=== PATIENT | male | born 1955 | race African-American/Black ===

== ENCOUNTER 2016-08-19 18:41 | Inpatient (IN) | payer OTHER ==
[2016-08-19] MEDS ORDERED: ACETAMINOPHEN 1000 MG/100 ML VIAL (NON FORMULARY) IVPB ONE (19:55)
[2016-08-19] MEDS ORDERED: ACETAMINOPHEN INJECTION 100 ML IVPB ONE (20:24)
[2016-08-19 20:51] LABS: MCH 19.3 pg (25.7-33.7); MCHC 29.7 g/dl (32.0-35.9); MEAN PLT VOLUME 6.8 fl (7.5-11.1); PLATELET COUNT 553 K/MM3 (134-434); RDW 24.7 % (11.9-15.9); WHITE BLOOD COUNT 26.1 K/mm3 (4.0-10.0)
[2016-08-19 21:02] LABS: INR 1.58 (0.82-1.09); PROTHROMBIN TIME (PATIENT) 17.5 SEC (9.98-11.88)
[2016-08-19 21:11] LABS: ALBUMIN 1.6 g/dl (3.4-5.0); ANION GAP 7 (8-16); BILIRUBIN,TOTAL 0.3 mg/dL (0.2-1.0); CALCIUM 8.2 mg/dL (8.5-10.1); CO2 19 mmol/L (21-32); COCKROFT - GAULT 39.38; CREATININE 2.7 mg/dL (0.7-1.3); GLUCOSE,RANDOM 254 mg/dL (74-106); SGOT/AST 11 U/L (15-37); SGPT/ALT 8 U/L (12-78); TOT PROT 6.9 g/dl (6.4-8.2)
[2016-08-19 21:13] LABS: ALK PHOS 145 U/L (45-117); TROPONIN I < 0.02 ng/ml (0.00-0.05)
[2016-08-19 21:16] LABS: ANISOCYTOSIS 2+; HYPOCHROMIA 3+; MICROCYTOSIS 2+; PLATELET ESTIMATE MOD INCREASED (NORMAL); SCHISTOCYTES 1+
[2016-08-19] MEDS ORDERED: INSULIN REGULAR HUMAN 100 UNITS/ML *VIAL IVPUSH ONE (21:19)
[2016-08-19] MEDS ORDERED: DEXTROSE 50%-WATER 50 ML VIAL IVPUSH ONE (21:19)
[2016-08-19] MEDS ORDERED: DEXTROSE 50%-WATER 50 ML DISP.SYRIN ONE (21:37)
[2016-08-19] MEDS ORDERED: HEMOQUE TEST 1 EACH EACH ONE (21:39)
--- NOTE | 2016-08-19 22:11 | PDOC ---
History of Present Illness <Didi Appiah - Last Filed: 08/19/16 22:48> - General History Source: Patient Exam Limitations: No Limitations - History of Present Illness Initial Comments: 08/19/16 22:11 Patient is a 60 year old male with h/o DM, osteomylitis, amputation Left TMA, and right great toe c/o syncope today. States was attempting to go to his bedroom to call for his pills, having pain in the left leg when she tried to walk. States the next thing he remembers was being on the gurney with EMS and having pain to right forehead and neck. Denies nausea, vomiting, dizziness, chest pain, abd pain. PMD:Dr. Bonilla PMHX: as above PSOCHX; lives in an adult home, (+) 5/cig/day, occ beer FamHx; noncontributory ALLERGY: NKDA GENERAL/CONSTITUTIONAL: [No fever or chills. No weakness. No weight change.] HEAD, EYES, EARS, NOSE AND THROAT: [No change in vision. No ear pain or discharge. No sore throat.] CARDIOVASCULAR: [No chest pain or shortness of breath.] RESPIRATORY: [No cough, wheezing, or hemoptysis.] GASTROINTESTINAL: [No nausea, vomiting, diarrhea or constipation. No rectal bleeding.] GENITOURINARY: [No dysuria, frequency, or change in urination.] MUSCULOSKELETAL: (+) joint or muscle swelling or pain. No neck or back pain.] SKIN AND BREASTS: (+) hyperpigmentation lower ext. No rash or easy bruising.] NEUROLOGIC: [No headache, vertigo, loss of consciousness, or loss of sensation.] PSYCHIATRIC: [No depression or anxiety.] ENDOCRINE: [No increased thirst. No abnormal weight change.] HEMATOLOGIC/LYMPHATIC: [No anemia, easy bleeding, or history of blood clots.] ALLERGIC/IMMUNOLOGIC: [No hives or skin allergy. No latex allergy.] GENERAL: [The patient is awake, alert, and fully oriented, in no acute distress. ] HEAD: [Normal with no signs of trauma.] EYES: [Pupils equal, round and reactive to light, extraocular movements intact, sclera anicteric, conjunctiva clear.] ENT: [Ears normal, nares patent, oropharynx clear without exudates. Moist mucous membranes.] NECK: [Normal range of motion, supple without lymphadenopathy, JVD, or masses. ( +) tenderness to right paraspinal.] LUNGS: [Breath sounds equal, clear to auscultation bilaterally. No wheezes, and no crackles.] HEART: [Regular rate and rhythm, normal S1 and S2 without murmur, rub.] ABDOMEN: [Soft, nontender, normoactive bowel sounds. No guarding, no rebound. No masses.] EXTREMITIES: (+) Decreased range of motion left lower extremity, (+) edema left lower extremity, hyperpigmentation left lower extremity, amputee left TMA, right great toe. No cords, erythema, (+) tenderness left lower ext NEUROLOGICAL: [Cranial nerves II through XII grossly intact. Normal speech, normal gait.] PSYCH: [Normal mood, normal affect.] SKIN: (+) Moderate swelling right forehead, ecchymosis nose, 2 cm laceration right eyebrow. Hyperpigmentation left foot, edema left lower extremity. <Mirtha De Paz - Last Filed: 08/20/16 01:52> - General Chief Complaint: Syncope/Near Syncope Stated Complaint: FALL Time Seen by Provider: 08/19/16 19:26 Past History <Didi Appiah - Last Filed: 08/19/16 22:48> - Past Medical History Anemia: No Asthma: No Cancer: No Cardiac Disorders: No CVA: No COPD: Yes CHF: No Dementia: No Diabetes: Yes (on insulin, with neuropathy , diabetic foot ulcer) GI Disorders: No Disorders: No HTN: Yes Hypercholesterolemia: No Liver Disease: No Suicide Attempt (Hx): No Seizures: No Thyroid Disease: No Lung CA: Yes (depression) - Surgical History Abdominal Surgery: Yes (HERNIA) Appendectomy: No Cardiac Surgery: No Cholecystectomy: No Lung Surgery: No Neurologic Surgery: No Orthopedic Surgery: Yes (transmetatarsal amputation left foot, rt gr toe amputation) - Psycho/Social/Smoking Cessation Hx Anxiety: Yes (PTSD since 01/07) Suicidal Ideation: No Smoking Status: No Smoking History: Never smoked Have you smoked in the past 12 months: No Number of Cigarettes Smoked Daily: 0 Cigars Per Day: 1 Information on smoking cessation initiated: No 'Breaking Loose' booklet given: 03/08/16 Hx Alcohol Use: No Drug/Substance Use Hx: No Substance Use Type: Alcohol, Marijuana Hx Substance Use Treatment: No <Mirtha De Paz - Last Filed: 08/20/16 01:52> - Past Medical History Allergies/Adverse Reactions: Allergies Allergy/AdvReac Type Severity Reaction Status Date / Time shellfish derived Allergy Severe "HIVES" Verified 08/19/16 18:52 No Known Drug Allergies Allergy Verified 08/19/16 18:52 Home Medications: Ambulatory Orders Amlodipine Besylate [Norvasc -] 10 mg PO DAILY 11/07/14 Ascorbate Calcium [Vitamin C] 500 mg PO DAILY 11/07/14 Duloxetine HCl 30 mg PO DAILY 11/07/14 Ferrous Sulfate [Feosol] 325 mg PO DAILY 11/07/14 Folic Acid - 1 mg PO DAILY 11/07/14 Insulin (Levemir) [Levemir Flexpen -] 30 units SQ BID 11/07/14 Insulin Aspart [Novolog Flexpen] 0 unit SQ UTDICT 11/07/14 Trazodone HCl 300 mg PO HS 11/07/14 Vitamin B Complex [Super B Complex] 1 each PO DAILY 11/07/14 Zinc Sulfate 220 mg PO DAILY 11/07/14 Doxazosin Mesylate [Cardura -] 4 mg PO DAILY #30 tablet 11/24/14 Cholecalciferol (Vitamin D3) [Vitamin D3] 50,000 unit PO WEEKLY 12/07/15 Aspirin [ASA -] 81 mg PO DAILY 03/08/16 Hydrochlorothiazide [Hctz -] 25 mg PO DAILY #30 tab MDD 1 08/01/16 Oxycodone HCl/Acetaminophen [Percocet 5-325 mg Tablet] 1 tab PO QID #120 tablet MDD 4 08/01/16 Albuterol Sulfate Inhaler - [Ventolin Hfa Inhaler -] 2 inh PO Q4H PRN 08/19/16 Insulin Glargine,Hum.rec.anlog [Lantus Solostar PEN (NF)] 15 units SQ BID Metformin HCl [Metformin HCl ER] 500 mg PO BID 08/19/16 Mirtazapine [Remeron -] 30 mg PO HS 08/19/16 Omeprazole 20 mg PO DAILY 08/19/16 Pregabalin [Lyrica -] 150 mg PO TID MDD 2 08/19/16 Valsartan [Diovan] 80 mg PO DAILY 08/19/16 *Physical Exam - Vital Signs Last Vital Signs Temp Pulse Resp BP Pulse Ox 98.9 F 75 20 117/70 99 08/19/16 22:01 08/19/16 22:01 08/19/16 22:01 08/19/16 22:01 08/19/16 22:01 <Didi Appiah - Last Filed: 08/19/16 22:48> - Vital Signs Last Vital Signs Temp Pulse Resp BP Pulse Ox 99.1 F 97 H 20 135/66 91 L 08/19/16 19:06 08/19/16 18:52 08/19/16 18:52 08/19/16 18:52 08/19/16 18:52 <Mirtha De Paz - Last Filed: 08/20/16 01:52> ED Treatment Course - LABORATORY CBC & Chemistry Diagram: 08/19/16 20:40 08/19/16 20:40 - ADDITIONAL ORDERS Additional order review: Laboratory Results 08/19/16 08/19/16 08/19/16 21:00 20:40 20:40 INR Sodium 130 L Potassium 6.8 H* D Chloride 104 Carbon Dioxide 19 L D Anion Gap 7 L BUN 41 H D Creatinine 2.7 H D Creat Clearance w eGFR 24.23 Random Glucose 254 H D Calcium 8.2 L Total Bilirubin 0.3 D AST 11 L D ALT 8 L D Alkaline Phosphatase 145 H D Creatine Kinase 141 Troponin I < 0.02 Total Protein 6.9 Albumin 1.6 L D Stool Occult Blood Negative Alcohol, Quantitative < 5.0 08/19/16 20:40 INR 1.58 H D Sodium Potassium Chloride Carbon Dioxide Anion Gap BUN Creatinine Creat Clearance w eGFR Random Glucose Calcium Total Bilirubin AST ALT Alkaline Phosphatase Creatine Kinase Troponin I Total Protein Albumin Stool Occult Blood Alcohol, Quantitative 08/19/16 20:40 RBC 1.92 L D MCV 65.0 L D MCHC 29.7 L RDW 24.7 H MPV 6.8 L D Neutrophils % 90.0 H D Lymphocytes % 8.0 D Monocytes % 2.0 L - Medications Given in the ED: ED Medications Discontinued Medications Generic Name Dose Route Start Last Admin Trade Name Freq PRN Reason Stop Dose Admin Acetaminophen 1,000 mg 08/19/16 19:55 08/19/16 20:25 Ofirmev Injection - IVPB 08/19/16 19:56 1,000 mg ONCE ONE Administration Dextrose 50 ml 08/19/16 21:19 08/19/16 21:56 D50w (Vial) - IVPUSH 08/19/16 21:20 50 ml NOW ONE Administration Insulin Human Regular 10 units 08/19/16 21:19 08/19/16 21:56 Novolin R Vial *For Ivpush Or Iv Drip Only* IVPUSH 08/19/16 21:20 10 units ONCE ONE Administration <TdDiid - Last Filed: 08/19/16 22:48> - LABORATORY CBC & Chemistry Diagram: 08/19/16 23:02 08/19/16 23:02 - ADDITIONAL ORDERS Additional order review: Laboratory Results 08/19/16 08/19/16 08/19/16 21:00 20:40 20:40 INR 1.58 H D Sodium 130 L Potassium 6.8 H* D Chloride 104 Carbon Dioxide 19 L D Anion Gap 7 L BUN 41 H D Creatinine 2.7 H D Creat Clearance w eGFR 24.23 Random Glucose 254 H D Calcium 8.2 L Total Bilirubin 0.3 D AST 11 L D ALT 8 L D Alkaline Phosphatase 145 H D Creatine Kinase 141 Troponin I < 0.02 Total Protein 6.9 Albumin 1.6 L D Stool Occult Blood Negative 08/19/16 20:40 RBC 1.92 L D MCV 65.0 L D MCHC 29.7 L RDW 24.7 H MPV 6.8 L D Neutrophils % 90.0 H D Lymphocytes % 8.0 D Monocytes % 2.0 L - RADIOLOGY Radiology Studies Ordered: Category Date Time Status CERVICAL SPINE CT W/O CONTR [CT] Stat CT Scan 08/19/16 19:[address] W/O CONTRAST [CT] Stat CT Scan 08/19/16 19:[address] WITHOUT CONTRAST [CT] Stat CT Scan 08/19/16 19:52 Taken CHEST X-RAY PORTABLE* [RAD] Stat Radiology 08/19/16 21:19 Ordered - Medications Given in the ED: ED Medications Discontinued Medications Generic Name Dose Route Start Last Admin Trade Name Freq PRN Reason Stop Dose Admin Acetaminophen 1,000 mg 08/19/16 19:55 08/19/16 20:25 Ofirmev Injection - IVPB 08/19/16 19:56 1,000 mg ONCE ONE Administration Dextrose 50 ml 08/19/16 21:19 08/19/16 21:56 D50w (Vial) - IVPUSH 08/19/16 21:20 50 ml NOW ONE Administration Insulin Human Regular 10 units 08/19/16 21:19 08/19/16 21:56 Novolin R Vial *For Ivpush Or Iv Drip Only* IVPUSH 08/19/16 21:20 10 units ONCE ONE Administration <Mirtha De Paz - Last Filed: 08/20/16 01:52> Medical Decision Making - Medical Decision Making 08/19/16 23:38 Patient is a 60 year old male with h/o DM, osteomylitis, HTN, amputation Left TMA, and right great toe c/o syncope today, no prodrome ext for pain to his leg. will get labs, ct head and neck tylenol for pain CT head neg for bleed CT neck no fracture noted to have hgb of 3, will get type and transfuse 2 units PRBC noted to have K+ 6 will treat with insulin, D50 1 amp EKG SR rate 74, NAD, PAC CXR neg wbc of 26 without source will get blood cultures x 2 and lactic D/W with ICU will admit d/w with hospitalist will admit. <Mirtha De Paz - Last Filed: 08/20/16 01:52> *DC/Admit/Observation/Transfer - Discharge Dispostion Admit: Yes <Didi Appiah - Last Filed: 08/19/16 22:48> <Mirtha De Paz - Last Filed: 08/20/16 01:52> Diagnosis at time of Disposition: Edema of both legs, S/P amputation, Hyperkalemia, Severe anemia - Referrals Addendum entered and electronically signed by Mirtha De Paz 08/20/16 04: 21: Progress Note - Progress Note Progress Note: Late entery procedure note 2.5 cm y shaped laceration to the right eyebrow was anesthetized locally, cleansed betadine, wound was explored for FB and irrigated, no FB found. Wound was sutured with 5-0 nylon x 9. Patient tolerated procedure well. Informed that the sutures need to be removed in 7 days.
[2016-08-19 23:11] LABS: MCHC 30.1 g/dl (32.0-35.9); MEAN CELL VOLUME 65.4 fl (80-96); MEAN PLT VOLUME 7.1 fl (7.5-11.1); PLATELET COUNT 561 K/MM3 (134-434); RDW 25.1 % (11.9-15.9); WHITE BLOOD COUNT 26.3 K/mm3 (4.0-10.0)
[2016-08-19 23:12] LABS: MCH 19.7 pg (25.7-33.7)
[2016-08-19 23:30] LABS: CALCIUM 8.7 mg/dL (8.5-10.1); COCKROFT - GAULT 37.97; CREATININE 2.8 mg/dL (0.7-1.3)
[2016-08-20] MEDS ORDERED: SODIUM POLYSTYRENE SULFONATE 15 GM/60 ML BOTTLE PO ONE ×2 (00:08→21:00)
[2016-08-20] MEDS ORDERED: ALBUTEROL SO4 6.7 GM HFA INHALER IH PRN (00:08)
--- NOTE | 2016-08-20 00:24 | HP ---
<Cinthia Aparicio - Last Filed: 08/20/16 01:05> CHIEF COMPLAINT: Syncope x1 episode PCP: HISTORY OF PRESENT ILLNESS: 60 yo M presents to ED after an episode of syncope that occurred at the assisted living facility. Patient reports remembering getting out of bed and the next thing he remembers is being transported to the hospital. He lost consciousness and did sustain head trauma. He reports recent Hx of fatigue, decreased appetite and progressively declining functional status. His mobility is limited due to left foot transmetatarsal amputation as well as Hx of LE ulcers. Initial work up in the ED revealed anemia with hgb levels of 3.7, STAT blood transfusion was ordered and pt was referred for further management to medical team. Recent Travel: Denies PAST MEDICAL HISTORY: - HTN - diabetes - diabetic neuropathy - diabetic nephropathy - left foot osteomyelitis PAST SURGICAL HISTORY: - Left foot transmetatarsal amputation - Right foot toe amputation. Social History: Smokin cigarettes a day since 1969 Alcohol: Denies Drugs: Denies Family History: Allergies shellfish derived Allergy (Severe, Verified 08/19/16 18:52) "HIVES" SWELLING No Known Drug Allergies Allergy (Verified 08/19/16 18:52) HOME MEDICATIONS: Home Medications Medication Instructions Recorded Amlodipine Besylate [Norvasc -] 10 mg PO DAILY 11/07/14 Ascorbate Calcium [Vitamin C] 500 mg PO DAILY 11/07/14 Duloxetine HCl 30 mg PO DAILY 11/07/14 Ferrous Sulfate [Feosol] 325 mg PO DAILY 11/07/14 Folic Acid - 1 mg PO DAILY 11/07/14 Insulin (Levemir) [Levemir Flexpen 30 units SQ BID 11/07/14 -] Insulin Aspart [Novolog Flexpen] 0 unit SQ UTDICT 11/07/14 Trazodone HCl 300 mg PO HS 11/07/14 Vitamin B Complex [Super B Complex] 1 each PO DAILY 11/07/14 Zinc Sulfate 220 mg PO DAILY 11/07/14 Doxazosin Mesylate [Cardura -] 4 mg PO DAILY #30 tablet 11/24/14 Cholecalciferol (Vitamin D3) 50,000 unit PO WEEKLY 12/07/15 [Vitamin D3] Aspirin [ASA -] 81 mg PO DAILY 03/08/16 Hydrochlorothiazide [Hctz -] 25 mg PO DAILY #30 tab MDD 1 08/01/16 Oxycodone HCl/Acetaminophen 1 tab PO QID #120 tablet MDD 4 08/01/16 [Percocet 5-325 mg Tablet] Albuterol Sulfate Inhaler - 2 inh PO Q4H PRN 08/19/16 [Ventolin Hfa Inhaler -] Insulin Glargine,Hum.rec.anlog 15 units SQ BID 08/19/16 [Lantus Solostar PEN (NF)] Metformin HCl [Metformin HCl ER] 500 mg PO BID 08/19/16 Mirtazapine [Remeron -] 30 mg PO HS 08/19/16 Omeprazole 20 mg PO DAILY 08/19/16 Pregabalin [Lyrica -] 150 mg PO TID MDD 2 08/19/16 Valsartan [Diovan] 80 mg PO DAILY 08/19/16 REVIEW OF SYSTEMS CONSTITUTIONAL: + fatigue, decreased appetite, poor functional status Absent: fever, chills, diaphoresis, malaise HEENT: Absent: rhinorrhea, nasal congestion, throat pain, throat swelling, difficulty swallowing, mouth swelling, ear pain, eye pain, visual changes CARDIOVASCULAR: Absent: chest pain, syncope, palpitations, irregular heart rate, lightheadedness , peripheral edema RESPIRATORY: Absent: cough, shortness of breath, dyspnea with exertion, orthopnea, wheezing, stridor, hemoptysis GASTROINTESTINAL: Absent: abdominal pain, abdominal distension, nausea, vomiting, diarrhea, constipation, melena, hematochezia GENITOURINARY: Absent: dysuria, frequency, urgency, hesitancy, hematuria, flank pain, genital pain MUSCULOSKELETAL: Absent: myalgia, arthralgia, joint swelling, back pain, neck pain SKIN: Absent: rash, itching, pallor HEMATOLOGIC/IMMUNOLOGIC: Absent: easy bleeding, easy bruising, lymphadenopathy, frequent infections ENDOCRINE: Absent: unexplained weight gain, unexplained weight loss, heat intolerance, cold intolerance NEUROLOGIC: Absent: headache, focal weakness or paresthesias, dizziness, unsteady gait, seizure, mental status changes, bladder or bowel incontinence PSYCHIATRIC: Absent: anxiety, depression, suicidal or homicidal ideation, hallucinations. PHYSICAL EXAMINATION GENERAL: Awake, alert, and fully oriented, in no acute distress. HEAD: R eyebrow laceration and periorbital swelling. Poor dentition. EYES: Pupils equal, round and reactive to light, extraocular movements intact, sclera anicteric, conjunctiva clear. No lid lag. EARS, NOSE, THROAT: Ears normal, nares patent, oropharynx clear without exudates. Moist mucous membranes. NECK: Normal range of motion, supple without lymphadenopathy, JVD, or masses. LUNGS: Breath sounds equal, clear to auscultation bilaterally. No wheezes, and no crackles. No accessory muscle use. HEART: Regular rate and rhythm, normal S1 and S2 without murmur, rub or gallop. ABDOMEN: Soft, nontender, not distended, normoactive bowel sounds, no guarding, no rebound, no masses. No hepatomegaly or splenomegaly. MUSCULOSKELETAL: Normal range of motion at all joints. No bony deformities or tenderness. No CVA tenderness. UPPER EXTREMITIES: 2+ pulses, warm, well-perfused. No cyanosis. No clubbing. No peripheral edema. LOWER EXTREMITIES: 2+ pulses, warm, well-perfused. No calf tenderness. L foot transmetatarsal amputation. Hyperkeratosis on the plantar aspect of L foot, 3 cm fluctuant mass on medial aspect of L foot, nontender, no drainage. Trace pedal edema in LE bilaterally. NEUROLOGICAL: Cranial nerves II-XII intact. Normal speech. Normal gait. PSYCHIATRIC: Cooperative. Good eye contact. Appropriate mood and affect. SKIN: Warm, dry, normal turgor, no rashes or lesions noted, normal capillary refill. Laboratory Results - last 24 hr 08/19/16 23:37 Crossmatch See Detail Head/Neck CT Preliminary CT neck result discussed with ED physician and is significant for possible C spine ligamental injury. Official report pending. No evidence of spinal cord involvement. ECG NSR, hyperacute T waves Problem list 1. Syncope 2. Anemia 3. Microcytosis 4. Leukocytosis 5. Thrombocytosis 6. Coagulopathy 7. Severe hypokalemia 8. Acute on chronic renal insufficiency 9. Hyponitremia 10. Facial trauma 11. Abnormal findings of the CT scan of the neck Assessment and Plan 1.) Syncope- likely secondary to underlying symptomatic anemia. -Treat underlying cause 2.) Severe microcytic anemia. Differential Dx would include severe iron deficiency, hemolytic anemia, however, in presence of leukocytosis and thrombocytosis MDS can not be excluded. -Obtain iron, TIBC, ferritin and LDH level -Manual differential -One unit of pack RBC is ordered and will be transfused -Follow up hgb levels after transfusion -Hematology evaluation 3.) Hypokalemia -STAT dose of insulin and D50 was given in ED -Repeat potassium level was still elevated -STAT kayexalate ordered -Will follow up potassium in AM 4.) Acute on chronic renal insufficiency- likely diabetic nephropathy exacerbated by dehydration. -IVF -Monitor BMP 5.) Head trauma- No acute fx on CT noted, right eyebrow laceration was repaired. -Monitor for signs of bleeding -Local care 6.) Abnormal findings of CT scan of neck suggestive of possible ligamental injury. No spinal cord involvement. No neurological deficit noted on exam. -Obtain MRI of neck -Follow up official CT scan report 7.) Diabetes -For now will manage with insulin sliding scale, monitor blood glucose and adjust basal insulin levels accordingly. -Continue levemir 8.) Leukocytosis- acute infectious process can not be excluded, source could potentially be UTI vs soft tissue infection (L foot). -Obtain urinalysis -No antibiotics at this time unless source is identified 9.) L foot subcutaneous fluid collection likely seroma but considering prior Hx of osteomyelitis and current leukocytosis abscess can not be excluded. -Podiatry evaluation DVT ppx -SCDs -No pharmacological anticoagulation at this time due to coagulopathy and risk of bleeding. Based on severity patients symptoms upon presentation, need for blood transfusion, imaging studies, and close monitoring in inpatient setting with anticipated length of hospitalization greater than 2 midnights. Will admit as inpatient. Documentation prepared by Cinthia Aparicio acting as medical biller coder for Eligio Griffin M.D. <Eligio Griffin - Last Filed: 08/22/16 06:42> Visit type - Emergency Visit Emergency Visit: Yes ED Registration Date: 08/19/16 Care time: The patient presented to the Emergency Department on the above date and was hospitalized for further evaluation of their emergent condition. - New Patient This patient is new to me today: Yes Date on this admission: 08/22/16 - Critical Care Critical Care patient: Yes Total Critical Care Time (in minutes): 50 Critical Care Statement: The care of this patient involved high complexity decision making to prevent further life threatening deterioration of the patient 's condition and/or to evalute & treat vital organ system(s) failure or risk of failure.
[2016-08-20 03:37] LABS: URINE APPEARANCE SLCLOUDY; URINE BILIRUBIN NEGATIVE (NEGATIVE); URINE BLOOD NEGATIVE (NEGATIVE); URINE COLOR YELLOW; URINE GLUCOSE (UA) NEGATIVE (NEGATIVE); URINE KETONE NEGATIVE (NEGATIVE); URINE NITRITE NEGATIVE (NEGATIVE); URINE UROBILINOGEN NEGATIVE E.U./dl (0.2-1.0)
[2016-08-20 03:46] LABS: URINE LEUK ESTERASE TRACE (NEGATIVE); URINE PROTEIN 2+ (NEGATIVE)
[2016-08-20 03:55] LABS: URINE BACTERIA RARE /hpf (NONE SEEN); URINE HYALINE CAST 11 /lpf; URINE MUCUS RARE; URINE RBC 11 /hpf (0-3); URINE WBC 10 /hpf (3-5)
[2016-08-20 03:57] LABS: URINE MARIJUANA THC NEGATIVE ng/ml (CUTOFF=50)
[2016-08-20] MEDS ORDERED: CEFTRIAXONE 1 GM in DEXTROSE 5%-WATER - 100 ML IVPB ONE (06:14)
[2016-08-20 06:22] LABS: BASOPHIL 0.2 % (0-2.0); EOSINOPHIL 0.1 % (0-4.5); MCH 22.2 pg (25.7-33.7); MCHC 31.9 g/dl (32.0-35.9); MEAN CELL VOLUME 69.6 fl (80-96); MEAN PLT VOLUME 6.8 fl (7.5-11.1); PLATELET COUNT 579 K/MM3 (134-434); RDW 27.2 % (11.9-15.9); WHITE BLOOD COUNT 23.1 K/mm3 (4.0-10.0)
[2016-08-20 06:49] LABS: INR 1.53 (0.82-1.09)
[2016-08-20 07:09] LABS: ALBUMIN 1.6 g/dl (3.4-5.0); CALCIUM 8.7 mg/dL (8.5-10.1); COCKROFT - GAULT 39.38; CREATININE 2.7 mg/dL (0.7-1.3); PHOSPHOROUS 6.8 mg/dL (2.5-4.9)
[2016-08-20 07:10] LABS: BILIRUBIN,TOTAL 0.5 mg/dL (0.2-1.0)
[2016-08-20] MEDS: SODIUM CHLORIDE 1,000 ML IV SCH (07:13)
[2016-08-20] MEDS ORDERED: cefTRIAXone 1 GM/50 ML BAG (PRE-DOCKED) IVPB ONE (07:15)
[2016-08-20] MEDS ORDERED: PREGABALIN 50 MG CAPSULE ONE ×2 (07:54→13:50)
[2016-08-20] MEDS ORDERED: CEFTRIAXONE 50 ML ONE (07:55)
[2016-08-20] MEDS ORDERED: PREGABALIN 100 MG CAPSULE ONE ×2 (07:55→13:50)
[2016-08-20] MEDS ORDERED: INSULIN DETEMIR 100 UNITS/ML MDV SQ ONE (08:03)
[2016-08-20] MEDS ORDERED: CALCIUM GLUCONATE 10% - 1,000 MG/10 ML VIAL IVPUSH ONE (08:03)
[2016-08-20] MEDS ORDERED: INSULIN (NOVOLOG) ASPART 100 UNITS/ML 10ML VIAL ONE ×2 (08:03→08:08)
[2016-08-20] MEDS ORDERED: SODIUM BICARBONATE 4.2% 5 MEQ/10 ML DISP.SYRIN IVPUSH ONE (08:06)
[2016-08-20] MEDS ORDERED: DEXTROSE 50%-WATER 50 ML VIAL IVPUSH ONE (08:16)
[2016-08-20] MEDS ORDERED: INSULIN REGULAR HUMAN 100 UNITS/ML *VIAL IVPUSH ONE (08:20)
[2016-08-20] MEDS: PREGABALIN 75 MG CAPSULE PO SCH ×3 (08:20→22:12)
[2016-08-20] MEDS: INSULIN DETEMIR 100 UNITS/ML MDV SQ SCH ×2 (08:21→21:00)
[2016-08-20] MEDS: INSULIN SLIDING SCALE (NOVOLOG) 1 VIAL SQ SCH ×4 (08:22→23:15)
[2016-08-20] MEDS ORDERED: DEXTROSE 50%-WATER 50 ML VIAL ONE (08:31)
[2016-08-20 09:26] LABS: LDH 183 U/L (87-241)
[2016-08-20 09:27] LABS: FERRITIN 398.205 ng/ml (16.4-293.9)
[2016-08-20 09:43] LABS: MCH 21.6 pg (25.7-33.7); MCHC 30.9 g/dl (32.0-35.9); MEAN CELL VOLUME 69.8 fl (80-96); MEAN PLT VOLUME 6.8 fl (7.5-11.1); PLATELET COUNT 552 K/MM3 (134-434); RDW 26.1 % (11.9-15.9); WHITE BLOOD COUNT 23.5 K/mm3 (4.0-10.0)
[2016-08-20] MEDS ORDERED: VALSARTAN 80 MG TABLET (UD) PO SCH (10:00)
[2016-08-20] MEDS: FOLIC ACID 1 MG TABLET (FP) PO SCH (10:12)
[2016-08-20] MEDS: DULoxetine HCL 30 MG CAPSULE.DR (FP) PO SCH (10:12)
[2016-08-20] MEDS: FERROUS SO4 325 MG TABLET (FP) PO SCH (10:12)
[2016-08-20] MEDS: DOXAZOSIN MESYLATE 4 MG TABLET PO SCH (10:12)
[2016-08-20] MEDS: VITAMIN B COMPLEX W/C COMBO TABLET (FP) PO SCH (10:13)
[2016-08-20] MEDS: amLODIPine BESYLATE 10 MG TABLET (FP) PO SCH (10:13)
[2016-08-20] MEDS: PANTOPRAZOLE 20 MG TABLET (FP) PO SCH (10:13)
[2016-08-20] MEDS: ZINC SULFATE 220 MG CAPSULE (FP) PO SCH (10:13)
[2016-08-20] MEDS: ASCORBIC ACID 500 MG TABLET (FP) PO SCH (10:13)
[2016-08-20] MEDS ORDERED: OXYCODONE/APAP 5/325MG COMBO TABLET ONE ×2 (10:27→13:50)
--- NOTE | 2016-08-20 10:29 | CONSULT ---
Consult - text type - Consultation Consultation Note: Podiatry Consultation: 60 year old IDDM M presents to ED for admission for syncopal episode, states he passed out at home. Currently he denies F/V/N/C/SOB/CP. Currently afebrile, VSS. Has history of multiple amputations including L TMA, R 1st ray amputations by Dr. Artie Galvan DPM. PMHx: IDDM, HTN, HLP Meds: noted in chart ALL: shellfish GUI: Pedal pulses 1/4, TG warm-warmer LLE, CFT brisk to remaining toes. There is a R 1st ray amputation and L TMA amputation healed well, no open wounds. There is fluctuance to the medial arch L foot with no open wounds. There is no ascending cellulitis, no soft tissue crepitus. There is no tenderness to palpation. There is tenderness to the posterior calf. WBC: 23.5 H/H: 5.5/17.9 Bilateral foot XR: report pending Imp: 60 year old IDDM M s/p amputations B/L feet ? of abscess L foot 1. IV abx 2. Recommend Venous duplex LLE 3. Will f/u report of foot XR 4. 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 Dr. Cole DPM. Not sure if he has privileges here. 5. If needed, please reconsult. Thanks. Anna Shirley DPM
[2016-08-20] MEDS: OXYCODONE/APAP 5/325MG COMBO TABLET PO SCH ×4 (10:32→22:30)
--- NOTE | 2016-08-20 11:07 | EKG ---
Test Reason : Blood Pressure : / mmHG Vent. Rate : 093 BPM Atrial Rate : 094 BPM P-R Int : 000 ms QRS Dur : 096 ms QT Int : 330 ms P-R-T Axes : 037 068 054 degrees QTc Int : 410 ms SINUS RHYTHM WITH PREMATURE ATRIAL COMPLEXES INCOMPLETE RIGHT BUNDLE BRANCH BLOCK BORDERLINE ECG WHEN COMPARED WITH ECG OF 07-NOV-2014 16:47, PREMATURE ATRIAL COMPLEXES ARE NOW PRESENT VENT. RATE HAS INCREASED BY 33 BPM QRS VOLTAGE HAS DECREASED CRITERIA FOR SEPTAL INFARCT ARE NO LONGER PRESENT T WAVE AMPLITUDE HAS DECREASED IN LATERAL LEADS Confirmed by ZAN LEGGETT MD ([id number]) on 08/20/2016 11:07:31 AM Referred By: Confirmed By:ZAN LEGGETT MD
[2016-08-20] MEDS ORDERED: INSULIN REGULAR HUMAN 100 UNITS/ML *VIAL ONE (11:43)
[2016-08-20 12:32] LABS: CALCIUM 8.4 mg/dL (8.5-10.1); COCKROFT - GAULT 42.53; CREATININE 2.5 mg/dL (0.7-1.3)
--- NOTE | 2016-08-20 13:41 | MSN ---
Progress Note (short form) - Note Progress Note: SUBJECTIVE: Pt seen and examined at bedside. Pt reports that he does not feel well. Admits to fatigue, decrease in appetite with 10lb weight loss in past 2 weeks, and decreased functional status. He reports a cough with clear productive sputum for the past couple weeks. States he has neck pain w/o radiation into the arms. His breathing has been labored the past few weeks as well. Denies CP or palpitations. Has noticed a decrease in the number of BM recently which he attributes to not eating. Says he has not been producing as much urine lately either. Admits to not drinking enough water recently. Denies fevers, chills, abdominal pain, nausea, vomiting, dysuria, or frequency. Active Medications Generic Name Dose Route Start Last Admin Trade Name Freq PRN Reason Stop Dose Admin Albuterol Sulfate 2 puff 08/20/16 00:08 Ventolin Hfa Inhaler - IH Q4H PRN WHEEZING Amlodipine Besylate 10 mg 08/20/16 10:00 08/20/16 10:13 Norvasc - PO 10 mg DAILY IGGY Administration Ascorbic Acid 500 mg 08/20/16 10:00 08/20/16 10:13 Vitamin C - PO 500 mg DAILY IGGY Administration Doxazosin Mesylate 4 mg 08/20/16 10:00 08/20/16 10:12 Cardura - PO 4 mg DAILY IGGY Administration Duloxetine HCl 30 mg 08/20/16 10:00 08/20/16 10:12 Cymbalta - PO 30 mg DAILY IGGY Administration Ferrous Sulfate 325 mg 08/20/16 10:00 08/20/16 10:12 Feosol - PO 325 mg DAILY IGGY Administration Folic Acid 1 mg 08/20/16 10:00 08/20/16 10:12 Folic Acid - PO 1 mg DAILY IGGY Administration Sodium Chloride 1,000 mls @ 75 mls/hr 08/20/16 00:45 08/20/16 07:13 Normal Saline - IV 75 mls/hr ASDIR IGGY Administration Insulin Aspart 1 vial 08/20/16 07:00 08/20/16 11:33 Novolog Vial Sliding Scale - SQ 4 units ACHS IGGY Administration Protocol Insulin Detemir 30 units 08/20/16 07:00 08/20/16 08:21 Levemir Vial SQ 30 units BIDI IGGY Administration Mirtazapine 30 mg 08/20/16 22:00 Remeron - PO HS IGGY Multivitamins 1 each 08/20/16 10:00 08/20/16 10:13 Total B With C - PO 1 each DAILY IGGY Administration Oxycodone/Acetaminophen 1 combo 08/20/16 10:00 08/20/16 10:32 Percocet 5/325 - PO 1 combo QID IGGY Administration Pantoprazole Sodium 20 mg 08/20/16 10:00 08/20/16 10:13 Protonix - PO 20 mg DAILY IGGY Administration Pregabalin 150 mg 08/20/16 06:00 08/20/16 08:20 Lyrica - PO 150 mg TID IGGY Administration Trazodone HCl 300 mg 08/20/16 22:00 Desyrel - PO HS IGGY Valsartan 80 mg 08/20/16 10:00 08/20/16 10:12 Diovan - PO 80 mg DAILY IGGY Administration Zinc Sulfate 220 mg 08/20/16 10:00 08/20/16 10:13 Orazinc - PO 220 mg DAILY IGGY Administration OBJECTIVE: Vital Signs Period Temp Pulse Resp BP Sys/Gutierrez Pulse Ox Last 24 Hr 97.6 F-99.8 F 68-97 10-20 109-138/58-88 91-100 GENERAL: AAOx3 in NAD HEAD: R forehead laceration approximated with sutures, swelling of R periorbital soft tissue, R scleral injection NECK: No JVD, supple, no LAD in cervical, clavicular, or LUNGS: Coarse breath sounds BL with no crackles, rhonchi, wheezing HEART: RRR with +S1/S2, no m/r/g ABDOMEN: Hard, distended, tympanic to percussion, NBS, no TTP : Serna in place, draining yellow urine EXT: L TMA healed with no erythema, warmth, drainage. R great toe amp healed, with no erythema, warmth, drainage. BL pitting edema (R up to mid tibia, L up to femur). L leg swollen 2x > R leg NEURO: Loss of sensation to light touch BL below knees, CBC WBC 23.5 K/mm3 (4.0-10.0) H 08/20/16 09:00 RBC 2.57 M/mm3 (4.00-5.60) L 08/20/16 09:00 Hgb 5.5 GM/dL (11.7-16.9) L* 08/20/16 09:00 Hct 17.9 % (35.4-49) L 08/20/16 09:00 MCV 69.8 fl (80-96) L 08/20/16 09:00 MCHC 30.9 g/dl (32.0-35.9) L 08/20/16 09:00 RDW 26.1 % (11.9-15.9) H 08/20/16 09:00 Plt Count 552 K/MM3 (134-434) H 08/20/16 09:00 MPV 6.8 fl (7.5-11.1) L 08/20/16 09:00 Neutrophils % 87.0 % (42.8-82.8) H 08/20/16 06:15 Lymphocytes % 4.5 % (8-40) L D 08/20/16 06:15 Monocytes % 8.2 % (3.8-10.2) D 08/20/16 06:15 Eosinophils % 0.1 % (0-4.5) D 08/20/16 06:15 Basophils % 0.2 % (0-2.0) 08/20/16 06:15 Differential Comment Manual diff done 08/19/16 20:40 Platelet Estimate Mod increased (NORMAL) 08/19/16 20:40 Hypochromic-Microcytic 3+ 08/19/16 20:40 Anisocytosis 2+ 08/19/16 20:40 Microcytosis 2+ 08/19/16 20:40 Schistocytes 1+ 08/19/16 20:40 Morphology Comment Slide scanned 08/19/16 20:40 Retic Count Cancelled 08/20/16 06:15 CMP Sodium 134 mmol/L (136-145) L 08/20/16 11:40 Potassium 5.8 mmol/L (3.5-5.1) H 08/20/16 11:40 Chloride 107 mmol/L (98-107) 08/20/16 11:40 Carbon Dioxide 19 mmol/L (21-32) L 08/20/16 11:40 Anion Gap 8 (8-16) 08/20/16 11:40 BUN 44 mg/dL (7-18) H 08/20/16 11:40 Creatinine 2.5 mg/dL (0.7-1.3) H 08/20/16 11:40 Creat Clearance w eGFR 24.23 (>60) 08/20/16 06:15 POC Glucometer [id number] UNITS (()) 08/20/16 11:30 Random Glucose 171 mg/dL (74-106) H 08/20/16 11:40 Lactic Acid 1.135 mmol/L (0.4-2.0) 08/19/16 22:20 Calcium 8.4 mg/dL (8.5-10.1) L 08/20/16 11:40 Phosphorus 6.8 mg/dL (2.5-4.9) H D 08/20/16 06:15 Ferritin 398.205 ng/ml (16.4-293.9) H 08/19/16 20:40 Total Bilirubin 0.5 mg/dL (0.2-1.0) D 08/20/16 06:15 AST 13 U/L (15-37) L 08/20/16 06:15 ALT 8 U/L (12-78) L 08/20/16 06:15 Alkaline Phosphatase 145 U/L (45-117) H 08/20/16 06:15 LD Total 183 U/L (87-241) 08/19/16 20:40 Creatine Kinase 141 IU/L (39-308) 08/19/16 20:40 Troponin I < 0.02 ng/ml (0.00-0.05) 08/19/16 20:40 Total Protein 7.0 g/dl (6.4-8.2) 08/20/16 06:15 Albumin 1.6 g/dl (3.4-5.0) L 08/20/16 06:15 Urine Test Results Urine Color Yellow 08/20/16 03:30 Urine Appearance Slcloudy 08/20/16 03:30 Urine pH 5.0 (5.0-8.0) 08/20/16 03:30 Ur Specific [place] 1.016 (1.001-1.035) 08/20/16 03:30 Urine Protein 2+ (NEGATIVE) H 08/20/16 03:30 Urine Glucose (UA) Negative (NEGATIVE) 08/20/16 03:30 Urine Ketones Negative (NEGATIVE) 08/20/16 03:30 Urine Blood Negative (NEGATIVE) 08/20/16 03:30 Urine Nitrite Negative (NEGATIVE) 08/20/16 03:30 Urine Bilirubin Negative (NEGATIVE) 08/20/16 03:30 Ur Leukocyte Esterase Trace (NEGATIVE) H 08/20/16 03:30 Urine RBC 11 /hpf (0-3) 08/20/16 03:30 Urine WBC 10 /hpf (3-5) 08/20/16 03:30 Ur Epithelial Cells Rare /hpf (FEW) 08/20/16 03:30 Urine Bacteria Rare /hpf (NONE SEEN) 08/20/16 03:30 Urine Mucus Rare 08/20/16 03:30 FOBT: negative Head, Facial Bones, Cervical Spine CT: no intracranial/extracranial bleeding, no edema, no mass, no evidence of ischemia, + R supraorbital soft tissue swelling with laceration, no facial or spinal Fx MRI C-spine: prevertebral, retropharyngeal fluid collection/edema, likely non- infectious in etiology CXR: no acute pathology A/P: Pt is a 60 yo M with PMHx of DM, HTN, diabetic neuropathy with BL foot amputations, and CKD who presents to the ED s/p syncopal episode from standing position with +LOC and +head trauma. Pt was found to have a Hgb of 3.7 and WBC of 26.1 upon presentation. 1. Syncope -Most likely 2/2 Sx anemia -Workup and treat the underlying anemia -Put pt on telemetry 2. Microcytic, hypochromic anemia -2/2 severe iron deficiency vs. hemolytic anemia vs. anemia of chronic disease ( CKD) vs. hematologic disorder (MDS/MM/leukemia) vs. GI loss -CBC ordered by PCP in 02/2016 showed Hgb of 9.1 -FOBT negative -Pt reports Hx of colonoscopy in December of 2015 with subsequent Bx of colonic polyps negative. Pt reports nml EGD done around the same time. Both performed by Dr. Etienne -S/P transfusion of 4U PRBCs. Repeat Hgb after 2U was 5.3. Order 1 more unit and repeat CBC 2 hours after transfusion -Increased ferritin of 400 and nml LDH. Other iron studies pending -Hem consult pending 3. Hyperkalemia -Resolving -Given Ca gluconate, Insulin/D50, and kaexylate in ED -Continue to trend 4. Acute on chronic renal failure -2/2 to DM vs. HTN vs. malignancy vs. nephrotic syndrome -CMP ordered by PCP in 02/2016 showed BUN/Cr of 17/1.9 -Renal consult pending -Continue IVF 5. Leukocytosis - 6. Retropharyngeal/prevertebral edema on MRI -Pt reports Hx of pharyngitis a few weeks ago -MRI does not correlate to active infection -Will order soft tissue cervical collar 7. L LE swelling -Duplex US pending to rule out DVT 8. L foot fluid collection -Seen by Dr. 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 abscess, rule out osteomyelitis -BL foot xrays performed showing changes suspicious for osteomyelitis in the L foot -US of the collection pending 9. Diabetes -Pt home meds include Levemir 30U BID with Novolog SSI -BGM -Continue home regimen 10. FEN -Continue IVF 11. DVT ppx 12. Dispo Edvin Ken, MS3
--- NOTE | 2016-08-20 14:50 | PN ---
Teaching Attending Note Name of Resident: Cyrus Cabrera ATTENDING PHYSICIAN STATEMENT I saw and evaluated the patient. I reviewed the resident's note and discussed the case with the resident. I agree with the resident's findings and plan as documented. SUBJECTIVE:60yo M c/o syncope yesterday while in the elevator. states his legs felt weak and then the next thing he recalls is being in the stretcher loaded into the ambulance. states he had no previous symptoms other than his legs feeling heavier the past few days. currently c/o R eye pain which he struck his head per report. states he has had decreased appetite over the past 2 weeks with 10 pound weight loss during this time. had colonoscopy 5 months ago done for routine which they found some polyps but does not know pathology report. also had EGD after which he reports as normal. was told his kidneys were not functioning 100% but was not told to see a neprhologist. never had blood transfusion in the past. denies CP, SOB,fever, chills, N/V/C/D, numbness/ tingling in his extremities, dysuria, hematuria, BRBPR, melena, no pathological fractures OBJECTIVE: Last Vital Signs Temp Pulse Resp BP Pulse Ox 98.3 F 78 18 119/77 97 08/20/16 13:56 08/20/16 13:56 08/20/16 13:56 08/20/16 13:56 08/20/16 13:56 General NAD HEENT PERRL, medial subcongenctiva bleed, EOMI, swollen R orbit. bandage applied superiorly no active bleeding CV S1 S2 RRR no murmur/rub/gallop Lungs CTA B/L anteriorly Abdomen soft NT/ND Extremities 3+ pitting edema LLE +calf tenderness +2 cm flucuant bullae on medial malleoulus transmetatarsal amputation. RLE 1+pitting edema multiple digit amputation. unable to palpate pulses. B/L LE warm good coloration ASSESSMENT AND PLAN: 60yo M with PMH HTH, DM, Peripheral neuropathy, OM of L foot s/p amputation presented to the ER and was admitted for further evaluation of their emergent condition 1. Symptomatic anemia- concern for MDS vs malignancy. with assoc neutrophilic leukocytosis and thrombophilia. s/p 2 unit PRBC will order additional 2 units of blood. trend H/H. no signs of active bleeding and had recent GI workup negative per pt (will call Dr Etienne office to obtain copies of reports). iron studies pending. retic count low. hematology consulted. will possible require bone marrow bx. will d/w with them about imaging 2. Hyperkalemia- likely in setting of FROYLAN. also elevated with blood transfusion. will call neprhology as if does not improve may need to consider for HD. s/p kayexylate given twice and treated iwth insulin and D50 3. Acute on CKD- call pMD for baseline Cr function. possible due to hypoperfusion. will d/w renal. 4. hyperphosphatemia- likely due to kidney failure. defer to nephro if phoslo should be started at this time 5. Syncope- likely due to symptomatic anemia. cardiac montoring to r/o arrythmia also in setting of hyperkalemia. s/p mechanical fall. spoke with radiology who sates no ligamentous tear noted but does have some swelling. will place soft collar at this time. official MRI report pending. check echo 6. B/L LE edema- doppler to r/o dvt 7. Fluctuant bullae on L medial malleolus- podiatry consulted 8. DVT ppx- high risk however in setting of low hgb and LE edema will not order prophylaxis at this time. will need PT eval prior to discharge
--- NOTE | 2016-08-20 16:45 | PN ---
Physical Exam: SUBJECTIVE: Patient seen and examined c/o of head and neck pain. Bilateral leg swelling. Denies chest pain, sob, blurry vision, weakness. OBJECTIVE: Vital Signs Period Temp Pulse Resp BP Sys/Gutierrez Pulse Ox Last 24 Hr 97.6 F-98.3 F 68-79 10-20 102-138/58-88 97-100 GENERAL: The patient is awake, alert, and fully oriented, in no acute distress. HEAD: Normal with no signs of trauma. laceration over right eyebrow EYES: PERRL, extraocular movements intact, sclera anicteric, conjunctiva clear. No ptosis. NECK: Trachea midline, full range of motion, supple. LUNGS: Breath sounds equal, clear to auscultation bilaterally, no wheezes, no crackles, no accessory muscle use. HEART: Regular rate and rhythm, S1, S2 without murmur, rub or gallop. ABDOMEN: Soft, nontender, nondistended, normoactive bowel sounds, no guarding, no rebound, no hepatosplenomegaly, no masses. EXTREMITIES: 2+ pulses, warm, well-perfused, b/l 2+ edema NEUROLOGICAL: Cranial nerves II through XII grossly intact. Normal speech, gait not observed. PSYCH: Normal mood, normal affect. SKIN: Warm, dry, normal turgor, no rashes or lesions noted Laboratory Results - last 24 hr 08/19/16 08/20/16 08/20/16 23:37 03:30 03:30 WBC RBC Hgb Hct MCV MCHC RDW Plt Count MPV Neutrophils % Lymphocytes % Monocytes % Eosinophils % Basophils % Retic Count INR Sodium Potassium Chloride Carbon Dioxide Anion Gap BUN Creatinine Creat Clearance w eGFR POC Glucometer Random Glucose Calcium Phosphorus Total Bilirubin AST ALT Alkaline Phosphatase Total Protein Albumin Urine Color Yellow Urine Appearance Slcloudy Urine pH 5.0 Ur Specific [place] 1.016 Urine Protein 2+ H Urine Glucose (UA) Negative Urine Ketones Negative Urine Blood Negative Urine Nitrite Negative Urine Bilirubin Negative Urine Urobilinogen Negative Ur Leukocyte Esterase Trace H Urine RBC 11 Urine WBC 10 Ur Epithelial Cells Rare Urine Bacteria Rare Hyaline Casts 11 Urine Mucus Rare Opiates Screen Positive Methadone Screen Negative Barbiturate Screen Negative Phencyclidine Screen Negative Ur Amphetamines Screen Negative MDMA (Ecstasy) Screen Negative Benzodiazepines Screen Negative Cocaine Screen Negative U Marijuana (THC) Screen Negative Blood Type B POSITIVE Antibody Screen Negative Crossmatch See Detail 08/20/16 08/20/16 08/20/16 06:15 06:15 06:15 WBC 23.1 H RBC 2.40 L D Hgb 5.3 L* D Hct 16.7 L D MCV 69.6 L MCHC 31.9 L RDW 27.2 H Plt Count 579 H MPV 6.8 L Neutrophils % 87.0 H Lymphocytes % 4.5 L D Monocytes % 8.2 D Eosinophils % 0.1 D Basophils % 0.2 Retic Count Cancelled INR 1.53 H Sodium 133 L Potassium 6.3 H* Chloride 105 Carbon Dioxide 20 L Anion Gap 8 BUN 43 H Creatinine 2.7 H Creat Clearance w eGFR 24.23 POC Glucometer Random Glucose 162 H D Calcium 8.7 Phosphorus 6.8 H D Total Bilirubin 0.5 D AST 13 L ALT 8 L Alkaline Phosphatase 145 H Total Protein 7.0 Albumin 1.6 L Urine Color Urine Appearance Urine pH Ur Specific [place] Urine Protein Urine Glucose (UA) Urine Ketones Urine Blood Urine Nitrite Urine Bilirubin Urine Urobilinogen Ur Leukocyte Esterase Urine RBC Urine WBC Ur Epithelial Cells Urine Bacteria Hyaline Casts Urine Mucus Opiates Screen Methadone Screen Barbiturate Screen Phencyclidine Screen Ur Amphetamines Screen MDMA (Ecstasy) Screen Benzodiazepines Screen Cocaine Screen U Marijuana (THC) Screen Blood Type Antibody Screen Crossmatch 08/20/16 08/20/16 08/20/16 09:00 11:30 11:40 WBC 23.5 H RBC 2.57 L Hgb 5.5 L* Hct 17.9 L MCV 69.8 L MCHC 30.9 L RDW 26.1 H Plt Count 552 H MPV 6.8 L Neutrophils % Lymphocytes % Monocytes % Eosinophils % Basophils % Retic Count INR Sodium 134 L Potassium 5.8 H Chloride 107 Carbon Dioxide 19 L Anion Gap 8 BUN 44 H Creatinine 2.5 H Creat Clearance w eGFR POC Glucometer [id number] Random Glucose 171 H Calcium 8.4 L Phosphorus Total Bilirubin AST ALT Alkaline Phosphatase Total Protein Albumin Urine Color Urine Appearance Urine pH Ur Specific [place] Urine Protein Urine Glucose (UA) Urine Ketones Urine Blood Urine Nitrite Urine Bilirubin Urine Urobilinogen Ur Leukocyte Esterase Urine RBC Urine WBC Ur Epithelial Cells Urine Bacteria Hyaline Casts Urine Mucus Opiates Screen Methadone Screen Barbiturate Screen Phencyclidine Screen Ur Amphetamines Screen MDMA (Ecstasy) Screen Benzodiazepines Screen Cocaine Screen U Marijuana (THC) Screen Blood Type Antibody Screen Crossmatch Active Medications Generic Name Dose Route Start Last Admin Trade Name Freq PRN Reason Stop Dose Admin Albuterol Sulfate 2 puff 08/20/16 00:08 Ventolin Hfa Inhaler - IH Q4H PRN WHEEZING Amlodipine Besylate 10 mg 08/20/16 10:00 08/20/16 10:13 Norvasc - PO 10 mg DAILY IGGY Administration Ascorbic Acid 500 mg 08/20/16 10:00 08/20/16 10:13 Vitamin C - PO 500 mg DAILY IGGY Administration Doxazosin Mesylate 4 mg 08/20/16 10:00 08/20/16 10:12 Cardura - PO 4 mg DAILY IGGY Administration Duloxetine HCl 30 mg 08/20/16 10:00 08/20/16 10:12 Cymbalta - PO 30 mg DAILY IGGY Administration Ferrous Sulfate 325 mg 08/20/16 10:00 08/20/16 10:12 Feosol - PO 325 mg DAILY IGGY Administration Folic Acid 1 mg 08/20/16 10:00 08/20/16 10:12 Folic Acid - PO 1 mg DAILY IGGY Administration Sodium Chloride 1,000 mls @ 75 mls/hr 08/20/16 00:45 08/20/16 07:13 Normal Saline - IV 75 mls/hr ASDIR IGGY Administration Insulin Aspart 1 vial 08/20/16 07:00 08/20/16 11:33 Novolog Vial Sliding Scale - SQ 4 units ACHS IGGY Administration Protocol Insulin Detemir 30 units 08/20/16 07:00 08/20/16 08:21 Levemir Vial SQ 30 units BIDI IGGY Administration Mirtazapine 30 mg 08/20/16 22:00 Remeron - PO HS IGGY Multivitamins 1 each 08/20/16 10:00 08/20/16 10:13 Total B With C - PO 1 each DAILY IGGY Administration Oxycodone/Acetaminophen 1 combo 08/20/16 10:00 08/20/16 13:54 Percocet 5/325 - PO 1 combo QID IGGY Administration Pantoprazole Sodium 20 mg 08/20/16 10:00 08/20/16 10:13 Protonix - PO 20 mg DAILY IGGY Administration Pregabalin 150 mg 08/20/16 06:00 08/20/16 13:55 Lyrica - PO 150 mg TID IGGY Administration Trazodone HCl 300 mg 08/20/16 22:00 Desyrel - PO HS IGGY Valsartan 80 mg 08/20/16 10:00 08/20/16 10:12 Diovan - PO 80 mg DAILY IGGY Administration Zinc Sulfate 220 mg 08/20/16 10:00 08/20/16 10:13 Orazinc - PO 220 mg DAILY IGGY Administration ASSESSMENT/PLAN: FOBT: negative Head, Facial Bones, Cervical Spine CT: no intracranial/extracranial bleeding, no edema, no mass, no evidence of ischemia, + R supraorbital soft tissue swelling with laceration, no facial or spinal Fx MRI C-spine: prevertebral, retropharyngeal fluid collection/edema, likely non- infectious in etiology CXR: no acute pathology A/P: Pt is a 60 yo M with PMHx of DM, HTN, diabetic neuropathy with BL foot amputations, and CKD who presents to the ED s/p syncopal episode from standing position with +LOC and +head trauma. Pt was found to have a Hgb of 3.7 and WBC of 26.1 upon presentation. #Syncope most likely related to anemia -severe iron deficiency vs. hemolytic anemia vs. anemia of chronic disease (CKD ) vs. hematologic disorder (MDS/MM/leukemia) vs. GI loss -s/p 4 U PRBC; with adequate rise in hemoglobin -FOBT negative -Pt reports Hx of colonoscopy in December of 2015 with subsequent Bx of colonic polyps negative. Pt reports nml EGD done around the same time. Both performed by Dr. Etienne -Increased ferritin of 400 and nml LDH. Other iron studies pending -Heme/ID/Gastro consulted 3. Hyperkalemia -Resolving -Given Ca gluconate, Insulin/D50, and kaexylate in ED -Continue to trend 4. Acute on chronic renal failure -DM vs. HTN vs. malignancy vs. nephrotic syndrome -CMP ordered by PCP in 02/2016 showed BUN/Cr of 17/1.9 -Renal consult 5. Leukocytosis -seconary to infection may be from possible osteomyelitis or underlying malignancy 6. Retropharyngeal/prevertebral edema on MRI -Pt reports Hx of pharyngitis a few weeks ago -MRI does not correlate to active infection -Will order soft tissue cervical collar -ENT consulted 7. L LE swelling -Duplex US negative for DVT 8. L foot fluid collection -Seen by Dr. 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 abscess, rule out osteomyelitis -BL foot xrays performed showing changes suspicious for osteomyelitis in the L foot -US of the collection pending 9. Diabetes -Pt home meds include Levemir 30U BID with Novolog SSI -BGM -Continue home regimen FEN: Fluids: NS 75mls/hr Electrolytes:trend Diet: diabetic DVT ppx: scds Disposition: continue work up and management Visit type - Emergency Visit Emergency Visit: Yes ED Registration Date: 08/19/16 Care time: The patient presented to the Emergency Department on the above date and was hospitalized for further evaluation of their emergent condition. - New Patient This patient is new to me today: Yes Date on this admission: 08/21/16 - Critical Care Critical Care patient: Yes Total Critical Care Time (in minutes): 35 Critical Care Statement: The care of this patient involved high complexity decision making to prevent further life threatening deterioration of the patient 's condition and/or to evalute & treat vital organ system(s) failure or risk of failure.
[2016-08-20 18:04] LABS: INR 1.4 (0.82-1.09); PROTHROMBIN TIME (PATIENT) 15.5 SEC (9.98-11.88)
[2016-08-20 18:07] LABS: ACTIVATED PTT 39.5 SECONDS (26.9-34.4)
--- NOTE | 2016-08-20 18:21 | CONSULT ---
Consult - text type - Consultation Consultation Note: Renal Consult for FROYLAN on CKD and Hyperkalemia This is a 60 year old Gentleman with PMhx of CKD (baseline unclear), Hypertension, IDDM, PVD who presented s/p syncopal episode and found to have acute Anemia with Hgb of 3.7 and BUN/Cr of 41/2.7 and K of 6.8. Pt reports not feeling well for 3-4 weeks with poor oral intake. Denies any NSAID use. NO contrast exposure. Denies any dark stools or blood in stool. Denies any bladder outflow problems. No flank pain or kidney stones. No N/V/D. No Rash. PMhx: as above Allergies: NKDA Family Hx: NC Social Hx: No T/A/D ROS: as per HPI Home Meds: Home Medications Medication Instructions Recorded Amlodipine Besylate [Norvasc -] 10 mg PO DAILY 11/07/14 Ascorbate Calcium [Vitamin C] 500 mg PO DAILY 11/07/14 Duloxetine HCl 30 mg PO DAILY 11/07/14 Ferrous Sulfate [Feosol] 325 mg PO DAILY 11/07/14 Folic Acid - 1 mg PO DAILY 11/07/14 Insulin (Levemir) [Levemir Flexpen 30 units SQ BID 11/07/14 -] Insulin Aspart [Novolog Flexpen] 0 unit SQ UTDICT 11/07/14 Trazodone HCl 300 mg PO HS 11/07/14 Vitamin B Complex [Super B Complex] 1 each PO DAILY 11/07/14 Zinc Sulfate 220 mg PO DAILY 11/07/14 Doxazosin Mesylate [Cardura -] 4 mg PO DAILY #30 tablet 11/24/14 Cholecalciferol (Vitamin D3) 50,000 unit PO WEEKLY 12/07/15 [Vitamin D3] Aspirin [ASA -] 81 mg PO DAILY 03/08/16 Hydrochlorothiazide [Hctz -] 25 mg PO DAILY #30 tab MDD 1 08/01/16 Oxycodone HCl/Acetaminophen 1 tab PO QID #120 tablet MDD 4 08/01/16 [Percocet 5-325 mg Tablet] Albuterol Sulfate Inhaler - 2 inh PO Q4H PRN 08/19/16 [Ventolin Hfa Inhaler -] Insulin Glargine,Hum.rec.anlog 15 units SQ BID 08/19/16 [Lantus Solostar PEN (NF)] Metformin HCl [Metformin HCl ER] 500 mg PO BID 08/19/16 Mirtazapine [Remeron -] 30 mg PO HS 08/19/16 Omeprazole 20 mg PO DAILY 08/19/16 Pregabalin [Lyrica -] 150 mg PO TID MDD 2 08/19/16 Valsartan [Diovan] 80 mg PO DAILY 08/19/16 Vital Signs Temperature 97.6 F 08/20/16 14:31 Pulse Rate 69 08/20/16 16:12 Respiratory Rate 18 08/20/16 16:12 Blood Pressure 113/79 08/20/16 16:12 O2 Sat by Pulse Oximetry (%) 97 08/20/16 16:12 Intake & Output 08/17/16 08/18/16 08/19/16 08/20/16 23:59 23:59 23:59 23:59 Intake Total 850 Output Total 500 Balance 350 Weight 211 lb Gen: NAD, awake and alert HEENT: NC/AT, MMM, No JVD CVS: RRR, No M/R Lungs: Dec BS at lung bases, no rales Abd: Tense, denies any tenderness. no overt bladder distension Ext: 1+ edema in LE, Left TMA Neuro: AAOX3, no focal defects CBC, BMP 08/20/16 09:00 08/20/16 11:40 Current Medications Albuterol Sulfate (Ventolin Hfa Inhaler -) 2 puff IH Q4H PRN PRN Reason: WHEEZING Amlodipine Besylate (Norvasc -) 10 mg PO DAILY [facility] Last Admin: 08/20/16 10:13 Dose: 10 mg Ascorbic Acid (Vitamin C -) 500 mg PO DAILY [facility] Last Admin: 08/20/16 10:13 Dose: 500 mg Doxazosin Mesylate (Cardura -) 4 mg PO DAILY [facility] Last Admin: 08/20/16 10:12 Dose: 4 mg Duloxetine HCl (Cymbalta -) 30 mg PO DAILY [facility] Last Admin: 08/20/16 10:12 Dose: 30 mg Ferrous Sulfate (Feosol -) 325 mg PO DAILY [facility] Last Admin: 08/20/16 10:12 Dose: 325 mg Folic Acid (Folic Acid -) 1 mg PO DAILY [facility] Last Admin: 08/20/16 10:12 Dose: 1 mg Sodium Chloride (Normal Saline -) 1,000 mls @ 75 mls/hr IV ASDIR [facility] Last Admin: 08/20/16 07:13 Dose: 75 mls/hr Insulin Aspart (Novolog Vial Sliding Scale -) 1 vial SQ ACHS [facility] PRN Reason: Protocol Last Admin: 08/20/16 11:33 Dose: 4 units Insulin Detemir (Levemir Vial) 30 units SQ BIDI [facility] Last Admin: 08/20/16 08:21 Dose: 30 units Mirtazapine (Remeron -) 30 mg PO HS [facility] Multivitamins (Total B With C -) 1 each PO DAILY [facility] Last Admin: 08/20/16 10:13 Dose: 1 each Oxycodone/Acetaminophen (Percocet 5/325 -) 1 combo PO QID [facility] Last Admin: 08/20/16 13:54 Dose: 1 combo Pantoprazole Sodium (Protonix -) 20 mg PO DAILY [facility] Last Admin: 08/20/16 10:13 Dose: 20 mg Pregabalin (Lyrica -) 150 mg PO TID [facility] Last Admin: 08/20/16 13:55 Dose: 150 mg Trazodone HCl (Desyrel -) 300 mg PO HS [facility] Zinc Sulfate (Orazinc -) 220 mg PO DAILY [facility] Last Admin: 08/20/16 10:13 Dose: 220 mg A/P 60 year old Gentleman with PMhx of CKD (baseline unclear), Hypertension, IDDM, PVD who presented s/p syncopal episode and found to have acute Anemia with Hgb of 3.7 and BUN/Cr of 41/2.7 and K of 6.8. #Hyperkalemia in setting of acute Anemia, renal hypoperfusion and ARB D/C Losartan s/p Kayexlalate, Insulin and dextrose Check K level now ? hemolysis during transfusion low K diet Trend K daily #FROYLAN vs. CKD ? baseline renal function Check UA, UPCR, Renal and bladder US Trend BUN/Cr no acute indication for HOT BLASTER #Acute Anemia GI/Heme consulted transfuse as per primary team #Hypertension holding antihypertensives at this time Trend BP #IDDM Check Hgb A1C insulin as per primary team Thank you Will follow Miguel Jansen DO
--- NOTE | 2016-08-20 18:34 | CONSULT ---
Consultation: REQUESTING PROVIDER: CONSULT REQUEST: We have been asked to medically evaluate this patient for (ICU) . HISTORY OF PRESENT ILLNESS: 60YM with PMH: HTN, DMII on insulin, PAD with multiple amputations, diabetic nephropathy presents to ED via EMS after an episode of syncope that occurred at the assisted living facility. Patient recalls while standing and his back on the wall of elevator falling, does not recall prefall, fall , post fall. Patient reports waking up on stretcher with EMS. + Loc, +Head and neck trauma. patient reports 3-4 week of leathargy, leg . Denies any NSAID use. No contrast exposure. Denies any dark stools or blood in stool. denies any urinary symptoms. The patient denies headache, thunderclap onset headache dizziness, lightheadedness or palpitations. The patient denies prodromal chest pain, chest pain, shortness of breath, fever, chills, cough, visual changes, tongue biting, bowel/bladder incontinence. On presentation Hgb of 3.7, WBC of 26.1, LDH wNL, K of 6.8, transfused 4 untits of blood, loss 32 lb/one year. patient denies history of syncope episode. transfused 2010 for HB ~5. Patient reports endoscopy and colonoscopy last December with [address] Etienne Recent Travel: Denies PAST MEDICAL HISTORY: - HTN, DMII on insulin with multiple amputations, diabetic nephropathy - left foot osteomyelitis PAST SURGICAL HISTORY: - Left foot transmetatarsal amputation, Right foot toe amputation. Social History: Smokin cigarettes a day since 1969 Alcohol: Denies Drugs: Denies Family History: No family history of cancer, blood or bone disorders. Allergies shellfish derived Allergy (Severe, Verified 08/19/16 18:52) "HIVES" SWELLING No Known Drug Allergies Allergy (Verified 08/19/16 18:52) REVIEW OF SYSTEMS: CONSTITUTIONAL: generalized weakness, malaise, loss of appetite, weight change Absent: fever, chills, diaphoresis, HEENT: Absent: rhinorrhea, nasal congestion, throat pain, throat swelling, difficulty swallowing, mouth swelling, ear pain, eye pain, visual changes CARDIOVASCULAR: syncope, Absent: chest pain, palpitations, irregular heart rate, lightheadedness, peripheral edema RESPIRATORY: Absent: cough, shortness of breath, dyspnea with exertion, orthopnea, wheezing, stridor, hemoptysis GASTROINTESTINAL: Absent: abdominal pain, abdominal distension, nausea, vomiting, diarrhea, constipation, melena, hematochezia GENITOURINARY: Absent: dysuria, frequency, urgency, hesitancy, hematuria, flank pain, genital pain MUSCULOSKELETAL: Absent: myalgia, arthralgia, joint swelling, back pain, neck pain SKIN: Absent: rash, itching, pallor HEMATOLOGIC/IMMUNOLOGIC: Absent: easy bleeding, easy bruising, lymphadenopathy, frequent infections ENDOCRINE:unexplained weight loss, Absent: unexplained weight gain, heat intolerance, cold intolerance NEUROLOGIC: Absent: headache, focal weakness or paresthesias, dizziness, unsteady gait, seizure, mental status changes, bladder or bowel incontinence PSYCHIATRIC: Absent: anxiety, depression, suicidal or homicidal ideation, hallucinations. PHYSICAL EXAMINATION Vital Signs - 24 hr 08/20/16 08/20/16 08/20/16 00:47 01:58 02:11 Temperature 97.9 F Pulse Rate [ 69 Apical] Pulse Rate [ 68 Right Radial] Respiratory 20 10 L 14 Rate Blood Pressure 109/68 110/71 [Left Arm] O2 Sat by Pulse 100 97 Oximetry (%) 08/20/16 08/20/16 08/20/16 03:41 04:10 06:41 Temperature 97.6 F 97.6 F 97.7 F Pulse Rate [ Apical] Pulse Rate [ 74 72 68 Right Radial] Respiratory 20 20 20 Rate Blood Pressure 119/58 123/74 134/75 [Left Arm] O2 Sat by Pulse 100 100 97 Oximetry (%) 08/20/16 08/20/16 08/20/16 08:32 10:02 11:54 Temperature 97.8 F 98.2 F Pulse Rate [ 75 77 73 Apical] Pulse Rate [ Right Radial] Respiratory 20 18 18 Rate Blood Pressure 138/88 128/79 123/77 [Left Arm] O2 Sat by Pulse 97 97 97 Oximetry (%) 08/20/16 08/20/16 08/20/16 13:56 14:31 16:12 Temperature 98.3 F 97.6 F Pulse Rate [ 78 79 69 Apical] Pulse Rate [ Right Radial] Respiratory 18 18 18 Rate Blood Pressure 119/77 102/66 113/79 [Left Arm] O2 Sat by Pulse 97 97 97 Oximetry (%) GENERAL: AAOx3 in NAD, sitting comfortably, tolerating dinner. HEAD: R forehead laceration, dressing clean and dry covering sutures, swelling of R periorbital soft tissue, R scleral injection EYES: Pupils equal, round and reactive to light, extraocular movements intact, sclera anicteric, conjunctiva clear. No lid lag. EARS, NOSE, THROAT: Ears normal, nares patent, oropharynx clear without exudates. Moist mucous membranes. NECK: tender cervical spine, limitted range of motion, supple without lymphadenopathy. + JVD. LUNGS: Coarse breath sounds BL. No wheezes, and no crackles. No accessory muscle use. HEART: Regular rate and rhythm, normal S1 and S2, + systolic murmur grade 2 ABDOMEN: Soft, nontender, not distended, normoactive bowel sounds, no guarding, no rebound, no masses. No hepatomegaly or splenomegaly. : Serna in place, draining yellow urine MUSCULOSKELETAL: Normal range of motion at all joints. No bony deformities or tenderness. No CVA tenderness. LOWER EXTREMITIES: LLE 2+ pitting edema +calf tenderness +2 cm flucuant bullae on medial malleoulus transmetatarsal amputation. RLE 1+pitting edema multiple digit amputation. unable to palpate pulses. NEUROLOGICAL: no facial asymmetry, Normal speech. loss of sensations below the knee. PSYCHIATRIC: Cooperative. Good eye contact. Appropriate mood and affect. Laboratory Results - last 24 hr 08/19/16 08/20/16 08/20/16 23:37 03:30 03:30 WBC RBC Hgb Hct MCV MCHC RDW Plt Count MPV Neutrophils % Lymphocytes % Monocytes % Eosinophils % Basophils % Retic Count INR Sodium Potassium Chloride Carbon Dioxide Anion Gap BUN Creatinine Creat Clearance w eGFR POC Glucometer Random Glucose Calcium Phosphorus Total Bilirubin AST ALT Alkaline Phosphatase Total Protein Albumin Urine Color Yellow Urine Appearance Slcloudy Urine pH 5.0 Ur Specific [place] 1.016 Urine Protein 2+ H Urine Glucose (UA) Negative Urine Ketones Negative Urine Blood Negative Urine Nitrite Negative Urine Bilirubin Negative Urine Urobilinogen Negative Ur Leukocyte Esterase Trace H Urine RBC 11 Urine WBC 10 Ur Epithelial Cells Rare Urine Bacteria Rare Hyaline Casts 11 Urine Mucus Rare Opiates Screen Positive Methadone Screen Negative Barbiturate Screen Negative Phencyclidine Screen Negative Ur Amphetamines Screen Negative MDMA (Ecstasy) Screen Negative Benzodiazepines Screen Negative Cocaine Screen Negative U Marijuana (THC) Screen Negative Blood Type B POSITIVE Antibody Screen Negative Crossmatch See Detail 08/20/16 08/20/16 08/20/16 06:15 06:15 06:15 WBC 23.1 H RBC 2.40 L D Hgb 5.3 L* D Hct 16.7 L D MCV 69.6 L MCHC 31.9 L RDW 27.2 H Plt Count 579 H MPV 6.8 L Neutrophils % 87.0 H Lymphocytes % 4.5 L D Monocytes % 8.2 D Eosinophils % 0.1 D Basophils % 0.2 Retic Count Cancelled INR 1.53 H Sodium 133 L Potassium 6.3 H* Chloride 105 Carbon Dioxide 20 L Anion Gap 8 BUN 43 H Creatinine 2.7 H Creat Clearance w eGFR 24.23 POC Glucometer Random Glucose 162 H D Calcium 8.7 Phosphorus 6.8 H D Total Bilirubin 0.5 D AST 13 L ALT 8 L Alkaline Phosphatase 145 H Total Protein 7.0 Albumin 1.6 L Urine Color Urine Appearance Urine pH Ur Specific [place] Urine Protein Urine Glucose (UA) Urine Ketones Urine Blood Urine Nitrite Urine Bilirubin Urine Urobilinogen Ur Leukocyte Esterase Urine RBC Urine WBC Ur Epithelial Cells Urine Bacteria Hyaline Casts Urine Mucus Opiates Screen Methadone Screen Barbiturate Screen Phencyclidine Screen Ur Amphetamines Screen MDMA (Ecstasy) Screen Benzodiazepines Screen Cocaine Screen U Marijuana (THC) Screen Blood Type Antibody Screen Crossmatch 08/20/16 08/20/16 08/20/16 09:00 11:30 11:40 WBC 23.5 H RBC 2.57 L Hgb 5.5 L* Hct 17.9 L MCV 69.8 L MCHC 30.9 L RDW 26.1 H Plt Count 552 H MPV 6.8 L Neutrophils % Lymphocytes % Monocytes % Eosinophils % Basophils % Retic Count INR Sodium 134 L Potassium 5.8 H Chloride 107 Carbon Dioxide 19 L Anion Gap 8 BUN 44 H Creatinine 2.5 H Creat Clearance w eGFR POC Glucometer [phone] Random Glucose 171 H Calcium 8.4 L Phosphorus Total Bilirubin AST ALT Alkaline Phosphatase Total Protein Albumin Urine Color Urine Appearance Urine pH Ur Specific [place] Urine Protein Urine Glucose (UA) Urine Ketones Urine Blood Urine Nitrite Urine Bilirubin Urine Urobilinogen Ur Leukocyte Esterase Urine RBC Urine WBC Ur Epithelial Cells Urine Bacteria Hyaline Casts Urine Mucus Opiates Screen Methadone Screen Barbiturate Screen Phencyclidine Screen Ur Amphetamines Screen MDMA (Ecstasy) Screen Benzodiazepines Screen Cocaine Screen U Marijuana (THC) Screen Blood Type Antibody Screen Crossmatch Active Medications Generic Name Dose Route Start Last Admin Trade Name Freq PRN Reason Stop Dose Admin Albuterol Sulfate 2 puff 08/20/16 00:08 Ventolin Hfa Inhaler - IH Q4H PRN WHEEZING Amlodipine Besylate 10 mg 08/20/16 10:00 08/20/16 10:13 Norvasc - PO 10 mg DAILY [facility] Administration Ascorbic Acid 500 mg 08/20/16 10:00 08/20/16 10:13 Vitamin C - PO 500 mg DAILY [facility]GGY Administration Doxazosin Mesylate 4 mg 08/20/16 10:00 08/20/16 10:12 Cardura - PO 4 mg DAILY [facility]GG[facility] Administration Duloxetine HCl 30 mg 08/20/16 10:00 08/20/16 10:12 Cymbalta - PO 30 mg DAILY [facility]GG[facility] Administration Ferrous Sulfate 325 mg 08/20/16 10:00 08/20/16 10:12 Feosol - PO 325 mg DAILY IGG[facility] Administration Folic Acid 1 mg 08/20/16 10:00 08/20/16 10:12 Folic Acid - PO 1 mg DAILY [facility] Administration Sodium Chloride 1,000 mls @ 75 mls/hr 08/20/16 00:45 08/20/16 07:13 Normal Saline - IV 75 mls/hr ASDIR [facility] Administration Insulin Aspart 1 vial 08/20/16 07:00 08/20/16 11:33 Novolog Vial Sliding Scale - SQ 4 units ACHS IGG[facility] Administration Protocol Insulin Detemir 30 units 08/20/16 07:00 08/20/16 08:21 Levemir Vial SQ 30 units BIDI [facility] Administration Mirtazapine 30 mg 08/20/16 22:00 Remeron - PO HS [facility] Multivitamins 1 each 08/20/16 10:00 08/20/16 10:13 Total B With C - PO 1 each DAILY [facility] Administration Oxycodone/Acetaminophen 1 combo 08/20/16 10:00 08/20/16 13:54 Percocet 5/325 - PO 1 combo QID [facility] Administration Pantoprazole Sodium 20 mg 08/20/16 10:00 08/20/16 10:13 Protonix - PO 20 mg DAILY [facility] Administration Pregabalin 150 mg 08/20/16 06:00 08/20/16 13:55 Lyrica - PO 150 mg TID [facility] Administration Trazodone HCl 300 mg 08/20/16 22:00 Desyrel - PO HS [facility] Valsartan 80 mg 08/20/16 10:00 08/20/16 10:12 Diovan - PO 80 mg DAILY [facility] Administration Zinc Sulfate 220 mg 08/20/16 10:00 08/20/16 10:13 Orazinc - PO 220 mg DAILY [facility] Administration FOBT: negative Head, Facial Bones, Cervical Spine CT: no intracranial/extracranial bleeding, no edema, no mass, no evidence of ischemia, + R supraorbital soft tissue swelling with laceration, no facial or spinal Fx MRI C-spine: prevertebral, retropharyngeal fluid collection/edema, likely non- infectious in etiology CXR: no acute pathology Prevertebral, retropharyngeal fluid collection, edema which follows the signal intensity of the CSF on T2, STIR images, likely of noninfectious etiology (no restrictive changes are seen on diffusion-weighted images). The spinal canal is normal in diameter and accommodates normal appearing spinal cord that shows intrinsically normal signal. Flow-void is observed in the vertebral, carotid arteries. Patent internal jugular veins. ASSESSMENT/PLAN: 60YM with PMH: HTN, DMII on insulin, PAD with multiple amputations, diabetic nephropathy presents to ED via EMS after an episode of syncope that occurred at the assisted living facility. +LOC, +head and neck Injury, On presentation Hgb of 3.7, WBC of 26.1, LDH wNL, K of 6.8, transfused 4 untits of blood, loss 32 lb /one year. Severe Anemia: Microcytic, hypochromic anemia:GI/Hem/Kidney source- anemia of chronic disease v Fe deficiency v hemolytic anemia vs. hematologic disorder ( MDS/MM/leukemia) vs. GI loss - endoscope and colonoscopy 2015 . GI consulted. lorraine loss and anaemia concerned for malignancy. OBT negative. -2 units of PRBC administered, two more ordered. - repeat cbc, BMp -repeat EKG Hypercalcemia: Corrected Ca++: 10.8 possible secondary to hypovolemia volume resuscitation Syncope -Most likely 2/2 Sx anemia -Workup and treat the underlying anemia Hyperkalemia: improving with Ca gluconate, Insulin/D50, and kaexylate. repeat bmp D/C Losartan low K diet Acute on chronic renal failure: unkown base line( BUN/Cr /1.9 -02/2016) most likely secondary long standing HTN, DM, and prerenal azotemia. -Renal consult pending -Continue IVF -Check UA, -UPCR, -Renal and bladder US -Trend BUN/Cr Hyperphosphatemia- likely due to kidney failure. defer to nephro if phoslo should be started at this time Prevertebral, retropharyngeal fluid collection, edema likely of noninfectious etiology. The spinal canal is normal in diameter and accommodates normal appearing spinal cord that shows intrinsically normal signal. -ENT consulted L LE swelling -Duplex US pending to rule out DVT L foot fluid collection; patient refused treatment from Dr. palacios. -2/2 to seroma vs. abscess, rule out osteomyelitis -BL foot xrays performed showing changes suspicious for osteomyelitis in the L foot -US of the collection pending -ID consulted IDDM -Levemir 30U BID with Novolog SSI -BGM -Check Hgb A1C Hypertension-holding antihypertensives at this time, will consider restarting once hypodermically stable. monitor BP FEN -Continue IVF - low K diet -replete electrolyte as needed DVT prophylaxis-- SCDS, no anticogulat at this time inl ight of hemostabilty. GI prophylaxis- protonix Dispo: admit into ICU Dispo: We will continue to follow the patient. Thank you for this consultative opportunity. Visit type - Emergency Visit Emergency Visit: Yes ED Registration Date: 08/19/16 Care time: The patient presented to the Emergency Department on the above date and was hospitalized for further evaluation of their emergent condition. - New Patient This patient is new to me today: Yes Date on this admission: 08/19/16 - Critical Care Critical Care patient: Yes Total Critical Care Time (in minutes): 42 Critical Care Statement: The care of this patient involved high complexity decision making to prevent further life threatening deterioration of the patient 's condition and/or to evalute & treat vital organ system(s) failure or risk of failure.
[2016-08-20 19:21] LABS: MCH 22.4 pg (25.7-33.7); MCHC 31.6 g/dl (32.0-35.9); MEAN CELL VOLUME 70.9 fl (80-96); MEAN PLT VOLUME 6.9 fl (7.5-11.1); PLATELET COUNT 648 K/MM3 (134-434); RDW 25.8 % (11.9-15.9); WHITE BLOOD COUNT 22.6 K/mm3 (4.0-10.0)
[2016-08-20 20:01] LABS: CALCIUM 8.9 mg/dL (8.5-10.1); COCKROFT - GAULT 42.53; CREATININE 2.5 mg/dL (0.7-1.3)
[2016-08-20 20:21] LABS: ANISOCYTOSIS 3+; HYPOCHROMIA 2+; PLATELET ESTIMATE INCREASED (NORMAL); POIKILOCYTOSIS 1+; POLYCHROMASIA 1+
[2016-08-20 20:22] LABS: MICROCYTOSIS 1+; TARGET CELLS 3+
--- NOTE | 2016-08-20 20:41 | CON.GI ---
Consult Consult Specialty:: GI Referred by:: Hospitalist Reason for Consultation:: Anemia - History of Present Illness Chief Complaint: Weakness, fatigue, syncope History of Present Illness: 60M with h/o poorly controlled DM in the past, PVD s/p L foot amputation, HTN, CKD, neuropathy, noted to have syncopal episode at assisted living facility and brought to ER where he was found to have a Hgb of 3.7. He states he has been feeling poorly for the past several weeks, with fatigue, weight loss. He is a patient of [facility] and was seen as an outpatient. He had EGD and colonoscopy in Dec, 2015. Will review reports in office. He was told to return this month and had an appt before this event occurred. - History Source History Provided By: Patient, Medical Record Limitations to Obtaining History: No Limitations - Past Medical History [employer] PSYCHOLOGIST: Yes: Peripheral Neuropathy Cardio/Vascular: Yes: HTN Gastrointestinal: Yes: GERD Psych: Yes: Depression Musculoskeletal: Yes: Other (chronic pain) Rheumatology: Yes: Other (history of osteomyletis) Endocrine: Yes: Diabetes Mellitus - Past Surgical History Past Surgical History: Yes: Amputation (transmetatarsal of Left foot) - Alcohol/Substance Use Hx Alcohol Use: No Number of Drinks Daily: 2 (weekends) - Smoking History Smoking history: Never smoked Have you smoked in the past 12 months: No Aproximately how many cigarettes per day: 0 - Social History Usual Living Arrangement: Senior Care ADL: Support Services History of Recent Travel: No Home Medications - Allergies Allergies/Adverse Reactions: Allergies Allergy/AdvReac Type Severity Reaction Status Date / Time shellfish derived Allergy Severe "HIVES" Verified 08/19/16 18:52 No Known Drug Allergies Allergy Verified 08/19/16 18:52 - Home Medications Home Medications: Ambulatory Orders Amlodipine Besylate [Norvasc -] 10 mg PO DAILY 11/07/14 Ascorbate Calcium [Vitamin C] 500 mg PO DAILY 11/07/14 Duloxetine HCl 30 mg PO DAILY 11/07/14 Ferrous Sulfate [Feosol] 325 mg PO DAILY 11/07/14 Folic Acid - 1 mg PO DAILY 11/07/14 Insulin (Levemir) [Levemir Flexpen -] 30 units SQ BID 11/07/14 Insulin Aspart [Novolog Flexpen] 0 unit SQ UTDICT 11/07/14 Trazodone HCl 300 mg PO HS 11/07/14 Vitamin B Complex [Super B Complex] 1 each PO DAILY 11/07/14 Zinc Sulfate 220 mg PO DAILY 11/07/14 Doxazosin Mesylate [Cardura -] 4 mg PO DAILY #30 tablet 11/24/14 Cholecalciferol (Vitamin D3) [Vitamin D3] 50,000 unit PO WEEKLY 12/07/15 Aspirin [ASA -] 81 mg PO DAILY 03/08/16 Hydrochlorothiazide [Hctz -] 25 mg PO DAILY #30 tab MDD 1 08/01/16 Oxycodone HCl/Acetaminophen [Percocet 5-325 mg Tablet] 1 tab PO QID #120 tablet MDD 4 08/01/16 Albuterol Sulfate Inhaler - [Ventolin Hfa Inhaler -] 2 inh PO Q4H PRN 08/19/16 Insulin Glargine,Hum.rec.anlog [Lantus Solostar PEN (NF)] 15 units SQ BID Metformin HCl [Metformin HCl ER] 500 mg PO BID 08/19/16 Mirtazapine [Remeron -] 30 mg PO HS 08/19/16 Omeprazole 20 mg PO DAILY 08/19/16 Pregabalin [Lyrica -] 150 mg PO TID MDD 2 08/19/16 Valsartan [Diovan] 80 mg PO DAILY 08/19/16 Family Disease History - Family Disease History Family Disease History: Diabetes: Mother Physical Exam-GI Vital Signs: Vital Signs Temperature 97.2 F L 08/20/16 17:00 Pulse Rate 80 08/20/16 18:00 Respiratory Rate 18 08/20/16 19:43 Blood Pressure 135/86 08/20/16 18:00 O2 Sat by Pulse Oximetry (%) 97 08/20/16 19:43 Constitutional: Yes: Mild Distress HENT: Yes: Normocephalic Neck: Yes: Supple Cardiovascular: Yes: Regular Rate and Rhythm Respiratory: Yes: CTA Bilaterally Gastrointestinal Inspection: Yes: Distention ...Auscultate: Yes: Normoactive Bowel Sounds ...Palpate: Yes: Firm/Rigid. No: Tenderness Labs: CBC, BMP 08/20/16 18:15 08/20/16 18:15 INR, PTT INR 1.40 (0.82-1.09) H 08/20/16 17:10 Fibrinogen 355.0 mg/dL (238-498) 08/20/16 17:10 Imaging - Results MRI: Report Reviewed (Retropharyngeal fluid collection which is not restrictive , bone marrow findings suggesting hematologic malignancy.) Assessment/Plan Called for anemia. No evidence of recent GI bleeding. Currently guaiac negative. CBC differential findings and MRI bone marrow finding suggest possible underlying malignancy Would check for TB and HIV. Recent procedures done-don't expect any new information to be gained by repeating them. Will review in office tomorrow Heme/onc consult called. Transfuse to maintain Hgb of 7-8
--- NOTE | 2016-08-20 21:09 | CONSULT ---
Consult Consult Specialty:: Pulm/CCM Reason for Consultation:: anemia, syncope - History of Present Illness Chief Complaint: weakness, LOC History of Present Illness: 60yo man HTN, CKD (last Scr 1.3-1.5 2014), IDDM (poorly controlled), h/o osteomyelitis, PVD s/p left foot amputation, neuropathy who had syncopal episode w/ LOC presented to ED found to have severe anemia (hgb 3.7). In the ED he stated he had been feeling poorly for the last several weeks with weight loss (30lb in last year). He was noted to have a 2.5 cm y shaped laceration to the right eyebrow. Head and neck CT done w/o evidence of acute pathology or fracture. He was transfused PRBC x4. Labs notable for FROYLAN (SCr/BUN: 2.8/41) and hyperkalemia (6.8) treated medically with improvement (5.7). WBC: 26. Patient transferred to ICU. He is hemodynamically stable BP 150/90. On exam he has a large draining abscess over the left malleolus. ABX started for coverage: zosyn/ vanco. Denies sick prodrome/PEREZ/CP/n/v/melena/hematuria - History Source History Provided By: Patient, Medical Record - Past Medical History TRAINMASTER: Yes: Peripheral Neuropathy Cardio/Vascular: Yes: HTN Gastrointestinal: Yes: GERD Psych: Yes: Depression Musculoskeletal: Yes: Other (chronic pain) Rheumatology: Yes: Other (history of osteomyletis) Endocrine: Yes: Diabetes Mellitus - Past Surgical History Past Surgical History: Yes: Amputation (transmetatarsal of Left foot) - Alcohol/Substance Use Hx Alcohol Use: No Number of Drinks Daily: 2 (weekends) - Smoking History Smoking history: Never smoked Have you smoked in the past 12 months: No Aproximately how many cigarettes per day: 0 - Social History Usual Living Arrangement: Jail ADL: Support Services History of Recent Travel: No Home Medications - Allergies Allergies/Adverse Reactions: Allergies Allergy/AdvReac Type Severity Reaction Status Date / Time shellfish derived Allergy Severe "HIVES" Verified 08/19/16 18:52 No Known Drug Allergies Allergy Verified 08/19/16 18:52 - Home Medications Home Medications: Ambulatory Orders Amlodipine Besylate [Norvasc -] 10 mg PO DAILY 11/07/14 Ascorbate Calcium [Vitamin C] 500 mg PO DAILY 11/07/14 Duloxetine HCl 30 mg PO DAILY 11/07/14 Ferrous Sulfate [Feosol] 325 mg PO DAILY 11/07/14 Folic Acid - 1 mg PO DAILY 11/07/14 Insulin (Levemir) [Levemir Flexpen -] 30 units SQ BID 11/07/14 Insulin Aspart [Novolog Flexpen] 0 unit SQ UTDICT 11/07/14 Trazodone HCl 300 mg PO HS 11/07/14 Vitamin B Complex [Super B Complex] 1 each PO DAILY 11/07/14 Zinc Sulfate 220 mg PO DAILY 11/07/14 Doxazosin Mesylate [Cardura -] 4 mg PO DAILY #30 tablet 11/24/14 Cholecalciferol (Vitamin D3) [Vitamin D3] 50,000 unit PO WEEKLY 12/07/15 Aspirin [ASA -] 81 mg PO DAILY 03/08/16 Hydrochlorothiazide [Hctz -] 25 mg PO DAILY #30 tab MDD 1 08/01/16 Oxycodone HCl/Acetaminophen [Percocet 5-325 mg Tablet] 1 tab PO QID #120 tablet MDD 4 08/01/16 Albuterol Sulfate Inhaler - [Ventolin Hfa Inhaler -] 2 inh PO Q4H PRN 08/19/16 Insulin Glargine,Hum.rec.anlog [Lantus Solostar PEN (NF)] 15 units SQ BID Metformin HCl [Metformin HCl ER] 500 mg PO BID 08/19/16 Mirtazapine [Remeron -] 30 mg PO HS 08/19/16 Omeprazole 20 mg PO DAILY 08/19/16 Pregabalin [Lyrica -] 150 mg PO TID MDD 2 08/19/16 Valsartan [Diovan] 80 mg PO DAILY 08/19/16 Family Disease History - Family Disease History Family History: Unremarkable Family Disease History: Diabetes: Mother Review of Systems - Review of Systems Constitutional: reports: Lethargy, Unintentional Wgt. Loss Cardiovascular: reports: Edema, Shortness of Breath Respiratory: reports: Exercise Intolerance, SOB Musculoskeletal: reports: Extremity Pain Integumentary: reports: Erythema Physical Exam Vital Signs: Vital Signs Temperature 97.2 F L 08/20/16 17:00 Pulse Rate 80 08/20/16 18:00 Respiratory Rate 18 08/20/16 19:43 Blood Pressure 135/86 08/20/16 18:00 O2 Sat by Pulse Oximetry (%) 97 08/20/16 19:43 Current Medications Albuterol Sulfate (Ventolin Hfa Inhaler -) 2 puff IH Q4H PRN PRN Reason: WHEEZING Amlodipine Besylate (Norvasc -) 10 mg PO DAILY [facility] Last Admin: 08/20/16 10:13 Dose: 10 mg Ascorbic Acid (Vitamin C -) 500 mg PO DAILY [facility] Last Admin: 08/20/16 10:13 Dose: 500 mg Doxazosin Mesylate (Cardura -) 4 mg PO DAILY [facility] Last Admin: 08/20/16 10:12 Dose: 4 mg Duloxetine HCl (Cymbalta -) 30 mg PO DAILY [facility] Last Admin: 08/20/16 10:12 Dose: 30 mg Ferrous Sulfate (Feosol -) 325 mg PO DAILY [facility] Last Admin: 08/20/16 10:12 Dose: 325 mg Folic Acid (Folic Acid -) 1 mg PO DAILY [facility] Last Admin: 08/20/16 10:12 Dose: 1 mg Sodium Chloride (Normal Saline -) 1,000 mls @ 75 mls/hr IV ASDIR [facility] Last Admin: 08/20/16 07:13 Dose: 75 mls/hr Vancomycin HCl 1,500 mg/ (Dextrose) 500 mls @ 250 mls/hr IVPB ONCE ONE PRN Reason: Protocol Stop: 08/20/16 23:50 Last Admin: 08/20/16 22:10 Dose: 250 mls/hr Insulin Aspart (Novolog Vial Sliding Scale -) 1 vial SQ ACHS [facility] PRN Reason: Protocol Last Admin: 08/20/16 19:26 Dose: Not Given Insulin Detemir (Levemir Vial) 30 units SQ BIDI [facility] Last Admin: 08/20/16 08:21 Dose: 30 units Mirtazapine (Remeron -) 30 mg PO HS [facility] Multivitamins (Total B With C -) 1 each PO DAILY [facility] Last Admin: 08/20/16 10:13 Dose: 1 each Oxycodone/Acetaminophen (Percocet 5/325 -) 1 combo PO QID [facility] Last Admin: 08/20/16 19:28 Dose: Not Given Pantoprazole Sodium (Protonix -) 20 mg PO DAILY [facility] Last Admin: 08/20/16 10:13 Dose: 20 mg Piperacillin Sod/Tazobactam Sod (Zosyn 3.375gm Ivpb (Pre-Docked)) 3.375 gm IVPB Q8H-IV [facility] PRN Reason: Protocol Pregabalin (Lyrica -) 150 mg PO TID [facility] Last Admin: 08/20/16 13:55 Dose: 150 mg Trazodone HCl (Desyrel -) 300 mg PO HS [facility] Zinc Sulfate (Orazinc -) 220 mg PO DAILY [facility] Last Admin: 08/20/16 10:13 Dose: 220 mg Eyes: Yes: EOM Intact Neck: Yes: Trachea Midline Cardiovascular: Yes: Regular Rate and Rhythm Respiratory: Yes: CTA Bilaterally Gastrointestinal: Yes: Normal Bowel Sounds, Soft Extremities: Yes: Other (L TMA healed with no erythema, warmth, drainage. R great toe amp healed, with no erythema, warmth, drainage. BL pitting edema (R up to mid tibia, L up to femur). L leg swollen 2x > R leg) Edema: LLE: 3+, RLE: 3+ Neurological: Yes: Alert, Oriented Labs: CBCD WBC 22.6 K/mm3 (4.0-10.0) H 08/20/16 18:15 RBC 3.30 M/mm3 (4.00-5.60) L D 08/20/16 18:15 Hgb 7.4 GM/dL (11.7-16.9) L D 08/20/16 18:15 Hct 23.4 % (35.4-49) L D 08/20/16 18:15 MCV 70.9 fl (80-96) L 08/20/16 18:15 MCHC 31.6 g/dl (32.0-35.9) L 08/20/16 18:15 RDW 25.8 % (11.9-15.9) H 08/20/16 18:15 Plt Count 648 K/MM3 (134-434) H 08/20/16 18:15 MPV 6.9 fl (7.5-11.1) L 08/20/16 18:15 CMP Sodium 136 mmol/L (136-145) 08/20/16 18:15 Potassium 5.7 mmol/L (3.5-5.1) H 08/20/16 18:15 Chloride 107 mmol/L (98-107) 08/20/16 18:15 Carbon Dioxide 20 mmol/L (21-32) L 08/20/16 18:15 Anion Gap 9 (8-16) 08/20/16 18:15 BUN 44 mg/dL (7-18) H 08/20/16 18:15 Creatinine 2.5 mg/dL (0.7-1.3) H 08/20/16 18:15 Creat Clearance w eGFR 24.23 (>60) 08/20/16 06:15 Random Glucose 50 mg/dL (74-106) L D 08/20/16 18:15 Calcium 8.9 mg/dL (8.5-10.1) 08/20/16 18:15 Total Bilirubin 0.5 mg/dL (0.2-1.0) D 08/20/16 06:15 AST 13 U/L (15-37) L 08/20/16 06:15 ALT 8 U/L (12-78) L 08/20/16 06:15 Alkaline Phosphatase 145 U/L (45-117) H 08/20/16 06:15 Total Protein 7.0 g/dl (6.4-8.2) 08/20/16 06:15 Albumin 1.6 g/dl (3.4-5.0) L 08/20/16 06:15 CARDIAC ENZYMES Creatine Kinase 141 IU/L (39-308) 08/19/16 20:40 Troponin I < 0.02 ng/ml (0.00-0.05) 08/19/16 20:40 Imaging - Results Chest X-ray: Report Reviewed, Image Reviewed Cat Scan: Report Reviewed, Image Reviewed Problem List - Problems (1) Hyperkalemia Code(s): E87.5 - HYPERKALEMIA (2) Severe anemia Code(s): D64.9 - ANEMIA, UNSPECIFIED (3) Edema of both legs Code(s): R60.0 - LOCALIZED EDEMA (4) Osteoarthritis Code(s): M19.90 - UNSPECIFIED OSTEOARTHRITIS, UNSPECIFIED SITE (5) 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 Code(s): E11.9 - TYPE 2 DIABETES MELLITUS WITHOUT COMPLICATIONS (6) Foot infection Code(s): L08.9 - LOCAL INFECTION OF THE SKIN AND SUBCUTANEOUS TISSUE, UNSP (7) FROYLAN (acute kidney injury) Code(s): N17.9 - ACUTE KIDNEY FAILURE, UNSPECIFIED Assessment/Plan 60yo man with HTN, CKD, IDM h/o osteomyelitis, PVD s/p left foot amputation presented with syncope w/ fall w/ LOC head laceration (NCHCT neg)found to have severe anemia of unclear etiology: ACD, renal failure, bleed, malignancy ( weight loss), less likely acute hemolysis given normal bilis. Leukocytosis c/f left foot abscess +/- osteomyelitis, FROYLAN likely prerenal but possible ATN r/t medication losartan -ABX now for broad GN and MRSA coverage -ID consult in AM -surgical consult for LE abscess -consider MRI LE to evaluate for osteomyelitis -renal dose all medications -hematology w/u for anemia -cont insulin for tight glucose control -DVT prophylaxis If hgb stable can leave ICU in AM Roxana JOHNOSN Pulm/CCM CCT:35m
[2016-08-20] MEDS ORDERED: MIRTAZAPINE 15 MG TABLET (FP) ONE ×2 (21:18)
[2016-08-20] MEDS ORDERED: VANCOMYCIN 1,500 MG in DEXTROSE 5%-WATER - 500 ML IVPB ONE (21:51)
[2016-08-20] MEDS ORDERED: SODIUM POLYSTYRENE SULFONATE 15 GM/60 ML BOTTLE ONE (21:56)
[2016-08-20] MEDS ORDERED: PIPERACILLIN/TAZOB 3.375 GM/50 ML PRE-DOCKED IVPB ONE (22:00)
--- NOTE | 2016-08-20 22:04 | CONSULT ---
Consult - text type - Consultation Consultation Note: Patient seen and exmained Patient is a 60 year old male with h/o DM, osteomylitis, amputation Left TMA, and right great toe came in with syncopal episode. States was attempting to go to his bedroom to call for his pills, having pain in the left leg when he tried to walk. States the next thing he remembers was being on the gurney with EMS and having pain to right forehead and neck. Denies nausea, vomiting, dizziness , chest pain, abd pain. Denies fever/chills. - Past Medical History COPD: Yes Diabetes: Yes (on insulin, with neuropathy ,h/o diabetic foot ulcer, osteomyelitis) HTN: Yes Lung CA: Yes (depression) - Surgical History Abdominal Surgery: Yes (HERNIA) Orthopedic Surgery: Yes (transmetatarsal amputation left foot, rt gr toe amputation) - Psycho/Social/Smoking Cessation Hx Anxiety: Yes (PTSD since 01/07) nonsmoker - Past Medical History Allergies/Adverse Reactions: Allergies Allergy/AdvReac Type Severity Reaction Status Date / Time shellfish derived Allergy Severe "HIVES" Verified 08/19/16 18:52 No Known Drug Allergies Allergy Verified 08/19/16 18:52 Home Medications: Ambulatory Orders Amlodipine Besylate [Norvasc -] 10 mg PO DAILY 11/07/14 Ascorbate Calcium [Vitamin C] 500 mg PO DAILY 11/07/14 Duloxetine HCl 30 mg PO DAILY 11/07/14 Ferrous Sulfate [Feosol] 325 mg PO DAILY 11/07/14 Folic Acid - 1 mg PO DAILY 11/07/14 Insulin (Levemir) [Levemir Flexpen -] 30 units SQ BID 11/07/14 Insulin Aspart [Novolog Flexpen] 0 unit SQ UTDICT 11/07/14 Trazodone HCl 300 mg PO HS 11/07/14 Vitamin B Complex [Super B Complex] 1 each PO DAILY 11/07/14 Zinc Sulfate 220 mg PO DAILY 11/07/14 Doxazosin Mesylate [Cardura -] 4 mg PO DAILY #30 tablet 11/24/14 Cholecalciferol (Vitamin D3) [Vitamin D3] 50,000 unit PO WEEKLY 12/07/15 Aspirin [ASA -] 81 mg PO DAILY 03/08/16 Hydrochlorothiazide [Hctz -] 25 mg PO DAILY #30 tab MDD 1 08/01/16 Oxycodone HCl/Acetaminophen [Percocet 5-325 mg Tablet] 1 tab PO QID #120 tablet MDD 4 08/01/16 Albuterol Sulfate Inhaler - [Ventolin Hfa Inhaler -] 2 inh PO Q4H PRN 08/19/16 Insulin Glargine,Hum.rec.anlog [Lantus Solostar PEN (NF)] 15 units SQ BID Metformin HCl [Metformin HCl ER] 500 mg PO BID 08/19/16 Mirtazapine [Remeron -] 30 mg PO HS 08/19/16 Omeprazole 20 mg PO DAILY 08/19/16 Pregabalin [Lyrica -] 150 mg PO TID MDD 2 08/19/16 Valsartan [Diovan] 80 mg PO DAILY 08/19/16 Current Medications Albuterol Sulfate (Ventolin Hfa Inhaler -) 2 puff IH Q4H PRN PRN Reason: WHEEZING Amlodipine Besylate (Norvasc -) 10 mg PO DAILY [facility] Last Admin: 08/22/16 09:52 Dose: 10 mg Ascorbic Acid (Vitamin C -) 500 mg PO DAILY [facility] Last Admin: 08/22/16 09:52 Dose: 500 mg Doxazosin Mesylate (Cardura -) 4 mg PO DAILY [facility] Last Admin: 08/22/16 09:57 Dose: 4 mg Duloxetine HCl (Cymbalta -) 30 mg PO DAILY [facility] Last Admin: 08/22/16 09:54 Dose: 30 mg Ferrous Sulfate (Feosol -) 325 mg PO DAILY [facility] Last Admin: 08/22/16 09:52 Dose: 325 mg Folic Acid (Folic Acid -) 1 mg PO DAILY [facility] Last Admin: 08/22/16 09:52 Dose: 1 mg Insulin Aspart (Novolog Vial Sliding Scale -) 1 vial SQ ACHS [facility] PRN Reason: Protocol Last Admin: 08/22/16 11:30 Dose: 4 units Insulin Detemir (Levemir Vial) 20 units SQ BID@0700,2200 [facility] Mirtazapine (Remeron -) 30 mg PO HS [facility] Last Admin: 08/21/16 22:05 Dose: 30 mg Oxycodone HCl (Roxicodone -) 5 mg PO Q6H PRN PRN Reason: PAIN Last Admin: 08/22/16 09:52 Dose: 5 mg Pantoprazole Sodium (Protonix -) 20 mg PO DAILY [facility] Last Admin: 08/22/16 09:54 Dose: 20 mg Piperacillin Sod/Tazobactam Sod (Zosyn 3.375gm Ivpb (Pre-Docked)) 3.375 gm IVPB Q8H-IV [facility] PRN Reason: Protocol Last Admin: 08/22/16 09:55 Dose: 3.375 gm Pregabalin (Lyrica -) 100 mg PO BID [facility] Last Admin: 08/22/16 09:54 Dose: 100 mg Sodium Bicarbonate (Sodium Bicarbonate -) 650 mg PO DAILY [facility] Last Admin: 08/22/16 13:53 Dose: 650 mg Trazodone HCl (Desyrel -) 300 mg PO HS [facility] Last Admin: 08/21/16 22:05 Dose: 300 mg Zinc Sulfate (Orazinc -) 220 mg PO DAILY [facility] Last Admin: 08/22/16 09:52 Dose: 220 mg - Vital Signs Last Vital Signs Temp Pulse Resp BP Pulse Ox 98.9 F 75 20 117/70 99 08/19/16 22:01 08/19/16 22:01 08/19/16 22:01 08/19/16 22:01 08/19/16 22:01 Lungs: Clear to P&A Abd: Soft, Normal bowel sounds, No organomegaly Ext:No significant edema Skin: No rashes, Integument intact A/P 60 y/o male, with DM, h/o osteomyelitis, fell at assisted liveing, hit his face and neck. syncopal episode from profound anemia Microcytic anemia : Hgb 3.7 transfusing 4th unit PRBCs Feels much better suspect chronic iron deficiency versus anemia of chronic disease EGD/colonoscopy few months ago were nl per patient, s/p polypectomies LDH--nl making hemolysis less likely Check B12/folate/TSH/fT4/protein studies Leukocytosis/thrombocytosis:? chronic r/o chronic infection--but no fever/chills. f/u blood cx r/o occult malignancy unlikely primary myeloproliferative disorder h/o fall Retropharyngeal collection--s/p fall and trauma to face/neck ENT consult also CT head neg. Reverse AG ratio : check protein studies. Need to r/o chronic inflammatory states vs plasma cell dyscraisa Will requts ID/GI consult. If unrevealing --will check CT c/a/p noncontrast
[2016-08-20] MEDS: traZODone HCL 100 MG TABLET (FP) PO SCH (22:12)
[2016-08-20] MEDS: MIRTAZAPINE 30 MG TABLET (FP) PO SCH (22:13)
[2016-08-20] MEDS ORDERED: oxyCODONE HCL 5 MG TABLET PO PRN (22:42)
[2016-08-20] MEDS ORDERED: HEMOQUE TEST 1 EACH EACH ONE (22:56)
[2016-08-21] MEDS: SODIUM CHLORIDE 1,000 ML IV SCH (00:45)
[2016-08-21 06:06] LABS: SERUM IRON 7 ug/dL (38-169); TOTAL IRON BINDING CAPACITY 130 ug/dL (250-450); UIBC 123 ug/dL (111-343)
[2016-08-21] MEDS: PREGABALIN 75 MG CAPSULE PO SCH ×2 (06:30→13:43)
[2016-08-21 06:52] LABS: BASOPHIL 0.1 % (0-2.0); EOSINOPHIL 0.4 % (0-4.5); MCH 22.6 pg (25.7-33.7); MCHC 31.7 g/dl (32.0-35.9); MEAN CELL VOLUME 71.1 fl (80-96); MEAN PLT VOLUME 6.5 fl (7.5-11.1); NEUTROPHILS 83.8 % (42.8-82.8); PLATELET COUNT 526 K/MM3 (134-434); RDW 25.8 % (11.9-15.9); WHITE BLOOD COUNT 19.9 K/mm3 (4.0-10.0)
[2016-08-21] MEDS: INSULIN DETEMIR 100 UNITS/ML MDV SQ SCH (07:28)
[2016-08-21] MEDS: INSULIN SLIDING SCALE (NOVOLOG) 1 VIAL SQ SCH ×4 (07:28→22:05)
[2016-08-21 07:36] LABS: ALBUMIN 1.4 g/dl (3.4-5.0); BILIRUBIN,TOTAL 0.2 mg/dL (0.2-1.0); CALCIUM 8.2 mg/dL (8.5-10.1); COCKROFT - GAULT 42.53; CREATININE 2.5 mg/dL (0.7-1.3); MAGNESIUM 1.8 mg/dL (1.8-2.4); PHOSPHOROUS 6.6 mg/dL (2.5-4.9); TOT PROT 6.5 g/dl (6.4-8.2)
[2016-08-21] MEDS ORDERED: DEXTROSE 50%-WATER 50 ML VIAL IVPUSH ONE (08:13)
[2016-08-21 08:34] VITALS: BMI 26.4
[2016-08-21] MEDS ORDERED: PT OWN MED DRAWER 7, Y5N ONE ×2 (08:40→21:21)
[2016-08-21] MEDS: ASCORBIC ACID 500 MG TABLET (FP) PO SCH (09:43)
[2016-08-21] MEDS: ZINC SULFATE 220 MG CAPSULE (FP) PO SCH (09:43)
[2016-08-21] MEDS: PANTOPRAZOLE 20 MG TABLET (FP) PO SCH (09:43)
[2016-08-21] MEDS: FERROUS SO4 325 MG TABLET (FP) PO SCH (09:43)
[2016-08-21] MEDS: DULoxetine HCL 30 MG CAPSULE.DR (FP) PO SCH (09:43)
[2016-08-21] MEDS: amLODIPine BESYLATE 10 MG TABLET (FP) PO SCH (09:44)
[2016-08-21] MEDS: FOLIC ACID 1 MG TABLET (FP) PO SCH (09:44)
[2016-08-21] MEDS: DOXAZOSIN MESYLATE 4 MG TABLET PO SCH (09:44)
[2016-08-21] MEDS: VITAMIN B COMPLEX W/C COMBO TABLET (FP) PO SCH (09:44)
--- NOTE | 2016-08-21 09:52 | CONSULT ---
Consultation: REQUESTING PROVIDER: CONSULT REQUEST: We have been asked to medically evaluate this patient for ( specify). HISTORY OF PRESENT ILLNESS: 60 year old male with a significant PMH of HTN, IDDM, PAD with multiple amputations, h/o of osteomyelitis in left foot, diabetic nephropathy presents to ED via EMS after an episode of syncope that occurred at the assisted living facility.The patient reports that he was in elevator when he had LOC. he states that he felt lightheaded before the syncopal episode. He woke up on a stretcher in the presence of EMS. He also reports 3-4 week of lethargy and cough. He also admits to weight loss 32 lbs/year. Currently he is copmplaining of problems with swallowing and left foot pain. Denies chest pain, SOB, palpitations. Denies N/V, diarrhea, dark stools or blood in stool. Denies any urinary symptoms. The patient denies headache, dizziness. The patient denies tongue biting, bowel/bladder incontinence. He has never had episode of syncope before and had colonoscopy in December2015. REVIEW OF SYSTEMS: CONSTITUTIONAL: generalized weakness Absent: fever, chills, diaphoresis,, malaise, loss of appetite, weight change HEENT: Absent: rhinorrhea, nasal congestion, throat pain, throat swelling, difficulty swallowing, mouth swelling, ear pain, eye pain, visual changes CARDIOVASCULAR: Absent: chest pain, syncope, palpitations, irregular heart rate, lightheadedness , peripheral edema RESPIRATORY: Absent: cough, shortness of breath, dyspnea with exertion, orthopnea, wheezing, stridor, hemoptysis GASTROINTESTINAL: Absent: abdominal pain, abdominal distension, nausea, vomiting, diarrhea, constipation, melena, hematochezia GENITOURINARY: Absent: dysuria, frequency, urgency, hesitancy, hematuria, flank pain, genital pain MUSCULOSKELETAL: left foot pain Absent: myalgia, joint swelling, back pain, neck pain SKIN: Absent: rash, itching, pallor ENDOCRINE: unexplained weight loss Absent: unexplained weight gain, heat intolerance, cold intolerance NEUROLOGIC: Absent: headache, focal weakness or paresthesias, dizziness, unsteady gait, seizure, mental status changes, bladder or bowel incontinence PSYCHIATRIC: Absent: anxiety, depression PHYSICAL EXAMINATION Vital Signs - 24 hr 08/20/16 08/20/16 08/20/16 10:02 11:54 13:56 Temperature 97.8 F 98.2 F 98.3 F Pulse Rate Pulse Rate [ 77 73 78 Apical] Respiratory 18 18 18 Rate Blood Pressure Blood Pressure 128/79 123/77 119/77 [Left Arm] O2 Sat by Pulse 97 97 97 Oximetry (%) 08/20/16 08/20/16 08/20/16 14:31 16:12 17:00 Temperature 97.6 F 97.2 F L Pulse Rate 74 Pulse Rate [ 79 69 Apical] Respiratory 18 18 18 Rate Blood Pressure 135/95 Blood Pressure 102/66 113/79 [Left Arm] O2 Sat by Pulse 97 97 Oximetry (%) 08/20/16 08/20/16 08/20/16 18:00 19:43 20:00 Temperature Pulse Rate 80 109 H Pulse Rate [ Apical] Respiratory 18 18 18 Rate Blood Pressure 135/86 181/94 Blood Pressure [Left Arm] O2 Sat by Pulse 97 95 Oximetry (%) 08/20/16 08/21/16 08/21/16 22:00 00:00 02:00 Temperature 97.3 F L 97.4 F L Pulse Rate 93 H 88 80 Pulse Rate [ Apical] Respiratory 18 18 18 Rate Blood Pressure 120/77 129/73 117/71 Blood Pressure [Left Arm] O2 Sat by Pulse 98 Oximetry (%) 08/21/16 08/21/16 04:00 09:10 Temperature 97.5 F L Pulse Rate 83 73 Pulse Rate [ Apical] Respiratory 18 12 Rate Blood Pressure 127/70 127/74 Blood Pressure [Left Arm] O2 Sat by Pulse 95 Oximetry (%) GENERAL: Awake, alert, and fully oriented, in no acute distress. HEAD: Normal with no signs of trauma. EYES: Pupils equal, round and reactive to light, extraocular movements intact, sclera anicteric, conjunctiva clear. No lid lag. EARS, NOSE, THROAT: Ears normal, nares patent, oropharynx clear without exudates. Moist mucous membranes. NECK: Normal range of motion, supple without lymphadenopathy, JVD, or masses. LUNGS: Breath sounds equal, clear to auscultation bilaterally. No wheezes, and no crackles. No accessory muscle use. HEART: Regular rate and rhythm, normal S1 and S2 without murmur, rub or gallop. ABDOMEN: Soft, nontender, distended, normoactive bowel sounds, no guarding, no rebound, no masses. MUSCULOSKELETAL: Normal range of motion at all joints. No bony deformities or tenderness. UPPER EXTREMITIES: 2+ pulses, warm. No cyanosis. No clubbing. No peripheral edema. LOWER EXTREMITIES: 2+ pulses, warm. No calf tenderness. 1+ peripheral edema in LE B/L, RLE: 1 toe amputated, deformities in second and fourth toe, no redness, swelling, LLE: amputated MTP, swollen, oozing wound and fluctuation on medial side of malleous, draining purulent whitish/yellow fluid, no crepitus, tenderness to palpation. NEUROLOGICAL: No facial asymmetry,decreased sensation in LE B/L. Normal speech. Gait not observed. PSYCHIATRIC: Cooperative. Good eye contact. Appropriate mood and affect. SKIN: Warm, dry, normal turgor, no rashes. Laboratory Results - last 24 hr 08/19/16 08/20/16 08/20/16 23:37 03:00 03:00 WBC RBC Hgb Hct MCV MCHC RDW Plt Count MPV Neutrophils % Lymphocytes % Monocytes % Eosinophils % Basophils % Band Neutrophils Platelet Estimate Platelet Comment Polychromasia Hypochromic-Microcytic Poikilocytosis Anisocytosis Microcytosis Target Cells INR PTT (Actin FS) Fibrinogen Sodium Potassium Chloride Carbon Dioxide Anion Gap BUN Creatinine Creat Clearance w eGFR POC Glucometer Random Glucose Calcium Phosphorus Magnesium Total Bilirubin AST ALT Alkaline Phosphatase Total Protein Albumin Vitamin B12 Serum Folate U Random Total Protein Ur Random Urea Nitrogn 483 Urine Creatinine 99.2 Random Vancomycin Rheumatoid Factor Blood Type B POSITIVE Antibody Screen Negative Direct Antiglob Test Crossmatch See Detail 08/20/16 08/20/16 08/20/16 03:00 09:00 11:30 WBC 23.5 H RBC 2.57 L Hgb 5.5 L* Hct 17.9 L MCV 69.8 L MCHC 30.9 L RDW 26.1 H Plt Count 552 H MPV 6.8 L Neutrophils % Lymphocytes % Monocytes % Eosinophils % Basophils % Band Neutrophils Platelet Estimate Platelet Comment Polychromasia Hypochromic-Microcytic Poikilocytosis Anisocytosis Microcytosis Target Cells INR PTT (Actin FS) Fibrinogen Sodium Potassium Chloride Carbon Dioxide Anion Gap BUN Creatinine Creat Clearance w eGFR POC Glucometer [phone] Random Glucose Calcium Phosphorus Magnesium Total Bilirubin AST ALT Alkaline Phosphatase Total Protein Albumin Vitamin B12 Serum Folate U Random Total Protein 91 H Ur Random Urea Nitrogn Urine Creatinine Random Vancomycin Rheumatoid Factor Blood Type Antibody Screen Direct Antiglob Test Crossmatch 08/20/16 08/20/16 08/20/16 11:40 17:10 17:10 WBC RBC Hgb Hct MCV MCHC RDW Plt Count MPV Neutrophils % Lymphocytes % Monocytes % Eosinophils % Basophils % Band Neutrophils Platelet Estimate Platelet Comment Polychromasia Hypochromic-Microcytic Poikilocytosis Anisocytosis Microcytosis Target Cells INR PTT (Actin FS) Fibrinogen Sodium 134 L Potassium 5.8 H Chloride 107 Carbon Dioxide 19 L Anion Gap 8 BUN 44 H Creatinine 2.5 H Creat Clearance w eGFR POC Glucometer Random Glucose 171 H Calcium 8.4 L Phosphorus Magnesium Total Bilirubin AST ALT Alkaline Phosphatase Total Protein Albumin Vitamin B12 982 H D Serum Folate 21 H U Random Total Protein Ur Random Urea Nitrogn Urine Creatinine Random Vancomycin Rheumatoid Factor Blood Type Antibody Screen Direct Antiglob Test Positive H Crossmatch See Detail 08/20/16 08/20/16 08/20/16 17:10 17:10 18:15 WBC 22.6 H RBC 3.30 L D Hgb 7.4 L D Hct 23.4 L D MCV 70.9 L MCHC 31.6 L RDW 25.8 H Plt Count 648 H MPV 6.9 L Neutrophils % 89.0 H Lymphocytes % 2.0 L D Monocytes % 5.0 Eosinophils % 1.0 D Basophils % Band Neutrophils 3.0 Platelet Estimate Increased Platelet Comment No clumping noted Polychromasia 1+ Hypochromic-Microcytic 2+ Poikilocytosis 1+ Anisocytosis 3+ Microcytosis 1+ Target Cells 3+ INR 1.40 H PTT (Actin FS) 39.5 H Fibrinogen 355.0 Sodium Potassium Chloride Carbon Dioxide Anion Gap BUN Creatinine Creat Clearance w eGFR POC Glucometer Random Glucose Calcium Phosphorus Magnesium Total Bilirubin AST ALT Alkaline Phosphatase Total Protein Albumin Vitamin B12 Serum Folate U Random Total Protein Ur Random Urea Nitrogn Urine Creatinine Random Vancomycin Rheumatoid Factor Blood Type Antibody Screen Direct Antiglob Test Crossmatch 08/20/16 08/20/16 08/21/16 18:15 23:20 03:54 WBC RBC Hgb Hct MCV MCHC RDW Plt Count MPV Neutrophils % Lymphocytes % Monocytes % Eosinophils % Basophils % Band Neutrophils Platelet Estimate Platelet Comment Polychromasia Hypochromic-Microcytic Poikilocytosis Anisocytosis Microcytosis Target Cells INR PTT (Actin FS) Fibrinogen Sodium 136 Potassium 5.7 H Chloride 107 Carbon Dioxide 20 L Anion Gap 9 BUN 44 H Creatinine 2.5 H Creat Clearance w eGFR POC Glucometer 132.98904 65.88104 Random Glucose 50 L D Calcium 8.9 Phosphorus Magnesium Total Bilirubin AST ALT Alkaline Phosphatase Total Protein Albumin Vitamin B12 Serum Folate U Random Total Protein Ur Random Urea Nitrogn Urine Creatinine Random Vancomycin Rheumatoid Factor Blood Type Antibody Screen Direct Antiglob Test Crossmatch 08/21/16 08/21/16 08/21/16 04:26 05:17 05:17 WBC 19.9 H RBC 2.80 L Hgb 6.3 L* D Hct 19.9 L MCV 71.1 L MCHC 31.7 L RDW 25.8 H Plt Count 526 H MPV 6.5 L Neutrophils % 83.8 H Lymphocytes % 5.9 L D Monocytes % 9.8 D Eosinophils % 0.4 Basophils % 0.1 Band Neutrophils Platelet Estimate Platelet Comment Polychromasia Hypochromic-Microcytic Poikilocytosis Anisocytosis Microcytosis Target Cells INR PTT (Actin FS) Fibrinogen Sodium 137 Potassium 5.4 H Chloride 109 H Carbon Dioxide 19 L Anion Gap 9 BUN 45 H Creatinine 2.5 H Creat Clearance w eGFR 26.48 POC Glucometer 75.68754 Random Glucose 36 L* D Calcium 8.2 L Phosphorus 6.6 H Magnesium 1.8 Total Bilirubin 0.2 D AST 13 L ALT 8 L Alkaline Phosphatase 124 H Total Protein 6.5 Albumin 1.4 L Vitamin B12 Serum Folate U Random Total Protein Ur Random Urea Nitrogn Urine Creatinine Random Vancomycin Rheumatoid Factor Blood Type Antibody Screen Direct Antiglob Test Crossmatch 08/21/16 08/21/16 08/21/16 05:17 05:17 05:37 WBC RBC Hgb Hct MCV MCHC RDW Plt Count MPV Neutrophils % Lymphocytes % Monocytes % Eosinophils % Basophils % Band Neutrophils Platelet Estimate Platelet Comment Polychromasia Hypochromic-Microcytic Poikilocytosis Anisocytosis Microcytosis Target Cells INR PTT (Actin FS) Fibrinogen Sodium Potassium Chloride Carbon Dioxide Anion Gap BUN Creatinine Creat Clearance w eGFR POC Glucometer 71.97635 Random Glucose Calcium Phosphorus Magnesium Total Bilirubin AST ALT Alkaline Phosphatase Total Protein Albumin Vitamin B12 Serum Folate U Random Total Protein Ur Random Urea Nitrogn Urine Creatinine Random Vancomycin 14.524 Rheumatoid Factor < 10.0 Blood Type Antibody Screen Direct Antiglob Test Crossmatch Active Medications Generic Name Dose Route Start Last Admin Trade Name Freq PRN Reason Stop Dose Admin Albuterol Sulfate 2 puff 08/20/16 00:08 Ventolin Hfa Inhaler - IH Q4H PRN WHEEZING Amlodipine Besylate 10 mg 08/20/16 10:00 08/20/16 10:13 Norvasc - PO 10 mg DAILY IGGY Administration Ascorbic Acid 500 mg 08/20/16 10:00 08/20/16 10:13 Vitamin C - PO 500 mg DAILY IGGY Administration Docusate Sodium 100 mg 08/21/16 10:00 Colace - PO BID IGGY Doxazosin Mesylate 4 mg 08/20/16 10:00 08/20/16 10:12 Cardura - PO 4 mg DAILY IGGY Administration Duloxetine HCl 30 mg 08/20/16 10:00 08/20/16 10:12 Cymbalta - PO 30 mg DAILY IGG[facility] Administration Ferrous Sulfate 325 mg 08/20/16 10:00 08/20/16 10:12 Feosol - PO 325 mg DAILY [facility] Administration Folic Acid 1 mg 08/20/16 10:00 08/20/16 10:12 Folic Acid - PO 1 mg DAILY [facility] Administration Sodium Chloride 1,000 mls @ 75 mls/hr 08/20/16 00:45 08/21/16 00:45 Normal Saline - IV 75 mls/hr ASDIR [facility] Administration Insulin Aspart 1 vial 08/20/16 07:00 08/21/16 07:28 Novolog Vial Sliding Scale - SQ Not Given ACHS [facility] Protocol Insulin Detemir 30 units 08/21/16 22:00 Levemir Vial SQ HS [facility] Mirtazapine 30 mg 08/20/16 22:00 08/20/16 22:13 Remeron - PO 30 mg HS [facility] Administration Multivitamins 1 each 08/20/16 10:00 08/20/16 10:13 Total B With C - PO 1 each DAILY [facility] Administration Oxycodone HCl 5 mg 08/20/16 22:42 Roxicodone - PO Q6H PRN PAIN Pantoprazole Sodium 20 mg 08/20/16 10:00 08/20/16 10:13 Protonix - PO 20 mg DAILY [facility] Administration Piperacillin Sod/Tazobactam Sod 3.375 gm 08/20/16 22:00 Zosyn 3.375gm Ivpb (Pre-Docked) IVPB Q8H-IV [facility] Protocol Polyethylene Glycol 17 gm 08/21/16 10:00 Miralax (For Daily Use) - PO DAILY [facility] Pregabalin 150 mg 08/20/16 06:00 08/21/16 06:30 Lyrica - PO 150 mg TID [facility] Administration Trazodone HCl 300 mg 08/20/16 22:00 08/20/16 22:12 Desyrel - PO 300 mg HS [facility] Administration Zinc Sulfate 220 mg 08/20/16 10:00 08/20/16 10:13 Orazinc - PO 220 mg DAILY [facility] Administration ASSESSMENT/PLAN: 60 year old male with a significant PMH of HTN, IDDM, PAD with multiple amputations, h/o of osteomyelitis in left foot, diabetic nephropathy presents to ED via EMS after an episode of syncope that occurred at the assisted living facility.The patient reports that he was in elevator when he had LOC. he states that he felt lightheaded before the syncopal episode. He was admitted to ICU. L foot fluid collection; -rule out osteomyelitis, continue Zosyn and Vancomycin - vancomycin level obtained -BL foot xrays performed showing changes suspicious for osteomyelitis in the L foot, will get MRI -wound culture sent, results pending, -the pt refused surgery tx but agreed to see them again Prevertebral, retropharyngeal fluid collection, -edema likely of noninfectious etiology, but will observe. -The spinal canal is normal in diameter and accommodates normal appearing spinal cord that shows intrinsically normal signal. -ENT will be called again to come today Severe Anemia: anemia of chronic disease v Fe deficiency v hemolytic anemia vs. hematologic disorder GI loss - -4 units of PRBC administered, more ordered -monitor cbc, BMp Hypercalcemia: Corrected Ca++: 10.8 possible secondary to hypovolemia volume resuscitation Syncope Workup and treat the underlying anemia Hyperkalemia: -improving with Ca gluconate, Insulin/D50, and kaexylate. -monitor Acute on chronic renal failure: unkown base line, most likely secondary long standing HTN, DM, and prerenal azotemia. Hyperphosphatemia- likely due to kidney failure. defer to nephro if phoslo should be started at this time IDDM -Levemir 30U BID with Novolog SSI -BGM -Check Hgb A1C Hypertension holding antihypertensives monitor BP FEN -Continue IVF - low K diet -replete electrolyte as needed Dispo: We will continue to follow the patient. Thank you for this consultative opportunity. Visit type - Emergency Visit Emergency Visit: Yes ED Registration Date: 08/19/16 Care time: The patient presented to the Emergency Department on the above date and was hospitalized for further evaluation of their emergent condition. - New Patient This patient is new to me today: Yes Date on this admission: 08/21/16 - Critical Care Critical Care patient: Yes Total Critical Care Time (in minutes): 50 Critical Care Statement: The care of this patient involved high complexity decision making to prevent further life threatening deterioration of the patient 's condition and/or to evalute & treat vital organ system(s) failure or risk of failure.
[2016-08-21] MEDS ORDERED: POLYETHYLENE GLYCOL 3350 119 GM BTL PO SCH (10:00)
[2016-08-21] MEDS ORDERED: DOCUSATE SODIUM 100 MG CAPSULE (FP) PO SCH (10:00)
--- NOTE | 2016-08-21 10:47 | PN ---
Progress Note (short form) - Note Progress Note: Renal Follow up for FROYLAN/CKD with Hyperkalemia Pt seen and examined at the bedside Vital Signs Temperature 97.5 F L 08/21/16 09:10 Pulse Rate 73 08/21/16 09:10 Respiratory Rate 12 08/21/16 09:10 Blood Pressure 127/74 08/21/16 09:10 O2 Sat by Pulse Oximetry (%) 96 08/21/16 09:10 Intake & Output 08/18/16 08/19/16 08/20/16 08/21/16 23:59 23:59 23:59 23:59 Intake Total 2390 1200 Output Total 900 500 Balance 1490 700 Weight 211 lb 222 lb 10.67 oz 223 lb 1.725 oz Gen: NAD, awake and alert, drowsy HEENT: No JVD CVS: RRR, No M/R Lungs: Dec BS at lung bases, no rales Abd: NT/ND Ext: 1+ edema in LE, Left TMA CBC, BMP 08/21/16 05:17 08/21/16 05:17 Laboratory Tests 08/19/16 08/20/16 08/20/16 21:00 03:00 03:00 MCV Neutrophils % Haptoglobin Calcium Phosphorus Magnesium Albumin Urine Protein Ur Leukocyte Esterase U Random Total Protein Ur Random Urea Nitrogn 483 Urine Creatinine 99.2 Stool Occult Blood Negative 08/20/16 08/20/16 08/20/16 03:00 03:30 17:10 MCV Neutrophils % Haptoglobin Pending Calcium Phosphorus Magnesium Albumin Urine Protein 2+ H Ur Leukocyte Esterase Trace H U Random Total Protein 91 H Ur Random Urea Nitrogn Urine Creatinine Stool Occult Blood 08/21/16 08/21/16 05:17 05:17 MCV 71.1 L Neutrophils % 83.8 H Haptoglobin Calcium 8.2 L Phosphorus 6.6 H Magnesium 1.8 Albumin 1.4 L Urine Protein Ur Leukocyte Esterase U Random Total Protein Ur Random Urea Nitrogn Urine Creatinine Stool Occult Blood Current Medications Albuterol Sulfate (Ventolin Hfa Inhaler -) 2 puff IH Q4H PRN PRN Reason: WHEEZING Amlodipine Besylate (Norvasc -) 10 mg PO DAILY [facility] Last Admin: 08/21/16 09:44 Dose: 10 mg Ascorbic Acid (Vitamin C -) 500 mg PO DAILY [facility] Last Admin: 08/21/16 09:43 Dose: 500 mg Doxazosin Mesylate (Cardura -) 4 mg PO DAILY [facility] Last Admin: 08/21/16 09:44 Dose: 4 mg Duloxetine HCl (Cymbalta -) 30 mg PO DAILY [facility] Last Admin: 08/21/16 09:43 Dose: 30 mg Ferrous Sulfate (Feosol -) 325 mg PO DAILY [facility] Last Admin: 08/21/16 09:43 Dose: 325 mg Folic Acid (Folic Acid -) 1 mg PO DAILY [facility] Last Admin: 08/21/16 09:44 Dose: 1 mg Sodium Chloride (Normal Saline -) 1,000 mls @ 75 mls/hr IV ASDIR [facility] Last Admin: 08/21/16 00:45 Dose: 75 mls/hr Insulin Aspart (Novolog Vial Sliding Scale -) 1 vial SQ ACHS [facility] PRN Reason: Protocol Last Admin: 08/21/16 07:28 Dose: Not Given Insulin Detemir (Levemir Vial) 30 units SQ HS [facility] Mirtazapine (Remeron -) 30 mg PO HS [facility] Last Admin: 08/20/16 22:13 Dose: 30 mg Multivitamins (Total B With C -) 1 each PO DAILY [facility] Last Admin: 08/21/16 09:44 Dose: 1 each Oxycodone HCl (Roxicodone -) 5 mg PO Q6H PRN PRN Reason: PAIN Pantoprazole Sodium (Protonix -) 20 mg PO DAILY [facility] Last Admin: 08/21/16 09:43 Dose: 20 mg Piperacillin Sod/Tazobactam Sod (Zosyn 3.375gm Ivpb (Pre-Docked)) 3.375 gm IVPB Q8H-IV [facility] PRN Reason: Protocol Pregabalin (Lyrica -) 150 mg PO TID [facility] Last Admin: 08/21/16 06:30 Dose: 150 mg Trazodone HCl (Desyrel -) 300 mg PO HS [facility] Last Admin: 08/20/16 22:12 Dose: 300 mg Zinc Sulfate (Orazinc -) 220 mg PO DAILY [facility] Last Admin: 08/21/16 09:43 Dose: 220 mg A/P 60 year old Gentleman with PMhx of CKD (baseline unclear), Hypertension, IDDM, PVD who presented s/p syncopal episode and found to have acute Anemia with Hgb of 3.7 and BUN/Cr of 41/2.7 and K of 6.8. #Hyperkalemia in setting of acute Anemia, renal hypoperfusion and ARB Potassium levels improved maintain off ARB and continue Low Potassium diet Trend K daily #FROYLAN vs. CKD Cr was 2.2 in 2014 Renal function stable so far this admission and pt is non-oliguric Renal US showed echogenic kidneys that are consistent with CKD no signs of obstruction continue IVF at the present time (pt with LE edema but likey due to 3rd spacing from low albumin levels) trend BUN/Cr no indication for CHEESE TESTER avoid NSAIDs and Nephrotoxins #Acute Anemia Transfuse as needed per primary team stool occult blood is negative ICU monitoring Heme following #Hypertension Holding ARB on Cardura and Amlodpine Thank you Will follow Miguel Jansen DO
--- NOTE | 2016-08-21 11:37 | PN ---
Teaching Attending Note Name of Resident: Shahnaz Almonte ATTENDING PHYSICIAN STATEMENT I saw and evaluated the patient. I reviewed the resident's note and discussed the case with the resident. I agree with the resident's findings and plan as documented. SUBJECTIVE: c/o sore throat OBJECTIVE: alert Vital Signs Period Temp Pulse Resp BP Sys/Gutierrez Pulse Ox Last 24 Hr 97.2 F-98.3 F 69-109 12-18 102-181/66-95 95-98 supple neck no trismus able to open mouth easily no pharyngitis, no exudates, no thrush cor-rrr lungs clear abd soft,nt left foot draining brown purulent fluid from below medial malleoli CBC, BMP 08/21/16 05:17 08/21/16 05:17 Microbiology 08/19/16 22:20 Blood - Peripheral Venous Blood Culture - Preliminary Pending Organism Pending Organism#2 08/20/16 07:40 Urine - Urine - Catheterized Urine Culture - Final NO GROWTH OBTAINED 08/19/16 22:20 Blood - Peripheral Venous Blood Culture - Preliminary Pending Organism ASSESSMENT AND PLAN: bacteremia-gram positive abscess left foot r/o osteomyelitis r/o retropharyngeal abscess vancomycin zosyn surgery to see for foot abscess ENT needs to see patient today to evaluate to r/o retropharyngeal abscess versus edema from fall MRI of foot esr/crp severe anemia r/o MM, r/o hiv transfusion, heme f/u FROYLAN/CKD diabetes d/w ICU service
--- NOTE | 2016-08-21 11:54 | MSN ---
Progress Note (short form) - Note Progress Note: SUBJECTIVE: Pt seen and examined at bedside. Abscess on pt L medial foot opened and drained purulent fluid yesterday. GS and Cx taken. Pt had BGL of 65 at ~ 0400 this morning. Was given OJ with repeat BGL of 75. Was given second OJ with repeat BGL of 71 at ~0530. No other acute events overnight. Pt states he feels better than he did yesterday. He still feels weak and has neck pain without great improvement since yesterday. Admits to having a BM yesterday but none since. He is tolerating PO diet w/o difficulty swallowing. Denies fevers, chills , sweats, CP, palpitations, SOB, abdominal pain, nausea, or vomiting. Has not had any change in vision or headaches. Active Medications Generic Name Dose Route Start Last Admin Trade Name Freq PRN Reason Stop Dose Admin Albuterol Sulfate 2 puff 08/20/16 00:08 Ventolin Hfa Inhaler - IH Q4H PRN WHEEZING Amlodipine Besylate 10 mg 08/20/16 10:00 08/21/16 09:44 Norvasc - PO 10 mg DAILY IGGY Administration Ascorbic Acid 500 mg 08/20/16 10:00 08/21/16 09:43 Vitamin C - PO 500 mg DAILY IGGY Administration Doxazosin Mesylate 4 mg 08/20/16 10:00 08/21/16 09:44 Cardura - PO 4 mg DAILY IGGY Administration Duloxetine HCl 30 mg 08/20/16 10:00 08/21/16 09:43 Cymbalta - PO 30 mg DAILY IGGY Administration Ferrous Sulfate 325 mg 08/20/16 10:00 08/21/16 09:43 Feosol - PO 325 mg DAILY IGGY Administration Folic Acid 1 mg 08/20/16 10:00 08/21/16 09:44 Folic Acid - PO 1 mg DAILY IGGY Administration Sodium Chloride 1,000 mls @ 75 mls/hr 08/20/16 00:45 08/21/16 00:45 Normal Saline - IV 75 mls/hr ASDIR IGGY Administration Insulin Aspart 1 vial 08/20/16 07:00 08/21/16 11:02 Novolog Vial Sliding Scale - SQ Not Given ACHS [facility] Protocol Insulin Detemir 30 units 08/21/16 22:00 Levemir Vial SQ HS IGGY Mirtazapine 30 mg 08/20/16 22:00 08/20/16 22:13 Remeron - PO 30 mg HS IGGY Administration Multivitamins 1 each 08/20/16 10:00 08/21/16 09:44 Total B With C - PO 1 each DAILY IGGY Administration Oxycodone HCl 5 mg 08/20/16 22:42 Roxicodone - PO Q6H PRN PAIN Pantoprazole Sodium 20 mg 08/20/16 10:00 08/21/16 09:43 Protonix - PO 20 mg DAILY IGGY Administration Piperacillin Sod/Tazobactam Sod 3.375 gm 08/21/16 12:00 Zosyn 3.375gm Ivpb (Pre-Docked) IVPB Q8H-IV IGGY Protocol Pregabalin 150 mg 08/20/16 06:00 08/21/16 06:30 Lyrica - PO 150 mg TID IGGY Administration Trazodone HCl 300 mg 08/20/16 22:00 08/20/16 22:12 Desyrel - PO 300 mg HS IGGY Administration Zinc Sulfate 220 mg 08/20/16 10:00 08/21/16 09:43 Orazinc - PO 220 mg DAILY IGGY Administration OBJECTIVE: Vital Signs Period Temp Pulse Resp BP Sys/Gutierrez Pulse Ox Last 24 Hr 97.2 F-98.3 F 69-109 12-18 102-181/66-95 95-98 Intake & Output 08/18/16 08/19/16 08/20/16 08/21/16 23:59 23:59 23:59 23:59 Intake Total 2390 1200 Output Total 900 2100 Balance 1490 -900 Weight 211 lb 222 lb 10.67 oz 223 lb 1.725 oz GENERAL: AAOx3, appears drowsy, no respiratory distress HEAD: R forehead laceration approximated with sutures covered with band aid, decreased swelling of R periorbital soft tissue, minimal R scleral injection, no pharyngeal erythema or exudates noted NECK: No JVD, supple, no LAD in submandibular, cervical, or clavicular area LUNGS: Coarse breath sounds BL (improved since yesterday), with no crackles/ wheezing/rhonchi HEART: Irregular rate with +S1/S2, no murmurs ABDOMEN: Soft, distended, no tenderness with deep palpation, tympanic to percussion in LUQ, normoactive BS : Serna in place draining yellow urine EXT: L LE more swollen than R lower extremity, no warmth BL, no erythema BL, L TMA and R great toe amputation, L abscess draining serous/purulent and foul smelling fluid, R great toe amp site healed, L TMA amp site with , pitting edema BL with L up to femur and R up to mid tibia, SCD intact on R LE, +2 DP on R LE, +2 radial BL NEURO: Normal speech, sensation intact distally to mid tibia on L LE and fully intact in R LE, motor grossly intact CBC WBC 19.9 K/mm3 (4.0-10.0) H 08/21/16 05:17 RBC 2.80 M/mm3 (4.00-5.60) L 08/21/16 05:17 Hgb 6.3 GM/dL (11.7-16.9) L* D 08/21/16 05:17 Hct 19.9 % (35.4-49) L 08/21/16 05:17 MCV 71.1 fl (80-96) L 08/21/16 05:17 MCHC 31.7 g/dl (32.0-35.9) L 08/21/16 05:17 RDW 25.8 % (11.9-15.9) H 08/21/16 05:17 Plt Count 526 K/MM3 (134-434) H 08/21/16 05:17 MPV 6.5 fl (7.5-11.1) L 08/21/16 05:17 Neutrophils % 83.8 % (42.8-82.8) H 08/21/16 05:17 Lymphocytes % 5.9 % (8-40) L D 08/21/16 05:17 Monocytes % 9.8 % (3.8-10.2) D 08/21/16 05:17 Eosinophils % 0.4 % (0-4.5) 08/21/16 05:17 Basophils % 0.1 % (0-2.0) 08/21/16 05:17 Band Neutrophils 3.0 % (0-10) 08/20/16 18:15 Differential Comment Manual diff done 08/19/16 20:40 Platelet Estimate Increased (NORMAL) 08/20/16 18:15 Platelet Comment No clumping noted 08/20/16 18:15 Polychromasia 1+ 08/20/16 18:15 Hypochromic-Microcytic 2+ 08/20/16 18:15 Poikilocytosis 1+ 08/20/16 18:15 Anisocytosis 3+ 08/20/16 18:15 Microcytosis 1+ 08/20/16 18:15 Target Cells 3+ 08/20/16 18:15 Schistocytes 1+ 08/19/16 20:40 Morphology Comment Slide scanned 08/19/16 20:40 Retic Count Cancelled 08/20/16 06:15 CMP Sodium 137 mmol/L (136-145) 08/21/16 05:17 Potassium 5.4 mmol/L (3.5-5.1) H 08/21/16 05:17 Chloride 109 mmol/L (98-107) H 08/21/16 05:17 Carbon Dioxide 19 mmol/L (21-32) L 08/21/16 05:17 Anion Gap 9 (8-16) 08/21/16 05:17 BUN 45 mg/dL (7-18) H 08/21/16 05:17 Creatinine 2.5 mg/dL (0.7-1.3) H 08/21/16 05:17 Creat Clearance w eGFR 26.48 (>60) 08/21/16 05:17 POC Glucometer 71.56867 UNITS (()) 08/21/16 05:37 Random Glucose 36 mg/dL (74-106) L* D 08/21/16 05:17 Lactic Acid 1.135 mmol/L (0.4-2.0) 08/19/16 22:20 Calcium 8.2 mg/dL (8.5-10.1) L 08/21/16 05:17 Phosphorus 6.6 mg/dL (2.5-4.9) H 08/21/16 05:17 Magnesium 1.8 mg/dL (1.8-2.4) 08/21/16 05:17 Iron 7 ug/dL (38-169) L 08/19/16 20:40 TIBC 130 ug/dL (250-450) L 08/19/16 20:40 Iron Saturation 5 % (15-55) L 08/19/16 20:40 Ferritin 398.205 ng/ml (16.4-293.9) H 08/19/16 20:40 Total Bilirubin 0.2 mg/dL (0.2-1.0) D 08/21/16 05:17 AST 13 U/L (15-37) L 08/21/16 05:17 ALT 8 U/L (12-78) L 08/21/16 05:17 Alkaline Phosphatase 124 U/L (45-117) H 08/21/16 05:17 LD Total 183 U/L (87-241) 08/19/16 20:40 Creatine Kinase 141 IU/L (39-308) 08/19/16 20:40 Troponin I < 0.02 ng/ml (0.00-0.05) 08/19/16 20:40 Total Protein 6.5 g/dl (6.4-8.2) 08/21/16 05:17 Albumin 1.4 g/dl (3.4-5.0) L 08/21/16 05:17 Vitamin B12 982 pg/ml (180-914) H D 08/20/16 17:10 Serum Folate 21 ng/ml (3.1-17.5) H 08/20/16 17:10 Urine Test Results Urine Color Yellow 08/20/16 03:30 Urine Appearance Slcloudy 08/20/16 03:30 Urine pH 5.0 (5.0-8.0) 08/20/16 03:30 Ur Specific Check 1.016 (1.001-1.035) 08/20/16 03:30 Urine Protein 2+ (NEGATIVE) H 08/20/16 03:30 Urine Glucose (UA) Negative (NEGATIVE) 08/20/16 03:30 Urine Ketones Negative (NEGATIVE) 08/20/16 03:30 Urine Blood Negative (NEGATIVE) 08/20/16 03:30 Urine Nitrite Negative (NEGATIVE) 08/20/16 03:30 Urine Bilirubin Negative (NEGATIVE) 08/20/16 03:30 Ur Leukocyte Esterase Trace (NEGATIVE) H 08/20/16 03:30 Urine RBC 11 /hpf (0-3) 08/20/16 03:30 Urine WBC 10 /hpf (3-5) 08/20/16 03:30 Ur Epithelial Cells Rare /hpf (FEW) 08/20/16 03:30 Urine Bacteria Rare /hpf (NONE SEEN) 08/20/16 03:30 Urine Mucus Rare 08/20/16 03:30 Urine total protein: 91 (H) Random urine nitrogen: 483 Urine Cr: 99 Microbiology 08/19/16 22:20 Blood Culture - Preliminary Blood - Peripheral Venous Pending Organism Pending Organism#2 08/20/16 07:40 Urine Culture - Final Urine - Urine - Catheterized NO GROWTH OBTAINED 08/19/16 22:20 Blood Culture - Preliminary Blood - Peripheral Venous Pending Organism Renal/Bladder US (08/20/16): BL echogenic kidneys consistent with CKD CXR (08/21/16): No acute pathology noted. No significant change since CXR on 08/20 A/P: Pt is a 60 yo M with PMHx of DM, HTN, diabetic neuropathy s/p BL foot amputations, and CKD, who presents to the ED s/p syncopal episode from standing position with +LOC and +head trauma. Pt was found to have a Hgb of 3.7 and WBC of 26.1 upon presentation. 1. Syncope -Most likely 2/2 Sx anemia -Workup and Tx of underlying anemia in progress -Pt is on telemetry to monitor for arrhythmic etiology of syncope -No abnormal events on telemetry thus far 2. Microcytic, hypochromic anemia -2/2 severe iron deficiency vs. hemolytic anemia vs. anemia of chronic disease/ inflammation vs. hematologic disorder (MDS/MM/leukemia) vs. GI loss vs. sepsis with subsequent depression of bone marrow response -CBC ordered by PCP in 02/2016 showed Hgb of 9.1. Hgb of 3.7 is unlikely to be acute since pt has been HD stable w/o hypotension or tachycardia -GI loss unlikely. FOBT negative. Pt had normal colonoscopy and EGD with Dr. Etienne in December 2015. Unlikely pt developed GI mass in the interim. Dr. Etienne to FU with scope results in office today. -Hemolytic anemia unlikely. LD and TBili are normal. LDH pending. -Iron studies consistent with mixed severe Fe deficiency and anemia of chronic disease/inflammation (low serum Fe, low TIBC, low iron sat, elevated ferritin). Continue with iron supplement and investigate for malignancy. -Sepsis 2/2 chronic osteomyelitis cannot be ruled out, however, pt has been afebrile with no Hx of fevers and is HD stable. L foot xray (08/20/16) shows degenerative changes consistent with osteomyelitis when compared to previous films. MRI of L foot pending. Sepsis can suppress bone marrow response to anemia accounting for the decreased retic count of <2. CHAKA to rule out endocarditis pending. -Hematology workup pending in order to rule out hematologic disorder as cause of anemia (MM, thallasemia, etc.). FU with study results. Hem-Onc on the case. -Will order and transfuse 2 more units of PRBCs today and then draw CBC 2 hours after transfusion. Goal is to keep Hgb >7. 3. Osteomyelitis -Xrays of BL feet (08/20/16) showing degenerative changes to the L foot consistent with osteomyelitis. MRI pending. -Pt agrees to let Dr. Shirley take care of him while in the hospital. Will reconsult Dr. Shirley. - + anaerobic blood Cx growing gram + cocci in chains and clusters. Osteomyelitis as the potential source. CONS for one bottle, ? skin contaminate. Wound GS is negative for organisms, FU Cx. -Pt on empiric coverage with Vanc/Zosyn. Will continue to follow with ID. 4. 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 Retropharyngeal/prevertebral edema on MRI -2/2 trauma rule out retropharyngeal abscess -ENT consult appreciated: not suggestive of abscess, no surgical intervention 6. Hypoglycemia with Hx of diabetes -Pt home meds include Levemir 30U BID with Novolog SSI per PCP (Dr. Bonilla) -Pt admits to following own regimen with 16-25U of Levemir HS without morning dose and Novolog as needed. -Episodes of hypoglycemia this morning most likely 2/2 Levemir HS dose. -Morning dose of Levemir 30U held today with no Novolog coverage needed so far. Pt received 6U total of Novolog yesterday with both morning and nighttime dose of Levemir 30U. -Will monitor BGL this afternoon. Will lower Levemir dosage to 25U BID. -Continue BGM -Will order HbA1c 7. Leukocytosis -Improving -2/2 to sepsis from infectious (osteomyelitis vs. endocarditis) vs. malignancy vs. hematologic disorder -Continue to trend 8. Hyperkalemia -Resolving -Given Ca gluconate, Insulin/D50, and kaexylate in ED -Low K diet -Hold ARB -Continue to trend 9. L LE swelling -Duplex US negative for DVT -Most likely from 3rd spacing 2/2 low albumin level 10. FEN -Continue IVF with NS @75cc/hr. No signs of fluid overload -Continue to monitor and correct electrolyte abnormalities -Diabetic and Low K diet 11. DVT ppx -Hold Heparin 2/2 low Hgb -SCDs 12. Dispo -Pt admitted to ICU for further management. Needs telemetry monitoring. Pt has Hx of MRSA. Put on contact precautions. LOS in question right now. Edvin Ken, MS3
[2016-08-21] MEDS: PIPERACILLIN/TAZOB 3.375 GM/50 ML PRE-DOCKED IVPB SCH ×2 (12:05→17:56)
--- NOTE | 2016-08-21 13:24 | CON.ENT ---
Consult Consult Specialty:: ENT Referred by:: Dr. Martin Reason for Consultation:: ?retropharyngeal cyst vs abscess - History of Present Illness Chief Complaint: left neck pain History of Present Illness: 60 yo M residential resident is s/p fall admitted to 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: Peripheral Neuropathy Cardio/Vascular: Yes: HTN Gastrointestinal: Yes: GERD Psych: Yes: Depression Musculoskeletal: Yes: Other (chronic pain) Rheumatology: Yes: Other (history of osteomyletis) Endocrine: Yes: Diabetes Mellitus - Past Surgical History Past Surgical History: Yes: Amputation (transmetatarsal of Left foot) - Alcohol/Substance Use Hx Alcohol Use: No Number of Drinks Daily: 2 (weekends) - Smoking History Smoking history: Never smoked Have you smoked in the past 12 months: No Aproximately how many cigarettes per day: 0 - Social History Usual Living Arrangement: Half-Way ADL: Support Services History of Recent Travel: No Home Medications - Allergies Allergies/Adverse Reactions: Allergies Allergy/AdvReac Type Severity Reaction Status Date / Time shellfish derived Allergy Severe "HIVES" Verified 08/19/16 18:52 No Known Drug Allergies Allergy Verified 08/19/16 18:52 - Home Medications Home Medications: Ambulatory Orders Amlodipine Besylate [Norvasc -] 10 mg PO DAILY 11/07/14 Ascorbate Calcium [Vitamin C] 500 mg PO DAILY 11/07/14 Duloxetine HCl 30 mg PO DAILY 11/07/14 Ferrous Sulfate [Feosol] 325 mg PO DAILY 11/07/14 Folic Acid - 1 mg PO DAILY 11/07/14 Insulin (Levemir) [Levemir Flexpen -] 30 units SQ BID 11/07/14 Insulin Aspart [Novolog Flexpen] 0 unit SQ UTDICT 11/07/14 Trazodone HCl 300 mg PO HS 11/07/14 Vitamin B Complex [Super B Complex] 1 each PO DAILY 11/07/14 Zinc Sulfate 220 mg PO DAILY 11/07/14 Doxazosin Mesylate [Cardura -] 4 mg PO DAILY #30 tablet 07/29/15 Cholecalciferol (Vitamin D3) [Vitamin D3] 50,000 unit PO WEEKLY 12/07/15 Aspirin [ASA -] 81 mg PO DAILY 03/08/16 Hydrochlorothiazide [Hctz -] 25 mg PO DAILY #30 tab MDD 1 08/01/16 Oxycodone HCl/Acetaminophen [Percocet 5-325 mg Tablet] 1 tab PO QID #120 tablet MDD 4 08/01/16 Albuterol Sulfate Inhaler - [Ventolin Hfa Inhaler -] 2 inh PO Q4H PRN 08/19/16 Insulin Glargine,Hum.rec.anlog [Lantus Solostar PEN (NF)] 15 units SQ BID Metformin HCl [Metformin HCl ER] 500 mg PO BID 08/19/16 Mirtazapine [Remeron -] 30 mg PO HS 08/19/16 Omeprazole 20 mg PO DAILY 08/19/16 Pregabalin [Lyrica -] 150 mg PO TID MDD 2 08/19/16 Valsartan [Diovan] 80 mg PO DAILY 08/19/16 Family Disease History - Family Disease History Family Disease History: Diabetes: Mother Physical Exam-ENT Vital Signs: Vital Signs Temperature 97.5 F L 08/21/16 09:10 Pulse Rate 73 08/21/16 09:10 Respiratory Rate 12 08/21/16 09:10 Blood Pressure 127/74 08/21/16 09:10 O2 Sat by Pulse Oximetry (%) 96 08/21/16 09:10 Constitutional: Yes: No Distress, Calm Head: Yes: Other (bandage over right brow, sl edema right upper lid) Face: Yes: Other (mild edema) Eyes: Yes: Conjunctiva Clear Nose: Yes: Edema, Septum Deviated Nasal Passage: Yes: WNL Oral/Pharynx: Yes: WNL Outer Ear: Yes: WNL Neck: Yes: WNL (no mass or node, no adenopathy tenderness or crepitus n) Respiratory: Yes: WNL Imaging - Results Chest X-ray: Report Reviewed, Image Reviewed Cat Scan: Report Reviewed, Image Reviewed (CT neck: mild uniform soft tissue thickness along entire cervical spine (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 voice is clear, handling secretions well CT scan shows uniform retropharyngeal soft tissue thickness along entire cervical spine, NO focal swelling suggesting abscess or cyst Recommend: diet as tolerated no indication for surgical intervention Thank you for consultation, Srini Anderson MD FACS Code(s): R07.0 - PAIN IN THROAT
--- NOTE | 2016-08-21 14:23 | PN ---
Teaching Attending Note Name of Resident: Addie Barriga ATTENDING PHYSICIAN STATEMENT I saw and evaluated the patient. I reviewed the resident's note and discussed the case with the resident. I agree with the resident's findings and plan as documented. SUBJECTIVE: Patient seen and examined in the ICU. Awake and alert. Receiving pRBCs transfusion. No CP or SOB. No difficulty with swallowing or pooling of secretions. Intake & Output 08/18/16 08/19/16 08/20/16 08/21/16 23:59 23:59 23:59 23:59 Intake Total 2390 1200 Output Total 900 2100 Balance 1490 -900 Weight 211 lb 222 lb 10.67 oz 223 lb 1.725 oz Last Vital Signs Temp Pulse Resp BP Pulse Ox 97.5 F L 81 11 L 126/75 96 08/21/16 13:47 08/21/16 13:47 08/21/16 13:47 08/21/16 13:47 08/21/16 09:10 Active Medications Albuterol Sulfate (Ventolin Hfa Inhaler -) 2 puff IH Q4H PRN PRN Reason: WHEEZING Amlodipine Besylate (Norvasc -) 10 mg PO DAILY [facility] Last Admin: 08/21/16 09:44 Dose: 10 mg Ascorbic Acid (Vitamin C -) 500 mg PO DAILY [facility] Last Admin: 08/21/16 09:43 Dose: 500 mg Doxazosin Mesylate (Cardura -) 4 mg PO DAILY [facility] Last Admin: 08/21/16 09:44 Dose: 4 mg Duloxetine HCl (Cymbalta -) 30 mg PO DAILY [facility] Last Admin: 08/21/16 09:43 Dose: 30 mg Ferrous Sulfate (Feosol -) 325 mg PO DAILY [facility] Last Admin: 08/21/16 09:43 Dose: 325 mg Folic Acid (Folic Acid -) 1 mg PO DAILY [facility] Last Admin: 08/21/16 09:44 Dose: 1 mg Sodium Chloride (Normal Saline -) 1,000 mls @ 75 mls/hr IV ASDIR [facility] Last Admin: 08/21/16 00:45 Dose: 75 mls/hr Vancomycin HCl (Vancomycin (Pre-Docked)) 250 mls @ 166.667 mls/hr IVPB ONCE ONE PRN Reason: Protocol Stop: 08/21/16 16:29 Last Admin: 08/21/16 14:16 Dose: 166.667 mls/hr Insulin Aspart (Novolog Vial Sliding Scale -) 1 vial SQ ACHS IGGY PRN Reason: Protocol Last Admin: 08/21/16 11:02 Dose: Not Given Insulin Detemir (Levemir Vial) 30 units SQ HS IGGY Mirtazapine (Remeron -) 30 mg PO HS [facility] Last Admin: 08/20/16 22:13 Dose: 30 mg Oxycodone HCl (Roxicodone -) 5 mg PO Q6H PRN PRN Reason: PAIN Pantoprazole Sodium (Protonix -) 20 mg PO DAILY [facility] Last Admin: 08/21/16 09:43 Dose: 20 mg Piperacillin Sod/Tazobactam Sod (Zosyn 3.375gm Ivpb (Pre-Docked)) 3.375 gm IVPB Q8H-IV IGGY PRN Reason: Protocol Last Admin: 08/21/16 12:05 Dose: 3.375 gm Pregabalin (Lyrica -) 100 mg PO BID [facility] Trazodone HCl (Desyrel -) 300 mg PO HS [facility] Last Admin: 08/20/16 22:12 Dose: 300 mg Zinc Sulfate (Orazinc -) 220 mg PO DAILY [facility] Last Admin: 08/21/16 09:43 Dose: 220 mg Eyes: Yes: (+) Pallor Neck: Yes: Trachea Midline Cardiovascular: Yes: Regular Rate and Rhythm Respiratory: Yes: few scattered rhonchi Gastrointestinal: Yes: Normal Bowel Sounds, Soft Extremities: Yes: Left TMA healed with no erythema, warmth, drainage. R great toe amp healed, with no erythema, warmth, drainage. BL pitting edema (R up to mid tibia, L up to femur). L leg swollen 2x > R leg) Edema: LLE: 3+, RLE: 3+ Neurological: Yes: Alert, Oriented Labs: Laboratory Results - last 24 hr 08/19/16 08/19/16 08/20/16 20:40 23:37 03:00 WBC RBC Hgb Hct MCV MCHC RDW Plt Count MPV Neutrophils % Lymphocytes % Monocytes % Eosinophils % Basophils % Band Neutrophils Platelet Estimate Platelet Comment Polychromasia Hypochromic-Microcytic Poikilocytosis Anisocytosis Microcytosis Target Cells INR PTT (Actin FS) Fibrinogen Sodium Potassium Chloride Carbon Dioxide Anion Gap BUN Creatinine Creat Clearance w eGFR POC Glucometer Random Glucose Calcium Phosphorus Magnesium Iron 7 L TIBC 130 L Iron Saturation 5 L Total Bilirubin AST ALT Alkaline Phosphatase Total Protein Albumin Vitamin B12 Serum Folate U Random Total Protein Ur Random Urea Nitrogn 483 Urine Creatinine Random Vancomycin Rheumatoid Factor Blood Type B POSITIVE Antibody Screen Negative Direct Antiglob Test Crossmatch See Detail 08/20/16 08/20/16 08/20/16 03:00 03:00 17:10 WBC RBC Hgb Hct MCV MCHC RDW Plt Count MPV Neutrophils % Lymphocytes % Monocytes % Eosinophils % Basophils % Band Neutrophils Platelet Estimate Platelet Comment Polychromasia Hypochromic-Microcytic Poikilocytosis Anisocytosis Microcytosis Target Cells INR PTT (Actin FS) Fibrinogen Sodium Potassium Chloride Carbon Dioxide Anion Gap BUN Creatinine Creat Clearance w eGFR POC Glucometer Random Glucose Calcium Phosphorus Magnesium Iron TIBC Iron Saturation Total Bilirubin AST ALT Alkaline Phosphatase Total Protein Albumin Vitamin B12 982 H D Serum Folate 21 H U Random Total Protein 91 H Ur Random Urea Nitrogn Urine Creatinine 99.2 Random Vancomycin Rheumatoid Factor Blood Type Antibody Screen Direct Antiglob Test Crossmatch 08/20/16 08/20/16 08/20/16 17:10 17:10 17:10 WBC RBC Hgb Hct MCV MCHC RDW Plt Count MPV Neutrophils % Lymphocytes % Monocytes % Eosinophils % Basophils % Band Neutrophils Platelet Estimate Platelet Comment Polychromasia Hypochromic-Microcytic Poikilocytosis Anisocytosis Microcytosis Target Cells INR 1.40 H PTT (Actin FS) 39.5 H Fibrinogen 355.0 Sodium Potassium Chloride Carbon Dioxide Anion Gap BUN Creatinine Creat Clearance w eGFR POC Glucometer Random Glucose Calcium Phosphorus Magnesium Iron TIBC Iron Saturation Total Bilirubin AST ALT Alkaline Phosphatase Total Protein Albumin Vitamin B12 Serum Folate U Random Total Protein Ur Random Urea Nitrogn Urine Creatinine Random Vancomycin Rheumatoid Factor Blood Type Antibody Screen Direct Antiglob Test Positive H Crossmatch See Detail 08/20/16 08/20/16 08/20/16 18:15 18:15 23:20 WBC 22.6 H RBC 3.30 L D Hgb 7.4 L D Hct 23.4 L D MCV 70.9 L MCHC 31.6 L RDW 25.8 H Plt Count 648 H MPV 6.9 L Neutrophils % 89.0 H Lymphocytes % 2.0 L D Monocytes % 5.0 Eosinophils % 1.0 D Basophils % Band Neutrophils 3.0 Platelet Estimate Increased Platelet Comment No clumping noted Polychromasia 1+ Hypochromic-Microcytic 2+ Poikilocytosis 1+ Anisocytosis 3+ Microcytosis 1+ Target Cells 3+ INR PTT (Actin FS) Fibrinogen Sodium 136 Potassium 5.7 H Chloride 107 Carbon Dioxide 20 L Anion Gap 9 BUN 44 H Creatinine 2.5 H Creat Clearance w eGFR POC Glucometer 132.62271 Random Glucose 50 L D Calcium 8.9 Phosphorus Magnesium Iron TIBC Iron Saturation Total Bilirubin AST ALT Alkaline Phosphatase Total Protein Albumin Vitamin B12 Serum Folate U Random Total Protein Ur Random Urea Nitrogn Urine Creatinine Random Vancomycin Rheumatoid Factor Blood Type Antibody Screen Direct Antiglob Test Crossmatch 08/21/16 08/21/16 08/21/16 03:54 04:26 05:17 WBC 19.9 H RBC 2.80 L Hgb 6.3 L* D Hct 19.9 L MCV 71.1 L MCHC 31.7 L RDW 25.8 H Plt Count 526 H MPV 6.5 L Neutrophils % 83.8 H Lymphocytes % 5.9 L D Monocytes % 9.8 D Eosinophils % 0.4 Basophils % 0.1 Band Neutrophils Platelet Estimate Platelet Comment Polychromasia Hypochromic-Microcytic Poikilocytosis Anisocytosis Microcytosis Target Cells INR PTT (Actin FS) Fibrinogen Sodium Potassium Chloride Carbon Dioxide Anion Gap BUN Creatinine Creat Clearance w eGFR POC Glucometer 65.01484 75.32525 Random Glucose Calcium Phosphorus Magnesium Iron TIBC Iron Saturation Total Bilirubin AST ALT Alkaline Phosphatase Total Protein Albumin Vitamin B12 Serum Folate U Random Total Protein Ur Random Urea Nitrogn Urine Creatinine Random Vancomycin Rheumatoid Factor Blood Type Antibody Screen Direct Antiglob Test Crossmatch 08/21/16 08/21/16 08/21/16 05:17 05:17 05:17 WBC RBC Hgb Hct MCV MCHC RDW Plt Count MPV Neutrophils % Lymphocytes % Monocytes % Eosinophils % Basophils % Band Neutrophils Platelet Estimate Platelet Comment Polychromasia Hypochromic-Microcytic Poikilocytosis Anisocytosis Microcytosis Target Cells INR PTT (Actin FS) Fibrinogen Sodium 137 Potassium 5.4 H Chloride 109 H Carbon Dioxide 19 L Anion Gap 9 BUN 45 H Creatinine 2.5 H Creat Clearance w eGFR 26.48 POC Glucometer Random Glucose 36 L* D Calcium 8.2 L Phosphorus 6.6 H Magnesium 1.8 Iron TIBC Iron Saturation Total Bilirubin 0.2 D AST 13 L ALT 8 L Alkaline Phosphatase 124 H Total Protein 6.5 Albumin 1.4 L Vitamin B12 Serum Folate U Random Total Protein Ur Random Urea Nitrogn Urine Creatinine Random Vancomycin 14.524 Rheumatoid Factor < 10.0 Blood Type Antibody Screen Direct Antiglob Test Crossmatch 08/21/16 05:37 WBC RBC Hgb Hct MCV MCHC RDW Plt Count MPV Neutrophils % Lymphocytes % Monocytes % Eosinophils % Basophils % Band Neutrophils Platelet Estimate Platelet Comment Polychromasia Hypochromic-Microcytic Poikilocytosis Anisocytosis Microcytosis Target Cells INR PTT (Actin FS) Fibrinogen Sodium Potassium Chloride Carbon Dioxide Anion Gap BUN Creatinine Creat Clearance w eGFR POC Glucometer 71.00019 Random Glucose Calcium Phosphorus Magnesium Iron TIBC Iron Saturation Total Bilirubin AST ALT Alkaline Phosphatase Total Protein Albumin Vitamin B12 Serum Folate U Random Total Protein Ur Random Urea Nitrogn Urine Creatinine Random Vancomycin Rheumatoid Factor Blood Type Antibody Screen Direct Antiglob Test Crossmatch Problem List - Problems (1) Hyperkalemia Code(s): E87.5 - HYPERKALEMIA (2) Severe anemia Code(s): D64.9 - ANEMIA, UNSPECIFIED (3) Edema of both legs Code(s): R60.0 - LOCALIZED EDEMA (4) Osteoarthritis Code(s): M19.90 - UNSPECIFIED OSTEOARTHRITIS, UNSPECIFIED SITE (5) 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 Code(s): E11.9 - TYPE 2 DIABETES MELLITUS WITHOUT COMPLICATIONS (6) Foot infection Code(s): L08.9 - LOCAL INFECTION OF THE SKIN AND SUBCUTANEOUS TISSUE, UNSP (7) FROYLAN (acute kidney injury) Code(s): N17.9 - ACUTE KIDNEY FAILURE, UNSPECIFIED Assessment/Plan HTN CKD IDDM Osteomyelitis PVD S/P left foot amputation S/P fall with LOC and head laceration (?) Malignancy Staph Bacteremia ABX coverage per ID O2 as needed Strict I&O Normal transfusion thresholds Anemia workup ongoing Glycemic control ENT consult noted -> no need for surgical intervention Caution with his nighttime meds which can cause significant sedation and potential hypoventilation 4W/4S monitoring Critical care time spent in reviewing chart, evaluating patient and formulating plan [address] Butt
[2016-08-21] MEDS ORDERED: VANCOMYCIN 1 GRAM (PRE-DOCKED) 250 ML IVPB ONE (15:00)
[2016-08-21 15:14] LABS: MCH 22.8 pg (25.7-33.7); MCHC 31.2 g/dl (32.0-35.9); MEAN CELL VOLUME 73.2 fl (80-96); MEAN PLT VOLUME 6.9 fl (7.5-11.1); PLATELET COUNT 537 K/MM3 (134-434); RDW 24.9 % (11.9-15.9); WHITE BLOOD COUNT 18.7 K/mm3 (4.0-10.0)
--- NOTE | 2016-08-21 16:09 | PN ---
Physical Exam: SUBJECTIVE: Patient seen and examined, feeling weak, malaise. Dneis chest pain , sob, fever, chills, darlk stool s, hematuria. One normal BM yesterday. Adequate urine output. OBJECTIVE: Vital Signs Period Temp Pulse Resp BP Sys/Gutierrez Pulse Ox Last 24 Hr 97.2 F-97.5 F 69-109 11-18 113-181/70-95 95-98 GENERAL: The patient is awake, alert, and fully oriented, in no acute distress. HEAD: Normal with no signs of trauma. NECK: Trachea midline, full range of motion, supple. LUNGS: decreased breath sounds at bases, clear to auscultation bilaterally, no wheezes, no crackles, no accessory muscle use. HEART: Regular rate and rhythm, S1, S2 without murmur, rub or gallop. ABDOMEN: Soft, nontender, nondistended, normoactive bowel sounds, no guarding, no rebound, no hepatosplenomegaly, no masses. EXTREMITIES: 2+ pulses, warm, well-perfused, no edema. Right foot stump with ulcer, oozing pus, yellow dc NEUROLOGICAL: Cranial nerves II through XII grossly intact. Normal speech, gait not observed. PSYCH: Normal mood, normal affect. SKIN: Warm, dry, normal turgor, no rashes or lesions noted CBC, BMP 08/21/16 14:30 08/21/16 05:17 Active Medications Generic Name Dose Route Start Last Admin Trade Name Freq PRN Reason Stop Dose Admin Albuterol Sulfate 2 puff 08/20/16 00:08 Ventolin Hfa Inhaler - IH Q4H PRN WHEEZING Amlodipine Besylate 10 mg 08/20/16 10:00 08/21/16 09:44 Norvasc - PO 10 mg DAILY IGGY Administration Ascorbic Acid 500 mg 08/20/16 10:00 08/21/16 09:43 Vitamin C - PO 500 mg DAILY IGGY Administration Doxazosin Mesylate 4 mg 08/20/16 10:00 08/21/16 09:44 Cardura - PO 4 mg DAILY IGGY Administration Duloxetine HCl 30 mg 08/20/16 10:00 08/21/16 09:43 Cymbalta - PO 30 mg DAILY [facility] Administration Ferrous Sulfate 325 mg 08/20/16 10:00 08/21/16 09:43 Feosol - PO 325 mg DAILY I[facility] Administration Folic Acid 1 mg 08/20/16 10:00 08/21/16 09:44 Folic Acid - PO 1 mg DAILY [facility] Administration Sodium Chloride 1,000 mls @ 75 mls/hr 08/20/16 00:45 08/21/16 00:45 Normal Saline - IV 75 mls/hr ASDIR IGGY Administration Vancomycin HCl 250 mls @ 166.667 mls/hr 08/21/16 15:00 08/21/16 14:16 Vancomycin (Pre-Docked) IVPB 08/21/16 16:29 166.667 mls/hr ONCE ONE Administration Protocol Insulin Aspart 1 vial 08/20/16 07:00 08/21/16 16:04 Novolog Vial Sliding Scale - SQ Not Given ACHS [facility] Protocol Insulin Detemir 30 units 08/21/16 22:00 Levemir Vial SQ HS IGGY Mirtazapine 30 mg 08/20/16 22:00 08/20/16 22:13 Remeron - PO 30 mg HS IGGY Administration Oxycodone HCl 5 mg 08/20/16 22:42 Roxicodone - PO Q6H PRN PAIN Pantoprazole Sodium 20 mg 08/20/16 10:00 08/21/16 09:43 Protonix - PO 20 mg DAILY [facility] Administration Piperacillin Sod/Tazobactam Sod 3.375 gm 08/21/16 12:00 08/21/16 12:05 Zosyn 3.375gm Ivpb (Pre-Docked) IVPB 3.375 gm Q8H-IV IGGY Administration Protocol Pregabalin 100 mg 08/21/16 22:00 Lyrica - PO BID I[facility] Trazodone HCl 300 mg 08/20/16 22:00 08/20/16 22:12 Desyrel - PO 300 mg HS IGGY Administration Zinc Sulfate 220 mg 08/20/16 10:00 08/21/16 09:43 Orazinc - PO 220 mg DAILY [facility] Administration Head, Facial Bones, Cervical Spine CT: no intracranial/extracranial bleeding, no edema, no mass, no evidence of ischemia, + R supraorbital soft tissue swelling with laceration, no facial or spinal Fx MRI C-spine: prevertebral, retropharyngeal fluid collection/edema, likely non- infectious in etiology CXR: no acute pathology Echo: mild LVH ; LV mildy dilated ; preserved LVSF; no regional wall motin abnormalities; Mild to mod MR; Mod TR: RVSP 30-40mmhg; mild pulmonary hypertention; left and right atria mod dilated; mild aortic root dilation; small pericardial effusion <1cm ASSESSMENT/PLAN: Pt is a 60 yo M with PMHx of DM, HTN, diabetic neuropathy with left foot amputation, and CKD who presents to the ED s/p syncopal episode from standing position with +LOC and +head trauma. Pt was found to have a Hgb of 3.7 and WBC of 26.1 upon presentation. #Syncope most likely related to anemia: -severe iron deficiency vs. hemolytic anemia vs. anemia of chronic disease (CKD ) vs. hematologic disorder (MDS/MM/leukemia) vs. GI loss -s/p 5 U PRBC; with adequate rise in hemoglobin -FOBT negative -Pt reports Hx of colonoscopy in December of 2015 with subsequent Bx of colonic polyps negative. Pt reports nml EGD done around the same time. Both performed by Dr. Etienne -low serum iron; low TIBC, low iron saturation, high ferritin -hematology workup #Hyperkalemia; stabilizing -Medically treated with Ca gluconate, Insulin/D50, and kaexylate on 08/20 -Continue to trend #Acute on chronic renal failure -Renal US showing bilateral echogenic kidneys : this relates to chronic kidney disease -Renal consult # Leukocytosis : source of infection unknown infected foot vs retropharnygeal abscess vs malignancy -Blood cultures growing coagulase negative staph -cont vanco /zosyn; #Retropharyngeal/prevertebral edema on MRI -MRI does not correlate to active infection -Will order soft tissue cervical collar -ENT consulted, does not feel this is an abscess; no intervention from him at this time # L LE swelling -Duplex US negative for DVT # L foot ulcer -Patient willing to see Dr. Shirley -2/2 to seroma vs. abscess, rule out osteomyelitis -BL foot xrays performed showing changes suspicious for osteomyelitis in the L foot -MRI pending # Diabetes -levemir 30U HS -BGM FEN: Fluids: NS 75mls/hr Electrolytes:trend Diet: diabetic DVT ppx: scds Disposition: continue work up and management Visit type - Emergency Visit Emergency Visit: Yes ED Registration Date: 08/19/16 Care time: The patient presented to the Emergency Department on the above date and was hospitalized for further evaluation of their emergent condition. - New Patient This patient is new to me today: No - Critical Care Critical Care patient: Yes Total Critical Care Time (in minutes): 35 Critical Care Statement: The care of this patient involved high complexity decision making to prevent further life threatening deterioration of the patient 's condition and/or to evalute & treat vital organ system(s) failure or risk of failure.
--- NOTE | 2016-08-21 16:58 | PN ---
Progress Note (short form) - Note Progress Note: Podiatry: Pt seen and evaluated at bedside, NAD. Pain to L foot. I initially had consultation with patient yesterday. I recommended operative management given patient had a fluctuant bulla on the medial rearfoot of the L foot. I suspected source of sepsis from L foot. However, patient refused treatment, stating he only wanted his [facility] Technician [facility] to evaluate him, Dr. Galvan. I had discussed with staff about consulting Dr. Galvan, however I wasn' t sure he is still on staff. I was reconsulted this afternoon for same problem. The patient is currently afebrile. GUI: L foot: TMA amputation stump is well healed, no open wounds, no signs of infection. There is a large erupted bulla on the medial aspect of the left rearfoot. There is significant purulent drainage from the open site. There is surrounding fluctuance. There is tenderness to palpation. There is no soft tissue crepitus. The calf is finisher card tender. WBC: 22.6 H/H: 7.4/23.4 L foot XR: suspicious for osteomyelitis L rearfoot Imp: 60 year old IDDM M with L foot abscess, DFI 1. IV abx per ID 2. Irrigation at bedside. Purulent material still expressed from evacuated bulla site. 3. Apparently getting MRI done tonight. 4. I discussed with the patient he clearly needs operative management for incision and drainage. The ICU staff contact Dr. Galvan's office who will see the patient tonight. Please reconsult me as necessary. 5. Thanks for the reconsult. Anna Shirley DPM
[2016-08-21 17:31] LABS: HIV 1 & 2 AB NEGATIVE; HIV 1 AGp24 NEGATIVE
--- NOTE | 2016-08-21 18:47 | PN ---
Teaching Attending Note Name of Resident: Sis Barrett ATTENDING PHYSICIAN STATEMENT I saw and evaluated the patient. I reviewed the resident's note and discussed the case with the resident. I agree with the resident's findings and plan as documented. SUBJECTIVE: Patient feels tired. OBJECTIVE: Vital Signs Period Temp Pulse Resp BP Sys/Gutierrez Pulse Ox Last 24 Hr 97.3 F-97.5 F 73-109 11-18 117-181/70-94 95-98 HEART: S1S2, tachycardic LUNGS: Clear ABDOMEN: Soft, non-tender, non-distended, normal BS EXTREMITIES: 2+ edmea LLE, 1+ edema RLE, s/p left TMA, s/p right 1st toe amputation ASSESSMENT AND PLAN: 60yo M with PMH HTH, DM, Peripheral neuropathy, OM of L foot s/p amputation presented to the ER and was admitted for further evaluation of their emergent condition 1. Symptomatic anemia- concern for MDS vs malignancy. with assoc neutrophilic leukocytosis and thrombophilia. s/p 2 unit PRBC will order additional 2 units of blood. trend H/H. no signs of active bleeding and had recent GI workup negative per pt (will call Dr Etienne office to obtain copies of reports). iron studies pending. retic count low. hematology consulted. will possible require bone marrow bx. will d/w with them about imaging 2. Hyperkalemia- likely in setting of FROYLAN. also elevated with blood transfusion. will call neprhology as if does not improve may need to consider for HD. s/p kayexylate given twice and treated iwth insulin and D50 3. Acute on CKD- call pMD for baseline Cr function. possible due to hypoperfusion. will d/w renal. 4. hyperphosphatemia- likely due to kidney failure. defer to nephro if phoslo should be started at this time 5. Syncope- likely due to symptomatic anemia. cardiac montoring to r/o arrythmia also in setting of hyperkalemia. s/p mechanical fall. spoke with radiology who sates no ligamentous tear noted but does have some swelling. will place soft collar at this time. official MRI report pending. check echo 6. B/L LE edema- doppler to r/o dvt 7. Fluctuant bullae on L medial malleolus- podiatry consulted 8. DVT ppx- high risk however in setting of low hgb and LE edema will not order prophylaxis at this time. will need PT eval prior to discharge
--- NOTE | 2016-08-21 19:48 | PN ---
Physical Exam: SUBJECTIVE: Patient seen and examined, feeling weak, malaise, NAD, s/p 5 units PRBC Denies chest pain , sob, fever, chills, darlk stool s, hematuria. + brown BM yesterday. Adequate urine output. hypoglycemic over night. decreased levamir to once a day. Abscess on pt L medial foot spontaneously opened and drained purulent fluid over nigth, GS and Cx taken. OBJECTIVE: Vital Signs Period Temp Pulse Resp BP Sys/Gutierrez Pulse Ox Last 24 Hr 97.3 F-97.5 F 73-109 11-18 117-181/70-94 95-98 GENERAL: AAOx3 in NAD, sitting comfortably, tolerating dinner. HEAD: R forehead laceration, dressing clean and dry covering sutures, swelling of R periorbital soft tissue, R scleral injection EYES: Pupils equal, round and reactive to light, extraocular movements intact, sclera anicteric, conjunctiva clear. No lid lag. EARS, NOSE, THROAT: Ears normal, nares patent, oropharynx clear without exudates. Moist mucous membranes. NECK: tender cervical spine, limitted range of motion, supple without lymphadenopathy. + JVD. LUNGS: Coarse breath sounds BL. No wheezes, and no crackles. No accessory muscle use. HEART: Regular rate and rhythm, normal S1 and S2, + systolic murmur grade 2 ABDOMEN: Soft, nontender, not distended, normoactive bowel sounds, no guarding, no rebound, no masses. No hepatomegaly or splenomegaly. : Serna in place, draining yellow urine MUSCULOSKELETAL: Normal range of motion at all joints. No bony deformities or tenderness. No CVA tenderness. LOWER EXTREMITIES: LLE 2+ pitting edema +calf tenderness +2 cm flucuant bullae on medial malleoulus transmetatarsal amputation. RLE 1+pitting edema multiple digit amputation. unable to palpate pulses.L abscess draining serous/purulent and foul smelling fluid, NEUROLOGICAL: no facial asymmetry, Normal speech. loss of sensations below the knee. PSYCHIATRIC: Cooperative. Good eye contact. Appropriate mood and affect Laboratory Results - last 24 hr 08/19/16 08/20/16 08/20/16 23:37 03:00 03:00 WBC RBC Hgb Hct MCV MCHC RDW Plt Count MPV Neutrophils % Lymphocytes % Monocytes % Eosinophils % Basophils % Band Neutrophils Platelet Estimate Platelet Comment Polychromasia Hypochromic-Microcytic Poikilocytosis Anisocytosis Microcytosis Target Cells Sodium Potassium Chloride Carbon Dioxide Anion Gap BUN Creatinine Creat Clearance w eGFR POC Glucometer Random Glucose Calcium Phosphorus Magnesium Total Bilirubin AST ALT Alkaline Phosphatase Total Protein Albumin U Random Total Protein Ur Random Urea Nitrogn 483 Urine Creatinine 99.2 Random Vancomycin Rheumatoid Factor HIV 1&2 Antibody Screen HIV P24 Antigen Blood Type B POSITIVE Antibody Screen Negative Direct Antiglob Test Crossmatch See Detail 08/20/16 08/20/16 08/20/16 03:00 17:10 18:15 WBC 22.6 H RBC 3.30 L D Hgb 7.4 L D Hct 23.4 L D MCV 70.9 L MCHC 31.6 L RDW 25.8 H Plt Count 648 H MPV 6.9 L Neutrophils % 89.0 H Lymphocytes % 2.0 L D Monocytes % 5.0 Eosinophils % 1.0 D Basophils % Band Neutrophils 3.0 Platelet Estimate Increased Platelet Comment No clumping noted Polychromasia 1+ Hypochromic-Microcytic 2+ Poikilocytosis 1+ Anisocytosis 3+ Microcytosis 1+ Target Cells 3+ Sodium Potassium Chloride Carbon Dioxide Anion Gap BUN Creatinine Creat Clearance w eGFR POC Glucometer Random Glucose Calcium Phosphorus Magnesium Total Bilirubin AST ALT Alkaline Phosphatase Total Protein Albumin U Random Total Protein 91 H Ur Random Urea Nitrogn Urine Creatinine Random Vancomycin Rheumatoid Factor HIV 1&2 Antibody Screen HIV P24 Antigen Blood Type Antibody Screen Direct Antiglob Test Positive H Crossmatch See Detail 08/20/16 08/20/16 08/21/16 18:15 23:20 03:54 WBC RBC Hgb Hct MCV MCHC RDW Plt Count MPV Neutrophils % Lymphocytes % Monocytes % Eosinophils % Basophils % Band Neutrophils Platelet Estimate Platelet Comment Polychromasia Hypochromic-Microcytic Poikilocytosis Anisocytosis Microcytosis Target Cells Sodium 136 Potassium 5.7 H Chloride 107 Carbon Dioxide 20 L Anion Gap 9 BUN 44 H Creatinine 2.5 H Creat Clearance w eGFR POC Glucometer 132.21990 65.80518 Random Glucose 50 L D Calcium 8.9 Phosphorus Magnesium Total Bilirubin AST ALT Alkaline Phosphatase Total Protein Albumin U Random Total Protein Ur Random Urea Nitrogn Urine Creatinine Random Vancomycin Rheumatoid Factor HIV 1&2 Antibody Screen HIV P24 Antigen Blood Type Antibody Screen Direct Antiglob Test Crossmatch 08/21/16 08/21/16 08/21/16 04:26 05:17 05:17 WBC 19.9 H RBC 2.80 L Hgb 6.3 L* D Hct 19.9 L MCV 71.1 L MCHC 31.7 L RDW 25.8 H Plt Count 526 H MPV 6.5 L Neutrophils % 83.8 H Lymphocytes % 5.9 L D Monocytes % 9.8 D Eosinophils % 0.4 Basophils % 0.1 Band Neutrophils Platelet Estimate Platelet Comment Polychromasia Hypochromic-Microcytic Poikilocytosis Anisocytosis Microcytosis Target Cells Sodium 137 Potassium 5.4 H Chloride 109 H Carbon Dioxide 19 L Anion Gap 9 BUN 45 H Creatinine 2.5 H Creat Clearance w eGFR 26.48 POC Glucometer 75.79320 Random Glucose 36 L* D Calcium 8.2 L Phosphorus 6.6 H Magnesium 1.8 Total Bilirubin 0.2 D AST 13 L ALT 8 L Alkaline Phosphatase 124 H Total Protein 6.5 Albumin 1.4 L U Random Total Protein Ur Random Urea Nitrogn Urine Creatinine Random Vancomycin Rheumatoid Factor HIV 1&2 Antibody Screen HIV P24 Antigen Blood Type Antibody Screen Direct Antiglob Test Crossmatch 08/21/16 08/21/16 08/21/16 05:17 05:17 05:37 WBC RBC Hgb Hct MCV MCHC RDW Plt Count MPV Neutrophils % Lymphocytes % Monocytes % Eosinophils % Basophils % Band Neutrophils Platelet Estimate Platelet Comment Polychromasia Hypochromic-Microcytic Poikilocytosis Anisocytosis Microcytosis Target Cells Sodium Potassium Chloride Carbon Dioxide Anion Gap BUN Creatinine Creat Clearance w eGFR POC Glucometer 71.95801 Random Glucose Calcium Phosphorus Magnesium Total Bilirubin AST ALT Alkaline Phosphatase Total Protein Albumin U Random Total Protein Ur Random Urea Nitrogn Urine Creatinine Random Vancomycin 14.524 Rheumatoid Factor < 10.0 HIV 1&2 Antibody Screen HIV P24 Antigen Blood Type Antibody Screen Direct Antiglob Test Crossmatch 08/21/16 08/21/16 14:30 14:30 WBC 18.7 H RBC 3.14 L Hgb 7.2 L D Hct 23.0 L D MCV 73.2 L MCHC 31.2 L RDW 24.9 H Plt Count 537 H MPV 6.9 L Neutrophils % Lymphocytes % Monocytes % Eosinophils % Basophils % Band Neutrophils Platelet Estimate Platelet Comment Polychromasia Hypochromic-Microcytic Poikilocytosis Anisocytosis Microcytosis Target Cells Sodium Potassium Chloride Carbon Dioxide Anion Gap BUN Creatinine Creat Clearance w eGFR POC Glucometer Random Glucose Calcium Phosphorus Magnesium Total Bilirubin AST ALT Alkaline Phosphatase Total Protein Albumin U Random Total Protein Ur Random Urea Nitrogn Urine Creatinine Random Vancomycin Rheumatoid Factor HIV 1&2 Antibody Screen Negative HIV P24 Antigen Negative Blood Type Antibody Screen Direct Antiglob Test Crossmatch Active Medications Generic Name Dose Route Start Last Admin Trade Name Freq PRN Reason Stop Dose Admin Albuterol Sulfate 2 puff 08/20/16 00:08 Ventolin Hfa Inhaler - IH Q4H PRN WHEEZING Amlodipine Besylate 10 mg 08/20/16 10:00 08/21/16 09:44 Norvasc - PO 10 mg DAILY IGGY Administration Ascorbic Acid 500 mg 08/20/16 10:00 08/21/16 09:43 Vitamin C - PO 500 mg DAILY IGGY Administration Doxazosin Mesylate 4 mg 08/20/16 10:00 08/21/16 09:44 Cardura - PO 4 mg DAILY IGGY Administration Duloxetine HCl 30 mg 08/20/16 10:00 08/21/16 09:43 Cymbalta - PO 30 mg DAILY IGGY Administration Ferrous Sulfate 325 mg 08/20/16 10:00 08/21/16 09:43 Feosol - PO 325 mg DAILY IGGY Administration Folic Acid 1 mg 08/20/16 10:00 08/21/16 09:44 Folic Acid - PO 1 mg DAILY IGGY Administration Sodium Chloride 1,000 mls @ 75 mls/hr 08/20/16 00:45 08/21/16 00:45 Normal Saline - IV 75 mls/hr ASDIR IGGY Administration Insulin Aspart 1 vial 08/20/16 07:00 08/21/16 16:04 Novolog Vial Sliding Scale - SQ Not Given ACHS [facility] Protocol Insulin Detemir 30 units 08/21/16 22:00 Levemir Vial SQ HS IGGY Mirtazapine 30 mg 08/20/16 22:00 08/20/16 22:13 Remeron - PO 30 mg HS IGGY Administration Oxycodone HCl 5 mg 08/20/16 22:42 Roxicodone - PO Q6H PRN PAIN Pantoprazole Sodium 20 mg 08/20/16 10:00 08/21/16 09:43 Protonix - PO 20 mg DAILY IGGY Administration Piperacillin Sod/Tazobactam Sod 3.375 gm 08/21/16 12:00 08/21/16 17:56 Zosyn 3.375gm Ivpb (Pre-Docked) IVPB 3.375 gm Q8H-IV IGGY Administration Protocol Pregabalin 100 mg 08/21/16 22:00 Lyrica - PO BID IGGY Trazodone HCl 300 mg 08/20/16 22:00 08/20/16 22:12 Desyrel - PO 300 mg HS IGGY Administration Zinc Sulfate 220 mg 08/20/16 10:00 08/21/16 09:43 Orazinc - PO 220 mg DAILY IGGY Administration ASSESSMENT/PLAN: 60YM with PMH: HTN, DMII on insulin, PAD with multiple amputations, diabetic nephropathy presents to ED via EMS after an episode of syncope that occurred at the assisted living facility. +LOC, +head and neck Injury, On presentation Hgb of 3.7, WBC of 26.1, LDH wNL, K of 6.8, transfused 4 untits of blood, loss 32 lb /one year. sencope 2/2 Severe Anemia: -s/p 5units of PRBC administered, with inadequate response;Microcytic, hypochromic anemia:GI/Hem/Kidney source- anemia of chronic disease v Fe deficiency v hemolytic anemia vs. hematologic disorder (MDS/MM/ leukemia) vs. GI loss - endoscope and colonoscopy 2015 . GI consulted. lorraine loss and anaemia concerned for malignancy. OBT negative. repeat cbc, BMp Hypercalcemia: Corrected Ca++: 10.8 possible secondary to hypovolemia volume resuscitation Syncope -Most likely 2/2 Sx anemia -Workup and treat the underlying anemia Hyperkalemia: improving with Ca gluconate, Insulin/D50, and kaexylate. repeat bmp D/C Losartan low K diet Acute on chronic renal failure: unkown base line( BUN/Cr /1.9 -02/2016) most likely secondary long standing HTN, DM, and prerenal azotemia. -Renal consult pending -Continue IVF -Check UA, -UPCR, -Renal and bladder US -Trend BUN/Cr Hyperphosphatemia- likely due to kidney failure. defer to nephro if phoslo should be started at this time Prevertebral, retropharyngeal fluid collection, edema likely of noninfectious etiology. The spinal canal is normal in diameter and accommodates normal appearing spinal cord that shows intrinsically normal signal. -Will order soft tissue cervical collar -ENT consulted, does not feel this is an abscess; no intervention from him at this time L LE swelling -Duplex US pending to rule out DVT L foot fluid collection; Irrigation at bedside. Purulent material still expressed from evacuated bulla site. patient refused treatment from Dr. palacios. -2/2 to seroma vs. abscess, rule out osteomyelitis -BL foot xrays performed showing changes suspicious for osteomyelitis in the L foot -ID consulted MRI done tonight. incision and drainage Apparently getting discussed with Dr. Galvan's over phone, who will see the patient tonight. IDDM -decreased Levemir 30U HS with Novolog SSI, in ligth of hypoglycemia over night. -BGM -Check Hgb A1C Hypertension-holding antihypertensives at this time, will consider restarting once hypodermically stable. monitor BP FEN -Continue IVF - low K diet diabetic -replete electrolyte as needed DVT prophylaxis-- SCDS, no anticogulat at this time inl ight of hemostabilty. GI prophylaxis- protonix Dispo: admit into ICU Dispo: We will continue to follow the patient. Thank you for this consultative opportunity. Visit type - Emergency Visit Emergency Visit: Yes ED Registration Date: 08/19/16 Care time: The patient presented to the Emergency Department on the above date and was hospitalized for further evaluation of their emergent condition. - New Patient This patient is new to me today: No - Critical Care Critical Care patient: Yes Total Critical Care Time (in minutes): 52 Critical Care Statement: The care of this patient involved high complexity decision making to prevent further life threatening deterioration of the patient 's condition and/or to evalute & treat vital organ system(s) failure or risk of failure.
--- NOTE | 2016-08-21 21:17 | PN ---
Progress Note (short form) - Note Progress Note: Thank you for this consult. Patient has been attended by myself for > 4 years here at [facility] both on an inpatient basis and as an outpatient at the [facility] and for wound care at [facility] in the [place]. He was last attended by myself at the latter institution approximately 2-3 weeks ago. Mr. Judge insisted for care of his foot complaint by this examiner at this institution and is compliant with hospital protocol given I am the foot surgeon of record and on staff at this institution. Consult dictated. Operative Report dictated.
[2016-08-21] MEDS ORDERED: MIRTAZAPINE 15 MG TABLET (FP) ONE (21:20)
--- NOTE | 2016-08-21 21:39 | PN ---
GI Progress Note Subjective: No bleeding over night or during the day. No abdominal pain. Taking po. - Objective Vital Signs: Vital Signs Temperature 97.5 F L 08/21/16 13:47 Pulse Rate 87 08/21/16 17:55 Respiratory Rate 17 08/21/16 17:55 Blood Pressure 134/77 08/21/16 17:55 O2 Sat by Pulse Oximetry (%) 96 08/21/16 09:10 Constitutional: Well Nourished HENT: Yes: Normocephalic Neck: Yes: Supple Cardiovascular: Yes: Regular Rate and Rhythm Respiratory: Yes: CTA Bilaterally Gastrointestinal Inspection: Yes: Distention ...Auscultate: Yes: Normoactive Bowel Sounds ...Palpate: No: Tenderness ...Percussion: Yes: Tympanitic Labs: CBC, BMP 08/21/16 14:30 08/21/16 05:17 INR, PTT INR 1.40 (0.82-1.09) H 08/20/16 17:10 Fibrinogen 355.0 mg/dL (238-498) 08/20/16 17:10 Assessment/Plan Called for anemia. No new evidence of GI bleeding. Currently guaiac negative. CBC differential findings and MRI bone marrow finding suggest possible underlying malignancy Would check for TB and HIV. Recent procedures done-don't expect any new information to be gained by repeating them. EGD done in Dec revealed an adenoma in the duodenum with no dysplasia. Colonosocopy with 2 large adenomas completely removed. Heme/onc consult on chart Transfuse to maintain Hgb of 7-8 No further GI w/u necessary at this time. Please recall if I can be of further assistance.
[2016-08-21] MEDS ORDERED: PREGABALIN 75 MG CAPSULE PO SCH (22:00)
[2016-08-21] MEDS ORDERED: INSULIN DETEMIR 100 UNITS/ML MDV SQ SCH (22:00)
[2016-08-21] MEDS: traZODone HCL 100 MG TABLET (FP) PO SCH (22:05)
[2016-08-21] MEDS: MIRTAZAPINE 30 MG TABLET (FP) PO SCH (22:05)
[2016-08-21] MEDS: PREGABALIN 50 MG CAPSULE PO SCH (22:05)
--- NOTE | 2016-08-21 23:56 | CONS ---
DATE OF CONSULTATION: DATE OF DICTATION: 08/21/2016 PRESENTING PROBLEM: Patient has a draining abscess on the medial aspect of the left foot. HISTORY OF PRESENT ILLNESS: This patient very well known to this examiner, who this examiner has attended for the past 3-4 years, has history of multiple diabetic foot ulcerations and osteomyelitic processes necessitating a transmetatarsal amputation of the left foot. Patient had chronic wounds on the left foot with a plantar flap failure that this examiner attended at [facility] wound care center and later patient was transferred on an outpatient basis for chronic wound care by this examiner at the [facility] wound care center in the [place], [place]. Patient was admitted through the emergency room after suffering a asthenia and a fall and woke up in the emergency department of this institution. Patient is leukocytotic and is experiencing significant malaise. SIGNIFICANT PAST AND PRESENT MEDICAL HISTORY: Significant for multiple foot ulcerations, hyperbaric wound treatment, multiple amputations first with the great toe of the right foot, and then finally a transmetatarsal amputation on the left foot. Patient suffers from chronic kidney disease, hyperkalemia, anemia of unknown etiology, peripheral edema with cellulitis, uncontrolled diabetes mellitus, degenerative joint disease. Patient also has significant diabetic neuropathy for which he has been treated with gabapentin, Lyrica, and Cymbalta. ALLERGIC HISTORY: Significant for SHELLFISH derived (presumably IODINE). No known drug allergies. ACTIVE MEDICATIONS: Include albuterol, amlodipine besylate, ascorbic acid, Cardura, Cymbalta, ferrous sulfate, folic acid, Levemir, mirtazapine, oxycodone, pantoprazole, sodium. Is currently on parenteral Zosyn, Lyrica, trazodone, and zinc sulfate. CLINICAL EXAMINATION: Patient just returned from magnetic resonance imaging of the left foot. Patient is suffering obvious malaise. DP pulses are palpable but weak, but this may be due to peripheral edema. Patient has a mild presenting cellulitis of the left foot. On the medial aspect of the left foot is an approximate 1-cm ulceration that is actively suppurating and clinical examination reveals tracking of the wound to the dorsum of the foot distally. ASSESSMENT: Cellulitis, subfascial abscess. PLAN: An incision and drainage was performed at bedside as patient is insensate. Patient will need extensive wound care. It is noted that patient had a positive MRI back in the late fall, early winter. At [facility], patient went for an outpatient bone biopsy which revealed osteomyelitis (the organisms are unknown at this time as access to those records are not readily available), but it was known that patient had a polymicrobial infection with sensitivity to ciprofloxacin. Patient was prescribed oral ciprofloxacin by this examiner and requested to get an infectious disease consult at [facility] for long-term anti-microbial chemotherapy. After numerous requests, patient never went for said infectious disease consult, as the plantar wound on the plantar flap was healed, and patient apparently did not feel the need for the consult to determine if the oral ciprofloxacin was sufficient enough to eradicate the infection. Hence, the problem presenting today. Will continue to follow this patient. Patient will probably need further wound debridement and negative wound pressure therapy ([facility] wound VAC). Will continue to follow this patient. DR. NIURKA ARMSTRONG RT/[id number] MTDD
[2016-08-22] MEDS: SODIUM CHLORIDE 1,000 ML IV SCH (00:45)
[2016-08-22] MEDS: PIPERACILLIN/TAZOB 3.375 GM/50 ML PRE-DOCKED IVPB SCH ×3 (01:12→17:20)
[2016-08-22] MEDS: INSULIN SLIDING SCALE (NOVOLOG) 1 VIAL SQ SCH ×4 (06:36→21:35)
--- NOTE | 2016-08-22 08:22 | EKG ---
Test Reason : Blood Pressure : / mmHG Vent. Rate : 076 BPM Atrial Rate : 076 BPM P-R Int : 206 ms QRS Dur : 106 ms QT Int : 354 ms P-R-T Axes : 063 066 066 degrees QTc Int : 398 ms NORMAL SINUS RHYTHM LOW VOLTAGE QRS INCOMPLETE RIGHT BUNDLE BRANCH BLOCK BORDERLINE ECG WHEN COMPARED WITH ECG OF 19-AUG-2016 18:57, PREMATURE ATRIAL COMPLEXES ARE NO LONGER PRESENT Confirmed by FRANTZ PARADA, PLACIDO ([id number]) on 08/22/2016 8:22:36 AM Referred By: XIAO Confirmed By:PLACIDO LANDRY MD
[2016-08-22 08:48] LABS: MCH 22.7 pg (25.7-33.7); MCHC 30.5 g/dl (32.0-35.9); MEAN CELL VOLUME 74.4 fl (80-96); MEAN PLT VOLUME 6.9 fl (7.5-11.1); PLATELET COUNT 610 K/MM3 (134-434); RDW 25.6 % (11.9-15.9); WHITE BLOOD COUNT 15.5 K/mm3 (4.0-10.0)
[2016-08-22 09:01] LABS: CALCIUM 8.1 mg/dL (8.5-10.1); MAGNESIUM 1.8 mg/dL (1.8-2.4)
[2016-08-22 09:02] LABS: COCKROFT - GAULT 51.38; CREATININE 2.2 mg/dL (0.7-1.3); PHOSPHOROUS 6.6 mg/dL (2.5-4.9)
--- NOTE | 2016-08-22 09:23 | PN ---
Teaching Attending Note Name of Resident: Shahnaz Almonte ATTENDING PHYSICIAN STATEMENT I saw and evaluated the patient. I reviewed the resident's note and discussed the case with the resident. I agree with the resident's findings and plan as documented. SUBJECTIVE: feels better bedside debridement of leg yesterday swallowing and throat discomfort improved OBJECTIVE: Vital Signs Period Temp Pulse Resp BP Sys/Gutierrez Pulse Ox Last 24 Hr 97.3 F-98.3 F 79-100 11-20 126-149/75-86 96-97 cor-rrr lungs decreased bs at bases abd-soft,nt ext dressing removed, wound is packed CBC, BMP 08/22/16 05:20 08/22/16 05:20 vanco trough 16 Microbiology 08/19/16 22:20 Blood - Peripheral Venous Blood Culture - Preliminary Staphylococcus Coagulase Neg Staphylococcus Coagulase Neg#2 08/19/16 22:20 Blood - Peripheral Venous Blood Culture - Preliminary Beta Hemolytic Strep Staphylococcus Coagulase Neg 08/21/16 03:00 Abscess Gram Stain - Final 08/20/16 07:40 Urine - Urine - Catheterized Urine Culture - Final NO GROWTH OBTAINED Laboratory Tests 08/21/16 14:30 HIV 1&2 Antibody Screen Negative HIV P24 Antigen Negative ASSESSMENT AND PLAN: sepsis bacteremia foot abscess osteo severe anemia feli/ckd diabetes continue vancomycin based on levels continue zosyn f/u cultures f/u MRI ENT consult reviewed- no abscess
--- NOTE | 2016-08-22 09:33 | PN ---
Progress Note (short form) - Note Progress Note: ENT continued neck and shoulder pain s/p fall pt eating solid foods without trouble had minor episode of coughing with liquids, he states "it went down the wrong way" s/p treatment of left foot wound PE afebrile NAD oral cavity/oropharynx clear voice clear and strong no stridor or respiratory distress neck no mass or node Data: blood cultures ++beta hemolytic Streptococcus WBC 15.5 (down from high of 22.6 08/20/16) Impression: retropharyngeal swelling on MRI, characteristics suggest NON-infectious etiology throat function normal with normal diet intake, less throat pain voice clear, no dyspnea neck and shoulder pain s/p fall Recommend: diet as tolerated pt had minor episode of choking on liquids. If this persists suggest Swallowing consultation with Dilma Leal. Srini Anderson MD FACS Problem List - Problems (1) Throat discomfort Code(s): R07.0 - PAIN IN THROAT
[2016-08-22] MEDS ORDERED: PT OWN MED DRAWER 7, Y5N ONE ×2 (09:35→17:41)
[2016-08-22 09:43] LABS: INR 1.26 (0.82-1.09); PROTHROMBIN TIME (PATIENT) 13.9 SEC (9.98-11.88)
[2016-08-22] MEDS: FOLIC ACID 1 MG TABLET (FP) PO SCH (09:52)
[2016-08-22] MEDS: amLODIPine BESYLATE 10 MG TABLET (FP) PO SCH (09:52)
[2016-08-22] MEDS: ASCORBIC ACID 500 MG TABLET (FP) PO SCH (09:52)
[2016-08-22] MEDS: ZINC SULFATE 220 MG CAPSULE (FP) PO SCH (09:52)
[2016-08-22] MEDS: FERROUS SO4 325 MG TABLET (FP) PO SCH (09:52)
[2016-08-22] MEDS: DULoxetine HCL 30 MG CAPSULE.DR (FP) PO SCH (09:54)
[2016-08-22] MEDS: PREGABALIN 50 MG CAPSULE PO SCH ×2 (09:54→21:30)
[2016-08-22] MEDS: PANTOPRAZOLE 20 MG TABLET (FP) PO SCH (09:54)
[2016-08-22] MEDS: DOXAZOSIN MESYLATE 4 MG TABLET PO SCH (09:57)
[2016-08-22] MEDS ORDERED: VANCOMYCIN 1 GRAM (PRE-DOCKED) 1,000 MG/250 ML BAG IVPB ONE (10:15)
--- NOTE | 2016-08-22 11:03 | MSN ---
Progress Note (short form) - Note Progress Note: SUBJECTIVE: Pt seen and examined at bedside. GHISLAINE overnight. Episodes of hypoglycemia have resolved. Pt is not complaining of odynophagia today. He notes an overall improvement, however, he still feels weak and c/o of persistent neck pain and L foot pain. Admits to having a BM yesterday that was normal consistency for him. He is tolerating PO diet w/o difficulty swallowing. + cough with clear mucus production. He says the mucus is not colored. Denies fevers, chills, sweats, CP, palpitations, SOB, abdominal pain, nausea, or vomiting. Has not had any change in vision or headaches. Active Medications Generic Name Dose Route Start Last Admin Trade Name Freq PRN Reason Stop Dose Admin Albuterol Sulfate 2 puff 08/20/16 00:08 Ventolin Hfa Inhaler - IH Q4H PRN WHEEZING Amlodipine Besylate 10 mg 08/20/16 10:00 08/22/16 09:52 Norvasc - PO 10 mg DAILY IGGY Administration Ascorbic Acid 500 mg 08/20/16 10:00 08/22/16 09:52 Vitamin C - PO 500 mg DAILY IGGY Administration Doxazosin Mesylate 4 mg 08/20/16 10:00 08/22/16 09:57 Cardura - PO 4 mg DAILY IGGY Administration Duloxetine HCl 30 mg 08/20/16 10:00 08/22/16 09:54 Cymbalta - PO 30 mg DAILY IGGY Administration Ferrous Sulfate 325 mg 08/20/16 10:00 08/22/16 09:52 Feosol - PO 325 mg DAILY IGGY Administration Folic Acid 1 mg 08/20/16 10:00 08/22/16 09:52 Folic Acid - PO 1 mg DAILY IGGY Administration Sodium Chloride 1,000 mls @ 75 mls/hr 08/20/16 00:45 08/22/16 00:45 Normal Saline - IV 75 mls/hr ASDIR IGGY Administration Insulin Aspart 1 vial 08/20/16 07:00 08/22/16 06:36 Novolog Vial Sliding Scale - SQ 4 units ACHS IGGY Administration Protocol Insulin Detemir 30 units 08/21/16 22:00 08/21/16 22:04 Levemir Vial SQ 30 units HS IGGY Administration Mirtazapine 30 mg 08/20/16 22:00 08/21/16 22:05 Remeron - PO 30 mg HS IGGY Administration Oxycodone HCl 5 mg 08/20/16 22:42 08/22/16 09:52 Roxicodone - PO 5 mg Q6H PRN Administration PAIN Pantoprazole Sodium 20 mg 08/20/16 10:00 08/22/16 09:54 Protonix - PO 20 mg DAILY IGGY Administration Piperacillin Sod/Tazobactam Sod 3.375 gm 08/21/16 12:00 08/22/16 09:55 Zosyn 3.375gm Ivpb (Pre-Docked) IVPB 3.375 gm Q8H-IV IGGY Administration Protocol Pregabalin 100 mg 08/21/16 22:00 08/22/16 09:54 Lyrica - PO 100 mg BID IGGY Administration Trazodone HCl 300 mg 08/20/16 22:00 08/21/16 22:05 Desyrel - PO 300 mg HS IGGY Administration Zinc Sulfate 220 mg 08/20/16 10:00 08/22/16 09:52 Orazinc - PO 220 mg DAILY IGGY Administration OBJECTIVE: Vital Signs Period Temp Pulse Resp BP Sys/Gutierrez Pulse Ox Last 24 Hr 97.3 F-98.3 F 79-104 11-20 126-149/75-86 96-99 Intake & Output 08/19/16 08/20/16 08/21/16 08/22/16 23:59 23:59 23:59 23:59 Intake Total 2390 2780 995 Output Total 900 3600 600 Balance 1490 -820 395 Weight 211 lb 222 lb 10.67 oz 223 lb 1.725 oz 224 lb 4.8 oz GENERAL: AAOx3, appears drowsy, no respiratory distress HEAD: R forehead laceration approximated with sutures covered with band aid, decreased swelling of R periorbital soft tissue, no R scleral injection, no pharyngeal erythema or exudates noted NECK: No JVD, supple, no LAD in submandibular, cervical, or clavicular area, no TTP in cervical or clavicular area LUNGS: CTAB, -rales/rhonchi/wheezing, +cough with clear mucus production HEART: RRR with +S1/S2, no murmurs ABDOMEN: Soft, distended, no tenderness with deep palpation, NBS : Tobias in place draining yellow urine EXT: L LE more swollen than R lower extremity, no warmth BL, no erythema BL, L TMA and R great toe amputation, L dressing saturated with SS fluid, L LE dressing removed revealing wound s/p I&D with blood saturated iodoform packing in place, extension of incision to dorsum of the foot, R great toe amp site healed, L TMA amp site healed, pitting edema BL with L up to knee and R up to mid tibia, SCD intact on R LE, +2 DP on R LE, +2 radial BL NEURO: Normal speech, sensation intact distally to mid tibia on L LE and fully intact in R LE, motor grossly intact CBC WBC 15.5 K/mm3 (4.0-10.0) H 08/22/16 05:20 RBC 3.07 M/mm3 (4.00-5.60) L 08/22/16 05:20 Hgb 7.0 GM/dL (11.7-16.9) L 08/22/16 05:20 Hct 22.9 % (35.4-49) L 08/22/16 05:20 MCV 74.4 fl (80-96) L 08/22/16 05:20 MCHC 30.5 g/dl (32.0-35.9) L 08/22/16 05:20 RDW 25.6 % (11.9-15.9) H 08/22/16 05:20 Plt Count 610 K/MM3 (134-434) H 08/22/16 05:20 MPV 6.9 fl (7.5-11.1) L 08/22/16 05:20 Neutrophils % 83.8 % (42.8-82.8) H 08/21/16 05:17 Lymphocytes % 5.9 % (8-40) L D 08/21/16 05:17 Monocytes % 9.8 % (3.8-10.2) D 08/21/16 05:17 Eosinophils % 0.4 % (0-4.5) 08/21/16 05:17 Basophils % 0.1 % (0-2.0) 08/21/16 05:17 Band Neutrophils 3.0 % (0-10) 08/20/16 18:15 Differential Comment Manual diff done 08/19/16 20:40 Platelet Estimate Increased (NORMAL) 08/20/16 18:15 Platelet Comment No clumping noted 08/20/16 18:15 Polychromasia 1+ 08/20/16 18:15 Hypochromic-Microcytic 2+ 08/20/16 18:15 Poikilocytosis 1+ 08/20/16 18:15 Anisocytosis 3+ 08/20/16 18:15 Microcytosis 1+ 08/20/16 18:15 Target Cells 3+ 08/20/16 18:15 Schistocytes 1+ 08/19/16 20:40 Morphology Comment Slide scanned 08/19/16 20:40 Retic Count Cancelled 08/20/16 06:15 CMP Sodium 139 mmol/L (136-145) 08/22/16 05:20 Potassium 5.3 mmol/L (3.5-5.1) H 08/22/16 05:20 Chloride 111 mmol/L (98-107) H 08/22/16 05:20 Carbon Dioxide 19 mmol/L (21-32) L 08/22/16 05:20 Anion Gap 9 (8-16) 08/22/16 05:20 BUN 46 mg/dL (7-18) H 08/22/16 05:20 Creatinine 2.2 mg/dL (0.7-1.3) H 08/22/16 05:20 Creat Clearance w eGFR 26.48 (>60) 08/21/16 05:17 POC Glucometer 174.66610 UNITS (()) 08/22/16 08:26 Random Glucose 190 mg/dL (74-106) H D 08/22/16 05:20 Lactic Acid 1.135 mmol/L (0.4-2.0) 08/19/16 22:20 Calcium 8.1 mg/dL (8.5-10.1) L 08/22/16 05:20 Phosphorus 6.6 mg/dL (2.5-4.9) H 08/22/16 05:20 Magnesium 1.8 mg/dL (1.8-2.4) 08/22/16 05:20 Iron 7 ug/dL (38-169) L 08/19/16 20:40 TIBC 130 ug/dL (250-450) L 08/19/16 20:40 Iron Saturation 5 % (15-55) L 08/19/16 20:40 Ferritin 398.205 ng/ml (16.4-293.9) H 08/19/16 20:40 Total Bilirubin 0.2 mg/dL (0.2-1.0) D 08/21/16 05:17 AST 13 U/L (15-37) L 08/21/16 05:17 ALT 8 U/L (12-78) L 08/21/16 05:17 Alkaline Phosphatase 124 U/L (45-117) H 08/21/16 05:17 LD Total 183 U/L (87-241) 08/19/16 20:40 Creatine Kinase 141 IU/L (39-308) 08/19/16 20:40 Troponin I < 0.02 ng/ml (0.00-0.05) 08/19/16 20:40 Total Protein 6.5 g/dl (6.4-8.2) 08/21/16 05:17 Albumin 1.4 g/dl (3.4-5.0) L 08/21/16 05:17 Vitamin B12 982 pg/ml (180-914) H D 08/20/16 17:10 Serum Folate 21 ng/ml (3.1-17.5) H 08/20/16 17:10 Microbiology 08/19/16 22:20 Blood Culture - Preliminary Blood - Peripheral Venous Beta Hem Streptococcus Group G Staphylococcus Coagulase Neg 08/19/16 22:20 Blood Culture - Preliminary Blood - Peripheral Venous Staphylococcus Coagulase Neg Staphylococcus Coagulase Neg#2 08/21/16 03:00 Gram Stain - Final Abscess 08/20/16 07:40 Urine Culture - Final Urine - Urine - Catheterized NO GROWTH OBTAINED MRI L Foot (08/21/16): Findings consistent with osteomyelitis of the remnant metatarsal, tarsal, calcaneus, and talus bones. Also, findings consistent with early osteomyelitis changes of the distal tibia, lateral malleolus and medial malleolus CXR (08/22/16): Progressive L lower lobe changes with increasing density consistent with infiltrate vs. atelectasis A/P: Pt is a 60 yo M with PMHx of DM, HTN, diabetic neuropathy s/p BL foot amputations, and CKD, who presents to the ED s/p syncopal episode from standing position with +LOC and +head trauma. Pt was found to have a Hgb of 3.7 and WBC of 26.1 upon presentation. 1. Syncope -Most likely 2/2 Sx anemia -Workup and Tx of underlying anemia in progress -Pt is on telemetry to monitor for arrhythmic etiology of syncope -No abnormal events on telemetry thus far 2. Microcytic, hypochromic anemia -2/2 severe iron deficiency vs. hemolytic anemia vs. anemia of chronic disease/ inflammation vs. hematologic disorder (MDS/MM/leukemia) vs. GI loss vs. sepsis with subsequent depression of bone marrow response -CBC ordered by PCP in 02/2016 showed Hgb of 9.1. Hgb of 3.7 is unlikely to be acute since pt has been HD stable w/o hypotension or tachycardia -GI loss unlikely. FOBT negative. 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 Duodenal adenoma was not dysplastic. Unlikely pt developed GI mass in the interim. No need to repeat studies. GI signed off. -Hemolytic anemia unlikely. LDH and TBili are normal. Haptoglobin elevated. -Iron studies consistent with mixed severe Fe deficiency and anemia of chronic disease/inflammation (low serum Fe, low TIBC, low iron sat, elevated ferritin). Continue with iron supplement and investigation for malignancy. -Sepsis 2/2 chronic osteomyelitis cannot be ruled out, however, pt has been afebrile with no Hx of fevers and is HD stable. Pt did meet SIRS criteria (WBC, HR) on presentation. L foot xray (08/20/16) shows degenerative changes consistent with osteomyelitis when compared to previous films. MRI of L foot () consistent with osteomyelitis. Sepsis can suppress bone marrow's response to anemia accounting for the decreased retic count of <2. CHAKA negative for vegetations. -Hematology workup pending in order to rule out hematologic disorder as cause of anemia (MM, thallasemia, etc.). FU with study results. Hem-Onc on the case. -Hgb has been stable at or above 7 for the past day s/p receiving 1U yesterday ( 5th unit total). Will repeat CBC in afternoon. 1U on hold in case need to be transfused today. 3. Osteomyelitis -Xrays of BL feet (08/20/16) showing degenerative changes to the L foot consistent with osteomyelitis. MRI results showing the same. -Dr. Galvan saw the pt last night. Performed I&D at bedside with tissue Bx sent to lab. Dr. Galvan will continue to follow pt and should be back tomorrow. Wrote pt will most likely need further debridement with wound vac. - + anaerobic blood Cx's growing gram + cocci in chains and clusters (beta hemolytic strep group g and CONS). Osteomyelitis as the potential source. CONS unlikely to be skin contaminate with 2 + bottles. Repeat blood Cx pending. Wound GS is negative for organisms, Cx is growing beta hemolytic strep group g consistent with blood Cx -Pt on empiric coverage with Vanc/Zosyn. Vanc level pending for AM. Will continue to follow with ID. -FU tissue Bx performed by Dr. Galvan 4. FROYLAN on CKD -Improving with decrease in Cr to 2.2 -Cr has been stable this admission -Renal US consistent with CKD -Etiology in question right now -Non-oliguric -Trend BUN/Cr -PHx of negative KATHY, negative RF -Held ARB, avoid nephrotoxins and NSAIDs -[employer]IT[employer] SERVICES COORDINATOR not necessary at this time -DC IVF, DC tobias 5. Hypoglycemia with Hx of diabetes -Resolved -BGL have been >200 today. Required 14U Novolog past 24hrs -Will change Levemir to 20U BID with Novolog SSI -Continue BGM 6. Leukocytosis -Improving since beginning ABX -2/2 to sepsis from infectious (osteomyelitis) vs. malignancy vs. hematologic disorder -Continue to trend 7. Hyperphosphatemia -Persistent -2/2 FROYLAN on CKD -Trend 8. Hyperkalemia -Resolved -Given Ca gluconate, Insulin/D50, and kaexylate in ED -Low K diet -Hold ARB -Continue to trend with repeat BMP in AM 9. Retropharyngeal/prevertebral edema on MRI -2/2 trauma rule out retropharyngeal abscess -ENT consult appreciated: not suggestive of abscess or infection, no surgical intervention -If pt develops difficulty swallowing, have Mel Angela eval 10. L LE swelling -Duplex US negative for DVT -Most likely from 3rd spacing 2/2 low albumin level -Norvasc can be contributing to problem as well 11. FEN -Continue IVF with NS @75cc/hr. No signs or Sx of fluid overload -Continue to monitor and correct electrolyte abnormalities -Diabetic and Low K diet 12. DVT ppx -Hold Heparin 2/2 low Hgb -SCDs 13. Dispo -Pt can be transferred out of ICU. Pt has Hx of MRSA. Put on contact precautions. LOS in question right now. Edvin Ken, MS3
--- NOTE | 2016-08-22 11:07 | PN ---
Physical Exam: SUBJECTIVE: Patient seen and examined. the pt is feeling good today. He denies difficulty with swallowing, sore throat, SOB. No overnight events reported, no fever. OBJECTIVE: Vital Signs Period Temp Pulse Resp BP Sys/Gutierrez Pulse Ox Last 24 Hr 97.3 F-98.3 F 79-104 11-20 126-149/75-86 96-99 GENERAL: The patient is awake, alert, and fully oriented, in no acute distress. HEAD: Normal with no signs of trauma. EYES: PERRL, extraocular movements intact, sclera anicteric, conjunctiva clear. No ptosis. ENT: Ears normal, nares patent, oropharynx clear without exudates, moist mucous membranes. NECK: Trachea midline, full range of motion, supple. LUNGS: Breath sounds equal, clear to auscultation bilaterally, no wheezes, no crackles, no accessory muscle use. HEART: Regular rate and rhythm, S1, S2 without murmur, rub or gallop. ABDOMEN: Soft, nontender, nondistended, normoactive bowel sounds, no guarding, no rebound, no hepatosplenomegaly, no masses. EXTREMITIES: 1+ pulses, warm, 1+ peripheral edema in LE B/L, RLE: 1 toe amputated, deformities in second and fourth toe, no redness, swelling, LLE: amputated MTP, swollen, oozing wound and fluctuation on medial side of malleous , draining purulent whitish/yellow fluid, no crepitus, tenderness to palpation. NEUROLOGICAL:No facial asymmetry. Normal speech, gait not observed. PSYCH: Normal mood, normal affect. SKIN: Warm, dry, normal turgor, no rashes or lesions noted Laboratory Results - last 24 hr 08/21/16 08/21/16 08/21/16 08:56 10:59 14:30 WBC RBC Hgb Hct MCV MCHC RDW Plt Count MPV INR Sodium Potassium Chloride Carbon Dioxide Anion Gap BUN Creatinine POC Glucometer 112.31817 72.36422 Random Glucose Calcium Phosphorus Magnesium Random Vancomycin HIV 1&2 Antibody Screen Negative HIV P24 Antigen Negative 08/21/16 08/21/16 08/21/16 14:30 16:01 21:46 WBC 18.7 H RBC 3.14 L Hgb 7.2 L D Hct 23.0 L D MCV 73.2 L MCHC 31.2 L RDW 24.9 H Plt Count 537 H MPV 6.9 L INR Sodium Potassium Chloride Carbon Dioxide Anion Gap BUN Creatinine POC Glucometer 130.23967 300.79156 Random Glucose Calcium Phosphorus Magnesium Random Vancomycin HIV 1&2 Antibody Screen HIV P24 Antigen 08/22/16 08/22/16 08/22/16 05:20 05:20 05:35 WBC 15.5 H RBC 3.07 L Hgb 7.0 L Hct 22.9 L MCV 74.4 L MCHC 30.5 L RDW 25.6 H Plt Count 610 H MPV 6.9 L INR Sodium 139 Potassium 5.3 H Chloride 111 H Carbon Dioxide 19 L Anion Gap 9 BUN 46 H Creatinine 2.2 H POC Glucometer Random Glucose 190 H D Calcium 8.1 L Phosphorus 6.6 H Magnesium 1.8 Random Vancomycin 16.536 HIV 1&2 Antibody Screen HIV P24 Antigen 08/22/16 08/22/16 08/22/16 05:40 08:26 08:40 WBC RBC Hgb Hct MCV MCHC RDW Plt Count MPV INR 1.26 H Sodium Potassium Chloride Carbon Dioxide Anion Gap BUN Creatinine POC Glucometer 241.09059 174.08018 Random Glucose Calcium Phosphorus Magnesium Random Vancomycin HIV 1&2 Antibody Screen HIV P24 Antigen Active Medications Generic Name Dose Route Start Last Admin Trade Name Freq PRN Reason Stop Dose Admin Albuterol Sulfate 2 puff 08/20/16 00:08 Ventolin Hfa Inhaler - IH Q4H PRN WHEEZING Amlodipine Besylate 10 mg 08/20/16 10:00 08/22/16 09:52 Norvasc - PO 10 mg DAILY IGGY Administration Ascorbic Acid 500 mg 08/20/16 10:00 08/22/16 09:52 Vitamin C - PO 500 mg DAILY IGGY Administration Doxazosin Mesylate 4 mg 08/20/16 10:00 08/22/16 09:57 Cardura - PO 4 mg DAILY IGGY Administration Duloxetine HCl 30 mg 08/20/16 10:00 08/22/16 09:54 Cymbalta - PO 30 mg DAILY IGGY Administration Ferrous Sulfate 325 mg 08/20/16 10:00 08/22/16 09:52 Feosol - PO 325 mg DAILY IGGY Administration Folic Acid 1 mg 08/20/16 10:00 08/22/16 09:52 Folic Acid - PO 1 mg DAILY IGGY Administration Sodium Chloride 1,000 mls @ 75 mls/hr 08/20/16 00:45 08/22/16 00:45 Normal Saline - IV 75 mls/hr ASDIR IGGY Administration Insulin Aspart 1 vial 08/20/16 07:00 08/22/16 06:36 Novolog Vial Sliding Scale - SQ 4 units ACHS IGGY Administration Protocol Insulin Detemir 30 units 08/21/16 22:00 08/21/16 22:04 Levemir Vial SQ 30 units HS IGGY Administration Mirtazapine 30 mg 08/20/16 22:00 08/21/16 22:05 Remeron - PO 30 mg HS IGGY Administration Oxycodone HCl 5 mg 08/20/16 22:42 08/22/16 09:52 Roxicodone - PO 5 mg Q6H PRN Administration PAIN Pantoprazole Sodium 20 mg 08/20/16 10:00 08/22/16 09:54 Protonix - PO 20 mg DAILY IGGY Administration Piperacillin Sod/Tazobactam Sod 3.375 gm 08/21/16 12:00 08/22/16 09:55 Zosyn 3.375gm Ivpb (Pre-Docked) IVPB 3.375 gm Q8H-IV IGGY Administration Protocol Pregabalin 100 mg 08/21/16 22:00 08/22/16 09:54 Lyrica - PO 100 mg BID IGGY Administration Trazodone HCl 300 mg 08/20/16 22:00 08/21/16 22:05 Desyrel - PO 300 mg HS IGGY Administration Zinc Sulfate 220 mg 08/20/16 10:00 08/22/16 09:52 Orazinc - PO 220 mg DAILY IGGY Administration ASSESSMENT/PLAN: 60 year old male with a significant PMH of HTN, IDDM, PAD with multiple amputations, h/o of osteomyelitis in left foot, diabetic nephropathy presents to ED via EMS after an episode of syncope that occurred at the assisted living facility.The patient reports that he was in elevator when he had LOC. he states that he felt lightheaded before the syncopal episode. He was admitted to ICU. L foot fluid collection; -rule out osteomyelitis, continue Zosyn and Vancomycin, added additional dose os Vancomycin -vancomycin level obtained, newest 16, ordered Vanco level for tomorrow AM - MRI pending, the pt had his LLE drained and cleaned by [employer] -wound culture sent, results pending, -blood culture pending Prevertebral, retropharyngeal fluid collection, -edema likely of noninfectious etiology, but will observe. -ENT saw the pt , no further treatment recommended Severe Anemia: anemia of chronic disease v Fe deficiency v hemolytic anemia vs. hematologic disorder GI loss - -5 units of PRBC administered, more ordered -monitor cbc, BMp Hypercalcemia: volume resuscitation Syncope Workup and treat the underlying anemia Hyperkalemia: -improving with Ca gluconate, Insulin/D50, and kaexylate. -monitor Acute on chronic renal failure: unkown base line, most likely secondary long standing HTN, DM, and prerenal azotemia. Hyperphosphatemia- likely due to kidney failure. defer to nephro if phoslo should be started at this time IDDM -Levemir 30U BID with Novolog SSI, decreased due to hypoglycemia -BGM -Check Hgb A1C Hypertension holding antihypertensives monitor BP FEN -Continue IVF - low K diet -replete electrolyte as needed Dispo: We will continue to follow the patient. Thank you for this consultative opportunity. Visit type - Emergency Visit Emergency Visit: Yes ED Registration Date: 08/19/16 Care time: The patient presented to the Emergency Department on the above date and was hospitalized for further evaluation of their emergent condition. - New Patient This patient is new to me today: No - Critical Care Critical Care patient: Yes Total Critical Care Time (in minutes): 30 Critical Care Statement: The care of this patient involved high complexity decision making to prevent further life threatening deterioration of the patient 's condition and/or to evalute & treat vital organ system(s) failure or risk of failure.
--- NOTE | 2016-08-22 11:25 | PN ---
Physical Exam: SUBJECTIVE: Patient seen and examined at bed side this am. Pt states he feels better than he did yesterday. he still has mild neck pain. Pt seen and examined at bedside in ICU. D and C Abscess L medial foot opened and drained purulent fluid yesterday. GS and Cx sent BS in 250's thsi AM. Denies fevers, chills, sweats, CP, palpitations, SOB, abdominal pain, nausea, or vomiting. Has not had any change in vision or headaches. OBJECTIVE: Vital Signs Period Temp Pulse Resp BP Sys/Gutierrez Pulse Ox Last 24 Hr 97.3 F-98.3 F 79-104 11-20 126-149/75-86 96-99 GENERAL: AAOx3 in NAD, sitting comfortably, tolerating dinner. HEAD: R forehead laceration, dressing clean and dry covering sutures, swelling of R periorbital soft tissue, R scleral injection EYES: Pupils equal, round and reactive to light, extraocular movements intact, sclera anicteric, conjunctiva clear. No lid lag. EARS, NOSE, THROAT: Ears normal, nares patent, oropharynx clear without exudates. Moist mucous membranes. NECK: tender cervical spine, limitted range of motion, supple without lymphadenopathy. + JVD. LUNGS: Coarse breath sounds BL. No wheezes, and no crackles. No accessory muscle use. HEART: Regular rate and rhythm, normal S1 and S2, + systolic murmur grade 2 ABDOMEN: Soft, nontender, not distended, normoactive bowel sounds, no guarding, no rebound, no masses. No hepatomegaly or splenomegaly. : Serna in place, draining yellow urine MUSCULOSKELETAL: Normal range of motion at all joints. No bony deformities or tenderness. No CVA tenderness. LOWER EXTREMITIES: LLE 2+ pitting edema +calf tenderness +2 cm flucuant bullae on medial malleoulus transmetatarsal amputation. RLE 1+pitting edema multiple digit amputation. unable to palpate pulses. L dressing saturated with SS fluid, L LE dressing removed revealing wound s/p I&D with blood saturated iodoform packing in place, extension of incision to dorsum of the foot, NEUROLOGICAL: no facial asymmetry, Normal speech. loss of sensations below the knee. PSYCHIATRIC: Cooperative. Good eye contact. Appropriate mood and affect Laboratory Results - last 24 hr 08/21/16 08/21/16 08/21/16 08:56 10:59 14:30 WBC RBC Hgb Hct MCV MCHC RDW Plt Count MPV INR Sodium Potassium Chloride Carbon Dioxide Anion Gap BUN Creatinine POC Glucometer 112.52876 72.10991 Random Glucose Calcium Phosphorus Magnesium Random Vancomycin HIV 1&2 Antibody Screen Negative HIV P24 Antigen Negative 08/21/16 08/21/16 08/21/16 14:30 16:01 21:46 WBC 18.7 H RBC 3.14 L Hgb 7.2 L D Hct 23.0 L D MCV 73.2 L MCHC 31.2 L RDW 24.9 H Plt Count 537 H MPV 6.9 L INR Sodium Potassium Chloride Carbon Dioxide Anion Gap BUN Creatinine POC Glucometer 130.39171 300.52179 Random Glucose Calcium Phosphorus Magnesium Random Vancomycin HIV 1&2 Antibody Screen HIV P24 Antigen 08/22/16 08/22/16 08/22/16 05:20 05:20 05:35 WBC 15.5 H RBC 3.07 L Hgb 7.0 L Hct 22.9 L MCV 74.4 L MCHC 30.5 L RDW 25.6 H Plt Count 610 H MPV 6.9 L INR Sodium 139 Potassium 5.3 H Chloride 111 H Carbon Dioxide 19 L Anion Gap 9 BUN 46 H Creatinine 2.2 H POC Glucometer Random Glucose 190 H D Calcium 8.1 L Phosphorus 6.6 H Magnesium 1.8 Random Vancomycin 16.536 HIV 1&2 Antibody Screen HIV P24 Antigen 08/22/16 08/22/16 08/22/16 05:40 08:26 08:40 WBC RBC Hgb Hct MCV MCHC RDW Plt Count MPV INR 1.26 H Sodium Potassium Chloride Carbon Dioxide Anion Gap BUN Creatinine POC Glucometer 241.92670 174.87413 Random Glucose Calcium Phosphorus Magnesium Random Vancomycin HIV 1&2 Antibody Screen HIV P24 Antigen Active Medications Generic Name Dose Route Start Last Admin Trade Name Freq PRN Reason Stop Dose Admin Albuterol Sulfate 2 puff 08/20/16 00:08 Ventolin Hfa Inhaler - IH Q4H PRN WHEEZING Amlodipine Besylate 10 mg 08/20/16 10:00 08/22/16 09:52 Norvasc - PO 10 mg DAILY IGGY Administration Ascorbic Acid 500 mg 08/20/16 10:00 08/22/16 09:52 Vitamin C - PO 500 mg DAILY IGGY Administration Doxazosin Mesylate 4 mg 08/20/16 10:00 08/22/16 09:57 Cardura - PO 4 mg DAILY IGGY Administration Duloxetine HCl 30 mg 08/20/16 10:00 08/22/16 09:54 Cymbalta - PO 30 mg DAILY IGGY Administration Ferrous Sulfate 325 mg 08/20/16 10:00 08/22/16 09:52 Feosol - PO 325 mg DAILY IGGY Administration Folic Acid 1 mg 08/20/16 10:00 08/22/16 09:52 Folic Acid - PO 1 mg DAILY IGGY Administration Sodium Chloride 1,000 mls @ 75 mls/hr 08/20/16 00:45 08/22/16 00:45 Normal Saline - IV 75 mls/hr ASDIR IGGY Administration Insulin Aspart 1 vial 08/20/16 07:00 08/22/16 06:36 Novolog Vial Sliding Scale - SQ 4 units ACHS IGGY Administration Protocol Insulin Detemir 30 units 08/21/16 22:00 08/21/16 22:04 Levemir Vial SQ 30 units HS IGGY Administration Mirtazapine 30 mg 08/20/16 22:00 08/21/16 22:05 Remeron - PO 30 mg HS IGGY Administration Oxycodone HCl 5 mg 08/20/16 22:42 08/22/16 09:52 Roxicodone - PO 5 mg Q6H PRN Administration PAIN Pantoprazole Sodium 20 mg 08/20/16 10:00 08/22/16 09:54 Protonix - PO 20 mg DAILY IGGY Administration Piperacillin Sod/Tazobactam Sod 3.375 gm 08/21/16 12:00 08/22/16 09:55 Zosyn 3.375gm Ivpb (Pre-Docked) IVPB 3.375 gm Q8H-IV IGGY Administration Protocol Pregabalin 100 mg 08/21/16 22:00 08/22/16 09:54 Lyrica - PO 100 mg BID IGGY Administration Trazodone HCl 300 mg 08/20/16 22:00 08/21/16 22:05 Desyrel - PO 300 mg HS IGGY Administration Zinc Sulfate 220 mg 08/20/16 10:00 08/22/16 09:52 Orazinc - PO 220 mg DAILY IGGY Administration ASSESSMENT/PLAN: 60YM with PMH: HTN, DMII on insulin, PAD with multiple amputations, diabetic nephropathy presents to ED via EMS after an episode of syncope that occurred at the assisted living facility. +LOC, +head and neck Injury, On presentation Hgb of 3.7, WBC of 26.1, LDH wNL, K of 6.8, transfused 4 untits of blood, loss 32 lb /one year. sencope 2/2 Severe Anemia: - stable s/p 5units of PRBC administered, with inadequate response;Microcytic, hypochromic anemia:GI/Hem/Kidney source- anemia of chronic disease v Fe deficiency v hemolytic anemia vs. hematologic disorder (MDS/MM/leukemia) vs. GI loss - endoscope and colonoscopy 2015 lorraine loss and anaemia concerned for malignancy. OBT negative. Hypercalcemia: Corrected Ca++: 10.8 possible secondary to hypovolemia volume resuscitation Syncope -resolved, Most likely 2/2 Sx anemia -Workup and treat the underlying anemia Hyperkalemia: improving with Ca gluconate, Insulin/D50, and kaexylate. repeat bmp D/C Losartan low K diet Acute on chronic renal failure: unkown base line( BUN/Cr 17/1.9 -02/2016) most likely secondary long standing HTN, DM, and prerenal azotemia. -Renal consult pending -Continue IVF -Check UA, -UPCR, -Renal and bladder US -Trend BUN/Cr Hyperphosphatemia- likely due to kidney failure. Defer to nephro if phoslo should be started at this time. Prevertebral, retropharyngeal fluid collection, edema likely of noninfectious etiology. The spinal canal is normal in diameter and accommodates normal appearing spinal cord that shows intrinsically normal signal. -Will order soft tissue cervical collar. -ENT consulted, does not feel this is an abscess; no intervention from him at this time. L LE swelling -Duplex US pending to rule out DVT. L abcess s/p I&C Irrigation at bedside. Purulent material still expressed from evacuated bulla site. Patient refused treatment from Dr. palacios. -BL foot xrays performed showing changes suspicious for osteomyelitis in the L foot. -ID on board f/u MRI IDDM -decreased Levemir 30U HS with Novolog SSI, in light of hypoglycemia over night. -BGM -Check Hgb A1C Hypertension-restart home HTN medication FEN -Continue IVF - low K diet diabetic -replete electrolyte as needed DVT prophylaxis-- SCDS, no anticoagulant at this time in light of hemostabilty. GI prophylaxis- protonix Dispo: transfer to floors Visit type - Emergency Visit Emergency Visit: Yes ED Registration Date: 08/19/16 Care time: The patient presented to the Emergency Department on the above date and was hospitalized for further evaluation of their emergent condition. - New Patient This patient is new to me today: No - Critical Care Critical Care patient: Yes Total Critical Care Time (in minutes): 45 Critical Care Statement: The care of this patient involved high complexity decision making to prevent further life threatening deterioration of the patient 's condition and/or to evalute & treat vital organ system(s) failure or risk of failure.
--- NOTE | 2016-08-22 12:43 | PN ---
Teaching Attending Note Name of Resident: Addie Barriga ATTENDING PHYSICIAN STATEMENT I saw and evaluated the patient. I reviewed the resident's note and discussed the case with the resident. I agree with the resident's findings and plan as documented. SUBJECTIVE: Pt seen and examined in the ICU. No events overnight. s/p debridement yesterday. No fevers or chills, no shortness of breath or chest pain. OBJECTIVE: Last Vital Signs Temp Pulse Resp BP Pulse Ox 98 F 104 H 18 151/83 99 08/22/16 10:00 08/22/16 10:30 08/22/16 10:00 08/22/16 10:00 08/22/16 10:30 Intake & Output 08/19/16 08/20/16 08/21/16 08/22/16 23:59 23:59 23:59 23:59 Intake Total 2390 2780 995 Output Total 900 3600 600 Balance 1490 -820 395 Weight 211 lb 222 lb 10.67 oz 223 lb 1.725 oz 224 lb 4.8 oz Gen: NAD at rest Heart: RRR Lung: decreased breath sounds at the bases Abd: soft, nontender Ext: + edema, dressing dry CBC, BMP 08/22/16 05:20 08/22/16 05:20 Active Medications Albuterol Sulfate (Ventolin Hfa Inhaler -) 2 puff IH Q4H PRN PRN Reason: WHEEZING Amlodipine Besylate (Norvasc -) 10 mg PO DAILY [facility] Last Admin: 08/22/16 09:52 Dose: 10 mg Ascorbic Acid (Vitamin C -) 500 mg PO DAILY [facility] Last Admin: 08/22/16 09:52 Dose: 500 mg Doxazosin Mesylate (Cardura -) 4 mg PO DAILY [facility] Last Admin: 08/22/16 09:57 Dose: 4 mg Duloxetine HCl (Cymbalta -) 30 mg PO DAILY [facility] Last Admin: 08/22/16 09:54 Dose: 30 mg Ferrous Sulfate (Feosol -) 325 mg PO DAILY [facility] Last Admin: 08/22/16 09:52 Dose: 325 mg Folic Acid (Folic Acid -) 1 mg PO DAILY [facility] Last Admin: 08/22/16 09:52 Dose: 1 mg Sodium Chloride (Normal Saline -) 1,000 mls @ 75 mls/hr IV ASDIR [facility] Last Admin: 08/22/16 00:45 Dose: 75 mls/hr Insulin Aspart (Novolog Vial Sliding Scale -) 1 vial SQ ACHS [facility] PRN Reason: Protocol Last Admin: 08/22/16 11:30 Dose: 4 units Insulin Detemir (Levemir Vial) 30 units SQ HS [facility] Last Admin: 08/21/16 22:04 Dose: 30 units Mirtazapine (Remeron -) 30 mg PO HS [facility] Last Admin: 08/21/16 22:05 Dose: 30 mg Oxycodone HCl (Roxicodone -) 5 mg PO Q6H PRN PRN Reason: PAIN Last Admin: 08/22/16 09:52 Dose: 5 mg Pantoprazole Sodium (Protonix -) 20 mg PO DAILY [facility] Last Admin: 08/22/16 09:54 Dose: 20 mg Piperacillin Sod/Tazobactam Sod (Zosyn 3.375gm Ivpb (Pre-Docked)) 3.375 gm IVPB Q8H-IV IGGY PRN Reason: Protocol Last Admin: 08/22/16 09:55 Dose: 3.375 gm Pregabalin (Lyrica -) 100 mg PO BID [facility] Last Admin: 08/22/16 09:54 Dose: 100 mg Trazodone HCl (Desyrel -) 300 mg PO HS [facility] Last Admin: 08/21/16 22:05 Dose: 300 mg Zinc Sulfate (Orazinc -) 220 mg PO DAILY [facility] Last Admin: 08/22/16 09:52 Dose: 220 mg ASSESSMENT AND PLAN: Syncope Anemia Left foot ulcer infection s/p debridement Gram Positive Bacteremia Sepsis Acute on Chronic Renal Failure Hyperkalemia DM - continue antibiotics - f/u pending cultures - IVF - monitor urine output, creatinine - glucose control - PO as tolerated - OOB to chair - DVT prophylaxis
[2016-08-22] MEDS ORDERED: SODIUM BICARBONATE 650 MG TABLET PO SCH (13:00)
--- NOTE | 2016-08-22 13:02 | PN ---
Progress Note (short form) - Note Progress Note: Renal Follow up for FROYLAN/CKD with Hyperkalemia Pt seen and examined in the ICU awake and alert reports some headache and photosensativity no sob or chest pain good urine output Vital Signs Temperature 98 F 08/22/16 10:00 Pulse Rate 101 H 08/22/16 12:00 Respiratory Rate 16 08/22/16 12:00 Blood Pressure 151/87 08/22/16 12:00 O2 Sat by Pulse Oximetry (%) 99 08/22/16 10:30 Intake & Output 08/19/16 08/20/16 08/21/16 08/22/16 23:59 23:59 23:59 23:59 Intake Total 2390 2780 995 Output Total 900 3600 600 Balance 1490 -820 395 Weight 211 lb 222 lb 10.67 oz 223 lb 1.725 oz 224 lb 4.8 oz Gen: NAD, awake and alert, drowsy HEENT: No JVD CVS: RRR, No M/R Lungs: Dec BS at lung bases, no rales Abd: NT/ND Ext: 1+ edema in LE, Left TMA CBC, BMP 08/22/16 05:20 08/22/16 05:20 Current Medications Albuterol Sulfate (Ventolin Hfa Inhaler -) 2 puff IH Q4H PRN PRN Reason: WHEEZING Amlodipine Besylate (Norvasc -) 10 mg PO DAILY [facility] Last Admin: 08/22/16 09:52 Dose: 10 mg Ascorbic Acid (Vitamin C -) 500 mg PO DAILY [facility] Last Admin: 08/22/16 09:52 Dose: 500 mg Doxazosin Mesylate (Cardura -) 4 mg PO DAILY [facility] Last Admin: 08/22/16 09:57 Dose: 4 mg Duloxetine HCl (Cymbalta -) 30 mg PO DAILY [facility] Last Admin: 08/22/16 09:54 Dose: 30 mg Ferrous Sulfate (Feosol -) 325 mg PO DAILY [facility] Last Admin: 08/22/16 09:52 Dose: 325 mg Folic Acid (Folic Acid -) 1 mg PO DAILY [facility] Last Admin: 08/22/16 09:52 Dose: 1 mg Sodium Chloride (Normal Saline -) 1,000 mls @ 75 mls/hr IV ASDIR [facility] Last Admin: 08/22/16 00:45 Dose: 75 mls/hr Insulin Aspart (Novolog Vial Sliding Scale -) 1 vial SQ ACHS [facility] PRN Reason: Protocol Last Admin: 08/22/16 11:30 Dose: 4 units Insulin Detemir (Levemir Vial) 30 units SQ HS [facility] Last Admin: 08/21/16 22:04 Dose: 30 units Mirtazapine (Remeron -) 30 mg PO HS [facility] Last Admin: 08/21/16 22:05 Dose: 30 mg Oxycodone HCl (Roxicodone -) 5 mg PO Q6H PRN PRN Reason: PAIN Last Admin: 08/22/16 09:52 Dose: 5 mg Pantoprazole Sodium (Protonix -) 20 mg PO DAILY [facility] Last Admin: 08/22/16 09:54 Dose: 20 mg Piperacillin Sod/Tazobactam Sod (Zosyn 3.375gm Ivpb (Pre-Docked)) 3.375 gm IVPB Q8H-IV IGGY PRN Reason: Protocol Last Admin: 08/22/16 09:55 Dose: 3.375 gm Pregabalin (Lyrica -) 100 mg PO BID [facility] Last Admin: 08/22/16 09:54 Dose: 100 mg Sodium Bicarbonate (Sodium Bicarbonate -) 650 mg PO DAILY [facility] Trazodone HCl (Desyrel -) 300 mg PO HS [facility] Last Admin: 08/21/16 22:05 Dose: 300 mg Zinc Sulfate (Orazinc -) 220 mg PO DAILY [facility] Last Admin: 08/22/16 09:52 Dose: 220 mg A/P 60 year old Gentleman with PMhx of CKD (baseline unclear), Hypertension, IDDM, PVD who presented s/p syncopal episode and found to have acute Anemia with Hgb of 3.7 and BUN/Cr of 41/2.7 and K of 6.8. #Hyperkalemia in setting of acute Anemia, renal hypoperfusion and ARB Improved maintain on low K diet given CKD #FROYLAN vs. CKD Renal function stable d/c Serna catheter can d/c IVF as pt with good oral intake and BP stable #Acute Anemia Transfuse as needed per primary team stool occult blood is negative ICU monitoring Heme following #Hypertension Holding ARB on Cardura and Amlodpine Miguel Jansen DO
[2016-08-22 14:17] LABS: HAPTOGLOBIN 389 mg/dL (34-200)
--- NOTE | 2016-08-22 15:43 | PN ---
Physical Exam: SUBJECTIVE: Patient seen and examined, no fevers overnight, adequate urine output, some neck pain. Denies chills, chest pain, sob, GI or complaints. OBJECTIVE: Vital Signs Period Temp Pulse Resp BP Sys/Gutierrez Pulse Ox Last 24 Hr 97.3 F-98.5 F 79-104 13-20 126-155/77-87 96-99 GENERAL: The patient is awake, alert, and fully oriented, in no acute distress. NECK: Trachea midline, full range of motion, supple. LUNGS: Breath sounds equal, clear to auscultation bilaterally, no wheezes, no crackles, no accessory muscle use. HEART: Regular rate and rhythm, S1, S2 without murmur, rub or gallop. ABDOMEN: Soft, nontender, nondistended, normoactive bowel sounds, no guarding, no rebound, no hepatosplenomegaly, no masses. EXTREMITIES: 2+ pulses, warm, well-perfused, no edema. NEUROLOGICAL: Cranial nerves II through XII grossly intact. Normal speech, gait not observed. PSYCH: Normal mood, normal affect. SKIN: Warm, dry, normal turgor, no rashes or lesions noted Laboratory Results - last 24 hr 08/20/16 08/21/16 08/21/16 17:10 08:56 10:59 WBC RBC Hgb Hct MCV MCHC RDW Plt Count MPV Haptoglobin 389 H INR Sodium Potassium Chloride Carbon Dioxide Anion Gap BUN Creatinine POC Glucometer 112.05668 72.93942 Random Glucose Calcium Phosphorus Magnesium Random Vancomycin HIV 1&2 Antibody Screen HIV P24 Antigen 08/21/16 08/21/16 08/21/16 14:30 16:01 21:46 WBC RBC Hgb Hct MCV MCHC RDW Plt Count MPV Haptoglobin INR Sodium Potassium Chloride Carbon Dioxide Anion Gap BUN Creatinine POC Glucometer 130.04863 300.62288 Random Glucose Calcium Phosphorus Magnesium Random Vancomycin HIV 1&2 Antibody Screen Negative HIV P24 Antigen Negative 08/22/16 08/22/16 08/22/16 05:20 05:20 05:35 WBC 15.5 H RBC 3.07 L Hgb 7.0 L Hct 22.9 L MCV 74.4 L MCHC 30.5 L RDW 25.6 H Plt Count 610 H MPV 6.9 L Haptoglobin INR Sodium 139 Potassium 5.3 H Chloride 111 H Carbon Dioxide 19 L Anion Gap 9 BUN 46 H Creatinine 2.2 H POC Glucometer Random Glucose 190 H D Calcium 8.1 L Phosphorus 6.6 H Magnesium 1.8 Random Vancomycin 16.536 HIV 1&2 Antibody Screen HIV P24 Antigen 08/22/16 08/22/16 08/22/16 05:40 08:26 08:40 WBC RBC Hgb Hct MCV MCHC RDW Plt Count MPV Haptoglobin INR 1.26 H Sodium Potassium Chloride Carbon Dioxide Anion Gap BUN Creatinine POC Glucometer 241.25950 174.52080 Random Glucose Calcium Phosphorus Magnesium Random Vancomycin HIV 1&2 Antibody Screen HIV P24 Antigen 08/22/16 11:05 WBC RBC Hgb Hct MCV MCHC RDW Plt Count MPV Haptoglobin INR Sodium Potassium Chloride Carbon Dioxide Anion Gap BUN Creatinine POC Glucometer 239.83398 Random Glucose Calcium Phosphorus Magnesium Random Vancomycin HIV 1&2 Antibody Screen HIV P24 Antigen Active Medications Generic Name Dose Route Start Last Admin Trade Name Freq PRN Reason Stop Dose Admin Albuterol Sulfate 2 puff 08/20/16 00:08 Ventolin Hfa Inhaler - IH Q4H PRN WHEEZING Amlodipine Besylate 10 mg 08/20/16 10:00 08/22/16 09:52 Norvasc - PO 10 mg DAILY IGGY Administration Ascorbic Acid 500 mg 08/20/16 10:00 08/22/16 09:52 Vitamin C - PO 500 mg DAILY IGGY Administration Doxazosin Mesylate 4 mg 08/20/16 10:00 08/22/16 09:57 Cardura - PO 4 mg DAILY IGGY Administration Duloxetine HCl 30 mg 08/20/16 10:00 08/22/16 09:54 Cymbalta - PO 30 mg DAILY IGGY Administration Ferrous Sulfate 325 mg 08/20/16 10:00 08/22/16 09:52 Feosol - PO 325 mg DAILY IGGY Administration Folic Acid 1 mg 08/20/16 10:00 08/22/16 09:52 Folic Acid - PO 1 mg DAILY IGGY Administration Insulin Aspart 1 vial 08/20/16 07:00 08/22/16 11:30 Novolog Vial Sliding Scale - SQ 4 units ACHS IGGY Administration Protocol Insulin Detemir 20 units 08/22/16 22:00 Levemir Vial SQ BID IGGY Mirtazapine 30 mg 08/20/16 22:00 08/21/16 22:05 Remeron - PO 30 mg HS IGGY Administration Oxycodone HCl 5 mg 08/20/16 22:42 08/22/16 09:52 Roxicodone - PO 5 mg Q6H PRN Administration PAIN Pantoprazole Sodium 20 mg 08/20/16 10:00 08/22/16 09:54 Protonix - PO 20 mg DAILY IGGY Administration Piperacillin Sod/Tazobactam Sod 3.375 gm 08/21/16 12:00 08/22/16 09:55 Zosyn 3.375gm Ivpb (Pre-Docked) IVPB 3.375 gm Q8H-IV IGGY Administration Protocol Pregabalin 100 mg 08/21/16 22:00 08/22/16 09:54 Lyrica - PO 100 mg BID IGGY Administration Sodium Bicarbonate 650 mg 08/22/16 13:00 08/22/16 13:53 Sodium Bicarbonate - PO 650 mg DAILY IGGY Administration Trazodone HCl 300 mg 08/20/16 22:00 08/21/16 22:05 Desyrel - PO 300 mg HS IGGY Administration Zinc Sulfate 220 mg 08/20/16 10:00 08/22/16 09:52 Orazinc - PO 220 mg DAILY IGGY Administration ASSESSMENT/PLAN: Head, Facial Bones, Cervical Spine CT: no intracranial/extracranial bleeding, no edema, no mass, no evidence of ischemia, + R supraorbital soft tissue swelling with laceration, no facial or spinal Fx MRI C-spine: prevertebral, retropharyngeal fluid collection/edema, likely non- infectious in etiology CXR: no acute pathology Echo: mild LVH ; LV mildy dilated ; preserved LVSF; no regional wall motin abnormalities; Mild to mod MR; Mod TR: RVSP 30-40mmhg; mild pulmonary hypertention; left and right atria mod dilated; mild aortic root dilation; small pericardial effusion <1cm MRI: left Foot + osteomyelitis of left foot, distal tibia, lateral and medial malleolus ASSESSMENT/PLAN: Pt is a 60 yo M with PMHx of DM, HTN, diabetic neuropathy with left foot amputation, and CKD who presents to the ED s/p syncopal episode from standing position with +LOC and +head trauma. Pt was found to have a Hgb of 3.7 and WBC of 26.1 upon presentation. #Syncope most likely related to anemia: -severe iron deficiency vs. hemolytic anemia vs. anemia of chronic disease (CKD ) vs. hematologic disorder (MDS/MM/leukemia) vs. GI loss -s/p 5 U PRBC; with adequate rise in hemoglobin -FOBT negative -Pt reports Hx of colonoscopy in December of 2015 with subsequent Bx of colonic polyps negative. Pt reports nml EGD done around the same time. Both performed by Dr. Etienne -low serum iron; low TIBC, low iron saturation, high ferritin -hematology workup #sepsis secondary to osteomyelitis: -wbc trending down -vitals stable -cont vanco, aosyn; as per ID -blood culture +beta hemolytic strep Group G -wound culture same -MRI +osteomyelitis; as above; Dr. Galvan consulted #Hyperkalemia; resolved -Medically treated with Ca gluconate, Insulin/D50, and kaexylate on 08/20 -Continue to trend -maintain low K diet #Acute on chronic renal failure: improved -Renal US showing bilateral echogenic kidneys : this relates to chronic kidney disease -can d/c fluids; -Renal consult #Retropharyngeal/prevertebral edema on MRI -MRI does not correlate to active infection -ENT consulted, does not feel this is an abscess; no intervention from him at this time # L LE swelling -Duplex US negative for DVT # Diabetes -levemir increased to 20 Ubid -BGM FEN: Fluids: po Electrolytes:trend Diet: diabetic; low K DVT ppx: scds Disposition: continue work up and management Visit type - Emergency Visit Emergency Visit: Yes ED Registration Date: 08/19/16 Care time: The patient presented to the Emergency Department on the above date and was hospitalized for further evaluation of their emergent condition. - New Patient This patient is new to me today: No - Critical Care Critical Care patient: Yes Total Critical Care Time (in minutes): 35 Critical Care Statement: The care of this patient involved high complexity decision making to prevent further life threatening deterioration of the patient 's condition and/or to evalute & treat vital organ system(s) failure or risk of failure.
[2016-08-22 15:50] LABS: MCH 22.6 pg (25.7-33.7); MCHC 30.7 g/dl (32.0-35.9); MEAN CELL VOLUME 73.7 fl (80-96); PLATELET COUNT 630 K/MM3 (134-434); RDW 26.5 % (11.9-15.9); WHITE BLOOD COUNT 15.1 K/mm3 (4.0-10.0)
--- NOTE | 2016-08-22 17:44 | OP ---
DATE OF OPERATION: DATE OF DICTATION: 08/22/2016 PROCEDURE: Incision and drainage of a diabetic foot abscess of the left foot, subfascial PREOPERATIVE DIAGNOSIS: Abscess. POSTOPERATIVE DIAGNOSIS: Abscess. ANESTHESIA: None given. (Patient insensate secondary to diabetic neuropathy.) CLINICAL INDICATION FOR THE PROCEDURE: Patient is well-known to this examiner, and this examiner performed transmetatarsal resection. Had a flap failure and was being treated for chronic diabetic foot ulceration that finally epithelized within the last 2-3 weeks. Patient was attended first while this examiner was on staff at the [facility], then consequently at the [facility]. Patient was known to have developed osteomyelitis of the metatarsals within the last few months, and out-patient bone biopsy indicated osteomyelitis. Patient was given oral antibiotics by this examiner, but failed on numerous requests for an infectious disease consult for long-term antimicrobial chemotherapy. Patient's plantar flap wound healed and felt no need for continued wound care or followup with the infectious disease service, and hence patient now has developed an abscess on the medial aspect of the left foot. Estimated blood loss was approximately 5 mL, and the narrative is as follows. PROCEDURE: After prepping the patient in the usual manner, this procedure was performed bed side. Exploration of the ulceration on the medial aspect of the foot revealed tracking on the dorsum of the foot, extending approximately 4-5 cm and distally approximately 2 cm. With the use of sharp dissection, incision was made through the ulceration to evacuate the purulent discharge. An incision was then made on the dorsum of the foot corresponding to the tracking and distally on the medial aspect of the foot, corresponding to the tracking. This did not proceed to the osseous level, but the tendon was visible. The tendon did not seem to be necrotic. The wound was then copiously flushed with sterile saline and then packed with gauze. NIURKA ARMSTRONG DPM RT/[id number]
--- NOTE | 2016-08-22 17:54 | PN ---
Teaching Attending Note Name of Resident: Sis Barrett ATTENDING PHYSICIAN STATEMENT I saw and evaluated the patient. I reviewed the resident's note and discussed the case with the resident. I agree with the resident's findings and plan as documented. SUBJECTIVE: OBJECTIVE: Vital Signs Period Temp Pulse Resp BP Sys/Gutierrez Pulse Ox Last 24 Hr 97.3 F-98.5 F 79-104 13-20 126-155/77-87 96-99 HEART: S1S2, RRR LUNGS: Clear ABDOMEN: Soft, non-tender, non-distended, normal BS EXTREMITIES: 2+ edmea LLE, 1+ edema RLE, s/p left TMA, s/p right 1st toe amputation ASSESSMENT AND PLAN: 60yo M with PMH HTH, DM, Peripheral neuropathy, OM of L foot s/p amputation presented to the ER and was admitted for further evaluation of their emergent condition 1. Symptomatic anemia- concern for MDS vs malignancy. with assoc neutrophilic leukocytosis and thrombophilia. s/p 2 unit PRBC will order additional 2 units of blood. trend H/H. no signs of active bleeding and had recent GI workup negative per pt (will call Dr Etienne office to obtain copies of reports). iron studies pending. retic count low. hematology consulted. will possible require bone marrow bx. will d/w with them about imaging 2. Hyperkalemia- likely in setting of FROYLAN. also elevated with blood transfusion. will call neprhology as if does not improve may need to consider for HD. s/p kayexylate given twice and treated iwth insulin and D50 3. Acute on CKD- call pMD for baseline Cr function. possible due to hypoperfusion. will d/w renal. 4. hyperphosphatemia- likely due to kidney failure. defer to nephro if phoslo should be started at this time 5. Syncope- likely due to symptomatic anemia. cardiac montoring to r/o arrythmia also in setting of hyperkalemia. s/p mechanical fall. spoke with radiology who sates no ligamentous tear noted but does have some swelling. will place soft collar at this time. official MRI report pending. check echo 6. B/L LE edema- doppler to r/o dvt 7. Fluctuant bullae on L medial malleolus- podiatry consulted 8. DVT ppx- high risk however in setting of low hgb and LE edema will not order prophylaxis at this time. will need PT eval prior to discharge
[2016-08-22] MEDS ORDERED: ALBUTEROL SO4 6.7 GM HFA INHALER IH PRN (19:12)
--- NOTE | 2016-08-22 21:22 | PN ---
Progress Note (short form) - Note Progress Note: Leukocytosis trending downward. Reviewed inmages and radiologists findings of the left foot magnetic resonance imaging which suggests extensive osteomyelitis of the residual amputated metatarsal bones that I resected as well the lesser and greater tarsal bones and probable extension to the distal leg bones. Partial thickness tear of the achilles is most likely a post operative sequela from the tendo calcaneal lengthening I performed post transmetatarsal resection several years ago.. Will assess the need for further debridement at dressing change with the goal of limb salvage given the apparent extensive osseous infectious process. In my opinion, more proximal resection of the foot (e.g. Chopart's type resection ) is doomed to failure and would result in a non functional foot. Fortunately patient is arterially competent which makes the prognosis for limb salvage a bit brighter.
[2016-08-22] MEDS: traZODone HCL 100 MG TABLET (FP) PO SCH (21:29)
[2016-08-22] MEDS: MIRTAZAPINE 15 MG TABLET (FP) PO SCH (21:30)
[2016-08-22] MEDS: INSULIN DETEMIR 100 UNITS/ML MDV SQ SCH (21:35)
--- NOTE | 2016-08-22 22:36 | PN ---
Progress Note (short form) - Note Progress Note: Patient seen and examined c/o rt. eye pain afvss Cor: RSR, No murmurs, No gallops Lungs: Clear to P&A Abd: Soft, Normal bowel sounds, No organomegaly Ext:No significant edema Abnormal Lab Results 08/19/16 08/20/16 08/22/16 23:37 17:10 05:20 WBC 15.5 H RBC 3.07 L Hgb 7.0 L Hct 22.9 L MCV 74.4 L MCHC 30.5 L RDW 25.6 H Plt Count 610 H MPV 6.9 L Haptoglobin 389 H INR Potassium Chloride Carbon Dioxide BUN Creatinine Random Glucose Calcium Phosphorus Crossmatch See Detail 08/22/16 08/22/16 08/22/16 05:20 08:40 15:40 WBC 15.1 H RBC 3.29 L Hgb 7.4 L Hct 24.2 L MCV 73.7 L MCHC 30.7 L RDW 26.5 H Plt Count 630 H MPV 7.0 L Haptoglobin INR 1.26 H Potassium 5.3 H Chloride 111 H Carbon Dioxide 19 L BUN 46 H Creatinine 2.2 H Random Glucose 190 H D Calcium 8.1 L Phosphorus 6.6 H Crossmatch Current Medications Generic Name Dose Route Start Last Admin Trade Name Freq PRN Reason Stop Dose Admin Albuterol Sulfate 2 puff 08/22/16 19:12 Ventolin Hfa Inhaler - IH Q4H PRN WHEEZING Amlodipine Besylate 10 mg 08/23/16 10:00 Norvasc - PO DAILY [facility] Ascorbic Acid 500 mg 08/23/16 10:00 Vitamin C - PO DAILY [facility] Doxazosin Mesylate 4 mg 08/23/16 10:00 Cardura - PO DAILY [facility] Duloxetine HCl 30 mg 08/23/16 10:00 Cymbalta - PO DAILY [facility] Ferrous Sulfate 325 mg 08/23/16 10:00 Feosol - PO DAILY [facility] Folic Acid 1 mg 08/23/16 10:00 Folic Acid - PO DAILY [facility] Insulin Aspart 1 vial 08/22/16 22:00 08/22/16 21:35 Novolog Vial Sliding Scale - SQ 10 units ACHS [facility] Administration Protocol Insulin Detemir 20 units 08/22/16 22:00 08/22/16 21:35 Levemir Vial SQ 20 units BID@0700,2200 [facility] Administration Mirtazapine 30 mg 08/22/16 22:00 08/22/16 21:30 Remeron - PO 30 mg HS [facility] Administration Oxycodone HCl 5 mg 08/22/16 19:12 Roxicodone - PO Q6H PRN PAIN Pantoprazole Sodium 20 mg 08/23/16 10:00 Protonix - PO DAILY [facility] Piperacillin Sod/Tazobactam Sod 3.375 gm 08/23/16 02:00 08/23/16 01:07 Zosyn 3.375gm Ivpb (Pre-Docked) IVPB 3.375 gm Q8H-IV [facility] Administration Protocol Pregabalin 100 mg 08/22/16 22:00 08/22/16 21:30 Lyrica - PO 100 mg BID [facility] Administration Sodium Bicarbonate 650 mg 08/23/16 10:00 Sodium Bicarbonate - PO DAILY [facility] Trazodone HCl 300 mg 08/22/16 22:00 08/22/16 21:29 Desyrel - PO 300 mg HS [facility] Administration Zinc Sulfate 220 mg 08/23/16 10:00 Orazinc - PO DAILY [facility] a/p 60 y/o male, with DM, h/o osteomyelitis, fell at assisted liveing, hit his face and neck. syncopal episode from profound anemia Microcytic anemia : Hgb 3.7 s/p PRBCs anemia of chronic disease from ongoing bacterremia EGD/colonoscopy few months ago were nl per patient, s/p polypectomies LDH--nl making hemolysis less likely Check B12/folate/TSH/fT4/protein studies Leukocytosis/thrombocytosis:? chronic reactive to bacteremia/ unlikely primary myeloproliferative disorder h/o fall Retropharyngeal collection--s/p fall and trauma to face/neck ENT consult also CT head neg. Reverse AG ratio : check protein studies. Need to r/o chronic inflammatory states vs plasma cell dyscraisa Rt. eye pain--ophtjhalmology consult. check CT rt. orbit w/o contrast
[2016-08-23] MEDS ORDERED: PIPERACILLIN/TAZOB 3.375 GM 50 ML IVPB ONE (00:52)
[2016-08-23] MEDS: PIPERACILLIN/TAZOB 3.375 GM/50 ML PRE-DOCKED IVPB SCH ×3 (01:07→17:30)
[2016-08-23] MEDS: INSULIN DETEMIR 100 UNITS/ML MDV SQ SCH ×2 (06:07→21:46)
[2016-08-23] MEDS: INSULIN SLIDING SCALE (NOVOLOG) 1 VIAL SQ SCH ×4 (06:07→21:46)
[2016-08-23 06:13] LABS: BASOPHIL 0.4 % (0-2.0); EOSINOPHIL 2.5 % (0-4.5); MCH 23.2 pg (25.7-33.7); MCHC 31.2 g/dl (32.0-35.9); MEAN CELL VOLUME 74.2 fl (80-96); NEUTROPHILS 80.7 % (42.8-82.8); PLATELET COUNT 619 K/MM3 (134-434); RDW 26.4 % (11.9-15.9); WHITE BLOOD COUNT 13.7 K/mm3 (4.0-10.0)
[2016-08-23 06:34] LABS: CALCIUM 8.3 mg/dL (8.5-10.1)
[2016-08-23 06:40] LABS: COCKROFT - GAULT 50.97; CREATININE 2.2 mg/dL (0.7-1.3); MAGNESIUM 1.8 mg/dL (1.8-2.4)
--- NOTE | 2016-08-23 07:23 | PN ---
Physical Exam: SUBJECTIVE: Patient seen and examined at bed side, still reports same neck pain. +BM yesterday H/H 6.6/21.1 patient eating two trays diabetic diet, Finger stick 355, received 10 units of humalog and 20 lantus at 10pm. blood sugar 41 5:30am patient reports taking lantus 18units at 6pm at home. Denies fevers, chills,N/V/D, PEREZ, CP, SOB, lightheadedness, diaphoresis, agitation, tremors OBJECTIVE: Vital Signs Period Temp Pulse Resp BP Sys/Gutierrez Pulse Ox Last 24 Hr 98 F-98.8 F 89-104 16-22 133-158/66-99 97-99 GENERAL: AAOx3 in NAD, sitting comfortably, tolerating dinner. HEAD: R forehead laceration, dry improving , decreased swelling of R periorbital soft tissue, bl scleral injection EYES: Pupils equal, round and reactive to light, extraocular movements intact, sclera anicteric, conjunctiva clear. No lid lag. EARS, NOSE, THROAT: Ears normal, nares patent, oropharynx clear without exudates. Moist mucous membranes. NECK: tender cervical spine, more range of motion, supple without lymphadenopathy. + JVD. LUNGS: CTABL No wheezes, and no crackles. No accessory muscle use. HEART: Regular rate and rhythm, normal S1 and S2, + systolic murmur grade 2 ABDOMEN: Soft, nontender, not distended, normoactive bowel sounds, no guarding, no rebound, no masses. No hepatomegaly or splenomegaly. : Serna in place, draining yellow urine MUSCULOSKELETAL: Normal range of motion at all joints. No bony deformities or tenderness. No CVA tenderness. LOWER EXTREMITIES: LLE 2+ pitting edema +calf tenderness +2 cm flucuant bullae on medial malleoulus transmetatarsal amputation. RLE 1+pitting edema multiple digit amputation. unable to palpate pulses. L dressing dry L LE dressing, with blood saturated iodoform packing in place, extension of incision to dorsum of the foot, NEUROLOGICAL: no facial asymmetry, Normal speech. loss of sensations below the knee. PSYCHIATRIC: Cooperative. Good eye contact. Appropriate mood and affect Laboratory Results - last 24 hr 08/19/16 08/20/16 08/21/16 23:37 17:10 08:56 WBC RBC Hgb Hct MCV MCHC RDW Plt Count MPV Neutrophils % Lymphocytes % Monocytes % Eosinophils % Basophils % Haptoglobin 389 H INR Sodium Potassium Chloride Carbon Dioxide Anion Gap BUN Creatinine POC Glucometer [phone] Random Glucose Calcium Phosphorus Magnesium Random Vancomycin Blood Type B POSITIVE Antibody Screen Negative Crossmatch See Detail 08/21/16 08/21/16 08/21/16 10:59 16:01 21:46 WBC RBC Hgb Hct MCV MCHC RDW Plt Count MPV Neutrophils % Lymphocytes % Monocytes % Eosinophils % Basophils % Haptoglobin INR Sodium Potassium Chloride Carbon Dioxide Anion Gap BUN Creatinine POC Glucometer 72.30185 130.84531 300.24140 Random Glucose Calcium Phosphorus Magnesium Random Vancomycin Blood Type Antibody Screen Crossmatch 08/22/16 08/22/16 08/22/16 05:20 05:20 05:40 WBC 15.5 H RBC 3.07 L Hgb 7.0 L Hct 22.9 L MCV 74.4 L MCHC 30.5 L RDW 25.6 H Plt Count 610 H MPV 6.9 L Neutrophils % Lymphocytes % Monocytes % Eosinophils % Basophils % Haptoglobin INR Sodium 139 Potassium 5.3 H Chloride 111 H Carbon Dioxide 19 L Anion Gap 9 BUN 46 H Creatinine 2.2 H POC Glucometer [phone] Random Glucose 190 H D Calcium 8.1 L Phosphorus 6.6 H Magnesium 1.8 Random Vancomycin Blood Type Antibody Screen Crossmatch 08/22/16 08/22/16 08/22/16 08:26 08:40 11:05 WBC RBC Hgb Hct MCV MCHC RDW Plt Count MPV Neutrophils % Lymphocytes % Monocytes % Eosinophils % Basophils % Haptoglobin INR 1.26 H Sodium Potassium Chloride Carbon Dioxide Anion Gap BUN Creatinine POC Glucometer 174.72497 239.67427 Random Glucose Calcium Phosphorus Magnesium Random Vancomycin Blood Type Antibody Screen Crossmatch 08/22/16 08/22/16 08/22/16 15:40 15:45 21:34 WBC 15.1 H RBC 3.29 L Hgb 7.4 L Hct 24.2 L MCV 73.7 L MCHC 30.7 L RDW 26.5 H Plt Count 630 H MPV 7.0 L Neutrophils % Lymphocytes % Monocytes % Eosinophils % Basophils % Haptoglobin INR Sodium Potassium Chloride Carbon Dioxide Anion Gap BUN Creatinine POC Glucometer 286.85274 355.69014 Random Glucose Calcium Phosphorus Magnesium Random Vancomycin Blood Type Antibody Screen Crossmatch 08/23/16 08/23/16 05:15 05:15 WBC 13.7 H RBC 2.84 L Hgb 6.6 L* D Hct 21.1 L MCV 74.2 L MCHC 31.2 L RDW 26.4 H Plt Count 619 H MPV 7.0 L Neutrophils % 80.7 Lymphocytes % 6.0 L Monocytes % 10.4 H Eosinophils % 2.5 D Basophils % 0.4 D Haptoglobin INR Sodium 141 Potassium 5.3 H Chloride 112 H Carbon Dioxide 20 L Anion Gap 9 BUN 45 H Creatinine 2.2 H POC Glucometer Random Glucose 41 L* D Calcium 8.3 L Phosphorus Magnesium 1.8 Random Vancomycin 17.885 Blood Type Antibody Screen Crossmatch Active Medications Generic Name Dose Route Start Last Admin Trade Name Freq PRN Reason Stop Dose Admin Albuterol Sulfate 2 puff 08/22/16 19:12 Ventolin Hfa Inhaler - IH Q4H PRN WHEEZING Amlodipine Besylate 10 mg 08/23/16 10:00 Norvasc - PO DAILY [facility] Ascorbic Acid 500 mg 08/23/16 10:00 Vitamin C - PO DAILY [facility] Doxazosin Mesylate 4 mg 08/23/16 10:00 Cardura - PO DAILY [facility] Duloxetine HCl 30 mg 08/23/16 10:00 Cymbalta - PO DAILY [facility] Ferrous Sulfate 325 mg 08/23/16 10:00 Feosol - PO DAILY [facility] Folic Acid 1 mg 08/23/16 10:00 Folic Acid - PO DAILY [facility] Insulin Aspart 1 vial 08/22/16 22:00 08/23/16 06:07 Novolog Vial Sliding Scale - SQ Not Given ACHS [facility] Protocol Insulin Detemir 20 units 08/22/16 22:00 08/23/16 06:07 Levemir Vial SQ Not Given BID@0700,2200 [facility] Mirtazapine 30 mg 08/22/16 22:00 08/22/16 21:30 Remeron - PO 30 mg HS [facility] Administration Oxycodone HCl 5 mg 08/22/16 19:12 Roxicodone - PO Q6H PRN PAIN Pantoprazole Sodium 20 mg 08/23/16 10:00 Protonix - PO DAILY [facility] Piperacillin Sod/Tazobactam Sod 3.375 gm 08/23/16 02:00 08/23/16 01:07 Zosyn 3.375gm Ivpb (Pre-Docked) IVPB 3.375 gm Q8H-IV [facility] Administration Protocol Pregabalin 100 mg 08/22/16 22:00 08/22/16 21:30 Lyrica - PO 100 mg BID [facility] Administration Sodium Bicarbonate 650 mg 08/23/16 10:00 Sodium Bicarbonate - PO DAILY [facility] Trazodone HCl 300 mg 08/22/16 22:00 08/22/16 21:29 Desyrel - PO 300 mg HS [facility] Administration Zinc Sulfate 220 mg 08/23/16 10:00 Orazinc - PO DAILY [facility] ASSESSMENT/PLAN: 60YM with PMH: HTN, DMII on insulin, PAD with multiple amputations, diabetic nephropathy presents to ED via EMS after an episode of syncope that occurred at the assisted living facility. +LOC, +head and neck Injury, On presentation Hgb of 3.7, WBC of 26.1, LDH wNL, K of 6.8, transfused 4 untits of blood, loss 32 lb /one year. sencope 2/2 Severe Anemia: - H/H decreased today, likely secondary to anemia of chronic disease 2/2 dm and Osteomylitis cross and match ordered one PRBC Osteomylitis of Left lower ext. continue Abx and management as per ID/Podiatry/Vascular Hypercalcemia: Corrected Ca++: 10.8 possible secondary to hypovolemia volume resuscitation Syncope -resolved, Most likely 2/2 Sx anemia -Workup and treat the underlying anemia Hyperkalemia: improving with Ca gluconate, Insulin/D50, and kaexylate. repeat bmp D/C Losartan low K diet Acute on chronic renal failure: improving, unkown base line( BUN/Cr 17/1.9 -2015) most likely secondary long standing HTN, DM, and prerenal azotemia. -good urine output -UPCR, -Renal and bladder US -Trend BUN/Cr Hyperphosphatemia- likely due to kidney failure. Defer to nephro if phoslo should be started at this time. Prevertebral, retropharyngeal fluid collection, edema likely of noninfectious etiology. The spinal canal is normal in diameter and accommodates normal appearing spinal cord that shows intrinsically normal signal. -Will order soft tissue cervical collar. -ENT consulted, does not feel this is an abscess; no intervention from him at this time. L LE swelling -Duplex US negative for DVT. L abcess s/p I&C s/p I and D MRI osteomylitis -ID on board IDDM: uncontrolled increased to 20 units BID in light of hypoglycemia over night. will defer to primary team BS management. -BGM Hypertension- Continue amlodipine and Cardura consider addition of BB (i.e. atenolol or labetalol if bp above goal ) eventually may require YASMIN/ARB but would be cautious at this time given hyperkalemia FEN -Continue IVF - low K diet diabetic -replete electrolyte as needed DVT prophylaxis-- SCDS, no anticoagulant at this time in light of hemostabilty. GI prophylaxis- protonix Dispo: transfer to floors, awaiting bed. Visit type - Emergency Visit Emergency Visit: Yes ED Registration Date: 08/19/16 Care time: The patient presented to the Emergency Department on the above date and was hospitalized for further evaluation of their emergent condition. - New Patient This patient is new to me today: No - Critical Care Critical Care patient: Yes Total Critical Care Time (in minutes): 43 Critical Care Statement: The care of this patient involved high complexity decision making to prevent further life threatening deterioration of the patient 's condition and/or to evalute & treat vital organ system(s) failure or risk of failure.
[2016-08-23] MEDS ORDERED: PT OWN MED DRAWER 7, Y5N ONE ×2 (08:00→08:49)
[2016-08-23] MEDS: FOLIC ACID 1 MG TABLET (FP) PO SCH (09:28)
[2016-08-23] MEDS: FERROUS SO4 325 MG TABLET (FP) PO SCH (09:28)
[2016-08-23] MEDS: DULoxetine HCL 30 MG CAPSULE.DR (FP) PO SCH (09:28)
[2016-08-23] MEDS: DOXAZOSIN MESYLATE 4 MG TABLET PO SCH (09:28)
[2016-08-23] MEDS: amLODIPine BESYLATE 10 MG TABLET (FP) PO SCH (09:29)
[2016-08-23] MEDS: ZINC SULFATE 220 MG CAPSULE (FP) PO SCH (09:29)
[2016-08-23] MEDS: PANTOPRAZOLE 20 MG TABLET (FP) PO SCH (09:29)
[2016-08-23] MEDS: PREGABALIN 50 MG CAPSULE PO SCH ×2 (09:29→21:46)
[2016-08-23] MEDS: ASCORBIC ACID 500 MG TABLET (FP) PO SCH (09:30)
[2016-08-23] MEDS: SODIUM BICARBONATE 650 MG TABLET PO SCH (09:30)
--- NOTE | 2016-08-23 10:13 | MSN ---
Progress Note (short form) - Note Progress Note: SUBJECTIVE: Pt seen and examined at bedside. GHISLAINE overnight. Episodes of hyperglycemia of 286 and 355 last night. Was given 10U Novolog and 20U Levemir at the same time (~5). Episodes of hypoglycemia of 74 and 69 at 0545 and 0700 respectively. Pt is not Sx with low BGL. Pt has been eating two dinner plates with snacks after dinner at night. Admits to neck pain, R eye pain and R eye photobia, - change in vision/blurriness/floaters. He is tolerating PO diet w /o difficulty swallowing. Denies fevers, chills, sweats, CP, palpitations, SOB, abdominal pain, nausea, or vomiting. Active Medications Generic Name Dose Route Start Last Admin Trade Name Freq PRN Reason Stop Dose Admin Albuterol Sulfate 2 puff 08/22/16 19:12 Ventolin Hfa Inhaler - IH Q4H PRN WHEEZING Amlodipine Besylate 10 mg 08/23/16 10:00 08/23/16 09:29 Norvasc - PO 10 mg DAILY IGGY Administration Ascorbic Acid 500 mg 08/23/16 10:00 08/23/16 09:30 Vitamin C - PO 500 mg DAILY IGGY Administration Doxazosin Mesylate 4 mg 08/23/16 10:00 08/23/16 09:28 Cardura - PO 4 mg DAILY IGGY Administration Duloxetine HCl 30 mg 08/23/16 10:00 08/23/16 09:28 Cymbalta - PO 30 mg DAILY IGGY Administration Ferrous Sulfate 325 mg 08/23/16 10:00 08/23/16 09:28 Feosol - PO 325 mg DAILY IGGY Administration Folic Acid 1 mg 08/23/16 10:00 08/23/16 09:28 Folic Acid - PO 1 mg DAILY IGGY Administration Insulin Aspart 1 vial 08/22/16 22:00 08/23/16 11:09 Novolog Vial Sliding Scale - SQ Not Given ACHS [facility] [place] Protocol Insulin Detemir 20 units 08/22/16 22:00 08/23/16 06:07 Levemir Vial SQ Not Given BID@0700,2200 IGGY Mirtazapine 30 mg 08/22/16 22:00 08/22/16 21:30 Remeron - PO 30 mg HS IGGY Administration Oxycodone HCl 5 mg 08/22/16 19:12 Roxicodone - PO Q6H PRN PAIN Pantoprazole Sodium 20 mg 08/23/16 10:00 08/23/16 09:29 Protonix - PO 20 mg DAILY IGGY Administration Piperacillin Sod/Tazobactam Sod 3.375 gm 08/23/16 02:00 08/23/16 09:30 Zosyn 3.375gm Ivpb (Pre-Docked) IVPB 3.375 gm Q8H-IV IGGY Administration Protocol Pregabalin 100 mg 08/22/16 22:00 08/23/16 09:29 Lyrica - PO 100 mg BID IGGY Administration Sodium Bicarbonate 650 mg 08/23/16 10:00 08/23/16 09:30 Sodium Bicarbonate - PO 650 mg DAILY IGGY Administration Trazodone HCl 300 mg 08/22/16 22:00 08/22/16 21:29 Desyrel - PO 300 mg HS IGGY Administration Zinc Sulfate 220 mg 08/23/16 10:00 08/23/16 09:29 Orazinc - PO 220 mg DAILY IGGY Administration OBJECTIVE: Vital Signs Period Temp Pulse Resp BP Sys/Gutierrez Pulse Ox Last 24 Hr 97.8 F-98.8 F 88-108 16-22 133-163/66-99 99-99 Intake & Output 08/20/16 08/21/16 08/22/16 08/23/16 23:59 23:59 23:59 23:59 Intake Total 2390 2780 2477 290 Output Total 900 3600 1800 800 Balance 1490 -820 677 -510 Weight 222 lb 10.67 oz 223 lb 1.725 oz 224 lb 4.8 oz 222 lb 8 oz GENERAL: AAOx3, appears drowsy, no respiratory distress HEAD: R forehead laceration approximated with sutures covered with band aid, decreased swelling of R periorbital soft tissue, BL scleral injection, no pharyngeal erythema or exudates noted NECK: No JVD, supple, no LAD in submandibular, cervical, or clavicular area, TTP in posterior L cervical paravertebral region LUNGS: Diminished breath sounds BL with very minimal BS over LLL, -crackles/ wheezing/rhonchi HEART: RRR with +S1/S2, no murmurs ABDOMEN: Soft, distended, no tenderness with deep palpation, NBS EXT: L LE more swollen than R lower extremity, no warmth BL, no erythema BL, L TMA and R great toe amputation, L dressing clean without saturation, R great toe amp site healed, L TMA amp site healed, pitting edema BL with L up to mid tibia and R up to ankle (less edema than yesterday), SCD intact on R LE, +2 DP on R LE, +2 radial BL NEURO: Normal speech, sensation intact distally to mid tibia on L LE and fully intact in R LE, motor grossly intact CBC WBC 13.7 K/mm3 (4.0-10.0) H 08/23/16 05:15 RBC 2.84 M/mm3 (4.00-5.60) L 08/23/16 05:15 Hgb 6.6 GM/dL (11.7-16.9) L* D 08/23/16 05:15 Hct 21.1 % (35.4-49) L 08/23/16 05:15 MCV 74.2 fl (80-96) L 08/23/16 05:15 MCHC 31.2 g/dl (32.0-35.9) L 08/23/16 05:15 RDW 26.4 % (11.9-15.9) H 08/23/16 05:15 Plt Count 619 K/MM3 (134-434) H 08/23/16 05:15 MPV 7.0 fl (7.5-11.1) L 08/23/16 05:15 Neutrophils % 80.7 % (42.8-82.8) 08/23/16 05:15 Lymphocytes % 6.0 % (8-40) L 08/23/16 05:15 Monocytes % 10.4 % (3.8-10.2) H 08/23/16 05:15 Eosinophils % 2.5 % (0-4.5) D 08/23/16 05:15 Basophils % 0.4 % (0-2.0) D 08/23/16 05:15 Band Neutrophils 3.0 % (0-10) 08/20/16 18:15 Differential Comment Manual diff done 08/19/16 20:40 Platelet Estimate Increased (NORMAL) 08/20/16 18:15 Platelet Comment No clumping noted 08/20/16 18:15 Polychromasia 1+ 08/20/16 18:15 Hypochromic-Microcytic 2+ 08/20/16 18:15 Poikilocytosis 1+ 08/20/16 18:15 Anisocytosis 3+ 08/20/16 18:15 Microcytosis 1+ 08/20/16 18:15 Target Cells 3+ 08/20/16 18:15 Schistocytes 1+ 08/19/16 20:40 Morphology Comment Slide scanned 08/19/16 20:40 Retic Count Cancelled 08/20/16 06:15 Haptoglobin 389 mg/dL (34-200) H 08/20/16 17:10 CMP Sodium 141 mmol/L (136-145) 08/23/16 05:15 Potassium 5.3 mmol/L (3.5-5.1) H 08/23/16 05:15 Chloride 112 mmol/L (98-107) H 08/23/16 05:15 Carbon Dioxide 20 mmol/L (21-32) L 08/23/16 05:15 Anion Gap 9 (8-16) 08/23/16 05:15 BUN 45 mg/dL (7-18) H 08/23/16 05:15 Creatinine 2.2 mg/dL (0.7-1.3) H 08/23/16 05:15 Creat Clearance w eGFR 26.48 (>60) 08/21/16 05:17 POC Glucometer 69.71739 UNITS (()) 08/23/16 06:58 Random Glucose 41 mg/dL (74-106) L* D 08/23/16 05:15 Lactic Acid 1.135 mmol/L (0.4-2.0) 08/19/16 22:20 Calcium 8.3 mg/dL (8.5-10.1) L 08/23/16 05:15 Phosphorus 5.7 mg/dL (2.5-4.9) H 08/23/16 05:15 Magnesium 1.8 mg/dL (1.8-2.4) 08/23/16 05:15 Iron 7 ug/dL (38-169) L 08/19/16 20:40 TIBC 130 ug/dL (250-450) L 08/19/16 20:40 Iron Saturation 5 % (15-55) L 08/19/16 20:40 Ferritin 398.205 ng/ml (16.4-293.9) H 08/19/16 20:40 Total Bilirubin 0.2 mg/dL (0.2-1.0) D 08/21/16 05:17 AST 13 U/L (15-37) L 08/21/16 05:17 ALT 8 U/L (12-78) L 08/21/16 05:17 Alkaline Phosphatase 124 U/L (45-117) H 08/21/16 05:17 LD Total 183 U/L (87-241) 08/19/16 20:40 Creatine Kinase 141 IU/L (39-308) 08/19/16 20:40 Troponin I < 0.02 ng/ml (0.00-0.05) 08/19/16 20:40 Total Protein 6.5 g/dl (6.4-8.2) 08/21/16 05:17 Albumin 1.4 g/dl (3.4-5.0) L 08/21/16 05:17 Vitamin B12 982 pg/ml (180-914) H D 08/20/16 17:10 Serum Folate 21 ng/ml (3.1-17.5) H 08/20/16 17:10 Microbiology 08/19/16 22:20 Blood Culture - Preliminary Blood - Peripheral Venous Staphylococcus Coagulase Neg Staphylococcus Coagulase Neg#2 Staphylococcus Coagulase Neg#3 08/22/16 05:35 Blood Culture - Preliminary Blood - Peripheral Venous NO GROWTH OBTAINED AFTER 24 HOURS, INCUBATION TO CONTINUE FOR 4 DAYS. 08/22/16 05:30 Blood Culture - Preliminary Blood - Peripheral Venous NO GROWTH OBTAINED AFTER 24 HOURS, INCUBATION TO CONTINUE FOR 4 DAYS. 08/21/16 03:00 Gram Stain - Final Abscess Wound Culture - Preliminary Beta Hem Streptococcus Group G 08/19/16 22:20 Blood Culture - Preliminary Blood - Peripheral Venous Beta Hem Streptococcus Group G Staphylococcus Coagulase Neg CXR (08/23/16): Progressive L lower lobe changes with increasing density consistent with infiltrate vs. effusion, possible RUL infiltrate developing CT Orbit (08/23/16): Normal orbits with nml globes, and retro-orbital soft tissues. No acute sinusitis A/P: Pt is a 60 yo M with PMHx of DM, HTN, diabetic neuropathy s/p BL foot amputations, and CKD, who presents to the ED s/p syncopal episode from standing position with +LOC and +head trauma. Pt was found to have a Hgb of 3.7 and WBC of 26.1 upon presentation. 1. Syncope -Most likely 2/2 Sx anemia -Workup and Tx of underlying anemia in progress -Pt is on telemetry to monitor for arrhythmic etiology of syncope -No abnormal events on telemetry thus far 2. Microcytic, hypochromic anemia -2/2 severe iron deficiency vs. hemolytic anemia vs. anemia of chronic disease/ inflammation vs. hematologic disorder (MDS/MM/leukemia) vs. GI loss vs. sepsis with subsequent depression of bone marrow response -CBC ordered by PCP in 02/2016 showed Hgb of 9.1. Hgb of 3.7 is unlikely to be acute since pt has been HD stable w/o hypotension or tachycardia -GI loss unlikely. FOBT negative. 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 Duodenal adenoma was not dysplastic. Unlikely pt developed GI mass in the interim. No need to repeat studies. GI signed off. -Hemolytic anemia unlikely. LDH and TBili are normal. Haptoglobin elevated. -Iron studies consistent with mixed severe Fe deficiency and anemia of chronic disease/inflammation (low serum Fe, low TIBC, low iron sat, elevated ferritin). Continue with iron supplement and investigation for malignancy. -Sepsis 2/2 chronic osteomyelitis cannot be ruled out, however, pt has been afebrile with no Hx of fevers and is HD stable. Pt did meet SIRS criteria (WBC, HR) on presentation. L foot xray (08/20/16) shows degenerative changes consistent with osteomyelitis when compared to previous films. MRI of L foot () consistent with osteomyelitis. Sepsis can suppress bone marrow's response to anemia accounting for the decreased retic count of <2. CHAKA negative for vegetations. -Hematology workup pending in order to rule out hematologic disorder as cause of anemia (MM, thalassemia, etc.). Hgb electrophoresis nml, making thalassemia unlikely. FU with study results. Hem-Onc on the case. -Repeat CBC shows Hgb of 6.6. Type and screen performed. PRBC ordered. 3. Osteomyelitis -Xrays of BL feet (08/20/16) showing degenerative changes to the L foot consistent with osteomyelitis. MRI results showing the same. -Dr. Galvan will continue to follow pt and should be back today. Wrote pt will most likely need further debridement with wound vac. - + blood Cx's - Group G beta hemolytic strep and CONS. Wound Cx is growing Group G beta hemolytic strep consistent with blood Cx. Osteomyelitis likely source for + blood Cx. Repeat blood Cx growing CONS. FU tissue GS and Cx from I& D. -Pt on empiric coverage with Vanc/Zosyn. Vanc level 18 today. ABX per ID. -FU tissue Bx performed by Dr. Galvan 4. Uncontrolled DM -BGL have not been controlled this admission with episodes of both hyper and hypoglycemia -Levemir was switched to 20U BID yesterday with Novolog SSI -Total Novolog coverage yesterday was 24U with night time dose of 20U Levemir -Pt had BGL of 355 at 2134 last night and was subsequently given 10U Novolog and 20U Levemir at the same time. Most likely responsible for hypoglycemia of 74 this morning. -Continue with Levemir 20U tonight -BGM 5. FROYLAN on CKD -Stable with decrease in Cr to 2.2 -Cr has been stable this admission -Renal US consistent with CKD -Etiology in question right now. Most likely 2/2 chronic DM -Non-oliguric -Trend BUN/Cr -PHx of negative KATHY, negative RF -Held ARB, avoid nephrotoxins and NSAIDs -DIESEL LOCOMOTIVE FIRER not necessary at this time -IVF stopped. Serna removed. Pt is not having trouble urinating. 6. Leukocytosis -Improving since beginning ABX -2/2 to sepsis from infectious (osteomyelitis) vs. malignancy vs. hematologic disorder -Continue to trend 7. Hyperphosphatemia -Persistent -2/2 FROYLAN on CKD -Trend 8. Hyperkalemia -Resolved -Given Ca gluconate, Insulin/D50, and kaexylate in ED -Low K diet -Hold ARB -Continue to trend with repeat BMPs 9. Retropharyngeal/prevertebral edema on MRI -2/2 trauma rule out retropharyngeal abscess -ENT consult appreciated: not suggestive of abscess or infection, no surgical intervention -If pt develops difficulty swallowing, have Mel Angela eval 10. L LE swelling -Duplex US negative for DVT -Most likely from 3rd spacing 2/2 low albumin level -Norvasc can be contributing to problem as well 11. FEN -IVF stopped. Pt tolerating PO with adequate fluid intake. No signs of dehydration. -Continue to monitor and correct electrolyte abnormalities -Diabetic and Low K diet 12. DVT ppx -Hold Heparin 2/2 low Hgb -SCDs 13. Dispo -Pt can be transferred out of ICU. Pt has Hx of MRSA. Put on contact precautions. LOS in question right now. Edvin Ken, MS3
[2016-08-23 10:16] LABS: Hgb A2 1.9 % (0.7-3.1)
[2016-08-23] MEDS ORDERED: FENTANYL PATCH WASTE TD PRN (12:20)
[2016-08-23] MEDS: fentaNYL 25mcg/hr PATCH.TD72 TD SCH (12:42)
--- NOTE | 2016-08-23 13:22 | PN ---
Progress Note (short form) - Note Progress Note: Renal Follow up for FROYLAN/CKD with Hyperkalemia Pt seen and examined in the ICU continues to have some pain in the face and foot denies sob, chest pain, abd pain, N/V/D good urine output Vital Signs Temperature 97.8 F 08/23/16 08:52 Pulse Rate 86 08/23/16 12:56 Respiratory Rate 18 08/23/16 12:56 Blood Pressure 156/84 08/23/16 12:56 O2 Sat by Pulse Oximetry (%) 96 08/23/16 10:23 Intake & Output 08/20/16 08/21/16 08/22/16 08/23/16 23:59 23:59 23:59 23:59 Intake Total 2390 2780 2477 290 Output Total 900 3600 1800 800 Balance 1490 -820 677 -510 Weight 222 lb 10.67 oz 223 lb 1.725 oz 224 lb 4.8 oz 222 lb 8 oz Gen: NAD, awake and alert, drowsy HEENT: No JVD CVS: RRR, No M/R Lungs: Dec BS at lung bases, no rales Abd: NT/ND Ext: 1+ edema in LE, Left TMA CBC, BMP 08/23/16 05:15 08/23/16 05:15 Laboratory Tests 08/23/16 08/23/16 05:15 05:15 Calcium 8.3 L Phosphorus 5.7 H Magnesium 1.8 Current Medications Albuterol Sulfate (Ventolin Hfa Inhaler -) 2 puff IH Q4H PRN PRN Reason: WHEEZING Amlodipine Besylate (Norvasc -) 10 mg PO DAILY [facility] Last Admin: 08/23/16 09:29 Dose: 10 mg Ascorbic Acid (Vitamin C -) 500 mg PO DAILY [facility] Last Admin: 08/23/16 09:30 Dose: 500 mg Doxazosin Mesylate (Cardura -) 4 mg PO DAILY [facility] Last Admin: 08/23/16 09:28 Dose: 4 mg Duloxetine HCl (Cymbalta -) 30 mg PO DAILY [facility] Last Admin: 08/23/16 09:28 Dose: 30 mg Fentanyl (Duragesic 25mcg Patch -) 1 patch TD Q72H [facility] Stop: 08/30/16 12:21 Last Admin: 08/23/16 12:42 Dose: 1 patch Ferrous Sulfate (Feosol -) 325 mg PO DAILY [facility] Last Admin: 08/23/16 09:28 Dose: 325 mg Folic Acid (Folic Acid -) 1 mg PO DAILY [facility] Last Admin: 08/23/16 09:28 Dose: 1 mg Insulin Aspart (Novolog Vial Sliding Scale -) 1 vial SQ ACHS [facility] PRN Reason: Protocol Last Admin: 08/23/16 11:09 Dose: Not Given Insulin Detemir (Levemir Vial) 20 units SQ BID@0700,2200 [facility] Last Admin: 08/23/16 06:07 Dose: Not Given Mirtazapine (Remeron -) 30 mg PO HS [facility] Last Admin: 08/22/16 21:30 Dose: 30 mg Miscellaneous (Duragesic Patch Waste) 1 each TD PRN PRN PRN Reason: PAIN Oxycodone HCl (Roxicodone -) 5 mg PO Q6H PRN PRN Reason: PAIN Pantoprazole Sodium (Protonix -) 20 mg PO DAILY [facility] Last Admin: 08/23/16 09:29 Dose: 20 mg Piperacillin Sod/Tazobactam Sod (Zosyn 3.375gm Ivpb (Pre-Docked)) 3.375 gm IVPB Q8H-IV IGGY PRN Reason: Protocol Last Admin: 08/23/16 09:30 Dose: 3.375 gm Pregabalin (Lyrica -) 100 mg PO BID [facility] Last Admin: 08/23/16 09:29 Dose: 100 mg Sodium Bicarbonate (Sodium Bicarbonate -) 650 mg PO DAILY [facility] Last Admin: 08/23/16 09:30 Dose: 650 mg Trazodone HCl (Desyrel -) 300 mg PO [facility] Last Admin: 08/22/16 21:29 Dose: 300 mg Zinc Sulfate (Orazinc -) 220 mg PO DAILY [facility] Last Admin: 08/23/16 09:29 Dose: 220 mg A/P 60 year old Gentleman with PMhx of CKD (baseline unclear), Hypertension, IDDM, PVD who presented s/p syncopal episode and found to have acute Anemia with Hgb of 3.7 and BUN/Cr of 41/2.7 and K of 6.8. #Hyperkalemia in setting of acute Anemia, renal hypoperfusion and ARB improved low k diet for the time being #FROYLAN vs. CKD Renal function stable good urine output no yasmin/arb at this time #Acute Anemia Transfuse as needed per primary team Heme following negative stool occult blood normal LDH #Hypertension Continue amlodipine and Cardura consider addition of BB (i.e. atenolol or labetalol if bp above goal ) eventually may require YASMIN/ARB but would be cautious at this time given hyperkalemia Miguel Jansen DO
--- NOTE | 2016-08-23 14:39 | PN ---
Teaching Attending Note Name of Resident: Addie Barriga ATTENDING PHYSICIAN STATEMENT I saw and evaluated the patient. I reviewed the resident's note and discussed the case with the resident. I agree with the resident's findings and plan as documented. SUBJECTIVE: Patient seen and examined in the ICU. No events overnight. Noted anemia on today's labs. No fevers or chills, no shortness of breath or chest pain. (+) Pain in the LLE CXR: No gross change OBJECTIVE: Intake & Output 08/20/16 08/21/16 08/22/16 08/23/16 23:59 23:59 23:59 23:59 Intake Total 2390 2780 2477 790 Output Total 900 3600 1800 1000 Balance 1490 -820 677 -210 Weight 222 lb 10.67 oz 223 lb 1.725 oz 224 lb 4.8 oz 222 lb 8 oz Last Vital Signs Temp Pulse Resp BP Pulse Ox 98 F 96 H 18 155/94 96 08/23/16 14:00 08/23/16 14:00 08/23/16 14:00 08/23/16 14:00 08/23/16 10:23 Active Medications Albuterol Sulfate (Ventolin Hfa Inhaler -) 2 puff IH Q4H PRN PRN Reason: WHEEZING Amlodipine Besylate (Norvasc -) 10 mg PO DAILY [facility] Last Admin: 08/23/16 09:29 Dose: 10 mg Ascorbic Acid (Vitamin C -) 500 mg PO DAILY [facility] Last Admin: 08/23/16 09:30 Dose: 500 mg Doxazosin Mesylate (Cardura -) 4 mg PO DAILY [facility] Last Admin: 08/23/16 09:28 Dose: 4 mg Duloxetine HCl (Cymbalta -) 30 mg PO DAILY [facility] Last Admin: 08/23/16 09:28 Dose: 30 mg Fentanyl (Duragesic 25mcg Patch -) 1 patch TD Q72H [facility] Stop: 08/30/16 12:21 Last Admin: 08/23/16 12:42 Dose: 1 patch Ferrous Sulfate (Feosol -) 325 mg PO DAILY [facility] Last Admin: 08/23/16 09:28 Dose: 325 mg Folic Acid (Folic Acid -) 1 mg PO DAILY [facility] Last Admin: 08/23/16 09:28 Dose: 1 mg Insulin Aspart (Novolog Vial Sliding Scale -) 1 vial SQ ACHS [facility] PRN Reason: Protocol Last Admin: 08/23/16 11:09 Dose: Not Given Insulin Detemir (Levemir Vial) 20 units SQ BID@0700,2200 [facility] Last Admin: 08/23/16 06:07 Dose: Not Given Mirtazapine (Remeron -) 30 mg PO HS [facility] Last Admin: 08/22/16 21:30 Dose: 30 mg Miscellaneous (Duragesic Patch Waste) 1 each TD PRN PRN PRN Reason: PAIN Oxycodone HCl (Roxicodone -) 5 mg PO Q6H PRN PRN Reason: PAIN Pantoprazole Sodium (Protonix -) 20 mg PO DAILY [facility] Last Admin: 08/23/16 09:29 Dose: 20 mg Piperacillin Sod/Tazobactam Sod (Zosyn 3.375gm Ivpb (Pre-Docked)) 3.375 gm IVPB Q8H-IV IGGY PRN Reason: Protocol Last Admin: 08/23/16 09:30 Dose: 3.375 gm Pregabalin (Lyrica -) 100 mg PO BID [facility] Last Admin: 08/23/16 09:29 Dose: 100 mg Sodium Bicarbonate (Sodium Bicarbonate -) 650 mg PO DAILY [facility] Last Admin: 08/23/16 09:30 Dose: 650 mg Trazodone HCl (Desyrel -) 300 mg PO HS [facility] Last Admin: 08/22/16 21:29 Dose: 300 mg Zinc Sulfate (Orazinc -) 220 mg PO DAILY [facility] Last Admin: 08/23/16 09:29 Dose: 220 mg Gen: NAD at rest Heart: RRR Lung: decreased breath sounds at the bases Abd: soft, nontender Ext: + edema, dressing mildly saturated Laboratory Results - last 24 hr 08/19/16 08/21/16 08/22/16 23:37 05:17 15:40 WBC 15.1 H RBC 3.29 L Hgb 7.4 L Hct 24.2 L MCV 73.7 L MCHC 30.7 L RDW 26.5 H Plt Count 630 H MPV 7.0 L Neutrophils % Lymphocytes % Monocytes % Eosinophils % Basophils % Hemoglobin A 98.1 H Hemoglobin A2 1.9 Hemoglobin C 0 Hemoglobin S 0 Variant Hemoglobin TNP Hemoglobin Interpret Maternal Rh 0 Hemoglobin Solubility Negative Sodium Potassium Chloride Carbon Dioxide Anion Gap BUN Creatinine POC Glucometer Random Glucose Calcium Phosphorus Magnesium Random Vancomycin Blood Type B POSITIVE Antibody Screen Negative Crossmatch See Detail 08/22/16 08/22/16 08/23/16 15:45 21:34 05:15 WBC RBC Hgb Hct MCV MCHC RDW Plt Count MPV Neutrophils % Lymphocytes % Monocytes % Eosinophils % Basophils % Hemoglobin A Hemoglobin A2 Hemoglobin C Hemoglobin S Variant Hemoglobin Hemoglobin Interpret Maternal Rh Hemoglobin Solubility Sodium Potassium Chloride Carbon Dioxide Anion Gap BUN Creatinine POC Glucometer 286.84835 355.55885 Random Glucose Calcium Phosphorus 5.7 H Magnesium Random Vancomycin Blood Type Antibody Screen Crossmatch 08/23/16 08/23/16 08/23/16 05:15 05:15 05:44 WBC 13.7 H RBC 2.84 L Hgb 6.6 L* D Hct 21.1 L MCV 74.2 L MCHC 31.2 L RDW 26.4 H Plt Count 619 H MPV 7.0 L Neutrophils % 80.7 Lymphocytes % 6.0 L Monocytes % 10.4 H Eosinophils % 2.5 D Basophils % 0.4 D Hemoglobin A Hemoglobin A2 Hemoglobin C Hemoglobin S Variant Hemoglobin Hemoglobin Interpret Maternal Rh Hemoglobin Solubility Sodium 141 Potassium 5.3 H Chloride 112 H Carbon Dioxide 20 L Anion Gap 9 BUN 45 H Creatinine 2.2 H POC Glucometer 74.95368 Random Glucose 41 L* D Calcium 8.3 L Phosphorus Magnesium 1.8 Random Vancomycin 17.885 Blood Type Antibody Screen Crossmatch 08/23/16 08/23/16 06:58 08:10 WBC RBC Hgb Hct MCV MCHC RDW Plt Count MPV Neutrophils % Lymphocytes % Monocytes % Eosinophils % Basophils % Hemoglobin A Hemoglobin A2 Hemoglobin C Hemoglobin S Variant Hemoglobin Hemoglobin Interpret Maternal Rh Hemoglobin Solubility Sodium Potassium Chloride Carbon Dioxide Anion Gap BUN Creatinine POC Glucometer 69.29531 Random Glucose Calcium Phosphorus Magnesium Random Vancomycin Blood Type B POSITIVE Antibody Screen Negative Crossmatch See Detail ASSESSMENT AND PLAN: Syncope Anemia Left foot ulcer infection s/p debridement Gram Positive Bacteremia Sepsis Acute on Chronic Renal Failure Hyperkalemia DM - Local wound care - ABX - Pain control - monitor urine output, creatinine - glucose monitoring - PO as tolerated - OOB to chair - Floor Critical care time spent in reviewing chart, evaluating patient and formulating plan [address] Butt
--- NOTE | 2016-08-23 15:28 | PATH ---
Surgical Pathology Report Patient Name: MARIAJOSE MALAVE [facility]. Rec. #: [id number] /Age/Gender: 1955 (Age: 60) / M Account: [id number] Location: ICU COPY CUTTER Taken: 08/21/2016 Received: 08/22/2016 Reported: 08/23/2016 Physicians: Aroldo Galvan M.D. Specimen(s) Received NECROTIC TISSUE LEFT FOOT Clinical History Positive MRI last year in fall for osteomyelitis, was on ciprofloxacin. Now has an abscess on left foot (medial aspect). Left foot abscess subfascial, cellulitis Final Diagnosis SKIN AND UNDERLYING SOFT TISSUE, LEFT FOOT, MEDIAL ASPECT, DEBRIDEMENT, INCISION AND DRAINAGE: FOCALLY ULCERATED SKIN AND UNDERLYING SOFT TISSUE WITH MARKED ACUTE AND CHRONIC INFLAMMATION, GRANULATION TISSUE FORMATION AND FIBROSIS CONSISTENT WITH ABSCESS. Electronically Signed Alex Sherwood M.D. Gross Description Received fresh, labeled with the patient's name and indicated on the requisition to be an abscess from the left medial foot, is a 3.5 x 1.0 cm rae-brown, elliptical, unoriented portion of skin excised to a depth of 0.8 cm. The epidermal surface is unremarkable. Also received in the same container is a 1.3 x 1.2 cm rae-brown, irregular, unoriented portion of skin excised to a depth of 0.8 cm. Additionally received within the container is a blood soaked portion of gauze. Hourly Sign Language Interpreter sections are submitted in one cassette. /08/22/2016 saudi/08/22/2016
--- NOTE | 2016-08-23 16:13 | PN ---
Physical Exam: SUBJECTIVE: Patient seen and examined. He is complaining of LLE pain and neck pain. He also has been having watery diarrhea since yesterday evening. OBJECTIVE: Vital Signs Period Temp Pulse Resp BP Sys/Gutierrez Pulse Ox Last 24 Hr 97.6 F-98.8 F 86-108 16-22 133-170/66-99 96-99 GENERAL: The patient is awake, alert, and fully oriented, in no acute distress. HEAD: Normal with no signs of trauma. EYES: PERRL, extraocular movements intact, sclera anicteric, conjunctiva clear. No ptosis. ENT: Ears normal, nares patent, oropharynx clear without exudates, moist mucous membranes. NECK: Trachea midline, full range of motion, supple. LUNGS: Breath sounds equal, clear to auscultation bilaterally, no wheezes, no crackles, no accessory muscle use. HEART: Regular rate and rhythm, S1, S2 without murmur, rub or gallop. ABDOMEN: Soft, nontender, nondistended, normoactive bowel sounds, no guarding, no rebound, no hepatosplenomegaly, no masses. EXTREMITIES: 1+ pulses, warm, 1+ peripheral edema in LE B/L, RLE: 1 toe amputated, deformities in second and fourth toe, no redness, swelling, LLE: amputated MTP, swollen, oozing wound and fluctuation on medial side of malleous , draining purulent pink/yellow fluid, no crepitus, tenderness to palpation. NEUROLOGICAL:No facial asymmetry. Normal speech, gait not observed. PSYCH: Normal mood, normal affect. SKIN: Warm, dry, normal turgor, no rashes or lesions noted Laboratory Results - last 24 hr 08/19/16 08/21/16 08/22/16 23:37 05:17 15:40 WBC 15.1 H RBC 3.29 L Hgb 7.4 L Hct 24.2 L MCV 73.7 L MCHC 30.7 L RDW 26.5 H Plt Count 630 H MPV 7.0 L Neutrophils % Lymphocytes % Monocytes % Eosinophils % Basophils % Hemoglobin A 98.1 H Hemoglobin A2 1.9 Hemoglobin C 0 Hemoglobin S 0 Variant Hemoglobin TNP Hemoglobin Interpret Maternal Rh 0 Hemoglobin Solubility Negative Sodium Potassium Chloride Carbon Dioxide Anion Gap BUN Creatinine POC Glucometer Random Glucose Calcium Phosphorus Magnesium Random Vancomycin Blood Type B POSITIVE Antibody Screen Negative Crossmatch See Detail 08/22/16 08/22/16 08/23/16 15:45 21:34 05:15 WBC RBC Hgb Hct MCV MCHC RDW Plt Count MPV Neutrophils % Lymphocytes % Monocytes % Eosinophils % Basophils % Hemoglobin A Hemoglobin A2 Hemoglobin C Hemoglobin S Variant Hemoglobin Hemoglobin Interpret Maternal Rh Hemoglobin Solubility Sodium Potassium Chloride Carbon Dioxide Anion Gap BUN Creatinine POC Glucometer [phone] Random Glucose Calcium Phosphorus 5.7 H Magnesium Random Vancomycin Blood Type Antibody Screen Crossmatch 08/23/16 08/23/16 08/23/16 05:15 05:15 05:44 WBC 13.7 H RBC 2.84 L Hgb 6.6 L* D Hct 21.1 L MCV 74.2 L MCHC 31.2 L RDW 26.4 H Plt Count 619 H MPV 7.0 L Neutrophils % 80.7 Lymphocytes % 6.0 L Monocytes % 10.4 H Eosinophils % 2.5 D Basophils % 0.4 D Hemoglobin A Hemoglobin A2 Hemoglobin C Hemoglobin S Variant Hemoglobin Hemoglobin Interpret Maternal Rh Hemoglobin Solubility Sodium 141 Potassium 5.3 H Chloride 112 H Carbon Dioxide 20 L Anion Gap 9 BUN 45 H Creatinine 2.2 H POC Glucometer [phone] Random Glucose 41 L* D Calcium 8.3 L Phosphorus Magnesium 1.8 Random Vancomycin 17.885 Blood Type Antibody Screen Crossmatch 08/23/16 08/23/16 06:58 08:10 WBC RBC Hgb Hct MCV MCHC RDW Plt Count MPV Neutrophils % Lymphocytes % Monocytes % Eosinophils % Basophils % Hemoglobin A Hemoglobin A2 Hemoglobin C Hemoglobin S Variant Hemoglobin Hemoglobin Interpret Maternal Rh Hemoglobin Solubility Sodium Potassium Chloride Carbon Dioxide Anion Gap BUN Creatinine POC Glucometer [phone] Random Glucose Calcium Phosphorus Magnesium Random Vancomycin Blood Type B POSITIVE Antibody Screen Negative Crossmatch See Detail Active Medications Generic Name Dose Route Start Last Admin Trade Name Freq PRN Reason Stop Dose Admin Albuterol Sulfate 2 puff 08/22/16 19:12 Ventolin Hfa Inhaler - IH Q4H PRN WHEEZING Amlodipine Besylate 10 mg 08/23/16 10:00 08/23/16 09:29 Norvasc - PO 10 mg DAILY IGGY Administration Ascorbic Acid 500 mg 08/23/16 10:00 08/23/16 09:30 Vitamin C - PO 500 mg DAILY IGGY Administration Doxazosin Mesylate 4 mg 08/23/16 10:00 08/23/16 09:28 Cardura - PO 4 mg DAILY IGGY Administration Duloxetine HCl 30 mg 08/23/16 10:00 08/23/16 09:28 Cymbalta - PO 30 mg DAILY IGGY Administration Fentanyl 1 patch 08/23/16 12:30 08/23/16 12:42 Duragesic 25mcg Patch - TD 08/30/16 12:21 1 patch Q72H IGGY Administration Ferrous Sulfate 325 mg 08/23/16 10:00 08/23/16 09:28 Feosol - PO 325 mg DAILY IGGY Administration Folic Acid 1 mg 08/23/16 10:00 08/23/16 09:28 Folic Acid - PO 1 mg DAILY IGGY Administration Insulin Aspart 1 vial 08/22/16 22:00 08/23/16 15:58 Novolog Vial Sliding Scale - SQ 4 units ACHS IGGY Administration Protocol Insulin Detemir 20 units 08/22/16 22:00 08/23/16 06:07 Levemir Vial SQ Not Given BID@0700,2200 IGGY Mirtazapine 30 mg 08/22/16 22:00 08/22/16 21:30 Remeron - PO 30 mg HS IGGY Administration Miscellaneous 1 each 08/23/16 12:20 Duragesic Patch Waste TD PRN PRN PAIN Oxycodone HCl 5 mg 08/22/16 19:12 Roxicodone - PO Q6H PRN PAIN Pantoprazole Sodium 20 mg 08/23/16 10:00 08/23/16 09:29 Protonix - PO 20 mg DAILY IGGY Administration Piperacillin Sod/Tazobactam Sod 3.375 gm 08/23/16 02:00 08/23/16 09:30 Zosyn 3.375gm Ivpb (Pre-Docked) IVPB 3.375 gm Q8H-IV IGGY Administration Protocol Pregabalin 100 mg 08/22/16 22:00 08/23/16 09:29 Lyrica - PO 100 mg BID IGGY Administration Sodium Bicarbonate 650 mg 08/23/16 10:00 08/23/16 09:30 Sodium Bicarbonate - PO 650 mg DAILY IGGY Administration Trazodone HCl 300 mg 08/22/16 22:00 08/22/16 21:29 Desyrel - PO 300 mg HS IGGY Administration Zinc Sulfate 220 mg 08/23/16 10:00 04/27/17 09:29 Orazinc - PO 220 mg DAILY IGGY Administration MRI C-spine: prevertebral, retropharyngeal fluid collection/edema, likely non- infectious in etiology MRI: left Foot + osteomyelitis of left foot, distal tibia, lateral and medial malleolus ASSESSMENT/PLAN: 60 year old male with a significant PMH of HTN, IDDM, PAD with multiple amputations, h/o of osteomyelitis in left foot, diabetic nephropathy presents to ED via EMS after an episode of syncope that occurred at the assisted living facility.The patient reports that he was in elevator when he had LOC. he states that he felt lightheaded before the syncopal episode. He was admitted to ICU. 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 ordered Prevertebral, retropharyngeal fluid collection, -edema likely of noninfectious etiology -ENT saw the pt , no further treatment recommended Severe Anemia Hypercalcemia Syncope Hyperkalemia Acute on chronic renal failure Hyperphosphatemia IDDM Hypertension Dispo: We will continue to follow the patient. Thank you for this consultative opportunity. Problem List - Problems (1) FROYLAN (acute kidney injury) Code(s): N17.9 - ACUTE KIDNEY FAILURE, UNSPECIFIED (2) Hyperkalemia Code(s): E87.5 - HYPERKALEMIA (3) Severe anemia Code(s): D64.9 - ANEMIA, UNSPECIFIED (4) Throat discomfort Code(s): R07.0 - PAIN IN THROAT (5) Edema of both legs Code(s): R60.0 - LOCALIZED EDEMA (6) S/P amputation Code(s): Z89.9 - ACQUIRED ABSENCE OF LIMB, UNSPECIFIED (7) Hyperglycemia Code(s): R73.9 - HYPERGLYCEMIA, UNSPECIFIED (8) Osteoarthritis Code(s): M19.90 - UNSPECIFIED OSTEOARTHRITIS, UNSPECIFIED SITE (9) Chronic pain Code(s): G89.29 - OTHER CHRONIC PAIN (10) 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 Code(s): E11.9 - TYPE 2 DIABETES MELLITUS WITHOUT COMPLICATIONS (11) Diabetic neuropathy Code(s): E11.40 - TYPE 2 DIABETES MELLITUS WITH DIABETIC NEUROPATHY, UNSP (12) Foot infection Code(s): L08.9 - LOCAL INFECTION OF THE SKIN AND SUBCUTANEOUS TISSUE, UNSP (13) GERD (gastroesophageal reflux disease) Code(s): K21.9 - GASTRO-ESOPHAGEAL REFLUX DISEASE WITHOUT ESOPHAGITIS (14) HTN (hypertension) Code(s): I10 - ESSENTIAL (PRIMARY) HYPERTENSION (15) Osteomyelitis Code(s): M86.9 - OSTEOMYELITIS, UNSPECIFIED Visit type - Emergency Visit Emergency Visit: Yes ED Registration Date: 08/19/16 Care time: The patient presented to the Emergency Department on the above date and was hospitalized for further evaluation of their emergent condition. - New Patient This patient is new to me today: No - Critical Care Critical Care patient: Yes Total Critical Care Time (in minutes): 40 Critical Care Statement: The care of this patient involved high complexity decision making to prevent further life threatening deterioration of the patient 's condition and/or to evalute & treat vital organ system(s) failure or risk of failure.
--- NOTE | 2016-08-23 16:21 | PN ---
Physical Exam: SUBJECTIVE: Patient seen and examined, complaint eye sensitivity to light. Blood glucose low this am. Patient has been eating 2-3 dinners; he was given 10units of novolog and 20 of levemir last night. Denies lightheadedness, chest pain, sob. OBJECTIVE: Vital Signs Period Temp Pulse Resp BP Sys/Gutierrez Pulse Ox Last 24 Hr 97.6 F-98.8 F 86-108 16-22 133-170/66-99 96-99 GENERAL: The patient is awake, alert, and fully oriented, in no acute distress. HEAD: Normal with no signs of trauma. EYES: PERRL, extraocular movements intact, sclera anicteric, conjunctiva clear. No ptosis. ENT: Ears normal, nares patent, oropharynx clear without exudates, moist mucous membranes. NECK: Trachea midline, full range of motion, supple. LUNGS: Breath sounds equal, clear to auscultation bilaterally, no wheezes, no crackles, no accessory muscle use. HEART: Regular rate and rhythm, S1, S2 without murmur, rub or gallop. ABDOMEN: Soft, nontender, nondistended, normoactive bowel sounds, no guarding, no rebound, no hepatosplenomegaly, no masses. EXTREMITIES: 2+ pulses, warm, well-perfused, no edema. NEUROLOGICAL: Cranial nerves II through XII grossly intact. Normal speech, gait not observed. PSYCH: Normal mood, normal affect. SKIN: Warm, dry, normal turgor, no rashes or lesions noted CBC, BMP 08/23/16 05:15 08/23/16 05:15 Active Medications Generic Name Dose Route Start Last Admin Trade Name Freq PRN Reason Stop Dose Admin Albuterol Sulfate 2 puff 08/22/16 19:12 Ventolin Hfa Inhaler - IH Q4H PRN WHEEZING Amlodipine Besylate 10 mg 08/23/16 10:00 08/23/16 09:29 Norvasc - PO 10 mg DAILY IGGY Administration Ascorbic Acid 500 mg 08/23/16 10:00 08/23/16 09:30 Vitamin C - PO 500 mg DAILY IGGY Administration Doxazosin Mesylate 4 mg 08/23/16 10:00 08/23/16 09:28 Cardura - PO 4 mg DAILY IGGY Administration Duloxetine HCl 30 mg 08/23/16 10:00 08/23/16 09:28 Cymbalta - PO 30 mg DAILY IGGY Administration Fentanyl 1 patch 08/23/16 12:30 08/23/16 12:42 Duragesic 25mcg Patch - TD 08/30/16 12:21 1 patch Q72H IGGY Administration Ferrous Sulfate 325 mg 08/23/16 10:00 08/23/16 09:28 Feosol - PO 325 mg DAILY IGGY Administration Folic Acid 1 mg 08/23/16 10:00 08/23/16 09:28 Folic Acid - PO 1 mg DAILY IGGY Administration Insulin Aspart 1 vial 08/22/16 22:00 08/23/16 15:58 Novolog Vial Sliding Scale - SQ 4 units ACHS IGGY Administration Protocol Insulin Detemir 20 units 08/22/16 22:00 08/23/16 06:07 Levemir Vial SQ Not Given BID@0700,2200 IGGY Mirtazapine 30 mg 08/22/16 22:00 08/22/16 21:30 Remeron - PO 30 mg HS IGGY Administration Miscellaneous 1 each 08/23/16 12:20 Duragesic Patch Waste TD PRN PRN PAIN Oxycodone HCl 5 mg 08/22/16 19:12 Roxicodone - PO Q6H PRN PAIN Pantoprazole Sodium 20 mg 08/23/16 10:00 08/23/16 09:29 Protonix - PO 20 mg DAILY IGGY Administration Piperacillin Sod/Tazobactam Sod 3.375 gm 08/23/16 02:00 08/23/16 09:30 Zosyn 3.375gm Ivpb (Pre-Docked) IVPB 3.375 gm Q8H-IV IGGY Administration Protocol Pregabalin 100 mg 08/22/16 22:00 08/23/16 09:29 Lyrica - PO 100 mg BID IGGY Administration Sodium Bicarbonate 650 mg 08/23/16 10:00 08/23/16 09:30 Sodium Bicarbonate - PO 650 mg DAILY IGGY Administration Trazodone HCl 300 mg 08/22/16 22:00 08/22/16 21:29 Desyrel - PO 300 mg HS IGGY Administration Zinc Sulfate 220 mg 08/23/16 10:00 08/23/16 09:29 Orazinc - PO 220 mg DAILY IGGY Administration Head, Facial Bones, Cervical Spine CT: no intracranial/extracranial bleeding, no edema, no mass, no evidence of ischemia, + R supraorbital soft tissue swelling with laceration, no facial or spinal Fx MRI C-spine: prevertebral, retropharyngeal fluid collection/edema, likely non- infectious in etiology CXR: no acute pathology Echo: mild LVH ; LV mildy dilated ; preserved LVSF; no regional wall motin abnormalities; Mild to mod MR; Mod TR: RVSP 30-40mmhg; mild pulmonary hypertention; left and right atria mod dilated; mild aortic root dilation; small pericardial effusion <1cm MRI: left Foot + osteomyelitis of left foot, distal tibia, lateral and medial malleolus ASSESSMENT/PLAN: Pt is a 60 yo M with PMHx of DM, HTN, diabetic neuropathy with left foot amputation, and CKD who presents to the ED s/p syncopal episode from standing position with +LOC and +head trauma. Pt was found to have a Hgb of 3.7 and WBC of 26.1 upon presentation. #Syncope most likely related to anemia: -most likey anemia of chronic disease (CKD) with anemia from acute infection from osteomyelitits -s/p 5 U PRBC; with adequate rise in hemoglobin ; needed another unit today due to drop in hemoglobin -FOBT negative -Pt reports Hx of colonoscopy in December of 2015 with subsequent Bx of colonic polyps negative. Pt reports nml EGD done around the same time. Both performed by Dr. Etienne -low serum iron; low TIBC, low iron saturation, high ferritin -hematology workup #sepsis secondary to osteomyelitis: -wbc trending down -vitals stable -cont vanco, aosyn; as per ID -blood culture +beta hemolytic strep Group G -wound culture same -MRI +osteomyelitis; as above; Dr. Galvan consulted #Hyperkalemia; resolved -Medically treated with Ca gluconate, Insulin/D50, and kaexylate on 08/20 -Continue to trend -maintain low K diet #Acute on chronic renal failure: improved -Renal US showing bilateral echogenic kidneys : this relates to chronic kidney disease -can d/c fluids; -Renal consult #Retropharyngeal/prevertebral edema on MRI -MRI does not correlate to active infection -ENT consulted, does not feel this is an abscess; no intervention from him at this time # L LE swelling -Duplex US negative for DVT # Diabetes -levemir increased to 20 Ubid -BGM FEN: Fluids: po Electrolytes:trend Diet: diabetic; low K DVT ppx: scds Disposition: continue work up and management Visit type - Emergency Visit Emergency Visit: Yes ED Registration Date: 08/19/16 Care time: The patient presented to the Emergency Department on the above date and was hospitalized for further evaluation of their emergent condition. - New Patient This patient is new to me today: No - Critical Care Critical Care patient: Yes Total Critical Care Time (in minutes): 35 Critical Care Statement: The care of this patient involved high complexity decision making to prevent further life threatening deterioration of the patient 's condition and/or to evalute & treat vital organ system(s) failure or risk of failure.
[2016-08-23] MEDS: oxyCODONE HCL 5 MG TABLET PO PRN (16:38)
--- NOTE | 2016-08-23 16:50 | PN ---
Teaching Attending Note Name of Resident: Shahnaz Almonte ATTENDING PHYSICIAN STATEMENT I saw and evaluated the patient. I reviewed the resident's note and discussed the case with the resident. I agree with the resident's findings and plan as documented. SUBJECTIVE: OBJECTIVE: ASSESSMENT AND PLAN: Polymicrobial bacteremia/ sepsis Foot abscess/ Osteomyelitis CKD Continue vancomycin/ zosyn
--- NOTE | 2016-08-23 16:51 | PN ---
Teaching Attending Note Name of Resident: Sis Barrett ATTENDING PHYSICIAN STATEMENT I saw and evaluated the patient. I reviewed the resident's note and discussed the case with the resident. I agree with the resident's findings and plan as documented. SUBJECTIVE: OBJECTIVE: Vital Signs Period Temp Pulse Resp BP Sys/Gutierrez Pulse Ox Last 24 Hr 97.6 F-98.8 F 86-108 16-22 133-170/66-99 96-99 ASSESSMENT AND PLAN:
[2016-08-23 19:27] LABS: MCH 23.5 pg (25.7-33.7); MCHC 31.5 g/dl (32.0-35.9); MEAN CELL VOLUME 74.5 fl (80-96); MEAN PLT VOLUME 6.9 fl (7.5-11.1); PLATELET COUNT 617 K/MM3 (134-434); RDW 26.1 % (11.9-15.9); WHITE BLOOD COUNT 13.5 K/mm3 (4.0-10.0)
--- NOTE | 2016-08-23 21:06 | PN ---
Progress Note, Physician Chief Complaint: F/U after incision and drainage of deep abscess of the medial aspect of the left foot and a magentic resonance imaging stufy highly suggestive of osteomyeltis of the residual metatarsals, greater and lesser tarsal bones and of the tibia and fibula. History of Present Illness: Patient with long history of osteomyelitis of the LLL is followed after incision and drainage of abscess and is to be evaluated for management of apparent osteomyelitis of all osseous structures of the foot and the distal leg - Current Medication List Current Medications: Active Medications Albuterol Sulfate (Ventolin Hfa Inhaler -) 2 puff IH Q4H PRN PRN Reason: WHEEZING Amlodipine Besylate (Norvasc -) 10 mg PO DAILY [facility] Last Admin: 08/23/16 09:29 Dose: 10 mg Ascorbic Acid (Vitamin C -) 500 mg PO DAILY [facility] Last Admin: 08/23/16 09:30 Dose: 500 mg Doxazosin Mesylate (Cardura -) 4 mg PO DAILY [facility] Last Admin: 08/23/16 09:28 Dose: 4 mg Duloxetine HCl (Cymbalta -) 30 mg PO DAILY [facility] Last Admin: 08/23/16 09:28 Dose: 30 mg Fentanyl (Duragesic 25mcg Patch -) 1 patch TD Q72H [facility] Stop: 08/30/16 12:21 Last Admin: 08/23/16 12:42 Dose: 1 patch Ferrous Sulfate (Feosol -) 325 mg PO DAILY [facility] Last Admin: 08/23/16 09:28 Dose: 325 mg Folic Acid (Folic Acid -) 1 mg PO DAILY [facility] Last Admin: 08/23/16 09:28 Dose: 1 mg Insulin Aspart (Novolog Vial Sliding Scale -) 1 vial SQ ACHS [facility] PRN Reason: Protocol Last Admin: 08/23/16 15:58 Dose: 4 units Insulin Detemir (Levemir Vial) 20 units SQ BID@0700,2200 [facility] Last Admin: 08/23/16 06:07 Dose: Not Given Mirtazapine (Remeron -) 30 mg PO HS [facility] Last Admin: 08/22/16 21:30 Dose: 30 mg Miscellaneous (Duragesic Patch Waste) 1 each TD PRN PRN PRN Reason: PAIN Oxycodone HCl (Roxicodone -) 5 mg PO Q6H PRN PRN Reason: PAIN Last Admin: 08/23/16 16:38 Dose: 5 mg Pantoprazole Sodium (Protonix -) 20 mg PO DAILY [facility] Last Admin: 08/23/16 09:29 Dose: 20 mg Piperacillin Sod/Tazobactam Sod (Zosyn 3.375gm Ivpb (Pre-Docked)) 3.375 gm IVPB Q8H-IV IGGY PRN Reason: Protocol Last Admin: 08/23/16 17:30 Dose: 3.375 gm Pregabalin (Lyrica -) 100 mg PO BID [facility] Last Admin: 08/23/16 09:29 Dose: 100 mg Sodium Bicarbonate (Sodium Bicarbonate -) 650 mg PO DAILY [facility] Last Admin: 08/23/16 09:30 Dose: 650 mg Trazodone HCl (Desyrel -) 300 mg PO HS [facility] Last Admin: 08/22/16 21:29 Dose: 300 mg Zinc Sulfate (Orazinc -) 220 mg PO DAILY [facility] Last Admin: 08/23/16 09:29 Dose: 220 mg - Objective Vital Signs: Vital Signs Temperature 36.6 C 08/23/16 17:28 Pulse Rate 86 08/23/16 17:28 Respiratory Rate 18 08/23/16 17:28 Blood Pressure 146/86 08/23/16 17:28 O2 Sat by Pulse Oximetry (%) 96 08/23/16 10:23 Eyes: Yes: WNL HENT: Yes: WNL Cardiovascular: Yes: Regular Rate and Rhythm Respiratory: Yes: Regular ...Rectal Exam: Yes: Deferred Extremities: Yes: Amputation, Other (left tranmetatarsal resection with leg edema) Edema: Yes (marked on the LLL) Edema: LLE: 3+, RLE: 1+ Peripheral Pulses: Left Doralis Pedis: 2+, Right Dorsalis Pedis: 2+ Integumentary: Yes: Incision (fibrous, clear of suppuration) Wound/Incision: Yes: Dressing Dry and Intact, Dressing Removed, Bleeding ( significant post op hemmorhage after I and D), Unapproximated Neurological: Yes: Loss of Sensation, Numbness, Paresthesia, Pre-Existing Deficit ...Motor Strength: WNL Psychiatric: Yes: Alert, Oriented Additional Findings/Remarks: Much of the malaise has resolved after the incision and drainage. Extensively reviewed the MRI report and the images thereof. Will need further debridement, preferably in the operating theatre, and bone biopsy of multiple sites to assess the offending organisms to initiate/continue the most appropriate chemotherapy. Of course there is the concern of the comorbidities (e.g. hyperkalemia and anemia) to make sure patient is medically styable and optimized for an OR procedure. Since patient is insensate, can theoretically be performed bedside.. On the basis of the radiographs taken on admission, it seems that the focus of the osseous infection is at the area of the previously incised abscess. Debridement to the osseous level withe antibiotic bead implantation is an option. Will wait to apply KCI wound VAC due to the need of osseous biopsy and debridement. Will possibly perform procedures Saturday depending on medical optimization. Total time spent on morgan, discussion with other providers, explanation to patient and management of the underlying illness (osteomyelitis) exceeded [address] Meyer believes there are no contrainications to the procedure on Saturday Labs: CBC, BMP 08/23/16 19:10 08/23/16 05:15 INR, PTT INR 1.26 (0.82-1.09) H 08/22/16 08:40 Fibrinogen 355.0 mg/dL (238-498) 08/20/16 17:10 - ....Imaging X-ray: Report Reviewed, Image Reviewed MRI: Report Reviewed, Image Reviewed
[2016-08-23] MEDS: MIRTAZAPINE 15 MG TABLET (FP) PO SCH (21:46)
[2016-08-23] MEDS: traZODone HCL 100 MG TABLET (FP) PO SCH (21:46)
[2016-08-24] MEDS: PIPERACILLIN/TAZOB 3.375 GM/50 ML PRE-DOCKED IVPB SCH ×2 (03:00→09:45)
[2016-08-24] MEDS: INSULIN DETEMIR 100 UNITS/ML MDV SQ SCH ×2 (05:59→21:12)
[2016-08-24] MEDS: INSULIN SLIDING SCALE (NOVOLOG) 1 VIAL SQ SCH ×4 (06:00→21:12)
[2016-08-24 06:32] LABS: BASOPHIL 0.5 % (0-2.0); EOSINOPHIL 3.3 % (0-4.5); MCH 23.9 pg (25.7-33.7); MCHC 31.8 g/dl (32.0-35.9); NEUTROPHILS 76.6 % (42.8-82.8); PLATELET COUNT 577 K/MM3 (134-434); RDW 25.8 % (11.9-15.9); WHITE BLOOD COUNT 12.5 K/mm3 (4.0-10.0)
[2016-08-24 06:48] LABS: ALBUMIN 1.5 g/dl (3.4-5.0); BILIRUBIN,TOTAL 0.2 mg/dL (0.2-1.0); CALCIUM 7.9 mg/dL (8.5-10.1); CREATININE 2.2 mg/dL (0.7-1.3); MAGNESIUM 1.6 mg/dL (1.8-2.4); PHOSPHOROUS 5.9 mg/dL (2.5-4.9); TOT PROT 6.6 g/dl (6.4-8.2)
[2016-08-24] MEDS ORDERED: PT OWN MED DRAWER 7, Y5N ONE ×3 (09:03→21:05)
[2016-08-24] MEDS: ASCORBIC ACID 500 MG TABLET (FP) PO SCH (09:35)
[2016-08-24] MEDS: SODIUM BICARBONATE 650 MG TABLET PO SCH (09:35)
[2016-08-24] MEDS: ZINC SULFATE 220 MG CAPSULE (FP) PO SCH (09:35)
[2016-08-24] MEDS: PREGABALIN 50 MG CAPSULE PO SCH ×2 (09:35→21:10)
[2016-08-24] MEDS: DULoxetine HCL 30 MG CAPSULE.DR (FP) PO SCH (09:35)
[2016-08-24] MEDS: FOLIC ACID 1 MG TABLET (FP) PO SCH (09:36)
[2016-08-24] MEDS: amLODIPine BESYLATE 10 MG TABLET (FP) PO SCH (09:36)
[2016-08-24] MEDS: FERROUS SO4 325 MG TABLET (FP) PO SCH (09:36)
[2016-08-24] MEDS: DOXAZOSIN MESYLATE 4 MG TABLET PO SCH (09:43)
[2016-08-24] MEDS: PANTOPRAZOLE 20 MG TABLET (FP) PO SCH (09:44)
[2016-08-24] MEDS: oxyCODONE HCL 5 MG TABLET PO PRN (09:58)
--- NOTE | 2016-08-24 10:09 | PN ---
Progress Note (short form) - Note Progress Note: awake and alert Vital Signs Period Temp Pulse Resp BP Sys/Gutierrez Pulse Ox Last 24 Hr 97.6 F-98 F 65-98 11-18 132-170/39-97 96-96 cor-rrr llungs clear abd soft, nt ext dressing bloody left foot CBC, BMP 08/24/16 05:15 08/24/16 05:15 Laboratory Tests 12/11/13 08/21/16 08/22/16 06:00 14:30 05:35 ESR 89 H Random Vancomycin 16.536 HIV 1&2 Antibody Screen Negative HIV P24 Antigen Negative 08/23/16 05:15 ESR Random Vancomycin 17.885 HIV 1&2 Antibody Screen HIV P24 Antigen Microbiology 08/22/16 05:35 Blood - Peripheral Venous Blood Culture - Preliminary NO GROWTH OBTAINED AFTER 48 HOURS, INCUBATION TO CONTINUE FOR 3 DAYS. 08/22/16 05:30 Blood - Peripheral Venous Blood Culture - Preliminary NO GROWTH OBTAINED AFTER 48 HOURS, INCUBATION TO CONTINUE FOR 3 DAYS. 08/21/16 21:20 Foot - Left Instep Gram Stain - Final 08/21/16 21:20 Foot - Left Instep Wound Culture - Preliminary Pending Organism 08/21/16 03:00 Abscess Gram Stain - Final 08/21/16 03:00 Abscess Wound Culture - Final Beta Hem Streptococcus Group G 08/19/16 22:20 Blood - Peripheral Venous Blood Culture - Preliminary Staphylococcus Coagulase Neg Staphylococcus Epidermidis Staphylococcus Coagulase Neg#3 08/19/16 22:20 Blood - Peripheral Venous Blood Culture - Preliminary Beta Hem Streptococcus Group G Staphylococcus Coagulase Neg 08/20/16 07:40 Urine - Urine - Catheterized Urine Culture - Final NO GROWTH OBTAINED Current Medications Albuterol Sulfate (Ventolin Hfa Inhaler -) 2 puff IH Q4H PRN PRN Reason: WHEEZING Amlodipine Besylate (Norvasc -) 10 mg PO DAILY [facility] Last Admin: 08/24/16 09:36 Dose: 10 mg Ascorbic Acid (Vitamin C -) 500 mg PO DAILY [facility] Last Admin: 08/24/16 09:35 Dose: 500 mg Doxazosin Mesylate (Cardura -) 4 mg PO DAILY [facility] Last Admin: 08/24/16 09:43 Dose: 4 mg Duloxetine HCl (Cymbalta -) 30 mg PO DAILY [facility] Last Admin: 08/24/16 09:35 Dose: 30 mg Fentanyl (Duragesic 25mcg Patch -) 1 patch TD Q72H [facility] Stop: 08/30/16 12:21 Last Admin: 08/23/16 12:42 Dose: 1 patch Ferrous Sulfate (Feosol -) 325 mg PO DAILY [facility] Last Admin: 08/24/16 09:36 Dose: 325 mg Folic Acid (Folic Acid -) 1 mg PO DAILY [facility] Last Admin: 08/24/16 09:36 Dose: 1 mg Insulin Aspart (Novolog Vial Sliding Scale -) 1 vial SQ ACHS [facility] PRN Reason: Protocol Last Admin: 08/24/16 06:00 Dose: Not Given Insulin Detemir (Levemir Vial) 20 units SQ BID@0700,2200 [facility] Last Admin: 08/24/16 05:59 Dose: 20 units Mirtazapine (Remeron -) 30 mg PO HS [facility] Last Admin: 08/23/16 21:46 Dose: 30 mg Miscellaneous (Duragesic Patch Waste) 1 each TD PRN PRN PRN Reason: PAIN Oxycodone HCl (Roxicodone -) 5 mg PO Q6H PRN PRN Reason: PAIN Last Admin: 08/24/16 09:58 Dose: 5 mg Pantoprazole Sodium (Protonix -) 20 mg PO DAILY [facility] Last Admin: 08/24/16 09:44 Dose: 20 mg Piperacillin Sod/Tazobactam Sod (Zosyn 3.375gm Ivpb (Pre-Docked)) 3.375 gm IVPB Q8H-IV [facility] PRN Reason: Protocol Last Admin: 08/24/16 09:45 Dose: 3.375 gm Pregabalin (Lyrica -) 100 mg PO BID [facility] Last Admin: 08/24/16 09:35 Dose: 100 mg Sodium Bicarbonate (Sodium Bicarbonate -) 650 mg PO DAILY [facility] Last Admin: 08/24/16 09:35 Dose: 650 mg Trazodone HCl (Desyrel -) 300 mg PO HS [facility] Last Admin: 08/23/16 21:46 Dose: 300 mg Zinc Sulfate (Orazinc -) 220 mg PO DAILY [facility] Last Admin: 08/24/16 09:35 Dose: 220 mg a/p foot abscess Osteomyelitis anemia feli/ckd diabetes for further debridement of foot per podiatry d/c zosyn unasyn vanco by levels for now pending final blood culture results
--- NOTE | 2016-08-24 11:38 | PN ---
Teaching Attending Note Name of Resident: Addie Barriga ATTENDING PHYSICIAN STATEMENT I saw and evaluated the patient. I reviewed the resident's note and discussed the case with the resident. I agree with the resident's findings and plan as documented. SUBJECTIVE: Patient seen and examined in the ICU. No events overnight. Noted anemia on today's labs. although no occult bleeding overnight. Reports today that he feels LUE & LLE weakness. Weakness only seems to be in the proximal LUE. (+) Pain in the LLE OBJECTIVE: Intake & Output 08/21/16 08/22/16 08/23/16 08/24/16 23:59 23:59 23:59 23:59 Intake Total 2780 2477 2590 50 Output Total 3600 1800 2800 1800 Balance -820 677 -210 -1750 Weight 223 lb 1.725 oz 224 lb 4.8 oz 222 lb 8 oz 222 lb 7.143 oz Last Vital Signs Temp Pulse Resp BP Pulse Ox 98 F 65 14 144/85 96 08/24/16 08:00 08/24/16 08:00 08/24/16 08:00 08/24/16 08:00 08/23/16 20:44 Active Medications Albuterol Sulfate (Ventolin Hfa Inhaler -) 2 puff IH Q4H PRN PRN Reason: WHEEZING Amlodipine Besylate (Norvasc -) 10 mg PO DAILY [facility] Last Admin: 08/24/16 09:36 Dose: 10 mg Ascorbic Acid (Vitamin C -) 500 mg PO DAILY [facility] Last Admin: 08/24/16 09:35 Dose: 500 mg Doxazosin Mesylate (Cardura -) 4 mg PO DAILY [facility] Last Admin: 08/24/16 09:43 Dose: 4 mg Duloxetine HCl (Cymbalta -) 30 mg PO DAILY [facility] Last Admin: 08/24/16 09:35 Dose: 30 mg Fentanyl (Duragesic 25mcg Patch -) 1 patch TD Q72H [facility] Stop: 08/30/16 12:21 Last Admin: 08/23/16 12:42 Dose: 1 patch Ferrous Sulfate (Feosol -) 325 mg PO DAILY [facility] Last Admin: 08/24/16 09:36 Dose: 325 mg Folic Acid (Folic Acid -) 1 mg PO DAILY [facility] Last Admin: 08/24/16 09:36 Dose: 1 mg Ampicillin Sodium/Sulbactam (Sodium 3 gm/ Sodium Chloride) 100 mls @ 200 mls/ hr IVPB Q8H-IV [facility] Insulin Aspart (Novolog Vial Sliding Scale -) 1 vial SQ ACHS [facility] PRN Reason: Protocol Last Admin: 08/24/16 11:29 Dose: 2 units Insulin Detemir (Levemir Vial) 20 units SQ BID@0700,2200 [facility] Last Admin: 08/24/16 05:59 Dose: 20 units Mirtazapine (Remeron -) 30 mg PO HS [facility] Last Admin: 08/23/16 21:46 Dose: 30 mg Miscellaneous (Duragesic Patch Waste) 1 each TD PRN PRN PRN Reason: PAIN Oxycodone HCl (Roxicodone -) 5 mg PO Q6H PRN PRN Reason: PAIN Last Admin: 08/24/16 09:58 Dose: 5 mg Pantoprazole Sodium (Protonix -) 20 mg PO DAILY [facility] Last Admin: 08/24/16 09:44 Dose: 20 mg Pregabalin (Lyrica -) 100 mg PO BID [facility] Last Admin: 08/24/16 09:35 Dose: 100 mg Sodium Bicarbonate (Sodium Bicarbonate -) 650 mg PO DAILY [facility] Last Admin: 08/24/16 09:35 Dose: 650 mg Trazodone HCl (Desyrel -) 300 mg PO HS [facility] Last Admin: 08/23/16 21:46 Dose: 300 mg Zinc Sulfate (Orazinc -) 220 mg PO DAILY [facility] Last Admin: 08/24/16 09:35 Dose: 220 mg Gen: NAD at rest Heart: RRR Lung: decreased breath sounds at the bases Abd: soft, nontender Ext: + edema, dressing mildly saturated Laboratory Results - last 24 hr 08/19/16 08/23/16 08/23/16 23:37 08:10 15:57 WBC RBC Hgb Hct MCV MCHC RDW Plt Count MPV Neutrophils % Lymphocytes % Monocytes % Eosinophils % Basophils % Sodium Potassium Chloride Carbon Dioxide Anion Gap BUN Creatinine Creat Clearance w eGFR POC Glucometer 232.53437 Random Glucose Calcium Phosphorus Magnesium Total Bilirubin AST ALT Alkaline Phosphatase Total Protein Albumin Blood Type B POSITIVE B POSITIVE Antibody Screen Negative Negative Crossmatch See Detail See Detail 08/23/16 08/23/16 08/24/16 19:10 21:25 05:15 WBC 13.5 H 12.5 H RBC 3.22 L 2.91 L Hgb 7.6 L D 6.9 L* Hct 24.0 L 21.8 L MCV 74.5 L 75.0 L MCHC 31.5 L 31.8 L RDW 26.1 H 25.8 H Plt Count 617 H 577 H MPV 6.9 L 7.0 L Neutrophils % 76.6 Lymphocytes % 9.9 D Monocytes % 9.7 Eosinophils % 3.3 Basophils % 0.5 Sodium Potassium Chloride Carbon Dioxide Anion Gap BUN Creatinine Creat Clearance w eGFR POC Glucometer [phone] Random Glucose Calcium Phosphorus Magnesium Total Bilirubin AST ALT Alkaline Phosphatase Total Protein Albumin Blood Type Antibody Screen Crossmatch 08/24/16 08/24/16 05:15 05:39 WBC RBC Hgb Hct MCV MCHC RDW Plt Count MPV Neutrophils % Lymphocytes % Monocytes % Eosinophils % Basophils % Sodium 142 Potassium 5.4 H Chloride 113 H Carbon Dioxide 22 Anion Gap 7 L BUN 43 H Creatinine 2.2 H Creat Clearance w eGFR 30.68 POC Glucometer [phone] Random Glucose 78 D Calcium 7.9 L Phosphorus 5.9 H Magnesium 1.6 L Total Bilirubin 0.2 AST 9 L D ALT 8 L Alkaline Phosphatase 119 H Total Protein 6.6 Albumin 1.5 L Blood Type Antibody Screen Crossmatch ASSESSMENT AND PLAN: Syncope Anemia Left foot ulcer infection s/p debridement Gram Positive Bacteremia Sepsis Acute on Chronic Renal Failure Hyperkalemia DM (?) Nerve impingement causing symptoms - Local wound care - ABX - Pain control - monitor urine output, creatinine - glucose monitoring - PO as tolerated - OOB to chair - Floor - PT/OT Critical care time spent in reviewing chart, evaluating patient and formulating plan [address] Butt
--- NOTE | 2016-08-24 13:04 | PN ---
Progress Note (short form) - Note Progress Note: Renal Follow up for FROYLAN/CKD with Hyperkalemia Pt seen and examined in the ICU reports feeling weak on the left upper extremity. Has had this feeling since admission. No slurred speech. No numbness. denies any pain or sob. No fever or chills. good urine output is very hungry Vital Signs Temperature 98 F 08/24/16 08:00 Pulse Rate 80 08/24/16 12:00 Respiratory Rate 18 08/24/16 12:00 Blood Pressure 141/80 08/24/16 12:00 O2 Sat by Pulse Oximetry (%) 98 08/24/16 12:00 Intake & Output 08/21/16 08/22/16 08/23/16 08/24/16 23:59 23:59 23:59 23:59 Intake Total 2780 2477 2590 50 Output Total 3600 1800 2800 1800 Balance -820 677 -210 -1750 Weight 223 lb 1.725 oz 224 lb 4.8 oz 222 lb 8 oz 222 lb 7.143 oz Gen: NAD, awake and alert, drowsy HEENT: No JVD CVS: RRR, No M/R Lungs: Dec BS at lung bases, no rales Abd: NT/ND Ext: 1+ edema in LE, Left TMA CBC, BMP 08/24/16 05:15 08/24/16 05:15 Laboratory Tests 08/24/16 05:15 Calcium 7.9 L Phosphorus 5.9 H Magnesium 1.6 L Albumin 1.5 L Current Medications Albuterol Sulfate (Ventolin Hfa Inhaler -) 2 puff IH Q4H PRN PRN Reason: WHEEZING Amlodipine Besylate (Norvasc -) 10 mg PO DAILY [facility] Last Admin: 08/24/16 09:36 Dose: 10 mg Ascorbic Acid (Vitamin C -) 500 mg PO DAILY [facility] Last Admin: 08/24/16 09:35 Dose: 500 mg Doxazosin Mesylate (Cardura -) 4 mg PO DAILY [facility] Last Admin: 08/24/16 09:43 Dose: 4 mg Duloxetine HCl (Cymbalta -) 30 mg PO DAILY [facility] Last Admin: 08/24/16 09:35 Dose: 30 mg Fentanyl (Duragesic 25mcg Patch -) 1 patch TD Q72H [facility] Stop: 08/30/16 12:21 Last Admin: 08/23/16 12:42 Dose: 1 patch Ferrous Sulfate (Feosol -) 325 mg PO DAILY [facility] Last Admin: 08/24/16 09:36 Dose: 325 mg Folic Acid (Folic Acid -) 1 mg PO DAILY [facility] Last Admin: 08/24/16 09:36 Dose: 1 mg Ampicillin Sodium/Sulbactam (Sodium 3 gm/ Sodium Chloride) 100 mls @ 200 mls/ hr IVPB Q8H-IV [facility] Insulin Aspart (Novolog Vial Sliding Scale -) 1 vial SQ ACHS [facility] PRN Reason: Protocol Last Admin: 08/24/16 11:29 Dose: 2 units Insulin Detemir (Levemir Vial) 20 units SQ BID@0700,2200 [facility] Last Admin: 08/24/16 05:59 Dose: 20 units Mirtazapine (Remeron -) 30 mg PO HS [facility] Last Admin: 08/23/16 21:46 Dose: 30 mg Miscellaneous (Duragesic Patch Waste) 1 each TD PRN PRN PRN Reason: PAIN Oxycodone HCl (Roxicodone -) 5 mg PO Q6H PRN PRN Reason: PAIN Last Admin: 08/24/16 09:58 Dose: 5 mg Pantoprazole Sodium (Protonix -) 20 mg PO DAILY [facility] Last Admin: 08/24/16 09:44 Dose: 20 mg Pregabalin (Lyrica -) 100 mg PO BID [facility] Last Admin: 08/24/16 09:35 Dose: 100 mg Sodium Bicarbonate (Sodium Bicarbonate -) 650 mg PO DAILY [facility] Last Admin: 08/24/16 09:35 Dose: 650 mg Trazodone HCl (Desyrel -) 300 mg PO HS [facility] Last Admin: 08/23/16 21:46 Dose: 300 mg Zinc Sulfate (Orazinc -) 220 mg PO DAILY [facility] Last Admin: 08/24/16 09:35 Dose: 220 mg A/P 60 year old Gentleman with PMhx of CKD (baseline unclear), Hypertension, IDDM, PVD who presented s/p syncopal episode and found to have acute Anemia with Hgb of 3.7 and BUN/Cr of 41/2.7 and K of 6.8. #Hyperkalemia in setting of acute Anemia, renal hypoperfusion and ARB K is high normal continue Low K diet given pt has CKD #FROYLAN vs. CKD Renal function stable good urine output no yasmin/arb at this time because of high K #Hyperphosphatemia start Renal diet may need binders if Phos remains > 5.5 #Acute Anemia Heme Following Transfuse as per primary team Will likely need ADRIAN given CKD iron saturation is very low ferritin is elevated but in setting of infection #Bactermia/Sepsis continue Abx as per ID Dose Vanco by levels #Hypertension Continue amlodipine and Cardura consider addition of BB (i.e. atenolol or labetalol if bp above goal ) eventually may require YASMIN/ARB but would be cautious at this time given hyperkalemia Miguel Jansen DO
--- NOTE | 2016-08-24 13:20 | PN ---
Physical Exam: SUBJECTIVE: Patient seen and examined. He is complaining of neck pain and left arm weakness. He denies dizziness, fever, chills. OBJECTIVE: Vital Signs Period Temp Pulse Resp BP Sys/Gutierrez Pulse Ox Last 24 Hr 97.6 F-98 F 65-96 11-18 132-158/39-97 96-98 GENERAL: The patient is awake, alert, and fully oriented, in no acute distress. HEAD: Normal with no signs of trauma. EYES: PERRL, extraocular movements intact, sclera anicteric, conjunctiva clear. No ptosis. ENT: Ears normal, nares patent, oropharynx clear without exudates, moist mucous membranes. NECK: Trachea midline, limited range of motion due to pain, supple. LUNGS: Breath sounds equal, clear to auscultation bilaterally, no wheezes, no crackles, no accessory muscle use. HEART: Regular rate and rhythm, S1, S2 without murmur, rub or gallop. ABDOMEN: Soft, nontender, nondistended, normoactive bowel sounds, no guarding, no rebound, no hepatosplenomegaly, no masses. EXTREMITIES: 1+ pulses, warm, 1+ peripheral edema in LE B/L, RLE: 1 toe amputated, deformities in second and fourth toe, no redness, swelling, edema, LLE: amputated MTP, swollen, oozing wound and fluctuation on medial side of malleous, draining purulent pink/yellow fluid, no crepitus, 2+ edema in LLE. NEUROLOGICAL:No facial asymmetry. Normal speech, gait not observed. PSYCH: Normal mood, normal affect. SKIN: Warm, dry, normal turgor, no rashes or lesions noted Laboratory Results - last 24 hr 08/19/16 08/23/16 08/23/16 23:37 08:10 15:57 WBC RBC Hgb Hct MCV MCHC RDW Plt Count MPV Neutrophils % Lymphocytes % Monocytes % Eosinophils % Basophils % Sodium Potassium Chloride Carbon Dioxide Anion Gap BUN Creatinine Creat Clearance w eGFR POC Glucometer 232.37261 Random Glucose Calcium Phosphorus Magnesium Total Bilirubin AST ALT Alkaline Phosphatase Total Protein Albumin Blood Type B POSITIVE B POSITIVE Antibody Screen Negative Negative Crossmatch See Detail See Detail 08/23/16 08/23/16 08/24/16 19:10 21:25 05:15 WBC 13.5 H 12.5 H RBC 3.22 L 2.91 L Hgb 7.6 L D 6.9 L* Hct 24.0 L 21.8 L MCV 74.5 L 75.0 L MCHC 31.5 L 31.8 L RDW 26.1 H 25.8 H Plt Count 617 H 577 H MPV 6.9 L 7.0 L Neutrophils % 76.6 Lymphocytes % 9.9 D Monocytes % 9.7 Eosinophils % 3.3 Basophils % 0.5 Sodium Potassium Chloride Carbon Dioxide Anion Gap BUN Creatinine Creat Clearance w eGFR POC Glucometer [phone] Random Glucose Calcium Phosphorus Magnesium Total Bilirubin AST ALT Alkaline Phosphatase Total Protein Albumin Blood Type Antibody Screen Crossmatch 08/24/16 08/24/16 08/24/16 05:15 05:39 11:27 WBC RBC Hgb Hct MCV MCHC RDW Plt Count MPV Neutrophils % Lymphocytes % Monocytes % Eosinophils % Basophils % Sodium 142 Potassium 5.4 H Chloride 113 H Carbon Dioxide 22 Anion Gap 7 L BUN 43 H Creatinine 2.2 H Creat Clearance w eGFR 30.68 POC Glucometer 127.17786 183.56342 Random Glucose 78 D Calcium 7.9 L Phosphorus 5.9 H Magnesium 1.6 L Total Bilirubin 0.2 AST 9 L D ALT 8 L Alkaline Phosphatase 119 H Total Protein 6.6 Albumin 1.5 L Blood Type Antibody Screen Crossmatch Active Medications Generic Name Dose Route Start Last Admin Trade Name Freq PRN Reason Stop Dose Admin Albuterol Sulfate 2 puff 08/22/16 19:12 Ventolin Hfa Inhaler - IH Q4H PRN WHEEZING Amlodipine Besylate 10 mg 08/23/16 10:00 08/24/16 09:36 Norvasc - PO 10 mg DAILY [facility] Administration Ascorbic Acid 500 mg 08/23/16 10:00 08/24/16 09:35 Vitamin C - PO 500 mg DAILY [facility] Administration Doxazosin Mesylate 4 mg 08/23/16 10:00 08/24/16 09:43 Cardura - PO 4 mg DAILY [facility] Administration Duloxetine HCl 30 mg 08/23/16 10:00 08/24/16 09:35 Cymbalta - PO 30 mg DAILY [facility] Administration Fentanyl 1 patch 08/23/16 12:30 08/23/16 12:42 Duragesic 25mcg Patch - TD 08/30/16 12:21 1 patch Q72H [facility] Administration Ferrous Sulfate 325 mg 08/23/16 10:00 08/24/16 09:36 Feosol - PO 325 mg DAILY [facility] Administration Folic Acid 1 mg 08/23/16 10:00 08/24/16 09:36 Folic Acid - PO 1 mg DAILY [facility] Administration Ampicillin Sodium/Sulbactam 100 mls @ 200 mls/hr 08/24/16 18:00 Sodium 3 gm/ Sodium Chloride IVPB Q8H-IV [facility] Insulin Aspart 1 vial 08/22/16 22:00 08/24/16 11:29 Novolog Vial Sliding Scale - SQ 2 units ACHS [facility] Administration Protocol Insulin Detemir 20 units 08/22/16 22:00 08/24/16 05:59 Levemir Vial SQ 20 units BID@0700,2200 [facility] Administration Mirtazapine 30 mg 08/22/16 22:00 08/23/16 21:46 Remeron - PO 30 mg HS [facility] Administration Miscellaneous 1 each 08/23/16 12:20 Duragesic Patch Waste TD PRN PRN PAIN Oxycodone HCl 5 mg 08/22/16 19:12 08/24/16 09:58 Roxicodone - PO 5 mg Q6H PRN Administration PAIN Pantoprazole Sodium 20 mg 08/23/16 10:00 08/24/16 09:44 Protonix - PO 20 mg DAILY [facility] Administration Pregabalin 100 mg 08/22/16 22:00 08/24/16 09:35 Lyrica - PO 100 mg BID [facility] Administration Sodium Bicarbonate 650 mg 08/23/16 10:00 08/24/16 09:35 Sodium Bicarbonate - PO 650 mg DAILY [facility] Administration Trazodone HCl 300 mg 08/22/16 22:00 08/23/16 21:46 Desyrel - PO 300 mg HS [facility] Administration Zinc Sulfate 220 mg 08/23/16 10:00 08/24/16 09:35 Orazinc - PO 220 mg DAILY [facility] Administration ASSESSMENT/PLAN: MRI C-spine: prevertebral, retropharyngeal fluid collection/edema, likely non- infectious in etiology MRI: left Foot + osteomyelitis of left foot, distal tibia, lateral and medial malleolus ASSESSMENT/PLAN: 60 year old male with a significant PMH of HTN, IDDM, PAD with multiple amputations, h/o of osteomyelitis in left foot, diabetic nephropathy presents to ED via EMS after an episode of syncope that occurred at the assisted living facility.The patient reports that he was in elevator when he had LOC. he states that he felt lightheaded before the syncopal episode. He was admitted to ICU. 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 not collected, diarrhea resolved Prevertebral, retropharyngeal fluid collection, -edema likely of noninfectious etiology -ENT saw the pt , no further treatment recommended Severe Anemia Hypercalcemia Syncope Hyperkalemia Acute on chronic renal failure Hyperphosphatemia IDDM Hypertension Dispo: We will continue to follow the patient. Thank you for this consultative opportunity. Problem List - Problems (1) FROYLAN (acute kidney injury) Code(s): N17.9 - ACUTE KIDNEY FAILURE, UNSPECIFIED (2) Hyperkalemia Code(s): E87.5 - HYPERKALEMIA (3) Severe anemia Code(s): D64.9 - ANEMIA, UNSPECIFIED (4) Throat discomfort Code(s): R07.0 - PAIN IN THROAT (5) Edema of both legs Code(s): R60.0 - LOCALIZED EDEMA (6) S/P amputation Code(s): Z89.9 - ACQUIRED ABSENCE OF LIMB, UNSPECIFIED (7) Hyperglycemia Code(s): R73.9 - HYPERGLYCEMIA, UNSPECIFIED (8) Osteoarthritis Code(s): M19.90 - UNSPECIFIED OSTEOARTHRITIS, UNSPECIFIED SITE (9) Chronic pain Code(s): G89.29 - OTHER CHRONIC PAIN (10) 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 Code(s): E11.9 - TYPE 2 DIABETES MELLITUS WITHOUT COMPLICATIONS (11) Diabetic neuropathy Code(s): E11.40 - TYPE 2 DIABETES MELLITUS WITH DIABETIC NEUROPATHY, UNSP (12) Foot infection Code(s): L08.9 - LOCAL INFECTION OF THE SKIN AND SUBCUTANEOUS TISSUE, UNSP (13) GERD (gastroesophageal reflux disease) Code(s): K21.9 - GASTRO-ESOPHAGEAL REFLUX DISEASE WITHOUT ESOPHAGITIS (14) HTN (hypertension) Code(s): I10 - ESSENTIAL (PRIMARY) HYPERTENSION (15) Osteomyelitis Code(s): M86.9 - OSTEOMYELITIS, UNSPECIFIED Visit type - Emergency Visit Emergency Visit: Yes ED Registration Date: 08/19/16 Care time: The patient presented to the Emergency Department on the above date and was hospitalized for further evaluation of their emergent condition. - New Patient This patient is new to me today: No - Critical Care Critical Care patient: Yes Total Critical Care Time (in minutes): 30 Critical Care Statement: The care of this patient involved high complexity decision making to prevent further life threatening deterioration of the patient 's condition and/or to evalute & treat vital organ system(s) failure or risk of failure.
--- NOTE | 2016-08-24 13:44 | MSN ---
Progress Note (short form) - Note Progress Note: SUBJECTIVE: Pt seen and examined at bedside. GHISLAINE overnight. No episodes of hyperglycemia this morning. Pt has improvement in R eye pain with a decrease in photosensitivity. Pt states his neck pain is about the same as yesterday with positional changes relieving the pain. Pt admits for the first time today that the L side of his body is weak. States this began Saturday after his fall. He is tolerating PO diet w/o difficulty swallowing. Denies fevers, chills, sweats, CP , palpitations, SOB, abdominal pain, nausea, or vomiting. Notes improvement in cough with less sputum production. Active Medications Generic Name Dose Route Start Last Admin Trade Name Freq PRN Reason Stop Dose Admin Albuterol Sulfate 2 puff 08/22/16 19:12 Ventolin Hfa Inhaler - IH Q4H PRN WHEEZING Amlodipine Besylate 10 mg 08/23/16 10:00 08/24/16 09:36 Norvasc - PO 10 mg DAILY IGGY Administration Ascorbic Acid 500 mg 08/23/16 10:00 08/24/16 09:35 Vitamin C - PO 500 mg DAILY IGGY Administration Doxazosin Mesylate 4 mg 08/23/16 10:00 08/24/16 09:43 Cardura - PO 4 mg DAILY IGGY Administration Duloxetine HCl 30 mg 08/23/16 10:00 08/24/16 09:35 Cymbalta - PO 30 mg DAILY IGGY Administration Fentanyl 1 patch 08/23/16 12:30 08/23/16 12:42 Duragesic 25mcg Patch - TD 08/30/16 12:21 1 patch Q72H IGGY Administration Ferrous Sulfate 325 mg 08/23/16 10:00 08/24/16 09:36 Feosol - PO 325 mg DAILY IGGY Administration Folic Acid 1 mg 08/23/16 10:00 08/24/16 09:36 Folic Acid - PO 1 mg DAILY IGGY Administration Ampicillin Sodium/Sulbactam 100 mls @ 200 mls/hr 08/24/16 18:00 Sodium 3 gm/ Sodium Chloride IVPB Q8H-IV IGGY Insulin Aspart 1 vial 08/22/16 22:00 08/24/16 11:29 Novolog Vial Sliding Scale - SQ 2 units ACHS IGGY Administration Protocol Insulin Detemir 20 units 08/22/16 22:00 08/24/16 05:59 Levemir Vial SQ 20 units BID@0700,2200 IGGY Administration Mirtazapine 30 mg 08/22/16 22:00 08/23/16 21:46 Remeron - PO 30 mg HS IGGY Administration Miscellaneous 1 each 08/23/16 12:20 Duragesic Patch Waste TD PRN PRN PAIN Oxycodone HCl 5 mg 08/22/16 19:12 08/24/16 09:58 Roxicodone - PO 5 mg Q6H PRN Administration PAIN Pantoprazole Sodium 20 mg 08/23/16 10:00 08/24/16 09:44 Protonix - PO 20 mg DAILY IGGY Administration Pregabalin 100 mg 08/22/16 22:00 08/24/16 09:35 Lyrica - PO 100 mg BID IGGY Administration Sodium Bicarbonate 650 mg 08/23/16 10:00 08/24/16 09:35 Sodium Bicarbonate - PO 650 mg DAILY IGGY Administration Trazodone HCl 300 mg 08/22/16 22:00 08/23/16 21:46 Desyrel - PO 300 mg HS IGGY Administration Zinc Sulfate 220 mg 08/23/16 10:00 08/24/16 09:35 Orazinc - PO 220 mg DAILY IGGY Administration OBJECTIVE: Vital Signs Period Temp Pulse Resp BP Sys/Gutierrez Pulse Ox Last 24 Hr 97.6 F-98 F 65-96 11-18 132-158/39-97 96-98 Intake & Output 08/21/16 08/22/16 08/23/16 08/24/16 23:59 23:59 23:59 23:59 Intake Total 2780 2477 2590 50 Output Total 3600 1800 2800 1800 Balance -820 677 -210 -1750 Weight 223 lb 1.725 oz 224 lb 4.8 oz 222 lb 8 oz 222 lb 7.143 oz GENERAL: AAOx3, appears drowsy, no respiratory distress HEAD: R forehead laceration approximated with sutures covered with band aid, decreased swelling of R periorbital soft tissue, BL scleral injection, no pharyngeal erythema or exudates noted, EOMI, pupils fixed and constricted at 2mm , pupils non reactive to light NECK: No JVD, supple, no LAD in submandibular, cervical, or clavicular area, TTP in posterior L cervical paravertebral region LUNGS: Diminished breath sounds BL with very minimal BS over LLL, -crackles/ wheezing/rhonchi HEART: RRR with +S1/S2, no murmurs ABDOMEN: Soft, distended, no tenderness with deep palpation, NBS EXT: L LE more swollen than R lower extremity, no warmth BL, no erythema BL, L TMA and R great toe amputation, L dressing saturated with SS fluid, wound packed with blood saturated iodoform, dressing changed, R great toe amp site healed, L TMA amp site healed, trace edema in R LE and pitting edema up to mid tibia in L LE, SCD intact on R LE, +2 DP on R LE, +2 radial BL NEURO: Normal speech, sensation intact distally to mid tibia on L LE and fully intact in R LE, strength 3/5 to L UE flexion, extension, abduction and 3/5 to L LE hip flexion, 5/5 strength in R UE and LE, CN2-12 intact with symmetric muscle strength in face, sensation decreased over L UE compared to R UE CBC WBC 12.5 K/mm3 (4.0-10.0) H 08/24/16 05:15 RBC 2.91 M/mm3 (4.00-5.60) L 08/24/16 05:15 Hgb 6.9 GM/dL (11.7-16.9) L* 08/24/16 05:15 Hct 21.8 % (35.4-49) L 08/24/16 05:15 MCV 75.0 fl (80-96) L 08/24/16 05:15 MCHC 31.8 g/dl (32.0-35.9) L 08/24/16 05:15 RDW 25.8 % (11.9-15.9) H 08/24/16 05:15 Plt Count 577 K/MM3 (134-434) H 08/24/16 05:15 MPV 7.0 fl (7.5-11.1) L 08/24/16 05:15 Neutrophils % 76.6 % (42.8-82.8) 08/24/16 05:15 Lymphocytes % 9.9 % (8-40) D 08/24/16 05:15 Monocytes % 9.7 % (3.8-10.2) 08/24/16 05:15 Eosinophils % 3.3 % (0-4.5) 08/24/16 05:15 Basophils % 0.5 % (0-2.0) 08/24/16 05:15 Band Neutrophils 3.0 % (0-10) 08/20/16 18:15 Differential Comment Manual diff done 08/19/16 20:40 Platelet Estimate Increased (NORMAL) 08/20/16 18:15 Platelet Comment No clumping noted 08/20/16 18:15 Polychromasia 1+ 08/20/16 18:15 Hypochromic-Microcytic 2+ 08/20/16 18:15 Poikilocytosis 1+ 08/20/16 18:15 Anisocytosis 3+ 08/20/16 18:15 Microcytosis 1+ 08/20/16 18:15 Target Cells 3+ 08/20/16 18:15 Schistocytes 1+ 08/19/16 20:40 Morphology Comment Slide scanned 08/19/16 20:40 Retic Count Cancelled 08/20/16 06:15 Hemoglobin A 98.1 % (94.0-98.0) H 08/21/16 05:17 Hemoglobin A2 1.9 % (0.7-3.1) 08/21/16 05:17 Hemoglobin C 0 % (0.0) 08/21/16 05:17 Hemoglobin S 0 % (0.0) 08/21/16 05:17 Variant Hemoglobin TNP 08/21/16 05:17 Hemoglobin Interpret (.) 08/21/16 05:17 Maternal Rh 0 % (0.0-2.0) 08/21/16 05:17 Hemoglobin Solubility Negative (Negative) 08/21/16 05:17 Haptoglobin 389 mg/dL (34-200) H 08/20/16 17:10 CMP Sodium 142 mmol/L (136-145) 08/24/16 05:15 Potassium 5.4 mmol/L (3.5-5.1) H 08/24/16 05:15 Chloride 113 mmol/L (98-107) H 08/24/16 05:15 Carbon Dioxide 22 mmol/L (21-32) 08/24/16 05:15 Anion Gap 7 (8-16) L 08/24/16 05:15 BUN 43 mg/dL (7-18) H 08/24/16 05:15 Creatinine 2.2 mg/dL (0.7-1.3) H 08/24/16 05:15 Creat Clearance w eGFR 30.68 (>60) 08/24/16 05:15 POC Glucometer 183.74917 UNITS (()) 08/24/16 11:27 Random Glucose 78 mg/dL (74-106) D 08/24/16 05:15 Lactic Acid 1.135 mmol/L (0.4-2.0) 08/19/16 22:20 Calcium 7.9 mg/dL (8.5-10.1) L 08/24/16 05:15 Phosphorus 5.9 mg/dL (2.5-4.9) H 08/24/16 05:15 Magnesium 1.6 mg/dL (1.8-2.4) L 08/24/16 05:15 Iron 7 ug/dL (38-169) L 08/19/16 20:40 TIBC 130 ug/dL (250-450) L 08/19/16 20:40 Iron Saturation 5 % (15-55) L 08/19/16 20:40 Ferritin 398.205 ng/ml (16.4-293.9) H 08/19/16 20:40 Total Bilirubin 0.2 mg/dL (0.2-1.0) 08/24/16 05:15 AST 9 U/L (15-37) L D 08/24/16 05:15 ALT 8 U/L (12-78) L 08/24/16 05:15 Alkaline Phosphatase 119 U/L (45-117) H 08/24/16 05:15 LD Total 183 U/L (87-241) 08/19/16 20:40 Creatine Kinase 141 IU/L (39-308) 08/19/16 20:40 Troponin I < 0.02 ng/ml (0.00-0.05) 08/19/16 20:40 Total Protein 6.6 g/dl (6.4-8.2) 08/24/16 05:15 Albumin 1.5 g/dl (3.4-5.0) L 08/24/16 05:15 Vitamin B12 982 pg/ml (180-914) H D 08/20/16 17:10 Serum Folate 21 ng/ml (3.1-17.5) H 08/20/16 17:10 Microbiology 08/19/16 22:20 Blood Culture - Final Blood - Peripheral Venous Beta Hem Streptococcus Group G Staphylococcus Epidermidis 08/19/16 22:20 Blood Culture - Preliminary Blood - Peripheral Venous Staphylococcus Epidermidis#2 Staphylococcus Epidermidis Staphylococcus Epidermidis#3 08/22/16 05:35 Blood Culture - Preliminary Blood - Peripheral Venous NO GROWTH OBTAINED AFTER 48 HOURS, INCUBATION TO CONTINUE FOR 3 DAYS. 08/22/16 05:30 Blood Culture - Preliminary Blood - Peripheral Venous NO GROWTH OBTAINED AFTER 48 HOURS, INCUBATION TO CONTINUE FOR 3 DAYS. 08/21/16 21:20 Gram Stain - Final Foot - Left Instep Wound Culture - Preliminary Pending Organism 08/21/16 03:00 Gram Stain - Final Abscess Wound Culture - Final Beta Hem Streptococcus Group G A/P: Pt is a 60 yo M with PMHx of DM, HTN, diabetic neuropathy s/p BL foot amputations, and CKD, who presents to the ED s/p syncopal episode from standing position with +LOC and +head trauma. Pt was found to have a Hgb of 3.7 and WBC of 26.1 upon presentation. 1. Syncope -Most likely 2/2 Sx anemia -Workup and Tx of underlying anemia in progress -Pt is on telemetry to monitor for arrhythmic etiology of syncope -No abnormal events on telemetry thus far 2. Microcytic, hypochromic anemia -2/2 severe iron deficiency vs. hemolytic anemia vs. anemia of chronic disease/ inflammation vs. hematologic disorder (MDS/MM/leukemia) vs. GI loss vs. sepsis with subsequent depression of bone marrow response -CBC ordered by PCP in 02/2016 showed Hgb of 9.1. Hgb of 3.7 is unlikely to be acute since pt has been HD stable w/o hypotension or tachycardia -GI loss unlikely. FOBT negative. 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 Duodenal adenoma was not dysplastic. Unlikely pt developed GI mass in the interim. No need to repeat studies. GI signed off. -Hemolytic anemia unlikely. LDH and TBili are normal. Haptoglobin elevated. -Iron studies consistent with mixed severe Fe deficiency and anemia of chronic disease/inflammation (low serum Fe, low TIBC, low iron sat, elevated ferritin). Continue with iron supplement and investigation for malignancy. -Sepsis 2/2 chronic osteomyelitis cannot be ruled out, however, pt has been afebrile with no Hx of fevers and is HD stable. Pt did meet SIRS criteria (WBC, HR) on presentation. L foot xray (08/20/16) shows degenerative changes consistent with osteomyelitis when compared to previous films. MRI of L foot () consistent with osteomyelitis. Sepsis can suppress bone marrow's response to anemia accounting for the decreased retic count of <2. CHAKA negative for vegetations. -Hematology workup pending in order to rule out hematologic disorder as cause of anemia (MM, thalassemia, etc.). Hgb electrophoresis nml, making thalassemia unlikely. FU with study results. Hem-Onc on the case. -Repeat CBC shows Hgb of 6.6. Type and screen performed. PRBC ordered. 3. Osteomyelitis -Xrays of BL feet (08/20/16) showing degenerative changes to the L foot consistent with osteomyelitis. MRI results showing the same with involvement of remaining L foot bones and distal tibia, and fibula -Dr. Galvan will continue to follow pt and should be back today. Wrote pt will most likely need further debridement with wound vac. Wants to take pt to OR on Saturday if the pt is medically stable - + blood Cx's - Group G beta hemolytic strep and CONS. Wound Cx is growing Group G beta hemolytic strep consistent with blood Cx. Osteomyelitis likely source for + blood Cx. Repeat blood Cx growing CONS. FU tissue GS and Cx from I& D. -Zosyn stopped. Per ID, will place on Unasyn and Vanco. -Order AM Vanc level -FU tissue Bx performed by Dr. Galvan 4. L sided weakness -Head CT s/p fall negative for infarct, mass, or bleed -Cannot rule out ischemic event with head CT since it was done before infarction would show -MRI 5. Uncontrolled DM -BGL have not been controlled this admission with episodes of both hyper and hypoglycemia -Levemir was switched to 20U BID yesterday with Novolog SSI -Total Novolog coverage yesterday was 24U with night time dose of 20U Levemir -Pt had BGL of 355 at 2134 last night and was subsequently given 10U Novolog and 20U Levemir at the same time. Most likely responsible for hypoglycemia of 74 this morning. -Continue with Levemir 20U tonight -BGM 6. Leukocytosis -Improving since beginning ABX -Most likely 2/2 to chronic osteomyelitis -Continue to trend 7. Hyperphosphatemia -Persistent -2/2 FROYLAN on CKD -Trend 8. FROYLAN on CKD -Stable with decrease in Cr to 2.2 -Cr has been stable this admission -Renal US consistent with CKD -Etiology in question right now. Most likely 2/2 chronic DM -Non-oliguric -Trend BUN/Cr -PHx of negative KATHY, negative RF -Held ARB, avoid nephrotoxins and NSAIDs -DEPUTY CORONER INVESTIGATOR not necessary at this time -IVF stopped. Serna removed. Pt is not having trouble urinating. 9. Hyperkalemia -Resolved -Given Ca gluconate, Insulin/D50, and kaexylate in ED -Low K diet -Hold ARB -Continue to trend with repeat BMPs 10. Retropharyngeal/prevertebral edema on MRI -2/2 trauma rule out retropharyngeal abscess -ENT consult appreciated: not suggestive of abscess or infection, no surgical intervention -If pt develops difficulty swallowing, have Mel Miller eval 11. L LE swelling -Improving -Duplex US negative for DVT -Most likely from 3rd spacing 2/2 low albumin level -Norvasc can be contributing to problem as well 12. FEN -IVF stopped. Pt tolerating PO with adequate fluid intake. No signs of dehydration. -Continue to monitor and correct electrolyte abnormalities -Diabetic and Low K diet 13. DVT ppx -Hold Heparin 2/2 low Hgb -SCDs 14. Dispo -Pt can be transferred out of ICU. Pt has Hx of MRSA. Put on contact precautions. LOS in question right now. Edvin Ken, MS3
--- NOTE | 2016-08-24 14:54 | PN ---
Physical Exam: SUBJECTIVE:Patient seen and examined at bed side, still reports same neck pain. Reports LUE weakness since the fall. H/H 7.6 --> 6.9- for transfuse one PRBC today Blood sugar still uncontrolled Denies fevers, chills,N/V/D, PEREZ, CP, SOB, lightheadedness, diaphoresis, agitation, tremors. podiatry recommends further debridement, preferably in the operating theatre, and bone biopsy of multiple sites to assess the offending organisms to initiate/ continue the most appropriate chemotherapy. awaiting hematology if in need of bone biopsy v iron supplements v epo OBJECTIVE: Vital Signs Period Temp Pulse Resp BP Sys/Gutierrez Pulse Ox Last 24 Hr 97.6 F-98 F 65-96 11-18 132-158/39-97 96-98 GENERAL: AAOx3 in NAD, sitting comfortably, tolerating dinner. HEAD: R forehead laceration, dry improving , decreased swelling of R periorbital soft tissue, bl scleral injection EYES: Pupils equal, round and reactive to light, extraocular movements intact, sclera anicteric, conjunctiva clear. No lid lag. EARS, NOSE, THROAT: Ears normal, nares patent, oropharynx clear without exudates. Moist mucous membranes. NECK: tender cervical spine, more range of motion, supple without lymphadenopathy. + JVD. LUNGS: CTABL No wheezes, and no crackles. No accessory muscle use. HEART: Regular rate and rhythm, normal S1 and S2, + systolic murmur grade 2 ABDOMEN: Soft, nontender, not distended, normoactive bowel sounds, no guarding, no rebound, no masses. No hepatomegaly or splenomegaly. : Serna in place, draining yellow urine MUSCULOSKELETAL: posterior cervical spine tenderness, Normal range of motion at all joints. No bony deformities or tenderness. No CVA tenderness. LOWER EXTREMITIES: LLE 2+ pitting edema +calf tenderness, on medial malleoulus transmetatarsal amputation. RLE 1+pitting edema multiple digit amputation. unable to palpate pulses. L dressing dry L LE dressing, with blood saturated iodoform packing in place, extension of incision to dorsum of the foot. NEUROLOGICAL: no facial asymmetry, Normal speech. loss of sensations below the knee. upper Left proximal weakness on abduction of arm over 30 degrees. bilateral hand strength and forearm intact. rgith shouler strength intact. PSYCHIATRIC: Cooperative. Good eye contact. Appropriate mood and affect Laboratory Results - last 24 hr 08/19/16 08/23/16 08/23/16 23:37 08:10 15:57 WBC RBC Hgb Hct MCV MCHC RDW Plt Count MPV Neutrophils % Lymphocytes % Monocytes % Eosinophils % Basophils % Sodium Potassium Chloride Carbon Dioxide Anion Gap BUN Creatinine Creat Clearance w eGFR POC Glucometer 232.96914 Random Glucose Calcium Phosphorus Magnesium Total Bilirubin AST ALT Alkaline Phosphatase Total Protein Albumin Blood Type B POSITIVE B POSITIVE Antibody Screen Negative Negative Crossmatch See Detail See Detail 08/23/16 08/23/16 08/24/16 19:10 21:25 05:15 WBC 13.5 H 12.5 H RBC 3.22 L 2.91 L Hgb 7.6 L D 6.9 L* Hct 24.0 L 21.8 L MCV 74.5 L 75.0 L MCHC 31.5 L 31.8 L RDW 26.1 H 25.8 H Plt Count 617 H 577 H MPV 6.9 L 7.0 L Neutrophils % 76.6 Lymphocytes % 9.9 D Monocytes % 9.7 Eosinophils % 3.3 Basophils % 0.5 Sodium Potassium Chloride Carbon Dioxide Anion Gap BUN Creatinine Creat Clearance w eGFR POC Glucometer 272.74446 Random Glucose Calcium Phosphorus Magnesium Total Bilirubin AST ALT Alkaline Phosphatase Total Protein Albumin Blood Type Antibody Screen Crossmatch 08/24/16 08/24/16 08/24/16 05:15 05:39 11:27 WBC RBC Hgb Hct MCV MCHC RDW Plt Count MPV Neutrophils % Lymphocytes % Monocytes % Eosinophils % Basophils % Sodium 142 Potassium 5.4 H Chloride 113 H Carbon Dioxide 22 Anion Gap 7 L BUN 43 H Creatinine 2.2 H Creat Clearance w eGFR 30.68 POC Glucometer 127.69980 183.89682 Random Glucose 78 D Calcium 7.9 L Phosphorus 5.9 H Magnesium 1.6 L Total Bilirubin 0.2 AST 9 L D ALT 8 L Alkaline Phosphatase 119 H Total Protein 6.6 Albumin 1.5 L Blood Type Antibody Screen Crossmatch Active Medications Generic Name Dose Route Start Last Admin Trade Name Freq PRN Reason Stop Dose Admin Albuterol Sulfate 2 puff 08/22/16 19:12 Ventolin Hfa Inhaler - IH Q4H PRN WHEEZING Amlodipine Besylate 10 mg 08/23/16 10:00 08/24/16 09:36 Norvasc - PO 10 mg DAILY IGGY Administration Ascorbic Acid 500 mg 08/23/16 10:00 08/24/16 09:35 Vitamin C - PO 500 mg DAILY IGGY Administration Doxazosin Mesylate 4 mg 08/23/16 10:00 08/24/16 09:43 Cardura - PO 4 mg DAILY IGGY Administration Duloxetine HCl 30 mg 08/23/16 10:00 08/24/16 09:35 Cymbalta - PO 30 mg DAILY IGGY Administration Fentanyl 1 patch 08/23/16 12:30 08/23/16 12:42 Duragesic 25mcg Patch - TD 08/30/16 12:21 1 patch Q72H IGGY Administration Ferrous Sulfate 325 mg 08/23/16 10:00 08/24/16 09:36 Feosol - PO 325 mg DAILY IGGY Administration Folic Acid 1 mg 08/23/16 10:00 08/24/16 09:36 Folic Acid - PO 1 mg DAILY IGGY Administration Ampicillin Sodium/Sulbactam 100 mls @ 200 mls/hr 08/24/16 18:00 Sodium 3 gm/ Sodium Chloride IVPB Q8H-IV IGGY Insulin Aspart 1 vial 08/22/16 22:00 08/24/16 11:29 Novolog Vial Sliding Scale - SQ 2 units ACHS IGGY Administration Protocol Insulin Detemir 20 units 08/22/16 22:00 08/24/16 05:59 Levemir Vial SQ 20 units BID@0700,2200 IGGY Administration Mirtazapine 30 mg 08/22/16 22:00 08/23/16 21:46 Remeron - PO 30 mg HS IGGY Administration Miscellaneous 1 each 08/23/16 12:20 Duragesic Patch Waste TD PRN PRN PAIN Oxycodone HCl 5 mg 08/22/16 19:12 08/24/16 09:58 Roxicodone - PO 5 mg Q6H PRN Administration PAIN Pantoprazole Sodium 20 mg 08/23/16 10:00 08/24/16 09:44 Protonix - PO 20 mg DAILY IGGY Administration Pregabalin 100 mg 08/22/16 22:00 08/24/16 09:35 Lyrica - PO 100 mg BID IGGY Administration Sodium Bicarbonate 650 mg 08/23/16 10:00 08/24/16 09:35 Sodium Bicarbonate - PO 650 mg DAILY IGGY Administration Trazodone HCl 300 mg 08/22/16 22:00 08/23/16 21:46 Desyrel - PO 300 mg HS IGGY Administration Zinc Sulfate 220 mg 08/23/16 10:00 08/24/16 09:35 Orazinc - PO 220 mg DAILY IGGY Administration ASSESSMENT/PLAN: 60YM with PMH: HTN, DMII on insulin, PAD with multiple amputations, diabetic nephropathy presents to ED via EMS after an episode of syncope that occurred at the assisted living facility. +LOC, +head and neck Injury, On presentation Hgb of 3.7, WBC of 26.1, LDH wNL, K of 6.8, transfused 4 untits of blood, loss 32 lb /one year. sencope 2/2 Severe Anemia: - H/H decreased today, likely secondary to anemia of chronic disease 2/2 dm and Osteomylitis radiolgy iron deposite in bone awaiting hemtatology if in need of bone biopsy v iron supplements v epo cross and match ordered one PRBC sever sepsis; Osteomylitis of Left lower ext. Gram Positive Bacteremia Podiatry for further debridement of foot d/c zosyn unasyn f/u blood cultures Right upper proximal: possibly to nerve impingement from fall. pain comntol r/o stoke MRi head Syncope -resolved, Most likely 2/2 Sx anemia -Workup and treat the underlying anemia Hyperkalemia: improving with Ca gluconate, Insulin/D50, and kaexylate. repeat bmp D/C Losartan low K diet Acute on chronic renal failure: improving, unkown base line( BUN/Cr 17/1.9 -2015) most likely secondary long standing HTN, DM, and prerenal azotemia. -good urine output -UPCR, -Renal and bladder US -Trend BUN/Cr -good urine output Hyperphosphatemia- likely due to kidney failure. started phos low, may need binders if Phos remains > 5.5 Hyperkalemia in light of acute Anemia, renal hypoperfusion and ARB K is high normal continue Low K diet given pt has CKD Prevertebral, retropharyngeal fluid collection, edema likely of noninfectious etiology. The spinal canal is normal in diameter and accommodates normal appearing spinal cord that shows intrinsically normal signal. -Will order soft tissue cervical collar. -ENT consulted, does not feel this is an abscess; no intervention from him at this time. L LE swelling -Duplex US negative for DVT. L abcess s/p I&C s/p I and D MRI osteomylitis -ID on board IDDM: uncontrolled increased to 20 units BID in light of hypoglycemia over night. will defer to primary team BS management. -BGM Hypertension- Continue amlodipine and Cardura consider addition of BB (i.e. atenolol or labetalol if bp above goal ) eventually may require YASMIN/ARB but would be cautious at this time given hyperkalemia FEN -Continue IVF - low K diet diabetic -replete electrolyte as needed DVT prophylaxis-- SCDS, no anticoagulant at this time in light of hemostabilty. GI prophylaxis- protonix Dispo: transfer to floors, awaiting bed. Visit type - Emergency Visit Emergency Visit: Yes ED Registration Date: 08/19/16 Care time: The patient presented to the Emergency Department on the above date and was hospitalized for further evaluation of their emergent condition. - New Patient This patient is new to me today: No - Critical Care Critical Care patient: Yes Total Critical Care Time (in minutes): 46 Critical Care Statement: The care of this patient involved high complexity decision making to prevent further life threatening deterioration of the patient 's condition and/or to evalute & treat vital organ system(s) failure or risk of failure.
--- NOTE | 2016-08-24 16:12 | PN ---
Teaching Attending Note Name of Resident: Sis Barrett ATTENDING PHYSICIAN STATEMENT I saw and evaluated the patient. I reviewed the resident's note and discussed the case with the resident. I agree with the resident's findings and plan as documented. SUBJECTIVE: OBJECTIVE: Vital Signs Period Temp Pulse Resp BP Sys/Gutierrez Pulse Ox Last 24 Hr 97.8 F-98 F 65-93 11-18 132-158/39-97 96-98 ASSESSMENT AND PLAN:
--- NOTE | 2016-08-24 16:24 | PN ---
Physical Exam: SUBJECTIVE: Patient seen and examined admits to left sided leg and arm weakness that started after his fall but was not mentioned until now. Photophobia improved. Afebrile, white count trending down. Antibiotic changed to Unasyn today. Hemoglobin dropped; 1U pRBC today OBJECTIVE: Vital Signs Period Temp Pulse Resp BP Sys/Gutierrez Pulse Ox Last 24 Hr 97.8 F-98 F 65-93 11-18 132-158/39-97 96-98 GENERAL: The patient is awake, alert, and fully oriented, in no acute distress. HEAD: Normal with no signs of trauma. EYES: pupil constricted sclera icteric, conjunctiva clear. No ptosis. ENT: Ears normal, nares patent, oropharynx clear without exudates, moist mucous membranes. NECK: Trachea midline, full range of motion, supple. LUNGS:scattered rhonchi HEART: Regular rate and rhythm, S1, S2 without murmur, rub or gallop. ABDOMEN: Soft, nontender, nondistended, normoactive bowel sounds, no guarding, no rebound, no hepatosplenomegaly, no masses. EXTREMITIES: 2+ pulses, warm, well-perfused, no edema. left foot ulcer; packed outside wrapping with draining serosanginous fluid; NEUROLOGICAL: Cranial nerves II through XII grossly intact. Normal speech, gait not observed. left sided upper and lower extremity weakness; 3/5; sensation decreased on the left anterior thigh when compared to the right PSYCH: Normal mood, normal affect. SKIN: Warm, dry, normal turgor, no rashes or lesions noted Laboratory Results - last 24 hr 08/19/16 08/23/16 08/23/16 23:37 08:10 15:57 WBC RBC Hgb Hct MCV MCHC RDW Plt Count MPV Neutrophils % Lymphocytes % Monocytes % Eosinophils % Basophils % Sodium Potassium Chloride Carbon Dioxide Anion Gap BUN Creatinine Creat Clearance w eGFR POC Glucometer [phone] Random Glucose Calcium Phosphorus Magnesium Total Bilirubin AST ALT Alkaline Phosphatase Total Protein Albumin Blood Type B POSITIVE B POSITIVE Antibody Screen Negative Negative Crossmatch See Detail See Detail 08/23/16 08/23/16 08/24/16 19:10 21:25 05:15 WBC 13.5 H 12.5 H RBC 3.22 L 2.91 L Hgb 7.6 L D 6.9 L* Hct 24.0 L 21.8 L MCV 74.5 L 75.0 L MCHC 31.5 L 31.8 L RDW 26.1 H 25.8 H Plt Count 617 H 577 H MPV 6.9 L 7.0 L Neutrophils % 76.6 Lymphocytes % 9.9 D Monocytes % 9.7 Eosinophils % 3.3 Basophils % 0.5 Sodium Potassium Chloride Carbon Dioxide Anion Gap BUN Creatinine Creat Clearance w eGFR POC Glucometer [phone] Random Glucose Calcium Phosphorus Magnesium Total Bilirubin AST ALT Alkaline Phosphatase Total Protein Albumin Blood Type Antibody Screen Crossmatch 08/24/16 08/24/16 08/24/16 05:15 05:39 11:27 WBC RBC Hgb Hct MCV MCHC RDW Plt Count MPV Neutrophils % Lymphocytes % Monocytes % Eosinophils % Basophils % Sodium 142 Potassium 5.4 H Chloride 113 H Carbon Dioxide 22 Anion Gap 7 L BUN 43 H Creatinine 2.2 H Creat Clearance w eGFR 30.68 POC Glucometer 127.94884 [phone] Random Glucose 78 D Calcium 7.9 L Phosphorus 5.9 H Magnesium 1.6 L Total Bilirubin 0.2 AST 9 L D ALT 8 L Alkaline Phosphatase 119 H Total Protein 6.6 Albumin 1.5 L Blood Type Antibody Screen Crossmatch Active Medications Generic Name Dose Route Start Last Admin Trade Name Freq PRN Reason Stop Dose Admin Albuterol Sulfate 2 puff 08/22/16 19:12 Ventolin Hfa Inhaler - IH Q4H PRN WHEEZING Amlodipine Besylate 10 mg 08/23/16 10:00 08/24/16 09:36 Norvasc - PO 10 mg DAILY IGGY Administration Ascorbic Acid 500 mg 08/23/16 10:00 08/24/16 09:35 Vitamin C - PO 500 mg DAILY IGGY Administration Calcium Acetate 1,334 mg 08/24/16 17:30 Phoslo - PO 08/26/16 17:29 TIDCM IGGY Doxazosin Mesylate 4 mg 08/23/16 10:00 08/24/16 09:43 Cardura - PO 4 mg DAILY IGGY Administration Duloxetine HCl 30 mg 08/23/16 10:00 08/24/16 09:35 Cymbalta - PO 30 mg DAILY IGGY Administration Fentanyl 1 patch 08/23/16 12:30 08/23/16 12:42 Duragesic 25mcg Patch - TD 08/30/16 12:21 1 patch Q72H IGGY Administration Ferrous Sulfate 325 mg 08/23/16 10:00 08/24/16 09:36 Feosol - PO 325 mg DAILY IGGY Administration Folic Acid 1 mg 08/23/16 10:00 08/24/16 09:36 Folic Acid - PO 1 mg DAILY IGGY Administration Ampicillin Sodium/Sulbactam 100 mls @ 200 mls/hr 08/24/16 18:00 Sodium 3 gm/ Sodium Chloride IVPB Q8H-IV IGGY Insulin Aspart 1 vial 08/22/16 22:00 08/24/16 11:29 Novolog Vial Sliding Scale - SQ 2 units ACHS IGGY Administration Protocol Insulin Detemir 20 units 08/22/16 22:00 08/24/16 05:59 Levemir Vial SQ 20 units BID@0700,2200 IGGY Administration Mirtazapine 30 mg 08/22/16 22:00 08/23/16 21:46 Remeron - PO 30 mg HS IGGY Administration Miscellaneous 1 each 08/23/16 12:20 Duragesic Patch Waste TD PRN PRN PAIN Oxycodone HCl 5 mg 08/22/16 19:12 08/24/16 09:58 Roxicodone - PO 5 mg Q6H PRN Administration PAIN Pantoprazole Sodium 20 mg 08/23/16 10:00 08/24/16 09:44 Protonix - PO 20 mg DAILY IGGY Administration Pregabalin 100 mg 08/22/16 22:00 08/24/16 09:35 Lyrica - PO 100 mg BID IGGY Administration Sodium Bicarbonate 650 mg 08/23/16 10:00 08/24/16 09:35 Sodium Bicarbonate - PO 650 mg DAILY IGGY Administration Trazodone HCl 300 mg 08/22/16 22:00 08/23/16 21:46 Desyrel - PO 300 mg HS IGGY Administration Zinc Sulfate 220 mg 08/23/16 10:00 08/24/16 09:35 Orazinc - PO 220 mg DAILY IGGY Administration ASSESSMENT/PLAN: Head, Facial Bones, Cervical Spine CT: no intracranial/extracranial bleeding, no edema, no mass, no evidence of ischemia, + R supraorbital soft tissue swelling with laceration, no facial or spinal Fx MRI C-spine: prevertebral, retropharyngeal fluid collection/edema, likely non- infectious in etiology CXR: no acute pathology Echo: mild LVH ; LV mildy dilated ; preserved LVSF; no regional wall motin abnormalities; Mild to mod MR; Mod TR: RVSP 30-40mmhg; mild pulmonary hypertention; left and right atria mod dilated; mild aortic root dilation; small pericardial effusion <1cm MRI: left Foot + osteomyelitis of left foot, distal tibia, lateral and medial malleolus ASSESSMENT/PLAN: Pt is a 60 yo M with PMHx of DM, HTN, diabetic neuropathy with left foot amputation, and CKD who presents to the ED s/p syncopal episode from standing position with +LOC and +head trauma. Pt was found to have a Hgb of 3.7 and WBC of 26.1 upon presentation. #Syncope most likely related to anemia: -most likely anemia of chronic disease (CKD) with anemia from acute infection from osteomyelitits -multiple transfusion PRBC; keep hemoglobin >7 -FOBT negative -Pt reports Hx of colonoscopy in December of 2015 with subsequent Bx of colonic polyps negative. Pt reports nml EGD done around the same time. Both performed by Dr. Etienne -low serum iron; low TIBC, low iron saturation, high ferritin in settting of acute infection -hematology workup #sepsis secondary to osteomyelitis: -wbc trending down -vitals stable -cont vanco, follow trough; started Unasyn today -blood culture +beta hemolytic strep Group G -wound culture same -MRI +osteomyelitis; - Dr. Galvan consulted #photophobia: improved -orbital CT negative -optho consult #Hyperkalemia; resolved -Medically treated with Ca gluconate, Insulin/D50, and kaexylate on 08/20 -Continue to trend -maintain low K diet #hyperphosphatemia: start binder if >5.5 #Acute on chronic renal failure: improved -Renal US showing bilateral echogenic kidneys : this relates to chronic kidney disease -can d/c fluids; -Renal consult #Retropharyngeal/prevertebral edema on MRI -MRI does not correlate to active infection -ENT consulted, does not feel this is an abscess; no intervention from him at this time # L LE swelling -Duplex US negative for DVT # Diabetes -levemir increased to 20 Ubid -BGM FEN: Fluids: po Electrolytes:trend Diet: diabetic; low K DVT ppx: scds Disposition: continue work up and management Visit type - Emergency Visit Emergency Visit: Yes ED Registration Date: 08/19/16 Care time: The patient presented to the Emergency Department on the above date and was hospitalized for further evaluation of their emergent condition. - New Patient This patient is new to me today: No - Critical Care Critical Care patient: Yes Total Critical Care Time (in minutes): 35 Critical Care Statement: The care of this patient involved high complexity decision making to prevent further life threatening deterioration of the patient 's condition and/or to evalute & treat vital organ system(s) failure or risk of failure.
[2016-08-24] MEDS: AMPICILLIN NA/SULBACTAM NA 3 GM in SODIUM CHLORIDE 100 ML IVPB SCH (17:02)
[2016-08-24] MEDS: CALCIUM ACETATE 667 MG CAPSULE (FP) PO SCH (17:03)
[2016-08-24 19:27] LABS: MCH 23.7 pg (25.7-33.7); MEAN CELL VOLUME 76.4 fl (80-96); MEAN PLT VOLUME 7.2 fl (7.5-11.1); PLATELET COUNT 611 K/MM3 (134-434); RDW 25.7 % (11.9-15.9); WHITE BLOOD COUNT 13.4 K/mm3 (4.0-10.0)
[2016-08-24 20:39] LABS: ANISOCYTOSIS 1+; HYPOCHROMIA 2+
[2016-08-24] MEDS: traZODone HCL 100 MG TABLET (FP) PO SCH (21:09)
[2016-08-24] MEDS: MIRTAZAPINE 15 MG TABLET (FP) PO SCH (21:10)
[2016-08-24] MEDS ORDERED: BENZOIN/ALOE VERA/STORAX/TOLU 58 ML BOTTLE ONE (22:16)
[2016-08-25] MEDS: AMPICILLIN NA/SULBACTAM NA 3 GM in SODIUM CHLORIDE 100 ML IVPB SCH ×3 (01:43→17:26)
[2016-08-25] MEDS: oxyCODONE HCL 5 MG TABLET PO PRN ×2 (03:08→23:12)
[2016-08-25] MEDS: INSULIN SLIDING SCALE (NOVOLOG) 1 VIAL SQ SCH ×4 (06:11→21:39)
[2016-08-25] MEDS: INSULIN DETEMIR 100 UNITS/ML MDV SQ SCH ×2 (06:12→21:40)
[2016-08-25 06:58] LABS: BASOPHIL 0.5 % (0-2.0); EOSINOPHIL 3.5 % (0-4.5); MCH 24.1 pg (25.7-33.7); MCHC 31.9 g/dl (32.0-35.9); MEAN CELL VOLUME 75.6 fl (80-96); NEUTROPHILS 80.2 % (42.8-82.8); PLATELET COUNT 603 K/MM3 (134-434); RDW 26.2 % (11.9-15.9); WHITE BLOOD COUNT 13.4 K/mm3 (4.0-10.0)
[2016-08-25 07:22] LABS: ALBUMIN 1.6 g/dl (3.4-5.0); BILIRUBIN,TOTAL 0.2 mg/dL (0.2-1.0); CALCIUM 8.5 mg/dL (8.5-10.1); COCKROFT - GAULT 49.25; CREATININE 2.2 mg/dL (0.7-1.3); MAGNESIUM 1.9 mg/dL (1.8-2.4); PHOSPHOROUS 5.9 mg/dL (2.5-4.9)
--- NOTE | 2016-08-25 09:16 | PN ---
Progress Note (short form) - Note Progress Note: Patient seen and examined in the ICU. No events overnight. H&H stable after transfusion. Weakness only seems to be in the proximal LUE. (+) Pain in the LLE OBJECTIVE: Intake & Output 08/22/16 08/23/16 08/24/16 08/25/16 23:59 23:59 23:59 23:59 Intake Total 2477 2590 1440 200 Output Total 1800 2800 2650 400 Balance 677 -210 -1210 -200 Weight 224 lb 4.8 oz 222 lb 8 oz 222 lb 7.143 oz 215 lb Last Vital Signs Temp Pulse Resp BP Pulse Ox 98.0 F 81 20 154/91 98 08/25/16 06:00 08/25/16 06:00 08/25/16 06:00 08/25/16 06:00 08/24/16 21:00 Active Medications Albuterol Sulfate (Ventolin Hfa Inhaler -) 2 puff IH Q4H PRN PRN Reason: WHEEZING Amlodipine Besylate (Norvasc -) 10 mg PO DAILY [facility] Last Admin: 08/24/16 09:36 Dose: 10 mg Ascorbic Acid (Vitamin C -) 500 mg PO DAILY [facility] Last Admin: 08/24/16 09:35 Dose: 500 mg Calcium Acetate (Phoslo -) 1,334 mg PO TIDCM [facility] Stop: 08/26/16 17:29 Last Admin: 08/24/16 17:03 Dose: 1,334 mg Doxazosin Mesylate (Cardura -) 4 mg PO DAILY [facility] Last Admin: 08/24/16 09:43 Dose: 4 mg Duloxetine HCl (Cymbalta -) 30 mg PO DAILY [facility] Last Admin: 08/24/16 09:35 Dose: 30 mg Fentanyl (Duragesic 25mcg Patch -) 1 patch TD Q72H [facility] Stop: 08/30/16 12:21 Last Admin: 08/23/16 12:42 Dose: 1 patch Ferrous Sulfate (Feosol -) 325 mg PO DAILY [facility] Last Admin: 08/24/16 09:36 Dose: 325 mg Folic Acid (Folic Acid -) 1 mg PO DAILY [facility] Last Admin: 08/24/16 09:36 Dose: 1 mg Ampicillin Sodium/Sulbactam (Sodium 3 gm/ Sodium Chloride) 100 mls @ 200 mls/ hr IVPB Q8H-IV [facility] Last Admin: 08/25/16 01:43 Dose: 200 mls/hr Insulin Aspart (Novolog Vial Sliding Scale -) 1 vial SQ ACHS IGGY PRN Reason: Protocol Last Admin: 08/25/16 06:11 Dose: Not Given Insulin Detemir (Levemir Vial) 20 units SQ BID@0700,2200 [facility] Last Admin: 08/25/16 06:12 Dose: 20 units Mirtazapine (Remeron -) 30 mg PO HS [facility] Last Admin: 08/24/16 21:10 Dose: 30 mg Miscellaneous (Duragesic Patch Waste) 1 each TD PRN PRN PRN Reason: PAIN Oxycodone HCl (Roxicodone -) 5 mg PO Q6H PRN PRN Reason: PAIN Last Admin: 08/25/16 03:08 Dose: 5 mg Pantoprazole Sodium (Protonix -) 20 mg PO DAILY [facility] Last Admin: 08/24/16 09:44 Dose: 20 mg Pregabalin (Lyrica -) 100 mg PO BID [facility] Last Admin: 08/24/16 21:10 Dose: 100 mg Sodium Bicarbonate (Sodium Bicarbonate -) 650 mg PO DAILY [facility] Last Admin: 08/24/16 09:35 Dose: 650 mg Trazodone HCl (Desyrel -) 300 mg PO HS [facility] Last Admin: 08/24/16 21:09 Dose: 300 mg Zinc Sulfate (Orazinc -) 220 mg PO DAILY [facility] Last Admin: 08/24/16 09:35 Dose: 220 mg Gen: NAD at rest Heart: RRR Lung: decreased breath sounds at the bases Abd: soft, nontender Ext: + edema, dressing mildly saturated Laboratory Results - last 24 hr 08/19/16 08/23/16 08/24/16 23:37 08:10 11:27 WBC RBC Hgb Hct MCV MCHC RDW Plt Count MPV Neutrophils % Lymphocytes % Monocytes % Eosinophils % Basophils % Hypochromic-Microcytic Anisocytosis Morphology Comment Sodium Potassium Chloride Carbon Dioxide Anion Gap BUN Creatinine Creat Clearance w eGFR POC Glucometer [phone] Random Glucose Calcium Phosphorus Magnesium Total Bilirubin AST ALT Alkaline Phosphatase Total Protein Albumin Random Vancomycin Blood Type B POSITIVE B POSITIVE Antibody Screen Negative Negative Crossmatch See Detail See Detail 08/24/16 08/24/16 08/24/16 16:50 18:45 21:01 WBC 13.4 H RBC 3.51 L D Hgb 8.3 L D Hct 26.8 L D MCV 76.4 L MCHC 31.0 L RDW 25.7 H Plt Count 611 H MPV 7.2 L Neutrophils % Lymphocytes % Monocytes % Eosinophils % Basophils % Hypochromic-Microcytic 2+ Anisocytosis 1+ Morphology Comment Slide scanned Sodium Potassium Chloride Carbon Dioxide Anion Gap BUN Creatinine Creat Clearance w eGFR POC Glucometer 262.41956 189.72819 Random Glucose Calcium Phosphorus Magnesium Total Bilirubin AST ALT Alkaline Phosphatase Total Protein Albumin Random Vancomycin Blood Type Antibody Screen Crossmatch 08/25/16 08/25/16 08/25/16 05:35 05:35 05:35 WBC 13.4 H RBC 3.34 L Hgb 8.0 L Hct 25.2 L MCV 75.6 L MCHC 31.9 L RDW 26.2 H Plt Count 603 H MPV 7.0 L Neutrophils % 80.2 Lymphocytes % 8.6 Monocytes % 7.2 Eosinophils % 3.5 Basophils % 0.5 Hypochromic-Microcytic Anisocytosis Morphology Comment Sodium 142 Potassium 5.4 H Chloride 112 H Carbon Dioxide 21 Anion Gap 9 BUN 45 H Creatinine 2.2 H Creat Clearance w eGFR 30.68 POC Glucometer Random Glucose 89 Calcium 8.5 Phosphorus 5.9 H Magnesium 1.9 Total Bilirubin 0.2 AST 10 L ALT 12 D Alkaline Phosphatase 131 H Total Protein 7.0 Albumin 1.6 L Random Vancomycin 9.231 Blood Type Antibody Screen Crossmatch 08/25/16 06:10 WBC RBC Hgb Hct MCV MCHC RDW Plt Count MPV Neutrophils % Lymphocytes % Monocytes % Eosinophils % Basophils % Hypochromic-Microcytic Anisocytosis Morphology Comment Sodium Potassium Chloride Carbon Dioxide Anion Gap BUN Creatinine Creat Clearance w eGFR POC Glucometer 130.53449 Random Glucose Calcium Phosphorus Magnesium Total Bilirubin AST ALT Alkaline Phosphatase Total Protein Albumin Random Vancomycin Blood Type Antibody Screen Crossmatch ASSESSMENT AND PLAN: Syncope Anemia Left foot ulcer infection s/p debridement Gram Positive Bacteremia Sepsis Acute on Chronic Renal Failure Hyperkalemia DM (?) Nerve impingement causing symptoms - Local wound care - ABX - Pain control - monitor urine output, creatinine - glucose monitoring - PO as tolerated - OOB to chair - Floor - PT/OT Dr Butt
--- NOTE | 2016-08-25 10:04 | PN ---
Progress Note, Physician History of Present Illness: Awake, alert No c/o foot pain Afebrile WBC remains slightly elevated BC (08/22) no growth - Current Medication List Current Medications: Active Medications Albuterol Sulfate (Ventolin Hfa Inhaler -) 2 puff IH Q4H PRN PRN Reason: WHEEZING Amlodipine Besylate (Norvasc -) 10 mg PO DAILY [facility] Last Admin: 08/24/16 09:36 Dose: 10 mg Ascorbic Acid (Vitamin C -) 500 mg PO DAILY [facility] Last Admin: 08/24/16 09:35 Dose: 500 mg Calcium Acetate (Phoslo -) 1,334 mg PO TIDCM [facility] Stop: 08/26/16 17:29 Last Admin: 08/24/16 17:03 Dose: 1,334 mg Doxazosin Mesylate (Cardura -) 4 mg PO DAILY [facility] Last Admin: 08/24/16 09:43 Dose: 4 mg Duloxetine HCl (Cymbalta -) 30 mg PO DAILY [facility] Last Admin: 08/24/16 09:35 Dose: 30 mg Fentanyl (Duragesic 25mcg Patch -) 1 patch TD Q72H [facility] Stop: 08/30/16 12:21 Last Admin: 08/23/16 12:42 Dose: 1 patch Ferrous Sulfate (Feosol -) 325 mg PO DAILY [facility] Last Admin: 08/24/16 09:36 Dose: 325 mg Folic Acid (Folic Acid -) 1 mg PO DAILY [facility] Last Admin: 08/24/16 09:36 Dose: 1 mg Ampicillin Sodium/Sulbactam (Sodium 3 gm/ Sodium Chloride) 100 mls @ 200 mls/ hr IVPB Q8H-IV [facility] Last Admin: 08/25/16 01:43 Dose: 200 mls/hr Insulin Aspart (Novolog Vial Sliding Scale -) 1 vial SQ ACHS [facility] PRN Reason: Protocol Last Admin: 08/25/16 06:11 Dose: Not Given Insulin Detemir (Levemir Vial) 20 units SQ BID@0700,2200 [facility] Last Admin: 08/25/16 06:12 Dose: 20 units Mirtazapine (Remeron -) 30 mg PO HS [facility] Last Admin: 08/24/16 21:10 Dose: 30 mg Miscellaneous (Duragesic Patch Waste) 1 each TD PRN PRN PRN Reason: PAIN Oxycodone HCl (Roxicodone -) 5 mg PO Q6H PRN PRN Reason: PAIN Last Admin: 08/25/16 03:08 Dose: 5 mg Pantoprazole Sodium (Protonix -) 20 mg PO DAILY [facility] Last Admin: 08/24/16 09:44 Dose: 20 mg Pregabalin (Lyrica -) 100 mg PO BID [facility] Last Admin: 08/24/16 21:10 Dose: 100 mg Sodium Bicarbonate (Sodium Bicarbonate -) 650 mg PO DAILY [facility] Last Admin: 08/24/16 09:35 Dose: 650 mg Trazodone HCl (Desyrel -) 300 mg PO HS [facility] Last Admin: 08/24/16 21:09 Dose: 300 mg Zinc Sulfate (Orazinc -) 220 mg PO DAILY [facility] Last Admin: 08/24/16 09:35 Dose: 220 mg - Objective Vital Signs: Vital Signs Temperature 98.0 F 08/25/16 06:00 Pulse Rate 81 08/25/16 06:00 Respiratory Rate 20 08/25/16 09:00 Blood Pressure 154/91 08/25/16 06:00 O2 Sat by Pulse Oximetry (%) 98 08/24/16 21:00 Constitutional: Yes: No Distress Eyes: Yes: Conjunctiva Clear Cardiovascular: Yes: Regular Rate and Rhythm, S1, S2 Respiratory: Yes: CTA Bilaterally Gastrointestinal: Yes: Normal Bowel Sounds, Soft. No: Tenderness Extremities: Yes: Other (L LE dressing in place) Labs: CBC, BMP 08/25/16 05:35 08/25/16 05:35 INR, PTT INR 1.26 (0.82-1.09) H 08/22/16 08:40 Fibrinogen 355.0 mg/dL (238-498) 08/20/16 17:10 Assessment/Plan Polymicrobial bacteremia Foot abscess/ osteomyelitis CKD Continue Unasyn Redose vancomycin, check trough am
--- NOTE | 2016-08-25 10:06 | PN ---
"Progress Note (short form) - Note Progress Note: PLEASE SEE A COPY AND PASTE OF A BONE BIOPSY HISTOLOGICAL AND BACTERIOLOGICAL ANALYSIS PERFORMED AT [facility] BY DR. ARMSTRONG ON 26 MARCH 2016 IN LIGHT OF THE + MRI PERFORMED HERE AT [facility]: Final - CULTURE Moderate PSEUDOMONAS AERUGINOSA See sensitivity result on # [id number] (03/26/16) BETA HEMOLYTIC STREP GROUP G CORYNEBACTERIUM SP. Final - CULTURE Few PSEUDOMONAS AERUGINOSA Amikacin CORA Sensitive <=2 Aztreonam K-B Sensitive Cefepime CORA Sensitive 4 Ciprofloxacin CORA Sensitive<=0.25 05/02 Gentamicin CORA Sensitive <=1 08/12 Meropenem CORA Sensitive 1 05/02 Piper/Tazobactam CORA Resistant >=128 Tobramycin CORA Sensitive <=1 08/12 BETA HEMOLYTIC STREP GROUP G CORYNEBACTERIUM SP. Specimen A labeled left 2nd metatarsal bone biopsy Received in formalin consists of a cylindrical fragment of rae tissue measuring 0.6 cm in length and 0.1 cm in diameter. All will be submitted. (1 bk) (Decal) Specimen B labeled left 3rd metatarsal bone biopsy Received in formalin consists of multiple cylindrical pieces of rae tissue measuring 1.2 cm in length and 0.1 cm in diameter. All will be submitted. (3 bk) (Decal) A BONE, LEFT 2ND METATARSAL, BIOPSY| -UNREMARKABLE BONE AND ARTICULAR CARTILAGE. -NEGATIVE FOR ACUTE OSTEOMYELITIS. B. BONE, LEFT 3RD METATARSAL, BIOPSY| -ARTICULAR CARTILAGE WITH OSTEODENEGATIVE CHANGES AND UNREMARKABLE BONE. -NEGATIVE FOR ACUTE OSTEOMYELITIS ON SATURDAY PATIENT IS SCHEDULED FOR A DEBRIDEMENT BUT IN LIGHT OF OF DIFFERENT ORGANISMS FROM THE PREVIOUS BIOPSY AND THE STREP FROM THE RECENT I AND D, MIGHT BE PRUDENT TO PERFORM MORE OSSEOUS BIOPSIES FOR HISTOLOGICAL AND BACTERIOLOGICAL ANALYSIS FOR Future MORE EXTENSIVE OSSEOUS DEBRIDEMENT WITH POSSIBLE ANTIBIOTIC IMPREGNATED CALCIUM SULPHATE MATRIX SUCH STIMULANS a pharmaceutical-grade calcium sulfate that is the perfect partner for your infection management strategy helping you to improve surgical outcomes and lower overall costs of care - See more at: [email or web address] Thank you for this consult. Patient has been attended by myself for > 4 years here at [facility] both on an inpatient basis and as an outpatient at the [facility] and for wound care at [facility] in the [place]. He was last attended by myself at the latter institution approximately 2-3 weeks ago. Mr. Judge insisted for care of his foot complaint by this examiner at this institution and is compliant with hospital protocol given I am the foot surgeon of record and on staff at this institution. Consult dictated. Operative Report dictated."
[2016-08-25] MEDS: FOLIC ACID 1 MG TABLET (FP) PO SCH (10:10)
[2016-08-25] MEDS: ASCORBIC ACID 500 MG TABLET (FP) PO SCH (10:11)
[2016-08-25] MEDS: SODIUM BICARBONATE 650 MG TABLET PO SCH (10:11)
[2016-08-25] MEDS: PANTOPRAZOLE 20 MG TABLET (FP) PO SCH (10:12)
[2016-08-25] MEDS: CALCIUM ACETATE 667 MG CAPSULE (FP) PO SCH ×3 (10:12→17:26)
[2016-08-25] MEDS: DULoxetine HCL 30 MG CAPSULE.DR (FP) PO SCH (10:12)
[2016-08-25] MEDS: amLODIPine BESYLATE 10 MG TABLET (FP) PO SCH (10:12)
[2016-08-25] MEDS: PREGABALIN 50 MG CAPSULE PO SCH ×2 (10:13→21:39)
[2016-08-25] MEDS: FERROUS SO4 325 MG TABLET (FP) PO SCH (10:14)
[2016-08-25] MEDS: DOXAZOSIN MESYLATE 4 MG TABLET PO SCH (10:15)
[2016-08-25] MEDS: ZINC SULFATE 220 MG CAPSULE (FP) PO SCH (10:15)
[2016-08-25] MEDS ORDERED: VANCOMYCIN 1 GRAM (PRE-DOCKED) 250 ML IVPB ONE ×2 (10:30→12:30)
[2016-08-25] MEDS ORDERED: PT OWN MED DRAWER 7, Y5N ONE ×2 (12:13→17:23)
--- NOTE | 2016-08-25 12:33 | PN ---
Progress Note (short form) - Note Progress Note: Renal Follow up for FROYLAN/CKD with Hyperkalemia Pt seen and examined in the ICU continues to have discomfort in the shoulder and arm no sob or chest pain good urine output Vital Signs Temperature 98.0 F 08/25/16 06:00 Pulse Rate 81 08/25/16 06:00 Respiratory Rate 20 08/25/16 09:00 Blood Pressure 154/91 08/25/16 06:00 O2 Sat by Pulse Oximetry (%) 98 08/24/16 21:00 Intake & Output 08/22/16 08/23/16 08/24/16 08/25/16 23:59 23:59 23:59 23:59 Intake Total 2477 2590 1440 600 Output Total 1800 2800 2650 1100 Balance 677 -210 -1210 -500 Weight 224 lb 4.8 oz 222 lb 8 oz 222 lb 7.143 oz 215 lb Gen: NAD, awake and alert, drowsy HEENT: No JVD CVS: RRR, No M/R Lungs: Dec BS at lung bases, no rales Abd: NT/ND Ext: 1+ edema in LE, Left TMA CBC, BMP 08/25/16 05:35 08/25/16 05:35 Laboratory Tests 08/25/16 05:35 Calcium 8.5 Phosphorus 5.9 H Magnesium 1.9 Albumin 1.6 L Current Medications Albuterol Sulfate (Ventolin Hfa Inhaler -) 2 puff IH Q4H PRN PRN Reason: WHEEZING Amlodipine Besylate (Norvasc -) 10 mg PO DAILY [facility] Last Admin: 08/25/16 10:12 Dose: 10 mg Ascorbic Acid (Vitamin C -) 500 mg PO DAILY [facility] Last Admin: 08/25/16 10:11 Dose: 500 mg Calcium Acetate (Phoslo -) 1,334 mg PO TIDCM [facility] Stop: 08/26/16 17:29 Last Admin: 08/25/16 12:01 Dose: 1,334 mg Doxazosin Mesylate (Cardura -) 4 mg PO DAILY [facility] Last Admin: 08/25/16 10:15 Dose: 4 mg Duloxetine HCl (Cymbalta -) 30 mg PO DAILY [facility] Last Admin: 08/25/16 10:12 Dose: 30 mg Fentanyl (Duragesic 25mcg Patch -) 1 patch TD Q72H [facility] Stop: 08/30/16 12:21 Last Admin: 08/23/16 12:42 Dose: 1 patch Ferrous Sulfate (Feosol -) 325 mg PO DAILY [facility] Last Admin: 08/25/16 10:14 Dose: 325 mg Folic Acid (Folic Acid -) 1 mg PO DAILY [facility] Last Admin: 08/25/16 10:10 Dose: 1 mg Ampicillin Sodium/Sulbactam (Sodium 3 gm/ Sodium Chloride) 100 mls @ 200 mls/ hr IVPB Q8H-IV [facility] Last Admin: 08/25/16 10:11 Dose: 200 mls/hr Vancomycin HCl (Vancomycin (Pre-Docked)) 250 mls @ 166.667 mls/hr IVPB ONCE ONE Stop: 08/25/16 13:59 Insulin Aspart (Novolog Vial Sliding Scale -) 1 vial SQ ACHS [facility] PRN Reason: Protocol Last Admin: 08/25/16 12:02 Dose: 2 units Insulin Detemir (Levemir Vial) 20 units SQ BID@0700,2200 [facility] Last Admin: 08/25/16 06:12 Dose: 20 units Methyl Salicylate (Sterling-Greer -) 1 applic TP BID [facility] Mirtazapine (Remeron -) 30 mg PO HS [facility] Last Admin: 08/24/16 21:10 Dose: 30 mg Miscellaneous (Duragesic Patch Waste) 1 each TD PRN PRN PRN Reason: PAIN Oxycodone HCl (Roxicodone -) 5 mg PO Q6H PRN PRN Reason: PAIN Last Admin: 08/25/16 03:08 Dose: 5 mg Pantoprazole Sodium (Protonix -) 20 mg PO DAILY [facility] Last Admin: 08/25/16 10:12 Dose: 20 mg Pregabalin (Lyrica -) 100 mg PO BID [facility] Last Admin: 08/25/16 10:13 Dose: 100 mg Sodium Bicarbonate (Sodium Bicarbonate -) 650 mg PO DAILY [facility] Last Admin: 08/25/16 10:11 Dose: 650 mg Trazodone HCl (Desyrel -) 300 mg PO HS [facility] Last Admin: 08/24/16 21:09 Dose: 300 mg Zinc Sulfate (Orazinc -) 220 mg PO DAILY [facility] Last Admin: 08/25/16 10:15 Dose: 220 mg A/P 60 year old Gentleman with PMhx of CKD (baseline unclear), Hypertension, IDDM, PVD who presented s/p syncopal episode and found to have acute Anemia with Hgb of 3.7 and BUN/Cr of 41/2.7 and K of 6.8. #Hyperkalemia in setting of acute Anemia, renal hypoperfusion and ARB Continue Low K diet #FROYLAN vs. CKD Renal function stable good urine output #Hyperphosphatemia start Renal diet may need binders if Phos remains > 5.5 #Hypercalcemia Corrected CA is 10.3 check PTH #Acute Anemia Heme Following Transfuse as per primary team Will likely need ADRIAN given CKD iron saturation is very low ferritin is elevated but in setting of infection #Bactermia/Sepsis continue Abx as per ID Dose Vanco by levels #Hypertension Continue amlodipine and Cardura consider addition of BB (i.e. atenolol or labetalol if bp above goal ) eventually may require YASMIN/ARB but would be cautious at this time given hyperkalemia Miguel Jansen DO
--- NOTE | 2016-08-25 13:12 | PN ---
Physical Exam: SUBJECTIVE: Patient seen and examined complains of weakness. Afebrile, white count trending down. Dr. Galvan note reviewed. Will get debridement Saturday. OBJECTIVE: Vital Signs Period Temp Pulse Resp BP Sys/Gutierrez Pulse Ox Last 24 Hr 97.8 F-98.3 F 80-95 16-24 116-161/42-96 98-98 GENERAL: The patient is awake, alert, and fully oriented, in no acute distress. HEAD: Normal with no signs of trauma. EYES: PERRL, extraocular movements intact, sclera anicteric, conjunctiva clear. No ptosis. ENT: Ears normal, nares patent, oropharynx clear without exudates, moist mucous membranes. NECK: Trachea midline, full range of motion, supple. LUNGS: Breath sounds equal, mild rhonchi of apex HEART: Regular rate and rhythm, S1, S2 without murmur, rub or gallop. ABDOMEN: Soft, nontender, nondistended, normoactive bowel sounds, no guarding, no rebound, no hepatosplenomegaly, no masses. EXTREMITIES: 2+ pulses, warm, well-perfused, no edema. Left LE with dressing, draining yellow/serosangiunous fluid NEUROLOGICAL: Cranial nerves II through XII grossly intact. Normal speech, gait not observed. left sided arm adnleg weakness; 3/5 motor ; decreased sensation left Upper and lower extremity PSYCH: Normal mood, normal affect. SKIN: Warm, dry, normal turgor, no rashes or lesions noted Laboratory Results - last 24 hr 08/24/16 08/24/16 08/24/16 16:50 18:45 21:01 WBC 13.4 H RBC 3.51 L D Hgb 8.3 L D Hct 26.8 L D MCV 76.4 L MCHC 31.0 L RDW 25.7 H Plt Count 611 H MPV 7.2 L Neutrophils % Lymphocytes % Monocytes % Eosinophils % Basophils % Hypochromic-Microcytic 2+ Anisocytosis 1+ Morphology Comment Slide scanned Sodium Potassium Chloride Carbon Dioxide Anion Gap BUN Creatinine Creat Clearance w eGFR POC Glucometer [phone] Random Glucose Calcium Phosphorus Magnesium Total Bilirubin AST ALT Alkaline Phosphatase Total Protein Albumin Random Vancomycin 08/25/16 08/25/16 08/25/16 05:35 05:35 05:35 WBC 13.4 H RBC 3.34 L Hgb 8.0 L Hct 25.2 L MCV 75.6 L MCHC 31.9 L RDW 26.2 H Plt Count 603 H MPV 7.0 L Neutrophils % 80.2 Lymphocytes % 8.6 Monocytes % 7.2 Eosinophils % 3.5 Basophils % 0.5 Hypochromic-Microcytic Anisocytosis Morphology Comment Sodium 142 Potassium 5.4 H Chloride 112 H Carbon Dioxide 21 Anion Gap 9 BUN 45 H Creatinine 2.2 H Creat Clearance w eGFR 30.68 POC Glucometer Random Glucose 89 Calcium 8.5 Phosphorus 5.9 H Magnesium 1.9 Total Bilirubin 0.2 AST 10 L ALT 12 D Alkaline Phosphatase 131 H Total Protein 7.0 Albumin 1.6 L Random Vancomycin 9.231 08/25/16 06:10 WBC RBC Hgb Hct MCV MCHC RDW Plt Count MPV Neutrophils % Lymphocytes % Monocytes % Eosinophils % Basophils % Hypochromic-Microcytic Anisocytosis Morphology Comment Sodium Potassium Chloride Carbon Dioxide Anion Gap BUN Creatinine Creat Clearance w eGFR POC Glucometer [phone] Random Glucose Calcium Phosphorus Magnesium Total Bilirubin AST ALT Alkaline Phosphatase Total Protein Albumin Random Vancomycin Active Medications Generic Name Dose Route Start Last Admin Trade Name Freq PRN Reason Stop Dose Admin Albuterol Sulfate 2 puff 08/22/16 19:12 Ventolin Hfa Inhaler - IH Q4H PRN WHEEZING Amlodipine Besylate 10 mg 08/23/16 10:00 08/25/16 10:12 Norvasc - PO 10 mg DAILY [facility] Administration Ascorbic Acid 500 mg 08/23/16 10:00 08/25/16 10:11 Vitamin C - PO 500 mg DAILY [facility] Administration Calcium Acetate 1,334 mg 08/24/16 17:30 08/25/16 12:01 Phoslo - PO 08/26/16 17:29 1,334 mg TIDCM [facility] Administration Doxazosin Mesylate 4 mg 08/23/16 10:00 08/25/16 10:15 Cardura - PO 4 mg DAILY [facility] Administration Duloxetine HCl 30 mg 08/23/16 10:00 08/25/16 10:12 Cymbalta - PO 30 mg DAILY [facility] Administration Fentanyl 1 patch 08/23/16 12:30 08/23/16 12:42 Duragesic 25mcg Patch - TD 08/30/16 12:21 1 patch Q72H [facility] Administration Ferrous Sulfate 325 mg 08/23/16 10:00 08/25/16 10:14 Feosol - PO 325 mg DAILY [facility] Administration Folic Acid 1 mg 08/23/16 10:00 08/25/16 10:10 Folic Acid - PO 1 mg DAILY [facility] Administration Ampicillin Sodium/Sulbactam 100 mls @ 200 mls/hr 08/24/16 18:00 08/25/16 10:11 Sodium 3 gm/ Sodium Chloride IVPB 200 mls/hr Q8H-IV [facility] Administration Vancomycin HCl 250 mls @ 166.667 mls/hr 08/25/16 12:30 Vancomycin (Pre-Docked) IVPB 08/25/16 13:59 ONCE ONE Insulin Aspart 1 vial 08/22/16 22:00 08/25/16 12:02 Novolog Vial Sliding Scale - SQ 2 units ACHS [facility] Administration Protocol Insulin Detemir 20 units 08/22/16 22:00 08/25/16 06:12 Levemir Vial SQ 20 units BID@0700,2200 [facility] Administration Methyl Salicylate 1 applic 08/25/16 22:00 Sterling-Greer - TP BID [facility] Mirtazapine 30 mg 08/22/16 22:00 08/24/16 21:10 Remeron - PO 30 mg HS [facility] Administration Miscellaneous 1 each 08/23/16 12:20 Duragesic Patch Waste TD PRN PRN PAIN Oxycodone HCl 5 mg 08/22/16 19:12 08/25/16 03:08 Roxicodone - PO 5 mg Q6H PRN Administration PAIN Pantoprazole Sodium 20 mg 08/23/16 10:00 08/25/16 10:12 Protonix - PO 20 mg DAILY [facility] Administration Pregabalin 100 mg 08/22/16 22:00 08/25/16 10:13 Lyrica - PO 100 mg BID [facility] Administration Sodium Bicarbonate 650 mg 08/23/16 10:00 08/25/16 10:11 Sodium Bicarbonate - PO 650 mg DAILY [facility] Administration Trazodone HCl 300 mg 08/22/16 22:00 08/24/16 21:09 Desyrel - PO 300 mg HS [facility] Administration Zinc Sulfate 220 mg 08/23/16 10:00 08/25/16 10:15 Orazinc - PO 220 mg DAILY [facility] Administration Head, Facial Bones, Cervical Spine CT: no intracranial/extracranial bleeding, no edema, no mass, no evidence of ischemia, + R supraorbital soft tissue swelling with laceration, no facial or spinal Fx MRI C-spine: prevertebral, retropharyngeal fluid collection/edema, likely non- infectious in etiology CXR: no acute pathology Echo: mild LVH ; LV mildy dilated ; preserved LVSF; no regional wall motin abnormalities; Mild to mod MR; Mod TR: RVSP 30-40mmhg; mild pulmonary hypertention; left and right atria mod dilated; mild aortic root dilation; small pericardial effusion <1cm MRI: left Foot + osteomyelitis of left foot, distal tibia, lateral and medial malleolus ASSESSMENT/PLAN: Pt is a 60 yo M with PMHx of DM, HTN, diabetic neuropathy with left foot amputation, and CKD who presents to the ED s/p syncopal episode from standing position with +LOC and +head trauma. Pt was found to have a Hgb of 3.7 and WBC of 26.1 upon presentation. #Syncope most likely related to anemia: -most likely anemia of chronic disease (CKD) with anemia from acute infection from osteomyelitits -heme >8 x 2 days -multiple transfusion PRBC; keep hemoglobin >7 -FOBT negative -Pt reports Hx of colonoscopy in December of 2015 with subsequent Bx of colonic polyps negative. Pt reports nml EGD done around the same time. Both performed by Dr. Etienne; no need for another colonoscopy at this time -low serum iron; low TIBC, low iron saturation, high ferritin in setting of acute infection -hematology workup #sepsis secondary to osteomyelitis: getting I&D -wbc trending down -vitals stable -cont vanco, follow trough; started Unasyn today -blood culture +beta hemolytic strep Group G -wound culture same -MRI +osteomyelitis; - Dr. Galvan consulted/old sensitivities noted from previous infection/i discussed with Dr. Barrera #photophobia: improved -orbital CT negative -optho consult #Hyperkalemia; 5.4; -Medically treated with Ca gluconate, Insulin/D50, and kaexylate on 08/20 -Continue to trend -maintain low K diet #hyperphosphatemia: start binder if >5.5 #Acute on chronic renal failure: improved -Renal US showing bilateral echogenic kidneys: this relates to chronic kidney disease -can d/c fluids; -Renal consult #Retropharyngeal/prevertebral edema on MRI -MRI does not correlate to active infection -ENT consulted, does not feel this is an abscess; no intervention from him at this time # L LE swelling -Duplex US negative for DVT # Diabetes -levemir increased to 22 U bid -insulin ss -BGM FEN: Fluids: po Electrolytes:trend Diet: diabetic; low K DVT ppx: scds Disposition: continue work up and management Visit type - Emergency Visit Emergency Visit: Yes ED Registration Date: 08/19/16 Care time: The patient presented to the Emergency Department on the above date and was hospitalized for further evaluation of their emergent condition. - New Patient This patient is new to me today: No - Critical Care Critical Care patient: Yes Total Critical Care Time (in minutes): 35 Critical Care Statement: The care of this patient involved high complexity decision making to prevent further life threatening deterioration of the patient 's condition and/or to evalute & treat vital organ system(s) failure or risk of failure.
--- NOTE | 2016-08-25 13:48 | PN ---
Teaching Attending Note Name of Resident: Sis Barrett ATTENDING PHYSICIAN STATEMENT I saw and evaluated the patient. I reviewed the resident's note and discussed the case with the resident. I agree with the resident's findings and plan as documented. SUBJECTIVE: OBJECTIVE: Vital Signs Period Temp Pulse Resp BP Sys/Gutierrez Pulse Ox Last 24 Hr 97.8 F-98.3 F 80-95 16-24 116-161/42-96 98-98 ASSESSMENT AND PLAN:
[2016-08-25] MEDS ORDERED: INSULIN (NOVOLOG) ASPART 100 UNITS/ML 10ML VIAL ONE (21:35)
[2016-08-25] MEDS ORDERED: traZODone HCL 50 MG TABLET (FP) ONE (21:35)
[2016-08-25] MEDS: MIRTAZAPINE 15 MG TABLET (FP) PO SCH (21:39)
[2016-08-25] MEDS: traZODone HCL 100 MG TABLET (FP) PO SCH (21:39)
[2016-08-25] MEDS: METHYL SALICYLATE/MENTHOL OINT 30 GM TUBE TP SCH (23:12)
[2016-08-26] MEDS ORDERED: PT OWN MED DRAWER 7, Y5N ONE ×6 (01:26→22:35)
[2016-08-26] MEDS: AMPICILLIN NA/SULBACTAM NA 3 GM in SODIUM CHLORIDE 100 ML IVPB SCH ×3 (01:34→17:59)
[2016-08-26] MEDS: oxyCODONE HCL 5 MG TABLET PO PRN ×3 (05:39→22:12)
[2016-08-26] MEDS: INSULIN DETEMIR 100 UNITS/ML MDV SQ SCH ×2 (06:12→22:12)
[2016-08-26] MEDS: INSULIN SLIDING SCALE (NOVOLOG) 1 VIAL SQ SCH ×3 (06:12→16:55)
[2016-08-26 08:26] LABS: BASOPHIL 0.6 % (0-2.0); EOSINOPHIL 3.3 % (0-4.5); MCH 23.9 pg (25.7-33.7); MCHC 31.7 g/dl (32.0-35.9); MEAN CELL VOLUME 75.6 fl (80-96); MEAN PLT VOLUME 7.1 fl (7.5-11.1); NEUTROPHILS 75.7 % (42.8-82.8); PLATELET COUNT 580 K/MM3 (134-434); RDW 26.5 % (11.9-15.9); WHITE BLOOD COUNT 13.1 K/mm3 (4.0-10.0)
[2016-08-26] MEDS: CALCIUM ACETATE 667 MG CAPSULE (FP) PO SCH ×2 (08:52→12:07)
[2016-08-26 09:00] LABS: ALBUMIN 1.8 g/dl (3.4-5.0); CALCIUM 8.1 mg/dL (8.5-10.1); MAGNESIUM 1.9 mg/dL (1.8-2.4)
[2016-08-26] MEDS: FERROUS SO4 325 MG TABLET (FP) PO SCH (09:02)
[2016-08-26] MEDS: SODIUM BICARBONATE 650 MG TABLET PO SCH (09:02)
[2016-08-26] MEDS: METHYL SALICYLATE/MENTHOL OINT 30 GM TUBE TP SCH ×2 (09:03→22:12)
[2016-08-26] MEDS: PREGABALIN 50 MG CAPSULE PO SCH ×2 (09:03→22:11)
[2016-08-26] MEDS: PANTOPRAZOLE 20 MG TABLET (FP) PO SCH (09:03)
[2016-08-26] MEDS: ASCORBIC ACID 500 MG TABLET (FP) PO SCH (09:03)
[2016-08-26] MEDS: FOLIC ACID 1 MG TABLET (FP) PO SCH (09:03)
[2016-08-26] MEDS: amLODIPine BESYLATE 10 MG TABLET (FP) PO SCH (09:03)
[2016-08-26] MEDS: DULoxetine HCL 30 MG CAPSULE.DR (FP) PO SCH (09:03)
[2016-08-26 09:14] LABS: BILIRUBIN,TOTAL 0.3 mg/dL (0.2-1.0); COCKROFT - GAULT 49.25; CREATININE 2.2 mg/dL (0.7-1.3); PHOSPHOROUS 5.9 mg/dL (2.5-4.9)
[2016-08-26] MEDS: ZINC SULFATE 220 MG CAPSULE (FP) PO SCH (09:45)
[2016-08-26] MEDS ORDERED: INSULIN (NOVOLOG) ASPART 100 UNITS/ML 10ML VIAL ONE (11:52)
[2016-08-26] MEDS: DOXAZOSIN MESYLATE 4 MG TABLET PO SCH (12:07)
--- NOTE | 2016-08-26 12:10 | PN ---
Physical Exam: SUBJECTIVE: Patient seen and examined. He complains of pain in his left foot. OBJECTIVE: Vital Signs Period Temp Pulse Resp BP Sys/Gutierrez Pulse Ox Last 24 Hr 97.6 F-99.2 F 80-84 20-20 137-148/71-89 90-90 GENERAL: The patient is awake, alert, and fully oriented, in no acute distress. LUNGS: Breath sounds equal, clear to auscultation bilaterally, no wheezes, no crackles, no accessory muscle use. HEART: Regular rate and rhythm, S1, S2 without murmur, rub or gallop. ABDOMEN: Soft, nontender, nondistended, normoactive bowel sounds, no guarding, no rebound, no hepatosplenomegaly, no masses. EXTREMITIES: 1+ edema LLE Laboratory Results - last 24 hr 08/20/16 08/25/16 08/25/16 17:10 16:30 21:15 WBC RBC Hgb Hct MCV MCHC RDW Plt Count MPV Neutrophils % Lymphocytes % Monocytes % Eosinophils % Basophils % Sodium Potassium Chloride Carbon Dioxide Anion Gap BUN Creatinine Creat Clearance w eGFR POC Glucometer [phone] Random Glucose Calcium Phosphorus Magnesium Total Bilirubin AST ALT Alkaline Phosphatase Total Protein Albumin Random Vancomycin Crossmatch See Detail 08/26/16 08/26/16 08/26/16 05:31 06:35 07:05 WBC RBC Hgb Hct MCV MCHC RDW Plt Count MPV Neutrophils % Lymphocytes % Monocytes % Eosinophils % Basophils % Sodium 142 Potassium 5.6 H Chloride 114 H Carbon Dioxide 21 Anion Gap 7 L BUN 50 H Creatinine 2.2 H Creat Clearance w eGFR 30.68 POC Glucometer 54 85 Random Glucose 50 L D Calcium 8.1 L Phosphorus 5.9 H Magnesium 1.9 Total Bilirubin 0.3 D AST 20 D ALT 16 D Alkaline Phosphatase 121 H Total Protein 8.0 Albumin 1.8 L Random Vancomycin 14.404 Crossmatch 08/26/16 07:05 WBC 13.1 H RBC 3.57 L Hgb 8.5 L Hct 27.0 L MCV 75.6 L MCHC 31.7 L RDW 26.5 H Plt Count 580 H MPV 7.1 L Neutrophils % 75.7 Lymphocytes % 12.9 D Monocytes % 7.5 Eosinophils % 3.3 Basophils % 0.6 Sodium Potassium Chloride Carbon Dioxide Anion Gap BUN Creatinine Creat Clearance w eGFR POC Glucometer Random Glucose Calcium Phosphorus Magnesium Total Bilirubin AST ALT Alkaline Phosphatase Total Protein Albumin Random Vancomycin Crossmatch Active Medications Generic Name Dose Route Start Last Admin Trade Name Tessa PRN Reason Stop Dose Admin Albuterol Sulfate 2 puff 08/22/16 19:12 Ventolin Hfa Inhaler - IH Q4H PRN WHEEZING Amlodipine Besylate 10 mg 08/23/16 10:00 08/26/16 09:03 Norvasc - PO 10 mg DAILY [facility] Administration Ascorbic Acid 500 mg 08/23/16 10:00 08/26/16 09:03 Vitamin C - PO 500 mg DAILY [facility] Administration Calcium Acetate 1,334 mg 08/24/16 17:30 08/26/16 12:07 Phoslo - PO 08/26/16 17:29 1,334 mg TIDCM [facility] Administration Doxazosin Mesylate 4 mg 08/23/16 10:00 08/26/16 12:07 Cardura - PO 4 mg DAILY [facility] Administration Duloxetine HCl 30 mg 08/23/16 10:00 08/26/16 09:03 Cymbalta - PO 30 mg DAILY [facility] Administration Fentanyl 1 patch 08/23/16 12:30 08/23/16 12:42 Duragesic 25mcg Patch - TD 08/30/16 12:21 1 patch Q72H [facility] Administration Ferrous Sulfate 325 mg 08/23/16 10:00 08/26/16 09:02 Feosol - PO 325 mg DAILY [facility] Administration Folic Acid 1 mg 08/23/16 10:00 08/26/16 09:03 Folic Acid - PO 1 mg DAILY [facility] Administration Ampicillin Sodium/Sulbactam 100 mls @ 200 mls/hr 08/24/16 18:00 08/26/16 09:04 Sodium 3 gm/ Sodium Chloride IVPB 200 mls/hr Q8H-IV [facility] Administration Insulin Aspart 1 vial 08/22/16 22:00 08/26/16 12:07 Novolog Vial Sliding Scale - SQ Not Given ACHS [facility] Protocol Insulin Detemir 22 units 08/25/16 13:11 08/26/16 06:12 Levemir Vial SQ Not Given BID@0700,2200 [facility] Methyl Salicylate 1 applic 08/25/16 22:00 08/26/16 09:03 Sterling-Greer - TP 1 applic BID [facility] Administration Mirtazapine 30 mg 08/22/16 22:00 08/25/16 21:39 Remeron - PO 30 mg HS [facility] Administration Miscellaneous 1 each 08/23/16 12:20 Duragesic Patch Waste TD PRN PRN PAIN Oxycodone HCl 5 mg 08/25/16 22:28 08/26/16 05:39 Roxicodone - PO 5 mg Q6H PRN Administration PAIN Pantoprazole Sodium 20 mg 08/23/16 10:00 08/26/16 09:03 Protonix - PO 20 mg DAILY [facility] Administration Pregabalin 100 mg 08/22/16 22:00 08/26/16 09:03 Lyrica - PO 100 mg BID [facility] Administration Sodium Bicarbonate 650 mg 08/23/16 10:00 08/26/16 09:02 Sodium Bicarbonate - PO 650 mg DAILY [facility] Administration Trazodone HCl 300 mg 08/22/16 22:00 08/25/16 21:39 Desyrel - PO 300 mg HS [facility] Administration Zinc Sulfate 220 mg 08/23/16 10:00 08/26/16 09:45 Orazinc - PO 220 mg DAILY [facility] Administration ASSESSMENT/PLAN: Hypoglycemia
[2016-08-26] MEDS: fentaNYL 25mcg/hr PATCH.TD72 TD SCH (12:48)
--- NOTE | 2016-08-26 13:11 | PN ---
Progress Note (short form) - Note Progress Note: Feels about the same. Chronic pain in the left LE. No CP or SOB. Intake & Output 08/23/16 08/24/16 08/25/16 08/26/16 23:59 23:59 23:59 23:59 Intake Total 2590 1440 1460 240 Output Total 2800 2650 2700 400 Balance -210 -1210 -1240 -160 Weight 222 lb 8 oz 222 lb 7.143 oz 215 lb Last Vital Signs Temp Pulse Resp BP Pulse Ox 99.2 F 84 20 148/89 90 L 08/26/16 06:00 08/26/16 06:00 08/26/16 06:00 08/26/16 06:00 08/25/16 22:00 Active Medications Albuterol Sulfate (Ventolin Hfa Inhaler -) 2 puff IH Q4H PRN PRN Reason: WHEEZING Amlodipine Besylate (Norvasc -) 10 mg PO DAILY [facility] Last Admin: 08/26/16 09:03 Dose: 10 mg Ascorbic Acid (Vitamin C -) 500 mg PO DAILY [facility] Last Admin: 08/26/16 09:03 Dose: 500 mg Calcium Acetate (Phoslo -) 1,334 mg PO TIDCM [facility] Stop: 08/26/16 17:29 Last Admin: 08/26/16 12:07 Dose: 1,334 mg Doxazosin Mesylate (Cardura -) 4 mg PO DAILY [facility] Last Admin: 08/26/16 12:07 Dose: 4 mg Duloxetine HCl (Cymbalta -) 30 mg PO DAILY [facility] Last Admin: 08/26/16 09:03 Dose: 30 mg Fentanyl (Duragesic 25mcg Patch -) 1 patch TD Q72H [facility] Stop: 08/30/16 12:21 Last Admin: 08/26/16 12:48 Dose: 1 patch Ferrous Sulfate (Feosol -) 325 mg PO DAILY [facility] Last Admin: 08/26/16 09:02 Dose: 325 mg Folic Acid (Folic Acid -) 1 mg PO DAILY [facility] Last Admin: 08/26/16 09:03 Dose: 1 mg Ampicillin Sodium/Sulbactam (Sodium 3 gm/ Sodium Chloride) 100 mls @ 200 mls/ hr IVPB Q8H-IV [facility] Last Admin: 08/26/16 09:04 Dose: 200 mls/hr Insulin Aspart (Novolog Vial Sliding Scale -) 1 vial SQ TIDAC [facility] PRN Reason: Protocol Insulin Detemir (Levemir Vial) 20 units SQ BID@0700,2200 [facility] Methyl Salicylate (Sterling-Greer -) 1 applic TP BID [facility] Last Admin: 08/26/16 09:03 Dose: 1 applic Mirtazapine (Remeron -) 30 mg PO HS [facility] Last Admin: 08/25/16 21:39 Dose: 30 mg Miscellaneous (Duragesic Patch Waste) 1 each TD PRN PRN PRN Reason: PAIN Last Admin: 08/26/16 12:56 Dose: 1 each Oxycodone HCl (Roxicodone -) 10 mg PO Q6H PRN PRN Reason: PAIN Last Admin: 08/26/16 12:48 Dose: 10 mg Pantoprazole Sodium (Protonix -) 20 mg PO DAILY [facility] Last Admin: 08/26/16 09:03 Dose: 20 mg Pregabalin (Lyrica -) 100 mg PO BID [facility] Last Admin: 08/26/16 09:03 Dose: 100 mg Sodium Bicarbonate (Sodium Bicarbonate -) 650 mg PO DAILY [facility] Last Admin: 08/26/16 09:02 Dose: 650 mg Trazodone HCl (Desyrel -) 300 mg PO HS [facility] Last Admin: 08/25/16 21:39 Dose: 300 mg Zinc Sulfate (Orazinc -) 220 mg PO DAILY [facility] Last Admin: 08/26/16 09:45 Dose: 220 mg OBJECTIVE: Gen: NAD at rest Heart: RRR Lung: decreased breath sounds at the bases Abd: soft, nontender Ext: + edema, dressing mildly saturated Laboratory Results - last 24 hr 08/20/16 08/25/16 08/25/16 17:10 16:30 21:15 WBC RBC Hgb Hct MCV MCHC RDW Plt Count MPV Neutrophils % Lymphocytes % Monocytes % Eosinophils % Basophils % Sodium Potassium Chloride Carbon Dioxide Anion Gap BUN Creatinine Creat Clearance w eGFR POC Glucometer 175.62199 242 Random Glucose Calcium Phosphorus Magnesium Total Bilirubin AST ALT Alkaline Phosphatase Total Protein Albumin Random Vancomycin Crossmatch See Detail 08/26/16 08/26/16 08/26/16 05:31 06:35 07:05 WBC RBC Hgb Hct MCV MCHC RDW Plt Count MPV Neutrophils % Lymphocytes % Monocytes % Eosinophils % Basophils % Sodium 142 Potassium 5.6 H Chloride 114 H Carbon Dioxide 21 Anion Gap 7 L BUN 50 H Creatinine 2.2 H Creat Clearance w eGFR 30.68 POC Glucometer 54 85 Random Glucose 50 L D Calcium 8.1 L Phosphorus 5.9 H Magnesium 1.9 Total Bilirubin 0.3 D AST 20 D ALT 16 D Alkaline Phosphatase 121 H Total Protein 8.0 Albumin 1.8 L Random Vancomycin 14.404 Crossmatch 08/26/16 08/26/16 07:05 12:05 WBC 13.1 H RBC 3.57 L Hgb 8.5 L Hct 27.0 L MCV 75.6 L MCHC 31.7 L RDW 26.5 H Plt Count 580 H MPV 7.1 L Neutrophils % 75.7 Lymphocytes % 12.9 D Monocytes % 7.5 Eosinophils % 3.3 Basophils % 0.6 Sodium Potassium Chloride Carbon Dioxide Anion Gap BUN Creatinine Creat Clearance w eGFR POC Glucometer 148 Random Glucose Calcium Phosphorus Magnesium Total Bilirubin AST ALT Alkaline Phosphatase Total Protein Albumin Random Vancomycin Crossmatch ASSESSMENT AND PLAN: Syncope Anemia Left foot ulcer infection s/p debridement Gram Positive Bacteremia Sepsis Acute on Chronic Renal Failure Hyperkalemia DM (?) Nerve impingement causing symptoms - Local wound care - ABX - Pain control - monitor urine output, creatinine - glucose monitoring - PO as tolerated - OOB to chair - PT/OT Dr Butt
[2016-08-26] MEDS ORDERED: VANCOMYCIN 1 GRAM (PRE-DOCKED) 250 ML IVPB ONE (14:41)
[2016-08-26] MEDS: traZODone HCL 100 MG TABLET (FP) PO SCH (22:11)
[2016-08-26] MEDS: MIRTAZAPINE 15 MG TABLET (FP) PO SCH (22:11)
[2016-08-27] MEDS ORDERED: PT OWN MED DRAWER 7, Y5N ONE ×3 (01:48→22:21)
[2016-08-27] MEDS: AMPICILLIN NA/SULBACTAM NA 3 GM in SODIUM CHLORIDE 100 ML IVPB SCH ×3 (02:03→18:44)
[2016-08-27] MEDS: INSULIN DETEMIR 100 UNITS/ML MDV SQ SCH ×2 (06:00→22:02)
[2016-08-27] MEDS: INSULIN SLIDING SCALE (NOVOLOG) 1 VIAL SQ SCH ×3 (06:49→16:29)
[2016-08-27 07:18] LABS: BASOPHIL 0.8 % (0-2.0); EOSINOPHIL 2.5 % (0-4.5); MCH 24.1 pg (25.7-33.7); MCHC 31.8 g/dl (32.0-35.9); MEAN CELL VOLUME 75.9 fl (80-96); MEAN PLT VOLUME 6.8 fl (7.5-11.1); NEUTROPHILS 77.8 % (42.8-82.8); PLATELET COUNT 466 K/MM3 (134-434); WHITE BLOOD COUNT 13.3 K/mm3 (4.0-10.0)
[2016-08-27 07:36] LABS: CALCIUM 8.1 mg/dL (8.5-10.1); COCKROFT - GAULT 47.11; CREATININE 2.3 mg/dL (0.7-1.3)
[2016-08-27 07:48] LABS: PHOSPHOROUS 6.3 mg/dL (2.5-4.9)
[2016-08-27] MEDS ORDERED: INSULIN REGULAR HUMAN 100 UNITS/ML *VIAL IVPUSH ONE (09:23)
[2016-08-27] MEDS ORDERED: CALCIUM GLUCONATE 10% - 1,000 MG/10 ML VIAL IVPB ONE (09:23)
[2016-08-27] MEDS ORDERED: DEXTROSE 50%-WATER 50 ML VIAL IVPUSH ONE ×2 (09:24→16:26)
[2016-08-27] MEDS ORDERED: SODIUM POLYSTYRENE SULFONATE 15 GM/60 ML BOTTLE PO ONE (09:26)
[2016-08-27] MEDS: DULoxetine HCL 30 MG CAPSULE.DR (FP) PO SCH (10:01)
[2016-08-27] MEDS: SODIUM BICARBONATE 650 MG TABLET PO SCH (10:01)
[2016-08-27] MEDS: PREGABALIN 50 MG CAPSULE PO SCH ×2 (10:01→21:57)
[2016-08-27] MEDS: FERROUS SO4 325 MG TABLET (FP) PO SCH (10:01)
[2016-08-27] MEDS: amLODIPine BESYLATE 10 MG TABLET (FP) PO SCH (10:01)
[2016-08-27] MEDS: ASCORBIC ACID 500 MG TABLET (FP) PO SCH (10:01)
[2016-08-27] MEDS: PANTOPRAZOLE 20 MG TABLET (FP) PO SCH (10:01)
[2016-08-27] MEDS: ZINC SULFATE 220 MG CAPSULE (FP) PO SCH (10:01)
[2016-08-27] MEDS: FOLIC ACID 1 MG TABLET (FP) PO SCH (10:01)
[2016-08-27] MEDS ORDERED: INSULIN (NOVOLOG) ASPART 100 UNITS/ML 10ML VIAL ONE (10:12)
[2016-08-27] MEDS: oxyCODONE HCL 5 MG TABLET PO PRN ×2 (10:18→20:31)
[2016-08-27] MEDS: METHYL SALICYLATE/MENTHOL OINT 30 GM TUBE TP SCH ×2 (10:25→22:00)
[2016-08-27] MEDS: DOXAZOSIN MESYLATE 4 MG TABLET PO SCH (11:21)
--- NOTE | 2016-08-27 11:22 | PN ---
Progress Note (short form) - Note Progress Note: Renal Follow up for FROYLAN/CKD with Hyperkalemia Pt seen and examined at the bedside continues to have tenderness in the neck no sob or chest pain Vital Signs Temperature 97.7 F 08/27/16 06:00 Pulse Rate 86 08/27/16 06:00 Respiratory Rate 20 08/27/16 06:00 Blood Pressure 149/94 08/26/16 22:00 O2 Sat by Pulse Oximetry (%) 91 L 08/26/16 22:00 Intake & Output 08/24/16 08/25/16 08/26/16 08/27/16 23:59 23:59 23:59 23:59 Intake Total 1440 1460 480 Output Total 2650 2700 1700 650 Balance -1210 -1240 -1220 -650 Weight 222 lb 7.143 oz 215 lb Gen: NAD, awake and alert, drowsy HEENT: No JVD CVS: RRR, No M/R Lungs: Dec BS at lung bases, no rales Abd: NT/ND Ext: 1+ edema in LE, Left TMA CBC, BMP 08/27/16 05:41 08/27/16 05:41 Current Medications Albuterol Sulfate (Ventolin Hfa Inhaler -) 2 puff IH Q4H PRN PRN Reason: WHEEZING Amlodipine Besylate (Norvasc -) 10 mg PO DAILY [facility] Last Admin: 08/27/16 10:01 Dose: 10 mg Ascorbic Acid (Vitamin C -) 500 mg PO DAILY [facility] Last Admin: 08/27/16 10:01 Dose: 500 mg Calcium Acetate (Phoslo -) 1,334 mg PO TIDCM [facility] Doxazosin Mesylate (Cardura -) 4 mg PO DAILY [facility] Last Admin: 08/26/16 12:07 Dose: 4 mg Duloxetine HCl (Cymbalta -) 30 mg PO DAILY [facility] Last Admin: 08/27/16 10:01 Dose: 30 mg Fentanyl (Duragesic 25mcg Patch -) 1 patch TD Q72H [facility] Stop: 08/30/16 12:21 Last Admin: 08/26/16 12:48 Dose: 1 patch Ferrous Sulfate (Feosol -) 325 mg PO DAILY [facility] Last Admin: 08/27/16 10:01 Dose: 325 mg Folic Acid (Folic Acid -) 1 mg PO DAILY [facility] Last Admin: 08/27/16 10:01 Dose: 1 mg Ampicillin Sodium/Sulbactam (Sodium 3 gm/ Sodium Chloride) 100 mls @ 200 mls/ hr IVPB Q8H-IV [facility] Last Admin: 08/27/16 10:01 Dose: 200 mls/hr Insulin Aspart (Novolog Vial Sliding Scale -) 1 vial SQ TIDAC [facility] PRN Reason: Protocol Last Admin: 08/27/16 06:49 Dose: 2 units Insulin Detemir (Levemir Vial) 20 units SQ BID@0700,2200 [facility] Last Admin: 08/27/16 06:00 Dose: Not Given Methyl Salicylate (Sterling-Greer -) 1 applic TP BID [facility] Last Admin: 08/27/16 10:25 Dose: 1 applic Mirtazapine (Remeron -) 30 mg PO HS [facility] Last Admin: 08/26/16 22:11 Dose: 30 mg Miscellaneous (Duragesic Patch Waste) 1 each TD PRN PRN PRN Reason: PAIN Last Admin: 08/26/16 12:56 Dose: 1 each Oxycodone HCl (Roxicodone -) 10 mg PO Q6H PRN PRN Reason: PAIN Last Admin: 08/27/16 10:18 Dose: 10 mg Pantoprazole Sodium (Protonix -) 20 mg PO DAILY [facility] Last Admin: 08/27/16 10:01 Dose: 20 mg Pregabalin (Lyrica -) 100 mg PO BID [facility] Last Admin: 08/27/16 10:01 Dose: 100 mg Sodium Bicarbonate (Sodium Bicarbonate -) 650 mg PO DAILY [facility] Last Admin: 08/27/16 10:01 Dose: 650 mg Trazodone HCl (Desyrel -) 300 mg PO HS [facility] Last Admin: 08/26/16 22:11 Dose: 300 mg Zinc Sulfate (Orazinc -) 220 mg PO DAILY [facility] Last Admin: 08/27/16 10:01 Dose: 220 mg A/P 60 year old Gentleman with PMhx of CKD (baseline unclear), Hypertension, IDDM, PVD who presented s/p syncopal episode and found to have acute Anemia with Hgb of 3.7 and BUN/Cr of 41/2.7 and K of 6.8. #FROYLAN -> CKD Renal function stable at this time continue renal diet no indication for PRESIDENT Start lasix 40mg Daily for volume management continue sodium bicarb PO Dose all meds for Cr Cl less then 30 #Hyperphosphatemia started on Phoslo TID with meals Corrected Ca is 9.8 PTH pending #Acute Anemia Heme Following Transfuse as per primary team Will likely need ADRIAN given CKD iron saturation is very low ferritin is elevated but in setting of infection #Bactermia/Sepsis continue Abx as per ID Dose Vanco by levels #Hypertension Continue amlodipine and Gerard Jansen DO
[2016-08-27] MEDS: CALCIUM ACETATE 667 MG CAPSULE (FP) PO SCH ×2 (13:51→16:32)
--- NOTE | 2016-08-27 14:47 | PN ---
Physical Exam: SUBJECTIVE: Patient seen and examined. He is still complaining of mild neck pain. He denies diarrhea, pain in LLE. No fever, no overnight events. OBJECTIVE: Vital Signs Period Temp Pulse Resp BP Sys/Gutierrez Pulse Ox Last 24 Hr 97.7 F-98.8 F 82-86 20-20 149-161/94-97 90-91 GENERAL: The patient is awake, alert, and fully oriented, in no acute distress. HEAD: Normal with no signs of trauma. EYES: PERRL, extraocular movements intact, sclera anicteric, conjunctiva clear. No ptosis. ENT: Ears normal, nares patent, oropharynx clear without exudates, moist mucous membranes. NECK: Trachea midline, limited range of motion due to pain, supple. LUNGS: Breath sounds equal, clear to auscultation bilaterally, no wheezes, no crackles, no accessory muscle use. HEART: Regular rate and rhythm, S1, S2 without murmur, rub or gallop. ABDOMEN: Soft, nontender, nondistended, normoactive bowel sounds, no guarding, no rebound, no hepatosplenomegaly, no masses. EXTREMITIES: 1+ pulses, warm, 1+ peripheral edema in LE B/L, RLE: 1 toe amputated, deformities in second and fourth toe, no redness, swelling, edema, LLE: amputated MTP, swollen, oozing wound and fluctuation on medial side of malleous, draining purulent pink/yellow fluid, no crepitus, 2+ edema in LLE. NEUROLOGICAL:No facial asymmetry. Normal speech, gait not observed. PSYCH: Normal mood, normal affect. SKIN: Warm, dry, normal turgor, no rashes or lesions noted Laboratory Results - last 24 hr 08/23/16 08/26/16 08/26/16 08:10 16:26 21:01 WBC RBC Hgb Hct MCV MCHC RDW Plt Count MPV Neutrophils % Lymphocytes % Monocytes % Eosinophils % Basophils % Sodium Potassium Chloride Carbon Dioxide Anion Gap BUN Creatinine POC Glucometer 173 275 Random Glucose Calcium Phosphorus Random Vancomycin Blood Type B POSITIVE Antibody Screen Negative Crossmatch See Detail 08/27/16 08/27/16 08/27/16 05:41 05:41 05:41 WBC 13.3 H RBC 3.15 L Hgb 7.6 L D Hct 23.9 L MCV 75.9 L MCHC 31.8 L RDW 27.0 H Plt Count 466 H MPV 6.8 L Neutrophils % 77.8 Lymphocytes % 12.0 Monocytes % 6.9 Eosinophils % 2.5 Basophils % 0.8 Sodium 142 Potassium 5.7 H Chloride 113 H Carbon Dioxide 22 Anion Gap 7 L BUN 55 H Creatinine 2.3 H POC Glucometer Random Glucose 140 H D Calcium 8.1 L Phosphorus 6.3 H Random Vancomycin 16.666 Blood Type Antibody Screen Crossmatch 08/27/16 08/27/16 05:45 11:53 WBC RBC Hgb Hct MCV MCHC RDW Plt Count MPV Neutrophils % Lymphocytes % Monocytes % Eosinophils % Basophils % Sodium Potassium Chloride Carbon Dioxide Anion Gap BUN Creatinine POC Glucometer 159 63 Random Glucose Calcium Phosphorus Random Vancomycin Blood Type Antibody Screen Crossmatch Active Medications Generic Name Dose Route Start Last Admin Trade Name Freq PRN Reason Stop Dose Admin Albuterol Sulfate 2 puff 08/22/16 19:12 Ventolin Hfa Inhaler - IH Q4H PRN WHEEZING Amlodipine Besylate 10 mg 08/23/16 10:00 08/27/16 10:01 Norvasc - PO 10 mg DAILY [facility] Administration Ascorbic Acid 500 mg 08/23/16 10:00 08/27/16 10:01 Vitamin C - PO 500 mg DAILY [facility] Administration Calcium Acetate 1,334 mg 08/27/16 12:00 08/27/16 13:51 Phoslo - PO Not Given TIDCM [facility] Doxazosin Mesylate 4 mg 08/23/16 10:00 08/27/16 11:21 Cardura - PO 4 mg DAILY [facility] Administration Duloxetine HCl 30 mg 08/23/16 10:00 08/27/16 10:01 Cymbalta - PO 30 mg DAILY [facility] Administration Fentanyl 1 patch 08/23/16 12:30 08/26/16 12:48 Duragesic 25mcg Patch - TD 08/30/16 12:21 1 patch Q72H [facility] Administration Ferrous Sulfate 325 mg 08/23/16 10:00 08/27/16 10:01 Feosol - PO 325 mg DAILY [facility] Administration Folic Acid 1 mg 08/23/16 10:00 08/27/16 10:01 Folic Acid - PO 1 mg DAILY [facility] Administration Furosemide 40 mg 08/28/16 10:00 Lasix - PO DAILY [facility] Ampicillin Sodium/Sulbactam 100 mls @ 200 mls/hr 08/24/16 18:00 08/27/16 10:01 Sodium 3 gm/ Sodium Chloride IVPB 200 mls/hr Q8H-IV [facility] Administration Insulin Aspart 1 vial 08/26/16 16:30 08/27/16 11:21 Novolog Vial Sliding Scale - SQ Not Given TIDAC [facility] Protocol Insulin Detemir 20 units 08/26/16 12:14 08/27/16 06:00 Levemir Vial SQ Not Given BID@0700,2200 [facility] Methyl Salicylate 1 applic 08/25/16 22:00 08/27/16 10:25 Sterling-Greer - TP 1 applic BID [facility] Administration Mirtazapine 30 mg 08/22/16 22:00 08/26/16 22:11 Remeron - PO 30 mg HS [facility] Administration Miscellaneous 1 each 08/23/16 12:20 08/26/16 12:56 Duragesic Patch Waste TD 1 each PRN PRN Administration PAIN Oxycodone HCl 10 mg 08/26/16 12:11 08/27/16 10:18 Roxicodone - PO 10 mg Q6H PRN Administration PAIN Pantoprazole Sodium 20 mg 08/23/16 10:00 08/27/16 10:01 Protonix - PO 20 mg DAILY [facility] Administration Pregabalin 100 mg 08/22/16 22:00 08/27/16 10:01 Lyrica - PO 100 mg BID [facility] Administration Sodium Bicarbonate 650 mg 08/23/16 10:00 08/27/16 10:01 Sodium Bicarbonate - PO 650 mg DAILY [facility] Administration Trazodone HCl 300 mg 08/22/16 22:00 08/26/16 22:11 Desyrel - PO 300 mg HS [facility] Administration Zinc Sulfate 220 mg 08/23/16 10:00 08/27/16 10:01 Orazinc - PO 220 mg DAILY [facility] Administration MRI C-spine: prevertebral, retropharyngeal fluid collection/edema, likely non- infectious in etiology MRI: left Foot + osteomyelitis of left foot, distal tibia, lateral and medial malleolus ASSESSMENT/PLAN: 60 year old male with a significant PMH of HTN, IDDM, PAD with multiple amputations, h/o of osteomyelitis in left foot, diabetic nephropathy presents to ED via EMS after an episode of syncope that occurred at the assisted living facility.The patient reports that he was in elevator when he had LOC. he states that he felt lightheaded before the syncopal episode. He was admitted to ICU. L foot fluid collection; -osteomyelitis: Unasyn, today it is 4, will check Vancomycin level tomorrow -scheduled for I&O today, f/u podiatry and surgery recommendation -MRI done, osteomyeltis of the residual metatarsals, greater and lesser tarsal bones and of the tibia and fibula -blood positive for Staph coag neg, Staph epidermidis, beta hemolytic Strep G, blood cx -abscess culture beta hemolytic Strep group G Watery diarrhea: -diarrhea resolved Prevertebral, retropharyngeal fluid collection, -edema likely of noninfectious etiology -ENT saw the pt , no further treatment recommended Severe Anemia Hypercalcemia Syncope Hyperkalemia Acute on chronic renal failure Hyperphosphatemia IDDM Hypertension Dispo: We will continue to follow the patient. Thank you for this consultative opportunity. Problem List - Problems (1) FROYLAN (acute kidney injury) Code(s): N17.9 - ACUTE KIDNEY FAILURE, UNSPECIFIED (2) Hyperkalemia Code(s): E87.5 - HYPERKALEMIA (3) Severe anemia Code(s): D64.9 - ANEMIA, UNSPECIFIED (4) Throat discomfort Code(s): R07.0 - PAIN IN THROAT (5) Edema of both legs Code(s): R60.0 - LOCALIZED EDEMA (6) S/P amputation Code(s): Z89.9 - ACQUIRED ABSENCE OF LIMB, UNSPECIFIED (7) Hyperglycemia Code(s): R73.9 - HYPERGLYCEMIA, UNSPECIFIED (8) Osteoarthritis Code(s): M19.90 - UNSPECIFIED OSTEOARTHRITIS, UNSPECIFIED SITE (9) Chronic pain Code(s): G89.29 - OTHER CHRONIC PAIN (10) 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 Code(s): E11.9 - TYPE 2 DIABETES MELLITUS WITHOUT COMPLICATIONS (11) Diabetic neuropathy Code(s): E11.40 - TYPE 2 DIABETES MELLITUS WITH DIABETIC NEUROPATHY, UNSP (12) Foot infection Code(s): L08.9 - LOCAL INFECTION OF THE SKIN AND SUBCUTANEOUS TISSUE, UNSP (13) GERD (gastroesophageal reflux disease) Code(s): K21.9 - GASTRO-ESOPHAGEAL REFLUX DISEASE WITHOUT ESOPHAGITIS (14) HTN (hypertension) Code(s): I10 - ESSENTIAL (PRIMARY) HYPERTENSION (15) Osteomyelitis Code(s): M86.9 - OSTEOMYELITIS, UNSPECIFIED Visit type - Emergency Visit Emergency Visit: Yes ED Registration Date: 08/19/16 Care time: The patient presented to the Emergency Department on the above date and was hospitalized for further evaluation of their emergent condition. - New Patient This patient is new to me today: No - Critical Care Critical Care patient: No
--- NOTE | 2016-08-27 15:11 | PN ---
Addendum entered and electronically signed by Sis Barrett RES 08/27/16 16 :04: started on metoprolol tartrate 25mg bid; BP running 150-160s systol; mildly elevated HR; Original Note: Physical Exam: SUBJECTIVE: Patient seen and examined, no events overnight, afebrile, blood pressured elevated this am. Denies headache, blurr vision, chest pain, sob. leg pain controlled. I&D tonight OBJECTIVE: Vital Signs Period Temp Pulse Resp BP Sys/Gutierrez Pulse Ox Last 24 Hr 97.7 F-98.2 F 82-86 20-20 149-161/94-94 90-91 GENERAL: The patient is awake, alert, and fully oriented, in no acute distress. HEAD: Normal with no signs of trauma. EYES: PERRL, extraocular movements intact, sclera anicteric, conjunctiva clear. No ptosis. LUNGS: Breath sounds equal, clear to auscultation bilaterally, no wheezes, mild right LL crackles, no accessory muscle use. HEART: Regular rate and rhythm, S1, S2 without murmur, rub or gallop. ABDOMEN: Soft, nontender, nondistended, normoactive bowel sounds, no guarding, no rebound, no hepatosplenomegaly, no masses. EXTREMITIES: 2+ pulses, warm, well-perfused, Left LE 1+ pitting edema;LLE dressing with clear yellow fluid NEUROLOGICAL: Cranial nerves II through XII grossly intact. Normal speech, gait not observed. PSYCH: Normal mood, normal affect. SKIN: Warm, dry, normal turgor, no rashes or lesions noted Laboratory Results - last 24 hr 08/23/16 08/26/16 08/26/16 08:10 16:26 21:01 WBC RBC Hgb Hct MCV MCHC RDW Plt Count MPV Neutrophils % Lymphocytes % Monocytes % Eosinophils % Basophils % Sodium Potassium Chloride Carbon Dioxide Anion Gap BUN Creatinine POC Glucometer 173 275 Random Glucose Calcium Phosphorus Random Vancomycin Blood Type B POSITIVE Antibody Screen Negative Crossmatch See Detail 08/27/16 08/27/16 08/27/16 05:41 05:41 05:41 WBC 13.3 H RBC 3.15 L Hgb 7.6 L D Hct 23.9 L MCV 75.9 L MCHC 31.8 L RDW 27.0 H Plt Count 466 H MPV 6.8 L Neutrophils % 77.8 Lymphocytes % 12.0 Monocytes % 6.9 Eosinophils % 2.5 Basophils % 0.8 Sodium 142 Potassium 5.7 H Chloride 113 H Carbon Dioxide 22 Anion Gap 7 L BUN 55 H Creatinine 2.3 H POC Glucometer Random Glucose 140 H D Calcium 8.1 L Phosphorus 6.3 H Random Vancomycin 16.666 Blood Type Antibody Screen Crossmatch 08/27/16 08/27/16 05:45 11:53 WBC RBC Hgb Hct MCV MCHC RDW Plt Count MPV Neutrophils % Lymphocytes % Monocytes % Eosinophils % Basophils % Sodium Potassium Chloride Carbon Dioxide Anion Gap BUN Creatinine POC Glucometer 159 63 Random Glucose Calcium Phosphorus Random Vancomycin Blood Type Antibody Screen Crossmatch Active Medications Generic Name Dose Route Start Last Admin Trade Name Freq PRN Reason Stop Dose Admin Albuterol Sulfate 2 puff 08/22/16 19:12 Ventolin Hfa Inhaler - IH Q4H PRN WHEEZING Amlodipine Besylate 10 mg 08/23/16 10:00 08/27/16 10:01 Norvasc - PO 10 mg DAILY [facility] Administration Ascorbic Acid 500 mg 08/23/16 10:00 08/27/16 10:01 Vitamin C - PO 500 mg DAILY [facility] Administration Calcium Acetate 1,334 mg 08/27/16 12:00 08/27/16 13:51 Phoslo - PO Not Given TIDCM [facility] Doxazosin Mesylate 4 mg 08/23/16 10:00 08/27/16 11:21 Cardura - PO 4 mg DAILY [facility] Administration Duloxetine HCl 30 mg 08/23/16 10:00 08/27/16 10:01 Cymbalta - PO 30 mg DAILY [facility] Administration Fentanyl 1 patch 08/23/16 12:30 08/26/16 12:48 Duragesic 25mcg Patch - TD 08/30/16 12:21 1 patch Q72H [facility] Administration Ferrous Sulfate 325 mg 08/23/16 10:00 08/27/16 10:01 Feosol - PO 325 mg DAILY [facility] Administration Folic Acid 1 mg 08/23/16 10:00 08/27/16 10:01 Folic Acid - PO 1 mg DAILY [facility] Administration Furosemide 40 mg 08/28/16 10:00 Lasix - PO DAILY [facility] Ampicillin Sodium/Sulbactam 100 mls @ 200 mls/hr 08/24/16 18:00 08/27/16 10:01 Sodium 3 gm/ Sodium Chloride IVPB 200 mls/hr Q8H-IV [facility] Administration Insulin Aspart 1 vial 08/26/16 16:30 08/27/16 11:21 Novolog Vial Sliding Scale - SQ Not Given TIDAC [facility] Protocol Insulin Detemir 20 units 08/26/16 12:14 08/27/16 06:00 Levemir Vial SQ Not Given BID@0700,2200 [facility] Methyl Salicylate 1 applic 08/25/16 22:00 08/27/16 10:25 Sterling-Greer - TP 1 applic BID [facility] Administration Mirtazapine 30 mg 08/22/16 22:00 08/26/16 22:11 Remeron - PO 30 mg HS [facility] Administration Miscellaneous 1 each 08/23/16 12:20 08/26/16 12:56 Duragesic Patch Waste TD 1 each PRN PRN Administration PAIN Oxycodone HCl 10 mg 08/26/16 12:11 08/27/16 10:18 Roxicodone - PO 10 mg Q6H PRN Administration PAIN Pantoprazole Sodium 20 mg 08/23/16 10:00 08/27/16 10:01 Protonix - PO 20 mg DAILY [facility] Administration Pregabalin 100 mg 08/22/16 22:00 08/27/16 10:01 Lyrica - PO 100 mg BID [facility] Administration Sodium Bicarbonate 650 mg 08/23/16 10:00 08/27/16 10:01 Sodium Bicarbonate - PO 650 mg DAILY [facility] Administration Trazodone HCl 300 mg 08/22/16 22:00 08/26/16 22:11 Desyrel - PO 300 mg HS [facility] Administration Zinc Sulfate 220 mg 08/23/16 10:00 08/27/16 10:01 Orazinc - PO 220 mg DAILY [facility] Administration Head, Facial Bones, Cervical Spine CT: no intracranial/extracranial bleeding, no edema, no mass, no evidence of ischemia, + R supraorbital soft tissue swelling with laceration, no facial or spinal Fx MRI C-spine: prevertebral, retropharyngeal fluid collection/edema, likely non- infectious in etiology CXR: no acute pathology Echo: mild LVH ; LV mildy dilated ; preserved LVSF; no regional wall motin abnormalities; Mild to mod MR; Mod TR: RVSP 30-40mmhg; mild pulmonary hypertention; left and right atria mod dilated; mild aortic root dilation; small pericardial effusion <1cm MRI: left Foot + osteomyelitis of left foot, distal tibia, lateral and medial malleolus ASSESSMENT/PLAN: Pt is a 60 yo M with PMHx of DM, HTN, diabetic neuropathy with left foot amputation, and CKD who presents to the ED s/p syncopal episode from standing position with +LOC and +head trauma. Pt was found to have a Hgb of 3.7 and WBC of 26.1 upon presentation. #Syncope most likely related to anemia: -most likely anemia of chronic disease (CKD) with anemia from acute infection from osteomyelitits -heme >8 x 2 days -multiple transfusion PRBC; keep hemoglobin >7 -FOBT negative -Pt reports Hx of colonoscopy in December of 2015 with subsequent Bx of colonic polyps negative. Pt reports nml EGD done around the same time. Both performed by Dr. Etienne; no need for another colonoscopy at this time -low serum iron; low TIBC, low iron saturation, high ferritin in setting of acute infection -hematology workup #sepsis secondary to osteomyelitis: getting I&D tonight -wbc 13.3 -vitals stable -cont vanco, follow trough; cont Unasyn; -blood culture +beta hemolytic strep Group G -wound culture same -MRI +osteomyelitis; - Dr. Galvan consulted/old sensitivities noted from previous infection #photophobia: improved -orbital CT negative -optho consult #Hyperkalemia; 5.4; -Medically treated with Ca gluconate, Insulin/D50, and kaexylate on 08/27 -Continue to trend -maintain low K diet #hyperphosphatemia: -phoslo with meals tid>5.5 #Acute on chronic renal failure: -cr 2.3 today from 2.2 yest -Renal US showing bilateral echogenic kidneys: this relates to chronic kidney disease -Renal consult #Retropharyngeal/prevertebral edema on MRI -MRI does not correlate to active infection -ENT consulted, does not feel this is an abscess; no intervention from him at this time # L LE swelling -Duplex US negative for DVT # Diabetes -levemir increased to 22 U bid -insulin ss -BGM FEN: Fluids: po Electrolytes:trend Diet: diabetic; low K DVT ppx: scds Disposition: I&D today Visit type - Emergency Visit Emergency Visit: Yes ED Registration Date: 08/19/16 Care time: The patient presented to the Emergency Department on the above date and was hospitalized for further evaluation of their emergent condition. - New Patient This patient is new to me today: No - Critical Care Critical Care patient: No
--- NOTE | 2016-08-27 16:23 | PN ---
Teaching Attending Note Name of Resident: Shahnaz Almonte ATTENDING PHYSICIAN STATEMENT I saw and evaluated the patient. I reviewed the resident's note and discussed the case with the resident. I agree with the resident's findings and plan as documented. SUBJECTIVE: OBJECTIVE: ASSESSMENT AND PLAN: For debridement of foot today Continue unasyn repeat vancomycin trough am
[2016-08-27] MEDS ORDERED: MIDAZOLAM HCL 2 MG/2 ML SINGLE DOSE VIAL ONE (17:19)
[2016-08-27] MEDS ORDERED: PROPOFOL 20 ML ONE (17:22)
[2016-08-27] MEDS ORDERED: LIDOCAINE HCL/PF 2% SDV 5ML VIAL ONE (17:22)
--- NOTE | 2016-08-27 18:29 | PN ---
Teaching Attending Note Name of Resident: Sis Barrett ATTENDING PHYSICIAN STATEMENT I saw and evaluated the patient. I reviewed the resident's note and discussed the case with the resident. I agree with the resident's findings and plan as documented. SUBJECTIVE: OBJECTIVE: Vital Signs Period Temp Pulse Resp BP Sys/Gutierrez Pulse Ox Last 24 Hr 97.7 F-98.3 F 82-92 20-20 144-161/84-94 90-91 ASSESSMENT AND PLAN:
[2016-08-27] MEDS ORDERED: FENTANYL PATCH WASTE TD PRN (18:31)
[2016-08-27] MEDS ORDERED: FENTANYL PATCH WASTE MC PRN (18:31)
[2016-08-27] MEDS ORDERED: ALBUTEROL SO4 6.7 GM HFA INHALER IH PRN (18:31)
[2016-08-27] MEDS ORDERED: AMPICILLIN NA/SULBACTAM NA 1.5 GM VIAL ONE (18:51)
--- NOTE | 2016-08-27 21:24 | OP ---
Operative Note - Note: Operative Date: 08/27/16 Pre-Operative Diagnosis: Osteomyelitis, DFU (diabetic foot ulcer) Operation: Bone biopsy of the left foot- 3 separate sites Findings: Marked necrotic bone at focus of previously incised abscess mid to rear foot medially. Post-Operative Diagnosis: Same as Pre-op Surgeon: Aroldo Galvan Anesthesia: General Specimens Removed: bone and necrotic tissue Estimated Blood Loss (mls): 20 Drains & Tubes with Location: none Operative Report Dictated: Yes
[2016-08-27] MEDS ORDERED: traZODone HCL 50 MG TABLET (FP) ONE (21:46)
[2016-08-27] MEDS: METOPROLOL TARTRATE 25 MG TABLET (FP) PO SCH (21:57)
[2016-08-27] MEDS: traZODone HCL 100 MG TABLET (FP) PO SCH (21:57)
[2016-08-27] MEDS: MIRTAZAPINE 15 MG TABLET (FP) PO SCH (21:57)
[2016-08-27] MEDS ORDERED: METOPROLOL TARTRATE 25 MG TABLET (FP) PO SCH (22:00)
[2016-08-28] MEDS: AMPICILLIN NA/SULBACTAM NA 3 GM in SODIUM CHLORIDE 100 ML IVPB SCH ×3 (02:02→17:12)
[2016-08-28] MEDS: oxyCODONE HCL 5 MG TABLET PO PRN ×2 (05:05→22:38)
[2016-08-28] MEDS ORDERED: INSULIN (NOVOLOG) ASPART 100 UNITS/ML 10ML VIAL ONE (06:19)
[2016-08-28] MEDS: INSULIN DETEMIR 100 UNITS/ML MDV SQ SCH ×2 (06:24→22:31)
[2016-08-28] MEDS: INSULIN SLIDING SCALE (NOVOLOG) 1 VIAL SQ SCH ×3 (06:24→17:12)
[2016-08-28 07:35] LABS: BASOPHIL 0.6 % (0-2.0); EOSINOPHIL 1.9 % (0-4.5); MCHC 31.2 g/dl (32.0-35.9); MEAN CELL VOLUME 77.1 fl (80-96); MEAN PLT VOLUME 7.1 fl (7.5-11.1); NEUTROPHILS 85.5 % (42.8-82.8); PLATELET COUNT 416 K/MM3 (134-434); RDW 27.4 % (11.9-15.9); WHITE BLOOD COUNT 14.1 K/mm3 (4.0-10.0)
[2016-08-28 08:01] LABS: COCKROFT - GAULT 47.11; CREATININE 2.3 mg/dL (0.7-1.3); PHOSPHOROUS 5.9 mg/dL (2.5-4.9)
--- NOTE | 2016-08-28 08:20 | PN ---
Progress Note (short form) - Note Progress Note: ANESTHESIA POST-OP CHECK 60M s/p left foot bone biopsies under general anesthesia, POD #1. No acute complaints, pain 8/10 and tolerable. Tolerating PO, denies N/V. Vital Signs Temperature 98.4 F 08/28/16 06:00 Pulse Rate 78 08/28/16 06:00 Respiratory Rate 20 08/28/16 06:00 Blood Pressure 154/88 08/28/16 06:00 O2 Sat by Pulse Oximetry (%) 96 08/27/16 21:00 Active Medications Albuterol Sulfate (Ventolin Hfa Inhaler -) 2 puff IH Q4H PRN PRN Reason: WHEEZING Amlodipine Besylate (Norvasc -) 10 mg PO DAILY [facility] Ascorbic Acid (Vitamin C -) 500 mg PO DAILY [facility] Calcium Acetate (Phoslo -) 1,334 mg PO TIDCM [facility] Doxazosin Mesylate (Cardura -) 4 mg PO DAILY [facility] Duloxetine HCl (Cymbalta -) 30 mg PO DAILY [facility] Fentanyl (Duragesic 25mcg Patch -) 1 patch TD Q72H [facility] Stop: 08/30/16 12:21 Ferrous Sulfate (Feosol -) 325 mg PO DAILY [facility] Folic Acid (Folic Acid -) 1 mg PO DAILY [facility] Furosemide (Lasix -) 40 mg PO DAILY [facility] Ampicillin Sodium/Sulbactam (Sodium 3 gm/ Sodium Chloride) 100 mls @ 200 mls/ hr IVPB Q8H-IV [facility] Last Admin: 08/28/16 02:02 Dose: 200 mls/hr Insulin Aspart (Novolog Vial Sliding Scale -) 1 vial SQ TIDAC [facility] PRN Reason: Protocol Last Admin: 08/28/16 06:24 Dose: 4 units Insulin Detemir (Levemir Vial) 20 units SQ BID@0700,2200 [facility] Last Admin: 08/28/16 06:24 Dose: 20 units Methyl Salicylate (Sterling-Greer -) 1 applic TP BID [facility] Last Admin: 08/27/16 22:00 Dose: 1 applic Metoprolol Tartrate (Lopressor -) 25 mg PO BID [facility] Last Admin: 08/27/16 21:57 Dose: 25 mg Mirtazapine (Remeron -) 30 mg PO HS [facility] Last Admin: 08/27/16 21:57 Dose: 30 mg Miscellaneous (Duragesic Patch Waste) 1 each TD PRN PRN PRN Reason: PAIN Miscellaneous (Duragesic Patch Waste) 1 each MC PRN PRN PRN Reason: PAIN Oxycodone HCl (Roxicodone -) 10 mg PO Q6H PRN PRN Reason: PAIN Last Admin: 08/28/16 05:05 Dose: 10 mg Pantoprazole Sodium (Protonix -) 20 mg PO DAILY [facility] Pregabalin (Lyrica -) 100 mg PO BID [facility] Last Admin: 08/27/16 21:57 Dose: 100 mg Sodium Bicarbonate (Sodium Bicarbonate -) 650 mg PO DAILY [facility] Trazodone HCl (Desyrel -) 300 mg PO HS [facility] Last Admin: 08/27/16 21:57 Dose: 300 mg Zinc Sulfate (Orazinc -) 220 mg PO DAILY [facility] Gen; Awake, alert No apparent anesthesia complications, pain controlled. Continue management as per primary team.
[2016-08-28] MEDS ORDERED: PT OWN MED DRAWER 7, Y5N ONE ×3 (08:38→22:27)
[2016-08-28] MEDS: CALCIUM ACETATE 667 MG CAPSULE (FP) PO SCH ×3 (08:52→17:12)
[2016-08-28] MEDS: PREGABALIN 50 MG CAPSULE PO SCH ×2 (08:59→22:31)
[2016-08-28] MEDS: DOXAZOSIN MESYLATE 4 MG TABLET PO SCH (08:59)
[2016-08-28] MEDS: PANTOPRAZOLE 20 MG TABLET (FP) PO SCH (08:59)
[2016-08-28] MEDS: amLODIPine BESYLATE 10 MG TABLET (FP) PO SCH (09:00)
[2016-08-28] MEDS: FOLIC ACID 1 MG TABLET (FP) PO SCH (09:00)
[2016-08-28] MEDS: SODIUM BICARBONATE 650 MG TABLET PO SCH (09:00)
[2016-08-28] MEDS: DULoxetine HCL 30 MG CAPSULE.DR (FP) PO SCH (09:00)
[2016-08-28] MEDS: METHYL SALICYLATE/MENTHOL OINT 30 GM TUBE TP SCH ×2 (09:00→22:41)
[2016-08-28] MEDS: ZINC SULFATE 220 MG CAPSULE (FP) PO SCH (09:00)
[2016-08-28] MEDS: ASCORBIC ACID 500 MG TABLET (FP) PO SCH (09:00)
[2016-08-28] MEDS: FERROUS SO4 325 MG TABLET (FP) PO SCH (09:00)
[2016-08-28] MEDS: FUROSEMIDE 40 MG TABLET (FP) PO SCH (09:00)
[2016-08-28] MEDS: METOPROLOL TARTRATE 25 MG TABLET (FP) PO SCH ×2 (09:01→22:32)
[2016-08-28] MEDS ORDERED: FUROSEMIDE 40 MG TABLET (FP) PO SCH (10:00)
--- NOTE | 2016-08-28 10:08 | OP ---
DATE OF OPERATION: DATE OF DICTATION: 08/27/2016 PROCEDURE: Biopsy of 3 separate sites of the left foot. PREOPERATIVE DIAGNOSIS: Presumed osteomyelitis. POSTOPERATIVE DIAGNOSIS: Presumed osteomyelitis. ANESTHESIA: General. SURGEON: Dr. Niurka Galvan CLINICAL INDICATIONS FOR THIS PROCEDURE: This patient, well known to this examiner, who has been treated for a flap failure and diabetic foot ulceration and had a previously diagnosed osteomyelitis in February of last year, was treated at the [facility]. Patient underwent a biopsy after a positive MRI at the [facility]. Patient was given oral antibiotics and was requested numerous times to obtain and infectious disease consult in order to ascertain if adequate antimicrobial chemotherapy was performed. Patient after numerous requests failed to do so and then presented at this institution with sepsis. Decided not to discontinue antimicrobial chemotherpy prior to this procedure due to sepsis- because of the apparent profound osteomyelitis it is believed that coloring of the results will not occur. NARRATIVE: After prepping the patient in the usual manner, a well-padded mid- calf tourniquet was inflated to 300 mmHg on the left limb. Attention was directed to the ulceration where patient had the incision and drainage. Dissection was carried out through the fibrotic tissue to the mid-to-rear foot. Because of significant osseous destruction secondary to the osteomyelitic process, the anatomy was poorly defined. A sample of bone was taken from the mid-to-rear foot, presumably the remnants of the navicular and/or talus. Samples were sent for microbiology and for pathology. Attention then was directed to the calcaneus where the MRI indicated that this was also infected. On the medial aspect of the calcaneus near to the incised abscess, but through intact skin, a stab incision was made. Using a Jamshidi needle, a sample of bone was taken to be given to Microbiology. Likewise, at the area of the remnants of the 1st metatarsal distally, a stab incision was made there, and a Jamshidi needle was introduced in order to get samples of bone. It is hoped that adequate cultures can be obtained to ascertain limb salvage by appropriate antimicrobial chemotherapy and by further debridements with application of antibiotic-infused calcium substrate. DR NIURKA GALVAN RT/[id number] [facility]
--- NOTE | 2016-08-28 12:07 | PN ---
Teaching Attending Note Name of Resident: Sis Barrett ATTENDING PHYSICIAN STATEMENT I saw and evaluated the patient. I reviewed the resident's note and discussed the case with the resident. I agree with the resident's findings and plan as documented. SUBJECTIVE:c/o overall weakness and lethargy. denies CP, SOB,fever, chills, hematuria, melena or BRBPR. states he had normal BM this morning. OBJECTIVE: Last Vital Signs Temp Pulse Resp BP Pulse Ox 98.8 F 83 20 130/89 88 L 08/28/16 10:08/28/16 10:08/28/16 10:00 08/28/16 10:08/28/16 09:00 General NAD CV S1 S2 RRR no murmur/rub/gallop Lungs CTA B/L anteriorly Abdomen soft NT/ND Extremities trace pitting edema B/L LE. L foot wrapped in gauze with some seeping of serosangeous fluid seen on gauze ASSESSMENT AND PLAN: 60yo M with PMH HTH, DM, Peripheral neuropathy, OM of L foot s/p amputation presented to the ER and was admitted for further evaluation of their emergent condition 1. Symptomatic anemia- anemia of chronic disease due to sepsis. s/p 7 units PRBC this admission. transfuse 1 unit PRBC today. no signs of active bleeding. GI workup done several months ago and negative per pt. obtain copies from GI. hematology on board. protein studies pending. will likely require EPO 2. Sepsis due to L foot OM- s/p bone bx by podiatry yesterday. will need halfway abx therapy. on Unasyn/Vanco per wound Cx results. f/u bone bx. pain control 3. Hyperkalemia- likely in setting of FROYLAN. persistent. no indication for HD at this time. nephrology on board 4. Acute on CKD- Cr stable. on bicarb. nephrology on board. 5. hyperphosphatemia- likely due to kidney failure. improved. on phoslo. 6. diabetes- A1c 7.6. controlled. cont levemir BID and iss. diabetic/renal diet 7. HTN- improved. started on metoprolol 8. DVT ppx- SCD
--- NOTE | 2016-08-28 12:19 | PN ---
Physical Exam: SUBJECTIVE: Patient seen and examined , no new complaints, drop in hemoglobin this am; transfuse 1U PRBC, s/p left TMA debridement yesterday. OBJECTIVE: Vital Signs Period Temp Pulse Resp BP Sys/Gutierrez Pulse Ox Last 24 Hr 97.4 F-98.8 F 74-92 14-20 130-157/78-97 88-97 GENERAL: The patient is awake, alert, and fully oriented, in no acute distress. HEAD: Normal with no signs of trauma. EYES: PERRL, extraocular movements intact, sclera anicteric, conjunctiva clear. No ptosis. LUNGS: rhonchi improved; mils crakle b/l bases HEART: Regular rate and rhythm, S1, S2 without murmur, rub or gallop. ABDOMEN: Soft, nontender, nondistended, normoactive bowel sounds, no guarding, no rebound, no hepatosplenomegaly, no masses. EXTREMITIES: 2+ pulses, warm, well-perfused, no edema. LLE; dressing in place , no drain, NEUROLOGICAL: Cranial nerves II through XII grossly intact. Normal speech, gait not observed. still with left sided UE and LE weakness PSYCH: Normal mood, normal affect. SKIN: Warm, dry, normal turgor, no rashes or lesions noted Laboratory Results - last 24 hr 08/23/16 08/27/16 08/27/16 08:10 11:53 16:22 WBC RBC Hgb Hct MCV MCHC RDW Plt Count MPV Neutrophils % Lymphocytes % Monocytes % Eosinophils % Basophils % Sodium Potassium Chloride Carbon Dioxide Anion Gap BUN Creatinine POC Glucometer 63 51 Random Glucose Calcium Phosphorus Magnesium Blood Type B POSITIVE Antibody Screen Negative Crossmatch See Detail 08/27/16 08/27/16 08/28/16 16:47 21:19 04:56 WBC RBC Hgb Hct MCV MCHC RDW Plt Count MPV Neutrophils % Lymphocytes % Monocytes % Eosinophils % Basophils % Sodium Potassium Chloride Carbon Dioxide Anion Gap BUN Creatinine POC Glucometer 121 140 243 Random Glucose Calcium Phosphorus Magnesium Blood Type Antibody Screen Crossmatch 08/28/16 08/28/16 08/28/16 05:35 05:35 09:15 WBC 14.1 H RBC 2.83 L Hgb 6.8 L* D Hct 21.8 L MCV 77.1 L MCHC 31.2 L RDW 27.4 H Plt Count 416 MPV 7.1 L Neutrophils % 85.5 H Lymphocytes % 8.2 D Monocytes % 3.8 Eosinophils % 1.9 Basophils % 0.6 Sodium 141 Potassium 5.5 H Chloride 111 H Carbon Dioxide 21 Anion Gap 9 BUN 54 H Creatinine 2.3 H POC Glucometer Random Glucose 177 H D Calcium 8.0 L Phosphorus 5.9 H Magnesium 2.0 Blood Type B POSITIVE Antibody Screen Negative Crossmatch See Detail 08/28/16 11:02 WBC RBC Hgb Hct MCV MCHC RDW Plt Count MPV Neutrophils % Lymphocytes % Monocytes % Eosinophils % Basophils % Sodium Potassium Chloride Carbon Dioxide Anion Gap BUN Creatinine POC Glucometer 174 Random Glucose Calcium Phosphorus Magnesium Blood Type Antibody Screen Crossmatch Active Medications Generic Name Dose Route Start Last Admin Trade Name Freq PRN Reason Stop Dose Admin Albuterol Sulfate 2 puff 08/27/16 18:31 Ventolin Hfa Inhaler - IH Q4H PRN WHEEZING Amlodipine Besylate 10 mg 08/28/16 10:00 08/28/16 09:00 Norvasc - PO 10 mg DAILY [facility] Administration Ascorbic Acid 500 mg 08/28/16 10:00 08/28/16 09:00 Vitamin C - PO 500 mg DAILY [facility] Administration Calcium Acetate 1,334 mg 08/28/16 08:00 08/28/16 08:52 Phoslo - PO 1,334 mg TIDCM [facility] Administration Doxazosin Mesylate 4 mg 08/28/16 10:00 08/28/16 08:59 Cardura - PO 4 mg DAILY [facility] Administration Duloxetine HCl 30 mg 08/28/16 10:00 08/28/16 09:00 Cymbalta - PO 30 mg DAILY [facility] Administration Fentanyl 1 patch 08/29/16 12:30 Duragesic 25mcg Patch - TD 08/30/16 12:21 Q72H [facility] Ferrous Sulfate 325 mg 08/28/16 10:00 08/28/16 09:00 Feosol - PO 325 mg DAILY [facility] Administration Folic Acid 1 mg 08/28/16 10:00 08/28/16 09:00 Folic Acid - PO 1 mg DAILY [facility] Administration Furosemide 40 mg 08/28/16 10:00 08/28/16 09:00 Lasix - PO 40 mg DAILY [facility] Administration Ampicillin Sodium/Sulbactam 100 mls @ 200 mls/hr 08/28/16 02:00 08/28/16 09:01 Sodium 3 gm/ Sodium Chloride IVPB 200 mls/hr Q8H-IV [facility] Administration Insulin Aspart 1 vial 08/28/16 07:00 08/28/16 06:24 Novolog Vial Sliding Scale - SQ 4 units TIDAC [facility] Administration Protocol Insulin Detemir 20 units 08/27/16 22:00 08/28/16 06:24 Levemir Vial SQ 20 units BID@0700,2200 [facility] Administration Methyl Salicylate 1 applic 08/27/16 22:00 08/28/16 09:00 Sterling-Greer - TP Not Given BID [facility] Metoprolol Tartrate 25 mg 08/27/16 22:00 08/28/16 09:01 Lopressor - PO 25 mg BID [facility] Administration Mirtazapine 30 mg 08/27/16 22:00 08/27/16 21:57 Remeron - PO 30 mg HS [facility] Administration Miscellaneous 1 each 08/27/16 18:31 Duragesic Patch Waste TD PRN PRN PAIN Miscellaneous 1 each 08/27/16 18:31 Duragesic Patch Waste MC PRN PRN PAIN Oxycodone HCl 10 mg 08/27/16 18:31 08/28/16 05:05 Roxicodone - PO 10 mg Q6H PRN Administration PAIN Pantoprazole Sodium 20 mg 08/28/16 10:00 08/28/16 08:59 Protonix - PO 20 mg DAILY [facility] Administration Pregabalin 100 mg 08/27/16 22:00 08/28/16 08:59 Lyrica - PO 100 mg BID [facility] Administration Sodium Bicarbonate 650 mg 08/28/16 10:00 08/28/16 09:00 Sodium Bicarbonate - PO 650 mg DAILY [facility] Administration Trazodone HCl 300 mg 08/27/16 22:00 08/27/16 21:57 Desyrel - PO 300 mg HS [facility] Administration Zinc Sulfate 220 mg 08/28/16 10:00 08/28/16 09:00 Orazinc - PO 220 mg DAILY [facility] Administration ASSESSMENT/PLAN: Head, Facial Bones, Cervical Spine CT: no intracranial/extracranial bleeding, no edema, no mass, no evidence of ischemia, + R supraorbital soft tissue swelling with laceration, no facial or spinal Fx MRI C-spine: prevertebral, retropharyngeal fluid collection/edema, likely non- infectious in etiology CXR: no acute pathology Echo: mild LVH ; LV mildy dilated ; preserved LVSF; no regional wall motin abnormalities; Mild to mod MR; Mod TR: RVSP 30-40mmhg; mild pulmonary hypertention; left and right atria mod dilated; mild aortic root dilation; small pericardial effusion <1cm MRI: left Foot + osteomyelitis of left foot, distal tibia, lateral and medial malleolus ASSESSMENT/PLAN: Pt is a 60 yo M with PMHx of DM, HTN, diabetic neuropathy with left foot amputation, and CKD who presents to the ED s/p syncopal episode from standing position with +LOC and +head trauma. Pt was found to have a Hgb of 3.7 and WBC of 26.1 upon presentation. #Syncopal episode sec to Acute on chronic anemia secondary to acute infection from osteomyelitits -total 7U PRBC transfused; another today due to heme 6.8 -keep hemoglobin >7 -Hx of colonoscopy in December of 2015 with subsequent Bx of colonic polyps negative. Pt reports nml EGD done around the same time. Both performed by Dr. Etienne; no need for another colonoscopy at this time -low serum iron; low TIBC, low iron saturation, high ferritin in setting of acute infection -hemo/onc consulted #sepsis secondary to osteomyelitis: s/p debridement 08/27 -wbc up trend 14 from 13; possible stress from sx/pain -cont vanco, follow trough; cont Unasyn; -blood culture +beta hemolytic strep Group G -wound culture same -MRI +osteomyelitis; - / old sensitivities noted from previous infection #hypertension: -metoprolol 25mg bid -norsvac 10mg -diovan held due to FROYLAN #photophobia: improved -orbital CT negative -optho consult #Hyperkalemia; improved; -Medically treated with Ca gluconate, Insulin/D50, and kaexylate on 08/27 -Continue to trend -maintain low K diet #hyperphosphatemia:improved -phoslo with meals tid #Acute on chronic renal failure:stble -cr 2.3 today from 2.2 yest -Renal US showing bilateral echogenic kidneys: this relates to chronic kidney disease -Renal consulted #Retropharyngeal/prevertebral edema on MRI -MRI does not correlate to active infection -ENT consulted, does not feel this is an abscess; no intervention from him at this time # L LE swelling -Duplex US negative for DVT # Diabetes -levemir increased to 22 U bid -insulin ss -BGM FEN: Fluids: po Electrolytes:trend Diet: diabetic; low K DVT ppx: scds Disposition: debridement yesterday; gram stain cultures pending; cont IV antibiotics Visit type - Emergency Visit Emergency Visit: Yes ED Registration Date: 08/19/16 Care time: The patient presented to the Emergency Department on the above date and was hospitalized for further evaluation of their emergent condition. - New Patient This patient is new to me today: No - Critical Care Critical Care patient: No
--- NOTE | 2016-08-28 13:42 | PN ---
Progress Note (short form) - Note Progress Note: Renal Follow up for FROYLAN/CKD with Hyperkalemia Pt seen and examined at the bedside no acute complaints s/p debridement of left TMA yesterday no sob or chest pain Vital Signs Temperature 98.8 F 08/28/16 10:00 Pulse Rate 83 08/28/16 10:00 Respiratory Rate 20 08/28/16 10:00 Blood Pressure 130/89 08/28/16 10:00 O2 Sat by Pulse Oximetry (%) 88 L 08/28/16 09:00 Intake & Output 08/25/16 08/26/16 08/27/16 08/28/16 23:59 23:59 23:59 23:59 Intake Total 1460 480 600 440 Output Total 2700 1700 2200 1100 Balance -1240 -1220 -1600 -660 Weight 215 lb Gen: NAD, awake and alert, drowsy HEENT: No JVD CVS: RRR, No M/R Lungs: Dec BS at lung bases, no rales Abd: NT/ND Ext: 1+ edema in LE, Left TMA CBC, BMP 08/28/16 05:35 08/28/16 05:35 Current Medications Albuterol Sulfate (Ventolin Hfa Inhaler -) 2 puff IH Q4H PRN PRN Reason: WHEEZING Amlodipine Besylate (Norvasc -) 10 mg PO DAILY [facility] Last Admin: 08/28/16 09:00 Dose: 10 mg Ascorbic Acid (Vitamin C -) 500 mg PO DAILY [facility] Last Admin: 08/28/16 09:00 Dose: 500 mg Calcium Acetate (Phoslo -) 1,334 mg PO TIDCM [facility] Last Admin: 08/28/16 12:46 Dose: 1,334 mg Doxazosin Mesylate (Cardura -) 4 mg PO DAILY [facility] Last Admin: 08/28/16 08:59 Dose: 4 mg Duloxetine HCl (Cymbalta -) 30 mg PO DAILY [facility] Last Admin: 08/28/16 09:00 Dose: 30 mg Fentanyl (Duragesic 25mcg Patch -) 1 patch TD Q72H [facility] Stop: 08/30/16 12:21 Ferrous Sulfate (Feosol -) 325 mg PO DAILY [facility] Last Admin: 08/28/16 09:00 Dose: 325 mg Folic Acid (Folic Acid -) 1 mg PO DAILY [facility] Last Admin: 08/28/16 09:00 Dose: 1 mg Furosemide (Lasix -) 40 mg PO DAILY [facility] Last Admin: 08/28/16 09:00 Dose: 40 mg Ampicillin Sodium/Sulbactam (Sodium 3 gm/ Sodium Chloride) 100 mls @ 200 mls/ hr IVPB Q8H-IV [facility] Last Admin: 08/28/16 09:01 Dose: 200 mls/hr Insulin Aspart (Novolog Vial Sliding Scale -) 1 vial SQ TIDAC [facility] PRN Reason: Protocol Last Admin: 08/28/16 12:47 Dose: 2 units Insulin Detemir (Levemir Vial) 20 units SQ BID@0700,2200 [facility] Last Admin: 08/28/16 06:24 Dose: 20 units Methyl Salicylate (Sterling-Greer -) 1 applic TP BID [facility] Last Admin: 08/28/16 09:00 Dose: Not Given Metoprolol Tartrate (Lopressor -) 25 mg PO BID [facility] Last Admin: 08/28/16 09:01 Dose: 25 mg Mirtazapine (Remeron -) 30 mg PO [facility] Last Admin: 08/27/16 21:57 Dose: 30 mg Miscellaneous (Duragesic Patch Waste) 1 each TD PRN PRN PRN Reason: PAIN Miscellaneous (Duragesic Patch Waste) 1 each MC PRN PRN PRN Reason: PAIN Oxycodone HCl (Roxicodone -) 10 mg PO Q6H PRN PRN Reason: PAIN Last Admin: 08/28/16 05:05 Dose: 10 mg Pantoprazole Sodium (Protonix -) 20 mg PO DAILY [facility] Last Admin: 08/28/16 08:59 Dose: 20 mg Pregabalin (Lyrica -) 100 mg PO BID [facility] Last Admin: 08/28/16 08:59 Dose: 100 mg Sodium Bicarbonate (Sodium Bicarbonate -) 650 mg PO DAILY [facility] Last Admin: 08/28/16 09:00 Dose: 650 mg Trazodone HCl (Desyrel -) 300 mg PO [facility] Last Admin: 08/27/16 21:57 Dose: 300 mg Zinc Sulfate (Orazinc -) 220 mg PO DAILY [facility] Last Admin: 08/28/16 09:00 Dose: 220 mg A/P 60 year old Gentleman with PMhx of CKD (baseline unclear), Hypertension, IDDM, PVD who presented s/p syncopal episode and found to have acute Anemia with Hgb of 3.7 and BUN/Cr of 41/2.7 and K of 6.8. #FROYLAN -> CKD Renal function stable at this time start lasix 40mg daily trend BUN/Cr no indication for ROUGE PRESSER continue sodium bicarb 650mg Daily #Hyperphosphatemia continue phoslo f/u PTH #Acute Anemia Heme Following getting transfusion today start epogen as per Heme may require iron supplementation #Bactermia/Sepsis continue Abx as per ID #Hypertension Continue amlodipine and Cardura Miguel Jansen DO
--- NOTE | 2016-08-28 14:23 | PN ---
Progress Note (short form) - Note Progress Note: awake and alert s/p bone biopsy yesterday Vital Signs Period Temp Pulse Resp BP Sys/Gutierrez Pulse Ox Last 24 Hr 97.4 F-98.8 F 74-86 14-20 130-157/78-97 88-97 cor-rrr lungs clear abd soft,nt ext foot bandaged CBC, BMP 08/28/16 05:35 08/28/16 05:35 Microbiology 08/22/16 05:35 Blood - Peripheral Venous Blood Culture - Final NO GROWTH AFTER 5 DAYS INCUBATION 08/22/16 05:30 Blood - Peripheral Venous Blood Culture - Final NO GROWTH AFTER 5 DAYS INCUBATION 08/19/16 22:20 Blood - Peripheral Venous Blood Culture - Final Staphylococcus Epidermidis#2 Staphylococcus Epidermidis Staphylococcus Epidermidis#3 08/21/16 21:20 Foot - Left Instep Gram Stain - Final 08/21/16 21:20 Foot - Left Instep Wound Culture - Final Beta Hem Streptococcus Group G 08/19/16 22:20 Blood - Peripheral Venous Blood Culture - Final Beta Hem Streptococcus Group G Staphylococcus Epidermidis 08/21/16 03:00 Abscess Gram Stain - Final 08/21/16 03:00 Abscess Wound Culture - Final Beta Hem Streptococcus Group G 08/20/16 07:40 Urine - Urine - Catheterized Urine Culture - Final NO GROWTH OBTAINED a/p foot abscess Osteomyelitis anemia feli/ckd diabetes unasyn and vanco by levels f/u cultures check esr/crp
--- NOTE | 2016-08-28 16:16 | PN ---
Physical Exam: SUBJECTIVE: Patient seen and examined. He is feeling good today. he denies neck pain, diarrhea, nausea, vomiting, fever, chills, leg pain, SOB, chest pain. OBJECTIVE: Vital Signs Period Temp Pulse Resp BP Sys/Gutierrez Pulse Ox Last 24 Hr 97.4 F-98.8 F 74-86 14-20 130-157/85-97 88-97 GENERAL: The patient is awake, alert, and fully oriented, in no acute distress. HEAD: Normal with no signs of trauma. EYES: PERRL, extraocular movements intact, sclera anicteric, conjunctiva clear. No ptosis. ENT: Ears normal, nares patent, oropharynx clear without exudates, moist mucous membranes. NECK: Trachea midline, limited range of motion due to pain, supple. LUNGS: Breath sounds equal, clear to auscultation bilaterally, no wheezes, no crackles, no accessory muscle use. HEART: Regular rate and rhythm, S1, S2 without murmur, rub or gallop. ABDOMEN: Soft, nontender, nondistended, normoactive bowel sounds, no guarding, no rebound, no hepatosplenomegaly, no masses. EXTREMITIES: 1+ pulses, warm, 1+ peripheral edema in LE B/L, RLE: 1 toe amputated, deformities in second and fourth toe, no redness, swelling, edema, LLE: bandage. NEUROLOGICAL:No facial asymmetry. Normal speech, gait not observed. PSYCH: Normal mood, normal affect. SKIN: Warm, dry, normal turgor, no rashes or lesions noted Laboratory Results - last 24 hr 08/26/16 08/27/16 08/27/16 07:05 16:22 16:47 WBC RBC Hgb Hct MCV MCHC RDW Plt Count MPV Neutrophils % Lymphocytes % Monocytes % Eosinophils % Basophils % Sodium Potassium Chloride Carbon Dioxide Anion Gap BUN Creatinine POC Glucometer 51 121 Random Glucose Calcium Phosphorus Magnesium PTH Intact 65 Blood Type Antibody Screen Crossmatch 08/27/16 08/28/16 08/28/16 21:19 04:56 05:35 WBC 14.1 H RBC 2.83 L Hgb 6.8 L* D Hct 21.8 L MCV 77.1 L MCHC 31.2 L RDW 27.4 H Plt Count 416 MPV 7.1 L Neutrophils % 85.5 H Lymphocytes % 8.2 D Monocytes % 3.8 Eosinophils % 1.9 Basophils % 0.6 Sodium Potassium Chloride Carbon Dioxide Anion Gap BUN Creatinine POC Glucometer 140 243 Random Glucose Calcium Phosphorus Magnesium PTH Intact Blood Type Antibody Screen Crossmatch 08/28/16 08/28/16 08/28/16 05:35 09:15 11:02 WBC RBC Hgb Hct MCV MCHC RDW Plt Count MPV Neutrophils % Lymphocytes % Monocytes % Eosinophils % Basophils % Sodium 141 Potassium 5.5 H Chloride 111 H Carbon Dioxide 21 Anion Gap 9 BUN 54 H Creatinine 2.3 H POC Glucometer 174 Random Glucose 177 H D Calcium 8.0 L Phosphorus 5.9 H Magnesium 2.0 PTH Intact Blood Type B POSITIVE Antibody Screen Negative Crossmatch See Detail Active Medications Generic Name Dose Route Start Last Admin Trade Name Freq PRN Reason Stop Dose Admin Albuterol Sulfate 2 puff 08/27/16 18:31 Ventolin Hfa Inhaler - IH Q4H PRN WHEEZING Amlodipine Besylate 10 mg 08/28/16 10:00 08/28/16 09:00 Norvasc - PO 10 mg DAILY IGGY Administration Ascorbic Acid 500 mg 08/28/16 10:00 08/28/16 09:00 Vitamin C - PO 500 mg DAILY IGGY Administration Calcium Acetate 1,334 mg 08/28/16 08:00 08/28/16 12:46 Phoslo - PO 1,334 mg TIDCM IGGY Administration Doxazosin Mesylate 4 mg 08/28/16 10:00 08/28/16 08:59 Cardura - PO 4 mg DAILY IGGY Administration Duloxetine HCl 30 mg 08/28/16 10:00 08/28/16 09:00 Cymbalta - PO 30 mg DAILY IGGY Administration Fentanyl 1 patch 08/29/16 12:30 Duragesic 25mcg Patch - TD 08/30/16 12:21 Q72H IGGY Ferrous Sulfate 325 mg 08/28/16 10:00 08/28/16 09:00 Feosol - PO 325 mg DAILY IGGY Administration Folic Acid 1 mg 08/28/16 10:00 08/28/16 09:00 Folic Acid - PO 1 mg DAILY IGGY Administration Furosemide 40 mg 08/28/16 10:00 08/28/16 09:00 Lasix - PO 40 mg DAILY IGGY Administration Ampicillin Sodium/Sulbactam 100 mls @ 200 mls/hr 08/28/16 02:00 08/28/16 09:01 Sodium 3 gm/ Sodium Chloride IVPB 200 mls/hr Q8H-IV IGGY Administration Insulin Aspart 1 vial 08/28/16 07:00 08/28/16 12:47 Novolog Vial Sliding Scale - SQ 2 units TIDAC IGGY Administration Protocol Insulin Detemir 20 units 08/27/16 22:00 08/28/16 06:24 Levemir Vial SQ 20 units BID@0700,2200 IGGY Administration Methyl Salicylate 1 applic 08/27/16 22:00 08/28/16 09:00 Sterling-Greer - TP Not Given BID IGGY Metoprolol Tartrate 25 mg 08/27/16 22:00 08/28/16 09:01 Lopressor - PO 25 mg BID IGGY Administration Mirtazapine 30 mg 08/27/16 22:00 08/27/16 21:57 Remeron - PO 30 mg HS IGGY Administration Miscellaneous 1 each 08/27/16 18:31 Duragesic Patch Waste TD PRN PRN PAIN Miscellaneous 1 each 08/27/16 18:31 Duragesic Patch Waste MC PRN PRN PAIN Oxycodone HCl 10 mg 08/27/16 18:31 08/28/16 05:05 Roxicodone - PO 10 mg Q6H PRN Administration PAIN Pantoprazole Sodium 20 mg 08/28/16 10:00 08/28/16 08:59 Protonix - PO 20 mg DAILY IGGY Administration Pregabalin 100 mg 08/27/16 22:00 08/28/16 08:59 Lyrica - PO 100 mg BID IGGY Administration Sodium Bicarbonate 650 mg 08/28/16 10:00 08/28/16 09:00 Sodium Bicarbonate - PO 650 mg DAILY IGGY Administration Trazodone HCl 300 mg 08/27/16 22:00 08/27/16 21:57 Desyrel - PO 300 mg HS IGGY Administration Zinc Sulfate 220 mg 08/28/16 10:00 08/28/16 09:00 Orazinc - PO 220 mg DAILY IGGY Administration MRI C-spine: prevertebral, retropharyngeal fluid collection/edema, likely non- infectious in etiology MRI: left Foot + osteomyelitis of left foot, distal tibia, lateral and medial malleolus ASSESSMENT/PLAN: 60 year old male with a significant PMH of HTN, IDDM, PAD with multiple amputations, h/o of osteomyelitis in left foot, diabetic nephropathy presents to ED via EMS after an episode of syncope that occurred at the assisted living facility.The patient reports that he was in elevator when he had LOC. he states that he felt lightheaded before the syncopal episode. He was admitted for syncope/anemia/oseomyelitis. L foot fluid collection; -osteomyelitis: cont Unasyn, day 5, -s/p surgical debridement yesterday with bone biopsy and cultures -MRI done, osteomyeltis of the residual metatarsals, greater and lesser tarsal bones and of the tibia and fibula -blood positive for Staph coag neg, Staph epidermidis, beta hemolytic Strep G, blood cx -abscess culture beta hemolytic Strep group G Watery diarrhea: -diarrhea resolved Prevertebral, retropharyngeal fluid collection, -edema likely of noninfectious etiology -ENT saw the pt , no further treatment recommended Severe Anemia Hypercalcemia Syncope Hyperkalemia Acute on chronic renal failure Hyperphosphatemia IDDM Hypertension Dispo: We will continue to follow the patient. Thank you for this consultative opportunity. Problem List - Problems (1) FROYLAN (acute kidney injury) Code(s): N17.9 - ACUTE KIDNEY FAILURE, UNSPECIFIED (2) Hyperkalemia Code(s): E87.5 - HYPERKALEMIA (3) Severe anemia Code(s): D64.9 - ANEMIA, UNSPECIFIED (4) Throat discomfort Code(s): R07.0 - PAIN IN THROAT (5) Edema of both legs Code(s): R60.0 - LOCALIZED EDEMA (6) S/P amputation Code(s): Z89.9 - ACQUIRED ABSENCE OF LIMB, UNSPECIFIED (7) Hyperglycemia Code(s): R73.9 - HYPERGLYCEMIA, UNSPECIFIED (8) Osteoarthritis Code(s): M19.90 - UNSPECIFIED OSTEOARTHRITIS, UNSPECIFIED SITE (9) Chronic pain Code(s): G89.29 - OTHER CHRONIC PAIN (10) 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 Code(s): E11.9 - TYPE 2 DIABETES MELLITUS WITHOUT COMPLICATIONS (11) Diabetic neuropathy Code(s): E11.40 - TYPE 2 DIABETES MELLITUS WITH DIABETIC NEUROPATHY, UNSP (12) Foot infection Code(s): L08.9 - LOCAL INFECTION OF THE SKIN AND SUBCUTANEOUS TISSUE, UNSP (13) GERD (gastroesophageal reflux disease) Code(s): K21.9 - GASTRO-ESOPHAGEAL REFLUX DISEASE WITHOUT ESOPHAGITIS (14) HTN (hypertension) Code(s): I10 - ESSENTIAL (PRIMARY) HYPERTENSION (15) Osteomyelitis Code(s): M86.9 - OSTEOMYELITIS, UNSPECIFIED Visit type - Emergency Visit Emergency Visit: Yes ED Registration Date: 08/19/16 Care time: The patient presented to the Emergency Department on the above date and was hospitalized for further evaluation of their emergent condition. - New Patient This patient is new to me today: No - Critical Care Critical Care patient: No
--- NOTE | 2016-08-28 22:00 | PN ---
"Progress Note, Physician Chief Complaint: F/U after incision and drainage of deep abscess 1 week ago and s/p 1 day following multiple bone biopsies of the medial and distal aspect of the left foot in light of a magnetic resonance imaging study highly suggestive of osteomyeltis of the residual metatarsals, greater and lesser tarsal bones and of the tibia and fibula. History of Present Illness: Patient with long history of osteomyelitis of the LLL is followed after incision and drainage of abscess then bone biopsies and is to be evaluated for management of osteomyelitis of all osseous structures of the foot and the distal leg - Current Medication List Current Medications: Active Medications Albuterol Sulfate (Ventolin Hfa Inhaler -) 2 puff IH Q4H PRN PRN Reason: WHEEZING Amlodipine Besylate (Norvasc -) 10 mg PO DAILY [facility] Last Admin: 08/28/16 09:00 Dose: 10 mg Ascorbic Acid (Vitamin C -) 500 mg PO DAILY [facility] Last Admin: 08/28/16 09:00 Dose: 500 mg Calcium Acetate (Phoslo -) 1,334 mg PO TIDCM [facility] Last Admin: 08/28/16 17:12 Dose: 1,334 mg Doxazosin Mesylate (Cardura -) 4 mg PO DAILY [facility] Last Admin: 08/28/16 08:59 Dose: 4 mg Duloxetine HCl (Cymbalta -) 30 mg PO DAILY [facility] Last Admin: 08/28/16 09:00 Dose: 30 mg Fentanyl (Duragesic 25mcg Patch -) 1 patch TD Q72H [facility] Stop: 08/30/16 12:21 Ferrous Sulfate (Feosol -) 325 mg PO DAILY [facility] Last Admin: 08/28/16 09:00 Dose: 325 mg Folic Acid (Folic Acid -) 1 mg PO DAILY [facility] Last Admin: 08/28/16 09:00 Dose: 1 mg Furosemide (Lasix -) 40 mg PO DAILY [facility] Last Admin: 08/28/16 09:00 Dose: 40 mg Ampicillin Sodium/Sulbactam (Sodium 3 gm/ Sodium Chloride) 100 mls @ 200 mls/ hr IVPB Q8H-IV [facility] Last Admin: 08/28/16 17:12 Dose: 200 mls/hr Insulin Aspart (Novolog Vial Sliding Scale -) 1 vial SQ TIDAC [facility] PRN Reason: Protocol Last Admin: 08/28/16 17:12 Dose: 2 units Insulin Detemir (Levemir Vial) 20 units SQ BID@0700,2200 [facility] Last Admin: 08/28/16 06:24 Dose: 20 units Methyl Salicylate (Sterling-Greer -) 1 applic TP BID [facility] Last Admin: 08/28/16 09:00 Dose: Not Given Metoprolol Tartrate (Lopressor -) 25 mg PO BID [facility] Last Admin: 08/28/16 09:01 Dose: 25 mg Mirtazapine (Remeron -) 30 mg PO [facility] Last Admin: 08/27/16 21:57 Dose: 30 mg Miscellaneous (Duragesic Patch Waste) 1 each TD PRN PRN PRN Reason: PAIN Miscellaneous (Duragesic Patch Waste) 1 each MC PRN PRN PRN Reason: PAIN Oxycodone HCl (Roxicodone -) 10 mg PO Q6H PRN PRN Reason: PAIN Last Admin: 08/28/16 05:05 Dose: 10 mg Pantoprazole Sodium (Protonix -) 20 mg PO DAILY [facility] Last Admin: 08/28/16 08:59 Dose: 20 mg Pregabalin (Lyrica -) 100 mg PO BID [facility] Last Admin: 08/28/16 08:59 Dose: 100 mg Sodium Bicarbonate (Sodium Bicarbonate -) 650 mg PO DAILY [facility] Last Admin: 08/28/16 09:00 Dose: 650 mg Trazodone HCl (Desyrel -) 300 mg PO [facility] Last Admin: 08/27/16 21:57 Dose: 300 mg Zinc Sulfate (Orazinc -) 220 mg PO DAILY [facility] Last Admin: 08/28/16 09:00 Dose: 220 mg - Objective Vital Signs: Vital Signs Temperature 37.4 C 08/28/16 18:00 Pulse Rate 82 08/28/16 18:00 Respiratory Rate 18 08/28/16 18:00 Blood Pressure 111/85 08/28/16 18:00 O2 Sat by Pulse Oximetry (%) 88 L 08/28/16 09:00 Constitutional: Yes: Well Nourished Cardiovascular: Yes: WNL Respiratory: Yes: WNL Extremities: Yes: Amputation Edema: LLE: Trace, RLE: Trace Peripheral Pulses WNL: Yes Peripheral Pulses: Left Doralis Pedis: 2+, Right Dorsalis Pedis: 2+ Integumentary: Yes: Incision, Laceration Wound/Incision: Yes: Dressing Dry and Intact, Dressing Removed Neurological: Yes: WNL ...Motor Strength: WNL Additional Findings/Remarks: Patient is s/p 1 day following bone biopsies of the left foot. Dressing removal reveals good post operative hemorrhage which was explained is a good sign for limb salvage to the patient. Cleaned and redressed wound after irrigation- some hemorrhagic oozing was occurring with surgicel applied to the ulcer bed. The purpose of this evaluation and management is to treat the underlying illness of osteomyelitis and to explain to the patient the procedure planned for this Saturday. Have been in communication with the rep of [employer], electronic controls repairer supervisor of Stimulans STIMULAN is a pharmaceutical-grade calcium sulfate that is the perfect partner for your infection management strategy helping you to improve surgical outcomes - See more at: [email or web address] STIMULAN has a unique crystal structure and properties.1,2 Controlled purity May be mixed with liquid, powder and heat-sensitive antibiotics Only STIMULAN undergoes a patented recrystallisation process that starts with pharmaceutical-grade reagents and results in its consistent and reliable performance.18 Predictable elution profile Truly absorbable at an optimal rate Low levels of drainage No third body damage After the cultures and sensitivities are obtained- will decide which antibiotics to use with the product. The hope is that with the use of this after debridement and application that the foot will regenerate healthy bone to remain functional without the need for a transtibial amputation. This is, of course, will be in conjunction with appropriate parenteral chemotherapy for the other infected osseous structures such as the lower leg and distal foot. These structures show less destruction upon imaging. The focus of the procedure will be the region of the incised abscess which shows the most destruction. He understands that this procedure may fail given the extent of the infection but is willing to undergo the attempt. He also undertsands that given the nature of this affliction that exacerbations and remissions may occur for the rest of his life. Detailed discussion (15-20 minutes) with Dr. Welch of the pathology service. Fibrous tissue may represent resorbed bone from osseous destruction no active plasma cells/neutrophils but rely on microbiological analysis which is pending. Requested that the microbiological service reincubate the osseous cultures as patient was an parenteral antibiotics at the time of the biopsy. Patient was septic and thought it prudent to not to discontinue the antibiotics given the gravity of the situation. After discussion will mix 1g vancomycin and 200mg gentamicin in light of the culures obtained at [facility] back in March,. This is usual mixture for Stimulans for polymicrobial diabetic osseous infections. In communication with [employer] and the foot senior resident care director [facility] who rotates at [facility]. CLINICAL INFORMATION: 60 year old male with chronic left foot ulcer. Rule out malignancy. DIAGNOSIS: SKIN, LEFT FOOT, ULCER BASE (BIOPSY): Partially necrotic skin with hyperkeratosis and fibrinopurulent exudate, consistent with ulcer base. Negative for malignancy in submitted specimen in multiple step sections Final - CULTURE Moderate PSEUDOMONAS AERUGINOSA See sensitivity result on # [id number] (03/26/16) [employer] G CORYNEBACTERIUM SP. Final - CULTURE Few PSEUDOMONAS AERUGINOSA Amikacin CORA Sensitive <=2 Aztreonam K-B Sensitive Cefepime CORA Sensitive 4 Ciprofloxacin CORA Sensitive<=0.25 05/02 Gentamicin CORA Sensitive <=1 08/12 Meropenem CORA Sensitive 1 05/02 Piper/Tazobactam CORA Resistant >=128 Tobramycin CORA Sensitive <=1 08/12 BETA HEM[employer] G CORYNEBACTERIUM SP. Specimen A labeled left 2nd metatarsal bone biopsy Received in formalin consists of a cylindrical fragment of rae tissue measuring 0.6 cm in length and 0.1 cm in diameter. All will be submitted. (1 bk) (Decal) Specimen B labeled left 3rd metatarsal bone biopsy Received in formalin consists of multiple cylindrical pieces of rae tissue measuring 1.2 cm in length and 0.1 cm in diameter. All will be submitted. (3 bk) (Decal) A BONE, LEFT 2ND METATARSAL, BIOPSY| -UNREMARKABLE BONE AND ARTICULAR CARTILAGE. -NEGATIVE FOR ACUTE OSTEOMYELITIS. B. BONE, LEFT 3RD METATARSAL, BIOPSY| -ARTICULAR CARTILAGE WITH OSTEODENEGATIVE CHANGES AND UNREMARKABLE BONE. Total time spent on this encounter, on morgan, discussion with patient, discussion with other physicians, surgical staff, and reps exceeded 60 minutes and is to treat the underlying illness. Labs: CBC, BMP 08/28/16 05:35 08/28/16 05:35 INR, PTT INR 1.26 (0.82-1.09) H 08/22/16 08:40 Fibrinogen 355.0 mg/dL (238-498) 08/20/16 17:10 - ....Imaging X-ray: Report Reviewed, Image Reviewed MRI: Report Reviewed, Image Reviewed"
[2016-08-28] MEDS: MIRTAZAPINE 15 MG TABLET (FP) PO SCH (22:32)
[2016-08-28] MEDS: traZODone HCL 100 MG TABLET (FP) PO SCH (22:32)
[2016-08-29] MEDS ORDERED: PT OWN MED DRAWER 7, Y5N ONE (01:06)
[2016-08-29] MEDS: AMPICILLIN NA/SULBACTAM NA 3 GM in SODIUM CHLORIDE 100 ML IVPB SCH ×3 (01:08→18:15)
[2016-08-29] MEDS: INSULIN SLIDING SCALE (NOVOLOG) 1 VIAL SQ SCH ×3 (06:00→17:05)
[2016-08-29 07:10] LABS: BASOPHIL 0.9 % (0-2.0); EOSINOPHIL 3.1 % (0-4.5); MCH 24.3 pg (25.7-33.7); MCHC 31.7 g/dl (32.0-35.9); MEAN CELL VOLUME 76.9 fl (80-96); MEAN PLT VOLUME 7.1 fl (7.5-11.1); NEUTROPHILS 74.5 % (42.8-82.8); PLATELET COUNT 347 K/MM3 (134-434); RDW 26.6 % (11.9-15.9); WHITE BLOOD COUNT 12.5 K/mm3 (4.0-10.0)
[2016-08-29 07:45] LABS: CALCIUM 7.7 mg/dL (8.5-10.1); COCKROFT - GAULT 45.14; CREATININE 2.4 mg/dL (0.7-1.3); MAGNESIUM 1.9 mg/dL (1.8-2.4); PHOSPHOROUS 5.4 mg/dL (2.5-4.9)
[2016-08-29 07:47] LABS: C-REACTIVE PROTEIN 7.9 MG/DL (0.00-0.3)
--- NOTE | 2016-08-29 08:36 | PN ---
Physical Exam: SUBJECTIVE: Patient seen and examined, no new complaints. Admits to increased strength on the left side of U and L extremity. Less foot pain. Denies fever, chills. OBJECTIVE: Vital Signs Period Temp Pulse Resp BP Sys/Gutierrez Pulse Ox Last 24 Hr 97.9 F-99.4 F 82-91 16-20 111-148/84-89 88-94 GENERAL: The patient is awake, alert, and fully oriented, in no acute distress. LUNGS: coarse breath sounds; decreased air movement; rhonchi throughout lungs [place] HEART: Regular rate and rhythm, S1, S2 without murmur, rub or gallop. ABDOMEN: Soft, nontender, nondistended, normoactive bowel sounds, no guarding, no rebound, no hepatosplenomegaly, no masses. EXTREMITIES: 2+ pulses, warm, well-perfused, trace LLE edema; LLE stump with dressing no drainage NEUROLOGICAL: Cranial nerves II through XII grossly intact. Normal speech, gait not observed. PSYCH: Normal mood, normal affect. SKIN: Warm, dry, normal turgor, no rashes or lesions noted Laboratory Results - last 24 hr 08/26/16 08/28/16 08/28/16 07:05 09:15 11:02 WBC RBC Hgb Hct MCV MCHC RDW Plt Count MPV Neutrophils % Lymphocytes % Monocytes % Eosinophils % Basophils % ESR Sodium Potassium Chloride Carbon Dioxide Anion Gap BUN Creatinine POC Glucometer 174 Random Glucose Calcium Phosphorus Magnesium C-Reactive Protein PTH Intact 65 Random Vancomycin Blood Type B POSITIVE Antibody Screen Negative Crossmatch See Detail 08/28/16 08/28/16 08/29/16 17:06 22:24 05:30 WBC RBC Hgb Hct MCV MCHC RDW Plt Count MPV Neutrophils % Lymphocytes % Monocytes % Eosinophils % Basophils % ESR Sodium Potassium Chloride Carbon Dioxide Anion Gap BUN Creatinine POC Glucometer 182 239 100 Random Glucose Calcium Phosphorus Magnesium C-Reactive Protein PTH Intact Random Vancomycin Blood Type Antibody Screen Crossmatch 08/29/16 08/29/16 08/29/16 05:35 05:35 05:35 WBC RBC Hgb Hct MCV MCHC RDW Plt Count MPV Neutrophils % Lymphocytes % Monocytes % Eosinophils % Basophils % ESR 118 H Sodium 144 Potassium 5.1 Chloride 114 H Carbon Dioxide 22 Anion Gap 8 BUN 57 H Creatinine 2.4 H POC Glucometer Random Glucose 78 D Calcium 7.7 L Phosphorus 5.4 H Magnesium 1.9 C-Reactive Protein 7.9 H PTH Intact Random Vancomycin 9.293 Blood Type Antibody Screen Crossmatch 08/29/16 05:35 WBC 12.5 H RBC 2.78 L Hgb 6.8 L* Hct 21.4 L MCV 76.9 L MCHC 31.7 L RDW 26.6 H Plt Count 347 MPV 7.1 L Neutrophils % 74.5 Lymphocytes % 14.6 D Monocytes % 6.9 D Eosinophils % 3.1 Basophils % 0.9 ESR Sodium Potassium Chloride Carbon Dioxide Anion Gap BUN Creatinine POC Glucometer Random Glucose Calcium Phosphorus Magnesium C-Reactive Protein PTH Intact Random Vancomycin Blood Type Antibody Screen Crossmatch Active Medications Generic Name Dose Route Start Last Admin Trade Name Freq PRN Reason Stop Dose Admin Albuterol Sulfate 2 puff 08/27/16 18:31 Ventolin Hfa Inhaler - IH Q4H PRN WHEEZING Amlodipine Besylate 10 mg 08/28/16 10:00 08/28/16 09:00 Norvasc - PO 10 mg DAILY IGGY Administration Ascorbic Acid 500 mg 08/28/16 10:00 08/28/16 09:00 Vitamin C - PO 500 mg DAILY IGGY Administration Calcium Acetate 1,334 mg 08/28/16 08:00 08/28/16 17:12 Phoslo - PO 1,334 mg TIDCM IGGY Administration Doxazosin Mesylate 4 mg 08/28/16 10:00 08/28/16 08:59 Cardura - PO 4 mg DAILY IGGY Administration Duloxetine HCl 30 mg 08/28/16 10:00 08/28/16 09:00 Cymbalta - PO 30 mg DAILY IGGY Administration Fentanyl 1 patch 08/29/16 12:30 Duragesic 25mcg Patch - TD 08/30/16 12:21 Q72H IGGY Ferrous Sulfate 325 mg 08/28/16 10:00 08/28/16 09:00 Feosol - PO 325 mg DAILY IGGY Administration Folic Acid 1 mg 08/28/16 10:00 08/28/16 09:00 Folic Acid - PO 1 mg DAILY IGGY Administration Furosemide 40 mg 08/28/16 10:00 08/28/16 09:00 Lasix - PO 40 mg DAILY IGGY Administration Ampicillin Sodium/Sulbactam 100 mls @ 200 mls/hr 08/28/16 02:00 08/29/16 01:08 Sodium 3 gm/ Sodium Chloride IVPB 200 mls/hr Q8H-IV IGGY Administration Insulin Aspart 1 vial 08/28/16 07:00 08/29/16 06:00 Novolog Vial Sliding Scale - SQ Not Given TIDAC [facility] Protocol Insulin Detemir 20 units 08/27/16 22:00 08/28/16 22:31 Levemir Vial SQ 20 units BID@0700,2200 IGGY Administration Methyl Salicylate 1 applic 08/27/16 22:00 08/28/16 22:41 Sterling-Greer - TP Not Given BID [facility] Metoprolol Tartrate 25 mg 08/27/16 22:00 08/28/16 22:32 Lopressor - PO 25 mg BID IGGY Administration Mirtazapine 30 mg 08/27/16 22:00 08/28/16 22:32 Remeron - PO 30 mg HS IGGY Administration Miscellaneous 1 each 08/27/16 18:31 Duragesic Patch Waste TD PRN PRN PAIN Miscellaneous 1 each 08/27/16 18:31 Duragesic Patch Waste MC PRN PRN PAIN Oxycodone HCl 10 mg 08/27/16 18:31 08/28/16 22:38 Roxicodone - PO 10 mg Q6H PRN Administration PAIN Pantoprazole Sodium 20 mg 08/28/16 10:00 08/28/16 08:59 Protonix - PO 20 mg DAILY IGGY Administration Pregabalin 100 mg 08/27/16 22:00 08/28/16 22:31 Lyrica - PO 100 mg BID IGGY Administration Sodium Bicarbonate 650 mg 08/28/16 10:00 08/28/16 09:00 Sodium Bicarbonate - PO 650 mg DAILY IGGY Administration Trazodone HCl 300 mg 08/27/16 22:00 08/28/16 22:32 Desyrel - PO 300 mg HS IGGY Administration Zinc Sulfate 220 mg 08/28/16 10:00 08/28/16 09:00 Orazinc - PO 220 mg DAILY IGGY Administration Head, Facial Bones, Cervical Spine CT: no intracranial/extracranial bleeding, no edema, no mass, no evidence of ischemia, + R supraorbital soft tissue swelling with laceration, no facial or spinal Fx MRI C-spine: prevertebral, retropharyngeal fluid collection/edema, likely non- infectious in etiology CXR: no acute pathology Echo: mild LVH ; LV mildy dilated ; preserved LVSF; no regional wall motin abnormalities; Mild to mod MR; Mod TR: RVSP 30-40mmhg; mild pulmonary hypertention; left and right atria mod dilated; mild aortic root dilation; small pericardial effusion <1cmMRI: left Foot + osteomyelitis of left foot, distal tibia, lateral and medial malleolus ASSESSMENT/PLAN: Pt is a 60 yo M with PMHx of DM, HTN, diabetic neuropathy with left foot amputation, and CKD who presents to the ED s/p syncopal episode from standing position with +LOC and +head trauma. Pt was found to have a Hgb of 3.7 and WBC of 26.1 upon presentation. #Syncopal episode sec to Acute on chronic anemia secondary to acute infection from osteomyelitits -total 9U PRBC transfused; another today due to heme 6.8; repeat cbc after unit -keep hemoglobin >7 -Hx of colonoscopy in December of 2015 with subsequent Bx of colonic polyps negative. Pt reports nml EGD done around the same time. Both performed by Dr. Etienne; no need for another colonoscopy at this time -low serum iron; low TIBC, low iron saturation, high ferritin in setting of acute infection -hemo/onc consulted #sepsis secondary to osteomyelitis: s/p debridement 08/27 -wbc up trend down -daily dose vancomycin; Unasyn day 4; -blood culture +beta hemolytic strep Group G -wound culture same -MRI +osteomyelitis; -old sensitivities noted from previous infection -Dr Galvan ; plan to I&D on Saturday; with bone glue therapy; if treatment fail, will proceed with transtibial amputation #hypertension: -metoprolol 25mg bid -norsvac 10mg -diovan held due to FROYLAN #photophobia: improved -orbital CT negative -optho consult #Hyperkalemia; improved; -Medically treated with Ca gluconate, Insulin/D50, and kaexylate on 08/27 -Continue to trend -maintain low K diet #hyperphosphatemia: improved -phoslo with meals tid #Acute on chronic renal failure: slight decline -cr 2.4 today from 2.3 yest -Renal US showing bilateral echogenic kidneys: this relates to chronic kidney disease -Renal consulted #Retropharyngeal/prevertebral edema on MRI -MRI does not correlate to active infection -ENT consulted, does not feel this is an abscess; no intervention from him at this time # L LE swelling; resolved -Duplex US negative for DVT # Diabetes: controlled -levemir increased to 22 U bid -insulin ss -BGM FEN: Fluids: po Electrolytes:trend Diet: diabetic; low K DVT ppx: scds Disposition: I and D saturday; cont IV antibiotics Visit type - Emergency Visit Emergency Visit: Yes ED Registration Date: 08/19/16 Care time: The patient presented to the Emergency Department on the above date and was hospitalized for further evaluation of their emergent condition. - New Patient This patient is new to me today: No - Critical Care Critical Care patient: No
[2016-08-29] MEDS ORDERED: EPOETIN ALFA 2,000 UNITS/1 ML VIAL SQ ONE ×2 (08:38→09:30)
[2016-08-29] MEDS: CALCIUM ACETATE 667 MG CAPSULE (FP) PO SCH ×3 (09:11→18:14)
[2016-08-29] MEDS: INSULIN DETEMIR 100 UNITS/ML MDV SQ SCH ×2 (09:11→22:55)
--- NOTE | 2016-08-29 09:38 | PN ---
Progress Note (short form) - Note Progress Note: awake and alert please see residents not for full details s/p bone biopsy Vital Signs Period Temp Pulse Resp BP Sys/Gutierrez Pulse Ox Last 24 Hr 97.5 F-99.4 F 75-91 16-19 111-148/82-89 94 cor-rrr lungs clear abd soft, nt ext foot bandaged CBC, BMP 08/29/16 05:35 08/29/16 05:35 Microbiology 08/22/16 05:35 Blood - Peripheral Venous Blood Culture - Final NO GROWTH AFTER 5 DAYS INCUBATION 08/22/16 05:30 Blood - Peripheral Venous Blood Culture - Final NO GROWTH AFTER 5 DAYS INCUBATION 08/19/16 22:20 Blood - Peripheral Venous Blood Culture - Final Staphylococcus Epidermidis#2 Staphylococcus Epidermidis Staphylococcus Epidermidis#3 08/21/16 21:20 Foot - Left Instep Gram Stain - Final 08/21/16 21:20 Foot - Left Instep Wound Culture - Final Beta Hem Streptococcus Group G 08/19/16 22:20 Blood - Peripheral Venous Blood Culture - Final Beta Hem Streptococcus Group G Staphylococcus Epidermidis 08/21/16 03:00 Abscess Gram Stain - Final 08/21/16 03:00 Abscess Wound Culture - Final Beta Hem Streptococcus Group G 08/20/16 07:40 Urine - Urine - Catheterized Urine Culture - Final NO GROWTH OBTAINED a/p bacteremia- group G strep/staph epi foot abscess s/p debridement Osteomyelitis s/p bone biopsy anemia feli/ckd diabetes unasyn and vanco by levels f/u cultures
--- NOTE | 2016-08-29 10:16 | PN ---
Physical Exam: SUBJECTIVE: Patient seen and examined. He is feeling good, no complaints, regular BMs, no dysuria, chest pain, SOB, fever, chills. OBJECTIVE: Vital Signs Period Temp Pulse Resp BP Sys/Gutierrez Pulse Ox Last 24 Hr 97.5 F-99.4 F 75-91 16-19 111-148/82-89 94 GENERAL: The patient is awake, alert, and fully oriented, in no acute distress. HEAD: Normal with no signs of trauma. EYES: PERRL, extraocular movements intact, sclera anicteric, conjunctiva clear. No ptosis. ENT: Ears normal, nares patent, oropharynx clear without exudates, moist mucous membranes. NECK: Trachea midline, limited range of motion due to pain, supple. LUNGS: Breath sounds equal, clear to auscultation bilaterally, no wheezes, no crackles, no accessory muscle use. HEART: Regular rate and rhythm, S1, S2 without murmur, rub or gallop. ABDOMEN: Soft, nontender, nondistended, normoactive bowel sounds, no guarding, no rebound, no hepatosplenomegaly, no masses. EXTREMITIES: 1+ pulses, warm, 1+ peripheral edema in LE B/L, RLE: 1 toe amputated, deformities in second and fourth toe, no redness, swelling, edema, LLE: bandage. NEUROLOGICAL:No facial asymmetry. Normal speech, gait not observed. PSYCH: Normal mood, normal affect. SKIN: Warm, dry, normal turgor, no rashes or lesions noted Laboratory Results - last 24 hr 08/29/16 08/29/16 08/29/16 05:35 05:35 05:35 WBC RBC Hgb Hct MCV MCHC RDW Plt Count MPV Neutrophils % Lymphocytes % Monocytes % Eosinophils % Basophils % ESR 118 H Sodium 144 Potassium 5.1 Chloride 114 H Carbon Dioxide 22 Anion Gap 8 BUN 57 H Creatinine 2.4 H POC Glucometer Random Glucose 78 D Calcium 7.7 L Phosphorus 5.4 H Magnesium 1.9 C-Reactive Protein 7.9 H PTH Intact Random Vancomycin 9.293 Blood Type Antibody Screen Crossmatch 08/29/16 05:35 WBC 12.5 H RBC 2.78 L Hgb 6.8 L* Hct 21.4 L MCV 76.9 L MCHC 31.7 L RDW 26.6 H Plt Count 347 MPV 7.1 L Neutrophils % 74.5 Lymphocytes % 14.6 D Monocytes % 6.9 D Eosinophils % 3.1 Basophils % 0.9 ESR Sodium Potassium Chloride Carbon Dioxide Anion Gap BUN Creatinine POC Glucometer Random Glucose Calcium Phosphorus Magnesium C-Reactive Protein PTH Intact Random Vancomycin Blood Type Antibody Screen Crossmatch Active Medications Generic Name Dose Route Start Last Admin Trade Name Kashifq PRN Reason Stop Dose Admin Albuterol Sulfate 2 puff 08/27/16 18:31 Ventolin Hfa Inhaler - IH Q4H PRN WHEEZING Albuterol/Ipratropium 1 amp 08/29/16 14:00 Duoneb - NEB TIDR IGGY Amlodipine Besylate 10 mg 08/28/16 10:00 08/28/16 09:00 Norvasc - PO 10 mg DAILY IGGY Administration Ascorbic Acid 500 mg 08/28/16 10:00 08/28/16 09:00 Vitamin C - PO 500 mg DAILY IGGY Administration Calcium Acetate 1,334 mg 08/28/16 08:00 08/29/16 09:11 Phoslo - PO 1,334 mg TIDCM IGGY Administration Doxazosin Mesylate 4 mg 08/28/16 10:00 08/28/16 08:59 Cardura - PO 4 mg DAILY IGGY Administration Duloxetine HCl 30 mg 08/28/16 10:00 08/28/16 09:00 Cymbalta - PO 30 mg DAILY IGGY Administration Fentanyl 1 patch 08/29/16 12:30 Duragesic 25mcg Patch - TD 08/30/16 12:21 Q72H IGGY Ferrous Sulfate 325 mg 08/28/16 10:00 08/28/16 09:00 Feosol - PO 325 mg DAILY IGGY Administration Folic Acid 1 mg 08/28/16 10:00 08/28/16 09:00 Folic Acid - PO 1 mg DAILY IGGY Administration Furosemide 40 mg 08/28/16 10:00 08/28/16 09:00 Lasix - PO 40 mg DAILY IGGY Administration Ampicillin Sodium/Sulbactam 100 mls @ 200 mls/hr 08/28/16 02:00 08/29/16 09:18 Sodium 3 gm/ Sodium Chloride IVPB 200 mls/hr Q8H-IV IGGY Administration Insulin Aspart 1 vial 08/28/16 07:00 08/29/16 06:00 Novolog Vial Sliding Scale - SQ Not Given TIDAC IGGY Protocol Insulin Detemir 20 units 08/27/16 22:00 08/29/16 09:11 Levemir Vial SQ 20 units BID@0700,2200 IGGY Administration Methyl Salicylate 1 applic 08/27/16 22:00 08/28/16 22:41 Sterling-Greer - TP Not Given BID [facility] Metoprolol Tartrate 25 mg 08/27/16 22:00 08/28/16 22:32 Lopressor - PO 25 mg BID IGGY Administration Mirtazapine 30 mg 08/27/16 22:00 08/28/16 22:32 Remeron - PO 30 mg HS IGGY Administration Miscellaneous 1 each 08/27/16 18:31 Duragesic Patch Waste TD PRN PRN PAIN Miscellaneous 1 each 08/27/16 18:31 Duragesic Patch Waste MC PRN PRN PAIN Oxycodone HCl 10 mg 08/27/16 18:31 08/28/16 22:38 Roxicodone - PO 10 mg Q6H PRN Administration PAIN Pantoprazole Sodium 20 mg 08/28/16 10:00 08/28/16 08:59 Protonix - PO 20 mg DAILY IGGY Administration Pregabalin 100 mg 08/27/16 22:00 08/28/16 22:31 Lyrica - PO 100 mg BID IGGY Administration Sodium Bicarbonate 650 mg 08/28/16 10:00 08/28/16 09:00 Sodium Bicarbonate - PO 650 mg DAILY IGGY Administration Trazodone HCl 300 mg 08/27/16 22:00 08/28/16 22:32 Desyrel - PO 300 mg HS [facility] Administration Zinc Sulfate 220 mg 08/28/16 10:00 08/28/16 09:00 Orazinc - PO 220 mg DAILY IGGY Administration Microbiology 08/22/16 05:35 Blood - Peripheral Venous Blood Culture - Final NO GROWTH AFTER 5 DAYS INCUBATION 08/22/16 05:30 Blood - Peripheral Venous Blood Culture - Final NO GROWTH AFTER 5 DAYS INCUBATION 08/19/16 22:20 Blood - Peripheral Venous Blood Culture - Final Staphylococcus Epidermidis#2 Staphylococcus Epidermidis Staphylococcus Epidermidis#3 08/21/16 21:20 Foot - Left Instep Gram Stain - Final 08/21/16 21:20 Foot - Left Instep Wound Culture - Final Beta Hem Streptococcus Group G 08/19/16 22:20 Blood - Peripheral Venous Blood Culture - Final Beta Hem Streptococcus Group G Staphylococcus Epidermidis 08/21/16 03:00 Abscess Gram Stain - Final 08/21/16 03:00 Abscess Wound Culture - Final Beta Hem Streptococcus Group G 08/20/16 07:40 Urine - Urine - Catheterized Urine Culture - Final NO GROWTH OBTAINED MRI C-spine: prevertebral, retropharyngeal fluid collection/edema, likely non- infectious in etiology MRI: left Foot + osteomyelitis of left foot, distal tibia, lateral and medial malleolus ASSESSMENT/PLAN: 60 year old male with a significant PMH of HTN, IDDM, PAD with multiple amputations, h/o of osteomyelitis in left foot, diabetic nephropathy presents to ED via EMS after an episode of syncope that occurred at the assisted living facility.The patient reports that he was in elevator when he had LOC. he states that he felt lightheaded before the syncopal episode. He was admitted for syncope/anemia/osteomyelitis. Bacteremia due to LLE abscess: -the pt had abscess that was drained in the operating room, -cont Unasyn, day 6, Vancomycin one dose given today, Vanco level 9.2 -s/p surgical debridement -blood cx positive for Staph coag neg, Staph epidermidis, beta hemolytic Strep G , -blood cultures were repeated: no growth -abscess culture beta hemolytic Strep group G osteomyelitis: -s/p bone biopsy, results are pending -MRI done, osteomyeltis of the residual metatarsals, greater and lesser tarsal bones and of the tibia and fibula Watery diarrhea: -diarrhea resolved Prevertebral, retropharyngeal fluid collection, -edema likely of noninfectious etiology -ENT saw the pt , no further treatment recommended Severe Anemia Hypercalcemia Syncope Hyperkalemia Acute on chronic renal failure Hyperphosphatemia IDDM Hypertension Dispo: We will continue to follow the patient. Thank you for this consultative opportunity. Problem List - Problems (1) FROYLAN (acute kidney injury) Code(s): N17.9 - ACUTE KIDNEY FAILURE, UNSPECIFIED (2) Hyperkalemia Code(s): E87.5 - HYPERKALEMIA (3) Severe anemia Code(s): D64.9 - ANEMIA, UNSPECIFIED (4) Throat discomfort Code(s): R07.0 - PAIN IN THROAT (5) Edema of both legs Code(s): R60.0 - LOCALIZED EDEMA (6) S/P amputation Code(s): Z89.9 - ACQUIRED ABSENCE OF LIMB, UNSPECIFIED (7) Hyperglycemia Code(s): R73.9 - HYPERGLYCEMIA, UNSPECIFIED (8) Osteoarthritis Code(s): M19.90 - UNSPECIFIED OSTEOARTHRITIS, UNSPECIFIED SITE (9) Chronic pain Code(s): G89.29 - OTHER CHRONIC PAIN (10) 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 Code(s): E11.9 - TYPE 2 DIABETES MELLITUS WITHOUT COMPLICATIONS (11) Diabetic neuropathy Code(s): E11.40 - TYPE 2 DIABETES MELLITUS WITH DIABETIC NEUROPATHY, UNSP (12) Foot infection Code(s): L08.9 - LOCAL INFECTION OF THE SKIN AND SUBCUTANEOUS TISSUE, UNSP (13) GERD (gastroesophageal reflux disease) Code(s): K21.9 - GASTRO-ESOPHAGEAL REFLUX DISEASE WITHOUT ESOPHAGITIS (14) HTN (hypertension) Code(s): I10 - ESSENTIAL (PRIMARY) HYPERTENSION (15) Osteomyelitis Code(s): M86.9 - OSTEOMYELITIS, UNSPECIFIED Visit type - Emergency Visit Emergency Visit: Yes ED Registration Date: 08/19/16 Care time: The patient presented to the Emergency Department on the above date and was hospitalized for further evaluation of their emergent condition. - New Patient This patient is new to me today: No - Critical Care Critical Care patient: No - Discharge Referral Referred to [facility] Med P.C.: No
[2016-08-29] MEDS: METHYL SALICYLATE/MENTHOL OINT 30 GM TUBE TP SCH ×2 (10:18→22:51)
[2016-08-29] MEDS: DULoxetine HCL 30 MG CAPSULE.DR (FP) PO SCH (10:19)
[2016-08-29] MEDS: SODIUM BICARBONATE 650 MG TABLET PO SCH (10:19)
[2016-08-29] MEDS: FERROUS SO4 325 MG TABLET (FP) PO SCH (10:19)
[2016-08-29] MEDS: FUROSEMIDE 40 MG TABLET (FP) PO SCH (10:19)
[2016-08-29] MEDS: DOXAZOSIN MESYLATE 4 MG TABLET PO SCH (10:19)
[2016-08-29] MEDS: METOPROLOL TARTRATE 25 MG TABLET (FP) PO SCH ×2 (10:20→22:54)
[2016-08-29] MEDS: ASCORBIC ACID 500 MG TABLET (FP) PO SCH (10:20)
[2016-08-29] MEDS: amLODIPine BESYLATE 10 MG TABLET (FP) PO SCH (10:20)
[2016-08-29] MEDS: PREGABALIN 50 MG CAPSULE PO SCH ×2 (10:20→22:54)
[2016-08-29] MEDS: PANTOPRAZOLE 20 MG TABLET (FP) PO SCH (10:20)
[2016-08-29] MEDS: FOLIC ACID 1 MG TABLET (FP) PO SCH (10:20)
[2016-08-29] MEDS: ZINC SULFATE 220 MG CAPSULE (FP) PO SCH (10:20)
[2016-08-29] MEDS ORDERED: VANCOMYCIN 1 GRAM (PRE-DOCKED) 1,000 MG/250 ML BAG IVPB ONE (10:27)
[2016-08-29] MEDS ORDERED: INSULIN (NOVOLOG) ASPART 100 UNITS/ML 10ML VIAL ONE (10:27)
[2016-08-29] MEDS: oxyCODONE HCL 5 MG TABLET PO PRN ×2 (10:29→18:21)
[2016-08-29] MEDS ORDERED: VANCOMYCIN 1 GRAM (PRE-DOCKED) 250 ML IVPB ONE (11:00)
[2016-08-29 11:43] LABS: ANISOCYTOSIS 2+; FRAGMENTED CELL FEW; HYPOCHROMIA 2+; MICROCYTOSIS 2+; TARGET CELLS 2+
[2016-08-29] MEDS ORDERED: fentaNYL 25mcg/hr PATCH.TD72 TD SCH (12:30)
--- NOTE | 2016-08-29 13:53 | PN ---
Teaching Attending Note Name of Resident: Sis Barrett ATTENDING PHYSICIAN STATEMENT I saw and evaluated the patient. I reviewed the resident's note and discussed the case with the resident. I agree with the resident's findings and plan as documented. SUBJECTIVE:states his weakness has improved. denies CP, SOB,fever, chills OBJECTIVE: Last Vital Signs Temp Pulse Resp BP Pulse Ox 97.7 F 73 18 144/84 94 L 08/29/16 13:37 08/29/16 13:37 08/29/16 13:37 08/29/16 13:37 08/28/16 21:00 General NAD CV S1 S2 RRR no murmur/rub/gallop Lungs CTA B/L anteriorly Abdomen soft NT/ND Extremities trace pitting edema B/L LE. L foot wrapped in gauze with some seeping of serosangeous fluid seen on gauze no edema RLE ASSESSMENT AND PLAN: 60yo M with PMH HTH, DM, Peripheral neuropathy, OM of L foot s/p amputation presented to the ER and was admitted for further evaluation of their emergent condition 1. Symptomatic anemia- anemia of chronic disease due to sepsis. s/p 8 units PRBC this admission. Hgb remains low will give additional 1 unit and epo. check post transfusion CBC.no signs of active bleeding. GI workup done several months ago and negative per pt. obtain copies from GI. hematology on board. protein studies pending. 2. Sepsis due to L foot OM- s/p bone bx. awaiting cx report. plan for new binding product "simulans" to be placed by podiatry. will need to discuss plan for further intervention on this admission or if there is waiting period to see if product was successful. missed 3 days of vanco. level low today. re-order Vanco 1 g (was therapeutic on 1g several days ago) check vanco level daily. cont unasyn. await bx report. pain control 3. Hyperkalemia- likely in setting of FROYLAN. persistent. no indication for HD at this time. nephrology on board 4. Acute on CKD- Cr stable. on bicarb. nephrology on board. 5. hyperphosphatemia- likely due to kidney failure. improved. on phoslo. 6. diabetes- A1c 7.6. controlled. cont levemir BID and iss. diabetic/renal diet 7. HTN- improved. started on metoprolol 8. DVT ppx- SCD
[2016-08-29] MEDS: ALBUTEROL SO4 2.5/IPRATROPIUM 0.5 INH SOL 3 ML VIAL.NEB. NEB SCH ×2 (14:00→22:48)
--- NOTE | 2016-08-29 14:47 | PATH ---
Surgical Pathology Report Patient Name: MARIAJOSE MALAVE [facility] [place]. Rec. #: [id number] /Age/Gender: 1955 (Age: 60) / M Account: [id number] Location: 4 PEDS/ADOL Taken: 08/27/2016 Received: 08/28/2016 Reported: 08/29/2016 Physicians: Alfonso Kimble M.D. Specimen(s) Received DEBRIDEMENT TISSUE LEFT FOOT Clinical History Osteomyelitis Final Diagnosis BONE AND SOFT TISSUE, LEFT FOOT, DEBRIDEMENT: SOFT TISSUE WITH GANGRENOUS NECROSIS AND ASSOCIATED ACUTE AND CHRONIC INFLAMMATION. PORTIONS OF BONE WITH INTERSTITIAL FIBROSIS AND MARKED REACTIVE CHANGES. NO OSTEOMYELITIS IDENTIFIED. Comment: Recommend correlation with clinical findings and follow up as clinically indicated. Electronically Signed Raymond Welch M.D. Gross Description Received in formalin labeled "biopsy of left great tissue/bone tarsal," is a 3.8 x 3.4 x 0.8 cm portion of rae soft tissue with minimal attached bone. Architectural Drafter sections are submitted in one cassette, following decalcification. /08/28/2016 saudi08/28/2016
--- NOTE | 2016-08-29 15:33 | PN ---
Progress Note (short form) - Note Progress Note: Renal Follow up for FROYLAN/CKD with Hyperkalemia Pt seen and examined at the bedside no complaints no sob or chest pain Vital Signs Temperature 97.7 F 08/29/16 13:37 Pulse Rate 73 08/29/16 13:37 Respiratory Rate 18 08/29/16 13:37 Blood Pressure 144/84 08/29/16 13:37 O2 Sat by Pulse Oximetry (%) 96 08/29/16 13:30 Intake & Output 08/26/16 08/27/16 08/28/16 08/29/16 23:59 23:59 23:59 23:59 Intake Total 480 600 940 100 Output Total 1700 2200 1950 500 Balance -1220 -1600 -1010 -400 Gen: NAD, awake and alert, drowsy HEENT: No JVD CVS: RRR, No M/R Lungs: Dec BS at lung bases, no rales Abd: NT/ND Ext: 1+ edema in LE, Left TMA CBC, BMP 08/29/16 05:35 08/29/16 05:35 Laboratory Tests 08/27/16 08/27/16 08/29/16 05:41 05:41 05:35 Calcium 8.1 L 7.7 L Phosphorus 6.3 H 5.4 H Magnesium 1.9 C-Reactive Protein 7.9 H Current Medications Albuterol Sulfate (Ventolin Hfa Inhaler -) 2 puff IH Q4H PRN PRN Reason: WHEEZING Albuterol/Ipratropium (Duoneb -) 1 amp NEB TIDR [facility] Last Admin: 08/29/16 14:00 Dose: 1 amp Amlodipine Besylate (Norvasc -) 10 mg PO DAILY [facility] Last Admin: 08/29/16 10:20 Dose: 10 mg Ascorbic Acid (Vitamin C -) 500 mg PO DAILY [facility] Last Admin: 08/29/16 10:20 Dose: 500 mg Calcium Acetate (Phoslo -) 1,334 mg PO TIDCM [facility] Last Admin: 08/29/16 12:07 Dose: 1,334 mg Doxazosin Mesylate (Cardura -) 4 mg PO DAILY [facility] Last Admin: 08/29/16 10:19 Dose: 4 mg Duloxetine HCl (Cymbalta -) 30 mg PO DAILY [facility] Last Admin: 08/29/16 10:19 Dose: 30 mg Fentanyl (Duragesic 25mcg Patch -) 1 patch TD Q72H [facility] Stop: 08/30/16 12:21 Last Admin: 08/29/16 12:56 Dose: 1 patch Ferrous Sulfate (Feosol -) 325 mg PO DAILY [facility] Last Admin: 08/29/16 10:19 Dose: 325 mg Folic Acid (Folic Acid -) 1 mg PO DAILY [facility] Last Admin: 08/29/16 10:20 Dose: 1 mg Furosemide (Lasix -) 40 mg PO DAILY [facility] Last Admin: 08/29/16 10:19 Dose: 40 mg Ampicillin Sodium/Sulbactam (Sodium 3 gm/ Sodium Chloride) 100 mls @ 200 mls/ hr IVPB Q8H-IV [facility] Last Admin: 08/29/16 09:18 Dose: 200 mls/hr Insulin Aspart (Novolog Vial Sliding Scale -) 1 vial SQ TIDAC [facility] PRN Reason: Protocol Last Admin: 08/29/16 12:06 Dose: Not Given Insulin Detemir (Levemir Vial) 20 units SQ BID@0700,2200 [facility] Last Admin: 08/29/16 09:11 Dose: 20 units Methyl Salicylate (Sterling-Greer -) 1 applic TP BID [facility] Last Admin: 08/29/16 10:18 Dose: 1 applic Metoprolol Tartrate (Lopressor -) 25 mg PO BID [facility] Last Admin: 08/29/16 10:20 Dose: 25 mg Mirtazapine (Remeron -) 30 mg PO HS [facility] Last Admin: 08/28/16 22:32 Dose: 30 mg Miscellaneous (Duragesic Patch Waste) 1 each TD PRN PRN PRN Reason: PAIN Last Admin: 08/29/16 12:58 Dose: 1 each Miscellaneous (Duragesic Patch Waste) 1 each MC PRN PRN PRN Reason: PAIN Oxycodone HCl (Roxicodone -) 10 mg PO Q6H PRN PRN Reason: PAIN Last Admin: 08/29/16 10:29 Dose: 10 mg Pantoprazole Sodium (Protonix -) 20 mg PO DAILY [facility] Last Admin: 08/29/16 10:20 Dose: 20 mg Pregabalin (Lyrica -) 100 mg PO BID [facility] Last Admin: 08/29/16 10:20 Dose: 100 mg Sodium Bicarbonate (Sodium Bicarbonate -) 650 mg PO DAILY [facility] Last Admin: 08/29/16 10:19 Dose: 650 mg Trazodone HCl (Desyrel -) 300 mg PO HS [facility] Last Admin: 08/28/16 22:32 Dose: 300 mg Zinc Sulfate (Orazinc -) 220 mg PO DAILY [facility] Last Admin: 08/29/16 10:20 Dose: 220 mg A/P 60 year old Gentleman with PMhx of CKD (baseline unclear), Hypertension, IDDM, PVD who presented s/p syncopal episode and found to have acute Anemia with Hgb of 3.7 and BUN/Cr of 41/2.7 and K of 6.8. #FROYLAN -> CKD Renal function stable at this time Continue Lasix daily #Hyperphosphatemia continue phoslo f/u PTH #Acute Anemia Heme Following getting transfusion today start epogen as per Heme may require iron supplementation #Bactermia/Sepsis/Osteomylitis continue Abx as per ID #Hypertension Continue amlodipine and Gerard Jansen DO
[2016-08-29 19:40] LABS: MCH 24.8 pg (25.7-33.7); MCHC 31.1 g/dl (32.0-35.9); MEAN CELL VOLUME 79.6 fl (80-96); MEAN PLT VOLUME 7.3 fl (7.5-11.1); PLATELET COUNT 374 K/MM3 (134-434); RDW 25.5 % (11.9-15.9); WHITE BLOOD COUNT 11.1 K/mm3 (4.0-10.0)
--- NOTE | 2016-08-29 21:10 | PN ---
Progress Note (short form) - Note Progress Note: ENT follow-up consult requested pt denies throat problems pain, voice change eating well, states no swallowing problems PE NAD oral cavity - no trismus, poor dentition, partial upper dentures oropharynx - normal, elongated uvula voice clear and strong no stridor or respiratory distress Neck: supple, no mass or node, thyroid and salivary glands WNL Impression: throat asymptomatic and normal oropharyngeal exam previously identified retropharyngeal swelling on CT scan no clinical evidence of acute pharyngeal process recommend: continue present management will see again as needed Srini Anderson MD Problem List - Problems (1) Throat discomfort Code(s): R07.0 - PAIN IN THROAT
[2016-08-29] MEDS ORDERED: traZODone HCL 50 MG TABLET (FP) ONE (22:50)
[2016-08-29] MEDS: traZODone HCL 100 MG TABLET (FP) PO SCH (22:52)
[2016-08-29] MEDS: MIRTAZAPINE 15 MG TABLET (FP) PO SCH (22:53)
[2016-08-30] MEDS: oxyCODONE HCL 5 MG TABLET PO PRN ×2 (00:45→22:22)
[2016-08-30] MEDS ORDERED: PT OWN MED DRAWER 7, Y5N ONE ×2 (01:48→09:49)
[2016-08-30] MEDS: AMPICILLIN NA/SULBACTAM NA 3 GM in SODIUM CHLORIDE 100 ML IVPB SCH ×2 (01:54→10:06)
[2016-08-30] MEDS: INSULIN SLIDING SCALE (NOVOLOG) 1 VIAL SQ SCH ×3 (06:33→16:38)
[2016-08-30] MEDS: INSULIN DETEMIR 100 UNITS/ML MDV SQ SCH ×2 (06:33→22:33)
[2016-08-30] MEDS: ALBUTEROL SO4 2.5/IPRATROPIUM 0.5 INH SOL 3 ML VIAL.NEB. NEB SCH ×3 (06:45→22:52)
[2016-08-30 07:34] LABS: BASOPHIL 0.8 % (0-2.0); EOSINOPHIL 3.4 % (0-4.5); MCH 25.1 pg (25.7-33.7); MCHC 31.9 g/dl (32.0-35.9); MEAN CELL VOLUME 78.7 fl (80-96); MEAN PLT VOLUME 7.3 fl (7.5-11.1); NEUTROPHILS 76.9 % (42.8-82.8); PLATELET COUNT 337 K/MM3 (134-434); RDW 25.7 % (11.9-15.9)
[2016-08-30 07:58] LABS: CALCIUM 8.3 mg/dL (8.5-10.1); COCKROFT - GAULT 45.14; CREATININE 2.4 mg/dL (0.7-1.3); MAGNESIUM 1.9 mg/dL (1.8-2.4); PHOSPHOROUS 5.2 mg/dL (2.5-4.9)
[2016-08-30] MEDS: ASCORBIC ACID 500 MG TABLET (FP) PO SCH (10:02)
[2016-08-30] MEDS: PREGABALIN 50 MG CAPSULE PO SCH ×2 (10:02→22:22)
[2016-08-30] MEDS: FOLIC ACID 1 MG TABLET (FP) PO SCH (10:02)
[2016-08-30] MEDS: DULoxetine HCL 30 MG CAPSULE.DR (FP) PO SCH (10:02)
[2016-08-30] MEDS: amLODIPine BESYLATE 10 MG TABLET (FP) PO SCH (10:02)
[2016-08-30] MEDS: FERROUS SO4 325 MG TABLET (FP) PO SCH (10:02)
[2016-08-30] MEDS: SODIUM BICARBONATE 650 MG TABLET PO SCH (10:03)
[2016-08-30] MEDS: FUROSEMIDE 40 MG TABLET (FP) PO SCH (10:03)
[2016-08-30] MEDS: ZINC SULFATE 220 MG CAPSULE (FP) PO SCH (10:03)
[2016-08-30] MEDS: CALCIUM ACETATE 667 MG CAPSULE (FP) PO SCH ×3 (10:03→18:33)
[2016-08-30] MEDS: PANTOPRAZOLE 20 MG TABLET (FP) PO SCH (10:03)
[2016-08-30] MEDS: METOPROLOL TARTRATE 25 MG TABLET (FP) PO SCH ×2 (10:03→22:22)
[2016-08-30] MEDS: DOXAZOSIN MESYLATE 4 MG TABLET PO SCH (10:03)
[2016-08-30] MEDS: METHYL SALICYLATE/MENTHOL OINT 30 GM TUBE TP SCH ×2 (10:08→22:33)
--- NOTE | 2016-08-30 11:30 | PN ---
Physical Exam: SUBJECTIVE: Patient seen and examined. He is complaining of sensitivity o light today. He denies leg pain, fever, chills. OBJECTIVE: Vital Signs Period Temp Pulse Resp BP Sys/Gutierrez Pulse Ox Last 24 Hr 97.3 F-97.7 F 73-94 18-20 133-144/71-84 94-96 GENERAL: The patient is awake, alert, and fully oriented, in no acute distress. HEAD: Normal with no signs of trauma. EYES: PERRL, extraocular movements intact, sclera anicteric, conjunctiva clear. No ptosis. ENT: Ears normal, nares patent, oropharynx clear without exudates, moist mucous membranes. NECK: Trachea midline, limited range of motion due to pain, supple. LUNGS: Breath sounds equal, clear to auscultation bilaterally, no wheezes, no crackles, no accessory muscle use. HEART: Regular rate and rhythm, S1, S2 without murmur, rub or gallop. ABDOMEN: Soft, nontender, nondistended, normoactive bowel sounds, no guarding, no rebound, no hepatosplenomegaly, no masses. EXTREMITIES: 1+ pulses, warm, 1+ peripheral edema in LE B/L, RLE: 1 toe amputated, deformities in second and fourth toe, no redness, swelling, edema, LLE: bandage. NEUROLOGICAL:No facial asymmetry. Normal speech, gait not observed. PSYCH: Normal mood, normal affect. SKIN: Warm, dry, normal turgor, no rashes or lesions noted Laboratory Results - last 24 hr 08/28/16 08/29/16 08/29/16 09:15 05:35 12:06 WBC RBC Hgb Hct MCV MCHC RDW Plt Count MPV Neutrophils % Lymphocytes % Monocytes % Eosinophils % Basophils % Hypochromic-Microcytic 2+ Anisocytosis 2+ Microcytosis 2+ Macrocytosis Few Target Cells 2+ Fragmented RBCs Few Sodium Potassium Chloride Carbon Dioxide Anion Gap BUN Creatinine POC Glucometer 112 Random Glucose Calcium Phosphorus Magnesium Blood Type B POSITIVE Antibody Screen Negative Crossmatch See Detail 08/29/16 08/29/16 08/29/16 17:04 17:30 21:22 WBC 11.1 H RBC 3.04 L Hgb 7.5 L D Hct 24.2 L MCV 79.6 L MCHC 31.1 L RDW 25.5 H Plt Count 374 MPV 7.3 L Neutrophils % Lymphocytes % Monocytes % Eosinophils % Basophils % Hypochromic-Microcytic Anisocytosis Microcytosis Macrocytosis Target Cells Fragmented RBCs Sodium Potassium Chloride Carbon Dioxide Anion Gap BUN Creatinine POC Glucometer 90 190 Random Glucose Calcium Phosphorus Magnesium Blood Type Antibody Screen Crossmatch 08/30/16 08/30/16 08/30/16 05:35 05:35 06:08 WBC 11.0 H RBC 3.01 L Hgb 7.6 L Hct 23.7 L MCV 78.7 L MCHC 31.9 L RDW 25.7 H Plt Count 337 MPV 7.3 L Neutrophils % 76.9 Lymphocytes % 12.6 Monocytes % 6.3 Eosinophils % 3.4 Basophils % 0.8 Hypochromic-Microcytic Anisocytosis Microcytosis Macrocytosis Target Cells Fragmented RBCs Sodium 144 Potassium 5.2 H Chloride 113 H Carbon Dioxide 23 Anion Gap 8 BUN 53 H Creatinine 2.4 H POC Glucometer 75 Random Glucose 51 L D Calcium 8.3 L Phosphorus 5.2 H Magnesium 1.9 Blood Type Antibody Screen Crossmatch Active Medications Generic Name Dose Route Start Last Admin Trade Name Freq PRN Reason Stop Dose Admin Albuterol Sulfate 2 puff 08/27/16 18:31 Ventolin Hfa Inhaler - IH Q4H PRN WHEEZING Albuterol/Ipratropium 1 amp 08/29/16 14:00 08/30/16 06:45 Duoneb - NEB Not Given TIDR [facility] Amlodipine Besylate 10 mg 08/28/16 10:00 08/30/16 10:02 Norvasc - PO 10 mg DAILY [facility] Administration Ascorbic Acid 500 mg 08/28/16 10:00 08/30/16 10:02 Vitamin C - PO 500 mg DAILY [facility] Administration Calcium Acetate 1,334 mg 08/28/16 08:00 08/30/16 10:03 Phoslo - PO 1,334 mg TIDCM [facility] Administration Doxazosin Mesylate 4 mg 08/28/16 10:00 08/30/16 10:03 Cardura - PO 4 mg DAILY [facility] Administration Duloxetine HCl 30 mg 08/28/16 10:00 08/30/16 10:02 Cymbalta - PO 30 mg DAILY [facility] Administration Fentanyl 1 patch 08/29/16 12:30 08/29/16 12:56 Duragesic 25mcg Patch - TD 08/30/16 12:21 1 patch Q72H [facility] Administration Ferrous Sulfate 325 mg 08/28/16 10:00 08/30/16 10:02 Feosol - PO 325 mg DAILY [facility] Administration Folic Acid 1 mg 08/28/16 10:00 08/30/16 10:02 Folic Acid - PO 1 mg DAILY [facility] Administration Furosemide 40 mg 08/28/16 10:00 08/30/16 10:03 Lasix - PO 40 mg DAILY [facility] Administration Ampicillin Sodium/Sulbactam 100 mls @ 200 mls/hr 08/28/16 02:00 08/30/16 10:06 Sodium 3 gm/ Sodium Chloride IVPB 200 mls/hr Q8H-IV [facility] Administration Insulin Aspart 1 vial 08/28/16 07:00 08/30/16 06:33 Novolog Vial Sliding Scale - SQ Not Given TIDAC [facility] Protocol Insulin Detemir 20 units 08/27/16 22:00 08/30/16 06:33 Levemir Vial SQ Not Given BID@0700,2200 [facility] Methyl Salicylate 1 applic 08/27/16 22:00 08/30/16 10:08 Sterling-Greer - TP Not Given BID [facility] Metoprolol Tartrate 25 mg 08/27/16 22:00 08/30/16 10:03 Lopressor - PO 25 mg BID [facility] Administration Mirtazapine 30 mg 08/27/16 22:00 08/29/16 22:53 Remeron - PO 30 mg HS [facility] Administration Miscellaneous 1 each 08/27/16 18:31 08/29/16 12:58 Duragesic Patch Waste TD 1 each PRN PRN Administration PAIN Miscellaneous 1 each 08/27/16 18:31 Duragesic Patch Waste [facility] PRN PRN PAIN Oxycodone HCl 10 mg 08/27/16 18:31 08/30/16 00:45 Roxicodone - PO 10 mg Q6H PRN Administration PAIN Pantoprazole Sodium 20 mg 08/28/16 10:00 08/30/16 10:03 Protonix - PO 20 mg DAILY [facility] Administration Pregabalin 100 mg 08/27/16 22:00 08/30/16 10:02 Lyrica - PO 100 mg BID [facility] Administration Sodium Bicarbonate 650 mg 08/28/16 10:00 08/30/16 10:03 Sodium Bicarbonate - PO 650 mg DAILY [facility] Administration Trazodone HCl 300 mg 08/27/16 22:00 08/29/16 22:52 Desyrel - PO 300 mg HS [facility] Administration Zinc Sulfate 220 mg 08/28/16 10:00 08/30/16 10:03 Orazinc - PO 220 mg DAILY [facility] Administration Microbiology 08/27/16 18:50 Foot - Left Dorsum Gram Stain - Final 08/27/16 18:50 Foot - Left Dorsum Wound Culture - Preliminary NO GROWTH OBTAINED AFTER 24 HOURS INCUBATION, REINCUBATED. 08/27/16 18:50 Foot - Left Heel Wound Culture - Preliminary NO GROWTH OBTAINED AFTER 24 HOURS INCUBATION, REINCUBATED. 08/27/16 18:50 Foot - Left Plantar Gram Stain - Final 08/22/16 05:35 Blood - Peripheral Venous Blood Culture - Final NO GROWTH AFTER 5 DAYS INCUBATION 08/22/16 05:30 Blood - Peripheral Venous Blood Culture - Final NO GROWTH AFTER 5 DAYS INCUBATION 08/19/16 22:20 Blood - Peripheral Venous Blood Culture - Final Staphylococcus Epidermidis#2 Staphylococcus Epidermidis Staphylococcus Epidermidis#3 08/21/16 21:20 Foot - Left Instep Gram Stain - Final 08/21/16 21:20 Foot - Left Instep Wound Culture - Final Beta Hem Streptococcus Group G 08/19/16 22:20 Blood - Peripheral Venous Blood Culture - Final Beta Hem Streptococcus Group G Staphylococcus Epidermidis 08/21/16 03:00 Abscess Gram Stain - Final 08/21/16 03:00 Abscess Wound Culture - Final Beta Hem Streptococcus Group G 08/20/16 07:40 Urine - Urine - Catheterized Urine Culture - Final NO GROWTH OBTAINED MRI C-spine: prevertebral, retropharyngeal fluid collection/edema, likely non- infectious in etiology MRI: left Foot + osteomyelitis of left foot, distal tibia, lateral and medial malleolus ASSESSMENT/PLAN: 60 year old male with a significant PMH of HTN, IDDM, PAD with multiple amputations, h/o of osteomyelitis in left foot, diabetic nephropathy presents to ED via EMS after an episode of syncope that occurred at the assisted living facility.The patient reports that he was in elevator when he had LOC. he states that he felt lightheaded before the syncopal episode. He was admitted for syncope/anemia/osteomyelitis. Bacteremia due to LLE abscess: -the pt had abscess that was drained in the operating room, -d/c Vancomycin and Unasyn, started Ceftriaxone 2 g and Flagyl 500 mg -s/p surgical debridement -blood cx positive for Staph coag neg, Staph epidermidis, beta hemolytic Strep G , -blood cultures were repeated: no growth -abscess culture beta hemolytic Strep group G, -wound culture from OR: no growth osteomyelitis: -s/p bone biopsy, culture -MRI done, osteomyeltis of the residual metatarsals, greater and lesser tarsal bones and of the tibia and fibula Watery diarrhea: -diarrhea resolved Prevertebral, retropharyngeal fluid collection, -edema likely of noninfectious etiology -ENT saw the pt , no further treatment recommended Severe Anemia Hypercalcemia Syncope Hyperkalemia Acute on chronic renal failure Hyperphosphatemia IDDM Hypertension Dispo: We will continue to follow the patient. Thank you for this consultative opportunity. Problem List - Problems (1) FROYLAN (acute kidney injury) Code(s): N17.9 - ACUTE KIDNEY FAILURE, UNSPECIFIED (2) Hyperkalemia Code(s): E87.5 - HYPERKALEMIA (3) Severe anemia Code(s): D64.9 - ANEMIA, UNSPECIFIED (4) Throat discomfort Code(s): R07.0 - PAIN IN THROAT (5) Edema of both legs Code(s): R60.0 - LOCALIZED EDEMA (6) S/P amputation Code(s): Z89.9 - ACQUIRED ABSENCE OF LIMB, UNSPECIFIED (7) Hyperglycemia Code(s): R73.9 - HYPERGLYCEMIA, UNSPECIFIED (8) Osteoarthritis Code(s): M19.90 - UNSPECIFIED OSTEOARTHRITIS, UNSPECIFIED SITE (9) Chronic pain Code(s): G89.29 - OTHER CHRONIC PAIN (10) 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 Code(s): E11.9 - TYPE 2 DIABETES MELLITUS WITHOUT COMPLICATIONS (11) Diabetic neuropathy Code(s): E11.40 - TYPE 2 DIABETES MELLITUS WITH DIABETIC NEUROPATHY, UNSP (12) Foot infection Code(s): L08.9 - LOCAL INFECTION OF THE SKIN AND SUBCUTANEOUS TISSUE, UNSP (13) GERD (gastroesophageal reflux disease) Code(s): K21.9 - GASTRO-ESOPHAGEAL REFLUX DISEASE WITHOUT ESOPHAGITIS (14) HTN (hypertension) Code(s): I10 - ESSENTIAL (PRIMARY) HYPERTENSION (15) Osteomyelitis Code(s): M86.9 - OSTEOMYELITIS, UNSPECIFIED Visit type - Emergency Visit Emergency Visit: Yes ED Registration Date: 08/19/16 Care time: The patient presented to the Emergency Department on the above date and was hospitalized for further evaluation of their emergent condition. - New Patient This patient is new to me today: No - Critical Care Critical Care patient: No
--- NOTE | 2016-08-30 12:39 | PN ---
Teaching Attending Note Name of Resident: Sis Barrett ATTENDING PHYSICIAN STATEMENT I saw and evaluated the patient. I reviewed the resident's note and discussed the case with the resident. I agree with the resident's findings and plan as documented. SUBJECTIVE:asymptomatic. denies CP, SOB,fever, chills, pain, N/V/C/D OBJECTIVE: Last Vital Signs Temp Pulse Resp BP Pulse Ox 97.9 F 78 18 153/90 90 L 08/30/16 10:00 08/30/16 10:00 08/30/16 10:00 08/30/16 10:08/30/16 09:00 General NAD CV S1 S2 RRR no murmur/rub/gallop Lungs CTA B/L anteriorly Abdomen soft NT/ND Extremities trace pitting edema B/L LE. L foot wrapped in gauze with some seeping of serosangeous fluid seen on gauze no edema RLE ASSESSMENT AND PLAN: 60yo M with PMH HTH, DM, Peripheral neuropathy, OM of L foot s/p amputation presented to the ER and was admitted for further evaluation of their emergent condition 1. Symptomatic anemia- anemia of chronic disease due to sepsis. s/p 9 units PRBC this admission. received epo yesterday. 2. Sepsis due to L foot OM- s/p bone bx. plan to go to OR tomorrow for debridement and simulans placement. will need to d/w podiatry if any other intervention on this admission. on Unasyn/vanco by level. awiting vanco level today for dosing. Bone bx no growth to date. pain control 3. Hyperkalemia- likely in setting of FROYLAN. persistent. no indication for HD at this time. nephrology on board. give kayexylate 4. Acute on CKD- Cr stable. on bicarb. nephrology on board. 5. hyperphosphatemia- likely due to kidney failure. improved. on phoslo. 6. diabetes- A1c 7.6. controlled. cont levemir BID and iss. diabetic/renal diet 7. HTN- improved. started on metoprolol 8. DVT ppx- SCD
[2016-08-30] MEDS ORDERED: SODIUM POLYSTYRENE SULFONATE 15 GM/60 ML BOTTLE PO ONE (13:00)
--- NOTE | 2016-08-30 13:04 | PN ---
Progress Note (short form) - Note Progress Note: Resting in NAD. Chronic pain in the left LE. No CP or SOB. Intake & Output 08/27/16 08/28/16 08/29/16 08/30/16 23:59 23:59 23:59 23:59 Intake Total 600 940 400 800 Output Total 2200 5556 922 1043 Balance -1600 -1010 -100 -1010 Last Vital Signs Temp Pulse Resp BP Pulse Ox 97.9 F 78 18 153/90 90 L 08/30/16 10:00 08/30/16 10:00 08/30/16 10:00 08/30/16 10:00 08/30/16 09:00 Active Medications Albuterol Sulfate (Ventolin Hfa Inhaler -) 2 puff IH Q4H PRN PRN Reason: WHEEZING Albuterol/Ipratropium (Duoneb -) 1 amp NEB TIDR [facility] Last Admin: 08/30/16 06:45 Dose: Not Given Amlodipine Besylate (Norvasc -) 10 mg PO DAILY [facility] Last Admin: 08/30/16 10:02 Dose: 10 mg Ascorbic Acid (Vitamin C -) 500 mg PO DAILY [facility] Last Admin: 08/30/16 10:02 Dose: 500 mg Calcium Acetate (Phoslo -) 1,334 mg PO TIDCM [facility] Last Admin: 08/30/16 12:34 Dose: 1,334 mg Doxazosin Mesylate (Cardura -) 4 mg PO DAILY [facility] Last Admin: 08/30/16 10:03 Dose: 4 mg Duloxetine HCl (Cymbalta -) 30 mg PO DAILY [facility] Last Admin: 08/30/16 10:02 Dose: 30 mg Ferrous Sulfate (Feosol -) 325 mg PO DAILY [facility] Last Admin: 08/30/16 10:02 Dose: 325 mg Folic Acid (Folic Acid -) 1 mg PO DAILY [facility] Last Admin: 08/30/16 10:02 Dose: 1 mg Furosemide (Lasix -) 40 mg PO DAILY [facility] Last Admin: 08/30/16 10:03 Dose: 40 mg Ampicillin Sodium/Sulbactam (Sodium 3 gm/ Sodium Chloride) 100 mls @ 200 mls/ hr IVPB Q8H-IV [facility] Last Admin: 08/30/16 10:06 Dose: 200 mls/hr Insulin Aspart (Novolog Vial Sliding Scale -) 1 vial SQ TIDAC [facility] PRN Reason: Protocol Last Admin: 08/30/16 11:54 Dose: Not Given Insulin Detemir (Levemir Vial) 20 units SQ BID@0700,2200 [facility] Last Admin: 08/30/16 06:33 Dose: Not Given Methyl Salicylate (Sterling-Greer -) 1 applic TP BID [facility] Last Admin: 08/30/16 10:08 Dose: Not Given Metoprolol Tartrate (Lopressor -) 25 mg PO BID [facility] Last Admin: 08/30/16 10:03 Dose: 25 mg Mirtazapine (Remeron -) 30 mg PO [facility] Last Admin: 08/29/16 22:53 Dose: 30 mg Miscellaneous (Duragesic Patch Waste) 1 each TD PRN PRN PRN Reason: PAIN Last Admin: 08/29/16 12:58 Dose: 1 each Miscellaneous (Duragesic Patch Waste) 1 each [facility] PRN PRN PRN Reason: PAIN Oxycodone HCl (Roxicodone -) 10 mg PO Q6H PRN PRN Reason: PAIN Last Admin: 08/30/16 00:45 Dose: 10 mg Pantoprazole Sodium (Protonix -) 20 mg PO DAILY [facility] Last Admin: 08/30/16 10:03 Dose: 20 mg Pregabalin (Lyrica -) 100 mg PO BID [facility] Last Admin: 08/30/16 10:02 Dose: 100 mg Sodium Bicarbonate (Sodium Bicarbonate -) 650 mg PO DAILY [facility] Last Admin: 08/30/16 10:03 Dose: 650 mg Trazodone HCl (Desyrel -) 300 mg PO [facility] Last Admin: 08/29/16 22:52 Dose: 300 mg Zinc Sulfate (Orazinc -) 220 mg PO DAILY [facility] Last Admin: 08/30/16 10:03 Dose: 220 mg OBJECTIVE: Gen: NAD at rest Heart: RRR Lung: decreased breath sounds at the bases Abd: soft, nontender Ext: + edema, dressing intact Laboratory Results - last 24 hr 08/28/16 08/29/16 08/29/16 09:15 17:04 17:30 WBC 11.1 H RBC 3.04 L Hgb 7.5 L D Hct 24.2 L MCV 79.6 L MCHC 31.1 L RDW 25.5 H Plt Count 374 MPV 7.3 L Neutrophils % Lymphocytes % Monocytes % Eosinophils % Basophils % Sodium Potassium Chloride Carbon Dioxide Anion Gap BUN Creatinine POC Glucometer 90 Random Glucose Calcium Phosphorus Magnesium Random Vancomycin Blood Type B POSITIVE Antibody Screen Negative Crossmatch See Detail 08/29/16 08/30/16 08/30/16 21:22 05:35 05:35 WBC 11.0 H RBC 3.01 L Hgb 7.6 L Hct 23.7 L MCV 78.7 L MCHC 31.9 L RDW 25.7 H Plt Count 337 MPV 7.3 L Neutrophils % 76.9 Lymphocytes % 12.6 Monocytes % 6.3 Eosinophils % 3.4 Basophils % 0.8 Sodium 144 Potassium 5.2 H Chloride 113 H Carbon Dioxide 23 Anion Gap 8 BUN 53 H Creatinine 2.4 H POC Glucometer 190 Random Glucose 51 L D Calcium 8.3 L Phosphorus 5.2 H Magnesium 1.9 Random Vancomycin Blood Type Antibody Screen Crossmatch 08/30/16 08/30/16 08/30/16 06:08 09:50 11:52 WBC RBC Hgb Hct MCV MCHC RDW Plt Count MPV Neutrophils % Lymphocytes % Monocytes % Eosinophils % Basophils % Sodium Potassium Chloride Carbon Dioxide Anion Gap BUN Creatinine POC Glucometer 75 109 Random Glucose Calcium Phosphorus Magnesium Random Vancomycin 12.53 Blood Type Antibody Screen Crossmatch ASSESSMENT AND PLAN: Syncope Anemia Left foot ulcer infection s/p debridement Gram Positive Bacteremia Sepsis Acute on Chronic Renal Failure Hyperkalemia DM (?) Nerve impingement causing symptoms - Local wound care - ABX - Pain control - glucose control - PO as tolerated - OOB to chair - PT/OT Dr Butt
--- NOTE | 2016-08-30 13:21 | PN ---
[id number] because of sepsis prior to biopsy - surprise no growth as of yet but would like reincubation to determine organism in this definitive clear case of osteomyelitis
--- NOTE | 2016-08-30 13:25 | PN ---
Physical Exam: SUBJECTIVE: Patient seen and examined no new complaints, s/p 1UPRBC yesterday with adequate rise in heme/hct. Breathing improved. Denies chest pain, sob, fever, chills. OBJECTIVE: Vital Signs Period Temp Pulse Resp BP Sys/Gutierrez Pulse Ox Last 24 Hr 97.3 F-97.9 F 73-94 18-20 133-153/71-90 90-96 GENERAL: The patient is awake, alert, and fully oriented, in no acute distress. HEAD: Normal with no signs of trauma. LUNGS: scattered rhonchi , improved from yesterda HEART: Regular rate and rhythm, S1, S2 without murmur, rub or gallop. ABDOMEN: Soft, nontender, nondistended, normoactive bowel sounds, no guarding, no rebound, no hepatosplenomegaly, no masses. EXTREMITIES: 2+ pulses, warm, well-perfused, no edema. LLE foot stump , some skin sloughing off, no drainage, no sensation at bottom o foot NEUROLOGICAL: Cranial nerves II through XII grossly intact. Normal speech, gait not observed. PSYCH: Normal mood, normal affect. SKIN: Warm, dry, normal turgor, no rashes or lesions noted Laboratory Results - last 24 hr 08/28/16 08/29/16 08/29/16 09:15 17:04 17:30 WBC 11.1 H RBC 3.04 L Hgb 7.5 L D Hct 24.2 L MCV 79.6 L MCHC 31.1 L RDW 25.5 H Plt Count 374 MPV 7.3 L Neutrophils % Lymphocytes % Monocytes % Eosinophils % Basophils % Sodium Potassium Chloride Carbon Dioxide Anion Gap BUN Creatinine POC Glucometer 90 Random Glucose Calcium Phosphorus Magnesium Random Vancomycin Blood Type B POSITIVE Antibody Screen Negative Crossmatch See Detail 08/29/16 08/30/16 08/30/16 21:22 05:35 05:35 WBC 11.0 H RBC 3.01 L Hgb 7.6 L Hct 23.7 L MCV 78.7 L MCHC 31.9 L RDW 25.7 H Plt Count 337 MPV 7.3 L Neutrophils % 76.9 Lymphocytes % 12.6 Monocytes % 6.3 Eosinophils % 3.4 Basophils % 0.8 Sodium 144 Potassium 5.2 H Chloride 113 H Carbon Dioxide 23 Anion Gap 8 BUN 53 H Creatinine 2.4 H POC Glucometer 190 Random Glucose 51 L D Calcium 8.3 L Phosphorus 5.2 H Magnesium 1.9 Random Vancomycin Blood Type Antibody Screen Crossmatch 08/30/16 08/30/16 08/30/16 06:08 09:50 11:52 WBC RBC Hgb Hct MCV MCHC RDW Plt Count MPV Neutrophils % Lymphocytes % Monocytes % Eosinophils % Basophils % Sodium Potassium Chloride Carbon Dioxide Anion Gap BUN Creatinine POC Glucometer 75 109 Random Glucose Calcium Phosphorus Magnesium Random Vancomycin 12.53 Blood Type Antibody Screen Crossmatch Active Medications Generic Name Dose Route Start Last Admin Trade Name Freq PRN Reason Stop Dose Admin Albuterol Sulfate 2 puff 08/27/16 18:31 Ventolin Hfa Inhaler - IH Q4H PRN WHEEZING Albuterol/Ipratropium 1 amp 08/29/16 14:00 08/30/16 06:45 Duoneb - NEB Not Given TIDR IGGY Amlodipine Besylate 10 mg 08/28/16 10:00 08/30/16 10:02 Norvasc - PO 10 mg DAILY IGGY Administration Ascorbic Acid 500 mg 08/28/16 10:00 08/30/16 10:02 Vitamin C - PO 500 mg DAILY IGGY Administration Calcium Acetate 1,334 mg 08/28/16 08:00 08/30/16 12:34 Phoslo - PO 1,334 mg TIDCM IGGY Administration Doxazosin Mesylate 4 mg 08/28/16 10:00 08/30/16 10:03 Cardura - PO 4 mg DAILY IGGY Administration Duloxetine HCl 30 mg 08/28/16 10:00 08/30/16 10:02 Cymbalta - PO 30 mg DAILY IGGY Administration Ferrous Sulfate 325 mg 08/28/16 10:00 08/30/16 10:02 Feosol - PO 325 mg DAILY IGGY Administration Folic Acid 1 mg 08/28/16 10:00 08/30/16 10:02 Folic Acid - PO 1 mg DAILY IGGY Administration Furosemide 40 mg 08/28/16 10:00 08/30/16 10:03 Lasix - PO 40 mg DAILY IGGY Administration Ampicillin Sodium/Sulbactam 100 mls @ 200 mls/hr 08/28/16 02:00 08/30/16 10:06 Sodium 3 gm/ Sodium Chloride IVPB 200 mls/hr Q8H-IV IGGY Administration Insulin Aspart 1 vial 08/28/16 07:00 08/30/16 11:54 Novolog Vial Sliding Scale - SQ Not Given [facility]IDAC [facility] Protocol Insulin Detemir 20 units 08/27/16 22:00 08/30/16 06:33 Levemir Vial SQ Not Given BID@0700,2200 [facility] Methyl Salicylate 1 applic 08/27/16 22:00 08/30/16 10:08 Sterling-Greer - TP Not Given BID [facility] Metoprolol Tartrate 25 mg 08/27/16 22:00 08/30/16 10:03 Lopressor - PO 25 mg BID IGGY Administration Mirtazapine 30 mg 08/27/16 22:00 08/29/16 22:53 Remeron - PO 30 mg HS IGGY Administration Miscellaneous 1 each 08/27/16 18:31 08/29/16 12:58 Duragesic Patch Waste TD 1 each PRN PRN Administration PAIN Miscellaneous 1 each 08/27/16 18:31 Duragesic Patch Waste MC PRN PRN PAIN Oxycodone HCl 10 mg 08/27/16 18:31 08/30/16 00:45 Roxicodone - PO 10 mg Q6H PRN Administration PAIN Pantoprazole Sodium 20 mg 08/28/16 10:00 08/30/16 10:03 Protonix - PO 20 mg DAILY IGGY Administration Pregabalin 100 mg 08/27/16 22:00 08/30/16 10:02 Lyrica - PO 100 mg BID IGGY Administration Sodium Bicarbonate 650 mg 08/28/16 10:00 08/30/16 10:03 Sodium Bicarbonate - PO 650 mg DAILY IGGY Administration Trazodone HCl 300 mg 08/27/16 22:00 08/29/16 22:52 Desyrel - PO 300 mg HS IGGY Administration Zinc Sulfate 220 mg 08/28/16 10:00 08/30/16 10:03 Orazinc - PO 220 mg DAILY IGGY Administration Head, Facial Bones, Cervical Spine CT: no intracranial/extracranial bleeding, no edema, no mass, no evidence of ischemia, + R supraorbital soft tissue swelling with laceration, no facial or spinal Fx MRI C-spine: prevertebral, retropharyngeal fluid collection/edema, likely non- infectious in etiology CXR: no acute pathology Echo: mild LVH ; LV mildy dilated ; preserved LVSF; no regional wall motin abnormalities; Mild to mod MR; Mod TR: RVSP 30-40mmhg; mild pulmonary hypertention; left and right atria mod dilated; mild aortic root dilation; small pericardial effusion <1cmMRI: left Foot + osteomyelitis of left foot, distal tibia, lateral and medial malleolus ASSESSMENT/PLAN: Pt is a 60 yo M with PMHx of DM, HTN, diabetic neuropathy with left foot amputation, and CKD who presents to the ED s/p syncopal episode from standing position with +LOC and +head trauma. Pt was found to have a Hgb of 3.7 and WBC of 26.1 upon presentation. #Syncopal episode sec to Acute on chronic anemia secondary to acute infection from osteomyelitits -total 10U PRBC transfused since admission; another yesterday due to heme 6.8; adequate rise in H/H, inc to 7.5 -keep hemoglobin >7 -Hx of colonoscopy in December of 2015 with subsequent Bx of colonic polyps negative. Pt reports nml EGD done around the same time. Both performed by Dr. Etienne; no need for another colonoscopy at this time -low serum iron; low TIBC, low iron saturation, high ferritin in setting of acute infection -hemo/onc consulted #sepsis secondary to osteomyelitis: s/p debridement 08/27 and going to OR tommorrow -afebrile, vitals stable, white count trending down -daily dose vancomycin; Unasyn day 5; -wound culutre 08/27 -left dorsum: +beta hemolytic strep Group G -left heel: negative -left plantar negative -MRI +osteomyelitis; -old sensitivities noted from previous infection -Dr Galvan ; plan to I&D on Saturday; with bone glue therapy; if treatment fail, will proceed with transtibial amputation #hypertension: -metoprolol 25mg bid -norsvac 10mg -diovan held due to FROYLAN #Acute on chronic renal failure: slight decline -cr 2.4 today from 2.3 yest -Renal US showing bilateral echogenic kidneys: this relates to chronic kidney disease -Renal consulted #photophobia: improved -orbital CT negative -optho consult #Hyperkalemia; 5.2 -Medically treated with Ca gluconate, Insulin/D50, and kaexylate on 08/27 -Continue to trend -maintain low K diet #hyperphosphatemia: 5.2 -phoslo with meals tid #Retropharyngeal/prevertebral edema on MRI -MRI does not correlate to active infection -ENT consulted, does not feel this is an abscess; no intervention from him at this time # L LE swelling; resolved -Duplex US negative for DVT # Diabetes: controlled -levemir increased to 22 U bid -insulin ss -BGM #Tobacco use: -6 cigs per day -scattered rhonci on exam yesterday; improved with duoneb treatment; -f/u pulmonary function testing as outpatient FEN: Fluids: po Electrolytes:trend Diet: diabetic diet, low K low phos DVT ppx: scds Disposition: I and D Saturday; cont IV antibiotics Visit type - Emergency Visit Emergency Visit: Yes ED Registration Date: 08/19/16 Care time: The patient presented to the Emergency Department on the above date and was hospitalized for further evaluation of their emergent condition. - New Patient This patient is new to me today: No - Critical Care Critical Care patient: No
--- NOTE | 2016-08-30 15:02 | PN ---
Progress Note (short form) - Note Progress Note: awake and alert please see residents not for full details s/p bone biopsy 08/27 Vital Signs Period Temp Pulse Resp BP Sys/Gutierrez Pulse Ox Last 24 Hr 97.3 F-97.9 F 76-94 18-20 133-153/71-90 90-94 cor-rrr lungs clear abd soft,nt ext foot bandaged CBC, BMP 08/30/16 05:35 08/30/16 05:35 Microbiology 08/27/16 18:50 Foot - Left Dorsum Gram Stain - Final 08/27/16 18:50 Foot - Left Dorsum Wound Culture - Preliminary Beta Hem Streptococcus Group G 08/27/16 18:50 Foot - Left Plantar Gram Stain - Final 08/27/16 18:50 Foot - Left Plantar Wound Culture - Preliminary 08/27/16 18:50 Foot - Left Heel Wound Culture - Final NO GROWTH OF AEROBIC ORGANISMS AFTER 48 HOURS INCUBATION 08/22/16 05:35 Blood - Peripheral Venous Blood Culture - Final NO GROWTH AFTER 5 DAYS INCUBATION 08/22/16 05:30 Blood - Peripheral Venous Blood Culture - Final NO GROWTH AFTER 5 DAYS INCUBATION 08/19/16 22:20 Blood - Peripheral Venous Blood Culture - Final Staphylococcus Epidermidis#2 Staphylococcus Epidermidis Staphylococcus Epidermidis#3 08/21/16 21:20 Foot - Left Instep Gram Stain - Final 08/21/16 21:20 Foot - Left Instep Wound Culture - Final Beta Hem Streptococcus Group G 08/19/16 22:20 Blood - Peripheral Venous Blood Culture - Final Beta Hem Streptococcus Group G Staphylococcus Epidermidis 08/21/16 03:00 Abscess Gram Stain - Final 08/21/16 03:00 Abscess Wound Culture - Final Beta Hem Streptococcus Group G 08/20/16 07:40 Urine - Urine - Catheterized Urine Culture - Final NO GROWTH OBTAINED Current Medications Albuterol Sulfate (Ventolin Hfa Inhaler -) 2 puff IH Q4H PRN PRN Reason: WHEEZING Albuterol/Ipratropium (Duoneb -) 1 amp NEB TIDR [facility] Last Admin: 08/30/16 14:15 Dose: 1 amp Amlodipine Besylate (Norvasc -) 10 mg PO DAILY [facility] Last Admin: 08/30/16 10:02 Dose: 10 mg Ascorbic Acid (Vitamin C -) 500 mg PO DAILY [facility] Last Admin: 08/30/16 10:02 Dose: 500 mg Calcium Acetate (Phoslo -) 1,334 mg PO TIDCM [facility] Last Admin: 08/30/16 12:34 Dose: 1,334 mg Doxazosin Mesylate (Cardura -) 4 mg PO DAILY [facility] Last Admin: 08/30/16 10:03 Dose: 4 mg Duloxetine HCl (Cymbalta -) 30 mg PO DAILY [facility] Last Admin: 08/30/16 10:02 Dose: 30 mg Ferrous Sulfate (Feosol -) 325 mg PO DAILY [facility] Last Admin: 08/30/16 10:02 Dose: 325 mg Folic Acid (Folic Acid -) 1 mg PO DAILY [facility] Last Admin: 08/30/16 10:02 Dose: 1 mg Furosemide (Lasix -) 40 mg PO DAILY [facility] Last Admin: 08/30/16 10:03 Dose: 40 mg Ampicillin Sodium/Sulbactam (Sodium 3 gm/ Sodium Chloride) 100 mls @ 200 mls/ hr IVPB Q8H-IV [facility] Last Admin: 08/30/16 10:06 Dose: 200 mls/hr Insulin Aspart (Novolog Vial Sliding Scale -) 1 vial SQ TIDAC [facility] PRN Reason: Protocol Last Admin: 08/30/16 11:54 Dose: Not Given Insulin Detemir (Levemir Vial) 20 units SQ BID@0700,2200 [facility] Last Admin: 08/30/16 06:33 Dose: Not Given Methyl Salicylate (Sterling-Greer -) 1 applic TP BID [facility] Last Admin: 08/30/16 10:08 Dose: Not Given Metoprolol Tartrate (Lopressor -) 25 mg PO BID [facility] Last Admin: 08/30/16 10:03 Dose: 25 mg Mirtazapine (Remeron -) 30 mg PO HS [facility] Last Admin: 08/29/16 22:53 Dose: 30 mg Miscellaneous (Duragesic Patch Waste) 1 each TD PRN PRN PRN Reason: PAIN Last Admin: 08/29/16 12:58 Dose: 1 each Miscellaneous (Duragesic Patch Waste) 1 each MC PRN PRN PRN Reason: PAIN Oxycodone HCl (Roxicodone -) 10 mg PO Q6H PRN PRN Reason: PAIN Last Admin: 08/30/16 00:45 Dose: 10 mg Pantoprazole Sodium (Protonix -) 20 mg PO DAILY [facility] Last Admin: 08/30/16 10:03 Dose: 20 mg Pregabalin (Lyrica -) 100 mg PO BID [facility] Last Admin: 08/30/16 10:02 Dose: 100 mg Sodium Bicarbonate (Sodium Bicarbonate -) 650 mg PO DAILY [facility] Last Admin: 08/30/16 10:03 Dose: 650 mg Trazodone HCl (Desyrel -) 300 mg PO HS [facility] Last Admin: 08/29/16 22:52 Dose: 300 mg Zinc Sulfate (Orazinc -) 220 mg PO DAILY [facility] Last Admin: 08/30/16 10:03 Dose: 220 mg TTE no vegetation a/p bacteremia- group G strep/staph epi foot abscess s/p debridement Osteomyelitis s/p bone biopsy- group G strep is the pathogen, anemia feli/ckd diabetes d/c vancomycin s/p 10 days for transient bacteremia for debridement, if cultures do not change plan ceftriaxone 2 grams daily and po flagyl 500 tid for total 6 weeks f/u cultures
[2016-08-30] MEDS ORDERED: SODIUM POLYSTYRENE SULFONATE 15 GM/60 ML BOTTLE ONE (15:43)
--- NOTE | 2016-08-30 16:22 | PN ---
Progress Note, Physician Chief Complaint: The patient lying in bed. No new complaints. Not ambulating. Still bloody drainage from the foot wound. For debridement tomorrow. No chest pain. No shortness of breath. Maintains good urine output. - Current Medication List Current Medications: Active Medications Albuterol Sulfate (Ventolin Hfa Inhaler -) 2 puff IH Q4H PRN PRN Reason: WHEEZING Albuterol/Ipratropium (Duoneb -) 1 amp NEB TIDR [facility] Last Admin: 08/30/16 14:15 Dose: 1 amp Amlodipine Besylate (Norvasc -) 10 mg PO DAILY [facility] Last Admin: 08/30/16 10:02 Dose: 10 mg Ascorbic Acid (Vitamin C -) 500 mg PO DAILY [facility] Last Admin: 08/30/16 10:02 Dose: 500 mg Calcium Acetate (Phoslo -) 1,334 mg PO TIDCM [facility] Last Admin: 08/30/16 12:34 Dose: 1,334 mg Ceftriaxone Sodium (Rocephin 2gm Ivpb (Pre-Docked)) 2 gm IVPB DAILY [facility] PRN Reason: Protocol Doxazosin Mesylate (Cardura -) 4 mg PO DAILY [facility] Last Admin: 08/30/16 10:03 Dose: 4 mg Duloxetine HCl (Cymbalta -) 30 mg PO DAILY [facility] Last Admin: 08/30/16 10:02 Dose: 30 mg Ferrous Sulfate (Feosol -) 325 mg PO DAILY [facility] Last Admin: 08/30/16 10:02 Dose: 325 mg Folic Acid (Folic Acid -) 1 mg PO DAILY [facility] Last Admin: 08/30/16 10:02 Dose: 1 mg Furosemide (Lasix -) 40 mg PO DAILY [facility] Last Admin: 08/30/16 10:03 Dose: 40 mg Metronidazole (Flagyl 500mg Premixed Ivpb -) 100 mls @ 100 mls/hr IVPB Q8H-IV [facility] Insulin Aspart (Novolog Vial Sliding Scale -) 1 vial SQ TIDAC [facility] PRN Reason: Protocol Last Admin: 08/30/16 11:54 Dose: Not Given Insulin Detemir (Levemir Vial) 20 units SQ BID@0700,2200 [facility] Last Admin: 08/30/16 06:33 Dose: Not Given Methyl Salicylate (Sterling-Greer -) 1 applic TP BID [facility] Last Admin: 08/30/16 10:08 Dose: Not Given Metoprolol Tartrate (Lopressor -) 25 mg PO BID [facility] Last Admin: 08/30/16 10:03 Dose: 25 mg Mirtazapine (Remeron -) 30 mg PO HS [facility] Last Admin: 08/29/16 22:53 Dose: 30 mg Miscellaneous (Duragesic Patch Waste) 1 each TD PRN PRN PRN Reason: PAIN Last Admin: 08/29/16 12:58 Dose: 1 each Miscellaneous (Duragesic Patch Waste) 1 each [facility] PRN PRN PRN Reason: PAIN Oxycodone HCl (Roxicodone -) 10 mg PO Q6H PRN PRN Reason: PAIN Last Admin: 08/30/16 00:45 Dose: 10 mg Pantoprazole Sodium (Protonix -) 20 mg PO DAILY [facility] Last Admin: 08/30/16 10:03 Dose: 20 mg Pregabalin (Lyrica -) 100 mg PO BID [facility] Last Admin: 08/30/16 10:02 Dose: 100 mg Sodium Bicarbonate (Sodium Bicarbonate -) 650 mg PO DAILY [facility] Last Admin: 08/30/16 10:03 Dose: 650 mg Trazodone HCl (Desyrel -) 300 mg PO [facility] Last Admin: 08/29/16 22:52 Dose: 300 mg Zinc Sulfate (Orazinc -) 220 mg PO DAILY [facility] Last Admin: 08/30/16 10:03 Dose: 220 mg - Objective Vital Signs: Vital Signs Temperature 97.8 F 08/30/16 15:55 Pulse Rate 74 08/30/16 15:55 Respiratory Rate 18 08/30/16 15:55 Blood Pressure 148/89 08/30/16 15:55 O2 Sat by Pulse Oximetry (%) 90 L 08/30/16 09:00 Constitutional: Yes: Well Nourished, Calm Eyes: Yes: WNL HENT: Yes: Atraumatic Neck: Yes: WNL, Supple Cardiovascular: Yes: Regular Rate and Rhythm, S1, S2 Respiratory: Yes: Regular, CTA Bilaterally, Diminished Gastrointestinal: Yes: Normal Bowel Sounds, Soft, Abdomen, Obese Extremities: Yes: Other (Right foot ulcer) Wound/Incision: Yes: Draining Neurological: Yes: Alert, Oriented Psychiatric: Yes: Alert, Oriented Labs: CBC, BMP 08/30/16 05:35 08/30/16 05:35 INR, PTT INR 1.26 (0.82-1.09) H 08/22/16 08:40 Fibrinogen 355.0 mg/dL (238-498) 08/20/16 17:10 Problem List - Problems (1) FROYLAN (acute kidney injury) Code(s): N17.9 - ACUTE KIDNEY FAILURE, UNSPECIFIED (2) Hyperkalemia Code(s): E87.5 - HYPERKALEMIA (3) Severe anemia Code(s): D64.9 - ANEMIA, UNSPECIFIED (4) S/P amputation Code(s): Z89.9 - ACQUIRED ABSENCE OF LIMB, UNSPECIFIED (5) Hyperglycemia Code(s): R73.9 - HYPERGLYCEMIA, UNSPECIFIED (6) Osteoarthritis Code(s): M19.90 - UNSPECIFIED OSTEOARTHRITIS, UNSPECIFIED SITE (7) 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 Code(s): E11.9 - TYPE 2 DIABETES MELLITUS WITHOUT COMPLICATIONS (8) Diabetic neuropathy Code(s): E11.40 - TYPE 2 DIABETES MELLITUS WITH DIABETIC NEUROPATHY, UNSP (9) Foot infection Code(s): L08.9 - LOCAL INFECTION OF THE SKIN AND SUBCUTANEOUS TISSUE, UNSP (10) HTN (hypertension) Code(s): I10 - ESSENTIAL (PRIMARY) HYPERTENSION Assessment/Plan Patient with 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, Peripheral Vascular disease, foot ulcers, with bloody drainage, profound intractable anemia. Hyperkalemia, mild. Received Kayexelate. Refractory anemia, in spite of several transfusions. The Renal functions are stable. Will monitor the Renal functions. Will follow with you. Aniyah Chaudhry MD
[2016-08-30] MEDS: cefTRIAXone 2 GM/100 ML BAG (PRE-DOCKED) IVPB SCH (16:38)
[2016-08-30] MEDS: METRONIDAZOLE 500 MG PREMIXED 100 ML IVPB SCH (18:33)
[2016-08-30] MEDS ORDERED: traZODone HCL 50 MG TABLET (FP) ONE (22:17)
[2016-08-30] MEDS: MIRTAZAPINE 15 MG TABLET (FP) PO SCH (22:21)
[2016-08-30] MEDS: traZODone HCL 100 MG TABLET (FP) PO SCH (22:22)
[2016-08-31] MEDS: METRONIDAZOLE 500 MG PREMIXED 100 ML IVPB SCH ×3 (01:21→17:46)
[2016-08-31] MEDS: ALBUTEROL SO4 2.5/IPRATROPIUM 0.5 INH SOL 3 ML VIAL.NEB. NEB SCH ×2 (06:30→22:20)
[2016-08-31] MEDS: INSULIN SLIDING SCALE (NOVOLOG) 1 VIAL SQ SCH ×3 (06:44→18:40)
[2016-08-31] MEDS: INSULIN DETEMIR 100 UNITS/ML MDV SQ SCH ×2 (06:44→23:11)
[2016-08-31] MEDS ORDERED: VANCOMYCIN 1,000 MG VIAL (RESTRICTED TO ID ONLY) ONE (07:15)
[2016-08-31 07:31] LABS: BASOPHIL 0.7 % (0-2.0); EOSINOPHIL 1.3 % (0-4.5); MCH 24.9 pg (25.7-33.7); MCHC 31.9 g/dl (32.0-35.9); MEAN PLT VOLUME 7.7 fl (7.5-11.1); NEUTROPHILS 85.8 % (42.8-82.8); PLATELET COUNT 365 K/MM3 (134-434); RDW 26.6 % (11.9-15.9); WHITE BLOOD COUNT 13.4 K/mm3 (4.0-10.0)
[2016-08-31 07:55] LABS: ALBUMIN 1.9 g/dl (3.4-5.0); BILIRUBIN,TOTAL 0.3 mg/dL (0.2-1.0); CALCIUM 8.2 mg/dL (8.5-10.1); COCKROFT - GAULT 45.14; CREATININE 2.4 mg/dL (0.7-1.3); PHOSPHOROUS 5.2 mg/dL (2.5-4.9); TOT PROT 7.8 g/dl (6.4-8.2)
[2016-08-31] MEDS ORDERED: MIDAZOLAM HCL 2 MG/2 ML SINGLE DOSE VIAL ONE (07:55)
[2016-08-31] MEDS ORDERED: LIDOCAINE 1%/EPI 1:100000 (50 ML MULTI DOSE VIAL) ONE (08:18)
[2016-08-31] MEDS: CALCIUM ACETATE 667 MG CAPSULE (FP) PO SCH ×3 (08:29→17:46)
[2016-08-31] MEDS ORDERED: ACETAMINOPHEN 1000 MG/100 ML VIAL (NON FORMULARY) IVPB ONE (08:30)
[2016-08-31] MEDS ORDERED: LIDOCAINE 1%/EPI 1:100000 (50 ML MULTI DOSE VIAL) INF ONE ×2 (08:36)
[2016-08-31] MEDS ORDERED: GENTAMICIN SO4 80 MG/2 ML VIAL ONE (08:47)
[2016-08-31] MEDS ORDERED: KETOROLAC TROMETHAMINE 30 MG/1 ML VIAL ONE (08:59)
[2016-08-31] MEDS ORDERED: morphine CARPU-JECT 2 MG/1 ML DISP.SYRIN IVPUSH PRN (09:49)
[2016-08-31] MEDS ORDERED: ONDANSETRON 4 MG/2 ML VIAL IVPUSH PRN (09:49)
--- NOTE | 2016-08-31 09:50 | OP ---
Operative Note - Note: Operative Date: 08/31/16 (Assisted by resident Dr. Solo Brewster) Pre-Operative Diagnosis: Profound DFU with ulceration Operation: Debridement/Diaphysectomy greater tarsus. Application of [facility] Wound VAC Findings: Profound osseous necrosis Post-Operative Diagnosis: Same as Pre-op Surgeon: Aroldo Galvan (asst Dr. Stout) Anesthesia: Local Specimens Removed: Necrotic tissue and bone Estimated Blood Loss (mls): 100 Instrument used (Debridements only): curette, rongeur Drains & Tubes with Location: [facility] Wound VAC Operative Report Dictated: Yes
[2016-08-31] MEDS ORDERED: FENTANYL PATCH WASTE TD PRN (10:24)
[2016-08-31] MEDS ORDERED: ALBUTEROL SO4 6.7 GM HFA INHALER IH PRN (10:24)
[2016-08-31] MEDS ORDERED: FENTANYL PATCH WASTE MC PRN (10:24)
[2016-08-31] MEDS ORDERED: INSULIN (NOVOLOG) ASPART 100 UNITS/ML 10ML VIAL ONE (11:21)
--- NOTE | 2016-08-31 11:41 | PN ---
Physical Exam: SUBJECTIVE: Patient seen and examined by me at bedside. No overnight events noted. Patient is to go for debridement of left lower extremity today by Dr. Galvan. Hemoglobin remains >7.0 with no PRBC's given today. Otherwise, patient denies fever, chills, nausea, vomiting, diarrhea. OBJECTIVE: Vital Signs Period Temp Pulse Resp BP Sys/Gutierrez Pulse Ox Last 24 Hr 97.7 F-98.3 F 74-83 16-20 114-172/82-98 92-93 GENERAL: The patient is awake, alert, and fully oriented, in no acute distress. LUNGS: Scattered Rhonchi thoughout lung bases bilaterally HEART: Regular rate and rhythm, S1, S2 without murmur, rub or gallop. ABDOMEN: Soft, nontender, nondistended, normoactive bowel sounds, no guarding, no rebound tenderness EXTREMITIES: Bilateral trace pitting edema in bilateral lower extremities. Left metatarsal amputation with gauze wrapped around foot with serosanguinous drainage. Laboratory Results - last 24 hr 08/28/16 08/30/16 08/30/16 09:15 09:50 11:52 WBC RBC Hgb Hct MCV MCHC RDW Plt Count MPV Neutrophils % Lymphocytes % Monocytes % Eosinophils % Basophils % Sodium Potassium Chloride Carbon Dioxide Anion Gap BUN Creatinine Creat Clearance w eGFR POC Glucometer 109 Random Glucose Calcium Phosphorus Total Bilirubin AST ALT Alkaline Phosphatase Total Protein Albumin Random Vancomycin 12.53 Blood Type B POSITIVE Antibody Screen Negative Crossmatch See Detail 08/30/16 08/30/16 08/31/16 16:32 20:54 05:40 WBC 13.4 H RBC 2.94 L Hgb 7.3 L Hct 22.9 L MCV 78.0 L MCHC 31.9 L RDW 26.6 H Plt Count 365 MPV 7.7 Neutrophils % 85.8 H Lymphocytes % 6.9 L D Monocytes % 5.3 Eosinophils % 1.3 Basophils % 0.7 Sodium Potassium Chloride Carbon Dioxide Anion Gap BUN Creatinine Creat Clearance w eGFR POC Glucometer 141 188 Random Glucose Calcium Phosphorus Total Bilirubin AST ALT Alkaline Phosphatase Total Protein Albumin Random Vancomycin Blood Type Antibody Screen Crossmatch 08/31/16 08/31/16 08/31/16 05:40 06:11 06:12 WBC RBC Hgb Hct MCV MCHC RDW Plt Count MPV Neutrophils % Lymphocytes % Monocytes % Eosinophils % Basophils % Sodium 141 Potassium 5.8 H Chloride 111 H Carbon Dioxide 23 Anion Gap 7 L BUN 59 H Creatinine 2.4 H Creat Clearance w eGFR 27.75 POC Glucometer 275 268 Random Glucose 242 H D Calcium 8.2 L Phosphorus 5.2 H Total Bilirubin 0.3 AST 22 ALT 31 D Alkaline Phosphatase 144 H Total Protein 7.8 Albumin 1.9 L Random Vancomycin Blood Type Antibody Screen Crossmatch 08/31/16 10:45 WBC RBC Hgb Hct MCV MCHC RDW Plt Count MPV Neutrophils % Lymphocytes % Monocytes % Eosinophils % Basophils % Sodium Potassium Chloride Carbon Dioxide Anion Gap BUN Creatinine Creat Clearance w eGFR POC Glucometer 243 Random Glucose Calcium Phosphorus Total Bilirubin AST ALT Alkaline Phosphatase Total Protein Albumin Random Vancomycin Blood Type Antibody Screen Crossmatch Active Medications Generic Name Dose Route Start Last Admin Trade Name Freq PRN Reason Stop Dose Admin Albuterol Sulfate 2 puff 08/31/16 10:24 Ventolin Hfa Inhaler - IH Q4H PRN WHEEZING Albuterol/Ipratropium 1 amp 08/31/16 14:00 Duoneb - NEB TIDR IGGY Amlodipine Besylate 10 mg 09/01/16 10:00 Norvasc - PO DAILY IGGY Ascorbic Acid 500 mg 09/01/16 10:00 Vitamin C - PO DAILY [facility] Calcium Acetate 1,334 mg 08/31/16 12:00 08/31/16 11:30 Phoslo - PO 1,334 mg TIDCM IGGY Administration Ceftriaxone Sodium 2 gm 09/01/16 10:00 Rocephin 2gm Ivpb (Pre-Docked) IVPB DAILY IGGY Protocol Doxazosin Mesylate 4 mg 09/01/16 10:00 Cardura - PO DAILY [facility] Duloxetine HCl 30 mg 09/01/16 10:00 Cymbalta - PO DAILY [facility] Ferrous Sulfate 325 mg 09/01/16 10:00 Feosol - PO DAILY [facility] Folic Acid 1 mg 09/01/16 10:00 Folic Acid - PO DAILY [facility] Furosemide 40 mg 09/01/16 10:00 Lasix - PO DAILY [facility] Metronidazole 100 mls @ 100 mls/hr 08/31/16 18:00 Flagyl 500mg Premixed Ivpb - IVPB Q8H-IV IGGY Insulin Aspart 1 vial 08/31/16 11:00 08/31/16 11:30 Novolog Vial Sliding Scale - SQ 4 unit TIDAC IGGY Administration Protocol Insulin Detemir 20 units 08/31/16 22:00 Levemir Vial SQ BID@0700,2200 [facility] Methyl Salicylate 1 applic 08/31/16 22:00 Sterling-Greer - TP BID [facility] Metoprolol Tartrate 25 mg 08/31/16 22:00 Lopressor - PO BID IGGY Mirtazapine 30 mg 08/31/16 22:00 Remeron - PO HS [facility] Miscellaneous 1 each 08/31/16 10:24 Duragesic Patch Waste TD PRN PRN PAIN Morphine Sulfate 2 mg 08/31/16 09:49 Morphine Injection - IVPUSH 09/03/16 09:50 [id number] PRN PAIN Ondansetron HCl 4 mg 08/31/16 09:49 Zofran Injection IVPUSH 08/31/16 15:50 Q6H PRN NAUSEA AND/OR VOMITING Oxycodone HCl 10 mg 08/31/16 10:24 Roxicodone - PO Q6H PRN PAIN Pantoprazole Sodium 20 mg 09/01/16 10:00 Protonix - PO DAILY [facility] Pregabalin 100 mg 08/31/16 22:00 Lyrica - PO BID [facility] Sodium Bicarbonate 650 mg 09/01/16 10:00 Sodium Bicarbonate - PO DAILY [facility] Trazodone HCl 300 mg 08/31/16 22:00 Desyrel - PO HS [facility] Zinc Sulfate 220 mg 09/01/16 10:00 Orazinc - PO DAILY [facility] ASSESSMENT/PLAN: Patient is a 60 year old male with a PMHx of DM with nephropathy and neuropathy s/p left metatarsal amputation, HTN, CKD who presented after a syncopal episode with loss of consciousness and head trauma. Patient was found to have a hemoglobin of 3.7 and WBC of 26.1. Patient admitted for further monitoring and management. Patient was transfused with a total of 10 PRBC since admission and had two debridements of the left foot. Patient is to have Wound VAC and PICC line placed. Syncope secondary to Acute on Chronic Anemia -Total of 10 PRBC's transfused since admission. -Hemoglobin and hematocrit today 7.3/22.9 -Transfuse PRBC if hemoglobin falls below 7.0 -Continue to monitor daily CBC -No colonoscopy or EGD as per GI -Heme/Onc consult appreciated. Sepsis Secondary to Osteomyelitis- improving -MRI revealed osteomyelitis of left lower extremity -Afebrile -S/P debridement 08/27/16 and today 08/31/16 -Continue Ceftriaxone 2gm daily day #3 and Flagyl 500mg Q8H day #3 -Wound cultures growing beta hemolytic strep group G -Continue to trend CBC ans ESR -Spoke to Dr. Galvan and patient will need wound VAC and PICC line Acute on chronic renal failure: -Creatinine 2.4 today -Renal US showing bilateral echogenic kidneys: this relates to chronic kidney disease -Renal consulted HTN -Continue Metoprolol 25mg BID -Norsvac 10mg dailyy -Diovan held due to FROYLAN Hyperkalemia -Today 5.8 -Kaexylate 15mg given -Continue to trend -maintain low K diet Hyperphosphatemia -5.2 today -Phoslo with meals TID DM II -Levemir 22 units BID -Insulin sliding scale -BGM F/E/N -On no fluids -Hyperkalemia and hyperphosphatemia -Diabetic/Sodium controlled diet Prophylaxis -SCD's for DVT Disposition -Will need a wound VAC and PICC line. Will continue IV ABX for osteomyelitis Visit type - Emergency Visit Emergency Visit: Yes ED Registration Date: 08/19/16 Care time: The patient presented to the Emergency Department on the above date and was hospitalized for further evaluation of their emergent condition. - New Patient This patient is new to me today: Yes Date on this admission: 08/31/16 - Critical Care Critical Care patient: No
[2016-08-31] MEDS ORDERED: SODIUM POLYSTYRENE SULFONATE 15 GM/60 ML BOTTLE PO ONE (11:42)
[2016-08-31] MEDS: ASCORBIC ACID 500 MG TABLET (FP) PO SCH ×2 (12:31→12:36)
[2016-08-31] MEDS: FERROUS SO4 325 MG TABLET (FP) PO SCH ×2 (12:31→12:35)
[2016-08-31] MEDS: SODIUM BICARBONATE 650 MG TABLET PO SCH ×2 (12:31→12:36)
[2016-08-31] MEDS: amLODIPine BESYLATE 10 MG TABLET (FP) PO SCH ×2 (12:31→12:35)
--- NOTE | 2016-08-31 12:31 | PN ---
Teaching Attending Note Name of Resident: Marlena Bello ATTENDING PHYSICIAN STATEMENT I saw and evaluated the patient. I reviewed the resident's note and discussed the case with the resident. I agree with the resident's findings and plan as documented. SUBJECTIVE: resting comfortable. denies CP, SOB,fever, chills, N/V/C/D OBJECTIVE: Last Vital Signs Temp Pulse Resp BP Pulse Ox 97.8 F 74 16 167/90 93 L 08/31/16 10:40 08/31/16 10:40 08/31/16 10:40 08/31/16 10:40 08/31/16 10:25 General NAD CV S1 S2 RRR no murmur/rub/gallop Lungs CTA B/L anteriorly Abdomen soft NT/ND Extremities trace pitting edema B/L LE. L foot wrapped in gauze with some seeping of serosangeous fluid seen on gauze no edema RLE ASSESSMENT AND PLAN: 60yo M with PMH HTH, DM, Peripheral neuropathy, OM of L foot s/p amputation presented to the ER and was admitted for further evaluation of their emergent condition 1. Symptomatic anemia- anemia of chronic disease due to sepsis. s/p 9 units PRBC this admission. received epo 08/30 2. Sepsis due to L foot OM- s/p bone bx. NPO for OR today for debridement and simulans placement. cx not re-sent. abx switched to Ceftriaxone and flagyl. will need PICC for 6 weeks abx thearpy. d/w podiatry next course of action. pain control 3. Hyperkalemia- likely in setting of FROYLAN. persistent. no indication for HD at this time. nephrology on board. give kayexylate. repeat bmp in evening 4. Acute on CKD- Cr stable. on bicarb. nephrology on board. 5. hyperphosphatemia- likely due to kidney failure. improved. on phoslo. 6. diabetes- A1c 7.6. controlled. cont levemir BID and iss. diabetic/renal diet 7. HTN- improved. started on metoprolol 8. DVT ppx- SCD 9. will need ERICK on discharge. will d/w podiatry if able to go today post debridement
[2016-08-31] MEDS: METOPROLOL TARTRATE 25 MG TABLET (FP) PO SCH ×3 (12:32→23:12)
[2016-08-31] MEDS: ZINC SULFATE 220 MG CAPSULE (FP) PO SCH ×2 (12:32→12:36)
[2016-08-31] MEDS: FUROSEMIDE 40 MG TABLET (FP) PO SCH ×2 (12:32→12:35)
[2016-08-31] MEDS: PANTOPRAZOLE 20 MG TABLET (FP) PO SCH ×2 (12:32→12:36)
[2016-08-31] MEDS: FOLIC ACID 1 MG TABLET (FP) PO SCH ×2 (12:32→12:35)
[2016-08-31] MEDS: DULoxetine HCL 30 MG CAPSULE.DR (FP) PO SCH ×2 (12:33→12:34)
[2016-08-31] MEDS: METHYL SALICYLATE/MENTHOL OINT 30 GM TUBE TP SCH ×2 (12:34→23:53)
[2016-08-31] MEDS: DOXAZOSIN MESYLATE 4 MG TABLET PO SCH ×2 (12:34→12:37)
[2016-08-31] MEDS: PREGABALIN 50 MG CAPSULE PO SCH ×2 (12:35→23:12)
[2016-08-31] MEDS: cefTRIAXone 2 GM/100 ML BAG (PRE-DOCKED) IVPB SCH ×2 (12:36→12:38)
--- NOTE | 2016-08-31 12:45 | PN ---
Teaching Attending Note Name of Resident: Sis Barrett ATTENDING PHYSICIAN STATEMENT I saw and evaluated the patient. I reviewed the resident's note and discussed the case with the resident. I agree with the resident's findings and plan as documented. SUBJECTIVE: OBJECTIVE: ASSESSMENT AND PLAN: s/p debridement today vac in place foot with operative dressing osteomyelitis plan to continue rocephin and flagyl f/u operative cultures
--- NOTE | 2016-08-31 13:31 | PN ---
Physical Exam: SUBJECTIVE: Patient seen and examined OBJECTIVE: Vital Signs Period Temp Pulse Resp BP Sys/Gutierrez Pulse Ox Last 24 Hr 97.7 F-98.3 F 74-83 16-20 114-172/82-98 92-93 GENERAL: The patient is awake, alert, and fully oriented, in no acute distress. HEAD: Normal with no signs of trauma. EYES: PERRL, extraocular movements intact, sclera anicteric, conjunctiva clear. No ptosis. ENT: Ears normal, nares patent, oropharynx clear without exudates, moist mucous membranes. NECK: Trachea midline, full range of motion, supple. LUNGS: Breath sounds equal, clear to auscultation bilaterally, no wheezes, no crackles, no accessory muscle use. HEART: Regular rate and rhythm, S1, S2 without murmur, rub or gallop. ABDOMEN: Soft, nontender, nondistended, normoactive bowel sounds, no guarding, no rebound, no hepatosplenomegaly, no masses. EXTREMITIES: 2+ pulses, warm, well-perfused, no edema. NEUROLOGICAL: Cranial nerves II through XII grossly intact. Normal speech, gait not observed. PSYCH: Normal mood, normal affect. SKIN: Warm, dry, normal turgor, no rashes or lesions noted Laboratory Results - last 24 hr 08/28/16 08/30/16 08/30/16 09:15 16:32 20:54 WBC RBC Hgb Hct MCV MCHC RDW Plt Count MPV Neutrophils % Lymphocytes % Monocytes % Eosinophils % Basophils % Sodium Potassium Chloride Carbon Dioxide Anion Gap BUN Creatinine Creat Clearance w eGFR POC Glucometer 141 188 Random Glucose Calcium Phosphorus Total Bilirubin AST ALT Alkaline Phosphatase Total Protein Albumin Blood Type B POSITIVE Antibody Screen Negative Crossmatch See Detail 08/31/16 08/31/16 08/31/16 05:40 05:40 06:11 WBC 13.4 H RBC 2.94 L Hgb 7.3 L Hct 22.9 L MCV 78.0 L MCHC 31.9 L RDW 26.6 H Plt Count 365 MPV 7.7 Neutrophils % 85.8 H Lymphocytes % 6.9 L D Monocytes % 5.3 Eosinophils % 1.3 Basophils % 0.7 Sodium 141 Potassium 5.8 H Chloride 111 H Carbon Dioxide 23 Anion Gap 7 L BUN 59 H Creatinine 2.4 H Creat Clearance w eGFR 27.75 POC Glucometer 275 Random Glucose 242 H D Calcium 8.2 L Phosphorus 5.2 H Total Bilirubin 0.3 AST 22 ALT 31 D Alkaline Phosphatase 144 H Total Protein 7.8 Albumin 1.9 L Blood Type Antibody Screen Crossmatch 08/31/16 08/31/16 08/31/16 06:12 10:45 12:05 WBC RBC Hgb Hct MCV MCHC RDW Plt Count MPV Neutrophils % Lymphocytes % Monocytes % Eosinophils % Basophils % Sodium Potassium 5.7 H Chloride Carbon Dioxide Anion Gap BUN Creatinine Creat Clearance w eGFR POC Glucometer 268 243 Random Glucose Calcium Phosphorus Total Bilirubin AST ALT Alkaline Phosphatase Total Protein Albumin Blood Type Antibody Screen Crossmatch Active Medications Generic Name Dose Route Start Last Admin Trade Name Freq PRN Reason Stop Dose Admin Albuterol Sulfate 2 puff 08/31/16 10:24 Ventolin Hfa Inhaler - IH Q4H PRN WHEEZING Albuterol/Ipratropium 1 amp 08/31/16 14:00 Duoneb - NEB TIDR IGGY Amlodipine Besylate 10 mg 09/01/16 10:00 08/31/16 12:31 Norvasc - PO 10 mg DAILY IGGY Administration Ascorbic Acid 500 mg 09/01/16 10:00 08/31/16 12:31 Vitamin C - PO 500 mg DAILY IGGY Administration Calcium Acetate 1,334 mg 08/31/16 12:00 08/31/16 11:30 Phoslo - PO 1,334 mg TIDCM IGGY Administration Ceftriaxone Sodium 2 gm 09/01/16 10:00 08/31/16 12:38 Rocephin 2gm Ivpb (Pre-Docked) IVPB 2 gm DAILY IGGY Administration Protocol Doxazosin Mesylate 4 mg 09/01/16 10:00 08/31/16 12:37 Cardura - PO 4 mg DAILY IGGY Administration Duloxetine HCl 30 mg 09/01/16 10:00 08/31/16 12:33 Cymbalta - PO 30 mg DAILY IGGY Administration Ferrous Sulfate 325 mg 09/01/16 10:00 08/31/16 12:31 Feosol - PO 325 mg DAILY IGGY Administration Folic Acid 1 mg 09/01/16 10:00 08/31/16 12:32 Folic Acid - PO 1 mg DAILY IGGY Administration Furosemide 40 mg 09/01/16 10:00 08/31/16 12:32 Lasix - PO 40 mg DAILY IGGY Administration Metronidazole 100 mls @ 100 mls/hr 08/31/16 18:00 Flagyl 500mg Premixed Ivpb - IVPB Q8H-IV IGGY Insulin Aspart 1 vial 08/31/16 11:00 08/31/16 11:30 Novolog Vial Sliding Scale - SQ 4 unit TIDAC IGGY Administration Protocol Insulin Detemir 20 units 08/31/16 22:00 Levemir Vial SQ BID@0700,2200 I[facility] Methyl Salicylate 1 applic 08/31/16 22:00 Sterling-Greer - TP BID IGGY Metoprolol Tartrate 25 mg 08/31/16 22:00 08/31/16 12:32 Lopressor - PO 25 mg BID IGGY Administration Mirtazapine 30 mg 08/31/16 22:00 Remeron - PO HS IGGY Miscellaneous 1 each 08/31/16 10:24 Duragesic Patch Waste TD PRN PRN PAIN Morphine Sulfate 2 mg 08/31/16 09:49 Morphine Injection - IVPUSH 09/03/16 09:50 [id number] PRN PAIN Ondansetron HCl 4 mg 08/31/16 09:49 Zofran Injection IVPUSH 08/31/16 15:50 Q6H PRN NAUSEA AND/OR VOMITING Oxycodone HCl 10 mg 08/31/16 10:24 Roxicodone - PO Q6H PRN PAIN Pantoprazole Sodium 20 mg 09/01/16 10:00 08/31/16 12:32 Protonix - PO 20 mg DAILY IGGY Administration Pregabalin 100 mg 08/31/16 22:00 Lyrica - PO BID IGGY Sodium Bicarbonate 650 mg 09/01/16 10:00 08/31/16 12:31 Sodium Bicarbonate - PO 650 mg DAILY IGGY Administration Trazodone HCl 300 mg 08/31/16 22:00 Desyrel - PO HS IGGY Zinc Sulfate 220 mg 09/01/16 10:00 08/31/16 12:32 Orazinc - PO 220 mg DAILY IGGY Administration ASSESSMENT/PLAN: Pt is a 60 yo M with PMHx of DM, HTN, diabetic neuropathy with left foot amputation, and CKD who presents to the ED s/p syncopal episode from standing position with +LOC and +head trauma. Pt was found to have a Hgb of 3.7 and WBC of 26.1 upon presentation. #sepsis secondary to osteomyelitis: s/p debridement 08/27 and 08/31 -OR today s/p debridment -slight rise in white count -wound culutre 08/27 -left dorsum: +beta hemolytic strep Group G -left heel: negative -left plantar negative -MRI +osteomyelitis; -old sensitivities noted from previous infection -Dr Galvan ; I&D; with bone glue therapy; if treatment fail, will proceed with transtibial amputation _d/c vanco /unasyn -continue IV ceftriaxone and po flagyl -6 6 weeks antibiotic therapy -will need picc line Problem List - Problems (1) Chronic renal insufficiency, stage III (moderate) Code(s): N18.3 - CHRONIC KIDNEY DISEASE, STAGE 3 (MODERATE) (2) 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 Code(s): E11.9 - TYPE 2 DIABETES MELLITUS WITHOUT COMPLICATIONS (3) Diabetic neuropathy Code(s): E11.40 - TYPE 2 DIABETES MELLITUS WITH DIABETIC NEUROPATHY, UNSP (4) Foot infection Code(s): L08.9 - LOCAL INFECTION OF THE SKIN AND SUBCUTANEOUS TISSUE, UNSP (5) GERD (gastroesophageal reflux disease) Code(s): K21.9 - GASTRO-ESOPHAGEAL REFLUX DISEASE WITHOUT ESOPHAGITIS (6) HTN (hypertension) Code(s): I10 - ESSENTIAL (PRIMARY) HYPERTENSION (7) Osteomyelitis Code(s): M86.9 - OSTEOMYELITIS, UNSPECIFIED Visit type - Emergency Visit Emergency Visit: Yes ED Registration Date: 08/19/16 Care time: The patient presented to the Emergency Department on the above date and was hospitalized for further evaluation of their emergent condition. - New Patient This patient is new to me today: No - Critical Care Critical Care patient: No
[2016-08-31] MEDS ORDERED: ALBUTEROL SO4 2.5/IPRATROPIUM 0.5 INH SOL 3 ML VIAL.NEB. NEB SCH (14:00)
--- NOTE | 2016-08-31 14:21 | PN ---
Progress Note (short form) - Note Progress Note: Patient seen and examined feels better Last Vital Signs Temp Pulse Resp BP Pulse Ox 98.7 F 80 16 178/119 93 L 08/31/16 16:02 08/31/16 16:02 08/31/16 16:02 08/31/16 16:02 08/31/16 10:25 no murmurs, No gallops Lungs: Clear to P&A Abd: Soft, Normal bowel sounds, No organomegaly Ext:No significant edema Abnormal Lab Results 08/28/16 08/31/16 08/31/16 09:15 05:40 05:40 WBC 13.4 H RBC 2.94 L Hgb 7.3 L Hct 22.9 L MCV 78.0 L MCHC 31.9 L RDW 26.6 H Neutrophils % 85.8 H Lymphocytes % 6.9 L D Potassium 5.8 H Chloride 111 H Anion Gap 7 L BUN 59 H Creatinine 2.4 H Random Glucose 242 H D Calcium 8.2 L Phosphorus 5.2 H Alkaline Phosphatase 144 H Albumin 1.9 L Crossmatch See Detail 08/31/16 12:05 WBC RBC Hgb Hct MCV MCHC RDW Neutrophils % Lymphocytes % Potassium 5.7 H Chloride Anion Gap BUN Creatinine Random Glucose Calcium Phosphorus Alkaline Phosphatase Albumin Crossmatch Active Medications Generic Name Dose Route Start Last Admin Trade Name Freq PRN Reason Stop Dose Admin Albuterol Sulfate 2 puff 08/31/16 10:24 Ventolin Hfa Inhaler - IH Q4H PRN WHEEZING Albuterol/Ipratropium 1 amp 08/31/16 14:00 08/31/16 14:50 Duoneb - NEB Not Given TIDR IGGY Albuterol/Ipratropium 1 amp 08/31/16 22:00 Duoneb - NEB BID IGGY Amlodipine Besylate 10 mg 09/01/16 10:00 08/31/16 12:31 Norvasc - PO 10 mg DAILY IGGY Administration Ascorbic Acid 500 mg 09/01/16 10:00 08/31/16 12:31 Vitamin C - PO 500 mg DAILY IGGY Administration Calcium Acetate 1,334 mg 08/31/16 12:00 08/31/16 17:46 Phoslo - PO 1,334 mg TIDCM IGGY Administration Ceftriaxone Sodium 2 gm 09/01/16 10:00 08/31/16 12:38 Rocephin 2gm Ivpb (Pre-Docked) IVPB 2 gm DAILY IGGY Administration Protocol Doxazosin Mesylate 4 mg 09/01/16 10:00 08/31/16 12:37 Cardura - PO 4 mg DAILY IGGY Administration Duloxetine HCl 30 mg 09/01/16 10:00 08/31/16 12:33 Cymbalta - PO 30 mg DAILY IGGY Administration Ferrous Sulfate 325 mg 09/01/16 10:00 08/31/16 12:31 Feosol - PO 325 mg DAILY IGGY Administration Folic Acid 1 mg 09/01/16 10:00 08/31/16 12:32 Folic Acid - PO 1 mg DAILY IGGY Administration Furosemide 40 mg 09/01/16 10:00 08/31/16 12:32 Lasix - PO 40 mg DAILY IGGY Administration Metronidazole 100 mls @ 100 mls/hr 08/31/16 18:00 08/31/16 17:46 Flagyl 500mg Premixed Ivpb - IVPB 100 mls/hr Q8H-IV IGGY Administration Insulin Aspart 1 vial 08/31/16 11:00 08/31/16 18:40 Novolog Vial Sliding Scale - SQ 2 unit TIDAC [facility] Administration Protocol Insulin Detemir 20 units 08/31/16 22:00 Levemir Vial SQ BID@0700,2200 [facility] Methyl Salicylate 1 applic 08/31/16 22:00 Sterling-Greer - TP BID IGGY Metoprolol Tartrate 25 mg 08/31/16 22:00 08/31/16 12:32 Lopressor - PO 25 mg BID IGGY Administration Mirtazapine 30 mg 08/31/16 22:00 Remeron - PO HS IGGY Miscellaneous 1 each 08/31/16 10:24 Duragesic Patch Waste TD PRN PRN PAIN Morphine Sulfate 2 mg 08/31/16 09:49 Morphine Injection - IVPUSH 09/03/16 09:50 [id number] PRN PAIN Oxycodone HCl 10 mg 08/31/16 10:24 Roxicodone - PO Q6H PRN PAIN Pantoprazole Sodium 20 mg 09/01/16 10:00 08/31/16 12:32 Protonix - PO 20 mg DAILY IGGY Administration Pregabalin 100 mg 08/31/16 22:00 Lyrica - PO BID IGGY Sodium Bicarbonate 650 mg 09/01/16 10:00 08/31/16 12:31 Sodium Bicarbonate - PO 650 mg DAILY IGGY Administration Trazodone HCl 300 mg 08/31/16 22:00 Desyrel - PO HS IGGY Zinc Sulfate 220 mg 09/01/16 10:00 08/31/16 12:32 Orazinc - PO 220 mg DAILY IGGY Administration a/p 60 y/o male, with DM, h/o osteomyelitis, fell at assisted living, hit his face and neck. syncopal episode from profound anemia Microcytic anemia : Hgb 3.7 s/p PRBCs anemia of chronic disease from ongoing active osteomyelitis. s/p debridement/ vac EGD/colonoscopy few months ago were nl per patient, s/p polypectomies LDH--nl making hemolysis less likely Leukocytosis/thrombocytosis:? chronic reactive to bacteremia/ unlikely primary myeloproliferative disorder Reverse AG ratio : check protein studies. Need to r/o chronic inflammatory states vs plasma cell dyscraisa discussed with lab ---protein studies stillpending as they had to resend sample wll f/u
[2016-08-31] MEDS ORDERED: PT OWN MED DRAWER 7, Y5N ONE ×2 (18:22→23:10)
--- NOTE | 2016-08-31 18:55 | HOSP ---
Addendum entered and electronically signed by Marlena Bello RES 08/31/16 19:09 : Chest X-RAY REVEALED CONGESTION. STAT LASIX 40MG IV ORDERED Original Note: Physical Examination Vital Signs: Vital Signs Temperature 98.7 F 08/31/16 16:02 Pulse Rate 80 08/31/16 16:02 Respiratory Rate 16 08/31/16 16:02 Blood Pressure 178/119 08/31/16 16:02 O2 Sat by Pulse Oximetry (%) 93 L 08/31/16 10:25 Labs: CBC, BMP 08/31/16 05:40 08/31/16 12:05 Hospitalist Encounter Assessment: Notified by RN that patient is experiencing Dyspnea, diaphoresis and chest pain. Upon evaluation patient was saturating in the 80's on Ventimask with a heart rate in the 80's Patient reported diffuse sharp chest pain. STAT EKG ordered STAT Troponin ordered STAT Chest X-ray ordered STAT DuoNeb ordered Patient was given DuoNeb treatment X1 and symptoms resolved and patient was saturating in the mid 90's. Will continue with second dose as well EKG showed Normal sinus rhythm with no ST-T changes Vitals: Heart rate 88 02 saturation: 94% on duoneb treatment Temperature: 98.7 F Troponin pending Chest X-ray pending Visit type - Emergency Visit Emergency Visit: Yes ED Registration Date: 08/19/16 Care time: The patient presented to the Emergency Department on the above date and was hospitalized for further evaluation of their emergent condition. - New Patient This patient is new to me today: Yes Date on this admission: 08/31/16 - Critical Care Critical Care patient: Yes Total Critical Care Time (in minutes): 35 Critical Care Statement: The care of this patient involved high complexity decision making to prevent further life threatening deterioration of the patient 's condition and/or to evalute & treat vital organ system(s) failure or risk of failure.
[2016-08-31] MEDS ORDERED: FUROSEMIDE 40 MG/4 ML INJECTABLE VIAL IVPUSH STA (19:07)
--- NOTE | 2016-08-31 21:31 | PN ---
Progress Note (short form) - Note Progress Note: seen at bedside feels ok- had sob earlier Active Medications Albuterol Sulfate (Ventolin Hfa Inhaler -) 2 puff IH Q4H PRN PRN Reason: WHEEZING Albuterol/Ipratropium (Duoneb -) 1 amp NEB BID [facility] Amlodipine Besylate (Norvasc -) 10 mg PO DAILY [facility] Last Admin: 08/31/16 12:31 Dose: 10 mg Ascorbic Acid (Vitamin C -) 500 mg PO DAILY [facility] Last Admin: 08/31/16 12:31 Dose: 500 mg Calcium Acetate (Phoslo -) 1,334 mg PO TIDCM [facility] Last Admin: 08/31/16 17:46 Dose: 1,334 mg Ceftriaxone Sodium (Rocephin 2gm Ivpb (Pre-Docked)) 2 gm IVPB DAILY [facility] PRN Reason: Protocol Last Admin: 08/31/16 12:38 Dose: 2 gm Doxazosin Mesylate (Cardura -) 4 mg PO DAILY [facility] Last Admin: 08/31/16 12:37 Dose: 4 mg Duloxetine HCl (Cymbalta -) 30 mg PO DAILY [facility] Last Admin: 08/31/16 12:33 Dose: 30 mg Ferrous Sulfate (Feosol -) 325 mg PO DAILY [facility] Last Admin: 08/31/16 12:31 Dose: 325 mg Folic Acid (Folic Acid -) 1 mg PO DAILY [facility] Last Admin: 08/31/16 12:32 Dose: 1 mg Furosemide (Lasix -) 40 mg PO DAILY [facility] Last Admin: 08/31/16 12:32 Dose: 40 mg Metronidazole (Flagyl 500mg Premixed Ivpb -) 100 mls @ 100 mls/hr IVPB Q8H-IV [facility] Last Admin: 08/31/16 17:46 Dose: 100 mls/hr Insulin Aspart (Novolog Vial Sliding Scale -) 1 vial SQ TIDAC [facility] PRN Reason: Protocol Last Admin: 08/31/16 18:40 Dose: 2 unit Insulin Detemir (Levemir Vial) 20 units SQ BID@0700,2200 [facility] Methyl Salicylate (Sterling-Greer -) 1 applic TP BID [facility] Metoprolol Tartrate (Lopressor -) 25 mg PO BID [facility] Last Admin: 08/31/16 12:32 Dose: 25 mg Mirtazapine (Remeron -) [address] [facility] Miscellaneous (Duragesic Patch Waste) 1 each TD PRN PRN PRN Reason: PAIN Morphine Sulfate (Morphine Injection -) 2 mg IVPUSH [id number] PRN PRN Reason: PAIN Stop: 09/03/16 09:50 Oxycodone HCl (Roxicodone -) 10 mg PO Q6H PRN PRN Reason: PAIN Pantoprazole Sodium (Protonix -) 20 mg PO DAILY [facility] Last Admin: 08/31/16 12:32 Dose: 20 mg Pregabalin (Lyrica -) 100 mg PO BID [facility] Sodium Bicarbonate (Sodium Bicarbonate -) 650 mg PO DAILY [facility] Last Admin: 08/31/16 12:31 Dose: 650 mg Trazodone HCl (Desyrel -) 300 mg PO HS [facility] Zinc Sulfate (Orazinc -) 220 mg PO DAILY [facility] Last Admin: 08/31/16 12:32 Dose: 220 mg Last Vital Signs Temp Pulse Resp BP Pulse Ox 98.6 F 86 18 158/94 93 L 08/31/16 18:00 08/31/16 18:00 08/31/16 18:00 08/31/16 18:00 08/31/16 10:25 CBC, BMP 08/31/16 08/31/16 08/31/16 05:40 05:40 12:05 WBC 13.4 H Hgb 7.3 L Hct 22.9 L Sodium 141 Potassium 5.7 H BUN 59 H Creatinine 2.4 H Phosphorus 5.2 H IMP- hyperkalemia ckd stable anemia
[2016-08-31] MEDS: traZODone HCL 100 MG TABLET (FP) PO SCH (23:12)
[2016-08-31] MEDS: MIRTAZAPINE 15 MG TABLET (FP) PO SCH (23:13)
[2016-08-31] MEDS: oxyCODONE HCL 5 MG TABLET PO PRN (23:17)
[2016-09-01] MEDS: METRONIDAZOLE 500 MG PREMIXED 100 ML IVPB SCH ×3 (01:58→17:44)
[2016-09-01] MEDS: INSULIN DETEMIR 100 UNITS/ML MDV SQ SCH ×2 (06:19→23:04)
[2016-09-01] MEDS: INSULIN SLIDING SCALE (NOVOLOG) 1 VIAL SQ SCH ×3 (06:21→18:01)
[2016-09-01 07:30] LABS: MCH 24.7 pg (25.7-33.7); MCHC 31.1 g/dl (32.0-35.9); MEAN CELL VOLUME 79.2 fl (80-96); PLATELET COUNT 340 K/MM3 (134-434); RDW 26.5 % (11.9-15.9); WHITE BLOOD COUNT 11.8 K/mm3 (4.0-10.0)
[2016-09-01 07:39] LABS: ALBUMIN 1.9 g/dl (3.4-5.0); CALCIUM 8.1 mg/dL (8.5-10.1)
[2016-09-01 07:42] LABS: BILIRUBIN,TOTAL 0.3 mg/dL (0.2-1.0); COCKROFT - GAULT 45.14; CREATININE 2.4 mg/dL (0.7-1.3); TOT PROT 7.7 g/dl (6.4-8.2)
[2016-09-01] MEDS ORDERED: INSULIN (NOVOLOG) ASPART 100 UNITS/ML 10ML VIAL ONE (08:10)
[2016-09-01] MEDS ORDERED: FUROSEMIDE 40 MG/4 ML INJECTABLE VIAL IVPUSH ONE (08:19)
--- NOTE | 2016-09-01 08:23 | PN ---
Progress Note (short form) - Note Progress Note: states he was having difficulty breathing last night but improved after IV medication (lasix) was given. at the moment does not have SOB. denies CP, cough , fever, chills, N/V/C/d Current Medications Generic Name Dose Route Start Last Admin Trade Name Freq PRN Reason Stop Dose Admin Albuterol Sulfate 2 puff 08/31/16 10:24 Ventolin Hfa Inhaler - IH Q4H PRN WHEEZING Albuterol/Ipratropium 1 amp 08/31/16 22:00 08/31/16 22:20 Duoneb - NEB 1 amp BID [facility] Administration Amlodipine Besylate 10 mg 09/01/16 10:00 08/31/16 12:31 Norvasc - PO 10 mg DAILY [facility] Administration Ascorbic Acid 500 mg 09/01/16 10:00 08/31/16 12:31 Vitamin C - PO 500 mg DAILY [facility] Administration Calcium Acetate 1,334 mg 08/31/16 12:00 08/31/16 17:46 Phoslo - PO 1,334 mg TIDCM [facility] Administration Ceftriaxone Sodium 2 gm 09/01/16 10:00 08/31/16 12:38 Rocephin 2gm Ivpb (Pre-Docked) IVPB 2 gm DAILY [facility] Administration Protocol Doxazosin Mesylate 4 mg 09/01/16 10:00 08/31/16 12:37 Cardura - PO 4 mg DAILY [facility] Administration Duloxetine HCl 30 mg 09/01/16 10:00 08/31/16 12:33 Cymbalta - PO 30 mg DAILY [facility] Administration Ferrous Sulfate 325 mg 09/01/16 10:00 08/31/16 12:31 Feosol - PO 325 mg DAILY [facility] Administration Folic Acid 1 mg 09/01/16 10:00 08/31/16 12:32 Folic Acid - PO 1 mg DAILY [facility] Administration Furosemide 40 mg 09/01/16 10:00 08/31/16 12:32 Lasix - PO 40 mg DAILY [facility] Administration Metronidazole 100 mls @ 100 mls/hr 08/31/16 18:00 09/01/16 01:58 Flagyl 500mg Premixed Ivpb - IVPB 100 mls/hr Q8H-IV [facility] Administration Insulin Aspart 1 vial 08/31/16 11:00 09/01/16 06:21 Novolog Vial Sliding Scale - SQ Not Given TIDAC [facility] Protocol Insulin Detemir 20 units 08/31/16 22:00 09/01/16 06:19 Levemir Vial SQ 20 units BID@0700,2200 [facility] Administration Methyl Salicylate 1 applic 08/31/16 22:00 08/31/16 23:53 Sterling-Greer - TP Not Given BID [facility] Metoprolol Tartrate 25 mg 08/31/16 22:00 08/31/16 23:12 Lopressor - PO 25 mg BID [facility] Administration Mirtazapine 30 mg 08/31/16 22:00 08/31/16 23:13 Remeron - PO 30 mg HS [facility] Administration Miscellaneous 1 each 08/31/16 10:24 Duragesic Patch Waste TD PRN PRN PAIN Morphine Sulfate 2 mg 08/31/16 09:49 Morphine Injection - IVPUSH 09/03/16 09:50 [id number] PRN PAIN Oxycodone HCl 10 mg 08/31/16 10:24 08/31/16 23:17 Roxicodone - PO 10 mg Q6H PRN Administration PAIN Pantoprazole Sodium 20 mg 09/01/16 10:00 08/31/16 12:32 Protonix - PO 20 mg DAILY [facility] Administration Pregabalin 100 mg 08/31/16 22:00 08/31/16 23:12 Lyrica - PO 100 mg BID [facility] Administration Sodium Bicarbonate 650 mg 09/01/16 10:00 08/31/16 12:31 Sodium Bicarbonate - PO 650 mg DAILY [facility] Administration Trazodone HCl 300 mg 08/31/16 22:00 08/31/16 23:12 Desyrel - PO 300 mg HS [facility] Administration Zinc Sulfate 220 mg 09/01/16 10:00 08/31/16 12:32 Orazinc - PO 220 mg DAILY [facility] Administration Last Vital Signs Temp Pulse Resp BP Pulse Ox 98.8 F 77 16 149/90 94 L 09/01/16 06:24 09/01/16 06:24 09/01/16 06:24 09/01/16 06:24 08/31/16 21:00 General NAD CV S1 S2 RRR no murmur/rub/gallop Lungs Crckles B/L bases R>L no wheezing Abdomen soft NT/ND Extremities trace pitting edema LLE. wound vac applied to LLE CBCD WBC 11.8 K/mm3 (4.0-10.0) H 09/01/16 06:15 RBC 2.79 M/mm3 (4.00-5.60) L 09/01/16 06:15 Hgb 6.9 GM/dL (11.7-16.9) L* 09/01/16 06:15 Hct 22.1 % (35.4-49) L 09/01/16 06:15 MCV 79.2 fl (80-96) L 09/01/16 06:15 MCHC 31.1 g/dl (32.0-35.9) L 09/01/16 06:15 RDW 26.5 % (11.9-15.9) H 09/01/16 06:15 Plt Count 340 K/MM3 (134-434) 09/01/16 06:15 MPV 8.0 fl (7.5-11.1) 09/01/16 06:15 CMP Sodium 143 mmol/L (136-145) 09/01/16 06:15 Potassium 5.6 mmol/L (3.5-5.1) H 09/01/16 06:15 Chloride 113 mmol/L (98-107) H 09/01/16 06:15 Carbon Dioxide 23 mmol/L (21-32) 09/01/16 06:15 Anion Gap 7 (8-16) L 09/01/16 06:15 BUN 62 mg/dL (7-18) H 09/01/16 06:15 Creatinine 2.4 mg/dL (0.7-1.3) H 09/01/16 06:15 Creat Clearance w eGFR 27.75 (>60) 09/01/16 06:15 Calcium 8.1 mg/dL (8.5-10.1) L 09/01/16 06:15 Total Bilirubin 0.3 mg/dL (0.2-1.0) 09/01/16 06:15 AST 16 U/L (15-37) D 09/01/16 06:15 ALT 23 U/L (12-78) D 09/01/16 06:15 Alkaline Phosphatase 122 U/L (45-117) H 09/01/16 06:15 Total Protein 7.7 g/dl (6.4-8.2) 09/01/16 06:15 Albumin 1.9 g/dl (3.4-5.0) L 09/01/16 06:15 CXR increased congestion ASSESSMENT AND PLAN: 60yo M with PMH HTH, DM, Peripheral neuropathy, OM of L foot s/p amputation presented to the ER and was admitted for further evaluation of their emergent condition 1. Symptomatic anemia- anemia of chronic disease due to sepsis. s/p 9 units PRBC this admission. received epo 08/30. will transfuse 1 unit PRBC due to downtrending hgb. possible after procedure yesterday. protein studies sent and pending. hematology on board. 2. Sepsis due to L foot OM- s/p bone bx. s/p debridement yesterday. wound vac now placed. on Ceftriaxone/flagyl. will need PICC line and 6 weeks of abx. podiatry on board. pain control 3. Hyperkalemia- likely in setting of FROYLAN. persistent. kayexylate given. no BM reported. 4. Acute on CKD- Cr stable. on bicarb. nephrology on board. 5. hyperphosphatemia- likely due to kidney failure. improved. on phoslo. 6. diabetes- A1c 7.6. controlled. cont levemir BID and iss. diabetic/renal diet 7. HTN- above goal. increase metoprolol to 50mg BID. monitor 8. DVT ppx- SCD 9.d/c planning for saturday (09/03) will need ERICK on discharge Visit type - Emergency Visit Emergency Visit: Yes ED Registration Date: 08/19/16 Care time: The patient presented to the Emergency Department on the above date and was hospitalized for further evaluation of their emergent condition. - New Patient This patient is new to me today: No - Critical Care Critical Care patient: No - Discharge Referral Referred to [facility] Med P.C.: No
[2016-09-01] MEDS ORDERED: SODIUM POLYSTYRENE SULFONATE 15 GM/60 ML BOTTLE PO ONE (08:45)
--- NOTE | 2016-09-01 09:32 | PN ---
Progress Note, Physician Chief Complaint: Pt in good spirits, no anesthesia complaints. - Current Medication List Current Medications: Active Medications Albuterol Sulfate (Ventolin Hfa Inhaler -) 2 puff IH Q4H PRN PRN Reason: WHEEZING Albuterol/Ipratropium (Duoneb -) 1 amp NEB BID [facility] Last Admin: 08/31/16 22:20 Dose: 1 amp Amlodipine Besylate (Norvasc -) 10 mg PO DAILY [facility] Last Admin: 08/31/16 12:31 Dose: 10 mg Ascorbic Acid (Vitamin C -) 500 mg PO DAILY [facility] Last Admin: 08/31/16 12:31 Dose: 500 mg Calcium Acetate (Phoslo -) 1,334 mg PO TIDCM [facility] Last Admin: 08/31/16 17:46 Dose: 1,334 mg Ceftriaxone Sodium (Rocephin 2gm Ivpb (Pre-Docked)) 2 gm IVPB DAILY [facility] PRN Reason: Protocol Last Admin: 08/31/16 12:38 Dose: 2 gm Doxazosin Mesylate (Cardura -) 4 mg PO DAILY [facility] Last Admin: 08/31/16 12:37 Dose: 4 mg Duloxetine HCl (Cymbalta -) 30 mg PO DAILY [facility] Last Admin: 08/31/16 12:33 Dose: 30 mg Ferrous Sulfate (Feosol -) 325 mg PO DAILY [facility] Last Admin: 08/31/16 12:31 Dose: 325 mg Folic Acid (Folic Acid -) 1 mg PO DAILY [facility] Last Admin: 08/31/16 12:32 Dose: 1 mg Furosemide (Lasix -) 40 mg PO DAILY [facility] Last Admin: 08/31/16 12:32 Dose: 40 mg Metronidazole (Flagyl 500mg Premixed Ivpb -) 100 mls @ 100 mls/hr IVPB Q8H-IV [facility] Last Admin: 09/01/16 01:58 Dose: 100 mls/hr Insulin Aspart (Novolog Vial Sliding Scale -) 1 vial SQ TIDAC [facility] PRN Reason: Protocol Last Admin: 09/01/16 06:21 Dose: Not Given Insulin Detemir (Levemir Vial) 20 units SQ BID@0700,2200 [facility] Last Admin: 09/01/16 06:19 Dose: 20 units Methyl Salicylate (Sterling-Greer -) 1 applic TP BID [facility] Last Admin: 08/31/16 23:53 Dose: Not Given Metoprolol Tartrate (Lopressor -) 50 mg PO BID [facility] Mirtazapine (Remeron -) 30 mg PO [facility] Last Admin: 08/31/16 23:13 Dose: 30 mg Miscellaneous (Duragesic Patch Waste) 1 each TD PRN PRN PRN Reason: PAIN Morphine Sulfate (Morphine Injection -) 2 mg IVPUSH [id number] PRN PRN Reason: PAIN Stop: 09/03/16 09:50 Oxycodone HCl (Roxicodone -) 10 mg PO Q6H PRN PRN Reason: PAIN Last Admin: 08/31/16 23:17 Dose: 10 mg Pantoprazole Sodium (Protonix -) 20 mg PO DAILY [facility] Last Admin: 08/31/16 12:32 Dose: 20 mg Pregabalin (Lyrica -) 100 mg PO BID [facility] Last Admin: 08/31/16 23:12 Dose: 100 mg Sodium Bicarbonate (Sodium Bicarbonate -) 650 mg PO DAILY [facility] Last Admin: 08/31/16 12:31 Dose: 650 mg Trazodone HCl (Desyrel -) 300 mg PO [facility] Last Admin: 08/31/16 23:12 Dose: 300 mg Zinc Sulfate (Orazinc -) 220 mg PO DAILY [facility] Last Admin: 08/31/16 12:32 Dose: 220 mg - Objective Vital Signs: Vital Signs Temperature 98.8 F 09/01/16 06:24 Pulse Rate 77 09/01/16 06:24 Respiratory Rate 16 09/01/16 06:24 Blood Pressure 149/90 09/01/16 06:24 O2 Sat by Pulse Oximetry (%) 94 L 08/31/16 21:00 Constitutional: Yes: Well Nourished, No Distress, Calm Musculoskeletal: Yes: WNL Neurological: Yes: WNL, Alert, Oriented ...Motor Strength: WNL Labs: CBC, BMP 09/01/16 06:15 09/01/16 06:15 INR, PTT INR 1.26 (0.82-1.09) H 08/22/16 08:40 Fibrinogen 355.0 mg/dL (238-498) 08/20/16 17:10 Assessment/Plan POD#1 s/p L foot debridement with bone biopsy and VAC application.
[2016-09-01] MEDS ORDERED: PT OWN MED DRAWER 7, Y5N ONE ×2 (10:30→22:34)
[2016-09-01] MEDS: CALCIUM ACETATE 667 MG CAPSULE (FP) PO SCH ×3 (10:45→17:43)
[2016-09-01] MEDS: DOXAZOSIN MESYLATE 4 MG TABLET PO SCH (10:46)
[2016-09-01] MEDS: FOLIC ACID 1 MG TABLET (FP) PO SCH (10:46)
[2016-09-01] MEDS: FERROUS SO4 325 MG TABLET (FP) PO SCH (10:46)
[2016-09-01] MEDS: DULoxetine HCL 30 MG CAPSULE.DR (FP) PO SCH (10:46)
[2016-09-01] MEDS: METOPROLOL TARTRATE 25 MG TABLET (FP) PO SCH ×2 (10:46→23:03)
[2016-09-01] MEDS: FUROSEMIDE 40 MG TABLET (FP) PO SCH (10:46)
[2016-09-01] MEDS: PREGABALIN 50 MG CAPSULE PO SCH ×2 (10:47→23:03)
[2016-09-01] MEDS: ZINC SULFATE 220 MG CAPSULE (FP) PO SCH (10:47)
[2016-09-01] MEDS: cefTRIAXone 2 GM/100 ML BAG (PRE-DOCKED) IVPB SCH (10:47)
[2016-09-01] MEDS: ASCORBIC ACID 500 MG TABLET (FP) PO SCH (10:47)
[2016-09-01] MEDS: PANTOPRAZOLE 20 MG TABLET (FP) PO SCH (10:47)
[2016-09-01] MEDS: amLODIPine BESYLATE 10 MG TABLET (FP) PO SCH (10:47)
[2016-09-01] MEDS: SODIUM BICARBONATE 650 MG TABLET PO SCH (10:47)
[2016-09-01] MEDS: ALBUTEROL SO4 2.5/IPRATROPIUM 0.5 INH SOL 3 ML VIAL.NEB. NEB SCH ×2 (10:56→22:10)
--- NOTE | 2016-09-01 12:34 | OP ---
DATE OF OPERATION:08/31/2016 ADDENDUM The post debridement measurements measured 11.1 cm x 4.[address] NIURKA ARMSTRONG RT/[id number] MTDD
--- NOTE | 2016-09-01 12:52 | OP ---
DATE OF OPERATION: PROCEDURE: Osseous debridement of more than 45 cm2 of the left foot. PREOPERATIVE DIAGNOSIS: Osteomyelitis. POSTOPERATIVE DIAGNOSIS: Osteomyelitis. ANESTHESIA: Monitored local. SURGEON: Dr. 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 Solo Brewster CLINICAL INDICATIONS: Patient who has chronic osteomyelitis has undergone multiple amputations has presented to the operating theatre for osseous debridement for a limb salvage. The patient had an incised and drained abscess approximately 10 days ago. The procedure today is to perform limb salvage by insertion of Stimulans infused calcium pyrophosphate beads with gentamicin and vancomycin to facilitate osseous healing and bone regeneration. DESCRIPTION OF PROCEDURE: After prepping the patient in the usual manner, a well-padded midcalf tourniquet was inflated to 300 mmHg on the left leg. Attention was directed to the preoperative incised and drained ulceration. It measured 10 X 4.1 cm All fibrous tissue and necrotic tissue were removed. The anatomy was malformed due to the significant osseous destruction. The posterior tibial tendon was visualized and debrided of nonvital tissue but preserved as it was not totally necrotic. Further osseous debridement occurred to the level of the presumed remnants of the navicular in posterior superior calcaneus and talus. Pockets were noted into the calcaneus into the navicular and into the talus. All necrotic osseous tissue was debrided with the use of a curette and rongeur. After assessing viable bone, the wound was copiously irrigated. Throughout the procedure, the electrocautery device was used to ligate vessels. The Stimulans bone substrate was then mixed with 500 mg of gentamicin and 1 g of vancomycin. The beads were formed using the appropriate scaffolding, and the beads were inserted into the primary areas of the previous abscess and defect of the osseous defect; most likely the of the subtalar articulation and the calcaneus. Further debridement of necrotic soft tissue was then performed. All loose osseous bodies were removed. Surgicel was then applied at oozing bleeders, presumably branches of the posterior tibial artery. The post debridement measurements measured 11.1 cm x 4.5 cm. White foam was then applied on top of the granules from Stimulans. Black foam on top of that and then the [employer] wound VAC was then applied at 125 mmHg continuous pressure. Presumed further debridements will most likely be indicated. DR. NIURKA GALVAN RT/[id number] MTDD
--- NOTE | 2016-09-01 13:13 | PN ---
Progress Note, Physician History of Present Illness: Awake, alert No c/o foot pain No fever/ chills - Current Medication List Current Medications: Active Medications Albuterol Sulfate (Ventolin Hfa Inhaler -) 2 puff IH Q4H PRN PRN Reason: WHEEZING Albuterol/Ipratropium (Duoneb -) 1 amp NEB BID [facility] Last Admin: 09/01/16 10:56 Dose: Not Given Amlodipine Besylate (Norvasc -) 10 mg PO DAILY [facility] Last Admin: 09/01/16 10:47 Dose: 10 mg Ascorbic Acid (Vitamin C -) 500 mg PO DAILY [facility] Last Admin: 09/01/16 10:47 Dose: 500 mg Calcium Acetate (Phoslo -) 1,334 mg PO TIDCM [facility] Last Admin: 09/01/16 10:45 Dose: 1,334 mg Ceftriaxone Sodium (Rocephin 2gm Ivpb (Pre-Docked)) 2 gm IVPB DAILY [facility] PRN Reason: Protocol Last Admin: 09/01/16 10:47 Dose: 2 gm Doxazosin Mesylate (Cardura -) 4 mg PO DAILY [facility] Last Admin: 09/01/16 10:46 Dose: 4 mg Duloxetine HCl (Cymbalta -) 30 mg PO DAILY [facility] Last Admin: 09/01/16 10:46 Dose: 30 mg Ferrous Sulfate (Feosol -) 325 mg PO DAILY [facility] Last Admin: 09/01/16 10:46 Dose: 325 mg Folic Acid (Folic Acid -) 1 mg PO DAILY [facility] Last Admin: 09/01/16 10:46 Dose: 1 mg Furosemide (Lasix -) 40 mg PO DAILY [facility] Last Admin: 09/01/16 10:46 Dose: 40 mg Metronidazole (Flagyl 500mg Premixed Ivpb -) 100 mls @ 100 mls/hr IVPB Q8H-IV [facility] Last Admin: 09/01/16 10:47 Dose: 100 mls/hr Insulin Aspart (Novolog Vial Sliding Scale -) 1 vial SQ TIDAC [facility] PRN Reason: Protocol Last Admin: 09/01/16 06:21 Dose: Not Given Insulin Detemir (Levemir Vial) 20 units SQ BID@0700,2200 [facility] Last Admin: 09/01/16 06:19 Dose: 20 units Methyl Salicylate (Sterling-Greer -) 1 applic TP BID [facility] Last Admin: 08/31/16 23:53 Dose: Not Given Metoprolol Tartrate (Lopressor -) 50 mg PO BID [facility] Last Admin: 09/01/16 10:46 Dose: 50 mg Mirtazapine (Remeron -) 30 mg PO HS [facility] Last Admin: 08/31/16 23:13 Dose: 30 mg Miscellaneous (Duragesic Patch Waste) 1 each TD PRN PRN PRN Reason: PAIN Morphine Sulfate (Morphine Injection -) 2 mg IVPUSH [id number] PRN PRN Reason: PAIN Stop: 09/03/16 09:50 Oxycodone HCl (Roxicodone -) 10 mg PO Q6H PRN PRN Reason: PAIN Last Admin: 08/31/16 23:17 Dose: 10 mg Pantoprazole Sodium (Protonix -) 20 mg PO DAILY [facility] Last Admin: 09/01/16 10:47 Dose: 20 mg Pregabalin (Lyrica -) 100 mg PO BID [facility] Last Admin: 09/01/16 10:47 Dose: 100 mg Sodium Bicarbonate (Sodium Bicarbonate -) 650 mg PO DAILY [facility] Last Admin: 09/01/16 10:47 Dose: 650 mg Trazodone HCl (Desyrel -) 300 mg PO HS [facility] Last Admin: 08/31/16 23:12 Dose: 300 mg Zinc Sulfate (Orazinc -) 220 mg PO DAILY [facility] Last Admin: 09/01/16 10:47 Dose: 220 mg - Objective Vital Signs: Vital Signs Temperature 98.8 F 09/01/16 06:24 Pulse Rate 77 09/01/16 06:24 Respiratory Rate 16 09/01/16 06:24 Blood Pressure 149/90 09/01/16 06:24 O2 Sat by Pulse Oximetry (%) 94 L 08/31/16 21:00 Constitutional: Yes: No Distress Eyes: Yes: Conjunctiva Clear Cardiovascular: Yes: Regular Rate and Rhythm, S1, S2 Respiratory: Yes: CTA Bilaterally Gastrointestinal: Yes: Normal Bowel Sounds, Soft Extremities: Yes: Other (post op dressing in place) Labs: CBC, BMP 09/01/16 06:15 09/01/16 06:15 INR, PTT INR 1.26 (0.82-1.09) H 08/22/16 08:40 Fibrinogen 355.0 mg/dL (238-498) 08/20/16 17:10 Assessment/Plan Foot abscess/ osteomyelitis CKD Continue ceftriaxone/ flagyl
--- NOTE | 2016-09-01 16:18 | PN ---
Progress Note (short form) - Note Progress Note: feels better today he had childhood asthma and was asymptomatic x >30 years on O2 Current Medications Albuterol Sulfate (Ventolin Hfa Inhaler -) 2 puff IH Q4H PRN PRN Reason: WHEEZING Albuterol/Ipratropium (Duoneb -) 1 amp NEB BID [facility] Last Admin: 09/01/16 10:56 Dose: Not Given Amlodipine Besylate (Norvasc -) 10 mg PO DAILY [facility] Last Admin: 09/01/16 10:47 Dose: 10 mg Ascorbic Acid (Vitamin C -) 500 mg PO DAILY [facility] Last Admin: 09/01/16 10:47 Dose: 500 mg Calcium Acetate (Phoslo -) 1,334 mg PO TIDCM [facility] Last Admin: 09/01/16 10:45 Dose: 1,334 mg Ceftriaxone Sodium (Rocephin 2gm Ivpb (Pre-Docked)) 2 gm IVPB DAILY [facility] PRN Reason: Protocol Last Admin: 09/01/16 10:47 Dose: 2 gm Doxazosin Mesylate (Cardura -) 4 mg PO DAILY [facility] Last Admin: 09/01/16 10:46 Dose: 4 mg Duloxetine HCl (Cymbalta -) 30 mg PO DAILY [facility] Last Admin: 09/01/16 10:46 Dose: 30 mg Ferrous Sulfate (Feosol -) 325 mg PO DAILY [facility] Last Admin: 09/01/16 10:46 Dose: 325 mg Folic Acid (Folic Acid -) 1 mg PO DAILY [facility] Last Admin: 09/01/16 10:46 Dose: 1 mg Furosemide (Lasix -) 40 mg PO DAILY [facility] Last Admin: 09/01/16 10:46 Dose: 40 mg Metronidazole (Flagyl 500mg Premixed Ivpb -) 100 mls @ 100 mls/hr IVPB Q8H-IV [facility] Last Admin: 09/01/16 10:47 Dose: 100 mls/hr Insulin Aspart (Novolog Vial Sliding Scale -) 1 vial SQ TIDAC [facility] PRN Reason: Protocol Last Admin: 09/01/16 06:21 Dose: Not Given Insulin Detemir (Levemir Vial) 20 units SQ BID@0700,2200 [facility] Last Admin: 09/01/16 06:19 Dose: 20 units Methyl Salicylate (Sterling-Greer -) 1 applic TP BID [facility] Last Admin: 08/31/16 23:53 Dose: Not Given Metoprolol Tartrate (Lopressor -) 50 mg PO BID [facility] Last Admin: 09/01/16 10:46 Dose: 50 mg Mirtazapine (Remeron -) 30 mg PO HS [facility] Last Admin: 08/31/16 23:13 Dose: 30 mg Miscellaneous (Duragesic Patch Waste) 1 each TD PRN PRN PRN Reason: PAIN Morphine Sulfate (Morphine Injection -) 2 mg IVPUSH [id number] PRN PRN Reason: PAIN Stop: 09/03/16 09:50 Oxycodone HCl (Roxicodone -) 10 mg PO Q6H PRN PRN Reason: PAIN Last Admin: 08/31/16 23:17 Dose: 10 mg Pantoprazole Sodium (Protonix -) 20 mg PO DAILY [facility] Last Admin: 09/01/16 10:47 Dose: 20 mg Pregabalin (Lyrica -) 100 mg PO BID [facility] Last Admin: 09/01/16 10:47 Dose: 100 mg Sodium Bicarbonate (Sodium Bicarbonate -) 650 mg PO DAILY [facility] Last Admin: 09/01/16 10:47 Dose: 650 mg Trazodone HCl (Desyrel -) 300 mg PO [facility] Last Admin: 08/31/16 23:12 Dose: 300 mg Zinc Sulfate (Orazinc -) 220 mg PO DAILY [facility] Last Admin: 09/01/16 10:47 Dose: 220 mg Last Vital Signs Temp Pulse Resp BP Pulse Ox 98.8 F 133 H 20 149/84 94 L 09/01/16 14:00 09/01/16 14:00 09/01/16 14:00 09/01/16 14:00 08/31/16 21:00 lungs clear heart rrr abd soft nontender ext no edema CBC, BMP 09/01/16 06:15 09/01/16 06:15 IMP- ckd stable hyperkalemia severe anemia Plan- kayexalate
[2016-09-01] MEDS: METHYL SALICYLATE/MENTHOL OINT 30 GM TUBE TP SCH ×2 (16:19→23:03)
--- NOTE | 2016-09-01 16:29 | EKG ---
Test Reason : Blood Pressure : / mmHG Vent. Rate : 090 BPM Atrial Rate : 090 BPM P-R Int : 200 ms QRS Dur : 088 ms QT Int : 360 ms P-R-T Axes : 098 081 066 degrees QTc Int : 440 ms NORMAL SINUS RHYTHM SEPTAL INFARCT , AGE UNDETERMINED ABNORMAL ECG WHEN COMPARED WITH ECG OF 19-AUG-2016 21:52, SEPTAL INFARCT IS NOW PRESENT Confirmed by NAVEED MORAN MD ([id number]) on 09/01/2016 4:29:05 PM Referred By: Confirmed By:NAVEED MORAN MD
[2016-09-01] MEDS ORDERED: DEXTROSE 50%-WATER 50 ML DISP.SYRIN ONE (17:55)
[2016-09-01] MEDS ORDERED: DEXTROSE 50%-WATER 50 ML DISP.SYRIN IVPUSH ONE (18:45)
[2016-09-01] MEDS ORDERED: FUROSEMIDE 100 MG/10 ML INJECTABLE VIAL ONE (19:55)
[2016-09-01 21:15] LABS: MCHC 31.7 g/dl (32.0-35.9); MEAN CELL VOLUME 78.8 fl (80-96); MEAN PLT VOLUME 7.8 fl (7.5-11.1); PLATELET COUNT 339 K/MM3 (134-434); RDW 25.5 % (11.9-15.9)
[2016-09-01 22:13] LABS: PLATELET ESTIMATE ADEQUATE (NORMAL)
[2016-09-01 22:14] LABS: ANISOCYTOSIS 2+; HYPOCHROMIA 1+; MICROCYTOSIS 1+; TARGET CELLS 1+
[2016-09-01] MEDS: traZODone HCL 100 MG TABLET (FP) PO SCH (23:02)
[2016-09-01] MEDS: MIRTAZAPINE 15 MG TABLET (FP) PO SCH (23:02)
[2016-09-01] MEDS: oxyCODONE HCL 5 MG TABLET PO PRN (23:04)
[2016-09-02] MEDS: METHYL SALICYLATE/MENTHOL OINT 30 GM TUBE TP SCH ×3 (00:12→22:14)
[2016-09-02] MEDS: METRONIDAZOLE 500 MG PREMIXED 100 ML IVPB SCH ×3 (01:28→17:44)
[2016-09-02] MEDS: INSULIN DETEMIR 100 UNITS/ML MDV SQ SCH ×2 (06:12→22:07)
[2016-09-02] MEDS: INSULIN SLIDING SCALE (NOVOLOG) 1 VIAL SQ SCH ×3 (06:13→17:51)
[2016-09-02 08:21] LABS: MCH 25.7 pg (25.7-33.7); MCHC 32.7 g/dl (32.0-35.9); MEAN CELL VOLUME 78.6 fl (80-96); PLATELET COUNT 324 K/MM3 (134-434); RDW 25.4 % (11.9-15.9); WHITE BLOOD COUNT 9.1 K/mm3 (4.0-10.0)
[2016-09-02 08:31] LABS: ALBUMIN 1.8 g/dl (3.4-5.0); BILIRUBIN,TOTAL 0.3 mg/dL (0.2-1.0); CALCIUM 7.7 mg/dL (8.5-10.1); COCKROFT - GAULT 43.34; CREATININE 2.5 mg/dL (0.7-1.3); PHOSPHOROUS 5.8 mg/dL (2.5-4.9); TOT PROT 7.3 g/dl (6.4-8.2)
[2016-09-02] MEDS: CALCIUM ACETATE 667 MG CAPSULE (FP) PO SCH ×3 (09:12→17:43)
[2016-09-02] MEDS: ZINC SULFATE 220 MG CAPSULE (FP) PO SCH (09:16)
[2016-09-02] MEDS: FOLIC ACID 1 MG TABLET (FP) PO SCH (09:16)
[2016-09-02] MEDS: PREGABALIN 50 MG CAPSULE PO SCH ×2 (09:16→22:07)
[2016-09-02] MEDS: PANTOPRAZOLE 20 MG TABLET (FP) PO SCH (09:17)
[2016-09-02] MEDS: FERROUS SO4 325 MG TABLET (FP) PO SCH (09:17)
[2016-09-02] MEDS: amLODIPine BESYLATE 10 MG TABLET (FP) PO SCH (09:17)
[2016-09-02] MEDS: DULoxetine HCL 30 MG CAPSULE.DR (FP) PO SCH (09:17)
[2016-09-02] MEDS: METOPROLOL TARTRATE 25 MG TABLET (FP) PO SCH ×2 (09:17→22:07)
[2016-09-02] MEDS: ASCORBIC ACID 500 MG TABLET (FP) PO SCH (09:17)
[2016-09-02] MEDS: SODIUM BICARBONATE 650 MG TABLET PO SCH (09:17)
[2016-09-02] MEDS: FUROSEMIDE 40 MG TABLET (FP) PO SCH (09:17)
[2016-09-02] MEDS: DOXAZOSIN MESYLATE 4 MG TABLET PO SCH (09:18)
[2016-09-02] MEDS: oxyCODONE HCL 5 MG TABLET PO PRN ×2 (09:31→20:13)
[2016-09-02] MEDS: cefTRIAXone 2 GM/100 ML BAG (PRE-DOCKED) IVPB SCH (09:32)
[2016-09-02] MEDS: ALBUTEROL SO4 2.5/IPRATROPIUM 0.5 INH SOL 3 ML VIAL.NEB. NEB SCH ×2 (10:27→22:26)
--- NOTE | 2016-09-02 13:05 | PN ---
Progress Note (short form) - Note Progress Note: +orthopnea when he laid down to go to bed last night. states he "feels like hes drowning". denies CP, cough, fever, chills, N/V/C/d Current Medications Generic Name Dose Route Start Last Admin Trade Name Freq PRN Reason Stop Dose Admin Albuterol Sulfate 2 puff 08/31/16 10:24 Ventolin Hfa Inhaler - IH Q4H PRN WHEEZING Albuterol/Ipratropium 1 amp 08/31/16 22:00 09/02/16 10:27 Duoneb - NEB 1 amp BID IGGY Administration Amlodipine Besylate 10 mg 09/01/16 10:00 09/02/16 09:17 Norvasc - PO 10 mg DAILY IGGY Administration Ascorbic Acid 500 mg 09/01/16 10:00 09/02/16 09:17 Vitamin C - PO 500 mg DAILY IGGY Administration Calcium Acetate 1,334 mg 08/31/16 12:00 09/02/16 12:22 Phoslo - PO 1,334 mg TIDCM IGGY Administration Ceftriaxone Sodium 2 gm 09/01/16 10:00 09/02/16 09:32 Rocephin 2gm Ivpb (Pre-Docked) IVPB 2 gm DAILY IGGY Administration Protocol Doxazosin Mesylate 4 mg 09/01/16 10:00 09/02/16 09:18 Cardura - PO 4 mg DAILY IGGY Administration Duloxetine HCl 30 mg 09/01/16 10:00 09/02/16 09:17 Cymbalta - PO 30 mg DAILY IGGY Administration Ferrous Sulfate 325 mg 09/01/16 10:00 09/02/16 09:17 Feosol - PO 325 mg DAILY IGGY Administration Folic Acid 1 mg 09/01/16 10:00 09/02/16 09:16 Folic Acid - PO 1 mg DAILY IGGY Administration Furosemide 40 mg 09/01/16 10:00 09/02/16 09:17 Lasix - PO 40 mg DAILY IGGY Administration Metronidazole 100 mls @ 100 mls/hr 08/31/16 18:00 09/02/16 09:12 Flagyl 500mg Premixed Ivpb - IVPB 100 mls/hr Q8H-IV IGGY Administration Insulin Aspart 1 vial 08/31/16 11:00 09/02/16 12:16 Novolog Vial Sliding Scale - SQ 6 unit TIDAC IGGY Administration Protocol Insulin Detemir 20 units 08/31/16 22:00 09/02/16 06:12 Levemir Vial SQ Not Given BID@0700,2200 IGGY Methyl Salicylate 1 applic 08/31/16 22:00 09/02/16 09:18 Sterling-Greer - TP 1 applic BID IGGY Administration Metoprolol Tartrate 50 mg 09/01/16 10:00 09/02/16 09:17 Lopressor - PO 50 mg BID IGGY Administration Mirtazapine 30 mg 08/31/16 22:00 09/01/16 23:02 Remeron - PO 30 mg HS IGGY Administration Miscellaneous 1 each 08/31/16 10:24 Duragesic Patch Waste TD PRN PRN PAIN Morphine Sulfate 2 mg 08/31/16 09:49 Morphine Injection - IVPUSH 09/03/16 09:50 [id number] PRN PAIN Oxycodone HCl 10 mg 08/31/16 10:24 09/02/16 09:31 Roxicodone - PO 10 mg Q6H PRN Administration PAIN Pantoprazole Sodium 20 mg 09/01/16 10:00 09/02/16 09:17 Protonix - PO 20 mg DAILY IGGY Administration Pregabalin 100 mg 08/31/16 22:00 09/02/16 09:16 Lyrica - PO 100 mg BID IGGY Administration Sodium Bicarbonate 650 mg 09/01/16 10:00 09/02/16 09:17 Sodium Bicarbonate - PO 650 mg DAILY IGGY Administration Trazodone HCl 300 mg 08/31/16 22:00 09/01/16 23:02 Desyrel - PO 300 mg HS IGGY Administration Zinc Sulfate 220 mg 09/01/16 10:00 09/02/16 09:16 Orazinc - PO 220 mg DAILY IGGY Administration Last Vital Signs Temp Pulse Resp BP Pulse Ox 97.6 F 76 19 168/99 95 09/02/16 09:36 09/02/16 09:36 09/02/16 09:36 09/02/16 09:36 09/02/16 09:00 General NAD CV S1 S2 RRR no murmur/rub/gallop Lungs Crckles B/L bases R>L no wheezing Abdomen soft NT/ND Extremities trace pitting edema LLE. wound vac applied to LLE ASSESSMENT AND PLAN: 60yo M with PMH HTH, DM, Peripheral neuropathy, OM of L foot s/p amputation presented to the ER and was admitted for further evaluation of their emergent condition 1. Symptomatic anemia- anemia of chronic disease due to sepsis. s/p 10 units PRBC this admission. received epo 5/. additional unit given yesterday for total of 10 will watch closely. protein studies sent and pending. hematology on board. 2. Sepsis due to L foot OM- s/p bone bx. s/p debridement yesterday. wound vac now placed. on Ceftriaxone/flagyl. will need PICC line and 6 weeks of abx. podiatry on board. pain control 3. Hyperkalemia- likely in setting of FROYLAN. persistent. give kayexylate 30g today / +BM yesterday 4. Acute hypoxoc respiratory failure- saturing 82% on RA requiring NC to maintain spO2 >90%. will give additonal lasix 40mg IVP. monitor kidney function. 5. Acute on CKD- Cr stable. on bicarb. nephrology on board. 6. hyperphosphatemia- likely due to kidney failure. improved. on phoslo. 7. diabetes- A1c 7.6. controlled. cont levemir BID and iss. diabetic/renal diet 8. HTN- above goal. increase metoprolol to 50mg BID. monitor 9. DVT ppx- SCD 10.d/c planning for saturday (09/03) will need ERICK on discharge Visit type - Emergency Visit Emergency Visit: Yes ED Registration Date: 08/19/16 Care time: The patient presented to the Emergency Department on the above date and was hospitalized for further evaluation of their emergent condition. - New Patient This patient is new to me today: No - Critical Care Critical Care patient: No - Discharge Referral Referred to [facility] No
[2016-09-02] MEDS ORDERED: SODIUM POLYSTYRENE SULFONATE 15 GM/60 ML BOTTLE PO ONE ×2 (13:06→14:15)
[2016-09-02] MEDS ORDERED: FUROSEMIDE 40 MG/4 ML INJECTABLE VIAL IVPUSH ONE (14:15)
--- NOTE | 2016-09-02 15:10 | PN ---
Progress Note (short form) - Note Progress Note: Current Medications Albuterol Sulfate (Ventolin Hfa Inhaler -) 2 puff IH Q4H PRN PRN Reason: WHEEZING Albuterol/Ipratropium (Duoneb -) 1 amp NEB BID [facility] Last Admin: 09/02/16 10:27 Dose: 1 amp Amlodipine Besylate (Norvasc -) 10 mg PO DAILY [facility] Last Admin: 09/02/16 09:17 Dose: 10 mg Ascorbic Acid (Vitamin C -) 500 mg PO DAILY [facility] Last Admin: 09/02/16 09:17 Dose: 500 mg Calcium Acetate (Phoslo -) 1,334 mg PO TIDCM [facility] Last Admin: 09/02/16 12:22 Dose: 1,334 mg Ceftriaxone Sodium (Rocephin 2gm Ivpb (Pre-Docked)) 2 gm IVPB DAILY [facility] PRN Reason: Protocol Last Admin: 09/02/16 09:32 Dose: 2 gm Doxazosin Mesylate (Cardura -) 4 mg PO DAILY [facility] Last Admin: 09/02/16 09:18 Dose: 4 mg Duloxetine HCl (Cymbalta -) 30 mg PO DAILY [facility] Last Admin: 09/02/16 09:17 Dose: 30 mg Ferrous Sulfate (Feosol -) 325 mg PO DAILY [facility] Last Admin: 09/02/16 09:17 Dose: 325 mg Folic Acid (Folic Acid -) 1 mg PO DAILY [facility] Last Admin: 09/02/16 09:16 Dose: 1 mg Furosemide (Lasix -) 40 mg PO DAILY [facility] Last Admin: 09/02/16 09:17 Dose: 40 mg Metronidazole (Flagyl 500mg Premixed Ivpb -) 100 mls @ 100 mls/hr IVPB Q8H-IV [facility] Last Admin: 09/02/16 09:12 Dose: 100 mls/hr Insulin Aspart (Novolog Vial Sliding Scale -) 1 vial SQ TIDAC [facility] PRN Reason: Protocol Last Admin: 09/02/16 12:16 Dose: 6 unit Insulin Detemir (Levemir Vial) 20 units SQ BID@0700,2200 [facility] Last Admin: 09/02/16 06:12 Dose: Not Given Methyl Salicylate (Sterling-Greer -) 1 applic TP BID [facility] Last Admin: 09/02/16 09:18 Dose: 1 applic Metoprolol Tartrate (Lopressor -) 50 mg PO BID [facility] Last Admin: 09/02/16 09:17 Dose: 50 mg Mirtazapine (Remeron -) 30 mg PO HS [facility] Last Admin: 09/01/16 23:02 Dose: 30 mg Miscellaneous (Duragesic Patch Waste) 1 each TD PRN PRN PRN Reason: PAIN Morphine Sulfate (Morphine Injection -) 2 mg IVPUSH [id number] PRN PRN Reason: PAIN Stop: 09/03/16 09:50 Oxycodone HCl (Roxicodone -) 10 mg PO Q6H PRN PRN Reason: PAIN Last Admin: 09/02/16 09:31 Dose: 10 mg Pantoprazole Sodium (Protonix -) 20 mg PO DAILY [facility] Last Admin: 09/02/16 09:17 Dose: 20 mg Pregabalin (Lyrica -) 100 mg PO BID [facility] Last Admin: 09/02/16 09:16 Dose: 100 mg Sodium Bicarbonate (Sodium Bicarbonate -) 650 mg PO DAILY [facility] Last Admin: 09/02/16 09:17 Dose: 650 mg Trazodone HCl (Desyrel -) 300 mg PO HS [facility] Last Admin: 09/01/16 23:02 Dose: 300 mg Zinc Sulfate (Orazinc -) 220 mg PO DAILY [facility] Last Admin: 09/02/16 09:16 Dose: 220 mg Last Vital Signs Temp Pulse Resp BP Pulse Ox 97.6 F 76 19 168/99 95 09/02/16 09:36 09/02/16 09:36 09/02/16 09:36 09/02/16 09:36 09/02/16 09:00 Laboratory Last Values WBC 9.1 K/mm3 (4.0-10.0) 09/02/16 06:00 RBC 2.79 M/mm3 (4.00-5.60) L 09/02/16 06:00 Hgb 7.2 GM/dL (11.7-16.9) L 09/02/16 06:00 Hct 21.9 % (35.4-49) L 09/02/16 06:00 MCV 78.6 fl (80-96) L 09/02/16 06:00 MCHC 32.7 g/dl (32.0-35.9) 09/02/16 06:00 RDW 25.4 % (11.9-15.9) H 09/02/16 06:00 Plt Count 324 K/MM3 (134-434) 09/02/16 06:00 MPV 8.0 fl (7.5-11.1) 09/02/16 06:00 Neutrophils % 85.8 % (42.8-82.8) H 08/31/16 05:40 Lymphocytes % 6.9 % (8-40) L D 08/31/16 05:40 Monocytes % 5.3 % (3.8-10.2) 08/31/16 05:40 Eosinophils % 1.3 % (0-4.5) 08/31/16 05:40 Basophils % 0.7 % (0-2.0) 08/31/16 05:40 Band Neutrophils 3.0 % (0-10) 08/20/16 18:15 Differential Comment Manual diff done 08/19/16 20:40 Platelet Estimate Adequate (NORMAL) 09/01/16 20:30 Platelet Comment No clumping noted 09/01/16 20:30 Polychromasia 1+ 08/20/16 18:15 Hypochromic-Microcytic 1+ 09/01/16 20:30 Poikilocytosis 1+ 08/20/16 18:15 Basophilic Stippling 1+ 09/01/16 20:30 Anisocytosis 2+ 09/01/16 20:30 Microcytosis 1+ 09/01/16 20:30 Macrocytosis Few 08/29/16 05:35 Target Cells 1+ 09/01/16 20:30 Fragmented RBCs Few 08/29/16 05:35 Schistocytes 1+ 08/19/16 20:40 Morphology Comment Slide scanned 08/24/16 18:45 ESR 118 mm/hr (0-20) H 08/29/16 05:35 Retic Count Cancelled 08/20/16 06:15 Hemoglobin A 98.1 % (94.0-98.0) H 08/21/16 05:17 Hemoglobin A2 1.9 % (0.7-3.1) 08/21/16 05:17 Hemoglobin C 0 % (0.0) 08/21/16 05: Hemoglobin S 0 % (0.0) 08/21/16 05:17 Variant Hemoglobin TNP 08/21/16 05:17 Hemoglobin Interpret (.) 08/21/16 05:17 Maternal Rh 0 % (0.0-2.0) 08/21/16 05:17 Hemoglobin Solubility Negative (Negative) 08/21/16 05:17 Haptoglobin 389 mg/dL (34-200) H 08/20/16 17:10 INR 1.26 (0.82-1.09) H 08/22/16 08:40 PTT (Actin FS) 39.5 SECONDS (26.9-34.4) H 08/20/16 17:10 Fibrinogen 355.0 mg/dL (238-498) 08/20/16 17:10 Sodium 143 mmol/L (136-145) 09/02/16 06:00 Potassium 5.7 mmol/L (3.5-5.1) H 09/02/16 06:00 Chloride 111 mmol/L (98-107) H 09/02/16 06:00 Carbon Dioxide 24 mmol/L (21-32) 09/02/16 06:00 Anion Gap 8 (8-16) 09/02/16 06:00 BUN 65 mg/dL (7-18) H 09/02/16 06:00 Creatinine 2.5 mg/dL (0.7-1.3) H 09/02/16 06:00 Creat Clearance w eGFR 26.48 (>60) 09/02/16 06:00 POC Glucometer 273 UNITS (()) 09/02/16 12:13 Random Glucose 97 mg/dL (74-106) 09/02/16 06:00 Lactic Acid 1.135 mmol/L (0.4-2.0) 08/19/16 22:20 Calcium 7.7 mg/dL (8.5-10.1) L 09/02/16 06:00 Phosphorus 5.8 mg/dL (2.5-4.9) H 09/02/16 06:00 Magnesium 1.9 mg/dL (1.8-2.4) 08/30/16 05:35 Iron 7 ug/dL (38-169) L 08/19/16 20:40 TIBC 130 ug/dL (250-450) L 08/19/16 20:40 Iron Saturation 5 % (15-55) L 08/19/16 20:40 Ferritin 398.205 ng/ml (16.4-293.9) H 08/19/16 20:40 Total Bilirubin 0.3 mg/dL (0.2-1.0) 09/02/16 06:00 AST 14 U/L (15-37) L 09/02/16 06:00 ALT 19 U/L (12-78) 09/02/16 06:00 Alkaline Phosphatase 124 U/L (45-117) H 09/02/16 06:00 LD Total 183 U/L (87-241) 08/19/16 20:40 Creatine Kinase 141 IU/L (39-308) 08/19/16 20:40 Troponin I < 0.02 ng/ml (0.00-0.05) 08/31/16 19:00 C-Reactive Protein 7.9 MG/DL (0.00-0.3) H 08/29/16 05:35 B-Natriuretic Peptide 57011.77 pg/ml (5-125) H 09/02/16 06:00 Prot Electrophoresis Cancelled 08/21/16 05:17 Serum Total Protein Cancelled 08/21/16 05:17 Total Protein 7.3 g/dl (6.4-8.2) 09/02/16 06:00 Albumin 1.8 g/dl (3.4-5.0) L 09/02/16 06:00 Globulin Cancelled 08/21/16 05:17 Albumin/Globulin Ratio Cancelled 08/21/16 05:17 [id number] Cancelled 08/21/16 05:17 [id number] Cancelled 08/21/16 05:17 Beta Globulins Cancelled 08/21/16 05:17 Gamma Globulins Cancelled 08/21/16 05:17 Vitamin B12 982 pg/ml (180-914) H D 08/20/16 17:10 Serum Folate 21 ng/ml (3.1-17.5) H 08/20/16 17:10 PTH Intact 65 pg/mL (15-65) 08/26/16 07:05 Urine Color Yellow 08/20/16 03:30 Urine Appearance Slcloudy 08/20/16 03:30 Urine pH 5.0 (5.0-8.0) 08/20/16 03:30 Ur Specific [place] 1.016 (1.001-1.035) 08/20/16 03:30 Urine Protein 2+ (NEGATIVE) H 08/20/16 03:30 Urine Glucose (UA) Negative (NEGATIVE) 08/20/16 03:30 Urine Ketones Negative (NEGATIVE) 08/20/16 03:30 Urine Blood Negative (NEGATIVE) 08/20/16 03:30 Urine Nitrite Negative (NEGATIVE) 08/20/16 03:30 Urine Bilirubin Negative (NEGATIVE) 08/20/16 03:30 Urine Urobilinogen Negative E.U./dl (0.2-1.0) 08/20/16 03:30 Ur Leukocyte Esterase Trace (NEGATIVE) H 08/20/16 03:30 Urine RBC 11 /hpf (0-3) 08/20/16 03:30 Urine WBC 10 /hpf (3-5) 08/20/16 03:30 Ur Epithelial Cells Rare /hpf (FEW) 08/20/16 03:30 Urine Bacteria Rare /hpf (NONE SEEN) 08/20/16 03:30 Hyaline Casts 11 /lpf 08/20/16 03:30 Urine Mucus Rare 08/20/16 03:30 U Random Total Protein 91 mg/dl (5-11.9) H 08/20/16 03:00 Ur Random Urea Nitrogn 483 mg/dL 08/20/16 03:00 Urine Creatinine 99.2 mg/dL 08/20/16 03:00 Stool Occult Blood Negative (NEGATIVE) 08/19/16 21:00 Random Vancomycin 12.53 ug/ml 08/30/16 09:50 Opiates Screen Positive ng/ml (BLMUHT=811) 08/20/16 03:30 Methadone Screen Negative ng/ml (NTQYES=162) 08/20/16 03:30 Barbiturate Screen Negative ng/ml (WDCEXO=656) 08/20/16 03:30 Phencyclidine Screen Negative ng/ml (CUTOFF=25) 08/20/16 03:30 Ur Amphetamines Screen Negative ng/ml (NGZXZY=349) 08/20/16 03:30 MDMA (Ecstasy) Screen Negative ng/ml (TQPFYC=421) 08/20/16 03:30 Benzodiazepines Screen Negative ng/ml (DORFUE=042) 08/20/16 03:30 Cocaine Screen Negative ng/ml (VLXGUN=206) 08/20/16 03:30 U Marijuana (THC) Screen Negative ng/ml (CUTOFF=50) 08/20/16 03:30 Alcohol, Quantitative < 5.0 mg/dl (0-5) 08/19/16 20:40 IgG Cancelled 08/21/16 05:17 IgA Cancelled 08/21/16 05:17 IgM Cancelled 08/21/16 05:17 JULIANNE M-Jose Cancelled 08/21/16 05:17 Rheumatoid Factor < 10.0 IU/mL (0-15) 08/21/16 05:17 Free [place] LC, Quant Cancelled 08/21/16 05:17 Free Lambda LC, Quant Cancelled 08/21/16 05:17 Free [place]/Lambda Ratio Cancelled 08/21/16 05:17 HIV 1&2 Antibody Screen Negative 08/21/16 14:30 HIV P24 Antigen Negative 08/21/16 14:30 Blood Type B POSITIVE 09/01/16 09:25 Antibody Screen Negative 09/01/16 09:25 Direct Antiglob Test Positive (NEGATIVE) H 08/20/16 17:10 Crossmatch See Detail 09/01/16 09:25 IMP Heart failure (symptomatic with orthopnea and PND) markedly elevated B-Natriuretic Peptide 45674.77 pg/ml (5-125) is not explained by ckd alone r/o cardiac ischemia, especially in light of severe anemia CKD- stable so far Cardiorenal syndrome Hyperkalemia Anemia may be multifactorial- (chronic disease, renal failure and recent blood losses) unclear if he needs iron supplementation- elevated ferritin is misleading in context of osteomyelitis, a transferrin saturation would be helpful Plan- treat k increase furosemide dose for degree of kidney dysfunction- 60mg ivp daily weights consider add ADRIAN (aranesp or Procrit) discussed with dr huynh
[2016-09-02] MEDS ORDERED: traZODone HCL 50 MG TABLET (FP) ONE (20:43)
[2016-09-02] MEDS: traZODone HCL 100 MG TABLET (FP) PO SCH (22:06)
[2016-09-02] MEDS: MIRTAZAPINE 15 MG TABLET (FP) PO SCH (22:07)
[2016-09-03] MEDS: METRONIDAZOLE 500 MG PREMIXED 100 ML IVPB SCH ×2 (01:09→09:21)
[2016-09-03 06:36] LABS: MCH 25.9 pg (25.7-33.7); MCHC 32.8 g/dl (32.0-35.9); MEAN CELL VOLUME 79.1 fl (80-96); MEAN PLT VOLUME 7.5 fl (7.5-11.1); PLATELET COUNT 316 K/MM3 (134-434); RDW 25.5 % (11.9-15.9); WHITE BLOOD COUNT 8.2 K/mm3 (4.0-10.0)
--- NOTE | 2016-09-03 06:52 | PN ---
Physical Exam: SUBJECTIVE: Patient seen and examined by me at bedside. Patient is laying flat on the bed and reports he was able to sleep throughout the night while laying flat. When asked how he is feeling he reports he feels " so and so." Patient states his breathing is much better and does not feel as congested as yesterday. Otherwise, patient denies chest pain, palpitations, shortness of breath, fever, chills, nausea, vomiting. OBJECTIVE: Vital Signs Period Temp Pulse Resp BP Sys/Gutierrez Pulse Ox Last 24 Hr 97.5 F-98.0 F 69-76 18-20 139-168/81-99 94-95 GENERAL: The patient is awake, alert, and fully oriented, in no acute distress. LUNGS: Crackles throughout lung bases bilaterally and anteriorly. HEART: Regular rate and rhythm, S1, S2 without murmur, rub or gallop. ABDOMEN: Soft, nontender, nondistended, no guarding, no rebound tenderness EXTREMITIES: 1+ pitting edema in LLE and trace pitting edema in RLE. Left metatarsal amputation with gauze wrapped around, Wound Vac placed Laboratory Results - last 24 hr 09/02/16 09/02/16 09/02/16 06:00 06:00 06:00 WBC 9.1 RBC 2.79 L Hgb 7.2 L Hct 21.9 L MCV 78.6 L MCHC 32.7 RDW 25.4 H Plt Count 324 MPV 8.0 Sodium 143 Potassium 5.7 H Chloride 111 H Carbon Dioxide 24 Anion Gap 8 BUN 65 H Creatinine 2.5 H Creat Clearance w eGFR 26.48 POC Glucometer Random Glucose 97 Calcium 7.7 L Phosphorus 5.8 H Total Bilirubin 0.3 AST 14 L ALT 19 Alkaline Phosphatase 124 H B-Natriuretic Peptide 35906.77 H Total Protein 7.3 Albumin 1.8 L 09/02/16 09/02/16 09/02/16 12:13 17:49 20:27 WBC RBC Hgb Hct MCV MCHC RDW Plt Count MPV Sodium Potassium Chloride Carbon Dioxide Anion Gap BUN Creatinine Creat Clearance w eGFR POC Glucometer 273 196 214 Random Glucose Calcium Phosphorus Total Bilirubin AST ALT Alkaline Phosphatase B-Natriuretic Peptide Total Protein Albumin 09/03/16 05:12 WBC RBC Hgb Hct MCV MCHC RDW Plt Count MPV Sodium Potassium Chloride Carbon Dioxide Anion Gap BUN Creatinine Creat Clearance w eGFR POC Glucometer 93 Random Glucose Calcium Phosphorus Total Bilirubin AST ALT Alkaline Phosphatase B-Natriuretic Peptide Total Protein Albumin Active Medications Generic Name Dose Route Start Last Admin Trade Name Tessa PRN Reason Stop Dose Admin Albuterol Sulfate 2 puff 08/31/16 10:24 Ventolin Hfa Inhaler - IH Q4H PRN WHEEZING Albuterol/Ipratropium 1 amp 08/31/16 22:00 09/02/16 22:26 Duoneb - NEB 1 amp BID IGGY Administration Amlodipine Besylate 10 mg 09/01/16 10:00 09/02/16 09:17 Norvasc - PO 10 mg DAILY IGGY Administration Ascorbic Acid 500 mg 09/01/16 10:00 09/02/16 09:17 Vitamin C - PO 500 mg DAILY IGGY Administration Calcium Acetate 1,334 mg 08/31/16 12:00 09/02/16 17:43 Phoslo - PO 1,334 mg TIDCM IGGY Administration Ceftriaxone Sodium 2 gm 09/01/16 10:00 09/02/16 09:32 Rocephin 2gm Ivpb (Pre-Docked) IVPB 2 gm DAILY IGGY Administration Protocol Doxazosin Mesylate 4 mg 09/01/16 10:00 09/02/16 09:18 Cardura - PO 4 mg DAILY IGGY Administration Duloxetine HCl 30 mg 09/01/16 10:00 09/02/16 09:17 Cymbalta - PO 30 mg DAILY IGGY Administration Ferrous Sulfate 325 mg 09/01/16 10:00 09/02/16 09:17 Feosol - PO 325 mg DAILY IGGY Administration Folic Acid 1 mg 09/01/16 10:00 09/02/16 09:16 Folic Acid - PO 1 mg DAILY IGGY Administration Furosemide 40 mg 09/01/16 10:00 09/02/16 09:17 Lasix - PO 40 mg DAILY IGGY Administration Metronidazole 100 mls @ 100 mls/hr 08/31/16 18:00 09/03/16 01:09 Flagyl 500mg Premixed Ivpb - IVPB 100 mls/hr Q8H-IV IGGY Administration Insulin Aspart 1 vial 08/31/16 11:00 09/02/16 17:51 Novolog Vial Sliding Scale - SQ 2 unit TIDAC IGGY Administration Protocol Insulin Detemir 20 units 08/31/16 22:00 09/02/16 22:07 Levemir Vial SQ 20 units BID@0700,2200 IGGY Administration Methyl Salicylate 1 applic 08/31/16 22:00 09/02/16 22:14 Sterling-Greer - TP 1 applic BID IGGY Administration Metoprolol Tartrate 50 mg 09/01/16 10:00 09/02/16 22:07 Lopressor - PO 50 mg BID IGGY Administration Mirtazapine 30 mg 08/31/16 22:00 09/02/16 22:07 Remeron - PO 30 mg HS IGGY Administration Miscellaneous 1 each 08/31/16 10:24 Duragesic Patch Waste TD PRN PRN PAIN Morphine Sulfate 2 mg 08/31/16 09:49 Morphine Injection - IVPUSH 09/03/16 09:50 [id number] PRN PAIN Oxycodone HCl 10 mg 08/31/16 10:24 09/02/16 20:13 Roxicodone - PO 10 mg Q6H PRN Administration PAIN Pantoprazole Sodium 20 mg 09/01/16 10:00 09/02/16 09:17 Protonix - PO 20 mg DAILY IGGY Administration Pregabalin 100 mg 08/31/16 22:00 09/02/16 22:07 Lyrica - PO 100 mg BID IGGY Administration Sodium Bicarbonate 650 mg 09/01/16 10:00 09/02/16 09:17 Sodium Bicarbonate - PO 650 mg DAILY IGGY Administration Trazodone HCl 300 mg 08/31/16 22:00 09/02/16 22:06 Desyrel - PO 300 mg HS IGGY Administration Zinc Sulfate 220 mg 09/01/16 10:00 09/02/16 09:16 Orazinc - PO 220 mg DAILY IGGY Administration ASSESSMENT/PLAN: Patient is a 60 year old male with a PMHx of DM with nephropathy and neuropathy s/p left metatarsal amputation, HTN, CKD who presented after a syncopal episode with loss of consciousness and head trauma. Patient was found to have a hemoglobin of 3.7 and WBC of 26.1. Patient admitted for further monitoring and management. Patient was transfused with a total of 10 PRBC since admission and had two debridements of the left foot. Patient then had Wound VAC placed. Patient then began having dyspnea with orthopnea and repeat chest x-ray revealed fluid overload. Patient currently being diuresed with Lasix. Syncope secondary to Acute on Chronic Anemia -Total of 10 PRBC's transfused since admission and EPO on 08/29 -Hemoglobin and hematocrit today 7.2/21.9 -Transfuse PRBC if hemoglobin falls below 7.0 -Continue to monitor daily CBC -No colonoscopy or EGD as per GI -Heme/Onc consult appreciated. Sepsis Secondary to Osteomyelitis- improving -MRI revealed osteomyelitis of left lower extremity -Afebrile -S/P debridement 08/27/16 and 08/31/16 -Continue Ceftriaxone 2gm daily day #6 and Flagyl 500mg Q8H day #6 -Wound cultures growing beta hemolytic strep group G -Wound VAC done over weekend -Spoke to IR on PICC line insertion and would rather have a tunneled catheter instead due to patient being diabetic with FROYLAN -Continue to trend CBC and ESR Acute Hypoxic Respiratory failure -Patient dyspneic over the weekend with crackles throughout lung bases -Chest X-ray today revealed worsening congestion with possible infiltrate -Patient receiving daily Lasix 40mg but will need to monitor creatinine. -ECHO on admission showed normal EF -Continue with 2L NC Acute on chronic renal failure: -Creatinine increased to 2.7 today likely due to Lasix -Renal US showing bilateral echogenic kidneys: this relates to chronic kidney disease -Renal consulted HTN -Continue Metoprolol 25mg BID -Norsvac 10mg dailyy -Diovan held due to FROYLAN Hyperkalemia -Today 4.8 -Continue to trend -maintain low K diet Hypophosphatemia -Phoslo with meals TID DM II -Levemir 22 units BID -Insulin sliding scale -BGM F/E/N -On no fluids -Electrolytes wnl -Diabetic/Sodium controlled diet Prophylaxis -SCD's for DVT Disposition -Patient dyspneic and found to have fluid overload on CXR this morning. Will continue to diurese. Visit type - Emergency Visit Emergency Visit: Yes ED Registration Date: 08/19/16 Care time: The patient presented to the Emergency Department on the above date and was hospitalized for further evaluation of their emergent condition. - New Patient This patient is new to me today: No - Critical Care Critical Care patient: No
[2016-09-03 07:18] LABS: ALBUMIN 1.8 g/dl (3.4-5.0); BILIRUBIN,TOTAL 0.3 mg/dL (0.2-1.0); CALCIUM 7.7 mg/dL (8.5-10.1); COCKROFT - GAULT 40.13; CREATININE 2.7 mg/dL (0.7-1.3); TOT PROT 7.3 g/dl (6.4-8.2)
[2016-09-03] MEDS: INSULIN DETEMIR 100 UNITS/ML MDV SQ SCH ×2 (09:19→22:57)
[2016-09-03] MEDS: CALCIUM ACETATE 667 MG CAPSULE (FP) PO SCH ×3 (09:19→19:00)
[2016-09-03] MEDS: INSULIN SLIDING SCALE (NOVOLOG) 1 VIAL SQ SCH ×3 (09:19→17:59)
[2016-09-03] MEDS: METHYL SALICYLATE/MENTHOL OINT 30 GM TUBE TP SCH ×2 (09:20→22:48)
[2016-09-03] MEDS: METOPROLOL TARTRATE 25 MG TABLET (FP) PO SCH ×2 (09:22→22:46)
[2016-09-03] MEDS: SODIUM BICARBONATE 650 MG TABLET PO SCH (09:22)
[2016-09-03] MEDS: FOLIC ACID 1 MG TABLET (FP) PO SCH (09:22)
[2016-09-03] MEDS: PREGABALIN 50 MG CAPSULE PO SCH ×2 (09:22→22:46)
[2016-09-03] MEDS: cefTRIAXone 2 GM/100 ML BAG (PRE-DOCKED) IVPB SCH (09:22)
[2016-09-03] MEDS: amLODIPine BESYLATE 10 MG TABLET (FP) PO SCH (09:22)
[2016-09-03] MEDS: DULoxetine HCL 30 MG CAPSULE.DR (FP) PO SCH (09:22)
[2016-09-03] MEDS: ASCORBIC ACID 500 MG TABLET (FP) PO SCH (09:23)
[2016-09-03] MEDS: FERROUS SO4 325 MG TABLET (FP) PO SCH (09:23)
[2016-09-03] MEDS: FUROSEMIDE 40 MG TABLET (FP) PO SCH (09:23)
[2016-09-03] MEDS: PANTOPRAZOLE 20 MG TABLET (FP) PO SCH (09:23)
[2016-09-03] MEDS: ZINC SULFATE 220 MG CAPSULE (FP) PO SCH (09:33)
[2016-09-03] MEDS: oxyCODONE HCL 5 MG TABLET PO PRN ×2 (09:33→22:47)
[2016-09-03] MEDS: DOXAZOSIN MESYLATE 4 MG TABLET PO SCH (09:33)
[2016-09-03] MEDS ORDERED: PICC LINE 8 ML FLUSH PROTOCOL IVPUSH PRN (09:35)
--- NOTE | 2016-09-03 09:46 | PN ---
Physical Exam: SUBJECTIVE: Patient seen and examined c/o shortness of breath that started last night, on @L NC , + cough with clear sputum production. Nose not improve with sitting up. Denies fever, chills, chest pain, palpitations, dizziness, leg swelling. Did not was to eat breakfast this am , due to sob. OBJECTIVE: Vital Signs Period Temp Pulse Resp BP Sys/Gutierrez Pulse Ox Last 24 Hr 97.5 F-98.0 F 69-74 18-20 139-163/81-98 94 GENERAL: The patient is laying flat, short of breath, HEAD: Normal with no signs of trauma. EYES: PERRL, extraocular movements intact, sclera anicteric, conjunctiva clear. No ptosis. ENT: Ears normal, nares patent, oropharynx clear without exudates, moist mucous membranes. NECK: Trachea midline, full range of motion, supple. LUNGS: Poor inspiration , very course breath sounds, scattered rhonchi HEART: Regular rate and rhythm, S1, S2 without murmur, rub or gallop. ABDOMEN: Soft, nontender, nondistended, normoactive bowel sounds, no guarding, no rebound, no hepatosplenomegaly, no masses. EXTREMITIES: 2+ pulses, warm, well-perfused, no edema. LLE wound clean dressing with drain/wound vac in place; NEUROLOGICAL: Cranial nerves II through XII grossly intact. Normal speech, gait not observed. PSYCH: Normal mood, normal affect. SKIN: Warm, dry, normal turgor, no rashes or lesions noted CBC, BMP 09/03/16 05:36 09/03/16 05:36 Active Medications Generic Name Dose Route Start Last Admin Trade Name Kashifq PRN Reason Stop Dose Admin Albuterol Sulfate 2 puff 08/31/16 10:24 Ventolin Hfa Inhaler - IH Q4H PRN WHEEZING Albuterol/Ipratropium 1 amp 08/31/16 22:00 09/02/16 22:26 Duoneb - NEB 1 amp BID IGGY Administration Amlodipine Besylate 10 mg 09/01/16 10:00 09/03/16 09:22 Norvasc - PO 10 mg DAILY IGGY Administration Ascorbic Acid 500 mg 09/01/16 10:00 09/03/16 09:23 Vitamin C - PO 500 mg DAILY IGGY Administration Calcium Acetate 1,334 mg 08/31/16 12:00 09/03/16 09:19 Phoslo - PO 1,334 mg TIDCM IGGY Administration Ceftriaxone Sodium 2 gm 09/01/16 10:00 09/03/16 09:22 Rocephin 2gm Ivpb (Pre-Docked) IVPB 2 gm DAILY IGGY Administration Protocol Doxazosin Mesylate 4 mg 09/01/16 10:00 09/03/16 09:33 Cardura - PO 4 mg DAILY IGGY Administration Duloxetine HCl 30 mg 09/01/16 10:00 09/03/16 09:22 Cymbalta - PO 30 mg DAILY IGGY Administration Ferrous Sulfate 325 mg 09/01/16 10:00 09/03/16 09:23 Feosol - PO 325 mg DAILY IGGY Administration Folic Acid 1 mg 09/01/16 10:00 09/03/16 09:22 Folic Acid - PO 1 mg DAILY IGGY Administration Furosemide 40 mg 09/01/16 10:00 09/03/16 09:23 Lasix - PO 40 mg DAILY IGGY Administration IV Flush 8 ml 09/03/16 09:35 Picc Line Flush IVPUSH PRN PRN Protocol Insulin Aspart 1 vial 08/31/16 11:00 09/03/16 09:19 Novolog Vial Sliding Scale - SQ Not Given TIDAC COUNTS INCLUDE 234 BEDS AT THE [facility] Protocol Insulin Detemir 20 units 08/31/16 22:00 09/03/16 09:19 Levemir Vial SQ Not Given BID@0700,2200 IGGY Methyl Salicylate 1 applic 08/31/16 22:00 09/03/16 09:20 Sterling-Greer - TP 1 applic BID IGGY Administration Metoprolol Tartrate 50 mg 09/01/16 10:00 09/03/16 09:22 Lopressor - PO 50 mg BID IGGY Administration Metronidazole 500 mg 09/03/16 10:00 Flagyl - PO TID IGGY Mirtazapine 30 mg 08/31/16 22:00 09/02/16 22:07 Remeron - PO 30 mg HS IGGY Administration Miscellaneous 1 each 08/31/16 10:24 Duragesic Patch Waste TD PRN PRN PAIN Morphine Sulfate 2 mg 08/31/16 09:49 Morphine Injection - IVPUSH 09/03/16 09:50 [id number] PRN PAIN Oxycodone HCl 10 mg 08/31/16 10:24 09/03/16 09:33 Roxicodone - PO 10 mg Q6H PRN Administration PAIN Pantoprazole Sodium 20 mg 09/01/16 10:00 09/03/16 09:23 Protonix - PO 20 mg DAILY IGGY Administration Pregabalin 100 mg 08/31/16 22:00 09/03/16 09:22 Lyrica - PO 100 mg BID IGGY Administration Sodium Bicarbonate 650 mg 09/01/16 10:00 09/03/16 09:22 Sodium Bicarbonate - PO 650 mg DAILY IGGY Administration Trazodone HCl 300 mg 08/31/16 22:00 09/02/16 22:06 Desyrel - PO 300 mg HS IGGY Administration Zinc Sulfate 220 mg 09/01/16 10:00 09/03/16 09:33 Orazinc - PO 220 mg DAILY IGGY Administration Microbiology 08/27/16 18:50 Foot - Left Plantar Gram Stain - Final 08/27/16 18:50 Foot - Left Plantar Wound Culture - Final 08/27/16 18:50 Foot - Left Dorsum Gram Stain - Final 08/27/16 18:50 Foot - Left Dorsum Wound Culture - Final Beta Hem Streptococcus Group G 08/27/16 18:50 Foot - Left Heel Wound Culture - Final NO GROWTH OF AEROBIC ORGANISMS AFTER 48 HOURS INCUBATION 08/22/16 05:35 Blood - Peripheral Venous Blood Culture - Final NO GROWTH AFTER 5 DAYS INCUBATION 08/22/16 05:30 Blood - Peripheral Venous Blood Culture - Final NO GROWTH AFTER 5 DAYS INCUBATION 08/19/16 22:20 Blood - Peripheral Venous Blood Culture - Final Staphylococcus Epidermidis#2 Staphylococcus Epidermidis Staphylococcus Epidermidis#3 08/21/16 21:20 Foot - Left Instep Gram Stain - Final 08/21/16 21:20 Foot - Left Instep Wound Culture - Final Beta Hem Streptococcus Group G 08/19/16 22:20 Blood - Peripheral Venous Blood Culture - Final Beta Hem Streptococcus Group G Staphylococcus Epidermidis 08/21/16 03:00 Abscess Gram Stain - Final 08/21/16 03:00 Abscess Wound Culture - Final Beta Hem Streptococcus Group G 08/20/16 07:40 Urine - Urine - Catheterized Urine Culture - Final NO GROWTH OBTAINED ASSESSMENT/PLAN: Pt is a 60 yo M with PMHx of DM, HTN, diabetic neuropathy with left foot amputation, and CKD who presents to the ED s/p syncopal episode from standing position with +LOC and +head trauma. Pt was found to have a Hgb of 3.7 and WBC of 26.1 upon presentation. S/P multiple PRBCs -Sepsis due to osteomylelitis L foot -Acute on chronic CD -Hyperkalemia -hyperphosphtemia -HTN #sepsis secondary to osteomyelitis: s/p debridement 08/27 and 08/31 -white count, trending down; afebrile -wound culutre 08/27 -left dorsum: +beta hemolytic strep Group G -left heel: negative -left plantar negative -MRI +osteomyelitis; -old sensitivities noted from previous infection -Dr Galvan ; I&D; with bone glue therapy; if treatment fail, will proceed with transtibial amputation -switch IF flagyl to PO (day 4); cont IV ceftriaxone (day 4) #shortness of breath: -very congested pulm exam -cont NC -repeat CXR -corrine gregory Problem List - Problems (1) Chronic renal insufficiency, stage III (moderate) Code(s): N18.3 - CHRONIC KIDNEY DISEASE, STAGE 3 (MODERATE) (2) 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 Code(s): E11.9 - TYPE 2 DIABETES MELLITUS WITHOUT COMPLICATIONS (3) Diabetic neuropathy Code(s): E11.40 - TYPE 2 DIABETES MELLITUS WITH DIABETIC NEUROPATHY, UNSP (4) Foot infection Code(s): L08.9 - LOCAL INFECTION OF THE SKIN AND SUBCUTANEOUS TISSUE, UNSP (5) GERD (gastroesophageal reflux disease) Code(s): K21.9 - GASTRO-ESOPHAGEAL REFLUX DISEASE WITHOUT ESOPHAGITIS (6) HTN (hypertension) Code(s): I10 - ESSENTIAL (PRIMARY) HYPERTENSION (7) Osteomyelitis Code(s): M86.9 - OSTEOMYELITIS, UNSPECIFIED Visit type - Emergency Visit Emergency Visit: Yes ED Registration Date: 08/19/16 Care time: The patient presented to the Emergency Department on the above date and was hospitalized for further evaluation of their emergent condition. - New Patient This patient is new to me today: No - Critical Care Critical Care patient: No
--- NOTE | 2016-09-03 10:01 | PN ---
Progress Note (short form) - Note Progress Note: awake and alert, c/o SOB, has had all weekend, strted on lasix please see residents not for full details s/p bone biopsy 08/27 s/p further debridement 08/31 Vital Signs Period Temp Pulse Resp BP Sys/Gutierrez Pulse Ox Last 24 Hr 97.5 F-98.0 F 69-74 18-20 139-163/81-98 94 cor-rrr lungs bilateral rhonchi, occasionl wheeze abd soft, nt ext dressing/vac left leg CBC, BMP 09/03/16 05:36 09/03/16 05:36 Microbiology 08/27/16 18:50 Foot - Left Plantar Gram Stain - Final 08/27/16 18:50 Foot - Left Plantar Wound Culture - Final 08/27/16 18:50 Foot - Left Dorsum Gram Stain - Final 08/27/16 18:50 Foot - Left Dorsum Wound Culture - Final Beta Hem Streptococcus Group G 08/27/16 18:50 Foot - Left Heel Wound Culture - Final NO GROWTH OF AEROBIC ORGANISMS AFTER 48 HOURS INCUBATION 08/22/16 05:35 Blood - Peripheral Venous Blood Culture - Final NO GROWTH AFTER 5 DAYS INCUBATION 08/22/16 05:30 Blood - Peripheral Venous Blood Culture - Final NO GROWTH AFTER 5 DAYS INCUBATION 08/19/16 22:20 Blood - Peripheral Venous Blood Culture - Final Staphylococcus Epidermidis#2 Staphylococcus Epidermidis Staphylococcus Epidermidis#3 08/21/16 21:20 Foot - Left Instep Gram Stain - Final 08/21/16 21:20 Foot - Left Instep Wound Culture - Final Beta Hem Streptococcus Group G 08/19/16 22:20 Blood - Peripheral Venous Blood Culture - Final Beta Hem Streptococcus Group G Staphylococcus Epidermidis 08/21/16 03:00 Abscess Gram Stain - Final 08/21/16 03:00 Abscess Wound Culture - Final Beta Hem Streptococcus Group G 08/20/16 07:40 Urine - Urine - Catheterized Urine Culture - Final NO GROWTH OBTAINED TTE no vegetation a/p bacteremia- group G strep/staph epi foot abscess s/p debridement Osteomyelitis s/p bone biopsy- group G strep is the pathogen, anemia feli/ckd diabetes plan ceftriaxone 2 grams daily and po flagyl 500 tid for total 6 weeks sov- repeat CXRAY, primary service contacted to f/u
[2016-09-03] MEDS: ALBUTEROL SO4 2.5/IPRATROPIUM 0.5 INH SOL 3 ML VIAL.NEB. NEB SCH ×2 (10:50→22:11)
--- NOTE | 2016-09-03 12:01 | PN ---
Teaching Attending Note Name of Resident: Marlena Bello ATTENDING PHYSICIAN STATEMENT I saw and evaluated the patient. I reviewed the resident's note and discussed the case with the resident. I agree with the resident's findings and plan as documented. SUBJECTIVE:states he had SOB in the evening but feeling better today. denies CP , SOB,fever, chills, cough, orthopnea, N/V/C/D OBJECTIVE: Last Vital Signs Temp Pulse Resp BP Pulse Ox 97.7 F 69 19 152/95 94 L 09/03/16 09:37 09/03/16 09:37 09/03/16 09:37 09/03/16 09:37 09/02/16 21:00 General NAD CV S1 S2 RRR no murmur/rub/gallop Lungs Crackles L base no wheezing Abdomen soft NT/ND Extremities trace pitting edema RLE. 1+ pitting edema LLE. wound vac applied to LLE ASSESSMENT AND PLAN: 60yo M with PMH HTH, DM, Peripheral neuropathy, OM of L foot s/p amputation presented to the ER and was admitted for further evaluation of their emergent condition 1. Symptomatic anemia- anemia of chronic disease due to sepsis. s/p 10 units PRBC this admission. received epo 5/. additional unit given yesterday for total of 10 will watch closely. protein studies sent and pending. hematology on board. 2. Sepsis due to L foot OM- s/p bone bx. s/p debridement yesterday. wound vac now placed. on Ceftriaxone/flagyl. will need PICC line and 6 weeks of abx. podiatry on board. pain control 3. Hyperkalemia- likely in setting of FROYLAN. resolved. s/p multiple doses of kayexylate. monitor 4. Acute hypoxoc respiratory failure- continues to have some volume overload. will give additional lasix 40mg IVP. diuresis with caution given rising kidney function. echo done on admission with normal EF. encourage pt to get OOB to chair to mobilize fluid since he has been mostly bedbound. CXR taken this AM. will f/u. 5. Acute on CKD- slight uptrend in Cr likely medicaition induced. will monitor on bicarb. nephrology on board. 6. hyperphosphatemia- likely due to kidney failure. improved. on phoslo. 7. diabetes- A1c 7.6. controlled. cont levemir BID and iss. diabetic/renal diet 8. HTN- above goal. increase metoprolol to 50mg BID. monitor 9. DVT ppx- SCD 10.was planned for d/c today but in light of acute hypoxia will hold for today and monitor. if improved possible tomorrow
--- NOTE | 2016-09-03 12:17 | PN ---
Progress Note, Physician History of Present Illness: Patient with long history of osteomyelitis of the LLL is followed after incision and drainage of abscess, then bone biopsies, and finally osseous debridement of the greater tarsus with antibiotic infused Stimulans insertion. and is to be evaluated for management of osteomyelitis of all osseous structures of the foot and the distal leg as well as wound care. - Current Medication List Current Medications: Active Medications Albuterol Sulfate (Ventolin Hfa Inhaler -) 2 puff IH Q4H PRN PRN Reason: WHEEZING Albuterol/Ipratropium (Duoneb -) 1 amp NEB BID [facility] Last Admin: 09/02/16 22:26 Dose: 1 amp Amlodipine Besylate (Norvasc -) 10 mg PO DAILY [facility] Last Admin: 09/03/16 09:22 Dose: 10 mg Ascorbic Acid (Vitamin C -) 500 mg PO DAILY [facility] Last Admin: 09/03/16 09:23 Dose: 500 mg Calcium Acetate (Phoslo -) 1,334 mg PO TIDCM [facility] Last Admin: 09/03/16 09:19 Dose: 1,334 mg Ceftriaxone Sodium (Rocephin 2gm Ivpb (Pre-Docked)) 2 gm IVPB DAILY IGGY PRN Reason: Protocol Last Admin: 09/03/16 09:22 Dose: 2 gm Doxazosin Mesylate (Cardura -) 4 mg PO DAILY [facility] Last Admin: 09/03/16 09:33 Dose: 4 mg Duloxetine HCl (Cymbalta -) 30 mg PO DAILY IGGY Last Admin: 09/03/16 09:22 Dose: 30 mg Ferrous Sulfate (Feosol -) 325 mg PO DAILY [facility] Last Admin: 09/03/16 09:23 Dose: 325 mg Folic Acid (Folic Acid -) 1 mg PO DAILY [facility] Last Admin: 09/03/16 09:22 Dose: 1 mg Furosemide (Lasix -) 40 mg PO DAILY [facility] Last Admin: 09/03/16 09:23 Dose: 40 mg IV Flush (Picc Line Flush) 8 ml IVPUSH PRN PRN PRN Reason: Protocol Insulin Aspart (Novolog Vial Sliding Scale -) 1 vial SQ TIDAC IGGY PRN Reason: Protocol Last Admin: 09/03/16 09:19 Dose: Not Given Insulin Detemir (Levemir Vial) 20 units SQ BID@0700,2200 [facility] Last Admin: 09/03/16 09:19 Dose: Not Given Methyl Salicylate (Sterling-Greer -) 1 applic TP BID [facility] Last Admin: 09/03/16 09:20 Dose: 1 applic Metoprolol Tartrate (Lopressor -) 50 mg PO BID [facility] Last Admin: 09/03/16 09:22 Dose: 50 mg Metronidazole (Flagyl -) 500 mg PO TID [facility] Mirtazapine (Remeron -) 30 mg PO HS [facility] Last Admin: 09/02/16 22:07 Dose: 30 mg Miscellaneous (Duragesic Patch Waste) 1 each TD PRN PRN PRN Reason: PAIN Oxycodone HCl (Roxicodone -) 10 mg PO Q6H PRN PRN Reason: PAIN Last Admin: 09/03/16 09:33 Dose: 10 mg Pantoprazole Sodium (Protonix -) 20 mg PO DAILY [facility] Last Admin: 09/03/16 09:23 Dose: 20 mg Pregabalin (Lyrica -) 100 mg PO BID [facility] Last Admin: 09/03/16 09:22 Dose: 100 mg Sodium Bicarbonate (Sodium Bicarbonate -) 650 mg PO DAILY [facility] Last Admin: 09/03/16 09:22 Dose: 650 mg Trazodone HCl (Desyrel -) 300 mg PO HS [facility] Last Admin: 09/02/16 22:06 Dose: 300 mg Zinc Sulfate (Orazinc -) 220 mg PO DAILY [facility] Last Admin: 09/03/16 09:33 Dose: 220 mg - Objective Vital Signs: Vital Signs Temperature 36.5 C 09/03/16 09:37 Pulse Rate 69 09/03/16 09:37 Respiratory Rate 19 09/03/16 09:37 Blood Pressure 152/95 09/03/16 09:37 O2 Sat by Pulse Oximetry (%) 94 L 09/02/16 21:00 Constitutional: Yes: Well Nourished, No Distress, Calm Respiratory: Yes: Wheezes Extremities: Yes: Amputation Edema: LUE: 1+, RUE: Trace Peripheral Pulses: Left Doralis Pedis: 2+, Right Dorsalis Pedis: 2+ Integumentary: Yes: Incision, Laceration Wound/Incision: Yes: Dressing Dry and Intact, Dressing Removed, Reddened ( minimal slough- antibiotic beads (Stimulans intact)) Psychiatric: Yes: Alert, Oriented Additional Findings/Remarks: Patient resting comfortably but is wheezing and has been told he has pulmonary congestion so MAY NOT be ready for SNF transfer today. Wound clean- after [employer] Wound VAC removed. Wound bed about 20% slough and will need further soft tissue debridement but now no osseous structures are exposed -the NWPT is therefore functioning well.. Antibiotic beads left, used Surgicel removed. Reapplied [employer] Wound VAC at 125 mm Hg continuous- no leaks. This is a f/u from the wound debridement (0 days) global) Total time with patient, discussion with Phoebe and Meenu. case assembler exceeded 25 minutes. Leukocytosis resolved! Spoke with Meenu. GasperKathy the case assembler about f/u wound care with myself at [facility] every Saturday at 13h00 (1 PM) for wound care and probable hyperbarric O [address] [facility] [address] [place] [address] Building 1st floor [phone] Labs: CBC, BMP 09/03/16 05:36 09/03/16 05:36 INR, PTT INR 1.26 (0.82-1.09) H 08/22/16 08:40 Fibrinogen 355.0 mg/dL (238-498) 08/20/16 17:10 - ....Imaging X-ray: Report Reviewed (Radio opaque Stimulans visible at osseous focus of infection at the calcaneous and the sub talar articulation.), Image Reviewed MRI: Report Reviewed
--- NOTE | 2016-09-03 12:52 | PATH ---
Surgical Pathology Report Patient Name: MARIAJOSE MALAVE [facility]. Rec. #: [id number] /Age/Gender: 1955 (Age: 60) / M Account: [id number] Location: 4 PEDS/ADOL Taken: 08/31/2016 Received: 08/31/2016 Reported: 09/03/2016 Physicians: Aroldo Galvan M.D. Specimen(s) Received DEBRIDED BONE & TISSUE LEFT LOWER EXTREMITY Clinical History Ulcer left lower extremity Final Diagnosis BONE AND SOFT TISSUE, LEFT LOWER EXTREMITY, EXCISIONAL DEBRIDEMENT: SOFT TISSUE WITH ACUTE NECROTIZING INFLAMMATION AND GANGRENOUS NECROSIS; INFLAMED GRANULATION TISSUE. FRAGMENTS OF UNDERLYING BONE WITH CHRONIC OSTEOMYELITIS. Electronically Signed Alex Sherwood M.D. Gross Description Received in formalin labeled "debrided bone and tissue left lower extremity" is a 3.8 x 3.3 x 0.6 cm aggregate of rae fragments of skin, soft tissue and bone. The specimen is entirely submitted in 4 cassettes, following decalcification. /08/31/2016 [facility]08/31/2016
[2016-09-03] MEDS: metroNIDAZOLE 250 MG TABLET PO SCH ×3 (14:13→22:47)
--- NOTE | 2016-09-03 17:21 | PN ---
Progress Note, Physician Chief Complaint: The patient lying in bed. Feels very weak. Had wound debridement on Saturday. Sat on the side of the bed for some time today. No chest pain. Still short of breath. Good urine out put. On PO Lasix. - Current Medication List Current Medications: Active Medications Albuterol Sulfate (Ventolin Hfa Inhaler -) 2 puff IH Q4H PRN PRN Reason: WHEEZING Albuterol/Ipratropium (Duoneb -) 1 amp NEB BID [facility] Last Admin: 09/03/16 10:50 Dose: 1 amp Amlodipine Besylate (Norvasc -) 10 mg PO DAILY [facility] Last Admin: 09/03/16 09:22 Dose: 10 mg Ascorbic Acid (Vitamin C -) 500 mg PO DAILY [facility] Last Admin: 09/03/16 09:23 Dose: 500 mg Calcium Acetate (Phoslo -) 1,334 mg PO TIDCM [facility] Last Admin: 09/03/16 12:16 Dose: 1,334 mg Ceftriaxone Sodium (Rocephin 2gm Ivpb (Pre-Docked)) 2 gm IVPB DAILY [facility] PRN Reason: Protocol Last Admin: 09/03/16 09:22 Dose: 2 gm Doxazosin Mesylate (Cardura -) 4 mg PO DAILY [facility] Last Admin: 09/03/16 09:33 Dose: 4 mg Duloxetine HCl (Cymbalta -) 30 mg PO DAILY [facility] Last Admin: 09/03/16 09:22 Dose: 30 mg Ferrous Sulfate (Feosol -) 325 mg PO DAILY [facility] Last Admin: 09/03/16 09:23 Dose: 325 mg Folic Acid (Folic Acid -) 1 mg PO DAILY [facility] Last Admin: 09/03/16 09:22 Dose: 1 mg Furosemide (Lasix -) 40 mg PO DAILY [facility] Last Admin: 09/03/16 09:23 Dose: 40 mg IV Flush (Picc Line Flush) 8 ml IVPUSH PRN PRN PRN Reason: Protocol Insulin Aspart (Novolog Vial Sliding Scale -) 1 vial SQ TIDAC [facility] PRN Reason: Protocol Last Admin: 09/03/16 11:13 Dose: Not Given Insulin Detemir (Levemir Vial) 20 units SQ BID@0700,2200 [facility] Last Admin: 09/03/16 09:19 Dose: Not Given Methyl Salicylate (Sterling-Greer -) 1 applic TP BID [facility] Last Admin: 09/03/16 09:20 Dose: 1 applic Metoprolol Tartrate (Lopressor -) 50 mg PO BID [facility] Last Admin: 09/03/16 09:22 Dose: 50 mg Metronidazole (Flagyl -) 500 mg PO TID [facility] Last Admin: 09/03/16 14:31 Dose: 500 mg Mirtazapine (Remeron -) 30 mg PO HS [facility] Last Admin: 09/02/16 22:07 Dose: 30 mg Miscellaneous (Duragesic Patch Waste) 1 each TD PRN PRN PRN Reason: PAIN Oxycodone HCl (Roxicodone -) 10 mg PO Q6H PRN PRN Reason: PAIN Last Admin: 09/03/16 09:33 Dose: 10 mg Pantoprazole Sodium (Protonix -) 20 mg PO DAILY [facility] Last Admin: 09/03/16 09:23 Dose: 20 mg Pregabalin (Lyrica -) 100 mg PO BID [facility] Last Admin: 09/03/16 09:22 Dose: 100 mg Sodium Bicarbonate (Sodium Bicarbonate -) 650 mg PO DAILY [facility] Last Admin: 09/03/16 09:22 Dose: 650 mg Trazodone HCl (Desyrel -) 300 mg PO HS [facility] Last Admin: 09/02/16 22:06 Dose: 300 mg Zinc Sulfate (Orazinc -) 220 mg PO DAILY [facility] Last Admin: 09/03/16 09:33 Dose: 220 mg - Objective Vital Signs: Vital Signs Temperature 97.6 F 09/03/16 14:00 Pulse Rate 68 09/03/16 14:00 Respiratory Rate 20 09/03/16 16:37 Blood Pressure 146/85 09/03/16 14:00 O2 Sat by Pulse Oximetry (%) 95 09/03/16 16:37 Constitutional: Yes: Calm Eyes: Yes: Conjunctiva Clear HENT: Yes: Atraumatic Neck: Yes: Supple Cardiovascular: Yes: Regular Rate and Rhythm, S2 Respiratory: Yes: Regular, Diminished Gastrointestinal: Yes: Normal Bowel Sounds, Soft Edema: Yes (Dressings in place) Wound/Incision: Yes: Dressing Dry and Intact Neurological: Yes: Alert, Oriented Labs: CBC, BMP 09/03/16 05:36 09/03/16 05:36 INR, PTT INR 1.26 (0.82-1.09) H 04/26/17 08:40 Fibrinogen 355.0 mg/dL (238-498) 08/20/16 17:10 Problem List - Problems (1) FROYLAN (acute kidney injury) Code(s): N17.9 - ACUTE KIDNEY FAILURE, UNSPECIFIED (2) Hyperkalemia Code(s): E87.5 - HYPERKALEMIA (3) Severe anemia Code(s): D64.9 - ANEMIA, UNSPECIFIED (4) S/P amputation Code(s): Z89.9 - ACQUIRED ABSENCE OF LIMB, UNSPECIFIED (5) Hyperglycemia Code(s): R73.9 - HYPERGLYCEMIA, UNSPECIFIED (6) Osteoarthritis Code(s): M19.90 - UNSPECIFIED OSTEOARTHRITIS, UNSPECIFIED SITE (7) 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 Code(s): E11.9 - TYPE 2 DIABETES MELLITUS WITHOUT COMPLICATIONS (8) Diabetic neuropathy Code(s): E11.40 - TYPE 2 DIABETES MELLITUS WITH DIABETIC NEUROPATHY, UNSP (9) Foot infection Code(s): L08.9 - LOCAL INFECTION OF THE SKIN AND SUBCUTANEOUS TISSUE, UNSP (10) HTN (hypertension) Code(s): I10 - ESSENTIAL (PRIMARY) HYPERTENSION Assessment/Plan Patient with 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, Peripheral Vascular disease, foot ulcers, with bloody drainage, Patient still quite anemic. The clinical weakness is possibly related to the profound anemia. ( Hgb 7.2) The Renal functions have deteriorated in the interim... possibly from hemodynamic factors and renal hypoperfusion. Should consider PRBC Transfusion to Hgb > 9 Gm/ dL Will monitor the Renal functions with you. Aniyah Chaudhry MD
[2016-09-03] MEDS ORDERED: FUROSEMIDE 40 MG/4 ML INJECTABLE VIAL IVPUSH ONE (21:23)
[2016-09-03] MEDS ORDERED: traZODone HCL 50 MG TABLET (FP) ONE (22:41)
[2016-09-03] MEDS: MIRTAZAPINE 15 MG TABLET (FP) PO SCH (22:46)
[2016-09-03] MEDS: traZODone HCL 100 MG TABLET (FP) PO SCH (22:48)
[2016-09-04] MEDS ORDERED: PT OWN MED DRAWER 7, Y5N ONE (05:55)
[2016-09-04] MEDS ORDERED: ALBUTEROL SO4 0.083% IH SOL 2.5 MG/3 ML VIAL.NEB. NEB ONE (06:03)
--- NOTE | 2016-09-04 06:44 | HOSP ---
Subjective - Review of Symptoms Events since last encounter: patient sob Subjective: Patient sob despite albuterol neb, on venti mask sat low 91% General: No: Night Sweats, Malaise HEENT: No: Head Aches, Visual Changes Pulmonary: Yes: Dyspnea. No: Cough Cardiovascular: No: Chest Pain, Palpitations Gastrointestinal: No: Nausea, Vomiting, Abdominal Pain, Diarrhea Musculoskeletal: No: No Symptoms Neurological: No: Weakness, Numbness Physical Examination Vital Signs: Vital Signs Temperature 97.7 F 09/04/16 06:06 Pulse Rate 74 09/04/16 06:06 Respiratory Rate 18 09/04/16 06:06 Blood Pressure 176/106 09/04/16 06:06 O2 Sat by Pulse Oximetry (%) 95 09/03/16 22:00 Constitutional: No: No Distress, Calm Eyes: Yes: Conjunctiva Clear, PERRL HENT: Yes: Atraumatic, Normocephalic Neck: Yes: Supple Cardiovascular: Yes: Regular Rate and Rhythm, JVD, S1, S2 Respiratory: Yes: Rales (bibasilar), SOB Gastrointestinal: Yes: Normal Bowel Sounds, Soft Labs: CBC, BMP 09/03/16 05:36 09/03/16 05:36 Hospitalist Encounter Assessment: SOB due to volume overload in setting of recent transfusions -cxr shows bibasilar congestion -give lasix 40 IV -AM CXR Visit type - Emergency Visit Emergency Visit: Yes ED Registration Date: 08/19/16 Care time: The patient presented to the Emergency Department on the above date and was hospitalized for further evaluation of their emergent condition. - New Patient This patient is new to me today: Yes Date on this admission: 09/04/16 - Critical Care Critical Care patient: No
[2016-09-04] MEDS: INSULIN DETEMIR 100 UNITS/ML MDV SQ SCH ×2 (06:45→21:52)
[2016-09-04] MEDS: INSULIN SLIDING SCALE (NOVOLOG) 1 VIAL SQ SCH ×3 (06:45→17:29)
[2016-09-04] MEDS: metroNIDAZOLE 250 MG TABLET PO SCH ×3 (06:50→21:47)
[2016-09-04 07:40] LABS: ALBUMIN 2.1 g/dl (3.4-5.0); BILIRUBIN,TOTAL 0.3 mg/dL (0.2-1.0); CALCIUM 7.9 mg/dL (8.5-10.1); COCKROFT - GAULT 41.15; CREATININE 2.6 mg/dL (0.7-1.3)
--- NOTE | 2016-09-04 07:47 | PN ---
Physical Exam: SUBJECTIVE: Patient seen and examined by me at bedside. Overnight events noted. Patient had shortness of breath despite albuterol treatment. Venti mask placed and patient was saturating in the 90's with a dose of Lasix 40mg IV given. Patient remains short of breath and a stat lasix 80mg IV ordered. Repeat chest x-ray this morning reveals worsening congestion. Will continue to administer Lasix. Otherwise, patient denies fever, chills, nausea, vomiting, chest pain, palpitations. OBJECTIVE: Vital Signs Period Temp Pulse Resp BP Sys/Gutierrez Pulse Ox Last 24 Hr 97.6 F-97.7 F 68-79 18-20 146-176/85-106 95-95 GENERAL: The patient is awake, alert, and fully oriented, in no acute distress. LUNGS: Crackles throughout lung bases bilaterally and anteriorly. HEART: Regular rate and rhythm, S1, S2 without murmur, rub or gallop. ABDOMEN: Soft, nontender, nondistended, no guarding, no rebound tenderness EXTREMITIES: 1+ pitting edema in LLE and trace pitting edema in RLE. Left metatarsal amputation with gauze wrapped around, Wound Vac placed Laboratory Results - last 24 hr 09/01/16 09/03/16 09/03/16 17:51 05:36 05:36 Sodium 144 Potassium 4.8 Chloride 111 H Carbon Dioxide 27 Anion Gap 6 L BUN 63 H Creatinine 2.7 H Creat Clearance w eGFR 24.23 POC Glucometer 47 Random Glucose 70 L D Calcium 7.7 L Transferrin 142 L Total Bilirubin 0.3 AST 16 ALT 21 Alkaline Phosphatase 119 H Total Protein 7.3 Albumin 1.8 L 09/03/16 09/03/16 09/03/16 10:07 16:58 22:53 Sodium Potassium Chloride Carbon Dioxide Anion Gap BUN Creatinine Creat Clearance w eGFR POC Glucometer 73 204 249 Random Glucose Calcium Transferrin Total Bilirubin AST ALT Alkaline Phosphatase Total Protein Albumin 09/04/16 05:43 Sodium Potassium Chloride Carbon Dioxide Anion Gap BUN Creatinine Creat Clearance w eGFR POC Glucometer 229 Random Glucose Calcium Transferrin Total Bilirubin AST ALT Alkaline Phosphatase Total Protein Albumin Active Medications Generic Name Dose Route Start Last Admin Trade Name Freq PRN Reason Stop Dose Admin Albuterol Sulfate 2 puff 08/31/16 10:24 Ventolin Hfa Inhaler - IH Q4H PRN WHEEZING Albuterol/Ipratropium 1 amp 08/31/16 22:00 09/03/16 22:11 Duoneb - NEB 1 amp BID IGGY Administration Amlodipine Besylate 10 mg 09/01/16 10:00 09/03/16 09:22 Norvasc - PO 10 mg DAILY IGGY Administration Ascorbic Acid 500 mg 09/01/16 10:00 09/03/16 09:23 Vitamin C - PO 500 mg DAILY IGGY Administration Calcium Acetate 1,334 mg 08/31/16 12:00 09/03/16 19:00 Phoslo - PO Not Given TIDCM IGGY Ceftriaxone Sodium 2 gm 09/01/16 10:00 09/03/16 09:22 Rocephin 2gm Ivpb (Pre-Docked) IVPB 2 gm DAILY IGGY Administration Protocol Doxazosin Mesylate 4 mg 09/01/16 10:00 09/03/16 09:33 Cardura - PO 4 mg DAILY IGGY Administration Duloxetine HCl 30 mg 09/01/16 10:00 09/03/16 09:22 Cymbalta - PO 30 mg DAILY IGGY Administration Ferrous Sulfate 325 mg 09/01/16 10:00 09/03/16 09:23 Feosol - PO 325 mg DAILY IGGY Administration Folic Acid 1 mg 09/01/16 10:00 09/03/16 09:22 Folic Acid - PO 1 mg DAILY IGGY Administration Furosemide 40 mg 09/01/16 10:00 09/03/16 09:23 Lasix - PO 40 mg DAILY IGGY Administration IV Flush 8 ml 09/03/16 09:35 Picc Line Flush IVPUSH PRN PRN Protocol Insulin Aspart 1 vial 08/31/16 11:00 09/04/16 06:45 Novolog Vial Sliding Scale - SQ Not Given TIDAC [facility] Protocol Insulin Detemir 20 units 08/31/16 22:00 09/04/16 06:45 Levemir Vial SQ Not Given BID@0700,2200 IGGY Methyl Salicylate 1 applic 08/31/16 22:00 09/03/16 22:48 Sterling-Greer - TP 1 applic BID IGGY Administration Metoprolol Tartrate 50 mg 09/01/16 10:00 09/03/16 22:46 Lopressor - PO 50 mg BID IGGY Administration Metronidazole 500 mg 09/03/16 10:00 09/04/16 06:50 Flagyl - PO 500 mg TID IGGY Administration Mirtazapine 30 mg 08/31/16 22:00 09/03/16 22:46 Remeron - PO 30 mg HS IGGY Administration Miscellaneous 1 each 08/31/16 10:24 Duragesic Patch Waste TD PRN PRN PAIN Oxycodone HCl 10 mg 08/31/16 10:24 09/03/16 22:47 Roxicodone - PO 10 mg Q6H PRN Administration PAIN Pantoprazole Sodium 20 mg 09/01/16 10:00 09/03/16 09:23 Protonix - PO 20 mg DAILY IGGY Administration Pregabalin 100 mg 08/31/16 22:00 09/03/16 22:46 Lyrica - PO 100 mg BID IGGY Administration Sodium Bicarbonate 650 mg 09/01/16 10:00 09/03/16 09:22 Sodium Bicarbonate - PO 650 mg DAILY IGGY Administration Trazodone HCl 300 mg 08/31/16 22:00 09/03/16 22:48 Desyrel - PO Not Given HS IGGY Zinc Sulfate 220 mg 09/01/16 10:00 09/03/16 09:33 Orazinc - PO 220 mg DAILY IGGY Administration ASSESSMENT/PLAN: Patient is a 60 year old male with a PMHx of DM with nephropathy and neuropathy s/p left metatarsal amputation, HTN, CKD who presented after a syncopal episode with loss of consciousness and head trauma. Patient was found to have a hemoglobin of 3.7 and WBC of 26.1. Patient admitted for further monitoring and management. Patient was transfused with a total of 10 PRBC since admission and had two debridements of the left foot. Patient then had Wound VAC placed. Patient then began having dyspnea with orthopnea and repeat chest x-ray revealed fluid overload. Patient currently being diuresed with Lasix. Syncope secondary to Acute on Chronic Anemia -Total of 10 PRBC's transfused since admission and EPO on 08/29 -Hemoglobin and hematocrit today 7.6 -Transfuse PRBC if hemoglobin falls below 7.0 -Continue to monitor daily CBC -No colonoscopy or EGD as per GI -Heme/Onc consult appreciated. Sepsis Secondary to Osteomyelitis- improving -MRI revealed osteomyelitis of left lower extremity -Afebrile -S/P debridement 08/27/16 and 08/31/16 -Continue Ceftriaxone 2gm daily day #7 and Flagyl 500mg Q8H day #7 -Wound cultures growing beta hemolytic strep group G -Wound VAC done over weekend -Tunneled cath to be done -Continue to trend CBC and ESR Acute Hypoxic Respiratory failure -Patient dyspneic last night with crackles throughout lung bases -Chest X-ray today revealed worsening congestion with possible infiltrate -Received 80mg IV lasix and another dose of 80mg IV lasix this evening, as per nephrology -ECHO on admission showed normal EF -Now on BIPAP -ID switch Ceftriaxone to Zosyn for HAP Acute on chronic renal failure: -Creatinine 2.6 today -Renal US showing bilateral echogenic kidneys: this relates to chronic kidney disease -Renal consulted HTN -Continue Metoprolol 25mg BID -Norsvac 10mg daily -Diovan held due to FROYLAN Hyperkalemia -Today 5.0 -Continue to trend -maintain low K diet Hypophosphatemia -Phoslo with meals TID DM II -Levemir 22 units BID -Insulin sliding scale -BGM F/E/N -On no fluids -Electrolytes wnl -Diabetic/Sodium controlled diet Prophylaxis -SCD's for DVT Disposition -Patient dyspneic and found to have fluid overload on CXR this morning. Will continue to diurese. Visit type - Emergency Visit Emergency Visit: Yes ED Registration Date: 08/19/16 Care time: The patient presented to the Emergency Department on the above date and was hospitalized for further evaluation of their emergent condition. - New Patient This patient is new to me today: No - Critical Care Critical Care patient: No
[2016-09-04] MEDS: CALCIUM ACETATE 667 MG CAPSULE (FP) PO SCH ×3 (08:11→17:30)
[2016-09-04 08:13] LABS: MCH 25.8 pg (25.7-33.7); MCHC 32.6 g/dl (32.0-35.9); MEAN CELL VOLUME 79.1 fl (80-96); MEAN PLT VOLUME 8.2 fl (7.5-11.1); PLATELET COUNT 360 K/MM3 (134-434); RDW 25.9 % (11.9-15.9); WHITE BLOOD COUNT 11.2 K/mm3 (4.0-10.0)
[2016-09-04] MEDS ORDERED: FUROSEMIDE 40 MG/4 ML INJECTABLE VIAL IVPUSH ONE (08:55)
[2016-09-04] MEDS: ALBUTEROL SO4 2.5/IPRATROPIUM 0.5 INH SOL 3 ML VIAL.NEB. NEB SCH ×2 (09:15→22:00)
--- NOTE | 2016-09-04 09:48 | PN ---
Physical Exam: SUBJECTIVE: Patient seen and examined with BIPAP this am due to acute respiratory distress last night, patient admits to weakness not not feeling well overall with sweets, sob. Denies fever, no chills, chest pain, still with cough with thick white sputum production. OBJECTIVE: Vital Signs Period Temp Pulse Resp BP Sys/Gutierrez Pulse Ox Last 24 Hr 97.6 F-97.7 F 68-79 18-20 146-176/85-106 95-95 GENERAL: The patient is awake, on BiPAP, lethargic LUNGS: decreased Breath sounds equal, mild crackles at bases HEART: Regular rate and rhythm, S1, S2 without murmur, rub or gallop. ABDOMEN: Soft, nontender, nondistended, normoactive bowel sounds, no guarding, no rebound, no hepatosplenomegaly, no masses. EXTREMITIES: 2+ pulses, warm, well-perfused, no edema. Left foot infection with wound vac, B/L LE 1+ edema NEUROLOGICAL: Cranial nerves II through XII grossly intact. Normal speech, gait not observed. PSYCH: Normal mood, normal affect. SKIN: Warm, dry, normal turgor, no rashes or lesions noted CBC, BMP 09/04/16 06:10 09/04/16 06:10 Active Medications Generic Name Dose Route Start Last Admin Trade Name Freq PRN Reason Stop Dose Admin Albuterol Sulfate 2 puff 08/31/16 10:24 Ventolin Hfa Inhaler - IH Q4H PRN WHEEZING Albuterol/Ipratropium 1 amp 08/31/16 22:00 09/03/16 22:11 Duoneb - NEB 1 amp BID IGGY Administration Amlodipine Besylate 10 mg 09/01/16 10:00 09/03/16 09:22 Norvasc - PO 10 mg DAILY IGGY Administration Ascorbic Acid 500 mg 09/01/16 10:00 09/03/16 09:23 Vitamin C - PO 500 mg DAILY IGGY Administration Calcium Acetate 1,334 mg 08/31/16 12:00 09/03/16 19:00 Phoslo - PO Not Given TIDCM IGGY Ceftriaxone Sodium 2 gm 09/01/16 10:00 09/03/16 09:22 Rocephin 2gm Ivpb (Pre-Docked) IVPB 2 gm DAILY IGGY Administration Protocol Doxazosin Mesylate 4 mg 09/01/16 10:00 09/03/16 09:33 Cardura - PO 4 mg DAILY IGGY Administration Duloxetine HCl 30 mg 09/01/16 10:00 09/03/16 09:22 Cymbalta - PO 30 mg DAILY IGGY Administration Ferrous Sulfate 325 mg 09/01/16 10:00 09/03/16 09:23 Feosol - PO 325 mg DAILY IGGY Administration Folic Acid 1 mg 09/01/16 10:00 09/03/16 09:22 Folic Acid - PO 1 mg DAILY IGGY Administration Furosemide 40 mg 09/01/16 10:00 09/03/16 09:23 Lasix - PO 40 mg DAILY IGGY Administration IV Flush 8 ml 09/03/16 09:35 Picc Line Flush IVPUSH PRN PRN Protocol Insulin Aspart 1 vial 08/31/16 11:00 09/04/16 06:45 Novolog Vial Sliding Scale - SQ Not Given TIDAC IGGY Protocol Insulin Detemir 20 units 08/31/16 22:00 09/04/16 06:45 Levemir Vial SQ Not Given BID@0700,2200 [facility] Methyl Salicylate 1 applic 08/31/16 22:00 09/03/16 22:48 Sterling-Greer - TP 1 applic BID IGGY Administration Metoprolol Tartrate 50 mg 09/01/16 10:00 09/03/16 22:46 Lopressor - PO 50 mg BID IGGY Administration Metronidazole 500 mg 09/03/16 10:00 09/04/16 06:50 Flagyl - PO 500 mg TID IGGY Administration Mirtazapine 30 mg 08/31/16 22:00 09/03/16 22:46 Remeron - PO 30 mg HS IGGY Administration Miscellaneous 1 each 08/31/16 10:24 Duragesic Patch Waste TD PRN PRN PAIN Oxycodone HCl 10 mg 08/31/16 10:24 09/03/16 22:47 Roxicodone - PO 10 mg Q6H PRN Administration PAIN Pantoprazole Sodium 20 mg 09/01/16 10:00 09/03/16 09:23 Protonix - PO 20 mg DAILY IGGY Administration Pregabalin 100 mg 08/31/16 22:00 09/03/16 22:46 Lyrica - PO 100 mg BID IGGY Administration Sodium Bicarbonate 650 mg 09/01/16 10:00 09/03/16 09:22 Sodium Bicarbonate - PO 650 mg DAILY IGGY Administration Trazodone HCl 300 mg 08/31/16 22:00 09/03/16 22:48 Desyrel - PO Not Given HS IGGY Zinc Sulfate 220 mg 09/01/16 10:00 09/03/16 09:33 Orazinc - PO 220 mg DAILY IGGY Administration Microbiology 08/27/16 18:50 Foot - Left Plantar Gram Stain - Final 08/27/16 18:50 Foot - Left Plantar Wound Culture - Final 08/27/16 18:50 Foot - Left Dorsum Gram Stain - Final 08/27/16 18:50 Foot - Left Dorsum Wound Culture - Final Beta Hem Streptococcus Group G 08/27/16 18:50 Foot - Left Heel Wound Culture - Final NO GROWTH OF AEROBIC ORGANISMS AFTER 48 HOURS INCUBATION 08/22/16 05:35 Blood - Peripheral Venous Blood Culture - Final NO GROWTH AFTER 5 DAYS INCUBATION 08/22/16 05:30 Blood - Peripheral Venous Blood Culture - Final NO GROWTH AFTER 5 DAYS INCUBATION 08/19/16 22:20 Blood - Peripheral Venous Blood Culture - Final Staphylococcus Epidermidis#2 Staphylococcus Epidermidis Staphylococcus Epidermidis#3 08/21/16 21:20 Foot - Left Instep Gram Stain - Final 08/21/16 21:20 Foot - Left Instep Wound Culture - Final Beta Hem Streptococcus Group G 08/19/16 22:20 Blood - Peripheral Venous Blood Culture - Final Beta Hem Streptococcus Group G Staphylococcus Epidermidis 08/21/16 03:00 Abscess Gram Stain - Final 08/21/16 03:00 Abscess Wound Culture - Final Beta Hem Streptococcus Group G 08/20/16 07:40 Urine - Urine - Catheterized Urine Culture - Final NO GROWTH OBTAINED ASSESSMENT/PLAN: Pt is a 60 yo M with PMHx of DM, HTN, diabetic neuropathy with left foot amputation, and CKD who presents to the ED s/p syncopal episode from standing position with +LOC and +head trauma. Pt was found to have a Hgb of 3.7 and WBC of 26.1 upon presentation. S/P multiple PRBCs -Sepsis due to osteomylelitis L foot -Acute on chronic CD -Hyperkalemia -hyperphosphtemia -HTN #sob; increase white count -will d/c flagyl and ceftriaxone for now; start zosyn for broad spectrum , r/o HAP #sepsis secondary to osteomyelitis: s/p debridement 08/27 and 08/31 -white count,trending up; afebrile -will DC flagyl and ceftriaxon for; -start zosyn for braod spectrum to cover for HAP -wound culutres above -MRI +osteomyelitis; -old sensitivities noted from previous infection -Dr Galvan ; I&D; with bone glue therapy; if treatment fail, will proceed with transtibial amputation -switch back to flagyl ceftriaxone as outpatient #shortness of breath; most lieky secondary to congeestion volume overlad; r/o HAP: -BIPAP -repeat CXR -cont lasix -duonebs Problem List - Problems (1) Chronic renal insufficiency, stage III (moderate) Code(s): N18.3 - CHRONIC KIDNEY DISEASE, STAGE 3 (MODERATE) (2) 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 Code(s): E11.9 - TYPE 2 DIABETES MELLITUS WITHOUT COMPLICATIONS (3) Diabetic neuropathy Code(s): E11.40 - TYPE 2 DIABETES MELLITUS WITH DIABETIC NEUROPATHY, UNSP (4) Foot infection Code(s): L08.9 - LOCAL INFECTION OF THE SKIN AND SUBCUTANEOUS TISSUE, UNSP (5) GERD (gastroesophageal reflux disease) Code(s): K21.9 - GASTRO-ESOPHAGEAL REFLUX DISEASE WITHOUT ESOPHAGITIS (6) HTN (hypertension) Code(s): I10 - ESSENTIAL (PRIMARY) HYPERTENSION (7) Osteomyelitis Code(s): M86.9 - OSTEOMYELITIS, UNSPECIFIED Visit type - Emergency Visit Emergency Visit: Yes ED Registration Date: 08/19/16 Care time: The patient presented to the Emergency Department on the above date and was hospitalized for further evaluation of their emergent condition. - New Patient This patient is new to me today: No - Critical Care Critical Care patient: No
--- NOTE | 2016-09-04 10:17 | PN ---
Teaching Attending Note Name of Resident: Marlena Bello ATTENDING PHYSICIAN STATEMENT I saw and evaluated the patient. I reviewed the resident's note and discussed the case with the resident. I agree with the resident's findings and plan as documented. SUBJECTIVE: Patient feels tired and SOB. OBJECTIVE: Vital Signs Period Temp Pulse Resp BP Sys/Gutierrez Pulse Ox Last 24 Hr 97.6 F-97.7 F 68-79 18-20 146-176/85-106 95-95 HEART: S1S2, RRR LUNGS: Crackles at left base, rhonchi on right ABDOMEN: Soft, non-tender, non-distended, normal BS EXTREMITIES: Trace edema ASSESSMENT AND PLAN: This is a 60-year-old man with a history of HTH, type 2 DM, peripheral neuropathy, OM of left foot, left foot TMA who presented to the ER after a syncopal episode. 1. Sepsis secondary to left foot osteomyelitis - s/p bone biopsy 08/27, debridement 08/31 - Continue Unique Flagheydi 2. Symptomatic anemia secondary to sepsis - Transfused 10 units PRBCs this admission 3. Anemia secondary to chronic illness 4. Hyperkalemia - Improved 5. Acute hypoxic respiratory failure secondary to acute diastolic heart failure from fluid overload - Continue Lasix IV - BiPAP started 6. Acute kidney injury - Creatinine stable 7. Stage 4 CKD 8. Hyperphosphatemia - Continue PhosLo 9. Type 2 DM with peripheral neuropathy - Continue Levemir, Novolog sliding scale, Lyrica 10. HTN - Continue Lopressor, Norvasc, Lasix, Cardura
[2016-09-04] MEDS: cefTRIAXone 2 GM/100 ML BAG (PRE-DOCKED) IVPB SCH (11:05)
[2016-09-04] MEDS: PREGABALIN 50 MG CAPSULE PO SCH ×2 (11:09→21:47)
[2016-09-04] MEDS: FOLIC ACID 1 MG TABLET (FP) PO SCH (11:09)
[2016-09-04] MEDS: METOPROLOL TARTRATE 25 MG TABLET (FP) PO SCH ×2 (11:09→21:47)
[2016-09-04] MEDS: FERROUS SO4 325 MG TABLET (FP) PO SCH (11:10)
[2016-09-04] MEDS: amLODIPine BESYLATE 10 MG TABLET (FP) PO SCH (11:10)
[2016-09-04] MEDS: ASCORBIC ACID 500 MG TABLET (FP) PO SCH (11:10)
[2016-09-04] MEDS: DULoxetine HCL 30 MG CAPSULE.DR (FP) PO SCH (11:10)
[2016-09-04] MEDS: FUROSEMIDE 40 MG TABLET (FP) PO SCH (11:10)
[2016-09-04] MEDS: METHYL SALICYLATE/MENTHOL OINT 30 GM TUBE TP SCH ×2 (11:11→21:51)
[2016-09-04] MEDS: SODIUM BICARBONATE 650 MG TABLET PO SCH (11:12)
[2016-09-04] MEDS: PANTOPRAZOLE 20 MG TABLET (FP) PO SCH (11:12)
[2016-09-04] MEDS: DOXAZOSIN MESYLATE 4 MG TABLET PO SCH (11:12)
[2016-09-04] MEDS: ZINC SULFATE 220 MG CAPSULE (FP) PO SCH (11:12)
--- NOTE | 2016-09-04 11:57 | PN ---
Progress Note, Physician History of Present Illness: pulmonary events noted developed acute respiratory distress placed on bipap given lasix with clinical improvement - Current Medication List Current Medications: Active Medications Albuterol Sulfate (Ventolin Hfa Inhaler -) 2 puff IH Q4H PRN PRN Reason: WHEEZING Albuterol/Ipratropium (Duoneb -) 1 amp NEB BID [facility] Last Admin: 09/04/16 09:15 Dose: 1 amp Amlodipine Besylate (Norvasc -) 10 mg PO DAILY [facility] Last Admin: 09/04/16 11:10 Dose: 10 mg Ascorbic Acid (Vitamin C -) 500 mg PO DAILY [facility] Last Admin: 09/04/16 11:10 Dose: 500 mg Calcium Acetate (Phoslo -) 1,334 mg PO TIDCM [facility] Last Admin: 09/04/16 08:11 Dose: Not Given Ceftriaxone Sodium (Rocephin 2gm Ivpb (Pre-Docked)) 2 gm IVPB DAILY [facility] PRN Reason: Protocol Last Admin: 09/04/16 11:05 Dose: 2 gm Doxazosin Mesylate (Cardura -) 4 mg PO DAILY [facility] Last Admin: 09/04/16 11:12 Dose: 4 mg Duloxetine HCl (Cymbalta -) 30 mg PO DAILY [facility] Last Admin: 09/04/16 11:10 Dose: 30 mg Ferrous Sulfate (Feosol -) 325 mg PO DAILY [facility] Last Admin: 09/04/16 11:10 Dose: 325 mg Folic Acid (Folic Acid -) 1 mg PO DAILY [facility] Last Admin: 09/04/16 11:09 Dose: 1 mg Furosemide (Lasix -) 40 mg PO DAILY [facility] Last Admin: 09/04/16 11:10 Dose: Not Given IV Flush (Picc Line Flush) 8 ml IVPUSH PRN PRN PRN Reason: Protocol Insulin Aspart (Novolog Vial Sliding Scale -) 1 vial SQ TIDAC [facility] PRN Reason: Protocol Last Admin: 09/04/16 06:45 Dose: Not Given Insulin Detemir (Levemir Vial) 20 units SQ BID@0700,2200 [facility] Last Admin: 09/04/16 06:45 Dose: Not Given Methyl Salicylate (Sterling-Greer -) 1 applic TP BID [facility] Last Admin: 09/04/16 11:11 Dose: 1 applic Metoprolol Tartrate (Lopressor -) 50 mg PO BID [facility] Last Admin: 09/04/16 11:09 Dose: 50 mg Metronidazole (Flagyl -) 500 mg PO TID [facility] Last Admin: 09/04/16 06:50 Dose: 500 mg Mirtazapine (Remeron -) 30 mg PO HS [facility] Last Admin: 09/03/16 22:46 Dose: 30 mg Miscellaneous (Duragesic Patch Waste) 1 each TD PRN PRN PRN Reason: PAIN Oxycodone HCl (Roxicodone -) 10 mg PO Q6H PRN PRN Reason: PAIN Last Admin: 09/03/16 22:47 Dose: 10 mg Pantoprazole Sodium (Protonix -) 20 mg PO DAILY [facility] Last Admin: 09/04/16 11:12 Dose: 20 mg Pregabalin (Lyrica -) 100 mg PO BID [facility] Last Admin: 09/04/16 11:09 Dose: 100 mg Sodium Bicarbonate (Sodium Bicarbonate -) 650 mg PO DAILY [facility] Last Admin: 09/04/16 11:12 Dose: 650 mg Trazodone HCl (Desyrel -) 300 mg PO [facility] Last Admin: 09/03/16 22:48 Dose: Not Given Zinc Sulfate (Orazinc -) 220 mg PO DAILY [facility] Last Admin: 09/04/16 11:12 Dose: 220 mg - Objective Vital Signs: Vital Signs Temperature 97.7 F 09/04/16 06:06 Pulse Rate 74 09/04/16 10:00 Respiratory Rate 18 09/04/16 06:06 Blood Pressure 176/106 09/04/16 06:06 O2 Sat by Pulse Oximetry (%) 93 L 09/04/16 10:00 Constitutional: Yes: Well Nourished, Calm Eyes: Yes: WNL HENT: Yes: WNL Neck: Yes: WNL Cardiovascular: Yes: Regular Rate and Rhythm, S1, S2 Respiratory: Yes: Rales (bilateral rales 1/3 up) Gastrointestinal: Yes: Normal Bowel Sounds, Soft Extremities: Yes: Other (LEFT FOOT WRAPPED) Edema: Yes Labs: CBC, BMP 09/04/16 06:10 09/04/16 06:10 INR, PTT INR 1.26 (0.82-1.09) H 08/22/16 08:40 Fibrinogen 355.0 mg/dL (238-498) 08/20/16 17:10 - ....Imaging Chest X-ray: Report Reviewed, Image Reviewed (bilateral congestion) Problem List - Problems (1) FROYLAN (acute kidney injury) Code(s): N17.9 - ACUTE KIDNEY FAILURE, UNSPECIFIED (2) Severe anemia Code(s): D64.9 - ANEMIA, UNSPECIFIED (3) Hyperglycemia Code(s): R73.9 - HYPERGLYCEMIA, UNSPECIFIED (4) Osteoarthritis Code(s): M19.90 - UNSPECIFIED OSTEOARTHRITIS, UNSPECIFIED SITE (5) COPD with emphysema Code(s): J43.9 - EMPHYSEMA, UNSPECIFIED (6) Chronic renal insufficiency, stage III (moderate) Code(s): N18.3 - CHRONIC KIDNEY DISEASE, STAGE 3 (MODERATE) (7) 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 Code(s): E11.9 - TYPE 2 DIABETES MELLITUS WITHOUT COMPLICATIONS (8) Diabetic neuropathy Code(s): E11.40 - TYPE 2 DIABETES MELLITUS WITH DIABETIC NEUROPATHY, UNSP (9) GERD (gastroesophageal reflux disease) Code(s): K21.9 - GASTRO-ESOPHAGEAL REFLUX DISEASE WITHOUT ESOPHAGITIS (10) HTN (hypertension) Code(s): I10 - ESSENTIAL (PRIMARY) HYPERTENSION (11) Osteomyelitis Code(s): M86.9 - OSTEOMYELITIS, UNSPECIFIED (12) Acute hypoxemic respiratory failure Code(s): J96.01 - ACUTE RESPIRATORY FAILURE WITH HYPOXIA Assessment/Plan ASSESSMENT AND PLAN: Acute hypoxemic respiratory failure Fluid overload Syncope Anemia Left foot ulcer infection s/p debridement Gram Positive Bacteremia Sepsis Acute on Chronic Renal Failure Hyperkalemia DM (?) Nerve impingement causing symptoms Bipap o2 lasix f/u chest xray - Local wound care - Pain control - glucose control - PT/OT DR BAUM
--- NOTE | 2016-09-04 13:04 | PN ---
Progress Note (short form) - Note Progress Note: Renal Follow up for FROYLAN/CKD with Hyperkalemia Pt seen and examined at the bedside on BIPAP has sob off the mask s/p IV lasix this morning no fever or chills no chest pain Vital Signs Temperature 97.7 F 09/04/16 06:06 Pulse Rate 74 09/04/16 10:00 Respiratory Rate 18 09/04/16 06:06 Blood Pressure 176/106 09/04/16 06:06 O2 Sat by Pulse Oximetry (%) 93 L 09/04/16 10:00 Intake & Output 09/01/16 09/02/16 09/03/16 09/04/16 23:59 23:59 23:59 23:59 Intake Total 1400 1130 840 Output Total 4700 2900 1150 400 Balance -3300 -1770 -310 -400 Gen: NAD on BIPAP HEENT: No JVD CVS: RRR, No M/R Lungs: Dec BS throughout the lung [place]ton Abd: NT/ND Ext: 1-2+ edema in LE CBC, BMP 09/04/16 06:10 09/04/16 06:10 Current Medications Albuterol Sulfate (Ventolin Hfa Inhaler -) 2 puff IH Q4H PRN PRN Reason: WHEEZING Albuterol/Ipratropium (Duoneb -) 1 amp NEB BID [facility] Last Admin: 09/04/16 09:15 Dose: 1 amp Amlodipine Besylate (Norvasc -) 10 mg PO DAILY [facility] Last Admin: 09/04/16 11:10 Dose: 10 mg Ascorbic Acid (Vitamin C -) 500 mg PO DAILY [facility] Last Admin: 09/04/16 11:10 Dose: 500 mg Calcium Acetate (Phoslo -) 1,334 mg PO TIDCM [facility] Last Admin: 09/04/16 12:08 Dose: 1,334 mg Ceftriaxone Sodium (Rocephin 2gm Ivpb (Pre-Docked)) 2 gm IVPB DAILY [facility] PRN Reason: Protocol Last Admin: 09/04/16 11:05 Dose: 2 gm Doxazosin Mesylate (Cardura -) 4 mg PO DAILY [facility] Last Admin: 09/04/16 11:12 Dose: 4 mg Duloxetine HCl (Cymbalta -) 30 mg PO DAILY [facility] Last Admin: 09/04/16 11:10 Dose: 30 mg Ferrous Sulfate (Feosol -) 325 mg PO DAILY [facility] Last Admin: 09/04/16 11:10 Dose: 325 mg Folic Acid (Folic Acid -) 1 mg PO DAILY [facility] Last Admin: 09/04/16 11:09 Dose: 1 mg Furosemide (Lasix -) 40 mg PO DAILY [facility] Last Admin: 09/04/16 11:10 Dose: Not Given IV Flush (Picc Line Flush) 8 ml IVPUSH PRN PRN PRN Reason: Protocol Insulin Aspart (Novolog Vial Sliding Scale -) 1 vial SQ TIDAC [facility] PRN Reason: Protocol Last Admin: 09/04/16 12:07 Dose: 6 unit Insulin Detemir (Levemir Vial) 20 units SQ BID@0700,2200 [facility] Last Admin: 09/04/16 06:45 Dose: Not Given Methyl Salicylate (Sterling-Greer -) 1 applic TP BID [facility] Last Admin: 09/04/16 11:11 Dose: 1 applic Metoprolol Tartrate (Lopressor -) 50 mg PO BID [facility] Last Admin: 09/04/16 11:09 Dose: 50 mg Metronidazole (Flagyl -) 500 mg PO TID [facility] Last Admin: 09/04/16 06:50 Dose: 500 mg Mirtazapine (Remeron -) 30 mg PO [facility] Last Admin: 09/03/16 22:46 Dose: 30 mg Miscellaneous (Duragesic Patch Waste) 1 each TD PRN PRN PRN Reason: PAIN Oxycodone HCl (Roxicodone -) 10 mg PO Q6H PRN PRN Reason: PAIN Last Admin: 09/03/16 22:47 Dose: 10 mg Pantoprazole Sodium (Protonix -) 20 mg PO DAILY [facility] Last Admin: 09/04/16 11:12 Dose: 20 mg Pregabalin (Lyrica -) 100 mg PO BID [facility] Last Admin: 09/04/16 11:09 Dose: 100 mg Sodium Bicarbonate (Sodium Bicarbonate -) 650 mg PO DAILY [facility] Last Admin: 09/04/16 11:12 Dose: 650 mg Trazodone HCl (Desyrel -) 300 mg PO [facility] Last Admin: 09/03/16 22:48 Dose: Not Given Zinc Sulfate (Orazinc -) 220 mg PO DAILY [facility] Last Admin: 09/04/16 11:12 Dose: 220 mg A/P 60 year old Gentleman with PMhx of CKD (baseline unclear), Hypertension, IDDM, PVD who presented s/p syncopal episode and found to have acute Anemia with Hgb of 3.7 and BUN/Cr of 41/2.7 and K of 6.8. #FROYLAN -> CKD BUN/Cr with slight up trend no gross overall change no indication for [employer] pt is non-oliguric continue IV lasix for management of fluid overload #CHF/Fluid overload continue IV lasix s/p 80mg IV this am, will give additional 80mg IV this evening trend daily weights ECHO showed dilated LA but with preserved LV function #Hyperphosphatemia continue Phoslo with meals Miguel Jansen DO
[2016-09-04] MEDS ORDERED: FUROSEMIDE 100 MG/10 ML INJECTABLE VIAL IVPB ONE (16:00)
--- NOTE | 2016-09-04 17:13 | PN ---
Teaching Attending Note Name of Resident: Sis Barrett ATTENDING PHYSICIAN STATEMENT I saw and evaluated the patient. I reviewed the resident's note and discussed the case with the resident. I agree with the resident's findings and plan as documented. SUBJECTIVE: OBJECTIVE: ASSESSMENT AND PLAN: now on bipap with worsening cxray per nursing in/out- he has negative fluid balance will switch from rocephin to zosyn to cover for HAP diuresis per primary team willl need [facility] iv antibiotics as planned rocephin/flagyl for osteo of the foot
[2016-09-04] MEDS: PIPERACILLIN/TAZOB 3.375 GM/50 ML PRE-DOCKED IVPB SCH ×2 (17:29)
[2016-09-04 18:15] LABS: BASOPHIL 1.2 % (0-2.0); EOSINOPHIL 2.7 % (0-4.5); MCH 25.2 pg (25.7-33.7); MCHC 31.9 g/dl (32.0-35.9); MEAN CELL VOLUME 78.9 fl (80-96); MEAN PLT VOLUME 7.7 fl (7.5-11.1); NEUTROPHILS 77.7 % (42.8-82.8); PLATELET COUNT 355 K/MM3 (134-434); RDW 26.4 % (11.9-15.9); WHITE BLOOD COUNT 8.6 K/mm3 (4.0-10.0)
[2016-09-04 19:26] LABS: ANISOCYTOSIS 3+; HYPOCHROMIA 2+; TARGET CELLS 2+
[2016-09-04] MEDS ORDERED: traZODone HCL 50 MG TABLET (FP) ONE (21:32)
[2016-09-04] MEDS: MIRTAZAPINE 15 MG TABLET (FP) PO SCH (21:46)
[2016-09-04] MEDS: traZODone HCL 100 MG TABLET (FP) PO SCH (21:46)
[2016-09-04] MEDS: oxyCODONE HCL 5 MG TABLET PO PRN (21:47)
[2016-09-05 00:06] LABS: A/G RATIO 0.5 (0.7-1.7); ALBUMIN 2.1 g/dL (2.9-4.4); ALPHA-1-GLOBULIN 0.5 g/dL (0.0-0.4); BETA GLOBULIN 0.9 g/dL (0.7-1.3); GAMMA GLOBULIN 2.8 g/dL (0.4-1.8); GLOBULIN, TOTAL 5.2 g/dL (2.2-3.9); M-SPIKE Not Observed g/dL (Not Observed); TOTAL PROTEIN 7.3 g/dL (6.0-8.5)
[2016-09-05] MEDS: PIPERACILLIN/TAZOB 3.375 GM/50 ML PRE-DOCKED IVPB SCH ×3 (02:59→17:17)
[2016-09-05] MEDS: INSULIN SLIDING SCALE (NOVOLOG) 1 VIAL SQ SCH ×3 (06:11→17:19)
[2016-09-05] MEDS: metroNIDAZOLE 250 MG TABLET PO SCH ×3 (06:15→23:44)
[2016-09-05] MEDS: INSULIN DETEMIR 100 UNITS/ML MDV SQ SCH ×2 (06:15→23:52)
[2016-09-05 07:01] LABS: BASOPHIL 0.2 % (0-2.0); EOSINOPHIL 1.9 % (0-4.5); MCH 25.5 pg (25.7-33.7); MCHC 32.3 g/dl (32.0-35.9); MEAN CELL VOLUME 79.2 fl (80-96); MEAN PLT VOLUME 8.3 fl (7.5-11.1); NEUTROPHILS 91.8 % (42.8-82.8); PLATELET COUNT 340 K/MM3 (134-434); WHITE BLOOD COUNT 9.9 K/mm3 (4.0-10.0)
--- NOTE | 2016-09-05 07:46 | PN ---
Physical Exam: SUBJECTIVE: Patient seen and examined by me at bedside. Patient reports his breathing is better than yesterday but needed BIPAP last night. He is currently on 4L NC and with mild dyspnea. Patient urinating throughout the night with an output of >5 Liters in the last 24 hours. Will administer another dose of Lasix IV lasix today. Otherwise, patient denies fever, chills, nausea, vomiting , chest pain, paplpitations, abdominal pain. OBJECTIVE: Vital Signs Period Temp Pulse Resp BP Sys/Gutierrez Pulse Ox Last 24 Hr 96.7 F-98.4 F 67-82 18-20 133-161/86-96 93-95 GENERAL: The patient is awake, alert, and fully oriented, in no acute distress. LUNGS: Crackles throughout left lung bases (improved) and Rhonchi throughout right lung bases HEART: Regular rate and rhythm, S1, S2 without murmur, rub or gallop. ABDOMEN: Soft, nontender, nondistended, no guarding, no rebound tenderness EXTREMITIES: trace pitting edema in B/L LE. Left metatarsal amputation with gauze wrapped around, Wound Vac placed Laboratory Results - last 24 hr 08/20/16 09/01/16 09/04/16 17:10 09:25 06:10 WBC RBC Hgb Hct MCV MCHC RDW Plt Count MPV Neutrophils % Lymphocytes % Monocytes % Eosinophils % Basophils % Hypochromic-Microcytic Anisocytosis Target Cells Sodium 143 Potassium 5.0 Chloride 110 H Carbon Dioxide 26 Anion Gap 7 L BUN 66 H Creatinine 2.6 H Creat Clearance w eGFR 25.22 POC Glucometer Random Glucose 224 H D Calcium 7.9 L Total Bilirubin 0.3 AST 15 ALT 20 Alkaline Phosphatase 142 H Serum Total Protein 7.3 Total Protein 8.0 Albumin 2.1 L 2.1 L Globulin 5.2 H Albumin/Globulin Ratio 0.5 L Twqfx-9-Nxjvndnrt 0.5 H Eziea-0-Jewedvodm 1.0 Beta Globulins 0.9 Gamma Globulins 2.8 H IgG 2712 H IgA 374 IgM 93 JULIANNE M-Jose Not observed JULIANNE Comments Serum JULIANNE Interpret Comment: Blood Type B POSITIVE Antibody Screen Negative Crossmatch See Detail 09/04/16 09/04/16 09/04/16 06:10 11:15 17:27 WBC 11.2 H D RBC 2.95 L Hgb 7.6 L Hct 23.3 L MCV 79.1 L MCHC 32.6 RDW 25.9 H Plt Count 360 MPV 8.2 Neutrophils % Lymphocytes % Monocytes % Eosinophils % Basophils % Hypochromic-Microcytic Anisocytosis Target Cells Sodium Potassium Chloride Carbon Dioxide Anion Gap BUN Creatinine Creat Clearance w eGFR POC Glucometer 253 175 Random Glucose Calcium Total Bilirubin AST ALT Alkaline Phosphatase Serum Total Protein Total Protein Albumin Globulin Albumin/Globulin Ratio Orlfw-7-Cceddjpqw Btedr-7-Wcssrdwxp Beta Globulins Gamma Globulins IgG IgA IgM JULIANNE M-Jose JULIANNE Comments Serum JULIANNE Interpret Blood Type Antibody Screen Crossmatch 09/04/16 09/04/16 09/05/16 17:30 21:22 05:31 WBC 8.6 RBC 3.00 L Hgb 7.6 L Hct 23.7 L MCV 78.9 L MCHC 31.9 L RDW 26.4 H Plt Count 355 MPV 7.7 Neutrophils % 77.7 Lymphocytes % 11.4 D Monocytes % 7.0 Eosinophils % 2.7 D Basophils % 1.2 Hypochromic-Microcytic 2+ Anisocytosis 3+ Target Cells 2+ Sodium Potassium Chloride Carbon Dioxide Anion Gap BUN Creatinine Creat Clearance w eGFR POC Glucometer 249 96 Random Glucose Calcium Total Bilirubin AST ALT Alkaline Phosphatase Serum Total Protein Total Protein Albumin Globulin Albumin/Globulin Ratio Uwdlo-5-Cjknkwiyj Eshik-8-Zxigrcimf Beta Globulins Gamma Globulins IgG IgA IgM JULIANNE M-Jose JULIANNE Comments Serum JULIANNE Interpret Blood Type Antibody Screen Crossmatch Active Medications Generic Name Dose Route Start Last Admin Trade Name Freq PRN Reason Stop Dose Admin Albuterol Sulfate 2 puff 08/31/16 10:24 Ventolin Hfa Inhaler - IH Q4H PRN WHEEZING Albuterol/Ipratropium 1 amp 08/31/16 22:00 09/04/16 22:00 Duoneb - NEB 1 amp BID [facility] Administration Amlodipine Besylate 10 mg 09/01/16 10:00 09/04/16 11:10 Norvasc - PO 10 mg DAILY [facility] Administration Ascorbic Acid 500 mg 09/01/16 10:00 09/04/16 11:10 Vitamin C - PO 500 mg DAILY [facility] Administration Calcium Acetate 1,334 mg 08/31/16 12:00 09/04/16 17:30 Phoslo - PO 1,334 mg TIDCM [facility] Administration Doxazosin Mesylate 4 mg 09/01/16 10:00 09/04/16 11:12 Cardura - PO 4 mg DAILY [facility] Administration Duloxetine HCl 30 mg 09/01/16 10:00 09/04/16 11:10 Cymbalta - PO 30 mg DAILY [facility] Administration Ferrous Sulfate 325 mg 09/01/16 10:00 09/04/16 11:10 Feosol - PO 325 mg DAILY [facility] Administration Folic Acid 1 mg 09/01/16 10:00 09/04/16 11:09 Folic Acid - PO 1 mg DAILY [facility] Administration Furosemide 40 mg 09/01/16 10:00 09/04/16 11:10 Lasix - PO Not Given DAILY [facility] IV Flush 8 ml 09/03/16 09:35 Picc Line Flush IVPUSH PRN PRN Protocol Insulin Aspart 1 vial 08/31/16 11:00 09/05/16 06:11 Novolog Vial Sliding Scale - SQ Not Given TIDAC [facility] Protocol Insulin Detemir 20 units 08/31/16 22:00 09/05/16 06:15 Levemir Vial SQ Not Given BID@0700,2200 [facility] Methyl Salicylate 1 applic 08/31/16 22:00 09/04/16 21:51 Sterling-Greer - TP Not Given BID [facility] Metoprolol Tartrate 50 mg 09/01/16 10:00 09/04/16 21:47 Lopressor - PO 50 mg BID [facility] Administration Metronidazole 500 mg 09/03/16 10:00 09/05/16 06:15 Flagyl - PO 500 mg TID [facility] Administration Mirtazapine 30 mg 08/31/16 22:00 09/04/16 21:46 Remeron - PO 30 mg HS [facility] Administration Miscellaneous 1 each 08/31/16 10:24 Duragesic Patch Waste TD PRN PRN PAIN Oxycodone HCl 10 mg 08/31/16 10:24 09/04/16 21:47 Roxicodone - PO 10 mg Q6H PRN Administration PAIN Pantoprazole Sodium 20 mg 09/01/16 10:00 09/04/16 11:12 Protonix - PO 20 mg DAILY [facility] Administration Piperacillin Sod/Tazobactam Sod 3.375 gm 09/04/16 15:45 09/05/16 02:59 Zosyn 3.375gm Ivpb (Pre-Docked) IVPB 3.375 gm Q8H-IV [facility] Administration Protocol Pregabalin 100 mg 08/31/16 22:00 09/04/16 21:47 Lyrica - PO 100 mg BID [facility] Administration Sodium Bicarbonate 650 mg 09/01/16 10:00 09/04/16 11:12 Sodium Bicarbonate - PO 650 mg DAILY [facility] Administration Trazodone HCl 300 mg 08/31/16 22:00 09/04/16 21:46 Desyrel - PO 300 mg HS [facility] Administration Zinc Sulfate 220 mg 09/01/16 10:00 09/04/16 11:12 Orazinc - PO 220 mg DAILY [facility] Administration ASSESSMENT/PLAN: Patient is a 60 year old male with a PMHx of DM with nephropathy and neuropathy s/p left metatarsal amputation, HTN, CKD who presented after a syncopal episode with loss of consciousness and head trauma. Patient was found to have a hemoglobin of 3.7 and WBC of 26.1. Patient admitted for further monitoring and management. Patient was transfused with a total of 10 PRBC since admission and had two debridements of the left foot. Patient then had Wound VAC placed. Patient then began having dyspnea with orthopnea and repeat chest x-ray revealed fluid overload. Patient currently being diuresed with Lasix. Syncope secondary to Acute on Chronic Anemia -Total of 10 PRBC's transfused since admission and EPO on 08/29 -Hemoglobin and HCT today 7.5/24.5 -Transfuse PRBC if hemoglobin falls below 7.0 -Continue to monitor daily CBC -No colonoscopy or EGD as per GI -Heme/Onc consult appreciated. Sepsis Secondary to Osteomyelitis- improving -MRI revealed osteomyelitis of left lower extremity -Afebrile -S/P debridement 08/27/16 and 08/31/16 -Ceftriaxone discontinued yesterday and switched to Zosyn for PNA. Continue Flagyl 500mg Q8H day #8 -Wound cultures growing beta hemolytic strep group G -Wound VAC done over weekend -Tunneled cath ordered for continuation of IV abx -Continue to trend CBC and ESR Acute Hypoxic Respiratory failure -Likely secondary to HAP found on chest x-ray and congestive changes -ECHO on admission showed normal EF -Ceftriaxone discontinued and switched to Zosyn 3.375 mg IV Q8H for HAP -Continues to have Crackles throughout lung bases -Remained on BIPAP throughout the night now on 02 Nasal Cannula. Switch to Ventimask if experiences increasing dyspnea. -Received total of 160mg of IV Lasix yesterday -Output >5 Liters in the last 24 hours -Strict I&O's -Will Administer another dose of 40mg IV Lasix -Pulmonology consult ordered Acute on chronic renal failure: -Creatinine 2.5mg daily -Renal US showing bilateral echogenic kidneys: this relates to chronic kidney disease -Renal consulted HTN -Continue Metoprolol 25mg BID -Norsvac 10mg daily -Diovan held due to FROYLAN Hyperkalemia- resolved -Today 4.6 -Continue to trend -maintain low K diet Hypophosphatemia -Phoslo with meals TID DM II -Levemir 22 units BID -Insulin sliding scale -BGM F/E/N -On no fluids -Electrolytes wnl -Diabetic/Sodium controlled diet Prophylaxis -SCD's for DVT Disposition -Patient dyspneic and found to have congestive changes and pneumonia on chest x- ray. Will continue to diurese. Visit type - Emergency Visit Emergency Visit: Yes ED Registration Date: 08/19/16 Care time: The patient presented to the Emergency Department on the above date and was hospitalized for further evaluation of their emergent condition. - New Patient This patient is new to me today: No - Critical Care Critical Care patient: No
[2016-09-05 08:18] LABS: ALBUMIN 1.9 g/dl (3.4-5.0); BILIRUBIN,TOTAL 0.5 mg/dL (0.2-1.0); CALCIUM 7.9 mg/dL (8.5-10.1); COCKROFT - GAULT 42.8; CREATININE 2.5 mg/dL (0.7-1.3); MAGNESIUM 1.8 mg/dL (1.8-2.4); PHOSPHOROUS 4.5 mg/dL (2.5-4.9); TOT PROT 7.4 g/dl (6.4-8.2)
[2016-09-05] MEDS ORDERED: FUROSEMIDE 40 MG/4 ML INJECTABLE VIAL IVPB ONE (09:00)
[2016-09-05] MEDS: PREGABALIN 50 MG CAPSULE PO SCH ×2 (10:29→23:45)
[2016-09-05] MEDS: METOPROLOL TARTRATE 25 MG TABLET (FP) PO SCH ×2 (10:29→23:45)
[2016-09-05] MEDS: DULoxetine HCL 30 MG CAPSULE.DR (FP) PO SCH (10:29)
[2016-09-05] MEDS: FERROUS SO4 325 MG TABLET (FP) PO SCH (10:29)
[2016-09-05] MEDS: CALCIUM ACETATE 667 MG CAPSULE (FP) PO SCH ×3 (10:29→16:56)
[2016-09-05] MEDS: ASCORBIC ACID 500 MG TABLET (FP) PO SCH (10:29)
[2016-09-05] MEDS: amLODIPine BESYLATE 10 MG TABLET (FP) PO SCH (10:30)
[2016-09-05] MEDS: FOLIC ACID 1 MG TABLET (FP) PO SCH (10:30)
[2016-09-05] MEDS: PANTOPRAZOLE 20 MG TABLET (FP) PO SCH (10:30)
[2016-09-05] MEDS: SODIUM BICARBONATE 650 MG TABLET PO SCH (10:30)
[2016-09-05] MEDS: FUROSEMIDE 40 MG TABLET (FP) PO SCH (10:31)
[2016-09-05] MEDS: ZINC SULFATE 220 MG CAPSULE (FP) PO SCH (10:31)
[2016-09-05] MEDS: DOXAZOSIN MESYLATE 4 MG TABLET PO SCH (10:32)
[2016-09-05] MEDS: oxyCODONE HCL 5 MG TABLET PO PRN ×2 (10:48→19:58)
[2016-09-05] MEDS: ALBUTEROL SO4 2.5/IPRATROPIUM 0.5 INH SOL 3 ML VIAL.NEB. NEB SCH ×2 (11:30→17:47)
[2016-09-05] MEDS: METHYL SALICYLATE/MENTHOL OINT 30 GM TUBE TP SCH ×2 (12:11→23:45)
--- NOTE | 2016-09-05 12:23 | PN ---
Progress Note, Physician History of Present Illness: PULMONARY ALERT,MUCH IMPROVED,LESS SOB,+ COUGH,ON NASAL O2 4L - Current Medication List Current Medications: Active Medications Albuterol Sulfate (Ventolin Hfa Inhaler -) 2 puff IH Q4H PRN PRN Reason: WHEEZING Albuterol/Ipratropium (Duoneb -) 1 amp NEB BID [facility] Last Admin: 09/05/16 11:30 Dose: 1 amp Amlodipine Besylate (Norvasc -) 10 mg PO DAILY [facility] Last Admin: 09/05/16 10:30 Dose: 10 mg Ascorbic Acid (Vitamin C -) 500 mg PO DAILY [facility] Last Admin: 09/05/16 10:29 Dose: 500 mg Calcium Acetate (Phoslo -) 1,334 mg PO TIDCM [facility] Last Admin: 09/05/16 10:29 Dose: 1,334 mg Doxazosin Mesylate (Cardura -) 4 mg PO DAILY [facility] Last Admin: 09/05/16 10:32 Dose: 4 mg Duloxetine HCl (Cymbalta -) 30 mg PO DAILY [facility] Last Admin: 09/05/16 10:29 Dose: 30 mg Ferrous Sulfate (Feosol -) 325 mg PO DAILY [facility] Last Admin: 09/05/16 10:29 Dose: 325 mg Folic Acid (Folic Acid -) 1 mg PO DAILY [facility] Last Admin: 09/05/16 10:30 Dose: 1 mg Furosemide (Lasix -) 40 mg PO DAILY [facility] Last Admin: 09/05/16 10:31 Dose: Not Given IV Flush (Picc Line Flush) 8 ml IVPUSH PRN PRN PRN Reason: Protocol Insulin Aspart (Novolog Vial Sliding Scale -) 1 vial SQ TIDAC [facility] PRN Reason: Protocol Last Admin: 09/05/16 12:11 Dose: Not Given Insulin Detemir (Levemir Vial) 20 units SQ BID@0700,2200 [facility] Last Admin: 09/05/16 06:15 Dose: Not Given Methyl Salicylate (Sterling-Greer -) 1 applic TP BID [facility] Last Admin: 09/05/16 12:11 Dose: 1 applic Metoprolol Tartrate (Lopressor -) 50 mg PO BID [facility] Last Admin: 09/05/16 10:29 Dose: 50 mg Metronidazole (Flagyl -) 500 mg PO TID [facility] Last Admin: 09/05/16 06:15 Dose: 500 mg Mirtazapine (Remeron -) 30 mg PO HS [facility] Last Admin: 09/04/16 21:46 Dose: 30 mg Miscellaneous (Duragesic Patch Waste) 1 each TD PRN PRN PRN Reason: PAIN Oxycodone HCl (Roxicodone -) 10 mg PO Q6H PRN PRN Reason: PAIN Last Admin: 09/05/16 10:48 Dose: 10 mg Pantoprazole Sodium (Protonix -) 20 mg PO DAILY [facility] Last Admin: 09/05/16 10:30 Dose: 20 mg Piperacillin Sod/Tazobactam Sod (Zosyn 3.375gm Ivpb (Pre-Docked)) 3.375 gm IVPB Q8H-IV [facility] PRN Reason: Protocol Last Admin: 09/05/16 10:28 Dose: 3.375 gm Pregabalin (Lyrica -) 100 mg PO BID [facility] Last Admin: 09/05/16 10:29 Dose: 100 mg Sodium Bicarbonate (Sodium Bicarbonate -) 650 mg PO DAILY [facility] Last Admin: 09/05/16 10:30 Dose: 650 mg Trazodone HCl (Desyrel -) 300 mg PO HS [facility] Last Admin: 09/04/16 21:46 Dose: 300 mg Zinc Sulfate (Orazinc -) 220 mg PO DAILY [facility] Last Admin: 09/05/16 10:31 Dose: 220 mg - Objective Vital Signs: Vital Signs Temperature 97.4 F L 09/05/16 06:00 Pulse Rate 63 09/05/16 11:30 Respiratory Rate 20 09/05/16 06:00 Blood Pressure 136/86 09/05/16 06:00 O2 Sat by Pulse Oximetry (%) 94 L 09/05/16 11:30 Constitutional: Yes: Well Nourished, Calm Eyes: Yes: WNL HENT: Yes: WNL Neck: Yes: WNL Cardiovascular: Yes: Regular Rate and Rhythm, S1, S2 Respiratory: Yes: Wheezes (TANVI WHEEZES) Gastrointestinal: Yes: Normal Bowel Sounds, Soft Extremities: Yes: Amputation (left metatarsal) Edema: Yes Labs: CBC, BMP 09/05/16 05:47 09/05/16 05:47 INR, PTT INR 1.26 (0.82-1.09) H 08/22/16 08:40 Fibrinogen 355.0 mg/dL (238-498) 08/20/16 17:10 Problem List - Problems (1) FROYLAN (acute kidney injury) Code(s): N17.9 - ACUTE KIDNEY FAILURE, UNSPECIFIED (2) Severe anemia Code(s): D64.9 - ANEMIA, UNSPECIFIED (3) Hyperglycemia Code(s): R73.9 - HYPERGLYCEMIA, UNSPECIFIED (4) Osteoarthritis Code(s): M19.90 - UNSPECIFIED OSTEOARTHRITIS, UNSPECIFIED SITE (5) COPD with emphysema Code(s): J43.9 - EMPHYSEMA, UNSPECIFIED (6) Chronic renal insufficiency, stage III (moderate) Code(s): N18.3 - CHRONIC KIDNEY DISEASE, STAGE 3 (MODERATE) (7) 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 Code(s): E11.9 - TYPE 2 DIABETES MELLITUS WITHOUT COMPLICATIONS (8) Diabetic neuropathy Code(s): E11.40 - TYPE 2 DIABETES MELLITUS WITH DIABETIC NEUROPATHY, UNSP (9) GERD (gastroesophageal reflux disease) Code(s): K21.9 - GASTRO-ESOPHAGEAL REFLUX DISEASE WITHOUT ESOPHAGITIS (10) HTN (hypertension) Code(s): I10 - ESSENTIAL (PRIMARY) HYPERTENSION (11) Osteomyelitis Code(s): M86.9 - OSTEOMYELITIS, UNSPECIFIED (12) Acute hypoxemic respiratory failure Code(s): J96.01 - ACUTE RESPIRATORY FAILURE WITH HYPOXIA Assessment/Plan ASSESSMENT AND PLAN: Acute hypoxemic respiratory failure improving Fluid overload Syncope Anemia Left foot ulcer infection s/p debridement Gram Positive Bacteremia Sepsis Acute on Chronic Renal Failure Hyperkalemia DM (?) Nerve impingement causing symptoms NIPPV prn o2 continue lasix f/u chest x-ray - Local wound care - Pain control - glucose control - PT/OT - chest x-ray today - strict I+Os - inhaled bronchodilators DR BAUM
--- NOTE | 2016-09-05 13:22 | PN ---
Teaching Attending Note Name of Resident: Marlena Bello ATTENDING PHYSICIAN STATEMENT I saw and evaluated the patient. I reviewed the resident's note and discussed the case with the resident. I agree with the resident's findings and plan as documented. SUBJECTIVE: Doing better today. OBJECTIVE: Vital Signs Period Temp Pulse Resp BP Sys/Gutierrez Pulse Ox Last 24 Hr 96.7 F-98.4 F 63-82 18-20 133-161/86-96 93-94 HEART: S1S2, RRR LUNGS: Scattered wheezes ABDOMEN: Soft, non-tender, non-distended, normal BS EXTREMITIES: Trace edema ASSESSMENT AND PLAN: This is a 60-year-old man with a history of HTH, type 2 DM, peripheral neuropathy, OM of left foot, left foot TMA who presented to the ER after a syncopal episode. 1. Sepsis secondary to left foot osteomyelitis - s/p bone biopsy 08/27, debridement 08/31 - Continue Rocephin, Flagyl 2. Symptomatic anemia secondary to sepsis - Transfused 10 units PRBCs this admission 3. Anemia secondary to chronic illness - Hemoglobin stable 4. Hyperkalemia - Improved 5. Acute hypoxic respiratory failure secondary to acute diastolic heart failure from fluid overload - Continue Lasix IV - Improving - off BiPAP and on 4 LPM via NC - CXR shows congestion with bilateral effusions 6. Acute kidney injury - Creatinine stable 7. Stage 4 CKD 8. Hyperphosphatemia - Continue PhosLo 9. Type 2 DM with peripheral neuropathy - Continue Levemir, Novolog sliding scale, Lyrica 10. HTN - Continue Lopressor, Norvasc, Lasix, Cardura
--- NOTE | 2016-09-05 13:40 | PN ---
Physical Exam: SUBJECTIVE: Patient seen and examined breathing improved, BiPAP overnight, NC today, tolerating well. Still with cough white sputum production. Admits to increased urination, on lasix. Afebrile, wbc wnl OBJECTIVE: Vital Signs Period Temp Pulse Resp BP Sys/Gutierrez Pulse Ox Last 24 Hr 96.7 F-98.4 F 63-82 18-20 131-161/80-96 93-94 GENERAL: The patient is awake, alert, and fully oriented, in no acute distress. HEAD: Normal with no signs of trauma. LUNGS: decreased breath sounds equal, mild crackles LLL; improved, no accessory muscle use. HEART: Regular rate and rhythm, S1, S2 without murmur, rub or gallop. ABDOMEN: Soft, nontender, nondistended, normoactive bowel sounds, no guarding, no rebound, no hepatosplenomegaly, no masses. EXTREMITIES: 2+ pulses, warm, well-perfused, no edema. Left foot wrapped with wound vac; no drainage NEUROLOGICAL: Cranial nerves II through XII grossly intact. Normal speech, gait not observed. PSYCH: Normal mood, normal affect. SKIN: Warm, dry, normal turgor, no rashes or lesions noted CBC, BMP 09/05/16 05:47 09/05/16 05:47 Active Medications Generic Name Dose Route Start Last Admin Trade Name Freq PRN Reason Stop Dose Admin Albuterol Sulfate 2 puff 08/31/16 10:24 Ventolin Hfa Inhaler - IH Q4H PRN WHEEZING Albuterol/Ipratropium 1 amp 09/05/16 18:00 Duoneb - NEB QIDR IGGY Amlodipine Besylate 10 mg 09/01/16 10:00 09/05/16 10:30 Norvasc - PO 10 mg DAILY IGGY Administration Ascorbic Acid 500 mg 09/01/16 10:00 09/05/16 10:29 Vitamin C - PO 500 mg DAILY IGGY Administration Calcium Acetate 1,334 mg 08/31/16 12:00 09/05/16 12:48 Phoslo - PO 1,334 mg TIDCM IGGY Administration Doxazosin Mesylate 4 mg 09/01/16 10:00 09/05/16 10:32 Cardura - PO 4 mg DAILY IGGY Administration Duloxetine HCl 30 mg 09/01/16 10:00 09/05/16 10:29 Cymbalta - PO 30 mg DAILY IGGY Administration Ferrous Sulfate 325 mg 09/01/16 10:00 09/05/16 10:29 Feosol - PO 325 mg DAILY IGGY Administration Folic Acid 1 mg 09/01/16 10:00 09/05/16 10:30 Folic Acid - PO 1 mg DAILY IGGY Administration Furosemide 40 mg 09/01/16 10:00 09/05/16 10:31 Lasix - PO Not Given DAILY IGGY IV Flush 8 ml 09/03/16 09:35 Picc Line Flush IVPUSH PRN PRN Protocol Insulin Aspart 1 vial 08/31/16 11:00 09/05/16 12:11 Novolog Vial Sliding Scale - SQ Not Given TIDAC IGGY Protocol Insulin Detemir 20 units 08/31/16 22:00 09/05/16 06:15 Levemir Vial SQ Not Given BID@0700,2200 IGGY Methyl Salicylate 1 applic 08/31/16 22:00 09/05/16 12:11 Sterling-Greer - TP 1 applic BID IGGY Administration Metoprolol Tartrate 50 mg 09/01/16 10:00 09/05/16 10:29 Lopressor - PO 50 mg BID IGGY Administration Metronidazole 500 mg 09/03/16 10:00 09/05/16 06:15 Flagyl - PO 500 mg TID IGGY Administration Mirtazapine 30 mg 08/31/16 22:00 09/04/16 21:46 Remeron - PO 30 mg HS IGGY Administration Miscellaneous 1 each 08/31/16 10:24 Duragesic Patch Waste TD PRN PRN PAIN Oxycodone HCl 10 mg 08/31/16 10:24 09/05/16 10:48 Roxicodone - PO 10 mg Q6H PRN Administration PAIN Pantoprazole Sodium 20 mg 09/01/16 10:00 09/05/16 10:30 Protonix - PO 20 mg DAILY IGGY Administration Piperacillin Sod/Tazobactam Sod 3.375 gm 09/04/16 15:45 09/05/16 10:28 Zosyn 3.375gm Ivpb (Pre-Docked) IVPB 3.375 gm Q8H-IV IGGY Administration Protocol Pregabalin 100 mg 08/31/16 22:00 09/05/16 10:29 Lyrica - PO 100 mg BID IGGY Administration Sodium Bicarbonate 650 mg 09/01/16 10:00 09/05/16 10:30 Sodium Bicarbonate - PO 650 mg DAILY IGGY Administration Trazodone HCl 300 mg 08/31/16 22:00 09/04/16 21:46 Desyrel - PO 300 mg HS IGGY Administration Zinc Sulfate 220 mg 09/01/16 10:00 09/05/16 10:31 Orazinc - PO 220 mg DAILY IGGY Administration Microbiology 08/27/16 18:50 Foot - Left Heel Gram Stain - Final 08/27/16 18:50 Foot - Left Heel Wound Culture - Final NO GROWTH OF AEROBIC ORGANISMS AFTER 48 HOURS INCUBATION 08/27/16 18:50 Foot - Left Plantar Gram Stain - Final 08/27/16 18:50 Foot - Left Plantar Wound Culture - Final 08/27/16 18:50 Foot - Left Dorsum Gram Stain - Final 08/27/16 18:50 Foot - Left Dorsum Wound Culture - Final Beta Hem Streptococcus Group G 08/22/16 05:35 Blood - Peripheral Venous Blood Culture - Final NO GROWTH AFTER 5 DAYS INCUBATION 08/22/16 05:30 Blood - Peripheral Venous Blood Culture - Final NO GROWTH AFTER 5 DAYS INCUBATION 08/19/16 22:20 Blood - Peripheral Venous Blood Culture - Final Staphylococcus Epidermidis#2 Staphylococcus Epidermidis Staphylococcus Epidermidis#3 08/21/16 21:20 Foot - Left Instep Gram Stain - Final 08/21/16 21:20 Foot - Left Instep Wound Culture - Final Beta Hem Streptococcus Group G 08/19/16 22:20 Blood - Peripheral Venous Blood Culture - Final Beta Hem Streptococcus Group G Staphylococcus Epidermidis 08/21/16 03:00 Abscess Gram Stain - Final 08/21/16 03:00 Abscess Wound Culture - Final Beta Hem Streptococcus Group G 08/20/16 07:40 Urine - Urine - Catheterized Urine Culture - Final NO GROWTH OBTAINED ASSESSMENT/PLAN: Pt is a 60 yo M with PMHx of DM, HTN, diabetic neuropathy with left foot amputation, and CKD who presents to the ED s/p syncopal episode from standing position with +LOC and +head trauma. Pt was found to have a Hgb of 3.7 and WBC of 26.1 upon presentation. S/P multiple PRBCs -Sepsis due to osteomylelitis L foot -Acute on chronic CD -Hyperkalemia -hyperphosphtemia -HTN #sob improved, most likely secondary to fluid overload - #sepsis secondary to osteomyelitis: s/p debridement 08/27 and 08/31 -white count,trending up; afebrile -will DC flagyl and ceftriaxone for; -start zosyn for braod spectrum to cover for HAP Day 2 -wound cultures above -MRI +osteomyelitis; -old sensitivities noted from previous infection -Dr Galvan ; I&D; with bone glue therapy; if treatment fail, will proceed with transtibial amputation -switch back to flagyl, ceftriaxone as outpatient #shortness of breath; most lieky secondary to congestion volume overlad; r/o HAP : -BIPAP -repeat CXR -cont lasix -duonebs -zosyn (day 2)for broad spectrum , r/o HAP; will reassess on Saturday for antibiotics Problem List - Problems (1) Chronic renal insufficiency, stage III (moderate) Code(s): N18.3 - CHRONIC KIDNEY DISEASE, STAGE 3 (MODERATE) (2) 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 Code(s): E11.9 - TYPE 2 DIABETES MELLITUS WITHOUT COMPLICATIONS (3) Diabetic neuropathy Code(s): E11.40 - TYPE 2 DIABETES MELLITUS WITH DIABETIC NEUROPATHY, UNSP (4) Foot infection Code(s): L08.9 - LOCAL INFECTION OF THE SKIN AND SUBCUTANEOUS TISSUE, UNSP (5) GERD (gastroesophageal reflux disease) Code(s): K21.9 - GASTRO-ESOPHAGEAL REFLUX DISEASE WITHOUT ESOPHAGITIS (6) HTN (hypertension) Code(s): I10 - ESSENTIAL (PRIMARY) HYPERTENSION (7) Osteomyelitis Code(s): M86.9 - OSTEOMYELITIS, UNSPECIFIED Visit type - Emergency Visit Emergency Visit: Yes ED Registration Date: 08/19/16 Care time: The patient presented to the Emergency Department on the above date and was hospitalized for further evaluation of their emergent condition. - New Patient This patient is new to me today: No - Critical Care Critical Care patient: No
--- NOTE | 2016-09-05 13:47 | PN ---
Progress Note (short form) - Note Progress Note: Renal Follow up for FROYLAN/CKD with Hyperkalemia Pt seen and examined at the bedside off BIPAP on NC O2 reports that sob is improved no chest pain + cough good urine output Vital Signs Temperature 97.6 F 09/05/16 10:00 Pulse Rate 63 09/05/16 11:30 Respiratory Rate 20 09/05/16 10:00 Blood Pressure 131/80 09/05/16 10:00 O2 Sat by Pulse Oximetry (%) 94 L 09/05/16 11:30 Intake & Output 09/02/16 09/03/16 09/04/16 09/05/16 23:59 23:59 23:59 23:59 Intake Total 1130 840 320 110 Output Total 2900 1150 3900 1400 Balance -9920 -310 -2750 -1290 Gen: NAD on NC HEENT: No JVD CVS: RRR, No M/R Lungs: Dec BS throughout the lung [place] Abd: NT/ND Ext: trace to 1+ edema in LLE CBC, BMP 09/05/16 05:47 09/05/16 05:47 Laboratory Tests 09/04/16 09/05/16 06:10 05:47 Creat Clearance w eGFR 25.22 Calcium 7.9 L 7.9 L Phosphorus 4.5 D Magnesium 1.8 Albumin 2.1 L 1.9 L Current Medications Albuterol Sulfate (Ventolin Hfa Inhaler -) 2 puff IH Q4H PRN PRN Reason: WHEEZING Albuterol/Ipratropium (Duoneb -) 1 amp NEB QIDR [facility] Amlodipine Besylate (Norvasc -) 10 mg PO DAILY [facility] Last Admin: 09/05/16 10:30 Dose: 10 mg Ascorbic Acid (Vitamin C -) 500 mg PO DAILY [facility] Last Admin: 09/05/16 10:29 Dose: 500 mg Calcium Acetate (Phoslo -) 1,334 mg PO TIDCM [facility] Last Admin: 09/05/16 12:48 Dose: 1,334 mg Doxazosin Mesylate (Cardura -) 4 mg PO DAILY [facility] Last Admin: 09/05/16 10:32 Dose: 4 mg Duloxetine HCl (Cymbalta -) 30 mg PO DAILY [facility] Last Admin: 09/05/16 10:29 Dose: 30 mg Ferrous Sulfate (Feosol -) 325 mg PO DAILY [facility] Last Admin: 09/05/16 10:29 Dose: 325 mg Folic Acid (Folic Acid -) 1 mg PO DAILY [facility] Last Admin: 09/05/16 10:30 Dose: 1 mg Furosemide (Lasix -) 40 mg PO DAILY [facility] Last Admin: 09/05/16 10:31 Dose: Not Given IV Flush (Picc Line Flush) 8 ml IVPUSH PRN PRN PRN Reason: Protocol Insulin Aspart (Novolog Vial Sliding Scale -) 1 vial SQ TIDAC IGGY PRN Reason: Protocol Last Admin: 09/05/16 12:11 Dose: Not Given Insulin Detemir (Levemir Vial) 20 units SQ BID@0700,2200 [facility] Last Admin: 09/05/16 06:15 Dose: Not Given Methyl Salicylate (Sterling-Greer -) 1 applic TP BID [facility] Last Admin: 09/05/16 12:11 Dose: 1 applic Metoprolol Tartrate (Lopressor -) 50 mg PO BID [facility] Last Admin: 09/05/16 10:29 Dose: 50 mg Metronidazole (Flagyl -) 500 mg PO TID [facility] Last Admin: 09/05/16 06:15 Dose: 500 mg Mirtazapine (Remeron -) 30 mg PO HS [facility] Last Admin: 09/04/16 21:46 Dose: 30 mg Miscellaneous (Duragesic Patch Waste) 1 each TD PRN PRN PRN Reason: PAIN Oxycodone HCl (Roxicodone -) 10 mg PO Q6H PRN PRN Reason: PAIN Last Admin: 09/05/16 10:48 Dose: 10 mg Pantoprazole Sodium (Protonix -) 20 mg PO DAILY [facility] Last Admin: 09/05/16 10:30 Dose: 20 mg Piperacillin Sod/Tazobactam Sod (Zosyn 3.375gm Ivpb (Pre-Docked)) 3.375 gm IVPB Q8H-IV IGGY PRN Reason: Protocol Last Admin: 09/05/16 10:28 Dose: 3.375 gm Pregabalin (Lyrica -) 100 mg PO BID [facility] Last Admin: 09/05/16 10:29 Dose: 100 mg Sodium Bicarbonate (Sodium Bicarbonate -) 650 mg PO DAILY [facility] Last Admin: 09/05/16 10:30 Dose: 650 mg Trazodone HCl (Desyrel -) 300 mg PO HS [facility] Last Admin: 09/04/16 21:46 Dose: 300 mg Zinc Sulfate (Orazinc -) 220 mg PO DAILY [facility] Last Admin: 09/05/16 10:31 Dose: 220 mg A/P 60 year old Gentleman with PMhx of CKD (baseline unclear), Hypertension, IDDM, PVD who presented s/p syncopal episode and found to have acute Anemia with Hgb of 3.7 and BUN/Cr of 41/2.7 and K of 6.8. #FROYLAN -> CKD stage 4 with subnephrotoic proteinuria Renal function with mild improvement continue to trend while on IV lasix #CHF/Fluid overload with good response to IV lasix s/p Lasix 80mg IV this am give additional 40mg this evening trend weights and urine output #Hyperphosphatemia continue Phoslo with meals Miguel Jansen DO
[2016-09-05] MEDS ORDERED: FUROSEMIDE 40 MG/4 ML INJECTABLE VIAL IVPUSH ONE (16:00)
--- NOTE | 2016-09-05 17:11 | PN ---
Teaching Attending Note Name of Resident: Sis Barrett ATTENDING PHYSICIAN STATEMENT I saw and evaluated the patient. I reviewed the resident's note and discussed the case with the resident. I agree with the resident's findings and plan as documented. SUBJECTIVE: OBJECTIVE: ASSESSMENT AND PLAN: SOB improving with diuresis switched to zosyn yesterday for possible RLL infiltrate he feels better plan is for 6 weeks of antibiotics for osteo of the right foot
[2016-09-05] MEDS ORDERED: traZODone HCL 50 MG TABLET (FP) ONE (22:47)
[2016-09-05] MEDS: MIRTAZAPINE 15 MG TABLET (FP) PO SCH (23:44)
[2016-09-05] MEDS: traZODone HCL 100 MG TABLET (FP) PO SCH (23:45)
[2016-09-06] MEDS: ALBUTEROL SO4 2.5/IPRATROPIUM 0.5 INH SOL 3 ML VIAL.NEB. NEB SCH ×5 (00:45→23:55)
[2016-09-06] MEDS: PIPERACILLIN/TAZOB 3.375 GM/50 ML PRE-DOCKED IVPB SCH ×3 (01:52→17:54)
[2016-09-06] MEDS: metroNIDAZOLE 250 MG TABLET PO SCH ×3 (06:38→22:16)
[2016-09-06] MEDS: INSULIN SLIDING SCALE (NOVOLOG) 1 VIAL SQ SCH ×3 (06:46→17:53)
[2016-09-06] MEDS: INSULIN DETEMIR 100 UNITS/ML MDV SQ SCH ×2 (06:46→22:19)
[2016-09-06 07:02] LABS: CALCIUM 7.6 mg/dL (8.5-10.1); COCKROFT - GAULT 39.63; CREATININE 2.7 mg/dL (0.7-1.3); MAGNESIUM 1.8 mg/dL (1.8-2.4); PHOSPHOROUS 4.2 mg/dL (2.5-4.9)
[2016-09-06 07:35] LABS: MCH 25.5 pg (25.7-33.7); MCHC 32.3 g/dl (32.0-35.9); MEAN CELL VOLUME 78.9 fl (80-96); MEAN PLT VOLUME 8.3 fl (7.5-11.1); PLATELET COUNT 295 K/MM3 (134-434); RDW 26.1 % (11.9-15.9); WHITE BLOOD COUNT 6.6 K/mm3 (4.0-10.0)
--- NOTE | 2016-09-06 08:59 | PN ---
Physical Exam: SUBJECTIVE: Patient seen and examined by me at bedside. Patient overnight did not require BIPAP overnight and saturated well on nasal cannula. Patient this morning reports feeling fatigued with some shortness of breath. This mornings hemoglobin was 6.6 and 1 unit of PRBC ordered as well as Lasix IV to avoid worsening volume overload. Patient this morning had hypoglycemia reaching as low as the 40's. He was given omani toast and will repeat his glucose levels. Otherwise, patient denies fever, chills, nausea, vomiting, chest pain, palpitations, abdominal pain. OBJECTIVE: Vital Signs Period Temp Pulse Resp BP Sys/Gutierrez Pulse Ox Last 24 Hr 97.1 F-99.3 F 63-133 20-20 124-142/75-91 94-95 GENERAL: The patient is awake, alert, and fully oriented, in no acute distress. LUNGS: Worsening crackles throughout lung bases bilaterally HEART: Regular rate and rhythm, S1, S2 without murmur, rub or gallop. ABDOMEN: Soft, nontender, nondistended, no guarding, no rebound tenderness EXTREMITIES: trace pitting edema in B/L LE. Left metatarsal amputation with gauze wrapped around, Wound Vac placed Laboratory Results - last 24 hr 09/05/16 09/05/16 09/05/16 11:44 16:59 23:50 WBC RBC Hgb Hct MCV MCHC RDW Plt Count MPV Sodium Potassium Chloride Carbon Dioxide Anion Gap BUN Creatinine POC Glucometer 105 145 242 Random Glucose Calcium Phosphorus Magnesium 09/06/16 09/06/16 09/06/16 05:35 05:40 06:36 WBC 6.6 D RBC 2.57 L Hgb 6.6 L* D Hct 20.3 L D MCV 78.9 L MCHC 32.3 RDW 26.1 H Plt Count 295 MPV 8.3 Sodium 143 Potassium 4.6 Chloride 106 Carbon Dioxide 26 Anion Gap 11 BUN 61 H Creatinine 2.7 H POC Glucometer 55 Random Glucose 69 L D Calcium 7.6 L Phosphorus 4.2 Magnesium 1.8 09/06/16 07:45 WBC RBC Hgb Hct MCV MCHC RDW Plt Count MPV Sodium Potassium Chloride Carbon Dioxide Anion Gap BUN Creatinine POC Glucometer 52 Random Glucose Calcium Phosphorus Magnesium Active Medications Generic Name Dose Route Start Last Admin Trade Name Freq PRN Reason Stop Dose Admin Albuterol Sulfate 2 puff 08/31/16 10:24 Ventolin Hfa Inhaler - IH Q4H PRN WHEEZING Albuterol/Ipratropium 1 amp 09/05/16 18:00 09/06/16 05:50 Duoneb - NEB 1 amp QIDR IGGY Administration Amlodipine Besylate 10 mg 09/01/16 10:00 09/05/16 10:30 Norvasc - PO 10 mg DAILY IGGY Administration Ascorbic Acid 500 mg 09/01/16 10:00 09/05/16 10:29 Vitamin C - PO 500 mg DAILY IGGY Administration Calcium Acetate 1,334 mg 08/31/16 12:00 09/05/16 16:56 Phoslo - PO 1,334 mg TIDCM IGGY Administration Doxazosin Mesylate 4 mg 09/01/16 10:00 09/05/16 10:32 Cardura - PO 4 mg DAILY IGGY Administration Duloxetine HCl 30 mg 09/01/16 10:00 09/05/16 10:29 Cymbalta - PO 30 mg DAILY IGGY Administration Ferrous Sulfate 325 mg 09/01/16 10:00 09/05/16 10:29 Feosol - PO 325 mg DAILY IGGY Administration Folic Acid 1 mg 09/01/16 10:00 09/05/16 10:30 Folic Acid - PO 1 mg DAILY IGGY Administration Furosemide 80 mg 09/06/16 08:45 Lasix Injection - IVPB 09/06/16 08:46 ONCE ONE Furosemide 40 mg 09/06/16 09:30 Lasix Injection - IVPB 09/06/16 09:31 ONCE ONE IV Flush 8 ml 09/03/16 09:35 Picc Line Flush IVPUSH PRN PRN Protocol Insulin Aspart 1 vial 08/31/16 11:00 09/06/16 06:46 Novolog Vial Sliding Scale - SQ Not Given TIDAC [facility] Protocol Insulin Detemir 20 units 08/31/16 22:00 09/06/16 06:46 Levemir Vial SQ Not Given BID@0700,2200 IGGY Methyl Salicylate 1 applic 08/31/16 22:00 09/05/16 23:45 Sterling-Greer - TP 1 applic BID IGGY Administration Metoprolol Tartrate 50 mg 09/01/16 10:00 09/05/16 23:45 Lopressor - PO 50 mg BID IGGY Administration Metronidazole 500 mg 09/03/16 10:00 09/06/16 06:38 Flagyl - PO 500 mg TID IGGY Administration Mirtazapine 30 mg 08/31/16 22:00 09/05/16 23:44 Remeron - PO 30 mg HS IGGY Administration Miscellaneous 1 each 08/31/16 10:24 Duragesic Patch Waste TD PRN PRN PAIN Oxycodone HCl 10 mg 09/05/16 19:40 09/05/16 19:58 Roxicodone - PO 10 mg Q6H PRN Administration PAIN Pantoprazole Sodium 20 mg 09/01/16 10:00 09/05/16 10:30 Protonix - PO 20 mg DAILY IGGY Administration Piperacillin Sod/Tazobactam Sod 3.375 gm 09/04/16 15:45 09/06/16 01:52 Zosyn 3.375gm Ivpb (Pre-Docked) IVPB 3.375 gm Q8H-IV IGGY Administration Protocol Pregabalin 100 mg 08/31/16 22:00 09/05/16 23:45 Lyrica - PO 100 mg BID IGGY Administration Sodium Bicarbonate 650 mg 09/01/16 10:00 09/05/16 10:30 Sodium Bicarbonate - PO 650 mg DAILY IGGY Administration Trazodone HCl 300 mg 08/31/16 22:00 09/05/16 23:45 Desyrel - PO 300 mg HS IGGY Administration Zinc Sulfate 220 mg 09/01/16 10:00 09/05/16 10:31 Orazinc - PO 220 mg DAILY IGGY Administration ASSESSMENT/PLAN: Patient is a 60 year old male with a PMHx of DM with nephropathy and neuropathy s/p left metatarsal amputation, HTN, CKD who presented after a syncopal episode with loss of consciousness and head trauma. Patient was found to have a hemoglobin of 3.7 and WBC of 26.1. Patient admitted for further monitoring and management. Patient was transfused with a total of 10 PRBC since admission and had two debridements of the left foot. Patient then had Wound VAC placed. Patient then began having dyspnea with orthopnea and repeat chest x-ray revealed fluid overload. Patient currently being diuresed with Lasix. Syncope secondary to Acute on Chronic Anemia -Today's hgb/hct 6.6 and 20.3 -1 unit of PRBC's ordered today with total of 11 PRBC's since admission -Continue to monitor daily CBC -No colonoscopy or EGD as per GI -Will call heme/onco today Sepsis Secondary to Osteomyelitis- improving -MRI revealed osteomyelitis of left lower extremity -Afebrile -S/P debridement 08/27/16 and 08/31/16 -Zosyn day #2 Continue Flagyl 500mg Q8H day #9 -Wound cultures growing beta hemolytic strep group G -Continue Wound VAC -Tunneled cath ordered for discharge -Continue to trend CBC and ESR Acute Hypoxic Respiratory failure -Likely secondary to HAP found on chest x-ray and congestive changes -ECHO on admission showed normal EF -Zosyn 3.375 mg IV Q8H for HAP day #2 -Continues to have Crackles throughout lung bases -Did not require BIPAP overnight and saturating well on 3L NC -Lasix 80mg IV stat ordered today with an additional 40mg IV before PRBC transfusion -Output of 2.6L in the last 24 hours -Strict I&O's -Pulmonology consult ordered -Cardiology consult placed Acute on chronic renal failure: -Creatinine 2.7mg daily -Renal US showing bilateral echogenic kidneys: this relates to chronic kidney disease -Nephrology on case HTN -Continue Metoprolol 25mg BID -Norsvac 10mg daily -Diovan held due to FROYLAN Hyperkalemia- resolved -Today 4.6 -Continue to trend -maintain low K diet Hypophosphatemia -Phoslo with meals TID DM II -Levemir 22 units BID -Insulin sliding scale -BGM F/E/N -On no fluids -Electrolytes wnl -Diabetic/Sodium controlled diet Prophylaxis -SCD's for DVT Disposition -Patient dyspneic and found to have congestive changes and pneumonia on chest x- ray. Will continue to diurese. Visit type - Emergency Visit Emergency Visit: Yes ED Registration Date: 08/19/16 Care time: The patient presented to the Emergency Department on the above date and was hospitalized for further evaluation of their emergent condition. - New Patient This patient is new to me today: No - Critical Care Critical Care patient: No
[2016-09-06] MEDS ORDERED: FUROSEMIDE 40 MG/4 ML INJECTABLE VIAL IVPB ONE (09:15)
[2016-09-06] MEDS ORDERED: PT OWN MED DRAWER 7, Y5N ONE (09:30)
[2016-09-06] MEDS: CALCIUM ACETATE 667 MG CAPSULE (FP) PO SCH ×3 (09:35→17:54)
[2016-09-06] MEDS: METOPROLOL TARTRATE 25 MG TABLET (FP) PO SCH ×2 (09:35→22:16)
[2016-09-06] MEDS: DULoxetine HCL 30 MG CAPSULE.DR (FP) PO SCH (09:36)
[2016-09-06] MEDS: ZINC SULFATE 220 MG CAPSULE (FP) PO SCH (09:36)
[2016-09-06] MEDS: PANTOPRAZOLE 20 MG TABLET (FP) PO SCH (09:37)
[2016-09-06] MEDS: FERROUS SO4 325 MG TABLET (FP) PO SCH (09:37)
[2016-09-06] MEDS: amLODIPine BESYLATE 10 MG TABLET (FP) PO SCH (09:37)
[2016-09-06] MEDS: DOXAZOSIN MESYLATE 4 MG TABLET PO SCH (09:37)
[2016-09-06] MEDS: FOLIC ACID 1 MG TABLET (FP) PO SCH (09:37)
[2016-09-06] MEDS: ASCORBIC ACID 500 MG TABLET (FP) PO SCH (09:37)
[2016-09-06] MEDS: PREGABALIN 50 MG CAPSULE PO SCH ×2 (09:43→22:18)
[2016-09-06] MEDS: SODIUM BICARBONATE 650 MG TABLET PO SCH (09:44)
[2016-09-06] MEDS: FUROSEMIDE 40 MG/4 ML INJECTABLE VIAL IVPB ONE ×2 (11:15→17:51)
[2016-09-06] MEDS: METHYL SALICYLATE/MENTHOL OINT 30 GM TUBE TP SCH ×2 (12:31→22:18)
--- NOTE | 2016-09-06 13:50 | PN ---
Progress Note (short form) - Note Progress Note: PULMONARY Still some shortness of breath, cough productive of white sputum. No fevers or chills. Last Vital Signs Temp Pulse Resp BP Pulse Ox 98.4 F 133 H 20 124/75 95 09/06/16 06:42 09/06/16 06:42 09/06/16 06:42 09/06/16 06:42 09/05/16 22:00 Gen: NAD at rest Heart: tachycardic, regular Lung: bilateral rhonchi, wheezes Abd: soft, nontender Ext: + edema CBC, BMP 09/06/16 05:40 09/06/16 05:35 Active Medications Albuterol Sulfate (Ventolin Hfa Inhaler -) 2 puff IH Q4H PRN PRN Reason: WHEEZING Albuterol/Ipratropium (Duoneb -) [address] [facility] Last Admin: 09/06/16 11:47 Dose: 1 amp Amlodipine Besylate (Norvasc -) [address] [facility] Last Admin: 09/06/16 09:37 Dose: 10 mg Ascorbic Acid (Vitamin C -) [address] [facility] Last Admin: 09/06/16 09:37 Dose: 500 mg Calcium Acetate (Phoslo -) 1,[address] [facility] Last Admin: 09/06/16 13:30 Dose: 1,334 mg Doxazosin Mesylate (Cardura -) [address] [facility] Last Admin: 09/06/16 09:37 Dose: 4 mg Duloxetine HCl (Cymbalta -) [address] [facility] Last Admin: 09/06/16 09:36 Dose: 30 mg Ferrous Sulfate (Feosol -) [address] [facility] Last Admin: 09/06/16 09:37 Dose: 325 mg Folic Acid (Folic Acid -) [address] [facility] Last Admin: 09/06/16 09:37 Dose: 1 mg IV Flush (Picc Line Flush) 8 ml IVPUSH PRN PRN PRN Reason: Protocol Insulin Aspart (Novolog Vial Sliding Scale -) [address] [facility] PRN Reason: Protocol Last Admin: 09/06/16 12:29 Dose: Not Given Insulin Detemir (Levemir Vial) 20 units SQ BID@0700,2200 [facility] Last Admin: 09/06/16 06:46 Dose: Not Given Methyl Salicylate (Sterling-Greer -) [address] [facility] Last Admin: 09/06/16 12:31 Dose: Not Given Metoprolol Tartrate (Lopressor -) [address] [facility] Last Admin: 09/06/16 09:35 Dose: 50 mg Metronidazole (Flagyl -) [address] [facility] Last Admin: 09/06/16 06:38 Dose: 500 mg Mirtazapine (Remeron -) [address] [facility] Last Admin: 09/05/16 23:44 Dose: 30 mg Miscellaneous (Duragesic Patch Waste) 1 each TD PRN PRN PRN Reason: PAIN Oxycodone HCl (Roxicodone -) 10 mg PO Q6H PRN PRN Reason: PAIN Last Admin: 09/05/16 19:58 Dose: 10 mg Pantoprazole Sodium (Protonix -) [address] [facility] Last Admin: 09/06/16 09:37 Dose: 20 mg Piperacillin Sod/Tazobactam Sod (Zosyn 3.375gm Ivpb (Pre-Docked)) 3.375 gm IVPB Q8H-IV [facility] PRN Reason: Protocol Last Admin: 09/06/16 09:45 Dose: 3.375 gm Pregabalin (Lyrica -) [address] [facility] Last Admin: 09/06/16 09:43 Dose: 100 mg Sodium Bicarbonate (Sodium Bicarbonate -) [address] [facility] Last Admin: 09/06/16 09:44 Dose: 650 mg Trazodone HCl (Desyrel -) 300 mg PO [facility] Last Admin: 09/05/16 23:45 Dose: 300 mg Zinc Sulfate (Orazinc -) [address] [facility] Last Admin: 09/06/16 09:36 Dose: 220 mg A/P Volume Overload Anemia Syncope Left Foot Ulcer Infection s/p debridement Gram Positive Bacteremia Acute on Chronic Renal Failure DM - lasix as needed - continue antibiotics - inhaled bronchodilators - transfuse PRBC - monitor H/H - O2 to keep SpO2 >90% - BIPAP as needed to assist in work of breathing - DVT prophylaxis
--- NOTE | 2016-09-06 14:06 | CON.CARD ---
Consult Consult Specialty:: Cardiology Referred by:: Hospitalist Medicine Reason for Consultation:: Dyspnea - History of Present Illness Chief Complaint: CHF History of Present Illness: 60yo man HTN, CKD (last Scr 1.3-1.5 2014), IDDM (poorly controlled), h/o osteomyelitis, PVD s/p left foot amputation, neuropathy hospitalized with syncopal episode found to have severe anemia (hgb 3.7) with FROYLAN, hyperkalemia, transfused multiple units pRBC, developed volume overload, received diuresis. Also noted to have sepsis referable to left foot osteomyelitis post debridement on abx course. - History Source History Provided By: Medical Record Limitations to Obtaining History: Poor Historian - Past Medical History COURT INTERPRETER: Yes: Peripheral Neuropathy Cardio/Vascular: Yes: HTN Gastrointestinal: Yes: GERD Psych: Yes: Depression Musculoskeletal: Yes: Other (chronic pain) Rheumatology: Yes: Other (history of osteomyletis) Endocrine: Yes: Diabetes Mellitus - Past Surgical History Past Surgical History: Yes: Amputation (transmetatarsal of Left foot) - Alcohol/Substance Use Hx Alcohol Use: No Number of Drinks Daily: 2 (weekends) - Smoking History Smoking history: Never smoked Have you smoked in the past 12 months: No Aproximately how many cigarettes per day: 0 - Social History Usual Living Arrangement: [facility] ADL: Support Services History of Recent Travel: No Home Medications - Allergies Allergies/Adverse Reactions: Allergies Allergy/AdvReac Type Severity Reaction Status Date / Time shellfish derived Allergy Severe "HIVES" Verified 08/19/16 18:52 No Known Drug Allergies Allergy Verified 08/19/16 18:52 - Home Medications Home Medications: Ambulatory Orders Amlodipine Besylate [Norvasc -] 10 mg PO DAILY 11/07/14 Ascorbate Calcium [Vitamin C] 500 mg PO DAILY 11/07/14 Duloxetine HCl 30 mg PO DAILY 11/07/14 Ferrous Sulfate [Feosol] 325 mg PO DAILY 11/07/14 Folic Acid - 1 mg PO DAILY 11/07/14 Insulin (Levemir) [Levemir Flexpen -] 30 units SQ BID 11/07/14 Insulin Aspart [Novolog Flexpen] 0 unit SQ UTDICT 11/07/14 Trazodone HCl 300 mg PO HS 11/07/14 Zinc Sulfate 220 mg PO DAILY 11/07/14 Doxazosin Mesylate [Cardura -] 4 mg PO DAILY #30 tablet 11/24/14 Aspirin [ASA -] 81 mg PO DAILY 03/08/16 Hydrochlorothiazide [Hctz -] 25 mg PO DAILY #30 tab MDD 1 08/01/16 Oxycodone HCl/Acetaminophen [Percocet 5-325 mg Tablet] 1 tab PO QID #120 tablet MDD 4 08/01/16 Albuterol Sulfate Inhaler - [Ventolin Hfa Inhaler -] 2 inh PO Q4H PRN 08/19/16 Mirtazapine [Remeron -] 30 mg PO HS 08/19/16 Pregabalin [Lyrica -] 100 mg PO BID MDD 2 08/19/16 Valsartan [Diovan] 80 mg PO DAILY 08/19/16 Family Disease History - Family Disease History Family Disease History: Diabetes: Mother Review of Systems - Review of Systems Respiratory: reports: Orthopnea, SOB Vital Signs: Vital Signs Temperature 98.4 F 09/06/16 06:42 Pulse Rate 133 H 09/06/16 06:42 Respiratory Rate 20 09/06/16 06:42 Blood Pressure 124/75 09/06/16 06:42 O2 Sat by Pulse Oximetry (%) 95 09/05/16 22:00 Constitutional: Yes: No Distress, Calm Neck: Yes: Supple Respiratory: Yes: Regular, Diminished, On Nasal O2 Gastrointestinal: Yes: Normal Bowel Sounds, Soft Cardiovascular: Yes: Regular Rate and Rhythm JVD: No Carotid Bruit: No Heart Sounds: Yes: S1, S2 Murmur: Yes: Systolic Murmur, Grade 2 Edema: Yes Edema: LLE: 1+, RLE: 1+ - Other Data Labs, Other Data: CBC, BMP 09/06/16 05:40 09/06/16 05:35 INR, PTT INR 1.26 (0.82-1.09) H 08/22/16 08:40 Fibrinogen 355.0 mg/dL (238-498) 08/20/16 17:10 Ejection Fraction %: LVEF > or = 40 % Imaging - Results Chest X-ray: Report Reviewed (Congestion, bilateral effusion) Problem List - Problems (1) Acute hypoxemic respiratory failure Code(s): J96.01 - ACUTE RESPIRATORY FAILURE WITH HYPOXIA (2) Hyperkalemia Code(s): E87.5 - HYPERKALEMIA (3) Severe anemia Code(s): D64.9 - ANEMIA, UNSPECIFIED (4) S/P amputation Code(s): Z89.9 - ACQUIRED ABSENCE OF LIMB, UNSPECIFIED (5) 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 Code(s): E11.9 - TYPE 2 DIABETES MELLITUS WITHOUT COMPLICATIONS Qualifiers: 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 type: type 2 (6) Diabetic neuropathy Code(s): E11.40 - TYPE 2 DIABETES MELLITUS WITH DIABETIC NEUROPATHY, UNSP Qualifiers: 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 type: type 2 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 complication detail: diabetic polyneuropathy Qualified Code(s): E11.42 - Type 2 diabetes mellitus with diabetic polyneuropathy (7) Foot infection Code(s): L08.9 - LOCAL INFECTION OF THE SKIN AND SUBCUTANEOUS TISSUE, UNSP (8) HTN (hypertension) Code(s): I10 - ESSENTIAL (PRIMARY) HYPERTENSION Qualifiers: Hypertension type: essential hypertension Qualified Code(s): I10 - Essential (primary) hypertension (9) Osteomyelitis Code(s): M86.9 - OSTEOMYELITIS, UNSPECIFIED (10) Acute on chronic diastolic heart failure Code(s): I50.33 - ACUTE ON CHRONIC DIASTOLIC (CONGESTIVE) HEART FAILURE Assessment/Plan 08/21/2016 Mild cLVH and mildly dilated LV and normal LV fxn, mild-mod MR, mod TR , mod AMELIA, mild ao dilatation 1. Acute hypoxic respiratory failure referavle to acute on chronic diastolic failure 2. Group g strep bacteremia secondary to left foot osteomyelitis s/p bone biopsy 08/27, debridement 08/31 3. Symptomatic anemia, Transfused 10 units PRBCs this admission 4. Stage 4 CKD with with subnephrotoic proteinuria and hyperkalemia 5. Type 2 DM c/b neuropathy 6. HTN/HCVD P:1. IV diuresis with monitor diuretic response, renal fxn and electroytes 2. Bipap as needed, wean FIO2 as saO2 tolerated 3. Continue Norvasc 10 qd, Lopressor 50 bid, resume Diovan once renal fxn stabilizes and hyperkalemia resolved 4. Complete abx course 5. DVT and GI prophylaxis 6. Thank you for consultative opportunity
--- NOTE | 2016-09-06 14:29 | PN ---
Progress Note (short form) - Note Progress Note: Renal Follow up for FROYLAN/CKD with Hyperkalemia Pt seen and examined at the bedside on NC O2 getting prbc transfusion denies any chest pain no fever or chills no N/V/D continues to have MEYER Gen: NAD on NC HEENT: No JVD CVS: RRR, No M/R Lungs: Dec BS throughout the lung [place] Abd: NT/ND Ext: trace to 1+ edema in LLE CBC, BMP 09/06/16 05:40 09/06/16 05:35 Current Medications Albuterol Sulfate (Ventolin Hfa Inhaler -) 2 puff IH Q4H PRN PRN Reason: WHEEZING Albuterol/Ipratropium (Duoneb -) 1 amp NEB QIDR [facility] Last Admin: 09/06/16 11:47 Dose: 1 amp Amlodipine Besylate (Norvasc -) 10 mg PO DAILY [facility] Last Admin: 09/06/16 09:37 Dose: 10 mg Ascorbic Acid (Vitamin C -) 500 mg PO DAILY [facility] Last Admin: 09/06/16 09:37 Dose: 500 mg Calcium Acetate (Phoslo -) 1,334 mg PO TIDCM [facility] Last Admin: 09/06/16 13:30 Dose: 1,334 mg Doxazosin Mesylate (Cardura -) 4 mg PO DAILY [facility] Last Admin: 09/06/16 09:37 Dose: 4 mg Duloxetine HCl (Cymbalta -) 30 mg PO DAILY [facility] Last Admin: 09/06/16 09:36 Dose: 30 mg Ferrous Sulfate (Feosol -) 325 mg PO DAILY [facility] Last Admin: 09/06/16 09:37 Dose: 325 mg Folic Acid (Folic Acid -) 1 mg PO DAILY [facility] Last Admin: 09/06/16 09:37 Dose: 1 mg IV Flush (Picc Line Flush) 8 ml IVPUSH PRN PRN PRN Reason: Protocol Insulin Aspart (Novolog Vial Sliding Scale -) 1 vial SQ TIDAC [facility] PRN Reason: Protocol Last Admin: 09/06/16 12:29 Dose: Not Given Insulin Detemir (Levemir Vial) 20 units SQ BID@0700,2200 [facility] Last Admin: 09/06/16 06:46 Dose: Not Given Methyl Salicylate (Sterling-Greer -) 1 applic TP BID [facility] Last Admin: 09/06/16 12:31 Dose: Not Given Metoprolol Tartrate (Lopressor -) 50 mg PO BID [facility] Last Admin: 09/06/16 09:35 Dose: 50 mg Metronidazole (Flagyl -) 500 mg PO TID [facility] Last Admin: 09/06/16 14:08 Dose: 500 mg Mirtazapine (Remeron -) 30 mg PO HS [facility] Last Admin: 09/05/16 23:44 Dose: 30 mg Miscellaneous (Duragesic Patch Waste) 1 each TD PRN PRN PRN Reason: PAIN Oxycodone HCl (Roxicodone -) 10 mg PO Q6H PRN PRN Reason: PAIN Last Admin: 09/05/16 19:58 Dose: 10 mg Pantoprazole Sodium (Protonix -) 20 mg PO DAILY [facility] Last Admin: 09/06/16 09:37 Dose: 20 mg Piperacillin Sod/Tazobactam Sod (Zosyn 3.375gm Ivpb (Pre-Docked)) 3.375 gm IVPB Q8H-IV IGGY PRN Reason: Protocol Last Admin: 09/06/16 09:45 Dose: 3.375 gm Pregabalin (Lyrica -) 100 mg PO BID [facility] Last Admin: 09/06/16 09:43 Dose: 100 mg Sodium Bicarbonate (Sodium Bicarbonate -) 650 mg PO DAILY [facility] Last Admin: 09/06/16 09:44 Dose: 650 mg Trazodone HCl (Desyrel -) 300 mg PO HS [facility] Last Admin: 09/05/16 23:45 Dose: 300 mg Zinc Sulfate (Orazinc -) 220 mg PO DAILY [facility] Last Admin: 09/06/16 09:36 Dose: 220 mg A/P 60 year old Gentleman with PMhx of CKD (baseline unclear), Hypertension, IDDM, PVD who presented s/p syncopal episode and found to have acute Anemia with Hgb of 3.7 and BUN/Cr of 41/2.7 and K of 6.8. #FROYLAN -> CKD stage 4 with subnephrotoic proteinuria Renal function stable at this time continue to trend BUN/Cr while on IV diuretics #CHF/Fluid overload continue diuretics as per cardiology #Acute on Chronic anemia getting prbc transfusion heme following #Hyperphosphatemia continue Phoslo with meals Miguel Jansen DO
--- NOTE | 2016-09-06 15:33 | PN ---
Physical Exam: SUBJECTIVE: Patient seen and examined, states he is better today; afebrile, cough improved, still really weak. OBJECTIVE: Vital Signs Period Temp Pulse Resp BP Sys/Gutierrez Pulse Ox Last 24 Hr 97.1 F-99.3 F 69-133 20-20 124-142/73-91 95-95 GENERAL: The patient is awake, alert, and fully oriented,lethargic, getting blood transfusion HEAD: Normal with no signs of trauma. NECK: Trachea midline, full range of motion, supple. LUNGS: Breath sounds equal, clear to auscultation bilaterally, no wheezes, no crackles, no accessory muscle use. HEART: Regular rate and rhythm, S1, S2 without murmur, rub or gallop. ABDOMEN: Soft, nontender, nondistended, normoactive bowel sounds, no guarding, no rebound, no hepatosplenomegaly, no masses. EXTREMITIES: 2+ pulses, warm, well-perfused, LLE edema2+; wound wrapped with wound vac; draining NEUROLOGICAL: Cranial nerves II through XII grossly intact. Normal speech, gait not observed. PSYCH: Normal mood, normal affect. SKIN: Warm, dry, normal turgor, no rashes or lesions noted CBC, BMP 09/06/16 05:40 09/06/16 05:35 Active Medications Generic Name Dose Route Start Last Admin Trade Name Freq PRN Reason Stop Dose Admin Albuterol Sulfate 2 puff 08/31/16 10:24 Ventolin Hfa Inhaler - IH Q4H PRN WHEEZING Albuterol/Ipratropium 1 amp 09/05/16 18:00 09/06/16 11:47 Duoneb - NEB 1 amp QIDR IGGY Administration Amlodipine Besylate 10 mg 09/01/16 10:00 09/06/16 09:37 Norvasc - PO 10 mg DAILY IGGY Administration Ascorbic Acid 500 mg 09/01/16 10:00 09/06/16 09:37 Vitamin C - PO 500 mg DAILY IGGY Administration Calcium Acetate 1,334 mg 08/31/16 12:00 09/06/16 13:30 Phoslo - PO 1,334 mg TIDCM IGGY Administration Doxazosin Mesylate 4 mg 09/01/16 10:00 09/06/16 09:37 Cardura - PO 4 mg DAILY IGGY Administration Duloxetine HCl 30 mg 09/01/16 10:00 09/06/16 09:36 Cymbalta - PO 30 mg DAILY IGGY Administration Ferrous Sulfate 325 mg 09/01/16 10:00 09/06/16 09:37 Feosol - PO 325 mg DAILY IGGY Administration Folic Acid 1 mg 09/01/16 10:00 09/06/16 09:37 Folic Acid - PO 1 mg DAILY IGGY Administration IV Flush 8 ml 09/03/16 09:35 Picc Line Flush IVPUSH PRN PRN Protocol Insulin Aspart 1 vial 08/31/16 11:00 09/06/16 12:29 Novolog Vial Sliding Scale - SQ Not Given TIDAC [facility] Protocol Insulin Detemir 20 units 08/31/16 22:00 09/06/16 06:46 Levemir Vial SQ Not Given BID@0700,2200 [facility] Methyl Salicylate 1 applic 08/31/16 22:00 09/06/16 12:31 Sterling-Greer - TP Not Given BID [facility] Metoprolol Tartrate 50 mg 09/01/16 10:00 09/06/16 09:35 Lopressor - PO 50 mg BID IGGY Administration Metronidazole 500 mg 09/03/16 10:00 09/06/16 14:08 Flagyl - PO 500 mg TID IGGY Administration Mirtazapine 30 mg 08/31/16 22:00 09/05/16 23:44 Remeron - PO 30 mg HS IGGY Administration Miscellaneous 1 each 08/31/16 10:24 Duragesic Patch Waste TD PRN PRN PAIN Oxycodone HCl 10 mg 09/05/16 19:40 09/05/16 19:58 Roxicodone - PO 10 mg Q6H PRN Administration PAIN Pantoprazole Sodium 20 mg 09/01/16 10:00 09/06/16 09:37 Protonix - PO 20 mg DAILY IGGY Administration Piperacillin Sod/Tazobactam Sod 3.375 gm 09/04/16 15:45 09/06/16 09:45 Zosyn 3.375gm Ivpb (Pre-Docked) IVPB 3.375 gm Q8H-IV IGGY Administration Protocol Pregabalin 100 mg 08/31/16 22:00 09/06/16 09:43 Lyrica - PO 100 mg BID IGGY Administration Sodium Bicarbonate 650 mg 09/01/16 10:00 09/06/16 09:44 Sodium Bicarbonate - PO 650 mg DAILY IGGY Administration Trazodone HCl 300 mg 08/31/16 22:00 09/05/16 23:45 Desyrel - PO 300 mg HS IGGY Administration Zinc Sulfate 220 mg 09/01/16 10:00 09/06/16 09:36 Orazinc - PO 220 mg DAILY IGGY Administration Microbiology 08/27/16 18:50 Foot - Left Heel Gram Stain - Final 08/27/16 18:50 Foot - Left Heel Wound Culture - Final NO GROWTH OF AEROBIC ORGANISMS AFTER 48 HOURS INCUBATION 08/27/16 18:50 Foot - Left Plantar Gram Stain - Final 08/27/16 18:50 Foot - Left Plantar Wound Culture - Final 08/27/16 18:50 Foot - Left Dorsum Gram Stain - Final 08/27/16 18:50 Foot - Left Dorsum Wound Culture - Final Beta Hem Streptococcus Group G 08/22/16 05:35 Blood - Peripheral Venous Blood Culture - Final NO GROWTH AFTER 5 DAYS INCUBATION 08/22/16 05:30 Blood - Peripheral Venous Blood Culture - Final NO GROWTH AFTER 5 DAYS INCUBATION 08/19/16 22:20 Blood - Peripheral Venous Blood Culture - Final Staphylococcus Epidermidis#2 Staphylococcus Epidermidis Staphylococcus Epidermidis#3 08/21/16 21:20 Foot - Left Instep Gram Stain - Final 08/21/16 21:20 Foot - Left Instep Wound Culture - Final Beta Hem Streptococcus Group G 08/19/16 22:20 Blood - Peripheral Venous Blood Culture - Final Beta Hem Streptococcus Group G Staphylococcus Epidermidis 08/21/16 03:00 Abscess Gram Stain - Final 08/21/16 03:00 Abscess Wound Culture - Final Beta Hem Streptococcus Group G 08/20/16 07:40 Urine - Urine - Catheterized Urine Culture - Final NO GROWTH OBTAINED ASSESSMENT/PLAN: Pt is a 60 yo M with PMHx of DM, HTN, diabetic neuropathy with left foot amputation, and CKD who presents to the ED s/p syncopal episode from standing position with +LOC and +head trauma. Pt was found to have a Hgb of 3.7 and WBC of 26.1 upon presentation. S/P multiple PRBCs -Sepsis due to osteomylelitis L foot -Acute on chronic CD -Hyperkalemia -hyperphosphtemia -HTN #sob improved, most likely secondary to fluid overload #sepsis secondary to osteomyelitis: s/p debridement 08/27 and 08/31 -white count,wnl ; afebrile -will DC flagyl and ceftriaxone for now; -IV zosyn for broad spectrum to cover for HAP Day 3 -wound cultures above -MRI +osteomyelitis; -old sensitivities noted from previous infection -Dr Galvan ; I&D; with bone glue therapy; if treatment fail, will proceed with transtibial amputation -switch back to flagyl, ceftriaxone as outpatient #shortness of breath; most likely secondary to congestion volume overload; r/o HAP: -zosyn (day 3)for broad spectrum , r/o HAP; will reassess on Saturday for antibiotics ID will continue to follow, thank you Problem List - Problems (1) Chronic renal insufficiency, stage III (moderate) Code(s): N18.3 - CHRONIC KIDNEY DISEASE, STAGE 3 (MODERATE) (2) 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 Code(s): E11.9 - TYPE 2 DIABETES MELLITUS WITHOUT COMPLICATIONS (3) Diabetic neuropathy Code(s): E11.40 - TYPE 2 DIABETES MELLITUS WITH DIABETIC NEUROPATHY, UNSP (4) Foot infection Code(s): L08.9 - LOCAL INFECTION OF THE SKIN AND SUBCUTANEOUS TISSUE, UNSP (5) GERD (gastroesophageal reflux disease) Code(s): K21.9 - GASTRO-ESOPHAGEAL REFLUX DISEASE WITHOUT ESOPHAGITIS (6) HTN (hypertension) Code(s): I10 - ESSENTIAL (PRIMARY) HYPERTENSION (7) Osteomyelitis Code(s): M86.9 - OSTEOMYELITIS, UNSPECIFIED Visit type - Emergency Visit Emergency Visit: Yes ED Registration Date: 08/19/16 Care time: The patient presented to the Emergency Department on the above date and was hospitalized for further evaluation of their emergent condition. - New Patient This patient is new to me today: No - Critical Care Critical Care patient: No
--- NOTE | 2016-09-06 16:16 | PN ---
Teaching Attending Note Name of Resident: Marlena Bello ATTENDING PHYSICIAN STATEMENT I saw and evaluated the patient. I reviewed the resident's note and discussed the case with the resident. I agree with the resident's findings and plan as documented. SUBJECTIVE: Patient feels weak, less SOB. OBJECTIVE: Vital Signs Period Temp Pulse Resp BP Sys/Gutierrez Pulse Ox Last 24 Hr 97.1 F-99.3 F 69-133 20-20 124-142/73-91 95-95 HEART: S1S2, RRR LUNGS: Scattered crackles ABDOMEN: Soft, non-tender, non-distended, normal BS EXTREMITIES: Trace edema ASSESSMENT AND PLAN: This is a 60-year-old man with a history of HTH, type 2 DM, peripheral neuropathy, OM of left foot, left foot TMA who presented to the ER after a syncopal episode. 1. Sepsis secondary to left foot osteomyelitis - s/p bone biopsy 08/27, debridement 08/31 - Continue Rocephin, Flagyl 2. Symptomatic anemia secondary to sepsis - Transfused 10 units PRBCs this admission - Hemoglobin 6.6 today - transfuse 1 unit PRBCs 3. Anemia secondary to chronic illness 4. Hyperkalemia - Improved 5. Acute hypoxic respiratory failure secondary to acute diastolic heart failure from fluid overload - Continue Lasix IV - Improving - remains on oxygen via NC 6. Acute kidney injury - Creatinine stable 7. Stage 4 CKD 8. Hyperphosphatemia - Continue PhosLo 9. Type 2 DM with peripheral neuropathy - Continue Levemir, Novolog sliding scale, Lyrica 10. HTN - Continue Lopressor, Norvasc, Lasix, Cardura
--- NOTE | 2016-09-06 17:37 | PN ---
Teaching Attending Note Name of Resident: Sis Barrett ATTENDING PHYSICIAN STATEMENT I saw and evaluated the patient. I reviewed the resident's note and discussed the case with the resident. I agree with the resident's findings and plan as documented. SUBJECTIVE: OBJECTIVE: ASSESSMENT AND PLAN: s/p transfusion for anemia today being diuresed continue antibiotics ?HAP group g strep bacteremia repeat cxray in am on zosyn/flagyl plan for rocephin/flagyl for foot osteo for 6 weeks when ready for discharge
[2016-09-06] MEDS ORDERED: FUROSEMIDE 40 MG/4 ML INJECTABLE VIAL ONE (17:41)
[2016-09-06 18:35] LABS: MCH 25.5 pg (25.7-33.7); MCHC 32.2 g/dl (32.0-35.9); MEAN CELL VOLUME 79.3 fl (80-96); PLATELET COUNT 334 K/MM3 (134-434); RDW 25.6 % (11.9-15.9); WHITE BLOOD COUNT 9.6 K/mm3 (4.0-10.0)
[2016-09-06] MEDS ORDERED: traZODone HCL 50 MG TABLET (FP) ONE (21:50)
[2016-09-06] MEDS: MIRTAZAPINE 15 MG TABLET (FP) PO SCH (22:17)
[2016-09-06] MEDS: oxyCODONE HCL 5 MG TABLET PO PRN (22:17)
[2016-09-06] MEDS: traZODone HCL 100 MG TABLET (FP) PO SCH (22:18)
--- NOTE | 2016-09-06 22:52 | PN ---
Progress Note (short form) - Note Progress Note: Patient seen and examined c/o SOB Last Vital Signs Temp Pulse Resp BP Pulse Ox 98.6 F 71 20 135/81 92 L 09/07/16 01:19 09/07/16 02:52 09/06/16 22:31 09/07/16 02:52 09/06/16 22:30 no murmurs, No gallops Lungs: Clear to P&A Abd: Soft, Normal bowel sounds, No organomegaly Ext:Lt. foot amputation Abnormal Lab Results 09/06/16 09/06/16 09/06/16 05:35 05:40 09:05 RBC 2.57 L Hgb 6.6 L* D Hct 20.3 L D MCV 78.9 L RDW 26.1 H BUN 61 H Creatinine 2.7 H Random Glucose 69 L D Calcium 7.6 L Crossmatch See Detail 09/06/16 18:25 RBC 3.11 L D Hgb 7.9 L D Hct 24.6 L D MCV 79.3 L RDW 25.6 H BUN Creatinine Random Glucose Calcium Crossmatch Home Medication List Medication Instructions Recorded Confirmed Type Amlodipine Besylate [Norvasc -] 10 mg PO DAILY 11/07/14 08/19/16 History Ascorbate Calcium [Vitamin C] 500 mg PO DAILY 11/07/14 08/19/16 History Duloxetine HCl 30 mg PO DAILY 11/07/14 08/19/16 History Ferrous Sulfate [Feosol] 325 mg PO DAILY 11/07/14 08/19/16 History Folic Acid - 1 mg PO DAILY 11/07/14 08/19/16 History Insulin (Levemir) [Levemir Flexpen 30 units SQ BID 11/07/14 08/19/16 History -] Insulin Aspart [Novolog Flexpen] 0 unit SQ UTDICT 11/07/14 08/19/16 History Trazodone HCl 300 mg PO HS 11/07/14 08/19/16 History Zinc Sulfate 220 mg PO DAILY 11/07/14 08/19/16 History Aspirin [ASA -] 81 mg PO DAILY 03/08/16 08/19/16 History Albuterol Sulfate Inhaler - 2 inh PO Q4H PRN 08/19/16 08/19/16 History [Ventolin Hfa Inhaler -] Mirtazapine [Remeron -] 30 mg PO HS 08/19/16 08/19/16 History Pregabalin [Lyrica -] 100 mg PO BID MDD 2 08/19/16 08/21/16 History Valsartan [Diovan] 80 mg PO DAILY 08/19/16 08/19/16 History Active Medications Generic Name Dose Route Start Last Admin Trade Name Kashifq PRN Reason Stop Dose Admin Albuterol Sulfate 2 puff 08/31/16 10:24 Ventolin Hfa Inhaler - IH Q4H PRN WHEEZING Albuterol/Ipratropium 1 amp 09/05/16 18:00 09/06/16 23:55 Duoneb - NEB 1 amp QIDR IGGY Administration Amlodipine Besylate 10 mg 09/01/16 10:00 09/06/16 09:37 Norvasc - PO 10 mg DAILY IGGY Administration Ascorbic Acid 500 mg 09/01/16 10:00 09/06/16 09:37 Vitamin C - PO 500 mg DAILY IGGY Administration Calcium Acetate 1,334 mg 08/31/16 12:00 09/06/16 17:54 Phoslo - PO 1,334 mg TIDCM IGGY Administration Doxazosin Mesylate 4 mg 09/01/16 10:00 09/06/16 09:37 Cardura - PO 4 mg DAILY IGGY Administration Duloxetine HCl 30 mg 09/01/16 10:00 09/06/16 09:36 Cymbalta - PO 30 mg DAILY IGGY Administration Ferrous Sulfate 325 mg 09/01/16 10:00 09/06/16 09:37 Feosol - PO 325 mg DAILY IGGY Administration Folic Acid 1 mg 09/01/16 10:00 09/06/16 09:37 Folic Acid - PO 1 mg DAILY IGGY Administration IV Flush 8 ml 09/03/16 09:35 Picc Line Flush IVPUSH PRN PRN Protocol Insulin Aspart 1 vial 08/31/16 11:00 09/06/16 17:53 Novolog Vial Sliding Scale - SQ 4 unit TIDAC IGGY Administration Protocol Insulin Detemir 20 units 08/31/16 22:00 09/06/16 22:19 Levemir Vial SQ Not Given BID@0700,2200 IGG[facility] Methyl Salicylate 1 applic 08/31/16 22:00 09/06/16 22:18 Sterling-Greer - TP 1 applic BID IGGY Administration Metoprolol Tartrate 50 mg 09/01/16 10:00 09/06/16 22:16 Lopressor - PO 50 mg BID IGGY Administration Metronidazole 500 mg 09/03/16 10:00 09/06/16 22:16 Flagyl - PO 500 mg TID IGGY Administration Mirtazapine 30 mg 08/31/16 22:00 09/06/16 22:17 Remeron - PO 30 mg HS IGGY Administration Miscellaneous 1 each 08/31/16 10:24 Duragesic Patch Waste TD PRN PRN PAIN Oxycodone HCl 10 mg 09/05/16 19:40 09/06/16 22:17 Roxicodone - PO 10 mg Q6H PRN Administration PAIN Pantoprazole Sodium 20 mg 09/01/16 10:00 09/06/16 09:37 Protonix - PO 20 mg DAILY IGGY Administration Piperacillin Sod/Tazobactam Sod 3.375 gm 09/04/16 15:45 09/07/16 02:44 Zosyn 3.375gm Ivpb (Pre-Docked) IVPB 3.375 gm Q8H-IV IGGY Administration Protocol Pregabalin 100 mg 08/31/16 22:00 09/06/16 22:18 Lyrica - PO 100 mg BID IGGY Administration Sodium Bicarbonate 650 mg 09/01/16 10:00 09/06/16 09:44 Sodium Bicarbonate - PO 650 mg DAILY IGGY Administration Trazodone HCl 300 mg 08/31/16 22:00 09/06/16 22:18 Desyrel - PO 300 mg HS IGGY Administration Zinc Sulfate 220 mg 09/01/16 10:00 09/06/16 09:36 Orazinc - PO 220 mg DAILY IGGY Administration a/p 60 y/o male, with DM, h/o osteomyelitis, fell at assisted living, hit his face and neck. syncopal episode from profound anemia PVD, debridement of Lt. foot streptococcal bacteremia ? hospital acquired pneumonia CKD Fluid overload Microcytic anemia : Hgb 6.6 s/p PRBCs SEVERE anemia of chronic disease from ongoing infections and advanced CKD plus iron deficiency --iron saturation of 5% EGD/colonoscopy few months ago were nl per patient, s/p polypectomies LDH--nl making hemolysis less likely Repeat ESR/CRP/iron studies/TSH/fT4 B12/folate/LDH/protein studies were not s/o any disorder Would consider iv iron and once iron replaced could consider Procrit per renal protocol Leukocytosis/thrombocytosis:? 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 No e/o moniclonal protein
[2016-09-07] MEDS: PIPERACILLIN/TAZOB 3.375 GM/50 ML PRE-DOCKED IVPB SCH ×3 (02:44→18:45)
[2016-09-07] MEDS: metroNIDAZOLE 250 MG TABLET PO SCH (06:48)
[2016-09-07] MEDS: INSULIN DETEMIR 100 UNITS/ML MDV SQ SCH ×2 (06:49→23:25)
[2016-09-07] MEDS: INSULIN SLIDING SCALE (NOVOLOG) 1 VIAL SQ SCH ×3 (06:50→18:23)
[2016-09-07] MEDS: ALBUTEROL SO4 2.5/IPRATROPIUM 0.5 INH SOL 3 ML VIAL.NEB. NEB SCH ×4 (06:58→23:34)
[2016-09-07 08:49] LABS: BASOPHIL 0.6 % (0-2.0); EOSINOPHIL 8.6 % (0-4.5); MCH 25.7 pg (25.7-33.7); MCHC 32.2 g/dl (32.0-35.9); MEAN CELL VOLUME 79.8 fl (80-96); MEAN PLT VOLUME 8.3 fl (7.5-11.1); PLATELET COUNT 304 K/MM3 (134-434); RDW 26.2 % (11.9-15.9)
[2016-09-07 09:32] LABS: ALBUMIN 1.9 g/dl (3.4-5.0); BILIRUBIN,TOTAL 0.3 mg/dL (0.2-1.0); CALCIUM 8.1 mg/dL (8.5-10.1); COCKROFT - GAULT 35.66; MAGNESIUM 1.9 mg/dL (1.8-2.4); PHOSPHOROUS 4.4 mg/dL (2.5-4.9); TOT PROT 7.3 g/dl (6.4-8.2)
[2016-09-07 09:34] LABS: ANISOCYTOSIS 2+; HYPOCHROMIA 1+; MICROCYTOSIS 1+; PLATELET ESTIMATE ADEQUATE (NORMAL); POLYCHROMASIA 1+
[2016-09-07] MEDS: CALCIUM ACETATE 667 MG CAPSULE (FP) PO SCH ×3 (09:58→18:23)
[2016-09-07] MEDS: FOLIC ACID 1 MG TABLET (FP) PO SCH (09:58)
[2016-09-07] MEDS: SODIUM BICARBONATE 650 MG TABLET PO SCH (09:58)
[2016-09-07] MEDS: METOPROLOL TARTRATE 25 MG TABLET (FP) PO SCH ×2 (09:58→23:22)
[2016-09-07] MEDS: PANTOPRAZOLE 20 MG TABLET (FP) PO SCH (09:58)
[2016-09-07] MEDS: FERROUS SO4 325 MG TABLET (FP) PO SCH (09:58)
[2016-09-07] MEDS: ASCORBIC ACID 500 MG TABLET (FP) PO SCH (09:58)
[2016-09-07] MEDS: amLODIPine BESYLATE 10 MG TABLET (FP) PO SCH (09:58)
[2016-09-07] MEDS: PREGABALIN 50 MG CAPSULE PO SCH ×2 (09:58→23:22)
[2016-09-07] MEDS: ZINC SULFATE 220 MG CAPSULE (FP) PO SCH (09:59)
[2016-09-07] MEDS: DULoxetine HCL 30 MG CAPSULE.DR (FP) PO SCH (09:59)
--- NOTE | 2016-09-07 11:12 | PN ---
Teaching Attending Note Name of Resident: Marlena Bello ATTENDING PHYSICIAN STATEMENT I saw and evaluated the patient. I reviewed the resident's note and discussed the case with the resident. I agree with the resident's findings and plan as documented. SUBJECTIVE: No complaints. OBJECTIVE: Vital Signs Period Temp Pulse Resp BP Sys/Gutierrez Pulse Ox Last 24 Hr 97.5 F-98.8 F 62-81 18-20 135-157/72-88 92-92 HEART: S1S2, RRR LUNGS: Clear ABDOMEN: Soft, non-tender, non-distended, normal BS EXTREMITIES: Trace edema ASSESSMENT AND PLAN: This is a 60-year-old man with a history of HTH, type 2 DM, peripheral neuropathy, OM of left foot, left foot TMA who presented to the ER after a syncopal episode. 1. Sepsis secondary to left foot osteomyelitis - s/p bone biopsy 08/27, debridement 08/31 - Continue Rocephin, Flagyl 2. Symptomatic anemia secondary to sepsis - Transfused 11 units PRBCs this admission 3. Anemia secondary to chronic illness 4. Hyperkalemia - Improved 5. Acute hypoxic respiratory failure secondary to acute diastolic heart failure from fluid overload - Improved - Continue Lasix as needed 6. Acute kidney injury - Creatinine increasing - possibly secondary to IV Lasix 7. Stage 4 CKD 8. Hyperphosphatemia - Continue PhosLo 9. Type 2 DM with peripheral neuropathy - Continue Levemir, Novolog sliding scale, Lyrica 10. HTN - Continue Lopressor, Norvasc, Lasix, Cardura
--- NOTE | 2016-09-07 11:54 | PN ---
Progress Note (short form) - Note Progress Note: awake and alert, feels better s/p bone biopsy 5/1 s/p further debridement 5/5 s/p transfusion Vital Signs Period Temp Pulse Resp BP Sys/Gutierrez Pulse Ox Last 24 Hr 97.5 F-98.8 F 62-81 18-20 135-157/72-88 92-93 cor-rrr lungs bilateral rhonchi, wheeze abd soft,nt ext +vac CBC, BMP 09/07/16 07:30 09/07/16 07:30 Microbiology 08/27/16 18:50 Foot - Left Heel Gram Stain - Final 08/27/16 18:50 Foot - Left Heel Wound Culture - Final NO GROWTH OF AEROBIC ORGANISMS AFTER 48 HOURS INCUBATION 08/27/16 18:50 Foot - Left Plantar Gram Stain - Final 08/27/16 18:50 Foot - Left Plantar Wound Culture - Final 08/27/16 18:50 Foot - Left Dorsum Gram Stain - Final 08/27/16 18:50 Foot - Left Dorsum Wound Culture - Final Beta Hem Streptococcus Group G 08/22/16 05:35 Blood - Peripheral Venous Blood Culture - Final NO GROWTH AFTER 5 DAYS INCUBATION 08/22/16 05:30 Blood - Peripheral Venous Blood Culture - Final NO GROWTH AFTER 5 DAYS INCUBATION 08/19/16 22:20 Blood - Peripheral Venous Blood Culture - Final Staphylococcus Epidermidis#2 Staphylococcus Epidermidis Staphylococcus Epidermidis#3 08/21/16 21:20 Foot - Left Instep Gram Stain - Final 08/21/16 21:20 Foot - Left Instep Wound Culture - Final Beta Hem Streptococcus Group G 08/19/16 22:20 Blood - Peripheral Venous Blood Culture - Final Beta Hem Streptococcus Group G Staphylococcus Epidermidis 08/21/16 03:00 Abscess Gram Stain - Final 08/21/16 03:00 Abscess Wound Culture - Final Beta Hem Streptococcus Group G 08/20/16 07:40 Urine - Urine - Catheterized Urine Culture - Final NO GROWTH OBTAINED TTE no vegetation a/p bacteremia- group G strep/staph epi foot abscess s/p debridement chf- possible pneumonia RLL Osteomyelitis s/p bone biopsy- group G strep is the pathogen, anemia-refractory feli/ckd diabetes s/p vanco 2 weeks for staph epi bacteremia currently on zosyn for possible HAP day #3 plan ceftriaxone 2 grams daily for 6 weeks total for osteomyelitis no need for snf flagyl- spoke to micro- no anaerobes isolated on any of the wound cultures
[2016-09-07] MEDS: METHYL SALICYLATE/MENTHOL OINT 30 GM TUBE TP SCH ×2 (12:25→23:29)
[2016-09-07] MEDS: oxyCODONE HCL 5 MG TABLET PO PRN ×2 (12:29→18:41)
--- NOTE | 2016-09-07 13:14 | PN ---
Progress Note, Physician Chief Complaint: F/U after incision and drainage of deep abscess 1 week ago and s/p 1 day following multiple bone biopsies of the medial and distal aspect of the left foot in light of a magnetic resonance imaging study highly suggestive of osteomyelitis of the residual metatarsals, greater and lesser tarsal bones and of the tibia and fibula. He is also s/p extensive osseous debridement (1 week ago ) of the focus of the infection at the region of the subtalar articulation and posterior superior calcaneous with insertion of vancomycin and gentamicin infused bio-absorbable antibiotic beads. ( Stimulans) History of Present Illness: Patient with long history of osteomyelitis of the LLL is followed after incision and drainage of abscess, then bone biopsies, and finally osseous debridement of the greater tarsus with antibiotic infused Stimulans insertion. and is to be evaluated for management of osteomyelitis of all osseous structures of the foot and the distal leg as well as wound care. - Current Medication List Current Medications: Active Medications Albuterol Sulfate (Ventolin Hfa Inhaler -) 2 puff IH Q4H PRN PRN Reason: WHEEZING Albuterol/Ipratropium (Duoneb -) 1 amp NEB QIDR [facility]CLUD[facility] Last Admin: 09/07/16 11:55 Dose: 1 amp Amlodipine Besylate (Norvasc -) 10 mg PO DAILY [facility] Last Admin: 09/07/16 09:58 Dose: 10 mg Ascorbic Acid (Vitamin C -) 500 mg PO DAILY [facility] Last Admin: 09/07/16 09:58 Dose: 500 mg Calcium Acetate (Phoslo -) 1,334 mg PO TIDCM [facility] Last Admin: 09/07/16 12:26 Dose: 1,334 mg Doxazosin Mesylate (Cardura -) 4 mg PO DAILY [facility] Last Admin: 09/06/16 09:37 Dose: 4 mg Duloxetine HCl (Cymbalta -) 30 mg PO DAILY [facility] Last Admin: 09/07/16 09:59 Dose: 30 mg Ferrous Sulfate (Feosol -) 325 mg PO DAILY [facility] Last Admin: 09/07/16 09:58 Dose: 325 mg Folic Acid (Folic Acid -) 1 mg PO DAILY [facility] Last Admin: 09/07/16 09:58 Dose: 1 mg IV Flush (Picc Line Flush) 8 ml IVPUSH PRN PRN PRN Reason: Protocol Insulin Aspart (Novolog Vial Sliding Scale -) 1 vial SQ TIDAC IGGY PRN Reason: Protocol Last Admin: 09/07/16 12:25 Dose: Not Given Insulin Detemir (Levemir Vial) 20 units SQ BID@0700,2200 [facility] Last Admin: 09/07/16 06:49 Dose: 20 units Lactobacillus Acidophilus (Bacid -) 1 tab PO DAILY [facility] Methyl Salicylate (Sterling-Greer -) 1 applic TP BID COUNT [facility]CLUDES [facility] Last Admin: 09/07/16 12:25 Dose: Not Given Metoprolol Tartrate (Lopressor -) 50 mg PO BID COUNT [facility]CLUD[facility] Last Admin: 09/07/16 09:58 Dose: 50 mg Mirtazapine (Remeron -) 30 mg PO HS [facility] Last Admin: 09/06/16 22:17 Dose: 30 mg Miscellaneous (Duragesic Patch Waste) 1 each TD PRN PRN PRN Reason: PAIN Oxycodone HCl (Roxicodone -) 10 mg PO Q6H PRN PRN Reason: PAIN Last Admin: 09/07/16 12:29 Dose: 10 mg Pantoprazole Sodium (Protonix -) 20 mg PO DAILY [facility] Last Admin: 09/07/16 09:58 Dose: 20 mg Piperacillin Sod/Tazobactam Sod (Zosyn 3.375gm Ivpb (Pre-Docked)) 3.375 gm IVPB Q8H-IV IGGY PRN Reason: Protocol Last Admin: 09/07/16 09:58 Dose: 3.375 gm Pregabalin (Lyrica -) 100 mg PO BID COUNT [facility] Last Admin: 09/07/16 09:58 Dose: 100 mg Sodium Bicarbonate (Sodium Bicarbonate -) 650 mg PO DAILY [facility] Last Admin: 09/07/16 09:58 Dose: 650 mg Trazodone HCl (Desyrel -) 300 mg PO HS [facility] Last Admin: 09/06/16 22:18 Dose: 300 mg Zinc Sulfate (Orazinc -) 220 mg PO DAILY [facility] Last Admin: 09/07/16 09:59 Dose: 220 mg - Objective Vital Signs: Vital Signs Temperature 36.4 C L 09/07/16 10:00 Pulse Rate 66 09/07/16 10:00 Respiratory Rate 20 09/07/16 10:00 Blood Pressure 138/80 09/07/16 10:00 O2 Sat by Pulse Oximetry (%) 98 09/07/16 11:54 Constitutional: Yes: Well Nourished, No Distress, Calm Eyes: Yes: WNL Respiratory: Yes: On Nasal O2 ...Rectal Exam: Yes: Deferred Musculoskeletal: Yes: Other (multiple amputations both feet including a transmetatarsal resection of the left foot.) Extremities: Yes: Amputation Edema: LLE: 1+, RLE: Trace Peripheral Pulses WNL: Yes Peripheral Pulses: Left Doralis Pedis: 2+, Right Dorsalis Pedis: 2+ Integumentary: Yes: Incision Wound/Incision: Yes: Clean/Dry, Dressing Dry and Intact, Dressing Removed, Other ([employer]CI wound VAC working well with excellent granulation formation and maybe 30 % slough (further debridement will be needed in the near future)) Neurological: Yes: Numbness, Paresthesia, Pre-Existing Deficit, Tingling ...Motor Strength: WNL Psychiatric: Yes: WNL, Alert, Oriented Additional Findings/Remarks: Removed [employer]CI Wound VAC and observed the wound with the infectious disease cardiology clinical consultant Dr. Gutierrez. All impressed with the degree of granulation and minimal slough albeit further debridements will be needed. Re inserted antibiotic infused (gentamicin and Vancomycin) Stimulans bio-absorbable antibiotic beads WHICH WILL NEED TO BE KEPT IN AND RE-INSERTED AT EVERY DRESSING CHANGE.PLEASE. [employer]CI wound VAC applied at 125 mm Hg continuous at this encounter Acknowledge delay in SNF transfer for parenteral antibiotic chemotherapy due to pulmonary issues. Patient to follow with me every Saturday starting this Saturday (assuming discharged to SNF) at [facility] [address] [place] [address] Building [address] Floor [phone] already has an appointment this Saturday at 13h00 (1 PM) Sterile saline wet to dry dressing WITH REINSERTION OF BEADS acceptable upon transfer to SNF but DEFINITELY NEEDS NWPT (VAC) AT SNF Time spent at this encounter with discussion with patient nurse and other physicians exceeded 40 minutes Labs: CBC, BMP 09/07/16 07:30 09/07/16 07:30 INR, PTT INR 1.26 (0.82-1.09) H 08/22/16 08:40 Fibrinogen 355.0 mg/dL (238-498) 08/20/16 17:10
--- NOTE | 2016-09-07 13:32 | PN ---
Progress Note (short form) - Note Progress Note: Renal Follow up for FROYLAN/CKD with Hyperkalemia Pt seen and examined at the bedside getting Neb Tx reports continued sob no chest pain, fever, chills no N/V/D Vital Signs Temperature 97.5 F L 09/07/16 10:00 Pulse Rate 66 09/07/16 10:00 Respiratory Rate 20 09/07/16 10:00 Blood Pressure 138/80 09/07/16 10:00 O2 Sat by Pulse Oximetry (%) 98 09/07/16 11:54 Gen: NAD on NC HEENT: No JVD CVS: RRR, No M/R Lungs: Dec BS throughout the lung [place] , + wheeze Abd: NT/ND Ext: trace to 1+ edema in LLE CBC, BMP 09/07/16 07:30 09/07/16 07:30 Laboratory Tests 09/07/16 07:30 Calcium 8.1 L Phosphorus 4.4 Magnesium 1.9 Albumin 1.9 L Current Medications Albuterol Sulfate (Ventolin Hfa Inhaler -) 2 puff IH Q4H PRN PRN Reason: WHEEZING Albuterol/Ipratropium (Duoneb -) 1 amp NEB QIDR [facility] Last Admin: 09/07/16 11:55 Dose: 1 amp Amlodipine Besylate (Norvasc -) 10 mg PO DAILY [facility] Last Admin: 09/07/16 09:58 Dose: 10 mg Ascorbic Acid (Vitamin C -) 500 mg PO DAILY [facility] Last Admin: 09/07/16 09:58 Dose: 500 mg Calcium Acetate (Phoslo -) 1,334 mg PO TIDCM [facility] Last Admin: 09/07/16 12:26 Dose: 1,334 mg Doxazosin Mesylate (Cardura -) 4 mg PO DAILY [facility] Last Admin: 09/06/16 09:37 Dose: 4 mg Duloxetine HCl (Cymbalta -) 30 mg PO DAILY [facility] Last Admin: 09/07/16 09:59 Dose: 30 mg Ferrous Sulfate (Feosol -) 325 mg PO DAILY [facility] Last Admin: 09/07/16 09:58 Dose: 325 mg Folic Acid (Folic Acid -) 1 mg PO DAILY [facility] Last Admin: 09/07/16 09:58 Dose: 1 mg IV Flush (Picc Line Flush) 8 ml IVPUSH PRN PRN PRN Reason: Protocol Insulin Aspart (Novolog Vial Sliding Scale -) 1 vial SQ TIDAC [facility] PRN Reason: Protocol Last Admin: 09/07/16 12:25 Dose: Not Given Insulin Detemir (Levemir Vial) 20 units SQ BID@0700,2200 [facility] Last Admin: 09/07/16 06:49 Dose: 20 units Lactobacillus Acidophilus (Bacid -) 1 tab PO DAILY [facility] Methyl Salicylate (Sterling-Greer -) 1 applic TP BID [facility] Last Admin: 09/07/16 12:25 Dose: Not Given Metoprolol Tartrate (Lopressor -) 50 mg PO BID [facility] Last Admin: 09/07/16 09:58 Dose: 50 mg Mirtazapine (Remeron -) 30 mg PO HS [facility] Last Admin: 09/06/16 22:17 Dose: 30 mg Miscellaneous (Duragesic Patch Waste) 1 each TD PRN PRN PRN Reason: PAIN Oxycodone HCl (Roxicodone -) 10 mg PO Q6H PRN PRN Reason: PAIN Last Admin: 09/07/16 12:29 Dose: 10 mg Pantoprazole Sodium (Protonix -) 20 mg PO DAILY [facility] Last Admin: 09/07/16 09:58 Dose: 20 mg Piperacillin Sod/Tazobactam Sod (Zosyn 3.375gm Ivpb (Pre-Docked)) 3.375 gm IVPB Q8H-IV IGGY PRN Reason: Protocol Last Admin: 09/07/16 09:58 Dose: 3.375 gm Pregabalin (Lyrica -) 100 mg PO BID [facility] Last Admin: 09/07/16 09:58 Dose: 100 mg Sodium Bicarbonate (Sodium Bicarbonate -) 650 mg PO DAILY [facility] Last Admin: 09/07/16 09:58 Dose: 650 mg Trazodone HCl (Desyrel -) 300 mg PO HS [facility] Last Admin: 09/06/16 22:18 Dose: 300 mg Zinc Sulfate (Orazinc -) 220 mg PO DAILY [facility] Last Admin: 09/07/16 09:59 Dose: 220 mg A/P 60 year old Gentleman with PMhx of CKD (baseline unclear), Hypertension, IDDM, PVD who presented s/p syncopal episode and found to have acute Anemia with Hgb of 3.7 and BUN/Cr of 41/2.7 and K of 6.8. #FROYLAN -> CKD stage 4 with subnephrotoic proteinuria BUN/Cr uptrending with Lasix diuresis CXR shows continued congestion but ? if there is underlying infectious process continue Lasix PRN for suspected volume overload #CHF/Fluid overload diuretics PRN continue Abx as per ID trend clinical status #Acute on Chronic anemia Transfuse PRBC as needed will start SC Epogen 3x weekly Heme following #Hyperphosphatemia continue Phoslo with meals Miguel Jansen DO
--- NOTE | 2016-09-07 14:41 | PN ---
Progress Note, Physician History of Present Illness: pulmonary alert,feeling better,-resp distress - Current Medication List Current Medications: Active Medications Albuterol Sulfate (Ventolin Hfa Inhaler -) 2 puff IH Q4H PRN PRN Reason: WHEEZING Albuterol/Ipratropium (Duoneb -) 1 amp NEB QIDR [facility] Last Admin: 09/07/16 11:55 Dose: 1 amp Amlodipine Besylate (Norvasc -) 10 mg PO DAILY [facility] Last Admin: 09/07/16 09:58 Dose: 10 mg Ascorbic Acid (Vitamin C -) 500 mg PO DAILY [facility] Last Admin: 09/07/16 09:58 Dose: 500 mg Calcium Acetate (Phoslo -) 1,334 mg PO TIDCM [facility] Last Admin: 09/07/16 12:26 Dose: 1,334 mg Doxazosin Mesylate (Cardura -) 4 mg PO DAILY [facility] Last Admin: 09/06/16 09:37 Dose: 4 mg Duloxetine HCl (Cymbalta -) 30 mg PO DAILY [facility] Last Admin: 09/07/16 09:59 Dose: 30 mg Ferrous Sulfate (Feosol -) 325 mg PO DAILY [facility] Last Admin: 09/07/16 09:58 Dose: 325 mg Folic Acid (Folic Acid -) 1 mg PO DAILY [facility] Last Admin: 09/07/16 09:58 Dose: 1 mg IV Flush (Picc Line Flush) 8 ml IVPUSH PRN PRN PRN Reason: Protocol Insulin Aspart (Novolog Vial Sliding Scale -) 1 vial SQ TIDAC [facility] PRN Reason: Protocol Last Admin: 09/07/16 12:25 Dose: Not Given Insulin Detemir (Levemir Vial) 20 units SQ BID@0700,2200 [facility] Last Admin: 09/07/16 06:49 Dose: 20 units Lactobacillus Acidophilus (Bacid -) 1 tab PO DAILY [facility] Methyl Salicylate (Sterling-Greer -) 1 applic TP BID [facility] Last Admin: 09/07/16 12:25 Dose: Not Given Metoprolol Tartrate (Lopressor -) 50 mg PO BID [facility] Last Admin: 09/07/16 09:58 Dose: 50 mg Mirtazapine (Remeron -) 30 mg PO HS [facility] Last Admin: 09/06/16 22:17 Dose: 30 mg Miscellaneous (Duragesic Patch Waste) 1 each TD PRN PRN PRN Reason: PAIN Oxycodone HCl (Roxicodone -) 10 mg PO Q6H PRN PRN Reason: PAIN Last Admin: 09/07/16 12:29 Dose: 10 mg Pantoprazole Sodium (Protonix -) 20 mg PO DAILY [facility] Last Admin: 09/07/16 09:58 Dose: 20 mg Piperacillin Sod/Tazobactam Sod (Zosyn 3.375gm Ivpb (Pre-Docked)) 3.375 gm IVPB Q8H-IV IGGY PRN Reason: Protocol Last Admin: 09/07/16 09:58 Dose: 3.375 gm Pregabalin (Lyrica -) 100 mg PO BID [facility] Last Admin: 09/07/16 09:58 Dose: 100 mg Sodium Bicarbonate (Sodium Bicarbonate -) 650 mg PO DAILY [facility] Last Admin: 09/07/16 09:58 Dose: 650 mg Trazodone HCl (Desyrel -) 300 mg PO HS [facility] Last Admin: 09/06/16 22:18 Dose: 300 mg Zinc Sulfate (Orazinc -) 220 mg PO DAILY [facility] Last Admin: 09/07/16 09:59 Dose: 220 mg - Objective Vital Signs: Vital Signs Temperature 97.5 F L 09/07/16 10:00 Pulse Rate 66 09/07/16 10:00 Respiratory Rate 20 09/07/16 10:00 Blood Pressure 138/80 09/07/16 10:00 O2 Sat by Pulse Oximetry (%) 98 09/07/16 11:54 Constitutional: Yes: Well Nourished, Calm Eyes: Yes: WNL HENT: Yes: WNL Neck: Yes: Supple Cardiovascular: Yes: Regular Rate and Rhythm, S1, S2 Respiratory: Yes: Rhonchi (stephanie wheezes and rhonchi), Wheezes Gastrointestinal: Yes: Normal Bowel Sounds, Soft Extremities: Yes: Amputation (r transmetatarsal amputation,wound vac in place draining) Edema: Yes Labs: CBC, BMP 09/07/16 07:30 09/07/16 07:30 INR, PTT INR 1.26 (0.82-1.09) H 08/22/16 08:40 Fibrinogen 355.0 mg/dL (238-498) 08/20/16 17:10 - ....Imaging Chest X-ray: Report Reviewed, Image Reviewed (bilateral congestion) Problem List - Problems (1) FROYLAN (acute kidney injury) Code(s): N17.9 - ACUTE KIDNEY FAILURE, UNSPECIFIED (2) Severe anemia Code(s): D64.9 - ANEMIA, UNSPECIFIED (3) Hyperglycemia Code(s): R73.9 - HYPERGLYCEMIA, UNSPECIFIED (4) Osteoarthritis Code(s): M19.90 - UNSPECIFIED OSTEOARTHRITIS, UNSPECIFIED SITE (5) COPD with emphysema Code(s): J43.9 - EMPHYSEMA, UNSPECIFIED (6) Chronic renal insufficiency, stage III (moderate) Code(s): N18.3 - CHRONIC KIDNEY DISEASE, STAGE 3 (MODERATE) (7) 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 Code(s): E11.9 - TYPE 2 DIABETES MELLITUS WITHOUT COMPLICATIONS Qualifiers: 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 type: type 2 (8) Diabetic neuropathy Code(s): E11.40 - TYPE 2 DIABETES MELLITUS WITH DIABETIC NEUROPATHY, UNSP Qualifiers: 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 type: type 2 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 complication detail: diabetic polyneuropathy Qualified Code(s): E11.42 - Type 2 diabetes mellitus with diabetic polyneuropathy (9) GERD (gastroesophageal reflux disease) Code(s): K21.9 - GASTRO-ESOPHAGEAL REFLUX DISEASE WITHOUT ESOPHAGITIS (10) HTN (hypertension) Code(s): I10 - ESSENTIAL (PRIMARY) HYPERTENSION Qualifiers: Hypertension type: essential hypertension Qualified Code(s): I10 - Essential (primary) hypertension (11) Osteomyelitis Code(s): M86.9 - OSTEOMYELITIS, UNSPECIFIED (12) Acute hypoxemic respiratory failure Code(s): J96.01 - ACUTE RESPIRATORY FAILURE WITH HYPOXIA Assessment/Plan ASSESSMENT AND PLAN: Acute hypoxemic respiratory failure improving Fluid overload Syncope Anemia Left foot ulcer infection s/p debridement Gram Positive Bacteremia Sepsis Acute on Chronic Renal Failure Hyperkalemia DM (?) Nerve impingement causing symptoms NIPPV prn o2 lasix - Local wound care - Pain control - glucose control - PT/OT - monitor chest x-ray - strict I+Os - inhaled bronchodilators DR BAUM
--- NOTE | 2016-09-07 16:05 | PN ---
Progress Note, Physician History of Present Illness: Dyspnea improved with diuresis. - Current Medication List Current Medications: Active Medications Albuterol Sulfate (Ventolin Hfa Inhaler -) 2 puff IH Q4H PRN PRN Reason: WHEEZING Albuterol/Ipratropium (Duoneb -) 1 amp NEB QIDR [facility] Last Admin: 09/07/16 11:55 Dose: 1 amp Amlodipine Besylate (Norvasc -) 10 mg PO DAILY [facility] Last Admin: 09/07/16 09:58 Dose: 10 mg Ascorbic Acid (Vitamin C -) 500 mg PO DAILY [facility] Last Admin: 09/07/16 09:58 Dose: 500 mg Calcium Acetate (Phoslo -) 1,334 mg PO TIDCM [facility] Last Admin: 09/07/16 12:26 Dose: 1,334 mg Doxazosin Mesylate (Cardura -) 4 mg PO DAILY [facility] Last Admin: 09/06/16 09:37 Dose: 4 mg Duloxetine HCl (Cymbalta -) 30 mg PO DAILY [facility] Last Admin: 09/07/16 09:59 Dose: 30 mg Ferrous Sulfate (Feosol -) 325 mg PO DAILY [facility] Last Admin: 09/07/16 09:58 Dose: 325 mg Folic Acid (Folic Acid -) 1 mg PO DAILY [facility] Last Admin: 09/07/16 09:58 Dose: 1 mg IV Flush (Picc Line Flush) 8 ml IVPUSH PRN PRN PRN Reason: Protocol Insulin Aspart (Novolog Vial Sliding Scale -) 1 vial SQ TIDAC [facility] PRN Reason: Protocol Last Admin: 09/07/16 12:25 Dose: Not Given Insulin Detemir (Levemir Vial) 20 units SQ BID@0700,2200 [facility] Last Admin: 09/07/16 06:49 Dose: 20 units Lactobacillus Acidophilus (Bacid -) 1 tab PO DAILY [facility] Methyl Salicylate (Sterling-Greer -) 1 applic TP BID [facility] Last Admin: 09/07/16 12:25 Dose: Not Given Metoprolol Tartrate (Lopressor -) 50 mg PO BID [facility] Last Admin: 09/07/16 09:58 Dose: 50 mg Mirtazapine (Remeron -) 30 mg PO HS [facility] Last Admin: 09/06/16 22:17 Dose: 30 mg Miscellaneous (Duragesic Patch Waste) 1 each TD PRN PRN PRN Reason: PAIN Oxycodone HCl (Roxicodone -) 10 mg PO Q6H PRN PRN Reason: PAIN Last Admin: 09/07/16 12:29 Dose: 10 mg Pantoprazole Sodium (Protonix -) 20 mg PO DAILY [facility] Last Admin: 09/07/16 09:58 Dose: 20 mg Piperacillin Sod/Tazobactam Sod (Zosyn 3.375gm Ivpb (Pre-Docked)) 3.375 gm IVPB Q8H-IV [facility] PRN Reason: Protocol Last Admin: 09/07/16 09:58 Dose: 3.375 gm Pregabalin (Lyrica -) 100 mg PO BID [facility] Last Admin: 09/07/16 09:58 Dose: 100 mg Sodium Bicarbonate (Sodium Bicarbonate -) 650 mg PO DAILY [facility] Last Admin: 09/07/16 09:58 Dose: 650 mg Trazodone HCl (Desyrel -) 300 mg PO HS [facility] Last Admin: 09/06/16 22:18 Dose: 300 mg Zinc Sulfate (Orazinc -) 220 mg PO DAILY [facility] Last Admin: 09/07/16 09:59 Dose: 220 mg - Objective Vital Signs: Vital Signs Temperature 97.4 F L 09/07/16 14:00 Pulse Rate 62 09/07/16 14:00 Respiratory Rate 20 09/07/16 14:00 Blood Pressure 144/89 09/07/16 14:00 O2 Sat by Pulse Oximetry (%) 98 09/07/16 11:54 Constitutional: Yes: No Distress, Calm Neck: Yes: Supple Cardiovascular: Yes: Regular Rate and Rhythm Respiratory: Yes: Regular, Diminished Gastrointestinal: Yes: Normal Bowel Sounds, Soft Edema: Yes Edema: LLE: 1+ Labs: CBC, BMP 09/07/16 07:30 09/07/16 07:30 INR, PTT INR 1.26 (0.82-1.09) H 08/22/16 08:40 Fibrinogen 355.0 mg/dL (238-498) 08/20/16 17:10 Problem List - Problems (1) Acute hypoxemic respiratory failure Code(s): J96.01 - ACUTE RESPIRATORY FAILURE WITH HYPOXIA (2) Hyperkalemia Code(s): E87.5 - HYPERKALEMIA (3) Severe anemia Code(s): D64.9 - ANEMIA, UNSPECIFIED (4) S/P amputation Code(s): Z89.9 - ACQUIRED ABSENCE OF LIMB, UNSPECIFIED (5) 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 Code(s): E11.9 - TYPE 2 DIABETES MELLITUS WITHOUT COMPLICATIONS Qualifiers: 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 type: type 2 (6) Diabetic neuropathy Code(s): E11.40 - TYPE 2 DIABETES MELLITUS WITH DIABETIC NEUROPATHY, UNSP Qualifiers: 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 type: type 2 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 complication detail: diabetic polyneuropathy Qualified Code(s): E11.42 - Type 2 diabetes mellitus with diabetic polyneuropathy (7) Foot infection Code(s): L08.9 - LOCAL INFECTION OF THE SKIN AND SUBCUTANEOUS TISSUE, UNSP (8) HTN (hypertension) Code(s): I10 - ESSENTIAL (PRIMARY) HYPERTENSION Qualifiers: Hypertension type: essential hypertension Qualified Code(s): I10 - Essential (primary) hypertension (9) Osteomyelitis Code(s): M86.9 - OSTEOMYELITIS, UNSPECIFIED (10) Acute on chronic diastolic heart failure Code(s): I50.33 - ACUTE ON CHRONIC DIASTOLIC (CONGESTIVE) HEART FAILURE Assessment/Plan 08/21/2016 Mild cLVH and mildly dilated LV and normal LV fxn, mild-mod MR, mod TR , mod AMELIA, mild ao dilatation 1. Acute hypoxic respiratory failure referable to acute on chronic diastolic failure, improving 2. Group g strep bacteremia secondary to left foot osteomyelitis s/p bone biopsy 08/27, debridement 08/31 3. Symptomatic anemia, Transfused 10 units PRBCs this admission 4. Acute on CKD 4 with with subnephrotoic proteinuria and hyperkalemia 5. Type 2 DM c/b neuropathy 6. HTN/HCVD P:1. Diuresis as needed with monitor diuretic response, renal fxn and electroytes 2. Bipap as needed, wean FIO2 as saO2 tolerated 3. Continue Norvasc 10 qd, Lopressor 50 bid, Cardura 4 qd, resume Diovan once renal fxn stabilizes and hyperkalemia resolved 4. Complete abx course, wound care 5. DVT and GI prophylaxis
[2016-09-07 16:11] LABS: URINE APPEARANCE CLEAR; URINE BILIRUBIN NEGATIVE (NEGATIVE); URINE COLOR LTYELLOW; URINE GLUCOSE (UA) NEGATIVE (NEGATIVE); URINE KETONE NEGATIVE (NEGATIVE); URINE NITRITE NEGATIVE (NEGATIVE); URINE UROBILINOGEN NEGATIVE E.U./dl (0.2-1.0)
[2016-09-07] MEDS: DOXAZOSIN MESYLATE 4 MG TABLET PO SCH (16:12)
[2016-09-07 16:52] LABS: URINE BLOOD 1+ (NEGATIVE); URINE LEUK ESTERASE TRACE (NEGATIVE); URINE PROTEIN 2+ (NEGATIVE)
[2016-09-07 17:28] LABS: URINE HYALINE CAST 1 /lpf; URINE MUCUS RARE; URINE RBC 10 /hpf (0-3); URINE WBC 2 /hpf (3-5)
--- NOTE | 2016-09-07 17:56 | PN ---
Physical Exam: SUBJECTIVE: Patient seen and examined by me at bedside. No overnight events noted. Patient reports he continues to have shortness of breath but has improved significantly. He states he was able to move around with his cane today without difficulty. Patient denies any fever, chills, nausea, vomiting, chest pain, palpitations, abdominal pain, dysuria. OBJECTIVE: Vital Signs Period Temp Pulse Resp BP Sys/Gutierrez Pulse Ox Last 24 Hr 97.4 F-98.6 F 62-81 18-20 135-157/72-89 92-98 GENERAL: The patient is awake, alert, and fully oriented, in no acute distress. LUNGS: Rhonchi's on right lung base. No wheezes or crackles HEART: Regular rate and rhythm, nromal S1 and S2 without murmur, rub or gallop. ABDOMEN: Soft, nontender, nondistended, no guarding, no rebound tenderness EXTREMITIES: trace pitting edema in B/L LE. Left metatarsal amputation with gauze wrapped around. Laboratory Results - last 24 hr 09/06/16 09/06/16 09/06/16 17:20 18:25 22:13 WBC 9.6 D RBC 3.11 L D Hgb 7.9 L D Hct 24.6 L D MCV 79.3 L MCHC 32.2 RDW 25.6 H Plt Count 334 MPV 8.0 Neutrophils % Lymphocytes % Monocytes % Eosinophils % Basophils % Platelet Estimate Platelet Comment Polychromasia Hypochromic-Microcytic Basophilic Stippling Anisocytosis Microcytosis ESR Sodium Potassium Chloride Carbon Dioxide Anion Gap BUN Creatinine Creat Clearance w eGFR POC Glucometer 203 147 Random Glucose Calcium Phosphorus Magnesium Total Bilirubin AST ALT Alkaline Phosphatase LD Total C-Reactive Protein Total Protein Albumin Urine Color Urine Appearance Urine pH Urine Protein Urine Glucose (UA) Urine Ketones Urine Blood Urine Nitrite Urine Bilirubin Urine Urobilinogen Ur Leukocyte Esterase U Random Total Protein Ur Random Urea Nitrogn Urine Creatinine 09/07/16 09/07/16 09/07/16 06:19 07:30 07:30 WBC 8.0 RBC 3.05 L Hgb 7.8 L Hct 24.3 L MCV 79.8 L MCHC 32.2 RDW 26.2 H Plt Count 304 MPV 8.3 Neutrophils % 73.0 D Lymphocytes % 8.9 D Monocytes % 8.9 D Eosinophils % 8.6 H D Basophils % 0.6 Platelet Estimate Adequate Platelet Comment No clumping noted Polychromasia 1+ Hypochromic-Microcytic 1+ Basophilic Stippling 1+ Anisocytosis 2+ Microcytosis 1+ ESR Sodium 138 Potassium 4.9 Chloride 105 Carbon Dioxide 27 Anion Gap 6 L BUN 62 H Creatinine 3.0 H Creat Clearance w eGFR 21.38 POC Glucometer 271 Random Glucose 226 H D Calcium 8.1 L Phosphorus 4.4 Magnesium 1.9 Total Bilirubin 0.3 D AST 14 L ALT 17 Alkaline Phosphatase 174 H D LD Total 165 C-Reactive Protein Total Protein 7.3 Albumin 1.9 L Urine Color Urine Appearance Urine pH Urine Protein Urine Glucose (UA) Urine Ketones Urine Blood Urine Nitrite Urine Bilirubin Urine Urobilinogen Ur Leukocyte Esterase U Random Total Protein Ur Random Urea Nitrogn Urine Creatinine 09/07/16 09/07/16 09/07/16 07:30 07:30 12:24 WBC RBC Hgb Hct MCV MCHC RDW Plt Count MPV Neutrophils % Lymphocytes % Monocytes % Eosinophils % Basophils % Platelet Estimate Platelet Comment Polychromasia Hypochromic-Microcytic Basophilic Stippling Anisocytosis Microcytosis ESR 110 H Sodium Potassium Chloride Carbon Dioxide Anion Gap BUN Creatinine Creat Clearance w eGFR POC Glucometer 141 Random Glucose Calcium Phosphorus Magnesium Total Bilirubin AST ALT Alkaline Phosphatase LD Total C-Reactive Protein 6.4 H D Total Protein Albumin Urine Color Urine Appearance Urine pH Urine Protein Urine Glucose (UA) Urine Ketones Urine Blood Urine Nitrite Urine Bilirubin Urine Urobilinogen Ur Leukocyte Esterase U Random Total Protein Ur Random Urea Nitrogn Urine Creatinine 09/07/16 09/07/16 09/07/16 15:42 15:42 15:42 WBC RBC Hgb Hct MCV MCHC RDW Plt Count MPV Neutrophils % Lymphocytes % Monocytes % Eosinophils % Basophils % Platelet Estimate Platelet Comment Polychromasia Hypochromic-Microcytic Basophilic Stippling Anisocytosis Microcytosis ESR Sodium Potassium Chloride Carbon Dioxide Anion Gap BUN Creatinine Creat Clearance w eGFR POC Glucometer Random Glucose Calcium Phosphorus Magnesium Total Bilirubin AST ALT Alkaline Phosphatase LD Total C-Reactive Protein Total Protein Albumin Urine Color Ltyellow Urine Appearance Clear Urine pH 5.0 Urine Protein 2+ H Urine Glucose (UA) Negative Urine Ketones Negative Urine Blood 1+ H Urine Nitrite Negative Urine Bilirubin Negative Urine Urobilinogen Negative Ur Leukocyte Esterase Trace H U Random Total Protein Ur Random Urea Nitrogn 565 Urine Creatinine 54.6 09/07/16 09/07/16 15:42 16:45 WBC RBC Hgb Hct MCV MCHC RDW Plt Count MPV Neutrophils % Lymphocytes % Monocytes % Eosinophils % Basophils % Platelet Estimate Platelet Comment Polychromasia Hypochromic-Microcytic Basophilic Stippling Anisocytosis Microcytosis ESR Sodium Potassium Chloride Carbon Dioxide Anion Gap BUN Creatinine Creat Clearance w eGFR POC Glucometer 194 Random Glucose Calcium Phosphorus Magnesium Total Bilirubin AST ALT Alkaline Phosphatase LD Total C-Reactive Protein Total Protein Albumin Urine Color Urine Appearance Urine pH Urine Protein Urine Glucose (UA) Urine Ketones Urine Blood Urine Nitrite Urine Bilirubin Urine Urobilinogen Ur Leukocyte Esterase U Random Total Protein 146 H Ur Random Urea Nitrogn Urine Creatinine Active Medications Generic Name Dose Route Start Last Admin Trade Name Freq PRN Reason Stop Dose Admin Albuterol Sulfate 2 puff 08/31/16 10:24 Ventolin Hfa Inhaler - IH Q4H PRN WHEEZING Albuterol/Ipratropium 1 amp 09/05/16 18:00 09/07/16 11:55 Duoneb - NEB 1 amp QIDR [facility] Administration Amlodipine Besylate 10 mg 09/01/16 10:00 09/07/16 09:58 Norvasc - PO 10 mg DAILY [facility] Administration Ascorbic Acid 500 mg 09/01/16 10:00 09/07/16 09:58 Vitamin C - PO 500 mg DAILY [facility] Administration Calcium Acetate 1,334 mg 08/31/16 12:00 09/07/16 12:26 Phoslo - PO 1,334 mg TIDCM [facility] Administration Doxazosin Mesylate 4 mg 09/01/16 10:00 09/07/16 16:12 Cardura - PO 4 mg DAILY [facility] Administration Duloxetine HCl 30 mg 09/01/16 10:00 09/07/16 09:59 Cymbalta - PO 30 mg DAILY [facility] Administration Ferrous Sulfate 325 mg 09/01/16 10:00 09/07/16 09:58 Feosol - PO 325 mg DAILY [facility] Administration Folic Acid 1 mg 09/01/16 10:00 09/07/16 09:58 Folic Acid - PO 1 mg DAILY [facility] Administration IV Flush 8 ml 09/03/16 09:35 Picc Line Flush IVPUSH PRN PRN Protocol Insulin Aspart 1 vial 08/31/16 11:00 09/07/16 12:25 Novolog Vial Sliding Scale - SQ Not Given TIDAC [facility] Protocol Insulin Detemir 20 units 08/31/16 22:00 09/07/16 06:49 Levemir Vial SQ 20 units BID@0700,2200 [facility] Administration Lactobacillus Acidophilus 1 tab 09/08/16 10:00 Bacid - PO DAILY [facility] Methyl Salicylate 1 applic 08/31/16 22:00 09/07/16 12:25 Sterling-Greer - TP Not Given BID [facility] Metoprolol Tartrate 50 mg 09/01/16 10:00 09/07/16 09:58 Lopressor - PO 50 mg BID [facility] Administration Mirtazapine 30 mg 08/31/16 22:00 09/06/16 22:17 Remeron - PO 30 mg HS [facility] Administration Miscellaneous 1 each 08/31/16 10:24 Duragesic Patch Waste TD PRN PRN PAIN Oxycodone HCl 10 mg 09/05/16 19:40 09/07/16 12:29 Roxicodone - PO 10 mg Q6H PRN Administration PAIN Pantoprazole Sodium 20 mg 09/01/16 10:00 09/07/16 09:58 Protonix - PO 20 mg DAILY [facility] Administration Piperacillin Sod/Tazobactam Sod 3.375 gm 09/04/16 15:45 09/07/16 09:58 Zosyn 3.375gm Ivpb (Pre-Docked) IVPB 3.375 gm Q8H-IV [facility] Administration Protocol Pregabalin 100 mg 08/31/16 22:00 09/07/16 09:58 Lyrica - PO 100 mg BID [facility] Administration Sodium Bicarbonate 650 mg 09/01/16 10:00 09/07/16 09:58 Sodium Bicarbonate - PO 650 mg DAILY [facility] Administration Trazodone HCl 300 mg 08/31/16 22:00 09/06/16 22:18 Desyrel - PO 300 mg HS [facility] Administration Zinc Sulfate 220 mg 09/01/16 10:00 09/07/16 09:59 Orazinc - PO 220 mg DAILY [facility] Administration ASSESSMENT/PLAN: Patient is a 60 year old male with a PMHx of DM with nephropathy and neuropathy s/p left metatarsal amputation, HTN, CKD who presented after a syncopal episode with loss of consciousness and head trauma. Patient was found to have a hemoglobin of 3.7 and WBC of 26.1. Patient admitted for further monitoring and management. Patient was transfused with a total of 11 PRBC since admission and had two debridements of the left foot. Patient then had Wound VAC placed. Patient then began having dyspnea with orthopnea and repeat chest x-ray revealed fluid overload. Patient has been getting diuresed with Lasix PRN Syncope secondary to Acute on Chronic Anemia-Improving -Today's hgb/hct 7.8 and 24.3 -11 PRBC's since admission -Will begin EPO 3 times daily, as per nephrology -Continue to monitor daily CBC -No colonoscopy or EGD as per GI -Heme/Onco consult appreciated Sepsis Secondary to Osteomyelitis- improved -Remains Afebrile -S/P debridement 08/27/16 and 08/31/16 -Discontinued Flagyl -Will discharge with IV ceftriaxone for 8 days but is currently on Zosyn day #3 for HAP -Tunneled cath ordered for discharge -Continue to trend CBC and ESR Acute Hypoxic Respiratory failure- Improving -Likely secondary to HAP found on chest x-ray and congestive changes -Zosyn 3.375 mg IV Q8H for HAP day #3 -Did not require BIPAP overnight and saturating well on 2L NC -Lasix PRN -Output of 2.6 L in the last 24 hours -Strict I&O's -Pulmonology consult appreciated -Cardiology consult appreciated Acute on chronic renal failure -Creatinine uptrended due to Lasix with today 3.0 -Nephrology on case HTN-Controlled -Continue Metoprolol 25mg BID -Norsvac 10mg daily -Diovan held due to FROYLAN Hyperkalemia- resolved -Today 4.9 -Continue to trend -maintain low K diet Hypophosphatemia -Phoslo with meals TID DM II -Levemir 22 units BID -Insulin sliding scale -BGM F/E/N -On no fluids -Electrolytes wnl -Diabetic/Sodium controlled diet Prophylaxis -SCD's for DVT Disposition -Awaiting for SNF. Likely to be discharged tomorrow Visit type - Emergency Visit Emergency Visit: Yes ED Registration Date: 08/19/16 Care time: The patient presented to the Emergency Department on the above date and was hospitalized for further evaluation of their emergent condition. - New Patient This patient is new to me today: No - Critical Care Critical Care patient: No
[2016-09-07] MEDS ORDERED: traZODone HCL 50 MG TABLET (FP) ONE (23:06)
[2016-09-07] MEDS: MIRTAZAPINE 15 MG TABLET (FP) PO SCH (23:22)
[2016-09-07] MEDS: traZODone HCL 100 MG TABLET (FP) PO SCH (23:23)
[2016-09-08] MEDS: PIPERACILLIN/TAZOB 3.375 GM/50 ML PRE-DOCKED IVPB SCH ×3 (02:55→17:41)
[2016-09-08] MEDS: INSULIN DETEMIR 100 UNITS/ML MDV SQ SCH ×2 (06:49→12:07)
[2016-09-08] MEDS: INSULIN SLIDING SCALE (NOVOLOG) 1 VIAL SQ SCH ×3 (06:49→17:39)
[2016-09-08] MEDS: ALBUTEROL SO4 2.5/IPRATROPIUM 0.5 INH SOL 3 ML VIAL.NEB. NEB SCH ×4 (06:51→23:28)
--- NOTE | 2016-09-08 07:25 | PN ---
Physical Exam: SUBJECTIVE: Patient seen and examined by me at bedside. No overnight events noted. Patient states he is still having some shortness of breath that happened this morning but is relieved after his DuoNeb. Otherwise, patient denies fever, chills, nausea, vomiting, chest pain, palpitations, abdominal pain , headaches. OBJECTIVE: Vital Signs Period Temp Pulse Resp BP Sys/Gutierrez Pulse Ox Last 24 Hr 97.4 F-98.2 F 59-74 20-20 131-145/75-92 93-98 GENERAL: The patient is awake, alert, and fully oriented, in no acute distress. LUNGS: Rhonchi's on right lung base. No wheezes or crackles HEART: Regular rate and rhythm, normal S1 and S2 without murmur, rub or gallop. ABDOMEN: Soft, nontender, nondistended, no guarding, no rebound tenderness EXTREMITIES: trace pitting edema in B/L LE. Left metatarsal amputation with gauze wrapped around. Wound Vac in place Laboratory Results - last 24 hr 09/07/16 09/07/16 09/07/16 07:30 07:30 07:30 WBC 8.0 RBC 3.05 L Hgb 7.8 L Hct 24.3 L MCV 79.8 L MCHC 32.2 RDW 26.2 H Plt Count 304 MPV 8.3 Neutrophils % 73.0 D Lymphocytes % 8.9 D Monocytes % 8.9 D Eosinophils % 8.6 H D Basophils % 0.6 Platelet Estimate Adequate Platelet Comment No clumping noted Polychromasia 1+ Hypochromic-Microcytic 1+ Basophilic Stippling 1+ Anisocytosis 2+ Microcytosis 1+ ESR Sodium 138 Potassium 4.9 Chloride 105 Carbon Dioxide 27 Anion Gap 6 L BUN 62 H Creatinine 3.0 H Creat Clearance w eGFR 21.38 POC Glucometer Random Glucose 226 H D Calcium 8.1 L Phosphorus 4.4 Magnesium 1.9 Total Bilirubin 0.3 D AST 14 L ALT 17 Alkaline Phosphatase 174 H D LD Total 165 C-Reactive Protein 6.4 H D Total Protein 7.3 Albumin 1.9 L Urine Color Urine Appearance Urine pH Ur Specific Wayne Urine Protein Urine Glucose (UA) Urine Ketones Urine Blood Urine Nitrite Urine Bilirubin Urine Urobilinogen Ur Leukocyte Esterase Urine RBC Urine WBC Hyaline Casts Urine Mucus U Random Total Protein Ur Random Urea Nitrogn Urine Creatinine 09/07/16 09/07/16 09/07/16 07:30 12:24 15:42 WBC RBC Hgb Hct MCV MCHC RDW Plt Count MPV Neutrophils % Lymphocytes % Monocytes % Eosinophils % Basophils % Platelet Estimate Platelet Comment Polychromasia Hypochromic-Microcytic Basophilic Stippling Anisocytosis Microcytosis ESR 110 H Sodium Potassium Chloride Carbon Dioxide Anion Gap BUN Creatinine Creat Clearance w eGFR POC Glucometer 141 Random Glucose Calcium Phosphorus Magnesium Total Bilirubin AST ALT Alkaline Phosphatase LD Total C-Reactive Protein Total Protein Albumin Urine Color Urine Appearance Urine pH Ur Specific Wayne Urine Protein Urine Glucose (UA) Urine Ketones Urine Blood Urine Nitrite Urine Bilirubin Urine Urobilinogen Ur Leukocyte Esterase Urine RBC Urine WBC Hyaline Casts Urine Mucus U Random Total Protein Ur Random Urea Nitrogn 565 Urine Creatinine 09/07/16 09/07/16 09/07/16 15:42 15:42 15:42 WBC RBC Hgb Hct MCV MCHC RDW Plt Count MPV Neutrophils % Lymphocytes % Monocytes % Eosinophils % Basophils % Platelet Estimate Platelet Comment Polychromasia Hypochromic-Microcytic Basophilic Stippling Anisocytosis Microcytosis ESR Sodium Potassium Chloride Carbon Dioxide Anion Gap BUN Creatinine Creat Clearance w eGFR POC Glucometer Random Glucose Calcium Phosphorus Magnesium Total Bilirubin AST ALT Alkaline Phosphatase LD Total C-Reactive Protein Total Protein Albumin Urine Color Ltyellow Urine Appearance Clear Urine pH 5.0 Ur Specific Wayne 1.010 Urine Protein 2+ H Urine Glucose (UA) Negative Urine Ketones Negative Urine Blood 1+ H Urine Nitrite Negative Urine Bilirubin Negative Urine Urobilinogen Negative Ur Leukocyte Esterase Trace H Urine RBC 10 Urine WBC 2 Hyaline Casts 1 Urine Mucus Rare U Random Total Protein 146 H Ur Random Urea Nitrogn Urine Creatinine 54.6 09/07/16 09/07/16 16:45 23:14 WBC RBC Hgb Hct MCV MCHC RDW Plt Count MPV Neutrophils % Lymphocytes % Monocytes % Eosinophils % Basophils % Platelet Estimate Platelet Comment Polychromasia Hypochromic-Microcytic Basophilic Stippling Anisocytosis Microcytosis ESR Sodium Potassium Chloride Carbon Dioxide Anion Gap BUN Creatinine Creat Clearance w eGFR POC Glucometer 194 174 Random Glucose Calcium Phosphorus Magnesium Total Bilirubin AST ALT Alkaline Phosphatase LD Total C-Reactive Protein Total Protein Albumin Urine Color Urine Appearance Urine pH Ur Specific Wayne Urine Protein Urine Glucose (UA) Urine Ketones Urine Blood Urine Nitrite Urine Bilirubin Urine Urobilinogen Ur Leukocyte Esterase Urine RBC Urine WBC Hyaline Casts Urine Mucus U Random Total Protein Ur Random Urea Nitrogn Urine Creatinine Active Medications Generic Name Dose Route Start Last Admin Trade Name Freq PRN Reason Stop Dose Admin Albuterol Sulfate 2 puff 08/31/16 10:24 Ventolin Hfa Inhaler - IH Q4H PRN WHEEZING Albuterol/Ipratropium 1 amp 09/05/16 18:00 09/08/16 06:51 Duoneb - NEB Not Given QIDR [facility] Amlodipine Besylate 10 mg 09/01/16 10:00 09/07/16 09:58 Norvasc - PO 10 mg DAILY [facility] Administration Ascorbic Acid 500 mg 09/01/16 10:00 09/07/16 09:58 Vitamin C - PO 500 mg DAILY [facility] Administration Calcium Acetate 1,334 mg 08/31/16 12:00 09/07/16 18:23 Phoslo - PO 1,334 mg TIDCM [facility] Administration Doxazosin Mesylate 4 mg 09/01/16 10:00 09/07/16 16:12 Cardura - PO 4 mg DAILY [facility] Administration Duloxetine HCl 30 mg 09/01/16 10:00 09/07/16 09:59 Cymbalta - PO 30 mg DAILY [facility] Administration Ferrous Sulfate 325 mg 09/01/16 10:00 09/07/16 09:58 Feosol - PO 325 mg DAILY [facility] Administration Folic Acid 1 mg 09/01/16 10:00 09/07/16 09:58 Folic Acid - PO 1 mg DAILY [facility] Administration IV Flush 8 ml 09/03/16 09:35 Picc Line Flush IVPUSH PRN PRN Protocol Insulin Aspart 1 vial 08/31/16 11:00 09/08/16 06:49 Novolog Vial Sliding Scale - SQ Not Given TIDAC [facility] Protocol Insulin Detemir 20 units 08/31/16 22:00 09/08/16 06:49 Levemir Vial SQ Not Given BID@0700,2200 [facility] Lactobacillus Acidophilus 1 tab 09/08/16 10:00 Bacid - PO DAILY [facility] Methyl Salicylate 1 applic 08/31/16 22:00 09/07/16 23:29 Sterling-Greer - TP Not Given BID [facility] Metoprolol Tartrate 50 mg 09/01/16 10:00 09/07/16 23:22 Lopressor - PO 50 mg BID [facility] Administration Mirtazapine 30 mg 08/31/16 22:00 09/07/16 23:22 Remeron - PO 30 mg HS [facility] Administration Miscellaneous 1 each 08/31/16 10:24 Duragesic Patch Waste TD PRN PRN PAIN Oxycodone HCl 10 mg 09/05/16 19:40 09/07/16 18:41 Roxicodone - PO 10 mg Q6H PRN Administration PAIN Pantoprazole Sodium 20 mg 09/01/16 10:00 09/07/16 09:58 Protonix - PO 20 mg DAILY [facility] Administration Piperacillin Sod/Tazobactam Sod 3.375 gm 09/04/16 15:45 09/08/16 02:55 Zosyn 3.375gm Ivpb (Pre-Docked) IVPB 3.375 gm Q8H-IV [facility] Administration Protocol Pregabalin 100 mg 08/31/16 22:00 09/07/16 23:22 Lyrica - PO 100 mg BID [facility] Administration Sodium Bicarbonate 650 mg 09/01/16 10:00 09/07/16 09:58 Sodium Bicarbonate - PO 650 mg DAILY [facility] Administration Trazodone HCl 300 mg 08/31/16 22:00 09/07/16 23:23 Desyrel - PO 300 mg HS [facility] Administration Zinc Sulfate 220 mg 09/01/16 10:00 09/07/16 09:59 Orazinc - PO 220 mg DAILY [facility] Administration Chest X-ray (09/07/2016): Cardiomegaly. Vascular congestive changes, bilateral pleural effusions, airspace opacities in bilateral lower lung zones, right greater than the left. No pneumothorax seen. ASSESSMENT/PLAN: Patient is a 60 year old male with a PMHx of DM with nephropathy and neuropathy s/p left metatarsal amputation, HTN, CKD who presented after a syncopal episode with loss of consciousness and head trauma. Patient was found to have a hemoglobin of 3.7 and WBC of 26.1. Patient admitted for further monitoring and management. Patient was transfused with a total of 11 PRBC since admission and had two debridements of the left foot. Patient then had Wound VAC placed. Patient then began having dyspnea with orthopnea and repeat chest x-ray revealed fluid overload. Patient has been getting diuresed with Lasix PRN. Syncope secondary to Acute on Chronic Anemia-Improving -Today's hgb/hct 7.2 and 22.6 -11 PRBC's since admission -Will begin EPO 3 times weekly, as per nephrology -Ferrous 325mg daily -Folic 1mg -Continue to monitor daily CBC -Heme/Onco consult appreciated Sepsis Secondary to Osteomyelitis- Improved -Remains Afebrile -S/P bone biopsy debridement 08/27/16 and 08/31/16 -Tunneled cath to be placed on Saturday (09/10/16) -Zosyn day #4 for HAP -Will discharge with IV ceftriaxone for a total of 6 weeks of IV antibiotics -Tunneled cath ordered for discharge -Continue to trend CBC and ESR Acute Hypoxic Respiratory failure- Improving -Likely secondary to HAP found on chest x-ray and congestive changes -Zosyn 3.375 mg IV Q8H for HAP day #4 -Did not require BIPAP overnight and saturating well on 3L NC -Lasix PRN -Output of 820mls in the last 24 hours -Strict I&O's -Pulmonology consult appreciated -Cardiology consult appreciated Acute on chronic renal failure -Creatinine uptrending today 3.2 despite Lasix IV last given on -Eosinophilia is worsening on CBC with possible AIN due to current medications, Protonix and Zosyn. -Protonix discontinued and Pepcid started -Will consider changing Zosyn to non-penicillin antibiotics -Continue with daily BMP's and monitoring -Nephrology on case HTN-Controlled -Continue Metoprolol 25mg BID -Norsvac 10mg daily -Diovan held due to FROYLAN Hyperkalemia- resolved -Today 5.0 -Continue to trend -maintain low K diet Hypophosphatemia -Phoslo with meals TID DM II -Morning hypoglycemia the last two days -Will adjust Levemir to 20 units in the morning and 15 at bedtime -Insulin sliding scale -BGM F/E/N -On no fluids -Electrolytes wnl -Diabetic/Sodium controlled diet Prophylaxis -SCD's for DVT Disposition -Awaiting for tunnelled catheter to discharge with IV abx Visit type - Emergency Visit Emergency Visit: Yes ED Registration Date: 08/19/16 Care time: The patient presented to the Emergency Department on the above date and was hospitalized for further evaluation of their emergent condition. - New Patient This patient is new to me today: No - Critical Care Critical Care patient: No
[2016-09-08 08:18] LABS: BASOPHIL 0.7 % (0-2.0); EOSINOPHIL 9.7 % (0-4.5); MCH 25.5 pg (25.7-33.7); MCHC 31.8 g/dl (32.0-35.9); MEAN CELL VOLUME 80.3 fl (80-96); MEAN PLT VOLUME 8.3 fl (7.5-11.1); NEUTROPHILS 67.4 % (42.8-82.8); PLATELET COUNT 284 K/MM3 (134-434); RDW 25.4 % (11.9-15.9); WHITE BLOOD COUNT 6.6 K/mm3 (4.0-10.0)
[2016-09-08] MEDS: CALCIUM ACETATE 667 MG CAPSULE (FP) PO SCH ×3 (08:34→17:41)
[2016-09-08 08:57] LABS: ALBUMIN 1.8 g/dl (3.4-5.0); BILIRUBIN,TOTAL 0.2 mg/dL (0.2-1.0); CALCIUM 8.1 mg/dL (8.5-10.1); COCKROFT - GAULT 33.43; CREATININE 3.2 mg/dL (0.7-1.3); FERRITIN 477.06 ng/ml (16.4-293.9); FREE T4 0.94 ng/dl (0.76-1.16); PHOSPHOROUS 5.2 mg/dL (2.5-4.9); THYROID STIMULATING HORMONE 3.99 uIU/ml (0.358-3.74); TOT PROT 7.1 g/dl (6.4-8.2)
[2016-09-08] MEDS: amLODIPine BESYLATE 10 MG TABLET (FP) PO SCH (10:31)
[2016-09-08] MEDS: DULoxetine HCL 30 MG CAPSULE.DR (FP) PO SCH (10:31)
[2016-09-08] MEDS: LACTOBACILLUS ACIDOPHILUS 1 EACH TAB (FP) PO SCH (10:31)
[2016-09-08] MEDS: METOPROLOL TARTRATE 25 MG TABLET (FP) PO SCH ×2 (10:31→22:05)
[2016-09-08] MEDS: PANTOPRAZOLE 20 MG TABLET (FP) PO SCH (10:31)
[2016-09-08] MEDS: PREGABALIN 50 MG CAPSULE PO SCH ×2 (10:32→22:05)
[2016-09-08] MEDS: FERROUS SO4 325 MG TABLET (FP) PO SCH (10:32)
[2016-09-08] MEDS: SODIUM BICARBONATE 650 MG TABLET PO SCH (10:32)
[2016-09-08] MEDS: ASCORBIC ACID 500 MG TABLET (FP) PO SCH (10:32)
[2016-09-08] MEDS: FOLIC ACID 1 MG TABLET (FP) PO SCH (10:32)
[2016-09-08] MEDS: ZINC SULFATE 220 MG CAPSULE (FP) PO SCH (10:32)
[2016-09-08] MEDS: DOXAZOSIN MESYLATE 4 MG TABLET PO SCH (10:33)
[2016-09-08] MEDS: METHYL SALICYLATE/MENTHOL OINT 30 GM TUBE TP SCH ×2 (10:34→22:03)
--- NOTE | 2016-09-08 12:54 | PN ---
Progress Note (short form) - Note Progress Note: PULMONARY Still some shortness of breath but overall improving. + cough productive of white sputum. No fevers or chills. Last Vital Signs Temp Pulse Resp BP Pulse Ox 98.2 F 59 L 20 131/75 98 09/08/16 06:00 09/08/16 06:00 09/08/16 06:00 09/08/16 06:00 09/07/16 21:00 Gen: NAD at rest Heart: RRR Lung: scattered rhonchi, wheezes Abd: soft, nontender Ext: + edema CBC, BMP 09/08/16 07:00 09/08/16 07:00 Active Medications Albuterol Sulfate (Ventolin Hfa Inhaler -) 2 puff IH Q4H PRN PRN Reason: WHEEZING Albuterol/Ipratropium (Duoneb -) 1 amp NEB QIDR [facility] Last Admin: 09/08/16 06:51 Dose: Not Given Amlodipine Besylate (Norvasc -) 10 mg PO DAILY [facility] Last Admin: 09/08/16 10:31 Dose: 10 mg Ascorbic Acid (Vitamin C -) 500 mg PO DAILY [facility] Last Admin: 09/08/16 10:32 Dose: 500 mg Calcium Acetate (Phoslo -) 1,334 mg PO TIDCM [facility] Last Admin: 09/08/16 12:09 Dose: 1,334 mg Doxazosin Mesylate (Cardura -) 4 mg PO DAILY [facility] Last Admin: 09/08/16 10:33 Dose: 4 mg Duloxetine HCl (Cymbalta -) 30 mg PO DAILY [facility] Last Admin: 09/08/16 10:31 Dose: 30 mg Ferrous Sulfate (Feosol -) 325 mg PO DAILY [facility] Last Admin: 09/08/16 10:32 Dose: 325 mg Folic Acid (Folic Acid -) 1 mg PO DAILY [facility] Last Admin: 09/08/16 10:32 Dose: 1 mg IV Flush (Picc Line Flush) 8 ml IVPUSH PRN PRN PRN Reason: Protocol Famotidine/Sodium Chloride (Pepcid 20 Mg Premixed Ivpb -) 50 mls @ 100 mls/hr IVPB BID [facility] Insulin Aspart (Novolog Vial Sliding Scale -) 1 vial SQ TIDAC [facility] PRN Reason: Protocol Last Admin: 09/08/16 12:08 Dose: Not Given Insulin Detemir (Levemir Vial) 20 units SQ DAILY [facility] Insulin Detemir (Levemir Vial) 15 units SQ HS [facility] Lactobacillus Acidophilus (Bacid -) 1 tab PO DAILY [facility] Last Admin: 09/08/16 10:31 Dose: 1 tab Methyl Salicylate (Sterling-Greer -) 1 applic TP BID [facility] Last Admin: 09/08/16 10:34 Dose: Not Given Metoprolol Tartrate (Lopressor -) 50 mg PO BID [facility] Last Admin: 09/08/16 10:31 Dose: 50 mg Mirtazapine (Remeron -) 30 mg PO [facility] Last Admin: 09/07/16 23:22 Dose: 30 mg Miscellaneous (Duragesic Patch Waste) 1 each TD PRN PRN PRN Reason: PAIN Oxycodone HCl (Roxicodone -) 10 mg PO Q6H PRN PRN Reason: PAIN Last Admin: 09/07/16 18:41 Dose: 10 mg Piperacillin Sod/Tazobactam Sod (Zosyn 3.375gm Ivpb (Pre-Docked)) 3.375 gm IVPB Q8H-IV [facility] PRN Reason: Protocol Last Admin: 09/08/16 10:32 Dose: 3.375 gm Pregabalin (Lyrica -) 100 mg PO BID [facility] Last Admin: 09/08/16 10:32 Dose: 100 mg Sodium Bicarbonate (Sodium Bicarbonate -) 650 mg PO DAILY [facility] Last Admin: 09/08/16 10:32 Dose: 650 mg Trazodone HCl (Desyrel -) 300 mg PO [facility] Last Admin: 09/07/16 23:23 Dose: 300 mg Zinc Sulfate (Orazinc -) 220 mg PO DAILY [facility] Last Admin: 09/08/16 10:32 Dose: 220 mg A/P Volume Overload Anemia Syncope Left Foot Ulcer Infection s/p debridement Gram Positive Bacteremia Acute on Chronic Renal Failure DM - lasix as needed - continue antibiotics - inhaled bronchodilators - transfuse PRBC - monitor H/H - O2 to keep SpO2 >90% - BIPAP as needed to assist in work of breathing - DVT prophylaxis
--- NOTE | 2016-09-08 13:09 | PN ---
Progress Note (short form) - Note Progress Note: Renal Follow up for FROYLAN/CKD with Hyperkalemia Pt seen and examined at the bedside continues to have some SOB no fever or chills no abd pain, chest pain, N/V/D Vital Signs Temperature 98.2 F 09/08/16 06:00 Pulse Rate 59 L 09/08/16 06:00 Respiratory Rate 20 09/08/16 06:00 Blood Pressure 131/75 09/08/16 06:00 O2 Sat by Pulse Oximetry (%) 98 09/07/16 21:00 Intake & Output 09/05/16 09/06/16 09/07/16 09/08/16 23:59 23:59 23:59 23:59 Intake Total 245 2030 1440 50 Output Total 2200 2100 820 575 Balance -1954 620 -525 Gen: NAD on NC HEENT: No JVD CVS: RRR, No M/R Lungs: Dec BS throughout the lung [place] , + wheeze Abd: NT/ND Ext: trace to 1+ edema in LLE CBC, BMP 09/08/16 07:00 09/08/16 07:00 Current Medications Albuterol Sulfate (Ventolin Hfa Inhaler -) 2 puff IH Q4H PRN PRN Reason: WHEEZING Albuterol/Ipratropium (Duoneb -) 1 amp NEB QIDR [facility] Last Admin: 09/08/16 06:51 Dose: Not Given Amlodipine Besylate (Norvasc -) 10 mg PO DAILY [facility] Last Admin: 09/08/16 10:31 Dose: 10 mg Ascorbic Acid (Vitamin C -) 500 mg PO DAILY [facility] Last Admin: 09/08/16 10:32 Dose: 500 mg Calcium Acetate (Phoslo -) 1,334 mg PO TIDCM [facility] Last Admin: 09/08/16 12:09 Dose: 1,334 mg Doxazosin Mesylate (Cardura -) 4 mg PO DAILY [facility] Last Admin: 09/08/16 10:33 Dose: 4 mg Duloxetine HCl (Cymbalta -) 30 mg PO DAILY [facility] Last Admin: 09/08/16 10:31 Dose: 30 mg Ferrous Sulfate (Feosol -) 325 mg PO DAILY [facility] Last Admin: 09/08/16 10:32 Dose: 325 mg Folic Acid (Folic Acid -) 1 mg PO DAILY [facility] Last Admin: 09/08/16 10:32 Dose: 1 mg IV Flush (Picc Line Flush) 8 ml IVPUSH PRN PRN PRN Reason: Protocol Famotidine/Sodium Chloride (Pepcid 20 Mg Premixed Ivpb -) 50 mls @ 100 mls/hr IVPB BID [facility] Insulin Aspart (Novolog Vial Sliding Scale -) 1 vial SQ TIDAC [facility] PRN Reason: Protocol Last Admin: 09/08/16 12:08 Dose: Not Given Insulin Detemir (Levemir Vial) 20 units SQ DAILY [facility] Insulin Detemir (Levemir Vial) 15 units SQ HS [facility] Lactobacillus Acidophilus (Bacid -) 1 tab PO DAILY [facility] Last Admin: 09/08/16 10:31 Dose: 1 tab Methyl Salicylate (Sterling-Greer -) 1 applic TP BID [facility] Last Admin: 09/08/16 10:34 Dose: Not Given Metoprolol Tartrate (Lopressor -) 50 mg PO BID [facility] Last Admin: 09/08/16 10:31 Dose: 50 mg Mirtazapine (Remeron -) [address] [facility] Last Admin: 09/07/16 23:22 Dose: 30 mg Miscellaneous (Duragesic Patch Waste) 1 each TD PRN PRN PRN Reason: PAIN Oxycodone HCl (Roxicodone -) 10 mg PO Q6H PRN PRN Reason: PAIN Last Admin: 09/07/16 18:41 Dose: 10 mg Piperacillin Sod/Tazobactam Sod (Zosyn 3.375gm Ivpb (Pre-Docked)) 3.375 gm IVPB Q8H-IV [facility] PRN Reason: Protocol Last Admin: 09/08/16 10:32 Dose: 3.375 gm Pregabalin (Lyrica -) 100 mg PO BID [facility] Last Admin: 09/08/16 10:32 Dose: 100 mg Sodium Bicarbonate (Sodium Bicarbonate -) 650 mg PO DAILY [facility] Last Admin: 09/08/16 10:32 Dose: 650 mg Trazodone HCl (Desyrel -) 300 mg PO HS [facility] Last Admin: 09/07/16 23:23 Dose: 300 mg Zinc Sulfate (Orazinc -) 220 mg PO DAILY [facility] Last Admin: 09/08/16 10:32 Dose: 220 mg A/P 60 year old Gentleman with PMhx of CKD (baseline unclear), Hypertension, IDDM, PVD who presented s/p syncopal episode and found to have acute Anemia with Hgb of 3.7 and BUN/Cr of 41/2.7 and K of 6.8. #FROYLAN on CKD stage 4 with subnephrotoic proteinuria BUN/Cr still up trending despite last dose of lasix being given on on CBC there is worsening eosinophilia -? AIN (on zosyn and PPI) will d/c PPI, consider changing Zosyn to non-PCN abx Lasix PRN for SOB Trend BUN/Cr no YASMIN/ARB at this time Dose all meds for Cr Cl less then 20 #CHF/Fluid overload diuretics PRN on Abx #Acute on Chronic anemia Transfuse PRBC as needed Epogen 18870 units SC 3x weekly intial iron studies showed low sat but has been transfused several prbc since then repeat studies sent #Hyperphosphatemia continue Phoslo with meals Miguel Jansen DO
[2016-09-08] MEDS: EPOETIN ALFA 10,000 UNIT/1 ML VIAL SQ SCH (15:00)
--- NOTE | 2016-09-08 15:47 | PN ---
Teaching Attending Note Name of Resident: Marlena Bello ATTENDING PHYSICIAN STATEMENT I saw and evaluated the patient. I reviewed the resident's note and discussed the case with the resident. I agree with the resident's findings and plan as documented. SUBJECTIVE: OBJECTIVE: Vital Signs Period Temp Pulse Resp BP Sys/Gutierrez Pulse Ox Last 24 Hr 97.5 F-98.2 F 59-74 18-20 127-145/75-92 98-99 HEART: S1S2, RRR LUNGS: Clear ABDOMEN: Soft, non-tender, non-distended, normal BS EXTREMITIES: 1+ edema LLE ASSESSMENT AND PLAN: This is a 60-year-old man with a history of HTH, type 2 DM, peripheral neuropathy, OM of left foot, left foot TMA who presented to the ER after a syncopal episode. 1. Sepsis secondary to left foot osteomyelitis, Strep/Staph bacteremia, healthcare associated pneumonia - s/p bone biopsy 08/27, debridement 08/31 - Continue Zosyn 2. Symptomatic anemia secondary to sepsis - Transfused 11 units PRBCs this admission 3. Anemia secondary to chronic illness - Continue Epogen 4. Hyperkalemia - Improved 5. Acute hypoxic respiratory failure secondary to pneumonia and acute diastolic heart failure from fluid overload - Improved - Continue Lasix as needed 6. Acute kidney injury - Creatinine increasing - possibly secondary to IV Lasix (last given 09/06), acute interstitial nephritis secondary to Zosyn, Protonix - Protonix discontinued 7. Stage 4 CKD 8. Hyperphosphatemia - Continue PhosLo 9. Type 2 DM with peripheral neuropathy - Continue Levemir, Novolog sliding scale, Lyrica 10. HTN - Continue Lopressor, Norvasc, Cardura
[2016-09-08] MEDS ORDERED: INSULIN DETEMIR 100 UNITS/ML MDV SQ ONE (18:20)
[2016-09-08] MEDS ORDERED: traZODone HCL 50 MG TABLET (FP) ONE (21:57)
[2016-09-08] MEDS ORDERED: INSULIN DETEMIR 100 UNITS/ML MDV SQ SCH (22:00)
[2016-09-08] MEDS: traZODone HCL 100 MG TABLET (FP) PO SCH (22:04)
[2016-09-08] MEDS: MIRTAZAPINE 15 MG TABLET (FP) PO SCH (22:05)
[2016-09-08] MEDS: FAMOTIDINE 20 MG/50 ML IVPB 50 ML IVPB SCH (22:08)
[2016-09-09] MEDS: PIPERACILLIN/TAZOB 3.375 GM/50 ML PRE-DOCKED IVPB SCH ×3 (02:10→17:38)
[2016-09-09] MEDS: INSULIN SLIDING SCALE (NOVOLOG) 1 VIAL SQ SCH ×3 (06:45→17:37)
[2016-09-09] MEDS: ALBUTEROL SO4 2.5/IPRATROPIUM 0.5 INH SOL 3 ML VIAL.NEB. NEB SCH ×3 (06:57→18:52)
[2016-09-09 07:11] LABS: COCKROFT - GAULT 34.51; CREATININE 3.1 mg/dL (0.7-1.3); MAGNESIUM 2.1 mg/dL (1.8-2.4); PHOSPHOROUS 4.8 mg/dL (2.5-4.9)
[2016-09-09 08:06] LABS: SERUM IRON 32 ug/dL (38-169); TOTAL IRON BINDING CAPACITY 149 ug/dL (250-450); UIBC 117 ug/dL (111-343)
[2016-09-09 08:58] LABS: EOSINOPHIL 8.5 % (0-4.5); MCH 26.1 pg (25.7-33.7); MCHC 32.3 g/dl (32.0-35.9); MEAN CELL VOLUME 80.7 fl (80-96); MEAN PLT VOLUME 8.2 fl (7.5-11.1); NEUTROPHILS 66.3 % (42.8-82.8); PLATELET COUNT 282 K/MM3 (134-434); RDW 25.4 % (11.9-15.9); WHITE BLOOD COUNT 6.1 K/mm3 (4.0-10.0)
[2016-09-09] MEDS: LACTOBACILLUS ACIDOPHILUS 1 EACH TAB (FP) PO SCH (09:29)
[2016-09-09] MEDS: CALCIUM ACETATE 667 MG CAPSULE (FP) PO SCH ×3 (09:29→17:37)
[2016-09-09] MEDS: FERROUS SO4 325 MG TABLET (FP) PO SCH (09:29)
[2016-09-09] MEDS: DULoxetine HCL 30 MG CAPSULE.DR (FP) PO SCH (09:29)
[2016-09-09] MEDS: PREGABALIN 50 MG CAPSULE PO SCH ×2 (09:30→22:32)
[2016-09-09] MEDS: SODIUM BICARBONATE 650 MG TABLET PO SCH (09:30)
[2016-09-09] MEDS: ZINC SULFATE 220 MG CAPSULE (FP) PO SCH (09:30)
[2016-09-09] MEDS: FOLIC ACID 1 MG TABLET (FP) PO SCH (09:30)
[2016-09-09] MEDS: amLODIPine BESYLATE 10 MG TABLET (FP) PO SCH (09:30)
[2016-09-09] MEDS: METOPROLOL TARTRATE 25 MG TABLET (FP) PO SCH ×2 (09:30→22:27)
[2016-09-09] MEDS: ASCORBIC ACID 500 MG TABLET (FP) PO SCH (09:30)
[2016-09-09] MEDS: FAMOTIDINE 20 MG/50 ML IVPB 50 ML IVPB SCH ×2 (09:30→22:27)
[2016-09-09] MEDS: METHYL SALICYLATE/MENTHOL OINT 30 GM TUBE TP SCH ×2 (09:31→22:27)
[2016-09-09] MEDS: DOXAZOSIN MESYLATE 4 MG TABLET PO SCH (09:32)
[2016-09-09] MEDS: INSULIN DETEMIR 100 UNITS/ML MDV SQ SCH (12:22)
[2016-09-09] MEDS ORDERED: ALBUTEROL SO4 0.083% IH SOL 2.5 MG/3 ML VIAL.NEB. NEB PRN (12:27)
--- NOTE | 2016-09-09 12:27 | PN ---
Progress Note (short form) - Note Progress Note: PULMONARY Episode of shortness of breath and chest tightness overnight but did not want to call for treatment. + cough productive of white sputum. No fevers or chills. Last Vital Signs Temp Pulse Resp BP Pulse Ox 98.0 F 63 20 129/76 99 09/09/16 06:00 09/09/16 06:00 09/09/16 06:00 09/09/16 06:00 09/08/16 21:00 Gen: NAD at rest Heart: RRR Lung: scattered rhonchi, wheezes Abd: soft, nontender Ext: + edema CBC, BMP 09/09/16 07:15 09/09/16 07:15 Active Medications Albuterol Sulfate (Ventolin Hfa Inhaler -) 2 puff IH Q4H PRN PRN Reason: WHEEZING Albuterol/Ipratropium (Duoneb -) 1 amp NEB QIDR [facility] Last Admin: 09/09/16 06:57 Dose: Not Given Amlodipine Besylate (Norvasc -) 10 mg PO DAILY [facility] Last Admin: 09/09/16 09:30 Dose: 10 mg Ascorbic Acid (Vitamin C -) 500 mg PO DAILY [facility] Last Admin: 09/09/16 09:30 Dose: 500 mg Calcium Acetate (Phoslo -) 1,334 mg PO TIDCM [facility] Last Admin: 09/09/16 12:22 Dose: 1,334 mg Doxazosin Mesylate (Cardura -) 4 mg PO DAILY [facility] Last Admin: 09/09/16 09:32 Dose: 4 mg Duloxetine HCl (Cymbalta -) 30 mg PO DAILY [facility] Last Admin: 09/09/16 09:29 Dose: 30 mg Epoetin Joe (Procrit -) 10,000 unit SQ TUTHSA [facility] Last Admin: 09/08/16 15:00 Dose: 10,000 unit Ferrous Sulfate (Feosol -) 325 mg PO DAILY [facility] Last Admin: 09/09/16 09:29 Dose: 325 mg Folic Acid (Folic Acid -) 1 mg PO DAILY [facility] Last Admin: 09/09/16 09:30 Dose: 1 mg IV Flush (Picc Line Flush) 8 ml IVPUSH PRN PRN PRN Reason: Protocol Famotidine/Sodium Chloride (Pepcid 20 Mg Premixed Ivpb -) 50 mls @ 100 mls/hr IVPB BID [facility] Last Admin: 09/09/16 09:30 Dose: 100 mls/hr Insulin Aspart (Novolog Vial Sliding Scale -) 1 vial SQ TIDAC [facility] PRN Reason: Protocol Last Admin: 09/09/16 12:22 Dose: 2 unit Insulin Detemir (Levemir Vial) 20 units SQ DAILY [facility] Last Admin: 09/09/16 12:22 Dose: Not Given Insulin Detemir (Levemir Vial) 15 units SQ [facility] Last Admin: 09/08/16 22:04 Dose: 15 units Lactobacillus Acidophilus (Bacid -) 1 tab PO DAILY [facility] Last Admin: 09/09/16 09:29 Dose: 1 tab Methyl Salicylate (Sterling-Greer -) 1 applic TP BID [facility] Last Admin: 09/09/16 09:31 Dose: Not Given Metoprolol Tartrate (Lopressor -) 50 mg PO BID [facility] Last Admin: 09/09/16 09:30 Dose: 50 mg Mirtazapine (Remeron -) 30 mg PO [facility] Last Admin: 09/08/16 22:05 Dose: 30 mg Miscellaneous (Duragesic Patch Waste) 1 each TD PRN PRN PRN Reason: PAIN Oxycodone HCl (Roxicodone -) 10 mg PO Q6H PRN PRN Reason: PAIN Piperacillin Sod/Tazobactam Sod (Zosyn 3.375gm Ivpb (Pre-Docked)) 3.375 gm IVPB Q8H-IV [facility] PRN Reason: Protocol Last Admin: 09/09/16 09:30 Dose: 3.375 gm Pregabalin (Lyrica -) 100 mg PO BID [facility] Last Admin: 09/09/16 09:30 Dose: 100 mg Sodium Bicarbonate (Sodium Bicarbonate -) 650 mg PO DAILY [facility] Last Admin: 09/09/16 09:30 Dose: 650 mg Trazodone HCl (Desyrel -) 300 mg PO [facility] Last Admin: 09/08/16 22:04 Dose: 300 mg Zinc Sulfate (Orazinc -) 220 mg PO DAILY [facility] Last Admin: 09/09/16 09:30 Dose: 220 mg A/P Volume Overload COPD Anemia Syncope Left Foot Ulcer Infection s/p debridement Gram Positive Bacteremia Acute on Chronic Renal Failure DM - encouraged PRN albuterol if needed - lasix as needed - continue antibiotics - inhaled bronchodilators - transfuse PRBC - monitor H/H - O2 to keep SpO2 >90% - BIPAP as needed to assist in work of breathing - DVT prophylaxis
--- NOTE | 2016-09-09 13:53 | PN ---
Physical Exam: SUBJECTIVE: Patient seen and examined. He has no complaints. He was hypoglycemic again this morning with glucose 32. He was given orange juice. OBJECTIVE: Vital Signs Period Temp Pulse Resp BP Sys/Gutierrez Pulse Ox Last 24 Hr 97.5 F-98.0 F 61-68 18-20 127-143/75-89 99-99 GENERAL: The patient is awake, alert, and fully oriented, in no acute distress. LUNGS: Breath sounds equal, clear to auscultation bilaterally, no wheezes, no crackles, no accessory muscle use. HEART: Regular rate and rhythm, S1, S2 without murmur, rub or gallop. ABDOMEN: Soft, nontender, nondistended, normoactive bowel sounds, no guarding, no rebound, no hepatosplenomegaly, no masses. EXTREMITIES: 2+ pulses, warm, well-perfused, trace edema of LLE. Laboratory Results - last 24 hr 08/20/16 09/06/16 09/08/16 17:10 09:05 07:00 WBC RBC Hgb Hct MCV MCHC RDW Plt Count MPV Neutrophils % Lymphocytes % Monocytes % Eosinophils % Basophils % Sodium Potassium Chloride Carbon Dioxide Anion Gap BUN Creatinine POC Glucometer Random Glucose Calcium Phosphorus Magnesium Iron Y 32 L TIBC 149 L Iron Saturation 21 Blood Type B POSITIVE Antibody Screen Negative Crossmatch See Detail 09/08/16 09/08/16 09/09/16 17:07 20:57 05:50 WBC RBC Hgb Hct MCV MCHC RDW Plt Count MPV Neutrophils % Lymphocytes % Monocytes % Eosinophils % Basophils % Sodium 143 Potassium 5.0 Chloride 106 Carbon Dioxide 29 Anion Gap 8 BUN 72 H Creatinine 3.1 H POC Glucometer 152 178 Random Glucose 32 L* D Calcium 8.0 L Phosphorus 4.8 Magnesium 2.1 Iron TIBC Iron Saturation Blood Type Antibody Screen Crossmatch 09/09/16 09/09/16 09/09/16 06:19 07:15 07:15 WBC 6.1 RBC 2.79 L Hgb 7.3 L Hct 22.5 L MCV 80.7 MCHC 32.3 RDW 25.4 H Plt Count 282 MPV 8.2 Neutrophils % 66.3 Lymphocytes % 17.2 D Monocytes % 7.0 Eosinophils % 8.5 H Basophils % 1.0 Sodium Potassium Chloride Carbon Dioxide Anion Gap BUN Creatinine POC Glucometer 81 Random Glucose 42 L* D Calcium Phosphorus Magnesium Iron TIBC Iron Saturation Blood Type Antibody Screen Crossmatch 09/09/16 09/09/16 10:28 12:04 WBC RBC Hgb Hct MCV MCHC RDW Plt Count MPV Neutrophils % Lymphocytes % Monocytes % Eosinophils % Basophils % Sodium Potassium Chloride Carbon Dioxide Anion Gap BUN Creatinine POC Glucometer 134 197 Random Glucose Calcium Phosphorus Magnesium Iron TIBC Iron Saturation Blood Type Antibody Screen Crossmatch Active Medications Generic Name Dose Route Start Last Admin Trade Name Freq PRN Reason Stop Dose Admin Albuterol Sulfate 1 amp 09/09/16 12:27 Ventolin 0.083% Nebulizer Soln - NEB Q4H PRN SHORT OF BREATH/WHEEZING Albuterol/Ipratropium 1 amp 09/05/16 18:00 09/09/16 11:45 Duoneb - NEB 1 amp QIDR IGGY Administration Amlodipine Besylate 10 mg 09/01/16 10:00 09/09/16 09:30 Norvasc - PO 10 mg DAILY IGGY Administration Ascorbic Acid 500 mg 09/01/16 10:00 09/09/16 09:30 Vitamin C - PO 500 mg DAILY IGGY Administration Calcium Acetate 1,334 mg 08/31/16 12:00 09/09/16 12:22 Phoslo - PO 1,334 mg TIDCM IGGY Administration Doxazosin Mesylate 4 mg 09/01/16 10:00 09/09/16 09:32 Cardura - PO 4 mg DAILY IGGY Administration Duloxetine HCl 30 mg 09/01/16 10:00 09/09/16 09:29 Cymbalta - PO 30 mg DAILY IGGY Administration Epoetin Joe 10,000 unit 09/08/16 13:15 09/08/16 15:00 Procrit - SQ 10,000 unit TUTHSA IGGY Administration Ferrous Sulfate 325 mg 09/01/16 10:00 09/09/16 09:29 Feosol - PO 325 mg DAILY IGGY Administration Folic Acid 1 mg 09/01/16 10:00 09/09/16 09:30 Folic Acid - PO 1 mg DAILY IGGY Administration IV Flush 8 ml 09/03/16 09:35 Picc Line Flush IVPUSH PRN PRN Protocol Famotidine/Sodium Chloride 50 mls @ 100 mls/hr 09/08/16 22:00 09/09/16 09:30 Pepcid 20 Mg Premixed Ivpb - IVPB 100 mls/hr BID IGGY Administration Insulin Aspart 1 vial 08/31/16 11:00 09/09/16 12:22 Novolog Vial Sliding Scale - SQ 2 unit TIDAC IGGY Administration Protocol Insulin Detemir 20 units 09/09/16 10:00 09/09/16 12:22 Levemir Vial SQ Not Given DAILY IGGY Insulin Detemir 15 units 09/08/16 22:00 09/08/16 22:04 Levemir Vial SQ 15 units HS IGGY Administration Lactobacillus Acidophilus 1 tab 09/08/16 10:00 09/09/16 09:29 Bacid - PO 1 tab DAILY IGGY Administration Methyl Salicylate 1 applic 08/31/16 22:00 09/09/16 09:31 Sterling-Greer - TP Not Given BID IGGY Metoprolol Tartrate 50 mg 09/01/16 10:00 09/09/16 09:30 Lopressor - PO 50 mg BID IGGY Administration Mirtazapine 30 mg 08/31/16 22:00 09/08/16 22:05 Remeron - PO 30 mg HS IGGY Administration Miscellaneous 1 each 08/31/16 10:24 Duragesic Patch Waste TD PRN PRN PAIN Oxycodone HCl 10 mg 09/09/16 10:36 Roxicodone - PO Q6H PRN PAIN Piperacillin Sod/Tazobactam Sod 3.375 gm 09/04/16 15:45 09/09/16 09:30 Zosyn 3.375gm Ivpb (Pre-Docked) IVPB 3.375 gm Q8H-IV IGGY Administration Protocol Pregabalin 100 mg 08/31/16 22:00 09/09/16 09:30 Lyrica - PO 100 mg BID IGGY Administration Sodium Bicarbonate 650 mg 09/01/16 10:00 09/09/16 09:30 Sodium Bicarbonate - PO 650 mg DAILY IGGY Administration Trazodone HCl 300 mg 08/31/16 22:00 09/08/16 22:04 Desyrel - PO 300 mg HS IGGY Administration Zinc Sulfate 220 mg 09/01/16 10:00 09/09/16 09:30 Orazinc - PO 220 mg DAILY IGGY Administration ASSESSMENT/PLAN: This is a 60-year-old man with a history of HTH, type 2 DM, peripheral neuropathy, OM of left foot, left foot TMA who presented to the ER after a syncopal episode. 1. Sepsis secondary to left foot osteomyelitis, Strep/Staph bacteremia, healthcare associated pneumonia - s/p bone biopsy 08/27, debridement 08/31 - Continue Zosyn 2. Symptomatic anemia secondary to sepsis - Transfused 11 units PRBCs this admission 3. Anemia secondary to chronic illness - Continue Epogen 4. Hyperkalemia - Improved 5. Acute hypoxic respiratory failure secondary to pneumonia and acute diastolic heart failure from fluid overload - Improved - Continue Lasix as needed 6. Acute kidney injury - Possibly secondary to IV Lasix (last given 09/06), acute interstitial nephritis secondary to Zosyn, Protonix - Protonix discontinued - Creatinine stable 7. Stage 4 CKD 8. Hyperphosphatemia - Continue PhosLo 9. Type 2 DM with peripheral neuropathy - Adjust Levemir for persistent AM hypoglycemia - Continue Novolog sliding scale - Continue Lyrica 10. HTN - Continue Lopressor, Norvasc, Cardura 11. Depression - Continue Cymbalta, Trazodone, Remeron Visit type - Emergency Visit Emergency Visit: Yes ED Registration Date: 08/19/16 Care time: The patient presented to the Emergency Department on the above date and was hospitalized for further evaluation of their emergent condition. - New Patient This patient is new to me today: No - Critical Care Critical Care patient: No - Discharge Referral Referred to [facility] No
--- NOTE | 2016-09-09 14:00 | PN ---
Progress Note, Physician History of Present Illness: Chest tightness and dyspnea overnight, none now. - Current Medication List Current Medications: Active Medications Albuterol Sulfate (Ventolin 0.083% Nebulizer Soln -) 1 amp NEB Q4H PRN PRN Reason: SHORT OF BREATH/WHEEZING Albuterol/Ipratropium (Duoneb -) 1 amp NEB QIDR [facility] Last Admin: 09/09/16 11:45 Dose: 1 amp Amlodipine Besylate (Norvasc -) 10 mg PO DAILY [facility] Last Admin: 09/09/16 09:30 Dose: 10 mg Ascorbic Acid (Vitamin C -) 500 mg PO DAILY [facility] Last Admin: 09/09/16 09:30 Dose: 500 mg Calcium Acetate (Phoslo -) 1,334 mg PO TIDCM [facility] Last Admin: 09/09/16 12:22 Dose: 1,334 mg Doxazosin Mesylate (Cardura -) 4 mg PO DAILY [facility] Last Admin: 09/09/16 09:32 Dose: 4 mg Duloxetine HCl (Cymbalta -) 30 mg PO DAILY [facility] Last Admin: 09/09/16 09:29 Dose: 30 mg Epoetin Joe (Procrit -) 10,000 unit SQ TUTHSA [facility] Last Admin: 09/08/16 15:00 Dose: 10,000 unit Ferrous Sulfate (Feosol -) 325 mg PO DAILY [facility] Last Admin: 09/09/16 09:29 Dose: 325 mg Folic Acid (Folic Acid -) 1 mg PO DAILY [facility] Last Admin: 09/09/16 09:30 Dose: 1 mg IV Flush (Picc Line Flush) 8 ml IVPUSH PRN PRN PRN Reason: Protocol Famotidine/Sodium Chloride (Pepcid 20 Mg Premixed Ivpb -) 50 mls @ 100 mls/hr IVPB BID [facility] Last Admin: 09/09/16 09:30 Dose: 100 mls/hr Insulin Aspart (Novolog Vial Sliding Scale -) 1 vial SQ TIDAC [facility] PRN Reason: Protocol Last Admin: 09/09/16 12:22 Dose: 2 unit Insulin Detemir (Levemir Vial) 20 units SQ DAILY [facility] Last Admin: 09/09/16 12:22 Dose: Not Given Lactobacillus Acidophilus (Bacid -) 1 tab PO DAILY [facility] Last Admin: 05/14/17 09:29 Dose: 1 tab Methyl Salicylate (Sterling-Greer -) 1 applic TP BID [facility] Last Admin: 09/09/16 09:31 Dose: Not Given Metoprolol Tartrate (Lopressor -) 50 mg PO BID [facility] Last Admin: 09/09/16 09:30 Dose: 50 mg Mirtazapine (Remeron -) 30 mg PO HS [facility] Last Admin: 09/08/16 22:05 Dose: 30 mg Miscellaneous (Duragesic Patch Waste) 1 each TD PRN PRN PRN Reason: PAIN Oxycodone HCl (Roxicodone -) 10 mg PO Q6H PRN PRN Reason: PAIN Piperacillin Sod/Tazobactam Sod (Zosyn 3.375gm Ivpb (Pre-Docked)) 3.375 gm IVPB Q8H-IV IGGY PRN Reason: Protocol Last Admin: 09/09/16 09:30 Dose: 3.375 gm Pregabalin (Lyrica -) 100 mg PO BID [facility] Last Admin: 09/09/16 09:30 Dose: 100 mg Sodium Bicarbonate (Sodium Bicarbonate -) 650 mg PO DAILY [facility] Last Admin: 09/09/16 09:30 Dose: 650 mg Trazodone HCl (Desyrel -) 300 mg PO HS [facility] Last Admin: 09/08/16 22:04 Dose: 300 mg Zinc Sulfate (Orazinc -) 220 mg PO DAILY [facility] Last Admin: 09/09/16 09:30 Dose: 220 mg - Objective Vital Signs: Vital Signs Temperature 98.2 F 09/09/16 13:54 Pulse Rate 62 09/09/16 13:54 Respiratory Rate 19 09/09/16 13:54 Blood Pressure 129/77 09/09/16 13:54 O2 Sat by Pulse Oximetry (%) 99 09/08/16 21:00 Constitutional: Yes: No Distress, Calm Neck: Yes: Supple Cardiovascular: Yes: Regular Rate and Rhythm Respiratory: Yes: Regular, Diminished Gastrointestinal: Yes: Normal Bowel Sounds, Soft Edema: Yes Edema: LLE: Trace, RLE: Trace Labs: CBC, BMP 09/09/16 07:15 09/09/16 07:15 INR, PTT INR 1.26 (0.82-1.09) H 08/22/16 08:40 Fibrinogen 355.0 mg/dL (238-498) 08/20/16 17:10 Problem List - Problems (1) Acute hypoxemic respiratory failure Code(s): J96.01 - ACUTE RESPIRATORY FAILURE WITH HYPOXIA (2) Hyperkalemia Code(s): E87.5 - HYPERKALEMIA (3) Severe anemia Code(s): D64.9 - ANEMIA, UNSPECIFIED (4) S/P amputation Code(s): Z89.9 - ACQUIRED ABSENCE OF LIMB, UNSPECIFIED (5) 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 Code(s): E11.9 - TYPE 2 DIABETES MELLITUS WITHOUT COMPLICATIONS Qualifiers: 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 type: type 2 (6) Diabetic neuropathy Code(s): E11.40 - TYPE 2 DIABETES MELLITUS WITH DIABETIC NEUROPATHY, UNSP Qualifiers: 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 type: type 2 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 complication detail: diabetic polyneuropathy Qualified Code(s): E11.42 - Type 2 diabetes mellitus with diabetic polyneuropathy (7) Foot infection Code(s): L08.9 - LOCAL INFECTION OF THE SKIN AND SUBCUTANEOUS TISSUE, UNSP (8) HTN (hypertension) Code(s): I10 - ESSENTIAL (PRIMARY) HYPERTENSION Qualifiers: Hypertension type: essential hypertension Qualified Code(s): I10 - Essential (primary) hypertension (9) Osteomyelitis Code(s): M86.9 - OSTEOMYELITIS, UNSPECIFIED (10) Acute on chronic diastolic heart failure Code(s): I50.33 - ACUTE ON CHRONIC DIASTOLIC (CONGESTIVE) HEART FAILURE Assessment/Plan 08/21/2016 Mild cLVH and mildly dilated LV and normal LV fxn, mild-mod MR, mod TR , mod AMELIA, mild ao dilatation 1. Acute hypoxic respiratory failure referable to acute on chronic diastolic failure, improving 2. Group g strep bacteremia secondary to left foot osteomyelitis s/p bone biopsy 08/27, debridement 08/31 3. Symptomatic anemia, Transfused 10 units PRBCs this admission 4. Acute on CKD 4 with with subnephrotoic proteinuria and hyperkalemia 5. Type 2 DM c/b neuropathy 6. HTN/HCVD P:1. Diuresis as needed with monitor diuretic response, renal fxn and electroytes 2. Bipap as needed, wean FIO2 as saO2 tolerated 3. Continue Norvasc 10 qd, Lopressor 50 bid, Cardura 4 qd, resume Diovan once renal fxn stabilizes and hyperkalemia resolved 4. Complete abx course, wound care 5. DVT and GI prophylaxis
[2016-09-09] MEDS ORDERED: INSULIN (NOVOLOG) ASPART 100 UNITS/ML 10ML VIAL ONE (19:44)
[2016-09-09] MEDS ORDERED: PT OWN MED DRAWER 7, Y5N ONE (19:45)
[2016-09-09] MEDS: MIRTAZAPINE 15 MG TABLET (FP) PO SCH (22:27)
[2016-09-09] MEDS ORDERED: traZODone HCL 50 MG TABLET (FP) ONE (22:31)
[2016-09-09] MEDS: traZODone HCL 100 MG TABLET (FP) PO SCH (22:32)
[2016-09-09] MEDS: oxyCODONE HCL 5 MG TABLET PO PRN (22:33)
[2016-09-10] MEDS: ALBUTEROL SO4 2.5/IPRATROPIUM 0.5 INH SOL 3 ML VIAL.NEB. NEB SCH ×5 (01:17→23:16)
[2016-09-10] MEDS: PIPERACILLIN/TAZOB 3.375 GM/50 ML PRE-DOCKED IVPB SCH ×2 (01:53→09:34)
[2016-09-10] MEDS: INSULIN SLIDING SCALE (NOVOLOG) 1 VIAL SQ SCH ×3 (06:31→18:15)
[2016-09-10 07:09] LABS: EOSINOPHIL 7.8 % (0-4.5); MCH 25.8 pg (25.7-33.7); MEAN CELL VOLUME 80.7 fl (80-96); MEAN PLT VOLUME 7.6 fl (7.5-11.1); NEUTROPHILS 64.9 % (42.8-82.8); PLATELET COUNT 284 K/MM3 (134-434); RDW 25.7 % (11.9-15.9); WHITE BLOOD COUNT 6.6 K/mm3 (4.0-10.0)
[2016-09-10 07:44] LABS: CALCIUM 7.7 mg/dL (8.5-10.1); COCKROFT - GAULT 34.83; CREATININE 3.2 mg/dL (0.7-1.3); MAGNESIUM 2.4 mg/dL (1.8-2.4); PHOSPHOROUS 4.2 mg/dL (2.5-4.9)
[2016-09-10] MEDS: CALCIUM ACETATE 667 MG CAPSULE (FP) PO SCH ×3 (08:47→18:11)
[2016-09-10] MEDS ORDERED: ALBUTEROL SO4 0.083% IH SOL 2.5 MG/3 ML VIAL.NEB. NEB ONE (09:07)
[2016-09-10] MEDS ORDERED: PT OWN MED DRAWER 7, Y5N ONE ×2 (09:25→21:10)
[2016-09-10] MEDS: FAMOTIDINE 20 MG/50 ML IVPB 50 ML IVPB SCH ×2 (09:27→21:33)
[2016-09-10] MEDS ORDERED: SODIUM POLYSTYRENE SULFONATE 15 GM/60 ML BOTTLE PO ONE ×2 (09:30→12:45)
[2016-09-10] MEDS: oxyCODONE HCL 5 MG TABLET PO PRN ×2 (09:31→21:37)
[2016-09-10] MEDS: DULoxetine HCL 30 MG CAPSULE.DR (FP) PO SCH (09:31)
[2016-09-10] MEDS: SODIUM BICARBONATE 650 MG TABLET PO SCH (09:31)
[2016-09-10] MEDS: FOLIC ACID 1 MG TABLET (FP) PO SCH (09:31)
[2016-09-10] MEDS: ASCORBIC ACID 500 MG TABLET (FP) PO SCH (09:31)
[2016-09-10] MEDS: amLODIPine BESYLATE 10 MG TABLET (FP) PO SCH (09:31)
[2016-09-10] MEDS: METOPROLOL TARTRATE 25 MG TABLET (FP) PO SCH ×2 (09:31→21:32)
[2016-09-10] MEDS: DOXAZOSIN MESYLATE 4 MG TABLET PO SCH (09:32)
[2016-09-10] MEDS: LACTOBACILLUS ACIDOPHILUS 1 EACH TAB (FP) PO SCH (09:32)
[2016-09-10] MEDS: FERROUS SO4 325 MG TABLET (FP) PO SCH (09:32)
[2016-09-10] MEDS: PREGABALIN 50 MG CAPSULE PO SCH ×2 (09:32→21:32)
[2016-09-10] MEDS: METHYL SALICYLATE/MENTHOL OINT 30 GM TUBE TP SCH ×2 (09:32→21:30)
[2016-09-10] MEDS: INSULIN DETEMIR 100 UNITS/ML MDV SQ SCH (09:33)
[2016-09-10] MEDS: ZINC SULFATE 220 MG CAPSULE (FP) PO SCH (09:33)
--- NOTE | 2016-09-10 11:35 | PN ---
Physical Exam: SUBJECTIVE: Patient seen and examined by me at bedside. Patient is resting comfortably supine watching TV. Reports having shortness of breath last night but is better in the morning. Patient also reports mild itching of left flank area with "bumps". When inspecting there are no vesicular lesions and likely not Herpes. Spoke to the patient on the possibility that he might be allergic to one of the medications he is taking. Otherwise, denies any fever, chills, nausea, vomiting, chest pain, palpitations. OBJECTIVE: Vital Signs Period Temp Pulse Resp BP Sys/Gutierrez Pulse Ox Last 24 Hr 97.9 F-98.8 F 62-72 19-20 129-151/77-95 96 GENERAL: The patient is awake, alert, and fully oriented, in no acute distress. LUNGS: Rhonchi's on right lung base and crackles throughout lung bases bilaterally. HEART: Regular rate and rhythm, normal S1 and S2 without murmur, rub or gallop. ABDOMEN: Soft, nontender, nondistended, no guarding, no rebound tenderness EXTREMITIES: trace pitting edema in B/L LE. Left metatarsal amputation with gauze wrapped around. Wound Vac in place SKIN: maculopapular rash in the left flank and abdomen area Laboratory Results - last 24 hr 08/20/16 09/06/16 09/09/16 17:10 09:05 05:29 WBC RBC Hgb Hct MCV MCHC RDW Plt Count MPV Neutrophils % Lymphocytes % Monocytes % Eosinophils % Basophils % Sodium Potassium Chloride Carbon Dioxide Anion Gap BUN Creatinine POC Glucometer 45 Random Glucose Calcium Phosphorus Magnesium Iron Y Blood Type B POSITIVE Antibody Screen Negative Crossmatch See Detail 09/09/16 09/09/16 09/09/16 05:56 12:04 17:35 WBC RBC Hgb Hct MCV MCHC RDW Plt Count MPV Neutrophils % Lymphocytes % Monocytes % Eosinophils % Basophils % Sodium Potassium Chloride Carbon Dioxide Anion Gap BUN Creatinine POC Glucometer 48 197 238 Random Glucose Calcium Phosphorus Magnesium Iron Blood Type Antibody Screen Crossmatch 09/09/16 09/10/16 09/10/16 21:15 05:45 06:15 WBC 6.6 RBC 2.85 L Hgb 7.4 L Hct 23.0 L MCV 80.7 MCHC 32.0 RDW 25.7 H Plt Count 284 MPV 7.6 Neutrophils % 64.9 Lymphocytes % 18.2 Monocytes % 8.1 Eosinophils % 7.8 H Basophils % 1.0 Sodium Potassium Chloride Carbon Dioxide Anion Gap BUN Creatinine POC Glucometer 261 270 Random Glucose Calcium Phosphorus Magnesium Iron Blood Type Antibody Screen Crossmatch 09/10/16 06:15 WBC RBC Hgb Hct MCV MCHC RDW Plt Count MPV Neutrophils % Lymphocytes % Monocytes % Eosinophils % Basophils % Sodium 140 Potassium 5.6 H Chloride 104 Carbon Dioxide 26 Anion Gap 10 BUN 69 H Creatinine 3.2 H POC Glucometer Random Glucose 234 H D Calcium 7.7 L Phosphorus 4.2 Magnesium 2.4 Iron Blood Type Antibody Screen Crossmatch Active Medications Generic Name Dose Route Start Last Admin Trade Name Freq PRN Reason Stop Dose Admin Albuterol Sulfate 1 amp 09/09/16 12:27 Ventolin 0.083% Nebulizer Soln - NEB Q4H PRN SHORT OF BREATH/WHEEZING Albuterol/Ipratropium 1 amp 09/05/16 18:00 09/10/16 06:53 Duoneb - NEB 1 amp QIDR IGGY Administration Amlodipine Besylate 10 mg 09/01/16 10:00 09/10/16 09:31 Norvasc - PO 10 mg DAILY IGGY Administration Ascorbic Acid 500 mg 09/01/16 10:00 09/10/16 09:31 Vitamin C - PO 500 mg DAILY IGGY Administration Calcium Acetate 1,334 mg 08/31/16 12:00 09/10/16 08:47 Phoslo - PO 1,334 mg TIDCM IGGY Administration Doxazosin Mesylate 4 mg 09/01/16 10:00 09/10/16 09:32 Cardura - PO 4 mg DAILY IGGY Administration Duloxetine HCl 30 mg 09/01/16 10:00 09/10/16 09:31 Cymbalta - PO 30 mg DAILY IGGY Administration Epoetin Joe 10,000 unit 09/08/16 13:15 09/08/16 15:00 Procrit - SQ 10,000 unit TUTHSA IGGY Administration Ferrous Sulfate 325 mg 09/01/16 10:00 09/10/16 09:32 Feosol - PO 325 mg DAILY IGGY Administration Folic Acid 1 mg 09/01/16 10:00 09/10/16 09:31 Folic Acid - PO 1 mg DAILY IGGY Administration IV Flush 8 ml 09/03/16 09:35 Picc Line Flush IVPUSH PRN PRN Protocol Famotidine/Sodium Chloride 50 mls @ 100 mls/hr 09/08/16 22:00 09/10/16 09:27 Pepcid 20 Mg Premixed Ivpb - IVPB 100 mls/hr BID IGGY Administration Insulin Aspart 1 vial 08/31/16 11:00 09/10/16 06:31 Novolog Vial Sliding Scale - SQ 6 unit TIDAC IGGY Administration Protocol Insulin Detemir 20 units 09/09/16 10:00 09/10/16 09:33 Levemir Vial SQ 20 units DAILY IGGY Administration Lactobacillus Acidophilus 1 tab 09/08/16 10:00 09/10/16 09:32 Bacid - PO 1 tab DAILY IGGY Administration Methyl Salicylate 1 applic 08/31/16 22:00 09/10/16 09:32 Sterling-Greer - TP Not Given BID IGGY Metoprolol Tartrate 50 mg 09/01/16 10:00 09/10/16 09:31 Lopressor - PO 50 mg BID IGGY Administration Mirtazapine 30 mg 08/31/16 22:00 09/09/16 22:27 Remeron - PO 30 mg HS IGGY Administration Miscellaneous 1 each 08/31/16 10:24 Duragesic Patch Waste TD PRN PRN PAIN Oxycodone HCl 10 mg 09/09/16 10:36 09/10/16 09:31 Roxicodone - PO 10 mg Q6H PRN Administration PAIN Piperacillin Sod/Tazobactam Sod 3.375 gm 09/04/16 15:45 09/10/16 09:34 Zosyn 3.375gm Ivpb (Pre-Docked) IVPB 3.375 gm Q8H-IV IGGY Administration Protocol Pregabalin 100 mg 08/31/16 22:00 09/10/16 09:32 Lyrica - PO 100 mg BID IGGY Administration Sodium Bicarbonate 650 mg 09/01/16 10:00 09/10/16 09:31 Sodium Bicarbonate - PO 650 mg DAILY IGGY Administration Trazodone HCl 300 mg 08/31/16 22:00 09/09/16 22:32 Desyrel - PO 300 mg HS IGGY Administration Zinc Sulfate 220 mg 09/01/16 10:00 09/10/16 09:33 Orazinc - PO 220 mg DAILY IGGY Administration Chest X-ray (09/07/2016): Cardiomegaly. Vascular congestive changes, bilateral pleural effusions, airspace opacities in bilateral lower lung zones, right greater than the left. No pneumothorax seen. ASSESSMENT/PLAN: Patient is a 60 year old male with a PMHx of DM with nephropathy and neuropathy s/p left metatarsal amputation, HTN, CKD who presented after a syncopal episode with loss of consciousness and head trauma. Patient was found to have a hemoglobin of 3.7 and WBC of 26.1. Patient admitted for further monitoring and management. Patient was transfused with a total of 11 PRBC since admission and had two debridements of the left foot. Patient then had Wound VAC placed. Patient then began having dyspnea with orthopnea and repeat chest x-ray revealed fluid overload. Patient has been getting diuresed with Lasix PRN. Syncope secondary to Acute on Chronic Anemia-Improving and stable -Today's hgb/hct 7.4 and 23.0 -11 PRBC's since admission -Will begin EPO 3 times weekly, as per nephrology -Ferrous 325mg daily -Folic 1mg -Continue to monitor daily CBC -Heme/Onco consult appreciated Sepsis Secondary to Osteomyelitis- Improved -Remains Afebrile -S/P bone biopsy debridement 08/27/16 and 08/31/16 -Tunneled cath to be placed on Saturday (09/10/16) -Zosyn day #6 for HAP -Will discharge with IV ceftriaxone for a total of 6 weeks of IV antibiotics -Tunneled cath placed today -Continue to trend CBC and ESR Acute Hypoxic Respiratory failure- Improving -Likely secondary to HAP found on chest x-ray and congestive changes -Zosyn 3.375 mg IV Q8H for HAP day #6 -Lasix PRN -Strict I&O's -Pulmonology consult appreciated -Cardiology consult appreciated Acute on chronic renal failure -Creatinine uptrending today 3.2 despite Lasix IV last given on -suspecting possible AIN from Zosyn due to eosinophils increased -U/A sent to see if there is WBC with no leukocyte esterase to help assess if there really is AIN happening -Will consider changing Zosyn to non-penicillin antibiotics. Will contact ID -Continue with daily BMP's and monitoring -Nephrology on case HTN-Controlled -Continue Metoprolol 25mg BID -Norsvac 10mg daily -Diovan held due to FROYLAN Hyperkalemia- acute -Today 5.6 -Kayexelate 45mg and Albuterol x3 given today -Continue to trend -maintain low K diet Hypophosphatemia -Phoslo with meals TID DM II -Morning hypoglycemia yesterday -Levemir now only 20 units in the morning -Insulin sliding scale -BGM F/E/N -On no fluids -Electrolytes wnl -Diabetic/Sodium controlled diet Prophylaxis -SCD's for DVT Disposition -Awaiting for tunnelled catheter to discharge with IV abx Visit type - Emergency Visit Emergency Visit: Yes ED Registration Date: 08/19/16 Care time: The patient presented to the Emergency Department on the above date and was hospitalized for further evaluation of their emergent condition. - New Patient This patient is new to me today: No - Critical Care Critical Care patient: No
--- NOTE | 2016-09-10 11:56 | PN ---
Progress Note, Physician History of Present Illness: No further chest tightness and dyspnea. - Current Medication List Current Medications: Active Medications Albuterol Sulfate (Ventolin 0.083% Nebulizer Soln -) 1 amp NEB Q4H PRN PRN Reason: SHORT OF BREATH/WHEEZING Albuterol/Ipratropium (Duoneb -) 1 amp NEB QIDR [facility] Last Admin: 09/10/16 06:53 Dose: 1 amp Amlodipine Besylate (Norvasc -) 10 mg PO DAILY [facility] Last Admin: 09/10/16 09:31 Dose: 10 mg Ascorbic Acid (Vitamin C -) 500 mg PO DAILY [facility] Last Admin: 09/10/16 09:31 Dose: 500 mg Calcium Acetate (Phoslo -) 1,334 mg PO TIDCM [facility] Last Admin: 09/10/16 08:47 Dose: 1,334 mg Doxazosin Mesylate (Cardura -) 4 mg PO DAILY [facility] Last Admin: 09/10/16 09:32 Dose: 4 mg Duloxetine HCl (Cymbalta -) 30 mg PO DAILY [facility] Last Admin: 09/10/16 09:31 Dose: 30 mg Epoetin Joe (Procrit -) 10,000 unit SQ TUTHSA [facility] Last Admin: 09/08/16 15:00 Dose: 10,000 unit Ferrous Sulfate (Feosol -) 325 mg PO DAILY [facility] Last Admin: 09/10/16 09:32 Dose: 325 mg Folic Acid (Folic Acid -) 1 mg PO DAILY [facility] Last Admin: 09/10/16 09:31 Dose: 1 mg IV Flush (Picc Line Flush) 8 ml IVPUSH PRN PRN PRN Reason: Protocol Famotidine/Sodium Chloride (Pepcid 20 Mg Premixed Ivpb -) 50 mls @ 100 mls/hr IVPB BID [facility] Last Admin: 09/10/16 09:27 Dose: 100 mls/hr Insulin Aspart (Novolog Vial Sliding Scale -) 1 vial SQ TIDAC [facility] PRN Reason: Protocol Last Admin: 09/10/16 06:31 Dose: 6 unit Insulin Detemir (Levemir Vial) 20 units SQ DAILY [facility] Last Admin: 09/10/16 09:33 Dose: 20 units Lactobacillus Acidophilus (Bacid -) 1 tab PO DAILY [facility] Last Admin: 09/10/16 09:32 Dose: 1 tab Methyl Salicylate (Sterling-Greer -) 1 applic TP BID [facility] Last Admin: 09/10/16 09:32 Dose: Not Given Metoprolol Tartrate (Lopressor -) 50 mg PO BID [facility] Last Admin: 09/10/16 09:31 Dose: 50 mg Mirtazapine (Remeron -) 30 mg PO HS [facility] Last Admin: 09/09/16 22:27 Dose: 30 mg Miscellaneous (Duragesic Patch Waste) 1 each TD PRN PRN PRN Reason: PAIN Oxycodone HCl (Roxicodone -) 10 mg PO Q6H PRN PRN Reason: PAIN Last Admin: 09/10/16 09:31 Dose: 10 mg Piperacillin Sod/Tazobactam Sod (Zosyn 3.375gm Ivpb (Pre-Docked)) 3.375 gm IVPB Q8H-IV [facility] PRN Reason: Protocol Last Admin: 09/10/16 09:34 Dose: 3.375 gm Pregabalin (Lyrica -) 100 mg PO BID [facility] Last Admin: 09/10/16 09:32 Dose: 100 mg Sodium Bicarbonate (Sodium Bicarbonate -) 650 mg PO DAILY [facility] Last Admin: 09/10/16 09:31 Dose: 650 mg Trazodone HCl (Desyrel -) 300 mg PO HS [facility] Last Admin: 09/09/16 22:32 Dose: 300 mg Zinc Sulfate (Orazinc -) 220 mg PO DAILY [facility] Last Admin: 09/10/16 09:33 Dose: 220 mg - Objective Vital Signs: Vital Signs Temperature 98.8 F 09/10/16 10:00 Pulse Rate 72 09/10/16 10:00 Respiratory Rate 20 09/10/16 10:00 Blood Pressure 151/87 09/10/16 10:00 O2 Sat by Pulse Oximetry (%) 96 09/09/16 18:51 Constitutional: Yes: No Distress, Calm Neck: Yes: Supple Cardiovascular: Yes: Regular Rate and Rhythm Respiratory: Yes: Regular, Diminished, On Nasal O2 Gastrointestinal: Yes: Normal Bowel Sounds, Soft Extremities: Yes: Amputation Edema: Yes Edema: LLE: 1+ (Wound vac in) Labs: CBC, BMP 09/10/16 06:15 09/10/16 06:15 INR, PTT INR 1.26 (0.82-1.09) H 08/22/16 08:40 Fibrinogen 355.0 mg/dL (238-498) 08/20/16 17:10 Problem List - Problems (1) Acute hypoxemic respiratory failure Code(s): J96.01 - ACUTE RESPIRATORY FAILURE WITH HYPOXIA (2) Hyperkalemia Code(s): E87.5 - HYPERKALEMIA (3) Severe anemia Code(s): D64.9 - ANEMIA, UNSPECIFIED (4) S/P amputation Code(s): Z89.9 - ACQUIRED ABSENCE OF LIMB, UNSPECIFIED (5) 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 Code(s): E11.9 - TYPE 2 DIABETES MELLITUS WITHOUT COMPLICATIONS Qualifiers: 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 type: type 2 (6) Diabetic neuropathy Code(s): E11.40 - TYPE 2 DIABETES MELLITUS WITH DIABETIC NEUROPATHY, UNSP Qualifiers: 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 type: type 2 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 complication detail: diabetic polyneuropathy Qualified Code(s): E11.42 - Type 2 diabetes mellitus with diabetic polyneuropathy (7) Foot infection Code(s): L08.9 - LOCAL INFECTION OF THE SKIN AND SUBCUTANEOUS TISSUE, UNSP (8) HTN (hypertension) Code(s): I10 - ESSENTIAL (PRIMARY) HYPERTENSION Qualifiers: Hypertension type: essential hypertension Qualified Code(s): I10 - Essential (primary) hypertension (9) Osteomyelitis Code(s): M86.9 - OSTEOMYELITIS, UNSPECIFIED (10) Acute on chronic diastolic heart failure Code(s): I50.33 - ACUTE ON CHRONIC DIASTOLIC (CONGESTIVE) HEART FAILURE Assessment/Plan 08/21/2016 Mild cLVH and mildly dilated LV and normal LV fxn, mild-mod MR, mod TR , mod AMELIA, mild ao dilatation 1. Acute hypoxic respiratory failure referable to acute on chronic diastolic failure, improving 2. Group g strep bacteremia secondary to left foot osteomyelitis s/p bone biopsy 08/27, debridement 08/31 3. Symptomatic anemia, Transfused 10 units PRBCs this admission 4. Acute on CKD 4 with with subnephrotoic proteinuria and hyperkalemia 5. Type 2 DM c/b neuropathy 6. HTN/HCVD P:1. Diuresis as needed with monitor diuretic response, renal fxn and electroytes 2. Bipap as needed, wean FIO2 as saO2 tolerated 3. Continue Norvasc 10 qd, Lopressor 50 bid, Cardura 4 qd, resume Diovan once renal fxn stabilizes and hyperkalemia resolved 4. Complete abx course, wound care 5. DVT and GI prophylaxis
--- NOTE | 2016-09-10 12:06 | PN ---
Progress Note (short form) - Note Progress Note: Renal Follow up for FROYLAN/CKD with Hyperkalemia Pt seen and examined at the bedside Vital Signs Temperature 98.8 F 09/10/16 10:00 Pulse Rate 72 09/10/16 10:00 Respiratory Rate 20 09/10/16 10:00 Blood Pressure 151/87 09/10/16 10:00 O2 Sat by Pulse Oximetry (%) 96 09/09/16 18:51 Intake & Output 09/07/16 09/08/16 09/09/16 09/10/16 23:59 23:59 23:59 23:59 Intake Total 1440 1050 660 50 Output Total 820 2100 1200 300 Balance 620 -1050 -540 -250 Weight 224 lb Gen: NAD on NC HEENT: No JVD CVS: RRR, No M/R Lungs: Dec BS throughout the lung [place] , + wheeze Abd: NT/ND Ext: trace to 1+ edema in LLE CBC, BMP 09/10/16 06:15 09/10/16 06:15 Current Medications Albuterol Sulfate (Ventolin 0.083% Nebulizer Soln -) 1 amp NEB Q4H PRN PRN Reason: SHORT OF BREATH/WHEEZING Albuterol/Ipratropium (Duoneb -) 1 amp NEB QIDR [facility] Last Admin: 09/10/16 06:53 Dose: 1 amp Amlodipine Besylate (Norvasc -) 10 mg PO DAILY [facility] Last Admin: 09/10/16 09:31 Dose: 10 mg Ascorbic Acid (Vitamin C -) 500 mg PO DAILY [facility] Last Admin: 09/10/16 09:31 Dose: 500 mg Calcium Acetate (Phoslo -) 1,334 mg PO TIDCM [facility] Last Admin: 09/10/16 08:47 Dose: 1,334 mg Doxazosin Mesylate (Cardura -) 4 mg PO DAILY [facility] Last Admin: 09/10/16 09:32 Dose: 4 mg Duloxetine HCl (Cymbalta -) 30 mg PO DAILY [facility] Last Admin: 09/10/16 09:31 Dose: 30 mg Epoetin Joe (Procrit -) 10,000 unit SQ TUTHSA [facility] Last Admin: 09/08/16 15:00 Dose: 10,000 unit Ferrous Sulfate (Feosol -) 325 mg PO DAILY [facility] Last Admin: 09/10/16 09:32 Dose: 325 mg Folic Acid (Folic Acid -) 1 mg PO DAILY [facility] Last Admin: 09/10/16 09:31 Dose: 1 mg IV Flush (Picc Line Flush) 8 ml IVPUSH PRN PRN PRN Reason: Protocol Famotidine/Sodium Chloride (Pepcid 20 Mg Premixed Ivpb -) 50 mls @ 100 mls/hr IVPB BID [facility] Last Admin: 09/10/16 09:27 Dose: 100 mls/hr Insulin Aspart (Novolog Vial Sliding Scale -) 1 vial SQ TIDAC [facility] PRN Reason: Protocol Last Admin: 09/10/16 06:31 Dose: 6 unit Insulin Detemir (Levemir Vial) 20 units SQ DAILY [facility] Last Admin: 09/10/16 09:33 Dose: 20 units Lactobacillus Acidophilus (Bacid -) 1 tab PO DAILY [facility] Last Admin: 09/10/16 09:32 Dose: 1 tab Methyl Salicylate (Sterling-Greer -) 1 applic TP BID [facility] Last Admin: 09/10/16 09:32 Dose: Not Given Metoprolol Tartrate (Lopressor -) 50 mg PO BID [facility] Last Admin: 09/10/16 09:31 Dose: 50 mg Mirtazapine (Remeron -) 30 mg PO HS [facility] Last Admin: 09/09/16 22:27 Dose: 30 mg Miscellaneous (Duragesic Patch Waste) 1 each TD PRN PRN PRN Reason: PAIN Oxycodone HCl (Roxicodone -) 10 mg PO Q6H PRN PRN Reason: PAIN Last Admin: 09/10/16 09:31 Dose: 10 mg Piperacillin Sod/Tazobactam Sod (Zosyn 3.375gm Ivpb (Pre-Docked)) 3.375 gm IVPB Q8H-IV [facility] PRN Reason: Protocol Last Admin: 09/10/16 09:34 Dose: 3.375 gm Pregabalin (Lyrica -) 100 mg PO BID [facility] Last Admin: 09/10/16 09:32 Dose: 100 mg Sodium Bicarbonate (Sodium Bicarbonate -) 650 mg PO DAILY [facility] Last Admin: 09/10/16 09:31 Dose: 650 mg Trazodone HCl (Desyrel -) 300 mg PO HS [facility] Last Admin: 09/09/16 22:32 Dose: 300 mg Zinc Sulfate (Orazinc -) 220 mg PO DAILY [facility] Last Admin: 09/10/16 09:33 Dose: 220 mg A/P 60 year old Gentleman with PMhx of CKD (baseline unclear), Hypertension, IDDM, PVD who presented s/p syncopal episode and found to have acute Anemia with Hgb of 3.7 and BUN/Cr of 41/2.7 and K of 6.8. #FROYLAN on CKD stage 4 with subnephrotoic proteinuria BUN/Cr remains elevated above baseline despite discontinuation of diuretics Eosinophils remain elevated Urine Eios pending Off PPI, on Zosyn (will hold for now) Repeat UA for check for WBC Ask ID to follow up regarding Abx choice in setting of suspected AIN #CHF/Fluid overload diuretics PRN, off standing Lasix on Abx #Acute on Chronic anemia Transfuse PRBC as needed Epogen 69907 units SC 3x weekly intial iron studies showed low sat but has been transfused several prbc since then repeat studies sent #Hyperphosphatemia continue Phoslo with meals Miguel Jansen DO
--- NOTE | 2016-09-10 12:18 | PN ---
Progress Note (short form) - Note Progress Note: Resting in NAD on NC O2. Chronic pain in the left LE. No CP or SOB. Intake & Output 09/07/16 09/08/16 09/09/16 09/10/16 23:59 23:59 23:59 23:59 Intake Total 1440 1050 660 50 Output Total 820 2100 1200 300 Balance 620 -1050 -540 -250 Weight 224 lb Last Vital Signs Temp Pulse Resp BP Pulse Ox 98.8 F 72 20 151/87 96 09/10/16 10:00 09/10/16 10:00 09/10/16 10:00 09/10/16 10:00 09/09/16 18:51 Active Medications Albuterol Sulfate (Ventolin 0.083% Nebulizer Soln -) 1 amp NEB Q4H PRN PRN Reason: SHORT OF BREATH/WHEEZING Albuterol/Ipratropium (Duoneb -) 1 amp NEB QIDR [facility] Last Admin: 09/10/16 06:53 Dose: 1 amp Amlodipine Besylate (Norvasc -) 10 mg PO DAILY [facility] Last Admin: 09/10/16 09:31 Dose: 10 mg Ascorbic Acid (Vitamin C -) 500 mg PO DAILY [facility] Last Admin: 09/10/16 09:31 Dose: 500 mg Calcium Acetate (Phoslo -) 1,334 mg PO TIDCM [facility] Last Admin: 09/10/16 08:47 Dose: 1,334 mg Doxazosin Mesylate (Cardura -) 4 mg PO DAILY [facility] Last Admin: 09/10/16 09:32 Dose: 4 mg Duloxetine HCl (Cymbalta -) 30 mg PO DAILY [facility] Last Admin: 09/10/16 09:31 Dose: 30 mg Epoetin Joe (Procrit -) 10,000 unit SQ TUTHSA [facility] Last Admin: 09/08/16 15:00 Dose: 10,000 unit Ferrous Sulfate (Feosol -) 325 mg PO DAILY [facility] Last Admin: 09/10/16 09:32 Dose: 325 mg Folic Acid (Folic Acid -) 1 mg PO DAILY [facility] Last Admin: 09/10/16 09:31 Dose: 1 mg IV Flush (Picc Line Flush) 8 ml IVPUSH PRN PRN PRN Reason: Protocol Famotidine/Sodium Chloride (Pepcid 20 Mg Premixed Ivpb -) 50 mls @ 100 mls/hr IVPB BID [facility] Last Admin: 09/10/16 09:27 Dose: 100 mls/hr Insulin Aspart (Novolog Vial Sliding Scale -) 1 vial SQ TIDAC [facility] PRN Reason: Protocol Last Admin: 09/10/16 06:31 Dose: 6 unit Insulin Detemir (Levemir Vial) 20 units SQ DAILY [facility] Last Admin: 09/10/16 09:33 Dose: 20 units Lactobacillus Acidophilus (Bacid -) 1 tab PO DAILY [facility] Last Admin: 09/10/16 09:32 Dose: 1 tab Methyl Salicylate (Sterling-Greer -) 1 applic TP BID [facility] Last Admin: 09/10/16 09:32 Dose: Not Given Metoprolol Tartrate (Lopressor -) 50 mg PO BID [facility] Last Admin: 09/10/16 09:31 Dose: 50 mg Mirtazapine (Remeron -) 30 mg PO HS [facility] Last Admin: 09/09/16 22:27 Dose: 30 mg Miscellaneous (Duragesic Patch Waste) 1 each TD PRN PRN PRN Reason: PAIN Oxycodone HCl (Roxicodone -) 10 mg PO Q6H PRN PRN Reason: PAIN Last Admin: 09/10/16 09:31 Dose: 10 mg Piperacillin Sod/Tazobactam Sod (Zosyn 3.375gm Ivpb (Pre-Docked)) 3.375 gm IVPB Q8H-IV [facility] PRN Reason: Protocol Last Admin: 09/10/16 09:34 Dose: 3.375 gm Pregabalin (Lyrica -) 100 mg PO BID [facility] Last Admin: 09/10/16 09:32 Dose: 100 mg Sodium Bicarbonate (Sodium Bicarbonate -) 650 mg PO DAILY [facility] Last Admin: 09/10/16 09:31 Dose: 650 mg Trazodone HCl (Desyrel -) 300 mg PO HS [facility] Last Admin: 09/09/16 22:32 Dose: 300 mg Zinc Sulfate (Orazinc -) 220 mg PO DAILY [facility] Last Admin: 09/10/16 09:33 Dose: 220 mg OBJECTIVE: Gen: NAD at rest Heart: RRR Lung: decreased breath sounds at the bases Abd: soft, nontender Ext: + edema, dressing intact Laboratory Results - last 24 hr 08/20/16 09/09/1609/09/17 17:10 05:29 05:56 WBC RBC Hgb Hct MCV MCHC RDW Plt Count MPV Neutrophils % Lymphocytes % Monocytes % Eosinophils % Basophils % Sodium Potassium Chloride Carbon Dioxide Anion Gap BUN Creatinine POC Glucometer 45 48 Random Glucose Calcium Phosphorus Magnesium Iron Y 09/09/16 09/09/16 09/09/16 12:04 17:35 21:15 WBC RBC Hgb Hct MCV MCHC RDW Plt Count MPV Neutrophils % Lymphocytes % Monocytes % Eosinophils % Basophils % Sodium Potassium Chloride Carbon Dioxide Anion Gap BUN Creatinine POC Glucometer 197 238 261 Random Glucose Calcium Phosphorus Magnesium Iron 09/10/16 09/10/16 09/10/16 05:45 06:15 06:15 WBC 6.6 RBC 2.85 L Hgb 7.4 L Hct 23.0 L MCV 80.7 MCHC 32.0 RDW 25.7 H Plt Count 284 MPV 7.6 Neutrophils % 64.9 Lymphocytes % 18.2 Monocytes % 8.1 Eosinophils % 7.8 H Basophils % 1.0 Sodium 140 Potassium 5.6 H Chloride 104 Carbon Dioxide 26 Anion Gap 10 BUN 69 H Creatinine 3.2 H POC Glucometer 270 Random Glucose 234 H D Calcium 7.7 L Phosphorus 4.2 Magnesium 2.4 Iron ASSESSMENT AND PLAN: Syncope Anemia Left foot ulcer infection s/p debridement Gram Positive Bacteremia Sepsis Acute on Chronic Renal Failure Hyperkalemia DM (?) Nerve impingement causing symptoms - Local wound care - ABX - Pain control - glucose control - PO as tolerated - OOB to chair - PT/OT Dr Butt
--- NOTE | 2016-09-10 12:31 | PN ---
[id number] multiple bone biopsies of the medial and distal aspect of the left foot in light of a magnetic resonance imaging study highly suggestive of osteomyelitis of the residual metatarsals, greater and lesser tarsal bones and of the tibia and fibula. He is also s/p extensive osseous debridement (10 days ago ) of the focus of the infection at the region of the subtalar articulation and posterior superior calcaneous with insertion of vancomycin and gentamicin infused bio-absorbable antibiotic beads. ( Stimulans) History of Present Illness: Patient with long history of osteomyelitis of the LLL is followed after incision and drainage of abscess, then bone biopsies, and finally osseous debridement of the greater tarsus with antibiotic infused Stimulans insertion. and is to be evaluated for management of osteomyelitis of all osseous structures of the foot and the distal leg as well as wound care. - Current Medication List Current Medications: Active Medications Albuterol Sulfate (Ventolin 0.083% Nebulizer Soln -) 1 amp NEB Q4H PRN PRN Reason: SHORT OF BREATH/WHEEZING Albuterol/Ipratropium (Duoneb -) 1 amp NEB QIDR [facility] Last Admin: 09/10/16 06:53 Dose: 1 amp Amlodipine Besylate (Norvasc -) 10 mg PO DAILY [facility] Last Admin: 09/10/16 09:31 Dose: 10 mg Ascorbic Acid (Vitamin C -) 500 mg PO DAILY [facility] Last Admin: 09/10/16 09:31 Dose: 500 mg Calcium Acetate (Phoslo -) 1,334 mg PO TIDCM [facility] Last Admin: 09/10/16 12:19 Dose: 1,334 mg Doxazosin Mesylate (Cardura -) 4 mg PO DAILY [facility] Last Admin: 09/10/16 09:32 Dose: 4 mg Duloxetine HCl (Cymbalta -) 30 mg PO DAILY [facility] Last Admin: 09/10/16 09:31 Dose: 30 mg Epoetin Joe (Procrit -) 10,000 unit SQ TUTHSA [facility] Last Admin: 09/08/16 15:00 Dose: 10,000 unit Ferrous Sulfate (Feosol -) 325 mg PO DAILY [facility] Last Admin: 09/10/16 09:32 Dose: 325 mg Folic Acid (Folic Acid -) 1 mg PO DAILY [facility] Last Admin: 09/10/16 09:31 Dose: 1 mg IV Flush (Picc Line Flush) 8 ml IVPUSH PRN PRN PRN Reason: Protocol Famotidine/Sodium Chloride (Pepcid 20 Mg Premixed Ivpb -) 50 mls @ 100 mls/hr IVPB BID [facility] Last Admin: 09/10/16 09:27 Dose: 100 mls/hr Insulin Aspart (Novolog Vial Sliding Scale -) 1 vial SQ TIDAC [facility] PRN Reason: Protocol Last Admin: 09/10/16 12:23 Dose: 6 unit Insulin Detemir (Levemir Vial) 20 units SQ DAILY [facility] Last Admin: 09/10/16 09:33 Dose: 20 units Lactobacillus Acidophilus (Bacid -) 1 tab PO DAILY [facility] Last Admin: 09/10/16 09:32 Dose: 1 tab Methyl Salicylate (Sterling-Greer -) 1 applic TP BID [facility] Last Admin: 09/10/16 09:32 Dose: Not Given Metoprolol Tartrate (Lopressor -) 50 mg PO BID [facility] Last Admin: 09/10/16 09:31 Dose: 50 mg Mirtazapine (Remeron -) 30 mg PO HS [facility] Last Admin: 09/09/16 22:27 Dose: 30 mg Miscellaneous (Duragesic Patch Waste) 1 each TD PRN PRN PRN Reason: PAIN Oxycodone HCl (Roxicodone -) 10 mg PO Q6H PRN PRN Reason: PAIN Last Admin: 09/10/16 09:31 Dose: 10 mg Piperacillin Sod/Tazobactam Sod (Zosyn 3.375gm Ivpb (Pre-Docked)) 3.375 gm IVPB Q8H-IV [facility] PRN Reason: Protocol Last Admin: 09/10/16 09:34 Dose: 3.375 gm Pregabalin (Lyrica -) 100 mg PO BID [facility] Last Admin: 09/10/16 09:32 Dose: 100 mg Sodium Bicarbonate (Sodium Bicarbonate -) 650 mg PO DAILY [facility] Last Admin: 09/10/16 09:31 Dose: 650 mg Trazodone HCl (Desyrel -) 300 mg PO HS [facility] Last Admin: 09/09/16 22:32 Dose: 300 mg Zinc Sulfate (Orazinc -) 220 mg PO DAILY [facility] Last Admin: 09/10/16 09:33 Dose: 220 mg - Objective Vital Signs: Vital Signs Temperature 37.1 C 09/10/16 10:00 Pulse Rate 72 05/15/17 10:00 Respiratory Rate 20 09/10/16 10:00 Blood Pressure 151/87 09/10/16 10:00 O2 Sat by Pulse Oximetry (%) 96 09/09/16 18:51 Constitutional: Yes: Well Nourished, No Distress Neck: Yes: WNL Cardiovascular: Yes: WNL Respiratory: Yes: WNL Extremities: Yes: Amputation, Deformity, Erythema Edema: LLE: 1+, RLE: Trace Peripheral Pulses WNL: Yes Peripheral Pulses: Left Doralis Pedis: 2+, Right Dorsalis Pedis: 2+ Integumentary: Yes: Incision, Skin Tear Wound/Incision: Yes: Dressing Removed, Unapproximated (30 % slough) Neurological: Yes: Loss of Sensation, Numbness, Paresthesia, Pre-Existing Deficit, Tingling ...Motor Strength: WNL Psychiatric: Yes: WNL Additional Findings/Remarks: Wound developing more slough and will need another debridement. Bedside debridement of this wound not appropriate at this time given depth- will wait when I attend patient at [facility] next Saturday No exposed bone in the DFU at this time. Discussed discharge planning as far ast the wound is concerned with the house staff who will be preparing the discharge orders: 1. Needs NWPT (preferably [facility] Wound VAC) at facility 2. Stimulans antibiotic beads are biodegradable and are to be reinserted back in wound during dressing/VAC changes 3. Discharge expected today to [facility] so did not replace VAC. If staying overnight- please re apply at 125mm Hg continuous Total time on morgan, discussion with patient, RN and house staff exceeded 40 minutes. Labs: CBC, BMP 09/10/16 06:15 09/10/16 06:15 INR, PTT INR 1.26 (0.82-1.09) H 08/22/16 08:40 Fibrinogen 355.0 mg/dL (238-498) 08/20/16 17:10
--- NOTE | 2016-09-10 13:45 | PN ---
Progress Note (short form) - Note Progress Note: ID Zosyn Discussed with house staff regarding worsening renal function Selected Entries 09/10/16 10:00 Temperature 98.8 F Pulse Rate 72 Respiratory 20 Rate Blood Pressure 151/87 Laboratory Tests 11/08/14 11/08/14 07:45 07:45 WBC 6.0 Hgb 10.4 L D Plt Count 304 BUN 13 Creatinine 1.1 Microbiology 08/27/16 18:50 Foot - Left Dorsum Gram Stain - Final 08/27/16 18:50 Foot - Left Dorsum Wound Culture - Final Beta Hem Streptococcus Group G 08/21/16 21:20 Foot - Left Instep Gram Stain - Final 08/21/16 21:20 Foot - Left Instep Wound Culture - Final Beta Hem Streptococcus Group G 08/21/16 03:00 Abscess Gram Stain - Final 08/21/16 03:00 Abscess Wound Culture - Final Beta Hem Streptococcus Group G 08/19/16 22:20 Blood - Peripheral Venous Blood Culture - Final Staphylococcus Epidermidis#2 Staphylococcus Epidermidis Staphylococcus Epidermidis#3 08/19/16 22:20 Blood - Peripheral Venous Blood Culture - Final Beta Hem Streptococcus Group G Staphylococcus Epidermidis Laboratory Tests 09/08/16 09/10/16 09/10/16 19:15 06:15 06:15 WBC 6.6 Hgb 7.4 L Hct 23.0 L Plt Count 284 Neutrophils % 64.9 Lymphocytes % 18.2 Monocytes % 8.1 Eosinophils % 7.8 H BUN 69 H Creatinine 3.2 H Urine Eosinophils Pending Assessment Osteomyelitis post debridement ALl Group G strep with bacteremia Question of interstitial nephritis raised possible Zosyn related Eosinophilia noted Plan Stop Zosyn Ceftriaxone 2 gram IVPB Urine for eosinophils Evita PARADA
[2016-09-10 14:06] LABS: URINE APPEARANCE CLEAR; URINE BILIRUBIN NEGATIVE (NEGATIVE); URINE COLOR LTYELLOW; URINE GLUCOSE (UA) NEGATIVE (NEGATIVE); URINE KETONE NEGATIVE (NEGATIVE); URINE LEUK ESTERASE NEGATIVE (NEGATIVE); URINE NITRITE NEGATIVE (NEGATIVE); URINE UROBILINOGEN NEGATIVE E.U./dl (0.2-1.0)
[2016-09-10 14:34] LABS: URINE BLOOD 1+ (NEGATIVE); URINE PROTEIN 2+ (NEGATIVE)
--- NOTE | 2016-09-10 14:46 | PN ---
Teaching Attending Note Name of Resident: Marlena Bello ATTENDING PHYSICIAN STATEMENT I saw and evaluated the patient. I reviewed the resident's note and discussed the case with the resident. I agree with the resident's findings and plan as documented. SUBJECTIVE: No complaints. OBJECTIVE: Vital Signs Period Temp Pulse Resp BP Sys/Gutierrez Pulse Ox Last 24 Hr 97.9 F-98.8 F 63-72 20-20 133-151/83-95 92-96 GENERAL: The patient is awake, alert, and fully oriented, in no acute distress. LUNGS: Breath sounds equal, clear to auscultation bilaterally, no wheezes, no crackles, no accessory muscle use. HEART: Regular rate and rhythm, S1, S2 without murmur, rub or gallop. ABDOMEN: Soft, nontender, nondistended, normoactive bowel sounds, no guarding, no rebound, no hepatosplenomegaly, no masses. EXTREMITIES: 2+ pulses, warm, well-perfused, trace edema of LLE. ASSESSMENT AND PLAN: This is a 60-year-old man with a history of HTH, type 2 DM, peripheral neuropathy, OM of left foot, left foot TMA who presented to the ER after a syncopal episode. 1. Sepsis secondary to left foot osteomyelitis, Strep/Staph bacteremia, healthcare associated pneumonia - s/p bone biopsy 08/27, debridement 08/31 - Zosyn discontinued secondary to possible AIN/eosinophilia - Rocephin started 2. Symptomatic anemia secondary to sepsis - Transfused 11 units PRBCs this admission - Hemoglobin stable - Continue Epogen - IV iron ordered 3. Anemia secondary to chronic illness - Continue Epogen - IV iron ordered 4. Hyperkalemia - Kayexalate and Albuterol given 5. Acute hypoxic respiratory failure secondary to pneumonia and acute diastolic heart failure from fluid overload - Improved - Continue Lasix as needed 6. Acute kidney injury - Possibly secondary to IV Lasix (last given 09/06), acute interstitial nephritis secondary to Zosyn, Protonix - Protonix, Zosyn discontinued - Creatinine stable 7. Stage 4 CKD 8. Hyperphosphatemia - Continue PhosLo 9. Type 2 DM with peripheral neuropathy - No further hypoglycemia - Continue Levemir once a day in AM and adjust dose as needed to achieve better control - Continue Novolog sliding scale - Continue Lyrica 10. HTN - Continue Lopressor, Norvasc, Cardura 11. Depression - Continue Cymbalta, Trazodone, Remeron
[2016-09-10 14:55] LABS: URINE RBC 4 /hpf (0-3); URINE WBC 2 /hpf (3-5)
[2016-09-10] MEDS: CEFTRIAXONE 100 ML IVPB SCH (14:57)
[2016-09-10] MEDS ORDERED: IRON SUCROSE INJECTION 100 MG in SODIUM CHLORIDE 95 ML IVPB ONE (18:00)
[2016-09-10] MEDS ORDERED: traZODone HCL 50 MG TABLET (FP) ONE (21:09)
[2016-09-10] MEDS: traZODone HCL 100 MG TABLET (FP) PO SCH (21:31)
[2016-09-10] MEDS: MIRTAZAPINE 15 MG TABLET (FP) PO SCH (21:33)
[2016-09-11] MEDS: INSULIN SLIDING SCALE (NOVOLOG) 1 VIAL SQ SCH ×3 (06:26→17:30)
[2016-09-11] MEDS: ALBUTEROL SO4 2.5/IPRATROPIUM 0.5 INH SOL 3 ML VIAL.NEB. NEB SCH ×5 (07:05→23:47)
[2016-09-11 08:24] LABS: MCH 25.7 pg (25.7-33.7); MCHC 31.9 g/dl (32.0-35.9); MEAN CELL VOLUME 80.4 fl (80-96); MEAN PLT VOLUME 7.5 fl (7.5-11.1); PLATELET COUNT 306 K/MM3 (134-434); RDW 26.6 % (11.9-15.9); WHITE BLOOD COUNT 8.6 K/mm3 (4.0-10.0)
[2016-09-11 08:53] LABS: ALBUMIN 2.1 g/dl (3.4-5.0); CALCIUM 8.3 mg/dL (8.5-10.1)
[2016-09-11 08:55] LABS: BILIRUBIN,TOTAL 0.3 mg/dL (0.2-1.0); COCKROFT - GAULT 37.16; TOT PROT 7.8 g/dl (6.4-8.2)
[2016-09-11] MEDS: METOPROLOL TARTRATE 25 MG TABLET (FP) PO SCH ×2 (10:14→21:54)
[2016-09-11] MEDS: PREGABALIN 50 MG CAPSULE PO SCH ×2 (10:14→21:55)
[2016-09-11] MEDS: ZINC SULFATE 220 MG CAPSULE (FP) PO SCH (10:14)
[2016-09-11] MEDS: ASCORBIC ACID 500 MG TABLET (FP) PO SCH (10:15)
[2016-09-11] MEDS: FOLIC ACID 1 MG TABLET (FP) PO SCH (10:15)
[2016-09-11] MEDS: SODIUM BICARBONATE 650 MG TABLET PO SCH (10:15)
[2016-09-11] MEDS: FERROUS SO4 325 MG TABLET (FP) PO SCH (10:15)
[2016-09-11] MEDS: DULoxetine HCL 30 MG CAPSULE.DR (FP) PO SCH (10:15)
[2016-09-11] MEDS: amLODIPine BESYLATE 10 MG TABLET (FP) PO SCH (10:15)
[2016-09-11] MEDS: INSULIN DETEMIR 100 UNITS/ML MDV SQ SCH (10:16)
[2016-09-11] MEDS: METHYL SALICYLATE/MENTHOL OINT 30 GM TUBE TP SCH ×2 (10:16→21:58)
[2016-09-11] MEDS: LACTOBACILLUS ACIDOPHILUS 1 EACH TAB (FP) PO SCH (10:16)
[2016-09-11] MEDS: CALCIUM ACETATE 667 MG CAPSULE (FP) PO SCH ×3 (10:16→17:41)
[2016-09-11] MEDS: DOXAZOSIN MESYLATE 4 MG TABLET PO SCH (10:16)
[2016-09-11] MEDS: FAMOTIDINE 20 MG/50 ML IVPB 50 ML IVPB SCH ×2 (10:17→21:55)
[2016-09-11] MEDS: CEFTRIAXONE 100 ML IVPB SCH (10:17)
[2016-09-11] MEDS: oxyCODONE HCL 5 MG TABLET PO PRN ×2 (10:41→21:57)
[2016-09-11 12:21] LABS: BASOPHIL 1.1 % (0-2.0); EOSINOPHIL 6.3 % (0-4.5); MCH 26.1 pg (25.7-33.7); MCHC 32.2 g/dl (32.0-35.9); MEAN PLT VOLUME 8.1 fl (7.5-11.1); NEUTROPHILS 71.6 % (42.8-82.8); PLATELET COUNT 299 K/MM3 (134-434); RDW 26.2 % (11.9-15.9); WHITE BLOOD COUNT 8.6 K/mm3 (4.0-10.0)
--- NOTE | 2016-09-11 12:35 | PN ---
Progress Note (short form) - Note Progress Note: Renal Follow up for FROYLAN/CKD with Hyperkalemia Pt seen and examined at the bedside reports increased SOB today but laying flat and appears comfortable also reports that puritis has worsened reports good urine output no flank pain, chest pain, N/V/D Vital Signs Temperature 97.4 F L 09/10/16 22:00 Pulse Rate 75 09/11/16 10:00 Respiratory Rate 20 09/11/16 10:00 Blood Pressure 158/68 09/11/16 10:00 O2 Sat by Pulse Oximetry (%) 91 L 09/11/16 10:00 Intake & Output 09/08/16 09/09/16 09/10/16 09/11/16 23:59 23:59 23:59 23:59 Intake Total 6172 911 0460 600 Output Total 2100 1200 3050 900 Balance -1050 -540 -1700 -300 Weight 224 lb Gen: NAD on NC HEENT: No JVD CVS: RRR, No M/R Lungs: Dec BS throughout the lung [place] , + wheeze Abd: NT/ND Ext: trace to 1+ edema in LLE CBC, BMP 09/10/16 06:15 09/10/16 06:15 Laboratory Tests 09/11/16 08:00 Calcium 8.3 L Albumin 2.1 L Current Medications Albuterol Sulfate (Ventolin 0.083% Nebulizer Soln -) 1 amp NEB Q4H PRN PRN Reason: SHORT OF BREATH/WHEEZING Albuterol/Ipratropium (Duoneb -) 1 amp NEB QIDR [facility] Last Admin: 09/10/16 06:53 Dose: 1 amp Amlodipine Besylate (Norvasc -) 10 mg PO DAILY [facility] Last Admin: 09/10/16 09:31 Dose: 10 mg Ascorbic Acid (Vitamin C -) 500 mg PO DAILY [facility] Last Admin: 09/10/16 09:31 Dose: 500 mg Calcium Acetate (Phoslo -) 1,334 mg PO TIDCM [facility] Last Admin: 09/10/16 08:47 Dose: 1,334 mg Doxazosin Mesylate (Cardura -) 4 mg PO DAILY [facility] Last Admin: 09/10/16 09:32 Dose: 4 mg Duloxetine HCl (Cymbalta -) 30 mg PO DAILY [facility] Last Admin: 09/10/16 09:31 Dose: 30 mg Epoetin Joe (Procrit -) 10,000 unit SQ TUTHSA [facility] Last Admin: 09/08/16 15:00 Dose: 10,000 unit Ferrous Sulfate (Feosol -) 325 mg PO DAILY [facility] Last Admin: 09/10/16 09:32 Dose: 325 mg Folic Acid (Folic Acid -) 1 mg PO DAILY [facility] Last Admin: 09/10/16 09:31 Dose: 1 mg IV Flush (Picc Line Flush) 8 ml IVPUSH PRN PRN PRN Reason: Protocol Famotidine/Sodium Chloride (Pepcid 20 Mg Premixed Ivpb -) 50 mls @ 100 mls/hr IVPB BID [facility] Last Admin: 09/10/16 09:27 Dose: 100 mls/hr Insulin Aspart (Novolog Vial Sliding Scale -) 1 vial SQ TIDAC [facility] PRN Reason: Protocol Last Admin: 09/10/16 06:31 Dose: 6 unit Insulin Detemir (Levemir Vial) 20 units SQ DAILY [facility] Last Admin: 09/10/16 09:33 Dose: 20 units Lactobacillus Acidophilus (Bacid -) 1 tab PO DAILY [facility] Last Admin: 09/10/16 09:32 Dose: 1 tab Methyl Salicylate (Sterling-Greer -) 1 applic TP BID [facility] Last Admin: 09/10/16 09:32 Dose: Not Given Metoprolol Tartrate (Lopressor -) 50 mg PO BID [facility] Last Admin: 09/10/16 09:31 Dose: 50 mg Mirtazapine (Remeron -) 30 mg PO HS [facility] Last Admin: 09/09/16 22:27 Dose: 30 mg Miscellaneous (Duragesic Patch Waste) 1 each TD PRN PRN PRN Reason: PAIN Oxycodone HCl (Roxicodone -) 10 mg PO Q6H PRN PRN Reason: PAIN Last Admin: 09/10/16 09:31 Dose: 10 mg Piperacillin Sod/Tazobactam Sod (Zosyn 3.375gm Ivpb (Pre-Docked)) 3.375 gm IVPB Q8H-IV [facility] PRN Reason: Protocol Last Admin: 09/10/16 09:34 Dose: 3.375 gm Pregabalin (Lyrica -) 100 mg PO BID [facility] Last Admin: 09/10/16 09:32 Dose: 100 mg Sodium Bicarbonate (Sodium Bicarbonate -) 650 mg PO DAILY [facility] Last Admin: 09/10/16 09:31 Dose: 650 mg Trazodone HCl (Desyrel -) 300 mg PO HS [facility] Last Admin: 09/09/16 22:32 Dose: 300 mg Zinc Sulfate (Orazinc -) 220 mg PO DAILY [facility] Last Admin: 09/10/16 09:33 Dose: 220 mg A/P 60 year old Gentleman with PMhx of CKD (baseline unclear), Hypertension, IDDM, PVD who presented s/p syncopal episode and found to have acute Anemia with Hgb of 3.7 and BUN/Cr of 41/2.7 and K of 6.8. #FROYLAN on CKD stage 4 with subnephrotoic proteinuria Volume depletion vs AIN no clinical signs of volume depletion Serum Eios elevated up to yesterday, added on diff to am labs BUN/Cr unchanged today off Zosyn at this time, started on Ceftrixaone has not received diuretics since last week urine output is good abd rash is still present but does not appear as a classic drug rash UA showed only 2 WBCs (would expect to see a big number with AIN) Urine Eios pending #CHF/Fluid overload Pt complaints of sob but no overt fluid on lung exam Consider checking portable CXR #Acute on Chronic anemia Transfuse PRBC as needed Epogen 22988 units SC 3x weekly #Hyperphosphatemia continue Phoslo with meals if renal function remains stable and serum eios and downtrending can consider discharge with close outpatient monitoring of renal function Miguel Jansen DO
[2016-09-11] MEDS ORDERED: INSULIN DETEMIR 100 UNITS/ML MDV SQ ONE (12:46)
--- NOTE | 2016-09-11 12:56 | PN ---
Progress Note (short form) - Note Progress Note: awake and alert, feels better s/p bone biopsy 5/ s/p further debridement 5/5 s/p transfusion Vital Signs Period Temp Pulse Resp BP Sys/Gutierrez Pulse Ox Last 24 Hr 97.4 F-98.4 F 51-75 18-36 141-158/68-93 91-96 cor-rrr lungs bilateral wheeze abd soft,nt ext VAC intact flank rash and rash on upper thigh- pigmented and papular- patinet reports chronic- he head at time of admission CBC, BMP 09/11/16 08:00 09/11/16 08:00 a/p bacteremia- group G strep/staph epi foot abscess s/p debridement chf- possible pneumonia RLL Osteomyelitis s/p bone biopsy- group G strep is the pathogen, anemia-refractory feli/ckd- ?interstitial nephritis- f/u urine eosinophils diabetes s/p vanco 2 weeks for staph epi bacteremia plan ceftriaxone 2 grams daily for 6 weeks total for osteomyelitis- currently day #22 f/u esr/crp as outpt
[2016-09-11] MEDS: EPOETIN ALFA 10,000 UNIT/1 ML VIAL SQ SCH (13:52)
[2016-09-11] MEDS ORDERED: IRON SUCROSE INJECTION 100 MG in SODIUM CHLORIDE 95 ML IVPB ONE (15:07)
--- NOTE | 2016-09-11 16:59 | PN ---
Progress Note (short form) - Note Progress Note: Resting in NAD on NC O2. No CP or SOB. OBJECTIVE: Intake & Output 09/08/16 09/09/16 09/10/16 09/11/16 23:59 23:59 23:59 23:59 Intake Total 2617 932 9468 1100 Output Total 2100 1200 3050 1300 Balance -1050 -540 -1700 -200 Weight 224 lb Last Vital Signs Temp Pulse Resp BP Pulse Ox 97.8 F 65 20 156/98 91 L 09/11/16 16:27 09/11/16 16:27 09/11/16 16:27 09/11/16 16:27 09/11/16 10:00 Active Medications Albuterol Sulfate (Ventolin 0.083% Nebulizer Soln -) 1 amp NEB Q4H PRN PRN Reason: SHORT OF BREATH/WHEEZING Albuterol/Ipratropium (Duoneb -) 1 amp NEB QIDR [facility] Last Admin: 09/11/16 11:10 Dose: Not Given Amlodipine Besylate (Norvasc -) 10 mg PO DAILY [facility] Last Admin: 09/11/16 10:15 Dose: 10 mg Ascorbic Acid (Vitamin C -) 500 mg PO DAILY [facility] Last Admin: 09/11/16 10:15 Dose: 500 mg Calcium Acetate (Phoslo -) 1,334 mg PO TIDCM [facility] Last Admin: 09/11/16 11:36 Dose: 1,334 mg Doxazosin Mesylate (Cardura -) 4 mg PO DAILY [facility] Last Admin: 09/11/16 10:16 Dose: 4 mg Duloxetine HCl (Cymbalta -) 30 mg PO DAILY [facility] Last Admin: 09/11/16 10:15 Dose: 30 mg Epoetin Joe (Procrit -) 10,000 unit SQ TUTHSA [facility] Last Admin: 09/11/16 13:52 Dose: 10,000 unit Ferrous Sulfate (Feosol -) 325 mg PO DAILY [facility] Last Admin: 09/11/16 10:15 Dose: 325 mg Folic Acid (Folic Acid -) 1 mg PO DAILY [facility] Last Admin: 09/11/16 10:15 Dose: 1 mg IV Flush (Picc Line Flush) 8 ml IVPUSH PRN PRN PRN Reason: Protocol Famotidine/Sodium Chloride (Pepcid 20 Mg Premixed Ivpb -) 50 mls @ 100 mls/hr IVPB BID [facility] Last Admin: 09/11/16 10:17 Dose: 100 mls/hr Ceftriaxone Sodium (Rocephin 2gm Ivpb (Pre-Docked)) 100 mls @ 200 mls/hr IVPB DAILY [facility] Last Admin: 09/11/16 10:17 Dose: 200 mls/hr Insulin Aspart (Novolog Vial Sliding Scale -) 1 vial SQ TIDAC [facility] PRN Reason: Protocol Last Admin: 09/11/16 11:38 Dose: 4 unit Insulin Detemir (Levemir Vial) 20 units SQ DAILY [facility] Last Admin: 09/11/16 10:16 Dose: 20 units Lactobacillus Acidophilus (Bacid -) 1 tab PO DAILY [facility] Last Admin: 09/11/16 10:16 Dose: 1 tab Methyl Salicylate (Sterling-Greer -) 1 applic TP BID [facility] Last Admin: 09/11/16 10:16 Dose: Not Given Metoprolol Tartrate (Lopressor -) 50 mg PO BID [facility] Last Admin: 09/11/16 10:14 Dose: 50 mg Mirtazapine (Remeron -) 30 mg PO HS [facility] Last Admin: 09/10/16 21:33 Dose: 30 mg Miscellaneous (Duragesic Patch Waste) 1 each TD PRN PRN PRN Reason: PAIN Oxycodone HCl (Roxicodone -) 10 mg PO Q6H PRN PRN Reason: PAIN Last Admin: 09/11/16 10:41 Dose: 10 mg Pregabalin (Lyrica -) 100 mg PO BID [facility] Last Admin: 09/11/16 10:14 Dose: 100 mg Sodium Bicarbonate (Sodium Bicarbonate -) 650 mg PO DAILY [facility] Last Admin: 09/11/16 10:15 Dose: 650 mg Trazodone HCl (Desyrel -) 300 mg PO [facility] Last Admin: 09/10/16 21:31 Dose: 300 mg Zinc Sulfate (Orazinc -) 220 mg PO DAILY [facility] Last Admin: 09/11/16 10:14 Dose: 220 mg Gen: NAD at rest Heart: RRR Lung: decreased breath sounds at the bases Abd: soft, nontender Ext: + edema, dressing intact Laboratory Results - last 24 hr 09/10/16 09/10/16 09/10/16 12:10 18:12 22:33 WBC RBC Hgb Hct MCV MCHC RDW Plt Count MPV Neutrophils % Lymphocytes % Monocytes % Eosinophils % Basophils % Sodium Potassium Chloride Carbon Dioxide Anion Gap BUN Creatinine Creat Clearance w eGFR POC Glucometer 69 175 Random Glucose Calcium Total Bilirubin AST ALT Alkaline Phosphatase Total Protein Albumin Ur Specific [place] 1.010 09/11/16 09/11/16 09/11/16 06:25 08:00 08:00 WBC 8.6 D RBC 2.91 L Hgb 7.5 L Hct 23.4 L MCV 80.4 MCHC 31.9 L RDW 26.6 H Plt Count 306 MPV 7.5 Neutrophils % Lymphocytes % Monocytes % Eosinophils % Basophils % Sodium 141 Potassium 5.0 Chloride 107 Carbon Dioxide 27 Anion Gap 7 L BUN 64 H Creatinine 3.0 H Creat Clearance w eGFR 21.38 POC Glucometer 127 Random Glucose 126 H D Calcium 8.3 L Total Bilirubin 0.3 D AST 24 D ALT 24 D Alkaline Phosphatase 184 H Total Protein 7.8 Albumin 2.1 L Ur Specific [place] 09/11/16 09/11/16 08:00 11:38 WBC 8.6 RBC 2.88 L Hgb 7.5 L Hct 23.3 L MCV 81.0 MCHC 32.2 RDW 26.2 H Plt Count 299 MPV 8.1 Neutrophils % 71.6 Lymphocytes % 12.0 D Monocytes % 9.0 Eosinophils % 6.3 H Basophils % 1.1 Sodium Potassium Chloride Carbon Dioxide Anion Gap BUN Creatinine Creat Clearance w eGFR POC Glucometer 205 Random Glucose Calcium Total Bilirubin AST ALT Alkaline Phosphatase Total Protein Albumin Ur Specific [place] ASSESSMENT AND PLAN: Syncope Anemia Left foot ulcer infection s/p debridement Gram Positive Bacteremia Sepsis Acute on Chronic Renal Failure Hyperkalemia DM (?) Nerve impingement causing symptoms - Local wound care - ABX - Pain control - glucose control - PO as tolerated - OOB to chair - PT/OT Dr Butt
--- NOTE | 2016-09-11 17:07 | PN ---
Physical Exam: SUBJECTIVE: Patient seen and examined by me at bedside. Patient was on BIPAP overnight. However, he denies any difficulty breathing. Patient also denies any fever, chills, nausea, vomiting, chest pain, palpitations, shortness of breath. OBJECTIVE: Vital Signs Period Temp Pulse Resp BP Sys/Gutierrez Pulse Ox Last 24 Hr 97.4 F-98.2 F 64-75 18-36 141-158/68-98 91-96 GENERAL: The patient is awake, alert, and fully oriented, in no acute distress. LUNGS: Rhonchi's throughout lung bases bilaterally HEART: Regular rate and rhythm, normal S1 and S2 without murmur, rub or gallop. ABDOMEN: Soft, nontender, nondistended, no guarding, no rebound tenderness EXTREMITIES: trace pitting edema in B/L LE. Left metatarsal amputation with gauze wrapped around. Wound Vac in place SKIN: Chronic maculopapular rash in the left flank and abdomen area Laboratory Results - last 24 hr 09/10/16 09/10/16 09/10/16 12:10 18:12 22:33 WBC RBC Hgb Hct MCV MCHC RDW Plt Count MPV Neutrophils % Lymphocytes % Monocytes % Eosinophils % Basophils % Sodium Potassium Chloride Carbon Dioxide Anion Gap BUN Creatinine Creat Clearance w eGFR POC Glucometer 69 175 Random Glucose Calcium Total Bilirubin AST ALT Alkaline Phosphatase Total Protein Albumin Ur Specific [place] 1.010 09/11/16 09/11/16 09/11/16 06:25 08:00 08:00 WBC 8.6 D RBC 2.91 L Hgb 7.5 L Hct 23.4 L MCV 80.4 MCHC 31.9 L RDW 26.6 H Plt Count 306 MPV 7.5 Neutrophils % Lymphocytes % Monocytes % Eosinophils % Basophils % Sodium 141 Potassium 5.0 Chloride 107 Carbon Dioxide 27 Anion Gap 7 L BUN 64 H Creatinine 3.0 H Creat Clearance w eGFR 21.38 POC Glucometer 127 Random Glucose 126 H D Calcium 8.3 L Total Bilirubin 0.3 D AST 24 D ALT 24 D Alkaline Phosphatase 184 H Total Protein 7.8 Albumin 2.1 L Ur Specific [place] 09/11/16 09/11/16 08:00 11:38 WBC 8.6 RBC 2.88 L Hgb 7.5 L Hct 23.3 L MCV 81.0 MCHC 32.2 RDW 26.2 H Plt Count 299 MPV 8.1 Neutrophils % 71.6 Lymphocytes % 12.0 D Monocytes % 9.0 Eosinophils % 6.3 H Basophils % 1.1 Sodium Potassium Chloride Carbon Dioxide Anion Gap BUN Creatinine Creat Clearance w eGFR POC Glucometer 205 Random Glucose Calcium Total Bilirubin AST ALT Alkaline Phosphatase Total Protein Albumin Ur Specific [place] Active Medications Generic Name Dose Route Start Last Admin Trade Name Freq PRN Reason Stop Dose Admin Albuterol Sulfate 1 amp 09/09/16 12:27 Ventolin 0.083% Nebulizer Soln - NEB Q4H PRN SHORT OF BREATH/WHEEZING Albuterol/Ipratropium 1 amp 09/05/16 18:00 09/11/16 11:10 Duoneb - NEB Not Given QIDR [facility] Amlodipine Besylate 10 mg 09/01/16 10:00 09/11/16 10:15 Norvasc - PO 10 mg DAILY [facility] Administration Ascorbic Acid 500 mg 09/01/16 10:00 09/11/16 10:15 Vitamin C - PO 500 mg DAILY [facility] Administration Calcium Acetate 1,334 mg 08/31/16 12:00 09/11/16 11:36 Phoslo - PO 1,334 mg TIDCM [facility] Administration Doxazosin Mesylate 4 mg 09/01/16 10:00 09/11/16 10:16 Cardura - PO 4 mg DAILY [facility] Administration Duloxetine HCl 30 mg 09/01/16 10:00 09/11/16 10:15 Cymbalta - PO 30 mg DAILY [facility] Administration Epoetin Joe 10,000 unit 09/08/16 13:15 09/11/16 13:52 Procrit - SQ 10,000 unit TUTHSA [facility] Administration Ferrous Sulfate 325 mg 09/01/16 10:00 09/11/16 10:15 Feosol - PO 325 mg DAILY [facility] Administration Folic Acid 1 mg 09/01/16 10:00 09/11/16 10:15 Folic Acid - PO 1 mg DAILY [facility] Administration IV Flush 8 ml 09/03/16 09:35 Picc Line Flush IVPUSH PRN PRN Protocol Famotidine/Sodium Chloride 50 mls @ 100 mls/hr 09/08/16 22:00 09/11/16 10:17 Pepcid 20 Mg Premixed Ivpb - IVPB 100 mls/hr BID [facility] Administration Ceftriaxone Sodium 100 mls @ 200 mls/hr 09/10/16 14:15 09/11/16 10:17 Rocephin 2gm Ivpb (Pre-Docked) IVPB 200 mls/hr DAILY [facility] Administration Insulin Aspart 1 vial 08/31/16 11:00 09/11/16 11:38 Novolog Vial Sliding Scale - SQ 4 unit TIDAC [facility] Administration Protocol Insulin Detemir 20 units 09/09/16 10:00 09/11/16 10:16 Levemir Vial SQ 20 units DAILY [facility] Administration Lactobacillus Acidophilus 1 tab 09/08/16 10:00 09/11/16 10:16 Bacid - PO 1 tab DAILY [facility] Administration Methyl Salicylate 1 applic 08/31/16 22:00 09/11/16 10:16 Sterling-Greer - TP Not Given BID [facility] Metoprolol Tartrate 50 mg 09/01/16 10:00 09/11/16 10:14 Lopressor - PO 50 mg BID [facility] Administration Mirtazapine 30 mg 08/31/16 22:00 09/10/16 21:33 Remeron - PO 30 mg HS [facility] Administration Miscellaneous 1 each 08/31/16 10:24 Duragesic Patch Waste TD PRN PRN PAIN Oxycodone HCl 10 mg 09/09/16 10:36 09/11/16 10:41 Roxicodone - PO 10 mg Q6H PRN Administration PAIN Pregabalin 100 mg 08/31/16 22:00 09/11/16 10:14 Lyrica - PO 100 mg BID [facility] Administration Sodium Bicarbonate 650 mg 09/01/16 10:00 09/11/16 10:15 Sodium Bicarbonate - PO 650 mg DAILY [facility] Administration Trazodone HCl 300 mg 08/31/16 22:00 09/10/16 21:31 Desyrel - PO 300 mg HS [facility] Administration Zinc Sulfate 220 mg 09/01/16 10:00 09/11/16 10:14 Orazinc - PO 220 mg DAILY [facility] Administration Images: Chest X-ray (09/07/2016): Cardiomegaly. Vascular congestive changes, bilateral pleural effusions, airspace opacities in bilateral lower lung zones, right greater than the left. No pneumothorax seen. ASSESSMENT/PLAN: Patient is a 60 year old male with a PMHx of DM with nephropathy and neuropathy s/p left metatarsal amputation, HTN, CKD who presented after a syncopal episode with loss of consciousness and head trauma. Patient was found to have a hemoglobin of 3.7 and WBC of 26.1. Patient admitted for further monitoring and management. Patient was transfused with a total of 11 PRBC since admission and had two debridements of the left foot. Patient then had Wound VAC placed. Patient then began having dyspnea with orthopnea and repeat chest x-ray revealed fluid overload. Patient was diuresed and has improved. Will continue to treat for osteomyelitis with IV Abx Syncope secondary to Acute on Chronic Anemia-Improving and stable -Today's hgb/hct 7.5 and 23.3 -11 PRBC's since admission -Will begin EPO 3 times weekly, as per nephrology -Ferrous 325mg daily -Folic 1mg -IV Iron 100mg once a day for 5 days -Continue to monitor daily CBC -Heme/Onco consult appreciated Sepsis Secondary to Osteomyelitis- Improved -Remains Afebrile -S/P bone biopsy debridement 08/27/16 and 08/31/16 -Tunneled cath to be placed (09/10/16) -Ceftriaxone 2gm IVPB day #2 -Will discharge with IV ceftriaxone for a total of 6 weeks of IV antibiotics. On day #22 -Continue to trend CBC and ESR Acute Hypoxic Respiratory failure- Improving -Likely secondary to HAP found on chest x-ray and congestive changes -Ceftriaxone 2gm IV daily -Lasix PRN -Strict I&O's -Pulmonology consult appreciated -Cardiology consult appreciated Acute on chronic renal failure- Stable -Creatinine stabe at 3.0 despite Lasix IV last given on -suspecting possible AIN from Zosyn due to eosinophils increased. Switched to Ceftriaxone -U/A revealed no leukocyte esterase and 2 WBC in urine, making it unlikely to have AIN -Continue with daily BMP's and monitoring -Nephrology on case HTN-Controlled -Continue Metoprolol 25mg BID -Norsvac 10mg daily -Diovan held due to FROYLAN Hyperkalemia- acute -Today 5.0 -Continue to trend -maintain low K diet Hypophosphatemia -Phoslo with meals TID IDDM II -Stable with no hypoglycemia -Levemir now only 20 units in the morning -Insulin sliding scale -BGM F/E/N -On no fluids -Electrolytes wnl -Diabetic/Sodium controlled diet Prophylaxis -SCD's for DVT Disposition -Creatinine stable. Anticipating discharge tomorrow morning. Visit type - Emergency Visit Emergency Visit: Yes ED Registration Date: 08/19/16 Care time: The patient presented to the Emergency Department on the above date and was hospitalized for further evaluation of their emergent condition. - New Patient This patient is new to me today: No - Critical Care Critical Care patient: No
--- NOTE | 2016-09-11 19:02 | PN ---
Teaching Attending Note Name of Resident: Marlena Bello ATTENDING PHYSICIAN STATEMENT I saw and evaluated the patient. I reviewed the resident's note and discussed the case with the resident. I agree with the resident's findings and plan as documented. SUBJECTIVE:currently asymptomatic. denies CP, SOB,fever, chills, cough OBJECTIVE: Last Vital Signs Temp Pulse Resp BP Pulse Ox 97.8 F 65 20 156/98 94 L 09/11/16 16:27 09/11/16 16:27 09/11/16 16:27 09/11/16 16:27 09/11/16 17:29 General NAD CV S1 S2 RRR no murmur/rub/gallop lungs mild wheezing no crackles or rales Extremiteis L foot hooked to wound vac ASSESSMENT AND PLAN: 60-year-old man with a history of HTH, type 2 DM, peripheral neuropathy, OM of left foot, left foot TMA who presented to the ER and was admitted for further evaluation of their emergent condition 1. Sepsis secondary to L foot OM, bacteremia and HCAP.- s/p bone biopsy and debridement (08/27 and 08/31) with wound vac now in place. on Ceftriaxone day 22 of abx. zosyn stopped due to AIN/eosinophilia. now improved. have R sided tunneled catheter placed. will need 6 weeks abx treatment total. ID and podiatry on board 2. Symptomatic anemia secondary to sepsis-s/p 11 units PRBCs this admission. on Venofer day 2. epogen 3x/week. hgb currently stable. no indication for transfusion 3. Hyperkalemia- s/p kayexylate. resolved. 4. Acute hypoxic respiratory failure secondary to pneumonia and acute diastolic heart failure from fluid overload- currently saturing 94% on RA. nebs prn wheezing. holding diuretics. 5. FROYLAN- medication induced vs AIN from zosyn. now improved. eosinophilia improved. will cont to trend. on sodium bicarb. nephrology on board. 6. Hyperphosphatemia- Continue PhosLo 7. DM- improved. on levemir, iss 8. d/c planning in am if kidney function remains stable
[2016-09-11] MEDS ORDERED: traZODone HCL 50 MG TABLET (FP) ONE (20:32)
[2016-09-11] MEDS ORDERED: PT OWN MED DRAWER 7, Y5N ONE (20:33)
[2016-09-11] MEDS: traZODone HCL 100 MG TABLET (FP) PO SCH (21:51)
[2016-09-11] MEDS: MIRTAZAPINE 15 MG TABLET (FP) PO SCH (21:55)
[2016-09-12] MEDS: oxyCODONE HCL 5 MG TABLET PO PRN ×2 (02:57→09:33)
[2016-09-12] MEDS: INSULIN SLIDING SCALE (NOVOLOG) 1 VIAL SQ SCH ×2 (06:53→12:08)
[2016-09-12] MEDS: ALBUTEROL SO4 2.5/IPRATROPIUM 0.5 INH SOL 3 ML VIAL.NEB. NEB SCH ×2 (07:21→12:08)
[2016-09-12 07:26] VITALS: TEMP 98.8
[2016-09-12 08:35] LABS: BASOPHIL 1.1 % (0-2.0); EOSINOPHIL 7.8 % (0-4.5); MCH 25.3 pg (25.7-33.7); MCHC 31.5 g/dl (32.0-35.9); MEAN CELL VOLUME 80.4 fl (80-96); MEAN PLT VOLUME 7.5 fl (7.5-11.1); NEUTROPHILS 62.2 % (42.8-82.8); PLATELET COUNT 312 K/MM3 (134-434); RDW 27.1 % (11.9-15.9); WHITE BLOOD COUNT 7.4 K/mm3 (4.0-10.0)
[2016-09-12 09:05] LABS: CALCIUM 8.2 mg/dL (8.5-10.1); COCKROFT - GAULT 40.82; CREATININE 2.7 mg/dL (0.7-1.3); MAGNESIUM 2.2 mg/dL (1.8-2.4); PHOSPHOROUS 4.1 mg/dL (2.5-4.9)
[2016-09-12 09:06] LABS: BILIRUBIN,TOTAL 0.4 mg/dL (0.2-1.0); TOT PROT 7.7 g/dl (6.4-8.2)
[2016-09-12] MEDS ORDERED: PT OWN MED DRAWER 7, Y5N ONE (09:13)
[2016-09-12] MEDS: CALCIUM ACETATE 667 MG CAPSULE (FP) PO SCH ×2 (09:19→12:09)
[2016-09-12] MEDS: PREGABALIN 50 MG CAPSULE PO SCH (09:20)
[2016-09-12] MEDS: INSULIN DETEMIR 100 UNITS/ML MDV SQ SCH (09:20)
[2016-09-12] MEDS: FERROUS SO4 325 MG TABLET (FP) PO SCH (09:37)
[2016-09-12] MEDS: LACTOBACILLUS ACIDOPHILUS 1 EACH TAB (FP) PO SCH (09:38)
[2016-09-12] MEDS: SODIUM BICARBONATE 650 MG TABLET PO SCH (09:38)
[2016-09-12] MEDS: METOPROLOL TARTRATE 25 MG TABLET (FP) PO SCH (09:38)
[2016-09-12] MEDS: ASCORBIC ACID 500 MG TABLET (FP) PO SCH (09:38)
[2016-09-12] MEDS: DULoxetine HCL 30 MG CAPSULE.DR (FP) PO SCH (09:39)
[2016-09-12] MEDS: ZINC SULFATE 220 MG CAPSULE (FP) PO SCH (09:39)
[2016-09-12] MEDS: FOLIC ACID 1 MG TABLET (FP) PO SCH (09:39)
[2016-09-12] MEDS: DOXAZOSIN MESYLATE 4 MG TABLET PO SCH (09:40)
[2016-09-12] MEDS: CEFTRIAXONE 100 ML IVPB SCH (09:40)
[2016-09-12] MEDS: amLODIPine BESYLATE 10 MG TABLET (FP) PO SCH (09:43)
[2016-09-12] MEDS ORDERED: IRON SUCROSE INJECTION 100 MG in SODIUM CHLORIDE 95 ML IVPB ONE (10:01)
--- NOTE | 2016-09-12 10:57 | PN ---
Progress Note (short form) - Note Progress Note: awake and alert, feels better more energy today Vital Signs Period Temp Pulse Resp BP Sys/Gutierrez Pulse Ox Last 24 Hr 97.6 F-98.8 F 65-74 20-20 144-156/74-98 94-94 cor-rrr lungs scattered rhonchi abd soft,nt ext +vac CBC, BMP 09/12/16 08:05 09/12/16 08:05 a/p Osteomyelitis s/p bone biopsy- group G strep anemia-refractory feli/ckd- ?interstitial nephritis- f/u urine eosinophils- creatinine improving diabetes s/p vanco 2 weeks for staph epi bacteremia plan ceftriaxone 2 grams daily for 6 weeks total for osteomyelitis- currently day #223 f/u esr/crp as outpt should f/u in our office with Dr Jama/Bruce in 2 weeks to help determine total duration iv antibiotics and if there is need for f/u po antibiotics please call back if needed
--- NOTE | 2016-09-12 11:03 | PN ---
Progress Note (short form) - Note Progress Note: Renal Follow up for FROYLAN/CKD with Hyperkalemia Pt seen and examined at the bedside feels better today denies any sob, chest pain good urine output Vital Signs Temperature 98.8 F 09/12/16 06:00 Pulse Rate 74 09/12/16 06:00 Respiratory Rate 20 09/12/16 06:00 Blood Pressure 144/74 09/12/16 06:00 O2 Sat by Pulse Oximetry (%) 94 L 09/11/16 21:00 Intake & Output 09/09/16 09/10/16 09/11/16 09/12/16 23:59 23:59 23:59 23:59 Intake Total 660 1350 1790 120 Output Total 1200 3050 1500 1200 Balance -540 -1700 290 -1080 Weight 224 lb 221 lb 8 oz Gen: NAD on NC HEENT: No JVD CVS: RRR, No M/R Lungs: Dec BS throughout the lung [place] , + wheeze Abd: NT/ND Ext: trace to 1+ edema in LLE CBC, BMP 09/12/16 08:05 09/12/16 08:05 Laboratory Tests 09/12/16 08:05 Calcium 8.2 L Phosphorus 4.1 Magnesium 2.2 Albumin 2.0 L Current Medications Albuterol Sulfate (Ventolin 0.083% Nebulizer Soln -) 1 amp NEB Q4H PRN PRN Reason: SHORT OF BREATH/WHEEZING Albuterol/Ipratropium (Duoneb -) 1 amp NEB QIDR [facility] Last Admin: 09/12/16 07:21 Dose: 1 amp Amlodipine Besylate (Norvasc -) 10 mg PO DAILY [facility] Last Admin: 09/12/16 09:43 Dose: 10 mg Ascorbic Acid (Vitamin C -) 500 mg PO DAILY [facility] Last Admin: 09/12/16 09:38 Dose: 500 mg Calcium Acetate (Phoslo -) 1,334 mg PO TIDCM [facility] Last Admin: 09/12/16 09:19 Dose: 1,334 mg Doxazosin Mesylate (Cardura -) 4 mg PO DAILY [facility] Last Admin: 09/12/16 09:40 Dose: 4 mg Duloxetine HCl (Cymbalta -) 30 mg PO DAILY [facility] Last Admin: 09/12/16 09:39 Dose: 30 mg Epoetin Joe (Procrit -) 10,000 unit SQ TUTHSA [facility] Last Admin: 09/11/16 13:52 Dose: 10,000 unit Ferrous Sulfate (Feosol -) 325 mg PO DAILY [facility] Last Admin: 09/12/16 09:37 Dose: 325 mg Folic Acid (Folic Acid -) 1 mg PO DAILY [facility] Last Admin: 09/12/16 09:39 Dose: 1 mg IV Flush (Picc Line Flush) 8 ml IVPUSH PRN PRN PRN Reason: Protocol Ceftriaxone Sodium (Rocephin 2gm Ivpb (Pre-Docked)) 100 mls @ 200 mls/hr IVPB DAILY [facility] Last Admin: 09/12/16 09:40 Dose: 200 mls/hr Insulin Aspart (Novolog Vial Sliding Scale -) 1 vial SQ TIDAC IGGY PRN Reason: Protocol Last Admin: 09/12/16 06:53 Dose: Not Given Insulin Detemir (Levemir Vial) 20 units SQ DAILY [facility] Last Admin: 09/12/16 09:20 Dose: 20 units Lactobacillus Acidophilus (Bacid -) 1 tab PO DAILY [facility] Last Admin: 09/12/16 09:38 Dose: 1 tab Methyl Salicylate (Sterling-Greer -) 1 applic TP BID [facility] Last Admin: 09/11/16 21:58 Dose: Not Given Metoprolol Tartrate (Lopressor -) 50 mg PO BID [facility] Last Admin: 09/12/16 09:38 Dose: 50 mg Mirtazapine (Remeron -) 30 mg PO HS [facility] Last Admin: 09/11/16 21:55 Dose: 30 mg Miscellaneous (Duragesic Patch Waste) 1 each TD PRN PRN PRN Reason: PAIN Pregabalin (Lyrica -) 100 mg PO BID [facility] Last Admin: 09/12/16 09:20 Dose: 100 mg Sodium Bicarbonate (Sodium Bicarbonate -) 650 mg PO DAILY [facility] Last Admin: 09/12/16 09:38 Dose: 650 mg Trazodone HCl (Desyrel -) 300 mg PO HS [facility] Last Admin: 09/11/16 21:51 Dose: 300 mg Zinc Sulfate (Orazinc -) 220 mg PO DAILY [facility] Last Admin: 09/12/16 09:39 Dose: 220 mg A/P 60 year old Gentleman with PMhx of CKD (baseline unclear), Hypertension, IDDM, PVD who presented s/p syncopal episode and found to have acute Anemia with Hgb of 3.7 and BUN/Cr of 41/2.7 and K of 6.8. #FROYLAN on CKD stage 4 with subnephrotoic proteinuria Renal function with improvement pt is off Zosyn can resume oral lasix for fluid management no YASMIN/ARB for now given low eGFR to follow up in the office in 2-3 weeks #CHF/Fluid overload clinically stable to be discharged on oral lasix #Acute on Chronic anemia Epogen 87444 units SC 3x weekly getting Carly #Hyperphosphatemia continue Phoslo with meals Miguel Jansen DO
--- NOTE | 2016-09-12 11:08 | PN ---
Teaching Attending Note Name of Resident: Marlena Bello ATTENDING PHYSICIAN STATEMENT I saw and evaluated the patient. I reviewed the resident's note and discussed the case with the resident. I agree with the resident's findings and plan as documented. SUBJECTIVE:asymptomatic. denies CP, SOB, fever, chills, cough, N/V/C/D OBJECTIVE: Last Vital Signs Temp Pulse Resp BP Pulse Ox 98.8 F 74 20 144/74 94 L 09/12/16 06:00 09/12/16 06:00 09/12/16 06:00 09/12/16 06:00 09/11/16 21:00 General NAD CV S1 S2 RRR no murmur/rub/gallop lungs CTA B/L no crackles/wheezing/ rales Extremiteis L foot hooked to wound vac ASSESSMENT AND PLAN: 60-year-old man with a history of HTH, type 2 DM, peripheral neuropathy, OM of left foot, left foot TMA who presented to the ER and was admitted for further evaluation of their emergent condition 1. Sepsis secondary to L foot OM, bacteremia and HCAP.- s/p bone biopsy and debridement (08/27 and 08/31) with wound vac now in place. on Ceftriaxone day 23 of abx. zosyn stopped due to AIN/eosinophilia. now improved. have R sided tunneled catheter placed. will need 6 weeks abx treatment total. ID and podiatry on board. check ESR/CRP weekly and follow up with ID in 2 weeks 2. Symptomatic anemia secondary to sepsis-s/p 11 units PRBCs this admission. on Venofer day 3. epogen 3x/week. hgb currently stable. no indication for transfusion. cont iron supplementation on discharge 3. Hyperkalemia- s/p kayexylate. resolved. 4. Acute hypoxic respiratory failure secondary to pneumonia and acute diastolic heart failure from fluid overload- currently saturing 94% on RA. nebs prn wheezing. will re-start lasix on discharge 5. FROYLAN- medication induced vs AIN from zosyn. now improved. on sodium bicarb and phoslo. cont to improve. will re-start lasix on discharge. hold acei at this time and can be re-started once kidney function returns to normal. reduce sodium bicarb to 325mg daily on discharge. will need to f/u with renal in 2 weeks 6. Hyperphosphatemia- Continue PhosLo 7. DM- improved. on levemir, iss 8. d/c to [facility] today
[2016-09-12] MEDS: METHYL SALICYLATE/MENTHOL OINT 30 GM TUBE TP SCH (12:09)
[2016-09-12] MEDS: FAMOTIDINE 20 MG/50 ML IVPB 50 ML IVPB SCH (12:51)
[2016-09-12 16:14] VITALS: BP 128/86; PULSE 68
[2016-09-12 16:48] LABS: PLATELET ESTIMATE ADEQUATE (NORMAL)
[2016-09-12 16:49] LABS: ANISOCYTOSIS 2+; HYPOCHROMIA 1+; MICROCYTOSIS 1+; POLYCHROMASIA 1+
--- NOTE | 2016-09-12 17:36 | DS ---
Physical Exam: SUBJECTIVE: Patient seen and examined by me at bedside. No overnight events noted. Patient reports feeling better and offers no complaints. Patient denies fever, chills, nausea, vomiting, abdominal pain, chest pain, palpitations, shortness of breath. OBJECTIVE: Vital Signs Period Temp Pulse Resp BP Sys/Gutierrez Pulse Ox Last 24 Hr 97.6 F-98.8 F 68-80 20-20 128-156/74-100 94-94 PHYSICAL EXAM GENERAL: The patient is awake, alert, and fully oriented, in no acute distress. LUNGS: Rhonchi's throughout lung bases bilaterally HEART: Regular rate and rhythm, normal S1 and S2 without murmur, rub or gallop. ABDOMEN: Soft, nontender, nondistended, no guarding, no rebound tenderness EXTREMITIES: trace pitting edema in B/L LE. Left metatarsal amputation with gauze wrapped around. Wound Vac in place LABS Laboratory Results - last 24 hr 09/11/16 09/11/16 09/12/16 17:28 22:00 06:53 WBC RBC Hgb Hct MCV MCHC RDW Plt Count MPV Neutrophils % Lymphocytes % Monocytes % Eosinophils % Basophils % Platelet Estimate Platelet Comment Polychromasia Hypochromic-Microcytic Anisocytosis Microcytosis Sodium Potassium Chloride Carbon Dioxide Anion Gap BUN Creatinine Creat Clearance w eGFR POC Glucometer 106 127 122 Random Glucose Calcium Phosphorus Magnesium Total Bilirubin AST ALT Alkaline Phosphatase Total Protein Albumin 09/12/16 09/12/16 09/12/16 08:05 08:05 11:48 WBC 7.4 RBC 2.95 L Hgb 7.5 L Hct 23.7 L MCV 80.4 MCHC 31.5 L RDW 27.1 H Plt Count 312 MPV 7.5 Neutrophils % 62.2 Lymphocytes % 19.3 D Monocytes % 9.6 Eosinophils % 7.8 H Basophils % 1.1 Platelet Estimate Adequate Platelet Comment No clumping noted Polychromasia 1+ Hypochromic-Microcytic 1+ Anisocytosis 2+ Microcytosis 1+ Sodium 143 Potassium 4.9 Chloride 108 H Carbon Dioxide 28 Anion Gap 7 L BUN 59 H Creatinine 2.7 H Creat Clearance w eGFR 24.14 POC Glucometer 255 Random Glucose 113 H Calcium 8.2 L Phosphorus 4.1 Magnesium 2.2 Total Bilirubin 0.4 D AST 16 D ALT 23 Alkaline Phosphatase 171 H Total Protein 7.7 Albumin 2.0 L HOSPITAL COURSE: Patient is a 61 year old male with a significant PMHx of DM II with nephropathy and neuropathy s/p left metatarsal amputation, PVD, HTN and CKD, COPD, Anxiety/ Depression who presented s/p syncopal episode with head trauma at the half-way home. Patient was found to have severe asymptomatic anemia with a hemoglobin level of 3.7. Patient was also found to have leukocytosis with WBC 26.1 and findings of a new ulcer on his left lower extremity. Foot x-ray revealed osteomyelitis of the left lower extremity. Throughout the hospital course patient was transfused 11 PRBC's and two debridements were done with wound vac placement and IV antibiotics were started. During the hospitalization patient acquired acute hypoxic respiratory failure secondary to pulmonary edema from blood transfusions and post obstructive pneumonia. Patient was being diuresed with Lasix IV and was switched from IV ceftriaxone to IV Zosyn to cover osteomyelitis and hospital acquired pneumonia. Patients acute hypoxic respiratory failure resolved with Lasix IV and was then stopped. Patients creatinine continued to rise despite discontinuing Lasix IV and Acute Interstitial nephritis was suspected due to increasing eosinophils possibly secondary to Zosyn use. Patient was then switched back to IV ceftriaxone and kidney function was stable. Patient clinically improved and tunneled catheter was placed for continuation of IV antibiotics. Patient was discharged with IV Ceftriaxone for another 19 days for a total of 6 weeks for the treatment of osteomyelitis. Patient was also advised to continue taking Iron supplementation as he has chronic anemia, as per hematology and to follow up with Podiatry for management of osteomyelitis of the lower extremity. Date of Discharge: 09/12/16 Minutes to complete discharge: 60 Discharge Summary Reason For Visit: FALL Condition: Stable - Instructions Diet, Activity, Other Instructions: -You may resume your regular diet -Your medications will be adjusted and given to you at [facility] -You have Anemia and will need to continue taking your iron pills. If not, you have the risk of passing out again. 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 -You are being sent out with a catheter on your right chest and will need to continue taking Antibiotics through there for another three weeks -If you continue to have shortness breath, continue your breathing treatments -Make sure your foot dressing is clean, dry, and changed three times a week. -You must follow up with your kidney doctor next week to check your creatinine and possibly resuming your other blood pressure medications -You must follow up with your foot doctor this week -You must follow up with your primary care doctor this week -You will need to follow up with your Infectious Disease Doctor to follow up on your Antibiotics and repeat lab work for your ESR/CRP every week. -If you begin to have severe shortness of breath with no help from your breathing treatments, return to the emergency department Referrals: Dr Aroldo Galvan [Other] - 09/17/16 1:00 pm [facility] [Outside] Sarah Gutierrez MD [Staff Physician] - Nicki Juarez MD [Staff Physician] - Miguel Jansen MD [Staff Physician] - Aroldo Galvan MD [Staff Physician] - Tawnya Denise MD [Primary Care Provider] - Disposition: [facility] - Home Medications Comprehensive Discharge Medication List: Ambulatory Orders Amlodipine Besylate [Norvasc -] 10 mg PO DAILY 11/07/14 Ascorbate Calcium [Vitamin C] 500 mg PO DAILY 11/07/14 Duloxetine HCl 30 mg PO DAILY 11/07/14 Ferrous Sulfate [Feosol] 325 mg PO DAILY 11/07/14 Folic Acid - 1 mg PO DAILY 11/07/14 Trazodone HCl 300 mg PO HS 11/07/14 Zinc Sulfate 220 mg PO DAILY 11/07/14 Doxazosin Mesylate [Cardura -] 4 mg PO DAILY #30 tablet 11/24/14 Aspirin [ASA -] 81 mg PO DAILY 03/08/16 Oxycodone HCl/Acetaminophen [Percocet 5-325 mg Tablet] 1 tab PO QID #120 tablet MDD 4 08/01/16 Albuterol Sulfate Inhaler - [Ventolin HFA Inhaler -] 2 inh PO Q4H PRN 08/19/16 Mirtazapine [Remeron -] 30 mg PO HS 08/19/16 Pregabalin [Lyrica -] 100 mg PO BID MDD 2 08/19/16 Albuterol 0.083% Nebulizer Coretta [Ventolin 0.083% Nebulizer Soln -] 1 amp NEB Q4H PRN #0 amp 09/12/16 Albuterol 2.5/Ipratropium 0.5 [Duoneb -] 1 amp NEB QIDR amp 09/12/16 Calcium Acetate [Phoslo -] 1,334 mg PO TIDCM #180 capsule 09/12/16 Ceftriaxone [Rocephin 2Gm Ivpb (Pre-Docked)] 100 ml IVPB DAILY #19 bag 09/12/16 Epoetin Joe [Procrit -] 10,000 unit SQ TUTHSA #12 ml 09/12/16 Furosemide [Lasix -] 20 mg PO DAILY #30 tablet 09/12/16 Insulin (Levemir) [Levemir Flexpen -] 20 units SQ DAILY #1 vial 09/12/16 Insulin Sliding Scale [Novolog Vial Sliding Scale -] 1 vial SQ TIDAC units Metoprolol Tartrate [Lopressor -] 50 mg PO BID tablet 09/12/16 Picc Line Flush [Picc Line Flush -] 8 ml IVPUSH PRN PRN #0 ml 09/12/16 Sodium Bicarbonate - 325 mg PO DAILY tablet 09/12/16 This patient is new to me today: No Emergency Visit: Yes ED Registration Date: 08/19/16 Care time: The patient presented to the Emergency Department on the above date and was hospitalized for further evaluation of their emergent condition. Critical Care patient: No - Discharge Referral Referred to [facility] Med P.C.: No
== END 2016-09-12 15:35 | DRG 622 ==
LOC: JER 18:41 → JERBED 23:36 → JICU 08-20 16:38 → J4S 08-25 19:21 → J5S 09-07 01:18
PROVIDERS: ADMIT Internal Medicine; ATTEND Internal Medicine
PROC: 30233N1 Transfusion of Nonautologous Red Blood Cells into Peripheral Vein, Percutaneous Approach (ICD-10-PCS; 2016-08-20)
PROC: 0QBP0ZX Excision of Left Metatarsal, Open Approach, Diagnostic (ICD-10-PCS; 2016-08-27)
PROC: 0QBP0ZZ Excision of Left Metatarsal, Open Approach (ICD-10-PCS; 2016-08-27)
PROC: 0JBR0ZZ Excision of Left Foot Subcutaneous Tissue and Fascia, Open Approach (ICD-10-PCS; principal; 2016-08-31 08:00)
PROC: 05HM33Z Insertion of Infusion Device into Right Internal Jugular Vein, Percutaneous Approach (ICD-10-PCS; 2016-09-10)
PROC: B513YZA Fluoroscopy of Right Jugular Veins using Other Contrast, Guidance (ICD-10-PCS; 2016-09-10)
DX: E11.69 Type 2 diabetes mellitus with other specified complication (principal); J96.01 Acute respiratory failure with hypoxia; A41.9 Sepsis, unspecified organism; J18.9 Pneumonia, unspecified organism; I50.33 Acute on chronic diastolic (congestive) heart failure; D68.9 Coagulation defect, unspecified; L02.612 Cutaneous abscess of left foot; E87.1 Hypo-osmolality and hyponatremia; M86.172 Other acute osteomyelitis, left ankle and foot; I13.0 Hypertensive heart and chronic kidney disease with heart failure and stage 1 through stage 4 chronic kidney disease, or unspecified chronic kidney disease; E11.621 Type 2 diabetes mellitus with foot ulcer; D64.9 Anemia, unspecified; N17.9 Acute kidney failure, unspecified; R55 Syncope and collapse; E87.6 Hypokalemia; E83.39 Other disorders of phosphorus metabolism; E87.5 Hyperkalemia; E11.40 Type 2 diabetes mellitus with diabetic neuropathy, unspecified; E11.21 Type 2 diabetes mellitus with diabetic nephropathy; Z79.4 Long term (current) use of insulin; N10 Acute pyelonephritis; D63.8 Anemia in other chronic diseases classified elsewhere; E87.70 Fluid overload, unspecified; E11.22 Type 2 diabetes mellitus with diabetic chronic kidney disease; N18.4 Chronic kidney disease, stage 4 (severe); F32.9 Major depressive disorder, single episode, unspecified; D72.829 Elevated white blood cell count, unspecified; K21.9 Gastro-esophageal reflux disease without esophagitis; R19.7 Diarrhea, unspecified; H53.149 Visual discomfort, unspecified; E83.52 Hypercalcemia; E86.0 Dehydration
CPT/HCPCS: 36415; 36430; 36558; 70450-TC; 70480-TC; 70486-TC; 71010-TC; 72125-TC; 72141-TC; 73630-TC-LT; 73630-TC-RT; 73718-TC; 76775-TC; 76856-TC; 77001-TC; 80048; 80053; 80307; 81003; 81015; 82272; 82550; 82570; 82607; 82728; 82746; 82784; 82947; 83010; 83021; 83540; 83550; 83605; 83615; 83735; 83880; 83883; 83970; 84100; 84132; 84155; 84156; 84165; 84439; 84443; 84466; 84484; 84540; 85025; 85027; 85044; 85384; 85610; 85651; 85660; 85730; 86140; 86334; 86431; 86850; 86880; 86900; 86901; 86922; 87040; 87070; 87077; 87086; 87186; 87205; 87389; 88304-TC; 88311-TC; 93005; 93010; 93306-TC; 93970-TC; 94010; 94640; 94660; 94760; 97161-GP; 99285-25; C1751; G0480; J0885; J1756; P9038; P9058

== ENCOUNTER 2016-09-26 19:47 | Inpatient (IN) | payer OTHER ==
[2016-09-26] MEDS ORDERED: DEXTROSE 50%-WATER - 25 GM/50 ML VIAL IVPUSH ONE ×3 (19:53→23:03)
[2016-09-26] MEDS ORDERED: DEXTROSE 50%-WATER 50 ML DISP.SYRIN ONE ×2 (19:53→22:24)
--- NOTE | 2016-09-26 20:11 | PDOC ---
History of Present Illness - General History Source: Patient Exam Limitations: No Limitations - History of Present Illness Initial Comments: 09/26/16 20:26 Patient is a 61 year old male with a significant past medical history of DM Type II, Hypertension, anemia, Peripheral Disease, Osteomyelitis (08/2014), Depression, GERD who presents to the ED with AMS. As per NH patient was last seen at baseline approximately at 5 PM, 3 hours before presenting to the ED. Patient was found hypoxic and lethargic, with BG of 70 and Hbg of 7.1. Patient presents to the ED nonverbal, and initially found to have a BG of 46 while in the ED. After 2 doses of 50 mL dextrose patient is alert and talking. Patient states that he was given insulin this morning but he did not eat anything yesterday. Surgical history: Left Transmetatarsal amputation 5 digits (2013), right great toe amputation. PMD: Dr. Bonilla SH: [facility] <Marilin Gilliland - Last Filed: 09/27/16 00:03> <Mara Rodas - Last Filed: 09/27/16 01:07> - General Chief Complaint: Altered Mental Status Stated Complaint: Altered Mental Status Time Seen by Provider: 09/26/16 19:53 Past History <Marilin Gilliland - Last Filed: 09/27/16 00:03> - Past Medical History Anemia: No Asthma: No Cancer: No Cardiac Disorders: No CVA: No COPD: Yes CHF: No Dementia: No Diabetes: Yes (on insulin, with neuropathy , diabetic foot ulcer) GI Disorders: No Disorders: No HTN: Yes Hypercholesterolemia: No Liver Disease: No Suicide Attempt (Hx): No Seizures: No Thyroid Disease: No Lung CA: Yes (depression) - Surgical History Abdominal Surgery: Yes (HERNIA) Appendectomy: No Cardiac Surgery: No Cholecystectomy: No Lung Surgery: No Neurologic Surgery: No Orthopedic Surgery: Yes (transmetatarsal amputation left foot, rt gr toe amputation) - Psycho/Social/Smoking Cessation Hx Anxiety: Yes (PTSD since 01/07) Suicidal Ideation: No Smoking Status: No Smoking History: Never smoked Have you smoked in the past 12 months: No Number of Cigarettes Smoked Daily: 0 Cigars Per Day: 1 'Breaking Loose' booklet given: 03/08/16 Hx Alcohol Use: No Drug/Substance Use Hx: No Substance Use Type: Alcohol, Marijuana Hx Substance Use Treatment: No <Mara Rodas - Last Filed: 09/27/16 01:07> - Past Medical History Allergies/Adverse Reactions: Allergies Allergy/AdvReac Type Severity Reaction Status Date / Time shellfish derived Allergy Severe "HIVES" Verified 09/26/16 20:16 No Known Drug Allergies Allergy Verified 09/26/16 20:16 Home Medications: Ambulatory Orders Amlodipine Besylate [Norvasc -] 10 mg PO DAILY 11/07/14 Ascorbate Calcium [Vitamin C] 500 mg PO DAILY 11/07/14 Duloxetine HCl 30 mg PO DAILY 11/07/14 Ferrous Sulfate [Feosol] 325 mg PO DAILY 11/07/14 Folic Acid - 1 mg PO DAILY 11/07/14 Trazodone HCl 300 mg PO HS 11/07/14 Zinc Sulfate 220 mg PO DAILY 11/07/14 Doxazosin Mesylate [Cardura -] 4 mg PO DAILY #30 tablet 11/24/14 Aspirin [ASA -] 81 mg PO DAILY 03/08/16 Oxycodone HCl/Acetaminophen [Percocet 5-325 mg Tablet] 1 tab PO QID #120 tablet MDD 4 08/01/16 Albuterol Sulfate Inhaler - [Ventolin HFA Inhaler -] 2 inh PO Q4H PRN 08/19/16 Mirtazapine [Remeron -] 30 mg PO HS 08/19/16 Pregabalin [Lyrica -] 100 mg PO BID MDD 2 08/19/16 Albuterol 0.083% Nebulizer Coretta [Ventolin 0.083% Nebulizer Soln -] 1 amp NEB Q4H PRN #0 amp 09/12/16 Albuterol 2.5/Ipratropium 0.5 [Duoneb -] 1 amp NEB QIDR amp 09/12/16 Calcium Acetate [Phoslo -] 1,334 mg PO TIDCM #180 capsule 09/12/16 Ceftriaxone [Rocephin 2Gm Ivpb (Pre-Docked)] 100 ml IVPB DAILY #19 bag 09/12/16 Epoetin Joe [Procrit -] 10,000 unit SQ TUTHSA #12 ml 09/12/16 Furosemide [Lasix -] 20 mg PO DAILY #30 tablet 09/12/16 Insulin (Levemir) [Levemir Flexpen -] 20 units SQ DAILY #1 vial 09/12/16 Insulin Sliding Scale [Novolog Vial Sliding Scale -] 1 vial SQ TIDAC units Metoprolol Tartrate [Lopressor -] 50 mg PO BID tablet 09/12/16 Picc Line Flush [Picc Line Flush -] 8 ml IVPUSH PRN PRN #0 ml 09/12/16 Sodium Bicarbonate - 325 mg PO DAILY tablet 09/12/16 Review of Systems - Review of Systems Able to Perform ROS?: No Comments:: 09/26/16 20:27 Unable to obtain due to mental status. <Marilin Gilliland - Last Filed: 09/27/16 00:03> *Physical Exam - Vital Signs Last Vital Signs Temp Pulse Resp BP Pulse Ox 95.0 F L 59 L 10 L 171/89 91 L 09/26/16 19:50 09/26/16 19:50 09/26/16 19:50 09/26/16 19:50 09/26/16 19:50 - Physical Exam Comments: 09/26/16 20:28 GENERAL: (+)Initially upon arrival found to be lethargic diaphoretic. HEAD: No signs of trauma EYES: PERRLA, EOMI, sclera anicteric, conjunctiva clear ENT: Auricles normal inspection, nares patent, Moist mucosa NECK: Normal ROM, supple, no lymphadenopathy, JVD, or masses LUNGS: (+)Rhonchirus with crackles bilateral. Breath sounds equal. No wheezes. HEART: Regular rate and rhythm, normal S1 and S2, no murmurs, rubs or gallops ABDOMEN: Soft, nontender, normoactive bowel sounds. No guarding, no rebound. No masses EXTREMITIES: (+)Limp, cold. Normal range of motion, no edema. No clubbing or cyanosis. No cords, erythema, or tenderness NEUROLOGICAL: (+)Moaning speech unintelligible SKIN: (+)Skin wound vac in place over chronic wound. Warm, Dry, normal turgor. <Marilin Gilliland - Last Filed: 09/27/16 00:03> ED Treatment Course - LABORATORY CBC & Chemistry Diagram: 09/26/16 20:00 09/26/16 21:10 - ADDITIONAL ORDERS Additional order review: Laboratory Results 09/26/16 19:52 POC Glucometer < 50 09/26/16 09/26/16 20:00 19:52 RBC 3.48 L MCV 82.1 MCHC 31.2 L RDW 28.5 H MPV 8.3 D Neutrophils % 74.8 D Lymphocytes % 14.1 D Monocytes % 6.5 Eosinophils % 3.8 Basophils % 0.8 POC Glucometer < 50 - Medications Given in the ED: ED Medications Discontinued Medications Generic Name Dose Route Start Last Admin Trade Name Freq PRN Reason Stop Dose Admin Dextrose 50 ml 09/26/16 19:53 09/26/16 19:59 D50w (Vial) - IVPUSH 09/26/16 19:54 50 ml NOW ONE Administration Dextrose 50 ml 09/26/16 20:16 09/26/16 20:23 D50w (Vial) - IVPUSH 09/26/16 20:17 50 ml NOW ONE Administration <Marilin Gilliland - Last Filed: 09/27/16 00:03> - LABORATORY CBC & Chemistry Diagram: 09/26/16 20:00 09/27/16 00:03 - RADIOLOGY Radiology Studies Ordered: Category Date Time Status CHEST X-RAY PORTABLE* [RAD] Stat Radiology 09/26/16 19:55 Ordered - Medications Given in the ED: ED Medications Discontinued Medications Generic Name Dose Route Start Last Admin Trade Name Freq PRN Reason Stop Dose Admin Dextrose 50 ml 09/26/16 19:53 09/26/16 19:59 D50w (Vial) - IVPUSH 09/26/16 19:54 50 ml NOW ONE Administration <Mara Rodas - Last Filed: 09/27/16 01:07> Medical Decision Making - Medical Decision Making 09/27/16 00:03 A call was placed to Dr. Bhakta at his service. Awaiting a call back. <Marilin Gilliland - Last Filed: 09/27/16 00:03> - Medical Decision Making 09/26/16 20:09 61 y o M h/o HTN, DM, osteomyletitis, anemia recently admitted from 08/19-09/12 with osteomyletitis, here from group home for lethargy, AMS/. last normal per EMS was at 3 hours ago, last sugar was checked at 5pm. on arrival to ED, pt nonverbal moaning and diaphoretic, not moving upper ext. glucose was found to be 42, given dextrose, then patient awoke, moving all extremities, alert and oriented x 2. 09/26/16 20:18 on physical exam, hypoxic 90%pt with moveing all four extremities, speech clear , breath sounds bilateral rhonchorous with crackles, heart RRR no m/r/g/. abd soft NT ND. wound vac in place left leg differential: sepsis , pneumonia, hypoglycemic siezure and aspiration, chf, renal failure. overmedication, pt did not eat. mi, plan ekg labs cxr, oxygen, will monitor blood sugars. roryley admit. 09/26/16 21:03 review pt last discharge summary, pt has h/o severe anemia hgb 3 on last admission, recieved 11 PRBC leading to pulmonary edema, requiring lasix, and subsequent increasing renal failure. differential including worsening renal failure, anemia, pulm edema. will eval cxr. pt on bipap at night 50 % fio2 <Mara Rodas - Last Filed: 09/27/16 01:07> *DC/Admit/Observation/Transfer - Attestations Scribe Attestion: 09/26/16 20:33 Documentation prepared by CASEY Redding, acting as medical planner for Mara Rodas MD. <Marilin Gilliland - Last Filed: 09/27/16 00:03> - Discharge Dispostion Admit: Yes <Mara Rodas - Last Filed: 09/27/16 01:07> Diagnosis at time of Disposition: Pneumonia, Acute hyperkalemia, Insomnia, Hypoglycemia - Discharge Dispostion Condition at time of disposition: Critical - Referrals Referrals: Brian Rojo MD [Primary Care Provider] -
[2016-09-26 20:16] LABS: BASOPHIL 0.8 % (0-2.0); EOSINOPHIL 3.8 % (0-4.5); MCH 25.6 pg (25.7-33.7); MCHC 31.2 g/dl (32.0-35.9); MEAN CELL VOLUME 82.1 fl (80-96); MEAN PLT VOLUME 8.3 fl (7.5-11.1); NEUTROPHILS 74.8 % (42.8-82.8); PLATELET COUNT 338 K/MM3 (134-434); RDW 28.5 % (11.9-15.9); WHITE BLOOD COUNT 5.6 K/mm3 (4.0-10.0)
[2016-09-26 20:36] LABS: ALBUMIN 2.7 g/dl (3.4-5.0); BILIRUBIN,TOTAL 0.3 mg/dL (0.2-1.0); CALCIUM 8.5 mg/dL (8.5-10.1); COCKROFT - GAULT 35.86; CREATININE 2.9 mg/dL (0.7-1.3)
[2016-09-26] MEDS ORDERED: ALBUTEROL SO4 2.5/IPRATROPIUM 0.5 INH SOL 3 ML VIAL.NEB. NEB ONE (20:42)
[2016-09-26] MEDS ORDERED: ALBUTEROL SO4 0.083% IH SOL 2.5 MG/3 ML VIAL.NEB. NEB ONE (20:43)
[2016-09-26] MEDS ORDERED: CALCIUM GLUCONATE 10% - 1,000 MG/10 ML VIAL IVPUSH ONE (21:06)
[2016-09-26] MEDS ORDERED: SODIUM BICARBONATE 8.4% 50 MEQ/50 ML DISP.SYRIN IVPUSH ONE (21:07)
[2016-09-26 21:08] LABS: TROPONIN I < 0.02 ng/ml (0.00-0.05)
[2016-09-26] MEDS ORDERED: VANCOMYCIN 1 GRAM (PRE-DOCKED) 1,000 MG/250 ML BAG IVPB ONE (21:14)
[2016-09-26] MEDS ORDERED: PIPERACILLIN/TAZOB 3.375 GM/50 ML PRE-DOCKED IV ONE (21:15)
[2016-09-26] MEDS ORDERED: SODIUM BICARBONATE 8.4% - 50 ML ONE (21:26)
[2016-09-26] MEDS ORDERED: PIPERACILLIN/TAZOB 3.375 GM 50 ML IVPB ONE (21:26)
[2016-09-26] MEDS ORDERED: CALCIUM GLUCONATE 10% - 1,000 MG/10 ML VIAL ONE (21:26)
[2016-09-26] MEDS ORDERED: VANCOMYCIN 1 GRAM (PRE-DOCKED) 250 ML IVPB ONE (21:26)
[2016-09-26 21:57] LABS: CALCIUM 8.3 mg/dL (8.5-10.1); COCKROFT - GAULT 35.86; CREATININE 2.9 mg/dL (0.7-1.3)
[2016-09-26 21:59] LABS: ANISOCYTOSIS 3+; PLATELET ESTIMATE ADEQUATE (NORMAL); POLYCHROMASIA 1+
[2016-09-26] MEDS ORDERED: INSULIN REGULAR HUMAN 100 UNITS/ML *VIAL ONE (22:25)
[2016-09-26] MEDS ORDERED: INSULIN REGULAR HUMAN 100 UNITS/ML *VIAL IVPUSH ONE (23:02)
[2016-09-27] MEDS ORDERED: SODIUM POLYSTYRENE SULFONATE 15 GM/60 ML BOTTLE PO ONE ×2 (00:09→18:53)
[2016-09-27] MEDS ORDERED: SODIUM POLYSTYRENE SULFONATE 15 GM/60 ML BOTTLE ONE ×2 (00:18→20:59)
[2016-09-27 00:57] LABS: CALCIUM 7.8 mg/dL (8.5-10.1); COCKROFT - GAULT 38.52; CREATININE 2.7 mg/dL (0.7-1.3)
[2016-09-27] MEDS ORDERED: FUROSEMIDE 40 MG/4 ML INJECTABLE VIAL IVPUSH ONE (02:13)
[2016-09-27] MEDS ORDERED: FUROSEMIDE 40 MG/4 ML INJECTABLE VIAL ONE (02:21)
[2016-09-27] MEDS ORDERED: OXYCODONE/APAP 5/325MG COMBO TABLET ONE (04:45)
[2016-09-27] MEDS ORDERED: ALBUTEROL SO4 2.5/IPRATROPIUM 0.5 INH SOL 3 ML VIAL.NEB. NEB ONE ×2 (04:46→05:00)
[2016-09-27] MEDS ORDERED: OXYCODONE/APAP 5/325MG COMBO TABLET PO ONE (05:00)
[2016-09-27] MEDS ORDERED: METOPROLOL TARTRATE 5 MG/5 ML VIAL IVPUSH ONE (05:02)
[2016-09-27] MEDS ORDERED: METOPROLOL TARTRATE 5 MG/5 ML VIAL ONE (05:07)
[2016-09-27] MEDS ORDERED: ALBUTEROL SO4 2.5/IPRATROPIUM 0.5 INH SOL 3 ML VIAL.NEB. NEB PRN (05:36)
[2016-09-27] MEDS ORDERED: ACETAMINOPHEN 325 MG TABLET (FP) PO PRN (05:41)
[2016-09-27] MEDS ORDERED: ACETAMINOPHEN 325 MG TABLET (FP) ONE (06:55)
[2016-09-27] MEDS ORDERED: HEMOQUE TEST 1 EACH EACH ONE (06:57)
[2016-09-27] MEDS: INSULIN SLIDING SCALE (NOVOLOG) 1 VIAL SQ SCH ×4 (07:09→21:02)
[2016-09-27 07:55] LABS: CALCIUM 8.3 mg/dL (8.5-10.1); COCKROFT - GAULT 38.52; CREATININE 2.7 mg/dL (0.7-1.3)
[2016-09-27] MEDS ORDERED: DEXTROSE 50%-WATER - 25 GM/50 ML VIAL IVPUSH ONE (09:22)
[2016-09-27] MEDS ORDERED: DEXTROSE 50%-WATER 50 ML DISP.SYRIN ONE (09:24)
[2016-09-27] MEDS ORDERED: PREGABALIN 100 MG CAPSULE PO SCH (10:00)
[2016-09-27] MEDS ORDERED: FUROSEMIDE 40 MG/4 ML INJECTABLE VIAL IVPB ONE ×2 (10:03→18:52)
--- NOTE | 2016-09-27 10:21 | CONSULT ---
Consult - text type - Consultation Consultation Note: Renal Consult for Hyperkalemia in setting of CKD This is a 61 year old gentleman with PMhx of CKD Stage 4 with subnephrotic proteinuriea, IDDM, PVD, Chronic Anemia who presented with severe hypoglycemia and AMS and found to have persistent hyperkalemia. Pt s/p recent admission for Acute Resp failure/Anemia/FROYLAN. Pt has a blood glucose of 18 on presentation and was unresponsive. S/p IV dextrose with improvement in MS and glucose levels. K was 7.6 on presentation and only improved to 6.6 s/p Insulin/D50/Bicarb/ kayealate. Pt with good urine output. No sob, chest pain, N/V/D. + PEREZ, unsure if he had fallen at the [place]. No flank pain, fever, chills. PMhx: as above Allergies: Shellfish Family Hx: NC ROS: as per HPI, all other pertinent ros negative Home Meds: Home Medications Medication Instructions Recorded Amlodipine Besylate [Norvasc -] 10 mg PO DAILY 11/07/14 Ascorbate Calcium [Vitamin C] 500 mg PO DAILY 11/07/14 Duloxetine HCl 30 mg PO DAILY 11/07/14 Ferrous Sulfate [Feosol] 325 mg PO DAILY 11/07/14 Folic Acid - 1 mg PO DAILY 11/07/14 Trazodone HCl 300 mg PO HS 11/07/14 Zinc Sulfate 220 mg PO DAILY 11/07/14 Doxazosin Mesylate [Cardura -] 4 mg PO DAILY #30 tablet 11/24/14 Aspirin [ASA -] 81 mg PO DAILY 03/08/16 Oxycodone HCl/Acetaminophen 1 tab PO QID #120 tablet MDD 4 08/01/16 [Percocet 5-325 mg Tablet] Mirtazapine [Remeron -] 30 mg PO HS 08/19/16 Pregabalin [Lyrica -] 100 mg PO BID MDD 2 08/19/16 Albuterol 0.083% Nebulizer Coretta 1 amp NEB Q4H PRN #0 amp 09/12/16 [Ventolin 0.083% Nebulizer Soln -] Albuterol 2.5/Ipratropium 0.5 1 amp NEB QIDR amp 09/12/16 [Duoneb -] Calcium Acetate [Phoslo -] 1,334 mg PO TIDCM #180 capsule 09/12/16 Ceftriaxone [Rocephin 2Gm Ivpb 100 ml IVPB DAILY #19 bag 09/12/16 (Pre-Docked)] Epoetin Joe [Procrit -] 10,000 unit SQ TUTHSA #12 ml 09/12/16 Furosemide [Lasix -] 20 mg PO DAILY #30 tablet 09/12/16 Insulin (Levemir) [Levemir Flexpen 20 units SQ DAILY #1 vial 09/12/16 -] Insulin Sliding Scale [Novolog 1 vial SQ TIDAC units 09/12/16 Vial Sliding Scale -] Metoprolol Tartrate [Lopressor -] 50 mg PO BID tablet 09/12/16 Picc Line Flush [Picc Line Flush -] 8 ml IVPUSH PRN PRN #0 ml 09/12/16 Sodium Bicarbonate - 325 mg PO DAILY tablet 09/12/16 Vital Signs Temperature 95.0 F L 09/26/16 19:50 Pulse Rate 80 09/27/16 07:34 Respiratory Rate 20 09/27/16 07:34 Blood Pressure 158/101 09/27/16 07:34 O2 Sat by Pulse Oximetry (%) 98 09/27/16 07:34 Intake & Output 09/24/16 09/25/16 09/26/16 09/27/16 23:59 23:59 23:59 23:59 Weight 209 lb Gen: NAD, awake and alert HEENT: NC/AT, MMM, No JVD, Neck supple CVS: RRR, No M/R Lungs: CTA, no rales or wheeze Abd: soft NT/ND Ext: Left foot TMA in dressing, 1+ edema LLE, trace edema RLE Neuro: awake and alert : No bladder distension CBC, BMP 09/26/16 20:00 09/27/16 07:22 Laboratory Tests 09/27/16 07:22 Calcium 8.3 L Current Medications Acetaminophen (Tylenol -) 650 mg PO Q6H PRN PRN Reason: FEVER OR PAIN Last Admin: 09/27/16 07:08 Dose: 650 mg Albuterol/Ipratropium (Duoneb -) 1 amp NEB Q6H PRN PRN Reason: SHORTNESS OF BREATH Amlodipine Besylate (Norvasc -) 10 mg PO DAILY IGGY Aspirin (Ecotrin -) 81 mg PO DAILY IGGY Calcium Acetate (Phoslo -) 667 mg PO TIDCM IGGY Doxazosin Mesylate (Cardura -) 4 mg PO DAILY IGGY Duloxetine HCl (Cymbalta -) 30 mg PO DAILY IGGY Ferrous Sulfate (Feosol -) 325 mg PO DAILY IGGY Folic Acid (Folic Acid -) 1 mg PO DAILY IGGY Dextrose (D10w -) 1,000 mls @ 42 mls/hr IV ASDIR IGGY Insulin Aspart (Novolog Vial Sliding Scale -) 1 vial SQ ACHS IGGY PRN Reason: Protocol Last Admin: 09/27/16 07:09 Dose: Not Given Insulin Detemir (Levemir Vial) 20 units SQ HS IGGY Metoprolol Tartrate (Lopressor -) 50 mg PO BID IGGY Mirtazapine (Remeron -) 30 mg PO HS IGGY Oxycodone HCl (Roxicodone -) 5 mg PO Q6H PRN PRN Reason: PAIN Pregabalin (Lyrica -) 100 mg PO BID IGGY Sodium Bicarbonate (Sodium Bicarbonate -) 650 mg PO DAILY IGGY Trazodone HCl (Desyrel -) 300 mg PO HS IGGY A/P 61 year old gentleman with PMhx of CKD Stage 4 with subnephrotic proteinuriea, IDDM, PVD, Chronic Anemia who presented with severe hypoglycemia and AMS and found to have persistent hyperkalemia. Pt s/p recent admission for Acute Resp failure/Anemia/FROYLAN. #Persistent Hyperkalemia No acute indication for AUTOMOTIVE SERVICE ADVISOR given no EKG changes and preserved kidney function etiology ingestion of high K foods in setting of CKD Will give IV lasix 80mg IVPB today Start D10 at 42cc per hour (stimulate endogenous insulin release) and can given further IV insulin once hypoglycemia resolved Repeat K at 12pm and Q4-6 hours following s/p kayexalate at 2am, had one soft BM, may need to repeat if no loose BM in the next 4 hours low K diet #CKD stage 4 Baseline Cr around 2.4, now Cr 2.7 Trend BUN/Cr dose all meds for Cr Cl less then 20 no YASMIN/ARB #Hypoglycemia etiology unclear, sepsis/osteomylitis? start D10 Trend Blood glucose Q1h for now consider endocrine evaluation #Osteomylitis/Suepcted PNA on CXR s/p Vanco and Zosyn in the ED f/u cultures Redose Jose by levels #Anemia/CKD related anemia continue Epogen TIW Thank you Will follow Miguel Jansen DO
[2016-09-27] MEDS: CALCIUM ACETATE 667 MG CAPSULE (FP) PO SCH ×3 (10:50→18:35)
[2016-09-27] MEDS: DULoxetine HCL 30 MG CAPSULE.DR (FP) PO SCH (10:52)
[2016-09-27] MEDS: ASPIRIN COATED 81 MG TABLET.EC PO SCH (10:52)
[2016-09-27] MEDS: METOPROLOL TARTRATE 50 MG TABLET (FP) PO SCH ×2 (10:52→21:01)
[2016-09-27] MEDS: FOLIC ACID 1 MG TABLET (FP) PO SCH (10:54)
[2016-09-27] MEDS: amLODIPine BESYLATE 10 MG TABLET (FP) PO SCH (10:55)
[2016-09-27] MEDS: SODIUM BICARBONATE 650 MG TABLET PO SCH (10:56)
[2016-09-27] MEDS: DEXTROSE 10%-WATER - 1,000 ML IV SCH (10:56)
[2016-09-27] MEDS: DOXAZOSIN MESYLATE 4 MG TABLET PO SCH (11:04)
[2016-09-27] MEDS: FERROUS SO4 325 MG TABLET (FP) PO SCH (11:04)
[2016-09-27 12:04] LABS: CALCIUM 7.9 mg/dL (8.5-10.1); CREATININE 2.6 mg/dL (0.7-1.3)
--- NOTE | 2016-09-27 12:49 | PN ---
Teaching Attending Note Name of Resident: Shahnaz Almonte ATTENDING PHYSICIAN STATEMENT I saw and evaluated the patient. I reviewed the resident's note and discussed the case with the resident. I agree with the resident's findings and plan as documented. SUBJECTIVE: Pt seen and examined in the ICU. Known from prior admissions, briefly a 61yo male with h/o DM, PAD, anemia who was sent from the longterm for altered mental status and hypoglycemia. Found to be hypoglycemic and hyperkalemic, given medical therapy. No EKG changes. Pt does report dizziness, lightheadedness but denies shortness of breath, chest pain or palpitations. He does not remember the events that led to his hospitalization aside from the hypoglycemia and drinking orange juice at the longterm. OBJECTIVE: Last Vital Signs Temp Pulse Resp BP Pulse Ox 95.0 F L 80 20 158/101 98 09/26/16 19:50 09/27/16 07:34 09/27/16 07:34 09/27/16 07:34 09/27/16 07:34 Intake & Output 09/24/16 09/25/16 09/26/16 09/27/16 23:59 23:59 23:59 23:59 Weight 209 lb Gen: NAD at rest Heart: RRR Lung: decreased breath sounds at the bases Abd: soft, nontender Ext: no edema, dressings dry CBC, BMP 09/26/16 20:00 09/27/16 11:28 Active Medications Acetaminophen (Tylenol -) 650 mg PO Q6H PRN PRN Reason: FEVER OR PAIN Last Admin: 09/27/16 07:08 Dose: 650 mg Albuterol/Ipratropium (Duoneb -) 1 amp NEB Q6H PRN PRN Reason: SHORTNESS OF BREATH Amlodipine Besylate (Norvasc -) 10 mg PO DAILY [facility] Last Admin: 09/27/16 10:55 Dose: 10 mg Aspirin (Ecotrin -) 81 mg PO DAILY [facility] Last Admin: 09/27/16 10:52 Dose: 81 mg Calcium Acetate (Phoslo -) 667 mg PO TIDCM [facility] Last Admin: 09/27/16 10:50 Dose: Not Given Doxazosin Mesylate (Cardura -) 4 mg PO DAILY [facility] Last Admin: 09/27/16 11:04 Dose: 4 mg Duloxetine HCl (Cymbalta -) 30 mg PO DAILY [facility] Last Admin: 09/27/16 10:52 Dose: 30 mg Ferrous Sulfate (Feosol -) 325 mg PO DAILY [facility] Last Admin: 09/27/16 11:04 Dose: 325 mg Folic Acid (Folic Acid -) 1 mg PO DAILY [facility] Last Admin: 09/27/16 10:54 Dose: 1 mg Dextrose (D10w -) 1,000 mls @ 42 mls/hr IV ASDIR [facility] Last Admin: 09/27/16 10:56 Dose: 42 mls/hr Insulin Aspart (Novolog Vial Sliding Scale -) 1 vial SQ ACHS [facility] PRN Reason: Protocol Last Admin: 09/27/16 07:09 Dose: Not Given Insulin Detemir (Levemir Vial) 20 units SQ HS [facility] Metoprolol Tartrate (Lopressor -) 50 mg PO BID [facility] Last Admin: 09/27/16 10:52 Dose: 50 mg Mirtazapine (Remeron -) 30 mg PO HS [facility] Oxycodone HCl (Roxicodone -) 5 mg PO Q6H PRN PRN Reason: PAIN Pregabalin (Lyrica -) 100 mg PO BID [facility] Sodium Bicarbonate (Sodium Bicarbonate -) 650 mg PO DAILY [facility] Last Admin: 09/27/16 10:56 Dose: 650 mg Trazodone HCl (Desyrel -) 300 mg PO HS [facility] ASSESSMENT AND PLAN: Altered Mental Status improving Hypoglycemia Hyperkalemia CKD DM Anemia Osteomyelitis - continue medical therapy for hyperkalemia - kayexalate - placed on D10 by renal - monitor BGM, BMP closely - IV lasix - monitor urine output, creatinine - bicarb - ICU monitoring overnight
[2016-09-27 13:13] VITALS: BMI 26.8
--- NOTE | 2016-09-27 13:18 | HP ---
Admitting History and Physical - Primary Care Physician PCP: Antonio Bhakta - Admission Chief Complaint: ACUTE ON CHRONIC RENAL FAILURE/ACUTE ON CHRONIC CHF/ALTERED MENTAL STATUS History of Present Illness: Patient is a 61 year old male with a significant past medical history of DM Type II, Hypertension, anemia, Peripheral Disease, Osteomyelitis (08/2014), Depression, GERD who presents to the ED with AMS. As per NH patient was last seen at baseline approximately at 5 PM, 3 hours before presenting to the ED. Patient was found hypoxic and lethargic, with BG of 70 and Hbg of 7.1. Patient presents to the ED nonverbal, and initially found to have a BG of 46 while in the ED. After 2 doses of 50 mL dextrose patient is alert and talking. Patient states that he was given insulin this morning but he did not eat anything yesterday. Surgical history: Left Transmetatarsal amputation 5 digits (2013), right great toe amputation. History Source: Medical Record Limitations to Obtaining History: Clinical Condition - Past Medical History BUSINESS CONTINUITY CONSULTANT: Yes: Peripheral Neuropathy Cardiovascular: Yes: HTN Gastrointestinal: Yes: GERD Psych: Yes: Depression Musculoskeletal: Yes: Other (chronic pain) Rheumatology: Yes: Other (history of osteomyletis) Endocrine: Yes: Diabetes Mellitus - Past Surgical History Past Surgical History: Yes: Amputation (transmetatarsal of Left foot) - Smoking History Smoking history: Never smoked Have you smoked in the past 12 months: No Aproximately how many cigarettes per day: 0 - Alcohol/Substance Use Hx Alcohol Use: No Number of Drinks Daily: 2 (weekends) - Social History ADL: Support Services History of Recent Travel: No Home Medications - Allergies Allergies/Adverse Reactions: Allergies Allergy/AdvReac Type Severity Reaction Status Date / Time shellfish derived Allergy Severe "HIVES" Verified 09/26/16 20:16 No Known Drug Allergies Allergy Verified 09/26/16 20:16 - Home Medications Home Medications: Ambulatory Orders Amlodipine Besylate [Norvasc -] 10 mg PO DAILY 11/07/14 Ascorbate Calcium [Vitamin C] 500 mg PO DAILY 11/07/14 Duloxetine HCl 30 mg PO DAILY 11/07/14 Ferrous Sulfate [Feosol] 325 mg PO DAILY 11/07/14 Folic Acid - 1 mg PO DAILY 11/07/14 Trazodone HCl 300 mg PO HS 11/07/14 Zinc Sulfate 220 mg PO DAILY 11/07/14 Doxazosin Mesylate [Cardura -] 4 mg PO DAILY #30 tablet 11/24/14 Aspirin [ASA -] 81 mg PO DAILY 03/08/16 Oxycodone HCl/Acetaminophen [Percocet 5-325 mg Tablet] 1 tab PO QID #120 tablet MDD 4 08/01/16 Mirtazapine [Remeron -] 30 mg PO HS 08/19/16 Pregabalin [Lyrica -] 100 mg PO BID MDD 2 08/19/16 Albuterol 0.083% Nebulizer Coretta [Ventolin 0.083% Nebulizer Soln -] 1 amp NEB Q4H PRN #0 amp 09/12/16 Albuterol 2.5/Ipratropium 0.5 [Duoneb -] 1 amp NEB QIDR amp 09/12/16 Calcium Acetate [Phoslo -] 1,334 mg PO TIDCM #180 capsule 09/12/16 Ceftriaxone [Rocephin 2Gm Ivpb (Pre-Docked)] 100 ml IVPB DAILY #19 bag 09/12/16 Epoetin Joe [Procrit -] 10,000 unit SQ TUTHSA #12 ml 09/12/16 Furosemide [Lasix -] 20 mg PO DAILY #30 tablet 09/12/16 Insulin (Levemir) [Levemir Flexpen -] 20 units SQ DAILY #1 vial 09/12/16 Insulin Sliding Scale [Novolog Vial Sliding Scale -] 1 vial SQ TIDAC units Metoprolol Tartrate [Lopressor -] 50 mg PO BID tablet 09/12/16 Picc Line Flush [Picc Line Flush -] 8 ml IVPUSH PRN PRN #0 ml 09/12/16 Sodium Bicarbonate - 325 mg PO DAILY tablet 09/12/16 Family Disease History - Family Disease History Family Disease History: Diabetes: Mother Review of Systems - Review of Systems Constitutional: reports: Lethargy, Malaise Eyes: reports: No Symptoms HENT: reports: No Symptoms Neck: reports: No Symptoms Cardiovascular: reports: Shortness of Breath Respiratory: reports: SOB Gastrointestinal: reports: No Symptoms Genitourinary: reports: Other Musculoskeletal: reports: Joint Pain, Muscle Pain Integumentary: reports: No Symptoms Neurological: reports: Confusion Endocrine: reports: Other Physical Examination Vital Signs: Vital Signs Temperature 98.3 F 09/27/16 13:02 Pulse Rate 81 09/27/16 13:02 Respiratory Rate 24 09/27/16 13:02 Blood Pressure 155/96 09/27/16 13:02 O2 Sat by Pulse Oximetry (%) 98 09/27/16 09:00 Findings/Remarks: IN ICU, MORE ALERT NOW, EATING LUNCH Constitutional: Yes: Mild Distress Eyes: Yes: WNL HENT: Yes: WNL Neck: Yes: WNL Cardiovascular: Yes: WNL Respiratory: Yes: On Nasal O2 Gastrointestinal: Yes: WNL Renal/: Yes: Other Musculoskeletal: Yes: Muscle Weakness Extremities: Yes: WNL Edema: Yes Edema: LLE: 1+, RLE: 1+ Peripheral Pulses WNL: Yes Integumentary: Yes: Other Wound/Incision: Yes: Dressing Dry and Intact Neurological: Yes: Pre-Existing Deficit, Weakness ...Motor Strength: LLE, RLE Psychiatric: Yes: Agitated Labs: CBC, BMP 09/27/16 11:28 Assessment/Plan ACUTE ON CHRONIC RENAL FAILURE WITH HYPERKALEMIA RENAL CONSULT LASIX/D50/INSULIN/KAYEXALATE GIVEN CHECK LABS THIS AFTERNOON CHF ON LASIX CHECK ECHO 2D FOR EF5 CARDIOLOGY EVAL ICU MONITORING FOR NOW
--- NOTE | 2016-09-27 13:34 | CONSULT ---
Consultation: REQUESTING PROVIDER: CONSULT REQUEST: We have been asked to medically evaluate this patient for ( specify). HISTORY OF PRESENT ILLNESS: The patient is a 61 year old male with a significant past medical history of DM Type II, Hypertension, CKD stage 4, chronic anemia, osteomyelitis, depression , GERD who presents to the ED BIB from [place] with AMS and hypoglycemia. As per patient he had his normal insulin in the morning, ate "big" lunch and in the afternoon the nurse found his BGM to be low. He was given orange juice to drink and then doesn't recall what happened next. He woke up in the hospital. In ED the patient was found hypoxic lethargic, with BGM around 40s and Hbg of 7.1 and persistent hyperkalemia 7.6 initially. He was given 2 doses of 50 mL dextrose and his mental status improved. Today he is feeling good. The only complaint that he reports is generalized muscle pain. He denies chest pain, dizziness, SOB , N/V, diarrhea, fever, chills. REVIEW OF SYSTEMS: CONSTITUTIONAL: Absent: fever, chills, diaphoresis, generalized weakness, malaise, loss of appetite, weight change HEENT: Absent: rhinorrhea, nasal congestion, throat pain, throat swelling, difficulty swallowing, mouth swelling, ear pain, eye pain, visual changes CARDIOVASCULAR: Absent: chest pain, syncope, palpitations, irregular heart rate, lightheadedness , peripheral edema RESPIRATORY: Absent: cough, shortness of breath, dyspnea with exertion, orthopnea, wheezing, stridor, hemoptysis GASTROINTESTINAL: Absent: abdominal pain, abdominal distension, nausea, vomiting, diarrhea, constipation, melena, hematochezia GENITOURINARY: Absent: dysuria, frequency, urgency, hesitancy, hematuria, flank pain, genital pain MUSCULOSKELETAL: myalgia Absent: arthralgia, joint swelling, back pain, neck pain SKIN: Absent: rash, itching, pallor HEMATOLOGIC/IMMUNOLOGIC: Absent: easy bleeding, easy bruising, lymphadenopathy, frequent infections ENDOCRINE: Absent: unexplained weight gain, unexplained weight loss, heat intolerance, cold intolerance NEUROLOGIC: Absent: headache, focal weakness or paresthesias, dizziness, unsteady gait, seizure, incontinence PSYCHIATRIC: Absent: anxiety, depression, suicidal or homicidal ideation, hallucinations. PHYSICAL EXAMINATION Vital Signs - 24 hr 09/27/16 09/27/16 09/27/16 02:27 05:16 06:19 Pulse Rate 71 Pulse Rate [ 71 84 Left Radial] Respiratory 18 18 Rate Blood Pressure 161/110 Blood Pressure 160/110 151/101 [Right Arm] O2 Sat by Pulse 97 95 Oximetry (%) 09/27/16 09/27/16 07:34 09:00 Pulse Rate Pulse Rate [ 80 Left Radial] Respiratory 20 20 Rate Blood Pressure Blood Pressure 158/101 [Right Arm] O2 Sat by Pulse 98 98 Oximetry (%) GENERAL: Awake, alert, and fully oriented, in no acute distress. HEAD: Normal with no signs of trauma. EYES: extraocular movements intact, sclera anicteric, conjunctiva clear. EARS, NOSE, THROAT: Moist mucous membranes. NECK: Normal range of motion, supple without lymphadenopathy. LUNGS: Breath sounds equal, clear to auscultation bilaterally. No wheezes, and no crackles. No accessory muscle use. HEART: Regular rate and rhythm, normal S1 and S2 without murmur, rub or gallop. ABDOMEN: Soft, nontender, not distended, normoactive bowel sounds, no guarding, no rebound, no masses. MUSCULOSKELETAL: Normal range of motion at all joints. No bony deformities or tenderness. No CVA tenderness. UPPER EXTREMITIES: 2+ pulses, warm, well-perfused. No cyanosis. No clubbing. Cap refill <2 seconds. No peripheral edema. LOWER EXTREMITIES: 2+ pulses, warm, well-perfused. No calf tenderness. 1+ peripheral edema, amputation of left MTP, dressing applied, multiple toes amputations in right foot. NEUROLOGICAL: No facial asymmetry. Normal speech. Gait not observed. PSYCHIATRIC: Cooperative. Good eye contact. Appropriate mood and affect. SKIN: Warm, dry, normal turgor, no rashes. Laboratory Results - last 24 hr 09/27/16 09/27/16 09/27/16 07:03 07:22 11:28 Sodium 138 139 Potassium 6.6 H* 6.2 H* Chloride 108 H 108 H Carbon Dioxide 20 L 23 Anion Gap 10 8 BUN 42 H 42 H Creatinine 2.7 H 2.6 H POC Glucometer 108.04599 Random Glucose 75 D 122 H D Calcium 8.3 L 7.9 L B-Natriuretic Peptide 09/27/16 09/27/16 09/27/16 11:28 11:35 12:46 Sodium Potassium Chloride Carbon Dioxide Anion Gap BUN Creatinine POC Glucometer 149.86358 163.73441 Random Glucose Calcium B-Natriuretic Peptide 23723.78 H Active Medications Generic Name Dose Route Start Last Admin Trade Name Freq PRN Reason Stop Dose Admin Acetaminophen 650 mg 09/27/16 05:41 09/27/16 07:08 Tylenol - PO 650 mg Q6H PRN Administration FEVER OR PAIN Albuterol/Ipratropium 1 amp 09/27/16 05:36 Duoneb - NEB Q6H PRN SHORTNESS OF BREATH Amlodipine Besylate 10 mg 09/27/16 10:00 09/27/16 10:55 Norvasc - PO 10 mg DAILY IGGY Administration Aspirin 81 mg 09/27/16 10:00 09/27/16 10:52 Ecotrin - PO 81 mg DAILY IGGY Administration Calcium Acetate 667 mg 09/27/16 08:00 09/27/16 10:50 Phoslo - PO Not Given TIDCM IGGY Doxazosin Mesylate 4 mg 09/27/16 10:00 09/27/16 11:04 Cardura - PO 4 mg DAILY IGGY Administration Duloxetine HCl 30 mg 09/27/16 10:00 09/27/16 10:52 Cymbalta - PO 30 mg DAILY IGGY Administration Ferrous Sulfate 325 mg 09/27/16 10:00 09/27/16 11:04 Feosol - PO 325 mg DAILY IGGY Administration Folic Acid 1 mg 09/27/16 10:00 09/27/16 10:54 Folic Acid - PO 1 mg DAILY IGGY Administration Dextrose 1,000 mls @ 42 mls/hr 09/27/16 10:15 09/27/16 10:56 D10w - IV 42 mls/hr ASDIR IGGY Administration Insulin Aspart 1 vial 09/27/16 07:00 09/27/16 07:09 Novolog Vial Sliding Scale - SQ Not Given ACHS [facility] Protocol Insulin Detemir 20 units 09/27/16 22:00 Levemir Vial SQ HS [facility] Metoprolol Tartrate 50 mg 09/27/16 10:00 09/27/16 10:52 Lopressor - PO 50 mg BID IGGY Administration Mirtazapine 30 mg 09/27/16 22:00 Remeron - PO HS IGG[facility] Oxycodone HCl 5 mg 09/27/16 05:41 Roxicodone - PO Q6H PRN PAIN Pregabalin 100 mg 09/27/16 10:48 Lyrica - PO BID IGGY Sodium Bicarbonate 650 mg 09/27/16 10:00 09/27/16 10:56 Sodium Bicarbonate - PO 650 mg DAILY [facility] Administration Trazodone HCl 300 mg 09/27/16 22:00 Desyrel - PO HS [facility] ASSESSMENT/PLAN: The patient is a 61 year old male with a significant past medical history of DM Type II, Hypertension, CKD stage 4, chronic anemia, osteomyelitis, depression , GERD who presents to the ED BIBA from [place] with AMS and hypoglycemia. He is admitted to ICU for persistent hyperkalemia. Persistent Hyperkalemia no EKG changes and preserved kidney function cont. IV lasix 80mg IVPB today Start D10 at 42cc per hour f/u K low K diet CHF: -cardiology consulted -f/u BNP that was elevated -continue lasix -f/u signs of fluid overload CKD stage 4 Baseline Cr around 2.4, now Cr 2.7 monitor BUN/Cr avoid nephrotoxic substances Hypoglycemia etiology unclear cont start D10 Trend Blood glucose Q1h IDDM: -cont monitoring BGM -ISS -Levemir 20 u HS h/o Osteomylitis s/p Vanco and Zosyn in the ED f/u wound cultures podiatry consultation Anemia continue Epogen TIW Hgb stable now DVT PPX: -SCDs GI PPX: -no indicated F/E/N: d10/hyperkalemia/Diabetic, low k Dispo: monitor in ICU. We will continue to follow the patient. Thank you for this consultative opportunity. Problem List - Problems (1) Acute hyperkalemia Code(s): E87.5 - HYPERKALEMIA (2) Hypoglycemia Code(s): E16.2 - HYPOGLYCEMIA, UNSPECIFIED (3) FROYLAN (acute kidney injury) Code(s): N17.9 - ACUTE KIDNEY FAILURE, UNSPECIFIED (4) Acute on chronic diastolic heart failure Code(s): I50.33 - ACUTE ON CHRONIC DIASTOLIC (CONGESTIVE) HEART FAILURE (5) Hyperkalemia Code(s): E87.5 - HYPERKALEMIA (6) Osteoarthritis Code(s): M19.90 - UNSPECIFIED OSTEOARTHRITIS, UNSPECIFIED SITE (7) S/P amputation Code(s): Z89.9 - ACQUIRED ABSENCE OF LIMB, UNSPECIFIED (8) Vitamin D deficiency Code(s): E55.9 - VITAMIN D DEFICIENCY, UNSPECIFIED Visit type - Emergency Visit Emergency Visit: Yes ED Registration Date: 09/27/16 Care time: The patient presented to the Emergency Department on the above date and was hospitalized for further evaluation of their emergent condition. - New Patient This patient is new to me today: No - Critical Care Critical Care patient: Yes Total Critical Care Time (in minutes): 45 Critical Care Statement: The care of this patient involved high complexity decision making to prevent further life threatening deterioration of the patient 's condition and/or to evalute & treat vital organ system(s) failure or risk of failure.
--- NOTE | 2016-09-27 15:19 | PN ---
Progress Note (short form) - Note Progress Note: Thank you for the consult. Will attend patient with 24 hours
--- NOTE | 2016-09-27 15:29 | CON.CARD ---
Consult Consult Specialty:: Cardiology Reason for Consultation:: Elevated BNP - History of Present Illness History of Present Illness: 61 year old male with past medical history of DM Type II, Hypertension, anemia , Peripheral Disease, Osteomyelitis (08/2014), Depression, GERD who presents to the ED with AMS. He was found hypoxic and lethargic, with BG of 70 and Hbg of 7.1. At initial presentation foud to have profound hypoglycemia and non-verbal. Mental status normal after glucose. He was recently admitted with severe anemia requiring multiple transfusions, heart failure with echocardiogram documenting normal LV function and valvular function. 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: Peripheral Neuropathy Cardio/Vascular: Yes: HTN Gastrointestinal: Yes: GERD Psych: Yes: Depression Musculoskeletal: Yes: Other (chronic pain) Rheumatology: Yes: Other (history of osteomyletis) Endocrine: Yes: Diabetes Mellitus - Past Surgical History Past Surgical History: Yes: Amputation (transmetatarsal of Left foot) - Alcohol/Substance Use Hx Alcohol Use: No Number of Drinks Daily: 2 (weekends) - Smoking History Smoking history: Never smoked Have you smoked in the past 12 months: No Aproximately how many cigarettes per day: 0 - Social History Usual Living Arrangement: Snf ADL: Support Services History of Recent Travel: No Home Medications - Allergies Allergies/Adverse Reactions: Allergies Allergy/AdvReac Type Severity Reaction Status Date / Time shellfish derived Allergy Severe "HIVES" Verified 09/26/16 20:16 No Known Drug Allergies Allergy Verified 09/26/16 20:16 - Home Medications Home Medications: Ambulatory Orders Amlodipine Besylate [Norvasc -] 10 mg PO DAILY 11/07/14 Ascorbate Calcium [Vitamin C] 500 mg PO DAILY 11/07/14 Duloxetine HCl 30 mg PO DAILY 11/07/14 Ferrous Sulfate [Feosol] 325 mg PO DAILY 11/07/14 Folic Acid - 1 mg PO DAILY 11/07/14 Trazodone HCl 300 mg PO HS 11/07/14 Zinc Sulfate 220 mg PO DAILY 11/07/14 Doxazosin Mesylate [Cardura -] 4 mg PO DAILY #30 tablet 11/24/14 Aspirin [ASA -] 81 mg PO DAILY 03/08/16 Oxycodone HCl/Acetaminophen [Percocet 5-325 mg Tablet] 1 tab PO QID #120 tablet MDD 4 08/01/16 Mirtazapine [Remeron -] 30 mg PO HS 08/19/16 Pregabalin [Lyrica -] 100 mg PO BID MDD 2 08/19/16 Albuterol 0.083% Nebulizer Coretta [Ventolin 0.083% Nebulizer Soln -] 1 amp NEB Q4H PRN #0 amp 09/12/16 Albuterol 2.5/Ipratropium 0.5 [Duoneb -] 1 amp NEB QIDR amp 09/12/16 Calcium Acetate [Phoslo -] 1,334 mg PO TIDCM #180 capsule 09/12/16 Ceftriaxone [Rocephin 2Gm Ivpb (Pre-Docked)] 100 ml IVPB DAILY #19 bag 09/12/16 Epoetin Joe [Procrit -] 10,000 unit SQ TUTHSA #12 ml 09/12/16 Furosemide [Lasix -] 20 mg PO DAILY #30 tablet 09/12/16 Insulin (Levemir) [Levemir Flexpen -] 20 units SQ DAILY #1 vial 09/12/16 Insulin Sliding Scale [Novolog Vial Sliding Scale -] 1 vial SQ TIDAC units Metoprolol Tartrate [Lopressor -] 50 mg PO BID tablet 09/12/16 Picc Line Flush [Picc Line Flush -] 8 ml IVPUSH PRN PRN #0 ml 09/12/16 Sodium Bicarbonate - 325 mg PO DAILY tablet 09/12/16 Family Disease History - Family Disease History Family Disease History: Diabetes: Mother Review of Systems - Review of Systems Constitutional: reports: No Symptoms Eyes: reports: No Symptoms HENT: reports: No Symptoms Neck: reports: No Symptoms Cardiovascular: reports: Edema Respiratory: reports: Cough Gastrointestinal: reports: No Symptoms Vital Signs: Vital Signs Temperature 98.3 F 09/27/16 13:02 Pulse Rate 81 09/27/16 13:02 Respiratory Rate 24 09/27/16 13:36 Blood Pressure 155/96 09/27/16 13:02 O2 Sat by Pulse Oximetry (%) 98 09/27/16 13:36 Constitutional: Yes: Well Nourished, No Distress, Calm Eyes: Yes: WNL HENT: Yes: WNL Respiratory: Yes: WNL, Regular, CTA Bilaterally Gastrointestinal: Yes: Normal Bowel Sounds Cardiovascular: Yes: Regular Rate and Rhythm JVD: No Carotid Bruit: No PMI: Non-Displaced Heart Sounds: Yes: S1, S2 Edema: Yes Edema: LLE: Trace, RLE: Trace - Other Data Labs, Other Data: CBC, BMP 09/27/16 11:28 Troponin, BNP 09/27/16 11:28 B-Natriuretic Peptide 89486.78 H Troponin, BNP 09/27/16 11:28 B-Natriuretic Peptide 86014.78 H NSR LVH no STT changes Echo: Report Reviewed Imaging - Results Chest X-ray: Report Reviewed Problem List - Problems (1) Acute on chronic diastolic heart failure Code(s): I50.33 - ACUTE ON CHRONIC DIASTOLIC (CONGESTIVE) HEART FAILURE (2) Hyperkalemia Code(s): E87.5 - HYPERKALEMIA (3) Chronic renal insufficiency, stage III (moderate) Code(s): N18.3 - CHRONIC KIDNEY DISEASE, STAGE 3 (MODERATE) Assessment/Plan Echocardiogram with normal LV function and no valvular pathology. Currently not hypoxic or dyspnec and CXR shows small effusions. BNP chronically elevated and not significantly above baseline elevations. Likely has chronic heart failure with preserved EF due to DM and chronic HTN with CKD. BP control and prudent diuretic use if developes dyspnea or hypoxemia. BNP may improve after BP is lower. If BP remians elevated consider switching Amlodipine to Nifedipine 30mg BID
--- NOTE | 2016-09-27 15:38 | EKG ---
Test Reason : Blood Pressure : / mmHG Vent. Rate : 080 BPM Atrial Rate : 080 BPM P-R Int : 228 ms QRS Dur : 088 ms QT Int : 390 ms P-R-T Axes : 117 070 090 degrees QTc Int : 449 ms SINUS RHYTHM WITH 1ST DEGREE A-V BLOCK WITH PREMATURE ATRIAL COMPLEXES OTHERWISE NORMAL ECG WHEN COMPARED WITH ECG OF 26-SEP-2016 20:53, PREMATURE ATRIAL COMPLEXES ARE NOW PRESENT VENT. RATE HAS INCREASED BY 33 BPM INCOMPLETE LEFT BUNDLE BRANCH BLOCK IS NO LONGER PRESENT Confirmed by DALE FRANCO MD ([id number]) on 09/27/2016 3:37:53 PM Referred By: Confirmed By:DALE FRANCO MD
[2016-09-27] MEDS: oxyCODONE HCL 5 MG TABLET PO PRN (16:09)
[2016-09-27 18:09] LABS: CALCIUM 7.6 mg/dL (8.5-10.1); COCKROFT - GAULT 37.77; CREATININE 2.9 mg/dL (0.7-1.3)
[2016-09-27 18:10] LABS: BILIRUBIN,TOTAL 0.4 mg/dL (0.2-1.0); TOT PROT 6.8 g/dl (6.4-8.2)
[2016-09-27] MEDS ORDERED: FUROSEMIDE 100 MG/10 ML INJECTABLE VIAL ONE (20:58)
[2016-09-27] MEDS: PREGABALIN 50 MG CAPSULE PO SCH (21:02)
--- NOTE | 2016-09-27 21:37 | PN ---
Progress Note (short form) - Note Progress Note: Attended patient this evening. Wound fairly clean will require debridement but is not urgent. Initiate [facility] Wound VAC and will continue to follow. No immediate intervention indicated.
[2016-09-27] MEDS ORDERED: traZODone HCL 150 MG TABLET PO SCH (22:00)
[2016-09-27] MEDS ORDERED: INSULIN DETEMIR 100 UNITS/ML MDV SQ SCH (22:00)
[2016-09-27] MEDS ORDERED: MIRTAZAPINE 30 MG TABLET (FP) PO SCH (22:00)
[2016-09-28 01:25] LABS: CALCIUM 7.6 mg/dL (8.5-10.1); COCKROFT - GAULT 37.77; CREATININE 2.9 mg/dL (0.7-1.3)
[2016-09-28] MEDS: oxyCODONE HCL 5 MG TABLET PO PRN ×2 (05:40→21:22)
[2016-09-28 06:21] LABS: MEAN CELL VOLUME 81.1 fl (80-96); MEAN PLT VOLUME 7.2 fl (7.5-11.1); PLATELET COUNT 285 K/MM3 (134-434); RDW 27.6 % (11.9-15.9); WHITE BLOOD COUNT 15.1 K/mm3 (4.0-10.0)
[2016-09-28 07:06] LABS: BILIRUBIN,TOTAL 0.5 mg/dL (0.2-1.0); CALCIUM 7.9 mg/dL (8.5-10.1); COCKROFT - GAULT 39.12; CREATININE 2.8 mg/dL (0.7-1.3); TOT PROT 6.8 g/dl (6.4-8.2)
--- NOTE | 2016-09-28 07:31 | CONS ---
DATE OF CONSULTATION: 09/27/2016 PRESENTING PROBLEM: This is a followup on an incision and drainage, osseous debridement, and implantation of antibiotic-infused biodegradable beads of the left foot. HISTORY OF PRESENT ILLNESS: Patient is well known to this examiner. Patient was admitted through the emergency department with severe hypoglycemia and hyperkalemia. Patient was hypoxic, was lethargic, severely anemic with a hemoglobin of 7.1, and a plasma glucose of 70 mg/dL, presented nonverbal. Patient was attended by this examiner during the previous hospitalization for an undertreated osteomyelitis due to patient noncompliance in obtaining infectious disease consultation for a positive bone biopsy. Patient had been followed by this examiner at the [facility] for flap failure from the transmetatarsal amputation. Flap of the wound epithelialized, and patient then presented with an abscess. Patient was brought to the operating theater twice for biopsy and osseous debridement with the insertion of antibiotic-infused (vancomycin and gentamicin) biodegradable beads and was being followed at [facility] for continued wound care. SIGNIFICANT PAST AND PRESENT MEDICAL HISTORY: Significant for multiple foot ulcerations, transmetatarsal amputation, great toe amputation performed at this institution. Patient suffers from chronic kidney disease, hyperkalemia, chronic anemia, peripheral edema with cellulitis, poorly controlled diabetes mellitus, degenerative joint disease. Patient also has anesthetic and occasionally painful peripheral neuropathy for which he has been treated with gabapentin, Lyrica, and Cymbalta. ALLERGIC HISTORY: Significant for SHELLFISH derived allergies. No known drug allergies. 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 CLINICAL EXAMINATION: General: Patient was lying comfortably in the intensive care unit. Extremities: Examination of the left lower limb reveals moderate peripheral edema. Patient had a dry sterile dressing applied. Removal of the dressing reveals that the large ulceration proceeding to the muscular level and with some remnants of the antibiotic-infused beads within the wound. The wound is approximately 60% granulated with 40% slough. No suppuration, no setting cellulitis. ASSESSMENT: Chronic osteomyelitis, diabetic foot ulceration. PLAN: I examined the wound, performed a mechanical debridement, replaced the antibiotic beads and applied the [facility] wound VAC @ 125 mmHg. This examiner does not see the necessity of bringing patient to the operating theater for a debridement at this time. Depending on the length of this current hospitalization, could wait another several days before debriding patient possibly doing at bedside. Will continue to follow the patient. Total time with patient, reviewing record , discussing with staff [address] NIURKA ARMSTRONG RT/[id number] MTDD
[2016-09-28] MEDS: INSULIN SLIDING SCALE (NOVOLOG) 1 VIAL SQ SCH ×4 (08:01→21:17)
[2016-09-28] MEDS: CALCIUM ACETATE 667 MG CAPSULE (FP) PO SCH ×3 (08:48→17:44)
[2016-09-28] MEDS ORDERED: PT OWN MED DRAWER 7, Y5N ONE (08:48)
[2016-09-28] MEDS: PREGABALIN 50 MG CAPSULE PO SCH ×2 (10:00→21:12)
[2016-09-28] MEDS: SODIUM BICARBONATE 650 MG TABLET PO SCH (10:00)
[2016-09-28] MEDS: FOLIC ACID 1 MG TABLET (FP) PO SCH (10:00)
[2016-09-28] MEDS: FERROUS SO4 325 MG TABLET (FP) PO SCH (10:01)
[2016-09-28] MEDS: amLODIPine BESYLATE 10 MG TABLET (FP) PO SCH (10:01)
[2016-09-28] MEDS: DULoxetine HCL 30 MG CAPSULE.DR (FP) PO SCH (10:01)
[2016-09-28] MEDS: ASPIRIN COATED 81 MG TABLET.EC PO SCH (10:01)
[2016-09-28] MEDS: METOPROLOL TARTRATE 50 MG TABLET (FP) PO SCH ×2 (10:03→21:12)
--- NOTE | 2016-09-28 10:38 | PN ---
Progress Note (short form) - Note Progress Note: Renal Follow up for CKD/Hyperkalemia Pt seen and examined in the ICU awake and alert no sob, chest pain, N/V/D Blood glucose improved this am Vital Signs Temperature 98 F 09/28/16 07:27 Pulse Rate 83 09/28/16 07:27 Respiratory Rate 22 09/28/16 09:00 Blood Pressure 159/88 09/28/16 07:27 O2 Sat by Pulse Oximetry (%) 94 L 09/28/16 09:00 Intake & Output 09/25/16 09/26/16 09/27/16 09/28/16 23:59 23:59 23:59 23:59 Intake Total 1612 Output Total 700 800 Balance 912 -800 Weight 209 lb 220 lb 2 oz Gen: NAD, awake and alert CVS: RRR, No M/R Lungs: CTA, no rales or wheeze Abd: soft NT/ND Ext: Left foot TMA, Drain in place CBC, BMP 09/28/16 05:10 09/28/16 05:10 Laboratory Tests 09/28/16 05:10 Calcium 7.9 L Albumin 2.0 L Current Medications Acetaminophen (Tylenol -) 650 mg PO Q6H PRN PRN Reason: FEVER OR PAIN Last Admin: 09/27/16 07:08 Dose: 650 mg Albuterol/Ipratropium (Duoneb -) 1 amp NEB Q6H PRN PRN Reason: SHORTNESS OF BREATH Last Admin: 09/27/16 17:01 Dose: 1 amp Amlodipine Besylate (Norvasc -) 10 mg PO DAILY [facility] Last Admin: 09/28/16 10:01 Dose: 10 mg Aspirin (Ecotrin -) 81 mg PO DAILY [facility] Last Admin: 09/28/16 10:01 Dose: 81 mg Calcium Acetate (Phoslo -) 667 mg PO TIDCM [facility] Last Admin: 09/28/16 08:48 Dose: 667 mg Doxazosin Mesylate (Cardura -) 4 mg PO DAILY [facility] Last Admin: 09/27/16 11:04 Dose: 4 mg Duloxetine HCl (Cymbalta -) 30 mg PO DAILY [facility] Last Admin: 09/28/16 10:01 Dose: 30 mg Ferrous Sulfate (Feosol -) 325 mg PO DAILY [facility] Last Admin: 06/02/17 10:01 Dose: 325 mg Folic Acid (Folic Acid -) 1 mg PO DAILY [facility] Last Admin: 09/28/16 10:00 Dose: 1 mg Dextrose (D10w -) 1,000 mls @ 42 mls/hr IV ASDIR [facility] Last Admin: 09/27/16 10:56 Dose: 42 mls/hr Insulin Aspart (Novolog Vial Sliding Scale -) 1 vial SQ ACHS IGGY PRN Reason: Protocol Last Admin: 09/28/16 08:01 Dose: 2 units Insulin Detemir (Levemir Vial) 20 units SQ HS [facility] Last Admin: 09/27/16 21:01 Dose: Not Given Metoprolol Tartrate (Lopressor -) 50 mg PO BID [facility] Last Admin: 09/28/16 10:03 Dose: 50 mg Mirtazapine (Remeron -) 30 mg PO HS [facility] Last Admin: 09/27/16 21:02 Dose: 30 mg Oxycodone HCl (Roxicodone -) 5 mg PO Q6H PRN PRN Reason: PAIN Last Admin: 09/28/16 05:40 Dose: 5 mg Pregabalin (Lyrica -) 100 mg PO BID [facility] Last Admin: 09/28/16 10:00 Dose: 100 mg Sodium Bicarbonate (Sodium Bicarbonate -) 650 mg PO DAILY [facility] Last Admin: 09/28/16 10:00 Dose: 650 mg Trazodone HCl (Desyrel -) 300 mg PO [facility] A/P 61 year old gentleman with PMhx of CKD Stage 4 with subnephrotic proteinuriea, IDDM, PVD, Chronic Anemia who presented with severe hypoglycemia and AMS and found to have persistent hyperkalemia. Pt s/p recent admission for Acute Resp failure/Anemia/FROYLAN. #Hyperkalemia Now improved s/p Kayexlate and IV Lasix Continue Low K diet Ternd K daily Pt may benefit from standing diuretics #CKD stage 4 BUN/Cr stable no acute indication for [employer] at this time #Hypoglycemia improved s/p D10 gtt consider endocrine evaluation #Osteomylitis/Suepcted PNA on CXR s/p Vanco and Zosyn in the ED was on Ceftriaxone IV as outpatient for Osteo can resume Ceftriaxone #Anemia/CKD related anemia continue Epogen TIW Thank you Will follow Miguel Jansen DO
[2016-09-28] MEDS ORDERED: CEFTRIAXONE 100 ML IVPB SCH (10:45)
[2016-09-28] MEDS ORDERED: EPOETIN ALFA 10,000 UNIT/1 ML VIAL SQ SCH ×2 (11:00→12:21)
[2016-09-28] MEDS: DOXAZOSIN MESYLATE 4 MG TABLET PO SCH (11:17)
[2016-09-28] MEDS ORDERED: HEMOQUE TEST 1 EACH EACH ONE (11:27)
--- NOTE | 2016-09-28 12:11 | PN ---
Progress Note, Physician Chief Complaint: AWAKE ALERT LESS AGITATED TODAY TOLERATING PO DIET - Current Medication List Current Medications: Active Medications Acetaminophen (Tylenol -) 650 mg PO Q6H PRN PRN Reason: FEVER OR PAIN Last Admin: 09/27/16 07:08 Dose: 650 mg Albuterol/Ipratropium (Duoneb -) 1 amp NEB Q6H PRN PRN Reason: SHORTNESS OF BREATH Last Admin: 09/27/16 17:01 Dose: 1 amp Amlodipine Besylate (Norvasc -) 10 mg PO DAILY [facility] Last Admin: 09/28/16 10:01 Dose: 10 mg Aspirin (Ecotrin -) 81 mg PO DAILY [facility] Last Admin: 09/28/16 10:01 Dose: 81 mg Calcium Acetate (Phoslo -) 667 mg PO TIDCM [facility] Last Admin: 09/28/16 11:29 Dose: 667 mg Doxazosin Mesylate (Cardura -) 4 mg PO DAILY [facility] Last Admin: 09/28/16 11:17 Dose: 4 mg Duloxetine HCl (Cymbalta -) 30 mg PO DAILY [facility] Last Admin: 09/28/16 10:01 Dose: 30 mg Epoetin Joe (Procrit -) 8,000 unit SQ MOWEFR [facility] Ferrous Sulfate (Feosol -) 325 mg PO DAILY [facility] Last Admin: 09/28/16 10:01 Dose: 325 mg Folic Acid (Folic Acid -) 1 mg PO DAILY [facility] Last Admin: 09/28/16 10:00 Dose: 1 mg Ceftriaxone Sodium (Rocephin 2gm Ivpb (Pre-Docked)) 100 mls @ 200 mls/hr IVPB DAILY [facility] Last Admin: 09/28/16 11:29 Dose: 200 mls/hr Insulin Aspart (Novolog Vial Sliding Scale -) 1 vial SQ ACHS [facility] PRN Reason: Protocol Last Admin: 09/28/16 11:36 Dose: Not Given Insulin Detemir (Levemir Vial) 20 units SQ [facility] Last Admin: 09/27/16 21:01 Dose: Not Given Metoprolol Tartrate (Lopressor -) 50 mg PO BID [facility] Last Admin: 09/28/16 10:03 Dose: 50 mg Mirtazapine (Remeron -) 30 mg PO HS [facility] Last Admin: 09/27/16 21:02 Dose: 30 mg Oxycodone HCl (Roxicodone -) 5 mg PO Q6H PRN PRN Reason: PAIN Last Admin: 09/28/16 05:40 Dose: 5 mg Pregabalin (Lyrica -) 100 mg PO BID [facility] Last Admin: 09/28/16 10:00 Dose: 100 mg Sodium Bicarbonate (Sodium Bicarbonate -) 650 mg PO DAILY [facility] Last Admin: 09/28/16 10:00 Dose: 650 mg Trazodone HCl (Desyrel -) 300 mg PO [facility] - Objective Vital Signs: Vital Signs Temperature 98 F 09/28/16 07:27 Pulse Rate 83 09/28/16 07:27 Respiratory Rate 22 09/28/16 09:00 Blood Pressure 159/88 09/28/16 07:27 O2 Sat by Pulse Oximetry (%) 94 L 09/28/16 09:00 Constitutional: Yes: Mild Distress Eyes: Yes: WNL HENT: Yes: WNL Neck: Yes: WNL Cardiovascular: Yes: WNL Respiratory: Yes: WNL Gastrointestinal: Yes: WNL Genitourinary: Yes: WNL Musculoskeletal: Yes: Muscle Weakness Extremities: Yes: Other Edema: No Peripheral Pulses WNL: Yes Integumentary: Yes: WNL Wound/Incision: Yes: Clean/Dry Neurological: Yes: WNL ...Motor Strength: WNL Psychiatric: Yes: WNL Labs: CBC, BMP 09/28/16 05:10 09/28/16 05:10 Assessment/Plan ACUTE ON CHRONIC RENAL FAILURE WITH HYPERKALEMIA RENAL CONSULT, POTASSIUM 5.4 TODAY LASIX/D50/INSULIN/KAYEXALATE GIVEN CHECK LABS THIS AFTERNOON CHF ON LASIX CHECK ECHO 2D FOR EF5 CARDIOLOGY EVAL ICU MONITORING FOR NOW
[2016-09-28] MEDS ORDERED: ALBUTEROL SO4 2.5/IPRATROPIUM 0.5 INH SOL 3 ML VIAL.NEB. NEB PRN (12:21)
--- NOTE | 2016-09-28 12:49 | PN ---
Physical Exam: SUBJECTIVE: Patient seen and examined. He is feeling good today, no complaints, no overnight events. OBJECTIVE: Vital Signs Period Temp Pulse Resp BP Sys/Gutierrez Pulse Ox Last 24 Hr 98 F-98.3 F 73-83 22-24 137-159/72-96 92-99 GENERAL: The patient is awake, alert, and fully oriented, in no acute distress. HEAD: Normal with no signs of trauma. EYES: extraocular movements intact, sclera anicteric, conjunctiva clear. ENT: oropharynx clear without exudates, moist mucous membranes. NECK: Trachea midline, full range of motion, supple. LUNGS: Breath sounds equal, clear to auscultation bilaterally, no wheezes, no crackles, no accessory muscle use. HEART: Regular rate and rhythm, S1, S2 without murmur, rub or gallop. ABDOMEN: Soft, nontender, nondistended, normoactive bowel sounds, no guarding, no rebound, no hepatosplenomegaly, no masses. EXTREMITIES: 2+ pulses, warm, well-perfused, no edema, left MTP amputated, wound vac draining, right foot, multiple deformities and toe amputations. NEUROLOGICAL: No facial asymmetry, normal speech, gait not observed. PSYCH: Normal mood, normal affect. SKIN: Warm, dry, normal turgor, no rashes. Laboratory Results - last 24 hr 09/27/16 09/27/16 09/27/16 12:46 16:35 17:16 WBC RBC Hgb Hct MCV MCHC RDW Plt Count MPV Sodium 139 Potassium 6.3 H* Chloride 107 Carbon Dioxide 23 Anion Gap 9 BUN 44 H Creatinine 2.9 H Creat Clearance w eGFR 22.23 POC Glucometer 163.57244 259.47440 Random Glucose 208 H D Calcium 7.6 L Total Bilirubin 0.4 D AST 18 D ALT 18 D Alkaline Phosphatase 126 H D Total Protein 6.8 D Albumin 2.0 L D 09/27/16 09/27/16 09/28/16 18:18 20:09 00:01 WBC RBC Hgb Hct MCV MCHC RDW Plt Count MPV Sodium 138 Potassium 5.9 H Chloride 106 Carbon Dioxide 22 Anion Gap 10 BUN 47 H Creatinine 2.9 H Creat Clearance w eGFR POC Glucometer 252.83822 254.66458 Random Glucose 217 H Calcium 7.6 L Total Bilirubin AST ALT Alkaline Phosphatase Total Protein Albumin 09/28/16 09/28/16 09/28/16 00:09 05:10 05:10 WBC 15.1 H D RBC 3.24 L Hgb 8.4 L Hct 26.2 L MCV 81.1 MCHC 32.0 RDW 27.6 H Plt Count 285 MPV 7.2 L D Sodium 138 Potassium 5.4 H Chloride 106 Carbon Dioxide 22 Anion Gap 10 BUN 44 H Creatinine 2.8 H Creat Clearance w eGFR 23.15 POC Glucometer 270.78158 Random Glucose 177 H Calcium 7.9 L Total Bilirubin 0.5 D AST 16 ALT 16 Alkaline Phosphatase 118 H Total Protein 6.8 Albumin 2.0 L Active Medications Generic Name Dose Route Start Last Admin Trade Name Freq PRN Reason Stop Dose Admin Acetaminophen 650 mg 09/28/16 12:21 Tylenol - PO Q6H PRN FEVER OR PAIN Albuterol/Ipratropium 1 amp 09/28/16 12:21 Duoneb - NEB Q6H PRN SHORTNESS OF BREATH Amlodipine Besylate 10 mg 09/29/16 10:00 Norvasc - PO DAILY [facility] Aspirin 81 mg 09/29/16 10:00 Ecotrin - PO DAILY [facility] Calcium Acetate 667 mg 09/28/16 17:30 Phoslo - PO TIDCM [facility] Doxazosin Mesylate 4 mg 09/29/16 10:00 Cardura - PO DAILY [facility] Duloxetine HCl 30 mg 09/29/16 10:00 Cymbalta - PO DAILY [facility] Ferrous Sulfate 325 mg 09/29/16 10:00 Feosol - PO DAILY [facility] Folic Acid 1 mg 09/29/16 10:00 Folic Acid - PO DAILY [facility] Ceftriaxone Sodium 100 mls @ 200 mls/hr 09/29/16 10:00 Rocephin 2gm Ivpb (Pre-Docked) IVPB DAILY [facility] Insulin Aspart 1 vial 09/28/16 16:30 Novolog Vial Sliding Scale - SQ ACHS [facility] Protocol Insulin Detemir 20 units 09/28/16 22:00 Levemir Vial SQ HS [facility] Metoprolol Tartrate 50 mg 09/28/16 22:00 Lopressor - PO BID [facility] Mirtazapine 30 mg 09/28/16 22:00 Remeron - PO HS [facility] Oxycodone HCl 5 mg 09/28/16 12:21 Roxicodone - PO Q6H PRN PAIN Pregabalin 100 mg 09/28/16 22:00 Lyrica - PO BID [facility] Sodium Bicarbonate 650 mg 09/29/16 10:00 Sodium Bicarbonate - PO DAILY [facility] Trazodone HCl 300 mg 09/28/16 22:00 Desyrel - PO HS [facility] ASSESSMENT/PLAN: The patient is a 61 year old male with a significant past medical history of DM Type II, Hypertension, CKD stage 4, chronic anemia, osteomyelitis, depression , GERD who presents to the ED BIB[place] from [place] with AMS and hypoglycemia. He is admitted to ICU for persistent hyperkalemia. Persistent Hyperkalemia no EKG changes and preserved kidney function cont. IV lasix 80mg IVPB today D10 at 42cc per hour f/u K, today 5.4 low K diet CHF: -cardiology consulted -f/u BNP that was elevated -continue lasix -f/u signs of fluid overload CKD stage 4 Baseline Cr around 2.4, now Cr 2.8 monitor BUN/Cr avoid nephrotoxic substances Hypoglycemia etiology unclear cont start D10 Trend Blood glucose Q1h IDDM: -cont monitoring BGM -ISS -Levemir 20 u HS h/o Osteomylitis s/p Vanco and Zosyn in the ED f/u wound cultures podiatry consultation Anemia continue Epogen TIW Hgb stable now DVT PPX: -SCDs GI PPX: -no indicated F/E/N: d10/hyperkalemia/Diabetic, low k Dispo: the pt will be transferred to med surg Problem List - Problems (1) Acute hyperkalemia Code(s): E87.5 - HYPERKALEMIA (2) Hypoglycemia Code(s): E16.2 - HYPOGLYCEMIA, UNSPECIFIED (3) FROYLAN (acute kidney injury) Code(s): N17.9 - ACUTE KIDNEY FAILURE, UNSPECIFIED (4) Acute on chronic diastolic heart failure Code(s): I50.33 - ACUTE ON CHRONIC DIASTOLIC (CONGESTIVE) HEART FAILURE (5) Hyperkalemia Code(s): E87.5 - HYPERKALEMIA (6) Osteoarthritis Code(s): M19.90 - UNSPECIFIED OSTEOARTHRITIS, UNSPECIFIED SITE (7) S/P amputation Code(s): Z89.9 - ACQUIRED ABSENCE OF LIMB, UNSPECIFIED (8) Vitamin D deficiency Code(s): E55.9 - VITAMIN D DEFICIENCY, UNSPECIFIED Visit type - Emergency Visit Emergency Visit: Yes ED Registration Date: 09/27/16 Care time: The patient presented to the Emergency Department on the above date and was hospitalized for further evaluation of their emergent condition. - New Patient This patient is new to me today: No - Critical Care Critical Care patient: Yes Total Critical Care Time (in minutes): 35 Critical Care Statement: The care of this patient involved high complexity decision making to prevent further life threatening deterioration of the patient 's condition and/or to evalute & treat vital organ system(s) failure or risk of failure.
[2016-09-28 14:02] LABS: ALBUMIN 1.8 g/dl (3.4-5.0); BILIRUBIN,TOTAL 0.3 mg/dL (0.2-1.0); CALCIUM 7.4 mg/dL (8.5-10.1); COCKROFT - GAULT 39.12; CREATININE 2.8 mg/dL (0.7-1.3); TOT PROT 6.1 g/dl (6.4-8.2)
--- NOTE | 2016-09-28 15:23 | PN ---
Teaching Attending Note Name of Resident: Shahnaz Almonte ATTENDING PHYSICIAN STATEMENT I saw and evaluated the patient. I reviewed the resident's note and discussed the case with the resident. I agree with the resident's findings and plan as documented. SUBJECTIVE: Patient seen and examined in the ICU. Awake and alert. Some discomfort in leg/ foot. No CP or SOB. Intake & Output 09/25/16 09/26/16 09/27/16 09/28/16 23:59 23:59 23:59 23:59 Intake Total 1612 Output Total 700 800 Balance 912 -800 Weight 209 lb 220 lb 2 oz Last Vital Signs Temp Pulse Resp BP Pulse Ox 98 F 83 22 159/88 94 L 09/28/16 07:27 09/28/16 07:27 09/28/16 09:00 09/28/16 07:27 09/28/16 09:00 Active Medications Acetaminophen (Tylenol -) 650 mg PO Q6H PRN PRN Reason: FEVER OR PAIN Albuterol/Ipratropium (Duoneb -) 1 amp NEB Q6H PRN PRN Reason: SHORTNESS OF BREATH Amlodipine Besylate (Norvasc -) 10 mg PO DAILY [facility] Aspirin (Ecotrin -) 81 mg PO DAILY [facility] Calcium Acetate (Phoslo -) 667 mg PO TIDCM [facility] Doxazosin Mesylate (Cardura -) 4 mg PO DAILY [facility] Duloxetine HCl (Cymbalta -) 30 mg PO DAILY [facility] Ferrous Sulfate (Feosol -) 325 mg PO DAILY [facility] Folic Acid (Folic Acid -) 1 mg PO DAILY [facility] Ceftriaxone Sodium (Rocephin 2gm Ivpb (Pre-Docked)) 100 mls @ 200 mls/hr IVPB DAILY [facility] Insulin Aspart (Novolog Vial Sliding Scale -) 1 vial SQ ACHS [facility] PRN Reason: Protocol Insulin Detemir (Levemir Vial) 20 units SQ HS [facility] Metoprolol Tartrate (Lopressor -) 50 mg PO BID [facility] Mirtazapine (Remeron -) 30 mg PO HS [facility] Oxycodone HCl (Roxicodone -) 5 mg PO Q6H PRN PRN Reason: PAIN Pregabalin (Lyrica -) 100 mg PO BID [facility] Sodium Bicarbonate (Sodium Bicarbonate -) 650 mg PO DAILY [facility] Trazodone HCl (Desyrel -) 300 mg PO HS [facility] Gen: Awake and alert Heart: RRR Lung: decreased breath sounds at the bases Abd: soft, nontender Ext: no edema, (+) VAC Laboratory Results - last 24 hr 09/27/16 09/27/16 09/27/16 16:35 17:16 18:18 WBC RBC Hgb Hct MCV MCHC RDW Plt Count MPV Sodium 139 Potassium 6.3 H* Chloride 107 Carbon Dioxide 23 Anion Gap 9 BUN 44 H Creatinine 2.9 H Creat Clearance w eGFR 22.23 POC Glucometer [phone] Random Glucose 208 H D Calcium 7.6 L Total Bilirubin 0.4 D AST 18 D ALT 18 D Alkaline Phosphatase 126 H D Total Protein 6.8 D Albumin 2.0 L D 09/27/16 09/28/16 09/28/16 20:09 00:01 00:09 WBC RBC Hgb Hct MCV MCHC RDW Plt Count MPV Sodium 138 Potassium 5.9 H Chloride 106 Carbon Dioxide 22 Anion Gap 10 BUN 47 H Creatinine 2.9 H Creat Clearance w eGFR POC Glucometer [phone] Random Glucose 217 H Calcium 7.6 L Total Bilirubin AST ALT Alkaline Phosphatase Total Protein Albumin 09/28/16 09/28/16 09/28/16 05:10 05:10 13:26 WBC 15.1 H D RBC 3.24 L Hgb 8.4 L Hct 26.2 L MCV 81.1 MCHC 32.0 RDW 27.6 H Plt Count 285 MPV 7.2 L D Sodium 138 138 Potassium 5.4 H 5.0 Chloride 106 106 Carbon Dioxide 22 24 Anion Gap 10 8 BUN 44 H 45 H Creatinine 2.8 H 2.8 H Creat Clearance w eGFR 23.15 23.15 POC Glucometer Random Glucose 177 H 207 H Calcium 7.9 L 7.4 L Total Bilirubin 0.5 D 0.3 D AST 16 10 L D ALT 16 14 Alkaline Phosphatase 118 H 105 Total Protein 6.8 6.1 L Albumin 2.0 L 1.8 L ASSESSMENT AND PLAN: Altered Mental Status improving Hypoglycemia Hyperkalemia CKD DM Anemia Osteomyelitis - continue medical therapy for hyperkalemia - kayexalate - monitor BGM, BMP closely - IV lasix - monitor urine output, creatinine - VAC care per surgery Critical care time spent in reviewing chart, evaluating patient and formulating plan [address] Butt
--- NOTE | 2016-09-28 16:58 | PN ---
Progress Note, Physician Chief Complaint: Cough Transferred from ICU History of Present Illness: 61 year old male with past medical history of DM Type II, Hypertension, anemia , Peripheral Disease, Osteomyelitis (08/2014), Depression, GERD who presents to the ED with AMS. He was found hypoxic and lethargic, with BG of 70 and Hbg of 7.1. At initial presentation foud to have profound hypoglycemia and non-verbal. Mental status normal after glucose. He was recently admitted with severe anemia requiring multiple transfusions, heart failure with echocardiogram documenting normal LV function and valvular function. He is non-ambulatory, describes no dyspnea presently and has no chest pain - Current Medication List Current Medications: Active Medications Acetaminophen (Tylenol -) 650 mg PO Q6H PRN PRN Reason: FEVER OR PAIN Albuterol/Ipratropium (Duoneb -) 1 amp NEB Q6H PRN PRN Reason: SHORTNESS OF BREATH Amlodipine Besylate (Norvasc -) 10 mg PO DAILY [facility] Aspirin (Ecotrin -) 81 mg PO DAILY [facility] Calcium Acetate (Phoslo -) 667 mg PO TIDCM [facility] Doxazosin Mesylate (Cardura -) 4 mg PO DAILY [facility] Duloxetine HCl (Cymbalta -) 30 mg PO DAILY [facility] Ferrous Sulfate (Feosol -) 325 mg PO DAILY [facility] Folic Acid (Folic Acid -) 1 mg PO DAILY [facility] Ceftriaxone Sodium (Rocephin 2gm Ivpb (Pre-Docked)) 100 mls @ 200 mls/hr IVPB DAILY [facility] Insulin Aspart (Novolog Vial Sliding Scale -) 1 vial SQ ACHS [facility] PRN Reason: Protocol Last Admin: 09/28/16 16:45 Dose: 4 units Insulin Detemir (Levemir Vial) 20 units SQ HS [facility] Metoprolol Tartrate (Lopressor -) 50 mg PO BID [facility] Mirtazapine (Remeron -) 30 mg PO HS [facility] Oxycodone HCl (Roxicodone -) 5 mg PO Q6H PRN PRN Reason: PAIN Pregabalin (Lyrica -) 100 mg PO BID [facility] Sodium Bicarbonate (Sodium Bicarbonate -) 650 mg PO DAILY [facility] Trazodone HCl (Desyrel -) 300 mg PO HS [facility] - Objective Vital Signs: Vital Signs Temperature 98 F 09/28/16 07:27 Pulse Rate 83 09/28/16 07:27 Respiratory Rate 22 09/28/16 09:00 Blood Pressure 159/88 09/28/16 07:27 O2 Sat by Pulse Oximetry (%) 94 L 09/28/16 09:00 Constitutional: Yes: Well Nourished, No Distress Eyes: Yes: WNL HENT: Yes: WNL Cardiovascular: Yes: Regular Rate and Rhythm Respiratory: Yes: Regular, CTA Bilaterally Gastrointestinal: Yes: Normal Bowel Sounds Edema: No Labs: CBC, BMP 09/28/16 05:10 Problem List - Problems (1) Acute on chronic diastolic heart failure Code(s): I50.33 - ACUTE ON CHRONIC DIASTOLIC (CONGESTIVE) HEART FAILURE (2) Hyperkalemia Code(s): E87.5 - HYPERKALEMIA (3) Chronic renal insufficiency, stage III (moderate) Code(s): N18.3 - CHRONIC KIDNEY DISEASE, STAGE 3 (MODERATE) Assessment/Plan Echocardiogram with normal LV function and no valvular pathology. Currently not hypoxic or dyspnec and CXR shows small effusions. BNP chronically elevated and not significantly above baseline elevations. Likely has chronic heart failure with preserved EF due to DM and chronic HTN with CKD. Add Lasix 40mg PO daily. Hypertension control Will see as needed.
--- NOTE | 2016-09-28 17:10 | PN ---
Progress Note, Physician Chief Complaint: f/u of chronic multifocal osteomyelitis of the left foot with a mal perforans ulcer medial aspect Left foot. Steeped down from intensive care today in isolation History of Present Illness: S/P incision and drainage of the left medial foot, osseous biopsies, and then osseousdebridement and implantation of biodegradable anitbiotic bead (Simulans) of the left foot during the immediate prior hospitalization. 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 Managed as outpatient at [place], [place] - Current Medication List Current Medications: Active Medications Acetaminophen (Tylenol -) 650 mg PO Q6H PRN PRN Reason: FEVER OR PAIN Albuterol/Ipratropium (Duoneb -) 1 amp NEB Q6H PRN PRN Reason: SHORTNESS OF BREATH Amlodipine Besylate (Norvasc -) 10 mg PO DAILY [facility] Aspirin (Ecotrin -) 81 mg PO DAILY [facility] Calcium Acetate (Phoslo -) 667 mg PO TIDCM [facility] Doxazosin Mesylate (Cardura -) 4 mg PO DAILY [facility] Duloxetine HCl (Cymbalta -) 30 mg PO DAILY [facility] Ferrous Sulfate (Feosol -) 325 mg PO DAILY [facility] Folic Acid (Folic Acid -) 1 mg PO DAILY [facility] Ceftriaxone Sodium (Rocephin 2gm Ivpb (Pre-Docked)) 100 mls @ 200 mls/hr IVPB DAILY [facility] Insulin Aspart (Novolog Vial Sliding Scale -) 1 vial SQ ACHS [facility] PRN Reason: Protocol Last Admin: 09/28/16 16:45 Dose: 4 units Insulin Detemir (Levemir Vial) 20 units SQ HS [facility] Metoprolol Tartrate (Lopressor -) 50 mg PO BID [facility] Mirtazapine (Remeron -) 30 mg PO HS [facility] Oxycodone HCl (Roxicodone -) 5 mg PO Q6H PRN PRN Reason: PAIN Pregabalin (Lyrica -) 100 mg PO BID [facility] Sodium Bicarbonate (Sodium Bicarbonate -) 650 mg PO DAILY [facility] Trazodone HCl (Desyrel -) 300 mg PO HS [facility] - Objective Vital Signs: Vital Signs Temperature 36.6 C 09/28/16 07:27 Pulse Rate 83 09/28/16 07:27 Respiratory Rate 22 09/28/16 09:00 Blood Pressure 159/88 09/28/16 07:27 O2 Sat by Pulse Oximetry (%) 94 L 09/28/16 09:00 Constitutional: Yes: Well Nourished, No Distress Cardiovascular: Yes: WNL Respiratory: Yes: Regular Extremities: Yes: Amputation, Deformity Edema: Yes Edema: LLE: 2+, RLE: 1+ Peripheral Pulses WNL: Yes Peripheral Pulses: Left Doralis Pedis: 1+, Right Dorsalis Pedis: 1+ Integumentary: Yes: Incision, Skin Tear Wound/Incision: Yes: Clean/Dry, Dressing Dry and Intact ([facility] Wound VAC functioning properly) Neurological: Yes: Loss of Sensation, Numbness, Paresthesia, Tingling ...Motor Strength: WNL Psychiatric: Yes: WNL, Oriented Additional Findings/Remarks: As stated before., patient will need a debridement but is not urgent. Would prefer ambulatory or bedside as the wound is very well granulated. If discharged , will attend at the [facility] at [facility] or may do bedside Saturday if still an inpatient. Will order radiographs to assess osteomyelitis Labs: CBC, BMP 09/28/16 05:10
[2016-09-28 17:15] LABS: ALBUMIN 1.7 g/dl (3.4-5.0); BILIRUBIN,TOTAL 0.3 mg/dL (0.2-1.0); CALCIUM 7.5 mg/dL (8.5-10.1); COCKROFT - GAULT 37.77; CREATININE 2.9 mg/dL (0.7-1.3)
[2016-09-28] MEDS ORDERED: traZODone HCL 50 MG TABLET (FP) ONE (20:53)
[2016-09-28] MEDS: MIRTAZAPINE 15 MG TABLET (FP) PO SCH (21:12)
[2016-09-28] MEDS: traZODone HCL 100 MG TABLET (FP) PO SCH (21:13)
[2016-09-28] MEDS ORDERED: traZODone HCL 100 MG TABLET (FP) PO SCH (22:00)
[2016-09-28] MEDS ORDERED: INSULIN DETEMIR 100 UNITS/ML MDV SQ SCH (22:00)
[2016-09-29] MEDS ORDERED: DEXTROSE 50%-WATER 50 ML DISP.SYRIN ONE (05:50)
[2016-09-29] MEDS: INSULIN SLIDING SCALE (NOVOLOG) 1 VIAL SQ SCH ×4 (06:01→21:48)
[2016-09-29] MEDS ORDERED: DEXTROSE 50%-WATER - 25 GM/50 ML VIAL IVPUSH ONE (06:15)
--- NOTE | 2016-09-29 07:34 | PN ---
Progress Note (short form) - Note Progress Note: Renal Follow up for CKD/Hyperkalemia Pt seen and examined in the ICU awake and alert feels fatigued today no sob, chest pain, abd pain N/V/D Vital Signs Temperature 98.3 F 09/28/16 17:16 Pulse Rate 79 09/29/16 06:00 Respiratory Rate 20 09/29/16 06:00 Blood Pressure 155/78 09/29/16 06:00 O2 Sat by Pulse Oximetry (%) 95 09/28/16 21:00 Intake & Output 09/26/16 09/27/16 09/28/16 09/29/16 23:59 23:59 23:59 23:59 Intake Total 1612 400 Output Total 700 1500 550 Balance 912 -1100 -550 Weight 209 lb 220 lb 2 oz Gen: NAD, awake and alert CVS: RRR, No M/R Lungs: CTA, no rales or wheeze Abd: soft NT/ND Ext: Left foot TMA, Drain in place CBC, BMP 09/28/16 05:10 09/28/16 15:30 Current Medications Acetaminophen (Tylenol -) 650 mg PO Q6H PRN PRN Reason: FEVER OR PAIN Albuterol/Ipratropium (Duoneb -) 1 amp NEB Q6H PRN PRN Reason: SHORTNESS OF BREATH Amlodipine Besylate (Norvasc -) 10 mg PO DAILY [facility] Aspirin (Ecotrin -) 81 mg PO DAILY [facility] Calcium Acetate (Phoslo -) 667 mg PO TIDCM [facility] Last Admin: 09/28/16 17:44 Dose: 667 mg Doxazosin Mesylate (Cardura -) 4 mg PO DAILY [facility] Duloxetine HCl (Cymbalta -) 30 mg PO DAILY [facility] Ferrous Sulfate (Feosol -) 325 mg PO DAILY [facility] Folic Acid (Folic Acid -) 1 mg PO DAILY [facility] Ceftriaxone Sodium (Rocephin 2gm Ivpb (Pre-Docked)) 100 mls @ 200 mls/hr IVPB DAILY [facility] Insulin Aspart (Novolog Vial Sliding Scale -) 1 vial SQ ACHS [facility] PRN Reason: Protocol Last Admin: 09/29/16 06:01 Dose: Not Given Insulin Detemir (Levemir Vial) 20 units SQ HS [facility] Last Admin: 09/28/16 21:17 Dose: 20 units Metoprolol Tartrate (Lopressor -) 50 mg PO BID [facility] Last Admin: 09/28/16 21:12 Dose: 50 mg Mirtazapine (Remeron -) 30 mg PO HS [facility] Last Admin: 09/28/16 21:12 Dose: 30 mg Oxycodone HCl (Roxicodone -) 5 mg PO Q6H PRN PRN Reason: PAIN Last Admin: 09/28/16 21:22 Dose: 5 mg Pregabalin (Lyrica -) 100 mg PO BID [facility] Last Admin: 09/28/16 21:12 Dose: 100 mg Sodium Bicarbonate (Sodium Bicarbonate -) 650 mg PO DAILY [facility] Trazodone HCl (Desyrel -) 300 mg PO HS [facility] Last Admin: 09/28/16 21:13 Dose: 300 mg A/P 61 year old gentleman with PMhx of CKD Stage 4 with subnephrotic proteinuriea, IDDM, PVD, Chronic Anemia who presented with severe hypoglycemia and AMS and found to have persistent hyperkalemia. Pt s/p recent admission for Acute Resp failure/Anemia/FROYLAN. #Hyperkalemia improved, todays labs pending continue low k diet #CKD stage 4 BUN/Cr stable no acute indication for [employer] at this time lasix as needed #Hypoglycemia now resolved #Osteomylitis/Suepcted PNA on CXR s/p Vanco and Zosyn in the ED continue Ceftriaxone as we presribed from last discharge #Anemia/CKD related anemia continue Epogen TIW Thank you Will follow Miguel Jansen DO
[2016-09-29 08:01] LABS: BASOPHIL 0.5 % (0-2.0); MCHC 32.1 g/dl (32.0-35.9); MEAN CELL VOLUME 80.9 fl (80-96); MEAN PLT VOLUME 8.3 fl (7.5-11.1); NEUTROPHILS 77.7 % (42.8-82.8); PLATELET COUNT 317 K/MM3 (134-434); RDW 27.4 % (11.9-15.9); WHITE BLOOD COUNT 8.9 K/mm3 (4.0-10.0)
[2016-09-29] MEDS: DEXTROSE 10%-WATER - 1,000 ML IV SCH (08:19)
[2016-09-29] MEDS: CALCIUM ACETATE 667 MG CAPSULE (FP) PO SCH ×3 (08:50→17:36)
[2016-09-29 08:58] LABS: ALBUMIN 2.1 g/dl (3.4-5.0); BILIRUBIN,TOTAL 0.3 mg/dL (0.2-1.0); CALCIUM 7.9 mg/dL (8.5-10.1); COCKROFT - GAULT 36.51; MAGNESIUM 1.6 mg/dL (1.8-2.4); PHOSPHOROUS 4.7 mg/dL (2.5-4.9); TOT PROT 7.2 g/dl (6.4-8.2)
--- NOTE | 2016-09-29 09:07 | PN ---
Progress Note, Physician History of Present Illness: NO COMPLAINTS - Current Medication List Current Medications: Active Medications Acetaminophen (Tylenol -) 650 mg PO Q6H PRN PRN Reason: FEVER OR PAIN Albuterol/Ipratropium (Duoneb -) 1 amp NEB Q6H PRN PRN Reason: SHORTNESS OF BREATH Amlodipine Besylate (Norvasc -) 10 mg PO DAILY [facility] Aspirin (Ecotrin -) 81 mg PO DAILY [facility] Calcium Acetate (Phoslo -) 667 mg PO TIDCM [facility] Last Admin: 09/28/16 17:44 Dose: 667 mg Doxazosin Mesylate (Cardura -) 4 mg PO DAILY [facility] Duloxetine HCl (Cymbalta -) 30 mg PO DAILY [facility] Ferrous Sulfate (Feosol -) 325 mg PO DAILY [facility] Folic Acid (Folic Acid -) 1 mg PO DAILY [facility] Ceftriaxone Sodium (Rocephin 2gm Ivpb (Pre-Docked)) 100 mls @ 200 mls/hr IVPB DAILY [facility] Insulin Aspart (Novolog Vial Sliding Scale -) 1 vial SQ ACHS [facility] PRN Reason: Protocol Last Admin: 09/29/16 06:01 Dose: Not Given Insulin Detemir (Levemir Vial) 20 units SQ HS [facility] Last Admin: 09/28/16 21:17 Dose: 20 units Metoprolol Tartrate (Lopressor -) 50 mg PO BID [facility] Last Admin: 09/28/16 21:12 Dose: 50 mg Mirtazapine (Remeron -) 30 mg PO HS [facility] Last Admin: 09/28/16 21:12 Dose: 30 mg Oxycodone HCl (Roxicodone -) 5 mg PO Q6H PRN PRN Reason: PAIN Last Admin: 09/28/16 21:22 Dose: 5 mg Pregabalin (Lyrica -) 100 mg PO BID [facility] Last Admin: 09/28/16 21:12 Dose: 100 mg Sodium Bicarbonate (Sodium Bicarbonate -) 650 mg PO DAILY [facility] Trazodone HCl (Desyrel -) 300 mg PO HS [facility] Last Admin: 09/28/16 21:13 Dose: 300 mg - Objective Vital Signs: Vital Signs Temperature 98.3 F 09/28/16 17:16 Pulse Rate 79 09/29/16 06:00 Respiratory Rate 20 09/29/16 06:00 Blood Pressure 155/78 09/29/16 06:00 O2 Sat by Pulse Oximetry (%) 95 09/28/16 21:00 Cardiovascular: Yes: Regular Rate and Rhythm Respiratory: Yes: Regular, CTA Bilaterally Gastrointestinal: Yes: Normal Bowel Sounds, Soft Labs: CBC, BMP 09/29/16 06:30 09/29/16 06:30 Problem List - Problems (1) Hypoglycemia Assessment/Plan: MONITOR INTAKE MONITOR BGM ENDO CONSULT Code(s): E16.2 - HYPOGLYCEMIA, UNSPECIFIED (2) Pneumonia Assessment/Plan: IV ABX Code(s): J18.9 - PNEUMONIA, UNSPECIFIED ORGANISM (3) 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 Assessment/Plan: ABOVE Code(s): E11.9 - TYPE 2 DIABETES MELLITUS WITHOUT COMPLICATIONS Qualifiers: 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 type: type 2 (4) Osteomyelitis Assessment/Plan: IV ABX Code(s): M86.9 - OSTEOMYELITIS, UNSPECIFIED
[2016-09-29] MEDS: PREGABALIN 50 MG CAPSULE PO SCH ×2 (09:49→21:49)
[2016-09-29] MEDS: CEFTRIAXONE 100 ML IVPB SCH (09:49)
[2016-09-29] MEDS: METOPROLOL TARTRATE 50 MG TABLET (FP) PO SCH ×2 (09:50→21:49)
[2016-09-29] MEDS: SODIUM BICARBONATE 650 MG TABLET PO SCH (09:50)
[2016-09-29] MEDS: FERROUS SO4 325 MG TABLET (FP) PO SCH (09:50)
[2016-09-29] MEDS: ASPIRIN COATED 81 MG TABLET.EC PO SCH (09:50)
[2016-09-29] MEDS: FOLIC ACID 1 MG TABLET (FP) PO SCH (09:50)
[2016-09-29] MEDS: amLODIPine BESYLATE 10 MG TABLET (FP) PO SCH (09:50)
[2016-09-29] MEDS: DULoxetine HCL 30 MG CAPSULE.DR (FP) PO SCH (09:51)
[2016-09-29] MEDS: DOXAZOSIN MESYLATE 4 MG TABLET PO SCH (09:51)
[2016-09-29] MEDS ORDERED: PT OWN MED DRAWER 7, Y5N ONE (11:58)
[2016-09-29] MEDS ORDERED: INSULIN (NOVOLOG) ASPART 100 UNITS/ML 10ML VIAL ONE (17:21)
--- NOTE | 2016-09-29 19:05 | PN ---
Progress Note, Physician Chief Complaint: f/u of chronic multifocal osteomyelitis of the left foot with a mal perforans ulcer medial aspect Left foot. Steeped down from intensive care today in isolation History of Present Illness: S/P incision and drainage of the left medial foot, osseous biopsies, and then osseousdebridement and implantation of biodegradable anitbiotic bead (Simulans) of the left foot during the immediate prior hospitalization. 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 Managed as outpatient at [place], [place] - Current Medication List Current Medications: Active Medications Acetaminophen (Tylenol -) 650 mg PO Q6H PRN PRN Reason: FEVER OR PAIN Albuterol/Ipratropium (Duoneb -) 1 amp NEB Q6H PRN PRN Reason: SHORTNESS OF BREATH Amlodipine Besylate (Norvasc -) 10 mg PO DAILY [facility] Last Admin: 09/29/16 09:50 Dose: 10 mg Aspirin (Ecotrin -) 81 mg PO DAILY [facility] Last Admin: 09/29/16 09:50 Dose: 81 mg Calcium Acetate (Phoslo -) 667 mg PO TIDCM [facility] Last Admin: 09/29/16 17:36 Dose: 667 mg Doxazosin Mesylate (Cardura -) 4 mg PO DAILY [facility] Last Admin: 09/29/16 09:51 Dose: 4 mg Duloxetine HCl (Cymbalta -) 30 mg PO DAILY [facility] Last Admin: 09/29/16 09:51 Dose: 30 mg Ferrous Sulfate (Feosol -) 325 mg PO DAILY [facility] Last Admin: 09/29/16 09:50 Dose: 325 mg Folic Acid (Folic Acid -) 1 mg PO DAILY [facility] Last Admin: 09/29/16 09:50 Dose: 1 mg Ceftriaxone Sodium (Rocephin 2gm Ivpb (Pre-Docked)) 100 mls @ 200 mls/hr IVPB DAILY [facility] Last Admin: 09/29/16 09:49 Dose: 200 mls/hr Insulin Aspart (Novolog Vial Sliding Scale -) 1 vial SQ ACHS [facility] PRN Reason: Protocol Last Admin: 09/29/16 17:36 Dose: 6 units Insulin Detemir (Levemir Vial) 18 units SQ AM [facility] Metoprolol Tartrate (Lopressor -) 50 mg PO BID [facility] Last Admin: 09/29/16 09:50 Dose: 50 mg Mirtazapine (Remeron -) 30 mg PO HS [facility] Last Admin: 09/28/16 21:12 Dose: 30 mg Oxycodone HCl (Roxicodone -) 5 mg PO Q6H PRN PRN Reason: PAIN Last Admin: 09/28/16 21:22 Dose: 5 mg Pregabalin (Lyrica -) 100 mg PO BID [facility] Last Admin: 09/29/16 09:49 Dose: 100 mg Sodium Bicarbonate (Sodium Bicarbonate -) 650 mg PO DAILY [facility] Last Admin: 09/29/16 09:50 Dose: 650 mg Trazodone HCl (Desyrel -) 300 mg PO HS [facility] Last Admin: 09/28/16 21:13 Dose: 300 mg - Objective Vital Signs: Vital Signs Temperature 36.6 C 09/29/16 16:30 Pulse Rate 76 09/29/16 16:30 Respiratory Rate 20 09/29/16 16:30 Blood Pressure 136/67 09/29/16 16:30 O2 Sat by Pulse Oximetry (%) 95 09/29/16 09:00 Constitutional: Yes: Well Nourished, No Distress, Calm Cardiovascular: Yes: WNL ...Rectal Exam: Yes: Deferred Genitourinary: Yes: WNL Breast(s): Yes: WNL Extremities: Yes: Amputation Edema: Yes Edema: LLE: 1+ Peripheral Pulses WNL: Yes Peripheral Pulses: Left Doralis Pedis: 2+, Right Dorsalis Pedis: 2+ Integumentary: Yes: Bruising, Incision, Skin Tear Wound/Incision: Yes: Dressing Dry and Intact, Excoriated, Unapproximated Neurological: Yes: Loss of Sensation, Numbness, Tingling ...Motor Strength: WNL Psychiatric: Yes: WNL, Alert, Oriented Additional Findings/Remarks: Informed patient that the radiographs do not show any significant advance of the previous diagnosed osteomyelitis. If patient is still an inpatient early next week, MIGHT consider an inpatient debridement otherwise may wait until an outpatient as wound is fairly well granulated although will need debridement. 25 minutes on morgan attending patient discussing with Phoebe Labs: CBC, BMP 09/29/16 06:30 09/29/16 06:30 - ....Imaging X-ray: Report Reviewed, Image Reviewed (Stable osseous structures with no appreciable increase in osteolysis or periosteal proliferation)
[2016-09-29] MEDS ORDERED: traZODone HCL 50 MG TABLET (FP) ONE (20:58)
[2016-09-29] MEDS: MIRTAZAPINE 15 MG TABLET (FP) PO SCH (21:50)
[2016-09-29] MEDS: traZODone HCL 100 MG TABLET (FP) PO SCH (21:50)
[2016-09-29] MEDS: oxyCODONE HCL 5 MG TABLET PO PRN (22:18)
[2016-09-30] MEDS: INSULIN SLIDING SCALE (NOVOLOG) 1 VIAL SQ SCH ×4 (06:40→22:01)
[2016-09-30] MEDS ORDERED: INSULIN (NOVOLOG) ASPART 100 UNITS/ML 10ML VIAL ONE (06:50)
[2016-09-30] MEDS ORDERED: PT OWN MED DRAWER 7, Y5N ONE (06:51)
[2016-09-30] MEDS ORDERED: INSULIN DETEMIR 100 UNITS/ML MDV SQ SCH ×2 (07:00→20:04)
--- NOTE | 2016-09-30 07:51 | PN ---
Progress Note (short form) - Note Progress Note: Renal Follow up for CKD/Hyperkalemia Pt seen and examined in the ICU no acute complaints Vital Signs Temperature 98.7 F 09/30/16 06:23 Pulse Rate 65 09/30/16 06:23 Respiratory Rate 20 09/30/16 06:23 Blood Pressure 135/77 09/30/16 06:23 O2 Sat by Pulse Oximetry (%) 96 09/29/16 21:00 Intake & Output 09/27/16 09/28/16 09/29/16 09/30/16 23:59 23:59 23:59 23:59 Intake Total 2002 488 1030 360 Output Total 700 1500 1750 650 Balance 912 -1100 -160 -290 Weight 220 lb 2 oz Gen: NAD, awake and alert CVS: RRR, No M/R Lungs: CTA, no rales or wheeze Abd: soft NT/ND Ext: Left foot TMA, Drain in place todays labs pending Current Medications Acetaminophen (Tylenol -) 650 mg PO Q6H PRN PRN Reason: FEVER OR PAIN Albuterol/Ipratropium (Duoneb -) 1 amp NEB Q6H PRN PRN Reason: SHORTNESS OF BREATH Amlodipine Besylate (Norvasc -) 10 mg PO DAILY [facility] Last Admin: 09/29/16 09:50 Dose: 10 mg Aspirin (Ecotrin -) 81 mg PO DAILY [facility] Last Admin: 09/29/16 09:50 Dose: 81 mg Calcium Acetate (Phoslo -) 667 mg PO TIDCM [facility] Last Admin: 09/29/16 17:36 Dose: 667 mg Doxazosin Mesylate (Cardura -) 4 mg PO DAILY [facility] Last Admin: 09/29/16 09:51 Dose: 4 mg Duloxetine HCl (Cymbalta -) 30 mg PO DAILY [facility] Last Admin: 09/29/16 09:51 Dose: 30 mg Ferrous Sulfate (Feosol -) 325 mg PO DAILY [facility] Last Admin: 09/29/16 09:50 Dose: 325 mg Folic Acid (Folic Acid -) 1 mg PO DAILY [facility] Last Admin: 09/29/16 09:50 Dose: 1 mg Ceftriaxone Sodium (Rocephin 2gm Ivpb (Pre-Docked)) 100 mls @ 200 mls/hr IVPB DAILY [facility] Last Admin: 09/29/16 09:49 Dose: 200 mls/hr Insulin Aspart (Novolog Vial Sliding Scale -) 1 vial SQ ACHS [facility] PRN Reason: Protocol Last Admin: 09/30/16 06:40 Dose: Not Given Insulin Detemir (Levemir Vial) 18 units SQ AM [facility] Last Admin: 09/30/16 06:41 Dose: 18 units Metoprolol Tartrate (Lopressor -) 50 mg PO BID [facility] Last Admin: 09/29/16 21:49 Dose: 50 mg Mirtazapine (Remeron -) 30 mg PO HS [facility] Last Admin: 09/29/16 21:50 Dose: 30 mg Oxycodone HCl (Roxicodone -) 5 mg PO Q6H PRN PRN Reason: PAIN Last Admin: 09/29/16 22:18 Dose: 5 mg Pregabalin (Lyrica -) 100 mg PO BID [facility] Last Admin: 09/29/16 21:49 Dose: 100 mg Sodium Bicarbonate (Sodium Bicarbonate -) 650 mg PO DAILY [facility] Last Admin: 09/29/16 09:50 Dose: 650 mg Trazodone HCl (Desyrel -) 300 mg PO HS [facility] Last Admin: 09/29/16 21:50 Dose: 300 mg A/P 61 year old gentleman with PMhx of CKD Stage 4 with subnephrotic proteinuriea, IDDM, PVD, Chronic Anemia who presented with severe hypoglycemia and AMS and found to have persistent hyperkalemia. Pt s/p recent admission for Acute Resp failure/Anemia/FROYLAN. #Hyperkalemia improved todays labs pending #CKD stage 4 BUN/Cr higher then last discharge but stable pt appears evolemic continue current meds #Hypoglycemia now resolved #Osteomylitis/Suepcted PNA on CXR s/p Vanco and Zosyn in the ED continue Ceftriaxone as we presribed from last discharge surgical follow up wound care #Anemia/CKD related anemia continue Epogen TIW Thank you Will follow Miguel Jansen DO
[2016-09-30 08:43] LABS: BASOPHIL 0.6 % (0-2.0); EOSINOPHIL 5.1 % (0-4.5); MCH 26.5 pg (25.7-33.7); MCHC 32.5 g/dl (32.0-35.9); MEAN CELL VOLUME 81.6 fl (80-96); MEAN PLT VOLUME 8.5 fl (7.5-11.1); NEUTROPHILS 71.8 % (42.8-82.8); PLATELET COUNT 271 K/MM3 (134-434); RDW 26.3 % (11.9-15.9); WHITE BLOOD COUNT 10.4 K/mm3 (4.0-10.0)
[2016-09-30 08:58] LABS: CALCIUM 7.6 mg/dL (8.5-10.1); COCKROFT - GAULT 37.77; CREATININE 2.9 mg/dL (0.7-1.3); MAGNESIUM 1.8 mg/dL (1.8-2.4); PHOSPHOROUS 5.3 mg/dL (2.5-4.9)
--- NOTE | 2016-09-30 09:03 | PN ---
Progress Note, Physician History of Present Illness: NO COMPLAINTS - Current Medication List Current Medications: Active Medications Acetaminophen (Tylenol -) 650 mg PO Q6H PRN PRN Reason: FEVER OR PAIN Albuterol/Ipratropium (Duoneb -) 1 amp NEB Q6H PRN PRN Reason: SHORTNESS OF BREATH Amlodipine Besylate (Norvasc -) 10 mg PO DAILY [facility] Last Admin: 09/29/16 09:50 Dose: 10 mg Aspirin (Ecotrin -) 81 mg PO DAILY [facility] Last Admin: 09/29/16 09:50 Dose: 81 mg Calcium Acetate (Phoslo -) 667 mg PO TIDCM [facility] Last Admin: 09/29/16 17:36 Dose: 667 mg Doxazosin Mesylate (Cardura -) 4 mg PO DAILY [facility] Last Admin: 09/29/16 09:51 Dose: 4 mg Duloxetine HCl (Cymbalta -) 30 mg PO DAILY [facility] Last Admin: 09/29/16 09:51 Dose: 30 mg Ferrous Sulfate (Feosol -) 325 mg PO DAILY [facility] Last Admin: 09/29/16 09:50 Dose: 325 mg Folic Acid (Folic Acid -) 1 mg PO DAILY [facility] Last Admin: 09/29/16 09:50 Dose: 1 mg Ceftriaxone Sodium (Rocephin 2gm Ivpb (Pre-Docked)) 100 mls @ 200 mls/hr IVPB DAILY [facility] Last Admin: 09/29/16 09:49 Dose: 200 mls/hr Insulin Aspart (Novolog Vial Sliding Scale -) 1 vial SQ ACHS [facility] PRN Reason: Protocol Last Admin: 09/30/16 06:40 Dose: Not Given Insulin Detemir (Levemir Vial) 18 units SQ AM [facility] Last Admin: 09/30/16 06:41 Dose: 18 units Metoprolol Tartrate (Lopressor -) 50 mg PO BID [facility] Last Admin: 09/29/16 21:49 Dose: 50 mg Mirtazapine (Remeron -) 30 mg PO HS [facility] Last Admin: 09/29/16 21:50 Dose: 30 mg Oxycodone HCl (Roxicodone -) 5 mg PO Q6H PRN PRN Reason: PAIN Last Admin: 09/29/16 22:18 Dose: 5 mg Pregabalin (Lyrica -) 100 mg PO BID [facility] Last Admin: 09/29/16 21:49 Dose: 100 mg Sodium Bicarbonate (Sodium Bicarbonate -) 650 mg PO DAILY [facility] Last Admin: 09/29/16 09:50 Dose: 650 mg Trazodone HCl (Desyrel -) 300 mg PO HS [facility] Last Admin: 09/29/16 21:50 Dose: 300 mg - Objective Vital Signs: Vital Signs Temperature 98.7 F 09/30/16 06:23 Pulse Rate 65 09/30/16 06:23 Respiratory Rate 20 09/30/16 06:23 Blood Pressure 135/77 09/30/16 06:23 O2 Sat by Pulse Oximetry (%) 96 09/29/16 21:00 Cardiovascular: Yes: S1, S2 Respiratory: Yes: Regular, CTA Bilaterally Gastrointestinal: Yes: Normal Bowel Sounds, Soft Labs: CBC, BMP 09/30/16 06:30 09/30/16 06:30 Problem List - Problems (1) Hypoglycemia Assessment/Plan: MONITOR INTAKE MONITOR BGM ENDO CONSULT Code(s): E16.2 - HYPOGLYCEMIA, UNSPECIFIED (2) Pneumonia Assessment/Plan: IV ABX Code(s): J18.9 - PNEUMONIA, UNSPECIFIED ORGANISM (3) 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 Assessment/Plan: ABOVE Code(s): E11.9 - TYPE 2 DIABETES MELLITUS WITHOUT COMPLICATIONS Qualifiers: 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 type: type 2 (4) Osteomyelitis Assessment/Plan: IV ABX Code(s): M86.9 - OSTEOMYELITIS, UNSPECIFIED
[2016-09-30] MEDS: PREGABALIN 50 MG CAPSULE PO SCH ×2 (09:05→22:04)
[2016-09-30] MEDS: CEFTRIAXONE 100 ML IVPB SCH (09:05)
[2016-09-30] MEDS: METOPROLOL TARTRATE 50 MG TABLET (FP) PO SCH ×2 (09:05→22:04)
[2016-09-30] MEDS: CALCIUM ACETATE 667 MG CAPSULE (FP) PO SCH ×3 (09:05→17:53)
[2016-09-30] MEDS: FERROUS SO4 325 MG TABLET (FP) PO SCH (09:05)
[2016-09-30] MEDS: SODIUM BICARBONATE 650 MG TABLET PO SCH (09:05)
[2016-09-30] MEDS: amLODIPine BESYLATE 10 MG TABLET (FP) PO SCH (09:06)
[2016-09-30] MEDS: ASPIRIN COATED 81 MG TABLET.EC PO SCH (09:06)
[2016-09-30] MEDS: FOLIC ACID 1 MG TABLET (FP) PO SCH (09:06)
[2016-09-30] MEDS: DULoxetine HCL 30 MG CAPSULE.DR (FP) PO SCH (09:06)
[2016-09-30] MEDS: DOXAZOSIN MESYLATE 4 MG TABLET PO SCH (09:06)
[2016-09-30] MEDS: MIRTAZAPINE 15 MG TABLET (FP) PO SCH (22:03)
[2016-09-30] MEDS: traZODone HCL 100 MG TABLET (FP) PO SCH (22:03)
[2016-09-30] MEDS ORDERED: traZODone HCL 50 MG TABLET (FP) ONE (22:29)
[2016-09-30] MEDS: oxyCODONE HCL 5 MG TABLET PO PRN (23:13)
--- NOTE | 2016-10-01 01:32 | CONSULT ---
Consult Consult Specialty:: endocrine Referred by:: dr.[email or web address] lee Reason for Consultation:: diabetes mellitus - History of Present Illness Chief Complaint: fluctuating blood sugars History of Present Illness: 61 year old male with a significant past medical history of DM Type II, Hypertension, anemia, Peripheral Disease, Osteomyelitis (08/2014), Depression, GERD who presents to the ED with AMS. As per NH patient was last seen at baseline approximately at 5 PM, 3 hours before presenting to the ED. Patient was found hypoxic and lethargic, with BG of 70 and Hbg of 7.1. Patient presents to the ED nonverbal, and initially found to have a BG of 46 while in the ED. After 2 doses of 50 mL dextrose patient is alert and talking. Patient states that he was given insulin this morning but he did not eat anything yesterday. Surgical history: Left Transmetatarsal amputation 5 digits (2013,he admits he sometimes goes off diet yet knows he need to be aware of low sugars especially 3 am when he oftens goes low,he denies chest pain cough nausea or vomiting. - History Source History Provided By: Patient - Past Medical History FLUMER: Yes: Peripheral Neuropathy Cardio/Vascular: Yes: HTN Gastrointestinal: Yes: GERD Psych: Yes: Depression Musculoskeletal: Yes: Other (chronic pain) Rheumatology: Yes: Other (history of osteomyletis) Endocrine: Yes: Diabetes Mellitus - Past Surgical History Past Surgical History: Yes: Amputation (transmetatarsal of Left foot) - Alcohol/Substance Use Hx Alcohol Use: No Number of Drinks Daily: 2 (weekends) - Smoking History Smoking history: Never smoked Have you smoked in the past 12 months: No Aproximately how many cigarettes per day: 0 - Social History Usual Living Arrangement: [facility] ADL: Support Services History of Recent Travel: No Home Medications - Allergies Allergies/Adverse Reactions: Allergies Allergy/AdvReac Type Severity Reaction Status Date / Time shellfish derived Allergy Severe "HIVES" Verified 09/26/16 20:16 No Known Drug Allergies Allergy Verified 09/26/16 20:16 - Home Medications Home Medications: Ambulatory Orders Amlodipine Besylate [Norvasc -] 10 mg PO DAILY 11/07/14 Ascorbate Calcium [Vitamin C] 500 mg PO DAILY 11/07/14 Duloxetine HCl 30 mg PO DAILY 11/07/14 Ferrous Sulfate [Feosol] 325 mg PO DAILY 11/07/14 Folic Acid - 1 mg PO DAILY 11/07/14 Trazodone HCl 300 mg PO HS 11/07/14 Zinc Sulfate 220 mg PO DAILY 11/07/14 Doxazosin Mesylate [Cardura -] 4 mg PO DAILY #30 tablet 11/24/14 Aspirin [ASA -] 81 mg PO DAILY 03/08/16 Oxycodone HCl/Acetaminophen [Percocet 5-325 mg Tablet] 1 tab PO QID #120 tablet MDD 4 08/01/16 Mirtazapine [Remeron -] 30 mg PO HS 08/19/16 Pregabalin [Lyrica -] 100 mg PO BID [facility] 2 08/19/16 Albuterol 0.083% Nebulizer Coretta [Ventolin 0.083% Nebulizer Soln -] 1 amp NEB Q4H PRN #0 amp 09/12/16 Albuterol 2.5/Ipratropium 0.5 [Duoneb -] 1 amp NEB QIDR amp 09/12/16 Calcium Acetate [Phoslo -] 1,334 mg PO TIDCM #180 capsule 09/12/16 Ceftriaxone [Rocephin 2Gm Ivpb (Pre-Docked)] 100 ml IVPB DAILY #19 bag 09/12/16 Epoetin Joe [Procrit -] 10,000 unit SQ TUTHSA #12 ml 09/12/16 Furosemide [Lasix -] 20 mg PO DAILY #30 tablet 09/12/16 Insulin (Levemir) [Levemir Flexpen -] 20 units SQ DAILY #1 vial 09/12/16 Insulin Sliding Scale [Novolog Vial Sliding Scale -] 1 vial SQ TIDAC units Metoprolol Tartrate [Lopressor -] 50 mg PO BID tablet 09/12/16 Picc Line Flush [Picc Line Flush -] 8 ml IVPUSH PRN PRN #0 ml 09/12/16 Sodium Bicarbonate - 325 mg PO DAILY tablet 09/12/16 Family Disease History - Family Disease History Family Disease History: Diabetes: Mother Review of Systems - Review of Systems Constitutional: reports: Weakness Eyes: reports: No Symptoms HENT: reports: No Symptoms Neck: reports: No Symptoms Cardiovascular: reports: No Symptoms Respiratory: reports: Exercise Intolerance, SOB on Exertion Gastrointestinal: reports: Bloating Genitourinary: reports: No Symptoms Breasts: reports: No Symptoms Reported Musculoskeletal: reports: Muscle Pain, Muscle Cramps, Muscle Weakness Integumentary: reports: Wound Neurological: reports: Numbness, Unsteady Gait, Weakness Endocrine: reports: Unexplained Weight Loss Hematology/Lymphatic: reports: No Symptoms Physical Exam Vital Signs: Vital Signs Temperature 96.8 F L 09/30/16 22:00 Pulse Rate 85 09/30/16 22:00 Respiratory Rate 18 09/30/16 22:00 Blood Pressure 149/95 09/30/16 22:00 O2 Sat by Pulse Oximetry (%) 95 09/30/16 21:00 Constitutional: Yes: Calm Eyes: Yes: EOM Intact HENT: Yes: Normocephalic Neck: Yes: Trachea Midline Cardiovascular: Yes: Regular Rate and Rhythm Respiratory: Yes: CTA Bilaterally Gastrointestinal: Yes: Normal Bowel Sounds ...Rectal Exam: Yes: Deferred Renal/: Yes: WNL Breast(s): Yes: WNL Musculoskeletal: Yes: Muscle Weakness Extremities: Yes: Delayed Capillary Refill Edema: Yes Edema: LUE: 1+ Integumentary: Yes: Onychomycosis Wound/Incision: Yes: Draining Neurological: Yes: Alert, Oriented Labs: CBC, BMP 09/30/16 06:30 09/30/16 06:30 Problem List - Problems (1) Hypoglycemia Code(s): E16.2 - HYPOGLYCEMIA, UNSPECIFIED (2) FROYLAN (acute kidney injury) Code(s): N17.9 - ACUTE KIDNEY FAILURE, UNSPECIFIED (3) Acute hypoxemic respiratory failure Code(s): J96.01 - ACUTE RESPIRATORY FAILURE WITH HYPOXIA (4) Hyperglycemia Code(s): R73.9 - HYPERGLYCEMIA, UNSPECIFIED Assessment/Plan Current Active Problems Acute hyperkalemia (Acute) Hypoglycemia (Acute) Pneumonia (Acute) Insomnia (Chronic) diabetes mellitus ckd nephropathyr neuropathy osteomyelitis wound infection Abnormal Lab Results 09/30/16 09/30/16 06:30 06:30 WBC 10.4 H RBC 2.98 L Hgb 7.9 L D Hct 24.3 L D RDW 26.3 H Eosinophils % 5.1 H BUN 51 H Creatinine 2.9 H Random Glucose 178 H D Calcium 7.6 L Phosphorus 5.3 H Laboratory Results - last 24 hr 09/30/16 09/30/16 09/30/16 06:30 06:30 06:30 WBC 10.4 H RBC 2.98 L Hgb 7.9 L D Hct 24.3 L D MCV 81.6 MCHC 32.5 RDW 26.3 H Plt Count 271 MPV 8.5 Neutrophils % 71.8 Lymphocytes % 13.2 D Monocytes % 9.3 Eosinophils % 5.1 H Basophils % 0.6 Sodium 140 Potassium 4.9 Chloride 107 Carbon Dioxide 22 Anion Gap 11 BUN 51 H Creatinine 2.9 H POC Glucometer Random Glucose 178 H D Hemoglobin A1c % 5.9 D Calcium 7.6 L Phosphorus 5.3 H Magnesium 1.8 09/30/16 09/30/16 09/30/16 06:38 12:24 17:33 WBC RBC Hgb Hct MCV MCHC RDW Plt Count MPV Neutrophils % Lymphocytes % Monocytes % Eosinophils % Basophils % Sodium Potassium Chloride Carbon Dioxide Anion Gap BUN Creatinine POC Glucometer 207 183 170 Random Glucose Hemoglobin A1c % Calcium Phosphorus Magnesium 09/30/16 23:00 WBC RBC Hgb Hct MCV MCHC RDW Plt Count MPV Neutrophils % Lymphocytes % Monocytes % Eosinophils % Basophils % Sodium Potassium Chloride Carbon Dioxide Anion Gap BUN Creatinine POC Glucometer 244 Random Glucose Hemoglobin A1c % Calcium Phosphorus Magnesium plan: bgm qid novolg scale achs levemir 18 units am ck hb a1c
[2016-10-01] MEDS: INSULIN DETEMIR 100 UNITS/ML MDV SQ SCH (06:43)
[2016-10-01] MEDS: ACETAMINOPHEN 325 MG TABLET (FP) PO PRN ×3 (06:43→18:47)
[2016-10-01] MEDS: oxyCODONE HCL 5 MG TABLET PO PRN ×3 (06:44→18:48)
[2016-10-01] MEDS: INSULIN SLIDING SCALE (NOVOLOG) 1 VIAL SQ SCH ×5 (06:50→22:16)
[2016-10-01 08:02] LABS: BASOPHIL 0.7 % (0-2.0); EOSINOPHIL 8.1 % (0-4.5); MCH 26.1 pg (25.7-33.7); MCHC 32.4 g/dl (32.0-35.9); MEAN CELL VOLUME 80.7 fl (80-96); MEAN PLT VOLUME 7.4 fl (7.5-11.1); NEUTROPHILS 64.6 % (42.8-82.8); PLATELET COUNT 308 K/MM3 (134-434); RDW 25.9 % (11.9-15.9); WHITE BLOOD COUNT 8.6 K/mm3 (4.0-10.0)
[2016-10-01 08:16] LABS: CALCIUM 7.8 mg/dL (8.5-10.1); MAGNESIUM 1.8 mg/dL (1.8-2.4)
[2016-10-01 08:19] LABS: BILIRUBIN,TOTAL 0.5 mg/dL (0.2-1.0); COCKROFT - GAULT 39.12; CREATININE 2.8 mg/dL (0.7-1.3); PHOSPHOROUS 4.8 mg/dL (2.5-4.9); TOT PROT 6.6 g/dl (6.4-8.2)
[2016-10-01] MEDS: PREGABALIN 50 MG CAPSULE PO SCH ×2 (09:31→21:23)
[2016-10-01] MEDS: SODIUM BICARBONATE 650 MG TABLET PO SCH (09:31)
[2016-10-01] MEDS: ASPIRIN COATED 81 MG TABLET.EC PO SCH (09:31)
[2016-10-01] MEDS: METOPROLOL TARTRATE 50 MG TABLET (FP) PO SCH ×2 (09:31→21:23)
[2016-10-01] MEDS: CALCIUM ACETATE 667 MG CAPSULE (FP) PO SCH ×3 (09:31→17:34)
[2016-10-01] MEDS: FERROUS SO4 325 MG TABLET (FP) PO SCH (09:32)
[2016-10-01] MEDS: amLODIPine BESYLATE 10 MG TABLET (FP) PO SCH (09:32)
[2016-10-01] MEDS: FOLIC ACID 1 MG TABLET (FP) PO SCH (09:32)
[2016-10-01] MEDS: DULoxetine HCL 30 MG CAPSULE.DR (FP) PO SCH (09:32)
[2016-10-01] MEDS: CEFTRIAXONE 100 ML IVPB SCH (09:33)
[2016-10-01] MEDS ORDERED: PT OWN MED DRAWER 7, Y5N ONE (10:37)
[2016-10-01] MEDS ORDERED: EPOETIN ALFA 10,000 UNIT/1 ML VIAL SQ SCH (11:00)
[2016-10-01] MEDS: DOXAZOSIN MESYLATE 4 MG TABLET PO SCH (11:08)
--- NOTE | 2016-10-01 11:14 | PN ---
Progress Note (short form) - Note Progress Note: Renal Follow up for CKD/Hyperkalemia Pt seen and examined in the ICU has pain in TMA site wound vac in place Vital Signs Temperature 97.5 F L 10/01/16 06:30 Pulse Rate 66 10/01/16 06:30 Respiratory Rate 20 10/01/16 06:30 Blood Pressure 155/98 10/01/16 06:30 O2 Sat by Pulse Oximetry (%) 95 09/30/16 21:00 Intake & Output 09/28/16 09/29/16 09/30/16 10/01/16 23:59 23:59 23:59 23:59 Intake Total 400 1590 1200 200 Output Total 1500 1750 1750 Balance -1100 -160 -550 200 Gen: NAD, awake and alert CVS: RRR, No M/R Lungs: CTA, no rales or wheeze Abd: soft NT/ND Ext: Left foot TMA, Drain in place CBC, BMP 10/01/16 06:30 10/01/16 06:30 Laboratory Tests 10/01/16 10/01/16 06:30 10:21 Calcium 7.8 L Phosphorus 4.8 Magnesium 1.8 Iron Pending TIBC Pending Iron Saturation Pending Albumin 2.0 L Current Medications Acetaminophen (Tylenol -) 650 mg PO Q6H PRN PRN Reason: FEVER OR PAIN Last Admin: 10/01/16 06:43 Dose: 650 mg Albuterol/Ipratropium (Duoneb -) 1 amp NEB Q6H PRN PRN Reason: SHORTNESS OF BREATH Amlodipine Besylate (Norvasc -) 10 mg PO DAILY [facility] Last Admin: 10/01/16 09:32 Dose: 10 mg Aspirin (Ecotrin -) 81 mg PO DAILY [facility] Last Admin: 10/01/16 09:31 Dose: 81 mg Calcium Acetate (Phoslo -) 667 mg PO TIDCM [facility] Last Admin: 10/01/16 09:31 Dose: 667 mg Doxazosin Mesylate (Cardura -) 4 mg PO DAILY [facility] Last Admin: 09/30/16 09:06 Dose: 4 mg Duloxetine HCl (Cymbalta -) 30 mg PO DAILY [facility] Last Admin: 10/01/16 09:32 Dose: 30 mg Epoetin Joe (Procrit -) 8,000 unit SQ MOWEFR [facility] Ferrous Sulfate (Feosol -) 325 mg PO DAILY [facility] Last Admin: 10/01/16 09:32 Dose: 325 mg Folic Acid (Folic Acid -) 1 mg PO DAILY [facility] Last Admin: 10/01/16 09:32 Dose: 1 mg Ceftriaxone Sodium (Rocephin 2gm Ivpb (Pre-Docked)) 100 mls @ 200 mls/hr IVPB DAILY [facility] Last Admin: 10/01/16 09:33 Dose: 200 mls/hr Insulin Aspart (Novolog Vial Sliding Scale -) 1 vial SQ ACHS [facility] PRN Reason: Protocol Last Admin: 10/01/16 06:50 Dose: Not Given Insulin Detemir (Levemir Vial) 18 units SQ AM [facility] Last Admin: 10/01/16 06:43 Dose: 18 units Metoprolol Tartrate (Lopressor -) 50 mg PO BID [facility] Last Admin: 10/01/16 09:31 Dose: 50 mg Mirtazapine (Remeron -) 30 mg PO HS [facility] Last Admin: 09/30/16 22:03 Dose: 30 mg Oxycodone HCl (Roxicodone -) 5 mg PO Q6H PRN PRN Reason: PAIN Last Admin: 10/01/16 06:44 Dose: 5 mg Pregabalin (Lyrica -) 100 mg PO BID [facility] Last Admin: 10/01/16 09:31 Dose: 100 mg Sodium Bicarbonate (Sodium Bicarbonate -) 650 mg PO DAILY [facility] Last Admin: 10/01/16 09:31 Dose: 650 mg Trazodone HCl (Desyrel -) 300 mg PO [facility] Last Admin: 09/30/16 22:03 Dose: 300 mg A/P 61 year old gentleman with PMhx of CKD Stage 4 with subnephrotic proteinuriea, IDDM, PVD, Chronic Anemia who presented with severe hypoglycemia and AMS and found to have persistent hyperkalemia. Pt s/p recent admission for Acute Resp failure/Anemia/FROYLAN. 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
--- NOTE | 2016-10-01 12:25 | PN ---
Progress Note, Physician Chief Complaint: f/u of chronic multifocal osteomyelitis of the left foot with a mal perforans ulcer medial aspect Left foot. Steeped down from intensive care today in isolation History of Present Illness: Here today to assess wound and change KCI wound VAC S/P incision and drainage of the left medial foot, osseous biopsies, and then osseousdebridement and implantation of biodegradable anitbiotic bead (Simulans) of the left foot during the immediate prior hospitalization. 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 Managed as outpatient at [place], [place] - Current Medication List Current Medications: Active Medications Acetaminophen (Tylenol -) 650 mg PO Q6H PRN PRN Reason: FEVER OR PAIN Last Admin: 10/01/16 06:43 Dose: 650 mg Albuterol/Ipratropium (Duoneb -) 1 amp NEB Q6H PRN PRN Reason: SHORTNESS OF BREATH Amlodipine Besylate (Norvasc -) 10 mg PO DAILY [facility] Last Admin: 10/01/16 09:32 Dose: 10 mg Aspirin (Ecotrin -) 81 mg PO DAILY [facility] Last Admin: 10/01/16 09:31 Dose: 81 mg Calcium Acetate (Phoslo -) 667 mg PO TIDCM [facility] Last Admin: 10/01/16 09:31 Dose: 667 mg Doxazosin Mesylate (Cardura -) 4 mg PO DAILY [facility] Last Admin: 10/01/16 11:08 Dose: 4 mg Duloxetine HCl (Cymbalta -) 30 mg PO DAILY [facility] Last Admin: 10/01/16 09:32 Dose: 30 mg Epoetin Joe (Procrit -) 8,000 unit SQ MOWEFR [facility] Last Admin: 10/01/16 11:15 Dose: 8,000 unit Ferrous Sulfate (Feosol -) 325 mg PO DAILY [facility] Last Admin: 10/01/16 09:32 Dose: 325 mg Folic Acid (Folic Acid -) 1 mg PO DAILY [facility] Last Admin: 10/01/16 09:32 Dose: 1 mg Furosemide (Lasix -) 40 mg PO DAILY [facility] Ceftriaxone Sodium (Rocephin 2gm Ivpb (Pre-Docked)) 100 mls @ 200 mls/hr IVPB DAILY [facility] Last Admin: 10/01/16 09:33 Dose: 200 mls/hr Insulin Aspart (Novolog Vial Sliding Scale -) 1 vial SQ [facility] PRN Reason: Protocol Last Admin: 10/01/16 11:10 Dose: Not Given Insulin Detemir (Levemir Vial) 18 units SQ AM [facility] Last Admin: 10/01/16 06:43 Dose: 18 units Metoprolol Tartrate (Lopressor -) 50 mg PO BID [facility] Last Admin: 10/01/16 09:31 Dose: 50 mg Mirtazapine (Remeron -) [address] [facility] Last Admin: 09/30/16 22:03 Dose: 30 mg Pregabalin (Lyrica -) 100 mg PO BID [facility] Last Admin: 10/01/16 09:31 Dose: 100 mg Sodium Bicarbonate (Sodium Bicarbonate -) 650 mg PO DAILY [facility] Last Admin: 10/01/16 09:31 Dose: 650 mg Trazodone HCl (Desyrel -) [address] [facility] Last Admin: 09/30/16 22:03 Dose: 300 mg - Objective Vital Signs: Vital Signs Temperature 36.4 C L 10/01/16 06:30 Pulse Rate 66 10/01/16 06:30 Respiratory Rate 20 10/01/16 06:30 Blood Pressure 155/98 10/01/16 06:30 O2 Sat by Pulse Oximetry (%) 95 09/30/16 21:00 Constitutional: Yes: Well Nourished, No Distress Eyes: Yes: WNL HENT: Yes: WNL Cardiovascular: Yes: WNL Respiratory: Yes: WNL Extremities: Yes: Amputation Edema: LLE: 1+, RLE: Trace Peripheral Pulses WNL: Yes Peripheral Pulses: Left Doralis Pedis: 2+, Right Dorsalis Pedis: 2+ Integumentary: Yes: Erythema, Incision, Laceration, Skin Tear Wound/Incision: Yes: Dressing Dry and Intact, Dressing Removed, Reddened, Bleeding, Unapproximated Neurological: Yes: Numbness, Paresthesia, Pre-Existing Deficit, Tingling ...Motor Strength: WNL Psychiatric: Yes: WNL Additional Findings/Remarks: Patient is set for release shortly as the metabolic concerns and be pulmonary issues are now stabilized. Patient resting comfortably in bed. Appreciable decrease in the left lower limb eDema. KCI VAC was removed and the wound was inspected. Surprisingly there was only about 20% slough to the muscular level. Performed a mechanical Debridement as a selective or surgical debridement was deemed to be better performed at the [facility] wound care center when he is released. Replaced the KCI wound dressing at 125 millimeters of mercury continuous. Discussed case with nurse and discharge branch rental manager to make sure that patient is followed with me upon release to the alf facility. It was noted that most of the gentamicin and vancomycin infused antibiotic beads have been absorbed. Total time on Weinstein, discussion with staff, exceeded 30 minutes. Labs: CBC, BMP 10/01/16 06:30 10/01/16 06:30 - ....Imaging X-ray: Report Reviewed, Image Reviewed (no advance on conventional radiographs of osteomyelitis)
[2016-10-01 17:18] LABS: FERRITIN 520.57 ng/ml (16.4-293.9)
[2016-10-01] MEDS ORDERED: traZODone HCL 50 MG TABLET (FP) ONE (21:10)
[2016-10-01] MEDS: MIRTAZAPINE 15 MG TABLET (FP) PO SCH (21:23)
[2016-10-01] MEDS: traZODone HCL 100 MG TABLET (FP) PO SCH (21:28)
--- NOTE | 2016-10-01 21:42 | PN ---
Progress Note, Physician Chief Complaint: AWAKE ALERT NAD EVENTS AND NOTES REVIEWED - Current Medication List Current Medications: Active Medications Acetaminophen (Tylenol -) 650 mg PO Q6H PRN PRN Reason: FEVER OR PAIN Last Admin: 10/01/16 18:47 Dose: 650 mg Albuterol/Ipratropium (Duoneb -) 1 amp NEB Q6H PRN PRN Reason: SHORTNESS OF BREATH Amlodipine Besylate (Norvasc -) 10 mg PO DAILY [facility] Last Admin: 10/01/16 09:32 Dose: 10 mg Aspirin (Ecotrin -) 81 mg PO DAILY [facility] Last Admin: 10/01/16 09:31 Dose: 81 mg Calcium Acetate (Phoslo -) 667 mg PO TIDCM [facility] Last Admin: 10/01/16 17:34 Dose: 667 mg Doxazosin Mesylate (Cardura -) 4 mg PO DAILY [facility] Last Admin: 10/01/16 11:08 Dose: 4 mg Duloxetine HCl (Cymbalta -) 30 mg PO DAILY [facility] Last Admin: 10/01/16 09:32 Dose: 30 mg Epoetin Joe (Procrit -) 8,000 unit SQ MOWEFR [facility] Last Admin: 10/01/16 11:15 Dose: 8,000 unit Ferrous Sulfate (Feosol -) 325 mg PO DAILY [facility] Last Admin: 10/01/16 09:32 Dose: 325 mg Folic Acid (Folic Acid -) 1 mg PO DAILY [facility] Last Admin: 10/01/16 09:32 Dose: 1 mg Furosemide (Lasix -) 40 mg PO DAILY [facility] Ceftriaxone Sodium (Rocephin 2gm Ivpb (Pre-Docked)) 100 mls @ 200 mls/hr IVPB DAILY [facility] Last Admin: 10/01/16 09:33 Dose: 200 mls/hr Insulin Aspart (Novolog Vial Sliding Scale -) 1 vial SQ ACHS [facility] PRN Reason: Protocol Last Admin: 10/01/16 21:21 Dose: 2 units Insulin Detemir (Levemir Vial) 18 units SQ AM [facility] Last Admin: 10/01/16 06:43 Dose: 18 units Metoprolol Tartrate (Lopressor -) 50 mg PO BID [facility] Last Admin: 10/01/16 21:23 Dose: 50 mg Mirtazapine (Remeron -) 30 mg PO HS [facility] Last Admin: 10/01/16 21:23 Dose: 30 mg Oxycodone HCl (Roxicodone -) 5 mg PO Q6H PRN Last Admin: 10/01/16 18:48 Dose: 5 mg Pregabalin (Lyrica -) 100 mg PO BID [facility] Last Admin: 10/01/16 21:23 Dose: 100 mg Sodium Bicarbonate (Sodium Bicarbonate -) 650 mg PO DAILY [facility] Last Admin: 10/01/16 09:31 Dose: 650 mg Trazodone HCl (Desyrel -) 300 mg PO HS [facility] Last Admin: 10/01/16 21:28 Dose: 300 mg - Objective Vital Signs: Vital Signs Temperature 97.2 F L 10/01/16 16:30 Pulse Rate 67 10/01/16 16:30 Respiratory Rate 20 10/01/16 16:30 Blood Pressure 137/78 10/01/16 16:30 O2 Sat by Pulse Oximetry (%) 98 10/01/16 09:00 Constitutional: Yes: No Distress Eyes: Yes: WNL HENT: Yes: WNL Neck: Yes: WNL Cardiovascular: Yes: WNL Respiratory: Yes: WNL Gastrointestinal: Yes: WNL Genitourinary: Yes: Other Musculoskeletal: Yes: Muscle Weakness Extremities: Yes: Other Edema: No Peripheral Pulses WNL: Yes Integumentary: Yes: WNL Wound/Incision: Yes: Well Approximated, Dressing Dry and Intact, Unapproximated Neurological: Yes: Pre-Existing Deficit Psychiatric: Yes: Other Labs: CBC, BMP 10/01/16 06:30 10/01/16 06:30 Problem List - Problems (1) Acute hyperkalemia Code(s): E87.5 - HYPERKALEMIA (2) Hypoglycemia Code(s): E16.2 - HYPOGLYCEMIA, UNSPECIFIED (3) Pneumonia Code(s): J18.9 - PNEUMONIA, UNSPECIFIED ORGANISM (4) Insomnia Code(s): G47.00 - INSOMNIA, UNSPECIFIED (5) FROYLAN (acute kidney injury) Code(s): N17.9 - ACUTE KIDNEY FAILURE, UNSPECIFIED (6) Acute hypoxemic respiratory failure Code(s): J96.01 - ACUTE RESPIRATORY FAILURE WITH HYPOXIA (7) Acute on chronic diastolic heart failure Code(s): I50.33 - ACUTE ON CHRONIC DIASTOLIC (CONGESTIVE) HEART FAILURE (8) Hyperglycemia Code(s): R73.9 - HYPERGLYCEMIA, UNSPECIFIED (9) Osteomyelitis Code(s): M86.9 - OSTEOMYELITIS, UNSPECIFIED (10) S/P amputation Code(s): Z89.9 - ACQUIRED ABSENCE OF LIMB, UNSPECIFIED Assessment/Plan IV ABX RENAL F/U TRANSFER TO SNF FOR CRISIS NURSE ABX FOR OSTEOMYELITIS ID F/U DISCHARGE PLANNING
[2016-10-02] MEDS: ACETAMINOPHEN 325 MG TABLET (FP) PO PRN ×2 (01:14→08:14)
[2016-10-02] MEDS: oxyCODONE HCL 5 MG TABLET PO PRN ×2 (01:14→08:13)
[2016-10-02] MEDS: INSULIN DETEMIR 100 UNITS/ML MDV SQ SCH (06:04)
[2016-10-02] MEDS: INSULIN SLIDING SCALE (NOVOLOG) 1 VIAL SQ SCH ×2 (06:04→12:16)
[2016-10-02 06:10] LABS: SERUM IRON 29 ug/dL (38-169); TOTAL IRON BINDING CAPACITY 164 ug/dL (250-450); UIBC 135 ug/dL (111-343)
[2016-10-02] MEDS: CALCIUM ACETATE 667 MG CAPSULE (FP) PO SCH ×2 (08:13→12:58)
[2016-10-02] MEDS ORDERED: FUROSEMIDE 40 MG TABLET (FP) PO SCH (10:00)
[2016-10-02] MEDS ORDERED: PT OWN MED DRAWER 7, Y5N ONE (10:01)
[2016-10-02] MEDS: CEFTRIAXONE 100 ML IVPB SCH (10:08)
[2016-10-02] MEDS: DOXAZOSIN MESYLATE 4 MG TABLET PO SCH (10:09)
[2016-10-02] MEDS: ASPIRIN COATED 81 MG TABLET.EC PO SCH (10:09)
[2016-10-02] MEDS: PREGABALIN 50 MG CAPSULE PO SCH (10:09)
[2016-10-02] MEDS: SODIUM BICARBONATE 650 MG TABLET PO SCH (10:10)
[2016-10-02] MEDS: amLODIPine BESYLATE 10 MG TABLET (FP) PO SCH (10:10)
[2016-10-02] MEDS: METOPROLOL TARTRATE 50 MG TABLET (FP) PO SCH (10:10)
[2016-10-02] MEDS: DULoxetine HCL 30 MG CAPSULE.DR (FP) PO SCH (10:10)
[2016-10-02] MEDS: FOLIC ACID 1 MG TABLET (FP) PO SCH (10:10)
[2016-10-02] MEDS: FERROUS SO4 325 MG TABLET (FP) PO SCH (10:11)
--- NOTE | 2016-10-02 12:16 | PN ---
Progress Note (short form) - Note Progress Note: Renal Follow up for CKD/Hyperkalemia Pt seen and examined at he bedside awake and alert no acute complaints no sob, chest pain good urine output Vital Signs Temperature 98.6 F 10/02/16 06:02 Pulse Rate 112 H 10/02/16 06:02 Respiratory Rate 20 10/02/16 06:02 Blood Pressure 132/94 10/02/16 06:02 O2 Sat by Pulse Oximetry (%) 97 10/01/16 21:00 Intake & Output 09/29/16 09/30/16 10/01/16 10/02/16 23:59 23:59 23:59 23:59 Intake Total 1590 1200 700 400 Output Total 1750 1750 1100 1300 Balance -160 -550 -400 -900 Gen: NAD, awake and alert CVS: RRR, No M/R Lungs: CTA, no rales or wheeze Abd: soft NT/ND Ext: Left foot TMA, Drain in place CBC, BMP 10/01/16 06:30 10/01/16 06:30 Current Medications Acetaminophen (Tylenol -) 650 mg PO Q6H PRN PRN Reason: FEVER OR PAIN Last Admin: 10/02/16 08:14 Dose: 650 mg Albuterol/Ipratropium (Duoneb -) 1 amp NEB Q6H PRN PRN Reason: SHORTNESS OF BREATH Amlodipine Besylate (Norvasc -) 10 mg PO DAILY [facility] Last Admin: 10/02/16 10:10 Dose: 10 mg Aspirin (Ecotrin -) 81 mg PO DAILY [facility] Last Admin: 10/02/16 10:09 Dose: 81 mg Calcium Acetate (Phoslo -) 667 mg PO TIDCM [facility] Last Admin: 10/02/16 08:13 Dose: 667 mg Doxazosin Mesylate (Cardura -) 4 mg PO DAILY [facility] Last Admin: 10/02/16 10:09 Dose: 4 mg Duloxetine HCl (Cymbalta -) 30 mg PO DAILY [facility] Last Admin: 10/02/16 10:10 Dose: 30 mg Epoetin Joe (Procrit -) 8,000 unit SQ MOWEFR [facility] Last Admin: 10/01/16 11:15 Dose: 8,000 unit Ferrous Sulfate (Feosol -) 325 mg PO DAILY [facility] Last Admin: 10/02/16 10:11 Dose: 325 mg Folic Acid (Folic Acid -) 1 mg PO DAILY [facility] Last Admin: 10/02/16 10:10 Dose: 1 mg Furosemide (Lasix -) 40 mg PO DAILY [facility] Last Admin: 10/02/16 10:09 Dose: 40 mg Ceftriaxone Sodium (Rocephin 2gm Ivpb (Pre-Docked)) 100 mls @ 200 mls/hr IVPB DAILY [facility] Last Admin: 10/02/16 10:08 Dose: 200 mls/hr Insulin Aspart (Novolog Vial Sliding Scale -) 1 vial SQ ACHS [facility] PRN Reason: Protocol Last Admin: 10/02/16 06:04 Dose: Not Given Insulin Detemir (Levemir Vial) 18 units SQ AM [facility] Last Admin: 10/02/16 06:04 Dose: 18 units Metoprolol Tartrate (Lopressor -) 50 mg PO BID [facility] Last Admin: 10/02/16 10:10 Dose: 50 mg Mirtazapine (Remeron -) 30 mg PO HS [facility] Last Admin: 10/01/16 21:23 Dose: 30 mg Oxycodone HCl (Roxicodone -) 5 mg PO Q6H PRN Last Admin: 10/02/16 08:13 Dose: 5 mg Pregabalin (Lyrica -) 100 mg PO BID [facility] Last Admin: 10/02/16 10:09 Dose: 100 mg Sodium Bicarbonate (Sodium Bicarbonate -) 650 mg PO DAILY [facility] Last Admin: 10/02/16 10:10 Dose: 650 mg Trazodone HCl (Desyrel -) 300 mg PO HS [facility] Last Admin: 10/01/16 21:28 Dose: 300 mg A/P 61 year old gentleman with PMhx of CKD Stage 4 with subnephrotic proteinuriea, IDDM, PVD, Chronic Anemia who presented with severe hypoglycemia and AMS and found to have persistent hyperkalemia. Pt s/p recent admission for Acute Resp failure/Anemia/FROYLAN. 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
[2016-10-02] MEDS ORDERED: FERROUS SO4 325 MG TABLET (FP) PO SCH (14:00)
[2016-10-02 16:45] VITALS: BP 158/87; PULSE 90; TEMP 98.1
== END 2016-10-02 13:24 | DRG 682 ==
LOC: JER 19:47 → JERBED 09-27 01:08 → UNDOADMIN 09-27 01:22 → JERBED 09-27 01:22 → JICU 09-27 10:24 → J8W 09-28 13:59
PROVIDERS: ADMIT Family Medicine; ATTEND Family Medicine
DX: N17.9 Acute kidney failure, unspecified (principal); I50.33 Acute on chronic diastolic (congestive) heart failure; J18.9 Pneumonia, unspecified organism; I13.0 Hypertensive heart and chronic kidney disease with heart failure and stage 1 through stage 4 chronic kidney disease, or unspecified chronic kidney disease; M86.9 Osteomyelitis, unspecified; E11.22 Type 2 diabetes mellitus with diabetic chronic kidney disease; E87.5 Hyperkalemia; N18.4 Chronic kidney disease, stage 4 (severe); E11.649 Type 2 diabetes mellitus with hypoglycemia without coma; Z79.4 Long term (current) use of insulin; E11.69 Type 2 diabetes mellitus with other specified complication; K21.9 Gastro-esophageal reflux disease without esophagitis; F32.9 Major depressive disorder, single episode, unspecified; D63.1 Anemia in chronic kidney disease; Z89.411 Acquired absence of right great toe; Z89.432 Acquired absence of left foot; E11.42 Type 2 diabetes mellitus with diabetic polyneuropathy; E11.51 Type 2 diabetes mellitus with diabetic peripheral angiopathy without gangrene; E55.9 Vitamin D deficiency, unspecified; E11.621 Type 2 diabetes mellitus with foot ulcer; L97.529 Non-pressure chronic ulcer of other part of left foot with unspecified severity; B35.1 Tinea unguium; F51.04 Psychophysiologic insomnia
CPT/HCPCS: 36415; 70450-TC; 71010-TC; 73630-TC-LT; 80048; 80053; 82550; 82553; 82728; 83036; 83540; 83550; 83605; 83735; 83880; 84100; 84484; 85025; 85027; 87040; 87081; 93005; 93010; 93306-TC; 94640; 99284-25; J0885

== ENCOUNTER 2016-10-17 18:24 | Inpatient (IN) | payer OTHER ==
[2016-10-17 19:16] VITALS: BMI 26.7
--- NOTE | 2016-10-17 19:38 | PDOC ---
History of Present Illness - General History Source: Patient Exam Limitations: No Limitations - History of Present Illness Initial Comments: 10/17/16 20:07 The patient is a 61 year old male with significant past medical history of hypertension, diabetes type 2, peripheral disease, CKD Stage 4 with subnephrotic proteinuria, osteomyelitis (08/2014), anemia, depression, GERD who presents to the ED BIBA from [place] for abnormal labs. Patient had blood work done yesterday and was told that his potassium was elevated. As per [facility] records, patient is also anemic. Patient states he is not aware of having a history of anemia, but does have a history of elevated potassium. He denies any bleeding from any site, such as hematemesis, hematochezia, melena, or hematuria. Patient denies any lightheadedness or diaphoresis. The patient denies fever, chills, cough, SOB, chest pain, and palpitations. The patient denies abdominal pain, nausea, vomiting, and diarrhea. Allergies: NKDA Social History: [facility]. No alcohol, tobacco, or drug use reported. Past Surgical History: Left Transmetatarsal amputation 5 digits (2013), right great toe amputation PCP: Dr. Brian Rojo <Ana Rangel - Last Filed: 10/17/16 21:51> - General History Source: Patient <Jesus Renee - Last Filed: 10/18/16 19:12> - General Chief Complaint: Revisit, Lab Variance Stated Complaint: ABDNORMAL LAB WORK Time Seen by Provider: 10/17/16 19:34 Past History <Ana Rangel - Last Filed: 10/17/16 21:51> - Past Medical History Anemia: No Asthma: No Cancer: No Cardiac Disorders: No CVA: No COPD: Yes CHF: No Dementia: No Diabetes: Yes (on insulin, with neuropathy , diabetic foot ulcer) GI Disorders: No Disorders: No HTN: Yes Hypercholesterolemia: No Liver Disease: No Suicide Attempt (Hx): No Seizures: No Thyroid Disease: No Lung CA: Yes (depression) - Surgical History Abdominal Surgery: Yes (HERNIA) Appendectomy: No Cardiac Surgery: No Cholecystectomy: No Lung Surgery: No Neurologic Surgery: No Orthopedic Surgery: Yes (transmetatarsal amputation left foot, rt gr toe amputation) - Immunization History Immunization Up to Date: Yes - Psycho/Social/Smoking Cessation Hx Anxiety: Yes (PTSD since 01/07) Suicidal Ideation: No Smoking Status: No Smoking History: Never smoked Have you smoked in the past 12 months: No Number of Cigarettes Smoked Daily: 0 Cigars Per Day: 1 'Breaking Loose' booklet given: 03/08/16 Hx Alcohol Use: No Drug/Substance Use Hx: No Substance Use Type: Alcohol, Marijuana Hx Substance Use Treatment: No <Jesus Renee - Last Filed: 10/18/16 19:12> - Past Medical History Allergies/Adverse Reactions: Allergies Allergy/AdvReac Type Severity Reaction Status Date / Time shellfish derived Allergy Severe "HIVES" Verified 10/17/16 19:13 No Known Drug Allergies Allergy Verified 10/17/16 19:13 Home Medications: Ambulatory Orders Amlodipine Besylate [Norvasc -] 10 mg PO DAILY 11/07/14 Ascorbate Calcium [Vitamin C] 500 mg PO DAILY 11/07/14 Duloxetine HCl 30 mg PO DAILY 11/07/14 Ferrous Sulfate [Feosol] 325 mg PO DAILY 11/07/14 Folic Acid - 1 mg PO DAILY 11/07/14 Trazodone HCl 300 mg PO HS 11/07/14 Zinc Sulfate 220 mg PO DAILY 11/07/14 Doxazosin Mesylate [Cardura -] 4 mg PO DAILY #30 tablet 11/24/14 Aspirin [ASA -] 81 mg PO DAILY 03/08/16 Oxycodone HCl/Acetaminophen [Percocet 5-325 mg Tablet] 1 tab PO QID #120 tablet MDD 4 08/01/16 Mirtazapine [Remeron -] 30 mg PO HS 08/19/16 Pregabalin [Lyrica -] 100 mg PO BID MDD 2 08/19/16 Albuterol 0.083% Nebulizer Coretta [Ventolin 0.083% Nebulizer Soln -] 1 amp NEB Q4H PRN #0 amp 09/12/16 Albuterol 2.5/Ipratropium 0.5 [Duoneb -] 1 amp NEB QIDR amp 09/12/16 Calcium Acetate [Phoslo -] 1,334 mg PO TIDCM #180 capsule 09/12/16 Ceftriaxone [Rocephin 2Gm Ivpb (Pre-Docked)] 100 ml IVPB DAILY #19 bag 09/12/16 Epoetin Joe [Procrit -] 10,000 unit SQ TUTHSA #12 ml 09/12/16 Furosemide [Lasix -] 20 mg PO DAILY #30 tablet 09/12/16 Insulin (Levemir) [Levemir Flexpen -] 20 units SQ DAILY #1 vial 09/12/16 Insulin Sliding Scale [Novolog Vial Sliding Scale -] 1 vial SQ TIDAC units Metoprolol Tartrate [Lopressor -] 50 mg PO BID tablet 09/12/16 Sodium Bicarbonate - 325 mg PO DAILY tablet 09/12/16 Review of Systems - Review of Systems Able to Perform ROS?: Yes Comments:: 10/17/16 20:08 CONSTITUTIONAL: Absent: fever, chills, diaphoresis, generalized weakness, malaise, loss of appetite HEENT: Absent: rhinorrhea, nasal congestion, throat pain, throat swelling, difficulty swallowing, mouth swelling, ear pain, eye pain, visual Changes CARDIOVASCULAR: Absent: chest pain, syncope, palpitations, irregular heart rate, lightheadedness , peripheral edema RESPIRATORY: Absent: cough, shortness of breath, dyspnea with exertion, orthopnea, wheezing, stridor, hemoptysis GASTROINTESTINAL: Absent: abdominal pain, abdominal distension, nausea, vomiting, diarrhea, constipation, melena, hematochezia GENITOURINARY: Absent: dysuria, frequency, urgency, hesitancy, hematuria, flank pain, genital pain MUSCULOSKELETAL: Absent: myalgia, arthralgia, joint swelling SKIN: Absent: rash, itching, pallor NEUROLOGIC: Absent: headache, focal weakness or paresthesias, dizziness, unsteady gait, seizure, mental status changes, bladder or bowel incontinence <Ana Rangel - Last Filed: 10/17/16 21:51> *Physical Exam - Vital Signs Last Vital Signs Temp Pulse Resp BP Pulse Ox 98.6 F 76 17 145/85 95 10/17/16 18:45 10/17/16 18:45 10/17/16 18:45 10/17/16 18:45 10/17/16 18:45 - Physical Exam Comments: 10/17/16 20:08 GENERAL: Well developed, well nourished. Awake and alert. No acute distress. HEENT: Normocephalic, atraumatic. PERRLA, EOMI. No conjunctival pallor. Sclera are non- icteric. Moist mucous membranes. Oropharynx is clear. NECK: Supple. Full ROM. No JVD. Carotid pulses 2+ and symmetric, without bruits. No thyromegaly. No lymphadenopathy. CARDIOVASCULAR: Regular rate and rhythm. No murmurs, rubs, or gallops. Distal pulses are 2+ and symmetric. PULMONARY: No evidence of respiratory distress. Lungs clear to auscultation bilaterally. No wheezing, rales or rhonchi. ABDOMINAL: Soft. Non-tender. Non-distended. No rebound or guarding. No organomegaly. Normoactive bowel sounds. MUSCULOSKELETAL Normal range of motion at all joints. No bony deformities or tenderness. No CVA tenderness. EXTREMITIES: No cyanosis. No clubbing. No edema. No calf tenderness. SKIN: Warm and dry. Normal capillary refill. No rashes. No jaundice. NEUROLOGICAL: Alert, awake, appropriate. Cranial nerves 2-12 intact. Moving all extremities. No gross neurological deficits. <Ana Rangel - Last Filed: 10/17/16 21:51> - Vital Signs Last Vital Signs Temp Pulse Resp BP Pulse Ox 98.6 F 76 17 145/85 95 10/17/16 18:45 10/17/16 18:45 10/17/16 18:45 10/17/16 18:45 10/17/16 18:45 <Jesus Renee - Last Filed: 10/18/16 19:12> Heart Score/ECG Review - ECG Impressions Comment:: 10/17/16 20:25 Sinus rhythm with marked sinus arrhythmia @81bpm Incomplete RBBB Borderline ECG <Ana Rangel - Last Filed: 10/17/16 21:51> ED Treatment Course - LABORATORY CBC & Chemistry Diagram: 10/17/16 20:05 10/17/16 20:05 <Ana Rangel - Last Filed: 10/17/16 21:51> - LABORATORY CBC & Chemistry Diagram: 10/18/16 00:09 10/18/16 00:09 <Jesus Renee - Last Filed: 10/18/16 19:12> Medical Decision Making - Medical Decision Making 10/17/16 21:[address] Antonio Bhakta (via answering service) Awaiting call back 10/17/16 21:40 Patient's case discussed with Dr. Bhakta <Ana Rangel - Last Filed: 10/17/16 21:51> - Medical Decision Making 10/18/16 19:12 Dr. Renee: The scribe's documentation has been prepared under my direction and personally reviewed by me in its entirery. I confirm that the note above accurately reflects all work, treatment, procedures, and medical decision making performed by me. <Jesus Renee - Last Filed: 10/18/16 19:12> *DC/Admit/Observation/Transfer - Attestations Scribe Attestion: 10/17/16 20:08 Documentation prepared by Ana Rangel, acting as medical records specialist for Jesus Renee MD/DO. <Ana Rangel - Last Filed: 10/17/16 21:51> - Discharge Dispostion Admit: Yes <Jesus Renee - Last Filed: 10/18/16 19:12> Diagnosis at time of Disposition: Hyperkalemia - Referrals
[2016-10-17 20:25] LABS: BASOPHIL 0.6 % (0-2.0); EOSINOPHIL 6.4 % (0-4.5); MCH 24.8 pg (25.7-33.7); MCHC 31.7 g/dl (32.0-35.9); MEAN CELL VOLUME 78.3 fl (80-96); MEAN PLT VOLUME 7.3 fl (7.5-11.1); NEUTROPHILS 69.5 % (42.8-82.8); PLATELET COUNT 383 K/MM3 (134-434); RDW 26.1 % (11.9-15.9); WHITE BLOOD COUNT 7.8 K/mm3 (4.0-10.0)
[2016-10-17 20:38] LABS: INR 1.21 (0.82-1.09); PROTHROMBIN TIME (PATIENT) 13.4 SEC (9.98-11.88)
[2016-10-17 20:50] LABS: ALBUMIN 2.7 g/dl (3.4-5.0); ANION GAP 9 (8-16); BILIRUBIN,TOTAL 0.3 mg/dL (0.2-1.0); CO2 20 mmol/L (21-32); CREATININE 3.4 mg/dL (0.7-1.3); GLUCOSE,RANDOM 116 mg/dL (74-106); SGPT/ALT 28 U/L (12-78); TOT PROT 7.5 g/dl (6.4-8.2)
[2016-10-17 20:53] LABS: ALK PHOS 166 U/L (45-117); TROPONIN I < 0.02 ng/ml (0.00-0.05)
[2016-10-17 20:55] LABS: MAGNESIUM 1.9 mg/dL (1.8-2.4); SGOT/AST 28 U/L (15-37)
[2016-10-17 20:57] LABS: ANISOCYTOSIS 3+; PLATELET ESTIMATE ADEQUATE (NORMAL)
[2016-10-17 20:58] LABS: HYPOCHROMIA OCC; POLYCHROMASIA OCC
[2016-10-17] MEDS ORDERED: DEXTROSE 50%-WATER - 25 GM/50 ML VIAL IVPUSH ONE (21:00)
[2016-10-17] MEDS ORDERED: SODIUM BICARBONATE 8.4% 50 MEQ/50 ML DISP.SYRIN IVPUSH ONE (21:00)
[2016-10-17] MEDS ORDERED: SODIUM POLYSTYRENE SULFONATE 15 GM/60 ML BOTTLE PO ONE (21:00)
[2016-10-17] MEDS ORDERED: CALCIUM GLUCONATE 10% - 1,000 MG/10 ML VIAL IVPUSH ONE (21:00)
[2016-10-17] MEDS ORDERED: INSULIN REGULAR HUMAN 100 UNITS/ML *VIAL IVPUSH ONE (21:00)
[2016-10-17] MEDS ORDERED: CALCIUM CHLORIDE 1 GM/10 ML *DISP.SYRIN ONE (21:11)
[2016-10-17] MEDS ORDERED: DEXTROSE 50%-WATER 50 ML DISP.SYRIN ONE (21:12)
[2016-10-17] MEDS ORDERED: SODIUM BICARBONATE 8.4% - 50 ML ONE (21:12)
[2016-10-17] MEDS ORDERED: SODIUM POLYSTYRENE SULFONATE 15 GM/60 ML BOTTLE ONE (21:12)
[2016-10-17] MEDS ORDERED: CALCIUM GLUCONATE 10% - 1,000 MG/10 ML VIAL ONE (21:13)
[2016-10-17] MEDS ORDERED: INSULIN REGULAR HUMAN 100 UNITS/ML *VIAL ONE (21:14)
[2016-10-17 21:43] LABS: URINE APPEARANCE CLEAR; URINE BILIRUBIN NEGATIVE (NEGATIVE); URINE COLOR STRAW; URINE GLUCOSE (UA) NEGATIVE (NEGATIVE); URINE KETONE NEGATIVE (NEGATIVE); URINE LEUK ESTERASE NEGATIVE (NEGATIVE); URINE NITRITE NEGATIVE (NEGATIVE); URINE UROBILINOGEN NEGATIVE E.U./dl (0.2-1.0)
[2016-10-17 21:44] LABS: URINE BLOOD 1+ (NEGATIVE); URINE PROTEIN 2+ (NEGATIVE)
[2016-10-17 21:45] LABS: URINE RBC 5 /hpf (0-3); URINE WBC 1 /hpf (3-5)
[2016-10-17] MEDS ORDERED: ALBUTEROL SO4 2.5/IPRATROPIUM 0.5 INH SOL 3 ML VIAL.NEB. NEB PRN (22:15)
[2016-10-17] MEDS ORDERED: FUROSEMIDE 40 MG TABLET (FP) PO ONE (22:15)
[2016-10-17] MEDS ORDERED: PREGABALIN 100 MG CAPSULE ONE (23:34)
[2016-10-17] MEDS ORDERED: FUROSEMIDE 40 MG TABLET (FP) ONE (23:34)
[2016-10-17] MEDS: PREGABALIN 100 MG CAPSULE PO SCH (23:37)
[2016-10-18 00:20] LABS: BASOPHIL 1.1 % (0-2.0); EOSINOPHIL 6.9 % (0-4.5); MCH 24.7 pg (25.7-33.7); MCHC 31.4 g/dl (32.0-35.9); MEAN CELL VOLUME 78.7 fl (80-96); MEAN PLT VOLUME 7.1 fl (7.5-11.1); NEUTROPHILS 63.3 % (42.8-82.8); PLATELET COUNT 362 K/MM3 (134-434); RDW 25.1 % (11.9-15.9); WHITE BLOOD COUNT 7.3 K/mm3 (4.0-10.0)
[2016-10-18 00:46] LABS: ALBUMIN 2.5 g/dl (3.4-5.0); ANION GAP 8 (8-16); CALCIUM 7.9 mg/dL (8.5-10.1); CO2 23 mmol/L (21-32); GLUCOSE,RANDOM 80 mg/dL (74-106)
[2016-10-18 00:50] LABS: ALK PHOS 145 U/L (45-117); BILIRUBIN,TOTAL 0.3 mg/dL (0.2-1.0); CREATININE 3.3 mg/dL (0.7-1.3); SGOT/AST 18 U/L (15-37); SGPT/ALT 23 U/L (12-78); TOT PROT 6.8 g/dl (6.4-8.2)
[2016-10-18] MEDS ORDERED: oxyCODONE HCL 5 MG TABLET PO PRN (02:37)
[2016-10-18] MEDS ORDERED: oxyCODONE HCL 5 MG TABLET ONE ×2 (02:41→13:22)
[2016-10-18 07:02] LABS: ANISOCYTOSIS 2+; MICROCYTOSIS 2+
[2016-10-18] MEDS: INSULIN SLIDING SCALE (NOVOLOG) 1 VIAL SQ SCH ×4 (08:30→21:53)
--- NOTE | 2016-10-18 12:15 | PN ---
Progress Note (short form) - Note Progress Note: Patient telephoned me from ED and is requesting Dr. Meyer and the hospitalist service as well as me to attend the foot. Thank you
--- NOTE | 2016-10-18 12:26 | EKG ---
Test Reason : Blood Pressure : / mmHG Vent. Rate : 081 BPM Atrial Rate : 081 BPM P-R Int : 166 ms QRS Dur : 100 ms QT Int : 394 ms P-R-T Axes : 008 068 105 degrees QTc Int : 457 ms SINUS RHYTHM WITH MARKED SINUS ARRHYTHMIA INCOMPLETE RIGHT BUNDLE BRANCH BLOCK BORDERLINE ECG WHEN COMPARED WITH ECG OF 27-SEP-2016 09:58, PREMATURE ATRIAL COMPLEXES ARE NO LONGER PRESENT ME INTERVAL HAS DECREASED NONSPECIFIC T WAVE ABNORMALITY, IMPROVED IN LATERAL LEADS Confirmed by DALE FRANCO MD ([id number]) on 10/18/2016 12:26:14 PM Referred By: Confirmed By:DALE FRANCO MD
[2016-10-18] MEDS: SODIUM BICARBONATE 650 MG TABLET PO SCH ×2 (13:00→21:49)
[2016-10-18] MEDS: amLODIPine BESYLATE 10 MG TABLET (FP) PO SCH (13:00)
[2016-10-18] MEDS: METOPROLOL TARTRATE 25 MG TABLET (FP) PO SCH ×2 (13:00→21:50)
[2016-10-18] MEDS: DULoxetine HCL 60 MG CAPSULE.DR PO SCH (13:00)
[2016-10-18] MEDS: FERROUS SO4 325 MG TABLET (FP) PO SCH (13:00)
[2016-10-18] MEDS: MIRTAZAPINE 15 MG TABLET (FP) PO SCH (13:00)
[2016-10-18] MEDS: DOXAZOSIN MESYLATE 4 MG TABLET PO SCH (13:00)
[2016-10-18] MEDS: PREGABALIN 100 MG CAPSULE PO SCH (13:00)
[2016-10-18] MEDS: DOCUSATE SODIUM 100 MG CAPSULE (FP) PO SCH (15:20)
--- NOTE | 2016-10-18 17:19 | HP ---
Admitting History and Physical - Primary Care Physician PCP: Antonio Bhakta - Admission Chief Complaint: WOUND INFECTION/ESRD History of Present Illness: The patient is a 61 year old male with significant past medical history of hypertension, diabetes type 2, peripheral disease, CKD Stage 4 with subnephrotic proteinuria, osteomyelitis (08/2014), anemia, depression, GERD who presents to the ED BIBA from [place] for abnormal labs. Patient had blood work done yesterday and was told that his potassium was elevated. As per [facility], patient is also anemic. Patient states he is not aware of having a history of anemia, but does have a history of elevated potassium. He denies any bleeding from any site, such as hematemesis, hematochezia, melena, or hematuria. Patient denies any lightheadedness or diaphoresis. The patient denies fever, chills, cough, SOB, chest pain, and palpitations. The patient denies abdominal pain, nausea, vomiting, and diarrhea. 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: Peripheral Neuropathy Cardiovascular: Yes: HTN Gastrointestinal: Yes: GERD Psych: Yes: Depression Musculoskeletal: Yes: Other (chronic pain) Rheumatology: Yes: Other (history of osteomyletis) Endocrine: Yes: Diabetes Mellitus - Past Surgical History Past Surgical History: Yes: Amputation (transmetatarsal of Left foot) - Smoking History Smoking history: Current some day smoker Have you smoked in the past 12 months: No Aproximately how many cigarettes per day: 0 - Alcohol/Substance Use Hx Alcohol Use: No Number of Drinks Daily: 2 (weekends) - Social History ADL: Support Services History of Recent Travel: No Home Medications - Allergies Allergies/Adverse Reactions: Allergies Allergy/AdvReac Type Severity Reaction Status Date / Time shellfish derived Allergy Severe "HIVES" Verified 10/17/16 19:13 No Known Drug Allergies Allergy Verified 10/17/16 19:13 - Home Medications Home Medications: Ambulatory Orders Amlodipine Besylate [Norvasc -] 10 mg PO DAILY 11/07/14 Ascorbate Calcium [Vitamin C] 500 mg PO DAILY 11/07/14 Duloxetine HCl 30 mg PO DAILY 11/07/14 Ferrous Sulfate [Feosol] 325 mg PO DAILY 11/07/14 Folic Acid - 1 mg PO DAILY 07/12/15 Trazodone HCl 300 mg PO HS 11/07/14 Zinc Sulfate 220 mg PO DAILY 11/07/14 Doxazosin Mesylate [Cardura -] 4 mg PO DAILY #30 tablet 11/24/14 Aspirin [ASA -] 81 mg PO DAILY 03/08/16 Oxycodone HCl/Acetaminophen [Percocet 5-325 mg Tablet] 1 tab PO QID #120 tablet MDD 4 08/01/16 Mirtazapine [Remeron -] 30 mg PO HS 08/19/16 Pregabalin [Lyrica -] 100 mg PO BID MDD 2 08/19/16 Albuterol 0.083% Nebulizer Coretta [Ventolin 0.083% Nebulizer Soln -] 1 amp NEB Q4H PRN #0 amp 09/12/16 Albuterol 2.5/Ipratropium 0.5 [Duoneb -] 1 amp NEB QIDR amp 09/12/16 Calcium Acetate [Phoslo -] 1,334 mg PO TIDCM #180 capsule 09/12/16 Ceftriaxone [Rocephin 2Gm Ivpb (Pre-Docked)] 100 ml IVPB DAILY #19 bag 09/12/16 Epoetin Joe [Procrit -] 10,000 unit SQ TUTHSA #12 ml 09/12/16 Furosemide [Lasix -] 20 mg PO DAILY #30 tablet 09/12/16 Insulin (Levemir) [Levemir Flexpen -] 20 units SQ DAILY #1 vial 09/12/16 Insulin Sliding Scale [Novolog Vial Sliding Scale -] 1 vial SQ TIDAC units Metoprolol Tartrate [Lopressor -] 50 mg PO BID tablet 09/12/16 Sodium Bicarbonate - 325 mg PO DAILY tablet 09/12/16 Family Disease History - Family Disease History Family Disease History: Diabetes: Mother Review of Systems - Review of Systems Constitutional: reports: Loss of Appetite, Weakness Eyes: reports: No Symptoms HENT: reports: No Symptoms Neck: reports: No Symptoms Cardiovascular: reports: No Symptoms Respiratory: reports: No Symptoms Gastrointestinal: reports: No Symptoms Genitourinary: reports: Other Musculoskeletal: reports: Back Pain, Decreased ROM, Extremity Pain, Joint Pain, Muscle Pain, Muscle Weakness Integumentary: reports: Wound Neurological: reports: Pre-Existing Deficit Endocrine: reports: No Symptoms Hematology/Lymphatic: reports: No Symptoms Psychiatric: reports: Other Physical Examination Vital Signs: Vital Signs Temperature 97.7 F 10/18/16 15:00 Pulse Rate 64 10/18/16 15:00 Respiratory Rate 16 10/18/16 16:15 Blood Pressure 147/90 10/18/16 15:00 O2 Sat by Pulse Oximetry (%) 95 10/18/16 16:15 Constitutional: Yes: Moderate Distress Eyes: Yes: WNL HENT: Yes: WNL Neck: Yes: WNL Cardiovascular: Yes: WNL Respiratory: Yes: WNL Gastrointestinal: Yes: WNL Renal/: Yes: WNL Musculoskeletal: Yes: Joint Swelling, Muscle Weakness Extremities: Yes: Deformity Edema: No Peripheral Pulses WNL: Yes Integumentary: Yes: Erythema, Pressure Ulcer Wound/Incision: Yes: Dressing Removed, Excoriated, Unapproximated Neurological: Yes: Paresthesia, Pre-Existing Deficit ...Motor Strength: LLE, RLE Psychiatric: Yes: Other Labs: CBC, BMP 10/18/16 00:09 10/18/16 00:09 Problem List - Problems (1) Hyperkalemia Code(s): E87.5 - HYPERKALEMIA (2) Acute hyperkalemia Code(s): E87.5 - HYPERKALEMIA (3) Osteoarthritis Code(s): M19.90 - UNSPECIFIED OSTEOARTHRITIS, UNSPECIFIED SITE Qualifiers: Laterality: bilateral (4) COPD with emphysema Code(s): J43.9 - EMPHYSEMA, UNSPECIFIED (5) Diabetic neuropathy Code(s): E11.40 - TYPE 2 DIABETES MELLITUS WITH DIABETIC NEUROPATHY, UNSP Qualifiers: 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 type: type 2 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 complication detail: diabetic polyneuropathy Qualified Code(s): E11.42 - Type 2 diabetes mellitus with diabetic polyneuropathy (6) Foot infection Code(s): L08.9 - LOCAL INFECTION OF THE SKIN AND SUBCUTANEOUS TISSUE, UNSP (7) Neuropathy Code(s): G62.9 - POLYNEUROPATHY, UNSPECIFIED (8) Osteomyelitis Code(s): M86.9 - OSTEOMYELITIS, UNSPECIFIED Qualifiers: Osteomyelitis type: other chronic Osteomyelitis location: foot (9) Weakness of both legs Code(s): R29.898 - OTH SYMPTOMS AND SIGNS INVOLVING THE MUSCULOSKELETAL SYSTEM Assessment/Plan ID CONSULT PODIATRY EVAL ESRD RENAL F/U PAIN CONTROL TRANSFERRING TO HOSPITALIST PER 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
--- NOTE | 2016-10-18 17:33 | HOSP ---
Physical Examination Vital Signs: Vital Signs Temperature 97.7 F 10/18/16 15:00 Pulse Rate 64 10/18/16 15:00 Respiratory Rate 16 10/18/16 16:15 Blood Pressure 147/90 10/18/16 15:00 O2 Sat by Pulse Oximetry (%) 95 10/18/16 16:15 Labs: CBC, BMP 10/18/16 00:09 10/18/16 00:09 Hospitalist Encounter Assessment: I was notified that patient will now be under hospitalist services and will take responsibility on patient care for this admission. Patient is a 61 year old male with a significant PMHx of DM II with nephropathy and neuropathy, Osteomyelitis s/p left metatarsal amputation, PVD, HTN and CKD, COPD, Anxiety/Depression who presented from [place] for abnormal labs. Patient had blood work done yesterday and was told that his potassium was elevated. In the ED patient was found to have a potassium level of 6.7. Patient denies any symptoms and states he feels fine. Albuterol , Insulin, D5W , and Calcium gluconate was given to patient in the ED. Repeat labs showed a potassium of 5.4. Patient otherwise denies fever, chills, nausea, vomiting, abdominal pain, chest pain, shortness of breath. PHYSICAL EXAM: GENERAL: The patient is awake, alert, and fully oriented, in no acute distress. LUNGS: Rhonchi's throughout lung bases bilaterally HEART: Regular rate and rhythm, normal S1 and S2 without murmur, rub or gallop. ABDOMEN: Soft, nontender, nondistended, no guarding, no rebound tenderness EXTREMITIES: trace pitting edema in B/L LE. Left metatarsal amputation with wound dressing wrapped around with serosanguineous drainage IMAGES: Chest X-ray (10/17/16): Interval significantly better aeration of the lower lung with residual mild atelectatic changes versus infiltrates in the right lung base A&P Patient is a 61 year old male with a significant PMHx of DM II with nephropathy and neuropathy, Osteomyelitis s/p left metatarsal amputation, PVD, HTN and CKD, COPD, Anxiety/Depression who presented from [place] for abnormal labs from the custodial. Patient was found to have a potassium level of 6.7. Patient admitted for further management. Acute Hyperkalemia -Initially 6.7 -Given Calcium Gluconate, D50W, Insulin, and albuterol -Repeat potassium 5.4 -BMP ordered stat -Magnesium ordered -Albuterol nebulizer x3 ordered -Maintain low potassium diet -Will continue to monitor Acute on chronic renal failure- Stable -Creatinine 3.4 initially. Lasix 80mg IV given -Repeat creatinine 3.3 -U/A negative -Continue with daily BMP's and monitoring -Nephrology consult placed Anemia of Chronic Disease- Chronic -Continue Ferrous Sulfate 325mg PO daily -Continue to trend CBC HTN-Controlled -Continue Metoprolol 25mg BID -Norsvac 10mg daily -Continue to monitor BP daily IDDM II with Peripheral Neuropathy -Controlled with insulin -Levemir 20 units HS -Insulin sliding scale -BGM -Continue Lyrica 100mg PO BID COPD -In no acute exacerbation -Continue Duoneb Q6H PRN Depression -Continue Remeron 15mg daily -Continue Cymbalta 60mg PO daily -Continue Cardura 4mg daily F/E/N -On no fluids -Hyperkalemia- repleted -Renal diet Prophylaxis -SCD's for DVT Visit type - Emergency Visit Emergency Visit: Yes ED Registration Date: 10/17/16 Care time: The patient presented to the Emergency Department on the above date and was hospitalized for further evaluation of their emergent condition. - New Patient This patient is new to me today: Yes Date on this admission: 10/18/16 - Critical Care Critical Care patient: No
[2016-10-18] MEDS ORDERED: ALBUTEROL SO4 0.083% IH SOL 2.5 MG/3 ML VIAL.NEB. NEB ONE ×2 (18:20→21:12)
--- NOTE | 2016-10-18 18:37 | PN ---
Progress Note (short form) - Note Progress Note: VAsc[facility] Surgery Pt is under the care of Dr. Galvan . He will follow the pt. Will be on standby for any assistance, if needed. Al Daly DO
[2016-10-18 20:25] LABS: MCH 24.8 pg (25.7-33.7); MCHC 31.4 g/dl (32.0-35.9); MEAN CELL VOLUME 79.1 fl (80-96); MEAN PLT VOLUME 7.4 fl (7.5-11.1); PLATELET COUNT 388 K/MM3 (134-434); RDW 24.9 % (11.9-15.9); WHITE BLOOD COUNT 5.4 K/mm3 (4.0-10.0)
[2016-10-18 20:55] LABS: ANION GAP 7 (8-16); CALCIUM 7.8 mg/dL (8.5-10.1); CO2 22 mmol/L (21-32); CREATININE 3.2 mg/dL (0.7-1.3); GLUCOSE,RANDOM 173 mg/dL (74-106); MAGNESIUM 1.8 mg/dL (1.8-2.4); PHOSPHOROUS 5.4 mg/dL (2.5-4.9)
[2016-10-18] MEDS ORDERED: INSULIN (NOVOLOG) ASPART 100 UNITS/ML 10ML VIAL ONE (21:05)
[2016-10-18] MEDS ORDERED: SODIUM POLYSTYRENE SULFONATE 15 GM/60 ML BOTTLE PO ONE (21:11)
[2016-10-18] MEDS ORDERED: CALCIUM GLUCONATE 10% - 1,000 MG/10 ML VIAL IVPB ONE (21:11)
--- NOTE | 2016-10-18 21:39 | PN ---
Progress Note (short form) - Note Progress Note: Consult dictated. Recent debridement at [facility] outpatient in the [place]. No need for immediate surgeical debridement. Applied KCI wound VAC at 125 mm Hg. Will continue to follow patient
[2016-10-18] MEDS: PREGABALIN 50 MG CAPSULE PO SCH (21:49)
[2016-10-18] MEDS: INSULIN DETEMIR 100 UNITS/ML MDV SQ SCH (21:53)
[2016-10-18] MEDS: ACETAMINOPHEN 325 MG TABLET (FP) PO PRN (21:55)
[2016-10-18] MEDS: oxyCODONE HCL 5 MG TABLET PO PRN (21:56)
--- NOTE | 2016-10-18 23:14 | CONS ---
DATE OF CONSULTATION: 10/18/2016 PRESENTING PROBLEM: Patient is well known to this examiner, has chronic osteomyelitis of all the residual bones of the left lower limb including the residual metatarsals, greater and lesser tarsal bones, and the distal tibia and fibula. Patient has been admitted for metabolic abnormalities including hypokalemia, and a consult for continued care of this ulceration is requested. HISTORY OF PRESENT ILLNESS: Patient is well known to this examiner. Patient was admitted for significant hypokalemia and hyperglycemia. Patient has been lethargic. Patient has anemia, and patient has been followed by this examiner both here through the 2 previous admissions at [facility] and as well as outpatient wound care at [facility] in the [place]. Patient developed this wound from incision and drainage that this examiner had performed due to recurrence of the osteomyelitis from patient noncompliance with seeking infectious disease consultation for a previously diagnosed osteomyelitis several months before. The patient has had a recent debridement of this large ulceration on the left foot. He has an osseus debridement approximately 6 weeks ago with infusion of biodegradable antibiotic, vancomycin and gentamicin infused beads. PAST MEDICAL HISTORY: Significant past and present medical history, the patient has history significant for multiple foot amputations, transmetatarsal amputation of the left, great toe amputation performed at this institution. He suffers from chronic kidney disease, hypokalemia, chronic anemia, peripheral edema secondary to the osteomyelitis on the left. Patient is anesthetic with occasional hyperesthesia of painful peripheral neuropathy. He has been treated with gabapentin, Lyrica, and duloxetine. In fact, the medications include duloxetine, ferrous sulfate, folic acid, trazodone, zinc sulfate, doxazosin, mesylate, aspirin, Percocet 5/325, albuterol, amlodipine besylate, albuterol inhaler, mirtazapine, pregabalin ( Lyrica), allopurinol, calcium acetate, and patient just finished a course of long-term antibiotic therapy. Allergic history is significant for SHELLFISH derived allergies, no known drug allergies. SOCIAL HISTORY: Patient does not smoke and occasionally drinks. PHYSICAL EXAMINATION: General: Patient is lying comfortably. Remarkable for his constitutional makeup that patient has lost significant amount of weight since the last hospitalization. Extremities: Examination of the left lower limb reveals a generic wound pressure therapy device applied at the long-term facility which is of questionable efficacy. Removal of the dressing reveals that patient still has a large ulceration to the muscular level. Patient has some exposed necrotic tendon, and the antibiotic beads have been completely absorbed. Wound is approximately 75% granulated with 25% slough. There is no suppuration. No ascending lymphangitis. Patient has moderate peripheral edema consistent with chronic inflammation and chronic infection. ASSESSMENT: Chronic osteomyelitis with diabetic foot ulceration to the muscular level PLAN: Wound examination was performed, mechanical debridement was performed. The [employer] wound VAC was applied at 125 mmHg. Patient had a recent outpatient debridement at [facility] earlier this week. At the present time this examiner does not see the need for any surgical immediate debridement, as the wound is granulating well, but may need a future debridement shortly. MRI indicated to assess extensive previously diagnosed and treated osteomyelitis. Will continue to follow the patient and determine the necessity to bring the patient to the operating theater. Discussed the case with the emergency room physician. Total time with patient reviewing the medical record, discussing with the staff and discussing with the nurse exceeded [address] NIURKA ARMSTRONG RT/[id number] MTDD
[2016-10-19] MEDS: INSULIN SLIDING SCALE (NOVOLOG) 1 VIAL SQ SCH ×4 (06:15→22:04)
[2016-10-19 08:12] LABS: MCH 25.1 pg (25.7-33.7); MCHC 32.1 g/dl (32.0-35.9); MEAN CELL VOLUME 78.2 fl (80-96); MEAN PLT VOLUME 7.5 fl (7.5-11.1); PLATELET COUNT 372 K/MM3 (134-434); RDW 25.3 % (11.9-15.9); WHITE BLOOD COUNT 5.7 K/mm3 (4.0-10.0)
[2016-10-19 09:00] LABS: ANION GAP 9 (8-16); CO2 22 mmol/L (21-32); CREATININE 2.9 mg/dL (0.7-1.3); GLUCOSE,RANDOM 105 mg/dL (74-106)
[2016-10-19] MEDS ORDERED: DEXTROSE 50%-WATER - 25 GM/50 ML VIAL IVPUSH ONE (09:00)
[2016-10-19] MEDS ORDERED: DULoxetine HCL 30 MG CAPSULE.DR (FP) PO ONE (09:09)
[2016-10-19] MEDS ORDERED: PT OWN MED DRAWER 7, Y5N ONE (09:11)
[2016-10-19] MEDS: PREGABALIN 50 MG CAPSULE PO SCH ×2 (09:13→22:04)
[2016-10-19] MEDS: MIRTAZAPINE 15 MG TABLET (FP) PO SCH (09:14)
[2016-10-19] MEDS: amLODIPine BESYLATE 10 MG TABLET (FP) PO SCH (09:14)
[2016-10-19] MEDS: DOCUSATE SODIUM 100 MG CAPSULE (FP) PO SCH (09:14)
[2016-10-19] MEDS: METOPROLOL TARTRATE 25 MG TABLET (FP) PO SCH ×2 (09:14→22:04)
[2016-10-19] MEDS: FERROUS SO4 325 MG TABLET (FP) PO SCH (09:14)
[2016-10-19] MEDS: DOXAZOSIN MESYLATE 4 MG TABLET PO SCH (09:14)
[2016-10-19] MEDS: SODIUM BICARBONATE 650 MG TABLET PO SCH ×2 (09:14→22:05)
[2016-10-19] MEDS: DULoxetine HCL 60 MG CAPSULE.DR PO SCH (09:15)
[2016-10-19] MEDS: oxyCODONE HCL 5 MG TABLET PO PRN ×3 (09:16→22:53)
[2016-10-19] MEDS: ACETAMINOPHEN 325 MG TABLET (FP) PO PRN ×3 (09:17→22:53)
[2016-10-19] MEDS ORDERED: INSULIN REGULAR HUMAN 100 UNITS/ML *VIAL IVPUSH ONE (09:30)
--- NOTE | 2016-10-19 09:31 | PN ---
Physical Exam: SUBJECTIVE: Patient seen and examined by me at bedside. Patient continues to have hyperkalemia and yesterday evening received kayexalate, calcium gluconate, Insulin and D50W. Patient however offers no complaints. Otherwise, patient denies fever, chills, nausea, vomiting, abdominal pain, cheat pain, palpitations , shortness of breath OBJECTIVE: Vital Signs Period Temp Pulse Resp BP Sys/Gutierrez Pulse Ox Last 24 Hr 97.7 F-98.0 F 64-115 16-20 140-154/90-105 95-98 GENERAL: The patient is awake, alert, and fully oriented, in no acute distress. LUNGS: Rhonchi's throughout lung bases bilaterally HEART: Tachycardic with regular rhythm, normal S1 and S2 without murmur, rub or gallop. ABDOMEN: Soft, nontender, nondistended, no guarding, no rebound tenderness EXTREMITIES: Trace pitting edema in B/L LE. Left metatarsal amputation with wound dressing wrapped around with serosanguineous drainage NEURO: Normal speech, no facial droop Laboratory Results - last 24 hr 10/18/16 10/18/16 10/18/16 14:03 16:13 20:02 WBC 5.4 RBC 3.34 L Hgb 8.3 L D Hct 26.4 L MCV 79.1 L MCHC 31.4 L RDW 24.9 H Plt Count 388 MPV 7.4 L Sodium Potassium Chloride Carbon Dioxide Anion Gap BUN Creatinine POC Glucometer [phone] Random Glucose Calcium Phosphorus Magnesium 10/18/16 10/18/16 10/19/16 20:02 21:03 05:31 WBC RBC Hgb Hct MCV MCHC RDW Plt Count MPV Sodium 137 Potassium 6.3 H* Chloride 108 H Carbon Dioxide 22 Anion Gap 7 L BUN 59 H Creatinine 3.2 H POC Glucometer 166 121 Random Glucose 173 H D Calcium 7.8 L Phosphorus 5.4 H Magnesium 1.8 10/19/16 10/19/16 06:00 06:00 WBC 5.7 RBC 3.33 L Hgb 8.4 L Hct 26.0 L MCV 78.2 L MCHC 32.1 RDW 25.3 H Plt Count 372 MPV 7.5 Sodium 140 Potassium 5.6 H Chloride 109 H Carbon Dioxide 22 Anion Gap 9 BUN 56 H Creatinine 2.9 H POC Glucometer Random Glucose 105 D Calcium 8.0 L Phosphorus Magnesium Active Medications Generic Name Dose Route Start Last Admin Trade Name Freq PRN Reason Stop Dose Admin Acetaminophen 650 mg 10/17/16 22:15 10/19/16 09:17 Tylenol - PO 650 mg Q6H PRN Administration FEVER OR PAIN Albuterol/Ipratropium 1 amp 10/17/16 22:15 Duoneb - NEB Q6H PRN SHORTNESS OF BREATH Amlodipine Besylate 10 mg 10/18/16 10:00 10/19/16 09:14 Norvasc - PO 10 mg DAILY IGGY Administration Docusate Sodium 100 mg 10/18/16 10:00 10/19/16 09:14 Colace - PO 100 mg DAILY IGGY Administration Doxazosin Mesylate 4 mg 10/18/16 10:00 10/19/16 09:14 Cardura - PO 4 mg DAILY IGGY Administration Duloxetine HCl 60 mg 10/18/16 10:00 10/19/16 09:15 Cymbalta - PO 60 mg DAILY [facility] Administration Ferrous Sulfate 325 mg 10/18/16 10:00 10/19/16 09:14 Feosol - PO 325 mg DAILY [facility] Administration Insulin Aspart 1 vial 10/18/16 07:00 10/19/16 06:15 Novolog Vial Sliding Scale - SQ Not Given ACHS [facility] Protocol Insulin Detemir 20 units 10/18/16 22:00 10/18/16 21:53 Levemir Vial SQ Not Given [facility] Insulin Human Regular 10 units 10/19/16 09:30 Novolin R Vial *For Ivpush Or Iv Drip Only* IVPUSH 10/19/16 09:31 ONCE ONE Metoprolol Tartrate 25 mg 10/18/16 10:00 10/19/16 09:14 Lopressor - PO 25 mg BID IGGY Administration Mirtazapine 15 mg 10/18/16 10:00 10/19/16 09:14 Remeron - PO 15 mg DAILY IGGY Administration Oxycodone HCl 5 mg 10/18/16 13:09 10/19/16 09:16 Roxicodone - PO 5 mg Q6H PRN Administration PAIN Pregabalin 100 mg 10/18/16 22:00 10/19/16 09:13 Lyrica - PO 100 mg BID [facility] Administration Sodium Bicarbonate 650 mg 10/18/16 10:00 10/19/16 09:14 Sodium Bicarbonate - PO 650 mg BID IGGY Administration IMAGES: Chest X-ray (10/17/16): Interval significantly better aeration of the lower lung with residual mild atelectatic changes versus infiltrates in the right lung base ASSESSMENT/PLAN: Patient is a 61 year old male with a significant PMHx of DM II with nephropathy and neuropathy, Osteomyelitis s/p left metatarsal amputation, PVD, HTN and CKD, COPD, Anxiety/Depression who presented from [place] for abnormal labs [facility] the [facility]. Patient was found to have a potassium level of 6.7. Patient admitted for further management. Acute Hyperkalemia -Today 5.6 -Given Calcium Gluconate, D50W, Insulin, and albuterol overnight -Ordered another Insulin 10 units, D50W and albuterol x3 today -Will repeat labs -Will repeat EKG -Maintain low potassium diet -Will continue to monitor Acute on chronic renal failure- Stable -Today 2.9 -Half a bolus of IV NS ordered -U/A negative -Continue with daily BMP's and monitoring -Nephrology consult placed Anemia of Chronic Disease- Chronic -Continue Ferrous Sulfate 325mg PO daily -Continue to trend CBC HTN-Controlled -Continue Metoprolol 25mg BID -Norsvac 10mg daily -Continue to monitor BP daily IDDM II with Peripheral Neuropathy -Controlled with insulin -Levemir 20 units HS -Insulin sliding scale -BGM -Continue Lyrica 100mg PO BID COPD -In no acute exacerbation -Continue Duoneb Q6H PRN Depression -Continue Remeron 15mg daily -Continue Cymbalta 60mg PO daily -Continue Cardura 4mg daily F/E/N -On no fluids -Hyperkalemia- repleted -Renal diet Prophylaxis -SCD's for DVT Disposition -Continues to have Hyperkalemia. Nephrology consult. Visit type - Emergency Visit Emergency Visit: Yes ED Registration Date: 10/17/16 Care time: The patient presented to the Emergency Department on the above date and was hospitalized for further evaluation of their emergent condition. - New Patient This patient is new to me today: No - Critical Care Critical Care patient: No
[2016-10-19] MEDS ORDERED: SODIUM CHLORIDE 500 ML IV STA ×2 (10:14→18:21)
--- NOTE | 2016-10-19 13:31 | CONSULT ---
Consult - text type - Consultation Consultation Note: Renal Consult for FROYLAN on CKD and Hyperkalemia This is a 61 year old gentleman with PMhx of CKD Stage 4 with subnephrotic proteinuriea, IDDM, PVD, Chronic Anemia presented from [place] with hyperkalemia and worsening kidney function. Pt states that he felt fine. He was observing a low K diet. No YASMIN/ARB given. Was not on diuretics. No CP, Palpitations, N/V/D. No flank pain. Good urine output. No PEREZ, chest pain, fever, chills. + LE edema. PMhx: as above Allergies: Shellfish Family Hx: NC ROS: as per HPI, all other pertinent ros negative Home Meds: Home Medications Medication Instructions Recorded Amlodipine Besylate [Norvasc -] 10 mg PO DAILY 11/07/14 Ascorbate Calcium [Vitamin C] 500 mg PO DAILY 11/07/14 Duloxetine HCl 30 mg PO DAILY 11/07/14 Ferrous Sulfate [Feosol] 325 mg PO DAILY 11/07/14 Folic Acid - 1 mg PO DAILY 11/07/14 Trazodone HCl 300 mg PO HS 11/07/14 Zinc Sulfate 220 mg PO DAILY 11/07/14 Doxazosin Mesylate [Cardura -] 4 mg PO DAILY #30 tablet 11/24/14 Aspirin [ASA -] 81 mg PO DAILY 03/08/16 Oxycodone HCl/Acetaminophen 1 tab PO QID #120 tablet MDD 4 08/01/16 [Percocet 5-325 mg Tablet] Mirtazapine [Remeron -] 30 mg PO HS 08/19/16 Pregabalin [Lyrica -] 100 mg PO BID MDD 2 08/19/16 Albuterol 0.083% Nebulizer Coretta 1 amp NEB Q4H PRN #0 amp 09/12/16 [Ventolin 0.083% Nebulizer Soln -] Albuterol 2.5/Ipratropium 0.5 1 amp NEB QIDR amp 09/12/16 [Duoneb -] Calcium Acetate [Phoslo -] 1,334 mg PO TIDCM #180 capsule 09/12/16 Ceftriaxone [Rocephin 2Gm Ivpb 100 ml IVPB DAILY #19 bag 09/12/16 (Pre-Docked)] Epoetin Joe [Procrit -] 10,000 unit SQ TUTHSA #12 ml 09/12/16 Furosemide [Lasix -] 20 mg PO DAILY #30 tablet 09/12/16 Insulin (Levemir) [Levemir Flexpen 20 units SQ DAILY #1 vial 09/12/16 -] Insulin Sliding Scale [Novolog 1 vial SQ TIDAC units 09/12/16 Vial Sliding Scale -] Metoprolol Tartrate [Lopressor -] 50 mg PO BID tablet 09/12/16 Sodium Bicarbonate - 325 mg PO DAILY tablet 09/12/16 Vital Signs Temperature 97.8 F 10/19/16 09:11 Pulse Rate 115 H 10/19/16 09:11 Respiratory Rate 20 10/19/16 09:11 Blood Pressure 154/100 10/19/16 09:11 O2 Sat by Pulse Oximetry (%) 95 10/19/16 09:00 Intake & Output 10/16/16 10/17/16 10/18/16 10/19/16 23:59 23:59 23:59 23:59 Intake Total 450 100 Balance 450 100 Weight 220 lb 220 lb Gen: NAD, awake and alert HEENT: NC/AT, MMM, No JVD CVS: RRR, No M/R Lungs: CTA (anteior exam) Abd: soft NT/ND Ext: Trace to 1+ edema in LE, Left TMA in dressing Neuro: AAOX3, no focal defects CBC, BMP 10/19/16 06:00 10/19/16 06:00 Laboratory Tests 10/19/16 06:00 Calcium 8.0 L Current Medications Acetaminophen (Tylenol -) 650 mg PO Q6H PRN PRN Reason: FEVER OR PAIN Last Admin: 10/19/16 09:17 Dose: 650 mg Albuterol/Ipratropium (Duoneb -) 1 amp NEB Q6H PRN PRN Reason: SHORTNESS OF BREATH Amlodipine Besylate (Norvasc -) 10 mg PO DAILY [facility] Last Admin: 10/19/16 09:14 Dose: 10 mg Docusate Sodium (Colace -) 100 mg PO DAILY [facility] Last Admin: 10/19/16 09:14 Dose: 100 mg Doxazosin Mesylate (Cardura -) 4 mg PO DAILY [facility] Last Admin: 10/19/16 09:14 Dose: 4 mg Duloxetine HCl (Cymbalta -) 60 mg PO DAILY [facility] Last Admin: 10/19/16 09:15 Dose: 60 mg Ferrous Sulfate (Feosol -) 325 mg PO DAILY [facility] Last Admin: 10/19/16 09:14 Dose: 325 mg Insulin Aspart (Novolog Vial Sliding Scale -) 1 vial SQ ACHS [facility] PRN Reason: Protocol Last Admin: 10/19/16 11:44 Dose: 4 units Insulin Detemir (Levemir Vial) 20 units SQ HS [facility] Last Admin: 10/18/16 21:53 Dose: Not Given Metoprolol Tartrate (Lopressor -) 25 mg PO BID [facility] Last Admin: 10/19/16 09:14 Dose: 25 mg Mirtazapine (Remeron -) 15 mg PO DAILY [facility] Last Admin: 10/19/16 09:14 Dose: 15 mg Oxycodone HCl (Roxicodone -) 5 mg PO Q6H PRN PRN Reason: PAIN Last Admin: 10/19/16 09:16 Dose: 5 mg Pregabalin (Lyrica -) 100 mg PO BID [facility] Last Admin: 10/19/16 09:13 Dose: 100 mg Sodium Bicarbonate (Sodium Bicarbonate -) 650 mg PO BID [facility] Last Admin: 10/19/16 09:14 Dose: 650 mg A/P 61 year old gentleman with PMhx of CKD Stage 4 with subnephrotic proteinuriea, IDDM, PVD, Chronic Anemia presented [place] with hyperkalemia and worsening kidney function. #Hyperkalmeia secondary to decreased excretion in setting of FROYLAN/CKD improve s/p medical management continue Low K diet No YASMIN/ARB at this time Trend K daily If BUN/Cr stable, can start Lasix for mangemetn of edema and to promote K excretion #FROYLAN on CKD renal function imporved Trend BUN/Cr maintain off fluids #PVD s/p TMA on wound Vac Abx as per primary #IDDM continue insulin #Chronic Anemia continue ADRIAN TIW Check iron studies Miguel Jansen DO
[2016-10-19 14:51] LABS: ANION GAP 7 (8-16); CALCIUM 7.6 mg/dL (8.5-10.1); CO2 24 mmol/L (21-32); CREATININE 2.9 mg/dL (0.7-1.3); GLUCOSE,RANDOM 93 mg/dL (74-106)
--- NOTE | 2016-10-19 18:29 | PN ---
Teaching Attending Note Name of Resident: Marlena Bello ATTENDING PHYSICIAN STATEMENT I saw and evaluated the patient. I reviewed the resident's note and discussed the case with the resident. I agree with the resident's findings and plan as documented. SUBJECTIVE: Patient has no complaints. OBJECTIVE: Vital Signs Period Temp Pulse Resp BP Sys/Gutierrez Pulse Ox Last 24 Hr 97.8 F-98.0 F 66-115 20-20 131-154/74-100 95-95 HEART: S1S2, tachycardic LUNGS: Clear ABDOMEN: Soft, non-tender, non-distended, normal BS EXTREMITIES: Trace edema. Left foot VAC in place ASSESSMENT AND PLAN: This is a 61 year old man with a history of type 2 DM with nephropathy and neuropathy, osteomyelitis of left foot, PVD, HTN, stage 4 CKD, COPD, anxiety, depression who presented to the ER from [place] for abnormal labs. 1. Acute kidney injury with hyperkalemia - Potassium improved - Creatinine back to baseline 2. Stage 4 CKD 3. Anemia secondary to CKD and chronic illness - Hemoglobin is stable - Continue ferrous sulfate 4. HTN - Continue Norvasc, Lopressor 5. Type 2 DM with diabetic peripheral neuropathy and nephropathy - Continue Levemir, Novolog sliding scale - Continue Lyrica for neuropathy 6. COPD - Stable - Continue DuoNeb as needed 7. Depression/anxiety -Continue Remeron, Cymbalta 8. PAD with chronic osteomyelitis of left foot - Continue wound VAC
[2016-10-19] MEDS: INSULIN DETEMIR 100 UNITS/ML MDV SQ SCH (22:04)
[2016-10-20] MEDS: oxyCODONE HCL 5 MG TABLET PO PRN ×3 (04:54→17:41)
[2016-10-20] MEDS: ACETAMINOPHEN 325 MG TABLET (FP) PO PRN ×2 (04:55→21:55)
[2016-10-20] MEDS: INSULIN SLIDING SCALE (NOVOLOG) 1 VIAL SQ SCH ×3 (06:31→17:40)
[2016-10-20 07:37] LABS: MCHC 31.7 g/dl (32.0-35.9); MEAN CELL VOLUME 78.9 fl (80-96); MEAN PLT VOLUME 7.1 fl (7.5-11.1); PLATELET COUNT 374 K/MM3 (134-434); RDW 25.4 % (11.9-15.9); WHITE BLOOD COUNT 4.8 K/mm3 (4.0-10.0)
[2016-10-20 08:07] LABS: ANION GAP 6 (8-16); CALCIUM 7.8 mg/dL (8.5-10.1); CO2 24 mmol/L (21-32); CREATININE 2.8 mg/dL (0.7-1.3); MAGNESIUM 1.7 mg/dL (1.8-2.4)
[2016-10-20 09:14] LABS: GLUCOSE,RANDOM 41 mg/dL (74-106)
--- NOTE | 2016-10-20 09:19 | PN ---
Progress Note (short form) - Note Progress Note: Renal follow up for CKD and hyperkalemia Pt seen and examined at the bedside no acute complaints making urine no sob, chest pain, N/V/D Vital Signs Temperature 97.8 F 10/20/16 08:07 Pulse Rate 123 H 10/20/16 08:07 Respiratory Rate 20 10/20/16 08:07 Blood Pressure 131/87 10/20/16 08:07 O2 Sat by Pulse Oximetry (%) 95 10/20/16 08:13 Intake & Output 10/17/16 10/18/16 10/19/16 10/20/16 23:59 23:59 23:59 23:59 Intake Total 450 770 200 Output Total 450 Balance 450 320 200 Weight 220 lb 220 lb Gen: NAD, awake and alert CVS: RRR, No M/R Lungs: CTA (anteior exam) Abd: soft NT/ND Ext: Trace to 1+ edema in LE, Left TMA in dressing CBC, BMP 10/20/16 07:19 10/20/16 07:19 Laboratory Tests 10/20/16 07:19 Calcium 7.8 L Magnesium 1.7 L Current Medications Acetaminophen (Tylenol -) 650 mg PO Q6H PRN PRN Reason: FEVER OR PAIN Last Admin: 10/20/16 04:55 Dose: 650 mg Albuterol/Ipratropium (Duoneb -) 1 amp NEB Q6H PRN PRN Reason: SHORTNESS OF BREATH Amlodipine Besylate (Norvasc -) 10 mg PO DAILY [facility] Last Admin: 10/19/16 09:14 Dose: 10 mg Docusate Sodium (Colace -) 100 mg PO DAILY [facility] Last Admin: 10/19/16 09:14 Dose: 100 mg Doxazosin Mesylate (Cardura -) 4 mg PO DAILY [facility] Last Admin: 10/19/16 09:14 Dose: 4 mg Duloxetine HCl (Cymbalta -) 60 mg PO DAILY [facility] Last Admin: 10/19/16 09:15 Dose: 60 mg Ferrous Sulfate (Feosol -) 325 mg PO DAILY [facility] Last Admin: 10/19/16 09:14 Dose: 325 mg Furosemide (Lasix -) 40 mg PO DAILY [facility] Insulin Aspart (Novolog Vial Sliding Scale -) 1 vial SQ ACHS [facility] PRN Reason: Protocol Last Admin: 10/20/16 06:31 Dose: Not Given Insulin Detemir (Levemir Vial) 20 units SQ HS [facility] Last Admin: 10/19/16 22:04 Dose: 20 units Metoprolol Tartrate (Lopressor -) 25 mg PO BID [facility] Last Admin: 10/19/16 22:04 Dose: 25 mg Mirtazapine (Remeron -) 15 mg PO DAILY [facility] Last Admin: 10/19/16 09:14 Dose: 15 mg Oxycodone HCl (Roxicodone -) 5 mg PO Q6H PRN PRN Reason: PAIN Last Admin: 10/20/16 04:54 Dose: 5 mg Pregabalin (Lyrica -) 100 mg PO BID [facility] Last Admin: 10/19/16 22:04 Dose: 100 mg Sodium Bicarbonate (Sodium Bicarbonate -) 650 mg PO BID [facility] Last Admin: 10/19/16 22:05 Dose: 650 mg A/P 61 year old gentleman with PMhx of CKD Stage 4 with subnephrotic proteinuriea, IDDM, PVD, Chronic Anemia presented from [place] with hyperkalemia and worsening kidney function. #Hyperkalmeia secondary to decreased excretion in setting of FROYLAN/CKD improved s/p medical mangement continue Low K diet start Lasix 40mg Daily #FROYLAN on CKD Renal function at baseline trend BUN/Cr dose all meds for Cr Cl less then 25 #PVD s/p TMA on wound Vac Abx as per primary #IDDM continue insulin #Chronic Anemia continue ADRIAN TIW Check iron studies Miguel Jansen DO
[2016-10-20] MEDS ORDERED: DULoxetine HCL 30 MG CAPSULE.DR (FP) PO ONE (10:01)
[2016-10-20] MEDS: FUROSEMIDE 40 MG TABLET (FP) PO SCH (10:06)
[2016-10-20] MEDS: PREGABALIN 50 MG CAPSULE PO SCH ×2 (10:06→21:54)
[2016-10-20] MEDS: SODIUM BICARBONATE 650 MG TABLET PO SCH ×2 (10:06→21:54)
[2016-10-20] MEDS: DULoxetine HCL 60 MG CAPSULE.DR PO SCH (10:08)
[2016-10-20] MEDS: FERROUS SO4 325 MG TABLET (FP) PO SCH (10:08)
[2016-10-20] MEDS: METOPROLOL TARTRATE 25 MG TABLET (FP) PO SCH ×2 (10:09→21:55)
[2016-10-20] MEDS: DOCUSATE SODIUM 100 MG CAPSULE (FP) PO SCH (10:09)
[2016-10-20] MEDS: amLODIPine BESYLATE 10 MG TABLET (FP) PO SCH (10:09)
[2016-10-20] MEDS: MIRTAZAPINE 15 MG TABLET (FP) PO SCH ×2 (10:10→21:54)
[2016-10-20] MEDS ORDERED: PT OWN MED DRAWER 7, Y5N ONE (11:35)
[2016-10-20] MEDS ORDERED: INSULIN (NOVOLOG) ASPART 100 UNITS/ML 10ML VIAL ONE (11:36)
[2016-10-20] MEDS ORDERED: oxyCODONE HCL 5 MG TABLET PO ONE (11:38)
[2016-10-20] MEDS: DOXAZOSIN MESYLATE 4 MG TABLET PO SCH (11:48)
--- NOTE | 2016-10-20 13:09 | PN ---
Physical Exam: SUBJECTIVE: Patient seen and examined. He complains of pain in his left foot. Glucose was 41 this morning. OBJECTIVE: Vital Signs Period Temp Pulse Resp BP Sys/Gutierrez Pulse Ox Last 24 Hr 97.6 F-98.0 F 66-123 20-20 131-142/74-101 94-95 GENERAL: The patient is awake, alert, and fully oriented, in no acute distress. NECK: Trachea midline, full range of motion, supple. LUNGS: Breath sounds equal, clear to auscultation bilaterally, no wheezes, no crackles, no accessory muscle use. HEART: Regular rate and rhythm, S1, S2 without murmur, rub or gallop. ABDOMEN: Soft, nontender, nondistended, normoactive bowel sounds, no guarding, no rebound, no hepatosplenomegaly, no masses. EXTREMITIES: Trace edema of LLE. Left foot wrapped with VAC in place. Laboratory Results - last 24 hr 10/19/16 10/19/16 10/19/16 13:40 16:26 21:53 WBC RBC Hgb Hct MCV MCHC RDW Plt Count MPV Sodium 142 Potassium 5.3 H Chloride 111 H Carbon Dioxide 24 Anion Gap 7 L BUN 53 H Creatinine 2.9 H POC Glucometer 144 255 Random Glucose 93 Calcium 7.6 L Magnesium 10/20/16 10/20/16 10/20/16 05:29 07:19 07:19 WBC 4.8 RBC 3.28 L Hgb 8.2 L Hct 25.9 L MCV 78.9 L MCHC 31.7 L RDW 25.4 H Plt Count 374 MPV 7.1 L Sodium 140 Potassium 5.3 H Chloride 110 H Carbon Dioxide 24 Anion Gap 6 L BUN 51 H Creatinine 2.8 H POC Glucometer 65 Random Glucose 41 L* D Calcium 7.8 L Magnesium 1.7 L 10/20/16 10/20/16 09:24 11:30 WBC RBC Hgb Hct MCV MCHC RDW Plt Count MPV Sodium Potassium Chloride Carbon Dioxide Anion Gap BUN Creatinine POC Glucometer 190 209 Random Glucose Calcium Magnesium Active Medications Generic Name Dose Route Start Last Admin Trade Name Freq PRN Reason Stop Dose Admin Acetaminophen 650 mg 10/17/16 22:15 10/20/16 04:55 Tylenol - PO 650 mg Q6H PRN Administration FEVER OR PAIN Albuterol/Ipratropium 1 amp 10/17/16 22:15 Duoneb - NEB Q6H PRN SHORTNESS OF BREATH Amlodipine Besylate 10 mg 10/18/16 10:00 10/20/16 10:09 Norvasc - PO 10 mg DAILY IGGY Administration Docusate Sodium 100 mg 10/18/16 10:00 10/20/16 10:09 Colace - PO 100 mg DAILY [facility]GG[facility] Administration Doxazosin Mesylate 4 mg 10/18/16 10:00 10/20/16 11:48 Cardura - PO 4 mg DAILY [facility]GG[facility] Administration Duloxetine HCl 60 mg 10/18/16 10:00 10/20/16 10:08 Cymbalta - PO 60 mg DAILY [facility]GG[facility] Administration Ferrous Sulfate 325 mg 10/18/16 10:00 10/20/16 10:08 Feosol - PO 325 mg DAILY IGG[facility] Administration Furosemide 40 mg 10/20/16 10:00 10/20/16 10:06 Lasix - PO 40 mg DAILY [facility] Administration Insulin Aspart 1 vial 10/18/16 07:00 10/20/16 11:49 Novolog Vial Sliding Scale - SQ 2 units ACHS IGG[facility] Administration Protocol Insulin Detemir 20 units 10/18/16 22:00 10/19/16 22:04 Levemir Vial SQ 20 units HS IGG[facility] Administration Metoprolol Tartrate 25 mg 10/18/16 10:00 10/20/16 10:09 Lopressor - PO 25 mg BID IGGY Administration Mirtazapine 15 mg 10/18/16 10:00 10/20/16 10:10 Remeron - PO Not Given DAILY [facility] Oxycodone HCl 10 mg 10/20/16 10:49 Roxicodone - PO Q6H PRN PAIN Pregabalin 100 mg 10/18/16 22:00 10/20/16 10:06 Lyrica - PO 100 mg BID IGGY Administration Sodium Bicarbonate 650 mg 10/18/16 10:00 10/20/16 10:06 Sodium Bicarbonate - PO 650 mg BID IGGY Administration ASSESSMENT/PLAN: This is a 61 year old man with a history of type 2 DM with nephropathy and neuropathy, osteomyelitis of left foot, PVD, HTN, stage 4 CKD, COPD, anxiety, depression who presented to the ER from [place] for abnormal labs. 1. Acute kidney injury with hyperkalemia - Potassium improved - Creatinine is at baseline - Lasix started 2. Stage 4 CKD 3. Anemia secondary to CKD and chronic illness - Hemoglobin is stable - Continue ferrous sulfate, Epogen 4. HTN - Continue Norvasc, Lopressor 5. Type 2 DM with diabetic peripheral neuropathy and nephropathy - Discontinue Novolog sliding scale at bedtime secondary to hypoglycemia - Continue Levemir, Novolog sliding scale with meals - Continue Lyrica for neuropathy 6. COPD - Stable - Continue DuoNeb as needed 7. Depression/anxiety -Continue Remeron, Cymbalta 8. PAD with chronic osteomyelitis of left foot - Continue wound VAC - Increase oxycodone for better pain control Visit type - Emergency Visit Emergency Visit: Yes ED Registration Date: 10/17/16 Care time: The patient presented to the Emergency Department on the above date and was hospitalized for further evaluation of their emergent condition. - New Patient This patient is new to me today: No - Critical Care Critical Care patient: No - Discharge Referral Referred to [facility] Med P.C.: No
--- NOTE | 2016-10-20 16:26 | CON.CARD ---
Consult Consult Specialty:: Cardiology Referred by:: Hospitalist Reason for Consultation:: Cardiac evaluation - History of Present Illness Chief Complaint: Hyperkalemia History of Present Illness: Patient is a 61 year old male with underlying history of hypertension, type 2 diabetes mellitus, PVD, CKD (stage 4), osteomyelitis post left TMA, depression and GERD who was BIBA from [facility] with abnormal lab. Patient had elevated potassium level of 6.7. Patient was treated and level dropped to 5.4. He denies chest pain, SOB or palpitations. He denies paroxysmal nocturnal dyspnea or orthopnea. He denies fever or chills. He denies headache or lightheadedness. 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: Peripheral Neuropathy Cardio/Vascular: Yes: HTN Gastrointestinal: Yes: GERD Psych: Yes: Depression Rheumatology: Yes: Other (history of osteomyelitis) Endocrine: Yes: Diabetes Mellitus - Past Surgical History Past Surgical History: Yes: Amputation (transmetatarsal of Left foot) - Alcohol/Substance Use Hx Alcohol Use: No Number of Drinks Daily: 2 (weekends) - Smoking History Smoking history: Never smoked Have you smoked in the past 12 months: No Aproximately how many cigarettes per day: 0 - Social History Usual Living Arrangement: [facility] ADL: Support Services History of Recent Travel: No Home Medications - Allergies Allergies/Adverse Reactions: Allergies Allergy/AdvReac Type Severity Reaction Status Date / Time shellfish derived Allergy Severe "HIVES" Verified 10/17/16 19:13 No Known Drug Allergies Allergy Verified 10/17/16 19:13 - Home Medications Home Medications: Ambulatory Orders Amlodipine Besylate [Norvasc -] 10 mg PO DAILY 11/07/14 Ascorbate Calcium [Vitamin C] 500 mg PO DAILY 11/07/14 Duloxetine HCl 30 mg PO DAILY 11/07/14 Ferrous Sulfate [Feosol] 325 mg PO DAILY 11/07/14 Folic Acid - 1 mg PO DAILY 11/07/14 Trazodone HCl 300 mg PO HS 11/07/14 Zinc Sulfate 220 mg PO DAILY 11/07/14 Doxazosin Mesylate [Cardura -] 4 mg PO DAILY #30 tablet 11/24/14 Aspirin [ASA -] 81 mg PO DAILY 03/08/16 Oxycodone HCl/Acetaminophen [Percocet 5-325 mg Tablet] 1 tab PO QID #120 tablet MDD 4 08/01/16 Mirtazapine [Remeron -] 30 mg PO HS 08/19/16 Pregabalin [Lyrica -] 100 mg PO BID MDD 2 08/19/16 Albuterol 0.083% Nebulizer Coretta [Ventolin 0.083% Nebulizer Soln -] 1 amp NEB Q4H PRN #0 amp 09/12/16 Albuterol 2.5/Ipratropium 0.5 [Duoneb -] 1 amp NEB QIDR amp 09/12/16 Calcium Acetate [Phoslo -] 1,334 mg PO TIDCM #180 capsule 09/12/16 Ceftriaxone [Rocephin 2Gm Ivpb (Pre-Docked)] 100 ml IVPB DAILY #19 bag 09/12/16 Epoetin Joe [Procrit -] 10,000 unit SQ TUTHSA #12 ml 09/12/16 Furosemide [Lasix -] 20 mg PO DAILY #30 tablet 09/12/16 Insulin (Levemir) [Levemir Flexpen -] 20 units SQ DAILY #1 vial 09/12/16 Insulin Sliding Scale [Novolog Vial Sliding Scale -] 1 vial SQ TIDAC units Metoprolol Tartrate [Lopressor -] 50 mg PO BID tablet 09/12/16 Sodium Bicarbonate - 325 mg PO DAILY tablet 09/12/16 Family Disease History - Family Disease History Family Disease History: Diabetes: Mother Review of Systems - Review of Systems Constitutional: denies: Chills, Fever Cardiovascular: denies: Chest Pain, Palpitations, Shortness of Breath Respiratory: denies: Cough, Hemoptysis, Orthopnea, PND, SOB, SOB on Exertion Gastrointestinal: denies: Abdominal Pain, Constipation, Diarrhea, Melena, Nausea , Rectal Bleeding, Vomiting Neurological: denies: Dizziness, Headache, Seizure, Syncope Vital Signs: Vital Signs Temperature 97.6 F 10/20/16 14:41 Pulse Rate 115 H 10/20/16 14:41 Respiratory Rate 20 10/20/16 14:41 Blood Pressure 142/84 10/20/16 14:41 O2 Sat by Pulse Oximetry (%) 95 10/20/16 08:13 Neck: Yes: Supple Respiratory: Yes: CTA Bilaterally Gastrointestinal: Yes: Normal Bowel Sounds, Soft. No: Tenderness Cardiovascular: Yes: Regular Rate and Rhythm JVD: No Carotid Bruit: No PMI: Non-Displaced Heart Sounds: Yes: S1, S2 Extremities: Yes: Amputation (left TMA) Edema: No - Other Data Labs, Other Data: CBC, BMP 10/20/16 07:19 10/20/16 07:19 INR, PTT INR 1.21 (0.82-1.09) H 10/17/16 20:05 Sinus rhythm with sinus arrhythmia Problem List - Problems (1) Type 2 diabetes mellitus with foot ulcer Code(s): E11.621 - TYPE 2 DIABETES MELLITUS WITH FOOT ULCER L97.509 - NON-PRESSURE CHRONIC ULCER OTH PRT UNSP FOOT W UNSP SEVERITY (2) FROYLAN (acute kidney injury) Code(s): N17.9 - ACUTE KIDNEY FAILURE, UNSPECIFIED (3) Acute on chronic diastolic heart failure Code(s): I50.33 - ACUTE ON CHRONIC DIASTOLIC (CONGESTIVE) HEART FAILURE (4) Hyperkalemia Code(s): E87.5 - HYPERKALEMIA (5) Hypoglycemia Code(s): E16.2 - HYPOGLYCEMIA, UNSPECIFIED (6) 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 Code(s): E11.9 - TYPE 2 DIABETES MELLITUS WITHOUT COMPLICATIONS Qualifiers: 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 type: type 2 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 complication status: without complication 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 exterminator termite insulin use: without fpc use Qualified Code(s): E11.9 - Type 2 diabetes mellitus without complications (7) Diabetic neuropathy Code(s): E11.40 - TYPE 2 DIABETES MELLITUS WITH DIABETIC NEUROPATHY, UNSP Qualifiers: 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 type: type 2 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 complication detail: diabetic polyneuropathy Qualified Code(s): E11.42 - Type 2 diabetes mellitus with diabetic polyneuropathy (8) HTN (hypertension) Code(s): I10 - ESSENTIAL (PRIMARY) HYPERTENSION Qualifiers: Hypertension type: essential hypertension Qualified Code(s): I10 - Essential (primary) hypertension (9) Osteomyelitis Code(s): M86.9 - OSTEOMYELITIS, UNSPECIFIED Qualifiers: Osteomyelitis type: other chronic Osteomyelitis location: foot (10) S/P amputation Code(s): Z89.9 - ACQUIRED ABSENCE OF LIMB, UNSPECIFIED Assessment/Plan 1. Hyperkalemia with underlying renal dysfunction 2. Hypertension 3. Type 2 diabetes mellitus 4. PVD 5. History of osteomyelitis and left TMA (amputation) PLAN: 1. Monitor electrolytes and renal function. Correct K 2. Continue Metoprolol and Amlodipine 3. ASA 4. Currently on diuretics 5. Transthoracic echocardiography to assess LV and valvular function if not done recently 6. Wound care Further plans are to follow Bay Diallo MD
[2016-10-20] MEDS: INSULIN DETEMIR 100 UNITS/ML MDV SQ SCH (21:55)
[2016-10-21] MEDS: INSULIN SLIDING SCALE (NOVOLOG) 1 VIAL SQ SCH ×3 (06:18→17:27)
[2016-10-21] MEDS: oxyCODONE HCL 5 MG TABLET PO PRN ×3 (06:58→17:12)
[2016-10-21 07:34] LABS: BASOPHIL 0.6 % (0-2.0); EOSINOPHIL 10.4 % (0-4.5); MCH 25.2 pg (25.7-33.7); MCHC 31.8 g/dl (32.0-35.9); MEAN CELL VOLUME 79.3 fl (80-96); MEAN PLT VOLUME 7.2 fl (7.5-11.1); NEUTROPHILS 56.1 % (42.8-82.8); PLATELET COUNT 357 K/MM3 (134-434); RDW 24.7 % (11.9-15.9); WHITE BLOOD COUNT 5.3 K/mm3 (4.0-10.0)
[2016-10-21 08:17] LABS: ANION GAP 9 (8-16); CO2 23 mmol/L (21-32); CREATININE 2.7 mg/dL (0.7-1.3); GLUCOSE,RANDOM 119 mg/dL (74-106)
[2016-10-21 08:18] LABS: CALCIUM 7.9 mg/dL (8.5-10.1); MAGNESIUM 1.7 mg/dL (1.8-2.4)
[2016-10-21] MEDS ORDERED: DULoxetine HCL 30 MG CAPSULE.DR (FP) PO ONE (09:11)
[2016-10-21] MEDS ORDERED: PT OWN MED DRAWER 7, Y5N ONE (09:12)
[2016-10-21] MEDS: DOXAZOSIN MESYLATE 4 MG TABLET PO SCH (09:13)
[2016-10-21] MEDS: DOCUSATE SODIUM 100 MG CAPSULE (FP) PO SCH (09:13)
[2016-10-21] MEDS: FUROSEMIDE 40 MG TABLET (FP) PO SCH (09:14)
[2016-10-21] MEDS: amLODIPine BESYLATE 10 MG TABLET (FP) PO SCH (09:14)
[2016-10-21] MEDS: DULoxetine HCL 60 MG CAPSULE.DR PO SCH (09:14)
[2016-10-21] MEDS: FERROUS SO4 325 MG TABLET (FP) PO SCH (09:15)
[2016-10-21] MEDS: PREGABALIN 50 MG CAPSULE PO SCH ×2 (09:16→21:13)
[2016-10-21] MEDS: METOPROLOL TARTRATE 25 MG TABLET (FP) PO SCH ×2 (09:16→21:13)
[2016-10-21] MEDS: SODIUM BICARBONATE 650 MG TABLET PO SCH ×2 (09:17→21:14)
[2016-10-21 09:43] LABS: HYPOCHROMIA 1+; PLATELET ESTIMATE INCREASED (NORMAL)
[2016-10-21 09:44] LABS: ANISOCYTOSIS 2+; MICROCYTOSIS 1+
--- NOTE | 2016-10-21 09:52 | PN ---
Progress Note, Physician Chief Complaint: Not in distress History of Present Illness: Patient was seen and examined. Awake and alert. Chart was reviewed Denies chest pain, SOB or palpitations Complains of foot pain intermittently - Current Medication List Current Medications: Active Medications Acetaminophen (Tylenol -) 650 mg PO Q6H PRN PRN Reason: FEVER OR PAIN Last Admin: 10/20/16 04:55 Dose: 650 mg Albuterol/Ipratropium (Duoneb -) 1 amp NEB Q6H PRN PRN Reason: SHORTNESS OF BREATH Amlodipine Besylate (Norvasc -) 10 mg PO DAILY [facility] Last Admin: 10/21/16 09:14 Dose: 10 mg Docusate Sodium (Colace -) 100 mg PO DAILY [facility] Last Admin: 10/21/16 09:13 Dose: 100 mg Doxazosin Mesylate (Cardura -) 4 mg PO DAILY [facility] Last Admin: 10/21/16 09:13 Dose: 4 mg Duloxetine HCl (Cymbalta -) 60 mg PO DAILY [facility] Last Admin: 10/21/16 09:14 Dose: 60 mg Ferrous Sulfate (Feosol -) 325 mg PO DAILY [facility] Last Admin: 10/21/16 09:15 Dose: 325 mg Furosemide (Lasix -) 40 mg PO DAILY [facility] Last Admin: 10/21/16 09:14 Dose: 40 mg Insulin Aspart (Novolog Vial Sliding Scale -) 1 vial SQ TIDAC [facility] PRN Reason: Protocol Last Admin: 10/21/16 06:18 Dose: Not Given Insulin Detemir (Levemir Vial) 20 units SQ [facility] Last Admin: 10/20/16 21:55 Dose: Not Given Metoprolol Tartrate (Lopressor -) 25 mg PO BID [facility] Last Admin: 10/21/16 09:16 Dose: 25 mg Mirtazapine (Remeron -) 15 mg PO HS [facility] Last Admin: 10/20/16 21:54 Dose: 15 mg Oxycodone HCl (Roxicodone -) 10 mg PO Q6H PRN PRN Reason: PAIN Last Admin: 10/21/16 06:58 Dose: 10 mg Pregabalin (Lyrica -) 100 mg PO BID [facility] Last Admin: 10/21/16 09:16 Dose: 100 mg Sodium Bicarbonate (Sodium Bicarbonate -) 650 mg PO BID [facility] Last Admin: 10/21/16 09:17 Dose: 650 mg - Objective Vital Signs: Vital Signs Temperature 97.2 F L 10/21/16 06:00 Pulse Rate 78 10/21/16 08:02 Respiratory Rate 20 10/21/16 06:00 Blood Pressure 140/100 10/21/16 08:02 O2 Sat by Pulse Oximetry (%) 95 10/20/16 08:13 Neck: Yes: Supple Cardiovascular: Yes: Regular Rate and Rhythm, S1, S2 Respiratory: Yes: CTA Bilaterally Gastrointestinal: Yes: Normal Bowel Sounds, Soft. No: Tenderness Extremities: Yes: Amputation Edema: No Wound/Incision: Yes: Dressing Dry and Intact Additional Findings/Remarks: - Review of Systems Constitutional: denies: Chills, Fever Cardiovascular: denies: Palpitations. denies: Chest Pain, Shortness of Breath Respiratory: denies: Cough. denies: Hemoptysis, Orthopnea, PND, SOB, SOB on Exertion, Wheezing Gastrointestinal: denies: Abdominal Pain, Constipation, denies: Diarrhea, Melena , Nausea, Rectal Bleeding, Vomiting Musculoskeletal: denies: Joint Pain Neurological: denies: Dizziness, Headache, Seizure, Syncope, Unsteady Gait, Weakness Labs: CBC, BMP 10/21/16 05:35 10/21/16 05:35 Problem List - Problems (1) Type 2 diabetes mellitus with foot ulcer Code(s): E11.621 - TYPE 2 DIABETES MELLITUS WITH FOOT ULCER L97.509 - NON-PRESSURE CHRONIC ULCER OTH PRT UNSP FOOT W UNSP SEVERITY (2) FROYLAN (acute kidney injury) Code(s): N17.9 - ACUTE KIDNEY FAILURE, UNSPECIFIED (3) Acute on chronic diastolic heart failure Code(s): I50.33 - ACUTE ON CHRONIC DIASTOLIC (CONGESTIVE) HEART FAILURE (4) Hyperkalemia Code(s): E87.5 - HYPERKALEMIA (5) Hypoglycemia Code(s): E16.2 - HYPOGLYCEMIA, UNSPECIFIED (6) 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 Code(s): E11.9 - TYPE 2 DIABETES MELLITUS WITHOUT COMPLICATIONS Qualifiers: 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 type: type 2 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 complication status: without complication 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 long-term insulin use: without school counsellor use Qualified Code(s): E11.9 - Type 2 diabetes mellitus without complications (7) Diabetic neuropathy Code(s): E11.40 - TYPE 2 DIABETES MELLITUS WITH DIABETIC NEUROPATHY, UNSP Qualifiers: 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 type: type 2 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 complication detail: diabetic polyneuropathy Qualified Code(s): E11.42 - Type 2 diabetes mellitus with diabetic polyneuropathy (8) HTN (hypertension) Code(s): I10 - ESSENTIAL (PRIMARY) HYPERTENSION Qualifiers: Hypertension type: essential hypertension Qualified Code(s): I10 - Essential (primary) hypertension (9) Osteomyelitis Code(s): M86.9 - OSTEOMYELITIS, UNSPECIFIED Qualifiers: Osteomyelitis type: other chronic Osteomyelitis location: foot (10) S/P amputation Code(s): Z89.9 - ACQUIRED ABSENCE OF LIMB, UNSPECIFIED Assessment/Plan 1. Hyperkalemia with underlying renal dysfunction 2. Hypertension 3. Type 2 diabetes mellitus 4. PVD 5. History of osteomyelitis and left TMA (amputation) PLAN: 1. Monitor electrolytes and renal function. Correct K 2. Continue Metoprolol and Amlodipine 3. ASA 4. Currently on diuretics 5. Transthoracic echocardiography to assess LV and valvular function if not done recently 6. Continue wound care Further plans are to follow Bay Diallo MD
[2016-10-21] MEDS ORDERED: FUROSEMIDE 40 MG TABLET (FP) PO ONE (10:08)
--- NOTE | 2016-10-21 10:32 | PN ---
Progress Note (short form) - Note Progress Note: Renal follow up for CKD and hyperkalemia Pt seen and examined at the bedside has mild cough with sputum production has pain in foot no fever, chills no sob Vital Signs Temperature 97.2 F L 10/21/16 06:00 Pulse Rate 78 10/21/16 08:02 Respiratory Rate 20 10/21/16 06:00 Blood Pressure 140/100 10/21/16 08:02 O2 Sat by Pulse Oximetry (%) 95 10/20/16 08:13 Intake & Output 10/18/16 10/19/16 10/20/16 10/21/16 23:59 23:59 23:59 23:59 Intake Total 174 339 3182 100 Output Total 450 500 Balance 359 565 6114 100 Weight 220 lb Gen: NAD, awake and alert CVS: RRR, No M/R Lungs: CTA Abd: soft NT/ND Ext: Trace to 1+ edema in LE, Left TMA in dressing CBC, BMP 10/21/16 05:35 10/21/16 05:35 Laboratory Tests 10/21/16 05:35 Calcium 7.9 L Phosphorus 5.0 H Magnesium 1.7 L Current Medications Acetaminophen (Tylenol -) 650 mg PO Q6H PRN PRN Reason: FEVER OR PAIN Last Admin: 10/20/16 04:55 Dose: 650 mg Albuterol/Ipratropium (Duoneb -) 1 amp NEB Q6H PRN PRN Reason: SHORTNESS OF BREATH Amlodipine Besylate (Norvasc -) 10 mg PO DAILY [facility] Last Admin: 10/21/16 09:14 Dose: 10 mg Calcium Acetate (Phoslo -) 667 mg PO TIDCM [facility] Docusate Sodium (Colace -) 100 mg PO DAILY [facility] Last Admin: 10/21/16 09:13 Dose: 100 mg Doxazosin Mesylate (Cardura -) 4 mg PO DAILY [facility] Last Admin: 10/21/16 09:13 Dose: 4 mg Duloxetine HCl (Cymbalta -) 60 mg PO DAILY [facility] Last Admin: 10/21/16 09:14 Dose: 60 mg Ferrous Sulfate (Feosol -) 325 mg PO DAILY [facility] Last Admin: 10/21/16 09:15 Dose: 325 mg Furosemide (Lasix -) 80 mg PO DAILY [facility] Insulin Aspart (Novolog Vial Sliding Scale -) 1 vial SQ TIDAC [facility] PRN Reason: Protocol Last Admin: 10/21/16 06:18 Dose: Not Given Insulin Detemir (Levemir Vial) 20 units SQ [facility] Last Admin: 10/20/16 21:55 Dose: Not Given Metoprolol Tartrate (Lopressor -) 25 mg PO BID [facility] Last Admin: 10/21/16 09:16 Dose: 25 mg Mirtazapine (Remeron -) 15 mg PO HS [facility] Last Admin: 10/20/16 21:54 Dose: 15 mg Oxycodone HCl (Roxicodone -) 10 mg PO Q6H PRN PRN Reason: PAIN Last Admin: 10/21/16 06:58 Dose: 10 mg Pregabalin (Lyrica -) 100 mg PO BID [facility] Last Admin: 10/21/16 09:16 Dose: 100 mg Sodium Bicarbonate (Sodium Bicarbonate -) 650 mg PO BID [facility] Last Admin: 10/21/16 09:17 Dose: 650 mg A/P 61 year old gentleman with PMhx of CKD Stage 4 with subnephrotic proteinuriea, IDDM, PVD, Chronic Anemia presented from [place] with hyperkalemia and worsening kidney function. #Hyperkalmeia secondary to decreased excretion in setting of FROYLAN/CKD K is improved but still high normal increase Lasix to 80mg Daily Low K diet #FROYLAN on CKD Renal function at baseline Trend BUN/Cr with increased lasix dose #Hyperphosphatemia Start Calcium acetate TID with meals low Phos diet #PVD s/p TMA on wound Vac Abx as per primary #IDDM continue insulin #Chronic Anemia continue ADRIAN TIW Check iron studies Miguel Jansen DO
[2016-10-21] MEDS ORDERED: INSULIN (NOVOLOG) ASPART 100 UNITS/ML 10ML VIAL ONE ×2 (11:18→17:24)
[2016-10-21] MEDS: CALCIUM ACETATE 667 MG CAPSULE (FP) PO SCH ×2 (11:20→17:13)
--- NOTE | 2016-10-21 12:02 | PN ---
Physical Exam: SUBJECTIVE: Patient seen and examined OBJECTIVE: Vital Signs Period Temp Pulse Resp BP Sys/Gutierrez Pulse Ox Last 24 Hr 96.7 F-97.6 F 78-115 20-20 128-143/84-100 Neck: Yes: Supple Cardiovascular: Yes: Regular Rate and Rhythm, S1, S2 Respiratory: Yes: CTA Bilaterally Gastrointestinal: Yes: Normal Bowel Sounds, Soft. No: Tenderness Extremities: Yes: Amputation Edema: No Wound/Incision: Yes: Dressing Dry and Intact Additional Findings/Remarks: Laboratory Results - last 24 hr 10/20/16 10/20/16 10/21/16 16:01 21:54 05:35 WBC 5.3 RBC 3.30 L Hgb 8.3 L Hct 26.2 L MCV 79.3 L MCHC 31.8 L RDW 24.7 H Plt Count 357 MPV 7.2 L Neutrophils % 56.1 Lymphocytes % 22.2 D Monocytes % 10.7 H Eosinophils % 10.4 H Basophils % 0.6 Platelet Estimate Increased Platelet Comment No clumping noted Hypochromic-Microcytic 1+ Anisocytosis 2+ Microcytosis 1+ Sodium Potassium Chloride Carbon Dioxide Anion Gap BUN Creatinine POC Glucometer 175 169 Random Glucose Calcium Phosphorus Magnesium 10/21/16 10/21/16 10/21/16 05:35 05:47 11:13 WBC RBC Hgb Hct MCV MCHC RDW Plt Count MPV Neutrophils % Lymphocytes % Monocytes % Eosinophils % Basophils % Platelet Estimate Platelet Comment Hypochromic-Microcytic Anisocytosis Microcytosis Sodium 141 Potassium 5.4 H Chloride 109 H Carbon Dioxide 23 Anion Gap 9 BUN 49 H Creatinine 2.7 H POC Glucometer 125 359 Random Glucose 119 H D Calcium 7.9 L Phosphorus 5.0 H Magnesium 1.7 L Active Medications Generic Name Dose Route Start Last Admin Trade Name Freq PRN Reason Stop Dose Admin Acetaminophen 650 mg 10/17/16 22:15 10/20/16 04:55 Tylenol - PO 650 mg Q6H PRN Administration FEVER OR PAIN Albuterol/Ipratropium 1 amp 10/17/16 22:15 Duoneb - NEB Q6H PRN SHORTNESS OF BREATH Amlodipine Besylate 10 mg 10/18/16 10:00 10/21/16 09:14 Norvasc - PO 10 mg DAILY I[facility] Administration Calcium Acetate 667 mg 10/21/16 12:00 10/21/16 11:20 Phoslo - PO 667 mg TIDCM IGGY Administration Docusate Sodium 100 mg 10/18/16 10:00 10/21/16 09:13 Colace - PO 100 mg DAILY IGGY Administration Doxazosin Mesylate 4 mg 10/18/16 10:00 10/21/16 09:13 Cardura - PO 4 mg DAILY IGG[facility] Administration Duloxetine HCl 60 mg 10/18/16 10:00 10/21/16 09:14 Cymbalta - PO 60 mg DAILY IGG[facility] Administration Ferrous Sulfate 325 mg 10/18/16 10:00 10/21/16 09:15 Feosol - PO 325 mg DAILY I[facility] Administration Furosemide 80 mg 10/22/16 10:00 Lasix - PO DAILY [facility] Insulin Aspart 1 vial 10/20/16 16:30 10/21/16 11:20 Novolog Vial Sliding Scale - SQ 10 units TIDAC [facility] Administration Protocol Insulin Detemir 20 units 10/18/16 22:00 10/20/16 21:55 Levemir Vial SQ Not Given HS [facility] Metoprolol Tartrate 25 mg 10/18/16 10:00 10/21/16 09:16 Lopressor - PO 25 mg BID IGG[facility] Administration Mirtazapine 15 mg 10/20/16 22:00 10/20/16 21:54 Remeron - PO 15 mg HS IGG[facility] Administration Oxycodone HCl 10 mg 10/20/16 10:49 10/21/16 11:44 Roxicodone - PO 10 mg Q6H PRN Administration PAIN Pregabalin 100 mg 10/18/16 22:00 10/21/16 09:16 Lyrica - PO 100 mg BID IGGY Administration Sodium Bicarbonate 650 mg 10/18/16 10:00 10/21/16 09:17 Sodium Bicarbonate - PO 650 mg BID IGGY Administration ASSESSMENT/PLAN: This is a 61 year old man with a history of type 2 DM with nephropathy and neuropathy, osteomyelitis of left foot, PVD, HTN, stage 4 CKD, COPD, anxiety, depression who presented to the ER from [place] for abnormal labs. 1. Acute kidney injury with hyperkalemia - Creatinine is at baseline - on lasix 2. Stage 4 CKD 3. Anemia secondary to CKD and chronic illness - Hemoglobin is stable - Continue ferrous sulfate, Epogen 4. HTN - Continue Norvasc, Lopressor 5. Type 2 DM with diabetic peripheral neuropathy and nephropathy - Discontinue Novolog sliding scale at bedtime secondary to hypoglycemia - Continue Levemir, Novolog sliding scale with meals - Continue Lyrica for neuropathy 6. COPD - Stable - Continue DuoNeb as needed 7. Depression/anxiety -Continue Remeron, Cymbalta 8. PAD with chronic osteomyelitis of left foot - Continue wound VAC - oxycodone forpain control - needs PT OT eval / off loading boot for ambulation
[2016-10-21] MEDS ORDERED: SODIUM POLYSTYRENE SULFONATE 15 GM/60 ML BOTTLE PO ONE (12:30)
[2016-10-21] MEDS: MIRTAZAPINE 15 MG TABLET (FP) PO SCH (21:13)
[2016-10-21] MEDS: INSULIN DETEMIR 100 UNITS/ML MDV SQ SCH (21:18)
--- NOTE | 2016-10-21 21:55 | EKG ---
Test Reason : Blood Pressure : / mmHG Vent. Rate : 063 BPM Atrial Rate : 063 BPM P-R Int : 228 ms QRS Dur : 088 ms QT Int : 438 ms P-R-T Axes : 098 078 098 degrees QTc Int : 448 ms SINUS RHYTHM WITH 1ST DEGREE A-V BLOCK SEPTAL INFARCT , AGE UNDETERMINED NONSPECIFIC T WAVE ABNORMALITY ABNORMAL ECG WHEN COMPARED WITH ECG OF 17-OCT-2016 20:12, ME INTERVAL HAS INCREASED NONSPECIFIC T WAVE ABNORMALITY, WORSE IN LATERAL LEADS Confirmed by JESUS BORJAS MD ([id number]) on 10/21/2016 9:55:03 PM Referred By: FRANCIS DOMINGUEZ Confirmed By:JESUS BORJAS MD
[2016-10-22] MEDS: oxyCODONE HCL 5 MG TABLET PO PRN ×4 (00:54→21:28)
[2016-10-22] MEDS: ACETAMINOPHEN 325 MG TABLET (FP) PO PRN ×2 (00:55→08:11)
[2016-10-22] MEDS: INSULIN SLIDING SCALE (NOVOLOG) 1 VIAL SQ SCH ×3 (06:06→17:42)
[2016-10-22 07:47] LABS: BASOPHIL 0.5 % (0-2.0); EOSINOPHIL 10.5 % (0-4.5); MCH 25.3 pg (25.7-33.7); MCHC 32.3 g/dl (32.0-35.9); MEAN CELL VOLUME 78.2 fl (80-96); MEAN PLT VOLUME 7.4 fl (7.5-11.1); NEUTROPHILS 54.5 % (42.8-82.8); PLATELET COUNT 375 K/MM3 (134-434); WHITE BLOOD COUNT 5.8 K/mm3 (4.0-10.0)
[2016-10-22] MEDS: CALCIUM ACETATE 667 MG CAPSULE (FP) PO SCH ×3 (08:11→17:39)
[2016-10-22 08:35] LABS: ANION GAP 8 (8-16); CO2 25 mmol/L (21-32); CREATININE 2.7 mg/dL (0.7-1.3); GLUCOSE,RANDOM 132 mg/dL (74-106); MAGNESIUM 1.8 mg/dL (1.8-2.4); PHOSPHOROUS 5.7 mg/dL (2.5-4.9)
--- NOTE | 2016-10-22 09:09 | PN ---
Progress Note, Physician History of Present Illness: No complaints. - Current Medication List Current Medications: Active Medications Acetaminophen (Tylenol -) 650 mg PO Q6H PRN PRN Reason: FEVER OR PAIN Last Admin: 10/22/16 08:11 Dose: 650 mg Albuterol/Ipratropium (Duoneb -) 1 amp NEB Q6H PRN PRN Reason: SHORTNESS OF BREATH Amlodipine Besylate (Norvasc -) 10 mg PO DAILY [facility] Last Admin: 10/21/16 09:14 Dose: 10 mg Calcium Acetate (Phoslo -) 667 mg PO TIDCM [facility] Last Admin: 10/22/16 08:11 Dose: 667 mg Docusate Sodium (Colace -) 100 mg PO DAILY [facility] Last Admin: 10/21/16 09:13 Dose: 100 mg Doxazosin Mesylate (Cardura -) 4 mg PO DAILY [facility] Last Admin: 10/21/16 09:13 Dose: 4 mg Duloxetine HCl (Cymbalta -) 60 mg PO DAILY [facility] Ferrous Sulfate (Feosol -) 325 mg PO DAILY [facility] Last Admin: 10/21/16 09:15 Dose: 325 mg Furosemide (Lasix -) 80 mg PO DAILY [facility] Insulin Aspart (Novolog Vial Sliding Scale -) 1 vial SQ TIDAC [facility] PRN Reason: Protocol Last Admin: 10/22/16 06:06 Dose: 2 units Insulin Detemir (Levemir Vial) 20 units SQ [facility] Last Admin: 10/21/16 21:18 Dose: Not Given Metoprolol Tartrate (Lopressor -) 25 mg PO BID [facility] Last Admin: 10/21/16 21:13 Dose: 25 mg Mirtazapine (Remeron -) 15 mg PO [facility] Last Admin: 10/21/16 21:13 Dose: 15 mg Oxycodone HCl (Roxicodone -) 10 mg PO Q6H PRN PRN Reason: PAIN Last Admin: 10/22/16 08:10 Dose: 10 mg Pregabalin (Lyrica -) 100 mg PO BID [facility] Last Admin: 10/21/16 21:13 Dose: 100 mg Sodium Bicarbonate (Sodium Bicarbonate -) 650 mg PO BID [facility] Last Admin: 10/21/16 21:14 Dose: 650 mg - Objective Vital Signs: Vital Signs Temperature 98.4 F 10/22/16 06:00 Pulse Rate 104 H 06/26/17 06:00 Respiratory Rate 20 10/22/16 06:00 Blood Pressure 156/90 10/22/16 06:00 O2 Sat by Pulse Oximetry (%) 96 10/21/16 21:00 Constitutional: Yes: No Distress, Calm, Thin Neck: Yes: Supple Cardiovascular: Yes: Tachycardia Respiratory: Yes: Regular, CTA Bilaterally Gastrointestinal: Yes: Normal Bowel Sounds, Soft Edema: No Labs: CBC, BMP 10/22/16 05:57 10/22/16 05:57 INR, PTT INR 1.21 (0.82-1.09) H 10/17/16 20:05 Assessment/Plan 1. Acut on CKD with hyperkalemia with underlying renal dysfunction 2. Hypertension 3. Type 2 diabetes mellitus 4. PVD with history of osteomyelitis and left TMA (amputation) 5. Anemia of chronic kidney disease PLAN: 1. Monitor electrolytes and renal function. Correct K 2. Increase Metoprolol 50 bid and Amlodipine 10 qd, Cardura 4 qd 3. Resume ASA 81 qd 4. Currently on Lasix 80 qd 5. Transthoracic echocardiography to assess LV and valvular function if not done recently 6. Continue wound care
--- NOTE | 2016-10-22 10:07 | PN ---
Physical Exam: SUBJECTIVE: Patient seen and examined at bedside this AM. AAO and at mental status baseline. Afebrile overnight with no acute events. States he is breathing fine & denies any chest pain. Wound care visit later today. OBJECTIVE: Vital Signs Period Temp Pulse Resp BP Sys/Gutierrez Pulse Ox Last 24 Hr 97.4 F-98.6 F 100-104 20-20 123-156/76-100 96 GENERAL: The patient is awake, alert, and fully oriented, in no acute distress. LUNGS: Breath sounds equal, clear to auscultation bilaterally, no wheezes, no crackles, no accessory muscle use. HEART: Regular rate and rhythm, S1, S2 without murmur, rub or gallop. ABDOMEN: Soft, nontender, nondistended, normoactive bowel sounds EXTREMITIES: Left metatarsal amputation with wound dressing wrapped: clean & intact; +1 pitting edema in left lower extremity (baseline) NEUROLOGICAL: Cranial nerves II through XII grossly intact. Normal speech, gait not observed. PSYCH: Normal mood, normal affect. SKIN: as above Laboratory Results - last 24 hr 10/21/16 10/21/16 10/21/16 11:13 17:17 21:17 WBC RBC Hgb Hct MCV MCHC RDW Plt Count MPV Neutrophils % Lymphocytes % Monocytes % Eosinophils % Basophils % Sodium Potassium Chloride Carbon Dioxide Anion Gap BUN Creatinine POC Glucometer 359 218 144 Random Glucose Calcium Phosphorus Magnesium 10/22/16 10/22/16 10/22/16 05:05 05:57 05:57 WBC 5.8 RBC 3.39 L Hgb 8.6 L Hct 26.6 L MCV 78.2 L MCHC 32.3 RDW 24.0 H Plt Count 375 MPV 7.4 L Neutrophils % 54.5 Lymphocytes % 25.4 Monocytes % 9.1 Eosinophils % 10.5 H Basophils % 0.5 Sodium 141 Potassium 5.5 H Chloride 108 H Carbon Dioxide 25 Anion Gap 8 BUN 47 H Creatinine 2.7 H POC Glucometer 169 Random Glucose 132 H Calcium 8.0 L Phosphorus 5.7 H Magnesium 1.8 Active Medications Generic Name Dose Route Start Last Admin Trade Name Freq PRN Reason Stop Dose Admin Acetaminophen 650 mg 10/17/16 22:15 10/22/16 08:11 Tylenol - PO 650 mg Q6H PRN Administration FEVER OR PAIN Albuterol/Ipratropium 1 amp 06/21/17 22:15 Duoneb - NEB Q6H PRN SHORTNESS OF BREATH Amlodipine Besylate 10 mg 10/18/16 10:00 10/21/16 09:14 Norvasc - PO 10 mg DAILY [facility] Administration Aspirin 81 mg 10/22/16 10:15 Ecotrin - PO DAILY [facility] Calcium Acetate 667 mg 10/21/16 12:00 10/22/16 08:11 Phoslo - PO 667 mg TIDCM IGGY Administration Docusate Sodium 100 mg 10/18/16 10:00 10/21/16 09:13 Colace - PO 100 mg DAILY [facility] Administration Doxazosin Mesylate 4 mg 10/18/16 10:00 10/21/16 09:13 Cardura - PO 4 mg DAILY [facility] Administration Duloxetine HCl 60 mg 10/21/16 22:25 Cymbalta - PO DAILY [facility] Ferrous Sulfate 325 mg 10/18/16 10:00 10/21/16 09:15 Feosol - PO 325 mg DAILY [facility] Administration Furosemide 80 mg 10/22/16 10:00 Lasix - PO DAILY [facility] Insulin Aspart 1 vial 10/20/16 16:30 10/22/16 06:06 Novolog Vial Sliding Scale - SQ 2 units TIDAC [facility] Administration Protocol Insulin Detemir 20 units 10/18/16 22:00 10/21/16 21:18 Levemir Vial SQ Not Given HS [facility] Metoprolol Tartrate 50 mg 10/22/16 10:02 Lopressor - PO BID [facility] Mirtazapine 15 mg 10/20/16 22:00 10/21/16 21:13 Remeron - PO 15 mg HS [facility] Administration Oxycodone HCl 10 mg 10/20/16 10:49 10/22/16 08:10 Roxicodone - PO 10 mg Q6H PRN Administration PAIN Pregabalin 100 mg 10/18/16 22:00 10/21/16 21:13 Lyrica - PO 100 mg BID [facility] Administration Sodium Bicarbonate 650 mg 10/18/16 10:00 10/21/16 21:14 Sodium Bicarbonate - PO 650 mg BID I[facility] Administration ASSESSMENT/PLAN: Patient is a 61 year old male with a significant PMHx of DM II with nephropathy and neuropathy, Osteomyelitis s/p left metatarsal amputation, PVD, HTN and CKD, COPD, Anxiety/Depression who presented from [place] for abnormal labs from the [facility]. Patient was found to have a potassium level of 6.7. Patient admitted for further management. #Acute on Chronic Renal Failure w/ acute hyperkalemia -Potassium today 5.5, repeat Kayexelate ordered -on Lasix 80mg PO daily -continue Sodium Bicarbonate 650mg PO BID -continuous cardiac monitoring on telemetry -low potassium diet -avoid nephrotoxic meds -nephrology consulted & following #PAD with chronic left foot osteomyelitis -being followed by wound care -wound vac placed -oxycodone pain management -PT/OT eval for boot placement #Hypertension -increased Metoprolol to 50mg PO BID -started aspirin 81mg PO daily -continue [id number] PO daily #DM -Levemir 20u HS -Insulin sliding scale for coverage -Lyrica 100mg PO BID -continue BGM #Anemia of chronic disease -continue Feosol & trend CBC #Depression -continue home meds: Remeron 15mg, Cymbalta 60mg, Cardura 4mg Prophylaxis/FEN -SCD's -no PPI indicated -No IVF neeed -monitor electrolytes -low potassium diet, Phoslo, Colace Dispo: awaiting PT/OT eval & social insurance specialist to help with obtaining a bot for patient; can be discharged to rehab after boot assessment & potassium improves Visit type - Emergency Visit Emergency Visit: Yes ED Registration Date: 10/17/16 Care time: The patient presented to the Emergency Department on the above date and was hospitalized for further evaluation of their emergent condition. - New Patient This patient is new to me today: Yes Date on this admission: 10/22/16 - Critical Care Critical Care patient: No
[2016-10-22] MEDS ORDERED: PT OWN MED DRAWER 7, Y5N ONE ×3 (10:13→20:08)
[2016-10-22] MEDS: DOXAZOSIN MESYLATE 4 MG TABLET PO SCH (10:15)
[2016-10-22] MEDS: DOCUSATE SODIUM 100 MG CAPSULE (FP) PO SCH (10:15)
[2016-10-22] MEDS: DULoxetine HCL 30 MG CAPSULE.DR (FP) PO SCH (10:15)
[2016-10-22] MEDS: PREGABALIN 50 MG CAPSULE PO SCH ×2 (10:16→21:26)
[2016-10-22] MEDS: FUROSEMIDE 40 MG TABLET (FP) PO SCH (10:16)
[2016-10-22] MEDS: FERROUS SO4 325 MG TABLET (FP) PO SCH (10:16)
[2016-10-22] MEDS: ASPIRIN COATED 81 MG TABLET.EC PO SCH (10:16)
[2016-10-22] MEDS: amLODIPine BESYLATE 10 MG TABLET (FP) PO SCH (10:16)
[2016-10-22] MEDS: SODIUM BICARBONATE 650 MG TABLET PO SCH ×2 (10:16→21:28)
--- NOTE | 2016-10-22 11:16 | PN ---
Teaching Attending Note Name of Resident: Porter Guajardo ATTENDING PHYSICIAN STATEMENT I saw and evaluated the patient. I reviewed the resident's note and discussed the case with the resident. I agree with the resident's findings and plan as documented. SUBJECTIVE:reports mild headache. No acute events overnight OBJECTIVE: Vital Signs Temperature 98.4 F 10/22/16 06:00 Pulse Rate 66 10/22/16 10:35 Respiratory Rate 20 10/22/16 06:00 Blood Pressure 156/90 10/22/16 06:00 O2 Sat by Pulse Oximetry (%) 98 10/22/16 10:35 Neck: Yes: Supple Cardiovascular: Yes: Regular Rate and Rhythm, S1, S2 Respiratory: Yes: CTA Bilaterally Gastrointestinal: Yes: Normal Bowel Sounds, Soft. No: Tenderness Extremities: Yes: Amputation Edema: No Wound/Incision: Yes: Dressing Dry and Intact Additional Findings/Remarks: CBC, BMP 10/22/16 05:57 10/22/16 05:57 ASSESSMENT AND PLAN: ASSESSMENT/PLAN: This is a 61 year old man with a history of type 2 DM with nephropathy and neuropathy, osteomyelitis of left foot, PVD, HTN, stage 4 CKD, COPD, anxiety, depression who presented to the ER from [place] for abnormal labs. 1. Persistent hyperkalemia -Reapeat Kayaxalate - increase Lasix 2. Stage 4 CKD -diabetic nephropathy 3. Anemia secondary to CKD and chronic illness - Hemoglobin is stable - Continue ferrous sulfate, Epogen 4. HTN- uncontrolled - will increase metoprolol to 50 BID 5. Type 2 DM with diabetic peripheral neuropathy and nephropathy - Continue Levemir, Novolog sliding scale with meals - Continue Lyrica for neuropathy 6. COPD - Stable - Continue DuoNeb as needed 7. Depression/anxiety -Continue Remeron, Cymbalta 8. PAD with chronic osteomyelitis of left foot - Continue wound VAC - oxycodone forpain control - needs PT OT eval / off loading boot for ambulation Discharge after K is corrected
[2016-10-22] MEDS ORDERED: SODIUM POLYSTYRENE SULFONATE 15 GM/60 ML BOTTLE PO ONE (11:20)
[2016-10-22] MEDS: METOPROLOL TARTRATE 25 MG TABLET (FP) PO SCH (12:25)
[2016-10-22] MEDS ORDERED: ALBUTEROL SO4 0.083% IH SOL 2.5 MG/3 ML VIAL.NEB. NEB ONE (14:05)
[2016-10-22] MEDS ORDERED: ALBUTEROL SO4 2.5/IPRATROPIUM 0.5 INH SOL 3 ML VIAL.NEB. NEB PRN (14:05)
[2016-10-22] MEDS ORDERED: ACETAMINOPHEN 325 MG TABLET (FP) PO PRN (14:05)
[2016-10-22] MEDS ORDERED: INSULIN (NOVOLOG) ASPART 100 UNITS/ML 10ML VIAL ONE ×2 (17:34→20:10)
[2016-10-22] MEDS: METOPROLOL TARTRATE 50 MG TABLET (FP) PO SCH (21:26)
[2016-10-22] MEDS: MIRTAZAPINE 15 MG TABLET (FP) PO SCH (21:27)
--- NOTE | 2016-10-22 21:58 | PN ---
Progress Note, Physician History of Present Illness: DFU secondary to osteomyelitis with profound abscess. S/P osseous debridement with antibiotic infused (vancomycin and gentamicin) bidegradable beads inserted in July. Osteomyelitis of the entire foot and distal leg bones. - Current Medication List Current Medications: Active Medications Acetaminophen (Tylenol -) 650 mg PO Q6H PRN PRN Reason: FEVER OR PAIN Albuterol/Ipratropium (Duoneb -) 1 amp NEB Q6H PRN PRN Reason: SHORTNESS OF BREATH Amlodipine Besylate (Norvasc -) 10 mg PO DAILY [facility] Aspirin (Ecotrin -) 81 mg PO DAILY [facility] Last Admin: 10/22/16 10:16 Dose: 81 mg Calcium Acetate (Phoslo -) 667 mg PO TIDCM [facility] Last Admin: 10/22/16 17:39 Dose: 667 mg Docusate Sodium (Colace -) 100 mg PO DAILY [facility] Doxazosin Mesylate (Cardura -) 4 mg PO DAILY [facility] Duloxetine HCl (Cymbalta -) 60 mg PO DAILY [facility] Last Admin: 10/22/16 10:15 Dose: 60 mg Ferrous Sulfate (Feosol -) 325 mg PO DAILY [facility] Furosemide (Lasix -) 80 mg PO DAILY [facility] Last Admin: 10/22/16 10:16 Dose: 80 mg Insulin Aspart (Novolog Vial Sliding Scale -) 1 vial SQ TIDAC [facility] PRN Reason: Protocol Last Admin: 10/22/16 17:42 Dose: 6 units Insulin Detemir (Levemir Vial) [address] [facility] Last Admin: 10/22/16 21:24 Dose: Not Given Metoprolol Tartrate (Lopressor -) 50 mg PO BID [facility] Last Admin: 10/22/16 21:26 Dose: 50 mg Mirtazapine (Remeron -) 15 mg PO HS [facility] Last Admin: 10/22/16 21:27 Dose: 15 mg Oxycodone HCl (Roxicodone -) 10 mg PO Q6H PRN PRN Reason: PAIN Last Admin: 10/22/16 21:28 Dose: 10 mg Pregabalin (Lyrica -) 100 mg PO BID [facility] Last Admin: 10/22/16 21:26 Dose: 100 mg Sodium Bicarbonate (Sodium Bicarbonate -) 650 mg PO BID [facility] Last Admin: 10/22/16 21:28 Dose: 650 mg - Objective Vital Signs: Vital Signs Temperature 37.0 C 10/22/16 20:37 Pulse Rate 67 10/22/16 20:37 Respiratory Rate 18 10/22/16 20:40 Blood Pressure 151/88 10/22/16 20:37 O2 Sat by Pulse Oximetry (%) 93 L 10/22/16 20:40 Cardiovascular: Yes: WNL Respiratory: Yes: WNL Extremities: Yes: Amputation, Deformity Edema: LLE: 3+ (marked), RLE: 2+ Wound/Incision: Yes: Dressing Dry and Intact, Dressing Removed, Reddened, Bleeding, Unapproximated (well granulated) Neurological: Yes: Loss of Sensation, Numbness ...Motor Strength: WNL Psychiatric: Yes: WNL, Alert, Oriented Additional Findings/Remarks: This is a follow up visit for a severe diabetic foot ulcer secondary to incision and drainage of the left qfoot for a recurrence of osteomyelitis of the residual metatarsals lesser tarsus and greater tarsal bones of the left foot. Patient had an MRI over the weekend that I ordered which seems to suggest either a persistence of the osteomyelitis process or a Charcot 's arthropathy or a combination of both. Extensively, Discussed the case with Dr. Mitchell the radiologist read the MRI. When questioned if he thinks there is a improvement in the hyperemia indicative of the possible infectious process , He believes , however, this may be due to improved technique by the technologists of this MRI vs the previous MRI rather than a definitive improvement of the pathology.. And of special note is the derangement of the articulation of the talus upon the tibial articulating surface. This is noted on the sagittal projection in so far that the talus is inferiorly deranged upon the surface of the tibia. This seems to be consistent with Charcot 's arthropathy so in addition to the infectious process diabetic osteoarthropathy is occurring. Patient does not, subjectively, that the "foot and ankle is slipping" Patients offloading boot (the gravity boot ) has busted. Spoke with Waqas Ramirez of [facility] and will write a prescription for recasting for the gravity kearney to offload the left lower limb. Patient must be off weight bearing until an effective offloading device not only for the diabetic foot ulcer or but also for this Charcot 's arthropathy. Patient told him no uncertain terms that he cannot bear weight. The patient understands that the survival of the left lower limb is in jeopardy. The ulceration however, appears very well granulated with most minimal slough. This examiner attributes that to the KCI wound VAC as opposed to the generic negative wound pressure therapy Device provided by the half-way facility where he is now residing at the present time. Social work should assess the possibility of getting the KCI device to be brought to the half-way facility as it is providing better negative wound pressure therapy. Again, it does not seem that an immediate debridement is necessary. May need further osseous biopsies to assess/rule out The infectious process versus diabetic osteoarthropathy. Reapply the KCI wound VAC at 125 mmHg. Total time spent on this case including time on the morgan, discussion with the nursing service, discussion with the radiologist, and the patient himself for the long-term prospects exceeded 45 minutes for this encounter. Labs: CBC, BMP 10/22/16 05:57 10/22/16 05:57 INR, PTT INR 1.21 (0.82-1.09) H 10/17/16 20:05 - ....Imaging MRI: Report Reviewed, Image Reviewed
[2016-10-22] MEDS ORDERED: INSULIN DETEMIR 100 UNITS/ML MDV SQ SCH (22:00)
--- NOTE | 2016-10-22 22:47 | PN ---
Progress Note, Physician Chief Complaint: Patient seen in his room. Offers no new complaints. Denies eating any food from outside the hospital. Serum K elevated. Received Kayexelate. Maintains good urine output. - Current Medication List Current Medications: Active Medications Acetaminophen (Tylenol -) 650 mg PO Q6H PRN PRN Reason: FEVER OR PAIN Albuterol/Ipratropium (Duoneb -) 1 amp NEB Q6H PRN PRN Reason: SHORTNESS OF BREATH Amlodipine Besylate (Norvasc -) 10 mg PO DAILY [facility] Aspirin (Ecotrin -) 81 mg PO DAILY [facility] Last Admin: 10/22/16 10:16 Dose: 81 mg Calcium Acetate (Phoslo -) 667 mg PO TIDCM [facility] Last Admin: 10/22/16 17:39 Dose: 667 mg Docusate Sodium (Colace -) 100 mg PO DAILY [facility] Doxazosin Mesylate (Cardura -) 4 mg PO DAILY [facility] Duloxetine HCl (Cymbalta -) 60 mg PO DAILY [facility] Last Admin: 10/22/16 10:15 Dose: 60 mg Ferrous Sulfate (Feosol -) 325 mg PO DAILY [facility] Furosemide (Lasix -) 80 mg PO DAILY [facility] Last Admin: 10/22/16 10:16 Dose: 80 mg Insulin Aspart (Novolog Vial Sliding Scale -) 1 vial SQ TIDAC [facility] PRN Reason: Protocol Last Admin: 10/22/16 17:42 Dose: 6 units Insulin Detemir (Levemir Vial) 20 units SQ HS [facility] Last Admin: 10/22/16 21:24 Dose: Not Given Metoprolol Tartrate (Lopressor -) 50 mg PO BID [facility] Last Admin: 10/22/16 21:26 Dose: 50 mg Mirtazapine (Remeron -) 15 mg PO HS [facility] Last Admin: 10/22/16 21:27 Dose: 15 mg Oxycodone HCl (Roxicodone -) 10 mg PO Q6H PRN PRN Reason: PAIN Last Admin: 10/22/16 21:28 Dose: 10 mg Pregabalin (Lyrica -) 100 mg PO BID [facility] Last Admin: 10/22/16 21:26 Dose: 100 mg Sodium Bicarbonate (Sodium Bicarbonate -) 650 mg PO BID [facility] Last Admin: 10/22/16 21:28 Dose: 650 mg - Objective Vital Signs: Vital Signs Temperature 98.6 F 10/22/16 20:37 Pulse Rate 67 10/22/16 20:37 Respiratory Rate 18 10/22/16 20:40 Blood Pressure 151/88 10/22/16 20:37 O2 Sat by Pulse Oximetry (%) 93 L 10/22/16 20:40 Constitutional: Yes: Well Nourished, No Distress Eyes: Yes: Conjunctiva Clear HENT: Yes: Normocephalic Neck: Yes: Trachea Midline Cardiovascular: Yes: S1, S2. No: Murmur Respiratory: Yes: CTA Bilaterally, Diminished Gastrointestinal: Yes: Normal Bowel Sounds, Soft Genitourinary: No: CVA Tenderness - Left, CVA Tenderness - Right, Hematuria, Incontinence Extremities: Yes: Amputation Neurological: Yes: Alert, Oriented Labs: CBC, BMP 10/22/16 05:57 10/22/16 05:57 INR, PTT INR 1.21 (0.82-1.09) H 10/17/16 20:05 Problem List - Problems (1) Type 2 diabetes mellitus with foot ulcer Code(s): E11.621 - TYPE 2 DIABETES MELLITUS WITH FOOT ULCER L97.509 - NON-PRESSURE CHRONIC ULCER OTH PRT UNSP FOOT W UNSP SEVERITY (2) FROYLAN (acute kidney injury) Code(s): N17.9 - ACUTE KIDNEY FAILURE, UNSPECIFIED (3) Acute hyperkalemia Code(s): E87.5 - HYPERKALEMIA (4) Hyperglycemia Code(s): R73.9 - HYPERGLYCEMIA, UNSPECIFIED (5) Hyperkalemia Code(s): E87.5 - HYPERKALEMIA (6) 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 Code(s): E11.9 - TYPE 2 DIABETES MELLITUS WITHOUT COMPLICATIONS Qualifiers: 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 type: type 2 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 complication status: without complication 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 penitentiary insulin use: without penitentiary use Qualified Code(s): E11.9 - Type 2 diabetes mellitus without complications (7) Diabetic neuropathy Code(s): E11.40 - TYPE 2 DIABETES MELLITUS WITH DIABETIC NEUROPATHY, UNSP Qualifiers: 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 type: type 2 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 complication detail: diabetic polyneuropathy Qualified Code(s): E11.42 - Type 2 diabetes mellitus with diabetic polyneuropathy (8) HTN (hypertension) Code(s): I10 - ESSENTIAL (PRIMARY) HYPERTENSION Qualifiers: Hypertension type: essential hypertension Qualified Code(s): I10 - Essential (primary) hypertension (9) S/P amputation Code(s): Z89.9 - ACQUIRED ABSENCE OF LIMB, UNSPECIFIED (10) Severe anemia Code(s): D64.9 - ANEMIA, UNSPECIFIED Assessment/Plan 61 y/o male with advanced Chronic Kidney disease. Has underlying Diabetic Microvascular Renal disease. Hyperkalemia, due to defective tubular potassium excretion and secretion, due to the Renal Tubular Acidosis ( Type IV) Suggest: 2 Gm K diet. Kayexelate PRN. Does not require RN HOME HEALTH at this point. But, will follow him as outpatient to monitor the Renal function. Anemia quite profound. Possibly entirely related to the Renal disease. May benefit from Procrit Thanks again.. Will follow. Aniyah Chaudhry MD
[2016-10-23] MEDS: INSULIN SLIDING SCALE (NOVOLOG) 1 VIAL SQ SCH ×3 (06:17→18:21)
[2016-10-23 07:33] LABS: MCHC 31.9 g/dl (32.0-35.9); MEAN CELL VOLUME 78.2 fl (80-96); MEAN PLT VOLUME 8.2 fl (7.5-11.1); PLATELET COUNT 324 K/MM3 (134-434); RDW 25.2 % (11.9-15.9); WHITE BLOOD COUNT 5.9 K/mm3 (4.0-10.0)
[2016-10-23 07:45] LABS: ALBUMIN 2.5 g/dl (3.4-5.0); ANION GAP 6 (8-16); BILIRUBIN,TOTAL 0.8 mg/dL (0.2-1.0); CALCIUM 8.1 mg/dL (8.5-10.1); CO2 28 mmol/L (21-32); CREATININE 2.7 mg/dL (0.7-1.3); SGOT/AST 14 U/L (15-37); SGPT/ALT 24 U/L (12-78); TOT PROT 6.7 g/dl (6.4-8.2)
[2016-10-23 07:47] LABS: ALK PHOS 135 U/L (45-117)
[2016-10-23] MEDS: CALCIUM ACETATE 667 MG CAPSULE (FP) PO SCH ×3 (08:00→18:21)
[2016-10-23 08:42] LABS: GLUCOSE,RANDOM 46 mg/dL (74-106)
[2016-10-23] MEDS: METOPROLOL TARTRATE 50 MG TABLET (FP) PO SCH ×2 (10:59→22:40)
[2016-10-23] MEDS: PREGABALIN 50 MG CAPSULE PO SCH ×2 (10:59→22:40)
[2016-10-23] MEDS: SODIUM BICARBONATE 650 MG TABLET PO SCH ×2 (11:00→22:41)
[2016-10-23] MEDS: ASPIRIN COATED 81 MG TABLET.EC PO SCH (11:00)
[2016-10-23] MEDS: FERROUS SO4 325 MG TABLET (FP) PO SCH (11:00)
[2016-10-23] MEDS: amLODIPine BESYLATE 10 MG TABLET (FP) PO SCH (11:00)
[2016-10-23] MEDS: FUROSEMIDE 40 MG TABLET (FP) PO SCH (11:00)
[2016-10-23] MEDS: DOCUSATE SODIUM 100 MG CAPSULE (FP) PO SCH (11:00)
[2016-10-23] MEDS: DULoxetine HCL 30 MG CAPSULE.DR (FP) PO SCH (11:00)
[2016-10-23] MEDS: DOXAZOSIN MESYLATE 4 MG TABLET PO SCH (11:01)
[2016-10-23] MEDS: oxyCODONE HCL 5 MG TABLET PO PRN ×2 (11:27→20:18)
--- NOTE | 2016-10-23 11:50 | PN ---
Progress Note, Physician Chief Complaint: Not in distress History of Present Illness: Patient was seen and examined. Awake and alert. Chart was reviewed Denies chest pain, SOB or palpitations - Current Medication List Current Medications: Active Medications Acetaminophen (Tylenol -) 650 mg PO Q6H PRN PRN Reason: FEVER OR PAIN Albuterol/Ipratropium (Duoneb -) 1 amp NEB Q6H PRN PRN Reason: SHORTNESS OF BREATH Amlodipine Besylate (Norvasc -) 10 mg PO DAILY [facility] Last Admin: 10/23/16 11:00 Dose: 10 mg Aspirin (Ecotrin -) 81 mg PO DAILY [facility] Last Admin: 10/23/16 11:00 Dose: 81 mg Calcium Acetate (Phoslo -) 667 mg PO TIDCM [facility] Last Admin: 10/23/16 11:01 Dose: 667 mg Docusate Sodium (Colace -) 100 mg PO DAILY [facility] Last Admin: 10/23/16 11:00 Dose: 100 mg Doxazosin Mesylate (Cardura -) 4 mg PO DAILY [facility] Last Admin: 10/23/16 11:01 Dose: 4 mg Duloxetine HCl (Cymbalta -) 60 mg PO DAILY [facility] Last Admin: 10/23/16 11:00 Dose: 60 mg Ferrous Sulfate (Feosol -) 325 mg PO DAILY [facility] Last Admin: 10/23/16 11:00 Dose: 325 mg Furosemide (Lasix -) 80 mg PO DAILY [facility] Last Admin: 10/23/16 11:00 Dose: 80 mg Insulin Aspart (Novolog Vial Sliding Scale -) 1 vial SQ TIDAC [facility] PRN Reason: Protocol Last Admin: 10/23/16 06:17 Dose: Not Given Insulin Detemir (Levemir Vial) 20 units SQ [facility] Last Admin: 10/22/16 21:24 Dose: Not Given Metoprolol Tartrate (Lopressor -) 50 mg PO BID [facility] Last Admin: 10/23/16 10:59 Dose: 50 mg Mirtazapine (Remeron -) 15 mg PO HS [facility] Last Admin: 10/22/16 21:27 Dose: 15 mg Oxycodone HCl (Roxicodone -) 10 mg PO Q6H PRN PRN Reason: PAIN Last Admin: 10/23/16 11:27 Dose: 10 mg Pregabalin (Lyrica -) 100 mg PO BID [facility] Last Admin: 10/23/16 10:59 Dose: 100 mg Sodium Bicarbonate (Sodium Bicarbonate -) 650 mg PO BID [facility] Last Admin: 10/23/16 11:00 Dose: 650 mg - Objective Vital Signs: Vital Signs Temperature 98.6 F 10/23/16 05:04 Pulse Rate 66 10/23/16 05:04 Respiratory Rate 18 10/23/16 05:04 Blood Pressure 147/93 10/23/16 05:04 O2 Sat by Pulse Oximetry (%) 93 L 10/22/16 20:40 Neck: Yes: Supple Cardiovascular: Yes: Regular Rate and Rhythm, S1, S2 Respiratory: Yes: CTA Bilaterally Gastrointestinal: Yes: Normal Bowel Sounds, Soft. No: Tenderness Extremities: Yes: Amputation Edema: No Wound/Incision: Yes: Dressing Dry and Intact Labs: CBC, BMP 10/23/16 06:00 10/23/16 06:00 Problem List - Problems (1) Type 2 diabetes mellitus with foot ulcer Code(s): E11.621 - TYPE 2 DIABETES MELLITUS WITH FOOT ULCER L97.509 - NON-PRESSURE CHRONIC ULCER OTH PRT UNSP FOOT W UNSP SEVERITY (2) FROYLAN (acute kidney injury) Code(s): N17.9 - ACUTE KIDNEY FAILURE, UNSPECIFIED (3) Hyperkalemia Code(s): E87.5 - HYPERKALEMIA (4) Hypoglycemia Code(s): E16.2 - HYPOGLYCEMIA, UNSPECIFIED (5) 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 Code(s): E11.9 - TYPE 2 DIABETES MELLITUS WITHOUT COMPLICATIONS Qualifiers: 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 type: type 2 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 complication status: without complication 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 penitentiary insulin use: without terminal operator use Qualified Code(s): E11.9 - Type 2 diabetes mellitus without complications (6) Diabetic neuropathy Code(s): E11.40 - TYPE 2 DIABETES MELLITUS WITH DIABETIC NEUROPATHY, UNSP Qualifiers: 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 type: type 2 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 complication detail: diabetic polyneuropathy Qualified Code(s): E11.42 - Type 2 diabetes mellitus with diabetic polyneuropathy (7) HTN (hypertension) Code(s): I10 - ESSENTIAL (PRIMARY) HYPERTENSION Qualifiers: Hypertension type: essential hypertension Qualified Code(s): I10 - Essential (primary) hypertension (8) Osteomyelitis Code(s): M86.9 - OSTEOMYELITIS, UNSPECIFIED Qualifiers: Osteomyelitis type: other chronic Osteomyelitis location: foot (9) S/P amputation Code(s): Z89.9 - ACQUIRED ABSENCE OF LIMB, UNSPECIFIED Assessment/Plan 1. Hyperkalemia now normal with underlying renal dysfunction 2. Hypertension 3. Type 2 diabetes mellitus 4. PVD 5. History of osteomyelitis and left TMA (amputation) PLAN: 1. Monitor electrolytes and renal function. 2. Continue Metoprolol and Amlodipine 3. ASA 4. Currently on diuretics 5. Wound care Further plans are to follow [place] [facility] MD
--- NOTE | 2016-10-23 13:40 | PN ---
Progress Note, Physician Chief Complaint: Patient seen in his room. Offers no new complaints. Feeling better. Maintains good urine output. - Current Medication List Current Medications: Active Medications Acetaminophen (Tylenol -) 650 mg PO Q6H PRN PRN Reason: FEVER OR PAIN Albuterol/Ipratropium (Duoneb -) 1 amp NEB Q6H PRN PRN Reason: SHORTNESS OF BREATH Amlodipine Besylate (Norvasc -) 10 mg PO DAILY [facility] Last Admin: 10/23/16 11:00 Dose: 10 mg Aspirin (Ecotrin -) 81 mg PO DAILY [facility] Last Admin: 10/23/16 11:00 Dose: 81 mg Calcium Acetate (Phoslo -) 667 mg PO TIDCM [facility] Last Admin: 10/23/16 11:01 Dose: 667 mg Docusate Sodium (Colace -) 100 mg PO DAILY [facility] Last Admin: 10/23/16 11:00 Dose: 100 mg Doxazosin Mesylate (Cardura -) 4 mg PO DAILY [facility] Last Admin: 10/23/16 11:01 Dose: 4 mg Duloxetine HCl (Cymbalta -) 60 mg PO DAILY [facility] Last Admin: 10/23/16 11:00 Dose: 60 mg Ferrous Sulfate (Feosol -) 325 mg PO DAILY [facility] Last Admin: 10/23/16 11:00 Dose: 325 mg Furosemide (Lasix -) 80 mg PO DAILY [facility] Last Admin: 10/23/16 11:00 Dose: 80 mg Insulin Aspart (Novolog Vial Sliding Scale -) 1 vial SQ TIDAC [facility] PRN Reason: Protocol Last Admin: 10/23/16 06:17 Dose: Not Given Insulin Detemir (Levemir Vial) 20 units SQ [facility] Last Admin: 10/22/16 21:24 Dose: Not Given Metoprolol Tartrate (Lopressor -) 50 mg PO BID [facility] Last Admin: 10/23/16 10:59 Dose: 50 mg Mirtazapine (Remeron -) 15 mg PO [facility] Last Admin: 10/22/16 21:27 Dose: 15 mg Oxycodone HCl (Roxicodone -) 10 mg PO Q6H PRN PRN Reason: PAIN Last Admin: 10/23/16 11:27 Dose: 10 mg Pregabalin (Lyrica -) 100 mg PO BID [facility] Last Admin: 10/23/16 10:59 Dose: 100 mg Sodium Bicarbonate (Sodium Bicarbonate -) 650 mg PO BID [facility] Last Admin: 10/23/16 11:00 Dose: 650 mg - Objective Vital Signs: Vital Signs Temperature 98.6 F 10/23/16 05:04 Pulse Rate 66 10/23/16 05:04 Respiratory Rate 18 10/23/16 05:04 Blood Pressure 147/93 10/23/16 05:04 O2 Sat by Pulse Oximetry (%) 93 L 10/22/16 20:40 Constitutional: Yes: Calm, Anxious Eyes: Yes: Conjunctiva Clear Neck: Yes: Trachea Midline Cardiovascular: Yes: S1, S2 Respiratory: Yes: CTA Bilaterally, Diminished Gastrointestinal: Yes: Normal Bowel Sounds, Soft Musculoskeletal: No: Joint Stiffness, Muscle Pain Labs: CBC, BMP 10/23/16 06:00 10/23/16 06:00 INR, PTT INR 1.21 (0.82-1.09) H 10/17/16 20:05 Problem List - Problems (1) Type 2 diabetes mellitus with foot ulcer Code(s): E11.621 - TYPE 2 DIABETES MELLITUS WITH FOOT ULCER L97.509 - NON-PRESSURE CHRONIC ULCER OTH PRT UNSP FOOT W UNSP SEVERITY (2) FROYLAN (acute kidney injury) Code(s): N17.9 - ACUTE KIDNEY FAILURE, UNSPECIFIED (3) Acute hyperkalemia Code(s): E87.5 - HYPERKALEMIA (4) Hyperglycemia Code(s): R73.9 - HYPERGLYCEMIA, UNSPECIFIED (5) Hyperkalemia Code(s): E87.5 - HYPERKALEMIA (6) 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 Code(s): E11.9 - TYPE 2 DIABETES MELLITUS WITHOUT COMPLICATIONS Qualifiers: 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 type: type 2 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 complication status: without complication 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 nursing home insulin use: without nursing home use Qualified Code(s): E11.9 - Type 2 diabetes mellitus without complications (7) Diabetic neuropathy Code(s): E11.40 - TYPE 2 DIABETES MELLITUS WITH DIABETIC NEUROPATHY, UNSP Qualifiers: 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 type: type 2 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 complication detail: diabetic polyneuropathy Qualified Code(s): E11.42 - Type 2 diabetes mellitus with diabetic polyneuropathy (8) HTN (hypertension) Code(s): I10 - ESSENTIAL (PRIMARY) HYPERTENSION Qualifiers: Hypertension type: essential hypertension Qualified Code(s): I10 - Essential (primary) hypertension (9) S/P amputation Code(s): Z89.9 - ACQUIRED ABSENCE OF LIMB, UNSPECIFIED (10) Severe anemia Code(s): D64.9 - ANEMIA, UNSPECIFIED Assessment/Plan 61 y/o male with advanced Chronic Kidney disease. Has underlying Diabetic Microvascular Renal disease. Hyperkalemia, Resolved. Serum K in acceptable range. Suggest: 2 Gm K diet. Anemia quite profound. Possibly entirely related to the Renal disease. May benefit from Procrit The patient will require out patient f/u when discharged. Thanks again.. Will follow. Aniyah Chaudhry MD
[2016-10-23] MEDS ORDERED: IRON SUCROSE INJECTION 100 MG in SODIUM CHLORIDE 95 ML IVPB ONE ×2 (16:44→19:30)
--- NOTE | 2016-10-23 17:06 | PN ---
Teaching Attending Note Name of Resident: Marlena Bello ATTENDING PHYSICIAN STATEMENT I saw and evaluated the patient. I reviewed the resident's note and discussed the case with the resident. I agree with the resident's findings and plan as documented. SUBJECTIVE:asymptomatic. denies CP, SOB,fever, chills, N/V/C/D OBJECTIVE: Last Vital Signs Temp Pulse Resp BP Pulse Ox 97.8 F 123 H 20 135/72 93 L 10/23/16 14:21 10/23/16 14:21 10/23/16 14:21 10/23/16 14:21 10/22/16 20:40 General NAD CV S1 S2 RRR no murmur/rub/gallop Lungs CTA B/L no wheezing/rales/rhonchi ASSESSMENT AND PLAN: 61yo M with PMH OM, DM, PVD, HTN, CKD stage IV, COPD sent to the ER for hyperkalemia 1. Persistent hyperkalemia- today has normalized. cont kayexylate prn K >5. lasix increased to 80mg to promote potassium excretion. will need to monitor potassium closely 2. HTN-improved. metoprolol increased yesterday. cont at this time 3. Hypogylcemia- Random sugar 46 this AM. was asymptomatic. pt states he carb counts at home and doses his insulin based on his night reading. A1c 5.9. encouraged pt to continue this as he has managed well at home. educated pt to go on the lower scale to prevent hypoglycemia at home since he is asymptomatic. states he gets readings at night 89-156. and doses insulin 10-18 units at bedtime. told him to make 10 units the max he injects at home to prevent hypogylcemia. educated on risks assoc with hypoglycemia. 4. Acute on CKD- baseline Cr 2.9. now better than baseline. cont management per nephrology. 5. L foot OM- s/p wound vac in place. spoke with podiatry. obtained MRI while in house. possible bone bx tonight by podiatry. in agreement that podiatry will follow up results as outpatient 6. d/c planning to [facility].
[2016-10-23] MEDS ORDERED: LIDO 2%/EPI 1:200000 PRESRVFRE (20 ML SDVIAL) PNB ONE (18:15)
[2016-10-23] MEDS ORDERED: INSULIN DETEMIR 100 UNITS/ML MDV SQ SCH (19:26)
--- NOTE | 2016-10-23 19:50 | PN ---
Physical Exam: SUBJECTIVE: Patient seen and examined by me at bedside. No overnight events noted. Patient offers no complaints. Otherwise, denies fever, chills, nausea, vomiting, abdominal pain, chest pain, palpitations, shortness of breath, headaches. OBJECTIVE: Vital Signs Period Temp Pulse Resp BP Sys/Gutierrez Pulse Ox Last 24 Hr 97.8 F-98.7 F 62-123 16-20 135-154/72-93 93 GENERAL: The patient is awake, alert, and fully oriented, in no acute distress. LUNGS: Breath sounds equal, clear to auscultation bilaterally, no wheezes, no crackles, no accessory muscle use. HEART: Regular rate and rhythm, S1, S2 without murmur, rub or gallop. ABDOMEN: Soft, nontender, nondistended, normoactive bowel sounds EXTREMITIES: Left metatarsal amputation with wound dressing wrapped c/d/i. +1 pitting edema in left lower extremity Laboratory Results - last 24 hr 10/22/16 10/23/16 10/23/16 21:22 06:00 06:00 WBC 5.9 RBC 3.21 L Hgb 8.0 L Hct 25.1 L MCV 78.2 L MCHC 31.9 L RDW 25.2 H Plt Count 324 MPV 8.2 D Sodium 143 Potassium 4.9 Chloride 109 H Carbon Dioxide 28 Anion Gap 6 L BUN 48 H Creatinine 2.7 H Creat Clearance w eGFR 24.14 POC Glucometer 131 Random Glucose 46 L* D Calcium 8.1 L Total Bilirubin 0.8 D AST 14 L D ALT 24 Alkaline Phosphatase 135 H Total Protein 6.7 Albumin 2.5 L 10/23/16 10/23/16 10/23/16 06:14 06:58 11:15 WBC RBC Hgb Hct MCV MCHC RDW Plt Count MPV Sodium Potassium Chloride Carbon Dioxide Anion Gap BUN Creatinine Creat Clearance w eGFR POC Glucometer 56 106 201 Random Glucose Calcium Total Bilirubin AST ALT Alkaline Phosphatase Total Protein Albumin 10/23/16 17:53 WBC RBC Hgb Hct MCV MCHC RDW Plt Count MPV Sodium Potassium Chloride Carbon Dioxide Anion Gap BUN Creatinine Creat Clearance w eGFR POC Glucometer 210 Random Glucose Calcium Total Bilirubin AST ALT Alkaline Phosphatase Total Protein Albumin Active Medications Generic Name Dose Route Start Last Admin Trade Name Freq PRN Reason Stop Dose Admin Acetaminophen 650 mg 10/22/16 14:05 Tylenol - PO Q6H PRN FEVER OR PAIN Albuterol/Ipratropium 1 amp 10/22/16 14:05 Duoneb - NEB Q6H PRN SHORTNESS OF BREATH Amlodipine Besylate 10 mg 10/23/16 10:00 10/23/16 11:00 Norvasc - PO 10 mg DAILY [facility] Administration Aspirin 81 mg 10/22/16 10:15 10/23/16 11:00 Ecotrin - PO 81 mg DAILY [facility] Administration Calcium Acetate 667 mg 10/21/16 12:00 10/23/16 18:21 Phoslo - PO 667 mg TIDCM [facility] Administration Docusate Sodium 100 mg 10/23/16 10:00 10/23/16 11:00 Colace - PO 100 mg DAILY [facility] Administration Doxazosin Mesylate 4 mg 10/23/16 10:00 10/23/16 11:01 Cardura - PO 4 mg DAILY [facility] Administration Duloxetine HCl 60 mg 10/21/16 22:25 10/23/16 11:00 Cymbalta - PO 60 mg DAILY [facility] Administration Ferrous Sulfate 325 mg 10/23/16 10:00 10/23/16 11:00 Feosol - PO 325 mg DAILY [facility] Administration Furosemide 80 mg 10/22/16 10:00 10/23/16 11:00 Lasix - PO 80 mg DAILY [facility] Administration Iron Sucrose 100 mg/ Sodium 100 mls @ 200 mls/hr 10/23/16 19:30 Chloride IVPB 10/23/16 19:59 ONCE ONE Insulin Aspart 1 vial 10/20/16 16:30 10/23/16 18:21 Novolog Vial Sliding Scale - SQ Not Given TIDAC [facility] Protocol Insulin Detemir 10 units 10/23/16 19:26 Levemir Vial SQ HS [facility] Metoprolol Tartrate 50 mg 10/22/16 10:02 10/23/16 10:59 Lopressor - PO 50 mg BID [facility] Administration Mirtazapine 15 mg 10/20/16 22:00 10/22/16 21:27 Remeron - PO 15 mg HS [facility] Administration Oxycodone HCl 10 mg 10/20/16 10:49 10/23/16 11:27 Roxicodone - PO 10 mg Q6H PRN Administration PAIN Pregabalin 100 mg 10/22/16 22:00 10/23/16 10:59 Lyrica - PO 100 mg BID [facility] Administration Sodium Bicarbonate 650 mg 10/22/16 22:00 10/23/16 11:00 Sodium Bicarbonate - PO 650 mg BID [facility] Administration ASSESSMENT/PLAN: Patient is a 61 year old male with a significant PMHx of DM II with nephropathy and neuropathy, Osteomyelitis s/p left metatarsal amputation, PVD, HTN and CKD, COPD, Anxiety/Depression who presented from [place] for abnormal labs from the [facility]. Patient was found to have a potassium level of 6.7. Patient admitted for further management. Chronic Renal Failure w/ Acute Hyperkalemia-Improving -likely due to decreased excretion in the setting of CKD -Continue Lasix 80mg po -Low potassium diet -Continue to monitor BMP PAD with Chronic Left Foot Osteomyelitis -Followed and monitored by Wound care -wound vac placed and followed by Podiatry -oxycodone pain management -PT/OT eval for boot placement Anemia of Chronic Disease- Chronic -Continue Ferrous Sulfate 325mg PO daily -Continue to trend CBC HTN-Controlled -Continue Metoprolol 50mg BID -Norsvac 10mg daily -Continue to monitor BP daily IDDM II with Peripheral Neuropathy -hypoglycemic today -Will lower Levemir to 10 units HS -Insulin sliding scale -BGM -Continue Lyrica 100mg PO BID COPD -In no acute exacerbation -Continue Duoneb Q6H PRN Depression -Continue Remeron 15mg daily -Continue Cymbalta 60mg PO daily -Continue Cardura 4mg daily F/E/N -On no fluids -Electrolytes wnl -Renal diet Prophylaxis -SCD's for DVT Disposition -Hyperkalemia improved. D/C in the morning Visit type - Emergency Visit Emergency Visit: Yes ED Registration Date: 10/17/16 Care time: The patient presented to the Emergency Department on the above date and was hospitalized for further evaluation of their emergent condition. - New Patient This patient is new to me today: No - Critical Care Critical Care patient: No
[2016-10-23] MEDS ORDERED: PT OWN MED DRAWER 7, Y5N ONE (20:13)
--- NOTE | 2016-10-23 22:04 | PN ---
Progress Note, Physician History of Present Illness: DFU secondary to osteomyelitis with profound abscess. S/P osseous debridement with antibiotic infused (vancomycin and gentamicin) bidegradable beads inserted in July. Osteomyelitis of the entire foot and distal leg bones. - Current Medication List Current Medications: Active Medications Acetaminophen (Tylenol -) 650 mg PO Q6H PRN PRN Reason: FEVER OR PAIN Albuterol/Ipratropium (Duoneb -) 1 amp NEB Q6H PRN PRN Reason: SHORTNESS OF BREATH Amlodipine Besylate (Norvasc -) 10 mg PO DAILY [facility] Last Admin: 10/23/16 11:00 Dose: 10 mg Aspirin (Ecotrin -) 81 mg PO DAILY [facility] Last Admin: 10/23/16 11:00 Dose: 81 mg Calcium Acetate (Phoslo -) 667 mg PO TIDCM [facility] Last Admin: 10/23/16 18:21 Dose: 667 mg Docusate Sodium (Colace -) 100 mg PO DAILY [facility] Last Admin: 10/23/16 11:00 Dose: 100 mg Doxazosin Mesylate (Cardura -) 4 mg PO DAILY [facility] Last Admin: 10/23/16 11:01 Dose: 4 mg Duloxetine HCl (Cymbalta -) 60 mg PO DAILY [facility] Last Admin: 10/23/16 11:00 Dose: 60 mg Ferrous Sulfate (Feosol -) 325 mg PO DAILY [facility] Last Admin: 10/23/16 11:00 Dose: 325 mg Furosemide (Lasix -) 80 mg PO DAILY [facility] Last Admin: 10/23/16 11:00 Dose: 80 mg Insulin Aspart (Novolog Vial Sliding Scale -) [facility] Reason: Protocol Last Admin: 10/23/16 18:21 Dose: Not Given Insulin Detemir (Levemir Vial) 10 units SQ [facility] Metoprolol Tartrate (Lopressor -) 50 mg PO BID [facility] Last Admin: 10/23/16 10:59 Dose: 50 mg Mirtazapine (Remeron -) 15 mg PO HS [facility] Last Admin: 10/22/16 21:27 Dose: 15 mg Oxycodone HCl (Roxicodone -) 10 mg PO Q6H PRN PRN Reason: PAIN Last Admin: 10/23/16 20:18 Dose: 10 mg Pregabalin (Lyrica -) 100 mg PO BID [facility] Last Admin: 10/23/16 10:59 Dose: 100 mg Sodium Bicarbonate (Sodium Bicarbonate -) 650 mg PO BID [facility] Last Admin: 10/23/16 11:00 Dose: 650 mg - Objective Vital Signs: Vital Signs Temperature 36.9 C 10/23/16 20:45 Pulse Rate 106 H 10/23/16 20:45 Respiratory Rate 20 10/23/16 20:45 Blood Pressure 153/95 10/23/16 20:45 O2 Sat by Pulse Oximetry (%) 93 L 10/22/16 20:40 Edema: LLE: 2+ Peripheral Pulses WNL: Yes Peripheral Pulses: Left Doralis Pedis: 1+ Integumentary: Yes: Incision Wound/Incision: Yes: Reddened, Unapproximated (Marked improvement of wound granulation with reslotion of cavernous, tunnel wound base most likely due to better NWPT with the [facility] wound VAC as opposed to generic SNF NWPT device) Additional Findings/Remarks: Bedside osseous biopsy performed at the medial aspect of the left foot. Please check possibility of patient being discharged with [facility] wound VAC as it is providing better NWPT than that of the SNF Labs: CBC, BMP 10/23/16 06:00 10/23/16 06:00 INR, PTT INR 1.21 (0.82-1.09) H 10/17/16 20:05
[2016-10-23] MEDS: MIRTAZAPINE 15 MG TABLET (FP) PO SCH (22:40)
[2016-10-24] MEDS: INSULIN SLIDING SCALE (NOVOLOG) 1 VIAL SQ SCH ×2 (06:08→17:59)
[2016-10-24 08:07] LABS: ALBUMIN 2.3 g/dl (3.4-5.0); ALK PHOS 174 U/L (45-117); ANION GAP 7 (8-16); BILIRUBIN,TOTAL 0.4 mg/dL (0.2-1.0); CALCIUM 7.8 mg/dL (8.5-10.1); CO2 25 mmol/L (21-32); CREATININE 2.8 mg/dL (0.7-1.3); GLUCOSE,RANDOM 183 mg/dL (74-106); SGOT/AST 17 U/L (15-37); SGPT/ALT 25 U/L (12-78); TOT PROT 6.5 g/dl (6.4-8.2)
--- NOTE | 2016-10-24 08:10 | OP ---
DATE OF OPERATION: 10/23/2016 PROCEDURE: A bone biopsy of 2 bones of the left foot. PREOPERATIVE DIAGNOSIS: Possible osteomyelitis. POSTOPERATIVE DIAGNOSIS: Possible osteomyelitis and pending. ANESTHESIA: Local infiltration with 5 mL of lidocaine 2%, 1:100,000. CLINICAL INDICATIONS OF THIS PROCEDURE: This patient, with a long history of diabetic foot ulcerations, amputations, abscesses, had a recent MRI which was suggestive of persistent osteomyelitis, but Charcot arthropathy could not be ruled out. This procedure is to determine if there is, indeed, a persistence of the osseous infection that was previously treated back in July of this year and if further antimicrobial chemotherapy needs to be performed. NARRATIVE: This procedure was performed bedside. After obtaining consent and prepping the patient in usual manner, attention was directed to the medial aspect of the left foot at the base of the remnants of the metatarsals from the transmetatarsal amputation. The medial aspect of the foot was the focus of the profound infection back in July. Using a number-15 blade, an incision was made at the base of the approximate 1st metatarsal. Dissection was carried down to bone, and with the use of a Jamshidi-type needle, samples of bone were sent to Microbiology. Likewise, closer to the focus of the previously incised and drained abscess, at the area of the superior calcaneus, a second incision was made, and dissection was carried down straight to bone. Likewise, using a Jamshidi needle, sample of bone from the rear foot was taken and sent to Pathology. The wounds were then flushed, and the skin was closed in usual manner at both incision sites. DR. NIURKA ARMSTRONG RT/[id number] MTDD
--- NOTE | 2016-10-24 10:55 | PN ---
Progress Note, Physician History of Present Illness: No complaints, afebrile. - Current Medication List Current Medications: Active Medications Acetaminophen (Tylenol -) 650 mg PO Q6H PRN PRN Reason: FEVER OR PAIN Albuterol/Ipratropium (Duoneb -) 1 amp NEB Q6H PRN PRN Reason: SHORTNESS OF BREATH Amlodipine Besylate (Norvasc -) 10 mg PO DAILY [facility] Last Admin: 10/23/16 11:00 Dose: 10 mg Aspirin (Ecotrin -) 81 mg PO DAILY [facility] Last Admin: 10/23/16 11:00 Dose: 81 mg Calcium Acetate (Phoslo -) 667 mg PO TIDCM [facility] Last Admin: 10/23/16 18:21 Dose: 667 mg Docusate Sodium (Colace -) 100 mg PO DAILY [facility] Last Admin: 10/23/16 11:00 Dose: 100 mg Doxazosin Mesylate (Cardura -) 4 mg PO DAILY [facility] Last Admin: 10/23/16 11:01 Dose: 4 mg Duloxetine HCl (Cymbalta -) 60 mg PO DAILY [facility] Last Admin: 10/23/16 11:00 Dose: 60 mg Ferrous Sulfate (Feosol -) 325 mg PO DAILY [facility] Last Admin: 10/23/16 11:00 Dose: 325 mg Furosemide (Lasix -) 80 mg PO DAILY [facility] Last Admin: 10/23/16 11:00 Dose: 80 mg Insulin Aspart (Novolog Vial Sliding Scale -) 1 vial SQ TIDAC [facility] PRN Reason: Protocol Last Admin: 10/24/16 06:08 Dose: 4 units Insulin Detemir (Levemir Vial) 10 units SQ [facility] Last Admin: 10/23/16 22:39 Dose: 10 units Metoprolol Tartrate (Lopressor -) 50 mg PO BID [facility] Last Admin: 10/23/16 22:40 Dose: 50 mg Mirtazapine (Remeron -) 15 mg PO HS [facility] Last Admin: 10/23/16 22:40 Dose: 15 mg Oxycodone HCl (Roxicodone -) 10 mg PO Q6H PRN PRN Reason: PAIN Last Admin: 10/23/16 20:18 Dose: 10 mg Pregabalin (Lyrica -) 100 mg PO BID [facility] Last Admin: 10/23/16 22:40 Dose: 100 mg Sodium Bicarbonate (Sodium Bicarbonate -) 650 mg PO BID [facility] Last Admin: 10/23/16 22:41 Dose: 650 mg - Objective Vital Signs: Vital Signs Temperature 98.7 F 10/24/16 05:16 Pulse Rate 70 10/24/16 05:16 Respiratory Rate 20 10/24/16 05:16 Blood Pressure 153/81 10/24/16 05:16 O2 Sat by Pulse Oximetry (%) 96 10/23/16 21:00 Constitutional: Yes: No Distress, Calm Neck: Yes: Supple Cardiovascular: Yes: Regular Rate and Rhythm Respiratory: Yes: Regular, CTA Bilaterally Gastrointestinal: Yes: Normal Bowel Sounds, Soft Edema: No Wound/Incision: Yes: Other (Wound vac in place left foot) Labs: CBC, BMP 10/23/16 06:00 10/24/16 06:00 INR, PTT INR 1.21 (0.82-1.09) H 10/17/16 20:05 Problem List - Problems (1) Type 2 diabetes mellitus with foot ulcer Code(s): E11.621 - TYPE 2 DIABETES MELLITUS WITH FOOT ULCER L97.509 - NON-PRESSURE CHRONIC ULCER OTH PRT UNSP FOOT W UNSP SEVERITY (2) Hyperkalemia Code(s): E87.5 - HYPERKALEMIA (3) Chronic renal insufficiency, stage III (moderate) Code(s): N18.3 - CHRONIC KIDNEY DISEASE, STAGE 3 (MODERATE) (4) Foot infection Code(s): L08.9 - LOCAL INFECTION OF THE SKIN AND SUBCUTANEOUS TISSUE, UNSP (5) HTN (hypertension) Code(s): I10 - ESSENTIAL (PRIMARY) HYPERTENSION Qualifiers: Hypertension type: essential hypertension Qualified Code(s): I10 - Essential (primary) hypertension (6) Neuropathy Code(s): G62.9 - POLYNEUROPATHY, UNSPECIFIED (7) Osteomyelitis Code(s): M86.9 - OSTEOMYELITIS, UNSPECIFIED Qualifiers: Osteomyelitis type: other chronic Osteomyelitis location: foot (8) S/P amputation Code(s): Z89.9 - ACQUIRED ABSENCE OF LIMB, UNSPECIFIED (9) Anemia Code(s): D64.9 - ANEMIA, UNSPECIFIED Qualifiers: Anemia type: due to chronic kidney disease Assessment/Plan 1. Resolved hyperkalemia with underlying acute on CKD 2. Hypertension 3. Type 2 diabetes mellitus 4. PVD with history of osteomyelitis s/p left TMA and wound vac placement 5. Anemia of chronic kidney disease PLAN: 1. Monitor electrolytes and renal function. 2. Continue Metoprolol 50 bid and Amlodipine 10 qd, Cardura 4 qd, ASA 81 qd and Lasix 80 qd 3. Transthoracic echocardiography to assess LV and valvular function if not done recently 4. Continue wound care
[2016-10-24] MEDS: DOCUSATE SODIUM 100 MG CAPSULE (FP) PO SCH (10:56)
[2016-10-24] MEDS: ASPIRIN COATED 81 MG TABLET.EC PO SCH (10:56)
[2016-10-24] MEDS: amLODIPine BESYLATE 10 MG TABLET (FP) PO SCH (10:57)
[2016-10-24] MEDS: FUROSEMIDE 40 MG TABLET (FP) PO SCH (10:57)
[2016-10-24] MEDS: CALCIUM ACETATE 667 MG CAPSULE (FP) PO SCH ×3 (10:57→18:01)
[2016-10-24] MEDS: FERROUS SO4 325 MG TABLET (FP) PO SCH (10:57)
[2016-10-24] MEDS: METOPROLOL TARTRATE 50 MG TABLET (FP) PO SCH (10:57)
[2016-10-24] MEDS: DULoxetine HCL 30 MG CAPSULE.DR (FP) PO SCH (10:57)
[2016-10-24] MEDS: SODIUM BICARBONATE 650 MG TABLET PO SCH (10:58)
[2016-10-24] MEDS: PREGABALIN 50 MG CAPSULE PO SCH (10:58)
[2016-10-24] MEDS: DOXAZOSIN MESYLATE 4 MG TABLET PO SCH (10:58)
--- NOTE | 2016-10-24 10:59 | PN ---
Teaching Attending Note Name of Resident: Marlena Bello ATTENDING PHYSICIAN STATEMENT I saw and evaluated the patient. I reviewed the resident's note and discussed the case with the resident. I agree with the resident's findings and plan as documented. SUBJECTIVE:currently asymptomatic. states while eating breakfast felt lightheaded. sugar was checked and was 53. given cranberry juice with resolution of symptoms. repeat fs 115. now asymptomatic. tolerated bone bx last night. denies Cp, SOB,fever, chills, N/V/C/D OBJECTIVE: Last Vital Signs Temp Pulse Resp BP Pulse Ox 98.7 F 70 20 153/81 96 10/24/16 05:16 10/24/16 05:16 10/24/16 05:16 10/24/16 05:16 10/23/16 21:00 General NAD CV S1 S2 RRR no murmur/rub/gallop Lungs CTA B/L no wheezing/rales/rhonchi ASSESSMENT AND PLAN: 61yo M with PMH OM, DM, PVD, HTN, CKD stage IV, COPD sent to the ER for hyperkalemia 1. Persistent hyperkalemia- remains stable. likely in setting of acute on CKD. as had this last time. will need to monitor kidney and potassium levels. kayexylate prn 2. HTN-improved. cont current regimen 3. Hypogylcemia-overall improved. did have fs 50's this AM but also received coverage. at home he does not take coverage. he has very detailed regimen he uses at home with carb counting. counseled him on continuing this regimen. with erring on lower range with coverage. 4. Acute on CKD- baseline Cr 2.9. now better than baseline. cont management per nephrology. 5. L foot OM- s/p wound vac in place. s/p bone bx last night. pt to follow up results with podiatry. wound vac in place. cont management per podiatry 6. d/c today to [facility] with wound vac in place.
[2016-10-24] MEDS: oxyCODONE HCL 5 MG TABLET PO PRN ×2 (11:11→17:58)
[2016-10-24 13:37] LABS: BASOPHIL 0.5 % (0-2.0); EOSINOPHIL 9.8 % (0-4.5); MCHC 31.9 g/dl (32.0-35.9); MEAN CELL VOLUME 78.3 fl (80-96); MEAN PLT VOLUME 7.1 fl (7.5-11.1); NEUTROPHILS 63.1 % (42.8-82.8); PLATELET COUNT 309 K/MM3 (134-434); RDW 24.4 % (11.9-15.9); WHITE BLOOD COUNT 6.4 K/mm3 (4.0-10.0)
--- NOTE | 2016-10-24 14:16 | DS ---
Physical Exam: SUBJECTIVE: Patient seen and examined by me at bedside. No overnight events noted. Patient denies shortness of breath, fever, chills, nausea, vomiting, abdominal pain, chest pain, palpitations, shortness of breath, headaches, dizziness. OBJECTIVE: Vital Signs Period Temp Pulse Resp BP Sys/Gutierrez Pulse Ox Last 24 Hr 97.8 F-98.7 F 62-123 20-20 135-153/72-95 96 PHYSICAL EXAM GENERAL: The patient is awake, alert, and fully oriented, in no acute distress. LUNGS: Breath sounds equal, clear to auscultation bilaterally, no wheezes, no crackles, no accessory muscle use. HEART: Regular rate and rhythm, S1, S2 without murmur, rub or gallop. ABDOMEN: Soft, nontender, nondistended, normoactive bowel sounds EXTREMITIES: Left metatarsal amputation with wound dressing wrapped c/d/i. +1 pitting edema in left lower extremity LABS Laboratory Results - last 24 hr 10/23/16 10/24/16 10/24/16 17:53 05:47 06:00 WBC RBC Hgb Hct MCV MCHC RDW Plt Count MPV Neutrophils % Lymphocytes % Monocytes % Eosinophils % Basophils % Sodium 141 Potassium 4.6 Chloride 109 H Carbon Dioxide 25 Anion Gap 7 L BUN 46 H Creatinine 2.8 H Creat Clearance w eGFR 23.15 POC Glucometer 210 237 Random Glucose 183 H D Calcium 7.8 L Total Bilirubin 0.4 D AST 17 D ALT 25 Alkaline Phosphatase 174 H D Total Protein 6.5 Albumin 2.3 L 10/24/16 10/24/16 10/24/16 08:11 08:21 11:43 WBC RBC Hgb Hct MCV MCHC RDW Plt Count MPV Neutrophils % Lymphocytes % Monocytes % Eosinophils % Basophils % Sodium Potassium Chloride Carbon Dioxide Anion Gap BUN Creatinine Creat Clearance w eGFR POC Glucometer 53 112 186 Random Glucose Calcium Total Bilirubin AST ALT Alkaline Phosphatase Total Protein Albumin 10/24/16 13:28 WBC 6.4 RBC 3.54 L Hgb 8.9 L D Hct 27.8 L MCV 78.3 L MCHC 31.9 L RDW 24.4 H Plt Count 309 MPV 7.1 L D Neutrophils % 63.1 Lymphocytes % 15.8 D Monocytes % 10.8 H Eosinophils % 9.8 H Basophils % 0.5 Sodium Potassium Chloride Carbon Dioxide Anion Gap BUN Creatinine Creat Clearance w eGFR POC Glucometer Random Glucose Calcium Total Bilirubin AST ALT Alkaline Phosphatase Total Protein Albumin HOSPITAL COURSE: Patient is a 61 year old male with a PMHx of DMII with nephropathy and neuropathy, Osteomyelitis s/p left metatarsal amputation, PVD, HTN and CKD, COPD , Anxiety/Depression who presented from [place] for abnormal labs from the halfway. Patient was found to have a potassium level of 6.7. Patient was admitted for acute hyperkalemia likely secondary to worsening CKD. Patient was treated with Kayaxelate, insulin, D50, Albuterol, Calcium Gluconate. Patient was then started on Lasix po daily to help with potassium clearance. Patient responded well and Hyperkalemia resolved. Patient sent out with Kayaxelate PRN if potassium reaches >5 However, patient will still need to continue having his Potassium checked at the halfway. Patient also has a PAD with S/P osteomyelitis and amputation of left foot with wound vac placed. Patient was seen by podiatry and a repeat Foot x-ray was done as well as bone biopsy with cultures pending. Patient was told he could follow up with his bone biopsy with podiatry at the halfway. Patient was also found to have hypoglycemia during this hospitalization. Patient has an order for Levemir 20 units but reports he does carb counting and bases his units on that. Patient's A1C came back 5.9 and patient reports knowing how to dose his insulin. Patient advised to take 10 units of his insulin at bedtime and can continue what he was doing at home. Patient will be transferred back to [facility] for treatment and monitoring. Date of Admission:10/17/16 Date of Discharge: 10/24/16 Minutes to complete discharge: 35 Discharge Summary Reason For Visit: HYPERKALEMIA Current Active Problems FROYLAN (acute kidney injury) (Acute) Acute hyperkalemia (Acute) Anemia (Acute) Hypoglycemia (Acute) Type 2 diabetes mellitus with foot ulcer (Acute) Condition: Stable - Instructions Diet, Activity, Other Instructions: -You were admitted for abnormal labs and was found to have high potassium, which can be dangerous. Your potassium went back to normal but needs to be followed up on this week. We will be sending you with something called Kayexalate and should be given to you if you have potassium above 5. -Your Insulin requirement for Levemir will be lowered to 10 units. You may continue with Carb counting as well -You will need to follow up with the Nephrology to continue monitoring your kidney function. Contact information will be given to you in the discharge packet for Dr. Jansen -You will continue with the wound vac with podiatry and wound care follow up for your blood culture results -Your Instructional Technology Director recommended you use KCI Portavac simplace dressing with black foam. You facility would need to order that. -If you experience any worsening symptoms. Return to the emergency department. Referrals: Brian Rojo MD [Primary Care Provider] - Natan Jones MD [Staff Physician] - Aroldo Galvan MD [Staff Physician] - Disposition: [facility] - Home Medications Comprehensive Discharge Medication List: Ambulatory Orders Amlodipine Besylate [Norvasc -] 10 mg PO DAILY 11/07/14 Ascorbate Calcium [Vitamin C] 500 mg PO DAILY 11/07/14 Duloxetine HCl 30 mg PO DAILY 11/07/14 Ferrous Sulfate [Feosol] 325 mg PO DAILY 11/07/14 Folic Acid - 1 mg PO DAILY 11/07/14 Trazodone HCl 300 mg PO HS 11/07/14 Zinc Sulfate 220 mg PO DAILY 11/07/14 Doxazosin Mesylate [Cardura -] 4 mg PO DAILY #30 tablet 11/24/14 Aspirin [ASA -] 81 mg PO DAILY 03/08/16 Oxycodone HCl/Acetaminophen [Percocet 5-325 mg Tablet] 1 tab PO QID #120 tablet MDD 4 08/01/16 Mirtazapine [Remeron -] 30 mg PO HS 08/19/16 Pregabalin [Lyrica -] 100 mg PO BID MDD 2 08/19/16 Albuterol 0.083% Nebulizer Coretta [Ventolin 0.083% Nebulizer Soln -] 1 amp NEB Q4H PRN #0 amp 09/12/16 Albuterol 2.5/Ipratropium 0.5 [Duoneb -] 1 amp NEB QIDR amp 09/12/16 Calcium Acetate [Phoslo -] 1,334 mg PO TIDCM #180 capsule 09/12/16 Epoetin Joe [Procrit -] 10,000 unit SQ TUTHSA #12 ml 09/12/16 Insulin Sliding Scale [Novolog Vial Sliding Scale -] 1 vial SQ TIDAC units Metoprolol Tartrate [Lopressor -] 50 mg PO BID tablet 09/12/16 Furosemide [Lasix -] 80 mg PO DAILY #30 tablet 10/24/16 Insulin (Levemir) [Levemir Flexpen -] 10 units SQ DAILY #1 vial 10/24/16 Sodium Bicarbonate - 650 mg PO BID #0 tablet 10/24/16 Sodium Polystyrene Sulfonate [Kayexalate] 15 gm COL PRN #1 bottle 10/24/16 This patient is new to me today: No Emergency Visit: Yes ED Registration Date: 10/17/16 Care time: The patient presented to the Emergency Department on the above date and was hospitalized for further evaluation of their emergent condition. Critical Care patient: No - Discharge Referral Referred to [facility] No
[2016-10-24 14:17] LABS: ANISOCYTOSIS 2+; PLATELET ESTIMATE ADEQUATE (NORMAL)
[2016-10-24 14:18] LABS: HYPOCHROMIA 1+
--- NOTE | 2016-10-24 16:20 | PN ---
Progress Note (short form) - Note Progress Note: The patient is feeling better. Good urine output. The Renal functions are stable. The serum K in acceptable range. Laboratory Last Values WBC 6.4 K/mm3 (4.0-10.0) 10/24/16 13:28 RBC 3.54 M/mm3 (4.00-5.60) L 10/24/16 13:28 Hgb 8.9 GM/dL (11.7-16.9) L D 10/24/16 13:28 Hct 27.8 % (35.4-49) L 10/24/16 13:28 MCV 78.3 fl (80-96) L 10/24/16 13:28 MCHC 31.9 g/dl (32.0-35.9) L 10/24/16 13:28 RDW 24.4 % (11.9-15.9) H 10/24/16 13:28 Plt Count 309 K/MM3 (134-434) 10/24/16 13:28 MPV 7.1 fl (7.5-11.1) L D 10/24/16 13:28 Neutrophils % 63.1 % (42.8-82.8) 10/24/16 13:28 Lymphocytes % 15.8 % (8-40) D 10/24/16 13:28 Monocytes % 10.8 % (3.8-10.2) H 10/24/16 13:28 Eosinophils % 9.8 % (0-4.5) H 10/24/16 13:28 Basophils % 0.5 % (0-2.0) 10/24/16 13:28 Differential Comment Slide scanned 10/17/16 20:05 Platelet Estimate Adequate (NORMAL) 10/24/16 13:28 Platelet Comment No clumping noted 10/24/16 13:28 Polychromasia Occ 10/17/16 20:05 Hypochromic-Microcytic 1+ 10/24/16 13:28 Anisocytosis 2+ 10/24/16 13:28 Microcytosis 1+ 10/21/16 05:35 Macrocytosis Occ 10/17/16 20:05 INR 1.21 (0.82-1.09) H 10/17/16 20:05 Sodium 141 mmol/L (136-145) 10/24/16 06:00 Potassium 4.6 mmol/L (3.5-5.1) 10/24/16 06:00 Chloride 109 mmol/L (98-107) H 10/24/16 06:00 Carbon Dioxide 25 mmol/L (21-32) 10/24/16 06:00 Anion Gap 7 (8-16) L 10/24/16 06:00 BUN 46 mg/dL (7-18) H 10/24/16 06:00 Creatinine 2.8 mg/dL (0.7-1.3) H 10/24/16 06:00 Creat Clearance w eGFR 23.15 (>60) 10/24/16 06:00 POC Glucometer 186 UNITS (()) 10/24/16 11:43 Random Glucose 183 mg/dL (74-106) H D 10/24/16 06:00 Lactic Acid 0.7 mmol/L (0.4-2.0) 10/17/16 20:05 Calcium 7.8 mg/dL (8.5-10.1) L 10/24/16 06:00 Phosphorus 5.7 mg/dL (2.5-4.9) H 10/22/16 05:57 Magnesium 1.8 mg/dL (1.8-2.4) 10/22/16 05:57 Total Bilirubin 0.4 mg/dL (0.2-1.0) D 10/24/16 06:00 AST 17 U/L (15-37) D 10/24/16 06:00 ALT 25 U/L (12-78) 10/24/16 06:00 Alkaline Phosphatase 174 U/L (45-117) H D 10/24/16 06:00 Creatine Kinase 400 IU/L (39-308) H 10/17/16 20:05 CK-MB (CK-2) 3.757 ng/ml (0.5-3.6) H 10/17/16 20:05 CK-MB (CK-2) Rel Index Cancelled 10/17/16 20:05 Troponin I < 0.02 ng/ml (0.00-0.05) 10/17/16 20:05 Total Protein 6.5 g/dl (6.4-8.2) 10/24/16 06:00 Albumin 2.3 g/dl (3.4-5.0) L 10/24/16 06:00 Lipase 41 U/L (73-393) L 10/17/16 20:05 Urine Color Straw 10/17/16 21:15 Urine Appearance Clear 10/17/16 21:15 Urine pH 6.0 (5.0-8.0) 10/17/16 21:15 Ur Specific [place] 1.020 (1.005-1.025) 10/17/16 21:15 Urine Protein 2+ (NEGATIVE) H 10/17/16 21:15 Urine Glucose (UA) Negative (NEGATIVE) 10/17/16 21:15 Urine Ketones Negative (NEGATIVE) 10/17/16 21:15 Urine Blood 1+ (NEGATIVE) H 10/17/16 21:15 Urine Nitrite Negative (NEGATIVE) 10/17/16 21:15 Urine Bilirubin Negative (NEGATIVE) 10/17/16 21:15 Urine Urobilinogen Negative E.U./dl (0.2-1.0) 10/17/16 21:15 Ur Leukocyte Esterase Negative (NEGATIVE) 10/17/16 21:15 Urine RBC 5 /hpf (0-3) 10/17/16 21:15 Urine WBC 1 /hpf (3-5) 10/17/16 21:15 Ur Epithelial Cells Rare /hpf (FEW) 10/17/16 21:15 Blood Type B POSITIVE 10/17/16 20:05 Antibody Screen Negative 10/17/16 20:05 Vital Signs Temperature 98.9 F 10/24/16 14:52 Pulse Rate 98 H 10/24/16 14:52 Respiratory Rate 20 10/24/16 14:52 Blood Pressure 150/82 10/24/16 14:52 O2 Sat by Pulse Oximetry (%) 96 10/23/16 21:00 Current Active Problems FROYLAN (acute kidney injury) (Acute) Acute hyperkalemia (Acute) Anemia (Acute) Hypoglycemia (Acute) Type 2 diabetes mellitus with foot ulcer (Acute) Plan: The Patient will f/u in the office for his CKD. Thank you for your trust in this referral. Problem List - Problems (1) Type 2 diabetes mellitus with foot ulcer Code(s): E11.621 - TYPE 2 DIABETES MELLITUS WITH FOOT ULCER L97.509 - NON-PRESSURE CHRONIC ULCER OTH PRT UNSP FOOT W UNSP SEVERITY (2) FROYLAN (acute kidney injury) Code(s): N17.9 - ACUTE KIDNEY FAILURE, UNSPECIFIED (3) Acute hyperkalemia Code(s): E87.5 - HYPERKALEMIA (4) Hyperglycemia Code(s): R73.9 - HYPERGLYCEMIA, UNSPECIFIED (5) Hyperkalemia Code(s): E87.5 - HYPERKALEMIA (6) 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 Code(s): E11.9 - TYPE 2 DIABETES MELLITUS WITHOUT COMPLICATIONS Qualifiers: 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 type: type 2 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 complication status: without complication 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 fci insulin use: without fci use Qualified Code(s): E11.9 - Type 2 diabetes mellitus without complications (7) Diabetic neuropathy Code(s): E11.40 - TYPE 2 DIABETES MELLITUS WITH DIABETIC NEUROPATHY, UNSP Qualifiers: 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 type: type 2 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 complication detail: diabetic polyneuropathy Qualified Code(s): E11.42 - Type 2 diabetes mellitus with diabetic polyneuropathy (8) HTN (hypertension) Code(s): I10 - ESSENTIAL (PRIMARY) HYPERTENSION Qualifiers: Hypertension type: essential hypertension Qualified Code(s): I10 - Essential (primary) hypertension (9) S/P amputation Code(s): Z89.9 - ACQUIRED ABSENCE OF LIMB, UNSPECIFIED (10) Severe anemia Code(s): D64.9 - ANEMIA, UNSPECIFIED
[2016-10-24 17:12] VITALS: BP 149/87; PULSE 93; TEMP 98.3
--- NOTE | 2016-10-25 11:18 | EKG ---
Test Reason : Blood Pressure : / mmHG Vent. Rate : 100 BPM Atrial Rate : 100 BPM P-R Int : 000 ms QRS Dur : 092 ms QT Int : 328 ms P-R-T Axes : 016 077 127 degrees QTc Int : 423 ms POOR DATA QUALITY, INTERPRETATION MAY BE ADVERSELY AFFECTED SINUS RHYTHM WITH 1ST DEGREE A-V BLOCK NONSPECIFIC T WAVE ABNORMALITY ABNORMAL ECG WHEN COMPARED WITH ECG OF 19-OCT-2016 13:13, VENT. RATE HAS INCREASED BY 37 BPM Confirmed by DALE FRANCO MD ([id number]) on 10/25/2016 11:18:24 AM Referred By: Confirmed By:DALE FRANCO MD
== END 2016-10-24 18:49 | DRG 674 ==
LOC: JER 18:24 → JERBED 21:39 → UNDOADMIN 21:43 → JERBED 21:43 → J6S 10-18 15:10 → J4W 10-19 17:09 → J7W 10-22 13:00
PROVIDERS: ADMIT Family Medicine; ATTEND Internal Medicine
PROC: 0QBP0ZX Excision of Left Metatarsal, Open Approach, Diagnostic (ICD-10-PCS; principal; 2016-10-23)
PROC: 0QBM0ZX Excision of Left Tarsal, Open Approach, Diagnostic (ICD-10-PCS; 2016-10-23)
DX: N17.9 Acute kidney failure, unspecified (principal); M86.672 Other chronic osteomyelitis, left ankle and foot; E87.5 Hyperkalemia; E11.51 Type 2 diabetes mellitus with diabetic peripheral angiopathy without gangrene; Z79.4 Long term (current) use of insulin; E11.22 Type 2 diabetes mellitus with diabetic chronic kidney disease; I12.9 Hypertensive chronic kidney disease with stage 1 through stage 4 chronic kidney disease, or unspecified chronic kidney disease; N18.4 Chronic kidney disease, stage 4 (severe); E11.69 Type 2 diabetes mellitus with other specified complication; Z89.432 Acquired absence of left foot; Z89.411 Acquired absence of right great toe; E11.42 Type 2 diabetes mellitus with diabetic polyneuropathy; E11.621 Type 2 diabetes mellitus with foot ulcer; E11.610 Type 2 diabetes mellitus with diabetic neuropathic arthropathy; E11.649 Type 2 diabetes mellitus with hypoglycemia without coma; F32.9 Major depressive disorder, single episode, unspecified; J43.9 Emphysema, unspecified; D63.1 Anemia in chronic kidney disease; L97.509 Non-pressure chronic ulcer of other part of unspecified foot with unspecified severity; E83.39 Other disorders of phosphorus metabolism; F41.9 Anxiety disorder, unspecified; N17.0 Acute kidney failure with tubular necrosis
CPT/HCPCS: 36415; 36589; 71020-TC; 73721-LT; 80048; 80053; 81003; 81015; 82550; 82553; 83605; 83690; 83735; 84100; 84484; 85025; 85027; 85610; 86850; 86900; 86901; 87040; 87070; 87075; 87086; 87186; 87205; 93005; 93010; 93971-TC; 94640; 97161-GP; 99284-25; J1756

== ENCOUNTER → 2016-10-17 | Day surgery (SDC) | payer OTHER | END | disposition home or self-care (01) | LOC: JRADIR 09:30 | PROVIDERS: ATTEND Nurse Practitioner | PROC: 02PY03Z Removal of Infusion Device from Great Vessel, Open Approach (ICD-10-PCS; principal; 2016-10-17) | DX: Z45.2 Encounter for adjustment and management of vascular access device (principal) | CPT/HCPCS: 36589 ==

== ENCOUNTER 2017-03-18 13:26 | Inpatient (IN) | payer OTHER ==
[2017-03-18 14:03] VITALS: BMI 21.9
[2017-03-18] MEDS ORDERED: KETOROLAC TROMETHAMINE 30 MG/1 ML VIAL IVPUSH ONE (14:03)
--- NOTE | 2017-03-18 14:06 | PDOC ---
History of Present Illness - General Chief Complaint: Injury Stated Complaint: FALL Time Seen by Provider: 03/18/17 13:48 History Source: Patient - History of Present Illness Timing/Duration: 1-3 hours Severity: severe Associated Symptoms: reports: headaches, syncope. denies: chest pain, cough, fever/chills, nausea/vomiting, shortness of breath Past History - Past Medical History Allergies/Adverse Reactions: Allergies Allergy/AdvReac Type Severity Reaction Status Date / Time shellfish derived Allergy Severe "HIVES" Verified 03/18/17 14:03 No Known Drug Allergies Allergy Verified 03/18/17 14:03 Home Medications: Ambulatory Orders Amlodipine Besylate [Norvasc -] 10 mg PO DAILY 11/07/14 Ascorbate Calcium [Vitamin C] 500 mg PO DAILY 11/07/14 Ferrous Sulfate [Feosol] 325 mg PO DAILY 11/07/14 Folic Acid - 1 mg PO DAILY 11/07/14 Trazodone HCl 300 mg PO HS 11/07/14 Zinc Sulfate 220 mg PO DAILY 11/07/14 Doxazosin Mesylate [Cardura -] 4 mg PO DAILY #30 tablet 11/24/14 Aspirin [ASA -] 81 mg PO DAILY 03/08/16 Mirtazapine [Remeron -] 30 mg PO HS 08/19/16 Albuterol 0.083% Nebulizer Coretta [Ventolin 0.083% Nebulizer Soln -] 1 amp NEB Q4H PRN #0 amp 09/12/16 Albuterol 2.5/Ipratropium 0.5 [Duoneb -] 1 amp NEB QIDR amp 09/12/16 Calcium Acetate [Phoslo -] 1,334 mg PO TIDCM #180 capsule 09/12/16 Epoetin Joe [Procrit -] 10,000 unit SQ TUTHSA #12 ml 09/12/16 Insulin Sliding Scale [Novolog Vial Sliding Scale -] 1 vial SQ TIDAC units Metoprolol Tartrate [Lopressor -] 50 mg PO BID tablet 09/12/16 Furosemide [Lasix -] 80 mg PO DAILY #30 tablet 10/24/16 Insulin (Levemir) [Levemir Flexpen -] 10 units SQ DAILY #1 vial 10/24/16 Sodium Bicarbonate 325 mg PO BID 07/26/17 Pregabalin [Lyrica -] 100 mg PO BID #60 tablet MDD 2 12/21/16 Oxycodone HCl [Roxicodone -] 5 mg PO QID #120 tablet MDD 4 03/07/17 Anemia: No Asthma: No Cancer: No Cardiac Disorders: No CVA: No COPD: Yes CHF: No Dementia: No Diabetes: Yes (on insulin, with neuropathy , diabetic foot ulcer) GI Disorders: No Disorders: No HTN: Yes Hypercholesterolemia: No Liver Disease: No Seizures: No Thyroid Disease: No Lung CA: Yes (depression) Other medical history: left foot ulcer not healing for many years. - Surgical History Abdominal Surgery: Yes (HERNIA) Appendectomy: No Cardiac Surgery: No Cholecystectomy: No Lung Surgery: No Neurologic Surgery: No Orthopedic Surgery: Yes (transmetatarsal amputation left foot, rt gr toe amputation) - Immunization History Immunization Up to Date: Yes - Suicide/Smoking/Psychosocial Hx Smoking Status: No Smoking History: Current every day smoker Have you smoked in the past 12 months: No Number of Cigarettes Smoked Daily: 1 Cigars Per Day: 1 Information on smoking cessation initiated: No 'Breaking Loose' booklet given: 03/08/16 Hx Alcohol Use: No Drug/Substance Use Hx: No Substance Use Type: Alcohol, Cocaine, Marijuana Hx Substance Use Treatment: No Review of Systems - Review of Systems Constitutional: No: Chills, Fever Respiratory: No: Shortness of Breath Cardiac (ROS): No: Chest Pain, Palpitations Neurological: Yes: Headache. No: Numbness, Tingling *Physical Exam - Vital Signs Last Vital Signs Temp Pulse Resp BP Pulse Ox 97.0 F L 86 16 94/65 100 03/18/17 13:30 03/18/17 13:30 03/18/17 13:30 03/18/17 13:30 03/18/17 13:30 - Physical Exam General Appearance: Yes: Appropriately Dressed. No: Apparent Distress HEENT: positive: Normal Voice Neck: positive: Tender (to midline cspine), Supple Respiratory/Chest: positive: Chest Tender (to L sided of lower chest), Lungs Clear, Normal Breath Sounds. negative: Respiratory Distress Cardiovascular: positive: Regular Rate, S1, S2 Gastrointestinal/Abdominal: positive: Soft. negative: Tender Musculoskeletal: negative: CVA Tenderness Extremity: positive: Other (s/p L TMA, dressing in place) Integumentary: positive: Dry, Warm Neurologic: positive: Fully Oriented, Alert, Normal Mood/Affect ED Treatment Course - LABORATORY CBC & Chemistry Diagram: 03/18/17 14:45 03/18/17 14:45 - RADIOLOGY Radiology Studies Ordered: Category Date Time Status CERVICAL SPINE CT W/O CONTR [CT] Stat CT Scan 03/18/17 14:[address] WITHOUT CONTRAST [CT] Stat CT Scan 03/18/17 14:02 Ordered RIBS BILATERAL [RAD] Stat Radiology 03/18/17 14:02 Ordered Medical Decision Making - Medical Decision Making 03/18/17 14:06 61-year-old male history of hypertension, insulin-dependent diabetic, s/p R great toe amp, s/p L TMA, anemia s/p transfusion 08/13, here w/ syncope. Pt states while enroute to his podistrist at [facility] this afternoon, his whole body started "tingling" and that he became weak and was "unable to hold myself up". Next thing he remembers is waking up on the ground on his left side. States bystanders called 911. Pt c/o pain to back of head, neck and pain "to my left ribs" as per pt. No back or hip pain and has not tried to bear weight since fall. Patient states at baseline he uses a cane but for the past week, has felt more off balance and has been using his walker. Was not using his walker today as per patient. Denies any dizziness or chest pain prior to fall. No visual changes, slurred speech, focal weakness, n/v. Not on blood thinners. No h/o seizures See exam Syncope w/ multiple injuries today S/p similar syncopal episode 08/19/16 and was admitted to ICU for HGB of 3 and sepsis 2/2 L foot OM No CP or dizziness prior to episode Not on blood thinners Alert but hypotensive to 90s/60s w/ clear chest/lungs and non-focal Unable to clear cspine given midline ttp -ekg/cxr/labs -CTH and cspine -rib series and hip films -local wound care for L religious abrasion (tetanus UTD) -anticipate admission 03/18/17 15:09 03/18/17 15:12 Multiple lab abnormalities including Wbc 21, source possible L foot (xr r/o osteo, ua and CXR pending), vanc/zosyn ordered. HGB 7.8 (based on chart review , baseline HGB 7-8). Will hold off on transfusion. Cr 7.7 w/ K of 7.4 and NA of 117! EKG unremarkable. IVF and hyperK cocktail in progress. Will get renal consult and arrange admission to the unit 03/18/17 15:47 03/18/17 16:[address] Boyce, who requests consult to Dr Brown of ID to be placed. Patient still pending renal and vice president & general manager [employer] [place] prior to admission 03/18/17 16:33 Pt accepted to the unit. Dr Inderjit Rivera of renal aware, requesting tobias be placed 03/18/17 17:14 Dr. 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 As per M.D. will come see patient tonight 03/18/17 17:16 03/18/17 17:22 CT cspine neg for fx, c-collar removed. CTH read as neg. Lactate neg 03/18/17 17:23 03/18/17 18:09 *DC/Admit/Observation/Transfer Diagnosis at time of Disposition: Hyperkalemia ARF (acute renal failure) Qualifiers: Acute renal failure type: unspecified Qualified Code(s): N17.9 - Acute kidney failure, unspecified Syncope Qualifiers: Syncope type: unspecified Qualified Code(s): R55 - Syncope and collapse - Discharge Dispostion Condition at time of disposition: Guarded Admit: Yes - Referrals - Patient Instructions - Post Discharge Activity
[2017-03-18] MEDS ORDERED: KETOROLAC TROMETHAMINE 30 MG/1 ML VIAL ONE (14:28)
[2017-03-18] MEDS ORDERED: SODIUM CHLORIDE 1,000 ML IV STA ×2 (14:42→15:54)
[2017-03-18 14:55] LABS: MCH 25.3 pg (25.7-33.7); MCHC 31.3 g/dl (32.0-35.9); MEAN CELL VOLUME 81.1 fl (80-96); MEAN PLT VOLUME 8.5 fl (7.5-11.1); PLATELET COUNT 422 K/MM3 (134-434); RDW 18.9 % (11.9-15.9); WHITE BLOOD COUNT 21.4 K/mm3 (4.0-10.0)
[2017-03-18] MEDS ORDERED: VANCOMYCIN 1,000 MG in DEXTROSE 5%-WATER - 250 ML IVPB ONE (15:09)
[2017-03-18] MEDS ORDERED: PIPERACIL/TAZOB 3.375 GM 3.375 GM/50 ML PREMIX IVPB ONE (15:09)
[2017-03-18 15:17] LABS: ALBUMIN 1.7 g/dl (3.4-5.0); ANION GAP 11 (8-16); CALCIUM 7.1 mg/dL (8.5-10.1); CO2 17 mmol/L (21-32); SGPT/ALT 14 U/L (12-78); TOT PROT 6.2 g/dl (6.4-8.2)
[2017-03-18 15:21] LABS: ALK PHOS 167 U/L (45-117); TROPONIN I < 0.02 ng/ml (0.00-0.05)
[2017-03-18 15:26] LABS: BILIRUBIN,TOTAL 0.4 mg/dL (0.2-1.0); CPK 118 IU/L (39-308); SGOT/AST 12 U/L (15-37)
[2017-03-18 15:28] LABS: CREATININE 7.7 mg/dL (0.7-1.3); GLUCOSE,RANDOM 323 mg/dL (74-106)
[2017-03-18] MEDS ORDERED: SODIUM POLYSTYRENE SULFONATE 15 GM/60 ML BOTTLE PO ONE (15:29)
[2017-03-18] MEDS ORDERED: PIPERACILLIN/TAZOB 3.375 GM 3.375 GM/50 ML BAG IVPB ONE ×2 (15:30→17:07)
[2017-03-18] MEDS ORDERED: CALCIUM GLUCONATE 10% - 1,000 MG/10 ML VIAL IVPUSH ONE (15:31)
[2017-03-18] MEDS ORDERED: DEXTROSE 50%-WATER - 25 GM/50 ML VIAL IVPUSH ONE (15:32)
[2017-03-18] MEDS ORDERED: INSULIN REGULAR HUMAN 100 UNITS/ML *VIAL IVPUSH ONE (15:32)
[2017-03-18] MEDS ORDERED: DEXTROSE 50%-WATER - 25 GM/50 ML VIAL ONE (15:44)
[2017-03-18] MEDS ORDERED: INSULIN REGULAR HUMAN 100 UNITS/ML *VIAL ONE (15:44)
[2017-03-18] MEDS ORDERED: SODIUM POLYSTYRENE SULFONATE 15 GM/60 ML BOTTLE ONE (16:37)
[2017-03-18] MEDS ORDERED: CALCIUM GLUCONATE 10% - 1,000 MG/10 ML VIAL ONE (16:37)
[2017-03-18] MEDS ORDERED: VANCOMYCIN 1 GRAM (PRE-DOCKED) 1,000 MG/250 ML BAG IVPB ONE (17:07)
--- NOTE | 2017-03-18 17:48 | CON.NEP ---
Consult Consult Specialty:: Nephrology Referred by:: LINUS Hazel Reason for Consultation:: Acute Renal Failure with Hyperkalemia and Hyponatremia - History of Present Illness Chief Complaint: Syncope History of Present Illness: This is a 61 year old gentleman with PMhx of CKD stage 4 (baseline Cr 2.8), Hypertension, DM, PVD, Depression who presented with syncope and found to have acute on chronic renal failure with hyperkalemia and hyponatremia. Pt reports that he was going to see her wound care/suergon for his foot when he passed out. No palpitations, chest pain. Reports the feeling that his muscle were giving out on him. Pt reports not seeing a doctor since his last hospital d/c. Lives in assisted living. Pt is on Lasix. No YASMIN/ARB. Denies any N/V/D. No Abd pain. Pt listed as being on Bactrium on med list. Reports making urine. 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 Cardio/Vascular: Yes: HTN Gastrointestinal: Yes: GERD Renal/: Yes: Renal Inusuff Psych: Yes: Depression Musculoskeletal: Yes: Other (chronic pain) Rheumatology: Yes: Other (history of osteomyelitis) Endocrine: Yes: Diabetes Mellitus - Past Surgical History Past Surgical History: Yes: Amputation (transmetatarsal of Left foot) - Alcohol/Substance Use Hx Alcohol Use: No Number of Drinks Daily: 2 (weekends) - Smoking History Smoking history: Current every day smoker Have you smoked in the past 12 months: No Aproximately how many cigarettes per day: 1 - Social History Usual Living Arrangement: Senior Living ADL: Support Services History of Recent Travel: No Home Medications - Allergies Allergies/Adverse Reactions: Allergies Allergy/AdvReac Type Severity Reaction Status Date / Time shellfish derived Allergy Severe "HIVES" Verified 03/18/17 14:03 No Known Drug Allergies Allergy Verified 03/18/17 14:03 - Home Medications Home Medications: Ambulatory Orders Amlodipine Besylate [Norvasc -] 10 mg PO DAILY 11/07/14 Ascorbate Calcium [Vitamin C] 500 mg PO DAILY 11/07/14 Ferrous Sulfate [Feosol] 325 mg PO DAILY 11/07/14 Folic Acid - 1 mg PO DAILY 11/07/14 Trazodone HCl 300 mg PO HS 11/07/14 Zinc Sulfate 220 mg PO DAILY 11/07/14 Doxazosin Mesylate [Cardura -] 4 mg PO DAILY #30 tablet 11/24/14 Aspirin [ASA -] 81 mg PO DAILY 03/08/16 Mirtazapine [Remeron -] 30 mg PO HS 08/19/16 Albuterol 0.083% Nebulizer Coretta [Ventolin 0.083% Nebulizer Soln -] 1 amp NEB Q4H PRN #0 amp 09/12/16 Albuterol 2.5/Ipratropium 0.5 [Duoneb -] 1 amp NEB QIDR amp 09/12/16 Calcium Acetate [Phoslo -] 1,334 mg PO TIDCM #180 capsule 09/12/16 Epoetin Joe [Procrit -] 10,000 unit SQ TUTHSA #12 ml 09/12/16 Insulin Sliding Scale [Novolog Vial Sliding Scale -] 1 vial SQ TIDAC units Metoprolol Tartrate [Lopressor -] 50 mg PO BID tablet 09/12/16 Furosemide [Lasix -] 80 mg PO DAILY #30 tablet 10/24/16 Insulin (Levemir) [Levemir Flexpen -] 10 units SQ DAILY #1 vial 10/24/16 Sodium Bicarbonate 325 mg PO BID 11/21/16 Pregabalin [Lyrica -] 100 mg PO BID #60 tablet MDD 2 12/21/16 Oxycodone HCl [Roxicodone -] 5 mg PO QID #120 tablet MDD 4 03/07/17 Family Disease History - Family Disease History Family Disease History: Diabetes: Mother Review of Systems - Review of Systems Constitutional: reports: Lethargy. denies: Chills, Fever Eyes: reports: No Symptoms HENT: reports: No Symptoms Neck: reports: No Symptoms Cardiovascular: reports: Edema. denies: Chest Pain, Palpitations, Shortness of Breath Respiratory: denies: Cough, SOB Gastrointestinal: denies: Abdominal Pain, Diarrhea, Nausea, Vomiting Genitourinary: denies: Dysuria, Flank Pain, Frequency Neurological: reports: No Symptoms Nephrology Consult - Height Height: 6 ft 4 in - Weight Weight: 81.647 kg - BMI Body Mass Index (BMI): 21.9 - Lab Results CBC,BMP: CBC, BMP 03/18/17 14:45 03/18/17 14:45 Anion Gap: Anion Gap Anion Gap 11 (8-16) 03/18/17 14:45 - Physical Examination Vital Signs: Vital Signs Temperature 97.0 F L 03/18/17 13:30 Pulse Rate 86 03/18/17 13:30 Respiratory Rate 16 03/18/17 13:30 Blood Pressure 94/65 03/18/17 13:30 O2 Sat by Pulse Oximetry (%) 100 03/18/17 13:30 Constitutional: Yes: No Distress, Calm, Poor Hygeine HENT: Yes: Atraumatic, Normocephalic Neck: Yes: Supple Cardiovascular: Yes: Regular Rate and Rhythm, S1, S2. No: JVD, Murmur, Rub Respiratory: Yes: Regular, CTA Bilaterally. No: Rales, Rhonchi Gastrointestinal: Yes: Normal Bowel Sounds, Soft, Tenderness Renal/: No: Anuria, Bladder Distention, CVA Tenderness - Left, CVA Tenderness - Right, Tobias Present Edema: Yes Edema: LLE: 1+, RLE: Trace Wound/Incision: Yes: Bleeding, Other (foul smelling) Neurological: Yes: Alert, Oriented. No: Asterixis Problem List - Problems (1) Hyponatremia Code(s): E87.1 - HYPO-OSMOLALITY AND HYPONATREMIA (2) ARF (acute renal failure) Code(s): N17.9 - ACUTE KIDNEY FAILURE, UNSPECIFIED Qualifiers: Acute renal failure type: unspecified Qualified Code(s): N17.9 - Acute kidney failure, unspecified (3) Hyperkalemia Code(s): E87.5 - HYPERKALEMIA (4) Syncope Code(s): R55 - SYNCOPE AND COLLAPSE Qualifiers: Syncope type: unspecified Qualified Code(s): R55 - Syncope and collapse (5) FROYLAN (acute kidney injury) Code(s): N17.9 - ACUTE KIDNEY FAILURE, UNSPECIFIED Assessment/Plan 61 year old gentleman with PMhx of CKD stage 4 (baseline Cr 2.8), Hypertension , DM, PVD, Depression who presented with syncope and found to have acute on chronic renal failure with hyperkalemia and hyponatremia. #Acute Renal Failure in setting of known CKD with Hyperkalemia Etiology of renal failure unclear but differential includes volume depletion in setting fo sepsis/lasix vs. obstruction vs. ATN vs AIN (bactrium) Check stat US of kidneys, tobias placement Check Urine studies Pt was on bactrium which can cause hyperkalemia and pseudo FROYLAN (decreases Cr excretion), do will discontinue any further bactrium pt is awake and alert, no overt uremic symptoms noted will treat hyperkalemia medically for now (EKG did have 1st degree AV block) repeat BMP now and Q4hr repeat Insulin/Calcium/Kayexalate as needed aggressive IVF hydration, given 2L in bolus and then NS at 150cc per hour start sodium Bicarb 1300mg BID ICU monitoring if renal function or hyperkalemia w/o improvement will warrant dialysis #Hyponatremia, likely hypovolemic Corrected Na is 122 Trend Na with isotonic fluids no acute indication for 3% saline unlikley that this is SIADH given substantial renal failure Trend Na Q4hr with BMP #Leukocytosis/Sepsis Keep MAP > 65 s/p Vanco and Zosyn in the ED f/u cultures Vascular Sx eval for foot #Acute on Chronic anemia likey related to renal failure/sepsis check stool occult blood transfuse as per ICU protocol Thank you Will follow Miguel Jansen DO
[2017-03-18 18:08] LABS: INR 1.14 (0.82-1.09); PROTHROMBIN TIME (PATIENT) 12.9 SEC (9.98-11.88)
[2017-03-18 18:29] LABS: ANION GAP 14 (8-16); CALCIUM 7.5 mg/dL (8.5-10.1); CO2 16 mmol/L (21-32); GLUCOSE,RANDOM 244 mg/dL (74-106)
[2017-03-18 18:30] LABS: URINE APPEARANCE SLCLOUDY; URINE BILIRUBIN NEGATIVE (NEGATIVE); URINE BLOOD NEGATIVE (NEGATIVE); URINE COLOR YELLOW; URINE GLUCOSE (UA) 1+ (NEGATIVE); URINE KETONE NEGATIVE (NEGATIVE); URINE NITRITE NEGATIVE (NEGATIVE); URINE UROBILINOGEN NEGATIVE mg/dL (0.2-1.0)
[2017-03-18 18:33] LABS: CREATININE 7.8 mg/dL (0.7-1.3)
[2017-03-18 18:34] LABS: URINE PROTEIN 2+ (NEGATIVE)
[2017-03-18 18:35] LABS: URINE MUCUS RARE; URINE RBC 5 /hpf (0-3); URINE WBC 13 /hpf (3-5)
--- NOTE | 2017-03-18 20:11 | HP ---
Admitting History and Physical - Primary Care Physician PCP: Kalie Boyce - Admission History of Present Illness: 61-year-old male history of esrd on hd, hypertension, insulin-dependent diabetic , s/p R great toe amp, s/p L TMA, anemia s/p transfusion 08/13, here w/ syncope. Pt states while enroute to his podistrist at [facility] this afternoon, his whole body started "tingling" and that he became weak and was "unable to hold myself up". Next thing he remembers is waking up on the ground on his left side. States bystanders called 911. Pt c/o pain to back of head, neck and pain "to my left ribs" as per pt. No back or hip pain and has not tried to bear weight since fall. Patient states at baseline he uses a cane but for the past week, has felt more off balance and has been using his walker. Was not using his walker today as per patient. Denies any dizziness or chest pain prior to fall. 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 Cardiovascular: Yes: HTN Gastrointestinal: Yes: GERD Renal/: Yes: Renal Inusuff Psych: Yes: Depression Musculoskeletal: Yes: Other (chronic pain) Rheumatology: Yes: Other (history of osteomyelitis) Endocrine: Yes: Diabetes Mellitus - Past Surgical History Past Surgical History: Yes: Amputation (transmetatarsal of Left foot) - Smoking History Smoking history: Current every day smoker Have you smoked in the past 12 months: No Aproximately how many cigarettes per day: 1 - Alcohol/Substance Use Hx Alcohol Use: No Number of Drinks Daily: 2 (weekends) - Social History ADL: Support Services History of Recent Travel: No Home Medications - Allergies Allergies/Adverse Reactions: Allergies Allergy/AdvReac Type Severity Reaction Status Date / Time shellfish derived Allergy Severe "HIVES" Verified 03/18/17 14:03 No Known Drug Allergies Allergy Verified 03/18/17 14:03 - Home Medications Home Medications: Ambulatory Orders Amlodipine Besylate [Norvasc -] 10 mg PO DAILY 11/07/14 Ascorbate Calcium [Vitamin C] 500 mg PO DAILY 11/07/14 Ferrous Sulfate [Feosol] 325 mg PO DAILY 11/07/14 Folic Acid - 1 mg PO DAILY 11/07/14 Trazodone HCl 300 mg PO HS 11/07/14 Mirtazapine [Remeron -] 30 mg PO HS 08/19/16 Albuterol 0.083% Nebulizer Coretta [Ventolin 0.083% Nebulizer Soln -] 1 amp NEB Q4H PRN #0 amp 09/12/16 Metoprolol Tartrate [Lopressor -] 50 mg PO BID tablet 09/12/16 Furosemide [Lasix -] 80 mg PO DAILY #30 tablet 10/24/16 Sodium Bicarbonate 325 mg PO BID 11/21/16 Oxycodone HCl [Roxicodone -] 5 mg PO QID #120 tablet MDD 4 03/07/17 Doxazosin Mesylate [Cardura] 4 mg PO DAILY 03/18/17 Duloxetine HCl 30 mg PO DAILY 03/18/17 Ergocalciferol (Vitamin D2) [Vitamin D2] 50,000 unit PO WEEKLY 03/18/17 Insulin (Levemir) [Levemir Flexpen -] 15 units SQ HS 03/18/17 Insulin Aspart [Novolog] 0 unit SQ ASDIR 03/18/17 Family Disease History - Family Disease History Family Disease History: Diabetes: Mother Physical Examination Vital Signs: Vital Signs Temperature 97.0 F L 03/18/17 13:30 Pulse Rate 70 03/18/17 18:58 Respiratory Rate 18 03/18/17 18:36 Blood Pressure 95/52 03/18/17 18:58 O2 Sat by Pulse Oximetry (%) 100 03/18/17 18:58 Constitutional: Yes: No Distress HENT: Yes: Atraumatic Neck: Yes: Supple Cardiovascular: Yes: Regular Rate and Rhythm Respiratory: Yes: CTA Bilaterally Gastrointestinal: Yes: Normal Bowel Sounds Extremities: Yes: Amputation (LEFT FOOT TOE), Other (LEFT) Edema: No Neurological: Yes: Alert, Oriented Labs: CBC, BMP 03/18/17 14:45 03/18/17 17:50 Problem List - Problems (1) ARF (acute renal failure) Assessment/Plan: on hd dr mendoza Code(s): N17.9 - ACUTE KIDNEY FAILURE, UNSPECIFIED Qualifiers: Acute renal failure type: unspecified Qualified Code(s): N17.9 - Acute kidney failure, unspecified (2) Hyperkalemia Assessment/Plan: on hd..will improve Code(s): E87.5 - HYPERKALEMIA (3) Hyponatremia Assessment/Plan: monitor ..on hd Code(s): E87.1 - HYPO-OSMOLALITY AND HYPONATREMIA (4) Syncope Assessment/Plan: resolved Code(s): R55 - SYNCOPE AND COLLAPSE Qualifiers: Syncope type: unspecified Qualified Code(s): R55 - Syncope and collapse (5) 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 Assessment/Plan: bgms insulin Code(s): E11.9 - TYPE 2 DIABETES MELLITUS WITHOUT COMPLICATIONS Qualifiers: 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 type: type 2 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 complication status: without complication 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: without penitentiary use Qualified Code(s): E11.9 - Type 2 diabetes mellitus without complications (6) GERD (gastroesophageal reflux disease) Code(s): K21.9 - GASTRO-ESOPHAGEAL REFLUX DISEASE WITHOUT ESOPHAGITIS (7) HTN (hypertension) Assessment/Plan: on meds stable Code(s): I10 - ESSENTIAL (PRIMARY) HYPERTENSION Qualifiers: Hypertension type: essential hypertension Qualified Code(s): I10 - Essential (primary) hypertension (8) Type 2 diabetes mellitus with foot ulcer Assessment/Plan: dr [place] on case Code(s): E11.621 - TYPE 2 DIABETES MELLITUS WITH FOOT ULCER; L97.509 - NON- PRESSURE CHRONIC ULCER OTH PRT UNSP FOOT W UNSP SEVERITY Assessment/Plan Laboratory Tests 03/18/17 03/18/17 03/18/17 14:45 14:45 17:00 WBC 21.4 H D RBC 3.07 L D Hgb 7.8 L D Hct 24.9 L D MCV 81.1 MCH 25.3 L MCHC 31.3 L RDW 18.9 H D Plt Count 422 D MPV 8.5 Neutrophils % No Result Required. Lymphocytes % No Result Required. PT with INR INR Sodium 117 L* D Potassium 7.4 H* D Chloride 89 L D Carbon Dioxide 17 L Anion Gap 11 BUN 124 H* D Creatinine 7.7 H* D Creat Clearance w eGFR 7.20 Random Glucose 323 H* D Lactic Acid 1.5 Calcium 7.1 L Total Bilirubin 0.4 AST 12 L D ALT 14 D Alkaline Phosphatase 167 H Creatine Kinase 118 Troponin I < 0.02 Total Protein 6.2 L Albumin 1.7 L D Urine Color Urine Appearance Urine pH Ur Specific [place] Urine Protein Urine Glucose (UA) Urine Ketones Urine Blood Urine Nitrite Urine Bilirubin Urine Urobilinogen Ur Epithelial Cells Urine Mucus Blood Type Antibody Screen 03/18/17 03/18/17 03/18/17 17:50 17:50 17:50 WBC RBC Hgb Hct MCV MCH MCHC RDW Plt Count MPV Neutrophils % Lymphocytes % PT with INR 12.90 H INR 1.14 Sodium 122 L* Potassium 5.2 H D Chloride 92 L Carbon Dioxide 16 L Anion Gap 14 BUN 123 H* Creatinine 7.8 H* Creat Clearance w eGFR Random Glucose 244 H D Lactic Acid Calcium 7.5 L Total Bilirubin AST ALT Alkaline Phosphatase Creatine Kinase Troponin I Total Protein Albumin Urine Color Urine Appearance Urine pH Ur Specific [place] Urine Protein Urine Glucose (UA) Urine Ketones Urine Blood Urine Nitrite Urine Bilirubin Urine Urobilinogen Ur Epithelial Cells Urine Mucus Blood Type B POSITIVE Antibody Screen Negative 03/18/17 17:53 WBC RBC Hgb Hct MCV MCH MCHC RDW Plt Count MPV Neutrophils % Lymphocytes % PT with INR INR Sodium Potassium Chloride Carbon Dioxide Anion Gap BUN Creatinine Creat Clearance w eGFR Random Glucose Lactic Acid Calcium Total Bilirubin AST ALT Alkaline Phosphatase Creatine Kinase Troponin I Total Protein Albumin Urine Color Yellow Urine Appearance Slcloudy Urine pH 5.0 Ur Specific [place] 1.014 Urine Protein 2+ H Urine Glucose (UA) 1+ H Urine Ketones Negative Urine Blood Negative Urine Nitrite Negative Urine Bilirubin Negative Urine Urobilinogen Negative Ur Epithelial Cells Rare Urine Mucus Rare Blood Type Antibody Screen Active Medications Generic Name Dose Route Start Last Admin Trade Name Kashifq PRN Reason Stop Dose Admin Sodium Chloride 1,000 mls @ 150 mls/hr 03/18/17 18:00 Normal Saline - IV ASDIR IGGY Sodium Bicarbonate 1,300 mg 03/18/17 18:00 Sodium Bicarbonate - PO BID IGGY Active Medications Generic Name Dose Route Start Last Admin Trade Name Freq PRN Reason Stop Dose Admin Albuterol Sulfate 1 amp 03/18/17 20:12 Ventolin 0.083% Nebulizer Soln - NEB Q4H PRN SHORT OF BREATH/WHEEZING Amlodipine Besylate 10 mg 03/19/17 10:00 Norvasc - PO DAILY IGGY Doxazosin Mesylate 4 mg 03/19/17 10:00 Cardura - PO DAILY IGGY Duloxetine HCl 30 mg 03/19/17 10:00 Cymbalta - PO DAILY IGGY Folic Acid 1 mg 03/19/17 10:00 Folic Acid - PO DAILY IGGY Sodium Chloride 1,000 mls @ 150 mls/hr 03/18/17 18:00 Normal Saline - IV ASDIR IGGY Metoprolol Tartrate 50 mg 03/18/17 22:00 Lopressor - PO BID IGGY Mirtazapine 30 mg 03/18/17 22:00 Remeron - PO HS IGGY Non-Formulary Medication 300 mg 03/18/17 22:00 Trazodone Hcl [Trazodone Hcl] PO HS IGGY Sodium Bicarbonate 1,300 mg 03/18/17 18:00 Sodium Bicarbonate - PO BID IGGY cc 60 min
[2017-03-18] MEDS ORDERED: ALBUTEROL SO4 0.083% IH SOL 2.5 MG/3 ML VIAL.NEB. NEB PRN (20:12)
--- NOTE | 2017-03-18 21:02 | PN ---
Progress Note (short form) - Note Progress Note: Consult dictated. Patient well known to this examiner presented to the ED with multiple foci of abscesses of the left foot. Bedside incision and drainage performed but tracking proceeds at least 10 cm proximally up the leg. Patient will need at the very least a left transtibial resection (BKA) Spoke with Dr. Al Daly and referred patient to him for such procedure. In the meantime patient has broken down on the right foot and will need f/u on that.
[2017-03-18 21:07] LABS: TOTAL CELLS COUNTED 100
[2017-03-18 21:10] LABS: HYPOCHROMIA 1+; POLYCHROMASIA 1+
[2017-03-18 21:11] LABS: PLATELET ESTIMATE ADEQUATE
--- NOTE | 2017-03-18 21:50 | CONSULT ---
Consult Consult Specialty:: Pulm/ Critical Care Referred by:: Jomar Boyce Reason for Consultation:: hyperkalemia, hyponatremia, sepsis - History of Present Illness Chief Complaint: s/p fall History of Present Illness: 61 y/o man with history of CKD 4 (baseline creat 2.8), HTN, IDDM, depression and PVD s/p great toe amputation and L TMA who presented post syncopal event. 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 He recalls coming to on the ground on his left side. Bystanders called 911 and he was transported to [facility] ED. At baseline pt uses a cane however has felt more off balance this week and has been using a walker which he was not suing today. He endorsed recent increase in drainage from L foot ulcer as well as odor but denied fevers or pain. He denied any dizziness, chest pain, visual changes, n/v or slurred speech preceding the event. After the fall he complained of pain to the back of his head, neck and left ribs. Pt denied being on blood thinners or h/o seizures. Of note, pt had similar syncopal episode earlier this year requiring ICU admission in the setting of hgb 3 and sepsis 2/ 2 foot osteomyelitis. In the ED, pt was alert but relatively hypotensive 90s/60s. He underwent CT head and spine which were negative for fracture or acute pathology as well as rib series and hips films and received local wound care of his L tenriism abrasion (tetanus up to date). Labs were notable for hyperkalemia (7.4) and hyponatremia (117), as well as elevated BUN/Creat (124/7.7) and leukocytosis (21 ). EKG showed 1st degree AV block. He was seen by nephrology who recommended rehydration with NS, and treatment of hyperkalemia medically with HD if needed. His wound was drained and he was given zosyn and vanco and transferred to the ICU for further monitoring. Current Medications Active Medications Active Medications Albuterol Sulfate (Ventolin 0.083% Nebulizer Soln -) 1 amp NEB Q4H PRN PRN Reason: SHORT OF BREATH/WHEEZING Amlodipine Besylate (Norvasc -) 10 mg PO DAILY [facility] Doxazosin Mesylate (Cardura -) 4 mg PO DAILY [facility] Duloxetine HCl (Cymbalta -) 30 mg PO DAILY [facility] Folic Acid (Folic Acid -) 1 mg PO DAILY [facility] Heparin Sodium (Porcine) (Heparin -) 5,000 unit SQ BID [facility] Last Admin: 03/18/17 23:59 Dose: 5,000 unit Sodium Chloride (Normal Saline -) 1,000 mls @ 150 mls/hr IV ASDIR [facility] Last Admin: 03/18/17 22:30 Dose: 150 mls/hr Insulin Human Regular 100 (units/ Sodium Chloride) 100 mls @ 8.17 mls/hr IVPB TITR IGGY; 0.1 UNITS/KG/HR PRN Reason: Protocol Insulin Aspart (Novolog Vial Sliding Scale -) 1 vial SQ ACHS [facility] PRN Reason: Protocol Last Admin: 03/18/17 23:53 Dose: 12 units Metoprolol Tartrate (Lopressor -) 50 mg PO BID [facility] Last Admin: 03/18/17 23:58 Dose: 50 mg Mirtazapine (Remeron -) 30 mg PO HS [facility] Last Admin: 03/18/17 23:59 Dose: 30 mg Piperacillin/Tazobactam/Dextrose (Zosyn 2.25gm Ivpb (Premix)) 2.25 gm IVPB Q8H- IV [facility] Sodium Bicarbonate (Sodium Bicarbonate -) 1,300 mg PO BID [facility] Last Admin: 03/19/17 01:36 Dose: Not Given Trazodone HCl (Desyrel -) 300 mg PO [facility] Last Admin: 03/19/17 00:00 Dose: 300 mg - History Source History Provided By: Patient, Medical Record - Past Medical History 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: Peripheral Neuropathy Cardio/Vascular: Yes: HTN Gastrointestinal: Yes: GERD Renal/: Yes: Renal Inusuff Heme/Onc: Yes: Anemia Infectious Disease: Yes: Other (osteomyelitis) Psych: Yes: Depression Musculoskeletal: Yes: Other (chronic pain) Endocrine: Yes: Diabetes Mellitus - Past Surgical History Past Surgical History: Yes: Amputation (transmetatarsal of Left foot) - Alcohol/Substance Use Hx Alcohol Use: No Number of Drinks Daily: 2 (weekends) - Smoking History Smoking history: Current every day smoker Have you smoked in the past 12 months: No Aproximately how many cigarettes per day: 1 - Social History Usual Living Arrangement: Correction ADL: Support Services History of Recent Travel: No Home Medications - Allergies Allergies/Adverse Reactions: Allergies Allergy/AdvReac Type Severity Reaction Status Date / Time shellfish derived Allergy Severe "HIVES" Verified 03/18/17 14:03 No Known Drug Allergies Allergy Verified 03/18/17 14:03 - Home Medications Home Medications: Ambulatory Orders Amlodipine Besylate [Norvasc -] 10 mg PO DAILY 11/07/14 Ascorbate Calcium [Vitamin C] 500 mg PO DAILY 11/07/14 Ferrous Sulfate [Feosol] 325 mg PO DAILY 11/07/14 Folic Acid - 1 mg PO DAILY 11/07/14 Trazodone HCl 300 mg PO HS 11/07/14 Mirtazapine [Remeron -] 30 mg PO HS 08/19/16 Albuterol 0.083% Nebulizer Coretta [Ventolin 0.083% Nebulizer Soln -] 1 amp NEB Q4H PRN #0 amp 09/12/16 Metoprolol Tartrate [Lopressor -] 50 mg PO BID tablet 09/12/16 Furosemide [Lasix -] 80 mg PO DAILY #30 tablet 10/24/16 Sodium Bicarbonate 325 mg PO BID 11/21/16 Oxycodone HCl [Roxicodone -] 5 mg PO QID #120 tablet MDD 4 03/07/17 Doxazosin Mesylate [Cardura] 4 mg PO DAILY 03/18/17 Duloxetine HCl 30 mg PO DAILY 03/18/17 Ergocalciferol (Vitamin D2) [Vitamin D2] 50,000 unit PO WEEKLY 03/18/17 Insulin (Levemir) [Levemir Flexpen -] 15 units SQ HS 03/18/17 Insulin Aspart [Novolog] 0 unit SQ ASDIR 03/18/17 Family Disease History - Family Disease History Family Disease History: Diabetes: Mother Review of Systems - Review of Systems Constitutional: denies: Fever Cardiovascular: denies: Chest Pain, Shortness of Breath Respiratory: denies: Cough, SOB Musculoskeletal: reports: Muscle Weakness. denies: Extremity Pain Integumentary: reports: Wound (with drainage) Neurological: reports: Syncope Psychiatric: reports: Depression Physical Exam Vital Signs: Vital Signs Temperature 97.0 F L 03/18/17 13:30 Pulse Rate 70 03/18/17 18:58 Respiratory Rate 18 03/18/17 18:36 Blood Pressure 95/52 03/18/17 18:58 O2 Sat by Pulse Oximetry (%) 100 03/18/17 18:58 Eyes: Yes: PERRL HENT: Yes: Other (L temporal abrasion) Cardiovascular: Yes: Regular Rate and Rhythm Respiratory: Yes: CTA Bilaterally Gastrointestinal: Yes: Normal Bowel Sounds, Soft. No: Distention, Tenderness Extremities: Yes: WNL (UE's 2+ pulses), Amputation (R great toe, L TMA), Cool ( LE's), Other (L foot dressing with drainage, malodorous) Edema: No Peripheral Pulses WNL: Yes (2+ UE pulses, 1+ LE pulses) Wound/Incision: Yes: Draining (L foot ulcer dressed with malodorous drainage) Neurological: Yes: Alert, Oriented, Cran Nerves II-XII Intact, Numbness (c/o some numbness to left face post fall) Labs: CBC, BMP 03/18/17 14:45 03/18/17 17:50 Imaging - Results Chest X-ray: Report Reviewed, Image Reviewed Cat Scan: Report Reviewed Ultrasound: Report Reviewed EKG: Image Reviewed Problem List - Problems (1) ARF (acute renal failure) Code(s): N17.9 - ACUTE KIDNEY FAILURE, UNSPECIFIED Qualifiers: Acute renal failure type: unspecified Qualified Code(s): N17.9 - Acute kidney failure, unspecified (2) Hyperkalemia Code(s): E87.5 - HYPERKALEMIA (3) Hyponatremia Code(s): E87.1 - HYPO-OSMOLALITY AND HYPONATREMIA (4) Syncope Code(s): R55 - SYNCOPE AND COLLAPSE Qualifiers: Syncope type: unspecified Qualified Code(s): R55 - Syncope and collapse (5) Anemia Code(s): D64.9 - ANEMIA, UNSPECIFIED Qualifiers: Anemia type: due to chronic kidney disease (6) Depression Code(s): F32.9 - MAJOR DEPRESSIVE DISORDER, SINGLE EPISODE, UNSPECIFIED (7) 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, insulin dependent (IDDM), controlled Code(s): E11.9 - TYPE 2 DIABETES MELLITUS WITHOUT COMPLICATIONS; 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.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 (8) Diabetic neuropathy Code(s): E11.40 - TYPE 2 DIABETES MELLITUS WITH DIABETIC NEUROPATHY, UNSP Qualifiers: 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 type: type 2 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 complication detail: diabetic polyneuropathy Qualified Code(s): E11.42 - Type 2 diabetes mellitus with diabetic polyneuropathy (9) Foot infection Code(s): L08.9 - LOCAL INFECTION OF THE SKIN AND SUBCUTANEOUS TISSUE, UNSP Assessment/Plan 61 y/o man with h/o CKD 4, HTN, IDDM, depression and PVD s/p great toe amputation and L TMA who presented post syncopal event, found to be in FROYLAN on CKD with hyperkalemia and hyponatremia as well as concern for possible recurrent sepsis from L foot source. Renal: CKD 4 now presenting with superimposed FROYLAN with hyperkalemia and hyponatremia ? in setting of dehydration (lasix + sepsis) vs bactrim -plan per renal consult -r/o obstruction with renal US -f/u urine lytes -medically manage pts hyperkalemia - insulin, dextrose, calcium, kayexalate -trend EKG and BMP as needed -HD if unable to medically manage electrolytes -IVF for possible hypovolemic hyponatremia -PO sodium bicarb -trend Na - slow NS infusion if Na correcting too rapidly given unknown duration of hyponatremia ID: h/o osteomyelitis now presents with L foot concerning for gangrene and leukocytosis, relative hypotension consistent with sepsis -continue lana riccin -ID consult in am -f/u wound cultures and [place] cxl -consider vascular/ surgical consult CV: HTN at baseline, presented with relative hypotension in setting of presumed sepsis now hemodyanmically stable -hemodynamic monitoring -continue home antihypertensives - hold as needed if appears septic -fluid resuscitation Endo: IDDM with uptrending BG and AG -fingersticks -initiate insulin gtt - transition to home regimen when able Neuro: s/p syncopal event with negative CT head/ spine; at risk for altered mental status in setting of electrolyte disarray (uremia and hyponatremia) -monitor mental status in setting of electrolyte disarray and in setting of Na correction -pain control as needed Heme: anemia - likely related to renal failure -trend CBC -transfuse as indicated Pulm: no active issues -monitor respiratory status GI: no active issues -regular diabetic diet -H2B PPX: -SQ heparin -PPI - indication FROYLAN on CKD CODE: FULL Peggy Wright ACNP CCT: 35 mins
[2017-03-18] MEDS ORDERED: PATIENT'S OWN MEDICATION (NON-FORMULARY) (Trazodone Hcl [Trazodone Hcl] 300 MG) PO SCH (22:00)
[2017-03-18 22:02] LABS: BASOPHIL 0.2 % (0-2.0); EOSINOPHIL 0.2 % (0-4.5); MCH 25.5 pg (25.7-33.7); MCHC 31.6 g/dl (32.0-35.9); MEAN CELL VOLUME 80.5 fl (80-96); MEAN PLT VOLUME 8.5 fl (7.5-11.1); NEUTROPHILS 91.8 % (42.8-82.8); PLATELET COUNT 438 K/MM3 (134-434); RDW 18.3 % (11.9-15.9); WHITE BLOOD COUNT 17.8 K/mm3 (4.0-10.0)
--- NOTE | 2017-03-18 22:09 | CONS ---
DATE OF CONSULTATION: 03/18/2017 PRESENTING PROBLEM: Patient with a long history of chronic osteomyelitis and multiple diabetic foot wounds presented to the emergency department after suffering from syncope on his way to be attended at the [facility] for a chronic osteomyelitis of the left foot and diabetic foot wounds. HISTORY OF PRESENT ILLNESS: A 4+-year history of diabetic foot wounds, chronic osteomyelitis. Patient has had a transmetatarsal resection on the left foot performed by this examiner. Patient had a recent magnetic resonance imaging at this institution which showed improving hyperemia of all the osseous structures of the left foot and lower leg. Patient has been on multiple courses of long-term antimicrobial chemotherapy and was being evaluated for further chemotherapy for the chronic streptococcus group B osseous infection recently diagnosed via outpatient bone biopsy at [facility]. Presented last week Saturday at [facility] with a glucose of 500 + mg/dl and had HBO (hyperbarics)cancelled. Referred to the [facility] ED- patient refused stating he would present to this institution's ED but never did despite numerous telephone calls from me urging him to do so. SIGNIFICANT PAST AND PRESENT MEDICAL HISTORY: Significant for major depressive disorder, diabetic peripheral neuropathy, gastroesophageal reflux disease, essential hypertension, diabetes mellitus, hyperglycemia, chronic obstructive pulmonary disease with emphysema, hyperkalemia, severe anemia, hyponatremia. SURGICAL HISTORY: Multiple foot surgeries including a left transmetatarsal amputation, incision and drainages, osseous biopsy, wound debridements, right partial foot amputation. ACTIVE MEDICATIONS: Include albuterol sulfate, amlodipine besylate, doxazosin mesylate, duloxetine, folic acid, heparin, insulin, metoprolol tartrate, mirtazapine, trazodone, sodium bicarbonate, ferrous sulfate. ALLERGIC HISTORY: No known drug allergies. Allergy to SHELLFISH-DERIVED IODINE. SOCIAL HISTORY: Patient does not use alcohol. Patient does admit to occasional cocaine use and has pharmaceutically provided marijuana. PERTINENT LABORATORY FINDINGS: Significant leukocytosis of 21.4. Significant anemia with RBCs of 3.07, hemoglobin of 7.8, hematocrit of 24.9. Patient is hyperkalemic, hyponatremic, and with an elevated BUN and creatinine and significantly hyperglycemic of 323 mg/dL. PHYSICAL EXAMINATION: Patient presented to the ED. Examination reveals that the left foot is bandaged, significant peripheral edema. Removal of the bandage revealed several foci of purulence including the anterior foot/ankle with the tibialis anterior tendon clearly visible. On the medial aspect of the right foot, there is significant desquamation with blebs of pus exuding through the foot. On the plantar surface of the left foot where patient had a longstanding ulceration, there is marked fibrous deposition with another focus of pus. Pedal pulses are nonpalpable, but patient has good peripheral arterial flow. On the contralateral foot, patient is presenting with a neurotrophic ulceration submetatarsal head 5. This is a new finding as patient said this occurred immediately after an outpatient osseous biopsy of the left foot, and patient did not report that to this examiner. IMPRESSION: 1. Diabetic foot ulceration. 2. Chronic osteomyelitis. 3. Multiple foci of abscess. PLAN: A bedside incision and drainage of multiple areas of the left foot was performed. During the procedure, it was noted that purulence tracks at least 10 cm proximally up the left leg. this examiner then referred patient to Dr. Al Daly of the surgical service as it is clear that patient needs at least a transtibial (below-knee amputation) resection, if not an above-knee amputation. We will follow patient for the contralateral or right foot as patient now has an ulceration on the right foot. NIURKA ARMSTRONG DPM RT/[id number] MTDD
[2017-03-18 22:18] LABS: URINE LEUK ESTERASE TRACE (NEGATIVE)
[2017-03-18] MEDS: SODIUM CHLORIDE 1,000 ML IV SCH (22:30)
[2017-03-18 22:38] LABS: ANION GAP 13 (8-16); CALCIUM 7.1 mg/dL (8.5-10.1); CO2 19 mmol/L (21-32)
[2017-03-18 22:42] LABS: CREATININE 7.4 mg/dL (0.7-1.3)
[2017-03-18 22:47] LABS: GLUCOSE,RANDOM 382 mg/dL (74-106)
[2017-03-18] MEDS ORDERED: PIPERACILLIN/TAZOB 2.25 GM 2.25 GM in DEXTROSE 5%-WATER - 50 ML IVPB ONE (23:15)
[2017-03-18] MEDS: INSULIN SLIDING SCALE (NOVOLOG) 1 VIAL SQ SCH (23:53)
[2017-03-18] MEDS ORDERED: MIRTAZAPINE 15 MG TABLET (FP) ONE (23:57)
[2017-03-18] MEDS: METOPROLOL TARTRATE 25 MG TABLET (FP) PO SCH (23:58)
[2017-03-18] MEDS: SODIUM BICARBONATE 650 MG TABLET PO SCH (23:59)
[2017-03-18] MEDS: HEPARIN NA (PORCINE) 5,000 UNITS/ML 1ML VIAL SQ SCH (23:59)
[2017-03-18] MEDS: MIRTAZAPINE 30 MG TABLET (FP) PO SCH (23:59)
[2017-03-19] MEDS: SODIUM BICARBONATE 650 MG TABLET PO SCH ×3 (01:36→21:18)
[2017-03-19] MEDS ORDERED: PIPERACILLIN/TAZOB 2.25 GM/50 ML PREMIX BAG IVPB SCH (02:00)
[2017-03-19 03:34] LABS: ANION GAP 11 (8-16); CO2 20 mmol/L (21-32); CREATININE 7.4 mg/dL (0.7-1.3)
[2017-03-19 03:36] LABS: GLUCOSE,RANDOM 438 mg/dL (74-106)
[2017-03-19] MEDS ORDERED: PANTOPRAZOLE 40 MG TABLET (FP) PO ONE (05:57)
[2017-03-19] MEDS ORDERED: INSULIN REGULAR 100 UNITS in SODIUM CHLORIDE 99 ML IVPB SCH (06:00)
[2017-03-19] MEDS ORDERED: INSULIN (NOVOLOG) ASPART 100 UNITS/ML 10ML VIAL ONE ×2 (06:38→21:01)
[2017-03-19] MEDS: SODIUM CHLORIDE 1,000 ML IV SCH ×3 (06:47→19:00)
[2017-03-19] MEDS: INSULIN SLIDING SCALE (NOVOLOG) 1 VIAL SQ SCH ×4 (06:47→21:19)
[2017-03-19 06:54] LABS: BASOPHIL 0.5 % (0-2.0); EOSINOPHIL 0.2 % (0-4.5); MCH 25.8 pg (25.7-33.7); MCHC 31.9 g/dl (32.0-35.9); MEAN CELL VOLUME 80.8 fl (80-96); MEAN PLT VOLUME 8.8 fl (7.5-11.1); NEUTROPHILS 92.6 % (42.8-82.8); PLATELET COUNT 455 K/MM3 (134-434); RDW 18.6 % (11.9-15.9); WHITE BLOOD COUNT 14.5 K/mm3 (4.0-10.0)
[2017-03-19 07:10] LABS: ALBUMIN 1.5 g/dl (3.4-5.0); ANION GAP 13 (8-16); BILIRUBIN,TOTAL 0.5 mg/dL (0.2-1.0); CO2 17 mmol/L (21-32); PHOSPHOROUS 5.9 mg/dL (2.5-4.9); SGOT/AST 5 U/L (15-37); SGPT/ALT 12 U/L (12-78); TOT PROT 5.1 g/dl (6.4-8.2)
[2017-03-19 07:16] LABS: ALK PHOS 152 U/L (45-117); CREATININE 7.4 mg/dL (0.7-1.3)
--- NOTE | 2017-03-19 07:17 | OP ---
DATE OF OPERATION: February, DATE OF DICTATION: 03/18/2017 PROCEDURE PERFORMED: Incision and drainage of multiple foci of suppuration of the left foot. PREOPERATIVE DIAGNOSIS: Multiple deep subfascial abscesses of the left foot. POSTOPERATIVE DIAGNOSIS: Multiple deep subfascial abscesses of the left foot. SURGEON: Dr. Niurka Galvan ANESTHESIA: None given (the patient is insensate). CLINICAL INDICATIONS FOR THE PROCEDURE: Patient with a long history (>4 years) of multiple abscesses, diabetic foot ulcerations and chronic osteomyelitis, X 2 was being attended by this examiner initially at the [facility] and then then [facility]. The patient presented to the [facility] Care [facility] approximately 1 week ago and was unable to undergo hyperbaric oxygen treatment as his blood glucose exceeded 500 mg/dL. The patient was requested to present to the [facility] Emergency Department, but the patient refused, stating that he would go to the emergency department at this institution. The patient, however, failed to present to the emergency department at this institution, despite numerous telephone calls by this examiner urging him to do so. Discussed the case with his pain management physician, who also requested that the patient be attended at the emergency department. I was paged and was told that the patient was in this emergency department with an infected left foot. DESCRIPTION OF PROCEDURE: This procedure was performed bedside. After prepping the patient in the usual manner, attention was directed to the anterior surface of the left foot, where it was noted that there was a deep large ulceration. The tibialis anterior tendon was visible. An incision was made through the tendon, which revealed a deep abscess. It was noted that the tracking of the abscess proceeded approximate 10 cm proximally up the leg. Likewise, on the medial aspect of the foot, there was fluctuance. An incision was made to bone and more pus was evacuated. On the plantar surface of the foot, there was further fluctuance and another incision was made to bone and more pus was drained. It was estimated that approximately 20 mL of pus was drained, with probable further proximal collection of pus up the leg. Because of the severe nature of this and possible proximal residual abscess, at least a below-knee amputation is indicated. Dr. Al Daly was informed and consulted - see order. DR. NIURKA GALVAN RT/[id number] MTDD
[2017-03-19 07:42] LABS: GLUCOSE,RANDOM 393 mg/dL (74-106)
[2017-03-19 07:51] LABS: FERRITIN 1246.533 ng/ml (16.4-293.9)
--- NOTE | 2017-03-19 08:10 | SPA.PREOP ---
- PRE-OP NOTE Dx: Left TMA gangrene Planned Procedure: Guillotine amp vs. LLE BKA Surgeon: Al Daly Consent: To be obtained by surgeon after risks, benefits and alternatives explained. Last Vital Signs Temp Pulse Resp BP Pulse Ox 99 F 78 20 100/60 100 03/19/17 06:00 03/19/17 06:00 03/19/17 06:00 03/19/17 06:00 03/18/17 22:16 Lab Results WBC 14.5 K/mm3 (4.0-10.0) H 03/19/17 05:10 RBC 2.82 M/mm3 (4.00-5.60) L 03/19/17 05:10 Hgb 7.3 GM/dL (11.7-16.9) L 03/19/17 05:10 Hct 22.8 % (35.4-49) L 03/19/17 05:10 MCV 80.8 fl (80-96) 03/19/17 05:10 MCHC 31.9 g/dl (32.0-35.9) L 03/19/17 05:10 RDW 18.6 % (11.9-15.9) H 03/19/17 05:10 Plt Count 455 K/MM3 (134-434) H 03/19/17 05:10 Sodium 124 mmol/L (136-145) L* 03/19/17 05:10 Potassium 5.2 mmol/L (3.5-5.1) H 03/19/17 05:10 Chloride 94 mmol/L (98-107) L 03/19/17 05:10 Carbon Dioxide 17 mmol/L (21-32) L 03/19/17 05:10 Anion Gap 13 (8-16) 03/19/17 05:10 BUN 116 mg/dL (7-18) H* 03/19/17 05:10 Creatinine 7.4 mg/dL (0.7-1.3) H 03/19/17 05:10 Random Glucose 393 mg/dL (74-106) H* 03/19/17 05:10 Calcium 7.0 mg/dL (8.5-10.1) L 03/19/17 05:10 Blood Type B POSITIVE 03/18/17 17:50 Antibody Screen Negative 03/18/17 17:50 INR 1.14 (0.82-1.09) 03/18/17 17:50 - ASSESSMENT/PLAN Problem List - Problems (1) Gangrene of left foot Assessment/Plan: 1. Make NPO after midnight except po meds 2. GI/DVT PPX 3. Medical optimization / clearance 4. 2 PRB on hold for OR Code(s): I96 - GANGRENE, NOT ELSEWHERE CLASSIFIED Visit type - Case Type Case Type: ED Admission - Emergency Emergency Visit: Yes ED Registration Date: 03/18/17 Care time: The patient presented to the Emergency Department on the above date and was hospitalized for further evaluation of their emergent condition. - New patient This patient is new to me today: Yes Date on this admission: 03/19/17
[2017-03-19] MEDS ORDERED: PT OWN MED DRAWER 7, Y5N ONE ×3 (08:43→21:04)
[2017-03-19] MEDS: DOXAZOSIN MESYLATE 4 MG TABLET PO SCH (09:03)
[2017-03-19] MEDS: amLODIPine BESYLATE 10 MG TABLET (FP) PO SCH (09:04)
[2017-03-19] MEDS: METOPROLOL TARTRATE 25 MG TABLET (FP) PO SCH ×2 (09:04→21:18)
[2017-03-19] MEDS: HEPARIN NA (PORCINE) 5,000 UNITS/ML 1ML VIAL SQ SCH ×3 (09:07→21:29)
[2017-03-19] MEDS: FOLIC ACID 1 MG TABLET (FP) PO SCH (09:13)
[2017-03-19] MEDS: DULoxetine HCL 30 MG CAPSULE.DR (FP) PO SCH (09:13)
[2017-03-19] MEDS ORDERED: SODIUM CHLORIDE 500 ML IV STA (09:30)
--- NOTE | 2017-03-19 09:49 | PN ---
Progress Note (short form) - Note Progress Note: Renal Follow up for FROYLAN on CKD Pt seen and examined in the ICU awake and alert s/p PRBC transfusion pt is oliguric tobias in place pt reports muscle weakness no N/V appetite is preserved Vital Signs Temperature 100.9 F H 03/19/17 08:00 Pulse Rate 74 03/19/17 09:00 Respiratory Rate 19 03/19/17 09:00 Blood Pressure 81/53 03/19/17 09:00 O2 Sat by Pulse Oximetry (%) 100 03/18/17 22:16 Intake & Output 03/16/17 03/17/17 03/18/17 03/19/17 23:59 23:59 23:59 23:59 Intake Total 600 1561 Output Total 200 200 Balance 400 1361 Weight 81.703 kg NAD awake and alert RRR Dec Bs at lung bases, no rales soft NT/ND Trace to 1+ Le edema left foot in dressing, bloody CBC, BMP 03/19/17 05:10 03/19/17 05:10 Current Medications Albuterol Sulfate (Ventolin 0.083% Nebulizer Soln -) 1 amp NEB Q4H PRN PRN Reason: SHORT OF BREATH/WHEEZING Amlodipine Besylate (Norvasc -) 10 mg PO DAILY [facility] Last Admin: 03/19/17 09:04 Dose: Not Given Doxazosin Mesylate (Cardura -) 4 mg PO DAILY [facility] Last Admin: 03/19/17 09:03 Dose: Not Given Duloxetine HCl (Cymbalta -) 30 mg PO DAILY [facility] Last Admin: 03/19/17 09:13 Dose: 30 mg Folic Acid (Folic Acid -) 1 mg PO DAILY [facility] Last Admin: 03/19/17 09:13 Dose: 1 mg Heparin Sodium (Porcine) (Heparin -) 5,000 unit SQ BID [facility] Last Admin: 03/19/17 09:07 Dose: 5,000 unit Sodium Chloride (Normal Saline -) 1,000 mls @ 150 mls/hr IV ASDIR [facility] Last Admin: 03/19/17 06:47 Dose: 150 mls/hr Insulin Human Regular 100 (units/ Sodium Chloride) 100 mls @ 8.17 mls/hr IVPB TITR IGGY; 0.1 UNITS/KG/HR PRN Reason: Protocol Last Admin: 03/19/17 06:26 Dose: 0.1 units/kg/hr, 8.17 mls/hr Sodium Chloride (Normal Saline -) 500 mls @ 500 mls/hr IV ASDIR STA Stop: 03/19/17 10:29 Metoprolol Tartrate (Lopressor -) 50 mg PO BID [facility] Last Admin: 03/19/17 09:04 Dose: Not Given Mirtazapine (Remeron -) 30 mg PO HS [facility] Last Admin: 03/18/17 23:59 Dose: 30 mg Piperacillin/Tazobactam/Dextrose (Zosyn 2.25gm Ivpb (Premix)) 2.25 gm IVPB Q8H- IV [facility] Sodium Bicarbonate (Sodium Bicarbonate -) 1,300 mg PO BID [facility] Last Admin: 03/19/17 09:07 Dose: 1,300 mg Trazodone HCl (Desyrel -) 300 mg PO HS [facility] Last Admin: 03/19/17 00:00 Dose: 300 mg 61 year old gentleman with PMhx of CKD stage 4 (baseline Cr 2.8), Hypertension , DM, PVD, Depression who presented with syncope and found to have acute on chronic renal failure with hyperkalemia and hyponatremia. #Acute Renal Failure in setting of known CKD with Hyperkalemia Etiology of renal failure unclear but differential includes volume depletion in setting fo sepsis/lasix vs. obstruction vs. ATN vs AIN (bactrium) Renal US w/o obstruction but with increased echogenicity consistent with CKD Pt remains oliguric at the present time BP still low, IVF to keep MAP > 65 given lack of recovery and signs of uremia (muscle weakness, lethargy) will plan to start dialysis also will be important to optimize pt prior to planned surgical procedure tomorrow will need temporary dialysis catheter placement Dose all meds for CrCl less then 10 give DDVAP prior to catheter placement #Hyponatremia, likely hypovolemic Serum Na improved continue isotonic saline #Leukocytosis/Sepsis Keep MAP > 65 s/p Vanco and Zosyn in the ED f/u cultures Vascular Sx eval for foot #Acute on Chronic anemia Transfuse PRBC to keep Hgb > 8 will give additional unit with Hd today Thank you Will follow Miguel Jansen DO Problem List - Problems (1) Hyponatremia Code(s): E87.1 - HYPO-OSMOLALITY AND HYPONATREMIA (2) ARF (acute renal failure) Code(s): N17.9 - ACUTE KIDNEY FAILURE, UNSPECIFIED Qualifiers: Acute renal failure type: unspecified Qualified Code(s): N17.9 - Acute kidney failure, unspecified (3) Hyperkalemia Code(s): E87.5 - HYPERKALEMIA (4) Syncope Code(s): R55 - SYNCOPE AND COLLAPSE Qualifiers: Syncope type: unspecified Qualified Code(s): R55 - Syncope and collapse (5) FROYLAN (acute kidney injury) Code(s): N17.9 - ACUTE KIDNEY FAILURE, UNSPECIFIED
[2017-03-19 10:09] LABS: ARTERIAL BLD GAS O2 SATURATION 91.3 % (90-98.9); ARTERIAL BLOOD GAS BASE EXCESS -9.2 meq/l (-2-2); ARTERIAL BLOOD GAS HCO3 15.8 meq/L (22-26); ARTERIAL BLOOD GAS PO2 70.1 mmHg (80-100); ARTERIAL BLOOD GAS pH 7.31 (7.35-7.45)
[2017-03-19 10:17] LABS: ALLENS TEST POSITIVE; ART PUNCT SITE LEFT RADIAL
[2017-03-19 10:19] LABS: PT'S TEMP 100; PT. ON O2? NO
[2017-03-19] MEDS ORDERED: INSULIN SLIDING SCALE (NOVOLOG) 1 VIAL SQ SCH (11:45)
[2017-03-19] MEDS ORDERED: DESMOPRESSIN ACETATE 4 MCG/ML AMP IVPB ONE (11:45)
--- NOTE | 2017-03-19 12:04 | PN ---
Teaching Attending Note Name of Resident: Natan Garcia ATTENDING PHYSICIAN STATEMENT I saw and evaluated the patient. I reviewed the resident's note and discussed the case with the resident. I agree with the resident's findings and plan as documented. SUBJECTIVE: Pt seen and examined in the ICU. Somnolent but arousable, oriented. Blood pressures low but more normothermic. On insulin gtt. OBJECTIVE: Last Vital Signs Temp Pulse Resp BP Pulse Ox 99.2 F 71 16 83/54 99 03/19/17 09:55 03/19/17 11:00 03/19/17 11:00 03/19/17 11:00 03/19/17 09:00 Intake & Output 03/16/17 03/17/17 03/18/17 03/19/17 23:59 23:59 23:59 23:59 Intake Total 600 1561 Output Total 200 200 Balance 400 1361 Weight 180 lb 2 oz Gen: somnolent but arousable Heart: RRR Lung: decreased breath sounds at the bases Abd: soft, nontender Ext: no edema CBC, BMP 03/19/17 05:10 03/19/17 05:10 Active Medications Albuterol Sulfate (Ventolin 0.083% Nebulizer Soln -) 1 amp NEB Q4H PRN PRN Reason: SHORT OF BREATH/WHEEZING Amlodipine Besylate (Norvasc -) 10 mg PO DAILY [facility] Last Admin: 03/19/17 09:04 Dose: Not Given Doxazosin Mesylate (Cardura -) 4 mg PO DAILY [facility] Last Admin: 03/19/17 09:03 Dose: Not Given Duloxetine HCl (Cymbalta -) 30 mg PO DAILY [facility] Last Admin: 03/19/17 09:13 Dose: 30 mg Epoetin Joe (Procrit -) 20,000 unit IVPUSH ONCE ONE Stop: 03/19/17 09:55 Folic Acid (Folic Acid -) 1 mg PO DAILY [facility] Last Admin: 03/19/17 09:13 Dose: 1 mg Heparin Sodium (Porcine) (Heparin -) 5,000 unit SQ BID [facility] Last Admin: 03/19/17 09:07 Dose: 5,000 unit Sodium Chloride (Normal Saline -) 1,000 mls @ 150 mls/hr IV ASDIR [facility] Last Admin: 03/19/17 11:40 Dose: 150 mls/hr Insulin Aspart (Novolog Vial Sliding Scale -) 1 vial SQ ACHS [facility] PRN Reason: Protocol Metoprolol Tartrate (Lopressor -) 50 mg PO BID [facility] Last Admin: 03/19/17 09:04 Dose: Not Given Mirtazapine (Remeron -) 30 mg PO HS [facility] Last Admin: 03/18/17 23:59 Dose: 30 mg Piperacillin/Tazobactam/Dextrose (Zosyn 2.25gm Ivpb (Premix)) 2.25 gm IVPB Q8H- IV [facility] Sodium Bicarbonate (Sodium Bicarbonate -) 1,300 mg PO BID [facility] Last Admin: 03/19/17 09:07 Dose: 1,300 mg Trazodone HCl (Desyrel -) 300 mg PO [facility] Last Admin: 03/19/17 00:00 Dose: 300 mg ASSESSMENT AND PLAN: Left Foot Gangrene Septic Shock Acute on Chronic Renal Failure Hyperkalemia Hyponatremia Anemia DM - IV antibiotics per ID - f/u cultures - monitor H/H - will place dialysis catheter - transfuse with HD - dDAVP - monitor lytes - start long acting insulin - d/c insulin gtt - IVF resuscitation - start levophed if MAP <65 - monitor urine output, creatinine - for R BKA - DVT prophylaxis - continue ICU monitoring critical care time spent in reviewing chart, evaluating patient and formulating plan 35 min
[2017-03-19] MEDS ORDERED: MIDAZOLAM HCL 5 MG/1 ML Single Dose Vial ONE (12:52)
[2017-03-19] MEDS ORDERED: MIDAZOLAM HCL 2 MG/2 ML SINGLE DOSE VIAL IVPUSH ONE (13:05)
--- NOTE | 2017-03-19 13:51 | PROC ---
<Natan Garcia - Last Filed: 03/19/17 13:50> Central Line Insertion Indication: Other (Dialysis access) Risks and Benefits Explained: Yes Consent on Chart: Yes Central Line: Dialysis Cath, Tri Lumen Anesthesia: 1% Lidocaine Sterile Technique: Yes Ultrasound Guided Assistance: Yes Position: Right Femoral Post Insertion: Yes: Other (Good venous blood return) Sterile Dressing Applied: Yes <Raymond Hernandez MD - Last Filed: 03/19/17 13:54> Procedure Note Procedure: I supervised and was present during the entire procedure. Raymond Hernandez MD
--- NOTE | 2017-03-19 14:12 | PN ---
Physical Exam: SUBJECTIVE: The patient is a 61M with a PMH of CKD stage 4, HTN, DM, and PVD s/ p TMA who presented to the ED with headaches and a syncopal episode. The patient was found to be in septic shock and sent to the ICU. The patient had no acute events prior to my examination. The patient's complaints were that he was weakness. Denies fever, chills, nausea, vomiting, CP , SOB. OBJECTIVE: Vital Signs Period Temp Pulse Resp BP Sys/Gutierrez Pulse Ox Last 24 Hr 93.1 F-100.1 F 61-110 15-20 81-119/52-75 99-100 GENERAL: The patient is awake, alert, and fully oriented, in no acute distress. HEAD: Normal with no signs of trauma. NECK: Trachea midline, full range of motion, supple. LUNGS: Breath sounds equal, clear to auscultation bilaterally, no wheezes, no crackles, no accessory muscle use. HEART: Regular rate and rhythm, S1, S2 without murmur, rub or gallop. ABDOMEN: Soft, nontender, nondistended, normoactive bowel sounds, no guarding, no rebound, no hepatosplenomegaly, no masses. EXTREMITIES: LLE amputation over L foot, cleaned and wrapped. NEUROLOGICAL: Cranial nerves II through XII grossly intact. Normal speech, gait not observed. PSYCH: Normal mood, normal affect. SKIN: Warm, dry, normal turgor, no rashes or lesions noted Laboratory Results - last 24 hr 03/18/17 03/18/17 03/18/17 14:45 14:45 17:00 WBC 21.4 H D RBC 3.07 L D Hgb 7.8 L D Hct 24.9 L D MCV 81.1 MCH 25.3 L MCHC 31.3 L RDW 18.9 H D Plt Count 422 D MPV 8.5 Total Counted 100 Neutrophils % No Result Required. Neutrophils % (Manual) 85.0 H Band Neutrophils % 4.0 Lymphocytes % No Result Required. Lymphocytes % (Manual) 4.0 L Monocytes % Monocytes % (Manual) 6 Eosinophils % Eosinophils % (Manual) 1.0 Basophils % Hypochromia 1+ Platelet Estimate Adequate Polychromasia 1+ PT with INR INR Puncture Site Patient Temperature ABG pH ABG pCO2 at Pt Temp ABG pO2 at Pt Temp ABG HCO3 ABG O2 Sat (Measured) ABG O2 Content ABG Base Excess Beau Test Oxygen Flow Rate Sodium 117 L* D Potassium 7.4 H* D Chloride 89 L D Carbon Dioxide 17 L Anion Gap 11 BUN 124 H* D Creatinine 7.7 H* D Creat Clearance w eGFR 7.20 POC Glucometer Random Glucose 323 H* D Serum Osmolality Lactic Acid 1.5 Calcium 7.1 L Phosphorus Magnesium Ferritin Total Bilirubin 0.4 AST 12 L D ALT 14 D Alkaline Phosphatase 167 H Creatine Kinase 118 Troponin I < 0.02 Total Protein 6.2 L Albumin 1.7 L D Urine Color Urine Appearance Urine pH Ur Specific [place] Urine Protein Urine Glucose (UA) Urine Ketones Urine Blood Urine Nitrite Urine Bilirubin Urine Urobilinogen Ur Leukocyte Esterase Urine RBC Ur Epithelial Cells Urine Mucus Urine Osmolality U Random Total Protein Ur Random Sodium Ur Random Urea Nitrogn Urine Creatinine Blood Type Antibody Screen Crossmatch 03/18/17 03/18/17 03/18/17 17:23 17:50 17:50 WBC RBC Hgb Hct MCV MCH MCHC RDW Plt Count MPV Total Counted Neutrophils % Neutrophils % (Manual) Band Neutrophils % Lymphocytes % Lymphocytes % (Manual) Monocytes % Monocytes % (Manual) Eosinophils % Eosinophils % (Manual) Basophils % Hypochromia Platelet Estimate Polychromasia PT with INR 12.90 H INR 1.14 Puncture Site Patient Temperature ABG pH ABG pCO2 at Pt Temp ABG pO2 at Pt Temp ABG HCO3 ABG O2 Sat (Measured) ABG O2 Content ABG Base Excess Beau Test Oxygen Flow Rate Sodium Potassium Chloride Carbon Dioxide Anion Gap BUN Creatinine Creat Clearance w eGFR POC Glucometer Random Glucose Serum Osmolality 311 H Lactic Acid Calcium Phosphorus Magnesium Ferritin Total Bilirubin AST ALT Alkaline Phosphatase Creatine Kinase Troponin I Total Protein Albumin Urine Color Urine Appearance Urine pH Ur Specific [place] Urine Protein Urine Glucose (UA) Urine Ketones Urine Blood Urine Nitrite Urine Bilirubin Urine Urobilinogen Ur Leukocyte Esterase Urine RBC Ur Epithelial Cells Urine Mucus Urine Osmolality U Random Total Protein Ur Random Sodium Ur Random Urea Nitrogn Urine Creatinine Blood Type B POSITIVE Antibody Screen Negative Crossmatch See Detail 03/18/17 03/18/17 03/18/17 17:50 17:53 21:45 WBC RBC Hgb Hct MCV MCH MCHC RDW Plt Count MPV Total Counted Neutrophils % Neutrophils % (Manual) Band Neutrophils % Lymphocytes % Lymphocytes % (Manual) Monocytes % Monocytes % (Manual) Eosinophils % Eosinophils % (Manual) Basophils % Hypochromia Platelet Estimate Polychromasia PT with INR INR Puncture Site Patient Temperature ABG pH ABG pCO2 at Pt Temp ABG pO2 at Pt Temp ABG HCO3 ABG O2 Sat (Measured) ABG O2 Content ABG Base Excess Beau Test Oxygen Flow Rate Sodium 122 L* 123 L* Potassium 5.2 H D 4.6 Chloride 92 L 91 L Carbon Dioxide 16 L 19 L Anion Gap 14 13 BUN 123 H* 123 H* Creatinine 7.8 H* 7.4 H Creat Clearance w eGFR POC Glucometer Random Glucose 244 H D 382 H* D Serum Osmolality Lactic Acid Calcium 7.5 L 7.1 L Phosphorus Magnesium Ferritin Total Bilirubin AST ALT Alkaline Phosphatase Creatine Kinase Troponin I Total Protein Albumin Urine Color Yellow Urine Appearance Slcloudy Urine pH 5.0 Ur Specific [place] 1.014 Urine Protein 2+ H Urine Glucose (UA) 1+ H Urine Ketones Negative Urine Blood Negative Urine Nitrite Negative Urine Bilirubin Negative Urine Urobilinogen Negative Ur Leukocyte Esterase Trace H Urine RBC No Result Required. Ur Epithelial Cells Rare Urine Mucus Rare Urine Osmolality 317 U Random Total Protein Ur Random Sodium Ur Random Urea Nitrogn Urine Creatinine Blood Type Antibody Screen Crossmatch 03/18/17 03/18/17 03/18/17 21:45 23:10 23:10 WBC 17.8 H RBC 2.64 L Hgb 6.7 L* D Hct 21.2 L MCV 80.5 MCH 25.5 L MCHC 31.6 L RDW 18.3 H Plt Count 438 H MPV 8.5 Total Counted Neutrophils % 91.8 H D Neutrophils % (Manual) Band Neutrophils % Lymphocytes % 3.5 L D Lymphocytes % (Manual) Monocytes % 4.3 Monocytes % (Manual) Eosinophils % 0.2 D Eosinophils % (Manual) Basophils % 0.2 Hypochromia Platelet Estimate Polychromasia PT with INR INR Puncture Site Patient Temperature ABG pH ABG pCO2 at Pt Temp ABG pO2 at Pt Temp ABG HCO3 ABG O2 Sat (Measured) ABG O2 Content ABG Base Excess Beau Test Oxygen Flow Rate Sodium Potassium Chloride Carbon Dioxide Anion Gap BUN Creatinine Creat Clearance w eGFR POC Glucometer Random Glucose Serum Osmolality Lactic Acid Calcium Phosphorus Magnesium Ferritin Total Bilirubin AST ALT Alkaline Phosphatase Creatine Kinase Troponin I Total Protein Albumin Urine Color Urine Appearance Urine pH Ur Specific [place] Urine Protein Urine Glucose (UA) Urine Ketones Urine Blood Urine Nitrite Urine Bilirubin Urine Urobilinogen Ur Leukocyte Esterase Urine RBC Ur Epithelial Cells Urine Mucus Urine Osmolality U Random Total Protein Ur Random Sodium 27 Ur Random Urea Nitrogn 401 Urine Creatinine Blood Type Antibody Screen Crossmatch 03/18/17 03/18/17 03/19/17 23:10 23:10 02:45 WBC RBC Hgb Hct MCV MCH MCHC RDW Plt Count MPV Total Counted Neutrophils % Neutrophils % (Manual) Band Neutrophils % Lymphocytes % Lymphocytes % (Manual) Monocytes % Monocytes % (Manual) Eosinophils % Eosinophils % (Manual) Basophils % Hypochromia Platelet Estimate Polychromasia PT with INR INR Puncture Site Patient Temperature ABG pH ABG pCO2 at Pt Temp ABG pO2 at Pt Temp ABG HCO3 ABG O2 Sat (Measured) ABG O2 Content ABG Base Excess Beau Test Oxygen Flow Rate Sodium 123 L* Potassium 4.7 Chloride 92 L Carbon Dioxide 20 L Anion Gap 11 BUN 120 H* Creatinine 7.4 H Creat Clearance w eGFR POC Glucometer Random Glucose 438 H* Serum Osmolality Lactic Acid Calcium 7.0 L Phosphorus Magnesium Ferritin Total Bilirubin AST ALT Alkaline Phosphatase Creatine Kinase Troponin I Total Protein Albumin Urine Color Urine Appearance Urine pH Ur Specific [place] Urine Protein Urine Glucose (UA) Urine Ketones Urine Blood Urine Nitrite Urine Bilirubin Urine Urobilinogen Ur Leukocyte Esterase Urine RBC Ur Epithelial Cells Urine Mucus Urine Osmolality U Random Total Protein 121 H Ur Random Sodium Ur Random Urea Nitrogn Urine Creatinine 101.0 Blood Type Antibody Screen Crossmatch 03/19/17 03/19/17 03/19/17 05:10 05:10 06:39 WBC 14.5 H RBC 2.82 L Hgb 7.3 L Hct 22.8 L MCV 80.8 MCH 25.8 MCHC 31.9 L RDW 18.6 H Plt Count 455 H MPV 8.8 Total Counted Neutrophils % 92.6 H Neutrophils % (Manual) Band Neutrophils % Lymphocytes % 2.6 L D Lymphocytes % (Manual) Monocytes % 4.1 Monocytes % (Manual) Eosinophils % 0.2 Eosinophils % (Manual) Basophils % 0.5 Hypochromia Platelet Estimate Polychromasia PT with INR INR Puncture Site Patient Temperature ABG pH ABG pCO2 at Pt Temp ABG pO2 at Pt Temp ABG HCO3 ABG O2 Sat (Measured) ABG O2 Content ABG Base Excess Beau Test Oxygen Flow Rate Sodium 124 L* Potassium 5.2 H Chloride 94 L Carbon Dioxide 17 L Anion Gap 13 BUN 116 H* Creatinine 7.4 H Creat Clearance w eGFR 7.54 POC Glucometer > 400 Random Glucose 393 H* Serum Osmolality Lactic Acid Calcium 7.0 L Phosphorus 5.9 H Magnesium 2.0 Ferritin 1246.533 H Total Bilirubin 0.5 D AST 5 L D ALT 12 Alkaline Phosphatase 152 H Creatine Kinase Troponin I Total Protein 5.1 L Albumin 1.5 L Urine Color Urine Appearance Urine pH Ur Specific [place] Urine Protein Urine Glucose (UA) Urine Ketones Urine Blood Urine Nitrite Urine Bilirubin Urine Urobilinogen Ur Leukocyte Esterase Urine RBC Ur Epithelial Cells Urine Mucus Urine Osmolality U Random Total Protein Ur Random Sodium Ur Random Urea Nitrogn Urine Creatinine Blood Type Antibody Screen Crossmatch 03/19/17 03/19/17 03/19/17 08:08 09:29 09:56 WBC RBC Hgb Hct MCV MCH MCHC RDW Plt Count MPV Total Counted Neutrophils % Neutrophils % (Manual) Band Neutrophils % Lymphocytes % Lymphocytes % (Manual) Monocytes % Monocytes % (Manual) Eosinophils % Eosinophils % (Manual) Basophils % Hypochromia Platelet Estimate Polychromasia PT with INR INR Puncture Site Left radial Patient Temperature 100 ABG pH 7.31 L ABG pCO2 at Pt Temp 32.3 L ABG pO2 at Pt Temp 70.1 L ABG HCO3 15.8 L ABG O2 Sat (Measured) 91.3 ABG O2 Content 9.2 L* ABG Base Excess -9.2 L Beau Test Positive Oxygen Flow Rate No Sodium Potassium Chloride Carbon Dioxide Anion Gap BUN Creatinine Creat Clearance w eGFR POC Glucometer > [phone] Random Glucose Serum Osmolality Lactic Acid Calcium Phosphorus Magnesium Ferritin Total Bilirubin AST ALT Alkaline Phosphatase Creatine Kinase Troponin I Total Protein Albumin Urine Color Urine Appearance Urine pH Ur Specific [place] Urine Protein Urine Glucose (UA) Urine Ketones Urine Blood Urine Nitrite Urine Bilirubin Urine Urobilinogen Ur Leukocyte Esterase Urine RBC Ur Epithelial Cells Urine Mucus Urine Osmolality U Random Total Protein Ur Random Sodium Ur Random Urea Nitrogn Urine Creatinine Blood Type Antibody Screen Crossmatch 03/19/17 03/19/17 10:39 11:27 WBC RBC Hgb Hct MCV MCH MCHC RDW Plt Count MPV Total Counted Neutrophils % Neutrophils % (Manual) Band Neutrophils % Lymphocytes % Lymphocytes % (Manual) Monocytes % Monocytes % (Manual) Eosinophils % Eosinophils % (Manual) Basophils % Hypochromia Platelet Estimate Polychromasia PT with INR INR Puncture Site Patient Temperature ABG pH ABG pCO2 at Pt Temp ABG pO2 at Pt Temp ABG HCO3 ABG O2 Sat (Measured) ABG O2 Content ABG Base Excess Beau Test Oxygen Flow Rate Sodium Potassium Chloride Carbon Dioxide Anion Gap BUN Creatinine Creat Clearance w eGFR POC Glucometer [phone] Random Glucose Serum Osmolality Lactic Acid Calcium Phosphorus Magnesium Ferritin Total Bilirubin AST ALT Alkaline Phosphatase Creatine Kinase Troponin I Total Protein Albumin Urine Color Urine Appearance Urine pH Ur Specific [place] Urine Protein Urine Glucose (UA) Urine Ketones Urine Blood Urine Nitrite Urine Bilirubin Urine Urobilinogen Ur Leukocyte Esterase Urine RBC Ur Epithelial Cells Urine Mucus Urine Osmolality U Random Total Protein Ur Random Sodium Ur Random Urea Nitrogn Urine Creatinine Blood Type Antibody Screen Crossmatch Active Medications Generic Name Dose Route Start Last Admin Trade Name Freq PRN Reason Stop Dose Admin Albuterol Sulfate 1 amp 03/18/17 20:12 Ventolin 0.083% Nebulizer Soln - NEB Q4H PRN SHORT OF BREATH/WHEEZING Amlodipine Besylate 10 mg 03/19/17 10:00 03/19/17 09:04 Norvasc - PO Not Given DAILY [facility] Doxazosin Mesylate 4 mg 03/19/17 10:00 03/19/17 09:03 Cardura - PO Not Given DAILY [facility] Duloxetine HCl 30 mg 03/19/17 10:00 03/19/17 09:13 Cymbalta - PO 30 mg DAILY [facility] Administration Epoetin Joe 20,000 unit 03/19/17 09:54 Procrit - IVPUSH 03/19/17 09:55 ONCE ONE Folic Acid 1 mg 03/19/17 10:00 03/19/17 09:13 Folic Acid - PO 1 mg DAILY [facility] Administration Heparin Sodium (Porcine) 5,000 unit 03/18/17 22:00 03/19/17 09:07 Heparin - SQ 5,000 unit BID [facility] Administration Sodium Chloride 1,000 mls @ 150 mls/hr 03/18/17 18:00 03/19/17 11:40 Normal Saline - IV 150 mls/hr ASDIR [facility] Administration Insulin Aspart 1 vial 03/19/17 11:45 03/19/17 12:00 Novolog Vial Sliding Scale - SQ Not Given ACHS [facility] Protocol Metoprolol Tartrate 50 mg 03/18/17 22:00 03/19/17 09:04 Lopressor - PO Not Given BID [facility] Mirtazapine 30 mg 03/18/17 22:00 03/18/17 23:59 Remeron - PO 30 mg HS [facility] Administration Piperacillin/Tazobactam/Dextrose 2.25 gm 03/19/17 02:00 Zosyn 2.25gm Ivpb (Premix) IVPB Q8H-IV [facility] Sodium Bicarbonate 1,300 mg 03/18/17 18:00 03/19/17 09:07 Sodium Bicarbonate - PO 1,300 mg BID [facility] Administration Trazodone HCl 300 mg 03/18/17 23:45 03/19/17 00:00 Desyrel - PO 300 mg HS [facility] Administration ASSESSMENT/PLAN: Neuro: - A&Ox3 - Slightly lethargic but improved with food CV: - Initial EKG reported to have first degree block - Repeat EKG, pending Pulm: - None Renal: - Stage 4 CKD, baseline Cr 2.7, now 7.4 - U/S shows medical renal disease with no evidence of hydronephrosis - Dr. Jansen, nephrology, recommends fluid resuscitation and dialysis today and before surgery tomorrow : - Serna in place; making appropriate urine GI: - None ID: - Osteo of L foot; plan for amputation tomorrow - Continue vanc with renal dosing - Continue Zosyn Hem/Onc: - Per nephro recs, will get 1 unit of PRBC's prior to procedure Endocrine: - Insulin dependent diabetic MSK - L foot osteo requiring BKA by Dr. Daly - Will be NPO tonight. Procedure will be done 03/20/17 PPX: - Heparin ggt FEN (Fluids, electrolytes, nutrition): - 150mL/hour NS - Renal diet Dispo: - OR, continue abx - Appreciate nephro's continued recs Visit type - Emergency Visit Emergency Visit: Yes ED Registration Date: 03/18/17 Care time: The patient presented to the Emergency Department on the above date and was hospitalized for further evaluation of their emergent condition. - New Patient This patient is new to me today: Yes Date on this admission: 03/26/17 - Critical Care Critical Care patient: Yes Total Critical Care Time (in minutes): 40 Critical Care Statement: The care of this patient involved high complexity decision making to prevent further life threatening deterioration of the patient 's condition and/or to evaluate & treat vital organ system(s) failure or risk of failure.
--- NOTE | 2017-03-19 15:16 | CON.ID ---
Consult Consult Specialty:: infectious diseases Reason for Consultation:: sepsis,wound infection - History of Present Illness History of Present Illness: 61-year-old male history of esrd on hd, hypertension, insulin-dependent diabetic , s/p R great toe amp, s/p L TMA, anemia s/p transfusion 08/13, here w/ syncope. Pt states while enroute to his podistrist at [facility] this afternoon, his whole body started "tingling" and that he became weak and was "unable to hold myself up". Next thing he remembers is waking up on the ground on his left side. States bystanders called 911. Pt c/o pain to back of head, neck and pain "to my left ribs" as per pt. No back or hip pain and has not tried to bear weight since fall. Patient states at baseline he uses a cane but for the past week, has felt more off balance and has been using his walker. Was not using his walker today as per patient. Denies any dizziness or chest pain prior to fall. 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: Peripheral Neuropathy Cardio/Vascular: Yes: HTN Gastrointestinal: Yes: GERD Renal/: Yes: Renal Inusuff Infectious Disease: Yes: Other (osteomyelitis) Psych: Yes: Depression Musculoskeletal: Yes: Other (chronic pain) Rheumatology: Yes: Other (history of osteomyelitis) Endocrine: Yes: Diabetes Mellitus - Past Surgical History Past Surgical History: Yes: Amputation (transmetatarsal of Left foot) - Alcohol/Substance Use Hx Alcohol Use: No Number of Drinks Daily: 2 (weekends) - Smoking History Smoking history: Current every day smoker Have you smoked in the past 12 months: No Aproximately how many cigarettes per day: 1 - Social History Usual Living Arrangement: Longterm ADL: Support Services History of Recent Travel: No Home Medications - Allergies Allergies/Adverse Reactions: Allergies Allergy/AdvReac Type Severity Reaction Status Date / Time shellfish derived Allergy Severe "HIVES" Verified 03/18/17 14:03 No Known Drug Allergies Allergy Verified 03/18/17 14:03 - Home Medications Home Medications: Ambulatory Orders Amlodipine Besylate [Norvasc -] 10 mg PO DAILY 11/07/14 Ascorbate Calcium [Vitamin C] 500 mg PO DAILY 11/07/14 Ferrous Sulfate [Feosol] 325 mg PO DAILY 11/07/14 Folic Acid - 1 mg PO DAILY 11/07/14 Trazodone HCl 300 mg PO HS 11/07/14 Mirtazapine [Remeron -] 30 mg PO HS 08/19/16 Albuterol 0.083% Nebulizer Coretta [Ventolin 0.083% Nebulizer Soln -] 1 amp NEB Q4H PRN #0 amp 09/12/16 Metoprolol Tartrate [Lopressor -] 50 mg PO BID tablet 09/12/16 Furosemide [Lasix -] 80 mg PO DAILY #30 tablet 10/24/16 Sodium Bicarbonate 325 mg PO BID 11/21/16 Oxycodone HCl [Roxicodone -] 5 mg PO QID #120 tablet MDD 4 03/07/17 Doxazosin Mesylate [Cardura] 4 mg PO DAILY 03/18/17 Duloxetine HCl 30 mg PO DAILY 03/18/17 Ergocalciferol (Vitamin D2) [Vitamin D2] 50,000 unit PO WEEKLY 03/18/17 Insulin (Levemir) [Levemir Flexpen -] 15 units SQ HS 03/18/17 Insulin Aspart [Novolog] 0 unit SQ ASDIR 03/18/17 Family Disease History - Family Disease History Family Disease History: Diabetes: Mother Review of Systems Unable to obtain ROS, reason: unable to obtain Physical Exam Vital Signs: Vital Signs Temperature 99.2 F 03/19/17 09:55 Pulse Rate 72 03/19/17 13:00 Respiratory Rate 15 03/19/17 13:00 Blood Pressure 85/54 03/19/17 13:00 O2 Sat by Pulse Oximetry (%) 99 03/19/17 09:00 Constitutional: Yes: Calm, Other (lethargic) Eyes: Yes: Conjunctiva Clear HENT: Yes: Atraumatic, Normocephalic Cardiovascular: Yes: Regular Rate and Rhythm Respiratory: Yes: Regular, CTA Bilaterally Gastrointestinal: Yes: Normal Bowel Sounds, Soft Musculoskeletal: Yes: Other Extremities: Yes: Other Edema: LLE: 1+, RLE: 1+ Integumentary: Yes: Erythema, Other Wound/Incision: Yes: Draining, Other (drainaing) Neurological: Yes: Lethargy, Other Psychiatric: Yes: Other Labs: CBC, BMP 03/19/17 05:10 03/19/17 05:10 Imaging - Results Chest X-ray: Report Reviewed, Image Reviewed X-ray: Report Reviewed, Image Reviewed Cat Scan: Report Reviewed, Image Reviewed Assessment/Plan Problem List - Problems (1) ARF (acute renal failure) Code(s): N17.9 - ACUTE KIDNEY FAILURE, UNSPECIFIED Qualifiers: Acute renal failure type: unspecified Qualified Code(s): N17.9 - Acute kidney failure, unspecified (2) Hyperkalemia Code(s): E87.5 - HYPERKALEMIA (3) Hyponatremia Code(s): E87.1 - HYPO-OSMOLALITY AND HYPONATREMIA (4) Syncope Code(s): R55 - SYNCOPE AND COLLAPSE Qualifiers: Syncope type: unspecified Qualified Code(s): R55 - Syncope and collapse (5) 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 Code(s): E11.9 - TYPE 2 DIABETES MELLITUS WITHOUT COMPLICATIONS Qualifiers: 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 type: type 2 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 complication status: without complication 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 usp insulin use: without ad terminal makeup operator use Qualified Code(s): E11.9 - Type 2 diabetes mellitus without complications (6) GERD (gastroesophageal reflux disease) Code(s): K21.9 - GASTRO-ESOPHAGEAL REFLUX DISEASE WITHOUT ESOPHAGITIS (7) HTN (hypertension) Code(s): I10 - ESSENTIAL (PRIMARY) HYPERTENSION Qualifiers: Hypertension type: essential hypertension Qualified Code(s): I10 - Essential (primary) hypertension (8) Type 2 diabetes mellitus with foot ulcer Code(s): E11.621 - TYPE 2 DIABETES MELLITUS WITH FOOT ULCER; L97.509 - NON- PRESSURE CHRONIC ULCER OTH PRT UNSP FOOT W UNSP SEVERITY patient with multiple medical problems septic with positive blood cx with the source of his infection is his foot whish is planned to be amputated once patient stabilizespatient currently lethargic plan conitnue abx await for identification of the bacteria patient needs surgery earlier rather than later hydration monitor vital and support accordingly rest as per the icu team cc time 45 min
[2017-03-19] MEDS ORDERED: PIPERACILLIN/TAZOB 2.25 GM 2.25 GM/50 ML BAG IVPB SCH (15:30)
[2017-03-19] MEDS ORDERED: VANCOMYCIN 1,000 MG in DEXTROSE 5%-WATER - 250 ML IVPB ONE (16:15)
--- NOTE | 2017-03-19 16:22 | EKG ---
Test Reason : Blood Pressure : / mmHG Vent. Rate : 071 BPM Atrial Rate : 071 BPM P-R Int : 230 ms QRS Dur : 102 ms QT Int : 426 ms P-R-T Axes : 108 056 066 degrees QTc Int : 462 ms SINUS RHYTHM WITH 1ST DEGREE A-V BLOCK OTHERWISE NORMAL ECG CLINICAL CORRELATION IS RECOMMENDED Confirmed by RAGHU MATA MD ([id number]) on 03/19/2017 4:22:13 PM Referred By: Mariama MALONE Confirmed By:RAGHU MATA MD
[2017-03-19] MEDS ORDERED: EPOETIN ALFA 20,000 UNIT/1 ML VIAL IVPUSH ONE (16:30)
[2017-03-19] MEDS ORDERED: HEMOQUE TEST 1 EACH EACH ONE ×2 (16:37→20:45)
--- NOTE | 2017-03-19 17:37 | HOSP ---
Subjective - Review of Symptoms Events since last encounter: patient states he takes levemir 40 bid at home. will start 15 bid with sliding scale and titrate up if needed Physical Examination Vital Signs: Vital Signs Temperature 97.0 F L 03/19/17 16:00 Pulse Rate 79 03/19/17 17:15 Respiratory Rate 18 03/19/17 17:15 Blood Pressure 114/61 03/19/17 17:15 O2 Sat by Pulse Oximetry (%) 99 03/19/17 09:00 Labs: CBC, BMP 03/19/17 05:10 03/19/17 05:10
--- NOTE | 2017-03-19 18:18 | EKG ---
Test Reason : Blood Pressure : / mmHG Vent. Rate : 072 BPM Atrial Rate : 072 BPM P-R Int : 254 ms QRS Dur : 114 ms QT Int : 396 ms P-R-T Axes : 100 056 058 degrees QTc Int : 433 ms SINUS RHYTHM WITH SINUS PAUSES, FIRST DEGREE AV BLOCK ATRIAL ABNORMALITY WHEN COMPARED WITH ECG OF 21-OCT-2016 18:03, QRS DURATION HAS INCREASED NONSPECIFIC T WAVE ABNORMALITY NO LONGER EVIDENT IN INFERIOR LEADS NONSPECIFIC T WAVE ABNORMALITY NO LONGER EVIDENT IN LATERAL LEADS REPEAT EKG IF CLINICALLY INDICATED Confirmed by RAGHU MATA MD ([id number]) on 03/19/2017 6:17:32 PM Referred By: Confirmed By:RAGHU MATA MD
[2017-03-19] MEDS: PIPERACILLIN/TAZOB 2.25 GM 2.25 GM in DEXTROSE 5%-WATER - 50 ML IVPB SCH (18:30)
[2017-03-19] MEDS ORDERED: INSULIN DETEMIR 100 UNITS/ML MDV SQ ONE (19:50)
[2017-03-19] MEDS ORDERED: morphine SULFATE 4 MG/ML VIAL IVPUSH PRN (20:00)
--- NOTE | 2017-03-19 20:02 | PN ---
Progress Note (short form) - Note Progress Note: Vascular Surgery Pt seen and examined. Left foot dressing changed. Pus draining from foot. the calf is very tender, which is a ominous sign that the infection is traveling up the calf. Will do guiotene amputation chris at 9am Al Daly DO
[2017-03-19] MEDS ORDERED: morphine SULFATE 4 MG/ML VIAL ONE (20:05)
[2017-03-19] MEDS ORDERED: MIRTAZAPINE 15 MG TABLET (FP) ONE (21:02)
[2017-03-19] MEDS: traZODone HCL 100 MG TABLET (FP) PO SCH ×2 (21:17)
[2017-03-19] MEDS: MIRTAZAPINE 30 MG TABLET (FP) PO SCH (21:18)
[2017-03-19 21:23] LABS: MCH 26.3 pg (25.7-33.7); MCHC 32.9 g/dl (32.0-35.9); MEAN CELL VOLUME 79.9 fl (80-96); MEAN PLT VOLUME 8.4 fl (7.5-11.1); PLATELET COUNT 431 K/MM3 (134-434); WHITE BLOOD COUNT 17.5 K/mm3 (4.0-10.0)
--- NOTE | 2017-03-19 21:44 | PN ---
Progress Note, Physician History of Present Illness: NO COMPLAINTS - Current Medication List Current Medications: Active Medications Albuterol Sulfate (Ventolin 0.083% Nebulizer Soln -) 1 amp NEB Q4H PRN PRN Reason: SHORT OF BREATH/WHEEZING Amlodipine Besylate (Norvasc -) 10 mg PO DAILY [facility] Last Admin: 03/19/17 09:04 Dose: Not Given Doxazosin Mesylate (Cardura -) 4 mg PO DAILY [facility] Last Admin: 03/19/17 09:03 Dose: Not Given Duloxetine HCl (Cymbalta -) 30 mg PO DAILY [facility] Last Admin: 03/19/17 09:13 Dose: 30 mg Folic Acid (Folic Acid -) 1 mg PO DAILY [facility] Last Admin: 03/19/17 09:13 Dose: 1 mg Heparin Sodium (Porcine) (Heparin -) 5,000 unit SQ BID [facility] Last Admin: 03/19/17 21:29 Dose: Not Given Sodium Chloride (Normal Saline -) 1,000 mls @ 150 mls/hr IV ASDIR [facility] Last Admin: 03/19/17 19:00 Dose: 150 mls/hr Piperacillin Sod/Tazobactam (Sod 2.25 gm/ Dextrose) 50 mls @ 100 mls/hr IVPB Q8H-IV [facility] Last Admin: 03/19/17 18:30 Dose: 100 mls/hr Insulin Aspart (Novolog Vial Sliding Scale -) 1 vial SQ ACHS IGGY PRN Reason: Protocol Last Admin: 03/19/17 21:19 Dose: 10 units Insulin Detemir (Levemir Vial) 15 units SQ BID@0700,1630 [facility] Metoprolol Tartrate (Lopressor -) 50 mg PO BID [facility] Last Admin: 03/19/17 21:18 Dose: 50 mg Mirtazapine (Remeron -) 30 mg PO HS [facility] Last Admin: 03/19/17 21:18 Dose: 30 mg Morphine Sulfate (Morphine Sulfate) 4 mg IVPUSH Q6H PRN PRN Reason: PAIN Last Admin: 03/19/17 20:00 Dose: 4 mg Sodium Bicarbonate (Sodium Bicarbonate -) 1,300 mg PO BID [facility] Last Admin: 03/19/17 21:18 Dose: 1,300 mg Trazodone HCl (Desyrel -) 300 mg PO HS [facility] Last Admin: 03/19/17 21:17 Dose: 300 mg - Objective Vital Signs: Vital Signs Temperature 98.0 F 03/19/17 18:00 Pulse Rate 90 03/19/17 18:00 Respiratory Rate 15 03/19/17 18:00 Blood Pressure 121/63 03/19/17 18:00 O2 Sat by Pulse Oximetry (%) 99 03/19/17 09:00 Constitutional: Yes: No Distress HENT: Yes: Atraumatic Neck: Yes: Supple Cardiovascular: Yes: Regular Rate and Rhythm Respiratory: Yes: CTA Bilaterally Gastrointestinal: Yes: Normal Bowel Sounds Extremities: Yes: Amputation (LEFT FOOT TOES) Neurological: Yes: Alert, Oriented Labs: CBC, BMP 03/19/17 21:00 03/19/17 05:10 INR, PTT INR 1.14 (0.82-1.09) 03/18/17 17:50 Problem List - Problems (1) ARF (acute renal failure) Assessment/Plan: on hd dr mendoza Code(s): N17.9 - ACUTE KIDNEY FAILURE, UNSPECIFIED Qualifiers: Acute renal failure type: unspecified Qualified Code(s): N17.9 - Acute kidney failure, unspecified (2) Hyperkalemia Assessment/Plan: on hd..will improve Code(s): E87.5 - HYPERKALEMIA (3) Hyponatremia Assessment/Plan: monitor ..on hd Code(s): E87.1 - HYPO-OSMOLALITY AND HYPONATREMIA (4) Syncope Assessment/Plan: resolved Code(s): R55 - SYNCOPE AND COLLAPSE Qualifiers: Syncope type: unspecified Qualified Code(s): R55 - Syncope and collapse (5) 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 Assessment/Plan: [facility] [place] insulin Code(s): E11.9 - TYPE 2 DIABETES MELLITUS WITHOUT COMPLICATIONS Qualifiers: 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 type: type 2 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 complication status: without complication 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 long-term insulin use: without terminal manager use Qualified Code(s): E11.9 - Type 2 diabetes mellitus without complications (6) GERD (gastroesophageal reflux disease) Code(s): K21.9 - GASTRO-ESOPHAGEAL REFLUX DISEASE WITHOUT ESOPHAGITIS (7) HTN (hypertension) Code(s): I10 - ESSENTIAL (PRIMARY) HYPERTENSION Qualifiers: Hypertension type: essential hypertension Qualified Code(s): I10 - Essential (primary) hypertension (8) Type 2 diabetes mellitus with foot ulcer Code(s): E11.621 - TYPE 2 DIABETES MELLITUS WITH FOOT ULCER; L97.509 - NON- PRESSURE CHRONIC ULCER OTH PRT UNSP FOOT W UNSP SEVERITY Assessment/Plan for OR IN AM CC TIME 35 MIN
[2017-03-19] MEDS ORDERED: INSULIN DETEMIR 100 UNITS/ML MDV SQ SCH (22:00)
[2017-03-20] MEDS: PIPERACILLIN/TAZOB 2.25 GM 2.25 GM in DEXTROSE 5%-WATER - 50 ML IVPB SCH ×3 (01:11→17:26)
[2017-03-20] MEDS: SODIUM CHLORIDE 1,000 ML IV SCH ×4 (01:13→23:25)
[2017-03-20 06:06] LABS: SERUM IRON 54 ug/dL (38-169); TOTAL IRON BINDING CAPACITY 108 ug/dL (250-450); UIBC 54 ug/dL (111-343)
[2017-03-20] MEDS: INSULIN SLIDING SCALE (NOVOLOG) 1 VIAL SQ SCH ×4 (06:09→21:48)
[2017-03-20] MEDS ORDERED: INSULIN (NOVOLOG MIX 70/30) 100 UNITS/ML MDV SQ ONE (06:30)
[2017-03-20 06:39] LABS: MCH 26.6 pg (25.7-33.7); MCHC 32.9 g/dl (32.0-35.9); MEAN CELL VOLUME 80.7 fl (80-96); MEAN PLT VOLUME 8.4 fl (7.5-11.1); PLATELET COUNT 420 K/MM3 (134-434); RDW 18.2 % (11.9-15.9); WHITE BLOOD COUNT 14.7 K/mm3 (4.0-10.0)
[2017-03-20] MEDS ORDERED: INSULIN DETEMIR 100 UNITS/ML MDV SQ SCH (07:00)
[2017-03-20 07:07] LABS: ALBUMIN 1.4 g/dl (3.4-5.0); ANION GAP 10 (8-16); CO2 22 mmol/L (21-32); MAGNESIUM 1.8 mg/dL (1.8-2.4); PHOSPHOROUS 5.6 mg/dL (2.5-4.9)
[2017-03-20 07:10] LABS: ALK PHOS 162 U/L (45-117); BILIRUBIN,TOTAL 0.4 mg/dL (0.2-1.0); CREATININE 6.1 mg/dL (0.7-1.3); SGPT/ALT 10 U/L (12-78); TOT PROT 4.8 g/dl (6.4-8.2)
[2017-03-20 07:14] LABS: SGOT/AST 4 U/L (15-37)
[2017-03-20 07:16] LABS: CALCIUM 6.7 mg/dL (8.5-10.1); GLUCOSE,RANDOM 319 mg/dL (74-106)
[2017-03-20 08:43] LABS: TOTAL CELLS COUNTED 100
[2017-03-20 08:44] LABS: METAMYELOCYTE 1 % (0-2); MYELOCYTE 2 % (0-2); NUCLEATED RED BLOOD CELL 1 % (0-0); PLATELET ESTIMATE ADEQUATE
[2017-03-20] MEDS: DOXAZOSIN MESYLATE 4 MG TABLET PO SCH (09:05)
[2017-03-20] MEDS: amLODIPine BESYLATE 10 MG TABLET (FP) PO SCH (09:05)
[2017-03-20] MEDS: SODIUM BICARBONATE 650 MG TABLET PO SCH ×2 (09:06→21:40)
[2017-03-20] MEDS: METOPROLOL TARTRATE 25 MG TABLET (FP) PO SCH ×2 (09:06→21:40)
--- NOTE | 2017-03-20 11:12 | OP ---
Operative Note - Note: Operative Date: 03/20/17 Pre-Operative Diagnosis: Left foot gangrene with pus Operation: left guillotine amputation Post-Operative Diagnosis: Same as Pre-op Surgeon: Al Daly Anesthesia: Fractional Specimens Removed: left leg Estimated Blood Loss (mls): 150 Operative Report Dictated: Yes
--- NOTE | 2017-03-20 11:33 | PN ---
Progress Note (short form) - Note Progress Note: Renal Follow up for FROYLAN on CKD Pt seen and examined in the ICU s/p 2nd dialysis this am s/p left foot amputation awake and alert no acute complaints no sob, chest pain on IVF making urine Vital Signs Temperature 98.4 F 03/20/17 09:45 Pulse Rate 76 03/20/17 10:00 Respiratory Rate 14 03/20/17 10:00 Blood Pressure 98/58 03/20/17 10:00 O2 Sat by Pulse Oximetry (%) 96 03/20/17 09:00 Intake & Output 03/17/17 03/18/17 03/19/17 03/20/17 23:59 23:59 23:59 23:59 Intake Total 600 4397.4 2500 Output Total 200 1200 200 Balance 400 3197.4 2300 Weight 81.703 kg 81.703 kg 87.572 kg NAD awake and alert RRR Dec Bs at lung bases, no rales soft NT/ND Trace to 1+ Le edema left foot in dressing, bloody CBC, BMP 03/20/17 05:10 03/20/17 05:10 Current Medications Albuterol Sulfate (Ventolin 0.083% Nebulizer Soln -) 1 amp NEB Q4H PRN PRN Reason: SHORT OF BREATH/WHEEZING Amlodipine Besylate (Norvasc -) 10 mg PO DAILY [facility] Last Admin: 03/20/17 09:05 Dose: Not Given Chlorhexidine Gluconate (Hibiclens For Decolonization -) 1 applic TP HS [facility] Doxazosin Mesylate (Cardura -) 4 mg PO DAILY [facility] Last Admin: 03/20/17 09:05 Dose: Not Given Duloxetine HCl (Cymbalta -) 30 mg PO DAILY [facility] Last Admin: 03/19/17 09:13 Dose: 30 mg Folic Acid (Folic Acid -) 1 mg PO DAILY [facility] Last Admin: 03/19/17 09:13 Dose: 1 mg Heparin Sodium (Porcine) (Heparin -) 5,000 unit SQ BID [facility] Last Admin: 03/19/17 21:29 Dose: Not Given Sodium Chloride (Normal Saline -) 1,000 mls @ 150 mls/hr IV ASDIR [facility] Last Admin: 03/20/17 08:00 Dose: 150 mls/hr Piperacillin Sod/Tazobactam (Sod 2.25 gm/ Dextrose) 50 mls @ 100 mls/hr IVPB Q8H-IV [facility] Last Admin: 03/20/17 01:11 Dose: 100 mls/hr Insulin Aspart (Novolog Vial Sliding Scale -) 1 vial SQ ACHS [facility] PRN Reason: Protocol Last Admin: 03/20/17 06:09 Dose: 10 units Insulin Detemir (Levemir Vial) 15 units SQ BID@0700,1630 [facility] Last Admin: 03/20/17 06:08 Dose: Not Given Metoprolol Tartrate (Lopressor -) 50 mg PO BID [facility] Last Admin: 03/20/17 09:06 Dose: Not Given Mirtazapine (Remeron -) 30 mg PO HS [facility] Last Admin: 03/19/17 21:18 Dose: 30 mg Morphine Sulfate (Morphine Sulfate) 4 mg IVPUSH Q6H PRN PRN Reason: PAIN Last Admin: 03/19/17 20:00 Dose: 4 mg Mupirocin (Bactroban Ointment (For Decolonization) -) 1 applic NS BID [facility] Stop: 03/25/17 21:59 Sodium Bicarbonate (Sodium Bicarbonate -) 1,300 mg PO BID [facility] Last Admin: 03/20/17 09:06 Dose: Not Given Trazodone HCl (Desyrel -) 300 mg PO HS [facility] Last Admin: 03/19/17 21:17 Dose: 300 mg 61 year old gentleman with PMhx of CKD stage 4 (baseline Cr 2.8), Hypertension , DM, PVD, Depression who presented with syncope and found to have acute on chronic renal failure with hyperkalemia and hyponatremia. #Acute Renal Failure in setting of known CKD with Hyperkalemia FROYLAN likely secondary to volume depletion in setting fo sepsis/lasix Renal US w/o obstruction but with increased echogenicity consistent with CKD Urine output now improved s/p 2nd HD this am with improvement in K, CO2, BUN trend BUN/cr for now monitor for improvement in renal function continue isotonic saline keep MAP > 65 #Hyponatremia, likely hypovolemic Serum Na improved continue isotonic saline #Leukocytosis/Sepsis continue Abx as per ID s/p left foot amputation #Acute on Chronic anemia transfuse prbc as per ICU protocol Miguel Jansen DO Problem List - Problems (1) Hyponatremia Code(s): E87.1 - HYPO-OSMOLALITY AND HYPONATREMIA (2) ARF (acute renal failure) Code(s): N17.9 - ACUTE KIDNEY FAILURE, UNSPECIFIED Qualifiers: Acute renal failure type: unspecified Qualified Code(s): N17.9 - Acute kidney failure, unspecified (3) Hyperkalemia Code(s): E87.5 - HYPERKALEMIA (4) Syncope Code(s): R55 - SYNCOPE AND COLLAPSE Qualifiers: Syncope type: unspecified Qualified Code(s): R55 - Syncope and collapse (5) FROYLAN (acute kidney injury) Code(s): N17.9 - ACUTE KIDNEY FAILURE, UNSPECIFIED
[2017-03-20] MEDS: HEPARIN NA (PORCINE) 5,000 UNITS/ML 1ML VIAL SQ SCH ×2 (11:48→21:40)
[2017-03-20] MEDS ORDERED: HEMOQUE TEST 1 EACH EACH ONE (11:50)
[2017-03-20] MEDS: DULoxetine HCL 30 MG CAPSULE.DR (FP) PO SCH (12:01)
[2017-03-20] MEDS: FOLIC ACID 1 MG TABLET (FP) PO SCH (12:01)
--- NOTE | 2017-03-20 12:17 | OP ---
DATE OF OPERATION: 03/20/2017 PREOPERATIVE DIAGNOSIS: Left foot abscess/gangrene with pus. POSTOPERATIVE DIAGNOSIS: Left foot abscess/gangrene with pus. PROCEDURE: Left guillotine amputation above the ankle. ANESTHESIA: General. SURGEON: Al Castillo MD BLOOD LOSS: 150 mL. INDICATIONS: The patient is a 61-year-old male who came in with a prior history of left TMA, and now that is pusing out with abscess going up the leg. Patient had gangrene and lost his toes in that foot. Patient was seen by his [employer], Aroldo Galvan, who performed an incision and drainage in the emergency room, but the pus was continuing to extend and called Vascular Surgery for a consult. The patient had a white count of 20,000 on admission and went into acute on chronic renal failure and was started on dialysis and now needs a guillotine amputation in order to stabilize his leg to drain out his leg, so that all the pus can be drained out and then can be converted to a formal left BKA. Patient was consented for the procedure understanding all risks, benefits, and alternatives and was then taken to the operating room. Patient had dialysis this morning and was given 1 unit of blood. Patient also had dialysis yesterday and was given another unit of blood. PROCEDURE IN DETAIL: Once the patient was brought to the operating room, he was laid down on the operating table in a supine manner and was administered general anesthesia. We then went ahead and did a circumferential incision above the ankle with a skin marker. We then went ahead and prepped and draped the left leg and foot in sterile surgical manner. We then took a No. 15 blade and cut along our incision. Bovie electrocautery was used to control hemostasis. We were able to get down to the tibia and the fibula. We were able to take down all the muscular attachments around the tibia and the fibula. All blood vessels were Bovie cauterized and clamped. We got around, took down the Achilles tendon using Bovie electrocautery. We then took our bone saw and cut directly across the tibia and the fibula, and the foot was removed and sent to Pathology. Bovie electrocautery was then used to control all hemostasis. We irrigated the wound copiously. The wound was to be left open due to the pus in the wound. We then went ahead and placed Xeroform, wet 4x4s, dry 4x4s, Kerlix, and Shashank bandages. Patient tolerated the procedure. There were no complications. Total blood loss was 150 mL. Patient transferred to PACU in stable condition. AL CASTILLO DO [id number]
--- NOTE | 2017-03-20 12:22 | PN ---
Teaching Attending Note Name of Resident: Natan Garcia ATTENDING PHYSICIAN STATEMENT I saw and evaluated the patient. I reviewed the resident's note and discussed the case with the resident. I agree with the resident's findings and plan as documented. SUBJECTIVE: Pt seen and examined in the ICU. s/p left foot amputation. No fevers recorded. Tolerating HD, received PRBC transfusions. OBJECTIVE: Last Vital Signs Temp Pulse Resp BP Pulse Ox 98.4 F 76 14 98/58 96 03/20/17 09:45 03/20/17 10:00 03/20/17 10:00 03/20/17 10:00 03/20/17 09:00 Intake & Output 03/17/17 03/18/17 03/19/17 03/20/17 23:59 23:59 23:59 23:59 Intake Total 600 4397.4 2500 Output Total 200 1200 200 Balance 400 3197.4 2300 Weight 180 lb 2 oz 180 lb 2 oz 193 lb 1 oz Gen: NAD at rest Heart: RRR Lung: decreased breath sounds at the bases Abd: soft, nontender Ext: no edema, dressings intact CBC, BMP 03/20/17 05:10 03/20/17 05:10 Active Medications Albuterol Sulfate (Ventolin 0.083% Nebulizer Soln -) 1 amp NEB Q4H PRN PRN Reason: SHORT OF BREATH/WHEEZING Amlodipine Besylate (Norvasc -) 10 mg PO DAILY [facility] Last Admin: 03/20/17 09:05 Dose: Not Given Chlorhexidine Gluconate (Hibiclens For Decolonization -) 1 applic TP HS [facility] Doxazosin Mesylate (Cardura -) 4 mg PO DAILY [facility] Last Admin: 03/20/17 09:05 Dose: Not Given Duloxetine HCl (Cymbalta -) 30 mg PO DAILY [facility] Last Admin: 03/20/17 12:01 Dose: 30 mg Folic Acid (Folic Acid -) 1 mg PO DAILY [facility] Last Admin: 03/20/17 12:01 Dose: 1 mg Heparin Sodium (Porcine) (Heparin -) 5,000 unit SQ BID [facility] Last Admin: 03/20/17 11:48 Dose: Not Given Sodium Chloride (Normal Saline -) 1,000 mls @ 150 mls/hr IV ASDIR [facility] Last Admin: 03/20/17 08:00 Dose: 150 mls/hr Piperacillin Sod/Tazobactam (Sod 2.25 gm/ Dextrose) 50 mls @ 100 mls/hr IVPB Q8H-IV [facility] Last Admin: 03/20/17 11:25 Dose: 100 mls/hr Insulin Aspart (Novolog Vial Sliding Scale -) 1 vial SQ ACHS IGGY PRN Reason: Protocol Last Admin: 03/20/17 11:59 Dose: 2 units Insulin Detemir (Levemir Vial) 15 units SQ BID@0700,1630 [facility] Last Admin: 03/20/17 06:08 Dose: Not Given Metoprolol Tartrate (Lopressor -) 50 mg PO BID [facility] Last Admin: 03/20/17 09:06 Dose: Not Given Mirtazapine (Remeron -) 30 mg PO HS [facility] Last Admin: 03/19/17 21:18 Dose: 30 mg Morphine Sulfate (Morphine Sulfate) 4 mg IVPUSH Q6H PRN PRN Reason: PAIN Last Admin: 03/19/17 20:00 Dose: 4 mg Mupirocin (Bactroban Ointment (For Decolonization) -) 1 applic NS BID [facility] Stop: 03/25/17 21:59 Sodium Bicarbonate (Sodium Bicarbonate -) 1,300 mg PO BID [facility] Last Admin: 03/20/17 09:06 Dose: Not Given Trazodone HCl (Desyrel -) 300 mg PO HS [facility] Last Admin: 03/19/17 21:17 Dose: 300 mg ASSESSMENT AND PLAN: Left Foot Gangrene Strep Bacteremia Septic Shock Acute on Chronic Renal Failure Hyperkalemia improving Hyponatremia improving Anemia DM - IV antibiotics per ID - f/u cultures - monitor H/H - HD per renal - transfuse PRBC - monitor lytes - continue insulin - monitor urine output, creatinine - for R BKA - DVT prophylaxis - continue ICU monitoring critical care time spent in reviewing chart, evaluating patient and formulating plan 35 min
--- NOTE | 2017-03-20 12:28 | PN ---
Physical Exam: SUBJECTIVE: The patient is a 61M with a PMH of CKD stage 4, HTN, DM, and PVD s/ p TMA who presented to the ED with headaches and a syncopal episode. The patient was found to be in septic shock and sent to the ICU. The patient is complaining of L lower extremity pain below his knee. His foot is actively draining pus. Otherwise he denies CP, SOB, fever, chills, nausea, vomiting. No acute events overnight OBJECTIVE: Vital Signs Period Temp Pulse Resp BP Sys/Gutierrez Pulse Ox Last 24 Hr 96.8 F-98.7 F 71-90 14-20 85-125/53-83 96-96 GENERAL: The patient is awake, alert, and fully oriented, in no acute distress. HEAD: Normal with no signs of trauma. EYES: PERRL, extraocular movements intact, sclera anicteric, conjunctiva clear. No ptosis. NECK: Trachea midline, full range of motion, supple. LUNGS: Breath sounds equal, clear to auscultation bilaterally, no wheezes, no crackles, no accessory muscle use. HEART: Regular rate and rhythm, S1, S2 without murmur, rub or gallop. ABDOMEN: Soft, nontender, nondistended, normoactive bowel sounds, no guarding, no rebound, no hepatosplenomegaly, no masses. EXTREMITIES: Tenderness to palpation over L lower extremity up to his distal knee. NEUROLOGICAL: Cranial nerves II through XII grossly intact. Normal speech, gait not observed. PSYCH: Normal mood, normal affect. SKIN: Warm, dry, normal turgor, no rashes or lesions noted Laboratory Results - last 24 hr 03/18/17 03/19/17 03/19/17 17:50 05:10 16:38 WBC RBC Hgb Hct MCV MCH MCHC RDW Plt Count MPV Total Counted Neutrophils % Neutrophils % (Manual) Lymphocytes % Lymphocytes % (Manual) Monocytes % (Manual) Myelocytes % (Man) Nucleated RBC % Metamyelocytes Platelet Estimate Sodium Potassium Chloride Carbon Dioxide Anion Gap BUN Creatinine Creat Clearance w eGFR POC Glucometer [phone] Random Glucose Calcium Phosphorus Magnesium Iron 54 TIBC 108 L Iron Saturation 50 Total Bilirubin AST ALT Alkaline Phosphatase Total Protein Albumin Random Vancomycin Blood Type B POSITIVE Antibody Screen Negative Crossmatch See Detail 03/19/17 03/19/17 03/20/17 20:53 21:00 05:10 WBC 17.5 H RBC 2.93 L Hgb 7.7 L Hct 23.4 L MCV 79.9 L MCH 26.3 MCHC 32.9 RDW 18.0 H Plt Count 431 MPV 8.4 Total Counted Neutrophils % Neutrophils % (Manual) Lymphocytes % Lymphocytes % (Manual) Monocytes % (Manual) Myelocytes % (Man) Nucleated RBC % Metamyelocytes Platelet Estimate Sodium Potassium Chloride Carbon Dioxide Anion Gap BUN Creatinine Creat Clearance w eGFR POC Glucometer [phone] Random Glucose Calcium Phosphorus Magnesium Iron TIBC Iron Saturation Total Bilirubin AST ALT Alkaline Phosphatase Total Protein Albumin Random Vancomycin 11.178 Blood Type Antibody Screen Crossmatch 03/20/17 03/20/17 03/20/17 05:10 05:10 05:52 WBC 14.7 H RBC 2.75 L Hgb 7.3 L Hct 22.2 L MCV 80.7 MCH 26.6 MCHC 32.9 RDW 18.2 H Plt Count 420 MPV 8.4 Total Counted 100 Neutrophils % No Result Required. Neutrophils % (Manual) 84.0 H Lymphocytes % No Result Required. Lymphocytes % (Manual) 11.0 D Monocytes % (Manual) 3 L Myelocytes % (Man) 2 Nucleated RBC % 1 H Metamyelocytes 1 Platelet Estimate Adequate Sodium 134 L Potassium 4.3 Chloride 102 Carbon Dioxide 22 D Anion Gap 10 BUN 93 H Creatinine 6.1 H Creat Clearance w eGFR 9.43 POC Glucometer [phone] Random Glucose 319 H* Calcium 6.7 L* Phosphorus 5.6 H Magnesium 1.8 Iron TIBC Iron Saturation Total Bilirubin 0.4 AST 4 L ALT 10 L Alkaline Phosphatase 162 H Total Protein 4.8 L Albumin 1.4 L Random Vancomycin Blood Type Antibody Screen Crossmatch Active Medications Generic Name Dose Route Start Last Admin Trade Name Freq PRN Reason Stop Dose Admin Albuterol Sulfate 1 amp 03/18/17 20:12 Ventolin 0.083% Nebulizer Soln - NEB Q4H PRN SHORT OF BREATH/WHEEZING Amlodipine Besylate 10 mg 03/19/17 10:00 03/20/17 09:05 Norvasc - PO Not Given DAILY IGGY Chlorhexidine Gluconate 1 applic 03/20/17 22:00 Hibiclens For Decolonization - TP HS IGGY Doxazosin Mesylate 4 mg 03/19/17 10:00 03/20/17 09:05 Cardura - PO Not Given DAILY IGGY Duloxetine HCl 30 mg 03/19/17 10:00 03/20/17 12:01 Cymbalta - PO 30 mg DAILY IGGY Administration Folic Acid 1 mg 03/19/17 10:00 03/20/17 12:01 Folic Acid - PO 1 mg DAILY IGGY Administration Heparin Sodium (Porcine) 5,000 unit 03/18/17 22:00 03/20/17 11:48 Heparin - SQ Not Given BID IGGY Sodium Chloride 1,000 mls @ 150 mls/hr 03/18/17 18:00 03/20/17 08:00 Normal Saline - IV 150 mls/hr ASDIR IGGY Administration Piperacillin Sod/Tazobactam 50 mls @ 100 mls/hr 03/19/17 18:00 03/20/17 11:25 Sod 2.25 gm/ Dextrose IVPB 100 mls/hr Q8H-IV IGGY Administration Insulin Aspart 1 vial 03/19/17 11:45 03/20/17 11:59 Novolog Vial Sliding Scale - SQ 2 units ACHS IGGY Administration Protocol Insulin Detemir 15 units 03/20/17 07:00 03/20/17 06:08 Levemir Vial SQ Not Given BID@0700,1630 [facility] Metoprolol Tartrate 50 mg 03/18/17 22:00 03/20/17 09:06 Lopressor - PO Not Given BID [facility] Mirtazapine 30 mg 03/18/17 22:00 03/19/17 21:18 Remeron - PO 30 mg HS IGGY Administration Morphine Sulfate 4 mg 03/19/17 20:00 03/19/17 20:00 Morphine Sulfate IVPUSH 4 mg Q6H PRN Administration PAIN Mupirocin 1 applic 03/20/17 22:00 Bactroban Ointment (For Decolonization) - NS 03/25/17 21:59 BID [facility] Sodium Bicarbonate 1,300 mg 03/18/17 18:00 03/20/17 09:06 Sodium Bicarbonate - PO Not Given BID IGGY Trazodone HCl 300 mg 03/18/17 23:45 03/19/17 21:17 Desyrel - PO 300 mg HS IGGY Administration ASSESSMENT/PLAN: Neuro: - A&Ox3 - No longer lethargic CV: - EKG showing 1st degree heart block, unchanged from September 2016 EKG Pulm: - None Renal: - Stage 4 CKD, baseline Cr 2.7, now 6.1 from 7.4 yesterday - U/S shows medical renal disease with no evidence of hydronephrosis - Dr. Jansen, nephrology, recommends fluid resuscitation and dialysis - Was dialyzed once yesterday and today before surgery : - Serna in place; making appropriate urine GI: - None ID: - Osteo of L foot; guillotine amputation done today by Dr. Daly. Will let drain until Saturday. - Continue vanc with renal dosing - Continue Zosyn Hem/Onc: - Had 1 unit PRBC prior to surgery and will receive 2 post-op Endocrine: - Insulin dependent diabetic - Continue insulin MSK - L foot osteo requiring BKA by Dr. 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 See ID PPX: - Hold morning dose of heparin - Will defer to operating team for heparin orders FEN (Fluids, electrolytes, nutrition): - 150mL/hour NS - Renal diet Dispo: - OR, continue abx - Appreciate nephro's continued recs Visit type - Emergency Visit Emergency Visit: Yes ED Registration Date: 03/18/17 Care time: The patient presented to the Emergency Department on the above date and was hospitalized for further evaluation of their emergent condition. - New Patient This patient is new to me today: No - Critical Care Critical Care patient: Yes Total Critical Care Time (in minutes): 50 Critical Care Statement: The care of this patient involved high complexity decision making to prevent further life threatening deterioration of the patient 's condition and/or to evaluate & treat vital organ system(s) failure or risk of failure.
[2017-03-20] MEDS ORDERED: ALBUTEROL SO4 0.083% IH SOL 2.5 MG/3 ML VIAL.NEB. NEB PRN (13:22)
[2017-03-20] MEDS: morphine SULFATE 4 MG/ML VIAL IVPUSH PRN ×2 (16:40→21:47)
[2017-03-20] MEDS: INSULIN DETEMIR 100 UNITS/ML MDV SQ SCH (17:38)
--- NOTE | 2017-03-20 18:07 | PN ---
Progress Note, Physician History of Present Illness: s/p surgery - Current Medication List Current Medications: Active Medications Albuterol Sulfate (Ventolin 0.083% Nebulizer Soln -) 1 amp NEB Q4H PRN PRN Reason: SHORT OF BREATH/WHEEZING Amlodipine Besylate (Norvasc -) 10 mg PO DAILY [facility] Chlorhexidine Gluconate (Hibiclens For Decolonization -) 1 applic TP HS [facility] Doxazosin Mesylate (Cardura -) 4 mg PO DAILY [facility] Duloxetine HCl (Cymbalta -) 30 mg PO DAILY [facility] Folic Acid (Folic Acid -) 1 mg PO DAILY [facility] Heparin Sodium (Porcine) (Heparin -) 5,000 unit SQ BID [facility] Piperacillin Sod/Tazobactam (Sod 2.25 gm/ Dextrose) 50 mls @ 100 mls/hr IVPB Q8H-IV IGGY Last Admin: 03/20/17 17:26 Dose: 100 mls/hr Sodium Chloride (Normal Saline -) 1,000 mls @ 150 mls/hr IV ASDIR [facility] Insulin Aspart (Novolog Vial Sliding Scale -) 1 vial SQ ACHS IGGY PRN Reason: Protocol Last Admin: 03/20/17 17:25 Dose: 6 units Insulin Detemir (Levemir Vial) 15 units SQ BID@0700,1630 [facility] Last Admin: 03/20/17 17:38 Dose: 15 units Metoprolol Tartrate (Lopressor -) 50 mg PO BID [facility] Mirtazapine (Remeron -) 30 mg PO HS [facility] Morphine Sulfate (Morphine Sulfate) 4 mg IVPUSH Q6H PRN PRN Reason: PAIN Last Admin: 03/20/17 16:40 Dose: 4 mg Mupirocin (Bactroban Ointment (For Decolonization) -) 1 applic NS BID [facility] Stop: 03/25/17 21:59 Sodium Bicarbonate (Sodium Bicarbonate -) 1,300 mg PO BID [facility] Trazodone HCl (Desyrel -) 300 mg PO [facility] - Objective Vital Signs: Vital Signs Temperature 97.6 F 03/20/17 16:00 Pulse Rate 75 03/20/17 16:00 Respiratory Rate 15 03/20/17 16:00 Blood Pressure 107/64 03/20/17 16:00 O2 Sat by Pulse Oximetry (%) 96 03/20/17 12:45 Constitutional: Yes: No Distress HENT: Yes: Atraumatic Neck: Yes: Supple Cardiovascular: Yes: Regular Rate and Rhythm Respiratory: Yes: CTA Bilaterally Gastrointestinal: Yes: Normal Bowel Sounds Extremities: Yes: WNL Neurological: Yes: Alert, Babinski negative Labs: CBC, BMP 03/20/17 05:10 03/20/17 05:10 INR, PTT INR 1.14 (0.82-1.09) 03/18/17 17:50 Problem List - Problems (1) ARF (acute renal failure) Assessment/Plan: on hd dr mendoza Code(s): N17.9 - ACUTE KIDNEY FAILURE, UNSPECIFIED Qualifiers: Acute renal failure type: unspecified Qualified Code(s): N17.9 - Acute kidney failure, unspecified (2) Hyperkalemia Assessment/Plan: on hd..will improve Code(s): E87.5 - HYPERKALEMIA (3) Hyponatremia Assessment/Plan: monitor ..on hd Code(s): E87.1 - HYPO-OSMOLALITY AND HYPONATREMIA (4) Syncope Assessment/Plan: resolved Code(s): R55 - SYNCOPE AND COLLAPSE Qualifiers: Syncope type: unspecified Qualified Code(s): R55 - Syncope and collapse (5) 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 Code(s): E11.9 - TYPE 2 DIABETES MELLITUS WITHOUT COMPLICATIONS Qualifiers: 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 type: type 2 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 complication status: without complication 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 terminal manager insulin use: without terminal manager use Qualified Code(s): E11.9 - Type 2 diabetes mellitus without complications (6) GERD (gastroesophageal reflux disease) Code(s): K21.9 - GASTRO-ESOPHAGEAL REFLUX DISEASE WITHOUT ESOPHAGITIS (7) HTN (hypertension) Code(s): I10 - ESSENTIAL (PRIMARY) HYPERTENSION Qualifiers: Hypertension type: essential hypertension Qualified Code(s): I10 - Essential (primary) hypertension (8) Type 2 diabetes mellitus with foot ulcer Code(s): E11.621 - TYPE 2 DIABETES MELLITUS WITH FOOT ULCER; L97.509 - NON- PRESSURE CHRONIC ULCER OTH PRT UNSP FOOT W UNSP SEVERITY
--- NOTE | 2017-03-20 18:42 | PN ---
Progress Note, Physician History of Present Illness: patient looks much better post op comfortable no complaints amputation done upto ankle - Current Medication List Current Medications: Active Medications Albuterol Sulfate (Ventolin 0.083% Nebulizer Soln -) 1 amp NEB Q4H PRN PRN Reason: SHORT OF BREATH/WHEEZING Amlodipine Besylate (Norvasc -) 10 mg PO DAILY [facility] Chlorhexidine Gluconate (Hibiclens For Decolonization -) 1 applic TP HS [facility] Doxazosin Mesylate (Cardura -) 4 mg PO DAILY [facility] Duloxetine HCl (Cymbalta -) 30 mg PO DAILY [facility] Folic Acid (Folic Acid -) 1 mg PO DAILY [facility] Heparin Sodium (Porcine) (Heparin -) 5,000 unit SQ BID [facility] Piperacillin Sod/Tazobactam (Sod 2.25 gm/ Dextrose) 50 mls @ 100 mls/hr IVPB Q8H-IV IGGY Last Admin: 03/20/17 17:26 Dose: 100 mls/hr Sodium Chloride (Normal Saline -) 1,000 mls @ 150 mls/hr IV ASDIR [facility] Insulin Aspart (Novolog Vial Sliding Scale -) 1 vial SQ ACHS IGGY PRN Reason: Protocol Last Admin: 03/20/17 17:25 Dose: 6 units Insulin Detemir (Levemir Vial) 15 units SQ BID@0700,1630 [facility] Last Admin: 03/20/17 17:38 Dose: 15 units Metoprolol Tartrate (Lopressor -) 50 mg PO BID [facility] Mirtazapine (Remeron -) 30 mg PO HS [facility] Morphine Sulfate (Morphine Sulfate) 4 mg IVPUSH Q6H PRN PRN Reason: PAIN Last Admin: 03/20/17 16:40 Dose: 4 mg Mupirocin (Bactroban Ointment (For Decolonization) -) 1 applic NS BID [facility] Stop: 03/25/17 21:59 Sodium Bicarbonate (Sodium Bicarbonate -) 1,300 mg PO BID [facility] Trazodone HCl (Desyrel -) 300 mg PO HS [facility] - Objective Vital Signs: Vital Signs Temperature 97.6 F 03/20/17 18:00 Pulse Rate 84 03/20/17 18:00 Respiratory Rate 16 03/20/17 18:00 Blood Pressure 124/60 03/20/17 18:00 O2 Sat by Pulse Oximetry (%) 96 03/20/17 12:45 Constitutional: Yes: No Distress, Calm Cardiovascular: Yes: Regular Rate and Rhythm Respiratory: Yes: Regular, CTA Bilaterally Gastrointestinal: Yes: Normal Bowel Sounds, Soft Musculoskeletal: Yes: Other Extremities: Yes: Other Wound/Incision: Yes: Dressing Dry and Intact Neurological: Yes: Alert, Oriented Psychiatric: Yes: Alert, Oriented Labs: CBC, BMP 03/20/17 05:10 03/20/17 05:10 INR, PTT INR 1.14 (0.82-1.09) 03/18/17 17:50 Assessment/Plan Problem List - Problems (1) ARF (acute renal failure) Code(s): N17.9 - ACUTE KIDNEY FAILURE, UNSPECIFIED Qualifiers: Acute renal failure type: unspecified Qualified Code(s): N17.9 - Acute kidney failure, unspecified (2) Hyperkalemia Code(s): E87.5 - HYPERKALEMIA (3) Hyponatremia Code(s): E87.1 - HYPO-OSMOLALITY AND HYPONATREMIA (4) Syncope Code(s): R55 - SYNCOPE AND COLLAPSE Qualifiers: Syncope type: unspecified Qualified Code(s): R55 - Syncope and collapse (5) 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 Code(s): E11.9 - TYPE 2 DIABETES MELLITUS WITHOUT COMPLICATIONS Qualifiers: 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 type: type 2 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 complication status: without complication 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 middle or intermediate school principal insulin use: without middle or intermediate school principal use Qualified Code(s): E11.9 - Type 2 diabetes mellitus without complications (6) GERD (gastroesophageal reflux disease) Code(s): K21.9 - GASTRO-ESOPHAGEAL REFLUX DISEASE WITHOUT ESOPHAGITIS (7) HTN (hypertension) Code(s): I10 - ESSENTIAL (PRIMARY) HYPERTENSION Qualifiers: Hypertension type: essential hypertension Qualified Code(s): I10 - Essential (primary) hypertension (8) Type 2 diabetes mellitus with foot ulcer Code(s): E11.621 - TYPE 2 DIABETES MELLITUS WITH FOOT ULCER; L97.509 - NON- PRESSURE CHRONIC ULCER OTH PRT UNSP FOOT W UNSP SEVERITY patient with multiple medical problems septic with positive blood cx with the source of his infection is his foot whish is planned to be amputated once patient stabilizespatient currently lethargic plan conitnue abx cx result noted stop vanco continue zosyn rest as per icu cc time 40 min
[2017-03-20 20:04] LABS: MCH 28.3 pg (25.7-33.7); MCHC 34.7 g/dl (32.0-35.9); MEAN CELL VOLUME 81.7 fl (80-96); MEAN PLT VOLUME 8.2 fl (7.5-11.1); PLATELET COUNT 374 K/MM3 (134-434); RDW 16.9 % (11.9-15.9); WHITE BLOOD COUNT 15.4 K/mm3 (4.0-10.0)
[2017-03-20] MEDS ORDERED: PT OWN MED DRAWER 7, Y5N ONE (21:39)
[2017-03-20] MEDS: traZODone HCL 100 MG TABLET (FP) PO SCH (21:40)
[2017-03-20] MEDS: MIRTAZAPINE 30 MG TABLET (FP) PO SCH (21:41)
--- NOTE | 2017-03-20 21:44 | PN ---
Progress Note (short form) - Note Progress Note: Patient s/p resection of distal leg to resolve severe infection of the LLE. Patient doing well emotionally. Right foot stable but will need attention. Xray ordered to r/o osteomyelitis and will intervene with wound debridement once the emergent condtion of the left limb is resolved
[2017-03-20] MEDS: MUPIROCIN 2% TOPICAL OINTMENT FOR DECOLONIZATION NS SCH (21:54)
[2017-03-20] MEDS: CHLORHEXIDINE GLUCONATE 4% CLEANSER FOR DECOLONIZATION TP SCH (21:55)
[2017-03-21] MEDS: PIPERACILLIN/TAZOB 2.25 GM 2.25 GM in DEXTROSE 5%-WATER - 50 ML IVPB SCH ×2 (01:06→10:09)
[2017-03-21] MEDS: INSULIN DETEMIR 100 UNITS/ML MDV SQ SCH ×2 (06:01→16:31)
[2017-03-21] MEDS: INSULIN SLIDING SCALE (NOVOLOG) 1 VIAL SQ SCH ×4 (06:01→22:29)
[2017-03-21 07:08] LABS: MCH 27.7 pg (25.7-33.7); MCHC 34.3 g/dl (32.0-35.9); MEAN CELL VOLUME 80.7 fl (80-96); MEAN PLT VOLUME 8.2 fl (7.5-11.1); PLATELET COUNT 354 K/MM3 (134-434); WHITE BLOOD COUNT 16.7 K/mm3 (4.0-10.0)
[2017-03-21 07:12] LABS: ALBUMIN 1.3 g/dl (3.4-5.0); ANION GAP 8 (8-16); CO2 26 mmol/L (21-32); GLUCOSE,RANDOM 82 mg/dL (74-106); MAGNESIUM 1.6 mg/dL (1.8-2.4); PHOSPHOROUS 5.7 mg/dL (2.5-4.9); SGOT/AST 5 U/L (15-37)
[2017-03-21 07:15] LABS: ALK PHOS 109 U/L (45-117); BILIRUBIN,TOTAL 0.3 mg/dL (0.2-1.0); CREATININE 4.8 mg/dL (0.7-1.3); SGPT/ALT 9 U/L (12-78); TOT PROT 4.8 g/dl (6.4-8.2)
[2017-03-21 07:18] LABS: CALCIUM 6.6 mg/dL (8.5-10.1)
[2017-03-21 09:21] LABS: METAMYELOCYTE 2 % (0-2); MYELOCYTE 2 % (0-2); TOTAL CELLS COUNTED 100
[2017-03-21 09:22] LABS: PLATELET ESTIMATE SLT INCREASE
[2017-03-21] MEDS ORDERED: MAGNESIUM SULF 50% (8.12 MEQ/2 ML-1 GM VIAL) IVPB ONE (09:35)
[2017-03-21] MEDS ORDERED: PT OWN MED DRAWER 7, Y5N ONE ×4 (10:04→22:13)
[2017-03-21] MEDS: METOPROLOL TARTRATE 25 MG TABLET (FP) PO SCH ×2 (10:07→22:14)
[2017-03-21] MEDS: HEPARIN NA (PORCINE) 5,000 UNITS/ML 1ML VIAL SQ SCH ×2 (10:07→22:14)
[2017-03-21] MEDS: SODIUM BICARBONATE 650 MG TABLET PO SCH ×2 (10:08→22:15)
[2017-03-21] MEDS: DULoxetine HCL 30 MG CAPSULE.DR (FP) PO SCH (10:08)
[2017-03-21] MEDS: amLODIPine BESYLATE 10 MG TABLET (FP) PO SCH (10:08)
[2017-03-21] MEDS: FOLIC ACID 1 MG TABLET (FP) PO SCH (10:08)
[2017-03-21] MEDS: DOXAZOSIN MESYLATE 4 MG TABLET PO SCH (10:09)
[2017-03-21] MEDS: MUPIROCIN 2% TOPICAL OINTMENT FOR DECOLONIZATION NS SCH ×2 (10:11→22:11)
[2017-03-21] MEDS: morphine SULFATE 4 MG/ML VIAL IVPUSH PRN ×3 (10:13→22:15)
--- NOTE | 2017-03-21 10:35 | PN ---
Progress Note (short form) - Note Progress Note: Renal Follow up for FROYLAN on CKD Pt seen and examined in the ICU awake and alert s/p OR and HD yesterday no acute complaints making urine via tobias Vital Signs Temperature 97.8 F 03/21/17 06:00 Pulse Rate 74 03/21/17 08:00 Respiratory Rate 18 03/21/17 08:00 Blood Pressure 117/70 03/21/17 08:00 O2 Sat by Pulse Oximetry (%) 94 L 03/20/17 19:33 Intake & Output 03/18/17 03/19/17 03/20/17 03/21/17 23:59 23:59 23:59 23:59 Intake Total 600 4397.4 5690 1900 Output Total 200 1200 420 300 Balance 400 3197.4 5270 1600 Weight 81.703 kg 81.703 kg 87.572 kg 86.891 kg NAD awake and alert RRR Dec Bs at lung bases, no rales soft NT/ND Trace to 1+ Le edema left foot in dressing, bloody CBC, BMP 03/21/17 05:35 03/21/17 05:35 Laboratory Tests 03/21/17 05:35 Phosphorus 5.7 H Magnesium 1.6 L Albumin 1.3 L Current Medications Albuterol Sulfate (Ventolin 0.083% Nebulizer Soln -) 1 amp NEB Q4H PRN PRN Reason: SHORT OF BREATH/WHEEZING Amlodipine Besylate (Norvasc -) 10 mg PO DAILY [facility] Last Admin: 03/21/17 10:08 Dose: 10 mg Chlorhexidine Gluconate (Hibiclens For Decolonization -) 1 applic TP HS [facility] Last Admin: 03/20/17 21:55 Dose: 1 applic Doxazosin Mesylate (Cardura -) 4 mg PO DAILY [facility] Last Admin: 03/21/17 10:09 Dose: 4 mg Duloxetine HCl (Cymbalta -) 30 mg PO DAILY [facility] Last Admin: 03/21/17 10:08 Dose: 30 mg Folic Acid (Folic Acid -) 1 mg PO DAILY [facility] Last Admin: 03/21/17 10:08 Dose: 1 mg Heparin Sodium (Porcine) (Heparin -) 5,000 unit SQ BID [facility] Last Admin: 03/21/17 10:07 Dose: 5,000 unit Piperacillin Sod/Tazobactam (Sod 2.25 gm/ Dextrose) 50 mls @ 100 mls/hr IVPB Q8H-IV IGGY Last Admin: 03/21/17 10:09 Dose: 100 mls/hr Sodium Chloride (Normal Saline -) 1,000 mls @ 83 mls/hr IV ASDIR IGG[facility] Insulin Aspart (Novolog Vial Sliding Scale -) 1 vial SQ ACHS IGGY PRN Reason: Protocol Last Admin: 03/21/17 06:01 Dose: Not Given Insulin Detemir (Levemir Vial) 15 units SQ BID@0700,1630 [facility] Last Admin: 03/21/17 06:01 Dose: 15 units Metoprolol Tartrate (Lopressor -) 50 mg PO BID [facility] Last Admin: 03/21/17 10:07 Dose: 50 mg Mirtazapine (Remeron -) 30 mg PO HS [facility] Last Admin: 03/20/17 21:41 Dose: 30 mg Morphine Sulfate (Morphine Sulfate) 4 mg IVPUSH Q6H PRN PRN Reason: PAIN Last Admin: 03/21/17 10:13 Dose: 4 mg Mupirocin (Bactroban Ointment (For Decolonization) -) 1 applic NS BID [facility] Stop: 03/25/17 21:59 Last Admin: 03/21/17 10:11 Dose: 1 applic Sodium Bicarbonate (Sodium Bicarbonate -) 1,300 mg PO BID [facility] Last Admin: 03/21/17 10:08 Dose: 1,300 mg Trazodone HCl (Desyrel -) 300 mg PO HS [facility] Last Admin: 03/20/17 21:40 Dose: 300 mg 61 year old gentleman with PMhx of CKD stage 4 (baseline Cr 2.8), Hypertension , DM, PVD, Depression who presented with syncope and found to have acute on chronic renal failure with hyperkalemia and hyponatremia. 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 at the present time will trend BUN/Cr #Leukocytosis/Sepsis continue Abx as per ID s/p left foot amputation #Acute on Chronic anemia transfuse prbc as per ICU protocol Miguel Jansen DO Problem List - Problems (1) Hyponatremia Code(s): E87.1 - HYPO-OSMOLALITY AND HYPONATREMIA (2) ARF (acute renal failure) Code(s): N17.9 - ACUTE KIDNEY FAILURE, UNSPECIFIED Qualifiers: Acute renal failure type: unspecified Qualified Code(s): N17.9 - Acute kidney failure, unspecified (3) Hyperkalemia Code(s): E87.5 - HYPERKALEMIA (4) Syncope Code(s): R55 - SYNCOPE AND COLLAPSE Qualifiers: Syncope type: unspecified Qualified Code(s): R55 - Syncope and collapse (5) FROYLAN (acute kidney injury) Code(s): N17.9 - ACUTE KIDNEY FAILURE, UNSPECIFIED
[2017-03-21] MEDS: SODIUM CHLORIDE 1,000 ML IV SCH (10:49)
--- NOTE | 2017-03-21 11:43 | PN ---
Physical Exam: SUBJECTIVE: Patient seen and examined at bedside. No overnight events. No new complaints. Is having some pain in left lower ext. He had a bowel movement this morning. Denies CP,PEREZ, SOB, Abdominal pain, N/V. OBJECTIVE: Vital Signs Period Temp Pulse Resp BP Sys/Gutierrez Pulse Ox Last 24 Hr 97.6 F-98.4 F 65-84 11-20 95-124/58-71 94-96 GENERAL: AAOx3, NAD HEAD: NC/AT EYES:PERRLA,EOMI ENT:moist mucous membranes. NECK: supple. no jvd LUNGS: CTAB, no wheezes, no crackles, no accessory muscle use. HEART:RRR, no m/g/r ABDOMEN: Soft, nt/nd, normoactive bowel sounds, EXTREMITIES: s/p amputation of left foot. wound bandaged and appears clean and dry. NEUROLOGICAL: CN II-XII grossly intact. PSYCH: Normal mood, normal affect. SKIN: Warm, dry, normal turgor, no rashes or lesions noted Laboratory Results - last 24 hr 03/18/17 03/18/17 03/19/17 17:50 23:10 15:45 WBC RBC Hgb Hct MCV MCH MCHC RDW Plt Count MPV Total Counted Neutrophils % Neutrophils % (Manual) Lymphocytes % Lymphocytes % (Manual) Monocytes % (Manual) Myelocytes % (Man) Metamyelocytes Platelet Estimate Sodium Potassium Chloride Carbon Dioxide Anion Gap BUN Creatinine Creat Clearance w eGFR POC Glucometer Random Glucose Calcium Phosphorus Magnesium Total Bilirubin AST ALT Alkaline Phosphatase Total Protein Albumin Urine Eosinophils None seen Hepatitis A Ab Total Positive abnormal Hep Bs Antigen Negative Hep Bs Antibody Reactive Hep B Core Total Ab Positive abnormal Blood Type B POSITIVE Antibody Screen Negative Crossmatch See Detail 03/20/17 03/20/17 03/20/17 11:58 16:45 19:25 WBC 15.4 H RBC 3.02 L Hgb 8.6 L D Hct 24.7 L MCV 81.7 MCH 28.3 MCHC 34.7 RDW 16.9 H Plt Count 374 MPV 8.2 Total Counted Neutrophils % Neutrophils % (Manual) Lymphocytes % Lymphocytes % (Manual) Monocytes % (Manual) Myelocytes % (Man) Metamyelocytes Platelet Estimate Sodium Potassium Chloride Carbon Dioxide Anion Gap BUN Creatinine Creat Clearance w eGFR POC Glucometer [phone] Random Glucose Calcium Phosphorus Magnesium Total Bilirubin AST ALT Alkaline Phosphatase Total Protein Albumin Urine Eosinophils Hepatitis A Ab Total Hep Bs Antigen Hep Bs Antibody Hep B Core Total Ab Blood Type Antibody Screen Crossmatch 03/20/17 03/21/17 03/21/17 21:21 05:35 05:35 WBC 16.7 H RBC 2.98 L Hgb 8.2 L Hct 24.0 L MCV 80.7 MCH 27.7 MCHC 34.3 RDW 17.0 H Plt Count 354 MPV 8.2 Total Counted 100 Neutrophils % No Result Required. Neutrophils % (Manual) 74.0 Lymphocytes % No Result Required. Lymphocytes % (Manual) 14.0 D Monocytes % (Manual) 8 D Myelocytes % (Man) 2 Metamyelocytes 2 D Platelet Estimate Slt increase Sodium 141 Potassium 4.0 Chloride 107 Carbon Dioxide 26 Anion Gap 8 BUN 67 H D Creatinine 4.8 H D Creat Clearance w eGFR 12.43 POC Glucometer [phone] Random Glucose 82 D Calcium 6.6 L* Phosphorus 5.7 H Magnesium 1.6 L Total Bilirubin 0.3 D AST 5 L D ALT 9 L Alkaline Phosphatase 109 D Total Protein 4.8 L Albumin 1.3 L Urine Eosinophils Hepatitis A Ab Total Hep Bs Antigen Hep Bs Antibody Hep B Core Total Ab Blood Type Antibody Screen Crossmatch 03/21/17 03/21/17 05:53 10:43 WBC RBC Hgb Hct MCV MCH MCHC RDW Plt Count MPV Total Counted Neutrophils % Neutrophils % (Manual) Lymphocytes % Lymphocytes % (Manual) Monocytes % (Manual) Myelocytes % (Man) Metamyelocytes Platelet Estimate Sodium Potassium Chloride Carbon Dioxide Anion Gap BUN Creatinine Creat Clearance w eGFR POC Glucometer [phone] Random Glucose Calcium Phosphorus Magnesium Total Bilirubin AST ALT Alkaline Phosphatase Total Protein Albumin Urine Eosinophils Hepatitis A Ab Total Hep Bs Antigen Hep Bs Antibody Hep B Core Total Ab Blood Type Antibody Screen Crossmatch Active Medications Generic Name Dose Route Start Last Admin Trade Name Freq PRN Reason Stop Dose Admin Albuterol Sulfate 1 amp 03/20/17 13:22 Ventolin 0.083% Nebulizer Soln - NEB Q4H PRN SHORT OF BREATH/WHEEZING Amlodipine Besylate 10 mg 03/21/17 10:00 03/21/17 10:08 Norvasc - PO 10 mg DAILY IGGY Administration Chlorhexidine Gluconate 1 applic 03/20/17 22:00 03/20/17 21:55 Hibiclens For Decolonization - TP 1 applic HS IGGY Administration Doxazosin Mesylate 4 mg 03/21/17 10:00 03/21/17 10:09 Cardura - PO 4 mg DAILY IGGY Administration Duloxetine HCl 30 mg 03/21/17 10:00 03/21/17 10:08 Cymbalta - PO 30 mg DAILY IGGY Administration Folic Acid 1 mg 03/21/17 10:00 03/21/17 10:08 Folic Acid - PO 1 mg DAILY IGGY Administration Heparin Sodium (Porcine) 5,000 unit 03/20/17 22:00 03/21/17 10:07 Heparin - SQ 5,000 unit BID IGGY Administration Piperacillin Sod/Tazobactam 50 mls @ 100 mls/hr 03/20/17 18:00 03/21/17 10:09 Sod 2.25 gm/ Dextrose IVPB 100 mls/hr Q8H-IV IGGY Administration Sodium Chloride 1,000 mls @ 83 mls/hr 03/21/17 10:32 03/21/17 10:49 Normal Saline - IV 83 mls/hr ASDIR IGGY Administration Insulin Aspart 1 vial 03/20/17 16:30 03/21/17 10:49 Novolog Vial Sliding Scale - SQ 2 units ACHS IGGY Administration Protocol Insulin Detemir 15 units 03/20/17 16:30 03/21/17 06:01 Levemir Vial SQ 15 units BID@0700,1630 IGGY Administration Metoprolol Tartrate 50 mg 03/20/17 22:00 03/21/17 10:07 Lopressor - PO 50 mg BID IGGY Administration Mirtazapine 30 mg 03/20/17 22:00 03/20/17 21:41 Remeron - PO 30 mg HS IGGY Administration Morphine Sulfate 4 mg 03/20/17 13:22 03/21/17 10:13 Morphine Sulfate IVPUSH 4 mg Q6H PRN Administration PAIN Mupirocin 1 applic 03/20/17 22:00 03/21/17 10:11 Bactroban Ointment (For Decolonization) - NS 03/25/17 21:59 1 applic BID IGGY Administration Oxycodone/Acetaminophen 2 combo 03/21/17 11:08 Percocet 5/325 - PO Q4H PRN PAIN LEVEL 6-10 Sodium Bicarbonate 1,300 mg 03/20/17 22:00 03/21/17 10:08 Sodium Bicarbonate - PO 1,300 mg BID IGGY Administration Trazodone HCl 300 mg 03/20/17 22:00 03/20/17 21:40 Desyrel - PO 300 mg HS IGGY Administration ASSESSMENT/PLAN: 61 year old gentleman with PMhx of CKD stage 4 (baseline Cr 2.8), Hypertension, DM, PVD, Depression who presented with syncope found to be severely septic with FROYLAN s/p left foot amputation. Neuro: - A&Ox3 - At baseline CV: - EKG showing 1st degree heart block, unchanged from September 2016 EKG Pulm: - None Renal: - Stage 4 CKD, Cr .and bun continue to improve. : - Serna in place; making appropriate urine GI: - None ID: - Osteo of L foot; guillotine amputation done 03/20/[address] Daly. Will let drain until Saturday. - Continue vanc with renal dosing - Continue Zosyn Hem/Onc: - Had 2 units PRBC post op with appropriate response. Endocrine: - Insulin dependent diabetic - Continue ISS and Levamir MSK - L foot osteo requiring BKA by Dr. 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 See ID PPX: - heparin SQ FEN (Fluids, electrolytes, nutrition): - 83mL/hour NS - Renal diet Dispo: -Continue to monitor in ICU. Visit type - Emergency Visit Emergency Visit: Yes ED Registration Date: 03/18/17 Care time: The patient presented to the Emergency Department on the above date and was hospitalized for further evaluation of their emergent condition. - New Patient This patient is new to me today: Yes Date on this admission: 03/22/17 - Critical Care Critical Care patient: No
--- NOTE | 2017-03-21 12:18 | PN ---
Physical Exam: SUBJECTIVE: Patient seen and examined at bedside. He was having significant work of breathing. He stated that he felt that he was not getting enough oxygen. Denies CP,PEREZ, abdominal pain, N/V. OBJECTIVE: Vital Signs Period Temp Pulse Resp BP Sys/Gutierrez Pulse Ox Last 24 Hr 97.6 F-98.4 F 63-84 11-20 99-125/60-77 94-96 GENERAL: AAOx3, moderate distress HEAD: NC/AT. EYES: PERRL, EOMI, sclera anicteric, conjunctiva clear. No ptosis. ENT: moist mucous membranes. NECK: supple, no jvd LUNGS:Coarse breath sounds, scattered wheezes, crackles, (+)accessory muscle use. HEART:Tachycardic, S1, S2 without murmur, rub or gallop. ABDOMEN: Soft, NT/ND, normoactive bowel sounds, no guarding, no rebound, no hepatosplenomegaly, no masses. EXTREMITIES: 2+ pulses, warm, well-perfused, no edema. NEUROLOGICAL: Cranial nerves II through XII grossly intact. difficultly speaking in complete sentences. PSYCH: anxious SKIN: Warm, dry, normal turgor, no rashes or lesions noted Laboratory Results - last 24 hr 03/18/17 03/18/17 03/19/17 17:50 23:10 15:45 WBC RBC Hgb Hct MCV MCH MCHC RDW Plt Count MPV Total Counted Neutrophils % Neutrophils % (Manual) Lymphocytes % Lymphocytes % (Manual) Monocytes % (Manual) Myelocytes % (Man) Metamyelocytes Platelet Estimate Sodium Potassium Chloride Carbon Dioxide Anion Gap BUN Creatinine Creat Clearance w eGFR POC Glucometer Random Glucose Calcium Phosphorus Magnesium Total Bilirubin AST ALT Alkaline Phosphatase Total Protein Albumin Urine Eosinophils None seen Hepatitis A Ab Total Positive abnormal Hep Bs Antigen Negative Hep Bs Antibody Reactive Hep B Core Total Ab Positive abnormal Blood Type B POSITIVE Antibody Screen Negative Crossmatch See Detail 03/20/17 03/20/17 03/20/17 11:58 16:45 19:25 WBC 15.4 H RBC 3.02 L Hgb 8.6 L D Hct 24.7 L MCV 81.7 MCH 28.3 MCHC 34.7 RDW 16.9 H Plt Count 374 MPV 8.2 Total Counted Neutrophils % Neutrophils % (Manual) Lymphocytes % Lymphocytes % (Manual) Monocytes % (Manual) Myelocytes % (Man) Metamyelocytes Platelet Estimate Sodium Potassium Chloride Carbon Dioxide Anion Gap BUN Creatinine Creat Clearance w eGFR POC Glucometer [phone] Random Glucose Calcium Phosphorus Magnesium Total Bilirubin AST ALT Alkaline Phosphatase Total Protein Albumin Urine Eosinophils Hepatitis A Ab Total Hep Bs Antigen Hep Bs Antibody Hep B Core Total Ab Blood Type Antibody Screen Crossmatch 03/20/17 03/21/17 03/21/17 21:21 05:35 05:35 WBC 16.7 H RBC 2.98 L Hgb 8.2 L Hct 24.0 L MCV 80.7 MCH 27.7 MCHC 34.3 RDW 17.0 H Plt Count 354 MPV 8.2 Total Counted 100 Neutrophils % No Result Required. Neutrophils % (Manual) 74.0 Lymphocytes % No Result Required. Lymphocytes % (Manual) 14.0 D Monocytes % (Manual) 8 D Myelocytes % (Man) 2 Metamyelocytes 2 D Platelet Estimate Slt increase Sodium 141 Potassium 4.0 Chloride 107 Carbon Dioxide 26 Anion Gap 8 BUN 67 H D Creatinine 4.8 H D Creat Clearance w eGFR 12.43 POC Glucometer [phone] Random Glucose 82 D Calcium 6.6 L* Phosphorus 5.7 H Magnesium 1.6 L Total Bilirubin 0.3 D AST 5 L D ALT 9 L Alkaline Phosphatase 109 D Total Protein 4.8 L Albumin 1.3 L Urine Eosinophils Hepatitis A Ab Total Hep Bs Antigen Hep Bs Antibody Hep B Core Total Ab Blood Type Antibody Screen Crossmatch 03/21/17 03/21/17 05:53 10:43 WBC RBC Hgb Hct MCV MCH MCHC RDW Plt Count MPV Total Counted Neutrophils % Neutrophils % (Manual) Lymphocytes % Lymphocytes % (Manual) Monocytes % (Manual) Myelocytes % (Man) Metamyelocytes Platelet Estimate Sodium Potassium Chloride Carbon Dioxide Anion Gap BUN Creatinine Creat Clearance w eGFR POC Glucometer 109.31173 [phone] Random Glucose Calcium Phosphorus Magnesium Total Bilirubin AST ALT Alkaline Phosphatase Total Protein Albumin Urine Eosinophils Hepatitis A Ab Total Hep Bs Antigen Hep Bs Antibody Hep B Core Total Ab Blood Type Antibody Screen Crossmatch Active Medications Generic Name Dose Route Start Last Admin Trade Name Freq PRN Reason Stop Dose Admin Acetaminophen 650 mg 03/21/17 11:16 Tylenol - PO 03/24/17 11:15 Q4H PRN PAIN 6-10 Albuterol Sulfate 1 amp 03/20/17 13:22 Ventolin 0.083% Nebulizer Soln - NEB Q4H PRN SHORT OF BREATH/WHEEZING Amlodipine Besylate 10 mg 03/21/17 10:00 03/21/17 10:08 Norvasc - PO 10 mg DAILY IGGY Administration Chlorhexidine Gluconate 1 applic 03/20/17 22:00 03/20/17 21:55 Hibiclens For Decolonization - TP 1 applic HS IGGY Administration Doxazosin Mesylate 4 mg 03/21/17 10:00 03/21/17 10:09 Cardura - PO 4 mg DAILY IGGY Administration Duloxetine HCl 30 mg 03/21/17 10:00 03/21/17 10:08 Cymbalta - PO 30 mg DAILY IGGY Administration Folic Acid 1 mg 03/21/17 10:00 03/21/17 10:08 Folic Acid - PO 1 mg DAILY IGGY Administration Heparin Sodium (Porcine) 5,000 unit 03/20/17 22:00 03/21/17 10:07 Heparin - SQ 5,000 unit BID IGGY Administration Piperacillin Sod/Tazobactam 50 mls @ 100 mls/hr 03/20/17 18:00 03/21/17 10:09 Sod 2.25 gm/ Dextrose IVPB 100 mls/hr Q8H-IV IGGY Administration Sodium Chloride 1,000 mls @ 83 mls/hr 03/21/17 10:32 03/21/17 10:49 Normal Saline - IV 83 mls/hr ASDIR IGGY Administration Insulin Aspart 1 vial 03/20/17 16:30 03/21/17 10:49 Novolog Vial Sliding Scale - SQ 2 units ACHS IGGY Administration Protocol Insulin Detemir 15 units 03/20/17 16:30 03/21/17 06:01 Levemir Vial SQ 15 units BID@0700,1630 IGGY Administration Metoprolol Tartrate 50 mg 03/20/17 22:00 03/21/17 10:07 Lopressor - PO 50 mg BID IGGY Administration Mirtazapine 30 mg 03/20/17 22:00 03/20/17 21:41 Remeron - PO 30 mg HS IGGY Administration Morphine Sulfate 4 mg 03/20/17 13:22 03/21/17 10:13 Morphine Sulfate IVPUSH 4 mg Q6H PRN Administration PAIN Mupirocin 1 applic 03/20/17 22:00 03/21/17 10:11 Bactroban Ointment (For Decolonization) - NS 03/25/17 21:59 1 applic BID IGGY Administration Oxycodone HCl 10 mg 03/21/17 11:16 Roxicodone - PO Q4H PRN PAIN 6-10 Sodium Bicarbonate 1,300 mg 03/20/17 22:00 03/21/17 10:08 Sodium Bicarbonate - PO 1,300 mg BID IGGY Administration Trazodone HCl 300 mg 03/20/17 22:00 03/20/17 21:40 Desyrel - PO 300 mg HS IGGY Administration ASSESSMENT/PLAN: 61 yo M with significant smoking history admitted to ICU for ARDS secondary to CAP now intubated and sedated. . Neuro: * Sedated s/p intubation. * versed and propofol CV: * BP in acceptedable range. * Will continue to monitor closely for signs of shock. * No IVF at this time. Pulmonary: * ARDS * Intubated and sedated. * AC PEEP of 10, TV 490--> will repeat ABG and reassess. maintain plataue pressure <30 * Solumedrol IV 40 Q12H * Standing Neb treatments * Propofol drip continued. ID: * Sputum culture and blood cultures pending * Continue Abx with Aztreonam and Azithromycin. * ID consult appreciated. * repeat labs in AM FEN: * No IVF at this time- not in shock and because of ARDS we would like to keep him dry. * Electrolytes wnl -->repeat labs in AM * NPO for now. Dispo: * Will continue to monitor in ICU Visit type - Emergency Visit Emergency Visit: Yes ED Registration Date: 03/18/17 Care time: The patient presented to the Emergency Department on the above date and was hospitalized for further evaluation of their emergent condition. - New Patient This patient is new to me today: Yes Date on this admission: 03/21/17 - Critical Care Critical Care patient: Yes Total Critical Care Time (in minutes): 72 Critical Care Statement: The care of this patient involved high complexity decision making to prevent further life threatening deterioration of the patient 's condition and/or to evaluate & treat vital organ system(s) failure or risk of failure.
--- NOTE | 2017-03-21 12:22 | PN ---
Progress Note, Physician History of Present Illness: patient stable no new issues no complaints comfortable - Current Medication List Current Medications: Active Medications Acetaminophen (Tylenol -) 650 mg PO Q4H PRN PRN Reason: PAIN 6-10 Stop: 03/24/17 11:15 Albuterol Sulfate (Ventolin 0.083% Nebulizer Soln -) 1 amp NEB Q4H PRN PRN Reason: SHORT OF BREATH/WHEEZING Amlodipine Besylate (Norvasc -) 10 mg PO DAILY [facility] Last Admin: 03/21/17 10:08 Dose: 10 mg Chlorhexidine Gluconate (Hibiclens For Decolonization -) 1 applic TP HS [facility] Last Admin: 03/20/17 21:55 Dose: 1 applic Doxazosin Mesylate (Cardura -) 4 mg PO DAILY [facility] Last Admin: 03/21/17 10:09 Dose: 4 mg Duloxetine HCl (Cymbalta -) 30 mg PO DAILY [facility] Last Admin: 03/21/17 10:08 Dose: 30 mg Folic Acid (Folic Acid -) 1 mg PO DAILY [facility] Last Admin: 03/21/17 10:08 Dose: 1 mg Heparin Sodium (Porcine) (Heparin -) 5,000 unit SQ BID [facility] Last Admin: 03/21/17 10:07 Dose: 5,000 unit Sodium Chloride (Normal Saline -) 1,000 mls @ 83 mls/hr IV ASDIR [facility] Last Admin: 03/21/17 10:49 Dose: 83 mls/hr Insulin Aspart (Novolog Vial Sliding Scale -) 1 vial SQ ACHS [facility] PRN Reason: Protocol Last Admin: 03/21/17 10:49 Dose: 2 units Insulin Detemir (Levemir Vial) 15 units SQ BID@0700,1630 [facility] Last Admin: 03/21/17 06:01 Dose: 15 units Meropenem (Merrem (Restricted To Id) -) 500 mg IVPB Q8H-IV IGGY Metoprolol Tartrate (Lopressor -) 50 mg PO BID [facility] Last Admin: 03/21/17 10:07 Dose: 50 mg Mirtazapine (Remeron -) 30 mg PO HS [facility] Last Admin: 03/20/17 21:41 Dose: 30 mg Morphine Sulfate (Morphine Sulfate) 4 mg IVPUSH Q6H PRN PRN Reason: PAIN Last Admin: 03/21/17 10:13 Dose: 4 mg Mupirocin (Bactroban Ointment (For Decolonization) -) 1 applic NS BID [facility] Stop: 03/25/17 21:59 Last Admin: 03/21/17 10:11 Dose: 1 applic Oxycodone HCl (Roxicodone -) 10 mg PO Q4H PRN PRN Reason: PAIN 6-10 Sodium Bicarbonate (Sodium Bicarbonate -) 1,300 mg PO BID [facility] Last Admin: 03/21/17 10:08 Dose: 1,300 mg Trazodone HCl (Desyrel -) 300 mg PO HS [facility] Last Admin: 03/20/17 21:40 Dose: 300 mg - Objective Vital Signs: Vital Signs Temperature 97.6 F 03/21/17 10:00 Pulse Rate 69 03/21/17 12:00 Respiratory Rate 20 03/21/17 12:00 Blood Pressure 111/70 03/21/17 12:00 O2 Sat by Pulse Oximetry (%) 96 03/21/17 09:00 Constitutional: Yes: No Distress, Calm Cardiovascular: Yes: Regular Rate and Rhythm Respiratory: Yes: Regular, CTA Bilaterally Gastrointestinal: Yes: Normal Bowel Sounds, Soft Musculoskeletal: Yes: Other Extremities: Yes: Other Wound/Incision: Yes: Dressing Dry and Intact, Other Neurological: Yes: Alert, Oriented Psychiatric: Yes: Alert, Oriented Labs: CBC, BMP 03/21/17 05:35 03/21/17 05:35 INR, PTT INR 1.14 (0.82-1.09) 03/18/17 17:50 Assessment/Plan Problem List - Problems (1) ARF (acute renal failure) Code(s): N17.9 - ACUTE KIDNEY FAILURE, UNSPECIFIED Qualifiers: Acute renal failure type: unspecified Qualified Code(s): N17.9 - Acute kidney failure, unspecified (2) Hyperkalemia Code(s): E87.5 - HYPERKALEMIA (3) Hyponatremia Code(s): E87.1 - HYPO-OSMOLALITY AND HYPONATREMIA (4) Syncope Code(s): R55 - SYNCOPE AND COLLAPSE Qualifiers: Syncope type: unspecified Qualified Code(s): R55 - Syncope and collapse (5) 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 Code(s): E11.9 - TYPE 2 DIABETES MELLITUS WITHOUT COMPLICATIONS Qualifiers: 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 type: type 2 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 complication status: without complication 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 longterm insulin use: without intermodal customer service use Qualified Code(s): E11.9 - Type 2 diabetes mellitus without complications (6) GERD (gastroesophageal reflux disease) Code(s): K21.9 - GASTRO-ESOPHAGEAL REFLUX DISEASE WITHOUT ESOPHAGITIS (7) HTN (hypertension) Code(s): I10 - ESSENTIAL (PRIMARY) HYPERTENSION Qualifiers: Hypertension type: essential hypertension Qualified Code(s): I10 - Essential (primary) hypertension (8) Type 2 diabetes mellitus with foot ulcer Code(s): E11.621 - TYPE 2 DIABETES MELLITUS WITH FOOT ULCER; L97.509 - NON- PRESSURE CHRONIC ULCER OTH PRT UNSP FOOT W UNSP SEVERITY patient with multiple medical problems septic with positive blood cx with the source of his infection is his foot whish is planned to be amputated once patient stabilizespatient currently lethargic plan conitnue abx cx result noted sensitivites noted will stop zosyn will switch to meropenam cc time 40 min
--- NOTE | 2017-03-21 12:25 | PN ---
Teaching Attending Note Name of Resident: Miguel Raya ATTENDING PHYSICIAN STATEMENT I saw and evaluated the patient. I reviewed the resident's note and discussed the case with the resident. I agree with the resident's findings and plan as documented. SUBJECTIVE: Patient seen and examined in the ICU. Awake and alert. POD#1 Left guillotine amputation Reports pain at the surgical site. No CP or SOB. OBJECTIVE: Intake & Output 03/18/17 03/19/17 03/20/17 03/21/17 23:59 23:59 23:59 23:59 Intake Total 600 4397.4 5690 1900 Output Total 200 1200 420 300 Balance 400 3197.4 5270 1600 Weight 180 lb 2 oz 180 lb 2 oz 193 lb 1 oz 191 lb 9 oz Last Vital Signs Temp Pulse Resp BP Pulse Ox 97.6 F 69 20 111/70 96 03/21/17 10:00 03/21/17 12:00 03/21/17 12:00 03/21/17 12:00 03/21/17 09:00 Active Medications Acetaminophen (Tylenol -) 650 mg PO Q4H PRN PRN Reason: PAIN 6-10 Stop: 03/24/17 11:15 Albuterol Sulfate (Ventolin 0.083% Nebulizer Soln -) 1 amp NEB Q4H PRN PRN Reason: SHORT OF BREATH/WHEEZING Amlodipine Besylate (Norvasc -) 10 mg PO DAILY [facility] Last Admin: 03/21/17 10:08 Dose: 10 mg Chlorhexidine Gluconate (Hibiclens For Decolonization -) 1 applic TP HS [facility] Last Admin: 03/20/17 21:55 Dose: 1 applic Doxazosin Mesylate (Cardura -) 4 mg PO DAILY [facility] Last Admin: 03/21/17 10:09 Dose: 4 mg Duloxetine HCl (Cymbalta -) 30 mg PO DAILY [facility] Last Admin: 03/21/17 10:08 Dose: 30 mg Folic Acid (Folic Acid -) 1 mg PO DAILY [facility] Last Admin: 03/21/17 10:08 Dose: 1 mg Heparin Sodium (Porcine) (Heparin -) 5,000 unit SQ BID [facility] Last Admin: 03/21/17 10:07 Dose: 5,000 unit Sodium Chloride (Normal Saline -) 1,000 mls @ 83 mls/hr IV ASDIR [facility] Last Admin: 03/21/17 10:49 Dose: 83 mls/hr Insulin Aspart (Novolog Vial Sliding Scale -) 1 vial SQ ACHS [facility] PRN Reason: Protocol Last Admin: 03/21/17 10:49 Dose: 2 units Insulin Detemir (Levemir Vial) 15 units SQ BID@0700,1630 [facility] Last Admin: 03/21/17 06:01 Dose: 15 units Metoprolol Tartrate (Lopressor -) 50 mg PO BID [facility] Last Admin: 03/21/17 10:07 Dose: 50 mg Mirtazapine (Remeron -) 30 mg PO HS [facility] Last Admin: 03/20/17 21:41 Dose: 30 mg Morphine Sulfate (Morphine Sulfate) 4 mg IVPUSH Q6H PRN PRN Reason: PAIN Last Admin: 03/21/17 10:13 Dose: 4 mg Mupirocin (Bactroban Ointment (For Decolonization) -) 1 applic NS BID [facility] Stop: 03/25/17 21:59 Last Admin: 03/21/17 10:11 Dose: 1 applic Oxycodone HCl (Roxicodone -) 10 mg PO Q4H PRN PRN Reason: PAIN 6-10 Sodium Bicarbonate (Sodium Bicarbonate -) 1,300 mg PO BID [facility] Last Admin: 03/21/17 10:08 Dose: 1,300 mg Trazodone HCl (Desyrel -) 300 mg PO [facility] Last Admin: 03/20/17 21:40 Dose: 300 mg Gen: NAD at rest Heart: RRR Lung: decreased breath sounds at the bases Abd: soft, nontender Ext: no edema, dressings intact Laboratory Results - last 24 hr 03/18/17 03/18/17 03/19/17 17:50 23:10 15:45 WBC RBC Hgb Hct MCV MCH MCHC RDW Plt Count MPV Total Counted Neutrophils % Neutrophils % (Manual) Lymphocytes % Lymphocytes % (Manual) Monocytes % (Manual) Myelocytes % (Man) Metamyelocytes Platelet Estimate Sodium Potassium Chloride Carbon Dioxide Anion Gap BUN Creatinine Creat Clearance w eGFR POC Glucometer Random Glucose Calcium Phosphorus Magnesium Total Bilirubin AST ALT Alkaline Phosphatase Total Protein Albumin Urine Eosinophils None seen Hepatitis A Ab Total Positive abnormal Hep Bs Antigen Negative Hep Bs Antibody Reactive Hep B Core Total Ab Positive abnormal Blood Type B POSITIVE Antibody Screen Negative Crossmatch See Detail 1103/20/17 03/20/17 11:58 16:45 19:25 WBC 15.4 H RBC 3.02 L Hgb 8.6 L D Hct 24.7 L MCV 81.7 MCH 28.3 MCHC 34.7 RDW 16.9 H Plt Count 374 MPV 8.2 Total Counted Neutrophils % Neutrophils % (Manual) Lymphocytes % Lymphocytes % (Manual) Monocytes % (Manual) Myelocytes % (Man) Metamyelocytes Platelet Estimate Sodium Potassium Chloride Carbon Dioxide Anion Gap BUN Creatinine Creat Clearance w eGFR POC Glucometer 182.68777 [phone] Random Glucose Calcium Phosphorus Magnesium Total Bilirubin AST ALT Alkaline Phosphatase Total Protein Albumin Urine Eosinophils Hepatitis A Ab Total Hep Bs Antigen Hep Bs Antibody Hep B Core Total Ab Blood Type Antibody Screen Crossmatch 03/20/17 03/21/17 03/21/17 21:21 05:35 05:35 WBC 16.7 H RBC 2.98 L Hgb 8.2 L Hct 24.0 L MCV 80.7 MCH 27.7 MCHC 34.3 RDW 17.0 H Plt Count 354 MPV 8.2 Total Counted 100 Neutrophils % No Result Required. Neutrophils % (Manual) 74.0 Lymphocytes % No Result Required. Lymphocytes % (Manual) 14.0 D Monocytes % (Manual) 8 D Myelocytes % (Man) 2 Metamyelocytes 2 D Platelet Estimate Slt increase Sodium 141 Potassium 4.0 Chloride 107 Carbon Dioxide 26 Anion Gap 8 BUN 67 H D Creatinine 4.8 H D Creat Clearance w eGFR 12.43 POC Glucometer 290.84146 Random Glucose 82 D Calcium 6.6 L* Phosphorus 5.7 H Magnesium 1.6 L Total Bilirubin 0.3 D AST 5 L D ALT 9 L Alkaline Phosphatase 109 D Total Protein 4.8 L Albumin 1.3 L Urine Eosinophils Hepatitis A Ab Total Hep Bs Antigen Hep Bs Antibody Hep B Core Total Ab Blood Type Antibody Screen Crossmatch 03/21/17 03/21/17 05:53 10:43 WBC RBC Hgb Hct MCV MCH MCHC RDW Plt Count MPV Total Counted Neutrophils % Neutrophils % (Manual) Lymphocytes % Lymphocytes % (Manual) Monocytes % (Manual) Myelocytes % (Man) Metamyelocytes Platelet Estimate Sodium Potassium Chloride Carbon Dioxide Anion Gap BUN Creatinine Creat Clearance w eGFR POC Glucometer 109.66101 [phone] Random Glucose Calcium Phosphorus Magnesium Total Bilirubin AST ALT Alkaline Phosphatase Total Protein Albumin Urine Eosinophils Hepatitis A Ab Total Hep Bs Antigen Hep Bs Antibody Hep B Core Total Ab Blood Type Antibody Screen Crossmatch ASSESSMENT AND PLAN: POD #1 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
[2017-03-21] MEDS ORDERED: MEROPENEM 500 MG VIAL (RESTRICTED TO ID) IVPB SCH (12:30)
[2017-03-21] MEDS ORDERED: MIDAZOLAM 100 MG in SODIUM CHLORIDE 100 ML IVPB SCH (12:30)
[2017-03-21] MEDS: oxyCODONE HCL 5 MG TABLET PO PRN (17:39)
[2017-03-21] MEDS: ACETAMINOPHEN 325 MG TABLET (FP) PO PRN (17:41)
[2017-03-21] MEDS: MEROPENEM 500 MG PUSH 500 MG/10 ML DISP.SYRIN IVPUSH SCH ×2 (18:34)
--- NOTE | 2017-03-21 18:39 | PN ---
Progress Note, Physician History of Present Illness: s/p surgery - Current Medication List Current Medications: Active Medications Acetaminophen (Tylenol -) 650 mg PO Q4H PRN PRN Reason: PAIN 6-10 Stop: 03/24/17 11:15 Last Admin: 03/21/17 17:41 Dose: 650 mg Albuterol Sulfate (Ventolin 0.083% Nebulizer Soln -) 1 amp NEB Q4H PRN PRN Reason: SHORT OF BREATH/WHEEZING Amlodipine Besylate (Norvasc -) 10 mg PO DAILY [facility] Last Admin: 03/21/17 10:08 Dose: 10 mg Chlorhexidine Gluconate (Hibiclens For Decolonization -) 1 applic TP HS [facility] Last Admin: 03/20/17 21:55 Dose: 1 applic Doxazosin Mesylate (Cardura -) 4 mg PO DAILY [facility] Last Admin: 03/21/17 10:09 Dose: 4 mg Duloxetine HCl (Cymbalta -) 30 mg PO DAILY [facility] Last Admin: 03/21/17 10:08 Dose: 30 mg Folic Acid (Folic Acid -) 1 mg PO DAILY [facility] Last Admin: 03/21/17 10:08 Dose: 1 mg Heparin Sodium (Porcine) (Heparin -) 5,000 unit SQ BID [facility] Last Admin: 03/21/17 10:07 Dose: 5,000 unit Sodium Chloride (Normal Saline -) 1,000 mls @ 83 mls/hr IV ASDIR [facility] Last Admin: 03/21/17 10:49 Dose: 83 mls/hr Meropenem (Merrem (Restricted To Id) -) 500 mg in 10 mls @ 120 mls/hr IVPUSH Q8H-IV [facility] Last Admin: 03/21/17 18:34 Dose: 120 mls/hr Insulin Aspart (Novolog Vial Sliding Scale -) 1 vial SQ ACHS [facility] PRN Reason: Protocol Last Admin: 03/21/17 16:32 Dose: 2 units Insulin Detemir (Levemir Vial) 15 units SQ BID@0700,1630 [facility] Last Admin: 03/21/17 16:31 Dose: 15 units Metoprolol Tartrate (Lopressor -) 50 mg PO BID [facility] Last Admin: 03/21/17 10:07 Dose: 50 mg Mirtazapine (Remeron -) 30 mg PO HS [facility] Last Admin: 03/20/17 21:41 Dose: 30 mg Morphine Sulfate (Morphine Sulfate) 4 mg IVPUSH Q6H PRN PRN Reason: PAIN Last Admin: 03/21/17 15:54 Dose: 4 mg Mupirocin (Bactroban Ointment (For Decolonization) -) 1 applic NS BID [facility] Stop: 03/25/17 21:59 Last Admin: 03/21/17 10:11 Dose: 1 applic Oxycodone HCl (Roxicodone -) 10 mg PO Q4H PRN PRN Reason: PAIN 6-10 Last Admin: 03/21/17 17:39 Dose: 10 mg Sodium Bicarbonate (Sodium Bicarbonate -) 1,300 mg PO BID [facility] Last Admin: 03/21/17 10:08 Dose: 1,300 mg Trazodone HCl (Desyrel -) 300 mg PO HS [facility] Last Admin: 03/20/17 21:40 Dose: 300 mg - Objective Vital Signs: Vital Signs Temperature 97.7 F 03/21/17 16:00 Pulse Rate 69 03/21/17 18:00 Respiratory Rate 18 03/21/17 18:00 Blood Pressure 112/69 03/21/17 18:00 O2 Sat by Pulse Oximetry (%) 96 03/21/17 09:00 Constitutional: Yes: No Distress HENT: Yes: Atraumatic Neck: Yes: Supple Cardiovascular: Yes: Regular Rate and Rhythm Respiratory: Yes: CTA Bilaterally Extremities: Yes: WNL Edema: Yes Neurological: Yes: Alert, Oriented Labs: CBC, BMP 03/21/17 05:35 03/21/17 05:35 INR, PTT INR 1.14 (0.82-1.09) 03/18/17 17:50 Problem List - Problems (1) ARF (acute renal failure) Assessment/Plan: on hd dr mendoza Code(s): N17.9 - ACUTE KIDNEY FAILURE, UNSPECIFIED Qualifiers: Acute renal failure type: unspecified Qualified Code(s): N17.9 - Acute kidney failure, unspecified (2) Hyperkalemia Assessment/Plan: on hd..will improve Code(s): E87.5 - HYPERKALEMIA (3) Hyponatremia Assessment/Plan: monitor ..on hd Code(s): E87.1 - HYPO-OSMOLALITY AND HYPONATREMIA (4) Syncope Assessment/Plan: resolved Code(s): R55 - SYNCOPE AND COLLAPSE Qualifiers: Syncope type: unspecified Qualified Code(s): R55 - Syncope and collapse (5) 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 Assessment/Plan: bgms insulin Code(s): E11.9 - TYPE 2 DIABETES MELLITUS WITHOUT COMPLICATIONS Qualifiers: 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 type: type 2 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 complication status: without complication 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 termination clerk insulin use: without termination clerk use Qualified Code(s): E11.9 - Type 2 diabetes mellitus without complications (6) GERD (gastroesophageal reflux disease) Code(s): K21.9 - GASTRO-ESOPHAGEAL REFLUX DISEASE WITHOUT ESOPHAGITIS (7) HTN (hypertension) Code(s): I10 - ESSENTIAL (PRIMARY) HYPERTENSION Qualifiers: Hypertension type: essential hypertension Qualified Code(s): I10 - Essential (primary) hypertension (8) Type 2 diabetes mellitus with foot ulcer Assessment/Plan: dr [place] on case S/P AMPUTATION LEFT FOOT Code(s): E11.621 - TYPE 2 DIABETES MELLITUS WITH FOOT ULCER; L97.509 - NON- PRESSURE CHRONIC ULCER OTH PRT UNSP FOOT W UNSP SEVERITY Assessment/Plan CC TIME 35 MIN
[2017-03-21] MEDS ORDERED: MIRTAZAPINE 15 MG TABLET (FP) ONE (22:10)
[2017-03-21] MEDS: CHLORHEXIDINE GLUCONATE 4% CLEANSER FOR DECOLONIZATION TP SCH (22:14)
[2017-03-21] MEDS: traZODone HCL 100 MG TABLET (FP) PO SCH (22:14)
[2017-03-21] MEDS: MIRTAZAPINE 30 MG TABLET (FP) PO SCH (22:15)
[2017-03-22] MEDS: oxyCODONE HCL 5 MG TABLET PO PRN ×3 (03:21→21:19)
[2017-03-22] MEDS: ACETAMINOPHEN 325 MG TABLET (FP) PO PRN ×2 (03:22→21:22)
[2017-03-22] MEDS ORDERED: PT OWN MED DRAWER 7, Y5N ONE ×7 (03:59→17:09)
[2017-03-22] MEDS: MEROPENEM 500 MG PUSH 500 MG/10 ML DISP.SYRIN IVPUSH SCH ×3 (04:02→18:30)
[2017-03-22] MEDS: morphine SULFATE 4 MG/ML VIAL IVPUSH PRN ×3 (06:21→21:53)
[2017-03-22 06:53] LABS: MCH 27.3 pg (25.7-33.7); MCHC 32.9 g/dl (32.0-35.9); MEAN CELL VOLUME 83.1 fl (80-96); MEAN PLT VOLUME 8.1 fl (7.5-11.1); PLATELET COUNT 418 K/MM3 (134-434); RDW 17.5 % (11.9-15.9); WHITE BLOOD COUNT 18.8 K/mm3 (4.0-10.0)
--- NOTE | 2017-03-22 07:08 | PN ---
Progress Note, Physician Chief Complaint: S/P BKA UNDER GENERAL ANESTHESIA History of Present Illness: POST OP DAY ONE - Current Medication List Current Medications: Active Medications Acetaminophen (Tylenol -) 650 mg PO Q4H PRN PRN Reason: PAIN 6-10 Stop: 03/24/17 11:15 Last Admin: 03/22/17 03:22 Dose: 650 mg Albuterol Sulfate (Ventolin 0.083% Nebulizer Soln -) 1 amp NEB Q4H PRN PRN Reason: SHORT OF BREATH/WHEEZING Amlodipine Besylate (Norvasc -) 10 mg PO DAILY [facility] Last Admin: 03/21/17 10:08 Dose: 10 mg Chlorhexidine Gluconate (Hibiclens For Decolonization -) 1 applic TP [facility] Last Admin: 03/21/17 22:14 Dose: 1 applic Doxazosin Mesylate (Cardura -) 4 mg PO DAILY [facility] Last Admin: 03/21/17 10:09 Dose: 4 mg Duloxetine HCl (Cymbalta -) 30 mg PO DAILY [facility] Last Admin: 03/21/17 10:08 Dose: 30 mg Folic Acid (Folic Acid -) 1 mg PO DAILY [facility] Last Admin: 03/21/17 10:08 Dose: 1 mg Heparin Sodium (Porcine) (Heparin -) 5,000 unit SQ BID [facility] Last Admin: 03/21/17 22:14 Dose: 5,000 unit Sodium Chloride (Normal Saline -) 1,000 mls @ 83 mls/hr IV ASDIR [facility] Last Admin: 03/21/17 10:49 Dose: 83 mls/hr Meropenem (Merrem (Restricted To Id) -) 500 mg in 10 mls @ 120 mls/hr IVPUSH Q8H-IV [facility] Last Admin: 03/22/17 04:02 Dose: 120 mls/hr Insulin Aspart (Novolog Vial Sliding Scale -) 1 vial SQ ACHS [facility] PRN Reason: Protocol Last Admin: 03/21/17 22:29 Dose: Not Given Insulin Detemir (Levemir Vial) 15 units SQ BID@0700,1630 [facility] Last Admin: 03/21/17 16:31 Dose: 15 units Metoprolol Tartrate (Lopressor -) 50 mg PO BID [facility] Last Admin: 03/21/17 22:14 Dose: 50 mg Mirtazapine (Remeron -) 30 mg PO HS [facility] Last Admin: 03/21/17 22:15 Dose: 30 mg Morphine Sulfate (Morphine Sulfate) 4 mg IVPUSH Q6H PRN PRN Reason: PAIN Last Admin: 03/22/17 06:21 Dose: 4 mg Mupirocin (Bactroban Ointment (For Decolonization) -) 1 applic NS BID [facility] Stop: 03/25/17 21:59 Last Admin: 03/21/17 22:11 Dose: 1 applic Oxycodone HCl (Roxicodone -) 10 mg PO Q4H PRN PRN Reason: PAIN 6-10 Last Admin: 03/22/17 03:21 Dose: 10 mg Sodium Bicarbonate (Sodium Bicarbonate -) 1,300 mg PO BID [facility] Last Admin: 03/21/17 22:15 Dose: 1,300 mg Trazodone HCl (Desyrel -) 300 mg PO [facility] Last Admin: 03/21/17 22:14 Dose: Not Given - Objective Vital Signs: Vital Signs Temperature 97.7 F 03/21/17 16:00 Pulse Rate 72 03/21/17 20:00 Respiratory Rate 18 03/21/17 20:00 Blood Pressure 123/54 03/21/17 20:00 O2 Sat by Pulse Oximetry (%) 97 03/21/17 20:39 Constitutional: Yes: Well Nourished Cardiovascular: Yes: WNL Respiratory: Yes: WNL Gastrointestinal: Yes: WNL Neurological: Yes: WNL Labs: CBC, BMP 03/22/17 05:10 INR, PTT INR 1.14 (0.82-1.09) 03/18/17 17:50 Assessment/Plan NO ADVERSE EFFECT OF ANESTHETIC, PAIN CONTROLLED, DEPT OF ANESTHESIA WILL SIGN OFF CARE AT THIS TIME
[2017-03-22 07:32] LABS: ALBUMIN 1.4 g/dl (3.4-5.0); ALK PHOS 104 U/L (45-117); ANION GAP 11 (8-16); BILIRUBIN,TOTAL 0.3 mg/dL (0.2-1.0); CO2 23 mmol/L (21-32); CREATININE 5.2 mg/dL (0.7-1.3); GLUCOSE,RANDOM 56 mg/dL (74-106); MAGNESIUM 1.9 mg/dL (1.8-2.4); PHOSPHOROUS 6.4 mg/dL (2.5-4.9); SGOT/AST 7 U/L (15-37); SGPT/ALT 10 U/L (12-78); TOT PROT 5.1 g/dl (6.4-8.2)
[2017-03-22] MEDS: INSULIN SLIDING SCALE (NOVOLOG) 1 VIAL SQ SCH ×4 (08:41→22:09)
[2017-03-22] MEDS: INSULIN DETEMIR 100 UNITS/ML MDV SQ SCH ×2 (09:00→17:19)
[2017-03-22 09:28] LABS: CALCIUM 6.5 mg/dL (8.5-10.1)
[2017-03-22] MEDS: MUPIROCIN 2% TOPICAL OINTMENT FOR DECOLONIZATION NS SCH (10:16)
[2017-03-22] MEDS: FOLIC ACID 1 MG TABLET (FP) PO SCH (10:17)
[2017-03-22] MEDS: HEPARIN NA (PORCINE) 5,000 UNITS/ML 1ML VIAL SQ SCH ×2 (10:17→21:24)
[2017-03-22] MEDS: DOXAZOSIN MESYLATE 4 MG TABLET PO SCH (10:17)
[2017-03-22] MEDS: METOPROLOL TARTRATE 25 MG TABLET (FP) PO SCH ×2 (10:18→21:23)
[2017-03-22] MEDS: amLODIPine BESYLATE 10 MG TABLET (FP) PO SCH (10:19)
[2017-03-22] MEDS: SODIUM BICARBONATE 650 MG TABLET PO SCH ×2 (10:20→21:24)
[2017-03-22] MEDS: SODIUM CHLORIDE 1,000 ML IV SCH ×2 (10:21→17:18)
--- NOTE | 2017-03-22 10:44 | PN ---
Progress Note, Physician History of Present Illness: patient stable no new issues no complaints comfortable dressing changed wound looks good - Current Medication List Current Medications: Active Medications Acetaminophen (Tylenol -) 650 mg PO Q4H PRN PRN Reason: PAIN 6-10 Stop: 03/24/17 11:15 Last Admin: 03/22/17 03:22 Dose: 650 mg Albuterol Sulfate (Ventolin 0.083% Nebulizer Soln -) 1 amp NEB Q4H PRN PRN Reason: SHORT OF BREATH/WHEEZING Amlodipine Besylate (Norvasc -) 10 mg PO DAILY [facility] Last Admin: 03/22/17 10:19 Dose: 10 mg Chlorhexidine Gluconate (Hibiclens For Decolonization -) 1 applic TP HS [facility] Last Admin: 03/21/17 22:14 Dose: 1 applic Doxazosin Mesylate (Cardura -) 4 mg PO DAILY [facility] Last Admin: 03/22/17 10:17 Dose: 4 mg Duloxetine HCl (Cymbalta -) 30 mg PO DAILY [facility] Last Admin: 03/21/17 10:08 Dose: 30 mg Folic Acid (Folic Acid -) 1 mg PO DAILY [facility] Last Admin: 03/22/17 10:17 Dose: 1 mg Heparin Sodium (Porcine) (Heparin -) 5,000 unit SQ BID [facility] Last Admin: 03/22/17 10:17 Dose: 5,000 unit Sodium Chloride (Normal Saline -) 1,000 mls @ 83 mls/hr IV ASDIR [facility] Last Admin: 03/22/17 10:21 Dose: 83 mls/hr Meropenem (Merrem (Restricted To Id) -) 500 mg in 10 mls @ 120 mls/hr IVPUSH Q8H-IV [facility] Last Admin: 03/22/17 04:02 Dose: 120 mls/hr Insulin Aspart (Novolog Vial Sliding Scale -) 1 vial SQ ACHS [facility] PRN Reason: Protocol Last Admin: 03/22/17 08:41 Dose: Not Given Insulin Detemir (Levemir Vial) 15 units SQ BID@0700,1630 [facility] Last Admin: 03/21/17 16:31 Dose: 15 units Metoprolol Tartrate (Lopressor -) 50 mg PO BID [facility] Last Admin: 03/22/17 10:18 Dose: 50 mg Mirtazapine (Remeron -) 30 mg PO HS [facility] Last Admin: 03/21/17 22:15 Dose: 30 mg Morphine Sulfate (Morphine Sulfate) 4 mg IVPUSH Q6H PRN PRN Reason: PAIN Last Admin: 03/22/17 06:21 Dose: 4 mg Mupirocin (Bactroban Ointment (For Decolonization) -) 1 applic NS BID [facility] Stop: 03/25/17 21:59 Last Admin: 03/22/17 10:16 Dose: 1 applic Oxycodone HCl (Roxicodone -) 10 mg PO Q4H PRN PRN Reason: PAIN 6-10 Last Admin: 03/22/17 03:21 Dose: 10 mg Sodium Bicarbonate (Sodium Bicarbonate -) 1,300 mg PO BID [facility] Last Admin: 03/22/17 10:20 Dose: 1,300 mg Trazodone HCl (Desyrel -) 300 mg PO [facility] Last Admin: 03/21/17 22:14 Dose: Not Given - Objective Vital Signs: Vital Signs Temperature 97.7 F 03/21/17 16:00 Pulse Rate 72 03/21/17 20:00 Respiratory Rate 18 03/21/17 20:00 Blood Pressure 123/54 03/21/17 20:00 O2 Sat by Pulse Oximetry (%) 97 03/21/17 20:39 Constitutional: Yes: No Distress, Calm Eyes: Yes: Conjunctiva Clear HENT: Yes: Atraumatic, Normocephalic Neck: Yes: Supple, Trachea Midline Cardiovascular: Yes: Regular Rate and Rhythm Respiratory: Yes: Regular, CTA Bilaterally Gastrointestinal: Yes: Normal Bowel Sounds, Soft Breast(s): Yes: Other Musculoskeletal: Yes: Other Wound/Incision: Yes: Dressing Dry and Intact Neurological: Yes: Alert, Oriented Labs: CBC, BMP 03/22/17 05:10 03/22/17 05:10 INR, PTT INR 1.14 (0.82-1.09) 03/18/17 17:50 Assessment/Plan Problem List - Problems (1) ARF (acute renal failure) Code(s): N17.9 - ACUTE KIDNEY FAILURE, UNSPECIFIED Qualifiers: Acute renal failure type: unspecified Qualified Code(s): N17.9 - Acute kidney failure, unspecified (2) Hyperkalemia Code(s): E87.5 - HYPERKALEMIA (3) Hyponatremia Code(s): E87.1 - HYPO-OSMOLALITY AND HYPONATREMIA (4) Syncope Code(s): R55 - SYNCOPE AND COLLAPSE Qualifiers: Syncope type: unspecified Qualified Code(s): R55 - Syncope and collapse (5) 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 Code(s): E11.9 - TYPE 2 DIABETES MELLITUS WITHOUT COMPLICATIONS Qualifiers: 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 type: type 2 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 complication status: without complication 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 prison insulin use: without long term care social worker use Qualified Code(s): E11.9 - Type 2 diabetes mellitus without complications (6) GERD (gastroesophageal reflux disease) Code(s): K21.9 - GASTRO-ESOPHAGEAL REFLUX DISEASE WITHOUT ESOPHAGITIS (7) HTN (hypertension) Code(s): I10 - ESSENTIAL (PRIMARY) HYPERTENSION Qualifiers: Hypertension type: essential hypertension Qualified Code(s): I10 - Essential (primary) hypertension (8) Type 2 diabetes mellitus with foot ulcer Code(s): E11.621 - TYPE 2 DIABETES MELLITUS WITH FOOT ULCER; L97.509 - NON- PRESSURE CHRONIC ULCER OTH PRT UNSP FOOT W UNSP SEVERITY patient with multiple medical problems septic with positive blood cx with the source of his infection is his foot whish is planned to be amputated once patient stabilizespatient currently lethargic plan conitnue abx continue wound care will order blood cx for tomorrow i suggest to get an u/s of heart cc time 40 min
--- NOTE | 2017-03-22 11:07 | PN ---
Progress Note (short form) - Note Progress Note: Renal Follow up for FROYLAN on CKD Pt seen and examined in the ICU awake and alert no acute complaints no sob, chest pain getting IVF Vital Signs Temperature 98 F 03/22/17 10:00 Pulse Rate 78 03/22/17 10:00 Respiratory Rate 16 03/22/17 10:00 Blood Pressure 122/70 03/22/17 10:00 O2 Sat by Pulse Oximetry (%) 98 03/22/17 10:25 Intake & Output 03/19/17 03/20/17 03/21/17 03/22/17 23:59 23:59 23:59 23:59 Intake Total 4397.4 5690 3763 581 Output Total 1200 420 550 Balance 3197.4 5270 3213 581 Weight 81.703 kg 87.572 kg 86.891 kg NAD awake and alert RRR Dec Bs at lung bases, no rales soft NT/ND Trace to 1+ Le edema CBC, BMP 03/22/17 05:10 03/22/17 05:10 Current Medications Acetaminophen (Tylenol -) 650 mg PO Q4H PRN PRN Reason: PAIN 6-10 Stop: 03/24/17 11:15 Last Admin: 03/22/17 03:22 Dose: 650 mg Albuterol Sulfate (Ventolin 0.083% Nebulizer Soln -) 1 amp NEB Q4H PRN PRN Reason: SHORT OF BREATH/WHEEZING Amlodipine Besylate (Norvasc -) 10 mg PO DAILY [facility] Last Admin: 03/22/17 10:19 Dose: 10 mg Chlorhexidine Gluconate (Hibiclens For Decolonization -) 1 applic TP HS [facility] Last Admin: 03/21/17 22:14 Dose: 1 applic Doxazosin Mesylate (Cardura -) 4 mg PO DAILY [facility] Last Admin: 03/22/17 10:17 Dose: 4 mg Duloxetine HCl (Cymbalta -) 30 mg PO DAILY [facility] Last Admin: 03/21/17 10:08 Dose: 30 mg Folic Acid (Folic Acid -) 1 mg PO DAILY [facility] Last Admin: 03/22/17 10:17 Dose: 1 mg Heparin Sodium (Porcine) (Heparin -) 5,000 unit SQ BID [facility] Last Admin: 03/22/17 10:17 Dose: 5,000 unit Sodium Chloride (Normal Saline -) 1,000 mls @ 83 mls/hr IV ASDIR [facility] Last Admin: 03/22/17 10:21 Dose: 83 mls/hr Meropenem (Merrem (Restricted To Id) -) 500 mg in 10 mls @ 120 mls/hr IVPUSH Q8H-IV [facility] Last Admin: 03/22/17 04:02 Dose: 120 mls/hr Insulin Aspart (Novolog Vial Sliding Scale -) 1 vial SQ ACHS [facility] PRN Reason: Protocol Last Admin: 03/22/17 08:41 Dose: Not Given Insulin Detemir (Levemir Vial) 15 units SQ BID@0700,1630 [facility] Last Admin: 03/21/17 16:31 Dose: 15 units Metoprolol Tartrate (Lopressor -) 50 mg PO BID [facility] Last Admin: 03/22/17 10:18 Dose: 50 mg Mirtazapine (Remeron -) 30 mg PO HS [facility] Last Admin: 03/21/17 22:15 Dose: 30 mg Morphine Sulfate (Morphine Sulfate) 4 mg IVPUSH Q6H PRN PRN Reason: PAIN Last Admin: 03/22/17 06:21 Dose: 4 mg Mupirocin (Bactroban Ointment (For Decolonization) -) 1 applic NS BID [facility] Stop: 03/25/17 21:59 Last Admin: 03/22/17 10:16 Dose: 1 applic Oxycodone HCl (Roxicodone -) 10 mg PO Q4H PRN PRN Reason: PAIN 6-10 Last Admin: 03/22/17 03:21 Dose: 10 mg Sevelamer Carbonate (Renvela -) 800 mg PO TIDCM [facility] Sodium Bicarbonate (Sodium Bicarbonate -) 1,300 mg PO BID [facility] Last Admin: 03/22/17 10:20 Dose: 1,300 mg Trazodone HCl (Desyrel -) 300 mg PO HS [facility] Last Admin: 03/21/17 22:14 Dose: Not Given 61 year old gentleman with PMhx of CKD stage 4 (baseline Cr 2.8), Hypertension , DM, PVD, Depression who presented with syncope and found to have acute on chronic renal failure with hyperkalemia and hyponatremia. #Acute Renal Failure in setting of known CKD with Hyperkalemia BUN/Cr uptrending off dialysis indicating lack of recovery/improvement in renal function no acute indication for dialysis today will trend labs for additional 24 hours but seems as though pt will need HD tomorrow dose all meds for CrCl less then 10 #Leukocytosis/Sepsis continue Abx as per ID s/p left foot amputation #Acute on Chronic anemia transfuse prbc as per ICU protocol will give ADRIAN with HD Check iron profile Miguel Jansen DO Problem List - Problems (1) Hyponatremia Code(s): E87.1 - HYPO-OSMOLALITY AND HYPONATREMIA (2) ARF (acute renal failure) Code(s): N17.9 - ACUTE KIDNEY FAILURE, UNSPECIFIED Qualifiers: Acute renal failure type: unspecified Qualified Code(s): N17.9 - Acute kidney failure, unspecified (3) Hyperkalemia Code(s): E87.5 - HYPERKALEMIA (4) Syncope Code(s): R55 - SYNCOPE AND COLLAPSE Qualifiers: Syncope type: unspecified Qualified Code(s): R55 - Syncope and collapse (5) FROYLAN (acute kidney injury) Code(s): N17.9 - ACUTE KIDNEY FAILURE, UNSPECIFIED
[2017-03-22] MEDS ORDERED: SEVELAMER CARBONATE 800 MG TAB (FP) PO SCH (11:15)
[2017-03-22] MEDS: DULoxetine HCL 30 MG CAPSULE.DR (FP) PO SCH (11:55)
--- NOTE | 2017-03-22 12:37 | PN ---
Teaching Attending Note Name of Resident: Natan Garcia ATTENDING PHYSICIAN STATEMENT I saw and evaluated the patient. I reviewed the resident's note and discussed the case with the resident. I agree with the resident's findings and plan as documented. SUBJECTIVE: Pt seen and examined in the ICU. No specific complaints. Denies shortness of breath or chest pain. No fevers or chills. OBJECTIVE: Last Vital Signs Temp Pulse Resp BP Pulse Ox 98 F 78 18 128/76 98 03/22/17 10:00 03/22/17 12:00 03/22/17 12:00 03/22/17 12:00 03/22/17 10:25 Intake & Output 03/19/17 03/20/17 03/21/17 03/22/17 23:59 23:59 23:59 23:59 Intake Total 4397.4 5690 3763 581 Output Total 1200 420 550 Balance 3197.4 5270 3213 581 Weight 180 lb 2 oz 193 lb 1 oz 191 lb 9 oz Gen: NAD at rest Heart: RRR Lung: decreased breath sounds at the bases Abd: soft, nontender Ext: dressings dry, no edema CBC, BMP 03/22/17 05:10 03/22/17 05:10 Active Medications Acetaminophen (Tylenol -) 650 mg PO Q4H PRN PRN Reason: PAIN 6-10 Stop: 03/24/17 11:15 Last Admin: 03/22/17 03:22 Dose: 650 mg Albuterol Sulfate (Ventolin 0.083% Nebulizer Soln -) 1 amp NEB Q4H PRN PRN Reason: SHORT OF BREATH/WHEEZING Amlodipine Besylate (Norvasc -) 10 mg PO DAILY [facility] Last Admin: 03/22/17 10:19 Dose: 10 mg Chlorhexidine Gluconate (Hibiclens For Decolonization -) 1 applic TP HS [facility] Last Admin: 03/21/17 22:14 Dose: 1 applic Doxazosin Mesylate (Cardura -) 4 mg PO DAILY [facility] Last Admin: 03/22/17 10:17 Dose: 4 mg Duloxetine HCl (Cymbalta -) 30 mg PO DAILY [facility] Last Admin: 03/22/17 11:55 Dose: 30 mg Epoetin Joe (Procrit -) 10,000 unit IVPUSH ONCE ONE Stop: 03/23/17 06:01 Folic Acid (Folic Acid -) 1 mg PO DAILY [facility] Last Admin: 03/22/17 10:17 Dose: 1 mg Heparin Sodium (Porcine) (Heparin -) 5,000 unit SQ BID [facility] Last Admin: 03/22/17 10:17 Dose: 5,000 unit Sodium Chloride (Normal Saline -) 1,000 mls @ 83 mls/hr IV ASDIR [facility] Last Admin: 03/22/17 10:21 Dose: 83 mls/hr Meropenem (Merrem (Restricted To Id) -) 500 mg in 10 mls @ 120 mls/hr IVPUSH Q8H-IV IGGY Last Admin: 03/22/17 11:53 Dose: 120 mls/hr Insulin Aspart (Novolog Vial Sliding Scale -) 1 vial SQ ACHS [facility] PRN Reason: Protocol Last Admin: 03/22/17 11:56 Dose: 6 units Insulin Detemir (Levemir Vial) 15 units SQ BID@0700,1630 [facility] Last Admin: 03/22/17 09:00 Dose: 15 units Metoprolol Tartrate (Lopressor -) 50 mg PO BID [facility] Last Admin: 03/22/17 10:18 Dose: 50 mg Mirtazapine (Remeron -) 30 mg PO HS [facility] Last Admin: 03/21/17 22:15 Dose: 30 mg Morphine Sulfate (Morphine Sulfate) 4 mg IVPUSH Q6H PRN PRN Reason: PAIN Last Admin: 03/22/17 06:21 Dose: 4 mg Mupirocin (Bactroban Ointment (For Decolonization) -) 1 applic NS BID [facility] Stop: 03/25/17 21:59 Last Admin: 03/22/17 10:16 Dose: 1 applic Oxycodone HCl (Roxicodone -) 10 mg PO Q4H PRN PRN Reason: PAIN 6-10 Last Admin: 03/22/17 03:21 Dose: 10 mg Sevelamer Carbonate (Renvela -) 800 mg PO TIDCM [facility] Last Admin: 03/22/17 12:02 Dose: 800 mg Sodium Bicarbonate (Sodium Bicarbonate -) 1,300 mg PO BID [facility] Last Admin: 03/22/17 10:20 Dose: 1,300 mg Trazodone HCl (Desyrel -) 300 mg PO HS [facility] Last Admin: 03/21/17 22:14 Dose: Not Given ASSESSMENT AND PLAN: Left Foot Gangrene Strep Bacteremia Septic Shock Acute on Chronic Renal Failure Hyperkalemia improving Hyponatremia improving Anemia DM - IV antibiotics per ID - monitor H/H - HD per renal - monitor lytes - continue insulin - monitor urine output, creatinine - will likely need permacath - for R BKA - DVT prophylaxis - can monitor on floor
--- NOTE | 2017-03-22 14:17 | PN ---
Physical Exam: SUBJECTIVE: The patient is a 61M with a PMH of CKD stage 4, HTN, DM, and PVD s/ p TMA who presented to the ED with headaches and a syncopal episode. The patient was found to be in septic shock and sent to the ICU. The patient states that his leg pain has become more mild. He is on a scheduled pain med course. Otherwise he denies CP, SOB, fever, chills, nausea, vomiting. No acute events overnight. OBJECTIVE: Vital Signs Period Temp Pulse Resp BP Sys/Gutierrez Pulse Ox Last 24 Hr 97.7 F-98 F 69-78 16-18 112-128/54-76 97-98 GENERAL: The patient is awake, alert, and fully oriented, in no acute distress. HEAD: Normal with no signs of trauma. EYES: PERRL, extraocular movements intact, sclera anicteric, conjunctiva clear. No ptosis. NECK: Trachea midline, full range of motion, supple. LUNGS: Breath sounds equal, clear to auscultation bilaterally, no wheezes, no crackles, no accessory muscle use. HEART: Regular rate and rhythm, S1, S2 without murmur, rub or gallop. ABDOMEN: Soft, nontender, nondistended, normoactive bowel sounds, no guarding, no rebound, no hepatosplenomegaly, no masses. EXTREMITIES: LLE wrapped. 2+ pulses, warm, well-perfused, no edema. NEUROLOGICAL: Cranial nerves II through XII grossly intact. Normal speech, gait not observed. PSYCH: Normal mood, normal affect. SKIN: Warm, dry, normal turgor, no rashes or lesions noted Laboratory Results - last 24 hr 03/18/17 03/21/17 03/21/17 17:50 16:13 22:27 WBC RBC Hgb Hct MCV MCH MCHC RDW Plt Count MPV Neutrophils % Lymphocytes % Sodium Potassium Chloride Carbon Dioxide Anion Gap BUN Creatinine Creat Clearance w eGFR POC Glucometer 193.61326 130.96463 Random Glucose Calcium Phosphorus Magnesium Total Bilirubin AST ALT Alkaline Phosphatase Total Protein Albumin Blood Type B POSITIVE Antibody Screen Negative Crossmatch See Detail 03/22/17 03/22/17 03/22/17 05:10 05:10 06:16 WBC 18.8 H RBC 3.33 L Hgb 9.1 L D Hct 27.6 L MCV 83.1 MCH 27.3 MCHC 32.9 RDW 17.5 H Plt Count 418 MPV 8.1 Neutrophils % No Result Required. Lymphocytes % No Result Required. Sodium 141 Potassium 4.3 Chloride 107 Carbon Dioxide 23 Anion Gap 11 BUN 71 H Creatinine 5.2 H Creat Clearance w eGFR 11.33 POC Glucometer 81.23911 Random Glucose 56 L D Calcium 6.5 L* Phosphorus 6.4 H Magnesium 1.9 Total Bilirubin 0.3 AST 7 L D ALT 10 L Alkaline Phosphatase 104 Total Protein 5.1 L Albumin 1.4 L Blood Type Antibody Screen Crossmatch 03/22/17 03/22/17 08:46 11:41 WBC RBC Hgb Hct MCV MCH MCHC RDW Plt Count MPV Neutrophils % Lymphocytes % Sodium Potassium Chloride Carbon Dioxide Anion Gap BUN Creatinine Creat Clearance w eGFR POC Glucometer 184.82356 251.28132 Random Glucose Calcium Phosphorus Magnesium Total Bilirubin AST ALT Alkaline Phosphatase Total Protein Albumin Blood Type Antibody Screen Crossmatch Active Medications Generic Name Dose Route Start Last Admin Trade Name Freq PRN Reason Stop Dose Admin Acetaminophen 650 mg 03/21/17 11:16 03/22/17 03:22 Tylenol - PO 03/24/17 11:15 650 mg Q4H PRN Administration PAIN 6-10 Albuterol Sulfate 1 amp 03/20/17 13:22 Ventolin 0.083% Nebulizer Soln - NEB Q4H PRN SHORT OF BREATH/WHEEZING Amlodipine Besylate 10 mg 03/21/17 10:00 03/22/17 10:19 Norvasc - PO 10 mg DAILY IGGY Administration Chlorhexidine Gluconate 1 applic 03/20/17 22:00 03/21/17 22:14 Hibiclens For Decolonization - TP 1 applic HS IGGY Administration Doxazosin Mesylate 4 mg 03/21/17 10:00 03/22/17 10:17 Cardura - PO 4 mg DAILY IGGY Administration Duloxetine HCl 30 mg 03/21/17 10:00 03/22/17 11:55 Cymbalta - PO 30 mg DAILY IGGY Administration Epoetin Joe 10,000 unit 03/23/17 06:00 Procrit - IVPUSH 03/23/17 06:01 ONCE ONE Folic Acid 1 mg 03/21/17 10:00 03/22/17 10:17 Folic Acid - PO 1 mg DAILY IGGY Administration Heparin Sodium (Porcine) 5,000 unit 03/20/17 22:00 03/22/17 10:17 Heparin - SQ 5,000 unit BID IGGY Administration Sodium Chloride 1,000 mls @ 83 mls/hr 03/21/17 10:32 03/22/17 10:21 Normal Saline - IV 83 mls/hr ASDIR IGGY Administration Meropenem 500 mg in 10 mls @ 120 mls/hr 03/21/17 15:45 03/22/17 11:53 Merrem (Restricted To Id) - IVPUSH 120 mls/hr Q8H-IV IGGY Administration Insulin Aspart 1 vial 03/20/17 16:30 03/22/17 11:56 Novolog Vial Sliding Scale - SQ 6 units ACHS IGGY Administration Protocol Insulin Detemir 15 units 03/20/17 16:30 03/22/17 09:00 Levemir Vial SQ 15 units BID@0700,1630 I[facility] Administration Metoprolol Tartrate 50 mg 03/20/17 22:00 03/22/17 10:18 Lopressor - PO 50 mg BID IGGY Administration Mirtazapine 30 mg 03/20/17 22:00 03/21/17 22:15 Remeron - PO 30 mg HS IGGY Administration Morphine Sulfate 4 mg 03/20/17 13:22 03/22/17 06:21 Morphine Sulfate IVPUSH 4 mg Q6H PRN Administration PAIN Mupirocin 1 applic 03/20/17 22:00 03/22/17 10:16 Bactroban Ointment (For Decolonization) - NS 03/25/17 21:59 1 applic BID IGGY Administration Oxycodone HCl 10 mg 03/21/17 11:16 03/22/17 03:21 Roxicodone - PO 10 mg Q4H PRN Administration PAIN 6-10 Sevelamer Carbonate 800 mg 03/22/17 11:15 03/22/17 12:02 Renvela - PO 800 mg TIDCM IGGY Administration Sodium Bicarbonate 1,300 mg 03/20/17 22:00 03/22/17 10:20 Sodium Bicarbonate - PO 1,300 mg BID IGGY Administration Trazodone HCl 300 mg 03/20/17 22:00 03/21/17 22:14 Desyrel - PO Not Given HS IGGY ASSESSMENT/PLAN: 61 year old gentleman with PMhx of CKD stage 4 (baseline Cr 2.8), Hypertension, DM, PVD, Depression who presented with syncope found to be severely septic with FROYLAN s/p left foot amputation. Neuro: - A&Ox3 - At baseline CV: - EKG showing 1st degree heart block, unchanged from September 2016 EKG Pulm: - None Renal: - Stage 4 CKD - BUN/Cr not improving; 71/5.2 from 67/4.8. Continue to trend. : - Serna in place; making appropriate urine GI: - None ID: - Osteo of L foot; guillotine amputation done 03/20/[address] Daly. Will let drain until Saturday. - Continue vanc with renal dosing - Continue Zosyn Hem/Onc: - Had 2 units PRBC post op with appropriate response - Hgb improving 9.1 from 8.2. Endocrine: - Insulin dependent diabetic - Continue ISS and Levamir MSK - L foot osteo requiring BKA by Dr. 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 See ID PPX: - heparin SQ FEN (Fluids, electrolytes, nutrition): - 83mL/hour NS - Renal diet Dispo: - Transfer to med/surg for further monitoring Visit type - Emergency Visit Emergency Visit: Yes ED Registration Date: 03/18/17 Care time: The patient presented to the Emergency Department on the above date and was hospitalized for further evaluation of their emergent condition. - New Patient This patient is new to me today: Yes Date on this admission: 04/02/17 - Critical Care Critical Care patient: Yes Total Critical Care Time (in minutes): 40 Critical Care Statement: The care of this patient involved high complexity decision making to prevent further life threatening deterioration of the patient 's condition and/or to evaluate & treat vital organ system(s) failure or risk of failure.
[2017-03-22 15:00] LABS: MYELOCYTE 2 % (0-2); PLATELET ESTIMATE ADEQUATE; TOTAL CELLS COUNTED 100
[2017-03-22] MEDS ORDERED: ALBUTEROL SO4 0.083% IH SOL 2.5 MG/3 ML VIAL.NEB. NEB PRN (15:40)
--- NOTE | 2017-03-22 16:47 | PN ---
Progress Note, Physician - Current Medication List Current Medications: Active Medications Acetaminophen (Tylenol -) 650 mg PO Q4H PRN PRN Reason: PAIN 6-10 Stop: 03/24/17 11:15 Albuterol Sulfate (Ventolin 0.083% Nebulizer Soln -) 1 amp NEB Q4H PRN PRN Reason: SHORT OF BREATH/WHEEZING Amlodipine Besylate (Norvasc -) 10 mg PO DAILY [facility] Doxazosin Mesylate (Cardura -) 4 mg PO DAILY [facility] Duloxetine HCl (Cymbalta -) 30 mg PO DAILY [facility] Epoetin Joe (Procrit -) 10,000 unit IVPUSH ONCE ONE Stop: 03/23/17 06:01 Folic Acid (Folic Acid -) 1 mg PO DAILY [facility] Heparin Sodium (Porcine) (Heparin -) 5,000 unit SQ BID IGG[facility] Meropenem (Merrem (Restricted To Id) -) 500 mg in 10 mls @ 120 mls/hr IVPUSH Q8H-IV IGGY Sodium Chloride (Normal Saline -) 1,000 mls @ 83 mls/hr IV ASDIR [facility] Insulin Aspart (Novolog Vial Sliding Scale -) 1 vial SQ ACHS IGG[facility] PRN Reason: Protocol Insulin Detemir (Levemir Vial) 15 units SQ BID@0700,1630 [facility] Metoprolol Tartrate (Lopressor -) 50 mg PO BID [facility]GG[facility] Mirtazapine (Remeron -) 30 mg PO HS IGGY Morphine Sulfate (Morphine Sulfate) 4 mg IVPUSH Q6H PRN PRN Reason: PAIN Oxycodone HCl (Roxicodone -) 10 mg PO Q4H PRN PRN Reason: PAIN 6-10 Sevelamer Carbonate (Renvela -) 800 mg PO TIDCM IGGY Sodium Bicarbonate (Sodium Bicarbonate -) 1,300 mg PO BID IGG[facility] Trazodone HCl (Desyrel -) 300 mg PO HS IGGY - Objective Vital Signs: Vital Signs Temperature 98 F 03/22/17 10:00 Pulse Rate 78 03/22/17 12:00 Respiratory Rate 18 03/22/17 12:00 Blood Pressure 128/76 03/22/17 12:00 O2 Sat by Pulse Oximetry (%) 98 03/22/17 10:25 Constitutional: Yes: No Distress HENT: Yes: Atraumatic Neck: Yes: Supple Cardiovascular: Yes: Regular Rate and Rhythm Respiratory: Yes: CTA Bilaterally Extremities: Yes: WNL Neurological: Yes: Alert, Oriented Labs: CBC, BMP 03/22/17 05:10 03/22/17 05:10 INR, PTT INR 1.14 (0.82-1.09) 03/18/17 17:50 Problem List - Problems (1) ARF (acute renal failure) Assessment/Plan: on hd dr mendoza Code(s): N17.9 - ACUTE KIDNEY FAILURE, UNSPECIFIED Qualifiers: Acute renal failure type: unspecified Qualified Code(s): N17.9 - Acute kidney failure, unspecified (2) Hyperkalemia Assessment/Plan: on hd..will improve Code(s): E87.5 - HYPERKALEMIA (3) Hyponatremia Assessment/Plan: monitor ..on hd Code(s): E87.1 - HYPO-OSMOLALITY AND HYPONATREMIA (4) Syncope Assessment/Plan: resolved Code(s): R55 - SYNCOPE AND COLLAPSE Qualifiers: Syncope type: unspecified Qualified Code(s): R55 - Syncope and collapse (5) 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 Assessment/Plan: bgms insulin Code(s): E11.9 - TYPE 2 DIABETES MELLITUS WITHOUT COMPLICATIONS Qualifiers: 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 type: type 2 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 complication status: without complication 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 senior care insulin use: without terminal computer operator use Qualified Code(s): E11.9 - Type 2 diabetes mellitus without complications (6) GERD (gastroesophageal reflux disease) Code(s): K21.9 - GASTRO-ESOPHAGEAL REFLUX DISEASE WITHOUT ESOPHAGITIS (7) HTN (hypertension) Assessment/Plan: on meds stable Code(s): I10 - ESSENTIAL (PRIMARY) HYPERTENSION Qualifiers: Hypertension type: essential hypertension Qualified Code(s): I10 - Essential (primary) hypertension (8) Type 2 diabetes mellitus with foot ulcer Assessment/Plan: dr ve[place] on case S/P AMPUTATION LEFT FOOT Code(s): E11.621 - TYPE 2 DIABETES MELLITUS WITH FOOT ULCER; L97.509 - NON- PRESSURE CHRONIC ULCER OTH PRT UNSP FOOT W UNSP SEVERITY
[2017-03-22] MEDS: SEVELAMER CARBONATE 800 MG TAB (FP) PO SCH (17:17)
[2017-03-22] MEDS ORDERED: traZODone HCL 50 MG TABLET (FP) ONE (21:13)
[2017-03-22] MEDS: MIRTAZAPINE 30 MG TABLET (FP) PO SCH (21:23)
[2017-03-22] MEDS: traZODone HCL 100 MG TABLET (FP) PO SCH (21:24)
[2017-03-22] MEDS ORDERED: MUPIROCIN 2% TOPICAL OINTMENT FOR DECOLONIZATION NS SCH (22:00)
[2017-03-22] MEDS ORDERED: CHLORHEXIDINE GLUCONATE 4% CLEANSER FOR DECOLONIZATION TP SCH (22:00)
[2017-03-22] MEDS ORDERED: INSULIN (NOVOLOG) ASPART 100 UNITS/ML 10ML VIAL ONE (22:22)
[2017-03-23] MEDS: MEROPENEM 500 MG PUSH 500 MG/10 ML DISP.SYRIN IVPUSH SCH ×3 (01:47→17:06)
[2017-03-23] MEDS: SODIUM CHLORIDE 1,000 ML IV SCH ×2 (05:24→17:02)
[2017-03-23] MEDS ORDERED: EPOETIN ALFA 10,000 UNIT/1 ML VIAL IVPUSH ONE ×2 (06:00→07:00)
[2017-03-23] MEDS: INSULIN SLIDING SCALE (NOVOLOG) 1 VIAL SQ SCH ×4 (06:22→21:39)
[2017-03-23] MEDS: INSULIN DETEMIR 100 UNITS/ML MDV SQ SCH ×2 (06:25→17:02)
--- NOTE | 2017-03-23 06:56 | PN ---
Progress Note (short form) - Note Progress Note: Radiograph report on right foot noted Will attend patient and possibly biopsy to r/o osteomyelitis
[2017-03-23] MEDS ORDERED: PT OWN MED DRAWER 7, Y5N ONE ×3 (07:05→21:32)
[2017-03-23] MEDS: morphine SULFATE 4 MG/ML VIAL IVPUSH PRN ×3 (08:12→20:39)
[2017-03-23 09:12] LABS: MCH 27.1 pg (25.7-33.7); MCHC 32.6 g/dl (32.0-35.9); MEAN CELL VOLUME 83.1 fl (80-96); MEAN PLT VOLUME 8.3 fl (7.5-11.1); PLATELET COUNT 444 K/MM3 (134-434); RDW 17.1 % (11.9-15.9); WHITE BLOOD COUNT 18.9 K/mm3 (4.0-10.0)
[2017-03-23] MEDS: SEVELAMER CARBONATE 800 MG TAB (FP) PO SCH ×3 (09:22→17:04)
[2017-03-23 09:34] LABS: ALBUMIN 1.4 g/dl (3.4-5.0); ALK PHOS 116 U/L (45-117); ANION GAP 8 (8-16); BILIRUBIN,TOTAL 0.3 mg/dL (0.2-1.0); CO2 24 mmol/L (21-32); CREATININE 5.6 mg/dL (0.7-1.3); GLUCOSE,RANDOM 98 mg/dL (74-106); PHOSPHOROUS 6.8 mg/dL (2.5-4.9); SGOT/AST 9 U/L (15-37); SGPT/ALT 12 U/L (12-78); TOT PROT 5.5 g/dl (6.4-8.2)
[2017-03-23 10:20] LABS: CALCIUM 6.7 mg/dL (8.5-10.1)
--- NOTE | 2017-03-23 11:32 | PN ---
Progress Note (short form) - Note Progress Note: No acute events overnight. Breathing is non-labored. Some discomfort at the surgical site. Intake & Output 03/20/17 03/21/17 03/22/17 03/23/17 23:59 23:59 23:59 23:59 Intake Total 5690 3763 881 1200 Output Total 420 550 400 500 Balance 5270 3213 481 700 Weight 193 lb 1 oz 191 lb 9 oz 216 lb Last Vital Signs Temp Pulse Resp BP Pulse Ox 98.0 F 70 18 122/70 99 03/23/17 08:10 03/23/17 10:45 03/23/17 10:45 03/23/17 10:45 03/22/17 21:00 Active Medications Acetaminophen (Tylenol -) 650 mg PO Q4H PRN PRN Reason: PAIN 6-10 Stop: 03/24/17 11:15 Albuterol Sulfate (Ventolin 0.083% Nebulizer Soln -) 1 amp NEB Q4H PRN PRN Reason: SHORT OF BREATH/WHEEZING Amlodipine Besylate (Norvasc -) 10 mg PO DAILY [facility] Doxazosin Mesylate (Cardura -) 4 mg PO DAILY [facility] Duloxetine HCl (Cymbalta -) 30 mg PO DAILY [facility] Folic Acid (Folic Acid -) 1 mg PO DAILY [facility] Heparin Sodium (Porcine) (Heparin -) 5,000 unit SQ BID [facility] Last Admin: 03/22/17 21:24 Dose: 5,000 unit Meropenem (Merrem (Restricted To Id) -) 500 mg in 10 mls @ 120 mls/hr IVPUSH Q8H-IV [facility] Last Admin: 03/23/17 01:47 Dose: 120 mls/hr Sodium Chloride (Normal Saline -) 1,000 mls @ 83 mls/hr IV ASDIR [facility] Last Admin: 03/23/17 05:24 Dose: 83 mls/hr Insulin Aspart (Novolog Vial Sliding Scale -) 1 vial SQ ACHS [facility] PRN Reason: Protocol Last Admin: 03/23/17 11:21 Dose: Not Given Insulin Detemir (Levemir Vial) 15 units SQ BID@0700,1630 [facility] Last Admin: 03/23/17 06:25 Dose: 15 units Metoprolol Tartrate (Lopressor -) 50 mg PO BID [facility] Last Admin: 03/22/17 21:23 Dose: 50 mg Mirtazapine (Remeron -) 30 mg PO HS [facility] Last Admin: 03/22/17 21:23 Dose: 30 mg Morphine Sulfate (Morphine Sulfate) 4 mg IVPUSH Q6H PRN PRN Reason: PAIN Last Admin: 03/23/17 08:12 Dose: 4 mg Oxycodone HCl (Roxicodone -) 10 mg PO Q4H PRN PRN Reason: PAIN 6-10 Last Admin: 03/22/17 17:17 Dose: 10 mg Sevelamer Carbonate (Renvela -) 800 mg PO TIDCM [facility] Last Admin: 03/23/17 09:22 Dose: Not Given Sodium Bicarbonate (Sodium Bicarbonate -) 1,300 mg PO BID [facility] Last Admin: 03/22/17 21:24 Dose: 1,300 mg Trazodone HCl (Desyrel -) 300 mg PO HS [facility] Last Admin: 03/22/17 21:24 Dose: 300 mg Gen: NAD at rest Heart: RRR Lung: decreased breath sounds at the bases Abd: soft, nontender Ext: no edema, dressings intact Laboratory Results - last 24 hr 03/18/17 03/19/17 03/19/17 17:50 15:45 15:45 WBC RBC Hgb Hct MCV MCH MCHC RDW Plt Count MPV Total Counted Neutrophils % (Manual) Lymphocytes % (Manual) Monocytes % (Manual) Myelocytes % (Man) Platelet Estimate Sodium Potassium Chloride Carbon Dioxide Anion Gap BUN Creatinine Creat Clearance w eGFR POC Glucometer Random Glucose Calcium Phosphorus Total Bilirubin AST ALT Alkaline Phosphatase Total Protein Albumin Hep A IgM Ab Confirm Negative Hepatitis A Ab Total Positive H Hep Bs Antigen Negative Hep Bs Antibody Reactive Hep B Core Total Ab Positive H Hepatitis C Antibody <0.1 Blood Type B POSITIVE Antibody Screen Negative Crossmatch See Detail 03/22/17 03/22/17 03/22/17 05:10 11:41 17:05 WBC RBC Hgb Hct MCV MCH MCHC RDW Plt Count MPV Total Counted 100 Neutrophils % (Manual) 83.0 H Lymphocytes % (Manual) 8.0 D Monocytes % (Manual) 6 Myelocytes % (Man) 2 Platelet Estimate Adequate Sodium Potassium Chloride Carbon Dioxide Anion Gap BUN Creatinine Creat Clearance w eGFR POC Glucometer 251.35249 159 Random Glucose Calcium Phosphorus Total Bilirubin AST ALT Alkaline Phosphatase Total Protein Albumin Hep A IgM Ab Confirm Hepatitis A Ab Total Hep Bs Antigen Hep Bs Antibody Hep B Core Total Ab Hepatitis C Antibody Blood Type Antibody Screen Crossmatch 03/22/17 03/23/17 03/23/17 21:39 05:57 08:30 WBC RBC Hgb Hct MCV MCH MCHC RDW Plt Count MPV Total Counted Neutrophils % (Manual) Lymphocytes % (Manual) Monocytes % (Manual) Myelocytes % (Man) Platelet Estimate Sodium 140 Potassium 4.6 Chloride 108 H Carbon Dioxide 24 Anion Gap 8 BUN 72 H Creatinine 5.6 H Creat Clearance w eGFR 10.40 POC Glucometer 190 123 Random Glucose 98 D Calcium 6.7 L* Phosphorus 6.8 H Total Bilirubin 0.3 AST 9 L D ALT 12 Alkaline Phosphatase 116 Total Protein 5.5 L Albumin 1.4 L Hep A IgM Ab Confirm Hepatitis A Ab Total Hep Bs Antigen Hep Bs Antibody Hep B Core Total Ab Hepatitis C Antibody Blood Type Antibody Screen Crossmatch 03/23/17 08:30 WBC 18.9 H RBC 3.12 L Hgb 8.4 L Hct 25.9 L MCV 83.1 MCH 27.1 MCHC 32.6 RDW 17.1 H Plt Count 444 H MPV 8.3 Total Counted Neutrophils % (Manual) Lymphocytes % (Manual) Monocytes % (Manual) Myelocytes % (Man) Platelet Estimate Sodium Potassium Chloride Carbon Dioxide Anion Gap BUN Creatinine Creat Clearance w eGFR POC Glucometer Random Glucose Calcium Phosphorus Total Bilirubin AST ALT Alkaline Phosphatase Total Protein Albumin Hep A IgM Ab Confirm Hepatitis A Ab Total Hep Bs Antigen Hep Bs Antibody Hep B Core Total Ab Hepatitis C Antibody Blood Type Antibody Screen Crossmatch ASSESSMENT AND PLAN: POD #1 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
[2017-03-23] MEDS: HEPARIN NA (PORCINE) 5,000 UNITS/ML 1ML VIAL SQ SCH ×2 (11:50→21:37)
[2017-03-23] MEDS: SODIUM BICARBONATE 650 MG TABLET PO SCH ×2 (11:58→21:38)
[2017-03-23] MEDS: METOPROLOL TARTRATE 25 MG TABLET (FP) PO SCH ×2 (11:59→21:38)
[2017-03-23] MEDS: DULoxetine HCL 30 MG CAPSULE.DR (FP) PO SCH (11:59)
[2017-03-23] MEDS: FOLIC ACID 1 MG TABLET (FP) PO SCH (11:59)
[2017-03-23] MEDS: DOXAZOSIN MESYLATE 4 MG TABLET PO SCH (11:59)
[2017-03-23] MEDS: amLODIPine BESYLATE 10 MG TABLET (FP) PO SCH (11:59)
[2017-03-23] MEDS: ACETAMINOPHEN 325 MG TABLET (FP) PO PRN ×2 (12:00→17:25)
[2017-03-23] MEDS: oxyCODONE HCL 5 MG TABLET PO PRN ×2 (12:00→17:25)
--- NOTE | 2017-03-23 12:16 | PN ---
Progress Note, Physician Chief Complaint: The patient seen in his room. Had hemodialysis earlier. The femoral catheter was periodically malfunctioning during dialysis. History of Present Illness: This is a 61 year old gentleman with PMhx of CKD stage 4 (baseline Cr 2.8), Hypertension, DM, PVD, Depression who presented with syncope and found to have acute on chronic renal failure with hyperkalemia and hyponatremia. The patient's renal functions failed to improve, and hence the dialysis started using a Femoral catheter. - Current Medication List Current Medications: Active Medications Acetaminophen (Tylenol -) 650 mg PO Q4H PRN PRN Reason: PAIN 6-10 Stop: 03/24/17 11:15 Last Admin: 03/23/17 12:00 Dose: 650 mg Albuterol Sulfate (Ventolin 0.083% Nebulizer Soln -) 1 amp NEB Q4H PRN PRN Reason: SHORT OF BREATH/WHEEZING Amlodipine Besylate (Norvasc -) 10 mg PO DAILY [facility] Last Admin: 03/23/17 11:59 Dose: 10 mg Doxazosin Mesylate (Cardura -) 4 mg PO DAILY [facility] Last Admin: 03/23/17 11:59 Dose: 4 mg Duloxetine HCl (Cymbalta -) 30 mg PO DAILY [facility] Last Admin: 03/23/17 11:59 Dose: 30 mg Folic Acid (Folic Acid -) 1 mg PO DAILY [facility] Last Admin: 03/23/17 11:59 Dose: 1 mg Heparin Sodium (Porcine) (Heparin -) 5,000 unit SQ BID [facility] Last Admin: 03/23/17 11:50 Dose: Not Given Meropenem (Merrem (Restricted To Id) -) 500 mg in 10 mls @ 120 mls/hr IVPUSH Q8H-IV [facility] Last Admin: 03/23/17 12:00 Dose: 120 mls/hr Sodium Chloride (Normal Saline -) 1,000 mls @ 83 mls/hr IV ASDIR [facility] Last Admin: 03/23/17 05:24 Dose: 83 mls/hr Insulin Aspart (Novolog Vial Sliding Scale -) 1 vial SQ ACHS [facility] PRN Reason: Protocol Last Admin: 03/23/17 11:21 Dose: Not Given Insulin Detemir (Levemir Vial) 15 units SQ BID@0700,1630 [facility] Last Admin: 03/23/17 06:25 Dose: 15 units Metoprolol Tartrate (Lopressor -) 50 mg PO BID [facility] Last Admin: 03/23/17 11:59 Dose: 50 mg Mirtazapine (Remeron -) 30 mg PO [facility] Last Admin: 03/22/17 21:23 Dose: 30 mg Morphine Sulfate (Morphine Sulfate) 4 mg IVPUSH Q6H PRN PRN Reason: PAIN Last Admin: 03/23/17 08:12 Dose: 4 mg Oxycodone HCl (Roxicodone -) 10 mg PO Q4H PRN PRN Reason: PAIN 6-10 Last Admin: 03/23/17 12:00 Dose: 10 mg Sevelamer Carbonate (Renvela -) 800 mg PO TIDCM [facility] Last Admin: 03/23/17 12:00 Dose: 800 mg Sodium Bicarbonate (Sodium Bicarbonate -) 1,300 mg PO BID [facility] Last Admin: 03/23/17 11:58 Dose: 1,300 mg Trazodone HCl (Desyrel -) 300 mg PO [facility] Last Admin: 03/22/17 21:24 Dose: 300 mg - Objective Vital Signs: Vital Signs Temperature 98.0 F 03/23/17 08:10 Pulse Rate 74 03/23/17 11:30 Respiratory Rate 18 03/23/17 11:30 Blood Pressure 135/74 03/23/17 11:30 O2 Sat by Pulse Oximetry (%) 99 03/22/17 21:00 Constitutional: Yes: Calm Eyes: Yes: Conjunctiva Clear Cardiovascular: Yes: S1, S2 Respiratory: Yes: CTA Bilaterally, Diminished Gastrointestinal: Yes: Normal Bowel Sounds, Abdomen, Obese Genitourinary: No: CVA Tenderness - Left, CVA Tenderness - Right Extremities: Yes: Amputation Neurological: Yes: Oriented Labs: CBC, BMP 03/23/17 08:30 03/23/17 08:30 INR, PTT INR 1.14 (0.82-1.09) 03/18/17 17:50 Problem List - Problems (1) ARF (acute renal failure) Code(s): N17.9 - ACUTE KIDNEY FAILURE, UNSPECIFIED Qualifiers: Acute renal failure type: unspecified Qualified Code(s): N17.9 - Acute kidney failure, unspecified (2) Gangrene of left foot Code(s): I96 - GANGRENE, NOT ELSEWHERE CLASSIFIED (3) Anemia Code(s): D64.9 - ANEMIA, UNSPECIFIED Qualifiers: Anemia type: due to chronic kidney disease (4) Chronic renal insufficiency, stage IV (severe) Code(s): N18.4 - CHRONIC KIDNEY DISEASE, STAGE 4 (SEVERE) (5) 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 Code(s): E11.9 - TYPE 2 DIABETES MELLITUS WITHOUT COMPLICATIONS Qualifiers: 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 type: type 2 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 complication status: without complication 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 long term care administrator insulin use: without longterm use Qualified Code(s): E11.9 - Type 2 diabetes mellitus without complications (6) GERD (gastroesophageal reflux disease) Code(s): K21.9 - GASTRO-ESOPHAGEAL REFLUX DISEASE WITHOUT ESOPHAGITIS (7) HTN (hypertension) Code(s): I10 - ESSENTIAL (PRIMARY) HYPERTENSION Qualifiers: Hypertension type: essential hypertension Qualified Code(s): I10 - Essential (primary) hypertension (8) Type 2 diabetes mellitus with foot ulcer Code(s): E11.621 - TYPE 2 DIABETES MELLITUS WITH FOOT ULCER; L97.509 - NON- PRESSURE CHRONIC ULCER OTH PRT UNSP FOOT W UNSP SEVERITY Assessment/Plan 61 year old gentleman with PMhx of CKD stage 4 (baseline Cr 2.8), Hypertension, DM, PVD, Depression who presented with syncope and found to have acute on chronic renal failure with hyperkalemia and hyponatremia. The patient is now dialysis dependent. The femoral catheter is malfunctioning. Will have it removed today. Will have Dr. Daly place Permacath before the next dialysis. Aniyah Chaudhry MD
--- NOTE | 2017-03-23 15:44 | PN ---
Progress Note, Physician Chief Complaint: ID f/u note: History of Present Illness: Pt seen and examined, events noted. Labs and imaging results reviewed. He is a 61 y.o. male with IDDM, FROYLAN on CKD now on HD, HTN, s/p R great toe amp, Lt foot s/p L TMA, anemia, who presented with FROYLAN on CKD (now on HD), syncope and noted to have infected Lt foot collection s/p I+D, extending up. He is s/p Lt guillotine amputation. Blood cultures on admission grew B hemolytic streptococcus, with polymicrobial infection of wound. Currently patient is alert but weak, wbc count remains elevated. HD catheter malfunctioning, for permacath placement. He states he feels "ok". - Current Medication List Current Medications: Active Medications Acetaminophen (Tylenol -) 650 mg PO Q4H PRN PRN Reason: PAIN 6-10 Stop: 03/24/17 11:15 Last Admin: 03/23/17 12:00 Dose: 650 mg Albuterol Sulfate (Ventolin 0.083% Nebulizer Soln -) 1 amp NEB Q4H PRN PRN Reason: SHORT OF BREATH/WHEEZING Amlodipine Besylate (Norvasc -) 10 mg PO DAILY [facility] Last Admin: 03/23/17 11:59 Dose: 10 mg Doxazosin Mesylate (Cardura -) 4 mg PO DAILY [facility] Last Admin: 03/23/17 11:59 Dose: 4 mg Duloxetine HCl (Cymbalta -) 30 mg PO DAILY [facility] Last Admin: 03/23/17 11:59 Dose: 30 mg Folic Acid (Folic Acid -) 1 mg PO DAILY [facility] Last Admin: 03/23/17 11:59 Dose: 1 mg Heparin Sodium (Porcine) (Heparin -) 5,000 unit SQ BID [facility] Last Admin: 03/23/17 11:50 Dose: Not Given Meropenem (Merrem (Restricted To Id) -) 500 mg in 10 mls @ 120 mls/hr IVPUSH Q8H-IV [facility] Last Admin: 03/23/17 12:00 Dose: 120 mls/hr Sodium Chloride (Normal Saline -) 1,000 mls @ 83 mls/hr IV ASDIR [facility] Last Admin: 03/23/17 05:24 Dose: 83 mls/hr Insulin Aspart (Novolog Vial Sliding Scale -) 1 vial SQ ACHS [facility] PRN Reason: Protocol Last Admin: 03/23/17 11:21 Dose: Not Given Insulin Detemir (Levemir Vial) 15 units SQ BID@0700,1630 [facility] Last Admin: 03/23/17 06:25 Dose: 15 units Metoprolol Tartrate (Lopressor -) 50 mg PO BID [facility] Last Admin: 03/23/17 11:59 Dose: 50 mg Mirtazapine (Remeron -) 30 mg PO [facility] Last Admin: 03/22/17 21:23 Dose: 30 mg Morphine Sulfate (Morphine Sulfate) 4 mg IVPUSH Q6H PRN PRN Reason: PAIN Last Admin: 03/23/17 14:21 Dose: 4 mg Oxycodone HCl (Roxicodone -) 10 mg PO Q4H PRN PRN Reason: PAIN 6-10 Last Admin: 03/23/17 12:00 Dose: 10 mg Sevelamer Carbonate (Renvela -) 800 mg PO TIDCM [facility] Last Admin: 03/23/17 12:00 Dose: 800 mg Sodium Bicarbonate (Sodium Bicarbonate -) 1,300 mg PO BID [facility] Last Admin: 03/23/17 11:58 Dose: 1,300 mg Trazodone HCl (Desyrel -) 300 mg PO [facility] Last Admin: 03/22/17 21:24 Dose: 300 mg - Objective Vital Signs: Vital Signs Temperature 98.2 F 03/23/17 14:19 Pulse Rate 81 03/23/17 14:19 Respiratory Rate 20 03/23/17 14:19 Blood Pressure 125/62 03/23/17 14:19 O2 Sat by Pulse Oximetry (%) 99 03/22/17 21:00 Constitutional: Yes: No Distress, Calm HENT: Yes: WNL Neck: Yes: Supple Cardiovascular: Yes: Regular Rate and Rhythm Respiratory: Yes: Regular Gastrointestinal: Yes: Normal Bowel Sounds, Soft Extremities: Yes: Amputation (Lt guillotine), Other (Rt foot 5th MT dry ulcer/ eschar) Wound/Incision: Yes: Clean/Dry, Dressing Dry and Intact Neurological: Yes: Alert, Weakness Labs: CBC, BMP 03/23/17 08:30 03/23/17 08:30 INR, PTT INR 1.14 (0.82-1.09) 03/18/17 17:50 Microbiology 03/18/17 Unknown Blood - Peripheral Venous Blood Culture - Preliminary NO GROWTH OBTAINED AFTER 96 HOURS, INCUBATION TO CONTINUE FOR 1 DAYS. 03/18/17 Unknown Blood - Peripheral Venous Blood Culture - Final Beta Hem Streptococcus Group G 03/18/17 19:30 Foot - Left Gram Stain - Final 03/18/17 19:30 Foot - Left Wound Culture - Final Beta Hem Streptococcus Group G Diphtheroid/Corynebacterium Morganella Morganii 03/18/17 17:53 Urine - Urine Clean Catch Urine Culture - Final NO GROWTH OBTAINED - ....Imaging X-ray: Report Reviewed Problem List - Problems (1) ARF (acute renal failure) Code(s): N17.9 - ACUTE KIDNEY FAILURE, UNSPECIFIED Qualifiers: Acute renal failure type: unspecified Qualified Code(s): N17.9 - Acute kidney failure, unspecified (2) Gangrene of left foot Code(s): I96 - GANGRENE, NOT ELSEWHERE CLASSIFIED (3) Syncope Code(s): R55 - SYNCOPE AND COLLAPSE Qualifiers: Syncope type: unspecified Qualified Code(s): R55 - Syncope and collapse (4) COPD with emphysema Code(s): J43.9 - EMPHYSEMA, UNSPECIFIED (5) Chronic renal insufficiency, stage IV (severe) Code(s): N18.4 - CHRONIC KIDNEY DISEASE, STAGE 4 (SEVERE) (6) Diabetic neuropathy Code(s): E11.40 - TYPE 2 DIABETES MELLITUS WITH DIABETIC NEUROPATHY, UNSP Qualifiers: 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 type: type 2 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 complication detail: diabetic polyneuropathy Qualified Code(s): E11.42 - Type 2 diabetes mellitus with diabetic polyneuropathy (7) Foot infection Code(s): L08.9 - LOCAL INFECTION OF THE SKIN AND SUBCUTANEOUS TISSUE, UNSP (8) Neuropathy Code(s): G62.9 - POLYNEUROPATHY, UNSPECIFIED (9) S/P amputation Code(s): Z89.9 - ACQUIRED ABSENCE OF LIMB, UNSPECIFIED (10) Type 2 diabetes mellitus with foot ulcer Code(s): E11.621 - TYPE 2 DIABETES MELLITUS WITH FOOT ULCER; L97.509 - NON- PRESSURE CHRONIC ULCER OTH PRT UNSP FOOT W UNSP SEVERITY Assessment/Plan Pt is s/p Lt guillotine amputation now on HD Rt foot ulcer with xray suggestive of possible OM Leukocytosis - recommend repeat blood cultures, obtain echocardiogram - consider MRI of Rt foot - monitor wbc trend, remains elevated -continue current antibiotic, will adjust if necessary
[2017-03-23] MEDS ORDERED: INSULIN DETEMIR 100 UNITS/ML MDV SQ ONE (17:08)
--- NOTE | 2017-03-23 18:46 | PN ---
Progress Note, Physician - Current Medication List Current Medications: Active Medications Acetaminophen (Tylenol -) 650 mg PO Q4H PRN PRN Reason: PAIN 6-10 Stop: 03/24/17 11:15 Last Admin: 03/23/17 17:25 Dose: 650 mg Albuterol Sulfate (Ventolin 0.083% Nebulizer Soln -) 1 amp NEB Q4H PRN PRN Reason: SHORT OF BREATH/WHEEZING Amlodipine Besylate (Norvasc -) 10 mg PO DAILY [facility] Last Admin: 03/23/17 11:59 Dose: 10 mg Doxazosin Mesylate (Cardura -) 4 mg PO DAILY [facility] Last Admin: 03/23/17 11:59 Dose: 4 mg Duloxetine HCl (Cymbalta -) 30 mg PO DAILY [facility] Last Admin: 03/23/17 11:59 Dose: 30 mg Folic Acid (Folic Acid -) 1 mg PO DAILY [facility] Last Admin: 03/23/17 11:59 Dose: 1 mg Heparin Sodium (Porcine) (Heparin -) 5,000 unit SQ BID [facility] Last Admin: 03/23/17 11:50 Dose: Not Given Meropenem (Merrem (Restricted To Id) -) 500 mg in 10 mls @ 120 mls/hr IVPUSH Q8H-IV [facility] Last Admin: 03/23/17 17:06 Dose: 120 mls/hr Sodium Chloride (Normal Saline -) 1,000 mls @ 83 mls/hr IV ASDIR [facility] Last Admin: 03/23/17 17:02 Dose: Not Given Insulin Aspart (Novolog Vial Sliding Scale -) 1 vial SQ ACHS [facility] PRN Reason: Protocol Last Admin: 03/23/17 17:03 Dose: 4 unit Insulin Detemir (Levemir Vial) 15 units SQ BID@0700,1630 [facility] Last Admin: 03/23/17 17:02 Dose: 15 units Metoprolol Tartrate (Lopressor -) 50 mg PO BID [facility] Last Admin: 03/23/17 11:59 Dose: 50 mg Mirtazapine (Remeron -) 30 mg PO HS [facility] Last Admin: 03/22/17 21:23 Dose: 30 mg Morphine Sulfate (Morphine Sulfate) 4 mg IVPUSH Q6H PRN PRN Reason: PAIN Last Admin: 03/23/17 14:21 Dose: 4 mg Oxycodone HCl (Roxicodone -) 10 mg PO Q4H PRN PRN Reason: PAIN 6-10 Last Admin: 03/23/17 17:25 Dose: 10 mg Sevelamer Carbonate (Renvela -) 800 mg PO TIDCM [facility] Last Admin: 03/23/17 17:04 Dose: 800 mg Sodium Bicarbonate (Sodium Bicarbonate -) 1,300 mg PO BID [facility] Last Admin: 03/23/17 11:58 Dose: 1,300 mg Trazodone HCl (Desyrel -) 300 mg PO HS [facility] Last Admin: 03/22/17 21:24 Dose: 300 mg - Objective Vital Signs: Vital Signs Temperature 98.2 F 03/23/17 14:19 Pulse Rate 81 03/23/17 14:19 Respiratory Rate 20 03/23/17 14:19 Blood Pressure 125/62 03/23/17 14:19 O2 Sat by Pulse Oximetry (%) 99 03/22/17 21:00 Constitutional: Yes: No Distress HENT: Yes: Atraumatic Neck: Yes: Supple Cardiovascular: Yes: Regular Rate and Rhythm Respiratory: Yes: CTA Bilaterally Gastrointestinal: Yes: Normal Bowel Sounds Extremities: Yes: Other (left foot amputation) Neurological: Yes: Alert, Oriented Labs: CBC, BMP 03/23/17 08:30 03/23/17 08:30 INR, PTT INR 1.14 (0.82-1.09) 03/18/17 17:50 Problem List - Problems (1) ARF (acute renal failure) Assessment/Plan: on hd dr mendoza Code(s): N17.9 - ACUTE KIDNEY FAILURE, UNSPECIFIED Qualifiers: Acute renal failure type: unspecified Qualified Code(s): N17.9 - Acute kidney failure, unspecified (2) Hyperkalemia Assessment/Plan: on hd..will improve Code(s): E87.5 - HYPERKALEMIA (3) Hyponatremia Assessment/Plan: monitor ..on hd Code(s): E87.1 - HYPO-OSMOLALITY AND HYPONATREMIA (4) Syncope Assessment/Plan: resolved Code(s): R55 - SYNCOPE AND COLLAPSE Qualifiers: Syncope type: unspecified Qualified Code(s): R55 - Syncope and collapse (5) 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 Assessment/Plan: bgms insulin Code(s): E11.9 - TYPE 2 DIABETES MELLITUS WITHOUT COMPLICATIONS Qualifiers: 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 type: type 2 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 complication status: without complication 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 snf insulin use: without snf use Qualified Code(s): E11.9 - Type 2 diabetes mellitus without complications (6) GERD (gastroesophageal reflux disease) Code(s): K21.9 - GASTRO-ESOPHAGEAL REFLUX DISEASE WITHOUT ESOPHAGITIS (7) HTN (hypertension) Assessment/Plan: on meds stable Code(s): I10 - ESSENTIAL (PRIMARY) HYPERTENSION Qualifiers: Hypertension type: essential hypertension Qualified Code(s): I10 - Essential (primary) hypertension (8) Type 2 diabetes mellitus with foot ulcer Code(s): E11.621 - TYPE 2 DIABETES MELLITUS WITH FOOT ULCER; L97.509 - NON- PRESSURE CHRONIC ULCER OTH PRT UNSP FOOT W UNSP SEVERITY
[2017-03-23] MEDS ORDERED: traZODone HCL 50 MG TABLET (FP) ONE (21:31)
[2017-03-23] MEDS: traZODone HCL 100 MG TABLET (FP) PO SCH (21:38)
[2017-03-23] MEDS: MIRTAZAPINE 30 MG TABLET (FP) PO SCH (21:38)
[2017-03-24] MEDS: MEROPENEM 500 MG PUSH 500 MG/10 ML DISP.SYRIN IVPUSH SCH ×3 (01:57→17:07)
[2017-03-24] MEDS: oxyCODONE HCL 5 MG TABLET PO PRN ×2 (02:00→17:06)
[2017-03-24] MEDS: ACETAMINOPHEN 325 MG TABLET (FP) PO PRN (02:01)
[2017-03-24] MEDS: SODIUM CHLORIDE 1,000 ML IV SCH ×4 (04:56→21:31)
[2017-03-24] MEDS: INSULIN SLIDING SCALE (NOVOLOG) 1 VIAL SQ SCH ×4 (06:06→21:33)
[2017-03-24] MEDS ORDERED: INSULIN DETEMIR 100 UNITS/ML MDV SQ ONE (06:08)
[2017-03-24] MEDS: INSULIN DETEMIR 100 UNITS/ML MDV SQ SCH ×2 (06:11→17:05)
[2017-03-24] MEDS: morphine SULFATE 4 MG/ML VIAL IVPUSH PRN ×3 (08:36→21:25)
[2017-03-24] MEDS: SEVELAMER CARBONATE 800 MG TAB (FP) PO SCH ×3 (08:36→17:06)
[2017-03-24] MEDS: SODIUM BICARBONATE 650 MG TABLET PO SCH ×2 (09:33→21:25)
[2017-03-24] MEDS: amLODIPine BESYLATE 10 MG TABLET (FP) PO SCH (09:33)
[2017-03-24] MEDS: DOXAZOSIN MESYLATE 4 MG TABLET PO SCH (09:33)
[2017-03-24] MEDS: DULoxetine HCL 30 MG CAPSULE.DR (FP) PO SCH (09:33)
[2017-03-24] MEDS: METOPROLOL TARTRATE 25 MG TABLET (FP) PO SCH ×2 (09:33→21:25)
[2017-03-24] MEDS: FOLIC ACID 1 MG TABLET (FP) PO SCH (09:33)
[2017-03-24] MEDS: HEPARIN NA (PORCINE) 5,000 UNITS/ML 1ML VIAL SQ SCH ×2 (09:33→21:25)
--- NOTE | 2017-03-24 11:33 | PN ---
Progress Note (short form) - Note Progress Note: No acute events overnight. Breathing is non-labored. Some discomfort at the surgical site. Intake & Output 03/21/17 03/22/17 03/23/17 03/24/17 23:59 23:59 23:59 23:59 Intake Total 3763 881 2481 833 Output Total 550 400 900 500 Balance 3213 481 1581 333 Weight 191 lb 9 oz 216 lb 117 lb 1 oz Last Vital Signs Temp Pulse Resp BP Pulse Ox 97.7 F 75 20 128/70 97 03/24/17 10:00 03/24/17 10:00 03/24/17 10:00 03/24/17 10:00 03/23/17 21:00 Active Medications Albuterol Sulfate (Ventolin 0.083% Nebulizer Soln -) 1 amp NEB Q4H PRN PRN Reason: SHORT OF BREATH/WHEEZING Amlodipine Besylate (Norvasc -) 10 mg PO DAILY [facility] Last Admin: 03/24/17 09:33 Dose: 10 mg Doxazosin Mesylate (Cardura -) 4 mg PO DAILY [facility] Last Admin: 03/24/17 09:33 Dose: 4 mg Duloxetine HCl (Cymbalta -) 30 mg PO DAILY [facility] Last Admin: 03/24/17 09:33 Dose: 30 mg Folic Acid (Folic Acid -) 1 mg PO DAILY [facility] Last Admin: 03/24/17 09:33 Dose: 1 mg Heparin Sodium (Porcine) (Heparin -) 5,000 unit SQ BID [facility] Last Admin: 03/24/17 09:33 Dose: 5,000 unit Meropenem (Merrem (Restricted To Id) -) 500 mg in 10 mls @ 120 mls/hr IVPUSH Q8H-IV [facility] Last Admin: 03/24/17 09:34 Dose: 120 mls/hr Sodium Chloride (Normal Saline -) 1,000 mls @ 83 mls/hr IV ASDIR [facility] Last Admin: 03/24/17 04:56 Dose: 83 mls/hr Insulin Aspart (Novolog Vial Sliding Scale -) 1 vial SQ ACHS [facility] PRN Reason: Protocol Last Admin: 03/24/17 11:30 Dose: Not Given Insulin Detemir (Levemir Vial) 15 units SQ BID@0700,1630 [facility] Last Admin: 03/24/17 06:11 Dose: 15 units Metoprolol Tartrate (Lopressor -) 50 mg PO BID [facility] Last Admin: 03/24/17 09:33 Dose: 50 mg Mirtazapine (Remeron -) 30 mg PO [facility] Last Admin: 03/23/17 21:38 Dose: 30 mg Morphine Sulfate (Morphine Sulfate) 4 mg IVPUSH Q6H PRN PRN Reason: PAIN Last Admin: 03/24/17 08:36 Dose: 4 mg Oxycodone HCl (Roxicodone -) 10 mg PO Q4H PRN PRN Reason: PAIN 6-10 Last Admin: 03/24/17 02:00 Dose: 10 mg Sevelamer Carbonate (Renvela -) 800 mg PO TIDCM [facility] Last Admin: 03/24/17 08:36 Dose: 800 mg Sodium Bicarbonate (Sodium Bicarbonate -) 1,300 mg PO BID [facility] Last Admin: 03/24/17 09:33 Dose: 1,300 mg Trazodone HCl (Desyrel -) 300 mg PO [facility] Last Admin: 03/23/17 21:38 Dose: 300 mg Gen: NAD at rest Heart: RRR Lung: decreased breath sounds at the bases Abd: soft, nontender Ext: no edema, dressings intact Laboratory Results - last 24 hr 03/18/17 03/23/17 03/23/17 17:50 08:30 16:58 Manual Slide Review No Result Required. 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
--- NOTE | 2017-03-24 15:55 | PN ---
Progress Note, Physician Chief Complaint: The patient seen in his room. Comfortable. No new problems. History of Present Illness: This is a 61 year old gentleman with PMhx of CKD stage 4 (baseline Cr 2.8), Hypertension, DM, PVD, Depression who presented with syncope and found to have acute on chronic renal failure with hyperkalemia and hyponatremia. The patient's renal functions failed to improve, and hence the dialysis started using a Femoral catheter. - Current Medication List Current Medications: Active Medications Albuterol Sulfate (Ventolin 0.083% Nebulizer Soln -) 1 amp NEB Q4H PRN PRN Reason: SHORT OF BREATH/WHEEZING Amlodipine Besylate (Norvasc -) 10 mg PO DAILY [facility] Last Admin: 03/24/17 09:33 Dose: 10 mg Doxazosin Mesylate (Cardura -) 4 mg PO DAILY [facility] Last Admin: 03/24/17 09:33 Dose: 4 mg Duloxetine HCl (Cymbalta -) 30 mg PO DAILY [facility] Last Admin: 03/24/17 09:33 Dose: 30 mg Folic Acid (Folic Acid -) 1 mg PO DAILY [facility] Last Admin: 03/24/17 09:33 Dose: 1 mg Heparin Sodium (Porcine) (Heparin -) 5,000 unit SQ BID [facility] Last Admin: 03/24/17 09:33 Dose: 5,000 unit Meropenem (Merrem (Restricted To Id) -) 500 mg in 10 mls @ 120 mls/hr IVPUSH Q8H-IV [facility] Last Admin: 03/24/17 09:34 Dose: 120 mls/hr Sodium Chloride (Normal Saline -) 1,000 mls @ 83 mls/hr IV ASDIR [facility] Last Admin: 03/24/17 11:52 Dose: 83 mls/hr Insulin Aspart (Novolog Vial Sliding Scale -) 1 vial SQ ACHS [facility] PRN Reason: Protocol Last Admin: 03/24/17 11:30 Dose: Not Given Insulin Detemir (Levemir Vial) 15 units SQ BID@0700,1630 [facility] Last Admin: 03/24/17 06:11 Dose: 15 units Metoprolol Tartrate (Lopressor -) 50 mg PO BID [facility] Last Admin: 03/24/17 09:33 Dose: 50 mg Mirtazapine (Remeron -) 30 mg PO HS [facility] Last Admin: 03/23/17 21:38 Dose: 30 mg Morphine Sulfate (Morphine Sulfate) 4 mg IVPUSH Q6H PRN PRN Reason: PAIN Last Admin: 03/24/17 14:51 Dose: 4 mg Oxycodone HCl (Roxicodone -) 10 mg PO Q4H PRN PRN Reason: PAIN 6-10 Last Admin: 03/24/17 02:00 Dose: 10 mg Sevelamer Carbonate (Renvela -) 800 mg PO TIDCM [facility] Last Admin: 03/24/17 11:48 Dose: 800 mg Sodium Bicarbonate (Sodium Bicarbonate -) 1,300 mg PO BID [facility] Last Admin: 03/24/17 09:33 Dose: 1,300 mg Trazodone HCl (Desyrel -) 300 mg PO [facility] Last Admin: 03/23/17 21:38 Dose: 300 mg - Objective Vital Signs: Vital Signs Temperature 97.9 F 03/24/17 14:36 Pulse Rate 78 03/24/17 14:36 Respiratory Rate 20 03/24/17 14:36 Blood Pressure 147/78 03/24/17 14:36 O2 Sat by Pulse Oximetry (%) 97 03/23/17 21:00 Constitutional: Yes: No Distress Eyes: Yes: Conjunctiva Clear HENT: Yes: Normocephalic Neck: Yes: Supple Cardiovascular: Yes: S1, S2 Respiratory: Yes: CTA Bilaterally, Diminished Gastrointestinal: Yes: Normal Bowel Sounds, Abdomen, Obese Extremities: Yes: Amputation Edema: Yes Labs: CBC, BMP 03/23/17 08:30 03/23/17 08:30 INR, PTT INR 1.14 (0.82-1.09) 03/18/17 17:50 Problem List - Problems (1) ARF (acute renal failure) Code(s): N17.9 - ACUTE KIDNEY FAILURE, UNSPECIFIED Qualifiers: Acute renal failure type: unspecified Qualified Code(s): N17.9 - Acute kidney failure, unspecified (2) Gangrene of left foot Code(s): I96 - GANGRENE, NOT ELSEWHERE CLASSIFIED (3) Anemia Code(s): D64.9 - ANEMIA, UNSPECIFIED Qualifiers: Anemia type: due to chronic kidney disease (4) Chronic renal insufficiency, stage IV (severe) Code(s): N18.4 - CHRONIC KIDNEY DISEASE, STAGE 4 (SEVERE) (5) 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 Code(s): E11.9 - TYPE 2 DIABETES MELLITUS WITHOUT COMPLICATIONS Qualifiers: 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 type: type 2 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 complication status: without complication 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 ad terminal makeup operator insulin use: without ad terminal makeup operator use Qualified Code(s): E11.9 - Type 2 diabetes mellitus without complications (6) GERD (gastroesophageal reflux disease) Code(s): K21.9 - GASTRO-ESOPHAGEAL REFLUX DISEASE WITHOUT ESOPHAGITIS (7) HTN (hypertension) Code(s): I10 - ESSENTIAL (PRIMARY) HYPERTENSION Qualifiers: Hypertension type: essential hypertension Qualified Code(s): I10 - Essential (primary) hypertension (8) Type 2 diabetes mellitus with foot ulcer Code(s): E11.621 - TYPE 2 DIABETES MELLITUS WITH FOOT ULCER; L97.509 - NON- PRESSURE CHRONIC ULCER OTH PRT UNSP FOOT W UNSP SEVERITY Assessment/Plan 61 year old gentleman with PMhx of CKD stage 4 (baseline Cr 2.8), Hypertension, DM, PVD, Depression who presented with syncope and found to have acute on chronic renal failure with hyperkalemia and hyponatremia. The patient is now dialysis dependent. The femoral catheter is malfunctioning. Will have it removed today. Will have Dr. Daly place Permacath before the next dialysis on Saturday. Aniyah Chaudhry MD
[2017-03-24] MEDS ORDERED: PT OWN MED DRAWER 7, Y5N ONE (17:03)
--- NOTE | 2017-03-24 17:10 | PN ---
Progress Note, Physician History of Present Illness: Pt is alert. Denies fever/chills. Has no specific complaints. wbc remains elevated but stable. Awaiting permacath placement. - Current Medication List Current Medications: Active Medications Albuterol Sulfate (Ventolin 0.083% Nebulizer Soln -) 1 amp NEB Q4H PRN PRN Reason: SHORT OF BREATH/WHEEZING Amlodipine Besylate (Norvasc -) 10 mg PO DAILY [facility] Last Admin: 03/24/17 09:33 Dose: 10 mg Doxazosin Mesylate (Cardura -) 4 mg PO DAILY [facility] Last Admin: 03/24/17 09:33 Dose: 4 mg Duloxetine HCl (Cymbalta -) 30 mg PO DAILY [facility] Last Admin: 03/24/17 09:33 Dose: 30 mg Folic Acid (Folic Acid -) 1 mg PO DAILY [facility] Last Admin: 03/24/17 09:33 Dose: 1 mg Heparin Sodium (Porcine) (Heparin -) 5,000 unit SQ BID [facility] Last Admin: 03/24/17 09:33 Dose: 5,000 unit Meropenem (Merrem (Restricted To Id) -) 500 mg in 10 mls @ 120 mls/hr IVPUSH Q8H-IV [facility] Last Admin: 03/24/17 09:34 Dose: 120 mls/hr Sodium Chloride (Normal Saline -) 1,000 mls @ 83 mls/hr IV ASDIR [facility] Last Admin: 03/24/17 16:59 Dose: Not Given Insulin Aspart (Novolog Vial Sliding Scale -) 1 vial SQ ACHS [facility] PRN Reason: Protocol Last Admin: 03/24/17 16:59 Dose: Not Given Insulin Detemir (Levemir Vial) 15 units SQ BID@0700,1630 [facility] Last Admin: 03/24/17 06:11 Dose: 15 units Metoprolol Tartrate (Lopressor -) 50 mg PO BID [facility] Last Admin: 03/24/17 09:33 Dose: 50 mg Mirtazapine (Remeron -) 30 mg PO HS [facility] Last Admin: 03/23/17 21:38 Dose: 30 mg Morphine Sulfate (Morphine Sulfate) 4 mg IVPUSH Q6H PRN PRN Reason: PAIN Last Admin: 03/24/17 14:51 Dose: 4 mg Oxycodone HCl (Roxicodone -) 10 mg PO Q4H PRN PRN Reason: PAIN 6-10 Last Admin: 03/24/17 02:00 Dose: 10 mg Sevelamer Carbonate (Renvela -) 800 mg PO TIDCM [facility] Last Admin: 03/24/17 11:48 Dose: 800 mg Sodium Bicarbonate (Sodium Bicarbonate -) 1,300 mg PO BID [facility] Last Admin: 03/24/17 09:33 Dose: 1,300 mg Trazodone HCl (Desyrel -) 300 mg PO HS [facility] Last Admin: 03/23/17 21:38 Dose: 300 mg - Objective Vital Signs: Vital Signs Temperature 97.9 F 03/24/17 14:36 Pulse Rate 78 03/24/17 14:36 Respiratory Rate 20 03/24/17 14:36 Blood Pressure 147/78 03/24/17 14:36 O2 Sat by Pulse Oximetry (%) 97 03/23/17 21:00 Constitutional: Yes: No Distress, Calm Neck: Yes: Supple Cardiovascular: Yes: Regular Rate and Rhythm Respiratory: Yes: Regular Gastrointestinal: Yes: Normal Bowel Sounds, Soft Extremities: Yes: Amputation (Lt foot guillotine amputation), Other (Rt foot ulcers dry) Wound/Incision: Yes: Dressing Dry and Intact Neurological: Yes: Alert, Oriented Labs: CBC, BMP 03/23/17 08:30 03/23/17 08:30 INR, PTT INR 1.14 (0.82-1.09) 03/18/17 17:50 Problem List - Problems (1) ARF (acute renal failure) Code(s): N17.9 - ACUTE KIDNEY FAILURE, UNSPECIFIED Qualifiers: Acute renal failure type: unspecified Qualified Code(s): N17.9 - Acute kidney failure, unspecified (2) Gangrene of left foot Code(s): I96 - GANGRENE, NOT ELSEWHERE CLASSIFIED (3) Syncope Code(s): R55 - SYNCOPE AND COLLAPSE Qualifiers: Syncope type: unspecified Qualified Code(s): R55 - Syncope and collapse (4) COPD with emphysema Code(s): J43.9 - EMPHYSEMA, UNSPECIFIED (5) Chronic renal insufficiency, stage IV (severe) Code(s): N18.4 - CHRONIC KIDNEY DISEASE, STAGE 4 (SEVERE) (6) Diabetic neuropathy Code(s): E11.40 - TYPE 2 DIABETES MELLITUS WITH DIABETIC NEUROPATHY, UNSP Qualifiers: 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 type: type 2 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 complication detail: diabetic polyneuropathy Qualified Code(s): E11.42 - Type 2 diabetes mellitus with diabetic polyneuropathy (7) Foot infection Code(s): L08.9 - LOCAL INFECTION OF THE SKIN AND SUBCUTANEOUS TISSUE, UNSP (8) Neuropathy Code(s): G62.9 - POLYNEUROPATHY, UNSPECIFIED (9) S/P amputation Code(s): Z89.9 - ACQUIRED ABSENCE OF LIMB, UNSPECIFIED (10) Type 2 diabetes mellitus with foot ulcer Code(s): E11.621 - TYPE 2 DIABETES MELLITUS WITH FOOT ULCER; L97.509 - NON- PRESSURE CHRONIC ULCER OTH PRT UNSP FOOT W UNSP SEVERITY Assessment/Plan s/p Lt foot guillotine amputation leukocytosis persists but wbc stable vitals stable - repeat cbc in a.m. -repeat blood cultures ordered - suggest further imaging of Rt foot continue dressing changes
[2017-03-24] MEDS ORDERED: GENTAMICIN SO4 0.1% TOP CREAM 15 GM/TUBE TP ONE (18:28)
--- NOTE | 2017-03-24 18:37 | PN ---
Progress Note, Physician Chief Complaint: s/p Incision and drainage left foot and above ankle resection pending formal transtibial resection as well as a 5th metatarsal ulceration contralaterally ( right foot) - Current Medication List Current Medications: Active Medications Albuterol Sulfate (Ventolin 0.083% Nebulizer Soln -) 1 amp NEB Q4H PRN PRN Reason: SHORT OF BREATH/WHEEZING Amlodipine Besylate (Norvasc -) 10 mg PO DAILY [facility] Last Admin: 03/24/17 09:33 Dose: 10 mg Doxazosin Mesylate (Cardura -) 4 mg PO DAILY [facility] Last Admin: 03/24/17 09:33 Dose: 4 mg Duloxetine HCl (Cymbalta -) 30 mg PO DAILY [facility] Last Admin: 03/24/17 09:33 Dose: 30 mg Folic Acid (Folic Acid -) 1 mg PO DAILY [facility] Last Admin: 03/24/17 09:33 Dose: 1 mg Gentamicin Sulfate (Garamycin 0.1% Cream -) 1 applic TP ONCE ONE Stop: 03/24/17 18:29 Heparin Sodium (Porcine) (Heparin -) 5,000 unit SQ BID [facility] Last Admin: 03/24/17 09:33 Dose: 5,000 unit Meropenem (Merrem (Restricted To Id) -) 500 mg in 10 mls @ 120 mls/hr IVPUSH Q8H-IV [facility] Last Admin: 03/24/17 17:07 Dose: 120 mls/hr Sodium Chloride (Normal Saline -) 1,000 mls @ 83 mls/hr IV ASDIR [facility] Last Admin: 03/24/17 16:59 Dose: Not Given Insulin Aspart (Novolog Vial Sliding Scale -) 1 vial SQ ACHS [facility] PRN Reason: Protocol Last Admin: 03/24/17 16:59 Dose: Not Given Insulin Detemir (Levemir Vial) 15 units SQ BID@0700,1630 [facility] Last Admin: 03/24/17 17:05 Dose: 15 units Metoprolol Tartrate (Lopressor -) 50 mg PO BID [facility] Last Admin: 03/24/17 09:33 Dose: 50 mg Mirtazapine (Remeron -) 30 mg PO HS [facility] Last Admin: 03/23/17 21:38 Dose: 30 mg Morphine Sulfate (Morphine Sulfate) 4 mg IVPUSH Q6H PRN PRN Reason: PAIN Last Admin: 03/24/17 14:51 Dose: 4 mg Oxycodone HCl (Roxicodone -) 10 mg PO Q4H PRN PRN Reason: PAIN 6-10 Last Admin: 03/24/17 17:06 Dose: 10 mg Sevelamer Carbonate (Renvela -) 800 mg PO TIDCM [facility] Last Admin: 03/24/17 17:06 Dose: 800 mg Sodium Bicarbonate (Sodium Bicarbonate -) 1,300 mg PO BID [facility] Last Admin: 03/24/17 09:33 Dose: 1,300 mg Trazodone HCl (Desyrel -) 300 mg PO HS [facility] Last Admin: 03/23/17 21:38 Dose: 300 mg - Objective Vital Signs: Vital Signs Temperature 36.6 C 03/24/17 14:36 Pulse Rate 78 03/24/17 14:36 Respiratory Rate 20 03/24/17 14:36 Blood Pressure 147/78 03/24/17 14:36 O2 Sat by Pulse Oximetry (%) 97 03/23/17 21:00 Constitutional: Yes: No Distress, Calm Cardiovascular: Yes: WNL Respiratory: Yes: WNL ...Rectal Exam: Yes: Deferred Musculoskeletal: Yes: Other (above ankle open resection of left foot) Extremities: Yes: Amputation, Deformity Edema: LLE: 1+, RLE: 1+ Peripheral Pulses: Right Dorsalis Pedis: 1+ Integumentary: Yes: Incision, Laceration (above ankle open resection of left foot submet head right 5th metatarsal full thickness ulceration) Wound/Incision: Yes: Clean/Dry, Dressing Dry and Intact, Dressing Removed Neurological: Yes: Loss of Sensation, Numbness, Paresthesia, Pre-Existing Deficit, Tingling ...Motor Strength: WNL Psychiatric: Yes: Other Additional Findings/Remarks: This patient is status post in incision and drainage of multiple areas of the left foot secondary to chronic osteomyelitis. During the course of the incision and drainage, noted proximal tracking to the lower leg with purulence oozing from the region. Consulted general surgery (Dr. Daly) who performed an above ankle resection of the left foot in anticipation for a formal transtibial resection. (Below the knee amputation). Concern for the contralateral or right foot as patient has a relatively recent onset of a full thickness sub metatarsal head five ulceration. Clinical examination today reveals a guillotine resection of the left lower limb with no evidence of purulence after the dressing was removed. The tibia and fibula were visible. Examination of the right or contralateral foot reveals that there was no dressing in place. And order for dressing of the right foot was placed on the evening of admission but searching the medical record reveals that that dressing order placed by this examiner vanished. Alerted the nurse and applied a dry sterile dressing. Radiographs were prefer performed on the right foot which shows some periosteal proliferation and osteolysis at the ulcerated site. Concern for osteomyelitis. Magnetic resonance imaging ordered. May need osseous biopsy depending on the latter result. Ulceration is stable and there seems to be no soft tissue infection and will wait for resolution of the left lower limb before any surgical debridement which will be necessary. The evaluation and management is independent of the previous incision and drainage and to address the contralateral foot. Total time with patient on the morgan and discussion with professional staff exceeding 40 minutes. Labs: CBC, BMP 03/23/17 08:30 03/23/17 08:30 INR, PTT INR 1.14 (0.82-1.09) 03/18/17 17:50 - ....Imaging X-ray: Report Reviewed, Image Reviewed (concern for right 5th met osteomyelitis - + periosteal proliferation + osteolysis) MRI: Pending
[2017-03-24] MEDS ORDERED: traZODone HCL 50 MG TABLET (FP) ONE (21:21)
[2017-03-24] MEDS: GENTAMICIN SO4 0.1% TOP CREAM 15 GM/TUBE TP SCH (21:24)
[2017-03-24] MEDS: traZODone HCL 100 MG TABLET (FP) PO SCH (21:25)
[2017-03-24] MEDS: MIRTAZAPINE 30 MG TABLET (FP) PO SCH (21:25)
[2017-03-24] MEDS ORDERED: INSULIN (NOVOLOG) ASPART 100 UNITS/ML 10ML VIAL ONE (21:33)
--- NOTE | 2017-03-24 23:05 | PN ---
Progress Note, Physician History of Present Illness: No new changes - Current Medication List Current Medications: Active Medications Albuterol Sulfate (Ventolin 0.083% Nebulizer Soln -) 1 amp NEB Q4H PRN PRN Reason: SHORT OF BREATH/WHEEZING Amlodipine Besylate (Norvasc -) 10 mg PO DAILY [facility] Last Admin: 03/24/17 09:33 Dose: 10 mg Doxazosin Mesylate (Cardura -) 4 mg PO DAILY [facility] Last Admin: 03/24/17 09:33 Dose: 4 mg Duloxetine HCl (Cymbalta -) 30 mg PO DAILY [facility] Last Admin: 03/24/17 09:33 Dose: 30 mg Folic Acid (Folic Acid -) 1 mg PO DAILY [facility] Last Admin: 03/24/17 09:33 Dose: 1 mg Gentamicin Sulfate (Garamycin 0.1% Cream -) 1 applic TP BID [facility] Last Admin: 03/24/17 21:24 Dose: Not Given Heparin Sodium (Porcine) (Heparin -) 5,000 unit SQ BID [facility] Last Admin: 03/24/17 21:25 Dose: 5,000 unit Meropenem (Merrem (Restricted To Id) -) 500 mg in 10 mls @ 120 mls/hr IVPUSH Q8H-IV [facility] Last Admin: 03/24/17 17:07 Dose: 120 mls/hr Sodium Chloride (Normal Saline -) 1,000 mls @ 83 mls/hr IV ASDIR [facility] Last Admin: 03/24/17 21:31 Dose: 83 mls/hr Insulin Aspart (Novolog Vial Sliding Scale -) 1 vial SQ ACHS [facility] PRN Reason: Protocol Last Admin: 03/24/17 21:33 Dose: 2 unit Insulin Detemir (Levemir Vial) 15 units SQ BID@0700,1630 [facility] Last Admin: 03/24/17 17:05 Dose: 15 units Metoprolol Tartrate (Lopressor -) 50 mg PO BID [facility] Last Admin: 03/24/17 21:25 Dose: 50 mg Mirtazapine (Remeron -) 30 mg PO HS [facility] Last Admin: 03/24/17 21:25 Dose: 30 mg Morphine Sulfate (Morphine Sulfate) 4 mg IVPUSH Q6H PRN PRN Reason: PAIN Last Admin: 03/24/17 21:25 Dose: 4 mg Oxycodone HCl (Roxicodone -) 10 mg PO Q4H PRN PRN Reason: PAIN 6-10 Last Admin: 03/24/17 17:06 Dose: 10 mg Sevelamer Carbonate (Renvela -) 800 mg PO TIDCM [facility] Last Admin: 03/24/17 17:06 Dose: 800 mg Sodium Bicarbonate (Sodium Bicarbonate -) 1,300 mg PO BID [facility] Last Admin: 03/24/17 21:25 Dose: 1,300 mg Trazodone HCl (Desyrel -) 300 mg PO [facility] Last Admin: 03/24/17 21:25 Dose: 300 mg - Objective Vital Signs: Vital Signs Temperature 98.0 F 03/24/17 22:00 Pulse Rate 72 03/24/17 22:00 Respiratory Rate 18 03/24/17 22:00 Blood Pressure 144/78 03/24/17 22:00 O2 Sat by Pulse Oximetry (%) 97 03/24/17 21:00 Constitutional: Yes: No Distress HENT: Yes: WNL Neck: Yes: WNL, Supple Cardiovascular: Yes: WNL, Regular Rate and Rhythm Respiratory: Yes: WNL, Regular Gastrointestinal: Yes: WNL, Normal Bowel Sounds, Soft Extremities: Yes: Other (lt amputation Rt foot ulcer) Labs: CBC, BMP 03/23/17 08:30 03/23/17 08:30 INR, PTT INR 1.14 (0.82-1.09) 03/18/17 17:50 Problem List - Problems (1) ARF (acute renal failure) Assessment/Plan: As per renal Monitor labs Code(s): N17.9 - ACUTE KIDNEY FAILURE, UNSPECIFIED Qualifiers: Acute renal failure type: unspecified Qualified Code(s): N17.9 - Acute kidney failure, unspecified (2) Gangrene of left foot Code(s): I96 - GANGRENE, NOT ELSEWHERE CLASSIFIED (3) Anemia Code(s): D64.9 - ANEMIA, UNSPECIFIED Qualifiers: Anemia type: due to chronic kidney disease (4) Depression Code(s): F32.9 - MAJOR DEPRESSIVE DISORDER, SINGLE EPISODE, UNSPECIFIED (5) 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 Code(s): E11.9 - TYPE 2 DIABETES MELLITUS WITHOUT COMPLICATIONS Qualifiers: 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 type: type 2 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 complication status: without complication 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 group home insulin use: without group home use Qualified Code(s): E11.9 - Type 2 diabetes mellitus without complications (6) HTN (hypertension) Code(s): I10 - ESSENTIAL (PRIMARY) HYPERTENSION Qualifiers: Hypertension type: essential hypertension Qualified Code(s): I10 - Essential (primary) hypertension
[2017-03-25] MEDS: MEROPENEM 500 MG PUSH 500 MG/10 ML DISP.SYRIN IVPUSH SCH ×3 (02:50→17:36)
[2017-03-25] MEDS ORDERED: DEXTROSE 50%-WATER - 25 GM/50 ML VIAL IVPUSH ONE ×2 (03:05→06:45)
[2017-03-25] MEDS ORDERED: DEXTROSE 50%-WATER - 25 GM/50 ML VIAL ONE ×2 (03:09→06:36)
[2017-03-25] MEDS: morphine SULFATE 4 MG/ML VIAL IVPUSH PRN ×2 (03:19→17:33)
[2017-03-25] MEDS: INSULIN DETEMIR 100 UNITS/ML MDV SQ SCH ×2 (06:16→21:24)
[2017-03-25] MEDS: INSULIN SLIDING SCALE (NOVOLOG) 1 VIAL SQ SCH ×4 (06:16→21:25)
[2017-03-25] MEDS ORDERED: DEXTROSE 5%-0.45% SALINE 1,000 ML IV SCH ×2 (06:45→13:06)
[2017-03-25] MEDS: SEVELAMER CARBONATE 800 MG TAB (FP) PO SCH ×3 (08:20→17:36)
[2017-03-25 08:21] LABS: ALBUMIN 1.5 g/dl (3.4-5.0); ALK PHOS 107 U/L (45-117); ANION GAP 8 (8-16); BILIRUBIN,TOTAL 0.4 mg/dL (0.2-1.0); CALCIUM 7.7 mg/dL (8.5-10.1); CO2 27 mmol/L (21-32); CREATININE 4.7 mg/dL (0.7-1.3); GLUCOSE,RANDOM 95 mg/dL (74-106); SGOT/AST 24 U/L (15-37); SGPT/ALT 17 U/L (12-78); TOT PROT 5.1 g/dl (6.4-8.2)
[2017-03-25] MEDS ORDERED: LIDOCAINE HCL 1%, 10 MG/ML (20ML VIAL) ONE (09:50)
[2017-03-25] MEDS ORDERED: HEPARIN NA (PORCINE) 5,000 UNITS/ML 1ML VIAL ONE (09:50)
[2017-03-25] MEDS: HEPARIN NA (PORCINE) 5,000 UNITS/ML 1ML VIAL SQ SCH ×2 (10:02→21:24)
[2017-03-25] MEDS ORDERED: PT OWN MED DRAWER 7, Y5N ONE (10:10)
[2017-03-25] MEDS: METOPROLOL TARTRATE 25 MG TABLET (FP) PO SCH (10:13)
[2017-03-25] MEDS: amLODIPine BESYLATE 10 MG TABLET (FP) PO SCH (10:13)
[2017-03-25] MEDS: SODIUM BICARBONATE 650 MG TABLET PO SCH ×2 (10:13→21:24)
[2017-03-25] MEDS: DULoxetine HCL 30 MG CAPSULE.DR (FP) PO SCH (10:19)
[2017-03-25] MEDS: FOLIC ACID 1 MG TABLET (FP) PO SCH (10:19)
[2017-03-25] MEDS: oxyCODONE HCL 5 MG TABLET PO PRN ×2 (10:20→21:28)
--- NOTE | 2017-03-25 10:49 | PATH ---
Surgical Pathology Report Patient Name: MARIAJOSE MALAVE [facility]. Rec. #: [id number] /Age/Gender: 1955 (Age: 61) / M Account: [id number] Location: [address] [place] [address]/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 SKIN AND SOFT TISSUE OF MALONEY SHOWS AREA OF GANGRENOUS NECROSIS. BONE MARROW FROM MARGIN FREE OF OSTEOMYELITIS. SKIN AND SOFT TISSUE FROM MARGIN SHOWS ISCHEMIC CHANGES OF SKELETAL MUSCLE, BUT NO NECROSIS IS IDENTIFIED. SECTIONS FROM VASCULAR BUNDLES SHOWS FOCAL CALCIFIC ATHEROSCLEROSIS OF ARTERIES, WITH PHLEBITIS OF ACCOMPANYING VEINS AND ACUTE INFLAMMATION WITHIN SURROUNDING SOFT TISSUE. Comment: Also see prior specimens [id number], [id number], and [id number]. Electronically Signed Raymond Welch M.D. Gross Description Received in formalin labeled "left foot," is a 16 cm in length portion of a below the knee amputation specimen. The distal foot has been previously amputated. The remainder of the proximal foot measures 13.5 cm in length. There is a 13.5 x 9.5 cm ulcerated, necrotic lesion comprising the volar surface of the foot as well as the previous amputation site. There is an additional 6.5 x 5.3 cm ulcerated, necrotic lesion on the distal maloney. This maloney lesion is 5 cm from the skin and soft tissue margin. Sectioning of the vasculature reveals focal atherosclerosis. Document Management Consultant sections are submitted in 6 cassettes as follows: 1-lesion from previous amputation site with underlying bone, following decalcification; 2-maloney lesion; 3-bone marrow from margin, following decalcification; 4-skin and soft tissue margin; 5-anterior tibial artery; 6-posterior tibial artery. /03/20/201703/20/2017
[2017-03-25] MEDS ORDERED: ONDANSETRON 4 MG/2 ML VIAL IVPUSH PRN ×2 (12:03→13:06)
[2017-03-25] MEDS ORDERED: MIDAZOLAM HCL 2 MG/2 ML SINGLE DOSE VIAL ONE (12:14)
[2017-03-25] MEDS ORDERED: SODIUM CHLORIDE 1,000 ML IV SCH ×2 (12:15→13:06)
[2017-03-25] MEDS ORDERED: LIDOCAINE HCL 1%, 10 MG/ML (20ML VIAL) INF ONE (12:38)
--- NOTE | 2017-03-25 12:57 | PN ---
Progress Note (short form) - Note Progress Note: [facility] S/P permacath today . NIRMAL chris. Will do formal bka on sat for closure. Al [place] DO
--- NOTE | 2017-03-25 12:59 | OP ---
Operative Note - Note: Operative Date: 03/25/17 Pre-Operative Diagnosis: ESRD Operation: Insertion of permacath Post-Operative Diagnosis: Same as Pre-op Surgeon: Al Daly Anesthesia: Fractional Estimated Blood Loss (mls): 10 Operative Report Dictated: Yes
[2017-03-25] MEDS ORDERED: ALBUTEROL SO4 0.083% IH SOL 2.5 MG/3 ML VIAL.NEB. NEB PRN (13:06)
[2017-03-25] MEDS: DOXAZOSIN MESYLATE 4 MG TABLET PO SCH (15:01)
[2017-03-25] MEDS: GENTAMICIN SO4 0.1% TOP CREAM 15 GM/TUBE TP SCH (15:02)
[2017-03-25 17:03] LABS: MCH 27.4 pg (25.7-33.7); MEAN CELL VOLUME 85.4 fl (80-96); PLATELET COUNT 452 K/MM3 (134-434); RDW 17.4 % (11.9-15.9); WHITE BLOOD COUNT 19.9 K/mm3 (4.0-10.0)
--- NOTE | 2017-03-25 17:14 | PN ---
Progress Note, Physician Chief Complaint: Infectious Disease f/u: History of Present Illness: Pt had permacath placed, for HD tomorrow. Remains afebrile, without distress. Pain in LEs. Denies abd pain/n/v/d or loose stools. - Current Medication List Current Medications: Active Medications Albuterol Sulfate (Ventolin 0.083% Nebulizer Soln -) 1 amp NEB Q4H PRN PRN Reason: SHORT OF BREATH/WHEEZING Amlodipine Besylate (Norvasc -) 10 mg PO DAILY [facility] Doxazosin Mesylate (Cardura -) 4 mg PO DAILY [facility] Duloxetine HCl (Cymbalta -) 30 mg PO DAILY [facility] Fentanyl (Sublimaze Injection -) 50 mcg IVPUSH [id number] PRN PRN Reason: PAIN Folic Acid (Folic Acid -) 1 mg PO DAILY [facility] Gentamicin Sulfate (Garamycin 0.1% Cream -) 1 applic TP BID [facility] Heparin Sodium (Porcine) (Heparin -) 5,000 unit SQ BID [facility] Meropenem (Merrem (Restricted To Id) -) 500 mg in 10 mls @ 120 mls/hr IVPUSH Q8H-IV [facility] Insulin Aspart (Novolog Vial Sliding Scale -) 1 vial SQ ACHS [facility] PRN Reason: Protocol Insulin Detemir (Levemir Vial) 15 units SQ BID@0700,2200 [facility] Metoprolol Tartrate (Lopressor -) 50 mg PO BID [facility] Mirtazapine (Remeron -) 30 mg PO HS [facility] Morphine Sulfate (Morphine Sulfate) 4 mg IVPUSH Q6H PRN PRN Reason: PAIN Ondansetron HCl (Zofran Injection) 4 mg IVPUSH Q6H PRN PRN Reason: NAUSEA AND/OR VOMITING Stop: 03/26/17 13:05 Oxycodone HCl (Roxicodone -) 10 mg PO Q4H PRN PRN Reason: PAIN 6-10 Sevelamer Carbonate (Renvela -) 800 mg PO TIDCM [facility] Sodium Bicarbonate (Sodium Bicarbonate -) 1,300 mg PO BID [facility] Trazodone HCl (Desyrel -) 300 mg PO HS [facility] - Objective Vital Signs: Vital Signs Temperature 97.4 F L 03/25/17 16:04 Pulse Rate 64 03/25/17 16:04 Respiratory Rate 18 03/25/17 16:04 Blood Pressure 125/70 03/25/17 16:04 O2 Sat by Pulse Oximetry (%) 97 03/25/17 16:04 Constitutional: Yes: No Distress, Calm Neck: Yes: Supple Cardiovascular: Yes: Regular Rate and Rhythm Respiratory: Yes: Regular Gastrointestinal: Yes: Normal Bowel Sounds, Soft Genitourinary: Yes: Serna Present (clear yellow urine) Extremities: Yes: Amputation (LLE guillotine amp) Wound/Incision: Yes: Clean/Dry Neurological: Yes: Alert, Oriented Labs: CBC, BMP 03/25/17 15:30 03/25/17 06:45 INR, PTT INR 1.14 (0.82-1.09) 03/18/17 17:50 Microbiology 03/18/17 Unknown Blood - Peripheral Venous Blood Culture - Final NO GROWTH AFTER 5 DAYS INCUBATION 03/18/17 Unknown Blood - Peripheral Venous Blood Culture - Final Beta Hem Streptococcus Group G 03/18/17 19:30 Foot - Left Gram Stain - Final 03/18/17 19:30 Foot - Left Wound Culture - Final Beta Hem Streptococcus Group G Diphtheroid/Corynebacterium Morganella Morganii 03/18/17 17:53 Urine - Urine Clean Catch Urine Culture - Final NO GROWTH OBTAINED Problem List - Problems (1) ARF (acute renal failure) Code(s): N17.9 - ACUTE KIDNEY FAILURE, UNSPECIFIED Qualifiers: Acute renal failure type: unspecified Qualified Code(s): N17.9 - Acute kidney failure, unspecified (2) Gangrene of left foot Code(s): I96 - GANGRENE, NOT ELSEWHERE CLASSIFIED (3) Syncope Code(s): R55 - SYNCOPE AND COLLAPSE Qualifiers: Syncope type: unspecified Qualified Code(s): R55 - Syncope and collapse (4) COPD with emphysema Code(s): J43.9 - EMPHYSEMA, UNSPECIFIED (5) Chronic renal insufficiency, stage IV (severe) Code(s): N18.4 - CHRONIC KIDNEY DISEASE, STAGE 4 (SEVERE) (6) Diabetic neuropathy Code(s): E11.40 - TYPE 2 DIABETES MELLITUS WITH DIABETIC NEUROPATHY, UNSP Qualifiers: 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 type: type 2 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 complication detail: diabetic polyneuropathy Qualified Code(s): E11.42 - Type 2 diabetes mellitus with diabetic polyneuropathy (7) Foot infection Code(s): L08.9 - LOCAL INFECTION OF THE SKIN AND SUBCUTANEOUS TISSUE, UNSP (8) Neuropathy Code(s): G62.9 - POLYNEUROPATHY, UNSPECIFIED (9) S/P amputation Code(s): Z89.9 - ACQUIRED ABSENCE OF LIMB, UNSPECIFIED (10) Type 2 diabetes mellitus with foot ulcer Code(s): E11.621 - TYPE 2 DIABETES MELLITUS WITH FOOT ULCER; L97.509 - NON- PRESSURE CHRONIC ULCER OTH PRT UNSP FOOT W UNSP SEVERITY Assessment/Plan Lt foot collection s/p I+D now s/p Lt foot guillotine amputation Rt 5th toe ulcer permacath placed leukocytosis f/u cbc and blood cultures sent cont Meropenem IV for now surgery following continue monitor vitals
[2017-03-25] MEDS ORDERED: INSULIN (NOVOLOG) ASPART 100 UNITS/ML 10ML VIAL ONE (17:21)
--- NOTE | 2017-03-25 17:23 | PN ---
Progress Note, Physician - Current Medication List Current Medications: Active Medications Albuterol Sulfate (Ventolin 0.083% Nebulizer Soln -) 1 amp NEB Q4H PRN PRN Reason: SHORT OF BREATH/WHEEZING Amlodipine Besylate (Norvasc -) 10 mg PO DAILY [facility] Doxazosin Mesylate (Cardura -) 4 mg PO DAILY [facility] Duloxetine HCl (Cymbalta -) 30 mg PO DAILY [facility] Fentanyl (Sublimaze Injection -) 50 mcg IVPUSH [id number] PRN PRN Reason: PAIN Folic Acid (Folic Acid -) 1 mg PO DAILY [facility] Gentamicin Sulfate (Garamycin 0.1% Cream -) 1 applic TP BID [facility] Heparin Sodium (Porcine) (Heparin -) 5,000 unit SQ BID [facility] Meropenem (Merrem (Restricted To Id) -) 500 mg in 10 mls @ 120 mls/hr IVPUSH Q8H-IV [facility] Insulin Aspart (Novolog Vial Sliding Scale -) 1 vial SQ ACHS [facility] PRN Reason: Protocol Insulin Detemir (Levemir Vial) 15 units SQ BID@0700,2200 [facility] Metoprolol Tartrate (Lopressor -) 50 mg PO BID [facility] Mirtazapine (Remeron -) 30 mg PO HS [facility] Morphine Sulfate (Morphine Sulfate) 4 mg IVPUSH Q6H PRN PRN Reason: PAIN Ondansetron HCl (Zofran Injection) 4 mg IVPUSH Q6H PRN PRN Reason: NAUSEA AND/OR VOMITING Stop: 03/26/17 13:05 Oxycodone HCl (Roxicodone -) 10 mg PO Q4H PRN PRN Reason: PAIN 6-10 Sevelamer Carbonate (Renvela -) 800 mg PO TIDCM [facility] Sodium Bicarbonate (Sodium Bicarbonate -) 1,300 mg PO BID [facility] Trazodone HCl (Desyrel -) 300 mg PO HS [facility] - Objective Vital Signs: Vital Signs Temperature 97.4 F L 03/25/17 16:04 Pulse Rate 64 03/25/17 16:04 Respiratory Rate 18 03/25/17 16:04 Blood Pressure 125/70 03/25/17 16:04 O2 Sat by Pulse Oximetry (%) 97 03/25/17 16:04 Constitutional: Yes: No Distress HENT: Yes: Atraumatic Neck: Yes: Supple Cardiovascular: Yes: Regular Rate and Rhythm Respiratory: Yes: CTA Bilaterally Gastrointestinal: Yes: Normal Bowel Sounds Extremities: Yes: Other (LLEX IN DRESSING) Labs: CBC, BMP 03/25/17 15:30 03/25/17 06:45 INR, PTT INR 1.14 (0.82-1.09) 03/18/17 17:50 Problem List - Problems (1) ARF (acute renal failure) Assessment/Plan: on hd dr mendoza Code(s): N17.9 - ACUTE KIDNEY FAILURE, UNSPECIFIED Qualifiers: Acute renal failure type: unspecified Qualified Code(s): N17.9 - Acute kidney failure, unspecified (2) Hyperkalemia Assessment/Plan: on hd..will improve Code(s): E87.5 - HYPERKALEMIA (3) Hyponatremia Assessment/Plan: monitor ..on hd Code(s): E87.1 - HYPO-OSMOLALITY AND HYPONATREMIA (4) Syncope Assessment/Plan: resolved Code(s): R55 - SYNCOPE AND COLLAPSE Qualifiers: Syncope type: unspecified Qualified Code(s): R55 - Syncope and collapse (5) 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 Assessment/Plan: bgms insulin Code(s): E11.9 - TYPE 2 DIABETES MELLITUS WITHOUT COMPLICATIONS Qualifiers: 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 type: type 2 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 complication status: without complication 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 exterminator insulin use: without group home use Qualified Code(s): E11.9 - Type 2 diabetes mellitus without complications (6) GERD (gastroesophageal reflux disease) Code(s): K21.9 - GASTRO-ESOPHAGEAL REFLUX DISEASE WITHOUT ESOPHAGITIS (7) HTN (hypertension) Assessment/Plan: on meds stable Code(s): I10 - ESSENTIAL (PRIMARY) HYPERTENSION Qualifiers: Hypertension type: essential hypertension Qualified Code(s): I10 - Essential (primary) hypertension (8) Type 2 diabetes mellitus with foot ulcer Code(s): E11.621 - TYPE 2 DIABETES MELLITUS WITH FOOT ULCER; L97.509 - NON- PRESSURE CHRONIC ULCER OTH PRT UNSP FOOT W UNSP SEVERITY
--- NOTE | 2017-03-25 18:16 | PN ---
Progress Note (short form) - Note Progress Note: Renal Follow up for FROYLAN on CKD Pt seen and examined at the bedside awake and alert c/o of swollen testicles no sob, chest pain, abd pain s/p permacath placement today Vital Signs Temperature 97.4 F L 03/25/17 16:04 Pulse Rate 64 03/25/17 16:04 Respiratory Rate 18 03/25/17 16:04 Blood Pressure 125/70 03/25/17 16:04 O2 Sat by Pulse Oximetry (%) 97 03/25/17 16:04 Intake & Output 03/22/17 03/23/17 03/24/17 03/25/17 23:59 23:59 23:59 23:59 Intake Total 881 2481 2959 1300 Output Total 350 556 9329 200 Balance 481 1581 1759 1100 Weight 97.976 kg 53.099 kg 100.045 kg NAD awake and alert RRR Dec Bs at lung bases, no rales soft NT/ND Trace to 1+ Le edema CBC, BMP 03/25/17 15:30 03/25/17 06:45 Current Medications Albuterol Sulfate (Ventolin 0.083% Nebulizer Soln -) 1 amp NEB Q4H PRN PRN Reason: SHORT OF BREATH/WHEEZING Amlodipine Besylate (Norvasc -) 10 mg PO DAILY [facility] Doxazosin Mesylate (Cardura -) 4 mg PO DAILY [facility] Duloxetine HCl (Cymbalta -) 30 mg PO DAILY [facility] Fentanyl (Sublimaze Injection -) 50 mcg IVPUSH [id number] PRN PRN Reason: PAIN Folic Acid (Folic Acid -) 1 mg PO DAILY [facility] Gentamicin Sulfate (Garamycin 0.1% Cream -) 1 applic TP BID [facility] Heparin Sodium (Porcine) (Heparin -) 5,000 unit SQ BID [facility] Meropenem (Merrem (Restricted To Id) -) 500 mg in 10 mls @ 120 mls/hr IVPUSH Q8H-IV [facility] Last Admin: 03/25/17 17:36 Dose: 120 mls/hr Insulin Aspart (Novolog Vial Sliding Scale -) 1 vial SQ ACHS [facility] PRN Reason: Protocol Last Admin: 03/25/17 17:29 Dose: 4 units Insulin Detemir (Levemir Vial) 15 units SQ BID@0700,2200 [facility] Metoprolol Tartrate (Lopressor -) 50 mg PO BID [facility] Mirtazapine (Remeron -) 30 mg PO HS [facility] Morphine Sulfate (Morphine Sulfate) 4 mg IVPUSH Q6H PRN PRN Reason: PAIN Last Admin: 03/25/17 17:33 Dose: 4 mg Ondansetron HCl (Zofran Injection) 4 mg IVPUSH Q6H PRN PRN Reason: NAUSEA AND/OR VOMITING Stop: 03/26/17 13:05 Oxycodone HCl (Roxicodone -) 10 mg PO Q4H PRN PRN Reason: PAIN 6-10 Sevelamer Carbonate (Renvela -) 800 mg PO TIDCM [facility] Last Admin: 03/25/17 17:36 Dose: 800 mg Sodium Bicarbonate (Sodium Bicarbonate -) 1,300 mg PO BID [facility] Trazodone HCl (Desyrel -) 300 mg PO HS [facility] 61 year old gentleman with PMhx of CKD stage 4 (baseline Cr 2.8), Hypertension , DM, PVD, Depression who presented with syncope and found to have acute on chronic renal failure with hyperkalemia and hyponatremia. #Acute Renal Failure now with ESRD on HD Pt s/p permacath placement today, for dialysis tomorrow will need AVF placement and outpatient HD unit placement dose all meds for intermittent HD Renal diet Fluid restriction fo 1.2L daily start Torsemide 40mg Daily #Leukocytosis/Sepsis/infected LE wound continue Abx as per ID s/p left foot amputation pain control #Acute on Chronic anemia s/p PRBC transfusions will give ADRIAN with HD Miguel Jansen DO Problem List - Problems (1) Hyponatremia Code(s): E87.1 - HYPO-OSMOLALITY AND HYPONATREMIA (2) ARF (acute renal failure) Code(s): N17.9 - ACUTE KIDNEY FAILURE, UNSPECIFIED Qualifiers: Acute renal failure type: unspecified Qualified Code(s): N17.9 - Acute kidney failure, unspecified (3) Hyperkalemia Code(s): E87.5 - HYPERKALEMIA (4) Syncope Code(s): R55 - SYNCOPE AND COLLAPSE Qualifiers: Syncope type: unspecified Qualified Code(s): R55 - Syncope and collapse (5) FROYLAN (acute kidney injury) Code(s): N17.9 - ACUTE KIDNEY FAILURE, UNSPECIFIED
--- NOTE | 2017-03-25 20:04 | PN ---
Progress Note (short form) - Note Progress Note: Vascular Surgery Vein mapping ordered for look at veins for avf placement. Al evgas DO
[2017-03-25] MEDS ORDERED: traZODone HCL 50 MG TABLET (FP) ONE (21:17)
--- NOTE | 2017-03-25 21:23 | PN ---
Progress Note, Physician Chief Complaint: s/p Incision and drainage left foot and above ankle resection pending formal transtibial resection as well as a 5th metatarsal ulceration contralaterally ( right foot) - Current Medication List Current Medications: Active Medications Albuterol Sulfate (Ventolin 0.083% Nebulizer Soln -) 1 amp NEB Q4H PRN PRN Reason: SHORT OF BREATH/WHEEZING Amlodipine Besylate (Norvasc -) 10 mg PO DAILY [facility] Collagenase (Santyl -) 1 applic TP DAILY [facility] Doxazosin Mesylate (Cardura -) 4 mg PO DAILY [facility] Duloxetine HCl (Cymbalta -) 30 mg PO DAILY [facility] Epoetin Joe (Procrit -) 10,000 unit SQ ONCE ONE Stop: 03/26/17 06:01 Fentanyl (Sublimaze Injection -) 50 mcg IVPUSH [id number] PRN PRN Reason: PAIN Folic Acid (Folic Acid -) 1 mg PO DAILY [facility] Heparin Sodium (Porcine) (Heparin -) 5,000 unit SQ BID [facility] Meropenem (Merrem (Restricted To Id) -) 500 mg in 10 mls @ 120 mls/hr IVPUSH Q8H-IV [facility] Last Admin: 03/25/17 17:36 Dose: 120 mls/hr Insulin Aspart (Novolog Vial Sliding Scale -) 1 vial SQ ACHS [facility] PRN Reason: Protocol Last Admin: 03/25/17 17:29 Dose: 4 units Insulin Detemir (Levemir Vial) 15 units SQ BID@0700,2200 [facility] Metoprolol Tartrate (Lopressor -) 50 mg PO BID [facility] Mirtazapine (Remeron -) 30 mg PO HS [facility] Morphine Sulfate (Morphine Sulfate) 4 mg IVPUSH Q6H PRN PRN Reason: PAIN Last Admin: 03/25/17 17:33 Dose: 4 mg Ondansetron HCl (Zofran Injection) 4 mg IVPUSH Q6H PRN PRN Reason: NAUSEA AND/OR VOMITING Stop: 03/26/17 13:05 Oxycodone HCl (Roxicodone -) 10 mg PO Q4H PRN PRN Reason: PAIN 6-10 Sevelamer Carbonate (Renvela -) 800 mg PO TIDCM [facility] Last Admin: 03/25/17 17:36 Dose: 800 mg Sodium Bicarbonate (Sodium Bicarbonate -) 1,300 mg PO BID [facility] Torsemide (Demadex -) 40 mg PO DAILY [facility] Trazodone HCl (Desyrel -) 300 mg PO HS [facility] - Objective Vital Signs: Vital Signs Temperature 36.9 C 03/25/17 18:00 Pulse Rate 64 03/25/17 18:00 Respiratory Rate 18 03/25/17 18:00 Blood Pressure 149/81 03/25/17 18:00 O2 Sat by Pulse Oximetry (%) 96 03/25/17 20:38 Constitutional: Yes: Moderate Distress Extremities: Yes: Amputation Edema: LLE: 1+, RLE: 1+ Peripheral Pulses: Right Dorsalis Pedis: 1+ Wound/Incision: Yes: Dressing Removed, Excoriated, Other (necrotic ulcer submet head 5 right----- significant intrinsic muscular and soft tissue atrophy) Psychiatric: Yes: Other (SULLEN/DEPRESSED) Additional Findings/Remarks: Patient is status post incision and drainage of the left foot, a guillotine amputation just proximal to the left ankle, a perma catheter insertion. This examiner returns to bedside to attend to the right foot sub metatarsal head five ulceration. In contrast to yesterday evening, when patient was upbeat , patient's mood has deteriorated significantly. The patient does not seem to be aware that he is in end-stage renal disease and that the hemodialysis will need to be permanent. Try to encourage patient to lift up his mood. Suggest a psychiatric consult in light of patient's current health situation. Explained the necessity of the magnetic resonance imaging of the right foot but encourage patient by stating that plain radiograph changes in contrast to radiographs taken a couple of months ago are slight. Despite this the radiographs do you show ostial lysis and possible periosteal proliferation and therefore osteomyelitis needs to be ruled out. Performed a surgical debridement on the right foot. Ulceration needs to be augmented with enzymatic debridement and will place order. Discussed long-term plan with Dr. Daly who plans to perform the below knee resection on the left in two days. Dr. Daly will also perform the arteriovenous fistula for hemodialysis. Pressed for the MRI to be performed which should be tomorrow. Will plan possible osseous biopsy on the right foot contingent on the results there of. Please note that this evaluation and management is to deal with the right foot in this independent of the surgical procedure of this examiner performed on the left foot. Labs: CBC, BMP 03/25/17 15:30 03/25/17 06:45 INR, PTT INR 1.14 (0.82-1.09) 03/18/17 17:50
[2017-03-25] MEDS: METOPROLOL TARTRATE 50 MG TABLET (FP) PO SCH (21:24)
[2017-03-25] MEDS: traZODone HCL 100 MG TABLET (FP) PO SCH (21:24)
[2017-03-25] MEDS: MIRTAZAPINE 30 MG TABLET (FP) PO SCH (21:24)
[2017-03-25 21:31] LABS: METAMYELOCYTE 1 % (0-2); MYELOCYTE 1 % (0-2); REACTIVE LYMPHOCYTES 2 % (0-80); TOTAL CELLS COUNTED 100
[2017-03-25 21:32] LABS: PLATELET ESTIMATE SLT INCREASE
--- NOTE | 2017-03-25 21:35 | OP ---
DATE OF OPERATION: 03/25/2017 PREOPERATIVE DIAGNOSIS: End-stage renal disease. POSTOPERATIVE DIAGNOSIS: End-stage renal disease. PROCEDURE: Insertion of PermCath. SURGEON: Al Castillo DO ANESTHESIA: Fractional. BLOOD LOSS: 10 mL INDICATION FOR PROCEDURE: The patient is a 61-year-old male who recently had a guillotine amputation for a left lower extremity wet gangrene, now in acute renal failure and needs temporary dialysis catheter placement. Patient was consented for the procedure, understanding all risks, benefits, and alternatives, then taken to the operating room. DESCRIPTION OF PROCEDURE: Once in the operating room, laid on the operating table in supine manner, and the area of the right neck and chest were prepped and draped in a sterile surgical manner. Under ultrasound guidance, we were able to visualize the right internal jugular vein, and 10 mL of % were injected there. We then took our micropuncture needle and punctured the right internal jugular vein under ultrasound guidance. A micropuncture wire was inserted, and micropuncture sheath was inserted. A 0.035 floppy guidewire was then inserted under fluoroscopy. We then injected 10 mL of above and below the clavicle. We then took a number-11 blade, and we made a 1-cm incision at the puncture site. We then took a 15 blade and made a 1-cm incision below the clavicle. We then tunneled the PermCath up to the puncture site. We then went ahead and placed our breakaway sheath over the guidewire into the vein under fluoroscopy, and the cannula and guidewire were removed. Catheter was placed inside the sheath. Sheath was broken away as the catheter was placed inside the vein. Neck of the catheter was nice and smooth. Tip of the catheter was located outside the right atrium. We then alma rosa back on each port of the catheter, and there was good flow. Heparinized saline was injected, and 2000 units of IV heparin were injected into each port. Next, 4-0 Biosyn was used, and 2 simple stitches were placed at the puncture site, 3-0 nylon used, and the catheter was attached to the skin. Biopatch, Steri-Strips, 4 x 4, and Tegaderm were placed. The patient tolerated the procedure with no complications. The patient transferred to PACU in stable condition, where chest x-ray will be obtained. AL CASTILLO DO [id number]
[2017-03-25] MEDS ORDERED: GENTAMICIN SO4 0.1% TOP CREAM 15 GM/TUBE TP SCH (22:00)
[2017-03-26] MEDS: MEROPENEM 500 MG PUSH 500 MG/10 ML DISP.SYRIN IVPUSH SCH ×2 (01:16→19:00)
[2017-03-26] MEDS: morphine SULFATE 4 MG/ML VIAL IVPUSH PRN ×2 (01:21→18:51)
[2017-03-26] MEDS: INSULIN DETEMIR 100 UNITS/ML MDV SQ SCH ×2 (06:34→22:05)
[2017-03-26] MEDS: INSULIN SLIDING SCALE (NOVOLOG) 1 VIAL SQ SCH ×4 (06:35→22:07)
[2017-03-26] MEDS ORDERED: INSULIN (NOVOLOG) ASPART 100 UNITS/ML 10ML VIAL ONE (06:35)
[2017-03-26] MEDS: oxyCODONE HCL 5 MG TABLET PO PRN (06:40)
[2017-03-26] MEDS: SEVELAMER CARBONATE 800 MG TAB (FP) PO SCH ×3 (08:23→18:36)
[2017-03-26] MEDS ORDERED: TORSEMIDE 20 MG TABLET (FP) PO SCH (10:00)
[2017-03-26] MEDS: HEPARIN NA (PORCINE) 5,000 UNITS/ML 1ML VIAL SQ SCH ×2 (10:00→22:03)
[2017-03-26] MEDS: SODIUM BICARBONATE 650 MG TABLET PO SCH ×2 (10:00→22:03)
[2017-03-26] MEDS ORDERED: DULoxetine HCL 30 MG CAPSULE.DR (FP) PO SCH (10:00)
[2017-03-26] MEDS ORDERED: FOLIC ACID 1 MG TABLET (FP) PO SCH (10:00)
--- NOTE | 2017-03-26 10:16 | SPA.PREOP ---
- PRE-OP NOTE Dx: s/p LLNy pugh amp now ready for formal transtibal amp Planned Procedure: LLE BKA Surgeon: Al Daly Consent: To be obtained by surgeon after risks, benefits and alternatives explained to patient. Last Vital Signs Temp Pulse Resp BP Pulse Ox 98.2 F 73 20 142/78 96 03/26/17 05:58 03/26/17 05:58 03/26/17 05:58 03/26/17 05:58 03/25/17 20:38 CBC, BMP 03/25/17 15:30 03/25/17 06:45 INR, PTT INR 1.14 (0.82-1.09) 03/18/17 17:50 - ASSESSMENT/PLAN Problem List - Problems (1) Gangrene of left foot Assessment/Plan: 1. NPO after midnight except po meds 2. GI/DVT PPX 3. Medical optimization / clearance 4. Type and Screen 5. 2 PRBC on hold for OR Code(s): I96 - GANGRENE, NOT ELSEWHERE CLASSIFIED Visit type - Case Type Case Type: ED Admission
--- NOTE | 2017-03-26 11:05 | OP ---
DATE OF OPERATION: DATE OF DICTATION: 03/25/2017 SURGEON: Dr. Niurka Galvan SURGERY: Excisional debridement to the subcutaneous tissue on the right foot, sub metatarsal head 5. PREOPERATIVE DIAGNOSIS: Necrotic diabetic foot ulceration. POSTOPERATIVE DIAGNOSIS: Necrotic diabetic foot ulceration. ANESTHESIA: None needed (patient insensate). CLINICAL INDICATIONS TO THE PROCEDURE: Patient who has undergone an incision and drainage and guillotine resection of the left foot has an ulceration on the contralateral or right foot. The ulceration needs surgical debridement in order to ensure healing. SURGICAL NARRATIVE: After prepping the patient in the usual manner, it was noted that the right foot was bandaged. The bandage was removed, and with the use of a No. 10 scalpel blade, debridement to the subcutaneous tissue including removing vital tissue was performed. There was undermining from approximately 10 o'clock to 12 o'clock on the sub metatarsal head 5 region of the left foot. Patient did bleed well. However, there was significant amount of necrosis still visible within the ulceration that could not be removed by sharp debridement. Post-debridement measurements were approximately 4.1 x 2.3 cm with negligible depth. Also noted was a significant amount of intrinsic muscular atrophy and soft tissue atrophy. The wound was then cleansed, and a dry sterile dressing was applied. Enzymatic debridement will be necessary to augment this procedure. NIURKA GALVAN DPM [id number] MTDD
--- NOTE | 2017-03-26 13:54 | PN ---
Progress Note (short form) - Note Progress Note: Anesthesia POD#1 S/P permacath insertion under MAC VSS, no complaints,getting dialysis. Fely Garcia MD.
--- NOTE | 2017-03-26 14:03 | PN ---
Progress Note (short form) - Note Progress Note: Renal Follow up for FROYLAN on CKD Pt seen and examined during dialysis BP stable pt without acute complaints HD via tunneled catheter goal UF is 1.5-2 L no sob, chest pain, N/V/D Vital Signs Temperature 98.2 F 03/26/17 05:58 Pulse Rate 73 03/26/17 05:58 Respiratory Rate 20 03/26/17 05:58 Blood Pressure 142/78 03/26/17 05:58 O2 Sat by Pulse Oximetry (%) 96 03/25/17 20:38 Intake & Output 03/23/17 03/24/17 03/25/17 03/26/17 23:59 23:59 23:59 23:59 Intake Total 2481 2959 1550 400 Output Total 900 1200 500 250 Balance 1581 1759 1050 150 Weight 97.976 kg 98.43 kg 100.045 kg 100.839 kg NAD awake and alert RRR Dec Bs at lung bases, no rales soft NT/ND Trace to 1+ Le edema CBC, BMP 03/25/17 15:30 03/25/17 06:45 Current Medications Albuterol Sulfate (Ventolin 0.083% Nebulizer Soln -) 1 amp NEB Q4H PRN PRN Reason: SHORT OF BREATH/WHEEZING Amlodipine Besylate (Norvasc -) 10 mg PO DAILY [facility] Collagenase (Santyl -) 1 applic TP DAILY [facility] Doxazosin Mesylate (Cardura -) 4 mg PO DAILY [facility] Duloxetine HCl (Cymbalta -) 30 mg PO DAILY [facility] Epoetin Joe (Procrit -) 10,000 unit SQ ONCE ONE Stop: 03/26/17 06:01 Fentanyl (Sublimaze Injection -) 50 mcg IVPUSH [id number] PRN PRN Reason: PAIN Folic Acid (Folic Acid -) 1 mg PO DAILY [facility] Heparin Sodium (Porcine) (Heparin -) 5,000 unit SQ BID [facility] Last Admin: 03/25/17 21:24 Dose: 5,000 unit Meropenem (Merrem (Restricted To Id) -) 500 mg in 10 mls @ 120 mls/hr IVPUSH Q8H-IV [facility] Last Admin: 03/26/17 01:16 Dose: 120 mls/hr Insulin Aspart (Novolog Vial Sliding Scale -) 1 vial SQ ACHS [facility] PRN Reason: Protocol Last Admin: 03/26/17 06:35 Dose: 4 units Insulin Detemir (Levemir Vial) 15 units SQ BID@0700,2200 [facility] Last Admin: 03/26/17 06:34 Dose: 15 units Metoprolol Tartrate (Lopressor -) 50 mg PO BID [facility] Last Admin: 03/25/17 21:24 Dose: 50 mg Mirtazapine (Remeron -) 30 mg PO HS [facility] Last Admin: 03/25/17 21:24 Dose: 30 mg Morphine Sulfate (Morphine Sulfate) 4 mg IVPUSH Q6H PRN PRN Reason: PAIN Last Admin: 03/26/17 01:21 Dose: 4 mg Oxycodone HCl (Roxicodone -) 10 mg PO Q4H PRN PRN Reason: PAIN 6-10 Last Admin: 03/26/17 06:40 Dose: 10 mg Sevelamer Carbonate (Renvela -) 800 mg PO TIDCM [facility] Last Admin: 03/26/17 08:23 Dose: 800 mg Sodium Bicarbonate (Sodium Bicarbonate -) 1,300 mg PO BID [facility] Last Admin: 03/25/17 21:24 Dose: 1,300 mg Torsemide (Demadex -) 40 mg PO DAILY [facility] Trazodone HCl (Desyrel -) 300 mg PO HS [facility] Last Admin: 03/25/17 21:24 Dose: 300 mg 61 year old gentleman with PMhx of CKD stage 4 (baseline Cr 2.8), Hypertension , DM, PVD, Depression who presented with syncope and found to have acute on chronic renal failure with hyperkalemia and hyponatremia. #Acute Renal Failure now with ESRD on HD HD today with goal UF of 2L outpatient HD unit placement pending will need AVF placement Dosea all meds for intermittent HD Renal Diet #Leukocytosis/Sepsis/infected LE wound continue Abx as per ID s/p left foot amputation pain control #Acute on Chronic anemia s/p PRBC transfusions will give ADRIAN with HD Miguel Jansen DO Problem List - Problems (1) Hyponatremia Code(s): E87.1 - HYPO-OSMOLALITY AND HYPONATREMIA (2) ARF (acute renal failure) Code(s): N17.9 - ACUTE KIDNEY FAILURE, UNSPECIFIED Qualifiers: Acute renal failure type: unspecified Qualified Code(s): N17.9 - Acute kidney failure, unspecified (3) Hyperkalemia Code(s): E87.5 - HYPERKALEMIA (4) Syncope Code(s): R55 - SYNCOPE AND COLLAPSE Qualifiers: Syncope type: unspecified Qualified Code(s): R55 - Syncope and collapse (5) FROYLAN (acute kidney injury) Code(s): N17.9 - ACUTE KIDNEY FAILURE, UNSPECIFIED
[2017-03-26] MEDS ORDERED: EPOETIN ALFA 10,000 UNIT/1 ML VIAL SQ ONE (14:30)
[2017-03-26 14:32] LABS: MCH 27.1 pg (25.7-33.7); MEAN CELL VOLUME 84.7 fl (80-96); MEAN PLT VOLUME 8.1 fl (7.5-11.1); PLATELET COUNT 450 K/MM3 (134-434); RDW 17.5 % (11.9-15.9); WHITE BLOOD COUNT 21.3 K/mm3 (4.0-10.0)
[2017-03-26 14:56] LABS: ANION GAP 8 (8-16); CALCIUM 7.7 mg/dL (8.5-10.1); CO2 28 mmol/L (21-32); CREATININE 4.8 mg/dL (0.7-1.3); GLUCOSE,RANDOM 119 mg/dL (74-106); PHOSPHOROUS 6.1 mg/dL (2.5-4.9)
[2017-03-26] MEDS: METOPROLOL TARTRATE 50 MG TABLET (FP) PO SCH ×2 (18:34→22:03)
[2017-03-26] MEDS: amLODIPine BESYLATE 10 MG TABLET (FP) PO SCH (18:35)
[2017-03-26] MEDS ORDERED: PT OWN MED DRAWER 7, Y5N ONE ×2 (18:38→21:52)
[2017-03-26] MEDS: DOXAZOSIN MESYLATE 4 MG TABLET PO SCH (18:40)
[2017-03-26] MEDS: CEFEPIME 1 GM in DEXTROSE 5%-WATER - 100 ML IVPB SCH (18:51)
--- NOTE | 2017-03-26 18:58 | PN ---
Progress Note, Physician History of Present Illness: s/p surgery - Current Medication List Current Medications: Active Medications Albuterol Sulfate (Ventolin 0.083% Nebulizer Soln -) 1 amp NEB Q4H PRN PRN Reason: SHORT OF BREATH/WHEEZING Amlodipine Besylate (Norvasc -) 10 mg PO DAILY [facility] Last Admin: 03/26/17 18:35 Dose: 10 mg Collagenase (Santyl -) 1 applic TP DAILY [facility] Doxazosin Mesylate (Cardura -) 4 mg PO DAILY [facility] Last Admin: 03/26/17 18:40 Dose: 4 mg Duloxetine HCl (Cymbalta -) 30 mg PO DAILY [facility] Last Admin: 03/26/17 18:35 Dose: 30 mg Fentanyl (Sublimaze Injection -) 50 mcg IVPUSH [id number] PRN PRN Reason: PAIN Folic Acid (Folic Acid -) 1 mg PO DAILY [facility] Last Admin: 03/26/17 18:35 Dose: 1 mg Heparin Sodium (Porcine) (Heparin -) 5,000 unit SQ BID [facility] Last Admin: 03/26/17 10:00 Dose: Not Given Cefepime HCl 1 gm/ Dextrose 100 mls @ 200 mls/hr IVPB DAILY [facility] Last Admin: 03/26/17 18:51 Dose: 200 mls/hr Daptomycin 600 mg/ Sodium (Chloride) 100 mls @ 200 mls/hr IVPB DAILY@2200 [facility] Insulin Aspart (Novolog Vial Sliding Scale -) 1 vial SQ ACHS [facility] PRN Reason: Protocol Last Admin: 03/26/17 16:35 Dose: Not Given Insulin Detemir (Levemir Vial) 15 units SQ BID@0700,2200 [facility] Last Admin: 03/26/17 06:34 Dose: 15 units Metoprolol Tartrate (Lopressor -) 50 mg PO BID [facility] Last Admin: 03/26/17 18:34 Dose: 50 mg Mirtazapine (Remeron -) 30 mg PO HS [facility] Last Admin: 03/25/17 21:24 Dose: 30 mg Morphine Sulfate (Morphine Sulfate) 4 mg IVPUSH Q6H PRN PRN Reason: PAIN Last Admin: 03/26/17 18:51 Dose: 4 mg Oxycodone HCl (Roxicodone -) 10 mg PO Q4H PRN PRN Reason: PAIN 6-10 Last Admin: 03/26/17 06:40 Dose: 10 mg Sevelamer Carbonate (Renvela -) 800 mg PO TIDCM [facility] Last Admin: 03/26/17 18:36 Dose: 800 mg Sodium Bicarbonate (Sodium Bicarbonate -) 1,300 mg PO BID [facility] Last Admin: 03/26/17 10:00 Dose: Not Given Torsemide (Demadex -) 40 mg PO DAILY [facility] Trazodone HCl (Desyrel -) 300 mg PO HS [facility] Last Admin: 03/25/17 21:24 Dose: 300 mg - Objective Vital Signs: Vital Signs Temperature 97.9 F 03/26/17 14:21 Pulse Rate 81 03/26/17 18:32 Respiratory Rate 18 03/26/17 18:00 Blood Pressure 161/91 03/26/17 18:32 O2 Sat by Pulse Oximetry (%) 95 03/26/17 09:00 Constitutional: Yes: No Distress HENT: Yes: Atraumatic Neck: Yes: Supple Cardiovascular: Yes: Regular Rate and Rhythm Respiratory: Yes: CTA Bilaterally Gastrointestinal: Yes: Normal Bowel Sounds Extremities: Yes: Other (LLEX IN DRESSING) Neurological: Yes: Alert, Oriented Labs: CBC, BMP 03/26/17 13:00 INR, PTT INR 1.14 (0.82-1.09) 03/18/17 17:50 Problem List - Problems (1) ARF (acute renal failure) Assessment/Plan: on hd dr mendoza Code(s): N17.9 - ACUTE KIDNEY FAILURE, UNSPECIFIED Qualifiers: Acute renal failure type: unspecified Qualified Code(s): N17.9 - Acute kidney failure, unspecified (2) Hyperkalemia Assessment/Plan: on hd..will improve Code(s): E87.5 - HYPERKALEMIA (3) Hyponatremia Assessment/Plan: monitor ..on hd Code(s): E87.1 - HYPO-OSMOLALITY AND HYPONATREMIA (4) Syncope Assessment/Plan: resolved Code(s): R55 - SYNCOPE AND COLLAPSE Qualifiers: Syncope type: unspecified Qualified Code(s): R55 - Syncope and collapse (5) 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 Assessment/Plan: bgms insulin Code(s): E11.9 - TYPE 2 DIABETES MELLITUS WITHOUT COMPLICATIONS Qualifiers: 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 type: type 2 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 complication status: without complication 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 exterminator insulin use: without chcf use Qualified Code(s): E11.9 - Type 2 diabetes mellitus without complications (6) GERD (gastroesophageal reflux disease) Code(s): K21.9 - GASTRO-ESOPHAGEAL REFLUX DISEASE WITHOUT ESOPHAGITIS (7) HTN (hypertension) Assessment/Plan: on meds stable Code(s): I10 - ESSENTIAL (PRIMARY) HYPERTENSION Qualifiers: Hypertension type: essential hypertension Qualified Code(s): I10 - Essential (primary) hypertension (8) Type 2 diabetes mellitus with foot ulcer Assessment/Plan: dr [place] on case S/P AMPUTATION LEFT FOOT FURTHER PLAN PER SURGERY Code(s): E11.621 - TYPE 2 DIABETES MELLITUS WITH FOOT ULCER; L97.509 - NON- PRESSURE CHRONIC ULCER OTH PRT UNSP FOOT W UNSP SEVERITY
[2017-03-26 19:24] LABS: CREATININE 2.2 mg/dL (0.7-1.3)
[2017-03-26] MEDS ORDERED: traZODone HCL 50 MG TABLET (FP) ONE (21:50)
[2017-03-26] MEDS ORDERED: DAPTOMYCIN 600 MG in SODIUM CHLORIDE 100 ML IVPB SCH (22:00)
[2017-03-26] MEDS: MIRTAZAPINE 30 MG TABLET (FP) PO SCH (22:03)
[2017-03-26] MEDS: traZODone HCL 100 MG TABLET (FP) PO SCH (22:04)
[2017-03-26] MEDS: COLLAGENASE CLOSTRIDIUM HIST. 30 GRAMS TUBE TP SCH (22:15)
[2017-03-27] MEDS ORDERED: DEXTROSE 5%-0.45% SALINE 1,000 ML IV SCH ×2 (06:45→21:04)
[2017-03-27] MEDS ORDERED: DEXTROSE 50%-WATER - 25 GM/50 ML VIAL ONE (06:50)
[2017-03-27] MEDS: INSULIN DETEMIR 100 UNITS/ML MDV SQ SCH ×2 (06:54→22:06)
[2017-03-27] MEDS: INSULIN SLIDING SCALE (NOVOLOG) 1 VIAL SQ SCH ×4 (06:54→22:22)
[2017-03-27] MEDS ORDERED: DEXTROSE 50%-WATER 25 GM/50 ML DISP.SYRIN IVPUSH ONE (07:00)
[2017-03-27] MEDS: SEVELAMER CARBONATE 800 MG TAB (FP) PO SCH ×2 (07:47→12:00)
[2017-03-27 08:27] LABS: BASOPHIL 0.3 % (0-2.0); EOSINOPHIL 2.2 % (0-4.5); MCH 26.9 pg (25.7-33.7); MCHC 31.9 g/dl (32.0-35.9); MEAN CELL VOLUME 84.5 fl (80-96); MEAN PLT VOLUME 7.7 fl (7.5-11.1); NEUTROPHILS 86.7 % (42.8-82.8); PLATELET COUNT 418 K/MM3 (134-434); RDW 17.4 % (11.9-15.9); WHITE BLOOD COUNT 15.4 K/mm3 (4.0-10.0)
[2017-03-27] MEDS ORDERED: PT OWN MED DRAWER 7, Y5N ONE (08:38)
[2017-03-27] MEDS: COLLAGENASE CLOSTRIDIUM HIST. 30 GRAMS TUBE TP SCH ×2 (08:41→10:00)
[2017-03-27] MEDS: DOXAZOSIN MESYLATE 4 MG TABLET PO SCH (09:24)
[2017-03-27] MEDS: HEPARIN NA (PORCINE) 5,000 UNITS/ML 1ML VIAL SQ SCH ×2 (09:24→22:06)
[2017-03-27] MEDS: METOPROLOL TARTRATE 50 MG TABLET (FP) PO SCH ×2 (09:24→22:07)
[2017-03-27] MEDS: amLODIPine BESYLATE 10 MG TABLET (FP) PO SCH (09:24)
[2017-03-27] MEDS: morphine SULFATE 4 MG/ML VIAL IVPUSH PRN (09:42)
[2017-03-27] MEDS: CEFEPIME 1 GM in DEXTROSE 5%-WATER - 100 ML IVPB SCH (09:47)
[2017-03-27] MEDS ORDERED: INSULIN (NOVOLOG) ASPART 100 UNITS/ML 10ML VIAL ONE ×2 (11:37→22:21)
[2017-03-27] MEDS ORDERED: ROPIVACAINE HCL 0.5% 30ML VIAL ONE (15:34)
[2017-03-27] MEDS ORDERED: DEXAMETHASONE SOD PHOSPHATE/PF 10 MG/ML SDV ONE (15:34)
[2017-03-27] MEDS ORDERED: BUPIVACAINE HCL/PF 0.5% (5MG/ML) 10 ML VIAL ONE (15:34)
[2017-03-27] MEDS ORDERED: PROPOFOL 20 ML ONE ×3 (15:50)
[2017-03-27] MEDS ORDERED: LIDOCAINE HCL/PF 2% SDV 5ML VIAL ONE (16:15)
[2017-03-27] MEDS ORDERED: MIDAZOLAM HCL 2 MG/2 ML SINGLE DOSE VIAL ONE (17:11)
--- NOTE | 2017-03-27 17:25 | PN ---
Progress Note, Physician History of Present Illness: for OR - Current Medication List Current Medications: Active Medications Albuterol Sulfate (Ventolin 0.083% Nebulizer Soln -) 1 amp NEB Q4H PRN PRN Reason: SHORT OF BREATH/WHEEZING Amlodipine Besylate (Norvasc -) 10 mg PO DAILY [facility] Last Admin: 03/27/17 09:24 Dose: 10 mg Collagenase (Santyl -) 1 applic TP DAILY [facility] Last Admin: 03/27/17 10:00 Dose: Not Given Doxazosin Mesylate (Cardura -) 4 mg PO DAILY [facility] Last Admin: 03/27/17 09:24 Dose: 4 mg Duloxetine HCl (Cymbalta -) 30 mg PO DAILY [facility] Last Admin: 03/26/17 18:35 Dose: 30 mg Fentanyl (Sublimaze Injection -) 50 mcg IVPUSH [id number] PRN PRN Reason: PAIN Folic Acid (Folic Acid -) 1 mg PO DAILY [facility] Last Admin: 03/26/17 18:35 Dose: 1 mg Heparin Sodium (Porcine) (Heparin -) 5,000 unit SQ BID [facility] Last Admin: 03/27/17 09:24 Dose: Not Given Cefepime HCl 1 gm/ Dextrose 100 mls @ 200 mls/hr IVPB DAILY [facility] Last Admin: 03/27/17 09:47 Dose: 200 mls/hr Daptomycin 600 mg/ Sodium (Chloride) 100 mls @ 200 mls/hr IVPB DAILY@2200 [facility] Last Admin: 03/26/17 22:03 Dose: 200 mls/hr Dextrose/Sodium Chloride (D5-1/2ns -) 1,000 mls @ 75 mls/hr IV ASDIR [facility] Last Admin: 03/27/17 06:56 Dose: 75 mls/hr Insulin Aspart (Novolog Vial Sliding Scale -) 1 vial SQ ACHS [facility] PRN Reason: Protocol Last Admin: 03/27/17 16:10 Dose: Not Given Insulin Detemir (Levemir Vial) 15 units SQ BID@0700,2200 [facility] Last Admin: 03/27/17 06:54 Dose: Not Given Metoprolol Tartrate (Lopressor -) 50 mg PO BID [facility] Last Admin: 03/27/17 09:24 Dose: 50 mg Mirtazapine (Remeron -) 30 mg PO HS [facility] Last Admin: 03/26/17 22:03 Dose: 30 mg Morphine Sulfate (Morphine Sulfate) 4 mg IVPUSH Q6H PRN PRN Reason: PAIN Last Admin: 03/27/17 09:42 Dose: 4 mg Oxycodone HCl (Roxicodone -) 10 mg PO Q4H PRN PRN Reason: PAIN 6-10 Last Admin: 03/26/17 06:40 Dose: 10 mg Sevelamer Carbonate (Renvela -) 800 mg PO TIDCM [facility] Last Admin: 03/27/17 12:00 Dose: Not Given Sodium Bicarbonate (Sodium Bicarbonate -) 1,300 mg PO BID [facility] Last Admin: 03/26/17 22:03 Dose: 1,300 mg Torsemide (Demadex -) 40 mg PO DAILY [facility] Last Admin: 03/26/17 19:27 Dose: Not Given Trazodone HCl (Desyrel -) 300 mg PO HS [facility] Last Admin: 03/26/17 22:04 Dose: 300 mg - Objective Vital Signs: Vital Signs Temperature 98.1 F 03/27/17 14:30 Pulse Rate 69 03/27/17 14:30 Respiratory Rate 18 03/27/17 14:30 Blood Pressure 137/73 03/27/17 14:30 O2 Sat by Pulse Oximetry (%) 95 03/27/17 09:00 Constitutional: Yes: No Distress HENT: Yes: Atraumatic Neck: Yes: Supple Cardiovascular: Yes: Regular Rate and Rhythm Respiratory: Yes: CTA Bilaterally Gastrointestinal: Yes: Normal Bowel Sounds Extremities: Yes: Other (llex in dressing r foot in dressing) Neurological: Yes: Alert, Oriented Labs: CBC, BMP 03/27/17 07:30 03/26/17 18:00 INR, PTT INR 1.14 (0.82-1.09) 03/18/17 17:50 Problem List - Problems (1) ARF (acute renal failure) Assessment/Plan: on hd dr mendoza Code(s): N17.9 - ACUTE KIDNEY FAILURE, UNSPECIFIED Qualifiers: Acute renal failure type: unspecified Qualified Code(s): N17.9 - Acute kidney failure, unspecified (2) Hyperkalemia Assessment/Plan: on hd..will improve Code(s): E87.5 - HYPERKALEMIA (3) Hyponatremia Assessment/Plan: monitor ..on hd Code(s): E87.1 - HYPO-OSMOLALITY AND HYPONATREMIA (4) Syncope Assessment/Plan: resolved Code(s): R55 - SYNCOPE AND COLLAPSE Qualifiers: Syncope type: unspecified Qualified Code(s): R55 - Syncope and collapse (5) 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 Assessment/Plan: bgms insulin Code(s): E11.9 - TYPE 2 DIABETES MELLITUS WITHOUT COMPLICATIONS Qualifiers: 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 type: type 2 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 complication status: without complication 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 fdc insulin use: without fdc use Qualified Code(s): E11.9 - Type 2 diabetes mellitus without complications (6) GERD (gastroesophageal reflux disease) Code(s): K21.9 - GASTRO-ESOPHAGEAL REFLUX DISEASE WITHOUT ESOPHAGITIS (7) HTN (hypertension) Code(s): I10 - ESSENTIAL (PRIMARY) HYPERTENSION Qualifiers: Hypertension type: essential hypertension Qualified Code(s): I10 - Essential (primary) hypertension (8) Type 2 diabetes mellitus with foot ulcer Code(s): E11.621 - TYPE 2 DIABETES MELLITUS WITH FOOT ULCER; L97.509 - NON- PRESSURE CHRONIC ULCER OTH PRT UNSP FOOT W UNSP SEVERITY
--- NOTE | 2017-03-27 17:30 | PN ---
Progress Note (short form) - Note Progress Note: ID f/u: Pt unavailable for examination. s/p Lt foot amputation MRI results noted, Rt foot I+D Switched antibiotics to Cefepime and Daptomycin yesterday - wbc decreased to 15K today, afebrile will f/u tomorrow Problem List - Problems (1) ARF (acute renal failure) Code(s): N17.9 - ACUTE KIDNEY FAILURE, UNSPECIFIED Qualifiers: Acute renal failure type: unspecified Qualified Code(s): N17.9 - Acute kidney failure, unspecified (2) Gangrene of left foot Code(s): I96 - GANGRENE, NOT ELSEWHERE CLASSIFIED (3) Syncope Code(s): R55 - SYNCOPE AND COLLAPSE Qualifiers: Syncope type: unspecified Qualified Code(s): R55 - Syncope and collapse (4) COPD with emphysema Code(s): J43.9 - EMPHYSEMA, UNSPECIFIED (5) Chronic renal insufficiency, stage IV (severe) Code(s): N18.4 - CHRONIC KIDNEY DISEASE, STAGE 4 (SEVERE) (6) Diabetic neuropathy Code(s): E11.40 - TYPE 2 DIABETES MELLITUS WITH DIABETIC NEUROPATHY, UNSP Qualifiers: 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 type: type 2 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 complication detail: diabetic polyneuropathy Qualified Code(s): E11.42 - Type 2 diabetes mellitus with diabetic polyneuropathy (7) Foot infection Code(s): L08.9 - LOCAL INFECTION OF THE SKIN AND SUBCUTANEOUS TISSUE, UNSP (8) Neuropathy Code(s): G62.9 - POLYNEUROPATHY, UNSPECIFIED (9) S/P amputation Code(s): Z89.9 - ACQUIRED ABSENCE OF LIMB, UNSPECIFIED (10) Type 2 diabetes mellitus with foot ulcer Code(s): E11.621 - TYPE 2 DIABETES MELLITUS WITH FOOT ULCER; L97.509 - NON- PRESSURE CHRONIC ULCER OTH PRT UNSP FOOT W UNSP SEVERITY
[2017-03-27] MEDS ORDERED: ceFAZolin SODIUM 1 GM VIAL IVPB ONE ×2 (18:07)
--- NOTE | 2017-03-27 20:45 | OP ---
Operative Note - Note: Operative Date: 03/27/17 Pre-Operative Diagnosis: left foot gangrene Operation: left below knee amputation Post-Operative Diagnosis: Same as Pre-op Surgeon: Al Daly Anesthesia: Fractional Estimated Blood Loss (mls): 150 Operative Report Dictated: Yes
[2017-03-27] MEDS ORDERED: ALBUTEROL SO4 0.083% IH SOL 2.5 MG/3 ML VIAL.NEB. NEB PRN (21:04)
[2017-03-27] MEDS ORDERED: morphine SULFATE 4 MG/ML VIAL IVPUSH PRN (21:04)
[2017-03-27] MEDS ORDERED: traZODone HCL 50 MG TABLET (FP) ONE (21:59)
[2017-03-27] MEDS: MIRTAZAPINE 30 MG TABLET (FP) PO SCH (22:07)
[2017-03-27] MEDS: traZODone HCL 100 MG TABLET (FP) PO SCH (22:07)
[2017-03-27] MEDS: SODIUM BICARBONATE 650 MG TABLET PO SCH (22:07)
[2017-03-28] MEDS: oxyCODONE HCL 5 MG TABLET PO PRN ×3 (02:09→11:55)
[2017-03-28] MEDS ORDERED: INSULIN (NOVOLOG) ASPART 100 UNITS/ML 10ML VIAL ONE (05:56)
[2017-03-28] MEDS: INSULIN DETEMIR 100 UNITS/ML MDV SQ SCH ×2 (06:05→22:22)
[2017-03-28] MEDS: INSULIN SLIDING SCALE (NOVOLOG) 1 VIAL SQ SCH ×4 (06:06→22:23)
--- NOTE | 2017-03-28 08:29 | PN ---
Progress Note (short form) - Note Progress Note: POD #1 - s/p left below knee amputation under general anesthesia with adductor canal and popliteal blocks. VSS. Pt c/o pain - po oxycodone and iv morphine already ordered. No apparent anesthetic complications noted. Continue current care.
[2017-03-28] MEDS: SEVELAMER CARBONATE 800 MG TAB (FP) PO SCH ×3 (08:31→17:12)
[2017-03-28] MEDS ORDERED: PT OWN MED DRAWER 7, Y5N ONE ×2 (10:09→22:27)
[2017-03-28] MEDS: CEFEPIME 1 GM in DEXTROSE 5%-WATER - 100 ML IVPB SCH (10:11)
[2017-03-28] MEDS: HEPARIN NA (PORCINE) 5,000 UNITS/ML 1ML VIAL SQ SCH ×2 (10:13→22:21)
[2017-03-28] MEDS: SODIUM BICARBONATE 650 MG TABLET PO SCH ×2 (10:13→22:21)
[2017-03-28] MEDS: METOPROLOL TARTRATE 50 MG TABLET (FP) PO SCH ×2 (10:14→22:21)
[2017-03-28] MEDS: TORSEMIDE 20 MG TABLET (FP) PO SCH (10:14)
[2017-03-28] MEDS: FOLIC ACID 1 MG TABLET (FP) PO SCH (10:14)
[2017-03-28] MEDS: DULoxetine HCL 30 MG CAPSULE.DR (FP) PO SCH (10:17)
[2017-03-28] MEDS: amLODIPine BESYLATE 10 MG TABLET (FP) PO SCH (10:18)
[2017-03-28] MEDS: DOXAZOSIN MESYLATE 4 MG TABLET PO SCH (10:18)
[2017-03-28] MEDS ORDERED: EPOETIN ALFA 10,000 UNIT/1 ML VIAL IVPUSH ONE (10:19)
[2017-03-28] MEDS: COLLAGENASE CLOSTRIDIUM HIST. 30 GRAMS TUBE TP SCH (10:23)
--- NOTE | 2017-03-28 10:54 | PN ---
Progress Note (short form) - Note Progress Note: POD#1 Pt with complaints of pain. Vital Signs Period Temp Pulse Resp BP Sys/Gutierrez Pulse Ox Last 24 Hr 97.9 F-98.3 F 68-85 10-20 102-137/59-76 93-100 GEN: resting comfortably Left leg: with knee immobilizer in place. dressing c/d/i with coban. Applied additional gauze over knee. A/P: 61 yo male s/p Left BKA for gangrene Cont pain management, changed to iv dilaudid and discontinued morphine IV. May also take oral oxycodone. Continue knee immobilier. Will change dressing in 1 to 2 days.
[2017-03-28] MEDS ORDERED: HYDROmorphone HCL CARPU-JECT 1 MG/1 ML DISP.SYRIN IVPB PRN (11:00)
[2017-03-28 11:31] LABS: MCH 27.5 pg (25.7-33.7); MEAN CELL VOLUME 85.9 fl (80-96); MEAN PLT VOLUME 7.7 fl (7.5-11.1); PLATELET COUNT 410 K/MM3 (134-434); RDW 17.8 % (11.9-15.9); WHITE BLOOD COUNT 16.2 K/mm3 (4.0-10.0)
--- NOTE | 2017-03-28 11:32 | OP ---
DATE OF OPERATION: 03/27/2017 PREOPERATIVE DIAGNOSIS: Left foot gangrene. POSTOPERATIVE DIAGNOSIS: Left foot gangrene. PROCEDURE: Left below-knee amputation. SURGEON: Al Castillo DO ANESTHESIA: General with nerve block. BLOOD LOSS: 150 mL. HISTORY: The patient is a 61-year-old male who came in last week with gangrene and abscess going up his left leg. He had a guillotine amputation performed last Saturday, and he then received antibiotics and antibiotic course over the last 5 days. Now he needs a formal BKA for closure. The patient was consented for the procedure understanding all risks, benefits, and alternatives and taken to the operating room. Prior to going to the operating room, Anesthesia did a femoral nerve block on the patient. DESCRIPTION OF PROCEDURE: The patient was then brought into the operating room, laid on the operating room table in supine manner. The patient was then administered general anesthesia as well. The area of the left lower extremity was then prepped and draped in a sterile surgical manner. We then went 4 fingerbreadths below the left tibial tuberosity and alma rosa a step off incision with a skin marker. We then went ahead and used a No. 15 blade. We went ahead and cut along our incision. Bovie electrocautery was used to control hemostasis. We were able to take down all of the muscular attachments at the lateral compartment using Bovie electrocautery and get down to the posterior tibial artery. The posterior tibial artery and vein were dissected, and they were clamped and suture ligated using 0 silk. We then went medially and took down the muscular attachments using Bovie electrocautery and got down to the anterior tibial artery. The anterior tibial artery and vein were dissected and then clamped and suture ligated using 0 silk. We then dissected out our tibia using Bovie electrocautery and then we were able to then take all of the muscular attachments off of the fibula as well. We then went ahead and were able to go posteriorly and take down the posterior attachments including the attachments of the gastrocnemius muscle. Once the leg was freed up, we then went ahead and went between the tibia and the fibula, and we were able to dissect out the peritoneal artery and vein, and the peritoneal artery and vein were dissected and clamped and suture ligated using 0 silk. We then went ahead and used a bone saw and transected the tibia first and then went 2 cm above that on the fibula and transected the fibula. Once that was completed, the leg was then sent down to Pathology. Bovie electrocautery was used to control all hemostasis. The rest of the leg was then well irrigated. The flap was well approximating for closure. We then used 2-0 Vicryl, and we were able to approximate the fascia in an interrupted manner, and the skin was closed with skin saravanan. The area was wet and dried. Xeroform, 4 x 4s, ABD pads, Kerlix, and Coban were placed. The patient's left leg was placed in a knee immobilizer. The patient tolerated the procedure with no complications. The patient was transferred to PACU in stable condition. AL CASTILLO DO [id number]
[2017-03-28 11:56] LABS: ALBUMIN 1.4 g/dl (3.4-5.0); ANION GAP 5 (8-16); CALCIUM 7.1 mg/dL (8.5-10.1); CO2 30 mmol/L (21-32); MAGNESIUM 1.9 mg/dL (1.8-2.4); PHOSPHOROUS 5.3 mg/dL (2.5-4.9); SGOT/AST 13 U/L (15-37); SGPT/ALT 17 U/L (12-78)
[2017-03-28 11:59] LABS: ALK PHOS 114 U/L (45-117); BILIRUBIN,TOTAL 0.3 mg/dL (0.2-1.0)
[2017-03-28 12:10] LABS: GLUCOSE,RANDOM 307 mg/dL (74-106)
--- NOTE | 2017-03-28 14:11 | PN ---
Progress Note, Physician Chief Complaint: Infectious Disease note: History of Present Illness: Events noted. Pt s/p Lt BKA. Currently alert and afebrile. No new complaints. Did not wish to have HD today - Current Medication List Current Medications: Active Medications Albuterol Sulfate (Ventolin 0.083% Nebulizer Soln -) 1 amp NEB Q4H PRN PRN Reason: SHORT OF BREATH/WHEEZING Amlodipine Besylate (Norvasc -) 10 mg PO DAILY [facility] Last Admin: 03/28/17 10:18 Dose: 10 mg Collagenase (Santyl -) 1 applic TP DAILY [facility] Last Admin: 03/28/17 10:23 Dose: 1 applic Doxazosin Mesylate (Cardura -) 4 mg PO DAILY [facility] Last Admin: 03/28/17 10:18 Dose: 4 mg Duloxetine HCl (Cymbalta -) 30 mg PO DAILY [facility] Last Admin: 03/28/17 10:17 Dose: 30 mg Epoetin Joe (Procrit -) 10,000 unit IVPUSH ONCE ONE Stop: 03/28/17 10:20 Folic Acid (Folic Acid -) 1 mg PO DAILY [facility] Last Admin: 03/28/17 10:14 Dose: 1 mg Heparin Sodium (Porcine) (Heparin -) 5,000 unit SQ BID [facility] Last Admin: 03/28/17 10:13 Dose: 5,000 unit Hydromorphone HCl (Dilaudid Injection -) 1 mg IVPB Q4H PRN PRN Reason: PAIN Cefepime HCl 1 gm/ Dextrose 100 mls @ 200 mls/hr IVPB DAILY [facility] Last Admin: 03/28/17 10:11 Dose: 200 mls/hr Daptomycin 600 mg/ Sodium (Chloride) 100 mls @ 200 mls/hr IVPB Q48H [facility] Insulin Aspart (Novolog Vial Sliding Scale -) 1 vial SQ ACHS [facility] PRN Reason: Protocol Last Admin: 03/28/17 12:01 Dose: 2 units Insulin Detemir (Levemir Vial) 15 units SQ BID@0700,2200 [facility] Last Admin: 03/28/17 06:05 Dose: 15 units Metoprolol Tartrate (Lopressor -) 50 mg PO BID [facility] Last Admin: 03/28/17 10:14 Dose: 50 mg Mirtazapine (Remeron -) 30 mg PO HS [facility] Last Admin: 03/27/17 22:07 Dose: 30 mg Oxycodone HCl (Roxicodone -) 10 mg PO Q4H PRN PRN Reason: PAIN 6-10 Last Admin: 03/28/17 11:55 Dose: 10 mg Sevelamer Carbonate (Renvela -) 800 mg PO TIDCM [facility] Last Admin: 03/28/17 11:55 Dose: 800 mg Sodium Bicarbonate (Sodium Bicarbonate -) 1,300 mg PO BID [facility] Last Admin: 03/28/17 10:13 Dose: 1,300 mg Torsemide (Demadex -) 40 mg PO DAILY [facility] Last Admin: 03/28/17 10:14 Dose: 40 mg Trazodone HCl (Desyrel -) 300 mg PO [facility] Last Admin: 03/27/17 22:07 Dose: 300 mg - Objective Vital Signs: Vital Signs Temperature 98.1 F 03/28/17 13:56 Pulse Rate 72 03/28/17 13:56 Respiratory Rate 18 03/28/17 13:56 Blood Pressure 133/69 03/28/17 13:56 O2 Sat by Pulse Oximetry (%) 95 03/28/17 09:00 Constitutional: Yes: No Distress Cardiovascular: Yes: Regular Rate and Rhythm Respiratory: Yes: CTA Bilaterally Gastrointestinal: Yes: Normal Bowel Sounds, Soft Extremities: Yes: Amputation (Lt BKA , Rt foot plantar ulcer with mild purulence. amputated Rt 1st toe), Other Wound/Incision: Yes: Dressing Dry and Intact (Lt BKA) Neurological: Yes: Alert Psychiatric: Yes: Alert Labs: CBC, BMP 03/28/17 11:20 03/28/17 11:20 INR, PTT INR 1.14 (0.82-1.09) 03/18/17 17:50 - ....Imaging MRI: Report Reviewed (Rt LE : Rt foot soft tissue edema, open wound. Bone marrow edema of 5th MT likely due to OM, possible OM of 3rd/4th toe) Problem List - Problems (1) ARF (acute renal failure) Code(s): N17.9 - ACUTE KIDNEY FAILURE, UNSPECIFIED Qualifiers: Acute renal failure type: unspecified Qualified Code(s): N17.9 - Acute kidney failure, unspecified (2) Gangrene of left foot Code(s): I96 - GANGRENE, NOT ELSEWHERE CLASSIFIED (3) Syncope Code(s): R55 - SYNCOPE AND COLLAPSE Qualifiers: Syncope type: unspecified Qualified Code(s): R55 - Syncope and collapse (4) COPD with emphysema Code(s): J43.9 - EMPHYSEMA, UNSPECIFIED (5) Chronic renal insufficiency, stage IV (severe) Code(s): N18.4 - CHRONIC KIDNEY DISEASE, STAGE 4 (SEVERE) (6) Diabetic neuropathy Code(s): E11.40 - TYPE 2 DIABETES MELLITUS WITH DIABETIC NEUROPATHY, UNSP Qualifiers: 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 type: type 2 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 complication detail: diabetic polyneuropathy Qualified Code(s): E11.42 - Type 2 diabetes mellitus with diabetic polyneuropathy (7) Foot infection Code(s): L08.9 - LOCAL INFECTION OF THE SKIN AND SUBCUTANEOUS TISSUE, UNSP (8) Neuropathy Code(s): G62.9 - POLYNEUROPATHY, UNSPECIFIED (9) S/P amputation Code(s): Z89.9 - ACQUIRED ABSENCE OF LIMB, UNSPECIFIED (10) Type 2 diabetes mellitus with foot ulcer Code(s): E11.621 - TYPE 2 DIABETES MELLITUS WITH FOOT ULCER; L97.509 - NON- PRESSURE CHRONIC ULCER OTH PRT UNSP FOOT W UNSP SEVERITY Assessment/Plan s/p Lt BKA for gangrene s/p Rt foot surgical debridement Likely Rt foot 5th MT (and possible 3/4th toe OM) Persistent Leukocytosis ESRD on HD - cont current antibiotics for now, wound care - consider Rt foot bone bx/ culture - f/u by Dr Galvan - cont monitor wbc vitals remain stable
[2017-03-28] MEDS: HYDROmorphone HCL CARPU-JECT 2 MG/1 ML DISP.SYRIN IVPB PRN ×2 (14:41→22:32)
--- NOTE | 2017-03-28 15:24 | PN ---
Progress Note (short form) - Note Progress Note: Renal Follow up for FROYLAN on CKD Pt seen and examined at the bedside no acute complaints pts feels very fatigued did not sleep well b/c of pain no sob, chest pain does not wish to have dialysis today Vital Signs Temperature 98.1 F 03/28/17 13:56 Pulse Rate 72 03/28/17 13:56 Respiratory Rate 18 03/28/17 13:56 Blood Pressure 133/69 03/28/17 13:56 O2 Sat by Pulse Oximetry (%) 95 03/28/17 09:00 Intake & Output 03/25/17 03/26/17 03/27/17 03/28/17 23:59 23:59 23:59 23:59 Intake Total 8261 823 3135 675 Output Total 500 550 750 400 Balance 6219 820 9620 275 Weight 100.045 kg 100.839 kg 98.43 kg 98.685 kg NAD awake and alert RRR Dec Bs at lung bases, no rales soft NT/ND Trace to 1+ Le edema CBC, BMP 03/28/17 11:20 03/28/17 11:20 Laboratory Tests 03/28/17 11:20 Calcium 7.1 L Phosphorus 5.3 H Magnesium 1.9 Albumin 1.4 L Current Medications Albuterol Sulfate (Ventolin 0.083% Nebulizer Soln -) 1 amp NEB Q4H PRN PRN Reason: SHORT OF BREATH/WHEEZING Amlodipine Besylate (Norvasc -) 10 mg PO DAILY [facility] Last Admin: 03/28/17 10:18 Dose: 10 mg Collagenase (Santyl -) 1 applic TP DAILY [facility] Last Admin: 03/28/17 10:23 Dose: 1 applic Doxazosin Mesylate (Cardura -) 4 mg PO DAILY [facility] Last Admin: 03/28/17 10:18 Dose: 4 mg Duloxetine HCl (Cymbalta -) 30 mg PO DAILY [facility] Last Admin: 03/28/17 10:17 Dose: 30 mg Epoetin Joe (Procrit -) 10,000 unit IVPUSH ONCE ONE Stop: 03/28/17 10:20 Folic Acid (Folic Acid -) 1 mg PO DAILY [facility] Last Admin: 03/28/17 10:14 Dose: 1 mg Heparin Sodium (Porcine) (Heparin -) 5,000 unit SQ BID [facility] Last Admin: 03/28/17 10:13 Dose: 5,000 unit Hydromorphone HCl (Dilaudid Injection -) 1 mg IVPB Q4H PRN PRN Reason: PAIN Last Admin: 03/28/17 14:41 Dose: 1 mg Cefepime HCl 1 gm/ Dextrose 100 mls @ 200 mls/hr IVPB DAILY [facility] Last Admin: 03/28/17 10:11 Dose: 200 mls/hr Daptomycin 600 mg/ Sodium (Chloride) 100 mls @ 200 mls/hr IVPB Q48H [facility] Insulin Aspart (Novolog Vial Sliding Scale -) 1 vial SQ ACHS [facility] PRN Reason: Protocol Last Admin: 03/28/17 12:01 Dose: 2 units Insulin Detemir (Levemir Vial) 15 units SQ BID@0700,2200 [facility] Last Admin: 03/28/17 06:05 Dose: 15 units Metoprolol Tartrate (Lopressor -) 50 mg PO BID [facility] Last Admin: 03/28/17 10:14 Dose: 50 mg Mirtazapine (Remeron -) 30 mg PO HS [facility] Last Admin: 03/27/17 22:07 Dose: 30 mg Oxycodone HCl (Roxicodone -) 10 mg PO Q4H PRN PRN Reason: PAIN 6-10 Last Admin: 03/28/17 11:55 Dose: 10 mg Sevelamer Carbonate (Renvela -) 800 mg PO TIDCM [facility] Last Admin: 03/28/17 11:55 Dose: 800 mg Sodium Bicarbonate (Sodium Bicarbonate -) 1,300 mg PO BID [facility] Last Admin: 03/28/17 10:13 Dose: 1,300 mg Torsemide (Demadex -) 40 mg PO DAILY [facility] Last Admin: 03/28/17 10:14 Dose: 40 mg Trazodone HCl (Desyrel -) 300 mg PO HS [facility] Last Admin: 03/27/17 22:07 Dose: 300 mg 61 year old gentleman with PMhx of CKD stage 4 (baseline Cr 2.8), Hypertension , DM, PVD, Depression who presented with syncope and found to have acute on chronic renal failure with hyperkalemia and hyponatremia. 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 [employer]TER today (no acidosis, hyperkalemia, volume overload) #Leukocytosis/Sepsis/infected LE wound continue Abx as per ID s/p left foot amputation pain control #Acute on Chronic anemia s/p PRBC transfusions will give ADRIAN with HD Miguel Jansen DO Problem List - Problems (1) Hyponatremia Code(s): E87.1 - HYPO-OSMOLALITY AND HYPONATREMIA (2) ARF (acute renal failure) Code(s): N17.9 - ACUTE KIDNEY FAILURE, UNSPECIFIED Qualifiers: Acute renal failure type: unspecified Qualified Code(s): N17.9 - Acute kidney failure, unspecified (3) Hyperkalemia Code(s): E87.5 - HYPERKALEMIA (4) Syncope Code(s): R55 - SYNCOPE AND COLLAPSE Qualifiers: Syncope type: unspecified Qualified Code(s): R55 - Syncope and collapse (5) FROYLAN (acute kidney injury) Code(s): N17.9 - ACUTE KIDNEY FAILURE, UNSPECIFIED
--- NOTE | 2017-03-28 16:17 | PN ---
Progress Note, Physician - Current Medication List Current Medications: Active Medications Albuterol Sulfate (Ventolin 0.083% Nebulizer Soln -) 1 amp NEB Q4H PRN PRN Reason: SHORT OF BREATH/WHEEZING Amlodipine Besylate (Norvasc -) 10 mg PO DAILY [facility] Last Admin: 03/28/17 10:18 Dose: 10 mg Collagenase (Santyl -) 1 applic TP DAILY [facility] Last Admin: 03/28/17 10:23 Dose: 1 applic Doxazosin Mesylate (Cardura -) 4 mg PO DAILY [facility] Last Admin: 03/28/17 10:18 Dose: 4 mg Duloxetine HCl (Cymbalta -) 30 mg PO DAILY [facility] Last Admin: 03/28/17 10:17 Dose: 30 mg Epoetin Joe (Procrit -) 10,000 unit IVPUSH ONCE ONE Stop: 03/29/17 06:01 Folic Acid (Folic Acid -) 1 mg PO DAILY [facility] Last Admin: 03/28/17 10:14 Dose: 1 mg Heparin Sodium (Porcine) (Heparin -) 5,000 unit SQ BID [facility] Last Admin: 03/28/17 10:13 Dose: 5,000 unit Hydromorphone HCl (Dilaudid Injection -) 1 mg IVPB Q4H PRN PRN Reason: PAIN Last Admin: 03/28/17 14:41 Dose: 1 mg Cefepime HCl 1 gm/ Dextrose 100 mls @ 200 mls/hr IVPB DAILY [facility] Last Admin: 03/28/17 10:11 Dose: 200 mls/hr Daptomycin 600 mg/ Sodium (Chloride) 100 mls @ 200 mls/hr IVPB Q48H [facility] Insulin Aspart (Novolog Vial Sliding Scale -) 1 vial SQ ACHS [facility] PRN Reason: Protocol Last Admin: 03/28/17 12:01 Dose: 2 units Insulin Detemir (Levemir Vial) 15 units SQ BID@0700,2200 [facility] Last Admin: 03/28/17 06:05 Dose: 15 units Metoprolol Tartrate (Lopressor -) 50 mg PO BID [facility] Last Admin: 03/28/17 10:14 Dose: 50 mg Mirtazapine (Remeron -) 30 mg PO HS [facility] Last Admin: 03/27/17 22:07 Dose: 30 mg Oxycodone HCl (Roxicodone -) 10 mg PO Q4H PRN PRN Reason: PAIN 6-10 Last Admin: 03/28/17 11:55 Dose: 10 mg Sevelamer Carbonate (Renvela -) 800 mg PO TIDCM [facility] Last Admin: 03/28/17 11:55 Dose: 800 mg Sodium Bicarbonate (Sodium Bicarbonate -) 1,300 mg PO BID [facility] Last Admin: 03/28/17 10:13 Dose: 1,300 mg Torsemide (Demadex -) 40 mg PO DAILY [facility] Last Admin: 03/28/17 10:14 Dose: 40 mg Trazodone HCl (Desyrel -) 300 mg PO HS [facility] Last Admin: 03/27/17 22:07 Dose: 300 mg - Objective Vital Signs: Vital Signs Temperature 98.1 F 03/28/17 13:56 Pulse Rate 72 03/28/17 13:56 Respiratory Rate 18 03/28/17 13:56 Blood Pressure 133/69 03/28/17 13:56 O2 Sat by Pulse Oximetry (%) 95 03/28/17 09:00 Constitutional: Yes: No Distress HENT: Yes: Atraumatic Neck: Yes: Supple Cardiovascular: Yes: Regular Rate and Rhythm Respiratory: Yes: CTA Bilaterally Gastrointestinal: Yes: Normal Bowel Sounds Extremities: Yes: Other (left llex BKa) Neurological: Yes: Alert, Oriented Labs: CBC, BMP 03/28/17 11:20 03/28/17 11:20 INR, PTT INR 1.14 (0.82-1.09) 03/18/17 17:50 Problem List - Problems (1) ARF (acute renal failure) Assessment/Plan: on hd dr mendoza Code(s): N17.9 - ACUTE KIDNEY FAILURE, UNSPECIFIED Qualifiers: Acute renal failure type: unspecified Qualified Code(s): N17.9 - Acute kidney failure, unspecified (2) Hyperkalemia Assessment/Plan: on hd..will improve Code(s): E87.5 - HYPERKALEMIA (3) Hyponatremia Assessment/Plan: monitor ..on hd Code(s): E87.1 - HYPO-OSMOLALITY AND HYPONATREMIA (4) Syncope Assessment/Plan: resolved Code(s): R55 - SYNCOPE AND COLLAPSE Qualifiers: Syncope type: unspecified Qualified Code(s): R55 - Syncope and collapse (5) 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 Code(s): E11.9 - TYPE 2 DIABETES MELLITUS WITHOUT COMPLICATIONS Qualifiers: 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 type: type 2 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 complication status: without complication 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
--- NOTE | 2017-03-28 16:41 | PN ---
Progress Note (short form) - Note Progress Note: Concern for the possible positive MRI findings of osteomyelitis of the fifth ray of the right foot. considering the multiple procedures the patient has undergone (incision and drainage by this examiner, more proximal excision and drainage by Dr. Daly, trans tibial resection by Dr. Daly, and now permanent hemodialysis) wanted to give patient a little bit of a "break". Spoke to Dr Boyce who declares that patient will be in house over the weekend and probably will not be discharged until early to mid next week. Will therefore perform the bone biopsy Saturday on the right foot.
[2017-03-28] MEDS ORDERED: DAPTOMYCIN 600 MG in SODIUM CHLORIDE 100 ML IVPB SCH (22:00)
[2017-03-28] MEDS ORDERED: traZODone HCL 50 MG TABLET (FP) ONE (22:16)
[2017-03-28] MEDS: traZODone HCL 100 MG TABLET (FP) PO SCH (22:21)
[2017-03-28] MEDS: MIRTAZAPINE 30 MG TABLET (FP) PO SCH (22:21)
[2017-03-29] MEDS: INSULIN DETEMIR 100 UNITS/ML MDV SQ SCH ×2 (06:11→22:39)
[2017-03-29] MEDS: INSULIN SLIDING SCALE (NOVOLOG) 1 VIAL SQ SCH ×4 (06:11→22:39)
[2017-03-29] MEDS: SEVELAMER CARBONATE 800 MG TAB (FP) PO SCH ×3 (08:00→17:03)
[2017-03-29 08:22] LABS: BASOPHIL 0.6 % (0-2.0); EOSINOPHIL 2.9 % (0-4.5); MCH 27.7 pg (25.7-33.7); MCHC 32.3 g/dl (32.0-35.9); MEAN CELL VOLUME 85.8 fl (80-96); MEAN PLT VOLUME 7.8 fl (7.5-11.1); NEUTROPHILS 80.1 % (42.8-82.8); PLATELET COUNT 442 K/MM3 (134-434); RDW 17.6 % (11.9-15.9); WHITE BLOOD COUNT 15.3 K/mm3 (4.0-10.0)
[2017-03-29 08:33] LABS: MAGNESIUM 1.9 mg/dL (1.8-2.4); PHOSPHOROUS 5.4 mg/dL (2.5-4.9)
[2017-03-29] MEDS ORDERED: EPOETIN ALFA 10,000 UNIT/1 ML VIAL IVPUSH ONE (09:00)
[2017-03-29] MEDS: TORSEMIDE 20 MG TABLET (FP) PO SCH (10:00)
[2017-03-29] MEDS ORDERED: PT OWN MED DRAWER 7, Y5N ONE ×2 (10:02→12:43)
--- NOTE | 2017-03-29 12:29 | PN ---
Progress Note, Physician Chief Complaint: The patient seen on dialysis. Comfortable. Offers no new complaints. But tired, and more sleepy. Has profound anemia, and is receiving PRBC transfusion on dialysis. History of Present Illness: This is a 61 year old gentleman with PMhx of CKD stage 4 (baseline Cr 2.8), Hypertension, DM, PVD, Depression who presented with syncope and found to have acute on chronic renal failure with hyperkalemia and hyponatremia. The patient has ESRD now. - Current Medication List Current Medications: Active Medications Albuterol Sulfate (Ventolin 0.083% Nebulizer Soln -) 1 amp NEB Q4H PRN PRN Reason: SHORT OF BREATH/WHEEZING Amlodipine Besylate (Norvasc -) 10 mg PO DAILY [facility] Last Admin: 03/28/17 10:18 Dose: 10 mg Collagenase (Santyl -) 1 applic TP DAILY [facility] Last Admin: 03/28/17 10:23 Dose: 1 applic Doxazosin Mesylate (Cardura -) 4 mg PO DAILY [facility] Last Admin: 03/28/17 10:18 Dose: 4 mg Duloxetine HCl (Cymbalta -) 30 mg PO DAILY [facility] Last Admin: 03/28/17 10:17 Dose: 30 mg Folic Acid (Folic Acid -) 1 mg PO DAILY [facility] Last Admin: 03/28/17 10:14 Dose: 1 mg Heparin Sodium (Porcine) (Heparin -) 5,000 unit SQ BID [facility] Last Admin: 03/28/17 22:21 Dose: 5,000 unit Hydromorphone HCl (Dilaudid Injection -) 1 mg IVPB Q4H PRN PRN Reason: PAIN Last Admin: 03/28/17 22:32 Dose: 1 mg Cefepime HCl 1 gm/ Dextrose 100 mls @ 200 mls/hr IVPB DAILY [facility] Last Admin: 03/28/17 10:11 Dose: 200 mls/hr Daptomycin 600 mg/ Sodium (Chloride) 100 mls @ 200 mls/hr IVPB Q48H [facility] Last Admin: 03/28/17 23:13 Dose: 200 mls/hr Insulin Aspart (Novolog Vial Sliding Scale -) 1 vial SQ ACHS [facility] PRN Reason: Protocol Last Admin: 03/29/17 06:11 Dose: 2 units Insulin Detemir (Levemir Vial) 15 units SQ BID@0700,2200 [facility] Last Admin: 03/29/17 06:11 Dose: 15 units Metoprolol Tartrate (Lopressor -) 50 mg PO BID [facility] Last Admin: 03/28/17 22:21 Dose: 50 mg Mirtazapine (Remeron -) 30 mg PO HS [facility] Last Admin: 03/28/17 22:21 Dose: 30 mg Oxycodone HCl (Roxicodone -) 10 mg PO Q4H PRN PRN Reason: PAIN 6-10 Last Admin: 03/28/17 11:55 Dose: 10 mg Sevelamer Carbonate (Renvela -) 800 mg PO TIDCM [facility] Last Admin: 03/28/17 17:12 Dose: 800 mg Sodium Bicarbonate (Sodium Bicarbonate -) 1,300 mg PO BID [facility] Last Admin: 03/28/17 22:21 Dose: 1,300 mg Torsemide (Demadex -) 40 mg PO DAILY [facility] Last Admin: 03/28/17 10:14 Dose: 40 mg Trazodone HCl (Desyrel -) 300 mg PO [facility] Last Admin: 03/28/17 22:21 Dose: 300 mg - Objective Vital Signs: Vital Signs Temperature 98.1 F 03/29/17 08:20 Pulse Rate 68 03/29/17 12:00 Respiratory Rate 18 03/29/17 12:00 Blood Pressure 147/73 03/29/17 12:00 O2 Sat by Pulse Oximetry (%) 97 03/29/17 09:00 Constitutional: Yes: No Distress, Anxious Eyes: Yes: Conjunctiva Clear HENT: Yes: Normocephalic Neck: Yes: Trachea Midline Cardiovascular: Yes: Regular Rate and Rhythm, S1, S2 Respiratory: Yes: CTA Bilaterally, Diminished Gastrointestinal: Yes: Normal Bowel Sounds Extremities: Yes: Amputation Neurological: Yes: Alert, Oriented Labs: CBC, BMP 03/29/17 06:00 03/28/17 11:20 INR, PTT INR 1.14 (0.82-1.09) 03/18/17 17:50 Problem List - Problems (1) ARF (acute renal failure) Code(s): N17.9 - ACUTE KIDNEY FAILURE, UNSPECIFIED Qualifiers: Acute renal failure type: unspecified Qualified Code(s): N17.9 - Acute kidney failure, unspecified (2) Gangrene of left foot Code(s): I96 - GANGRENE, NOT ELSEWHERE CLASSIFIED (3) Anemia Code(s): D64.9 - ANEMIA, UNSPECIFIED Qualifiers: Anemia type: due to chronic kidney disease (4) Chronic renal insufficiency, stage IV (severe) Code(s): N18.4 - CHRONIC KIDNEY DISEASE, STAGE 4 (SEVERE) (5) 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 Code(s): E11.9 - TYPE 2 DIABETES MELLITUS WITHOUT COMPLICATIONS Qualifiers: 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 type: type 2 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 complication status: without complication 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 insulin use: without penitentiary use Qualified Code(s): E11.9 - Type 2 diabetes mellitus without complications (6) GERD (gastroesophageal reflux disease) Code(s): K21.9 - GASTRO-ESOPHAGEAL REFLUX DISEASE WITHOUT ESOPHAGITIS (7) HTN (hypertension) Code(s): I10 - ESSENTIAL (PRIMARY) HYPERTENSION Qualifiers: Hypertension type: essential hypertension Qualified Code(s): I10 - Essential (primary) hypertension (8) Type 2 diabetes mellitus with foot ulcer Code(s): E11.621 - TYPE 2 DIABETES MELLITUS WITH FOOT ULCER; L97.509 - NON- PRESSURE CHRONIC ULCER OTH PRT UNSP FOOT W UNSP SEVERITY Assessment/Plan 61 year old gentleman with PMhx of CKD stage 4 (baseline Cr 2.8), Hypertension, DM, PVD, Depression who presented with syncope and found to have acute on chronic renal failure with hyperkalemia and hyponatremia. The patient has now ESRD, and dialysis-dependent. PRBC transfusion in progress for profound anemia. IV Abs as ordered. Will continue Inpatient HD as needed, and when discharged, will require placement in an outpatient HD facility. Orders for HD reviewed with the RN. Aniyah Chaudhry MD
[2017-03-29] MEDS: SODIUM BICARBONATE 650 MG TABLET PO SCH ×2 (12:55→22:39)
[2017-03-29] MEDS: FOLIC ACID 1 MG TABLET (FP) PO SCH (12:56)
[2017-03-29] MEDS: METOPROLOL TARTRATE 50 MG TABLET (FP) PO SCH ×2 (12:56→22:40)
[2017-03-29] MEDS: DULoxetine HCL 30 MG CAPSULE.DR (FP) PO SCH (12:57)
[2017-03-29] MEDS: amLODIPine BESYLATE 10 MG TABLET (FP) PO SCH (12:57)
[2017-03-29] MEDS: DOXAZOSIN MESYLATE 4 MG TABLET PO SCH (12:58)
[2017-03-29] MEDS: CEFEPIME 1 GM in DEXTROSE 5%-WATER - 100 ML IVPB SCH (12:58)
[2017-03-29] MEDS: HEPARIN NA (PORCINE) 5,000 UNITS/ML 1ML VIAL SQ SCH ×2 (12:59→22:39)
[2017-03-29] MEDS: HYDROmorphone HCL CARPU-JECT 2 MG/1 ML DISP.SYRIN IVPB PRN (13:15)
--- NOTE | 2017-03-29 13:46 | PN ---
Progress Note (short form) - Note Progress Note: POD#2 Pt receiving IV dilaudid for pain currently. Vital Signs Period Temp Pulse Resp BP Sys/Gutierrez Pulse Ox Last 24 Hr 98.1 F-98.5 F 64-79 18-20 125-156/65-80 95-97 GEN: A&0x3 Left leg: dressing changed today. Inc c/d/i with saravanan, no drainage or erythema. No swelling. Small superficial wound inferior to patella. 1x1 cm. reapplied xerform to skin abrasion/staple line with gauze,kerlix and leona wrap. Knee immoblizer secured. CBC, BMP 12//17 06:00 A/p: POD#2 s/p Left BKA, healing well 1 unit PRBC transfused today in HD cont local wound care/knee immobilizer IV dilaudid/oral pain meds for pain
--- NOTE | 2017-03-29 15:00 | PN ---
Progress Note, Physician History of Present Illness: No new events noted. Pt denies pain at this time. Remains afebrile. No specific complaints. - Current Medication List Current Medications: Active Medications Albuterol Sulfate (Ventolin 0.083% Nebulizer Soln -) 1 amp NEB Q4H PRN PRN Reason: SHORT OF BREATH/WHEEZING Amlodipine Besylate (Norvasc -) 10 mg PO DAILY [facility] Last Admin: 03/29/17 12:57 Dose: 10 mg Collagenase (Santyl -) 1 applic TP DAILY [facility] Last Admin: 03/28/17 10:23 Dose: 1 applic Doxazosin Mesylate (Cardura -) 4 mg PO DAILY [facility] Last Admin: 03/29/17 12:58 Dose: 4 mg Duloxetine HCl (Cymbalta -) 30 mg PO DAILY [facility] Last Admin: 03/29/17 12:57 Dose: 30 mg Folic Acid (Folic Acid -) 1 mg PO DAILY [facility] Last Admin: 03/29/17 12:56 Dose: 1 mg Heparin Sodium (Porcine) (Heparin -) 5,000 unit SQ BID [facility] Last Admin: 03/29/17 12:59 Dose: 5,000 unit Hydromorphone HCl (Dilaudid Injection -) 1 mg IVPB Q4H PRN PRN Reason: PAIN Last Admin: 03/29/17 13:15 Dose: 1 mg Cefepime HCl 1 gm/ Dextrose 100 mls @ 200 mls/hr IVPB DAILY [facility] Last Admin: 03/29/17 12:58 Dose: 200 mls/hr Daptomycin 600 mg/ Sodium (Chloride) 100 mls @ 200 mls/hr IVPB Q48H [facility] Last Admin: 03/28/17 23:13 Dose: 200 mls/hr Insulin Aspart (Novolog Vial Sliding Scale -) 1 vial SQ ACHS [facility] PRN Reason: Protocol Last Admin: 03/29/17 12:54 Dose: Not Given Insulin Detemir (Levemir Vial) 15 units SQ BID@0700,2200 [facility] Last Admin: 03/29/17 06:11 Dose: 15 units Metoprolol Tartrate (Lopressor -) 50 mg PO BID [facility] Last Admin: 03/29/17 12:56 Dose: 50 mg Mirtazapine (Remeron -) 30 mg PO HS [facility] Last Admin: 03/28/17 22:21 Dose: 30 mg Oxycodone HCl (Roxicodone -) 10 mg PO Q4H PRN PRN Reason: PAIN 6-10 Last Admin: 03/28/17 11:55 Dose: 10 mg Sevelamer Carbonate (Renvela -) 800 mg PO TIDCM [facility] Last Admin: 03/29/17 12:56 Dose: 800 mg Sodium Bicarbonate (Sodium Bicarbonate -) 1,300 mg PO BID [facility] Last Admin: 03/29/17 12:55 Dose: 1,300 mg Torsemide (Demadex -) 40 mg PO DAILY [facility] Last Admin: 03/29/17 10:00 Dose: Not Given Trazodone HCl (Desyrel -) 300 mg PO HS [facility] Last Admin: 03/28/17 22:21 Dose: 300 mg - Objective Vital Signs: Vital Signs Temperature 98.6 F 03/29/17 13:52 Pulse Rate 70 03/29/17 13:52 Respiratory Rate 18 03/29/17 13:52 Blood Pressure 143/80 03/29/17 13:52 O2 Sat by Pulse Oximetry (%) 97 03/29/17 09:00 Constitutional: Yes: No Distress, Calm Cardiovascular: Yes: Regular Rate and Rhythm Respiratory: Yes: CTA Bilaterally Gastrointestinal: Yes: Normal Bowel Sounds, Soft Extremities: Yes: Amputation (LT BKA Rt plantar ulcer with mild drainage) Wound/Incision: Yes: Well Approximated Neurological: Yes: Alert, Oriented Labs: CBC, BMP 03/29/17 06:00 03/28/17 11:20 INR, PTT INR 1.14 (0.82-1.09) 03/18/17 17:50 - ....Imaging MRI: Report Reviewed Problem List - Problems (1) ARF (acute renal failure) Code(s): N17.9 - ACUTE KIDNEY FAILURE, UNSPECIFIED Qualifiers: Acute renal failure type: unspecified Qualified Code(s): N17.9 - Acute kidney failure, unspecified (2) Gangrene of left foot Code(s): I96 - GANGRENE, NOT ELSEWHERE CLASSIFIED (3) Syncope Code(s): R55 - SYNCOPE AND COLLAPSE Qualifiers: Syncope type: unspecified Qualified Code(s): R55 - Syncope and collapse (4) COPD with emphysema Code(s): J43.9 - EMPHYSEMA, UNSPECIFIED (5) Chronic renal insufficiency, stage IV (severe) Code(s): N18.4 - CHRONIC KIDNEY DISEASE, STAGE 4 (SEVERE) (6) Diabetic neuropathy Code(s): E11.40 - TYPE 2 DIABETES MELLITUS WITH DIABETIC NEUROPATHY, UNSP Qualifiers: 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 type: type 2 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 complication detail: diabetic polyneuropathy Qualified Code(s): E11.42 - Type 2 diabetes mellitus with diabetic polyneuropathy (7) Foot infection Code(s): L08.9 - LOCAL INFECTION OF THE SKIN AND SUBCUTANEOUS TISSUE, UNSP (8) Neuropathy Code(s): G62.9 - POLYNEUROPATHY, UNSPECIFIED (9) S/P amputation Code(s): Z89.9 - ACQUIRED ABSENCE OF LIMB, UNSPECIFIED (10) Type 2 diabetes mellitus with foot ulcer Code(s): E11.621 - TYPE 2 DIABETES MELLITUS WITH FOOT ULCER; L97.509 - NON- PRESSURE CHRONIC ULCER OTH PRT UNSP FOOT W UNSP SEVERITY (11) Osteomyelitis of right foot Code(s): M86.9 - OSTEOMYELITIS, UNSPECIFIED Assessment/Plan Leukocytosis - improved but remains elevated Lt BKA POD #2 ESRD now on HD - for bone biopsy next wk, needs bone culture - continue current antibiotics - monitor wbc vitals appear stable
[2017-03-29] MEDS: COLLAGENASE CLOSTRIDIUM HIST. 30 GRAMS TUBE TP SCH (18:24)
--- NOTE | 2017-03-29 20:07 | PN ---
Progress Note, Physician History of Present Illness: no complaints - Current Medication List Current Medications: Active Medications Albuterol Sulfate (Ventolin 0.083% Nebulizer Soln -) 1 amp NEB Q4H PRN PRN Reason: SHORT OF BREATH/WHEEZING Amlodipine Besylate (Norvasc -) 10 mg PO DAILY [facility] Last Admin: 03/29/17 12:57 Dose: 10 mg Collagenase (Santyl -) 1 applic TP DAILY [facility] Last Admin: 03/29/17 18:24 Dose: 1 applic Doxazosin Mesylate (Cardura -) 4 mg PO DAILY [facility] Last Admin: 03/29/17 12:58 Dose: 4 mg Duloxetine HCl (Cymbalta -) 30 mg PO DAILY [facility] Last Admin: 03/29/17 12:57 Dose: 30 mg Folic Acid (Folic Acid -) 1 mg PO DAILY [facility] Last Admin: 03/29/17 12:56 Dose: 1 mg Heparin Sodium (Porcine) (Heparin -) 5,000 unit SQ BID [facility] Last Admin: 03/29/17 12:59 Dose: 5,000 unit Hydromorphone HCl (Dilaudid Injection -) 1 mg IVPB Q4H PRN PRN Reason: PAIN Last Admin: 03/29/17 13:15 Dose: 1 mg Cefepime HCl 1 gm/ Dextrose 100 mls @ 200 mls/hr IVPB DAILY [facility] Last Admin: 03/29/17 12:58 Dose: 200 mls/hr Daptomycin 600 mg/ Sodium (Chloride) 100 mls @ 200 mls/hr IVPB Q48H [facility] Last Admin: 03/28/17 23:13 Dose: 200 mls/hr Insulin Aspart (Novolog Vial Sliding Scale -) 1 vial SQ ACHS [facility] PRN Reason: Protocol Last Admin: 03/29/17 17:06 Dose: Not Given Insulin Detemir (Levemir Vial) 15 units SQ BID@0700,2200 [facility] Last Admin: 03/29/17 06:11 Dose: 15 units Metoprolol Tartrate (Lopressor -) 50 mg PO BID [facility] Last Admin: 03/29/17 12:56 Dose: 50 mg Mirtazapine (Remeron -) 30 mg PO HS [facility] Last Admin: 03/28/17 22:21 Dose: 30 mg Oxycodone HCl (Roxicodone -) 10 mg PO Q4H PRN PRN Reason: PAIN 6-10 Last Admin: 03/28/17 11:55 Dose: 10 mg Sevelamer Carbonate (Renvela -) 800 mg PO TIDCM [facility] Last Admin: 03/29/17 17:03 Dose: 800 mg Sodium Bicarbonate (Sodium Bicarbonate -) 1,300 mg PO BID [facility] Last Admin: 03/29/17 12:55 Dose: 1,300 mg Torsemide (Demadex -) 40 mg PO DAILY [facility] Last Admin: 03/29/17 10:00 Dose: Not Given Trazodone HCl (Desyrel -) 300 mg PO HS [facility] Last Admin: 03/28/17 22:21 Dose: 300 mg - Objective Vital Signs: Vital Signs Temperature 98.4 F 03/29/17 18:00 Pulse Rate 68 03/29/17 18:00 Respiratory Rate 18 03/29/17 18:00 Blood Pressure 142/82 03/29/17 18:00 O2 Sat by Pulse Oximetry (%) 97 03/29/17 09:00 Constitutional: Yes: No Distress HENT: Yes: Atraumatic Neck: Yes: Supple Cardiovascular: Yes: Regular Rate and Rhythm Respiratory: Yes: CTA Bilaterally Gastrointestinal: Yes: Normal Bowel Sounds Extremities: Yes: Other (llex in dressing R foot in dressing) Neurological: Yes: Alert, Oriented Labs: CBC, BMP 03/29/17 06:00 03/28/17 11:20 INR, PTT INR 1.14 (0.82-1.09) 03/18/17 17:50 Problem List - Problems (1) ARF (acute renal failure) Assessment/Plan: on hd dr mendoza Code(s): N17.9 - ACUTE KIDNEY FAILURE, UNSPECIFIED Qualifiers: Acute renal failure type: unspecified Qualified Code(s): N17.9 - Acute kidney failure, unspecified (2) Hyperkalemia Assessment/Plan: on hd..will improve Code(s): E87.5 - HYPERKALEMIA (3) Hyponatremia Assessment/Plan: monitor ..on hd Code(s): E87.1 - HYPO-OSMOLALITY AND HYPONATREMIA (4) Syncope Assessment/Plan: resolved Code(s): R55 - SYNCOPE AND COLLAPSE Qualifiers: Syncope type: unspecified Qualified Code(s): R55 - Syncope and collapse (5) 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 Assessment/Plan: [facility] insulin Code(s): E11.9 - TYPE 2 DIABETES MELLITUS WITHOUT COMPLICATIONS Qualifiers: 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 type: type 2 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 complication status: without complication 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 halfway insulin use: without terminal operator use Qualified Code(s): E11.9 - Type 2 diabetes mellitus without complications (6) GERD (gastroesophageal reflux disease) Code(s): K21.9 - GASTRO-ESOPHAGEAL REFLUX DISEASE WITHOUT ESOPHAGITIS (7) HTN (hypertension) Assessment/Plan: on meds stable Code(s): I10 - ESSENTIAL (PRIMARY) HYPERTENSION Qualifiers: Hypertension type: essential hypertension Qualified Code(s): I10 - Essential (primary) hypertension (8) Type 2 diabetes mellitus with foot ulcer Assessment/Plan: s/p bka on saturday dr marin wants to bring hin to OR to clean R foot Code(s): E11.621 - TYPE 2 DIABETES MELLITUS WITH FOOT ULCER; L97.509 - NON- PRESSURE CHRONIC ULCER OTH PRT UNSP FOOT W UNSP SEVERITY
[2017-03-29] MEDS ORDERED: traZODone HCL 50 MG TABLET (FP) ONE (21:53)
[2017-03-29] MEDS ORDERED: INSULIN (NOVOLOG) ASPART 100 UNITS/ML 10ML VIAL ONE (21:54)
[2017-03-29] MEDS: MIRTAZAPINE 30 MG TABLET (FP) PO SCH (22:40)
[2017-03-29] MEDS: traZODone HCL 100 MG TABLET (FP) PO SCH (22:40)
[2017-03-29] MEDS: oxyCODONE HCL 5 MG TABLET PO PRN (22:41)
[2017-03-30] MEDS ORDERED: DEXTROSE 50%-WATER - 25 GM/50 ML VIAL IVPUSH ONE (07:00)
[2017-03-30] MEDS ORDERED: DEXTROSE 50%-WATER 25 GM/50 ML DISP.SYRIN ONE (07:11)
[2017-03-30] MEDS: INSULIN SLIDING SCALE (NOVOLOG) 1 VIAL SQ SCH ×4 (07:15→21:42)
[2017-03-30] MEDS: INSULIN DETEMIR 100 UNITS/ML MDV SQ SCH ×2 (07:15→21:41)
[2017-03-30] MEDS: SEVELAMER CARBONATE 800 MG TAB (FP) PO SCH ×3 (08:03→17:50)
--- NOTE | 2017-03-30 09:50 | PN ---
Progress Note (short form) - Note Progress Note: Renal Follow up for FROYLAN on CKD Pt seen and examined at the bedside continues to have pain at surgical site that is somewhat helped with meds no sob, chest pain, abd pain s/p dialysis yesterday Vital Signs Temperature 97.3 F L 03/30/17 06:00 Pulse Rate 85 03/30/17 06:00 Respiratory Rate 20 03/30/17 06:00 Blood Pressure 153/85 03/30/17 06:00 O2 Sat by Pulse Oximetry (%) 96 03/29/17 21:00 Intake & Output 03/27/17 03/28/17 03/29/17 03/30/17 23:59 23:59 23:59 23:59 Intake Total 1800 1475 850 500 Output Total 811 231 7888 300 Balance 1050 725 -550 200 Weight 98.43 kg 98.685 kg 99.847 kg 99.155 kg NAD awake and alert RRR Dec Bs at lung bases, no rales soft NT/ND Trace to 1+ Le edema CBC, BMP 03/29/17 06:00 03/28/17 11:20 Current Medications Albuterol Sulfate (Ventolin 0.083% Nebulizer Soln -) 1 amp NEB Q4H PRN PRN Reason: SHORT OF BREATH/WHEEZING Amlodipine Besylate (Norvasc -) 10 mg PO DAILY [facility] Last Admin: 03/29/17 12:57 Dose: 10 mg Collagenase (Santyl -) 1 applic TP DAILY [facility] Last Admin: 03/29/17 18:24 Dose: 1 applic Doxazosin Mesylate (Cardura -) 4 mg PO DAILY [facility] Last Admin: 03/29/17 12:58 Dose: 4 mg Duloxetine HCl (Cymbalta -) 30 mg PO DAILY [facility] Last Admin: 03/29/17 12:57 Dose: 30 mg Folic Acid (Folic Acid -) 1 mg PO DAILY [facility] Last Admin: 03/29/17 12:56 Dose: 1 mg Heparin Sodium (Porcine) (Heparin -) 5,000 unit SQ BID [facility] Last Admin: 03/29/17 22:39 Dose: 5,000 unit Hydromorphone HCl (Dilaudid Injection -) 1 mg IVPB Q4H PRN PRN Reason: PAIN Last Admin: 03/29/17 13:15 Dose: 1 mg Cefepime HCl 1 gm/ Dextrose 100 mls @ 200 mls/hr IVPB DAILY [facility] Last Admin: 03/29/17 12:58 Dose: 200 mls/hr Daptomycin 600 mg/ Sodium (Chloride) 100 mls @ 200 mls/hr IVPB Q48H [facility] Last Admin: 03/28/17 23:13 Dose: 200 mls/hr Insulin Aspart (Novolog Vial Sliding Scale -) 1 vial SQ ACHS [facility] PRN Reason: Protocol Last Admin: 03/30/17 07:15 Dose: Not Given Insulin Detemir (Levemir Vial) 15 units SQ BID@0700,2200 [facility] Last Admin: 03/30/17 07:15 Dose: Not Given Metoprolol Tartrate (Lopressor -) 50 mg PO BID [facility] Last Admin: 03/29/17 22:40 Dose: 50 mg Mirtazapine (Remeron -) 30 mg PO HS [facility] Last Admin: 03/29/17 22:40 Dose: 30 mg Oxycodone HCl (Roxicodone -) 10 mg PO Q4H PRN PRN Reason: PAIN 6-10 Last Admin: 03/29/17 22:41 Dose: 10 mg Sevelamer Carbonate (Renvela -) 800 mg PO TIDCM [facility] Last Admin: 03/29/17 17:03 Dose: 800 mg Sodium Bicarbonate (Sodium Bicarbonate -) 1,300 mg PO BID [facility] Last Admin: 03/29/17 22:39 Dose: 1,300 mg Torsemide (Demadex -) 40 mg PO DAILY [facility] Last Admin: 03/29/17 10:00 Dose: Not Given Trazodone HCl (Desyrel -) 300 mg PO HS [facility] Last Admin: 03/29/17 22:40 Dose: 300 mg 61 year old gentleman with PMhx of CKD stage 4 (baseline Cr 2.8), Hypertension , DM, PVD, Depression who presented with syncope and found to have acute on chronic renal failure with hyperkalemia and hyponatremia. #Acute Renal Failure now with ESRD on HD s/p HD yesterday, no acute indication for SHIRT PRESSER next anticipated Tx is Saturday #Leukocytosis/Sepsis/infected LE wound continue Abx as per ID s/p left foot amputation pain control to get dapto today and next dose to be given saturday #Acute on Chronic anemia s/p PRBC transfusions will give ADRIAN with HD Miguel Inderjit DO Problem List - Problems (1) Hyponatremia Code(s): E87.1 - HYPO-OSMOLALITY AND HYPONATREMIA (2) ARF (acute renal failure) Code(s): N17.9 - ACUTE KIDNEY FAILURE, UNSPECIFIED Qualifiers: Acute renal failure type: unspecified Qualified Code(s): N17.9 - Acute kidney failure, unspecified (3) Hyperkalemia Code(s): E87.5 - HYPERKALEMIA (4) Syncope Code(s): R55 - SYNCOPE AND COLLAPSE Qualifiers: Syncope type: unspecified Qualified Code(s): R55 - Syncope and collapse (5) FROYLAN (acute kidney injury) Code(s): N17.9 - ACUTE KIDNEY FAILURE, UNSPECIFIED
[2017-03-30] MEDS ORDERED: PT OWN MED DRAWER 7, Y5N ONE ×2 (10:56→11:08)
[2017-03-30] MEDS: CEFEPIME 1 GM in DEXTROSE 5%-WATER - 100 ML IVPB SCH (10:59)
[2017-03-30] MEDS: HEPARIN NA (PORCINE) 5,000 UNITS/ML 1ML VIAL SQ SCH ×2 (11:02→21:41)
[2017-03-30] MEDS: SODIUM BICARBONATE 650 MG TABLET PO SCH ×2 (11:03→21:41)
[2017-03-30] MEDS: FOLIC ACID 1 MG TABLET (FP) PO SCH (11:03)
[2017-03-30] MEDS: TORSEMIDE 20 MG TABLET (FP) PO SCH (11:04)
[2017-03-30] MEDS: METOPROLOL TARTRATE 50 MG TABLET (FP) PO SCH ×2 (11:04→21:41)
[2017-03-30] MEDS: DULoxetine HCL 30 MG CAPSULE.DR (FP) PO SCH (11:04)
[2017-03-30] MEDS: COLLAGENASE CLOSTRIDIUM HIST. 30 GRAMS TUBE TP SCH (11:04)
[2017-03-30] MEDS: amLODIPine BESYLATE 10 MG TABLET (FP) PO SCH (11:04)
[2017-03-30] MEDS: DOXAZOSIN MESYLATE 4 MG TABLET PO SCH (11:12)
--- NOTE | 2017-03-30 15:48 | PN ---
Progress Note, Physician History of Present Illness: Pt c/o loose BMs since last night. No abd discomfort. Remains afebrile. No other specific complaints. - Current Medication List Current Medications: Active Medications Albuterol Sulfate (Ventolin 0.083% Nebulizer Soln -) 1 amp NEB Q4H PRN PRN Reason: SHORT OF BREATH/WHEEZING Amlodipine Besylate (Norvasc -) 10 mg PO DAILY [facility] Last Admin: 03/30/17 11:04 Dose: 10 mg Collagenase (Santyl -) 1 applic TP DAILY [facility] Last Admin: 03/30/17 11:04 Dose: 1 applic Doxazosin Mesylate (Cardura -) 4 mg PO DAILY [facility] Last Admin: 03/30/17 11:12 Dose: 4 mg Duloxetine HCl (Cymbalta -) 30 mg PO DAILY [facility] Last Admin: 03/30/17 11:04 Dose: 30 mg Folic Acid (Folic Acid -) 1 mg PO DAILY [facility] Last Admin: 03/30/17 11:03 Dose: 1 mg Heparin Sodium (Porcine) (Heparin -) 5,000 unit SQ BID [facility] Last Admin: 03/30/17 11:02 Dose: 5,000 unit Hydromorphone HCl (Dilaudid Injection -) 1 mg IVPB Q4H PRN PRN Reason: PAIN Last Admin: 03/29/17 13:15 Dose: 1 mg Insulin Aspart (Novolog Vial Sliding Scale -) 1 vial SQ ACHS [facility] PRN Reason: Protocol Last Admin: 03/30/17 12:33 Dose: Not Given Insulin Detemir (Levemir Vial) 15 units SQ BID@0700,2200 [facility] Last Admin: 03/30/17 07:15 Dose: Not Given Metoprolol Tartrate (Lopressor -) 50 mg PO BID [facility] Last Admin: 03/30/17 11:04 Dose: 50 mg Mirtazapine (Remeron -) 30 mg PO HS [facility] Last Admin: 03/29/17 22:40 Dose: 30 mg Oxycodone HCl (Roxicodone -) 10 mg PO Q4H PRN PRN Reason: PAIN 6-10 Last Admin: 03/29/17 22:41 Dose: 10 mg Sevelamer Carbonate (Renvela -) 800 mg PO TIDCM [facility] Last Admin: 03/30/17 12:33 Dose: Not Given Sodium Bicarbonate (Sodium Bicarbonate -) 1,300 mg PO BID [facility] Last Admin: 03/30/17 11:03 Dose: 1,300 mg Torsemide (Demadex -) 40 mg PO DAILY [facility] Last Admin: 03/30/17 11:04 Dose: 40 mg Trazodone HCl (Desyrel -) 300 mg PO HS [facility] Last Admin: 03/29/17 22:40 Dose: 300 mg - Objective Vital Signs: Vital Signs Temperature 97.3 F L 03/30/17 06:00 Pulse Rate 85 03/30/17 06:00 Respiratory Rate 20 03/30/17 06:00 Blood Pressure 153/85 03/30/17 06:00 O2 Sat by Pulse Oximetry (%) 96 03/29/17 21:00 Constitutional: Yes: No Distress, Calm Neck: Yes: Supple Cardiovascular: Yes: Regular Rate and Rhythm Respiratory: Yes: Regular Gastrointestinal: Yes: Normal Bowel Sounds, Soft Extremities: Yes: Amputation (Lt BKA , Rt foot dressed) Wound/Incision: Yes: Dressing Dry and Intact Labs: CBC, BMP 03/29/17 06:00 03/28/17 11:20 INR, PTT INR 1.14 (0.82-1.09) 03/18/17 17:50 Problem List - Problems (1) ARF (acute renal failure) Code(s): N17.9 - ACUTE KIDNEY FAILURE, UNSPECIFIED Qualifiers: Acute renal failure type: unspecified Qualified Code(s): N17.9 - Acute kidney failure, unspecified (2) Gangrene of left foot Code(s): I96 - GANGRENE, NOT ELSEWHERE CLASSIFIED (3) Syncope Code(s): R55 - SYNCOPE AND COLLAPSE Qualifiers: Syncope type: unspecified Qualified Code(s): R55 - Syncope and collapse (4) COPD with emphysema Code(s): J43.9 - EMPHYSEMA, UNSPECIFIED (5) Chronic renal insufficiency, stage IV (severe) Code(s): N18.4 - CHRONIC KIDNEY DISEASE, STAGE 4 (SEVERE) (6) Diabetic neuropathy Code(s): E11.40 - TYPE 2 DIABETES MELLITUS WITH DIABETIC NEUROPATHY, UNSP Qualifiers: 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 type: type 2 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 complication detail: diabetic polyneuropathy Qualified Code(s): E11.42 - Type 2 diabetes mellitus with diabetic polyneuropathy (7) Foot infection Code(s): L08.9 - LOCAL INFECTION OF THE SKIN AND SUBCUTANEOUS TISSUE, UNSP (8) Neuropathy Code(s): G62.9 - POLYNEUROPATHY, UNSPECIFIED (9) S/P amputation Code(s): Z89.9 - ACQUIRED ABSENCE OF LIMB, UNSPECIFIED (10) Type 2 diabetes mellitus with foot ulcer Code(s): E11.621 - TYPE 2 DIABETES MELLITUS WITH FOOT ULCER; L97.509 - NON- PRESSURE CHRONIC ULCER OTH PRT UNSP FOOT W UNSP SEVERITY (11) Osteomyelitis of right foot Code(s): M86.9 - OSTEOMYELITIS, UNSPECIFIED Assessment/Plan Lt LE gangrene/infection Streptococcal Bacteremia resolved FROYLAN/CKD now ESRD on HD Leukocytosis Diarrhea - CDT (-) - will hold antibiotics for now - awaiting bone biopsy - cont wound care
[2017-03-30] MEDS: oxyCODONE HCL 5 MG TABLET PO PRN (17:47)
--- NOTE | 2017-03-30 18:14 | PN ---
Progress Note, Physician History of Present Illness: no complaints - Current Medication List Current Medications: Active Medications Albuterol Sulfate (Ventolin 0.083% Nebulizer Soln -) 1 amp NEB Q4H PRN PRN Reason: SHORT OF BREATH/WHEEZING Amlodipine Besylate (Norvasc -) 10 mg PO DAILY [facility] Last Admin: 03/30/17 11:04 Dose: 10 mg Collagenase (Santyl -) 1 applic TP DAILY [facility] Last Admin: 03/30/17 11:04 Dose: 1 applic Doxazosin Mesylate (Cardura -) 4 mg PO DAILY [facility] Last Admin: 03/30/17 11:12 Dose: 4 mg Duloxetine HCl (Cymbalta -) 30 mg PO DAILY [facility] Last Admin: 03/30/17 11:04 Dose: 30 mg Folic Acid (Folic Acid -) 1 mg PO DAILY [facility] Last Admin: 03/30/17 11:03 Dose: 1 mg Heparin Sodium (Porcine) (Heparin -) 5,000 unit SQ BID [facility] Last Admin: 03/30/17 11:02 Dose: 5,000 unit Hydromorphone HCl (Dilaudid Injection -) 1 mg IVPB Q4H PRN PRN Reason: PAIN Last Admin: 03/29/17 13:15 Dose: 1 mg Insulin Aspart (Novolog Vial Sliding Scale -) 1 vial SQ ACHS [facility] PRN Reason: Protocol Last Admin: 03/30/17 17:49 Dose: Not Given Insulin Detemir (Levemir Vial) 15 units SQ BID@0700,2200 [facility] Last Admin: 03/30/17 07:15 Dose: Not Given Metoprolol Tartrate (Lopressor -) 50 mg PO BID [facility] Last Admin: 03/30/17 11:04 Dose: 50 mg Mirtazapine (Remeron -) 30 mg PO HS [facility] Last Admin: 03/29/17 22:40 Dose: 30 mg Oxycodone HCl (Roxicodone -) 10 mg PO Q4H PRN PRN Reason: PAIN 6-10 Last Admin: 03/30/17 17:47 Dose: 10 mg Sevelamer Carbonate (Renvela -) 800 mg PO TIDCM [facility] Last Admin: 03/30/17 17:50 Dose: Not Given Sodium Bicarbonate (Sodium Bicarbonate -) 1,300 mg PO BID [facility] Last Admin: 03/30/17 11:03 Dose: 1,300 mg Torsemide (Demadex -) 40 mg PO DAILY [facility] Last Admin: 03/30/17 11:04 Dose: 40 mg Trazodone HCl (Desyrel -) 300 mg PO HS [facility] Last Admin: 03/29/17 22:40 Dose: 300 mg - Objective Vital Signs: Vital Signs Temperature 98.8 F 03/30/17 15:45 Pulse Rate 91 H 03/30/17 15:45 Respiratory Rate 20 03/30/17 15:45 Blood Pressure 150/87 03/30/17 15:45 O2 Sat by Pulse Oximetry (%) 96 03/29/17 21:00 Constitutional: Yes: No Distress HENT: Yes: Atraumatic Neck: Yes: Supple Cardiovascular: Yes: Regular Rate and Rhythm Respiratory: Yes: CTA Bilaterally Gastrointestinal: Yes: Normal Bowel Sounds Extremities: Yes: Other (llex/r foot in dressing) Neurological: Yes: Alert, Oriented Labs: CBC, BMP 03/29/17 06:00 03/28/17 11:20 INR, PTT INR 1.14 (0.82-1.09) 03/18/17 17:50 Problem List - Problems (1) ARF (acute renal failure) Assessment/Plan: on hd dr mendoza Code(s): N17.9 - ACUTE KIDNEY FAILURE, UNSPECIFIED Qualifiers: Acute renal failure type: unspecified Qualified Code(s): N17.9 - Acute kidney failure, unspecified (2) Hyperkalemia Assessment/Plan: on hd..will improve Code(s): E87.5 - HYPERKALEMIA (3) Hyponatremia Assessment/Plan: monitor ..on hd Code(s): E87.1 - HYPO-OSMOLALITY AND HYPONATREMIA (4) Syncope Assessment/Plan: resolved Code(s): R55 - SYNCOPE AND COLLAPSE Qualifiers: Syncope type: unspecified Qualified Code(s): R55 - Syncope and collapse (5) 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 Assessment/Plan: [facility] insulin Code(s): E11.9 - TYPE 2 DIABETES MELLITUS WITHOUT COMPLICATIONS Qualifiers: 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 type: type 2 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 complication status: without complication 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 director long term care insulin use: without director long term care use Qualified Code(s): E11.9 - Type 2 diabetes mellitus without complications (6) GERD (gastroesophageal reflux disease) Code(s): K21.9 - GASTRO-ESOPHAGEAL REFLUX DISEASE WITHOUT ESOPHAGITIS (7) HTN (hypertension) Code(s): I10 - ESSENTIAL (PRIMARY) HYPERTENSION Qualifiers: Hypertension type: essential hypertension Qualified Code(s): I10 - Essential (primary) hypertension (8) Type 2 diabetes mellitus with foot ulcer Code(s): E11.621 - TYPE 2 DIABETES MELLITUS WITH FOOT ULCER; L97.509 - NON- PRESSURE CHRONIC ULCER OTH PRT UNSP FOOT W UNSP SEVERITY
[2017-03-30] MEDS ORDERED: traZODone HCL 50 MG TABLET (FP) ONE (21:38)
[2017-03-30] MEDS ORDERED: INSULIN (NOVOLOG) ASPART 100 UNITS/ML 10ML VIAL ONE (21:38)
[2017-03-30] MEDS: MIRTAZAPINE 30 MG TABLET (FP) PO SCH (21:41)
[2017-03-30] MEDS: traZODone HCL 100 MG TABLET (FP) PO SCH (21:42)
[2017-03-30] MEDS: HYDROmorphone HCL CARPU-JECT 2 MG/1 ML DISP.SYRIN IVPB PRN (21:51)
[2017-03-31] MEDS: INSULIN DETEMIR 100 UNITS/ML MDV SQ SCH ×2 (06:25→22:08)
[2017-03-31] MEDS ORDERED: INSULIN (NOVOLOG) ASPART 100 UNITS/ML 10ML VIAL ONE (06:26)
[2017-03-31] MEDS: INSULIN SLIDING SCALE (NOVOLOG) 1 VIAL SQ SCH ×4 (06:28→22:09)
[2017-03-31 07:28] LABS: MCH 27.5 pg (25.7-33.7); MCHC 31.8 g/dl (32.0-35.9); MEAN CELL VOLUME 86.3 fl (80-96); MEAN PLT VOLUME 7.7 fl (7.5-11.1); PLATELET COUNT 461 K/MM3 (134-434); RDW 16.6 % (11.9-15.9); WHITE BLOOD COUNT 20.5 K/mm3 (4.0-10.0)
[2017-03-31 07:46] LABS: ANION GAP 5 (8-16); CALCIUM 7.1 mg/dL (8.5-10.1); CO2 32 mmol/L (21-32); CREATININE 3.4 mg/dL (0.7-1.3); GLUCOSE,RANDOM 251 mg/dL (74-106)
[2017-03-31] MEDS ORDERED: PT OWN MED DRAWER 7, Y5N ONE (10:23)
[2017-03-31] MEDS: HEPARIN NA (PORCINE) 5,000 UNITS/ML 1ML VIAL SQ SCH ×2 (10:36→22:07)
[2017-03-31] MEDS: FOLIC ACID 1 MG TABLET (FP) PO SCH (10:37)
[2017-03-31] MEDS: METOPROLOL TARTRATE 50 MG TABLET (FP) PO SCH ×2 (10:37→22:09)
[2017-03-31] MEDS: COLLAGENASE CLOSTRIDIUM HIST. 30 GRAMS TUBE TP SCH (10:37)
[2017-03-31] MEDS: DULoxetine HCL 30 MG CAPSULE.DR (FP) PO SCH (10:37)
[2017-03-31] MEDS: TORSEMIDE 20 MG TABLET (FP) PO SCH (10:37)
[2017-03-31] MEDS: SEVELAMER CARBONATE 800 MG TAB (FP) PO SCH ×3 (10:37→17:39)
[2017-03-31] MEDS: amLODIPine BESYLATE 10 MG TABLET (FP) PO SCH (10:37)
[2017-03-31] MEDS: SODIUM BICARBONATE 650 MG TABLET PO SCH ×2 (10:37→22:08)
[2017-03-31] MEDS: PANTOPRAZOLE 40 MG TABLET (FP) PO SCH (10:37)
[2017-03-31] MEDS: DOXAZOSIN MESYLATE 4 MG TABLET PO SCH (10:37)
[2017-03-31 10:48] LABS: TOTAL CELLS COUNTED 100
[2017-03-31 10:49] LABS: PLATELET ESTIMATE ADEQUATE
[2017-03-31] MEDS ORDERED: HYDROmorphone HCL CARPU-JECT 2 MG/1 ML DISP.SYRIN ONE (12:29)
[2017-03-31] MEDS: HYDROmorphone HCL CARPU-JECT 2 MG/1 ML DISP.SYRIN IVPB PRN (12:37)
[2017-03-31] MEDS ORDERED: oxyCODONE HCL 5 MG TABLET ONE (15:33)
--- NOTE | 2017-03-31 16:14 | PN ---
Progress Note, Physician History of Present Illness: Pt afebrile, no new complaints. No diarrhea today. - Current Medication List Current Medications: Active Medications Albuterol Sulfate (Ventolin 0.083% Nebulizer Soln -) 1 amp NEB Q4H PRN PRN Reason: SHORT OF BREATH/WHEEZING Amlodipine Besylate (Norvasc -) 10 mg PO DAILY [facility] Last Admin: 03/31/17 10:37 Dose: 10 mg Collagenase (Santyl -) 1 applic TP DAILY [facility] Last Admin: 03/31/17 10:37 Dose: 1 applic Doxazosin Mesylate (Cardura -) 4 mg PO DAILY [facility] Last Admin: 03/31/17 10:37 Dose: 4 mg Duloxetine HCl (Cymbalta -) 30 mg PO DAILY [facility] Last Admin: 03/31/17 10:37 Dose: 30 mg Folic Acid (Folic Acid -) 1 mg PO DAILY [facility] Last Admin: 03/31/17 10:37 Dose: 1 mg Heparin Sodium (Porcine) (Heparin -) 5,000 unit SQ BID [facility] Last Admin: 03/31/17 10:36 Dose: 5,000 unit Insulin Aspart (Novolog Vial Sliding Scale -) 1 vial SQ ACHS [facility] PRN Reason: Protocol Last Admin: 03/31/17 12:17 Dose: Not Given Insulin Detemir (Levemir Vial) 15 units SQ BID@0700,2200 [facility] Last Admin: 03/31/17 06:25 Dose: 15 units Metoprolol Tartrate (Lopressor -) 50 mg PO BID [facility] Last Admin: 03/31/17 10:37 Dose: 50 mg Mirtazapine (Remeron -) 30 mg PO HS [facility] Last Admin: 03/30/17 21:41 Dose: 30 mg Pantoprazole Sodium (Protonix -) 40 mg PO DAILY [facility] Last Admin: 03/31/17 10:37 Dose: 40 mg Sevelamer Carbonate (Renvela -) 800 mg PO TIDCM [facility] Last Admin: 03/31/17 12:25 Dose: 800 mg Sodium Bicarbonate (Sodium Bicarbonate -) 1,300 mg PO BID [facility] Last Admin: 03/31/17 10:37 Dose: 1,300 mg Torsemide (Demadex -) 40 mg PO DAILY [facility] Last Admin: 03/31/17 10:37 Dose: 40 mg Trazodone HCl (Desyrel -) 300 mg PO HS [facility] Last Admin: 03/30/17 21:42 Dose: 300 mg - Objective Vital Signs: Vital Signs Temperature 97.7 F 03/31/17 14:45 Pulse Rate 78 03/31/17 14:45 Respiratory Rate 18 03/31/17 14:45 Blood Pressure 141/91 03/31/17 14:45 O2 Sat by Pulse Oximetry (%) 98 03/31/17 09:00 Constitutional: Yes: No Distress, Calm Neck: Yes: Supple Cardiovascular: Yes: Regular Rate and Rhythm Respiratory: Yes: Regular Gastrointestinal: Yes: Normal Bowel Sounds, Soft Extremities: Yes: Amputation (Lt BKA Rt foot dressed) Wound/Incision: Yes: Dressing Dry and Intact Labs: CBC, BMP 03/31/17 06:50 03/31/17 06:50 INR, PTT INR 1.14 (0.82-1.09) 03/18/17 17:50 Microbiology 03/30/17 12:03 Stool Clostridium difficile Antigen ([facility]) - Final 03/30/17 12:03 Stool Clostridium difficile Toxin Assay - Final Problem List - Problems (1) ARF (acute renal failure) Code(s): N17.9 - ACUTE KIDNEY FAILURE, UNSPECIFIED Qualifiers: Acute renal failure type: unspecified Qualified Code(s): N17.9 - Acute kidney failure, unspecified (2) Gangrene of left foot Code(s): I96 - GANGRENE, NOT ELSEWHERE CLASSIFIED (3) Syncope Code(s): R55 - SYNCOPE AND COLLAPSE Qualifiers: Syncope type: unspecified Qualified Code(s): R55 - Syncope and collapse (4) COPD with emphysema Code(s): J43.9 - EMPHYSEMA, UNSPECIFIED (5) Chronic renal insufficiency, stage IV (severe) Code(s): N18.4 - CHRONIC KIDNEY DISEASE, STAGE 4 (SEVERE) (6) Diabetic neuropathy Code(s): E11.40 - TYPE 2 DIABETES MELLITUS WITH DIABETIC NEUROPATHY, UNSP Qualifiers: 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 type: type 2 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 complication detail: diabetic polyneuropathy Qualified Code(s): E11.42 - Type 2 diabetes mellitus with diabetic polyneuropathy (7) Foot infection Code(s): L08.9 - LOCAL INFECTION OF THE SKIN AND SUBCUTANEOUS TISSUE, UNSP (8) Neuropathy Code(s): G62.9 - POLYNEUROPATHY, UNSPECIFIED (9) S/P amputation Code(s): Z89.9 - ACQUIRED ABSENCE OF LIMB, UNSPECIFIED (10) Type 2 diabetes mellitus with foot ulcer Code(s): E11.621 - TYPE 2 DIABETES MELLITUS WITH FOOT ULCER; L97.509 - NON- PRESSURE CHRONIC ULCER OTH PRT UNSP FOOT W UNSP SEVERITY (11) Osteomyelitis of right foot Code(s): M86.9 - OSTEOMYELITIS, UNSPECIFIED Assessment/Plan Lt LE gangrene/infection s/p BKA s/p Streptococcal Bacteremia FROYLAN/CKD now ESRD on HD Persistent Leukocytosis - increased since yesterday (fluctuating) Rt foot OM Diarrhea - CDT (-) - continue monitor off antibiotics for now, pts vitals stable - awaiting bone biopsy/culture - will need antibiotics if infected Rt foot areas not amputated - repeat cbc in a.m. - cont wound care
--- NOTE | 2017-03-31 17:30 | PN ---
Progress Note, Physician History of Present Illness: no complaints - Current Medication List Current Medications: Active Medications Albuterol Sulfate (Ventolin 0.083% Nebulizer Soln -) 1 amp NEB Q4H PRN PRN Reason: SHORT OF BREATH/WHEEZING Amlodipine Besylate (Norvasc -) 10 mg PO DAILY [facility] Last Admin: 03/31/17 10:37 Dose: 10 mg Collagenase (Santyl -) 1 applic TP DAILY [facility] Last Admin: 03/31/17 10:37 Dose: 1 applic Doxazosin Mesylate (Cardura -) 4 mg PO DAILY [facility] Last Admin: 03/31/17 10:37 Dose: 4 mg Duloxetine HCl (Cymbalta -) 30 mg PO DAILY [facility] Last Admin: 03/31/17 10:37 Dose: 30 mg Folic Acid (Folic Acid -) 1 mg PO DAILY [facility] Last Admin: 03/31/17 10:37 Dose: 1 mg Heparin Sodium (Porcine) (Heparin -) 5,000 unit SQ BID [facility] Last Admin: 03/31/17 10:36 Dose: 5,000 unit Insulin Aspart (Novolog Vial Sliding Scale -) 1 vial SQ ACHS [facility] PRN Reason: Protocol Last Admin: 03/31/17 17:20 Dose: Not Given Insulin Detemir (Levemir Vial) 15 units SQ BID@0700,2200 [facility] Last Admin: 03/31/17 06:25 Dose: 15 units Metoprolol Tartrate (Lopressor -) 50 mg PO BID [facility] Last Admin: 03/31/17 10:37 Dose: 50 mg Mirtazapine (Remeron -) 30 mg PO HS [facility] Last Admin: 03/30/17 21:41 Dose: 30 mg Pantoprazole Sodium (Protonix -) 40 mg PO DAILY [facility] Last Admin: 03/31/17 10:37 Dose: 40 mg Sevelamer Carbonate (Renvela -) 800 mg PO TIDCM [facility] Last Admin: 03/31/17 12:25 Dose: 800 mg Sodium Bicarbonate (Sodium Bicarbonate -) 1,300 mg PO BID [facility] Last Admin: 03/31/17 10:37 Dose: 1,300 mg Torsemide (Demadex -) 40 mg PO DAILY [facility] Last Admin: 03/31/17 10:37 Dose: 40 mg Trazodone HCl (Desyrel -) 300 mg PO HS [facility] Last Admin: 03/30/17 21:42 Dose: 300 mg - Objective Vital Signs: Vital Signs Temperature 97.7 F 03/31/17 14:45 Pulse Rate 78 03/31/17 14:45 Respiratory Rate 18 03/31/17 14:45 Blood Pressure 141/91 03/31/17 14:45 O2 Sat by Pulse Oximetry (%) 98 03/31/17 09:00 Constitutional: Yes: No Distress HENT: Yes: Atraumatic Neck: Yes: Supple Cardiovascular: Yes: Regular Rate and Rhythm Respiratory: Yes: CTA Bilaterally Gastrointestinal: Yes: Normal Bowel Sounds Extremities: Yes: Other (llex and r foot in dressing) Neurological: Yes: Alert, Oriented Labs: CBC, BMP 03/31/17 06:50 03/31/17 06:50 INR, PTT INR 1.14 (0.82-1.09) 03/18/17 17:50 Problem List - Problems (1) ARF (acute renal failure) Assessment/Plan: on hd dr mendoza Code(s): N17.9 - ACUTE KIDNEY FAILURE, UNSPECIFIED Qualifiers: Acute renal failure type: unspecified Qualified Code(s): N17.9 - Acute kidney failure, unspecified (2) Hyperkalemia Assessment/Plan: on hd..will improve Code(s): E87.5 - HYPERKALEMIA (3) Hyponatremia Assessment/Plan: monitor ..on hd Code(s): E87.1 - HYPO-OSMOLALITY AND HYPONATREMIA (4) Syncope Assessment/Plan: resolved Code(s): R55 - SYNCOPE AND COLLAPSE Qualifiers: Syncope type: unspecified Qualified Code(s): R55 - Syncope and collapse (5) 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 Assessment/Plan: bgms insulin Code(s): E11.9 - TYPE 2 DIABETES MELLITUS WITHOUT COMPLICATIONS Qualifiers: 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 type: type 2 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 complication status: without complication 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 watermaster insulin use: without assisted use Qualified Code(s): E11.9 - Type 2 diabetes mellitus without complications (6) GERD (gastroesophageal reflux disease) Code(s): K21.9 - GASTRO-ESOPHAGEAL REFLUX DISEASE WITHOUT ESOPHAGITIS (7) HTN (hypertension) Assessment/Plan: on meds stable Code(s): I10 - ESSENTIAL (PRIMARY) HYPERTENSION Qualifiers: Hypertension type: essential hypertension Qualified Code(s): I10 - Essential (primary) hypertension (8) Type 2 diabetes mellitus with foot ulcer Assessment/Plan: s/p bka on saturday dr marin wants to bring hin to OR to clean R foot Code(s): E11.621 - TYPE 2 DIABETES MELLITUS WITH FOOT ULCER; L97.509 - NON- PRESSURE CHRONIC ULCER OTH PRT UNSP FOOT W UNSP SEVERITY
[2017-03-31] MEDS ORDERED: HYDROmorphone HCL CARPU-JECT 1 MG/1 ML DISP.SYRIN IVPB PRN (18:00)
[2017-03-31] MEDS: GABAPENTIN 100 MG CAPSULE (FP) PO SCH ×2 (18:26→22:08)
--- NOTE | 2017-03-31 19:42 | PN ---
Progress Note, Physician Chief Complaint: s/p Incision and drainage left foot and above ankle resection pending formal transtibial resection as well as a 5th metatarsal ulceration contralaterally ( right foot) Positive MRI strongly suugeestive of osteomyelitis of the 5th right MTPJ - Current Medication List Current Medications: Active Medications Albuterol Sulfate (Ventolin 0.083% Nebulizer Soln -) 1 amp NEB Q4H PRN PRN Reason: SHORT OF BREATH/WHEEZING Amlodipine Besylate (Norvasc -) 10 mg PO DAILY [facility] Last Admin: 03/31/17 10:37 Dose: 10 mg Collagenase (Santyl -) 1 applic TP DAILY [facility] Last Admin: 03/31/17 10:37 Dose: 1 applic Doxazosin Mesylate (Cardura -) 4 mg PO DAILY [facility] Last Admin: 03/31/17 10:37 Dose: 4 mg Duloxetine HCl (Cymbalta -) 30 mg PO DAILY [facility] Last Admin: 03/31/17 10:37 Dose: 30 mg Folic Acid (Folic Acid -) 1 mg PO DAILY [facility] Last Admin: 03/31/17 10:37 Dose: 1 mg Gabapentin (Neurontin -) 100 mg PO TID [facility] Last Admin: 03/31/17 18:26 Dose: 100 mg Heparin Sodium (Porcine) (Heparin -) 5,000 unit SQ BID [facility] Last Admin: 03/31/17 10:36 Dose: 5,000 unit Hydromorphone HCl (Dilaudid Injection -) 1 mg IVPB Q3H PRN PRN Reason: PAIN Insulin Aspart (Novolog Vial Sliding Scale -) 1 vial SQ ACHS [facility] PRN Reason: Protocol Last Admin: 03/31/17 17:20 Dose: Not Given Insulin Detemir (Levemir Vial) 15 units SQ BID@0700,2200 [facility] Last Admin: 03/31/17 06:25 Dose: 15 units Metoprolol Tartrate (Lopressor -) 50 mg PO BID [facility] Last Admin: 03/31/17 10:37 Dose: 50 mg Mirtazapine (Remeron -) 30 mg PO HS [facility] Last Admin: 03/30/17 21:41 Dose: 30 mg Oxycodone HCl (Roxicodone -) 10 mg PO Q6H PRN PRN Reason: PAIN Pantoprazole Sodium (Protonix -) 40 mg PO DAILY [facility] Last Admin: 03/31/17 10:37 Dose: 40 mg Sevelamer Carbonate (Renvela -) 800 mg PO TIDCM [facility] Last Admin: 03/31/17 17:39 Dose: Not Given Sodium Bicarbonate (Sodium Bicarbonate -) 1,300 mg PO BID [facility] Last Admin: 03/31/17 10:37 Dose: 1,300 mg Torsemide (Demadex -) 40 mg PO DAILY [facility] Last Admin: 03/31/17 10:37 Dose: 40 mg Trazodone HCl (Desyrel -) 300 mg PO HS [facility] Last Admin: 03/30/17 21:42 Dose: 300 mg - Objective Vital Signs: Vital Signs Temperature 36.5 C 03/31/17 14:45 Pulse Rate 78 03/31/17 14:45 Respiratory Rate 18 03/31/17 14:45 Blood Pressure 141/91 03/31/17 14:45 O2 Sat by Pulse Oximetry (%) 98 03/31/17 09:00 Constitutional: Yes: Mild Distress (sullen) Edema: LLE: 3+ Peripheral Pulses: Left Doralis Pedis: 1+ Integumentary: Yes: Incision, Laceration Wound/Incision: Yes: Reddened, Unapproximated Neurological: Yes: Loss of Sensation, Numbness, Paresthesia, Pre-Existing Deficit, Tingling Psychiatric: Yes: Other (depressed) Additional Findings/Remarks: Ulceration is fairly well granulated just some islands of necrosis bet there are also some islands of epithelialization presumably since patient has been nonweightbearing. Extensively reviewed the M R I report and the images there of and there is a question of possible osteomyelitis of the fifth metatarsal Phalangeal joint as well as the third and fourth metatarsals of the same foot. Because of this patient's majority and the loss of the left, limb salvage is essential and will perform The osseous biopsy tomorrow to determine if indeed there is osteomyelitis and if so which organisms are responsible. This is essential as left but where the constant theme was infection with streptococcus group B, it is unclear which organisms may be causing The osseous infection on the right foot. What is troubling today is that there is a significant increase of peripheral edema on the right limb which was a common theme on the left before the fulminant abscess formation and subsequent need for a trans tibial resection. Unclear if this is due to patient's end-stage renal disease or is a local phenomenon due to infection. No other overt signs of infection are visible. Performed a mechanical debridement today with sterile saline soaked gauze. The patient was given the risks , Benefits, and alternatives to the procedure. The risks include but are not limited to infection, false negative, wound healing delay. Will proceed to the operating theater tomorrow.Signed informed consent obtained Total time spent on case exceeded 35 minutes Labs: CBC, BMP 03/31/17 06:50 03/31/17 06:50 INR, PTT INR 1.14 (0.82-1.09) 03/18/17 17:50 - ....Imaging MRI: Report Reviewed, Image Reviewed (extensive review)
[2017-03-31] MEDS ORDERED: traZODone HCL 50 MG TABLET (FP) ONE (21:47)
[2017-03-31] MEDS: MIRTAZAPINE 30 MG TABLET (FP) PO SCH (22:08)
[2017-03-31] MEDS: oxyCODONE HCL 5 MG TABLET PO PRN (22:08)
[2017-03-31] MEDS: traZODone HCL 100 MG TABLET (FP) PO SCH (22:09)
[2017-04-01] MEDS: INSULIN SLIDING SCALE (NOVOLOG) 1 VIAL SQ SCH ×4 (06:17→21:30)
[2017-04-01] MEDS: GABAPENTIN 100 MG CAPSULE (FP) PO SCH ×3 (06:17→21:23)
[2017-04-01] MEDS: oxyCODONE HCL 5 MG TABLET PO PRN ×2 (06:17→21:23)
[2017-04-01] MEDS: INSULIN DETEMIR 100 UNITS/ML MDV SQ SCH ×2 (06:17→21:22)
[2017-04-01 07:47] LABS: BASOPHIL 0.5 % (0-2.0); EOSINOPHIL 4.9 % (0-4.5); MCH 28.2 pg (25.7-33.7); MCHC 32.7 g/dl (32.0-35.9); MEAN CELL VOLUME 86.2 fl (80-96); MEAN PLT VOLUME 7.6 fl (7.5-11.1); PLATELET COUNT 483 K/MM3 (134-434); RDW 17.1 % (11.9-15.9)
[2017-04-01] MEDS: SEVELAMER CARBONATE 800 MG TAB (FP) PO SCH ×3 (08:42→18:25)
--- NOTE | 2017-04-01 08:51 | PN ---
Progress Note (short form) - Note Progress Note: POD #5 Alert. Resting comfortably w/o complaint. Wearing his knee immobilizer as directed. Afeb. AVSS Gen: nad LLE: BKA stump with viable flaps. Mary Beth intact. No erythema/drainage. Superficial skin ulcer (secondary to knee immobilizer) just distal to patella. Problem List - Problems (1) Gangrene of left foot Assessment/Plan: Dressing changed on rounds. Xeroform to skin ulcer covered with 4x4 padding. Telfa over stalple line and kerlix. Knee immobilizer reapplied. Patient going to OR today with REGGIE Galvan for right foot bone biopsy. Cont care per medicine Dressing changes as ordered. Code(s): I96 - GANGRENE, NOT ELSEWHERE CLASSIFIED
[2017-04-01] MEDS ORDERED: PT OWN MED DRAWER 7, Y5N ONE (09:18)
[2017-04-01] MEDS: amLODIPine BESYLATE 10 MG TABLET (FP) PO SCH (09:23)
[2017-04-01] MEDS: DULoxetine HCL 30 MG CAPSULE.DR (FP) PO SCH (09:23)
[2017-04-01] MEDS: METOPROLOL TARTRATE 50 MG TABLET (FP) PO SCH ×2 (09:23→21:23)
[2017-04-01] MEDS: HEPARIN NA (PORCINE) 5,000 UNITS/ML 1ML VIAL SQ SCH ×2 (09:23→21:23)
[2017-04-01] MEDS: TORSEMIDE 20 MG TABLET (FP) PO SCH (09:23)
[2017-04-01] MEDS: FOLIC ACID 1 MG TABLET (FP) PO SCH (09:23)
[2017-04-01] MEDS: PANTOPRAZOLE 40 MG TABLET (FP) PO SCH (09:23)
[2017-04-01] MEDS: SODIUM BICARBONATE 650 MG TABLET PO SCH ×2 (09:23→21:23)
[2017-04-01] MEDS: DOXAZOSIN MESYLATE 4 MG TABLET PO SCH (09:24)
[2017-04-01 09:50] LABS: ANION GAP 7 (8-16); CALCIUM 7.2 mg/dL (8.5-10.1); CO2 30 mmol/L (21-32); CREATININE 3.5 mg/dL (0.7-1.3); GLUCOSE,RANDOM 97 mg/dL (74-106); MAGNESIUM 1.8 mg/dL (1.8-2.4)
[2017-04-01] MEDS ORDERED: morphine SULFATE 4 MG/ML VIAL IVPUSH PRN ×2 (09:57→10:03)
[2017-04-01] MEDS: COLLAGENASE CLOSTRIDIUM HIST. 30 GRAMS TUBE TP SCH (10:10)
[2017-04-01] MEDS ORDERED: EPOETIN ALFA 20,000 UNIT/1 ML VIAL IVPUSH ONE (10:30)
--- NOTE | 2017-04-01 12:28 | PN ---
Progress Note (short form) - Note Progress Note: No acute events overnight. Breathing is non-labored. Intake & Output 03/29/17 03/30/17 03/31/17 04/01/17 23:59 23:59 23:59 23:59 Intake Total 850 2200 1350 Output Total 1400 2250 1200 200 Balance -550 -50 150 -200 Weight 220 lb 2 oz 218 lb 9.6 oz 217 lb 6 oz 214 lb 5 oz Last Vital Signs Temp Pulse Resp BP Pulse Ox 98.1 F 78 20 147/85 96 04/01/17 09:27 04/01/17 09:27 04/01/17 09:27 04/01/17 09:27 03/31/17 21:00 Active Medications Albuterol Sulfate (Ventolin 0.083% Nebulizer Soln -) 1 amp NEB Q4H PRN PRN Reason: SHORT OF BREATH/WHEEZING Amlodipine Besylate (Norvasc -) 10 mg PO DAILY [facility] Last Admin: 04/01/17 09:23 Dose: 10 mg Collagenase (Santyl -) 1 applic TP DAILY [facility] Last Admin: 03/31/17 10:37 Dose: 1 applic Doxazosin Mesylate (Cardura -) 4 mg PO DAILY [facility] Last Admin: 04/01/17 09:24 Dose: 4 mg Duloxetine HCl (Cymbalta -) 30 mg PO DAILY [facility] Last Admin: 04/01/17 09:23 Dose: 30 mg Folic Acid (Folic Acid -) 1 mg PO DAILY [facility] Last Admin: 04/01/17 09:23 Dose: 1 mg Gabapentin (Neurontin -) 100 mg PO TID [facility] Last Admin: 04/01/17 06:17 Dose: 100 mg Heparin Sodium (Porcine) (Heparin -) 5,000 unit SQ BID [facility] Last Admin: 04/01/17 09:23 Dose: 5,000 unit Hydromorphone HCl (Dilaudid Injection -) 1 mg IVPB Q3H PRN PRN Reason: PAIN Insulin Aspart (Novolog Vial Sliding Scale -) 1 vial SQ ACHS [facility] PRN Reason: Protocol Last Admin: 04/01/17 12:11 Dose: Not Given Insulin Detemir (Levemir Vial) 15 units SQ BID@0700,2200 [facility] Last Admin: 04/01/17 06:17 Dose: Not Given Metoprolol Tartrate (Lopressor -) 50 mg PO BID [facility] Last Admin: 04/01/17 09:23 Dose: 50 mg Mirtazapine (Remeron -) 30 mg PO HS [facility] Last Admin: 03/31/17 22:08 Dose: 30 mg Morphine Sulfate (Morphine Sulfate) 2 mg IVPUSH Q4H PRN Last Admin: 04/01/17 10:09 Dose: 2 mg Oxycodone HCl (Roxicodone -) 10 mg PO Q6H PRN PRN Reason: PAIN Last Admin: 04/01/17 06:17 Dose: 10 mg Pantoprazole Sodium (Protonix -) 40 mg PO DAILY [facility] Last Admin: 04/01/17 09:23 Dose: 40 mg Sevelamer Carbonate (Renvela -) 800 mg PO TIDCM [facility] Last Admin: 04/01/17 12:12 Dose: Not Given Sodium Bicarbonate (Sodium Bicarbonate -) 1,300 mg PO BID [facility] Last Admin: 04/01/17 09:23 Dose: 1,300 mg Torsemide (Demadex -) 40 mg PO DAILY [facility] Last Admin: 04/01/17 09:23 Dose: 40 mg Trazodone HCl (Desyrel -) 300 mg PO HS [facility] Last Admin: 03/31/17 22:09 Dose: 300 mg Gen: NAD at rest Heart: RRR Lung: decreased breath sounds at the bases Abd: soft, nontender Ext: no edema, dressings intact Laboratory Results - last 24 hr 03/26/17 03/30/17 03/31/17 11:05 16:36 12:14 WBC RBC Hgb Hct MCV MCH MCHC RDW Plt Count MPV Neutrophils % Lymphocytes % Monocytes % Eosinophils % Basophils % Sodium Potassium Chloride Carbon Dioxide Anion Gap BUN Creatinine POC Glucometer 365 85 Random Glucose Calcium Magnesium Blood Type B POSITIVE Antibody Screen Negative Crossmatch See Detail Crossmatch IS Only See Detail 03/31/17 03/31/17 04/01/17 17:15 21:44 06:10 WBC RBC Hgb Hct MCV MCH MCHC RDW Plt Count MPV Neutrophils % Lymphocytes % Monocytes % Eosinophils % Basophils % Sodium Potassium Chloride Carbon Dioxide Anion Gap BUN Creatinine POC Glucometer 89 94 56 Random Glucose Calcium Magnesium Blood Type Antibody Screen Crossmatch Crossmatch IS Only 04/01/17 04/01/17 04/01/17 07:15 07:15 09:54 WBC 17.0 H RBC 2.68 L Hgb 7.5 L Hct 23.1 L MCV 86.2 MCH 28.2 MCHC 32.7 RDW 17.1 H Plt Count 483 H MPV 7.6 Neutrophils % 84.0 H Lymphocytes % 6.4 L D Monocytes % 4.2 Eosinophils % 4.9 H Basophils % 0.5 Sodium 142 Potassium 4.0 Chloride 105 Carbon Dioxide 30 Anion Gap 7 L BUN 44 H Creatinine 3.5 H POC Glucometer Random Glucose 97 D Calcium 7.2 L Magnesium 1.8 Blood Type B POSITIVE Antibody Screen Negative Crossmatch See Detail Crossmatch IS Only ASSESSMENT AND PLAN: POD #1 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
--- NOTE | 2017-04-01 15:16 | PATH ---
Surgical Pathology Report Patient Name: MARIAJOSE MALAVE [facility]. Rec. #: [id number] /Age/Gender: 1955 (Age: 61) / M Account: [id number] Location: [address] [place] [address]/[facility] Taken: 03/27/2017 Received: 03/28/2017 Reported: 04/01/2017 Physicians: Al Boyce M.D. Specimen(s) Received EXTREMITY AMPUTATION Clinical History Left leg gangrene Final Diagnosis LEFT LEG, BELOW KNEE AMPUTATION: BELOW KNEE AMPUTATION SPECIMEN STATUS POST PRIOR FOOT AMPUTATION ([id number]), WITH GANGRENOUS NECROSIS AND ACUTE OSTEOMYELITIS AT PRIOR AMPUTATION SITE. SKIN AND SOFT TISSUE MARGIN APPEARS VIABLE. BONE MARROW MARGIN FREE OF OSTEOMYELITIS. BLOOD VESSELS SHOW CALCIFIC ATHEROSCLEROSIS. Electronically Signed Raymond Welch M.D. Gross Description Received fresh labeled "left leg below the knee," is a 20 cm in length below the knee stump amputation. The specimen displays exposed bone and necrotic soft tissue at the previous amputation site. The remaining epidermal surface is unremarkable. Sectioning of the vasculature reveals focal, segmental, mild atherosclerosis. Supervisor Stitching Department sections are submitted in 6 cassettes as follows: 1-sections from exposed soft tissue at previous amputation site; 2-bone marrow from previous amputation site, following decalcification; 3-skin and soft tissue margin of resection; 4-bone marrow from margin of resection, following decalcification; 5-anterior tibial artery; 6-posterior tibial artery. 03/28/201703/28/2017
--- NOTE | 2017-04-01 15:29 | PN ---
Progress Note, Physician History of Present Illness: Pt states he feels ok. Denies fever/chills. Scheduled for Rt foot bone biopsy today. Diarrhea has resolved. Has no abd cramping. - Current Medication List Current Medications: Active Medications Albuterol Sulfate (Ventolin 0.083% Nebulizer Soln -) 1 amp NEB Q4H PRN PRN Reason: SHORT OF BREATH/WHEEZING Amlodipine Besylate (Norvasc -) 10 mg PO DAILY [facility] Last Admin: 04/01/17 09:23 Dose: 10 mg Collagenase (Santyl -) 1 applic TP DAILY [facility] Last Admin: 03/31/17 10:37 Dose: 1 applic Doxazosin Mesylate (Cardura -) 4 mg PO DAILY [facility] Last Admin: 04/01/17 09:24 Dose: 4 mg Duloxetine HCl (Cymbalta -) 30 mg PO DAILY [facility] Last Admin: 04/01/17 09:23 Dose: 30 mg Folic Acid (Folic Acid -) 1 mg PO DAILY [facility] Last Admin: 04/01/17 09:23 Dose: 1 mg Gabapentin (Neurontin -) 100 mg PO TID [facility] Last Admin: 04/01/17 14:18 Dose: Not Given Heparin Sodium (Porcine) (Heparin -) 5,000 unit SQ BID [facility] Last Admin: 04/01/17 09:23 Dose: 5,000 unit Hydromorphone HCl (Dilaudid Injection -) 1 mg IVPB Q3H PRN PRN Reason: PAIN Insulin Aspart (Novolog Vial Sliding Scale -) 1 vial SQ ACHS [facility] PRN Reason: Protocol Last Admin: 04/01/17 12:11 Dose: Not Given Insulin Detemir (Levemir Vial) 15 units SQ BID@0700,2200 [facility] Last Admin: 04/01/17 06:17 Dose: Not Given Metoprolol Tartrate (Lopressor -) 50 mg PO BID [facility] Last Admin: 04/01/17 09:23 Dose: 50 mg Mirtazapine (Remeron -) 30 mg PO HS [facility] Last Admin: 03/31/17 22:08 Dose: 30 mg Morphine Sulfate (Morphine Sulfate) 2 mg IVPUSH Q4H PRN Last Admin: 04/01/17 10:09 Dose: 2 mg Oxycodone HCl (Roxicodone -) 10 mg PO Q6H PRN PRN Reason: PAIN Last Admin: 04/01/17 06:17 Dose: 10 mg Pantoprazole Sodium (Protonix -) 40 mg PO DAILY [facility] Last Admin: 04/01/17 09:23 Dose: 40 mg Sevelamer Carbonate (Renvela -) 800 mg PO TIDCM [facility] Last Admin: 04/01/17 12:12 Dose: Not Given Sodium Bicarbonate (Sodium Bicarbonate -) 1,300 mg PO BID [facility] Last Admin: 04/01/17 09:23 Dose: 1,300 mg Torsemide (Demadex -) 40 mg PO DAILY [facility] Last Admin: 04/01/17 09:23 Dose: 40 mg Trazodone HCl (Desyrel -) 300 mg PO HS [facility] Last Admin: 03/31/17 22:09 Dose: 300 mg - Objective Vital Signs: Vital Signs Temperature 98.2 F 04/01/17 15:05 Pulse Rate 74 04/01/17 15:05 Respiratory Rate 20 04/01/17 15:05 Blood Pressure 149/86 04/01/17 15:05 O2 Sat by Pulse Oximetry (%) 96 03/31/17 21:00 Constitutional: Yes: No Distress, Calm Neck: Yes: Supple Cardiovascular: Yes: Regular Rate and Rhythm Respiratory: Yes: Regular Gastrointestinal: Yes: Normal Bowel Sounds, Soft Extremities: Yes: Amputation (Lt BKA, Rt foot edema no tenderness/dressing intact) Psychiatric: Yes: Alert Labs: CBC, BMP 04/01/17 07:15 04/01/17 07:15 INR, PTT INR 1.14 (0.82-1.09) 03/18/17 17:50 Problem List - Problems (1) ARF (acute renal failure) Code(s): N17.9 - ACUTE KIDNEY FAILURE, UNSPECIFIED Qualifiers: Acute renal failure type: unspecified Qualified Code(s): N17.9 - Acute kidney failure, unspecified (2) Gangrene of left foot Code(s): I96 - GANGRENE, NOT ELSEWHERE CLASSIFIED (3) Syncope Code(s): R55 - SYNCOPE AND COLLAPSE Qualifiers: Syncope type: unspecified Qualified Code(s): R55 - Syncope and collapse (4) COPD with emphysema Code(s): J43.9 - EMPHYSEMA, UNSPECIFIED (5) Chronic renal insufficiency, stage IV (severe) Code(s): N18.4 - CHRONIC KIDNEY DISEASE, STAGE 4 (SEVERE) (6) Diabetic neuropathy Code(s): E11.40 - TYPE 2 DIABETES MELLITUS WITH DIABETIC NEUROPATHY, UNSP Qualifiers: 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 type: type 2 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 complication detail: diabetic polyneuropathy Qualified Code(s): E11.42 - Type 2 diabetes mellitus with diabetic polyneuropathy (7) Foot infection Code(s): L08.9 - LOCAL INFECTION OF THE SKIN AND SUBCUTANEOUS TISSUE, UNSP (8) Neuropathy Code(s): G62.9 - POLYNEUROPATHY, UNSPECIFIED (9) S/P amputation Code(s): Z89.9 - ACQUIRED ABSENCE OF LIMB, UNSPECIFIED (10) Type 2 diabetes mellitus with foot ulcer Code(s): E11.621 - TYPE 2 DIABETES MELLITUS WITH FOOT ULCER; L97.509 - NON- PRESSURE CHRONIC ULCER OTH PRT UNSP FOOT W UNSP SEVERITY (11) Osteomyelitis of right foot Code(s): M86.9 - OSTEOMYELITIS, UNSPECIFIED Assessment/Plan Lt LE gangrene/infection s/p BKA s/p Streptococcal Bacteremia FROYLAN/CKD now ESRD on HD Persistent Leukocytosis - decreased from yesterday but still elevated Rt foot OM Diarrhea - CDT (-) - resolved - continue monitor off antibiotics - awaiting bone biopsy/ please obtain sample for culture - continue monitor cbc - cont wound care pt clinically stable
--- NOTE | 2017-04-01 16:26 | PN ---
Progress Note (short form) - Note Progress Note: Renal Follow up for FROYLAN on CKD Pt seen and examined at the bedside earlier this morning pt reports not being able to sleep well last night b/c of pain no sob, chest pain, abd pain, N/V/D pt does not want to go to dialysis today, says he feels to tired Vital Signs Temperature 98.2 F 04/01/17 15:05 Pulse Rate 74 04/01/17 15:05 Respiratory Rate 20 04/01/17 15:05 Blood Pressure 149/86 04/01/17 15:05 O2 Sat by Pulse Oximetry (%) 96 04/01/17 09:00 Intake & Output 03/29/17 03/30/17 03/31/17 04/01/17 23:59 23:59 23:59 23:59 Intake Total 850 2200 1350 Output Total 1400 2250 1200 1100 Balance -550 -50 150 -1100 Weight 99.847 kg 99.155 kg 98.6 kg 97.211 kg NAD awake and alert RRR Dec Bs at lung bases, no rales soft NT/ND CBC, BMP 04/01/17 07:15 04/01/17 07:15 Current Medications Albuterol Sulfate (Ventolin 0.083% Nebulizer Soln -) 1 amp NEB Q4H PRN PRN Reason: SHORT OF BREATH/WHEEZING Amlodipine Besylate (Norvasc -) 10 mg PO DAILY [facility] Last Admin: 04/01/17 09:23 Dose: 10 mg Collagenase (Santyl -) 1 applic TP DAILY [facility] Last Admin: 03/31/17 10:37 Dose: 1 applic Doxazosin Mesylate (Cardura -) 4 mg PO DAILY [facility] Last Admin: 04/01/17 09:24 Dose: 4 mg Duloxetine HCl (Cymbalta -) 30 mg PO DAILY [facility] Last Admin: 04/01/17 09:23 Dose: 30 mg Folic Acid (Folic Acid -) 1 mg PO DAILY [facility] Last Admin: 04/01/17 09:23 Dose: 1 mg Gabapentin (Neurontin -) 100 mg PO TID [facility] Last Admin: 04/01/17 14:18 Dose: Not Given Heparin Sodium (Porcine) (Heparin -) 5,000 unit SQ BID [facility] Last Admin: 04/01/17 09:23 Dose: 5,000 unit Hydromorphone HCl (Dilaudid Injection -) 1 mg IVPB Q3H PRN PRN Reason: PAIN Insulin Aspart (Novolog Vial Sliding Scale -) 1 vial SQ ACHS [facility] PRN Reason: Protocol Last Admin: 04/01/17 12:11 Dose: Not Given Insulin Detemir (Levemir Vial) 15 units SQ BID@0700,2200 [facility] Last Admin: 04/01/17 06:17 Dose: Not Given Metoprolol Tartrate (Lopressor -) 50 mg PO BID [facility] Last Admin: 04/01/17 09:23 Dose: 50 mg Mirtazapine (Remeron -) 30 mg PO HS [facility] Last Admin: 03/31/17 22:08 Dose: 30 mg Morphine Sulfate (Morphine Sulfate) 2 mg IVPUSH Q4H PRN Last Admin: 04/01/17 10:09 Dose: 2 mg Oxycodone HCl (Roxicodone -) 10 mg PO Q6H PRN PRN Reason: PAIN Last Admin: 04/01/17 06:17 Dose: 10 mg Pantoprazole Sodium (Protonix -) 40 mg PO DAILY [facility] Last Admin: 04/01/17 09:23 Dose: 40 mg Sevelamer Carbonate (Renvela -) 800 mg PO TIDCM [facility] Last Admin: 04/01/17 12:12 Dose: Not Given Sodium Bicarbonate (Sodium Bicarbonate -) 1,300 mg PO BID [facility] Last Admin: 04/01/17 09:23 Dose: 1,300 mg Torsemide (Demadex -) 40 mg PO DAILY [facility] Last Admin: 04/01/17 09:23 Dose: 40 mg Trazodone HCl (Desyrel -) 300 mg PO HS [facility] Last Admin: 03/31/17 22:09 Dose: 300 mg 61 year old gentleman with PMhx of CKD stage 4 (baseline Cr 2.8), Hypertension , DM, PVD, Depression who presented with syncope and found to have acute on chronic renal failure with hyperkalemia and hyponatremia. #Acute Renal Failure now with ESRD on HD will defer dialysis to tomorrow as pt refusing treatment no hyperkalemia, acidosis or volume overload to warrant emergent dialysis today Dose all meds for intermittent HD #Leukocytosis/Sepsis/infected LE wound holding antibiotics pending bone biopsy ID following #Acute on Chronic anemia will transfuse PRBC with HD if Hgb less then 8 Miguel Inderjit DO Problem List - Problems (1) Hyponatremia Code(s): E87.1 - HYPO-OSMOLALITY AND HYPONATREMIA (2) ARF (acute renal failure) Code(s): N17.9 - ACUTE KIDNEY FAILURE, UNSPECIFIED Qualifiers: Acute renal failure type: unspecified Qualified Code(s): N17.9 - Acute kidney failure, unspecified (3) Hyperkalemia Code(s): E87.5 - HYPERKALEMIA (4) Syncope Code(s): R55 - SYNCOPE AND COLLAPSE Qualifiers: Syncope type: unspecified Qualified Code(s): R55 - Syncope and collapse (5) FROYLAN (acute kidney injury) Code(s): N17.9 - ACUTE KIDNEY FAILURE, UNSPECIFIED
[2017-04-01] MEDS ORDERED: LIDOCAINE 1%/EPI 1:100000 (20 ML MULTI DOSE VIAL) ONE (17:51)
--- NOTE | 2017-04-01 18:23 | OP ---
Operative Note - Note: Operative Date: 04/01/17 Pre-Operative Diagnosis: Possible osteomyelitis of the right foot Operation: Open osseous biopsy of 3 separate bones Post-Operative Diagnosis: Other (Pending) Anesthesia: MAC Specimens Removed: 3 bone samples- 5th metatarsal, 5th proximal phalanx and 4th metatarsal Estimated Blood Loss (mls): 5 Operative Report Dictated: Yes
[2017-04-01] MEDS ORDERED: HYDROmorphone HCL CARPU-JECT 1 MG/1 ML DISP.SYRIN IVPB PRN (18:31)
[2017-04-01] MEDS ORDERED: ONDANSETRON 4 MG/2 ML VIAL IVPUSH PRN (18:32)
--- NOTE | 2017-04-01 20:19 | PN ---
Progress Note, Physician History of Present Illness: doing well - Current Medication List Current Medications: Active Medications Albuterol Sulfate (Ventolin 0.083% Nebulizer Soln -) 1 amp NEB Q4H PRN PRN Reason: SHORT OF BREATH/WHEEZING Amlodipine Besylate (Norvasc -) 10 mg PO DAILY [facility] Collagenase (Santyl -) 1 applic TP DAILY [facility] Doxazosin Mesylate (Cardura -) 4 mg PO DAILY [facility] Duloxetine HCl (Cymbalta -) 30 mg PO DAILY [facility] Fentanyl (Sublimaze Injection -) 25 mcg IVPUSH [id number] PRN PRN Reason: PAIN Folic Acid (Folic Acid -) 1 mg PO DAILY [facility] Gabapentin (Neurontin -) 100 mg PO TID [facility] Heparin Sodium (Porcine) (Heparin -) 5,000 unit SQ BID [facility] Hydromorphone HCl (Dilaudid Injection -) 1 mg IVPB Q3H PRN PRN Reason: PAIN Insulin Aspart (Novolog Vial Sliding Scale -) 1 vial SQ ACHS [facility] PRN Reason: Protocol Insulin Detemir (Levemir Vial) 15 units SQ BID@0700,2200 [facility] Metoprolol Tartrate (Lopressor -) 50 mg PO BID [facility] Mirtazapine (Remeron -) 30 mg PO HS [facility] Morphine Sulfate (Morphine Sulfate) 2 mg IVPUSH Q4H PRN Ondansetron HCl (Zofran Injection) 4 mg IVPUSH Q6H PRN PRN Reason: NAUSEA AND/OR VOMITING Oxycodone HCl (Roxicodone -) 10 mg PO Q6H PRN PRN Reason: PAIN Pantoprazole Sodium (Protonix -) 40 mg PO DAILY [facility] Sevelamer Carbonate (Renvela -) 800 mg PO TIDCM [facility] Sodium Bicarbonate (Sodium Bicarbonate -) 1,300 mg PO BID [facility] Torsemide (Demadex -) 40 mg PO DAILY [facility] Trazodone HCl (Desyrel -) 300 mg PO HS [facility] - Objective Vital Signs: Vital Signs Temperature 98.1 F 04/01/17 19:27 Pulse Rate 72 04/01/17 19:27 Respiratory Rate 20 04/01/17 19:27 Blood Pressure 141/72 04/01/17 19:27 O2 Sat by Pulse Oximetry (%) 95 04/01/17 18:45 Constitutional: Yes: No Distress HENT: Yes: Atraumatic Neck: Yes: Supple Cardiovascular: Yes: Regular Rate and Rhythm Respiratory: Yes: CTA Bilaterally Gastrointestinal: Yes: Normal Bowel Sounds Extremities: Yes: WNL Neurological: Yes: Alert, Oriented Labs: CBC, BMP 04/01/17 07:15 04/01/17 07:15 INR, PTT INR 1.14 (0.82-1.09) 03/18/17 17:50 Problem List - Problems (1) ARF (acute renal failure) Assessment/Plan: on hd dr mendoza Code(s): N17.9 - ACUTE KIDNEY FAILURE, UNSPECIFIED Qualifiers: Acute renal failure type: unspecified Qualified Code(s): N17.9 - Acute kidney failure, unspecified (2) Hyperkalemia Assessment/Plan: on hd..will improve Code(s): E87.5 - HYPERKALEMIA (3) Hyponatremia Assessment/Plan: monitor ..on hd Code(s): E87.1 - HYPO-OSMOLALITY AND HYPONATREMIA (4) Syncope Assessment/Plan: resolved Code(s): R55 - SYNCOPE AND COLLAPSE Qualifiers: Syncope type: unspecified Qualified Code(s): R55 - Syncope and collapse (5) 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 Assessment/Plan: [facility] [place] insulin Code(s): E11.9 - TYPE 2 DIABETES MELLITUS WITHOUT COMPLICATIONS Qualifiers: 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 type: type 2 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 complication status: without complication 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 snf insulin use: without snf use Qualified Code(s): E11.9 - Type 2 diabetes mellitus without complications (6) GERD (gastroesophageal reflux disease) Code(s): K21.9 - GASTRO-ESOPHAGEAL REFLUX DISEASE WITHOUT ESOPHAGITIS (7) HTN (hypertension) Assessment/Plan: on meds stable Code(s): I10 - ESSENTIAL (PRIMARY) HYPERTENSION Qualifiers: Hypertension type: essential hypertension Qualified Code(s): I10 - Essential (primary) hypertension (8) Type 2 diabetes mellitus with foot ulcer Assessment/Plan: s/p bka today dr marin s/p debridement r foot Code(s): E11.621 - TYPE 2 DIABETES MELLITUS WITH FOOT ULCER; L97.509 - NON- PRESSURE CHRONIC ULCER OTH PRT UNSP FOOT W UNSP SEVERITY
[2017-04-01] MEDS ORDERED: traZODone HCL 50 MG TABLET (FP) ONE (21:18)
[2017-04-01] MEDS: traZODone HCL 100 MG TABLET (FP) PO SCH (21:24)
[2017-04-01] MEDS: MIRTAZAPINE 30 MG TABLET (FP) PO SCH (21:24)
[2017-04-01] MEDS ORDERED: INSULIN (NOVOLOG) ASPART 100 UNITS/ML 10ML VIAL ONE (21:29)
[2017-04-01] MEDS ORDERED: INSULIN DETEMIR 100 UNITS/ML MDV SQ ONE (22:31)
[2017-04-01] MEDS: morphine SULFATE 4 MG/ML VIAL IVPUSH PRN (22:36)
[2017-04-02] MEDS: INSULIN DETEMIR 100 UNITS/ML MDV SQ SCH ×2 (06:18→21:24)
[2017-04-02] MEDS ORDERED: INSULIN (NOVOLOG) ASPART 100 UNITS/ML 10ML VIAL ONE (06:19)
[2017-04-02] MEDS: INSULIN SLIDING SCALE (NOVOLOG) 1 VIAL SQ SCH ×4 (06:19→21:23)
[2017-04-02] MEDS: morphine SULFATE 4 MG/ML VIAL IVPUSH PRN ×2 (06:20→12:25)
[2017-04-02] MEDS: GABAPENTIN 100 MG CAPSULE (FP) PO SCH ×3 (06:20→21:22)
--- NOTE | 2017-04-02 07:17 | OP ---
DATE OF OPERATION: 04/01/2017 PROCEDURE: Open bone biopsy of 3 separate osseous structures of the left foot. PREOPERATIVE DIAGNOSIS: Possible osteomyelitis. POSTOPERATIVE DIAGNOSIS: Possible osteomyelitis and pending. ANESTHESIA: Sedated with local infiltration with monitored anesthetic care. SURGEON: Dr. Aroldo Galvan CLINICAL INDICATIONS OF PROCEDURE: This patient, who has had a long history of diabetic foot ulcerations, osteomyelitis, and abscesses, had a positive magnetic resonance imaging of the 5th metatarsophalangeal joint (5th metatarsal head and proximal phalanx) corresponding to a plantar neurotrophic ulcer. In addition, patient had hyperemic of both the 4th and the 3rd metatarsophalangeal joints where osteomyelitis cannot be excluded. The procedure is to determine if there is indeed osteomyelitis, and if so, what are the causes of organisms. NARRATIVE: After prepping the patient in the usual manner, an incision was made adjacent to the ulceration, but through skin, to the area of the 5th metatarsal head. Dissection was carried out straight to bone, and with the use of a Jamshidi type needle, the sample of the 5th metatarsal head corresponding to the plantar neurotrophic ulceration was taken. Likewise, and incision was made near the proximal phalanx through intact skin, and the same procedure was performed. Finally, on the dorsal surface of the 4th metatarsal head, samples were taken from the 4th metatarsal. Samples from the 5th metatarsal and 5th proximal phalanx was placed in one culture tube and sent to Pathology. In a separate specimen, the 4th metatarsal bone sample was sent to Pathology and Microbiology. The wounds were then flushed, and the skin was closed in the usual manner. Dr. Aroldo Galvan RT/[id number] [facility]
[2017-04-02] MEDS: SEVELAMER CARBONATE 800 MG TAB (FP) PO SCH ×3 (08:40→17:25)
[2017-04-02] MEDS ORDERED: EPOETIN ALFA 20,000 UNIT/1 ML VIAL IVPUSH ONE (08:45)
[2017-04-02 08:52] LABS: MCH 27.6 pg (25.7-33.7); MCHC 31.6 g/dl (32.0-35.9); MEAN CELL VOLUME 87.3 fl (80-96); MEAN PLT VOLUME 7.6 fl (7.5-11.1); PLATELET COUNT 516 K/MM3 (134-434); WHITE BLOOD COUNT 13.6 K/mm3 (4.0-10.0)
[2017-04-02 09:17] LABS: ANION GAP 10 (8-16); CALCIUM 7.5 mg/dL (8.5-10.1); CO2 30 mmol/L (21-32); CREATININE 3.8 mg/dL (0.7-1.3); GLUCOSE,RANDOM 201 mg/dL (74-106)
[2017-04-02] MEDS ORDERED: PT OWN MED DRAWER 7, Y5N ONE (12:19)
[2017-04-02] MEDS: DOXAZOSIN MESYLATE 4 MG TABLET PO SCH (12:23)
[2017-04-02] MEDS: TORSEMIDE 20 MG TABLET (FP) PO SCH (12:23)
[2017-04-02] MEDS: PANTOPRAZOLE 40 MG TABLET (FP) PO SCH (12:23)
[2017-04-02] MEDS: FOLIC ACID 1 MG TABLET (FP) PO SCH (12:24)
[2017-04-02] MEDS: SODIUM BICARBONATE 650 MG TABLET PO SCH ×2 (12:24→21:23)
[2017-04-02] MEDS: amLODIPine BESYLATE 10 MG TABLET (FP) PO SCH (12:24)
[2017-04-02] MEDS: DULoxetine HCL 30 MG CAPSULE.DR (FP) PO SCH (12:24)
[2017-04-02] MEDS: METOPROLOL TARTRATE 50 MG TABLET (FP) PO SCH ×2 (12:24→21:19)
[2017-04-02] MEDS: HEPARIN NA (PORCINE) 5,000 UNITS/ML 1ML VIAL SQ SCH ×2 (12:25→22:00)
[2017-04-02] MEDS: COLLAGENASE CLOSTRIDIUM HIST. 30 GRAMS TUBE TP SCH (14:24)
--- NOTE | 2017-04-02 14:55 | PN ---
Progress Note (short form) - Note Progress Note: Renal Follow up for FROYLAN on CKD Pt seen and examined during dialysis BP stable, goal UF is 2L catheter with good flow, pressures WNL pt has some pain over his left knee no fever, chills s/p bone biopsy yesterday Vital Signs Temperature 98.7 F 04/02/17 14:00 Pulse Rate 80 04/02/17 14:00 Respiratory Rate 21 04/02/17 14:00 Blood Pressure 144/76 04/02/17 14:00 O2 Sat by Pulse Oximetry (%) 95 04/01/17 20:51 Intake & Output 03/30/17 03/31/17 04/01/17 04/02/17 23:59 23:59 23:59 23:59 Intake Total 2200 1350 600 650 Output Total 2250 1200 2000 400 Balance -50 150 -1400 250 Weight 99.155 kg 98.6 kg 97.211 kg 98.089 kg NAD awake and alert RRR Dec Bs at lung bases, no rales soft NT/ND CBC, BMP 04/02/17 08:00 04/02/17 08:00 Current Medications Albuterol Sulfate (Ventolin 0.083% Nebulizer Soln -) 1 amp NEB Q4H PRN PRN Reason: SHORT OF BREATH/WHEEZING Amlodipine Besylate (Norvasc -) 10 mg PO DAILY [facility] Last Admin: 04/02/17 12:24 Dose: 10 mg Collagenase (Santyl -) 1 applic TP DAILY [facility] Last Admin: 04/02/17 14:24 Dose: 1 applic Doxazosin Mesylate (Cardura -) 4 mg PO DAILY [facility] Last Admin: 04/02/17 12:23 Dose: 4 mg Duloxetine HCl (Cymbalta -) 30 mg PO DAILY [facility] Last Admin: 04/02/17 12:24 Dose: 30 mg Fentanyl (Sublimaze Injection -) 25 mcg IVPUSH [id number] PRN PRN Reason: PAIN Folic Acid (Folic Acid -) 1 mg PO DAILY [facility] Last Admin: 04/02/17 12:24 Dose: 1 mg Gabapentin (Neurontin -) 100 mg PO TID [facility] Last Admin: 04/02/17 14:24 Dose: 100 mg Heparin Sodium (Porcine) (Heparin -) 5,000 unit SQ BID [facility] Last Admin: 04/02/17 12:25 Dose: 5,000 unit Hydromorphone HCl (Dilaudid Injection -) 1 mg IVPB Q3H PRN PRN Reason: PAIN Insulin Aspart (Novolog Vial Sliding Scale -) 1 vial SQ ACHS [facility] PRN Reason: Protocol Last Admin: 04/02/17 12:24 Dose: Not Given Insulin Detemir (Levemir Vial) 15 units SQ BID@0700,2200 [facility] Last Admin: 04/02/17 06:18 Dose: 15 units Metoprolol Tartrate (Lopressor -) 50 mg PO BID [facility] Last Admin: 04/02/17 12:24 Dose: 50 mg Mirtazapine (Remeron -) 30 mg PO HS [facility] Last Admin: 04/01/17 21:24 Dose: 30 mg Morphine Sulfate (Morphine Sulfate) 2 mg IVPUSH Q4H PRN Last Admin: 04/02/17 12:25 Dose: 2 mg Ondansetron HCl (Zofran Injection) 4 mg IVPUSH Q6H PRN PRN Reason: NAUSEA AND/OR VOMITING Oxycodone HCl (Roxicodone -) 10 mg PO Q6H PRN PRN Reason: PAIN Last Admin: 04/01/17 21:23 Dose: 10 mg Pantoprazole Sodium (Protonix -) 40 mg PO DAILY [facility] Last Admin: 04/02/17 12:23 Dose: 40 mg Sevelamer Carbonate (Renvela -) 800 mg PO TIDCM [facility] Last Admin: 04/02/17 12:25 Dose: 800 mg Sodium Bicarbonate (Sodium Bicarbonate -) 1,300 mg PO BID [facility] Last Admin: 04/02/17 12:24 Dose: 1,300 mg Torsemide (Demadex -) 40 mg PO DAILY [facility] Last Admin: 04/02/17 12:23 Dose: 40 mg Trazodone HCl (Desyrel -) 300 mg PO HS [facility] Last Admin: 04/01/17 21:24 Dose: 300 mg 61 year old gentleman with PMhx of CKD stage 4 (baseline Cr 2.8), Hypertension , DM, PVD, Depression who presented with syncope and found to have acute on chronic renal failure with hyperkalemia and hyponatremia. #Acute Renal Failure now with ESRD on HD tolerating dialysis well today UF of 2L as tolerated continue 3x weekly dialysis #Leukocytosis/Sepsis/infected LE wound holding antibiotics pending bone biopsy result ID following #Acute on Chronic anemia s/p 1 unit prbc transfusion with dialysis today Miguel Jansen Problem List - Problems (1) Hyponatremia Code(s): E87.1 - HYPO-OSMOLALITY AND HYPONATREMIA (2) ARF (acute renal failure) Code(s): N17.9 - ACUTE KIDNEY FAILURE, UNSPECIFIED Qualifiers: Acute renal failure type: unspecified Qualified Code(s): N17.9 - Acute kidney failure, unspecified (3) Hyperkalemia Code(s): E87.5 - HYPERKALEMIA (4) Syncope Code(s): R55 - SYNCOPE AND COLLAPSE Qualifiers: Syncope type: unspecified Qualified Code(s): R55 - Syncope and collapse (5) FROYLAN (acute kidney injury) Code(s): N17.9 - ACUTE KIDNEY FAILURE, UNSPECIFIED
--- NOTE | 2017-04-02 15:30 | PN ---
Progress Note (short form) - Note Progress Note: No acute events overnight. Breathing is non-labored. Some knee discomfort. Intake & Output 03/30/17 03/31/17 04/01/17 04/02/17 23:59 23:59 23:59 23:59 Intake Total 2200 1350 600 650 Output Total 2250 1200 2000 400 Balance -50 150 -1400 250 Weight 218 lb 9.6 oz 217 lb 6 oz 214 lb 5 oz 216 lb 4 oz Last Vital Signs Temp Pulse Resp BP Pulse Ox 98.7 F 80 21 144/76 95 04/02/17 14:00 04/02/17 14:00 04/02/17 14:00 04/02/17 14:00 04/01/17 20:51 Active Medications Albuterol Sulfate (Ventolin 0.083% Nebulizer Soln -) 1 amp NEB Q4H PRN PRN Reason: SHORT OF BREATH/WHEEZING Amlodipine Besylate (Norvasc -) 10 mg PO DAILY [facility] Last Admin: 04/02/17 12:24 Dose: 10 mg Collagenase (Santyl -) 1 applic TP DAILY [facility] Last Admin: 04/02/17 14:24 Dose: 1 applic Doxazosin Mesylate (Cardura -) 4 mg PO DAILY [facility] Last Admin: 04/02/17 12:23 Dose: 4 mg Duloxetine HCl (Cymbalta -) 30 mg PO DAILY [facility] Last Admin: 04/02/17 12:24 Dose: 30 mg Fentanyl (Sublimaze Injection -) 25 mcg IVPUSH [id number] PRN PRN Reason: PAIN Folic Acid (Folic Acid -) 1 mg PO DAILY [facility] Last Admin: 04/02/17 12:24 Dose: 1 mg Gabapentin (Neurontin -) 100 mg PO TID [facility] Last Admin: 04/02/17 14:24 Dose: 100 mg Heparin Sodium (Porcine) (Heparin -) 5,000 unit SQ BID [facility] Last Admin: 04/02/17 12:25 Dose: 5,000 unit Hydromorphone HCl (Dilaudid Injection -) 1 mg IVPB Q3H PRN PRN Reason: PAIN Insulin Aspart (Novolog Vial Sliding Scale -) 1 vial SQ ACHS [facility] PRN Reason: Protocol Last Admin: 04/02/17 12:24 Dose: Not Given Insulin Detemir (Levemir Vial) 15 units SQ BID@0700,2200 [facility] Last Admin: 04/02/17 06:18 Dose: 15 units Metoprolol Tartrate (Lopressor -) 50 mg PO BID [facility] Last Admin: 04/02/17 12:24 Dose: 50 mg Mirtazapine (Remeron -) 30 mg PO HS [facility] Last Admin: 04/01/17 21:24 Dose: 30 mg Morphine Sulfate (Morphine Sulfate) 2 mg IVPUSH Q4H PRN Last Admin: 04/02/17 12:25 Dose: 2 mg Ondansetron HCl (Zofran Injection) 4 mg IVPUSH Q6H PRN PRN Reason: NAUSEA AND/OR VOMITING Oxycodone HCl (Roxicodone -) 10 mg PO Q6H PRN PRN Reason: PAIN Last Admin: 04/01/17 21:23 Dose: 10 mg Pantoprazole Sodium (Protonix -) 40 mg PO DAILY [facility] Last Admin: 04/02/17 12:23 Dose: 40 mg Sevelamer Carbonate (Renvela -) 800 mg PO TIDCM [facility] Last Admin: 04/02/17 12:25 Dose: 800 mg Sodium Bicarbonate (Sodium Bicarbonate -) 1,300 mg PO BID [facility] Last Admin: 04/02/17 12:24 Dose: 1,300 mg Torsemide (Demadex -) 40 mg PO DAILY [facility] Last Admin: 04/02/17 12:23 Dose: 40 mg Trazodone HCl (Desyrel -) 300 mg PO HS [facility] Last Admin: 04/01/17 21:24 Dose: 300 mg Gen: NAD at rest Heart: RRR Lung: decreased breath sounds at the bases Abd: soft, nontender Ext: no edema, dressings intact Laboratory Results - last 24 hr 04/01/17 04/01/17 04/02/17 09:54 21:22 05:56 WBC RBC Hgb Hct MCV MCH MCHC RDW Plt Count MPV Sodium Potassium Chloride Carbon Dioxide Anion Gap BUN Creatinine POC Glucometer 324 369 Random Glucose Calcium Blood Type B POSITIVE Antibody Screen Negative Crossmatch See Detail 04/02/17 04/02/17 04/02/17 08:00 08:00 12:13 WBC 13.6 H RBC 2.60 L Hgb 7.2 L Hct 22.7 L MCV 87.3 MCH 27.6 MCHC 31.6 L RDW 18.0 H Plt Count 516 H MPV 7.6 Sodium 142 Potassium 4.6 Chloride 102 Carbon Dioxide 30 Anion Gap 10 BUN 51 H Creatinine 3.8 H POC Glucometer 83 Random Glucose 201 H D Calcium 7.5 L Blood Type Antibody Screen Crossmatch ASSESSMENT AND PLAN: 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
[2017-04-02] MEDS: oxyCODONE HCL 5 MG TABLET PO PRN ×2 (15:42→21:19)
--- NOTE | 2017-04-02 15:42 | PN ---
Progress Note, Physician History of Present Illness: Pt is s/p Rt foot bone biopsy. States he feels well, no specific complaints. Afebrile. - Current Medication List Current Medications: Active Medications Albuterol Sulfate (Ventolin 0.083% Nebulizer Soln -) 1 amp NEB Q4H PRN PRN Reason: SHORT OF BREATH/WHEEZING Amlodipine Besylate (Norvasc -) 10 mg PO DAILY [facility] Last Admin: 04/02/17 12:24 Dose: 10 mg Collagenase (Santyl -) 1 applic TP DAILY [facility] Last Admin: 04/02/17 14:24 Dose: 1 applic Doxazosin Mesylate (Cardura -) 4 mg PO DAILY [facility] Last Admin: 04/02/17 12:23 Dose: 4 mg Duloxetine HCl (Cymbalta -) 30 mg PO DAILY [facility] Last Admin: 04/02/17 12:24 Dose: 30 mg Fentanyl (Sublimaze Injection -) 25 mcg IVPUSH [id number] PRN PRN Reason: PAIN Folic Acid (Folic Acid -) 1 mg PO DAILY [facility] Last Admin: 04/02/17 12:24 Dose: 1 mg Gabapentin (Neurontin -) 100 mg PO TID [facility] Last Admin: 04/02/17 14:24 Dose: 100 mg Heparin Sodium (Porcine) (Heparin -) 5,000 unit SQ BID [facility] Last Admin: 04/02/17 12:25 Dose: 5,000 unit Hydromorphone HCl (Dilaudid Injection -) 1 mg IVPB Q3H PRN PRN Reason: PAIN Insulin Aspart (Novolog Vial Sliding Scale -) 1 vial SQ ACHS [facility] PRN Reason: Protocol Last Admin: 04/02/17 12:24 Dose: Not Given Insulin Detemir (Levemir Vial) 15 units SQ BID@0700,2200 [facility] Last Admin: 04/02/17 06:18 Dose: 15 units Metoprolol Tartrate (Lopressor -) 50 mg PO BID [facility] Last Admin: 04/02/17 12:24 Dose: 50 mg Mirtazapine (Remeron -) 30 mg PO HS [facility] Last Admin: 04/01/17 21:24 Dose: 30 mg Morphine Sulfate (Morphine Sulfate) 2 mg IVPUSH Q4H PRN Last Admin: 04/02/17 12:25 Dose: 2 mg Ondansetron HCl (Zofran Injection) 4 mg IVPUSH Q6H PRN PRN Reason: NAUSEA AND/OR VOMITING Oxycodone HCl (Roxicodone -) 10 mg PO Q6H PRN PRN Reason: PAIN Last Admin: 04/01/17 21:23 Dose: 10 mg Pantoprazole Sodium (Protonix -) 40 mg PO DAILY [facility] Last Admin: 04/02/17 12:23 Dose: 40 mg Sevelamer Carbonate (Renvela -) 800 mg PO TIDCM [facility] Last Admin: 04/02/17 12:25 Dose: 800 mg Sodium Bicarbonate (Sodium Bicarbonate -) 1,300 mg PO BID [facility] Last Admin: 04/02/17 12:24 Dose: 1,300 mg Torsemide (Demadex -) 40 mg PO DAILY [facility] Last Admin: 04/02/17 12:23 Dose: 40 mg Trazodone HCl (Desyrel -) 300 mg PO HS [facility] Last Admin: 04/01/17 21:24 Dose: 300 mg - Objective Vital Signs: Vital Signs Temperature 98.7 F 04/02/17 14:00 Pulse Rate 80 04/02/17 14:00 Respiratory Rate 21 04/02/17 14:00 Blood Pressure 144/76 04/02/17 14:00 O2 Sat by Pulse Oximetry (%) 95 04/01/17 20:51 Constitutional: Yes: No Distress, Calm Neck: Yes: Supple Cardiovascular: Yes: Regular Rate and Rhythm Respiratory: Yes: CTA Bilaterally Gastrointestinal: Yes: Normal Bowel Sounds, Soft Extremities: Yes: Amputation (LLE), Other (Rt foot ulcers, dressed) Wound/Incision: Yes: Dressing Dry and Intact Neurological: Yes: Alert, Oriented Labs: CBC, BMP 04/02/17 08:00 04/02/17 08:00 INR, PTT INR 1.14 (0.82-1.09) 03/18/17 17:50 Microbiology 03/30/17 12:03 Stool Clostridium difficile Antigen (CORA) - Final 03/30/17 12:03 Stool Clostridium difficile Toxin Assay - Final 03/24/17 19:40 Blood - Peripheral Venous Blood Culture - Final NO GROWTH AFTER 5 DAYS INCUBATION 03/24/17 19:40 Blood - Peripheral Venous Blood Culture - Final NO GROWTH AFTER 5 DAYS INCUBATION 03/18/17 Unknown Blood - Peripheral Venous Blood Culture - Final NO GROWTH AFTER 5 DAYS INCUBATION 03/18/17 Unknown Blood - Peripheral Venous Blood Culture - Final Beta Hem Streptococcus Group G 03/18/17 19:30 Foot - Left Gram Stain - Final 03/18/17 19:30 Foot - Left Wound Culture - Final Beta Hem Streptococcus Group G Diphtheroid/Corynebacterium Morganella Morganii 03/18/17 17:53 Urine - Urine Clean Catch Urine Culture - Final NO GROWTH OBTAINED Problem List - Problems (1) ARF (acute renal failure) Code(s): N17.9 - ACUTE KIDNEY FAILURE, UNSPECIFIED Qualifiers: Acute renal failure type: unspecified Qualified Code(s): N17.9 - Acute kidney failure, unspecified (2) Gangrene of left foot Code(s): I96 - GANGRENE, NOT ELSEWHERE CLASSIFIED (3) Syncope Code(s): R55 - SYNCOPE AND COLLAPSE Qualifiers: Syncope type: unspecified Qualified Code(s): R55 - Syncope and collapse (4) COPD with emphysema Code(s): J43.9 - EMPHYSEMA, UNSPECIFIED (5) Chronic renal insufficiency, stage IV (severe) Code(s): N18.4 - CHRONIC KIDNEY DISEASE, STAGE 4 (SEVERE) (6) Diabetic neuropathy Code(s): E11.40 - TYPE 2 DIABETES MELLITUS WITH DIABETIC NEUROPATHY, UNSP Qualifiers: 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 type: type 2 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 complication detail: diabetic polyneuropathy Qualified Code(s): E11.42 - Type 2 diabetes mellitus with diabetic polyneuropathy (7) Foot infection Code(s): L08.9 - LOCAL INFECTION OF THE SKIN AND SUBCUTANEOUS TISSUE, UNSP (8) Neuropathy Code(s): G62.9 - POLYNEUROPATHY, UNSPECIFIED (9) S/P amputation Code(s): Z89.9 - ACQUIRED ABSENCE OF LIMB, UNSPECIFIED (10) Type 2 diabetes mellitus with foot ulcer Code(s): E11.621 - TYPE 2 DIABETES MELLITUS WITH FOOT ULCER; L97.509 - NON- PRESSURE CHRONIC ULCER OTH PRT UNSP FOOT W UNSP SEVERITY (11) Osteomyelitis of right foot Code(s): M86.9 - OSTEOMYELITIS, UNSPECIFIED Assessment/Plan Lt LE gangrene/infection s/p BKA s/p Streptococcal Bacteremia/ sepsis FROYLAN/CKD now ESRD on HD Leukocytosis Rt foot OM s/p bone biopsy, cultures pending Diarrhea - CDT (-) - resolved - continue monitor off antibiotics - awaiting bone culture results - continue monitor cbc, improved since yesterday - cont wound care pt clinically stable
--- NOTE | 2017-04-02 21:04 | PN ---
Progress Note, Physician History of Present Illness: doing well - Current Medication List Current Medications: Active Medications Albuterol Sulfate (Ventolin 0.083% Nebulizer Soln -) 1 amp NEB Q4H PRN PRN Reason: SHORT OF BREATH/WHEEZING Amlodipine Besylate (Norvasc -) 10 mg PO DAILY [facility] Last Admin: 04/02/17 12:24 Dose: 10 mg Collagenase (Santyl -) 1 applic TP DAILY [facility] Last Admin: 04/02/17 14:24 Dose: 1 applic Doxazosin Mesylate (Cardura -) 4 mg PO DAILY [facility] Last Admin: 04/02/17 12:23 Dose: 4 mg Duloxetine HCl (Cymbalta -) 30 mg PO DAILY [facility] Last Admin: 04/02/17 12:24 Dose: 30 mg Fentanyl (Sublimaze Injection -) 25 mcg IVPUSH [id number] PRN PRN Reason: PAIN Folic Acid (Folic Acid -) 1 mg PO DAILY [facility] Last Admin: 04/02/17 12:24 Dose: 1 mg Gabapentin (Neurontin -) 100 mg PO TID [facility] Last Admin: 04/02/17 14:24 Dose: 100 mg Heparin Sodium (Porcine) (Heparin -) 5,000 unit SQ BID [facility] Last Admin: 04/02/17 12:25 Dose: 5,000 unit Hydromorphone HCl (Dilaudid Injection -) 1 mg IVPB Q3H PRN PRN Reason: PAIN Insulin Aspart (Novolog Vial Sliding Scale -) 1 vial SQ ACHS [facility] PRN Reason: Protocol Last Admin: 04/02/17 17:15 Dose: 2 units Insulin Detemir (Levemir Vial) 15 units SQ BID@0700,2200 [facility] Last Admin: 04/02/17 06:18 Dose: 15 units Metoprolol Tartrate (Lopressor -) 50 mg PO BID [facility] Last Admin: 04/02/17 12:24 Dose: 50 mg Mirtazapine (Remeron -) 30 mg PO HS [facility] Last Admin: 04/01/17 21:24 Dose: 30 mg Morphine Sulfate (Morphine Sulfate) 2 mg IVPUSH Q4H PRN Last Admin: 04/02/17 12:25 Dose: 2 mg Ondansetron HCl (Zofran Injection) 4 mg IVPUSH Q6H PRN PRN Reason: NAUSEA AND/OR VOMITING Oxycodone HCl (Roxicodone -) 10 mg PO Q6H PRN PRN Reason: PAIN Last Admin: 04/02/17 15:42 Dose: 10 mg Pantoprazole Sodium (Protonix -) 40 mg PO DAILY [facility] Last Admin: 04/02/17 12:23 Dose: 40 mg Sevelamer Carbonate (Renvela -) 800 mg PO TIDCM [facility] Last Admin: 04/02/17 17:25 Dose: 800 mg Sodium Bicarbonate (Sodium Bicarbonate -) 1,300 mg PO BID [facility] Last Admin: 04/02/17 12:24 Dose: 1,300 mg Torsemide (Demadex -) 40 mg PO DAILY [facility] Last Admin: 04/02/17 12:23 Dose: 40 mg Trazodone HCl (Desyrel -) 300 mg PO HS [facility] Last Admin: 04/01/17 21:24 Dose: 300 mg - Objective Vital Signs: Vital Signs Temperature 98.7 F 04/02/17 18:00 Pulse Rate 20 L 04/02/17 18:00 Respiratory Rate 20 04/02/17 18:00 Blood Pressure 155/87 04/02/17 18:00 O2 Sat by Pulse Oximetry (%) 95 04/02/17 09:00 Constitutional: Yes: No Distress HENT: Yes: Atraumatic Neck: Yes: Supple Cardiovascular: Yes: Regular Rate and Rhythm Respiratory: Yes: CTA Bilaterally Gastrointestinal: Yes: Normal Bowel Sounds Extremities: Yes: WNL Neurological: Yes: Alert, Oriented Labs: CBC, BMP 04/02/17 08:00 04/02/17 08:00 INR, PTT INR 1.14 (0.82-1.09) 03/18/17 17:50 Problem List - Problems (1) ARF (acute renal failure) Assessment/Plan: on hd dr mendoza Code(s): N17.9 - ACUTE KIDNEY FAILURE, UNSPECIFIED Qualifiers: Acute renal failure type: unspecified Qualified Code(s): N17.9 - Acute kidney failure, unspecified (2) Hyperkalemia Assessment/Plan: on hd. Code(s): E87.5 - HYPERKALEMIA (3) Hyponatremia Assessment/Plan: resolved Code(s): E87.1 - HYPO-OSMOLALITY AND HYPONATREMIA (4) Syncope Assessment/Plan: resolved Code(s): R55 - SYNCOPE AND COLLAPSE Qualifiers: Syncope type: unspecified Qualified Code(s): R55 - Syncope and collapse (5) 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 Assessment/Plan: [facility] [place] Code(s): E11.9 - TYPE 2 DIABETES MELLITUS WITHOUT COMPLICATIONS Qualifiers: 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 type: type 2 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 complication status: without complication 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 termite control representative insulin use: without termite control representative use Qualified Code(s): E11.9 - Type 2 diabetes mellitus without complications (6) GERD (gastroesophageal reflux disease) Code(s): K21.9 - GASTRO-ESOPHAGEAL REFLUX DISEASE WITHOUT ESOPHAGITIS (7) HTN (hypertension) Assessment/Plan: on meds stable Code(s): I10 - ESSENTIAL (PRIMARY) HYPERTENSION Qualifiers: Hypertension type: essential hypertension Qualified Code(s): I10 - Essential (primary) hypertension (8) Type 2 diabetes mellitus with foot ulcer Assessment/Plan: s/p bka today dr marin s/p biopdy R foot off of abx Code(s): E11.621 - TYPE 2 DIABETES MELLITUS WITH FOOT ULCER; L97.509 - NON- PRESSURE CHRONIC ULCER OTH PRT UNSP FOOT W UNSP SEVERITY
[2017-04-02] MEDS ORDERED: traZODone HCL 50 MG TABLET (FP) ONE (21:12)
[2017-04-02] MEDS ORDERED: MIRTAZAPINE 15 MG TABLET (FP) ONE (21:12)
[2017-04-02] MEDS: traZODone HCL 100 MG TABLET (FP) PO SCH (21:21)
[2017-04-02] MEDS: MIRTAZAPINE 30 MG TABLET (FP) PO SCH (21:22)
[2017-04-03] MEDS: INSULIN DETEMIR 100 UNITS/ML MDV SQ SCH ×2 (06:36→21:11)
[2017-04-03] MEDS: GABAPENTIN 100 MG CAPSULE (FP) PO SCH ×3 (06:39→21:11)
[2017-04-03] MEDS ORDERED: INSULIN (NOVOLOG) ASPART 100 UNITS/ML 10ML VIAL ONE ×2 (06:43→21:10)
--- NOTE | 2017-04-03 07:16 | PN ---
Progress Note, Physician Chief Complaint: s/p bone biopsy of right foot under MAC History of Present Illness: post op day one - Current Medication List Current Medications: Active Medications Albuterol Sulfate (Ventolin 0.083% Nebulizer Soln -) 1 amp NEB Q4H PRN PRN Reason: SHORT OF BREATH/WHEEZING Amlodipine Besylate (Norvasc -) 10 mg PO DAILY [facility] Last Admin: 04/02/17 12:24 Dose: 10 mg Collagenase (Santyl -) 1 applic TP DAILY [facility] Last Admin: 04/02/17 14:24 Dose: 1 applic Doxazosin Mesylate (Cardura -) 4 mg PO DAILY [facility] Last Admin: 04/02/17 12:23 Dose: 4 mg Duloxetine HCl (Cymbalta -) 30 mg PO DAILY [facility] Last Admin: 04/02/17 12:24 Dose: 30 mg Fentanyl (Sublimaze Injection -) 25 mcg IVPUSH [id number] PRN PRN Reason: PAIN Folic Acid (Folic Acid -) 1 mg PO DAILY [facility] Last Admin: 04/02/17 12:24 Dose: 1 mg Gabapentin (Neurontin -) 100 mg PO TID [facility] Last Admin: 04/03/17 06:39 Dose: 100 mg Heparin Sodium (Porcine) (Heparin -) 5,000 unit SQ BID [facility] Last Admin: 04/02/17 22:00 Dose: 5,000 unit Hydromorphone HCl (Dilaudid Injection -) 1 mg IVPB Q3H PRN PRN Reason: PAIN Insulin Aspart (Novolog Vial Sliding Scale -) 1 vial SQ ACHS [facility] PRN Reason: Protocol Last Admin: 04/02/17 21:23 Dose: 2 units Insulin Detemir (Levemir Vial) 15 units SQ BID@0700,2200 [facility] Last Admin: 04/03/17 06:36 Dose: 15 units Metoprolol Tartrate (Lopressor -) 50 mg PO BID [facility] Last Admin: 04/02/17 21:19 Dose: 50 mg Mirtazapine (Remeron -) 30 mg PO HS [facility] Last Admin: 04/02/17 21:22 Dose: 30 mg Morphine Sulfate (Morphine Sulfate) 2 mg IVPUSH Q4H PRN Last Admin: 04/02/17 12:25 Dose: 2 mg Ondansetron HCl (Zofran Injection) 4 mg IVPUSH Q6H PRN PRN Reason: NAUSEA AND/OR VOMITING Oxycodone HCl (Roxicodone -) 10 mg PO Q6H PRN PRN Reason: PAIN Last Admin: 04/02/17 21:19 Dose: 10 mg Pantoprazole Sodium (Protonix -) 40 mg PO DAILY [facility] Last Admin: 04/02/17 12:23 Dose: 40 mg Sevelamer Carbonate (Renvela -) 800 mg PO TIDCM [facility] Last Admin: 04/02/17 17:25 Dose: 800 mg Sodium Bicarbonate (Sodium Bicarbonate -) 1,300 mg PO BID [facility] Last Admin: 04/02/17 21:23 Dose: 1,300 mg Torsemide (Demadex -) 40 mg PO DAILY [facility] Last Admin: 04/02/17 12:23 Dose: 40 mg Trazodone HCl (Desyrel -) 300 mg PO HS [facility] Last Admin: 04/02/17 21:21 Dose: 300 mg - Objective Vital Signs: Vital Signs Temperature 97.8 F 04/03/17 02:03 Pulse Rate 73 04/03/17 02:03 Respiratory Rate 18 04/03/17 02:03 Blood Pressure 124/75 04/03/17 02:03 O2 Sat by Pulse Oximetry (%) 95 04/02/17 09:00 Constitutional: Yes: Well Nourished Cardiovascular: Yes: WNL Respiratory: Yes: WNL Gastrointestinal: Yes: WNL Labs: CBC, BMP 04/02/17 08:00 04/02/17 08:00 INR, PTT INR 1.14 (0.82-1.09) 03/18/17 17:50 Assessment/Plan Patient reported no adverse effect from anesthetic, no pain from procedure, still in pain from perviour amputation of other leg, advised to inform primary team that pain is not well controlled. Feel free to consult the dept of anesthesia with questions about pain management otherwise the dept of anesthesia will sign off the care of this patient at this time.
[2017-04-03] MEDS: SEVELAMER CARBONATE 800 MG TAB (FP) PO SCH ×3 (08:00→16:58)
[2017-04-03] MEDS ORDERED: PT OWN MED DRAWER 7, Y5N ONE (09:56)
[2017-04-03] MEDS: PANTOPRAZOLE 40 MG TABLET (FP) PO SCH (09:59)
[2017-04-03] MEDS: SODIUM BICARBONATE 650 MG TABLET PO SCH ×2 (09:59→21:11)
[2017-04-03] MEDS: METOPROLOL TARTRATE 50 MG TABLET (FP) PO SCH ×2 (09:59→21:11)
[2017-04-03] MEDS: DULoxetine HCL 30 MG CAPSULE.DR (FP) PO SCH (09:59)
[2017-04-03] MEDS: amLODIPine BESYLATE 10 MG TABLET (FP) PO SCH (09:59)
[2017-04-03] MEDS: TORSEMIDE 20 MG TABLET (FP) PO SCH (09:59)
[2017-04-03] MEDS: FOLIC ACID 1 MG TABLET (FP) PO SCH (09:59)
[2017-04-03] MEDS: DOXAZOSIN MESYLATE 4 MG TABLET PO SCH (09:59)
[2017-04-03] MEDS: HEPARIN NA (PORCINE) 5,000 UNITS/ML 1ML VIAL SQ SCH ×2 (09:59→21:11)
[2017-04-03] MEDS: COLLAGENASE CLOSTRIDIUM HIST. 30 GRAMS TUBE TP SCH (10:05)
[2017-04-03] MEDS: morphine SULFATE 4 MG/ML VIAL IVPUSH PRN ×2 (10:41→21:01)
[2017-04-03] MEDS: INSULIN SLIDING SCALE (NOVOLOG) 1 VIAL SQ SCH ×3 (11:48→21:10)
--- NOTE | 2017-04-03 12:41 | PN ---
Progress Note, Physician History of Present Illness: Pt feels well. No fever/chills. No recent diarrhea, no abd pain. - Current Medication List Current Medications: Active Medications Albuterol Sulfate (Ventolin 0.083% Nebulizer Soln -) 1 amp NEB Q4H PRN PRN Reason: SHORT OF BREATH/WHEEZING Amlodipine Besylate (Norvasc -) 10 mg PO DAILY [facility] Last Admin: 04/03/17 09:59 Dose: 10 mg Collagenase (Santyl -) 1 applic TP DAILY [facility] Last Admin: 04/03/17 10:05 Dose: 1 applic Doxazosin Mesylate (Cardura -) 4 mg PO DAILY [facility] Last Admin: 04/03/17 09:59 Dose: 4 mg Duloxetine HCl (Cymbalta -) 30 mg PO DAILY [facility] Last Admin: 04/03/17 09:59 Dose: 30 mg Fentanyl (Sublimaze Injection -) 25 mcg IVPUSH [id number] PRN PRN Reason: PAIN Folic Acid (Folic Acid -) 1 mg PO DAILY [facility] Last Admin: 04/03/17 09:59 Dose: 1 mg Gabapentin (Neurontin -) 100 mg PO TID [facility] Last Admin: 04/03/17 06:39 Dose: 100 mg Heparin Sodium (Porcine) (Heparin -) 5,000 unit SQ BID [facility] Last Admin: 04/03/17 09:59 Dose: 5,000 unit Hydromorphone HCl (Dilaudid Injection -) 1 mg IVPB Q3H PRN PRN Reason: PAIN Insulin Aspart (Novolog Vial Sliding Scale -) 1 vial SQ ACHS [facility] PRN Reason: Protocol Last Admin: 04/03/17 11:48 Dose: 2 units Insulin Detemir (Levemir Vial) 15 units SQ BID@0700,2200 [facility] Last Admin: 04/03/17 06:36 Dose: 15 units Metoprolol Tartrate (Lopressor -) 50 mg PO BID [facility] Last Admin: 04/03/17 09:59 Dose: 50 mg Mirtazapine (Remeron -) 30 mg PO HS [facility] Last Admin: 04/02/17 21:22 Dose: 30 mg Morphine Sulfate (Morphine Sulfate) 2 mg IVPUSH Q4H PRN Last Admin: 04/03/17 10:41 Dose: 2 mg Ondansetron HCl (Zofran Injection) 4 mg IVPUSH Q6H PRN PRN Reason: NAUSEA AND/OR VOMITING Oxycodone HCl (Roxicodone -) 10 mg PO Q6H PRN PRN Reason: PAIN Last Admin: 04/02/17 21:19 Dose: 10 mg Pantoprazole Sodium (Protonix -) 40 mg PO DAILY [facility] Last Admin: 04/03/17 09:59 Dose: 40 mg Sevelamer Carbonate (Renvela -) 800 mg PO TIDCM [facility] Last Admin: 04/03/17 11:45 Dose: 800 mg Sodium Bicarbonate (Sodium Bicarbonate -) 1,300 mg PO BID [facility] Last Admin: 04/03/17 09:59 Dose: 1,300 mg Torsemide (Demadex -) 40 mg PO DAILY [facility] Last Admin: 04/03/17 09:59 Dose: 40 mg Trazodone HCl (Desyrel -) 300 mg PO HS [facility] Last Admin: 04/02/17 21:21 Dose: 300 mg - Objective Vital Signs: Vital Signs Temperature 97.7 F 04/03/17 08:07 Pulse Rate 70 04/03/17 08:07 Respiratory Rate 18 04/03/17 08:07 Blood Pressure 140/80 04/03/17 08:07 O2 Sat by Pulse Oximetry (%) 95 04/02/17 09:00 Constitutional: Yes: No Distress, Calm Neck: Yes: Supple Cardiovascular: Yes: Regular Rate and Rhythm Respiratory: Yes: Regular Gastrointestinal: Yes: Normal Bowel Sounds, Soft Extremities: Yes: Amputation (LLE amputation, Rt foot dressed) Labs: CBC, BMP 04/02/17 08:00 04/02/17 08:00 INR, PTT INR 1.14 (0.82-1.09) 03/18/17 17:50 Problem List - Problems (1) ARF (acute renal failure) Code(s): N17.9 - ACUTE KIDNEY FAILURE, UNSPECIFIED Qualifiers: Acute renal failure type: unspecified Qualified Code(s): N17.9 - Acute kidney failure, unspecified (2) Gangrene of left foot Code(s): I96 - GANGRENE, NOT ELSEWHERE CLASSIFIED (3) Syncope Code(s): R55 - SYNCOPE AND COLLAPSE Qualifiers: Syncope type: unspecified Qualified Code(s): R55 - Syncope and collapse (4) COPD with emphysema Code(s): J43.9 - EMPHYSEMA, UNSPECIFIED (5) Chronic renal insufficiency, stage IV (severe) Code(s): N18.4 - CHRONIC KIDNEY DISEASE, STAGE 4 (SEVERE) (6) Diabetic neuropathy Code(s): E11.40 - TYPE 2 DIABETES MELLITUS WITH DIABETIC NEUROPATHY, UNSP Qualifiers: 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 type: type 2 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 complication detail: diabetic polyneuropathy Qualified Code(s): E11.42 - Type 2 diabetes mellitus with diabetic polyneuropathy (7) Foot infection Code(s): L08.9 - LOCAL INFECTION OF THE SKIN AND SUBCUTANEOUS TISSUE, UNSP (8) Neuropathy Code(s): G62.9 - POLYNEUROPATHY, UNSPECIFIED (9) S/P amputation Code(s): Z89.9 - ACQUIRED ABSENCE OF LIMB, UNSPECIFIED (10) Type 2 diabetes mellitus with foot ulcer Code(s): E11.621 - TYPE 2 DIABETES MELLITUS WITH FOOT ULCER; L97.509 - NON- PRESSURE CHRONIC ULCER OTH PRT UNSP FOOT W UNSP SEVERITY (11) Osteomyelitis of right foot Code(s): M86.9 - OSTEOMYELITIS, UNSPECIFIED Assessment/Plan Lt LE gangrene/infection s/p BKA s/p Streptococcal Bacteremia/ sepsis FROYLAN/CKD now ESRD on HD Leukocytosis Rt foot OM s/p bone biopsy, cultures pending Diarrhea - CDT (-) - resolved - continue monitor off antibiotics - awaiting bone culture results - continue monitor cbc, improved since yesterday - cont wound care pt clinically stable
--- NOTE | 2017-04-03 13:06 | PN ---
Progress Note (short form) - Note Progress Note: Renal Follow up for FROYLAN on CKD Pt seen and examined at the bedside no acute complaints s/p dialysis yesterday Vital Signs Temperature 97.7 F 04/03/17 08:07 Pulse Rate 70 04/03/17 08:07 Respiratory Rate 18 04/03/17 08:07 Blood Pressure 140/80 04/03/17 08:07 O2 Sat by Pulse Oximetry (%) 96 04/03/17 09:00 Intake & Output 03/31/17 04/01/17 04/02/17 04/03/17 23:59 23:59 23:59 23:59 Intake Total 0682 658 2025 200 Output Total 1200 2000 800 400 Balance 150 -1400 850 -200 Weight 98.6 kg 97.211 kg 98.089 kg 98.997 kg NAD awake and alert RRR Dec Bs at lung bases, no rales soft NT/ND CBC, BMP 04/02/17 08:00 04/02/17 08:00 Current Medications Albuterol Sulfate (Ventolin 0.083% Nebulizer Soln -) 1 amp NEB Q4H PRN PRN Reason: SHORT OF BREATH/WHEEZING Amlodipine Besylate (Norvasc -) 10 mg PO DAILY [facility] Last Admin: 04/03/17 09:59 Dose: 10 mg Collagenase (Santyl -) 1 applic TP DAILY [facility] Last Admin: 04/03/17 10:05 Dose: 1 applic Doxazosin Mesylate (Cardura -) 4 mg PO DAILY [facility] Last Admin: 04/03/17 09:59 Dose: 4 mg Duloxetine HCl (Cymbalta -) 30 mg PO DAILY [facility] Last Admin: 04/03/17 09:59 Dose: 30 mg Fentanyl (Sublimaze Injection -) 25 mcg IVPUSH [id number] PRN PRN Reason: PAIN Folic Acid (Folic Acid -) 1 mg PO DAILY [facility] Last Admin: 04/03/17 09:59 Dose: 1 mg Gabapentin (Neurontin -) 100 mg PO TID [facility] Last Admin: 04/03/17 06:39 Dose: 100 mg Heparin Sodium (Porcine) (Heparin -) 5,000 unit SQ BID [facility] Last Admin: 04/03/17 09:59 Dose: 5,000 unit Hydromorphone HCl (Dilaudid Injection -) 1 mg IVPB Q3H PRN PRN Reason: PAIN Insulin Aspart (Novolog Vial Sliding Scale -) 1 vial SQ ACHS [facility] PRN Reason: Protocol Last Admin: 04/03/17 11:48 Dose: 2 units Insulin Detemir (Levemir Vial) 15 units SQ BID@0700,2200 [facility] Last Admin: 04/03/17 06:36 Dose: 15 units Metoprolol Tartrate (Lopressor -) 50 mg PO BID [facility] Last Admin: 04/03/17 09:59 Dose: 50 mg Mirtazapine (Remeron -) 30 mg PO HS [facility] Last Admin: 04/02/17 21:22 Dose: 30 mg Morphine Sulfate (Morphine Sulfate) 2 mg IVPUSH Q4H PRN Last Admin: 04/03/17 10:41 Dose: 2 mg Ondansetron HCl (Zofran Injection) 4 mg IVPUSH Q6H PRN PRN Reason: NAUSEA AND/OR VOMITING Oxycodone HCl (Roxicodone -) 10 mg PO Q6H PRN PRN Reason: PAIN Last Admin: 04/02/17 21:19 Dose: 10 mg Pantoprazole Sodium (Protonix -) 40 mg PO DAILY [facility] Last Admin: 04/03/17 09:59 Dose: 40 mg Sevelamer Carbonate (Renvela -) 800 mg PO TIDCM [facility] Last Admin: 04/03/17 11:45 Dose: 800 mg Sodium Bicarbonate (Sodium Bicarbonate -) 1,300 mg PO BID [facility] Last Admin: 04/03/17 09:59 Dose: 1,300 mg Torsemide (Demadex -) 40 mg PO DAILY [facility] Last Admin: 04/03/17 09:59 Dose: 40 mg Trazodone HCl (Desyrel -) 300 mg PO HS [facility] Last Admin: 04/02/17 21:21 Dose: 300 mg 61 year old gentleman with PMhx of CKD stage 4 (baseline Cr 2.8), Hypertension , DM, PVD, Depression who presented with syncope and found to have acute on chronic renal failure with hyperkalemia and hyponatremia. #Acute Renal Failure now with ESRD on HD s/p dialysis yesterday next treatment planned for tomorrow #Leukocytosis/Sepsis/infected LE wound holding antibiotics pending bone biopsy result ID following #Acute on Chronic anemia continue ADRIAN with HD goal hgb ~10 transfuse for Hgb less then 8 Miguel Jansen DO Problem List - Problems (1) Hyponatremia Code(s): E87.1 - HYPO-OSMOLALITY AND HYPONATREMIA (2) ARF (acute renal failure) Code(s): N17.9 - ACUTE KIDNEY FAILURE, UNSPECIFIED Qualifiers: Acute renal failure type: unspecified Qualified Code(s): N17.9 - Acute kidney failure, unspecified (3) Hyperkalemia Code(s): E87.5 - HYPERKALEMIA (4) Syncope Code(s): R55 - SYNCOPE AND COLLAPSE Qualifiers: Syncope type: unspecified Qualified Code(s): R55 - Syncope and collapse (5) FROYLAN (acute kidney injury) Code(s): N17.9 - ACUTE KIDNEY FAILURE, UNSPECIFIED
--- NOTE | 2017-04-03 19:00 | PN ---
Progress Note, Physician History of Present Illness: doing well - Current Medication List Current Medications: Active Medications Albuterol Sulfate (Ventolin 0.083% Nebulizer Soln -) 1 amp NEB Q4H PRN PRN Reason: SHORT OF BREATH/WHEEZING Amlodipine Besylate (Norvasc -) 10 mg PO DAILY [facility] Last Admin: 04/03/17 09:59 Dose: 10 mg Collagenase (Santyl -) 1 applic TP DAILY [facility] Last Admin: 04/03/17 10:05 Dose: 1 applic Doxazosin Mesylate (Cardura -) 4 mg PO DAILY [facility] Last Admin: 04/03/17 09:59 Dose: 4 mg Duloxetine HCl (Cymbalta -) 30 mg PO DAILY [facility] Last Admin: 04/03/17 09:59 Dose: 30 mg Fentanyl (Sublimaze Injection -) 25 mcg IVPUSH [id number] PRN PRN Reason: PAIN Folic Acid (Folic Acid -) 1 mg PO DAILY [facility] Last Admin: 04/03/17 09:59 Dose: 1 mg Gabapentin (Neurontin -) 100 mg PO TID [facility] Last Admin: 04/03/17 13:15 Dose: 100 mg Heparin Sodium (Porcine) (Heparin -) 5,000 unit SQ BID [facility] Last Admin: 04/03/17 09:59 Dose: 5,000 unit Hydromorphone HCl (Dilaudid Injection -) 1 mg IVPB Q3H PRN PRN Reason: PAIN Insulin Aspart (Novolog Vial Sliding Scale -) 1 vial SQ ACHS [facility] PRN Reason: Protocol Last Admin: 04/03/17 17:00 Dose: 2 units Insulin Detemir (Levemir Vial) 15 units SQ BID@0700,2200 [facility] Last Admin: 04/03/17 06:36 Dose: 15 units Metoprolol Tartrate (Lopressor -) 50 mg PO BID [facility] Last Admin: 04/03/17 09:59 Dose: 50 mg Mirtazapine (Remeron -) 30 mg PO HS [facility] Last Admin: 04/02/17 21:22 Dose: 30 mg Morphine Sulfate (Morphine Sulfate) 2 mg IVPUSH Q4H PRN Last Admin: 04/03/17 10:41 Dose: 2 mg Ondansetron HCl (Zofran Injection) 4 mg IVPUSH Q6H PRN PRN Reason: NAUSEA AND/OR VOMITING Oxycodone HCl (Roxicodone -) 10 mg PO Q6H PRN PRN Reason: PAIN Last Admin: 04/02/17 21:19 Dose: 10 mg Pantoprazole Sodium (Protonix -) 40 mg PO DAILY [facility] Last Admin: 04/03/17 09:59 Dose: 40 mg Sevelamer Carbonate (Renvela -) 800 mg PO TIDCM [facility] Last Admin: 04/03/17 16:58 Dose: 800 mg Sodium Bicarbonate (Sodium Bicarbonate -) 1,300 mg PO BID [facility] Last Admin: 04/03/17 09:59 Dose: 1,300 mg Torsemide (Demadex -) 40 mg PO DAILY [facility] Last Admin: 04/03/17 09:59 Dose: 40 mg Trazodone HCl (Desyrel -) 300 mg PO HS [facility] Last Admin: 04/02/17 21:21 Dose: 300 mg - Objective Vital Signs: Vital Signs Temperature 99.0 F 04/03/17 14:00 Pulse Rate 75 04/03/17 14:00 Respiratory Rate 20 04/03/17 14:00 Blood Pressure 145/82 04/03/17 14:00 O2 Sat by Pulse Oximetry (%) 96 04/03/17 09:00 Constitutional: Yes: No Distress HENT: Yes: Atraumatic Neck: Yes: Supple Cardiovascular: Yes: Regular Rate and Rhythm Respiratory: Yes: CTA Bilaterally Gastrointestinal: Yes: Normal Bowel Sounds Extremities: Yes: WNL Neurological: Yes: Alert, Oriented Labs: CBC, BMP 04/02/17 08:00 04/02/17 08:00 INR, PTT INR 1.14 (0.82-1.09) 03/18/17 17:50 Problem List - Problems (1) ARF (acute renal failure) Assessment/Plan: on hd dr mendoza Code(s): N17.9 - ACUTE KIDNEY FAILURE, UNSPECIFIED Qualifiers: Acute renal failure type: unspecified Qualified Code(s): N17.9 - Acute kidney failure, unspecified (2) Hyperkalemia Assessment/Plan: on hd. Code(s): E87.5 - HYPERKALEMIA (3) Hyponatremia Assessment/Plan: resolved Code(s): E87.1 - HYPO-OSMOLALITY AND HYPONATREMIA (4) Syncope Assessment/Plan: resolved Code(s): R55 - SYNCOPE AND COLLAPSE Qualifiers: Syncope type: unspecified Qualified Code(s): R55 - Syncope and collapse (5) 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 Code(s): E11.9 - TYPE 2 DIABETES MELLITUS WITHOUT COMPLICATIONS Qualifiers: 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 type: type 2 Diabetes mellitus complication status: without complication Diabetes mellitus fpc insulin use: without fpc use Qualified Code(s): E11.9 - Type 2 diabetes mellitus without complications (6) GERD (gastroesophageal reflux disease) Code(s): K21.9 - GASTRO-ESOPHAGEAL REFLUX DISEASE WITHOUT ESOPHAGITIS (7) HTN (hypertension) Assessment/Plan: on meds stable Code(s): I10 - ESSENTIAL (PRIMARY) HYPERTENSION Qualifiers: Hypertension type: essential hypertension Qualified Code(s): I10 - Essential (primary) hypertension (8) Type 2 diabetes mellitus with foot ulcer Assessment/Plan: s/p bka today dr marin s/p biopdy R foot off of abx Code(s): E11.621 - TYPE 2 DIABETES MELLITUS WITH FOOT ULCER; L97.509 - NON- PRESSURE CHRONIC ULCER OTH PRT UNSP FOOT W UNSP SEVERITY
[2017-04-03] MEDS ORDERED: traZODone HCL 50 MG TABLET (FP) ONE (20:50)
[2017-04-03] MEDS: traZODone HCL 100 MG TABLET (FP) PO SCH (21:11)
[2017-04-03] MEDS: MIRTAZAPINE 30 MG TABLET (FP) PO SCH (21:11)
[2017-04-04] MEDS ORDERED: INSULIN (NOVOLOG) ASPART 100 UNITS/ML 10ML VIAL ONE ×2 (06:09→22:17)
[2017-04-04] MEDS: INSULIN DETEMIR 100 UNITS/ML MDV SQ SCH ×2 (06:17→22:02)
[2017-04-04] MEDS: morphine SULFATE 4 MG/ML VIAL IVPUSH PRN ×3 (06:17→20:41)
[2017-04-04] MEDS: GABAPENTIN 100 MG CAPSULE (FP) PO SCH ×3 (06:17→22:01)
[2017-04-04] MEDS: INSULIN SLIDING SCALE (NOVOLOG) 1 VIAL SQ SCH ×4 (06:21→22:16)
[2017-04-04] MEDS: SEVELAMER CARBONATE 800 MG TAB (FP) PO SCH ×3 (08:00→16:41)
[2017-04-04 08:42] LABS: MCHC 32.1 g/dl (32.0-35.9); MEAN CELL VOLUME 87.1 fl (80-96); MEAN PLT VOLUME 7.4 fl (7.5-11.1); PLATELET COUNT 470 K/MM3 (134-434); RDW 16.9 % (11.9-15.9); WHITE BLOOD COUNT 14.1 K/mm3 (4.0-10.0)
[2017-04-04] MEDS ORDERED: EPOETIN ALFA 20,000 UNIT/1 ML VIAL IVPUSH ONE (09:00)
[2017-04-04 09:01] LABS: ALBUMIN 1.6 g/dl (3.4-5.0); ANION GAP 5 (8-16); CALCIUM 7.1 mg/dL (8.5-10.1); CO2 32 mmol/L (21-32); CREATININE 3.4 mg/dL (0.7-1.3); GLUCOSE,RANDOM 191 mg/dL (74-106); PHOSPHOROUS 3.4 mg/dL (2.5-4.9); SGOT/AST 13 U/L (15-37); SGPT/ALT 16 U/L (12-78)
[2017-04-04 09:03] LABS: ALK PHOS 160 U/L (45-117); BILIRUBIN,TOTAL 0.4 mg/dL (0.2-1.0); TOT PROT 5.6 g/dl (6.4-8.2)
[2017-04-04] MEDS: HEPARIN NA (PORCINE) 5,000 UNITS/ML 1ML VIAL SQ SCH ×2 (10:19→22:02)
[2017-04-04] MEDS ORDERED: PT OWN MED DRAWER 7, Y5N ONE (12:06)
--- NOTE | 2017-04-04 12:13 | PN ---
Progress Note (short form) - Note Progress Note: Renal Follow up for FROYLAN on CKD Pt seen and examined during dialysis pt has PEREZ BP 166/89 UF with Hd was 2.8L got 1 prbc with Hd catheter with good flow and pressures Vital Signs Temperature 98.2 F 04/04/17 12:07 Pulse Rate 89 04/04/17 12:07 Respiratory Rate 18 04/04/17 12:07 Blood Pressure 130/80 04/04/17 12:07 O2 Sat by Pulse Oximetry (%) 97 04/03/17 21:00 Intake & Output 04/01/17 04/02/17 04/03/17 04/04/17 23:59 23:59 23:59 23:59 Intake Total 600 1650 1400 350 Output Total 2000 800 2100 800 Balance -1400 850 -700 -450 Weight 97.211 kg 98.089 kg 98.997 kg 98.997 kg NAD awake and alert RRR Dec Bs at lung bases, no rales soft NT/ND CBC, BMP 04/04/17 08:00 04/04/17 08:00 Current Medications Albuterol Sulfate (Ventolin 0.083% Nebulizer Soln -) 1 amp NEB Q4H PRN PRN Reason: SHORT OF BREATH/WHEEZING Amlodipine Besylate (Norvasc -) 10 mg PO DAILY [facility] Last Admin: 04/03/17 09:59 Dose: 10 mg Collagenase (Santyl -) 1 applic TP DAILY [facility] Last Admin: 04/03/17 10:05 Dose: 1 applic Doxazosin Mesylate (Cardura -) 4 mg PO DAILY [facility] Last Admin: 04/03/17 09:59 Dose: 4 mg Duloxetine HCl (Cymbalta -) 30 mg PO DAILY [facility] Last Admin: 04/03/17 09:59 Dose: 30 mg Fentanyl (Sublimaze Injection -) 25 mcg IVPUSH [id number] PRN PRN Reason: PAIN Folic Acid (Folic Acid -) 1 mg PO DAILY [facility] Last Admin: 04/03/17 09:59 Dose: 1 mg Gabapentin (Neurontin -) 100 mg PO TID [facility] Last Admin: 04/04/17 06:17 Dose: 100 mg Heparin Sodium (Porcine) (Heparin -) 5,000 unit SQ BID [facility] Last Admin: 04/03/17 21:11 Dose: 5,000 unit Hydromorphone HCl (Dilaudid Injection -) 1 mg IVPB Q3H PRN PRN Reason: PAIN Insulin Aspart (Novolog Vial Sliding Scale -) 1 vial SQ ACHS [facility] PRN Reason: Protocol Last Admin: 04/04/17 06:21 Dose: 2 units Insulin Detemir (Levemir Vial) 15 units SQ BID@0700,2200 [facility] Last Admin: 04/04/17 06:17 Dose: 15 units Metoprolol Tartrate (Lopressor -) 50 mg PO BID [facility] Last Admin: 04/03/17 21:11 Dose: 50 mg Mirtazapine (Remeron -) 30 mg PO HS [facility] Last Admin: 04/03/17 21:11 Dose: 30 mg Morphine Sulfate (Morphine Sulfate) 2 mg IVPUSH Q4H PRN Last Admin: 04/04/17 06:17 Dose: 2 mg Ondansetron HCl (Zofran Injection) 4 mg IVPUSH Q6H PRN PRN Reason: NAUSEA AND/OR VOMITING Oxycodone HCl (Roxicodone -) 10 mg PO Q6H PRN PRN Reason: PAIN Last Admin: 04/02/17 21:19 Dose: 10 mg Pantoprazole Sodium (Protonix -) 40 mg PO DAILY [facility] Last Admin: 04/03/17 09:59 Dose: 40 mg Sevelamer Carbonate (Renvela -) 800 mg PO TIDCM [facility] Last Admin: 04/03/17 16:58 Dose: 800 mg Sodium Bicarbonate (Sodium Bicarbonate -) 1,300 mg PO BID [facility] Last Admin: 04/03/17 21:11 Dose: 1,300 mg Torsemide (Demadex -) 40 mg PO DAILY [facility] Last Admin: 04/03/17 09:59 Dose: 40 mg Trazodone HCl (Desyrel -) 300 mg PO HS [facility] Last Admin: 04/03/17 21:11 Dose: 300 mg 61 year old gentleman with PMhx of CKD stage 4 (baseline Cr 2.8), Hypertension , DM, PVD, Depression who presented with syncope and found to have acute on chronic renal failure with hyperkalemia and hyponatremia. #Acute Renal Failure now with ESRD on HD tolerating dialysis well continue 3x weekly Hd as inpatient check URR next treatment dose all meds for intermittent HD outpatient Hd unit placement pending #Leukocytosis/Sepsis/infected LE wound holding antibiotics pending bone biopsy result ID following #Acute on Chronic anemia continue ADRIAN with HD goal hgb ~10 s/p 1 unit prbc transfusion today Miguel Jansen DO Problem List - Problems (1) Hyponatremia Code(s): E87.1 - HYPO-OSMOLALITY AND HYPONATREMIA (2) ARF (acute renal failure) Code(s): N17.9 - ACUTE KIDNEY FAILURE, UNSPECIFIED Qualifiers: Acute renal failure type: unspecified Qualified Code(s): N17.9 - Acute kidney failure, unspecified (3) Hyperkalemia Code(s): E87.5 - HYPERKALEMIA (4) Syncope Code(s): R55 - SYNCOPE AND COLLAPSE Qualifiers: Syncope type: unspecified Qualified Code(s): R55 - Syncope and collapse (5) FROYLAN (acute kidney injury) Code(s): N17.9 - ACUTE KIDNEY FAILURE, UNSPECIFIED
[2017-04-04] MEDS: DULoxetine HCL 30 MG CAPSULE.DR (FP) PO SCH (12:15)
[2017-04-04] MEDS: DOXAZOSIN MESYLATE 4 MG TABLET PO SCH (12:15)
[2017-04-04] MEDS: amLODIPine BESYLATE 10 MG TABLET (FP) PO SCH (12:16)
[2017-04-04] MEDS: METOPROLOL TARTRATE 50 MG TABLET (FP) PO SCH ×2 (12:16→22:02)
[2017-04-04] MEDS: TORSEMIDE 20 MG TABLET (FP) PO SCH (12:16)
[2017-04-04] MEDS: PANTOPRAZOLE 40 MG TABLET (FP) PO SCH (12:16)
[2017-04-04] MEDS: FOLIC ACID 1 MG TABLET (FP) PO SCH (12:16)
[2017-04-04] MEDS: SODIUM BICARBONATE 650 MG TABLET PO SCH ×2 (12:17→22:01)
--- NOTE | 2017-04-04 14:26 | PATH ---
Surgical Pathology Report Patient Name: MARIAJOSE MALAVE [facility]. Rec. #: [id number] /Age/Gender: 1955 (Age: 61) / M Account: [id number] Location: [address] [place] [address]/[facility] Taken: 04/01/2017 Received: 04/02/2017 Reported: 04/04/2017 Physicians: Aroldo Galvan M.D. Specimen(s) Received A: 5TH METATARSAL & PROXIMAL PHALANGES B: 4TH METATARSAL Clinical History None given Final Diagnosis A. BONE, FIFTH METATARSAL AND PROXIMAL PHALANGES, BIOPSY: BONE WITH DEGENERATIVE CHANGES. NO EVIDENCE OF ACUTE OSTEOMYELITIS. B. BONE, FOURTH METATARSAL, RIGHT FOOT, BIOPSY: BONE WITH FOCAL ACUTE OSTEOMYELITIS. Electronically Signed Cinthia Reeder M.D. Gross Description A. Received in formalin labeled "fifth metatarsal and proximal phalanges," is a 0.5 cm in length x 0.1 cm in diameter rae, cylindrical portion of bone. The specimen is submitted in toto in one cassette, following decalcification. B. Received in formalin labeled "fourth metatarsal right foot," are 2 rae, cylindrical portions of bone averaging 0.3 cm in length and 0.1 cm in diameter. The specimens are submitted in toto in one cassette, following decalcification. 04/02/201704/02/2017
--- NOTE | 2017-04-04 14:35 | PN ---
Progress Note, Physician History of Present Illness: Pt remains afebrile, alert, no new complaints. - Current Medication List Current Medications: Active Medications Albuterol Sulfate (Ventolin 0.083% Nebulizer Soln -) 1 amp NEB Q4H PRN PRN Reason: SHORT OF BREATH/WHEEZING Amlodipine Besylate (Norvasc -) 10 mg PO DAILY [facility] Last Admin: 04/04/17 12:16 Dose: 10 mg Collagenase (Santyl -) 1 applic TP DAILY [facility] Last Admin: 04/03/17 10:05 Dose: 1 applic Doxazosin Mesylate (Cardura -) 4 mg PO DAILY [facility] Last Admin: 04/04/17 12:15 Dose: 4 mg Duloxetine HCl (Cymbalta -) 30 mg PO DAILY [facility] Last Admin: 04/04/17 12:15 Dose: 30 mg Fentanyl (Sublimaze Injection -) 25 mcg IVPUSH [id number] PRN PRN Reason: PAIN Folic Acid (Folic Acid -) 1 mg PO DAILY [facility] Last Admin: 04/04/17 12:16 Dose: 1 mg Gabapentin (Neurontin -) 100 mg PO TID [facility] Last Admin: 04/04/17 06:17 Dose: 100 mg Heparin Sodium (Porcine) (Heparin -) 5,000 unit SQ BID [facility] Last Admin: 04/04/17 10:19 Dose: Not Given Hydromorphone HCl (Dilaudid Injection -) 1 mg IVPB Q3H PRN PRN Reason: PAIN Insulin Aspart (Novolog Vial Sliding Scale -) 1 vial SQ ACHS [facility] PRN Reason: Protocol Last Admin: 04/04/17 12:11 Dose: 2 units Insulin Detemir (Levemir Vial) 15 units SQ BID@0700,2200 [facility] Last Admin: 04/04/17 06:17 Dose: 15 units Metoprolol Tartrate (Lopressor -) 50 mg PO BID [facility] Last Admin: 04/04/17 12:16 Dose: 50 mg Mirtazapine (Remeron -) 30 mg PO HS [facility] Last Admin: 04/03/17 21:11 Dose: 30 mg Morphine Sulfate (Morphine Sulfate) 2 mg IVPUSH Q4H PRN Last Admin: 04/04/17 12:14 Dose: 2 mg Ondansetron HCl (Zofran Injection) 4 mg IVPUSH Q6H PRN PRN Reason: NAUSEA AND/OR VOMITING Oxycodone HCl (Roxicodone -) 10 mg PO Q6H PRN PRN Reason: PAIN Last Admin: 04/02/17 21:19 Dose: 10 mg Pantoprazole Sodium (Protonix -) 40 mg PO DAILY [facility] Last Admin: 04/04/17 12:16 Dose: 40 mg Sevelamer Carbonate (Renvela -) 800 mg PO TIDCM [facility] Last Admin: 04/04/17 12:17 Dose: 800 mg Sodium Bicarbonate (Sodium Bicarbonate -) 1,300 mg PO BID [facility] Last Admin: 04/04/17 12:17 Dose: 1,300 mg Torsemide (Demadex -) 40 mg PO DAILY [facility] Last Admin: 04/04/17 12:16 Dose: 40 mg Trazodone HCl (Desyrel -) 300 mg PO HS [facility] Last Admin: 04/03/17 21:11 Dose: 300 mg - Objective Vital Signs: Vital Signs Temperature 98.2 F 04/04/17 12:07 Pulse Rate 89 04/04/17 12:07 Respiratory Rate 18 04/04/17 12:07 Blood Pressure 130/80 04/04/17 12:07 O2 Sat by Pulse Oximetry (%) 97 04/03/17 21:00 Constitutional: Yes: No Distress Cardiovascular: Yes: Regular Rate and Rhythm Respiratory: Yes: CTA Bilaterally Gastrointestinal: Yes: Normal Bowel Sounds, Soft Extremities: Yes: Amputation (Lt leg amputation site clean/saravanan present, no d /c or necrosis noted Rt lateral foot ulcer with mild purulent/green drainage) Labs: CBC, BMP 04/04/17 08:00 04/04/17 11:20 INR, PTT INR 1.14 (0.82-1.09) 03/18/17 17:50 Microbiology 04/01/17 19:00 Bone Gram Stain - Final 04/01/17 19:00 Bone Tissue Culture - Final NO GROWTH OF AEROBIC ORGANISMS AFTER 48 HOURS INCUBATION 04/01/17 19:00 Bone Anaerobic Culture - Final NO ANAEROBES WERE ISOLATED 04/01/17 19:00 Bone Gram Stain - Final 04/01/17 19:00 Bone Tissue Culture - Final NO GROWTH OF AEROBIC ORGANISMS AFTER 48 HOURS INCUBATION 04/01/17 19:00 Bone Anaerobic Culture - Final NO ANAEROBES WERE ISOLATED 03/30/17 12:03 Stool Clostridium difficile Antigen (CORA) - Final 03/30/17 12:03 Stool Clostridium difficile Toxin Assay - Final 03/24/17 19:40 Blood - Peripheral Venous Blood Culture - Final NO GROWTH AFTER 5 DAYS INCUBATION 03/24/17 19:40 Blood - Peripheral Venous Blood Culture - Final NO GROWTH AFTER 5 DAYS INCUBATION 03/18/17 Unknown Blood - Peripheral Venous Blood Culture - Final NO GROWTH AFTER 5 DAYS INCUBATION 03/18/17 Unknown Blood - Peripheral Venous Blood Culture - Final Beta Hem Streptococcus Group G 03/18/17 19:30 Foot - Left Gram Stain - Final 03/18/17 19:30 Foot - Left Wound Culture - Final Beta Hem Streptococcus Group G Diphtheroid/Corynebacterium Morganella Morganii 03/18/17 17:53 Urine - Urine Clean Catch Urine Culture - Final NO GROWTH OBTAINED Problem List - Problems (1) ARF (acute renal failure) Code(s): N17.9 - ACUTE KIDNEY FAILURE, UNSPECIFIED Qualifiers: Acute renal failure type: unspecified Qualified Code(s): N17.9 - Acute kidney failure, unspecified (2) Gangrene of left foot Code(s): I96 - GANGRENE, NOT ELSEWHERE CLASSIFIED (3) Syncope Code(s): R55 - SYNCOPE AND COLLAPSE Qualifiers: Syncope type: unspecified Qualified Code(s): R55 - Syncope and collapse (4) COPD with emphysema Code(s): J43.9 - EMPHYSEMA, UNSPECIFIED (5) Chronic renal insufficiency, stage IV (severe) Code(s): N18.4 - CHRONIC KIDNEY DISEASE, STAGE 4 (SEVERE) (6) Diabetic neuropathy Code(s): E11.40 - TYPE 2 DIABETES MELLITUS WITH DIABETIC NEUROPATHY, UNSP Qualifiers: Diabetes mellitus type: type 2 Diabetes mellitus complication detail: diabetic polyneuropathy Qualified Code(s): E11.42 - Type 2 diabetes mellitus with diabetic polyneuropathy (7) Foot infection Code(s): L08.9 - LOCAL INFECTION OF THE SKIN AND SUBCUTANEOUS TISSUE, UNSP (8) Neuropathy Code(s): G62.9 - POLYNEUROPATHY, UNSPECIFIED (9) S/P amputation Code(s): Z89.9 - ACQUIRED ABSENCE OF LIMB, UNSPECIFIED (10) Type 2 diabetes mellitus with foot ulcer Code(s): E11.621 - TYPE 2 DIABETES MELLITUS WITH FOOT ULCER; L97.509 - NON- PRESSURE CHRONIC ULCER OTH PRT UNSP FOOT W UNSP SEVERITY (11) Osteomyelitis of right foot Code(s): M86.9 - OSTEOMYELITIS, UNSPECIFIED Assessment/Plan Lt LE gangrene/infection s/p BKA s/p Streptococcal Bacteremia/ sepsis FROYLAN/CKD now ESRD on HD Leukocytosis Rt foot OM s/p bone biopsy/culture Diarrhea - resolved - continue monitor off antibiotics - Rt foot bone culture with no growth - wbc remains elevated - obtain wound culture from Rt lateral foot ulcer - cont wound care pt clinically stable at this time
[2017-04-04] MEDS: COLLAGENASE CLOSTRIDIUM HIST. 30 GRAMS TUBE TP SCH (16:41)
--- NOTE | 2017-04-04 20:31 | PN ---
Progress Note, Physician History of Present Illness: doing well - Current Medication List Current Medications: Active Medications Albuterol Sulfate (Ventolin 0.083% Nebulizer Soln -) 1 amp NEB Q4H PRN PRN Reason: SHORT OF BREATH/WHEEZING Amlodipine Besylate (Norvasc -) 10 mg PO DAILY [facility] Last Admin: 04/04/17 12:16 Dose: 10 mg Collagenase (Santyl -) 1 applic TP DAILY [facility] Last Admin: 04/04/17 16:41 Dose: 1 applic Doxazosin Mesylate (Cardura -) 4 mg PO DAILY [facility] Last Admin: 04/04/17 12:15 Dose: 4 mg Duloxetine HCl (Cymbalta -) 30 mg PO DAILY [facility] Last Admin: 04/04/17 12:15 Dose: 30 mg Fentanyl (Sublimaze Injection -) 25 mcg IVPUSH [id number] PRN PRN Reason: PAIN Folic Acid (Folic Acid -) 1 mg PO DAILY [facility] Last Admin: 04/04/17 12:16 Dose: 1 mg Gabapentin (Neurontin -) 100 mg PO TID [facility] Last Admin: 04/04/17 16:41 Dose: 100 mg Heparin Sodium (Porcine) (Heparin -) 5,000 unit SQ BID [facility] Last Admin: 04/04/17 10:19 Dose: Not Given Insulin Aspart (Novolog Vial Sliding Scale -) 1 vial SQ ACHS [facility] PRN Reason: Protocol Last Admin: 04/04/17 16:39 Dose: 2 units Insulin Detemir (Levemir Vial) 15 units SQ BID@0700,2200 [facility] Last Admin: 04/04/17 06:17 Dose: 15 units Metoprolol Tartrate (Lopressor -) 50 mg PO BID [facility] Last Admin: 04/04/17 12:16 Dose: 50 mg Mirtazapine (Remeron -) 30 mg PO HS [facility] Last Admin: 04/03/17 21:11 Dose: 30 mg Morphine Sulfate (Morphine Sulfate) 2 mg IVPUSH Q4H PRN Ondansetron HCl (Zofran Injection) 4 mg IVPUSH Q6H PRN PRN Reason: NAUSEA AND/OR VOMITING Pantoprazole Sodium (Protonix -) 40 mg PO DAILY [facility] Last Admin: 04/04/17 12:16 Dose: 40 mg Sevelamer Carbonate (Renvela -) 800 mg PO TIDCM [facility] Last Admin: 04/04/17 16:41 Dose: 800 mg Sodium Bicarbonate (Sodium Bicarbonate -) 1,300 mg PO BID [facility] Last Admin: 04/04/17 12:17 Dose: 1,300 mg Torsemide (Demadex -) 40 mg PO DAILY [facility] Last Admin: 04/04/17 12:16 Dose: 40 mg Trazodone HCl (Desyrel -) 300 mg PO HS [facility] Last Admin: 04/03/17 21:11 Dose: 300 mg - Objective Vital Signs: Vital Signs Temperature 98.7 F 04/04/17 18:00 Pulse Rate 81 04/04/17 18:00 Respiratory Rate 20 04/04/17 18:00 Blood Pressure 150/81 04/04/17 18:00 O2 Sat by Pulse Oximetry (%) 98 04/04/17 13:00 Constitutional: Yes: No Distress HENT: Yes: Atraumatic Neck: Yes: Supple Cardiovascular: Yes: Regular Rate and Rhythm Respiratory: Yes: CTA Bilaterally Gastrointestinal: Yes: Normal Bowel Sounds Extremities: Yes: Other (both lower ext in dressing) Neurological: Yes: Alert, Oriented Labs: CBC, BMP 04/04/17 08:00 04/04/17 11:20 INR, PTT INR 1.14 (0.82-1.09) 03/18/17 17:50 Problem List - Problems (1) ARF (acute renal failure) Assessment/Plan: on hd dr mendoza Code(s): N17.9 - ACUTE KIDNEY FAILURE, UNSPECIFIED Qualifiers: Acute renal failure type: unspecified Qualified Code(s): N17.9 - Acute kidney failure, unspecified (2) Hyperkalemia Assessment/Plan: on hd. Code(s): E87.5 - HYPERKALEMIA (3) Hyponatremia Assessment/Plan: resolved Code(s): E87.1 - HYPO-OSMOLALITY AND HYPONATREMIA (4) Syncope Assessment/Plan: resolved Code(s): R55 - SYNCOPE AND COLLAPSE Qualifiers: Syncope type: unspecified Qualified Code(s): R55 - Syncope and collapse (5) Diabetes mellitus Assessment/Plan: bgms insulin Code(s): E11.9 - TYPE 2 DIABETES MELLITUS WITHOUT COMPLICATIONS Qualifiers: Diabetes mellitus type: type 2 Diabetes mellitus complication status: without complication Diabetes mellitus penitentiary insulin use: without penitentiary use Qualified Code(s): E11.9 - Type 2 diabetes mellitus without complications (6) GERD (gastroesophageal reflux disease) Code(s): K21.9 - GASTRO-ESOPHAGEAL REFLUX DISEASE WITHOUT ESOPHAGITIS (7) HTN (hypertension) Assessment/Plan: on meds stable Code(s): I10 - ESSENTIAL (PRIMARY) HYPERTENSION Qualifiers: Hypertension type: essential hypertension Qualified Code(s): I10 - Essential (primary) hypertension (8) Type 2 diabetes mellitus with foot ulcer Assessment/Plan: s/p bka today dr armstrong s/p biopdy R foot off of abx Code(s): E11.621 - TYPE 2 DIABETES MELLITUS WITH FOOT ULCER; L97.509 - NON- PRESSURE CHRONIC ULCER OTH PRT UNSP FOOT W UNSP SEVERITY Assessment/Plan PT CAN BE DC TO SNF DR CASTILLO AND DR ARMSTRONG CAN FOLLOW UP PT IN WOUND CARE
[2017-04-04] MEDS ORDERED: traZODone HCL 50 MG TABLET (FP) ONE (21:46)
[2017-04-04] MEDS: MIRTAZAPINE 30 MG TABLET (FP) PO SCH (22:02)
[2017-04-04] MEDS: traZODone HCL 100 MG TABLET (FP) PO SCH (22:02)
[2017-04-05] MEDS: INSULIN DETEMIR 100 UNITS/ML MDV SQ SCH ×2 (06:33→22:05)
[2017-04-05] MEDS: GABAPENTIN 100 MG CAPSULE (FP) PO SCH ×3 (06:34→22:05)
[2017-04-05] MEDS ORDERED: INSULIN (NOVOLOG) ASPART 100 UNITS/ML 10ML VIAL ONE ×2 (06:35→21:55)
[2017-04-05] MEDS: INSULIN SLIDING SCALE (NOVOLOG) 1 VIAL SQ SCH ×4 (06:35→22:03)
[2017-04-05] MEDS: morphine SULFATE 4 MG/ML VIAL IVPUSH PRN ×3 (06:43→22:04)
[2017-04-05] MEDS: SEVELAMER CARBONATE 800 MG TAB (FP) PO SCH ×3 (08:15→17:09)
[2017-04-05 09:18] LABS: BASOPHIL 0.7 % (0-2.0); EOSINOPHIL 17.4 % (0-4.5); MCH 28.1 pg (25.7-33.7); MCHC 32.8 g/dl (32.0-35.9); MEAN CELL VOLUME 85.8 fl (80-96); MEAN PLT VOLUME 7.4 fl (7.5-11.1); NEUTROPHILS 62.7 % (42.8-82.8); PLATELET COUNT 405 K/MM3 (134-434); RDW 17.9 % (11.9-15.9); WHITE BLOOD COUNT 11.8 K/mm3 (4.0-10.0)
--- NOTE | 2017-04-05 10:00 | PN ---
Progress Note, Physician History of Present Illness: Pt is alert, afebrile, well . Has no new complaints. - Current Medication List Current Medications: Active Medications Albuterol Sulfate (Ventolin 0.083% Nebulizer Soln -) 1 amp NEB Q4H PRN PRN Reason: SHORT OF BREATH/WHEEZING Amlodipine Besylate (Norvasc -) 10 mg PO DAILY [facility] Last Admin: 04/04/17 12:16 Dose: 10 mg Collagenase (Santyl -) 1 applic TP DAILY [facility] Last Admin: 04/04/17 16:41 Dose: 1 applic Doxazosin Mesylate (Cardura -) 4 mg PO DAILY [facility] Last Admin: 04/04/17 12:15 Dose: 4 mg Duloxetine HCl (Cymbalta -) 30 mg PO DAILY [facility] Last Admin: 04/04/17 12:15 Dose: 30 mg Folic Acid (Folic Acid -) 1 mg PO DAILY [facility] Last Admin: 04/04/17 12:16 Dose: 1 mg Gabapentin (Neurontin -) 100 mg PO TID [facility] Last Admin: 04/05/17 06:34 Dose: 100 mg Heparin Sodium (Porcine) (Heparin -) 5,000 unit SQ BID [facility] Last Admin: 04/04/17 22:02 Dose: 5,000 unit Insulin Aspart (Novolog Vial Sliding Scale -) 1 vial SQ ACHS [facility] PRN Reason: Protocol Last Admin: 04/05/17 06:35 Dose: 2 units Insulin Detemir (Levemir Vial) 15 units SQ BID@0700,2200 [facility] Last Admin: 04/05/17 06:33 Dose: 15 units Metoprolol Tartrate (Lopressor -) 50 mg PO BID [facility] Last Admin: 04/04/17 22:02 Dose: 50 mg Mirtazapine (Remeron -) 30 mg PO HS [facility] Last Admin: 04/04/17 22:02 Dose: 30 mg Morphine Sulfate (Morphine Sulfate) 2 mg IVPUSH Q4H PRN Last Admin: 04/05/17 06:43 Dose: 2 mg Ondansetron HCl (Zofran Injection) 4 mg IVPUSH Q6H PRN PRN Reason: NAUSEA AND/OR VOMITING Pantoprazole Sodium (Protonix -) 40 mg PO DAILY [facility] Last Admin: 04/04/17 12:16 Dose: 40 mg Sevelamer Carbonate (Renvela -) 800 mg PO TIDCM [facility] Last Admin: 04/04/17 16:41 Dose: 800 mg Sodium Bicarbonate (Sodium Bicarbonate -) 1,300 mg PO BID [facility] Last Admin: 04/04/17 22:01 Dose: 1,300 mg Torsemide (Demadex -) 40 mg PO DAILY [facility] Last Admin: 04/04/17 12:16 Dose: 40 mg Trazodone HCl (Desyrel -) 300 mg PO HS [facility] Last Admin: 04/04/17 22:02 Dose: 300 mg - Objective Vital Signs: Vital Signs Temperature 98.1 F 04/05/17 06:00 Pulse Rate 82 04/05/17 06:00 Respiratory Rate 20 04/05/17 06:00 Blood Pressure 148/78 04/05/17 06:00 O2 Sat by Pulse Oximetry (%) 99 04/04/17 21:00 Constitutional: Yes: No Distress, Calm Neck: Yes: Supple Cardiovascular: Yes: Regular Rate and Rhythm Respiratory: Yes: CTA Bilaterally Gastrointestinal: Yes: Normal Bowel Sounds, Soft Musculoskeletal: Yes: WNL Extremities: Yes: Amputation (LLE amp site with saravanan, no erythema/drainage, Rt foot dry) Wound/Incision: Yes: Dressing Dry and Intact Neurological: Yes: Alert Labs: CBC, BMP 04/05/17 08:00 04/04/17 11:20 INR, PTT INR 1.14 (0.82-1.09) 03/18/17 17:50 Problem List - Problems (1) ARF (acute renal failure) Code(s): N17.9 - ACUTE KIDNEY FAILURE, UNSPECIFIED Qualifiers: Acute renal failure type: unspecified Qualified Code(s): N17.9 - Acute kidney failure, unspecified (2) Gangrene of left foot Code(s): I96 - GANGRENE, NOT ELSEWHERE CLASSIFIED (3) Syncope Code(s): R55 - SYNCOPE AND COLLAPSE Qualifiers: Syncope type: unspecified Qualified Code(s): R55 - Syncope and collapse (4) COPD with emphysema Code(s): J43.9 - EMPHYSEMA, UNSPECIFIED (5) Chronic renal insufficiency, stage IV (severe) Code(s): N18.4 - CHRONIC KIDNEY DISEASE, STAGE 4 (SEVERE) (6) Diabetic neuropathy Code(s): E11.40 - TYPE 2 DIABETES MELLITUS WITH DIABETIC NEUROPATHY, UNSP Qualifiers: Diabetes mellitus type: type 2 Diabetes mellitus complication detail: diabetic polyneuropathy Qualified Code(s): E11.42 - Type 2 diabetes mellitus with diabetic polyneuropathy (7) Foot infection Code(s): L08.9 - LOCAL INFECTION OF THE SKIN AND SUBCUTANEOUS TISSUE, UNSP (8) Neuropathy Code(s): G62.9 - POLYNEUROPATHY, UNSPECIFIED (9) S/P amputation Code(s): Z89.9 - ACQUIRED ABSENCE OF LIMB, UNSPECIFIED (10) Type 2 diabetes mellitus with foot ulcer Code(s): E11.621 - TYPE 2 DIABETES MELLITUS WITH FOOT ULCER; L97.509 - NON- PRESSURE CHRONIC ULCER OTH PRT UNSP FOOT W UNSP SEVERITY (11) Osteomyelitis of right foot Code(s): M86.9 - OSTEOMYELITIS, UNSPECIFIED Assessment/Plan Lt LE gangrene/infection s/p BKA s/p Streptococcal Bacteremia/ sepsis FROYLAN/CKD now ESRD on HD Rt foot s/p bone biopsy/culture - no growth - stable off antibiotics - wbc almost normal, remains afebrile - cont wound care - f/u with Dr Galvan pt clinically stable
[2017-04-05] MEDS: TORSEMIDE 20 MG TABLET (FP) PO SCH (10:56)
[2017-04-05] MEDS: PANTOPRAZOLE 40 MG TABLET (FP) PO SCH (10:56)
[2017-04-05] MEDS: METOPROLOL TARTRATE 50 MG TABLET (FP) PO SCH ×2 (10:56→22:05)
[2017-04-05] MEDS: amLODIPine BESYLATE 10 MG TABLET (FP) PO SCH (10:56)
[2017-04-05] MEDS: DULoxetine HCL 30 MG CAPSULE.DR (FP) PO SCH (10:56)
[2017-04-05] MEDS: SODIUM BICARBONATE 650 MG TABLET PO SCH ×2 (10:57→22:05)
[2017-04-05] MEDS: DOXAZOSIN MESYLATE 4 MG TABLET PO SCH (10:57)
[2017-04-05] MEDS: FOLIC ACID 1 MG TABLET (FP) PO SCH (10:57)
[2017-04-05] MEDS: HEPARIN NA (PORCINE) 5,000 UNITS/ML 1ML VIAL SQ SCH ×2 (10:58→22:05)
--- NOTE | 2017-04-05 11:50 | PN ---
Progress Note (short form) - Note Progress Note: Concern for the possible positive MRI findings of osteomyelitis of the fifth ray of the right foot. Bone culture negative but + pathology for osteomyelitis. Asked Microbiology to reincubate (EMR will note previous findings of final with no juliano but will be updated in 5 days should there be any growth).
--- NOTE | 2017-04-05 13:54 | PN ---
Progress Note (short form) - Note Progress Note: Renal Follow up for FROYLAN on CKD Pt seen and examined at the bedside has a mild PEREZ and pain at the amputation site no sob, chest pain Vital Signs Temperature 98.1 F 04/05/17 06:00 Pulse Rate 88 04/05/17 10:00 Respiratory Rate 20 04/05/17 10:00 Blood Pressure 138/80 04/05/17 10:00 O2 Sat by Pulse Oximetry (%) 99 04/04/17 21:00 Intake & Output 04/02/17 04/03/17 04/04/17 04/05/17 23:59 23:59 23:59 23:59 Intake Total 1650 1400 1750 Output Total 800 2100 2200 Balance 850 -700 -450 Weight 98.089 kg 98.997 kg 98.997 kg 98.43 kg NAD awake and alert RRR Dec Bs at lung bases, no rales soft NT/ND CBC, BMP 04/05/17 08:00 04/04/17 11:20 Current Medications Albuterol Sulfate (Ventolin 0.083% Nebulizer Soln -) 1 amp NEB Q4H PRN PRN Reason: SHORT OF BREATH/WHEEZING Amlodipine Besylate (Norvasc -) 10 mg PO DAILY [facility] Last Admin: 04/05/17 10:56 Dose: 10 mg Collagenase (Santyl -) 1 applic TP DAILY [facility] Last Admin: 04/04/17 16:41 Dose: 1 applic Doxazosin Mesylate (Cardura -) 4 mg PO DAILY [facility] Last Admin: 04/05/17 10:57 Dose: 4 mg Duloxetine HCl (Cymbalta -) 30 mg PO DAILY [facility] Last Admin: 04/05/17 10:56 Dose: 30 mg Folic Acid (Folic Acid -) 1 mg PO DAILY [facility] Last Admin: 04/05/17 10:57 Dose: 1 mg Gabapentin (Neurontin -) 100 mg PO TID [facility] Last Admin: 04/05/17 06:34 Dose: 100 mg Heparin Sodium (Porcine) (Heparin -) 5,000 unit SQ BID [facility] Last Admin: 04/05/17 10:58 Dose: 5,000 unit Insulin Aspart (Novolog Vial Sliding Scale -) 1 vial SQ ACHS [facility] PRN Reason: Protocol Last Admin: 04/05/17 12:12 Dose: Not Given Insulin Detemir (Levemir Vial) 15 units SQ BID@0700,2200 [facility] Last Admin: 04/05/17 06:33 Dose: 15 units Metoprolol Tartrate (Lopressor -) 50 mg PO BID [facility] Last Admin: 04/05/17 10:56 Dose: 50 mg Mirtazapine (Remeron -) 30 mg PO HS [facility] Last Admin: 04/04/17 22:02 Dose: 30 mg Morphine Sulfate (Morphine Sulfate) 2 mg IVPUSH Q4H PRN Last Admin: 04/05/17 11:08 Dose: 2 mg Ondansetron HCl (Zofran Injection) 4 mg IVPUSH Q6H PRN PRN Reason: NAUSEA AND/OR VOMITING Pantoprazole Sodium (Protonix -) 40 mg PO DAILY [facility] Last Admin: 04/05/17 10:56 Dose: 40 mg Sevelamer Carbonate (Renvela -) 800 mg PO TIDCM [facility] Last Admin: 04/05/17 08:15 Dose: 800 mg Sodium Bicarbonate (Sodium Bicarbonate -) 1,300 mg PO BID [facility] Last Admin: 04/05/17 10:57 Dose: 1,300 mg Torsemide (Demadex -) 40 mg PO DAILY [facility] Last Admin: 04/05/17 10:56 Dose: 40 mg Trazodone HCl (Desyrel -) 300 mg PO [facility] Last Admin: 04/04/17 22:02 Dose: 300 mg 61 year old gentleman with PMhx of CKD stage 4 (baseline Cr 2.8), Hypertension , DM, PVD, Depression who presented with syncope and found to have acute on chronic renal failure with hyperkalemia and hyponatremia. #Acute Renal Failure now with ESRD on HD no acute indication for dialysis today next treatment planned for tomorrow outpatient HD unit placement pending #Leukocytosis/Sepsis/infected LE wound holding antibiotics pending bone biopsy result ID following #Acute on Chronic anemia continue high dose ADRIAN with HD Miguel Jansen DO Problem List - Problems (1) Hyponatremia Code(s): E87.1 - HYPO-OSMOLALITY AND HYPONATREMIA (2) ARF (acute renal failure) Code(s): N17.9 - ACUTE KIDNEY FAILURE, UNSPECIFIED Qualifiers: Acute renal failure type: unspecified Qualified Code(s): N17.9 - Acute kidney failure, unspecified (3) Hyperkalemia Code(s): E87.5 - HYPERKALEMIA (4) Syncope Code(s): R55 - SYNCOPE AND COLLAPSE Qualifiers: Syncope type: unspecified Qualified Code(s): R55 - Syncope and collapse (5) FROYLAN (acute kidney injury) Code(s): N17.9 - ACUTE KIDNEY FAILURE, UNSPECIFIED
[2017-04-05] MEDS: COLLAGENASE CLOSTRIDIUM HIST. 30 GRAMS TUBE TP SCH (15:40)
--- NOTE | 2017-04-05 20:30 | PN ---
Progress Note, Physician History of Present Illness: doing well - Current Medication List Current Medications: Active Medications Albuterol Sulfate (Ventolin 0.083% Nebulizer Soln -) 1 amp NEB Q4H PRN PRN Reason: SHORT OF BREATH/WHEEZING Amlodipine Besylate (Norvasc -) 10 mg PO DAILY [facility] Last Admin: 04/05/17 10:56 Dose: 10 mg Collagenase (Santyl -) 1 applic TP DAILY [facility] Last Admin: 04/05/17 15:40 Dose: 1 applic Doxazosin Mesylate (Cardura -) 4 mg PO DAILY [facility] Last Admin: 04/05/17 10:57 Dose: 4 mg Duloxetine HCl (Cymbalta -) 30 mg PO DAILY [facility] Last Admin: 04/05/17 10:56 Dose: 30 mg Epoetin Joe (Epogen -) 20,000 units IVPUSH ONCE ONE Stop: 04/06/17 06:01 Folic Acid (Folic Acid -) 1 mg PO DAILY [facility] Last Admin: 04/05/17 10:57 Dose: 1 mg Gabapentin (Neurontin -) 100 mg PO TID [facility] Last Admin: 04/05/17 14:39 Dose: 100 mg Heparin Sodium (Porcine) (Heparin -) 5,000 unit SQ BID [facility] Last Admin: 04/05/17 10:58 Dose: 5,000 unit Insulin Aspart (Novolog Vial Sliding Scale -) 1 vial SQ ACHS [facility] PRN Reason: Protocol Last Admin: 04/05/17 17:09 Dose: 4 units Insulin Detemir (Levemir Vial) 15 units SQ BID@0700,2200 [facility] Last Admin: 04/05/17 06:33 Dose: 15 units Metoprolol Tartrate (Lopressor -) 50 mg PO BID [facility] Last Admin: 04/05/17 10:56 Dose: 50 mg Mirtazapine (Remeron -) 30 mg PO HS [facility] Last Admin: 04/04/17 22:02 Dose: 30 mg Morphine Sulfate (Morphine Sulfate) 2 mg IVPUSH Q4H PRN Last Admin: 04/05/17 11:08 Dose: 2 mg Ondansetron HCl (Zofran Injection) 4 mg IVPUSH Q6H PRN PRN Reason: NAUSEA AND/OR VOMITING Pantoprazole Sodium (Protonix -) 40 mg PO DAILY [facility] Last Admin: 12/08/17 10:56 Dose: 40 mg Sevelamer Carbonate (Renvela -) 800 mg PO TIDCM [facility] Last Admin: 04/05/17 17:09 Dose: 800 mg Sodium Bicarbonate (Sodium Bicarbonate -) 1,300 mg PO BID [facility] Last Admin: 04/05/17 10:57 Dose: 1,300 mg Torsemide (Demadex -) 40 mg PO DAILY [facility] Last Admin: 04/05/17 10:56 Dose: 40 mg Trazodone HCl (Desyrel -) 300 mg PO HS [facility] Last Admin: 04/04/17 22:02 Dose: 300 mg - Objective Vital Signs: Vital Signs Temperature 97.8 F 04/05/17 14:00 Pulse Rate 82 04/05/17 14:00 Respiratory Rate 20 04/05/17 14:00 Blood Pressure 141/86 04/05/17 14:00 O2 Sat by Pulse Oximetry (%) 99 04/04/17 21:00 Constitutional: Yes: No Distress HENT: Yes: Atraumatic Neck: Yes: Supple Cardiovascular: Yes: Regular Rate and Rhythm Respiratory: Yes: Regular, CTA Bilaterally Gastrointestinal: Yes: Normal Bowel Sounds Extremities: Yes: Other (left bka) Neurological: Yes: Alert, Oriented Labs: CBC, BMP 04/05/17 08:00 04/04/17 11:20 INR, PTT INR 1.14 (0.82-1.09) 03/18/17 17:50 Problem List - Problems (1) ARF (acute renal failure) Assessment/Plan: on hd dr mendoza Code(s): N17.9 - ACUTE KIDNEY FAILURE, UNSPECIFIED Qualifiers: Acute renal failure type: unspecified Qualified Code(s): N17.9 - Acute kidney failure, unspecified (2) Hyperkalemia Assessment/Plan: on hd. Code(s): E87.5 - HYPERKALEMIA (3) Hyponatremia Assessment/Plan: resolved Code(s): E87.1 - HYPO-OSMOLALITY AND HYPONATREMIA (4) Syncope Assessment/Plan: resolved Code(s): R55 - SYNCOPE AND COLLAPSE Qualifiers: Syncope type: unspecified Qualified Code(s): R55 - Syncope and collapse (5) Diabetes mellitus Assessment/Plan: [facility] [place] insulin Code(s): E11.9 - TYPE 2 DIABETES MELLITUS WITHOUT COMPLICATIONS Qualifiers: Diabetes mellitus type: type 2 Diabetes mellitus complication status: without complication Diabetes mellitus piano accompanist insulin use: without shelter use Qualified Code(s): E11.9 - Type 2 diabetes mellitus without complications (6) GERD (gastroesophageal reflux disease) Code(s): K21.9 - GASTRO-ESOPHAGEAL REFLUX DISEASE WITHOUT ESOPHAGITIS (7) HTN (hypertension) Assessment/Plan: on meds stable Code(s): I10 - ESSENTIAL (PRIMARY) HYPERTENSION Qualifiers: Hypertension type: essential hypertension Qualified Code(s): I10 - Essential (primary) hypertension (8) Type 2 diabetes mellitus with foot ulcer Assessment/Plan: s/p bka L Code(s): E11.621 - TYPE 2 DIABETES MELLITUS WITH FOOT ULCER; L97.509 - NON- PRESSURE CHRONIC ULCER OTH PRT UNSP FOOT W UNSP SEVERITY
[2017-04-05] MEDS: ALBUTEROL SO4 0.083% IH SOL 2.5 MG/3 ML VIAL.NEB. NEB PRN (21:00)
[2017-04-05] MEDS ORDERED: traZODone HCL 50 MG TABLET (FP) ONE (21:54)
[2017-04-05] MEDS: MIRTAZAPINE 30 MG TABLET (FP) PO SCH (22:05)
[2017-04-05] MEDS: traZODone HCL 100 MG TABLET (FP) PO SCH (22:06)
[2017-04-06] MEDS: INSULIN SLIDING SCALE (NOVOLOG) 1 VIAL SQ SCH ×4 (06:09→22:36)
[2017-04-06] MEDS: GABAPENTIN 100 MG CAPSULE (FP) PO SCH ×3 (06:09→22:37)
[2017-04-06] MEDS: INSULIN DETEMIR 100 UNITS/ML MDV SQ SCH ×2 (06:09→22:37)
[2017-04-06] MEDS ORDERED: INSULIN (NOVOLOG) ASPART 100 UNITS/ML 10ML VIAL ONE (06:22)
[2017-04-06] MEDS: SEVELAMER CARBONATE 800 MG TAB (FP) PO SCH ×3 (08:50→18:18)
[2017-04-06] MEDS ORDERED: EPOETIN ALFA 20,000 UNIT/1 ML VIAL IVPUSH ONE (09:00)
[2017-04-06 09:14] LABS: MCH 28.3 pg (25.7-33.7); MCHC 32.5 g/dl (32.0-35.9); MEAN CELL VOLUME 87.1 fl (80-96); MEAN PLT VOLUME 7.5 fl (7.5-11.1); PLATELET COUNT 399 K/MM3 (134-434); RDW 17.9 % (11.9-15.9); WHITE BLOOD COUNT 11.4 K/mm3 (4.0-10.0)
[2017-04-06 09:54] LABS: ANION GAP 8 (8-16); CALCIUM 7.3 mg/dL (8.5-10.1); CO2 30 mmol/L (21-32); CREATININE 3.4 mg/dL (0.7-1.3); GLUCOSE,RANDOM 174 mg/dL (74-106); PHOSPHOROUS 3.4 mg/dL (2.5-4.9)
[2017-04-06 10:47] LABS: ANISOCYTOSIS 1+; HYPOCHROMIA 2+; MICROCYTOSIS 1+; PLATELET ESTIMATE INCREASED; POLYCHROMASIA 1+; TOTAL CELLS COUNTED 100
[2017-04-06 10:48] LABS: PLATELET COMMENTS NO CLUMPING NOTED
--- NOTE | 2017-04-06 11:04 | PN ---
Progress Note (short form) - Note Progress Note: Renal Follow up for FROYLAN on CKD Pt seen and examined at the bedside has mild PEREZ no chest pain or sob for dialysis today Vital Signs Temperature 99.6 F 04/06/17 06:17 Pulse Rate 85 04/06/17 06:17 Respiratory Rate 18 04/06/17 06:17 Blood Pressure 149/86 04/06/17 06:17 O2 Sat by Pulse Oximetry (%) 96 04/05/17 21:00 Intake & Output 04/03/17 04/04/17 04/05/17 04/06/17 23:59 23:59 23:59 23:59 Intake Total 1400 1750 1700 Output Total 2100 2200 2200 1000 Balance -700 -450 -500 -1000 Weight 98.997 kg 98.997 kg 98.43 kg 98.486 kg NAD awake and alert RRR Dec Bs at lung bases, no rales soft NT/ND CBC, BMP 04/06/17 08:50 04/06/17 08:50 Current Medications Albuterol Sulfate (Ventolin 0.083% Nebulizer Soln -) 1 amp NEB Q4H PRN PRN Reason: SHORT OF BREATH/WHEEZING Last Admin: 04/05/17 21:00 Dose: 1 amp Amlodipine Besylate (Norvasc -) 10 mg PO DAILY [facility] Last Admin: 04/05/17 10:56 Dose: 10 mg Collagenase (Santyl -) 1 applic TP DAILY [facility] Last Admin: 04/05/17 15:40 Dose: 1 applic Doxazosin Mesylate (Cardura -) 4 mg PO DAILY [facility] Last Admin: 04/05/17 10:57 Dose: 4 mg Duloxetine HCl (Cymbalta -) 30 mg PO DAILY [facility] Last Admin: 04/05/17 10:56 Dose: 30 mg Folic Acid (Folic Acid -) 1 mg PO DAILY [facility] Last Admin: 04/05/17 10:57 Dose: 1 mg Gabapentin (Neurontin -) 100 mg PO TID [facility] Last Admin: 04/06/17 06:09 Dose: 100 mg Heparin Sodium (Porcine) (Heparin -) 5,000 unit SQ BID [facility] Last Admin: 04/05/17 22:05 Dose: 5,000 unit Insulin Aspart (Novolog Vial Sliding Scale -) 1 vial SQ ACHS [facility] PRN Reason: Protocol Last Admin: 04/06/17 06:09 Dose: Not Given Insulin Detemir (Levemir Vial) 15 units SQ BID@0700,2200 [facility] Last Admin: 04/06/17 06:09 Dose: 15 units Metoprolol Tartrate (Lopressor -) 50 mg PO BID [facility] Last Admin: 04/05/17 22:05 Dose: 50 mg Mirtazapine (Remeron -) 30 mg PO [facility] Last Admin: 04/05/17 22:05 Dose: 30 mg Morphine Sulfate (Morphine Sulfate) 2 mg IVPUSH Q4H PRN Last Admin: 04/05/17 22:04 Dose: 2 mg Ondansetron HCl (Zofran Injection) 4 mg IVPUSH Q6H PRN PRN Reason: NAUSEA AND/OR VOMITING Pantoprazole Sodium (Protonix -) 40 mg PO DAILY [facility] Last Admin: 04/05/17 10:56 Dose: 40 mg Sevelamer Carbonate (Renvela -) 800 mg PO TIDCM [facility] Last Admin: 04/06/17 08:50 Dose: Not Given Sodium Bicarbonate (Sodium Bicarbonate -) 1,300 mg PO BID [facility] Last Admin: 04/05/17 22:05 Dose: 1,300 mg Torsemide (Demadex -) 40 mg PO DAILY [facility] Last Admin: 04/05/17 10:56 Dose: 40 mg Trazodone HCl (Desyrel -) 300 mg PO [facility] Last Admin: 04/05/17 22:06 Dose: 300 mg 61 year old gentleman with PMhx of CKD stage 4 (baseline Cr 2.8), Hypertension , DM, PVD, Depression who presented with syncope and found to have acute on chronic renal failure with hyperkalemia and hyponatremia. #Acute Renal Failure now with ESRD on HD dialysis today as inpatient UF as tolerated outpatient placement pending #Leukocytosis/Sepsis/infected LE wound Bone biopsy final result pending will await final result to determine need for Abx ID and podiatry following #Acute on Chronic anemia continue high dose ADRIAN with HD Miguel Jansen DO Problem List - Problems (1) Hyponatremia Code(s): E87.1 - HYPO-OSMOLALITY AND HYPONATREMIA (2) ARF (acute renal failure) Code(s): N17.9 - ACUTE KIDNEY FAILURE, UNSPECIFIED Qualifiers: Acute renal failure type: unspecified Qualified Code(s): N17.9 - Acute kidney failure, unspecified (3) Hyperkalemia Code(s): E87.5 - HYPERKALEMIA (4) Syncope Code(s): R55 - SYNCOPE AND COLLAPSE Qualifiers: Syncope type: unspecified Qualified Code(s): R55 - Syncope and collapse (5) FROYLAN (acute kidney injury) Code(s): N17.9 - ACUTE KIDNEY FAILURE, UNSPECIFIED
[2017-04-06] MEDS: COLLAGENASE CLOSTRIDIUM HIST. 30 GRAMS TUBE TP SCH (11:30)
--- NOTE | 2017-04-06 13:14 | DS ---
Physical Examination Vital Signs: Vital Signs Temperature 98.4 F 04/06/17 08:45 Pulse Rate 82 04/06/17 12:21 Respiratory Rate 18 04/06/17 12:21 Blood Pressure 154/70 04/06/17 12:21 O2 Sat by Pulse Oximetry (%) 96 04/05/17 21:00 Constitutional: Yes: No Distress HENT: Yes: Atraumatic Neck: Yes: Supple Cardiovascular: Yes: Regular Rate and Rhythm Respiratory: Yes: CTA Bilaterally Gastrointestinal: Yes: Normal Bowel Sounds Extremities: Yes: WNL, Other (r foot and left llex in dressing) Neurological: Yes: Alert, Oriented Labs: CBC, BMP 04/06/17 08:50 04/06/17 08:50 Discharge Summary Reason For Visit: ACUTE KIDNEY INJURY, SYNCOPE, HYPERKALEMIA Current Active Problems ARF (acute renal failure) (Acute) Gangrene of left foot (Acute) Hyperkalemia (Acute) Hyponatremia (Acute) Osteomyelitis of right foot (Acute) Syncope (Acute) Condition: Guarded - Instructions Diet, Activity, Other Instructions: wound care, dressing change daily Referrals: Dr. Aroldo Galvan [Other] [facility] [Other] Al Vegas MD [Staff Physician] - - Home Medications Comprehensive Discharge Medication List: Ambulatory Orders Amlodipine Besylate [Norvasc -] 10 mg PO DAILY 11/07/14 Ascorbate Calcium [Vitamin C] 500 mg PO DAILY 11/07/14 Ferrous Sulfate [Feosol] 325 mg PO DAILY 11/07/14 Folic Acid - 1 mg PO DAILY 11/07/14 Trazodone HCl 300 mg PO HS 11/07/14 Mirtazapine [Remeron -] 30 mg PO HS 08/19/16 Albuterol 0.083% Nebulizer Coretta [Ventolin 0.083% Nebulizer Soln -] 1 amp NEB Q4H PRN #0 amp 09/12/16 Metoprolol Tartrate [Lopressor -] 50 mg PO BID tablet 09/12/16 Furosemide [Lasix -] 80 mg PO DAILY #30 tablet 10/24/16 Sodium Bicarbonate 325 mg PO BID 11/21/16 Oxycodone HCl [Roxicodone -] 5 mg PO QID #120 tablet MDD 4 03/07/17 Doxazosin Mesylate [Cardura] 4 mg PO DAILY 03/18/17 Duloxetine HCl 30 mg PO DAILY 03/18/17 Ergocalciferol (Vitamin D2) [Vitamin D2] 50,000 unit PO WEEKLY 03/18/17 Insulin (Levemir) [Levemir Flexpen -] 15 units SQ HS 03/18/17 Insulin Aspart [Novolog Flexpen] 0 unit SQ ASDIR 03/18/17 [facility] [address] vegas had spoken to patient pt does not want to go to [facility] seems like he will leave on saturday to [facility] of his choice
[2017-04-06] MEDS ORDERED: PT OWN MED DRAWER 7, Y5N ONE (13:54)
[2017-04-06] MEDS: SODIUM BICARBONATE 650 MG TABLET PO SCH ×2 (14:04→22:37)
[2017-04-06] MEDS: DOXAZOSIN MESYLATE 4 MG TABLET PO SCH (14:05)
[2017-04-06] MEDS: PANTOPRAZOLE 40 MG TABLET (FP) PO SCH (14:05)
[2017-04-06] MEDS: TORSEMIDE 20 MG TABLET (FP) PO SCH (14:06)
[2017-04-06] MEDS: HEPARIN NA (PORCINE) 5,000 UNITS/ML 1ML VIAL SQ SCH ×2 (14:06→22:37)
[2017-04-06] MEDS: FOLIC ACID 1 MG TABLET (FP) PO SCH (14:06)
[2017-04-06] MEDS: amLODIPine BESYLATE 10 MG TABLET (FP) PO SCH (14:07)
[2017-04-06] MEDS: METOPROLOL TARTRATE 50 MG TABLET (FP) PO SCH ×2 (14:07→22:37)
[2017-04-06] MEDS: DULoxetine HCL 30 MG CAPSULE.DR (FP) PO SCH (14:09)
[2017-04-06] MEDS: morphine SULFATE 4 MG/ML VIAL IVPUSH PRN ×2 (14:30→18:16)
[2017-04-06] MEDS: ALBUTEROL SO4 0.083% IH SOL 2.5 MG/3 ML VIAL.NEB. NEB PRN (17:20)
[2017-04-06] MEDS ORDERED: traZODone HCL 50 MG TABLET (FP) ONE (21:37)
[2017-04-06] MEDS: MIRTAZAPINE 30 MG TABLET (FP) PO SCH (22:36)
[2017-04-06] MEDS: traZODone HCL 100 MG TABLET (FP) PO SCH (22:38)
[2017-04-07] MEDS: INSULIN DETEMIR 100 UNITS/ML MDV SQ SCH ×2 (07:00→21:56)
[2017-04-07] MEDS: GABAPENTIN 100 MG CAPSULE (FP) PO SCH ×3 (07:00→21:56)
[2017-04-07] MEDS: INSULIN SLIDING SCALE (NOVOLOG) 1 VIAL SQ SCH ×4 (07:00→21:56)
[2017-04-07] MEDS: SEVELAMER CARBONATE 800 MG TAB (FP) PO SCH ×3 (08:50→17:09)
[2017-04-07] MEDS ORDERED: PT OWN MED DRAWER 7, Y5N ONE (11:06)
[2017-04-07] MEDS: DULoxetine HCL 30 MG CAPSULE.DR (FP) PO SCH (11:11)
[2017-04-07] MEDS: METOPROLOL TARTRATE 50 MG TABLET (FP) PO SCH ×2 (11:12→21:55)
[2017-04-07] MEDS: TORSEMIDE 20 MG TABLET (FP) PO SCH (11:12)
[2017-04-07] MEDS: SODIUM BICARBONATE 650 MG TABLET PO SCH ×2 (11:12→21:55)
[2017-04-07] MEDS: amLODIPine BESYLATE 10 MG TABLET (FP) PO SCH (11:12)
[2017-04-07] MEDS: PANTOPRAZOLE 40 MG TABLET (FP) PO SCH (11:12)
[2017-04-07] MEDS: HEPARIN NA (PORCINE) 5,000 UNITS/ML 1ML VIAL SQ SCH ×2 (11:13→21:56)
[2017-04-07] MEDS: FOLIC ACID 1 MG TABLET (FP) PO SCH (11:13)
[2017-04-07] MEDS: DOXAZOSIN MESYLATE 4 MG TABLET PO SCH (11:14)
[2017-04-07] MEDS: morphine SULFATE 4 MG/ML VIAL IVPUSH PRN (11:43)
[2017-04-07] MEDS: COLLAGENASE CLOSTRIDIUM HIST. 30 GRAMS TUBE TP SCH (11:46)
--- NOTE | 2017-04-07 13:17 | PN ---
Progress Note, Physician Chief Complaint: s/p right foot bone biopsy, Incision and drainage left foot and above ankle resection pending formal transtibial resection as well as a 5th metatarsal ulceration contralaterally (right foot) Positive MRI strongly suugeestive of osteomyelitis of the 5th right MTPJ History of Present Illness: s/p right foot bone biopsy, Incision and drainage left foot and above ankle resection pending formal transtibial resection as well as a 5th metatarsal ulceration contralaterally (right foot) Positive MRI strongly suugeestive of osteomyelitis of the 5th right MTPJ - Current Medication List Current Medications: Active Medications Amlodipine Besylate (Norvasc -) 10 mg PO DAILY [facility] Last Admin: 04/07/17 11:12 Dose: 10 mg Collagenase (Santyl -) 1 applic TP DAILY [facility] Last Admin: 04/07/17 11:46 Dose: Not Given Doxazosin Mesylate (Cardura -) 4 mg PO DAILY [facility] Last Admin: 04/07/17 11:14 Dose: 4 mg Duloxetine HCl (Cymbalta -) 30 mg PO DAILY [facility] Last Admin: 04/07/17 11:11 Dose: 30 mg Folic Acid (Folic Acid -) 1 mg PO DAILY [facility] Last Admin: 04/07/17 11:13 Dose: 1 mg Gabapentin (Neurontin -) 100 mg PO TID [facility] Last Admin: 04/07/17 07:00 Dose: 100 mg Heparin Sodium (Porcine) (Heparin -) 5,000 unit SQ BID [facility] Last Admin: 04/07/17 11:13 Dose: 5,000 unit Insulin Aspart (Novolog Vial Sliding Scale -) 1 vial SQ ACHS [facility] PRN Reason: Protocol Last Admin: 04/07/17 11:51 Dose: Not Given Insulin Detemir (Levemir Vial) 15 units SQ BID@0700,2200 [facility] Last Admin: 04/07/17 07:00 Dose: Not Given Metoprolol Tartrate (Lopressor -) 50 mg PO BID [facility] Last Admin: 04/07/17 11:12 Dose: 50 mg Mirtazapine (Remeron -) 30 mg PO HS [facility] Last Admin: 04/06/17 22:36 Dose: 30 mg Morphine Sulfate (Morphine Sulfate) 2 mg IVPUSH Q4H PRN Last Admin: 04/07/17 11:43 Dose: 2 mg Ondansetron HCl (Zofran Injection) 4 mg IVPUSH Q6H PRN PRN Reason: NAUSEA AND/OR VOMITING Pantoprazole Sodium (Protonix -) 40 mg PO DAILY [facility] Last Admin: 04/07/17 11:12 Dose: 40 mg Sevelamer Carbonate (Renvela -) 800 mg PO TIDCM [facility] Last Admin: 04/07/17 11:57 Dose: 800 mg Sodium Bicarbonate (Sodium Bicarbonate -) 1,300 mg PO BID [facility] Last Admin: 04/07/17 11:12 Dose: 1,300 mg Torsemide (Demadex -) 40 mg PO DAILY [facility] Last Admin: 04/07/17 11:12 Dose: 40 mg Trazodone HCl (Desyrel -) 300 mg PO HS [facility] Last Admin: 04/06/17 22:38 Dose: 300 mg - Objective Vital Signs: Vital Signs Temperature 36.6 C 04/07/17 09:09 Pulse Rate 90 04/07/17 09:09 Respiratory Rate 19 04/07/17 09:09 Blood Pressure 140/81 04/07/17 09:09 O2 Sat by Pulse Oximetry (%) 98 04/07/17 09:09 Constitutional: Yes: Mild Distress Extremities: Yes: Other (LLE AMPUTATION ulcer right foot) Edema: Yes Edema: LLE: 1+, RLE: 2+ Peripheral Pulses: Right Dorsalis Pedis: 1+ Integumentary: Yes: Incision, Laceration (post debridement 2.6 X 1.9 cm) Wound/Incision: Yes: Dressing Dry and Intact, Dressing Removed, Reddened, Bleeding, Unapproximated Neurological: Yes: Paresthesia, Tingling, Weakness ...Motor Strength: WNL Additional Findings/Remarks: The patient is ready for discharge. He prefers to be at the [facility] facility known [facility] rather than the [facility] facility on the [facility] in [place]. Patient understands that the former box does not have capability for hemodialysis since he is now end stage renal disease. Performed a bedside debridement of the sub metatarsal head five ulceration on the right foot. This was performed to the subcutaneous tissue including removing vital tissue . The wound is much better granulated but there is still some necrosis and would continue enzymatic debridement with the Santyl at this time. This evaluation and management is due to the underlying illness on the right foot of probable osteomyelitis. Have been in communication with the microbiology service who at this examiner's request has re- incubated the culture for an additional 72 hours. The findings of the pathologist is that there was osteomyelitis but the 48 hour growth revealed no growth of either aerobes or anaerobics. This is quite an unusual phenomenon as it usually is the other way around if both are not positive for osteomyelitis when indeed osteomyelitis exists. Explained the results fully to the patient and will plan on bringing patient into hyperbarics at [facility] once he is discharged and settled in the [facility] facility whatever that maybe. Total time spent on this situation with the possible osteomyelitis on the morgan exclamation to the patient discussion with the nursing staff and discussion with social service exceeded 45 minutes Labs: CBC, BMP 04/06/17 08:50 04/06/17 08:50 INR, PTT INR 1.14 (0.82-1.09) 03/18/17 17:50 - ....Imaging X-ray: Report Reviewed, Image Reviewed MRI: Report Reviewed, Image Reviewed Other: Pending (Oseous culture re-incubated -extensive discussion with microbiology)
--- NOTE | 2017-04-07 15:47 | PN ---
Progress Note, Physician History of Present Illness: no complaints - Current Medication List Current Medications: Active Medications Amlodipine Besylate (Norvasc -) 10 mg PO DAILY [facility] Last Admin: 04/07/17 11:12 Dose: 10 mg Collagenase (Santyl -) 1 applic TP DAILY [facility] Last Admin: 04/07/17 11:46 Dose: Not Given Doxazosin Mesylate (Cardura -) 4 mg PO DAILY [facility] Last Admin: 04/07/17 11:14 Dose: 4 mg Duloxetine HCl (Cymbalta -) 30 mg PO DAILY [facility] Last Admin: 04/07/17 11:11 Dose: 30 mg Folic Acid (Folic Acid -) 1 mg PO DAILY [facility] Last Admin: 04/07/17 11:13 Dose: 1 mg Gabapentin (Neurontin -) 100 mg PO TID [facility] Last Admin: 04/07/17 14:36 Dose: 100 mg Heparin Sodium (Porcine) (Heparin -) 5,000 unit SQ BID [facility] Last Admin: 04/07/17 11:13 Dose: 5,000 unit Insulin Aspart (Novolog Vial Sliding Scale -) 1 vial SQ ACHS [facility] PRN Reason: Protocol Last Admin: 04/07/17 11:51 Dose: Not Given Insulin Detemir (Levemir Vial) 15 units SQ BID@0700,2200 [facility] Last Admin: 04/07/17 07:00 Dose: Not Given Metoprolol Tartrate (Lopressor -) 50 mg PO BID [facility] Last Admin: 04/07/17 11:12 Dose: 50 mg Mirtazapine (Remeron -) 30 mg PO HS [facility] Last Admin: 04/06/17 22:36 Dose: 30 mg Morphine Sulfate (Morphine Sulfate) 2 mg IVPUSH Q4H PRN Last Admin: 04/07/17 11:43 Dose: 2 mg Ondansetron HCl (Zofran Injection) 4 mg IVPUSH Q6H PRN PRN Reason: NAUSEA AND/OR VOMITING Pantoprazole Sodium (Protonix -) 40 mg PO DAILY [facility] Last Admin: 04/07/17 11:12 Dose: 40 mg Sevelamer Carbonate (Renvela -) 800 mg PO TIDCM [facility] Last Admin: 04/07/17 11:57 Dose: 800 mg Sodium Bicarbonate (Sodium Bicarbonate -) 1,300 mg PO BID [facility] Last Admin: 04/07/17 11:12 Dose: 1,300 mg Torsemide (Demadex -) 40 mg PO DAILY [facility] Last Admin: 04/07/17 11:12 Dose: 40 mg Trazodone HCl (Desyrel -) 300 mg PO HS [facility] Last Admin: 04/06/17 22:38 Dose: 300 mg - Objective Vital Signs: Vital Signs Temperature 98.3 F 04/07/17 14:44 Pulse Rate 84 04/07/17 14:44 Respiratory Rate 20 04/07/17 14:44 Blood Pressure 146/81 04/07/17 14:44 O2 Sat by Pulse Oximetry (%) 98 04/07/17 09:09 Constitutional: Yes: No Distress HENT: Yes: Atraumatic Neck: Yes: Supple Cardiovascular: Yes: Regular Rate and Rhythm Respiratory: Yes: CTA Bilaterally Gastrointestinal: Yes: Normal Bowel Sounds Extremities: Yes: Other (dresing intact on left leg and r foot) Neurological: Yes: Alert, Oriented Labs: CBC, BMP 04/06/17 08:50 04/06/17 08:50 INR, PTT INR 1.14 (0.82-1.09) 03/18/17 17:50 Problem List - Problems (1) ARF (acute renal failure) Assessment/Plan: on hd dr mendoza Code(s): N17.9 - ACUTE KIDNEY FAILURE, UNSPECIFIED Qualifiers: Acute renal failure type: unspecified Qualified Code(s): N17.9 - Acute kidney failure, unspecified (2) Hyperkalemia Assessment/Plan: on hd. Code(s): E87.5 - HYPERKALEMIA (3) Hyponatremia Assessment/Plan: resolved Code(s): E87.1 - HYPO-OSMOLALITY AND HYPONATREMIA (4) Syncope Assessment/Plan: resolved Code(s): R55 - SYNCOPE AND COLLAPSE Qualifiers: Syncope type: unspecified Qualified Code(s): R55 - Syncope and collapse (5) Diabetes mellitus Assessment/Plan: [facility] insulin Code(s): E11.9 - TYPE 2 DIABETES MELLITUS WITHOUT COMPLICATIONS Qualifiers: Diabetes mellitus type: type 2 Diabetes mellitus complication status: without complication Diabetes mellitus prison insulin use: without terminal computer operator use Qualified Code(s): E11.9 - Type 2 diabetes mellitus without complications (6) GERD (gastroesophageal reflux disease) Code(s): K21.9 - GASTRO-ESOPHAGEAL REFLUX DISEASE WITHOUT ESOPHAGITIS (7) HTN (hypertension) Assessment/Plan: on meds stable Code(s): I10 - ESSENTIAL (PRIMARY) HYPERTENSION Qualifiers: Hypertension type: essential hypertension Qualified Code(s): I10 - Essential (primary) hypertension (8) Type 2 diabetes mellitus with foot ulcer Assessment/Plan: s/p bka L wound care dressing change daily Code(s): E11.621 - TYPE 2 DIABETES MELLITUS WITH FOOT ULCER; L97.509 - NON- PRESSURE CHRONIC ULCER OTH PRT UNSP FOOT W UNSP SEVERITY
[2017-04-07] MEDS ORDERED: ALBUTEROL SO4 0.083% IH SOL 2.5 MG/3 ML VIAL.NEB. NEB PRN (21:07)
[2017-04-07] MEDS ORDERED: traZODone HCL 50 MG TABLET (FP) ONE (21:17)
[2017-04-07] MEDS: MIRTAZAPINE 30 MG TABLET (FP) PO SCH (21:56)
[2017-04-07] MEDS: traZODone HCL 100 MG TABLET (FP) PO SCH (21:57)
--- NOTE | 2017-04-07 22:41 | OP ---
DATE OF OPERATION: DATE OF DICTATION: 04/07/2017 SURGERY: Debridement of a diabetic foot ulceration to the subcutaneous tissue on the right foot. PREOPERATIVE DIAGNOSIS: Diabetic foot ulceration. POSTOPERATIVE DIAGNOSIS: Diabetic foot ulceration. ANESTHESIA: None (patient insensate). SURGEON: Dr. Niurka Galvan DESCRIPTION OF PROCEDURE: After prepping the patient in the usual manner, this procedure was performed at bedside. There was undermining from approximately 9 o'clock to 10 o'clock on this wound. Excisional debridement of all necrotic tissue was removed from the submetatarsal head five region of the right foot. Post debridement measurements were 2.6 x 1.9 cm. This was an excisional debridement of necrotic tissue including vital tissue such as hypergranulation and epithelium. NIURKA GALVAN DPM [id number]
[2017-04-08] MEDS: morphine SULFATE 4 MG/ML VIAL IVPUSH PRN ×2 (06:09→11:10)
[2017-04-08] MEDS: GABAPENTIN 100 MG CAPSULE (FP) PO SCH ×2 (06:10→14:42)
[2017-04-08] MEDS: INSULIN DETEMIR 100 UNITS/ML MDV SQ SCH (06:10)
[2017-04-08] MEDS: INSULIN SLIDING SCALE (NOVOLOG) 1 VIAL SQ SCH ×3 (06:10→17:27)
[2017-04-08] MEDS: SEVELAMER CARBONATE 800 MG TAB (FP) PO SCH ×3 (08:30→17:29)
[2017-04-08] MEDS: HEPARIN NA (PORCINE) 5,000 UNITS/ML 1ML VIAL SQ SCH (11:01)
[2017-04-08] MEDS: amLODIPine BESYLATE 10 MG TABLET (FP) PO SCH (11:01)
[2017-04-08] MEDS: METOPROLOL TARTRATE 50 MG TABLET (FP) PO SCH (11:01)
[2017-04-08] MEDS: DULoxetine HCL 30 MG CAPSULE.DR (FP) PO SCH (11:01)
[2017-04-08] MEDS: FOLIC ACID 1 MG TABLET (FP) PO SCH (11:01)
[2017-04-08] MEDS: SODIUM BICARBONATE 650 MG TABLET PO SCH (11:02)
[2017-04-08] MEDS: TORSEMIDE 20 MG TABLET (FP) PO SCH (11:02)
[2017-04-08] MEDS: PANTOPRAZOLE 40 MG TABLET (FP) PO SCH (11:02)
[2017-04-08] MEDS: DOXAZOSIN MESYLATE 4 MG TABLET PO SCH (11:03)
--- NOTE | 2017-04-08 11:38 | PN ---
Progress Note (short form) - Note Progress Note: Vascular Surgery Patient seen and examined at bedside endorses some occasional pain states he no longer has the occasional "phantom limb pain" Vital Signs Period Temp Pulse Resp BP Sys/Gutierrez Pulse Ox Last 24 Hr 98.3 F-98.9 F 83-87 20-20 146-156/81-85 98 PE: Left lower extremity stump staple line C/D/I no drainage or erythema. Well healed RLE: foot dressing C/D/I sutures removed A/P 61M with multipl medical problem s/p L BKA Will remove saravanan continue rest of management per primary team patient to be discharged to [facility] in next 1-3 days Podiatry recs noted to follow up microbiology for osteomyelitis of RLE continue current meds continue dialysis per nephrology DVT PPx BP control ISS and levemir follow up [facility] vascular as outpatient Case discussed with attending Dr. Daly
[2017-04-08] MEDS: COLLAGENASE CLOSTRIDIUM HIST. 30 GRAMS TUBE TP SCH (12:26)
[2017-04-08] MEDS ORDERED: oxyCODONE HCL 5 MG TABLET PO ONE (16:45)
--- NOTE | 2017-04-08 16:48 | PN ---
Progress Note, Physician History of Present Illness: Pt remains stable, afebrile. Dr Galvan's note reviewed. Pt for d/c today. Has no new complaints. - Current Medication List Current Medications: Active Medications Albuterol Sulfate (Ventolin 0.083% Nebulizer Soln -) 1 amp NEB Q4H PRN PRN Reason: SHORT OF BREATH/WHEEZING Amlodipine Besylate (Norvasc -) 10 mg PO DAILY [facility] Last Admin: 04/08/17 11:01 Dose: 10 mg Collagenase (Santyl -) 1 applic TP DAILY [facility] Last Admin: 04/08/17 12:26 Dose: 1 applic Doxazosin Mesylate (Cardura -) 4 mg PO DAILY [facility] Last Admin: 04/08/17 11:03 Dose: 4 mg Duloxetine HCl (Cymbalta -) 30 mg PO DAILY [facility] Last Admin: 04/08/17 11:01 Dose: 30 mg Folic Acid (Folic Acid -) 1 mg PO DAILY [facility] Last Admin: 04/08/17 11:01 Dose: 1 mg Gabapentin (Neurontin -) 100 mg PO TID [facility] Last Admin: 04/08/17 14:42 Dose: 100 mg Heparin Sodium (Porcine) (Heparin -) 5,000 unit SQ BID [facility] Last Admin: 04/08/17 11:01 Dose: 5,000 unit Insulin Aspart (Novolog Vial Sliding Scale -) 1 vial SQ ACHS [facility] PRN Reason: Protocol Last Admin: 04/08/17 12:26 Dose: 2 units Insulin Detemir (Levemir Vial) 15 units SQ BID@0700,2200 [facility] Last Admin: 04/08/17 06:10 Dose: Not Given Metoprolol Tartrate (Lopressor -) 50 mg PO BID [facility] Last Admin: 04/08/17 11:01 Dose: 50 mg Mirtazapine (Remeron -) 30 mg PO HS [facility] Last Admin: 04/07/17 21:56 Dose: 30 mg Morphine Sulfate (Morphine Sulfate) 2 mg IVPUSH Q4H PRN PRN Reason: PAIN Last Admin: 04/08/17 11:10 Dose: 2 mg Ondansetron HCl (Zofran Injection) 4 mg IVPUSH Q6H PRN PRN Reason: NAUSEA AND/OR VOMITING Oxycodone HCl (Roxicodone -) 10 mg PO ONCE ONE Stop: 04/08/17 16:46 Last Admin: 04/08/17 16:44 Dose: 10 mg Pantoprazole Sodium (Protonix -) 40 mg PO DAILY [facility] Last Admin: 04/08/17 11:02 Dose: 40 mg Sevelamer Carbonate (Renvela -) 800 mg PO TIDCM [facility] Last Admin: 04/08/17 12:26 Dose: 800 mg Sodium Bicarbonate (Sodium Bicarbonate -) 1,300 mg PO BID [facility] Last Admin: 04/08/17 11:02 Dose: 1,300 mg Torsemide (Demadex -) 40 mg PO DAILY [facility] Last Admin: 04/08/17 11:02 Dose: 40 mg Trazodone HCl (Desyrel -) 300 mg PO HS [facility] Last Admin: 04/07/17 21:57 Dose: 300 mg - Objective Vital Signs: Vital Signs Temperature 98.2 F 04/08/17 14:59 Pulse Rate 89 04/08/17 14:59 Respiratory Rate 20 04/08/17 14:59 Blood Pressure 146/87 04/08/17 14:59 O2 Sat by Pulse Oximetry (%) 98 04/07/17 21:00 Constitutional: Yes: No Distress Neck: Yes: Supple Cardiovascular: Yes: Regular Rate and Rhythm Respiratory: Yes: CTA Bilaterally Gastrointestinal: Yes: Normal Bowel Sounds, Soft Extremities: Yes: Amputation Wound/Incision: Yes: Dressing Dry and Intact (Lt BKA, Rt foot) Labs: CBC, BMP 04/06/17 08:50 04/06/17 08:50 INR, PTT INR 1.14 (0.82-1.09) 03/18/17 17:50 Problem List - Problems (1) ARF (acute renal failure) Code(s): N17.9 - ACUTE KIDNEY FAILURE, UNSPECIFIED Qualifiers: Acute renal failure type: unspecified Qualified Code(s): N17.9 - Acute kidney failure, unspecified (2) Gangrene of left foot Code(s): I96 - GANGRENE, NOT ELSEWHERE CLASSIFIED (3) Syncope Code(s): R55 - SYNCOPE AND COLLAPSE Qualifiers: Syncope type: unspecified Qualified Code(s): R55 - Syncope and collapse (4) COPD with emphysema Code(s): J43.9 - EMPHYSEMA, UNSPECIFIED (5) Chronic renal insufficiency, stage IV (severe) Code(s): N18.4 - CHRONIC KIDNEY DISEASE, STAGE 4 (SEVERE) (6) Diabetic neuropathy Code(s): E11.40 - TYPE 2 DIABETES MELLITUS WITH DIABETIC NEUROPATHY, UNSP Qualifiers: Diabetes mellitus type: type 2 Diabetes mellitus complication detail: diabetic polyneuropathy Qualified Code(s): E11.42 - Type 2 diabetes mellitus with diabetic polyneuropathy (7) Foot infection Code(s): L08.9 - LOCAL INFECTION OF THE SKIN AND SUBCUTANEOUS TISSUE, UNSP (8) Neuropathy Code(s): G62.9 - POLYNEUROPATHY, UNSPECIFIED (9) S/P amputation Code(s): Z89.9 - ACQUIRED ABSENCE OF LIMB, UNSPECIFIED (10) Type 2 diabetes mellitus with foot ulcer Code(s): E11.621 - TYPE 2 DIABETES MELLITUS WITH FOOT ULCER; L97.509 - NON- PRESSURE CHRONIC ULCER OTH PRT UNSP FOOT W UNSP SEVERITY (11) Osteomyelitis of right foot Code(s): M86.9 - OSTEOMYELITIS, UNSPECIFIED Assessment/Plan Lt LE gangrene/infection s/p BKA s/p Streptococcal Bacteremia/ sepsis FROYLAN/CKD now ESRD on HD Rt foot likely OM - no growth thus far in Bone cultures - Dr Galvan's note appreciated, to continue follow final culture results - pt clinically stable off antibiotics at this time - cont wound care for transfer today
[2017-04-08 17:17] VITALS: TEMP 97.5
[2017-04-08 17:23] LABS: MCH 28.3 pg (25.7-33.7); MCHC 32.5 g/dl (32.0-35.9); MEAN CELL VOLUME 87.1 fl (80-96); MEAN PLT VOLUME 7.9 fl (7.5-11.1); PLATELET COUNT 445 K/MM3 (134-434); RDW 17.7 % (11.9-15.9); WHITE BLOOD COUNT 9.6 K/mm3 (4.0-10.0)
--- NOTE | 2017-04-08 17:55 | PN ---
Progress Note (short form) - Note Progress Note: Renal Follow up for FROYLAN on CKD Pt seen and examined at the bedside no complaints Vital Signs Temperature 97.5 F L 04/08/17 17:00 Pulse Rate 80 04/08/17 17:05 Respiratory Rate 18 04/08/17 17:05 Blood Pressure 146/92 04/08/17 17:05 O2 Sat by Pulse Oximetry (%) 98 04/07/17 21:00 Intake & Output 04/05/17 04/06/17 04/07/17 04/08/17 23:59 23:59 23:59 23:59 Intake Total 1700 1000 1220 750 Output Total 2200 1800 1950 600 Balance -500 -800 -730 150 Weight 98.43 kg 98.486 kg 98.089 kg 99.535 kg NAD awake and alert RRR Dec Bs at lung bases, no rales soft NT/ND CBC, BMP 04/08/17 17:00 04/06/17 08:50 Current Medications Albuterol Sulfate (Ventolin 0.083% Nebulizer Soln -) 1 amp NEB Q4H PRN PRN Reason: SHORT OF BREATH/WHEEZING Amlodipine Besylate (Norvasc -) 10 mg PO DAILY [facility] Last Admin: 04/08/17 11:01 Dose: 10 mg Collagenase (Santyl -) 1 applic TP DAILY [facility] Last Admin: 04/08/17 12:26 Dose: 1 applic Doxazosin Mesylate (Cardura -) 4 mg PO DAILY [facility] Last Admin: 04/08/17 11:03 Dose: 4 mg Duloxetine HCl (Cymbalta -) 30 mg PO DAILY [facility] Last Admin: 04/08/17 11:01 Dose: 30 mg Folic Acid (Folic Acid -) 1 mg PO DAILY [facility] Last Admin: 04/08/17 11:01 Dose: 1 mg Gabapentin (Neurontin -) 100 mg PO TID [facility] Last Admin: 04/08/17 14:42 Dose: 100 mg Heparin Sodium (Porcine) (Heparin -) 5,000 unit SQ BID [facility] Last Admin: 04/08/17 11:01 Dose: 5,000 unit Insulin Aspart (Novolog Vial Sliding Scale -) 1 vial SQ ACHS [facility] PRN Reason: Protocol Last Admin: 04/08/17 17:27 Dose: Not Given Insulin Detemir (Levemir Vial) 15 units SQ BID@0700,2200 [facility] Last Admin: 04/08/17 06:10 Dose: Not Given Metoprolol Tartrate (Lopressor -) 50 mg PO BID [facility] Last Admin: 04/08/17 11:01 Dose: 50 mg Mirtazapine (Remeron -) 30 mg PO HS [facility] Last Admin: 04/07/17 21:56 Dose: 30 mg Morphine Sulfate (Morphine Sulfate) 2 mg IVPUSH Q4H PRN PRN Reason: PAIN Last Admin: 04/08/17 11:10 Dose: 2 mg Ondansetron HCl (Zofran Injection) 4 mg IVPUSH Q6H PRN PRN Reason: NAUSEA AND/OR VOMITING Pantoprazole Sodium (Protonix -) 40 mg PO DAILY [facility] Last Admin: 04/08/17 11:02 Dose: 40 mg Sevelamer Carbonate (Renvela -) 800 mg PO TIDCM [facility] Last Admin: 04/08/17 17:29 Dose: 800 mg Sodium Bicarbonate (Sodium Bicarbonate -) 1,300 mg PO BID [facility] Last Admin: 04/08/17 11:02 Dose: 1,300 mg Torsemide (Demadex -) 40 mg PO DAILY [facility] Last Admin: 04/08/17 11:02 Dose: 40 mg Trazodone HCl (Desyrel -) 300 mg PO [facility] Last Admin: 04/07/17 21:57 Dose: 300 mg 61 year old gentleman with PMhx of CKD stage 4 (baseline Cr 2.8), Hypertension , DM, PVD, Depression who presented with syncope and found to have acute on chronic renal failure with hyperkalemia and hyponatremia. #Acute Renal Failure now with ESRD on HD Hd today with 2 prbc transfusion to be discharge to rehab and HD at [facility] #Leukocytosis/Sepsis/infected LE wound final bone biopsy result pending off Abx for now ID following #Acute on Chronic anemia continue high dose ADRIAN with HD Miguel Jansen DO Problem List - Problems (1) Hyponatremia Code(s): E87.1 - HYPO-OSMOLALITY AND HYPONATREMIA (2) ARF (acute renal failure) Code(s): N17.9 - ACUTE KIDNEY FAILURE, UNSPECIFIED Qualifiers: Acute renal failure type: unspecified Qualified Code(s): N17.9 - Acute kidney failure, unspecified (3) Hyperkalemia Code(s): E87.5 - HYPERKALEMIA (4) Syncope Code(s): R55 - SYNCOPE AND COLLAPSE Qualifiers: Syncope type: unspecified Qualified Code(s): R55 - Syncope and collapse (5) FROYLAN (acute kidney injury) Code(s): N17.9 - ACUTE KIDNEY FAILURE, UNSPECIFIED
--- NOTE | 2017-04-08 18:13 | PN ---
Progress Note, Physician Chief Complaint: s/p right foot bone biopsy, Incision and drainage left foot and above ankle resection pending formal transtibial resection as well as a 5th metatarsal ulceration contralaterally (right foot) Positive MRI strongly suugeestive of osteomyelitis of the 5th right MTPJ History of Present Illness: s/p right foot bone biopsy, Incision and drainage left foot and above ankle resection pending formal transtibial resection as well as a 5th metatarsal ulceration contralaterally (right foot) Positive MRI strongly suugeestive of osteomyelitis of the 5th right MTPJ - Current Medication List Current Medications: Active Medications Albuterol Sulfate (Ventolin 0.083% Nebulizer Soln -) 1 amp NEB Q4H PRN PRN Reason: SHORT OF BREATH/WHEEZING Amlodipine Besylate (Norvasc -) 10 mg PO DAILY [facility] Last Admin: 04/08/17 11:01 Dose: 10 mg Collagenase (Santyl -) 1 applic TP DAILY [facility] Last Admin: 04/08/17 12:26 Dose: 1 applic Doxazosin Mesylate (Cardura -) 4 mg PO DAILY [facility] Last Admin: 04/08/17 11:03 Dose: 4 mg Duloxetine HCl (Cymbalta -) 30 mg PO DAILY [facility] Last Admin: 04/08/17 11:01 Dose: 30 mg Folic Acid (Folic Acid -) 1 mg PO DAILY [facility] Last Admin: 04/08/17 11:01 Dose: 1 mg Gabapentin (Neurontin -) 100 mg PO TID [facility] Last Admin: 04/08/17 14:42 Dose: 100 mg Heparin Sodium (Porcine) (Heparin -) 5,000 unit SQ BID [facility] Last Admin: 04/08/17 11:01 Dose: 5,000 unit Insulin Aspart (Novolog Vial Sliding Scale -) 1 vial SQ ACHS [facility] PRN Reason: Protocol Last Admin: 04/08/17 17:27 Dose: Not Given Insulin Detemir (Levemir Vial) 15 units SQ BID@0700,2200 [facility] Last Admin: 04/08/17 06:10 Dose: Not Given Metoprolol Tartrate (Lopressor -) 50 mg PO BID [facility] Last Admin: 04/08/17 11:01 Dose: 50 mg Mirtazapine (Remeron -) 30 mg PO HS [facility] Last Admin: 04/07/17 21:56 Dose: 30 mg Morphine Sulfate (Morphine Sulfate) 2 mg IVPUSH Q4H PRN PRN Reason: PAIN Last Admin: 04/08/17 11:10 Dose: 2 mg Ondansetron HCl (Zofran Injection) 4 mg IVPUSH Q6H PRN PRN Reason: NAUSEA AND/OR VOMITING Pantoprazole Sodium (Protonix -) 40 mg PO DAILY [facility] Last Admin: 04/08/17 11:02 Dose: 40 mg Sevelamer Carbonate (Renvela -) 800 mg PO TIDCM [facility] Last Admin: 04/08/17 17:29 Dose: 800 mg Sodium Bicarbonate (Sodium Bicarbonate -) 1,300 mg PO BID [facility] Last Admin: 04/08/17 11:02 Dose: 1,300 mg Torsemide (Demadex -) 40 mg PO DAILY [facility] Last Admin: 04/08/17 11:02 Dose: 40 mg Trazodone HCl (Desyrel -) 300 mg PO HS [facility] Last Admin: 04/07/17 21:57 Dose: 300 mg - Objective Vital Signs: Vital Signs Temperature 36.4 C L 04/08/17 17:00 Pulse Rate 82 04/08/17 18:05 Respiratory Rate 18 04/08/17 18:05 Blood Pressure 147/93 04/08/17 18:05 O2 Sat by Pulse Oximetry (%) 98 04/07/17 21:00 Constitutional: Yes: Well Nourished, No Distress Extremities: Yes: Amputation Edema: RUE: 2+ Wound/Incision: Yes: Unapproximated Neurological: Yes: Loss of Sensation, Numbness, Paresthesia Additional Findings/Remarks: Patient being discharged to [facility] this evening. Still awaiting finals on re-incubation of osseous samples and will telephone [facility] tomorrow.Telephoned this evening but gone for the day. Will next attend patient at [facility] Saturday Labs: CBC, BMP 04/08/17 17:00 04/06/17 08:50 INR, PTT INR 1.14 (0.82-1.09) 03/18/17 17:50 - ....Imaging X-ray: Report Reviewed, Image Reviewed MRI: Report Reviewed, Image Reviewed
--- NOTE | 2017-04-08 18:15 | PN ---
Problem List - Problems (1) Osteomyelitis of right foot Code(s): M86.9 - OSTEOMYELITIS, UNSPECIFIED Qualifiers: Osteomyelitis type: other chronic Qualified Code(s): M86.671 - Other chronic osteomyelitis, right ankle and foot
[2017-04-08 20:37] VITALS: BP 166/96; PULSE 77
--- NOTE | 2017-04-08 21:24 | PN ---
Progress Note, Physician - Objective Vital Signs: Vital Signs Temperature 97.5 F L 04/08/17 17:00 Pulse Rate 77 04/08/17 20:37 Respiratory Rate 18 04/08/17 20:37 Blood Pressure 166/96 04/08/17 20:37 O2 Sat by Pulse Oximetry (%) 98 04/07/17 21:00 Labs: CBC, BMP 04/08/17 17:00 04/06/17 08:50 INR, PTT INR 1.14 (0.82-1.09) 03/18/17 17:50 Problem List - Problems (1) ARF (acute renal failure) Code(s): N17.9 - ACUTE KIDNEY FAILURE, UNSPECIFIED Qualifiers: Acute renal failure type: unspecified Qualified Code(s): N17.9 - Acute kidney failure, unspecified (2) Hyperkalemia Code(s): E87.5 - HYPERKALEMIA (3) Hyponatremia Code(s): E87.1 - HYPO-OSMOLALITY AND HYPONATREMIA (4) Syncope Code(s): R55 - SYNCOPE AND COLLAPSE Qualifiers: Syncope type: unspecified Qualified Code(s): R55 - Syncope and collapse (5) Diabetes mellitus Code(s): E11.9 - TYPE 2 DIABETES MELLITUS WITHOUT COMPLICATIONS Qualifiers: Diabetes mellitus type: type 2 Diabetes mellitus complication status: without complication Diabetes mellitus alf insulin use: without termite helper use Qualified Code(s): E11.9 - Type 2 diabetes mellitus without complications (6) GERD (gastroesophageal reflux disease) Code(s): K21.9 - GASTRO-ESOPHAGEAL REFLUX DISEASE WITHOUT ESOPHAGITIS (7) HTN (hypertension) Code(s): I10 - ESSENTIAL (PRIMARY) HYPERTENSION Qualifiers: Hypertension type: essential hypertension Qualified Code(s): I10 - Essential (primary) hypertension (8) Type 2 diabetes mellitus with foot ulcer Code(s): E11.621 - TYPE 2 DIABETES MELLITUS WITH FOOT ULCER; L97.509 - NON- PRESSURE CHRONIC ULCER OTH PRT UNSP FOOT W UNSP SEVERITY
--- NOTE | 2017-04-08 23:06 | DS ---
Physical Examination Vital Signs: Vital Signs Temperature 97.5 F L 04/08/17 17:00 Pulse Rate 77 04/08/17 20:37 Respiratory Rate 18 04/08/17 20:37 Blood Pressure 166/96 04/08/17 20:37 O2 Sat by Pulse Oximetry (%) 98 04/07/17 21:00 Constitutional: Yes: No Distress HENT: Yes: Atraumatic Neck: Yes: Supple Cardiovascular: Yes: Regular Rate and Rhythm Respiratory: Yes: CTA Bilaterally Gastrointestinal: Yes: Normal Bowel Sounds Extremities: Yes: Other (llex in dressing r foot in dressing) Neurological: Yes: Alert, Oriented Labs: CBC, BMP 04/08/17 17:00 04/06/17 08:50 Discharge Summary Reason For Visit: ACUTE KIDNEY INJURY, SYNCOPE, HYPERKALEMIA Condition: Guarded - Instructions Diet, Activity, Other Instructions: wound care, dressing change daily Return to see Dr Angie Daly Thursday 04/12 on [facility] for wound care. Make an appointment at [facility], call [phone] for appointment Referrals: Dr. Aroldo Galvan [Other] [facility] [Other] Al Daly MD [Staff Physician] - Disposition: [facility] - Home Medications Comprehensive Discharge Medication List: Ambulatory Orders Amlodipine Besylate [Norvasc -] 10 mg PO DAILY 11/07/14 Ascorbate Calcium [Vitamin C] 500 mg PO DAILY 11/07/14 Ferrous Sulfate [Feosol] 325 mg PO DAILY 11/07/14 Folic Acid - 1 mg PO DAILY 11/07/14 Trazodone HCl 300 mg PO HS 11/07/14 Mirtazapine [Remeron -] 30 mg PO HS 08/19/16 Albuterol 0.083% Nebulizer Coretta [Ventolin 0.083% Nebulizer Soln -] 1 amp NEB Q4H PRN #0 amp 09/12/16 Metoprolol Tartrate [Lopressor -] 50 mg PO BID tablet 09/12/16 Furosemide [Lasix -] 80 mg PO DAILY #30 tablet 10/24/16 Sodium Bicarbonate 325 mg PO BID 11/21/16 Oxycodone HCl [Roxicodone -] 5 mg PO QID #120 tablet MDD 4 03/07/17 Doxazosin Mesylate [Cardura] 4 mg PO DAILY 03/18/17 Duloxetine HCl 30 mg PO DAILY 03/18/17 Ergocalciferol (Vitamin D2) [Vitamin D2] 50,000 unit PO WEEKLY 03/18/17 Insulin (Levemir) [Levemir Flexpen -] 15 units SQ HS 03/18/17 Insulin Aspart [Novolog Flexpen] 0 unit SQ ASDIR 03/18/17 dc to snf
== END 2017-04-08 21:23 | DRG 853 ==
LOC: JER 13:26 → JERBED 16:23 → JICU 21:15 → J6S 03-22 14:35
PROVIDERS: ADMIT Internal Medicine; ATTEND Internal Medicine
PROC: 0J9R0ZZ Drainage of Left Foot Subcutaneous Tissue and Fascia, Open Approach (ICD-10-PCS; 2017-03-18)
PROC: 0JBQ0ZZ Excision of Right Foot Subcutaneous Tissue and Fascia, Open Approach (ICD-10-PCS; 2017-03-18)
PROC: 30233N1 Transfusion of Nonautologous Red Blood Cells into Peripheral Vein, Percutaneous Approach (ICD-10-PCS; 2017-03-18)
PROC: 06HM33Z Insertion of Infusion Device into Right Femoral Vein, Percutaneous Approach (ICD-10-PCS; principal; 2017-03-19)
PROC: 5A1D70Z Performance of Urinary Filtration, Intermittent, Less than 6 Hours Per Day (ICD-10-PCS; 2017-03-19)
PROC: 0Y6N0Z0 Detachment at Left Foot, Complete, Open Approach (ICD-10-PCS; 2017-03-20)
PROC: 0JBQ0ZZ Excision of Right Foot Subcutaneous Tissue and Fascia, Open Approach (ICD-10-PCS; 2017-03-25)
PROC: 05HM33Z Insertion of Infusion Device into Right Internal Jugular Vein, Percutaneous Approach (ICD-10-PCS; 2017-03-25)
PROC: B513ZZA Fluoroscopy of Right Jugular Veins, Guidance (ICD-10-PCS; 2017-03-25)
PROC: 0Y6J0Z2 Detachment at Left Lower Leg, Mid, Open Approach (ICD-10-PCS; 2017-03-27)
PROC: 0QBP0ZX Excision of Left Metatarsal, Open Approach, Diagnostic (ICD-10-PCS; 2017-04-01)
DX: A40.8 Other streptococcal sepsis (principal); R65.21 Severe sepsis with septic shock; N18.6 End stage renal disease; E87.1 Hypo-osmolality and hyponatremia; E11.52 Type 2 diabetes mellitus with diabetic peripheral angiopathy with gangrene; I96 Gangrene, not elsewhere classified; N17.9 Acute kidney failure, unspecified; I12.0 Hypertensive chronic kidney disease with stage 5 chronic kidney disease or end stage renal disease; L97.518 Non-pressure chronic ulcer of other part of right foot with other specified severity; M86.671 Other chronic osteomyelitis, right ankle and foot; E11.69 Type 2 diabetes mellitus with other specified complication; E87.5 Hyperkalemia; E11.621 Type 2 diabetes mellitus with foot ulcer; E11.42 Type 2 diabetes mellitus with diabetic polyneuropathy; G89.29 Other chronic pain; J43.9 Emphysema, unspecified; K21.9 Gastro-esophageal reflux disease without esophagitis; R55 Syncope and collapse; F32.89 Other specified depressive episodes; D72.828 Other elevated white blood cell count; E11.22 Type 2 diabetes mellitus with diabetic chronic kidney disease; F17.210 Nicotine dependence, cigarettes, uncomplicated; D63.8 Anemia in other chronic diseases classified elsewhere; A08.8 Other specified intestinal infections; I44.0 Atrioventricular block, first degree; L08.9 Local infection of the skin and subcutaneous tissue, unspecified; E86.1 Hypovolemia; Z79.4 Long term (current) use of insulin; Z89.432 Acquired absence of left foot
CPT/HCPCS: 36415; 36430; 36511; 36600; 70450-TC; 71010-TC; 71111-TC; 72125-TC; 73630-TC-LT; 73630-TC-RT; 73721-RT-TC; 76000-TC; 76775-TC; 80048; 80053; 81003; 81015; 82550; 82565; 82570; 82728; 82803; 83540; 83550; 83605; 83735; 83930; 83935; 84100; 84156; 84300; 84484; 84520; 84540; 85025; 85027; 85610; 86704; 86706; 86708; 86803; 86850; 86900; 86901; 86922; 87040; 87070; 87075; 87077; 87086; 87186; 87205; 87324; 87340; 87449; 88304-TC; 88307-TC; 88311-TC; 93005; 93010; 93931; 93971; 94640; 94760; 97161-GP; 99284-25; G0480; J0878; J0885; J1644; J2597; P9038; P9058

== ENCOUNTER 2017-08-22 08:35 | Day surgery (SDC) | payer OTHER ==
[2017-08-15 10:05] VITALS: BMI 20.7
[2017-08-22 09:14] VITALS: BP 133/79; PULSE 72; TEMP 97.5
== END 2017-08-22 10:15 | disposition short-term general hospital (02) ==
LOC: JASU-SURG 08:35
PROVIDERS: ATTEND Surgery Vascular Surgery
PROC: 031 Upper Arteries, Bypass (ICD-10-PCS; principal; 2017-08-22)
DX: Z53.8 Procedure and treatment not carried out for other reasons (principal)
CPT/HCPCS: 36415; 82947; 82962; 84132

== ENCOUNTER 2017-08-22 09:57 | Observation (INO) | payer OTHER ==
--- NOTE | 2017-08-22 10:12 | PDOC ---
History of Present Illness - General History Source: Patient Exam Limitations: No Limitations - History of Present Illness Initial Comments: 08/22/17 11:15 The patient is a 61 year old male, with a significant past medical history of diabetes, hypertension, irregular heartbeat, ESRD (, , Saturday dialysis), and osteoarthritis, who presents to the emergency department sent with elevated glucose (500s today). He states his blood glucose is usually in the mid 100s in the morning. The patient was sent down from [facility] during fistula evaluation today. He denies any symptoms. Pt states his A1C was 5-7 last month, however, states that on , his A1C was 12. He states he does not have reliable follow-up. He reports use of insulin via vials opposed to his usual pens at his living facility. He denies chest pain, shortness of breath, headache and dizziness. He denies fever, chills, nausea, vomit, diarrhea and constipation. He denies dysuria, frequency, urgency and hematuria. He denies change in PO intake. Allergies: NKDA PCP: none currently <Lisa Ramos - Last Filed: 08/22/17 12:13> <Vimal Edgar - Last Filed: 08/22/17 17:23> - General Chief Complaint: Blood Sugar Problem Stated Complaint: HIGH BLOOD SUGAR Past History <Lisa Ramos - Last Filed: 08/22/17 12:13> - Past Medical History Anemia: Yes Asthma: No Cancer: No Cardiac Disorders: No CVA: No COPD: Yes CHF: No Dementia: No Diabetes: Yes (on insulin, with neuropathy ) GI Disorders: No Disorders: No HTN: Yes Hypercholesterolemia: No Liver Disease: No Seizures: No Thyroid Disease: No Lung CA: Yes (depression) - Surgical History Abdominal Surgery: Yes (HERNIA) Appendectomy: No Cardiac Surgery: No Cholecystectomy: No Lung Surgery: No Neurologic Surgery: No Orthopedic Surgery: Yes (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, rt gr toe amputation) - Immunization History Immunization Up to Date: Yes - Suicide/Smoking/Psychosocial Hx Smoking Status: No Smoking History: Current every day smoker Have you smoked in the past 12 months: Yes Number of Cigarettes Smoked Daily: 1 If you are a former smoker, when did you quit?: 2 Cigars Per Day: 1 'Breaking Loose' booklet given: 03/18/17 Hx Alcohol Use: No Drug/Substance Use Hx: Yes (no cocaine for 30 years) Substance Use Type: Alcohol, Cocaine, Marijuana Hx Substance Use Treatment: No <Vimal Edgar - Last Filed: 08/22/17 17:23> - Past Medical History Allergies/Adverse Reactions: Allergies Allergy/AdvReac Type Severity Reaction Status Date / Time shellfish derived Allergy Severe "HIVES" Verified 03/18/17 14:03 No Known Drug Allergies Allergy Verified 03/18/17 14:03 Home Medications: Ambulatory Orders Amlodipine Besylate [Norvasc -] 10 mg PO DAILY 11/07/14 Ascorbate Calcium [Vitamin C] 500 mg PO DAILY 11/07/14 Ferrous Sulfate [Feosol] 325 mg PO DAILY 11/07/14 Folic Acid - 1 mg PO DAILY 11/07/14 Albuterol 0.083% Nebulizer Coretta [Ventolin 0.083% Nebulizer Soln -] 1 amp NEB Q4H PRN #0 amp 09/12/16 Metoprolol Tartrate [Lopressor -] 50 mg PO BID tablet 09/12/16 Sodium Bicarbonate 325 mg PO BID 11/21/16 Doxazosin Mesylate [Cardura] 4 mg PO DAILY 03/18/17 Duloxetine HCl 30 mg PO DAILY 03/18/17 Ergocalciferol (Vitamin D2) [Vitamin D2] 50,000 unit PO WEEKLY 03/18/17 Insulin (Levemir) [Levemir Flexpen -] 15 units SQ HS 03/18/17 Insulin Aspart [Novolog Flexpen] 0 unit SQ ASDIR 03/18/17 Aspirin [ASA -] 81 mg PO DAILY 06/26/17 Oxycodone HCl/Acetaminophen [Percocet 10-325 mg Tablet] 1 each PO TID PRN #90 tablet MDD 3 06/26/17 Review of Systems - Review of Systems Able to Perform ROS?: Yes Comments:: 08/22/17 11:15 Constitutional: No recent illness; no fever ENT: No sore throat Cardiovascular: No palpitations; no chest pain Pulmonary: No cough; no trouble breathing Gastrointestinal: No nausea; no vomiting; no diarrhea Genitourinary: No urinary problems; no hematuria Skin: No rash Lymph system: No swollen glands Musculoskeletal: No joint swelling Neurological: No weakness; oo numbness; No Headache; no vertigo; no lightheadedness Psychiatric:No anxiety; no depression ROS: A complete review of 10 out of 10 review of systems is taken and is negative apart from what is previously mentioned below and in the HPI. <Lisa Ramos - Last Filed: 08/22/17 12:13> *Physical Exam - Vital Signs Last Vital Signs Temp Pulse Resp BP Pulse Ox 97.5 F L 67 15 159/92 98 08/22/17 10:15 08/22/17 10:15 08/22/17 10:15 08/22/17 10:15 08/22/17 10:15 - Physical Exam Comments: 08/22/17 11:16 Vitals: Triage vital signs reviewed General Appearance: No acute distress, well nourished, well developed Head: Atraumatic Eyes: Pupils equal reactive round, extraocular movement intact Neck: Supple; No nuchal rigidity Chest Wall: (+) dialysis port clean, dry, and intact without signs of cellulitis. Nontender Cardiac: Regular rate and rhythm, no murmurs, no rubs, no gallops Lungs: Clear to auscultation bilateral, good air movement bilaterally Abdomen: Soft, nondistended, normal bowel sounds, nontender to palpation Genitourinary: Rectal: Exam deferred Extremities: Left BKA uncomplicated. Full range of motion to all extremities, no cyanosis, clubbing, or edema Skin: Warm and dry, no rashes or lesions, no rash, no petechiae Neuro: AOX3; Cranial Nerves 2-12 grossly intact, Strength intact to all extremities, Sensation intact to all extremities, gait normal Psych: Normal mood, normal affect <Lisa Ramos - Last Filed: 08/22/17 12:13> ED Treatment Course - LABORATORY CBC & Chemistry Diagram: 08/22/17 09:40 08/22/17 09:40 - ADDITIONAL ORDERS Additional order review: 08/22/17 09:40 RBC 4.34 D MCV 88.5 MCHC 32.4 RDW 18.3 H MPV 8.1 Neutrophils % 73.8 Lymphocytes % 16.2 D Monocytes % 6.2 Eosinophils % 3.2 D Basophils % 0.6 - Medications Given in the ED: ED Medications Discontinued Medications Generic Name Dose Route Start Last Admin Trade Name Freq PRN Reason Stop Dose Admin Sodium Chloride 1,000 ml 08/22/17 10:45 08/22/17 11:04 Normal Saline - IV 08/22/17 10:46 1,000 ml ONCE ONE Administration <Lisa Ramos - Last Filed: 08/22/17 12:13> - LABORATORY CBC & Chemistry Diagram: 08/22/17 09:40 08/22/17 13:30 <Vimal Edgar - Last Filed: 08/22/17 17:23> Medical Decision Making - Medical Decision Making 08/22/17 12:00 Pt reassessed. States he is hungry, I will provide him with a diabetic food tray when lunch arrives. Pt is stable. Denies any complaints. <Lisa Ramos - Last Filed: 08/22/17 12:13> - Medical Decision Making Well-appearing no apparent distress fingerstick not improving with NovoLog. We' ve arranged for the patient follow-up in the clinic tomorrow It appears that the reason for his uncontrolled diabetes has been that the [facility] has been using insulin Patient otherwise well-appearing no apparent distress Reevaluation 523 pm Patient with difficult to control hyperglycemia. Trace acetonefor DKA no anion gap Despite 24 units of regular insulin glucometer still reading critical high At this time will continue hydration send a blood glucose to the lab. Patient will be placed on short stay observation to follow-up repeat glucose and additional management if necessary. <Vimal Edgar - Last Filed: 08/22/17 17:23> *DC/Admit/Observation/Transfer - Attestations Scribe Attestion: 08/22/17 11:16 Documentation prepared by Lisa Ramos, acting as medical practice administrator for Vimal Edgar MD, <Lisa Ramos - Last Filed: 08/22/17 12:13> - Discharge Dispostion Admit: Yes <Vimal Edgar - Last Filed: 08/22/17 17:23> Diagnosis at time of Disposition: Hyperglycemia - Discharge Dispostion Disposition: HOME - Referrals Referrals: Tawnya Denise MD [Primary Care Provider] - - Patient Instructions Printed Discharge Instructions: DI for Hyperglycemia -- Adult Additional Instructions: Take your insulin as prescribed. Follow-up tomorrow at the [facility]. The address is [address] [place] [address] first-floor. We have made an appointment with you 4:10 AM Return to the emergency department for any severe worsening symptoms or for any concerns.
[2017-08-22 10:21] VITALS: BMI 21.2
[2017-08-22] MEDS ORDERED: SODIUM CHLORIDE 0.9% 1000 ML INFUS.BAG IV ONE (10:45)
[2017-08-22 11:11] LABS: BASO % 0.6 % (0-2.0); EOS % 3.2 % (0-4.5); HEMATOCRIT 38.5 % (35.4-49); HEMOGLOBIN 12.5 GM/dL (11.7-16.9); LYMPH % 16.2 % (8-40); MCH 28.7 pg (25.7-33.7); MCHC 32.4 g/dl (32.0-35.9); MEAN CELL VOLUME 88.5 fl (80-96); MEAN PLT VOLUME 8.1 fl (7.5-11.1); MONO % 6.2 % (3.8-10.2); NEUT % 73.8 % (42.8-82.8); PLATELET COUNT 347 K/MM3 (134-434); RBC 4.34 M/mm3 (4.00-5.60); RDW 18.3 % (11.9-15.9); WHITE BLOOD COUNT 7.1 K/mm3 (4.0-10.0)
[2017-08-22] MEDS ORDERED: INSULIN DETEMIR 100 UNITS/ML MDV SQ ONE ×3 (12:16→23:30)
[2017-08-22 14:22] LABS: ALBUMIN 3.1 g/dl (3.4-5.0); ALK PHOS 223 U/L (45-117); ANION GAP 9 (8-16); BILIRUBIN,TOTAL 0.3 mg/dL (0.2-1.0); BLOOD UREA NITROGEN 52 mg/dL (7-18); CALCIUM 8.2 mg/dL (8.5-10.1); CHLORIDE 103 mmol/L (98-107); CO2 22 mmol/L (21-32); CREATININE 4.2 mg/dL (0.7-1.3); POTASSIUM 4.7 mmol/L (3.5-5.1); SGOT/AST 14 U/L (15-37); SGPT/ALT 26 U/L (12-78); SODIUM 134 mmol/L (136-145); TOT PROT 6.4 g/dl (6.4-8.2)
[2017-08-22 14:25] LABS: GLUCOSE,RANDOM 523 mg/dL (74-106)
[2017-08-22] MEDS ORDERED: INSULIN REGULAR HUMAN 100 UNITS/ML *VIAL SQ ONE ×2 (14:53→16:20)
[2017-08-22 14:59] LABS: ACETONE SERUM TRACE (NEGATIVE)
[2017-08-22] MEDS ORDERED: traMADol HCL 50 MG TABLET PO ONE (15:09)
[2017-08-22] MEDS ORDERED: oxyCODONE HCL 5 MG TABLET PO ONE (15:13)
[2017-08-22] MEDS ORDERED: INSULIN REGULAR HUMAN 100 UNITS/ML *VIAL ONE ×2 (15:19→16:26)
[2017-08-22] MEDS ORDERED: oxyCODONE HCL 5 MG TABLET ONE (15:21)
--- NOTE | 2017-08-22 17:28 | HP ---
CHIEF COMPLAINT: hyperglycemia PCP: unknown HISTORY OF PRESENT ILLNESS: This is a 61 year old male with PMHx of IDDM, HTN, ESRD (HD T,Th,Sa), osteoarthritis, who presented to the ED with hyperglycemia. The patient reports he was in [facility] for fistula evaluation and was found to be hyperglycemic and sent to the ED. The patient reports over the past few months he believes he was injecting himself with insulin that in 2016. The patient denies any dizziness, nausea, vomiting, diarrhea, headache, lower extremity swelling, urinary symptoms. He states he missed his HD today. ER course was notable for: (1) Temp 97.5, pulse 67, BP 159/92, resp 15, O2 98% on RA (2) Glucose 523 (3) Chest X-ray with no acute pathology Recent Travel: denies PAST MEDICAL HISTORY: as above PAST SURGICAL HISTORY: denies Social History: Smoking: denies Alcohol: denies Drugs: denies Family History: Allergies shellfish derived Allergy (Severe, Verified 03/18/17 14:03) "HIVES" SWELLING No Known Drug Allergies Allergy (Verified 03/18/17 14:03) HOME MEDICATIONS: Home Medications Medication Instructions Recorded Amlodipine Besylate [Norvasc -] 10 mg PO DAILY 11/07/14 Ascorbate Calcium [Vitamin C] 500 mg PO DAILY 11/07/14 Ferrous Sulfate [Feosol] 325 mg PO DAILY 11/07/14 Folic Acid - 1 mg PO DAILY 11/07/14 Albuterol 0.083% Nebulizer Coretta 1 amp NEB Q4H PRN #0 amp 09/12/16 [Ventolin 0.083% Nebulizer Soln -] Metoprolol Tartrate [Lopressor -] 50 mg PO BID tablet 09/12/16 Sodium Bicarbonate 325 mg PO BID 11/21/16 Doxazosin Mesylate [Cardura] 4 mg PO DAILY 03/18/17 Duloxetine HCl 30 mg PO DAILY 03/18/17 Ergocalciferol (Vitamin D2) 50,000 unit PO WEEKLY 03/18/17 [Vitamin D2] Insulin (Levemir) [Levemir Flexpen 15 units SQ HS 03/18/17 -] Insulin Aspart [Novolog Flexpen] 0 unit SQ ASDIR 03/18/17 Aspirin [ASA -] 81 mg PO DAILY 02/28/18 Oxycodone HCl/Acetaminophen 1 each PO TID PRN #90 tablet MDD 3 06/26/17 [Percocet 10-325 mg Tablet] REVIEW OF SYSTEMS CONSTITUTIONAL: Absent: fever, chills, diaphoresis, generalized weakness, malaise, loss of appetite, weight change HEENT: Absent: rhinorrhea, nasal congestion, throat pain, throat swelling, difficulty swallowing, mouth swelling, ear pain, eye pain, visual changes CARDIOVASCULAR: Absent: chest pain, syncope, palpitations, irregular heart rate, lightheadedness , peripheral edema RESPIRATORY: Absent: cough, shortness of breath, dyspnea with exertion, orthopnea, wheezing, stridor, hemoptysis GASTROINTESTINAL: Absent: abdominal pain, abdominal distension, nausea, vomiting, diarrhea, constipation, melena, hematochezia GENITOURINARY: Absent: dysuria, frequency, urgency, hesitancy, hematuria, flank pain, genital pain MUSCULOSKELETAL: Absent: myalgia, arthralgia, joint swelling, back pain, neck pain SKIN: Absent: rash, itching, pallor HEMATOLOGIC/IMMUNOLOGIC: Absent: easy bleeding, easy bruising, lymphadenopathy, frequent infections ENDOCRINE: Hyperglycemia Absent: unexplained weight gain, unexplained weight loss, heat intolerance, cold intolerance NEUROLOGIC: Absent: headache, focal weakness or paresthesias, dizziness, unsteady gait, seizure, mental status changes, bladder or bowel incontinence PSYCHIATRIC: Absent: anxiety, depression, suicidal or homicidal ideation, hallucinations. PHYSICAL EXAMINATION Vital Signs - 24 hr 08/22/17 10:15 Temperature 97.5 F L Pulse Rate 67 Respiratory 15 Rate Blood Pressure 159/92 O2 Sat by Pulse 98 Oximetry (%) GENERAL: Awake, alert, and fully oriented, in no acute distress. HEAD: Normal with no signs of trauma. EYES: Pupils equal, round and reactive to light, extraocular movements intact, sclera anicteric, conjunctiva clear. No lid lag. EARS, NOSE, THROAT: Ears normal, nares patent, oropharynx clear without exudates. Moist mucous membranes. NECK: Normal range of motion, supple without lymphadenopathy, JVD, or masses. LUNGS: Breath sounds equal, clear to auscultation bilaterally. No wheezes, and no crackles. No accessory muscle use. HEART: Regular rate and rhythm, normal S1 and S2 without murmur, rub or gallop. ABDOMEN: Soft, nontender, not distended, normoactive bowel sounds, no guarding, no rebound, no masses. No hepatomegaly or splenomegaly. MUSCULOSKELETAL: Normal range of motion at all joints. No bony deformities or tenderness. No CVA tenderness. UPPER EXTREMITIES: 2+ pulses, warm, well-perfused. No cyanosis. No clubbing. No peripheral edema. LOWER EXTREMITIES: Left BKA with prosthesis. NEUROLOGICAL: Cranial nerves II-XII intact. Normal speech. Normal gait. PSYCHIATRIC: Cooperative. Good eye contact. Appropriate mood and affect. SKIN: Right chest wall dialysis port, c/d/i. Warm, dry, normal turgor, no rashes or lesions noted, normal capillary refill. Laboratory Results - last 24 hr 08/22/17 08/22/17 08/22/17 09:40 09:40 10:33 WBC 7.1 RBC 4.34 D Hgb 12.5 D Hct 38.5 D MCV 88.5 MCH 28.7 MCHC 32.4 RDW 18.3 H Plt Count 347 D MPV 8.1 Neutrophils % 73.8 Lymphocytes % 16.2 D Monocytes % 6.2 Eosinophils % 3.2 D Basophils % 0.6 Sodium Cancelled Potassium Cancelled Chloride Cancelled Carbon Dioxide Cancelled Anion Gap Cancelled BUN Cancelled Creatinine Cancelled Creat Clearance w eGFR Cancelled POC Glucometer > 400 Random Glucose Cancelled Calcium Cancelled Total Bilirubin Cancelled AST Cancelled ALT Cancelled Alkaline Phosphatase Cancelled Total Protein Cancelled Albumin Cancelled Acetone, Qual Cancelled 08/22/17 08/22/17 13:30 16:17 WBC RBC Hgb Hct MCV MCH MCHC RDW Plt Count MPV Neutrophils % Lymphocytes % Monocytes % Eosinophils % Basophils % Sodium 134 L Potassium 4.7 Chloride 103 Carbon Dioxide 22 D Anion Gap 9 BUN 52 H Creatinine 4.2 H D Creat Clearance w eGFR 14.50 POC Glucometer > 400 Random Glucose 523 H* Calcium 8.2 L Total Bilirubin 0.3 D AST 14 L ALT 26 D Alkaline Phosphatase 223 H D Total Protein 6.4 Albumin 3.1 L D Acetone, Qual Trace Assessment: This is a 61 year old male with PMHx of IDDM, HTN, ESRD (HD T,,) , osteoarthritis, who presented to the ED with hyperglycemia. The patient reports he was in [facility] for fistula evaluation and was found to be hyperglycemic and sent to the ED. Plan: 1) Hyperglycemia, IDDM - BGM ACHS - Will give 7u Levemir qhs - F/u endocrine consult 2) ESRD - Discussed with Dr. Jansen, for HD tomorrow morning 3) HTN - Continue Lopressor - Continue Cardura - Continue Norvasc 4) F/E/N: - Monitor electrolytes - Diabetic, sodium controlled diet 5) Prophylaxis: - OOB ambulating 6) Dispo: - Likely after HD tomorrow CODE STATUS: FULL CODE Visit type - Emergency Visit Emergency Visit: Yes ED Registration Date: 08/22/17 Care time: The patient presented to the Emergency Department on the above date and was hospitalized for further evaluation of their emergent condition. - New Patient This patient is new to me today: Yes Date on this admission: 08/23/17 - Critical Care Critical Care patient: No Hospitalist Screening - Colonoscopy Questionnaire Colonoscopy Questionnaire: Colonoscopy Questionnaire - Patient: 50 - 75 years old and never had a screening colonoscopy: Unknown History of colon or rectal polyps, or CA: Unknown History of IBD, Crohn's disease or UC: Unknown History of abdominal radiation therapy as a child: Unknown - Relative: 1 with colon or rectal CA, or polyps at age 60 or younger: Unknown Colon or rectal CA diagnosed at age 45 or younger: Unknown Multiple relatives with colon or rectal CA: Unknown - Outcome: Screening Result: Negative Screen
[2017-08-22] MEDS ORDERED: ALBUTEROL SO4 0.083% IH SOL 2.5 MG/3 ML VIAL.NEB. NEB PRN (18:00)
[2017-08-22 18:50] LABS: ANION GAP 9 (8-16); BILIRUBIN,TOTAL 0.3 mg/dL (0.2-1.0); BLOOD UREA NITROGEN 49 mg/dL (7-18); CALCIUM 7.9 mg/dL (8.5-10.1); CHLORIDE 109 mmol/L (98-107); CO2 20 mmol/L (21-32); CREATININE 4.1 mg/dL (0.7-1.3); POTASSIUM 4.4 mmol/L (3.5-5.1); SGOT/AST 13 U/L (15-37); SGPT/ALT 24 U/L (12-78); SODIUM 138 mmol/L (136-145)
[2017-08-22 18:51] LABS: ALK PHOS 223 U/L (45-117); TOT PROT 6.4 g/dl (6.4-8.2)
[2017-08-22 19:16] LABS: GLUCOSE,RANDOM 339 mg/dL (74-106)
[2017-08-22] MEDS ORDERED: INSULIN DETEMIR 100 UNITS/ML MDV SQ SCH (22:00)
[2017-08-22] MEDS: INSULIN SLIDING SCALE (NOVOLOG) 1 VIAL SQ SCH (23:28)
[2017-08-22] MEDS ORDERED: METOPROLOL TARTRATE 50 MG TABLET (FP) ONE (23:29)
[2017-08-22] MEDS: METOPROLOL TARTRATE 50 MG TABLET (FP) PO SCH (23:48)
[2017-08-23] MEDS ORDERED: oxyCODONE HCL 5 MG TABLET PO ONE (02:27)
[2017-08-23 06:21] LABS: HEMATOCRIT 33.7 % (35.4-49); HEMOGLOBIN 11.2 GM/dL (11.7-16.9); MCH 29.4 pg (25.7-33.7); MCHC 33.2 g/dl (32.0-35.9); MEAN CELL VOLUME 88.5 fl (80-96); MEAN PLT VOLUME 7.7 fl (7.5-11.1); PLATELET COUNT 316 K/MM3 (134-434); RBC 3.81 M/mm3 (4.00-5.60); RDW 18.5 % (11.9-15.9); WHITE BLOOD COUNT 6.9 K/mm3 (4.0-10.0)
[2017-08-23 06:47] LABS: ALBUMIN 2.8 g/dl (3.4-5.0); ANION GAP 8 (8-16); BLOOD UREA NITROGEN 60 mg/dL (7-18); CALCIUM 7.9 mg/dL (8.5-10.1); CHLORIDE 111 mmol/L (98-107); CO2 22 mmol/L (21-32); GLUCOSE,RANDOM 100 mg/dL (74-106); POTASSIUM 4.5 mmol/L (3.5-5.1); SGOT/AST 14 U/L (15-37); SGPT/ALT 21 U/L (12-78); SODIUM 141 mmol/L (136-145)
[2017-08-23 06:49] LABS: ALK PHOS 160 U/L (45-117); BILIRUBIN,TOTAL 0.3 mg/dL (0.2-1.0); TOT PROT 5.7 g/dl (6.4-8.2)
[2017-08-23] MEDS: INSULIN SLIDING SCALE (NOVOLOG) 1 VIAL SQ SCH ×3 (06:54→16:54)
--- NOTE | 2017-08-23 09:24 | DS ---
Physical Examination Vital Signs: Vital Signs Temperature 98.0 F 08/23/17 07:29 Pulse Rate 57 L 08/23/17 07:29 Respiratory Rate 12 08/23/17 07:29 Blood Pressure 120/67 08/23/17 07:29 O2 Sat by Pulse Oximetry (%) 98 08/23/17 07:29 Labs: CBC, BMP 08/23/17 05:52 08/23/17 05:52 Discharge Summary Reason For Visit: HYPERGLYCEMIA Current Active Problems Hyperglycemia (Acute) Condition: Improved - Instructions Diet, Activity, Other Instructions: Please return to the ED with new, persistent, or worsening symptoms. Please follow-up with providers as indicated. Levemir: 7u sq at night Novolog sliding scale Blood sugar Units of Novolog to be given Less than 150 0 units 151-200 2 units 201-250 4 units 251-300 6 units 301-350 8 units 351-400 10 units Greater than 401 Call your provider Referrals: Ru Barron MD [Staff Physician] - (Please follow-up with Dr. Barron in the [facility] within 1 week for further management of your hyperglycemia.) [facility]position: [facility] - Home Medications Comprehensive Discharge Medication List: Ambulatory Orders Amlodipine Besylate [Norvasc -] 10 mg PO DAILY 11/07/14 Ascorbate Calcium [Vitamin C] 500 mg PO DAILY 11/07/14 Ferrous Sulfate [Feosol] 325 mg PO DAILY 11/07/14 Folic Acid - 1 mg PO DAILY 11/07/14 Albuterol 0.083% Nebulizer Coretta [Ventolin 0.083% Nebulizer Soln -] 1 amp NEB Q4H PRN #0 amp 09/12/16 Sodium Bicarbonate 325 mg PO BID 11/21/16 Doxazosin Mesylate [Cardura] 4 mg PO DAILY 03/18/17 Duloxetine HCl 30 mg PO DAILY 03/18/17 Ergocalciferol (Vitamin D2) [Vitamin D2] 50,000 unit PO WEEKLY 03/18/17 Aspirin [ASA -] 81 mg PO DAILY 06/26/17 Oxycodone HCl/Acetaminophen [Percocet 10-325 mg Tablet] 1 each PO TID PRN #90 tablet MDD 3 06/26/17 Insulin (Levemir) [Levemir Vial] 7 unit SQ HS #1 vial 04/27/18 Insulin Aspart [Novolog Flexpen] See Protocol SQ ACHS #1 insuln.pen 08/23/17 Metoprolol Tartrate [Lopressor -] 50 mg PO BID #0 tablet 08/23/17
[2017-08-23] MEDS ORDERED: SODIUM CHLORIDE 250 ML IV PRN (10:53)
--- NOTE | 2017-08-23 12:13 | CONSULT ---
Consult - text type - Consultation Consultation Note: Renal Consult for ESRD on HD This is a 61 year old gentleman with PMhx of ESRD on HD (recently stated), Hypertension, PVD, DM, Depression who presented for ambulatory AVF placement and found to have hyperglycemia and admitted for difficult to control blood sugars. Pt last had dialysis on Saturday. Denies any sob, chest pain, abd pain, N /V. Still makes urine. No Cough. No LE swelling. NO problems with his dialysis catheter. PMHx: as above Allergies: NKDA Family Hx: NC Social Hx: No T/A/D ROS: as per HPI Vital Signs Temperature 98.0 F 08/23/17 07:29 Pulse Rate 57 L 08/23/17 07:29 Respiratory Rate 12 08/23/17 11:57 Blood Pressure 120/67 08/23/17 07:29 O2 Sat by Pulse Oximetry (%) 98 08/23/17 11:57 Intake & Output 08/20/17 08/21/17 08/22/17 08/23/17 23:59 23:59 23:59 23:59 Weight 79.379 kg NAD awake and alert RRR, NO M/R CTA soft NT/ND NO LE edema, cyanosis Right IJ tunneled HD catheter CBC, BMP 08/23/17 05:52 08/23/17 05:52 Current Medications Albuterol Sulfate (Ventolin 0.083% Nebulizer Soln -) 1 amp NEB Q4H PRN PRN Reason: SHORT OF BREATH/WHEEZING Amlodipine Besylate (Norvasc -) 10 mg PO DAILY IGGY Ascorbic Acid (Vitamin C -) 500 mg PO DAILY IGGY Aspirin (Asa -) 81 mg PO DAILY IGGY Doxazosin Mesylate (Cardura -) 4 mg PO DAILY IGGY Duloxetine HCl (Cymbalta -) 30 mg PO DAILY IGGY Ferrous Sulfate (Feosol -) 325 mg PO DAILY IGGY Folic Acid (Folic Acid -) 1 mg PO DAILY IGGY Sodium Chloride (Normal Saline -) 250 mls @ 3,000 mls/hr IV PRN PRN PRN Reason: Hypotension during Dialysis Stop: 08/24/17 10:53 Insulin Aspart (Novolog Vial Sliding Scale -) 1 vial SQ ACHS IGGY PRN Reason: Protocol Last Admin: 08/23/17 06:54 Dose: Not Given Insulin Detemir (Levemir Vial) 7 units SQ HS [facility] Last Admin: 08/22/17 23:48 Dose: 7 unit Metoprolol Tartrate (Lopressor -) 50 mg PO BID [facility] Last Admin: 08/22/17 23:48 Dose: 50 mg 61 year old gentleman with PMhx of ESRD on HD (recently stated), Hypertension, PVD, DM, Depression who presented for ambulatory AVF placement and found to have hyperglycemia and admitted for difficult to control blood sugars. #Hyperglycemia #ESRD on HD #Hypertensin #PVD For dialysis today as a inpatient with [facility] as tolerated Renal Diet Management of hyperglycemia as per primary AVF placement to be rescheduled continue Cadalan Amlodpine Stable for discharge home after dialysis Miguel Jansen DO
[2017-08-23] MEDS: DULoxetine HCL 30 MG CAPSULE.DR (FP) PO SCH ×2 (12:14→16:36)
[2017-08-23] MEDS: DOXAZOSIN MESYLATE 4 MG TABLET PO SCH ×2 (12:14→16:36)
[2017-08-23] MEDS: ASPIRIN 81 MG CHEWABLE TABLETS PO SCH ×2 (12:14→16:36)
[2017-08-23] MEDS: FERROUS SO4 325 MG TABLET (FP) PO SCH ×2 (12:15→16:36)
[2017-08-23] MEDS: METOPROLOL TARTRATE 50 MG TABLET (FP) PO SCH ×2 (12:15→16:34)
[2017-08-23] MEDS: FOLIC ACID 1 MG TABLET (FP) PO SCH ×2 (12:15→16:35)
[2017-08-23] MEDS: ASCORBIC ACID 500 MG TABLET (FP) PO SCH ×2 (12:16→16:35)
[2017-08-23] MEDS: amLODIPine BESYLATE 10 MG TABLET (FP) PO SCH ×2 (12:16→16:35)
[2017-08-23 16:33] VITALS: TEMP 98
[2017-08-23 18:04] VITALS: BP 155/98; PULSE 72
--- NOTE | 2017-08-23 18:15 | CONSULT ---
Consult Consult Specialty:: Endocrinology Referred by:: Neelima Carpenter Reason for Consultation:: HYperglycemia - History of Present Illness Chief Complaint: Hyperglycemia History of Present Illness: This is a 61 year old male with h/o DM since 2002, on Insulin since then s/p left BKA, HTN, ESRD (HD T,,), osteoarthritis, who presented to the ED with hyperglycemia. The patient reports he was in [facility] for fistula evaluation and was found to be hyperglycemic and sent to the ED. Pt says his A1c was 5 until last month and it jumped to 12 this month after he was switched to Levemir vial instead of the flexpen he had been using in the past. Reports that his blood sugar has otherwise always been "good". Pt found to have blood sugar >500 in the ED and treated with Insulin. 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: Peripheral Neuropathy Cardio/Vascular: Yes: HTN Gastrointestinal: Yes: GERD Renal/: Yes: Renal Inusuff Infectious Disease: Yes: Other (osteomyelitis) Psych: Yes: Depression Musculoskeletal: Yes: Other (chronic pain) Rheumatology: Yes: Other (history of osteomyelitis) Endocrine: Yes: Diabetes Mellitus - Past Surgical History Past Surgical History: Yes: Amputation (transmetatarsal of Left foot) - Alcohol/Substance Use Hx Alcohol Use: No Number of Drinks Daily: 2 (weekends) - Smoking History Smoking history: Current every day smoker Have you smoked in the past 12 months: Yes Aproximately how many cigarettes per day: 1 If you are a former smoker, when did you quit?: 2 - Social History Usual Living Arrangement: Snf ADL: Support Services History of Recent Travel: No Home Medications - Allergies Allergies/Adverse Reactions: Allergies Allergy/AdvReac Type Severity Reaction Status Date / Time shellfish derived Allergy Severe "HIVES" Verified 03/18/17 14:03 No Known Drug Allergies Allergy Verified 03/18/17 14:03 - Home Medications Home Medications: Ambulatory Orders Ergocalciferol (Vitamin D2) [Vitamin D2] 50,000 unit PO WEEKLY 03/18/17 Aspirin [ASA -] 81 mg PO DAILY 06/26/17 Oxycodone HCl/Acetaminophen [Percocet 10-325 mg Tablet] 1 each PO TID PRN #90 tablet MDD 3 06/26/17 Albuterol 0.083% Nebulizer Coretta [Ventolin 0.083% Nebulizer Soln -] 1 amp NEB Q4H PRN #120 amp 08/23/17 Alcohol Antiseptic Pads [Alcohol Prep Pads] 1 each TP ACHS #1 med..pad 08/23/17 Amlodipine Besylate [Norvasc -] 10 mg PO DAILY #30 tablet 08/23/17 Ascorbate Calcium [Vitamin C] 500 mg PO DAILY #30 tablet 08/23/17 Doxazosin Mesylate [Cardura] 4 mg PO DAILY #30 tablet 08/23/17 Duloxetine HCl 30 mg PO DAILY #30 capsule.dr 08/23/17 Ferrous Sulfate [Feosol] 325 mg PO DAILY #30 tablet 08/23/17 Fluticasone Prop 0.05% Nasal [Flonase -] 1 - 2 spray NS DAILY #1 spray.pump Folic Acid - 1 mg PO DAILY #30 tablet 08/23/17 Furosemide [Lasix] 80 mg PO DAILY #30 tablet 08/23/17 Gabapentin 100 mg PO TUTHSA@1800 #60 capsule 08/23/17 Insulin Aspart [Novolog Flexpen] See Protocol SQ ACHS #1 insuln.pen 08/23/17 Insulin Detemir [Levemir Flextouch] 7 unit SQ HS #1 insuln.pen 08/23/17 Metoprolol Tartrate [Lopressor -] 50 mg PO BID #60 tablet 08/23/17 Mirtazapine [Remeron -] 30 mg PO HS #30 tablet 08/23/17 Sodium Bicarbonate 325 mg PO BID #60 tablet 08/23/17 Family Disease History - Family Disease History Family Disease History: Diabetes: Mother (), Other: Father (little contact), Mother Review of Systems - Review of Systems Constitutional: reports: No Symptoms Eyes: reports: No Symptoms HENT: reports: No Symptoms Neck: reports: No Symptoms Cardiovascular: reports: No Symptoms Respiratory: reports: No Symptoms Gastrointestinal: reports: No Symptoms Genitourinary: reports: No Symptoms Musculoskeletal: reports: Joint Pain Integumentary: reports: No Symptoms Neurological: reports: No Symptoms Endocrine: reports: No Symptoms Physical Exam Vital Signs: Vital Signs Temperature 98 F 08/23/17 17:56 Pulse Rate 72 08/23/17 17:56 Respiratory Rate 20 08/23/17 17:56 Blood Pressure 155/98 08/23/17 17:56 O2 Sat by Pulse Oximetry (%) 98 08/23/17 11:57 Constitutional: Yes: No Distress, Calm Eyes: Yes: Conjunctiva Clear, EOM Intact HENT: Yes: Atraumatic, Normocephalic Neck: Yes: Supple, Trachea Midline Cardiovascular: Yes: Regular Rate and Rhythm Respiratory: Yes: Regular, CTA Bilaterally Gastrointestinal: Yes: Normal Bowel Sounds, Soft Musculoskeletal: Yes: WNL Extremities: Yes: Amputation (left BKA) Edema: No Neurological: Yes: Alert, Oriented Labs: CBC, BMP 08/23/17 05:52 08/23/17 05:52 Assessment/Plan AP: DM uncontrolled ESRD on HD s/P left BKA BGM QACHS Levemir 7 tonight Got 15 units Levemir yesterday Adjust Levemir dose as necessary Novolog SS coverage.
[2017-08-23] MEDS ORDERED: INSULIN SLIDING SCALE (NOVOLOG) 1 VIAL SQ SCH ×2 (22:00)
[2017-08-24] MEDS ORDERED: INSULIN SLIDING SCALE (NOVOLOG) 1 VIAL SQ SCH (07:00)
[2017-08-25 06:38] LABS: HBSAG SCREEN Negative (Negative); HEP A AB, IGM Negative (Negative); HEP B CORE AB, TOT Positive (Negative)
== END 2017-08-23 19:30 ==
LOC: JER 09:57 → JERBED 17:21
PROVIDERS: ADMIT Hospitalist; ATTEND Registered Nurse
PROC: 3E013VG Introduction of Insulin into Subcutaneous Tissue, Percutaneous Approach (ICD-10-PCS; principal; 2017-08-22)
PROC: 3E0337Z Introduction of Electrolytic and Water Balance Substance into Peripheral Vein, Percutaneous Approach (ICD-10-PCS; 2017-08-22)
DX: E11.22 Type 2 diabetes mellitus with diabetic chronic kidney disease (principal); E11.65 Type 2 diabetes mellitus with hyperglycemia; E11.40 Type 2 diabetes mellitus with diabetic neuropathy, unspecified; I12.0 Hypertensive chronic kidney disease with stage 5 chronic kidney disease or end stage renal disease; N18.6 End stage renal disease; F17.210 Nicotine dependence, cigarettes, uncomplicated; Z99.2 Dependence on renal dialysis; Z79.4 Long term (current) use of insulin; I49.9 Cardiac arrhythmia, unspecified; M19.90 Unspecified osteoarthritis, unspecified site; D64.9 Anemia, unspecified; J44.9 Chronic obstructive pulmonary disease, unspecified; F32.9 Major depressive disorder, single episode, unspecified; Z91.013 Allergy to seafood; Z79.82 Long term (current) use of aspirin; Z89.432 Acquired absence of left foot; K21.9 Gastro-esophageal reflux disease without esophagitis
CPT/HCPCS: 36415; 71045-TC-FY; 80053; 82009; 82962; 85025; 85027; 86704; 86706; 86708; 87340; 96372; 99283-25; G0378; J7030

== ENCOUNTER 2017-09-24 09:33 | Inpatient (IN) | payer OTHER ==
--- NOTE | 2017-09-24 11:08 | PDOC ---
History of Present Illness - General Chief Complaint: Wound Stated Complaint: ABNORMAL LABS Time Seen by Provider: 09/24/17 09:47 History Source: Patient Exam Limitations: No Limitations - History of Present Illness Initial Comments: 09/24/17 10:58 The patient is a 62M with a PMH of diabetes, hypertension, irregular heartbeat, ESRD (, , Saturday dialysis), and osteoarthritis, who presents to the ER after being found to have + blood cultures from his last dialysis session 1 week ago from his permacath site. He denies any symptoms of fever, chills, nausea, vomiting but admits to pain on the R side of his head and neck which is "inside" his head, not worse with palpation. He denies any pain from his permacath site. His last dialysis was 5 days ago. Past History - Past Medical History Allergies/Adverse Reactions: Allergies Allergy/AdvReac Type Severity Reaction Status Date / Time shellfish derived Allergy Severe "HIVES" Verified 03/18/17 14:03 No Known Drug Allergies Allergy Verified 03/18/17 14:03 Home Medications: Ambulatory Orders Ergocalciferol (Vitamin D2) [Vitamin D2] 50,000 unit PO WEEKLY 03/18/17 Albuterol 0.083% Nebulizer Coretta [Ventolin 0.083% Nebulizer Soln -] 1 amp NEB Q4H PRN #120 amp 08/23/17 Amlodipine Besylate [Norvasc -] 10 mg PO DAILY #30 tablet 08/23/17 Ascorbate Calcium [Vitamin C] 500 mg PO DAILY #30 tablet 08/23/17 Doxazosin Mesylate [Cardura] 4 mg PO DAILY #30 tablet 08/23/17 Duloxetine HCl 30 mg PO DAILY #30 capsule.dr 08/23/17 Fluticasone Prop 0.05% Nasal [Flonase -] 1 - 2 spray NS DAILY #1 spray.pump Folic Acid - 1 mg PO DAILY #30 tablet 08/23/17 Furosemide [Lasix] 80 mg PO DAILY #30 tablet 08/23/17 Insulin Aspart [Novolog Flexpen] See Protocol SQ ACHS #1 insuln.pen 08/23/17 Metoprolol Tartrate [Lopressor -] 50 mg PO BID #60 tablet 08/23/17 Mirtazapine [Remeron -] 30 mg PO HS #30 tablet 08/23/17 Gabapentin 100 mg PO BID 09/24/17 Insulin Detemir [Levemir Flextouch] 15 unit SQ HS 09/24/17 Oxycodone HCl/Acetaminophen [Percocet 10-325 mg Tablet] 1 each PO Q6H PRN MDD 3 09/24/17 Sevelamer Carbonate 2 tab PO TID 09/24/17 Sodium Bicarbonate 325 gr PO BID 09/24/17 traZODone HCL [Desyrel -] 300 mg PO HS 09/24/17 Anemia: Yes Asthma: No Cancer: No Cardiac Disorders: No CVA: No COPD: Yes CHF: No Dementia: No Diabetes: Yes (on insulin, with neuropathy ) Dialysis: Yes GI Disorders: No Disorders: No HTN: Yes Hypercholesterolemia: No Liver Disease: No Seizures: No Thyroid Disease: No Lung CA: Yes (depression) - Surgical History Abdominal Surgery: Yes (HERNIA) Appendectomy: No Cardiac Surgery: No Cholecystectomy: No Lung Surgery: No Neurologic Surgery: No Orthopedic Surgery: Yes (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, rt gr toe amputation) - Immunization History Immunization Up to Date: Yes - Suicide/Smoking/Psychosocial Hx Smoking Status: No Smoking History: Current every day smoker Have you smoked in the past 12 months: Yes Number of Cigarettes Smoked Daily: 1 If you are a former smoker, when did you quit?: 2 Cigars Per Day: 1 Information on smoking cessation initiated: No 'Breaking Loose' booklet given: 03/18/17 Hx Alcohol Use: No Drug/Substance Use Hx: No Substance Use Type: None Hx Substance Use Treatment: No Review of Systems - Review of Systems Able to Perform ROS?: Yes Comments:: 09/24/17 11:08 GENERAL/CONSTITUTIONAL: No fever or chills. No weakness. HEAD, EYES, EARS, NOSE AND THROAT: No change in vision. No ear pain or discharge. No sore throat. CARDIOVASCULAR: No chest pain, palpitations, or lightheadedness. RESPIRATORY: No cough, wheezing, shortness of breath, or hemoptysis. GASTROINTESTINAL: No nausea, vomiting, diarrhea, constipation, or abdominal pain. GENITOURINARY: No dysuria, frequency, hematuria, or change in urination. MUSCULOSKELETAL: Positive for pain on R side of head and neck. No joint or muscle swelling or pain. SKIN: No rash or lesions. NEUROLOGIC: No headache, numbness, tingling, weakness, loss of consciousness, or change in strength/sensation. ENDOCRINE: No increased thirst. No abnormal weight change. HEMATOLOGIC/LYMPHATIC: No anemia, easy bleeding, or history of blood clots. ALLERGIC/IMMUNOLOGIC: No hives or skin allergy. Is the patient limited Icelandic proficient: No *Physical Exam - Vital Signs Last Vital Signs Temp Pulse Resp BP Pulse Ox 98.4 F 84 20 140/79 98 09/24/17 09:43 09/24/17 09:43 09/24/17 09:43 09/24/17 09:43 09/24/17 09:43 - Physical Exam Comments: 09/24/17 11:16 GENERAL: Well developed, well nourished. Awake and alert. No acute distress. HEENT: Normocephalic, atraumatic. Hearing grossly normal. Moist mucous membranes. PERRLA, EOMI. No conjunctival pallor. Sclera are non-icteric. NECK: Supple. Full ROM. CARDIOVASCULAR: Regular rate and rhythm. No murmurs, rubs, or gallops. PULMONARY: No evidence of respiratory distress. Crackles in b/l lower lobes, mild expiratory wheezing. ABDOMINAL: Soft. Non-tender. Non-distended. No rebound or guarding. GENITOURINARY: No CVA tenderness bilaterally. MUSCULOSKELETAL: L BKA. Normal range of motion at all joints. No bony deformities or tenderness. EXTREMITIES: No cyanosis. No clubbing. No edema. No calf tenderness or swelling. SKIN: Warm and dry. Normal capillary refill. No rashes. No jaundice. NEUROLOGICAL: Alert, awake, appropriate. Cranial nerves 2-12 intact. Normal speech. Gait is normal without ataxia. PSYCHIATRIC: Cooperative. Good eye contact. Appropriate mood and affect. Heart Score/ECG Review #1 ECG reviewed & interpreted by me at: 10:56 General ECG Interpretation: Sinus Rhythm, Normal Rate, Normal Intervals, No acute ischemic changes Compared to previous ECG there are: No significant change 09/24/17 12:03 Sinus tach w/ 1st degree AV block Vent rate 108 Numerous APC's noted HI 212 QRS 96 QTc 450 No MARK or STD No signs of acute ischemic changes. ED Treatment Course - LABORATORY CBC & Chemistry Diagram: 09/24/17 11:24 09/24/17 11:24 - RADIOLOGY Radiology Studies Ordered: Category Date Time Status CHEST X-RAY PORTABLE* [RAD] Stat Radiology 09/24/17 10:44 Ordered Medical Decision Making - Medical Decision Making 09/24/17 12:04 The patient is a 62M with an extensive PMH who missed dialysis and was found to have + blood cx with Staph 1 week ago. Repeating blood Cx w/ basic labs and giving vanco. Will discuss with Dr. 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 09/24/17 15:11 Dr. Jansen agrees that the patient needs dialysis. Dave give calcium gluconate, lasix 100, and kayexelate as well as [address] Daly will change the cath after negative blood cx and dialysis. Pt endorsed to [facility] for admission under Dr. Daly. *DC/Admit/Observation/Transfer Diagnosis at time of Disposition: Hyperglycemia, FROYLAN (acute kidney injury), Diabetes mellitus, insulin dependent (IDDM), controlled, Acute hyperkalemia, ESRD (end stage renal disease) - Discharge Dispostion Condition at time of disposition: Guarded Decision to Admit order: Yes - Referrals Referrals: Tawnya Denise MD [Primary Care Provider] - - Patient Instructions - Post Discharge Activity
--- NOTE | 2017-09-24 11:27 | PDOC ---
Attending Attestation - Resident Resident Name: Natan Garcia - ED Attending Attestation I have performed the following: I have examined & evaluated the patient, The case was reviewed & discussed with the resident, I agree w/resident's findings & plan - HPI HPI: 09/24/17 11:19 62y/o M ESRD on HD for about 6 months via R chest permacath on 04/02/17, on HD / last dialyzed presents from [facility] after he developed pain to his R neck about 8d ago, had blood culture drawn from catheter on Saturday, states was given abx on , and is now referred to ED for evaluation 2/2 infected cath site and missed HD on Saturday. Pt c/o swelling to neck, no bleeding/pus from site. - Physicial Exam PE: 09/24/17 11:27 subtle sts over R supraclavicular region R chest catheter in place, no redness/pus lungs w/ bibasilar crackles L AKA - Medical Decision Making 09/24/17 11:29 62y/o M ESRD via dialysis catheter sent for evaluation of + blood culture from HD catheter site. Plans were to place fistula last month but deferred 2/2 hyperglycemia per pt. labs, blood cultures CXR iv abx will likely need HD today - check BUN/lytes, no gross volume overload but likely early pulm edema will discuss with Dr. vegas for placement of new access, evaluation for fistula Heart Score/ECG Review #1 ECG reviewed & interpreted by me at: 10:24 General ECG Interpretation: Sinus Rhythm (sinus with frequent APCs), Normal Rate (108), Normal Intervals (qtc 450), No acute ischemic changes (? tall T wave V3)
[2017-09-24 11:56] LABS: BASO % 0.5 % (0-2.0); EOS % 0.7 % (0-4.5); HEMATOCRIT 34.6 % (35.4-49); HEMOGLOBIN 11.2 GM/dL (11.7-16.9); LYMPH % 3.7 % (8-40); MCH 28.5 pg (25.7-33.7); MCHC 32.3 g/dl (32.0-35.9); MEAN CELL VOLUME 88.5 fl (80-96); MEAN PLT VOLUME 9.3 fl (7.5-11.1); MONO % 10.9 % (3.8-10.2); NEUT % 84.2 % (42.8-82.8); PLATELET COUNT 333 K/MM3 (134-434); RBC 3.92 M/mm3 (4.00-5.60); RDW 16.4 % (11.9-15.9); WHITE BLOOD COUNT 12.2 K/mm3 (4.0-10.0)
[2017-09-24] MEDS ORDERED: VANCOMYCIN 1,250 MG in DEXTROSE 5%-WATER - 250 ML IVPB ONE (12:04)
[2017-09-24 13:02] LABS: ALBUMIN 2.5 g/dl (3.4-5.0); ALK PHOS 118 U/L (45-117); ANION GAP 17 (8-16); BILIRUBIN,TOTAL 0.6 mg/dL (0.2-1.0); CALCIUM 8.4 mg/dL (8.5-10.1); CHLORIDE 86 mmol/L (98-107); CO2 17 mmol/L (21-32); MAGNESIUM 2.4 mg/dL (1.8-2.4); SGOT/AST 8 U/L (15-37); SGPT/ALT 13 U/L (12-78); TOT PROT 6.7 g/dl (6.4-8.2)
[2017-09-24 13:18] LABS: GLUCOSE,RANDOM 533 mg/dL (74-106)
[2017-09-24 13:19] LABS: BLOOD UREA NITROGEN 112 mg/dL (7-18); CREATININE 11.8 mg/dL (0.7-1.3); POTASSIUM 6.3 mmol/L (3.5-5.1); SODIUM 120 mmol/L (136-145)
[2017-09-24] MEDS ORDERED: diazePAM CARPU-JECT 10 MG/2 ML DISP.SYRIN IVPUSH ONE (13:24)
[2017-09-24] MEDS ORDERED: INSULIN REGULAR HUMAN 100 UNITS/ML *VIAL IVPUSH ONE ×2 (13:25→16:44)
[2017-09-24] MEDS ORDERED: FUROSEMIDE 100 MG/10 ML INJECTABLE VIAL IVPB ONE (13:33)
[2017-09-24] MEDS ORDERED: SODIUM POLYSTYRENE SULFONATE 15 GM/60 ML BOTTLE PO ONE (13:34)
[2017-09-24] MEDS ORDERED: CALCIUM GLUCONATE 10% - 1,000 MG/10 ML VIAL IVPB ONE (13:34)
[2017-09-24] MEDS ORDERED: SODIUM POLYSTYRENE SULFONATE 15 GM/60 ML BOTTLE ONE (13:45)
[2017-09-24] MEDS ORDERED: INSULIN REGULAR HUMAN 100 UNITS/ML *VIAL ONE ×2 (13:46→16:45)
[2017-09-24] MEDS ORDERED: FUROSEMIDE 40 MG/4 ML INJECTABLE VIAL ONE (13:46)
[2017-09-24] MEDS ORDERED: diazePAM 5 MG TABLET PO ONE (13:48)
[2017-09-24] MEDS ORDERED: diazePAM 5 MG TABLET ONE (13:58)
[2017-09-24] MEDS ORDERED: SODIUM CHLORIDE 250 ML IV PRN (14:09)
--- NOTE | 2017-09-24 14:09 | CONSULT ---
Consult - text type - Consultation Consultation Note: Renal Consult for ESRD and Hyperkalemia This is a 62 year old AA gentleman with PMhx of ESRD on HD (TTS) secondary to suspected diabetic nephropathy, DM, Hypertension, PVD who presented outpatient blood cultures that were positive for gram positive Cocci. Pt reports that he has been feeling ill for the last 4-5 days. Missed his last dialysis on Saturday. Has mild sob. No fever. No N/V/D. + PEREZ, neck stiffness. No discharge from catheter site. PMhx: as above Allergies: NKDA Family Hx: NC Social hx: No T/A/D ROS: as per HPI Vital Signs Temperature 98.4 F 09/24/17 09:43 Pulse Rate 84 09/24/17 09:43 Respiratory Rate 20 09/24/17 09:43 Blood Pressure 140/79 09/24/17 09:43 O2 Sat by Pulse Oximetry (%) 98 09/24/17 11:42 Intake & Output 09/21/17 09/22/17 09/23/17 09/24/17 23:59 23:59 23:59 23:59 Weight 80 kg NAD awake and alert RRR, No M/R CTA soft NT/ND No LE edema, Left BKA catheter eixt site is clean, no discharge, + mild tenderness CBC, BMP 09/24/17 11:24 09/24/17 11:24 62 year old AA gentleman with PMhx of ESRD on HD (TTS) secondary to suspected diabetic nephropathy, DM, Hypertension, PVD who presented outpatient blood cultures that were positive for gram positive Cocci. #ESRD on HD #Hyperkalemia #Hyponatremia #Gram + bacteremia in setting fo indwelling dialysis catheter #Anemia s/p medical management of hyperkalemia in the ED (insulin, calcium gluconate, Lasix, kayexalte) for dialysis today as inpatient on 2k bath Corrected Na is 130 so will use regular Na bath on dialysis blood cultures collected in ED, s/p IV Vanco, will reload with Vanco post dialysis as well Vascular consult as pt will likely need dialysis catheter removed ID consult hgb at goal trend H/H Thank you Will follow Miguel Jansen DO
[2017-09-24] MEDS ORDERED: VANCOMYCIN 500 MG in DEXTROSE 5%-WATER - 100 ML IVPB ONE (14:10)
[2017-09-24] MEDS ORDERED: VANCOMYCIN 500 MG VIAL (RESTRICTED TO ID ONLY) ONE (15:09)
[2017-09-24 16:21] LABS: URINE APPEARANCE TURBID; URINE BILIRUBIN NEGATIVE (<2.0 mg/dL); URINE COLOR YELLOW; URINE GLUCOSE (UA) NEGATIVE (NEGATIVE); URINE KETONE NEGATIVE (NEGATIVE); URINE NITRITE NEGATIVE (NEGATIVE); URINE UROBILINOGEN NEGATIVE mg/dL (0.2-1.0)
[2017-09-24 16:22] LABS: URINE LEUK ESTERASE 2+ (NEGATIVE); URINE PROTEIN 2+ (NEGATIVE)
[2017-09-24 16:24] LABS: URINE BACTERIA MANY /hpf (NONE SEEN)
[2017-09-24 16:25] LABS: AMORP URATES MODERATE /hpf (NONE SEEN)
--- NOTE | 2017-09-24 16:37 | PN ---
Progress Note (short form) - Note Progress Note: VASCULAR SURGERY - Dr. Daly Patient very well know to our service. + blood cultures (G+ cocci) from permacath (1 week ago from HD center). Received insulin, calcium gluconate, lasix, kayexalate in ED to manage hyperkalemia. Last Vital Signs Temp Pulse Resp BP Pulse Ox 98.4 F 84 20 140/79 98 09/24/17 09:43 09/24/17 09:43 09/24/17 09:43 09/24/17 09:43 09/24/17 11:42 CBC, BMP 09/24/17 11:24 09/24/17 11:24 Problem List - Problems (1) ESRD (end stage renal disease) Assessment/Plan: - Patient scheduled to go for HD tonight via permacath - because it will most likely be late tonight, Surgery Team will remove PC in AM - LUE limb precaution (no bp, iv, phlebotomy) - Vein mapping performed 03/26/17. - IV abx - Once he has negative blood cultures we can proceed with AV fistula. - Should he need HD before then, a shiley will be placed then removed after treatment. - Above discussed with Dr. Daly and agrees. Code(s): N18.6 - END STAGE RENAL DISEASE
--- NOTE | 2017-09-24 19:04 | HP ---
CHIEF COMPLAINT: generalized weakness x 10 days and found to have +blood cultures on outpatient facility PCP: HISTORY OF PRESENT ILLNESS: Patient is a 61 year old male with a significant past medical history of diabetes mellitus, hypertension, ESRD (Tues, Thurs, Sat), osteoarthritis and left below the knee amputation. He presents to the ER after being found to have + blood cultures from his last dialysis session 1 week ago from his right permacath site. Patient states that for the last 10 days he felt generally weaker, but denies fevers, chills, nausea or vomiting. He reports pain on the right side of his head and neck. No visual defects, no vomiting or nausea. He denies any pain from his right permacath site nor surrounding tissue. His last dialysis was 5 days ago. Labs in the ER he was noted to have electrolyte imbalance which included hyperkalemia of 6.3 and was given insulin, d50 and calcium gluconate. ER course was notable for: (1) WBC 12.2 (2) Sodium 120, Potassium 6.3, MNK177/Creat 11.8, Glucose 533 (3) Recent Travel: PAST MEDICAL HISTORY: as noted above PAST SURGICAL HISTORY: Social History: Smoking: n/a Alcohol: n/a Drugs: n/a Family History: Allergies shellfish derived Allergy (Severe, Verified 03/18/17 14:03) "HIVES" SWELLING No Known Drug Allergies Allergy (Verified 03/18/17 14:03) HOME MEDICATIONS: Home Medications Medication Instructions Recorded Ergocalciferol (Vitamin D2) 50,000 unit PO WEEKLY 03/18/17 [Vitamin D2] Albuterol 0.083% Nebulizer Coretta 1 amp NEB Q4H PRN #120 amp 08/23/17 [Ventolin 0.083% Nebulizer Soln -] Amlodipine Besylate [Norvasc -] 10 mg PO DAILY #30 tablet 08/23/17 Ascorbate Calcium [Vitamin C] 500 mg PO DAILY #30 tablet 08/23/17 Doxazosin Mesylate [Cardura] 4 mg PO DAILY #30 tablet 08/23/17 Duloxetine HCl 30 mg PO DAILY #30 capsule. 08/23/17 Fluticasone Prop 0.05% Nasal 1 - 2 spray NS DAILY #1 spray.pump 08/23/17 [Flonase -] Folic Acid - 1 mg PO DAILY #30 tablet 08/23/17 Furosemide [Lasix] 80 mg PO DAILY #30 tablet 08/23/17 Insulin Aspart [Novolog Flexpen] See Protocol SQ ACHS #1 insuln.pen 08/23/17 Metoprolol Tartrate [Lopressor -] 50 mg PO BID #60 tablet 08/23/17 Mirtazapine [Remeron -] 30 mg PO HS #30 tablet 08/23/17 Gabapentin 100 mg PO BID 09/24/17 Insulin Detemir [Levemir Flextouch] 15 unit SQ HS 09/24/17 Oxycodone HCl/Acetaminophen 1 each PO Q6H PRN MDD 3 09/24/17 [Percocet 10-325 mg Tablet] Sevelamer Carbonate 2 tab PO TID 09/24/17 Sodium Bicarbonate 325 gr PO BID 09/24/17 traZODone HCL [Desyrel -] 300 mg PO HS 09/24/17 PHYSICAL EXAMINATION Vital Signs - 24 hr 09/24/17 09/24/17 09/24/17 09:43 11:42 17:01 Temperature 98.4 F Pulse Rate 84 Pulse Rate [ 95 H Apical] Respiratory 20 18 Rate Blood Pressure 140/79 Blood Pressure 139/86 [Right Arm] O2 Sat by Pulse 98 98 98 Oximetry (%) GENERAL: Awake, alert, and fully oriented, in no acute distress. HEAD: Normal with no signs of trauma. EYES: Pupils equal, round and reactive to light, extraocular movements intact, sclera anicteric, conjunctiva clear. No lid lag. EARS, NOSE, THROAT: Ears normal, nares patent, oropharynx clear without exudates. Moist mucous membranes. NECK: Normal range of motion, supple without lymphadenopathy, JVD, or masses. LUNGS: Breath sounds equal, clear to auscultation bilaterally. No wheezes, and no crackles. No accessory muscle use. HEART: Regular rate and rhythm, normal S1 and S2 without murmur, rub or gallop. ABDOMEN: Soft, nontender, not distended, normoactive bowel sounds, no guarding, no rebound, no masses. No hepatomegaly or splenomegaly. MUSCULOSKELETAL: Normal range of motion at all joints. No bony deformities or tenderness. No CVA tenderness. UPPER EXTREMITIES: No peripheral edema. LOWER EXTREMITIES: left BKA with prosthesis NEUROLOGICAL: Normal speech PSYCHIATRIC: Cooperative. Good eye contact. Appropriate mood and affect. SKIN: Warm, dry, normal turgor, no rashes or lesions noted, normal capillary refill. Laboratory Results - last 24 hr 09/24/17 09/24/17 09/24/17 11:24 11:24 16:00 WBC 12.2 H D RBC 3.92 L Hgb 11.2 L Hct 34.6 L MCV 88.5 MCH 28.5 MCHC 32.3 RDW 16.4 H Plt Count 333 MPV 9.3 D Neutrophils % 84.2 H Lymphocytes % 3.7 L D Monocytes % 10.9 H Eosinophils % 0.7 Basophils % 0.5 Nucleated RBC % 0 Sodium 120 L* D Potassium 6.3 H* D Chloride 86 L D Carbon Dioxide 17 L D Anion Gap 17 H BUN 112 H* D Creatinine 11.8 H* D Creat Clearance w eGFR 4.39 Random Glucose 533 H* D Calcium 8.4 L Magnesium 2.4 D Total Bilirubin 0.6 D AST 8 L D ALT 13 D Alkaline Phosphatase 118 H D Total Protein 6.7 Albumin 2.5 L Urine Color Yellow Urine Appearance Turbid Urine pH 5.0 Ur Specific [place] 1.015 Urine Protein 2+ H Urine Glucose (UA) Negative Urine Ketones Negative Urine Blood 1+ H Urine Nitrite Negative Urine Bilirubin Negative Urine Urobilinogen Negative Ur Leukocyte Esterase 2+ H Urine WBC (Auto) 807 Urine RBC (Auto) 6 Amorphous Urates Moderate Urine Bacteria Many ASSESSMENT/PLAN: Patient is a 61 year old male with a significant past medical history of diabetes mellitus, hypertension, ESRD (Tues, Thurs, Sat), osteoarthritis and left below the knee amputation. He presents to the ER after being found to have + blood cultures from his last dialysis session 1 week ago from his right permacath site. Patient states that for the last 10 days he felt generally weaker, but denies fevers, chills, nausea or vomiting. He reports pain on the right side of his head and neck. No visual defects, no vomiting or nausea. He denies any pain from his right permacath site nor surrounding tissue. His last dialysis was 5 days ago. Labs in the ER he was noted to have electrolyte imbalance which included hyperkalemia of 6.3 and was given insulin, d50 and calcium gluconate. ID: + blood cultures from right permacath No bleeding or pus noted from site Repeat blood cultures pending given Vanco in the ED Monitor labs, vitals No signs of infection noted on right permacath site or surrounding dtissue ID consulted Renal: ESRD Dialysis today Vascular consult for possible AV fistula placement once blood cultures negative Missed HD on Saturday Dialysis today Endocrine Diabetes On SS and Levemir CV: Hypertension, chronic continue home medications Infected Permacath/generalized weakness Echo ordered F.E.N. Fluids: none needed Electrolyes: monitor Nutrition: renal diet Prophy: DVT: Heparin GI: deferred Hospitalist Screening - Colonoscopy Questionnaire Colonoscopy Questionnaire: Colonoscopy Questionnaire
[2017-09-24] MEDS ORDERED: traZODone HCL 50 MG TABLET (FP) ONE (22:49)
[2017-09-24] MEDS: SEVELAMER CARBONATE 800 MG TAB (FP) PO SCH (22:56)
[2017-09-24] MEDS: HEPARIN NA (PORCINE) 5,000 UNITS/ML 1ML VIAL SQ SCH (22:57)
[2017-09-24] MEDS: traZODone HCL 100 MG TABLET (FP) PO SCH (22:57)
[2017-09-24] MEDS: METOPROLOL TARTRATE 50 MG TABLET (FP) PO SCH (22:57)
[2017-09-24] MEDS: GABAPENTIN 100 MG CAPSULE (FP) PO SCH (22:57)
[2017-09-24] MEDS: SODIUM BICARBONATE 325 MG TABLET PO SCH (22:58)
[2017-09-24] MEDS: INSULIN SLIDING SCALE (NOVOLOG) 1 VIAL SQ SCH (23:00)
[2017-09-24] MEDS ORDERED: PT OWN MED DRAWER 7, Y5N ONE (23:17)
[2017-09-25] MEDS: INSULIN SLIDING SCALE (NOVOLOG) 1 VIAL SQ SCH ×4 (06:36→23:21)
[2017-09-25 07:27] LABS: BASO % 0.5 % (0-2.0); EOS % 0.9 % (0-4.5); HEMATOCRIT 33.8 % (35.4-49); HEMOGLOBIN 10.9 GM/dL (11.7-16.9); LYMPH % 5.7 % (8-40); MCH 28.8 pg (25.7-33.7); MCHC 32.3 g/dl (32.0-35.9); MEAN CELL VOLUME 89.3 fl (80-96); MEAN PLT VOLUME 9.2 fl (7.5-11.1); MONO % 12.5 % (3.8-10.2); NEUT % 80.4 % (42.8-82.8); PLATELET COUNT 366 K/MM3 (134-434); RBC 3.78 M/mm3 (4.00-5.60); RDW 16.6 % (11.9-15.9); WHITE BLOOD COUNT 12.5 K/mm3 (4.0-10.0)
[2017-09-25 07:48] LABS: CHLORIDE 90 mmol/L (98-107); POTASSIUM 5.1 mmol/L (3.5-5.1); SODIUM 128 mmol/L (136-145)
[2017-09-25 08:11] LABS: ALBUMIN 2.7 g/dl (3.4-5.0); ALK PHOS 118 U/L (45-117); ANION GAP 18 (8-16); BILIRUBIN,TOTAL 0.9 mg/dL (0.2-1.0); BLOOD UREA NITROGEN 99 mg/dL (7-18); CALCIUM 8.6 mg/dL (8.5-10.1); CO2 20 mmol/L (21-32); GLUCOSE,RANDOM 296 mg/dL (74-106); MAGNESIUM 2.2 mg/dL (1.8-2.4); SGOT/AST 14 U/L (15-37); SGPT/ALT 14 U/L (12-78)
[2017-09-25] MEDS ORDERED: PT OWN MED DRAWER 7, Y5N ONE ×2 (08:52→23:00)
[2017-09-25 08:53] LABS: CREATININE 10.8 mg/dL (0.7-1.3)
--- NOTE | 2017-09-25 09:39 | EKG ---
Test Reason : Blood Pressure : / mmHG Vent. Rate : 108 BPM Atrial Rate : 133 BPM P-R Int : 212 ms QRS Dur : 096 ms QT Int : 336 ms P-R-T Axes : 078 082 069 degrees QTc Int : 450 ms SINUS TACHYCARDIA WITH 1ST DEGREE A-V BLOCK WITH PREMATURE SUPRAVENTRICULAR COMPLEXES SEPTAL INFARCT , AGE UNDETERMINED ABNORMAL ECG WHEN COMPARED WITH ECG OF 19-MAR-2017 14:37, PREMATURE SUPRAVENTRICULAR COMPLEXES ARE NOW PRESENT VENT. RATE HAS INCREASED BY 37 BPM Confirmed by CYRUS PARADA, JORDAN ([id number]) on 09/25/2017 9:39:26 AM Referred By: Confirmed By:JORDAN BRIDGES MD
[2017-09-25] MEDS: amLODIPine BESYLATE 10 MG TABLET (FP) PO SCH (09:50)
[2017-09-25] MEDS: SEVELAMER CARBONATE 800 MG TAB (FP) PO SCH ×3 (09:52→17:58)
[2017-09-25] MEDS: GABAPENTIN 100 MG CAPSULE (FP) PO SCH ×2 (09:52→23:20)
[2017-09-25] MEDS: FUROSEMIDE 40 MG TABLET (FP) PO SCH (09:53)
[2017-09-25] MEDS: DOXAZOSIN MESYLATE 4 MG TABLET PO SCH (09:53)
[2017-09-25] MEDS: SODIUM BICARBONATE 325 MG TABLET PO SCH ×2 (09:54→23:21)
[2017-09-25] MEDS: HEPARIN NA (PORCINE) 5,000 UNITS/ML 1ML VIAL SQ SCH ×2 (09:54→23:20)
--- NOTE | 2017-09-25 09:55 | PN ---
Physical Exam: SUBJECTIVE: Patient seen and examined at the bedside. Feels weak, report feeling congested. OBJECTIVE: wet cough noted, congestion on bilateral lung [place] and now with fever of 101.9 Repeat chest xray ordered Sinus tachy 114 on monitor technician Vital Signs Period Temp Pulse Resp BP Sys/Gutierrez Pulse Ox Last 24 Hr 98.5 F-99.4 F 77-108 18-18 111-157/68-94 95-98 GENERAL: The patient is awake, alert, and fully oriented, in no acute distress. HEAD: Normal with no signs of trauma. EYES: PERRL, extraocular movements intact, sclera anicteric, conjunctiva clear. No ptosis. ENT: Ears normal, nares patent, oropharynx clear without exudates, moist mucous membranes. NECK: Trachea midline, full range of motion, supple. LUNGS: diminished breath sounds bilaterally, congestion noted on bilateral upper and lower lobes, tolerating room air HEART: Regular rate and rhythm, S1, S2 without murmur, rub or gallop. ABDOMEN: Soft, nontender, nondistended, normoactive bowel sounds, no guarding, no rebound, no hepatosplenomegaly, no masses. EXTREMITIES: no edema. NEUROLOGICAL: Normal speech, gait not observed. PSYCH: Normal mood, normal affect. SKIN: LUE preserved for possible AV fistula Laboratory Results - last 24 hr 09/24/17 09/24/17 09/24/17 11:24 11:24 16:00 WBC 12.2 H D RBC 3.92 L Hgb 11.2 L Hct 34.6 L MCV 88.5 MCH 28.5 MCHC 32.3 RDW 16.4 H Plt Count 333 MPV 9.3 D Neutrophils % 84.2 H Lymphocytes % 3.7 L D Monocytes % 10.9 H Eosinophils % 0.7 Basophils % 0.5 Nucleated RBC % 0 Sodium 120 L* D Potassium 6.3 H* D Chloride 86 L D Carbon Dioxide 17 L D Anion Gap 17 H BUN 112 H* D Creatinine 11.8 H* D Creat Clearance w eGFR 4.39 POC Glucometer Random Glucose 533 H* D Calcium 8.4 L Magnesium 2.4 D Total Bilirubin 0.6 D AST 8 L D ALT 13 D Alkaline Phosphatase 118 H D Total Protein 6.7 Albumin 2.5 L Urine Color Yellow Urine Appearance Turbid Urine pH 5.0 Ur Specific Diana 1.015 Urine Protein 2+ H Urine Glucose (UA) Negative Urine Ketones Negative Urine Blood 1+ H Urine Nitrite Negative Urine Bilirubin Negative Urine Urobilinogen Negative Ur Leukocyte Esterase 2+ H Urine WBC (Auto) 807 Urine RBC (Auto) 6 Amorphous Urates Moderate Urine Bacteria Many 09/24/17 09/24/17 09/25/17 16:43 23:00 06:29 WBC RBC Hgb Hct MCV MCH MCHC RDW Plt Count MPV Neutrophils % Lymphocytes % Monocytes % Eosinophils % Basophils % Nucleated RBC % Sodium Potassium Chloride Carbon Dioxide Anion Gap BUN Creatinine Creat Clearance w eGFR POC Glucometer > 400 356 471 Random Glucose Calcium Magnesium Total Bilirubin AST ALT Alkaline Phosphatase Total Protein Albumin Urine Color Urine Appearance Urine pH Ur Specific Diana Urine Protein Urine Glucose (UA) Urine Ketones Urine Blood Urine Nitrite Urine Bilirubin Urine Urobilinogen Ur Leukocyte Esterase Urine WBC (Auto) Urine RBC (Auto) Amorphous Urates Urine Bacteria 09/25/17 09/25/17 09/25/17 06:30 06:30 06:31 WBC 12.5 H RBC 3.78 L Hgb 10.9 L Hct 33.8 L MCV 89.3 MCH 28.8 MCHC 32.3 RDW 16.6 H Plt Count 366 MPV 9.2 Neutrophils % 80.4 Lymphocytes % 5.7 L D Monocytes % 12.5 H Eosinophils % 0.9 Basophils % 0.5 Nucleated RBC % 0 Sodium 128 L Potassium 5.1 Chloride 90 L Carbon Dioxide 20 L Anion Gap 18 H BUN 99 H Creatinine 10.8 H* Creat Clearance w eGFR 4.86 POC Glucometer 425 Random Glucose 296 H D Calcium 8.6 Magnesium 2.2 Total Bilirubin 0.9 D AST 14 L D ALT 14 Alkaline Phosphatase 118 H Total Protein 7.0 Albumin 2.7 L Urine Color Urine Appearance Urine pH Ur Specific Diana Urine Protein Urine Glucose (UA) Urine Ketones Urine Blood Urine Nitrite Urine Bilirubin Urine Urobilinogen Ur Leukocyte Esterase Urine WBC (Auto) Urine RBC (Auto) Amorphous Urates Urine Bacteria Active Medications Generic Name Dose Route Start Last Admin Trade Name Freq PRN Reason Stop Dose Admin Acetaminophen 650 mg 09/25/17 09:20 Tylenol - PO Q6H PRN PAIN LEVEL 7 - 10 Amlodipine Besylate 10 mg 09/25/17 10:00 Norvasc - PO DAILY IGGY Doxazosin Mesylate 4 mg 09/25/17 10:00 Cardura - PO DAILY IGGY Furosemide 80 mg 09/25/17 10:00 Lasix - PO DAILY IGGY Gabapentin 100 mg 09/24/17 22:00 09/24/17 22:57 Neurontin - PO 100 mg BID IGGY Administration Heparin Sodium (Porcine) 5,000 unit 09/24/17 22:00 09/24/17 22:57 Heparin - SQ 5,000 unit BID IGGY Administration Sodium Chloride 250 mls @ 3,000 mls/hr 09/24/17 14:09 Normal Saline - IV 09/25/17 14:09 PRN PRN Hypotension during Dialysis Insulin Aspart 1 vial 09/25/17 09:16 Novolog Vial Sliding Scale - SQ ACHS [facility] Protocol Insulin Detemir 10 units 09/25/17 10:00 Levemir Vial SQ BID@0700,1000 IGGY Metoprolol Tartrate 50 mg 09/24/17 22:00 09/24/17 22:57 Lopressor - PO 50 mg BID IGGY Administration Sevelamer Carbonate 1,600 mg 09/24/17 19:45 09/24/17 22:56 Renvela - PO 1,600 mg TIDCM IGGY Administration Sodium Bicarbonate 325 mg 09/24/17 22:00 09/24/17 22:58 Sodium Bicarbonate - PO 325 mg BID IGGY Administration Trazodone HCl 300 mg 09/24/17 22:00 09/24/17 22:57 Desyrel - PO 300 mg HS IGGY Administration ASSESSMENT/PLAN: Patient is a 61 year old male with a significant past medical history of diabetes mellitus, hypertension, ESRD (Tues, Thurs, Sat), osteoarthritis and left below the knee amputation. He presents to the ER after being found to have + blood cultures from his last dialysis session 1 week ago from his right permacath site. Patient states that for the last 10 days he felt generally weaker, but denies fevers, chills, nausea or vomiting. He reports pain on the right side of his head and neck. No visual defects, no vomiting or nausea. He denies any pain from his right permacath site nor surrounding tissue. His last dialysis was 5 days ago. Labs in the ER he was noted to have electrolyte imbalance which included hyperkalemia of 6.3 and was given insulin, d50 and calcium gluconate. ID: Sepsis Bacteremia + blood cultures from right permacath Permacath removed Repeat blood cultures pending organism given Vanco in the ED, vanco given per ID and renal Monitor labs, vitals No signs of infection noted on right permacath site or surrounding tissue For Ct of neck to rule out abscess ID consulted Renal: ESRD Dialysis yesterday, next session tomorrow Vascular consult for possible AV fistula placement once blood cultures negative Endocrine Diabetes On SS and Levemir CV: Hypertension, chronic continue home medications Infected Permacath/generalized weakness Echo ordered F.E.N. Fluids: none needed Electrolyes: monitor Nutrition: renal diet Prophy: DVT: Heparin GI: deferred Visit type - Emergency Visit Emergency Visit: Yes ED Registration Date: 09/24/17 Care time: The patient presented to the Emergency Department on the above date and was hospitalized for further evaluation of their emergent condition. - New Patient This patient is new to me today: No - Critical Care Critical Care patient: No - Discharge Referral Referred to [facility] No
[2017-09-25] MEDS ORDERED: INSULIN (LEVEMIR) 100 UNITS/ML UNITS SQ SCH (10:00)
[2017-09-25] MEDS: METOPROLOL TARTRATE 50 MG TABLET (FP) PO SCH ×2 (10:03→23:20)
[2017-09-25] MEDS: oxyCODONE HCL 5 MG TABLET PO PRN ×2 (10:20→23:32)
[2017-09-25] MEDS: INSULIN (LEVEMIR) 100 UNITS/ML UNITS SQ SCH ×2 (10:24→16:12)
--- NOTE | 2017-09-25 10:52 | PROC ---
Procedure Note Procedure: History: 62yo M with history of bactermia and concern for infected tunneled dialysis catheter, presents for catheter removal. Preop Diagnosis: Bacteremia Postop Diagnosis: same as above Procedure: Consent was obtained and all risks and benefits of procedure were explained. Pt agreed to procedure and signed consent. Pt was placed supine on the bed and the catheter was prepped and draped in a sterile fashion. Catheter was removed with blunt dissection. Pt tolerated the procedure well. Clean dressing was placed over catheter site. Please contact Vascular team for placement of temporary dialysis catheter as needed.
[2017-09-25 11:11] LABS: INR 1.14 (0.82-1.09); PROTHROMBIN TIME (PATIENT) 12.9 SEC (9.7-13.0)
--- NOTE | 2017-09-25 12:40 | PN ---
Progress Note (short form) - Note Progress Note: PULMONARY CONSULTATION DICTATED 09/25/17 IMP GRAM+ BACTEREMIA/SEPSIS DYSPNEA R/O PNEUMONIA ESRD ON HD PVD S/P LEFT BKA IDDM HTN PLAN IV ABX O2 INHALED BRONCHODILATORS F/U CHEST X-RAY ECHO HD PER RENAL DR BAUM Problem List - Problems (1) Sepsis Code(s): A41.9 - SEPSIS, UNSPECIFIED ORGANISM (2) ESRD (end stage renal disease) Code(s): N18.6 - END STAGE RENAL DISEASE (3) Diabetes mellitus, insulin dependent (IDDM), controlled Code(s): E11.9 - TYPE 2 DIABETES MELLITUS WITHOUT COMPLICATIONS; Z79.4 - [facility] (CURRENT) USE OF INSULIN (4) Amputation, below knee, unilateral, traumatic Code(s): S88.119A - COMPLETE TRAUM AMP AT LEV BETW KN & ANKL, UNSP LOW LEG, INIT (5) Bacteremia due to Gram-positive bacteria Code(s): R78.81 - BACTEREMIA (6) Dyspnea Code(s): R06.00 - DYSPNEA, UNSPECIFIED (7) Acute dyspnea Code(s): R06.00 - DYSPNEA, UNSPECIFIED (8) Chest congestion Code(s): R09.89 - OTH SYMPTOMS AND SIGNS INVOLVING THE CIRC AND RESP SYSTEMS (9) Peripheral vascular disease due to secondary diabetes Code(s): E13.51 - OTH DIABETES W DIABETIC PERIPHERAL ANGIOPATHY W/O GANGRENE (10) HTN (hypertension) Code(s): I10 - ESSENTIAL (PRIMARY) HYPERTENSION Qualifiers: Hypertension type: essential hypertension Qualified Code(s): I10 - Essential (primary) hypertension
[2017-09-25] MEDS ORDERED: SODIUM CHLORIDE 250 ML IV PRN ×2 (12:59→17:41)
--- NOTE | 2017-09-25 13:05 | CONS ---
DATE OF CONSULTATION: 09/25/2017 REFERRING PHYSICIAN: Chelly Tabor NP HISTORY OF PRESENT ILLNESS: The patient is a 62-year-old black male with a past medical history of endstage renal disease, on hemodialysis 3 times weekly, diabetes mellitus, diabetic nephropathy, peripheral vascular disease, status post left BKA, history of tobacco use, a few cigarettes a day, currently still smoking 1cigarette a day, admitted to [facility] status post outpatient blood cultures that are positive. The patient apparently was ill for the 4 to 5 days prior to admission. Apparently he went and had blood cultures drawn which returned positive with gram-positive cocci and was advised to go to the emergency room. On admission he was begun on antibiotic therapy. Of note is early today he developed increasing shortness of breath and chest congestion. Chest x-ray performed did not reveal any acute infiltrates. Patient denies any history of COPD or asthma in the past. He does have a history of exposure to the fumes of the [place] on January 07. He denies any recent travel. There is no history of DVT or PE in the past. PAST MEDICAL HISTORY: Again includes endstage renal disease, on hemodialysis, peripheral vascular disease, status post left BKA, diabetes, diabetic nephropathy, diabetic neuropathy , irregular heartbeat, osteoarthritis, hypertension and depression. REVIEW OF SYSTEMS: Positive chest congestion. Positive shortness of breath. Positive fever. No chest pain. No palpitations. Positive mild cough. No hemoptysis. No abdominal pain. CURRENT MEDICATIONS: Include sodium bicarbonate, Cardura, Tylenol, heparin, Neurontin, Desyrel, Lopressor, Norvasc, normal saline, Levemir, Lasix, Roxicodone, Renvela and he was administered vancomycin in the emergency room. PHYSICAL EXAMINATION: General: The patient is a thin black male, well developed, well nourished, awake, mildly dyspneic, in no acute distress. Vital Signs: His temperature is 101.9, respiratory rate is 18, O2 saturation 94% on room air, heart rate is 110. HEENT: Normocephalic, atraumatic. Neck: Supple. Heart: Tachycardic, S1, S2. Chest: Bilateral rhonchi throughout. Abdomen: Soft. Bowel sounds are positive. Extremities: Status post left BKA. LABORATORIES: WBC 12.5, hemoglobin 10.9, hematocrit 33.8 with a platelet count of 366,000. BUN is 99, creatinine 10.8. Chest x-ray revealed no acute infiltrates or effusions. There is mild elevation of the right hemidiaphragm and mild atelectatic change in the left and the right base. IMPRESSION: 1. Gram--positive bacteremia sepsis, etiology to be determined. 2. Chest congestion, rule out possible pneumonia. 3. Endstage renal disease, on hemodialysis. 4. Peripheral vascular disease, status post left below-knee amputation. 5. Diabetes mellitus. 6. Hypertension. PLAN: Broad-spectrum antibiotics. Supplemental O2. Obtain followup chest x-rays. Culture. Inhaled bronchodilators. Hemodialysis as per Renal. Monitor electrolytes. Thank you. GERMÁN BAUM M.D. [id number]
[2017-09-25] MEDS ORDERED: VANCOMYCIN 1,000 MG in DEXTROSE 5%-WATER - 250 ML IVPB ONE (14:10)
--- NOTE | 2017-09-25 14:15 | CON.ID ---
Consult Consult Specialty:: infectious diseases Reason for Consultation:: ams fever,positive blood cx - History of Present Illness Chief Complaint: fever History of Present Illness: 62 year old AA gentleman with PMhx of ESRD on HD due to suspected diabetic nephropathy, DM, Hypertension, PVD was sned top the hospital because of positive blood cx that were positive for gram positive Cocci. Pt reports that he has been feeling ill for the last 4-5 days. Missed his last dialysis on Saturday. Has mild sob. No fever. No N/V/D. patient was admitted and blood cx resend which is showing gm positve cocci. patients dialysis catheter was removed. currently patient is spiking high grade fevers and also going in and out of confusion able to answer some questions but he is not remembering a lot at tis moment also according to the nursing staff patient was refusing to take tylenolol for his fevers' - History Source History Provided By: Medical Record Limitations to Obtaining History: Clinical Condition - Past Medical History [employer]: Yes: Peripheral Neuropathy Cardio/Vascular: Yes: HTN Gastrointestinal: Yes: GERD Renal/: Yes: Renal Inusuff Infectious Disease: Yes: Other (osteomyelitis) Psych: Yes: Depression Musculoskeletal: Yes: Other (chronic pain) Rheumatology: Yes: Other (history of osteomyelitis) Endocrine: Yes: Diabetes Mellitus - Past Surgical History Past Surgical History: Yes: Amputation (transmetatarsal of Left foot) - Alcohol/Substance Use Hx Alcohol Use: No Number of Drinks Daily: 2 (weekends) - Smoking History Smoking history: Current every day smoker Have you smoked in the past 12 months: Yes Aproximately how many cigarettes per day: 1 If you are a former smoker, when did you quit?: 2 - Social History Usual Living Arrangement: Correction ADL: Support Services History of Recent Travel: No Home Medications - Allergies Allergies/Adverse Reactions: Allergies Allergy/AdvReac Type Severity Reaction Status Date / Time shellfish derived Allergy Severe "HIVES" Verified 03/18/17 14:03 No Known Drug Allergies Allergy Verified 03/18/17 14:03 - Home Medications Home Medications: Ambulatory Orders Ergocalciferol (Vitamin D2) [Vitamin D2] 50,000 unit PO WEEKLY 03/18/17 Albuterol 0.083% Nebulizer Coretta [Ventolin 0.083% Nebulizer Soln -] 1 amp NEB Q4H PRN #120 amp 08/23/17 Amlodipine Besylate [Norvasc -] 10 mg PO DAILY #30 tablet 08/23/17 Ascorbate Calcium [Vitamin C] 500 mg PO DAILY #30 tablet 08/23/17 Doxazosin Mesylate [Cardura] 4 mg PO DAILY #30 tablet 08/23/17 Duloxetine HCl 30 mg PO DAILY #30 capsule. 08/23/17 Fluticasone Prop 0.05% Nasal [Flonase -] 1 - 2 spray NS DAILY #1 spray.pump Folic Acid - 1 mg PO DAILY #30 tablet 08/23/17 Furosemide [Lasix] 80 mg PO DAILY #30 tablet 08/23/17 Insulin Aspart [Novolog Flexpen] See Protocol SQ ACHS #1 insuln.pen 08/23/17 Metoprolol Tartrate [Lopressor -] 50 mg PO BID #60 tablet 08/23/17 Mirtazapine [Remeron -] 30 mg PO HS #30 tablet 08/23/17 Gabapentin 100 mg PO BID 09/24/17 Insulin Detemir [Levemir Flextouch] 15 unit SQ HS 09/24/17 Oxycodone HCl/Acetaminophen [Percocet 10-325 mg Tablet] 1 each PO Q6H PRN MDD 3 09/24/17 Sevelamer Carbonate 2 tab PO TID 09/24/17 Sodium Bicarbonate 325 gr PO BID 09/24/17 traZODone HCL [Desyrel -] 300 mg PO HS 09/24/17 Family Disease History - Family Disease History Family Disease History: Diabetes: Mother (), Other: Father (little contact), Mother Review of Systems Unable to obtain ROS, reason: unable Physical Exam Vital Signs: Vital Signs Temperature 102.7 F H 09/25/17 14:09 Pulse Rate 94 H 09/25/17 14:09 Respiratory Rate 20 09/25/17 14:09 Blood Pressure 110/58 09/25/17 14:09 O2 Sat by Pulse Oximetry (%) 96 09/24/17 21:00 Constitutional: Yes: Mild Distress, Other Eyes: Yes: Conjunctiva Clear HENT: Yes: Atraumatic Neck: Yes: Supple, Trachea Midline Cardiovascular: Yes: Regular Rate and Rhythm Respiratory: Yes: Regular, CTA Bilaterally Gastrointestinal: Yes: Normal Bowel Sounds, Soft Musculoskeletal: Yes: WNL Extremities: Yes: WNL Wound/Incision: Yes: Clean/Dry Neurological: Yes: Alert, Confusion Psychiatric: Yes: Alert, Other Labs: CBC, BMP 09/25/17 06:30 09/25/17 06:30 Imaging - Results Chest X-ray: Report Reviewed, Image Reviewed Assessment/Plan this patient in sepsis because of bacteremia gm positive bacteremia esrd fever hyperkalemia hyponatremia it seems patient was having neck pain,ct ordered of the neck and vertebra to see any infection plan will give a dose of vanco await for cx report very close watch on the patient if the patient becomes worse shift to icu also echo rest as per the teams
[2017-09-25] MEDS: ACETAMINOPHEN 325 MG TABLET (FP) PO PRN (14:17)
[2017-09-25] MEDS: ALBUTEROL SO4 2.5/IPRATROPIUM 0.5 INH SOL 3 ML VIAL.NEB. NEB SCH ×2 (16:00→21:22)
--- NOTE | 2017-09-25 17:40 | PN ---
Progress Note (short form) - Note Progress Note: Renal Follow up for ESRD on HD Pt seen and examined at the bedside awake and alert no acute complaints Vital Signs Temperature 102.7 F H 09/25/17 14:09 Pulse Rate 94 H 09/25/17 14:09 Respiratory Rate 20 09/25/17 14:09 Blood Pressure 110/58 09/25/17 14:09 O2 Sat by Pulse Oximetry (%) 94 L 09/25/17 09:00 Intake & Output 09/22/17 09/23/17 09/24/17 09/25/17 23:59 23:59 23:59 23:59 Intake Total 150 570 Output Total 100 Balance 150 470 Weight 80 kg 80.739 kg NAD awake and alert RRR CTA soft NT/ND no LE edema CBC, BMP 09/25/17 06:30 09/25/17 06:30 Current Medications Acetaminophen (Tylenol -) 650 mg PO Q6H PRN PRN Reason: PAIN LEVEL 7 - 10 Last Admin: 09/25/17 14:17 Dose: 650 mg Albuterol/Ipratropium (Duoneb -) 1 amp NEB RQID [facility] Last Admin: 09/25/17 16:00 Dose: 1 amp Amlodipine Besylate (Norvasc -) 10 mg PO DAILY [facility] Last Admin: 09/25/17 09:50 Dose: Not Given Doxazosin Mesylate (Cardura -) 4 mg PO DAILY [facility] Last Admin: 09/25/17 09:53 Dose: 4 mg Furosemide (Lasix -) 80 mg PO DAILY [facility] Last Admin: 09/25/17 09:53 Dose: 80 mg Gabapentin (Neurontin -) 100 mg PO BID [facility] Last Admin: 09/25/17 09:52 Dose: 100 mg Heparin Sodium (Porcine) (Heparin -) 5,000 unit SQ BID [facility] Last Admin: 09/25/17 09:54 Dose: 5,000 unit Sodium Chloride (Normal Saline -) 250 mls @ 3,000 mls/hr IV PRN PRN PRN Reason: Hypotension during Dialysis Stop: 09/26/17 12:59 Insulin Aspart (Novolog Vial Sliding Scale -) 1 vial SQ ACHS [facility]; Protocol Last Admin: 09/25/17 12:00 Dose: Not Given Insulin Detemir (Levemir Vial) 10 units SQ BID@1000,1700 [facility] Last Admin: 09/25/17 16:12 Dose: Not Given Metoprolol Tartrate (Lopressor -) 50 mg PO BID [facility] Last Admin: 09/25/17 10:03 Dose: 50 mg Oxycodone HCl (Roxicodone -) 5 mg PO Q6H PRN PRN Reason: PAIN LEVEL 7 - 10 Last Admin: 09/25/17 10:20 Dose: 5 mg Sevelamer Carbonate (Renvela -) 1,600 mg PO TIDCM [facility] Last Admin: 09/25/17 13:30 Dose: 1,600 mg Sodium Bicarbonate (Sodium Bicarbonate -) 325 mg PO BID [facility] Last Admin: 09/25/17 09:54 Dose: 325 mg Trazodone HCl (Desyrel -) 300 mg PO HS [facility] Last Admin: 09/24/17 22:57 Dose: 300 mg 62 year old AA gentleman with PMhx of ESRD on HD (TTS) secondary to suspected diabetic nephropathy, DM, Hypertension, PVD who presented outpatient blood cultures that were positive for gram positive Cocci. #ESRD on HD #Hyperkalemia #Hyponatremia #Gram + bacteremia in setting fo indwelling dialysis catheter #Anemia blood cultures positive s/p dialysis and vanco yesterday permacath removed today for dialysis tomorrow via temporary catheter tomorrow Renal Diet, 1.2L Fluid restriction Miguel Jansen DO
[2017-09-25] MEDS ORDERED: traZODone HCL 50 MG TABLET (FP) ONE (23:00)
[2017-09-25] MEDS: traZODone HCL 100 MG TABLET (FP) PO SCH (23:20)
[2017-09-26] MEDS: ACETAMINOPHEN 325 MG TABLET (FP) PO PRN (01:00)
[2017-09-26] MEDS ORDERED: VANCOMYCIN 1,000 MG in DEXTROSE 5%-WATER - 250 ML IVPB ONE (06:00)
[2017-09-26] MEDS: INSULIN SLIDING SCALE (NOVOLOG) 1 VIAL SQ SCH ×3 (06:08→17:00)
[2017-09-26] MEDS: ALBUTEROL SO4 2.5/IPRATROPIUM 0.5 INH SOL 3 ML VIAL.NEB. NEB SCH ×4 (07:20→21:13)
[2017-09-26 07:40] LABS: BASO % 0.3 % (0-2.0); EOS % 0.8 % (0-4.5); HEMATOCRIT 30.4 % (35.4-49); LYMPH % 6.3 % (8-40); MCH 29.1 pg (25.7-33.7); MEAN CELL VOLUME 88.4 fl (80-96); MONO % 14.5 % (3.8-10.2); NEUT % 78.1 % (42.8-82.8); PLATELET COUNT 327 K/MM3 (134-434); RBC 3.44 M/mm3 (4.00-5.60); RDW 16.4 % (11.9-15.9); WHITE BLOOD COUNT 12.3 K/mm3 (4.0-10.0)
[2017-09-26 07:55] LABS: ALBUMIN 2.2 g/dl (3.4-5.0); ANION GAP 16 (8-16); CALCIUM 8.2 mg/dL (8.5-10.1); CHLORIDE 94 mmol/L (98-107); CO2 21 mmol/L (21-32); GLUCOSE,RANDOM 86 mg/dL (74-106); POTASSIUM 4.6 mmol/L (3.5-5.1); SODIUM 131 mmol/L (136-145)
[2017-09-26 07:59] LABS: ALK PHOS 90 U/L (45-117); BILIRUBIN,TOTAL 0.6 mg/dL (0.2-1.0); CHOLESTEROL 92 mg/dL (50-200); HDL CHOLESTEROL 28 mg/dL (40-60); SGOT/AST 19 U/L (15-37); SGPT/ALT 12 U/L (12-78); TOT PROT 5.9 g/dl (6.4-8.2); TRIGLYCERIDES 158 mg/dL (35-160)
[2017-09-26] MEDS ORDERED: PT OWN MED DRAWER 7, Y5N ONE ×2 (08:36→10:04)
[2017-09-26] MEDS: SEVELAMER CARBONATE 800 MG TAB (FP) PO SCH ×3 (09:00→17:50)
[2017-09-26 09:09] LABS: BLOOD UREA NITROGEN 115 mg/dL (7-18); CREATININE 11.9 mg/dL (0.7-1.3)
--- NOTE | 2017-09-26 09:12 | PN ---
Physical Exam: SUBJECTIVE: Patient seen and examined at the bedside. OBJECTIVE: Fevers overnight, patient reports confusion with fevers but feels improved today Also having lots of coughing with yellow sputum, will order sputum culture, + scattered rhonchi bun/creat 115/11.9 right permacath removed on 09/25 Vital Signs Period Temp Pulse Resp BP Sys/Gutierrez Pulse Ox Last 24 Hr 99.8 F-102.7 F 93-110 18-20 109-133/58-68 95 GENERAL: The patient is awake, alert, and fully oriented, in no acute distress. HEAD: Normal with no signs of trauma. EYES: PERRL, extraocular movements intact, sclera anicteric, conjunctiva clear. No ptosis. ENT: Ears normal, nares patent, oropharynx clear without exudates, moist mucous membranes. NECK: Trachea midline, full range of motion, supple. LUNGS: scattered rhonchi bilaterally HEART: Regular rate and rhythm, S1, S2 without murmur, rub or gallop. ABDOMEN: Soft, nontender, nondistended, normoactive bowel sounds, no guarding, no rebound, no hepatosplenomegaly, no masses. EXTREMITIES: Left BKA, skin intact, NEUROLOGICAL: Normal speech, gait not observed. PSYCH: Normal mood, normal affect. SKIN: Warm, dry, normal turgor, no rashes or lesions noted Laboratory Results - last 24 hr 09/25/17 09/25/17 09/25/17 06:30 06:30 10:38 WBC RBC Hgb Hct MCV MCH MCHC RDW Plt Count MPV Neutrophils % Lymphocytes % Monocytes % Eosinophils % Basophils % Nucleated RBC % PT with INR 12.90 INR 1.14 Sodium Potassium Chloride Carbon Dioxide Anion Gap BUN Creatinine Creat Clearance w eGFR POC Glucometer Random Glucose Hemoglobin A1c % 11.6 H D Calcium Total Bilirubin AST ALT Alkaline Phosphatase Total Protein Albumin Triglycerides Cholesterol Total LDL Cholesterol HDL Cholesterol Random Vancomycin Acetone, Qual Trace 09/25/17 09/25/17 09/25/17 11:40 16:05 23:19 WBC RBC Hgb Hct MCV MCH MCHC RDW Plt Count MPV Neutrophils % Lymphocytes % Monocytes % Eosinophils % Basophils % Nucleated RBC % PT with INR INR Sodium Potassium Chloride Carbon Dioxide Anion Gap BUN Creatinine Creat Clearance w eGFR POC Glucometer 218 189 212 Random Glucose Hemoglobin A1c % Calcium Total Bilirubin AST ALT Alkaline Phosphatase Total Protein Albumin Triglycerides Cholesterol Total LDL Cholesterol HDL Cholesterol Random Vancomycin Acetone, Qual 09/26/17 09/26/17 09/26/17 05:39 07:07 07:07 WBC 12.3 H RBC 3.44 L Hgb 10.0 L Hct 30.4 L MCV 88.4 MCH 29.1 MCHC 33.0 RDW 16.4 H Plt Count 327 MPV 9.0 Neutrophils % 78.1 Lymphocytes % 6.3 L Monocytes % 14.5 H Eosinophils % 0.8 Basophils % 0.3 Nucleated RBC % 0 PT with INR INR Sodium Potassium Chloride Carbon Dioxide Anion Gap BUN Creatinine Creat Clearance w eGFR POC Glucometer 82 Random Glucose Hemoglobin A1c % Calcium Total Bilirubin AST ALT Alkaline Phosphatase Total Protein Albumin Triglycerides Cholesterol Total LDL Cholesterol HDL Cholesterol Random Vancomycin 27.975 Acetone, Qual 09/26/17 07:07 WBC RBC Hgb Hct MCV MCH MCHC RDW Plt Count MPV Neutrophils % Lymphocytes % Monocytes % Eosinophils % Basophils % Nucleated RBC % PT with INR INR Sodium 131 L Potassium 4.6 Chloride 94 L Carbon Dioxide 21 Anion Gap 16 BUN 115 H* Creatinine 11.9 H* Creat Clearance w eGFR 4.35 POC Glucometer Random Glucose 86 D Hemoglobin A1c % Calcium 8.2 L Total Bilirubin 0.6 D AST 19 D ALT 12 Alkaline Phosphatase 90 D Total Protein 5.9 L Albumin 2.2 L Triglycerides 158 Cholesterol 92 Total LDL Cholesterol 51 HDL Cholesterol 28 L Random Vancomycin Acetone, Qual Active Medications Generic Name Dose Route Start Last Admin Trade Name Freq PRN Reason Stop Dose Admin Acetaminophen 650 mg 09/25/17 09:20 09/26/17 01:00 Tylenol - PO 650 mg Q6H PRN Administration PAIN LEVEL 7 - 10 Albuterol/Ipratropium 1 amp 09/25/17 16:00 09/26/17 07:20 Duoneb - NEB 1 amp RQID IGGY Administration Amlodipine Besylate 10 mg 09/25/17 10:00 09/25/17 09:50 Norvasc - PO Not Given DAILY IGGY Doxazosin Mesylate 4 mg 09/25/17 10:00 09/25/17 09:53 Cardura - PO 4 mg DAILY IGGY Administration Furosemide 80 mg 09/25/17 10:00 09/25/17 09:53 Lasix - PO 80 mg DAILY IGGY Administration Gabapentin 100 mg 09/24/17 22:00 09/25/17 23:20 Neurontin - PO 100 mg BID IGGY Administration Heparin Sodium (Porcine) 5,000 unit 09/24/17 22:00 09/25/17 23:20 Heparin - SQ 5,000 unit BID IGGY Administration Sodium Chloride 250 mls @ 3,000 mls/hr 09/25/17 12:59 Normal Saline - IV 09/26/17 12:59 PRN PRN Hypotension during Dialysis Vancomycin HCl 1,000 mg/ 250 mls @ 166.667 mls/hr 09/26/17 06:00 Dextrose IVPB 09/26/17 07:29 ONCE ONE Protocol Insulin Aspart 1 vial 09/25/17 09:16 09/26/17 06:08 Novolog Vial Sliding Scale - SQ Not Given ACHS IGGY Protocol Insulin Detemir 10 units 09/25/17 10:00 09/25/17 16:12 Levemir Vial SQ Not Given BID@1000,1700 IGGY Metoprolol Tartrate 50 mg 09/24/17 22:00 09/25/17 23:20 Lopressor - PO 50 mg BID IGGY Administration Oxycodone HCl 5 mg 09/25/17 10:01 09/25/17 23:32 Roxicodone - PO 5 mg Q6H PRN Administration PAIN LEVEL 7 - 10 Sevelamer Carbonate 1,600 mg 09/24/17 19:45 09/26/17 09:00 Renvela - PO 1,600 mg TIDCM IGGY Administration Sodium Bicarbonate 325 mg 09/24/17 22:00 09/25/17 23:21 Sodium Bicarbonate - PO 325 mg BID IGGY Administration Trazodone HCl 300 mg 09/24/17 22:00 09/25/17 23:20 Desyrel - PO 300 mg HS IGGY Administration ASSESSMENT/PLAN: Patient is a 61 year old male with a significant past medical history of diabetes mellitus, hypertension, ESRD (Tues, Thurs, Sat), osteoarthritis and left below the knee amputation. He presents to the ER after being found to have + blood cultures from his last dialysis session 1 week ago from his right permacath site. Patient reports that for the last 10 days he felt generally weaker, but denies fevers, chills, nausea or vomiting. He reports pain on the right side of his head and neck. No visual defects, no vomiting or nausea. He denies any pain from his right permacath site nor surrounding tissue. Labs in the ER he was noted to have electrolyte imbalance which included hyperkalemia of 6.3 and was given insulin, d50 and calcium gluconate. ID: Sepsis Bacteremia + blood cultures from right permacath with presumptive MRSA UC also growing staph On Vanco renally dosed, started on Zosyn Monitor fevers, labs, vitals Repeat blood cultures today Renal: ESRD dialysis per renal right permacath removed, new femoral shiley placed by vascular Endocrine Diabetes On SS and Levemir CV: Hypertension, controlled continue home medications Infected Permacath/generalized weakness Moderate pericardial effusion, bacteremia Possible CHAKA as per Cardio Echo reviewed F.E.N. Fluids: none needed Electrolyes: monitor Nutrition: renal diet Prophy: DVT: Heparin GI: deferred Visit type - Emergency Visit Emergency Visit: Yes ED Registration Date: 09/24/17 Care time: The patient presented to the Emergency Department on the above date and was hospitalized for further evaluation of their emergent condition. - New Patient This patient is new to me today: No - Critical Care Critical Care patient: No - Discharge Referral Referred to [facility] Med P.C.: No
[2017-09-26] MEDS: FUROSEMIDE 40 MG TABLET (FP) PO SCH (09:19)
[2017-09-26] MEDS: GABAPENTIN 100 MG CAPSULE (FP) PO SCH (09:20)
[2017-09-26] MEDS: SODIUM BICARBONATE 325 MG TABLET PO SCH (09:21)
[2017-09-26] MEDS: HEPARIN NA (PORCINE) 5,000 UNITS/ML 1ML VIAL SQ SCH (09:22)
[2017-09-26] MEDS: INSULIN (LEVEMIR) 100 UNITS/ML UNITS SQ SCH ×2 (10:06→17:30)
[2017-09-26] MEDS: DOXAZOSIN MESYLATE 4 MG TABLET PO SCH (10:07)
[2017-09-26] MEDS: METOPROLOL TARTRATE 50 MG TABLET (FP) PO SCH (10:07)
[2017-09-26] MEDS: amLODIPine BESYLATE 10 MG TABLET (FP) PO SCH (10:08)
[2017-09-26 10:52] LABS: PLATELET ESTIMATE NORMAL
--- NOTE | 2017-09-26 11:26 | CON.CARD ---
Consult Consult Specialty:: Cardiology Referred by:: Hospitalist Medicine Reason for Consultation:: MSSA bacteremia - History of Present Illness Chief Complaint: Fever, malaise History of Present Illness: This is a 62 year old AA gentleman with PMhx of ESRD on HD (TTS) secondary to suspected diabetic nephropathy, DM, Hypertension, PVD who presented outpatient blood cultures that were positive for MRSA. Pt reports that he has been feeling ill for the last 4-5 days. Missed his last dialysis on Saturday. Has mild sob. Fevers with altered sensorium. No N/V/D. + PEREZ, neck stiffness. No discharge from catheter site since removed. - History Source History Provided By: Patient Limitations to Obtaining History: No Limitations - Past Medical History [employer]: Yes: Peripheral Neuropathy Cardio/Vascular: Yes: HTN Gastrointestinal: Yes: GERD Renal/: Yes: Renal Inusuff Infectious Disease: Yes: Other (osteomyelitis) Psych: Yes: Depression Musculoskeletal: Yes: Other (chronic pain) Rheumatology: Yes: Other (history of osteomyelitis) Endocrine: Yes: Diabetes Mellitus - Past Surgical History Past Surgical History: Yes: Amputation (transmetatarsal of Left foot) - Alcohol/Substance Use Hx Alcohol Use: No Number of Drinks Daily: 2 (weekends) - Smoking History Smoking history: Current every day smoker Have you smoked in the past 12 months: Yes Aproximately how many cigarettes per day: 1 If you are a former smoker, when did you quit?: 2 - Social History Usual Living Arrangement: Assisted ADL: Support Services History of Recent Travel: No Home Medications - Allergies Allergies/Adverse Reactions: Allergies Allergy/AdvReac Type Severity Reaction Status Date / Time shellfish derived Allergy Severe "HIVES" Verified 03/18/17 14:03 No Known Drug Allergies Allergy Verified 03/18/17 14:03 - Home Medications Home Medications: Ambulatory Orders Ergocalciferol (Vitamin D2) [Vitamin D2] 50,000 unit PO WEEKLY 03/18/17 Albuterol 0.083% Nebulizer Coretta [Ventolin 0.083% Nebulizer Soln -] 1 amp NEB Q4H PRN #120 amp 08/23/17 Amlodipine Besylate [Norvasc -] 10 mg PO DAILY #30 tablet 08/23/17 Ascorbate Calcium [Vitamin C] 500 mg PO DAILY #30 tablet 08/23/17 Doxazosin Mesylate [Cardura] 4 mg PO DAILY #30 tablet 08/23/17 Duloxetine HCl 30 mg PO DAILY #30 capsule. 08/23/17 Fluticasone Prop 0.05% Nasal [Flonase -] 1 - 2 spray NS DAILY #1 spray.pump Folic Acid - 1 mg PO DAILY #30 tablet 08/23/17 Furosemide [Lasix] 80 mg PO DAILY #30 tablet 08/23/17 Insulin Aspart [Novolog Flexpen] See Protocol SQ ACHS #1 insuln.pen 08/23/17 Metoprolol Tartrate [Lopressor -] 50 mg PO BID #60 tablet 08/23/17 Mirtazapine [Remeron -] 30 mg PO HS #30 tablet 08/23/17 Gabapentin 100 mg PO BID 09/24/17 Insulin Detemir [Levemir Flextouch] 15 unit SQ HS 09/24/17 Oxycodone HCl/Acetaminophen [Percocet 10-325 mg Tablet] 1 each PO Q6H PRN MDD 3 09/24/17 Sevelamer Carbonate 2 tab PO TID 09/24/17 Sodium Bicarbonate 325 gr PO BID 09/24/17 traZODone HCL [Desyrel -] 300 mg PO HS 09/24/17 Family Disease History - Family Disease History Family Disease History: Diabetes: Mother (), Other: Father (little contact), Mother Review of Systems - Review of Systems Constitutional: reports: Fever, Lethargy, Malaise Vital Signs: Vital Signs Temperature 100.1 F H 09/26/17 06:00 Pulse Rate 93 H 09/26/17 06:00 Respiratory Rate 18 09/26/17 06:00 Blood Pressure 109/58 09/26/17 06:00 O2 Sat by Pulse Oximetry (%) 95 09/25/17 21:00 Constitutional: Yes: No Distress, Calm Neck: Yes: Supple Respiratory: Yes: Regular, CTA Bilaterally Gastrointestinal: Yes: Normal Bowel Sounds, Soft Cardiovascular: Yes: Regular Rate and Rhythm JVD: No Carotid Bruit: No Heart Sounds: Yes: S1, S2 Extremities: Yes: Amputation (Left BKA) Edema: No - Other Data Labs, Other Data: CBC, BMP 09/26/17 07:07 09/26/17 07:07 INR, PTT INR 1.14 (0.82-1.09) 09/25/17 10:38 ST @ 108 PAC Ejection Fraction %: LVEF > or = 40 % Imaging - Results Chest X-ray: Report Reviewed (09/24/2017 Min ATX right lung base, right PC SVC, no PTX or effusion) Assessment/Plan 09/25/2017 Echo: Normal LV size and fxn, mild aortic dilatation, moderate pericardial effusion, trace -mid MR 1. MSSA bacteremia suspect line sepsis from indwelling dialysis catheter since removed 2. ESRD on HD TTS referable to suspected diabetic nephropathy with hyperkalemia and hyponatremia 3. 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 Type 2 DM 5. HTN/HCVD 6. PAD 7. Anemia of chronic kidney disease 8. Bacteruria 9. PAD s/p left BKA P:1. Abx course per ID, observe for clearance post catheter removal. If bacteremia persists, will consider CHAKA to exclude endocarditis, f/u neck CT 2. HD per renal to address pericardial effusion and uremic pericaditis, not in tamponade 3. Continue Norvasc 10 qd, Cardura 4 qd, Lasix 80 qd, Lopressor 50 bid 4. Thank you for consultative opportunity
--- NOTE | 2017-09-26 11:51 | PN ---
Progress Note (short form) - Note Progress Note: Resting in NAD. SOB slightly better. No CP. Intake & Output 09/23/17 09/24/17 09/25/17 09/26/17 23:59 23:59 23:59 23:59 Intake Total 150 880 240 Output Total 100 Balance 150 780 240 Weight 176 lb 5.917 oz 178 lb Last Vital Signs Temp Pulse Resp BP Pulse Ox 100.1 F H 93 H 18 109/58 95 09/26/17 06:00 09/26/17 06:00 09/26/17 06:00 09/26/17 06:00 09/25/17 21:00 Active Medications Acetaminophen (Tylenol -) 650 mg PO Q6H PRN PRN Reason: PAIN LEVEL 7 - 10 Last Admin: 09/26/17 01:00 Dose: 650 mg Albuterol/Ipratropium (Duoneb -) 1 amp NEB RQID [facility] Last Admin: 09/26/17 11:29 Dose: 1 amp Amlodipine Besylate (Norvasc -) 10 mg PO DAILY [facility] Last Admin: 09/26/17 10:08 Dose: 10 mg Doxazosin Mesylate (Cardura -) 4 mg PO DAILY [facility] Last Admin: 09/26/17 10:07 Dose: 4 mg Furosemide (Lasix -) 80 mg PO DAILY [facility] Last Admin: 09/26/17 09:19 Dose: 80 mg Gabapentin (Neurontin -) 100 mg PO BID [facility] Last Admin: 09/26/17 09:20 Dose: 100 mg Heparin Sodium (Porcine) (Heparin -) 5,000 unit SQ BID [facility] Last Admin: 09/26/17 09:22 Dose: 5,000 unit Sodium Chloride (Normal Saline -) 250 mls @ 3,000 mls/hr IV PRN PRN PRN Reason: Hypotension during Dialysis Stop: 09/26/17 12:59 Vancomycin HCl 1,000 mg/ (Dextrose) 250 mls @ 166.667 mls/hr IVPB ONCE ONE; Protocol Stop: 09/26/17 07:29 Insulin Aspart (Novolog Vial Sliding Scale -) 1 vial SQ ACHS [facility]; Protocol Last Admin: 09/26/17 06:08 Dose: Not Given Insulin Detemir (Levemir Vial) 10 units SQ BID@1000,1700 [facility] Last Admin: 05/31/18 10:06 Dose: 10 unit Metoprolol Tartrate (Lopressor -) 50 mg PO BID [facility] Last Admin: 09/26/17 10:07 Dose: 50 mg Oxycodone HCl (Roxicodone -) 5 mg PO Q6H PRN PRN Reason: PAIN LEVEL 7 - 10 Last Admin: 09/25/17 23:32 Dose: 5 mg Sevelamer Carbonate (Renvela -) 1,600 mg PO TIDCM [facility] Last Admin: 09/26/17 09:00 Dose: 1,600 mg Sodium Bicarbonate (Sodium Bicarbonate -) 325 mg PO BID [facility] Last Admin: 09/26/17 09:21 Dose: 325 mg Trazodone HCl (Desyrel -) 300 mg PO HS [facility] Last Admin: 09/25/17 23:20 Dose: 300 mg Constitutional: Yes: No Distress Neck: Yes: Supple Respiratory: Yes: diminished at the bases Gastrointestinal: Yes: Normal Bowel Sounds, Soft Cardiovascular: Yes: Regular Rate and Rhythm JVD: No Carotid Bruit: No Heart Sounds: Yes: S1, S2 Edema: No Laboratory Results - last 24 hr 09/25/17 09/25/17 09/25/17 06:30 06:30 11:40 WBC RBC Hgb Hct MCV MCH MCHC RDW Plt Count MPV Total Counted Neutrophils % Neutrophils % (Manual) Band Neutrophils % Lymphocytes % Lymphocytes % (Manual) Monocytes % Monocytes % (Manual) Eosinophils % Eosinophils % (Manual) Basophils % Basophils % (Manual) Myelocytes % (Man) Promyelocytes % (Man) Blast Cells % (Manual) Nucleated RBC % Metamyelocytes Hypochromia Platelet Estimate Sodium Potassium Chloride Carbon Dioxide Anion Gap BUN Creatinine Creat Clearance w eGFR POC Glucometer 218 Random Glucose Hemoglobin A1c % 11.6 H D Calcium Total Bilirubin AST ALT Alkaline Phosphatase Total Protein Albumin Triglycerides Cholesterol Total LDL Cholesterol HDL Cholesterol Random Vancomycin Acetone, Qual Trace 09/25/17 09/25/17 09/26/17 16:05 23:19 05:39 WBC RBC Hgb Hct MCV MCH MCHC RDW Plt Count MPV Total Counted Neutrophils % Neutrophils % (Manual) Band Neutrophils % Lymphocytes % Lymphocytes % (Manual) Monocytes % Monocytes % (Manual) Eosinophils % Eosinophils % (Manual) Basophils % Basophils % (Manual) Myelocytes % (Man) Promyelocytes % (Man) Blast Cells % (Manual) Nucleated RBC % Metamyelocytes Hypochromia Platelet Estimate Sodium Potassium Chloride Carbon Dioxide Anion Gap BUN Creatinine Creat Clearance w eGFR POC Glucometer 189 212 82 Random Glucose Hemoglobin A1c % Calcium Total Bilirubin AST ALT Alkaline Phosphatase Total Protein Albumin Triglycerides Cholesterol Total LDL Cholesterol HDL Cholesterol Random Vancomycin Acetone, Qual 09/26/17 09/26/17 09/26/17 07:07 07:07 07:07 WBC 12.3 H RBC 3.44 L Hgb 10.0 L Hct 30.4 L MCV 88.4 MCH 29.1 MCHC 33.0 RDW 16.4 H Plt Count 327 MPV 9.0 Total Counted 100 Neutrophils % 78.1 Neutrophils % (Manual) 83.0 H Band Neutrophils % 2.0 Lymphocytes % 6.3 L Lymphocytes % (Manual) 2.0 L D Monocytes % 14.5 H Monocytes % (Manual) 10 Eosinophils % 0.8 Eosinophils % (Manual) 0.0 D Basophils % 0.3 Basophils % (Manual) 0.0 Myelocytes % (Man) 0 D Promyelocytes % (Man) 0 Blast Cells % (Manual) 0 Nucleated RBC % 0 Metamyelocytes 0 D Hypochromia 1+ Platelet Estimate Normal Sodium 131 L Potassium 4.6 Chloride 94 L Carbon Dioxide 21 Anion Gap 16 BUN 115 H* Creatinine 11.9 H* Creat Clearance w eGFR 4.35 POC Glucometer Random Glucose 86 D Hemoglobin A1c % Calcium 8.2 L Total Bilirubin 0.6 D AST 19 D ALT 12 Alkaline Phosphatase 90 D Total Protein 5.9 L Albumin 2.2 L Triglycerides 158 Cholesterol 92 Total LDL Cholesterol 51 HDL Cholesterol 28 L Random Vancomycin 27.975 Acetone, Qual Problem List - Problems (1) Sepsis Code(s): A41.9 - SEPSIS, UNSPECIFIED ORGANISM (2) ESRD (end stage renal disease) Code(s): N18.6 - END STAGE RENAL DISEASE (3) Diabetes mellitus, insulin dependent (IDDM), controlled Code(s): E11.9 - TYPE 2 DIABETES MELLITUS WITHOUT COMPLICATIONS; Z79.4 - MCC (CURRENT) USE OF INSULIN (4) Amputation, below knee, unilateral, traumatic Code(s): S88.119A - COMPLETE TRAUM AMP AT LEV BETW KN & ANKL, UNSP LOW LEG, INIT (5) Bacteremia due to Gram-positive bacteria Code(s): R78.81 - BACTEREMIA (6) Dyspnea Code(s): R06.00 - DYSPNEA, UNSPECIFIED (7) Acute dyspnea Code(s): R06.00 - DYSPNEA, UNSPECIFIED (8) Chest congestion Code(s): R09.89 - OTH SYMPTOMS AND SIGNS INVOLVING THE CIRC AND RESP SYSTEMS (9) Peripheral vascular disease due to secondary diabetes Code(s): E13.51 - OTH DIABETES W DIABETIC PERIPHERAL ANGIOPATHY W/O GANGRENE (10) HTN (hypertension) Code(s): I10 - ESSENTIAL (PRIMARY) HYPERTENSION Qualifiers: Hypertension type: essential hypertension Qualified Code(s): I10 - Essential (primary) hypertension IMP GRAM+ BACTEREMIA/SEPSIS DYSPNEA LOW SUSPICION OF PNA / BASILAR ATELECTASIS ON CXR ESRD ON HD PVD S/P LEFT BKA IDDM HTN PLAN IV ABX PER ID O2 INHALED BRONCHODILATORS HD PER RENAL VTE PROPHYLAXIS BD TX DR CARROLL
--- NOTE | 2017-09-26 14:48 | PN ---
Progress Note (short form) - Note Progress Note: Renal Follow up for ESRD on HD Pt seen and examined at the bedside awake and alert feels fatigued had fever this am no sob, chest pain, abd pain neck still has discomfort Vital Signs Temperature 98.9 F 09/26/17 14:30 Pulse Rate 85 09/26/17 14:30 Respiratory Rate 18 09/26/17 14:30 Blood Pressure 87/51 09/26/17 14:30 O2 Sat by Pulse Oximetry (%) 92 L 09/26/17 09:00 Intake & Output 09/23/17 09/24/17 09/25/17 09/26/17 23:59 23:59 23:59 23:59 Intake Total 150 880 440 Output Total 100 100 Balance 150 780 340 Weight 80 kg 80.739 kg NAD awake and alert RRR CTA soft NT/ND no LE edema CBC, BMP 09/26/17 07:07 09/26/17 07:07 Current Medications Acetaminophen (Tylenol -) 650 mg PO Q6H PRN PRN Reason: PAIN LEVEL 7 - 10 Last Admin: 09/26/17 01:00 Dose: 650 mg Albuterol/Ipratropium (Duoneb -) 1 amp NEB RQID [facility] Last Admin: 09/26/17 11:29 Dose: 1 amp Amlodipine Besylate (Norvasc -) 10 mg PO DAILY [facility] Last Admin: 09/26/17 10:08 Dose: 10 mg Doxazosin Mesylate (Cardura -) 4 mg PO DAILY [facility] Last Admin: 09/26/17 10:07 Dose: 4 mg Furosemide (Lasix -) 80 mg PO DAILY [facility] Last Admin: 09/26/17 09:19 Dose: 80 mg Gabapentin (Neurontin -) 100 mg PO BID [facility] Last Admin: 09/26/17 09:20 Dose: 100 mg Heparin Sodium (Porcine) (Heparin -) 5,000 unit SQ BID [facility] Last Admin: 09/26/17 09:22 Dose: 5,000 unit Sodium Chloride (Normal Saline -) 250 mls @ 3,000 mls/hr IV PRN PRN PRN Reason: Hypotension during Dialysis Stop: 09/26/17 12:59 Vancomycin HCl 1,000 mg/ (Dextrose) 250 mls @ 166.667 mls/hr IVPB ONCE ONE; Protocol Stop: 09/26/17 07:29 Insulin Aspart (Novolog Vial Sliding Scale -) 1 vial SQ [facility]; Protocol Last Admin: 09/26/17 13:50 Dose: Not Given Insulin Detemir (Levemir Vial) 10 units SQ BID@1000,1700 [facility] Last Admin: 09/26/17 10:06 Dose: 10 unit Metoprolol Tartrate (Lopressor -) 50 mg PO BID [facility] Last Admin: 09/26/17 10:07 Dose: 50 mg Oxycodone HCl (Roxicodone -) 5 mg PO Q6H PRN PRN Reason: PAIN LEVEL 7 - 10 Last Admin: 09/25/17 23:32 Dose: 5 mg Sevelamer Carbonate (Renvela -) 1,600 mg PO TIDCM [facility] Last Admin: 09/26/17 12:30 Dose: Not Given Sodium Bicarbonate (Sodium Bicarbonate -) 325 mg PO BID [facility] Last Admin: 09/26/17 09:21 Dose: 325 mg Trazodone HCl (Desyrel -) 300 mg PO HS [facility] Last Admin: 09/25/17 23:20 Dose: 300 mg 62 year old AA gentleman with PMhx of ESRD on HD (TTS) secondary to suspected diabetic nephropathy, DM, Hypertension, PVD who presented outpatient blood cultures that were positive for gram positive Cocci. #ESRD on HD #Hyperkalemia #Hyponatremia #Gram + bacteremia in setting fo indwelling dialysis catheter #Anemia #Pericardial effusion for dialysis today via temporary dialysis catheter will plan for HD tomorrow as well repeat blood cutlures to be drawn today with dialysis Vanco level is 27 this AM, will hold dose today and recheck level in AM trend CBC, will give ADRIAN with HD Renal diet and 1.2L fluid restriction Miguel Jansen DO
[2017-09-26] MEDS ORDERED: SODIUM CHLORIDE 250 ML IV PRN ×2 (14:51→14:52)
[2017-09-26] MEDS: oxyCODONE HCL 5 MG TABLET PO PRN (16:22)
--- NOTE | 2017-09-26 16:45 | PN ---
Progress Note, Physician History of Present Illness: still spikes fever new cx noted patient slightly better - Current Medication List Current Medications: Active Medications Acetaminophen (Tylenol -) 650 mg PO Q6H PRN PRN Reason: PAIN LEVEL 7 - 10 Last Admin: 09/26/17 01:00 Dose: 650 mg Albuterol/Ipratropium (Duoneb -) [address] [facility] Last Admin: 09/26/17 11:29 Dose: 1 amp Amlodipine Besylate (Norvasc -) [address] [facility] Last Admin: 09/26/17 10:08 Dose: 10 mg Doxazosin Mesylate (Cardura -) [address] [facility] Last Admin: 09/26/17 10:07 Dose: 4 mg Epoetin Joe (Epogen -) 10,000 unit IVPUSH ONCE ONE Stop: 09/27/17 06:01 Furosemide (Lasix -) [address] [facility] Last Admin: 09/26/17 09:19 Dose: 80 mg Gabapentin (Neurontin -) [address] [facility] Last Admin: 09/26/17 09:20 Dose: 100 mg Heparin Sodium (Porcine) (Heparin -) 5,[address] [facility] Last Admin: 09/26/17 09:22 Dose: 5,000 unit Vancomycin HCl 1,000 mg/ (Dextrose) 250 mls @ 166.667 mls/hr IVPB ONCE ONE; Protocol Stop: 09/26/17 07:29 Insulin Aspart (Novolog Vial Sliding Scale -) [address] [facility]; Protocol Last Admin: 09/26/17 13:50 Dose: Not Given Insulin Detemir (Levemir Vial) 10 units SQ BID@1000,1700 [facility] Last Admin: 09/26/17 10:06 Dose: 10 unit Metoprolol Tartrate (Lopressor -) [address] [facility] Last Admin: 09/26/17 10:07 Dose: 50 mg Oxycodone HCl (Roxicodone -) 5 mg PO Q6H PRN PRN Reason: PAIN LEVEL 7 - 10 Last Admin: 09/26/17 16:22 Dose: 5 mg Sevelamer Carbonate (Renvela -) 1,[address] [facility] Last Admin: 09/26/17 12:30 Dose: Not Given Sodium Bicarbonate (Sodium Bicarbonate -) [address] [facility] Last Admin: 09/26/17 09:21 Dose: 325 mg Trazodone HCl (Desyrel -) 300 mg PO HS [facility] Last Admin: 09/25/17 23:20 Dose: 300 mg - Objective Vital Signs: Vital Signs Temperature 98.9 F 09/26/17 14:30 Pulse Rate 85 09/26/17 14:30 Respiratory Rate 18 09/26/17 14:30 Blood Pressure 87/51 09/26/17 14:30 O2 Sat by Pulse Oximetry (%) 92 L 09/26/17 09:00 Constitutional: Yes: No Distress, Calm Cardiovascular: Yes: Regular Rate and Rhythm Respiratory: Yes: Regular, CTA Bilaterally Gastrointestinal: Yes: Normal Bowel Sounds, Soft Musculoskeletal: Yes: WNL Extremities: Yes: WNL Neurological: Yes: Alert, Oriented Psychiatric: Yes: Alert, Oriented Labs: CBC, BMP 09/26/17 07:07 09/26/17 07:07 INR, PTT INR 1.14 (0.82-1.09) 09/25/17 10:38 Assessment/Plan patients urine now positive gm positive bacteremia esrd fever hyperkalemia hyponatremia plan will check vanco level also daniels tart patient on zosyn reepat blood cx ordered for tomorrow rest continue current mgmt wound cx result noted
[2017-09-26] MEDS ORDERED: PIPERACILLIN/TAZOBACTAM 2.25 GM VIAL IVPB ONE (17:33)
[2017-09-26] MEDS ORDERED: DEXTROSE 5%-WATER - 50 ML IVPB ONE (17:33)
[2017-09-26] MEDS: PIPERACILLIN/TAZOB 2.25 GM 2.25 GM in DEXTROSE 5%-WATER - 50 ML IVPB SCH (17:44)
--- NOTE | 2017-09-26 20:30 | PN ---
Progress Note (short form) - Note Progress Note: [facility] Shiley cath placed left femoral vein Guide wire removed. All ports flushed. Can use for HD Al Daly DO
[2017-09-27] MEDS ORDERED: DEXTROSE 5%-WATER - 50 ML IVPB ONE ×3 (01:25→21:00)
[2017-09-27] MEDS ORDERED: PIPERACILLIN/TAZOBACTAM 2.25 GM VIAL IVPB ONE ×3 (01:25→20:59)
[2017-09-27] MEDS: INSULIN SLIDING SCALE (NOVOLOG) 1 VIAL SQ SCH ×5 (01:33→22:14)
[2017-09-27] MEDS ORDERED: traZODone HCL 50 MG TABLET (FP) ONE ×2 (02:18→20:59)
[2017-09-27] MEDS: oxyCODONE HCL 5 MG TABLET PO PRN (02:23)
[2017-09-27] MEDS: METOPROLOL TARTRATE 50 MG TABLET (FP) PO SCH ×3 (02:24→21:27)
[2017-09-27] MEDS: ACETAMINOPHEN 325 MG TABLET (FP) PO PRN ×3 (02:24→23:03)
[2017-09-27] MEDS: HEPARIN NA (PORCINE) 5,000 UNITS/ML 1ML VIAL SQ SCH ×3 (02:25→21:27)
[2017-09-27] MEDS: GABAPENTIN 100 MG CAPSULE (FP) PO SCH ×3 (02:25→21:27)
[2017-09-27] MEDS: traZODone HCL 100 MG TABLET (FP) PO SCH ×2 (02:25→21:27)
[2017-09-27] MEDS: PIPERACILLIN/TAZOB 2.25 GM 2.25 GM in DEXTROSE 5%-WATER - 50 ML IVPB SCH ×4 (02:26→21:08)
[2017-09-27] MEDS: SODIUM BICARBONATE 325 MG TABLET PO SCH ×2 (02:26→09:17)
[2017-09-27] MEDS ORDERED: ACETAMINOPHEN 325 MG TABLET (FP) PO ONE (05:47)
[2017-09-27] MEDS: ALBUTEROL SO4 2.5/IPRATROPIUM 0.5 INH SOL 3 ML VIAL.NEB. NEB SCH ×4 (08:30→20:57)
[2017-09-27 08:36] LABS: BASO % 0.7 % (0-2.0); HEMATOCRIT 26.9 % (35.4-49); HEMOGLOBIN 8.6 GM/dL (11.7-16.9); LYMPH % 7.1 % (8-40); MCH 28.4 pg (25.7-33.7); MCHC 32.1 g/dl (32.0-35.9); MEAN CELL VOLUME 88.6 fl (80-96); MONO % 13.4 % (3.8-10.2); NEUT % 77.8 % (42.8-82.8); PLATELET COUNT 314 K/MM3 (134-434); RBC 3.04 M/mm3 (4.00-5.60); RDW 16.4 % (11.9-15.9); WHITE BLOOD COUNT 11.4 K/mm3 (4.0-10.0)
[2017-09-27] MEDS ORDERED: PT OWN MED DRAWER 7, Y5N ONE (08:56)
[2017-09-27] MEDS: FUROSEMIDE 40 MG TABLET (FP) PO SCH (09:16)
[2017-09-27] MEDS: SEVELAMER CARBONATE 800 MG TAB (FP) PO SCH ×3 (09:16→17:32)
[2017-09-27] MEDS: amLODIPine BESYLATE 10 MG TABLET (FP) PO SCH (09:16)
[2017-09-27] MEDS: DOXAZOSIN MESYLATE 4 MG TABLET PO SCH (09:16)
[2017-09-27] MEDS: INSULIN (LEVEMIR) 100 UNITS/ML UNITS SQ SCH ×2 (09:18→16:47)
[2017-09-27 09:22] LABS: ALBUMIN 2.1 g/dl (3.4-5.0); ANION GAP 11 (8-16); BLOOD UREA NITROGEN 52 mg/dL (7-18); CALCIUM 7.9 mg/dL (8.5-10.1); CHLORIDE 97 mmol/L (98-107); CO2 28 mmol/L (21-32); GLUCOSE,RANDOM 129 mg/dL (74-106); MAGNESIUM 2.1 mg/dL (1.8-2.4); POTASSIUM 3.9 mmol/L (3.5-5.1); SODIUM 136 mmol/L (136-145)
[2017-09-27 09:25] LABS: ALK PHOS 87 U/L (45-117); BILIRUBIN,TOTAL 0.4 mg/dL (0.2-1.0); CREATININE 7.2 mg/dL (0.7-1.3); SGOT/AST 34 U/L (15-37); SGPT/ALT 15 U/L (12-78); TOT PROT 5.7 g/dl (6.4-8.2)
[2017-09-27] MEDS ORDERED: INSULIN (NOVOLOG) ASPART 100 UNITS/ML 10ML VIAL ONE (11:46)
--- NOTE | 2017-09-27 12:26 | PN ---
Progress Note, Physician History of Present Illness: pulmonary alert,less congested,c/o neck pain - Current Medication List Current Medications: Active Medications Acetaminophen (Tylenol -) 650 mg PO Q6H PRN PRN Reason: PAIN LEVEL 7 - 10 Last Admin: 09/27/17 02:24 Dose: 650 mg Albuterol/Ipratropium (Duoneb -) 1 amp NEB RQID [facility] Last Admin: 09/27/17 08:30 Dose: Not Given Amlodipine Besylate (Norvasc -) 10 mg PO DAILY [facility] Last Admin: 09/27/17 09:16 Dose: Not Given Doxazosin Mesylate (Cardura -) 4 mg PO DAILY [facility] Last Admin: 09/27/17 09:16 Dose: 4 mg Epoetin Joe (Epogen -) 10,000 unit IVPUSH ONCE ONE Stop: 09/27/17 06:01 Furosemide (Lasix -) 80 mg PO DAILY [facility] Last Admin: 09/27/17 09:16 Dose: 80 mg Gabapentin (Neurontin -) 100 mg PO BID [facility] Last Admin: 09/27/17 09:16 Dose: 100 mg Heparin Sodium (Porcine) (Heparin -) 5,000 unit SQ BID [facility] Last Admin: 09/27/17 09:18 Dose: 5,000 unit Vancomycin HCl 1,000 mg/ (Dextrose) 250 mls @ 166.667 mls/hr IVPB ONCE ONE; Protocol Stop: 09/26/17 07:29 Piperacillin Sod/Tazobactam (Sod 2.25 gm/ Dextrose) 50 mls @ 100 mls/hr IVPB Q8H-IV [facility]; Protocol Last Admin: 09/27/17 09:16 Dose: 100 mls/hr Insulin Aspart (Novolog Vial Sliding Scale -) 1 vial SQ ACHS [facility]; Protocol Last Admin: 09/27/17 06:11 Dose: 6 units Insulin Detemir (Levemir Vial) 10 units SQ BID@1000,1700 [facility] Last Admin: 09/27/17 09:18 Dose: 10 unit Metoprolol Tartrate (Lopressor -) 50 mg PO BID [facility] Last Admin: 09/27/17 09:17 Dose: Not Given Oxycodone HCl (Roxicodone -) 5 mg PO Q6H PRN PRN Reason: PAIN LEVEL 7 - 10 Last Admin: 09/27/17 02:23 Dose: 5 mg Sevelamer Carbonate (Renvela -) 1,600 mg PO TIDCM [facility] Last Admin: 09/27/17 09:16 Dose: 1,600 mg Sodium Bicarbonate (Sodium Bicarbonate -) 325 mg PO BID [facility] Last Admin: 09/27/17 09:17 Dose: 325 mg Trazodone HCl (Desyrel -) 300 mg PO HS [facility] Last Admin: 09/27/17 02:25 Dose: 300 mg - Objective Vital Signs: Vital Signs Temperature 99.4 F 09/27/17 08:00 Pulse Rate 88 09/27/17 08:00 Respiratory Rate 20 09/27/17 08:00 Blood Pressure 99/48 09/27/17 08:00 O2 Sat by Pulse Oximetry (%) 94 L 09/27/17 09:00 Constitutional: Yes: Well Nourished, Calm Eyes: Yes: WNL HENT: Yes: WNL Neck: Yes: WNL Cardiovascular: Yes: Regular Rate and Rhythm, S1, S2 Respiratory: Yes: Diminished Gastrointestinal: Yes: Normal Bowel Sounds, Soft Extremities: Yes: WNL Edema: No Labs: CBC, BMP 09/27/17 08:12 09/27/17 08:16 INR, PTT INR 1.14 (0.82-1.09) 09/25/17 10:38 Problem List - Problems (1) Sepsis Code(s): A41.9 - SEPSIS, UNSPECIFIED ORGANISM (2) ESRD (end stage renal disease) Code(s): N18.6 - END STAGE RENAL DISEASE (3) Diabetes mellitus, insulin dependent (IDDM), controlled Code(s): E11.9 - TYPE 2 DIABETES MELLITUS WITHOUT COMPLICATIONS; Z79.4 - CERTIFIED SURGICAL TECHNOLOGIST (CURRENT) USE OF INSULIN (4) Amputation, below knee, unilateral, traumatic Code(s): S88.119A - COMPLETE TRAUM AMP AT LEV BETW KN & ANKL, UNSP LOW LEG, INIT (5) Bacteremia due to Gram-positive bacteria Code(s): R78.81 - BACTEREMIA (6) Dyspnea Code(s): R06.00 - DYSPNEA, UNSPECIFIED (7) Acute dyspnea Code(s): R06.00 - DYSPNEA, UNSPECIFIED (8) Chest congestion Code(s): R09.89 - OTH SYMPTOMS AND SIGNS INVOLVING THE CIRC AND RESP SYSTEMS (9) Peripheral vascular disease due to secondary diabetes Code(s): E13.51 - OTH DIABETES W DIABETIC PERIPHERAL ANGIOPATHY W/O GANGRENE (10) HTN (hypertension) Code(s): I10 - ESSENTIAL (PRIMARY) HYPERTENSION Qualifiers: Hypertension type: essential hypertension Qualified Code(s): I10 - Essential (primary) hypertension Assessment/Plan IMP GRAM+ BACTEREMIA/SEPSIS DYSPNEA IMPROVING R/O PNEUMONIA ESRD ON HD PVD S/P LEFT BKA IDDM HTN PLAN IV ABX PER ID O2 INHALED BRONCHODILATORS F/U CHEST X-RAYS HD PER RENAL DR BAUM Problem List - Problems (1) Sepsis Code(s): A41.9 - SEPSIS, UNSPECIFIED ORGANISM (2) ESRD (end stage renal disease) Code(s): N18.6 - END STAGE RENAL DISEASE (3) Diabetes mellitus, insulin dependent (IDDM), controlled Code(s): E11.9 - TYPE 2 DIABETES MELLITUS WITHOUT COMPLICATIONS; Z79.4 - PRISON (CURRENT) USE OF INSULIN (4) Amputation, below knee, unilateral, traumatic Code(s): S88.119A - COMPLETE TRAUM AMP AT LEV BETW KN & ANKL, UNSP LOW LEG, INIT (5) Bacteremia due to Gram-positive bacteria Code(s): R78.81 - BACTEREMIA (6) Dyspnea Code(s): R06.00 - DYSPNEA, UNSPECIFIED (7) Acute dyspnea Code(s): R06.00 - DYSPNEA, UNSPECIFIED (8) Chest congestion Code(s): R09.89 - OTH SYMPTOMS AND SIGNS INVOLVING THE CIRC AND RESP SYSTEMS (9) Peripheral vascular disease due to secondary diabetes Code(s): E13.51 - OTH DIABETES W DIABETIC PERIPHERAL ANGIOPATHY W/O GANGRENE (10) HTN (hypertension) Code(s): I10 - ESSENTIAL (PRIMARY) HYPERTENSION Qualifiers: Hypertension type: essential hypertension Qualified Code(s): I10 - Essential (primary) hypertension
--- NOTE | 2017-09-27 12:56 | PN ---
Physical Exam: SUBJECTIVE: Patient seen and examined at the bedside. Still having neck pain. Fevers persist. OBJECTIVE: Soft tissue CT with possible septic vs aseptic thrombosis of right internal juguar vein to the right sigmoid sinus Findings discussed with vascular Vital Signs Period Temp Pulse Resp BP Sys/Gutierrez Pulse Ox Last 24 Hr 97.7 F-102.7 F 59-126 18-20 87-135/47-77 93-94 GENERAL: The patient is awake, alert, and fully oriented, in no acute distress. HEAD: Normal with no signs of trauma. EYES: PERRL, extraocular movements intact, sclera anicteric, conjunctiva clear. No ptosis. ENT: Ears normal, nares patent, oropharynx clear without exudates, moist mucous membranes. NECK: Trachea midline, full range of motion, supple. LUNGS: scattered rhonchi bilaterally HEART: Regular rate and rhythm, S1, S2 without murmur, rub or gallop. ABDOMEN: Soft, nontender, nondistended, normoactive bowel sounds, no guarding, no rebound, no hepatosplenomegaly, no masses. EXTREMITIES: Left BKA, skin intact, NEUROLOGICAL: Normal speech, gait not observed. PSYCH: Normal mood, normal affect. SKIN: Warm, dry, normal turgor, no rashes or lesions noted Laboratory Results - last 24 hr 09/26/17 09/26/17 09/27/17 16:53 23:09 06:09 WBC RBC Hgb Hct MCV MCH MCHC RDW Plt Count MPV Neutrophils % Lymphocytes % Monocytes % Eosinophils % Basophils % Nucleated RBC % Sodium Potassium Chloride Carbon Dioxide Anion Gap BUN Creatinine Creat Clearance w eGFR POC Glucometer 265 181 212 Random Glucose Calcium Magnesium Total Bilirubin AST ALT Alkaline Phosphatase Total Protein Albumin Vancomycin Pre-Dose 09/27/17 09/27/17 09/27/17 07:38 08:12 08:16 WBC 11.4 H RBC 3.04 L Hgb 8.6 L D Hct 26.9 L MCV 88.6 MCH 28.4 MCHC 32.1 RDW 16.4 H Plt Count 314 MPV 9.0 Neutrophils % 77.8 Lymphocytes % 7.1 L Monocytes % 13.4 H Eosinophils % 1.0 Basophils % 0.7 Nucleated RBC % 0 Sodium 136 Potassium 3.9 Chloride 97 L Carbon Dioxide 28 D Anion Gap 11 BUN 52 H D Creatinine 7.2 H D Creat Clearance w eGFR 7.76 POC Glucometer Random Glucose 129 H D Calcium 7.9 L Magnesium 2.1 Total Bilirubin 0.4 D AST 34 D ALT 15 D Alkaline Phosphatase 87 Total Protein 5.7 L Albumin 2.1 L Vancomycin Pre-Dose 20.127 H* 09/27/17 11:06 WBC RBC Hgb Hct MCV MCH MCHC RDW Plt Count MPV Neutrophils % Lymphocytes % Monocytes % Eosinophils % Basophils % Nucleated RBC % Sodium Potassium Chloride Carbon Dioxide Anion Gap BUN Creatinine Creat Clearance w eGFR POC Glucometer 156 Random Glucose Calcium Magnesium Total Bilirubin AST ALT Alkaline Phosphatase Total Protein Albumin Vancomycin Pre-Dose Active Medications Generic Name Dose Route Start Last Admin Trade Name Freq PRN Reason Stop Dose Admin Acetaminophen 650 mg 09/25/17 09:20 09/27/17 02:24 Tylenol - PO 650 mg Q6H PRN Administration PAIN LEVEL 7 - 10 Albuterol/Ipratropium 1 amp 09/25/17 16:00 09/27/17 08:30 Duoneb - NEB Not Given RQID [facility] Amlodipine Besylate 10 mg 09/25/17 10:00 09/27/17 09:16 Norvasc - PO Not Given DAILY [facility] Doxazosin Mesylate 4 mg 09/25/17 10:00 09/27/17 09:16 Cardura - PO 4 mg DAILY [facility] Administration Epoetin Joe 10,000 unit 09/27/17 06:00 Epogen - IVPUSH 09/27/17 06:01 ONCE ONE Furosemide 80 mg 09/25/17 10:00 09/27/17 09:16 Lasix - PO 80 mg DAILY [facility] Administration Gabapentin 100 mg 09/24/17 22:00 09/27/17 09:16 Neurontin - PO 100 mg BID [facility] Administration Heparin Sodium (Porcine) 5,000 unit 09/24/17 22:00 09/27/17 09:18 Heparin - SQ 5,000 unit BID [facility] Administration Vancomycin HCl 1,000 mg/ 250 mls @ 166.667 mls/hr 09/26/17 06:00 Dextrose IVPB 09/26/17 07:29 ONCE ONE Protocol Piperacillin Sod/Tazobactam 50 mls @ 100 mls/hr 09/26/17 18:00 09/27/17 09:16 Sod 2.25 gm/ Dextrose IVPB 100 mls/hr Q8H-IV [facility] Administration Protocol Insulin Aspart 1 vial 09/25/17 09:16 09/27/17 06:11 Novolog Vial Sliding Scale - SQ 6 units ACHS [facility] Administration Protocol Insulin Detemir 10 units 09/25/17 10:00 09/27/17 09:18 Levemir Vial SQ 10 unit BID@1000,1700 [facility] Administration Metoprolol Tartrate 50 mg 09/24/17 22:00 09/27/17 09:17 Lopressor - PO Not Given BID [facility] Oxycodone HCl 5 mg 09/25/17 10:01 09/27/17 02:23 Roxicodone - PO 5 mg Q6H PRN Administration PAIN LEVEL 7 - 10 Sevelamer Carbonate 1,600 mg 09/24/17 19:45 09/27/17 09:16 Renvela - PO 1,600 mg TIDCM [facility] Administration Sodium Bicarbonate 325 mg 09/24/17 22:00 09/27/17 09:17 Sodium Bicarbonate - PO 325 mg BID [facility] Administration Trazodone HCl 300 mg 09/24/17 22:00 09/27/17 02:25 Desyrel - PO 300 mg HS [facility] Administration ASSESSMENT/PLAN: Patient is a 61 year old male with a significant past medical history of diabetes mellitus, hypertension, ESRD (Tues, Thurs, Sat), osteoarthritis and left below the knee amputation. He presents to the ER after being found to have + blood cultures from his last dialysis session 1 week ago from his right permacath site. Patient reports that for the last 10 days he felt generally weaker, but denies fevers, chills, nausea or vomiting. He reports pain on the right side of his head and neck. No visual defects, no vomiting or nausea. He denies any pain from his right permacath site nor surrounding tissue. Labs in the ER he was noted to have electrolyte imbalance which included hyperkalemia of 6.3 and was given insulin, d50 and calcium gluconate. Imaging: CT/Soft Tissue Neck CT with contrast 09/27/2017: 1. septic vs aseptic thrombus for right IJ to sigmoid sinus, no abscess in neck seen. Findings discussed via telephone with Dr. Saba, radiology ID: Sepsis Bacteremia Urosepsis + blood cultures from right permacath with presumptive MRSA UC also growing staph Still having fevers On Vanco renally dosed, started on Zosyn Repeat blood cultures pending organism Vascular Septic vs aseptic thrombus seen in right IJ discussed with vascular No abscess seen No anticoagulation per vascular Brain MRI and Neck MRA ordered Renal: ESRD dialysis per yesterday and today right permacath removed, new femoral shiley placed by vascular Endocrine Diabetes On SS and Levemir CV: Hypertension, controlled continue home medications Infected Permacath/generalized weakness Moderate pericardial effusion, bacteremia Possible CHAKA as per Cardio Echo reviewed F.E.N. Fluids: none needed Electrolyes: monitor Nutrition: renal diet Prophy: DVT: Heparin TID GI: deferred Visit type - Emergency Visit Emergency Visit: Yes ED Registration Date: 09/24/17 Care time: The patient presented to the Emergency Department on the above date and was hospitalized for further evaluation of their emergent condition. - New Patient This patient is new to me today: No - Critical Care Critical Care patient: No - Discharge Referral Referred to [facility] No
--- NOTE | 2017-09-27 13:02 | PN ---
Progress Note, Physician History of Present Illness: Fever spike earlier in AM, surveillance blood cultures sent and pending. - Current Medication List Current Medications: Active Medications Acetaminophen (Tylenol -) 650 mg PO Q6H PRN PRN Reason: PAIN LEVEL 7 - 10 Last Admin: 09/27/17 02:24 Dose: 650 mg Albuterol/Ipratropium (Duoneb -) 1 amp NEB RQID [facility] Last Admin: 09/27/17 08:30 Dose: Not Given Amlodipine Besylate (Norvasc -) 10 mg PO DAILY [facility] Last Admin: 09/27/17 09:16 Dose: Not Given Doxazosin Mesylate (Cardura -) 4 mg PO DAILY [facility] Last Admin: 09/27/17 09:16 Dose: 4 mg Epoetin Joe (Epogen -) 10,000 unit IVPUSH ONCE ONE Stop: 09/27/17 06:01 Furosemide (Lasix -) 80 mg PO DAILY [facility] Last Admin: 09/27/17 09:16 Dose: 80 mg Gabapentin (Neurontin -) 100 mg PO BID [facility] Last Admin: 09/27/17 09:16 Dose: 100 mg Heparin Sodium (Porcine) (Heparin -) 5,000 unit SQ BID [facility] Last Admin: 09/27/17 09:18 Dose: 5,000 unit Vancomycin HCl 1,000 mg/ (Dextrose) 250 mls @ 166.667 mls/hr IVPB ONCE ONE; Protocol Stop: 09/26/17 07:29 Piperacillin Sod/Tazobactam (Sod 2.25 gm/ Dextrose) 50 mls @ 100 mls/hr IVPB Q8H-IV [facility]; Protocol Last Admin: 09/27/17 09:16 Dose: 100 mls/hr Insulin Aspart (Novolog Vial Sliding Scale -) 1 vial SQ ACHS [facility]; Protocol Last Admin: 09/27/17 06:11 Dose: 6 units Insulin Detemir (Levemir Vial) 10 units SQ BID@1000,1700 [facility] Last Admin: 09/27/17 09:18 Dose: 10 unit Metoprolol Tartrate (Lopressor -) 50 mg PO BID [facility] Last Admin: 09/27/17 09:17 Dose: Not Given Oxycodone HCl (Roxicodone -) 5 mg PO Q6H PRN PRN Reason: PAIN LEVEL 7 - 10 Last Admin: 09/27/17 02:23 Dose: 5 mg Sevelamer Carbonate (Renvela -) 1,600 mg PO TIDCM [facility] Last Admin: 09/27/17 09:16 Dose: 1,600 mg Sodium Bicarbonate (Sodium Bicarbonate -) 325 mg PO BID [facility] Last Admin: 09/27/17 09:17 Dose: 325 mg Trazodone HCl (Desyrel -) 300 mg PO HS [facility] Last Admin: 09/27/17 02:25 Dose: 300 mg - Objective Vital Signs: Vital Signs Temperature 99.4 F 09/27/17 08:00 Pulse Rate 88 09/27/17 08:00 Respiratory Rate 20 09/27/17 08:00 Blood Pressure 99/48 09/27/17 08:00 O2 Sat by Pulse Oximetry (%) 94 L 09/27/17 09:00 Constitutional: Yes: No Distress, Calm Neck: Yes: Supple Cardiovascular: Yes: Regular Rate and Rhythm Respiratory: Yes: Regular, Diminished Gastrointestinal: Yes: Normal Bowel Sounds, Soft Edema: No Labs: CBC, BMP 09/27/17 08:12 09/27/17 08:16 INR, PTT INR 1.14 (0.82-1.09) 09/25/17 10:38 Assessment/Plan 09/25/2017 Echo: Normal LV size and fxn, mild aortic dilatation, moderate pericardial effusion, trace -mid MR 1. MSSA bacteremia suspect line sepsis from indwelling dialysis catheter since removed 2. ESRD on HD TTS referable to suspected diabetic nephropathy with hyperkalemia and hyponatremia 3. 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 Type 2 DM 5. HTN/HCVD 6. PAD 7. Anemia of chronic kidney disease 8. Bacteruria 9. PAD s/p left BKA P:1. Abx course per ID, observe for clearance post catheter removal. If bacteremia persists, will consider CHAKA to exclude endocarditis, f/u neck CT 2. HD via left femoral groin line to address pericardial effusion and uremic pericaditis, not in tamponade 3. Continue Norvasc 10 qd, Cardura 4 qd, Lasix 80 qd, Lopressor 50 bid
--- NOTE | 2017-09-27 14:59 | PN ---
Progress Note (short form) - Note Progress Note: [facility] CT report reviewed. Pt with right IJ thrombus. The thrombus is secondary to the permacath being in the vein. Probably been there for some time. Would not anticoagulate for IJ thrombus. We can do a US in one week to make sure there is no extension of the clot. Al vegas DO
--- NOTE | 2017-09-27 15:54 | PN ---
Progress Note, Physician History of Present Illness: still spiking fevers neck pain/tenderness rt side having chills - Current Medication List Current Medications: Active Medications Acetaminophen (Tylenol -) 650 mg PO Q6H PRN PRN Reason: PAIN LEVEL 7 - 10 Last Admin: 09/27/17 02:24 Dose: 650 mg Albuterol/Ipratropium (Duoneb -) 1 amp NEB RQID [facility] Last Admin: 09/27/17 11:15 Dose: 1 amp Amlodipine Besylate (Norvasc -) 10 mg PO DAILY [facility] Last Admin: 09/27/17 09:16 Dose: Not Given Doxazosin Mesylate (Cardura -) 4 mg PO DAILY [facility] Last Admin: 09/27/17 09:16 Dose: 4 mg Epoetin Joe (Epogen -) 10,000 unit IVPUSH ONCE ONE Stop: 09/27/17 06:01 Furosemide (Lasix -) 80 mg PO DAILY [facility] Last Admin: 09/27/17 09:16 Dose: 80 mg Gabapentin (Neurontin -) 100 mg PO BID [facility] Last Admin: 09/27/17 09:16 Dose: 100 mg Heparin Sodium (Porcine) (Heparin -) 5,000 unit SQ TID [facility] Vancomycin HCl 1,000 mg/ (Dextrose) 250 mls @ 166.667 mls/hr IVPB ONCE ONE; Protocol Stop: 09/26/17 07:29 Piperacillin Sod/Tazobactam (Sod 2.25 gm/ Dextrose) 50 mls @ 100 mls/hr IVPB Q8H-IV [facility]; Protocol Last Admin: 09/27/17 09:16 Dose: 100 mls/hr Insulin Aspart (Novolog Vial Sliding Scale -) 1 vial SQ ACHS [facility]; Protocol Last Admin: 09/27/17 13:00 Dose: Not Given Insulin Detemir (Levemir Vial) 10 units SQ BID@1000,1700 [facility] Last Admin: 09/27/17 09:18 Dose: 10 unit Metoprolol Tartrate (Lopressor -) 50 mg PO BID [facility] Last Admin: 09/27/17 09:17 Dose: Not Given Oxycodone HCl (Roxicodone -) 5 mg PO Q6H PRN PRN Reason: PAIN LEVEL 7 - 10 Last Admin: 09/27/17 02:23 Dose: 5 mg Sevelamer Carbonate (Renvela -) 1,600 mg PO TIDCM [facility] Last Admin: 09/27/17 13:00 Dose: Not Given Sodium Bicarbonate (Sodium Bicarbonate -) 325 mg PO BID [facility] Last Admin: 09/27/17 09:17 Dose: 325 mg Trazodone HCl (Desyrel -) 300 mg PO HS [facility] Last Admin: 09/27/17 02:25 Dose: 300 mg - Objective Vital Signs: Vital Signs Temperature 100.9 F H 09/27/17 14:20 Pulse Rate 102 H 09/27/17 14:20 Respiratory Rate 22 09/27/17 14:20 Blood Pressure 112/56 09/27/17 14:20 O2 Sat by Pulse Oximetry (%) 94 L 09/27/17 09:00 Constitutional: Yes: Calm, Mild Distress Neck: Yes: Tenderness (rt side), Other Cardiovascular: Yes: Regular Rate and Rhythm Respiratory: Yes: Regular, CTA Bilaterally Gastrointestinal: Yes: Normal Bowel Sounds, Soft Musculoskeletal: Yes: WNL Extremities: Yes: WNL, Other Neurological: Yes: Alert, Oriented Psychiatric: Yes: Alert, Oriented Labs: CBC, BMP 09/27/17 08:12 09/27/17 08:16 INR, PTT INR 1.14 (0.82-1.09) 09/25/17 10:38 Assessment/Plan multiple medical issues echo negative gm positive bacteremia esrd fever hyperkalemia hyponatremia pericardial effusion plan will check vanco level continue abx repeat cx noted stil positive no AC according to vascular await for brain imaging studies monitor fevers
--- NOTE | 2017-09-27 16:23 | PN ---
Progress Note (short form) - Note Progress Note: Renal Follow up for ESRD on HD Pt seen and examined at the bedside during dialysis having chills has tenderness on right neck no sob, chest pain BP stable, goal UF is 2L Vital Signs Temperature 100.9 F H 09/27/17 14:20 Pulse Rate 102 H 09/27/17 14:20 Respiratory Rate 22 09/27/17 14:20 Blood Pressure 112/56 09/27/17 14:20 O2 Sat by Pulse Oximetry (%) 94 L 09/27/17 09:00 NAD awake and alert RRR CTA soft NT/ND no LE edema CBC, BMP 09/27/17 08:12 09/27/17 08:16 Current Medications Acetaminophen (Tylenol -) 650 mg PO Q6H PRN PRN Reason: PAIN LEVEL 7 - 10 Last Admin: 09/27/17 16:15 Dose: 650 mg Albuterol/Ipratropium (Duoneb -) 1 amp NEB RQID [facility] Last Admin: 09/27/17 11:15 Dose: 1 amp Amlodipine Besylate (Norvasc -) 10 mg PO DAILY [facility] Last Admin: 09/27/17 09:16 Dose: Not Given Doxazosin Mesylate (Cardura -) 4 mg PO DAILY [facility] Last Admin: 09/27/17 09:16 Dose: 4 mg Epoetin Joe (Epogen -) 10,000 unit IVPUSH ONCE ONE Stop: 09/27/17 06:01 Furosemide (Lasix -) 80 mg PO DAILY [facility] Last Admin: 09/27/17 09:16 Dose: 80 mg Gabapentin (Neurontin -) 100 mg PO BID [facility] Last Admin: 09/27/17 09:16 Dose: 100 mg Heparin Sodium (Porcine) (Heparin -) 5,000 unit SQ TID [facility] Vancomycin HCl 1,000 mg/ (Dextrose) 250 mls @ 166.667 mls/hr IVPB ONCE ONE; Protocol Stop: 09/26/17 07:29 Piperacillin Sod/Tazobactam (Sod 2.25 gm/ Dextrose) 50 mls @ 100 mls/hr IVPB Q8H-IV [facility]; Protocol Last Admin: 09/27/17 09:16 Dose: 100 mls/hr Insulin Aspart (Novolog Vial Sliding Scale -) 1 vial SQ ACHS [facility]; Protocol Last Admin: 09/27/17 13:00 Dose: Not Given Insulin Detemir (Levemir Vial) 10 units SQ BID@1000,1700 [facility] Last Admin: 09/27/17 09:18 Dose: 10 unit Metoprolol Tartrate (Lopressor -) 50 mg PO BID [facility] Last Admin: 09/27/17 09:17 Dose: Not Given Oxycodone HCl (Roxicodone -) 5 mg PO Q6H PRN PRN Reason: PAIN LEVEL 7 - 10 Last Admin: 09/27/17 02:23 Dose: 5 mg Sevelamer Carbonate (Renvela -) 1,600 mg PO TIDCM [facility] Last Admin: 09/27/17 13:00 Dose: Not Given Sodium Bicarbonate (Sodium Bicarbonate -) 325 mg PO BID [facility] Last Admin: 09/27/17 09:17 Dose: 325 mg Trazodone HCl (Desyrel -) 300 mg PO HS [facility] Last Admin: 09/27/17 02:25 Dose: 300 mg 62 year old AA gentleman with PMhx of ESRD on HD (TTS) secondary to suspected diabetic nephropathy, DM, Hypertension, PVD who presented outpatient blood cultures that were positive for gram positive Cocci. #ESRD on HD #Hyperkalemia #Hyponatremia #Gram + bacteremia in setting fo indwelling dialysis catheter #Anemia #Pericardial effusion tolerating dialysis via femoral catheter today (also had dialysis yesterday) cultures from yesterday grew in 1/2 bottles Vanco level is [address] findings noted, seen by vascular no need for A/C at this time ECHO showed no vegetation Miguel Jansen DO
[2017-09-27] MEDS ORDERED: EPOETIN ALFA 10,000 UNIT/1 ML VIAL IVPUSH ONE (16:45)
[2017-09-27] MEDS ORDERED: IBUPROFEN 400 MG TABLET (FP) PO ONE (21:06)
[2017-09-27] MEDS ORDERED: VANCOMYCIN 500 MG in DEXTROSE 5%-WATER - 100 ML IVPB ONE (22:00)
[2017-09-28] MEDS ORDERED: DEXTROSE 5%-WATER - 50 ML IVPB ONE ×3 (01:26→17:36)
[2017-09-28] MEDS ORDERED: PIPERACILLIN/TAZOBACTAM 2.25 GM VIAL IVPB ONE ×4 (01:26→17:36)
[2017-09-28] MEDS: PIPERACILLIN/TAZOB 2.25 GM 2.25 GM in DEXTROSE 5%-WATER - 50 ML IVPB SCH ×3 (02:03→17:40)
[2017-09-28] MEDS: HEPARIN NA (PORCINE) 5,000 UNITS/ML 1ML VIAL SQ SCH ×3 (05:58→21:21)
[2017-09-28] MEDS ORDERED: DEXTROSE 50%-WATER 25 GM/50 ML DISP.SYRIN ONE (06:04)
[2017-09-28] MEDS ORDERED: DEXTROSE 50%-WATER - 25 GM/50 ML VIAL IVPUSH PRN ×2 (06:12→20:31)
[2017-09-28] MEDS ORDERED: DEXTROSE 50%-WATER 25 GM/50 ML DISP.SYRIN IVPUSH ONE (06:12)
[2017-09-28] MEDS: INSULIN SLIDING SCALE (NOVOLOG) 1 VIAL SQ SCH ×4 (06:32→21:47)
[2017-09-28] MEDS: ALBUTEROL SO4 2.5/IPRATROPIUM 0.5 INH SOL 3 ML VIAL.NEB. NEB SCH ×3 (07:42→21:00)
[2017-09-28 08:10] LABS: BASO % 0.3 % (0-2.0); EOS % 0.4 % (0-4.5); HEMATOCRIT 27.8 % (35.4-49); HEMOGLOBIN 8.9 GM/dL (11.7-16.9); LYMPH % 5.6 % (8-40); MCH 28.7 pg (25.7-33.7); MCHC 31.9 g/dl (32.0-35.9); MEAN PLT VOLUME 9.6 fl (7.5-11.1); MONO % 12.4 % (3.8-10.2); NEUT % 81.3 % (42.8-82.8); PLATELET COUNT 272 K/MM3 (134-434); RBC 3.09 M/mm3 (4.00-5.60); RDW 16.4 % (11.9-15.9); WHITE BLOOD COUNT 13.3 K/mm3 (4.0-10.0)
--- NOTE | 2017-09-28 08:43 | PN ---
Progress Note, Physician History of Present Illness: pulmonary alert,feeling better,-sob,-congestion,less neck pain. ct neck + septic vs aseptic thrombosis RIJ. tmax 103.5 - Current Medication List Current Medications: Active Medications Acetaminophen (Tylenol -) 650 mg PO Q6H PRN PRN Reason: PAIN LEVEL 7 - 10 Last Admin: 09/27/17 23:03 Dose: 650 mg Albuterol/Ipratropium (Duoneb -) 1 amp NEB RQID [facility] Last Admin: 09/27/17 20:57 Dose: 1 amp Amlodipine Besylate (Norvasc -) 10 mg PO DAILY [facility] Last Admin: 09/27/17 09:16 Dose: Not Given Dextrose (D50w (Vial) -) 25 gm IVPUSH PRN PRN PRN Reason: HYPOGLYCEMIA Doxazosin Mesylate (Cardura -) 4 mg PO DAILY [facility] Last Admin: 09/27/17 09:16 Dose: 4 mg Furosemide (Lasix -) 80 mg PO DAILY [facility] Last Admin: 09/27/17 09:16 Dose: 80 mg Gabapentin (Neurontin -) 100 mg PO BID [facility] Last Admin: 09/27/17 21:27 Dose: 100 mg Heparin Sodium (Porcine) (Heparin -) 5,000 unit SQ TID [facility] Last Admin: 09/28/17 05:58 Dose: 5,000 unit Vancomycin HCl 1,000 mg/ (Dextrose) 250 mls @ 166.667 mls/hr IVPB ONCE ONE; Protocol Stop: 09/26/17 07:29 Piperacillin Sod/Tazobactam (Sod 2.25 gm/ Dextrose) 50 mls @ 100 mls/hr IVPB Q8H-IV [facility]; Protocol Last Admin: 09/28/17 02:03 Dose: 100 mls/hr Insulin Aspart (Novolog Vial Sliding Scale -) 1 vial SQ ACHS [facility]; Protocol Last Admin: 09/28/17 06:32 Dose: Not Given Insulin Detemir (Levemir Vial) 10 units SQ BID@1000,1700 [facility] Last Admin: 09/27/17 16:47 Dose: 10 unit Metoprolol Tartrate (Lopressor -) 50 mg PO BID [facility] Last Admin: 09/27/17 21:27 Dose: 50 mg Oxycodone HCl (Roxicodone -) 5 mg PO Q6H PRN PRN Reason: PAIN LEVEL 7 - 10 Last Admin: 09/27/17 02:23 Dose: 5 mg Sevelamer Carbonate (Renvela -) 1,600 mg PO TIDCM [facility] Last Admin: 09/27/17 17:32 Dose: 1,600 mg Trazodone HCl (Desyrel -) 300 mg PO HS [facility] Last Admin: 09/27/17 21:27 Dose: 300 mg - Objective Vital Signs: Vital Signs Temperature 96.5 F L 09/28/17 06:33 Pulse Rate 88 09/28/17 06:33 Respiratory Rate 20 09/28/17 06:33 Blood Pressure 108/55 09/28/17 06:33 O2 Sat by Pulse Oximetry (%) 94 L 09/27/17 21:00 Constitutional: Yes: Well Nourished, Calm Eyes: Yes: WNL HENT: Yes: WNL Neck: Yes: WNL Cardiovascular: Yes: Regular Rate and Rhythm, S1, S2 Respiratory: Yes: Diminished Gastrointestinal: Yes: Normal Bowel Sounds, Soft Extremities: Yes: Amputation (left bka) Edema: No Labs: CBC, BMP 09/28/17 07:30 INR, PTT INR 1.14 (0.82-1.09) 09/25/17 10:38 Problem List - Problems (1) Sepsis Code(s): A41.9 - SEPSIS, UNSPECIFIED ORGANISM (2) ESRD (end stage renal disease) Code(s): N18.6 - END STAGE RENAL DISEASE (3) Diabetes mellitus, insulin dependent (IDDM), controlled Code(s): E11.9 - TYPE 2 DIABETES MELLITUS WITHOUT COMPLICATIONS; Z79.4 - PRISON (CURRENT) USE OF INSULIN (4) Amputation, below knee, unilateral, traumatic Code(s): S88.119A - COMPLETE TRAUM AMP AT LEV BETW KN & ANKL, UNSP LOW LEG, INIT (5) Bacteremia due to Gram-positive bacteria Code(s): R78.81 - BACTEREMIA (6) Dyspnea Code(s): R06.00 - DYSPNEA, UNSPECIFIED (7) Acute dyspnea Code(s): R06.00 - DYSPNEA, UNSPECIFIED (8) Chest congestion Code(s): R09.89 - OTH SYMPTOMS AND SIGNS INVOLVING THE CIRC AND RESP SYSTEMS (9) Peripheral vascular disease due to secondary diabetes Code(s): E13.51 - OTH DIABETES W DIABETIC PERIPHERAL ANGIOPATHY W/O GANGRENE (10) HTN (hypertension) Code(s): I10 - ESSENTIAL (PRIMARY) HYPERTENSION Qualifiers: Hypertension type: essential hypertension Qualified Code(s): I10 - Essential (primary) hypertension Assessment/Plan IMP GRAM+ BACTEREMIA/SEPSIS DYSPNEA IMPROVING R/O PNEUMONIA ESRD ON HD PVD S/P LEFT BKA IDDM HTN PLAN IV ABX PER ID RIJ THROMBOSIS O2 INHALED BRONCHODILATORS F/U CHEST X-RAYS HD PER RENAL DR BAUM Problem List - Problems (1) Sepsis Code(s): A41.9 - SEPSIS, UNSPECIFIED ORGANISM (2) ESRD (end stage renal disease) Code(s): N18.6 - END STAGE RENAL DISEASE (3) Diabetes mellitus, insulin dependent (IDDM), controlled Code(s): E11.9 - TYPE 2 DIABETES MELLITUS WITHOUT COMPLICATIONS; Z79.4 - PRISON (CURRENT) USE OF INSULIN (4) Amputation, below knee, unilateral, traumatic Code(s): S88.119A - [facility], UNSP LOW LEG, INIT (5) Bacteremia due to Gram-positive bacteria Code(s): R78.81 - BACTEREMIA (6) Dyspnea Code(s): R06.00 - DYSPNEA, UNSPECIFIED (7) Acute dyspnea Code(s): R06.00 - DYSPNEA, UNSPECIFIED (8) Chest congestion Code(s): R09.89 - OTH SYMPTOMS AND SIGNS INVOLVING THE CIRC AND RESP SYSTEMS (9) Peripheral vascular disease due to secondary diabetes Code(s): E13.51 - OTH DIABETES W DIABETIC PERIPHERAL ANGIOPATHY W/O GANGRENE (10) HTN (hypertension) Code(s): I10 - ESSENTIAL (PRIMARY) HYPERTENSION Qualifiers: Hypertension type: essential hypertension Qualified Code(s): I10 - Essential (primary) hypertension
[2017-09-28] MEDS: amLODIPine BESYLATE 10 MG TABLET (FP) PO SCH (09:15)
[2017-09-28] MEDS: DOXAZOSIN MESYLATE 4 MG TABLET PO SCH (09:15)
[2017-09-28] MEDS: GABAPENTIN 100 MG CAPSULE (FP) PO SCH ×2 (09:17→21:21)
[2017-09-28] MEDS: SEVELAMER CARBONATE 800 MG TAB (FP) PO SCH ×3 (09:17→17:39)
[2017-09-28] MEDS: FUROSEMIDE 40 MG TABLET (FP) PO SCH (09:17)
[2017-09-28] MEDS: METOPROLOL TARTRATE 50 MG TABLET (FP) PO SCH ×2 (09:17→21:17)
[2017-09-28] MEDS: INSULIN (LEVEMIR) 100 UNITS/ML UNITS SQ SCH ×2 (09:18→17:00)
--- NOTE | 2017-09-28 10:07 | HOSP ---
Subjective - Review of Symptoms Events since last encounter: called by RN as patient BP is low . on arrival , pt is awake, denies any SOB , light headedness, CP or cough. has no PEREZ , or blurry vision. he has pain in R sided neck. VS: SBP 89. HR 70s. T 93 NAD, CV: RRR Lungs: CTAB Ext: L BKA, no edema on RLE. Abd: soft, Nt, ND , NL BS a/p : Unfortunate 62 y/o man with h/o ESRD , other medical problems who is being treated for MRSA bacteremia and sepsis 1- severe sepsis 2- hypotension in a patient who is hypertensive on BP meds 3- hypothermia 4- Mrsa bacteremia 5- hypoglycemia this am plan: - bolus of 250 CC - can repeat if needed - might need pressors - mendel lopez - repeat Sugar - blood cx repeated this am - cont Abx - Tx to ICU. spoke to Lance. pt accepted. CCT 35 min Physical Examination Vital Signs: Vital Signs Temperature 96.5 F L 09/28/17 06:33 Pulse Rate 88 09/28/17 06:33 Respiratory Rate 20 09/28/17 06:33 Blood Pressure 108/55 09/28/17 06:33 O2 Sat by Pulse Oximetry (%) 94 L 09/27/17 21:00 Labs: CBC, BMP 09/28/17 07:30 Critical Care Total Critical Care Time (in minutes): 35 Critical Care Statement: The care of this patient involved high complexity decision making to prevent further life threatening deterioration of the patient 's condition and/or to evaluate & treat vital organ system(s) failure or risk of failure.
[2017-09-28 10:18] LABS: ANION GAP 12 (8-16); BLOOD UREA NITROGEN 29 mg/dL (7-18); CALCIUM 7.9 mg/dL (8.5-10.1); CHLORIDE 99 mmol/L (98-107); CO2 30 mmol/L (21-32); CREATININE 4.5 mg/dL (0.7-1.3); POTASSIUM 3.4 mmol/L (3.5-5.1); SODIUM 141 mmol/L (136-145)
[2017-09-28 10:38] LABS: PHOSPHOROUS 3.8 mg/dL (2.5-4.9)
[2017-09-28 10:45] LABS: GLUCOSE,RANDOM 36 mg/dL (74-106)
[2017-09-28] MEDS ORDERED: SODIUM CHLORIDE 250 ML IV STA (11:21)
--- NOTE | 2017-09-28 11:36 | PN ---
Progress Note, Physician Chief Complaint: Events noted Not in distress History of Present Illness: Patient was seen and examined. Awake and alert. Chart was reviewed Denies chest pain, SOB or palpitations. Noted hypotension, hypethermia and hypoglycemia due to sepsis - Current Medication List Current Medications: Active Medications Acetaminophen (Tylenol -) 650 mg PO Q6H PRN PRN Reason: PAIN LEVEL 7 - 10 Last Admin: 09/27/17 23:03 Dose: 650 mg Albuterol/Ipratropium (Duoneb -) 1 amp NEB RQID [facility] Last Admin: 09/28/17 07:42 Dose: 1 amp Amlodipine Besylate (Norvasc -) 10 mg PO DAILY [facility] Last Admin: 09/28/17 09:15 Dose: Not Given Chlorhexidine Gluconate (Hibiclens For Decolonization -) 1 applic TP HS [facility] Dextrose (D50w (Vial) -) 25 gm IVPUSH PRN PRN PRN Reason: HYPOGLYCEMIA Doxazosin Mesylate (Cardura -) 4 mg PO DAILY [facility] Last Admin: 09/28/17 09:15 Dose: Not Given Furosemide (Lasix -) 80 mg PO DAILY [facility] Last Admin: 09/28/17 09:17 Dose: 80 mg Gabapentin (Neurontin -) 100 mg PO BID [facility] Last Admin: 09/28/17 09:17 Dose: 100 mg Heparin Sodium (Porcine) (Heparin -) 5,000 unit SQ TID [facility] Last Admin: 09/28/17 05:58 Dose: 5,000 unit Vancomycin HCl 1,000 mg/ (Dextrose) 250 mls @ 166.667 mls/hr IVPB ONCE ONE; Protocol Stop: 09/26/17 07:29 Piperacillin Sod/Tazobactam (Sod 2.25 gm/ Dextrose) 50 mls @ 100 mls/hr IVPB Q8H-IV [facility]; Protocol Last Admin: 09/28/17 09:54 Dose: 100 mls/hr Sodium Chloride (Normal Saline -) 250 mls @ 250 mls/hr IV [facility]IR [facility] Stop: 09/28/17 12:20 Insulin Aspart (Novolog Vial Sliding Scale -) 1 vial SQ ACHS [facility]; Protocol Last Admin: 09/28/17 06:32 Dose: Not Given Insulin Detemir (Levemir Vial) 10 units SQ BID@1000,1700 [facility] Last Admin: 09/28/17 09:18 Dose: Not Given Metoprolol Tartrate (Lopressor -) 50 mg PO BID [facility] Last Admin: 09/28/17 09:17 Dose: Not Given Mupirocin (Bactroban Ointment (For Decolonization) -) 1 applic NS BID [facility] Stop: 10/03/17 21:59 Sevelamer Carbonate (Renvela -) 1,600 mg PO TIDCM [facility] Last Admin: 09/28/17 09:17 Dose: 1,600 mg Trazodone HCl (Desyrel -) 300 mg PO HS [facility] Last Admin: 09/27/17 21:27 Dose: 300 mg - Objective Vital Signs: Vital Signs Temperature 93.7 F L 09/28/17 09:00 Pulse Rate 85 09/28/17 09:45 Respiratory Rate 18 09/28/17 09:45 Blood Pressure 89/59 09/28/17 09:45 O2 Sat by Pulse Oximetry (%) 98 09/28/17 09:00 HENT: Yes: Atraumatic Neck: Yes: Supple Cardiovascular: Yes: Regular Rate and Rhythm, S1, S2. No: Murmur Respiratory: Yes: CTA Bilaterally Gastrointestinal: Yes: Normal Bowel Sounds, Soft. No: Tenderness Extremities: Yes: Amputation Edema: No Additional Findings/Remarks: - Review of Systems Constitutional: denies: Chills, Fever Cardiovascular: denies: Shortness of Breath. denies: Chest Pain, Palpitations Respiratory: denies: SOB, SOB on Exertion. denies: Cough, Hemoptysis, Orthopnea , PND Gastrointestinal: denies: Abdominal Pain, Constipation, Diarrhea, Melena, Nausea , Rectal Bleeding, Vomiting Musculoskeletal: denies: Back Pain, Joint Pain Neurological: reports: Weakness. denies: Dizziness, Headache, Seizure, Syncope Labs: CBC, BMP 09/28/17 07:30 09/28/17 07:30 INR, PTT INR 1.14 (0.82-1.09) 09/25/17 10:38 Problem List - Problems (1) FROYLAN (acute kidney injury) Code(s): N17.9 - ACUTE KIDNEY FAILURE, UNSPECIFIED (2) Bacteremia due to Gram-positive bacteria Code(s): R78.81 - BACTEREMIA (3) ESRD (end stage renal disease) Code(s): N18.6 - END STAGE RENAL DISEASE (4) Peripheral vascular disease due to secondary diabetes Code(s): E13.51 - OTH DIABETES W DIABETIC PERIPHERAL ANGIOPATHY W/O GANGRENE (5) Sepsis Code(s): A41.9 - SEPSIS, UNSPECIFIED ORGANISM Qualifiers: Sepsis type: methicillin susceptible Staphylococcus aureus Qualified Code(s ): A41.01 - Sepsis due to Methicillin susceptible Staphylococcus aureus (6) Diabetes mellitus, insulin dependent (IDDM), controlled Code(s): E11.9 - TYPE 2 DIABETES MELLITUS WITHOUT COMPLICATIONS; Z79.4 - HALFWAY (CURRENT) USE OF INSULIN (7) Acute on chronic diastolic heart failure Code(s): I50.33 - ACUTE ON CHRONIC DIASTOLIC (CONGESTIVE) HEART FAILURE (8) Acute renal failure on dialysis Code(s): N17.9 - ACUTE KIDNEY FAILURE, UNSPECIFIED; Z99.2 - DEPENDENCE ON RENAL DIALYSIS (9) Amputation, below knee, unilateral, traumatic Code(s): S88.119A - COMPLETE TRAUM AMP AT LEV BETW KN & ANKL, UNSP LOW LEG, INIT (10) Hypoglycemia Code(s): E16.2 - HYPOGLYCEMIA, UNSPECIFIED (11) Anemia Code(s): D64.9 - ANEMIA, UNSPECIFIED Qualifiers: Anemia type: due to chronic kidney disease (12) Diabetes mellitus Code(s): E11.9 - TYPE 2 DIABETES MELLITUS WITHOUT COMPLICATIONS Qualifiers: Diabetes mellitus type: type 2 Diabetes mellitus plate grainer insulin use: without halfway use Diabetes mellitus complication status: without complication Qualified Code(s): E11.9 - Type 2 diabetes mellitus without complications (13) HTN (hypertension) Code(s): I10 - ESSENTIAL (PRIMARY) HYPERTENSION Qualifiers: Hypertension type: essential hypertension Qualified Code(s): I10 - Essential (primary) hypertension Assessment/Plan 1. MSSA bacteremia suspect line sepsis from indwelling dialysis catheter - catheter removed 2. Hypotension - suspect septic shock 3. ESRD on HD, suspected diabetic nephropathy with hyperkalemia and hyponatremia 4. Moderate pericardial effusion referable to uremic pericarditis 5. Type 2 DM 6. HTN/HCVD 7. PAD 8. Anemia of chronic kidney disease 9. Bacteruria 10. PAD s/p left BKA PLAN: 1. Antibiotic course per ID, observe for clearance post catheter removal. If bacteremia persists, will consider CHAKA to exclude endocarditis. Currently being transferred to ICU for further close monitoring 2. HD via left femoral groin line and to address pericardial effusion and uremic pericaditis although does not appear to be in tamponade 3. Cardiac medication if BP permits [place] Diallo MD
--- NOTE | 2017-09-28 12:45 | PN ---
Physical Exam: SUBJECTIVE: Patient seen and examined at the bedside. Having chills. Transfer to icu for hyperthermia, hypotension: may need pressors OBJECTIVE: Vital Signs Period Temp Pulse Resp BP Sys/Gutierrez Pulse Ox Last 24 Hr 93.7 F-103.5 F 72-134 18-22 88-160/48-71 94-98 GENERAL: The patient is awake, alert, and fully oriented, in no acute distress. HEAD: Normal with no signs of trauma. EYES: PERRL, extraocular movements intact, sclera anicteric, conjunctiva clear. No ptosis. ENT: Ears normal, nares patent, oropharynx clear without exudates, moist mucous membranes. NECK: Trachea midline, full range of motion, supple, right neck pain LUNGS: scattered rhonchi bilaterally HEART: Regular rate and rhythm, S1, S2 without murmur, rub or gallop. ABDOMEN: Soft, nontender, nondistended, normoactive bowel sounds, no guarding, no rebound, no hepatosplenomegaly, no masses. EXTREMITIES: Left BKA, skin intact, NEUROLOGICAL: Normal speech, gait not observed. PSYCH: Normal mood, normal affect. SKIN: Warm, dry, normal turgor, no rashes or lesions noted Laboratory Results - last 24 hr 09/26/17 09/27/17 09/27/17 22:30 16:39 22:12 WBC RBC Hgb Hct MCV MCH MCHC RDW Plt Count MPV Neutrophils % Lymphocytes % Monocytes % Eosinophils % Basophils % Nucleated RBC % Sodium Potassium Chloride Carbon Dioxide Anion Gap BUN Creatinine POC Glucometer 248 209 Random Glucose Calcium Phosphorus Random Vancomycin Hep C Ab Diagnostic 0.2 Liver Fibrosis Interp 09/28/17 09/28/17 09/28/17 05:59 07:05 07:30 WBC RBC Hgb Hct MCV MCH MCHC RDW Plt Count MPV Neutrophils % Lymphocytes % Monocytes % Eosinophils % Basophils % Nucleated RBC % Sodium Potassium Chloride Carbon Dioxide Anion Gap BUN Creatinine POC Glucometer 48 164 Random Glucose Calcium Phosphorus Random Vancomycin 18.378 Hep C Ab Diagnostic Liver Fibrosis Interp 09/28/17 09/28/17 09/28/17 07:30 07:30 07:30 WBC 13.3 H RBC 3.09 L Hgb 8.9 L Hct 27.8 L MCV 90.0 MCH 28.7 MCHC 31.9 L RDW 16.4 H Plt Count 272 MPV 9.6 Neutrophils % 81.3 Lymphocytes % 5.6 L D Monocytes % 12.4 H Eosinophils % 0.4 Basophils % 0.3 Nucleated RBC % 0 Sodium 141 Potassium 3.4 L Chloride 99 Carbon Dioxide 30 Anion Gap 12 BUN 29 H D Creatinine 4.5 H D POC Glucometer Random Glucose 36 L* D Cancelled Calcium 7.9 L Phosphorus 3.8 Random Vancomycin Hep C Ab Diagnostic Liver Fibrosis Interp 09/28/17 09/28/17 09/28/17 07:30 09:48 11:41 WBC RBC Hgb Hct MCV MCH MCHC RDW Plt Count MPV Neutrophils % Lymphocytes % Monocytes % Eosinophils % Basophils % Nucleated RBC % Sodium Potassium Chloride Carbon Dioxide Anion Gap BUN Creatinine POC Glucometer 239 300 Random Glucose Calcium Phosphorus Cancelled Random Vancomycin Hep C Ab Diagnostic Liver Fibrosis Interp Active Medications Generic Name Dose Route Start Last Admin Trade Name Freq PRN Reason Stop Dose Admin Acetaminophen 650 mg 09/25/17 09:20 09/27/17 23:03 Tylenol - PO 650 mg Q6H PRN Administration PAIN LEVEL 7 - 10 Albuterol/Ipratropium 1 amp 09/25/17 16:00 09/28/17 07:42 Duoneb - NEB 1 amp RQID [facility] Administration Chlorhexidine Gluconate 1 applic 09/28/17 22:00 Hibiclens For Decolonization - TP HS [facility] Dextrose 25 gm 09/28/17 06:12 D50w (Vial) - IVPUSH PRN PRN HYPOGLYCEMIA Doxazosin Mesylate 4 mg 09/25/17 10:00 09/28/17 09:15 Cardura - PO Not Given DAILY [facility] Gabapentin 100 mg 09/24/17 22:00 09/28/17 09:17 Neurontin - PO 100 mg BID [facility] Administration Heparin Sodium (Porcine) 5,000 unit 09/27/17 22:00 09/28/17 05:58 Heparin - SQ 5,000 unit TID [facility] Administration Vancomycin HCl 1,000 mg/ 250 mls @ 166.667 mls/hr 09/26/17 06:00 Dextrose IVPB 09/26/17 07:29 ONCE ONE Protocol Piperacillin Sod/Tazobactam 50 mls @ 100 mls/hr 09/26/17 18:00 09/28/17 09:54 Sod 2.25 gm/ Dextrose IVPB 100 mls/hr Q8H-IV [facility] Administration Protocol Vancomycin HCl 1,000 mg/ 250 mls @ 166.667 mls/hr 09/28/17 12:43 Dextrose IVPB 09/28/17 14:12 ONCE ONE Protocol Insulin Aspart 1 vial 09/25/17 09:16 09/28/17 12:11 Novolog Vial Sliding Scale - SQ Not Given ACHS [facility] Protocol Insulin Detemir 10 units 09/25/17 10:00 09/28/17 09:18 Levemir Vial SQ Not Given BID@1000,1700 [facility] Metoprolol Tartrate 50 mg 09/24/17 22:00 09/28/17 09:17 Lopressor - PO Not Given BID [facility] Mupirocin 1 applic 09/28/17 22:00 Bactroban Ointment (For Decolonization) - NS 10/03/17 21:59 BID [facility] Sevelamer Carbonate 1,600 mg 09/24/17 19:45 09/28/17 12:10 Renvela - PO Not Given TIDCM [facility] Trazodone HCl 300 mg 09/24/17 22:00 09/27/17 21:27 Desyrel - PO 300 mg HS [facility] Administration ASSESSMENT/PLAN: Patient is a 61 year old male with a significant past medical history of diabetes mellitus, hypertension, ESRD (Tues, Thurs, Sat), osteoarthritis and left below the knee amputation. He presents to the ER after being found to have + blood cultures from his last dialysis session 1 week ago from his right permacath site. His permacath has been removed and repeat blood cultures here show presumptive MRSA and his urine now with klebsiella. He has been started on broad on Vanco and Zosyn. His CT of nect shows a possible septic vs aspectic thrombus. He as been transferred to the ICU on 09/28/17 when he became hypoglycemic, hypothermic and hypotensive. Imaging: CT/Soft Tissue Neck CT with contrast 09/27/2017: 1. septic vs aseptic thrombus for right IJ to sigmoid sinus, no abscess in neck seen. Findings discussed via telephone with Dr. Saba, radiology ID: Sepsis Bacteremia Urosepsis + blood cultures from right permacath with presumptive MRSA UC also shows kleb in urine Fevers since admission and now having hypothermia, hypotension and hypoglycemia On Vanco renally dosed, on Zosyn, ID to add Daptomycin today Repeat blood cultures pending Vascular Septic vs aseptic thrombus seen in right IJ discussed with vascular No abscess seen No anticoagulation per vascular Brain MRI and Neck MRA ordered Renal: ESRD dialysis per renal Endocrine Diabetes On SS and Levemir CV: Hypertension, controlled continue home medications Infected Permacath/generalized weakness Moderate pericardial effusion, bacteremia Possible CHAKA as per Cardio Echo reviewed F.E.N. Fluids: none needed, fluid restriction 1.2 L Electrolyes: monitor Nutrition: renal diet Prophy: DVT: Heparin TID GI: deferred Visit type - Emergency Visit Emergency Visit: Yes ED Registration Date: 09/24/17 Care time: The patient presented to the Emergency Department on the above date and was hospitalized for further evaluation of their emergent condition. - New Patient This patient is new to me today: No - Critical Care Critical Care patient: Yes Total Critical Care Time (in minutes): 60 Critical Care Statement: The care of this patient involved high complexity decision making to prevent further life threatening deterioration of the patient 's condition and/or to evaluate & treat vital organ system(s) failure or risk of failure.
[2017-09-28] MEDS ORDERED: VANCOMYCIN 1 GM PREMIX - 1 GM/200 ML BAG IVPB SCH (13:00)
[2017-09-28] MEDS ORDERED: SODIUM CHLORIDE IVPB ONE (13:34)
[2017-09-28] MEDS ORDERED: DAPTOMYCIN IVPB ONE (13:34)
--- NOTE | 2017-09-28 13:44 | PN ---
Progress Note, Physician History of Present Illness: Pt remains unstable. Hypotensive to 93F earlier, now 103F with rigors/ tachycardia. For transfer to ICU. - Current Medication List Current Medications: Active Medications Acetaminophen (Tylenol -) 650 mg PO Q6H PRN PRN Reason: PAIN LEVEL 7 - 10 Last Admin: 09/27/17 23:03 Dose: 650 mg Albuterol/Ipratropium (Duoneb -) 1 amp NEB RQID [facility] Last Admin: 09/28/17 07:42 Dose: 1 amp Chlorhexidine Gluconate (Hibiclens For Decolonization -) 1 applic TP HS [facility] Dextrose (D50w (Vial) -) 25 gm IVPUSH PRN PRN PRN Reason: HYPOGLYCEMIA Doxazosin Mesylate (Cardura -) 4 mg PO DAILY [facility] Last Admin: 09/28/17 09:15 Dose: Not Given Gabapentin (Neurontin -) 100 mg PO BID [facility] Last Admin: 09/28/17 09:17 Dose: 100 mg Heparin Sodium (Porcine) (Heparin -) 5,000 unit SQ TID [facility] Last Admin: 09/28/17 05:58 Dose: 5,000 unit Vancomycin HCl 1,000 mg/ (Dextrose) 250 mls @ 166.667 mls/hr IVPB ONCE ONE; Protocol Stop: 09/26/17 07:29 Piperacillin Sod/Tazobactam (Sod 2.25 gm/ Dextrose) 50 mls @ 100 mls/hr IVPB Q8H-IV [facility]; Protocol Last Admin: 09/28/17 09:54 Dose: 100 mls/hr Vancomycin HCl (Vancomycin 1 Gm Premix -) 1 gm in 200 mls @ 133.333 mls/hr IVPB ONCE [facility]; Protocol Stop: 09/29/17 12:59 Last Admin: 09/28/17 13:21 Dose: 133.333 mls/hr Daptomycin 475 mg/ Sodium (Chloride) 50 mls @ 50 mls/hr IVPB ONCE ONE; Protocol Stop: 09/28/17 14:33 Insulin Aspart (Novolog Vial Sliding Scale -) 1 vial SQ ACHS [facility]; Protocol Last Admin: 09/28/17 12:11 Dose: Not Given Insulin Detemir (Levemir Vial) 10 units SQ BID@1000,1700 [facility] Last Admin: 09/28/17 09:18 Dose: Not Given Metoprolol Tartrate (Lopressor -) 50 mg PO BID [facility] Last Admin: 09/28/17 09:17 Dose: Not Given Mupirocin (Bactroban Ointment (For Decolonization) -) 1 applic NS BID [facility] Stop: 10/03/17 21:59 Sevelamer Carbonate (Renvela -) 1,600 mg PO TIDCM [facility] Last Admin: 09/28/17 12:10 Dose: Not Given Trazodone HCl (Desyrel -) 300 mg PO [facility] Last Admin: 09/27/17 21:27 Dose: 300 mg - Objective Vital Signs: Vital Signs Temperature 98.4 F 09/28/17 11:45 Pulse Rate 113 H 09/28/17 11:45 Respiratory Rate 18 09/28/17 11:45 Blood Pressure 118/70 09/28/17 11:45 O2 Sat by Pulse Oximetry (%) 98 09/28/17 09:00 Constitutional: Yes: Moderate Distress Neck: Yes: Supple Cardiovascular: Yes: Tachycardia Respiratory: Yes: Regular Gastrointestinal: Yes: Normal Bowel Sounds, Soft Extremities: Yes: Amputation (LT BKA) Neurological: Yes: Alert Labs: CBC, BMP 09/28/17 07:30 09/28/17 07:30 INR, PTT INR 1.14 (0.82-1.09) 09/25/17 10:38 Microbiology 09/26/17 17:35 Blood - Peripheral Venous Blood Culture - Final Presumptive Mrsa (Pbp2a Pos) 09/26/17 17:35 Blood - Peripheral Venous Blood Culture - Final Presumptive Mrsa (Pbp2a Pos) 09/25/17 10:50 Wound Gram Stain - Final 09/25/17 10:50 Wound Wound Culture - Preliminary Mr S Aureus 09/24/17 11:24 Blood - Peripheral Venous Blood Culture - Final Staphylococcus Latex Coag Pos 09/24/17 11:24 Blood - Peripheral Venous Blood Culture - Final Mr S Aureus 09/24/17 16:10 Urine - Urine Clean Catch Urine Culture - Final Klebsiella Pneumoniae Klebsiella Pneumoniae#2 09/26/17 12:10 Sputum - Expectorated Gram Stain - Final 09/26/17 12:10 Sputum - Expectorated Sputum Culture - Preliminary NORMAL RESPIRATORY SHERIE 09/28/17 Blood cultures - results pending Problem List - Problems (1) Bacteremia due to Gram-positive bacteria Code(s): R78.81 - BACTEREMIA (2) Peripheral vascular disease due to secondary diabetes Code(s): E13.51 - OTH DIABETES W DIABETIC PERIPHERAL ANGIOPATHY W/O GANGRENE (3) Diabetes mellitus, insulin dependent (IDDM), controlled Code(s): E11.9 - TYPE 2 DIABETES MELLITUS WITHOUT COMPLICATIONS; Z79.4 - MIXING PAN TENDER (CURRENT) USE OF INSULIN (4) HTN (hypertension) Code(s): I10 - ESSENTIAL (PRIMARY) HYPERTENSION Qualifiers: Hypertension type: essential hypertension Qualified Code(s): I10 - Essential (primary) hypertension Assessment/Plan Persistent MRSA Bacteremia s/p permcath removal Severe Sepsis Rt IJ thrombus ESRD on HD Klebsiella UTI PVD s/p Lt BKA DM - pt fluctuating between hypothermia and fever - leukocytosis/tachycardic - Vancomycin IV running, will give dose of Daptomycin - continue Zosyn - f/u repeat blood cultures - repeat cbc, send cpk in am - Renal following - transfer to ICU requested 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
[2017-09-28] MEDS: ACETAMINOPHEN 325 MG TABLET (FP) PO PRN (13:45)
--- NOTE | 2017-09-28 14:11 | PN ---
Progress Note (short form) - Note Progress Note: Renal Follow up for ESRD on HD Pt seen and examined at the bedside pt is hypothermic this AM has chills BP is low and getting IVF asking for more fluids to drink denies any sob, chest pain Vital Signs Temperature 98.4 F 09/28/17 11:45 Pulse Rate 113 H 09/28/17 11:45 Respiratory Rate 18 09/28/17 11:45 Blood Pressure 118/70 09/28/17 11:45 O2 Sat by Pulse Oximetry (%) 98 09/28/17 09:00 NAD awake and alert RRR CTA soft NT/ND no LE edema CBC, BMP 09/28/17 07:30 09/28/17 07:30 Current Medications Acetaminophen (Tylenol -) 650 mg PO Q6H PRN PRN Reason: PAIN LEVEL 7 - 10 Last Admin: 09/28/17 13:45 Dose: 650 mg Albuterol/Ipratropium (Duoneb -) 1 amp NEB RQID [facility] Last Admin: 09/28/17 11:20 Dose: 1 amp Chlorhexidine Gluconate (Hibiclens For Decolonization -) 1 applic TP HS [facility] Dextrose (D50w (Vial) -) 25 gm IVPUSH PRN PRN PRN Reason: HYPOGLYCEMIA Doxazosin Mesylate (Cardura -) 4 mg PO DAILY [facility] Last Admin: 09/28/17 09:15 Dose: Not Given Gabapentin (Neurontin -) 100 mg PO BID [facility] Last Admin: 09/28/17 09:17 Dose: 100 mg Heparin Sodium (Porcine) (Heparin -) 5,000 unit SQ TID [facility] Last Admin: 09/28/17 13:46 Dose: 5,000 unit Vancomycin HCl 1,000 mg/ (Dextrose) 250 mls @ 166.667 mls/hr IVPB ONCE ONE; Protocol Stop: 09/26/17 07:29 Piperacillin Sod/Tazobactam (Sod 2.25 gm/ Dextrose) 50 mls @ 100 mls/hr IVPB Q8H-IV [facility]; Protocol Last Admin: 09/28/17 09:54 Dose: 100 mls/hr Vancomycin HCl (Vancomycin 1 Gm Premix -) 1 gm in 200 mls @ 133.333 mls/hr IVPB ONCE [facility]; Protocol Stop: 09/29/17 12:59 Last Admin: 09/28/17 13:21 Dose: 133.333 mls/hr Daptomycin 475 mg/ Sodium (Chloride) 50 mls @ 50 mls/hr IVPB ONCE ONE; Protocol Stop: 09/28/17 14:33 Insulin Aspart (Novolog Vial Sliding Scale -) 1 vial SQ ACHS [facility]; Protocol Last Admin: 09/28/17 12:11 Dose: Not Given Insulin Detemir (Levemir Vial) 10 units SQ BID@1000,1700 [facility] Last Admin: 09/28/17 09:18 Dose: Not Given Metoprolol Tartrate (Lopressor -) 50 mg PO BID [facility] Last Admin: 09/28/17 09:17 Dose: Not Given Mupirocin (Bactroban Ointment (For Decolonization) -) 1 applic NS BID [facility] Stop: 10/03/17 21:59 Sevelamer Carbonate (Renvela -) 1,600 mg PO TIDCM [facility] Last Admin: 09/28/17 12:10 Dose: Not Given Trazodone HCl (Desyrel -) 300 mg PO HS [facility] Last Admin: 09/27/17 21:27 Dose: 300 mg 62 year old AA gentleman with PMhx of ESRD on HD (TTS) secondary to suspected diabetic nephropathy, DM, Hypertension, PVD who presented outpatient blood cultures that were positive for gram positive Cocci. #ESRD on HD #Hyperkalemia #Hyponatremia #Gram + bacteremia/Sepsis #Anemia #Pericardial effusion repeat blood cultures grew MRSA IV Abx changed to Dapto per ID I removed the femoral dialysis catheter today IVF Bolous PRN for hypotension ICU transfer in process Trend renal function and volume status to determine next dialysis Renal diet continue oral diuretics Miguel Jansen DO
[2017-09-28] MEDS ORDERED: VANCOMYCIN 1 GM PREMIX - 1 GM/200 ML BAG IVPB ONE (14:28)
[2017-09-28] MEDS ORDERED: VANCOMYCIN 1,000 MG in DEXTROSE 5%-WATER - 250 ML IVPB ONE (19:28)
[2017-09-28] MEDS ORDERED: PT OWN MED DRAWER 7, Y5N ONE (21:20)
[2017-09-28] MEDS: MUPIROCIN 2% TOPICAL OINTMENT FOR DECOLONIZATION NS SCH (21:22)
[2017-09-28] MEDS ORDERED: oxyCODONE HCL 5 MG TABLET PO PRN (21:28)
[2017-09-28] MEDS: CHLORHEXIDINE GLUCONATE 4% CLEANSER FOR DECOLONIZATION TP SCH (21:33)
[2017-09-28] MEDS: traZODone HCL 100 MG TABLET (FP) PO SCH (21:33)
[2017-09-28] MEDS ORDERED: oxyCODONE HCL 5 MG TABLET ONE (21:36)
[2017-09-28] MEDS: oxyCODONE HCL 5 MG TABLET PO PRN (21:39)
[2017-09-29] MEDS ORDERED: PIPERACILLIN/TAZOBACTAM 2.25 GM VIAL IVPB ONE ×3 (02:10→17:10)
[2017-09-29] MEDS ORDERED: DEXTROSE 5%-WATER - 50 ML IVPB ONE ×3 (02:10→17:11)
[2017-09-29] MEDS: PIPERACILLIN/TAZOB 2.25 GM 2.25 GM in DEXTROSE 5%-WATER - 50 ML IVPB SCH ×3 (02:12→17:12)
[2017-09-29] MEDS: ACETAMINOPHEN 325 MG TABLET (FP) PO PRN ×3 (06:27→21:27)
[2017-09-29] MEDS: INSULIN SLIDING SCALE (NOVOLOG) 1 VIAL SQ SCH ×4 (06:29→21:30)
[2017-09-29] MEDS: HEPARIN NA (PORCINE) 5,000 UNITS/ML 1ML VIAL SQ SCH ×3 (06:29→21:27)
[2017-09-29 06:51] LABS: HBSAG SCREEN Negative (Negative); HEP A AB, IGM Negative (Negative); HEP B CORE AB, TOT Positive (Negative)
[2017-09-29 06:53] LABS: BASO % 0.5 % (0-2.0); EOS % 1.3 % (0-4.5); HEMATOCRIT 26.6 % (35.4-49); HEMOGLOBIN 8.6 GM/dL (11.7-16.9); LYMPH % 4.4 % (8-40); MCH 28.8 pg (25.7-33.7); MCHC 32.3 g/dl (32.0-35.9); MEAN CELL VOLUME 89.1 fl (80-96); MEAN PLT VOLUME 10.1 fl (7.5-11.1); MONO % 9.9 % (3.8-10.2); NEUT % 83.9 % (42.8-82.8); PLATELET COUNT 318 K/MM3 (134-434); RBC 2.99 M/mm3 (4.00-5.60); RDW 15.9 % (11.9-15.9); WHITE BLOOD COUNT 16.6 K/mm3 (4.0-10.0)
[2017-09-29 08:13] LABS: CHLORIDE 92 mmol/L (98-107); POTASSIUM 4.1 mmol/L (3.5-5.1); SODIUM 132 mmol/L (136-145)
--- NOTE | 2017-09-29 08:16 | PN ---
Progress Note (short form) - Note Progress Note: PULM/CCM Seen and examined in ICU CC: fever 24Hr Events -came down for hypotension, however normotensive, non toxic on arrival Tmxax 102 -stable overnight -still positive bcxl -awaiting need for WATCH AND CLOCK REPAIR CLERK to replace HD cath Active Medications Acetaminophen (Tylenol -) 650 mg PO Q6H PRN PRN Reason: PAIN LEVEL 7 - 10 Last Admin: 09/29/17 06:27 Dose: 650 mg Albuterol/Ipratropium (Duoneb -) 1 amp NEB RQID [facility] Last Admin: 09/28/17 21:00 Dose: 1 amp Chlorhexidine Gluconate (Hibiclens For Decolonization -) 1 applic TP HS [facility] Last Admin: 09/28/17 21:33 Dose: 1 applic Dextrose (D50w (Vial) -) 25 gm IVPUSH DAILY PRN PRN Reason: HYPOGLYCEMIA Doxazosin Mesylate (Cardura -) 4 mg PO DAILY [facility] Gabapentin (Neurontin -) 100 mg PO BID [facility] Last Admin: 09/28/17 21:21 Dose: 100 mg Heparin Sodium (Porcine) (Heparin -) 5,000 unit SQ TID [facility] Last Admin: 09/29/17 06:29 Dose: 5,000 unit Vancomycin HCl 1,000 mg/ (Dextrose) 250 mls @ 166.667 mls/hr IVPB ONCE ONE; Protocol Stop: 09/28/17 20:57 Piperacillin Sod/Tazobactam (Sod 2.25 gm/ Dextrose) 50 mls @ 100 mls/hr IVPB Q8H-IV [facility]; Protocol Last Admin: 09/29/17 02:12 Dose: 100 mls/hr Insulin Aspart (Novolog Vial Sliding Scale -) 1 vial SQ ACHS [facility]; Protocol Last Admin: 09/29/17 06:29 Dose: Not Given Insulin Detemir (Levemir Vial) 10 units SQ BID@1000,1700 [facility] Metoprolol Tartrate (Lopressor -) 50 mg PO BID [facility] Last Admin: 09/28/17 21:17 Dose: Not Given Mupirocin (Bactroban Ointment (For Decolonization) -) 1 applic NS BID [facility] Stop: 10/03/17 21:59 Last Admin: 09/28/17 21:22 Dose: 1 applic Oxycodone HCl (Roxicodone -) 5 mg PO Q4H PRN PRN Reason: PAIN LEVEL 4 - 6 Oxycodone HCl (Roxicodone -) 10 mg PO Q4H PRN PRN Reason: PAIN LEVEL 7 - 10 Last Admin: 09/28/17 21:39 Dose: 10 mg Sevelamer Carbonate (Renvela -) 1,600 mg PO TIDCM [facility] Trazodone HCl (Desyrel -) 300 mg PO HS [facility] Last Admin: 09/28/17 21:33 Dose: 300 mg BMP pending form today CBCD WBC 16.6 K/mm3 (4.0-10.0) H 09/29/17 05:00 RBC 2.99 M/mm3 (4.00-5.60) L 09/29/17 05:00 Hgb 8.6 GM/dL (11.7-16.9) L 09/29/17 05:00 Hct 26.6 % (35.4-49) L 09/29/17 05:00 MCV 89.1 fl (80-96) 09/29/17 05:00 MCHC 32.3 g/dl (32.0-35.9) 09/29/17 05:00 RDW 15.9 % (11.9-15.9) 09/29/17 05:00 Plt Count 318 K/MM3 (134-434) 09/29/17 05:00 MPV 10.1 fl (7.5-11.1) 09/29/17 05:00 CMP Sodium 141 mmol/L (136-145) 09/28/17 07:30 Potassium 3.4 mmol/L (3.5-5.1) L 09/28/17 07:30 Chloride 99 mmol/L (98-107) 09/28/17 07:30 Carbon Dioxide 30 mmol/L (21-32) 09/28/17 07:30 Anion Gap 12 (8-16) 09/28/17 07:30 BUN 29 mg/dL (7-18) H D 09/28/17 07:30 Creatinine 4.5 mg/dL (0.7-1.3) H D 09/28/17 07:30 Creat Clearance w eGFR 7.76 (>60) 09/27/17 08:16 Calcium 7.9 mg/dL (8.5-10.1) L 09/28/17 07:30 Total Bilirubin 0.4 mg/dL (0.2-1.0) D 09/27/17 08:16 AST 34 U/L (15-37) D 09/27/17 08:16 ALT 15 U/L (12-78) D 09/27/17 08:16 Alkaline Phosphatase 87 U/L (45-117) 09/27/17 08:16 Total Protein 5.7 g/dl (6.4-8.2) L 09/27/17 08:16 Albumin 2.1 g/dl (3.4-5.0) L 09/27/17 08:16 Vital Signs Temp 102.4 F H 09/29/17 06:00 Pulse 110 H 09/29/17 06:00 Resp 22 09/29/17 06:00 BP 132/81 09/29/17 06:00 Pulse Ox 98 09/28/17 20:40 Intake & Output 09/28/17 09/28/17 09/29/17 11:59 23:59 11:59 Intake Total 50 290 50 Balance 50 290 50 Weight 79.435 kg 78.9 kg Intake: IVPB 50 50 50 Oral 240 Other: Voiding Method Bedside Commode Bedside Commode # Unmeasured Voids Void 1 1 1 Bowel Movement Yes Yes Yes # Bowel Movements 1 1 1 Microbiology 09/28/17 06:15 Blood - Peripheral Venous Blood Culture - Preliminary NO GROWTH OBTAINED AFTER 24 HOURS, INCUBATION TO CONTINUE FOR 4 DAYS. 09/28/17 06:00 Blood - Peripheral Venous Blood Culture - Preliminary Pending Organism 09/26/17 12:10 Sputum - Expectorated Gram Stain - Final 09/26/17 12:10 Sputum - Expectorated Sputum Culture - Final NORMAL RESPIRATORY SHERIE 09/26/17 17:35 Blood - Peripheral Venous Blood Culture - Final Presumptive Mrsa (Pbp2a Pos) 09/26/17 17:35 Blood - Peripheral Venous Blood Culture - Final Presumptive Mrsa (Pbp2a Pos) 09/25/17 10:50 Wound Gram Stain - Final 09/25/17 10:50 Wound Wound Culture - Preliminary S Aureus 09/24/17 11:24 Blood - Peripheral Venous Blood Culture - Final Staphylococcus Latex Coag Pos 09/24/17 11:24 Blood - Peripheral Venous Blood Culture - Final Mr S Aureus 05/29/18 16:10 Urine - Urine Clean Catch Urine Culture - Final Klebsiella Pneumoniae Klebsiella Pneumoniae#2 PE: HEENT: PERRL, NCAT, R posterior neck with swelling and pain (known venous thrombus, likely infected) PULM: clear anterior, no distresss CV: RRR, no mr.r gl appreciated ABD: +BS, soft ExT: LBKA, well healed, no signs of infection Neuro: Awake alert A/ 62 y/o with staph bacteremia 2/2 infected TDC vs infected thrombus. 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
[2017-09-29] MEDS: SEVELAMER CARBONATE 800 MG TAB (FP) PO SCH ×3 (08:19→17:12)
[2017-09-29 08:24] LABS: ALK PHOS 105 U/L (45-117); ANION GAP 11 (8-16); BILIRUBIN,TOTAL 0.4 mg/dL (0.2-1.0); BLOOD UREA NITROGEN 43 mg/dL (7-18); CALCIUM 7.4 mg/dL (8.5-10.1); CO2 29 mmol/L (21-32); CREATININE 6.3 mg/dL (0.7-1.3); MAGNESIUM 1.7 mg/dL (1.8-2.4); PHOSPHOROUS 4.3 mg/dL (2.5-4.9); SGOT/AST 55 U/L (15-37); SGPT/ALT 27 U/L (12-78); TOT PROT 5.8 g/dl (6.4-8.2)
[2017-09-29] MEDS: ALBUTEROL SO4 2.5/IPRATROPIUM 0.5 INH SOL 3 ML VIAL.NEB. NEB SCH ×4 (08:30→21:11)
[2017-09-29 08:34] LABS: GLUCOSE,RANDOM 47 mg/dL (74-106)
--- NOTE | 2017-09-29 09:23 | PN ---
Progress Note, Physician Chief Complaint: Events noted Not in distress History of Present Illness: Patient was seen and examined. Awake and alert. Chart was reviewed Denies chest pain, SOB or palpitations. Still febrile with positive blood culture - Current Medication List Current Medications: Active Medications Acetaminophen (Tylenol -) 650 mg PO Q6H PRN PRN Reason: PAIN LEVEL 7 - 10 Last Admin: 09/29/17 06:27 Dose: 650 mg Albuterol/Ipratropium (Duoneb -) 1 amp NEB RQID [facility] Last Admin: 09/28/17 21:00 Dose: 1 amp Chlorhexidine Gluconate (Hibiclens For Decolonization -) 1 applic TP HS [facility] Last Admin: 09/28/17 21:33 Dose: 1 applic Dextrose (D50w (Vial) -) 25 gm IVPUSH DAILY PRN PRN Reason: HYPOGLYCEMIA Doxazosin Mesylate (Cardura -) 4 mg PO DAILY [facility] Gabapentin (Neurontin -) 100 mg PO BID [facility] Last Admin: 09/28/17 21:21 Dose: 100 mg Heparin Sodium (Porcine) (Heparin -) 5,000 unit SQ TID [facility] Last Admin: 09/29/17 06:29 Dose: 5,000 unit Vancomycin HCl 1,000 mg/ (Dextrose) 250 mls @ 166.667 mls/hr IVPB ONCE ONE; Protocol Stop: 09/28/17 20:57 Piperacillin Sod/Tazobactam (Sod 2.25 gm/ Dextrose) 50 mls @ 100 mls/hr IVPB Q8H-IV [facility]; Protocol Last Admin: 09/29/17 02:12 Dose: 100 mls/hr Insulin Aspart (Novolog Vial Sliding Scale -) 1 vial SQ ACHS [facility]; Protocol Last Admin: 09/29/17 06:29 Dose: Not Given Insulin Detemir (Levemir Vial) 10 units SQ BID@1000,1700 [facility] Metoprolol Tartrate (Lopressor -) 50 mg PO BID [facility] Last Admin: 09/28/17 21:17 Dose: Not Given Mupirocin (Bactroban Ointment (For Decolonization) -) 1 applic NS BID [facility] Stop: 10/03/17 21:59 Last Admin: 09/28/17 21:22 Dose: 1 applic Oxycodone HCl (Roxicodone -) 5 mg PO Q4H PRN PRN Reason: PAIN LEVEL 4 - 6 Oxycodone HCl (Roxicodone -) 10 mg PO Q4H PRN PRN Reason: PAIN LEVEL 7 - 10 Last Admin: 09/28/17 21:39 Dose: 10 mg Sevelamer Carbonate (Renvela -) 1,600 mg PO TIDCM [facility] Last Admin: 09/29/17 08:19 Dose: 1,600 mg Trazodone HCl (Desyrel -) 300 mg PO HS [facility] Last Admin: 09/28/17 21:33 Dose: 300 mg - Objective Vital Signs: Vital Signs Temperature 101.4 F H 09/29/17 08:00 Pulse Rate 104 H 09/29/17 08:00 Respiratory Rate 20 09/29/17 08:00 Blood Pressure 132/81 09/29/17 06:00 O2 Sat by Pulse Oximetry (%) 98 09/28/17 20:40 Neck: Yes: Supple Cardiovascular: Yes: Regular Rate and Rhythm, Tachycardia, S1, S2 Respiratory: Yes: CTA Bilaterally Gastrointestinal: Yes: Normal Bowel Sounds, Soft. No: Tenderness Edema: No Additional Findings/Remarks: - Review of Systems Constitutional: denies: Chills, (+) Fever Cardiovascular: denies: Shortness of Breath. denies: Chest Pain, Palpitations Respiratory: denies: SOB, SOB on Exertion. denies: Cough, Hemoptysis, Orthopnea , PND Gastrointestinal: denies: Abdominal Pain, Constipation, Diarrhea, Melena, Nausea , Rectal Bleeding, Vomiting Musculoskeletal: denies: Back Pain, Joint Pain Neurological: reports: Weakness. denies: Dizziness, Headache, Seizure, Syncope Labs: CBC, BMP 09/29/17 05:00 09/29/17 06:00 INR, PTT INR 1.14 (0.82-1.09) 09/25/17 10:38 Problem List - Problems (1) FROYLAN (acute kidney injury) Code(s): N17.9 - ACUTE KIDNEY FAILURE, UNSPECIFIED (2) Bacteremia due to Gram-positive bacteria Code(s): R78.81 - BACTEREMIA (3) ESRD (end stage renal disease) Code(s): N18.6 - END STAGE RENAL DISEASE (4) Peripheral vascular disease due to secondary diabetes Code(s): E13.51 - OTH DIABETES W DIABETIC PERIPHERAL ANGIOPATHY W/O GANGRENE (5) Sepsis Code(s): A41.9 - SEPSIS, UNSPECIFIED ORGANISM Qualifiers: Sepsis type: methicillin susceptible Staphylococcus aureus Qualified Code(s ): A41.01 - Sepsis due to Methicillin susceptible Staphylococcus aureus (6) Diabetes mellitus, insulin dependent (IDDM), controlled Code(s): E11.9 - TYPE 2 DIABETES MELLITUS WITHOUT COMPLICATIONS; Z79.4 - MCFP (CURRENT) USE OF INSULIN (7) Acute on chronic diastolic heart failure Code(s): I50.33 - ACUTE ON CHRONIC DIASTOLIC (CONGESTIVE) HEART FAILURE (8) Acute renal failure on dialysis Code(s): N17.9 - ACUTE KIDNEY FAILURE, UNSPECIFIED; Z99.2 - DEPENDENCE ON RENAL DIALYSIS (9) Amputation, below knee, unilateral, traumatic Code(s): S88.119A - COMPLETE TRAUM AMP AT LEV BETW KN & ANKL, UNSP LOW LEG, INIT (10) Hypoglycemia Code(s): E16.2 - HYPOGLYCEMIA, UNSPECIFIED (11) Anemia Code(s): D64.9 - ANEMIA, UNSPECIFIED Qualifiers: Anemia type: due to chronic kidney disease (12) Diabetes mellitus Code(s): E11.9 - TYPE 2 DIABETES MELLITUS WITHOUT COMPLICATIONS Qualifiers: Diabetes mellitus type: type 2 Diabetes mellitus usp insulin use: without usp use Diabetes mellitus complication status: without complication Qualified Code(s): E11.9 - Type 2 diabetes mellitus without complications (13) HTN (hypertension) Code(s): I10 - ESSENTIAL (PRIMARY) HYPERTENSION Qualifiers: Hypertension type: essential hypertension Qualified Code(s): I10 - Essential (primary) hypertension Assessment/Plan 1. MSSA bacteremia suspect line sepsis from indwelling dialysis catheter - catheter removed - remains febrile due to sepsis 2. ESRD on HD, suspected diabetic nephropathy with hyperkalemia and hyponatremia 3. 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 Type 2 DM 5. HTN/HCVD 6. PAD 7. Anemia of chronic kidney disease 8. Bacteruria 9. Right IJ thrombus probably catheter related 10. PAD s/p left BKA PLAN: 1. Antibiotic course per ID, observe for clearance post catheter removal. Consider CHAKA tomorrow in view of persistent bacteremia and fever 2. HD via left femoral groin line 3. Right IJ thrombus needs to be addressed. Vascular surgery follow up to see whether he would need to be initiated on anticoagulation 4. Cardiac medication if BP permits. Continue Lopressor as tolerated Guarded. Patient seen, examined, chart reviewed for 35 min Bay Diallo MD
[2017-09-29] MEDS ORDERED: PT OWN MED DRAWER 7, Y5N ONE (09:37)
--- NOTE | 2017-09-29 09:38 | PN ---
Progress Note (short form) - Note Progress Note: Renal Follow up for ESRD on HD Pt seen and examined in the ICU awake and alert complains of right sided neck discomfort going up to back of the head has some upper back pain as well Vital Signs Temperature 101.4 F H 09/29/17 08:00 Pulse Rate 104 H 09/29/17 08:00 Respiratory Rate 20 09/29/17 08:00 Blood Pressure 132/81 09/29/17 06:00 O2 Sat by Pulse Oximetry (%) 98 09/28/17 20:40 Intake & Output 09/26/17 09/27/17 09/28/17 09/29/17 23:59 23:59 23:59 23:59 Intake Total 540 305 340 50 Output Total 100 Balance 440 305 340 50 Weight 80.739 kg 79.435 kg 78.9 kg NAD awake and alert RRR CTA soft NT/ND no LE edema CBC, BMP 09/29/17 05:00 09/29/17 06:00 Current Medications Acetaminophen (Tylenol -) 650 mg PO Q6H PRN PRN Reason: PAIN LEVEL 7 - 10 Last Admin: 09/29/17 06:27 Dose: 650 mg Albuterol/Ipratropium (Duoneb -) 1 amp NEB RQID [facility] Last Admin: 09/28/17 21:00 Dose: 1 amp Chlorhexidine Gluconate (Hibiclens For Decolonization -) 1 applic TP HS [facility] Last Admin: 09/28/17 21:33 Dose: 1 applic Dextrose (D50w (Vial) -) 25 gm IVPUSH DAILY PRN PRN Reason: HYPOGLYCEMIA Doxazosin Mesylate (Cardura -) 4 mg PO DAILY [facility] Gabapentin (Neurontin -) 100 mg PO BID [facility] Last Admin: 09/28/17 21:21 Dose: 100 mg Heparin Sodium (Porcine) (Heparin -) 5,000 unit SQ TID [facility] Last Admin: 09/29/17 06:29 Dose: 5,000 unit Vancomycin HCl 1,000 mg/ (Dextrose) 250 mls @ 166.667 mls/hr IVPB ONCE ONE; Protocol Stop: 09/28/17 20:57 Piperacillin Sod/Tazobactam (Sod 2.25 gm/ Dextrose) 50 mls @ 100 mls/hr IVPB Q8H-IV [facility]; Protocol Last Admin: 09/29/17 02:12 Dose: 100 mls/hr Insulin Aspart (Novolog Vial Sliding Scale -) 1 vial SQ ACHS [facility]; Protocol Last Admin: 09/29/17 06:29 Dose: Not Given Insulin Detemir (Levemir Vial) 10 units SQ BID@1000,1700 [facility] Metoprolol Tartrate (Lopressor -) 50 mg PO BID [facility] Last Admin: 09/28/17 21:17 Dose: Not Given Mupirocin (Bactroban Ointment (For Decolonization) -) 1 applic NS BID [facility] Stop: 10/03/17 21:59 Last Admin: 09/28/17 21:22 Dose: 1 applic Oxycodone HCl (Roxicodone -) 5 mg PO Q4H PRN PRN Reason: PAIN LEVEL 4 - 6 Oxycodone HCl (Roxicodone -) 10 mg PO Q4H PRN PRN Reason: PAIN LEVEL 7 - 10 Last Admin: 09/28/17 21:39 Dose: 10 mg Sevelamer Carbonate (Renvela -) 1,600 mg PO TIDCM [facility] Last Admin: 09/29/17 08:19 Dose: 1,600 mg Trazodone HCl (Desyrel -) 300 mg PO HS [facility] Last Admin: 09/28/17 21:33 Dose: 300 mg 62 year old AA gentleman with PMhx of ESRD on HD (TTS) secondary to suspected diabetic nephropathy, DM, Hypertension, PVD who presented outpatient blood cultures that were positive for gram positive Cocci. #ESRD on HD #Hyperkalemia #Hyponatremia #Gram + bacteremia/Sepsis #Anemia #Pericardial effusion no acute indication for dialysis today will check labs in AM and determine need for dialysis continue Vanco/Dapto as per ID pt may need more imaging of brain/neck if discomfort continues vascular follow up Miguel Jansen DO
[2017-09-29] MEDS: DOXAZOSIN MESYLATE 4 MG TABLET PO SCH (09:41)
[2017-09-29] MEDS: GABAPENTIN 100 MG CAPSULE (FP) PO SCH ×2 (09:41→21:28)
[2017-09-29] MEDS: METOPROLOL TARTRATE 50 MG TABLET (FP) PO SCH ×2 (09:41→21:28)
[2017-09-29] MEDS: INSULIN (LEVEMIR) 100 UNITS/ML UNITS SQ SCH ×2 (09:43→17:52)
[2017-09-29] MEDS: MUPIROCIN 2% TOPICAL OINTMENT FOR DECOLONIZATION NS SCH ×2 (11:00→21:29)
--- NOTE | 2017-09-29 11:27 | PN ---
Progress Note, Physician History of Present Illness: Pt in the ICU. Much more alert, comfortable, no rigors noted. Still with Rt neck pain, febrile. No other specific complaints. - Current Medication List Current Medications: Active Medications Acetaminophen (Tylenol -) 650 mg PO Q6H PRN PRN Reason: PAIN LEVEL 7 - 10 Last Admin: 09/29/17 06:27 Dose: 650 mg Albuterol/Ipratropium (Duoneb -) 1 amp NEB RQID [facility] Last Admin: 09/29/17 08:30 Dose: Not Given Chlorhexidine Gluconate (Hibiclens For Decolonization -) 1 applic TP HS [facility] Last Admin: 09/28/17 21:33 Dose: 1 applic Dextrose (D50w (Vial) -) 25 gm IVPUSH DAILY PRN PRN Reason: HYPOGLYCEMIA Doxazosin Mesylate (Cardura -) 4 mg PO DAILY [facility] Last Admin: 09/29/17 09:41 Dose: 4 mg Gabapentin (Neurontin -) 100 mg PO BID [facility] Last Admin: 09/29/17 09:41 Dose: 100 mg Heparin Sodium (Porcine) (Heparin -) 5,000 unit SQ TID [facility] Last Admin: 09/29/17 06:29 Dose: 5,000 unit Vancomycin HCl 1,000 mg/ (Dextrose) 250 mls @ 166.667 mls/hr IVPB ONCE ONE; Protocol Stop: 09/28/17 20:57 Piperacillin Sod/Tazobactam (Sod 2.25 gm/ Dextrose) 50 mls @ 100 mls/hr IVPB Q8H-IV [facility]; Protocol Last Admin: 09/29/17 09:41 Dose: 100 mls/hr Insulin Aspart (Novolog Vial Sliding Scale -) 1 vial SQ ACHS [facility]; Protocol Last Admin: 09/29/17 06:29 Dose: Not Given Insulin Detemir (Levemir Vial) 10 units SQ BID@1000,1700 [facility] Last Admin: 09/29/17 09:43 Dose: 10 units Metoprolol Tartrate (Lopressor -) 50 mg PO BID [facility] Last Admin: 09/29/17 09:41 Dose: 50 mg Mupirocin (Bactroban Ointment (For Decolonization) -) 1 applic NS BID [facility] Stop: 10/03/17 21:59 Last Admin: 09/28/17 21:22 Dose: 1 applic Oxycodone HCl (Roxicodone -) 5 mg PO Q4H PRN PRN Reason: PAIN LEVEL 4 - 6 Oxycodone HCl (Roxicodone -) 10 mg PO Q4H PRN PRN Reason: PAIN LEVEL 7 - 10 Last Admin: 09/28/17 21:39 Dose: 10 mg Sevelamer Carbonate (Renvela -) 1,600 mg PO TIDCM [facility] Last Admin: 09/29/17 08:19 Dose: 1,600 mg Trazodone HCl (Desyrel -) 300 mg PO HS [facility] Last Admin: 09/28/17 21:33 Dose: 300 mg - Objective Vital Signs: Vital Signs Temperature 101.4 F H 09/29/17 08:00 Pulse Rate 104 H 09/29/17 08:00 Respiratory Rate 20 09/29/17 08:00 Blood Pressure 132/81 09/29/17 06:00 O2 Sat by Pulse Oximetry (%) 98 09/28/17 20:40 Constitutional: Yes: No Distress HENT: Yes: Other (Rt neck mild swelling, tenderness) Cardiovascular: Yes: Tachycardia Respiratory: Yes: Regular Gastrointestinal: Yes: Normal Bowel Sounds, Soft Extremities: Yes: WNL Integumentary: Yes: WNL Neurological: Yes: Alert, Oriented Labs: CBC, BMP 09/29/17 05:00 09/29/17 06:00 INR, PTT INR 1.14 (0.82-1.09) 09/25/17 10:38 Microbiology 09/28/17 06:15 Blood - Peripheral Venous Blood Culture - Preliminary Pending Organism 09/28/17 06:00 Blood - Peripheral Venous Blood Culture - Preliminary Pending Organism 09/26/17 12:10 Sputum - Expectorated Gram Stain - Final 09/26/17 12:10 Sputum - Expectorated Sputum Culture - Final NORMAL RESPIRATORY SHERIE 09/26/17 17:35 Blood - Peripheral Venous Blood Culture - Final Presumptive Mrsa (Pbp2a Pos) 09/26/17 17:35 Blood - Peripheral Venous Blood Culture - Final Presumptive Mrsa (Pbp2a Pos) 09/25/17 10:50 Wound Gram Stain - Final 09/25/17 10:50 Wound Wound Culture - Preliminary Mr S Aureus 09/24/17 11:24 Blood - Peripheral Venous Blood Culture - Final Staphylococcus Latex Coag Pos 09/24/17 11:24 Blood - Peripheral Venous Blood Culture - Final S Aureus 09/24/17 16:10 Urine - Urine Clean Catch Urine Culture - Final Klebsiella Pneumoniae Klebsiella Pneumoniae#2 CPK: 976 Problem List - Problems (1) Bacteremia due to Gram-positive bacteria Code(s): R78.81 - BACTEREMIA (2) Peripheral vascular disease due to secondary diabetes Code(s): E13.51 - OTH DIABETES W DIABETIC PERIPHERAL ANGIOPATHY W/O GANGRENE (3) Diabetes mellitus, insulin dependent (IDDM), controlled Code(s): E11.9 - TYPE 2 DIABETES MELLITUS WITHOUT COMPLICATIONS; Z79.4 - CHAMBER WALKER (CURRENT) USE OF INSULIN (4) HTN (hypertension) Code(s): I10 - ESSENTIAL (PRIMARY) HYPERTENSION Qualifiers: Hypertension type: essential hypertension Qualified Code(s): I10 - Essential (primary) hypertension Assessment/Plan Pt with hypotension, high fevers/rigors yesterday and transferred to ICU Persistent MRSA Bacteremia s/p permcath removal Sepsis Rt IJ thrombus ESRD on HD Klebsiella UTI PVD s/p Lt BKA DM -- normotensive, remains febrile with increasing wbc, cpk elevated -- latest blood cultures still + growth -- given dose of Daptomycin IV yesterday, continue Zosyn -- continue daily blood cultures, repeat cbc, Vancomycin trough tomorrow -- recommend CHAKA -- Vascular f/u for thrombus -- Nephrology following monitor closely d/w critical care cc time: 40 min
--- NOTE | 2017-09-29 11:42 | PN ---
Physical Exam: SUBJECTIVE: Patient seen and examined OBJECTIVE: Awake and alert, neck pain still persists In ICU since 09/28 when vitals became unstable and became hypothermic Blood sugars are fluctuating No anticoagulation needed per vascular surgery,discussed with cardiology. Patient will likely need CHAKA. Vital Signs Period Temp Pulse Resp BP Sys/Gutirerez Pulse Ox Last 24 Hr 98.4 F-103.9 F 88-134 16-22 91-132/53-92 98 GENERAL: The patient is awake, alert, and fully oriented, in no acute distress. HEAD: Normal with no signs of trauma. EYES: PERRL, extraocular movements intact, sclera anicteric, conjunctiva clear. No ptosis. ENT: Ears normal, nares patent, oropharynx clear without exudates, moist mucous membranes. NECK: Trachea midline, full range of motion, supple, right neck pain LUNGS: scattered rhonchi bilaterally HEART: Regular rate and rhythm, S1, S2 without murmur, rub or gallop. ABDOMEN: Soft, nontender, nondistended, normoactive bowel sounds, no guarding, no rebound, no hepatosplenomegaly, no masses. EXTREMITIES: Left BKA, skin intact, NEUROLOGICAL: Normal speech, gait not observed. PSYCH: Normal mood, normal affect. SKIN: Warm, dry, normal turgor, no rashes or lesions noted Laboratory Results - last 24 hr 09/26/17 09/28/17 09/28/17 22:30 11:41 16:41 WBC RBC Hgb Hct MCV MCH MCHC RDW Plt Count MPV Neutrophils % Lymphocytes % Monocytes % Eosinophils % Basophils % Nucleated RBC % Sodium Potassium Chloride Carbon Dioxide Anion Gap BUN Creatinine Creat Clearance w eGFR POC Glucometer 300 492 Random Glucose Calcium Phosphorus Magnesium Total Bilirubin AST ALT Alkaline Phosphatase Creatine Kinase Total Protein Albumin Hep A IgM Ab Confirm Negative Hepatitis A Ab Total Positive H Hep Bs Antigen Negative Hep Bs Antibody Reactive Hep B Core Total Ab Positive H 09/28/17 09/29/17 09/29/17 21:50 05:00 06:00 WBC 16.6 H RBC 2.99 L Hgb 8.6 L Hct 26.6 L MCV 89.1 MCH 28.8 MCHC 32.3 RDW 15.9 Plt Count 318 MPV 10.1 Neutrophils % 83.9 H Lymphocytes % 4.4 L D Monocytes % 9.9 Eosinophils % 1.3 D Basophils % 0.5 Nucleated RBC % 0 Sodium 132 L Potassium 4.1 D Chloride 92 L Carbon Dioxide 29 Anion Gap 11 BUN 43 H D Creatinine 6.3 H D Creat Clearance w eGFR 9.05 POC Glucometer Random Glucose 408 H* D 47 L* D Calcium 7.4 L Phosphorus 4.3 Magnesium 1.7 L Total Bilirubin 0.4 AST 55 H D ALT 27 D Alkaline Phosphatase 105 D Creatine Kinase 976 H Total Protein 5.8 L Albumin 2.0 L Hep A IgM Ab Confirm Hepatitis A Ab Total Hep Bs Antigen Hep Bs Antibody Hep B Core Total Ab Active Medications Generic Name Dose Route Start Last Admin Trade Name Freq PRN Reason Stop Dose Admin Acetaminophen 650 mg 09/28/17 19:28 09/29/17 06:27 Tylenol - PO 650 mg Q6H PRN Administration PAIN LEVEL 7 - 10 Albuterol/Ipratropium 1 amp 09/28/17 20:00 09/29/17 08:30 Duoneb - NEB Not Given RQID [facility] Chlorhexidine Gluconate 1 applic 09/28/17 22:00 09/28/17 21:33 Hibiclens For Decolonization - TP 1 applic HS [facility] Administration Dextrose 25 gm 09/28/17 20:31 D50w (Vial) - IVPUSH DAILY PRN HYPOGLYCEMIA Doxazosin Mesylate 4 mg 09/29/17 10:00 09/29/17 09:41 Cardura - PO 4 mg DAILY [facility] Administration Gabapentin 100 mg 09/28/17 22:00 09/29/17 09:41 Neurontin - PO 100 mg BID [facility] Administration Heparin Sodium (Porcine) 5,000 unit 09/28/17 22:00 09/29/17 06:29 Heparin - SQ 5,000 unit TID [facility] Administration Vancomycin HCl 1,000 mg/ 250 mls @ 166.667 mls/hr 09/28/17 19:28 Dextrose IVPB 09/28/17 20:57 ONCE ONE Protocol Piperacillin Sod/Tazobactam 50 mls @ 100 mls/hr 09/29/17 02:00 09/29/17 09:41 Sod 2.25 gm/ Dextrose IVPB 100 mls/hr Q8H-IV [facility] Administration Protocol Insulin Aspart 1 vial 09/28/17 22:00 09/29/17 06:29 Novolog Vial Sliding Scale - SQ Not Given ACHS [facility] Protocol Insulin Detemir 10 units 09/29/17 10:00 09/29/17 09:43 Levemir Vial SQ 10 units BID@1000,1700 [facility] Administration Metoprolol Tartrate 50 mg 09/28/17 22:00 09/29/17 09:41 Lopressor - PO 50 mg BID [facility] Administration Mupirocin 1 applic 09/28/17 22:00 09/28/17 21:22 Bactroban Ointment (For Decolonization) - NS 10/03/17 21:59 1 applic BID [facility] Administration Oxycodone HCl 5 mg 09/28/17 21:28 Roxicodone - PO Q4H PRN PAIN LEVEL 4 - 6 Oxycodone HCl 10 mg 09/28/17 21:28 09/28/17 21:39 Roxicodone - PO 10 mg Q4H PRN Administration PAIN LEVEL 7 - 10 Sevelamer Carbonate 1,600 mg 09/29/17 08:00 09/29/17 08:19 Renvela - PO 1,600 mg TIDCM [facility] Administration Trazodone HCl 300 mg 09/28/17 22:00 09/28/17 21:33 Desyrel - PO 300 mg HS [facility] Administration ASSESSMENT/PLAN: Patient is a 61 year old male with a significant past medical history of diabetes mellitus, hypertension, ESRD (Tues, Thurs, Sat), osteoarthritis and left below the knee amputation. He presents to the ER after being found to have + blood cultures from his last dialysis session 1 week ago from his right permacath site. His permacath has been removed and repeat blood cultures here show presumptive MRSA and his urine now with klebsiella. He has been started on broad on Vanco and Zosyn. His CT of nect shows a possible septic vs aspectic thrombus. He as been transferred to the ICU on 09/28/17 when he became hypoglycemic, hypothermic and hypotensive. Imaging: CT/Soft Tissue Neck CT with contrast 09/27/2017: 1. septic vs aseptic thrombus for right IJ to sigmoid sinus, no abscess in neck seen. Findings discussed via telephone with Dr. Saba, radiology ID: Sepsis Bacteremia/Urosepsis. Patient unstable yesterday and sent to ICU, still with fevers but holding his blood pressure currently. Repeat blood cultures pending organism. UC + kleb in urine. On Vanco (09/24> ) Zosyn (09/27 >) and Daptomycin (one dose given on 09/28) + blood cultures from right permacath with presumptive MRSA. UC also shows kleb in urine. Febrile since admission, rigors worse yesterday with unstable vitals. transferred to ICU but now holding his BP, other vitals stable, but still febrile. No rigors today. Will need CHAKA as per cardiology. Vascular: Right thrombus s/p removal of right IJ may be septic vs. aspectic. Vascular on board, no anticoagulation needed at this time per vascular. Vascular following. Apolinar MRI and Neck MRA ordered but patient became too unstable yesterday to tolerate imaging. Renal: ESRD. Dialysis tomorrow Endocrine Diabetes. On SS and Levemir. Liable blood sugars noted. CV: Hypertension, controlled. continue home medications. Monitor in the setting of sepsis. Rule out endocarditis, CHAKA per cardiology. All repeat blood cultures positive. F.E.N. Fluids: none needed, fluid restriction 1.2 L Electrolyes: monitor Nutrition: renal diet Prophy: DVT: Heparin TID GI: deferred Visit type - Emergency Visit Emergency Visit: Yes ED Registration Date: 09/24/17 Care time: The patient presented to the Emergency Department on the above date and was hospitalized for further evaluation of their emergent condition. - New Patient This patient is new to me today: No - Critical Care Critical Care patient: Yes Total Critical Care Time (in minutes): 60 Critical Care Statement: The care of this patient involved high complexity decision making to prevent further life threatening deterioration of the patient 's condition and/or to evaluate & treat vital organ system(s) failure or risk of failure.
[2017-09-29] MEDS: oxyCODONE HCL 5 MG TABLET PO PRN ×2 (13:41→21:28)
[2017-09-29] MEDS: CHLORHEXIDINE GLUCONATE 4% CLEANSER FOR DECOLONIZATION TP SCH (21:28)
[2017-09-29] MEDS: traZODone HCL 100 MG TABLET (FP) PO SCH (21:29)
[2017-09-30] MEDS ORDERED: PIPERACILLIN/TAZOBACTAM 2.25 GM VIAL IVPB ONE ×4 (01:17→23:29)
[2017-09-30] MEDS ORDERED: DEXTROSE 5%-WATER - 50 ML IVPB ONE ×4 (01:17→23:30)
[2017-09-30] MEDS: PIPERACILLIN/TAZOB 2.25 GM 2.25 GM in DEXTROSE 5%-WATER - 50 ML IVPB SCH ×3 (01:20→17:10)
[2017-09-30] MEDS ORDERED: ACETAMINOPHEN 325 MG TABLET (FP) PO ONE (01:27)
[2017-09-30] MEDS: HEPARIN NA (PORCINE) 5,000 UNITS/ML 1ML VIAL SQ SCH ×3 (06:19→21:29)
[2017-09-30] MEDS: INSULIN SLIDING SCALE (NOVOLOG) 1 VIAL SQ SCH ×4 (06:38→21:33)
[2017-09-30 07:04] LABS: ALBUMIN 1.8 g/dl (3.4-5.0); ANION GAP 10 (8-16); BLOOD UREA NITROGEN 64 mg/dL (7-18); CALCIUM 7.4 mg/dL (8.5-10.1); CHLORIDE 94 mmol/L (98-107); CO2 28 mmol/L (21-32); MAGNESIUM 2.1 mg/dL (1.8-2.4); POTASSIUM 3.8 mmol/L (3.5-5.1); SODIUM 132 mmol/L (136-145)
[2017-09-30 07:10] LABS: ALK PHOS 114 U/L (45-117); BILIRUBIN,TOTAL 0.5 mg/dL (0.2-1.0); PHOSPHOROUS 4.1 mg/dL (2.5-4.9); SGOT/AST 51 U/L (15-37); SGPT/ALT 29 U/L (12-78); TOT PROT 5.2 g/dl (6.4-8.2)
[2017-09-30 07:27] LABS: BASO % 0.5 % (0-2.0); EOS % 1.7 % (0-4.5); HEMATOCRIT 23.8 % (35.4-49); HEMOGLOBIN 7.7 GM/dL (11.7-16.9); LYMPH % 7.6 % (8-40); MCHC 32.3 g/dl (32.0-35.9); MEAN PLT VOLUME 9.8 fl (7.5-11.1); MONO % 9.4 % (3.8-10.2); NEUT % 80.8 % (42.8-82.8); PLATELET COUNT 275 K/MM3 (134-434); RBC 2.65 M/mm3 (4.00-5.60); WHITE BLOOD COUNT 17.2 K/mm3 (4.0-10.0)
[2017-09-30 07:32] LABS: GLUCOSE,RANDOM 45 mg/dL (74-106)
[2017-09-30] MEDS ORDERED: DEXTROSE 50%-WATER 25 GM/50 ML DISP.SYRIN ONE (08:26)
[2017-09-30] MEDS: ALBUTEROL SO4 2.5/IPRATROPIUM 0.5 INH SOL 3 ML VIAL.NEB. NEB SCH ×4 (08:59→21:47)
[2017-09-30] MEDS: SEVELAMER CARBONATE 800 MG TAB (FP) PO SCH ×3 (10:43→17:10)
--- NOTE | 2017-09-30 10:46 | PN ---
Progress Note (short form) - Note Progress Note: Renal Follow up for ESRD on HD Pt seen and examined in the ICU awake and alert complains of diffuse body pain remains febrile last dialysis was Saturday denies any sob, chest pain, abd pain, N/V/D NPO for possible CHAKA Vital Signs Temperature 99.2 F 09/30/17 10:00 Pulse Rate 94 H 09/30/17 10:00 Respiratory Rate 16 09/30/17 10:00 Blood Pressure 126/50 09/30/17 10:00 O2 Sat by Pulse Oximetry (%) 98 09/29/17 20:38 Intake & Output 09/27/17 09/28/17 09/29/17 09/30/17 23:59 23:59 23:59 23:59 Intake Total 305 340 50 50 Balance 305 340 50 50 Weight 79.435 kg 78.9 kg 80.3 kg NAD awake and alert RRR CTA soft NT/ND no LE edema CBC, BMP 09/30/17 05:20 09/30/17 05:20 Current Medications Acetaminophen (Tylenol -) 650 mg PO Q6H PRN PRN Reason: PAIN LEVEL 7 - 10 Last Admin: 09/29/17 21:27 Dose: 650 mg Albuterol/Ipratropium (Duoneb -) 1 amp NEB RQID [facility] Last Admin: 09/30/17 08:59 Dose: 1 amp Chlorhexidine Gluconate (Hibiclens For Decolonization -) 1 applic TP HS [facility] Last Admin: 09/29/17 21:28 Dose: 1 applic Doxazosin Mesylate (Cardura -) 4 mg PO DAILY [facility] Last Admin: 09/29/17 09:41 Dose: 4 mg Gabapentin (Neurontin -) 100 mg PO BID [facility] Last Admin: 09/29/17 21:28 Dose: 100 mg Heparin Sodium (Porcine) (Heparin -) 5,000 unit SQ TID [facility] Last Admin: 09/30/17 06:19 Dose: 5,000 unit Vancomycin HCl 1,000 mg/ (Dextrose) 250 mls @ 166.667 mls/hr IVPB ONCE ONE; Protocol Stop: 09/28/17 20:57 Piperacillin Sod/Tazobactam (Sod 2.25 gm/ Dextrose) 50 mls @ 100 mls/hr IVPB Q8H-IV [facility]; Protocol Last Admin: 09/30/17 01:20 Dose: 100 mls/hr Insulin Aspart (Novolog Vial Sliding Scale -) 1 vial SQ ACHS [facility]; Protocol Last Admin: 09/30/17 06:38 Dose: Not Given Insulin Detemir (Levemir Vial) 10 units SQ BID@1000,1700 [facility] Last Admin: 09/29/17 17:52 Dose: 10 units Metoprolol Tartrate (Lopressor -) 50 mg PO BID [facility] Last Admin: 09/29/17 21:28 Dose: 50 mg Mupirocin (Bactroban Ointment (For Decolonization) -) 1 applic NS BID [facility] Stop: 10/03/17 21:59 Last Admin: 09/29/17 21:29 Dose: 1 applic Oxycodone HCl (Roxicodone -) 5 mg PO Q4H PRN PRN Reason: PAIN LEVEL 4 - 6 Oxycodone HCl (Roxicodone -) 10 mg PO Q4H PRN PRN Reason: PAIN LEVEL 7 - 10 Last Admin: 09/29/17 21:28 Dose: 10 mg Sevelamer Carbonate (Renvela -) 1,600 mg PO TIDCM [facility] Last Admin: 09/29/17 17:12 Dose: 1,600 mg Trazodone HCl (Desyrel -) 300 mg PO HS [facility] Last Admin: 09/29/17 21:29 Dose: 300 mg 62 year old AA gentleman with PMhx of ESRD on HD (TTS) secondary to suspected diabetic nephropathy, DM, Hypertension, PVD who presented outpatient blood cultures that were positive for gram positive Cocci. 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 Tx options for CHAKA today trend H/H, will give ADRIAN with HD no acute indication for transfusion Miguel Jansen DO
--- NOTE | 2017-09-30 10:49 | PN ---
Progress Note, Physician Chief Complaint: Events noted Not in distress History of Present Illness: Patient was seen and examined. Awake and alert. Chart was reviewed Denies chest pain, SOB or palpitations. Awaiting timing for CHAKA - Current Medication List Current Medications: Active Medications Acetaminophen (Tylenol -) 650 mg PO Q6H PRN PRN Reason: PAIN LEVEL 7 - 10 Last Admin: 09/29/17 21:27 Dose: 650 mg Albuterol/Ipratropium (Duoneb -) 1 amp NEB RQID [facility] Last Admin: 09/30/17 08:59 Dose: 1 amp Chlorhexidine Gluconate (Hibiclens For Decolonization -) 1 applic TP HS [facility] Last Admin: 09/29/17 21:28 Dose: 1 applic Doxazosin Mesylate (Cardura -) 4 mg PO DAILY [facility] Last Admin: 09/29/17 09:41 Dose: 4 mg Gabapentin (Neurontin -) 100 mg PO BID [facility] Last Admin: 09/29/17 21:28 Dose: 100 mg Heparin Sodium (Porcine) (Heparin -) 5,000 unit SQ TID [facility] Last Admin: 09/30/17 06:19 Dose: 5,000 unit Vancomycin HCl 1,000 mg/ (Dextrose) 250 mls @ 166.667 mls/hr IVPB ONCE ONE; Protocol Stop: 09/28/17 20:57 Piperacillin Sod/Tazobactam (Sod 2.25 gm/ Dextrose) 50 mls @ 100 mls/hr IVPB Q8H-IV [facility]; Protocol Last Admin: 09/30/17 01:20 Dose: 100 mls/hr Insulin Aspart (Novolog Vial Sliding Scale -) 1 vial SQ ACHS [facility]; Protocol Last Admin: 09/30/17 06:38 Dose: Not Given Insulin Detemir (Levemir Vial) 10 units SQ BID@1000,1700 [facility] Last Admin: 09/29/17 17:52 Dose: 10 units Metoprolol Tartrate (Lopressor -) 50 mg PO BID [facility] Last Admin: 09/29/17 21:28 Dose: 50 mg Mupirocin (Bactroban Ointment (For Decolonization) -) 1 applic NS BID [facility] Stop: 10/03/17 21:59 Last Admin: 09/29/17 21:29 Dose: 1 applic Oxycodone HCl (Roxicodone -) 5 mg PO Q4H PRN PRN Reason: PAIN LEVEL 4 - 6 Oxycodone HCl (Roxicodone -) 10 mg PO Q4H PRN PRN Reason: PAIN LEVEL 7 - 10 Last Admin: 09/29/17 21:28 Dose: 10 mg Sevelamer Carbonate (Renvela -) 1,600 mg PO TIDCM [facility] Last Admin: 09/29/17 17:12 Dose: 1,600 mg Trazodone HCl (Desyrel -) 300 mg PO HS [facility] Last Admin: 09/29/17 21:29 Dose: 300 mg - Objective Vital Signs: Vital Signs Temperature 99.2 F 09/30/17 10:00 Pulse Rate 94 H 09/30/17 10:00 Respiratory Rate 16 09/30/17 10:00 Blood Pressure 126/50 09/30/17 10:00 O2 Sat by Pulse Oximetry (%) 98 09/29/17 20:38 HENT: Yes: Atraumatic Neck: Yes: Supple Cardiovascular: Yes: Regular Rate and Rhythm, S1, S2 Respiratory: Yes: Diminished Gastrointestinal: Yes: Normal Bowel Sounds, Soft. No: Tenderness Extremities: Yes: Amputation Edema: No Additional Findings/Remarks: - Review of Systems Constitutional: denies: Chills, (+) Fever Cardiovascular: denies: Shortness of Breath. denies: Chest Pain, Palpitations Respiratory: denies: SOB, SOB on Exertion. denies: Cough, Hemoptysis, Orthopnea , PND Gastrointestinal: denies: Abdominal Pain, Constipation, Diarrhea, Melena, Nausea , Rectal Bleeding, Vomiting Musculoskeletal: denies: Back Pain, Joint Pain Neurological: reports: Weakness. denies: Dizziness, Headache, Seizure, Syncope Labs: CBC, BMP 09/30/17 05:20 09/30/17 05:20 Problem List - Problems (1) FROYLAN (acute kidney injury) Code(s): N17.9 - ACUTE KIDNEY FAILURE, UNSPECIFIED (2) Bacteremia due to Gram-positive bacteria Code(s): R78.81 - BACTEREMIA (3) ESRD (end stage renal disease) Code(s): N18.6 - END STAGE RENAL DISEASE (4) Peripheral vascular disease due to secondary diabetes Code(s): E13.51 - OTH DIABETES W DIABETIC PERIPHERAL ANGIOPATHY W/O GANGRENE (5) Sepsis Code(s): A41.9 - SEPSIS, UNSPECIFIED ORGANISM Qualifiers: Qualified Code(s): A41.01 - Sepsis due to Methicillin susceptible Staphylococcus aureus (6) Diabetes mellitus, insulin dependent (IDDM), controlled Code(s): E11.9 - TYPE 2 DIABETES MELLITUS WITHOUT COMPLICATIONS; Z79.4 - ASSISTED (CURRENT) USE OF INSULIN (7) Acute on chronic diastolic heart failure Code(s): I50.33 - ACUTE ON CHRONIC DIASTOLIC (CONGESTIVE) HEART FAILURE (8) Acute renal failure on dialysis Code(s): N17.9 - ACUTE KIDNEY FAILURE, UNSPECIFIED; Z99.2 - DEPENDENCE ON RENAL DIALYSIS (9) Amputation, below knee, unilateral, traumatic Code(s): S88.119A - COMPLETE TRAUM AMP AT LEV BETW KN & ANKL, UNSP LOW LEG, INIT (10) Hypoglycemia Code(s): E16.2 - HYPOGLYCEMIA, UNSPECIFIED (11) Anemia Code(s): D64.9 - ANEMIA, UNSPECIFIED (12) Diabetes mellitus Code(s): E11.9 - TYPE 2 DIABETES MELLITUS WITHOUT COMPLICATIONS Qualifiers: Qualified Code(s): E11.9 - Type 2 diabetes mellitus without complications (13) HTN (hypertension) Code(s): I10 - ESSENTIAL (PRIMARY) HYPERTENSION Qualifiers: Qualified Code(s): I10 - Essential (primary) hypertension Assessment/Plan 1. MSSA/MRSA bacteremia suspect line sepsis from indwelling dialysis catheter - catheter removed - intermittently febrile due to sepsis 2. ESRD on HD, suspected diabetic nephropathy with hyperkalemia and hyponatremia 3. 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 Type 2 DM 5. HTN/HCVD 6. PAD 7. Anemia of chronic kidney disease 8. Bacteruria 9. Right IJ thrombus probably catheter related 10. PAD s/p left BKA PLAN: 1. Antibiotic course per ID, observe for clearance post catheter removal. Consider CHAKA today in view of persistent bacteremia and fever. Endo notified for scheduling 2. HD via left femoral groin line 3. Right IJ thrombus needs to be addressed. Spoke with Dr. Daly who feels that anticoagulation is not needed at this time. Further Vascular input to follow 4. Continue Lopressor as tolerated Guarded. Patient seen, examined, chart reviewed for 35 min Bay Diallo MD
[2017-09-30] MEDS: METOPROLOL TARTRATE 50 MG TABLET (FP) PO SCH ×2 (10:50→21:28)
[2017-09-30] MEDS: oxyCODONE HCL 5 MG TABLET PO PRN ×2 (10:50→21:46)
[2017-09-30] MEDS: GABAPENTIN 100 MG CAPSULE (FP) PO SCH ×2 (10:50→21:28)
[2017-09-30] MEDS ORDERED: PT OWN MED DRAWER 7, Y5N ONE (10:56)
[2017-09-30] MEDS: INSULIN (LEVEMIR) 100 UNITS/ML UNITS SQ SCH (11:12)
[2017-09-30 11:19] LABS: PLATELET ESTIMATE NORMAL; TEAR DROP CELLS 1+
--- NOTE | 2017-09-30 12:44 | PN ---
Teaching Attending Note Name of Resident: Chente Bello ATTENDING PHYSICIAN STATEMENT I saw and evaluated the patient. I reviewed the resident's note and discussed the case with the resident. I agree with the resident's findings and plan as documented. SUBJECTIVE: Patient seen and examined in the ICU. Awake and alert. Denies chest pain or SOB. For [facility] Intake & Output 09/27/17 09/28/17 09/29/17 09/30/17 23:59 23:59 23:59 23:59 Intake Total 305 340 50 50 Balance 305 340 50 50 Weight 175 lb 2 oz 173 lb 15.115 oz 177 lb 0.499 oz Last Vital Signs Temp Pulse Resp BP Pulse Ox 99.2 F 94 H 16 126/50 98 09/30/17 10:00 09/30/17 10:00 09/30/17 10:00 09/30/17 10:00 09/30/17 09:00 Active Medications Acetaminophen (Tylenol -) 650 mg PO Q6H PRN PRN Reason: PAIN LEVEL 7 - 10 Last Admin: 09/29/17 21:27 Dose: 650 mg Albuterol/Ipratropium (Duoneb -) 1 amp NEB RQID [facility] Last Admin: 09/30/17 12:22 Dose: 1 amp Chlorhexidine Gluconate (Hibiclens For Decolonization -) 1 applic TP HS [facility] Last Admin: 09/29/17 21:28 Dose: 1 applic Doxazosin Mesylate (Cardura -) 4 mg PO DAILY [facility] Last Admin: 09/29/17 09:41 Dose: 4 mg Gabapentin (Neurontin -) 100 mg PO BID [facility] Last Admin: 09/30/17 10:50 Dose: 100 mg Heparin Sodium (Porcine) (Heparin -) 5,000 unit SQ TID [facility] Last Admin: 09/30/17 06:19 Dose: 5,000 unit Vancomycin HCl 1,000 mg/ (Dextrose) 250 mls @ 166.667 mls/hr IVPB ONCE ONE; Protocol Stop: 09/28/17 20:57 Piperacillin Sod/Tazobactam (Sod 2.25 gm/ Dextrose) 50 mls @ 100 mls/hr IVPB Q8H-IV [facility]; Protocol Last Admin: 09/30/17 10:50 Dose: 100 mls/hr Insulin Aspart (Novolog Vial Sliding Scale -) 1 vial SQ ACHS [facility]; Protocol Last Admin: 09/30/17 06:38 Dose: Not Given Insulin Detemir (Levemir Vial) 10 units SQ DAILY [facility] Metoprolol Tartrate (Lopressor -) 50 mg PO BID [facility] Last Admin: 09/30/17 10:50 Dose: 50 mg Mupirocin (Bactroban Ointment (For Decolonization) -) 1 applic NS BID [facility] Stop: 10/03/17 21:59 Last Admin: 09/29/17 21:29 Dose: 1 applic Oxycodone HCl (Roxicodone -) 5 mg PO Q4H PRN PRN Reason: PAIN LEVEL 4 - 6 Oxycodone HCl (Roxicodone -) 10 mg PO Q4H PRN PRN Reason: PAIN LEVEL 7 - 10 Last Admin: 09/30/17 10:50 Dose: 10 mg Sevelamer Carbonate (Renvela -) 1,600 mg PO TIDCM [facility] Last Admin: 09/30/17 10:43 Dose: Not Given Trazodone HCl (Desyrel -) 300 mg PO HS [facility] Last Admin: 09/29/17 21:29 Dose: 300 mg HENT: Yes: Atraumatic, (-) Pallor Neck: Yes: Supple Cardiovascular: Yes: Regular Rate and Rhythm, S1, S2 Respiratory: Yes: Diminished Gastrointestinal: Yes: Normal Bowel Sounds, Soft. No: Tenderness Extremities: Yes: Amputation Edema: No Laboratory Results - last 24 hr 09/28/17 09/29/17 09/29/17 21:27 06:00 16:51 WBC RBC Hgb Hct MCV MCH MCHC RDW Plt Count MPV Neutrophils % Neutrophils % (Manual) Band Neutrophils % Lymphocytes % Lymphocytes % (Manual) Monocytes % Monocytes % (Manual) Eosinophils % Eosinophils % (Manual) Basophils % Basophils % (Manual) Myelocytes % (Man) Promyelocytes % (Man) Blast Cells % (Manual) Nucleated RBC % Metamyelocytes Hypochromia Platelet Estimate Basophilic Stippling Tear Drop Cells Sodium Potassium Chloride Carbon Dioxide Anion Gap BUN Creatinine Creat Clearance w eGFR POC Glucometer > [phone] Random Glucose Calcium Phosphorus Magnesium Total Bilirubin AST ALT Alkaline Phosphatase Creatine Kinase Index 0.1 CK-MB (CK-2) 1.218 Total Protein Albumin 06/04/18 06/04/18 06/04/18 05:20 05:20 06:19 WBC 17.2 H RBC 2.65 L Hgb 7.7 L D Hct 23.8 L MCV 90.0 MCH 29.0 MCHC 32.3 RDW 16.0 H Plt Count 275 MPV 9.8 Neutrophils % 80.8 Neutrophils % (Manual) 76.0 Band Neutrophils % 2.0 Lymphocytes % 7.6 L D Lymphocytes % (Manual) 12.0 D Monocytes % 9.4 Monocytes % (Manual) 6 Eosinophils % 1.7 Eosinophils % (Manual) 4.0 D Basophils % 0.5 Basophils % (Manual) 0.0 Myelocytes % (Man) 0 Promyelocytes % (Man) 0 Blast Cells % (Manual) 0 Nucleated RBC % 0 Metamyelocytes 0 Hypochromia 2+ Platelet Estimate Normal Basophilic Stippling 1+ Tear Drop Cells 1+ Sodium 132 L Potassium 3.8 Chloride 94 L Carbon Dioxide 28 Anion Gap 10 BUN 64 H D Creatinine 8.0 H* D Creat Clearance w eGFR 6.87 POC Glucometer 82.68592 Random Glucose 45 L* Calcium 7.4 L Phosphorus 4.1 Magnesium 2.1 D Total Bilirubin 0.5 D AST 51 H ALT 29 Alkaline Phosphatase 114 Creatine Kinase Index CK-MB (CK-2) Total Protein 5.2 L Albumin 1.8 L 09/30/17 11:09 WBC RBC Hgb Hct MCV MCH MCHC RDW Plt Count MPV Neutrophils % Neutrophils % (Manual) Band Neutrophils % Lymphocytes % Lymphocytes % (Manual) Monocytes % Monocytes % (Manual) Eosinophils % Eosinophils % (Manual) Basophils % Basophils % (Manual) Myelocytes % (Man) Promyelocytes % (Man) Blast Cells % (Manual) Nucleated RBC % Metamyelocytes Hypochromia Platelet Estimate Basophilic Stippling Tear Drop Cells Sodium Potassium Chloride Carbon Dioxide Anion Gap BUN Creatinine Creat Clearance w eGFR POC Glucometer [phone] Random Glucose Calcium Phosphorus Magnesium Total Bilirubin AST ALT Alkaline Phosphatase Creatine Kinase Index CK-MB (CK-2) Total Protein Albumin Problem List - Problems (1) FROYLAN (acute kidney injury) Code(s): N17.9 - ACUTE KIDNEY FAILURE, UNSPECIFIED (2) Bacteremia due to Gram-positive bacteria Code(s): R78.81 - BACTEREMIA (3) ESRD (end stage renal disease) Code(s): N18.6 - END STAGE RENAL DISEASE (4) Peripheral vascular disease due to secondary diabetes Code(s): E13.51 - OTH DIABETES W DIABETIC PERIPHERAL ANGIOPATHY W/O GANGRENE (5) Sepsis Code(s): A41.9 - SEPSIS, UNSPECIFIED ORGANISM Qualifiers: Qualified Code(s): A41.01 - Sepsis due to Methicillin susceptible Staphylococcus aureus (6) Diabetes mellitus, insulin dependent (IDDM), controlled Code(s): E11.9 - TYPE 2 DIABETES MELLITUS WITHOUT COMPLICATIONS; Z79.4 - ASSISTED (CURRENT) USE OF INSULIN (7) Acute on chronic diastolic heart failure Code(s): I50.33 - ACUTE ON CHRONIC DIASTOLIC (CONGESTIVE) HEART FAILURE (8) Acute renal failure on dialysis Code(s): N17.9 - ACUTE KIDNEY FAILURE, UNSPECIFIED; Z99.2 - DEPENDENCE ON RENAL DIALYSIS (9) Amputation, below knee, unilateral, traumatic Code(s): S88.119A - COMPLETE TRAUM AMP AT LEV BETW KN & ANKL, UNSP LOW LEG, INIT (10) Hypoglycemia Code(s): E16.2 - HYPOGLYCEMIA, UNSPECIFIED (11) Anemia Code(s): D64.9 - ANEMIA, UNSPECIFIED (12) Diabetes mellitus Code(s): E11.9 - TYPE 2 DIABETES MELLITUS WITHOUT COMPLICATIONS Qualifiers: Qualified Code(s): E11.9 - Type 2 diabetes mellitus without complications (13) HTN (hypertension) Code(s): I10 - ESSENTIAL (PRIMARY) HYPERTENSION Qualifiers: Qualified Code(s): I10 - Essential (primary) hypertension Assessment/Plan MSSA/MRSA bacteremia suspect line sepsis from indwelling dialysis catheter Moderate pericardial effusion Right IJ thrombus likely catheter related ABX coverage per ID O2 as needed For [facility] HD via temporary access per Renal VTE prophylaxis For now was recommended no AC for right IJ thrombus per vascular Dr Butt Critical care time spent in reviewing chart, evaluating patient and formulating plan - 36 minutes.
[2017-09-30] MEDS ORDERED: ETOMIDATE 20 MG/10 ML AMPUL IVPUSH ONE (13:15)
[2017-09-30] MEDS ORDERED: PROPOFOL 20 ML ONE (13:15)
[2017-09-30] MEDS ORDERED: LIDOCAINE HCL/PF 2% SDV 5ML VIAL ONE (13:15)
--- NOTE | 2017-09-30 13:16 | PN ---
Physical Exam: SUBJECTIVE: Patient seen and examined. Offers no new complaints. Denies CP, SOB. Overnight: Tmax 101.9. Nasal Cannula OBJECTIVE: Vital Signs Period Temp Pulse Resp BP Sys/Gutierrez Pulse Ox Last 24 Hr 97.3 F-101.9 F 75-101 12-22 88-143/50-82 98-98 GENERAL: In NAD, a/o x 3, appears comfortable EYES: PERRL, extraocular movements intact, sclera anicteric, conjunctiva clear. No ptosis. ENT: oropharynx clear without exudates, DMM NECK: supple. LUNGS: CTA HEART: Regular rate and rhythm, S1, S2 ABDOMEN: Soft, nontender, nondistended, normoactive bowel sounds EXTREMITIES: L BKA, no edema Laboratory Results - last 24 hr 09/28/17 09/29/17 09/30/17 21:27 16:51 05:20 WBC 17.2 H RBC 2.65 L Hgb 7.7 L D Hct 23.8 L MCV 90.0 MCH 29.0 MCHC 32.3 RDW 16.0 H Plt Count 275 MPV 9.8 Neutrophils % 80.8 Neutrophils % (Manual) 76.0 Band Neutrophils % 2.0 Lymphocytes % 7.6 L D Lymphocytes % (Manual) 12.0 D Monocytes % 9.4 Monocytes % (Manual) 6 Eosinophils % 1.7 Eosinophils % (Manual) 4.0 D Basophils % 0.5 Basophils % (Manual) 0.0 Myelocytes % (Man) 0 Promyelocytes % (Man) 0 Blast Cells % (Manual) 0 Nucleated RBC % 0 Metamyelocytes 0 Hypochromia 2+ Platelet Estimate Normal Basophilic Stippling 1+ Tear Drop Cells 1+ Sodium Potassium Chloride Carbon Dioxide Anion Gap BUN Creatinine Creat Clearance w eGFR POC Glucometer > [phone] Random Glucose Calcium Phosphorus Magnesium Total Bilirubin AST ALT Alkaline Phosphatase Total Protein Albumin 09/30/17 09/30/17 09/30/17 05:20 06:19 11:09 WBC RBC Hgb Hct MCV MCH MCHC RDW Plt Count MPV Neutrophils % Neutrophils % (Manual) Band Neutrophils % Lymphocytes % Lymphocytes % (Manual) Monocytes % Monocytes % (Manual) Eosinophils % Eosinophils % (Manual) Basophils % Basophils % (Manual) Myelocytes % (Man) Promyelocytes % (Man) Blast Cells % (Manual) Nucleated RBC % Metamyelocytes Hypochromia Platelet Estimate Basophilic Stippling Tear Drop Cells Sodium 132 L Potassium 3.8 Chloride 94 L Carbon Dioxide 28 Anion Gap 10 BUN 64 H D Creatinine 8.0 H* D Creat Clearance w eGFR 6.87 POC Glucometer 82.29386 303.79774 Random Glucose 45 L* Calcium 7.4 L Phosphorus 4.1 Magnesium 2.1 D Total Bilirubin 0.5 D AST 51 H ALT 29 Alkaline Phosphatase 114 Total Protein 5.2 L Albumin 1.8 L Active Medications Generic Name Dose Route Start Last Admin Trade Name Freq PRN Reason Stop Dose Admin Acetaminophen 650 mg 09/28/17 19:28 09/29/17 21:27 Tylenol - PO 650 mg Q6H PRN Administration PAIN LEVEL 7 - 10 Albuterol/Ipratropium 1 amp 09/28/17 20:00 09/30/17 12:22 Duoneb - NEB 1 amp RQID [facility] Administration Chlorhexidine Gluconate 1 applic 09/28/17 22:00 09/29/17 21:28 Hibiclens For Decolonization - TP 1 applic HS [facility] Administration Doxazosin Mesylate 4 mg 09/29/17 10:00 09/29/17 09:41 Cardura - PO 4 mg DAILY [facility] Administration Gabapentin 100 mg 09/28/17 22:00 09/30/17 10:50 Neurontin - PO 100 mg BID [facility] Administration Heparin Sodium (Porcine) 5,000 unit 09/28/17 22:00 09/30/17 06:19 Heparin - SQ 5,000 unit TID [facility] Administration Vancomycin HCl 1,000 mg/ 250 mls @ 166.667 mls/hr 09/28/17 19:28 Dextrose IVPB 09/28/17 20:57 ONCE ONE Protocol Piperacillin Sod/Tazobactam 50 mls @ 100 mls/hr 09/29/17 02:00 09/30/17 10:50 Sod 2.25 gm/ Dextrose IVPB 100 mls/hr Q8H-IV [facility] Administration Protocol Insulin Aspart 1 vial 09/28/17 22:00 09/30/17 06:38 Novolog Vial Sliding Scale - SQ Not Given ACHS [facility] Protocol Insulin Detemir 10 units 10/01/17 10:00 Levemir Vial SQ DAILY [facility] Metoprolol Tartrate 50 mg 09/28/17 22:00 09/30/17 10:50 Lopressor - PO 50 mg BID [facility] Administration Mupirocin 1 applic 09/28/17 22:00 09/29/17 21:29 Bactroban Ointment (For Decolonization) - NS 10/03/17 21:59 1 applic BID [facility] Administration Oxycodone HCl 5 mg 09/28/17 21:28 Roxicodone - PO Q4H PRN PAIN LEVEL 4 - 6 Oxycodone HCl 10 mg 09/28/17 21:28 09/30/17 10:50 Roxicodone - PO 10 mg Q4H PRN Administration PAIN LEVEL 7 - 10 Sevelamer Carbonate 1,600 mg 09/29/17 08:00 09/30/17 10:43 Renvela - PO Not Given TIDCM [facility] Trazodone HCl 300 mg 09/28/17 22:00 09/29/17 21:29 Desyrel - PO 300 mg HS [facility] Administration ASSESSMENT/PLAN: #ID -MSSA/MRSA bacteremia suspect line sepsis from indwelling dialysis catheter - catheter removed -Tmax 101.9 overnight, WBC up to 17.2 -Urine cx Klebsiella -FU repeat cultures -Cont. IV abx: Zosyn, Daptomycin -CHAKA to r/o endocarditis -ID on board #Vascular -Right IJ thrombus likely catheter related -No A/C at this time per Vascular -VTE prophylaxis #CV -HTN -Lopressor 50 BID -monitor BP # -ESRD -Dialysis T,T,S. Last dialysis Saturday -will likely warrant dialysis via temporary catheter #GI -Hgb 7.7 -Keep hgb >7 -no indication for transfusion at this time #ENDO -held PM Levemir due to hypoglycemia -ISS -BGM #PULM -O2 as needed. -Duonebs PRN #FEN -No Iv fluids -monitor lytes -NPO for TTE PPx: -Hep SQ Will transfer to same day surgery center following [facility] Visit type - Emergency Visit Emergency Visit: Yes ED Registration Date: 09/24/17 Care time: The patient presented to the Emergency Department on the above date and was hospitalized for further evaluation of their emergent condition. - New Patient This patient is new to me today: Yes Date on this admission: 09/30/17 - Critical Care Critical Care patient: Yes Total Critical Care Time (in minutes): 40 Critical Care Statement: The care of this patient involved high complexity decision making to prevent further life threatening deterioration of the patient 's condition and/or to evaluate & treat vital organ system(s) failure or risk of failure.
[2017-09-30] MEDS ORDERED: MIDAZOLAM HCL 2 MG/2 ML SINGLE DOSE VIAL ONE (13:19)
--- NOTE | 2017-09-30 14:07 | PN ---
Progress Note, Physician History of Present Illness: patient still c/o of neck pain in icu now still continues to have positive blood cx still spiking fevers frances done - Current Medication List Current Medications: Active Medications Acetaminophen (Tylenol -) 650 mg PO Q6H PRN PRN Reason: PAIN LEVEL 7 - 10 Last Admin: 09/29/17 21:27 Dose: 650 mg Albuterol/Ipratropium (Duoneb -) 1 amp NEB RQID [facility] Last Admin: 09/30/17 12:22 Dose: 1 amp Chlorhexidine Gluconate (Hibiclens For Decolonization -) 1 applic TP HS [facility] Last Admin: 09/29/17 21:28 Dose: 1 applic Doxazosin Mesylate (Cardura -) 4 mg PO DAILY [facility] Last Admin: 09/29/17 09:41 Dose: 4 mg Gabapentin (Neurontin -) 100 mg PO BID [facility] Last Admin: 09/30/17 10:50 Dose: 100 mg Heparin Sodium (Porcine) (Heparin -) 5,000 unit SQ TID [facility] Last Admin: 09/30/17 06:19 Dose: 5,000 unit Vancomycin HCl 1,000 mg/ (Dextrose) 250 mls @ 166.667 mls/hr IVPB ONCE ONE; Protocol Stop: 09/28/17 20:57 Piperacillin Sod/Tazobactam (Sod 2.25 gm/ Dextrose) 50 mls @ 100 mls/hr IVPB Q8H-IV [facility]; Protocol Last Admin: 09/30/17 10:50 Dose: 100 mls/hr Insulin Aspart (Novolog Vial Sliding Scale -) 1 vial SQ ACHS [facility]; Protocol Last Admin: 09/30/17 13:25 Dose: Not Given Insulin Detemir (Levemir Vial) 10 units SQ DAILY [facility] Metoprolol Tartrate (Lopressor -) 50 mg PO BID [facility] Last Admin: 09/30/17 10:50 Dose: 50 mg Mupirocin (Bactroban Ointment (For Decolonization) -) 1 applic NS BID [facility] Stop: 10/03/17 21:59 Last Admin: 09/29/17 21:29 Dose: 1 applic Oxycodone HCl (Roxicodone -) 5 mg PO Q4H PRN PRN Reason: PAIN LEVEL 4 - 6 Oxycodone HCl (Roxicodone -) 10 mg PO Q4H PRN PRN Reason: PAIN LEVEL 7 - 10 Last Admin: 09/30/17 10:50 Dose: 10 mg Sevelamer Carbonate (Renvela -) 1,600 mg PO TIDCM [facility] Last Admin: 09/30/17 13:25 Dose: Not Given Trazodone HCl (Desyrel -) 300 mg PO HS [facility] Last Admin: 09/29/17 21:29 Dose: 300 mg - Objective Vital Signs: Vital Signs Temperature 99.2 F 09/30/17 10:00 Pulse Rate 94 H 09/30/17 10:00 Respiratory Rate 16 09/30/17 10:00 Blood Pressure 126/50 09/30/17 10:00 O2 Sat by Pulse Oximetry (%) 98 09/30/17 09:00 Constitutional: Yes: Calm, Mild Distress Cardiovascular: Yes: Regular Rate and Rhythm Respiratory: Yes: Regular, CTA Bilaterally Gastrointestinal: Yes: Normal Bowel Sounds, Soft Musculoskeletal: Yes: WNL Extremities: Yes: Other Neurological: Yes: Alert, Oriented Psychiatric: Yes: Alert, Oriented Labs: CBC, BMP 09/30/17 05:20 09/30/17 05:20 INR, PTT INR 1.14 (0.82-1.09) 09/25/17 10:38 Assessment/Plan patient just coming back form [facility] also received a dose of dapto gm positive bacteremia esrd fever hyperkalemia hyponatremia pericardial effusion plan will check vanco level continue abx await repeat cx reports of repeat cx report positive then will switch to dapto no AC according to vascular monitor fevers cc time 40 min
[2017-09-30] MEDS ORDERED: HEMOQUE TEST 1 EACH EACH ONE (14:18)
[2017-09-30] MEDS: MUPIROCIN 2% TOPICAL OINTMENT FOR DECOLONIZATION NS SCH ×2 (14:23→21:53)
--- NOTE | 2017-09-30 16:36 | PN ---
Physical Exam: SUBJECTIVE: Patient seen and examined in ICU. Pt has pain from back of his head , through r side of his neck to r chest OBJECTIVE: Vital Signs Period Temp Pulse Resp BP Sys/Gutierrez Pulse Ox Last 24 Hr 97.3 F-101.9 F 75-101 12-22 81-143/50-68 90-98 PE Neuro: alert, awake, cn 2-12intact HEENT: R sided neck swelling Pulm: clear anteriorly CV: s1 s2 rrr no mrg Abd: s nt nd + bs Ext: warm, LLE bka, rle no edema Laboratory Results - last 24 hr 09/28/17 09/29/17 09/30/17 21:27 16:51 05:20 WBC 17.2 H RBC 2.65 L Hgb 7.7 L D Hct 23.8 L MCV 90.0 MCH 29.0 MCHC 32.3 RDW 16.0 H Plt Count 275 MPV 9.8 Neutrophils % 80.8 Neutrophils % (Manual) 76.0 Band Neutrophils % 2.0 Lymphocytes % 7.6 L D Lymphocytes % (Manual) 12.0 D Monocytes % 9.4 Monocytes % (Manual) 6 Eosinophils % 1.7 Eosinophils % (Manual) 4.0 D Basophils % 0.5 Basophils % (Manual) 0.0 Myelocytes % (Man) 0 Promyelocytes % (Man) 0 Blast Cells % (Manual) 0 Nucleated RBC % 0 Metamyelocytes 0 Hypochromia 2+ Platelet Estimate Normal Basophilic Stippling 1+ Tear Drop Cells 1+ Sodium Potassium Chloride Carbon Dioxide Anion Gap BUN Creatinine Creat Clearance w eGFR POC Glucometer > [phone] Random Glucose Calcium Phosphorus Magnesium Total Bilirubin AST ALT Alkaline Phosphatase Total Protein Albumin 09/30/17 09/30/17 09/30/17 05:20 06:19 11:09 WBC RBC Hgb Hct MCV MCH MCHC RDW Plt Count MPV Neutrophils % Neutrophils % (Manual) Band Neutrophils % Lymphocytes % Lymphocytes % (Manual) Monocytes % Monocytes % (Manual) Eosinophils % Eosinophils % (Manual) Basophils % Basophils % (Manual) Myelocytes % (Man) Promyelocytes % (Man) Blast Cells % (Manual) Nucleated RBC % Metamyelocytes Hypochromia Platelet Estimate Basophilic Stippling Tear Drop Cells Sodium 132 L Potassium 3.8 Chloride 94 L Carbon Dioxide 28 Anion Gap 10 BUN 64 H D Creatinine 8.0 H* D Creat Clearance w eGFR 6.87 POC Glucometer 82.27332 303.39943 Random Glucose 45 L* Calcium 7.4 L Phosphorus 4.1 Magnesium 2.1 D Total Bilirubin 0.5 D AST 51 H ALT 29 Alkaline Phosphatase 114 Total Protein 5.2 L Albumin 1.8 L Active Medications Generic Name Dose Route Start Last Admin Trade Name Freq PRN Reason Stop Dose Admin Acetaminophen 650 mg 09/28/17 19:28 09/29/17 21:27 Tylenol - PO 650 mg Q6H PRN Administration PAIN LEVEL 7 - 10 Albuterol/Ipratropium 1 amp 09/28/17 20:00 09/30/17 12:22 Duoneb - NEB 1 amp RQID [facility] Administration Chlorhexidine Gluconate 1 applic 09/28/17 22:00 09/29/17 21:28 Hibiclens For Decolonization - TP 1 applic HS [facility] Administration Doxazosin Mesylate 4 mg 09/29/17 10:00 09/29/17 09:41 Cardura - PO 4 mg DAILY [facility] Administration Gabapentin 100 mg 09/28/17 22:00 09/30/17 10:50 Neurontin - PO 100 mg BID [facility] Administration Heparin Sodium (Porcine) 5,000 unit 09/28/17 22:00 09/30/17 14:49 Heparin - SQ 5,000 unit TID [facility] Administration Vancomycin HCl 1,000 mg/ 250 mls @ 166.667 mls/hr 09/28/17 19:28 Dextrose IVPB 09/28/17 20:57 ONCE ONE Protocol Piperacillin Sod/Tazobactam 50 mls @ 100 mls/hr 09/29/17 02:00 09/30/17 10:50 Sod 2.25 gm/ Dextrose IVPB 100 mls/hr Q8H-IV [facility] Administration Protocol Insulin Aspart 1 vial 09/28/17 22:00 09/30/17 13:25 Novolog Vial Sliding Scale - SQ Not Given ACHS [facility] Protocol Insulin Detemir 10 units 10/01/17 10:00 Levemir Vial SQ DAILY [facility] Metoprolol Tartrate 50 mg 09/28/17 22:00 09/30/17 10:50 Lopressor - PO 50 mg BID [facility] Administration Mupirocin 1 applic 09/28/17 22:00 09/30/17 14:23 Bactroban Ointment (For Decolonization) - NS 10/03/17 21:59 1 applic BID [facility] Administration Oxycodone HCl 5 mg 09/28/17 21:28 Roxicodone - PO Q4H PRN PAIN LEVEL 4 - 6 Oxycodone HCl 10 mg 09/28/17 21:28 09/30/17 10:50 Roxicodone - PO 10 mg Q4H PRN Administration PAIN LEVEL 7 - 10 Sevelamer Carbonate 1,600 mg 09/29/17 08:00 09/30/17 13:25 Renvela - PO Not Given TIDCM [facility] Trazodone HCl 300 mg 09/28/17 22:00 09/29/17 21:29 Desyrel - PO 300 mg HS [facility] Administration Microbiology 09/29/17 15:20 Blood - Peripheral Venous Blood Culture - Preliminary NO GROWTH OBTAINED AFTER 24 HOURS, INCUBATION TO CONTINUE FOR 4 DAYS. 09/29/17 14:49 Blood - Peripheral Venous Blood Culture - Preliminary NO GROWTH OBTAINED AFTER 24 HOURS, INCUBATION TO CONTINUE FOR 4 DAYS. 09/28/17 06:15 Blood - Peripheral Venous Blood Culture - Preliminary Staphylococcus Latex Coag Pos 09/28/17 06:00 Blood - Peripheral Venous Blood Culture - Preliminary Staphylococcus Latex Coag Pos 09/25/17 10:50 Wound Gram Stain - Final 09/25/17 10:50 Wound Wound Culture - Final S Aureus 09/26/17 12:10 Sputum - Expectorated Gram Stain - Final 09/26/17 12:10 Sputum - Expectorated Sputum Culture - Final NORMAL RESPIRATORY SHERIE 09/26/17 17:35 Blood - Peripheral Venous Blood Culture - Final Presumptive Mrsa (Pbp2a Pos) 09/26/17 17:35 Blood - Peripheral Venous Blood Culture - Final Presumptive Mrsa (Pbp2a Pos) 09/24/17 11:24 Blood - Peripheral Venous Blood Culture - Final Staphylococcus Latex Coag Pos 09/24/17 11:24 Blood - Peripheral Venous Blood Culture - Final S Aureus 09/24/17 16:10 Urine - Urine Clean Catch Urine Culture - Final Klebsiella Pneumoniae Klebsiella Pneumoniae#2 Assessment: 61 year old male with pmhx of DM II, HTN, ESRD (Tues, Thurs, Sat), osteoarthritis and left below the knee amputation presented to the ED with + BC from [facility] site following HD. Plan: 1. MSSA/MRSA bactereia - Likely d/t indwelling HD catheter, since removed - Most recent ND - [facility] today - Continue zosyn, dapto - ID seeing 2. Klebsiella UTI - Abx above 3. R IJ thrombus - Per vascular no AC at this time 4. ESRD - No access at this time - Will need access for HD tomorrow - Renal following - Refrain from additional fluids - Cont Renvela 5. HTN - Controlled - Lopressor 50mg BID 6. Acute on chronic anemia - No indication for transfusion at this time 7. DM II - ISS, BGM ACHS - Levemir 10units daily 8. DVT - heparin sq Visit type - Emergency Visit Emergency Visit: Yes ED Registration Date: 09/24/17 Care time: The patient presented to the Emergency Department on the above date and was hospitalized for further evaluation of their emergent condition. - New Patient This patient is new to me today: Yes Date on this admission: 09/30/17 - Critical Care Critical Care patient: No
[2017-09-30] MEDS: DOXAZOSIN MESYLATE 4 MG TABLET PO SCH (17:10)
[2017-09-30] MEDS ORDERED: traZODone HCL 50 MG TABLET (FP) ONE (20:39)
[2017-09-30] MEDS: traZODone HCL 100 MG TABLET (FP) PO SCH (21:29)
[2017-09-30] MEDS: CHLORHEXIDINE GLUCONATE 4% CLEANSER FOR DECOLONIZATION TP SCH (21:53)
[2017-10-01] MEDS: PIPERACILLIN/TAZOB 2.25 GM 2.25 GM in DEXTROSE 5%-WATER - 50 ML IVPB SCH ×3 (01:25→18:09)
[2017-10-01] MEDS: HEPARIN NA (PORCINE) 5,000 UNITS/ML 1ML VIAL SQ SCH ×4 (05:19→21:29)
[2017-10-01] MEDS ORDERED: oxyCODONE HCL 5 MG TABLET PO PRN (05:28)
[2017-10-01] MEDS ORDERED: VANCOMYCIN 1,000 MG in DEXTROSE 5%-WATER - 250 ML IVPB ONE (05:28)
[2017-10-01] MEDS: oxyCODONE HCL 5 MG TABLET PO PRN ×3 (05:48→21:49)
[2017-10-01] MEDS: ACETAMINOPHEN 325 MG TABLET (FP) PO PRN (05:49)
[2017-10-01] MEDS: INSULIN (LEVEMIR) 100 UNITS/ML UNITS SQ SCH (06:05)
[2017-10-01] MEDS: INSULIN SLIDING SCALE (NOVOLOG) 1 VIAL SQ SCH ×4 (06:06→21:26)
[2017-10-01 07:34] LABS: HEMATOCRIT 22.7 % (35.4-49); HEMOGLOBIN 7.2 GM/dL (11.7-16.9); MCH 28.9 pg (25.7-33.7); MCHC 31.9 g/dl (32.0-35.9); MEAN CELL VOLUME 90.7 fl (80-96); MEAN PLT VOLUME 9.8 fl (7.5-11.1); PLATELET COUNT 327 K/MM3 (134-434); RDW 16.3 % (11.9-15.9); WHITE BLOOD COUNT 17.7 K/mm3 (4.0-10.0)
[2017-10-01] MEDS: ALBUTEROL SO4 2.5/IPRATROPIUM 0.5 INH SOL 3 ML VIAL.NEB. NEB SCH ×4 (07:35→21:09)
[2017-10-01 08:04] LABS: ALBUMIN 1.7 g/dl (3.4-5.0); ANION GAP 14 (8-16); BLOOD UREA NITROGEN 82 mg/dL (7-18); CHLORIDE 92 mmol/L (98-107); CO2 24 mmol/L (21-32); GLUCOSE,RANDOM 212 mg/dL (74-106); MAGNESIUM 2.1 mg/dL (1.8-2.4); POTASSIUM 4.1 mmol/L (3.5-5.1); SODIUM 130 mmol/L (136-145)
[2017-10-01 08:09] LABS: ALK PHOS 120 U/L (45-117); BILIRUBIN,TOTAL 0.4 mg/dL (0.2-1.0); PHOSPHOROUS 5.2 mg/dL (2.5-4.9); SGOT/AST 32 U/L (15-37); SGPT/ALT 29 U/L (12-78); TOT PROT 5.3 g/dl (6.4-8.2)
[2017-10-01 08:13] LABS: CREATININE 9.4 mg/dL (0.7-1.3)
[2017-10-01] MEDS: SEVELAMER CARBONATE 800 MG TAB (FP) PO SCH ×3 (08:45→18:10)
[2017-10-01] MEDS ORDERED: PT OWN MED DRAWER 7, Y5N ONE (09:19)
[2017-10-01] MEDS ORDERED: PIPERACILLIN/TAZOBACTAM 2.25 GM VIAL IVPB ONE ×3 (09:19→23:33)
[2017-10-01] MEDS ORDERED: DEXTROSE 5%-WATER - 50 ML IVPB ONE ×3 (09:19→23:33)
[2017-10-01] MEDS: METOPROLOL TARTRATE 50 MG TABLET (FP) PO SCH ×2 (09:34→21:25)
[2017-10-01] MEDS: GABAPENTIN 100 MG CAPSULE (FP) PO SCH ×2 (09:34→21:28)
[2017-10-01] MEDS: DOXAZOSIN MESYLATE 4 MG TABLET PO SCH (09:35)
--- NOTE | 2017-10-01 09:57 | PN ---
Progress Note (short form) - Note Progress Note: PULMONARY Fever curve trending down. CHAKA yesterday without evidence of vegetations. Last Vital Signs Temp Pulse Resp BP Pulse Ox 99 F 86 20 116/54 98 10/01/17 06:46 10/01/17 06:46 10/01/17 06:46 10/01/17 06:46 09/30/17 20:47 Gen: NAD at rest Heart: RRR Lung: decreased breath sounds at the bases Abd: soft, nontender Ext: L BKA CBC, BMP 10/01/17 06:20 10/01/17 07:07 Active Medications Acetaminophen (Tylenol -) 650 mg PO Q6H PRN PRN Reason: PAIN LEVEL 7 - 10 Last Admin: 10/01/17 05:49 Dose: 650 mg Albuterol/Ipratropium (Duoneb -) 1 amp NEB RQID [facility] Last Admin: 10/01/17 07:35 Dose: Not Given Doxazosin Mesylate (Cardura -) 4 mg PO DAILY [facility] Last Admin: 10/01/17 09:35 Dose: 4 mg Gabapentin (Neurontin -) 100 mg PO BID [facility] Last Admin: 10/01/17 09:34 Dose: 100 mg Heparin Sodium (Porcine) (Heparin -) 5,000 unit SQ TID [facility] Last Admin: 10/01/17 05:44 Dose: 5,000 unit Vancomycin HCl 1,000 mg/ (Dextrose) 250 mls @ 166.667 mls/hr IVPB ONCE ONE; Protocol Stop: 10/01/17 06:57 Piperacillin Sod/Tazobactam (Sod 2.25 gm/ Dextrose) 50 mls @ 100 mls/hr IVPB Q8H-IV [facility]; Protocol Last Admin: 10/01/17 09:35 Dose: 100 mls/hr Insulin Aspart (Novolog Vial Sliding Scale -) 1 vial SQ ACHS [facility]; Protocol Last Admin: 10/01/17 06:06 Dose: 6 units Insulin Detemir (Levemir Vial) 10 units SQ DAILY@0700 [facility] Last Admin: 10/01/17 06:05 Dose: 10 units Metoprolol Tartrate (Lopressor -) 50 mg PO BID [facility] Last Admin: 10/01/17 09:34 Dose: 50 mg Oxycodone HCl (Roxicodone -) 5 mg PO Q4H PRN PRN Reason: PAIN LEVEL 4 - 6 Oxycodone HCl (Roxicodone -) 10 mg PO Q4H PRN PRN Reason: PAIN LEVEL 7 - 10 Last Admin: 10/01/17 09:34 Dose: 10 mg Sevelamer Carbonate (Renvela -) 1,600 mg PO TIDCM [facility] Last Admin: 10/01/17 08:45 Dose: 1,600 mg Trazodone HCl (Desyrel -) 300 mg PO HS [facility] A/P MRSA Bacteremia Sepsis Pericardial Effusion ESRD on HD HTN DM PAD s/p L BKA - continue antibiotics - surveillance cultures until cleared - HD per renal - monitor H/H - O2 as needed - inhaled bronchodilators - DVT prophylaxis
[2017-10-01] MEDS ORDERED: INSULIN (LEVEMIR) 100 UNITS/ML UNITS SQ SCH (10:00)
[2017-10-01] MEDS ORDERED: MUPIROCIN 2% TOPICAL OINTMENT FOR DECOLONIZATION NS SCH (10:00)
--- NOTE | 2017-10-01 10:12 | PN ---
Progress Note, Physician Chief Complaint: Events noted Not in distress History of Present Illness: Patient was seen and examined. Awake and alert. Chart was reviewed Denies chest pain, SOB or palpitations. No vegetations - Current Medication List Current Medications: Active Medications Acetaminophen (Tylenol -) 650 mg PO Q6H PRN PRN Reason: PAIN LEVEL 7 - 10 Last Admin: 10/01/17 05:49 Dose: 650 mg Albuterol/Ipratropium (Duoneb -) 1 amp NEB RQID [facility] Last Admin: 10/01/17 07:35 Dose: Not Given Doxazosin Mesylate (Cardura -) 4 mg PO DAILY [facility] Last Admin: 10/01/17 09:35 Dose: 4 mg Gabapentin (Neurontin -) 100 mg PO BID [facility] Last Admin: 10/01/17 09:34 Dose: 100 mg Heparin Sodium (Porcine) (Heparin -) 5,000 unit SQ TID [facility] Last Admin: 10/01/17 05:44 Dose: 5,000 unit Vancomycin HCl 1,000 mg/ (Dextrose) 250 mls @ 166.667 mls/hr IVPB ONCE ONE; Protocol Stop: 10/01/17 06:57 Piperacillin Sod/Tazobactam (Sod 2.25 gm/ Dextrose) 50 mls @ 100 mls/hr IVPB Q8H-IV [facility]; Protocol Last Admin: 10/01/17 09:35 Dose: 100 mls/hr Insulin Aspart (Novolog Vial Sliding Scale -) 1 vial SQ ACHS [facility]; Protocol Last Admin: 10/01/17 06:06 Dose: 6 units Insulin Detemir (Levemir Vial) 10 units SQ DAILY@0700 [facility] Last Admin: 10/01/17 06:05 Dose: 10 units Metoprolol Tartrate (Lopressor -) 50 mg PO BID [facility] Last Admin: 10/01/17 09:34 Dose: 50 mg Oxycodone HCl (Roxicodone -) 5 mg PO Q4H PRN PRN Reason: PAIN LEVEL 4 - 6 Oxycodone HCl (Roxicodone -) 10 mg PO Q4H PRN PRN Reason: PAIN LEVEL 7 - 10 Last Admin: 10/01/17 09:34 Dose: 10 mg Sevelamer Carbonate (Renvela -) 1,600 mg PO TIDCM [facility] Last Admin: 10/01/17 08:45 Dose: 1,600 mg Trazodone HCl (Desyrel -) 300 mg PO HS [facility] - Objective Vital Signs: Vital Signs Temperature 99 F 10/01/17 06:46 Pulse Rate 86 10/01/17 06:46 Respiratory Rate 20 10/01/17 06:46 Blood Pressure 116/54 10/01/17 06:46 O2 Sat by Pulse Oximetry (%) 98 09/30/17 20:47 HENT: Yes: Atraumatic Neck: Yes: Supple Cardiovascular: Yes: Regular Rate and Rhythm, S1, S2 Respiratory: Yes: CTA Bilaterally Gastrointestinal: Yes: Normal Bowel Sounds, Soft. No: Tenderness Edema: No Labs: CBC, BMP 10/01/17 06:20 10/01/17 07:07 Problem List - Problems (1) FROYLAN (acute kidney injury) Code(s): N17.9 - ACUTE KIDNEY FAILURE, UNSPECIFIED (2) Bacteremia due to Gram-positive bacteria Code(s): R78.81 - BACTEREMIA (3) ESRD (end stage renal disease) Code(s): N18.6 - END STAGE RENAL DISEASE (4) Peripheral vascular disease due to secondary diabetes Code(s): E13.51 - OTH DIABETES W DIABETIC PERIPHERAL ANGIOPATHY W/O GANGRENE (5) Sepsis Code(s): A41.9 - SEPSIS, UNSPECIFIED ORGANISM Qualifiers: Sepsis type: methicillin susceptible Staphylococcus aureus Qualified Code(s ): A41.01 - Sepsis due to Methicillin susceptible Staphylococcus aureus (6) Diabetes mellitus, insulin dependent (IDDM), controlled Code(s): E11.9 - TYPE 2 DIABETES MELLITUS WITHOUT COMPLICATIONS; Z79.4 - SKILLED NURSING (CURRENT) USE OF INSULIN (7) Acute on chronic diastolic heart failure Code(s): I50.33 - ACUTE ON CHRONIC DIASTOLIC (CONGESTIVE) HEART FAILURE (8) Acute renal failure on dialysis Code(s): N17.9 - ACUTE KIDNEY FAILURE, UNSPECIFIED; Z99.2 - DEPENDENCE ON RENAL DIALYSIS (9) Amputation, below knee, unilateral, traumatic Code(s): S88.119A - COMPLETE TRAUM AMP AT LEV BETW KN & ANKL, UNSP LOW LEG, INIT (10) Hypoglycemia Code(s): E16.2 - HYPOGLYCEMIA, UNSPECIFIED (11) Anemia Code(s): D64.9 - ANEMIA, UNSPECIFIED Qualifiers: Anemia type: due to chronic kidney disease (12) Diabetes mellitus Code(s): E11.9 - TYPE 2 DIABETES MELLITUS WITHOUT COMPLICATIONS Qualifiers: Diabetes mellitus type: type 2 Diabetes mellitus prison insulin use: without adjunct faculty for medical terminology use Diabetes mellitus complication status: without complication Qualified Code(s): E11.9 - Type 2 diabetes mellitus without complications (13) HTN (hypertension) Code(s): I10 - ESSENTIAL (PRIMARY) HYPERTENSION Qualifiers: Hypertension type: essential hypertension Qualified Code(s): I10 - Essential (primary) hypertension Assessment/Plan 1. MSSA/MRSA bacteremia suspect line sepsis from indwelling dialysis catheter - catheter removed - intermittently febrile due to sepsis 2. ESRD on HD, suspected diabetic nephropathy with hyperkalemia and hyponatremia 3. 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 Type 2 DM 5. HTN/HCVD 6. PAD 7. Anemia of chronic kidney disease 8. Bacteruria 9. Right IJ thrombus probably catheter related 10. PAD s/p left BKA PLAN: 1. Antibiotic course per ID, observe for clearance post catheter removal. CHAKA done yesterday and shows no evidence of vegetations 2. HD via left femoral groin line 3. Not on anticoagulation at this time with Right IJ thromus as per Vascular surgery 4. Continue Lopressor as tolerated Bay Diallo MD
--- NOTE | 2017-10-01 11:59 | PN ---
Progress Note, Physician History of Present Illness: patient still with blood cx positive pain in the neck having fevers - Current Medication List Current Medications: Active Medications Acetaminophen (Tylenol -) 650 mg PO Q6H PRN PRN Reason: PAIN LEVEL 7 - 10 Last Admin: 10/01/17 05:49 Dose: 650 mg Albuterol/Ipratropium (Duoneb -) 1 amp NEB RQID [facility] Last Admin: 10/01/17 07:35 Dose: Not Given Doxazosin Mesylate (Cardura -) 4 mg PO DAILY [facility] Last Admin: 10/01/17 09:35 Dose: 4 mg Gabapentin (Neurontin -) 100 mg PO BID [facility] Last Admin: 10/01/17 09:34 Dose: 100 mg Heparin Sodium (Porcine) (Heparin -) 5,000 unit SQ TID [facility] Last Admin: 10/01/17 05:44 Dose: 5,000 unit Piperacillin Sod/Tazobactam (Sod 2.25 gm/ Dextrose) 50 mls @ 100 mls/hr IVPB Q8H-IV [facility]; Protocol Last Admin: 10/01/17 09:35 Dose: 100 mls/hr Insulin Aspart (Novolog Vial Sliding Scale -) 1 vial SQ ACHS [facility]; Protocol Last Admin: 10/01/17 06:06 Dose: 6 units Insulin Detemir (Levemir Vial) 10 units SQ DAILY@0700 [facility] Last Admin: 10/01/17 06:05 Dose: 10 units Lidocaine (Lidoderm Patch -) 1 patch TP DAILY [facility] Metoprolol Tartrate (Lopressor -) 50 mg PO BID [facility] Last Admin: 10/01/17 09:34 Dose: 50 mg Miscellaneous (Lidoderm Patch Removal) 1 each MC DAILY@2200 [facility] Oxycodone HCl (Roxicodone -) 5 mg PO Q4H PRN PRN Reason: PAIN LEVEL 4 - 6 Oxycodone HCl (Roxicodone -) 10 mg PO Q4H PRN PRN Reason: PAIN LEVEL 7 - 10 Last Admin: 10/01/17 09:34 Dose: 10 mg Sevelamer Carbonate (Renvela -) 1,600 mg PO TIDCM [facility] Last Admin: 10/01/17 08:45 Dose: 1,600 mg Trazodone HCl (Desyrel -) 300 mg PO [facility] - Objective Vital Signs: Vital Signs Temperature 99 F 10/01/17 06:46 Pulse Rate 86 10/01/17 06:46 Respiratory Rate 20 10/01/17 06:46 Blood Pressure 116/54 10/01/17 06:46 O2 Sat by Pulse Oximetry (%) 98 09/30/17 20:47 Constitutional: Yes: No Distress, Calm HENT: Yes: Other (rt side of the neck still painful but movement has improved) Cardiovascular: Yes: Regular Rate and Rhythm Respiratory: Yes: Regular, CTA Bilaterally Gastrointestinal: Yes: Normal Bowel Sounds, Soft Musculoskeletal: Yes: WNL Extremities: Yes: WNL Neurological: Yes: Alert, Oriented Psychiatric: Yes: Alert, Oriented Labs: CBC, BMP 10/01/17 06:20 10/01/17 07:07 INR, PTT INR 1.14 (0.82-1.09) 09/25/17 10:38 Assessment/Plan patient just coming back form CHAKA also received a dose of dapto gm positive bacteremia esrd fever hyperkalemia hyponatremia pericardial effusion plan will change abx to dapto continue monitoring blood cx repeat blood cx for tomorrow dialysis
[2017-10-01] MEDS ORDERED: DAPTOMYCIN 500 MG in SODIUM CHLORIDE 100 ML IVPB ONE (12:00)
[2017-10-01] MEDS: LIDOCAINE 5% TOPICAL PATCH TP SCH (12:45)
--- NOTE | 2017-10-01 15:14 | PN ---
Physical Exam: SUBJECTIVE: Patient seen and examined. He continues to have neck pain. OBJECTIVE: Vital Signs Period Temp Pulse Resp BP Sys/Gutierrez Pulse Ox Last 24 Hr 97.9 F-99.5 F 74-89 12-20 100-119/52-95 98 PE Neuro: alert, awake, cn 2-12intact HEENT: R sided neck swelling + tenderness Pulm: clear anteriorly CV: s1 s2 rrr no mrg Abd: s nt nd + bs Ext: warm, LLE bka, rle no edema Laboratory Results - last 24 hr 10/01/17 10/01/17 10/01/17 06:20 07:07 12:46 WBC 17.7 H RBC 2.50 L Hgb 7.2 L Hct 22.7 L MCV 90.7 MCH 28.9 MCHC 31.9 L RDW 16.3 H Plt Count 327 MPV 9.8 Sodium 130 L Potassium 4.1 Chloride 92 L Carbon Dioxide 24 Anion Gap 14 BUN 82 H D Creatinine 9.4 H* Creat Clearance w eGFR 5.70 POC Glucometer 254 Random Glucose 212 H D Calcium 7.0 L Phosphorus 5.2 H D Magnesium 2.1 Total Bilirubin 0.4 AST 32 D ALT 29 Alkaline Phosphatase 120 H Total Protein 5.3 L Albumin 1.7 L Active Medications Generic Name Dose Route Start Last Admin Trade Name Kashifq PRN Reason Stop Dose Admin Acetaminophen 650 mg 10/01/17 05:28 10/01/17 05:49 Tylenol - PO 650 mg Q6H PRN Administration PAIN LEVEL 7 - 10 Albuterol/Ipratropium 1 amp 10/01/17 08:00 10/01/17 07:35 Duoneb - NEB Not Given RQID [facility] Doxazosin Mesylate 4 mg 10/01/17 10:00 10/01/17 09:35 Cardura - PO 4 mg DAILY [facility] Administration Gabapentin 100 mg 10/01/17 10:00 10/01/17 09:34 Neurontin - PO 100 mg BID [facility] Administration Heparin Sodium (Porcine) 5,000 unit 10/01/17 06:00 10/01/17 05:44 Heparin - SQ 5,000 unit TID [facility] Administration Piperacillin Sod/Tazobactam 50 mls @ 100 mls/hr 10/01/17 10:00 10/01/17 09:35 Sod 2.25 gm/ Dextrose IVPB 100 mls/hr Q8H-IV [facility] Administration Protocol Insulin Aspart 1 vial 10/01/17 07:00 10/01/17 12:46 Novolog Vial Sliding Scale - SQ 8 units ACHS [facility] Administration Protocol Insulin Detemir 10 units 10/01/17 07:00 10/01/17 06:05 Levemir Vial SQ 10 units DAILY@0700 [facility] Administration Lidocaine 1 patch 10/01/17 11:45 10/01/17 12:45 Lidoderm Patch - TP 1 patch DAILY [facility] Administration Metoprolol Tartrate 50 mg 10/01/17 10:00 10/01/17 09:34 Lopressor - PO 50 mg BID [facility] Administration Miscellaneous 1 each 10/01/17 22:00 Lidoderm Patch Removal MC DAILY@2200 [facility] Oxycodone HCl 5 mg 10/01/17 05:28 Roxicodone - PO Q4H PRN PAIN LEVEL 4 - 6 Oxycodone HCl 10 mg 10/01/17 05:28 10/01/17 09:34 Roxicodone - PO 10 mg Q4H PRN Administration PAIN LEVEL 7 - 10 Sevelamer Carbonate 1,600 mg 10/01/17 08:00 10/01/17 12:44 Renvela - PO 1,600 mg TIDCM [facility] Administration Trazodone HCl 300 mg 10/01/17 22:00 Desyrel - PO HS [facility] Microbiology 09/29/17 14:49 Blood Culture - Preliminary Blood - Peripheral Venous Pending Organism 09/28/17 06:15 Blood Culture - Final Blood - Peripheral Venous Mr S Aureus 09/28/17 06:00 Blood Culture - Final Blood - Peripheral Venous Mr S Aureus 09/29/17 15:20 Blood Culture - Preliminary Blood - Peripheral Venous Staphylococcus Latex Coag Pos Assessment: 61 year old male with pmhx of DM II, HTN, ESRD (Tues, Th, Sat), osteoarthritis and left below the knee amputation presented to the ED with + BC from permacath site following HD. Plan: 1. MSSA/MRSA bactereia - Likely d/t indwelling HD catheter, since removed - CHAKA negative for vegetation - Recent blood cultures +, will need to re draw - Continue zosyn, dapto - ID seeing 2. Klebsiella UTI - Abx above 3. R IJ thrombus - Per vascular no AC at this time 4. ESRD - No access at this time - Will need access for HD tomorrow, today breathing stable - Refrain from additional fluids - Cont Renvela - D/w Renal 5. HTN - Controlled - Lopressor 50mg BID 6. Acute on chronic anemia - No indication for transfusion at this time 7. DM II - ISS, BGM ACHS - Levemir 10units daily 8. DVT - heparin sq Visit type - Emergency Visit Emergency Visit: Yes ED Registration Date: 09/24/17 Care time: The patient presented to the Emergency Department on the above date and was hospitalized for further evaluation of their emergent condition. - New Patient This patient is new to me today: No - Critical Care Critical Care patient: No
--- NOTE | 2017-10-01 17:27 | PN ---
Progress Note (short form) - Note Progress Note: Renal Follow up for ESRD on HD Pt seen and examined in the ICU no acute complaints denies any chills no sob, chest pain abd pain neck discomfort helped with pain patch making urine Vital Signs Temperature 98.3 F 10/01/17 16:57 Pulse Rate 78 10/01/17 16:57 Respiratory Rate 20 10/01/17 16:57 Blood Pressure 128/66 10/01/17 16:57 O2 Sat by Pulse Oximetry (%) 98 10/01/17 09:00 Intake & Output 09/28/17 09/29/17 09/30/17 10/01/17 23:59 23:59 23:59 23:59 Intake Total 340 50 730 700 Output Total 50 0 Balance 340 50 680 700 Weight 79.435 kg 78.9 kg 80.3 kg 82.639 kg NAD awake and alert RRR CTA soft NT/ND no LE edema CBC, BMP 10/01/17 06:20 10/01/17 07:07 Current Medications Acetaminophen (Tylenol -) 650 mg PO Q6H PRN PRN Reason: PAIN LEVEL 7 - 10 Last Admin: 10/01/17 05:49 Dose: 650 mg Albuterol/Ipratropium (Duoneb -) 1 amp NEB RQID [facility] Last Admin: 10/01/17 15:13 Dose: 1 amp Doxazosin Mesylate (Cardura -) 4 mg PO DAILY [facility] Last Admin: 10/01/17 09:35 Dose: 4 mg Gabapentin (Neurontin -) 100 mg PO BID [facility] Last Admin: 10/01/17 09:34 Dose: 100 mg Heparin Sodium (Porcine) (Heparin -) 5,000 unit SQ TID [facility] Last Admin: 10/01/17 15:15 Dose: 5,000 unit Piperacillin Sod/Tazobactam (Sod 2.25 gm/ Dextrose) 50 mls @ 100 mls/hr IVPB Q8H-IV [facility]; Protocol Last Admin: 10/01/17 09:35 Dose: 100 mls/hr Insulin Aspart (Novolog Vial Sliding Scale -) 1 vial SQ ACHS [facility]; Protocol Last Admin: 10/01/17 12:46 Dose: 8 units Insulin Detemir (Levemir Vial) 10 units SQ DAILY@0700 [facility] Last Admin: 10/01/17 06:05 Dose: 10 units Lidocaine (Lidoderm Patch -) 1 patch TP DAILY [facility] Last Admin: 10/01/17 12:45 Dose: 1 patch Metoprolol Tartrate (Lopressor -) 50 mg PO BID [facility] Last Admin: 10/01/17 09:34 Dose: 50 mg Miscellaneous (Lidoderm Patch Removal) 1 each MC DAILY@2200 [facility] Oxycodone HCl (Roxicodone -) 5 mg PO Q4H PRN PRN Reason: PAIN LEVEL 4 - 6 Oxycodone HCl (Roxicodone -) 10 mg PO Q4H PRN PRN Reason: PAIN LEVEL 7 - 10 Last Admin: 10/01/17 09:34 Dose: 10 mg Sevelamer Carbonate (Renvela -) 1,600 mg PO TIDCM [facility] Last Admin: 10/01/17 12:44 Dose: 1,600 mg Trazodone HCl (Desyrel -) 300 mg PO [facility] 62 year old AA gentleman with PMhx of ESRD on HD ([facility]) secondary to suspected diabetic nephropathy, DM, Hypertension, PVD who presented outpatient blood cultures that were positive for gram positive Cocci. #ESRD on HD #Hyperkalemia #Hyponatremia #Gram + bacteremia/Sepsis #Anemia #Pericardial effusion no acute indication for [employer] today will plan for dialysis tomorrow, will require HD catheter placement continue abx as per ID f/u cultures Vascular follow up Miguel Jansen DO
[2017-10-01] MEDS ORDERED: traZODone HCL 50 MG TABLET (FP) ONE (20:30)
[2017-10-01] MEDS: LIDOCAINE PATCH REMOVAL MC SCH (21:24)
[2017-10-01] MEDS: traZODone HCL 100 MG TABLET (FP) PO SCH (21:24)
[2017-10-01] MEDS ORDERED: CHLORHEXIDINE GLUCONATE 4% CLEANSER FOR DECOLONIZATION TP SCH (22:00)
[2017-10-02] MEDS: PIPERACILLIN/TAZOB 2.25 GM 2.25 GM in DEXTROSE 5%-WATER - 50 ML IVPB SCH ×3 (02:35→17:31)
[2017-10-02] MEDS: HEPARIN NA (PORCINE) 5,000 UNITS/ML 1ML VIAL SQ SCH ×3 (05:53→21:56)
[2017-10-02] MEDS: INSULIN SLIDING SCALE (NOVOLOG) 1 VIAL SQ SCH ×4 (06:11→22:17)
[2017-10-02] MEDS: INSULIN (LEVEMIR) 100 UNITS/ML UNITS SQ SCH (06:13)
[2017-10-02] MEDS: oxyCODONE HCL 5 MG TABLET PO PRN ×4 (06:41→21:55)
[2017-10-02 07:01] LABS: CHLORIDE 91 mmol/L (98-107); SODIUM 129 mmol/L (136-145)
[2017-10-02 07:29] LABS: BASO % 0.2 % (0-2.0); EOS % 1.1 % (0-4.5); HEMATOCRIT 22.2 % (35.4-49); HEMOGLOBIN 7.2 GM/dL (11.7-16.9); LYMPH % 6.8 % (8-40); MCH 29.4 pg (25.7-33.7); MCHC 32.6 g/dl (32.0-35.9); MEAN CELL VOLUME 90.4 fl (80-96); MEAN PLT VOLUME 9.4 fl (7.5-11.1); MONO % 5.2 % (3.8-10.2); NEUT % 86.7 % (42.8-82.8); PLATELET COUNT 364 K/MM3 (134-434); RBC 2.46 M/mm3 (4.00-5.60); RDW 16.5 % (11.9-15.9); WHITE BLOOD COUNT 16.5 K/mm3 (4.0-10.0)
[2017-10-02] MEDS ORDERED: LIDOCAINE HCL 1%, 10 MG/ML (50 mL VIAL) SQ ONE (07:34)
[2017-10-02 07:47] LABS: ANION GAP 19 (8-16); BLOOD UREA NITROGEN 95 mg/dL (7-18); CALCIUM 7.3 mg/dL (8.5-10.1); CO2 19 mmol/L (21-32); GLUCOSE,RANDOM 185 mg/dL (74-106)
[2017-10-02 07:48] LABS: CREATININE 9.7 mg/dL (0.7-1.3)
[2017-10-02] MEDS ORDERED: LIDOCAINE HCL 1%, 10 MG/ML (20ML VIAL) ONE (08:04)
[2017-10-02] MEDS ORDERED: LIDOCAINE HCL 1%, 10 MG/ML (20ML VIAL) NR ONE (08:15)
[2017-10-02] MEDS: SEVELAMER CARBONATE 800 MG TAB (FP) PO SCH ×3 (08:50→17:38)
--- NOTE | 2017-10-02 08:53 | PROC ---
Central Line Insertion - Procedure Note TIME OUT performed prior to this procedure with verbal confirmation of correct patient identity, correct side, agreement of the procedure, correct patient position, availability of necessary equipment. The consent form is complete and accurate. Risk of possible infection, bleeding have been discussed with the patient. Safety precautions based on patient history or medication use has been addressed. Indication: Other (dialysis access) Consent on Chart: Yes Central Line: Dialysis Cath, Dual Lumen Position: Supine Area prepped with Chlorhexidine solution then draped using sterile barrier protection. Anesthesia: Lidocaine 1% Technique used: Seldinger Ultrasound Guided Assistance: Yes Site: Right Femoral Dark venous non-pulsatile flow noted from hub of needle. The catheter was introduced. Guide wire removed intact. Each port aspirated then flushed with heparin flush and capped. Line secured to skin with silk suture. Biopatch placed around base of line. Sterile occlusive dressing applied. No complications. Patient tolerated the procedure well. Shameka Sahu and Michael Do (senior PAs) we both present and assisted throughout entire procedure.
[2017-10-02] MEDS: ALBUTEROL SO4 2.5/IPRATROPIUM 0.5 INH SOL 3 ML VIAL.NEB. NEB SCH ×4 (09:00→20:36)
[2017-10-02] MEDS ORDERED: PIPERACILLIN/TAZOBACTAM 2.25 GM VIAL IVPB ONE ×2 (09:41→17:21)
[2017-10-02] MEDS ORDERED: DEXTROSE 5%-WATER - 50 ML IVPB ONE ×2 (09:41→17:22)
[2017-10-02] MEDS: METOPROLOL TARTRATE 50 MG TABLET (FP) PO SCH ×2 (09:50→21:56)
[2017-10-02] MEDS: GABAPENTIN 100 MG CAPSULE (FP) PO SCH ×2 (09:50→21:56)
[2017-10-02] MEDS: LIDOCAINE 5% TOPICAL PATCH TP SCH (09:50)
[2017-10-02] MEDS: DOXAZOSIN MESYLATE 4 MG TABLET PO SCH (09:52)
[2017-10-02] MEDS ORDERED: SODIUM CHLORIDE 250 ML IV PRN ×3 (10:34→17:40)
[2017-10-02] MEDS ORDERED: EPOETIN ALFA 20,000 UNIT/1 ML VIAL IVPUSH ONE (10:34)
[2017-10-02] MEDS ORDERED: DAPTOMYCIN 250 MG in SODIUM CHLORIDE 50 ML IVPB ONE (10:45)
[2017-10-02] MEDS: ACETAMINOPHEN 325 MG TABLET (FP) PO PRN ×2 (10:50→17:31)
[2017-10-02] MEDS ORDERED: INSULIN (NOVOLOG) ASPART 100 UNITS/ML 10ML VIAL ONE (11:55)
--- NOTE | 2017-10-02 12:58 | PN ---
Progress Note, Physician History of Present Illness: no new issues has been afebrile no specific events frances result noted no thrombus - Current Medication List Current Medications: Active Medications Acetaminophen (Tylenol -) 650 mg PO Q6H PRN PRN Reason: PAIN LEVEL 7 - 10 Last Admin: 10/02/17 10:50 Dose: 650 mg Albuterol/Ipratropium (Duoneb -) 1 amp NEB RQID [facility] Last Admin: 10/02/17 11:54 Dose: Not Given Doxazosin Mesylate (Cardura -) 4 mg PO DAILY [facility] Last Admin: 10/02/17 09:52 Dose: 4 mg Gabapentin (Neurontin -) 100 mg PO BID [facility] Last Admin: 10/02/17 09:50 Dose: 100 mg Heparin Sodium (Porcine) (Heparin -) 5,000 unit SQ TID [facility] Last Admin: 10/02/17 05:53 Dose: 5,000 unit Piperacillin Sod/Tazobactam (Sod 2.25 gm/ Dextrose) 50 mls @ 100 mls/hr IVPB Q8H-IV [facility]; Protocol Last Admin: 10/02/17 09:51 Dose: 100 mls/hr Sodium Chloride (Normal Saline -) 250 mls @ 3,000 mls/hr IV PRN PRN PRN Reason: Hypotension during Dialysis Stop: 10/03/17 10:35 Daptomycin 250 mg/ Sodium (Chloride) 50 mls @ 50 mls/hr IVPB DAILY [facility]; Protocol Stop: 10/04/17 09:59 Insulin Aspart (Novolog Vial Sliding Scale -) 1 vial SQ ACHS [facility]; Protocol Last Admin: 10/02/17 06:11 Dose: 6 units Insulin Detemir (Levemir Vial) 10 units SQ DAILY@0700 [facility] Last Admin: 10/02/17 06:13 Dose: 10 units Lidocaine (Lidoderm Patch -) 1 patch TP DAILY [facility] Last Admin: 10/02/17 09:50 Dose: 1 patch Metoprolol Tartrate (Lopressor -) 50 mg PO BID [facility] Last Admin: 10/02/17 09:50 Dose: 50 mg Miscellaneous (Lidoderm Patch Removal) 1 each MC DAILY@2200 [facility] Last Admin: 10/01/17 21:24 Dose: 1 each Oxycodone HCl (Roxicodone -) 5 mg PO Q4H PRN PRN Reason: PAIN LEVEL 4 - 6 Oxycodone HCl (Roxicodone -) 10 mg PO Q4H PRN PRN Reason: PAIN LEVEL 7 - 10 Last Admin: 10/02/17 10:51 Dose: 10 mg Sevelamer Carbonate (Renvela -) 1,600 mg PO TIDCM [facility] Last Admin: 10/02/17 08:50 Dose: 1,600 mg Trazodone HCl (Desyrel -) 300 mg PO HS [facility] Last Admin: 10/01/17 21:24 Dose: 300 mg - Objective Vital Signs: Vital Signs Temperature 98.8 F 10/02/17 07:16 Pulse Rate 73 10/02/17 12:35 Respiratory Rate 18 10/02/17 12:35 Blood Pressure 97/58 10/02/17 12:35 O2 Sat by Pulse Oximetry (%) 98 10/01/17 21:00 Constitutional: Yes: No Distress, Calm Cardiovascular: Yes: Regular Rate and Rhythm Respiratory: Yes: Regular, CTA Bilaterally Gastrointestinal: Yes: Normal Bowel Sounds, Soft Musculoskeletal: Yes: WNL Extremities: Yes: WNL Neurological: Yes: Alert, Oriented Psychiatric: Yes: Alert, Oriented Labs: CBC, BMP 10/02/17 06:00 10/02/17 06:00 INR, PTT INR 1.14 (0.82-1.09) 09/25/17 10:38 Assessment/Plan patient just coming back form [facility] also received a dose of dapto gm positive bacteremia esrd fever hyperkalemia hyponatremia pericardial effusion plan continue dapto will repeat blood cx if remains positive then will discuss with vascular surgery rest continue current mgmt
--- NOTE | 2017-10-02 13:53 | PN ---
Physical Exam: SUBJECTIVE: Patient seen and examined in HD. He feels a bit hypoglycemic, sandwich and crackers given. Lidocaine patch helped OBJECTIVE: Vital Signs Period Temp Pulse Resp BP Sys/Gutierrez Pulse Ox Last 24 Hr 97.9 F-98.8 F 73-81 18-20 83-128/52-66 98 PE Neuro: alert, awake, cn 2-12intact HEENT: R sided neck tenderness Pulm: clear anteriorly CV: s1 s2 rrr no mrg Abd: s nt nd + bs Ext: warm, LLE bka, rle no edema Skin: R groin shiley Laboratory Results - last 24 hr 10/01/17 10/01/17 10/02/17 18:11 21:26 06:00 WBC 16.5 H RBC 2.46 L Hgb 7.2 L Hct 22.2 L MCV 90.4 MCH 29.4 MCHC 32.6 RDW 16.5 H Plt Count 364 MPV 9.4 Absolute Neuts (auto) 14.3 Neutrophils % 86.7 H Lymphocytes % 6.8 L Monocytes % 5.2 Eosinophils % 1.1 Basophils % 0.2 Nucleated RBC % 0 Sodium Potassium Chloride Carbon Dioxide Anion Gap BUN Creatinine POC Glucometer 275 278 Random Glucose Calcium Vancomycin Pre-Dose Blood Type Antibody Screen Crossmatch 10/02/17 10/02/17 10/02/17 06:00 06:00 11:10 WBC RBC Hgb Hct MCV MCH MCHC RDW Plt Count MPV Absolute Neuts (auto) Neutrophils % Lymphocytes % Monocytes % Eosinophils % Basophils % Nucleated RBC % Sodium 129 L Potassium 4.0 Chloride 91 L Carbon Dioxide 19 L D Anion Gap 19 H BUN 95 H Creatinine 9.7 H* POC Glucometer 222 Random Glucose 185 H Calcium 7.3 L Vancomycin Pre-Dose 19.47 H* D Blood Type Antibody Screen Crossmatch 10/02/17 11:10 WBC RBC Hgb Hct MCV MCH MCHC RDW Plt Count MPV Absolute Neuts (auto) Neutrophils % Lymphocytes % Monocytes % Eosinophils % Basophils % Nucleated RBC % Sodium Potassium Chloride Carbon Dioxide Anion Gap BUN Creatinine POC Glucometer Random Glucose Calcium Vancomycin Pre-Dose Blood Type B POSITIVE Antibody Screen Negative Crossmatch See Detail Active Medications Generic Name Dose Route Start Last Admin Trade Name Freq PRN Reason Stop Dose Admin Acetaminophen 650 mg 10/01/17 05:28 10/02/17 10:50 Tylenol - PO 650 mg Q6H PRN Administration PAIN LEVEL 7 - 10 Albuterol/Ipratropium 1 amp 10/01/17 08:00 10/02/17 11:54 Duoneb - NEB Not Given RQID I[facility] Doxazosin Mesylate 4 mg 10/01/17 10:00 10/02/17 09:52 Cardura - PO 4 mg DAILY I[facility] Administration Gabapentin 100 mg 10/01/17 10:00 10/02/17 09:50 Neurontin - PO 100 mg BID IGGY Administration Heparin Sodium (Porcine) 5,000 unit 10/01/17 06:00 10/02/17 05:53 Heparin - SQ 5,000 unit TID I[facility] Administration Piperacillin Sod/Tazobactam 50 mls @ 100 mls/hr 10/01/17 10:00 10/02/17 09:51 Sod 2.25 gm/ Dextrose IVPB 100 mls/hr Q8H-IV [facility] Administration Protocol Sodium Chloride 250 mls @ 3,000 mls/hr 10/02/17 10:35 Normal Saline - IV 10/03/17 10:35 PRN PRN Hypotension during Dialysis Daptomycin 500 mg/ Sodium 100 mls @ 200 mls/hr 10/04/17 10:00 Chloride IVPB MoWeFr@1000 [facility] Protocol Insulin Aspart 1 vial 10/01/17 07:00 10/02/17 06:11 Novolog Vial Sliding Scale - SQ 6 units ACHS [facility] Administration Protocol Insulin Detemir 10 units 10/01/17 07:00 10/02/17 06:13 Levemir Vial SQ 10 units DAILY@0700 [facility] Administration Lidocaine 1 patch 10/01/17 11:45 10/02/17 09:50 Lidoderm Patch - TP 1 patch DAILY [facility] Administration Metoprolol Tartrate 50 mg 10/01/17 10:00 10/02/17 09:50 Lopressor - PO 50 mg BID [facility] Administration Miscellaneous 1 each 10/01/17 22:00 10/01/17 21:24 Lidoderm Patch Removal MC 1 each DAILY@2200 [facility] Administration Oxycodone HCl 5 mg 10/01/17 05:28 Roxicodone - PO Q4H PRN PAIN LEVEL 4 - 6 Oxycodone HCl 10 mg 10/01/17 05:28 10/02/17 10:51 Roxicodone - PO 10 mg Q4H PRN Administration PAIN LEVEL 7 - 10 Sevelamer Carbonate 1,600 mg 10/01/17 08:00 10/02/17 08:50 Renvela - PO 1,600 mg TIDCM [facility] Administration Trazodone HCl 300 mg 10/01/17 22:00 10/01/17 21:24 Desyrel - PO 300 mg HS [facility] Administration Microbiology 09/29/17 14:49 Blood Culture - Final Blood - Peripheral Venous Mr S Aureus 09/29/17 15:20 Blood Culture - Final Blood - Peripheral Venous Mr S Aureus 09/28/17 06:15 Blood Culture - Final Blood - Peripheral Venous Mr S Aureus 09/28/17 06:00 Blood Culture - Final Blood - Peripheral Venous S Aureus Assessment: 61 year old male with pmhx of DM II, HTN, ESRD (Tues, Th, Sat), osteoarthritis and left below the knee amputation presented to the ED with + BC from permacat site following HD. Plan: 1. MSSA/MRSA bacteremia - Likely d/t indwelling HD catheter, since removed - CHAKA negative for vegetation - Re send blood cx - Continue zosyn, dapto - ID seeing 2. Klebsiella UTI - Abx above 3. R IJ thrombus - Per vascular no AC at this time 4. ESRD - HD today - Cont Renvela 5. HTN - Controlled - Lopressor 50mg BID 6. Acute on chronic anemia - No indication for transfusion at this time 7. DM II - ISS, BGM ACHS - Levemir 10units daily 8. DVT - heparin sq Visit type - Emergency Visit Emergency Visit: Yes ED Registration Date: 09/24/17 Care time: The patient presented to the Emergency Department on the above date and was hospitalized for further evaluation of their emergent condition. - New Patient This patient is new to me today: No - Critical Care Critical Care patient: No
--- NOTE | 2017-10-02 14:57 | PN ---
Progress Note, Physician History of Present Illness: pulmonary awake,on hd,c/o sob. CHAKA -vegetations - Current Medication List Current Medications: Active Medications Acetaminophen (Tylenol -) 650 mg PO Q6H PRN PRN Reason: PAIN LEVEL 7 - 10 Last Admin: 10/02/17 10:50 Dose: 650 mg Albuterol/Ipratropium (Duoneb -) 1 amp NEB RQID [facility] Last Admin: 10/02/17 11:54 Dose: Not Given Doxazosin Mesylate (Cardura -) 4 mg PO DAILY [facility] Last Admin: 10/02/17 09:52 Dose: 4 mg Gabapentin (Neurontin -) 100 mg PO BID [facility] Last Admin: 10/02/17 09:50 Dose: 100 mg Heparin Sodium (Porcine) (Heparin -) 5,000 unit SQ TID [facility] Last Admin: 10/02/17 14:21 Dose: Not Given Piperacillin Sod/Tazobactam (Sod 2.25 gm/ Dextrose) 50 mls @ 100 mls/hr IVPB Q8H-IV [facility]; Protocol Last Admin: 10/02/17 09:51 Dose: 100 mls/hr Sodium Chloride (Normal Saline -) 250 mls @ 3,000 mls/hr IV PRN PRN PRN Reason: Hypotension during Dialysis Stop: 10/03/17 10:35 Daptomycin 500 mg/ Sodium (Chloride) 100 mls @ 200 mls/hr IVPB MoWeFr@1000 [facility] ; Protocol Insulin Aspart (Novolog Vial Sliding Scale -) 1 vial SQ ACHS [facility]; Protocol Last Admin: 10/02/17 11:21 Dose: Not Given Insulin Detemir (Levemir Vial) 10 units SQ DAILY@0700 [facility] Last Admin: 10/02/17 06:13 Dose: 10 units Lidocaine (Lidoderm Patch -) 1 patch TP DAILY [facility] Last Admin: 10/02/17 09:50 Dose: 1 patch Metoprolol Tartrate (Lopressor -) 50 mg PO BID [facility] Last Admin: 10/02/17 09:50 Dose: 50 mg Miscellaneous (Lidoderm Patch Removal) 1 each MC DAILY@2200 [facility] Last Admin: 10/01/17 21:24 Dose: 1 each Oxycodone HCl (Roxicodone -) 5 mg PO Q4H PRN PRN Reason: PAIN LEVEL 4 - 6 Oxycodone HCl (Roxicodone -) 10 mg PO Q4H PRN PRN Reason: PAIN LEVEL 7 - 10 Last Admin: 10/02/17 10:51 Dose: 10 mg Sevelamer Carbonate (Renvela -) 1,600 mg PO TIDCM [facility] Last Admin: 10/02/17 12:20 Dose: Not Given Trazodone HCl (Desyrel -) 300 mg PO HS [facility] Last Admin: 10/01/17 21:24 Dose: 300 mg - Objective Vital Signs: Vital Signs Temperature 98.8 F 10/02/17 07:16 Pulse Rate 75 10/02/17 13:30 Respiratory Rate 18 10/02/17 13:30 Blood Pressure 91/64 10/02/17 13:30 O2 Sat by Pulse Oximetry (%) 98 10/01/17 21:00 Constitutional: Yes: Well Nourished, Calm Eyes: Yes: WNL HENT: Yes: WNL Neck: Yes: WNL Cardiovascular: Yes: Regular Rate and Rhythm, S1, S2 Respiratory: Yes: Diminished Gastrointestinal: Yes: Normal Bowel Sounds, Soft Extremities: Yes: Amputation (left bka) Edema: No Labs: CBC, BMP 10/02/17 06:00 10/02/17 06:00 INR, PTT INR 1.14 (0.82-1.09) 09/25/17 10:38 Problem List - Problems (1) Sepsis Code(s): A41.9 - SEPSIS, UNSPECIFIED ORGANISM Qualifiers: Sepsis type: methicillin susceptible Staphylococcus aureus Qualified Code(s ): A41.01 - Sepsis due to Methicillin susceptible Staphylococcus aureus (2) ESRD (end stage renal disease) Code(s): N18.6 - END STAGE RENAL DISEASE (3) Diabetes mellitus, insulin dependent (IDDM), controlled Code(s): E11.9 - TYPE 2 DIABETES MELLITUS WITHOUT COMPLICATIONS; Z79.4 - USP (CURRENT) USE OF INSULIN (4) Amputation, below knee, unilateral, traumatic Code(s): S88.119A - COMPLETE TRAUM AMP AT LEV BETW KN & ANKL, UNSP LOW LEG, INIT (5) Bacteremia due to Gram-positive bacteria Code(s): R78.81 - BACTEREMIA (6) Dyspnea Code(s): R06.00 - DYSPNEA, UNSPECIFIED (7) Acute dyspnea Code(s): R06.00 - DYSPNEA, UNSPECIFIED (8) Chest congestion Code(s): R09.89 - OTH SYMPTOMS AND SIGNS INVOLVING THE CIRC AND RESP SYSTEMS (9) Peripheral vascular disease due to secondary diabetes Code(s): E13.51 - OTH DIABETES W DIABETIC PERIPHERAL ANGIOPATHY W/O GANGRENE (10) HTN (hypertension) Code(s): I10 - ESSENTIAL (PRIMARY) HYPERTENSION Qualifiers: Hypertension type: essential hypertension Qualified Code(s): I10 - Essential (primary) hypertension Assessment/Plan IMP MRSA BACTEREMIA/SEPSIS DYSPNEA ESRD ON HD PVD S/P LEFT BKA IDDM HTN PLAN IV ABX PER ID RIJ THROMBOSIS O2 INHALED BRONCHODILATORS F/U CHEST X-RAYS HD PER RENAL DR BAUM Problem List - Problems (1) Sepsis Code(s): A41.9 - SEPSIS, UNSPECIFIED ORGANISM (2) ESRD (end stage renal disease) Code(s): N18.6 - END STAGE RENAL DISEASE (3) Diabetes mellitus, insulin dependent (IDDM), controlled Code(s): E11.9 - TYPE 2 DIABETES MELLITUS WITHOUT COMPLICATIONS; Z79.4 - USP (CURRENT) USE OF INSULIN (4) Amputation, below knee, unilateral, traumatic Code(s): S88.119A - COMPLETE TRAUM AMP AT LEV BETW KN & ANKL, UNSP LOW LEG, INIT (5) Bacteremia due to Gram-positive bacteria Code(s): R78.81 - BACTEREMIA (6) Dyspnea Code(s): R06.00 - DYSPNEA, UNSPECIFIED (7) Acute dyspnea Code(s): R06.00 - DYSPNEA, UNSPECIFIED (8) Chest congestion Code(s): R09.89 - OTH SYMPTOMS AND SIGNS INVOLVING THE CIRC AND RESP SYSTEMS (9) Peripheral vascular disease due to secondary diabetes Code(s): E13.51 - OTH DIABETES W DIABETIC PERIPHERAL ANGIOPATHY W/O GANGRENE (10) HTN (hypertension) Code(s): I10 - ESSENTIAL (PRIMARY) HYPERTENSION Qualifiers: Hypertension type: essential hypertension Qualified Code(s): I10 - Essential (primary) hypertension
--- NOTE | 2017-10-02 14:57 | PN ---
Progress Note, Physician History of Present Illness: Afebrile, tolerating HD, last blood cultures sent showed MRSA. - Current Medication List Current Medications: Active Medications Acetaminophen (Tylenol -) 650 mg PO Q6H PRN PRN Reason: PAIN LEVEL 7 - 10 Last Admin: 10/02/17 10:50 Dose: 650 mg Albuterol/Ipratropium (Duoneb -) 1 amp NEB RQID [facility] Last Admin: 10/02/17 11:54 Dose: Not Given Doxazosin Mesylate (Cardura -) 4 mg PO DAILY [facility] Last Admin: 10/02/17 09:52 Dose: 4 mg Gabapentin (Neurontin -) 100 mg PO BID [facility] Last Admin: 10/02/17 09:50 Dose: 100 mg Heparin Sodium (Porcine) (Heparin -) 5,000 unit SQ TID [facility] Last Admin: 10/02/17 14:21 Dose: Not Given Piperacillin Sod/Tazobactam (Sod 2.25 gm/ Dextrose) 50 mls @ 100 mls/hr IVPB Q8H-IV [facility]; Protocol Last Admin: 10/02/17 09:51 Dose: 100 mls/hr Sodium Chloride (Normal Saline -) 250 mls @ 3,000 mls/hr IV PRN PRN PRN Reason: Hypotension during Dialysis Stop: 10/03/17 10:35 Daptomycin 500 mg/ Sodium (Chloride) 100 mls @ 200 mls/hr IVPB MoWeFr@1000 [facility] ; Protocol Insulin Aspart (Novolog Vial Sliding Scale -) 1 vial SQ ACHS [facility]; Protocol Last Admin: 10/02/17 11:21 Dose: Not Given Insulin Detemir (Levemir Vial) 10 units SQ DAILY@0700 [facility] Last Admin: 10/02/17 06:13 Dose: 10 units Lidocaine (Lidoderm Patch -) 1 patch TP DAILY [facility] Last Admin: 10/02/17 09:50 Dose: 1 patch Metoprolol Tartrate (Lopressor -) 50 mg PO BID [facility] Last Admin: 10/02/17 09:50 Dose: 50 mg Miscellaneous (Lidoderm Patch Removal) 1 each MC DAILY@2200 [facility] Last Admin: 10/01/17 21:24 Dose: 1 each Oxycodone HCl (Roxicodone -) 5 mg PO Q4H PRN PRN Reason: PAIN LEVEL 4 - 6 Oxycodone HCl (Roxicodone -) 10 mg PO Q4H PRN PRN Reason: PAIN LEVEL 7 - 10 Last Admin: 10/02/17 10:51 Dose: 10 mg Sevelamer Carbonate (Renvela -) 1,600 mg PO TIDCM [facility] Last Admin: 10/02/17 12:20 Dose: Not Given Trazodone HCl (Desyrel -) 300 mg PO HS [facility] Last Admin: 10/01/17 21:24 Dose: 300 mg - Objective Vital Signs: Vital Signs Temperature 98.8 F 10/02/17 07:16 Pulse Rate 75 10/02/17 13:30 Respiratory Rate 18 10/02/17 13:30 Blood Pressure 91/64 10/02/17 13:30 O2 Sat by Pulse Oximetry (%) 98 10/01/17 21:00 Constitutional: Yes: No Distress, Calm Neck: Yes: Supple Cardiovascular: Yes: Regular Rate and Rhythm Respiratory: Yes: Regular, Diminished Gastrointestinal: Yes: Normal Bowel Sounds, Soft Edema: No Labs: CBC, BMP 10/02/17 06:00 10/02/17 06:00 INR, PTT INR 1.14 (0.82-1.09) 09/25/17 10:38 Problem List - Problems (1) Bacteremia due to Gram-positive bacteria Code(s): R78.81 - BACTEREMIA (2) ESRD (end stage renal disease) Code(s): N18.6 - END STAGE RENAL DISEASE (3) Sepsis Code(s): A41.9 - SEPSIS, UNSPECIFIED ORGANISM Qualifiers: Sepsis type: methicillin susceptible Staphylococcus aureus Qualified Code(s ): A41.01 - Sepsis due to Methicillin susceptible Staphylococcus aureus (4) Diabetes mellitus, insulin dependent (IDDM), controlled Code(s): E11.9 - TYPE 2 DIABETES MELLITUS WITHOUT COMPLICATIONS; Z79.4 - NURSING HOME (CURRENT) USE OF INSULIN (5) Hyponatremia Code(s): E87.1 - HYPO-OSMOLALITY AND HYPONATREMIA (6) Anemia Code(s): D64.9 - ANEMIA, UNSPECIFIED Qualifiers: Anemia type: due to chronic kidney disease (7) Dialysis patient Code(s): Z99.2 - DEPENDENCE ON RENAL DIALYSIS (8) S/P amputation Code(s): Z89.9 - ACQUIRED ABSENCE OF LIMB, UNSPECIFIED (9) Type 2 diabetes mellitus with foot ulcer Code(s): E11.621 - TYPE 2 DIABETES MELLITUS WITH FOOT ULCER; L97.509 - NON- PRESSURE CHRONIC ULCER OTH PRT UNSP FOOT W UNSP SEVERITY (10) Internal jugular vein thrombosis Code(s): I82.C19 - ACUTE EMBOLISM AND THROMBOSIS OF UNSP INTERNAL JUGULAR VEIN Qualifiers: Laterality: right Qualified Code(s): I82.C11 - Acute embolism and thrombosis of right internal jugular vein Assessment/Plan 09/30/2017 CHAKA: Normal biventricular size and fxn, muld [place], [place], [place], no SIS thrombus or vegetations 1. MRSA bacteremia suspect line sepsis from indwelling dialysis catheter - catheter removed - intermittently febrile due to sepsis 2. ESRD on HD, suspected diabetic nephropathy with hyponatremia 3. 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 Type 2 DM 5. HTN/HCVD 6. PAD 7. Anemia of chronic kidney disease 8. Bacteruria 9. Right IJ thrombus probably catheter related, possible septic 10. PAD s/p left BKA PLAN: 1. Antibiotic course per ID, observe for clearance post catheter removal, repeat surveillance cx. CHAKA shows no evidence of vegetations 2. HD via left femoral groin line 3. Not on anticoagulation at this time with Right IJ thromus as per Vascular surgery 4. Continue Lopressor 50 bid, Cardura 4 qd
--- NOTE | 2017-10-02 17:40 | PN ---
Progress Note (short form) - Note Progress Note: Renal Follow up for ESRD on HD Pt seen and examined during dialysis BP low, goal UF is 3L no fevers has right sided neck pain and PEREZ no confusion, focal weakness Vital Signs Temperature 98.1 F 10/02/17 17:13 Pulse Rate 82 10/02/17 17:13 Respiratory Rate 20 10/02/17 17:13 Blood Pressure 134/58 10/02/17 17:13 O2 Sat by Pulse Oximetry (%) 98 10/01/17 21:00 Intake & Output 09/29/17 09/30/17 10/01/17 10/02/17 23:59 23:59 23:59 23:59 Intake Total 50 730 1500 1250 Output Total 50 0 Balance 50 680 1500 1250 Weight 78.9 kg 80.3 kg 82.639 kg 82.185 kg NAD awake and alert RRR CTA soft NT/ND no LE edema CBC, BMP 10/02/17 06:00 10/02/17 06:00 Current Medications Acetaminophen (Tylenol -) 650 mg PO Q6H PRN PRN Reason: PAIN LEVEL 7 - 10 Last Admin: 10/02/17 10:50 Dose: 650 mg Albuterol/Ipratropium (Duoneb -) [address] [facility] Last Admin: 10/02/17 16:20 Dose: 1 amp Doxazosin Mesylate (Cardura -) [address] [facility] Last Admin: 10/02/17 09:52 Dose: 4 mg Gabapentin (Neurontin -) [address] [facility] Last Admin: 10/02/17 09:50 Dose: 100 mg Heparin Sodium (Porcine) (Heparin -) 5,[address] [facility] Last Admin: 10/02/17 14:21 Dose: Not Given Piperacillin Sod/Tazobactam (Sod 2.25 gm/ Dextrose) 50 mls @ 100 mls/hr IVPB Q8H-IV [facility]; Protocol Last Admin: 10/02/17 09:51 Dose: 100 mls/hr Sodium Chloride (Normal Saline -) 250 mls @ 3,000 mls/hr IV PRN PRN PRN Reason: Hypotension during Dialysis Stop: 10/03/17 10:35 Daptomycin 500 mg/ Sodium (Chloride) 100 mls @ 200 mls/hr IVPB MoWeFr@1000 [facility] ; Protocol Insulin Aspart (Novolog Vial Sliding Scale -) [address] [facility]; Protocol Last Admin: 10/02/17 11:21 Dose: Not Given Insulin Detemir (Levemir Vial) 10 units SQ DAILY@0700 [facility] Last Admin: 10/02/17 06:13 Dose: 10 units Lidocaine (Lidoderm Patch -) [address] [facility] Last Admin: 10/02/17 09:50 Dose: 1 patch Metoprolol Tartrate (Lopressor -) [address] [facility] Last Admin: 10/02/17 09:50 Dose: 50 mg Miscellaneous (Lidoderm Patch Removal) 1 each MC DAILY@2200 [facility] Last Admin: 10/01/17 21:24 Dose: 1 each Oxycodone HCl (Roxicodone -) 5 mg PO Q4H PRN PRN Reason: PAIN LEVEL 4 - 6 Oxycodone HCl (Roxicodone -) 10 mg PO Q4H PRN PRN Reason: PAIN LEVEL 7 - 10 Last Admin: 10/02/17 10:51 Dose: 10 mg Sevelamer Carbonate (Renvela -) 1,[address] [facility] Last Admin: 10/02/17 12:20 Dose: Not Given Trazodone HCl (Desyrel -) [address] [facility] Last Admin: 10/01/17 21:24 Dose: 300 mg 62 year old AA gentleman with PMhx of ESRD on HD (TTS) secondary to suspected diabetic nephropathy, DM, Hypertension, PVD who presented outpatient blood cultures that were positive for gram positive Cocci. #ESRD on HD #Hyperkalemia #Hyponatremia #Gram + bacteremia/Sepsis #Anemia #Pericardial effusion tolerating dialysis well today will re-dose Dapto post Hd repeat cultures today not a canidace for vascular sx intervention will discuss wit IR if any thrombectomy can be done ID follow up getting PRBC transfusion with dialysis today Miguel Jansen DO
[2017-10-02] MEDS ORDERED: traZODone HCL 50 MG TABLET (FP) ONE (21:36)
[2017-10-02] MEDS: traZODone HCL 100 MG TABLET (FP) PO SCH (22:00)
[2017-10-02] MEDS: LIDOCAINE PATCH REMOVAL MC SCH (22:07)
[2017-10-03] MEDS ORDERED: PIPERACILLIN/TAZOBACTAM 2.25 GM VIAL IVPB ONE ×3 (02:15→17:48)
[2017-10-03] MEDS ORDERED: DEXTROSE 5%-WATER - 50 ML IVPB ONE ×3 (02:16→17:48)
[2017-10-03] MEDS: PIPERACILLIN/TAZOB 2.25 GM 2.25 GM in DEXTROSE 5%-WATER - 50 ML IVPB SCH ×3 (02:24→17:57)
[2017-10-03] MEDS ORDERED: DAPTOMYCIN 500 MG in SODIUM CHLORIDE 50 ML IVPB ONE (06:00)
[2017-10-03] MEDS ORDERED: DAPTOMYCIN 250 MG in SODIUM CHLORIDE 50 ML IVPB ONE (06:00)
[2017-10-03] MEDS ORDERED: INSULIN (NOVOLOG) ASPART 100 UNITS/ML 10ML VIAL ONE ×3 (06:12→11:48)
[2017-10-03] MEDS: oxyCODONE HCL 5 MG TABLET PO PRN ×2 (06:21→18:31)
[2017-10-03] MEDS: HEPARIN NA (PORCINE) 5,000 UNITS/ML 1ML VIAL SQ SCH ×2 (06:24→14:57)
[2017-10-03] MEDS: INSULIN SLIDING SCALE (NOVOLOG) 1 VIAL SQ SCH ×4 (06:33→21:47)
[2017-10-03] MEDS: INSULIN (LEVEMIR) 100 UNITS/ML UNITS SQ SCH (06:33)
[2017-10-03] MEDS: ALBUTEROL SO4 2.5/IPRATROPIUM 0.5 INH SOL 3 ML VIAL.NEB. NEB SCH ×4 (07:30→20:14)
--- NOTE | 2017-10-03 07:52 | PN ---
Progress Note (short form) - Note Progress Note: Patient s/p right femoral shiley 10/02/17 followed by HD w/ removal of 1.5L. Patient was hypotensive during session. Patient cont to c/o PEREZ. Head/Neck CT identified right IJ thrombus (recently had rt ij permacath removed). Problem List - Problems (1) ESRD (end stage renal disease) Assessment/Plan: Dr. Daly spoke with Dr. Jansen regarding clot in right IJ --> see if IR can perform suction thrmobectomy Cont HD via shiley PRN Awaiting negative blood cultures LUE limb preservation COnt medical management Vascular surgery to cont following Code(s): N18.6 - END STAGE RENAL DISEASE
[2017-10-03] MEDS ORDERED: INSULIN (LEVEMIR) 100 UNITS/ML UNITS SQ ONE (08:17)
[2017-10-03] MEDS: SEVELAMER CARBONATE 800 MG TAB (FP) PO SCH ×3 (08:26→18:01)
[2017-10-03] MEDS ORDERED: PT OWN MED DRAWER 7, Y5N ONE (09:50)
[2017-10-03] MEDS: METOPROLOL TARTRATE 50 MG TABLET (FP) PO SCH ×2 (09:55→21:43)
[2017-10-03] MEDS: DOXAZOSIN MESYLATE 4 MG TABLET PO SCH (09:55)
[2017-10-03] MEDS: LIDOCAINE 5% TOPICAL PATCH TP SCH ×2 (09:55→10:06)
[2017-10-03] MEDS: GABAPENTIN 100 MG CAPSULE (FP) PO SCH ×2 (09:55→21:43)
[2017-10-03] MEDS: ACETAMINOPHEN 325 MG TABLET (FP) PO PRN (10:02)
--- NOTE | 2017-10-03 10:32 | PN ---
Progress Note (short form) - Note Progress Note: PULMONARY No fevers recorded. c/o headache, requesting that his oxycodone be increased. Last Vital Signs Temp Pulse Resp BP Pulse Ox 98.2 F 75 20 127/58 96 10/03/17 06:48 10/03/17 06:48 10/03/17 06:48 10/03/17 06:48 10/02/17 21:00 Gen: NAD at rest Heart: RRR Lung: decreased breath sounds at the bases Abd: soft, nontender Ext: L BKA CBC, BMP 10/02/17 06:00 10/02/17 06:00 Active Medications Acetaminophen (Tylenol -) 650 mg PO Q6H PRN PRN Reason: PAIN LEVEL 7 - 10 Last Admin: 10/03/17 10:02 Dose: 650 mg Albuterol/Ipratropium (Duoneb -) 1 amp NEB RQID [facility] Last Admin: 10/03/17 07:30 Dose: Not Given Doxazosin Mesylate (Cardura -) 4 mg PO DAILY [facility] Last Admin: 10/03/17 09:55 Dose: 4 mg Gabapentin (Neurontin -) 100 mg PO BID [facility] Last Admin: 10/03/17 09:55 Dose: 100 mg Heparin Sodium (Porcine) (Heparin -) 5,000 unit SQ TID [facility] Last Admin: 10/03/17 06:24 Dose: 5,000 unit Piperacillin Sod/Tazobactam (Sod 2.25 gm/ Dextrose) 50 mls @ 100 mls/hr IVPB Q8H-IV [facility]; Protocol Last Admin: 10/03/17 09:55 Dose: 100 mls/hr Sodium Chloride (Normal Saline -) 250 mls @ 3,000 mls/hr IV PRN PRN PRN Reason: Hypotension during Dialysis Stop: 10/03/17 10:35 Daptomycin 500 mg/ Sodium (Chloride) 100 mls @ 200 mls/hr IVPB MoWeFr@1000 [facility] ; Protocol Sodium Chloride (Normal Saline -) 250 mls @ 3,000 mls/hr IV PRN PRN PRN Reason: Hypotension during Dialysis Stop: 10/03/17 17:40 Daptomycin 250 mg/ Sodium (Chloride) 50 mls @ 50 mls/hr IVPB ONCE ONE; Protocol Stop: 10/03/17 06:59 Insulin Aspart (Novolog Vial Sliding Scale -) 1 vial SQ [facility]; Protocol Last Admin: 10/03/17 06:33 Dose: 4 units Insulin Detemir (Levemir Vial) 10 units SQ DAILY@0700 [facility] Last Admin: 10/03/17 06:33 Dose: 10 units Lidocaine (Lidoderm Patch -) 1 patch TP DAILY [facility] Last Admin: 10/03/17 10:06 Dose: Not Given Metoprolol Tartrate (Lopressor -) 50 mg PO BID [facility] Last Admin: 10/03/17 09:55 Dose: 50 mg Miscellaneous (Lidoderm Patch Removal) 1 each MC DAILY@2200 [facility] Last Admin: 10/02/17 22:07 Dose: 1 each Oxycodone HCl (Roxicodone -) 5 mg PO Q4H PRN PRN Reason: PAIN LEVEL 4 - 6 Oxycodone HCl (Roxicodone -) 10 mg PO Q4H PRN PRN Reason: PAIN LEVEL 7 - 10 Last Admin: 10/03/17 06:21 Dose: 10 mg Sevelamer Carbonate (Renvela -) 1,600 mg PO TIDCM [facility] Last Admin: 10/03/17 08:26 Dose: 1,600 mg Trazodone HCl (Desyrel -) 300 mg PO HS [facility] Last Admin: 10/02/17 22:00 Dose: 300 mg A/P MRSA Bacteremia Sepsis Pericardial Effusion ESRD on HD HTN DM PAD s/p L BKA - continue antibiotics - surveillance cultures until cleared - HD per renal - monitor H/H - O2 as needed - inhaled bronchodilators - DVT prophylaxis
--- NOTE | 2017-10-03 11:42 | PN ---
Progress Note, Physician History of Present Illness: Afebrile, last blood cultures sent showed MRSA. - Current Medication List Current Medications: Active Medications Acetaminophen (Tylenol -) 650 mg PO Q6H PRN PRN Reason: PAIN LEVEL 7 - 10 Last Admin: 10/03/17 10:02 Dose: 650 mg Albuterol/Ipratropium (Duoneb -) 1 amp NEB RQID [facility] Last Admin: 10/03/17 07:30 Dose: Not Given Doxazosin Mesylate (Cardura -) 4 mg PO DAILY [facility] Last Admin: 10/03/17 09:55 Dose: 4 mg Gabapentin (Neurontin -) 100 mg PO BID [facility] Last Admin: 10/03/17 09:55 Dose: 100 mg Heparin Sodium (Porcine) (Heparin -) 5,000 unit SQ TID [facility] Last Admin: 10/03/17 06:24 Dose: 5,000 unit Piperacillin Sod/Tazobactam (Sod 2.25 gm/ Dextrose) 50 mls @ 100 mls/hr IVPB Q8H-IV [facility]; Protocol Last Admin: 10/03/17 09:55 Dose: 100 mls/hr Daptomycin 500 mg/ Sodium (Chloride) 100 mls @ 200 mls/hr IVPB MoWeFr@1000 [facility] ; Protocol Sodium Chloride (Normal Saline -) 250 mls @ 3,000 mls/hr IV PRN PRN PRN Reason: Hypotension during Dialysis Stop: 10/03/17 17:40 Daptomycin 250 mg/ Sodium (Chloride) 50 mls @ 50 mls/hr IVPB ONCE ONE; Protocol Stop: 10/03/17 06:59 Insulin Aspart (Novolog Vial Sliding Scale -) 1 vial SQ ACHS [facility]; Protocol Last Admin: 10/03/17 06:33 Dose: 4 units Insulin Detemir (Levemir Vial) 10 units SQ DAILY@0700 [facility] Last Admin: 10/03/17 06:33 Dose: 10 units Lidocaine (Lidoderm Patch -) 1 patch TP DAILY [facility] Last Admin: 10/03/17 10:06 Dose: Not Given Metoprolol Tartrate (Lopressor -) 50 mg PO BID [facility] Last Admin: 10/03/17 09:55 Dose: 50 mg Miscellaneous (Lidoderm Patch Removal) 1 each MC DAILY@2200 [facility] Last Admin: 10/02/17 22:07 Dose: 1 each Oxycodone HCl (Roxicodone -) 5 mg PO Q4H PRN PRN Reason: PAIN LEVEL 4 - 6 Oxycodone HCl (Roxicodone -) 10 mg PO Q4H PRN PRN Reason: PAIN LEVEL 7 - 10 Last Admin: 10/03/17 06:21 Dose: 10 mg Sevelamer Carbonate (Renvela -) 1,600 mg PO TIDCM [facility] Last Admin: 10/03/17 08:26 Dose: 1,600 mg Trazodone HCl (Desyrel -) 300 mg PO HS [facility] Last Admin: 10/02/17 22:00 Dose: 300 mg - Objective Vital Signs: Vital Signs Temperature 98.2 F 10/03/17 06:48 Pulse Rate 75 10/03/17 06:48 Respiratory Rate 20 10/03/17 06:48 Blood Pressure 127/58 10/03/17 06:48 O2 Sat by Pulse Oximetry (%) 96 10/02/17 21:00 Constitutional: Yes: No Distress, Calm, Thin Neck: Yes: Supple Cardiovascular: Yes: Regular Rate and Rhythm Respiratory: Yes: Regular, CTA Bilaterally Gastrointestinal: Yes: Normal Bowel Sounds, Soft Extremities: Yes: Amputation (Left BKA) Edema: No Labs: CBC, BMP 10/02/17 06:00 10/02/17 06:00 INR, PTT INR 1.14 (0.82-1.09) 09/25/17 10:38 Problem List - Problems (1) Bacteremia due to Gram-positive bacteria Code(s): R78.81 - BACTEREMIA (2) ESRD (end stage renal disease) Code(s): N18.6 - END STAGE RENAL DISEASE (3) Sepsis Code(s): A41.9 - SEPSIS, UNSPECIFIED ORGANISM Qualifiers: Sepsis type: methicillin susceptible Staphylococcus aureus Qualified Code(s ): A41.01 - Sepsis due to Methicillin susceptible Staphylococcus aureus (4) Diabetes mellitus, insulin dependent (IDDM), controlled Code(s): E11.9 - TYPE 2 DIABETES MELLITUS WITHOUT COMPLICATIONS; Z79.4 - SNF (CURRENT) USE OF INSULIN (5) Hyponatremia Code(s): E87.1 - HYPO-OSMOLALITY AND HYPONATREMIA (6) Anemia Code(s): D64.9 - ANEMIA, UNSPECIFIED Qualifiers: Anemia type: due to chronic kidney disease (7) Dialysis patient Code(s): Z99.2 - DEPENDENCE ON RENAL DIALYSIS (8) S/P amputation Code(s): Z89.9 - ACQUIRED ABSENCE OF LIMB, UNSPECIFIED (9) Type 2 diabetes mellitus with foot ulcer Code(s): E11.621 - TYPE 2 DIABETES MELLITUS WITH FOOT ULCER; L97.509 - NON- PRESSURE CHRONIC ULCER OTH PRT UNSP FOOT W UNSP SEVERITY (10) Internal jugular vein thrombosis Code(s): I82.C19 - ACUTE EMBOLISM AND THROMBOSIS OF UNSP INTERNAL JUGULAR VEIN Qualifiers: Laterality: right Qualified Code(s): I82.C11 - Acute embolism and thrombosis of right internal jugular vein Assessment/Plan 09/30/2017 [facility]: Normal biventricular size and fxn, mild AR, IL, MR, no SIS thrombus or vegetations 1. MRSA bacteremia suspect line sepsis from indwelling dialysis catheter - catheter removed - intermittently febrile due to sepsis 2. ESRD on HD, suspected diabetic nephropathy with hyponatremia 3. 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 Type 2 DM 5. HTN/HCVD 6. PAD 7. Anemia of chronic kidney disease 8. Bacteruria 9. Right IJ thrombus probably catheter related, possible septic 10. PAD s/p left BKA PLAN: 1. Antibiotic course per ID, observe for clearance post catheter removal, repeat surveillance cx. CHAKA shows no evidence of vegetations 2. HD via right femoral Shiley 3. Consideration for Right IJ thrombectomy by IR 4. Continue Lopressor 50 bid, Cardura 4 qd
--- NOTE | 2017-10-03 14:39 | PN ---
Progress Note, Physician History of Present Illness: no new issues continues to be afebrile improving - Current Medication List Current Medications: Active Medications Acetaminophen (Tylenol -) 650 mg PO Q6H PRN PRN Reason: PAIN LEVEL 7 - 10 Last Admin: 10/03/17 10:02 Dose: 650 mg Albuterol/Ipratropium (Duoneb -) 1 amp NEB RQID [facility] Last Admin: 10/03/17 07:30 Dose: Not Given Doxazosin Mesylate (Cardura -) 4 mg PO DAILY [facility] Last Admin: 10/03/17 09:55 Dose: 4 mg Gabapentin (Neurontin -) 100 mg PO BID [facility] Last Admin: 10/03/17 09:55 Dose: 100 mg Heparin Sodium (Porcine) (Heparin -) 5,000 unit SQ TID [facility] Last Admin: 10/03/17 06:24 Dose: 5,000 unit Piperacillin Sod/Tazobactam (Sod 2.25 gm/ Dextrose) 50 mls @ 100 mls/hr IVPB Q8H-IV [facility]; Protocol Last Admin: 10/03/17 09:55 Dose: 100 mls/hr Daptomycin 500 mg/ Sodium (Chloride) 100 mls @ 200 mls/hr IVPB MoWeFr@1000 [facility] ; Protocol Sodium Chloride (Normal Saline -) 250 mls @ 3,000 mls/hr IV PRN PRN PRN Reason: Hypotension during Dialysis Stop: 10/03/17 17:40 Insulin Aspart (Novolog Vial Sliding Scale -) 1 vial SQ ACHS [facility]; Protocol Last Admin: 10/03/17 11:56 Dose: Not Given Insulin Detemir (Levemir Vial) 10 units SQ DAILY@0700 [facility] Last Admin: 10/03/17 06:33 Dose: 10 units Lidocaine (Lidoderm Patch -) 1 patch TP DAILY [facility] Last Admin: 10/03/17 10:06 Dose: Not Given Metoprolol Tartrate (Lopressor -) 50 mg PO BID [facility] Last Admin: 10/03/17 09:55 Dose: 50 mg Miscellaneous (Lidoderm Patch Removal) 1 each MC DAILY@2200 [facility] Last Admin: 10/02/17 22:07 Dose: 1 each Oxycodone HCl (Roxicodone -) 5 mg PO Q4H PRN PRN Reason: PAIN LEVEL 4 - 6 Oxycodone HCl (Roxicodone -) 10 mg PO Q4H PRN PRN Reason: PAIN LEVEL 7 - 10 Last Admin: 10/03/17 06:21 Dose: 10 mg Sevelamer Carbonate (Renvela -) 1,600 mg PO TIDCM [facility] Last Admin: 10/03/17 11:54 Dose: 1,600 mg Trazodone HCl (Desyrel -) 300 mg PO HS [facility] Last Admin: 10/02/17 22:00 Dose: 300 mg - Objective Vital Signs: Vital Signs Temperature 99.1 F 10/03/17 10:00 Pulse Rate 75 10/03/17 10:00 Respiratory Rate 20 10/03/17 10:00 Blood Pressure 125/71 10/03/17 10:00 O2 Sat by Pulse Oximetry (%) 96 10/03/17 09:00 Constitutional: Yes: No Distress, Calm HENT: Yes: Other (tenderness on rt side of the neck) Cardiovascular: Yes: Regular Rate and Rhythm Respiratory: Yes: Regular, CTA Bilaterally Gastrointestinal: Yes: Normal Bowel Sounds, Soft Musculoskeletal: Yes: WNL Extremities: Yes: WNL Integumentary: Yes: WNL Neurological: Yes: Alert, Oriented Psychiatric: Yes: Alert, Oriented Labs: CBC, BMP 10/02/17 06:00 10/02/17 06:00 INR, PTT INR 1.14 (0.82-1.09) 09/25/17 10:38 Assessment/Plan patient just coming back form [facility] also received a dose of dapto gm positive bacteremia esrd fever hyperkalemia hyponatremia pericardial effusion plan continue dapto will repeat blood cx patients pain is better continue dialysis
--- NOTE | 2017-10-03 15:24 | PN ---
Physical Exam: SUBJECTIVE: Patient seen and examined. He continues to have head pain and neck pain. He wants pain medication before HD and something to help him sleep. OBJECTIVE: Vital Signs Period Temp Pulse Resp BP Sys/Gutierrez Pulse Ox Last 24 Hr 98.0 F-99.1 F 72-82 18-20 114-134/58-71 96-96 PE Neuro: alert, awake, cn 2-12intact +PEREZ HEENT: R sided neck tenderness Pulm: clear anteriorly CV: s1 s2 rrr no mrg Abd: s nt nd + bs Ext: warm, LLE bka Skin: R groin shiley Laboratory Results - last 24 hr 10/02/17 10/02/17 10/03/17 17:48 22:00 06:17 POC Glucometer 282 298 155 10/03/17 11:56 POC Glucometer 118 Active Medications Generic Name Dose Route Start Last Admin Trade Name Freq PRN Reason Stop Dose Admin Acetaminophen 650 mg 10/01/17 05:28 10/03/17 10:02 Tylenol - PO 650 mg Q6H PRN Administration PAIN LEVEL 7 - 10 Albuterol/Ipratropium 1 amp 10/01/17 08:00 10/03/17 07:30 Duoneb - NEB Not Given RQID [facility] Doxazosin Mesylate 4 mg 10/01/17 10:00 10/03/17 09:55 Cardura - PO 4 mg DAILY [facility] Administration Gabapentin 100 mg 10/01/17 10:00 10/03/17 09:55 Neurontin - PO 100 mg BID [facility] Administration Heparin Sodium (Porcine) 1,000 unit 10/03/17 15:04 Heparin - IVPUSH PRN PRN Heparin Heparin Sodium (Porcine) 5,000 unit 10/03/17 15:04 Heparin - IVPUSH PRN PRN Heparin Piperacillin Sod/Tazobactam 50 mls @ 100 mls/hr 10/01/17 10:00 10/03/17 09:55 Sod 2.25 gm/ Dextrose IVPB 100 mls/hr Q8H-IV [facility] Administration Protocol Daptomycin 500 mg/ Sodium 100 mls @ 200 mls/hr 10/04/17 10:00 Chloride IVPB MoWeFr@1000 [facility] Protocol Sodium Chloride 250 mls @ 3,000 mls/hr 10/02/17 17:40 Normal Saline - IV 10/03/17 17:40 PRN PRN Hypotension during Dialysis Heparin Sodium/Dextrose 25,000 units in 500 mls @ 20 mls/hr 10/03/17 15:15 Heparin Infusion - IVPB TITR [facility] Protocol 1,000 UNITS/HR Insulin Aspart 1 vial 10/01/17 07:00 10/03/17 11:56 Novolog Vial Sliding Scale - SQ Not Given ACHS [facility] Protocol Insulin Detemir 10 units 10/01/17 07:00 10/03/17 06:33 Levemir Vial SQ 10 units DAILY@0700 [facility] Administration Lidocaine 1 patch 10/01/17 11:45 10/03/17 10:06 Lidoderm Patch - TP Not Given DAILY [facility] Metoprolol Tartrate 50 mg 10/01/17 10:00 10/03/17 09:55 Lopressor - PO 50 mg BID [facility] Administration Miscellaneous 1 each 10/01/17 22:00 10/02/17 22:07 Lidoderm Patch Removal MC 1 each DAILY@2200 [facility] Administration Oxycodone HCl 10 mg 10/01/17 05:28 10/03/17 06:21 Roxicodone - PO 10 mg Q4H PRN Administration PAIN LEVEL 7 - 10 Sevelamer Carbonate 1,600 mg 10/01/17 08:00 10/03/17 11:54 Renvela - PO 1,600 mg TIDCM [facility] Administration Trazodone HCl 300 mg 10/01/17 22:00 10/02/17 22:00 Desyrel - PO 300 mg HS [facility] Administration Microbiology 09/29/17 14:49 Blood - Peripheral Venous Blood Culture - Final Mr S Aureus 09/29/17 15:20 Blood - Peripheral Venous Blood Culture - Final Mr S Aureus 09/28/17 06:15 Blood - Peripheral Venous Blood Culture - Final Mr S Aureus 09/28/17 06:00 Blood - Peripheral Venous Blood Culture - Final Mr S Aureus 09/25/17 10:50 Wound Gram Stain - Final 09/25/17 10:50 Wound Wound Culture - Final Mr S Aureus 09/26/17 12:10 Sputum - Expectorated Gram Stain - Final 09/26/17 12:10 Sputum - Expectorated Sputum Culture - Final NORMAL RESPIRATORY SHERIE 09/26/17 17:35 Blood - Peripheral Venous Blood Culture - Final Presumptive Mrsa (Pbp2a Pos) 09/26/17 17:35 Blood - Peripheral Venous Blood Culture - Final Presumptive Mrsa (Pbp2a Pos) 09/24/17 11:24 Blood - Peripheral Venous Blood Culture - Final Staphylococcus Latex Coag Pos 09/24/17 11:24 Blood - Peripheral Venous Blood Culture - Final S Aureus 09/24/17 16:10 Urine - Urine Clean Catch Urine Culture - Final Klebsiella Pneumoniae Klebsiella Pneumoniae#2 Assessment: 61 year old male with pmhx of DM II, HTN, ESRD (Tues, Thurs, Sat), osteoarthritis and left below the knee amputation presented to the ED with + BC from [facility] site following HD. Plan: 1. MSSA/MRSA bacteremia - Likely d/t indwelling HD catheter, since removed - CHAKA negative for vegetation - Repeat cx today - Continue zosyn, dapto - Start heparin gtt 2. Klebsiella UTI - Abx above 3. R IJ thrombus - Start heparin gtt today - IR to decide for thrombectomy 4. ESRD - HD today, HD tomorrow - Cont Renvela - d/w renal 5. HTN - Controlled - Lopressor 50mg BID 6. Acute on chronic anemia - No indication for transfusion at this time 7. DM II - ISS, BGM ACHS - Levemir 10units daily 8. DVT - Heparin gtt Visit type - Emergency Visit Emergency Visit: Yes ED Registration Date: 09/24/17 Care time: The patient presented to the Emergency Department on the above date and was hospitalized for further evaluation of their emergent condition. - New Patient This patient is new to me today: No - Critical Care Critical Care patient: No
[2017-10-03] MEDS: HEPARIN INFUSION - 25,000 UNITS/500 ML INFUS.BAG IVPB SCH (16:22)
--- NOTE | 2017-10-03 16:46 | PN ---
Progress Note (short form) - Note Progress Note: Renal Follow up for ESRD on HD Pt seen and examined at the bedside awake and alert has right sided neck swelling and discomfort no CP, SOB, Abd pain no fevers since 09/30 Vital Signs Temperature 98.2 F 10/03/17 13:45 Pulse Rate 72 10/03/17 13:45 Respiratory Rate 20 10/03/17 13:45 Blood Pressure 114/58 10/03/17 13:45 O2 Sat by Pulse Oximetry (%) 96 10/03/17 09:00 Intake & Output 09/30/17 10/01/17 10/02/17 10/03/17 23:59 23:59 23:59 23:59 Intake Total 730 1500 1710 100 Output Total 50 0 Balance 680 1500 1710 100 Weight 80.3 kg 82.639 kg 82.185 kg 84.538 kg NAD awake and alert RRR CTA soft NT/ND no LE edema CBC, BMP 10/02/17 06:00 10/02/17 06:00 Current Medications Acetaminophen (Tylenol -) 650 mg PO Q6H PRN PRN Reason: PAIN LEVEL 7 - 10 Last Admin: 10/03/17 10:02 Dose: 650 mg Albuterol/Ipratropium (Duoneb -) 1 amp NEB RQID [facility] Last Admin: 10/03/17 15:35 Dose: Not Given Doxazosin Mesylate (Cardura -) 4 mg PO DAILY [facility] Last Admin: 10/03/17 09:55 Dose: 4 mg Gabapentin (Neurontin -) 100 mg PO BID [facility] Last Admin: 10/03/17 09:55 Dose: 100 mg Heparin Sodium (Porcine) (Heparin -) 1,000 unit IVPUSH PRN PRN PRN Reason: Heparin Heparin Sodium (Porcine) (Heparin -) 5,000 unit IVPUSH PRN PRN PRN Reason: Heparin Piperacillin Sod/Tazobactam (Sod 2.25 gm/ Dextrose) 50 mls @ 100 mls/hr IVPB Q8H-IV [facility]; Protocol Last Admin: 10/03/17 09:55 Dose: 100 mls/hr Daptomycin 500 mg/ Sodium (Chloride) 100 mls @ 200 mls/hr IVPB MoWeFr@1000 [facility] ; Protocol Sodium Chloride (Normal Saline -) 250 mls @ 3,000 mls/hr IV PRN PRN PRN Reason: Hypotension during Dialysis Stop: 10/03/17 17:40 Heparin Sodium/Dextrose (Heparin Infusion -) 25,000 units in 500 mls @ 20 mls/ hr IVPB TITR [facility]; Protocol Last Admin: 10/03/17 16:22 Dose: 1,000 units/hr, 20 mls/hr Insulin Aspart (Novolog Vial Sliding Scale -) 1 vial SQ ACHS [facility]; Protocol Last Admin: 10/03/17 11:56 Dose: Not Given Insulin Detemir (Levemir Vial) 10 units SQ DAILY@0700 [facility] Last Admin: 10/03/17 06:33 Dose: 10 units Lidocaine (Lidoderm Patch -) 1 patch TP DAILY [facility] Last Admin: 10/03/17 10:06 Dose: Not Given Metoprolol Tartrate (Lopressor -) 50 mg PO BID [facility] Last Admin: 10/03/17 09:55 Dose: 50 mg Miscellaneous (Lidoderm Patch Removal) 1 each MC DAILY@2200 [facility] Last Admin: 10/02/17 22:07 Dose: 1 each Oxycodone HCl (Roxicodone -) 10 mg PO Q4H PRN PRN Reason: PAIN LEVEL 7 - 10 Last Admin: 10/03/17 06:21 Dose: 10 mg Sevelamer Carbonate (Renvela -) 1,600 mg PO TIDCM [facility] Last Admin: 10/03/17 11:54 Dose: 1,600 mg Trazodone HCl (Desyrel -) 300 mg PO HS [facility] Last Admin: 10/02/17 22:00 Dose: 300 mg 62 year old AA gentleman with PMhx of ESRD on HD (TTS) secondary to suspected diabetic nephropathy, DM, Hypertension, PVD who presented outpatient blood cultures that were positive for gram positive Cocci. #ESRD on HD #Hyperkalemia #Hyponatremia #Gram + bacteremia/Sepsis #Anemia #Pericardial effusion dialysis deferred to tomorrow discussed case with vascular sx and interventional radiology but agree that thrombectomy at this time is not warranted and may lead to embolization of the thrombus will however given extent of thrombus and pt symptoms start a/c with heparin gtt continue Dapto, to be given after dialysis tomorrow s/p PRBC transfusion yesterday with HD, will continue ADRIAN check stool occult blood Miguel Jansen DO
[2017-10-03] MEDS: traZODone HCL 100 MG TABLET (FP) PO SCH (21:43)
[2017-10-03] MEDS: LIDOCAINE PATCH REMOVAL MC SCH (21:47)
[2017-10-04] MEDS: HEPARIN NA (PORCINE) 5,000 UNITS/ML 1ML VIAL IVPUSH PRN ×3 (00:17→17:46)
[2017-10-04] MEDS: oxyCODONE HCL 5 MG TABLET PO PRN ×4 (00:19→21:36)
[2017-10-04] MEDS: ACETAMINOPHEN 325 MG TABLET (FP) PO PRN ×4 (00:29→21:37)
[2017-10-04] MEDS ORDERED: PIPERACILLIN/TAZOBACTAM 2.25 GM VIAL IVPB ONE ×2 (00:32→12:33)
[2017-10-04] MEDS ORDERED: DEXTROSE 5%-WATER - 50 ML IVPB ONE ×2 (00:32→12:34)
[2017-10-04] MEDS: PIPERACILLIN/TAZOB 2.25 GM 2.25 GM in DEXTROSE 5%-WATER - 50 ML IVPB SCH ×4 (01:28→17:31)
[2017-10-04] MEDS: INSULIN SLIDING SCALE (NOVOLOG) 1 VIAL SQ SCH ×4 (06:35→21:41)
[2017-10-04] MEDS: INSULIN (LEVEMIR) 100 UNITS/ML UNITS SQ SCH (06:36)
[2017-10-04] MEDS: ALBUTEROL SO4 2.5/IPRATROPIUM 0.5 INH SOL 3 ML VIAL.NEB. NEB SCH ×4 (07:30→21:00)
--- NOTE | 2017-10-04 08:16 | PN ---
Progress Note (short form) - Note Progress Note: c/o PEREZ that started after HD was initiated. states he typically gets PEREZ during HD. denies CP, SOB, fever, chills, visual changes, worsening PEREZ than baseline, N /V/C/D, Current Medications Generic Name Dose Route Start Last Admin Trade Name Freq PRN Reason Stop Dose Admin Acetaminophen 650 mg 10/01/17 05:28 10/04/17 08:14 Tylenol - PO 650 mg Q6H PRN Administration PAIN LEVEL 7 - 10 Albuterol/Ipratropium 1 amp 10/01/17 08:00 10/03/17 20:14 Duoneb - NEB 1 amp RQID [facility] Administration Doxazosin Mesylate 4 mg 10/01/17 10:00 10/03/17 09:55 Cardura - PO 4 mg DAILY [facility] Administration Gabapentin 100 mg 10/01/17 10:00 10/03/17 21:43 Neurontin - PO 100 mg BID [facility] Administration Heparin Sodium (Porcine) 1,000 unit 10/03/17 15:04 10/04/17 00:17 Heparin - IVPUSH 1,000 unit PRN PRN Administration Heparin Heparin Sodium (Porcine) 5,000 unit 10/03/17 15:04 Heparin - IVPUSH PRN PRN Heparin Piperacillin Sod/Tazobactam 50 mls @ 100 mls/hr 10/01/17 10:00 10/04/17 01:28 Sod 2.25 gm/ Dextrose IVPB 100 mls/hr Q8H-IV [facility] Administration Protocol Daptomycin 500 mg/ Sodium 100 mls @ 200 mls/hr 10/04/17 10:00 Chloride IVPB MoWeFr@1000 [facility] Protocol Sodium Chloride 250 mls @ 3,000 mls/hr 10/02/17 17:40 Normal Saline - IV 10/03/17 17:40 PRN PRN Hypotension during Dialysis Heparin Sodium/Dextrose 25,000 units in 500 mls @ 20 mls/hr 10/03/17 15:15 23:40 Heparin Infusion - IVPB 1,100 units/hr TITR [facility] 22 mls/hr Titration Protocol 1,000 UNITS/HR Insulin Aspart 1 vial 10/01/17 07:00 10/04/17 06:35 Novolog Vial Sliding Scale - SQ 8 units ACHS [facility] Administration Protocol Insulin Detemir 10 units 10/01/17 07:00 10/04/17 06:36 Levemir Vial SQ 10 units DAILY@0700 [facility] Administration Lidocaine 1 patch 10/01/17 11:45 10/03/17 10:06 Lidoderm Patch - TP Not Given DAILY [facility] Metoprolol Tartrate 50 mg 10/01/17 10:00 10/03/17 21:43 Lopressor - PO 50 mg BID [facility] Administration Miscellaneous 1 each 10/01/17 22:00 10/03/17 21:47 Lidoderm Patch Removal MC 1 each DAILY@2200 [facility] Administration Oxycodone HCl 10 mg 10/01/17 05:28 10/04/17 08:13 Roxicodone - PO 10 mg Q4H PRN Administration PAIN LEVEL 7 - 10 Sevelamer Carbonate 1,600 mg 10/01/17 08:00 10/03/17 18:01 Renvela - PO 1,600 mg TIDCM [facility] Administration Trazodone HCl 300 mg 10/01/17 22:00 10/03/17 21:43 Desyrel - PO 300 mg HS [facility] Administration Last Vital Signs Temp Pulse Resp BP Pulse Ox 97.6 F 68 20 116/66 96 10/04/17 06:00 10/04/17 06:00 10/04/17 06:00 10/04/17 06:00 10/03/17 21:00 General NAD CV S1 S2 + lungs CTA anteriorly Abdomen soft NT/ND Extremities L BKA Microbiology 09/29/17 14:49 Blood - Peripheral Venous Blood Culture - Final Mr S Aureus 09/29/17 15:20 Blood - Peripheral Venous Blood Culture - Final Mr S Aureus 09/28/17 06:15 Blood - Peripheral Venous Blood Culture - Final Mr S Aureus 09/28/17 06:00 Blood - Peripheral Venous Blood Culture - Final Mr S Aureus 09/25/17 10:50 Wound Gram Stain - Final 09/25/17 10:50 Wound Wound Culture - Final Mr S Aureus 09/26/17 12:10 Sputum - Expectorated Gram Stain - Final 09/26/17 12:10 Sputum - Expectorated Sputum Culture - Final NORMAL RESPIRATORY SHERIE 09/26/17 17:35 Blood - Peripheral Venous Blood Culture - Final Presumptive Mrsa (Pbp2a Pos) 09/26/17 17:35 Blood - Peripheral Venous Blood Culture - Final Presumptive Mrsa (Pbp2a Pos) 09/24/17 11:24 Blood - Peripheral Venous Blood Culture - Final Staphylococcus Latex Coag Pos 09/24/17 11:24 Blood - Peripheral Venous Blood Culture - Final S Aureus 09/24/17 16:10 Urine - Urine Clean Catch Urine Culture - Final Klebsiella Pneumoniae Klebsiella Pneumoniae#2 Assessment and PLan 61 year old male with pmhx of DM II, HTN, ESRD (Tues, Th, Sat), osteoarthritis and left below the knee amputation presented to the ED with + BCx from [facility] site following HD. 1. Persistent MRSA bacteremia - possible due to indwelling HD catheter. now removed. CHAKA negative for vegetations. afebrile. repeat BCx sent yesterday. on Dapto. contact precautions. ID on board. 2. Klebsiella UTI- on zosyn day 4. ID on board. 3. R IJ thrombus- not safe for thrombectomy per IR due to possible of embolization. on heparin ggt. 4. Chronic anemia- s/p 2 unit PRBC during this hospital stay. receiving ADRIAN with HD. will repeat cbc. check iron studies. transfuision for hgb <8 5. ESRD on HD- currently receiving HD. tolerating well. further management per nephro 6. DM- controlled. cont levemir, ISS< bgm 7. HTN-controlled 8. DVT ppx- hep ggt 9. awaiting labs from today. Visit type - Emergency Visit Emergency Visit: Yes ED Registration Date: 09/24/17 Care time: The patient presented to the Emergency Department on the above date and was hospitalized for further evaluation of their emergent condition. - New Patient This patient is new to me today: Yes Date on this admission: 10/04/17 - Critical Care Critical Care patient: No - Discharge Referral Referred to [facility] No
[2017-10-04] MEDS: SEVELAMER CARBONATE 800 MG TAB (FP) PO SCH ×3 (08:39→17:35)
[2017-10-04 09:53] LABS: HEMATOCRIT 28.3 % (35.4-49); MCH 28.6 pg (25.7-33.7); MCHC 31.9 g/dl (32.0-35.9); MEAN CELL VOLUME 89.8 fl (80-96); MEAN PLT VOLUME 8.9 fl (7.5-11.1); PLATELET COUNT 470 K/MM3 (134-434); RBC 3.16 M/mm3 (4.00-5.60); RDW 17.5 % (11.9-15.9); WHITE BLOOD COUNT 14.2 K/mm3 (4.0-10.0)
[2017-10-04 10:31] LABS: ANION GAP 11 (8-16); BLOOD UREA NITROGEN 54 mg/dL (7-18); CALCIUM 7.9 mg/dL (8.5-10.1); CHLORIDE 92 mmol/L (98-107); CO2 28 mmol/L (21-32); CREATININE 6.9 mg/dL (0.7-1.3); GLUCOSE,RANDOM 255 mg/dL (74-106); POTASSIUM 3.5 mmol/L (3.5-5.1); SODIUM 131 mmol/L (136-145)
--- NOTE | 2017-10-04 12:29 | PN ---
Progress Note (short form) - Note Progress Note: Renal Follow up for ESRD on HD Pt seen and examined during dialysis continues to have right sided PEREZ, neck discomfort that is unchanged on heparin gtt BP stable, UG goal is 3L no CP, SOB, N/V/D Vital Signs Temperature 97.6 F 10/04/17 06:00 Pulse Rate 65 10/04/17 11:35 Respiratory Rate 20 10/04/17 11:35 Blood Pressure 125/71 10/04/17 11:35 O2 Sat by Pulse Oximetry (%) 96 10/03/17 21:00 Intake & Output 10/01/17 10/02/17 10/03/17 10/04/17 23:59 23:59 23:59 23:59 Intake Total 1500 1710 860 234 Output Total 0 Balance 1500 1710 860 234 Weight 82.639 kg 82.185 kg 84.538 kg 86.137 kg NAD awake and alert RRR CTA soft NT/ND no LE edema CBC, BMP 10/04/17 08:30 10/04/17 08:30 Current Medications Acetaminophen (Tylenol -) 650 mg PO Q6H PRN PRN Reason: PAIN LEVEL 7 - 10 Last Admin: 10/04/17 08:14 Dose: 650 mg Albuterol/Ipratropium (Duoneb -) 1 amp NEB RQID [facility] Last Admin: 10/04/17 12:10 Dose: Not Given Doxazosin Mesylate (Cardura -) 4 mg PO DAILY [facility] Last Admin: 10/03/17 09:55 Dose: 4 mg Gabapentin (Neurontin -) 100 mg PO BID [facility] Last Admin: 10/03/17 21:43 Dose: 100 mg Heparin Sodium (Porcine) (Heparin -) 1,000 unit IVPUSH PRN PRN PRN Reason: Heparin Last Admin: 10/04/17 00:17 Dose: 1,000 unit Heparin Sodium (Porcine) (Heparin -) 5,000 unit IVPUSH PRN PRN PRN Reason: Heparin Last Admin: 10/04/17 08:19 Dose: 5,000 unit Piperacillin Sod/Tazobactam (Sod 2.25 gm/ Dextrose) 50 mls @ 100 mls/hr IVPB Q8H-IV [facility]; Protocol Last Admin: 10/04/17 01:28 Dose: 100 mls/hr Daptomycin 500 mg/ Sodium (Chloride) 100 mls @ 200 mls/hr IVPB MoWeFr@1000 [facility] ; Protocol Sodium Chloride (Normal Saline -) 250 mls @ 3,000 mls/hr IV PRN PRN PRN Reason: Hypotension during Dialysis Stop: 10/03/17 17:40 Heparin Sodium/Dextrose (Heparin Infusion -) 25,000 units in 500 mls @ 20 mls/ hr IVPB TITR [facility]; Protocol Last Titration: 10/04/17 08:39 Dose: 1,250 units/hr, 25 mls/hr Insulin Aspart (Novolog Vial Sliding Scale -) 1 vial SQ ACHS [facility]; Protocol Last Admin: 10/04/17 06:35 Dose: 8 units Insulin Detemir (Levemir Vial) 10 units SQ DAILY@0700 [facility] Last Admin: 10/04/17 06:36 Dose: 10 units Lidocaine (Lidoderm Patch -) 1 patch TP DAILY [facility] Last Admin: 10/03/17 10:06 Dose: Not Given Metoprolol Tartrate (Lopressor -) 50 mg PO BID [facility] Last Admin: 10/03/17 21:43 Dose: 50 mg Miscellaneous (Lidoderm Patch Removal) 1 each MC DAILY@2200 [facility] Last Admin: 10/03/17 21:47 Dose: 1 each Oxycodone HCl (Roxicodone -) 10 mg PO Q4H PRN PRN Reason: PAIN LEVEL 7 - 10 Last Admin: 10/04/17 08:13 Dose: 10 mg Sevelamer Carbonate (Renvela -) 1,600 mg PO TIDCM [facility] Last Admin: 10/04/17 08:39 Dose: Not Given Trazodone HCl (Desyrel -) 300 mg PO HS [facility] Last Admin: 10/03/17 21:43 Dose: 300 mg 62 year old AA gentleman with PMhx of ESRD on HD (TTS) secondary to suspected diabetic nephropathy, DM, Hypertension, PVD who presented outpatient blood cultures that were positive for gram positive Cocci. #ESRD on HD #Hyperkalemia #Hyponatremia #Gram + bacteremia/Sepsis #Anemia #Pericardial effusion tolerating dialysis today On 3K bath given K is 3.5 will continue Dapto following dialysis will need dialysis catheter to be removed after treatment will continue ADRIAN with HD transfuse for Hgb < 8 ID follow up Miguel Jansen DO
[2017-10-04] MEDS ORDERED: PT OWN MED DRAWER 7, Y5N ONE ×3 (12:33→20:38)
[2017-10-04] MEDS: DOXAZOSIN MESYLATE 4 MG TABLET PO SCH (12:50)
[2017-10-04] MEDS: LIDOCAINE 5% TOPICAL PATCH TP SCH ×2 (12:51→12:54)
[2017-10-04] MEDS: GABAPENTIN 100 MG CAPSULE (FP) PO SCH ×2 (12:51→21:25)
[2017-10-04] MEDS: METOPROLOL TARTRATE 50 MG TABLET (FP) PO SCH ×2 (12:51→21:25)
--- NOTE | 2017-10-04 14:42 | PN ---
Progress Note, Physician History of Present Illness: no new issues blood cx report pending being dialysed remaining afebrile - Current Medication List Current Medications: Active Medications Acetaminophen (Tylenol -) 650 mg PO Q6H PRN PRN Reason: PAIN LEVEL 7 - 10 Last Admin: 10/04/17 13:09 Dose: 650 mg Albuterol/Ipratropium (Duoneb -) 1 amp NEB RQID [facility] Last Admin: 10/04/17 12:10 Dose: Not Given Cyclobenzaprine HCl (Flexeril -) 5 mg PO ONCE ONE Stop: 10/04/17 14:02 Doxazosin Mesylate (Cardura -) 4 mg PO DAILY [facility] Last Admin: 10/04/17 12:50 Dose: 4 mg Gabapentin (Neurontin -) 100 mg PO BID [facility] Last Admin: 10/04/17 12:51 Dose: 100 mg Heparin Sodium (Porcine) (Heparin -) 1,000 unit IVPUSH PRN PRN PRN Reason: Heparin Last Admin: 10/04/17 00:17 Dose: 1,000 unit Heparin Sodium (Porcine) (Heparin -) 5,000 unit IVPUSH PRN PRN PRN Reason: Heparin Last Admin: 10/04/17 08:19 Dose: 5,000 unit Piperacillin Sod/Tazobactam (Sod 2.25 gm/ Dextrose) 50 mls @ 100 mls/hr IVPB Q8H-IV [facility]; Protocol Last Admin: 10/04/17 14:34 Dose: Not Given Daptomycin 500 mg/ Sodium (Chloride) 100 mls @ 200 mls/hr IVPB MoWeFr@1000 [facility] ; Protocol Sodium Chloride (Normal Saline -) 250 mls @ 3,000 mls/hr IV PRN PRN PRN Reason: Hypotension during Dialysis Stop: 10/03/17 17:40 Heparin Sodium/Dextrose (Heparin Infusion -) 25,000 units in 500 mls @ 20 mls/ hr IVPB TITR [facility]; Protocol Last Titration: 10/04/17 08:39 Dose: 1,250 units/hr, 25 mls/hr Insulin Aspart (Novolog Vial Sliding Scale -) 1 vial SQ ACHS [facility]; Protocol Last Admin: 10/04/17 12:52 Dose: 6 units Insulin Detemir (Levemir Vial) 10 units SQ DAILY@0700 [facility] Last Admin: 10/04/17 06:36 Dose: 10 units Lidocaine (Lidoderm Patch -) 1 patch TP DAILY [facility] Last Admin: 10/04/17 12:54 Dose: Not Given Metoprolol Tartrate (Lopressor -) 50 mg PO BID [facility] Last Admin: 10/04/17 12:51 Dose: 50 mg Miscellaneous (Lidoderm Patch Removal) 1 each MC DAILY@2200 [facility] Last Admin: 10/03/17 21:47 Dose: 1 each Oxycodone HCl (Roxicodone -) 10 mg PO Q4H PRN PRN Reason: PAIN LEVEL 7 - 10 Last Admin: 10/04/17 13:09 Dose: 10 mg Sevelamer Carbonate (Renvela -) 1,600 mg PO TIDCM [facility] Last Admin: 10/04/17 12:52 Dose: 1,600 mg Trazodone HCl (Desyrel -) 300 mg PO HS [facility] Last Admin: 10/03/17 21:43 Dose: 300 mg - Objective Vital Signs: Vital Signs Temperature 97.6 F 10/04/17 06:00 Pulse Rate 61 10/04/17 12:42 Respiratory Rate 20 10/04/17 12:42 Blood Pressure 126/68 10/04/17 12:42 O2 Sat by Pulse Oximetry (%) 96 10/03/17 21:00 Constitutional: Yes: Calm, Mild Distress HENT: Yes: Other (mild tenderness) Cardiovascular: Yes: Regular Rate and Rhythm Respiratory: Yes: Regular, CTA Bilaterally Gastrointestinal: Yes: Normal Bowel Sounds, Soft Musculoskeletal: Yes: WNL Extremities: Yes: WNL Neurological: Yes: Alert, Oriented Psychiatric: Yes: Alert, Oriented Labs: CBC, BMP 10/04/17 08:30 10/04/17 08:30 INR, PTT INR 1.14 (0.82-1.09) 09/25/17 10:38 Assessment/Plan patient just coming back form [facility] also received a dose of dapto gm positive bacteremia esrd fever hyperkalemia hyponatremia pericardial effusion plan continue dapto await for repeat blood cx report patients pain is better continue dialysis the thrombus needs to come out d/w vascular surgery patient needs to be transferred to tertiary care facility
[2017-10-04] MEDS ORDERED: CYCLOBENZAPRINE HCL 10 MG TABLET (FP) PO ONE (15:00)
[2017-10-04] MEDS: HEPARIN INFUSION - 25,000 UNITS/500 ML INFUS.BAG IVPB SCH (15:18)
[2017-10-04] MEDS: DAPTOMYCIN 500 MG in SODIUM CHLORIDE 100 ML IVPB SCH (17:07)
--- NOTE | 2017-10-04 17:41 | HOSP ---
Subjective - Review of Symptoms Subjective: pt c/o worsening neck pain. RUE swollen. U/s RUE obtained and now showing R cephalic vein thrombus unable to obtain 2nd access for tis patient and only Heparin IV is able to infuse. currently holding abx due to lack of access Call placed out to Dr Daly for central line placement Called [facility] transfer center and spoke with Dr Recinos. Will not accept pt over the weekend as pt is currently hemodynamically stable and IR not available there on the weekends. will accept on Saturday if pt still requiring transfer and to call back at that time Call placed out to [facility] transfer center. awaiting call back Physical Examination Vital Signs: Vital Signs Temperature 97.8 F 10/04/17 16:15 Pulse Rate 65 10/04/17 16:15 Respiratory Rate 18 10/04/17 16:15 Blood Pressure 125/74 10/04/17 16:15 O2 Sat by Pulse Oximetry (%) 96 10/03/17 21:00 Labs: CBC, BMP 10/04/17 08:30 10/04/17 08:30
--- NOTE | 2017-10-04 18:02 | CON.PSY ---
Psychiatry Consult Chief Complaint: I have PTSD from 911, I have been on Trazadone since then. Symptoms: reports: Depressed Mood - Previous Psychiatric Treatment Outpatient: Less than 6 mos ago Inpatient: None - Previous Substance Abuse Treatment Outpatient: None Inpatient: None - Reason for Previous Treatment Reason for Previous Treatment: Past Traumatic Stress - Current Medications Current Medications: Active Medications Acetaminophen (Tylenol -) 650 mg PO Q6H PRN PRN Reason: PAIN LEVEL 7 - 10 Last Admin: 10/04/17 13:09 Dose: 650 mg Albuterol/Ipratropium (Duoneb -) 1 amp NEB RQID [facility] Last Admin: 10/04/17 15:36 Dose: Not Given Doxazosin Mesylate (Cardura -) 4 mg PO DAILY [facility] Last Admin: 10/04/17 12:50 Dose: 4 mg Gabapentin (Neurontin -) 100 mg PO BID [facility] Last Admin: 10/04/17 12:51 Dose: 100 mg Heparin Sodium (Porcine) (Heparin -) 1,000 unit IVPUSH PRN PRN PRN Reason: Heparin Last Admin: 10/04/17 17:46 Dose: 1,000 unit Heparin Sodium (Porcine) (Heparin -) 5,000 unit IVPUSH PRN PRN PRN Reason: Heparin Last Admin: 10/04/17 08:19 Dose: 5,000 unit Piperacillin Sod/Tazobactam (Sod 2.25 gm/ Dextrose) 50 mls @ 100 mls/hr IVPB Q8H-IV [facility]; Protocol Last Admin: 10/04/17 17:31 Dose: Not Given Daptomycin 500 mg/ Sodium (Chloride) 100 mls @ 200 mls/hr IVPB MoWeFr@1000 [facility] ; Protocol Last Admin: 10/04/17 17:07 Dose: Not Given Sodium Chloride (Normal Saline -) 250 mls @ 3,000 mls/hr IV PRN PRN PRN Reason: Hypotension during Dialysis Stop: 10/03/17 17:40 Heparin Sodium/Dextrose (Heparin Infusion -) 25,000 units in 500 mls @ 20 mls/ hr IVPB TITR [facility]; Protocol Last Titration: 10/04/17 17:46 Dose: 1,400 units/hr, 28 mls/hr Insulin Aspart (Novolog Vial Sliding Scale -) 1 vial SQ ACHS [facility]; Protocol Last Admin: 10/04/17 16:50 Dose: 6 units Insulin Detemir (Levemir Vial) 10 units SQ DAILY@0700 [facility] Last Admin: 10/04/17 06:36 Dose: 10 units Lidocaine (Lidoderm Patch -) 1 patch TP DAILY [facility] Last Admin: 10/04/17 12:54 Dose: Not Given Metoprolol Tartrate (Lopressor -) 50 mg PO BID [facility] Last Admin: 10/04/17 12:51 Dose: 50 mg Miscellaneous (Lidoderm Patch Removal) 1 each MC DAILY@2200 [facility] Last Admin: 10/03/17 21:47 Dose: 1 each Oxycodone HCl (Roxicodone -) 10 mg PO Q4H PRN PRN Reason: PAIN LEVEL 7 - 10 Last Admin: 10/04/17 13:09 Dose: 10 mg Sevelamer Carbonate (Renvela -) 1,600 mg PO TIDCM [facility] Last Admin: 10/04/17 17:35 Dose: 1,600 mg Trazodone HCl (Desyrel -) 300 mg PO [facility] Last Admin: 10/03/17 21:43 Dose: 300 mg - Allergies Allergies: Allergies Allergy/AdvReac Type Severity Reaction Status Date / Time shellfish derived Allergy Severe "HIVES" Verified 03/18/17 14:03 No Known Drug Allergies Allergy Verified 03/18/17 14:03 - Current Living Status Usual Living Arrangement: Alone - Current Mental Status Evaluation Appearance: Well Groomed Attitude: Cooperative - Affect Affect: Constrictive Appropriateness: Appropriate to Content - Mood Mood: Euthymic - Speech/Language Expressive: Coherent - Psychomotor Activity Psychomotor Activity: Slowed - Thought Process Thought Process: Intact - Thought Content Hallucinations: Absent Delusions: Absent - Self Perception Self Perception: No Impairment - Cognition Attention: Alert Orientation: Time Memory, Immediate Recall: Intact Memory, Short Term: 3/3 Memory, Remote with Promptin/3 - Concentration Serial Sevens Intact: Yes Simple Calculations Intact: Yes - Abstraction Proverb Interpretation: Intact Judgement: Intact - Insight Insight: Intact - Impulse Control Impulse Control: Good Control - Suicidal Ideation Suicidal Ideation: No - Homicidal Ideation Homicidal Ideation: No Assessment/Plan 1) Continue with Trazadone 300mg po hs.
[2017-10-04] MEDS ORDERED: INSULIN (NOVOLOG) ASPART 100 UNITS/ML 10ML VIAL ONE (20:36)
[2017-10-04] MEDS: LIDOCAINE PATCH REMOVAL MC SCH (21:25)
[2017-10-04] MEDS: traZODone HCL 100 MG TABLET (FP) PO SCH (21:25)
[2017-10-05] MEDS: HEPARIN NA (PORCINE) 5,000 UNITS/ML 1ML VIAL IVPUSH PRN (00:09)
[2017-10-05] MEDS: PIPERACILLIN/TAZOB 2.25 GM 2.25 GM in DEXTROSE 5%-WATER - 50 ML IVPB SCH ×3 (02:15→17:41)
[2017-10-05] MEDS ORDERED: INSULIN (LEVEMIR) 100 UNITS/ML UNITS SQ ONE (05:28)
[2017-10-05] MEDS: INSULIN SLIDING SCALE (NOVOLOG) 1 VIAL SQ SCH ×4 (06:24→22:28)
[2017-10-05] MEDS: INSULIN (LEVEMIR) 100 UNITS/ML UNITS SQ SCH (06:25)
[2017-10-05 07:03] LABS: HEMATOCRIT 27.2 % (35.4-49); HEMOGLOBIN 8.9 GM/dL (11.7-16.9); MCH 29.3 pg (25.7-33.7); MCHC 32.6 g/dl (32.0-35.9); MEAN CELL VOLUME 89.9 fl (80-96); MEAN PLT VOLUME 7.8 fl (7.5-11.1); PLATELET COUNT 510 K/MM3 (134-434); RBC 3.02 M/mm3 (4.00-5.60); WHITE BLOOD COUNT 15.1 K/mm3 (4.0-10.0)
[2017-10-05] MEDS: ALBUTEROL SO4 2.5/IPRATROPIUM 0.5 INH SOL 3 ML VIAL.NEB. NEB SCH ×4 (07:41→20:35)
[2017-10-05] MEDS: SEVELAMER CARBONATE 800 MG TAB (FP) PO SCH ×3 (08:03→17:41)
[2017-10-05 08:07] LABS: SERUM IRON SATURATION 26 % (15-55); TOTAL IRON BINDING CAPACITY 130 ug/dL (250-450); UIBC 96 ug/dL (111-343)
[2017-10-05] MEDS: LIDOCAINE 5% TOPICAL PATCH TP SCH (08:59)
[2017-10-05] MEDS ORDERED: PT OWN MED DRAWER 7, Y5N ONE (09:27)
[2017-10-05] MEDS ORDERED: PIPERACILLIN/TAZOBACTAM 2.25 GM VIAL IVPB ONE ×3 (09:27→20:04)
[2017-10-05] MEDS ORDERED: DEXTROSE 5%-WATER - 50 ML IVPB ONE ×3 (09:27→20:05)
[2017-10-05] MEDS: METOPROLOL TARTRATE 50 MG TABLET (FP) PO SCH ×2 (09:38→22:25)
[2017-10-05] MEDS: DOXAZOSIN MESYLATE 4 MG TABLET PO SCH (09:38)
[2017-10-05] MEDS: GABAPENTIN 100 MG CAPSULE (FP) PO SCH ×2 (09:38→22:25)
[2017-10-05] MEDS: oxyCODONE HCL 5 MG TABLET PO PRN ×3 (09:53→22:45)
--- NOTE | 2017-10-05 10:06 | PN ---
Progress Note (short form) - Note Progress Note: Resting in NAD. No SOB or CP. Intake & Output 10/02/17 10/03/17 10/04/17 10/05/17 23:59 23:59 23:59 23:59 Intake Total 1710 860 859 340 Balance 1710 860 859 340 Weight 181 lb 3 oz 186 lb 6 oz 189 lb 14.4 oz 185 lb 2 oz Last Vital Signs Temp Pulse Resp BP Pulse Ox 97.7 F 64 20 126/68 96 10/05/17 06:18 10/05/17 06:18 10/05/17 06:18 10/05/17 06:18 10/03/17 21:00 Active Medications Acetaminophen (Tylenol -) 650 mg PO Q6H PRN PRN Reason: PAIN LEVEL 7 - 10 Last Admin: 10/04/17 21:37 Dose: 650 mg Albuterol/Ipratropium (Duoneb -) 1 amp NEB RQID [facility] Last Admin: 10/05/17 07:41 Dose: Not Given Doxazosin Mesylate (Cardura -) 4 mg PO DAILY [facility] Last Admin: 10/05/17 09:38 Dose: 4 mg Gabapentin (Neurontin -) 100 mg PO BID [facility] Last Admin: 10/05/17 09:38 Dose: 100 mg Heparin Sodium (Porcine) (Heparin -) 1,000 unit IVPUSH PRN PRN PRN Reason: Heparin Last Admin: 10/04/17 17:46 Dose: 1,000 unit Heparin Sodium (Porcine) (Heparin -) 5,000 unit IVPUSH PRN PRN PRN Reason: Heparin Last Admin: 10/05/17 00:09 Dose: 5,000 unit Piperacillin Sod/Tazobactam (Sod 2.25 gm/ Dextrose) 50 mls @ 100 mls/hr IVPB Q8H-IV [facility]; Protocol Last Admin: 10/05/17 09:38 Dose: 100 mls/hr Daptomycin 500 mg/ Sodium (Chloride) 100 mls @ 200 mls/hr IVPB MoWeFr@1000 [facility] ; Protocol Last Admin: 10/04/17 17:07 Dose: Not Given Sodium Chloride (Normal Saline -) 250 mls @ 3,000 mls/hr IV PRN PRN PRN Reason: Hypotension during Dialysis Stop: 10/03/17 17:40 Heparin Sodium/Dextrose (Heparin Infusion -) 25,000 units in 500 mls @ 20 mls/ hr IVPB TITR [facility]; Protocol Last Titration: 10/05/17 09:00 Dose: 1,500 units/hr, 30 mls/hr Insulin Aspart (Novolog Vial Sliding Scale -) 1 vial SQ ACHS [facility]; Protocol Last Admin: 10/05/17 06:24 Dose: 4 units Insulin Detemir (Levemir Vial) 10 units SQ DAILY@0700 [facility] Last Admin: 10/05/17 06:25 Dose: 10 units Lidocaine (Lidoderm Patch -) 1 patch TP DAILY [facility] Last Admin: 10/05/17 08:59 Dose: Not Given Metoprolol Tartrate (Lopressor -) 50 mg PO BID [facility] Last Admin: 10/05/17 09:38 Dose: 50 mg Miscellaneous (Lidoderm Patch Removal) 1 each MC DAILY@2200 [facility] Last Admin: 10/04/17 21:25 Dose: 1 each Oxycodone HCl (Roxicodone -) 10 mg PO Q4H PRN PRN Reason: PAIN LEVEL 7 - 10 Last Admin: 10/05/17 09:53 Dose: 10 mg Sevelamer Carbonate (Renvela -) 1,600 mg PO TIDCM [facility] Last Admin: 10/05/17 08:03 Dose: 1,600 mg Trazodone HCl (Desyrel -) 300 mg PO HS [facility] Last Admin: 10/04/17 21:25 Dose: 300 mg Constitutional: Yes: No Distress Neck: Yes: Supple Respiratory: Yes: diminished at the bases Gastrointestinal: Yes: Normal Bowel Sounds, Soft Cardiovascular: Yes: Regular Rate and Rhythm JVD: No Carotid Bruit: No Heart Sounds: Yes: S1, S2 Edema: No Laboratory Results - last 24 hr 10/04/17 10/04/17 10/04/17 08:30 08:42 12:48 WBC RBC Hgb Hct MCV MCH MCHC RDW Plt Count MPV PTT (Actin FS) Sodium 131 L Potassium 3.5 Chloride 92 L Carbon Dioxide 28 D Anion Gap 11 BUN 54 H D Creatinine 6.9 H D POC Glucometer 205 Random Glucose 255 H D Calcium 7.9 L Iron 34 L TIBC 130 L Iron Saturation 26 Ferritin 2525.8 H 10/04/17 10/04/17 10/04/17 16:00 16:48 21:33 WBC RBC Hgb Hct MCV MCH MCHC RDW Plt Count MPV PTT (Actin FS) 40.5 H 39.9 H Sodium Potassium Chloride Carbon Dioxide Anion Gap BUN Creatinine POC Glucometer 220 Random Glucose Calcium Iron TIBC Iron Saturation Ferritin 10/04/17 10/05/17 10/05/17 21:39 05:36 06:55 WBC 15.1 H RBC 3.02 L Hgb 8.9 L Hct 27.2 L MCV 89.9 MCH 29.3 MCHC 32.6 RDW 17.0 H Plt Count 510 H MPV 7.8 D PTT (Actin FS) Sodium Potassium Chloride Carbon Dioxide Anion Gap BUN Creatinine POC Glucometer 188 157 Random Glucose Calcium Iron TIBC Iron Saturation Ferritin 10/05/17 06:55 WBC RBC Hgb Hct MCV MCH MCHC RDW Plt Count MPV PTT (Actin FS) 63.2 H D Sodium Potassium Chloride Carbon Dioxide Anion Gap BUN Creatinine POC Glucometer Random Glucose Calcium Iron TIBC Iron Saturation Ferritin Problem List - Problems (1) Sepsis Code(s): A41.9 - SEPSIS, UNSPECIFIED ORGANISM (2) ESRD (end stage renal disease) Code(s): N18.6 - END STAGE RENAL DISEASE (3) Diabetes mellitus, insulin dependent (IDDM), controlled Code(s): E11.9 - TYPE 2 DIABETES MELLITUS WITHOUT COMPLICATIONS; Z79.4 - ALARM ADJUSTER (CURRENT) USE OF INSULIN (4) Amputation, below knee, unilateral, traumatic Code(s): S88.119A - COMPLETE TRAUM AMP AT LEV BETW KN & ANKL, UNSP LOW LEG, INIT (5) Bacteremia due to Gram-positive bacteria Code(s): R78.81 - BACTEREMIA (6) Dyspnea Code(s): R06.00 - DYSPNEA, UNSPECIFIED (7) Acute dyspnea Code(s): R06.00 - DYSPNEA, UNSPECIFIED (8) Chest congestion Code(s): R09.89 - OTH SYMPTOMS AND SIGNS INVOLVING THE CIRC AND RESP SYSTEMS (9) Peripheral vascular disease due to secondary diabetes Code(s): E13.51 - OTH DIABETES W DIABETIC PERIPHERAL ANGIOPATHY W/O GANGRENE (10) HTN (hypertension) Code(s): I10 - ESSENTIAL (PRIMARY) HYPERTENSION Qualifiers: Hypertension type: essential hypertension Qualified Code(s): I10 - Essential (primary) hypertension IMP GRAM+ BACTEREMIA/SEPSIS DYSPNEA LOW SUSPICION OF PNA / BASILAR ATELECTASIS ON CXR ESRD ON HD PVD S/P LEFT BKA IDDM HTN PLAN ABX PER ID O2 INHALED BRONCHODILATORS HD PER RENAL VTE PROPHYLAXIS BD TX PRN DR CARROLL
--- NOTE | 2017-10-05 11:57 | PN ---
Progress Note, Physician History of Present Illness: Pt seen and examined. Without new complaints. Remains afebrile, culture results noted. - Current Medication List Current Medications: Active Medications Acetaminophen (Tylenol -) 650 mg PO Q6H PRN PRN Reason: PAIN LEVEL 7 - 10 Last Admin: 10/04/17 21:37 Dose: 650 mg Albuterol/Ipratropium (Duoneb -) 1 amp NEB RQID [facility] Last Admin: 10/05/17 07:41 Dose: Not Given Doxazosin Mesylate (Cardura -) 4 mg PO DAILY [facility] Last Admin: 10/05/17 09:38 Dose: 4 mg Gabapentin (Neurontin -) 100 mg PO BID [facility] Last Admin: 10/05/17 09:38 Dose: 100 mg Heparin Sodium (Porcine) (Heparin -) 1,000 unit IVPUSH PRN PRN PRN Reason: Heparin Last Admin: 10/04/17 17:46 Dose: 1,000 unit Heparin Sodium (Porcine) (Heparin -) 5,000 unit IVPUSH PRN PRN PRN Reason: Heparin Last Admin: 10/05/17 00:09 Dose: 5,000 unit Piperacillin Sod/Tazobactam (Sod 2.25 gm/ Dextrose) 50 mls @ 100 mls/hr IVPB Q8H-IV [facility]; Protocol Last Admin: 10/05/17 09:38 Dose: 100 mls/hr Daptomycin 500 mg/ Sodium (Chloride) 100 mls @ 200 mls/hr IVPB MoWeFr@1000 [facility] ; Protocol Last Admin: 10/04/17 17:07 Dose: Not Given Sodium Chloride (Normal Saline -) 250 mls @ 3,000 mls/hr IV PRN PRN PRN Reason: Hypotension during Dialysis Stop: 10/03/17 17:40 Heparin Sodium/Dextrose (Heparin Infusion -) 25,000 units in 500 mls @ 20 mls/ hr IVPB TITR [facility]; Protocol Last Titration: 10/05/17 09:00 Dose: 1,500 units/hr, 30 mls/hr Insulin Aspart (Novolog Vial Sliding Scale -) 1 vial SQ ACHS [facility]; Protocol Last Admin: 10/05/17 06:24 Dose: 4 units Insulin Detemir (Levemir Vial) 10 units SQ DAILY@0700 [facility] Last Admin: 10/05/17 06:25 Dose: 10 units Lidocaine (Lidoderm Patch -) 1 patch TP DAILY [facility] Last Admin: 10/05/17 08:59 Dose: Not Given Metoprolol Tartrate (Lopressor -) 50 mg PO BID [facility] Last Admin: 10/05/17 09:38 Dose: 50 mg Miscellaneous (Lidoderm Patch Removal) 1 each MC DAILY@2200 [facility] Last Admin: 10/04/17 21:25 Dose: 1 each Oxycodone HCl (Roxicodone -) 10 mg PO Q4H PRN PRN Reason: PAIN LEVEL 7 - 10 Last Admin: 10/05/17 09:53 Dose: 10 mg Sevelamer Carbonate (Renvela -) 1,600 mg PO TIDCM [facility] Last Admin: 10/05/17 08:03 Dose: 1,600 mg Trazodone HCl (Desyrel -) 300 mg PO HS [facility] Last Admin: 10/04/17 21:25 Dose: 300 mg - Objective Vital Signs: Vital Signs Temperature 98.0 F 10/05/17 10:00 Pulse Rate 75 10/05/17 10:00 Respiratory Rate 20 10/05/17 10:00 Blood Pressure 178/76 10/05/17 10:00 O2 Sat by Pulse Oximetry (%) 96 10/03/17 21:00 Constitutional: Yes: No Distress, Calm Cardiovascular: Yes: Regular Rate and Rhythm Respiratory: Yes: Regular Gastrointestinal: Yes: Normal Bowel Sounds, Soft Extremities: Yes: Amputation (Lt BKA) Neurological: Yes: Alert Labs: CBC, BMP 10/05/17 06:55 10/04/17 08:30 INR, PTT INR 1.14 (0.82-1.09) 09/25/17 10:38 Microbiology 10/04/17 08:30 Blood - Pre-Dialysis Blood Culture - Preliminary NO GROWTH OBTAINED AFTER 24 HOURS, INCUBATION TO CONTINUE FOR 4 DAYS. 10/04/17 08:30 Blood - Pre-Dialysis Blood Culture - Preliminary NO GROWTH OBTAINED AFTER 24 HOURS, INCUBATION TO CONTINUE FOR 4 DAYS. 10/03/17 15:00 Blood - Peripheral Venous Blood Culture - Preliminary NO GROWTH OBTAINED AFTER 24 HOURS, INCUBATION TO CONTINUE FOR 4 DAYS. 10/03/17 14:35 Blood - Peripheral Venous Blood Culture - Preliminary NO GROWTH OBTAINED AFTER 24 HOURS, INCUBATION TO CONTINUE FOR 4 DAYS. Problem List - Problems (1) Bacteremia due to Gram-positive bacteria Code(s): R78.81 - BACTEREMIA (2) Peripheral vascular disease due to secondary diabetes Code(s): E13.51 - OTH DIABETES W DIABETIC PERIPHERAL ANGIOPATHY W/O GANGRENE (3) Diabetes mellitus, insulin dependent (IDDM), controlled Code(s): E11.9 - TYPE 2 DIABETES MELLITUS WITHOUT COMPLICATIONS; Z79.4 - DETENTION (CURRENT) USE OF INSULIN (4) HTN (hypertension) Code(s): I10 - ESSENTIAL (PRIMARY) HYPERTENSION Qualifiers: Hypertension type: essential hypertension Qualified Code(s): I10 - Essential (primary) hypertension Assessment/Plan MRSA bacteremia IJ/cephalic thrombosis ESRD on HD Fever- resolved Leukocytosis hyperkalemia hyponatremia pericardial effusion - continue antibiotics - afebrile, latest blood cultures no growth - for further management of thrombosis - continue monitor
[2017-10-05] MEDS: HEPARIN INFUSION - 25,000 UNITS/500 ML INFUS.BAG IVPB SCH ×2 (12:03→16:14)
--- NOTE | 2017-10-05 12:53 | PN ---
Progress Note, Physician Chief Complaint: The patient seen in his room. repotrts feeling better today. No fever. The neck pain also better. The Permacath is out. Last HD yesterday. - Current Medication List Current Medications: Active Medications Acetaminophen (Tylenol -) 650 mg PO Q6H PRN PRN Reason: PAIN LEVEL 7 - 10 Last Admin: 10/04/17 21:37 Dose: 650 mg Albuterol/Ipratropium (Duoneb -) 1 amp NEB RQID [facility] Last Admin: 10/05/17 12:07 Dose: Not Given Doxazosin Mesylate (Cardura -) 4 mg PO DAILY [facility] Last Admin: 10/05/17 09:38 Dose: 4 mg Gabapentin (Neurontin -) 100 mg PO BID [facility] Last Admin: 10/05/17 09:38 Dose: 100 mg Heparin Sodium (Porcine) (Heparin -) 1,000 unit IVPUSH PRN PRN PRN Reason: Heparin Last Admin: 10/04/17 17:46 Dose: 1,000 unit Heparin Sodium (Porcine) (Heparin -) 5,000 unit IVPUSH PRN PRN PRN Reason: Heparin Last Admin: 10/05/17 00:09 Dose: 5,000 unit Piperacillin Sod/Tazobactam (Sod 2.25 gm/ Dextrose) 50 mls @ 100 mls/hr IVPB Q8H-IV [facility]; Protocol Last Admin: 10/05/17 09:38 Dose: 100 mls/hr Daptomycin 500 mg/ Sodium (Chloride) 100 mls @ 200 mls/hr IVPB MoWeFr@1000 [facility] ; Protocol Last Admin: 10/04/17 17:07 Dose: Not Given Sodium Chloride (Normal Saline -) 250 mls @ 3,000 mls/hr IV PRN PRN PRN Reason: Hypotension during Dialysis Stop: 10/03/17 17:40 Heparin Sodium/Dextrose (Heparin Infusion -) 25,000 units in 500 mls @ 20 mls/ hr IVPB TITR [facility]; Protocol Last Admin: 10/05/17 12:03 Dose: 1,500 units/hr, 30 mls/hr Insulin Aspart (Novolog Vial Sliding Scale -) 1 vial SQ ACHS [facility]; Protocol Last Admin: 10/05/17 12:07 Dose: Not Given Insulin Detemir (Levemir Vial) 10 units SQ DAILY@0700 [facility] Last Admin: 10/05/17 06:25 Dose: 10 units Lidocaine (Lidoderm Patch -) 1 patch TP DAILY [facility] Last Admin: 10/05/17 08:59 Dose: Not Given Metoprolol Tartrate (Lopressor -) 50 mg PO BID [facility] Last Admin: 10/05/17 09:38 Dose: 50 mg Miscellaneous (Lidoderm Patch Removal) 1 each MC DAILY@2200 [facility] Last Admin: 10/04/17 21:25 Dose: 1 each Oxycodone HCl (Roxicodone -) 10 mg PO Q4H PRN PRN Reason: PAIN LEVEL 7 - 10 Last Admin: 10/05/17 09:53 Dose: 10 mg Sevelamer Carbonate (Renvela -) 1,600 mg PO TIDCM [facility] Last Admin: 10/05/17 12:03 Dose: 1,600 mg Trazodone HCl (Desyrel -) 300 mg PO HS [facility] Last Admin: 10/04/17 21:25 Dose: 300 mg - Objective Vital Signs: Vital Signs Temperature 98.0 F 10/05/17 10:00 Pulse Rate 75 10/05/17 10:00 Respiratory Rate 20 10/05/17 10:00 Blood Pressure 178/76 10/05/17 10:00 O2 Sat by Pulse Oximetry (%) 96 10/03/17 21:00 Constitutional: Yes: Well Nourished, Anxious Eyes: Yes: Conjunctiva Clear Neck: Yes: Trachea Midline Cardiovascular: Yes: Regular Rate and Rhythm, S1, S2 Respiratory: Yes: Diminished Gastrointestinal: Yes: Normal Bowel Sounds Musculoskeletal: Yes: Back Pain, Joint Stiffness Extremities: Yes: Amputation Labs: CBC, BMP 10/05/17 06:55 10/04/17 08:30 INR, PTT INR 1.14 (0.82-1.09) 09/25/17 10:38 Problem List - Problems (1) Bacteremia due to Gram-positive bacteria Code(s): R78.81 - BACTEREMIA (2) Dyspnea Code(s): R06.00 - DYSPNEA, UNSPECIFIED (3) ESRD (end stage renal disease) Code(s): N18.6 - END STAGE RENAL DISEASE (4) Hyperglycemia Code(s): R73.9 - HYPERGLYCEMIA, UNSPECIFIED (5) Internal jugular vein thrombosis Code(s): I82.C19 - ACUTE EMBOLISM AND THROMBOSIS OF UNSP INTERNAL JUGULAR VEIN Qualifiers: Laterality: right Qualified Code(s): I82.C11 - Acute embolism and thrombosis of right internal jugular vein (6) Sepsis Code(s): A41.9 - SEPSIS, UNSPECIFIED ORGANISM Qualifiers: Sepsis type: methicillin susceptible Staphylococcus aureus Qualified Code(s ): A41.01 - Sepsis due to Methicillin susceptible Staphylococcus aureus (7) Diabetes mellitus, insulin dependent (IDDM), controlled Code(s): E11.9 - TYPE 2 DIABETES MELLITUS WITHOUT COMPLICATIONS; Z79.4 - LONGTERM (CURRENT) USE OF INSULIN (8) Amputation, below knee, unilateral, traumatic Code(s): S88.119A - COMPLETE TRAUM AMP AT LEV BETW KN & ANKL, UNSP LOW LEG, INIT (9) Diabetes mellitus Code(s): E11.9 - TYPE 2 DIABETES MELLITUS WITHOUT COMPLICATIONS Qualifiers: Diabetes mellitus type: type 2 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: without correction use Diabetes mellitus complication status: without complication Qualified Code(s): E11.9 - Type 2 diabetes mellitus without complications (10) Diabetic neuropathy Code(s): E11.40 - TYPE 2 DIABETES MELLITUS WITH DIABETIC NEUROPATHY, UNSP Qualifiers: Diabetes mellitus type: type 2 Diabetes mellitus complication detail: diabetic polyneuropathy Qualified Code(s): E11.42 - Type 2 diabetes mellitus with diabetic polyneuropathy (11) Dialysis patient Code(s): Z99.2 - DEPENDENCE ON RENAL DIALYSIS (12) HTN (hypertension) Code(s): I10 - ESSENTIAL (PRIMARY) HYPERTENSION Qualifiers: Hypertension type: essential hypertension Qualified Code(s): I10 - Essential (primary) hypertension (13) Severe anemia Code(s): D64.9 - ANEMIA, UNSPECIFIED Assessment/Plan 62 year old AA gentleman with PMhx of ESRD on HD (TTS) secondary to suspected diabetic nephropathy, DM, Hypertension, PVD who presented outpatient blood cultures that were positive for gram positive Cocci. ESRD on HD Hyperkalemia Hyponatremia Gram + bacteremia/Sepsis Anemia Pericardial effusion The patient has IJ thrombosis. NO HD access. IV antibiotics well tolerated. Will continue the same. Waiting transfer to a tertiary center. Aniyah Chaudhry MD
--- NOTE | 2017-10-05 18:58 | PN ---
Progress Note, Physician History of Present Illness: Afebrile, right neck discomfort, last blood cultures sent shows clearance of MRSA bacteremia. - Current Medication List Current Medications: Active Medications Acetaminophen (Tylenol -) 650 mg PO Q6H PRN PRN Reason: PAIN LEVEL 7 - 10 Last Admin: 10/04/17 21:37 Dose: 650 mg Albuterol/Ipratropium (Duoneb -) 1 amp NEB RQID [facility] Last Admin: 10/05/17 16:25 Dose: 1 amp Doxazosin Mesylate (Cardura -) 4 mg PO DAILY [facility] Last Admin: 10/05/17 09:38 Dose: 4 mg Gabapentin (Neurontin -) 100 mg PO BID [facility] Last Admin: 10/05/17 09:38 Dose: 100 mg Heparin Sodium (Porcine) (Heparin -) 1,000 unit IVPUSH PRN PRN PRN Reason: Heparin Last Admin: 10/04/17 17:46 Dose: 1,000 unit Heparin Sodium (Porcine) (Heparin -) 5,000 unit IVPUSH PRN PRN PRN Reason: Heparin Last Admin: 10/05/17 00:09 Dose: 5,000 unit Piperacillin Sod/Tazobactam (Sod 2.25 gm/ Dextrose) 50 mls @ 100 mls/hr IVPB Q8H-IV [facility]; Protocol Last Admin: 10/05/17 17:41 Dose: 100 mls/hr Daptomycin 500 mg/ Sodium (Chloride) 100 mls @ 200 mls/hr IVPB MoWeFr@1000 [facility] ; Protocol Last Admin: 10/04/17 17:07 Dose: Not Given Sodium Chloride (Normal Saline -) 250 mls @ 3,000 mls/hr IV PRN PRN PRN Reason: Hypotension during Dialysis Stop: 10/03/17 17:40 Heparin Sodium/Dextrose (Heparin Infusion -) 25,000 units in 500 mls @ 20 mls/ hr IVPB TITR [facility]; Protocol Last Admin: 10/05/17 16:14 Dose: Not Given Insulin Aspart (Novolog Vial Sliding Scale -) 1 vial SQ ACHS [facility]; Protocol Last Admin: 10/05/17 17:45 Dose: 6 units Insulin Detemir (Levemir Vial) 10 units SQ DAILY@0700 [facility] Last Admin: 10/05/17 06:25 Dose: 10 units Lidocaine (Lidoderm Patch -) 1 patch TP DAILY [facility] Last Admin: 10/05/17 08:59 Dose: Not Given Metoprolol Tartrate (Lopressor -) 50 mg PO BID [facility] Last Admin: 10/05/17 09:38 Dose: 50 mg Miscellaneous (Lidoderm Patch Removal) 1 each MC DAILY@2200 [facility] Last Admin: 10/04/17 21:25 Dose: 1 each Oxycodone HCl (Roxicodone -) 10 mg PO Q4H PRN PRN Reason: PAIN LEVEL 7 - 10 Last Admin: 10/05/17 15:46 Dose: 10 mg Sevelamer Carbonate (Renvela -) 1,600 mg PO TIDCM [facility] Last Admin: 10/05/17 17:41 Dose: 1,600 mg Trazodone HCl (Desyrel -) 300 mg PO HS [facility] Last Admin: 10/04/17 21:25 Dose: 300 mg - Objective Vital Signs: Vital Signs Temperature 98.4 F 10/05/17 15:09 Pulse Rate 65 10/05/17 15:09 Respiratory Rate 20 10/05/17 15:09 Blood Pressure 145/69 10/05/17 15:09 O2 Sat by Pulse Oximetry (%) 96 10/03/17 21:00 Constitutional: Yes: No Distress, Calm Neck: Yes: Supple Cardiovascular: Yes: Regular Rate and Rhythm Respiratory: Yes: Regular, Diminished Gastrointestinal: Yes: Normal Bowel Sounds, Soft Extremities: Yes: Amputation (Left BKA) Edema: No Labs: CBC, BMP 10/05/17 06:55 10/04/17 08:30 INR, PTT INR 1.14 (0.82-1.09) 09/25/17 10:38 Problem List - Problems (1) Bacteremia due to Gram-positive bacteria Code(s): R78.81 - BACTEREMIA (2) ESRD (end stage renal disease) Code(s): N18.6 - END STAGE RENAL DISEASE (3) Sepsis Code(s): A41.9 - SEPSIS, UNSPECIFIED ORGANISM Qualifiers: Sepsis type: methicillin susceptible Staphylococcus aureus Qualified Code(s ): A41.01 - Sepsis due to Methicillin susceptible Staphylococcus aureus (4) Diabetes mellitus, insulin dependent (IDDM), controlled Code(s): E11.9 - TYPE 2 DIABETES MELLITUS WITHOUT COMPLICATIONS; Z79.4 - SENIOR CARE (CURRENT) USE OF INSULIN (5) Hyponatremia Code(s): E87.1 - HYPO-OSMOLALITY AND HYPONATREMIA (6) Anemia Code(s): D64.9 - ANEMIA, UNSPECIFIED Qualifiers: Anemia type: due to chronic kidney disease (7) Dialysis patient Code(s): Z99.2 - DEPENDENCE ON RENAL DIALYSIS (8) S/P amputation Code(s): Z89.9 - ACQUIRED ABSENCE OF LIMB, UNSPECIFIED (9) Type 2 diabetes mellitus with foot ulcer Code(s): E11.621 - TYPE 2 DIABETES MELLITUS WITH FOOT ULCER; L97.509 - NON- PRESSURE CHRONIC ULCER OTH PRT UNSP FOOT W UNSP SEVERITY (10) Internal jugular vein thrombosis Code(s): I82.C19 - ACUTE EMBOLISM AND THROMBOSIS OF UNSP INTERNAL JUGULAR VEIN Qualifiers: Laterality: right Qualified Code(s): I82.C11 - Acute embolism and thrombosis of right internal jugular vein Assessment/Plan 09/30/2017 CHAKA: Normal biventricular size and fxn, mild AR, FL, MR, no SIS thrombus or vegetations 1. MRSA bacteremia suspect line sepsis from indwelling dialysis catheter - catheter removed - intermittently febrile due to sepsis 2. ESRD on HD, suspected diabetic nephropathy with hyponatremia 3. 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 Type 2 DM 5. HTN/HCVD 6. PAD 7. Anemia of chronic kidney disease 8. Bacteruria 9. Right IJ thrombus probably catheter related, possible septic 10. PAD s/p left BKA PLAN: 1. Antibiotic course per ID, repeat surveillance cx demonstrated clearance post catheter removal . CHAKA shows no evidence of vegetations 2. HD via right femoral Shiley 3. Consideration for Right IJ thrombectomy by IR, currently on heparin gtt 4. Continue Lopressor 50 bid, Cardura 4 qd
--- NOTE | 2017-10-05 19:51 | PN ---
Physical Exam: SUBJECTIVE: Patient seen and examined at bedside. Complaining of left-sided headache and neck pain. Denies vision changes. OBJECTIVE: Vital Signs Period Temp Pulse Resp BP Sys/Gutierrez Pulse Ox Last 24 Hr 97.7 F-98.4 F 64-75 18-20 125-178/68-76 GENERAL: The patient is awake, alert, and fully oriented, in no acute distress. NECK: Trachea midline, full range of motion, supple. LUNGS: CTA HEART: Regular rate and rhythm, S1, S2 ABDOMEN: Soft, nontender, nondistended EXTREMITIES: Left BKA, well-healed NEUROLOGICAL: Cranial nerves II through XII grossly intact. Normal speech, gait not observed. Laboratory Results - last 24 hr 10/02/17 10/04/17 10/04/17 11:10 08:42 21:33 WBC RBC Hgb Hct MCV MCH MCHC RDW Plt Count MPV PTT (Actin FS) 39.9 H POC Glucometer Iron 34 L TIBC 130 L Iron Saturation 26 Blood Type B POSITIVE Antibody Screen Negative Crossmatch See Detail 10/04/17 10/05/17 10/05/17 21:39 05:36 06:55 WBC 15.1 H RBC 3.02 L Hgb 8.9 L Hct 27.2 L MCV 89.9 MCH 29.3 MCHC 32.6 RDW 17.0 H Plt Count 510 H MPV 7.8 D PTT (Actin FS) POC Glucometer 188 157 Iron TIBC Iron Saturation Blood Type Antibody Screen Crossmatch 10/05/17 10/05/17 10/05/17 06:55 12:06 17:43 WBC RBC Hgb Hct MCV MCH MCHC RDW Plt Count MPV PTT (Actin FS) 63.2 H D POC Glucometer 145 209 Iron TIBC Iron Saturation Blood Type Antibody Screen Crossmatch Active Medications Generic Name Dose Route Start Last Admin Trade Name Freq PRN Reason Stop Dose Admin Acetaminophen 650 mg 10/01/17 05:28 10/04/17 21:37 Tylenol - PO 650 mg Q6H PRN Administration PAIN LEVEL 7 - 10 Albuterol/Ipratropium 1 amp 10/01/17 08:00 10/05/17 16:25 Duoneb - NEB 1 amp RQID [facility] Administration Doxazosin Mesylate 4 mg 10/01/17 10:00 10/05/17 09:38 Cardura - PO 4 mg DAILY [facility] Administration Gabapentin 100 mg 10/01/17 10:00 10/05/17 09:38 Neurontin - PO 100 mg BID [facility] Administration Heparin Sodium (Porcine) 1,000 unit 10/03/17 15:04 10/04/17 17:46 Heparin - IVPUSH 1,000 unit PRN PRN Administration Heparin Heparin Sodium (Porcine) 5,000 unit 10/03/17 15:04 10/05/17 00:09 Heparin - IVPUSH 5,000 unit PRN PRN Administration Heparin Piperacillin Sod/Tazobactam 50 mls @ 100 mls/hr 10/01/17 10:00 10/05/17 17:41 Sod 2.25 gm/ Dextrose IVPB 100 mls/hr Q8H-IV [facility] Administration Protocol Daptomycin 500 mg/ Sodium 100 mls @ 200 mls/hr 10/04/17 10:00 10/04/17 17:07 Chloride IVPB Not Given MoWeFr@1000 [facility] Protocol Sodium Chloride 250 mls @ 3,000 mls/hr 10/02/17 17:40 Normal Saline - IV 10/03/17 17:40 PRN PRN Hypotension during Dialysis Heparin Sodium/Dextrose 25,000 units in 500 mls @ 20 mls/hr 10/03/17 15:15 16:14 Heparin Infusion - IVPB Not Given TITR [facility] Protocol 1,000 UNITS/HR Insulin Aspart 1 vial 10/01/17 07:00 10/05/17 17:45 Novolog Vial Sliding Scale - SQ 6 units ACHS [facility] Administration Protocol Insulin Detemir 10 units 10/01/17 07:00 10/05/17 06:25 Levemir Vial SQ 10 units DAILY@0700 [facility] Administration Lidocaine 1 patch 10/01/17 11:45 10/05/17 08:59 Lidoderm Patch - TP Not Given DAILY [facility] Metoprolol Tartrate 50 mg 10/01/17 10:00 10/05/17 09:38 Lopressor - PO 50 mg BID [facility] Administration Miscellaneous 1 each 10/01/17 22:00 10/04/17 21:25 Lidoderm Patch Removal MC 1 each DAILY@2200 [facility] Administration Oxycodone HCl 10 mg 10/01/17 05:28 10/05/17 15:46 Roxicodone - PO 10 mg Q4H PRN Administration PAIN LEVEL 7 - 10 Sevelamer Carbonate 1,600 mg 10/01/17 08:00 10/05/17 17:41 Renvela - PO 1,600 mg TIDCM [facility] Administration Trazodone HCl 300 mg 10/01/17 22:00 10/04/17 21:25 Desyrel - PO 300 mg HS [facility] Administration ASSESSMENT/PLAN 61 year-old male with a PMH significant for HTN, IDDM, ESRD on HD (T,Th,Sat), and left BKA. Admitted for MRSA bacteremia. Thrombi --occlusive thrombus inferior right IJ; presumably from earlier permacath; this is suspected nidus of infection --occlusive thrombus lower right cephalic vein (superficial) --on heparin drip after discussion among Dr. Richards, AJ Brower, Dr. Chuadhry, Dr. Daly due to size of clot --will get heme consult to assess long-term anti-coagulation needs --we will continue to medically manage MRSA bacteremia --continue Dapto on HD days; discussed with Dr. Brown today; will need 6 weeks of dapto Klebsiella UTI --Zosyn completed course (09/26-10/06) Chronic anemia --transfused 2U PRBC on 10/02 --h/h stable ESRD on HD --femoral shiley's are being placed PRN --will need permacath and AV fistula --continue sevelamar IDDM --Levemir 10U --Novolog sliding scale coverage Hypertension --BP stable --continue FEN Fluids: PO intake adequate Electrolytes: replete as indicated Nutrition: renal diet DVT prophylaxis: on heparin drip; PTT goal 60-80. Visit type - Emergency Visit Emergency Visit: Yes ED Registration Date: 09/24/17 Care time: The patient presented to the Emergency Department on the above date and was hospitalized for further evaluation of their emergent condition. - New Patient This patient is new to me today: Yes Date on this admission: 10/07/17 - Critical Care Critical Care patient: No - Discharge Referral Referred to [facility] No
[2017-10-05] MEDS ORDERED: traZODone HCL 50 MG TABLET (FP) ONE (20:04)
[2017-10-05] MEDS: traZODone HCL 100 MG TABLET (FP) PO SCH (22:25)
[2017-10-05] MEDS: LIDOCAINE PATCH REMOVAL MC SCH (22:26)
[2017-10-06] MEDS: PIPERACILLIN/TAZOB 2.25 GM 2.25 GM in DEXTROSE 5%-WATER - 50 ML IVPB SCH ×2 (02:22→09:42)
[2017-10-06] MEDS: HEPARIN SOD,PORK IN 0.45% NACL 25,000 UNITS/500 ML INFUS.BAG IVPB SCH (05:00)
[2017-10-06] MEDS: INSULIN SLIDING SCALE (NOVOLOG) 1 VIAL SQ SCH ×4 (06:40→22:00)
[2017-10-06 06:41] LABS: HEMATOCRIT 26.6 % (35.4-49); HEMOGLOBIN 8.7 GM/dL (11.7-16.9); MCH 29.2 pg (25.7-33.7); MCHC 32.5 g/dl (32.0-35.9); MEAN CELL VOLUME 89.9 fl (80-96); MEAN PLT VOLUME 7.9 fl (7.5-11.1); PLATELET COUNT 536 K/MM3 (134-434); RBC 2.96 M/mm3 (4.00-5.60); RDW 17.2 % (11.9-15.9); WHITE BLOOD COUNT 13.5 K/mm3 (4.0-10.0)
[2017-10-06] MEDS: INSULIN (LEVEMIR) 100 UNITS/ML UNITS SQ SCH (06:41)
[2017-10-06 07:21] LABS: ALBUMIN 1.8 g/dl (3.4-5.0); ANION GAP 11 (8-16); BLOOD UREA NITROGEN 45 mg/dL (7-18); CHLORIDE 93 mmol/L (98-107); CO2 26 mmol/L (21-32); GLUCOSE,RANDOM 225 mg/dL (74-106); SODIUM 130 mmol/L (136-145)
[2017-10-06 07:23] LABS: ALK PHOS 100 U/L (45-117); BILIRUBIN,TOTAL 0.3 mg/dL (0.2-1.0); CREATININE 6.7 mg/dL (0.7-1.3); SGPT/ALT 25 U/L (12-78); TOT PROT 5.8 g/dl (6.4-8.2)
[2017-10-06 07:26] LABS: MAGNESIUM 1.9 mg/dL (1.8-2.4); POTASSIUM 4.4 mmol/L (3.5-5.1); SGOT/AST 19 U/L (15-37)
[2017-10-06] MEDS ORDERED: PIPERACILLIN/TAZOBACTAM 2.25 GM VIAL IVPB ONE (09:30)
[2017-10-06] MEDS ORDERED: DEXTROSE 5%-WATER - 50 ML IVPB ONE (09:31)
[2017-10-06] MEDS: SEVELAMER CARBONATE 800 MG TAB (FP) PO SCH ×3 (09:40→17:47)
[2017-10-06] MEDS: DOXAZOSIN MESYLATE 4 MG TABLET PO SCH (09:41)
[2017-10-06] MEDS: LIDOCAINE 5% TOPICAL PATCH TP SCH ×2 (09:42→09:53)
[2017-10-06] MEDS: GABAPENTIN 100 MG CAPSULE (FP) PO SCH ×2 (09:42→21:54)
[2017-10-06] MEDS: METOPROLOL TARTRATE 50 MG TABLET (FP) PO SCH ×2 (09:42→21:54)
[2017-10-06] MEDS: oxyCODONE HCL 5 MG TABLET PO PRN ×2 (09:47→20:26)
[2017-10-06] MEDS ORDERED: PT OWN MED DRAWER 7, Y5N ONE (10:00)
--- NOTE | 2017-10-06 10:41 | PN ---
Physical Exam: SUBJECTIVE: Patient seen and examined at bedside. Feels better. Headache almost completely resolved. OBJECTIVE: Vital Signs Period Temp Pulse Resp BP Sys/Gutierrez Pulse Ox Last 24 Hr 97.2 F-98.4 F 65-77 20-20 145-156/69-92 GENERAL: The patient is awake, alert, and fully oriented, in no acute distress. NECK: Trachea midline, full range of motion, supple. LUNGS: CTA HEART: Regular rate and rhythm, S1, S2 ABDOMEN: Soft, nontender, nondistended EXTREMITIES: Left BKA, well-healed NEUROLOGICAL: Cranial nerves II through XII grossly intact. Normal speech, gait not observed. Laboratory Results - last 24 hr 10/02/17 10/05/17 10/05/17 11:10 12:06 17:43 WBC RBC Hgb Hct MCV MCH MCHC RDW Plt Count MPV PTT (Actin FS) Sodium Potassium Chloride Carbon Dioxide Anion Gap BUN Creatinine Creat Clearance w eGFR POC Glucometer 145 209 Random Glucose Calcium Magnesium Total Bilirubin AST ALT Alkaline Phosphatase Total Protein Albumin Blood Type B POSITIVE Antibody Screen Negative Crossmatch See Detail 10/05/17 10/06/17 10/06/17 22:27 06:00 06:00 WBC 13.5 H RBC 2.96 L Hgb 8.7 L Hct 26.6 L MCV 89.9 MCH 29.2 MCHC 32.5 RDW 17.2 H Plt Count 536 H MPV 7.9 PTT (Actin FS) 42.9 H D Sodium Potassium Chloride Carbon Dioxide Anion Gap BUN Creatinine Creat Clearance w eGFR POC Glucometer 187 Random Glucose Calcium Magnesium Total Bilirubin AST ALT Alkaline Phosphatase Total Protein Albumin Blood Type Antibody Screen Crossmatch 10/06/17 10/06/17 06:00 06:35 WBC RBC Hgb Hct MCV MCH MCHC RDW Plt Count MPV PTT (Actin FS) Sodium 130 L Potassium 4.4 D Chloride 93 L Carbon Dioxide 26 Anion Gap 11 BUN 45 H Creatinine 6.7 H Creat Clearance w eGFR 8.43 POC Glucometer 239 Random Glucose 225 H Calcium 8.0 L Magnesium 1.9 Total Bilirubin 0.3 D AST 19 D ALT 25 Alkaline Phosphatase 100 Total Protein 5.8 L Albumin 1.8 L Blood Type Antibody Screen Crossmatch Active Medications Generic Name Dose Route Start Last Admin Trade Name Freq PRN Reason Stop Dose Admin Acetaminophen 650 mg 10/01/17 05:28 10/04/17 21:37 Tylenol - PO 650 mg Q6H PRN Administration PAIN LEVEL 7 - 10 Doxazosin Mesylate 4 mg 10/01/17 10:00 10/06/17 09:41 Cardura - PO 4 mg DAILY [facility] Administration Gabapentin 100 mg 10/01/17 10:00 10/06/17 09:42 Neurontin - PO 100 mg BID [facility] Administration Heparin Sodium (Porcine) 1,000 unit 10/03/17 15:04 10/04/17 17:46 Heparin - IVPUSH 1,000 unit PRN PRN Administration Heparin Heparin Sodium (Porcine) 5,000 unit 10/03/17 15:04 10/05/17 00:09 Heparin - IVPUSH 5,000 unit PRN PRN Administration Heparin Piperacillin Sod/Tazobactam 50 mls @ 100 mls/hr 10/01/17 10:00 10/06/17 09:42 Sod 2.25 gm/ Dextrose IVPB 100 mls/hr Q8H-IV [facility] Administration Protocol Daptomycin 500 mg/ Sodium 100 mls @ 200 mls/hr 10/04/17 10:00 10/04/17 17:07 Chloride IVPB Not Given MoWeFr@1000 [facility] Protocol Sodium Chloride 250 mls @ 3,000 mls/hr 10/02/17 17:40 Normal Saline - IV 10/03/17 17:40 PRN PRN Hypotension during Dialysis HEPARIN SOD,PORK IN 0.45% NACL 25,000 units in 500 mls @ 20 mls/hr 10/06/17 05 :00 10/06/17 05:00 Heparin-1/2ns 25,000 Units/500 IVPB 1,000 units/hr TITR [facility] 20 mls/hr Administration Protocol 1,000 UNITS/HR Insulin Aspart 1 vial 10/01/17 07:00 10/06/17 06:40 Novolog Vial Sliding Scale - SQ 6 units ACHS [facility] Administration Protocol Insulin Detemir 10 units 10/01/17 07:00 10/06/17 06:41 Levemir Vial SQ 10 units DAILY@0700 [facility] Administration Lidocaine 1 patch 10/01/17 11:45 10/06/17 09:53 Lidoderm Patch - TP Not Given DAILY [facility] Metoprolol Tartrate 50 mg 10/01/17 10:00 10/06/17 09:42 Lopressor - PO 50 mg BID [facility] Administration Miscellaneous 1 each 10/01/17 22:00 10/05/17 22:26 Lidoderm Patch Removal MC 1 each DAILY@2200 [facility] Administration Oxycodone HCl 10 mg 10/01/17 05:28 10/06/17 09:47 Roxicodone - PO 10 mg Q4H PRN Administration PAIN LEVEL 7 - 10 Sevelamer Carbonate 1,600 mg 10/01/17 08:00 10/06/17 09:40 Renvela - PO 1,600 mg TIDCM [facility] Administration Trazodone HCl 300 mg 10/01/17 22:00 10/05/17 22:25 Desyrel - PO 300 mg HS [facility] Administration ASSESSMENT/PLAN: 61 year-old male with a PMH significant for HTN, IDDM, ESRD on HD (T,Th,Sat), and left BKA. Admitted for MRSA bacteremia. Thrombi --occlusive thrombus inferior right IJ; presumably from earlier permacath; this is suspected nidus of infection --occlusive thrombus lower right cephalic vein (superficial) --on heparin drip after discussion among Dr. Richards, [employer] Leonarda, Dr. Chaudhry, Dr. Daly due to size of clot --will get heme consult to assess long-term anti-coagulation needs --we will continue to medically manage MRSA bacteremia --continue Dapto on HD days; discussed with Dr. Brown today; will need 6 weeks of dapto Klebsiella UTI --Zosyn completed course (09/26-10/06) Chronic anemia --transfused 2U PRBC on 10/02 --h/h stable ESRD on HD --femoral shiley's are being placed PRN --will need permacath and AV fistula --continue sevelamar IDDM --Levemir 10U --Novolog sliding scale coverage Hypertension --BP stable --continue FEN Fluids: PO intake adequate Electrolytes: replete as indicated Nutrition: renal diet DVT prophylaxis: on heparin drip; PTT goal 60-80. Visit type - Emergency Visit Emergency Visit: Yes ED Registration Date: 09/24/17 Care time: The patient presented to the Emergency Department on the above date and was hospitalized for further evaluation of their emergent condition. - New Patient This patient is new to me today: No - Critical Care Critical Care patient: No
--- NOTE | 2017-10-06 11:08 | DS ---
Physical Exam: SUBJECTIVE: Patient seen and examined OBJECTIVE: Vital Signs Period Temp Pulse Resp BP Sys/Gutierrez Pulse Ox Last 24 Hr 97.2 F-98.4 F 65-77 20-20 145-156/69-92 PHYSICAL EXAM GENERAL: The patient is awake, alert, and fully oriented, in no acute distress. HEAD: Normal with no signs of trauma. EYES: PERRL, extraocular movements intact, sclera anicteric, conjunctiva clear. ENT: Ears normal, nares patent, oropharynx clear without exudates, moist mucous membranes. NECK: Trachea midline, full range of motion, supple. LUNGS: Breath sounds equal, clear to auscultation bilaterally, no wheezes, no crackles, no accessory muscle use. HEART: Regular rate and rhythm, S1, S2 without murmur, rub or gallop. ABDOMEN: Soft, nontender, nondistended, normoactive bowel sounds, no guarding, no rebound, no hepatosplenomegaly, no masses. EXTREMITIES: 2+ pulses, warm, well-perfused, no edema. NEUROLOGICAL: Cranial nerves II through XII grossly intact. Normal speech, gait not observed. PSYCH: Normal mood, normal affect. SKIN: Warm, dry, normal turgor, no rashes or lesions noted. LABS Laboratory Results - last 24 hr 10/02/17 10/05/17 10/05/17 11:10 12:06 17:43 WBC RBC Hgb Hct MCV MCH MCHC RDW Plt Count MPV PTT (Actin FS) Sodium Potassium Chloride Carbon Dioxide Anion Gap BUN Creatinine Creat Clearance w eGFR POC Glucometer 145 209 Random Glucose Calcium Magnesium Total Bilirubin AST ALT Alkaline Phosphatase Total Protein Albumin Blood Type B POSITIVE Antibody Screen Negative Crossmatch See Detail 10/05/17 10/06/17 10/06/17 22:27 06:00 06:00 WBC 13.5 H RBC 2.96 L Hgb 8.7 L Hct 26.6 L MCV 89.9 MCH 29.2 MCHC 32.5 RDW 17.2 H Plt Count 536 H MPV 7.9 PTT (Actin FS) 42.9 H D Sodium Potassium Chloride Carbon Dioxide Anion Gap BUN Creatinine Creat Clearance w eGFR POC Glucometer 187 Random Glucose Calcium Magnesium Total Bilirubin AST ALT Alkaline Phosphatase Total Protein Albumin Blood Type Antibody Screen Crossmatch 10/06/17 10/06/17 06:00 06:35 WBC RBC Hgb Hct MCV MCH MCHC RDW Plt Count MPV PTT (Actin FS) Sodium 130 L Potassium 4.4 D Chloride 93 L Carbon Dioxide 26 Anion Gap 11 BUN 45 H Creatinine 6.7 H Creat Clearance w eGFR 8.43 POC Glucometer 239 Random Glucose 225 H Calcium 8.0 L Magnesium 1.9 Total Bilirubin 0.3 D AST 19 D ALT 25 Alkaline Phosphatase 100 Total Protein 5.8 L Albumin 1.8 L Blood Type Antibody Screen Crossmatch HOSPITAL COURSE: Date of Admission:09/24/17 Date of Discharge: 10/06/17 Minutes to complete discharge: 35 Discharge Summary Reason For Visit: ACUTE KIDNEY INJURY Current Active Problems FROYLAN (acute kidney injury) (Acute) Acute dyspnea (Acute) Acute hyperkalemia (Acute) Bacteremia due to Gram-positive bacteria (Acute) Chest congestion (Acute) Dyspnea (Acute) ESRD (end stage renal disease) (Acute) Hyperglycemia (Acute) Internal jugular vein thrombosis (Acute) Peripheral vascular disease due to secondary diabetes (Acute) Sepsis (Acute) Diabetes mellitus, insulin dependent (IDDM), controlled (Chronic) Condition: Stable - Instructions Referrals: Tawnya Denise MD [Primary Care Provider] - Disposition: TRANSFER ACUTE CARE/OTHER HOSP - Home Medications Comprehensive Discharge Medication List: Ambulatory Orders Ergocalciferol (Vitamin D2) [Vitamin D2] 50,000 unit PO WEEKLY 03/18/17 Albuterol 0.083% Nebulizer Coretta [Ventolin 0.083% Nebulizer Soln -] 1 amp NEB Q4H PRN #120 amp 08/23/17 Amlodipine Besylate [Norvasc -] 10 mg PO DAILY #30 tablet 08/23/17 Ascorbate Calcium [Vitamin C] 500 mg PO DAILY #30 tablet 08/23/17 Duloxetine HCl 30 mg PO DAILY #30 capsule.dr 08/23/17 Fluticasone Prop 0.05% Nasal [Flonase -] 1 - 2 spray NS DAILY #1 spray.pump Folic Acid - 1 mg PO DAILY #30 tablet 08/23/17 Furosemide [Lasix] 80 mg PO DAILY #30 tablet 08/23/17 Mirtazapine [Remeron -] 30 mg PO HS #30 tablet 08/23/17 Sodium Bicarbonate 325 gr PO BID 09/24/17 Acetaminophen [Tylenol .Regular Strength -] 650 mg PO Q6H PRN tablet 10/06/17 Albuterol 2.5/Ipratropium 0.5 [Duoneb -] 1 amp NEB RQID amp 10/06/17 Daptomycin [Cubicin (Restricted To Id) -] 500 mg IVPB MoWeFr@1000 vial Doxazosin Mesylate [Cardura -] 4 mg PO DAILY tablet 10/06/17 Gabapentin [Neurontin -] 100 mg PO BID capsule 10/06/17 Heparin - 1,000 unit IVPUSH PRN PRN vial 10/06/17 Heparin - 5,000 unit IVPUSH PRN PRN vial 10/06/17 Insulin (Levemir) [Levemir Vial] 10 units SQ DAILY@0700 units 10/06/17 Insulin Sliding Scale [Novolog Vial Sliding Scale -] 1 vial SQ ACHS units 10/06 Lidocaine 5% Patch [Lidoderm -] 1 patch TP DAILY patch 10/06/17 Lidocaine Patch Removal [Lidoderm Patch Removal] 1 each MC DAILY@2200 each 02/13 Metoprolol Tartrate [Lopressor -] 50 mg PO BID tablet 10/06/17 Piperacillin/Tazob 2.25 gm [Zosyn -] 2.25 gm IVPB Q8H-IV vial 10/06/17 Sevelamer Carbonate [Renvela -] 1,600 mg PO TIDCM tab 10/06/17 oxyCODONE HCL [Roxicodone -] 10 mg PO Q4H PRN #10 tablet MDD 6 10/06/17 traZODone HCL [Desyrel -] 300 mg PO HS tablet 10/06/17 - Discharge Referral Referred to [facility] No
--- NOTE | 2017-10-06 11:10 | PN ---
Progress Note (short form) - Note Progress Note: Resting in NAD. No SOB or CP. Intake & Output 10/03/17 10/04/17 10/05/17 10/06/17 23:59 23:59 23:59 23:59 Intake Total 175 036 0554 460 Balance 733 574 0706 460 Weight 186 lb 6 oz 189 lb 14.4 oz 185 lb 2 oz 185 lb 3 oz Last Vital Signs Temp Pulse Resp BP Pulse Ox 97.2 F L 65 20 156/69 96 10/06/17 06:30 10/06/17 06:30 10/06/17 06:30 10/06/17 06:30 10/03/17 21:00 Active Medications Acetaminophen (Tylenol -) 650 mg PO Q6H PRN PRN Reason: PAIN LEVEL 7 - 10 Last Admin: 10/04/17 21:37 Dose: 650 mg Doxazosin Mesylate (Cardura -) 4 mg PO DAILY [facility] Last Admin: 10/06/17 09:41 Dose: 4 mg Gabapentin (Neurontin -) 100 mg PO BID [facility] Last Admin: 10/06/17 09:42 Dose: 100 mg Heparin Sodium (Porcine) (Heparin -) 1,000 unit IVPUSH PRN PRN PRN Reason: Heparin Last Admin: 10/04/17 17:46 Dose: 1,000 unit Heparin Sodium (Porcine) (Heparin -) 5,000 unit IVPUSH PRN PRN PRN Reason: Heparin Last Admin: 10/05/17 00:09 Dose: 5,000 unit Piperacillin Sod/Tazobactam (Sod 2.25 gm/ Dextrose) 50 mls @ 100 mls/hr IVPB Q8H-IV [facility]; Protocol Last Admin: 10/06/17 09:42 Dose: 100 mls/hr Daptomycin 500 mg/ Sodium (Chloride) 100 mls @ 200 mls/hr IVPB MoWeFr@1000 [facility] ; Protocol Last Admin: 10/04/17 17:07 Dose: Not Given Sodium Chloride (Normal Saline -) 250 mls @ 3,000 mls/hr IV PRN PRN PRN Reason: Hypotension during Dialysis Stop: 10/03/17 17:40 HEPARIN SOD,PORK IN 0.45% NACL (Heparin-1/2ns 25,000 Units/500) 25,000 units in 500 mls @ 20 mls/hr IVPB TITR [facility]; Protocol Last Admin: 10/06/17 05:00 Dose: 1,000 units/hr, 20 mls/hr Insulin Aspart (Novolog Vial Sliding Scale -) 1 vial SQ ACHS [facility]; Protocol Last Admin: 10/06/17 06:40 Dose: 6 units Insulin Detemir (Levemir Vial) 10 units SQ DAILY@0700 [facility] Last Admin: 10/06/17 06:41 Dose: 10 units Lidocaine (Lidoderm Patch -) 1 patch TP DAILY [facility] Last Admin: 10/06/17 09:53 Dose: Not Given Metoprolol Tartrate (Lopressor -) 50 mg PO BID [facility] Last Admin: 10/06/17 09:42 Dose: 50 mg Miscellaneous (Lidoderm Patch Removal) 1 each MC DAILY@2200 [facility] Last Admin: 10/05/17 22:26 Dose: 1 each Oxycodone HCl (Roxicodone -) 10 mg PO Q4H PRN PRN Reason: PAIN LEVEL 7 - 10 Last Admin: 10/06/17 09:47 Dose: 10 mg Sevelamer Carbonate (Renvela -) 1,600 mg PO TIDCM [facility] Last Admin: 10/06/17 09:40 Dose: 1,600 mg Trazodone HCl (Desyrel -) 300 mg PO HS [facility] Last Admin: 10/05/17 22:25 Dose: 300 mg Constitutional: Yes: No Distress Neck: Yes: Supple Respiratory: Yes: diminished at the bases Gastrointestinal: Yes: Normal Bowel Sounds, Soft Cardiovascular: Yes: Regular Rate and Rhythm JVD: No Carotid Bruit: No Heart Sounds: Yes: S1, S2 Edema: No Laboratory Results - last 24 hr 10/02/17 10/05/17 10/05/17 11:10 12:06 17:43 WBC RBC Hgb Hct MCV MCH MCHC RDW Plt Count MPV PTT (Actin FS) Sodium Potassium Chloride Carbon Dioxide Anion Gap BUN Creatinine Creat Clearance w eGFR POC Glucometer 145 209 Random Glucose Calcium Magnesium Total Bilirubin AST ALT Alkaline Phosphatase Total Protein Albumin Blood Type B POSITIVE Antibody Screen Negative Crossmatch See Detail 10/05/17 10/06/17 10/06/17 22:27 06:00 06:00 WBC 13.5 H RBC 2.96 L Hgb 8.7 L Hct 26.6 L MCV 89.9 MCH 29.2 MCHC 32.5 RDW 17.2 H Plt Count 536 H MPV 7.9 PTT (Actin FS) 42.9 H D Sodium Potassium Chloride Carbon Dioxide Anion Gap BUN Creatinine Creat Clearance w eGFR POC Glucometer 187 Random Glucose Calcium Magnesium Total Bilirubin AST ALT Alkaline Phosphatase Total Protein Albumin Blood Type Antibody Screen Crossmatch 10/06/17 10/06/17 06:00 06:35 WBC RBC Hgb Hct MCV MCH MCHC RDW Plt Count MPV PTT (Actin FS) Sodium 130 L Potassium 4.4 D Chloride 93 L Carbon Dioxide 26 Anion Gap 11 BUN 45 H Creatinine 6.7 H Creat Clearance w eGFR 8.43 POC Glucometer 239 Random Glucose 225 H Calcium 8.0 L Magnesium 1.9 Total Bilirubin 0.3 D AST 19 D ALT 25 Alkaline Phosphatase 100 Total Protein 5.8 L Albumin 1.8 L Blood Type Antibody Screen Crossmatch Problem List - Problems (1) Sepsis Code(s): A41.9 - SEPSIS, UNSPECIFIED ORGANISM (2) ESRD (end stage renal disease) Code(s): N18.6 - END STAGE RENAL DISEASE (3) Diabetes mellitus, insulin dependent (IDDM), controlled Code(s): E11.9 - TYPE 2 DIABETES MELLITUS WITHOUT COMPLICATIONS; Z79.4 - FDC (CURRENT) USE OF INSULIN (4) Amputation, below knee, unilateral, traumatic Code(s): S88.119A - COMPLETE TRAUM AMP AT LEV BETW KN & ANKL, UNSP LOW LEG, INIT (5) Bacteremia due to Gram-positive bacteria Code(s): R78.81 - BACTEREMIA (6) Dyspnea Code(s): R06.00 - DYSPNEA, UNSPECIFIED (7) Acute dyspnea Code(s): R06.00 - DYSPNEA, UNSPECIFIED (8) Chest congestion Code(s): R09.89 - OTH SYMPTOMS AND SIGNS INVOLVING THE CIRC AND RESP SYSTEMS (9) Peripheral vascular disease due to secondary diabetes Code(s): E13.51 - OTH DIABETES W DIABETIC PERIPHERAL ANGIOPATHY W/O GANGRENE (10) HTN (hypertension) Code(s): I10 - ESSENTIAL (PRIMARY) HYPERTENSION Qualifiers: Hypertension type: essential hypertension Qualified Code(s): I10 - Essential (primary) hypertension IMP GRAM+ BACTEREMIA/SEPSIS DYSPNEA LOW SUSPICION OF PNA / BASILAR ATELECTASIS ON CXR ESRD ON HD PVD S/P LEFT BKA IDDM HTN PLAN ABX PER ID O2 INHALED BRONCHODILATORS HD PER RENAL VTE PROPHYLAXIS BD TX PRN D/C PLANNING DR CARROLL
--- NOTE | 2017-10-06 11:55 | PN ---
Progress Note, Physician Chief Complaint: The patient seen in his room. Reports no new problems. No fever. . The Permacath is out. - Current Medication List Current Medications: Active Medications Acetaminophen (Tylenol -) 650 mg PO Q6H PRN PRN Reason: PAIN LEVEL 7 - 10 Last Admin: 10/04/17 21:37 Dose: 650 mg Doxazosin Mesylate (Cardura -) 4 mg PO DAILY [facility] Last Admin: 10/06/17 09:41 Dose: 4 mg Gabapentin (Neurontin -) 100 mg PO BID [facility] Last Admin: 10/06/17 09:42 Dose: 100 mg Heparin Sodium (Porcine) (Heparin -) 1,000 unit IVPUSH PRN PRN PRN Reason: Heparin Last Admin: 10/04/17 17:46 Dose: 1,000 unit Heparin Sodium (Porcine) (Heparin -) 5,000 unit IVPUSH PRN PRN PRN Reason: Heparin Last Admin: 10/05/17 00:09 Dose: 5,000 unit Piperacillin Sod/Tazobactam (Sod 2.25 gm/ Dextrose) 50 mls @ 100 mls/hr IVPB Q8H-IV [facility]; Protocol Last Admin: 10/06/17 09:42 Dose: 100 mls/hr Daptomycin 500 mg/ Sodium (Chloride) 100 mls @ 200 mls/hr IVPB MoWeFr@1000 [facility] ; Protocol Last Admin: 10/04/17 17:07 Dose: Not Given Sodium Chloride (Normal Saline -) 250 mls @ 3,000 mls/hr IV PRN PRN PRN Reason: Hypotension during Dialysis Stop: 10/03/17 17:40 HEPARIN SOD,PORK IN 0.45% NACL (Heparin-1/2ns 25,000 Units/500) 25,000 units in 500 mls @ 20 mls/hr IVPB TITR [facility]; Protocol Last Admin: 10/06/17 05:00 Dose: 1,000 units/hr, 20 mls/hr Insulin Aspart (Novolog Vial Sliding Scale -) 1 vial SQ ACHS [facility]; Protocol Last Admin: 10/06/17 06:40 Dose: 6 units Insulin Detemir (Levemir Vial) 10 units SQ DAILY@0700 [facility] Last Admin: 10/06/17 06:41 Dose: 10 units Lidocaine (Lidoderm Patch -) 1 patch TP DAILY [facility] Last Admin: 10/06/17 09:53 Dose: Not Given Metoprolol Tartrate (Lopressor -) 50 mg PO BID [facility] Last Admin: 10/06/17 09:42 Dose: 50 mg Miscellaneous (Lidoderm Patch Removal) 1 each MC DAILY@2200 [facility] Last Admin: 10/05/17 22:26 Dose: 1 each Oxycodone HCl (Roxicodone -) 10 mg PO Q4H PRN PRN Reason: PAIN LEVEL 7 - 10 Last Admin: 10/06/17 09:47 Dose: 10 mg Sevelamer Carbonate (Renvela -) 1,600 mg PO TIDCM [facility] Last Admin: 10/06/17 09:40 Dose: 1,600 mg Trazodone HCl (Desyrel -) 300 mg PO HS [facility] Last Admin: 10/05/17 22:25 Dose: 300 mg - Objective Vital Signs: Vital Signs Temperature 97.2 F L 10/06/17 06:30 Pulse Rate 65 10/06/17 06:30 Respiratory Rate 20 10/06/17 06:30 Blood Pressure 156/69 10/06/17 06:30 O2 Sat by Pulse Oximetry (%) 96 10/06/17 09:00 Constitutional: Yes: Well Nourished, Calm Eyes: Yes: Conjunctiva Clear HENT: Yes: Atraumatic Neck: Yes: Trachea Midline Cardiovascular: Yes: S1, S2 Respiratory: Yes: CTA Bilaterally, Diminished Gastrointestinal: Yes: Normal Bowel Sounds, Soft Genitourinary: No: CVA Tenderness - Left, CVA Tenderness - Right Musculoskeletal: Yes: Back Pain Neurological: Yes: Alert, Oriented Labs: CBC, BMP 10/06/17 06:00 10/06/17 06:00 INR, PTT INR 1.14 (0.82-1.09) 09/25/17 10:38 Problem List - Problems (1) Bacteremia due to Gram-positive bacteria Code(s): R78.81 - BACTEREMIA (2) Dyspnea Code(s): R06.00 - DYSPNEA, UNSPECIFIED (3) ESRD (end stage renal disease) Code(s): N18.6 - END STAGE RENAL DISEASE (4) Hyperglycemia Code(s): R73.9 - HYPERGLYCEMIA, UNSPECIFIED (5) Internal jugular vein thrombosis Code(s): I82.C19 - ACUTE EMBOLISM AND THROMBOSIS OF UNSP INTERNAL JUGULAR VEIN Qualifiers: Laterality: right Qualified Code(s): I82.C11 - Acute embolism and thrombosis of right internal jugular vein (6) Sepsis Code(s): A41.9 - SEPSIS, UNSPECIFIED ORGANISM Qualifiers: Sepsis type: methicillin susceptible Staphylococcus aureus Qualified Code(s ): A41.01 - Sepsis due to Methicillin susceptible Staphylococcus aureus (7) Diabetes mellitus, insulin dependent (IDDM), controlled Code(s): E11.9 - TYPE 2 DIABETES MELLITUS WITHOUT COMPLICATIONS; Z79.4 - [employer]STRUCTION [employer] (CURRENT) USE OF INSULIN (8) Amputation, below knee, unilateral, traumatic Code(s): S88.119A - COMPLETE TRAUM AMP AT LEV BETW KN & ANKL, UNSP LOW LEG, INIT (9) Diabetes mellitus Code(s): E11.9 - TYPE 2 DIABETES MELLITUS WITHOUT COMPLICATIONS Qualifiers: Diabetes mellitus type: type 2 Diabetes mellitus fpc insulin use: without fpc use Diabetes mellitus complication status: without complication Qualified Code(s): E11.9 - Type 2 diabetes mellitus without complications (10) Diabetic neuropathy Code(s): E11.40 - TYPE 2 DIABETES MELLITUS WITH DIABETIC NEUROPATHY, UNSP Qualifiers: Diabetes mellitus type: type 2 Diabetes mellitus complication detail: diabetic polyneuropathy Qualified Code(s): E11.42 - Type 2 diabetes mellitus with diabetic polyneuropathy (11) Dialysis patient Code(s): Z99.2 - DEPENDENCE ON RENAL DIALYSIS (12) HTN (hypertension) Code(s): I10 - ESSENTIAL (PRIMARY) HYPERTENSION Qualifiers: Hypertension type: essential hypertension Qualified Code(s): I10 - Essential (primary) hypertension (13) Severe anemia Code(s): D64.9 - ANEMIA, UNSPECIFIED Assessment/Plan 62 year old AA gentleman with PMhx of ESRD on HD (TTS) secondary to suspected diabetic nephropathy, DM, Hypertension, PVD who presented outpatient blood cultures that were positive for gram positive Cocci. ESRD on HD Hyperkalemia Hyponatremia Gram + bacteremia/Sepsis Anemia Pericardial effusion The patient has IJ thrombosis. NO HD access. IV antibiotics well tolerated. Will continue the same. Waiting transfer to a tertiary center. If the patient is still here, will have Femoral catheter for dialysis. Aniyah Chaudhry MD
[2017-10-06] MEDS ORDERED: INSULIN (NOVOLOG) ASPART 100 UNITS/ML 10ML VIAL ONE ×2 (12:22→21:56)
--- NOTE | 2017-10-06 13:05 | PN ---
Progress Note, Physician History of Present Illness: Afebrile, right neck discomfort improved, last blood cultures sent shows clearance of MRSA bacteremia. - Current Medication List Current Medications: Active Medications Acetaminophen (Tylenol -) 650 mg PO Q6H PRN PRN Reason: PAIN LEVEL 7 - 10 Last Admin: 10/04/17 21:37 Dose: 650 mg Doxazosin Mesylate (Cardura -) 4 mg PO DAILY [facility] Last Admin: 10/06/17 09:41 Dose: 4 mg Gabapentin (Neurontin -) 100 mg PO BID [facility] Last Admin: 10/06/17 09:42 Dose: 100 mg Heparin Sodium (Porcine) (Heparin -) 1,000 unit IVPUSH PRN PRN PRN Reason: Heparin Last Admin: 10/04/17 17:46 Dose: 1,000 unit Heparin Sodium (Porcine) (Heparin -) 5,000 unit IVPUSH PRN PRN PRN Reason: Heparin Last Admin: 10/05/17 00:09 Dose: 5,000 unit Piperacillin Sod/Tazobactam (Sod 2.25 gm/ Dextrose) 50 mls @ 100 mls/hr IVPB Q8H-IV [facility]; Protocol Last Admin: 10/06/17 09:42 Dose: 100 mls/hr Daptomycin 500 mg/ Sodium (Chloride) 100 mls @ 200 mls/hr IVPB MoWeFr@1000 [facility] ; Protocol Last Admin: 10/04/17 17:07 Dose: Not Given Sodium Chloride (Normal Saline -) 250 mls @ 3,000 mls/hr IV PRN PRN PRN Reason: Hypotension during Dialysis Stop: 10/03/17 17:40 HEPARIN SOD,PORK IN 0.45% NACL (Heparin-1/2ns 25,000 Units/500) 25,000 units in 500 mls @ 20 mls/hr IVPB TITR [facility]; Protocol Last Admin: 10/06/17 05:00 Dose: 1,000 units/hr, 20 mls/hr Insulin Aspart (Novolog Vial Sliding Scale -) 1 vial SQ ACHS [facility]; Protocol Last Admin: 10/06/17 12:33 Dose: 8 units Insulin Detemir (Levemir Vial) 10 units SQ DAILY@0700 [facility] Last Admin: 10/06/17 06:41 Dose: 10 units Lidocaine (Lidoderm Patch -) 1 patch TP DAILY [facility] Last Admin: 10/06/17 09:53 Dose: Not Given Metoprolol Tartrate (Lopressor -) 50 mg PO BID [facility] Last Admin: 10/06/17 09:42 Dose: 50 mg Miscellaneous (Lidoderm Patch Removal) 1 each MC DAILY@2200 [facility] Last Admin: 10/05/17 22:26 Dose: 1 each Oxycodone HCl (Roxicodone -) 10 mg PO Q4H PRN PRN Reason: PAIN LEVEL 7 - 10 Last Admin: 10/06/17 09:47 Dose: 10 mg Sevelamer Carbonate (Renvela -) 1,600 mg PO TIDCM [facility] Last Admin: 10/06/17 12:13 Dose: Not Given Trazodone HCl (Desyrel -) 300 mg PO HS [facility] Last Admin: 10/05/17 22:25 Dose: 300 mg - Objective Vital Signs: Vital Signs Temperature 97.8 F 10/06/17 10:00 Pulse Rate 68 10/06/17 10:00 Respiratory Rate 18 10/06/17 10:00 Blood Pressure 154/70 10/06/17 10:00 O2 Sat by Pulse Oximetry (%) 96 10/06/17 09:00 Constitutional: Yes: No Distress, Calm Neck: Yes: Supple Cardiovascular: Yes: Regular Rate and Rhythm Respiratory: Yes: Regular, Diminished Gastrointestinal: Yes: Normal Bowel Sounds, Soft Extremities: Yes: Amputation (Left BKA) Edema: No Labs: CBC, BMP 10/06/17 06:00 10/06/17 06:00 INR, PTT INR 1.14 (0.82-1.09) 09/25/17 10:38 Problem List - Problems (1) Bacteremia due to Gram-positive bacteria Code(s): R78.81 - BACTEREMIA (2) ESRD (end stage renal disease) Code(s): N18.6 - END STAGE RENAL DISEASE (3) Sepsis Code(s): A41.9 - SEPSIS, UNSPECIFIED ORGANISM Qualifiers: Sepsis type: methicillin susceptible Staphylococcus aureus Qualified Code(s ): A41.01 - Sepsis due to Methicillin susceptible Staphylococcus aureus (4) Diabetes mellitus, insulin dependent (IDDM), controlled Code(s): E11.9 - TYPE 2 DIABETES MELLITUS WITHOUT COMPLICATIONS; Z79.4 - [employer]ELP [employer] (CURRENT) USE OF INSULIN (5) Hyponatremia Code(s): E87.1 - HYPO-OSMOLALITY AND HYPONATREMIA (6) Anemia Code(s): D64.9 - ANEMIA, UNSPECIFIED Qualifiers: Anemia type: due to chronic kidney disease (7) Dialysis patient Code(s): Z99.2 - DEPENDENCE ON RENAL DIALYSIS (8) S/P amputation Code(s): Z89.9 - ACQUIRED ABSENCE OF LIMB, UNSPECIFIED (9) Type 2 diabetes mellitus with foot ulcer Code(s): E11.621 - TYPE 2 DIABETES MELLITUS WITH FOOT ULCER; L97.509 - NON- PRESSURE CHRONIC ULCER OTH PRT UNSP FOOT W UNSP SEVERITY (10) Internal jugular vein thrombosis Code(s): I82.C19 - ACUTE EMBOLISM AND THROMBOSIS OF UNSP INTERNAL JUGULAR VEIN Qualifiers: Laterality: right Qualified Code(s): I82.C11 - Acute embolism and thrombosis of right internal jugular vein Assessment/Plan 09/30/2017 CHAKA: Normal biventricular size and fxn, mild AR, [place], MR, no SIS thrombus or vegetations 1. MRSA bacteremia suspect line sepsis from indwelling dialysis catheter - catheter removed - intermittently febrile due to sepsis 2. ESRD on HD, suspected diabetic nephropathy with hyponatremia 3. 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 Type 2 DM 5. HTN/HCVD 6. PAD 7. Anemia of chronic kidney disease 8. Bacteruria 9. Right IJ thrombus probably catheter related, possible septic 10. PAD s/p left BKA PLAN: 1. Antibiotic course per ID, repeat surveillance cx demonstrated clearance post catheter removal . CHAKA shows no evidence of vegetations 2. Will need access for HD 3. Consideration for Right IJ thrombectomy by IR, currently on heparin gtt 4. Continue Lopressor 50 bid, Cardura 4 qd
[2017-10-06 13:46] LABS: EOS % 0.5 % (0-4.5); HEMOGLOBIN 8.6 GM/dL (11.7-16.9); LYMPH % 11.2 % (8-40); MCH 29.2 pg (25.7-33.7); MCHC 31.9 g/dl (32.0-35.9); MEAN CELL VOLUME 91.4 fl (80-96); MEAN PLT VOLUME 8.5 fl (7.5-11.1); MONO % 4.4 % (3.8-10.2); NEUT % 82.9 % (42.8-82.8); PLATELET COUNT 538 K/MM3 (134-434); RBC 2.95 M/mm3 (4.00-5.60); RDW 17.7 % (11.9-15.9); WHITE BLOOD COUNT 13.8 K/mm3 (4.0-10.0)
[2017-10-06] MEDS: HEPARIN NA (PORCINE) 5,000 UNITS/ML 1ML VIAL IVPUSH PRN (15:04)
[2017-10-06 15:34] LABS: PLATELET ESTIMATE INCREASED
--- NOTE | 2017-10-06 15:34 | PN ---
Progress Note, Physician History of Present Illness: Pt states he feels much better. Has been afebrile, without distress. Rt neck less painful. - Current Medication List Current Medications: Active Medications Acetaminophen (Tylenol -) 650 mg PO Q6H PRN PRN Reason: PAIN LEVEL 7 - 10 Last Admin: 10/04/17 21:37 Dose: 650 mg Doxazosin Mesylate (Cardura -) 4 mg PO DAILY [facility] Last Admin: 10/06/17 09:41 Dose: 4 mg Gabapentin (Neurontin -) 100 mg PO BID [facility] Last Admin: 10/06/17 09:42 Dose: 100 mg Heparin Sodium (Porcine) (Heparin -) 1,000 unit IVPUSH PRN PRN PRN Reason: Heparin Last Admin: 10/06/17 15:04 Dose: 1,000 unit Heparin Sodium (Porcine) (Heparin -) 5,000 unit IVPUSH PRN PRN PRN Reason: Heparin Last Admin: 10/05/17 00:09 Dose: 5,000 unit Piperacillin Sod/Tazobactam (Sod 2.25 gm/ Dextrose) 50 mls @ 100 mls/hr IVPB Q8H-IV [facility]; Protocol Last Admin: 10/06/17 09:42 Dose: 100 mls/hr Daptomycin 500 mg/ Sodium (Chloride) 100 mls @ 200 mls/hr IVPB MoWeFr@1000 [facility] ; Protocol Last Admin: 10/04/17 17:07 Dose: Not Given Sodium Chloride (Normal Saline -) 250 mls @ 3,000 mls/hr IV PRN PRN PRN Reason: Hypotension during Dialysis Stop: 10/03/17 17:40 HEPARIN SOD,PORK IN 0.45% NACL (Heparin-1/2ns 25,000 Units/500) 25,000 units in 500 mls @ 20 mls/hr IVPB TITR [facility]; Protocol Last Titration: 10/06/17 15:04 Dose: 1,600 units/hr, 32 mls/hr Insulin Aspart (Novolog Vial Sliding Scale -) 1 vial SQ ACHS [facility]; Protocol Last Admin: 10/06/17 12:33 Dose: 8 units Insulin Detemir (Levemir Vial) 10 units SQ DAILY@0700 [facility] Last Admin: 10/06/17 06:41 Dose: 10 units Lidocaine (Lidoderm Patch -) 1 patch TP DAILY [facility] Last Admin: 10/06/17 09:53 Dose: Not Given Metoprolol Tartrate (Lopressor -) 50 mg PO BID [facility] Last Admin: 10/06/17 09:42 Dose: 50 mg Miscellaneous (Lidoderm Patch Removal) 1 each MC DAILY@2200 [facility] Last Admin: 10/05/17 22:26 Dose: 1 each Sevelamer Carbonate (Renvela -) 1,600 mg PO TIDCM [facility] Last Admin: 10/06/17 12:13 Dose: Not Given Trazodone HCl (Desyrel -) 300 mg PO HS [facility] Last Admin: 10/05/17 22:25 Dose: 300 mg - Objective Vital Signs: Vital Signs Temperature 97.8 F 10/06/17 10:00 Pulse Rate 68 10/06/17 10:00 Respiratory Rate 18 10/06/17 10:00 Blood Pressure 154/70 10/06/17 10:00 O2 Sat by Pulse Oximetry (%) 96 10/06/17 09:00 Constitutional: Yes: No Distress, Calm Cardiovascular: Yes: Regular Rate and Rhythm Respiratory: Yes: Regular Gastrointestinal: Yes: Normal Bowel Sounds, Soft Extremities: Yes: Amputation (Lt BKA) Edema: RUE: 3+ Neurological: Yes: Alert Labs: CBC, BMP 10/06/17 12:55 10/06/17 06:00 INR, PTT INR 1.14 (0.82-1.09) 09/25/17 10:38 Microbiology 10/03/17 14:35 Blood - Peripheral Venous Blood Culture - Preliminary NO GROWTH OBTAINED AFTER 72 HOURS, INCUBATION TO CONTINUE FOR 2 DAYS. 10/04/17 08:30 Blood - Pre-Dialysis Blood Culture - Preliminary NO GROWTH OBTAINED AFTER 48 HOURS, INCUBATION TO CONTINUE FOR 3 DAYS. 10/04/17 08:30 Blood - Pre-Dialysis Blood Culture - Preliminary NO GROWTH OBTAINED AFTER 48 HOURS, INCUBATION TO CONTINUE FOR 3 DAYS. 10/03/17 15:00 Blood - Peripheral Venous Blood Culture - Preliminary NO GROWTH OBTAINED AFTER 48 HOURS, INCUBATION TO CONTINUE FOR 3 DAYS. 09/29/17 14:49 Blood - Peripheral Venous Blood Culture - Final Mr S Aureus 09/29/17 15:20 Blood - Peripheral Venous Blood Culture - Final Mr S Aureus 09/28/17 06:15 Blood - Peripheral Venous Blood Culture - Final Mr S Aureus 09/28/17 06:00 Blood - Peripheral Venous Blood Culture - Final S Aureus 09/25/17 10:50 Wound Gram Stain - Final 09/25/17 10:50 Wound Wound Culture - Final S Aureus 09/26/17 12:10 Sputum - Expectorated Gram Stain - Final 09/26/17 12:10 Sputum - Expectorated Sputum Culture - Final NORMAL RESPIRATORY SHERIE 09/26/17 17:35 Blood - Peripheral Venous Blood Culture - Final Presumptive Mrsa (Pbp2a Pos) 09/26/17 17:35 Blood - Peripheral Venous Blood Culture - Final Presumptive Mrsa (Pbp2a Pos) 09/24/17 11:24 Blood - Peripheral Venous Blood Culture - Final Staphylococcus Latex Coag Pos 09/24/17 11:24 Blood - Peripheral Venous Blood Culture - Final S Aureus 09/24/17 16:10 Urine - Urine Clean Catch Urine Culture - Final Klebsiella Pneumoniae Klebsiella Pneumoniae#2 Problem List - Problems (1) Bacteremia due to Gram-positive bacteria Code(s): R78.81 - BACTEREMIA (2) Peripheral vascular disease due to secondary diabetes Code(s): E13.51 - OTH DIABETES W DIABETIC PERIPHERAL ANGIOPATHY W/O GANGRENE (3) Diabetes mellitus, insulin dependent (IDDM), controlled Code(s): E11.9 - TYPE 2 DIABETES MELLITUS WITHOUT COMPLICATIONS; Z79.4 - PACU RN (CURRENT) USE OF INSULIN (4) HTN (hypertension) Code(s): I10 - ESSENTIAL (PRIMARY) HYPERTENSION Qualifiers: Hypertension type: essential hypertension Qualified Code(s): I10 - Essential (primary) hypertension Assessment/Plan MRSA bacteremia IJ/cephalic thrombosis ESRD on HD Fever- resolved Leukocytosis hyperkalemia hyponatremia pericardial effusion - continue Daptomycin, d/c Zosyn - check cpk - blood cultures now without growth - for possible transfer for thrombectomy - continue monitor clinically stable at this time
[2017-10-06] MEDS ORDERED: traZODone HCL 50 MG TABLET (FP) ONE (19:42)
[2017-10-06] MEDS: traZODone HCL 100 MG TABLET (FP) PO SCH (21:53)
[2017-10-06] MEDS ORDERED: INSULIN (LEVEMIR) 100 UNITS/ML UNITS SQ ONE (21:57)
[2017-10-06] MEDS: LIDOCAINE PATCH REMOVAL MC SCH (22:00)
[2017-10-07] MEDS: HEPARIN SOD,PORK IN 0.45% NACL 25,000 UNITS/500 ML INFUS.BAG IVPB SCH ×2 (01:31→08:30)
[2017-10-07] MEDS: oxyCODONE HCL 5 MG TABLET PO PRN ×2 (04:43→18:33)
[2017-10-07] MEDS: INSULIN (LEVEMIR) 100 UNITS/ML UNITS SQ SCH (06:40)
[2017-10-07] MEDS: INSULIN SLIDING SCALE (NOVOLOG) 1 VIAL SQ SCH ×4 (06:41→21:46)
[2017-10-07] MEDS: SEVELAMER CARBONATE 800 MG TAB (FP) PO SCH ×3 (08:30→17:06)
--- NOTE | 2017-10-07 08:34 | PN ---
Progress Note, Physician History of Present Illness: Afebrile, right neck discomfort improved, last blood cultures sent shows clearance of MRSA bacteremia. - Current Medication List Current Medications: Active Medications Acetaminophen (Tylenol -) 650 mg PO Q6H PRN PRN Reason: PAIN LEVEL 4 - 6 Last Admin: 10/04/17 21:37 Dose: 650 mg Doxazosin Mesylate (Cardura -) 4 mg PO DAILY [facility] Last Admin: 10/06/17 09:41 Dose: 4 mg Gabapentin (Neurontin -) 100 mg PO BID [facility] Last Admin: 10/06/17 21:54 Dose: 100 mg Daptomycin 500 mg/ Sodium (Chloride) 100 mls @ 200 mls/hr IVPB MoWeFr@1000 [facility] ; Protocol Last Admin: 10/04/17 17:07 Dose: Not Given Sodium Chloride (Normal Saline -) 250 mls @ 3,000 mls/hr IV PRN PRN PRN Reason: Hypotension during Dialysis Stop: 10/03/17 17:40 Insulin Aspart (Novolog Vial Sliding Scale -) 1 vial SQ [facility]; Protocol Last Admin: 10/07/17 06:41 Dose: 6 units Insulin Detemir (Levemir Vial) 10 units SQ DAILY@0700 [facility] Last Admin: 10/07/17 06:40 Dose: 10 units Lidocaine (Lidoderm Patch -) 1 patch TP DAILY [facility] Last Admin: 10/06/17 09:53 Dose: Not Given Metoprolol Tartrate (Lopressor -) 50 mg PO BID [facility] Last Admin: 10/06/17 21:54 Dose: 50 mg Miscellaneous (Lidoderm Patch Removal) 1 each MC DAILY@2200 [facility] Last Admin: 10/06/17 22:00 Dose: Not Given Oxycodone HCl (Roxicodone -) 10 mg PO Q4H PRN PRN Reason: PAIN LEVEL 7 - 10 Last Admin: 10/07/17 04:43 Dose: 10 mg Sevelamer Carbonate (Renvela -) 1,600 mg PO TIDCM [facility] Last Admin: 10/07/17 08:30 Dose: 1,600 mg Trazodone HCl (Desyrel -) 300 mg PO HS [facility] Last Admin: 10/06/17 21:53 Dose: 300 mg - Objective Vital Signs: Vital Signs Temperature 98.7 F 10/07/17 06:00 Pulse Rate 69 10/07/17 06:00 Respiratory Rate 20 10/07/17 06:00 Blood Pressure 140/69 10/07/17 06:00 O2 Sat by Pulse Oximetry (%) 96 10/06/17 21:00 Constitutional: Yes: No Distress, Calm Neck: Yes: Supple Cardiovascular: Yes: Regular Rate and Rhythm Respiratory: Yes: Regular, CTA Bilaterally Gastrointestinal: Yes: Normal Bowel Sounds, Soft Extremities: Yes: Amputation (Left BKA) Edema: No Labs: INR, PTT INR 1.14 (0.82-1.09) 09/25/17 10:38 Problem List - Problems (1) Bacteremia due to Gram-positive bacteria Code(s): R78.81 - BACTEREMIA (2) ESRD (end stage renal disease) Code(s): N18.6 - END STAGE RENAL DISEASE (3) Sepsis Code(s): A41.9 - SEPSIS, UNSPECIFIED ORGANISM Qualifiers: Sepsis type: methicillin susceptible Staphylococcus aureus Qualified Code(s ): A41.01 - Sepsis due to Methicillin susceptible Staphylococcus aureus (4) Diabetes mellitus, insulin dependent (IDDM), controlled Code(s): E11.9 - TYPE 2 DIABETES MELLITUS WITHOUT COMPLICATIONS; Z79.4 - NURSING HOME (CURRENT) USE OF INSULIN (5) Hyponatremia Code(s): E87.1 - HYPO-OSMOLALITY AND HYPONATREMIA (6) Anemia Code(s): D64.9 - ANEMIA, UNSPECIFIED Qualifiers: Anemia type: due to chronic kidney disease (7) Dialysis patient Code(s): Z99.2 - DEPENDENCE ON RENAL DIALYSIS (8) S/P amputation Code(s): Z89.9 - ACQUIRED ABSENCE OF LIMB, UNSPECIFIED (9) Type 2 diabetes mellitus with foot ulcer Code(s): E11.621 - TYPE 2 DIABETES MELLITUS WITH FOOT ULCER; L97.509 - NON- PRESSURE CHRONIC ULCER OTH PRT UNSP FOOT W UNSP SEVERITY (10) Internal jugular vein thrombosis Code(s): I82.C19 - ACUTE EMBOLISM AND THROMBOSIS OF UNSP INTERNAL JUGULAR VEIN Qualifiers: Laterality: right Qualified Code(s): I82.C11 - Acute embolism and thrombosis of right internal jugular vein Assessment/Plan 09/30/2017 [facility]: Normal biventricular size and fxn, mild AR, [place], MR, no SIS thrombus or vegetations 1. MRSA bacteremia suspect line sepsis from indwelling dialysis catheter - catheter removed - intermittently febrile due to sepsis 2. ESRD on HD, suspected diabetic nephropathy with hyponatremia 3. 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 Type 2 DM 5. HTN/HCVD 6. PAD 7. Anemia of chronic kidney disease 8. Bacteruria 9. Right IJ thrombus probably catheter related, possible septic 10. PAD s/p left BKA PLAN: 1. Antibiotic course per ID, repeat surveillance cx demonstrated clearance post catheter removal . [facility] shows no evidence of vegetations 2. Will need access for HD 3. Consideration for Right IJ thrombectomy by IR, currently on heparin gtt 4. Continue Lopressor 50 bid, Cardura 4 qd
[2017-10-07 08:49] LABS: BASO % 0.3 % (0-2.0); EOS % 0.8 % (0-4.5); HEMATOCRIT 26.8 % (35.4-49); HEMOGLOBIN 8.7 GM/dL (11.7-16.9); MCH 29.2 pg (25.7-33.7); MCHC 32.3 g/dl (32.0-35.9); MEAN CELL VOLUME 90.6 fl (80-96); MEAN PLT VOLUME 7.6 fl (7.5-11.1); MONO % 4.9 % (3.8-10.2); PLATELET COUNT 641 K/MM3 (134-434); RBC 2.96 M/mm3 (4.00-5.60); WHITE BLOOD COUNT 10.3 K/mm3 (4.0-10.0)
[2017-10-07 09:11] LABS: CHLORIDE 93 mmol/L (98-107); POTASSIUM 4.3 mmol/L (3.5-5.1); SODIUM 131 mmol/L (136-145)
[2017-10-07 09:20] LABS: ALBUMIN 1.8 g/dl (3.4-5.0); ALK PHOS 111 U/L (45-117); ANION GAP 12 (8-16); BILIRUBIN,TOTAL 0.3 mg/dL (0.2-1.0); BLOOD UREA NITROGEN 54 mg/dL (7-18); CALCIUM 7.8 mg/dL (8.5-10.1); CO2 26 mmol/L (21-32); GLUCOSE,RANDOM 189 mg/dL (74-106); MAGNESIUM 2.1 mg/dL (1.8-2.4); SGOT/AST 11 U/L (15-37); SGPT/ALT 22 U/L (12-78); TOT PROT 5.7 g/dl (6.4-8.2)
[2017-10-07] MEDS ORDERED: PT OWN MED DRAWER 7, Y5N ONE ×2 (09:42→15:51)
[2017-10-07] MEDS: METOPROLOL TARTRATE 50 MG TABLET (FP) PO SCH ×2 (09:48→21:44)
[2017-10-07] MEDS: LIDOCAINE 5% TOPICAL PATCH TP SCH (09:48)
[2017-10-07] MEDS: DOXAZOSIN MESYLATE 4 MG TABLET PO SCH (09:48)
[2017-10-07] MEDS: GABAPENTIN 100 MG CAPSULE (FP) PO SCH ×2 (09:49→21:44)
--- NOTE | 2017-10-07 10:48 | PN ---
Progress Note (short form) - Note Progress Note: Resting in NAD. No SOB or CP. Repeat blood cultures negative. Intake & Output 10/04/17 10/05/17 10/06/17 10/07/17 23:59 23:59 23:59 23:59 Intake Total 859 1820 1210 408 Output Total 450 200 Balance 859 1820 760 208 Weight 189 lb 14.4 oz 185 lb 2 oz 185 lb 3 oz 190 lb 3.2 oz Last Vital Signs Temp Pulse Resp BP Pulse Ox 97.0 F L 68 20 146/76 96 10/07/17 09:37 10/07/17 09:37 10/07/17 09:37 10/07/17 09:37 10/06/17 21:00 Active Medications Acetaminophen (Tylenol -) 650 mg PO Q6H PRN PRN Reason: PAIN LEVEL 4 - 6 Last Admin: 10/04/17 21:37 Dose: 650 mg Doxazosin Mesylate (Cardura -) 4 mg PO DAILY [facility] Last Admin: 10/07/17 09:48 Dose: 4 mg Gabapentin (Neurontin -) 100 mg PO BID [facility] Last Admin: 10/07/17 09:49 Dose: 100 mg Daptomycin 500 mg/ Sodium (Chloride) 100 mls @ 200 mls/hr IVPB MoWeFr@1000 [facility] ; Protocol Last Admin: 10/04/17 17:07 Dose: Not Given Sodium Chloride (Normal Saline -) 250 mls @ 3,000 mls/hr IV PRN PRN PRN Reason: Hypotension during Dialysis Stop: 10/03/17 17:40 Insulin Aspart (Novolog Vial Sliding Scale -) 1 vial SQ [facility]; Protocol Last Admin: 10/07/17 06:41 Dose: 6 units Insulin Detemir (Levemir Vial) 10 units SQ DAILY@0700 [facility] Last Admin: 10/07/17 06:40 Dose: 10 units Lidocaine (Lidoderm Patch -) 1 patch TP DAILY [facility] Last Admin: 10/07/17 09:48 Dose: Not Given Metoprolol Tartrate (Lopressor -) 50 mg PO BID [facility] Last Admin: 10/07/17 09:48 Dose: 50 mg Miscellaneous (Lidoderm Patch Removal) 1 each MC DAILY@2200 [facility] Last Admin: 10/06/17 22:00 Dose: Not Given Oxycodone HCl (Roxicodone -) 10 mg PO Q4H PRN PRN Reason: PAIN LEVEL 7 - 10 Last Admin: 10/07/17 04:43 Dose: 10 mg Sevelamer Carbonate (Renvela -) 1,600 mg PO TIDCM [facility] Last Admin: 10/07/17 08:30 Dose: 1,600 mg Trazodone HCl (Desyrel -) 300 mg PO HS [facility] Last Admin: 10/06/17 21:53 Dose: 300 mg Constitutional: Yes: No Distress Neck: Yes: Supple Respiratory: Yes: diminished at the bases Gastrointestinal: Yes: Normal Bowel Sounds, Soft Cardiovascular: Yes: Regular Rate and Rhythm JVD: No Carotid Bruit: No Heart Sounds: Yes: S1, S2 Edema: No Laboratory Results - last 24 hr 10/06/17 10/06/17 10/06/17 12:21 12:55 17:46 WBC 13.8 H RBC 2.95 L Hgb 8.6 L Hct 27.0 L MCV 91.4 MCH 29.2 MCHC 31.9 L RDW 17.7 H Plt Count 538 H MPV 8.5 Absolute Neuts (auto) 11.5 Total Counted 100 Neutrophils % 82.9 H Neutrophils % (Manual) 81.0 Band Neutrophils % 2.0 Lymphocytes % 11.2 D Lymphocytes % (Manual) 9.0 Monocytes % 4.4 Monocytes % (Manual) 4 Eosinophils % 0.5 Basophils % 1.0 D Myelocytes % (Man) 1 Nucleated RBC % 0 Platelet Estimate Increased Platelet Comment Rare giant plts PTT (Actin FS) Sodium Potassium Chloride Carbon Dioxide Anion Gap BUN Creatinine Creat Clearance w eGFR POC Glucometer 254 77 Random Glucose Calcium Magnesium Total Bilirubin AST ALT Alkaline Phosphatase Creatine Kinase Total Protein Albumin 10/06/17 10/06/17 10/07/17 20:30 21:48 06:39 WBC RBC Hgb Hct MCV MCH MCHC RDW Plt Count MPV Absolute Neuts (auto) Total Counted Neutrophils % Neutrophils % (Manual) Band Neutrophils % Lymphocytes % Lymphocytes % (Manual) Monocytes % Monocytes % (Manual) Eosinophils % Basophils % Myelocytes % (Man) Nucleated RBC % Platelet Estimate Platelet Comment PTT (Actin FS) 42.2 H Sodium Potassium Chloride Carbon Dioxide Anion Gap BUN Creatinine Creat Clearance w eGFR POC Glucometer 213 239 Random Glucose Calcium Magnesium Total Bilirubin AST ALT Alkaline Phosphatase Creatine Kinase Total Protein Albumin 10/07/17 10/07/17 10/07/17 07:45 07:45 07:45 WBC 10.3 H RBC 2.96 L Hgb 8.7 L Hct 26.8 L MCV 90.6 MCH 29.2 MCHC 32.3 RDW 17.0 H Plt Count 641 H MPV 7.6 D Absolute Neuts (auto) 8.5 Total Counted Neutrophils % 83.0 H Neutrophils % (Manual) Band Neutrophils % Lymphocytes % 11.0 Lymphocytes % (Manual) Monocytes % 4.9 Monocytes % (Manual) Eosinophils % 0.8 Basophils % 0.3 Myelocytes % (Man) Nucleated RBC % 0 Platelet Estimate Platelet Comment PTT (Actin FS) 63.8 H D Sodium 131 L Potassium 4.3 Chloride 93 L Carbon Dioxide 26 Anion Gap 12 BUN 54 H Creatinine 7.6 H* Creat Clearance w eGFR 7.29 POC Glucometer Random Glucose 189 H Calcium 7.8 L Magnesium 2.1 Total Bilirubin 0.3 AST 11 L D ALT 22 Alkaline Phosphatase 111 Creatine Kinase 53 Total Protein 5.7 L Albumin 1.8 L Problem List - Problems (1) Sepsis Code(s): A41.9 - SEPSIS, UNSPECIFIED ORGANISM (2) ESRD (end stage renal disease) Code(s): N18.6 - END STAGE RENAL DISEASE (3) Diabetes mellitus, insulin dependent (IDDM), controlled Code(s): E11.9 - TYPE 2 DIABETES MELLITUS WITHOUT COMPLICATIONS; Z79.4 - ALF (CURRENT) USE OF INSULIN (4) Amputation, below knee, unilateral, traumatic Code(s): S88.119A - COMPLETE TRAUM AMP AT LEV BETW KN & ANKL, UNSP LOW LEG, INIT (5) Bacteremia due to Gram-positive bacteria Code(s): R78.81 - BACTEREMIA (6) Dyspnea Code(s): R06.00 - DYSPNEA, UNSPECIFIED (7) Acute dyspnea Code(s): R06.00 - DYSPNEA, UNSPECIFIED (8) Chest congestion Code(s): R09.89 - OTH SYMPTOMS AND SIGNS INVOLVING THE CIRC AND RESP SYSTEMS (9) Peripheral vascular disease due to secondary diabetes Code(s): E13.51 - OTH DIABETES W DIABETIC PERIPHERAL ANGIOPATHY W/O GANGRENE (10) HTN (hypertension) Code(s): I10 - ESSENTIAL (PRIMARY) HYPERTENSION Qualifiers: Hypertension type: essential hypertension Qualified Code(s): I10 - Essential (primary) hypertension IMP GRAM+ BACTEREMIA/SEPSIS DYSPNEA LOW SUSPICION OF PNA / BASILAR ATELECTASIS ON CXR ESRD ON HD PVD S/P LEFT BKA IDDM HTN PLAN ABX PER ID O2 INHALED BRONCHODILATORS HD PER RENAL VTE PROPHYLAXIS BD TX PRN D/C PLANNING DR CARROLL
--- NOTE | 2017-10-07 10:49 | PN ---
Progress Note, Physician History of Present Illness: patient stable doing well no new issues afebrile - Current Medication List Current Medications: Active Medications Acetaminophen (Tylenol -) 650 mg PO Q6H PRN PRN Reason: PAIN LEVEL 4 - 6 Last Admin: 10/04/17 21:37 Dose: 650 mg Doxazosin Mesylate (Cardura -) 4 mg PO DAILY [facility] Last Admin: 10/07/17 09:48 Dose: 4 mg Gabapentin (Neurontin -) 100 mg PO BID [facility] Last Admin: 10/07/17 09:49 Dose: 100 mg Daptomycin 500 mg/ Sodium (Chloride) 100 mls @ 200 mls/hr IVPB MoWeFr@1000 [facility] ; Protocol Last Admin: 10/04/17 17:07 Dose: Not Given Sodium Chloride (Normal Saline -) 250 mls @ 3,000 mls/hr IV PRN PRN PRN Reason: Hypotension during Dialysis Stop: 10/03/17 17:40 Insulin Aspart (Novolog Vial Sliding Scale -) 1 vial SQ [facility]; Protocol Last Admin: 10/07/17 06:41 Dose: 6 units Insulin Detemir (Levemir Vial) 10 units SQ DAILY@0700 [facility] Last Admin: 10/07/17 06:40 Dose: 10 units Lidocaine (Lidoderm Patch -) 1 patch TP DAILY [facility] Last Admin: 10/07/17 09:48 Dose: Not Given Metoprolol Tartrate (Lopressor -) 50 mg PO BID [facility] Last Admin: 10/07/17 09:48 Dose: 50 mg Miscellaneous (Lidoderm Patch Removal) 1 each MC DAILY@2200 [facility] Last Admin: 10/06/17 22:00 Dose: Not Given Oxycodone HCl (Roxicodone -) 10 mg PO Q4H PRN PRN Reason: PAIN LEVEL 7 - 10 Last Admin: 10/07/17 04:43 Dose: 10 mg Sevelamer Carbonate (Renvela -) 1,600 mg PO TIDCM [facility] Last Admin: 10/07/17 08:30 Dose: 1,600 mg Trazodone HCl (Desyrel -) 300 mg PO HS [facility] Last Admin: 10/06/17 21:53 Dose: 300 mg - Objective Vital Signs: Vital Signs Temperature 97.0 F L 10/07/17 09:37 Pulse Rate 68 06/11/18 09:37 Respiratory Rate 20 10/07/17 09:37 Blood Pressure 146/76 10/07/17 09:37 O2 Sat by Pulse Oximetry (%) 96 10/06/17 21:00 Constitutional: Yes: No Distress, Calm Respiratory: Yes: Regular, CTA Bilaterally Gastrointestinal: Yes: Normal Bowel Sounds, Soft Musculoskeletal: Yes: WNL Extremities: Yes: Other Neurological: Yes: Alert, Oriented Psychiatric: Yes: Alert Labs: CBC, BMP 10/07/17 07:45 10/07/17 07:45 INR, PTT INR 1.14 (0.82-1.09) 09/25/17 10:38 Assessment/Plan patient just coming back form [facility] also received a dose of dapto gm positive bacteremia esrd fever hyperkalemia hyponatremia pericardial effusion plan continue dapto repeat cx negative patients pain is better continue dialysis
--- NOTE | 2017-10-07 11:45 | PN ---
Progress Note, Physician Chief Complaint: The patient seen in his room. Reports no new problems. No fever. . Waiting for placement of Femoral catheter. - Current Medication List Current Medications: Active Medications Acetaminophen (Tylenol -) 650 mg PO Q6H PRN PRN Reason: PAIN LEVEL 4 - 6 Last Admin: 10/04/17 21:37 Dose: 650 mg Doxazosin Mesylate (Cardura -) 4 mg PO DAILY [facility] Last Admin: 10/07/17 09:48 Dose: 4 mg Gabapentin (Neurontin -) 100 mg PO BID [facility] Last Admin: 10/07/17 09:49 Dose: 100 mg Daptomycin 500 mg/ Sodium (Chloride) 100 mls @ 200 mls/hr IVPB MoWeFr@1000 [facility] ; Protocol Last Admin: 10/04/17 17:07 Dose: Not Given Sodium Chloride (Normal Saline -) 250 mls @ 3,000 mls/hr IV PRN PRN PRN Reason: Hypotension during Dialysis Stop: 10/03/17 17:40 Insulin Aspart (Novolog Vial Sliding Scale -) 1 vial SQ [facility]; Protocol Last Admin: 10/07/17 06:41 Dose: 6 units Insulin Detemir (Levemir Vial) 10 units SQ DAILY@0700 [facility] Last Admin: 10/07/17 06:40 Dose: 10 units Lidocaine (Lidoderm Patch -) 1 patch TP DAILY [facility] Last Admin: 10/07/17 09:48 Dose: Not Given Metoprolol Tartrate (Lopressor -) 50 mg PO BID [facility] Last Admin: 10/07/17 09:48 Dose: 50 mg Miscellaneous (Lidoderm Patch Removal) 1 each MC DAILY@2200 [facility] Last Admin: 10/06/17 22:00 Dose: Not Given Oxycodone HCl (Roxicodone -) 10 mg PO Q4H PRN PRN Reason: PAIN LEVEL 7 - 10 Last Admin: 10/07/17 04:43 Dose: 10 mg Sevelamer Carbonate (Renvela -) 1,600 mg PO TIDCM [facility] Last Admin: 10/07/17 08:30 Dose: 1,600 mg Trazodone HCl (Desyrel -) 300 mg PO HS [facility] Last Admin: 10/06/17 21:53 Dose: 300 mg - Objective Vital Signs: Vital Signs Temperature 97.0 F L 10/07/17 09:37 Pulse Rate 68 10/07/17 09:37 Respiratory Rate 20 10/07/17 09:37 Blood Pressure 146/76 10/07/17 09:37 O2 Sat by Pulse Oximetry (%) 96 10/06/17 21:00 Constitutional: Yes: No Distress, Anxious HENT: Yes: Atraumatic Neck: Yes: Trachea Midline Cardiovascular: Yes: S1, S2 Respiratory: Yes: CTA Bilaterally, Diminished Gastrointestinal: Yes: Normal Bowel Sounds, Soft Musculoskeletal: Yes: Back Pain Labs: CBC, BMP 10/07/17 07:45 10/07/17 07:45 INR, PTT INR 1.14 (0.82-1.09) 09/25/17 10:38 Problem List - Problems (1) Bacteremia due to Gram-positive bacteria Code(s): R78.81 - BACTEREMIA (2) Dyspnea Code(s): R06.00 - DYSPNEA, UNSPECIFIED (3) ESRD (end stage renal disease) Code(s): N18.6 - END STAGE RENAL DISEASE (4) Hyperglycemia Code(s): R73.9 - HYPERGLYCEMIA, UNSPECIFIED (5) Internal jugular vein thrombosis Code(s): I82.C19 - ACUTE EMBOLISM AND THROMBOSIS OF UNSP INTERNAL JUGULAR VEIN Qualifiers: Laterality: right Qualified Code(s): I82.C11 - Acute embolism and thrombosis of right internal jugular vein (6) Sepsis Code(s): A41.9 - SEPSIS, UNSPECIFIED ORGANISM Qualifiers: Sepsis type: methicillin susceptible Staphylococcus aureus Qualified Code(s ): A41.01 - Sepsis due to Methicillin susceptible Staphylococcus aureus (7) Diabetes mellitus, insulin dependent (IDDM), controlled Code(s): E11.9 - TYPE 2 DIABETES MELLITUS WITHOUT COMPLICATIONS; Z79.4 - [employer] (CURRENT) USE OF INSULIN (8) Amputation, below knee, unilateral, traumatic Code(s): S88.119A - COMPLETE TRAUM AMP AT LEV BETW KN & ANKL, UNSP LOW LEG, INIT (9) Diabetes mellitus Code(s): E11.9 - TYPE 2 DIABETES MELLITUS WITHOUT COMPLICATIONS Qualifiers: Diabetes mellitus type: type 2 Diabetes mellitus mounter sousaphones insulin use: without fpc use Diabetes mellitus complication status: without complication Qualified Code(s): E11.9 - Type 2 diabetes mellitus without complications (10) Diabetic neuropathy Code(s): E11.40 - TYPE 2 DIABETES MELLITUS WITH DIABETIC NEUROPATHY, UNSP Qualifiers: Diabetes mellitus type: type 2 Diabetes mellitus complication detail: diabetic polyneuropathy Qualified Code(s): E11.42 - Type 2 diabetes mellitus with diabetic polyneuropathy (11) Dialysis patient Code(s): Z99.2 - DEPENDENCE ON RENAL DIALYSIS (12) HTN (hypertension) Code(s): I10 - ESSENTIAL (PRIMARY) HYPERTENSION Qualifiers: Hypertension type: essential hypertension Qualified Code(s): I10 - Essential (primary) hypertension (13) Severe anemia Code(s): D64.9 - ANEMIA, UNSPECIFIED Assessment/Plan 62 year old AA gentleman with PMhx of ESRD on HD (TTS) secondary to suspected diabetic nephropathy, DM, Hypertension, PVD who presented outpatient blood cultures that were positive for gram positive Cocci. ESRD on HD Hyperkalemia Hyponatremia Gram + bacteremia/Sepsis Anemia Pericardial effusion IJ thrombosis. The patient has IJ thrombosis. NO HD access. IV antibiotics well tolerated. Will continue the same. Waiting transfer to a tertiary center. Awaitng placement of Acute HD catheter. Dialysis not possible today, I am told, due to lack of HD nursing staff. Dialysis scheduled for tomorrow. Aniyah Chaudhry MD
[2017-10-07 12:09] LABS: CREATININE 7.6 mg/dL (0.7-1.3)
--- NOTE | 2017-10-07 14:04 | PROC ---
Central Line Insertion - Procedure Note TIME OUT performed prior to this procedure with verbal confirmation of correct patient identity, correct side, agreement of the procedure, correct patient position, availability of necessary equipment. The consent form is complete and accurate. Risk of possible infection, bleeding have been discussed with the patient. Safety precautions based on patient history or medication use has been addressed. Indication: Other (HD access) Central Line: Dialysis Cath, Tri Lumen Position: Supine Area prepped with Chlorhexidine solution then draped using sterile barrier protection. Anesthesia: Lidocaine 1% Technique used: Seldinger Ultrasound Guided Assistance: Yes Site: Left Femoral Dark venous non-pulsatile flow noted from hub of needle. The catheter was introduced. Guide wire removed intact. Each port aspirated then flushed with sterile normal saline then heparin flush and capped. Line secured to skin with silk suture. Biopatch placed around base of line. Sterile occlusive dressing applied. No complications. Patient tolerated the procedure well.
[2017-10-07] MEDS: HEPARIN - 25,000 UNIT in SODIUM CHLORIDE 495 ML IV SCH ×2 (14:30→22:35)
[2017-10-07] MEDS ORDERED: HEPARIN NA (PORCINE) 5,000 UNITS/ML 1ML VIAL IVPUSH PRN (15:21)
--- NOTE | 2017-10-07 16:19 | PN ---
Progress Note (short form) - Note Progress Note: s/p left femoral shiley with US guidance. Spoke with Emelia Wallace who is taking care of the patient and will resume IV heparin as per the medical team management. The IV heparin drip was resumed at the rate it was stopped at this am, the PTT value was 63 at this time. Ordered a repeat PTT value for 9pm. Care discussed with the medical team. Will plan for PC and left US fistula on Saturday. Vein mapping ordered.
[2017-10-07] MEDS: DAPTOMYCIN 500 MG in SODIUM CHLORIDE 100 ML IVPB SCH (17:58)
--- NOTE | 2017-10-07 18:12 | PN ---
Physical Exam: SUBJECTIVE: Patient seen and examined at bedside. Feels better. Discussed plan of care. OBJECTIVE: Vital Signs Period Temp Pulse Resp BP Sys/Gutierrez Pulse Ox Last 24 Hr 97.0 F-98.7 F 68-76 20-20 140-154/69-77 92-96 GENERAL: The patient is awake, alert, and fully oriented, in no acute distress. NECK: Trachea midline, full range of motion, supple. LUNGS: CTA HEART: Regular rate and rhythm, S1, S2 ABDOMEN: Soft, nontender, nondistended EXTREMITIES: Left BKA, well-healed NEUROLOGICAL: Cranial nerves II through XII grossly intact. Normal speech, gait not observed. Laboratory Results - last 24 hr 10/06/17 10/06/17 10/07/17 20:30 21:48 06:39 WBC RBC Hgb Hct MCV MCH MCHC RDW Plt Count MPV Absolute Neuts (auto) Neutrophils % Lymphocytes % Monocytes % Eosinophils % Basophils % Nucleated RBC % PTT (Actin FS) 42.2 H Sodium Potassium Chloride Carbon Dioxide Anion Gap BUN Creatinine Creat Clearance w eGFR POC Glucometer 213 239 Random Glucose Calcium Magnesium Total Bilirubin AST ALT Alkaline Phosphatase Creatine Kinase Total Protein Albumin 10/07/17 10/07/17 10/07/17 07:45 07:45 07:45 WBC 10.3 H RBC 2.96 L Hgb 8.7 L Hct 26.8 L MCV 90.6 MCH 29.2 MCHC 32.3 RDW 17.0 H Plt Count 641 H MPV 7.6 D Absolute Neuts (auto) 8.5 Neutrophils % 83.0 H Lymphocytes % 11.0 Monocytes % 4.9 Eosinophils % 0.8 Basophils % 0.3 Nucleated RBC % 0 PTT (Actin FS) 63.8 H D Sodium 131 L Potassium 4.3 Chloride 93 L Carbon Dioxide 26 Anion Gap 12 BUN 54 H Creatinine 7.6 H* Creat Clearance w eGFR 7.29 POC Glucometer Random Glucose 189 H Calcium 7.8 L Magnesium 2.1 Total Bilirubin 0.3 AST 11 L D ALT 22 Alkaline Phosphatase 111 Creatine Kinase 53 Total Protein 5.7 L Albumin 1.8 L 10/07/17 10/07/17 11:44 17:05 WBC RBC Hgb Hct MCV MCH MCHC RDW Plt Count MPV Absolute Neuts (auto) Neutrophils % Lymphocytes % Monocytes % Eosinophils % Basophils % Nucleated RBC % PTT (Actin FS) Sodium Potassium Chloride Carbon Dioxide Anion Gap BUN Creatinine Creat Clearance w eGFR POC Glucometer 167 119 Random Glucose Calcium Magnesium Total Bilirubin AST ALT Alkaline Phosphatase Creatine Kinase Total Protein Albumin Active Medications Generic Name Dose Route Start Last Admin Trade Name Kashifq PRN Reason Stop Dose Admin Acetaminophen 650 mg 10/01/17 05:28 10/04/17 21:37 Tylenol - PO 650 mg Q6H PRN Administration PAIN LEVEL 4 - 6 Doxazosin Mesylate 4 mg 10/01/17 10:00 10/07/17 09:48 Cardura - PO 4 mg DAILY [facility] Administration Epoetin Joe 10,000 unit 10/08/17 11:49 Procrit - SQ 10/08/17 11:50 ONCE ONE Gabapentin 100 mg 10/01/17 10:00 10/07/17 09:49 Neurontin - PO 100 mg BID IGGY Administration Heparin Sodium (Porcine) 1,000 unit 10/07/17 15:21 Heparin - IVPUSH PRN PRN Heparin Heparin Sodium (Porcine) 5,000 unit 10/07/17 14:22 Heparin - IVPUSH PRN PRN Heparin Daptomycin 500 mg/ Sodium 100 mls @ 200 mls/hr 10/04/17 10:00 10/07/17 17:58 Chloride IVPB Not Given [id number] [facility] Protocol Sodium Chloride 250 mls @ 3,000 mls/hr 10/02/17 17:40 Normal Saline - IV 10/03/17 17:40 PRN PRN Hypotension during Dialysis Heparin Sodium (Porcine) 25, 500 mls @ 34 mls/hr 10/07/17 14:30 10/07/17 14: 30 000 unit/ Sodium Chloride IV 1,700 unit/hr TITR IGGY 34 mls/hr Administration Protocol 1,700 UNIT/HR Insulin Aspart 1 vial 10/01/17 07:00 10/07/17 17:06 Novolog Vial Sliding Scale - SQ Not Given ACHS [facility] Protocol Insulin Detemir 10 units 10/01/17 07:00 10/07/17 06:40 Levemir Vial SQ 10 units DAILY@0700 [facility] Administration Lidocaine 1 patch 10/01/17 11:45 10/07/17 09:48 Lidoderm Patch - TP Not Given DAILY [facility] Metoprolol Tartrate 50 mg 10/01/17 10:00 10/07/17 09:48 Lopressor - PO 50 mg BID IGGY Administration Miscellaneous 1 each 10/01/17 22:00 10/06/17 22:00 Lidoderm Patch Removal MC Not Given DAILY@2200 [facility] Oxycodone HCl 10 mg 10/06/17 20:09 10/07/17 04:43 Roxicodone - PO 10 mg Q4H PRN Administration PAIN LEVEL 7 - 10 Sevelamer Carbonate 1,600 mg 10/01/17 08:00 10/07/17 17:06 Renvela - PO 1,600 mg TIDCM IGGY Administration Trazodone HCl 300 mg 10/01/17 22:00 10/06/17 21:53 Desyrel - PO 300 mg HS IGGY Administration ASSESSMENT/PLAN 61 year-old male with a PMH significant for HTN, IDDM, ESRD on HD (T,Th,Sat), and left BKA. Admitted for MRSA bacteremia. Thrombi --occlusive thrombus inferior right IJ; presumably from earlier permacath; this is suspected nidus of infection --occlusive thrombus lower right cephalic vein (superficial) --on heparin drip after discussion among Dr. Richards, PUBLIC AID ELIGIBILITY ASSISTANT Leonarda, Dr. Chaudhry, Dr. Daly due to size of clot --will get heme consult to assess long-term anti-coagulation needs --we will continue to medically manage MRSA bacteremia --continue Dapto on HD days; discussed with Dr. Brown today; will need 6 weeks of dapto Klebsiella UTI --Zosyn completed course (09/26-10/06) Chronic anemia --transfused 2U PRBC on 10/02 --h/h stable ESRD on HD --trialysis catheter placed today --discussed with Dr. Daly, will get permacath and AV fistula later in week --continue sevelamar IDDM --Levemir 10U --Novolog sliding scale coverage Hypertension --BP stable --continue FEN Fluids: PO intake adequate Electrolytes: replete as indicated Nutrition: renal diet DVT prophylaxis: on heparin drip; PTT goal 60-80. Visit type - Emergency Visit Emergency Visit: Yes ED Registration Date: 09/24/17 Care time: The patient presented to the Emergency Department on the above date and was hospitalized for further evaluation of their emergent condition. - New Patient This patient is new to me today: No - Critical Care Critical Care patient: No
[2017-10-07] MEDS ORDERED: traZODone HCL 50 MG TABLET (FP) ONE (21:03)
[2017-10-07] MEDS ORDERED: INSULIN (NOVOLOG) ASPART 100 UNITS/ML 10ML VIAL ONE (21:36)
[2017-10-07] MEDS: traZODone HCL 100 MG TABLET (FP) PO SCH (21:45)
[2017-10-07] MEDS: LIDOCAINE PATCH REMOVAL MC SCH (21:47)
[2017-10-07] MEDS: HEPARIN NA (PORCINE) 5,000 UNITS/ML 1ML VIAL IVPUSH PRN (22:33)
--- NOTE | 2017-10-07 23:23 | CONSULT ---
Consult - text type - Consultation Consultation Note: Patient seen and examined This is a 62 year old AA gentleman with PMhx of ESRD on HD secondary to suspected diabetic nephropathy, Hypertension, PVD who presented with outpatient blood cultures that were positive for gram positive Cocci. Pt reports that he has been feeling ill for the last 4-5 days. Missed his last dialysis on Saturday. Has mild sob. No fever. No N/V/D. + PEREZ, neck stiffness. No discharge from catheter site. PMhx: as above Allergies: NKDA Family Hx: NC Social hx: No T/A/D AFVSS NAD awake and alert Rt. neck swelling RRR, No M/R CTA soft NT/ND No LE edema, Left BKA RUE swelling Abnormal Lab Results 10/07/17 10/08/17 10/08/17 21:30 03:45 07:30 RBC 2.91 L Hgb 8.6 L Hct 26.4 L RDW 17.2 H Plt Count 676 H Myelocytes % (Man) 3 H D PTT (Actin FS) 39.2 H D 60.9 H D Sodium Chloride BUN Creatinine Random Glucose Calcium AST Total Protein Albumin 10/08/17 10/08/17 07:30 08:45 RBC Hgb Hct RDW Plt Count Myelocytes % (Man) PTT (Actin FS) 53.4 H Sodium 132 L Chloride 93 L BUN 62 H Creatinine 8.2 H* Random Glucose 130 H D Calcium 7.8 L AST 14 L D Total Protein 6.0 L Albumin 2.1 L A/P 62 y/o male with DM,HTN,ESRD on HD, anemia, PVD, G+ bacteremia now with Rt. IJ septic thrombophlebitis. On heparin drip currently Lt. shiley catheter For AV fistula placement on 10/09 No catheter in association with Rt. IJ CT soft tissues of neck 09/27 showed rt. IJ thrombus extending into sigmoid sinus- -dural venous sinus thrombosis. MRI brain to r/o infarcts and MRI neck to r/o adenopathy was suggested. Will request neurology consult will discuss with renal team and PMD about coordinating MRI Would consider bridging to coumadin once procedures completed for a period of 3 months and reevaluate risks/benefits will follow and make necessary recommendations
[2017-10-08] MEDS ORDERED: INSULIN (NOVOLOG) ASPART 100 UNITS/ML 10ML VIAL ONE (06:31)
[2017-10-08] MEDS: oxyCODONE HCL 5 MG TABLET PO PRN ×2 (07:09→18:33)
[2017-10-08] MEDS: INSULIN SLIDING SCALE (NOVOLOG) 1 VIAL SQ SCH ×4 (07:13→21:39)
[2017-10-08] MEDS: INSULIN (LEVEMIR) 100 UNITS/ML UNITS SQ SCH (07:33)
[2017-10-08] MEDS ORDERED: PT OWN MED DRAWER 7, Y5N ONE ×3 (07:34→15:05)
[2017-10-08] MEDS ORDERED: INSULIN (LEVEMIR) 100 UNITS/ML UNITS SQ ONE (07:36)
[2017-10-08 08:07] LABS: HEMATOCRIT 26.4 % (35.4-49); HEMOGLOBIN 8.6 GM/dL (11.7-16.9); MCH 29.4 pg (25.7-33.7); MCHC 32.5 g/dl (32.0-35.9); MEAN CELL VOLUME 90.6 fl (80-96); MEAN PLT VOLUME 7.8 fl (7.5-11.1); PLATELET COUNT 676 K/MM3 (134-434); RBC 2.91 M/mm3 (4.00-5.60); RDW 17.2 % (11.9-15.9); WHITE BLOOD COUNT 9.8 K/mm3 (4.0-10.0)
[2017-10-08 08:25] LABS: CHLORIDE 93 mmol/L (98-107); POTASSIUM 4.4 mmol/L (3.5-5.1); SODIUM 132 mmol/L (136-145)
[2017-10-08] MEDS: SEVELAMER CARBONATE 800 MG TAB (FP) PO SCH ×3 (08:28→17:05)
--- NOTE | 2017-10-08 08:30 | PN ---
Progress Note, Physician History of Present Illness: Reports urticaria, last blood cultures sent shows clearance of MRSA bacteremia. Left femoral shiley placed for HD access. - Current Medication List Current Medications: Active Medications Acetaminophen (Tylenol -) 650 mg PO Q6H PRN PRN Reason: PAIN LEVEL 4 - 6 Last Admin: 10/04/17 21:37 Dose: 650 mg Doxazosin Mesylate (Cardura -) 4 mg PO DAILY [facility] Last Admin: 10/07/17 09:48 Dose: 4 mg Epoetin Joe (Procrit -) 10,000 unit SQ ONCE ONE Stop: 10/08/17 11:50 Gabapentin (Neurontin -) 100 mg PO BID [facility] Last Admin: 10/07/17 21:44 Dose: 100 mg Heparin Sodium (Porcine) (Heparin -) 1,000 unit IVPUSH PRN PRN PRN Reason: Heparin Heparin Sodium (Porcine) (Heparin -) 5,000 unit IVPUSH PRN PRN PRN Reason: Heparin Last Admin: 10/07/17 22:33 Dose: 5,000 unit Daptomycin 500 mg/ Sodium (Chloride) 100 mls @ 200 mls/hr IVPB [id number]@[id number] [facility] ; Protocol Last Admin: 10/07/17 17:58 Dose: Not Given Sodium Chloride (Normal Saline -) 250 mls @ 3,000 mls/hr IV PRN PRN PRN Reason: Hypotension during Dialysis Stop: 10/03/17 17:40 Heparin Sodium (Porcine) 25, (000 unit/ Sodium Chloride) 500 mls @ 34 mls/hr IV TITR [facility]; Protocol Last Admin: 10/07/17 22:35 Dose: 1,850 unit/hr, 37 mls/hr Insulin Aspart (Novolog Vial Sliding Scale -) 1 vial SQ ACHS [facility]; Protocol Last Admin: 10/08/17 07:13 Dose: Not Given Insulin Detemir (Levemir Vial) 10 units SQ DAILY@0700 [facility] Last Admin: 10/08/17 07:33 Dose: 10 units Lidocaine (Lidoderm Patch -) 1 patch TP DAILY [facility] Last Admin: 10/07/17 09:48 Dose: Not Given Metoprolol Tartrate (Lopressor -) 50 mg PO BID [facility] Last Admin: 10/07/17 21:44 Dose: 50 mg Miscellaneous (Lidoderm Patch Removal) 1 each MC DAILY@2200 [facility] Last Admin: 10/07/17 21:47 Dose: Not Given Oxycodone HCl (Roxicodone -) 10 mg PO Q4H PRN PRN Reason: PAIN LEVEL 7 - 10 Last Admin: 10/08/17 07:09 Dose: 10 mg Sevelamer Carbonate (Renvela -) 1,600 mg PO TIDCM [facility] Last Admin: 10/08/17 08:28 Dose: 1,600 mg Trazodone HCl (Desyrel -) 300 mg PO HS [facility] Last Admin: 10/07/17 21:45 Dose: 300 mg - Objective Vital Signs: Vital Signs Temperature 97.8 F 10/08/17 06:00 Pulse Rate 70 10/08/17 06:00 Respiratory Rate 20 10/08/17 06:00 Blood Pressure 137/73 10/08/17 06:00 O2 Sat by Pulse Oximetry (%) 92 L 10/07/17 21:00 Constitutional: Yes: No Distress, Calm Neck: Yes: Supple Cardiovascular: Yes: Regular Rate and Rhythm Respiratory: Yes: Regular, CTA Bilaterally Gastrointestinal: Yes: Normal Bowel Sounds, Soft Extremities: Yes: Amputation (Left BKA) Edema: No Labs: CBC, BMP 10/08/17 07:30 10/08/17 07:30 INR, PTT INR 1.14 (0.82-1.09) 09/25/17 10:38 Problem List - Problems (1) Bacteremia due to Gram-positive bacteria Code(s): R78.81 - BACTEREMIA (2) ESRD (end stage renal disease) Code(s): N18.6 - END STAGE RENAL DISEASE (3) Sepsis Code(s): A41.9 - SEPSIS, UNSPECIFIED ORGANISM Qualifiers: Sepsis type: methicillin susceptible Staphylococcus aureus Qualified Code(s ): A41.01 - Sepsis due to Methicillin susceptible Staphylococcus aureus (4) Diabetes mellitus, insulin dependent (IDDM), controlled Code(s): E11.9 - TYPE 2 DIABETES MELLITUS WITHOUT COMPLICATIONS; Z79.4 - CONTRACT ADMINISTRATOR (CURRENT) USE OF INSULIN (5) Hyponatremia Code(s): E87.1 - HYPO-OSMOLALITY AND HYPONATREMIA (6) Anemia Code(s): D64.9 - ANEMIA, UNSPECIFIED Qualifiers: Anemia type: due to chronic kidney disease (7) Dialysis patient Code(s): Z99.2 - DEPENDENCE ON RENAL DIALYSIS (8) S/P amputation Code(s): Z89.9 - ACQUIRED ABSENCE OF LIMB, UNSPECIFIED (9) Type 2 diabetes mellitus with foot ulcer Code(s): E11.621 - TYPE 2 DIABETES MELLITUS WITH FOOT ULCER; L97.509 - NON- PRESSURE CHRONIC ULCER OTH PRT UNSP FOOT W UNSP SEVERITY (10) Internal jugular vein thrombosis Code(s): I82.C19 - ACUTE EMBOLISM AND THROMBOSIS OF UNSP INTERNAL JUGULAR VEIN Qualifiers: Laterality: right Qualified Code(s): I82.C11 - Acute embolism and thrombosis of right internal jugular vein Assessment/Plan 09/30/2017 CHAKA: Normal biventricular size and fxn, mild AR, [place], MR, no SIS thrombus or vegetations 1. MRSA bacteremia suspect line sepsis from indwelling dialysis catheter - catheter removed - intermittently febrile due to sepsis 2. ESRD on HD, suspected diabetic nephropathy with hyponatremia 3. 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 Type 2 DM 5. HTN/HCVD 6. PAD 7. Anemia of chronic kidney disease 8. Bacteruria 9. Right IJ thrombus probably catheter related, possible septic 10. PAD s/p left BKA PLAN: 1. Antibiotic course per ID, possible drug reaction, repeat surveillance cx demonstrated clearance post catheter removal . CHAKA shows no evidence of vegetations 2. Will need long-term access for HD 3. Consideration for Right IJ thrombectomy by IR, currently on heparin gtt, transition to coumadin per INR if thrombectomy not planned 4. Continue Lopressor 50 bid, Cardura 4 qd
--- NOTE | 2017-10-08 08:42 | PN ---
Physical Exam: SUBJECTIVE: Patient seen and examined while in HD. Feeling better, tolerating HD. RUE feels "tense". Denies headache today. OBJECTIVE: Vital Signs Period Temp Pulse Resp BP Sys/Gutierrez Pulse Ox Last 24 Hr 97.0 F-98.4 F 68-78 18-20 137-154/73-81 92-92 GENERAL: The patient is awake, alert, and fully oriented, in no acute distress. LUNGS: CTA HEART: Regular rate and rhythm, S1, S2 ABDOMEN: Soft, nontender, nondistended EXTREMITIES: RUE and RU chest is more swollen than yesterday, skin is tense NEUROLOGICAL: Cranial nerves II through XII grossly intact. Normal speech, gait not observed. Laboratory Results - last 24 hr 10/06/17 10/07/17 10/07/17 21:48 07:45 07:45 WBC RBC Hgb Hct MCV MCH MCHC RDW Plt Count MPV Absolute Neuts (auto) Neutrophils % Lymphocytes % Monocytes % Eosinophils % Basophils % Nucleated RBC % PTT (Actin FS) 63.8 H D Sodium 131 L Potassium 4.3 Chloride 93 L Carbon Dioxide 26 Anion Gap 12 BUN 54 H Creatinine 7.6 H* Creat Clearance w eGFR 7.29 POC Glucometer 213 Random Glucose 189 H Calcium 7.8 L Magnesium 2.1 Total Bilirubin 0.3 AST 11 L D ALT 22 Alkaline Phosphatase 111 Creatine Kinase 53 Total Protein 5.7 L Albumin 1.8 L 10/07/17 10/07/17 10/07/17 07:45 11:44 17:05 WBC 10.3 H RBC 2.96 L Hgb 8.7 L Hct 26.8 L MCV 90.6 MCH 29.2 MCHC 32.3 RDW 17.0 H Plt Count 641 H MPV 7.6 D Absolute Neuts (auto) 8.5 Neutrophils % 83.0 H Lymphocytes % 11.0 Monocytes % 4.9 Eosinophils % 0.8 Basophils % 0.3 Nucleated RBC % 0 PTT (Actin FS) Sodium Potassium Chloride Carbon Dioxide Anion Gap BUN Creatinine Creat Clearance w eGFR POC Glucometer 167 119 Random Glucose Calcium Magnesium Total Bilirubin AST ALT Alkaline Phosphatase Creatine Kinase Total Protein Albumin 10/07/17 10/07/17 10/08/17 20:56 21:30 03:45 WBC RBC Hgb Hct MCV MCH MCHC RDW Plt Count MPV Absolute Neuts (auto) Neutrophils % Lymphocytes % Monocytes % Eosinophils % Basophils % Nucleated RBC % PTT (Actin FS) 39.2 H D 60.9 H D Sodium Potassium Chloride Carbon Dioxide Anion Gap BUN Creatinine Creat Clearance w eGFR POC Glucometer 225 Random Glucose Calcium Magnesium Total Bilirubin AST ALT Alkaline Phosphatase Creatine Kinase Total Protein Albumin 10/08/17 10/08/17 10/08/17 06:03 07:30 07:30 WBC 9.8 RBC 2.91 L Hgb 8.6 L Hct 26.4 L MCV 90.6 MCH 29.4 MCHC 32.5 RDW 17.2 H Plt Count 676 H MPV 7.8 Absolute Neuts (auto) Neutrophils % Lymphocytes % Monocytes % Eosinophils % Basophils % Nucleated RBC % PTT (Actin FS) Sodium 132 L Potassium 4.4 Chloride 93 L Carbon Dioxide Anion Gap BUN Creatinine Creat Clearance w eGFR POC Glucometer 133 Random Glucose Calcium Magnesium Total Bilirubin AST ALT Alkaline Phosphatase Creatine Kinase Total Protein Albumin Active Medications Generic Name Dose Route Start Last Admin Trade Name Freq PRN Reason Stop Dose Admin Acetaminophen 650 mg 10/01/17 05:28 10/04/17 21:37 Tylenol - PO 650 mg Q6H PRN Administration PAIN LEVEL 4 - 6 Doxazosin Mesylate 4 mg 10/01/17 10:00 10/07/17 09:48 Cardura - PO 4 mg DAILY [facility] Administration Epoetin Joe 10,000 unit 10/08/17 11:49 Procrit - SQ 10/08/17 11:50 ONCE ONE Gabapentin 100 mg 10/01/17 10:00 10/07/17 21:44 Neurontin - PO 100 mg BID IGGY Administration Heparin Sodium (Porcine) 1,000 unit 10/07/17 15:21 Heparin - IVPUSH PRN PRN Heparin Heparin Sodium (Porcine) 5,000 unit 10/07/17 14:22 10/07/17 22:33 Heparin - IVPUSH 5,000 unit PRN PRN Administration Heparin Daptomycin 500 mg/ Sodium 100 mls @ 200 mls/hr 10/04/17 10:00 10/07/17 17:58 Chloride IVPB Not Given [id number] [facility] Protocol Sodium Chloride 250 mls @ 3,000 mls/hr 10/02/17 17:40 Normal Saline - IV 10/03/17 17:40 PRN PRN Hypotension during Dialysis Heparin Sodium (Porcine) 25, 500 mls @ 34 mls/hr 10/07/17 14:30 10/07/17 22: 35 000 unit/ Sodium Chloride IV 1,850 unit/hr TITR IGGY 37 mls/hr Administration Protocol 1,700 UNIT/HR Insulin Aspart 1 vial 10/01/17 07:00 10/08/17 07:13 Novolog Vial Sliding Scale - SQ Not Given ACHS [facility] Protocol Insulin Detemir 10 units 10/01/17 07:00 10/08/17 07:33 Levemir Vial SQ 10 units DAILY@0700 IGGY Administration Lidocaine 1 patch 10/01/17 11:45 10/07/17 09:48 Lidoderm Patch - TP Not Given DAILY IGGY Metoprolol Tartrate 50 mg 10/01/17 10:00 10/07/17 21:44 Lopressor - PO 50 mg BID IGGY Administration Miscellaneous 1 each 10/01/17 22:00 10/07/17 21:47 Lidoderm Patch Removal MC Not Given DAILY@2200 IGGY Oxycodone HCl 10 mg 10/06/17 20:09 10/08/17 07:09 Roxicodone - PO 10 mg Q4H PRN Administration PAIN LEVEL 7 - 10 Sevelamer Carbonate 1,600 mg 10/01/17 08:00 10/08/17 08:28 Renvela - PO 1,600 mg TIDCM IGGY Administration Trazodone HCl 300 mg 10/01/17 22:00 10/07/17 21:45 Desyrel - PO 300 mg HS IGGY Administration ASSESSMENT/PLAN 61 year-old male with a PMH significant for HTN, IDDM, ESRD on HD (T,Th,Sat), and left BKA. Admitted for MRSA bacteremia. Hospital course complicated by large left IJ thrombus. Today with worsening RUE edema. Left IJ thrombus --occlusive thrombus inferior right IJ; presumably from earlier permacath; this is suspected nidus of infection --concern for increasing RUE edema --discussed with Dr. Mitchell, will get CT head and neck with and without IV contrast tomorro morning, contrast can go through trialysis catheter --discussed with Dr. Chaudhry, patient will get HD immediately after the CT --discussed with Dr. Daly, after CT and HD, tomorrow afternoon, he will place permacath, remove the trialysis cath, and get anesthesia to place peripheral access --continue heparin drip, turn off at surgery's direction --will need anticoagulation going forward per Dr. Caceres, period of time yet to be determined Cephalic vein thrombus --superficial MRSA bacteremia --continue Dapto on HD days; discussed with Dr. Brown today; will need 6 weeks of dapto Klebsiella UTI --Zosyn completed course (09/26-10/06) Chronic anemia --transfused 2U PRBC on 10/02 --h/h stable ESRD on HD --see above --continue sevelamar IDDM --Levemir 10U --Novolog sliding scale coverage Hypertension --BP stable --continue FEN Fluids: PO intake adequate Electrolytes: replete as indicated Nutrition: renal diet DVT prophylaxis: on heparin drip; PTT goal 60-80 Physical therapy Dispo: continues to require inpatient care. Full code. Visit type - Emergency Visit Emergency Visit: Yes ED Registration Date: 09/24/17 Care time: The patient presented to the Emergency Department on the above date and was hospitalized for further evaluation of their emergent condition. - New Patient This patient is new to me today: No - Critical Care Critical Care patient: No - Discharge Referral Referred to [facility] Med [facility] No
[2017-10-08 09:26] LABS: ALBUMIN 2.1 g/dl (3.4-5.0); ALK PHOS 105 U/L (45-117); ANION GAP 15 (8-16); BILIRUBIN,TOTAL 0.6 mg/dL (0.2-1.0); BLOOD UREA NITROGEN 62 mg/dL (7-18); CALCIUM 7.8 mg/dL (8.5-10.1); CO2 24 mmol/L (21-32); GLUCOSE,RANDOM 130 mg/dL (74-106); SGOT/AST 14 U/L (15-37); SGPT/ALT 19 U/L (12-78)
[2017-10-08 09:33] LABS: CREATININE 8.2 mg/dL (0.7-1.3)
[2017-10-08] MEDS: LIDOCAINE 5% TOPICAL PATCH TP SCH (09:42)
--- NOTE | 2017-10-08 11:19 | PN ---
Progress Note (short form) - Note Progress Note: Resting in NAD. No SOB or CP. Intake & Output 10/05/17 10/06/17 10/07/17 10/08/17 23:59 23:59 23:59 23:59 Intake Total 1820 1210 749 259 Output Total 450 800 Balance 1820 760 -51 259 Weight 185 lb 2 oz 185 lb 3 oz 190 lb 3.2 oz 191 lb 12.8 oz Last Vital Signs Temp Pulse Resp BP Pulse Ox 97.2 F L 68 20 158/71 92 L 10/08/17 09:47 10/08/17 09:47 10/08/17 09:47 10/08/17 09:47 10/07/17 21:00 Active Medications Acetaminophen (Tylenol -) 650 mg PO Q6H PRN PRN Reason: PAIN LEVEL 4 - 6 Last Admin: 10/04/17 21:37 Dose: 650 mg Doxazosin Mesylate (Cardura -) 4 mg PO DAILY [facility] Last Admin: 10/07/17 09:48 Dose: 4 mg Epoetin Joe (Procrit -) 10,000 unit SQ ONCE ONE Stop: 10/08/17 11:50 Gabapentin (Neurontin -) 100 mg PO BID [facility] Last Admin: 10/07/17 21:44 Dose: 100 mg Heparin Sodium (Porcine) (Heparin -) 1,000 unit IVPUSH PRN PRN PRN Reason: Heparin Heparin Sodium (Porcine) (Heparin -) 5,000 unit IVPUSH PRN PRN PRN Reason: Heparin Last Admin: 10/07/17 22:33 Dose: 5,000 unit Daptomycin 500 mg/ Sodium (Chloride) 100 mls @ 200 mls/hr IVPB MoWeFr@1000 [facility] ; Protocol Last Admin: 10/07/17 17:58 Dose: Not Given Sodium Chloride (Normal Saline -) 250 mls @ 3,000 mls/hr IV PRN PRN PRN Reason: Hypotension during Dialysis Stop: 10/03/17 17:40 Heparin Sodium (Porcine) 25, (000 unit/ Sodium Chloride) 500 mls @ 34 mls/hr IV TITR [facility]; Protocol Last Admin: 10/07/17 22:35 Dose: 1,850 unit/hr, 37 mls/hr Insulin Aspart (Novolog Vial Sliding Scale -) 1 vial SQ ACHS [facility]; Protocol Last Admin: 10/08/17 07:13 Dose: Not Given Insulin Detemir (Levemir Vial) 10 units SQ DAILY@0700 [facility] Last Admin: 10/08/17 07:33 Dose: 10 units Lidocaine (Lidoderm Patch -) 1 patch TP DAILY [facility] Last Admin: 10/08/17 09:42 Dose: Not Given Metoprolol Tartrate (Lopressor -) 50 mg PO BID [facility] Last Admin: 10/07/17 21:44 Dose: 50 mg Miscellaneous (Lidoderm Patch Removal) 1 each MC DAILY@2200 [facility] Last Admin: 10/07/17 21:47 Dose: Not Given Oxycodone HCl (Roxicodone -) 10 mg PO Q4H PRN PRN Reason: PAIN LEVEL 7 - 10 Last Admin: 10/08/17 07:09 Dose: 10 mg Sevelamer Carbonate (Renvela -) 1,600 mg PO TIDCM [facility] Last Admin: 10/08/17 08:28 Dose: 1,600 mg Trazodone HCl (Desyrel -) 300 mg PO HS [facility] Last Admin: 10/07/17 21:45 Dose: 300 mg Constitutional: Yes: No Distress Neck: Yes: Supple Respiratory: Yes: diminished at the bases Gastrointestinal: Yes: Normal Bowel Sounds, Soft Cardiovascular: Yes: Regular Rate and Rhythm JVD: No Carotid Bruit: No Heart Sounds: Yes: S1, S2 Edema: No Laboratory Results - last 24 hr 10/07/17 10/07/17 10/07/17 07:45 11:44 17:05 WBC RBC Hgb Hct MCV MCH MCHC RDW Plt Count MPV PTT (Actin FS) Sodium Potassium Chloride Carbon Dioxide Anion Gap BUN Creatinine 7.6 H* Creat Clearance w eGFR POC Glucometer 167 119 Random Glucose Calcium Total Bilirubin AST ALT Alkaline Phosphatase Total Protein Albumin 10/07/17 10/07/17 10/08/17 20:56 21:30 03:45 WBC RBC Hgb Hct MCV MCH MCHC RDW Plt Count MPV PTT (Actin FS) 39.2 H D 60.9 H D Sodium Potassium Chloride Carbon Dioxide Anion Gap BUN Creatinine Creat Clearance w eGFR POC Glucometer 225 Random Glucose Calcium Total Bilirubin AST ALT Alkaline Phosphatase Total Protein Albumin 10/08/17 10/08/17 10/08/17 06:03 07:30 07:30 WBC 9.8 RBC 2.91 L Hgb 8.6 L Hct 26.4 L MCV 90.6 MCH 29.4 MCHC 32.5 RDW 17.2 H Plt Count 676 H MPV 7.8 PTT (Actin FS) Sodium 132 L Potassium 4.4 Chloride 93 L Carbon Dioxide 24 Anion Gap 15 BUN 62 H Creatinine 8.2 H* Creat Clearance w eGFR 6.68 POC Glucometer 133 Random Glucose 130 H D Calcium 7.8 L Total Bilirubin 0.6 D AST 14 L D ALT 19 Alkaline Phosphatase 105 Total Protein 6.0 L Albumin 2.1 L 10/08/17 08:45 WBC RBC Hgb Hct MCV MCH MCHC RDW Plt Count MPV PTT (Actin FS) 53.4 H Sodium Potassium Chloride Carbon Dioxide Anion Gap BUN Creatinine Creat Clearance w eGFR POC Glucometer Random Glucose Calcium Total Bilirubin AST ALT Alkaline Phosphatase Total Protein Albumin Problem List - Problems (1) Sepsis Code(s): A41.9 - SEPSIS, UNSPECIFIED ORGANISM (2) ESRD (end stage renal disease) Code(s): N18.6 - END STAGE RENAL DISEASE (3) Diabetes mellitus, insulin dependent (IDDM), controlled Code(s): E11.9 - TYPE 2 DIABETES MELLITUS WITHOUT COMPLICATIONS; Z79.4 - FCI (CURRENT) USE OF INSULIN (4) Amputation, below knee, unilateral, traumatic Code(s): S88.119A - COMPLETE TRAUM AMP AT LEV BETW KN & ANKL, UNSP LOW LEG, INIT (5) Bacteremia due to Gram-positive bacteria Code(s): R78.81 - BACTEREMIA (6) Dyspnea Code(s): R06.00 - DYSPNEA, UNSPECIFIED (7) Acute dyspnea Code(s): R06.00 - DYSPNEA, UNSPECIFIED (8) Chest congestion Code(s): R09.89 - OTH SYMPTOMS AND SIGNS INVOLVING THE CIRC AND RESP SYSTEMS (9) Peripheral vascular disease due to secondary diabetes Code(s): E13.51 - OTH DIABETES W DIABETIC PERIPHERAL ANGIOPATHY W/O GANGRENE (10) HTN (hypertension) Code(s): I10 - ESSENTIAL (PRIMARY) HYPERTENSION Qualifiers: Hypertension type: essential hypertension Qualified Code(s): I10 - Essential (primary) hypertension IMP GRAM+ BACTEREMIA/SEPSIS DYSPNEA LOW SUSPICION OF PNA / BASILAR ATELECTASIS ON CXR ESRD ON HD PVD S/P LEFT BKA IDDM HTN PLAN ABX PER ID AC O2 NEEDED INHALED BRONCHODILATORS HD PER RENAL VTE PROPHYLAXIS BD TX PRN D/C PLANNING DR CARROLL
[2017-10-08 12:03] LABS: ANISOCYTOSIS 1+; MACROCYTOSIS 1+; PLATELET ESTIMATE INCREASED
[2017-10-08] MEDS ORDERED: EPOETIN ALFA 10,000 UNIT/1 ML VIAL SQ ONE (13:00)
--- NOTE | 2017-10-08 13:31 | PN ---
Progress Note, Physician History of Present Illness: stable doing well c/o of neck pain - Current Medication List Current Medications: Active Medications Acetaminophen (Tylenol -) 650 mg PO Q6H PRN PRN Reason: PAIN LEVEL 4 - 6 Last Admin: 10/04/17 21:37 Dose: 650 mg Doxazosin Mesylate (Cardura -) 4 mg PO DAILY [facility] Last Admin: 10/07/17 09:48 Dose: 4 mg Gabapentin (Neurontin -) 100 mg PO BID [facility] Last Admin: 10/07/17 21:44 Dose: 100 mg Heparin Sodium (Porcine) (Heparin -) 1,000 unit IVPUSH PRN PRN PRN Reason: Heparin Heparin Sodium (Porcine) (Heparin -) 5,000 unit IVPUSH PRN PRN PRN Reason: Heparin Last Admin: 10/07/17 22:33 Dose: 5,000 unit Daptomycin 500 mg/ Sodium (Chloride) 100 mls @ 200 mls/hr IVPB MoWeFr@1000 [facility] ; Protocol Last Admin: 10/07/17 17:58 Dose: Not Given Heparin Sodium (Porcine) 25, (000 unit/ Sodium Chloride) 500 mls @ 34 mls/hr IV TITR [facility]; Protocol Last Admin: 10/07/17 22:35 Dose: 1,850 unit/hr, 37 mls/hr Insulin Aspart (Novolog Vial Sliding Scale -) 1 vial SQ ACHS [facility]; Protocol Last Admin: 10/08/17 12:40 Dose: Not Given Insulin Detemir (Levemir Vial) 10 units SQ DAILY@0700 [facility] Last Admin: 10/08/17 07:33 Dose: 10 units Lidocaine (Lidoderm Patch -) 1 patch TP DAILY [facility] Last Admin: 10/08/17 09:42 Dose: Not Given Metoprolol Tartrate (Lopressor -) 50 mg PO BID [facility] Last Admin: 10/07/17 21:44 Dose: 50 mg Miscellaneous (Lidoderm Patch Removal) 1 each MC DAILY@2200 [facility] Last Admin: 10/07/17 21:47 Dose: Not Given Oxycodone HCl (Roxicodone -) 10 mg PO Q4H PRN PRN Reason: PAIN LEVEL 7 - 10 Last Admin: 10/08/17 07:09 Dose: 10 mg Sevelamer Carbonate (Renvela -) 1,600 mg PO TIDCM [facility] Last Admin: 10/08/17 12:40 Dose: Not Given Trazodone HCl (Desyrel -) 300 mg PO HS [facility] Last Admin: 10/07/17 21:45 Dose: 300 mg - Objective Vital Signs: Vital Signs Temperature 97.2 F L 10/08/17 09:47 Pulse Rate 79 10/08/17 12:10 Respiratory Rate 18 10/08/17 12:10 Blood Pressure 112/74 10/08/17 12:10 O2 Sat by Pulse Oximetry (%) 92 L 10/08/17 09:00 Constitutional: Yes: No Distress, Calm Cardiovascular: Yes: Regular Rate and Rhythm Respiratory: Yes: Regular, CTA Bilaterally Gastrointestinal: Yes: Normal Bowel Sounds, Soft Musculoskeletal: Yes: WNL Extremities: Yes: WNL Neurological: Yes: Alert, Oriented Labs: CBC, BMP 10/08/17 07:30 10/08/17 07:30 INR, PTT INR 1.14 (0.82-1.09) 09/25/17 10:38 Assessment/Plan patient just coming back form [facility] also received a dose of dapto gm positive bacteremia esrd fever hyperkalemia hyponatremia pericardial effusion plan continue dapto repeat cx negative patients pain is better continue dialysis
[2017-10-08] MEDS: DAPTOMYCIN 500 MG in SODIUM CHLORIDE 100 ML IVPB SCH ×2 (14:32→16:26)
--- NOTE | 2017-10-08 14:36 | PN ---
Progress Note, Physician Chief Complaint: the patient seen in dialysis. A left femoral catheter is being used. Reports no new problems. No fever. - Current Medication List Current Medications: Active Medications Acetaminophen (Tylenol -) 650 mg PO Q6H PRN PRN Reason: PAIN LEVEL 4 - 6 Last Admin: 10/04/17 21:37 Dose: 650 mg Doxazosin Mesylate (Cardura -) 4 mg PO DAILY [facility] Last Admin: 10/07/17 09:48 Dose: 4 mg Gabapentin (Neurontin -) 100 mg PO BID [facility] Last Admin: 10/07/17 21:44 Dose: 100 mg Heparin Sodium (Porcine) (Heparin -) 1,000 unit IVPUSH PRN PRN PRN Reason: Heparin Heparin Sodium (Porcine) (Heparin -) 5,000 unit IVPUSH PRN PRN PRN Reason: Heparin Last Admin: 10/07/17 22:33 Dose: 5,000 unit Daptomycin 500 mg/ Sodium (Chloride) 100 mls @ 200 mls/hr IVPB MoWeFr@1000 [facility] ; Protocol Last Admin: 10/07/17 17:58 Dose: Not Given Heparin Sodium (Porcine) 25, (000 unit/ Sodium Chloride) 500 mls @ 34 mls/hr IV TITR [facility]; Protocol Last Admin: 10/07/17 22:35 Dose: 1,850 unit/hr, 37 mls/hr Insulin Aspart (Novolog Vial Sliding Scale -) 1 vial SQ ACHS [facility]; Protocol Last Admin: 10/08/17 12:40 Dose: Not Given Insulin Detemir (Levemir Vial) 10 units SQ DAILY@0700 [facility] Last Admin: 10/08/17 07:33 Dose: 10 units Lidocaine (Lidoderm Patch -) 1 patch TP DAILY [facility] Last Admin: 10/08/17 09:42 Dose: Not Given Metoprolol Tartrate (Lopressor -) 50 mg PO BID [facility] Last Admin: 10/07/17 21:44 Dose: 50 mg Miscellaneous (Lidoderm Patch Removal) 1 each MC DAILY@2200 [facility] Last Admin: 10/07/17 21:47 Dose: Not Given Oxycodone HCl (Roxicodone -) 10 mg PO Q4H PRN PRN Reason: PAIN LEVEL 7 - 10 Last Admin: 10/08/17 07:09 Dose: 10 mg Sevelamer Carbonate (Renvela -) 1,600 mg PO TIDCM [facility] Last Admin: 10/08/17 12:40 Dose: Not Given Trazodone HCl (Desyrel -) 300 mg PO HS [facility] Last Admin: 10/07/17 21:45 Dose: 300 mg - Objective Vital Signs: Vital Signs Temperature 97.2 F L 10/08/17 09:47 Pulse Rate 79 10/08/17 12:10 Respiratory Rate 18 10/08/17 12:10 Blood Pressure 112/74 10/08/17 12:10 O2 Sat by Pulse Oximetry (%) 92 L 10/08/17 09:00 Constitutional: Yes: Well Nourished, Calm HENT: Yes: Normocephalic Neck: Yes: Decreased ROM, Tenderness Cardiovascular: Yes: Regular Rate and Rhythm, S1, S2 Respiratory: Yes: Regular, Diminished Gastrointestinal: Yes: Normal Bowel Sounds, Soft Genitourinary: No: CVA Tenderness - Left, CVA Tenderness - Right Musculoskeletal: Yes: Back Pain, Joint Stiffness, Muscle Pain Neurological: Yes: Alert, Oriented Labs: CBC, BMP 10/08/17 07:30 10/08/17 07:30 INR, PTT INR 1.14 (0.82-1.09) 09/25/17 10:38 Problem List - Problems (1) Bacteremia due to Gram-positive bacteria Code(s): R78.81 - BACTEREMIA (2) Dyspnea Code(s): R06.00 - DYSPNEA, UNSPECIFIED (3) ESRD (end stage renal disease) Code(s): N18.6 - END STAGE RENAL DISEASE (4) Hyperglycemia Code(s): R73.9 - HYPERGLYCEMIA, UNSPECIFIED (5) Internal jugular vein thrombosis Code(s): I82.C19 - ACUTE EMBOLISM AND THROMBOSIS OF UNSP INTERNAL JUGULAR VEIN Qualifiers: Laterality: right Qualified Code(s): I82.C11 - Acute embolism and thrombosis of right internal jugular vein (6) Sepsis Code(s): A41.9 - SEPSIS, UNSPECIFIED ORGANISM Qualifiers: Sepsis type: methicillin susceptible Staphylococcus aureus Qualified Code(s ): A41.01 - Sepsis due to Methicillin susceptible Staphylococcus aureus (7) Diabetes mellitus, insulin dependent (IDDM), controlled Code(s): E11.9 - TYPE 2 DIABETES MELLITUS WITHOUT COMPLICATIONS; Z79.4 - [employer] (CURRENT) USE OF INSULIN (8) Amputation, below knee, unilateral, traumatic Code(s): S88.119A - COMPLETE TRAUM AMP AT LEV BETW KN & ANKL, UNSP LOW LEG, INIT (9) Diabetes mellitus Code(s): E11.9 - TYPE 2 DIABETES MELLITUS WITHOUT COMPLICATIONS Qualifiers: Diabetes mellitus type: type 2 Diabetes mellitus terminologist insulin use: without intermediate use Diabetes mellitus complication status: without complication Qualified Code(s): E11.9 - Type 2 diabetes mellitus without complications (10) Diabetic neuropathy Code(s): E11.40 - TYPE 2 DIABETES MELLITUS WITH DIABETIC NEUROPATHY, UNSP Qualifiers: Diabetes mellitus type: type 2 Diabetes mellitus complication detail: diabetic polyneuropathy Qualified Code(s): E11.42 - Type 2 diabetes mellitus with diabetic polyneuropathy (11) Dialysis patient Code(s): Z99.2 - DEPENDENCE ON RENAL DIALYSIS (12) HTN (hypertension) Code(s): I10 - ESSENTIAL (PRIMARY) HYPERTENSION Qualifiers: Hypertension type: essential hypertension Qualified Code(s): I10 - Essential (primary) hypertension (13) Severe anemia Code(s): D64.9 - ANEMIA, UNSPECIFIED Assessment/Plan 62 year old AA gentleman with PMhx of ESRD on HD (TTS) secondary to suspected diabetic nephropathy, DM, Hypertension, PVD who presented outpatient blood cultures that were positive for gram positive Cocci. ESRD on HD Hyperkalemia Hyponatremia Gram + bacteremia/Sepsis Anemia Pericardial effusion IJ thrombosis. The patient has I J thrombosis. NO H D access. IV antibiotics well tolerated. Will continue the same. H D orders reviewed with the RN. Will continue the current regimen. ? T/F on hold Aniyah Chaudhry MD
[2017-10-08 15:01] VITALS: BMI 23.3
[2017-10-08] MEDS: METOPROLOL TARTRATE 50 MG TABLET (FP) PO SCH ×2 (15:08→21:36)
[2017-10-08] MEDS: DOXAZOSIN MESYLATE 4 MG TABLET PO SCH (15:08)
[2017-10-08] MEDS: GABAPENTIN 100 MG CAPSULE (FP) PO SCH ×2 (15:09→21:36)
[2017-10-08] MEDS: HEPARIN - 25,000 UNIT in SODIUM CHLORIDE 495 ML IV SCH ×2 (15:09→17:57)
--- NOTE | 2017-10-08 16:08 | PN ---
Progress Note, Physician History of Present Illness: patient stable still c/o of pain in the rt side of the neck but better - Current Medication List Current Medications: Active Medications Acetaminophen (Tylenol -) 650 mg PO Q6H PRN PRN Reason: PAIN LEVEL 4 - 6 Last Admin: 10/04/17 21:37 Dose: 650 mg Doxazosin Mesylate (Cardura -) 4 mg PO DAILY [facility] Last Admin: 10/08/17 15:08 Dose: 4 mg Gabapentin (Neurontin -) 100 mg PO BID [facility] Last Admin: 10/08/17 15:09 Dose: 100 mg Heparin Sodium (Porcine) (Heparin -) 1,000 unit IVPUSH PRN PRN PRN Reason: Heparin Heparin Sodium (Porcine) (Heparin -) 5,000 unit IVPUSH PRN PRN PRN Reason: Heparin Last Admin: 10/07/17 22:33 Dose: 5,000 unit Daptomycin 500 mg/ Sodium (Chloride) 100 mls @ 200 mls/hr IVPB MoWeFr@1000 [facility] ; Protocol Last Admin: 10/08/17 14:32 Dose: 200 mls/hr Heparin Sodium (Porcine) 25, (000 unit/ Sodium Chloride) 500 mls @ 34 mls/hr IV TITR [facility]; Protocol Last Admin: 10/08/17 15:09 Dose: 1,850 unit/hr, 37 mls/hr Insulin Aspart (Novolog Vial Sliding Scale -) 1 vial SQ ACHS [facility]; Protocol Last Admin: 10/08/17 12:40 Dose: Not Given Insulin Detemir (Levemir Vial) 10 units SQ DAILY@0700 [facility] Last Admin: 10/08/17 07:33 Dose: 10 units Lidocaine (Lidoderm Patch -) 1 patch TP DAILY [facility] Last Admin: 10/08/17 09:42 Dose: Not Given Metoprolol Tartrate (Lopressor -) 50 mg PO BID [facility] Last Admin: 10/08/17 15:08 Dose: 50 mg Miscellaneous (Lidoderm Patch Removal) 1 each MC DAILY@2200 [facility] Last Admin: 10/07/17 21:47 Dose: Not Given Oxycodone HCl (Roxicodone -) 10 mg PO Q4H PRN PRN Reason: PAIN LEVEL 7 - 10 Last Admin: 10/08/17 07:09 Dose: 10 mg Sevelamer Carbonate (Renvela -) 1,600 mg PO TIDCM [facility] Last Admin: 10/08/17 12:40 Dose: Not Given Trazodone HCl (Desyrel -) 300 mg PO HS [facility] Last Admin: 10/07/17 21:45 Dose: 300 mg - Objective Vital Signs: Vital Signs Temperature 98.2 F 10/08/17 15:12 Pulse Rate 72 10/08/17 15:12 Respiratory Rate 16 10/08/17 15:12 Blood Pressure 135/85 10/08/17 15:12 O2 Sat by Pulse Oximetry (%) 92 L 10/08/17 09:00 Constitutional: Yes: No Distress, Calm Cardiovascular: Yes: Regular Rate and Rhythm Respiratory: Yes: Regular, CTA Bilaterally Gastrointestinal: Yes: Normal Bowel Sounds, Soft Musculoskeletal: Yes: WNL Extremities: Yes: Other Neurological: Yes: Alert, Oriented Psychiatric: Yes: Alert, Oriented Labs: CBC, BMP 10/08/17 07:30 10/08/17 07:30 INR, PTT INR 1.14 (0.82-1.09) 09/25/17 10:38 Assessment/Plan patient just coming back form [facility] also received a dose of dapto gm positive bacteremia esrd fever hyperkalemia hyponatremia pericardial effusion plan continue dapto repeat cx negative patients pain is better continue dialysis if patient continues to have pain repeat u/s of the neck check cbc with diff rest as per primary team
--- NOTE | 2017-10-08 17:20 | PN ---
Progress Note (short form) - Note Progress Note: Vascular Surgery Pt seen and examined. CT of head, and neck soft tissue is ordered. Spoke to ID , its ok to place permacath. NPO past midnight. Pt to go for HD in am. [place] DO
[2017-10-08] MEDS ORDERED: traZODone HCL 50 MG TABLET (FP) ONE (21:19)
[2017-10-08] MEDS: LIDOCAINE PATCH REMOVAL MC SCH (21:37)
[2017-10-08] MEDS: traZODone HCL 100 MG TABLET (FP) PO SCH (21:37)
[2017-10-09] MEDS: INSULIN SLIDING SCALE (NOVOLOG) 1 VIAL SQ SCH ×4 (06:59→21:42)
[2017-10-09] MEDS: INSULIN (LEVEMIR) 100 UNITS/ML UNITS SQ SCH (06:59)
[2017-10-09 08:39] LABS: HEMATOCRIT 24.7 % (35.4-49); MCH 29.4 pg (25.7-33.7); MCHC 32.4 g/dl (32.0-35.9); MEAN CELL VOLUME 90.7 fl (80-96); MEAN PLT VOLUME 7.1 fl (7.5-11.1); PLATELET COUNT 674 K/MM3 (134-434); RBC 2.72 M/mm3 (4.00-5.60); RDW 17.3 % (11.9-15.9)
[2017-10-09 09:23] LABS: ALBUMIN 1.9 g/dl (3.4-5.0); ANION GAP 10 (8-16); BILIRUBIN,TOTAL 0.3 mg/dL (0.2-1.0); BLOOD UREA NITROGEN 33 mg/dL (7-18); CALCIUM 7.4 mg/dL (8.5-10.1); CHLORIDE 100 mmol/L (98-107); CO2 28 mmol/L (21-32); CREATININE 5.4 mg/dL (0.7-1.3); GLUCOSE,RANDOM 197 mg/dL (74-106); MAGNESIUM 2.1 mg/dL (1.8-2.4); POTASSIUM 4.4 mmol/L (3.5-5.1); SGOT/AST 14 U/L (15-37); SGPT/ALT 20 U/L (12-78); SODIUM 138 mmol/L (136-145); TOT PROT 5.7 g/dl (6.4-8.2)
[2017-10-09 09:26] LABS: ALK PHOS 111 U/L (45-117)
[2017-10-09] MEDS: LIDOCAINE 5% TOPICAL PATCH TP SCH (10:27)
[2017-10-09] MEDS: DOXAZOSIN MESYLATE 4 MG TABLET PO SCH (10:27)
[2017-10-09] MEDS: SEVELAMER CARBONATE 800 MG TAB (FP) PO SCH ×3 (10:27→17:33)
[2017-10-09] MEDS: METOPROLOL TARTRATE 50 MG TABLET (FP) PO SCH ×2 (10:27→21:31)
[2017-10-09] MEDS: GABAPENTIN 100 MG CAPSULE (FP) PO SCH ×2 (10:28→21:32)
[2017-10-09] MEDS: oxyCODONE HCL 5 MG TABLET PO PRN (11:06)
[2017-10-09] MEDS: HEPARIN NA (PORCINE) 5,000 UNITS/ML 1ML VIAL IVPUSH PRN (12:37)
[2017-10-09] MEDS: HEPARIN - 25,000 UNIT in SODIUM CHLORIDE 495 ML IV SCH ×2 (12:41→18:00)
--- NOTE | 2017-10-09 12:58 | PN ---
Progress Note, Physician Chief Complaint: The patient seen in dialysis after the CT scan with IV contrast. The Femoral catheter is being used. The IJ thrombosis is getting worse. - Current Medication List Current Medications: Active Medications Acetaminophen (Tylenol -) 650 mg PO Q6H PRN PRN Reason: PAIN LEVEL 4 - 6 Last Admin: 10/04/17 21:37 Dose: 650 mg Doxazosin Mesylate (Cardura -) 4 mg PO DAILY [facility] Last Admin: 10/09/17 10:27 Dose: Not Given Gabapentin (Neurontin -) 100 mg PO BID [facility] Last Admin: 10/09/17 10:28 Dose: Not Given Heparin Sodium (Porcine) (Heparin -) 1,000 unit IVPUSH PRN PRN PRN Reason: Heparin Heparin Sodium (Porcine) (Heparin -) 5,000 unit IVPUSH PRN PRN PRN Reason: Heparin Last Admin: 10/09/17 12:37 Dose: 5,000 unit Daptomycin 500 mg/ Sodium (Chloride) 100 mls @ 200 mls/hr IVPB TuThSa@1000 [facility] ; Protocol Last Admin: 10/08/17 16:26 Dose: Not Given Heparin Sodium (Porcine) 25, (000 unit/ Sodium Chloride) 500 mls @ 34 mls/hr IV TITR [facility]; Protocol Stop: 10/09/17 13:00 Last Admin: 10/09/17 12:41 Dose: 2,000 unit/hr, 40 mls/hr Insulin Aspart (Novolog Vial Sliding Scale -) 1 vial SQ ACHS [facility]; Protocol Last Admin: 10/09/17 11:10 Dose: Not Given Insulin Detemir (Levemir Vial) 10 units SQ DAILY@0700 [facility] Last Admin: 10/09/17 06:59 Dose: Not Given Lidocaine (Lidoderm Patch -) 1 patch TP DAILY [facility] Last Admin: 10/09/17 10:27 Dose: Not Given Metoprolol Tartrate (Lopressor -) 50 mg PO BID [facility] Last Admin: 10/09/17 10:27 Dose: Not Given Miscellaneous (Lidoderm Patch Removal) 1 each MC DAILY@2200 [facility] Last Admin: 10/08/17 21:37 Dose: Not Given Oxycodone HCl (Roxicodone -) 10 mg PO Q4H PRN PRN Reason: PAIN LEVEL 7 - 10 Last Admin: 10/09/17 11:06 Dose: 10 mg Sevelamer Carbonate (Renvela -) 1,600 mg PO TIDCM [facility] Last Admin: 10/09/17 12:40 Dose: Not Given Trazodone HCl (Desyrel -) 300 mg PO HS [facility] Last Admin: 10/08/17 21:37 Dose: 300 mg Zinc Acetate/Diphenhydramine (Benadryl 2% Cream) 1 applic TP DAILY [facility] Last Admin: 10/09/17 11:10 Dose: 1 applic - Objective Vital Signs: Vital Signs Temperature 98.3 F 10/09/17 06:00 Pulse Rate 67 10/09/17 12:00 Respiratory Rate 10/09/17 12:00 Blood Pressure 139/73 10/09/17 12:00 O2 Sat by Pulse Oximetry (%) 92 L 10/08/17 21:00 Constitutional: Yes: Calm Eyes: Yes: Conjunctiva Clear HENT: Yes: Normocephalic Neck: Yes: Trachea Midline Cardiovascular: Yes: S1, S2 Respiratory: Yes: CTA Bilaterally, Diminished Gastrointestinal: Yes: Normal Bowel Sounds, Soft Genitourinary: Yes: Bladder Distention. No: CVA Tenderness - Left, CVA Tenderness - Right Edema: Yes Labs: CBC, BMP 10/09/17 07:09 10/09/17 07:09 INR, PTT INR 1.14 (0.82-1.09) 09/25/17 10:38 Problem List - Problems (1) Bacteremia due to Gram-positive bacteria Code(s): R78.81 - BACTEREMIA (2) Dyspnea Code(s): R06.00 - DYSPNEA, UNSPECIFIED (3) ESRD (end stage renal disease) Code(s): N18.6 - END STAGE RENAL DISEASE (4) Hyperglycemia Code(s): R73.9 - HYPERGLYCEMIA, UNSPECIFIED (5) Internal jugular vein thrombosis Code(s): I82.C19 - ACUTE EMBOLISM AND THROMBOSIS OF UNSP INTERNAL JUGULAR VEIN Qualifiers: Laterality: right Qualified Code(s): I82.C11 - Acute embolism and thrombosis of right internal jugular vein (6) Sepsis Code(s): A41.9 - SEPSIS, UNSPECIFIED ORGANISM Qualifiers: Sepsis type: methicillin susceptible Staphylococcus aureus Qualified Code(s ): A41.01 - Sepsis due to Methicillin susceptible Staphylococcus aureus (7) Diabetes mellitus, insulin dependent (IDDM), controlled Code(s): E11.9 - TYPE 2 DIABETES MELLITUS WITHOUT COMPLICATIONS; Z79.4 - [employer] (CURRENT) USE OF INSULIN (8) Amputation, below knee, unilateral, traumatic Code(s): S88.119A - COMPLETE TRAUM AMP AT LEV BETW KN & ANKL, UNSP LOW LEG, INIT (9) Diabetes mellitus Code(s): E11.9 - TYPE 2 DIABETES MELLITUS WITHOUT COMPLICATIONS Qualifiers: Diabetes mellitus type: type 2 Diabetes mellitus fci insulin use: without fci use Diabetes mellitus complication status: without complication Qualified Code(s): E11.9 - Type 2 diabetes mellitus without complications (10) Diabetic neuropathy Code(s): E11.40 - TYPE 2 DIABETES MELLITUS WITH DIABETIC NEUROPATHY, UNSP Qualifiers: Diabetes mellitus type: type 2 Diabetes mellitus complication detail: diabetic polyneuropathy Qualified Code(s): E11.42 - Type 2 diabetes mellitus with diabetic polyneuropathy (11) Dialysis patient Code(s): Z99.2 - DEPENDENCE ON RENAL DIALYSIS (12) HTN (hypertension) Code(s): I10 - ESSENTIAL (PRIMARY) HYPERTENSION Qualifiers: Hypertension type: essential hypertension Qualified Code(s): I10 - Essential (primary) hypertension (13) Severe anemia Code(s): D64.9 - ANEMIA, UNSPECIFIED Assessment/Plan 62 year old AA gentleman with PMhx of ESRD on HD (TTS) secondary to suspected diabetic nephropathy, DM, Hypertension, PVD who presented outpatient blood cultures that were positive for gram positive Cocci. ESRD on HD Hyperkalemia Hyponatremia Gram + bacteremia/Sepsis Anemia Pericardial effusion IJ thrombosis...worsening. vascular w/u in progress. The patient has I J thrombosis. Getting HD via femoral catheter. IV antibiotics well tolerated. Will continue the same. H D orders reviewed with the RN. Will continue the current regimen. Vascular w/u in progress. Orders for HD reviewed with the RN. Aniyah Chaudhry MD
--- NOTE | 2017-10-09 13:33 | PN ---
Progress Note, Physician History of Present Illness: patient stable dialysis plan for permacath tomorrow - Current Medication List Current Medications: Active Medications Acetaminophen (Tylenol -) 650 mg PO Q6H PRN PRN Reason: PAIN LEVEL 4 - 6 Last Admin: 10/04/17 21:37 Dose: 650 mg Doxazosin Mesylate (Cardura -) 4 mg PO DAILY [facility] Last Admin: 10/09/17 10:27 Dose: Not Given Gabapentin (Neurontin -) 100 mg PO BID [facility] Last Admin: 10/09/17 10:28 Dose: Not Given Heparin Sodium (Porcine) (Heparin -) 1,000 unit IVPUSH PRN PRN PRN Reason: Heparin Heparin Sodium (Porcine) (Heparin -) 5,000 unit IVPUSH PRN PRN PRN Reason: Heparin Last Admin: 10/09/17 12:37 Dose: 5,000 unit Daptomycin 500 mg/ Sodium (Chloride) 100 mls @ 200 mls/hr IVPB TuThSa@1000 [facility] ; Protocol Last Admin: 10/08/17 16:26 Dose: Not Given Insulin Aspart (Novolog Vial Sliding Scale -) 1 vial SQ [facility]; Protocol Last Admin: 10/09/17 11:10 Dose: Not Given Insulin Detemir (Levemir Vial) 10 units SQ DAILY@0700 [facility] Last Admin: 10/09/17 06:59 Dose: Not Given Lidocaine (Lidoderm Patch -) 1 patch TP DAILY [facility] Last Admin: 10/09/17 10:27 Dose: Not Given Metoprolol Tartrate (Lopressor -) 50 mg PO BID [facility] Last Admin: 10/09/17 10:27 Dose: Not Given Miscellaneous (Lidoderm Patch Removal) 1 each MC DAILY@2200 [facility] Last Admin: 10/08/17 21:37 Dose: Not Given Oxycodone HCl (Roxicodone -) 10 mg PO Q4H PRN PRN Reason: PAIN LEVEL 7 - 10 Last Admin: 10/09/17 11:06 Dose: 10 mg Sevelamer Carbonate (Renvela -) 1,600 mg PO TIDCM [facility] Last Admin: 10/09/17 12:40 Dose: Not Given Trazodone HCl (Desyrel -) 300 mg PO [facility] Last Admin: 10/08/17 21:37 Dose: 300 mg Zinc Acetate/Diphenhydramine (Benadryl 2% Cream) 1 applic TP DAILY [facility] Last Admin: 10/09/17 11:10 Dose: 1 applic - Objective Vital Signs: Vital Signs Temperature 98.3 F 10/09/17 06:00 Pulse Rate 71 10/09/17 13:00 Respiratory Rate 10/09/17 13:00 Blood Pressure 143/76 10/09/17 13:00 O2 Sat by Pulse Oximetry (%) 92 L 10/08/17 21:00 Constitutional: Yes: Calm, Mild Distress Cardiovascular: Yes: Regular Rate and Rhythm Respiratory: Yes: Regular, CTA Bilaterally Gastrointestinal: Yes: Normal Bowel Sounds, Soft Musculoskeletal: Yes: WNL Extremities: Yes: Other Labs: CBC, BMP 10/09/17 07:09 10/09/17 07:09 INR, PTT INR 1.14 (0.82-1.09) 09/25/17 10:38 Assessment/Plan gm positive bacteremia esrd fever hyperkalemia hyponatremia pericardial effusion plan continue dapto repeat cx negative patients pain is better continue dialysis
--- NOTE | 2017-10-09 13:45 | PN ---
Progress Note, Physician History of Present Illness: Seen at HD, last blood cultures sent shows clearance of MRSA bacteremia. Left femoral shiley placed for HD access. - Current Medication List Current Medications: Active Medications Acetaminophen (Tylenol -) 650 mg PO Q6H PRN PRN Reason: PAIN LEVEL 4 - 6 Last Admin: 10/04/17 21:37 Dose: 650 mg Doxazosin Mesylate (Cardura -) 4 mg PO DAILY [facility] Last Admin: 10/09/17 10:27 Dose: Not Given Gabapentin (Neurontin -) 100 mg PO BID [facility] Last Admin: 10/09/17 10:28 Dose: Not Given Heparin Sodium (Porcine) (Heparin -) 1,000 unit IVPUSH PRN PRN PRN Reason: Heparin Heparin Sodium (Porcine) (Heparin -) 5,000 unit IVPUSH PRN PRN PRN Reason: Heparin Last Admin: 10/09/17 12:37 Dose: 5,000 unit Daptomycin 500 mg/ Sodium (Chloride) 100 mls @ 200 mls/hr IVPB TuThSa@1000 [facility] ; Protocol Last Admin: 10/08/17 16:26 Dose: Not Given Insulin Aspart (Novolog Vial Sliding Scale -) [facility]; Protocol Last Admin: 10/09/17 11:10 Dose: Not Given Insulin Detemir (Levemir Vial) 10 units SQ DAILY@0700 [facility] Last Admin: 10/09/17 06:59 Dose: Not Given Lidocaine (Lidoderm Patch -) 1 patch TP DAILY [facility] Last Admin: 10/09/17 10:27 Dose: Not Given Metoprolol Tartrate (Lopressor -) 50 mg PO BID [facility] Last Admin: 10/09/17 10:27 Dose: Not Given Miscellaneous (Lidoderm Patch Removal) 1 each MC DAILY@2200 [facility] Last Admin: 10/08/17 21:37 Dose: Not Given Oxycodone HCl (Roxicodone -) 10 mg PO Q4H PRN PRN Reason: PAIN LEVEL 7 - 10 Last Admin: 10/09/17 11:06 Dose: 10 mg Sevelamer Carbonate (Renvela -) 1,600 mg PO TIDCM [facility] Last Admin: 10/09/17 12:40 Dose: Not Given Trazodone HCl (Desyrel -) 300 mg PO HS [facility] Last Admin: 10/08/17 21:37 Dose: 300 mg Zinc Acetate/Diphenhydramine (Benadryl 2% Cream) 1 applic TP DAILY [facility] Last Admin: 10/09/17 11:10 Dose: 1 applic - Objective Vital Signs: Vital Signs Temperature 98.3 F 10/09/17 06:00 Pulse Rate 71 10/09/17 13:00 Respiratory Rate 18 10/09/17 13:00 Blood Pressure 143/76 10/09/17 13:00 O2 Sat by Pulse Oximetry (%) 92 L 10/08/17 21:00 Constitutional: Yes: No Distress, Calm Neck: Yes: Supple Cardiovascular: Yes: Regular Rate and Rhythm Respiratory: Yes: Regular, CTA Bilaterally Gastrointestinal: Yes: Normal Bowel Sounds, Soft Extremities: Yes: Amputation (Left BKA) Edema: No Labs: CBC, BMP 10/09/17 07:09 10/09/17 07:09 INR, PTT INR 1.14 (0.82-1.09) 09/25/17 10:38 Problem List - Problems (1) Bacteremia due to Gram-positive bacteria Code(s): R78.81 - BACTEREMIA (2) ESRD (end stage renal disease) Code(s): N18.6 - END STAGE RENAL DISEASE (3) Sepsis Code(s): A41.9 - SEPSIS, UNSPECIFIED ORGANISM Qualifiers: Sepsis type: methicillin susceptible Staphylococcus aureus Qualified Code(s ): A41.01 - Sepsis due to Methicillin susceptible Staphylococcus aureus (4) Diabetes mellitus, insulin dependent (IDDM), controlled Code(s): E11.9 - TYPE 2 DIABETES MELLITUS WITHOUT COMPLICATIONS; 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C11 - Acute embolism and thrombosis of right internal jugular vein Assessment/Plan 09/30/2017 CHAKA: Normal biventricular size and fxn, mild AR, MO, MR, no SIS thrombus or vegetations 1. MRSA bacteremia suspect line sepsis from indwelling dialysis catheter - catheter removed - intermittently febrile due to sepsis 2. ESRD on HD, suspected diabetic nephropathy 3. 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 Type 2 DM 5. HTN/HCVD 6. PAD 7. Anemia of chronic kidney disease 8. Bacteruria 9. Right IJ thrombus probably catheter related, possible septic 10. PAD s/p left BKA PLAN: 1. Antibiotic course per ID, repeat surveillance cx demonstrated clearance post catheter removal . CHAKA shows no evidence of vegetations 2. Consideration for Right IJ thrombectomy by IR, currently on heparin gtt, transition to coumadin per INR if thrombectomy not planned 3. Continue Lopressor 50 bid, Cardura 4 qd 4. F/u head and neck CT results, planned for PC
[2017-10-09] MEDS ORDERED: LIDOCAINE HCL 1%, 10 MG/ML (20ML VIAL) ONE (14:56)
--- NOTE | 2017-10-09 16:58 | PN ---
Progress Note (short form) - Note Progress Note: pt seen and examined chart reviewed in detail vascular f/u noted. neuro yet to see the pt. O/E AFVSS NAD awake and alert Rt. neck swelling RRR, No M/R CTA soft NT/ND No LE edema, Left BKA RUE swelling Last Vital Signs Temp Pulse Resp BP Pulse Ox 98.6 F 88 18 130/70 92 L 10/09/17 15:48 10/09/17 15:48 10/09/17 15:48 10/09/17 15:48 10/08/17 21:00 CBC, BMP 10/09/17 07:09 10/09/17 07:09 Current Medications Generic Name Dose Route Start Last Admin Trade Name Freq PRN Reason Stop Dose Admin Acetaminophen 650 mg 10/01/17 05:28 10/04/17 21:37 Tylenol - PO 650 mg Q6H PRN Administration PAIN LEVEL 4 - 6 Doxazosin Mesylate 4 mg 10/01/17 10:00 10/09/17 10:27 Cardura - PO Not Given DAILY [facility] Gabapentin 100 mg 10/01/17 10:00 10/09/17 10:28 Neurontin - PO Not Given BID [facility] Heparin Sodium (Porcine) 1,000 unit 10/07/17 15:21 Heparin - IVPUSH PRN PRN Heparin Heparin Sodium (Porcine) 5,000 unit 10/07/17 14:22 10/09/17 12:37 Heparin - IVPUSH 5,000 unit PRN PRN Administration Heparin Daptomycin 500 mg/ Sodium 100 mls @ 200 mls/hr 10/08/17 14:30 10/08/17 16:26 Chloride IVPB Not Given TuThSa@1000 [facility] Protocol Insulin Aspart 1 vial 10/01/17 07:00 10/09/17 11:10 Novolog Vial Sliding Scale - SQ Not Given ACHS [facility] Protocol Insulin Detemir 10 units 10/01/17 07:00 10/09/17 06:59 Levemir Vial SQ Not Given DAILY@0700 [facility] Lidocaine 1 patch 10/01/17 11:45 10/09/17 10:27 Lidoderm Patch - TP Not Given DAILY [facility] Metoprolol Tartrate 50 mg 10/01/17 10:00 10/09/17 10:27 Lopressor - PO Not Given BID [facility] Miscellaneous 1 each 10/01/17 22:00 10/08/17 21:37 Lidoderm Patch Removal MC Not Given DAILY@2200 [facility] Oxycodone HCl 10 mg 10/06/17 20:09 10/09/17 11:06 Roxicodone - PO 10 mg Q4H PRN Administration PAIN LEVEL 7 - 10 Sevelamer Carbonate 1,600 mg 10/01/17 08:00 10/09/17 12:40 Renvela - PO Not Given TIDCM [facility] Trazodone HCl 300 mg 10/01/17 22:00 10/08/17 21:37 Desyrel - PO 300 mg HS [facility] Administration Zinc Acetate/Diphenhydramine 1 applic 10/08/17 17:30 10/09/17 11:10 Benadryl 2% Cream TP 1 applic DAILY [facility] Administration 62 y/o male with DM,HTN,ESRD on HD, anemia, PVD, G+ bacteremia now with Rt. IJ septic thrombophlebitis. On heparin drip currently Lt. shiley catheter CT soft tissues of neck 09/27 showed rt. IJ thrombus extending into sigmoid sinus- -dural venous sinus thrombosis. MRI brain to r/o infarcts and MRI neck to r/o adenopathy was suggested. Neuro c/s awaited Would consider bridging to coumadin once procedures completed for a period of 3 -6 months and reevaluate risks/benefits Now, ??progression of clot aim for high therapeutic PTT-- at around 70-80. ??alternate choice of Ac extremely difficult to be considered in this patient
--- NOTE | 2017-10-09 17:17 | PN ---
Progress Note (short form) - Note Progress Note: Vascular Surgery Ct neck done today shows clot in svc and in right subclavian. Spoke to IR. IR felt that new permacath might be nidus for further clot. Will hold off today. IV heparin restarted. Al Daly DO
[2017-10-09] MEDS ORDERED: INSULIN (NOVOLOG) ASPART 100 UNITS/ML 10ML VIAL ONE (20:42)
[2017-10-09] MEDS ORDERED: HEPARIN NA (PORCINE) 5,000 UNITS/ML 1ML VIAL IVPUSH ONE (21:11)
[2017-10-09] MEDS ORDERED: HEPARIN NA (PORCINE) 5,000 UNITS/ML 1ML VIAL IVPUSH PRN (21:11)
[2017-10-09] MEDS: traZODone HCL 100 MG TABLET (FP) PO SCH (21:32)
[2017-10-09] MEDS: LIDOCAINE PATCH REMOVAL MC SCH (22:23)
[2017-10-10] MEDS: HEPARIN NA (PORCINE) 5,000 UNITS/ML 1ML VIAL IVPUSH PRN ×2 (00:10→12:10)
[2017-10-10 08:57] LABS: ALK PHOS 88 U/L (45-117); ANION GAP 9 (8-16); BILIRUBIN,TOTAL 0.3 mg/dL (0.2-1.0); BLOOD UREA NITROGEN 23 mg/dL (7-18); CALCIUM 7.9 mg/dL (8.5-10.1); CHLORIDE 99 mmol/L (98-107); CO2 29 mmol/L (21-32); CREATININE 4.1 mg/dL (0.7-1.3); GLUCOSE,RANDOM 152 mg/dL (74-106); MAGNESIUM 1.9 mg/dL (1.8-2.4); POTASSIUM 4.2 mmol/L (3.5-5.1); SGOT/AST 13 U/L (15-37); SGPT/ALT 18 U/L (12-78); SODIUM 137 mmol/L (136-145); TOT PROT 5.8 g/dl (6.4-8.2)
[2017-10-10 09:05] LABS: INR 1.04 (0.82-1.09); PROTHROMBIN TIME (PATIENT) 11.8 SEC (9.7-13.0)
[2017-10-10] MEDS: INSULIN SLIDING SCALE (NOVOLOG) 1 VIAL SQ SCH ×4 (09:20→21:24)
[2017-10-10] MEDS: INSULIN (LEVEMIR) 100 UNITS/ML UNITS SQ SCH (09:20)
[2017-10-10] MEDS: SEVELAMER CARBONATE 800 MG TAB (FP) PO SCH ×3 (09:21→17:08)
[2017-10-10] MEDS ORDERED: PT OWN MED DRAWER 7, Y5N ONE ×5 (09:29→20:36)
[2017-10-10] MEDS: GABAPENTIN 100 MG CAPSULE (FP) PO SCH ×2 (09:39→21:24)
[2017-10-10] MEDS: METOPROLOL TARTRATE 50 MG TABLET (FP) PO SCH ×2 (09:39→21:24)
[2017-10-10] MEDS: DOXAZOSIN MESYLATE 4 MG TABLET PO SCH (09:39)
[2017-10-10] MEDS: LIDOCAINE 5% TOPICAL PATCH TP SCH (09:41)
--- NOTE | 2017-10-10 09:42 | PN ---
Progress Note (short form) - Note Progress Note: Resting in NAD. No SOB or CP. On IV Heparin for Right IJ/SCV thrombus. Intake & Output 10/07/17 10/08/17 10/09/17 10/10/17 23:59 23:59 23:59 23:59 Intake Total 749 703 259 Output Total 800 400 Balance -51 703 -141 Weight 190 lb 3.2 oz 191 lb 12.8 oz 187 lb 9.6 oz Last Vital Signs Temp Pulse Resp BP Pulse Ox 97.8 F 70 20 161/69 92 L 10/10/17 09:19 10/10/17 09:19 10/10/17 09:19 10/10/17 09:19 10/08/17 21:00 Active Medications Acetaminophen (Tylenol -) 650 mg PO Q6H PRN PRN Reason: PAIN LEVEL 4 - 6 Last Admin: 10/04/17 21:37 Dose: 650 mg Doxazosin Mesylate (Cardura -) 4 mg PO DAILY [facility] Last Admin: 10/09/17 10:27 Dose: Not Given Gabapentin (Neurontin -) 100 mg PO BID [facility] Last Admin: 10/09/17 21:32 Dose: 100 mg Heparin Sodium (Porcine) (Heparin -) 5,000 unit IVPUSH PRN PRN PRN Reason: APTT Heparin Sodium (Porcine) (Heparin -) 1,000 unit IVPUSH PRN PRN PRN Reason: APTT Last Admin: 10/10/17 00:10 Dose: 1,000 unit Daptomycin 500 mg/ Sodium (Chloride) 100 mls @ 200 mls/hr IVPB TuThSa@1000 [facility] ; Protocol Last Admin: 10/08/17 16:26 Dose: Not Given Heparin Sodium (Porcine) 25, (000 unit/ Sodium Chloride) 500 mls @ 20 mls/hr IV TITR [facility]; Protocol Last Titration: 10/10/17 00:10 Dose: 1,100 unit/hr, 22 mls/hr Insulin Aspart (Novolog Vial Sliding Scale -) 1 vial SQ ACHS [facility]; Protocol Last Admin: 10/10/17 09:20 Dose: Not Given Insulin Detemir (Levemir Vial) 10 units SQ DAILY@0700 [facility] Last Admin: 10/10/17 09:20 Dose: Not Given Lidocaine (Lidoderm Patch -) 1 patch TP DAILY [facility] Last Admin: 10/09/17 10:27 Dose: Not Given Metoprolol Tartrate (Lopressor -) 50 mg PO BID [facility] Last Admin: 10/09/17 21:31 Dose: 50 mg Miscellaneous (Lidoderm Patch Removal) 1 each MC DAILY@2200 [facility] Last Admin: 10/09/17 22:23 Dose: Not Given Sevelamer Carbonate (Renvela -) 1,600 mg PO TIDCM [facility] Last Admin: 10/10/17 09:21 Dose: Not Given Trazodone HCl (Desyrel -) 300 mg PO HS [facility] Last Admin: 10/09/17 21:32 Dose: 300 mg Zinc Acetate/Diphenhydramine (Benadryl 2% Cream) 1 applic TP DAILY [facility] Last Admin: 10/09/17 11:10 Dose: 1 applic Constitutional: Yes: No Distress Neck: Yes: Supple Respiratory: Yes: diminished at the bases Gastrointestinal: Yes: Normal Bowel Sounds, Soft Cardiovascular: Yes: Regular Rate and Rhythm Edema: (+) RUE Laboratory Results - last 24 hr 10/09/17 10/09/17 10/09/17 17:00 17:39 21:40 PTT (Actin FS) 38.7 H POC Glucometer 174 217 10/09/17 10/10/17 23:30 05:54 PTT (Actin FS) 46.5 H POC Glucometer 154 Problem List - Problems (1) Sepsis Code(s): A41.9 - SEPSIS, UNSPECIFIED ORGANISM (2) ESRD (end stage renal disease) Code(s): N18.6 - END STAGE RENAL DISEASE (3) Diabetes mellitus, insulin dependent (IDDM), controlled Code(s): E11.9 - TYPE 2 DIABETES MELLITUS WITHOUT COMPLICATIONS; Z79.4 - STRIP POLISHER (CURRENT) USE OF INSULIN (4) Amputation, below knee, unilateral, traumatic Code(s): S88.119A - COMPLETE TRAUM AMP AT LEV BETW KN & ANKL, UNSP LOW LEG, INIT (5) Bacteremia due to Gram-positive bacteria Code(s): R78.81 - BACTEREMIA (6) Dyspnea Code(s): R06.00 - DYSPNEA, UNSPECIFIED (7) Acute dyspnea Code(s): R06.00 - DYSPNEA, UNSPECIFIED (8) Chest congestion Code(s): R09.89 - OTH SYMPTOMS AND SIGNS INVOLVING THE CIRC AND RESP SYSTEMS (9) Peripheral vascular disease due to secondary diabetes Code(s): E13.51 - OTH DIABETES W DIABETIC PERIPHERAL ANGIOPATHY W/O GANGRENE (10) HTN (hypertension) Code(s): I10 - ESSENTIAL (PRIMARY) HYPERTENSION Qualifiers: Hypertension type: essential hypertension Qualified Code(s): I10 - Essential (primary) hypertension IMP GRAM+ BACTEREMIA/SEPSIS DYSPNEA LOW SUSPICION OF PNA / BASILAR ATELECTASIS ON CXR ESRD ON HD PVD S/P LEFT BKA IDDM HTN PLAN AC WITH IV HEPARIN/COUMADIN O2 NEEDED INHALED BRONCHODILATORS PRN HD PER RENAL DR CARROLL
--- NOTE | 2017-10-10 10:13 | PN ---
Progress Note, Physician History of Present Illness: still c/o of itching says slightly better blood cx remain negative swelling of the arm stable - Current Medication List Current Medications: Active Medications Acetaminophen (Tylenol -) 650 mg PO Q6H PRN PRN Reason: PAIN LEVEL 4 - 6 Last Admin: 10/04/17 21:37 Dose: 650 mg Diphenhydramine HCl (Benadryl -) 25 mg PO ONCE ONE Stop: 10/10/17 10:31 Doxazosin Mesylate (Cardura -) 4 mg PO DAILY [facility] Last Admin: 10/10/17 09:39 Dose: 4 mg Gabapentin (Neurontin -) 100 mg PO BID [facility] Last Admin: 10/10/17 09:39 Dose: 100 mg Heparin Sodium (Porcine) (Heparin -) 5,000 unit IVPUSH PRN PRN PRN Reason: APTT Heparin Sodium (Porcine) (Heparin -) 1,000 unit IVPUSH PRN PRN PRN Reason: APTT Last Admin: 10/10/17 00:10 Dose: 1,000 unit Daptomycin 500 mg/ Sodium (Chloride) 100 mls @ 200 mls/hr IVPB TuThSa@1000 [facility] ; Protocol Last Admin: 10/08/17 16:26 Dose: Not Given Heparin Sodium (Porcine) 25, (000 unit/ Sodium Chloride) 500 mls @ 20 mls/hr IV TITR [facility]; Protocol Last Titration: 10/10/17 00:10 Dose: 1,100 unit/hr, 22 mls/hr Insulin Aspart (Novolog Vial Sliding Scale -) 1 vial SQ ACHS [facility]; Protocol Last Admin: 10/10/17 09:20 Dose: Not Given Insulin Detemir (Levemir Vial) 10 units SQ DAILY@0700 [facility] Last Admin: 10/10/17 09:20 Dose: Not Given Lidocaine (Lidoderm Patch -) 1 patch TP DAILY [facility] Last Admin: 10/10/17 09:41 Dose: Not Given Metoprolol Tartrate (Lopressor -) 50 mg PO BID [facility] Last Admin: 10/10/17 09:39 Dose: 50 mg Miscellaneous (Lidoderm Patch Removal) 1 each MC DAILY@2200 [facility] Last Admin: 10/09/17 22:23 Dose: Not Given Oxycodone HCl (Roxicodone -) 10 mg PO Q4H PRN PRN Reason: PAIN LEVEL 7 - 10 Sevelamer Carbonate (Renvela -) 1,600 mg PO TIDCM [facility] Last Admin: 10/10/17 09:21 Dose: Not Given Trazodone HCl (Desyrel -) 300 mg PO HS [facility] Last Admin: 10/09/17 21:32 Dose: 300 mg Zinc Acetate/Diphenhydramine (Benadryl 2% Cream) 1 applic TP DAILY [facility] - Objective Vital Signs: Vital Signs Temperature 97.8 F 10/10/17 09:19 Pulse Rate 70 10/10/17 09:19 Respiratory Rate 20 10/10/17 09:19 Blood Pressure 161/69 10/10/17 09:19 O2 Sat by Pulse Oximetry (%) 92 L 10/08/17 21:00 Constitutional: Yes: Calm, Mild Distress Cardiovascular: Yes: Regular Rate and Rhythm Respiratory: Yes: Regular, CTA Bilaterally Gastrointestinal: Yes: Normal Bowel Sounds, Soft Extremities: Yes: Other Neurological: Yes: Alert, Oriented Psychiatric: Yes: Alert, Oriented Labs: CBC, BMP 10/09/17 07:09 10/09/17 07:09 INR, PTT INR 1.04 (0.82-1.09) 10/10/17 06:30 Assessment/Plan gm positive bacteremia esrd fever hyperkalemia hyponatremia pericardial effusion plan continue dapto repeat cx negative patients pain is better continue dialysis patient will vivian a total of 4 weeks
[2017-10-10] MEDS ORDERED: diphenhydrAMINE HCL 25 MG CAPSULE (FP) PO ONE (10:30)
[2017-10-10] MEDS: DAPTOMYCIN 500 MG in SODIUM CHLORIDE 100 ML IVPB SCH (11:27)
[2017-10-10] MEDS ORDERED: INSULIN (NOVOLOG) ASPART 100 UNITS/ML 10ML VIAL ONE (11:31)
--- NOTE | 2017-10-10 11:34 | PN ---
Progress Note, Physician History of Present Illness: RUE swelling stable, last blood cultures sent shows clearance of MRSA bacteremia. Undergoing HD via left femoral shiley. - Current Medication List Current Medications: Active Medications Acetaminophen (Tylenol -) 650 mg PO Q6H PRN PRN Reason: PAIN LEVEL 4 - 6 Last Admin: 10/04/17 21:37 Dose: 650 mg Doxazosin Mesylate (Cardura -) 4 mg PO DAILY [facility] Last Admin: 10/10/17 09:39 Dose: 4 mg Gabapentin (Neurontin -) 100 mg PO BID [facility] Last Admin: 10/10/17 09:39 Dose: 100 mg Heparin Sodium (Porcine) (Heparin -) 5,000 unit IVPUSH PRN PRN PRN Reason: APTT Heparin Sodium (Porcine) (Heparin -) 1,000 unit IVPUSH PRN PRN PRN Reason: APTT Last Admin: 10/10/17 00:10 Dose: 1,000 unit Daptomycin 500 mg/ Sodium (Chloride) 100 mls @ 200 mls/hr IVPB TuThSa@1000 [facility] ; Protocol Last Admin: 10/10/17 11:27 Dose: Not Given Heparin Sodium (Porcine) 25, (000 unit/ Sodium Chloride) 500 mls @ 20 mls/hr IV TITR [facility]; Protocol Last Titration: 10/10/17 00:10 Dose: 1,100 unit/hr, 22 mls/hr Insulin Aspart (Novolog Vial Sliding Scale -) 1 vial SQ ACHS [facility]; Protocol Last Admin: 10/10/17 09:20 Dose: Not Given Insulin Detemir (Levemir Vial) 10 units SQ DAILY@0700 [facility] Last Admin: 10/10/17 09:20 Dose: Not Given Lidocaine (Lidoderm Patch -) 1 patch TP DAILY [facility] Last Admin: 10/10/17 09:41 Dose: Not Given Metoprolol Tartrate (Lopressor -) 50 mg PO BID [facility] Last Admin: 10/10/17 09:39 Dose: 50 mg Miscellaneous (Lidoderm Patch Removal) 1 each MC DAILY@2200 [facility] Last Admin: 10/09/17 22:23 Dose: Not Given Oxycodone HCl (Roxicodone -) 10 mg PO Q4H PRN PRN Reason: PAIN LEVEL 7 - 10 Sevelamer Carbonate (Renvela -) 1,600 mg PO TIDCM [facility] Last Admin: 10/10/17 09:21 Dose: Not Given Trazodone HCl (Desyrel -) 300 mg PO HS [facility] Last Admin: 10/09/17 21:32 Dose: 300 mg Zinc Acetate/Diphenhydramine (Benadryl 2% Cream) 1 applic TP DAILY [facility] - Objective Vital Signs: Vital Signs Temperature 97.8 F 10/10/17 09:19 Pulse Rate 70 10/10/17 09:19 Respiratory Rate 20 10/10/17 09:19 Blood Pressure 161/69 10/10/17 09:19 O2 Sat by Pulse Oximetry (%) 92 L 10/08/17 21:00 Constitutional: Yes: No Distress, Calm Neck: Yes: Supple Cardiovascular: Yes: Regular Rate and Rhythm Respiratory: Yes: Regular, Diminished Gastrointestinal: Yes: Normal Bowel Sounds, Soft Extremities: Yes: Amputation (Left BKA) Edema: No Labs: CBC, BMP 10/09/17 07:09 10/10/17 06:00 INR, PTT INR 1.04 (0.82-1.09) 10/10/17 06:30 Problem List - Problems (1) Bacteremia due to Gram-positive bacteria Code(s): R78.81 - BACTEREMIA (2) ESRD (end stage renal disease) Code(s): N18.6 - END STAGE RENAL DISEASE (3) Sepsis Code(s): A41.9 - SEPSIS, UNSPECIFIED ORGANISM Qualifiers: Sepsis type: methicillin susceptible Staphylococcus aureus Qualified Code(s ): A41.01 - Sepsis due to Methicillin susceptible Staphylococcus aureus (4) Diabetes mellitus, insulin dependent (IDDM), controlled Code(s): E11.9 - TYPE 2 DIABETES MELLITUS WITHOUT COMPLICATIONS; Z79.4 - 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 (CURRENT) USE OF INSULIN (5) Anemia Code(s): D64.9 - ANEMIA, UNSPECIFIED Qualifiers: Anemia type: due to chronic kidney disease (6) Dialysis patient Code(s): Z99.2 - DEPENDENCE ON RENAL DIALYSIS (7) S/P amputation Code(s): Z89.9 - ACQUIRED ABSENCE OF LIMB, UNSPECIFIED (8) Type 2 diabetes mellitus with foot ulcer Code(s): E11.621 - TYPE 2 DIABETES MELLITUS WITH FOOT ULCER; L97.509 - NON- PRESSURE CHRONIC ULCER OTH PRT UNSP FOOT W UNSP SEVERITY (9) Internal jugular vein thrombosis Code(s): I82.C19 - ACUTE EMBOLISM AND THROMBOSIS OF UNSP INTERNAL JUGULAR VEIN Qualifiers: Laterality: right Qualified Code(s): I82.C11 - Acute embolism and thrombosis of right internal jugular vein Assessment/Plan 09/30/2017 CHAKA: Normal biventricular size and fxn, mild AR, DC, MR, no SIS thrombus or vegetations 1. MRSA bacteremia suspect line sepsis from indwelling dialysis catheter - catheter removed - intermittently febrile due to sepsis 2. ESRD on HD, suspected diabetic nephropathy 3. 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 Type 2 DM 5. HTN/HCVD 6. PAD 7. Anemia of chronic kidney disease 8. Bacteruria 9. Right IJ/SCV thrombus probably catheter related 10. PAD s/p left BKA PLAN: 1. Antibiotic course per ID, repeat surveillance cx demonstrated clearance post catheter removal . CHAKA shows no evidence of vegetations 2. Currently on heparin gtt, transition to coumadin per INR as thrombectomy not planned 3. Continue Lopressor 50 bid, Cardura 4 qd 4. F/u head and neck CT report, PC deferred for now
--- NOTE | 2017-10-10 11:36 | PN ---
Progress Note, Physician Chief Complaint: The patient is comfortable. Has some generalized itching. Skin is dry. - Current Medication List Current Medications: Active Medications Acetaminophen (Tylenol -) 650 mg PO Q6H PRN PRN Reason: PAIN LEVEL 4 - 6 Last Admin: 10/04/17 21:37 Dose: 650 mg Doxazosin Mesylate (Cardura -) 4 mg PO DAILY [facility] Last Admin: 10/10/17 09:39 Dose: 4 mg Gabapentin (Neurontin -) 100 mg PO BID [facility] Last Admin: 10/10/17 09:39 Dose: 100 mg Heparin Sodium (Porcine) (Heparin -) 5,000 unit IVPUSH PRN PRN PRN Reason: APTT Heparin Sodium (Porcine) (Heparin -) 1,000 unit IVPUSH PRN PRN PRN Reason: APTT Last Admin: 10/10/17 00:10 Dose: 1,000 unit Daptomycin 500 mg/ Sodium (Chloride) 100 mls @ 200 mls/hr IVPB TuThSa@1000 [facility] ; Protocol Last Admin: 10/10/17 11:27 Dose: Not Given Heparin Sodium (Porcine) 25, (000 unit/ Sodium Chloride) 500 mls @ 20 mls/hr IV TITR [facility]; Protocol Last Titration: 10/10/17 00:10 Dose: 1,100 unit/hr, 22 mls/hr Insulin Aspart (Novolog Vial Sliding Scale -) 1 vial SQ ACHS [facility]; Protocol Last Admin: 10/10/17 09:20 Dose: Not Given Insulin Detemir (Levemir Vial) 10 units SQ DAILY@0700 [facility] Last Admin: 10/10/17 09:20 Dose: Not Given Lidocaine (Lidoderm Patch -) 1 patch TP DAILY [facility] Last Admin: 10/10/17 09:41 Dose: Not Given Metoprolol Tartrate (Lopressor -) 50 mg PO BID [facility] Last Admin: 10/10/17 09:39 Dose: 50 mg Miscellaneous (Lidoderm Patch Removal) 1 each MC DAILY@2200 [facility] Last Admin: 10/09/17 22:23 Dose: Not Given Oxycodone HCl (Roxicodone -) 10 mg PO Q4H PRN PRN Reason: PAIN LEVEL 7 - 10 Sevelamer Carbonate (Renvela -) 1,600 mg PO TIDCM [facility] Last Admin: 06/14/18 09:21 Dose: Not Given Trazodone HCl (Desyrel -) 300 mg PO HS [facility] Last Admin: 10/09/17 21:32 Dose: 300 mg Zinc Acetate/Diphenhydramine (Benadryl 2% Cream) 1 applic TP DAILY [facility] - Objective Vital Signs: Vital Signs Temperature 97.8 F 10/10/17 09:19 Pulse Rate 70 10/10/17 09:19 Respiratory Rate 20 10/10/17 09:19 Blood Pressure 161/69 10/10/17 09:19 O2 Sat by Pulse Oximetry (%) 92 L 10/08/17 21:00 Constitutional: Yes: Well Nourished, Mild Distress Eyes: Yes: Conjunctiva Clear HENT: Yes: Normocephalic Neck: Yes: Trachea Midline Cardiovascular: Yes: S1, S2 Respiratory: Yes: CTA Bilaterally Gastrointestinal: Yes: Normal Bowel Sounds, Soft Genitourinary: No: CVA Tenderness - Left, CVA Tenderness - Right Edema: Yes Edema: LUE: 1+, LLE: Trace, RLE: Trace Neurological: Yes: Alert, Oriented Labs: CBC, BMP 10/09/17 07:09 10/10/17 06:00 INR, PTT INR 1.04 (0.82-1.09) 10/10/17 06:30 Problem List - Problems (1) Bacteremia due to Gram-positive bacteria Code(s): R78.81 - BACTEREMIA (2) Dyspnea Code(s): R06.00 - DYSPNEA, UNSPECIFIED (3) ESRD (end stage renal disease) Code(s): N18.6 - END STAGE RENAL DISEASE (4) Hyperglycemia Code(s): R73.9 - HYPERGLYCEMIA, UNSPECIFIED (5) Internal jugular vein thrombosis Code(s): I82.C19 - ACUTE EMBOLISM AND THROMBOSIS OF UNSP INTERNAL JUGULAR VEIN Qualifiers: Qualified Code(s): I82.C11 - Acute embolism and thrombosis of right internal jugular vein (6) Sepsis Code(s): A41.9 - SEPSIS, UNSPECIFIED ORGANISM Qualifiers: Qualified Code(s): A41.01 - Sepsis due to Methicillin susceptible Staphylococcus aureus (7) Diabetes mellitus, insulin dependent (IDDM), controlled Code(s): E11.9 - TYPE 2 DIABETES MELLITUS WITHOUT COMPLICATIONS; Z79.4 - LONG-TERM (CURRENT) USE OF INSULIN (8) Amputation, below knee, unilateral, traumatic Code(s): S88.119A - COMPLETE TRAUM AMP AT LEV BETW KN & ANKL, UNSP LOW LEG, INIT (9) Diabetes mellitus Code(s): E11.9 - TYPE 2 DIABETES MELLITUS WITHOUT COMPLICATIONS Qualifiers: Qualified Code(s): E11.9 - Type 2 diabetes mellitus without complications (10) Diabetic neuropathy Code(s): E11.40 - TYPE 2 DIABETES MELLITUS WITH DIABETIC NEUROPATHY, UNSP Qualifiers: Qualified Code(s): E11.42 - Type 2 diabetes mellitus with diabetic polyneuropathy (11) Dialysis patient Code(s): Z99.2 - DEPENDENCE ON RENAL DIALYSIS (12) HTN (hypertension) Code(s): I10 - ESSENTIAL (PRIMARY) HYPERTENSION Qualifiers: Qualified Code(s): I10 - Essential (primary) hypertension (13) Severe anemia Code(s): D64.9 - ANEMIA, UNSPECIFIED Assessment/Plan 62 year old AA gentleman with PMhx of ESRD on HD (TTS) secondary to suspected diabetic nephropathy, DM, Hypertension, PVD who presented outpatient blood cultures that were positive for gram positive Cocci. Has IJ and SVC thrombosis. On A/c ESRD on HD Hyperkalemia Hyponatremia Gram + bacteremia/Sepsis Anemia Pericardial effusion IJ and SVC thrombosis...worsening. vascular w/u in progress. No permanent access for Hemodialysis. IV antibiotics well tolerated. Will continue the same. H D tomorrow. Vascular and Hematology management to continue. Next Hd tomorrow. . Aniyah Chaudhry MD
[2017-10-10 12:34] LABS: HEMOGLOBIN 8.2 GM/dL (11.7-16.9); MCHC 31.4 g/dl (32.0-35.9); MEAN CELL VOLUME 92.4 fl (80-96); MEAN PLT VOLUME 7.3 fl (7.5-11.1); PLATELET COUNT 637 K/MM3 (134-434); RBC 2.81 M/mm3 (4.00-5.60); RDW 17.4 % (11.9-15.9)
[2017-10-10] MEDS: HEPARIN - 25,000 UNIT in SODIUM CHLORIDE 495 ML IV SCH ×2 (13:58→21:23)
--- NOTE | 2017-10-10 14:22 | PN ---
Physical Exam: SUBJECTIVE: Patient seen and examined, in no distress. Denies pain. OBJECTIVE: Vital Signs Period Temp Pulse Resp BP Sys/Gutierrez Pulse Ox Last 24 Hr 97.8 F-98.6 F 70-88 18-20 130-162/69-77 98 GENERAL: The patient is awake, alert, and fully oriented, in no acute distress. HEAD: Normal with no signs of trauma. EYES: PERRL, extraocular movements intact, sclera anicteric, conjunctiva clear. No ptosis. ENT: Ears normal, nares patent, oropharynx clear without exudates, moist mucous membranes. NECK: Trachea midline, full range of motion, supple, right neck pain LUNGs: diminished bilaterally HEART: Regular rate and rhythm, S1, S2 without murmur, rub or gallop. ABDOMEN: Soft, nontender, nondistended, normoactive bowel sounds, no guarding, no rebound, no hepatosplenomegaly, no masses. EXTREMITIES: Left BKA, skin intact, NEUROLOGICAL: Normal speech, gait not observed. PSYCH: Normal mood, normal affect. SKIN: Warm, dry, normal turgor, no rashes or lesions noted Laboratory Results - last 24 hr 10/09/17 10/09/17 10/09/17 17:00 17:39 21:40 WBC RBC Hgb Hct MCV MCH MCHC RDW Plt Count MPV PT with INR INR PTT (Actin FS) 38.7 H Sodium Potassium Chloride Carbon Dioxide Anion Gap BUN Creatinine Creat Clearance w eGFR POC Glucometer 174 217 Random Glucose Calcium Magnesium Total Bilirubin AST ALT Alkaline Phosphatase Total Protein Albumin 10/09/17 10/10/17 10/10/17 23:30 05:54 06:00 WBC RBC Hgb Hct MCV MCH MCHC RDW Plt Count MPV PT with INR INR PTT (Actin FS) 46.5 H 41.8 H Sodium Potassium Chloride Carbon Dioxide Anion Gap BUN Creatinine Creat Clearance w eGFR POC Glucometer 154 Random Glucose Calcium Magnesium Total Bilirubin AST ALT Alkaline Phosphatase Total Protein Albumin 10/10/17 10/10/17 10/10/17 06:00 06:30 06:30 WBC 8.0 RBC 2.81 L Hgb 8.2 L Hct 26.0 L MCV 92.4 MCH 29.0 MCHC 31.4 L RDW 17.4 H Plt Count 637 H MPV 7.3 L PT with INR 11.80 INR 1.04 PTT (Actin FS) Sodium 137 Potassium 4.2 Chloride 99 Carbon Dioxide 29 Anion Gap 9 BUN 23 H D Creatinine 4.1 H D Creat Clearance w eGFR 14.86 POC Glucometer Random Glucose 152 H D Calcium 7.9 L Magnesium 1.9 Total Bilirubin 0.3 AST 13 L ALT 18 Alkaline Phosphatase 88 D Total Protein 5.8 L Albumin 2.0 L 10/10/17 11:38 WBC RBC Hgb Hct MCV MCH MCHC RDW Plt Count MPV PT with INR INR PTT (Actin FS) Sodium Potassium Chloride Carbon Dioxide Anion Gap BUN Creatinine Creat Clearance w eGFR POC Glucometer 105 Random Glucose Calcium Magnesium Total Bilirubin AST ALT Alkaline Phosphatase Total Protein Albumin Active Medications Generic Name Dose Route Start Last Admin Trade Name Freq PRN Reason Stop Dose Admin Acetaminophen 650 mg 10/01/17 05:28 10/04/17 21:37 Tylenol - PO 650 mg Q6H PRN Administration PAIN LEVEL 4 - 6 Doxazosin Mesylate 4 mg 10/01/17 10:00 10/10/17 09:39 Cardura - PO 4 mg DAILY [facility] Administration Epoetin Joe 10,000 unit 10/11/17 11:38 Procrit - SQ 10/11/17 11:39 ONCE ONE Gabapentin 100 mg 10/01/17 10:00 10/10/17 09:39 Neurontin - PO 100 mg BID [facility] Administration Heparin Sodium (Porcine) 5,000 unit 10/09/17 21:11 Heparin - IVPUSH PRN PRN APTT Heparin Sodium (Porcine) 1,000 unit 10/09/17 21:11 10/10/17 12:10 Heparin - IVPUSH 1,000 unit PRN PRN Administration APTT Daptomycin 500 mg/ Sodium 100 mls @ 200 mls/hr 10/08/17 14:30 10/10/17 11:27 Chloride IVPB Not Given TuThSa@1000 [facility] Protocol Heparin Sodium (Porcine) 25, 500 mls @ 20 mls/hr 10/09/17 21:15 10/10/17 13: 58 000 unit/ Sodium Chloride IV 1,200 unit/hr TITR [facility] 24 mls/hr Administration Protocol 1,000 UNIT/HR Insulin Aspart 1 vial 10/01/17 07:00 10/10/17 11:42 Novolog Vial Sliding Scale - SQ Not Given ACHS [facility] Protocol Insulin Detemir 10 units 10/01/17 07:00 10/10/17 09:20 Levemir Vial SQ Not Given DAILY@0700 [facility] Lidocaine 1 patch 10/01/17 11:45 10/10/17 09:41 Lidoderm Patch - TP Not Given DAILY [facility] Metoprolol Tartrate 50 mg 10/01/17 10:00 10/10/17 09:39 Lopressor - PO 50 mg BID [facility] Administration Miscellaneous 1 each 10/01/17 22:00 10/09/17 22:23 Lidoderm Patch Removal MC Not Given DAILY@2200 [facility] Oxycodone HCl 10 mg 10/10/17 09:25 Roxicodone - PO Q4H PRN PAIN LEVEL 7 - 10 Sevelamer Carbonate 1,600 mg 10/01/17 08:00 10/10/17 11:41 Renvela - PO 1,600 mg TIDCM [facility] Administration Trazodone HCl 300 mg 10/01/17 22:00 10/09/17 21:32 Desyrel - PO 300 mg HS [facility] Administration Zinc Acetate/Diphenhydramine 1 applic 10/10/17 10:00 10/10/17 11:41 Benadryl 2% Cream TP 1 applic DAILY [facility] Administration ASSESSMENT/PLAN: Patient is a 61 year old male with a significant past medical history of diabetes mellitus, hypertension, ESRD (Tues, Thurs, Sat), osteoarthritis and left below the knee amputation. He presents to the ER after being found to have + blood cultures from his last dialysis session 1 week ago from his right permacath site. His CT of nect shows a possible septic vs asceptic thrombus. He as been transferred to the ICU on 09/28/17 when he became hypoglycemic, hypothermic and hypotensive. Hospital course complicated by large left IJ thrombus with worsening RUE edema. Imaging: CT/Soft Tissue Neck CT with contrast 09/27/2017: 1. septic vs aseptic thrombus for right IJ to sigmoid sinus, no abscess in neck seen. Soft tissue and Neck CT pending CT/Soft Tissue Neck CT 10/09/2017: pending read ID: Sepsis Bacteremia/UTI On Daptomycin with dialysis, will need 6 weeks of Daptomycin as per ID Completed Zosyn for UTI Vascular: Right thrombus s/p removal of right IJ may be septic vs. aspectic. Likely secondary to permacath, suspicious for primary site of infection. RUE edema noted, vascular study shows superficial cephalic vein thrombosis CT head and neck with and without IV pending read On Heparin drip, with aptt goal 60-80 Followed by hematology Heme: chronic anemia s/p 2 unit of prbc on 10/02 Monitor h/h Renal: ESRD. Dialysis per renal Endocrine Diabetes. On SS and Levemir. Liable blood sugars noted. CV: Hypertension, controlled. continue home medications. Monitor in the setting of sepsis. F.E.N. Fluids: none needed, fluid restriction 1.2 L Electrolyes: monitor Nutrition: renal diet Prophy: DVT: Heparin gtt GI: deferred
--- NOTE | 2017-10-10 16:30 | PN ---
Progress Note (short form) - Note Progress Note: pt seen and examined chart reviewed in detail vascular f/u noted. neuro yet to see the pt. pt c/o headache/pressure in the eye. O/E AFVSS NAD awake and alert Rt. neck swelling RRR, No M/R CTA soft NT/ND No LE edema, Left BKA RUE swellingLast Vital Signs Temp Pulse Resp BP Pulse Ox 98.4 F 69 18 153/74 98 10/10/17 14:36 10/10/17 14:36 10/10/17 14:36 10/10/17 14:36 10/10/17 09:00 CBC, BMP 10/10/17 06:30 10/10/17 06:00 Current Medications Generic Name Dose Route Start Last Admin Trade Name Freq PRN Reason Stop Dose Admin Acetaminophen 650 mg 10/01/17 05:28 10/04/17 21:37 Tylenol - PO 650 mg Q6H PRN Administration PAIN LEVEL 4 - 6 Diphenhydramine HCl 25 mg 10/10/17 14:55 Benadryl - PO Q6H PRN FOR ITCHING Doxazosin Mesylate 4 mg 10/01/17 10:00 10/10/17 09:39 Cardura - PO 4 mg DAILY [facility] Administration Epoetin Joe 10,000 unit 10/11/17 11:38 Procrit - SQ 10/11/17 11:39 ONCE ONE Gabapentin 100 mg 10/01/17 10:00 10/10/17 09:39 Neurontin - PO 100 mg BID [facility] Administration Heparin Sodium (Porcine) 5,000 unit 10/09/17 21:11 Heparin - IVPUSH PRN PRN APTT Heparin Sodium (Porcine) 1,000 unit 10/09/17 21:11 10/10/17 12:10 Heparin - IVPUSH 1,000 unit PRN PRN Administration APTT Heparin Sodium (Porcine) 25, 500 mls @ 20 mls/hr 10/09/17 21:15 10/10/17 13: 58 000 unit/ Sodium Chloride IV 1,200 unit/hr TITR [facility] 24 mls/hr Administration Protocol 1,000 UNIT/HR Daptomycin 500 mg/ Sodium 100 mls @ 200 mls/hr 10/11/17 10:00 Chloride IVPB MoWeFr@1000 [facility] Protocol Insulin Aspart 1 vial 10/01/17 07:00 10/10/17 11:42 Novolog Vial Sliding Scale - SQ Not Given ACHS [facility] Protocol Insulin Detemir 10 units 10/01/17 07:00 10/10/17 09:20 Levemir Vial SQ Not Given DAILY@0700 [facility] Lidocaine 1 patch 10/01/17 11:45 10/10/17 09:41 Lidoderm Patch - TP Not Given DAILY [facility] Metoprolol Tartrate 50 mg 10/01/17 10:00 10/10/17 09:39 Lopressor - PO 50 mg BID [facility] Administration Miscellaneous 1 each 10/01/17 22:00 10/09/17 22:23 Lidoderm Patch Removal MC Not Given DAILY@2200 [facility] Oxycodone HCl 10 mg 10/10/17 09:25 Roxicodone - PO Q4H PRN PAIN LEVEL 7 - 10 Sevelamer Carbonate 1,600 mg 10/01/17 08:00 10/10/17 11:41 Renvela - PO 1,600 mg TIDCM [facility] Administration Trazodone HCl 300 mg 10/01/17 22:00 10/09/17 21:32 Desyrel - PO 300 mg HS [facility] Administration Zinc Acetate/Diphenhydramine 1 applic 10/10/17 10:00 10/10/17 11:41 Benadryl 2% Cream TP 1 applic DAILY [facility] Administration 62 y/o male with DM,HTN,ESRD on HD, anemia, PVD, G+ bacteremia now with Rt. IJ septic thrombophlebitis. On heparin drip currently Lt. shiley catheter CT soft tissues of neck 09/27 showed rt. IJ thrombus extending into sigmoid sinus- -dural venous sinus thrombosis. MRI brain to r/o infarcts and MRI neck to r/o adenopathy was suggested. Neuro c/s Would consider bridging to coumadin once procedures completed for a period of 3 -6 months and reevaluate risks/benefits aim for high therapeutic PTT ??alternate choice of Ac extremely difficult to be considered in this patient to consider transfer to tertiary care. d/wIR/VAsc/Primary ?difficult for thrombectomy
--- NOTE | 2017-10-10 17:33 | CON.NEURO ---
Consult Consult Specialty:: NEUROLOGY-[facility] Reason for Consultation:: Headache - History of Present Illness Chief Complaint: Headache History of Present Illness: Chart/hx./hospital course noted.The patient is a 62M with a PMH of diabetes, hypertension, irregular heartbeat, ESRD (, , Saturday dialysis), and osteoarthritis, who presents to the ER after being found to have + blood cultures from his last dialysis session 1 week ago from his permacath site. He denies any symptoms of fever, chills, nausea, vomiting but admits to pain on the R side of his head and neck which is "inside" his head, not worse with palpation. He denies any pain from his perma cath site. -Headache- reports began when he had the right JV thrombosis a week ago, constant, daily, 8/10 intensity, "pressure" type. Denies photophobia and all other neurolpogic symptoms. - Past Medical History PROGRAM DIR: Yes: Peripheral Neuropathy Cardio/Vascular: Yes: HTN Gastrointestinal: Yes: GERD Renal/: Yes: Renal Inusuff Infectious Disease: Yes: Other (osteomyelitis) Psych: Yes: Depression Musculoskeletal: Yes: Other (chronic pain) Rheumatology: Yes: Other (history of osteomyelitis) Endocrine: Yes: Diabetes Mellitus - Past Surgical History Past Surgical History: Yes: Amputation (transmetatarsal of Left foot) - Alcohol/Substance Use Hx Alcohol Use: No Number of Drinks Daily: 2 (weekends) - Smoking History Smoking history: Current every day smoker Have you smoked in the past 12 months: Yes Aproximately how many cigarettes per day: 1 If you are a former smoker, when did you quit?: 2 - Social History Usual Living Arrangement: Alone ADL: Support Services History of Recent Travel: No Home Medications - Allergies Allergies/Adverse Reactions: Allergies Allergy/AdvReac Type Severity Reaction Status Date / Time shellfish derived Allergy Severe "HIVES" Verified 03/18/17 14:03 No Known Drug Allergies Allergy Verified 03/18/17 14:03 - Home Medications Home Medications: Ambulatory Orders Ergocalciferol (Vitamin D2) [Vitamin D2] 50,000 unit PO WEEKLY 03/18/17 Albuterol 0.083% Nebulizer Coretta [Ventolin 0.083% Nebulizer Soln -] 1 amp NEB Q4H PRN #120 amp 08/23/17 Amlodipine Besylate [Norvasc -] 10 mg PO DAILY #30 tablet 08/23/17 Ascorbate Calcium [Vitamin C] 500 mg PO DAILY #30 tablet 08/23/17 Duloxetine HCl 30 mg PO DAILY #30 capsule. 08/23/17 Fluticasone Prop 0.05% Nasal [Flonase -] 1 - 2 spray NS DAILY #1 spray.pump Folic Acid - 1 mg PO DAILY #30 tablet 08/23/17 Furosemide [Lasix] 80 mg PO DAILY #30 tablet 08/23/17 Mirtazapine [Remeron -] 30 mg PO HS #30 tablet 08/23/17 Sodium Bicarbonate 325 gr PO BID 09/24/17 Acetaminophen [Tylenol .Regular Strength -] 650 mg PO Q6H PRN tablet 10/06/17 Albuterol 2.5/Ipratropium 0.5 [Duoneb -] 1 amp NEB RQID amp 10/06/17 Daptomycin [Cubicin (Restricted To Id) -] 500 mg IVPB MoWeFr@1000 vial Doxazosin Mesylate [Cardura -] 4 mg PO DAILY tablet 10/06/17 Gabapentin [Neurontin -] 100 mg PO BID capsule 10/06/17 Heparin - 1,000 unit IVPUSH PRN PRN vial 10/06/17 Heparin - 5,000 unit IVPUSH PRN PRN vial 10/06/17 Insulin (Levemir) [Levemir Vial] 10 units SQ DAILY@0700 units 10/06/17 Insulin Sliding Scale [Novolog Vial Sliding Scale -] 1 vial SQ ACHS units 10/06 Lidocaine 5% Patch [Lidoderm -] 1 patch TP DAILY patch 10/06/17 Lidocaine Patch Removal [Lidoderm Patch Removal] 1 each MC DAILY@2200 each 02/13 Metoprolol Tartrate [Lopressor -] 50 mg PO BID tablet 10/06/17 Piperacillin/Tazob 2.25 gm [Zosyn -] 2.25 gm IVPB Q8H-IV vial 10/06/17 Sevelamer Carbonate [Renvela -] 1,600 mg PO TIDCM tab 10/06/17 oxyCODONE HCL [Roxicodone -] 10 mg PO Q4H PRN #10 tablet MDD 6 10/06/17 traZODone HCL [Desyrel -] 300 mg PO HS tablet 10/06/17 Family Disease History - Family Disease History Family Disease History: Diabetes: Mother (), Other: Father (little contact), Mother Physical Exam-Neuro Vital Signs: Vital Signs Temperature 98.4 F 10/10/17 14:36 Pulse Rate 69 10/10/17 14:36 Respiratory Rate 18 10/10/17 14:36 Blood Pressure 153/74 10/10/17 14:36 O2 Sat by Pulse Oximetry (%) 98 10/10/17 09:00 Labs: CBC, BMP 10/10/17 06:30 10/10/17 06:00 INR, PTT INR 1.04 (0.82-1.09) 10/10/17 06:30 - Neuro Exam Eyes: Yes: PERRL (No cranial bruits noted.) Mini Mental Exam: Normal Cranial Nerves II-XII Intact: Yes (No proptosis, no diplopia) DTR's: 0 Right Achilles, 1+ Left Bicep, 1+ Right Bicep, 1+ Left Tricep, 1+ Right Tricep, 1+ Left Brachioradialis, 1+ Right Brachioradialis Response to light touch: Abnormal (diminished both feet) Motor Strength: 5/5: Left Arm, Right Arm, Left Leg, Right Leg Imaging - Results Cat Scan: Report Reviewed (CT head done, not reported as yet) Assessment/Plan Headcahe likely secondary to jv thrombosis, less likely cerebral venous sinus thrombosis. Await k CT head/ neck report. His PEREZ is better today, if persists can use Depacon 500mg ivss q8hrs for pain. Will follow, Thank you, Shahrzad Cordova MD
[2017-10-10] MEDS: diphenhydrAMINE HCL 25 MG CAPSULE (FP) PO PRN (18:41)
[2017-10-10] MEDS: oxyCODONE HCL 5 MG TABLET PO PRN (18:41)
[2017-10-10] MEDS: traZODone HCL 100 MG TABLET (FP) PO SCH (21:23)
[2017-10-10] MEDS: LIDOCAINE PATCH REMOVAL MC SCH (21:28)
[2017-10-11] MEDS: INSULIN SLIDING SCALE (NOVOLOG) 1 VIAL SQ SCH ×3 (06:13→17:32)
[2017-10-11] MEDS: INSULIN (LEVEMIR) 100 UNITS/ML UNITS SQ SCH (06:14)
[2017-10-11 07:37] LABS: HEMATOCRIT 24.9 % (35.4-49); HEMOGLOBIN 8.2 GM/dL (11.7-16.9); MCH 29.9 pg (25.7-33.7); MCHC 32.7 g/dl (32.0-35.9); MEAN CELL VOLUME 91.4 fl (80-96); MEAN PLT VOLUME 7.2 fl (7.5-11.1); PLATELET COUNT 614 K/MM3 (134-434); RBC 2.73 M/mm3 (4.00-5.60); RDW 17.6 % (11.9-15.9); WHITE BLOOD COUNT 8.1 K/mm3 (4.0-10.0)
[2017-10-11 07:44] VITALS: TEMP 98
[2017-10-11] MEDS: SEVELAMER CARBONATE 800 MG TAB (FP) PO SCH ×3 (08:55→17:31)
[2017-10-11] MEDS: METOPROLOL TARTRATE 50 MG TABLET (FP) PO SCH (10:16)
[2017-10-11] MEDS: GABAPENTIN 100 MG CAPSULE (FP) PO SCH (10:16)
[2017-10-11] MEDS: DOXAZOSIN MESYLATE 4 MG TABLET PO SCH (10:17)
[2017-10-11] MEDS: DAPTOMYCIN 500 MG in SODIUM CHLORIDE 100 ML IVPB SCH ×2 (10:19→14:14)
[2017-10-11] MEDS: LIDOCAINE 5% TOPICAL PATCH TP SCH (10:19)
[2017-10-11] MEDS: oxyCODONE HCL 5 MG TABLET PO PRN (10:24)
[2017-10-11] MEDS: ACETAMINOPHEN 325 MG TABLET (FP) PO PRN (10:24)
[2017-10-11] MEDS ORDERED: EPOETIN ALFA 10,000 UNIT/1 ML VIAL SQ ONE (11:30)
--- NOTE | 2017-10-11 13:02 | PN ---
Progress Note, Physician History of Present Illness: Right-sided headache referable to RIJ thrombus, last blood cultures sent shows clearance of MRSA bacteremia. Undergoing HD via left femoral shiley. - Current Medication List Current Medications: Active Medications Acetaminophen (Tylenol -) 650 mg PO Q6H PRN PRN Reason: PAIN LEVEL 4 - 6 Last Admin: 10/11/17 10:24 Dose: 650 mg Diphenhydramine HCl (Benadryl -) 25 mg PO Q6H PRN PRN Reason: FOR ITCHING Last Admin: 10/10/17 18:41 Dose: 25 mg Doxazosin Mesylate (Cardura -) 4 mg PO DAILY [facility] Last Admin: 10/11/17 10:17 Dose: 4 mg Gabapentin (Neurontin -) 100 mg PO BID [facility] Last Admin: 10/11/17 10:16 Dose: 100 mg Heparin Sodium (Porcine) (Heparin -) 5,000 unit IVPUSH PRN PRN PRN Reason: APTT Last Admin: 10/10/17 19:22 Dose: 5,000 unit Heparin Sodium (Porcine) (Heparin -) 1,000 unit IVPUSH PRN PRN PRN Reason: APTT Last Admin: 10/10/17 12:10 Dose: 1,000 unit Heparin Sodium (Porcine) 25, (000 unit/ Sodium Chloride) 500 mls @ 20 mls/hr IV TITR [facility]; Protocol Last Admin: 10/10/17 21:23 Dose: Not Given Daptomycin 500 mg/ Sodium (Chloride) 100 mls @ 200 mls/hr IVPB MoWeFr@1000 [facility] ; Protocol Last Admin: 10/11/17 10:19 Dose: Not Given Insulin Aspart (Novolog Vial Sliding Scale -) 1 vial SQ ACHS [facility]; Protocol Last Admin: 10/11/17 12:20 Dose: Not Given Insulin Detemir (Levemir Vial) 10 units SQ DAILY@0700 [facility] Last Admin: 10/11/17 06:14 Dose: 10 units Lidocaine (Lidoderm Patch -) 1 patch TP DAILY [facility] Last Admin: 10/11/17 10:19 Dose: 1 patch Metoprolol Tartrate (Lopressor -) 50 mg PO BID [facility] Last Admin: 10/11/17 10:16 Dose: 50 mg Miscellaneous (Lidoderm Patch Removal) 1 each MC DAILY@2200 [facility] Last Admin: 10/10/17 21:28 Dose: Not Given Oxycodone HCl (Roxicodone -) 10 mg PO Q4H PRN PRN Reason: PAIN LEVEL 7 - 10 Last Admin: 10/11/17 10:24 Dose: 10 mg Sevelamer Carbonate (Renvela -) 1,600 mg PO TIDCM [facility] Last Admin: 10/11/17 12:16 Dose: Not Given Trazodone HCl (Desyrel -) 300 mg PO HS [facility] Last Admin: 10/10/17 21:23 Dose: 300 mg Zinc Acetate/Diphenhydramine (Benadryl 2% Cream) 1 applic TP DAILY [facility] Last Admin: 10/11/17 10:19 Dose: 1 applic - Objective Vital Signs: Vital Signs Temperature 98.0 F 10/11/17 10:55 Pulse Rate 68 10/11/17 13:00 Respiratory Rate 18 10/11/17 13:00 Blood Pressure 177/86 10/11/17 13:00 O2 Sat by Pulse Oximetry (%) 98 10/11/17 09:00 Constitutional: Yes: No Distress, Calm Neck: Yes: Supple Cardiovascular: Yes: Regular Rate and Rhythm Respiratory: Yes: Regular, CTA Bilaterally Gastrointestinal: Yes: Normal Bowel Sounds, Soft Extremities: Yes: Amputation (Left BKA) Edema: No Labs: CBC, BMP 10/11/17 06:10 10/10/17 06:00 INR, PTT INR 1.04 (0.82-1.09) 10/10/17 06:30 Problem List - Problems (1) Bacteremia due to Gram-positive bacteria Code(s): R78.81 - BACTEREMIA (2) ESRD (end stage renal disease) Code(s): N18.6 - END STAGE RENAL DISEASE (3) Sepsis Code(s): A41.9 - SEPSIS, UNSPECIFIED ORGANISM Qualifiers: Sepsis type: methicillin susceptible Staphylococcus aureus Qualified Code(s ): A41.01 - Sepsis due to Methicillin susceptible Staphylococcus aureus (4) Diabetes mellitus, insulin dependent (IDDM), controlled Code(s): E11.9 - TYPE 2 DIABETES MELLITUS WITHOUT COMPLICATIONS; Z79.4 - MAINTENANCE MAN (CURRENT) USE OF INSULIN (5) Anemia Code(s): D64.9 - ANEMIA, UNSPECIFIED Qualifiers: Anemia type: due to chronic kidney disease (6) Dialysis patient Code(s): Z99.2 - DEPENDENCE ON RENAL DIALYSIS (7) S/P amputation Code(s): Z89.9 - ACQUIRED ABSENCE OF LIMB, UNSPECIFIED (8) Type 2 diabetes mellitus with foot ulcer Code(s): E11.621 - TYPE 2 DIABETES MELLITUS WITH FOOT ULCER; L97.509 - NON- PRESSURE CHRONIC ULCER OTH PRT UNSP FOOT W UNSP SEVERITY (9) Internal jugular vein thrombosis Code(s): I82.C19 - ACUTE EMBOLISM AND THROMBOSIS OF UNSP INTERNAL JUGULAR VEIN Qualifiers: Laterality: right Qualified Code(s): I82.C11 - Acute embolism and thrombosis of right internal jugular vein Assessment/Plan 09/30/2017 CHAKA: Normal biventricular size and fxn, mild AR, FL, MR, no SIS thrombus or vegetations 1. MRSA bacteremia suspect line sepsis from indwelling dialysis catheter - catheter removed - intermittently febrile due to sepsis 2. ESRD on HD, suspected diabetic nephropathy 3. 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 Type 2 DM 5. HTN/HCVD 6. PAD 7. Anemia of chronic kidney disease 8. Bacteruria 9. Right IJ/SCV thrombus probably catheter related 10. PAD s/p left BKA PLAN: 1. Antibiotic course per ID, repeat surveillance cx demonstrated clearance post catheter removal . CHAKA shows no evidence of vegetations 2. Currently on heparin gtt, transition to coumadin per INR, thrombectomy being entertained 3. Continue Lopressor 50 bid, Cardura 4 qd 4. F/u head and neck CT report, PC deferred for now
--- NOTE | 2017-10-11 13:46 | PN ---
Progress Note, Physician Chief Complaint: The patient is comfortable. Seen on dialysis. C/o headache and eye pressure. his central venous thrombosis is extending, upward and inward. - Current Medication List Current Medications: Active Medications Acetaminophen (Tylenol -) 650 mg PO Q6H PRN PRN Reason: PAIN LEVEL 4 - 6 Last Admin: 10/11/17 10:24 Dose: 650 mg Diphenhydramine HCl (Benadryl -) 25 mg PO Q6H PRN PRN Reason: FOR ITCHING Last Admin: 10/10/17 18:41 Dose: 25 mg Doxazosin Mesylate (Cardura -) 4 mg PO DAILY [facility] Last Admin: 10/11/17 10:17 Dose: 4 mg Gabapentin (Neurontin -) 100 mg PO BID [facility] Last Admin: 10/11/17 10:16 Dose: 100 mg Heparin Sodium (Porcine) (Heparin -) 5,000 unit IVPUSH PRN PRN PRN Reason: APTT Last Admin: 10/10/17 19:22 Dose: 5,000 unit Heparin Sodium (Porcine) (Heparin -) 1,000 unit IVPUSH PRN PRN PRN Reason: APTT Last Admin: 10/10/17 12:10 Dose: 1,000 unit Heparin Sodium (Porcine) 25, (000 unit/ Sodium Chloride) 500 mls @ 20 mls/hr IV TITR [facility]; Protocol Last Admin: 10/10/17 21:23 Dose: Not Given Daptomycin 500 mg/ Sodium (Chloride) 100 mls @ 200 mls/hr IVPB MoWeFr@1000 [facility] ; Protocol Last Admin: 10/11/17 10:19 Dose: Not Given Insulin Aspart (Novolog Vial Sliding Scale -) 1 vial SQ ACHS [facility]; Protocol Last Admin: 10/11/17 12:20 Dose: Not Given Insulin Detemir (Levemir Vial) 10 units SQ DAILY@0700 [facility] Last Admin: 10/11/17 06:14 Dose: 10 units Lidocaine (Lidoderm Patch -) 1 patch TP DAILY [facility] Last Admin: 10/11/17 10:19 Dose: 1 patch Metoprolol Tartrate (Lopressor -) 50 mg PO BID [facility] Last Admin: 10/11/17 10:16 Dose: 50 mg Miscellaneous (Lidoderm Patch Removal) 1 each MC DAILY@2200 [facility] Last Admin: 06/14/18 21:28 Dose: Not Given Oxycodone HCl (Roxicodone -) 10 mg PO Q4H PRN PRN Reason: PAIN LEVEL 7 - 10 Last Admin: 10/11/17 10:24 Dose: 10 mg Sevelamer Carbonate (Renvela -) 1,600 mg PO TIDCM [facility] Last Admin: 10/11/17 12:16 Dose: Not Given Trazodone HCl (Desyrel -) 300 mg PO HS [facility] Last Admin: 10/10/17 21:23 Dose: 300 mg Zinc Acetate/Diphenhydramine (Benadryl 2% Cream) 1 applic TP DAILY [facility] Last Admin: 10/11/17 10:19 Dose: 1 applic - Objective Vital Signs: Vital Signs Temperature 98.0 F 10/11/17 10:55 Pulse Rate 68 10/11/17 13:00 Respiratory Rate 18 10/11/17 13:00 Blood Pressure 177/86 10/11/17 13:00 O2 Sat by Pulse Oximetry (%) 98 10/11/17 09:00 Constitutional: Yes: Well Nourished, Anxious HENT: Yes: Normocephalic Cardiovascular: Yes: S1, S2 Respiratory: Yes: CTA Bilaterally, Diminished, Poor Air Entry Gastrointestinal: Yes: Normal Bowel Sounds, Soft Genitourinary: No: Bladder Distention, CVA Tenderness - Left, CVA Tenderness - Right Musculoskeletal: Yes: Joint Stiffness Labs: CBC, BMP 10/11/17 06:10 10/10/17 06:00 INR, PTT INR 1.04 (0.82-1.09) 10/10/17 06:30 Problem List - Problems (1) Bacteremia due to Gram-positive bacteria Code(s): R78.81 - BACTEREMIA (2) Dyspnea Code(s): R06.00 - DYSPNEA, UNSPECIFIED (3) ESRD (end stage renal disease) Code(s): N18.6 - END STAGE RENAL DISEASE (4) Hyperglycemia Code(s): R73.9 - HYPERGLYCEMIA, UNSPECIFIED (5) Internal jugular vein thrombosis Code(s): I82.C19 - ACUTE EMBOLISM AND THROMBOSIS OF UNSP INTERNAL JUGULAR VEIN Qualifiers: Laterality: right Qualified Code(s): I82.C11 - Acute embolism and thrombosis of right internal jugular vein (6) Sepsis Code(s): A41.9 - SEPSIS, UNSPECIFIED ORGANISM Qualifiers: Sepsis type: methicillin susceptible Staphylococcus aureus Qualified Code(s ): A41.01 - Sepsis due to Methicillin susceptible Staphylococcus aureus (7) Diabetes mellitus, insulin dependent (IDDM), controlled Code(s): E11.9 - TYPE 2 DIABETES MELLITUS WITHOUT COMPLICATIONS; Z79.4 - LONGTERM (CURRENT) USE OF INSULIN (8) Amputation, below knee, unilateral, traumatic Code(s): S88.119A - COMPLETE TRAUM AMP AT LEV BETW KN & ANKL, UNSP LOW LEG, INIT (9) Diabetes mellitus Code(s): E11.9 - TYPE 2 DIABETES MELLITUS WITHOUT COMPLICATIONS Qualifiers: Diabetes mellitus type: type 2 Diabetes mellitus groover and turner insulin use: without penitentiary use Diabetes mellitus complication status: without complication Qualified Code(s): E11.9 - Type 2 diabetes mellitus without complications (10) Diabetic neuropathy Code(s): E11.40 - TYPE 2 DIABETES MELLITUS WITH DIABETIC NEUROPATHY, UNSP Qualifiers: Diabetes mellitus type: type 2 Diabetes mellitus complication detail: diabetic polyneuropathy Qualified Code(s): E11.42 - Type 2 diabetes mellitus with diabetic polyneuropathy (11) Dialysis patient Code(s): Z99.2 - DEPENDENCE ON RENAL DIALYSIS (12) HTN (hypertension) Code(s): I10 - ESSENTIAL (PRIMARY) HYPERTENSION Qualifiers: Hypertension type: essential hypertension Qualified Code(s): I10 - Essential (primary) hypertension (13) Severe anemia Code(s): D64.9 - ANEMIA, UNSPECIFIED Assessment/Plan 62 year old AA gentleman with PMhx of ESRD on HD (TTS) secondary to suspected diabetic nephropathy, DM, Hypertension, PVD who presented outpatient blood cultures that were positive for gram positive Cocci. Has IJ and SVC thrombosis. The thrombus is extending and in need on immediate intevention. On A/c. Waiting for t/f to a tertiary center. Hyperkalemia Hyponatremia Gram + bacteremia/Sepsis Anemia Pericardial effusion IJ and SVC thrombosis...worsening. vascular w/u in progress. No permanent access for Hemodialysis. IV antibiotics well tolerated. Will continue the same. Stable on dialysis. Should consider t/f to a tertiary center [place]. Aniyah Chaudhry MD
[2017-10-11 15:11] VITALS: BP 179/91; PULSE 66
--- NOTE | 2017-10-11 15:52 | PN ---
Physical Exam: SUBJECTIVE: Patient seen and examined in dialysis. Aware and agreement for transfer to [facility]. Patient informed that he needs to be evaluated by neuro radiology for multiple clots and those services are not offered here. OBJECTIVE: Spoke to [facility] transfer center @ various times today [phone] , gave report to Dr. Ruiz (medicine) and Dr. Robles (vascular) - coordinated by Xin Hager (visual coordinator), asking for transfer and accepting physician. I am awaiting call back with an accepting physician. Paper work sent to facility Discussed with Dr. Cordova, neurology Vital Signs Period Temp Pulse Resp BP Sys/Gutierrez Pulse Ox Last 24 Hr 98.0 F-98.4 F 61-78 16-18 124-181/54-96 98-98 GENERAL: The patient is awake, alert, and fully oriented, in no acute distress. HEAD: Normal with no signs of trauma, c/o of headache and right neck pain EYES: PERRL, extraocular movements intact, sclera anicteric, conjunctiva clear. No ptosis. ENT: Ears normal, nares patent, oropharynx clear without exudates, moist mucous membranes. NECK: Trachea midline, full range of motion, supple. LUNGS: Breath sounds equal, clear to auscultation bilaterally HEART: Regular rate and rhythm ABDOMEN: Soft, nontender, nondistended, normoactive bowel sounds, no guarding, EXTREMITIES: RUE edema, superficial cephalic vein clot, SVC clot, right IJ clot extending to dural sinus NEUROLOGICAL: Normal speech, gait not observed. PSYCH: Normal mood, normal affect. SKIN: Warm, dry, normal turgor, no rashes or lesions noted Laboratory Results - last 24 hr 10/10/17 10/10/17 10/10/17 17:00 17:04 21:13 WBC RBC Hgb Hct MCV MCH MCHC RDW Plt Count MPV PTT (Actin FS) 31.2 POC Glucometer 152 84 10/11/17 10/11/17 10/11/17 01:15 05:44 06:10 WBC 8.1 RBC 2.73 L Hgb 8.2 L Hct 24.9 L MCV 91.4 MCH 29.9 MCHC 32.7 RDW 17.6 H Plt Count 614 H MPV 7.2 L PTT (Actin FS) 52.5 H D POC Glucometer 182 10/11/17 10/11/17 06:10 14:09 WBC RBC Hgb Hct MCV MCH MCHC RDW Plt Count MPV PTT (Actin FS) 52.2 H POC Glucometer 115 Active Medications Generic Name Dose Route Start Last Admin Trade Name Freq PRN Reason Stop Dose Admin Acetaminophen 650 mg 10/01/17 05:28 10/11/17 10:24 Tylenol - PO 650 mg Q6H PRN Administration PAIN LEVEL 4 - 6 Diphenhydramine HCl 25 mg 10/10/17 14:55 10/10/17 18:41 Benadryl - PO 25 mg Q6H PRN Administration FOR ITCHING Doxazosin Mesylate 4 mg 10/01/17 10:00 10/11/17 10:17 Cardura - PO 4 mg DAILY [facility] Administration Gabapentin 100 mg 10/01/17 10:00 10/11/17 10:16 Neurontin - PO 100 mg BID [facility] Administration Heparin Sodium (Porcine) 5,000 unit 10/09/17 21:11 10/10/17 19:22 Heparin - IVPUSH 5,000 unit PRN PRN Administration APTT Heparin Sodium (Porcine) 1,000 unit 10/09/17 21:11 10/10/17 12:10 Heparin - IVPUSH 1,000 unit PRN PRN Administration APTT Heparin Sodium (Porcine) 25, 500 mls @ 20 mls/hr 10/09/17 21:15 10/10/17 21: 23 000 unit/ Sodium Chloride IV Not Given TITR IGG[facility] Protocol 1,000 UNIT/HR Daptomycin 500 mg/ Sodium 100 mls @ 200 mls/hr 10/11/17 10:00 10/11/17 14:14 Chloride IVPB 200 mls/hr MoWeFr@1000 [facility] Administration Protocol Insulin Aspart 1 vial 10/01/17 07:00 10/11/17 12:20 Novolog Vial Sliding Scale - SQ Not Given ACHS [facility] Protocol Insulin Detemir 10 units 10/01/17 07:00 10/11/17 06:14 Levemir Vial SQ 10 units DAILY@0700 [facility] Administration Lidocaine 1 patch 10/01/17 11:45 10/11/17 10:19 Lidoderm Patch - TP 1 patch DAILY [facility] Administration Metoprolol Tartrate 50 mg 10/01/17 10:00 10/11/17 10:16 Lopressor - PO 50 mg BID [facility] Administration Miscellaneous 1 each 10/01/17 22:00 10/10/17 21:28 Lidoderm Patch Removal MC Not Given DAILY@2200 [facility] Oxycodone HCl 10 mg 10/10/17 09:25 10/11/17 10:24 Roxicodone - PO 10 mg Q4H PRN Administration PAIN LEVEL 7 - 10 Sevelamer Carbonate 1,600 mg 10/01/17 08:00 10/11/17 12:16 Renvela - PO Not Given TIDCM [facility] Trazodone HCl 300 mg 10/01/17 22:00 10/10/17 21:23 Desyrel - PO 300 mg HS [facility] Administration Zinc Acetate/Diphenhydramine 1 applic 10/10/17 10:00 10/11/17 10:19 Benadryl 2% Cream TP 1 applic DAILY [facility] Administration ASSESSMENT/PLAN: Patient is a 61 year old male with a significant past medical history of diabetes mellitus, hypertension, ESRD (Tues, Thurs, Sat), osteoarthritis and left below the knee amputation. He presents to the ER after being found to have + blood cultures from his last dialysis session 1 week ago from his right permacath site. His CT of nect shows a possible septic vs aseptic thrombus. He as been transferred to the ICU on 09/28/17 when he became hypoglycemic, hypothermic and hypotensive. Hospital course complicated by large left IJ thrombus with worsening RUE edema. Imaging: CT/Soft Tissue Neck CT with contrast 09/27/2017: 1. septic vs aseptic thrombus for right IJ to sigmoid sinus, no abscess in neck seen. Soft tissue and Neck CT pending CT/Soft Tissue Neck CT 10/09/2017: pending read ID: Sepsis Bacteremia/UTI On Daptomycin with dialysis, will need 6 weeks of Daptomycin as per ID Completed Zosyn for UTI Vascular/Neuro: Right thrombus s/p removal of right IJ may be septic vs. aspectic. Likely secondary to permacath, suspicious for primary site of infection. RUE edema noted, vascular study shows superficial cephalic vein thrombosis CT head and neck with and without IV pending read, but as per vascular, patient also has SVC clot and in right subclavian. Will need to be transferred to a teritiary center at [facility] as he will need thrombectomy via neuro radiology. On Heparin drip. Followed by hematology. Discussed with Dr. Cordova. Patient continues to c/o of worsening headache and right neck discomfort. Heme: chronic anemia s/p 2 unit of prbc on 10/02 Monitor hmg/hct with goal of hmg of 8.0 Renal: ESRD. Dialysis per renal, had dialysis via left grown catheter access. Endocrine Diabetes. On SS and Levemir. CV: Hypertension, controlled. continue home medications. Monitor in the setting of sepsis. F.E.N. Fluids: none needed, fluid restriction 1.2 L Electrolyes: monitor Nutrition: renal diet Prophy: DVT: Heparin gtt GI: deferred Full code Disposition: Patient is for transfer to [facility]. Accepting physician is Herson Burgess MD. Visit type - Emergency Visit Emergency Visit: Yes ED Registration Date: 09/24/17 Care time: The patient presented to the Emergency Department on the above date and was hospitalized for further evaluation of their emergent condition. - New Patient This patient is new to me today: No - Critical Care Critical Care patient: No - Discharge Referral Referred to [facility] Med P.C.: No
--- NOTE | 2017-10-11 15:55 | PN ---
Progress Note (short form) - Note Progress Note: Patient is a 61 year old male with a significant past medical history of diabetes mellitus, hypertension, ESRD (Tues, Thurs, Sat), osteoarthritis and left below the knee amputation. He presented to the ER after being found to have + blood cultures from his last dialysis session 1 week ago from his right permacath site. His CT of nect shows a possible septic vs asceptic thrombus. He as been transferred to the ICU on 09/28/17 when he became hypoglycemic, hypothermic and hypotensive. Hospital course complicated by large left IJ thrombus with worsening RUE edema. Imaging: CT/Soft Tissue Neck CT with contrast 09/27/2017: 1. septic vs aseptic thrombus for right IJ to sigmoid sinus, no abscess in neck seen. Soft tissue and Neck CT pending CT/Soft Tissue Neck CT 10/09/2017: pending read ID: Sepsis Bacteremia/UTI On Daptomycin with dialysis, will need 6 weeks of Daptomycin as per ID Completed Zosyn for UTI Vascular: Right thrombus s/p removal of right IJ may be septic vs. aspectic. Likely secondary to permacath, suspicious for primary site of infection. RUE edema noted, vascular study shows superficial cephalic vein thrombosis CT head and neck with and without IV pending read On Heparin drip, with aptt goal 60-80 Followed by hematology Pt. reports PEREZ was worse last night, better today. d/w W[employer] (has- pt. with right Ij/cephalic vein thrombus and extension in to sigmoid sinus His exam is unchanged. D/W Ms emilie NP-given extension of patients venous thrombosis will tx. pt. to [facility] for further possible neurointerventional care.
[2017-10-11] MEDS: diphenhydrAMINE HCL 25 MG CAPSULE (FP) PO PRN (17:34)
--- NOTE | 2017-10-11 19:18 | DS ---
Physical Exam: SUBJECTIVE: Patient seen and examined OBJECTIVE: Vital Signs Period Temp Pulse Resp BP Sys/Gutierrez Pulse Ox Last 24 Hr 98.0 F-98.4 F 61-78 16-18 124-181/54-96 98-98 PHYSICAL EXAM GENERAL: The patient is awake, alert, and fully oriented, in no acute distress. HEAD: Normal with no signs of trauma. EYES: PERRL, extraocular movements intact, sclera anicteric, conjunctiva clear. ENT: Ears normal, nares patent, oropharynx clear without exudates, moist mucous membranes. NECK: Trachea midline, full range of motion, supple. LUNGS: Breath sounds equal, clear to auscultation bilaterally, no wheezes, no crackles, no accessory muscle use. HEART: Regular rate and rhythm, S1, S2 without murmur, rub or gallop. ABDOMEN: Soft, nontender, nondistended, normoactive bowel sounds, no guarding, no rebound, no hepatosplenomegaly, no masses. EXTREMITIES: 2+ pulses, warm, well-perfused, no edema. NEUROLOGICAL: Cranial nerves II through XII grossly intact. Normal speech, gait not observed. PSYCH: Normal mood, normal affect. SKIN: Warm, dry, normal turgor, no rashes or lesions noted. LABS Laboratory Results - last 24 hr 10/10/17 10/11/17 10/11/17 21:13 01:15 05:44 WBC RBC Hgb Hct MCV MCH MCHC RDW Plt Count MPV PTT (Actin FS) 52.5 H D POC Glucometer 84 182 10/11/17 10/11/17 10/11/17 06:10 06:10 14:09 WBC 8.1 RBC 2.73 L Hgb 8.2 L Hct 24.9 L MCV 91.4 MCH 29.9 MCHC 32.7 RDW 17.6 H Plt Count 614 H MPV 7.2 L PTT (Actin FS) 52.2 H POC Glucometer 115 10/11/17 17:29 WBC RBC Hgb Hct MCV MCH MCHC RDW Plt Count MPV PTT (Actin FS) POC Glucometer 141 HOSPITAL COURSE: Date of Admission:09/24/17 Date of Discharge: 10/11/17 Discharge Summary Reason For Visit: ACUTE KIDNEY INJURY Current Active Problems FROYLAN (acute kidney injury) (Acute) Acute dyspnea (Acute) Acute hyperkalemia (Acute) Bacteremia due to Gram-positive bacteria (Acute) Chest congestion (Acute) Dyspnea (Acute) ESRD (end stage renal disease) (Acute) Hyperglycemia (Acute) Internal jugular vein thrombosis (Acute) Peripheral vascular disease due to secondary diabetes (Acute) Sepsis (Acute) Diabetes mellitus, insulin dependent (IDDM), controlled (Chronic) Condition: Stable - Instructions Referrals: Tawnya Denise MD [Primary Care Provider] - Disposition: TRANSFER ACUTE CARE/OTHER HOSP - Home Medications Comprehensive Discharge Medication List: Ambulatory Orders Ergocalciferol (Vitamin D2) [Vitamin D2] 50,000 unit PO WEEKLY 03/18/17 Albuterol 0.083% Nebulizer Coretta [Ventolin 0.083% Nebulizer Soln -] 1 amp NEB Q4H PRN #120 amp 08/23/17 Amlodipine Besylate [Norvasc -] 10 mg PO DAILY #30 tablet 08/23/17 Ascorbate Calcium [Vitamin C] 500 mg PO DAILY #30 tablet 08/23/17 Duloxetine HCl 30 mg PO DAILY #30 capsule.dr 08/23/17 Fluticasone Prop 0.05% Nasal [Flonase -] 1 - 2 spray NS DAILY #1 spray.pump Folic Acid - 1 mg PO DAILY #30 tablet 08/23/17 Furosemide [Lasix] 80 mg PO DAILY #30 tablet 08/23/17 Mirtazapine [Remeron -] 30 mg PO HS #30 tablet 08/23/17 Sodium Bicarbonate 325 gr PO BID 09/24/17 Acetaminophen [Tylenol .Regular Strength -] 650 mg PO Q6H PRN tablet 10/06/17 Albuterol 2.5/Ipratropium 0.5 [Duoneb -] 1 amp NEB RQID amp 10/06/17 Daptomycin [Cubicin (Restricted To Id) -] 500 mg IVPB MoWeFr@1000 vial Doxazosin Mesylate [Cardura -] 4 mg PO DAILY tablet 10/06/17 Gabapentin [Neurontin -] 100 mg PO BID capsule 10/06/17 Heparin - 1,000 unit IVPUSH PRN PRN vial 10/06/17 Heparin - 5,000 unit IVPUSH PRN PRN vial 10/06/17 Insulin (Levemir) [Levemir Vial] 10 units SQ DAILY@0700 units 10/06/17 Insulin Sliding Scale [Novolog Vial Sliding Scale -] 1 vial SQ ACHS units 10/06 Lidocaine 5% Patch [Lidoderm -] 1 patch TP DAILY patch 10/06/17 Lidocaine Patch Removal [Lidoderm Patch Removal] 1 each MC DAILY@2200 each 02/13 Metoprolol Tartrate [Lopressor -] 50 mg PO BID tablet 10/06/17 Piperacillin/Tazob 2.25 gm [Zosyn -] 2.25 gm IVPB Q8H-IV vial 10/06/17 Sevelamer Carbonate [Renvela -] 1,600 mg PO TIDCM tab 10/06/17 oxyCODONE HCL [Roxicodone -] 10 mg PO Q4H PRN #10 tablet MDD 6 10/06/17 traZODone HCL [Desyrel -] 300 mg PO HS tablet 10/06/17 - Discharge Referral Referred to [facility] No
--- NOTE | 2017-10-12 08:07 | PN ---
Progress Note, Physician History of Present Illness: patient continues to complain of headache neurology following the patient further imaging studies being dialysed - Objective Vital Signs: Vital Signs Temperature 98.0 F 10/11/17 10:55 Pulse Rate 66 10/11/17 15:10 Respiratory Rate 18 10/11/17 15:10 Blood Pressure 179/91 10/11/17 15:10 O2 Sat by Pulse Oximetry (%) 98 10/11/17 09:00 Constitutional: Yes: Calm, Mild Distress Neck: Yes: Supple, Other Cardiovascular: Yes: Regular Rate and Rhythm Respiratory: Yes: Regular, CTA Bilaterally Gastrointestinal: Yes: Normal Bowel Sounds, Soft Musculoskeletal: Yes: WNL Extremities: Yes: Other Neurological: Yes: Alert, Oriented Psychiatric: Yes: Alert, Oriented Labs: CBC, BMP 10/11/17 06:10 10/10/17 06:00 INR, PTT INR 1.04 (0.82-1.09) 10/10/17 06:30 Assessment/Plan gm positive bacteremia esrd fever hyperkalemia hyponatremia pericardial effusion plan continue dapto repeat cx negative patients pain is better continue dialysis patient will vivian a total of 4 weeks patients will be seen by neurology final plan will be made
== END 2017-10-11 19:41 | disposition short-term general hospital (02) | DRG 314 ==
LOC: JER 09:33 → JERBED 15:33 → J4S 17:43 → JICU 09-28 17:30 → J8W 09-30 20:15
PROVIDERS: ADMIT Internal Medicine; ATTEND Nurse Practitioner Family
PROC: 05PYX3Z Removal of Infusion Device from Upper Vein, External Approach (ICD-10-PCS; principal; 2017-09-25)
PROC: 06HY33Z Insertion of Infusion Device into Lower Vein, Percutaneous Approach (ICD-10-PCS; 2017-10-02)
PROC: 30233N1 Transfusion of Nonautologous Red Blood Cells into Peripheral Vein, Percutaneous Approach (ICD-10-PCS; 2017-10-02)
PROC: 5A1D70Z Performance of Urinary Filtration, Intermittent, Less than 6 Hours Per Day (ICD-10-PCS; 2017-10-04)
PROC: 06HY33Z Insertion of Infusion Device into Lower Vein, Percutaneous Approach (ICD-10-PCS; 2017-10-07)
DX: T80.211A Bloodstream infection due to central venous catheter, initial encounter (principal); A41.9 Sepsis, unspecified organism; N18.6 End stage renal disease; I50.33 Acute on chronic diastolic (congestive) heart failure; A41.02 Sepsis due to Methicillin resistant Staphylococcus aureus; R65.20 Severe sepsis without septic shock; N17.9 Acute kidney failure, unspecified; E87.1 Hypo-osmolality and hyponatremia; I12.0 Hypertensive chronic kidney disease with stage 5 chronic kidney disease or end stage renal disease; I31.3 Pericardial effusion (noninflammatory); I82.C11 Acute embolism and thrombosis of right internal jugular vein; J98.11 Atelectasis; N39.0 Urinary tract infection, site not specified; F17.210 Nicotine dependence, cigarettes, uncomplicated; Z89.411 Acquired absence of right great toe; D64.9 Anemia, unspecified; Z85.118 Personal history of other malignant neoplasm of bronchus and lung; Z89.512 Acquired absence of left leg below knee; E11.40 Type 2 diabetes mellitus with diabetic neuropathy, unspecified; I44.0 Atrioventricular block, first degree; Z79.4 Long term (current) use of insulin; E11.65 Type 2 diabetes mellitus with hyperglycemia; E87.5 Hyperkalemia; E11.21 Type 2 diabetes mellitus with diabetic nephropathy; I73.9 Peripheral vascular disease, unspecified; E87.8 Other disorders of electrolyte and fluid balance, not elsewhere classified; E11.22 Type 2 diabetes mellitus with diabetic chronic kidney disease; D63.1 Anemia in chronic kidney disease; R68.0 Hypothermia, not associated with low environmental temperature; E11.649 Type 2 diabetes mellitus with hypoglycemia without coma; Z99.2 Dependence on renal dialysis; R51 Headache; B96.1 Klebsiella pneumoniae [K. pneumoniae] as the cause of diseases classified elsewhere; G62.9 Polyneuropathy, unspecified
CPT/HCPCS: 36415; 36430; 70470-TC; 70491-TC; 70492-TC; 71045-TC-FY; 80048; 80053; 80061; 81003; 81015; 82009; 82550; 82553; 82728; 82947; 82962; 83036; 83540; 83550; 83721; 83735; 84100; 85025; 85027; 85610; 85730; 86704; 86706; 86708; 86850; 86900; 86901; 86922; 87040; 87070; 87086; 87186; 87205; 87340; 93005; 93010; 93306-TC; 93312; 93325; 93971; 94640; 97161-GP; 99283-25; G0480; J0878; J0885; J1644; J7620; P9038; P9058

== ENCOUNTER 2019-04-06 16:11 | Inpatient (IN) | payer OTHER ==
--- NOTE | 2019-04-06 17:18 | PDOC ---
History of Present Illness - General Chief Complaint: Wound Stated Complaint: LEG PAIN Time Seen by Provider: 04/06/19 16:56 - History of Present Illness Initial Comments: Patient is a 61 y/o male with PMH including DM, HTN, ESRD (//Sat), left BKA, neuropathy, presenting today with non-healing right foot wound. Reports that around 6 weeks ago he injured his right foot while exiting the elevator. Reports that the wound turned foul smelling 6 days ago which prompted him to come in. Reports bloody and purulent discharge from the right foot. Reports swelling of the right foot. Denies subjective fever. Denies chills. Reports that he has chronic generalized pain over his right leg and foot. Denies chest pain/shortness of breath. Denies abdominal pain. Denies urinary symptoms or changes in stool. Past History - Past Medical History Allergies/Adverse Reactions: Allergies Allergy/AdvReac Type Severity Reaction Status Date / Time shellfish derived Allergy Severe "HIVES" Verified 03/18/17 14:03 No Known Drug Allergies Allergy Verified 03/18/17 14:03 Home Medications: Ambulatory Orders Ergocalciferol (Vitamin D2) [Vitamin D2] 50,000 unit PO WEEKLY 03/18/17 Albuterol 0.083% Nebulizer Coretta [Ventolin 0.083% Nebulizer Soln -] 1 amp NEB Q4H PRN #120 amp 08/23/17 Amlodipine Besylate [Norvasc -] 10 mg PO DAILY #30 tablet 08/23/17 Ascorbate Calcium [Vitamin C] 500 mg PO DAILY #30 tablet 08/23/17 Duloxetine HCl 30 mg PO DAILY #30 capsule.dr 08/23/17 Fluticasone Prop 0.05% Nasal [Flonase -] 1 - 2 spray NS DAILY #1 spray.pump Folic Acid - 1 mg PO DAILY #30 tablet 08/23/17 Furosemide [Lasix] 80 mg PO DAILY #30 tablet 08/23/17 Mirtazapine [Remeron -] 30 mg PO HS #30 tablet 08/23/17 Sodium Bicarbonate 325 gr PO BID 09/24/17 Acetaminophen [Tylenol .Regular Strength -] 650 mg PO Q6H PRN tablet 10/06/17 Albuterol 2.5/Ipratropium 0.5 [Duoneb -] 1 amp NEB RQID amp 10/06/17 Daptomycin [Cubicin (Restricted To Id) -] 500 mg IVPB MoWeFr@1000 vial Doxazosin Mesylate [Cardura -] 4 mg PO DAILY tablet 10/06/17 Gabapentin [Neurontin -] 100 mg PO BID capsule 10/06/17 Heparin - 1,000 unit IVPUSH PRN PRN vial 10/06/17 Heparin - 5,000 unit IVPUSH PRN PRN vial 10/06/17 Insulin (Levemir) [Levemir Vial] 10 units SQ DAILY@0700 units 10/06/17 Insulin Sliding Scale [Novolog Vial Sliding Scale -] 1 vial SQ ACHS units 10/06 Lidocaine 5% Patch [Lidoderm -] 1 patch TP DAILY patch 10/06/17 Lidocaine Patch Removal [Lidoderm Patch Removal] 1 each MC DAILY@2200 each 02/13 Metoprolol Tartrate [Lopressor -] 50 mg PO BID tablet 10/06/17 Sevelamer Carbonate [Renvela -] 1,600 mg PO TIDCM tab 10/06/17 oxyCODONE HCL [Roxicodone -] 10 mg PO Q4H PRN #10 tablet MDD 6 10/06/17 traZODone HCL [Desyrel -] 300 mg PO HS tablet 10/06/17 Anemia: Yes COPD: Yes CHF: No Diabetes: Yes Dialysis: Yes HTN: Yes Thyroid Disease: No Lung CA: Yes (depression) - Surgical History Abdominal Surgery: Yes (HERNIA) Orthopedic Surgery: Yes (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, rt gr toe amputation) - Immunization History Immunization Up to Date: Yes - Psycho Social/Smoking Cessation Hx Smoking Status: No Smoking History: Former smoker Have you smoked in the past 12 months: Yes Number of Cigarettes Smoked Daily: 1 If you are a former smoker, when did you quit?: FEB 2019 Cigars Per Day: 1 Information on smoking cessation initiated: Yes 'Breaking Loose' booklet given: 09/24/17 Hx Alcohol Use: No Drug/Substance Use Hx: No Substance Use Type: None Hx Substance Use Treatment: No Review of Systems - Review of Systems Comments:: GENERAL/CONSTITUTIONAL: Denies subjective fever or chills. No weakness._ HEAD, EYES, EARS, NOSE AND THROAT: No change in vision. No change in hearing. No sore throat._ CARDIOVASCULAR: No chest pain or shortness of breath_ RESPIRATORY: Denies cough, hemoptysis_ GASTROINTESTINAL: No nausea, vomiting, diarrhea or constipation._ GENITOURINARY: No dysuria, frequency, or change in urination._ MUSCULOSKELETAL: Reports purulent and blood discharge from non-healing wound on right foot. No neck or back pain._ SKIN: No rash_ NEUROLOGIC: No headache, vertigo, loss of consciousness, or change in strength/ sensation._ ENDOCRINE: No increased thirst. No abnormal weight change_ HEMATOLOGIC/LYMPHATIC: No anemia, easy bleeding, or history of blood clots._ ALLERGIC/IMMUNOLOGIC: No hives or skin allergy._ *Physical Exam - Vital Signs Last Vital Signs Temp Pulse Resp BP Pulse Ox 100.4 F H 91 H 18 116/60 98 04/06/19 16:25 04/06/19 16:25 04/06/19 16:25 04/06/19 16:25 04/06/19 16:25 - Physical Exam GENERAL: Awake, alert, and oriented to person/place/time, in no acute distress_ HEAD: No signs of trauma, normocephalic, atraumatic _ EYES: PERRLA, EOMI, sclera anicteric, conjunctiva clear_ ENT: Hearing grossly normal, nares patent, oropharynx clear without exudates. No uvular deviation. Moist mucosa_ NECK: Normal ROM, supple, no lymphadenopathy, JVD, or masses_ LUNGS: No distress, speaks in full sentences, clear to auscultation bilaterally _ HEART: Regular rate and rhythm, normal S1 and S2, no murmurs appreciated, peripheral pulses normal and equal bilaterally._ ABDOMEN: Soft, nontender, normoactive bowel sounds. No guarding, no rebound. No masses_ EXTREMITIES: LLE BKA. RLE 3+ pitting edema. No erythema or ecchymosis. Diffusely tender throughout lower leg. Non-healing wound 2cm over right great and second toes with partial amputation of right toes. Bloody and purulent discharge from wound. Foul- smelling wound. 1+ DP/PT. NEUROLOGICAL: Cranial nerves II through XII grossly intact. Normal speech, no focal sensorimotor deficits _ SKIN: Warm, Dry, normal turgor, no rashes or lesions noted_ ED Treatment Course - LABORATORY CBC & Chemistry Diagram: 04/06/19 17:46 04/06/19 17:45 Medical Decision Making - Medical Decision Making 04/06/19 17:18 63M hx including DM and neuropathy presenting today with foul-smelling non- healing wound on right foot with bloody and purulent discharge. 100.4 fever in the ED. Will start sepsis work up and XR of the right foot and ankle. Will give abx vanc and zosyn. 04/06/19 18:[address] Aniyah Chaudhry. 04/06/19 19:04 D/w the hospitalist who accepts the patient for admission. 04/06/19 19:05 Patient signed out to Dr. May. Discharge - Discharge Information Problems reviewed: Yes Clinical Impression/Diagnosis: Foot infection Condition: Guarded - Admission Yes - Follow up/Referral - Patient Discharge Instructions - Post Discharge Activity
[2019-04-06] MEDS ORDERED: SODIUM CHLORIDE IV ONE (17:38)
--- NOTE | 2019-04-06 17:44 | PDOC ---
Documentation entered by Rosemary Sanchez SCRIBE, acting as scribe for Emily Pennington MD. Emily Pennington MD: This documentation has been prepared by the Laura shelton Nirvannie, SCRIBE, under my direction and personally reviewed by me in its entirety. I confirm that the documentation accurately reflects all work, treatment, procedures, and medical decision making performed by me. Attending Attestation - Resident Resident Name: Hunter Robins - ED Attending Attestation I have performed the following: I have examined & evaluated the patient, The case was reviewed & discussed with the resident, I agree w/resident's findings & plan - HPI HPI: 04/06/19 17:39 63-year-old male presents with a foul-smelling purulent open wound on his right foot. HPI about 3 weeks ago he says he hit it and then about 6 days ago he became aware that it was infected 04/06/19 17:42 - Physicial Exam PE: 04/06/19 Tall thin 63-year-old conversant male presents with foul-smelling foot wound on the right foot Head normocephalic atraumatic Neck supple Lungs no wheezing or crackles CVS regular rate rhythm S1-S2 Abdomen flat, nontender No flank pain Extremities there is a AV fistula on the left arm that has a bruit and thrill He has a left BKA and prosthesis in place Skin warm and dry Neuro alert and oriented x3 - Medical Decision Making 04/06/19 17:53 IMP infected foot wound Patient needs to be admitted for IV antibiotics MedSurg admission and surgery consultation 04/06/19 18:22 Patient's temperature 100.4 CBC shows a leukocytosis of 20,000 WBCs and an anemia with hemoglobin 7.5, he has a longstanding history of anemia associated with his end-stage renal disease 04/06/19 18:53 Potassium is 4.9, glucose is greater than 500
[2019-04-06 18:09] LABS: BASO % 0.3 % (0-2.0); HEMATOCRIT 24.7 % (35.4-49); HEMOGLOBIN 7.6 GM/dL (11.7-16.9); LYMPH % 3.1 % (8-40); MCH 26.8 pg (25.7-33.7); MCHC 30.7 g/dl (32.0-35.9); MEAN CELL VOLUME 87.5 fl (80-96); MEAN PLT VOLUME 8.8 fl (7.5-11.1); NEUT % 90.6 % (42.8-82.8); PLATELET COUNT 371 K/MM3 (134-434); RBC 2.83 M/mm3 (4.00-5.60); RDW 17.8 % (11.9-15.9); WHITE BLOOD COUNT 20.1 K/mm3 (4.0-10.0)
[2019-04-06] MEDS ORDERED: ACETAMINOPHEN 1000 MG/100 ML VIAL (NON FORMULARY) IVPB ONE (18:25)
[2019-04-06] MEDS ORDERED: PIPERACILLIN/TAZOB 3.375 GM 3.375 GM in DEXTROSE 5%-WATER - 50 ML IVPB ONE (18:25)
[2019-04-06] MEDS ORDERED: VANCOMYCIN 1,000 MG in DEXTROSE 5%-WATER - 250 ML IVPB ONE (18:25)
[2019-04-06 18:32] LABS: BILIRUBIN,TOTAL 0.6 mg/dL (0.2-1); BLOOD UREA NITROGEN 61.7 mg/dL (7-18); CREATININE 6.9 mg/dL (0.55-1.3); POTASSIUM 4.9 mmol/L (3.5-5.1)
[2019-04-06] MEDS ORDERED: ACETAMINOPHEN INJECTION 100 ML IVPB ONE (18:45)
[2019-04-06] MEDS ORDERED: PIPERACILLIN/TAZOB 3.375 GM 3.375 GM/50 ML BAG IVPB ONE (18:46)
[2019-04-06] MEDS ORDERED: VANCOMYCIN 1 GRAM (PRE-DOCKED) 1,000 MG/250 ML BAG IVPB ONE (19:04)
--- NOTE | 2019-04-06 19:09 | PDOC ---
*Physical Exam - Vital Signs Last Vital Signs Temp Pulse Resp BP Pulse Ox 100.4 F H 91 H 18 116/60 98 04/06/19 16:25 04/06/19 16:25 04/06/19 16:25 04/06/19 16:25 04/06/19 16:25 ED Treatment Course - LABORATORY CBC & Chemistry Diagram: 04/06/19 17:46 04/06/19 17:45 - ADDITIONAL ORDERS Additional order review: Laboratory Results 04/06/19 17:45 Sodium 127 L Potassium 4.9 Chloride 95 L Carbon Dioxide 19 L Anion Gap 13 BUN 61.7 H Creatinine 6.9 H Est GFR (CKD-EPI)AfAm 8.95 Est GFR (CKD-EPI)NonAf 7.72 Random Glucose 546 H* Calcium 8.0 L Total Bilirubin 0.6 AST 11 L ALT 10 L Alkaline Phosphatase 130 H Total Protein 6.0 L Albumin 2.0 L 04/06/19 17:46 RBC 2.83 L MCV 87.5 MCHC 30.7 L RDW 17.8 H MPV 8.8 D Neutrophils % 90.6 H Lymphocytes % 3.1 L D Monocytes % 6.0 Eosinophils % 0.0 D Basophils % 0.3 - Medications Given in the ED: ED Medications Discontinued Medications Generic Name Dose Route Start Last Admin Trade Name Freq PRN Reason Stop Dose Admin Acetaminophen 1,000 mg 04/06/19 18:25 04/06/19 18:55 Ofirmev Injection - IVPB 04/06/19 18:26 1,000 mg ONCE ONE Administration Sodium Chloride 2,370 mls @ 1,185 mls/hr 04/06/19 17:38 04/06/19 18:55 Normal Saline - 30 ml/kg infuse over 2 hr (2370 ml) 04/06/19 19:37 Not Given IV ONCE ONE Piperacillin Sod/Tazobactam 50 mls @ 100 mls/hr 04/06/19 18:25 04/06/19 18:56 Sod 3.375 gm/ Dextrose IVPB 04/06/19 18:54 100 mls/hr ONCE ONE Administration Protocol Medical Decision Making - Medical Decision Making 04/06/19 19:09 Received signout from day team Anemic Hgb 7.6 Hyponatremia Na 127 - withholding fluids d/t ESRD Hyperglycemia BG 546 - pt hasnt taken insulin in long time, currently not nauseous/vomiting EKG shows NSR, HR 85, QTc 445, no ST changes --- 63M hx ESRD (dialysis T, , ), DM, HTN, Left BKA, neuropathy non compliant on meds presenting with foul-smelling non-healing wound on right foot with bloody and purulent discharge. 100.4 fever in the ED. Given tylenol for fever, vanc, zosyn. Withheld sepsis fluids d/t CKD on dialysis. Pending R ankle/foot XR - rule out osteomyelitis or nec fasc Admitted pt to m/s Dr Onofre for R foot cellulitis, hyperglycemia, hyponatremia, anemia Discharge - Discharge Information Problems reviewed: Yes Clinical Impression/Diagnosis: Cellulitis of right foot, Hyperglycemia, ESRD (end stage renal disease) on dialysis Anemia Qualifiers: Anemia type: unspecified type Qualified Code(s): D64.9 - Anemia, unspecified Condition: Stable - Follow up/Referral - Patient Discharge Instructions - Post Discharge Activity
[2019-04-06 20:30] LABS: ANISOCYTOSIS 1+
--- NOTE | 2019-04-06 20:45 | HP ---
Admitting History and Physical - Primary Care Physician PCP: Juve Riggs ([facility]) - Admission Chief Complaint: Right Foot Wound, Swelling and Pain History of Present Illness: This is a 61 y/o man with a PMHx of DM, HTN, ESRD (//Sat), left BKA, Neuropathy. Who presents to the ED with a non-healing right foot wound. Patient reports that around 6 weeks ago he injured his right foot while exiting the elevator. He reports that the wound became foul smelling with discharge 6 days ago which prompted him to come in to the ED for evaluation. Patient reports bloody and purulent discharge from the right foot. Patient reports swelling of the right foot. Patient reports that he has chronic generalized pain over his right leg and foot. Patient denies fever, chills, shortness of breath, chest pain, palpitations, AP, N/V/ constipation. History Source: Patient Limitations to Obtaining History: No Limitations - Past Medical History [employer] ENG[employer]: Yes: Peripheral Neuropathy Cardiovascular: Yes: HTN Gastrointestinal: Yes: GERD Renal/: Yes: Renal Failure, Renal Inusuff, Hemodialysis Heme/Onc: Yes: Anemia Infectious Disease: Yes: Other (osteomyelitis) Psych: Yes: Depression Musculoskeletal: Yes: Other (chronic pain) Rheumatology: Yes: Other (history of osteomyelitis) Endocrine: Yes: Diabetes Mellitus - Past Surgical History Past Surgical History: Yes: Amputation (transmetatarsal of Left foot) - Smoking History Smoking history: Former smoker Have you smoked in the past 12 months: Yes Aproximately how many cigarettes per day: 1 If you are a former smoker, when did you quit?: FEB 2019 - Alcohol/Substance Use Hx Alcohol Use: No Number of Drinks Daily: 2 (weekends) History of Substance Use: reports: None - Social History Usual Living Arrangement: Yes: Assisted Living ADL: Support Services History of Recent Travel: No Home Medications - Allergies Allergies/Adverse Reactions: Allergies Allergy/AdvReac Type Severity Reaction Status Date / Time shellfish derived Allergy Severe "HIVES" Verified 03/18/17 14:03 No Known Drug Allergies Allergy Verified 03/18/17 14:03 - Home Medications Home Medications: Ambulatory Orders Albuterol 0.083% Nebulizer Coretta [Ventolin 0.083% Nebulizer Soln -] 1 amp NEB Q4H PRN #120 amp 08/23/17 Fluticasone Prop 0.05% Nasal [Flonase -] 1 - 2 spray NS DAILY #1 spray.pump Doxazosin Mesylate [Cardura -] 4 mg PO DAILY tablet 10/06/17 Gabapentin [Neurontin -] 100 mg PO BID capsule 10/06/17 Insulin Sliding Scale [Novolog Vial Sliding Scale -] 1 vial SQ ACHS units 10/06 Lidocaine 5% Patch [Lidoderm -] 1 patch TP DAILY patch 10/06/17 Lidocaine Patch Removal [Lidoderm Patch Removal] 1 each MC DAILY@2200 each 02/13 Insulin (Levemir) [Levemir Vial] 12 unit SQ DAILY@0700 04/07/19 Nifedipine ER [Procardia XL -] 90 mg PO DAILY 04/07/19 traZODone HCL [Desyrel -] 450 mg PO HS 04/07/19 Home Medications (free text): from [email or web address] List: Levemir 12 units SQ AM. Novolog Flex Pen SQ TIDCM. Sliding Scale protocol. Ventolin HFA 2 puffs INH Q4h prn. Doxazosin 4mg po QD. Procardia XL 90mg po QD. Neurontin 100mg po BID. Trazadone 150mg po HS. Methadone 2.5mg po TID. Artifical Tears 1gtt OU Q6h prn. Flovent HFA 220mcg 2 puffs INH Q12H. Flonase 50mcg 1 spray each nare QD. ammonium Lact, Cream 12% top affected area daily Family Medical History Family History: Unable to Obtain Review of Systems - Review of Systems Constitutional: reports: No Symptoms Eyes: reports: No Symptoms HENT: reports: No Symptoms Neck: reports: No Symptoms Cardiovascular: reports: No Symptoms Respiratory: reports: No Symptoms Gastrointestinal: reports: Diarrhea Genitourinary: reports: No Symptoms Breasts: reports: No Symptoms Reported Musculoskeletal: reports: Extremity Pain, Joint Swelling Integumentary: reports: Wound Neurological: reports: No Symptoms Endocrine: reports: No Symptoms Hematology/Lymphatic: reports: No Symptoms Psychiatric: reports: No Symptoms Pain Intensity: 5 Physical Examination Vital Signs: Vital Signs Temperature 100.4 F H 04/06/19 16:25 Pulse Rate 91 H 04/06/19 16:25 Respiratory Rate 18 04/06/19 16:25 Blood Pressure 116/60 04/06/19 16:25 O2 Sat by Pulse Oximetry (%) 98 04/06/19 16:25 Constitutional: Yes: No Distress, Calm, Thin Eyes: Yes: WNL, Conjunctiva Clear, EOM Intact, PERRL HENT: Yes: WNL, Atraumatic, Normocephalic Neck: Yes: WNL, Supple, Trachea Midline Cardiovascular: Yes: WNL, Regular Rate and Rhythm, S1, S2 Respiratory: Yes: Cough, Diminished, Rhonchi. No: SOB, SOB on Exertion Gastrointestinal: Yes: Normal Bowel Sounds, Soft ...Rectal Exam: Yes: Deferred Renal/: Yes: WNL Breast(s): Yes: WNL Extremities: Yes: Amputation (L-BKA), Other ( No erythema or ecchymosis. Diffusely tender throughout lower leg. Non-healing wound 2cm over right great and second toes with partial amputation of right toes. Bloody and purulent discharge from wound. Foul-smelling wound. 1+ DP/PT LUE- AV Fistula +thrill/ bruit) Edema: Yes Edema: RLE: 2+ Peripheral Pulses WNL: Yes Wound/Incision: Yes: Dressing Dry and Intact Neurological: Yes: Alert, Oriented, Cran Nerves II-XII Intact ...Motor Strength: WNL Psychiatric: Yes: WNL, Alert, Oriented Labs: CBC, BMP 04/06/19 17:46 04/06/19 17:45 Laboratory Results - last 24 hr 04/06/19 04/06/19 04/06/19 17:45 17:46 22:24 WBC 20.1 H RBC 2.83 L Hgb 7.6 L Hct 24.7 L D MCV 87.5 MCH 26.8 D MCHC 30.7 L RDW 17.8 H Plt Count 371 D MPV 8.8 D Absolute Neuts (auto) 18.2 H Neutrophils % 90.6 H Neutrophils % (Manual) 75.0 Band Neutrophils % 10.0 Lymphocytes % 3.1 L D Lymphocytes % (Manual) 6.0 L D Monocytes % 6.0 Monocytes % (Manual) 5 Eosinophils % 0.0 D Eosinophils % (Manual) 0.0 Basophils % 0.3 Basophils % (Manual) 0.0 Nucleated RBC % 0 Hypochromia 1+ Anisocytosis 1+ VBG pH 7.38 POC VBG pCO2 30.6 L POC VBG pO2 59.4 H VBG HCO3 17.8 L VBG O2 Sat (Javon) 88.1 H VBG Base Excess -6.0 L Sodium 127 L Potassium 4.9 Chloride 95 L Carbon Dioxide 19 L Anion Gap 13 BUN 61.7 H Creatinine 6.9 H Est GFR (CKD-EPI)AfAm 8.95 Est GFR (CKD-EPI)NonAf 7.72 POC Glucometer Random Glucose 546 H* Lactic Acid Calcium 8.0 L Total Bilirubin 0.6 AST 11 L ALT 10 L Alkaline Phosphatase 130 H Creatine Kinase Troponin I Total Protein 6.0 L Albumin 2.0 L 04/06/19 04/06/19 04/06/19 22:49 23:00 23:00 WBC RBC Hgb Hct MCV MCH MCHC RDW Plt Count MPV Absolute Neuts (auto) Neutrophils % Neutrophils % (Manual) Band Neutrophils % Lymphocytes % Lymphocytes % (Manual) Monocytes % Monocytes % (Manual) Eosinophils % Eosinophils % (Manual) Basophils % Basophils % (Manual) Nucleated RBC % Hypochromia Anisocytosis VBG pH POC VBG pCO2 POC VBG pO2 VBG HCO3 VBG O2 Sat (Javon) VBG Base Excess Sodium Potassium Chloride Carbon Dioxide Anion Gap BUN Creatinine Est GFR (CKD-EPI)AfAm Est GFR (CKD-EPI)NonAf POC Glucometer 565 Random Glucose Lactic Acid 0.9 Calcium Total Bilirubin AST ALT Alkaline Phosphatase Creatine Kinase 26 Troponin I < 0.02 Total Protein Albumin Intake & Output 04/04/19 04/05/19 04/06/19 04/07/19 23:59 23:59 23:59 23:59 Weight 79 kg Current Medications Generic Name Dose Route Start Last Admin Trade Name Freq PRN Reason Stop Dose Admin Albuterol Sulfate 1 amp 04/06/19 22:12 Ventolin 0.083% Nebulizer Soln - NEB Q4H PRN SHORT OF BREATH/WHEEZING Doxazosin Mesylate 4 mg 04/07/19 10:00 Cardura - PO DAILY IGGY Fluticasone Propionate 1 spray 04/07/19 10:00 Flonase - NS DAILY IGGY Gabapentin 100 mg 04/06/19 22:15 04/06/19 23:00 Neurontin - PO 100 mg BID IGGY Administration Insulin Aspart 1 vial 04/07/19 07:00 Novolog Vial Sliding Scale - SQ ACHS [facility] Protocol Insulin Detemir 12 units 04/07/19 07:00 Levemir Vial SQ DAILY@0700 [facility] Methadone HCl 2.5 mg 04/06/19 22:30 04/06/19 23:00 Dolophine - PO 2.5 mg TID IGGY Administration Nifedipine 90 mg 04/07/19 10:00 Procardia Xl - PO DAILY IGGY Trazodone HCl 400 mg/ 450 mg 04/07/19 22:00 Trazodone HCl 50 mg PO HS IGGY Imaging - Results Chest X-ray: Image Reviewed X-ray: Image Reviewed Problem List - Problems (1) Cellulitis of right foot Assessment/Plan: Wound Culture-pending Blood Cultures-pending WBC 20.1 with L- shift Lactic Acid 0.9 T max 100.4 Started on Zosyn, will continue renal dosing- defer to ID/Nephro Appreciate Vascular consult Appreciate ID consult Monitor CBC Monitor vitals Wound care Elevate extremity Code(s): L03.115 - CELLULITIS OF RIGHT LOWER LIMB (2) Type 2 diabetes mellitus with foot ulcer Assessment/Plan: see above Code(s): E11.621 - TYPE 2 DIABETES MELLITUS WITH FOOT ULCER; L97.509 - NON- PRESSURE CHRONIC ULCER OTH PRT UNSP FOOT W UNSP SEVERITY (3) ESRD (end stage renal disease) on dialysis Assessment/Plan: HD- T,Th,Sat Appreciate Nephrology consult for HD management Avoid Nephrotoxic drugs Monitor BMP Code(s): N18.6 - END STAGE RENAL DISEASE; Z99.2 - DEPENDENCE ON RENAL DIALYSIS (4) Acute on chronic diastolic heart failure Assessment/Plan: stable Continue home meds Chest Xray- reviewed Code(s): I50.33 - ACUTE ON CHRONIC DIASTOLIC (CONGESTIVE) HEART FAILURE (5) Uncontrolled diabetes mellitus Assessment/Plan: Appreciate Endocrinology consult BGMs ISS HgbA1c in am Monitor BMP Code(s): E11.65 - TYPE 2 DIABETES MELLITUS WITH HYPERGLYCEMIA (6) Peripheral vascular disease due to secondary diabetes Assessment/Plan: Chronic Continue home meds Neurovascular checks Code(s): E13.51 - OTH DIABETES W DIABETIC PERIPHERAL ANGIOPATHY W/O GANGRENE (7) COPD with emphysema Assessment/Plan: Stable No acute flare Continue home meds Albuterol neb Chest Xray- reviewed Code(s): J43.9 - EMPHYSEMA, UNSPECIFIED (8) GERD (gastroesophageal reflux disease) Assessment/Plan: stable Continue PPI Code(s): K21.9 - GASTRO-ESOPHAGEAL REFLUX DISEASE WITHOUT ESOPHAGITIS (9) HTN (hypertension) Assessment/Plan: stable Monitor BP Continue Procardia, Doxazosin Monitor renal function Code(s): I10 - ESSENTIAL (PRIMARY) HYPERTENSION Qualifiers: Hypertension type: essential hypertension Qualified Code(s): I10 - Essential (primary) hypertension (10) Osteoarthritis Assessment/Plan: stable Continue home med Code(s): M19.90 - UNSPECIFIED OSTEOARTHRITIS, UNSPECIFIED SITE Qualifiers: Laterality: bilateral (11) PTSD (post-traumatic stress disorder) Assessment/Plan: Continue home med Code(s): F43.10 - POST-TRAUMATIC STRESS DISORDER, UNSPECIFIED (12) S/P amputation Assessment/Plan: uses prosthesis Code(s): Z89.9 - ACQUIRED ABSENCE OF LIMB, UNSPECIFIED Assessment/Plan This is a 61 y/o man with a PMHx of DM, HTN, ESRD (//Sat), left BKA, Neuropathy. Admitted for Non Healing Diabetic Wound, Uncontrolled DM, ESRD for further evaluation of their emergent condition. Plan: See Problem List FEN Fluid Restriction 1L Replete lytes prn Renal, Diabetic Diet DVT ppx OOB SCD to R- leg only Heparin SQ Dispo: Requires Inpatient Care Visit type - Emergency Visit Emergency Visit: Yes ED Registration Date: 04/06/19 Care time: The patient presented to the Emergency Department on the above date and was hospitalized for further evaluation of their emergent condition. - New Patient This patient is new to me today: Yes Date on this admission: 04/06/19 - Critical Care Critical Care patient: No
[2019-04-06] MEDS ORDERED: ALBUTEROL SO4 0.083% IH SOL 2.5 MG/3 ML VIAL.NEB. NEB PRN (22:12)
[2019-04-06] MEDS: GABAPENTIN 100 MG CAPSULE (FP) PO SCH (23:00)
[2019-04-06] MEDS: METHADONE HCL 5 MG TABLET PO SCH (23:00)
[2019-04-06] MEDS ORDERED: GABAPENTIN 100 MG CAPSULE (FP) ONE (23:07)
[2019-04-06] MEDS ORDERED: METHADONE HCL 5 MG TABLET ONE (23:07)
[2019-04-06 23:31] LABS: VENOUS PC02 30.6 mmHg (38-52); VENOUS PH 7.38 (7.31-7.41); VENOUS PO2 59.4 mmHg (28-48)
[2019-04-06] MEDS ORDERED: INSULIN (NOVOLOG) ASPART 100 UNITS/ML 10ML VIAL SQ ONE (23:32)
[2019-04-07] MEDS ORDERED: LIDOCAINE HCL 1%, 10 MG/ML (20ML VIAL) INF ONE
[2019-04-07 06:24] LABS: BASO % 0.4 % (0-2.0); EOS % 0.5 % (0-4.5); HEMATOCRIT 27.3 % (35.4-49); HEMOGLOBIN 8.6 GM/dL (11.7-16.9); LYMPH % 3.7 % (8-40); MCH 27.4 pg (25.7-33.7); MCHC 31.6 g/dl (32.0-35.9); MEAN CELL VOLUME 86.5 fl (80-96); MEAN PLT VOLUME 8.1 fl (7.5-11.1); MONO % 5.3 % (3.8-10.2); NEUT % 90.1 % (42.8-82.8); PLATELET COUNT 385 K/MM3 (134-434); RBC 3.15 M/mm3 (4.00-5.60); RDW 17.6 % (11.9-15.9); WHITE BLOOD COUNT 17.8 K/mm3 (4.0-10.0)
[2019-04-07 06:47] LABS: BLOOD UREA NITROGEN 63.4 mg/dL (7-18); CALCIUM 8.3 mg/dL (8.5-10.1); CREATININE 7.3 mg/dL (0.55-1.3); POTASSIUM 4.8 mmol/L (3.5-5.1)
[2019-04-07] MEDS ORDERED: INSULIN (LEVEMIR) 100 UNITS/ML UNITS SQ SCH (07:00)
[2019-04-07] MEDS ORDERED: INSULIN (LEVEMIR) 100 UNITS/ML UNITS SQ ONE (07:40)
[2019-04-07] MEDS ORDERED: METHADONE HCL 5 MG TABLET ONE (07:40)
[2019-04-07] MEDS: METHADONE HCL 5 MG TABLET PO SCH ×2 (08:03→22:58)
[2019-04-07] MEDS: INSULIN SLIDING SCALE (NOVOLOG) 1 VIAL SQ SCH ×3 (08:03→23:28)
--- NOTE | 2019-04-07 09:07 | EKG ---
Test Reason : Blood Pressure : / mmHG Vent. 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
[2019-04-07] MEDS ORDERED: PIPERACILLIN/TAZOB 2.25 GM 2.25 GM in DEXTROSE 5%-WATER - 50 ML IVPB ONE ×2 (09:29→21:30)
[2019-04-07] MEDS ORDERED: SODIUM CHLORIDE 250 ML IV PRN ×2 (09:58→18:49)
[2019-04-07] MEDS ORDERED: EPOETIN ALFA 20,000 UNIT/1 ML VIAL IVPUSH ONE (10:00)
[2019-04-07] MEDS ORDERED: VANCOMYCIN 1 GRAM (PRE-DOCKED) 1,000 MG/250 ML BAG IVPB ONE ×3 (10:00→22:00)
[2019-04-07] MEDS ORDERED: NIFEdipine E.R. 90 MG TABLET (FP) PO SCH (10:00)
[2019-04-07] MEDS ORDERED: FLUTICASONE PROP 0.05% 16 GM NASAL SPRAY NS SCH (10:00)
[2019-04-07] MEDS ORDERED: DOXAZOSIN MESYLATE 4 MG TABLET PO SCH (10:00)
--- NOTE | 2019-04-07 10:38 | CONSULT ---
- Consultation REQUESTING PROVIDER: CONSULT REQUEST: We have been asked to surgically evaluate this patient for Right foot infection. PCP:Vannessa Fontana MD HISTORY OF PRESENT ILLNESS: 61 y/o M w/ PMHx IDDM, HTN, ESRD (//Sat), left BKA (diabetic foot infection), Neuropathy now presenting to ED with right foot infection. Pt reports he bumped his foot while exiting an elevator approximately 6 weeks ago. Reports noting an ulcer over this 4th toe a week after the initial injury. Pt was seen by his PCP who urged him to go to the ER, but did not come for evaluation. States he has been caring for the ulcer at home with NS irrigation and applying Bacitracin ointment. Ulcer has significantly worsened over the past week. Endorses chills and subjective fevers. Denies n/v/d, cp/sob. Reports blood purulent drainage from his foot wound. At baseline pt ambulates with use of prosthesis on LLE without issue. Denies any ulcerations to L BKA stump or issues with prosthesis. 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: Peripheral Neuropathy Cardiovascular: Yes: HTN Gastrointestinal: Yes: GERD Renal/: Yes: Renal Failure, Renal Inusuff, Hemodialysis Heme/Onc: Yes: Anemia Infectious Disease: Yes: Other (osteomyelitis) Psych: Yes: Depression Musculoskeletal: Yes: Other (chronic pain) Rheumatology: Yes: Other (history of osteomyelitis) Endocrine: Yes: Diabetes Mellitus - Past Surgical History Past Surgical History: Yes: Amputation L BKA October 2016 Home Medications Medication Instructions Recorded Ergocalciferol (Vitamin D2) 50,000 unit PO WEEKLY 03/18/17 [Vitamin D2] Albuterol 0.083% Nebulizer Coretta 1 amp NEB Q4H PRN #120 amp 08/23/17 [Ventolin 0.083% Nebulizer Soln -] Amlodipine Besylate [Norvasc -] 10 mg PO DAILY #30 tablet 08/23/17 Ascorbate Calcium [Vitamin C] 500 mg PO DAILY #30 tablet 08/23/17 Duloxetine HCl 30 mg PO DAILY #30 capsule. 08/23/17 Fluticasone Prop 0.05% Nasal 1 - 2 spray NS DAILY #1 spray.pump 08/23/17 [Flonase -] Folic Acid - 1 mg PO DAILY #30 tablet 08/23/17 Furosemide [Lasix] 80 mg PO DAILY #30 tablet 08/23/17 Mirtazapine [Remeron -] 30 mg PO HS #30 tablet 08/23/17 Sodium Bicarbonate 325 gr PO BID 09/24/17 Acetaminophen [Tylenol .Regular 650 mg PO Q6H PRN tablet 10/06/17 Strength -] Albuterol 2.5/Ipratropium 0.5 1 amp NEB RQID amp 10/06/17 [Duoneb -] Daptomycin [Cubicin (Restricted 500 mg IVPB MoWeFr@1000 vial 10/06/17 To Id) -] Doxazosin Mesylate [Cardura -] 4 mg PO DAILY tablet 10/06/17 Gabapentin [Neurontin -] 100 mg PO BID capsule 10/06/17 Heparin - 1,000 unit IVPUSH PRN PRN vial 10/06/17 Heparin - 5,000 unit IVPUSH PRN PRN vial 10/06/17 Insulin (Levemir) [Levemir Vial] 10 units SQ DAILY@0700 units 10/06/17 Insulin Sliding Scale [Novolog 1 vial SQ ACHS units 10/06/17 Vial Sliding Scale -] Lidocaine 5% Patch [Lidoderm -] 1 patch TP DAILY patch 10/06/17 Lidocaine Patch Removal [Lidoderm 1 each MC DAILY@2200 each 10/06/17 Patch Removal] Metoprolol Tartrate [Lopressor -] 50 mg PO BID tablet 10/06/17 Sevelamer Carbonate [Renvela -] 1,600 mg PO TIDCM tab 10/06/17 oxyCODONE HCL [Roxicodone -] 10 mg PO Q4H PRN #10 tablet MDD 6 10/06/17 traZODone HCL [Desyrel -] 300 mg PO HS tablet 10/06/17 Allergies Allergy/AdvReac Type Severity Reaction Status Date / Time shellfish derived Allergy Severe "HIVES" Verified 03/18/17 14:03 No Known Drug Allergies Allergy Verified 03/18/17 14:03 REVIEW OF SYSTEMS: CONSTITUTIONAL: + subjective fevers, chills CARDIOVASCULAR: Absent: chest pain RESPIRATORY: Absent: cough, shortness of breath GASTROINTESTINAL: Absent: abdominal pain PHYSICAL EXAM: GENERAL: Awake, alert, and fully oriented, in no acute distress. HEAD: Normal with no signs of trauma. LOWER EXTREMITIES: LLE with prosthesis in place (pt declined exam reports no ulcerations to stump). RLE with well healed 1st and 2nd toe amp sites, 4th toe edematous with large open ulcer extending from proximal to PIP to plantar aspect of foot. Boggy with moderate fibrinous exudate and purulent drainage. + avulsion of toe nail. 3rd and 5th toe closely involved with +edema and ulcer spreading onto 3rd toe. + 2+ edema upto ankle. No ttp on plantar surface of foot , + callus at lateral aspect of foot overlying 5th metatarsal. Vasc: 2+ fem b/l, 2+ pop b/l, unable to appreciate pedal pulses due to edema, no doppler available Vital Signs Temperature 100.4 F H 04/06/19 16:25 Pulse Rate 91 H 04/06/19 16:25 Respiratory Rate 18 04/06/19 16:25 Blood Pressure 116/60 04/06/19 16:25 O2 Sat by Pulse Oximetry (%) 98 04/06/19 16:25 Lab Results WBC 17.8 K/mm3 (4.0-10.0) H 04/07/19 05:30 RBC 3.15 M/mm3 (4.00-5.60) L 04/07/19 05:30 Hgb 8.6 GM/dL (11.7-16.9) L 04/07/19 05:30 Hct 27.3 % (35.4-49) L 04/07/19 05:30 MCV 86.5 fl (80-96) 04/07/19 05:30 MCHC 31.6 g/dl (32.0-35.9) L 04/07/19 05:30 RDW 17.6 % (11.9-15.9) H 04/07/19 05:30 Plt Count 385 K/MM3 (134-434) 04/07/19 05:30 Sodium 129 mmol/L (136-145) L 04/07/19 05:30 Potassium 4.8 mmol/L (3.5-5.1) 04/07/19 05:30 Chloride 95 mmol/L (98-107) L 04/07/19 05:30 Carbon Dioxide 20 mmol/L (21-32) L 04/07/19 05:30 Anion Gap 14 MMOL/L (8-16) 04/07/19 05:30 BUN 63.4 mg/dL (7-18) H 04/07/19 05:30 Creatinine 7.3 mg/dL (0.55-1.3) H 04/07/19 05:30 Random Glucose 459 mg/dL (74-106) H* 04/07/19 05:30 Calcium 8.3 mg/dL (8.5-10.1) L 04/07/19 05:30 A/P: 61 y/o M w/ PMHx IDDM, HTN, ESRD (//Sat), left BKA (diabetic foot infection), Neuropathy now presenting to ED with right foot infection. Pt with sepsis from R foot infection. D/w pt need for likely open TMA at this time to allow infection to drain, pt amendable. Pt on HD, last session was Saturday, creatinine >7, will need HD today. Last PO intake was small breakfast at 7AM per pt. -D/w Dr Daly, Dr Shirley to evaluate for OR -Coags and t&s pending -Blood cultures -renal consult for HD -Monitor cbc pt w/ hgb 7.4 upon admission to ED now >8 likely dilutional -Plan pending d/w Podiatry
[2019-04-07] MEDS ORDERED: ACETAMINOPHEN 325 MG TABLET (FP) PO ONE ×3 (10:57→23:15)
[2019-04-07] MEDS ORDERED: ACETAMINOPHEN 325 MG TABLET (FP) ONE (11:00)
--- NOTE | 2019-04-07 11:47 | CONSULT ---
Consult Consult Specialty:: Endocrinology Referred by:: Emily Neumann Reason for Consultation:: Hyperglycemia - History of Present Illness Chief Complaint: Rt foot wound History of Present Illness: This is a 61 y/o man with a PMHx of T2DM since 2001, on Insulin from about the same time, HTN, ESRD (//Sat), left BKA, Neuropathy who presented to the ED with a non-healing right foot wound. Patient reports that around 6 weeks ago he injured his right foot while exiting the elevator. He reports that the wound became foul smelling with discharge 6 days ago which prompted him to come in to the ED for evaluation. Patient reports bloody and purulent discharge from the right foot. Patient reports swelling of the right foot. Patient reports that he has chronic generalized pain over his right leg and foot. Patient denies fever, chills, shortness of breath, chest pain, palpitations, AP, N/V/ constipation. Pt is a poor historian. Unclear how much Insulin he was taking at Home. Says he takes Lantus 7 units daily in the morning and Humalog 20 units with food sometimes. First meal of the day is around 6 PM. 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: Peripheral Neuropathy Cardio/Vascular: Yes: HTN Gastrointestinal: Yes: GERD Renal/: Yes: Renal Failure, Renal Inusuff, Hemodialysis Infectious Disease: Yes: Other (osteomyelitis) Psych: Yes: Depression Musculoskeletal: Yes: Other (chronic pain) Rheumatology: Yes: Other (history of osteomyelitis) Endocrine: Yes: Diabetes Mellitus - Past Surgical History Past Surgical History: Yes: Amputation (transmetatarsal of Left foot) - Alcohol/Substance Use Hx Alcohol Use: No Number of Drinks Daily: 2 (weekends) History of Substance Use: reports: None - Smoking History Smoking history: Former smoker Have you smoked in the past 12 months: Yes Aproximately how many cigarettes per day: 1 If you are a former smoker, when did you quit?: FEB 2019 - Social History Usual Living Arrangement: Alone ADL: Support Services History of Recent Travel: No Home Medications - Allergies Allergies/Adverse Reactions: Allergies Allergy/AdvReac Type Severity Reaction Status Date / Time shellfish derived Allergy Severe "HIVES" Verified 03/18/17 14:03 No Known Drug Allergies Allergy Verified 03/18/17 14:03 - Home Medications Home Medications: Ambulatory Orders Ergocalciferol (Vitamin D2) [Vitamin D2] 50,000 unit PO WEEKLY 03/18/17 Albuterol 0.083% Nebulizer Coretta [Ventolin 0.083% Nebulizer Soln -] 1 amp NEB Q4H PRN #120 amp 08/23/17 Amlodipine Besylate [Norvasc -] 10 mg PO DAILY #30 tablet 08/23/17 Ascorbate Calcium [Vitamin C] 500 mg PO DAILY #30 tablet 08/23/17 Duloxetine HCl 30 mg PO DAILY #30 capsule.dr 08/23/17 Fluticasone Prop 0.05% Nasal [Flonase -] 1 - 2 spray NS DAILY #1 spray.pump Folic Acid - 1 mg PO DAILY #30 tablet 08/23/17 Furosemide [Lasix] 80 mg PO DAILY #30 tablet 08/23/17 Mirtazapine [Remeron -] 30 mg PO HS #30 tablet 08/23/17 Sodium Bicarbonate 325 gr PO BID 09/24/17 Acetaminophen [Tylenol .Regular Strength -] 650 mg PO Q6H PRN tablet 10/06/17 Albuterol 2.5/Ipratropium 0.5 [Duoneb -] 1 amp NEB RQID amp 10/06/17 Daptomycin [Cubicin (Restricted To Id) -] 500 mg IVPB MoWeFr@1000 vial Doxazosin Mesylate [Cardura -] 4 mg PO DAILY tablet 10/06/17 Gabapentin [Neurontin -] 100 mg PO BID capsule 10/06/17 Heparin - 1,000 unit IVPUSH PRN PRN vial 10/06/17 Heparin - 5,000 unit IVPUSH PRN PRN vial 10/06/17 Insulin (Levemir) [Levemir Vial] 10 units SQ DAILY@0700 units 10/06/17 Insulin Sliding Scale [Novolog Vial Sliding Scale -] 1 vial SQ ACHS units 10/06 Lidocaine 5% Patch [Lidoderm -] 1 patch TP DAILY patch 10/06/17 Lidocaine Patch Removal [Lidoderm Patch Removal] 1 each MC DAILY@2200 each 02/13 Metoprolol Tartrate [Lopressor -] 50 mg PO BID tablet 10/06/17 Sevelamer Carbonate [Renvela -] 1,600 mg PO TIDCM tab 10/06/17 oxyCODONE HCL [Roxicodone -] 10 mg PO Q4H PRN #10 tablet MDD 6 10/06/17 traZODone HCL [Desyrel -] 300 mg PO HS tablet 10/06/17 Family Medical History Family Hx Diabetes: Mother Review of Systems - Review of Systems Constitutional: reports: No Symptoms Eyes: reports: No Symptoms HENT: reports: No Symptoms Neck: reports: No Symptoms Cardiovascular: reports: No Symptoms Respiratory: reports: No Symptoms Gastrointestinal: reports: No Symptoms Genitourinary: reports: No Symptoms Neurological: reports: No Symptoms Endocrine: reports: No Symptoms Hematology/Lymphatic: reports: No Symptoms Psychiatric: reports: No Symptoms Physical Exam Vital Signs: Vital Signs Temperature 100.3 F H 04/07/19 11:10 Pulse Rate 80 04/07/19 11:15 Respiratory Rate 18 04/07/19 11:15 Blood Pressure 119/66 04/07/19 11:15 O2 Sat by Pulse Oximetry (%) 90 L 04/07/19 10:55 Constitutional: Yes: No Distress, Calm Eyes: Yes: Conjunctiva Clear, EOM Intact HENT: Yes: Atraumatic, Normocephalic Neck: Yes: Supple, Trachea Midline Cardiovascular: Yes: Regular Rate and Rhythm Respiratory: Yes: Regular, CTA Bilaterally Gastrointestinal: Yes: Normal Bowel Sounds, Soft Musculoskeletal: Yes: WNL Extremities: Yes: Amputation (Left BKA, Rt foot dressing) Labs: CBC, BMP 04/07/19 05:30 04/07/19 05:30 Assessment/Plan Right foot Infection/Metatarsal osteomyelitis Sepsis ESRD on HD DM Uncontrolled: A1c 10.3 HTN PVD S/P Left BKA H/O MRSA bacteremia 09/2017 suspected from HD catheter H.O Right IJ thrombus in 09/2017 (suspected catheter related) BGM QACHS and 3 PM Monitor blood sugar closely as pts with CKD tend to be very sensitive to Insulin and develop hypoglycemia frequently Levemir 12 units daily Change Novolog SS coverage Vascular surgery consult noted Will F/u
--- NOTE | 2019-04-07 12:50 | PN ---
Teaching Attending Note Name of Resident: Srini Adame ATTENDING PHYSICIAN STATEMENT I saw and evaluated the patient. I reviewed the resident's note and discussed the case with the resident. I agree with the resident's findings and plan as documented with exceptions below. SUBJECTIVE: patient seen and examined, ongoing right foot swelling/foul smelling discharge, pos chills, intermittently. Denies any pain. OBJECTIVE: Vital Signs Period Temp Pulse Resp BP Sys/Gutierrez Pulse Ox Last 24 Hr 100.3 F-100.4 F 77-91 17-18 98-127/57-75 90-98 Intake & Output 04/04/19 04/05/19 04/06/19 04/07/19 23:59 23:59 23:59 23:59 Intake Total 200 Balance 200 Weight 174 lb 2.643 oz General: sitting in stretcher, no acute distress neck: soft, supple Chest: CTAB, no rales or wheezing Abdomen;Soft, NT, ND Extremities: left BKA, RLE with well healed 1st and 2nd toe amp sites, 4th toe edematous with large open ulcer extending from proximal to PIP to plantar aspect of foot. Boggy with moderate fibrinous exudate and purulent drainage. + avulsion of toe nail. 3rd and 5th toe closely involved with +edema and ulcer spreading onto 3rd toe. + 2+ edema upto ankle. No ttp on plantar surface of foot , + callus at lateral aspect of foot overlying 5th metatarsal. Home Medications Medication Instructions Recorded Ergocalciferol (Vitamin D2) 50,000 unit PO WEEKLY 03/18/17 [Vitamin D2] Albuterol 0.083% Nebulizer Coretta 1 amp NEB Q4H PRN #120 amp 08/23/17 [Ventolin 0.083% Nebulizer Soln -] Amlodipine Besylate [Norvasc -] 10 mg PO DAILY #30 tablet 08/23/17 Ascorbate Calcium [Vitamin C] 500 mg PO DAILY #30 tablet 08/23/17 Duloxetine HCl 30 mg PO DAILY #30 capsule. 08/23/17 Fluticasone Prop 0.05% Nasal 1 - 2 spray NS DAILY #1 spray.pump 08/23/17 [Flonase -] Folic Acid - 1 mg PO DAILY #30 tablet 08/23/17 Furosemide [Lasix] 80 mg PO DAILY #30 tablet 08/23/17 Mirtazapine [Remeron -] 30 mg PO HS #30 tablet 08/23/17 Sodium Bicarbonate 325 gr PO BID 09/24/17 Acetaminophen [Tylenol .Regular 650 mg PO Q6H PRN tablet 10/06/17 Strength -] Albuterol 2.5/Ipratropium 0.5 1 amp NEB RQID amp 10/06/17 [Duoneb -] Daptomycin [Cubicin (Restricted 500 mg IVPB MoWeFr@1000 vial 10/06/17 To Id) -] Doxazosin Mesylate [Cardura -] 4 mg PO DAILY tablet 10/06/17 Gabapentin [Neurontin -] 100 mg PO BID capsule 10/06/17 Heparin - 1,000 unit IVPUSH PRN PRN vial 10/06/17 Heparin - 5,000 unit IVPUSH PRN PRN vial 10/06/17 Insulin (Levemir) [Levemir Vial] 10 units SQ DAILY@0700 units 10/06/17 Insulin Sliding Scale [Novolog 1 vial SQ ACHS units 10/06/17 Vial Sliding Scale -] Lidocaine 5% Patch [Lidoderm -] 1 patch TP DAILY patch 10/06/17 Lidocaine Patch Removal [Lidoderm 1 each MC DAILY@2200 each 10/06/17 Patch Removal] Metoprolol Tartrate [Lopressor -] 50 mg PO BID tablet 10/06/17 Sevelamer Carbonate [Renvela -] 1,600 mg PO TIDCM tab 10/06/17 oxyCODONE HCL [Roxicodone -] 10 mg PO Q4H PRN #10 tablet MDD 6 10/06/17 traZODone HCL [Desyrel -] 300 mg PO HS tablet 10/06/17 Active Medications Albuterol Sulfate (Ventolin 0.083% Nebulizer Soln -) 1 amp NEB Q4H PRN PRN Reason: SHORT OF BREATH/WHEEZING Doxazosin Mesylate (Cardura -) 4 mg PO DAILY IGGY Fluticasone Propionate (Flonase -) 1 spray NS DAILY IGGY Gabapentin (Neurontin -) 100 mg PO BID IGGY Last Admin: 04/06/19 23:00 Dose: 100 mg Sodium Chloride (Normal Saline -) 250 mls @ 3,000 mls/hr IV PRN PRN PRN Reason: Hypotension during Dialysis Stop: 04/08/19 09:57 Insulin Aspart (Novolog Vial Sliding Scale -) 1 vial SQ ACHS [facility]; Protocol Last Admin: 04/07/19 08:03 Dose: 10 unit Insulin Detemir (Levemir Vial) 12 units SQ DAILY@0700 [facility] Last Admin: 04/07/19 08:03 Dose: 12 unit Methadone HCl (Dolophine -) 2.5 mg PO TID [facility] Last Admin: 04/07/19 08:03 Dose: 2.5 mg Nifedipine (Procardia Xl -) 90 mg PO DAILY [facility] Trazodone HCl 400 mg/ (Trazodone HCl 50 mg) 450 mg PO HS [facility] Laboratory Results - last 24 hr 04/06/19 04/06/19 04/06/19 17:45 17:46 22:24 WBC 20.1 H RBC 2.83 L Hgb 7.6 L Hct 24.7 L D MCV 87.5 MCH 26.8 D MCHC 30.7 L RDW 17.8 H Plt Count 371 D MPV 8.8 D Absolute Neuts (auto) 18.2 H Neutrophils % 90.6 H Neutrophils % (Manual) 75.0 Band Neutrophils % 10.0 Lymphocytes % 3.1 L D Lymphocytes % (Manual) 6.0 L D Monocytes % 6.0 Monocytes % (Manual) 5 Eosinophils % 0.0 D Eosinophils % (Manual) 0.0 Basophils % 0.3 Basophils % (Manual) 0.0 Nucleated RBC % 0 Hypochromia 1+ Anisocytosis 1+ VBG pH 7.38 POC VBG pCO2 30.6 L POC VBG pO2 59.4 H VBG HCO3 17.8 L VBG O2 Sat (Javon) 88.1 H VBG Base Excess -6.0 L Sodium 127 L Potassium 4.9 Chloride 95 L Carbon Dioxide 19 L Anion Gap 13 BUN 61.7 H Creatinine 6.9 H Est GFR (CKD-EPI)AfAm 8.95 Est GFR (CKD-EPI)NonAf 7.72 POC Glucometer Random Glucose 546 H* Hemoglobin A1c % Lactic Acid Calcium 8.0 L Total Bilirubin 0.6 AST 11 L ALT 10 L Alkaline Phosphatase 130 H Creatine Kinase Troponin I C-Reactive Protein Total Protein 6.0 L Albumin 2.0 L 04/06/19 04/06/19 04/06/19 22:49 23:00 23:00 WBC RBC Hgb Hct MCV MCH MCHC RDW Plt Count MPV Absolute Neuts (auto) Neutrophils % Neutrophils % (Manual) Band Neutrophils % Lymphocytes % Lymphocytes % (Manual) Monocytes % Monocytes % (Manual) Eosinophils % Eosinophils % (Manual) Basophils % Basophils % (Manual) Nucleated RBC % Hypochromia Anisocytosis VBG pH POC VBG pCO2 POC VBG pO2 VBG HCO3 VBG O2 Sat (Javon) VBG Base Excess Sodium Potassium Chloride Carbon Dioxide Anion Gap BUN Creatinine Est GFR (CKD-EPI)AfAm Est GFR (CKD-EPI)NonAf POC Glucometer 565 Random Glucose Hemoglobin A1c % Lactic Acid 0.9 Calcium Total Bilirubin AST ALT Alkaline Phosphatase Creatine Kinase 26 Troponin I < 0.02 C-Reactive Protein Total Protein Albumin 04/07/19 04/07/19 04/07/19 05:30 05:30 07:53 WBC 17.8 H RBC 3.15 L Hgb 8.6 L Hct 27.3 L MCV 86.5 MCH 27.4 MCHC 31.6 L RDW 17.6 H Plt Count 385 MPV 8.1 Absolute Neuts (auto) 16.0 H Neutrophils % 90.1 H Neutrophils % (Manual) Band Neutrophils % Lymphocytes % 3.7 L Lymphocytes % (Manual) Monocytes % 5.3 Monocytes % (Manual) Eosinophils % 0.5 D Eosinophils % (Manual) Basophils % 0.4 Basophils % (Manual) Nucleated RBC % 0 Hypochromia Anisocytosis VBG pH POC VBG pCO2 POC VBG pO2 VBG HCO3 VBG O2 Sat (Javon) VBG Base Excess Sodium 129 L Potassium 4.8 Chloride 95 L Carbon Dioxide 20 L Anion Gap 14 BUN 63.4 H Creatinine 7.3 H Est GFR (CKD-EPI)AfAm 8.36 Est GFR (CKD-EPI)NonAf 7.21 POC Glucometer 441 Random Glucose 459 H* Hemoglobin A1c % Lactic Acid Calcium 8.3 L Total Bilirubin AST ALT Alkaline Phosphatase Creatine Kinase Troponin I C-Reactive Protein Total Protein Albumin 04/07/19 04/07/19 11:15 11:15 WBC RBC Hgb Hct MCV MCH MCHC RDW Plt Count MPV Absolute Neuts (auto) Neutrophils % Neutrophils % (Manual) Band Neutrophils % Lymphocytes % Lymphocytes % (Manual) Monocytes % Monocytes % (Manual) Eosinophils % Eosinophils % (Manual) Basophils % Basophils % (Manual) Nucleated RBC % Hypochromia Anisocytosis VBG pH POC VBG pCO2 POC VBG pO2 VBG HCO3 VBG O2 Sat (Javon) VBG Base Excess Sodium Potassium Chloride Carbon Dioxide Anion Gap BUN Creatinine Est GFR (CKD-EPI)AfAm Est GFR (CKD-EPI)NonAf POC Glucometer Random Glucose Hemoglobin A1c % 10.8 H Lactic Acid Calcium Total Bilirubin AST ALT Alkaline Phosphatase Creatine Kinase Troponin I C-Reactive Protein 22.3 H Total Protein Albumin Right foot xray: soft tissue swelling with soft tissue emphysematous, deformities consistent with osteomyelitis noted ASSESSMENT AND PLAN: 63 yom with PMhx of ESRD on HD (TThS), IDDM, HTN, PVD, Left BKA, Diabetic neuropathy, prior h/o MRSA bacteremia 09/2017 suspected from HD catheter, Right IJ thrombus in 09/2017 (suspected catheter related) admitted with progressive right foot swelling, redness, foul smelling discharge, chills, after injury to right foot 6 weeks ago. -Right foot abscess/cellulitis/Metatarsal osteomyelitis -GPC bacteremia from above, high risk for MRSA -Sepsis -ESRD on HD () -IDDM with severe hyperglycemia, suspect from infection +/- non compliance -pseudohyponatremia -HTN -PVD -Left BKA -Prior h/o MRSA bacteremia 09/2017 suspected from HD catheter -Right IJ thrombus in 09/2017 (suspected catheter related) Plan: Vascular surgery input noted Plan for OR with podiatry, anticipate TMA to allow for wound drainage. blood cultures noted. ESR/CRP noted. Foot xray already with osteomyelitis Will hold off on MRI LE given operative plans. NPO, HD per renal (to be co-ordinated with OR plans) S/p vanco in ED, redose with HD, continue zosyn. Intra-op wound cultures ID input Levemir 12 units daily, will need up-titration based on blood sugars. A1c noted. ISS. Endocrine consulted on admission. Continue nifedipine/Doxazocin. Confirm home meds including methadone. DVTPPX heparin to be started based on surgical plans. Dispo pending above Plan discussed with patient in detail, care co-ordinated with vascular surgery.
--- NOTE | 2019-04-07 13:37 | CONSULT ---
Consult - text type - Consultation Consultation Note: Podiatry Consultation: 63 year old diabetic male presents with diabetic infection in the right foot. Patient endorses a history of trauma to the right foot about 6 weeks ago. He saw his PCP shortly after who advised admission to the hospital and the patient refused, wanting to performing local wound care on his own. He currently presents with fever, as high as 100F. Denies C/SOB/CP/N. Seen and evaluated in dialysis. PMHx: IDDM, HTN, ESRD (T//Sat), left BKA (diabetic foot infection), Neuropathy Meds: noted ALL: shellfish GUI: R foot: pedal pulses 1/4, TG warm-warm. There is wet gangrenous changes of the forefoot, exposed proximal phalanx on the third digit, necrotic changes to the forefoot, (+) purulent drainage, (+) fluctuance, no soft tissue crepitus, no streaking cellulitis. R foot XR: lytic changes 3rd/4th MTPJ Imp: 63 year old diabetic male with wet gangrene, osteomyelitis right forefoot 1. Intravenous abx per infectious disease 2. Discussed treatment options at length with patient in HD. Will plan for transmetatarsal amputation right foot this afternoon after HD. 3. Patient is currently NPO. 4. Will closely follow. Anna Shirley DPM
--- NOTE | 2019-04-07 14:12 | CON.ID ---
Consult Consult Specialty:: infectious diseases Referred by:: Thien Reason for Consultation:: rt foot wound - History of Present Illness Chief Complaint: non healing rt foot wound History of Present Illness: 61 y/o man with a PMHx of DM, HTN, ESRD (//Sat), left BKA, Neuropathy. Who presents to the ED with a non-healing right foot wound. Patient reports that around 6 weeks ago he injured his right foot while exiting the elevator. He reports that the wound became foul smelling with discharge 6 days ago which prompted him to come in to the ED for evaluation. Patient reports bloody and purulent discharge from the right foot. Patient reports swelling of the right foot. Patient reports that he has chronic generalized pain over his right leg and foot. Patient denies fever, chills, shortness of breath, chest pain, palpitations, AP, N/V/ constipation. - History Source History Provided By: Patient Limitations to Obtaining History: No Limitations - Past Medical History DIRECTOR OF RECRUITING: Yes: Peripheral Neuropathy Cardio/Vascular: Yes: HTN Gastrointestinal: Yes: GERD Renal/: Yes: Renal Failure, Renal Inusuff, Hemodialysis Infectious Disease: Yes: Other (osteomyelitis) Psych: Yes: Depression Musculoskeletal: Yes: Other (chronic pain) Rheumatology: Yes: Other (history of osteomyelitis) Endocrine: Yes: Diabetes Mellitus - Past Surgical History Past Surgical History: Yes: Amputation (transmetatarsal of Left foot) - Alcohol/Substance Use Hx Alcohol Use: No Number of Drinks Daily: 2 (weekends) History of Substance Use: reports: None - Smoking History Smoking history: Former smoker Have you smoked in the past 12 months: Yes Aproximately how many cigarettes per day: 1 If you are a former smoker, when did you quit?: FEB 2019 - Social History Usual Living Arrangement: Alone ADL: Support Services History of Recent Travel: No Home Medications - Allergies Allergies/Adverse Reactions: Allergies Allergy/AdvReac Type Severity Reaction Status Date / Time shellfish derived Allergy Severe "HIVES" Verified 03/18/17 14:03 No Known Drug Allergies Allergy Verified 03/18/17 14:03 - Home Medications Home Medications: Ambulatory Orders Albuterol 0.083% Nebulizer Coretta [Ventolin 0.083% Nebulizer Soln -] 1 amp NEB Q4H PRN #120 amp 08/23/17 Fluticasone Prop 0.05% Nasal [Flonase -] 1 - 2 spray NS DAILY #1 spray.pump Doxazosin Mesylate [Cardura -] 4 mg PO DAILY tablet 10/06/17 Gabapentin [Neurontin -] 100 mg PO BID capsule 10/06/17 Insulin Sliding Scale [Novolog Vial Sliding Scale -] 1 vial SQ ACHS units 10/06 Lidocaine 5% Patch [Lidoderm -] 1 patch TP DAILY patch 10/06/17 Lidocaine Patch Removal [Lidoderm Patch Removal] 1 each MC DAILY@2200 each 02/13 Insulin (Levemir) [Levemir Vial] 12 unit SQ DAILY@0700 04/07/19 Nifedipine ER [Procardia XL -] 90 mg PO DAILY 04/07/19 traZODone HCL [Desyrel -] 450 mg PO HS 04/07/19 Review of Systems - Review of Systems Constitutional: reports: No Symptoms Eyes: reports: No Symptoms HENT: reports: No Symptoms Cardiovascular: reports: No Symptoms Respiratory: reports: No Symptoms Gastrointestinal: reports: No Symptoms Genitourinary: reports: No Symptoms Musculoskeletal: reports: No Symptoms Integumentary: reports: Other Neurological: reports: No Symptoms Endocrine: reports: No Symptoms Hematology/Lymphatic: reports: No Symptoms Psychiatric: reports: No Symptoms Physical Exam Vital Signs: Vital Signs Temperature 100.3 F H 04/07/19 11:10 Pulse Rate 78 04/07/19 13:30 Respiratory Rate 18 04/07/19 13:30 Blood Pressure 111/65 04/07/19 13:30 O2 Sat by Pulse Oximetry (%) 90 L 04/07/19 10:55 Constitutional: Yes: Well Nourished, Calm, Mild Distress Eyes: Yes: Conjunctiva Clear HENT: Yes: Atraumatic, Normocephalic Neck: Yes: Supple, Trachea Midline Cardiovascular: Yes: Regular Rate and Rhythm Respiratory: Yes: Regular, CTA Bilaterally Gastrointestinal: Yes: Normal Bowel Sounds, Soft Musculoskeletal: Yes: Other Extremities: Yes: Erythema, Other Wound/Incision: Yes: Dressing Dry and Intact, Dressing Removed, Draining Neurological: Yes: Alert, Oriented Psychiatric: Yes: Alert, Oriented Labs: CBC, BMP 04/07/19 05:30 04/07/19 05:30 Imaging - Results Chest X-ray: Report Reviewed, Image Reviewed X-ray: Report Reviewed, Image Reviewed Assessment/Plan 61 year old male with a past medical history of DM, HTN, ESRD on dialysis (TThS) , left BKA, diabetic neuropathy, hx of MRSA bacteremia, presenting for a sepsis from likely osteomyelitis of R foot. sepsis osteo r foot esrd htn dm gas gangrene plan await for all results and blood and wound cx podiatry on case patient might end up needing amputation wound care rest as per the team
[2019-04-07] MEDS ORDERED: VANCOMYCIN 1 GM in D5W (PRE-DOCKED) 1,000 MG/250 ML IVPB ONE ×2 (14:44→18:49)
[2019-04-07 15:00] LABS: INR 1.34 (0.83-1.09); PROTHROMBIN TIME (PATIENT) 15.9 SEC (9.7-13.0)
[2019-04-07] MEDS ORDERED: LIDOCAINE HCL 1%, 10 MG/ML (20ML VIAL) ONE (15:39)
[2019-04-07] MEDS ORDERED: BUPIVACAINE HCL/PF 0.5% (5 MG/ML) 30 ML VIAL IJ ONE ×2 (15:39)
--- NOTE | 2019-04-07 16:11 | CONSULT ---
Consult - text type - Consultation Consultation Note: Renal consult for ESRD on HD This is a 63 year old gentleman with history of ESRD on HD (TTS ), DM, PVD s/p BKA who presented from home with non-healing foot wound. His last dialysis was Saturday. He injured his foot seveal weeks ago but did not seek medical attention until this week. He has drainage from his wound. He denies any pain, fever or chills. No N/V/D, SOB or chest pain. Currently on dialysis. PMhx: as above Allergies: NKDA Family hx: NC Social Hx: No T/A/D ROS: as per HPI, all other pertinent ros negative Home Medications Medication Instructions Recorded Ergocalciferol (Vitamin D2) 50,000 unit PO WEEKLY 03/18/17 [Vitamin D2] Albuterol 0.083% Nebulizer Coretta 1 amp NEB Q4H PRN #120 amp 08/23/17 [Ventolin 0.083% Nebulizer Soln -] Amlodipine Besylate [Norvasc -] 10 mg PO DAILY #30 tablet 08/23/17 Ascorbate Calcium [Vitamin C] 500 mg PO DAILY #30 tablet 08/23/17 Duloxetine HCl 30 mg PO DAILY #30 capsule.dr 08/23/17 Fluticasone Prop 0.05% Nasal 1 - 2 spray NS DAILY #1 spray.pump 08/23/17 [Flonase -] Folic Acid - 1 mg PO DAILY #30 tablet 08/23/17 Furosemide [Lasix] 80 mg PO DAILY #30 tablet 08/23/17 Mirtazapine [Remeron -] 30 mg PO HS #30 tablet 08/23/17 Sodium Bicarbonate 325 gr PO BID 09/24/17 Acetaminophen [Tylenol .Regular 650 mg PO Q6H PRN tablet 10/06/17 Strength -] Albuterol 2.5/Ipratropium 0.5 1 amp NEB RQID amp 10/06/17 [Duoneb -] Daptomycin [Cubicin (Restricted 500 mg IVPB MoWeFr@1000 vial 10/06/17 To Id) -] Doxazosin Mesylate [Cardura -] 4 mg PO DAILY tablet 10/06/17 Gabapentin [Neurontin -] 100 mg PO BID capsule 10/06/17 Insulin Sliding Scale [Novolog 1 vial SQ ACHS units 10/06/17 Vial Sliding Scale -] Lidocaine 5% Patch [Lidoderm -] 1 patch TP DAILY patch 10/06/17 Lidocaine Patch Removal [Lidoderm 1 each MC DAILY@2200 each 10/06/17 Patch Removal] Metoprolol Tartrate [Lopressor -] 50 mg PO BID tablet 10/06/17 Sevelamer Carbonate [Renvela -] 1,600 mg PO TIDCM tab 10/06/17 oxyCODONE HCL [Roxicodone -] 10 mg PO Q4H PRN #10 tablet MDD 6 10/06/17 Insulin (Levemir) [Levemir Vial] 12 unit SQ DAILY@0700 04/07/19 Nifedipine ER [Procardia XL -] 90 mg PO DAILY 04/07/19 traZODone HCL [Desyrel -] 450 mg PO HS 04/07/19 Vital Signs Temperature 98.4 F 04/07/19 15:55 Pulse Rate 92 H 04/07/19 15:55 Respiratory Rate 20 04/07/19 15:55 Blood Pressure 108/71 04/07/19 15:55 O2 Sat by Pulse Oximetry (%) 90 L 04/07/19 10:55 Intake & Output 04/04/19 04/05/19 04/06/19 04/07/19 23:59 23:59 23:59 23:59 Intake Total 500 Output Total 2000 Balance -1500 Weight 79 kg NAD awake and alert neck supple, no JVD RRR CTA soft NT/ND no LE edema, R BKA, left foot in dressing CBC, BMP 04/07/19 05:30 04/07/19 05:30 Current Medications Albuterol Sulfate (Ventolin 0.083% Nebulizer Soln -) 1 amp NEB Q4H PRN PRN Reason: SHORT OF BREATH/WHEEZING Doxazosin Mesylate (Cardura -) 4 mg PO DAILY IGGY Fluticasone Propionate (Flonase -) 1 spray NS DAILY IGGY Gabapentin (Neurontin -) 100 mg PO BID IGGY Last Admin: 04/06/19 23:00 Dose: 100 mg Sodium Chloride (Normal Saline -) 250 mls @ 3,000 mls/hr IV PRN PRN PRN Reason: Hypotension during Dialysis Stop: 04/08/19 09:57 Vancomycin HCl (Vancomycin 1 Gm Premix -) 1 gm in 200 mls @ 133.333 mls/hr IVPB ONCE ONE Stop: 04/07/19 17:31 Insulin Aspart (Novolog Vial Sliding Scale -) 1 vial SQ HS [facility]; Protocol Insulin Aspart (Novolog Vial Sliding Scale -) 1 vial SQ TIDAC IGGY; Protocol Insulin Detemir (Levemir Vial) 12 units SQ DAILY@0700 [facility] Last Admin: 04/07/19 08:03 Dose: 12 unit Methadone HCl (Dolophine -) 2.5 mg PO TID [facility] Last Admin: 04/07/19 08:03 Dose: 2.5 mg Nifedipine (Procardia Xl -) 90 mg PO DAILY [facility] Trazodone HCl 400 mg/ (Trazodone HCl 50 mg) 450 mg PO [facility] 63 year old gentleman with history of ESRD on HD (TTS), DM, PVD s/p BKA who presented from home with non-healing foot wound. 1. ESRD on HD 2. Infected foot wound 3. Anemia of CKD 4. Pseudohyponatremia 5. Metabolic acidosis 6. Leukocytosis 7. PVD 8 DM type 2 on insulin Tolerating dialysis well today will redose Vanco 1g psot HD, trend levels going forward Vascular and podiatry follow up Wound care follow up cultures will maintain on TTS HD schedule while inpatient. Thank you Miguel Jansen DO
[2019-04-07] MEDS ORDERED: SODIUM CHLORIDE 1,000 ML IV SCH ×2 (16:30→18:49)
[2019-04-07] MEDS ORDERED: INSULIN SLIDING SCALE (NOVOLOG) 1 VIAL SQ SCH ×2 (16:30→22:00)
[2019-04-07] MEDS ORDERED: PROPOFOL 20 ML ONE (16:44)
[2019-04-07] MEDS ORDERED: SUCCINYLCHOLINE CHLORIDE 200 MG/10 ML SYRINGE ONE (16:44)
[2019-04-07] MEDS ORDERED: MIDAZOLAM HCL 2 MG/2 ML SINGLE DOSE VIAL ONE (16:45)
[2019-04-07] MEDS ORDERED: BENZOIN TINCTURE SWABSTICK TP ONE (16:47)
--- NOTE | 2019-04-07 17:28 | PN ---
Physical Exam: SUBJECTIVE: Patient seen and examined at the bedside. Stated that he noted that his foot was infected but did not have any acute pain in the foot at the time. Endorsed numbness in the foot. Denied cp, sob, abd pain, n/v/c/d, fever, chills , headaches, dizziness, lightheadedness. OBJECTIVE: Vital Signs Period Temp Pulse Resp BP Sys/Gutierrez Pulse Ox Last 24 Hr 98.4 F-100.3 F 75-92 17-20 98-127/57-75 90 GENERAL: The patient is awake, alert, and fully oriented, in mild acute distress. HEAD: Normal with no signs of trauma. EYES: PERRL, extraocular movements intact, sclera anicteric, conjunctiva clear. ENT: oropharynx clear without exudates, moist mucous membranes. NECK: Trachea midline, full range of motion, supple. LUNGS: Breath sounds equal, clear to auscultation bilaterally, no wheezes, no crackles, no accessory muscle use. HEART: Regular rate and rhythm, S1, S2 without murmur, rubs. ABDOMEN: Soft, nontender, nondistended, normoactive bowel sounds, no guarding, no rebound, no masses. EXTREMITIES: Amputation (L-BKA). Non-healing wound 2cm over right great and second toes with partial amputation of right toes. Bloody and purulent discharge from wound. Foul-smelling wound. Edematous and fluctuant R foot. No crepitus noted. Non-palpapable pulses on the R side. Good popliteal pulse. NEUROLOGICAL: Cranial nerves II through XII grossly intact. 5/5 muscle strength upper and lower extremities, bilaterally. LBKA. PSYCH: Upset mood over current medical conditon. Laboratory Results - last 24 hr 04/06/19 04/06/19 04/06/19 17:45 17:46 22:24 WBC 20.1 H RBC 2.83 L Hgb 7.6 L Hct 24.7 L D MCV 87.5 MCH 26.8 D MCHC 30.7 L RDW 17.8 H Plt Count 371 D MPV 8.8 D Absolute Neuts (auto) 18.2 H Neutrophils % 90.6 H Neutrophils % (Manual) 75.0 Band Neutrophils % 10.0 Lymphocytes % 3.1 L D Lymphocytes % (Manual) 6.0 L D Monocytes % 6.0 Monocytes % (Manual) 5 Eosinophils % 0.0 D Eosinophils % (Manual) 0.0 Basophils % 0.3 Basophils % (Manual) 0.0 Nucleated RBC % 0 Hypochromia 1+ Anisocytosis 1+ ESR PT with INR INR PTT (Actin FS) VBG pH 7.38 POC VBG pCO2 30.6 L POC VBG pO2 59.4 H VBG HCO3 17.8 L VBG O2 Sat (Javon) 88.1 H VBG Base Excess -6.0 L Sodium 127 L Potassium 4.9 Chloride 95 L Carbon Dioxide 19 L Anion Gap 13 BUN 61.7 H Creatinine 6.9 H Est GFR (CKD-EPI)AfAm 8.95 Est GFR (CKD-EPI)NonAf 7.72 POC Glucometer Random Glucose 546 H* Hemoglobin A1c % Lactic Acid Calcium 8.0 L Total Bilirubin 0.6 AST 11 L ALT 10 L Alkaline Phosphatase 130 H Creatine Kinase Troponin I C-Reactive Protein Total Protein 6.0 L Albumin 2.0 L Random Vancomycin 04/06/19 04/06/19 04/06/19 22:49 23:00 23:00 WBC RBC Hgb Hct MCV MCH MCHC RDW Plt Count MPV Absolute Neuts (auto) Neutrophils % Neutrophils % (Manual) Band Neutrophils % Lymphocytes % Lymphocytes % (Manual) Monocytes % Monocytes % (Manual) Eosinophils % Eosinophils % (Manual) Basophils % Basophils % (Manual) Nucleated RBC % Hypochromia Anisocytosis ESR PT with INR INR PTT (Actin FS) VBG pH POC VBG pCO2 POC VBG pO2 VBG HCO3 VBG O2 Sat (Javon) VBG Base Excess Sodium Potassium Chloride Carbon Dioxide Anion Gap BUN Creatinine Est GFR (CKD-EPI)AfAm Est GFR (CKD-EPI)NonAf POC Glucometer 565 Random Glucose Hemoglobin A1c % Lactic Acid 0.9 Calcium Total Bilirubin AST ALT Alkaline Phosphatase Creatine Kinase 26 Troponin I < 0.02 C-Reactive Protein Total Protein Albumin Random Vancomycin 04/07/19 04/07/19 04/07/19 05:30 05:30 07:53 WBC 17.8 H RBC 3.15 L Hgb 8.6 L Hct 27.3 L MCV 86.5 MCH 27.4 MCHC 31.6 L RDW 17.6 H Plt Count 385 MPV 8.1 Absolute Neuts (auto) 16.0 H Neutrophils % 90.1 H Neutrophils % (Manual) Band Neutrophils % Lymphocytes % 3.7 L Lymphocytes % (Manual) Monocytes % 5.3 Monocytes % (Manual) Eosinophils % 0.5 D Eosinophils % (Manual) Basophils % 0.4 Basophils % (Manual) Nucleated RBC % 0 Hypochromia Anisocytosis ESR PT with INR INR PTT (Actin FS) VBG pH POC VBG pCO2 POC VBG pO2 VBG HCO3 VBG O2 Sat (Javon) VBG Base Excess Sodium 129 L Potassium 4.8 Chloride 95 L Carbon Dioxide 20 L Anion Gap 14 BUN 63.4 H Creatinine 7.3 H Est GFR (CKD-EPI)AfAm 8.36 Est GFR (CKD-EPI)NonAf 7.21 POC Glucometer 441 Random Glucose 459 H* Hemoglobin A1c % Lactic Acid Calcium 8.3 L Total Bilirubin AST ALT Alkaline Phosphatase Creatine Kinase Troponin I C-Reactive Protein Total Protein Albumin Random Vancomycin 04/07/19 04/07/19 04/07/19 11:15 11:15 11:15 WBC RBC Hgb Hct MCV MCH MCHC RDW Plt Count MPV Absolute Neuts (auto) Neutrophils % Neutrophils % (Manual) Band Neutrophils % Lymphocytes % Lymphocytes % (Manual) Monocytes % Monocytes % (Manual) Eosinophils % Eosinophils % (Manual) Basophils % Basophils % (Manual) Nucleated RBC % Hypochromia Anisocytosis ESR 102 H PT with INR INR PTT (Actin FS) VBG pH POC VBG pCO2 POC VBG pO2 VBG HCO3 VBG O2 Sat (Javon) VBG Base Excess Sodium Potassium Chloride Carbon Dioxide Anion Gap BUN Creatinine Est GFR (CKD-EPI)AfAm Est GFR (CKD-EPI)NonAf POC Glucometer Random Glucose Hemoglobin A1c % Lactic Acid Calcium Total Bilirubin AST ALT Alkaline Phosphatase Creatine Kinase Troponin I C-Reactive Protein 22.3 H Total Protein Albumin Random Vancomycin 10.8 L 04/07/19 04/07/19 11:15 14:15 WBC RBC Hgb Hct MCV MCH MCHC RDW Plt Count MPV Absolute Neuts (auto) Neutrophils % Neutrophils % (Manual) Band Neutrophils % Lymphocytes % Lymphocytes % (Manual) Monocytes % Monocytes % (Manual) Eosinophils % Eosinophils % (Manual) Basophils % Basophils % (Manual) Nucleated RBC % Hypochromia Anisocytosis ESR PT with INR 15.90 H INR 1.34 H PTT (Actin FS) 33.0 VBG pH POC VBG pCO2 POC VBG pO2 VBG HCO3 VBG O2 Sat (Javon) VBG Base Excess Sodium Potassium Chloride Carbon Dioxide Anion Gap BUN Creatinine Est GFR (CKD-EPI)AfAm Est GFR (CKD-EPI)NonAf POC Glucometer Random Glucose Hemoglobin A1c % 10.8 H Lactic Acid Calcium Total Bilirubin AST ALT Alkaline Phosphatase Creatine Kinase Troponin I C-Reactive Protein Total Protein Albumin Random Vancomycin Active Medications Generic Name Dose Route Start Last Admin Trade Name Freq PRN Reason Stop Dose Admin Albuterol Sulfate 1 amp 04/06/19 22:12 Ventolin 0.083% Nebulizer Soln - NEB Q4H PRN SHORT OF BREATH/WHEEZING Doxazosin Mesylate 4 mg 04/07/19 10:00 Cardura - PO DAILY IGGY Fentanyl 50 mcg 04/07/19 16:27 Sublimaze Injection - IVPUSH [id number] PRN PAIN-PACU ORDER X 4 DOSES ONLY Fluticasone Propionate 1 spray 04/07/19 10:00 Flonase - NS DAILY IGGY Gabapentin 100 mg 04/06/19 22:15 04/06/19 23:00 Neurontin - PO 100 mg BID IGGY Administration Sodium Chloride 250 mls @ 3,000 mls/hr 04/07/19 09:58 Normal Saline - IV 04/08/19 09:57 PRN PRN Hypotension during Dialysis Vancomycin HCl 1,000 mg in 250 mls @ 166.667 mls/hr 04/07/19 16:15 Vancomycin (Pre-Docked) IVPB 04/07/19 17:44 ONCE ONE Sodium Chloride 1,000 mls @ 42 mls/hr 04/07/19 16:30 Normal Saline - IV ASDIR [facility] Insulin Aspart 1 vial 04/07/19 22:00 Novolog Vial Sliding Scale - SQ HS [facility] Protocol Insulin Aspart 1 vial 04/07/19 16:30 Novolog Vial Sliding Scale - SQ TIDAC [facility] Protocol Insulin Detemir units 04/08/19 07:00 Levemir Vial SQ DAILY@0700 [facility] Lidocaine 1 patch 04/08/19 10:00 Lidoderm Patch - TP DAILY [facility] Methadone HCl 2.5 mg 04/06/19 22:30 04/07/19 08:03 Dolophine - PO 2.5 mg TID IGGY Administration Miscellaneous 1 each 04/07/19 22:00 Lidoderm Patch Removal MC DAILY@2200 [facility] Nifedipine 90 mg 04/08/19 10:00 Procardia Xl - PO DAILY IGGY Trazodone HCl 450 mg 04/07/19 22:00 Desyrel - PO HS IGGY ASSESSMENT/PLAN: Luciano Judge is a 61 year old male with a past medical history of DM, HTN, ESRD on dialysis (TThS), left BKA, diabetic neuropathy, hx of MRSA bacteremia presenting for a sepsis from likely osteomyelitis of R foot. Sepsis from Osteomyelitis - elevated WBC and febrile 100.4 - foot x-ray with emphysematous changes, deformity, lucency, destructive changes of the distal head of third metatarsal, metatarsal head, base of R third proximal phalynx consistent with osteomyelitis - continue Vanco, Zosyn renally dosed - random vanco level in the morning to redose - bacteremia with blood culture growing gram + cocci in clusters - hx of MRSA - seen by podiatry and to undergo TMA of the R foot - ID consulted, awaiting final recs - vascular surgery consulted - ESR/CRP elevated ESRD - received dialysis today prior to surgery - avoid fluid overload - nephrology consulted, recs appreciated - continued dialysis on normal schedule HTN - continue home meds DM - continue Levemir 12 units qAM - ISS - BGM - A1c 10.8 - will require tight insulin dosing in the setting of osteomyelitis - endocrinology consulted, recs appreciated ?Shoulder pain/chronic pain - patient placed on methadone on admission, d/cd now - unable to verify medication through pharmacy - was previously seen in [facility] for shoulder surgery and placed on medication then, will need to call and confirm Hx of PTSD - trazodone 450mg qhs Prophylaxis - heparin 5000 units subq tid as per surgery when cleared due to renal function FEN - caution with fluids as patient in ESRD - continue to monitor electrolytes and replete as necessary, hyponatremic, NS running - renal diet post surgery Dispo - continue to monitor on Med-surg Visit type - Emergency Visit Emergency Visit: Yes ED Registration Date: 04/06/19 Care time: The patient presented to the Emergency Department on the above date and was hospitalized for further evaluation of their emergent condition. - New Patient This patient is new to me today: Yes Date on this admission: 04/07/19 - Critical Care Critical Care patient: No
--- NOTE | 2019-04-07 17:51 | OP ---
Operative Note - Note: Operative Date: 04/07/19 Pre-Operative Diagnosis: wet gangrene with osteomyelitis right foot Operation: right foot guillotine transmetatarsal amputation Findings: see operative note Post-Operative Diagnosis: Same as Pre-op Surgeon: Pedro Shirley Anesthesia: Local, MAC Specimens Removed: forefoot bone and soft tissue right foot Estimated Blood Loss (mls): 25 Operative Report Dictated: Yes
[2019-04-07] MEDS ORDERED: oxyCODONE HCL 5 MG TABLET PO PRN (17:53)
[2019-04-07] MEDS ORDERED: DEXTROSE 50%-WATER - 25 GM/50 ML VIAL IVPUSH ONE ×2 (18:05→18:25)
[2019-04-07] MEDS ORDERED: DEXTROSE 50%-WATER 25 GM/50 ML DISP.SYRIN ONE (18:23)
[2019-04-07] MEDS ORDERED: ALBUTEROL SO4 0.083% IH SOL 2.5 MG/3 ML VIAL.NEB. NEB PRN (18:49)
--- NOTE | 2019-04-07 19:56 | OP ---
DATE OF OPERATION: 04/07/2019 PREOPERATIVE DIAGNOSIS: Right foot with gangrene with osteomyelitis. POSTOPERATIVE DIAGNOSIS: Right foot with gangrene with osteomyelitis. PROCEDURE: Right open transmetatarsal amputation. SURGEON: Pedro Shirley DPM DEVELOPMENT OFFICER: None. ANESTHESIA: IV sedation with local. HEMOSTASIS: Surgical dissection. ESTIMATED BLOOD LOSS: 25 mL. PATHOLOGY: Forefoot bone and soft tissue right foot. COMPLICATIONS: DESCRIPTION OF PROCEDURE: Patient was brought to the operating room and placed on the operating table in the supine position. I applied a pneumatic ankle tourniquet to the patient's right ankle; however, I did not use it during the course of the procedure. Following induction of IV sedation, local anesthesia was achieved using 20 cc of 1% lidocaine plain. The right foot was scrubbed, prepped, and draped in the usual sterile fashion. Attention was directed to the right foot where forefoot gangrene with exposed bone of the 2nd and 3rd toe as well as purulent drainage plantarly was visualized and appreciated. I began performing a circumferential incision at the forefoot at the level of the metatarsophalangeal joint. The incision was deepened using sharp and blunt dissection, taking care to retract vital neural and vascular structures. All bleeders were cauterized and ligated as appropriate. Of note, in the 3rd interspace, there is a deep tracking diabetic infection with purulent drainage. There was also purulence expressed from the bones of the 3rd and 4th metatarsal head. The remaining toes were disarticulated at the level of the metatarsophalangeal joint. They were removed in total and sent to pathology for analysis. Next, the heads and distal shafts of the metatarsals were resected using a sagittal saw. The distal aspects of the metatarsals were removed and sent to pathology for analysis. I inspected the deep tissues at the operative site. There was a flexor tracking infection with purulence all the way down the arch, which was bluntly probed with my finger. All loculations were broken, and all purulence was expressed from the surgical site. Once this was done, the surgical site was copiously irrigated with sterile saline. The surgical site was packed with 1/2-inch iodoform packing. The site was covered with Xeroform, and a sterile compressive dressing was applied to the right foot consisting of sterile gauze, abdominal pad, Kerlix and Shashank wrap. Patient tolerated procedure and anesthesia well without complication. He was transferred from the operating room to the recovery unit with vital signs stable and neural vasculature intact to the right foot. REGGIE BUTCHER/[id number] cc: [facility]
[2019-04-07] MEDS ORDERED: traZODone HCL 100 MG TABLET (FP) PO SCH (22:00)
[2019-04-07] MEDS ORDERED: LIDOCAINE PATCH REMOVAL MC SCH (22:00)
[2019-04-07] MEDS ORDERED: TRAZODONE HCL PO SCH ×2 (22:00)
[2019-04-07] MEDS ORDERED: traZODone HCL 150 MG TABLET PO SCH (22:00)
[2019-04-07] MEDS: LACTATED RINGERS SOLUTION 1,000 ML IV SCH (22:56)
[2019-04-07] MEDS: GABAPENTIN 100 MG CAPSULE (FP) PO SCH ×2 (22:57→23:10)
[2019-04-07] MEDS ORDERED: traZODone HCL 100 MG TABLET (FP) ONE (23:00)
[2019-04-07] MEDS ORDERED: traZODone HCL 50 MG TABLET (FP) ONE (23:01)
[2019-04-07] MEDS ORDERED: PIPERACILLIN/TAZOBACTAM 2.25 GM VIAL IVPB ONE (23:01)
[2019-04-07] MEDS ORDERED: DEXTROSE 5%-WATER - 50 ML IVPB ONE (23:02)
[2019-04-07] MEDS: TRAZODONE HCL PO SCH (23:10)
[2019-04-08] MEDS: INSULIN SLIDING SCALE (NOVOLOG) 1 VIAL SQ SCH ×4 (06:27→23:12)
[2019-04-08] MEDS ORDERED: INSULIN (LEVEMIR) 100 UNITS/ML UNITS SQ SCH ×2 (07:00)
[2019-04-08] MEDS ORDERED: PT OWN MED DRAWER 7, Y5N ONE ×2 (09:40→14:21)
[2019-04-08] MEDS ORDERED: LIDOCAINE 5% TOPICAL PATCH TP SCH (10:00)
[2019-04-08] MEDS ORDERED: NIFEdipine E.R. 90 MG TABLET (FP) PO SCH (10:00)
[2019-04-08] MEDS: LIDOCAINE 5% TOPICAL PATCH TP SCH (10:02)
[2019-04-08] MEDS: DOXAZOSIN MESYLATE 4 MG TABLET PO SCH (10:03)
[2019-04-08] MEDS: GABAPENTIN 100 MG CAPSULE (FP) PO SCH ×2 (10:04→23:11)
[2019-04-08] MEDS: NIFEdipine E.R. 90 MG TABLET (FP) PO SCH (10:05)
--- NOTE | 2019-04-08 10:48 | PN ---
Progress Note (short form) - Note Progress Note: Events noted Hypoglycemia yesterday, Was NPO for surgery Vital Signs Period Temp Pulse Resp BP Sys/Gutierrez Pulse Ox Last 24 Hr 98.4 F-101.5 F 75-104 16-20 98-147/53-80 90-95 PE: AOx3 Neck: Supple, NO JVD HEENT: EOM Lungs: CTA CVS; S1s2 Abd: Benign Ext: Left BKA, Rt foot dressing Neuro: No focal deficit CMP Sodium 129 mmol/L (136-145) L 04/07/19 05:30 Potassium 4.8 mmol/L (3.5-5.1) 04/07/19 05:30 Chloride 95 mmol/L (98-107) L 04/07/19 05:30 Carbon Dioxide 20 mmol/L (21-32) L 04/07/19 05:30 Anion Gap 14 MMOL/L (8-16) 04/07/19 05:30 BUN 63.4 mg/dL (7-18) H 04/07/19 05:30 Creatinine 7.3 mg/dL (0.55-1.3) H 04/07/19 05:30 Est GFR (CKD-EPI)AfAm 8.36 04/07/19 05:30 Est GFR (CKD-EPI)NonAf 7.21 04/07/19 05:30 POC Glucometer 78 UNITS (80-120) 04/08/19 08:53 Random Glucose 136 mg/dL (74-106) H 04/07/19 21:00 Hemoglobin A1c % 10.8 % (4.2-6.3) H 04/07/19 11:15 Lactic Acid 0.9 mmol/L (0.4-2.0) 04/06/19 23:00 Calcium 8.3 mg/dL (8.5-10.1) L 04/07/19 05:30 Total Bilirubin 0.6 mg/dL (0.2-1) 04/06/19 17:45 AST 11 U/L (15-37) L 04/06/19 17:45 ALT 10 U/L (13-61) L 04/06/19 17:45 Alkaline Phosphatase 130 U/L (45-117) H 04/06/19 17:45 Creatine Kinase 26 U/L (26-308) 04/06/19 23:00 Troponin I < 0.02 ng/ml (0.00-0.05) 04/06/19 23:00 C-Reactive Protein 22.3 MG/DL (0.00-0.3) H 04/07/19 11:15 Total Protein 6.0 g/dl (6.4-8.2) L 04/06/19 17:45 Albumin 2.0 g/dl (3.4-5.0) L 04/06/19 17:45 Current Medications Generic Name Dose Route Start Last Admin Trade Name Freq PRN Reason Stop Dose Admin Albuterol Sulfate 1 amp 04/07/19 18:49 Ventolin 0.083% Nebulizer Soln - NEB Q4H PRN SHORT OF BREATH/WHEEZING Doxazosin Mesylate 4 mg 04/08/19 10:00 04/08/19 10:03 Cardura - PO 4 mg DAILY IGGY Administration Fentanyl 50 mcg 04/07/19 18:25 Sublimaze Injection - IVPUSH [id number] PRN PAIN-PACU ORDER X 4 DOSES ONLY Fentanyl 50 mcg 04/07/19 18:49 Sublimaze Injection - IVPUSH [id number] PRN PAIN-PACU ORDER X 4 DOSES ONLY Fluticasone Propionate 1 spray 04/08/19 10:00 Flonase - NS DAILY IGGY Gabapentin 100 mg 04/07/19 22:00 04/08/19 10:04 Neurontin - PO 100 mg BID IGGY Administration Lactated Ringer's 1,000 mls @ 125 mls/hr 04/07/19 18:30 04/07/19 22:56 Lactated Ringers Solution IV Not Given ASDIR IGGY Sodium Chloride 250 mls @ 3,000 mls/hr 04/07/19 18:49 Normal Saline - IV 04/08/19 09:57 PRN PRN Hypotension during Dialysis Sodium Chloride 1,000 mls @ 42 mls/hr 04/07/19 18:49 04/07/19 23:14 Normal Saline - IV 42 mls/hr ASDIR IGGY Administration Insulin Aspart 1 vial 04/07/19 22:00 04/07/19 22:56 Novolog Vial Sliding Scale - SQ Not Given HS [facility] Protocol Insulin Aspart 1 vial 04/08/19 07:00 04/08/19 06:27 Novolog Vial Sliding Scale - SQ Not Given TIDAC [facility] Protocol Insulin Detemir 12 units 04/08/19 07:00 04/08/19 06:27 Levemir Vial SQ Not Given DAILY@0700 [facility] Lidocaine 1 patch 04/08/19 10:00 04/08/19 10:02 Lidoderm Patch - TP 1 patch DAILY IGGY Administration Miscellaneous 1 each 04/08/19 22:00 Lidoderm Patch Removal MC DAILY@2200 [facility] Nifedipine 90 mg 04/08/19 10:00 04/08/19 10:05 Procardia Xl - PO 90 mg DAILY IGGY Administration Oxycodone HCl 5 mg 04/07/19 17:53 04/08/19 10:04 Roxicodone - PO 5 mg Q4H PRN Administration PAIN LEVEL 1-5 Trazodone HCl 400 mg/ 450 mg 04/07/19 22:00 04/07/19 23:10 Trazodone HCl 50 mg PO 450 mg HS IGGY Administration AP: Right foot Infection/Metatarsal osteomyelitis S/P Transmetatarsal amputation: Sepsis ESRD on HD DM Uncontrolled: A1c 10.3/Episode of hypoglycemia asymptomatic HTN PVD S/P Left BKA H/O MRSA bacteremia 09/2017 suspected from HD catheter H.O Right IJ thrombus in 09/2017 (suspected catheter related) BGM QACHS and 3 PM Monitor blood sugar closely as pts with CKD tend to be very sensitive to Insulin and develop hypoglycemia frequently Hold Levemir for now, developted hypoglycemia on it yesterday Novolog SS coverage Vascular surgery consult noted Will F/u
[2019-04-08 11:09] LABS: BASO % 0.3 % (0-2.0); EOS % 0.2 % (0-4.5); HEMATOCRIT 22.2 % (35.4-49); HEMOGLOBIN 7.1 GM/dL (11.7-16.9); MCH 27.3 pg (25.7-33.7); MCHC 31.9 g/dl (32.0-35.9); MEAN CELL VOLUME 85.6 fl (80-96); MONO % 5.4 % (3.8-10.2); NEUT % 91.1 % (42.8-82.8); PLATELET COUNT 285 K/MM3 (134-434); RBC 2.59 M/mm3 (4.00-5.60); RDW 17.1 % (11.9-15.9); WHITE BLOOD COUNT 21.6 K/mm3 (4.0-10.0)
--- NOTE | 2019-04-08 11:18 | PN ---
Progress Note (short form) - Note Progress Note: Podiatry F/U: Seen/evaluated at bedside NAD. Spiking temps still. Labs pending from today. Noted to have MRSA bacteremia. S/p open transmetatarsal amputation POD#1. GUI: R foot: transmetatarsal amputation postoperative site with fibrogranular base, exposed metatarsal stump, liquefactive tissue present along the plantar arch, scant purulent drainage, malodor present, no soft tissue crepitus, no streaking cellulitis. Mild tenderness elicited on palpation. OR cx: pending WBC: pending Blood Cx: MRSA Imp: 63 year old diabetic male s/p open R TMA for wet gangrene osteomyelitis R foot 1. Intravenous abx per infectious disease 2. Will need second debridement/lavage, likely tomorrow 3. Saline flush at bedside with xeroform and DSD R foot 4. I discussed hyperbaric oxygen therapy as a strong modality to hyperoxygenate tissues to salvage remaining healthy tissue and hopefully accelerate healing. HBOT consult ordered. 5. Vascular on the case. Would order MI/PVRs 6. Will closely follow Anna Shirley DPM
--- NOTE | 2019-04-08 11:26 | PN ---
Progress Note, Physician Chief Complaint: s/p transmetatarsal amputation under MAC anesthesia History of Present Illness: post op day one - Current Medication List Current Medications: Active Medications Albuterol Sulfate (Ventolin 0.083% Nebulizer Soln -) 1 amp NEB Q4H PRN PRN Reason: SHORT OF BREATH/WHEEZING Doxazosin Mesylate (Cardura -) 4 mg PO DAILY [facility] Last Admin: 04/08/19 10:03 Dose: 4 mg Fentanyl (Sublimaze Injection -) 50 mcg IVPUSH [id number] PRN PRN Reason: PAIN-PACU ORDER X 4 DOSES ONLY Fentanyl (Sublimaze Injection -) 50 mcg IVPUSH [id number] PRN PRN Reason: PAIN-PACU ORDER X 4 DOSES ONLY Fluticasone Propionate (Flonase -) 1 spray NS DAILY [facility] Gabapentin (Neurontin -) 100 mg PO BID [facility] Last Admin: 04/08/19 10:04 Dose: 100 mg Lactated Ringer's (Lactated Ringers Solution) 1,000 mls @ 125 mls/hr IV ASDIR [facility] Last Admin: 04/07/19 22:56 Dose: Not Given Sodium Chloride (Normal Saline -) 250 mls @ 3,000 mls/hr IV PRN PRN PRN Reason: Hypotension during Dialysis Stop: 04/08/19 09:57 Sodium Chloride (Normal Saline -) 1,000 mls @ 42 mls/hr IV ASDIR [facility] Last Admin: 04/07/19 23:14 Dose: 42 mls/hr Insulin Aspart (Novolog Vial Sliding Scale -) 1 vial SQ HS [facility]; Protocol Last Admin: 04/07/19 22:56 Dose: Not Given Insulin Aspart (Novolog Vial Sliding Scale -) 1 vial SQ TIDAC [facility]; Protocol Last Admin: 04/08/19 06:27 Dose: Not Given Lidocaine (Lidoderm Patch -) 1 patch TP DAILY [facility] Last Admin: 04/08/19 10:02 Dose: 1 patch Miscellaneous (Lidoderm Patch Removal) 1 each MC DAILY@2200 [facility] Nifedipine (Procardia Xl -) 90 mg PO DAILY [facility] Last Admin: 04/08/19 10:05 Dose: 90 mg Oxycodone HCl (Roxicodone -) 5 mg PO Q4H PRN PRN Reason: PAIN LEVEL 1-5 Last Admin: 04/08/19 10:04 Dose: 5 mg Trazodone HCl 400 mg/ (Trazodone HCl 50 mg) 450 mg PO HS IGGY Last Admin: 04/07/19 23:10 Dose: 450 mg - Objective Vital Signs: Vital Signs Temperature 98.6 F 04/08/19 06:00 Pulse Rate 82 04/08/19 06:00 Respiratory Rate 20 04/08/19 06:00 Blood Pressure 105/53 L 04/08/19 06:00 O2 Sat by Pulse Oximetry (%) 92 L 04/07/19 23:00 Constitutional: Yes: Well Nourished Cardiovascular: Yes: WNL Respiratory: Yes: WNL Gastrointestinal: Yes: WNL Labs: CBC, BMP 04/08/19 10:00 INR, PTT INR 1.34 (0.83-1.09) H 04/07/19 14:15 Assessment/Plan No adverse anesthetic events, dept of anesthesiology will sign off care at this time
[2019-04-08 11:39] LABS: BLOOD UREA NITROGEN 35.4 mg/dL (7-18); CALCIUM 7.6 mg/dL (8.5-10.1); CREATININE 4.9 mg/dL (0.55-1.3); POTASSIUM 3.8 mmol/L (3.5-5.1)
[2019-04-08 12:48] LABS: ANISOCYTOSIS 2+; MACROCYTOSIS 0; PLATELET ESTIMATE NORMAL; TARGET CELLS 1+
--- NOTE | 2019-04-08 13:10 | PN ---
Progress Note, Physician History of Present Illness: stable no complaints post op awaiting for bone cx reports - Current Medication List Current Medications: Active Medications Albuterol Sulfate (Ventolin 0.083% Nebulizer Soln -) 1 amp NEB Q4H PRN PRN Reason: SHORT OF BREATH/WHEEZING Doxazosin Mesylate (Cardura -) 4 mg PO DAILY [facility] Last Admin: 04/08/19 10:03 Dose: 4 mg Fentanyl (Sublimaze Injection -) 50 mcg IVPUSH [id number] PRN PRN Reason: PAIN-PACU ORDER X 4 DOSES ONLY Fentanyl (Sublimaze Injection -) 50 mcg IVPUSH [id number] PRN PRN Reason: PAIN-PACU ORDER X 4 DOSES ONLY Fluticasone Propionate (Flonase -) 1 spray NS DAILY [facility] Gabapentin (Neurontin -) 100 mg PO BID [facility] Last Admin: 04/08/19 10:04 Dose: 100 mg Lactated Ringer's (Lactated Ringers Solution) 1,000 mls @ 125 mls/hr IV ASDIR [facility] Last Admin: 04/07/19 22:56 Dose: Not Given Sodium Chloride (Normal Saline -) 250 mls @ 3,000 mls/hr IV PRN PRN PRN Reason: Hypotension during Dialysis Stop: 04/08/19 09:57 Sodium Chloride (Normal Saline -) 1,000 mls @ 42 mls/hr IV ASDIR [facility] Last Admin: 04/07/19 23:14 Dose: 42 mls/hr Piperacillin Sod/Tazobactam (Sod 2.25 gm/ Dextrose) 50 mls @ 100 mls/hr IVPB Q8H-IV IGGY; Protocol Insulin Aspart (Novolog Vial Sliding Scale -) 1 vial SQ HS [facility]; Protocol Last Admin: 04/07/19 22:56 Dose: Not Given Insulin Aspart (Novolog Vial Sliding Scale -) 1 vial SQ TIDAC [facility]; Protocol Last Admin: 04/08/19 12:36 Dose: 2 units Lidocaine (Lidoderm Patch -) 1 patch TP DAILY [facility] Last Admin: 04/08/19 10:02 Dose: 1 patch Miscellaneous (Lidoderm Patch Removal) 1 each MC DAILY@2200 [facility] Nifedipine (Procardia Xl -) 90 mg PO DAILY [facility] Last Admin: 04/08/19 10:05 Dose: 90 mg Oxycodone HCl (Roxicodone -) 5 mg PO Q4H PRN PRN Reason: PAIN LEVEL 1-5 Last Admin: 04/08/19 10:04 Dose: 5 mg Trazodone HCl 400 mg/ (Trazodone HCl 50 mg) 450 mg PO HS [facility] Last Admin: 04/07/19 23:10 Dose: 450 mg - Objective Vital Signs: Vital Signs Temperature 98.6 F 04/08/19 06:00 Pulse Rate 82 04/08/19 06:00 Respiratory Rate 20 04/08/19 06:00 Blood Pressure 105/53 L 04/08/19 06:00 O2 Sat by Pulse Oximetry (%) 92 L 04/07/19 23:00 Constitutional: Yes: No Distress, Calm Cardiovascular: Yes: S1, S2 Respiratory: Yes: Regular, CTA Bilaterally Gastrointestinal: Yes: Normal Bowel Sounds, Soft Musculoskeletal: Yes: WNL Extremities: Yes: Other (fistula left arm) Neurological: Yes: Alert, Oriented Psychiatric: Yes: Alert, Oriented Labs: CBC, BMP 04/08/19 10:00 04/08/19 10:00 INR, PTT INR 1.34 (0.83-1.09) H 04/07/19 14:15 Assessment/Plan 61 year old male with a past medical history of DM, HTN, ESRD on dialysis (TThS) , left BKA, diabetic neuropathy, hx of MRSA bacteremia presenting for a sepsis from likely osteomyelitis of R foot. sepsis osteo r foot ,rsa bacteremia esrd htn dm plan check vanco levels tomorrow await for bone biopsy await for wound cx results repeat blood cx tomorrow rest as per the team
[2019-04-08] MEDS: FLUTICASONE PROP 0.05% 16 GM NASAL SPRAY NS SCH (13:41)
--- NOTE | 2019-04-08 14:32 | PN ---
Physical Exam: SUBJECTIVE: Patient seen and examined at the bedside. Patient stated that he has some pain in his R foot s/p surgery yesterday. States he has some appetite but not his usual. Endorses weakness. Denies cp, sob, abd pain, n/v/c/d, fever, chills, lightheadedness, dizziness, headaches. OBJECTIVE: Vital Signs Period Temp Pulse Resp BP Sys/Gutierrez Pulse Ox Last 24 Hr 98.4 F-101.5 F 75-104 16-20 105-147/53-80 92-95 GENERAL: The patient is awake, alert, and fully oriented, in no acute distress. Tired appearing HEAD: Normal with no signs of trauma. EYES: PERRL, extraocular movements intact, sclera anicteric, conjunctiva clear. ENT: oropharynx clear without exudates, moist mucous membranes. NECK: Trachea midline, full range of motion, supple. LUNGS: Breath sounds equal, clear to auscultation bilaterally, no wheezes, no crackles, no accessory muscle use. HEART: Regular rate and rhythm, S1, S2 without murmur, rubs. ABDOMEN: Soft, nontender, nondistended, normoactive bowel sounds, no guarding, no rebound, no masses. EXTREMITIES: Amputation (L-BKA). S/p R TMA, guillotine, draining serosanginous fluid. No crepitus noted. Non-palpapable pulses on the R side. Good popliteal pulse. NEUROLOGICAL: Cranial nerves II through XII grossly intact. 5/5 muscle strength upper and lower extremities, bilaterally. LBKA. PSYCH: Upset mood over current medical conditon. Laboratory Results - last 24 hr 04/07/19 04/07/19 04/07/19 11:15 14:15 18:20 WBC RBC Hgb Hct MCV MCH MCHC RDW Plt Count MPV Absolute Neuts (auto) Neutrophils % Neutrophils % (Manual) Band Neutrophils % Lymphocytes % Lymphocytes % (Manual) Monocytes % Monocytes % (Manual) Eosinophils % Eosinophils % (Manual) Basophils % Basophils % (Manual) Myelocytes % (Man) Promyelocytes % (Man) Blast Cells % (Manual) Nucleated RBC % Metamyelocytes Hypochromia Platelet Estimate Polychromasia Poikilocytosis Anisocytosis Microcytosis Macrocytosis Target Cells PT with INR 15.90 H INR 1.34 H PTT (Actin FS) 33.0 Sodium Potassium Chloride Carbon Dioxide Anion Gap BUN Creatinine Est GFR (CKD-EPI)AfAm Est GFR (CKD-EPI)NonAf POC Glucometer 35 Random Glucose Calcium Random Vancomycin Hep Bs Antigen Negative Hep C Ab Diagnostic <0.1 Blood Type Antibody Screen 04/07/19 04/07/19 04/07/19 18:34 19:12 19:14 WBC RBC Hgb Hct MCV MCH MCHC RDW Plt Count MPV Absolute Neuts (auto) Neutrophils % Neutrophils % (Manual) Band Neutrophils % Lymphocytes % Lymphocytes % (Manual) Monocytes % Monocytes % (Manual) Eosinophils % Eosinophils % (Manual) Basophils % Basophils % (Manual) Myelocytes % (Man) Promyelocytes % (Man) Blast Cells % (Manual) Nucleated RBC % Metamyelocytes Hypochromia Platelet Estimate Polychromasia Poikilocytosis Anisocytosis Microcytosis Macrocytosis Target Cells PT with INR INR PTT (Actin FS) Sodium Potassium Chloride Carbon Dioxide Anion Gap BUN Creatinine Est GFR (CKD-EPI)AfAm Est GFR (CKD-EPI)NonAf POC Glucometer 67 50 59 Random Glucose Calcium Random Vancomycin Hep Bs Antigen Hep C Ab Diagnostic Blood Type Antibody Screen 04/07/19 04/07/19 04/07/19 21:00 21:00 22:02 WBC RBC Hgb Hct MCV MCH MCHC RDW Plt Count MPV Absolute Neuts (auto) Neutrophils % Neutrophils % (Manual) Band Neutrophils % Lymphocytes % Lymphocytes % (Manual) Monocytes % Monocytes % (Manual) Eosinophils % Eosinophils % (Manual) Basophils % Basophils % (Manual) Myelocytes % (Man) Promyelocytes % (Man) Blast Cells % (Manual) Nucleated RBC % Metamyelocytes Hypochromia Platelet Estimate Polychromasia Poikilocytosis Anisocytosis Microcytosis Macrocytosis Target Cells PT with INR INR PTT (Actin FS) Sodium Potassium Chloride Carbon Dioxide Anion Gap BUN Creatinine Est GFR (CKD-EPI)AfAm Est GFR (CKD-EPI)NonAf POC Glucometer 133 Random Glucose 136 H Calcium Random Vancomycin Hep Bs Antigen Hep C Ab Diagnostic Blood Type B POSITIVE Antibody Screen Negative 04/08/19 04/08/19 04/08/19 06:01 08:53 10:00 WBC RBC Hgb Hct MCV MCH MCHC RDW Plt Count MPV Absolute Neuts (auto) Neutrophils % Neutrophils % (Manual) Band Neutrophils % Lymphocytes % Lymphocytes % (Manual) Monocytes % Monocytes % (Manual) Eosinophils % Eosinophils % (Manual) Basophils % Basophils % (Manual) Myelocytes % (Man) Promyelocytes % (Man) Blast Cells % (Manual) Nucleated RBC % Metamyelocytes Hypochromia Platelet Estimate Polychromasia Poikilocytosis Anisocytosis Microcytosis Macrocytosis Target Cells PT with INR INR PTT (Actin FS) Sodium 138 Potassium 3.8 Chloride 101 Carbon Dioxide 28 Anion Gap 8 BUN 35.4 H Creatinine 4.9 H Est GFR (CKD-EPI)AfAm 13.53 Est GFR (CKD-EPI)NonAf 11.67 POC Glucometer 64 78 Random Glucose 133 H Calcium 7.6 L Random Vancomycin Hep Bs Antigen Hep C Ab Diagnostic Blood Type Antibody Screen 04/08/19 04/08/19 04/08/19 10:00 12:13 12:27 WBC 21.6 H RBC 2.59 L Hgb 7.1 L Hct 22.2 L D MCV 85.6 MCH 27.3 MCHC 31.9 L RDW 17.1 H Plt Count 285 D MPV 8.0 Absolute Neuts (auto) 19.6 H Neutrophils % 91.1 H Neutrophils % (Manual) 76.0 Band Neutrophils % 18.3 Lymphocytes % 3.0 L Lymphocytes % (Manual) 1.9 L D Monocytes % 5.4 Monocytes % (Manual) 3 L Eosinophils % 0.2 Eosinophils % (Manual) 0.0 Basophils % 0.3 Basophils % (Manual) 0.0 Myelocytes % (Man) 0 D Promyelocytes % (Man) 0 Blast Cells % (Manual) 0 Nucleated RBC % 0 Metamyelocytes 1 D Hypochromia 2+ Platelet Estimate Normal Polychromasia 2+ Poikilocytosis 1+ Anisocytosis 2+ Microcytosis 2+ Macrocytosis 0 Target Cells 1+ PT with INR INR PTT (Actin FS) Sodium Potassium Chloride Carbon Dioxide Anion Gap BUN Creatinine Est GFR (CKD-EPI)AfAm Est GFR (CKD-EPI)NonAf POC Glucometer 162 Random Glucose Calcium Random Vancomycin 18.0 Hep Bs Antigen Hep C Ab Diagnostic Blood Type Antibody Screen Active Medications Generic Name Dose Route Start Last Admin Trade Name Freq PRN Reason Stop Dose Admin Albuterol Sulfate 1 amp 04/07/19 18:49 Ventolin 0.083% Nebulizer Soln - NEB Q4H PRN SHORT OF BREATH/WHEEZING Doxazosin Mesylate 4 mg 04/08/19 10:00 04/08/19 10:03 Cardura - PO 4 mg DAILY IGGY Administration Fentanyl 50 mcg 04/07/19 18:25 Sublimaze Injection - IVPUSH [id number] PRN PAIN-PACU ORDER X 4 DOSES ONLY Fentanyl 50 mcg 04/07/19 18:49 Sublimaze Injection - IVPUSH [id number] PRN PAIN-PACU ORDER X 4 DOSES ONLY Fluticasone Propionate 1 spray 04/08/19 10:00 04/08/19 13:41 Flonase - NS 1 spray DAILY [facility]GG[facility] Administration Gabapentin 100 mg 04/07/19 22:00 04/08/19 10:04 Neurontin - PO 100 mg BID IGGY Administration Lactated Ringer's 1,000 mls @ 125 mls/hr 04/07/19 18:30 04/07/19 22:56 Lactated Ringers Solution IV Not Given ASDIR I[facility] Sodium Chloride 250 mls @ 3,000 mls/hr 04/07/19 18:49 Normal Saline - IV 04/08/19 09:57 PRN PRN Hypotension during Dialysis Sodium Chloride 1,000 mls @ 42 mls/hr 04/07/19 18:49 04/07/19 23:14 Normal Saline - IV 42 mls/hr ASDIR IGG[facility] Administration Piperacillin Sod/Tazobactam 50 mls @ 100 mls/hr 04/08/19 18:00 Sod 2.25 gm/ Dextrose IVPB Q8H-IV [facility] Protocol Insulin Aspart 1 vial 04/07/19 22:00 04/07/19 22:56 Novolog Vial Sliding Scale - SQ Not Given HS [facility] Protocol Insulin Aspart 1 vial 04/08/19 07:00 04/08/19 12:36 Novolog Vial Sliding Scale - SQ 2 units TIDAC [facility] Administration Protocol Lidocaine 1 patch 04/08/19 10:00 04/08/19 10:02 Lidoderm Patch - TP 1 patch DAILY [facility] Administration Miscellaneous 1 each 04/08/19 22:00 Lidoderm Patch Removal MC DAILY@2200 [facility] Nifedipine 90 mg 04/08/19 10:00 04/08/19 10:05 Procardia Xl - PO 90 mg DAILY [facility] Administration Oxycodone HCl 5 mg 04/07/19 17:53 04/08/19 10:04 Roxicodone - PO 5 mg Q4H PRN Administration PAIN LEVEL 1-5 Trazodone HCl 400 mg/ 450 mg 04/07/19 22:00 04/07/19 23:10 Trazodone HCl 50 mg PO 450 mg HS IGG[facility] Administration ASSESSMENT/PLAN: Luciano Judge is a 61 year old male with a past medical history of DM, HTN, ESRD on dialysis (TThS), left BKA, diabetic neuropathy, hx of MRSA bacteremia presenting for a sepsis from likely osteomyelitis of R foot. Sepsis from Osteomyelitis - elevated WBC and febrile 100.4 - foot x-ray with emphysematous changes, deformity, lucency, destructive changes of the distal head of third metatarsal, metatarsal head, base of R third proximal phalynx consistent with osteomyelitis - continue Vanco, Zosyn - random vanco level in the morning to redose - bacteremia with blood culture growing gram + cocci in clusters, presumptive MRSA - await pathology results - await intraoperative culture results - seen by podiatry and has undergone TMA, will require washout of foot likely tomorrow - ID consulted, continue vancomycin, random vanco levels to guide treatment, today 18.0 - vascular surgery consulted, will continue to follow - ESR/CRP elevated - echo ordered to evaluate for ?endocarditis, showing normal LV function, size, function, normal EF, ?poor LV compliance, borderline aortic root dilation, trace mitral regurg, mild pericardial effusion - hyperbaric consult as per podiatry ESRD - dialysis tomorrow - avoid fluid overload - nephrology consulted, recs appreciated - continued dialysis on normal schedule HTN - continue home meds - cardio consulted, recs appreciated DM - hold Levemir 12 units qAM, due to hypoglycemic episode, may resume if glucose levels stabilize or rise - ISS - BGM - A1c 10.8 - will require tight insulin dosing in the setting of osteomyelitis - endocrinology consulted, recs appreciated ?Shoulder pain/chronic pain - methadone 2.5mg tid, confirmed with [facility] and confirmed with patient's pharmacy [facility], last ordered and dispensed on 03/13 for a 30 day course, will resume while in the hospital - pain management consulted Hx of PTSD - trazodone 450mg qhs Prophylaxis - heparin 5000 units subq bid held for the morning pending OR FEN - caution with fluids as patient in ESRD - continue to monitor electrolytes and replete as necessary, hyponatremic, NS running - renal diet post surgery, NPO after midnight Dispo - continue to monitor on Med-surg Visit type - Emergency Visit Emergency Visit: Yes ED Registration Date: 04/06/19 Care time: The patient presented to the Emergency Department on the above date and was hospitalized for further evaluation of their emergent condition. - New Patient This patient is new to me today: No - Critical Care Critical Care patient: No
--- NOTE | 2019-04-08 15:30 | PN ---
Progress Note (short form) - Note Progress Note: Renal follow up for ESRD on HD Seen and examined at the bedside s/p TMA yesterday s/p dialysis yesterday denies any sob, cp, fever or chills has pain at operative site Vital Signs Temperature 98.6 F 04/08/19 06:00 Pulse Rate 82 04/08/19 06:00 Respiratory Rate 20 04/08/19 06:00 Blood Pressure 105/53 L 04/08/19 06:00 O2 Sat by Pulse Oximetry (%) 92 L 04/07/19 23:00 Intake & Output 04/05/19 04/06/19 04/07/19 04/08/19 23:59 23:59 23:59 23:59 Intake Total 950 752 Output Total 2050 Balance -1100 752 Weight 79 kg 80.966 kg NAD awake and alert neck supple, no JVD RRR CTA soft NT/ND no LE edema CBC, BMP 04/08/19 10:00 04/08/19 10:00 Current Medications Albuterol Sulfate (Ventolin 0.083% Nebulizer Soln -) 1 amp NEB Q4H PRN PRN Reason: SHORT OF BREATH/WHEEZING Doxazosin Mesylate (Cardura -) 4 mg PO DAILY [facility] Last Admin: 04/08/19 10:03 Dose: 4 mg Fentanyl (Sublimaze Injection -) 50 mcg IVPUSH [id number] PRN PRN Reason: PAIN-PACU ORDER X 4 DOSES ONLY Fentanyl (Sublimaze Injection -) 50 mcg IVPUSH [id number] PRN PRN Reason: PAIN-PACU ORDER X 4 DOSES ONLY Fluticasone Propionate (Flonase -) 1 spray NS DAILY [facility] Last Admin: 04/08/19 13:41 Dose: 1 spray Gabapentin (Neurontin -) 100 mg PO BID [facility] Last Admin: 04/08/19 10:04 Dose: 100 mg Lactated Ringer's (Lactated Ringers Solution) 1,000 mls @ 125 mls/hr IV ASDIR [facility] Last Admin: 04/07/19 22:56 Dose: Not Given Sodium Chloride (Normal Saline -) 250 mls @ 3,000 mls/hr IV PRN PRN PRN Reason: Hypotension during Dialysis Stop: 04/08/19 09:57 Sodium Chloride (Normal Saline -) 1,000 mls @ 42 mls/hr IV ASDIR IGGY Last Admin: 04/07/19 23:14 Dose: 42 mls/hr Piperacillin Sod/Tazobactam (Sod 2.25 gm/ Dextrose) 50 mls @ 100 mls/hr IVPB Q8H-IV IGGY; Protocol Insulin Aspart (Novolog Vial Sliding Scale -) 1 vial SQ HS [facility]; Protocol Last Admin: 04/07/19 22:56 Dose: Not Given Insulin Aspart (Novolog Vial Sliding Scale -) 1 vial SQ TIDAC IGGY; Protocol Last Admin: 04/08/19 12:36 Dose: 2 units Lidocaine (Lidoderm Patch -) 1 patch TP DAILY [facility] Last Admin: 04/08/19 10:02 Dose: 1 patch Miscellaneous (Lidoderm Patch Removal) 1 each MC DAILY@2200 IGGY Nifedipine (Procardia Xl -) 90 mg PO DAILY [facility] Last Admin: 04/08/19 10:05 Dose: 90 mg Oxycodone HCl (Roxicodone -) 5 mg PO Q4H PRN PRN Reason: PAIN LEVEL 1-5 Last Admin: 04/08/19 10:04 Dose: 5 mg Trazodone HCl 400 mg/ (Trazodone HCl 50 mg) 450 mg PO HS [facility] Last Admin: 04/07/19 23:10 Dose: 450 mg 63 year old gentleman with history of ESRD on HD ([facility]), DM, PVD s/p BKA who presented from home with non-healing foot wound. 1. ESRD on HD 2. Infected foot wound 3. Anemia of CKD 4. Pseudohyponatremia 5. Metabolic acidosis 6. Leukocytosis 7. PVD 8 DM type 2 on insulin no acute need for dialysis today, next treatment planned for tomorrow follow up Vancomycin levels Vascular and podiatry follow up, may need further debridement tomorrow Wound care follow up cultures will maintain on TTS HD schedule while inpatient. Thank you Miguel Jansen DO
--- NOTE | 2019-04-08 15:36 | PN ---
Teaching Attending Note Name of Resident: Srini Adame ATTENDING PHYSICIAN STATEMENT I saw and evaluated the patient. I reviewed the resident's note and discussed the case with the resident. I agree with the resident's findings and plan as documented. SUBJECTIVE: Complains of R foot post surgical pain POD 1 s/p transmetatarsal amputation. No fever/chills. OBJECTIVE: Afebrile, Hemodynamically Stable Last Vital Signs Temp Pulse Resp BP Pulse Ox 98.6 F 82 20 105/53 L 92 L 04/08/19 06:00 04/08/19 06:00 04/08/19 06:00 04/08/19 06:00 04/07/19 23:00 General - lying in bed, complains of pain Heart - S1, S2, RRR Chest - clear to auscultation Abdomen - Soft, non-tender. Bowel Sounds normal Extremities - LLE BKA, R foot surgica site dressed. Edema+, venous stasis skin changes. Laboratory Results - last 24 hr 04/07/19 04/07/19 04/07/19 11:15 18:20 18:34 WBC RBC Hgb Hct MCV MCH MCHC RDW Plt Count MPV Absolute Neuts (auto) Neutrophils % Neutrophils % (Manual) Band Neutrophils % Lymphocytes % Lymphocytes % (Manual) Monocytes % Monocytes % (Manual) Eosinophils % Eosinophils % (Manual) Basophils % Basophils % (Manual) Myelocytes % (Man) Promyelocytes % (Man) Blast Cells % (Manual) Nucleated RBC % Metamyelocytes Hypochromia Platelet Estimate Polychromasia Poikilocytosis Anisocytosis Microcytosis Macrocytosis Target Cells Sodium Potassium Chloride Carbon Dioxide Anion Gap BUN Creatinine Est GFR (CKD-EPI)AfAm Est GFR (CKD-EPI)NonAf POC Glucometer 35 67 Random Glucose Calcium Random Vancomycin Hep Bs Antigen Negative Hep C Ab Diagnostic <0.1 Blood Type Antibody Screen 04/07/19 04/07/19 04/07/19 19:12 19:14 21:00 WBC RBC Hgb Hct MCV MCH MCHC RDW Plt Count MPV Absolute Neuts (auto) Neutrophils % Neutrophils % (Manual) Band Neutrophils % Lymphocytes % Lymphocytes % (Manual) Monocytes % Monocytes % (Manual) Eosinophils % Eosinophils % (Manual) Basophils % Basophils % (Manual) Myelocytes % (Man) Promyelocytes % (Man) Blast Cells % (Manual) Nucleated RBC % Metamyelocytes Hypochromia Platelet Estimate Polychromasia Poikilocytosis Anisocytosis Microcytosis Macrocytosis Target Cells Sodium Potassium Chloride Carbon Dioxide Anion Gap BUN Creatinine Est GFR (CKD-EPI)AfAm Est GFR (CKD-EPI)NonAf POC Glucometer 50 59 Random Glucose Calcium Random Vancomycin Hep Bs Antigen Hep C Ab Diagnostic Blood Type B POSITIVE Antibody Screen Negative 04/07/19 04/07/19 04/08/19 21:00 22:02 06:01 WBC RBC Hgb Hct MCV MCH MCHC RDW Plt Count MPV Absolute Neuts (auto) Neutrophils % Neutrophils % (Manual) Band Neutrophils % Lymphocytes % Lymphocytes % (Manual) Monocytes % Monocytes % (Manual) Eosinophils % Eosinophils % (Manual) Basophils % Basophils % (Manual) Myelocytes % (Man) Promyelocytes % (Man) Blast Cells % (Manual) Nucleated RBC % Metamyelocytes Hypochromia Platelet Estimate Polychromasia Poikilocytosis Anisocytosis Microcytosis Macrocytosis Target Cells Sodium Potassium Chloride Carbon Dioxide Anion Gap BUN Creatinine Est GFR (CKD-EPI)AfAm Est GFR (CKD-EPI)NonAf POC Glucometer 133 64 Random Glucose 136 H Calcium Random Vancomycin Hep Bs Antigen Hep C Ab Diagnostic Blood Type Antibody Screen 04/08/19 04/08/19 04/08/19 08:53 10:00 10:00 WBC 21.6 H RBC 2.59 L Hgb 7.1 L Hct 22.2 L D MCV 85.6 MCH 27.3 MCHC 31.9 L RDW 17.1 H Plt Count 285 D MPV 8.0 Absolute Neuts (auto) 19.6 H Neutrophils % 91.1 H Neutrophils % (Manual) 76.0 Band Neutrophils % 18.3 Lymphocytes % 3.0 L Lymphocytes % (Manual) 1.9 L D Monocytes % 5.4 Monocytes % (Manual) 3 L Eosinophils % 0.2 Eosinophils % (Manual) 0.0 Basophils % 0.3 Basophils % (Manual) 0.0 Myelocytes % (Man) 0 D Promyelocytes % (Man) 0 Blast Cells % (Manual) 0 Nucleated RBC % 0 Metamyelocytes 1 D Hypochromia 2+ Platelet Estimate Normal Polychromasia 2+ Poikilocytosis 1+ Anisocytosis 2+ Microcytosis 2+ Macrocytosis 0 Target Cells 1+ Sodium 138 Potassium 3.8 Chloride 101 Carbon Dioxide 28 Anion Gap 8 BUN 35.4 H Creatinine 4.9 H Est GFR (CKD-EPI)AfAm 13.53 Est GFR (CKD-EPI)NonAf 11.67 POC Glucometer 78 Random Glucose 133 H Calcium 7.6 L Random Vancomycin Hep Bs Antigen Hep C Ab Diagnostic Blood Type Antibody Screen 04/08/19 04/08/19 12:13 12:27 WBC RBC Hgb Hct MCV MCH MCHC RDW Plt Count MPV Absolute Neuts (auto) Neutrophils % Neutrophils % (Manual) Band Neutrophils % Lymphocytes % Lymphocytes % (Manual) Monocytes % Monocytes % (Manual) Eosinophils % Eosinophils % (Manual) Basophils % Basophils % (Manual) Myelocytes % (Man) Promyelocytes % (Man) Blast Cells % (Manual) Nucleated RBC % Metamyelocytes Hypochromia Platelet Estimate Polychromasia Poikilocytosis Anisocytosis Microcytosis Macrocytosis Target Cells Sodium Potassium Chloride Carbon Dioxide Anion Gap BUN Creatinine Est GFR (CKD-EPI)AfAm Est GFR (CKD-EPI)NonAf POC Glucometer 162 Random Glucose Calcium Random Vancomycin 18.0 Hep Bs Antigen Hep C Ab Diagnostic Blood Type Antibody Screen Current Medications Generic Name Dose Route Start Last Admin Trade Name Freq PRN Reason Stop Dose Admin Albuterol Sulfate 1 amp 04/07/19 18:49 Ventolin 0.083% Nebulizer Soln - NEB Q4H PRN SHORT OF BREATH/WHEEZING Doxazosin Mesylate 4 mg 04/08/19 10:00 04/08/19 10:03 Cardura - PO 4 mg DAILY IGGY Administration Fentanyl 50 mcg 04/07/19 18:25 Sublimaze Injection - IVPUSH [id number] PRN PAIN-PACU ORDER X 4 DOSES ONLY Fentanyl 50 mcg 04/07/19 18:49 Sublimaze Injection - IVPUSH [id number] PRN PAIN-PACU ORDER X 4 DOSES ONLY Fluticasone Propionate 1 spray 04/08/19 10:00 04/08/19 13:41 Flonase - NS 1 spray DAILY IGGY Administration Gabapentin 100 mg 04/07/19 22:00 04/08/19 10:04 Neurontin - PO 100 mg BID IGGY Administration Lactated Ringer's 1,000 mls @ 125 mls/hr 04/07/19 18:30 04/07/19 22:56 Lactated Ringers Solution IV Not Given ASDIR IGGY Sodium Chloride 250 mls @ 3,000 mls/hr 04/07/19 18:49 Normal Saline - IV 04/08/19 09:57 PRN PRN Hypotension during Dialysis Sodium Chloride 1,000 mls @ 42 mls/hr 04/07/19 18:49 04/07/19 23:14 Normal Saline - IV 42 mls/hr ASDIR IGGY Administration Piperacillin Sod/Tazobactam 50 mls @ 100 mls/hr 04/08/19 18:00 Sod 2.25 gm/ Dextrose IVPB Q8H-IV IGGY Protocol Insulin Aspart 1 vial 04/07/19 22:00 04/07/19 22:56 Novolog Vial Sliding Scale - SQ Not Given HS IGG[facility] Protocol Insulin Aspart 1 vial 04/08/19 07:00 04/08/19 12:36 Novolog Vial Sliding Scale - SQ 2 units TIDAC IGGY Administration Protocol Lidocaine 1 patch 04/08/19 10:00 04/08/19 10:02 Lidoderm Patch - TP 1 patch DAILY IGGY Administration Miscellaneous 1 each 04/08/19 22:00 Lidoderm Patch Removal MC DAILY@2200 IGGY Nifedipine 90 mg 04/08/19 10:00 04/08/19 10:05 Procardia Xl - PO 90 mg DAILY IGGY Administration Oxycodone HCl 5 mg 04/07/19 17:53 04/08/19 10:04 Roxicodone - PO 5 mg Q4H PRN Administration PAIN LEVEL 1-5 Trazodone HCl 400 mg/ 450 mg 04/07/19 22:00 04/07/19 23:10 Trazodone HCl 50 mg PO 450 mg HS IGGY Administration Home Medications Medication Instructions Recorded Albuterol 0.083% Nebulizer Coretta 1 amp NEB Q4H PRN #120 amp 08/23/17 [Ventolin 0.083% Nebulizer Soln -] Fluticasone Prop 0.05% Nasal 1 - 2 spray NS DAILY #1 spray.pump 08/23/17 [Flonase -] Doxazosin Mesylate [Cardura -] 4 mg PO DAILY tablet 10/06/17 Gabapentin [Neurontin -] 100 mg PO BID capsule 10/06/17 Insulin Sliding Scale [Novolog 1 vial SQ ACHS units 10/06/17 Vial Sliding Scale -] Lidocaine 5% Patch [Lidoderm -] 1 patch TP DAILY patch 10/06/17 Lidocaine Patch Removal [Lidoderm 1 each MC DAILY@2200 each 10/06/17 Patch Removal] Insulin (Levemir) [Levemir Vial] 12 unit SQ DAILY@0700 04/07/19 Nifedipine ER [Procardia XL -] 90 mg PO DAILY 04/07/19 traZODone HCL [Desyrel -] 450 mg PO HS 04/07/19 ASSESSMENT/PLAN: 63 year old male with PMhx of ESRD on HD (TTS), IDDM, HTN, PVD s/p L BKA, Diabetic neuropathy, prior h/o MRSA bacteremia 09/2017 suspected from HD catheter , Right IJ thrombus in 09/2017 (suspected catheter related) admitted with progressive right foot swelling, redness, foul smelling discharge, chills. Right foot xray: soft tissue swelling with soft tissue emphysematous, deformities consistent with osteomyelitis noted 1. Sepsis secondary to R Foot Osteomyelitis/Cellulitis with Bacteremia POD 1 s/p transmetatarsal amputation Likely MRSA Bacteremia - source ?foot versus AVF Still febrile, Tmax overnight 101.5 Receiving IV Zosyn/Vancomycin Echo ordered and Cardiology consulted for TTE to exclude endocarditis. Podiatry to return to OR tomorrow for surgical wound washout. NPO MN. 2. ESRD on HD TTS via UE AVF No signs of infection at fistula site On IV Vancomycin Repeat Blood Cx 3. DM 2 - uncontrolled, A1C 10.8. Hyperglycemia sec to infection/poor compliance Maintain on Novolog sliding scale. Levemir held as patient will be NPO from midnight 4. HTN - Continue Nifedipine, Doxazosin 5. ESRD on HD TTS - Nephrology following. 6. Normocytic Anemia likely sec to ESRD - Procrit as per Nephrology. Will send Anemia work-up 7. Chronic Pain Syndrome - apparently on methadone - dose needs verification DVT Px - Heparin SQ
--- NOTE | 2019-04-08 15:45 | ECHO ---
Name: FRIEDA, MARIAJOSE Exam:Adult Echocardiogram Study Date: 04/08/2019 02:47 PM Age: 63 yrs Height: 76 in Weight: 179 lb BSA: 2.1 m2 MMode/2D Measurements & Calculations IVSd: 1.2 cm Ao root diam: 3.9 cm LVIDd: 4.8 cm LA dimension: 2.6 cm LVIDs: 3.4 cm LVPWd: 1.1 cm LVPWs: 1.7 cm EDV(Teich): 106.3 ml ESV(Teich): 48.7 ml LVOT diam: 2.1 cm LAV (MOD-bp): 89.4 ml RV S Johan: 19.1 cm/sec Doppler Measurements & Calculations MV E max johan: 89.7 cm/sec Ao V2 max: 162.3 cm/sec MV A max johan: 111.1 cm/sec Ao max P.5 mmHg MV E/A: 0.81 CLAUDIA(V,D): 3.0 cm2 MV dec time: 0.13 sec LV V1 max P.6 mmHg PA V2 max: 127.6 cm/sec LV V1 max: 137.8 cm/sec PA max P.5 mmHg Med Peak E' Johan: 7.6 cm/sec Med E/e': 11.8 Lat Peak E' Johan: 9.8 cm/sec Lat E/e': 9.2 Procedure A two-dimensional transthoracic echocardiogram with color flow and Doppler was performed. Left Ventricle The left ventricular size, thickness and function are normal. The left ventricular ejection fraction is normal. E/A reversal consistent with but not diagnostic of poor LV compliance. The left ventricular w all motion is normal. Right Ventricle The right ventricle is normal in size and function. Atria Normal left and right atrial size and function. Mitral Valve The mitral valve is not well visualized. There is mild mitral valve thickening. There is no mitral va lve stenosis. There is trace mitral regurgitation. Tricuspid Valve The tricuspid valve is not well visualized. There is mild tricuspid valve thickening. There is no tri cuspid stenosis. There was insufficient TR detected to calculate RV systolic pressure. Aortic Valve The aortic valve is not well visualized. No hemodynamically significant valvular aortic stenosis. No aortic regurgitation is present. Pulmonic Valve The pulmonic valve is not well visualized. Great Vessels Borderline aortic root dilatation. Pericardium/Pleura There is a mild pericardial effusion. Interpretation Summary Clinical correlation is recommended. The left ventricular size, thickness and function are normal There is a mild pericardial effusion. The left ventricular ejection fraction is normal. The left ventricular wall motion is normal. E/A reversal consistent with but not diagnostic of poor LV compliance There is trace mitral regurgitation. There was insufficient TR detected to calculate RV systolic pressure. Borderline aortic root dilatation. Clinical correlation is recommended. MD Dennis Bauer 04/08/2019 03:45 PM
--- NOTE | 2019-04-08 16:36 | CON.CARD ---
Consult Consult Specialty:: Cardiology Referred by:: Hospitalist Medicine Reason for Consultation:: MRSA bacteremia - History of Present Illness History of Present Illness: This is a 63 year old AA gentleman with PMhx of ESRD on HD (TTS) secondary to suspected diabetic nephropathy, DM, Hypertension, PVD s/p left BKA who presented with right foot infection after toe injury 6 weeks ago. Reports noting an ulcer over this 4th toe a week after the initial injury. Pt was seen by his PCP who urged him to go to the ER, but did not come for evaluation. States he has been caring for the ulcer at home with NS irrigation and applying Bacitracin ointment. Ulcer has significantly worsened over the past week. Endorses chills and subjective fevers. Denies n/v/d, cp/sob. Reports blood purulent drainage from his foot wound s/p right TMA. At baseline pt ambulates with use of prosthesis on LLE without issue. Denies any ulcerations to L BKA stump or issues with prosthesis. - History Source History Provided By: Patient Limitations to Obtaining History: No Limitations - Past Medical History [employer]: Yes: Peripheral Neuropathy Cardio/Vascular: Yes: HTN Gastrointestinal: Yes: GERD Renal/: Yes: Renal Failure, Renal Inusuff, Hemodialysis Infectious Disease: Yes: Other (osteomyelitis) Psych: Yes: Depression Musculoskeletal: Yes: Other (chronic pain) Rheumatology: Yes: Other (history of osteomyelitis) Endocrine: Yes: Diabetes Mellitus - Past Surgical History Past Surgical History: Yes: Amputation (transmetatarsal of Left foot) - Alcohol/Substance Use Hx Alcohol Use: No Number of Drinks Daily: 2 (weekends) History of Substance Use: reports: None - Smoking History Smoking history: Former smoker Have you smoked in the past 12 months: Yes Aproximately how many cigarettes per day: 1 If you are a former smoker, when did you quit?: FEB 2019 - Social History Usual Living Arrangement: Alone ADL: Support Services History of Recent Travel: No Home Medications - Allergies Allergies/Adverse Reactions: Allergies Allergy/AdvReac Type Severity Reaction Status Date / Time shellfish derived Allergy Severe "HIVES" Verified 03/18/17 14:03 No Known Drug Allergies Allergy Verified 03/18/17 14:03 - Home Medications Home Medications: Ambulatory Orders Albuterol 0.083% Nebulizer Coretta [Ventolin 0.083% Nebulizer Soln -] 1 amp NEB Q4H PRN #120 amp 08/23/17 Fluticasone Prop 0.05% Nasal [Flonase -] 1 - 2 spray NS DAILY #1 spray.pump Doxazosin Mesylate [Cardura -] 4 mg PO DAILY tablet 10/06/17 Gabapentin [Neurontin -] 100 mg PO BID capsule 10/06/17 Insulin Sliding Scale [Novolog Vial Sliding Scale -] 1 vial SQ ACHS units 10/06 Lidocaine 5% Patch [Lidoderm -] 1 patch TP DAILY patch 10/06/17 Lidocaine Patch Removal [Lidoderm Patch Removal] 1 each MC DAILY@2200 each 02/13 Insulin (Levemir) [Levemir Vial] 12 unit SQ DAILY@0700 04/07/19 Nifedipine ER [Procardia XL -] 90 mg PO DAILY 04/07/19 traZODone HCL [Desyrel -] 450 mg PO HS 04/07/19 Review of Systems - Review of Systems Musculoskeletal: reports: Extremity Pain Vital Signs: Vital Signs Temperature 99.6 F 04/08/19 14:00 Pulse Rate 94 H 04/08/19 14:00 Respiratory Rate 18 04/08/19 14:00 Blood Pressure 120/49 L 04/08/19 14:00 O2 Sat by Pulse Oximetry (%) 92 L 04/07/19 23:00 Constitutional: Yes: No Distress, Calm Neck: Yes: Supple Respiratory: Yes: Regular, CTA Bilaterally Gastrointestinal: Yes: Normal Bowel Sounds, Soft Cardiovascular: Yes: Regular Rate and Rhythm JVD: No Carotid Bruit: No Heart Sounds: Yes: S1, S2 Murmur: Yes: Systolic Murmur, Grade 1 Extremities: Yes: Amputation (Left BKA, right TMA) Edema: No - Other Data Labs, Other Data: CBC, BMP 04/08/19 10:00 04/08/19 10:00 INR, PTT INR 1.34 (0.83-1.09) H 04/07/19 14:15 NSR @ 85 PRWP Echo: Report Reviewed Ejection Fraction %: LVEF > or = 40 % Imaging - Results Chest X-ray: Report Reviewed (NAD) X-ray: Report Reviewed (Right foot osteomyelitis) Problem List - Problems (1) Cellulitis of right foot Code(s): L03.115 - CELLULITIS OF RIGHT LOWER LIMB (2) ESRD (end stage renal disease) on dialysis Code(s): N18.6 - END STAGE RENAL DISEASE; Z99.2 - DEPENDENCE ON RENAL DIALYSIS (3) Uncontrolled diabetes mellitus Code(s): E11.65 - TYPE 2 DIABETES MELLITUS WITH HYPERGLYCEMIA Qualifiers: Diabetes mellitus type: type 2 Glycemic state: with hyperglycemia Qualified Code(s): E11.65 - Type 2 diabetes mellitus with hyperglycemia (4) Anemia Code(s): D64.9 - ANEMIA, UNSPECIFIED Qualifiers: Anemia type: due to chronic kidney disease Chronic kidney disease stage: on chronic dialysis Qualified Code(s): N18.6 - End stage renal disease; D63.1 - Anemia in chronic kidney disease; Z99.2 - Dependence on renal dialysis (5) Foot infection Code(s): L08.9 - LOCAL INFECTION OF THE SKIN AND SUBCUTANEOUS TISSUE, UNSP (6) Amputation, below knee, unilateral, traumatic Code(s): S88.119A - COMPLETE TRAUM AMP AT [facility] KN & ANKL, UNSP LOW LEG, INIT Qualifiers: Encounter type: subsequent encounter Laterality: left Qualified Code(s): S88.112D - Complete traumatic amputation at level between knee and ankle, left lower leg, subsequent encounter (7) Bacteremia due to Gram-positive bacteria Code(s): R78.81 - BACTEREMIA (8) ESRD (end stage renal disease) Code(s): N18.6 - END STAGE RENAL DISEASE (9) Peripheral vascular disease due to secondary diabetes Code(s): E13.51 - OTH DIABETES W DIABETIC PERIPHERAL ANGIOPATHY W/O GANGRENE (10) Diabetic neuropathy Code(s): E11.40 - TYPE 2 DIABETES MELLITUS WITH DIABETIC NEUROPATHY, UNSP Qualifiers: Diabetes mellitus type: type 2 Diabetes mellitus complication detail: diabetic polyneuropathy Qualified Code(s): E11.42 - Type 2 diabetes mellitus with diabetic polyneuropathy (11) Osteomyelitis Code(s): M86.9 - OSTEOMYELITIS, UNSPECIFIED Qualifiers: Osteomyelitis type: other chronic Osteomyelitis location: foot (12) Type 2 diabetes mellitus with foot ulcer Code(s): E11.621 - TYPE 2 DIABETES MELLITUS WITH FOOT ULCER; L97.509 - NON- PRESSURE CHRONIC ULCER OTH PRT UNSP FOOT W UNSP SEVERITY Qualifiers: Diabetes mellitus terminal gauger supervisor insulin use: with terminal gauger supervisor use Qualified Code( s): E11.621 - Type 2 diabetes mellitus with foot ulcer; L97.509 - Non-pressure chronic ulcer of other part of unspecified foot with unspecified severity; Z79.4 - terminal carman (current) use of insulin Assessment/Plan 10/15/2018 Echo: Mod cLVH with normal LV and RV size and fxn, tr-mild MR 09/30/2017 HCAKA: Normal biventricular size and fxn, mild AR, RI, MR, no SIS thrombus or vegetations 1. MRSA bacteremia from likely osteomyelitis of R foot s/p open transmetatarsal amputation POD#1 2. ESRD on HD, suspected diabetic nephropathy 3. Moderate pericardial effusion referable to uremic pericarditis since resolved 4. Insulin-dependent Type 2 DM 5. HTN/HCVD 6. PAD 7. Anemia of chronic kidney disease 8. H/o Right IJ/SCV thrombus probably catheter related 9. PAD s/p left BKA PLAN: 1. Vanco course per ID, wound care, HBO2, repeat surveillance cx demonstrating clearance. Await bone biopsy 2. Continue Lopressor 50 bid, Cardura 4 qd, Procardia XL 90 qd 3. Thank you for consultative opportunity
[2019-04-08] MEDS ORDERED: DEXTROSE 5%-WATER - 50 ML IVPB ONE (17:02)
[2019-04-08] MEDS ORDERED: PIPERACILLIN/TAZOBACTAM 2.25 GM VIAL IVPB ONE (17:02)
[2019-04-08] MEDS: METHADONE HCL 5 MG TABLET PO SCH ×2 (17:40→23:09)
[2019-04-08] MEDS: PIPERACILLIN/TAZOB 2.25 GM 2.25 GM in DEXTROSE 5%-WATER - 50 ML IVPB SCH (17:41)
[2019-04-08] MEDS ORDERED: HEPARIN NA (PORCINE) 5,000 UNITS/ML 1ML VIAL SQ SCH (22:00)
[2019-04-08] MEDS ORDERED: LIDOCAINE PATCH REMOVAL MC SCH ×2 (22:00)
[2019-04-08] MEDS ORDERED: traZODone HCL 50 MG TABLET (FP) ONE (22:51)
[2019-04-08] MEDS ORDERED: traZODone HCL 100 MG TABLET (FP) ONE (22:51)
[2019-04-08] MEDS: TRAZODONE HCL PO SCH (22:58)
[2019-04-08] MEDS: LACTATED RINGERS SOLUTION 1,000 ML IV SCH (23:12)
[2019-04-09] MEDS ORDERED: PIPERACILLIN/TAZOBACTAM 2.25 GM VIAL IVPB ONE ×2 (02:30→08:57)
[2019-04-09] MEDS ORDERED: DEXTROSE 5%-WATER - 50 ML IVPB ONE ×2 (02:30→08:57)
[2019-04-09] MEDS: PIPERACILLIN/TAZOB 2.25 GM 2.25 GM in DEXTROSE 5%-WATER - 50 ML IVPB SCH ×2 (02:37→09:41)
[2019-04-09] MEDS: INSULIN SLIDING SCALE (NOVOLOG) 1 VIAL SQ SCH ×2 (06:45→12:00)
[2019-04-09] MEDS: METHADONE HCL 5 MG TABLET PO SCH ×3 (06:45→22:17)
[2019-04-09] MEDS ORDERED: PETROLATUM, WHITE 30 GM TUBE TP PRN ×2 (09:26→20:07)
[2019-04-09] MEDS: GABAPENTIN 100 MG CAPSULE (FP) PO SCH ×2 (09:46→22:19)
--- NOTE | 2019-04-09 09:47 | PN ---
Progress Note, Physician History of Present Illness: stable no new issues patient going for surgery this morning - Current Medication List Current Medications: Active Medications Albuterol Sulfate (Ventolin 0.083% Nebulizer Soln -) 1 amp NEB Q4H PRN PRN Reason: SHORT OF BREATH/WHEEZING Doxazosin Mesylate (Cardura -) 4 mg PO DAILY [facility] Last Admin: 04/08/19 10:03 Dose: 4 mg Fluticasone Propionate (Flonase -) 1 spray NS DAILY [facility] Last Admin: 04/08/19 13:41 Dose: 1 spray Gabapentin (Neurontin -) 100 mg PO BID [facility] Last Admin: 04/08/19 23:11 Dose: Not Given Heparin Sodium (Porcine) (Heparin -) 5,000 unit SQ BID [facility] Last Admin: 04/08/19 23:11 Dose: Not Given Lactated Ringer's (Lactated Ringers Solution) 1,000 mls @ 125 mls/hr IV ASDIR [facility] Last Admin: 04/08/19 23:12 Dose: 125 mls/hr Piperacillin Sod/Tazobactam (Sod 2.25 gm/ Dextrose) 50 mls @ 100 mls/hr IVPB Q8H-IV IGGY; Protocol Last Admin: 04/09/19 09:41 Dose: 100 mls/hr Sodium Chloride (Normal Saline -) 250 mls @ 3,000 mls/hr IV PRN PRN PRN Reason: Hypotension during Dialysis Stop: 04/09/19 15:30 Insulin Aspart (Novolog Vial Sliding Scale -) 1 vial SQ HS [facility]; Protocol Last Admin: 04/08/19 23:12 Dose: Not Given Insulin Aspart (Novolog Vial Sliding Scale -) 1 vial SQ TIDAC [facility]; Protocol Last Admin: 04/09/19 06:45 Dose: Not Given Lidocaine (Lidoderm Patch -) 1 patch TP DAILY [facility] Last Admin: 04/08/19 10:02 Dose: 1 patch Methadone HCl (Dolophine -) 2.5 mg PO TID [facility] Last Admin: 04/09/19 06:45 Dose: Not Given Miscellaneous (Lidoderm Patch Removal) 1 each MC DAILY@2200 [facility] Last Admin: 04/08/19 23:20 Dose: 1 each Nifedipine (Procardia Xl -) 90 mg PO DAILY [facility] Last Admin: 04/08/19 10:05 Dose: 90 mg Petrolatum (Vaseline) 1 applic TP DAILY PRN PRN Reason: DRY SKIN Last Admin: 04/09/19 09:42 Dose: 1 applic Trazodone HCl 400 mg/ (Trazodone HCl 50 mg) 450 mg PO HS IGGY Last Admin: 04/08/19 22:58 Dose: 450 mg Vancomycin HCl (Vancomycin (Pre-Docked)) 1,000 mg IVPB ONCE ONE; Protocol Stop: 04/09/19 09:01 - Objective Vital Signs: Vital Signs Temperature 98 F 04/09/19 06:00 Pulse Rate 96 H 04/09/19 06:00 Respiratory Rate 18 04/09/19 06:00 Blood Pressure 122/55 L 04/09/19 06:00 O2 Sat by Pulse Oximetry (%) 92 L 04/08/19 21:00 Constitutional: Yes: No Distress, Calm Cardiovascular: Yes: S1, S2 Respiratory: Yes: Regular, CTA Bilaterally Gastrointestinal: Yes: Normal Bowel Sounds, Soft Musculoskeletal: Yes: WNL Extremities: Yes: Other Wound/Incision: Yes: Dressing Dry and Intact Neurological: Yes: Alert, Oriented Psychiatric: Yes: Alert, Oriented Labs: CBC, BMP 04/08/19 10:00 04/08/19 10:00 INR, PTT INR 1.34 (0.83-1.09) H 04/07/19 14:15 Assessment/Plan 61 year old male with a past medical history of DM, HTN, ESRD on dialysis (TThS) , left BKA, diabetic neuropathy, hx of MRSA bacteremia, presenting for a sepsis from likely osteomyelitis of R foot. sepsis osteo r foot ,rsa bacteremia esrd htn dm plan will send stat blood cx wound care for or today rest as per the team
[2019-04-09 10:07] LABS: BASO % 0.6 % (0-2.0); EOS % 0.1 % (0-4.5); HEMATOCRIT 23.3 % (35.4-49); HEMOGLOBIN 7.2 GM/dL (11.7-16.9); LYMPH % 2.9 % (8-40); MCHC 30.9 g/dl (32.0-35.9); MEAN CELL VOLUME 87.3 fl (80-96); MONO % 3.7 % (3.8-10.2); NEUT % 92.7 % (42.8-82.8); PLATELET COUNT 325 K/MM3 (134-434); RBC 2.67 M/mm3 (4.00-5.60); RDW 17.5 % (11.9-15.9); WHITE BLOOD COUNT 27.4 K/mm3 (4.0-10.0)
[2019-04-09] MEDS ORDERED: SODIUM CHLORIDE 1,000 ML IV SCH ×3 (10:15→17:25)
[2019-04-09 10:37] LABS: ANISOCYTOSIS 2+; INR 1.39 (0.83-1.09); PLATELET ESTIMATE NORMAL; PROTHROMBIN TIME (PATIENT) 16.4 SEC (9.7-13.0)
--- NOTE | 2019-04-09 10:37 | PN ---
Progress Note, Physician History of Present Illness: Plan for second debridement/lavage today. - Current Medication List Current Medications: Active Medications Albuterol Sulfate (Ventolin 0.083% Nebulizer Soln -) 1 amp NEB Q4H PRN PRN Reason: SHORT OF BREATH/WHEEZING Doxazosin Mesylate (Cardura -) 4 mg PO DAILY [facility] Last Admin: 04/08/19 10:03 Dose: 4 mg Fluticasone Propionate (Flonase -) 1 spray NS DAILY [facility] Last Admin: 04/08/19 13:41 Dose: 1 spray Gabapentin (Neurontin -) 100 mg PO BID [facility] Last Admin: 04/09/19 09:46 Dose: Not Given Heparin Sodium (Porcine) (Heparin -) 5,000 unit SQ BID [facility] Last Admin: 04/08/19 23:11 Dose: Not Given Piperacillin Sod/Tazobactam (Sod 2.25 gm/ Dextrose) 50 mls @ 100 mls/hr IVPB Q8H-IV IGGY; Protocol Last Admin: 04/09/19 09:41 Dose: 100 mls/hr Sodium Chloride (Normal Saline -) 250 mls @ 3,000 mls/hr IV PRN PRN PRN Reason: Hypotension during Dialysis Stop: 04/09/19 15:30 Sodium Chloride (Normal Saline -) 1,000 mls @ 75 mls/hr IV ASDIR IGGY Insulin Aspart (Novolog Vial Sliding Scale -) 1 vial SQ HS [facility]; Protocol Last Admin: 04/08/19 23:12 Dose: Not Given Insulin Aspart (Novolog Vial Sliding Scale -) 1 vial SQ TIDAC [facility]; Protocol Last Admin: 04/09/19 06:45 Dose: Not Given Lidocaine (Lidoderm Patch -) 1 patch TP DAILY [facility] Last Admin: 04/08/19 10:02 Dose: 1 patch Methadone HCl (Dolophine -) 2.5 mg PO TID [facility] Last Admin: 04/09/19 06:45 Dose: Not Given Miscellaneous (Lidoderm Patch Removal) 1 each MC DAILY@2200 [facility] Last Admin: 04/08/19 23:20 Dose: 1 each Nifedipine (Procardia Xl -) 90 mg PO DAILY [facility] Last Admin: 04/08/19 10:05 Dose: 90 mg Petrolatum (Vaseline) 1 applic TP DAILY PRN PRN Reason: DRY SKIN Last Admin: 04/09/19 09:42 Dose: 1 applic Trazodone HCl 400 mg/ (Trazodone HCl 50 mg) 450 mg PO HS IGGY Last Admin: 04/08/19 22:58 Dose: 450 mg Vancomycin HCl (Vancomycin (Pre-Docked)) 1,000 mg IVPB ONCE ONE; Protocol Stop: 04/09/19 09:01 - Objective Vital Signs: Vital Signs Temperature 98 F 04/09/19 06:00 Pulse Rate 96 H 04/09/19 06:00 Respiratory Rate 18 04/09/19 06:00 Blood Pressure 122/55 L 04/09/19 06:00 O2 Sat by Pulse Oximetry (%) 92 L 04/08/19 21:00 Constitutional: Yes: No Distress, Calm Neck: Yes: Supple Cardiovascular: Yes: Regular Rate and Rhythm Respiratory: Yes: Regular, CTA Bilaterally Gastrointestinal: Yes: Normal Bowel Sounds, Soft Extremities: Yes: Amputation (Left BKA, right TMA) Edema: No Wound/Incision: Yes: Dressing Dry and Intact Labs: CBC, BMP 04/09/19 09:30 INR, PTT INR 1.34 (0.83-1.09) H 04/07/19 14:15 Problem List - Problems (1) Cellulitis of right foot Code(s): L03.115 - CELLULITIS OF RIGHT LOWER LIMB (2) ESRD (end stage renal disease) on dialysis Code(s): N18.6 - END STAGE RENAL DISEASE; Z99.2 - DEPENDENCE ON RENAL DIALYSIS (3) Uncontrolled diabetes mellitus Code(s): E11.65 - TYPE 2 DIABETES MELLITUS WITH HYPERGLYCEMIA Qualifiers: Diabetes mellitus type: type 2 Glycemic state: with hyperglycemia Qualified Code(s): E11.65 - Type 2 diabetes mellitus with hyperglycemia (4) Anemia Code(s): D64.9 - ANEMIA, UNSPECIFIED Qualifiers: Anemia type: due to chronic kidney disease Chronic kidney disease stage: on chronic dialysis Qualified Code(s): N18.6 - End stage renal disease; D63.1 - Anemia in chronic kidney disease; Z99.2 - Dependence on renal dialysis (5) Foot infection Code(s): L08.9 - LOCAL INFECTION OF THE SKIN AND SUBCUTANEOUS TISSUE, UNSP (6) Amputation, below knee, unilateral, traumatic Code(s): S88.119A - COMPLETE TRAUM AMP AT LEV BETW KN & ANKL, UNSP LOW LEG, INIT Qualifiers: Encounter type: subsequent encounter Laterality: left Qualified Code(s): S88.112D - Complete traumatic amputation at level between knee and ankle, left lower leg, subsequent encounter (7) Bacteremia due to Gram-positive bacteria Code(s): R78.81 - BACTEREMIA (8) ESRD (end stage renal disease) Code(s): N18.6 - END STAGE RENAL DISEASE (9) Peripheral vascular disease due to secondary diabetes Code(s): E13.51 - OTH DIABETES W DIABETIC PERIPHERAL ANGIOPATHY W/O GANGRENE (10) Diabetic neuropathy Code(s): E11.40 - TYPE 2 DIABETES MELLITUS WITH DIABETIC NEUROPATHY, UNSP Qualifiers: Diabetes mellitus type: type 2 Diabetes mellitus complication detail: diabetic polyneuropathy Qualified Code(s): E11.42 - Type 2 diabetes mellitus with diabetic polyneuropathy (11) Osteomyelitis Code(s): M86.9 - OSTEOMYELITIS, UNSPECIFIED Qualifiers: Osteomyelitis type: other chronic Osteomyelitis location: foot (12) Type 2 diabetes mellitus with foot ulcer Code(s): E11.621 - TYPE 2 DIABETES MELLITUS WITH FOOT ULCER; L97.509 - NON- PRESSURE CHRONIC ULCER OTH PRT UNSP FOOT W UNSP SEVERITY Qualifiers: Diabetes mellitus termite helper insulin use: with fci use Qualified Code( s): E11.621 - Type 2 diabetes mellitus with foot ulcer; L97.509 - Non-pressure chronic ulcer of other part of unspecified foot with unspecified severity; Z79.4 - jail (current) use of insulin Assessment/Plan 10/15/2018 Echo: Mod cLVH with normal LV and RV size and fxn, tr-mild MR 09/30/2017 CHAKA: Normal biventricular size and fxn, mild [place], [place], MR, no SIS thrombus or vegetations 1. MRSA bacteremia from osteomyelitis of R foot s/p open transmetatarsal amputation POD#2 2. ESRD on HD TThS, suspected diabetic nephropathy 3. Moderate pericardial effusion referable to uremic pericarditis since resolved 4. Insulin-dependent Type 2 DM c/b neuropathy 5. HTN/HCVD 6. PAD 7. Anemia of chronic kidney disease 8. H/o Right IJ/SCV thrombus probably catheter related 9. PAD s/p left BKA PLAN: 1. Vanco/Zosyn course per ID, plan for OR today, wound care, HBO2, repeat surveillance cx demonstrating clearance. Await bone biopsy 2. Continue Lopressor 50 bid, Cardura 4 qd, Procardia XL 90 qd
[2019-04-09 10:40] LABS: ACTIVATED PTT 35.9 SECONDS (25.2-36.5)
[2019-04-09 10:53] LABS: BLOOD UREA NITROGEN 48.4 mg/dL (7-18); CALCIUM 7.9 mg/dL (8.5-10.1); POTASSIUM 5.1 mmol/L (3.5-5.1)
[2019-04-09 11:11] LABS: IRON SERUM 21 ug/dL (50-175); TOTAL IRON BINDING CAPACITY 70 ug/dL (250-450)
[2019-04-09] MEDS ORDERED: LIDOCAINE HCL 2% (20ML MULTI-DOSE VIAL) ONE (11:32)
[2019-04-09] MEDS ORDERED: PROPOFOL 20 ML ONE (11:43)
[2019-04-09] MEDS ORDERED: MIDAZOLAM HCL 2 MG/2 ML SINGLE DOSE VIAL ONE (11:43)
[2019-04-09] MEDS ORDERED: LIDOCAINE HCL 2% (50ML VIAL) NR ONE (12:06)
--- NOTE | 2019-04-09 12:34 | PN ---
Progress Note (short form) - Note Progress Note: Vascular Surgery Pt seen and examined in OR with podiatry. Pt had surgery today to decompress foot. More pus on opening plantar foot. Also pt dx with C diff. Pt will need appropriate antibiotics. Will watch foot. If does not get better, will need BKA. Please optimize Al Daly dO
--- NOTE | 2019-04-09 12:42 | OP ---
Operative Note - Note: Operative Date: 04/09/19 Pre-Operative Diagnosis: Right foot nec. Fasciitis Operation: Right foot incision and drainage with revision of TMA. Findings: see dictation Post-Operative Diagnosis: Same as Pre-op Surgeon: Michael Matson Anesthesia: Local, MAC Estimated Blood Loss (mls): 20 Operative Report Dictated: Yes
--- NOTE | 2019-04-09 12:50 | PN ---
Progress Note (short form) - Note Progress Note: Seen and evaluated in the OR with Dr. Daly at bedside Discussed with patietn prior as well WBC up Does have c.diff upon debridment though has nec fasc tissue throughout the entire plantar foot high liklihood will need BKA willfollow WBC and viability
[2019-04-09] MEDS ORDERED: ONDANSETRON 4 MG/2 ML VIAL IVPUSH PRN (12:54)
--- NOTE | 2019-04-09 13:23 | PN ---
Physical Exam: SUBJECTIVE: Patient seen and examined at the bedside. Scheduled for washout today of the R foot. Patient endorsed having R foot pain. Had diarrhea overnight. Endorsed global weakness. Denied cp, sob, abd pain, n/v, headaches, fever, chills. OBJECTIVE: Vital Signs Period Temp Pulse Resp BP Sys/Gutierrez Pulse Ox Last 24 Hr 98 F-100.4 F 90-106 16-18 95-136/49-68 90-97 GENERAL: The patient is awake, alert, and fully oriented, in no acute distress. HEAD: Normal with no signs of trauma. EYES: PERRL, extraocular movements intact, sclera anicteric, conjunctiva clear. ENT: oropharynx clear without exudates, moist mucous membranes. NECK: Trachea midline, full range of motion, supple. LUNGS: Breath sounds equal, clear to auscultation bilaterally, no wheezes, no crackles, no accessory muscle use. HEART: Regular rate and rhythm, S1, S2 without murmur, rubs. ABDOMEN: Soft, nontender, nondistended, normoactive bowel sounds, no guarding, no rebound, no masses. EXTREMITIES: Amputation (L-BKA). S/p R TMA, guillotine, draining serosanginous fluid. Non-palpapable pulses on the R side. Good popliteal pulse. NEUROLOGICAL: Cranial nerves II through XII grossly intact. 5/5 muscle strength upper and lower extremities, bilaterally. LBKA. PSYCH: Agreeable, good insight. Laboratory Results - last 24 hr 04/08/19 04/08/19 04/09/19 16:44 22:55 06:43 WBC RBC Hgb Hct MCV MCH MCHC RDW Plt Count MPV Absolute Neuts (auto) Neutrophils % Neutrophils % (Manual) Band Neutrophils % Lymphocytes % Lymphocytes % (Manual) Monocytes % Monocytes % (Manual) Eosinophils % Eosinophils % (Manual) Basophils % Basophils % (Manual) Myelocytes % (Man) Promyelocytes % (Man) Blast Cells % (Manual) Nucleated RBC % Metamyelocytes Hypochromia Platelet Estimate Polychromasia Anisocytosis Schistocytes PT with INR INR PTT (Actin FS) Sodium Potassium Chloride Carbon Dioxide Anion Gap BUN Creatinine Est GFR (CKD-EPI)AfAm Est GFR (CKD-EPI)NonAf POC Glucometer 164 146 176 Random Glucose Calcium Magnesium Iron TIBC Iron Saturation Unsaturated IBC Ferritin Vitamin B12 Serum Folate Random Vancomycin 04/09/19 04/09/19 04/09/19 09:30 09:30 09:30 WBC 27.4 H RBC 2.67 L Hgb 7.2 L Hct 23.3 L MCV 87.3 MCH 27.0 MCHC 30.9 L RDW 17.5 H Plt Count 325 MPV 9.0 D Absolute Neuts (auto) 25.4 H Neutrophils % 92.7 H Neutrophils % (Manual) 91.0 H Band Neutrophils % 1.0 Lymphocytes % 2.9 L Lymphocytes % (Manual) 1.0 L D Monocytes % 3.7 L Monocytes % (Manual) 3 L Eosinophils % 0.1 Eosinophils % (Manual) 1.0 D Basophils % 0.6 Basophils % (Manual) 0.0 Myelocytes % (Man) 0 Promyelocytes % (Man) 0 Blast Cells % (Manual) 0 Nucleated RBC % 0 Metamyelocytes 0 D Hypochromia 1+ Platelet Estimate Normal Polychromasia 1+ Anisocytosis 2+ Schistocytes 1+ PT with INR INR PTT (Actin FS) Sodium 137 Potassium 5.1 Chloride 102 Carbon Dioxide 25 Anion Gap 10 BUN 48.4 H Creatinine 6.0 H Est GFR (CKD-EPI)AfAm 10.59 Est GFR (CKD-EPI)NonAf 9.14 POC Glucometer Random Glucose 171 H Calcium 7.9 L Magnesium 2.0 Iron Cancelled TIBC Iron Saturation Unsaturated IBC Ferritin 1970.5 H Vitamin B12 Serum Folate 13 Random Vancomycin 15.8 L 04/09/19 04/09/19 04/09/19 09:30 09:30 12:52 WBC RBC Hgb Hct MCV MCH MCHC RDW Plt Count MPV Absolute Neuts (auto) Neutrophils % Neutrophils % (Manual) Band Neutrophils % Lymphocytes % Lymphocytes % (Manual) Monocytes % Monocytes % (Manual) Eosinophils % Eosinophils % (Manual) Basophils % Basophils % (Manual) Myelocytes % (Man) Promyelocytes % (Man) Blast Cells % (Manual) Nucleated RBC % Metamyelocytes Hypochromia Platelet Estimate Polychromasia Anisocytosis Schistocytes PT with INR 16.40 H INR 1.39 H PTT (Actin FS) 35.9 Sodium Potassium Chloride Carbon Dioxide Anion Gap BUN Creatinine Est GFR (CKD-EPI)AfAm Est GFR (CKD-EPI)NonAf POC Glucometer 190 Random Glucose Calcium Magnesium Iron 21 L TIBC 70 L Iron Saturation 30 Unsaturated IBC 49 L Ferritin Vitamin B12 1212 H Serum Folate Random Vancomycin Active Medications Generic Name Dose Route Start Last Admin Trade Name Freq PRN Reason Stop Dose Admin Albuterol Sulfate 1 amp 04/07/19 18:49 Ventolin 0.083% Nebulizer Soln - NEB Q4H PRN SHORT OF BREATH/WHEEZING Doxazosin Mesylate 4 mg 04/08/19 10:00 04/08/19 10:03 Cardura - PO 4 mg DAILY IGGY Administration Fentanyl 25 mcg 04/09/19 12:54 Sublimaze Injection - IVPUSH 04/10/19 12:53 [id number] PRN PAIN-PACU ORDER X 4 DOSES ONLY Fluticasone Propionate 1 spray 04/08/19 10:00 04/08/19 13:41 Flonase - NS 1 spray DAILY IGGY Administration Gabapentin 100 mg 04/07/19 22:00 04/09/19 09:46 Neurontin - PO Not Given BID IGGY Heparin Sodium (Porcine) 5,000 unit 04/08/19 22:00 04/08/19 23:11 Heparin - SQ Not Given BID IGGY Piperacillin Sod/Tazobactam 50 mls @ 100 mls/hr 04/08/19 18:00 04/09/19 09:41 Sod 2.25 gm/ Dextrose IVPB 100 mls/hr Q8H-IV IGGY Administration Protocol Sodium Chloride 250 mls @ 3,000 mls/hr 04/08/19 15:30 Normal Saline - IV 04/09/19 15:30 PRN PRN Hypotension during Dialysis Sodium Chloride 1,000 mls @ 75 mls/hr 04/09/19 13:00 Normal Saline - IV ASDIR IGG[facility] Insulin Aspart 1 vial 04/07/19 22:00 04/08/19 23:12 Novolog Vial Sliding Scale - SQ Not Given HS IGGY Protocol Insulin Aspart 1 vial 04/08/19 07:00 04/09/19 06:45 Novolog Vial Sliding Scale - SQ Not Given TIDAC [facility] Protocol Lidocaine 1 patch 04/08/19 10:00 04/08/19 10:02 Lidoderm Patch - TP 1 patch DAILY [facility] Administration Methadone HCl 2.5 mg 04/08/19 16:00 04/09/19 06:45 Dolophine - PO Not Given TID IGGY Miscellaneous 1 each 04/08/19 22:00 12/11/19 23:20 Lidoderm Patch Removal MC 1 each DAILY@2200 [facility] Administration Nifedipine 90 mg 04/08/19 10:00 04/08/19 10:05 Procardia Xl - PO 90 mg DAILY [facility]GG[facility] Administration Ondansetron HCl 4 mg 04/09/19 12:54 Zofran Injection IVPUSH 04/10/19 12:53 Q6H PRN NAUSEA AND/OR VOMITING Petrolatum 1 applic 04/09/19 09:26 04/09/19 09:42 Vaseline TP 1 applic DAILY PRN Administration DRY SKIN Trazodone HCl 400 mg/ 450 mg 04/07/19 22:00 04/08/19 22:58 Trazodone HCl 50 mg PO 450 mg HS IGGY Administration Vancomycin HCl 1,000 mg 04/09/19 09:00 Vancomycin (Pre-Docked) IVPB 04/09/19 09:01 ONCE ONE Protocol ASSESSMENT/PLAN: Luciano Judge is a 61 year old male with a past medical history of DM, HTN, ESRD on dialysis (TThS), left BKA, diabetic neuropathy, hx of MRSA bacteremia presenting for a sepsis from likely osteomyelitis of R foot. Sepsis from Osteomyelitis - elevated WBC and febrile 100.4 - foot x-ray with emphysematous changes, deformity, lucency, destructive changes of the distal head of third metatarsal, metatarsal head, base of R third proximal phalynx consistent with osteomyelitis - continue Vanco, Zosyn - random vanco level in the morning to redose, 15.8, will be redosed after dialysis - bacteremia with blood culture growing MRSA, repeat blood cultures - wound culture with MRSA and Proteus vulgaris - await pathology results - await final intraoperative culture results - seen by podiatry and has undergone TMA, has had washout, noted nec fasc throughout foot and will likely require BKA - ID consulted, continue vancomycin, random vanco levels to guide treatment - vascular surgery consulted, will continue to follow - ESR/CRP elevated - echo ordered to evaluate for ?endocarditis, showing normal LV function, size, function, normal EF, ?poor LV compliance, borderline aortic root dilation, trace mitral regurg, mild pericardial effusion - hyperbaric consult as per podiatry ESRD - dialysis today, next round on Saturday - avoid fluid overload - nephrology consulted, recs appreciated - continued dialysis on normal schedule HTN - continue home meds - cardio consulted, recs appreciated DM - hold Levemir 12 units qAM, due to hypoglycemic episode, may resume if glucose levels stabilize or rise - ISS - BGM - A1c 10.8 - will require tight insulin dosing in the setting of osteomyelitis - endocrinology consulted, recs appreciated Anemia - likely in setting of chronic renal disease - iron studies showing anemia of chronic disease - given Epogen during dialysis - continue to monitor H/H Shoulder pain/chronic pain - methadone 2.5mg tid, confirmed with [facility] and confirmed with patient's pharmacy [facility], last ordered and dispensed on 03/13 for a 30 day course, will resume while in the hospital - pain management consulted Hx of PTSD - trazodone 450mg qhs Prophylaxis - heparin 5000 units subq bid FEN - continue NS at 75cc/hr in setting of sepsis, monitor for fluid overload - continue to monitor electrolytes and replete as necessary - renal diet post surgery Dispo - continue to monitor on Med-surg Visit type - Emergency Visit Emergency Visit: Yes ED Registration Date: 04/06/19 Care time: The patient presented to the Emergency Department on the above date and was hospitalized for further evaluation of their emergent condition. - New Patient This patient is new to me today: No - Critical Care Critical Care patient: No
[2019-04-09] MEDS: DOXAZOSIN MESYLATE 4 MG TABLET PO SCH (14:00)
[2019-04-09] MEDS: FLUTICASONE PROP 0.05% 16 GM NASAL SPRAY NS SCH (14:00)
[2019-04-09] MEDS: LIDOCAINE 5% TOPICAL PATCH TP SCH (14:00)
--- NOTE | 2019-04-09 14:58 | PN ---
Progress Note (short form) - Note Progress Note: Seen during dialysis C/o Poor apetite Vital Signs Period Temp Pulse Resp BP Sys/Gutierrez Pulse Ox Last 24 Hr 98 F-100.4 F 86-106 16-18 95-136/52-68 90-97 PE: AOx3 Neck: Supple, NO JVD HEENT: EOM Lungs: CTA CVS; S1s2 Abd: Benign Ext: Left BKA, Rt foot dressing Neuro: No focal deficit CMP Sodium 137 mmol/L (136-145) 04/09/19 09:30 Potassium 5.1 mmol/L (3.5-5.1) 04/09/19 09:30 Chloride 102 mmol/L (98-107) 04/09/19 09:30 Carbon Dioxide 25 mmol/L (21-32) 04/09/19 09:30 Anion Gap 10 MMOL/L (8-16) 04/09/19 09:30 BUN 48.4 mg/dL (7-18) H 04/09/19 09:30 Creatinine 6.0 mg/dL (0.55-1.3) H 04/09/19 09:30 Est GFR (CKD-EPI)AfAm 10.59 04/09/19 09:30 Est GFR (CKD-EPI)NonAf 9.14 04/09/19 09:30 POC Glucometer 190 UNITS (80-120) 04/09/19 12:52 Random Glucose 171 mg/dL (74-106) H 04/09/19 09:30 Hemoglobin A1c % 10.8 % (4.2-6.3) H 04/07/19 11:15 Lactic Acid 0.9 mmol/L (0.4-2.0) 04/06/19 23:00 Calcium 7.9 mg/dL (8.5-10.1) L 04/09/19 09:30 Magnesium 2.0 mg/dL (1.8-2.4) 04/09/19 09:30 Iron 21 ug/dL (50-175) L 04/09/19 09:30 TIBC 70 ug/dL (250-450) L 04/09/19 09:30 Iron Saturation 30 % (17.5-39) 04/09/19 09:30 Unsaturated IBC 49 ug/dL (200-275) L 04/09/19 09:30 Ferritin 1970.5 ng/ml (8-388) H 04/09/19 09:30 Total Bilirubin 0.6 mg/dL (0.2-1) 04/06/19 17:45 AST 11 U/L (15-37) L 04/06/19 17:45 ALT 10 U/L (13-61) L 04/06/19 17:45 Alkaline Phosphatase 130 U/L (45-117) H 04/06/19 17:45 Creatine Kinase 26 U/L (26-308) 04/06/19 23:00 Troponin I < 0.02 ng/ml (0.00-0.05) 04/06/19 23:00 C-Reactive Protein 22.3 MG/DL (0.00-0.3) H 04/07/19 11:15 Total Protein 6.0 g/dl (6.4-8.2) L 04/06/19 17:45 Albumin 2.0 g/dl (3.4-5.0) L 04/06/19 17:45 Vitamin B12 1212 pg/ml (193-986) H 04/09/19 09:30 Serum Folate 13 ng/mL (3.1-17.5) 04/09/19 09:30 Current Medications Generic Name Dose Route Start Last Admin Trade Name Freq PRN Reason Stop Dose Admin Albuterol Sulfate 1 amp 04/07/19 18:49 Ventolin 0.083% Nebulizer Soln - NEB Q4H PRN SHORT OF BREATH/WHEEZING Doxazosin Mesylate 4 mg 04/08/19 10:00 04/08/19 10:03 Cardura - PO 4 mg DAILY IGGY Administration Fluticasone Propionate 1 spray 04/08/19 10:00 04/08/19 13:41 Flonase - NS 1 spray DAILY IGGY Administration Gabapentin 100 mg 04/07/19 22:00 04/09/19 09:46 Neurontin - PO Not Given BID IGGY Heparin Sodium (Porcine) 5,000 unit 04/08/19 22:00 04/08/19 23:11 Heparin - SQ Not Given BID IGGY Piperacillin Sod/Tazobactam 50 mls @ 100 mls/hr 04/08/19 18:00 04/09/19 09:41 Sod 2.25 gm/ Dextrose IVPB 100 mls/hr Q8H-IV IGGY Administration Protocol Sodium Chloride 250 mls @ 3,000 mls/hr 04/08/19 15:30 Normal Saline - IV 04/09/19 15:30 PRN PRN Hypotension during Dialysis Sodium Chloride 1,000 mls @ 75 mls/hr 04/09/19 13:00 Normal Saline - IV ASDIR IGG[facility] Insulin Aspart 1 vial 04/07/19 22:00 04/08/19 23:12 Novolog Vial Sliding Scale - SQ Not Given HS IGG[facility] Protocol Insulin Aspart 1 vial 04/08/19 07:00 04/09/19 06:45 Novolog Vial Sliding Scale - SQ Not Given TIDAC [facility] Protocol Lidocaine 1 patch 04/08/19 10:00 04/08/19 10:02 Lidoderm Patch - TP 1 patch DAILY IGG[facility] Administration Methadone HCl 2.5 mg 04/08/19 16:00 04/09/19 06:45 Dolophine - PO Not Given TID IGGY Miscellaneous 1 each 04/08/19 22:00 04/08/19 23:20 Lidoderm Patch Removal MC 1 each DAILY@2200 IGG[facility] Administration Nifedipine 90 mg 04/08/19 10:00 04/08/19 10:05 Procardia Xl - PO 90 mg DAILY IGGY Administration Petrolatum 1 applic 04/09/19 09:26 04/09/19 09:42 Vaseline TP 1 applic DAILY PRN Administration DRY SKIN Trazodone HCl 400 mg/ 450 mg 04/07/19 22:00 04/08/19 22:58 Trazodone HCl 50 mg PO 450 mg HS IGGY Administration Vancomycin HCl 1,000 mg 04/09/19 09:00 Vancomycin (Pre-Docked) IVPB 04/09/19 09:01 ONCE ONE Protocol Vancomycin HCl 125 mg 04/09/19 18:00 Vancomycin Oral Solution PO Q6HPO IGGY Right foot Infection/Metatarsal osteomyelitis S/P Transmetatarsal amputation: Sepsis ESRD on HD DM Uncontrolled: A1c 10.3/Episode of hypoglycemia asymptomatic HTN PVD S/P Left BKA H/O MRSA bacteremia 09/2017 suspected from HD catheter H.O Right IJ thrombus in 09/2017 (suspected catheter related) BGM QACHS and 3 PM Monitor blood sugar closely as pts with CKD tend to be very sensitive to Insulin and develop hypoglycemia frequently Continue to hold Levemir for now, developted hypoglycemia during this admission Novolog SS coverage Will F/u
[2019-04-09] MEDS ORDERED: SODIUM CHLORIDE 250 ML IV PRN (16:21)
[2019-04-09] MEDS ORDERED: EPOETIN ALFA 20,000 UNIT/1 ML VIAL IVPUSH ONE (16:30)
[2019-04-09] MEDS ORDERED: VANCOMYCIN 1 GM in D5W (PRE-DOCKED) 1,000 MG/250 ML IVPB ONE (16:30)
[2019-04-09] MEDS: NIFEdipine E.R. 90 MG TABLET (FP) PO SCH (17:19)
--- NOTE | 2019-04-09 17:30 | PATH ---
Surgical Pathology Report Patient Name: MARIAJOSE MALAVE [facility]. Rec. #: [id number] /Age/Gender: 1955 (Age: 63) / M Account: [id number] Location: [address] [place] [address]/[facility] Taken: 04/07/2019 Received: 04/08/2019 Reported: 04/09/2019 Physicians: Nafisa Onofre MD Specimen(s) Received RIGHT FOOT TRANSMETATARSAL RESECTION Clinical History Right foot wet gangrene Final Diagnosis FOOT, RIGHT, TRANSMETATARSAL RESECTION: PORTION OF FOOT WITH MARKED ACUTE AND CHRONIC GANGRENOUS NECROSIS AND ULCERATION. UNDERLYING BONE WITH ACUTE OSTEOMYELITIS AND NECROSIS. ADDITIONAL PORTIONS OF METATARSAL BONES (PRESUMED SURGICAL MARGIN) FOCALLY INVOLVED WITH ACUTE OSTEOMYELITIS. SOFT TISSUE MARGIN IS VIABLE. Electronically Signed Cinthia Reeder M.D. Gross Description Received in formalin labeled "right foot transmetatarsal amputation," is a 7.5 x 6.0 x 4.5 cm transmetatarsal amputation. The digits appear to have been previously amputated. There is a 6.5 x 6.0 cm cotter-green, gangrenous, ulcerated lesion at the stump and focally extending to the skin and soft tissue margin on the volar surface. The lesion involves the underlying bone. There are 4 additional portions of presumed metatarsal bones separately received within the same container. The bones range from 2.4 x 1.2 x 1.0 cm to 3.5 x 1.7 x 1.4 cm. All 4 bones display a shaved end, consistent with a true margin of resection. Sanitation Inspector sections are submitted in 6 cassettes as follows: 1-lesion with underlying bone, following decalcification; 2-skin and soft tissue margin; 3-6-shaved end of true bone margins, following decalcification (sequentially submitted from smallest to largest). 04/08/201904/08/2019
[2019-04-09] MEDS ORDERED: VANCOMYCIN 250 MG/5 ML ORAL SOLUTION PO SCH (18:00)
--- NOTE | 2019-04-09 18:08 | PN ---
Teaching Attending Note Name of Resident: Srini Adame ATTENDING PHYSICIAN STATEMENT I saw and evaluated the patient. I reviewed the resident's note and discussed the case with the resident. I agree with the resident's findings and plan as documented. SUBJECTIVE: Some ongoing discomfort foot post surgical pain POD 2 s/p transmetatarsal amputation. No fever/chills. OBJECTIVE: Afebrile, Hemodynamically Stable Last Vital Signs Temp Pulse Resp BP Pulse Ox 98.4 F 98 H 18 124/66 95 04/09/19 14:25 04/09/19 17:00 04/09/19 17:00 04/09/19 17:00 04/09/19 14:03 General - lying in bed, complains of pain Heart - S1, S2, RRR Chest - clear to auscultation Abdomen - Soft, non-tender. Bowel Sounds normal Extremities - LLE BKA, R foot surgical site dressed. Edema+, venous stasis skin changes. Laboratory Results - last 24 hr 04/08/19 04/09/19 04/09/19 22:55 06:43 09:30 WBC RBC Hgb Hct MCV MCH MCHC RDW Plt Count MPV Absolute Neuts (auto) Neutrophils % Neutrophils % (Manual) Band Neutrophils % Lymphocytes % Lymphocytes % (Manual) Monocytes % Monocytes % (Manual) Eosinophils % Eosinophils % (Manual) Basophils % Basophils % (Manual) Myelocytes % (Man) Promyelocytes % (Man) Blast Cells % (Manual) Nucleated RBC % Metamyelocytes Hypochromia Platelet Estimate Polychromasia Anisocytosis Schistocytes PT with INR INR PTT (Actin FS) Sodium Potassium Chloride Carbon Dioxide Anion Gap BUN Creatinine Est GFR (CKD-EPI)AfAm Est GFR (CKD-EPI)NonAf POC Glucometer 146 176 Random Glucose Calcium Magnesium Iron TIBC Iron Saturation Unsaturated IBC Ferritin Vitamin B12 Serum Folate Random Vancomycin 15.8 L 04/09/19 04/09/19 04/09/19 09:30 09:30 09:30 WBC 27.4 H RBC 2.67 L Hgb 7.2 L Hct 23.3 L MCV 87.3 MCH 27.0 MCHC 30.9 L RDW 17.5 H Plt Count 325 MPV 9.0 D Absolute Neuts (auto) 25.4 H Neutrophils % 92.7 H Neutrophils % (Manual) 91.0 H Band Neutrophils % 1.0 Lymphocytes % 2.9 L Lymphocytes % (Manual) 1.0 L D Monocytes % 3.7 L Monocytes % (Manual) 3 L Eosinophils % 0.1 Eosinophils % (Manual) 1.0 D Basophils % 0.6 Basophils % (Manual) 0.0 Myelocytes % (Man) 0 Promyelocytes % (Man) 0 Blast Cells % (Manual) 0 Nucleated RBC % 0 Metamyelocytes 0 D Hypochromia 1+ Platelet Estimate Normal Polychromasia 1+ Anisocytosis 2+ Schistocytes 1+ PT with INR 16.40 H INR 1.39 H PTT (Actin FS) 35.9 Sodium 137 Potassium 5.1 Chloride 102 Carbon Dioxide 25 Anion Gap 10 BUN 48.4 H Creatinine 6.0 H Est GFR (CKD-EPI)AfAm 10.59 Est GFR (CKD-EPI)NonAf 9.14 POC Glucometer Random Glucose 171 H Calcium 7.9 L Magnesium 2.0 Iron Cancelled TIBC Iron Saturation Unsaturated IBC Ferritin 1970.5 H Vitamin B12 Serum Folate 13 Random Vancomycin 04/09/19 04/09/19 09:30 12:52 WBC RBC Hgb Hct MCV MCH MCHC RDW Plt Count MPV Absolute Neuts (auto) Neutrophils % Neutrophils % (Manual) Band Neutrophils % Lymphocytes % Lymphocytes % (Manual) Monocytes % Monocytes % (Manual) Eosinophils % Eosinophils % (Manual) Basophils % Basophils % (Manual) Myelocytes % (Man) Promyelocytes % (Man) Blast Cells % (Manual) Nucleated RBC % Metamyelocytes Hypochromia Platelet Estimate Polychromasia Anisocytosis Schistocytes PT with INR INR PTT (Actin FS) Sodium Potassium Chloride Carbon Dioxide Anion Gap BUN Creatinine Est GFR (CKD-EPI)AfAm Est GFR (CKD-EPI)NonAf POC Glucometer 190 Random Glucose Calcium Magnesium Iron 21 L TIBC 70 L Iron Saturation 30 Unsaturated IBC 49 L Ferritin Vitamin B12 1212 H Serum Folate Random Vancomycin Current Medications Generic Name Dose Route Start Last Admin Trade Name Freq PRN Reason Stop Dose Admin Albuterol Sulfate 1 amp 04/07/19 18:49 Ventolin 0.083% Nebulizer Soln - NEB Q4H PRN SHORT OF BREATH/WHEEZING Doxazosin Mesylate 4 mg 04/08/19 10:00 04/09/19 14:00 Cardura - PO Not Given DAILY [facility] Fluticasone Propionate 1 spray 04/08/19 10:00 04/09/19 14:00 Flonase - NS Not Given DAILY [facility] Gabapentin 100 mg 04/07/19 22:00 04/09/19 09:46 Neurontin - PO Not Given BID [facility] Heparin Sodium (Porcine) 5,000 unit 04/08/19 22:00 04/08/19 23:11 Heparin - SQ Not Given BID [facility] Piperacillin Sod/Tazobactam 50 mls @ 100 mls/hr 04/08/19 18:00 04/09/19 09:41 Sod 2.25 gm/ Dextrose IVPB 100 mls/hr Q8H-IV IGG[facility] Administration Protocol Sodium Chloride 1,000 mls @ 42 mls/hr 04/09/19 17:25 Normal Saline - IV ASDIR IGG[facility] Insulin Aspart 1 vial 04/07/19 22:00 04/08/19 23:12 Novolog Vial Sliding Scale - SQ Not Given HS [facility] Protocol Insulin Aspart 1 vial 04/08/19 07:00 04/09/19 12:00 Novolog Vial Sliding Scale - SQ Not Given TIDAC [facility] Protocol Lidocaine 1 patch 04/08/19 10:00 04/09/19 14:00 Lidoderm Patch - TP Not Given DAILY [facility] Methadone HCl 2.5 mg 04/08/19 16:00 04/09/19 14:00 Dolophine - PO Not Given TID [facility] Miscellaneous 1 each 04/08/19 22:00 04/08/19 23:20 Lidoderm Patch Removal MC 1 each DAILY@2200 [facility] Administration Nifedipine 90 mg 04/08/19 10:00 04/09/19 17:19 Procardia Xl - PO Not Given DAILY [facility] Petrolatum 1 applic 04/09/19 09:26 04/09/19 09:42 Vaseline TP 1 applic DAILY PRN Administration DRY SKIN Trazodone HCl 400 mg/ 450 mg 04/07/19 22:00 04/08/19 22:58 Trazodone HCl 50 mg PO 450 mg HS IGGY Administration Home Medications Medication Instructions Recorded Albuterol 0.083% Nebulizer Coretta 1 amp NEB Q4H PRN #120 amp 08/23/17 [Ventolin 0.083% Nebulizer Soln -] Fluticasone Prop 0.05% Nasal 1 - 2 spray NS DAILY #1 spray.pump 08/23/17 [Flonase -] Doxazosin Mesylate [Cardura -] 4 mg PO DAILY tablet 10/06/17 Gabapentin [Neurontin -] 100 mg PO BID capsule 10/06/17 Insulin Sliding Scale [Novolog 1 vial SQ ACHS units 10/06/17 Vial Sliding Scale -] Lidocaine 5% Patch [Lidoderm -] 1 patch TP DAILY patch 10/06/17 Lidocaine Patch Removal [Lidoderm 1 each MC DAILY@2200 each 10/06/17 Patch Removal] Insulin (Levemir) [Levemir Vial] 12 unit SQ DAILY@0700 04/07/19 Nifedipine ER [Procardia XL -] 90 mg PO DAILY 04/07/19 traZODone HCL [Desyrel -] 450 mg PO HS 04/07/19 ASSESSMENT/PLAN: 63 year old male with PMhx of ESRD on HD (TTS), IDDM, HTN, PVD s/p L BKA, Diabetic neuropathy, prior h/o MRSA bacteremia 09/2017 suspected from HD catheter , Right IJ thrombus in 09/2017 (suspected catheter related) admitted with progressive right foot swelling, redness, foul smelling discharge, chills. Right foot xray: soft tissue swelling with soft tissue emphysematous, deformities consistent with osteomyelitis noted 1. Sepsis secondary to R Foot Osteomyelitis/Cellulitis with Bacteremia POD 2 s/p transmetatarsal amputation. Likely MRSA Bacteremia - source ?foot versus AVF Wound/Surgical Cx - polymicrobial Blood Cx - Strep mitis/MRSA Still febrile, Tmax overnight 100.4 Receiving IV Zosyn/Vancomycin TTE no evidence of vegetations - Cardiology to please comment on utility of CHAKA to exclude endocarditis. Podiatry to return to OR today for surgical wound debridement/washout. 2. ESRD on HD TTS via UE AVF No signs of infection at fistula site On IV Zosyn/Vancomycin Repeat Blood Cx pending 3. DM 2 - uncontrolled, A1C 10.8. Hyperglycemia sec to infection/poor compliance Maintain on Novolog sliding scale. Levemir held as he is NPO for surgery. 4. HTN - Continue Nifedipine, Doxazosin 5. ESRD on HD TTS - Nephrology following. 6. Normocytic Anemia likely sec to ESRD - Procrit as per Nephrology. 7. Chronic Pain Syndrome - Methadone dose confirmed and started. DVT Px - Heparin SQ
[2019-04-09] MEDS ORDERED: ALBUTEROL SO4 0.083% IH SOL 2.5 MG/3 ML VIAL.NEB. NEB PRN (20:07)
[2019-04-09] MEDS ORDERED: ACETAMINOPHEN 1000 MG/100 ML VIAL (NON FORMULARY) IVPB ONE (20:15)
[2019-04-09] MEDS ORDERED: TRAZODONE HCL PO SCH (22:00)
[2019-04-09] MEDS ORDERED: LIDOCAINE PATCH REMOVAL MC SCH ×2 (22:00)
[2019-04-09] MEDS ORDERED: INSULIN SLIDING SCALE (NOVOLOG) 1 VIAL SQ SCH (22:00)
[2019-04-09] MEDS ORDERED: traZODone HCL 100 MG TABLET (FP) ONE (22:13)
[2019-04-09] MEDS ORDERED: traZODone HCL 50 MG TABLET (FP) ONE (22:13)
[2019-04-09] MEDS: HEPARIN NA (PORCINE) 5,000 UNITS/ML 1ML VIAL SQ SCH (22:19)
[2019-04-10] MEDS ORDERED: PIPERACILLIN/TAZOBACTAM 2.25 GM VIAL IVPB ONE ×3 (01:54→16:53)
[2019-04-10] MEDS ORDERED: DEXTROSE 5%-WATER - 50 ML IVPB ONE ×3 (01:55→16:54)
[2019-04-10] MEDS: PIPERACILLIN/TAZOB 2.25 GM 2.25 GM in DEXTROSE 5%-WATER - 50 ML IVPB SCH ×3 (02:27→17:12)
[2019-04-10] MEDS: VANCOMYCIN 250 MG/5 ML ORAL SOLUTION PO SCH ×4 (03:03→17:52)
[2019-04-10] MEDS: INSULIN SLIDING SCALE (NOVOLOG) 1 VIAL SQ SCH ×4 (06:30→22:38)
[2019-04-10] MEDS: METHADONE HCL 5 MG TABLET PO SCH ×3 (06:32→21:44)
--- NOTE | 2019-04-10 08:03 | PN ---
Progress Note (short form) - Note Progress Note: Podiatry F/U: Seen/evaluated at bedside NAD. During debridment yesterday noted no healthy viable tissue and draining dishwater fluid GUI: R foot:s/p revisional tma and entire plantar washout, draining dishwater liquid , some sanguine leakage noted which is stopped with compression, gross edema, severe POP noted along the medial aspect of the tibai and medial ankle joint going into plantar foot. Xray: emphysematous changes noted along the medial aspect of the ankle and posterior/superior calcaneus (area of pain) Imp: 63 year old diabetic male s/p open R TMA for wet gangrene osteomyelitis R foot Evaluated and reviewed Seen with PA from vascular. Given gross destruction seen in the OR last night and the new soft tissue emphysema around the ankle will require BKA NPO for keaton FLORES this morning w/ vascular Will follow as needed.
--- NOTE | 2019-04-10 08:05 | PN ---
Progress Note (short form) - Note Progress Note: VASCULAR SURGERY 63 yo male POD #1 s/p right foot I&D w/ revision of TMA secondary to necrotizing fasciitis (Michael Matson, DPAdryan) Foot Xray: emphysematous changes along medial aspect of the ankle and posterior/ superior calcaneus (area of pain) Patient seen and evaluated with Dr. Matson this morning. Dressing/packing removed by Dr. Matson...continues to drain pus. Last Vital Signs Temp Pulse Resp BP Pulse Ox 99.2 F 96 H 20 131/66 95 04/10/19 05:35 04/10/19 05:35 04/10/19 05:35 04/10/19 05:35 04/09/19 14:03 CBC, BMP 04/09/19 09:30 04/09/19 09:30 Problem List - Problems (1) Gas gangrene of foot Assessment/Plan: 63 year old diabetic male POD #1 s/p open R TMA for wet gangrene osteomyelitis Per conversation with Dr. Matson regarding intraop findings of gross destruction and non-viable tissue, continues to drain pus and xray findings consistent with gas tracking proximally, patient will need guillotine amputation today. 1. NPO now except PO meds 2. OR booked for 11AM 3. plan for formal RLE BKA next week 4. Medical optimization 5. Discussed with patient the need for surgery. He understands and agrees with the plan. 6. Surgeon to obtain consent Discussed above plan with Dr. Daly and agrees. Code(s): A48.0 - GAS GANGRENE (2) ESRD (end stage renal disease) on dialysis Code(s): N18.6 - END STAGE RENAL DISEASE; Z99.2 - DEPENDENCE ON RENAL DIALYSIS (3) Uncontrolled diabetes mellitus Code(s): E11.65 - TYPE 2 DIABETES MELLITUS WITH HYPERGLYCEMIA Qualifiers: Diabetes mellitus type: type 2 Glycemic state: with hyperglycemia Qualified Code(s): E11.65 - Type 2 diabetes mellitus with hyperglycemia (4) Foot infection Code(s): L08.9 - LOCAL INFECTION OF THE SKIN AND SUBCUTANEOUS TISSUE, UNSP
--- NOTE | 2019-04-10 08:45 | PN ---
Progress Note (short form) - Note Progress Note: Post op day#1.S/P I&D of right foot under MAC uneventful.Patient stable.No any anesthesia related problem.Patient Dc fromthe anesthesia care.
--- NOTE | 2019-04-10 08:50 | PN ---
Progress Note, Physician History of Present Illness: patient planning to go for bka today vanco level noted - Current Medication List Current Medications: Active Medications Albuterol Sulfate (Ventolin 0.083% Nebulizer Soln -) 1 amp NEB Q4H PRN PRN Reason: SHORT OF BREATH/WHEEZING Doxazosin Mesylate (Cardura -) 4 mg PO DAILY [facility] Fluticasone Propionate (Flonase -) 1 spray NS DAILY [facility] Gabapentin (Neurontin -) 100 mg PO BID [facility] Last Admin: 04/09/19 22:19 Dose: 100 mg Heparin Sodium (Porcine) (Heparin -) 5,000 unit SQ BID [facility] Last Admin: 04/09/19 22:19 Dose: 5,000 unit Sodium Chloride (Normal Saline -) 1,000 mls @ 42 mls/hr IV ASDIR [facility] Piperacillin Sod/Tazobactam (Sod 2.25 gm/ Dextrose) 50 mls @ 100 mls/hr IVPB Q8H-IV IGG[facility]; Protocol Last Admin: 04/10/19 02:27 Dose: 100 mls/hr Insulin Aspart (Novolog Vial Sliding Scale -) 1 vial SQ HS [facility]; Protocol Last Admin: 04/09/19 22:20 Dose: Not Given Insulin Aspart (Novolog Vial Sliding Scale -) 1 vial SQ TIDAC [facility]; Protocol Last Admin: 04/10/19 06:30 Dose: 3 units Lidocaine (Lidoderm Patch -) 1 patch TP DAILY [facility] Methadone HCl (Dolophine -) 2.5 mg PO TID [facility] Last Admin: 04/10/19 06:32 Dose: 2.5 mg Miscellaneous (Lidoderm Patch Removal) 1 each MC DAILY@2200 [facility] Last Admin: 04/09/19 22:21 Dose: 1 each Nifedipine (Procardia Xl -) 90 mg PO DAILY [facility] Petrolatum (Vaseline) 1 applic TP DAILY PRN PRN Reason: DRY SKIN Trazodone HCl 400 mg/ (Trazodone HCl 50 mg) 450 mg PO HS [facility] Last Admin: 04/09/19 22:16 Dose: 450 mg Vancomycin HCl (Vancomycin Oral Solution) 125 mg PO Q6HPO [facility] Last Admin: 04/10/19 06:32 Dose: 125 mg - Objective Vital Signs: Vital Signs Temperature 99.2 F 04/10/19 05:35 Pulse Rate 96 H 04/10/19 05:35 Respiratory Rate 20 04/10/19 05:35 Blood Pressure 131/66 04/10/19 05:35 O2 Sat by Pulse Oximetry (%) 95 04/09/19 14:03 Constitutional: Yes: No Distress, Calm Cardiovascular: Yes: S1, S2 Respiratory: Yes: Regular, CTA Bilaterally Musculoskeletal: Yes: WNL Extremities: Yes: Other Wound/Incision: Yes: Draining Neurological: Yes: Alert, Oriented Psychiatric: Yes: Alert, Oriented Labs: CBC, BMP 04/09/19 09:30 04/09/19 09:30 INR, PTT INR 1.39 (0.83-1.09) H 04/09/19 09:30 Assessment/Plan 61 year old male with a past medical history of DM, HTN, ESRD on dialysis (TThS) , left BKA, diabetic neuropathy, hx of MRSA bacteremia, presenting for a sepsis from likely osteomyelitis of R foot. sepsis osteo r foot ,rsa bacteremia esrd htn dm gas gangrene plan await for blood cx will give one dose of vanco rest as per the team continue abx for or today
[2019-04-10] MEDS ORDERED: VANCOMYCIN 500 MG in DEXTROSE 5%-WATER - 100 ML IVPB ONE (09:00)
[2019-04-10 09:02] LABS: BASO % 0.4 % (0-2.0); EOS % 0.2 % (0-4.5); HEMATOCRIT 22.1 % (35.4-49); LYMPH % 3.3 % (8-40); MCH 27.6 pg (25.7-33.7); MCHC 31.4 g/dl (32.0-35.9); MEAN CELL VOLUME 87.7 fl (80-96); MEAN PLT VOLUME 8.6 fl (7.5-11.1); MONO % 3.3 % (3.8-10.2); NEUT % 92.8 % (42.8-82.8); PLATELET COUNT 294 K/MM3 (134-434); RBC 2.52 M/mm3 (4.00-5.60); RDW 17.1 % (11.9-15.9); WHITE BLOOD COUNT 28.1 K/mm3 (4.0-10.0)
[2019-04-10 09:23] LABS: BLOOD UREA NITROGEN 32.8 mg/dL (7-18); CALCIUM 7.7 mg/dL (8.5-10.1); CREATININE 3.9 mg/dL (0.55-1.3); POTASSIUM 4.2 mmol/L (3.5-5.1)
[2019-04-10] MEDS ORDERED: LIDOCAINE 5% TOPICAL PATCH TP SCH (10:00)
[2019-04-10] MEDS ORDERED: NIFEdipine E.R. 90 MG TABLET (FP) PO SCH (10:00)
[2019-04-10] MEDS ORDERED: FLUTICASONE PROP 0.05% 16 GM NASAL SPRAY NS SCH (10:00)
[2019-04-10] MEDS ORDERED: DOXAZOSIN MESYLATE 4 MG TABLET PO SCH (10:00)
--- NOTE | 2019-04-10 10:27 | OP ---
DATE OF OPERATION: 04/09/2019 PREOPERATIVE DIAGNOSIS: Right foot necrotizing fasciitis. POSTOPERATIVE DIAGNOSIS: Right foot necrotizing fasciitis. PROCEDURE PERFORMED: Right foot plantar incision and drainage with revisional transmetatarsal amputation. SURGEON: Michael Matson DPM ANESTHESIA: IV sedation with local injections. INDICATIONS: This patient is a 63-year-old male with the above-mentioned diagnosis. Patient exhausted all forms of conservative treatment at this time and requires further surgical interventions for the condition as listed above. After careful explanation of risks, benefits and complications for the proposed procedure patient signed the consent form. All questions and concerns were addressed at this time. Specifically addressed with the patient the clinical concern for the need for a below-knee amputation in a future surgery. OPERATIVE PROCEDURE: Patient brought to the operating room and placed on the operating table in a supine position. No pneumatic ankle tourniquet was utilized for this procedure. Following the induction of IV sedation a local injection of 15 mL of 2% lidocaine plain was injected in an ankle block-type fashion without complications. The right foot was then prepped and draped in the normal sterile manner and the procedure began. Right foot incision and drainage: At this time attention was directed to the patient's right foot where there was already noted to be a guillotine transmetatarsal amputation. The entire distal aspect where the amputation occurred was all liquefactive necrosis. At this time utilizing a No. 15 blade a plantar curvilinear incision was made extending from the distal aspect of the TMA site plantarly proximally down to roughly the plantar midfoot. At this time utilizing manual decompression and sharp decompression the plantar aspect incision site was then opened up. This was carried deep with manual decompression. At this time it was noted that the plantar fascia had been completely eroded by necrotizing fasciitis. There was dishwater-type fluid flowing out from the foot and there was purulence noted to be coming from the medial compartment of the foot. At this time the entire plantar fascia was resected and passed from the operative field. A wound culture had been taken. With utilizing manual decompression I tracked along the medial aspect of the foot up to the medial aspect of the ankle joint where there was noted to be a continuous large amount of purulence coming from the medial aspect of the ankle as well. On manual compression from the leg down distally there was noted to be a large amount of purulent and dishwater-type fluid flowing from this medial compartment. All the structures plantarly were noted to be cotter and nonviable at this time. The wound was then flushed with copious amounts of normal sterile saline. The bleeders were ligated as necessary and a small leaking bleeder was controlled with Surgicel intraoperatively. No further bleeding was noted at this time. The wound was then packed with 1/2-inch Iodoform packing without complication. Attention was then directed distally at the TMA site where there was noted to be 1 elongated metatarsal bone. With the use of a sagittal saw the metatarsal was brought down and brought back into length with the parabola. At this time the wound was then dressed with wet-to-dry dressing and ABDs, 4 x 4's, Kerlix and Coban at this time to allow for compression to be maintained on the infected site. POSTOPERATIVE CONDITION: Patient tolerated anesthesia and procedure well and was transferred to the recovery room with vital signs stable. Unfortunately the prognosis for this patient's leg is quite poor. I discussed this with the vascular surgeons after the case as well so they are on board for the case. The patient will be followed on the floor as previously discussed with the patient. REGGIE LEMUS/[id number]
[2019-04-10] MEDS: GABAPENTIN 100 MG CAPSULE (FP) PO SCH ×2 (10:38→21:45)
[2019-04-10] MEDS: HEPARIN NA (PORCINE) 5,000 UNITS/ML 1ML VIAL SQ SCH (10:38)
--- NOTE | 2019-04-10 10:47 | PN ---
Progress Note (short form) - Note Progress Note: Going for Rt leg BKA Vital Signs Period Temp Pulse Resp BP Sys/Gutierrez Pulse Ox Last 24 Hr 98.3 F-99.6 F 60-120 16-21 95-134/52-72 95-97 PE: AOx3 Neck: Supple, NO JVD HEENT: EOM Lungs: CTA CVS; S1s2 Abd: Benign Ext: Left BKA, Rt foot dressing Neuro: No focal deficit CMP Sodium 144 mmol/L (136-145) 04/10/19 07:20 Potassium 4.2 mmol/L (3.5-5.1) 04/10/19 07:20 Chloride 105 mmol/L (98-107) 04/10/19 07:20 Carbon Dioxide 29 mmol/L (21-32) 04/10/19 07:20 Anion Gap 10 MMOL/L (8-16) 04/10/19 07:20 BUN 32.8 mg/dL (7-18) H 04/10/19 07:20 Creatinine 3.9 mg/dL (0.55-1.3) H 04/10/19 07:20 Est GFR (CKD-EPI)AfAm 17.83 04/10/19 07:20 Est GFR (CKD-EPI)NonAf 15.39 04/10/19 07:20 POC Glucometer 223 UNITS (80-120) 04/10/19 06:26 Random Glucose 204 mg/dL (74-106) H 04/10/19 07:20 Hemoglobin A1c % 10.8 % (4.2-6.3) H 04/07/19 11:15 Lactic Acid 0.9 mmol/L (0.4-2.0) 04/06/19 23:00 Calcium 7.7 mg/dL (8.5-10.1) L 04/10/19 07:20 Magnesium 2.0 mg/dL (1.8-2.4) 04/10/19 07:20 Iron 21 ug/dL (50-175) L 04/09/19 09:30 TIBC 70 ug/dL (250-450) L 04/09/19 09:30 Iron Saturation 30 % (17.5-39) 04/09/19 09:30 Unsaturated IBC 49 ug/dL (200-275) L 04/09/19 09:30 Ferritin 1970.5 ng/ml (8-388) H 04/09/19 09:30 Total Bilirubin 0.6 mg/dL (0.2-1) 04/06/19 17:45 AST 11 U/L (15-37) L 04/06/19 17:45 ALT 10 U/L (13-61) L 04/06/19 17:45 Alkaline Phosphatase 130 U/L (45-117) H 04/06/19 17:45 Creatine Kinase 26 U/L (26-308) 04/06/19 23:00 Troponin I < 0.02 ng/ml (0.00-0.05) 04/06/19 23:00 C-Reactive Protein 22.3 MG/DL (0.00-0.3) H 04/07/19 11:15 Total Protein 6.0 g/dl (6.4-8.2) L 04/06/19 17:45 Albumin 2.0 g/dl (3.4-5.0) L 04/06/19 17:45 Vitamin B12 1212 pg/ml (193-986) H 04/09/19 09:30 Serum Folate 13 ng/mL (3.1-17.5) 04/09/19 09:30 Current Medications Generic Name Dose Route Start Last Admin Trade Name Freq PRN Reason Stop Dose Admin Albuterol Sulfate 1 amp 04/09/19 20:07 Ventolin 0.083% Nebulizer Soln - NEB Q4H PRN SHORT OF BREATH/WHEEZING Doxazosin Mesylate 4 mg 04/10/19 10:00 Cardura - PO DAILY [facility] Fluticasone Propionate 1 spray 04/10/19 10:00 Flonase - NS DAILY [facility] Gabapentin 100 mg 04/09/19 22:00 04/09/19 22:19 Neurontin - PO 100 mg BID [facility] Administration Heparin Sodium (Porcine) 5,000 unit 04/09/19 22:00 04/09/19 22:19 Heparin - SQ 5,000 unit BID IGG[facility] Administration Sodium Chloride 1,000 mls @ 42 mls/hr 04/09/19 17:25 Normal Saline - IV ASDIR [facility] Piperacillin Sod/Tazobactam 50 mls @ 100 mls/hr 04/10/19 02:00 04/10/19 02:27 Sod 2.25 gm/ Dextrose IVPB 100 mls/hr Q8H-IV [facility] Administration Protocol Insulin Aspart 1 vial 04/09/19 22:00 04/09/19 22:20 Novolog Vial Sliding Scale - SQ Not Given HS [facility] Protocol Insulin Aspart 1 vial 04/10/19 07:00 04/10/19 06:30 Novolog Vial Sliding Scale - SQ 3 units TIDAC [facility] Administration Protocol Lidocaine 1 patch 04/10/19 10:00 Lidoderm Patch - TP DAILY [facility] Methadone HCl 2.5 mg 04/09/19 22:00 04/10/19 06:32 Dolophine - PO 2.5 mg TID [facility] Administration Miscellaneous 1 each 04/09/19 22:00 04/09/19 22:21 Lidoderm Patch Removal MC 1 each DAILY@2200 [facility] Administration Nifedipine 90 mg 04/10/19 10:00 Procardia Xl - PO DAILY [facility] Petrolatum 1 applic 04/09/19 20:07 Vaseline TP DAILY PRN DRY SKIN Trazodone HCl 400 mg/ 450 mg 04/09/19 22:00 04/09/19 22:16 Trazodone HCl 50 mg PO 450 mg HS [facility] Administration Vancomycin HCl 125 mg 04/10/19 00:00 04/10/19 06:32 Vancomycin Oral Solution PO 125 mg Q6HPO [facility] Administration Right foot Infection/Metatarsal osteomyelitis: scheduled for BKA S/P Transmetatarsal amputation: Sepsis ESRD on HD DM Uncontrolled: A1c 10.3/Episode of hypoglycemia asymptomatic HTN PVD S/P Left BKA H/O MRSA bacteremia 09/2017 suspected from HD catheter H.O Right IJ thrombus in 09/2017 (suspected catheter related) BGM QACHS and 3 PM Monitor blood sugar closely as pts with CKD tend to be very sensitive to Insulin and develop hypoglycemia frequently Continue to hold Levemir for now, Pt is NPO for BKA. Novolog SS coverage Will F/u
[2019-04-10] MEDS ORDERED: PROPOFOL 20 ML ONE (11:00)
[2019-04-10] MEDS ORDERED: MIDAZOLAM HCL 2 MG/2 ML SINGLE DOSE VIAL ONE ×3 (11:01→11:28)
--- NOTE | 2019-04-10 11:17 | PN ---
Physical Exam: SUBJECTIVE: Patient seen and examined at the bedside. Patient stated that he continues to have pain in his R foot and has had bloody drainage from the area. Stated that his appetite is poor. Denied cp, sob, abd pain, n/v/c/d/, fever, chills, numbness, tingling, headaches. Admitted to ICU for closer monitoring s/p BKA. OBJECTIVE: Vital Signs Period Temp Pulse Resp BP Sys/Gutierrez Pulse Ox Last 24 Hr 98.3 F-99.6 F 60-120 16-21 95-134/52-72 95-97 GENERAL: The patient is awake, alert, and fully oriented, in no acute distress. HEAD: Normal with no signs of trauma. EYES: PERRL, extraocular movements intact, sclera anicteric, conjunctiva clear. ENT: oropharynx clear without exudates, moist mucous membranes. NECK: Trachea midline, full range of motion, supple. LUNGS: Breath sounds equal, clear to auscultation bilaterally, no wheezes, no crackles, no accessory muscle use. HEART: Regular rate and rhythm, S1, S2 without murmur, rubs. ABDOMEN: Soft, nontender, nondistended, normoactive bowel sounds, no guarding, no rebound, no masses. EXTREMITIES: Amputation (L-BKA). S/p R TMA, guillotine, draining copious amounts serosanginous fluid. Non-palpapable pulses on the R side. Good popliteal pulse. NEUROLOGICAL: Cranial nerves II through XII grossly intact. 5/5 muscle strength upper and lower extremities, bilaterally. LBKA. PSYCH: Depressed. Laboratory Results - last 24 hr 04/09/19 04/09/19 04/10/19 12:52 22:06 06:26 WBC RBC Hgb Hct MCV MCH MCHC RDW Plt Count MPV Absolute Neuts (auto) Neutrophils % Lymphocytes % Monocytes % Eosinophils % Basophils % Nucleated RBC % Sodium Potassium Chloride Carbon Dioxide Anion Gap BUN Creatinine Est GFR (CKD-EPI)AfAm Est GFR (CKD-EPI)NonAf POC Glucometer 190 193 223 Random Glucose Calcium Magnesium Random Vancomycin 04/10/19 04/10/19 04/10/19 07:20 07:20 07:20 WBC 28.1 H RBC 2.52 L Hgb 7.0 L Hct 22.1 L MCV 87.7 MCH 27.6 MCHC 31.4 L RDW 17.1 H Plt Count 294 MPV 8.6 Absolute Neuts (auto) 26.0 H Neutrophils % 92.8 H Lymphocytes % 3.3 L Monocytes % 3.3 L Eosinophils % 0.2 D Basophils % 0.4 Nucleated RBC % 0 Sodium 144 Potassium 4.2 Chloride 105 Carbon Dioxide 29 Anion Gap 10 BUN 32.8 H Creatinine 3.9 H Est GFR (CKD-EPI)AfAm 17.83 Est GFR (CKD-EPI)NonAf 15.39 POC Glucometer Random Glucose 204 H Calcium 7.7 L Magnesium 2.0 Random Vancomycin 18.0 Active Medications Generic Name Dose Route Start Last Admin Trade Name Freq PRN Reason Stop Dose Admin Albuterol Sulfate 1 amp 04/09/19 20:07 Ventolin 0.083% Nebulizer Soln - NEB Q4H PRN SHORT OF BREATH/WHEEZING Doxazosin Mesylate 4 mg 04/10/19 10:00 04/10/19 10:37 Cardura - PO Not Given DAILY [facility] Fluticasone Propionate 1 spray 04/10/19 10:00 04/10/19 10:47 Flonase - NS Not Given DAILY IGGY Gabapentin 100 mg 04/09/19 22:00 04/10/19 10:38 Neurontin - PO Not Given BID IGGY Heparin Sodium (Porcine) 5,000 unit 04/09/19 22:00 04/10/19 10:38 Heparin - SQ Not Given BID IGGY Sodium Chloride 1,000 mls @ 42 mls/hr 04/09/19 17:25 Normal Saline - IV ASDIR IGGY Piperacillin Sod/Tazobactam 50 mls @ 100 mls/hr 04/10/19 02:00 04/10/19 10:46 Sod 2.25 gm/ Dextrose IVPB 100 mls/hr Q8H-IV IGGY Administration Protocol Insulin Aspart 1 vial 04/09/19 22:00 04/09/19 22:20 Novolog Vial Sliding Scale - SQ Not Given HS IGGY Protocol Insulin Aspart 1 vial 04/10/19 07:00 04/10/19 06:30 Novolog Vial Sliding Scale - SQ 3 units TIDAC IGGY Administration Protocol Lidocaine 1 patch 04/10/19 10:00 04/10/19 10:38 Lidoderm Patch - TP Not Given DAILY [facility] Methadone HCl 2.5 mg 04/09/19 22:00 04/10/19 06:32 Dolophine - PO 2.5 mg TID IGGY Administration Miscellaneous 1 each 04/09/19 22:00 04/09/19 22:21 Lidoderm Patch Removal MC 1 each DAILY@2200 IGGY Administration Nifedipine 90 mg 04/10/19 10:00 04/10/19 10:38 Procardia Xl - PO Not Given DAILY IGG[facility] Petrolatum 1 applic 04/09/19 20:07 Vaseline TP DAILY PRN DRY SKIN Trazodone HCl 400 mg/ 450 mg 04/09/19 22:00 04/09/19 22:16 Trazodone HCl 50 mg PO 450 mg HS IGGY Administration Vancomycin HCl 125 mg 04/10/19 00:00 04/10/19 06:32 Vancomycin Oral Solution PO 125 mg Q6HPO IGGY Administration Microbiology 04/06/19 17:45 Foot - Right Gram Stain - Final 04/06/19 17:45 Foot - Right Wound Culture - Preliminary Proteus Vulgaris Presumptive Mrsa (Pbp2a Pos) Enterococcus Faecalis 04/07/19 18:00 Bone Gram Stain - Final 04/07/19 18:00 Bone Tissue Culture - Preliminary Morganella Morganii Proteus Vulgaris Group D Strep Or Entero Coccus Staphylococcus Latex Coag Pos Alpha Hemolytic Streptococcus 04/07/19 18:00 Bone Anaerobic Culture - Preliminary Pending Organism 04/07/19 17:30 Foot - Rt Transmetatarsal Amp. Site Gram Stain - Final 04/07/19 17:30 Foot - Rt Transmetatarsal Amp. Site Wound Culture - Preliminary Morganella Morganii Enterococcus Faecalis Staphylococcus Latex Coag Pos Proteus Species Pending Organism 04/09/19 10:42 Blood - Peripheral Venous Blood Culture - Preliminary NO GROWTH OBTAINED AFTER 24 HOURS, INCUBATION TO CONTINUE FOR 4 DAYS. 04/09/19 10:20 Blood - Peripheral Venous Blood Culture - Preliminary NO GROWTH OBTAINED AFTER 24 HOURS, INCUBATION TO CONTINUE FOR 4 DAYS. 04/08/19 16:10 Stool Clostridioides difficile Antigen - Final 04/08/19 16:10 Stool Clostridioides difficile Toxin Assay - Final 04/06/19 17:15 Blood - Peripheral Venous Blood Culture - Final Presumptive Mrsa (Pbp2a Pos) Streptococcus Mitis 04/06/19 17:45 Blood - Peripheral Venous Blood Culture - Final Mr S Aureus ASSESSMENT/PLAN: Luciano Judge is a 61 year old male with a past medical history of DM, HTN, ESRD on dialysis (TThS), left BKA, diabetic neuropathy, hx of MRSA bacteremia presenting for a sepsis from likely osteomyelitis of R foot. Sepsis from Osteomyelitis - elevated WBC and febrile 100.4, has been afebrile for 24 hours - foot x-ray with emphysematous changes, deformity, lucency, destructive changes of the distal head of third metatarsal, metatarsal head, base of R third proximal phalynx consistent with osteomyelitis - ID consulted, continue Zosyn and vancomycin, random vanco levels to guide treatment - random vanco level in the morning to redose, today 18.0 - bacteremia with blood culture growing MRSA, repeat blood cultures negative - wound culture with MRSA and Proteus vulgaris and intraoperative cultures as above - pathology results showing that bone margins are not clear, osteo involvement - seen by podiatry and has undergone TMA, has had washout, noted nec fasc throughout foot - POD day #0 R BKA - vascular surgery consulted, will continue to follow - ESR/CRP elevated - echo ordered to evaluate for ?endocarditis, showing normal LV function, size, function, normal EF, ?poor LV compliance, borderline aortic root dilation, trace mitral regurg, mild pericardial effusion - hyperbaric consult as per podiatry ESRD - dialysis next round on Saturday - avoid fluid overload - nephrology consulted, recs appreciated - continued dialysis on normal schedule Diarrhea - positive for c diff antigen - started on oral vancomycin 125mg q6h HTN - continue home meds - cardio consulted, recs appreciated DM - hold Levemir 12 units qAM, due to hypoglycemic episode, may resume if glucose levels stabilize or rise - ISS - BGM - A1c 10.8 - will require tight insulin dosing in the setting of osteomyelitis - endocrinology consulted, recs appreciated Anemia - likely in setting of chronic renal disease - iron studies showing anemia of chronic disease - given Epogen during dialysis - continue to monitor H/H - 2 units of blood with possible transfusion s/p OR, repeat CBC and monitoring as per ICU Shoulder pain/chronic pain - methadone 2.5mg tid, confirmed with [facility] and confirmed with patient's pharmacy [facility], last ordered and dispensed on 03/13 for a 30 day course, will resume while in the hospital - lidocaine patch - pain management consulted Hx of PTSD - trazodone 450mg qhs Prophylaxis - heparin 5000 units subq bid FEN - continue NS at 42cc/hr in setting of sepsis, monitor for fluid overload - continue to monitor electrolytes and replete as necessary - renal diet post surgery Dispo - transfer to ICU for monitoring Visit type - Emergency Visit Emergency Visit: Yes ED Registration Date: 04/06/19 Care time: The patient presented to the Emergency Department on the above date and was hospitalized for further evaluation of their emergent condition. - New Patient This patient is new to me today: No - Critical Care Critical Care patient: No
[2019-04-10] MEDS ORDERED: ROPIVACAINE HCL 0.5% 30ML VIAL ONE (11:26)
[2019-04-10] MEDS ORDERED: ONDANSETRON 4 MG/2 ML VIAL IVPUSH PRN ×2 (11:43→14:55)
[2019-04-10] MEDS ORDERED: SUCCINYLCHOLINE CHLORIDE 200 MG/10 ML SYRINGE ONE (12:08)
[2019-04-10] MEDS ORDERED: ROCURONIUM BROMIDE 50 MG/5 ML SYRINGE ONE (12:09)
[2019-04-10] MEDS ORDERED: VANCOMYCIN 500 MG VIAL (RESTRICTED TO ID ONLY) IVPB ONE (12:15)
[2019-04-10] MEDS ORDERED: PHENYLEPHRINE HCL 10 MG/1 ML SINGLE DOSE VIAL ONE (12:38)
[2019-04-10 13:44] LABS: ANISOCYTOSIS 1+; MACROCYTOSIS 0; PLATELET ESTIMATE NORMAL; TARGET CELLS 1+
--- NOTE | 2019-04-10 13:54 | PN ---
Progress Note, Physician History of Present Illness: POD#1 post I&D, resting on VM. - Current Medication List Current Medications: Active Medications Albuterol Sulfate (Ventolin 0.083% Nebulizer Soln -) 1 amp NEB Q4H PRN PRN Reason: SHORT OF BREATH/WHEEZING Chlorhexidine Gluconate (Hibiclens For Decolonization -) 1 applic TP HS IGGY Doxazosin Mesylate (Cardura -) 4 mg PO DAILY [facility] Last Admin: 04/10/19 10:37 Dose: Not Given Fentanyl (Sublimaze Injection -) 50 mcg IVPUSH [id number] PRN PRN Reason: PAIN-PACU ORDER X 4 DOSES ONLY Stop: 04/11/19 11:42 Fluticasone Propionate (Flonase -) 1 spray NS DAILY [facility] Last Admin: 04/10/19 10:47 Dose: Not Given Gabapentin (Neurontin -) 100 mg PO BID [facility] Last Admin: 04/10/19 10:38 Dose: Not Given Heparin Sodium (Porcine) (Heparin -) 5,000 unit SQ BID [facility] Last Admin: 04/10/19 10:38 Dose: Not Given Sodium Chloride (Normal Saline -) 1,000 mls @ 42 mls/hr IV ASDIR IGGY Piperacillin Sod/Tazobactam (Sod 2.25 gm/ Dextrose) 50 mls @ 100 mls/hr IVPB Q8H-IV IGGY; Protocol Last Admin: 04/10/19 10:46 Dose: 100 mls/hr Insulin Aspart (Novolog Vial Sliding Scale -) 1 vial SQ HS [facility]; Protocol Last Admin: 04/09/19 22:20 Dose: Not Given Insulin Aspart (Novolog Vial Sliding Scale -) 1 vial SQ TIDAC [facility]; Protocol Last Admin: 04/10/19 12:25 Dose: Not Given Lidocaine (Lidoderm Patch -) 1 patch TP DAILY [facility] Last Admin: 04/10/19 10:38 Dose: Not Given Methadone HCl (Dolophine -) 2.5 mg PO TID [facility] Last Admin: 04/10/19 06:32 Dose: 2.5 mg Miscellaneous (Lidoderm Patch Removal) 1 each MC DAILY@2200 [facility] Last Admin: 04/09/19 22:21 Dose: 1 each Mupirocin (Bactroban Ointment (For Decolonization) -) 1 applic NS BID [facility] Stop: 04/15/19 21:59 Nifedipine (Procardia Xl -) 90 mg PO DAILY [facility] Last Admin: 04/10/19 10:38 Dose: Not Given Ondansetron HCl (Zofran Injection) 4 mg IVPUSH Q6H PRN PRN Reason: NAUSEA AND/OR VOMITING Stop: 04/11/19 11:42 Petrolatum (Vaseline) 1 applic TP DAILY PRN PRN Reason: DRY SKIN Trazodone HCl 400 mg/ (Trazodone HCl 50 mg) 450 mg PO HS [facility] Last Admin: 04/09/19 22:16 Dose: 450 mg Vancomycin HCl (Vancomycin Oral Solution) 125 mg PO Q6HPO [facility] Last Admin: 04/10/19 12:25 Dose: Not Given - Objective Vital Signs: Vital Signs Temperature 99.6 F 04/10/19 10:00 Pulse Rate 97 H 04/10/19 10:00 Respiratory Rate 20 04/10/19 10:00 Blood Pressure 122/61 04/10/19 10:00 O2 Sat by Pulse Oximetry (%) 91 L 04/10/19 09:00 Constitutional: Yes: No Distress, Calm Neck: Yes: Supple Cardiovascular: Yes: Regular Rate and Rhythm Respiratory: Yes: Regular, Diminished, On Venti-Mask Gastrointestinal: Yes: Soft, Hypoactive Bowel Sounds Edema: No Labs: CBC, BMP 04/10/19 07:20 04/10/19 07:20 INR, PTT INR 1.39 (0.83-1.09) H 04/09/19 09:30 Problem List - Problems (1) Cellulitis of right foot Code(s): L03.115 - CELLULITIS OF RIGHT LOWER LIMB (2) ESRD (end stage renal disease) on dialysis Code(s): N18.6 - END STAGE RENAL DISEASE; Z99.2 - DEPENDENCE ON RENAL DIALYSIS (3) Uncontrolled diabetes mellitus Code(s): E11.65 - TYPE 2 DIABETES MELLITUS WITH HYPERGLYCEMIA Qualifiers: Diabetes mellitus type: type 2 Glycemic state: with hyperglycemia Qualified Code(s): E11.65 - Type 2 diabetes mellitus with hyperglycemia (4) Anemia Code(s): D64.9 - ANEMIA, UNSPECIFIED Qualifiers: Anemia type: due to chronic kidney disease Chronic kidney disease stage: on chronic dialysis Qualified Code(s): N18.6 - End stage renal disease; D63.1 - Anemia in chronic kidney disease; Z99.2 - Dependence on renal dialysis (5) Foot infection Code(s): L08.9 - LOCAL INFECTION OF THE SKIN AND SUBCUTANEOUS TISSUE, UNSP (6) Amputation, below knee, unilateral, traumatic Code(s): S88.119A - COMPLETE TRAUM AMP AT LEV BETW KN & ANKL, UNSP LOW LEG, INIT Qualifiers: Encounter type: subsequent encounter Laterality: left Qualified Code(s): S88.112D - Complete traumatic amputation at level between knee and ankle, left lower leg, subsequent encounter (7) Bacteremia due to Gram-positive bacteria Code(s): R78.81 - BACTEREMIA (8) ESRD (end stage renal disease) Code(s): N18.6 - END STAGE RENAL DISEASE (9) Peripheral vascular disease due to secondary diabetes Code(s): E13.51 - OTH DIABETES W DIABETIC PERIPHERAL ANGIOPATHY W/O GANGRENE (10) Diabetic neuropathy Code(s): E11.40 - TYPE 2 DIABETES MELLITUS WITH DIABETIC NEUROPATHY, UNSP Qualifiers: Diabetes mellitus type: type 2 Diabetes mellitus complication detail: diabetic polyneuropathy Qualified Code(s): E11.42 - Type 2 diabetes mellitus with diabetic polyneuropathy (11) Osteomyelitis Code(s): M86.9 - OSTEOMYELITIS, UNSPECIFIED Qualifiers: Osteomyelitis type: other chronic Osteomyelitis location: foot (12) Type 2 diabetes mellitus with foot ulcer Code(s): E11.621 - TYPE 2 DIABETES MELLITUS WITH FOOT ULCER; L97.509 - NON- PRESSURE CHRONIC ULCER OTH PRT UNSP FOOT W UNSP SEVERITY Qualifiers: Diabetes mellitus oysterman insulin use: with usp use Qualified Code( s): E11.621 - Type 2 diabetes mellitus with foot ulcer; L97.509 - Non-pressure chronic ulcer of other part of unspecified foot with unspecified severity; Z79.4 - USP (current) use of insulin Assessment/Plan 10/15/2018 Echo: Mod cLVH with normal LV and RV size and fxn, tr-mild MR 09/30/2017 CHAKA: Normal biventricular size and fxn, mild AR, KS, MR, no SIS thrombus or vegetations 1. MRSA bacteremia from osteomyelitis of R foot s/p open transmetatarsal amputation and repeat I&D 2. ESRD on HD TThS, suspected diabetic nephropathy 3. Moderate pericardial effusion referable to uremic pericarditis since resolved 4. Insulin-dependent Type 2 DM c/b neuropathy uncontrolled, A1C 10.8 5. HTN/HCVD 6. PAD 7. Anemia of chronic kidney disease 8. H/o Right IJ/SCV thrombus probably catheter related 9. PAD s/p left BKA PLAN: 1. Vanco/Zosyn course per ID, f/u cultures to document bacteremia clearance, wound care, HBO2, repeat surveillance cx demonstrating clearance. Await bone biopsy 2. Continue Lopressor 50 bid, Cardura 4 qd, Procardia XL 90 qd 3. Would defer CHAKA unless persistently bacteremic and we are looking for additional source besides established right foot osteomyeleitis 4. Monitor Hgb and transfuse as needed to maintain Hgb>7.0.
--- NOTE | 2019-04-10 14:17 | CONSULT ---
Consultation: REQUESTING PROVIDER: CONSULT REQUEST: We have been asked to medically evaluate this patient for ICU monitoring post op. HISTORY OF PRESENT ILLNESS: 64 y/o/m with PMHx of PMHx of DM, HTN, ESRD (T//Sat), left BKA, Neuropathy who presented to the ED with a non healing right foot wound. Patient reports that around 6 weeks ago he injured his right foot while exiting the elevator. He reports that the wound became foul smelling with discharge 6 days prior to admission. Patient has had multiple lower extremity amputations in the past. Patient found to have osteomyelitis and wet gangrene of the right foot. He had a right foot guillotine transmetatarsal amputation on 04/07 during this admission but needed further amputation due to more proximal wound with nec fasc tissue on plantar aspect of foot. Patient had a foot xray with emphysematous changes along medial aspect of the ankle and posterior/superior calcaneus (area of pain). Patient now POD#0 from right BKA guillotine amputation. Will eventually go back to OR to have wound closed. Patient has cultures including blood and wound cultures growing multiple organisms including MRSA. Repeat blood cultures no longer growing MRSA. Patient also C- diff antigen positive, toxin negative. Patient post op and still sleepy from anesthesia as he received local and general anesthesia. Responding to physical stimuli. EBL 100ml REVIEW OF SYSTEMS: unable to obtain PHYSICAL EXAMINATION Vital Signs - 24 hr 04/09/19 04/09/19 04/09/19 13:55 14:03 14:25 Temperature 98.9 F 98.4 F Pulse Rate 89 89 60 Respiratory 18 18 18 Rate Blood Pressure 113/62 113/62 120/62 O2 Sat by Pulse 95 95 Oximetry (%) 04/09/19 04/09/19 04/09/19 14:30 15:00 15:30 Temperature Pulse Rate 62 68 70 Respiratory 18 18 18 Rate Blood Pressure 118/60 102/60 104/60 O2 Sat by Pulse Oximetry (%) 04/09/19 04/09/19 04/09/19 16:00 16:30 17:00 Temperature Pulse Rate 89 100 H 98 H Respiratory 18 18 18 Rate Blood Pressure 106/61 112/60 124/66 O2 Sat by Pulse Oximetry (%) 04/09/19 04/09/19 04/09/19 17:30 18:00 18:16 Temperature Pulse Rate 60 90 88 Respiratory 18 18 18 Rate Blood Pressure 118/64 120/60 124/66 O2 Sat by Pulse Oximetry (%) 04/09/19 04/10/19 04/10/19 22:00 05:35 09:00 Temperature 98.3 F 99.2 F Pulse Rate 120 H 96 H Respiratory 21 H 20 Rate Blood Pressure 134/72 131/66 O2 Sat by Pulse 91 L Oximetry (%) 04/10/19 10:00 Temperature 99.6 F Pulse Rate 97 H Respiratory 20 Rate Blood Pressure 122/61 O2 Sat by Pulse Oximetry (%) GENERAL: sleepy, responsive to physical stimuli, slowly becoming more talkative and following commands HEAD: NC/AT EYES: PERRL EARS, NOSE, THROAT: dry mucous membranes NECK: trachea midline, supple LUNGS: diminished breath sounds bilaterally, clear to auscultation bilaterally. No wheezes, and no crackles. No accessory muscle use. HEART: Tachycardic ABDOMEN: Soft, nontender, not distended, MUSCULOSKELETAL: Left BKA, s/p Right BKA today, brace in place over RLE EXTREMITIES: warm. LUE fistula with palpable thrill NEUROLOGICAL: responds to physical stimuli SKIN: Warm, dry Laboratory Results - last 24 hr 04/07/19 04/09/19 04/10/19 21:00 22:06 06:26 WBC RBC Hgb Hct MCV MCH MCHC RDW Plt Count MPV Absolute Neuts (auto) Neutrophils % Lymphocytes % Monocytes % Eosinophils % Basophils % Nucleated RBC % Sodium Potassium Chloride Carbon Dioxide Anion Gap BUN Creatinine Est GFR (CKD-EPI)AfAm Est GFR (CKD-EPI)NonAf POC Glucometer 193 223 Random Glucose Calcium Magnesium Random Vancomycin Blood Type B POSITIVE Antibody Screen Negative Crossmatch IS Only See Detail 04/10/19 04/10/19 04/10/19 07:20 07:20 07:20 WBC 28.1 H RBC 2.52 L Hgb 7.0 L Hct 22.1 L MCV 87.7 MCH 27.6 MCHC 31.4 L RDW 17.1 H Plt Count 294 MPV 8.6 Absolute Neuts (auto) 26.0 H Neutrophils % 92.8 H Lymphocytes % 3.3 L Monocytes % 3.3 L Eosinophils % 0.2 D Basophils % 0.4 Nucleated RBC % 0 Sodium 144 Potassium 4.2 Chloride 105 Carbon Dioxide 29 Anion Gap 10 BUN 32.8 H Creatinine 3.9 H Est GFR (CKD-EPI)AfAm 17.83 Est GFR (CKD-EPI)NonAf 15.39 POC Glucometer Random Glucose 204 H Calcium 7.7 L Magnesium 2.0 Random Vancomycin 18.0 Blood Type Antibody Screen Crossmatch IS Only Active Medications Generic Name Dose Route Start Last Admin Trade Name Freq PRN Reason Stop Dose Admin Albuterol Sulfate 1 amp 04/09/19 20:07 Ventolin 0.083% Nebulizer Soln - NEB Q4H PRN SHORT OF BREATH/WHEEZING Chlorhexidine Gluconate 1 applic 04/10/19 22:00 Hibiclens For Decolonization - TP HS IGGY Doxazosin Mesylate 4 mg 04/10/19 10:00 04/10/19 10:37 Cardura - PO Not Given DAILY IGG[facility] Fentanyl 50 mcg 04/10/19 11:43 Sublimaze Injection - IVPUSH 04/11/19 11:42 [id number] PRN PAIN-PACU ORDER X 4 DOSES ONLY Fluticasone Propionate 1 spray 04/10/19 10:00 04/10/19 10:47 Flonase - NS Not Given DAILY [facility] Gabapentin 100 mg 04/09/19 22:00 04/10/19 10:38 Neurontin - PO Not Given BID [facility] Heparin Sodium (Porcine) 5,000 unit 04/09/19 22:00 04/10/19 10:38 Heparin - SQ Not Given BID [facility] Sodium Chloride 1,000 mls @ 42 mls/hr 04/09/19 17:25 Normal Saline - IV ASDIR IGG[facility] Piperacillin Sod/Tazobactam 50 mls @ 100 mls/hr 04/10/19 02:00 04/10/19 10:46 Sod 2.25 gm/ Dextrose IVPB 100 mls/hr Q8H-IV [facility] Administration Protocol Insulin Aspart 1 vial 04/09/19 22:00 04/09/19 22:20 Novolog Vial Sliding Scale - SQ Not Given HS [facility] Protocol Insulin Aspart 1 vial 04/10/19 07:00 04/10/19 12:25 Novolog Vial Sliding Scale - SQ Not Given TIDAC [facility] Protocol Lidocaine 1 patch 04/10/19 10:00 04/10/19 10:38 Lidoderm Patch - TP Not Given DAILY [facility] Methadone HCl 2.5 mg 04/09/19 22:00 04/10/19 06:32 Dolophine - PO 2.5 mg TID IGG[facility] Administration Miscellaneous 1 each 04/09/19 22:00 04/09/19 22:21 Lidoderm Patch Removal MC 1 each DAILY@2200 [facility] Administration Mupirocin 1 applic 04/10/19 22:00 Bactroban Ointment (For Decolonization) - NS 04/15/19 21:59 BID [facility] Nifedipine 90 mg 04/10/19 10:00 04/10/19 10:38 Procardia Xl - PO Not Given DAILY [facility] Ondansetron HCl 4 mg 04/10/19 11:43 Zofran Injection IVPUSH 04/11/19 11:42 Q6H PRN NAUSEA AND/OR VOMITING Petrolatum 1 applic 04/09/19 20:07 Vaseline TP DAILY PRN DRY SKIN Trazodone HCl 400 mg/ 450 mg 04/09/19 22:00 04/09/19 22:16 Trazodone HCl 50 mg PO 450 mg HS [facility] Administration Vancomycin HCl 125 mg 04/10/19 00:00 04/10/19 12:25 Vancomycin Oral Solution PO Not Given Q6HPO [facility] ASSESSMENT/PLAN: 64 y/o/m with PMHx of PMHx of DM, HTN, ESRD (//Sat), left BKA, Neuropathy who presented to the ED with a non healing right foot wound. Patient found to have osteomyelitis and wet gangrene of the right foot. He had a right foot guillotine transmetatarsal amputation on 04/07 during this admission but needed further amputation, patient now POD#0 from right BKA guillotine amputation. #Neuro - s/p surgery with general and local anesthesia, still recovering. Continue to monitor mental status - Hx of PTSD, trazodone 450mg qhs #Cardio - Continue Lopressor 50 bid, Cardura 4 qd, Procardia XL 90 qd - cardio consulted, recs appreciated - Moderate pericardial effusion referable to uremic pericarditis since resolved - echo ordered to evaluate for questionable endocarditis, showed normal LV function, size, function, normal EF, ?poor LV compliance, borderline aortic root dilation, trace mitral regurg, mild pericardial effusion #Pulm - maintain SpO2 >90% - Ventolin 1amp Q4hr PRN #GI - iron studies showing anemia of chronic disease - given Epogen during dialysis - continue to monitor H/H. 7.0/22.1 pre-op. Transfused in OR and 1unit PRBC post -op. Will monitor hgb with CBC - monitor H&H, transfuse as needed #Renal - dialysis next round on Saturday - avoid fluid overload - nephrology consulted, recs appreciated - continued dialysis on normal schedule #Endo - hold Levemir 12 units qAM, due to hypoglycemic episode, may resume if glucose levels stabilize or rise - ISS - BGM - A1c 10.8 - Monitor blood sugar closely as pts with CKD tend to be very sensitive to Insulin and develop hypoglycemia frequently - endocrinology consulted, recs appreciated #MSK - POD#0 for Right BKA - foot x-ray with emphysematous changes, deformity, lucency, destructive changes of the distal head of third metatarsal, metatarsal head, base of R third proximal phalynx consistent with osteomyelitis - pathology results showed that bone margins were not clear on initial amputation, osteo involvement - patient was initially seen by podiatry and has undergone TMA, has had washout , noted nec fasc throughout foot and therefore required BKA - vascular surgery consulted, will continue to follow - ESR/CRP elevated - hyperbaric consult as per podiatry - methadone 2.5mg tid, confirmed with [facility] and confirmed with patient's pharmacy [facility], last ordered and dispensed on 03/13 for a 30 day course, resumed while in the hospital - lidocaine patch - pain management consulted #ID - WBC 28.1, afebrile over last 24 hours, monitor - ID consulted, continue Zosyn and vancomycin, random vanco levels to guide treatment - random vanco level in the morning to redose, today 18.0 - bacteremia with blood culture growing MRSA, repeat blood cultures negative - wound culture with MRSA and Proteus vulgaris #Prophylaxis - holding chemical AC as patient is post op #FEN - NS @ 42mls/hr - renal diet as tolerated - monitor and replete lytes as needed #Disposition - ICU monitoring Visit type - Emergency Visit Emergency Visit: Yes ED Registration Date: 04/06/19 Care time: The patient presented to the Emergency Department on the above date and was hospitalized for further evaluation of their emergent condition. - New Patient This patient is new to me today: Yes Date on this admission: 04/10/19 - Critical Care Critical Care patient: Yes Total Critical Care Time (in minutes): 36 Critical Care Statement: The care of this patient involved high complexity decision making to prevent further life threatening deterioration of the patient 's condition and/or to evaluate & treat vital organ system(s) failure or risk of failure. ATTENDING PHYSICIAN STATEMENT I saw and evaluated the patient. I reviewed the resident's note and discussed the case with the resident. I agree with the resident's findings and plan as documented. SUBJECTIVE: OBJECTIVE: ASSESSMENT AND PLAN:
[2019-04-10] MEDS ORDERED: PETROLATUM, WHITE 30 GM TUBE TP PRN (14:55)
[2019-04-10] MEDS ORDERED: ALBUTEROL SO4 0.083% IH SOL 2.5 MG/3 ML VIAL.NEB. NEB PRN (14:55)
[2019-04-10] MEDS: SODIUM CHLORIDE 1,000 ML IV SCH (15:00)
--- NOTE | 2019-04-10 15:04 | PN ---
Teaching Attending Note Name of Resident: Srini Adame ATTENDING PHYSICIAN STATEMENT I saw and evaluated the patient. I reviewed the resident's note and discussed the case with the resident. I agree with the resident's findings and plan as documented. SEEN AND EXAMINED BY ME PRIOR TO OR SUBJECTIVE: Ongoing R foot post surgical pain POD 3 s/p transmetatarsal amputation. No fever/chills. OBJECTIVE: Afebrile, Hemodynamically Stable Last Vital Signs Temp Pulse Resp BP Pulse Ox 99.6 F 97 H 20 122/61 91 L 04/10/19 10:00 04/10/19 10:00 04/10/19 10:00 04/10/19 10:00 04/10/19 09:00 Heart - S1, S2, RRR Chest - clear to auscultation Abdomen - Soft, non-tender. Bowel Sounds normal Extremities - LLE BKA, R foot surgical site dressed, dressing stained with serosanguinous discharge. Edema+, venous stasis skin changes. Laboratory Results - last 24 hr 04/07/19 04/09/19 04/10/19 21:00 22:06 06:26 WBC RBC Hgb Hct MCV MCH MCHC RDW Plt Count MPV Absolute Neuts (auto) Neutrophils % Neutrophils % (Manual) Band Neutrophils % Lymphocytes % Lymphocytes % (Manual) Monocytes % Monocytes % (Manual) Eosinophils % Eosinophils % (Manual) Basophils % Basophils % (Manual) Myelocytes % (Man) Promyelocytes % (Man) Blast Cells % (Manual) Nucleated RBC % Metamyelocytes Hypochromia Platelet Estimate Polychromasia Poikilocytosis Anisocytosis Microcytosis Macrocytosis Target Cells Sodium Potassium Chloride Carbon Dioxide Anion Gap BUN Creatinine Est GFR (CKD-EPI)AfAm Est GFR (CKD-EPI)NonAf POC Glucometer 193 223 Random Glucose Calcium Magnesium Random Vancomycin Blood Type B POSITIVE Antibody Screen Negative Crossmatch IS Only See Detail 04/10/19 04/10/19 04/10/19 07:20 07:20 07:20 WBC 28.1 H RBC 2.52 L Hgb 7.0 L Hct 22.1 L MCV 87.7 MCH 27.6 MCHC 31.4 L RDW 17.1 H Plt Count 294 MPV 8.6 Absolute Neuts (auto) 26.0 H Neutrophils % 92.8 H Neutrophils % (Manual) 94.0 H Band Neutrophils % 0.0 Lymphocytes % 3.3 L Lymphocytes % (Manual) 4.0 L D Monocytes % 3.3 L Monocytes % (Manual) 2 L Eosinophils % 0.2 D Eosinophils % (Manual) 0.0 D Basophils % 0.4 Basophils % (Manual) 0.0 Myelocytes % (Man) 0 Promyelocytes % (Man) 0 Blast Cells % (Manual) 0 Nucleated RBC % 0 Metamyelocytes 0 Hypochromia 1+ Platelet Estimate Normal Polychromasia 1+ Poikilocytosis 0 Anisocytosis 1+ Microcytosis 0 Macrocytosis 0 Target Cells 1+ Sodium 144 Potassium 4.2 Chloride 105 Carbon Dioxide 29 Anion Gap 10 BUN 32.8 H Creatinine 3.9 H Est GFR (CKD-EPI)AfAm 17.83 Est GFR (CKD-EPI)NonAf 15.39 POC Glucometer Random Glucose 204 H Calcium 7.7 L Magnesium 2.0 Random Vancomycin 18.0 Blood Type Antibody Screen Crossmatch IS Only Current Medications Generic Name Dose Route Start Last Admin Trade Name Freq PRN Reason Stop Dose Admin Albuterol Sulfate 1 amp 04/10/19 14:55 Ventolin 0.083% Nebulizer Soln - NEB Q4H PRN SHORT OF BREATH/WHEEZING Chlorhexidine Gluconate 1 applic 04/10/19 22:00 Hibiclens For Decolonization - TP HS IGGY Doxazosin Mesylate 4 mg 04/11/19 10:00 Cardura - PO DAILY [facility] Fentanyl 50 mcg 04/10/19 14:55 Sublimaze Injection - IVPUSH 04/11/19 11:42 [id number] PRN PAIN-PACU ORDER X 4 DOSES ONLY Fluticasone Propionate 1 spray 04/11/19 10:00 Flonase - NS DAILY [facility] Gabapentin 100 mg 04/10/19 22:00 Neurontin - PO BID [facility] Heparin Sodium (Porcine) 5,000 unit 04/10/19 22:00 Heparin - SQ BID IGG[facility] Sodium Chloride 1,000 mls @ 42 mls/hr 04/10/19 14:55 Normal Saline - IV ASDIR IGG[facility] Piperacillin Sod/Tazobactam 50 mls @ 100 mls/hr 04/10/19 18:00 Sod 2.25 gm/ Dextrose IVPB Q8H-IV [facility] Protocol Insulin Aspart 1 vial 04/10/19 22:00 Novolog Vial Sliding Scale - SQ HS IGG[facility] Protocol Insulin Aspart 1 vial 04/10/19 16:30 Novolog Vial Sliding Scale - SQ TIDAC [facility] Protocol Lidocaine 1 patch 04/11/19 10:00 Lidoderm Patch - TP DAILY [facility] Methadone HCl 2.5 mg 04/10/19 22:00 Dolophine - PO TID [facility] Miscellaneous 1 each 04/10/19 22:00 Lidoderm Patch Removal MC DAILY@2200 [facility] Mupirocin 1 applic 04/10/19 22:00 Bactroban Ointment (For Decolonization) - NS 04/15/19 21:59 BID [facility] Nifedipine 90 mg 04/11/19 10:00 Procardia Xl - PO DAILY [facility] Ondansetron HCl 4 mg 04/10/19 14:55 Zofran Injection IVPUSH 04/11/19 11:42 Q6H PRN NAUSEA AND/OR VOMITING Petrolatum 1 applic 04/10/19 14:55 Vaseline TP DAILY PRN DRY SKIN Trazodone HCl 400 mg/ 450 mg 04/10/19 22:00 Trazodone HCl 50 mg PO [facility] Vancomycin HCl 125 mg 04/10/19 18:00 Vancomycin Oral Solution PO Q6HPO [facility] Home Medications Medication Instructions Recorded Albuterol 0.083% Nebulizer Coretta 1 amp NEB Q4H PRN #120 amp 08/23/17 [Ventolin 0.083% Nebulizer Soln -] Fluticasone Prop 0.05% Nasal 1 - 2 spray NS DAILY #1 spray.pump 08/23/17 [Flonase -] Doxazosin Mesylate [Cardura -] 4 mg PO DAILY tablet 10/06/17 Gabapentin [Neurontin -] 100 mg PO BID capsule 10/06/17 Insulin Sliding Scale [Novolog 1 vial SQ ACHS units 10/06/17 Vial Sliding Scale -] Lidocaine 5% Patch [Lidoderm -] 1 patch TP DAILY patch 10/06/17 Lidocaine Patch Removal [Lidoderm 1 each MC DAILY@2200 each 10/06/17 Patch Removal] Insulin (Levemir) [Levemir Vial] 12 unit SQ DAILY@0700 04/07/19 Nifedipine ER [Procardia XL -] 90 mg PO DAILY 04/07/19 traZODone HCL [Desyrel -] 450 mg PO HS 04/07/19 Microbiology 04/06/19 17:45 Foot - Right Gram Stain - Final 04/06/19 17:45 Foot - Right Wound Culture - Preliminary Proteus Vulgaris Presumptive Mrsa (Pbp2a Pos) Enterococcus Faecalis 04/07/19 18:00 Bone Gram Stain - Final 04/07/19 18:00 Bone Tissue Culture - Preliminary Morganella Morganii Proteus Vulgaris Group D Strep Or Entero Coccus Staphylococcus Latex Coag Pos Alpha Hemolytic Streptococcus 04/07/19 18:00 Bone Anaerobic Culture - Preliminary Pending Organism 04/07/19 17:30 Foot - Rt Transmetatarsal Amp. Site Gram Stain - Final 04/07/19 17:30 Foot - Rt Transmetatarsal Amp. Site Wound Culture - Preliminary Morganella Morganii Enterococcus Faecalis Staphylococcus Latex Coag Pos Proteus Species Pending Organism 04/09/19 10:42 Blood - Peripheral Venous Blood Culture - Preliminary NO GROWTH OBTAINED AFTER 24 HOURS, INCUBATION TO CONTINUE FOR 4 DAYS. 04/09/19 10:20 Blood - Peripheral Venous Blood Culture - Preliminary NO GROWTH OBTAINED AFTER 24 HOURS, INCUBATION TO CONTINUE FOR 4 DAYS. 04/08/19 16:10 Stool Clostridioides difficile Antigen - Final 04/08/19 16:10 Stool Clostridioides difficile Toxin Assay - Final 04/06/19 17:15 Blood - Peripheral Venous Blood Culture - Final Presumptive Mrsa (Pbp2a Pos) Streptococcus Mitis 04/06/19 17:45 Blood - Peripheral Venous Blood Culture - Final Mr S Aureus ASSESSMENT/PLAN: 63 year old male with PMhx of ESRD on HD (TTS), IDDM, HTN, PVD s/p L BKA, Diabetic neuropathy, prior h/o MRSA bacteremia 09/2017 suspected from HD catheter , Right IJ thrombus in 09/2017 (suspected catheter related) admitted with progressive right foot swelling, redness, foul smelling discharge, chills. Right foot xray: soft tissue swelling with soft tissue emphysematous, deformities consistent with osteomyelitis noted 1. Sepsis secondary to R Foot Osteomyelitis/Cellulitis with Bacteremia POD 3 s/p transmetatarsal amputation. MRSA.Strep mitis Bacteremia - source ?foot versus AVF Wound/Surgical/Bone Cx - polymicrobial as above. Blood Cx - Strep mitis/MRSA, repeat BCx negative Fever resolving but significant leukocytosis, WBC 28.1 Receiving IV Zosyn/Vancomycin TTE no evidence of vegetations - Cardiology to please comment on utility of CHAKA to exclude endocarditis. Podiatry to return to OR for amputation today due to non-healing, spreading infection. 2. ESRD on HD TTS via UE AVF No signs of infection at fistula site On IV Zosyn/Vancomycin Repeat Blood Cx negative 3. DM 2 - uncontrolled, A1C 10.8. Hyperglycemia sec to infection/poor compliance Maintain on Novolog sliding scale. Levemir held. 4. HTN - Continue Nifedipine, Doxazosin 5. ESRD on HD TTS - Nephrology following. 6. Normocytic Anemia likely sec to ESRD - Procrit as per Nephrology. H/H low at 7.0/22 - 2 units PRBCs on hold for OR. 7. Chronic Pain Syndrome - Methadone dose confirmed and started. Pain Management consulted for further pain control post-op. 8. Cdiff Ag positive/Toxin negative - started on Vanomycin PO. ID following. DVT Px - Heparin SQ
[2019-04-10] MEDS ORDERED: PT OWN MED DRAWER 7, Y5N ONE (19:08)
[2019-04-10] MEDS: ACETAMINOPHEN 1000 MG/100 ML VIAL (NON FORMULARY) IVPB PRN (21:01)
[2019-04-10 21:36] LABS: HEMATOCRIT 23.1 % (35.4-49); HEMOGLOBIN 7.1 GM/dL (11.7-16.9); MCH 27.1 pg (25.7-33.7); MCHC 30.9 g/dl (32.0-35.9); MEAN CELL VOLUME 87.8 fl (80-96); MEAN PLT VOLUME 8.4 fl (7.5-11.1); PLATELET COUNT 236 K/MM3 (134-434); RBC 2.63 M/mm3 (4.00-5.60); RDW 16.6 % (11.9-15.9); WHITE BLOOD COUNT 22.4 K/mm3 (4.0-10.0)
[2019-04-10] MEDS: TRAZODONE HCL PO SCH (21:40)
[2019-04-10] MEDS: MUPIROCIN 2% TOPICAL OINTMENT FOR DECOLONIZATION NS SCH (21:45)
[2019-04-10] MEDS: CHLORHEXIDINE GLUCONATE 4% CLEANSER FOR DECOLONIZATION TP SCH (21:45)
[2019-04-10] MEDS: LIDOCAINE PATCH REMOVAL MC SCH (21:55)
[2019-04-10] MEDS ORDERED: LIDOCAINE PATCH REMOVAL MC SCH (22:00)
[2019-04-10] MEDS ORDERED: HEPARIN NA (PORCINE) 5,000 UNITS/ML 1ML VIAL SQ SCH (22:00)
[2019-04-11] MEDS: VANCOMYCIN 250 MG/5 ML ORAL SOLUTION PO SCH ×4 (00:14→17:20)
[2019-04-11] MEDS ORDERED: DEXTROSE 5%-WATER - 50 ML IVPB ONE ×3 (01:12→16:57)
[2019-04-11] MEDS ORDERED: PIPERACILLIN/TAZOBACTAM 2.25 GM VIAL IVPB ONE ×3 (01:12→16:57)
[2019-04-11] MEDS: PIPERACILLIN/TAZOB 2.25 GM 2.25 GM in DEXTROSE 5%-WATER - 50 ML IVPB SCH ×3 (01:13→17:20)
[2019-04-11] MEDS ORDERED: SODIUM CHLORIDE 250 ML IV PRN (06:21)
[2019-04-11 06:44] LABS: HEMATOCRIT 27.5 % (35.4-49); HEMOGLOBIN 8.8 GM/dL (11.7-16.9); MCH 27.8 pg (25.7-33.7); MCHC 32.1 g/dl (32.0-35.9); MEAN CELL VOLUME 86.8 fl (80-96); MEAN PLT VOLUME 8.8 fl (7.5-11.1); PLATELET COUNT 266 K/MM3 (134-434); RBC 3.17 M/mm3 (4.00-5.60); RDW 16.7 % (11.9-15.9); WHITE BLOOD COUNT 20.1 K/mm3 (4.0-10.0)
[2019-04-11] MEDS: METHADONE HCL 5 MG TABLET PO SCH ×3 (06:47→21:36)
[2019-04-11] MEDS: ACETAMINOPHEN 1000 MG/100 ML VIAL (NON FORMULARY) IVPB PRN (06:48)
[2019-04-11 06:50] LABS: INR 1.27 (0.83-1.09)
[2019-04-11 07:09] LABS: CREATININE 4.7 mg/dL (0.55-1.3); MAGNESIUM 2.1 mg/dL (1.8-2.4); PHOSPHOROUS 5.5 mg/dL (2.5-4.9); POTASSIUM 4.4 mmol/L (3.5-5.1)
[2019-04-11 07:19] LABS: CALCIUM 6.9 mg/dL (8.5-10.1)
[2019-04-11] MEDS: INSULIN SLIDING SCALE (NOVOLOG) 1 VIAL SQ SCH ×4 (07:43→22:24)
[2019-04-11] MEDS ORDERED: EPOETIN ALFA 20,000 UNIT/1 ML VIAL IVPUSH ONE (08:00)
[2019-04-11] MEDS ORDERED: VANCOMYCIN 1 GM in D5W (PRE-DOCKED) 1,000 MG/250 ML IVPB ONE (08:00)
[2019-04-11] MEDS: ALBUMIN HUMAN 25% 12.5 GM/50 ML VIAL IVPB SCH ×2 (09:12→09:13)
[2019-04-11] MEDS ORDERED: PT OWN MED DRAWER 7, Y5N ONE ×2 (09:56→21:29)
[2019-04-11] MEDS ORDERED: FLU VACCINE QUAD 60 MCG/0.5 ML (MDV 19-20) IM ONE (10:57)
[2019-04-11] MEDS ORDERED: HYDROmorphone HCl 2 MG/ML VIAL IVPUSH STA (10:57)
[2019-04-11] MEDS: NIFEdipine E.R. 90 MG TABLET (FP) PO SCH (11:53)
[2019-04-11] MEDS: GABAPENTIN 100 MG CAPSULE (FP) PO SCH ×2 (11:54→21:36)
[2019-04-11] MEDS: FLUTICASONE PROP 0.05% 16 GM NASAL SPRAY NS SCH (11:55)
[2019-04-11] MEDS: LIDOCAINE 5% TOPICAL PATCH TP SCH (11:55)
[2019-04-11] MEDS: MUPIROCIN 2% TOPICAL OINTMENT FOR DECOLONIZATION NS SCH ×2 (11:56→21:36)
[2019-04-11] MEDS: DOXAZOSIN MESYLATE 4 MG TABLET PO SCH (11:56)
--- NOTE | 2019-04-11 12:23 | PN ---
Progress Note, Physician History of Present Illness: post amputation doing well no complaints looks good - Current Medication List Current Medications: Active Medications Acetaminophen (Ofirmev Injection -) 1,000 mg IVPB Q6H PRN PRN Reason: PAIN LEVEL 1-5 Last Admin: 04/11/19 06:48 Dose: 1,000 mg Albuterol Sulfate (Ventolin 0.083% Nebulizer Soln -) 1 amp NEB Q4H PRN PRN Reason: SHORT OF BREATH/WHEEZING Chlorhexidine Gluconate (Hibiclens For Decolonization -) 1 applic TP HS [facility] Last Admin: 04/10/19 21:45 Dose: 1 applic Doxazosin Mesylate (Cardura -) 4 mg PO DAILY [facility] Last Admin: 04/11/19 11:56 Dose: 4 mg Fluticasone Propionate (Flonase -) 1 spray NS DAILY [facility] Last Admin: 04/11/19 11:55 Dose: 1 spray Gabapentin (Neurontin -) 100 mg PO BID [facility] Last Admin: 04/11/19 11:54 Dose: 100 mg Hydromorphone HCl (Dilaudid Vial -) 2 mg IVPUSH Q6H PRN PRN Reason: PAIN LEVEL 6-10 Sodium Chloride (Normal Saline -) 1,000 mls @ 42 mls/hr IV ASDIR IGG[facility] Last Admin: 04/10/19 15:00 Dose: 42 mls/hr Piperacillin Sod/Tazobactam (Sod 2.25 gm/ Dextrose) 50 mls @ 100 mls/hr IVPB Q8H-IV [facility]; Protocol Last Admin: 04/11/19 11:51 Dose: 100 mls/hr Sodium Chloride (Normal Saline -) 250 mls @ 3,000 mls/hr IV PRN PRN PRN Reason: Hypotension during Dialysis Stop: 04/12/19 06:21 Insulin Aspart (Novolog Vial Sliding Scale -) 1 vial SQ HS [facility]; Protocol Last Admin: 04/10/19 22:38 Dose: Not Given Insulin Aspart (Novolog Vial Sliding Scale -) 1 vial SQ TIDAC [facility]; Protocol Last Admin: 04/11/19 11:56 Dose: 2 units Lidocaine (Lidoderm Patch -) 1 patch TP DAILY [facility] Last Admin: 04/11/19 11:55 Dose: 1 patch Methadone HCl (Dolophine -) 2.5 mg PO TID [facility] Last Admin: 04/11/19 06:47 Dose: 2.5 mg Miscellaneous (Lidoderm Patch Removal) 1 each MC DAILY@2200 [facility] Last Admin: 04/10/19 21:55 Dose: Not Given Mupirocin (Bactroban Ointment (For Decolonization) -) 1 applic NS BID [facility] Stop: 04/15/19 21:59 Last Admin: 04/11/19 11:56 Dose: 1 applic Nifedipine (Procardia Xl -) 90 mg PO DAILY [facility] Last Admin: 04/11/19 11:53 Dose: 90 mg Petrolatum (Vaseline) 1 applic TP DAILY PRN PRN Reason: DRY SKIN Trazodone HCl 400 mg/ (Trazodone HCl 50 mg) 450 mg PO HS [facility] Last Admin: 04/10/19 21:40 Dose: 450 mg Vancomycin HCl (Vancomycin Oral Solution) 125 mg PO Q6HPO [facility] Last Admin: 04/11/19 12:03 Dose: 125 mg - Objective Vital Signs: Vital Signs Temperature 97.5 F L 04/11/19 10:00 Pulse Rate 80 04/11/19 10:10 Respiratory Rate 20 04/11/19 10:10 Blood Pressure 122/68 04/11/19 10:10 O2 Sat by Pulse Oximetry (%) 98 04/11/19 09:00 Constitutional: Yes: No Distress, Calm Cardiovascular: Yes: S1, S2 Respiratory: Yes: Regular, CTA Bilaterally Gastrointestinal: Yes: Normal Bowel Sounds, Soft Musculoskeletal: Yes: Other Extremities: Yes: Other Wound/Incision: Yes: Dressing Dry and Intact Neurological: Yes: Alert, Oriented Psychiatric: Yes: Alert, Oriented Labs: CBC, BMP 04/11/19 06:00 04/11/19 06:00 INR, PTT INR 1.27 (0.83-1.09) H 04/11/19 06:00 Assessment/Plan 61 year old male with a past medical history of DM, HTN, ESRD on dialysis (TThS) , left BKA, diabetic neuropathy, hx of MRSA bacteremia, presenting for a sepsis from likely osteomyelitis of R foot. sepsis osteo r foot ,rsa bacteremia esrd htn dm gas gangrene plan repeat blood cx negative continue vanco for a total of 2 weeks following levels can give it during dialysis rest continue current mgmt await for finalization of the cx
--- NOTE | 2019-04-11 12:28 | PN ---
Progress Note (short form) - Note Progress Note: SUBJECTIVE: Complains of pain RLE s/p guillotine amputation 04/10/19. No fever/ chills. OBJECTIVE: Afebrile, Hemodynamically Stable Last Vital Signs Temp Pulse Resp BP Pulse Ox 97.5 F L 74 18 110/70 98 04/11/19 10:00 04/11/19 11:00 04/11/19 11:00 04/11/19 11:00 04/11/19 09:00 Heart - S1, S2, RRR Chest - clear to auscultation Abdomen - Soft, non-tender. Bowel Sounds normal Extremities - LLE BKA, RLE surgical site dressed. Neuro - AAO x 3. Moving all extremities. R and L BKA. Laboratory Results - last 24 hr 04/07/19 04/10/19 04/10/19 21:00 07:20 17:46 WBC RBC Hgb Hct MCV MCH MCHC RDW Plt Count MPV Neutrophils % (Manual) 94.0 H Band Neutrophils % 0.0 Lymphocytes % (Manual) 4.0 L D Monocytes % (Manual) 2 L Eosinophils % (Manual) 0.0 D Basophils % (Manual) 0.0 Myelocytes % (Man) 0 Promyelocytes % (Man) 0 Blast Cells % (Manual) 0 Metamyelocytes 0 Hypochromia 1+ Platelet Estimate Normal Polychromasia 1+ Poikilocytosis 0 Anisocytosis 1+ Microcytosis 0 Macrocytosis 0 Target Cells 1+ PT with INR INR PTT (Actin FS) Sodium Potassium Chloride Carbon Dioxide Anion Gap BUN Creatinine Est GFR (CKD-EPI)AfAm Est GFR (CKD-EPI)NonAf POC Glucometer 186 Random Glucose Calcium Phosphorus Magnesium Blood Type B POSITIVE Antibody Screen Negative Crossmatch See Detail Crossmatch IS Only See Detail 04/10/19 04/10/19 04/10/19 21:25 22:00 22:29 WBC 22.4 H RBC 2.63 L Hgb 7.1 L Hct 23.1 L MCV 87.8 MCH 27.1 MCHC 30.9 L RDW 16.6 H Plt Count 236 MPV 8.4 Neutrophils % (Manual) Band Neutrophils % Lymphocytes % (Manual) Monocytes % (Manual) Eosinophils % (Manual) Basophils % (Manual) Myelocytes % (Man) Promyelocytes % (Man) Blast Cells % (Manual) Metamyelocytes Hypochromia Platelet Estimate Polychromasia Poikilocytosis Anisocytosis Microcytosis Macrocytosis Target Cells PT with INR INR PTT (Actin FS) Sodium Potassium Chloride Carbon Dioxide Anion Gap BUN Creatinine Est GFR (CKD-EPI)AfAm Est GFR (CKD-EPI)NonAf POC Glucometer 170 Random Glucose Calcium Phosphorus Magnesium Blood Type B POSITIVE Antibody Screen Negative Crossmatch See Detail Crossmatch IS Only 04/11/19 04/11/19 04/11/19 06:00 06:00 06:00 WBC 20.1 H RBC 3.17 L Hgb 8.8 L Hct 27.5 L D MCV 86.8 MCH 27.8 MCHC 32.1 RDW 16.7 H Plt Count 266 MPV 8.8 Neutrophils % (Manual) Band Neutrophils % Lymphocytes % (Manual) Monocytes % (Manual) Eosinophils % (Manual) Basophils % (Manual) Myelocytes % (Man) Promyelocytes % (Man) Blast Cells % (Manual) Metamyelocytes Hypochromia Platelet Estimate Polychromasia Poikilocytosis Anisocytosis Microcytosis Macrocytosis Target Cells PT with INR 15.00 H INR 1.27 H PTT (Actin FS) 35.0 Sodium 142 Potassium 4.4 Chloride 107 Carbon Dioxide 28 Anion Gap 7 L BUN 40.0 H Creatinine 4.7 H Est GFR (CKD-EPI)AfAm 14.23 Est GFR (CKD-EPI)NonAf 12.28 POC Glucometer Random Glucose 166 H Calcium 6.9 L* Phosphorus 5.5 H Magnesium 2.1 Blood Type Antibody Screen Crossmatch Crossmatch IS Only 04/11/19 11:50 WBC RBC Hgb Hct MCV MCH MCHC RDW Plt Count MPV Neutrophils % (Manual) Band Neutrophils % Lymphocytes % (Manual) Monocytes % (Manual) Eosinophils % (Manual) Basophils % (Manual) Myelocytes % (Man) Promyelocytes % (Man) Blast Cells % (Manual) Metamyelocytes Hypochromia Platelet Estimate Polychromasia Poikilocytosis Anisocytosis Microcytosis Macrocytosis Target Cells PT with INR INR PTT (Actin FS) Sodium Potassium Chloride Carbon Dioxide Anion Gap BUN Creatinine Est GFR (CKD-EPI)AfAm Est GFR (CKD-EPI)NonAf POC Glucometer 165 Random Glucose Calcium Phosphorus Magnesium Blood Type Antibody Screen Crossmatch Crossmatch IS Only Current Medications Generic Name Dose Route Start Last Admin Trade Name Freq PRN Reason Stop Dose Admin Acetaminophen 1,000 mg 04/10/19 20:40 04/11/19 06:48 Ofirmev Injection - IVPB 1,000 mg Q6H PRN Administration PAIN LEVEL 1-5 Albuterol Sulfate 1 amp 04/10/19 14:55 Ventolin 0.083% Nebulizer Soln - NEB Q4H PRN SHORT OF BREATH/WHEEZING Chlorhexidine Gluconate 1 applic 04/10/19 22:00 04/10/19 21:45 Hibiclens For Decolonization - TP 1 applic HS IGGY Administration Doxazosin Mesylate 4 mg 04/11/19 10:00 04/11/19 11:56 Cardura - PO 4 mg DAILY IGGY Administration Fluticasone Propionate 1 spray 04/11/19 10:00 04/11/19 11:55 Flonase - NS 1 spray DAILY IGGY Administration Gabapentin 100 mg 04/10/19 22:00 04/11/19 11:54 Neurontin - PO 100 mg BID IGGY Administration Hydromorphone HCl 2 mg 04/11/19 10:58 Dilaudid Vial - IVPUSH Q6H PRN PAIN LEVEL 6-10 Sodium Chloride 1,000 mls @ 42 mls/hr 04/10/19 14:55 04/10/19 15:00 Normal Saline - IV 42 mls/hr ASDIR IGGY Administration Piperacillin Sod/Tazobactam 50 mls @ 100 mls/hr 04/10/19 18:00 04/11/19 11:51 Sod 2.25 gm/ Dextrose IVPB 100 mls/hr Q8H-IV IGGY Administration Protocol Sodium Chloride 250 mls @ 3,000 mls/hr 04/11/19 06:21 Normal Saline - IV 04/12/19 06:21 PRN PRN Hypotension during Dialysis Insulin Aspart 1 vial 04/10/19 22:00 04/10/19 22:38 Novolog Vial Sliding Scale - SQ Not Given HS IGGY Protocol Insulin Aspart 1 vial 04/10/19 16:30 04/11/19 11:56 Novolog Vial Sliding Scale - SQ 2 units TIDAC IGGY Administration Protocol Lidocaine 1 patch 04/11/19 10:00 04/11/19 11:55 Lidoderm Patch - TP 1 patch DAILY IGGY Administration Methadone HCl 2.5 mg 04/10/19 22:00 04/11/19 06:47 Dolophine - PO 2.5 mg TID IGGY Administration Miscellaneous 1 each 04/10/19 22:00 04/10/19 21:55 Lidoderm Patch Removal MC Not Given DAILY@2200 [facility] Mupirocin 1 applic 04/10/19 22:00 04/11/19 11:56 Bactroban Ointment (For Decolonization) - NS 04/15/19 21:59 1 applic BID IGGY Administration Nifedipine 90 mg 04/11/19 10:00 04/11/19 11:53 Procardia Xl - PO 90 mg DAILY IGGY Administration Petrolatum 1 applic 04/10/19 14:55 Vaseline TP DAILY PRN DRY SKIN Trazodone HCl 400 mg/ 450 mg 04/10/19 22:00 04/10/19 21:40 Trazodone HCl 50 mg PO 450 mg HS IGGY Administration Vancomycin HCl 125 mg 04/10/19 18:00 04/11/19 12:03 Vancomycin Oral Solution PO 125 mg Q6HPO IGGY Administration Home Medications Medication Instructions Recorded Albuterol 0.083% Nebulizer Coretta 1 amp NEB Q4H PRN #120 amp 08/23/17 [Ventolin 0.083% Nebulizer Soln -] Fluticasone Prop 0.05% Nasal 1 - 2 spray NS DAILY #1 spray.pump 08/23/17 [Flonase -] Doxazosin Mesylate [Cardura -] 4 mg PO DAILY tablet 10/06/17 Gabapentin [Neurontin -] 100 mg PO BID capsule 10/06/17 Insulin Sliding Scale [Novolog 1 vial SQ ACHS units 10/06/17 Vial Sliding Scale -] Lidocaine 5% Patch [Lidoderm -] 1 patch TP DAILY patch 10/06/17 Lidocaine Patch Removal [Lidoderm 1 each MC DAILY@2200 each 10/06/17 Patch Removal] Insulin (Levemir) [Levemir Vial] 12 unit SQ DAILY@0700 04/07/19 Nifedipine ER [Procardia XL -] 90 mg PO DAILY 04/07/19 traZODone HCL [Desyrel -] 450 mg PO HS 04/07/19 Microbiology 04/06/19 17:45 Foot - Right Gram Stain - Final 04/06/19 17:45 Foot - Right Wound Culture - Final Proteus Vulgaris Mr S Aureus Enterococcus Faecalis 04/09/19 12:15 Foot - Rt Transmetatarsal Amp. Site Gram Stain - Final 04/09/19 12:15 Foot - Rt Transmetatarsal Amp. Site Wound Culture - Preliminary Group D Strep Or Entero Coccus 04/09/19 10:20 Blood - Peripheral Venous Blood Culture - Preliminary NO GROWTH OBTAINED AFTER 48 HOURS, INCUBATION TO CONTINUE FOR 3 DAYS. 04/09/19 10:42 Blood - Peripheral Venous Blood Culture - Preliminary NO GROWTH OBTAINED AFTER 48 HOURS, INCUBATION TO CONTINUE FOR 3 DAYS. 04/07/19 18:00 Bone Gram Stain - Final 04/07/19 18:00 Bone Tissue Culture - Preliminary Morganella Morganii Proteus Vulgaris Enterococcus Faecalis Mr S Aureus Alpha Hemolytic Streptococcus 04/07/19 18:00 Bone Anaerobic Culture - Preliminary Pending Organism 04/07/19 17:30 Foot - Rt Transmetatarsal Amp. Site Gram Stain - Final 04/07/19 17:30 Foot - Rt Transmetatarsal Amp. Site Wound Culture - Preliminary Morganella Morganii Enterococcus Faecalis Mr S Aureus Proteus Vulgaris Pending Organism 04/08/19 16:10 Stool Clostridioides difficile Antigen - Final 04/08/19 16:10 Stool Clostridioides difficile Toxin Assay - Final 04/06/19 17:15 Blood - Peripheral Venous Blood Culture - Final Presumptive Mrsa (Pbp2a Pos) Streptococcus Mitis 04/06/19 17:45 Blood - Peripheral Venous Blood Culture - Final S Aureus ASSESSMENT/PLAN: 63 year old male with PMhx of ESRD on HD (TTS), IDDM, HTN, PVD s/p L BKA, Diabetic neuropathy, prior h/o MRSA bacteremia 09/2017 suspected from HD catheter , Right IJ thrombus in 09/2017 (suspected catheter related) admitted with progressive non-healing right foot swelling, redness, foul smelling discharge, chills. Right foot xray: soft tissue swelling with soft tissue emphysematous changes, deformities consistent with osteomyelitis noted 1. Sepsis secondary to R Foot Osteomyelitis/Cellulitis/Necrotizing fasciitis with Bacteremia POD 1 s/p guillotine amputation - BKA. reporting pain. Will give 1x Morphine IV and will defer to surgical team/Pain management for further post-op opiate Rx. POD 4 s/p transmetatarsal amputation. which was unsuccessful in curbing the infection, necessitating BKA. MRSA/Strep mitis Bacteremia - source ?foot versus AVF Wound/Surgical/Bone Cx - polymicrobial as above. Blood Cx - Strep mitis/MRSA, repeat BCx negative Fever resolving but significant leukocytosis, also resolving WBC 28.1 ---> 20.1 TTE no evidence of vegetations - no indication for CHAKA as per Cardiology. Will defer to ID/Cardio re: optimal Ix for exclude endocarditis. Continue IV Zosyn/Vancomycin - further Abx titration by ID. 2. ESRD on HD TTS via UE AVF No signs of infection at fistula site On IV Zosyn/Vancomycin Repeat Blood Cx negative ID following. 3. DM 2 - uncontrolled, A1C 10.8. Hyperglycemia sec to infection/poor compliance Maintain on Novolog sliding scale. Levemir held. 4. HTN - Continue Nifedipine, Doxazosin 5. ESRD on HD TTS - Nephrology following. 6. Normocytic Anemia likely sec to ESRD - Procrit as per Nephrology. H/H 8.8/ 27.5 s/p fracisco-op transfusion of 2 units PRBCs 7. Chronic Pain Syndrome - Methadone dose confirmed and started. Pain Management consulted for further pain control post-op. 8. Cdiff Ag positive/Toxin negative - started on Vanomycin PO. ID following. DVT Px - Heparin SQ Visit type - Emergency Visit Emergency Visit: Yes ED Registration Date: 04/06/19 Care time: The patient presented to the Emergency Department on the above date and was hospitalized for further evaluation of their emergent condition. - New Patient This patient is new to me today: No - Critical Care Critical Care patient: Yes Total Critical Care Time (in minutes): 35 Critical Care Statement: The care of this patient involved high complexity decision making to prevent further life threatening deterioration of the patient 's condition and/or to evaluate & treat vital organ system(s) failure or risk of failure. - Discharge Referral Referred to [facility] Med P.C.: No
--- NOTE | 2019-04-11 12:43 | PN ---
Progress Note (short form) - Note Progress Note: Transferred to ICU S/P surgery Poor apetite, didn't eat much of lunch Vital Signs Period Temp Pulse Resp BP Sys/Gutierrez Pulse Ox Last 24 Hr 97.5 F-98.4 F 68-98 13-24 80-122/47-74 83-98 PE: AOx3 Neck: Supple, NO JVD HEENT: EOM Lungs: CTA CVS; S1s2 Abd: Benign Ext: Left BKA, Rt leg surgery site dressing Neuro: No focal deficit CMP Sodium 142 mmol/L (136-145) 04/11/19 06:00 Potassium 4.4 mmol/L (3.5-5.1) 04/11/19 06:00 Chloride 107 mmol/L (98-107) 04/11/19 06:00 Carbon Dioxide 28 mmol/L (21-32) 04/11/19 06:00 Anion Gap 7 MMOL/L (8-16) L 04/11/19 06:00 BUN 40.0 mg/dL (7-18) H 04/11/19 06:00 Creatinine 4.7 mg/dL (0.55-1.3) H 04/11/19 06:00 Est GFR (CKD-EPI)AfAm 14.23 04/11/19 06:00 Est GFR (CKD-EPI)NonAf 12.28 04/11/19 06:00 POC Glucometer 165 UNITS (80-120) 04/11/19 11:50 Random Glucose 166 mg/dL (74-106) H 04/11/19 06:00 Hemoglobin A1c % 10.8 % (4.2-6.3) H 04/07/19 11:15 Lactic Acid 0.9 mmol/L (0.4-2.0) 04/06/19 23:00 Calcium 6.9 mg/dL (8.5-10.1) L* 04/11/19 06:00 Phosphorus 5.5 mg/dL (2.5-4.9) H 04/11/19 06:00 Magnesium 2.1 mg/dL (1.8-2.4) 04/11/19 06:00 Iron 21 ug/dL (50-175) L 04/09/19 09:30 TIBC 70 ug/dL (250-450) L 04/09/19 09:30 Iron Saturation 30 % (17.5-39) 04/09/19 09:30 Unsaturated IBC 49 ug/dL (200-275) L 04/09/19 09:30 Ferritin 1970.5 ng/ml (8-388) H 04/09/19 09:30 Total Bilirubin 0.6 mg/dL (0.2-1) 04/06/19 17:45 AST 11 U/L (15-37) L 04/06/19 17:45 ALT 10 U/L (13-61) L 04/06/19 17:45 Alkaline Phosphatase 130 U/L (45-117) H 04/06/19 17:45 Creatine Kinase 26 U/L (26-308) 04/06/19 23:00 Troponin I < 0.02 ng/ml (0.00-0.05) 04/06/19 23:00 C-Reactive Protein 22.3 MG/DL (0.00-0.3) H 04/07/19 11:15 Total Protein 6.0 g/dl (6.4-8.2) L 04/06/19 17:45 Albumin 2.0 g/dl (3.4-5.0) L 04/06/19 17:45 Vitamin B12 1212 pg/ml (193-986) H 04/09/19 09:30 Serum Folate 13 ng/mL (3.1-17.5) 04/09/19 09:30 Current Medications Generic Name Dose Route Start Last Admin Trade Name Freq PRN Reason Stop Dose Admin Acetaminophen 1,000 mg 04/10/19 20:40 04/11/19 06:48 Ofirmev Injection - IVPB 1,000 mg Q6H PRN Administration PAIN LEVEL 1-5 Albuterol Sulfate 1 amp 04/10/19 14:55 Ventolin 0.083% Nebulizer Soln - NEB Q4H PRN SHORT OF BREATH/WHEEZING Chlorhexidine Gluconate 1 applic 04/10/19 22:00 04/10/19 21:45 Hibiclens For Decolonization - TP 1 applic HS IGGY Administration Doxazosin Mesylate 4 mg 04/11/19 10:00 04/11/19 11:56 Cardura - PO 4 mg DAILY IGGY Administration Fluticasone Propionate 1 spray 04/11/19 10:00 04/11/19 11:55 Flonase - NS 1 spray DAILY IGGY Administration Gabapentin 100 mg 04/10/19 22:00 04/11/19 11:54 Neurontin - PO 100 mg BID IGGY Administration Hydromorphone HCl 2 mg 04/11/19 10:58 Dilaudid Vial - IVPUSH Q6H PRN PAIN LEVEL 6-10 Sodium Chloride 1,000 mls @ 42 mls/hr 04/10/19 14:55 04/10/19 15:00 Normal Saline - IV 42 mls/hr ASDIR IGGY Administration Piperacillin Sod/Tazobactam 50 mls @ 100 mls/hr 04/10/19 18:00 04/11/19 11:51 Sod 2.25 gm/ Dextrose IVPB 100 mls/hr Q8H-IV IGGY Administration Protocol Sodium Chloride 250 mls @ 3,000 mls/hr 04/11/19 06:21 Normal Saline - IV 04/12/19 06:21 PRN PRN Hypotension during Dialysis Insulin Aspart 1 vial 04/10/19 22:00 04/10/19 22:38 Novolog Vial Sliding Scale - SQ Not Given HS IGGY Protocol Insulin Aspart 1 vial 04/10/19 16:30 04/11/19 11:56 Novolog Vial Sliding Scale - SQ 2 units TIDAC IGGY Administration Protocol Lidocaine 1 patch 04/11/19 10:00 04/11/19 11:55 Lidoderm Patch - TP 1 patch DAILY IGGY Administration Methadone HCl 2.5 mg 04/10/19 22:00 04/11/19 06:47 Dolophine - PO 2.5 mg TID IGGY Administration Miscellaneous 1 each 04/10/19 22:00 04/10/19 21:55 Lidoderm Patch Removal MC Not Given DAILY@2200 IGGY Mupirocin 1 applic 04/10/19 22:00 04/11/19 11:56 Bactroban Ointment (For Decolonization) - NS 04/15/19 21:59 1 applic BID IGGY Administration Nifedipine 90 mg 04/11/19 10:00 04/11/19 11:53 Procardia Xl - PO 90 mg DAILY IGGY Administration Petrolatum 1 applic 04/10/19 14:55 Vaseline TP DAILY PRN DRY SKIN Trazodone HCl 400 mg/ 450 mg 04/10/19 22:00 12/13/19 21:40 Trazodone HCl 50 mg PO 450 mg HS IGGY Administration Vancomycin HCl 125 mg 04/10/19 18:00 04/11/19 12:03 Vancomycin Oral Solution PO 125 mg Q6HPO IGGY Administration AP: Right foot Infection/Metatarsal osteomyelitis: S/P surgery S/P Transmetatarsal amputation: Sepsis ESRD on HD DM Uncontrolled: A1c 10.3/Episode of hypoglycemia asymptomatic HTN PVD S/P Left BKA H/O MRSA bacteremia 09/2017 suspected from HD catheter H.O Right IJ thrombus in 09/2017 (suspected catheter related) BGM QACHS and 3 PM Monitor blood sugar closely as pts with CKD tend to be very sensitive to Insulin and develop hypoglycemia frequently Continue to hold Levemir for now, Pt has poor apetite Novolog SS coverage Will F/u
--- NOTE | 2019-04-11 13:22 | CONSULT ---
Consult Consult Specialty:: PULM/CCM Referred by:: Dr. Tono Ortiz Reason for Consultation:: Sepsis - History of Present Illness Chief Complaint: R LE Pain History of Present Illness: Mr. Judge is a 63 y/o man w/ HTN, DM, ESRD on HD, PVD s/p L BKA, admitted on 04/06 w/ a foul-smelling R foot wound. W/u revealed R foot nec Fasc w/ osteo. Pt is now POD#1 s/p R TMA. Pt admitted to the ICU O/N w/ c/f Post-Op Sepsis. 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 Cardio/Vascular: Yes: HTN Gastrointestinal: Yes: GERD Renal/: Yes: Renal Failure, Renal Inusuff, Hemodialysis Infectious Disease: Yes: Other (osteomyelitis) Psych: Yes: Depression Musculoskeletal: Yes: Other (chronic pain) Rheumatology: Yes: Other (history of osteomyelitis) Endocrine: Yes: Diabetes Mellitus - Past Surgical History Past Surgical History: Yes: Amputation (L UE AV fistula, L BKA, now s/p R TMA) - Alcohol/Substance Use Hx Alcohol Use: No Number of Drinks Daily: 2 (weekends) History of Substance Use: reports: None - Smoking History Smoking history: Former smoker Have you smoked in the past 12 months: Yes Aproximately how many cigarettes per day: 1 If you are a former smoker, when did you quit?: FEB 2019 - Social History Usual Living Arrangement: Alone ADL: Support Services History of Recent Travel: No Home Medications - Allergies Allergies/Adverse Reactions: Allergies Allergy/AdvReac Type Severity Reaction Status Date / Time shellfish derived Allergy Severe "HIVES" Verified 03/18/17 14:03 No Known Drug Allergies Allergy Verified 03/18/17 14:03 - Home Medications Home Medications: Ambulatory Orders Albuterol 0.083% Nebulizer Coretta [Ventolin 0.083% Nebulizer Soln -] 1 amp NEB Q4H PRN #120 amp 08/23/17 Fluticasone Prop 0.05% Nasal [Flonase -] 1 - 2 spray NS DAILY #1 spray.pump Doxazosin Mesylate [Cardura -] 4 mg PO DAILY tablet 10/06/17 Gabapentin [Neurontin -] 100 mg PO BID capsule 10/06/17 Insulin Sliding Scale [Novolog Vial Sliding Scale -] 1 vial SQ ACHS units 10/06 Lidocaine 5% Patch [Lidoderm -] 1 patch TP DAILY patch 10/06/17 Lidocaine Patch Removal [Lidoderm Patch Removal] 1 each MC DAILY@2200 each 02/13 Insulin (Levemir) [Levemir Vial] 12 unit SQ DAILY@0700 04/07/19 Nifedipine ER [Procardia XL -] 90 mg PO DAILY 04/07/19 traZODone HCL [Desyrel -] 450 mg PO HS 04/07/19 Family Medical History Family History: Unremarkable Review of Systems - Review of Systems Constitutional: reports: No Symptoms Eyes: reports: No Symptoms HENT: reports: No Symptoms Neck: reports: No Symptoms Cardiovascular: reports: No Symptoms Respiratory: reports: No Symptoms Gastrointestinal: reports: No Symptoms Genitourinary: reports: No Symptoms Breasts: reports: No Symptoms Reported Musculoskeletal: reports: No Symptoms Integumentary: reports: Wound Neurological: reports: No Symptoms Endocrine: reports: Other (Poor Apetite) Hematology/Lymphatic: reports: No Symptoms Psychiatric: reports: Depression Pain Intensity: 10 Physical Exam Vital Signs: Vital Signs Temperature 97.5 F L 04/11/19 10:00 Pulse Rate 74 04/11/19 11:00 Respiratory Rate 18 04/11/19 11:00 Blood Pressure 110/70 04/11/19 11:00 O2 Sat by Pulse Oximetry (%) 98 04/11/19 09:00 Intake & Output 04/08/19 04/09/19 04/10/19 04/11/19 23:59 23:59 23:59 23:59 Intake Total 1377 1380 1726 615 Output Total 2520 100 1900 Balance 1377 -1140 1626 -1285 Constitutional: Yes: Well Nourished, No Distress, Calm, Cachectic Eyes: Yes: WNL, Conjunctiva Clear, EOM Intact, PERRL HENT: Yes: WNL, Atraumatic, Normocephalic Neck: Yes: WNL, Supple, Trachea Midline Cardiovascular: Yes: WNL, Regular Rate and Rhythm Respiratory: Yes: WNL, Regular, CTA Bilaterally Gastrointestinal: Yes: WNL, Normal Bowel Sounds, Soft, Hypoactive Bowel Sounds ...Rectal Exam: Yes: Deferred Renal/: Yes: Anuria Breast(s): Yes: WNL Musculoskeletal: Yes: WNL Extremities: Yes: Other (L UE AV fistula w/ good bruit & thrill, L BKA, now s/p R TMA) Edema: No Peripheral Pulses WNL: Yes Integumentary: Yes: WNL Wound/Incision: Yes: Clean/Dry, Well Approximated, Sutures Intact, Mary Beth Intact Neurological: Yes: WNL, Alert, Oriented ...Motor Strength: WNL Psychiatric: Yes: WNL, Alert, Oriented Labs: CBC, BMP 04/11/19 06:00 04/11/19 06:00 Microbiology 04/06/19 17:45 Foot - Right Gram Stain - Final 04/06/19 17:45 Foot - Right Wound Culture - Final Proteus Vulgaris Mr S Aureus Enterococcus Faecalis 04/09/19 12:15 Foot - Rt Transmetatarsal Amp. Site Gram Stain - Final 04/09/19 12:15 Foot - Rt Transmetatarsal Amp. Site Wound Culture - Preliminary Group D Strep Or Entero Coccus 04/09/19 10:20 Blood - Peripheral Venous Blood Culture - Preliminary NO GROWTH OBTAINED AFTER 48 HOURS, INCUBATION TO CONTINUE FOR 3 DAYS. 04/09/19 10:42 Blood - Peripheral Venous Blood Culture - Preliminary NO GROWTH OBTAINED AFTER 48 HOURS, INCUBATION TO CONTINUE FOR 3 DAYS. 04/07/19 18:00 Bone Gram Stain - Final 04/07/19 18:00 Bone Tissue Culture - Preliminary Morganella Morganii Proteus Vulgaris Enterococcus Faecalis Mr S Aureus Alpha Hemolytic Streptococcus 04/07/19 18:00 Bone Anaerobic Culture - Preliminary Pending Organism 04/07/19 17:30 Foot - Rt Transmetatarsal Amp. Site Gram Stain - Final 04/07/19 17:30 Foot - Rt Transmetatarsal Amp. Site Wound Culture - Preliminary Morganella Morganii Enterococcus Faecalis Mr S Aureus Proteus Vulgaris Pending Organism 04/08/19 16:10 Stool Clostridioides difficile Antigen - Final 04/08/19 16:10 Stool Clostridioides difficile Toxin Assay - Final 04/06/19 17:15 Blood - Peripheral Venous Blood Culture - Final Presumptive Mrsa (Pbp2a Pos) Streptococcus Mitis 04/06/19 17:45 Blood - Peripheral Venous Blood Culture - Final Mr S Aureus Imaging - Results Chest X-ray: Image Reviewed (04/06: Clear (My Read).) X-ray: Image Reviewed (R LE 04/06: Soft tissue swelling with soft tissues emphysematous. There is deformity, lucencies, destructive changes involving the distal aspect of the right third metatarsal, metatarsal head, base of the right third proximal phalanx consistent with osteomyelitis. R LE Pos-Op 04/09: Subcutaneous emphysema likely due to postoperative changes. R Tib/Fib 04/09: No radiographic evidence of osteomyelitis.) Ultrasound: Report Reviewed (04/08: TTE no evidence of vegetations - no indication for CHAKA at this time.) Problem List - Problems (1) Cellulitis of right foot Code(s): L03.115 - CELLULITIS OF RIGHT LOWER LIMB (2) ESRD (end stage renal disease) on dialysis Code(s): N18.6 - END STAGE RENAL DISEASE; Z99.2 - DEPENDENCE ON RENAL DIALYSIS (3) Gas gangrene of foot Code(s): A48.0 - GAS GANGRENE (4) Hyperglycemia Code(s): R73.9 - HYPERGLYCEMIA, UNSPECIFIED (5) Uncontrolled diabetes mellitus Code(s): E11.65 - TYPE 2 DIABETES MELLITUS WITH HYPERGLYCEMIA Qualifiers: Diabetes mellitus type: type 2 Glycemic state: with hyperglycemia Qualified Code(s): E11.65 - Type 2 diabetes mellitus with hyperglycemia (6) Foot infection Code(s): L08.9 - LOCAL INFECTION OF THE SKIN AND SUBCUTANEOUS TISSUE, UNSP (7) FROYLAN (acute kidney injury) Code(s): N17.9 - ACUTE KIDNEY FAILURE, UNSPECIFIED (8) ESRD (end stage renal disease) Code(s): N18.6 - END STAGE RENAL DISEASE (9) HTN (hypertension) Code(s): I10 - ESSENTIAL (PRIMARY) HYPERTENSION Qualifiers: Hypertension type: essential hypertension Qualified Code(s): I10 - Essential (primary) hypertension Assessment/Plan ASSESS: -S/P Transmetatarsal amputation for Right foot Infection/Metatarsal osteomyelitis -Bacteremia -HTN -DM Uncontrolled: A1c 10.3 -ESRD on HD -PVD PLAN: -Supp FiO2 prn -Nebs -IS -Pain Control -Wound Management a/p surgery -Abx a/p ID -FSs -Insulin prn -HD a/p RENAL -Renal Diet -DVT ppx -PT/OT -Transfer to Med Surg GUTIERREZ [facility]NP-[facility] ICU PULM/CCM [id number] Medical Decision Making - Critical Care Time Total Critical Care Time (minutes): 38 Critical Care Statement: The care of this patient involved high complexity decision making to prevent further life threatening deterioration of the patient 's condition and/or to evaluate & treat vital organ system(s) failure or risk of failure.
[2019-04-11] MEDS: SODIUM CHLORIDE 1,000 ML IV SCH (15:20)
--- NOTE | 2019-04-11 16:12 | OP ---
Operative Note - Note: Operative Date: 04/10/19 Pre-Operative Diagnosis: right leg gas gangrene Operation: Right guillotene amputation Post-Operative Diagnosis: Same as Pre-op Surgeon: Al Daly Anesthesia: General Estimated Blood Loss (mls): 100 Operative Report Dictated: Yes
--- NOTE | 2019-04-11 16:16 | PN ---
Progress Note (short form) - Note Progress Note: VAsc[facility] Surgery Pt seen and examined. Doing well. Morphine ordered for pain. Feels a lot better. POD 1 for right guillotene amputation. Will take back this week for formal BKA with closure. WBC coming down to 20. H/H stable. Al Daly DO
--- NOTE | 2019-04-11 16:54 | PN ---
Progress Note, Physician Chief Complaint: Pt A&Ox3; no chest pain, LE pain; no dyspnea or palpitations. History of Present Illness: 63-year-old black male with PMHx right LE BKA, DM, HTN, anemia, presents with a foul-smelling purulent open wound on his right foot. 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 - Current Medication List Current Medications: Active Medications Acetaminophen (Ofirmev Injection -) 1,000 mg IVPB Q6H PRN PRN Reason: PAIN LEVEL 1-5 Last Admin: 04/11/19 06:48 Dose: 1,000 mg Albuterol Sulfate (Ventolin 0.083% Nebulizer Soln -) 1 amp NEB Q4H PRN PRN Reason: SHORT OF BREATH/WHEEZING Chlorhexidine Gluconate (Hibiclens For Decolonization -) 1 applic TP HS [facility] Last Admin: 04/10/19 21:45 Dose: 1 applic Doxazosin Mesylate (Cardura -) 4 mg PO DAILY [facility] Last Admin: 04/11/19 11:56 Dose: 4 mg Fluticasone Propionate (Flonase -) 1 spray NS DAILY [facility] Last Admin: 04/11/19 11:55 Dose: 1 spray Gabapentin (Neurontin -) 100 mg PO BID [facility] Last Admin: 04/11/19 11:54 Dose: 100 mg Hydromorphone HCl (Dilaudid Vial -) 2 mg IVPUSH Q6H PRN PRN Reason: PAIN LEVEL 6-10 Sodium Chloride (Normal Saline -) 1,000 mls @ 42 mls/hr IV ASDIR [facility] Last Admin: 04/11/19 15:20 Dose: 42 mls/hr Piperacillin Sod/Tazobactam (Sod 2.25 gm/ Dextrose) 50 mls @ 100 mls/hr IVPB Q8H-IV [facility]; Protocol Last Admin: 04/11/19 11:51 Dose: 100 mls/hr Sodium Chloride (Normal Saline -) 250 mls @ 3,000 mls/hr IV PRN PRN PRN Reason: Hypotension during Dialysis Stop: 04/12/19 06:21 Insulin Aspart (Novolog Vial Sliding Scale -) 1 vial SQ [facility]; Protocol Last Admin: 04/10/19 22:38 Dose: Not Given Insulin Aspart (Novolog Vial Sliding Scale -) 1 vial SQ TIDAC [facility]; Protocol Last Admin: 04/11/19 16:51 Dose: 3 units Lidocaine (Lidoderm Patch -) 1 patch TP DAILY [facility] Last Admin: 04/11/19 11:55 Dose: 1 patch Methadone HCl (Dolophine -) 2.5 mg PO TID [facility] Last Admin: 04/11/19 15:20 Dose: 2.5 mg Miscellaneous (Lidoderm Patch Removal) 1 each MC DAILY@2200 [facility] Last Admin: 04/10/19 21:55 Dose: Not Given Morphine Sulfate (Morphine Injection -) 4 mg IVPUSH Q4H PRN PRN Reason: PAIN LEVEL 6-10 Mupirocin (Bactroban Ointment (For Decolonization) -) 1 applic NS BID [facility] Stop: 04/15/19 21:59 Last Admin: 04/11/19 11:56 Dose: 1 applic Nifedipine (Procardia Xl -) 90 mg PO DAILY [facility] Last Admin: 04/11/19 11:53 Dose: 90 mg Petrolatum (Vaseline) 1 applic TP DAILY PRN PRN Reason: DRY SKIN Trazodone HCl 400 mg/ (Trazodone HCl 50 mg) 450 mg PO HS [facility] Last Admin: 04/10/19 21:40 Dose: 450 mg Vancomycin HCl (Vancomycin Oral Solution) 125 mg PO Q6HPO [facility] Last Admin: 04/11/19 12:03 Dose: 125 mg - Objective Vital Signs: Vital Signs Temperature 97.5 F L 04/11/19 13:53 Pulse Rate 79 04/11/19 14:00 Respiratory Rate 20 04/11/19 12:00 Blood Pressure 130/78 04/11/19 14:00 O2 Sat by Pulse Oximetry (%) 98 04/11/19 09:00 Constitutional: Yes: Calm, Thin Eyes: Yes: WNL HENT: Yes: WNL Neck: Yes: WNL Respiratory: Yes: Regular Gastrointestinal: Yes: Soft ...Rectal Exam: Yes: Deferred Genitourinary: No: Anuria Musculoskeletal: Yes: Muscle Weakness, Other Extremities: Yes: Cool Edema: No Peripheral Pulses WNL: No Peripheral Pulses: Left Femoral: 2+, Right Femoral: 2+ Wound/Incision: Yes: Dressing Dry and Intact Neurological: Yes: Alert, Oriented, Weakness Psychiatric: Yes: Alert, Oriented, Other (hx depression, PTSD) Labs: CBC, BMP 04/11/19 06:00 04/11/19 06:00 INR, PTT INR 1.27 (0.83-1.09) H 04/11/19 06:00 Abnormal Lab Results 04/10/19 04/10/19 04/11/19 21:25 22:00 06:00 WBC 22.4 H 20.1 H RBC 2.63 L 3.17 L Hgb 7.1 L 8.8 L Hct 23.1 L 27.5 L D MCHC 30.9 L RDW 16.6 H 16.7 H PT with INR INR Anion Gap BUN Creatinine Random Glucose Calcium Phosphorus Crossmatch See Detail 04/11/19 04/11/19 06:00 06:00 WBC RBC Hgb Hct MCHC RDW PT with INR 15.00 H INR 1.27 H Anion Gap 7 L BUN 40.0 H Creatinine 4.7 H Random Glucose 166 H Calcium 6.9 L* Phosphorus 5.5 H Crossmatch - ....Imaging Chest X-ray: Image Reviewed EKG: Image Reviewed Problem List - Problems (1) Status post amputation of right foot Assessment/Plan: s/p amputation POD #1. Denies pain. F/u with surgeon. Code(s): Z89.431 - ACQUIRED ABSENCE OF RIGHT FOOT (2) Diabetes Code(s): E11.9 - TYPE 2 DIABETES MELLITUS WITHOUT COMPLICATIONS (3) HTN (hypertension) Assessment/Plan: On nifedipine and doxyzocin (unless pt needs the latter for .e.g. prostate disease, recommend using another agent for HTN; alpha blockers may lead to increased CHF). Code(s): I10 - ESSENTIAL (PRIMARY) HYPERTENSION (4) Pericardial effusion Assessment/Plan: Normal LVEF; mild LVH; abnormal diastolic compliance; small pericardial effusion on ECHO this admission. Code(s): I31.3 - PERICARDIAL EFFUSION (NONINFLAMMATORY) (5) Diastolic CHF Code(s): I50.30 - UNSPECIFIED DIASTOLIC (CONGESTIVE) HEART FAILURE (6) Renal dysfunction Code(s): N28.9 - DISORDER OF KIDNEY AND URETER, UNSPECIFIED (7) [place] cardiac risk >20% in next 10 years Assessment/Plan: stress MIBI once stable post-op (may be done as outpatient), if not done recently. Code(s): Z91.89 - OT PERSONAL RISK FACTORS, NOT ELSEWHERE CLASSIFIED Assessment/Plan CCU time spent: 40 minutes
--- NOTE | 2019-04-11 17:08 | PN ---
Progress Note, Physician Chief Complaint: s/p right lower extremity guillotine amputation under general anesthesia History of Present Illness: post op day one - Current Medication List Current Medications: Active Medications Acetaminophen (Ofirmev Injection -) 1,000 mg IVPB Q6H PRN PRN Reason: PAIN LEVEL 1-5 Last Admin: 04/11/19 06:48 Dose: 1,000 mg Albuterol Sulfate (Ventolin 0.083% Nebulizer Soln -) 1 amp NEB Q4H PRN PRN Reason: SHORT OF BREATH/WHEEZING Chlorhexidine Gluconate (Hibiclens For Decolonization -) 1 applic TP HS [facility] Last Admin: 04/10/19 21:45 Dose: 1 applic Doxazosin Mesylate (Cardura -) 4 mg PO DAILY [facility] Last Admin: 04/11/19 11:56 Dose: 4 mg Fluticasone Propionate (Flonase -) 1 spray NS DAILY [facility] Last Admin: 04/11/19 11:55 Dose: 1 spray Gabapentin (Neurontin -) 100 mg PO BID [facility] Last Admin: 04/11/19 11:54 Dose: 100 mg Hydromorphone HCl (Dilaudid Vial -) 2 mg IVPUSH Q6H PRN PRN Reason: PAIN LEVEL 6-10 Sodium Chloride (Normal Saline -) 1,000 mls @ 42 mls/hr IV [facility]IR [facility] Last Admin: 04/11/19 15:20 Dose: 42 mls/hr Piperacillin Sod/Tazobactam (Sod 2.25 gm/ Dextrose) 50 mls @ 100 mls/hr IVPB Q8H-IV [facility]; Protocol Last Admin: 04/11/19 11:51 Dose: 100 mls/hr Sodium Chloride (Normal Saline -) 250 mls @ 3,000 mls/hr IV PRN PRN PRN Reason: Hypotension during Dialysis Stop: 04/12/19 06:21 Insulin Aspart (Novolog Vial Sliding Scale -) 1 vial SQ HS [facility]; Protocol Last Admin: 04/10/19 22:38 Dose: Not Given Insulin Aspart (Novolog Vial Sliding Scale -) 1 vial SQ TIDAC [facility]; Protocol Last Admin: 04/11/19 16:51 Dose: 3 units Lidocaine (Lidoderm Patch -) 1 patch TP DAILY [facility] Last Admin: 04/11/19 11:55 Dose: 1 patch Methadone HCl (Dolophine -) 2.5 mg PO TID [facility] Last Admin: 04/11/19 15:20 Dose: 2.5 mg Miscellaneous (Lidoderm Patch Removal) 1 each MC DAILY@2200 [facility] Last Admin: 04/10/19 21:55 Dose: Not Given Morphine Sulfate (Morphine Injection -) 4 mg IVPUSH Q4H PRN PRN Reason: PAIN LEVEL 6-10 Mupirocin (Bactroban Ointment (For Decolonization) -) 1 applic NS BID [facility] Stop: 04/15/19 21:59 Last Admin: 04/11/19 11:56 Dose: 1 applic Nifedipine (Procardia Xl -) 90 mg PO DAILY [facility] Last Admin: 04/11/19 11:53 Dose: 90 mg Petrolatum (Vaseline) 1 applic TP DAILY PRN PRN Reason: DRY SKIN Trazodone HCl 400 mg/ (Trazodone HCl 50 mg) 450 mg PO HS [facility] Last Admin: 04/10/19 21:40 Dose: 450 mg Vancomycin HCl (Vancomycin Oral Solution) 125 mg PO Q6HPO [facility] Last Admin: 04/11/19 12:03 Dose: 125 mg - Objective Vital Signs: Vital Signs Temperature 97.5 F L 04/11/19 13:53 Pulse Rate 79 04/11/19 14:00 Respiratory Rate 20 04/11/19 12:00 Blood Pressure 130/78 04/11/19 14:00 O2 Sat by Pulse Oximetry (%) 98 04/11/19 09:00 Constitutional: Yes: Well Nourished, Mild Distress Cardiovascular: Yes: WNL Respiratory: Yes: WNL Gastrointestinal: Yes: WNL Labs: CBC, BMP 04/11/19 06:00 04/11/19 06:00 INR, PTT INR 1.27 (0.83-1.09) H 04/11/19 06:00 Assessment/Plan Patient complaining of pain but otherwise no post anesthetic complications. Dept of anesthesia will sign off care at this time.
[2019-04-11] MEDS ORDERED: CALCIUM 500MG/VIT-D 200 UNITS COMBO TABLET (FP) PO ONE (17:44)
--- NOTE | 2019-04-11 17:44 | PN ---
Progress Note, Physician History of Present Illness: Pt seen and examined at bedside. He is awake and appears comfortable. - Current Medication List Current Medications: Active Medications Acetaminophen (Ofirmev Injection -) 1,000 mg IVPB Q6H PRN PRN Reason: PAIN LEVEL 1-5 Last Admin: 04/11/19 06:48 Dose: 1,000 mg Albuterol Sulfate (Ventolin 0.083% Nebulizer Soln -) 1 amp NEB Q4H PRN PRN Reason: SHORT OF BREATH/WHEEZING Chlorhexidine Gluconate (Hibiclens For Decolonization -) 1 applic TP HS [facility] Last Admin: 04/10/19 21:45 Dose: 1 applic Doxazosin Mesylate (Cardura -) 4 mg PO DAILY [facility] Last Admin: 04/11/19 11:56 Dose: 4 mg Fluticasone Propionate (Flonase -) 1 spray NS DAILY [facility] Last Admin: 04/11/19 11:55 Dose: 1 spray Gabapentin (Neurontin -) 100 mg PO BID [facility] Last Admin: 04/11/19 11:54 Dose: 100 mg Hydromorphone HCl (Dilaudid Vial -) 2 mg IVPUSH Q6H PRN PRN Reason: PAIN LEVEL 6-10 Sodium Chloride (Normal Saline -) 1,000 mls @ 42 mls/hr IV [facility]IR [facility] Last Admin: 04/11/19 15:20 Dose: 42 mls/hr Piperacillin Sod/Tazobactam (Sod 2.25 gm/ Dextrose) 50 mls @ 100 mls/hr IVPB Q8H-IV [facility]; Protocol Last Admin: 04/11/19 17:20 Dose: 100 mls/hr Sodium Chloride (Normal Saline -) 250 mls @ 3,000 mls/hr IV PRN PRN PRN Reason: Hypotension during Dialysis Stop: 04/12/19 06:21 Insulin Aspart (Novolog Vial Sliding Scale -) 1 vial SQ HS [facility]; Protocol Last Admin: 04/10/19 22:38 Dose: Not Given Insulin Aspart (Novolog Vial Sliding Scale -) 1 vial SQ TIDAC [facility]; Protocol Last Admin: 04/11/19 16:51 Dose: 3 units Lidocaine (Lidoderm Patch -) 1 patch TP DAILY [facility] Last Admin: 04/11/19 11:55 Dose: 1 patch Methadone HCl (Dolophine -) 2.5 mg PO TID [facility] Last Admin: 04/11/19 15:20 Dose: 2.5 mg Miscellaneous (Lidoderm Patch Removal) 1 each MC DAILY@2200 [facility] Last Admin: 04/10/19 21:55 Dose: Not Given Morphine Sulfate (Morphine Injection -) 4 mg IVPUSH Q4H PRN PRN Reason: PAIN LEVEL 6-10 Mupirocin (Bactroban Ointment (For Decolonization) -) 1 applic NS BID [facility] Stop: 04/15/19 21:59 Last Admin: 04/11/19 11:56 Dose: 1 applic Nifedipine (Procardia Xl -) 90 mg PO DAILY [facility] Last Admin: 04/11/19 11:53 Dose: 90 mg Petrolatum (Vaseline) 1 applic TP DAILY PRN PRN Reason: DRY SKIN Trazodone HCl 400 mg/ (Trazodone HCl 50 mg) 450 mg PO HS [facility] Last Admin: 04/10/19 21:40 Dose: 450 mg Vancomycin HCl (Vancomycin Oral Solution) 125 mg PO Q6HPO [facility] Last Admin: 04/11/19 17:20 Dose: 125 mg - Objective Vital Signs: Vital Signs Temperature 97.5 F L 04/11/19 13:53 Pulse Rate 79 04/11/19 14:00 Respiratory Rate 20 04/11/19 12:00 Blood Pressure 130/78 04/11/19 14:00 O2 Sat by Pulse Oximetry (%) 98 04/11/19 09:00 Constitutional: Yes: Calm Eyes: Yes: Conjunctiva Clear HENT: Yes: Atraumatic Cardiovascular: Yes: S1, S2 Gastrointestinal: Yes: Soft Genitourinary: Yes: WNL Musculoskeletal: Yes: Other (right foot ampuation) Edema: No Neurological: Yes: Oriented Psychiatric: Yes: Oriented Labs: CBC, BMP 04/11/19 06:00 04/11/19 06:00 INR, PTT INR 1.27 (0.83-1.09) H 04/11/19 06:00 Assessment/Plan Current Medications Generic Name Dose Route Start Last Admin Trade Name Freq PRN Reason Stop Dose Admin Acetaminophen 1,000 mg 04/10/19 20:40 04/11/19 06:48 Ofirmev Injection - IVPB 1,000 mg Q6H PRN Administration PAIN LEVEL 1-5 Albuterol Sulfate 1 amp 04/10/19 14:55 Ventolin 0.083% Nebulizer Soln - NEB Q4H PRN SHORT OF BREATH/WHEEZING Chlorhexidine Gluconate 1 applic 04/10/19 22:00 04/10/19 21:45 Hibiclens For Decolonization - TP 1 applic HS [facility] Administration Doxazosin Mesylate 4 mg 04/11/19 10:00 04/11/19 11:56 Cardura - PO 4 mg DAILY [facility] Administration Fluticasone Propionate 1 spray 04/11/19 10:00 04/11/19 11:55 Flonase - NS 1 spray DAILY [facility] Administration Gabapentin 100 mg 04/10/19 22:00 04/11/19 11:54 Neurontin - PO 100 mg BID [facility] Administration Hydromorphone HCl 2 mg 04/11/19 10:58 Dilaudid Vial - IVPUSH Q6H PRN PAIN LEVEL 6-10 Sodium Chloride 1,000 mls @ 42 mls/hr 04/10/19 14:55 04/11/19 15:20 Normal Saline - IV 42 mls/hr ASDIR [facility] Administration Piperacillin Sod/Tazobactam 50 mls @ 100 mls/hr 04/10/19 18:00 04/11/19 17:20 Sod 2.25 gm/ Dextrose IVPB 100 mls/hr Q8H-IV [facility] Administration Protocol Sodium Chloride 250 mls @ 3,000 mls/hr 04/11/19 06:21 Normal Saline - IV 04/12/19 06:21 PRN PRN Hypotension during Dialysis Insulin Aspart 1 vial 04/10/19 22:00 04/10/19 22:38 Novolog Vial Sliding Scale - SQ Not Given HS [facility] Protocol Insulin Aspart 1 vial 04/10/19 16:30 04/11/19 16:51 Novolog Vial Sliding Scale - SQ 3 units TIDAC [facility] Administration Protocol Lidocaine 1 patch 04/11/19 10:00 04/11/19 11:55 Lidoderm Patch - TP 1 patch DAILY [facility] Administration Methadone HCl 2.5 mg 04/10/19 22:00 04/11/19 15:20 Dolophine - PO 2.5 mg TID [facility] Administration Miscellaneous 1 each 04/10/19 22:00 04/10/19 21:55 Lidoderm Patch Removal MC Not Given DAILY@2200 [facility] Morphine Sulfate 4 mg 04/11/19 16:12 Morphine Injection - IVPUSH Q4H PRN PAIN LEVEL 6-10 Mupirocin 1 applic 04/10/19 22:00 04/11/19 11:56 Bactroban Ointment (For Decolonization) - NS 04/15/19 21:59 1 applic BID [facility] Administration Nifedipine 90 mg 04/11/19 10:00 04/11/19 11:53 Procardia Xl - PO 90 mg DAILY [facility] Administration Petrolatum 1 applic 04/10/19 14:55 Vaseline TP DAILY PRN DRY SKIN Trazodone HCl 400 mg/ 450 mg 04/10/19 22:00 04/10/19 21:40 Trazodone HCl 50 mg PO 450 mg HS [facility] Administration Vancomycin HCl 125 mg 04/10/19 18:00 04/11/19 17:20 Vancomycin Oral Solution PO 125 mg Q6HPO [facility] Administration 1. ESRD on HD 2. Infected foot wound 3. Anemia of CKD 4. DM 5. Metabolic acidosis 6. Leukocytosis 7. PVD Plan - HD today - renal diet - start phoslo - give dose of calcium and calitriol - will maintain on TTS HD schedule while inpatient.
[2019-04-11] MEDS ORDERED: morphine SULFATE 4 MG/ML VIAL ONE (18:14)
[2019-04-11] MEDS: CALCITRIOL 0.25 MCG CAPSULE (FP) PO SCH (18:35)
[2019-04-11] MEDS: morphine CARPU-JECT 4 MG/1 ML DISP.SYRIN IVPUSH PRN (18:36)
[2019-04-11] MEDS: CHLORHEXIDINE GLUCONATE 4% CLEANSER FOR DECOLONIZATION TP SCH (21:37)
[2019-04-11] MEDS: LIDOCAINE PATCH REMOVAL MC SCH (21:39)
[2019-04-11] MEDS: TRAZODONE HCL PO SCH (22:15)
[2019-04-11] MEDS: HYDROmorphone HCl 2 MG/ML VIAL IVPUSH PRN (22:27)
[2019-04-12] MEDS ORDERED: PT OWN MED DRAWER 7, Y5N ONE (02:15)
[2019-04-12] MEDS ORDERED: PIPERACILLIN/TAZOBACTAM 2.25 GM VIAL IVPB ONE ×4 (02:17→17:39)
[2019-04-12] MEDS: VANCOMYCIN 250 MG/5 ML ORAL SOLUTION PO SCH ×5 (02:22→23:28)
[2019-04-12] MEDS: PIPERACILLIN/TAZOB 2.25 GM 2.25 GM in DEXTROSE 5%-WATER - 50 ML IVPB SCH ×3 (02:27→17:49)
[2019-04-12] MEDS ORDERED: DEXTROSE 5%-WATER - 50 ML IVPB ONE ×3 (02:27→17:39)
[2019-04-12] MEDS: METHADONE HCL 5 MG TABLET PO SCH (05:31)
[2019-04-12] MEDS: INSULIN SLIDING SCALE (NOVOLOG) 1 VIAL SQ SCH ×4 (06:40→22:28)
[2019-04-12] MEDS: CALCIUM ACETATE 667 MG CAPSULE (FP) PO SCH ×3 (08:30→17:49)
[2019-04-12] MEDS ORDERED: morphine SULFATE 4 MG/ML VIAL ONE ×2 (08:56→15:38)
--- NOTE | 2019-04-12 08:56 | PN ---
Progress Note (short form) - Note Progress Note: Seen and examined in the ICU Awaiting med/surg bed hemodynamically stable afebrile received iHD c/o some pain at surgical site tolerating advanced diet amputated foot/wound w/ polymicrobial infection Current Medications Acetaminophen (Ofirmev Injection -) 1,000 mg IVPB Q6H PRN PRN Reason: PAIN LEVEL 1-5 Last Admin: 04/11/19 06:48 Dose: 1,000 mg Albuterol Sulfate (Ventolin 0.083% Nebulizer Soln -) 1 amp NEB Q4H PRN PRN Reason: SHORT OF BREATH/WHEEZING Calcitriol (Rocaltrol -) 0.25 mcg PO DAILY [facility] Stop: 04/12/19 10:01 Last Admin: 04/11/19 18:35 Dose: 0.25 mcg Calcium Acetate (Phoslo -) 667 mg PO TIDCM [facility] Chlorhexidine Gluconate (Hibiclens For Decolonization -) 1 applic TP HS [facility] Last Admin: 04/11/19 21:37 Dose: 1 applic Doxazosin Mesylate (Cardura -) 4 mg PO DAILY [facility] Last Admin: 04/11/19 11:56 Dose: 4 mg Fluticasone Propionate (Flonase -) 1 spray NS DAILY [facility] Last Admin: 04/11/19 11:55 Dose: 1 spray Gabapentin (Neurontin -) 100 mg PO BID [facility] Last Admin: 04/11/19 21:36 Dose: 100 mg Hydromorphone HCl (Dilaudid Vial -) 2 mg IVPUSH Q6H PRN PRN Reason: PAIN LEVEL 6-10 Last Admin: 04/11/19 22:27 Dose: 2 mg Piperacillin Sod/Tazobactam (Sod 2.25 gm/ Dextrose) 50 mls @ 100 mls/hr IVPB Q8H-IV [facility]; Protocol Last Admin: 04/12/19 02:27 Dose: 100 mls/hr Insulin Aspart (Novolog Vial Sliding Scale -) 1 vial SQ HS [facility]; Protocol Last Admin: 04/11/19 22:24 Dose: 4 units Insulin Aspart (Novolog Vial Sliding Scale -) 1 vial SQ TIDAC [facility]; Protocol Last Admin: 04/12/19 06:40 Dose: 2 units Lidocaine (Lidoderm Patch -) 1 patch TP DAILY [facility] Last Admin: 04/11/19 11:55 Dose: 1 patch Methadone HCl (Dolophine -) 2.5 mg PO TID [facility] Last Admin: 04/12/19 05:31 Dose: 2.5 mg Miscellaneous (Lidoderm Patch Removal) 1 each MC DAILY@2200 [facility] Last Admin: 04/11/19 21:39 Dose: Not Given Morphine Sulfate (Morphine Injection -) 4 mg IVPUSH Q4H PRN PRN Reason: PAIN LEVEL 6-10 Last Admin: 04/11/19 18:36 Dose: 4 mg Mupirocin (Bactroban Ointment (For Decolonization) -) 1 applic NS BID [facility] Stop: 04/15/19 21:59 Last Admin: 04/11/19 21:36 Dose: 1 applic Nifedipine (Procardia Xl -) 90 mg PO DAILY [facility] Last Admin: 04/11/19 11:53 Dose: 90 mg Petrolatum (Vaseline) 1 applic TP DAILY PRN PRN Reason: DRY SKIN Trazodone HCl 400 mg/ (Trazodone HCl 50 mg) 450 mg PO HS [facility] Last Admin: 04/11/19 22:15 Dose: 450 mg Vancomycin HCl (Vancomycin Oral Solution) 125 mg PO Q6HPO [facility] Last Admin: 04/12/19 05:31 Dose: 125 mg Vital Signs Period Temp Pulse Resp BP Sys/Gutierrez Pulse Ox Last 24 Hr 97.5 F-98.6 F 68-88 16-27 95-137/62-78 98-98 Intake & Output 04/09/19 04/10/19 04/11/19 04/12/19 23:59 23:59 23:59 23:59 Intake Total 1380 1726 1919 150 Output Total 2520 100 1900 Balance -1140 1626 19 150 Weight 78.5 kg Exam: General: awake, alert and cooperative HEENT: PERRL CV: RRR Pulm: CTA Abd: SNRND +BS Ext: WWP, right LE surgical c/d/i CBC, BMP 04/11/19 06:00 04/11/19 06:00 Microbiology 04/07/19 18:00 Bone Gram Stain - Final 04/07/19 18:00 Bone Tissue Culture - Final Morganella Morganii Proteus Vulgaris Enterococcus Faecalis Mr S Aureus Alpha Hemolytic Streptococcus 04/07/19 18:00 Bone Anaerobic Culture - Final 04/07/19 17:30 Foot - Rt Transmetatarsal Amp. Site Gram Stain - Final 04/07/19 17:30 Foot - Rt Transmetatarsal Amp. Site Wound Culture - Final Morganella Morganii Enterococcus Faecalis Mr S Aureus Proteus Vulgaris 04/06/19 17:45 Foot - Right Gram Stain - Final 04/06/19 17:45 Foot - Right Wound Culture - Final Proteus Vulgaris Mr S Aureus Enterococcus Faecalis 04/09/19 12:15 Foot - Rt Transmetatarsal Amp. Site Gram Stain - Final 04/09/19 12:15 Foot - Rt Transmetatarsal Amp. Site Wound Culture - Preliminary Group D Strep Or Entero Coccus 04/09/19 10:20 Blood - Peripheral Venous Blood Culture - Preliminary NO GROWTH OBTAINED AFTER 48 HOURS, INCUBATION TO CONTINUE FOR 3 DAYS. 04/09/19 10:42 Blood - Peripheral Venous Blood Culture - Preliminary NO GROWTH OBTAINED AFTER 48 HOURS, INCUBATION TO CONTINUE FOR 3 DAYS. Assessment/Plan ASSESS: -S/P Transmetatarsal amputation for Right foot Infection/Metatarsal osteomyelitis -Bacteremia -HTN -DM Uncontrolled: A1c 10.3 -ESRD on HD -PVD PLAN: -Supp FiO2 prn -Nebs -IS -Pain Control -Wound Management a/p surgery, plan for BKA later this admission -Abx a/p ID -FSs -Insulin prn -HD a/p RENAL -Renal Diet -DVT ppx -PT/OT -Transfer to Med [facility] Pulm/[facility] CCT: [id number]
--- NOTE | 2019-04-12 08:56 | PN ---
Progress Note, Physician History of Present Illness: stable feels better - Current Medication List Current Medications: Active Medications Acetaminophen (Ofirmev Injection -) 1,000 mg IVPB Q6H PRN PRN Reason: PAIN LEVEL 1-5 Last Admin: 04/11/19 06:48 Dose: 1,000 mg Albuterol Sulfate (Ventolin 0.083% Nebulizer Soln -) 1 amp NEB Q4H PRN PRN Reason: SHORT OF BREATH/WHEEZING Calcitriol (Rocaltrol -) 0.25 mcg PO DAILY [facility] Stop: 04/12/19 10:01 Last Admin: 04/11/19 18:35 Dose: 0.25 mcg Calcium Acetate (Phoslo -) 667 mg PO TIDCM [facility] Chlorhexidine Gluconate (Hibiclens For Decolonization -) 1 applic TP HS [facility] Last Admin: 04/11/19 21:37 Dose: 1 applic Doxazosin Mesylate (Cardura -) 4 mg PO DAILY [facility] Last Admin: 04/11/19 11:56 Dose: 4 mg Fluticasone Propionate (Flonase -) 1 spray NS DAILY [facility] Last Admin: 04/11/19 11:55 Dose: 1 spray Gabapentin (Neurontin -) 100 mg PO BID [facility] Last Admin: 04/11/19 21:36 Dose: 100 mg Hydromorphone HCl (Dilaudid Vial -) 2 mg IVPUSH Q6H PRN PRN Reason: PAIN LEVEL 6-10 Last Admin: 04/11/19 22:27 Dose: 2 mg Piperacillin Sod/Tazobactam (Sod 2.25 gm/ Dextrose) 50 mls @ 100 mls/hr IVPB Q8H-IV [facility]; Protocol Last Admin: 04/12/19 02:27 Dose: 100 mls/hr Insulin Aspart (Novolog Vial Sliding Scale -) 1 vial SQ HS [facility]; Protocol Last Admin: 04/11/19 22:24 Dose: 4 units Insulin Aspart (Novolog Vial Sliding Scale -) 1 vial SQ TIDAC [facility]; Protocol Last Admin: 04/12/19 06:40 Dose: 2 units Lidocaine (Lidoderm Patch -) 1 patch TP DAILY [facility] Last Admin: 04/11/19 11:55 Dose: 1 patch Methadone HCl (Dolophine -) 2.5 mg PO TID [facility] Last Admin: 12/15/19 05:31 Dose: 2.5 mg Miscellaneous (Lidoderm Patch Removal) 1 each MC DAILY@2200 [facility] Last Admin: 04/11/19 21:39 Dose: Not Given Morphine Sulfate (Morphine Injection -) 4 mg IVPUSH Q4H PRN PRN Reason: PAIN LEVEL 6-10 Last Admin: 04/11/19 18:36 Dose: 4 mg Mupirocin (Bactroban Ointment (For Decolonization) -) 1 applic NS BID [facility] Stop: 04/15/19 21:59 Last Admin: 04/11/19 21:36 Dose: 1 applic Nifedipine (Procardia Xl -) 90 mg PO DAILY [facility] Last Admin: 04/11/19 11:53 Dose: 90 mg Petrolatum (Vaseline) 1 applic TP DAILY PRN PRN Reason: DRY SKIN Trazodone HCl 400 mg/ (Trazodone HCl 50 mg) 450 mg PO HS [facility] Last Admin: 04/11/19 22:15 Dose: 450 mg Vancomycin HCl (Vancomycin Oral Solution) 125 mg PO Q6HPO [facility] Last Admin: 04/12/19 05:31 Dose: 125 mg - Objective Vital Signs: Vital Signs Temperature 98 F 04/12/19 06:00 Pulse Rate 73 04/12/19 08:00 Respiratory Rate 22 H 04/12/19 08:00 Blood Pressure 107/67 04/12/19 08:00 O2 Sat by Pulse Oximetry (%) 98 04/11/19 22:00 Constitutional: Yes: No Distress, Calm Cardiovascular: Yes: S1, S2 Respiratory: Yes: Regular, CTA Bilaterally Gastrointestinal: Yes: Normal Bowel Sounds, Soft Musculoskeletal: Yes: WNL Extremities: Yes: Other Neurological: Yes: Alert, Oriented Psychiatric: Yes: Alert, Oriented Labs: CBC, BMP 04/11/19 06:00 04/11/19 06:00 INR, PTT INR 1.27 (0.83-1.09) H 04/11/19 06:00 Assessment/Plan 61 year old male with a past medical history of DM, HTN, ESRD on dialysis (TThS) , left BKA, diabetic neuropathy, hx of MRSA bacteremia, presenting for a sepsis from likely osteomyelitis of R foot. sepsis osteo r foot ,rsa bacteremia esrd htn dm gas gangrene plan repeat blood cx negative continue vanco for a total of 2 weeks following levels can give it during dialysis rest continue current mgmt await for finalization of the cx from the wound
[2019-04-12] MEDS: morphine CARPU-JECT 4 MG/1 ML DISP.SYRIN IVPUSH PRN ×2 (09:01→15:41)
[2019-04-12] MEDS: GABAPENTIN 100 MG CAPSULE (FP) PO SCH ×2 (09:06→21:25)
[2019-04-12] MEDS: CALCITRIOL 0.25 MCG CAPSULE (FP) PO SCH (09:07)
[2019-04-12] MEDS: NIFEdipine E.R. 90 MG TABLET (FP) PO SCH (09:07)
[2019-04-12] MEDS: MUPIROCIN 2% TOPICAL OINTMENT FOR DECOLONIZATION NS SCH ×2 (09:08→21:24)
[2019-04-12] MEDS: FLUTICASONE PROP 0.05% 16 GM NASAL SPRAY NS SCH (09:08)
[2019-04-12] MEDS: DOXAZOSIN MESYLATE 4 MG TABLET PO SCH (09:40)
[2019-04-12] MEDS: LIDOCAINE 5% TOPICAL PATCH TP SCH (09:40)
[2019-04-12 10:00] LABS: BASO % 0.4 % (0-2.0); EOS % 1.3 % (0-4.5); HEMATOCRIT 25.3 % (35.4-49); HEMOGLOBIN 7.9 GM/dL (11.7-16.9); LYMPH % 8.7 % (8-40); MCH 27.7 pg (25.7-33.7); MCHC 31.4 g/dl (32.0-35.9); MEAN CELL VOLUME 88.3 fl (80-96); MEAN PLT VOLUME 8.9 fl (7.5-11.1); MONO % 5.3 % (3.8-10.2); NEUT % 84.3 % (42.8-82.8); PLATELET COUNT 232 K/MM3 (134-434); RBC 2.87 M/mm3 (4.00-5.60); RDW 16.8 % (11.9-15.9); WHITE BLOOD COUNT 12.8 K/mm3 (4.0-10.0)
[2019-04-12 10:27] LABS: ALBUMIN 1.4 g/dl (3.4-5.0); BILIRUBIN,TOTAL 0.4 mg/dL (0.2-1); BLOOD UREA NITROGEN 25.6 mg/dL (7-18); CALCIUM 7.1 mg/dL (8.5-10.1); POTASSIUM 3.8 mmol/L (3.5-5.1); TOT PROT 5.2 g/dl (6.4-8.2)
--- NOTE | 2019-04-12 11:46 | PN ---
Physical Exam: SUBJECTIVE: Patient seen and examined at the bedside. Patient states that he is feeling a lot better now and is in better spirits. He notes that he continues to have significant pain at the R BKA amputation site. Noted that he has diarrhea. States that he has some appetite but it is decreased. Denied cp, sob, abd pain, n/v, fever, chills, headaches, dizziness, lightheadedness. OBJECTIVE: Vital Signs Period Temp Pulse Resp BP Sys/Gutierrez Pulse Ox Last 24 Hr 97.5 F-98.6 F 68-88 16-27 95-137/62-78 98-98 GENERAL: The patient is awake, alert, and fully oriented, in mild acute distress. HEAD: Normal with no signs of trauma. EYES: PERRL, extraocular movements intact, sclera anicteric, conjunctiva clear. ENT: oropharynx clear without exudates, moist mucous membranes. NECK: Trachea midline, full range of motion, supple. LUNGS: Breath sounds equal, clear to auscultation bilaterally, no wheezes, no crackles, no accessory muscle use. HEART: Regular rate and rhythm, S1, S2 without murmur, rubs. ABDOMEN: Soft, nontender, nondistended, normoactive bowel sounds, no guarding, no rebound, no masses. EXTREMITIES: Amputation L BKA and R BKA. Dressings dry on R side and in immobilizer. NEUROLOGICAL: Cranial nerves II through XII grossly intact. 5/5 muscle strength upper and lower extremities, bilaterally. L and R BKA. PSYCH: Mildly depressed, in better mood than prior to BKA. Laboratory Results - last 24 hr 04/11/19 04/11/19 04/11/19 11:50 16:40 22:20 WBC RBC Hgb Hct MCV MCH MCHC RDW Plt Count MPV Absolute Neuts (auto) Neutrophils % Lymphocytes % Monocytes % Eosinophils % Basophils % Nucleated RBC % Sodium Potassium Chloride Carbon Dioxide Anion Gap BUN Creatinine Est GFR (CKD-EPI)AfAm Est GFR (CKD-EPI)NonAf POC Glucometer 165 204 323 Random Glucose Calcium Total Bilirubin AST ALT Alkaline Phosphatase Total Protein Albumin 04/12/19 04/12/19 04/12/19 05:24 09:30 09:30 WBC 12.8 H RBC 2.87 L Hgb 7.9 L Hct 25.3 L MCV 88.3 MCH 27.7 MCHC 31.4 L RDW 16.8 H Plt Count 232 MPV 8.9 Absolute Neuts (auto) 10.8 H Neutrophils % 84.3 H Lymphocytes % 8.7 D Monocytes % 5.3 Eosinophils % 1.3 D Basophils % 0.4 Nucleated RBC % 0 Sodium 141 Potassium 3.8 Chloride 103 Carbon Dioxide 31 Anion Gap 7 L BUN 25.6 H Creatinine 4.0 H Est GFR (CKD-EPI)AfAm 17.29 Est GFR (CKD-EPI)NonAf 14.92 POC Glucometer 172 Random Glucose 71 L Calcium 7.1 L Total Bilirubin 0.4 AST 9 L ALT 8 L Alkaline Phosphatase 151 H Total Protein 5.2 L Albumin 1.4 L 04/12/19 11:34 WBC RBC Hgb Hct MCV MCH MCHC RDW Plt Count MPV Absolute Neuts (auto) Neutrophils % Lymphocytes % Monocytes % Eosinophils % Basophils % Nucleated RBC % Sodium Potassium Chloride Carbon Dioxide Anion Gap BUN Creatinine Est GFR (CKD-EPI)AfAm Est GFR (CKD-EPI)NonAf POC Glucometer 71 Random Glucose Calcium Total Bilirubin AST ALT Alkaline Phosphatase Total Protein Albumin Active Medications Generic Name Dose Route Start Last Admin Trade Name Freq PRN Reason Stop Dose Admin Acetaminophen 1,000 mg 04/10/19 20:40 04/11/19 06:48 Ofirmev Injection - IVPB 1,000 mg Q6H PRN Administration PAIN LEVEL 1-5 Albuterol Sulfate 1 amp 04/10/19 14:55 Ventolin 0.083% Nebulizer Soln - NEB Q4H PRN SHORT OF BREATH/WHEEZING Calcium Acetate 667 mg 04/12/19 08:00 04/12/19 08:30 Phoslo - PO 667 mg TIDCM IGGY Administration Chlorhexidine Gluconate 1 applic 04/10/19 22:00 04/11/19 21:37 Hibiclens For Decolonization - TP 1 applic HS IGGY Administration Doxazosin Mesylate 4 mg 04/11/19 10:00 04/12/19 09:40 Cardura - PO 4 mg DAILY IGGY Administration Fluticasone Propionate 1 spray 04/11/19 10:00 04/12/19 09:08 Flonase - NS 1 spray DAILY IGGY Administration Gabapentin 100 mg 04/10/19 22:00 04/12/19 09:06 Neurontin - PO 100 mg BID IGGY Administration Hydromorphone HCl 2 mg 04/11/19 10:58 04/11/19 22:27 Dilaudid Vial - IVPUSH 2 mg Q6H PRN Administration PAIN LEVEL 6-10 Piperacillin Sod/Tazobactam 50 mls @ 100 mls/hr 04/10/19 18:00 04/12/19 02:27 Sod 2.25 gm/ Dextrose IVPB 100 mls/hr Q8H-IV IGGY Administration Protocol Insulin Aspart 1 vial 04/10/19 22:00 04/11/19 22:24 Novolog Vial Sliding Scale - SQ 4 units HS IGGY Administration Protocol Insulin Aspart 1 vial 04/10/19 16:30 04/12/19 06:40 Novolog Vial Sliding Scale - SQ 2 units TIDAC IGGY Administration Protocol Lidocaine 1 patch 04/11/19 10:00 04/12/19 09:40 Lidoderm Patch - TP 1 patch DAILY IGGY Administration Methadone HCl 2.5 mg 04/10/19 22:00 04/12/19 05:31 Dolophine - PO 2.5 mg TID IGGY Administration Miscellaneous 1 each 04/10/19 22:00 04/11/19 21:39 Lidoderm Patch Removal MC Not Given DAILY@2200 IGGY Morphine Sulfate 4 mg 04/11/19 16:12 04/12/19 09:01 Morphine Injection - IVPUSH 4 mg Q4H PRN Administration PAIN LEVEL 6-10 Mupirocin 1 applic 04/10/19 22:00 04/12/19 09:08 Bactroban Ointment (For Decolonization) - NS 04/15/19 21:59 1 applic BID IGGY Administration Nifedipine 90 mg 04/11/19 10:00 04/12/19 09:07 Procardia Xl - PO 90 mg DAILY IGGY Administration Petrolatum 1 applic 04/10/19 14:55 04/12/19 09:08 Vaseline TP 1 applic DAILY PRN Administration DRY SKIN Trazodone HCl 400 mg/ 450 mg 04/10/19 22:00 04/11/19 22:15 Trazodone HCl 50 mg PO 450 mg HS IGGY Administration Vancomycin HCl 125 mg 04/10/19 18:00 04/12/19 05:31 Vancomycin Oral Solution PO 125 mg Q6HPO IGGY Administration Active Medications Generic Name Dose Route Start Last Admin Trade Name Freq PRN Reason Stop Dose Admin Acetaminophen 1,000 mg 04/10/19 20:40 04/11/19 06:48 Ofirmev Injection - IVPB 1,000 mg Q6H PRN Administration PAIN LEVEL 1-5 Albuterol Sulfate 1 amp 04/10/19 14:55 Ventolin 0.083% Nebulizer Soln - NEB Q4H PRN SHORT OF BREATH/WHEEZING Calcium Acetate 667 mg 04/12/19 08:00 04/12/19 08:30 Phoslo - PO 667 mg TIDCM IGGY Administration Chlorhexidine Gluconate 1 applic 04/10/19 22:00 04/11/19 21:37 Hibiclens For Decolonization - TP 1 applic HS IGGY Administration Doxazosin Mesylate 4 mg 04/11/19 10:00 04/12/19 09:40 Cardura - PO 4 mg DAILY IGGY Administration Fluticasone Propionate 1 spray 04/11/19 10:00 04/12/19 09:08 Flonase - NS 1 spray DAILY IGGY Administration Gabapentin 100 mg 04/10/19 22:00 04/12/19 09:06 Neurontin - PO 100 mg BID IGGY Administration Hydromorphone HCl 2 mg 04/11/19 10:58 04/11/19 22:27 Dilaudid Vial - IVPUSH 2 mg Q6H PRN Administration PAIN LEVEL 6-10 Piperacillin Sod/Tazobactam 50 mls @ 100 mls/hr 04/10/19 18:00 04/12/19 02:27 Sod 2.25 gm/ Dextrose IVPB 100 mls/hr Q8H-IV IGGY Administration Protocol Insulin Aspart 1 vial 04/10/19 22:00 04/11/19 22:24 Novolog Vial Sliding Scale - SQ 4 units HS IGGY Administration Protocol Insulin Aspart 1 vial 04/10/19 16:30 04/12/19 06:40 Novolog Vial Sliding Scale - SQ 2 units TIDAC IGGY Administration Protocol Lidocaine 1 patch 04/11/19 10:00 04/12/19 09:40 Lidoderm Patch - TP 1 patch DAILY IGGY Administration Methadone HCl 2.5 mg 04/10/19 22:00 04/12/19 05:31 Dolophine - PO 2.5 mg TID IGGY Administration Miscellaneous 1 each 04/10/19 22:00 04/11/19 21:39 Lidoderm Patch Removal MC Not Given DAILY@2200 [facility] Morphine Sulfate 4 mg 04/11/19 16:12 04/12/19 09:01 Morphine Injection - IVPUSH 4 mg Q4H PRN Administration PAIN LEVEL 6-10 Mupirocin 1 applic 04/10/19 22:00 04/12/19 09:08 Bactroban Ointment (For Decolonization) - NS 04/15/19 21:59 1 applic BID IGGY Administration Nifedipine 90 mg 04/11/19 10:00 04/12/19 09:07 Procardia Xl - PO 90 mg DAILY IGGY Administration Petrolatum 1 applic 04/10/19 14:55 04/12/19 09:08 Vaseline TP 1 applic DAILY PRN Administration DRY SKIN Trazodone HCl 400 mg/ 450 mg 04/10/19 22:00 04/11/19 22:15 Trazodone HCl 50 mg PO 450 mg HS IGGY Administration Vancomycin HCl 125 mg 04/10/19 18:00 04/12/19 05:31 Vancomycin Oral Solution PO 125 mg Q6HPO IGGY Administration Microbiology 04/09/19 12:15 Foot - Rt Transmetatarsal Amp. Site Gram Stain - Final 04/09/19 12:15 Foot - Rt Transmetatarsal Amp. Site Wound Culture - Preliminary Enterococcus Faecalis Staphylococcus Latex Coag Pos Non Lactose Fermenting Gnb 04/09/19 10:42 Blood - Peripheral Venous Blood Culture - Preliminary NO GROWTH OBTAINED AFTER 72 HOURS, INCUBATION TO CONTINUE FOR 2 DAYS. 04/09/19 10:20 Blood - Peripheral Venous Blood Culture - Preliminary NO GROWTH OBTAINED AFTER 72 HOURS, INCUBATION TO CONTINUE FOR 2 DAYS. 04/07/19 18:00 Bone Gram Stain - Final 04/07/19 18:00 Bone Tissue Culture - Final Morganella Morganii Proteus Vulgaris Enterococcus Faecalis Mr S Aureus Alpha Hemolytic Streptococcus 04/07/19 18:00 Bone Anaerobic Culture - Final 04/07/19 17:30 Foot - Rt Transmetatarsal Amp. Site Gram Stain - Final 04/07/19 17:30 Foot - Rt Transmetatarsal Amp. Site Wound Culture - Final Morganella Morganii Enterococcus Faecalis Mr S Aureus Proteus Vulgaris 04/06/19 17:45 Foot - Right Gram Stain - Final 04/06/19 17:45 Foot - Right Wound Culture - Final Proteus Vulgaris Mr S Aureus Enterococcus Faecalis 04/08/19 16:10 Stool Clostridioides difficile Antigen - Final 04/08/19 16:10 Stool Clostridioides difficile Toxin Assay - Final 04/06/19 17:15 Blood - Peripheral Venous Blood Culture - Final Presumptive Mrsa (Pbp2a Pos) Streptococcus Mitis 04/06/19 17:45 Blood - Peripheral Venous Blood Culture - Final Mr S Aureus ASSESSMENT/PLAN: Luciano Judge is a 61 year old male with a past medical history of DM, HTN, ESRD on dialysis (TThS), left BKA, diabetic neuropathy, hx of MRSA bacteremia presenting for a sepsis from likely osteomyelitis of R foot. Sepsis from Osteomyelitis - elevated WBC and febrile 100.4, has been afebrile - foot x-ray with emphysematous changes, deformity, lucency, destructive changes of the distal head of third metatarsal, metatarsal head, base of R third proximal phalynx consistent with osteomyelitis - ID consulted, continue Zosyn and vancomycin, random vanco levels to guide treatment, will need total 2 weeks of vancomycin - follow random vanco level to redose - bacteremia with blood culture growing MRSA, repeat blood cultures negative - wound culture as above, continue to follow - pathology results showing that bone margins are not clear, osteo involvement - seen by podiatry and has undergone TMA and subsequent BKA guillotine, will undergo closure later in the week with vascular - POD day #2 R BKA - echo ordered to evaluate for ?endocarditis, showing normal LV function, size, function, normal EF, ?poor LV compliance, borderline aortic root dilation, trace mitral regurg, mild pericardial effusion - hyperbaric consult as per podiatry ESRD - dialysis TThS schedule - avoid fluid overload - nephrology consulted, recs appreciated Diarrhea secondary to likely c diff - positive for c diff antigen - continue oral vancomycin 125mg q6h HTN - continue home meds - cardio consulted, recs appreciated DM - hold Levemir 12 units qAM, due to hypoglycemic episode, may resume if glucose levels stabilize or rise - ISS - BGM - A1c 10.8 - will require tight insulin dosing in the setting of osteomyelitis - endocrinology consulted, recs appreciated Anemia - likely in setting of chronic renal disease - iron studies showing anemia of chronic disease - given Epogen during dialysis - continue to monitor H/H - 2 units of PRBCs given Shoulder pain/chronic pain - methadone 2.5mg tid, confirmed with [facility] and confirmed with patient's pharmacy [facility], last ordered and dispensed on 03/13 for a 30 day course, held currently in favor of Dilaudid for pain control s/p BKA - lidocaine patch - pain management consulted Hx of PTSD - trazodone 450mg qhs Prophylaxis - heparin 5000 units subq bid FEN - no IVF, avoid fluid overload - continue to monitor electrolytes and replete as necessary - renal diet Dispo - stable for transfer to [facility]-surg Visit type - Emergency Visit Emergency Visit: Yes ED Registration Date: 04/06/19 Care time: The patient presented to the Emergency Department on the above date and was hospitalized for further evaluation of their emergent condition. - New Patient This patient is new to me today: No - Critical Care Critical Care patient: No
[2019-04-12] MEDS: HYDROmorphone HCl 2 MG/ML VIAL IVPUSH PRN (12:25)
--- NOTE | 2019-04-12 13:04 | PN ---
Teaching Attending Note Name of Resident: Srini Adame ATTENDING PHYSICIAN STATEMENT I saw and evaluated the patient. I reviewed the resident's note and discussed the case with the resident. I agree with the resident's findings and plan as documented. SUBJECTIVE: Complains of pain RLE s/p guillotine amputation 04/10/19 and longstanding insomnia. No fever/chills. OBJECTIVE: Afebrile, Hemodynamically Stable Last Vital Signs Temp Pulse Resp BP Pulse Ox 97.6 F 76 24 H 118/76 98 04/12/19 10:00 04/12/19 12:00 04/12/19 12:00 04/12/19 12:00 04/12/19 09:00 Heart - S1, S2, RRR Chest - clear to auscultation Abdomen - Soft, non-tender. Bowel Sounds normal Extremities - LLE BKA, RLE surgical site dressed. Neuro - AAO x 3. Moving all extremities. R and L BKA. Laboratory Results - last 24 hr 04/11/19 04/11/19 04/12/19 16:40 22:20 05:24 WBC RBC Hgb Hct MCV MCH MCHC RDW Plt Count MPV Absolute Neuts (auto) Neutrophils % Lymphocytes % Monocytes % Eosinophils % Basophils % Nucleated RBC % Sodium Potassium Chloride Carbon Dioxide Anion Gap BUN Creatinine Est GFR (CKD-EPI)AfAm Est GFR (CKD-EPI)NonAf POC Glucometer 204 323 172 Random Glucose Calcium Total Bilirubin AST ALT Alkaline Phosphatase Total Protein Albumin 04/12/19 04/12/19 04/12/19 09:30 09:30 11:34 WBC 12.8 H RBC 2.87 L Hgb 7.9 L Hct 25.3 L MCV 88.3 MCH 27.7 MCHC 31.4 L RDW 16.8 H Plt Count 232 MPV 8.9 Absolute Neuts (auto) 10.8 H Neutrophils % 84.3 H Lymphocytes % 8.7 D Monocytes % 5.3 Eosinophils % 1.3 D Basophils % 0.4 Nucleated RBC % 0 Sodium 141 Potassium 3.8 Chloride 103 Carbon Dioxide 31 Anion Gap 7 L BUN 25.6 H Creatinine 4.0 H Est GFR (CKD-EPI)AfAm 17.29 Est GFR (CKD-EPI)NonAf 14.92 POC Glucometer 71 Random Glucose 71 L Calcium 7.1 L Total Bilirubin 0.4 AST 9 L ALT 8 L Alkaline Phosphatase 151 H Total Protein 5.2 L Albumin 1.4 L Current Medications Generic Name Dose Route Start Last Admin Trade Name Freq PRN Reason Stop Dose Admin Acetaminophen 1,000 mg 04/10/19 20:40 04/11/19 06:48 Ofirmev Injection - IVPB 1,000 mg Q6H PRN Administration PAIN LEVEL 1-5 Albuterol Sulfate 1 amp 04/10/19 14:55 Ventolin 0.083% Nebulizer Soln - NEB Q4H PRN SHORT OF BREATH/WHEEZING Calcium Acetate 667 mg 04/12/19 08:00 04/12/19 12:23 Phoslo - PO 667 mg TIDCM IGGY Administration Chlorhexidine Gluconate 1 applic 04/10/19 22:00 04/11/19 21:37 Hibiclens For Decolonization - TP 1 applic HS IGGY Administration Doxazosin Mesylate 4 mg 04/11/19 10:00 04/12/19 09:40 Cardura - PO 4 mg DAILY IGGY Administration Fluticasone Propionate 1 spray 04/11/19 10:00 04/12/19 09:08 Flonase - NS 1 spray DAILY IGGY Administration Gabapentin 100 mg 04/10/19 22:00 04/12/19 09:06 Neurontin - PO 100 mg BID IGGY Administration Hydromorphone HCl 2 mg 04/11/19 10:58 04/12/19 12:25 Dilaudid Vial - IVPUSH 2 mg Q6H PRN Administration PAIN LEVEL 6-10 Piperacillin Sod/Tazobactam 50 mls @ 100 mls/hr 04/10/19 18:00 04/12/19 09:30 Sod 2.25 gm/ Dextrose IVPB 100 mls/hr Q8H-IV IGGY Administration Protocol Insulin Aspart 1 vial 04/10/19 22:00 04/11/19 22:24 Novolog Vial Sliding Scale - SQ 4 units HS IGGY Administration Protocol Insulin Aspart 1 vial 04/10/19 16:30 04/12/19 11:50 Novolog Vial Sliding Scale - SQ Not Given TIDAC IGGY Protocol Lidocaine 1 patch 04/11/19 10:00 04/12/19 09:40 Lidoderm Patch - TP 1 patch DAILY IGGY Administration Methadone HCl 2.5 mg 04/10/19 22:00 04/12/19 05:31 Dolophine - PO 2.5 mg TID IGGY Administration Miscellaneous 1 each 04/10/19 22:00 04/11/19 21:39 Lidoderm Patch Removal MC Not Given DAILY@2200 IGGY Morphine Sulfate 4 mg 04/11/19 16:12 04/12/19 09:01 Morphine Injection - IVPUSH 4 mg Q4H PRN Administration PAIN LEVEL 6-10 Mupirocin 1 applic 04/10/19 22:00 04/12/19 09:08 Bactroban Ointment (For Decolonization) - NS 04/15/19 21:59 1 applic BID IGGY Administration Nifedipine 90 mg 04/11/19 10:00 04/12/19 09:07 Procardia Xl - PO 90 mg DAILY IGGY Administration Petrolatum 1 applic 04/10/19 14:55 04/12/19 09:08 Vaseline TP 1 applic DAILY PRN Administration DRY SKIN Trazodone HCl 400 mg/ 450 mg 04/10/19 22:00 04/11/19 22:15 Trazodone HCl 50 mg PO 450 mg HS IGGY Administration Vancomycin HCl 125 mg 04/10/19 18:00 04/12/19 12:31 Vancomycin Oral Solution PO 125 mg Q6HPO IGGY Administration Home Medications Medication Instructions Recorded Albuterol 0.083% Nebulizer Coretta 1 amp NEB Q4H PRN #120 amp 08/23/17 [Ventolin 0.083% Nebulizer Soln -] Fluticasone Prop 0.05% Nasal 1 - 2 spray NS DAILY #1 spray.pump 08/23/17 [Flonase -] Doxazosin Mesylate [Cardura -] 4 mg PO DAILY tablet 10/06/17 Gabapentin [Neurontin -] 100 mg PO BID capsule 10/06/17 Insulin Sliding Scale [Novolog 1 vial SQ ACHS units 10/06/17 Vial Sliding Scale -] Lidocaine 5% Patch [Lidoderm -] 1 patch TP DAILY patch 10/06/17 Lidocaine Patch Removal [Lidoderm 1 each MC DAILY@0 each 10/06/17 Patch Removal] Insulin (Levemir) [Levemir Vial] 12 unit SQ DAILY@0700 04/07/19 Nifedipine ER [Procardia XL -] 90 mg PO DAILY 04/07/19 traZODone HCL [Desyrel -] 450 mg PO HS 04/07/19 Microbiology 12/12/19 12:15 Foot - Rt Transmetatarsal Amp. Site Gram Stain - Final 04/09/19 12:15 Foot - Rt Transmetatarsal Amp. Site Wound Culture - Preliminary Enterococcus Faecalis Staphylococcus Latex Coag Pos Non Lactose Fermenting Gnb 04/09/19 10:42 Blood - Peripheral Venous Blood Culture - Preliminary NO GROWTH OBTAINED AFTER 72 HOURS, INCUBATION TO CONTINUE FOR 2 DAYS. 04/09/19 10:20 Blood - Peripheral Venous Blood Culture - Preliminary NO GROWTH OBTAINED AFTER 72 HOURS, INCUBATION TO CONTINUE FOR 2 DAYS. 04/07/19 18:00 Bone Gram Stain - Final 04/07/19 18:00 Bone Tissue Culture - Final Morganella Morganii Proteus Vulgaris Enterococcus Faecalis Mr S Aureus Alpha Hemolytic Streptococcus 04/07/19 18:00 Bone Anaerobic Culture - Final 04/07/19 17:30 Foot - Rt Transmetatarsal Amp. Site Gram Stain - Final 04/07/19 17:30 Foot - Rt Transmetatarsal Amp. Site Wound Culture - Final Morganella Morganii Enterococcus Faecalis Mr S Aureus Proteus Vulgaris 04/06/19 17:45 Foot - Right Gram Stain - Final 04/06/19 17:45 Foot - Right Wound Culture - Final Proteus Vulgaris Mr S Aureus Enterococcus Faecalis 04/08/19 16:10 Stool Clostridioides difficile Antigen - Final 04/08/19 16:10 Stool Clostridioides difficile Toxin Assay - Final 04/06/19 17:15 Blood - Peripheral Venous Blood Culture - Final Presumptive Mrsa (Pbp2a Pos) Streptococcus Mitis 04/06/19 17:45 Blood - Peripheral Venous Blood Culture - Final Mr S Aureus ASSESSMENT/PLAN: 63 year old male with PMhx of ESRD on HD (TTS), IDDM, HTN, PVD s/p L BKA, Diabetic neuropathy, prior h/o MRSA bacteremia 09/2017 suspected from HD catheter , Right IJ thrombus in 09/2017 (suspected catheter related) admitted with progressive non-healing right foot swelling, redness, foul smelling discharge, chills. Right foot xray: soft tissue swelling with soft tissue emphysematous changes, deformities consistent with osteomyelitis noted 1. Sepsis secondary to R Foot Osteomyelitis/Cellulitis/Necrotizing fasciitis with Bacteremia POD 2 s/p guillotine amputation - BKA. reporting pain. IV opiates as per surgical team/Pain management. POD 5 s/p transmetatarsal amputation. which was unsuccessful in curbing the infection, necessitating BKA. MRSA/Strep mitis Bacteremia - source ?foot versus AVF Wound/Surgical/Bone Cx - polymicrobial as above. Blood Cx - Strep mitis/MRSA, repeat BCx negative Fever resolving but significant leukocytosis, also resolving WBC 28.1 ---> 12.8 TTE no evidence of vegetations - no indication for CHAKA as per Cardiology. Will defer to ID/Cardio re: optimal Ix for exclude endocarditis. On IV Zosyn/Vanco. Continue IV Vancomycin for 2 weeks as per ID (dose to be given after HD). 2. ESRD on HD TTS via UE AVF No signs of infection at fistula site On IV Zosyn/Vancomycin Repeat Blood Cx negative Further Abx titration by ID. 3. DM 2 - uncontrolled, A1C 10.8. Hyperglycemia sec to infection/poor compliance Maintain on Novolog sliding scale. Levemir held. 4. HTN - Continue Nifedipine, Doxazosin 5. ESRD on HD TTS - Nephrology following. 6. Normocytic Anemia likely sec to ESRD - Procrit as per Nephrology. H/H 7.9/ 25.3 s/p fracisco-op transfusion of 2 units PRBCs 7. Chronic Pain Syndrome - Methadone dose confirmed. Pain Management consulted for further pain control post-op in light of Methadone use, awaiting evaluation. 8. Cdiff Ag positive/Toxin negative - started on Vanomycin PO. Still having diarrhea. ID following. DVT Px - Heparin SQ
--- NOTE | 2019-04-12 17:39 | PN ---
Progress Note, Physician History of Present Illness: Pt seen and examined at bedside. He is awake and alert. He denies shortness of breath. - Current Medication List Current Medications: Active Medications Acetaminophen (Ofirmev Injection -) 1,000 mg IVPB Q6H PRN PRN Reason: PAIN LEVEL 1-5 Last Admin: 04/11/19 06:48 Dose: 1,000 mg Albuterol Sulfate (Ventolin 0.083% Nebulizer Soln -) 1 amp NEB Q4H PRN PRN Reason: SHORT OF BREATH/WHEEZING Calcium Acetate (Phoslo -) 667 mg PO TIDCM [facility] Last Admin: 04/12/19 12:23 Dose: 667 mg Chlorhexidine Gluconate (Hibiclens For Decolonization -) 1 applic TP HS [facility] Last Admin: 04/11/19 21:37 Dose: 1 applic Doxazosin Mesylate (Cardura -) 4 mg PO DAILY [facility] Last Admin: 04/12/19 09:40 Dose: 4 mg Fluticasone Propionate (Flonase -) 1 spray NS DAILY [facility] Last Admin: 04/12/19 09:08 Dose: 1 spray Gabapentin (Neurontin -) 100 mg PO BID [facility] Last Admin: 04/12/19 09:06 Dose: 100 mg Hydromorphone HCl (Dilaudid Vial -) 2 mg IVPUSH Q6H PRN PRN Reason: PAIN LEVEL 6-10 Last Admin: 04/12/19 12:25 Dose: 2 mg Piperacillin Sod/Tazobactam (Sod 2.25 gm/ Dextrose) 50 mls @ 100 mls/hr IVPB Q8H-IV [facility]; Protocol Last Admin: 04/12/19 09:30 Dose: 100 mls/hr Insulin Aspart (Novolog Vial Sliding Scale -) 1 vial SQ HS [facility]; Protocol Last Admin: 04/11/19 22:24 Dose: 4 units Insulin Aspart (Novolog Vial Sliding Scale -) 1 vial SQ TIDAC [facility]; Protocol Last Admin: 04/12/19 16:48 Dose: 2 units Lidocaine (Lidoderm Patch -) 1 patch TP DAILY [facility] Last Admin: 04/12/19 09:40 Dose: 1 patch Methadone HCl (Dolophine -) 2.5 mg PO TID [facility] Last Admin: 04/12/19 05:31 Dose: 2.5 mg Miscellaneous (Lidoderm Patch Removal) 1 each DAILY@2200 [facility] Last Admin: 04/11/19 21:39 Dose: Not Given Morphine Sulfate (Morphine Injection -) 4 mg IVPUSH Q4H PRN PRN Reason: PAIN LEVEL 6-10 Last Admin: 04/12/19 15:41 Dose: 4 mg Mupirocin (Bactroban Ointment (For Decolonization) -) 1 applic NS BID [facility] Stop: 04/15/19 21:59 Last Admin: 04/12/19 09:08 Dose: 1 applic Nifedipine (Procardia Xl -) 90 mg PO DAILY [facility] Last Admin: 04/12/19 09:07 Dose: 90 mg Petrolatum (Vaseline) 1 applic TP DAILY PRN PRN Reason: DRY SKIN Last Admin: 04/12/19 09:08 Dose: 1 applic Trazodone HCl 400 mg/ (Trazodone HCl 50 mg) 450 mg PO HS [facility] Last Admin: 04/11/19 22:15 Dose: 450 mg Vancomycin HCl (Vancomycin Oral Solution) 125 mg PO Q6HPO [facility] Last Admin: 04/12/19 12:31 Dose: 125 mg - Objective Vital Signs: Vital Signs Temperature 98.3 F 04/12/19 14:00 Pulse Rate 75 04/12/19 14:00 Respiratory Rate 20 04/12/19 14:00 Blood Pressure 120/85 04/12/19 14:00 O2 Sat by Pulse Oximetry (%) 98 04/12/19 09:00 Constitutional: Yes: Calm Eyes: Yes: Conjunctiva Clear HENT: Yes: Atraumatic Neck: Yes: Supple Cardiovascular: Yes: S1, S2 Respiratory: Yes: CTA Bilaterally Gastrointestinal: Yes: Normal Bowel Sounds, Soft Extremities: Yes: Other (foot amputation) Neurological: Yes: Oriented Psychiatric: Yes: Oriented Labs: CBC, BMP 04/12/19 09:30 04/12/19 09:30 INR, PTT INR 1.27 (0.83-1.09) H 04/11/19 06:00 Problem List - Problems (1) ESRD (end stage renal disease) on dialysis Code(s): N18.6 - END STAGE RENAL DISEASE; Z99.2 - DEPENDENCE ON RENAL DIALYSIS Assessment/Plan Current Medications Generic Name Dose Route Start Last Admin Trade Name Freq PRN Reason Stop Dose Admin Acetaminophen 1,000 mg 04/10/19 20:40 04/11/19 06:48 Ofirmev Injection - IVPB 1,000 mg Q6H PRN Administration PAIN LEVEL 1-5 Albuterol Sulfate 1 amp 04/10/19 14:55 Ventolin 0.083% Nebulizer Soln - NEB Q4H PRN SHORT OF BREATH/WHEEZING Calcium Acetate 667 mg 04/12/19 08:00 04/12/19 12:23 Phoslo - PO 667 mg TIDCM [facility] Administration Chlorhexidine Gluconate 1 applic 04/10/19 22:00 04/11/19 21:37 Hibiclens For Decolonization - TP 1 applic HS [facility] Administration Doxazosin Mesylate 4 mg 04/11/19 10:00 04/12/19 09:40 Cardura - PO 4 mg DAILY [facility] Administration Fluticasone Propionate 1 spray 04/11/19 10:00 04/12/19 09:08 Flonase - NS 1 spray DAILY [facility] Administration Gabapentin 100 mg 04/10/19 22:00 04/12/19 09:06 Neurontin - PO 100 mg BID [facility] Administration Hydromorphone HCl 2 mg 04/11/19 10:58 04/12/19 12:25 Dilaudid Vial - IVPUSH 2 mg Q6H PRN Administration PAIN LEVEL 6-10 Piperacillin Sod/Tazobactam 50 mls @ 100 mls/hr 04/10/19 18:00 04/12/19 09:30 Sod 2.25 gm/ Dextrose IVPB 100 mls/hr Q8H-IV [facility] Administration Protocol Insulin Aspart 1 vial 04/10/19 22:00 04/11/19 22:24 Novolog Vial Sliding Scale - SQ 4 units HS [facility] Administration Protocol Insulin Aspart 1 vial 04/10/19 16:30 04/12/19 16:48 Novolog Vial Sliding Scale - SQ 2 units TIDAC [facility] Administration Protocol Lidocaine 1 patch 04/11/19 10:00 04/12/19 09:40 Lidoderm Patch - TP 1 patch DAILY [facility] Administration Methadone HCl 2.5 mg 04/10/19 22:00 04/12/19 05:31 Dolophine - PO 2.5 mg TID [facility] Administration Miscellaneous 1 each 04/10/19 22:00 04/11/19 21:39 Lidoderm Patch Removal MC Not Given DAILY@2200 [facility] Morphine Sulfate 4 mg 04/11/19 16:12 04/12/19 15:41 Morphine Injection - IVPUSH 4 mg Q4H PRN Administration PAIN LEVEL 6-10 Mupirocin 1 applic 04/10/19 22:00 04/12/19 09:08 Bactroban Ointment (For Decolonization) - NS 04/15/19 21:59 1 applic BID [facility] Administration Nifedipine 90 mg 04/11/19 10:00 04/12/19 09:07 Procardia Xl - PO 90 mg DAILY [facility] Administration Petrolatum 1 applic 04/10/19 14:55 04/12/19 09:08 Vaseline TP 1 applic DAILY PRN Administration DRY SKIN Trazodone HCl 400 mg/ 450 mg 04/10/19 22:00 04/11/19 22:15 Trazodone HCl 50 mg PO 450 mg HS [facility] Administration Vancomycin HCl 125 mg 04/10/19 18:00 04/12/19 12:31 Vancomycin Oral Solution PO 125 mg Q6HPO [facility] Administration 1. ESRD on HD 2. Infected foot wound 3. Anemia of CKD 4. DM 5. Metabolic acidosis 6. Leukocytosis 7. PVD Plan - pt tolerated HD yesterday - next HD on Saturday - phoslo - renal diet - check phos
[2019-04-12] MEDS: TRAZODONE HCL PO SCH (21:24)
[2019-04-12] MEDS: MELATONIN 5 MG TABLETS PO SCH (21:25)
[2019-04-12] MEDS: CHLORHEXIDINE GLUCONATE 4% CLEANSER FOR DECOLONIZATION TP SCH (21:25)
[2019-04-12] MEDS: LIDOCAINE PATCH REMOVAL MC SCH (22:27)
[2019-04-13] MEDS ORDERED: PETROLATUM, WHITE 30 GM TUBE TP PRN (02:15)
[2019-04-13] MEDS ORDERED: ALBUTEROL SO4 0.083% IH SOL 2.5 MG/3 ML VIAL.NEB. NEB PRN (02:15)
[2019-04-13] MEDS ORDERED: ACETAMINOPHEN 1000 MG/100 ML VIAL (NON FORMULARY) IVPB PRN (02:15)
[2019-04-13] MEDS ORDERED: HYDROmorphone HCl 2 MG/ML VIAL IVPUSH PRN (02:15)
[2019-04-13] MEDS ORDERED: LIDOCAINE PATCH REMOVAL MC SCH (02:15)
--- NOTE | 2019-04-13 05:36 | PN ---
Progress Note, Physician Chief Complaint: Pt A&Ox3; + pain at LE surgical site; says "morphine alone is not enough". No chest pain or dyspnea. History of Present Illness: 63-year-old black male with PMHx right LE BKA, DM, HTN, anemia, presents with a foul-smelling purulent open wound on his right foot. 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 - Current Medication List Current Medications: Active Medications Acetaminophen (Ofirmev Injection -) 1,000 mg IVPB Q6H PRN PRN Reason: PAIN LEVEL 1-5 Albuterol Sulfate (Ventolin 0.083% Nebulizer Soln -) 1 amp NEB Q4H PRN PRN Reason: SHORT OF BREATH/WHEEZING Calcium Acetate (Phoslo -) 667 mg PO TIDCM [facility] Last Admin: 04/12/19 17:49 Dose: 667 mg Doxazosin Mesylate (Cardura -) 4 mg PO DAILY [facility] Fluticasone Propionate (Flonase -) 1 spray NS DAILY [facility] Gabapentin (Neurontin -) 100 mg PO BID [facility] Hydromorphone HCl (Dilaudid Vial -) 2 mg IVPUSH Q6H PRN PRN Reason: PAIN LEVEL 6-10 Piperacillin Sod/Tazobactam (Sod 2.25 gm/ Dextrose) 50 mls @ 100 mls/hr IVPB Q8H-IV [facility]; Protocol Insulin Aspart (Novolog Vial Sliding Scale -) 1 vial SQ HS [facility]; Protocol Insulin Aspart (Novolog Vial Sliding Scale -) 1 vial SQ TIDAC [facility]; Protocol Lidocaine (Lidoderm Patch -) 1 patch TP DAILY [facility] Melatonin (Melatonin) 10 mg PO HS [facility] Last Admin: 04/12/19 21:25 Dose: 10 mg Methadone HCl (Dolophine -) 2.5 mg PO TID [facility] Miscellaneous (Lidoderm Patch Removal) 1 each MC DAILY@2200 [facility] Morphine Sulfate (Morphine Injection -) 4 mg IVPUSH Q4H PRN PRN Reason: PAIN LEVEL 6-10 Last Admin: 04/12/19 15:41 Dose: 4 mg Nifedipine (Procardia Xl -) 90 mg PO DAILY [facility] Petrolatum (Vaseline) 1 applic TP DAILY PRN PRN Reason: DRY SKIN Trazodone HCl 400 mg/ (Trazodone HCl 50 mg) 450 mg PO HS [facility] Vancomycin HCl (Vancomycin Oral Solution) 125 mg PO Q6HPO [facility] - Objective Vital Signs: Vital Signs Temperature 97.6 F 04/12/19 22:00 Pulse Rate 72 04/13/19 02:10 Respiratory Rate 20 04/13/19 02:10 Blood Pressure 115/68 04/13/19 02:10 O2 Sat by Pulse Oximetry (%) 96 04/12/19 21:00 Constitutional: Yes: Calm Eyes: Yes: WNL HENT: Yes: WNL Neck: Yes: WNL Cardiovascular: Yes: S1, S2, S4 Respiratory: Yes: WNL Gastrointestinal: Yes: WNL ...Rectal Exam: Yes: Deferred Genitourinary: No: Anuria Breast(s): Yes: WNL Extremities: Yes: Other (stephanie LE amputations) Edema: No Peripheral Pulses WNL: No Integumentary: Yes: Other Wound/Incision: Yes: Clean/Dry Neurological: Yes: Alert, Oriented, Weakness Psychiatric: Yes: Alert, Oriented Labs: CBC, BMP 04/12/19 09:30 04/12/19 09:30 INR, PTT INR 1.27 (0.83-1.09) H 04/11/19 06:00 Abnormal Lab Results 04/12/19 04/12/19 09:30 09:30 WBC 12.8 H RBC 2.87 L Hgb 7.9 L Hct 25.3 L MCHC 31.4 L RDW 16.8 H Absolute Neuts (auto) 10.8 H Neutrophils % 84.3 H Anion Gap 7 L BUN 25.6 H Creatinine 4.0 H Random Glucose 71 L Calcium 7.1 L AST 9 L ALT 8 L Alkaline Phosphatase 151 H Total Protein 5.2 L Albumin 1.4 L - ....Imaging Other: Image Reviewed Problem List - Problems (1) Status post amputation of right foot Assessment/Plan: s/p amputation POD #1. Denies pain. F/u with surgeon. Code(s): Z89.431 - ACQUIRED ABSENCE OF RIGHT FOOT (2) Diabetes Code(s): E11.9 - TYPE 2 DIABETES MELLITUS WITHOUT COMPLICATIONS (3) HTN (hypertension) Code(s): I10 - ESSENTIAL (PRIMARY) HYPERTENSION (4) Pericardial effusion Code(s): I31.3 - PERICARDIAL EFFUSION (NONINFLAMMATORY) (5) Diastolic CHF Code(s): I50.30 - UNSPECIFIED DIASTOLIC (CONGESTIVE) HEART FAILURE (6) Renal dysfunction Assessment/Plan: For hemodialysis. Code(s): N28.9 - DISORDER OF KIDNEY AND URETER, UNSPECIFIED (7) [place] cardiac risk >20% in next 10 years Code(s): Z91.89 - OTH PERSONAL RISK FACTORS, NOT ELSEWHERE CLASSIFIED Assessment/Plan CCU time spent: 35 minutes
[2019-04-13] MEDS ORDERED: METHADONE HCL 5 MG TABLET PO SCH (06:00)
[2019-04-13] MEDS: VANCOMYCIN 250 MG/5 ML ORAL SOLUTION PO SCH ×4 (06:31→23:57)
[2019-04-13] MEDS: INSULIN SLIDING SCALE (NOVOLOG) 1 VIAL SQ SCH ×5 (06:37→21:50)
[2019-04-13] MEDS ORDERED: INSULIN (NOVOLOG) ASPART 100 UNITS/ML 10ML VIAL ONE ×2 (07:26→21:27)
[2019-04-13 08:53] LABS: HEMOGLOBIN 8.8 GM/dL (11.7-16.9); MCH 27.9 pg (25.7-33.7); MCHC 31.5 g/dl (32.0-35.9); MEAN CELL VOLUME 88.4 fl (80-96); PLATELET COUNT 286 K/MM3 (134-434); RBC 3.16 M/mm3 (4.00-5.60); RDW 17.1 % (11.9-15.9); WHITE BLOOD COUNT 13.3 K/mm3 (4.0-10.0)
[2019-04-13] MEDS ORDERED: DEXTROSE 5%-WATER - 50 ML IVPB ONE (09:08)
[2019-04-13] MEDS ORDERED: PIPERACILLIN/TAZOBACTAM 2.25 GM VIAL IVPB ONE (09:08)
[2019-04-13 09:35] LABS: CALCIUM 7.3 mg/dL (8.5-10.1); CREATININE 4.8 mg/dL (0.55-1.3); PHOSPHOROUS 4.1 mg/dL (2.5-4.9); POTASSIUM 4.2 mmol/L (3.5-5.1)
--- NOTE | 2019-04-13 09:51 | PN ---
Progress Note (short form) - Note Progress Note: SURGERY 63yo m s/p Rt Guillotine amputation POD #3. Pt transferred from ICU to the floor yesterday. Pt states he is feeling much better and has been afebrile. Pt continues to complain of Rt leg pain. Pt denies fevers, chills, n/v, cp, sob. Last Vital Signs Temp Pulse Resp BP Pulse Ox 98.2 F 76 20 138/79 96 04/13/19 06:04 04/13/19 06:04 04/13/19 06:04 04/13/19 06:04 04/12/19 21:00 CBC, BMP 04/13/19 07:35 04/13/19 07:35 PE: Gen: A&O x3 Resp: breathing comfortably Ext: RLE shows clean incision s/p Guillotine with serosanguinous drainage, exposed bone and tendons, dressing changed at bedside. Problem List - Problems (1) Gangrene of right foot Assessment/Plan: Plan -pt infection appears to be improving, will plan for BKA on . -cont abx per ID -DVT ppx -knee immobilizer to prevent contracture Will follow Case discussed with Dr. Daly who agrees with plan Code(s): I96 - GANGRENE, NOT ELSEWHERE CLASSIFIED
[2019-04-13] MEDS ORDERED: MUPIROCIN 2% TOPICAL OINTMENT FOR DECOLONIZATION NS SCH (10:00)
[2019-04-13] MEDS ORDERED: PIPERACILLIN/TAZOB 2.25 GM 2.25 GM in DEXTROSE 5%-WATER - 50 ML IVPB SCH (10:00)
[2019-04-13] MEDS ORDERED: GABAPENTIN 100 MG CAPSULE (FP) PO SCH (10:00)
--- NOTE | 2019-04-13 10:05 | PN ---
Progress Note, Physician History of Present Illness: txed from icu feeling better rt leg pain - Current Medication List Current Medications: Active Medications Acetaminophen (Ofirmev Injection -) 1,000 mg IVPB Q6H PRN PRN Reason: PAIN LEVEL 1-5 Albuterol Sulfate (Ventolin 0.083% Nebulizer Soln -) 1 amp NEB Q4H PRN PRN Reason: SHORT OF BREATH/WHEEZING Calcium Acetate (Phoslo -) 667 mg PO TIDCM [facility] Last Admin: 04/12/19 17:49 Dose: 667 mg Doxazosin Mesylate (Cardura -) 4 mg PO DAILY [facility] Fluticasone Propionate (Flonase -) 1 spray NS DAILY [facility] Gabapentin (Neurontin -) 100 mg PO BID [facility] Hydromorphone HCl (Dilaudid Vial -) 2 mg IVPUSH Q6H PRN PRN Reason: PAIN LEVEL 6-10 Piperacillin Sod/Tazobactam (Sod 2.25 gm/ Dextrose) 50 mls @ 100 mls/hr IVPB Q8H-IV [facility]; Protocol Insulin Aspart (Novolog Vial Sliding Scale -) 1 vial SQ HS [facility]; Protocol Insulin Aspart (Novolog Vial Sliding Scale -) 1 vial SQ TIDAC [facility]; Protocol Last Admin: 04/13/19 06:42 Dose: Not Given Lidocaine (Lidoderm Patch -) 1 patch TP DAILY [facility] Melatonin (Melatonin) 10 mg PO HS [facility] Last Admin: 04/12/19 21:25 Dose: 10 mg Methadone HCl (Dolophine -) 2.5 mg PO TID [facility] Last Admin: 04/13/19 06:25 Dose: 2.5 mg Miscellaneous (Lidoderm Patch Removal) 1 each MC DAILY@2200 [facility] Morphine Sulfate (Morphine Injection -) 4 mg IVPUSH Q4H PRN PRN Reason: PAIN LEVEL 6-10 Last Admin: 04/12/19 15:41 Dose: 4 mg Nifedipine (Procardia Xl -) 90 mg PO DAILY [facility] Petrolatum (Vaseline) 1 applic TP DAILY PRN PRN Reason: DRY SKIN Trazodone HCl 400 mg/ (Trazodone HCl 50 mg) 450 mg PO HS [facility] Vancomycin HCl (Vancomycin Oral Solution) 125 mg PO Q6HPO [facility] Last Admin: 04/13/19 06:31 Dose: 125 mg - Objective Vital Signs: Vital Signs Temperature 98.2 F 04/13/19 06:04 Pulse Rate 76 04/13/19 06:04 Respiratory Rate 20 04/13/19 06:04 Blood Pressure 138/79 04/13/19 06:04 O2 Sat by Pulse Oximetry (%) 96 04/12/19 21:00 Constitutional: Yes: Calm, Mild Distress Cardiovascular: Yes: S1, S2 Respiratory: Yes: Regular, CTA Bilaterally Gastrointestinal: Yes: Normal Bowel Sounds, Soft Musculoskeletal: Yes: WNL Extremities: Yes: Other Wound/Incision: Yes: Dressing Dry and Intact Neurological: Yes: Alert, Oriented Psychiatric: Yes: Alert, Oriented Labs: CBC, BMP 04/13/19 07:35 04/13/19 07:35 INR, PTT INR 1.27 (0.83-1.09) H 04/11/19 06:00 Assessment/Plan 61 year old male with a past medical history of DM, HTN, ESRD on dialysis ([facility]) , left BKA, diabetic neuropathy, hx of MRSA bacteremia, presenting for a sepsis from likely osteomyelitis of R foot. sepsis osteo r foot esrd htn dm gas gangrene mrsa bacteremia plan will d/w the surgeon rest continue current mgmt for the time being
[2019-04-13] MEDS: morphine CARPU-JECT 4 MG/1 ML DISP.SYRIN IVPUSH PRN (11:18)
[2019-04-13] MEDS: CALCIUM ACETATE 667 MG CAPSULE (FP) PO SCH ×2 (11:20→17:14)
[2019-04-13] MEDS: NIFEdipine E.R. 90 MG TABLET (FP) PO SCH (11:21)
[2019-04-13] MEDS: FLUTICASONE PROP 0.05% 16 GM NASAL SPRAY NS SCH (11:22)
[2019-04-13] MEDS: DOXAZOSIN MESYLATE 4 MG TABLET PO SCH (11:22)
[2019-04-13] MEDS: LIDOCAINE 5% TOPICAL PATCH TP SCH (11:23)
--- NOTE | 2019-04-13 12:43 | PN ---
Progress Note (short form) - Note Progress Note: Renal follow up for ESRD on HD Seen and examined at the bedside awake and alert offers no acute complaints continues to have moderate pain in operative leg no sob, chest pain, fever or chills s/p last dialysis on Saturday Vital Signs Temperature 98.2 F 04/13/19 06:04 Pulse Rate 76 04/13/19 06:04 Respiratory Rate 20 04/13/19 06:04 Blood Pressure 138/79 04/13/19 06:04 O2 Sat by Pulse Oximetry (%) 96 04/12/19 21:00 Intake & Output 04/10/19 04/11/19 04/12/19 04/13/19 23:59 23:59 23:59 23:59 Intake Total 1726 1919 1010 0 Output Total 100 1900 150 Balance 1626 19 860 0 Weight 78.5 kg 80.286 kg NAD awake and alert neck supple, no JVD RRR CTA soft NT/ND no LE edema CBC, BMP 04/13/19 07:35 04/13/19 07:35 Current Medications Acetaminophen (Ofirmev Injection -) 1,000 mg IVPB Q6H PRN PRN Reason: PAIN LEVEL 1-5 Albuterol Sulfate (Ventolin 0.083% Nebulizer Soln -) 1 amp NEB Q4H PRN PRN Reason: SHORT OF BREATH/WHEEZING Calcium Acetate (Phoslo -) 667 mg PO TIDCM [facility] Last Admin: 04/13/19 11:20 Dose: 667 mg Doxazosin Mesylate (Cardura -) 4 mg PO DAILY [facility] Last Admin: 04/13/19 11:22 Dose: 4 mg Fluticasone Propionate (Flonase -) 1 spray NS DAILY [facility] Last Admin: 04/13/19 11:22 Dose: 1 spray Gabapentin (Neurontin -) 100 mg PO BID [facility] Last Admin: 04/13/19 11:21 Dose: 100 mg Insulin Aspart (Novolog Vial Sliding Scale -) 1 vial SQ HS [facility]; Protocol Insulin Aspart (Novolog Vial Sliding Scale -) 1 vial SQ TIDAC [facility]; Protocol Last Admin: 04/13/19 11:30 Dose: 2 unit Lidocaine (Lidoderm Patch -) 1 patch TP DAILY [facility] Last Admin: 04/13/19 11:23 Dose: 1 patch Melatonin (Melatonin) 10 mg PO HS [facility] Last Admin: 04/12/19 21:25 Dose: 10 mg Methadone HCl (Dolophine -) 2.5 mg PO TID [facility] Last Admin: 04/13/19 06:25 Dose: 2.5 mg Miscellaneous (Lidoderm Patch Removal) 1 each MC DAILY@2200 [facility] Morphine Sulfate (Morphine Sulfate) 4 mg IVPUSH Q4H PRN PRN Reason: PAIN LEVEL 6-10 Nifedipine (Procardia Xl -) 90 mg PO DAILY [facility] Last Admin: 04/13/19 11:21 Dose: 90 mg Petrolatum (Vaseline) 1 applic TP DAILY PRN PRN Reason: DRY SKIN Trazodone HCl 400 mg/ (Trazodone HCl 50 mg) 450 mg PO [facility] Vancomycin HCl (Vancomycin Oral Solution) 125 mg PO Q6HPO [facility] Last Admin: 04/13/19 12:30 Dose: 125 mg 63 year old gentleman with history of ESRD on HD ([facility]), DM, PVD s/p BKA who presented from home with non-healing foot wound. 1. ESRD on HD 2. Infected foot wound 3. Anemia of CKD 4. Pseudohyponatremia 5. Metabolic acidosis 6. Leukocytosis 7. PVD 8 DM type 2 on insulin no acute need for dialysis today, next treatment planned for tomorrow follow up Vancomycin levels, redose after dialysis Vascular and podiatry follow up will maintain on [facility] HD schedule while inpatient. will give high dose ADRIAN with HD, PRBC transfusion if Hgb < 7 Thank you Miguel Jansen DO
--- NOTE | 2019-04-13 14:12 | PN ---
Teaching Attending Note Name of Resident: Srini Adame ATTENDING PHYSICIAN STATEMENT I saw and evaluated the patient. I reviewed the resident's note and discussed the case with the resident. I agree with the resident's findings and plan as documented. SUBJECTIVE: Complains of ongoing pain RLE s/p guillotine amputation 04/10/19. No fever/chills. OBJECTIVE: Afebrile, Hemodynamically Stable Last Vital Signs Temp Pulse Resp BP Pulse Ox 98.2 F 76 20 138/79 96 04/13/19 06:04 04/13/19 06:04 04/13/19 06:04 04/13/19 06:04 04/12/19 21:00 Heart - S1, S2, RRR Chest - clear to auscultation Abdomen - Soft, non-tender. Bowel Sounds normal Extremities - LLE BKA, RLE in knee immobilizer and surgical site dressed. Neuro - AAO x 3. Moving all extremities. R and L BKA. Laboratory Results - last 24 hr 04/07/19 04/12/19 04/12/19 21:00 16:30 21:59 WBC RBC Hgb Hct MCV MCH MCHC RDW Plt Count MPV Sodium Potassium Chloride Carbon Dioxide Anion Gap BUN Creatinine Est GFR (CKD-EPI)AfAm Est GFR (CKD-EPI)NonAf POC Glucometer 188 165 Random Glucose Calcium Phosphorus Magnesium Random Vancomycin Blood Type B POSITIVE Antibody Screen Negative Crossmatch See Detail Crossmatch IS Only See Detail 04/13/19 04/13/19 04/13/19 06:35 07:35 07:35 WBC 13.3 H RBC 3.16 L Hgb 8.8 L Hct 28.0 L MCV 88.4 MCH 27.9 MCHC 31.5 L RDW 17.1 H Plt Count 286 D MPV 9.0 Sodium Potassium Chloride Carbon Dioxide Anion Gap BUN Creatinine Est GFR (CKD-EPI)AfAm Est GFR (CKD-EPI)NonAf POC Glucometer 192 Random Glucose Calcium Phosphorus Magnesium Random Vancomycin 19.3 Blood Type Antibody Screen Crossmatch Crossmatch IS Only 04/13/19 04/13/19 07:35 11:30 WBC RBC Hgb Hct MCV MCH MCHC RDW Plt Count MPV Sodium 137 Potassium 4.2 Chloride 99 Carbon Dioxide 30 Anion Gap 8 BUN 33.0 H Creatinine 4.8 H Est GFR (CKD-EPI)AfAm 13.87 Est GFR (CKD-EPI)NonAf 11.97 POC Glucometer 192 Random Glucose 193 H Calcium 7.3 L Phosphorus 4.1 Magnesium 2.0 Random Vancomycin Blood Type Antibody Screen Crossmatch Crossmatch IS Only Current Medications Generic Name Dose Route Start Last Admin Trade Name Freq PRN Reason Stop Dose Admin Acetaminophen 1,000 mg 04/13/19 02:15 Ofirmev Injection - IVPB Q6H PRN PAIN LEVEL 1-5 Albuterol Sulfate 1 amp 04/13/19 02:15 Ventolin 0.083% Nebulizer Soln - NEB Q4H PRN SHORT OF BREATH/WHEEZING Calcium Acetate 667 mg 04/12/19 08:00 04/13/19 11:20 Phoslo - PO 667 mg TIDCM IGGY Administration Doxazosin Mesylate 4 mg 04/13/19 10:00 04/13/19 11:22 Cardura - PO 4 mg DAILY IGGY Administration Epoetin Joe 20,000 unit 04/14/19 06:00 Epogen - IVPUSH 04/14/19 06:01 ONCE ONE Fluticasone Propionate 1 spray 04/13/19 10:00 04/13/19 11:22 Flonase - NS 1 spray DAILY IGGY Administration Gabapentin 100 mg 04/13/19 10:00 04/13/19 11:21 Neurontin - PO 100 mg BID IGGY Administration Sodium Chloride 250 mls @ 3,000 mls/hr 04/13/19 12:44 Normal Saline - IV 04/14/19 12:44 PRN PRN Hypotension during Dialysis Insulin Aspart 1 vial 04/13/19 22:00 Novolog Vial Sliding Scale - SQ HS IGGY Protocol Insulin Aspart 1 vial 04/13/19 07:00 04/13/19 11:30 Novolog Vial Sliding Scale - SQ 2 unit TIDAC IGGY Administration Protocol Lidocaine 1 patch 04/13/19 10:00 04/13/19 11:23 Lidoderm Patch - TP 1 patch DAILY IGGY Administration Melatonin 10 mg 04/12/19 22:00 04/12/19 21:25 Melatonin PO 10 mg HS IGGY Administration Methadone HCl 2.5 mg 04/13/19 06:00 04/13/19 06:25 Dolophine - PO 2.5 mg TID IGGY Administration Miscellaneous 1 each 04/13/19 22:00 Lidoderm Patch Removal MC DAILY@2200 IGGY Morphine Sulfate 4 mg 04/13/19 11:15 Morphine Sulfate IVPUSH Q4H PRN PAIN LEVEL 6-10 Nifedipine 90 mg 04/13/19 10:00 04/13/19 11:21 Procardia Xl - PO 90 mg DAILY [facility] Administration Petrolatum 1 applic 04/13/19 02:15 Vaseline TP DAILY PRN DRY SKIN Trazodone HCl 400 mg/ 450 mg 04/13/19 22:00 Trazodone HCl 50 mg PO [facility] Vancomycin HCl 125 mg 04/13/19 06:00 04/13/19 12:30 Vancomycin Oral Solution PO 125 mg Q6HPO [facility] Administration Home Medications Medication Instructions Recorded Albuterol 0.083% Nebulizer Coretta 1 amp NEB Q4H PRN #120 amp 08/23/17 [Ventolin 0.083% Nebulizer Soln -] Fluticasone Prop 0.05% Nasal 1 - 2 spray NS DAILY #1 spray.pump 08/23/17 [Flonase -] Doxazosin Mesylate [Cardura -] 4 mg PO DAILY tablet 10/06/17 Gabapentin [Neurontin -] 100 mg PO BID capsule 10/06/17 Insulin Sliding Scale [Novolog 1 vial SQ ACHS units 10/06/17 Vial Sliding Scale -] Lidocaine 5% Patch [Lidoderm -] 1 patch TP DAILY patch 10/06/17 Lidocaine Patch Removal [Lidoderm 1 each MC DAILY@2200 each 10/06/17 Patch Removal] Insulin (Levemir) [Levemir Vial] 12 unit SQ DAILY@0700 04/07/19 Nifedipine ER [Procardia XL -] 90 mg PO DAILY 04/07/19 traZODone HCL [Desyrel -] 450 mg PO HS 04/07/19 Microbiology 04/09/19 10:20 Blood - Peripheral Venous Blood Culture - Preliminary NO GROWTH OBTAINED AFTER 96 HOURS, INCUBATION TO CONTINUE FOR 1 DAYS. 04/09/19 10:42 Blood - Peripheral Venous Blood Culture - Preliminary NO GROWTH OBTAINED AFTER 96 HOURS, INCUBATION TO CONTINUE FOR 1 DAYS. 04/09/19 12:15 Foot - Rt Transmetatarsal Amp. Site Gram Stain - Final 04/09/19 12:15 Foot - Rt Transmetatarsal Amp. Site Wound Culture - Final Enterococcus Faecalis Mr S Aureus Morganella Morganii 04/07/19 18:00 Bone Gram Stain - Final 04/07/19 18:00 Bone Tissue Culture - Final Morganella Morganii Proteus Vulgaris Enterococcus Faecalis Mr S Aureus Alpha Hemolytic Streptococcus 04/07/19 18:00 Bone Anaerobic Culture - Final 04/07/19 17:30 Foot - Rt Transmetatarsal Amp. Site Gram Stain - Final 04/07/19 17:30 Foot - Rt Transmetatarsal Amp. Site Wound Culture - Final Morganella Morganii Enterococcus Faecalis Mr S Aureus Proteus Vulgaris 04/06/19 17:45 Foot - Right Gram Stain - Final 04/06/19 17:45 Foot - Right Wound Culture - Final Proteus Vulgaris Mr S Aureus Enterococcus Faecalis 04/08/19 16:10 Stool Clostridioides difficile Antigen - Final 04/08/19 16:10 Stool Clostridioides difficile Toxin Assay - Final 04/06/19 17:15 Blood - Peripheral Venous Blood Culture - Final Presumptive Mrsa (Pbp2a Pos) Streptococcus Mitis 04/06/19 17:45 Blood - Peripheral Venous Blood Culture - Final Mr Adkins Aureus ASSESSMENT/PLAN: 63 year old male with PMhx of ESRD on HD (TTS), IDDM, HTN, PVD s/p L BKA, Diabetic neuropathy, prior h/o MRSA bacteremia 09/2017 suspected from HD catheter , Right IJ thrombus in 09/2017 (suspected catheter related) admitted with progressive non-healing right foot swelling, redness, foul smelling discharge, chills. Right foot xray: soft tissue swelling with soft tissue emphysematous changes, deformities consistent with osteomyelitis noted 1. Sepsis secondary to R Foot Osteomyelitis/Cellulitis/Necrotizing fasciitis with Bacteremia POD 3 s/p guillotine amputation - BKA. reporting ongoing pain. IV opiates as per surgical team. POD 6 s/p initial transmetatarsal amputation. which was unsuccessful in curbing the infection, necessitating BKA. MRSA/Strep mitis Bacteremia - source ?foot versus AVF Wound/Surgical/Bone Cx - polymicrobial as above. Blood Cx - Strep mitis/MRSA, repeat BCx negative Fever resolved, significant leukocytosis, also resolving WBC 28.1 ---> 13.3 TTE no evidence of vegetations - no indication for CHAKA as per Cardiology. Will defer to ID/Cardio re: optimal Ix for exclude endocarditis. Previously on IV Zosyn/Vanco. Continue IV Vancomycin for 2 weeks as per ID ( dose to be given after HD). Plans to return to OR this week for revision of amputation and flap closure. 2. ESRD on HD TTS via UE AVF No signs of infection at fistula site On Vancomycin Repeat Blood Cx negative Further Abx titration by ID. 3. DM 2 - uncontrolled, A1C 10.8. Hyperglycemia sec to infection/poor compliance Maintain on Novolog sliding scale. Levemir held. 4. HTN - Continue Nifedipine, Doxazosin 5. ESRD on HD TTS - Nephrology following. 6. Normocytic Anemia likely sec to ESRD - EPO as per Nephrology. H/H 8.8/ s/ p fracisco-op transfusion of 2 units PRBCs 7. Chronic Pain Syndrome - Methadone held currently in favor of IV opiate analgesic meds. Pain Management consulted for further pain control post-op in light of Methadone use, awaiting evaluation. 8. Cdiff Ag positive/Toxin negative - started on Vanomycin PO. No diarrhea since yesterday. ID following. DVT Px - Heparin SQ
--- NOTE | 2019-04-13 14:43 | PN ---
Progress Note (short form) - Note Progress Note: No new complaints' Still with pain Rt leg s/p surgery apetite still poor Vital Signs Period Temp Pulse Resp BP Sys/Gutierrez Pulse Ox Last 24 Hr 97.5 F-98.2 F 71-84 13-23 111-138/68-79 96 PE: AOx3 Neck: Supple, NO JVD HEENT: EOM Lungs: CTA CVS; S1s2 Abd: Benign Ext: Left BKA, Rt leg surgery site dressing Neuro: No focal deficit CMP Sodium 137 mmol/L (136-145) 04/13/19 07:35 Potassium 4.2 mmol/L (3.5-5.1) 04/13/19 07:35 Chloride 99 mmol/L (98-107) 04/13/19 07:35 Carbon Dioxide 30 mmol/L (21-32) 04/13/19 07:35 Anion Gap 8 MMOL/L (8-16) 04/13/19 07:35 BUN 33.0 mg/dL (7-18) H 04/13/19 07:35 Creatinine 4.8 mg/dL (0.55-1.3) H 04/13/19 07:35 Est GFR (CKD-EPI)AfAm 13.87 04/13/19 07:35 Est GFR (CKD-EPI)NonAf 11.97 04/13/19 07:35 POC Glucometer 192 UNITS (80-120) 04/13/19 11:30 Random Glucose 193 mg/dL (74-106) H 04/13/19 07:35 Hemoglobin A1c % 10.8 % (4.2-6.3) H 04/07/19 11:15 Lactic Acid 0.9 mmol/L (0.4-2.0) 04/06/19 23:00 Calcium 7.3 mg/dL (8.5-10.1) L 04/13/19 07:35 Phosphorus 4.1 mg/dL (2.5-4.9) 04/13/19 07:35 Magnesium 2.0 mg/dL (1.8-2.4) 04/13/19 07:35 Iron 21 ug/dL (50-175) L 04/09/19 09:30 TIBC 70 ug/dL (250-450) L 04/09/19 09:30 Iron Saturation 30 % (17.5-39) 04/09/19 09:30 Unsaturated IBC 49 ug/dL (200-275) L 04/09/19 09:30 Ferritin 1970.5 ng/ml (8-388) H 04/09/19 09:30 Total Bilirubin 0.4 mg/dL (0.2-1) 04/12/19 09:30 AST 9 U/L (15-37) L 04/12/19 09:30 ALT 8 U/L (13-61) L 04/12/19 09:30 Alkaline Phosphatase 151 U/L (45-117) H 04/12/19 09:30 Creatine Kinase 26 U/L (26-308) 04/06/19 23:00 Troponin I < 0.02 ng/ml (0.00-0.05) 04/06/19 23:00 C-Reactive Protein 22.3 MG/DL (0.00-0.3) H 04/07/19 11:15 Total Protein 5.2 g/dl (6.4-8.2) L 04/12/19 09:30 Albumin 1.4 g/dl (3.4-5.0) L 04/12/19 09:30 Vitamin B12 1212 pg/ml (193-986) H 04/09/19 09:30 Serum Folate 13 ng/mL (3.1-17.5) 04/09/19 09:30 Current Medications Generic Name Dose Route Start Last Admin Trade Name Freq PRN Reason Stop Dose Admin Acetaminophen 1,000 mg 04/13/19 02:15 Ofirmev Injection - IVPB Q6H PRN PAIN LEVEL 1-5 Albuterol Sulfate 1 amp 04/13/19 02:15 Ventolin 0.083% Nebulizer Soln - NEB Q4H PRN SHORT OF BREATH/WHEEZING Calcium Acetate 667 mg 04/12/19 08:00 04/13/19 11:20 Phoslo - PO 667 mg TIDCM IGGY Administration Doxazosin Mesylate 4 mg 04/13/19 10:00 04/13/19 11:22 Cardura - PO 4 mg DAILY IGGY Administration Epoetin Joe 20,000 unit 04/14/19 06:00 Epogen - IVPUSH 04/14/19 06:01 ONCE ONE Fluticasone Propionate 1 spray 04/13/19 10:00 04/13/19 11:22 Flonase - NS 1 spray DAILY IGGY Administration Gabapentin 100 mg 04/13/19 10:00 04/13/19 11:21 Neurontin - PO 100 mg BID IGGY Administration Sodium Chloride 250 mls @ 3,000 mls/hr 04/13/19 12:44 Normal Saline - IV 04/14/19 12:44 PRN PRN Hypotension during Dialysis Insulin Aspart 1 vial 04/13/19 22:00 Novolog Vial Sliding Scale - SQ HS IGGY Protocol Insulin Aspart 1 vial 04/13/19 07:00 04/13/19 11:30 Novolog Vial Sliding Scale - SQ 2 unit TIDAC IGGY Administration Protocol Lidocaine 1 patch 04/13/19 10:00 04/13/19 11:23 Lidoderm Patch - TP 1 patch DAILY IGGY Administration Melatonin 10 mg 04/12/19 22:00 04/12/19 21:25 Melatonin PO 10 mg HS IGGY Administration Methadone HCl 2.5 mg 04/13/19 06:00 04/13/19 06:25 Dolophine - PO 2.5 mg TID IGGY Administration Miscellaneous 1 each 04/13/19 22:00 Lidoderm Patch Removal MC DAILY@2200 IGGY Morphine Sulfate 4 mg 04/13/19 11:15 Morphine Sulfate IVPUSH Q4H PRN PAIN LEVEL 6-10 Nifedipine 90 mg 04/13/19 10:00 04/13/19 11:21 Procardia Xl - PO 90 mg DAILY IGGY Administration Petrolatum 1 applic 04/13/19 02:15 Vaseline TP DAILY PRN DRY SKIN Trazodone HCl 400 mg/ 450 mg 04/13/19 22:00 Trazodone HCl 50 mg PO HS IGGY Vancomycin HCl 125 mg 04/13/19 06:00 04/13/19 12:30 Vancomycin Oral Solution PO 125 mg Q6HPO IGGY Administration AP: Right foot Infection/Metatarsal osteomyelitis: S/P Rt BKA S/P Transmetatarsal amputation: Sepsis ESRD on HD DM Uncontrolled: A1c 10.3/Episode of hypoglycemia asymptomatic HTN PVD S/P Left BKA H/O MRSA bacteremia 09/2017 suspected from HD catheter H.O Right IJ thrombus in 09/2017 (suspected catheter related) BGM QACHS and 3 PM Monitor blood sugar closely as pts with CKD tend to be very sensitive to Insulin and develop hypoglycemia frequently Continue to hold Levemir for now, Pt has poor apetite Novolog SS coverage Will F/u
--- NOTE | 2019-04-13 14:54 | PN ---
Physical Exam: SUBJECTIVE: Patient seen and examined at the bedside. Patient stated that he continues to have pain but overall feels better. Denies cp, sob, abd pain, n/v/c /d, fever, chills, dizziness, lightheadedness. OBJECTIVE: Vital Signs Period Temp Pulse Resp BP Sys/Gutierrez Pulse Ox Last 24 Hr 97.5 F-98.2 F 71-84 13-23 111-138/68-79 96 GENERAL: The patient is awake, alert, and fully oriented, in mild acute distress. HEAD: Normal with no signs of trauma. EYES: PERRL, extraocular movements intact, sclera anicteric, conjunctiva clear. ENT: Oropharynx clear without exudates, moist mucous membranes. NECK: Trachea midline, full range of motion, supple. LUNGS: Breath sounds equal, clear to auscultation bilaterally, no wheezes, no crackles, no accessory muscle use. HEART: Regular rate and rhythm, S1, S2 without murmur, rubs. ABDOMEN: Soft, nontender, nondistended, normoactive bowel sounds, no guarding, no rebound, no masses. EXTREMITIES: Amputation L BKA and R BKA. Dressings dry on R side and in immobilizer. NEUROLOGICAL: Cranial nerves II through XII grossly intact. 5/5 muscle strength upper and lower extremities, bilaterally. L and R BKA. PSYCH: Mildly depressed, upset about pain. Laboratory Results - last 24 hr 04/07/19 04/12/19 04/12/19 21:00 16:30 21:59 WBC RBC Hgb Hct MCV MCH MCHC RDW Plt Count MPV Sodium Potassium Chloride Carbon Dioxide Anion Gap BUN Creatinine Est GFR (CKD-EPI)AfAm Est GFR (CKD-EPI)NonAf POC Glucometer 188 165 Random Glucose Calcium Phosphorus Magnesium Random Vancomycin Blood Type B POSITIVE Antibody Screen Negative Crossmatch See Detail Crossmatch IS Only See Detail 04/13/19 04/13/19 04/13/19 06:35 07:35 07:35 WBC 13.3 H RBC 3.16 L Hgb 8.8 L Hct 28.0 L MCV 88.4 MCH 27.9 MCHC 31.5 L RDW 17.1 H Plt Count 286 D MPV 9.0 Sodium Potassium Chloride Carbon Dioxide Anion Gap BUN Creatinine Est GFR (CKD-EPI)AfAm Est GFR (CKD-EPI)NonAf POC Glucometer 192 Random Glucose Calcium Phosphorus Magnesium Random Vancomycin 19.3 Blood Type Antibody Screen Crossmatch Crossmatch IS Only 04/13/19 04/13/19 07:35 11:30 WBC RBC Hgb Hct MCV MCH MCHC RDW Plt Count MPV Sodium 137 Potassium 4.2 Chloride 99 Carbon Dioxide 30 Anion Gap 8 BUN 33.0 H Creatinine 4.8 H Est GFR (CKD-EPI)AfAm 13.87 Est GFR (CKD-EPI)NonAf 11.97 POC Glucometer 192 Random Glucose 193 H Calcium 7.3 L Phosphorus 4.1 Magnesium 2.0 Random Vancomycin Blood Type Antibody Screen Crossmatch Crossmatch IS Only Active Medications Generic Name Dose Route Start Last Admin Trade Name Freq PRN Reason Stop Dose Admin Acetaminophen 1,000 mg 04/13/19 02:15 Ofirmev Injection - IVPB Q6H PRN PAIN LEVEL 1-5 Albuterol Sulfate 1 amp 04/13/19 02:15 Ventolin 0.083% Nebulizer Soln - NEB Q4H PRN SHORT OF BREATH/WHEEZING Calcium Acetate 667 mg 04/12/19 08:00 04/13/19 11:20 Phoslo - PO 667 mg TIDCM IGGY Administration Doxazosin Mesylate 4 mg 04/13/19 10:00 04/13/19 11:22 Cardura - PO 4 mg DAILY IGGY Administration Epoetin Joe 20,000 unit 04/14/19 06:00 Epogen - IVPUSH 04/14/19 06:01 ONCE ONE Fluticasone Propionate 1 spray 04/13/19 10:00 04/13/19 11:22 Flonase - NS 1 spray DAILY IGGY Administration Gabapentin 100 mg 04/13/19 10:00 04/13/19 11:21 Neurontin - PO 100 mg BID IGGY Administration Sodium Chloride 250 mls @ 3,000 mls/hr 04/13/19 12:44 Normal Saline - IV 04/14/19 12:44 PRN PRN Hypotension during Dialysis Insulin Aspart 1 vial 04/13/19 22:00 Novolog Vial Sliding Scale - SQ HS IGGY Protocol Insulin Aspart 1 vial 04/13/19 07:00 04/13/19 11:30 Novolog Vial Sliding Scale - SQ 2 unit TIDAC IGGY Administration Protocol Lidocaine 1 patch 04/13/19 10:00 04/13/19 11:23 Lidoderm Patch - TP 1 patch DAILY IGGY Administration Melatonin 10 mg 04/12/19 22:00 04/12/19 21:25 Melatonin PO 10 mg HS IGGY Administration Methadone HCl 2.5 mg 04/13/19 06:00 04/13/19 06:25 Dolophine - PO 2.5 mg TID IGGY Administration Miscellaneous 1 each 04/13/19 22:00 Lidoderm Patch Removal MC DAILY@2200 [facility] Morphine Sulfate 4 mg 04/13/19 11:15 Morphine Sulfate IVPUSH Q4H PRN PAIN LEVEL 6-10 Nifedipine 90 mg 04/13/19 10:00 04/13/19 11:21 Procardia Xl - PO 90 mg DAILY IGGY Administration Petrolatum 1 applic 04/13/19 02:15 Vaseline TP DAILY PRN DRY SKIN Trazodone HCl 400 mg/ 450 mg 04/13/19 22:00 Trazodone HCl 50 mg PO HS IGGY Vancomycin HCl 125 mg 04/13/19 06:00 04/13/19 12:30 Vancomycin Oral Solution PO 125 mg Q6HPO IGGY Administration Microbiology 04/09/19 10:20 Blood - Peripheral Venous Blood Culture - Preliminary NO GROWTH OBTAINED AFTER 96 HOURS, INCUBATION TO CONTINUE FOR 1 DAYS. 04/09/19 10:42 Blood - Peripheral Venous Blood Culture - Preliminary NO GROWTH OBTAINED AFTER 96 HOURS, INCUBATION TO CONTINUE FOR 1 DAYS. 04/09/19 12:15 Foot - Rt Transmetatarsal Amp. Site Gram Stain - Final 04/09/19 12:15 Foot - Rt Transmetatarsal Amp. Site Wound Culture - Final Enterococcus Faecalis Mr S Aureus Morganella Morganii 04/07/19 18:00 Bone Gram Stain - Final 04/07/19 18:00 Bone Tissue Culture - Final Morganella Morganii Proteus Vulgaris Enterococcus Faecalis Mr S Aureus Alpha Hemolytic Streptococcus 04/07/19 18:00 Bone Anaerobic Culture - Final 04/07/19 17:30 Foot - Rt Transmetatarsal Amp. Site Gram Stain - Final 04/07/19 17:30 Foot - Rt Transmetatarsal Amp. Site Wound Culture - Final Morganella Morganii Enterococcus Faecalis Mr S Aureus Proteus Vulgaris 04/06/19 17:45 Foot - Right Gram Stain - Final 04/06/19 17:45 Foot - Right Wound Culture - Final Proteus Vulgaris Mr S Aureus Enterococcus Faecalis 04/08/19 16:10 Stool Clostridioides difficile Antigen - Final 04/08/19 16:10 Stool Clostridioides difficile Toxin Assay - Final 04/06/19 17:15 Blood - Peripheral Venous Blood Culture - Final Presumptive Mrsa (Pbp2a Pos) Streptococcus Mitis 04/06/19 17:45 Blood - Peripheral Venous Blood Culture - Final Mr S Aureus ASSESSMENT/PLAN: Luciano Judge is a 61 year old male with a past medical history of DM, HTN, ESRD on dialysis (TThS), left BKA, diabetic neuropathy, hx of MRSA bacteremia presenting for a sepsis from likely osteomyelitis of R foot. Sepsis from Osteomyelitis - elevated WBC and febrile 100.4, has been afebrile - foot x-ray with emphysematous changes, deformity, lucency, destructive changes of the distal head of third metatarsal, metatarsal head, base of R third proximal phalynx consistent with osteomyelitis - ID consulted, Vancomycin, random vanco levels to guide treatment, will need total 2 weeks of vancomycin - follow random vanco level to redose - will need to restart Zosyn on 04/15/19, the day prior to repeat OR procedure with vascular surgery - bacteremia with blood culture growing MRSA, repeat blood cultures negative - wound culture as above, continue to follow - pathology results showing that bone margins are not clear, osteo involvement - seen by podiatry and has undergone TMA and subsequent BKA guillotine, will undergo closure later in the week with vascular - POD day #3 R BKA - echo ordered to evaluate for ?endocarditis, showing normal LV function, size, function, normal EF, ?poor LV compliance, borderline aortic root dilation, trace mitral regurg, mild pericardial effusion, no evidence of vegetation, further workup as per ID - hyperbaric consult as per podiatry - physical therapy ESRD - dialysis TThS schedule - avoid fluid overload - nephrology consulted, recs appreciated Diarrhea secondary to likely c diff - positive for c diff antigen - continue oral vancomycin 125mg q6h day 3 HTN - continue home meds - cardio consulted, recs appreciated DM - hold Levemir 12 units qAM, due to hypoglycemic episode, may resume if glucose levels stabilize or rise - ISS - BGM - A1c 10.8 - will require tight insulin dosing in the setting of osteomyelitis - endocrinology consulted, recs appreciated Anemia - likely in setting of chronic renal disease - iron studies showing anemia of chronic disease - given Epogen during dialysis - continue to monitor H/H - 2 units of PRBCs given Shoulder pain/chronic pain - methadone 2.5mg tid, confirmed with [facility] and confirmed with patient's pharmacy [facility], last ordered and dispensed on 03/13 for a 30 day course, held currently in favor of morphine for pain control s/p BKA - morphine 4mg q4h prn - methadone increased to 5mg tid as per Dr. Carlos - gabapentin 300mg tid - lidocaine patch - pain management consulted Hx of PTSD - trazodone 450mg qhs Prophylaxis - heparin 5000 units subq bid FEN - no IVF, avoid fluid overload - continue to monitor electrolytes and replete as necessary - renal diet Dispo - stable for transfer to [facility]-surg Visit type - Emergency Visit Emergency Visit: Yes ED Registration Date: 04/06/19 Care time: The patient presented to the Emergency Department on the above date and was hospitalized for further evaluation of their emergent condition. - New Patient This patient is new to me today: No - Critical Care Critical Care patient: No
[2019-04-13] MEDS: GABAPENTIN 300 MG CAPSULE (FP) PO SCH ×2 (17:14→21:50)
[2019-04-13] MEDS: AMINO ACIDS/PROTEIN HYDROLYS 30 ML LIQUID.PKT PO SCH (17:14)
[2019-04-13] MEDS ORDERED: PT OWN MED DRAWER 7, Y5N ONE (17:17)
[2019-04-13] MEDS: TRAZODONE HCL PO SCH (21:49)
[2019-04-13] MEDS: METHADONE HCL 5 MG TABLET PO SCH (21:49)
[2019-04-13] MEDS: LIDOCAINE PATCH REMOVAL MC SCH (21:50)
[2019-04-13] MEDS: MELATONIN 5 MG TABLETS PO SCH (21:50)
[2019-04-13] MEDS ORDERED: CHLORHEXIDINE GLUCONATE 4% CLEANSER FOR DECOLONIZATION TP SCH (22:00)
[2019-04-14] MEDS: METHADONE HCL 5 MG TABLET PO SCH ×3 (06:30→21:57)
[2019-04-14] MEDS: INSULIN SLIDING SCALE (NOVOLOG) 1 VIAL SQ SCH ×4 (06:30→21:58)
[2019-04-14] MEDS: GABAPENTIN 300 MG CAPSULE (FP) PO SCH ×3 (06:30→21:58)
[2019-04-14] MEDS: VANCOMYCIN 250 MG/5 ML ORAL SOLUTION PO SCH ×3 (06:30→17:01)
[2019-04-14] MEDS: morphine SULFATE 4 MG/ML VIAL IVPUSH PRN ×2 (06:31→19:27)
[2019-04-14] MEDS ORDERED: SODIUM CHLORIDE 250 ML IV PRN (09:07)
[2019-04-14] MEDS ORDERED: EPOETIN ALFA 20,000 UNIT/1 ML VIAL IVPUSH ONE (09:15)
[2019-04-14] MEDS: LIDOCAINE 5% TOPICAL PATCH TP SCH (10:00)
--- NOTE | 2019-04-14 10:47 | PN ---
Physical Exam: SUBJECTIVE: Patient seen and examined at the bedside. Patient states that he feels better and that his pain is better controlled. Noted that he was in better spirits and has a better appetite. Denied cp, sob, abd pain, n/v/c/d, fever, chills, headaches, dizziness, lightheadedness. OBJECTIVE: Vital Signs Period Temp Pulse Resp BP Sys/Gutierrez Pulse Ox Last 24 Hr 97.7 F-98.7 F 73-90 18-20 98-130/63-87 96 GENERAL: The patient is awake, alert, and fully oriented, in no acute distress. HEAD: Normal with no signs of trauma. EYES: PERRL, extraocular movements intact, sclera anicteric, conjunctiva clear. ENT: Oropharynx clear without exudates, moist mucous membranes. NECK: Trachea midline, full range of motion, supple. LUNGS: Breath sounds equal, clear to auscultation bilaterally, no wheezes, no crackles, no accessory muscle use. HEART: Regular rate and rhythm, S1, S2 without murmur, rubs. ABDOMEN: Soft, nontender, nondistended, normoactive bowel sounds, no guarding, no rebound, no masses. EXTREMITIES: Amputation L BKA and R BKA. Dressings dry on R side and in immobilizer. NEUROLOGICAL: Cranial nerves II through XII grossly intact. 5/5 muscle strength upper and lower extremities, bilaterally. L and R BKA. PSYCH: In better spirits today. Laboratory Results - last 24 hr 04/07/19 04/10/19 04/13/19 21:00 22:00 11:30 POC Glucometer 192 Blood Type B POSITIVE B POSITIVE Antibody Screen Negative Negative Crossmatch See Detail See Detail Crossmatch IS Only See Detail 04/13/19 04/13/19 04/14/19 17:13 21:46 06:27 POC Glucometer 295 277 207 Blood Type Antibody Screen Crossmatch Crossmatch IS Only Active Medications Generic Name Dose Route Start Last Admin Trade Name Freq PRN Reason Stop Dose Admin Acetaminophen 1,000 mg 04/13/19 02:15 Ofirmev Injection - IVPB Q6H PRN PAIN LEVEL 1-5 Albuterol Sulfate 1 amp 04/13/19 02:15 Ventolin 0.083% Nebulizer Soln - NEB Q4H PRN SHORT OF BREATH/WHEEZING Amino Acids 30 ml 04/13/19 17:30 04/13/19 17:14 Prosource No Carb Liquid Pkt PO 30 ml BID@0800,1730 IGGY Administration Calcium Acetate 667 mg 04/12/19 08:00 04/13/19 17:14 Phoslo - PO 667 mg TIDCM IGGY Administration Doxazosin Mesylate 4 mg 04/13/19 10:00 04/13/19 11:22 Cardura - PO 4 mg DAILY IGGY Administration Fluticasone Propionate 1 spray 04/13/19 10:00 04/13/19 11:22 Flonase - NS 1 spray DAILY IGGY Administration Gabapentin 300 mg 04/13/19 16:00 04/14/19 06:30 Neurontin - PO 300 mg TID IGGY Administration Piperacillin Sod/Tazobactam 50 mls @ 100 mls/hr 04/15/19 10:00 Sod 2.25 gm/ Dextrose IVPB BID IGGY Protocol Insulin Aspart 1 vial 04/13/19 22:00 04/13/19 21:50 Novolog Vial Sliding Scale - SQ 3 units HS IGGY Administration Protocol Insulin Aspart 1 vial 04/13/19 07:00 04/14/19 06:30 Novolog Vial Sliding Scale - SQ 3 unit TIDAC IGGY Administration Protocol Lidocaine 1 patch 04/13/19 10:00 04/13/19 11:23 Lidoderm Patch - TP 1 patch DAILY IGGY Administration Melatonin 10 mg 04/12/19 22:00 04/13/19 21:50 Melatonin PO 10 mg HS IGGY Administration Methadone HCl 5 mg 04/13/19 15:53 04/14/19 06:30 Dolophine - PO 5 mg TID IGGY Administration Miscellaneous 1 each 04/13/19 22:00 04/13/19 21:50 Lidoderm Patch Removal MC 1 each DAILY@2200 IGGY Administration Morphine Sulfate 4 mg 04/13/19 11:15 04/14/19 06:31 Morphine Sulfate IVPUSH 4 mg Q4H PRN Administration PAIN LEVEL 6-10 Multivit/Ca Carb/B Cmplx/FA/Prenat 1 tablet 04/14/19 10:00 Nephro-Guilherme - PO DAILY IGGY Nifedipine 90 mg 04/13/19 10:00 04/13/19 11:21 Procardia Xl - PO 90 mg DAILY IGGY Administration Petrolatum 1 applic 04/13/19 02:15 Vaseline TP DAILY PRN DRY SKIN Trazodone HCl 400 mg/ 450 mg 04/13/19 22:00 04/13/19 21:49 Trazodone HCl 50 mg PO 450 mg HS IGGY Administration Vancomycin HCl 125 mg 04/13/19 06:00 04/14/19 06:30 Vancomycin Oral Solution PO 125 mg Q6HPO IGGY Administration Microbiology 04/09/19 10:20 Blood - Peripheral Venous Blood Culture - Final NO GROWTH AFTER 5 DAYS INCUBATION 04/09/19 10:42 Blood - Peripheral Venous Blood Culture - Final NO GROWTH AFTER 5 DAYS INCUBATION 04/09/19 12:15 Foot - Rt Transmetatarsal Amp. Site Gram Stain - Final 04/09/19 12:15 Foot - Rt Transmetatarsal Amp. Site Wound Culture - Final Enterococcus Faecalis Mr S Aureus Morganella Morganii 04/07/19 18:00 Bone Gram Stain - Final 04/07/19 18:00 Bone Tissue Culture - Final Morganella Morganii Proteus Vulgaris Enterococcus Faecalis Mr S Aureus Alpha Hemolytic Streptococcus 04/07/19 18:00 Bone Anaerobic Culture - Final 04/07/19 17:30 Foot - Rt Transmetatarsal Amp. Site Gram Stain - Final 04/07/19 17:30 Foot - Rt Transmetatarsal Amp. Site Wound Culture - Final Morganella Morganii Enterococcus Faecalis Mr S Aureus Proteus Vulgaris 04/06/19 17:45 Foot - Right Gram Stain - Final 04/06/19 17:45 Foot - Right Wound Culture - Final Proteus Vulgaris Mr S Aureus Enterococcus Faecalis 04/08/19 16:10 Stool Clostridioides difficile Antigen - Final 04/08/19 16:10 Stool Clostridioides difficile Toxin Assay - Final 04/06/19 17:15 Blood - Peripheral Venous Blood Culture - Final Presumptive Mrsa (Pbp2a Pos) Streptococcus Mitis 04/06/19 17:45 Blood - Peripheral Venous Blood Culture - Final Mr S Aureus ASSESSMENT/PLAN: Luciano Judge is a 61 year old male with a past medical history of DM, HTN, ESRD on dialysis (TThS), left BKA, diabetic neuropathy, hx of MRSA bacteremia presenting for a sepsis from likely osteomyelitis of R foot. Sepsis from Osteomyelitis - elevated WBC and febrile 100.4, has been afebrile - foot x-ray with emphysematous changes, deformity, lucency, destructive changes of the distal head of third metatarsal, metatarsal head, base of R third proximal phalynx consistent with osteomyelitis - ID consulted, Vancomycin, random vanco levels to guide treatment, will need total 2 weeks of vancomycin - follow random vanco level to redose - will need to restart Zosyn on 04/15/19, the day prior to repeat OR procedure with vascular surgery - bacteremia with blood culture growing MRSA, repeat blood cultures negative - wound culture as above, continue to follow - pathology results showing that bone margins are not clear, osteo involvement - seen by podiatry and has undergone TMA and subsequent BKA guillotine, will undergo closure later in the week with vascular - POD day #4 R BKA - echo ordered to evaluate for ?endocarditis, showing normal LV function, size, function, normal EF, ?poor LV compliance, borderline aortic root dilation, trace mitral regurg, mild pericardial effusion, no evidence of vegetation, further workup as per ID - hyperbaric consult as per podiatry - physical therapy ESRD - dialysis TThS schedule - avoid fluid overload - nephrology consulted, recs appreciated Diarrhea secondary to likely c diff - positive for c diff antigen - continue oral vancomycin 125mg q6h day 4 HTN - continue home meds - cardio consulted, recs appreciated DM - hold Levemir 12 units qAM, due to hypoglycemic episode, may resume if glucose levels stabilize or rise - ISS - BGM - A1c 10.8 - will require tight insulin dosing in the setting of osteomyelitis - endocrinology consulted, recs appreciated Anemia - likely in setting of chronic renal disease - iron studies showing anemia of chronic disease - given Epogen during dialysis - continue to monitor H/H - 2 units of PRBCs given Shoulder pain/chronic pain - methadone 2.5mg tid, confirmed with [facility] and confirmed with patient's pharmacy [facility], last ordered and dispensed on 03/13 for a 30 day course, held currently in favor of morphine for pain control s/p BKA - morphine 4mg q4h prn - methadone increased to 5mg tid as per Dr. Carlos - gabapentin 300mg tid - lidocaine patch - pain management consulted Hx of PTSD - trazodone 450mg qhs Prophylaxis - heparin 5000 units subq bid FEN - no IVF, avoid fluid overload - continue to monitor electrolytes and replete as necessary - renal diet, with supplementation Dispo - stable for transfer to Med-surg Visit type - Emergency Visit Emergency Visit: Yes ED Registration Date: 04/06/19 Care time: The patient presented to the Emergency Department on the above date and was hospitalized for further evaluation of their emergent condition. - New Patient This patient is new to me today: No - Critical Care Critical Care patient: No
--- NOTE | 2019-04-14 11:07 | PN ---
Teaching Attending Note Name of Resident: Srini Adame ATTENDING PHYSICIAN STATEMENT I saw and evaluated the patient. I reviewed the resident's note and discussed the case with the resident. I agree with the resident's findings and plan as documented. SUBJECTIVE: Improvement in pain RLE s/p guillotine amputation 04/10/19. No fever /chills. No further diarrhea. OBJECTIVE: Afebrile, Hemodynamically Stable Last Vital Signs Temp Pulse Resp BP Pulse Ox 98.4 F 82 18 102/64 96 04/14/19 09:55 04/14/19 10:30 04/14/19 10:30 04/14/19 10:30 04/13/19 21:00 Heart - S1, S2, RRR Chest - clear to auscultation Abdomen - Soft, non-tender. Bowel Sounds normal Extremities - LLE BKA, RLE in knee immobilizer and surgical site dressed. Neuro - AAO x 3. Moving all extremities. R and L BKA. Laboratory Results - last 24 hr 04/07/19 04/10/19 04/13/19 21:00 22:00 11:30 POC Glucometer 192 Blood Type B POSITIVE B POSITIVE Antibody Screen Negative Negative Crossmatch See Detail See Detail Crossmatch IS Only See Detail 04/13/19 04/13/19 04/14/19 17:13 21:46 06:27 POC Glucometer 295 277 207 Blood Type Antibody Screen Crossmatch Crossmatch IS Only Current Medications Generic Name Dose Route Start Last Admin Trade Name Freq PRN Reason Stop Dose Admin Acetaminophen 1,000 mg 04/13/19 02:15 Ofirmev Injection - IVPB Q6H PRN PAIN LEVEL 1-5 Albuterol Sulfate 1 amp 04/13/19 02:15 Ventolin 0.083% Nebulizer Soln - NEB Q4H PRN SHORT OF BREATH/WHEEZING Amino Acids 30 ml 04/13/19 17:30 04/13/19 17:14 Prosource No Carb Liquid Pkt PO 30 ml BID@0800,1730 IGGY Administration Calcium Acetate 667 mg 04/12/19 08:00 04/13/19 17:14 Phoslo - PO 667 mg TIDCM IGGY Administration Doxazosin Mesylate 4 mg 04/13/19 10:00 04/13/19 11:22 Cardura - PO 4 mg DAILY IGGY Administration Fluticasone Propionate 1 spray 04/13/19 10:00 04/13/19 11:22 Flonase - NS 1 spray DAILY IGGY Administration Gabapentin 300 mg 04/13/19 16:00 04/14/19 06:30 Neurontin - PO 300 mg TID IGGY Administration Piperacillin Sod/Tazobactam 50 mls @ 100 mls/hr 04/15/19 10:00 Sod 2.25 gm/ Dextrose IVPB BID IGGY Protocol Insulin Aspart 1 vial 04/13/19 22:00 04/13/19 21:50 Novolog Vial Sliding Scale - SQ 3 units HS IGGY Administration Protocol Insulin Aspart 1 vial 04/13/19 07:00 04/14/19 06:30 Novolog Vial Sliding Scale - SQ 3 unit TIDAC IGGY Administration Protocol Lidocaine 1 patch 04/13/19 10:00 04/13/19 11:23 Lidoderm Patch - TP 1 patch DAILY IGGY Administration Melatonin 10 mg 04/12/19 22:00 04/13/19 21:50 Melatonin PO 10 mg HS IGGY Administration Methadone HCl 5 mg 04/13/19 15:53 04/14/19 06:30 Dolophine - PO 5 mg TID IGGY Administration Miscellaneous 1 each 04/13/19 22:00 04/13/19 21:50 Lidoderm Patch Removal MC 1 each DAILY@2200 IGGY Administration Morphine Sulfate 4 mg 04/13/19 11:15 04/14/19 06:31 Morphine Sulfate IVPUSH 4 mg Q4H PRN Administration PAIN LEVEL 6-10 Multivit/Ca Carb/B Cmplx/FA/Prenat 1 tablet 04/14/19 10:00 Nephro-Guilherme - PO DAILY IGGY Nifedipine 90 mg 04/13/19 10:00 04/13/19 11:21 Procardia Xl - PO 90 mg DAILY IGGY Administration Petrolatum 1 applic 04/13/19 02:15 Vaseline TP DAILY PRN DRY SKIN Trazodone HCl 400 mg/ 450 mg 04/13/19 22:00 04/13/19 21:49 Trazodone HCl 50 mg PO 450 mg HS IGGY Administration Vancomycin HCl 125 mg 04/13/19 06:00 04/14/19 06:30 Vancomycin Oral Solution PO 125 mg Q6HPO IGGY Administration Home Medications Medication Instructions Recorded Albuterol 0.083% Nebulizer Coretta 1 amp NEB Q4H PRN #120 amp 08/23/17 [Ventolin 0.083% Nebulizer Soln -] Fluticasone Prop 0.05% Nasal 1 - 2 spray NS DAILY #1 spray.pump 08/23/17 [Flonase -] Doxazosin Mesylate [Cardura -] 4 mg PO DAILY tablet 10/06/17 Gabapentin [Neurontin -] 100 mg PO BID capsule 10/06/17 Insulin Sliding Scale [Novolog 1 vial SQ ACHS units 10/06/17 Vial Sliding Scale -] Lidocaine 5% Patch [Lidoderm -] 1 patch TP DAILY patch 10/06/17 Lidocaine Patch Removal [Lidoderm 1 each MC DAILY@2200 each 10/06/17 Patch Removal] Insulin (Levemir) [Levemir Vial] 12 unit SQ DAILY@0700 04/07/19 Nifedipine ER [Procardia XL -] 90 mg PO DAILY 04/07/19 traZODone HCL [Desyrel -] 450 mg PO HS 04/07/19 ASSESSMENT/PLAN: 63 year old male with PMhx of ESRD on HD (TTS), IDDM, HTN, PVD s/p L BKA, Diabetic neuropathy, prior h/o MRSA bacteremia 09/2017 suspected from HD catheter , Right IJ thrombus in 09/2017 (suspected catheter related) admitted with progressive non-healing right foot swelling, redness, foul smelling discharge, chills. Right foot xray: soft tissue swelling with soft tissue emphysematous changes, deformities consistent with osteomyelitis noted 1. Sepsis secondary to R Foot Osteomyelitis/Cellulitis/Necrotizing fasciitis with Bacteremia POD 4 s/p guillotine amputation - BKA. MRSA/Strep mitis Bacteremia - source ?foot versus AVF Wound/Surgical/Bone Cx - polymicrobial as above. Blood Cx - Strep mitis/MRSA, repeat BCx negative Fever resolved, significant leukocytosis, improved, but still elevated. WBC 28.1 ---> 15.4 TTE no evidence of vegetations - no indication for CHAKA as per Cardiology. Will defer to ID/Cardio re: optimal Ix for exclude endocarditis. Previously on IV Zosyn/Vanco. Continue IV Vancomycin for 2 weeks as per ID ( dose to be given after HD). Plans to return to OR 04/16 for revision of amputation and flap closure. Jodie-op Zosyn as per ID. NPO MN 04/15 2. ESRD on HD TTS via UE AVF No signs of infection at fistula site On Vancomycin Repeat Blood Cx negative Further Abx titration by ID. 3. DM 2 - uncontrolled, A1C 10.8. Hyperglycemia sec to infection/poor compliance Maintain on Novolog sliding scale. Levemir held. 4. HTN - Continue Nifedipine, Doxazosin 5. ESRD on HD TTS - Nephrology following. 6. Normocytic Anemia likely sec to ESRD - EPO as per Nephrology. H/H 8.8 s/ p jodie-op transfusion of 2 units PRBCs 7. Chronic Pain Syndrome - discussed with pain management - Methadone dose increased to 5mg TID, along with increase in Gabapentin dose. 8. Cdiff Ag positive/Toxin negative - started on Vanomycin PO. ID following. DVT Px - Heparin SQ
[2019-04-14 11:09] LABS: HEMATOCRIT 26.2 % (35.4-49); HEMOGLOBIN 8.3 GM/dL (11.7-16.9); MCH 27.8 pg (25.7-33.7); MCHC 31.5 g/dl (32.0-35.9); MEAN CELL VOLUME 88.3 fl (80-96); MEAN PLT VOLUME 9.1 fl (7.5-11.1); PLATELET COUNT 336 K/MM3 (134-434); RBC 2.97 M/mm3 (4.00-5.60); RDW 16.2 % (11.9-15.9); WHITE BLOOD COUNT 15.4 K/mm3 (4.0-10.0)
--- NOTE | 2019-04-14 11:17 | PN ---
Progress Note, Physician Chief Complaint: Events noted Being dialyzed this AM History of Present Illness: Patient was seen and examined. Awake and alert. Chart was reviewed Denies chest pain, SOB or palpitations S/P right LE BKA - Current Medication List Current Medications: Active Medications Acetaminophen (Ofirmev Injection -) 1,000 mg IVPB Q6H PRN PRN Reason: PAIN LEVEL 1-5 Albuterol Sulfate (Ventolin 0.083% Nebulizer Soln -) 1 amp NEB Q4H PRN PRN Reason: SHORT OF BREATH/WHEEZING Amino Acids (Prosource No Carb Liquid Pkt) 30 ml PO BID@0800,1730 [facility] Last Admin: 04/13/19 17:14 Dose: 30 ml Calcium Acetate (Phoslo -) 667 mg PO TIDCM [facility] Last Admin: 04/13/19 17:14 Dose: 667 mg Doxazosin Mesylate (Cardura -) 4 mg PO DAILY [facility] Last Admin: 04/13/19 11:22 Dose: 4 mg Fluticasone Propionate (Flonase -) 1 spray NS DAILY [facility] Last Admin: 04/13/19 11:22 Dose: 1 spray Gabapentin (Neurontin -) 300 mg PO TID [facility] Last Admin: 04/14/19 06:30 Dose: 300 mg Piperacillin Sod/Tazobactam (Sod 2.25 gm/ Dextrose) 50 mls @ 100 mls/hr IVPB BID [facility]; Protocol Insulin Aspart (Novolog Vial Sliding Scale -) 1 vial SQ HS [facility]; Protocol Last Admin: 04/13/19 21:50 Dose: 3 units Insulin Aspart (Novolog Vial Sliding Scale -) 1 vial SQ TIDAC [facility]; Protocol Last Admin: 04/14/19 06:30 Dose: 3 unit Lidocaine (Lidoderm Patch -) 1 patch TP DAILY [facility] Last Admin: 04/13/19 11:23 Dose: 1 patch Melatonin (Melatonin) 10 mg PO HS [facility] Last Admin: 04/13/19 21:50 Dose: 10 mg Methadone HCl (Dolophine -) 5 mg PO TID [facility] Last Admin: 04/14/19 06:30 Dose: 5 mg Miscellaneous (Lidoderm Patch Removal) 1 each MC DAILY@2200 [facility] Last Admin: 04/13/19 21:50 Dose: 1 each Morphine Sulfate (Morphine Sulfate) 4 mg IVPUSH Q4H PRN PRN Reason: PAIN LEVEL 6-10 Last Admin: 04/14/19 06:31 Dose: 4 mg Multivit/Ca Carb/B Cmplx/FA/Prenat (Nephro-Guilherme -) 1 tablet PO DAILY [facility] Nifedipine (Procardia Xl -) 90 mg PO DAILY [facility] Last Admin: 04/13/19 11:21 Dose: 90 mg Petrolatum (Vaseline) 1 applic TP DAILY PRN PRN Reason: DRY SKIN Trazodone HCl 400 mg/ (Trazodone HCl 50 mg) 450 mg PO HS [facility] Last Admin: 04/13/19 21:49 Dose: 450 mg Vancomycin HCl (Vancomycin Oral Solution) 125 mg PO Q6HPO [facility] Last Admin: 04/14/19 06:30 Dose: 125 mg - Objective Vital Signs: Vital Signs Temperature 98.4 F 04/14/19 09:55 Pulse Rate 82 04/14/19 10:30 Respiratory Rate 18 04/14/19 10:30 Blood Pressure 102/64 04/14/19 10:30 O2 Sat by Pulse Oximetry (%) 96 04/13/19 21:00 Neck: Yes: Supple Cardiovascular: Yes: Regular Rate and Rhythm, S1, S2 Respiratory: Yes: Diminished Gastrointestinal: Yes: Normal Bowel Sounds, Soft. No: Tenderness Extremities: Yes: Amputation (B/L BKA) Labs: CBC, BMP 04/14/19 10:00 Problem List - Problems (1) Cellulitis of right foot Code(s): L03.115 - CELLULITIS OF RIGHT LOWER LIMB (2) Diastolic CHF Code(s): I50.30 - UNSPECIFIED DIASTOLIC (CONGESTIVE) HEART FAILURE (3) ESRD (end stage renal disease) on dialysis Code(s): N18.6 - END STAGE RENAL DISEASE; Z99.2 - DEPENDENCE ON RENAL DIALYSIS (4) Gangrene of right foot Code(s): I96 - GANGRENE, NOT ELSEWHERE CLASSIFIED (5) HTN (hypertension) Code(s): I10 - ESSENTIAL (PRIMARY) HYPERTENSION (6) Pericardial effusion Code(s): I31.3 - PERICARDIAL EFFUSION (NONINFLAMMATORY) (7) Status post amputation of right foot Code(s): Z89.431 - ACQUIRED ABSENCE OF RIGHT FOOT (8) Anemia Code(s): D64.9 - ANEMIA, UNSPECIFIED Qualifiers: Anemia type: due to chronic kidney disease Chronic kidney disease stage: on chronic dialysis Qualified Code(s): N18.6 - End stage renal disease; D63.1 - Anemia in chronic kidney disease; Z99.2 - Dependence on renal dialysis (9) Foot infection Code(s): L08.9 - LOCAL INFECTION OF THE SKIN AND SUBCUTANEOUS TISSUE, UNSP (10) Acute on chronic diastolic heart failure Code(s): I50.33 - ACUTE ON CHRONIC DIASTOLIC (CONGESTIVE) HEART FAILURE (11) Bacteremia due to Gram-positive bacteria Code(s): R78.81 - BACTEREMIA (12) ESRD (end stage renal disease) Code(s): N18.6 - END STAGE RENAL DISEASE (13) Hemodialysis access, AV graft Code(s): Z99.2 - DEPENDENCE ON RENAL DIALYSIS (14) Osteomyelitis of right foot Code(s): M86.9 - OSTEOMYELITIS, UNSPECIFIED Qualifiers: (15) Peripheral vascular disease due to secondary diabetes Code(s): E13.51 - OTH DIABETES W DIABETIC PERIPHERAL ANGIOPATHY W/O GANGRENE (16) Sepsis Code(s): A41.9 - SEPSIS, UNSPECIFIED ORGANISM Qualifiers: Sepsis type: methicillin susceptible Staphylococcus aureus Qualified Code(s ): A41.01 - Sepsis due to Methicillin susceptible Staphylococcus aureus (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 Post right LE BKA with infected foot and osteomyelitis, MRSA bacteremia 2. HTN 3. DM 4. ESRD on HD 5. Pericardial effusion referable to uremic pericarditis, resolved 6. PAD post left BKA in the past 7. Anemia of chronic disease 8. History of substance abuse currently on Methadone PLAN: 1. Continue HD as per Renal service 2. Antibiotic coverage as per ID and wound care 3. Continue Procardia XL and Doxazocin as tolerated 4. Continue current medical therapy as per primary medical team [place] Diallo MD
[2019-04-14] MEDS: CALCIUM ACETATE 667 MG CAPSULE (FP) PO SCH ×2 (11:40→16:52)
[2019-04-14] MEDS: DOXAZOSIN MESYLATE 4 MG TABLET PO SCH (11:40)
[2019-04-14] MEDS: AMINO ACIDS/PROTEIN HYDROLYS 30 ML LIQUID.PKT PO SCH ×2 (11:40→16:53)
[2019-04-14] MEDS: VITAMIN B COMP W-C 1 EA TABLET PO SCH (11:40)
[2019-04-14 11:41] LABS: BLOOD UREA NITROGEN 47.4 mg/dL (7-18); CALCIUM 7.5 mg/dL (8.5-10.1); CREATININE 5.9 mg/dL (0.55-1.3); POTASSIUM 4.1 mmol/L (3.5-5.1)
[2019-04-14] MEDS: NIFEdipine E.R. 90 MG TABLET (FP) PO SCH (11:41)
--- NOTE | 2019-04-14 11:41 | PN ---
Progress Note (short form) - Note Progress Note: VASCULAR SURGERY POD #4 s/p RLE Guillotine amputation No aacute events per RN notes. Patient is alert. Feeling much better. Mild incisional tenderness to RLE (s/p guillotine amputation) Denies n/v/f/c, CP, palpitations, SOB or MEYER. Last Vital Signs Temp Pulse Resp BP Pulse Ox 98.4 F 82 18 102/64 96 04/14/19 09:55 04/14/19 10:30 04/14/19 10:30 04/14/19 10:30 04/13/19 21:00 WBC TREND 04/12/19 04/13/19 04/14/19 09:30 07:35 10:00 WBC 12.8 13.3 15.4 Gen: nad RLE: knee immobilizer in place. Wound dressed prior too my arrival. Problem List - Problems (1) Gas gangrene of foot Assessment/Plan: Cont knee immobilier Tight glycemic control HD prn per Nephrology IV ABX as per ID Continue current care as per primary team Plan for formal RLE BKA 04/16/19 Medical optimization / clearance Code(s): A48.0 - GAS GANGRENE (2) ESRD (end stage renal disease) on dialysis Code(s): N18.6 - END STAGE RENAL DISEASE; Z99.2 - DEPENDENCE ON RENAL DIALYSIS (3) Uncontrolled diabetes mellitus Code(s): E11.65 - TYPE 2 DIABETES MELLITUS WITH HYPERGLYCEMIA Qualifiers: Diabetes mellitus type: type 2 Glycemic state: with hyperglycemia Qualified Code(s): E11.65 - Type 2 diabetes mellitus with hyperglycemia (4) Foot infection Code(s): L08.9 - LOCAL INFECTION OF THE SKIN AND SUBCUTANEOUS TISSUE, UNSP
--- NOTE | 2019-04-14 13:08 | PN ---
Progress Note (short form) - Note Progress Note: Renal follow up for ESRD on HD Seen and examined during dialysis this am BP stable, goal UF 1.5L access with good flow pt offers no acute complaints no fevers, chills, sob, chest pain Vital Signs Temperature 98.4 F 04/14/19 09:55 Pulse Rate 87 04/14/19 13:00 Respiratory Rate 18 04/14/19 13:00 Blood Pressure 116/69 04/14/19 13:00 O2 Sat by Pulse Oximetry (%) 96 04/13/19 21:00 Intake & Output 04/11/19 04/12/19 04/13/19 04/14/19 23:59 23:59 23:59 23:59 Intake Total 1919 1010 1025 518 Output Total 1900 150 250 Balance 19 860 775 518 Weight 78.5 kg 80.286 kg 80.371 kg NAD awake and alert neck supple, no JVD RRR CTA soft NT/ND no LE edema CBC, BMP 04/14/19 10:00 04/14/19 10:00 Current Medications Acetaminophen (Ofirmev Injection -) 1,000 mg IVPB Q6H PRN PRN Reason: PAIN LEVEL 1-5 Albuterol Sulfate (Ventolin 0.083% Nebulizer Soln -) 1 amp NEB Q4H PRN PRN Reason: SHORT OF BREATH/WHEEZING Amino Acids (Prosource No Carb Liquid Pkt) 30 ml PO BID@0800,1730 [facility] Last Admin: 04/14/19 11:40 Dose: Not Given Calcium Acetate (Phoslo -) 1,334 mg PO TIDCM [facility] Doxazosin Mesylate (Cardura -) 4 mg PO DAILY [facility] Last Admin: 04/14/19 11:40 Dose: Not Given Fluticasone Propionate (Flonase -) 1 spray NS DAILY [facility] Last Admin: 04/13/19 11:22 Dose: 1 spray Gabapentin (Neurontin -) 300 mg PO TID [facility] Last Admin: 04/14/19 06:30 Dose: 300 mg Piperacillin Sod/Tazobactam (Sod 2.25 gm/ Dextrose) 50 mls @ 100 mls/hr IVPB BID [facility]; Protocol Insulin Aspart (Novolog Vial Sliding Scale -) 1 vial SQ HS [facility]; Protocol Last Admin: 04/13/19 21:50 Dose: 3 units Insulin Aspart (Novolog Vial Sliding Scale -) 1 vial SQ TIDAC [facility]; Protocol Last Admin: 04/14/19 06:30 Dose: 3 unit Lidocaine (Lidoderm Patch -) 1 patch TP DAILY [facility] Last Admin: 04/13/19 11:23 Dose: 1 patch Melatonin (Melatonin) 10 mg PO HS [facility] Last Admin: 04/13/19 21:50 Dose: 10 mg Methadone HCl (Dolophine -) 5 mg PO TID [facility] Last Admin: 04/14/19 06:30 Dose: 5 mg Miscellaneous (Lidoderm Patch Removal) 1 each MC DAILY@2200 [facility] Last Admin: 04/13/19 21:50 Dose: 1 each Morphine Sulfate (Morphine Sulfate) 4 mg IVPUSH Q4H PRN PRN Reason: PAIN LEVEL 6-10 Last Admin: 04/14/19 06:31 Dose: 4 mg Multivit/Ca Carb/B Cmplx/FA/Prenat (Nephro-Guilherme -) 1 tablet PO DAILY [facility] Last Admin: 04/14/19 11:40 Dose: Not Given Nifedipine (Procardia Xl -) 90 mg PO DAILY [facility] Last Admin: 04/14/19 11:41 Dose: Not Given Petrolatum (Vaseline) 1 applic TP DAILY PRN PRN Reason: DRY SKIN Trazodone HCl 400 mg/ (Trazodone HCl 50 mg) 450 mg PO HS [facility] Last Admin: 04/13/19 21:49 Dose: 450 mg Vancomycin HCl (Vancomycin Oral Solution) 125 mg PO Q6HPO [facility] Last Admin: 04/14/19 06:30 Dose: 125 mg 63 year old gentleman with history of ESRD on HD (TTS), DM, PVD s/p BKA who presented from home with non-healing foot wound. 1. ESRD on HD 2. Infected foot wound 3. Anemia of CKD 4. Pseudohyponatremia 5. Metabolic acidosis 6. Leukocytosis 7. PVD 8 DM type 2 on insulin tolerating dialysis well this am, UF 1.5L to get IV vanco post dialysis this am Vascular and podiatry follow up, for BKA on 04/16 will maintain on TTS HD schedule while inpatient. Hgb is improved, will continue high dose ADRIAN Thank you Miguel Jansen DO
[2019-04-14] MEDS ORDERED: VANCOMYCIN 1 GM in D5W (PRE-DOCKED) 1,000 MG/250 ML IVPB ONE (13:20)
--- NOTE | 2019-04-14 13:54 | PN ---
Progress Note, Physician History of Present Illness: Pt is alert, afebrile. Denies having any new issues. Pain is controlled. - Current Medication List Current Medications: Active Medications Acetaminophen (Ofirmev Injection -) 1,000 mg IVPB Q6H PRN PRN Reason: PAIN LEVEL 1-5 Albuterol Sulfate (Ventolin 0.083% Nebulizer Soln -) 1 amp NEB Q4H PRN PRN Reason: SHORT OF BREATH/WHEEZING Amino Acids (Prosource No Carb Liquid Pkt) 30 ml PO BID@0800,1730 [facility] Last Admin: 04/14/19 11:40 Dose: Not Given Calcium Acetate (Phoslo -) 1,334 mg PO TIDCM [facility] Doxazosin Mesylate (Cardura -) 4 mg PO DAILY [facility] Last Admin: 04/14/19 11:40 Dose: Not Given Fluticasone Propionate (Flonase -) 1 spray NS DAILY [facility] Last Admin: 04/13/19 11:22 Dose: 1 spray Gabapentin (Neurontin -) 300 mg PO TID [facility] Last Admin: 04/14/19 06:30 Dose: 300 mg Piperacillin Sod/Tazobactam (Sod 2.25 gm/ Dextrose) 50 mls @ 100 mls/hr IVPB BID [facility]; Protocol Insulin Aspart (Novolog Vial Sliding Scale -) 1 vial SQ HS [facility]; Protocol Last Admin: 04/13/19 21:50 Dose: 3 units Insulin Aspart (Novolog Vial Sliding Scale -) 1 vial SQ TIDAC [facility]; Protocol Last Admin: 04/14/19 06:30 Dose: 3 unit Lidocaine (Lidoderm Patch -) 1 patch TP DAILY [facility] Last Admin: 04/13/19 11:23 Dose: 1 patch Melatonin (Melatonin) 10 mg PO HS [facility] Last Admin: 04/13/19 21:50 Dose: 10 mg Methadone HCl (Dolophine -) 5 mg PO TID [facility] Last Admin: 04/14/19 06:30 Dose: 5 mg Miscellaneous (Lidoderm Patch Removal) 1 each MC DAILY@2200 [facility] Last Admin: 04/13/19 21:50 Dose: 1 each Morphine Sulfate (Morphine Sulfate) 4 mg IVPUSH Q4H PRN PRN Reason: PAIN LEVEL 6-10 Last Admin: 04/14/19 06:31 Dose: 4 mg Multivit/Ca Carb/B Cmplx/FA/Prenat (Nephro-Guilherme -) 1 tablet PO DAILY [facility] Last Admin: 04/14/19 11:40 Dose: Not Given Nifedipine (Procardia Xl -) 90 mg PO DAILY [facility] Last Admin: 04/14/19 11:41 Dose: Not Given Petrolatum (Vaseline) 1 applic TP DAILY PRN PRN Reason: DRY SKIN Trazodone HCl 400 mg/ (Trazodone HCl 50 mg) 450 mg PO HS [facility] Last Admin: 04/13/19 21:49 Dose: 450 mg Vancomycin HCl (Vancomycin Oral Solution) 125 mg PO Q6HPO [facility] Last Admin: 04/14/19 06:30 Dose: 125 mg - Objective Vital Signs: Vital Signs Temperature 98.4 F 04/14/19 09:55 Pulse Rate 81 04/14/19 13:35 Respiratory Rate 18 04/14/19 13:35 Blood Pressure 124/74 04/14/19 13:35 O2 Sat by Pulse Oximetry (%) 96 04/13/19 21:00 Constitutional: Yes: No Distress, Calm Cardiovascular: Yes: Regular Rate and Rhythm Respiratory: Yes: Regular Gastrointestinal: Yes: Normal Bowel Sounds, Soft Wound/Incision: Yes: Dressing Dry and Intact (Rt foot dressing intact/ Rt knee immobilizer, Lt BKA healed) Neurological: Yes: Alert, Oriented Labs: CBC, BMP 04/14/19 10:00 04/14/19 10:00 INR, PTT INR 1.27 (0.83-1.09) H 04/11/19 06:00 Laboratory Results - last 24 hr 04/07/19 04/10/19 04/13/19 21:00 22:00 17:13 WBC RBC Hgb Hct MCV MCH MCHC RDW Plt Count MPV Sodium Potassium Chloride Carbon Dioxide Anion Gap BUN Creatinine Est GFR (CKD-EPI)AfAm Est GFR (CKD-EPI)NonAf POC Glucometer 295 Random Glucose Calcium Phosphorus Blood Type B POSITIVE B POSITIVE Antibody Screen Negative Negative Crossmatch See Detail See Detail Crossmatch IS Only See Detail 04/13/19 04/14/19 04/14/19 21:46 06:27 10:00 WBC RBC Hgb Hct MCV MCH MCHC RDW Plt Count MPV Sodium Potassium Chloride Carbon Dioxide Anion Gap BUN Creatinine Est GFR (CKD-EPI)AfAm Est GFR (CKD-EPI)NonAf POC Glucometer 277 207 Random Glucose Calcium Phosphorus Blood Type B POSITIVE Antibody Screen Negative Crossmatch Crossmatch IS Only 04/14/19 04/14/19 04/14/19 10:00 10:00 11:36 WBC 15.4 H RBC 2.97 L Hgb 8.3 L Hct 26.2 L MCV 88.3 MCH 27.8 MCHC 31.5 L RDW 16.2 H Plt Count 336 MPV 9.1 Sodium 138 Potassium 4.1 Chloride 100 Carbon Dioxide 30 Anion Gap 8 BUN 47.4 H Creatinine 5.9 H Est GFR (CKD-EPI)AfAm 10.81 Est GFR (CKD-EPI)NonAf 9.33 POC Glucometer 192 Random Glucose 167 H Calcium 7.5 L Phosphorus 5.0 H Blood Type Antibody Screen Crossmatch Crossmatch IS Only - ....Imaging Other: Report Reviewed (ECHO) Problem List - Problems (1) Diabetes Code(s): E11.9 - TYPE 2 DIABETES MELLITUS WITHOUT COMPLICATIONS (2) Diastolic CHF Code(s): I50.30 - UNSPECIFIED DIASTOLIC (CONGESTIVE) HEART FAILURE (3) ESRD (end stage renal disease) on dialysis Code(s): N18.6 - END STAGE RENAL DISEASE; Z99.2 - DEPENDENCE ON RENAL DIALYSIS (4) Gangrene of right foot Code(s): I96 - GANGRENE, NOT ELSEWHERE CLASSIFIED (5) HTN (hypertension) Code(s): I10 - ESSENTIAL (PRIMARY) HYPERTENSION (6) Status post amputation of right foot Code(s): Z89.431 - ACQUIRED ABSENCE OF RIGHT FOOT (7) Amputation, below knee, unilateral, traumatic Code(s): S88.119A - COMPLETE TRAUM AMP AT LEV BETW KN & ANKL, UNSP LOW LEG, INIT Qualifiers: Encounter type: subsequent encounter Laterality: left Qualified Code(s): S88.112D - Complete traumatic amputation at level between knee and ankle, left lower leg, subsequent encounter (8) Bacteremia due to Gram-positive bacteria Code(s): R78.81 - BACTEREMIA (9) Hemodialysis access, AV graft Code(s): Z99.2 - DEPENDENCE ON RENAL DIALYSIS (10) Osteomyelitis of right foot Code(s): M86.9 - OSTEOMYELITIS, UNSPECIFIED Qualifiers: (11) Peripheral vascular disease due to secondary diabetes Code(s): E13.51 - OTH DIABETES W DIABETIC PERIPHERAL ANGIOPATHY W/O GANGRENE (12) Sepsis Code(s): A41.9 - SEPSIS, UNSPECIFIED ORGANISM Qualifiers: Sepsis type: methicillin susceptible Staphylococcus aureus Qualified Code(s ): A41.01 - Sepsis due to Methicillin susceptible Staphylococcus aureus (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 Code(s): J43.9 - EMPHYSEMA, UNSPECIFIED (14) Diabetic neuropathy Code(s): E11.40 - TYPE 2 DIABETES MELLITUS WITH DIABETIC NEUROPATHY, UNSP Qualifiers: Diabetes mellitus type: type 2 Diabetes mellitus complication detail: diabetic polyneuropathy Qualified Code(s): E11.42 - Type 2 diabetes mellitus with diabetic polyneuropathy (15) HTN (hypertension) Code(s): I10 - ESSENTIAL (PRIMARY) HYPERTENSION Qualifiers: Hypertension type: essential hypertension Qualified Code(s): I10 - Essential (primary) hypertension Assessment/Plan Gram Positive Bacteremia Sepsis Rt foot gangrene s/p Guillotine amp POD #4 ESRD on HD DM with neuropathy PVD -- awaiting Rt BKA -- Vancomycin level noted, dose based on levels, re-ordered -- Jodie-operative Zosyn ordered -- glycemic control -- Latest blood cultures neg, Echo results noted -- monitor wbc, slightly elevated from yesterday -- continue monitor vitals
--- NOTE | 2019-04-14 14:46 | PN ---
Progress Note (short form) - Note Progress Note: No new complaints' Blood sugar 200s Improved apetite Vital Signs Period Temp Pulse Resp BP Sys/Gutierrez Pulse Ox Last 24 Hr 97.7 F-98.7 F 73-91 18-20 91-142/63-87 96 PE: AOx3 Neck: Supple, NO JVD HEENT: EOM Lungs: CTA CVS; S1s2 Abd: Benign Ext: Left BKA, Rt leg surgery site dressing Neuro: No focal deficit CMP Sodium 138 mmol/L (136-145) 04/14/19 10:00 Potassium 4.1 mmol/L (3.5-5.1) 04/14/19 10:00 Chloride 100 mmol/L (98-107) 04/14/19 10:00 Carbon Dioxide 30 mmol/L (21-32) 04/14/19 10:00 Anion Gap 8 MMOL/L (8-16) 04/14/19 10:00 BUN 47.4 mg/dL (7-18) H 04/14/19 10:00 Creatinine 5.9 mg/dL (0.55-1.3) H 04/14/19 10:00 Est GFR (CKD-EPI)AfAm 10.81 04/14/19 10:00 Est GFR (CKD-EPI)NonAf 9.33 04/14/19 10:00 POC Glucometer 192 UNITS (80-120) 04/14/19 11:36 Random Glucose 167 mg/dL (74-106) H 04/14/19 10:00 Hemoglobin A1c % 10.8 % (4.2-6.3) H 04/07/19 11:15 Lactic Acid 0.9 mmol/L (0.4-2.0) 04/06/19 23:00 Calcium 7.5 mg/dL (8.5-10.1) L 04/14/19 10:00 Phosphorus 5.0 mg/dL (2.5-4.9) H 04/14/19 10:00 Magnesium 2.0 mg/dL (1.8-2.4) 04/13/19 07:35 Iron 21 ug/dL (50-175) L 04/09/19 09:30 TIBC 70 ug/dL (250-450) L 04/09/19 09:30 Iron Saturation 30 % (17.5-39) 04/09/19 09:30 Unsaturated IBC 49 ug/dL (200-275) L 04/09/19 09:30 Ferritin 1970.5 ng/ml (8-388) H 04/09/19 09:30 Total Bilirubin 0.4 mg/dL (0.2-1) 04/12/19 09:30 AST 9 U/L (15-37) L 04/12/19 09:30 ALT 8 U/L (13-61) L 04/12/19 09:30 Alkaline Phosphatase 151 U/L (45-117) H 04/12/19 09:30 Creatine Kinase 26 U/L (26-308) 04/06/19 23:00 Troponin I < 0.02 ng/ml (0.00-0.05) 04/06/19 23:00 C-Reactive Protein 22.3 MG/DL (0.00-0.3) H 04/07/19 11:15 Total Protein 5.2 g/dl (6.4-8.2) L 04/12/19 09:30 Albumin 1.4 g/dl (3.4-5.0) L 04/12/19 09:30 Vitamin B12 1212 pg/ml (193-986) H 04/09/19 09:30 Serum Folate 13 ng/mL (3.1-17.5) 04/09/19 09:30 Current Medications Generic Name Dose Route Start Last Admin Trade Name Freq PRN Reason Stop Dose Admin Acetaminophen 1,000 mg 04/13/19 02:15 Ofirmev Injection - IVPB Q6H PRN PAIN LEVEL 1-5 Albuterol Sulfate 1 amp 04/13/19 02:15 Ventolin 0.083% Nebulizer Soln - NEB Q4H PRN SHORT OF BREATH/WHEEZING Amino Acids 30 ml 04/13/19 17:30 04/14/19 11:40 Prosource No Carb Liquid Pkt PO Not Given BID@0800,1730 [facility] Calcium Acetate 1,334 mg 04/14/19 13:05 Phoslo - PO TIDCM [facility] Doxazosin Mesylate 4 mg 04/13/19 10:00 04/14/19 11:40 Cardura - PO Not Given DAILY [facility] Fluticasone Propionate 1 spray 04/13/19 10:00 04/13/19 11:22 Flonase - NS 1 spray DAILY [facility] Administration Gabapentin 300 mg 04/13/19 16:00 04/14/19 06:30 Neurontin - PO 300 mg TID [facility] Administration Piperacillin Sod/Tazobactam 50 mls @ 100 mls/hr 04/15/19 10:00 Sod 2.25 gm/ Dextrose IVPB BID [facility] Protocol Insulin Aspart 1 vial 04/13/19 22:00 04/13/19 21:50 Novolog Vial Sliding Scale - SQ 3 units HS [facility] Administration Protocol Insulin Aspart 1 vial 04/13/19 07:00 04/14/19 06:30 Novolog Vial Sliding Scale - SQ 3 unit TIDAC [facility] Administration Protocol Lidocaine 1 patch 04/13/19 10:00 04/13/19 11:23 Lidoderm Patch - TP 1 patch DAILY [facility] Administration Melatonin 10 mg 04/12/19 22:00 04/13/19 21:50 Melatonin PO 10 mg HS [facility] Administration Methadone HCl 5 mg 04/13/19 15:53 04/14/19 06:30 Dolophine - PO 5 mg TID [facility] Administration Miscellaneous 1 each 04/13/19 22:00 04/13/19 21:50 Lidoderm Patch Removal MC 1 each DAILY@2200 [facility] Administration Morphine Sulfate 4 mg 04/13/19 11:15 04/14/19 06:31 Morphine Sulfate IVPUSH 4 mg Q4H PRN Administration PAIN LEVEL 6-10 Multivit/Ca Carb/B Cmplx/FA/Prenat 1 tablet 04/14/19 10:00 04/14/19 11:40 Nephro-Guilherme - PO Not Given DAILY [facility] Nifedipine 90 mg 04/13/19 10:00 04/14/19 11:41 Procardia Xl - PO Not Given DAILY [facility] Petrolatum 1 applic 04/13/19 02:15 Vaseline TP DAILY PRN DRY SKIN Trazodone HCl 400 mg/ 450 mg 04/13/19 22:00 04/13/19 21:49 Trazodone HCl 50 mg PO 450 mg HS [facility] Administration Vancomycin HCl 125 mg 04/13/19 06:00 04/14/19 06:30 Vancomycin Oral Solution PO 125 mg Q6HPO [facility] Administration AP: Right foot Infection/Metatarsal osteomyelitis: S/P Rt BKA S/P Transmetatarsal amputation: Sepsis ESRD on HD DM Uncontrolled: A1c 10.3/Episode of hypoglycemia asymptomatic HTN PVD S/P Left BKA H/O MRSA bacteremia 09/2017 suspected from HD catheter H.O Right IJ thrombus in 09/2017 (suspected catheter related) BGM QACHS and 3 PM Monitor blood sugar closely as pts with CKD tend to be very sensitive to Insulin and develop hypoglycemia frequently Start Levemir 3 units daily at HS. Hold when BGM <140 Novolog SS coverage Will F/u
[2019-04-14] MEDS: FLUTICASONE PROP 0.05% 16 GM NASAL SPRAY NS SCH (17:02)
--- NOTE | 2019-04-14 18:06 | PATH ---
Surgical Pathology Report Patient Name: MARIAJOSE MALAVE [facility]. Rec. #: [id number] /Age/Gender: 1955 (Age: 63) / M Account: [id number] Location: [address] [place] [address] Taken: 04/09/2019 Received: 04/09/2019 Reported: 04/14/2019 Physicians: Alfonso Raymundo Specimen(s) Received A: DEBRIDED TISSUE B: BONE Clinical History Foot infection Final Diagnosis A. DEBRIDED TISSUE, EXCISION: SOFT TISSUE AND SKELETAL MUSCLE WITH MARKED ACUTE INFLAMMATION AND NECROSIS. B. BONE, RIGHT, TRANSMETATARSAL REVISION: MODERATE ACUTE OSTEOMYELITIS. Electronically Signed Cinthia Reeder M.D. Gross Description A. Received in formalin labeled "debrided tissue," is a 5.0 x 4.0 x 0.6 cm aggregate of rae cotter, necrotic portions of soft tissue. Radio Interference Investigator sections are submitted in one cassette. B. Received in formalin labeled "bone," is a 1.3 x 1.0 x 0.3 cm rae-yellow portion of bone. The specimen is submitted in toto in one cassette, following decalcification. 04/10/201904/10/2019
[2019-04-14] MEDS ORDERED: INSULIN (NOVOLOG) ASPART 100 UNITS/ML 10ML VIAL ONE (21:08)
[2019-04-14] MEDS: TRAZODONE HCL PO SCH (21:57)
[2019-04-14] MEDS: MELATONIN 5 MG TABLETS PO SCH (21:58)
[2019-04-14] MEDS: LIDOCAINE PATCH REMOVAL MC SCH (21:58)
[2019-04-14] MEDS ORDERED: INSULIN (LEVEMIR) 100 UNITS/ML UNITS SQ SCH (22:00)
[2019-04-15] MEDS: VANCOMYCIN 250 MG/5 ML ORAL SOLUTION PO SCH ×5 (00:45→23:32)
[2019-04-15] MEDS: METHADONE HCL 5 MG TABLET PO SCH ×3 (06:26→21:58)
[2019-04-15] MEDS: morphine SULFATE 4 MG/ML VIAL IVPUSH PRN ×3 (06:27→21:58)
[2019-04-15] MEDS: GABAPENTIN 300 MG CAPSULE (FP) PO SCH ×3 (06:27→21:58)
[2019-04-15] MEDS: INSULIN SLIDING SCALE (NOVOLOG) 1 VIAL SQ SCH ×4 (06:27→21:58)
--- NOTE | 2019-04-15 07:45 | SPA.PREOP ---
- PRE-OP NOTE Dx: gangrene of right LE POD #5 s/p RLE Guillotine amputation Planned Procedure: right above the knee amputation. Surgeon: Al Daly Vital Signs Temp 97.5 F L 04/15/19 05:34 Pulse 75 04/15/19 05:34 Resp 18 04/15/19 05:34 BP 137/78 04/15/19 05:34 Pulse Ox 96 04/13/19 21:00 Intake & Output 04/14/19 04/14/19 04/15/19 11:59 23:59 11:59 Intake Total 920 600 Output Total 2100 Balance 920 -1500 Weight 177 lb 3 oz 175 lb Intake: IV 200 300 Normal Saline - 250 ml @ [phone] mls/hr IV PRN PRN Rx #:[id number] Oral 300 Oral Supplement 720 Output: Urine 100 Void 100 Fluid Removed, 2000 Hemodialysis Other: Voiding Method Urinal Diaper # Unmeasured Voids Void 300 Bowel Movement No # Bowel Movements 1 Weight Measurement Method Built in Bedscale Built in Bedscale CBC, BMP 04/14/19 10:00 04/14/19 10:00 Problem List - Problems (1) Gangrene of right foot Assessment/Plan: Make NPO after midnight except po meds GI/DVT PPX Medical optimization / clearance Consent to be obtained by surgeon after risks, benefits and alternatives discussed with patient and or Health Care Proxy. Cont knee immobilier Tight glycemic control HD prn per Nephrology IV ABX as per ID Plan for formal RLE BKA 04/16/19 Code(s): I96 - GANGRENE, NOT ELSEWHERE CLASSIFIED
[2019-04-15 08:14] LABS: HEMATOCRIT 24.7 % (35.4-49); HEMOGLOBIN 7.9 GM/dL (11.7-16.9); MCH 28.5 pg (25.7-33.7); MCHC 32.1 g/dl (32.0-35.9); MEAN CELL VOLUME 88.8 fl (80-96); MEAN PLT VOLUME 8.5 fl (7.5-11.1); PLATELET COUNT 333 K/MM3 (134-434); RBC 2.78 M/mm3 (4.00-5.60); RDW 16.4 % (11.9-15.9)
[2019-04-15] MEDS: AMINO ACIDS/PROTEIN HYDROLYS 30 ML LIQUID.PKT PO SCH ×2 (08:23→16:29)
[2019-04-15] MEDS: CALCIUM ACETATE 667 MG CAPSULE (FP) PO SCH ×3 (08:24→16:29)
[2019-04-15 08:35] LABS: BLOOD UREA NITROGEN 27.6 mg/dL (7-18); CALCIUM 7.3 mg/dL (8.5-10.1); MAGNESIUM 2.1 mg/dL (1.8-2.4); PHOSPHOROUS 3.8 mg/dL (2.5-4.9); POTASSIUM 3.7 mmol/L (3.5-5.1)
[2019-04-15] MEDS ORDERED: PIPERACILLIN/TAZOBACTAM 2.25 GM VIAL IVPB ONE ×2 (10:04→21:41)
[2019-04-15] MEDS ORDERED: DEXTROSE 5%-WATER - 50 ML IVPB ONE ×2 (10:04→21:41)
[2019-04-15] MEDS ORDERED: PT OWN MED DRAWER 7, Y5N ONE (10:04)
--- NOTE | 2019-04-15 10:08 | PN ---
Progress Note (short form) - Note Progress Note: No new complaints' Blood sugar improving Improved apetite For surgery tomorrow, Vital Signs Period Temp Pulse Resp BP Sys/Gutierrez Pulse Ox Last 24 Hr 97.4 F-98.5 F 75-91 18-20 91-150/61-80 PE: AOx3 Neck: Supple, NO JVD HEENT: EOM Lungs: CTA CVS; S1s2 Abd: Benign Ext: Left BKA, Rt leg surgery site dressing Neuro: No focal deficit CMP Sodium 141 mmol/L (136-145) 04/15/19 07:26 Potassium 3.7 mmol/L (3.5-5.1) 04/15/19 07:26 Chloride 103 mmol/L (98-107) 04/15/19 07:26 Carbon Dioxide 32 mmol/L (21-32) 04/15/19 07:26 Anion Gap 6 MMOL/L (8-16) L 04/15/19 07:26 BUN 27.6 mg/dL (7-18) H 04/15/19 07:26 Creatinine 4.0 mg/dL (0.55-1.3) H 04/15/19 07:26 Est GFR (CKD-EPI)AfAm 17.29 04/15/19 07:26 Est GFR (CKD-EPI)NonAf 14.92 04/15/19 07:26 POC Glucometer 106 UNITS (80-120) 04/15/19 06:25 Random Glucose 89 mg/dL (74-106) 04/15/19 07:26 Hemoglobin A1c % 10.8 % (4.2-6.3) H 04/07/19 11:15 Lactic Acid 0.9 mmol/L (0.4-2.0) 04/06/19 23:00 Calcium 7.3 mg/dL (8.5-10.1) L 04/15/19 07:26 Phosphorus 3.8 mg/dL (2.5-4.9) 04/15/19 07:26 Magnesium 2.1 mg/dL (1.8-2.4) 04/15/19 07:26 Iron 21 ug/dL (50-175) L 04/09/19 09:30 TIBC 70 ug/dL (250-450) L 04/09/19 09:30 Iron Saturation 30 % (17.5-39) 04/09/19 09:30 Unsaturated IBC 49 ug/dL (200-275) L 04/09/19 09:30 Ferritin 1970.5 ng/ml (8-388) H 04/09/19 09:30 Total Bilirubin 0.4 mg/dL (0.2-1) 04/12/19 09:30 AST 9 U/L (15-37) L 04/12/19 09:30 ALT 8 U/L (13-61) L 04/12/19 09:30 Alkaline Phosphatase 151 U/L (45-117) H 04/12/19 09:30 Creatine Kinase 26 U/L (26-308) 04/06/19 23:00 Troponin I < 0.02 ng/ml (0.00-0.05) 04/06/19 23:00 C-Reactive Protein 22.3 MG/DL (0.00-0.3) H 04/07/19 11:15 Total Protein 5.2 g/dl (6.4-8.2) L 04/12/19 09:30 Albumin 1.4 g/dl (3.4-5.0) L 04/12/19 09:30 Vitamin B12 1212 pg/ml (193-986) H 04/09/19 09:30 Serum Folate 13 ng/mL (3.1-17.5) 04/09/19 09:30 Current Medications Generic Name Dose Route Start Last Admin Trade Name Freq PRN Reason Stop Dose Admin Acetaminophen 1,000 mg 04/13/19 02:15 Ofirmev Injection - IVPB Q6H PRN PAIN LEVEL 1-5 Albuterol Sulfate 1 amp 04/13/19 02:15 Ventolin 0.083% Nebulizer Soln - NEB Q4H PRN SHORT OF BREATH/WHEEZING Amino Acids 30 ml 04/13/19 17:30 04/14/19 16:53 Prosource No Carb Liquid Pkt PO 30 ml BID@0800,1730 [facility] Administration Calcium Acetate 1,334 mg 04/14/19 13:05 04/14/19 16:52 Phoslo - PO 1,334 mg TIDCM [facility] Administration Doxazosin Mesylate 4 mg 04/13/19 10:00 04/14/19 11:40 Cardura - PO Not Given DAILY [facility] Fluticasone Propionate 1 spray 04/13/19 10:00 04/14/19 17:02 Flonase - NS 1 spray DAILY [facility] Administration Gabapentin 300 mg 04/13/19 16:00 04/15/19 06:27 Neurontin - PO 300 mg TID [facility] Administration Piperacillin Sod/Tazobactam 50 mls @ 100 mls/hr 04/15/19 10:00 Sod 2.25 gm/ Dextrose IVPB BID [facility] Protocol Insulin Aspart 1 vial 04/13/19 22:00 04/14/19 21:58 Novolog Vial Sliding Scale - SQ 4 units HS [facility] Administration Protocol Insulin Aspart 1 vial 04/13/19 07:00 04/15/19 06:27 Novolog Vial Sliding Scale - SQ Not Given TIDAC [facility] Protocol Insulin Detemir 3 units 04/14/19 22:00 04/14/19 21:57 Levemir Vial SQ 3 units HS [facility] Administration Lidocaine 1 patch 04/13/19 10:00 04/14/19 10:00 Lidoderm Patch - TP Not Given DAILY [facility] Melatonin 10 mg 04/12/19 22:00 04/14/19 21:58 Melatonin PO 10 mg HS [facility] Administration Methadone HCl 5 mg 04/13/19 15:53 04/15/19 06:26 Dolophine - PO 5 mg TID [facility] Administration Miscellaneous 1 each 04/13/19 22:00 04/14/19 21:58 Lidoderm Patch Removal MC 1 each DAILY@2200 [facility] Administration Morphine Sulfate 4 mg 04/13/19 11:15 04/15/19 06:27 Morphine Sulfate IVPUSH 4 mg Q4H PRN Administration PAIN LEVEL 6-10 Multivit/Ca Carb/B Cmplx/FA/Prenat 1 tablet 04/14/19 10:00 04/14/19 11:40 Nephro-Guilherme - PO Not Given DAILY [facility] Nifedipine 90 mg 04/13/19 10:00 04/14/19 11:41 Procardia Xl - PO Not Given DAILY [facility] Petrolatum 1 applic 04/13/19 02:15 Vaseline TP DAILY PRN DRY SKIN Trazodone HCl 400 mg/ 450 mg 04/13/19 22:00 04/14/19 21:57 Trazodone HCl 50 mg PO 450 mg HS [facility] Administration Vancomycin HCl 125 mg 04/13/19 06:00 04/15/19 06:27 Vancomycin Oral Solution PO 125 mg Q6HPO [facility] Administration Vancomycin HCl 1,000 mg 04/15/19 15:00 Vancomycin (Pre-Docked) IVPB 04/15/19 15:01 ONCE ONE Protocol AP: Right foot Infection/Metatarsal osteomyelitis: S/P Rt BKA S/P Transmetatarsal amputation: Sepsis ESRD on HD DM Uncontrolled: A1c 10.3/Episode of hypoglycemia asymptomatic HTN PVD S/P Left BKA H/O MRSA bacteremia 09/2017 suspected from HD catheter H.O Right IJ thrombus in 09/2017 (suspected catheter related) BGM QACHS and 3 PM Monitor blood sugar closely as pts with CKD tend to be very sensitive to Insulin and develop hypoglycemia frequently Hold Levemir 3 units tonight as pt is npo tonight. Will F/u
[2019-04-15] MEDS: DOXAZOSIN MESYLATE 4 MG TABLET PO SCH (10:25)
[2019-04-15] MEDS: LIDOCAINE 5% TOPICAL PATCH TP SCH (10:25)
[2019-04-15] MEDS: FLUTICASONE PROP 0.05% 16 GM NASAL SPRAY NS SCH (10:26)
[2019-04-15] MEDS: PIPERACILLIN/TAZOB 2.25 GM 2.25 GM in DEXTROSE 5%-WATER - 50 ML IVPB SCH ×2 (10:27→21:58)
[2019-04-15] MEDS: VITAMIN B COMP W-C 1 EA TABLET PO SCH (10:27)
[2019-04-15] MEDS: NIFEdipine E.R. 90 MG TABLET (FP) PO SCH (10:27)
--- NOTE | 2019-04-15 12:55 | PN ---
Progress Note, Physician History of Present Illness: patient stable no new issues - Current Medication List Current Medications: Active Medications Acetaminophen (Ofirmev Injection -) 1,000 mg IVPB Q6H PRN PRN Reason: PAIN LEVEL 1-5 Albuterol Sulfate (Ventolin 0.083% Nebulizer Soln -) 1 amp NEB Q4H PRN PRN Reason: SHORT OF BREATH/WHEEZING Amino Acids (Prosource No Carb Liquid Pkt) 30 ml PO BID@0800,1730 [facility] Last Admin: 04/15/19 08:23 Dose: 30 ml Calcium Acetate (Phoslo -) 1,334 mg PO TIDCM [facility] Last Admin: 04/15/19 08:24 Dose: 1,334 mg Doxazosin Mesylate (Cardura -) 4 mg PO DAILY [facility] Last Admin: 04/15/19 10:25 Dose: 4 mg Fluticasone Propionate (Flonase -) 1 spray NS DAILY [facility] Last Admin: 04/15/19 10:26 Dose: 1 spray Gabapentin (Neurontin -) 300 mg PO TID [facility] Last Admin: 04/15/19 06:27 Dose: 300 mg Piperacillin Sod/Tazobactam (Sod 2.25 gm/ Dextrose) 50 mls @ 100 mls/hr IVPB BID [facility]; Protocol Last Admin: 04/15/19 10:27 Dose: 100 mls/hr Insulin Aspart (Novolog Vial Sliding Scale -) 1 vial SQ HS [facility]; Protocol Last Admin: 04/14/19 21:58 Dose: 4 units Insulin Aspart (Novolog Vial Sliding Scale -) 1 vial SQ TIDAC [facility]; Protocol Last Admin: 04/15/19 06:27 Dose: Not Given Insulin Detemir (Levemir Vial) 3 units SQ [facility] Last Admin: 04/14/19 21:57 Dose: 3 units Lidocaine (Lidoderm Patch -) 1 patch TP DAILY [facility] Last Admin: 04/15/19 10:25 Dose: 1 patch Melatonin (Melatonin) 10 mg PO [facility] Last Admin: 04/14/19 21:58 Dose: 10 mg Methadone HCl (Dolophine -) 5 mg PO TID [facility] Last Admin: 04/15/19 06:26 Dose: 5 mg Miscellaneous (Lidoderm Patch Removal) 1 each MC DAILY@2200 [facility] Last Admin: 04/14/19 21:58 Dose: 1 each Morphine Sulfate (Morphine Sulfate) 4 mg IVPUSH Q4H PRN PRN Reason: PAIN LEVEL 6-10 Last Admin: 04/15/19 10:50 Dose: 4 mg Multivit/Ca Carb/B Cmplx/FA/Prenat (Nephro-Guilherme -) 1 tablet PO DAILY [facility] Last Admin: 04/15/19 10:27 Dose: 1 tablet Nifedipine (Procardia Xl -) 90 mg PO DAILY [facility] Last Admin: 04/15/19 10:27 Dose: 90 mg Petrolatum (Vaseline) 1 applic TP DAILY PRN PRN Reason: DRY SKIN Trazodone HCl 400 mg/ (Trazodone HCl 50 mg) 450 mg PO HS [facility] Last Admin: 04/14/19 21:57 Dose: 450 mg Vancomycin HCl (Vancomycin Oral Solution) 125 mg PO Q6HPO [facility] Last Admin: 04/15/19 06:27 Dose: 125 mg Vancomycin HCl (Vancomycin (Pre-Docked)) 1,000 mg IVPB ONCE ONE; Protocol Stop: 04/15/19 15:01 - Objective Vital Signs: Vital Signs Temperature 97.4 F L 04/15/19 09:00 Pulse Rate 79 04/15/19 09:00 Respiratory Rate 18 04/15/19 09:00 Blood Pressure 128/61 04/15/19 09:00 O2 Sat by Pulse Oximetry (%) 96 04/13/19 21:00 Constitutional: Yes: No Distress, Calm Cardiovascular: Yes: S1, S2 Respiratory: Yes: Regular, CTA Bilaterally Gastrointestinal: Yes: Normal Bowel Sounds, Soft Musculoskeletal: Yes: WNL Extremities: Yes: Other Wound/Incision: Yes: Dressing Dry and Intact Neurological: Yes: Alert, Oriented Psychiatric: Yes: Alert, Oriented Labs: CBC, BMP 04/15/19 07:20 04/15/19 07:26 INR, PTT INR 1.27 (0.83-1.09) H 04/11/19 06:00 Assessment/Plan 61 year old male with a past medical history of DM, HTN, ESRD on dialysis (TThS) , left BKA, diabetic neuropathy, hx of MRSA bacteremia, presenting for a sepsis from likely osteomyelitis of R foot. sepsis osteo r foot esrd htn dm gas gangrene mrsa bacteremia Problem List - Problems (1) Diabetes Code(s): E11.9 - TYPE 2 DIABETES MELLITUS WITHOUT COMPLICATIONS (2) Diastolic CHF Code(s): I50.30 - UNSPECIFIED DIASTOLIC (CONGESTIVE) HEART FAILURE (3) ESRD (end stage renal disease) on dialysis Code(s): N18.6 - END STAGE RENAL DISEASE; Z99.2 - DEPENDENCE ON RENAL DIALYSIS (4) Gangrene of right foot Code(s): I96 - GANGRENE, NOT ELSEWHERE CLASSIFIED (5) HTN (hypertension) Code(s): I10 - ESSENTIAL (PRIMARY) HYPERTENSION (6) Status post amputation of right foot Code(s): Z89.431 - ACQUIRED ABSENCE OF RIGHT FOOT (7) Amputation, below knee, unilateral, traumatic Code(s): S88.119A - COMPLETE TRAUM AMP AT LEV BETW KN & ANKL, UNSP LOW LEG, INIT Qualifiers: Encounter type: subsequent encounter Laterality: left Qualified Code(s): S88.112D - Complete traumatic amputation at level between knee and ankle, left lower leg, subsequent encounter (8) Bacteremia due to Gram-positive bacteria Code(s): R78.81 - BACTEREMIA (9) Hemodialysis access, AV graft Code(s): Z99.2 - DEPENDENCE ON RENAL DIALYSIS (10) Osteomyelitis of right foot Code(s): M86.9 - OSTEOMYELITIS, UNSPECIFIED Qualifiers: (11) Peripheral vascular disease due to secondary diabetes Code(s): E13.51 - OTH DIABETES W DIABETIC PERIPHERAL ANGIOPATHY W/O GANGRENE (12) Sepsis Code(s): A41.9 - SEPSIS, UNSPECIFIED ORGANISM Qualifiers: Sepsis type: methicillin susceptible Staphylococcus aureus Qualified Code(s ): A41.01 - Sepsis due to Methicillin susceptible Staphylococcus aureus (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
--- NOTE | 2019-04-15 13:25 | PN ---
Physical Exam: SUBJECTIVE: Patient seen and examined at the bedside. Patient in better mood today and states pain is better controlled. Noted that he no longer has episodes of diarrhea. Denies cp, sob, abd pain, n/v/c/d, fever, chills, headaches, dizziness, lightheadedness. Plan for OR tomorrow. OBJECTIVE: Vital Signs Period Temp Pulse Resp BP Sys/Gutierrez Pulse Ox Last 24 Hr 97.4 F-98.5 F 75-82 18-20 124-150/61-80 GENERAL: The patient is awake, alert, and fully oriented, in no acute distress. HEAD: Normal with no signs of trauma. EYES: PERRL, extraocular movements intact, sclera anicteric, conjunctiva clear. ENT: Oropharynx clear without exudates, moist mucous membranes. NECK: Trachea midline, full range of motion, supple. LUNGS: Breath sounds equal, clear to auscultation bilaterally, no wheezes, no crackles, no accessory muscle use. HEART: Regular rate and rhythm, S1, S2 without murmur, rubs. ABDOMEN: Soft, nontender, nondistended, normoactive bowel sounds, no guarding, no rebound, no masses. EXTREMITIES: Amputation L BKA and R BKA. Dressings dry on R side and in immobilizer. NEUROLOGICAL: Cranial nerves II through XII grossly intact. 5/5 muscle strength upper and lower extremities, bilaterally. L and R BKA. PSYCH: Normal mood and affect. Laboratory Results - last 24 hr 04/14/19 04/14/19 04/14/19 10:00 16:58 21:43 WBC RBC Hgb Hct MCV MCH MCHC RDW Plt Count MPV Sodium Potassium Chloride Carbon Dioxide Anion Gap BUN Creatinine Est GFR (CKD-EPI)AfAm Est GFR (CKD-EPI)NonAf POC Glucometer 295 311 Random Glucose Calcium Phosphorus Magnesium Random Vancomycin Blood Type B POSITIVE Antibody Screen Negative Crossmatch See Detail 04/15/19 04/15/19 04/15/19 06:25 07:20 07:20 WBC 13.0 H RBC 2.78 L Hgb 7.9 L Hct 24.7 L MCV 88.8 MCH 28.5 MCHC 32.1 RDW 16.4 H Plt Count 333 MPV 8.5 Sodium Potassium Chloride Carbon Dioxide Anion Gap BUN Creatinine Est GFR (CKD-EPI)AfAm Est GFR (CKD-EPI)NonAf POC Glucometer 106 Random Glucose Calcium Phosphorus Magnesium Random Vancomycin 17.5 L Blood Type Antibody Screen Crossmatch 04/15/19 07:26 WBC RBC Hgb Hct MCV MCH MCHC RDW Plt Count MPV Sodium 141 Potassium 3.7 Chloride 103 Carbon Dioxide 32 Anion Gap 6 L BUN 27.6 H Creatinine 4.0 H Est GFR (CKD-EPI)AfAm 17.29 Est GFR (CKD-EPI)NonAf 14.92 POC Glucometer Random Glucose 89 Calcium 7.3 L Phosphorus 3.8 Magnesium 2.1 Random Vancomycin Blood Type Antibody Screen Crossmatch Active Medications Generic Name Dose Route Start Last Admin Trade Name Freq PRN Reason Stop Dose Admin Acetaminophen 1,000 mg 04/13/19 02:15 Ofirmev Injection - IVPB Q6H PRN PAIN LEVEL 1-5 Albuterol Sulfate 1 amp 04/13/19 02:15 Ventolin 0.083% Nebulizer Soln - NEB Q4H PRN SHORT OF BREATH/WHEEZING Amino Acids 30 ml 04/13/19 17:30 04/15/19 08:23 Prosource No Carb Liquid Pkt PO 30 ml BID@0800,1730 IGGY Administration Calcium Acetate 1,334 mg 04/14/19 13:05 04/15/19 08:24 Phoslo - PO 1,334 mg TIDCM IGGY Administration Doxazosin Mesylate 4 mg 04/13/19 10:00 04/15/19 10:25 Cardura - PO 4 mg DAILY IGG[facility] Administration Fluticasone Propionate 1 spray 04/13/19 10:00 04/15/19 10:26 Flonase - NS 1 spray DAILY [facility] Administration Gabapentin 300 mg 04/13/19 16:00 04/15/19 06:27 Neurontin - PO 300 mg TID [facility]GGY Administration Piperacillin Sod/Tazobactam 50 mls @ 100 mls/hr 04/15/19 10:00 04/15/19 10:27 Sod 2.25 gm/ Dextrose IVPB 100 mls/hr BID IGG[facility] Administration Protocol Insulin Aspart 1 vial 04/13/19 22:00 04/14/19 21:58 Novolog Vial Sliding Scale - SQ 4 units HS I[facility]Y Administration Protocol Insulin Aspart 1 vial 04/13/19 07:00 04/15/19 06:27 Novolog Vial Sliding Scale - SQ Not Given TIDAC I[facility] Protocol Insulin Detemir 3 units 04/14/19 22:00 04/14/19 21:57 Levemir Vial SQ 3 units HS [facility] Administration Lidocaine 1 patch 04/13/19 10:00 04/15/19 10:25 Lidoderm Patch - TP 1 patch DAILY [facility] Administration Melatonin 10 mg 04/12/19 22:00 04/14/19 21:58 Melatonin PO 10 mg HS [facility] Administration Methadone HCl 5 mg 04/13/19 15:53 04/15/19 06:26 Dolophine - PO 5 mg TID [facility] Administration Miscellaneous 1 each 04/13/19 22:00 04/14/19 21:58 Lidoderm Patch Removal MC 1 each DAILY@2200 [facility] Administration Morphine Sulfate 4 mg 04/13/19 11:15 04/15/19 10:50 Morphine Sulfate IVPUSH 4 mg Q4H PRN Administration PAIN LEVEL 6-10 Multivit/Ca Carb/B Cmplx/FA/Prenat 1 tablet 04/14/19 10:00 04/15/19 10:27 Nephro-Guilherme - PO 1 tablet DAILY [facility] Administration Nifedipine 90 mg 04/13/19 10:00 04/15/19 10:27 Procardia Xl - PO 90 mg DAILY [facility] Administration Petrolatum 1 applic 04/13/19 02:15 Vaseline TP DAILY PRN DRY SKIN Trazodone HCl 400 mg/ 450 mg 04/13/19 22:00 04/14/19 21:57 Trazodone HCl 50 mg PO 450 mg HS [facility] Administration Vancomycin HCl 125 mg 04/13/19 06:00 04/15/19 06:27 Vancomycin Oral Solution PO 125 mg Q6HPO [facility] Administration Vancomycin HCl 1,000 mg 04/15/19 15:00 Vancomycin (Pre-Docked) IVPB 04/15/19 15:01 ONCE ONE Protocol ASSESSMENT/PLAN: Luciano Judge is a 61 year old male with a past medical history of DM, HTN, ESRD on dialysis (TThS), left BKA, diabetic neuropathy, hx of MRSA bacteremia presenting for a sepsis from likely osteomyelitis of R foot. Sepsis from Osteomyelitis - elevated WBC and febrile 100.4, has been afebrile - foot x-ray with emphysematous changes, deformity, lucency, destructive changes of the distal head of third metatarsal, metatarsal head, base of R third proximal phalynx consistent with osteomyelitis - ID consulted, Vancomycin, random vanco levels to guide treatment, will need total 2 weeks of vancomycin - follow random vanco level to redose - restart Zosyn today, prophylaxis for OR procedure with vascular surgery - bacteremia with blood culture growing MRSA, repeat blood cultures negative - wound culture as above, continue to follow - pathology results showing that bone margins clear after BKA, viable skin and soft tissue margins, portion of leg with abscesses - seen by podiatry and has undergone TMA and subsequent BKA guillotine, will undergo closure tomorrow - POD day #5 R BKA - echo ordered to evaluate for ?endocarditis, showing normal LV function, size, function, normal EF, ?poor LV compliance, borderline aortic root dilation, trace mitral regurg, mild pericardial effusion, no evidence of vegetation, further workup as per ID - hyperbaric consult as per podiatry - physical therapy ESRD - dialysis TThS schedule - avoid fluid overload - nephrology consulted, recs appreciated Diarrhea secondary to likely c diff - positive for c diff antigen - continue oral vancomycin 125mg q6h day 5 HTN - continue home meds - cardio consulted, recs appreciated DM - hold Levemir 12 units qAM, due to hypoglycemic episode, may resume if glucose levels stabilize or rise - ISS - BGM - A1c 10.8 - will require tight insulin dosing in the setting of osteomyelitis - endocrinology consulted, recs appreciated Anemia - likely in setting of chronic renal disease - iron studies showing anemia of chronic disease - given Epogen during dialysis - continue to monitor H/H - 2 units of PRBCs given Shoulder pain/chronic pain - methadone 2.5mg tid, confirmed with [facility] and confirmed with patient's pharmacy [facility], last ordered and dispensed on 03/13 for a 30 day course, held currently in favor of morphine for pain control s/p BKA - morphine 4mg q4h prn - methadone increased to 5mg tid as per Dr. Carlos - gabapentin 300mg tid - lidocaine patch - pain management consulted Hx of PTSD - trazodone 450mg qhs Prophylaxis - heparin 5000 units subq bid FEN - no IVF, avoid fluid overload - continue to monitor electrolytes and replete as necessary - renal diet, with supplementation, NPO after midnight Dispo - continue to monitor on Med-surg - will go to SNF after BKA and PT Visit type - Emergency Visit Emergency Visit: Yes ED Registration Date: 04/06/19 Care time: The patient presented to the Emergency Department on the above date and was hospitalized for further evaluation of their emergent condition. - New Patient This patient is new to me today: No - Critical Care Critical Care patient: No
--- NOTE | 2019-04-15 14:02 | PN ---
Progress Note, Physician History of Present Illness: POD#5 post right BKA. - Current Medication List Current Medications: Active Medications Acetaminophen (Ofirmev Injection -) 1,000 mg IVPB Q6H PRN PRN Reason: PAIN LEVEL 1-5 Albuterol Sulfate (Ventolin 0.083% Nebulizer Soln -) 1 amp NEB Q4H PRN PRN Reason: SHORT OF BREATH/WHEEZING Amino Acids (Prosource No Carb Liquid Pkt) 30 ml PO BID@0800,1730 [facility] Last Admin: 04/15/19 08:23 Dose: 30 ml Calcium Acetate (Phoslo -) 1,334 mg PO TIDCM [facility] Last Admin: 04/15/19 08:24 Dose: 1,334 mg Doxazosin Mesylate (Cardura -) 4 mg PO DAILY [facility] Last Admin: 04/15/19 10:25 Dose: 4 mg Fluticasone Propionate (Flonase -) 1 spray NS DAILY [facility] Last Admin: 04/15/19 10:26 Dose: 1 spray Gabapentin (Neurontin -) 300 mg PO TID [facility] Last Admin: 04/15/19 06:27 Dose: 300 mg Piperacillin Sod/Tazobactam (Sod 2.25 gm/ Dextrose) 50 mls @ 100 mls/hr IVPB BID [facility]; Protocol Last Admin: 04/15/19 10:27 Dose: 100 mls/hr Insulin Aspart (Novolog Vial Sliding Scale -) 1 vial SQ HS [facility]; Protocol Last Admin: 04/14/19 21:58 Dose: 4 units Insulin Aspart (Novolog Vial Sliding Scale -) 1 vial SQ TIDAC [facility]; Protocol Last Admin: 04/15/19 06:27 Dose: Not Given Insulin Detemir (Levemir Vial) 3 units SQ HS [facility] Last Admin: 04/14/19 21:57 Dose: 3 units Lidocaine (Lidoderm Patch -) 1 patch TP DAILY [facility] Last Admin: 04/15/19 10:25 Dose: 1 patch Melatonin (Melatonin) 10 mg PO [facility] Last Admin: 04/14/19 21:58 Dose: 10 mg Methadone HCl (Dolophine -) 5 mg PO TID [facility] Last Admin: 04/15/19 06:26 Dose: 5 mg Miscellaneous (Lidoderm Patch Removal) 1 each MC DAILY@2200 [facility] Last Admin: 04/14/19 21:58 Dose: 1 each Morphine Sulfate (Morphine Sulfate) 4 mg IVPUSH Q4H PRN PRN Reason: PAIN LEVEL 6-10 Last Admin: 04/15/19 10:50 Dose: 4 mg Multivit/Ca Carb/B Cmplx/FA/Prenat (Nephro-Guilherme -) 1 tablet PO DAILY [facility] Last Admin: 04/15/19 10:27 Dose: 1 tablet Nifedipine (Procardia Xl -) 90 mg PO DAILY [facility] Last Admin: 04/15/19 10:27 Dose: 90 mg Petrolatum (Vaseline) 1 applic TP DAILY PRN PRN Reason: DRY SKIN Trazodone HCl 400 mg/ (Trazodone HCl 50 mg) 450 mg PO HS [facility] Last Admin: 04/14/19 21:57 Dose: 450 mg Vancomycin HCl (Vancomycin Oral Solution) 125 mg PO Q6HPO [facility] Last Admin: 04/15/19 06:27 Dose: 125 mg Vancomycin HCl (Vancomycin (Pre-Docked)) 1,000 mg IVPB ONCE ONE; Protocol Stop: 04/15/19 15:01 - Objective Vital Signs: Vital Signs Temperature 97.6 F 04/15/19 13:40 Pulse Rate 72 04/15/19 13:40 Respiratory Rate 18 04/15/19 13:40 Blood Pressure 134/67 04/15/19 13:40 O2 Sat by Pulse Oximetry (%) 96 04/13/19 21:00 Constitutional: Yes: No Distress, Calm, Thin Neck: Yes: Supple Cardiovascular: Yes: Regular Rate and Rhythm Respiratory: Yes: Regular, CTA Bilaterally Gastrointestinal: Yes: Normal Bowel Sounds, Soft Extremities: Yes: Amputation (Bilateral BKA) Edema: No Labs: CBC, BMP 04/15/19 07:20 04/15/19 07:26 INR, PTT INR 1.27 (0.83-1.09) H 04/11/19 06:00 Problem List - Problems (1) Cellulitis of right foot Code(s): L03.115 - CELLULITIS OF RIGHT LOWER LIMB (2) ESRD (end stage renal disease) on dialysis Code(s): N18.6 - END STAGE RENAL DISEASE; Z99.2 - DEPENDENCE ON RENAL DIALYSIS (3) Uncontrolled diabetes mellitus Code(s): E11.65 - TYPE 2 DIABETES MELLITUS WITH HYPERGLYCEMIA Qualifiers: Diabetes mellitus type: type 2 Glycemic state: with hyperglycemia Qualified Code(s): E11.65 - Type 2 diabetes mellitus with hyperglycemia (4) Anemia Code(s): D64.9 - ANEMIA, UNSPECIFIED Qualifiers: Anemia type: due to chronic kidney disease Chronic kidney disease stage: on chronic dialysis Qualified Code(s): N18.6 - End stage renal disease; D63.1 - Anemia in chronic kidney disease; Z99.2 - Dependence on renal dialysis (5) Foot infection Code(s): L08.9 - LOCAL INFECTION OF THE SKIN AND SUBCUTANEOUS TISSUE, UNSP (6) Bacteremia due to Gram-positive bacteria Code(s): R78.81 - BACTEREMIA (7) ESRD (end stage renal disease) Code(s): N18.6 - END STAGE RENAL DISEASE (8) Peripheral vascular disease due to secondary diabetes Code(s): E13.51 - OTH DIABETES W DIABETIC PERIPHERAL ANGIOPATHY W/O GANGRENE (9) Diabetic neuropathy Code(s): E11.40 - TYPE 2 DIABETES MELLITUS WITH DIABETIC NEUROPATHY, UNSP Qualifiers: Diabetes mellitus type: type 2 Diabetes mellitus complication detail: diabetic polyneuropathy Qualified Code(s): E11.42 - Type 2 diabetes mellitus with diabetic polyneuropathy (10) Osteomyelitis Code(s): M86.9 - OSTEOMYELITIS, UNSPECIFIED Qualifiers: Osteomyelitis type: other chronic Osteomyelitis location: foot (11) Type 2 diabetes mellitus with foot ulcer Code(s): E11.621 - TYPE 2 DIABETES MELLITUS WITH FOOT ULCER; L97.509 - NON- PRESSURE CHRONIC ULCER OTH PRT UNSP FOOT W UNSP SEVERITY Qualifiers: Diabetes mellitus intermediate project manager insulin use: with chcf use Qualified Code( s): E11.621 - Type 2 diabetes mellitus with foot ulcer; L97.509 - Non-pressure chronic ulcer of other part of unspecified foot with unspecified severity; Z79.4 - longterm (current) use of insulin (12) Below-knee amputation Code(s): S88.119A - COMPLETE TRAUM AMP AT LEV BETW KN & ANKL, UNSP LOW LEG, INIT Assessment/Plan 10/15/2018 Echo: Mod cLVH with normal LV and RV size and fxn, tr-mild MR 09/30/2017 [facility]A: Normal biventricular size and fxn, mild AR, NC, MR, no SIS thrombus or vegetations 1. MRSA bacteremia from osteomyelitis of R foot s/p RLE BKA 2. ESRD on HD TThS, suspected diabetic nephropathy 3. Moderate pericardial effusion referable to uremic pericarditis since resolved 4. Insulin-dependent Type 2 DM c/b neuropathy uncontrolled, A1C 10.8 5. HTN/HCVD 6. PAD 7. Anemia of chronic kidney disease 8. H/o Right IJ/SCV thrombus probably catheter related 9. PAD s/p left BKA 10. History of substance abuse currently on Methadone PLAN: 1. Vanco/Zosyn course per ID, f/u cultures confirms bacteremia clearance, wound care, HBO2. 2. Continue Lopressor 50 bid, Cardura 4 qd, Procardia XL 90 qd 3. Would defer CHAKA unless persistently bacteremic and we are looking for additional source besides established right foot osteomyeleitis, 04/09 bld cx document clearance 4. Monitor Hgb and transfuse as needed to maintain Hgb>7.0.
[2019-04-15] MEDS ORDERED: VANCOMYCIN 1 GM in D5W (PRE-DOCKED) 1,000 MG/250 ML IVPB ONE (15:00)
--- NOTE | 2019-04-15 15:36 | PN ---
Progress Note (short form) - Note Progress Note: Renal follow up for ESRD on HD Seen and examined at the bedside awake and alert reports moderate pain in leg but helped with pain meds no shortness of breath, chest pain, fever or chills for OR tomorrow for AKA Vital Signs Temperature 97.6 F 04/15/19 13:40 Pulse Rate 72 04/15/19 13:40 Respiratory Rate 18 04/15/19 13:40 Blood Pressure 134/67 04/15/19 13:40 O2 Sat by Pulse Oximetry (%) 96 04/15/19 09:00 Intake & Output 04/12/19 04/13/19 04/14/19 04/15/19 23:59 23:59 23:59 23:59 Intake Total 1010 1025 1520 50 Output Total 575 788 6938 150 Balance 860 775 -580 -100 Weight 78.5 kg 80.286 kg 80.371 kg 79.379 kg NAD awake and alert neck supple, no JVD RRR CTA soft NT/ND no LE edema CBC, BMP 04/15/19 07:20 04/15/19 07:26 Current Medications Acetaminophen (Ofirmev Injection -) 1,000 mg IVPB Q6H PRN PRN Reason: PAIN LEVEL 1-5 Albuterol Sulfate (Ventolin 0.083% Nebulizer Soln -) 1 amp NEB Q4H PRN PRN Reason: SHORT OF BREATH/WHEEZING Amino Acids (Prosource No Carb Liquid Pkt) 30 ml PO BID@0800,1730 [facility] Last Admin: 04/15/19 08:23 Dose: 30 ml Calcium Acetate (Phoslo -) 1,334 mg PO TIDCM [facility] Last Admin: 04/15/19 12:21 Dose: 1,334 mg Doxazosin Mesylate (Cardura -) 4 mg PO DAILY [facility] Last Admin: 04/15/19 10:25 Dose: 4 mg Fluticasone Propionate (Flonase -) 1 spray NS DAILY [facility] Last Admin: 04/15/19 10:26 Dose: 1 spray Gabapentin (Neurontin -) 300 mg PO TID [facility] Last Admin: 04/15/19 14:21 Dose: 300 mg Piperacillin Sod/Tazobactam (Sod 2.25 gm/ Dextrose) 50 mls @ 100 mls/hr IVPB BID [facility]; Protocol Last Admin: 04/15/19 10:27 Dose: 100 mls/hr Insulin Aspart (Novolog Vial Sliding Scale -) 1 vial SQ HS [facility]; Protocol Last Admin: 04/14/19 21:58 Dose: 4 units Insulin Aspart (Novolog Vial Sliding Scale -) 1 vial SQ TIDAC [facility]; Protocol Last Admin: 04/15/19 11:20 Dose: Not Given Lidocaine (Lidoderm Patch -) 1 patch TP DAILY [facility] Last Admin: 04/15/19 10:25 Dose: 1 patch Melatonin (Melatonin) 10 mg PO HS [facility] Last Admin: 04/14/19 21:58 Dose: 10 mg Methadone HCl (Dolophine -) 5 mg PO TID [facility] Last Admin: 04/15/19 14:21 Dose: 5 mg Miscellaneous (Lidoderm Patch Removal) 1 each MC DAILY@2200 [facility] Last Admin: 04/14/19 21:58 Dose: 1 each Morphine Sulfate (Morphine Sulfate) 4 mg IVPUSH Q4H PRN PRN Reason: PAIN LEVEL 6-10 Last Admin: 04/15/19 10:50 Dose: 4 mg Multivit/Ca Carb/B Cmplx/FA/Prenat (Nephro-Guilherme -) 1 tablet PO DAILY [facility] Last Admin: 04/15/19 10:27 Dose: 1 tablet Nifedipine (Procardia Xl -) 90 mg PO DAILY [facility] Last Admin: 04/15/19 10:27 Dose: 90 mg Petrolatum (Vaseline) 1 applic TP DAILY PRN PRN Reason: DRY SKIN Trazodone HCl 400 mg/ (Trazodone HCl 50 mg) 450 mg PO HS [facility] Last Admin: 04/14/19 21:57 Dose: 450 mg Vancomycin HCl (Vancomycin Oral Solution) 125 mg PO Q6HPO [facility] Last Admin: 04/15/19 06:27 Dose: 125 mg 63 year old gentleman with history of ESRD on HD (TTS), DM, PVD s/p BKA who presented from home with non-healing foot wound. 1. ESRD on HD 2. Infected foot wound 3. Anemia of CKD 4. Pseudohyponatremia 5. Metabolic acidosis 6. Leukocytosis 7. PVD 8 DM type 2 on insulin no acute indication for dialysis today, next treatment tomorrow Vascular and podiatry follow up, for AKA on 04/16 will maintain on TTS HD schedule while inpatient. Hgb is improved, will continue high dose ADRIAN Thank you Mgiuel Jansen DO
--- NOTE | 2019-04-15 15:39 | PATH ---
Surgical Pathology Report Patient Name: MARIAJOSE MALAVE [facility]. Rec. #: [id number] /Age/Gender: 1955 (Age: 63) / M Account: [id number] Location: [address] [place] [id number]/[facility] Taken: 04/10/2019 Received: 04/10/2019 Reported: 04/15/2019 Physicians: Annabelle Daly M.D. Specimen(s) Received RIGHT LOWER LEG Clinical History Foot infection- MRSA of the right lower extremity Final Diagnosis RIGHT LOWER LEG, AMPUTATION: PORTION OF AMPUTATED LEG SHOWING ACUTE AND CHRONIC INFLAMMATION WITH ABSCESS FORMATION. BONE WITH FOCAL ACUTE OSTEOMYELITIS. BONE MARGIN IS NEGATIVE FOR OSTEOMYELITIS. ARTERIES WITH ATHEROSCLEROSIS. VIABLE SKIN AND SOFT TISSUE MARGINS. Electronically Signed Niranjan Mcdaniel M.D. Gross Description Received fresh labeled "right lower leg," is a 21 cm in length product of a right below the knee amputation. There appears to have been a previous transmetatarsal amputation of all 5 digits. The stump displays an 8.4 x 4.0 cm open wound with exposed bone. There is an additional open wound on the volar surface of the foot. Sectioning of the vasculature reveals focal, segmental moderate to severe atherosclerosis within the anterior tibial artery. Paper Sheeter sections are submitted in 7 cassettes as follows: 1-stump lesion; 2-exposed bone at stump lesion, following decalcification; 3-skin and soft tissue margin; 4-bone margin, following decalcification; 5-anterior tibial artery; 6-posterior tibial artery; 7-dorsalis pedis. /04/14/2019 saudi04/14/2019
[2019-04-15] MEDS ORDERED: INSULIN (NOVOLOG) ASPART 100 UNITS/ML 10ML VIAL ONE ×2 (16:33→21:42)
--- NOTE | 2019-04-15 17:29 | PN ---
Teaching Attending Note Name of Resident: Srini Adame ATTENDING PHYSICIAN STATEMENT I saw and evaluated the patient. I reviewed the resident's note and discussed the case with the resident. I agree with the resident's findings and plan as documented. SUBJECTIVE: Ongoing RLE discomfort s/p guillotine amputation 04/10/19. No fever/ chills. No further diarrhea. OBJECTIVE: Afebrile, Hemodynamically Stable Last Vital Signs Temp Pulse Resp BP Pulse Ox 97.6 F 72 18 134/67 96 04/15/19 13:40 04/15/19 13:40 04/15/19 13:40 04/15/19 13:40 04/15/19 09:00 Heart - S1, S2, RRR Chest - clear to auscultation Abdomen - Soft, non-tender. Bowel Sounds normal Extremities - LLE BKA, RLE in knee immobilizer and surgical site dressed. Neuro - AAO x 3. Moving all extremities. R and L BKA. Laboratory Results - last 24 hr 04/14/19 04/14/19 04/15/19 10:00 21:43 06:25 WBC RBC Hgb Hct MCV MCH MCHC RDW Plt Count MPV Sodium Potassium Chloride Carbon Dioxide Anion Gap BUN Creatinine Est GFR (CKD-EPI)AfAm Est GFR (CKD-EPI)NonAf POC Glucometer 311 106 Random Glucose Calcium Phosphorus Magnesium Random Vancomycin Blood Type B POSITIVE Antibody Screen Negative Crossmatch See Detail Crossmatch IS Only See Detail 04/15/19 04/15/19 04/15/19 07:20 07:20 07:26 WBC 13.0 H RBC 2.78 L Hgb 7.9 L Hct 24.7 L MCV 88.8 MCH 28.5 MCHC 32.1 RDW 16.4 H Plt Count 333 MPV 8.5 Sodium 141 Potassium 3.7 Chloride 103 Carbon Dioxide 32 Anion Gap 6 L BUN 27.6 H Creatinine 4.0 H Est GFR (CKD-EPI)AfAm 17.29 Est GFR (CKD-EPI)NonAf 14.92 POC Glucometer Random Glucose 89 Calcium 7.3 L Phosphorus 3.8 Magnesium 2.1 Random Vancomycin 17.5 L Blood Type Antibody Screen Crossmatch Crossmatch IS Only 04/15/19 16:27 WBC RBC Hgb Hct MCV MCH MCHC RDW Plt Count MPV Sodium Potassium Chloride Carbon Dioxide Anion Gap BUN Creatinine Est GFR (CKD-EPI)AfAm Est GFR (CKD-EPI)NonAf POC Glucometer 200 Random Glucose Calcium Phosphorus Magnesium Random Vancomycin Blood Type Antibody Screen Crossmatch Crossmatch IS Only Current Medications Generic Name Dose Route Start Last Admin Trade Name Freq PRN Reason Stop Dose Admin Acetaminophen 1,000 mg 04/13/19 02:15 Ofirmev Injection - IVPB Q6H PRN PAIN LEVEL 1-5 Albuterol Sulfate 1 amp 04/13/19 02:15 Ventolin 0.083% Nebulizer Soln - NEB Q4H PRN SHORT OF BREATH/WHEEZING Amino Acids 30 ml 04/13/19 17:30 04/15/19 16:29 Prosource No Carb Liquid Pkt PO 30 ml BID@0800,1730 IGGY Administration Calcium Acetate 1,334 mg 04/14/19 13:05 04/15/19 16:29 Phoslo - PO 1,334 mg TIDCM IGGY Administration Doxazosin Mesylate 4 mg 04/13/19 10:00 04/15/19 10:25 Cardura - PO 4 mg DAILY IGGY Administration Epoetin Joe 20,000 unit 04/16/19 06:00 Procrit - IVPUSH 04/16/19 06:01 ONCE ONE Fluticasone Propionate 1 spray 04/13/19 10:00 04/15/19 10:26 Flonase - NS 1 spray DAILY IGGY Administration Gabapentin 300 mg 04/13/19 16:00 04/15/19 14:21 Neurontin - PO 300 mg TID IGGY Administration Piperacillin Sod/Tazobactam 50 mls @ 100 mls/hr 04/15/19 10:00 04/15/19 10:27 Sod 2.25 gm/ Dextrose IVPB 100 mls/hr BID IGGY Administration Protocol Sodium Chloride 250 mls @ 3,000 mls/hr 04/15/19 15:37 Normal Saline - IV 04/16/19 15:37 PRN PRN Hypotension during Dialysis Insulin Aspart 1 vial 04/13/19 22:00 04/14/19 21:58 Novolog Vial Sliding Scale - SQ 4 units HS IGGY Administration Protocol Insulin Aspart 1 vial 04/13/19 07:00 04/15/19 16:35 Novolog Vial Sliding Scale - SQ 2 unit TIDAC IGGY Administration Protocol Lidocaine 1 patch 04/13/19 10:00 04/15/19 10:25 Lidoderm Patch - TP 1 patch DAILY IGGY Administration Melatonin 10 mg 04/12/19 22:00 04/14/19 21:58 Melatonin PO 10 mg HS IGGY Administration Methadone HCl 5 mg 04/13/19 15:53 04/15/19 14:21 Dolophine - PO 5 mg TID IGGY Administration Miscellaneous 1 each 04/13/19 22:00 04/14/19 21:58 Lidoderm Patch Removal MC 1 each DAILY@2200 IGGY Administration Morphine Sulfate 4 mg 04/13/19 11:15 04/15/19 10:50 Morphine Sulfate IVPUSH 4 mg Q4H PRN Administration PAIN LEVEL 6-10 Multivit/Ca Carb/B Cmplx/FA/Prenat 1 tablet 04/14/19 10:00 04/15/19 10:27 Nephro-Guilherme - PO 1 tablet DAILY IGGY Administration Nifedipine 90 mg 04/13/19 10:00 04/15/19 10:27 Procardia Xl - PO 90 mg DAILY IGGY Administration Petrolatum 1 applic 04/13/19 02:15 Vaseline TP DAILY PRN DRY SKIN Trazodone HCl 400 mg/ 450 mg 04/13/19 22:00 04/14/19 21:57 Trazodone HCl 50 mg PO 450 mg HS IGGY Administration Vancomycin HCl 125 mg 04/13/19 06:00 04/15/19 17:12 Vancomycin Oral Solution PO 125 mg Q6HPO IGGY Administration Vancomycin HCl 1,000 mg 04/16/19 08:00 Vancomycin (Pre-Docked) IVPB 04/16/19 08:01 ONCE ONE Protocol Home Medications Medication Instructions Recorded Albuterol 0.083% Nebulizer Coretta 1 amp NEB Q4H PRN #120 amp 08/23/17 [Ventolin 0.083% Nebulizer Soln -] Fluticasone Prop 0.05% Nasal 1 - 2 spray NS DAILY #1 spray.pump 08/23/17 [Flonase -] Doxazosin Mesylate [Cardura -] 4 mg PO DAILY tablet 10/06/17 Gabapentin [Neurontin -] 100 mg PO BID capsule 10/06/17 Insulin Sliding Scale [Novolog 1 vial SQ ACHS units 10/06/17 Vial Sliding Scale -] Lidocaine 5% Patch [Lidoderm -] 1 patch TP DAILY patch 10/06/17 Lidocaine Patch Removal [Lidoderm 1 each MC DAILY@2200 each 10/06/17 Patch Removal] Insulin (Levemir) [Levemir Vial] 12 unit SQ DAILY@0700 04/07/19 Nifedipine ER [Procardia XL -] 90 mg PO DAILY 04/07/19 traZODone HCL [Desyrel -] 450 mg PO HS 04/07/19 ASSESSMENT/PLAN: 63 year old male with PMhx of ESRD on HD (TTS), IDDM, HTN, PVD s/p L BKA, Diabetic neuropathy, prior h/o MRSA bacteremia 09/2017 suspected from HD catheter , Right IJ thrombus in 09/2017 (suspected catheter related) admitted with progressive non-healing right foot swelling, redness, foul smelling discharge, chills. Right foot xray: soft tissue swelling with soft tissue emphysematous changes, deformities consistent with osteomyelitis noted 1. Sepsis secondary to R Foot Osteomyelitis/Cellulitis/Necrotizing fasciitis with Bacteremia POD 5 s/p guillotine amputation - BKA. MRSA/Strep mitis Bacteremia - source likely foot. Wound/Surgical/Bone Cx - polymicrobial as above. Blood Cx - Strep mitis/MRSA, repeat BCx negative Fever resolved, leukocytosis, improved TTE no evidence of vegetations - no indication for CHAKA as per Cardiology. Will defer to ID/Cardio re: optimal Ix for exclude endocarditis. Zosyn resumed in addition to Vanco jodie-operatively. Continue IV Vancomycin for 2 weeks as per ID (dose to be given after HD). Plans to return to OR 04/16 for revision of amputation and flap closure. Jodie-op Zosyn as per ID. NPO MN 04/15 2. ESRD on HD TTS via UE AVF No signs of infection at fistula site On Zosyn/Vancomycin Repeat Blood Cx negative Further Abx titration by ID. 3. DM 2 - uncontrolled, A1C 10.8. Hyperglycemia sec to infection/poor compliance Maintain on Novolog sliding scale. Levemir held. 4. HTN - Continue Nifedipine, Doxazosin 5. ESRD on HD TTS - Nephrology following. 6. Normocytic Anemia likely sec to ESRD - EPO as per Nephrology. H/H 7.9/24.7 s /p jodie-op transfusion of 2 units PRBCs 7. Chronic Pain Syndrome - discussed with pain management - Methadone dose increased to 5mg TID, along with increase in Gabapentin dose. awaiting formal pain management consult. 8. Cdiff Ag positive/Toxin negative - started on Vanomycin PO. ID following. DVT Px - Heparin SQ
--- NOTE | 2019-04-15 19:20 | CONSULT ---
Consult Consult Specialty:: Pain Management Reason for Consultation:: Rt leg Pain - History of Present Illness History of Present Illness: This is 63 yr old male with Rt leg amputation and scheduled for RT BKA c/o severe pain but medications are helping . He had Morphine only 2-3 in 24 hr. He has difficulty in ambulation. - History Source History Provided By: Patient Limitations to Obtaining History: No Limitations - Past Medical History SPOOL HAULER: Yes: Peripheral Neuropathy Cardio/Vascular: Yes: HTN Gastrointestinal: Yes: GERD Renal/: Yes: Renal Failure, Renal Inusuff, Hemodialysis Infectious Disease: Yes: Other (osteomyelitis) Psych: Yes: Depression Musculoskeletal: Yes: Other (chronic pain) Rheumatology: Yes: Other (history of osteomyelitis) Endocrine: Yes: Diabetes Mellitus - Past Surgical History Past Surgical History: Yes: Amputation (transmetatarsal of Left foot) - Alcohol/Substance Use Hx Alcohol Use: No Number of Drinks Daily: 2 (weekends) History of Substance Use: reports: None - Smoking History Smoking history: Former smoker Have you smoked in the past 12 months: Yes Aproximately how many cigarettes per day: 1 If you are a former smoker, when did you quit?: FEB 2019 - Social History Usual Living Arrangement: Alone ADL: Support Services History of Recent Travel: No Home Medications - Allergies Allergies/Adverse Reactions: Allergies Allergy/AdvReac Type Severity Reaction Status Date / Time shellfish derived Allergy Severe "HIVES" Verified 03/18/17 14:03 No Known Drug Allergies Allergy Verified 03/18/17 14:03 - Home Medications Home Medications: Ambulatory Orders Albuterol 0.083% Nebulizer Coretta [Ventolin 0.083% Nebulizer Soln -] 1 amp NEB Q4H PRN #120 amp 08/23/17 Fluticasone Prop 0.05% Nasal [Flonase -] 1 - 2 spray NS DAILY #1 spray.pump Doxazosin Mesylate [Cardura -] 4 mg PO DAILY tablet 10/06/17 Gabapentin [Neurontin -] 100 mg PO BID capsule 10/06/17 Insulin Sliding Scale [Novolog Vial Sliding Scale -] 1 vial SQ ACHS units 10/06 Lidocaine 5% Patch [Lidoderm -] 1 patch TP DAILY patch 10/06/17 Lidocaine Patch Removal [Lidoderm Patch Removal] 1 each MC DAILY@2200 each 02/13 Insulin (Levemir) [Levemir Vial] 12 unit SQ DAILY@0700 04/07/19 Nifedipine ER [Procardia XL -] 90 mg PO DAILY 04/07/19 traZODone HCL [Desyrel -] 450 mg PO HS 04/07/19 Review of Systems - Review of Systems Constitutional: reports: No Symptoms Eyes: reports: No Symptoms HENT: reports: No Symptoms Neck: reports: No Symptoms Cardiovascular: reports: No Symptoms Respiratory: reports: No Symptoms Gastrointestinal: reports: No Symptoms Genitourinary: reports: No Symptoms Integumentary: reports: Wound Neurological: reports: No Symptoms Hematology/Lymphatic: reports: No Symptoms Psychiatric: reports: No Symptoms Pain Intensity: 8 Physical Exam Vital Signs: Vital Signs Temperature 97.6 F 04/15/19 13:40 Pulse Rate 72 04/15/19 13:40 Respiratory Rate 18 04/15/19 13:40 Blood Pressure 134/67 04/15/19 13:40 O2 Sat by Pulse Oximetry (%) 96 04/15/19 09:00 Constitutional: Yes: Calm Eyes: Yes: WNL HENT: Yes: WNL Neck: Yes: WNL Cardiovascular: Yes: WNL Respiratory: Yes: WNL Extremities: Yes: Amputation (RT leg with dressing) Edema: No Wound/Incision: Yes: Other (Dressing) Neurological: Yes: WNL Labs: CBC, BMP 04/15/19 07:20 04/15/19 07:26 Active Medications Generic Name Dose Route Start Last Admin Trade Name Freq PRN Reason Stop Dose Admin Acetaminophen 1,000 mg 04/13/19 02:15 Ofirmev Injection - IVPB Q6H PRN PAIN LEVEL 1-5 Albuterol Sulfate 1 amp 04/13/19 02:15 Ventolin 0.083% Nebulizer Soln - NEB Q4H PRN SHORT OF BREATH/WHEEZING Amino Acids 30 ml 04/13/19 17:30 04/15/19 16:29 Prosource No Carb Liquid Pkt PO 30 ml BID@0800,1730 IGGY Administration Calcium Acetate 1,334 mg 04/14/19 13:05 04/15/19 16:29 Phoslo - PO 1,334 mg TIDCM IGGY Administration Doxazosin Mesylate 4 mg 04/13/19 10:00 04/15/19 10:25 Cardura - PO 4 mg DAILY IGGY Administration Epoetin Joe 20,000 unit 04/16/19 06:00 Procrit - IVPUSH 04/16/19 06:01 ONCE ONE Fluticasone Propionate 1 spray 04/13/19 10:00 04/15/19 10:26 Flonase - NS 1 spray DAILY IGGY Administration Gabapentin 300 mg 04/13/19 16:00 04/15/19 14:21 Neurontin - PO 300 mg TID IGGY Administration Piperacillin Sod/Tazobactam 50 mls @ 100 mls/hr 04/15/19 10:00 04/15/19 10:27 Sod 2.25 gm/ Dextrose IVPB 100 mls/hr BID IGGY Administration Protocol Sodium Chloride 250 mls @ 3,000 mls/hr 04/15/19 15:37 Normal Saline - IV 04/16/19 15:37 PRN PRN Hypotension during Dialysis Insulin Aspart 1 vial 04/13/19 22:00 04/14/19 21:58 Novolog Vial Sliding Scale - SQ 4 units HS IGGY Administration Protocol Insulin Aspart 1 vial 04/13/19 07:00 04/15/19 16:35 Novolog Vial Sliding Scale - SQ 2 unit TIDAC IGGY Administration Protocol Lidocaine 1 patch 04/13/19 10:00 04/15/19 10:25 Lidoderm Patch - TP 1 patch DAILY IGGY Administration Melatonin 10 mg 04/12/19 22:00 04/14/19 21:58 Melatonin PO 10 mg HS IGGY Administration Methadone HCl 5 mg 04/13/19 15:53 04/15/19 14:21 Dolophine - PO 5 mg TID IGGY Administration Miscellaneous 1 each 04/13/19 22:00 04/14/19 21:58 Lidoderm Patch Removal MC 1 each DAILY@2200 IGGY Administration Morphine Sulfate 4 mg 04/13/19 11:15 04/15/19 10:50 Morphine Sulfate IVPUSH 4 mg Q4H PRN Administration PAIN LEVEL 6-10 Multivit/Ca Carb/B Cmplx/FA/Prenat 1 tablet 04/14/19 10:00 04/15/19 10:27 Nephro-Guilherme - PO 1 tablet DAILY IGGY Administration Nifedipine 90 mg 04/13/19 10:00 04/15/19 10:27 Procardia Xl - PO 90 mg DAILY IGGY Administration Petrolatum 1 applic 04/13/19 02:15 Vaseline TP DAILY PRN DRY SKIN Trazodone HCl 400 mg/ 450 mg 04/13/19 22:00 04/14/19 21:57 Trazodone HCl 50 mg PO 450 mg HS IGGY Administration Vancomycin HCl 125 mg 04/13/19 06:00 04/15/19 17:12 Vancomycin Oral Solution PO 125 mg Q6HPO IGGY Administration Vancomycin HCl 1,000 mg 04/16/19 08:00 Vancomycin (Pre-Docked) IVPB 04/16/19 08:01 ONCE ONE Protocol Assessment/Plan Discussed in detail and answered all the questions 1. Continue current care 2. Patient has pain control with current medication 3. Patient was very comfortable on bed. 4. continue current medications. Please call me if pain is not controlled. Thanks for your kind referral Dr. Carlos [phone].
[2019-04-15] MEDS: TRAZODONE HCL PO SCH (21:57)
[2019-04-15] MEDS: LIDOCAINE PATCH REMOVAL MC SCH (21:58)
[2019-04-15] MEDS: MELATONIN 5 MG TABLETS PO SCH (21:58)
[2019-04-16] MEDS: GABAPENTIN 300 MG CAPSULE (FP) PO SCH ×3 (06:15→21:42)
[2019-04-16] MEDS: VANCOMYCIN 250 MG/5 ML ORAL SOLUTION PO SCH ×3 (06:15→17:03)
[2019-04-16] MEDS: INSULIN SLIDING SCALE (NOVOLOG) 1 VIAL SQ SCH ×4 (06:15→21:53)
[2019-04-16] MEDS: METHADONE HCL 5 MG TABLET PO SCH ×3 (06:15→21:43)
[2019-04-16] MEDS: morphine SULFATE 4 MG/ML VIAL IVPUSH PRN (06:44)
[2019-04-16] MEDS ORDERED: SODIUM CHLORIDE 250 ML IV PRN (07:56)
[2019-04-16] MEDS ORDERED: EPOETIN ALFA 20,000 UNIT/1 ML VIAL IVPUSH ONE (08:30)
[2019-04-16] MEDS ORDERED: VANCOMYCIN 1 GM in D5W (PRE-DOCKED) 1,000 MG/250 ML IVPB ONE (08:30)
[2019-04-16 08:33] LABS: HEMATOCRIT 25.5 % (35.4-49); HEMOGLOBIN 8.1 GM/dL (11.7-16.9); MCH 28.2 pg (25.7-33.7); MCHC 31.6 g/dl (32.0-35.9); MEAN CELL VOLUME 89.3 fl (80-96); MEAN PLT VOLUME 8.9 fl (7.5-11.1); PLATELET COUNT 413 K/MM3 (134-434); RBC 2.86 M/mm3 (4.00-5.60); RDW 16.3 % (11.9-15.9); WHITE BLOOD COUNT 14.5 K/mm3 (4.0-10.0)
[2019-04-16 08:46] LABS: INR 1.15 (0.83-1.09); PROTHROMBIN TIME (PATIENT) 13.6 SEC (9.7-13.0)
[2019-04-16 09:11] LABS: BLOOD UREA NITROGEN 39.1 mg/dL (7-18); CALCIUM 7.8 mg/dL (8.5-10.1); CREATININE 5.1 mg/dL (0.55-1.3); MAGNESIUM 2.2 mg/dL (1.8-2.4); PHOSPHOROUS 4.9 mg/dL (2.5-4.9)
--- NOTE | 2019-04-16 09:35 | PN ---
Progress Note (short form) - Note Progress Note: VA[facility] Surgery Pt in HD currently. Called for pt to come to OR for BKA Anesthesia prefers that we do pt's operation on a non HD day. Pt rebooked for chris for bka revision. Renal diet started. NPO after midnight. Al Daly DO
--- NOTE | 2019-04-16 11:37 | PN ---
Progress Note, Physician History of Present Illness: POD#6 post right BKA. Undergoing HD. Pain adequately controlled. - Current Medication List Current Medications: Active Medications Acetaminophen (Ofirmev Injection -) 1,000 mg IVPB Q6H PRN PRN Reason: PAIN LEVEL 1-5 Albuterol Sulfate (Ventolin 0.083% Nebulizer Soln -) 1 amp NEB Q4H PRN PRN Reason: SHORT OF BREATH/WHEEZING Amino Acids (Prosource No Carb Liquid Pkt) 30 ml PO BID@0800,1730 [facility] Last Admin: 04/15/19 16:29 Dose: 30 ml Calcium Acetate (Phoslo -) 1,334 mg PO TIDCM [facility] Last Admin: 04/15/19 16:29 Dose: 1,334 mg Doxazosin Mesylate (Cardura -) 4 mg PO DAILY [facility] Last Admin: 04/15/19 10:25 Dose: 4 mg Fluticasone Propionate (Flonase -) 1 spray NS DAILY [facility] Last Admin: 04/15/19 10:26 Dose: 1 spray Gabapentin (Neurontin -) 300 mg PO TID [facility] Last Admin: 04/16/19 06:15 Dose: 300 mg Piperacillin Sod/Tazobactam (Sod 2.25 gm/ Dextrose) 50 mls @ 100 mls/hr IVPB BID [facility]; Protocol Last Admin: 04/15/19 21:58 Dose: 100 mls/hr Insulin Aspart (Novolog Vial Sliding Scale -) 1 vial SQ HS [facility]; Protocol Last Admin: 04/15/19 21:58 Dose: 3 units Insulin Aspart (Novolog Vial Sliding Scale -) 1 vial SQ TIDAC [facility]; Protocol Last Admin: 04/16/19 06:15 Dose: 3 unit Lidocaine (Lidoderm Patch -) 1 patch TP DAILY [facility] Last Admin: 04/15/19 10:25 Dose: 1 patch Melatonin (Melatonin) 10 mg PO HS [facility] Last Admin: 04/15/19 21:58 Dose: 10 mg Methadone HCl (Dolophine -) 5 mg PO TID [facility] Last Admin: 04/16/19 06:15 Dose: 5 mg Miscellaneous (Lidoderm Patch Removal) 1 each MC DAILY@2200 [facility] Last Admin: 04/15/19 21:58 Dose: 1 each Morphine Sulfate (Morphine Sulfate) 4 mg IVPUSH Q4H PRN PRN Reason: PAIN LEVEL 6-10 Last Admin: 04/16/19 06:44 Dose: 4 mg Multivit/Ca Carb/B Cmplx/FA/Prenat (Nephro-Guilherme -) 1 tablet PO DAILY [facility] Last Admin: 04/15/19 10:27 Dose: 1 tablet Nifedipine (Procardia Xl -) 90 mg PO DAILY [facility] Last Admin: 04/15/19 10:27 Dose: 90 mg Petrolatum (Vaseline) 1 applic TP DAILY PRN PRN Reason: DRY SKIN Trazodone HCl 400 mg/ (Trazodone HCl 50 mg) 450 mg PO HS [facility] Last Admin: 04/15/19 21:57 Dose: 450 mg Vancomycin HCl (Vancomycin Oral Solution) 125 mg PO Q6HPO [facility] Last Admin: 04/16/19 06:15 Dose: 125 mg - Objective Vital Signs: Vital Signs Temperature 98.2 F 04/16/19 07:25 Pulse Rate 70 04/16/19 10:00 Respiratory Rate 18 04/16/19 10:00 Blood Pressure 117/55 L 04/16/19 10:00 O2 Sat by Pulse Oximetry (%) 95 04/15/19 21:00 Constitutional: Yes: No Distress, Calm Neck: Yes: Supple Cardiovascular: Yes: Regular Rate and Rhythm Respiratory: Yes: Regular, CTA Bilaterally Gastrointestinal: Yes: Normal Bowel Sounds, Soft Extremities: Yes: Amputation (Bilateral BKA) Edema: No Labs: CBC, BMP 04/16/19 07:45 04/16/19 07:45 INR, PTT INR 1.15 (0.83-1.09) H 04/16/19 07:45 Problem List - Problems (1) Cellulitis of right foot Code(s): L03.115 - CELLULITIS OF RIGHT LOWER LIMB (2) ESRD (end stage renal disease) on dialysis Code(s): N18.6 - END STAGE RENAL DISEASE; Z99.2 - DEPENDENCE ON RENAL DIALYSIS (3) Uncontrolled diabetes mellitus Code(s): E11.65 - TYPE 2 DIABETES MELLITUS WITH HYPERGLYCEMIA Qualifiers: Diabetes mellitus type: type 2 Glycemic state: with hyperglycemia Qualified Code(s): E11.65 - Type 2 diabetes mellitus with hyperglycemia (4) Anemia Code(s): D64.9 - ANEMIA, UNSPECIFIED Qualifiers: Anemia type: due to chronic kidney disease Chronic kidney disease stage: on chronic dialysis Qualified Code(s): N18.6 - End stage renal disease; D63.1 - Anemia in chronic kidney disease; Z99.2 - Dependence on renal dialysis (5) Foot infection Code(s): L08.9 - LOCAL INFECTION OF THE SKIN AND SUBCUTANEOUS TISSUE, UNSP (6) Bacteremia due to Gram-positive bacteria Code(s): R78.81 - BACTEREMIA (7) ESRD (end stage renal disease) Code(s): N18.6 - END STAGE RENAL DISEASE (8) Peripheral vascular disease due to secondary diabetes Code(s): E13.51 - OTH DIABETES W DIABETIC PERIPHERAL ANGIOPATHY W/O GANGRENE (9) Diabetic neuropathy Code(s): E11.40 - TYPE 2 DIABETES MELLITUS WITH DIABETIC NEUROPATHY, UNSP Qualifiers: Diabetes mellitus type: type 2 Diabetes mellitus complication detail: diabetic polyneuropathy Qualified Code(s): E11.42 - Type 2 diabetes mellitus with diabetic polyneuropathy (10) Osteomyelitis Code(s): M86.9 - OSTEOMYELITIS, UNSPECIFIED Qualifiers: Osteomyelitis type: other chronic Osteomyelitis location: foot (11) Type 2 diabetes mellitus with foot ulcer Code(s): E11.621 - TYPE 2 DIABETES MELLITUS WITH FOOT ULCER; L97.509 - NON- PRESSURE CHRONIC ULCER OT PRT UNSP FOOT W UNSP SEVERITY Qualifiers: Diabetes mellitus mcfp insulin use: with termite control service representative use Qualified Code( s): E11.621 - Type 2 diabetes mellitus with foot ulcer; L97.509 - Non-pressure chronic ulcer of other part of unspecified foot with unspecified severity; Z79.4 - termite control service representative (current) use of insulin (12) Below-knee amputation Code(s): S88.119A - COMPLETE TRAUM AMP AT LEV BETW KN & ANKL, UNSP LOW LEG, INIT Assessment/Plan 10/15/2018 Echo: Mod cLVH with normal LV and RV size and fxn, tr-mild MR 09/30/2017 CHAKA: Normal biventricular size and fxn, mild AR, IL, MR, no SIS thrombus or vegetations 1. MRSA bacteremia from osteomyelitis of R foot s/p RLE BKA plan for BKA revision tomorrow 2. ESRD on HD TThS, suspected diabetic nephropathy 3. Moderate pericardial effusion referable to uremic pericarditis since resolved 4. Insulin-dependent Type 2 DM c/b neuropathy uncontrolled, A1C 10.8 5. HTN/HCVD 6. PAD 7. Anemia of chronic kidney disease 8. H/o Right IJ/SCV thrombus probably catheter related 9. PAD s/p left BKA 10. History of substance abuse currently on Methadone PLAN: 1. Vanco/Zosyn course per ID, f/u cultures confirms bacteremia clearance, wound care, HBO2. 2. Continue Cardura 4 qd, Procardia XL 90 qd 3. Would defer CHAKA unless persistently bacteremic and we are looking for additional source besides established right foot osteomyeleitis, 04/09 bld cx document clearance 4. Monitor Hgb and transfuse as needed to maintain Hgb>7.0, continue high dose ADRIAN 5. TThS HD per renal
--- NOTE | 2019-04-16 12:15 | PN ---
Teaching Attending Note Name of Resident: Srini Adame ATTENDING PHYSICIAN STATEMENT I saw and evaluated the patient. I reviewed the resident's note and discussed the case with the resident. I agree with the resident's findings and plan as documented. SUBJECTIVE: Comfortable POD 6 s/p BKA guillotine amputation 04/10/19 RLE. No fever/chills. No further diarrhea. OBJECTIVE: Afebrile, Hemodynamically Stable. On HD. Last Vital Signs Temp Pulse Resp BP Pulse Ox 98.2 F 70 18 117/55 L 95 04/16/19 07:25 04/16/19 10:00 04/16/19 10:00 04/16/19 10:00 04/15/19 21:00 Heart - S1, S2, RRR Chest - clear to auscultation Abdomen - Soft, non-tender. Bowel Sounds normal Extremities - LLE BKA, RLE in knee immobilizer and surgical site dressed. Neuro - AAO x 3. Moving all extremities. R and L BKA. Laboratory Results - last 24 hr 04/14/19 04/15/19 04/15/19 10:00 16:27 21:55 WBC RBC Hgb Hct MCV MCH MCHC RDW Plt Count MPV PT with INR INR PTT (Actin FS) Sodium Potassium Chloride Carbon Dioxide Anion Gap BUN Creatinine Est GFR (CKD-EPI)AfAm Est GFR (CKD-EPI)NonAf POC Glucometer 200 277 Random Glucose Calcium Phosphorus Magnesium Random Vancomycin Blood Type B POSITIVE Antibody Screen Negative Crossmatch See Detail Crossmatch IS Only See Detail 04/16/19 04/16/19 04/16/19 06:13 07:45 07:45 WBC 14.5 H RBC 2.86 L Hgb 8.1 L Hct 25.5 L MCV 89.3 MCH 28.2 MCHC 31.6 L RDW 16.3 H Plt Count 413 D MPV 8.9 PT with INR 13.60 H INR 1.15 H PTT (Actin FS) 38.0 H Sodium Potassium Chloride Carbon Dioxide Anion Gap BUN Creatinine Est GFR (CKD-EPI)AfAm Est GFR (CKD-EPI)NonAf POC Glucometer 236 Random Glucose Calcium Phosphorus Magnesium Random Vancomycin Blood Type Antibody Screen Crossmatch Crossmatch IS Only 04/16/19 04/16/19 07:45 08:40 WBC RBC Hgb Hct MCV MCH MCHC RDW Plt Count MPV PT with INR INR PTT (Actin FS) Sodium 137 Potassium 4.0 Chloride 99 Carbon Dioxide 32 Anion Gap 6 L BUN 39.1 H Creatinine 5.1 H Est GFR (CKD-EPI)AfAm 12.89 Est GFR (CKD-EPI)NonAf 11.12 POC Glucometer Random Glucose 213 H Calcium 7.8 L Phosphorus 4.9 Magnesium 2.2 Random Vancomycin 16.1 L Blood Type Antibody Screen Crossmatch Crossmatch IS Only Current Medications Generic Name Dose Route Start Last Admin Trade Name Freq PRN Reason Stop Dose Admin Acetaminophen 1,000 mg 04/13/19 02:15 Ofirmev Injection - IVPB Q6H PRN PAIN LEVEL 1-5 Albuterol Sulfate 1 amp 04/13/19 02:15 Ventolin 0.083% Nebulizer Soln - NEB Q4H PRN SHORT OF BREATH/WHEEZING Amino Acids 30 ml 04/13/19 17:30 04/15/19 16:29 Prosource No Carb Liquid Pkt PO 30 ml BID@0800,1730 [facility] Administration Calcium Acetate 1,334 mg 04/14/19 13:05 04/15/19 16:29 Phoslo - PO 1,334 mg TIDCM [facility] Administration Doxazosin Mesylate 4 mg 04/13/19 10:00 04/15/19 10:25 Cardura - PO 4 mg DAILY [facility] Administration Fluticasone Propionate 1 spray 04/13/19 10:00 04/15/19 10:26 Flonase - NS 1 spray DAILY [facility] Administration Gabapentin 300 mg 04/13/19 16:00 04/16/19 06:15 Neurontin - PO 300 mg TID [facility] Administration Piperacillin Sod/Tazobactam 50 mls @ 100 mls/hr 04/15/19 10:00 04/15/19 21:58 Sod 2.25 gm/ Dextrose IVPB 100 mls/hr BID [facility] Administration Protocol Insulin Aspart 1 vial 04/13/19 22:00 04/15/19 21:58 Novolog Vial Sliding Scale - SQ 3 units HS [facility] Administration Protocol Insulin Aspart 1 vial 04/13/19 07:00 04/16/19 06:15 Novolog Vial Sliding Scale - SQ 3 unit TIDAC [facility] Administration Protocol Lidocaine 1 patch 04/13/19 10:00 04/15/19 10:25 Lidoderm Patch - TP 1 patch DAILY [facility] Administration Melatonin 10 mg 04/12/19 22:00 04/15/19 21:58 Melatonin PO 10 mg HS [facility] Administration Methadone HCl 5 mg 04/13/19 15:53 04/16/19 06:15 Dolophine - PO 5 mg TID [facility] Administration Miscellaneous 1 each 04/13/19 22:00 04/15/19 21:58 Lidoderm Patch Removal MC 1 each DAILY@2200 [facility] Administration Morphine Sulfate 4 mg 04/13/19 11:15 04/16/19 06:44 Morphine Sulfate IVPUSH 4 mg Q4H PRN Administration PAIN LEVEL 6-10 Multivit/Ca Carb/B Cmplx/FA/Prenat 1 tablet 04/14/19 10:00 04/15/19 10:27 Nephro-Guilherme - PO 1 tablet DAILY [facility] Administration Nifedipine 90 mg 04/13/19 10:00 04/15/19 10:27 Procardia Xl - PO 90 mg DAILY [facility] Administration Petrolatum 1 applic 04/13/19 02:15 Vaseline TP DAILY PRN DRY SKIN Trazodone HCl 400 mg/ 450 mg 04/13/19 22:00 04/15/19 21:57 Trazodone HCl 50 mg PO 450 mg HS [facility] Administration Vancomycin HCl 125 mg 04/13/19 06:00 04/16/19 06:15 Vancomycin Oral Solution PO 125 mg Q6HPO [facility] Administration Home Medications Medication Instructions Recorded Albuterol 0.083% Nebulizer Coretta 1 amp NEB Q4H PRN #120 amp 08/23/17 [Ventolin 0.083% Nebulizer Soln -] Fluticasone Prop 0.05% Nasal 1 - 2 spray NS DAILY #1 spray.pump 08/23/17 [Flonase -] Doxazosin Mesylate [Cardura -] 4 mg PO DAILY tablet 10/06/17 Gabapentin [Neurontin -] 100 mg PO BID capsule 10/06/17 Insulin Sliding Scale [Novolog 1 vial SQ ACHS units 10/06/17 Vial Sliding Scale -] Lidocaine 5% Patch [Lidoderm -] 1 patch TP DAILY patch 10/06/17 Lidocaine Patch Removal [Lidoderm 1 each MC DAILY@2200 each 10/06/17 Patch Removal] Insulin (Levemir) [Levemir Vial] 12 unit SQ DAILY@0700 04/07/19 Nifedipine ER [Procardia XL -] 90 mg PO DAILY 04/07/19 traZODone HCL [Desyrel -] 450 mg PO HS 04/07/19 ASSESSMENT/PLAN: 63 year old male with PMhx of ESRD on HD (TTS), IDDM, HTN, PVD s/p L BKA, Diabetic neuropathy, prior h/o MRSA bacteremia 09/2017 suspected from HD catheter , Right IJ thrombus in 09/2017 (suspected catheter related) admitted with progressive non-healing right foot swelling, redness, foul smelling discharge, chills. Right foot xray: soft tissue swelling with soft tissue emphysematous changes, deformities consistent with osteomyelitis noted 1. Sepsis secondary to R Foot Osteomyelitis/Cellulitis/Necrotizing fasciitis with Bacteremia POD 6 s/p guillotine amputation - BKA. MRSA/Strep mitis Bacteremia - source likely foot. Wound/Surgical/Bone Cx - polymicrobial as above. Blood Cx - Strep mitis/MRSA, repeat BCx negative Fever resolved, leukocytosis persistent TTE no evidence of vegetations - no indication for CHAKA as per Cardiology. Will defer to ID/Cardio re: optimal Ix for exclude endocarditis. Zosyn resumed in addition to Vanco jodie-operatively. Continue IV Vancomycin for 2 weeks as per ID (dose to be given after HD). Plans to return to OR 04/16 for revision of amputation and flap closure cancelled by Anesthesia due to patient being placed on HD today, which is his regularly scheduled HD day. Discussed with Dr. Daly. Jodie-op Zosyn as per ID. NPO again MN 04/16 2. ESRD on HD TTS via UE AVF No signs of infection at fistula site On Zosyn/Vancomycin Repeat Blood Cx negative Further Abx titration by ID. 3. DM 2 - uncontrolled, A1C 10.8. Hyperglycemia sec to infection/poor compliance Maintain on Novolog sliding scale. Levemir held. 4. HTN - Continue Nifedipine, Doxazosin 5. ESRD on HD TTS - Nephrology following. 6. Normocytic Anemia likely sec to ESRD - EPO as per Nephrology. H/H 8.25.5 s /p jodie-op transfusion of 2 units PRBCs 7. Chronic Pain Syndrome - discussed with pain management - Methadone dose increased to 5mg TID, along with increase in Gabapentin dose as per Pain Management recommendations. 8. Cdiff Ag positive/Toxin negative - diarrhea resolved. Continue Vanomycin PO. ID following. DVT Px - Heparin SQ
--- NOTE | 2019-04-16 12:25 | PN ---
Progress Note (short form) - Note Progress Note: Renal follow up for ESRD on HD Seen and examined during dialysis awake and alert BP stable, goal UF is 2L no shortness of breath, chest pain, fever or chills Vital Signs Temperature 98.2 F 04/16/19 07:25 Pulse Rate 70 04/16/19 10:00 Respiratory Rate 18 04/16/19 10:00 Blood Pressure 117/55 L 04/16/19 10:00 O2 Sat by Pulse Oximetry (%) 95 04/15/19 21:00 Intake & Output 04/13/19 04/14/19 04/15/19 04/16/19 23:59 23:59 23:59 23:59 Intake Total 1025 1520 250 200 Output Total 250 2100 150 Balance 775 -580 100 200 Weight 80.286 kg 80.371 kg 79.379 kg 79.124 kg NAD awake and alert neck supple, no JVD RRR CTA soft NT/ND no LE edema CBC, BMP 04/16/19 07:45 04/16/19 07:45 Current Medications Acetaminophen (Ofirmev Injection -) 1,000 mg IVPB Q6H PRN PRN Reason: PAIN LEVEL 1-5 Albuterol Sulfate (Ventolin 0.083% Nebulizer Soln -) 1 amp NEB Q4H PRN PRN Reason: SHORT OF BREATH/WHEEZING Amino Acids (Prosource No Carb Liquid Pkt) 30 ml PO BID@0800,1730 [facility] Last Admin: 04/15/19 16:29 Dose: 30 ml Calcium Acetate (Phoslo -) 1,334 mg PO TIDCM [facility] Last Admin: 04/15/19 16:29 Dose: 1,334 mg Doxazosin Mesylate (Cardura -) 4 mg PO DAILY [facility] Last Admin: 04/15/19 10:25 Dose: 4 mg Fluticasone Propionate (Flonase -) 1 spray NS DAILY [facility] Last Admin: 04/15/19 10:26 Dose: 1 spray Gabapentin (Neurontin -) 300 mg PO TID [facility] Last Admin: 04/16/19 06:15 Dose: 300 mg Piperacillin Sod/Tazobactam (Sod 2.25 gm/ Dextrose) 50 mls @ 100 mls/hr IVPB BID [facility]; Protocol Last Admin: 04/15/19 21:58 Dose: 100 mls/hr Insulin Aspart (Novolog Vial Sliding Scale -) 1 vial SQ HS [facility]; Protocol Last Admin: 04/15/19 21:58 Dose: 3 units Insulin Aspart (Novolog Vial Sliding Scale -) 1 vial SQ TIDAC [facility]; Protocol Last Admin: 04/16/19 06:15 Dose: 3 unit Lidocaine (Lidoderm Patch -) 1 patch TP DAILY [facility] Last Admin: 04/15/19 10:25 Dose: 1 patch Melatonin (Melatonin) 10 mg PO HS [facility] Last Admin: 04/15/19 21:58 Dose: 10 mg Methadone HCl (Dolophine -) 5 mg PO TID [facility] Last Admin: 04/16/19 06:15 Dose: 5 mg Miscellaneous (Lidoderm Patch Removal) 1 each MC DAILY@2200 [facility] Last Admin: 04/15/19 21:58 Dose: 1 each Morphine Sulfate (Morphine Sulfate) 4 mg IVPUSH Q4H PRN PRN Reason: PAIN LEVEL 6-10 Last Admin: 04/16/19 06:44 Dose: 4 mg Multivit/Ca Carb/B Cmplx/FA/Prenat (Nephro-Guilherme -) 1 tablet PO DAILY [facility] Last Admin: 04/15/19 10:27 Dose: 1 tablet Nifedipine (Procardia Xl -) 90 mg PO DAILY [facility] Last Admin: 04/15/19 10:27 Dose: 90 mg Petrolatum (Vaseline) 1 applic TP DAILY PRN PRN Reason: DRY SKIN Trazodone HCl 400 mg/ (Trazodone HCl 50 mg) 450 mg PO HS [facility] Last Admin: 04/15/19 21:57 Dose: 450 mg Vancomycin HCl (Vancomycin Oral Solution) 125 mg PO Q6HPO [facility] Last Admin: 04/16/19 06:15 Dose: 125 mg 63 year old gentleman with history of ESRD on HD (TTS), DM, PVD s/p BKA who presented from home with non-healing foot wound. 1. ESRD on HD 2. Infected foot wound 3. Anemia of CKD 4. Pseudohyponatremia 5. Metabolic acidosis 6. Leukocytosis 7. PVD 8 DM type 2 on insulin tolerating dialysis Vascular and podiatry follow up, for AKA, deferred to tomorrow will maintain on TTS HD schedule while inpatient. Hgb is improved, will continue high dose ADRIAN to get Vanco dosed today Thank you Miguel Jansen DO
--- NOTE | 2019-04-16 12:40 | PN ---
Physical Exam: SUBJECTIVE: Patient seen and examined at the bedside. Noted that his pain was better controlled. Denied cp, sob, abd pain, n/v/c/d, headaches, dizziness, lightheadedness, fever, chills, numbness, tingling. OBJECTIVE: Vital Signs Period Temp Pulse Resp BP Sys/Gutierrez Pulse Ox Last 24 Hr 9.6 F-98.2 F 70-78 18-20 102-151/55-76 95 GENERAL: The patient is awake, alert, and fully oriented, in no acute distress. HEAD: Normal with no signs of trauma. EYES: PERRL, extraocular movements intact, sclera anicteric, conjunctiva clear. ENT: Oropharynx clear without exudates, moist mucous membranes. NECK: Trachea midline, full range of motion, supple. LUNGS: Breath sounds equal, clear to auscultation bilaterally, no wheezes, no crackles, no accessory muscle use. HEART: Regular rate and rhythm, S1, S2 without murmur, rubs. ABDOMEN: Soft, nontender, nondistended, normoactive bowel sounds, no guarding, no rebound, no masses. EXTREMITIES: Amputation L BKA and R BKA. Dressings dry on R side and in immobilizer. NEUROLOGICAL: Cranial nerves II through XII grossly intact. 5/5 muscle strength upper and lower extremities, bilaterally. L and R BKA. PSYCH: Normal mood and affect. Laboratory Results - last 24 hr 04/14/19 04/15/19 04/15/19 10:00 16:27 21:55 WBC RBC Hgb Hct MCV MCH MCHC RDW Plt Count MPV PT with INR INR PTT (Actin FS) Sodium Potassium Chloride Carbon Dioxide Anion Gap BUN Creatinine Est GFR (CKD-EPI)AfAm Est GFR (CKD-EPI)NonAf POC Glucometer 200 277 Random Glucose Calcium Phosphorus Magnesium Random Vancomycin Blood Type B POSITIVE Antibody Screen Negative Crossmatch See Detail Crossmatch IS Only See Detail 04/16/19 04/16/19 04/16/19 06:13 07:45 07:45 WBC 14.5 H RBC 2.86 L Hgb 8.1 L Hct 25.5 L MCV 89.3 MCH 28.2 MCHC 31.6 L RDW 16.3 H Plt Count 413 D MPV 8.9 PT with INR 13.60 H INR 1.15 H PTT (Actin FS) 38.0 H Sodium Potassium Chloride Carbon Dioxide Anion Gap BUN Creatinine Est GFR (CKD-EPI)AfAm Est GFR (CKD-EPI)NonAf POC Glucometer 236 Random Glucose Calcium Phosphorus Magnesium Random Vancomycin Blood Type Antibody Screen Crossmatch Crossmatch IS Only 04/16/19 04/16/19 07:45 08:40 WBC RBC Hgb Hct MCV MCH MCHC RDW Plt Count MPV PT with INR INR PTT (Actin FS) Sodium 137 Potassium 4.0 Chloride 99 Carbon Dioxide 32 Anion Gap 6 L BUN 39.1 H Creatinine 5.1 H Est GFR (CKD-EPI)AfAm 12.89 Est GFR (CKD-EPI)NonAf 11.12 POC Glucometer Random Glucose 213 H Calcium 7.8 L Phosphorus 4.9 Magnesium 2.2 Random Vancomycin 16.1 L Blood Type Antibody Screen Crossmatch Crossmatch IS Only Active Medications Generic Name Dose Route Start Last Admin Trade Name Freq PRN Reason Stop Dose Admin Albuterol Sulfate 1 amp 04/13/19 02:15 Ventolin 0.083% Nebulizer Soln - NEB Q4H PRN SHORT OF BREATH/WHEEZING Amino Acids 30 ml 04/13/19 17:30 04/15/19 16:29 Prosource No Carb Liquid Pkt PO 30 ml BID@0800,1730 IGGY Administration Calcium Acetate 1,334 mg 04/14/19 13:05 04/15/19 16:29 Phoslo - PO 1,334 mg TIDCM IGGY Administration Doxazosin Mesylate 4 mg 04/13/19 10:00 04/15/19 10:25 Cardura - PO 4 mg DAILY IGGY Administration Fluticasone Propionate 1 spray 04/13/19 10:00 04/15/19 10:26 Flonase - NS 1 spray DAILY IGGY Administration Gabapentin 300 mg 04/13/19 16:00 04/16/19 06:15 Neurontin - PO 300 mg TID IGGY Administration Piperacillin Sod/Tazobactam 50 mls @ 100 mls/hr 04/15/19 10:00 04/15/19 21:58 Sod 2.25 gm/ Dextrose IVPB 100 mls/hr BID IGGY Administration Protocol Insulin Aspart 1 vial 04/13/19 22:00 04/15/19 21:58 Novolog Vial Sliding Scale - SQ 3 units HS IGGY Administration Protocol Insulin Aspart 1 vial 04/13/19 07:00 04/16/19 06:15 Novolog Vial Sliding Scale - SQ 3 unit TIDAC IGGY Administration Protocol Lidocaine 1 patch 04/13/19 10:00 04/15/19 10:25 Lidoderm Patch - TP 1 patch DAILY IGGY Administration Melatonin 10 mg 04/12/19 22:00 04/15/19 21:58 Melatonin PO 10 mg HS IGGY Administration Methadone HCl 5 mg 04/13/19 15:53 04/16/19 06:15 Dolophine - PO 5 mg TID IGGY Administration Miscellaneous 1 each 04/13/19 22:00 04/15/19 21:58 Lidoderm Patch Removal MC 1 each DAILY@2200 IGGY Administration Morphine Sulfate 4 mg 04/13/19 11:15 04/16/19 06:44 Morphine Sulfate IVPUSH 4 mg Q4H PRN Administration PAIN LEVEL 6-10 Multivit/Ca Carb/B Cmplx/FA/Prenat 1 tablet 04/14/19 10:00 04/15/19 10:27 Nephro-Guilherme - PO 1 tablet DAILY IGGY Administration Nifedipine 90 mg 04/13/19 10:00 04/15/19 10:27 Procardia Xl - PO 90 mg DAILY IGGY Administration Petrolatum 1 applic 04/13/19 02:15 Vaseline TP DAILY PRN DRY SKIN Trazodone HCl 400 mg/ 450 mg 04/13/19 22:00 04/15/19 21:57 Trazodone HCl 50 mg PO 450 mg HS IGGY Administration Vancomycin HCl 125 mg 04/13/19 06:00 04/16/19 06:15 Vancomycin Oral Solution PO 125 mg Q6HPO IGGY Administration ASSESSMENT/PLAN: Luciano Judge is a 61 year old male with a past medical history of DM, HTN, ESRD on dialysis (TThS), left BKA, diabetic neuropathy, hx of MRSA bacteremia presenting for a sepsis from likely osteomyelitis of R foot. Sepsis from Osteomyelitis - elevated WBC and febrile 100.4, has been afebrile - foot x-ray with emphysematous changes, deformity, lucency, destructive changes of the distal head of third metatarsal, metatarsal head, base of R third proximal phalynx consistent with osteomyelitis - ID consulted, Vancomycin, random vanco levels to guide treatment, will need total 2 weeks of vancomycin - follow random vanco level to redose - restart Zosyn today, prophylaxis for OR procedure with vascular surgery - bacteremia with blood culture growing MRSA, repeat blood cultures negative - wound culture as above, continue to follow - pathology results showing that bone margins clear after BKA, viable skin and soft tissue margins, portion of leg with abscesses - seen by podiatry and has undergone TMA and subsequent BKA [place], will undergo closure tomorrow rescheduled, cancelled today due to anesthesia recs - POD day #6 R BKA - echo ordered to evaluate for ?endocarditis, showing normal LV function, size, function, normal EF, ?poor LV compliance, borderline aortic root dilation, trace mitral regurg, mild pericardial effusion, no evidence of vegetation, further workup as per ID - hyperbaric consult as per podiatry - physical therapy ESRD - dialysis TThS schedule - avoid fluid overload - nephrology consulted, recs appreciated Diarrhea secondary to likely c diff - positive for c diff antigen - continue oral vancomycin 125mg q6h day 6 - no longer complains of diarrhea HTN - continue home meds - cardio consulted, recs appreciated DM - hold Levemir 12 units qAM, due to hypoglycemic episode, may resume if glucose levels stabilize or rise - ISS - BGM - A1c 10.8 - will require tight insulin dosing in the setting of osteomyelitis - endocrinology consulted, recs appreciated Anemia - likely in setting of chronic renal disease - iron studies showing anemia of chronic disease - given Epogen during dialysis - continue to monitor H/H - 2 units of PRBCs given Shoulder pain/chronic pain - methadone 2.5mg tid, confirmed with [facility] and confirmed with patient's pharmacy [facility], last ordered and dispensed on 03/13 for a 30 day course, held currently in favor of morphine for pain control s/p BKA - morphine 4mg q4h prn - methadone increased to 5mg tid as per Dr. Carlos - gabapentin 300mg tid - lidocaine patch - pain management consulted Hx of PTSD - trazodone 450mg qhs Prophylaxis - heparin 5000 units subq bid FEN - no IVF, avoid fluid overload - continue to monitor electrolytes and replete as necessary - renal diet, with supplementation, NPO after midnight Dispo - continue to monitor on Med-surg - will go to SNF after BKA and PT Visit type - Emergency Visit Emergency Visit: Yes ED Registration Date: 04/06/19 Care time: The patient presented to the Emergency Department on the above date and was hospitalized for further evaluation of their emergent condition. - New Patient This patient is new to me today: No - Critical Care Critical Care patient: No
--- NOTE | 2019-04-16 13:05 | PN ---
Progress Note (short form) - Note Progress Note: Feels better No new complaints' Still with pain Rt leg s/p surgery apetite better Vital Signs Period Temp Pulse Resp BP Sys/Gutierrez Pulse Ox Last 24 Hr 9.6 F-98.2 F 70-78 18-20 102-151/55-76 95 PE: AOx3 Neck: Supple, NO JVD HEENT: EOM Lungs: CTA CVS; S1s2 Abd: Benign Ext: Left BKA, Rt leg surgery site dressing Neuro: No focal deficit CMP Sodium 137 mmol/L (136-145) 04/16/19 07:45 Potassium 4.0 mmol/L (3.5-5.1) 04/16/19 07:45 Chloride 99 mmol/L (98-107) 04/16/19 07:45 Carbon Dioxide 32 mmol/L (21-32) 04/16/19 07:45 Anion Gap 6 MMOL/L (8-16) L 04/16/19 07:45 BUN 39.1 mg/dL (7-18) H 04/16/19 07:45 Creatinine 5.1 mg/dL (0.55-1.3) H 04/16/19 07:45 Est GFR (CKD-EPI)AfAm 12.89 04/16/19 07:45 Est GFR (CKD-EPI)NonAf 11.12 04/16/19 07:45 POC Glucometer 236 UNITS (80-120) 04/16/19 06:13 Random Glucose 213 mg/dL (74-106) H 04/16/19 07:45 Hemoglobin A1c % 10.8 % (4.2-6.3) H 04/07/19 11:15 Lactic Acid 0.9 mmol/L (0.4-2.0) 04/06/19 23:00 Calcium 7.8 mg/dL (8.5-10.1) L 04/16/19 07:45 Phosphorus 4.9 mg/dL (2.5-4.9) 04/16/19 07:45 Magnesium 2.2 mg/dL (1.8-2.4) 04/16/19 07:45 Iron 21 ug/dL (50-175) L 04/09/19 09:30 TIBC 70 ug/dL (250-450) L 04/09/19 09:30 Iron Saturation 30 % (17.5-39) 04/09/19 09:30 Unsaturated IBC 49 ug/dL (200-275) L 04/09/19 09:30 Ferritin 1970.5 ng/ml (8-388) H 04/09/19 09:30 Total Bilirubin 0.4 mg/dL (0.2-1) 04/12/19 09:30 AST 9 U/L (15-37) L 04/12/19 09:30 ALT 8 U/L (13-61) L 04/12/19 09:30 Alkaline Phosphatase 151 U/L (45-117) H 04/12/19 09:30 Creatine Kinase 26 U/L (26-308) 04/06/19 23:00 Troponin I < 0.02 ng/ml (0.00-0.05) 04/06/19 23:00 C-Reactive Protein 22.3 MG/DL (0.00-0.3) H 04/07/19 11:15 Total Protein 5.2 g/dl (6.4-8.2) L 04/12/19 09:30 Albumin 1.4 g/dl (3.4-5.0) L 04/12/19 09:30 Vitamin B12 1212 pg/ml (193-986) H 04/09/19 09:30 Serum Folate 13 ng/mL (3.1-17.5) 04/09/19 09:30 Current Medications Generic Name Dose Route Start Last Admin Trade Name Freq PRN Reason Stop Dose Admin Albuterol Sulfate 1 amp 04/13/19 02:15 Ventolin 0.083% Nebulizer Soln - NEB Q4H PRN SHORT OF BREATH/WHEEZING Amino Acids 30 ml 04/13/19 17:30 04/15/19 16:29 Prosource No Carb Liquid Pkt PO 30 ml BID@0800,1730 IGGY Administration Calcium Acetate 1,334 mg 04/14/19 13:05 04/15/19 16:29 Phoslo - PO 1,334 mg TIDCM IGGY Administration Doxazosin Mesylate 4 mg 04/13/19 10:00 04/15/19 10:25 Cardura - PO 4 mg DAILY IGGY Administration Fluticasone Propionate 1 spray 04/13/19 10:00 04/15/19 10:26 Flonase - NS 1 spray DAILY IGGY Administration Gabapentin 300 mg 04/13/19 16:00 04/16/19 06:15 Neurontin - PO 300 mg TID IGGY Administration Piperacillin Sod/Tazobactam 50 mls @ 100 mls/hr 04/15/19 10:00 04/15/19 21:58 Sod 2.25 gm/ Dextrose IVPB 100 mls/hr BID IGGY Administration Protocol Insulin Aspart 1 vial 04/13/19 22:00 04/15/19 21:58 Novolog Vial Sliding Scale - SQ 3 units HS IGGY Administration Protocol Insulin Aspart 1 vial 04/13/19 07:00 04/16/19 06:15 Novolog Vial Sliding Scale - SQ 3 unit TIDAC IGGY Administration Protocol Lidocaine 1 patch 04/13/19 10:00 04/15/19 10:25 Lidoderm Patch - TP 1 patch DAILY IGGY Administration Melatonin 10 mg 04/12/19 22:00 04/15/19 21:58 Melatonin PO 10 mg HS IGGY Administration Methadone HCl 5 mg 04/13/19 15:53 04/16/19 06:15 Dolophine - PO 5 mg TID IGGY Administration Miscellaneous 1 each 04/13/19 22:00 04/15/19 21:58 Lidoderm Patch Removal MC 1 each DAILY@2200 IGGY Administration Morphine Sulfate 4 mg 04/13/19 11:15 04/16/19 06:44 Morphine Sulfate IVPUSH 4 mg Q4H PRN Administration PAIN LEVEL 6-10 Multivit/Ca Carb/B Cmplx/FA/Prenat 1 tablet 04/14/19 10:00 04/15/19 10:27 Nephro-Guilherme - PO 1 tablet DAILY IGGY Administration Nifedipine 90 mg 04/13/19 10:00 04/15/19 10:27 Procardia Xl - PO 90 mg DAILY IGGY Administration Petrolatum 1 applic 04/13/19 02:15 Vaseline TP DAILY PRN DRY SKIN Trazodone HCl 400 mg/ 450 mg 04/13/19 22:00 04/15/19 21:57 Trazodone HCl 50 mg PO 450 mg HS IGGY Administration Vancomycin HCl 125 mg 04/13/19 06:00 04/16/19 06:15 Vancomycin Oral Solution PO 125 mg Q6HPO IGGY Administration AP: Right foot Infection/Metatarsal osteomyelitis: S/P Rt BKA S/P Transmetatarsal amputation: Sepsis ESRD on HD DM Uncontrolled: A1c 10.3/Episode of hypoglycemia asymptomatic HTN PVD S/P Left BKA H/O MRSA bacteremia 09/2017 suspected from HD catheter H.O Right IJ thrombus in 09/2017 (suspected catheter related) BGM QACHS and 3 PM Monitor blood sugar closely as pts with CKD tend to be very sensitive to Insulin and develop hypoglycemia frequently Restart Levemir 3 units daily at HS, Hold if FS <140 or pt is NPO Novolog SS coverage Will F/u
[2019-04-16] MEDS ORDERED: PIPERACILLIN/TAZOBACTAM 2.25 GM VIAL IVPB ONE ×2 (13:19→21:13)
[2019-04-16] MEDS ORDERED: DEXTROSE 5%-WATER - 50 ML IVPB ONE ×2 (13:19→21:13)
[2019-04-16] MEDS: AMINO ACIDS/PROTEIN HYDROLYS 30 ML LIQUID.PKT PO SCH ×2 (13:27→17:03)
[2019-04-16] MEDS: CALCIUM ACETATE 667 MG CAPSULE (FP) PO SCH ×3 (13:27→17:03)
[2019-04-16] MEDS: LIDOCAINE 5% TOPICAL PATCH TP SCH (13:28)
[2019-04-16] MEDS: VITAMIN B COMP W-C 1 EA TABLET PO SCH (13:28)
[2019-04-16] MEDS: FLUTICASONE PROP 0.05% 16 GM NASAL SPRAY NS SCH (13:28)
[2019-04-16] MEDS: DOXAZOSIN MESYLATE 4 MG TABLET PO SCH (13:29)
[2019-04-16] MEDS: PIPERACILLIN/TAZOB 2.25 GM 2.25 GM in DEXTROSE 5%-WATER - 50 ML IVPB SCH ×2 (13:29→21:40)
[2019-04-16] MEDS: NIFEdipine E.R. 90 MG TABLET (FP) PO SCH (13:29)
--- NOTE | 2019-04-16 15:35 | PN ---
Progress Note, Physician History of Present Illness: stable wbc increased plan for surgery - Current Medication List Current Medications: Active Medications Albuterol Sulfate (Ventolin 0.083% Nebulizer Soln -) 1 amp NEB Q4H PRN PRN Reason: SHORT OF BREATH/WHEEZING Amino Acids (Prosource No Carb Liquid Pkt) 30 ml PO BID@0800,1730 [facility] Last Admin: 04/16/19 13:27 Dose: Not Given Calcium Acetate (Phoslo -) 1,334 mg PO TIDCM [facility] Last Admin: 04/16/19 13:27 Dose: 1,334 mg Doxazosin Mesylate (Cardura -) 4 mg PO DAILY [facility] Last Admin: 04/16/19 13:29 Dose: 4 mg Fluticasone Propionate (Flonase -) 1 spray NS DAILY [facility] Last Admin: 04/16/19 13:28 Dose: 1 spray Gabapentin (Neurontin -) 300 mg PO TID [facility] Last Admin: 04/16/19 14:13 Dose: 300 mg Piperacillin Sod/Tazobactam (Sod 2.25 gm/ Dextrose) 50 mls @ 100 mls/hr IVPB BID [facility]; Protocol Last Admin: 04/16/19 13:29 Dose: 100 mls/hr Insulin Aspart (Novolog Vial Sliding Scale -) 1 vial SQ HS [facility]; Protocol Last Admin: 04/15/19 21:58 Dose: 3 units Insulin Aspart (Novolog Vial Sliding Scale -) 1 vial SQ TIDAC [facility]; Protocol Last Admin: 04/16/19 13:29 Dose: Not Given Insulin Detemir (Levemir Vial) 3 units SQ HS [facility] Lidocaine (Lidoderm Patch -) 1 patch TP DAILY [facility] Last Admin: 04/16/19 13:28 Dose: 1 patch Melatonin (Melatonin) 10 mg PO HS [facility] Last Admin: 04/15/19 21:58 Dose: 10 mg Methadone HCl (Dolophine -) 5 mg PO TID [facility] Last Admin: 04/16/19 13:28 Dose: 5 mg Miscellaneous (Lidoderm Patch Removal) 1 each MC DAILY@2200 [facility] Last Admin: 04/15/19 21:58 Dose: 1 each Morphine Sulfate (Morphine Sulfate) 4 mg IVPUSH Q4H PRN PRN Reason: PAIN LEVEL 6-10 Last Admin: 04/16/19 06:44 Dose: 4 mg Multivit/Ca Carb/B Cmplx/FA/Prenat (Nephro-Guilherme -) 1 tablet PO DAILY [facility] Last Admin: 04/16/19 13:28 Dose: 1 tablet Nifedipine (Procardia Xl -) 90 mg PO DAILY [facility] Last Admin: 04/16/19 13:29 Dose: 90 mg Petrolatum (Vaseline) 1 applic TP DAILY PRN PRN Reason: DRY SKIN Trazodone HCl 400 mg/ (Trazodone HCl 50 mg) 450 mg PO HS [facility] Last Admin: 04/15/19 21:57 Dose: 450 mg Vancomycin HCl (Vancomycin Oral Solution) 125 mg PO Q6HPO [facility] Last Admin: 04/16/19 14:12 Dose: 125 mg - Objective Vital Signs: Vital Signs Temperature 97.8 F 04/16/19 13:30 Pulse Rate 87 04/16/19 13:30 Respiratory Rate 20 04/16/19 13:30 Blood Pressure 135/69 04/16/19 13:30 O2 Sat by Pulse Oximetry (%) 95 04/16/19 09:00 Constitutional: Yes: No Distress, Calm Cardiovascular: Yes: S1, S2 Respiratory: Yes: Regular, CTA Bilaterally Gastrointestinal: Yes: Normal Bowel Sounds, Soft Musculoskeletal: Yes: Other Extremities: Yes: Other Wound/Incision: Yes: Dressing Dry and Intact Neurological: Yes: Alert, Oriented Psychiatric: Yes: Alert, Oriented Labs: CBC, BMP 04/16/19 07:45 04/16/19 07:45 INR, PTT INR 1.15 (0.83-1.09) H 04/16/19 07:45 Assessment/Plan 61 year old male with a past medical history of DM, HTN, ESRD on dialysis (TThS) , left BKA, diabetic neuropathy, hx of MRSA bacteremia, presenting for a sepsis from likely osteomyelitis of R foot. sepsis osteo r foot esrd htn dm gas gangrene mrsa bacteremia Problem List - Problems (1) Diabetes Code(s): E11.9 - TYPE 2 DIABETES MELLITUS WITHOUT COMPLICATIONS (2) Diastolic CHF Code(s): I50.30 - UNSPECIFIED DIASTOLIC (CONGESTIVE) HEART FAILURE (3) ESRD (end stage renal disease) on dialysis Code(s): N18.6 - END STAGE RENAL DISEASE; Z99.2 - DEPENDENCE ON RENAL DIALYSIS (4) Gangrene of right foot Code(s): I96 - GANGRENE, NOT ELSEWHERE CLASSIFIED (5) HTN (hypertension) Code(s): I10 - ESSENTIAL (PRIMARY) HYPERTENSION (6) Status post amputation of right foot Code(s): Z89.431 - ACQUIRED ABSENCE OF RIGHT FOOT (7) Amputation, below knee, unilateral, traumatic Code(s): S88.119A - COMPLETE TRAUM AMP AT LEV BETW KN & ANKL, UNSP LOW LEG, INIT Qualifiers: Encounter type: subsequent encounter Laterality: left Qualified Code(s): S88.112D - Complete traumatic amputation at level between knee and ankle, left lower leg, subsequent encounter (8) Bacteremia due to Gram-positive bacteria Code(s): R78.81 - BACTEREMIA (9) Hemodialysis access, AV graft Code(s): Z99.2 - DEPENDENCE ON RENAL DIALYSIS (10) Osteomyelitis of right foot Code(s): M86.9 - OSTEOMYELITIS, UNSPECIFIED Qualifiers: (11) Peripheral vascular disease due to secondary diabetes Code(s): E13.51 - OTH DIABETES W DIABETIC PERIPHERAL ANGIOPATHY W/O GANGRENE (12) Sepsis Code(s): A41.9 - SEPSIS, UNSPECIFIED ORGANISM Qualifiers: Sepsis type: methicillin susceptible Staphylococcus aureus Qualified Code(s ): A41.01 - Sepsis due to Methicillin susceptible Staphylococcus aureus (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
[2019-04-16] MEDS: MELATONIN 5 MG TABLETS PO SCH (21:42)
[2019-04-16] MEDS: LIDOCAINE PATCH REMOVAL MC SCH (21:43)
[2019-04-16] MEDS ORDERED: INSULIN (LEVEMIR) 100 UNITS/ML UNITS SQ SCH (22:00)
[2019-04-16] MEDS: TRAZODONE HCL PO SCH (22:23)
[2019-04-17] MEDS: VANCOMYCIN 250 MG/5 ML ORAL SOLUTION PO SCH ×4 (00:01→17:54)
[2019-04-17] MEDS: METHADONE HCL 5 MG TABLET PO SCH ×3 (06:10→22:06)
[2019-04-17] MEDS: GABAPENTIN 300 MG CAPSULE (FP) PO SCH ×3 (06:10→22:06)
[2019-04-17] MEDS: INSULIN SLIDING SCALE (NOVOLOG) 1 VIAL SQ SCH ×4 (06:17→22:07)
[2019-04-17 08:14] LABS: MCH 27.6 pg (25.7-33.7); MCHC 30.7 g/dl (32.0-35.9); MEAN CELL VOLUME 89.9 fl (80-96); MEAN PLT VOLUME 8.5 fl (7.5-11.1); PLATELET COUNT 465 K/MM3 (134-434); RBC 2.89 M/mm3 (4.00-5.60); RDW 16.6 % (11.9-15.9); WHITE BLOOD COUNT 15.6 K/mm3 (4.0-10.0)
[2019-04-17 08:38] LABS: BLOOD UREA NITROGEN 26.7 mg/dL (7-18); CALCIUM 7.8 mg/dL (8.5-10.1); CREATININE 3.8 mg/dL (0.55-1.3); MAGNESIUM 2.2 mg/dL (1.8-2.4); PHOSPHOROUS 3.2 mg/dL (2.5-4.9)
[2019-04-17] MEDS ORDERED: DEXTROSE 5%-WATER - 50 ML IVPB ONE ×2 (09:07→21:08)
[2019-04-17] MEDS ORDERED: PIPERACILLIN/TAZOBACTAM 2.25 GM VIAL IVPB ONE ×2 (09:07→21:08)
[2019-04-17] MEDS: CALCIUM ACETATE 667 MG CAPSULE (FP) PO SCH ×3 (09:13→17:55)
[2019-04-17] MEDS: AMINO ACIDS/PROTEIN HYDROLYS 30 ML LIQUID.PKT PO SCH ×2 (09:14→17:54)
[2019-04-17] MEDS: VITAMIN B COMP W-C 1 EA TABLET PO SCH (09:14)
[2019-04-17] MEDS ORDERED: PT OWN MED DRAWER 7, Y5N ONE ×2 (09:15→21:08)
[2019-04-17] MEDS: NIFEdipine E.R. 90 MG TABLET (FP) PO SCH (09:18)
[2019-04-17] MEDS: DOXAZOSIN MESYLATE 4 MG TABLET PO SCH (09:18)
[2019-04-17] MEDS: LIDOCAINE 5% TOPICAL PATCH TP SCH (09:18)
[2019-04-17] MEDS: PIPERACILLIN/TAZOB 2.25 GM 2.25 GM in DEXTROSE 5%-WATER - 50 ML IVPB SCH ×2 (09:19→22:08)
[2019-04-17] MEDS: FLUTICASONE PROP 0.05% 16 GM NASAL SPRAY NS SCH (09:22)
--- NOTE | 2019-04-17 09:37 | PN ---
Progress Note (short form) - Note Progress Note: Feels better No new complaints' Still with pain Rt leg s/p surgery apetite better NPO or OR today Vital Signs Period Temp Pulse Resp BP Sys/Gutierrez Pulse Ox Last 24 Hr 9.6 F-98.2 F 70-78 18-20 102-151/55-76 95 PE: AOx3 Neck: Supple, NO JVD HEENT: EOM Lungs: CTA CVS; S1s2 Abd: Benign Ext: Left BKA, Rt leg surgery site dressing Neuro: No focal deficit CMP Sodium 141 mmol/L (136-145) 04/17/19 06:40 Potassium 4.0 mmol/L (3.5-5.1) 04/17/19 06:40 Chloride 103 mmol/L (98-107) 04/17/19 06:40 Carbon Dioxide 32 mmol/L (21-32) 04/17/19 06:40 Anion Gap 6 MMOL/L (8-16) L 04/17/19 06:40 BUN 26.7 mg/dL (7-18) H 04/17/19 06:40 Creatinine 3.8 mg/dL (0.55-1.3) H 04/17/19 06:40 Est GFR (CKD-EPI)AfAm 18.40 04/17/19 06:40 Est GFR (CKD-EPI)NonAf 15.88 04/17/19 06:40 POC Glucometer 105 UNITS (80-120) 04/17/19 06:16 Random Glucose 95 mg/dL (74-106) 04/17/19 06:40 Hemoglobin A1c % 10.8 % (4.2-6.3) H 04/07/19 11:15 Lactic Acid 0.9 mmol/L (0.4-2.0) 04/06/19 23:00 Calcium 7.8 mg/dL (8.5-10.1) L 04/17/19 06:40 Phosphorus 3.2 mg/dL (2.5-4.9) 04/17/19 06:40 Magnesium 2.2 mg/dL (1.8-2.4) 04/17/19 06:40 Iron 21 ug/dL (50-175) L 04/09/19 09:30 TIBC 70 ug/dL (250-450) L 12/12/19 09:30 Iron Saturation 30 % (17.5-39) 04/09/19 09:30 Unsaturated IBC 49 ug/dL (200-275) L 04/09/19 09:30 Ferritin 1970.5 ng/ml (8-388) H 04/09/19 09:30 Total Bilirubin 0.4 mg/dL (0.2-1) 04/12/19 09:30 AST 9 U/L (15-37) L 04/12/19 09:30 ALT 8 U/L (13-61) L 04/12/19 09:30 Alkaline Phosphatase 151 U/L (45-117) H 04/12/19 09:30 Creatine Kinase 26 U/L (26-308) 04/06/19 23:00 Troponin I < 0.02 ng/ml (0.00-0.05) 04/06/19 23:00 C-Reactive Protein 22.3 MG/DL (0.00-0.3) H 04/07/19 11:15 Total Protein 5.2 g/dl (6.4-8.2) L 04/12/19 09:30 Albumin 1.4 g/dl (3.4-5.0) L 04/12/19 09:30 Vitamin B12 1212 pg/ml (193-986) H 04/09/19 09:30 Serum Folate 13 ng/mL (3.1-17.5) 04/09/19 09:30 Current Medications Generic Name Dose Route Start Last Admin Trade Name Freq PRN Reason Stop Dose Admin Albuterol Sulfate 1 amp 04/13/19 02:15 Ventolin 0.083% Nebulizer Soln - NEB Q4H PRN SHORT OF BREATH/WHEEZING Amino Acids 30 ml 04/13/19 17:30 04/17/19 09:14 Prosource No Carb Liquid Pkt PO Not Given BID@0800,1730 IGGY Calcium Acetate 1,334 mg 04/14/19 13:05 04/17/19 09:13 Phoslo - PO Not Given TIDCM IGGY Doxazosin Mesylate 4 mg 04/13/19 10:00 04/17/19 09:18 Cardura - PO 4 mg DAILY IGGY Administration Fluticasone Propionate 1 spray 04/13/19 10:00 04/17/19 09:22 Flonase - NS 1 spray DAILY IGGY Administration Gabapentin 300 mg 04/13/19 16:00 04/17/19 06:10 Neurontin - PO 300 mg TID IGGY Administration Piperacillin Sod/Tazobactam 50 mls @ 100 mls/hr 04/15/19 10:00 04/17/19 09:19 Sod 2.25 gm/ Dextrose IVPB 100 mls/hr BID IGGY Administration Protocol Insulin Aspart 1 vial 04/13/19 22:00 04/16/19 21:53 Novolog Vial Sliding Scale - SQ 4 units HS IGGY Administration Protocol Insulin Aspart 1 vial 04/13/19 07:00 04/17/19 06:17 Novolog Vial Sliding Scale - SQ Not Given TIDAC [facility] Protocol Insulin Detemir 3 units 04/16/19 22:00 04/16/19 21:43 Levemir Vial SQ 3 units HS IGGY Administration Lidocaine 1 patch 04/13/19 10:00 04/17/19 09:18 Lidoderm Patch - TP 1 patch DAILY IGGY Administration Melatonin 10 mg 04/12/19 22:00 04/16/19 21:42 Melatonin PO 10 mg HS IGGY Administration Methadone HCl 5 mg 04/13/19 15:53 04/17/19 06:10 Dolophine - PO 5 mg TID IGGY Administration Miscellaneous 1 each 04/13/19 22:00 04/16/19 21:43 Lidoderm Patch Removal MC 1 each DAILY@2200 IGGY Administration Morphine Sulfate 4 mg 04/13/19 11:15 04/16/19 06:44 Morphine Sulfate IVPUSH 4 mg Q4H PRN Administration PAIN LEVEL 6-10 Multivit/Ca Carb/B Cmplx/FA/Prenat 1 tablet 04/14/19 10:00 04/17/19 09:14 Nephro-Guilherme - PO Not Given DAILY IGGY Nifedipine 90 mg 04/13/19 10:00 04/17/19 09:18 Procardia Xl - PO 90 mg DAILY IGGY Administration Petrolatum 1 applic 04/13/19 02:15 Vaseline TP DAILY PRN DRY SKIN Trazodone HCl 400 mg/ 450 mg 04/13/19 22:00 04/16/19 22:23 Trazodone HCl 50 mg PO 450 mg HS IGGY Administration Vancomycin HCl 125 mg 04/13/19 06:00 04/17/19 06:09 Vancomycin Oral Solution PO 125 mg Q6HPO IGGY Administration AP: Right foot Infection/Metatarsal osteomyelitis: S/P Rt BKA S/P Transmetatarsal amputation: Sepsis ESRD on HD DM Uncontrolled: A1c 10.3/Episode of hypoglycemia asymptomatic HTN PVD S/P Left BKA H/O MRSA bacteremia 09/2017 suspected from HD catheter H.O Right IJ thrombus in 09/2017 (suspected catheter related) BGM QACHS and 3 PM Monitor blood sugar closely as pts with CKD tend to be very sensitive to Insulin and develop hypoglycemia frequently Levemir 3 units daily at HS, Hold if FS <140 or pt is NPO Novolog SS coverage Will F/u
--- NOTE | 2019-04-17 09:44 | PN ---
Progress Note, Physician History of Present Illness: stable no new issues - Current Medication List Current Medications: Active Medications Albuterol Sulfate (Ventolin 0.083% Nebulizer Soln -) 1 amp NEB Q4H PRN PRN Reason: SHORT OF BREATH/WHEEZING Amino Acids (Prosource No Carb Liquid Pkt) 30 ml PO BID@0800,1730 [facility] Last Admin: 04/17/19 09:14 Dose: Not Given Calcium Acetate (Phoslo -) 1,334 mg PO TIDCM [facility] Last Admin: 04/17/19 09:13 Dose: Not Given Doxazosin Mesylate (Cardura -) 4 mg PO DAILY [facility] Last Admin: 04/17/19 09:18 Dose: 4 mg Fluticasone Propionate (Flonase -) 1 spray NS DAILY [facility] Last Admin: 04/17/19 09:22 Dose: 1 spray Gabapentin (Neurontin -) 300 mg PO TID [facility] Last Admin: 04/17/19 06:10 Dose: 300 mg Piperacillin Sod/Tazobactam (Sod 2.25 gm/ Dextrose) 50 mls @ 100 mls/hr IVPB BID [facility]; Protocol Last Admin: 04/17/19 09:19 Dose: 100 mls/hr Insulin Aspart (Novolog Vial Sliding Scale -) 1 vial SQ HS [facility]; Protocol Last Admin: 04/16/19 21:53 Dose: 4 units Insulin Aspart (Novolog Vial Sliding Scale -) 1 vial SQ TIDAC [facility]; Protocol Last Admin: 04/17/19 06:17 Dose: Not Given Insulin Detemir (Levemir Vial) 3 units SQ HS [facility] Last Admin: 04/16/19 21:43 Dose: 3 units Lidocaine (Lidoderm Patch -) 1 patch TP DAILY [facility] Last Admin: 04/17/19 09:18 Dose: 1 patch Melatonin (Melatonin) 10 mg PO HS [facility] Last Admin: 04/16/19 21:42 Dose: 10 mg Methadone HCl (Dolophine -) 5 mg PO TID [facility] Last Admin: 04/17/19 06:10 Dose: 5 mg Miscellaneous (Lidoderm Patch Removal) 1 each MC DAILY@2200 [facility] Last Admin: 04/16/19 21:43 Dose: 1 each Morphine Sulfate (Morphine Sulfate) 4 mg IVPUSH Q4H PRN PRN Reason: PAIN LEVEL 6-10 Last Admin: 04/16/19 06:44 Dose: 4 mg Multivit/Ca Carb/B Cmplx/FA/Prenat (Nephro-Guilherme -) 1 tablet PO DAILY [facility] Last Admin: 04/17/19 09:14 Dose: Not Given Nifedipine (Procardia Xl -) 90 mg PO DAILY [facility] Last Admin: 04/17/19 09:18 Dose: 90 mg Petrolatum (Vaseline) 1 applic TP DAILY PRN PRN Reason: DRY SKIN Trazodone HCl 400 mg/ (Trazodone HCl 50 mg) 450 mg PO HS [facility] Last Admin: 04/16/19 22:23 Dose: 450 mg Vancomycin HCl (Vancomycin Oral Solution) 125 mg PO Q6HPO [facility] Last Admin: 04/17/19 06:09 Dose: 125 mg - Objective Vital Signs: Vital Signs Temperature 97.7 F 04/17/19 09:02 Pulse Rate 71 04/17/19 09:02 Respiratory Rate 20 04/17/19 09:02 Blood Pressure 121/63 04/17/19 09:02 O2 Sat by Pulse Oximetry (%) 95 04/16/19 21:00 Constitutional: Yes: No Distress, Calm Cardiovascular: Yes: S1, S2 Respiratory: Yes: Regular, CTA Bilaterally Gastrointestinal: Yes: Normal Bowel Sounds, Soft Musculoskeletal: Yes: WNL Extremities: Yes: Other Neurological: Yes: Alert, Oriented Psychiatric: Yes: Alert, Oriented Labs: CBC, BMP 04/17/19 06:40 04/17/19 06:40 INR, PTT INR 1.15 (0.83-1.09) H 04/16/19 07:45 Assessment/Plan 61 year old male with a past medical history of DM, HTN, ESRD on dialysis (TThS) , left BKA, diabetic neuropathy, hx of MRSA bacteremia, presenting for a sepsis from likely osteomyelitis of R foot. sepsis osteo r foot esrd htn dm gas gangrene mrsa bacteremia Problem List - Problems (1) Diabetes Code(s): E11.9 - TYPE 2 DIABETES MELLITUS WITHOUT COMPLICATIONS (2) Diastolic CHF Code(s): I50.30 - UNSPECIFIED DIASTOLIC (CONGESTIVE) HEART FAILURE (3) ESRD (end stage renal disease) on dialysis Code(s): N18.6 - END STAGE RENAL DISEASE; Z99.2 - DEPENDENCE ON RENAL DIALYSIS (4) Gangrene of right foot Code(s): I96 - GANGRENE, NOT ELSEWHERE CLASSIFIED (5) HTN (hypertension) Code(s): I10 - ESSENTIAL (PRIMARY) HYPERTENSION (6) Status post amputation of right foot Code(s): Z89.431 - ACQUIRED ABSENCE OF RIGHT FOOT (7) Amputation, below knee, unilateral, traumatic Code(s): S88.119A - COMPLETE TRAUM AMP AT LEV BETW KN & ANKL, UNSP LOW LEG, INIT Qualifiers: Encounter type: subsequent encounter Laterality: left Qualified Code(s): S88.112D - Complete traumatic amputation at level between knee and ankle, left lower leg, subsequent encounter (8) Bacteremia due to Gram-positive bacteria Code(s): R78.81 - BACTEREMIA (9) Hemodialysis access, AV graft Code(s): Z99.2 - DEPENDENCE ON RENAL DIALYSIS (10) Osteomyelitis of right foot Code(s): M86.9 - OSTEOMYELITIS, UNSPECIFIED Qualifiers: (11) Peripheral vascular disease due to secondary diabetes Code(s): E13.51 - OTH DIABETES W DIABETIC PERIPHERAL ANGIOPATHY W/O GANGRENE (12) Sepsis Code(s): A41.9 - SEPSIS, UNSPECIFIED ORGANISM Qualifiers: Sepsis type: methicillin susceptible Staphylococcus aureus Qualified Code(s ): A41.01 - Sepsis due to Methicillin susceptible Staphylococcus aureus (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
--- NOTE | 2019-04-17 10:46 | PN ---
Progress Note, Physician History of Present Illness: POD#7 post right BKA. Pain adequately controlled. - Current Medication List Current Medications: Active Medications Albuterol Sulfate (Ventolin 0.083% Nebulizer Soln -) 1 amp NEB Q4H PRN PRN Reason: SHORT OF BREATH/WHEEZING Amino Acids (Prosource No Carb Liquid Pkt) 30 ml PO BID@0800,1730 [facility] Last Admin: 04/17/19 09:14 Dose: Not Given Calcium Acetate (Phoslo -) 1,334 mg PO TIDCM [facility] Last Admin: 04/17/19 09:13 Dose: Not Given Doxazosin Mesylate (Cardura -) 4 mg PO DAILY [facility] Last Admin: 04/17/19 09:18 Dose: 4 mg Fluticasone Propionate (Flonase -) 1 spray NS DAILY [facility] Last Admin: 04/17/19 09:22 Dose: 1 spray Gabapentin (Neurontin -) 300 mg PO TID [facility] Last Admin: 04/17/19 06:10 Dose: 300 mg Piperacillin Sod/Tazobactam (Sod 2.25 gm/ Dextrose) 50 mls @ 100 mls/hr IVPB BID [facility]; Protocol Last Admin: 04/17/19 09:19 Dose: 100 mls/hr Insulin Aspart (Novolog Vial Sliding Scale -) 1 vial SQ HS [facility]; Protocol Last Admin: 04/16/19 21:53 Dose: 4 units Insulin Aspart (Novolog Vial Sliding Scale -) 1 vial SQ TIDAC [facility]; Protocol Last Admin: 04/17/19 06:17 Dose: Not Given Insulin Detemir (Levemir Vial) 3 units SQ HS [facility] Last Admin: 04/16/19 21:43 Dose: 3 units Lidocaine (Lidoderm Patch -) 1 patch TP DAILY [facility] Last Admin: 04/17/19 09:18 Dose: 1 patch Melatonin (Melatonin) 10 mg PO HS [facility] Last Admin: 04/16/19 21:42 Dose: 10 mg Methadone HCl (Dolophine -) 5 mg PO TID [facility] Last Admin: 04/17/19 06:10 Dose: 5 mg Miscellaneous (Lidoderm Patch Removal) 1 each MC DAILY@2200 [facility] Last Admin: 04/16/19 21:43 Dose: 1 each Morphine Sulfate (Morphine Sulfate) 4 mg IVPUSH Q4H PRN PRN Reason: PAIN LEVEL 6-10 Last Admin: 12/19/19 06:44 Dose: 4 mg Multivit/Ca Carb/B Cmplx/FA/Prenat (Nephro-Guilherme -) 1 tablet PO DAILY [facility] Last Admin: 04/17/19 09:14 Dose: Not Given Nifedipine (Procardia Xl -) 90 mg PO DAILY [facility] Last Admin: 04/17/19 09:18 Dose: 90 mg Petrolatum (Vaseline) 1 applic TP DAILY PRN PRN Reason: DRY SKIN Trazodone HCl 400 mg/ (Trazodone HCl 50 mg) 450 mg PO HS [facility] Last Admin: 04/16/19 22:23 Dose: 450 mg Vancomycin HCl (Vancomycin Oral Solution) 125 mg PO Q6HPO [facility] Last Admin: 04/17/19 06:09 Dose: 125 mg - Objective Vital Signs: Vital Signs Temperature 97.7 F 04/17/19 09:02 Pulse Rate 71 04/17/19 09:02 Respiratory Rate 20 04/17/19 09:02 Blood Pressure 121/63 04/17/19 09:02 O2 Sat by Pulse Oximetry (%) 95 04/16/19 21:00 Constitutional: Yes: No Distress, Calm Neck: Yes: Supple Cardiovascular: Yes: Regular Rate and Rhythm Respiratory: Yes: Regular, Diminished, On Nasal O2 Gastrointestinal: Yes: Soft, Hypoactive Bowel Sounds Extremities: Yes: Amputation (Bilateral BKA) Edema: No Labs: CBC, BMP 04/17/19 06:40 04/17/19 06:40 INR, PTT INR 1.15 (0.83-1.09) H 04/16/19 07:45 Problem List - Problems (1) Cellulitis of right foot Code(s): L03.115 - CELLULITIS OF RIGHT LOWER LIMB (2) ESRD (end stage renal disease) on dialysis Code(s): N18.6 - END STAGE RENAL DISEASE; Z99.2 - DEPENDENCE ON RENAL DIALYSIS (3) Uncontrolled diabetes mellitus Code(s): E11.65 - TYPE 2 DIABETES MELLITUS WITH HYPERGLYCEMIA Qualifiers: Diabetes mellitus type: type 2 Glycemic state: with hyperglycemia Qualified Code(s): E11.65 - Type 2 diabetes mellitus with hyperglycemia (4) Anemia Code(s): D64.9 - ANEMIA, UNSPECIFIED Qualifiers: Anemia type: due to chronic kidney disease Chronic kidney disease stage: on chronic dialysis Qualified Code(s): N18.6 - End stage renal disease; D63.1 - Anemia in chronic kidney disease; Z99.2 - Dependence on renal dialysis (5) Foot infection Code(s): L08.9 - LOCAL INFECTION OF THE SKIN AND SUBCUTANEOUS TISSUE, UNSP (6) Bacteremia due to Gram-positive bacteria Code(s): R78.81 - BACTEREMIA (7) ESRD (end stage renal disease) Code(s): N18.6 - END STAGE RENAL DISEASE (8) Peripheral vascular disease due to secondary diabetes Code(s): E13.51 - OTH DIABETES W DIABETIC PERIPHERAL ANGIOPATHY W/O GANGRENE (9) Diabetic neuropathy Code(s): E11.40 - TYPE 2 DIABETES MELLITUS WITH DIABETIC NEUROPATHY, UNSP Qualifiers: Diabetes mellitus type: type 2 Diabetes mellitus complication detail: diabetic polyneuropathy Qualified Code(s): E11.42 - Type 2 diabetes mellitus with diabetic polyneuropathy (10) Osteomyelitis Code(s): M86.9 - OSTEOMYELITIS, UNSPECIFIED Qualifiers: Osteomyelitis type: other chronic Osteomyelitis location: foot (11) Type 2 diabetes mellitus with foot ulcer Code(s): E11.621 - TYPE 2 DIABETES MELLITUS WITH FOOT ULCER; L97.509 - NON- PRESSURE CHRONIC ULCER OT PRT UNSP FOOT W UNSP SEVERITY Qualifiers: Diabetes mellitus skilled nursing 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 MRSA bacteremia from osteomyelitis of R foot s/p RLE BKA plan for BKA revision 2. ESRD on HD TThS, suspected diabetic nephropathy 3. Moderate pericardial effusion referable to uremic pericarditis since resolved 4. Insulin-dependent Type 2 DM c/b neuropathy uncontrolled, A1C 10.8 5. HTN/HCVD 6. PAD 7. Anemia of chronic kidney disease 8. H/o Right IJ/SCV thrombus probably catheter related 9. PAD s/p left BKA 10. History of substance abuse currently on Methadone PLAN: 1. Vanco/Zosyn course per ID, f/u cultures confirms bacteremia clearance, wound care, HBO2. 2. Continue Cardura 4 qd, Procardia XL 90 qd 3. Would defer CHAKA unless persistently bacteremic and we are looking for additional source besides established right foot osteomyeleitis, 04/09 bld cx document clearance 4. Monitor Hgb and transfuse as needed to maintain Hgb>7.0, continue high dose ADRIAN 5. TThS HD per renal
[2019-04-17] MEDS ORDERED: SODIUM CHLORIDE 250 ML IV PRN (11:20)
--- NOTE | 2019-04-17 11:20 | PN ---
Progress Note (short form) - Note Progress Note: Renal follow up for ESRD on HD Seen and examined at the bedside no acute complaints no shortness of breath, chest pain, N/V/D Vital Signs Temperature 97.7 F 04/17/19 09:02 Pulse Rate 71 04/17/19 09:02 Respiratory Rate 20 04/17/19 09:02 Blood Pressure 121/63 04/17/19 09:02 O2 Sat by Pulse Oximetry (%) 95 04/16/19 21:00 Intake & Output 04/14/19 04/15/19 04/16/19 04/17/19 23:59 23:59 23:59 23:59 Intake Total 1520 250 900 100 Output Total 2100 150 2400 Balance -580 100 -1500 100 Weight 80.371 kg 79.379 kg 79.124 kg 80.739 kg NAD awake and alert neck supple, no JVD RRR CTA soft NT/ND no LE edema CBC, BMP 04/17/19 06:40 04/17/19 06:40 Current Medications Albuterol Sulfate (Ventolin 0.083% Nebulizer Soln -) 1 amp NEB Q4H PRN PRN Reason: SHORT OF BREATH/WHEEZING Amino Acids (Prosource No Carb Liquid Pkt) 30 ml PO BID@0800,1730 [facility] Last Admin: 04/17/19 09:14 Dose: Not Given Calcium Acetate (Phoslo -) 1,334 mg PO TIDCM [facility] Last Admin: 04/17/19 09:13 Dose: Not Given Doxazosin Mesylate (Cardura -) 4 mg PO DAILY [facility] Last Admin: 04/17/19 09:18 Dose: 4 mg Fluticasone Propionate (Flonase -) 1 spray NS DAILY [facility] Last Admin: 04/17/19 09:22 Dose: 1 spray Gabapentin (Neurontin -) 300 mg PO TID [facility] Last Admin: 04/17/19 06:10 Dose: 300 mg Piperacillin Sod/Tazobactam (Sod 2.25 gm/ Dextrose) 50 mls @ 100 mls/hr IVPB BID [facility]; Protocol Last Admin: 04/17/19 09:19 Dose: 100 mls/hr Insulin Aspart (Novolog Vial Sliding Scale -) 1 vial SQ HS [facility]; Protocol Last Admin: 04/16/19 21:53 Dose: 4 units Insulin Aspart (Novolog Vial Sliding Scale -) 1 vial SQ TIDAC [facility]; Protocol Last Admin: 04/17/19 06:17 Dose: Not Given Insulin Detemir (Levemir Vial) [address] [facility] Last Admin: 04/16/19 21:43 Dose: 3 units Lidocaine (Lidoderm Patch -) 1 patch TP DAILY [facility] Last Admin: 04/17/19 09:18 Dose: 1 patch Melatonin (Melatonin) [address] [facility] Last Admin: 04/16/19 21:42 Dose: 10 mg Methadone HCl (Dolophine -) 5 mg PO TID [facility] Last Admin: 04/17/19 06:10 Dose: 5 mg Miscellaneous (Lidoderm Patch Removal) 1 each MC DAILY@2200 [facility] Last Admin: 04/16/19 21:43 Dose: 1 each Morphine Sulfate (Morphine Sulfate) 4 mg IVPUSH Q4H PRN PRN Reason: PAIN LEVEL 6-10 Last Admin: 04/16/19 06:44 Dose: 4 mg Multivit/Ca Carb/B Cmplx/FA/Prenat (Nephro-Guilherme -) 1 tablet PO DAILY [facility] Last Admin: 04/17/19 09:14 Dose: Not Given Nifedipine (Procardia Xl -) 90 mg PO DAILY [facility] Last Admin: 04/17/19 09:18 Dose: 90 mg Petrolatum (Vaseline) 1 applic TP DAILY PRN PRN Reason: DRY SKIN Trazodone HCl 400 mg/ (Trazodone HCl 50 mg) [address] [facility] Last Admin: 04/16/19 22:23 Dose: 450 mg Vancomycin HCl (Vancomycin Oral Solution) 125 mg PO Q6HPO [facility] Last Admin: 04/17/19 06:09 Dose: 125 mg 63 year old gentleman with history of ESRD on HD (TTS), DM, PVD s/p BKA who presented from home with non-healing foot wound. 1. ESRD on HD 2. Infected foot wound 3. Anemia of CKD 4. Pseudohyponatremia 5. Metabolic acidosis 6. Leukocytosis 7. PVD 8 DM type 2 on insulin no acute need for dialysis today, next treatment tomorrow for OR today Transfuse for Hgb < 7 will maintain on TTS HD schedule while inpatient. Hgb is improved, will continue high dose ADRIAN continue Abx as per ID Thank you Miguel Jansen DO
[2019-04-17] MEDS ORDERED: PROPOFOL 20 ML ONE (12:45)
[2019-04-17] MEDS ORDERED: LIDOCAINE HCL/PF 2% SDV 5ML VIAL ONE (12:45)
[2019-04-17] MEDS ORDERED: ONDANSETRON 4 MG/2 ML VIAL IVPUSH PRN ×2 (13:01→16:07)
[2019-04-17] MEDS ORDERED: SODIUM CHLORIDE 1,000 ML IV SCH (13:15)
--- NOTE | 2019-04-17 13:28 | PN ---
Physical Exam: SUBJECTIVE: Patient seen and examined at the bedside. Noted that his pain is controlled. Denies any further episodes of diarrhea. Patient denies cp, sob, abd pain, n/v/c/d, fever, chills, weakness, numbness, tingling. Patient to have BKA revision today. OBJECTIVE: Vital Signs Period Temp Pulse Resp BP Sys/Gutierrez Pulse Ox Last 24 Hr 97.7 F-98.7 F 64-87 20-20 121-135/58-69 95-95 GENERAL: The patient is awake, alert, and fully oriented, in no acute distress. HEAD: Normal with no signs of trauma. EYES: PERRL, extraocular movements intact, sclera anicteric, conjunctiva clear. ENT: Oropharynx clear without exudates, moist mucous membranes. NECK: Trachea midline, full range of motion, supple. LUNGS: Breath sounds equal, clear to auscultation bilaterally, no wheezes, no crackles, no accessory muscle use. HEART: Regular rate and rhythm, S1, S2 without murmur, rubs. ABDOMEN: Soft, nontender, nondistended, normoactive bowel sounds, no guarding, no rebound, no masses. EXTREMITIES: Amputation L BKA and R BKA. Dressings dry on R side and in immobilizer. NEUROLOGICAL: Cranial nerves II through XII grossly intact. 5/5 muscle strength upper and lower extremities, bilaterally. L and R BKA. PSYCH: Normal mood and affect. Laboratory Results - last 24 hr 04/16/19 04/16/19 04/17/19 17:05 21:52 06:16 WBC RBC Hgb Hct MCV MCH MCHC RDW Plt Count MPV Sodium Potassium Chloride Carbon Dioxide Anion Gap BUN Creatinine Est GFR (CKD-EPI)AfAm Est GFR (CKD-EPI)NonAf POC Glucometer 317 325 105 Random Glucose Calcium Phosphorus Magnesium 04/17/19 04/17/19 04/17/19 06:40 06:40 10:17 WBC 15.6 H RBC 2.89 L Hgb 8.0 L Hct 26.0 L MCV 89.9 MCH 27.6 MCHC 30.7 L RDW 16.6 H Plt Count 465 H MPV 8.5 Sodium 141 Potassium 4.0 Chloride 103 Carbon Dioxide 32 Anion Gap 6 L BUN 26.7 H Creatinine 3.8 H Est GFR (CKD-EPI)AfAm 18.40 Est GFR (CKD-EPI)NonAf 15.88 POC Glucometer 104 Random Glucose 95 Calcium 7.8 L Phosphorus 3.2 Magnesium 2.2 Active Medications Generic Name Dose Route Start Last Admin Trade Name Freq PRN Reason Stop Dose Admin Albuterol Sulfate 1 amp 04/13/19 02:15 Ventolin 0.083% Nebulizer Soln - NEB Q4H PRN SHORT OF BREATH/WHEEZING Amino Acids 30 ml 04/13/19 17:30 04/17/19 09:14 Prosource No Carb Liquid Pkt PO Not Given BID@0800,1730 [facility] Calcium Acetate 1,334 mg 04/14/19 13:05 04/17/19 11:28 Phoslo - PO Not Given TIDCM [facility] Doxazosin Mesylate 4 mg 04/13/19 10:00 04/17/19 09:18 Cardura - PO 4 mg DAILY IGGY Administration Epoetin Joe 20,000 unit 04/18/19 08:00 Epogen - IVPUSH 04/18/19 08:01 ONCE ONE Fentanyl 50 mcg 04/17/19 13:01 Sublimaze Injection - IVPUSH [id number] PRN PAIN-PACU ORDER X 4 DOSES ONLY Fluticasone Propionate 1 spray 04/13/19 10:00 04/17/19 09:22 Flonase - NS 1 spray DAILY IGG[facility] Administration Gabapentin 300 mg 04/13/19 16:00 04/17/19 06:10 Neurontin - PO 300 mg TID IGGY Administration Piperacillin Sod/Tazobactam 50 mls @ 100 mls/hr 04/15/19 10:00 04/17/19 09:19 Sod 2.25 gm/ Dextrose IVPB 100 mls/hr BID IGGY Administration Protocol Sodium Chloride 250 mls @ 3,000 mls/hr 04/17/19 11:20 Normal Saline - IV 04/18/19 11:20 PRN PRN Hypotension during Dialysis Sodium Chloride 1,000 mls @ 42 mls/hr 04/17/19 13:15 Normal Saline - IV ASDIR [facility] Insulin Aspart 1 vial 04/13/19 22:00 04/16/19 21:53 Novolog Vial Sliding Scale - SQ 4 units HS IGGY Administration Protocol Insulin Aspart 1 vial 04/13/19 07:00 04/17/19 11:28 Novolog Vial Sliding Scale - SQ Not Given [facility] Protocol Insulin Detemir 3 units 04/16/19 22:00 04/16/19 21:43 Levemir Vial SQ 3 units HS IGGY Administration Lidocaine 1 patch 04/13/19 10:00 04/17/19 09:18 Lidoderm Patch - TP 1 patch DAILY I[facility] Administration Melatonin 10 mg 04/12/19 22:00 04/16/19 21:42 Melatonin PO 10 mg HS [facility] Administration Methadone HCl 5 mg 04/13/19 15:53 04/17/19 06:10 Dolophine - PO 5 mg TID IGGY Administration Miscellaneous 1 each 04/13/19 22:00 04/16/19 21:43 Lidoderm Patch Removal MC 1 each DAILY@2200 [facility] Administration Morphine Sulfate 4 mg 04/13/19 11:15 04/16/19 06:44 Morphine Sulfate IVPUSH 4 mg Q4H PRN Administration PAIN LEVEL 6-10 Multivit/Ca Carb/B Cmplx/FA/Prenat 1 tablet 04/14/19 10:00 04/17/19 09:14 Nephro-Guilherme - PO Not Given DAILY I[facility] Nifedipine 90 mg 04/13/19 10:00 04/17/19 09:18 Procardia Xl - PO 90 mg DAILY IGG[facility] Administration Ondansetron HCl 4 mg 04/17/19 13:01 Zofran Injection IVPUSH Q6H PRN NAUSEA AND/OR VOMITING Petrolatum 1 applic 04/13/19 02:15 Vaseline TP DAILY PRN DRY SKIN Trazodone HCl 400 mg/ 450 mg 04/13/19 22:00 04/16/19 22:23 Trazodone HCl 50 mg PO 450 mg HS I[facility] Administration Vancomycin HCl 125 mg 04/13/19 06:00 04/17/19 06:09 Vancomycin Oral Solution PO 125 mg Q6HPO IGGY Administration Vancomycin HCl 1,000 mg 04/18/19 08:00 Vancomycin (Pre-Docked) IVPB 04/18/19 08:01 ONCE ONE Protocol Microbiology 04/09/19 10:20 Blood - Peripheral Venous Blood Culture - Final NO GROWTH AFTER 5 DAYS INCUBATION 04/09/19 10:42 Blood - Peripheral Venous Blood Culture - Final NO GROWTH AFTER 5 DAYS INCUBATION 04/09/19 12:15 Foot - Rt Transmetatarsal Amp. Site Gram Stain - Final 04/09/19 12:15 Foot - Rt Transmetatarsal Amp. Site Wound Culture - Final Enterococcus Faecalis Mr S Aureus Morganella Morganii 04/07/19 18:00 Bone Gram Stain - Final 04/07/19 18:00 Bone Tissue Culture - Final Morganella Morganii Proteus Vulgaris Enterococcus Faecalis Mr S Aureus Alpha Hemolytic Streptococcus 04/07/19 18:00 Bone Anaerobic Culture - Final 04/07/19 17:30 Foot - Rt Transmetatarsal Amp. Site Gram Stain - Final 04/07/19 17:30 Foot - Rt Transmetatarsal Amp. Site Wound Culture - Final Morganella Morganii Enterococcus Faecalis Mr S Aureus Proteus Vulgaris 04/06/19 17:45 Foot - Right Gram Stain - Final 04/06/19 17:45 Foot - Right Wound Culture - Final Proteus Vulgaris Mr S Aureus Enterococcus Faecalis 04/08/19 16:10 Stool Clostridioides difficile Antigen - Final 04/08/19 16:10 Stool Clostridioides difficile Toxin Assay - Final 04/06/19 17:15 Blood - Peripheral Venous Blood Culture - Final Presumptive Mrsa (Pbp2a Pos) Streptococcus Mitis 04/06/19 17:45 Blood - Peripheral Venous Blood Culture - Final Mr S Aureus ASSESSMENT/PLAN: Luciano Judge is a 61 year old male with a past medical history of DM, HTN, ESRD on dialysis (TThS), left BKA, diabetic neuropathy, hx of MRSA bacteremia presenting for a sepsis from likely osteomyelitis of R foot. Sepsis from Osteomyelitis - elevated WBC and febrile 100.4, has been afebrile - foot x-ray with emphysematous changes, deformity, lucency, destructive changes of the distal head of third metatarsal, metatarsal head, base of R third proximal phalynx consistent with osteomyelitis - ID consulted, Vancomycin, random vanco levels to guide treatment, will need total 2 weeks of vancomycin - follow random vanco level to redose - on Zosyn, prophylaxis for OR procedure with vascular surgery, further Zosyn as per ID - bacteremia with blood culture growing MRSA, repeat blood cultures negative - wound culture as above, continue to follow - pathology results showing that bone margins clear after BKA, viable skin and soft tissue margins, portion of leg with abscesses - seen by podiatry and has undergone TMA and subsequent BKA guillotine, will undergo closure today - POD day #7 R BKA, POD #0 revision - echo ordered to evaluate for ?endocarditis, showing normal LV function, size, function, normal EF, ?poor LV compliance, borderline aortic root dilation, trace mitral regurg, mild pericardial effusion, no evidence of vegetation, further workup as per ID - hyperbaric consult as per podiatry - physical therapy after surgery ESRD - dialysis TThS schedule - avoid fluid overload - nephrology consulted, recs appreciated Diarrhea secondary to likely c diff - positive for c diff antigen - continue oral vancomycin 125mg q6h day 5 - no longer complains of diarrhea HTN - continue home meds - cardio consulted, recs appreciated DM - hold Levemir 12 units qAM, due to hypoglycemic episode, currently on Levemir 3 units as per endocrine - ISS - BGM - A1c 10.8 - will require tight insulin dosing in the setting of osteomyelitis - endocrinology consulted, recs appreciated Anemia - likely in setting of chronic renal disease - iron studies showing anemia of chronic disease - given Epogen during dialysis - continue to monitor H/H - 2 units of PRBCs total given during admission Shoulder pain/chronic pain - methadone 2.5mg tid, confirmed with [facility] and confirmed with patient's pharmacy [facility], last ordered and dispensed on 03/13 for a 30 day course, held currently in favor of morphine for pain control s/p BKA - morphine 4mg q4h prn - methadone increased to 5mg tid as per Dr. Carlos - gabapentin 300mg tid - lidocaine patch - pain management consulted Hx of PTSD - trazodone 450mg qhs Prophylaxis - heparin 5000 units subq bid FEN - no IVF, avoid fluid overload - continue to monitor electrolytes and replete as necessary - renal diet, with supplementation, restart after surgery Dispo - continue to monitor on Med-surg - will go to SNF after BKA and PT Visit type - Emergency Visit Emergency Visit: Yes ED Registration Date: 04/06/19 Care time: The patient presented to the Emergency Department on the above date and was hospitalized for further evaluation of their emergent condition. - New Patient This patient is new to me today: No - Critical Care Critical Care patient: No
--- NOTE | 2019-04-17 13:47 | PN ---
Teaching Attending Note Name of Resident: Srini Adame ATTENDING PHYSICIAN STATEMENT I saw and evaluated the patient. I reviewed the resident's note and discussed the case with the resident. I agree with the resident's findings and plan as documented. SUBJECTIVE: Comfortable POD 7 s/p BKA guillotine amputation 04/10/19 RLE. No fever/chills. No further diarrhea. OBJECTIVE: Afebrile, Hemodynamically Stable. On HD. Last Vital Signs Temp Pulse Resp BP Pulse Ox 97.7 F 71 20 121/63 95 04/17/19 09:02 04/17/19 09:02 04/17/19 09:02 04/17/19 09:02 04/17/19 09:00 Heart - S1, S2, RRR Chest - clear to auscultation Abdomen - Soft, non-tender. Bowel Sounds normal Extremities - LLE BKA, RLE in knee immobilizer and surgical site dressed. Neuro - AAO x 3. Moving all extremities. R and L BKA. Laboratory Results - last 24 hr 04/16/19 04/16/19 04/17/19 17:05 21:52 06:16 WBC RBC Hgb Hct MCV MCH MCHC RDW Plt Count MPV Sodium Potassium Chloride Carbon Dioxide Anion Gap BUN Creatinine Est GFR (CKD-EPI)AfAm Est GFR (CKD-EPI)NonAf POC Glucometer 317 325 105 Random Glucose Calcium Phosphorus Magnesium 04/17/19 04/17/19 04/17/19 06:40 06:40 10:17 WBC 15.6 H RBC 2.89 L Hgb 8.0 L Hct 26.0 L MCV 89.9 MCH 27.6 MCHC 30.7 L RDW 16.6 H Plt Count 465 H MPV 8.5 Sodium 141 Potassium 4.0 Chloride 103 Carbon Dioxide 32 Anion Gap 6 L BUN 26.7 H Creatinine 3.8 H Est GFR (CKD-EPI)AfAm 18.40 Est GFR (CKD-EPI)NonAf 15.88 POC Glucometer 104 Random Glucose 95 Calcium 7.8 L Phosphorus 3.2 Magnesium 2.2 Current Medications Generic Name Dose Route Start Last Admin Trade Name Freq PRN Reason Stop Dose Admin Albuterol Sulfate 1 amp 04/13/19 02:15 Ventolin 0.083% Nebulizer Soln - NEB Q4H PRN SHORT OF BREATH/WHEEZING Amino Acids 30 ml 04/13/19 17:30 04/17/19 09:14 Prosource No Carb Liquid Pkt PO Not Given BID@0800,1730 [facility] Calcium Acetate 1,334 mg 04/14/19 13:05 04/17/19 11:28 Phoslo - PO Not Given TIDCM [facility] Doxazosin Mesylate 4 mg 04/13/19 10:00 04/17/19 09:18 Cardura - PO 4 mg DAILY IGGY Administration Epoetin Joe 20,000 unit 04/18/19 08:00 Epogen - IVPUSH 04/18/19 08:01 ONCE ONE Fentanyl 50 mcg 04/17/19 13:01 Sublimaze Injection - IVPUSH [id number] PRN PAIN-PACU ORDER X 4 DOSES ONLY Fluticasone Propionate 1 spray 04/13/19 10:00 04/17/19 09:22 Flonase - NS 1 spray DAILY IGGY Administration Gabapentin 300 mg 04/13/19 16:00 04/17/19 06:10 Neurontin - PO 300 mg TID IGGY Administration Piperacillin Sod/Tazobactam 50 mls @ 100 mls/hr 04/15/19 10:00 04/17/19 09:19 Sod 2.25 gm/ Dextrose IVPB 100 mls/hr BID IGGY Administration Protocol Sodium Chloride 250 mls @ 3,000 mls/hr 04/17/19 11:20 Normal Saline - IV 04/18/19 11:20 PRN PRN Hypotension during Dialysis Sodium Chloride 1,000 mls @ 42 mls/hr 04/17/19 13:15 Normal Saline - IV ASDIR [facility] Insulin Aspart 1 vial 04/13/19 22:00 04/16/19 21:53 Novolog Vial Sliding Scale - SQ 4 units HS IGGY Administration Protocol Insulin Aspart 1 vial 04/13/19 07:00 04/17/19 11:28 Novolog Vial Sliding Scale - SQ Not Given TIDAC [facility] Protocol Insulin Detemir 3 units 04/16/19 22:00 04/16/19 21:43 Levemir Vial SQ 3 units HS IGGY Administration Lidocaine 1 patch 04/13/19 10:00 04/17/19 09:18 Lidoderm Patch - TP 1 patch DAILY IGGY Administration Melatonin 10 mg 04/12/19 22:00 04/16/19 21:42 Melatonin PO 10 mg HS IGGY Administration Methadone HCl 5 mg 04/13/19 15:53 04/17/19 06:10 Dolophine - PO 5 mg TID IGGY Administration Miscellaneous 1 each 04/13/19 22:00 04/16/19 21:43 Lidoderm Patch Removal MC 1 each DAILY@2199 IGG[facility] Administration Morphine Sulfate 4 mg 04/13/19 11:15 04/16/19 06:44 Morphine Sulfate IVPUSH 4 mg Q4H PRN Administration PAIN LEVEL 6-10 Multivit/Ca Carb/B Cmplx/FA/Prenat 1 tablet 04/14/19 10:00 04/17/19 09:14 Nephro-Guilherme - PO Not Given DAILY IGGY Nifedipine 90 mg 04/13/19 10:00 04/17/19 09:18 Procardia Xl - PO 90 mg DAILY IGGY Administration Ondansetron HCl 4 mg 04/17/19 13:01 Zofran Injection IVPUSH Q6H PRN NAUSEA AND/OR VOMITING Petrolatum 1 applic 04/13/19 02:15 Vaseline TP DAILY PRN DRY SKIN Trazodone HCl 400 mg/ 450 mg 04/13/19 22:00 04/16/19 22:23 Trazodone HCl 50 mg PO 450 mg HS IGGY Administration Vancomycin HCl 125 mg 04/13/19 06:00 04/17/19 06:09 Vancomycin Oral Solution PO 125 mg Q6HPO IGGY Administration Vancomycin HCl 1,000 mg 04/18/19 08:00 Vancomycin (Pre-Docked) IVPB 04/18/19 08:01 ONCE ONE Protocol Home Medications Medication Instructions Recorded Albuterol 0.083% Nebulizer Coretta 1 amp NEB Q4H PRN #120 amp 08/23/17 [Ventolin 0.083% Nebulizer Soln -] Fluticasone Prop 0.05% Nasal 1 - 2 spray NS DAILY #1 spray.pump 08/23/17 [Flonase -] Doxazosin Mesylate [Cardura -] 4 mg PO DAILY tablet 10/06/17 Gabapentin [Neurontin -] 100 mg PO BID capsule 10/06/17 Insulin Sliding Scale [Novolog 1 vial SQ ACHS units 10/06/17 Vial Sliding Scale -] Lidocaine 5% Patch [Lidoderm -] 1 patch TP DAILY patch 10/06/17 Lidocaine Patch Removal [Lidoderm 1 each MC DAILY@2199 each 10/06/17 Patch Removal] Insulin (Levemir) [Levemir Vial] 12 unit SQ DAILY@0700 04/07/19 Nifedipine ER [Procardia XL -] 90 mg PO DAILY 04/07/19 traZODone HCL [Desyrel -] 450 mg PO HS 04/07/19 Methadone [Dolophine -] 2.5 mg PO TID 04/16/19 ASSESSMENT/PLAN: 63 year old male with PMhx of ESRD on HD (TTS), IDDM, HTN, PVD s/p L BKA, Diabetic neuropathy, prior h/o MRSA bacteremia 09/2017 suspected from HD catheter , Right IJ thrombus in 09/2017 (suspected catheter related) admitted with progressive non-healing right foot swelling, redness, foul smelling discharge, chills. Right foot xray: soft tissue swelling with soft tissue emphysematous changes, deformities consistent with osteomyelitis noted 1. Sepsis secondary to R Foot Osteomyelitis/Cellulitis/Necrotizing fasciitis with Bacteremia POD 7 s/p guillotine amputation - BKA. As per Vascular, patient requires revision surgery, AKA MRSA/Strep mitis Bacteremia - source likely foot. Wound/Surgical/Bone Cx - polymicrobial as above. Blood Cx - Strep mitis/MRSA, repeat BCx negative Fever resolved, leukocytosis persistent TTE no evidence of vegetations - no indication for CHAKA as per Cardiology. Will defer to ID/Cardio re: optimal Ix for exclude endocarditis. Zosyn resumed in addition to Vanco fracisco-operatively. Continue IV Vancomycin for 2 weeks as per ID (dose to be given after HD). Scheduled to return to OR 04/17 2. ESRD on HD TTS via UE AVF No signs of infection at fistula site On Zosyn/Vancomycin Repeat Blood Cx negative Further Abx titration by ID. 3. DM 2 - uncontrolled, A1C 10.8. Hyperglycemia sec to infection/poor compliance Maintain on Novolog sliding scale. Levemir resumed at 3 units qhs. 4. HTN - Continue Nifedipine, Doxazosin 5. ESRD on HD TTS - Nephrology following. 6. Normocytic Anemia likely sec to ESRD - EPO as per Nephrology. H/H 8.0/26 s/ p fracisco-op transfusion of 2 units PRBCs 7. Chronic Pain Syndrome - discussed with pain management - Methadone dose increased to 5mg TID, along with increase in Gabapentin dose as per Pain Management recommendations. 8. Cdiff Ag positive/Toxin negative - diarrhea resolved. Continue Vanomycin PO. ID following. DVT Px - Heparin SQ
[2019-04-17] MEDS ORDERED: ceFAZolin SODIUM 1 GM VIAL ONE (13:54)
[2019-04-17] MEDS ORDERED: ceFAZolin SODIUM 1 GM VIAL IVPB ONE (13:54)
--- NOTE | 2019-04-17 15:31 | OP ---
Operative Note - Note: Operative Date: 04/17/19 Pre-Operative Diagnosis: right foot gangrene Operation: right below knee amputation Post-Operative Diagnosis: Same as Pre-op Surgeon: Al Daly Floor And Wall Applier Liquid: Apolinar Sism Anesthesia: Fractional Estimated Blood Loss (mls): 150 Operative Report Dictated: Yes
--- NOTE | 2019-04-17 15:58 | SURG ---
Surgery Cloud Security Architect Note Cloud Security Architect: Apolinar Sims PA-C Date of Service: 04/17/19 Diagnosis: right foot gangrene Procedure: right below knee amputation I was present for the entirety of the operative procedure. For further detail, please refer to operative report. Visit type - Case Type Case Type: ED Admission - Emergency Emergency Visit: Yes ED Registration Date: 04/06/19 Care time: The patient presented to the Emergency Department on the above date and was hospitalized for further evaluation of their emergent condition. - New patient This patient is new to me today: No - Critical Care Critical Care patient: No
[2019-04-17] MEDS ORDERED: ALBUTEROL SO4 0.083% IH SOL 2.5 MG/3 ML VIAL.NEB. NEB PRN (16:07)
[2019-04-17] MEDS ORDERED: PETROLATUM, WHITE 30 GM TUBE TP PRN (16:07)
[2019-04-17] MEDS ORDERED: morphine SULFATE 4 MG/ML VIAL ONE (18:15)
[2019-04-17] MEDS: morphine SULFATE 4 MG/ML VIAL IVPUSH PRN ×2 (18:17→23:01)
[2019-04-17] MEDS ORDERED: LIDOCAINE PATCH REMOVAL MC SCH (22:00)
[2019-04-17] MEDS: INSULIN (LEVEMIR) 100 UNITS/ML UNITS SQ SCH (22:06)
[2019-04-17] MEDS: MELATONIN 5 MG TABLETS PO SCH (22:06)
[2019-04-17] MEDS: LIDOCAINE PATCH REMOVAL MC SCH (22:07)
[2019-04-17] MEDS: SODIUM CHLORIDE 1,000 ML IV SCH (22:12)
[2019-04-17] MEDS: TRAZODONE HCL PO SCH (22:52)
[2019-04-18] MEDS: VANCOMYCIN 250 MG/5 ML ORAL SOLUTION PO SCH ×4 (00:20→18:31)
[2019-04-18] MEDS: GABAPENTIN 300 MG CAPSULE (FP) PO SCH ×3 (06:44→22:00)
[2019-04-18] MEDS: METHADONE HCL 5 MG TABLET PO SCH ×3 (06:44→22:00)
[2019-04-18] MEDS: INSULIN SLIDING SCALE (NOVOLOG) 1 VIAL SQ SCH ×4 (06:44→22:00)
[2019-04-18] MEDS ORDERED: VANCOMYCIN 1 GM in D5W (PRE-DOCKED) 1,000 MG/250 ML IVPB ONE (08:00)
[2019-04-18] MEDS ORDERED: EPOETIN ALFA 2,000 UNIT/1 ML VIAL IVPUSH ONE (08:00)
[2019-04-18] MEDS: CALCIUM ACETATE 667 MG CAPSULE (FP) PO SCH ×3 (08:00→17:19)
[2019-04-18 08:01] LABS: HEMOGLOBIN 7.8 GM/dL (11.7-16.9); MCH 28.5 pg (25.7-33.7); MCHC 31.1 g/dl (32.0-35.9); MEAN CELL VOLUME 91.7 fl (80-96); MEAN PLT VOLUME 8.7 fl (7.5-11.1); PLATELET COUNT 469 K/MM3 (134-434); RBC 2.73 M/mm3 (4.00-5.60); RDW 16.3 % (11.9-15.9); WHITE BLOOD COUNT 15.5 K/mm3 (4.0-10.0)
[2019-04-18 08:20] LABS: BLOOD UREA NITROGEN 38.6 mg/dL (7-18); CALCIUM 7.4 mg/dL (8.5-10.1); PHOSPHOROUS 4.4 mg/dL (2.5-4.9); POTASSIUM 4.4 mmol/L (3.5-5.1)
[2019-04-18] MEDS ORDERED: SODIUM CHLORIDE 250 ML IV PRN (08:51)
[2019-04-18] MEDS ORDERED: EPOETIN ALFA 20,000 UNIT/1 ML VIAL IVPUSH ONE (09:00)
[2019-04-18] MEDS ORDERED: VANCOMYCIN 1,000 MG in DEXTROSE 5%-WATER - 250 ML IVPB ONE (09:00)
--- NOTE | 2019-04-18 10:50 | PN ---
Progress Note, Physician History of Present Illness: stable post bka - Current Medication List Current Medications: Active Medications Albuterol Sulfate (Ventolin 0.083% Nebulizer Soln -) 1 amp NEB Q4H PRN PRN Reason: SHORT OF BREATH/WHEEZING Amino Acids (Prosource No Carb Liquid Pkt) 30 ml PO BID@0800,1730 [facility] Last Admin: 04/17/19 17:54 Dose: 30 ml Calcium Acetate (Phoslo -) 1,334 mg PO TIDCM [facility] Last Admin: 04/17/19 17:55 Dose: 1,334 mg Doxazosin Mesylate (Cardura -) 4 mg PO DAILY [facility] Fentanyl (Sublimaze Injection -) 50 mcg IVPUSH [id number] PRN PRN Reason: PAIN-PACU ORDER X 4 DOSES ONLY Fluticasone Propionate (Flonase -) 1 spray NS DAILY [facility] Gabapentin (Neurontin -) 300 mg PO TID [facility] Last Admin: 04/18/19 06:44 Dose: 300 mg Sodium Chloride (Normal Saline -) 1,000 mls @ 42 mls/hr IV ASDIR [facility] Last Admin: 04/17/19 22:12 Dose: 42 mls/hr Piperacillin Sod/Tazobactam (Sod 2.25 gm/ Dextrose) 50 mls @ 100 mls/hr IVPB BID [facility]; Protocol Last Admin: 04/17/19 22:08 Dose: 100 mls/hr Insulin Aspart (Novolog Vial Sliding Scale -) 1 vial SQ HS [facility]; Protocol Last Admin: 04/17/19 22:07 Dose: 2 units Insulin Aspart (Novolog Vial Sliding Scale -) 1 vial SQ TIDAC [facility]; Protocol Last Admin: 04/18/19 06:44 Dose: 2 units Insulin Detemir (Levemir Vial) 3 units SQ HS [facility] Last Admin: 04/17/19 22:06 Dose: 3 units Lidocaine (Lidoderm Patch -) 1 patch TP DAILY [facility] Melatonin (Melatonin) 10 mg PO HS [facility] Last Admin: 04/17/19 22:06 Dose: 10 mg Methadone HCl (Dolophine -) 5 mg PO TID [facility] Last Admin: 04/18/19 06:44 Dose: 5 mg Miscellaneous (Lidoderm Patch Removal) 1 each MC DAILY@2200 [facility] Last Admin: 04/17/19 22:07 Dose: 1 each Morphine Sulfate (Morphine Sulfate) 4 mg IVPUSH Q4H PRN PRN Reason: PAIN LEVEL 6-10 Last Admin: 04/17/19 23:01 Dose: 4 mg Multivit/Ca Carb/B Cmplx/FA/Prenat (Nephro-Guilherme -) 1 tablet PO DAILY [facility] Nifedipine (Procardia Xl -) 90 mg PO DAILY [facility] Ondansetron HCl (Zofran Injection) 4 mg IVPUSH Q6H PRN PRN Reason: NAUSEA AND/OR VOMITING Petrolatum (Vaseline) 1 applic TP DAILY PRN PRN Reason: DRY SKIN Trazodone HCl 400 mg/ (Trazodone HCl 50 mg) 450 mg PO HS [facility] Last Admin: 04/17/19 22:52 Dose: 450 mg Vancomycin HCl (Vancomycin Oral Solution) 125 mg PO Q6HPO [facility] Last Admin: 04/18/19 06:45 Dose: 125 mg - Objective Vital Signs: Vital Signs Temperature 98.0 F 04/18/19 06:44 Pulse Rate 78 04/18/19 09:45 Respiratory Rate 18 04/18/19 09:45 Blood Pressure 120/71 04/18/19 09:45 O2 Sat by Pulse Oximetry (%) 97 04/17/19 21:00 Constitutional: Yes: Calm, Mild Distress Cardiovascular: Yes: S1, S2 Respiratory: Yes: Regular, CTA Bilaterally Musculoskeletal: Yes: WNL Extremities: Yes: Other (amputation) Neurological: Yes: Alert, Oriented Psychiatric: Yes: Alert, Oriented Labs: CBC, BMP 04/18/19 07:15 04/18/19 07:15 INR, PTT INR 1.15 (0.83-1.09) H 04/16/19 07:45 Assessment/Plan 61 year old male with a past medical history of DM, HTN, ESRD on dialysis (TThS) , left BKA, diabetic neuropathy, hx of MRSA bacteremia, presenting for a sepsis from likely osteomyelitis of R foot. sepsis osteo r foot esrd htn dm gas gangrene mrsa bacteremia Problem List - Problems (1) Diabetes Code(s): E11.9 - TYPE 2 DIABETES MELLITUS WITHOUT COMPLICATIONS (2) Diastolic CHF Code(s): I50.30 - UNSPECIFIED DIASTOLIC (CONGESTIVE) HEART FAILURE (3) ESRD (end stage renal disease) on dialysis Code(s): N18.6 - END STAGE RENAL DISEASE; Z99.2 - DEPENDENCE ON RENAL DIALYSIS (4) Gangrene of right foot Code(s): I96 - GANGRENE, NOT ELSEWHERE CLASSIFIED (5) HTN (hypertension) Code(s): I10 - ESSENTIAL (PRIMARY) HYPERTENSION (6) Status post amputation of right foot Code(s): Z89.431 - ACQUIRED ABSENCE OF RIGHT FOOT (7) Amputation, below knee, unilateral, traumatic Code(s): S88.119A - COMPLETE TRAUM AMP AT LEV BETW KN & ANKL, UNSP LOW LEG, INIT Qualifiers: Encounter type: subsequent encounter Laterality: left Qualified Code(s): S88.112D - Complete traumatic amputation at level between knee and ankle, left lower leg, subsequent encounter (8) Bacteremia due to Gram-positive bacteria Code(s): R78.81 - BACTEREMIA (9) Hemodialysis access, AV graft Code(s): Z99.2 - DEPENDENCE ON RENAL DIALYSIS (10) Osteomyelitis of right foot Code(s): M86.9 - OSTEOMYELITIS, UNSPECIFIED Qualifiers: (11) Peripheral vascular disease due to secondary diabetes Code(s): E13.51 - OTH DIABETES W DIABETIC PERIPHERAL ANGIOPATHY W/O GANGRENE (12) Sepsis Code(s): A41.9 - SEPSIS, UNSPECIFIED ORGANISM Qualifiers: Sepsis type: methicillin susceptible Staphylococcus aureus Qualified Code(s ): A41.01 - Sepsis due to Methicillin susceptible Staphylococcus aureus (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
[2019-04-18] MEDS ORDERED: PT OWN MED DRAWER 7, Y5N ONE (11:25)
[2019-04-18] MEDS ORDERED: PIPERACILLIN/TAZOBACTAM 2.25 GM VIAL IVPB ONE ×2 (11:25→21:42)
[2019-04-18] MEDS ORDERED: DEXTROSE 5%-WATER - 50 ML IVPB ONE ×2 (11:25→21:42)
--- NOTE | 2019-04-18 11:29 | PN ---
Teaching Attending Note Name of Resident: Marcia Perez ATTENDING PHYSICIAN STATEMENT I saw and evaluated the patient. I reviewed the resident's note and discussed the case with the resident. I agree with the resident's findings and plan as documented. SUBJECTIVE: Comfortable POD 8 s/p BKA guillotine amputation 04/10/19 RLE and POD 1 s/p revision and wound closure. No fever/chills. No further diarrhea. OBJECTIVE: Afebrile, Hemodynamically Stable. Last Vital Signs Temp Pulse Resp BP Pulse Ox 98.0 F 78 18 120/71 97 04/18/19 06:44 04/18/19 09:45 04/18/19 09:45 04/18/19 09:45 04/17/19 21:00 Heart - S1, S2, RRR Chest - clear to auscultation Abdomen - Soft, non-tender. Bowel Sounds normal Extremities - LLE BKA (clean stump), RLE surgical site dressed. Neuro - AAO x 3. Moving all extremities. R and L BKA. Laboratory Results - last 24 hr 04/14/19 04/17/19 04/18/19 10:00 22:04 06:42 WBC RBC Hgb Hct MCV MCH MCHC RDW Plt Count MPV Sodium Potassium Chloride Carbon Dioxide Anion Gap BUN Creatinine Est GFR (CKD-EPI)AfAm Est GFR (CKD-EPI)NonAf POC Glucometer 226 194 Random Glucose Calcium Phosphorus Random Vancomycin Blood Type B POSITIVE Antibody Screen Negative Crossmatch See Detail Crossmatch IS Only See Detail 04/18/19 04/18/19 04/18/19 07:15 07:15 07:15 WBC RBC Hgb Hct MCV MCH MCHC RDW Plt Count MPV Sodium 139 Potassium 4.4 Chloride 102 Carbon Dioxide 32 Anion Gap 5 L BUN 38.6 H Creatinine 5.0 H Est GFR (CKD-EPI)AfAm 13.20 Est GFR (CKD-EPI)NonAf 11.39 POC Glucometer Random Glucose 203 H Calcium 7.4 L Phosphorus 4.4 Random Vancomycin 16.6 L Blood Type B POSITIVE Antibody Screen Negative Crossmatch Crossmatch IS Only 04/18/19 07:15 WBC 15.5 H RBC 2.73 L Hgb 7.8 L Hct 25.0 L MCV 91.7 MCH 28.5 MCHC 31.1 L RDW 16.3 H Plt Count 469 H MPV 8.7 Sodium Potassium Chloride Carbon Dioxide Anion Gap BUN Creatinine Est GFR (CKD-EPI)AfAm Est GFR (CKD-EPI)NonAf POC Glucometer Random Glucose Calcium Phosphorus Random Vancomycin Blood Type Antibody Screen Crossmatch Crossmatch IS Only Current Medications Generic Name Dose Route Start Last Admin Trade Name Freq PRN Reason Stop Dose Admin Albuterol Sulfate 1 amp 04/17/19 16:07 Ventolin 0.083% Nebulizer Soln - NEB Q4H PRN SHORT OF BREATH/WHEEZING Amino Acids 30 ml 04/17/19 17:30 04/17/19 17:54 Prosource No Carb Liquid Pkt PO 30 ml BID@0800,1730 IGGY Administration Calcium Acetate 1,334 mg 04/17/19 17:30 04/17/19 17:55 Phoslo - PO 1,334 mg TIDCM IGGY Administration Doxazosin Mesylate 4 mg 04/18/19 10:00 Cardura - PO DAILY IGGY Fentanyl 50 mcg 04/17/19 16:07 Sublimaze Injection - IVPUSH [id number] PRN PAIN-PACU ORDER X 4 DOSES ONLY Fluticasone Propionate 1 spray 04/18/19 10:00 Flonase - NS DAILY IGGY Gabapentin 300 mg 04/17/19 22:00 04/18/19 06:44 Neurontin - PO 300 mg TID IGGY Administration Sodium Chloride 1,000 mls @ 42 mls/hr 04/17/19 16:07 04/17/19 22:12 Normal Saline - IV 42 mls/hr ASDIR IGGY Administration Piperacillin Sod/Tazobactam 50 mls @ 100 mls/hr 04/17/19 22:00 04/17/19 22:08 Sod 2.25 gm/ Dextrose IVPB 100 mls/hr BID IGGY Administration Protocol Insulin Aspart 1 vial 04/17/19 22:00 04/17/19 22:07 Novolog Vial Sliding Scale - SQ 2 units HS IGGY Administration Protocol Insulin Aspart 1 vial 04/17/19 16:30 04/18/19 06:44 Novolog Vial Sliding Scale - SQ 2 units TIDAC IGGY Administration Protocol Insulin Detemir 3 units 04/17/19 22:00 04/17/19 22:06 Levemir Vial SQ 3 units HS IGGY Administration Lidocaine 1 patch 04/18/19 10:00 Lidoderm Patch - TP DAILY IGGY Melatonin 10 mg 04/17/19 22:00 04/17/19 22:06 Melatonin PO 10 mg HS IGGY Administration Methadone HCl 5 mg 04/17/19 22:00 04/18/19 06:44 Dolophine - PO 5 mg TID IGGY Administration Miscellaneous 1 each 04/17/19 22:00 04/17/19 22:07 Lidoderm Patch Removal MC 1 each DAILY@2200 IGGY Administration Morphine Sulfate 4 mg 04/17/19 16:07 04/17/19 23:01 Morphine Sulfate IVPUSH 4 mg Q4H PRN Administration PAIN LEVEL 6-10 Multivit/Ca Carb/B Cmplx/FA/Prenat 1 tablet 04/18/19 10:00 Nephro-Guilherme - PO DAILY IGGY Nifedipine 90 mg 04/18/19 10:00 Procardia Xl - PO DAILY IGGY Ondansetron HCl 4 mg 04/17/19 16:07 Zofran Injection IVPUSH Q6H PRN NAUSEA AND/OR VOMITING Petrolatum 1 applic 04/17/19 16:07 Vaseline TP DAILY PRN DRY SKIN Trazodone HCl 400 mg/ 450 mg 04/17/19 22:00 04/17/19 22:52 Trazodone HCl 50 mg PO 450 mg HS IGGY Administration Vancomycin HCl 125 mg 04/17/19 18:00 04/18/19 06:45 Vancomycin Oral Solution PO 125 mg Q6HPO IGGY Administration Home Medications Medication Instructions Recorded Albuterol 0.083% Nebulizer Coretta 1 amp NEB Q4H PRN #120 amp 08/23/17 [Ventolin 0.083% Nebulizer Soln -] Fluticasone Prop 0.05% Nasal 1 - 2 spray NS DAILY #1 spray.pump 08/23/17 [Flonase -] Doxazosin Mesylate [Cardura -] 4 mg PO DAILY tablet 10/06/17 Gabapentin [Neurontin -] 100 mg PO BID capsule 10/06/17 Insulin Sliding Scale [Novolog 1 vial SQ ACHS units 10/06/17 Vial Sliding Scale -] Lidocaine 5% Patch [Lidoderm -] 1 patch TP DAILY patch 10/06/17 Lidocaine Patch Removal [Lidoderm 1 each MC DAILY@2200 each 10/06/17 Patch Removal] Insulin (Levemir) [Levemir Vial] 12 unit SQ DAILY@0700 04/07/19 Nifedipine ER [Procardia XL -] 90 mg PO DAILY 04/07/19 traZODone HCL [Desyrel -] 450 mg PO HS 04/07/19 Methadone [Dolophine -] 2.5 mg PO TID 04/16/19 Microbiology 04/09/19 10:20 Blood - Peripheral Venous Blood Culture - Final NO GROWTH AFTER 5 DAYS INCUBATION 04/09/19 10:42 Blood - Peripheral Venous Blood Culture - Final NO GROWTH AFTER 5 DAYS INCUBATION 04/09/19 12:15 Foot - Rt Transmetatarsal Amp. Site Gram Stain - Final 04/09/19 12:15 Foot - Rt Transmetatarsal Amp. Site Wound Culture - Final Enterococcus Faecalis Mr S Aureus Morganella Morganii 04/07/19 18:00 Bone Gram Stain - Final 04/07/19 18:00 Bone Tissue Culture - Final Morganella Morganii Proteus Vulgaris Enterococcus Faecalis Mr S Aureus Alpha Hemolytic Streptococcus 04/07/19 18:00 Bone Anaerobic Culture - Final 04/07/19 17:30 Foot - Rt Transmetatarsal Amp. Site Gram Stain - Final 04/07/19 17:30 Foot - Rt Transmetatarsal Amp. Site Wound Culture - Final Morganella Morganii Enterococcus Faecalis Mr S Aureus Proteus Vulgaris 04/06/19 17:45 Foot - Right Gram Stain - Final 04/06/19 17:45 Foot - Right Wound Culture - Final Proteus Vulgaris Mr S Aureus Enterococcus Faecalis 04/08/19 16:10 Stool Clostridioides difficile Antigen - Final 04/08/19 16:10 Stool Clostridioides difficile Toxin Assay - Final 04/06/19 17:15 Blood - Peripheral Venous Blood Culture - Final Presumptive Mrsa (Pbp2a Pos) Streptococcus Mitis 04/06/19 17:45 Blood - Peripheral Venous Blood Culture - Final Mr S Aureus ASSESSMENT/PLAN: 63 year old male with PMhx of ESRD on HD (TTS), IDDM, HTN, PVD s/p L BKA, Diabetic neuropathy, prior h/o MRSA bacteremia 09/2017 suspected from HD catheter , Right IJ thrombus in 09/2017 (suspected catheter related) admitted with progressive non-healing right foot swelling, redness, foul smelling discharge, chills. Right foot xray: soft tissue swelling with soft tissue emphysematous changes, deformities consistent with osteomyelitis noted 1. Sepsis secondary to R Foot Osteomyelitis/Cellulitis/Necrotizing fasciitis with Bacteremia POD 8 s/p guillotine amputation - BKA and POD 1 s/p revision surgery 03/18/19 MRSA/Strep mitis Bacteremia - source likely foot. Wound/Surgical/Bone Cx - polymicrobial as above. Blood Cx - Strep mitis/MRSA, repeat BCx negative Fever resolved, leukocytosis persistent - Monitor WBC. TTE no evidence of vegetations - no indication for CHAKA as per Cardiology. Will defer to ID/Cardio re: optimal Ix for exclude endocarditis. Zosyn to be stopped 04/19 and IV Vancomycin continued for total 2 weeks as per ID (dose to be given after HD). Awaiting placement/rehab. 2. ESRD on HD TTS via UE AVF No signs of infection at fistula site On Zosyn/Vancomycin Repeat Blood Cx negative Further Abx titration by ID. 3. DM 2 - uncontrolled, A1C 10.8. Hyperglycemia on presentation sec to infection /poor compliance Maintain on Novolog sliding scale. Levemir resumed at 3 units qhs. 4. HTN - Continue Nifedipine, Doxazosin 5. ESRD on HD TTS - Nephrology following. 6. Normocytic Anemia likely sec to ESRD - EPO as per Nephrology. H/H 7.8/25 s/ p fracisco-op transfusion of 2 units PRBCs 7. Chronic Pain Syndrome - discussed with pain management - Methadone dose increased to 5mg TID, along with increase in Gabapentin dose and Morphine PRN fracisco-operatively as per Pain Management recommendations. 8. Cdiff Ag positive/Toxin negative - diarrhea resolved. Continue Vanomycin PO. ID following. DVT Px - Heparin SQ
[2019-04-18] MEDS: morphine SULFATE 4 MG/ML VIAL IVPUSH PRN (11:30)
[2019-04-18] MEDS: PIPERACILLIN/TAZOB 2.25 GM 2.25 GM in DEXTROSE 5%-WATER - 50 ML IVPB SCH ×2 (11:35→22:00)
[2019-04-18] MEDS: VITAMIN B COMP W-C 1 EA TABLET PO SCH (11:37)
[2019-04-18] MEDS: NIFEdipine E.R. 90 MG TABLET (FP) PO SCH (11:38)
[2019-04-18] MEDS: DOXAZOSIN MESYLATE 4 MG TABLET PO SCH (11:38)
[2019-04-18] MEDS: LIDOCAINE 5% TOPICAL PATCH TP SCH (11:43)
[2019-04-18] MEDS: AMINO ACIDS/PROTEIN HYDROLYS 30 ML LIQUID.PKT PO SCH ×2 (11:43→17:18)
[2019-04-18] MEDS: FLUTICASONE PROP 0.05% 16 GM NASAL SPRAY NS SCH (11:46)
--- NOTE | 2019-04-18 12:08 | PN ---
Progress Note, Physician History of Present Illness: POD#8 post right BKA, POD#1 revision and wound closure. Pain adequately controlled. - Current Medication List Current Medications: Active Medications Albuterol Sulfate (Ventolin 0.083% Nebulizer Soln -) 1 amp NEB Q4H PRN PRN Reason: SHORT OF BREATH/WHEEZING Amino Acids (Prosource No Carb Liquid Pkt) 30 ml PO BID@0800,1730 [facility] Last Admin: 04/18/19 11:43 Dose: 30 ml Calcium Acetate (Phoslo -) 1,334 mg PO TIDCM [facility] Last Admin: 04/18/19 11:30 Dose: 1,334 mg Doxazosin Mesylate (Cardura -) 4 mg PO DAILY [facility] Last Admin: 04/18/19 11:38 Dose: 4 mg Fentanyl (Sublimaze Injection -) 50 mcg IVPUSH [id number] PRN PRN Reason: PAIN-PACU ORDER X 4 DOSES ONLY Fluticasone Propionate (Flonase -) 1 spray NS DAILY [facility] Last Admin: 04/18/19 11:46 Dose: 1 spray Gabapentin (Neurontin -) 300 mg PO TID [facility] Last Admin: 04/18/19 06:44 Dose: 300 mg Sodium Chloride (Normal Saline -) 1,000 mls @ 42 mls/hr IV ASDIR [facility] Last Admin: 04/17/19 22:12 Dose: 42 mls/hr Piperacillin Sod/Tazobactam (Sod 2.25 gm/ Dextrose) 50 mls @ 100 mls/hr IVPB BID [facility]; Protocol Last Admin: 04/18/19 11:35 Dose: 100 mls/hr Insulin Aspart (Novolog Vial Sliding Scale -) 1 vial SQ HS [facility]; Protocol Last Admin: 04/17/19 22:07 Dose: 2 units Insulin Aspart (Novolog Vial Sliding Scale -) 1 vial SQ TIDAC [facility]; Protocol Last Admin: 04/18/19 11:53 Dose: 5 units Insulin Detemir (Levemir Vial) 3 units SQ HS [facility] Last Admin: 04/17/19 22:06 Dose: 3 units Lidocaine (Lidoderm Patch -) 1 patch TP DAILY [facility] Last Admin: 04/18/19 11:43 Dose: 1 patch Melatonin (Melatonin) 10 mg PO HS [facility] Last Admin: 04/17/19 22:06 Dose: 10 mg Methadone HCl (Dolophine -) 5 mg PO TID [facility] Last Admin: 04/18/19 06:44 Dose: 5 mg Miscellaneous (Lidoderm Patch Removal) 1 each MC DAILY@2200 [facility] Last Admin: 04/17/19 22:07 Dose: 1 each Morphine Sulfate (Morphine Sulfate) 4 mg IVPUSH Q4H PRN PRN Reason: PAIN LEVEL 6-10 Last Admin: 04/18/19 11:30 Dose: 4 mg Multivit/Ca Carb/B Cmplx/FA/Prenat (Nephro-Guilherme -) 1 tablet PO DAILY [facility] Last Admin: 04/18/19 11:37 Dose: 1 tablet Nifedipine (Procardia Xl -) 90 mg PO DAILY [facility] Last Admin: 04/18/19 11:38 Dose: 90 mg Ondansetron HCl (Zofran Injection) 4 mg IVPUSH Q6H PRN PRN Reason: NAUSEA AND/OR VOMITING Petrolatum (Vaseline) 1 applic TP DAILY PRN PRN Reason: DRY SKIN Trazodone HCl 400 mg/ (Trazodone HCl 50 mg) 450 mg PO HS [facility] Last Admin: 04/17/19 22:52 Dose: 450 mg Vancomycin HCl (Vancomycin Oral Solution) 125 mg PO Q6HPO [facility] Last Admin: 04/18/19 11:55 Dose: 125 mg - Objective Vital Signs: Vital Signs Temperature 98.0 F 04/18/19 12:00 Pulse Rate 75 04/18/19 12:00 Respiratory Rate 18 04/18/19 12:00 Blood Pressure 135/64 04/18/19 12:00 O2 Sat by Pulse Oximetry (%) 97 04/17/19 21:00 Constitutional: Yes: No Distress, Calm Neck: Yes: Supple Cardiovascular: Yes: Regular Rate and Rhythm Respiratory: Yes: Regular, CTA Bilaterally Gastrointestinal: Yes: Normal Bowel Sounds, Soft Extremities: Yes: Amputation (Bilateral BKA) Edema: No Labs: CBC, BMP 04/18/19 07:15 INR, PTT INR 1.15 (0.83-1.09) H 04/16/19 07:45 Problem List - Problems (1) Cellulitis of right foot Code(s): L03.115 - CELLULITIS OF RIGHT LOWER LIMB (2) ESRD (end stage renal disease) on dialysis Code(s): N18.6 - END STAGE RENAL DISEASE; Z99.2 - DEPENDENCE ON RENAL DIALYSIS (3) Uncontrolled diabetes mellitus Code(s): E11.65 - TYPE 2 DIABETES MELLITUS WITH HYPERGLYCEMIA Qualifiers: Diabetes mellitus type: type 2 Glycemic state: with hyperglycemia Qualified Code(s): E11.65 - Type 2 diabetes mellitus with hyperglycemia (4) Anemia Code(s): D64.9 - ANEMIA, UNSPECIFIED Qualifiers: Anemia type: due to chronic kidney disease Chronic kidney disease stage: on chronic dialysis Qualified Code(s): N18.6 - End stage renal disease; D63.1 - Anemia in chronic kidney disease; Z99.2 - Dependence on renal dialysis (5) Foot infection Code(s): L08.9 - LOCAL INFECTION OF THE SKIN AND SUBCUTANEOUS TISSUE, UNSP (6) Bacteremia due to Gram-positive bacteria Code(s): R78.81 - BACTEREMIA (7) ESRD (end stage renal disease) Code(s): N18.6 - END STAGE RENAL DISEASE (8) Peripheral vascular disease due to secondary diabetes Code(s): E13.51 - OTH DIABETES W DIABETIC PERIPHERAL ANGIOPATHY W/O GANGRENE (9) Diabetic neuropathy Code(s): E11.40 - TYPE 2 DIABETES MELLITUS WITH DIABETIC NEUROPATHY, UNSP Qualifiers: Diabetes mellitus type: type 2 Diabetes mellitus complication detail: diabetic polyneuropathy Qualified Code(s): E11.42 - Type 2 diabetes mellitus with diabetic polyneuropathy (10) Osteomyelitis Code(s): M86.9 - OSTEOMYELITIS, UNSPECIFIED Qualifiers: Osteomyelitis type: other chronic Osteomyelitis location: foot (11) Type 2 diabetes mellitus with foot ulcer Code(s): E11.621 - TYPE 2 DIABETES MELLITUS WITH FOOT ULCER; L97.509 - NON- PRESSURE CHRONIC ULCER OTH PRT UNSP FOOT W UNSP SEVERITY Qualifiers: Diabetes mellitus usp insulin use: with usp use Qualified Code( s): E11.621 - Type 2 diabetes mellitus with foot ulcer; L97.509 - Non-pressure chronic ulcer of other part of unspecified foot with unspecified severity; Z79.4 - intermodal dispatcher (current) use of insulin (12) Below-knee amputation Code(s): S88.119A - COMPLETE TRAUM AMP AT LEV BETW KN & ANKL, UNSP LOW LEG, INIT Assessment/Plan 10/15/2018 Echo: Mod cLVH with normal LV and RV size and fxn, tr-mild MR 09/30/2017 CHAKA: Normal biventricular size and fxn, mild AR, IA, MR, no SIS thrombus or vegetations 1. MRSA bacteremia from osteomyelitis of R foot s/p RLE BKA POD#1 BKA revision and wound closure 2. ESRD on HD TThS, suspected diabetic nephropathy 3. Moderate pericardial effusion referable to uremic pericarditis since resolved 4. Insulin-dependent Type 2 DM c/b neuropathy uncontrolled, A1C 10.8 5. HTN/HCVD 6. PAD 7. Anemia of chronic kidney disease 8. H/o Right IJ/SCV thrombus probably catheter related 9. PAD s/p left BKA 10. History of substance abuse currently on Methadone PLAN: 1. Vanco/Zosyn course per ID, f/u cultures confirms bacteremia clearance, wound care, HBO2. 2. Continue Cardura 4 qd, Procardia XL 90 qd 3. Would defer CHAKA unless persistently bacteremic and we are looking for additional source besides established right foot osteomyeleitis, 04/09 bld cx document clearance 4. Monitor Hgb and transfuse as needed to maintain Hgb>7.0, continue high dose ADRIAN 5. TThS HD per renal
[2019-04-18 12:16] LABS: BLOOD UREA NITROGEN 16.1 mg/dL (7-18); CREATININE 2.5 mg/dL (0.55-1.3)
--- NOTE | 2019-04-18 12:40 | PN ---
Physical Exam: SUBJECTIVE: Patient seen and examined this AM while undergoing HD. S/P right BKA POD#1. Pain controlled. No associated fevers, chills, chest pain, SOB, Nausea, vomiting, diarrhea. OBJECTIVE: Vital Signs Period Temp Pulse Resp BP Sys/Gutierrez Pulse Ox Last 24 Hr 97.5 F-98.7 F 64-81 16-20 102-155/56-80 97-99 GENERAL: A&Ox3, NAD HEAD: NCAT EYES: PERRL, EOMI ENT: MMM NECK: Supple, No JVD LUNGS: Diminished breath sounds at the bases, no wheezes, no crackles HEART: Regular rate and rhythm, S1, S2 without murmur ABDOMEN: Soft, nontender, nondistended, + bowel sounds, no guarding EXTREMITIES: B/L BKA, R dressing CDI, R knee in immobilizer. RUE AVF NEUROLOGICAL: Cranial nerves II through XII grossly intact. SKIN: Warm, dry Laboratory Last Values WBC 15.5 K/mm3 (4.0-10.0) H 04/18/19 07:15 RBC 2.73 M/mm3 (4.00-5.60) L 04/18/19 07:15 Hgb 7.8 GM/dL (11.7-16.9) L 04/18/19 07:15 Hct 25.0 % (35.4-49) L 04/18/19 07:15 MCV 91.7 fl (80-96) 04/18/19 07:15 MCH 28.5 pg (25.7-33.7) 04/18/19 07:15 MCHC 31.1 g/dl (32.0-35.9) L 04/18/19 07:15 RDW 16.3 % (11.9-15.9) H 04/18/19 07:15 Plt Count 469 K/MM3 (134-434) H 04/18/19 07:15 MPV 8.7 fl (7.5-11.1) 04/18/19 07:15 Absolute Neuts (auto) 10.8 K/mm3 (1.5-8.0) H 04/12/19 09:30 Neutrophils % 84.3 % (42.8-82.8) H 04/12/19 09:30 Neutrophils % (Manual) 94.0 % (42.8-82.8) H 04/10/19 07:20 Band Neutrophils % 0.0 % 04/10/19 07:20 Lymphocytes % 8.7 % (8-40) D 04/12/19 09:30 Lymphocytes % (Manual) 4.0 % (8-40) L D 04/10/19 07:20 Monocytes % 5.3 % (3.8-10.2) 04/12/19 09:30 Monocytes % (Manual) 2 % (3.8-10.2) L 04/10/19 07:20 Eosinophils % 1.3 % (0-4.5) D 04/12/19 09:30 Eosinophils % (Manual) 0.0 % (0-4.5) D 04/10/19 07:20 Basophils % 0.4 % (0-2.0) 04/12/19 09:30 Basophils % (Manual) 0.0 % (0-2.0) 04/10/19 07:20 Myelocytes % (Man) 0 % (0-2) 04/10/19 07:20 Promyelocytes % (Man) 0 % (0-2) 04/10/19 07:20 Blast Cells % (Manual) 0 % (0-0) 04/10/19 07:20 Nucleated RBC % 0 % (0-0) 04/12/19 09:30 Metamyelocytes 0 % (0-2) 04/10/19 07:20 Hypochromia 1+ 04/10/19 07:20 Platelet Estimate Normal 04/10/19 07:20 Polychromasia 1+ 04/10/19 07:20 Poikilocytosis 0 04/10/19 07:20 Anisocytosis 1+ 04/10/19 07:20 Microcytosis 0 04/10/19 07:20 Macrocytosis 0 04/10/19 07:20 Target Cells 1+ 04/10/19 07:20 Schistocytes 1+ 04/09/19 09:30 ESR 102 mm/hr (0-20) H 04/07/19 11:15 PT with INR 13.60 SEC (9.7-13.0) H 04/16/19 07:45 INR 1.15 (0.83-1.09) H 04/16/19 07:45 PTT (Actin FS) 38.0 SECONDS (25.2-36.5) H 04/16/19 07:45 VBG pH 7.38 (7.31-7.41) 04/06/19 22:24 POC VBG pCO2 30.6 mmHg (38-52) L 04/06/19 22:24 POC VBG pO2 59.4 mmHg (28-48) H 04/06/19 22:24 VBG HCO3 17.8 mmol/L (23-29) L 04/06/19 22:24 VBG O2 Sat (Javon) 88.1 % (70-80) H 04/06/19 22:24 VBG Base Excess -6.0 meq/l (-2-2) L 04/06/19 22:24 Sodium 139 mmol/L (136-145) 04/18/19 07:15 Potassium 4.4 mmol/L (3.5-5.1) 04/18/19 07:15 Chloride 102 mmol/L (98-107) 04/18/19 07:15 Carbon Dioxide 32 mmol/L (21-32) 04/18/19 07:15 Anion Gap 5 MMOL/L (8-16) L 04/18/19 07:15 BUN 16.1 mg/dL (7-18) 04/18/19 10:45 Creatinine 2.5 mg/dL (0.55-1.3) H 04/18/19 10:45 Est GFR (CKD-EPI)AfAm 30.53 04/18/19 10:45 Est GFR (CKD-EPI)NonAf 26.34 04/18/19 10:45 POC Glucometer 309 UNITS (80-120) 04/18/19 11:49 Random Glucose 203 mg/dL (74-106) H 04/18/19 07:15 Hemoglobin A1c % 10.8 % (4.2-6.3) H 04/07/19 11:15 Lactic Acid 0.9 mmol/L (0.4-2.0) 04/06/19 23:00 Calcium 7.4 mg/dL (8.5-10.1) L 04/18/19 07:15 Phosphorus 4.4 mg/dL (2.5-4.9) 04/18/19 07:15 Magnesium 2.2 mg/dL (1.8-2.4) 04/17/19 06:40 Iron 21 ug/dL (50-175) L 04/09/19 09:30 TIBC 70 ug/dL (250-450) L 04/09/19 09:30 Iron Saturation 30 % (17.5-39) 04/09/19 09:30 Unsaturated IBC 49 ug/dL (200-275) L 04/09/19 09:30 Ferritin 1970.5 ng/ml (8-388) H 04/09/19 09:30 Total Bilirubin 0.4 mg/dL (0.2-1) 04/12/19 09:30 AST 9 U/L (15-37) L 04/12/19 09:30 ALT 8 U/L (13-61) L 04/12/19 09:30 Alkaline Phosphatase 151 U/L (45-117) H 04/12/19 09:30 Creatine Kinase 26 U/L (26-308) 04/06/19 23:00 Troponin I < 0.02 ng/ml (0.00-0.05) 04/06/19 23:00 C-Reactive Protein 22.3 MG/DL (0.00-0.3) H 04/07/19 11:15 Total Protein 5.2 g/dl (6.4-8.2) L 04/12/19 09:30 Albumin 1.4 g/dl (3.4-5.0) L 04/12/19 09:30 Vitamin B12 1212 pg/ml (193-986) H 04/09/19 09:30 Serum Folate 13 ng/mL (3.1-17.5) 04/09/19 09:30 Random Vancomycin 16.6 ug/ml (18-26) L 04/18/19 07:15 Hep Bs Antigen Negative (Negative) 04/07/19 11:15 Hep C Ab Diagnostic <0.1 s/co ratio (0.0-0.9) 04/07/19 11:15 Blood Type B POSITIVE 04/18/19 07:15 Antibody Screen Negative 04/18/19 07:15 Crossmatch See Detail 04/14/19 10:00 Crossmatch IS Only See Detail 04/14/19 10:00 Microbiology 04/09/19 10:20 Blood - Peripheral Venous Blood Culture - Final NO GROWTH AFTER 5 DAYS INCUBATION 04/09/19 10:42 Blood - Peripheral Venous Blood Culture - Final NO GROWTH AFTER 5 DAYS INCUBATION 04/09/19 12:15 Foot - Rt Transmetatarsal Amp. Site Gram Stain - Final 04/09/19 12:15 Foot - Rt Transmetatarsal Amp. Site Wound Culture - Final Enterococcus Faecalis Mr S Aureus Morganella Morganii 04/07/19 18:00 Bone Gram Stain - Final 04/07/19 18:00 Bone Tissue Culture - Final Morganella Morganii Proteus Vulgaris Enterococcus Faecalis Mr S Aureus Alpha Hemolytic Streptococcus 04/07/19 18:00 Bone Anaerobic Culture - Final 04/07/19 17:30 Foot - Rt Transmetatarsal Amp. Site Gram Stain - Final 04/07/19 17:30 Foot - Rt Transmetatarsal Amp. Site Wound Culture - Final Morganella Morganii Enterococcus Faecalis Mr S Aureus Proteus Vulgaris 04/06/19 17:45 Foot - Right Gram Stain - Final 04/06/19 17:45 Foot - Right Wound Culture - Final Proteus Vulgaris Mr S Aureus Enterococcus Faecalis 04/08/19 16:10 Stool Clostridioides difficile Antigen - Final 04/08/19 16:10 Stool Clostridioides difficile Toxin Assay - Final 04/06/19 17:15 Blood - Peripheral Venous Blood Culture - Final Presumptive Mrsa (Pbp2a Pos) Streptococcus Mitis 04/06/19 17:45 Blood - Peripheral Venous Blood Culture - Final Mr S Aureus Active Medications Albuterol Sulfate (Ventolin 0.083% Nebulizer Soln -) 1 amp NEB Q4H PRN PRN Reason: SHORT OF BREATH/WHEEZING Amino Acids (Prosource No Carb Liquid Pkt) 30 ml PO BID@0800,1730 [facility] Last Admin: 04/18/19 11:43 Dose: 30 ml Calcium Acetate (Phoslo -) 1,334 mg PO TIDCM [facility] Last Admin: 04/18/19 11:30 Dose: 1,334 mg Doxazosin Mesylate (Cardura -) 4 mg PO DAILY [facility] Last Admin: 04/18/19 11:38 Dose: 4 mg Fentanyl (Sublimaze Injection -) 50 mcg IVPUSH [id number] PRN PRN Reason: PAIN-PACU ORDER X 4 DOSES ONLY Fluticasone Propionate (Flonase -) 1 spray NS DAILY [facility] Last Admin: 04/18/19 11:46 Dose: 1 spray Gabapentin (Neurontin -) 300 mg PO TID [facility] Last Admin: 04/18/19 06:44 Dose: 300 mg Sodium Chloride (Normal Saline -) 1,000 mls @ 42 mls/hr IV ASDIR [facility] Last Admin: 04/17/19 22:12 Dose: 42 mls/hr Piperacillin Sod/Tazobactam (Sod 2.25 gm/ Dextrose) 50 mls @ 100 mls/hr IVPB BID [facility]; Protocol Last Admin: 04/18/19 11:35 Dose: 100 mls/hr Insulin Aspart (Novolog Vial Sliding Scale -) 1 vial SQ HS [facility]; Protocol Last Admin: 04/17/19 22:07 Dose: 2 units Insulin Aspart (Novolog Vial Sliding Scale -) 1 vial SQ TIDAC [facility]; Protocol Last Admin: 04/18/19 11:53 Dose: 5 units Insulin Detemir (Levemir Vial) 3 units SQ HS [facility] Last Admin: 04/17/19 22:06 Dose: 3 units Lidocaine (Lidoderm Patch -) 1 patch TP DAILY [facility] Last Admin: 04/18/19 11:43 Dose: 1 patch Melatonin (Melatonin) 10 mg PO HS [facility] Last Admin: 04/17/19 22:06 Dose: 10 mg Methadone HCl (Dolophine -) 5 mg PO TID [facility] Last Admin: 04/18/19 06:44 Dose: 5 mg Miscellaneous (Lidoderm Patch Removal) 1 each MC DAILY@2200 [facility] Last Admin: 04/17/19 22:07 Dose: 1 each Morphine Sulfate (Morphine Sulfate) 4 mg IVPUSH Q4H PRN PRN Reason: PAIN LEVEL 6-10 Last Admin: 04/18/19 11:30 Dose: 4 mg Multivit/Ca Carb/B Cmplx/FA/Prenat (Nephro-Guilherme -) 1 tablet PO DAILY [facility] Last Admin: 04/18/19 11:37 Dose: 1 tablet Nifedipine (Procardia Xl -) 90 mg PO DAILY [facility] Last Admin: 04/18/19 11:38 Dose: 90 mg Ondansetron HCl (Zofran Injection) 4 mg IVPUSH Q6H PRN PRN Reason: NAUSEA AND/OR VOMITING Petrolatum (Vaseline) 1 applic TP DAILY PRN PRN Reason: DRY SKIN Trazodone HCl 400 mg/ (Trazodone HCl 50 mg) 450 mg PO HS [facility] Last Admin: 04/17/19 22:52 Dose: 450 mg Vancomycin HCl (Vancomycin Oral Solution) 125 mg PO Q6HPO [facility] Last Admin: 04/18/19 11:55 Dose: 125 mg ASSESSMENT/PLAN: 61 y/o M with PMHx of DM, HTN, ESRD on dialysis (TThS), left BKA, diabetic neuropathy, hx of MRSA bacteremia presenting for a sepsis from likely osteomyelitis of R foot. #Sepsis - Due to R Foot Osteomyelitis with Bacteremia s/p R guillotine amputation POD#8 and BKA POD#1 - ID consulted, further abx as per their rec's; Will need Vanco to complete 2 week course, Continue Zosyn until 05/20 - bacteremia with intial blood cultures growing MRSA, repeat blood cultures negative - wound and bone cx noted above, pathology report appreciated - physical therapy - Awaiting placement #ESRD - Continue HD T//S - nephrology consulted, recs appreciated #Diarrhea, resolved - positive for c diff antigen - continue oral vancomycin 125mg q6h day 6 #HTN - continue home dose Nifedipine, Doxazosin - cardio consulted, recs appreciated #DM - A1c 10.8 - Continue Levemir 3u HS, ISS and BGMs ACHS - endocrinology consulted, recs appreciated #Normocytic Anemia - s/p 2u PRBCs this admission in setting of chronic renal disease - continue Epogen during HD #Shoulder pain/chronic pain - Continue methadone, morphine, gabapentin, lidocaine patch - pain management consulted, appreciate rec's #Hx of PTSD - trazodone #PPx - DVT: heparin BID #FEN - no standing fluid - Replete lytes PRN - renal diet Dispo: Will need placement Visit type - Emergency Visit Emergency Visit: Yes ED Registration Date: 04/06/19 Care time: The patient presented to the Emergency Department on the above date and was hospitalized for further evaluation of their emergent condition. - New Patient This patient is new to me today: No - Critical Care Critical Care patient: No - Discharge Referral Referred to [facility] Med P.C.: No ATTENDING PHYSICIAN STATEMENT I saw and evaluated the patient. I reviewed the resident's note and discussed the case with the resident. I agree with the resident's findings and plan as documented. SUBJECTIVE: OBJECTIVE: ASSESSMENT AND PLAN:
--- NOTE | 2019-04-18 14:41 | PN ---
Progress Note (short form) - Note Progress Note: C/O pain at surgical site apetite better Has been eating between meals Vital Signs Period Temp Pulse Resp BP Sys/Gutierrez Pulse Ox Last 24 Hr 97.5 F-98.7 F 64-81 16-20 102-155/56-80 97-99 PE: AOx3 Neck: Supple, NO JVD HEENT: EOM Lungs: CTA CVS; S1s2 Abd: Benign Ext: Left BKA, Rt leg surgery site dressing Neuro: No focal deficit CMP Sodium 139 mmol/L (136-145) 04/18/19 07:15 Potassium 4.4 mmol/L (3.5-5.1) 04/18/19 07:15 Chloride 102 mmol/L (98-107) 04/18/19 07:15 Carbon Dioxide 32 mmol/L (21-32) 04/18/19 07:15 Anion Gap 5 MMOL/L (8-16) L 04/18/19 07:15 BUN 16.1 mg/dL (7-18) 04/18/19 10:45 Creatinine 2.5 mg/dL (0.55-1.3) H 04/18/19 10:45 Est GFR (CKD-EPI)AfAm 30.53 04/18/19 10:45 Est GFR (CKD-EPI)NonAf 26.34 04/18/19 10:45 POC Glucometer 309 UNITS (80-120) 04/18/19 11:49 Random Glucose 203 mg/dL (74-106) H 04/18/19 07:15 Hemoglobin A1c % 10.8 % (4.2-6.3) H 04/07/19 11:15 Lactic Acid 0.9 mmol/L (0.4-2.0) 04/06/19 23:00 Calcium 7.4 mg/dL (8.5-10.1) L 04/18/19 07:15 Phosphorus 4.4 mg/dL (2.5-4.9) 04/18/19 07:15 Magnesium 2.2 mg/dL (1.8-2.4) 04/17/19 06:40 Iron 21 ug/dL (50-175) L 04/09/19 09:30 TIBC 70 ug/dL (250-450) L 04/09/19 09:30 Iron Saturation 30 % (17.5-39) 04/09/19 09:30 Unsaturated IBC 49 ug/dL (200-275) L 04/09/19 09:30 Ferritin 1970.5 ng/ml (8-388) H 04/09/19 09:30 Total Bilirubin 0.4 mg/dL (0.2-1) 04/12/19 09:30 AST 9 U/L (15-37) L 04/12/19 09:30 ALT 8 U/L (13-61) L 04/12/19 09:30 Alkaline Phosphatase 151 U/L (45-117) H 04/12/19 09:30 Creatine Kinase 26 U/L (26-308) 04/06/19 23:00 Troponin I < 0.02 ng/ml (0.00-0.05) 04/06/19 23:00 C-Reactive Protein 22.3 MG/DL (0.00-0.3) H 04/07/19 11:15 Total Protein 5.2 g/dl (6.4-8.2) L 04/12/19 09:30 Albumin 1.4 g/dl (3.4-5.0) L 04/12/19 09:30 Vitamin B12 1212 pg/ml (193-986) H 04/09/19 09:30 Serum Folate 13 ng/mL (3.1-17.5) 04/09/19 09:30 Current Medications Generic Name Dose Route Start Last Admin Trade Name Freq PRN Reason Stop Dose Admin Albuterol Sulfate 1 amp 04/17/19 16:07 Ventolin 0.083% Nebulizer Soln - NEB Q4H PRN SHORT OF BREATH/WHEEZING Amino Acids 30 ml 04/17/19 17:30 04/18/19 11:43 Prosource No Carb Liquid Pkt PO 30 ml BID@0800,1730 [facility] Administration Calcium Acetate 1,334 mg 04/17/19 17:30 04/18/19 11:30 Phoslo - PO 1,334 mg TIDCM [facility] Administration Doxazosin Mesylate 4 mg 04/18/19 10:00 04/18/19 11:38 Cardura - PO 4 mg DAILY [facility] Administration Fentanyl 50 mcg 04/17/19 16:07 Sublimaze Injection - IVPUSH [id number] PRN PAIN-PACU ORDER X 4 DOSES ONLY Fluticasone Propionate 1 spray 04/18/19 10:00 04/18/19 11:46 Flonase - NS 1 spray DAILY [facility] Administration Gabapentin 300 mg 04/17/19 22:00 04/18/19 14:25 Neurontin - PO 300 mg TID [facility] Administration Sodium Chloride 1,000 mls @ 42 mls/hr 04/17/19 16:07 04/17/19 22:12 Normal Saline - IV 42 mls/hr ASDIR [facility] Administration Piperacillin Sod/Tazobactam 50 mls @ 100 mls/hr 04/17/19 22:00 04/18/19 11:35 Sod 2.25 gm/ Dextrose IVPB 100 mls/hr BID [facility] Administration Protocol Insulin Aspart 1 vial 04/17/19 22:00 04/17/19 22:07 Novolog Vial Sliding Scale - SQ 2 units HS [facility] Administration Protocol Insulin Aspart 1 vial 04/17/19 16:30 04/18/19 11:53 Novolog Vial Sliding Scale - SQ 5 units TIDAC [facility] Administration Protocol Insulin Detemir 3 units 04/17/19 22:00 04/17/19 22:06 Levemir Vial SQ 3 units HS [facility] Administration Lidocaine 1 patch 04/18/19 10:00 04/18/19 11:43 Lidoderm Patch - TP 1 patch DAILY [facility] Administration Melatonin 10 mg 04/17/19 22:00 04/17/19 22:06 Melatonin PO 10 mg HS [facility] Administration Methadone HCl 5 mg 04/17/19 22:00 04/18/19 14:25 Dolophine - PO 5 mg TID [facility] Administration Miscellaneous 1 each 04/17/19 22:00 04/17/19 22:07 Lidoderm Patch Removal MC 1 each DAILY@2200 [facility] Administration Morphine Sulfate 4 mg 04/17/19 16:07 04/18/19 11:30 Morphine Sulfate IVPUSH 4 mg Q4H PRN Administration PAIN LEVEL 6-10 Multivit/Ca Carb/B Cmplx/FA/Prenat 1 tablet 04/18/19 10:00 04/18/19 11:37 Nephro-Guilherme - PO 1 tablet DAILY [facility] Administration Nifedipine 90 mg 04/18/19 10:00 04/18/19 11:38 Procardia Xl - PO 90 mg DAILY [facility] Administration Ondansetron HCl 4 mg 04/17/19 16:07 Zofran Injection IVPUSH Q6H PRN NAUSEA AND/OR VOMITING Petrolatum 1 applic 04/17/19 16:07 Vaseline TP DAILY PRN DRY SKIN Trazodone HCl 400 mg/ 450 mg 04/17/19 22:00 04/17/19 22:52 Trazodone HCl 50 mg PO 450 mg HS [facility] Administration Vancomycin HCl 125 mg 04/17/19 18:00 04/18/19 11:55 Vancomycin Oral Solution PO 125 mg Q6HPO [facility] Administration AP: Right foot Infection/Metatarsal osteomyelitis: S/P Rt BKA S/P Transmetatarsal amputation: Sepsis ESRD on HD DM Uncontrolled: A1c 10.3/Episode of hypoglycemia asymptomatic HTN PVD S/P Left BKA H/O MRSA bacteremia 09/2017 suspected from HD catheter H.O Right IJ thrombus in 09/2017 (suspected catheter related) BGM QACHS and 3 PM Discussed need to eat 3 regular meals and no snacking between meals unless blood sugar if low. Monitor blood sugar closely as pts with CKD tend to be very sensitive to Insulin and develop hypoglycemia frequently Levemir 3 units daily at HS, Hold if FS <140 or pt is NPO Novolog SS coverage Will F/u
--- NOTE | 2019-04-18 16:39 | PN ---
Progress Note (short form) - Note Progress Note: 1. ESRD on HD 2. Infected foot wound 3. Anemia of CKD 4. Pseudohyponatremia 5. Metabolic acidosis 6. Leukocytosis 7. PVD 8 DM type 2 on insulin Current Medications Albuterol Sulfate (Ventolin 0.083% Nebulizer Soln -) 1 amp NEB Q4H PRN PRN Reason: SHORT OF BREATH/WHEEZING Amino Acids (Prosource No Carb Liquid Pkt) 30 ml PO BID@0800,1730 [facility] Last Admin: 04/18/19 11:43 Dose: 30 ml Calcium Acetate (Phoslo -) 1,334 mg PO TIDCM [facility] Last Admin: 04/18/19 11:30 Dose: 1,334 mg Doxazosin Mesylate (Cardura -) 4 mg PO DAILY [facility] Last Admin: 04/18/19 11:38 Dose: 4 mg Fentanyl (Sublimaze Injection -) 50 mcg IVPUSH [id number] PRN PRN Reason: PAIN-PACU ORDER X 4 DOSES ONLY Fluticasone Propionate (Flonase -) 1 spray NS DAILY [facility] Last Admin: 04/18/19 11:46 Dose: 1 spray Gabapentin (Neurontin -) 300 mg PO TID [facility] Last Admin: 04/18/19 14:25 Dose: 300 mg Sodium Chloride (Normal Saline -) 1,000 mls @ 42 mls/hr IV ASDIR [facility] Last Admin: 04/17/19 22:12 Dose: 42 mls/hr Piperacillin Sod/Tazobactam (Sod 2.25 gm/ Dextrose) 50 mls @ 100 mls/hr IVPB BID [facility]; Protocol Last Admin: 04/18/19 11:35 Dose: 100 mls/hr Insulin Aspart (Novolog Vial Sliding Scale -) 1 vial SQ HS [facility]; Protocol Last Admin: 04/17/19 22:07 Dose: 2 units Insulin Aspart (Novolog Vial Sliding Scale -) 1 vial SQ TIDAC [facility]; Protocol Last Admin: 04/18/19 11:53 Dose: 5 units Insulin Detemir (Levemir Vial) 3 units SQ HS [facility] Last Admin: 04/17/19 22:06 Dose: 3 units Lidocaine (Lidoderm Patch -) 1 patch TP DAILY [facility] Last Admin: 04/18/19 11:43 Dose: 1 patch Melatonin (Melatonin) 10 mg PO HS [facility] Last Admin: 04/17/19 22:06 Dose: 10 mg Methadone HCl (Dolophine -) 5 mg PO TID [facility] Last Admin: 04/18/19 14:25 Dose: 5 mg Miscellaneous (Lidoderm Patch Removal) 1 each MC DAILY@2200 [facility] Last Admin: 04/17/19 22:07 Dose: 1 each Morphine Sulfate (Morphine Sulfate) 4 mg IVPUSH Q4H PRN PRN Reason: PAIN LEVEL 6-10 Last Admin: 04/18/19 11:30 Dose: 4 mg Multivit/Ca Carb/B Cmplx/FA/Prenat (Nephro-Guilherme -) 1 tablet PO DAILY [facility] Last Admin: 04/18/19 11:37 Dose: 1 tablet Nifedipine (Procardia Xl -) 90 mg PO DAILY [facility] Last Admin: 04/18/19 11:38 Dose: 90 mg Ondansetron HCl (Zofran Injection) 4 mg IVPUSH Q6H PRN PRN Reason: NAUSEA AND/OR VOMITING Petrolatum (Vaseline) 1 applic TP DAILY PRN PRN Reason: DRY SKIN Trazodone HCl 400 mg/ (Trazodone HCl 50 mg) 450 mg PO [facility] Last Admin: 04/17/19 22:52 Dose: 450 mg Vancomycin HCl (Vancomycin Oral Solution) 125 mg PO Q6HPO [facility] Last Admin: 04/18/19 11:55 Dose: 125 mg Last Vital Signs Temp Pulse Resp BP Pulse Ox 98.3 F 70 18 133/72 97 04/18/19 13:31 04/18/19 13:31 04/18/19 13:31 04/18/19 13:31 04/18/19 09:00 Lungs clear Heart reg ABd soft nontender L BKA R immobilizer CBC, BMP 04/18/19 07:15 04/18/19 10:45 s/p hd tx uneventful
[2019-04-18] MEDS: SODIUM CHLORIDE 1,000 ML IV SCH (17:02)
--- NOTE | 2019-04-18 20:38 | PN ---
Progress Note (short form) - Note Progress Note: 63M s/p R BKA under GA. No new c/o. Vital Signs Period Temp Pulse Resp BP Sys/Gutierrez Pulse Ox Last 24 Hr 97.5 F-98.3 F 70-81 16-20 115-155/56-80 97-97 CBC, BMP 04/18/19 07:15 04/18/19 10:45 - No anesthetic complications
[2019-04-18] MEDS: MELATONIN 5 MG TABLETS PO SCH (22:00)
[2019-04-18] MEDS: LIDOCAINE PATCH REMOVAL MC SCH (22:01)
[2019-04-18] MEDS: INSULIN (LEVEMIR) 100 UNITS/ML UNITS SQ SCH (22:01)
[2019-04-18] MEDS: TRAZODONE HCL PO SCH (22:04)
[2019-04-19] MEDS: VANCOMYCIN 250 MG/5 ML ORAL SOLUTION PO SCH ×5 (00:15→23:29)
[2019-04-19] MEDS: GABAPENTIN 300 MG CAPSULE (FP) PO SCH ×3 (06:48→21:48)
[2019-04-19] MEDS: INSULIN SLIDING SCALE (NOVOLOG) 1 VIAL SQ SCH ×4 (06:48→21:48)
[2019-04-19] MEDS: METHADONE HCL 5 MG TABLET PO SCH ×3 (06:48→21:48)
[2019-04-19] MEDS ORDERED: INSULIN (NOVOLOG) ASPART 100 UNITS/ML 10ML VIAL ONE ×2 (07:35→16:50)
[2019-04-19] MEDS: CALCIUM ACETATE 667 MG CAPSULE (FP) PO SCH ×3 (08:02→17:26)
[2019-04-19] MEDS ORDERED: PIPERACILLIN/TAZOBACTAM 2.25 GM VIAL IVPB ONE (09:19)
[2019-04-19] MEDS ORDERED: DEXTROSE 5%-WATER - 50 ML IVPB ONE (09:19)
[2019-04-19] MEDS ORDERED: PT OWN MED DRAWER 7, Y5N ONE (09:19)
[2019-04-19] MEDS: PIPERACILLIN/TAZOB 2.25 GM 2.25 GM in DEXTROSE 5%-WATER - 50 ML IVPB SCH (09:52)
[2019-04-19] MEDS: AMINO ACIDS/PROTEIN HYDROLYS 30 ML LIQUID.PKT PO SCH ×2 (09:52→17:25)
[2019-04-19] MEDS: LIDOCAINE 5% TOPICAL PATCH TP SCH (09:53)
[2019-04-19] MEDS: DOXAZOSIN MESYLATE 4 MG TABLET PO SCH (09:53)
[2019-04-19] MEDS: FLUTICASONE PROP 0.05% 16 GM NASAL SPRAY NS SCH (10:04)
[2019-04-19] MEDS: morphine SULFATE 4 MG/ML VIAL IVPUSH PRN (10:05)
[2019-04-19] MEDS: VITAMIN B COMP W-C 1 EA TABLET PO SCH (10:40)
[2019-04-19] MEDS: NIFEdipine E.R. 90 MG TABLET (FP) PO SCH (12:21)
--- NOTE | 2019-04-19 14:05 | PN ---
Progress Note (short form) - Note Progress Note: C/O pain at surgical site apetite still poor as per pt Vital Signs Period Temp Pulse Resp BP Sys/Gutierrez Pulse Ox Last 24 Hr 97.5 F-98.7 F 64-81 16-20 102-155/56-80 97-99 PE: AOx3 Neck: Supple, NO JVD HEENT: EOM Lungs: CTA CVS; S1s2 Abd: Benign Ext: Left BKA, Rt leg surgery site dressing Neuro: No focal deficit CMP Sodium 139 mmol/L (136-145) 04/18/19 07:15 Potassium 4.4 mmol/L (3.5-5.1) 04/18/19 07:15 Chloride 102 mmol/L (98-107) 04/18/19 07:15 Carbon Dioxide 32 mmol/L (21-32) 04/18/19 07:15 Anion Gap 5 MMOL/L (8-16) L 04/18/19 07:15 BUN 16.1 mg/dL (7-18) 04/18/19 10:45 Creatinine 2.5 mg/dL (0.55-1.3) H 04/18/19 10:45 Est GFR (CKD-EPI)AfAm 30.53 04/18/19 10:45 Est GFR (CKD-EPI)NonAf 26.34 04/18/19 10:45 POC Glucometer 176 UNITS (80-120) 04/19/19 11:30 Random Glucose 203 mg/dL (74-106) H 04/18/19 07:15 Hemoglobin A1c % 10.8 % (4.2-6.3) H 04/07/19 11:15 Lactic Acid 0.9 mmol/L (0.4-2.0) 04/06/19 23:00 Calcium 7.4 mg/dL (8.5-10.1) L 04/18/19 07:15 Phosphorus 4.4 mg/dL (2.5-4.9) 04/18/19 07:15 Magnesium 2.2 mg/dL (1.8-2.4) 04/17/19 06:40 Iron 21 ug/dL (50-175) L 04/09/19 09:30 TIBC 70 ug/dL (250-450) L 04/09/19 09:30 Iron Saturation 30 % (17.5-39) 04/09/19 09:30 Unsaturated IBC 49 ug/dL (200-275) L 04/09/19 09:30 Ferritin 1970.5 ng/ml (8-388) H 04/09/19 09:30 Total Bilirubin 0.4 mg/dL (0.2-1) 04/12/19 09:30 AST 9 U/L (15-37) L 04/12/19 09:30 ALT 8 U/L (13-61) L 04/12/19 09:30 Alkaline Phosphatase 151 U/L (45-117) H 04/12/19 09:30 Creatine Kinase 26 U/L (26-308) 04/06/19 23:00 Troponin I < 0.02 ng/ml (0.00-0.05) 04/06/19 23:00 C-Reactive Protein 22.3 MG/DL (0.00-0.3) H 04/07/19 11:15 Total Protein 5.2 g/dl (6.4-8.2) L 04/12/19 09:30 Albumin 1.4 g/dl (3.4-5.0) L 04/12/19 09:30 Vitamin B12 1212 pg/ml (193-986) H 04/09/19 09:30 Serum Folate 13 ng/mL (3.1-17.5) 04/09/19 09:30 Current Medications Generic Name Dose Route Start Last Admin Trade Name Freq PRN Reason Stop Dose Admin Albuterol Sulfate 1 amp 04/17/19 16:07 Ventolin 0.083% Nebulizer Soln - NEB Q4H PRN SHORT OF BREATH/WHEEZING Amino Acids 30 ml 04/17/19 17:30 04/19/19 09:52 Prosource No Carb Liquid Pkt PO 30 ml BID@0800,1730 IGGY Administration Calcium Acetate 1,334 mg 04/17/19 17:30 04/19/19 12:15 Phoslo - PO 1,334 mg TIDCM IGGY Administration Doxazosin Mesylate 4 mg 04/18/19 10:00 04/19/19 09:53 Cardura - PO 4 mg DAILY IGGY Administration Fentanyl 50 mcg 04/17/19 16:07 Sublimaze Injection - IVPUSH [id number] PRN PAIN-PACU ORDER X 4 DOSES ONLY Fluticasone Propionate 1 spray 04/18/19 10:00 04/19/19 10:04 Flonase - NS 1 spray DAILY IGGY Administration Gabapentin 300 mg 04/17/19 22:00 04/19/19 06:48 Neurontin - PO 300 mg TID IGGY Administration Sodium Chloride 1,000 mls @ 42 mls/hr 04/17/19 16:07 04/18/19 17:02 Normal Saline - IV Not Given ASDIR IGGY Piperacillin Sod/Tazobactam 50 mls @ 100 mls/hr 04/17/19 22:00 04/19/19 09:52 Sod 2.25 gm/ Dextrose IVPB 100 mls/hr BID IGGY Administration Protocol Insulin Aspart 1 vial 04/17/19 22:00 04/18/19 22:00 Novolog Vial Sliding Scale - SQ 2 units HS IGGY Administration Protocol Insulin Aspart 1 vial 04/17/19 16:30 04/19/19 11:16 Novolog Vial Sliding Scale - SQ 2 units TIDAC IGGY Administration Protocol Insulin Detemir 3 units 04/17/19 22:00 04/18/19 22:01 Levemir Vial SQ 3 units HS IGGY Administration Lidocaine 1 patch 04/18/19 10:00 04/19/19 09:53 Lidoderm Patch - TP 1 patch DAILY IGGY Administration Melatonin 10 mg 04/17/19 22:00 04/18/19 22:00 Melatonin PO 10 mg HS IGGY Administration Methadone HCl 5 mg 04/17/19 22:00 04/19/19 06:48 Dolophine - PO 5 mg TID IGGY Administration Miscellaneous 1 each 04/17/19 22:00 04/18/19 22:01 Lidoderm Patch Removal MC 1 each DAILY@2200 IGGY Administration Morphine Sulfate 4 mg 04/17/19 16:07 04/19/19 10:05 Morphine Sulfate IVPUSH 4 mg Q4H PRN Administration PAIN LEVEL 6-10 Multivit/Ca Carb/B Cmplx/FA/Prenat 1 tablet 04/18/19 10:00 04/19/19 10:40 Nephro-Guilherme - PO 1 tablet DAILY IGGY Administration Nifedipine 90 mg 04/18/19 10:00 04/19/19 12:21 Procardia Xl - PO Not Given DAILY IGGY Ondansetron HCl 4 mg 04/17/19 16:07 Zofran Injection IVPUSH Q6H PRN NAUSEA AND/OR VOMITING Petrolatum 1 applic 04/17/19 16:07 Vaseline TP DAILY PRN DRY SKIN Trazodone HCl 400 mg/ 450 mg 04/17/19 22:00 04/18/19 22:04 Trazodone HCl 50 mg PO 450 mg HS IGGY Administration Vancomycin HCl 125 mg 04/17/19 18:00 04/19/19 12:18 Vancomycin Oral Solution PO 125 mg Q6HPO IGGY Administration AP: Right foot Infection/Metatarsal osteomyelitis: S/P Rt BKA S/P Transmetatarsal amputation: Sepsis ESRD on HD DM Uncontrolled: A1c 10.3/Episode of hypoglycemia asymptomatic HTN PVD S/P Left BKA H/O MRSA bacteremia 09/2017 suspected from HD catheter H.O Right IJ thrombus in 09/2017 (suspected catheter related) BGM QACHS Discussed need to eat 3 regular meals and no snacking between meals unless blood sugar if low. Monitor blood sugar closely as pts with CKD tend to be very sensitive to Insulin and develop hypoglycemia frequently Levemir 3 units daily at HS, Hold if FS <140 or pt is NPO Novolog SS coverage Will F/u
--- NOTE | 2019-04-19 14:21 | PN ---
Progress Note, Physician History of Present Illness: POD#9 post right BKA, POD#2 revision and wound closure. Pain adequately controlled. - Current Medication List Current Medications: Active Medications Albuterol Sulfate (Ventolin 0.083% Nebulizer Soln -) 1 amp NEB Q4H PRN PRN Reason: SHORT OF BREATH/WHEEZING Amino Acids (Prosource No Carb Liquid Pkt) 30 ml PO BID@0800,1730 [facility] Last Admin: 04/19/19 09:52 Dose: 30 ml Calcium Acetate (Phoslo -) 1,334 mg PO TIDCM [facility] Last Admin: 04/19/19 12:15 Dose: 1,334 mg Doxazosin Mesylate (Cardura -) 4 mg PO DAILY [facility] Last Admin: 04/19/19 09:53 Dose: 4 mg Fentanyl (Sublimaze Injection -) 50 mcg IVPUSH [id number] PRN PRN Reason: PAIN-PACU ORDER X 4 DOSES ONLY Fluticasone Propionate (Flonase -) 1 spray NS DAILY [facility] Last Admin: 04/19/19 10:04 Dose: 1 spray Gabapentin (Neurontin -) 300 mg PO TID [facility] Last Admin: 04/19/19 06:48 Dose: 300 mg Sodium Chloride (Normal Saline -) 1,000 mls @ 42 mls/hr IV ASDIR [facility] Last Admin: 04/18/19 17:02 Dose: Not Given Piperacillin Sod/Tazobactam (Sod 2.25 gm/ Dextrose) 50 mls @ 100 mls/hr IVPB BID [facility]; Protocol Last Admin: 04/19/19 09:52 Dose: 100 mls/hr Insulin Aspart (Novolog Vial Sliding Scale -) 1 vial SQ HS [facility]; Protocol Last Admin: 04/18/19 22:00 Dose: 2 units Insulin Aspart (Novolog Vial Sliding Scale -) 1 vial SQ TIDAC [facility]; Protocol Last Admin: 04/19/19 11:16 Dose: 2 units Insulin Detemir (Levemir Vial) 3 units SQ HS [facility] Last Admin: 04/18/19 22:01 Dose: 3 units Lidocaine (Lidoderm Patch -) 1 patch TP DAILY [facility] Last Admin: 04/19/19 09:53 Dose: 1 patch Melatonin (Melatonin) 10 mg PO HS [facility] Last Admin: 04/18/19 22:00 Dose: 10 mg Methadone HCl (Dolophine -) 5 mg PO TID [facility] Last Admin: 04/19/19 06:48 Dose: 5 mg Miscellaneous (Lidoderm Patch Removal) 1 each MC DAILY@2200 [facility] Last Admin: 04/18/19 22:01 Dose: 1 each Morphine Sulfate (Morphine Sulfate) 4 mg IVPUSH Q4H PRN PRN Reason: PAIN LEVEL 6-10 Last Admin: 04/19/19 10:05 Dose: 4 mg Multivit/Ca Carb/B Cmplx/FA/Prenat (Nephro-Guilherme -) 1 tablet PO DAILY [facility] Last Admin: 04/19/19 10:40 Dose: 1 tablet Nifedipine (Procardia Xl -) 90 mg PO DAILY [facility] Last Admin: 04/19/19 12:21 Dose: Not Given Ondansetron HCl (Zofran Injection) 4 mg IVPUSH Q6H PRN PRN Reason: NAUSEA AND/OR VOMITING Petrolatum (Vaseline) 1 applic TP DAILY PRN PRN Reason: DRY SKIN Trazodone HCl 400 mg/ (Trazodone HCl 50 mg) 450 mg PO HS [facility] Last Admin: 04/18/19 22:04 Dose: 450 mg Vancomycin HCl (Vancomycin Oral Solution) 125 mg PO Q6HPO [facility] Last Admin: 04/19/19 12:18 Dose: 125 mg - Objective Vital Signs: Vital Signs Temperature 97.6 F 04/19/19 14:01 Pulse Rate 68 04/19/19 14:01 Respiratory Rate 18 04/19/19 14:01 Blood Pressure 117/56 L 04/19/19 14:01 O2 Sat by Pulse Oximetry (%) 97 04/19/19 09:00 Constitutional: Yes: No Distress, Calm, Thin Neck: Yes: Supple Cardiovascular: Yes: Regular Rate and Rhythm Respiratory: Yes: Regular, Diminished Gastrointestinal: Yes: Normal Bowel Sounds, Soft Extremities: Yes: Amputation (Bilateral BKA) Edema: No Labs: CBC, BMP 04/18/19 07:15 04/18/19 10:45 INR, PTT INR 1.15 (0.83-1.09) H 04/16/19 07:45 Problem List - Problems (1) Cellulitis of right foot Code(s): L03.115 - CELLULITIS OF RIGHT LOWER LIMB (2) ESRD (end stage renal disease) on dialysis Code(s): N18.6 - END STAGE RENAL DISEASE; Z99.2 - DEPENDENCE ON RENAL DIALYSIS (3) Uncontrolled diabetes mellitus Code(s): E11.65 - TYPE 2 DIABETES MELLITUS WITH HYPERGLYCEMIA Qualifiers: Diabetes mellitus type: type 2 Glycemic state: with hyperglycemia Qualified Code(s): E11.65 - Type 2 diabetes mellitus with hyperglycemia (4) Anemia Code(s): D64.9 - ANEMIA, UNSPECIFIED Qualifiers: Anemia type: due to chronic kidney disease Chronic kidney disease stage: on chronic dialysis Qualified Code(s): N18.6 - End stage renal disease; D63.1 - Anemia in chronic kidney disease; Z99.2 - Dependence on renal dialysis (5) Foot infection Code(s): L08.9 - LOCAL INFECTION OF THE SKIN AND SUBCUTANEOUS TISSUE, UNSP (6) Bacteremia due to Gram-positive bacteria Code(s): R78.81 - BACTEREMIA (7) ESRD (end stage renal disease) Code(s): N18.6 - END STAGE RENAL DISEASE (8) Peripheral vascular disease due to secondary diabetes Code(s): E13.51 - OTH DIABETES W DIABETIC PERIPHERAL ANGIOPATHY W/O GANGRENE (9) Diabetic neuropathy Code(s): E11.40 - TYPE 2 DIABETES MELLITUS WITH DIABETIC NEUROPATHY, UNSP Qualifiers: Diabetes mellitus type: type 2 Diabetes mellitus complication detail: diabetic polyneuropathy Qualified Code(s): E11.42 - Type 2 diabetes mellitus with diabetic polyneuropathy (10) Osteomyelitis Code(s): M86.9 - OSTEOMYELITIS, UNSPECIFIED Qualifiers: Osteomyelitis type: other chronic Osteomyelitis location: foot (11) Type 2 diabetes mellitus with foot ulcer Code(s): E11.621 - TYPE 2 DIABETES MELLITUS WITH FOOT ULCER; L97.509 - NON- PRESSURE CHRONIC ULCER OTH PRT UNSP FOOT W UNSP SEVERITY Qualifiers: Diabetes mellitus detention insulin use: with extermination inspector use Qualified Code( s): E11.621 - Type 2 diabetes mellitus with foot ulcer; L97.509 - Non-pressure chronic ulcer of other part of unspecified foot with unspecified severity; Z79.4 - care home (current) use of insulin (12) Below-knee amputation Code(s): S88.119A - COMPLETE TRAUM AMP AT LEV KHADARW KN & ANKL, UNSP LOW LEG, INIT Assessment/Plan 10/15/2018 Echo: Mod cLVH with normal LV and RV size and fxn, tr-mild MR 09/30/2017 CHAKA: Normal biventricular size and fxn, mild AR, CT, MR, no SIS thrombus or vegetations 1. MRSA bacteremia from osteomyelitis of R foot s/p RLE BKA POD#2 BKA revision and wound closure 2. ESRD on HD TThS, suspected diabetic nephropathy 3. Moderate pericardial effusion referable to uremic pericarditis since resolved 4. Insulin-dependent Type 2 DM c/b neuropathy uncontrolled, A1C 10.8 5. HTN/HCVD 6. PAD 7. Anemia of chronic kidney disease 8. H/o Right IJ/SCV thrombus probably catheter related 9. PAD s/p left BKA 10. History of substance abuse currently on Methadone PLAN: 1. Vanco/Zosyn course per ID, f/u cultures confirms bacteremia clearance, wound care, HBO2. 2. Continue Cardura 4 qd, Procardia XL 90 qd 3. Would defer CHAKA unless persistently bacteremic and we are looking for additional source besides established right foot osteomyeleitis, 04/09 bld cx document clearance 4. Monitor Hgb and transfuse as needed to maintain Hgb>7.0, continue high dose ADRIAN 5. TThS HD per renal
--- NOTE | 2019-04-19 15:33 | PN ---
Physical Exam: SUBJECTIVE: Patient seen and examined, no complaints currently. OBJECTIVE: Vital Signs Period Temp Pulse Resp BP Sys/Gutierrez Pulse Ox Last 24 Hr 97.6 F-98 F 67-78 18-18 99-145/53-72 97-97 Intake & Output 04/16/19 04/17/19 04/18/19 04/19/19 23:59 23:59 23:59 23:59 Intake Total 900 720 970 720 Output Total 2400 150 100 Balance -1500 570 870 720 Weight 174 lb 7 oz 178 lb 179 lb 179 lb 4 oz GENERAL: lying in bed, no acute distress Chest: decreased effort, no rales or wheezing appreciated Abdomen: soft, NT Extremities: bilateral BKA, right BKA amputation dressing clean, further exam deferred Laboratory Results - last 24 hr 04/18/19 04/18/19 04/19/19 16:24 21:56 06:48 POC Glucometer 294 228 90 04/19/19 11:30 POC Glucometer 176 Active Medications Generic Name Dose Route Start Last Admin Trade Name Freq PRN Reason Stop Dose Admin Albuterol Sulfate 1 amp 04/17/19 16:07 Ventolin 0.083% Nebulizer Soln - NEB Q4H PRN SHORT OF BREATH/WHEEZING Amino Acids 30 ml 04/17/19 17:30 04/19/19 09:52 Prosource No Carb Liquid Pkt PO 30 ml BID@0800,1730 IGGY Administration Calcium Acetate 1,334 mg 04/17/19 17:30 04/19/19 12:15 Phoslo - PO 1,334 mg TIDCM IGGY Administration Doxazosin Mesylate 4 mg 04/18/19 10:00 04/19/19 09:53 Cardura - PO 4 mg DAILY IGGY Administration Fentanyl 50 mcg 04/17/19 16:07 Sublimaze Injection - IVPUSH [id number] PRN PAIN-PACU ORDER X 4 DOSES ONLY Fluticasone Propionate 1 spray 04/18/19 10:00 04/19/19 10:04 Flonase - NS 1 spray DAILY IGGY Administration Gabapentin 300 mg 04/17/19 22:00 04/19/19 14:32 Neurontin - PO 300 mg TID IGGY Administration Sodium Chloride 1,000 mls @ 42 mls/hr 04/17/19 16:07 04/18/19 17:02 Normal Saline - IV Not Given ASDIR IGGY Piperacillin Sod/Tazobactam 50 mls @ 100 mls/hr 04/17/19 22:00 04/19/19 09:52 Sod 2.25 gm/ Dextrose IVPB 100 mls/hr BID IGGY Administration Protocol Insulin Aspart 1 vial 04/17/19 22:00 04/18/19 22:00 Novolog Vial Sliding Scale - SQ 2 units HS IGGY Administration Protocol Insulin Aspart 1 vial 04/17/19 16:30 04/19/19 11:16 Novolog Vial Sliding Scale - SQ 2 units TIDAC IGGY Administration Protocol Insulin Detemir 3 units 04/17/19 22:00 04/18/19 22:01 Levemir Vial SQ 3 units HS IGGY Administration Lidocaine 1 patch 04/18/19 10:00 04/19/19 09:53 Lidoderm Patch - TP 1 patch DAILY IGGY Administration Melatonin 10 mg 04/17/19 22:00 04/18/19 22:00 Melatonin PO 10 mg HS IGGY Administration Methadone HCl 5 mg 04/17/19 22:00 04/19/19 14:32 Dolophine - PO 5 mg TID IGGY Administration Miscellaneous 1 each 04/17/19 22:00 04/18/19 22:01 Lidoderm Patch Removal MC 1 each DAILY@2200 IGGY Administration Morphine Sulfate 4 mg 04/17/19 16:07 04/19/19 10:05 Morphine Sulfate IVPUSH 4 mg Q4H PRN Administration PAIN LEVEL 6-10 Multivit/Ca Carb/B Cmplx/FA/Prenat 1 tablet 04/18/19 10:00 04/19/19 10:40 Nephro-Guilherme - PO 1 tablet DAILY IGGY Administration Nifedipine 90 mg 04/18/19 10:00 04/19/19 12:21 Procardia Xl - PO Not Given DAILY IGGY Ondansetron HCl 4 mg 04/17/19 16:07 Zofran Injection IVPUSH Q6H PRN NAUSEA AND/OR VOMITING Petrolatum 1 applic 04/17/19 16:07 Vaseline TP DAILY PRN DRY SKIN Trazodone HCl 400 mg/ 450 mg 04/17/19 22:00 04/18/19 22:04 Trazodone HCl 50 mg PO 450 mg HS IGGY Administration Vancomycin HCl 125 mg 04/17/19 18:00 04/19/19 12:18 Vancomycin Oral Solution PO 125 mg Q6HPO IGGY Administration Microbiology 04/09/19 10:20 Blood - Peripheral Venous Blood Culture - Final NO GROWTH AFTER 5 DAYS INCUBATION 04/09/19 10:42 Blood - Peripheral Venous Blood Culture - Final NO GROWTH AFTER 5 DAYS INCUBATION 04/09/19 12:15 Foot - Rt Transmetatarsal Amp. Site Gram Stain - Final 04/09/19 12:15 Foot - Rt Transmetatarsal Amp. Site Wound Culture - Final Enterococcus Faecalis Mr S Aureus Morganella Morganii 04/07/19 18:00 Bone Gram Stain - Final 04/07/19 18:00 Bone Tissue Culture - Final Morganella Morganii Proteus Vulgaris Enterococcus Faecalis Mr S Aureus Alpha Hemolytic Streptococcus 04/07/19 18:00 Bone Anaerobic Culture - Final 04/07/19 17:30 Foot - Rt Transmetatarsal Amp. Site Gram Stain - Final 04/07/19 17:30 Foot - Rt Transmetatarsal Amp. Site Wound Culture - Final Morganella Morganii Enterococcus Faecalis Mr S Aureus Proteus Vulgaris 04/06/19 17:45 Foot - Right Gram Stain - Final 04/06/19 17:45 Foot - Right Wound Culture - Final Proteus Vulgaris Mr S Aureus Enterococcus Faecalis 04/08/19 16:10 Stool Clostridioides difficile Antigen - Final 04/08/19 16:10 Stool Clostridioides difficile Toxin Assay - Final 04/06/19 17:15 Blood - Peripheral Venous Blood Culture - Final Presumptive Mrsa (Pbp2a Pos) Streptococcus Mitis 04/06/19 17:45 Blood - Peripheral Venous Blood Culture - Final Mr S Aureus ASSESSMENT/PLAN: 63 year old male with PMhx of ESRD on HD (TTS), IDDM, HTN, PVD s/p L BKA, Diabetic neuropathy, prior h/o MRSA bacteremia 09/2017 suspected from HD catheter , Right IJ thrombus in 09/2017 (suspected catheter related) admitted with progressive non-healing right foot swelling, redness, foul smelling discharge, chills. 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 Afebrile, bacteremia cleared. stop zosyn today per ID recs. Vancomycin for total 2 weeks (dose to be given after HD) TTE neg for vegetation. Repeat blood cx neg. Endocrine input noted. levemir 3 units hs, 3 meals, avoid snacking, ISS. BP soft, decreased doxazocin to 2 mg , change to hs, decrease Nifedipine to 60 mg daily. Dc IVF, HD per renal. s/p 2 units PRBC. Epopoeitin per renal. No further diarrhea, PO vancomycin per ID [id number] heparin dispo to SNF pending bed availability. Visit type - Emergency Visit Emergency Visit: Yes ED Registration Date: 04/06/19 Care time: The patient presented to the Emergency Department on the above date and was hospitalized for further evaluation of their emergent condition. - New Patient This patient is new to me today: Yes Date on this admission: 04/19/19 - Critical Care Critical Care patient: No - Discharge Referral Referred to [facility] No
[2019-04-19] MEDS ORDERED: morphine SULFATE 4 MG/ML VIAL IVPUSH PRN (15:39)
[2019-04-19] MEDS: SODIUM CHLORIDE 1,000 ML IV SCH (15:51)
[2019-04-19] MEDS ORDERED: SODIUM CHLORIDE 250 ML IV PRN (18:32)
--- NOTE | 2019-04-19 18:39 | PN ---
Progress Note (short form) - Note Progress Note: 1. ESRD on HD 2. Infected foot wound 3. Anemia of CKD 4. Pseudohyponatremia 5. Metabolic acidosis 6. Leukocytosis 7. PVD 8 DM type 2 on insulin Current Medications Albuterol Sulfate (Ventolin 0.083% Nebulizer Soln -) 1 amp NEB Q4H PRN PRN Reason: SHORT OF BREATH/WHEEZING Amino Acids (Prosource No Carb Liquid Pkt) 30 ml PO BID@0800,1730 [facility] Last Admin: 04/19/19 17:25 Dose: 30 ml Calcium Acetate (Phoslo -) 1,334 mg PO TIDCM [facility] Last Admin: 04/19/19 17:26 Dose: 1,334 mg Doxazosin Mesylate (Cardura -) 2 mg PO HS [facility] Fluticasone Propionate (Flonase -) 1 spray NS DAILY [facility] Last Admin: 04/19/19 10:04 Dose: 1 spray Gabapentin (Neurontin -) 300 mg PO TID [facility] Last Admin: 04/19/19 14:32 Dose: 300 mg Sodium Chloride (Normal Saline -) 1,000 mls @ 42 mls/hr IV ASDIR [facility] Last Admin: 04/19/19 15:51 Dose: Not Given Sodium Chloride (Normal Saline -) 250 mls @ 3,000 mls/hr IV PRN PRN PRN Reason: Hypotension during Dialysis Stop: 04/20/19 18:32 Insulin Aspart (Novolog Vial Sliding Scale -) 1 vial SQ [facility]; Protocol Last Admin: 04/18/19 22:00 Dose: 2 units Insulin Aspart (Novolog Vial Sliding Scale -) 1 vial SQ TIDAC [facility]; Protocol Last Admin: 04/19/19 17:25 Dose: 3 units Insulin Detemir (Levemir Vial) 3 units SQ [facility] Last Admin: 04/18/19 22:01 Dose: 3 units Lidocaine (Lidoderm Patch -) 1 patch TP DAILY [facility] Last Admin: 04/19/19 09:53 Dose: 1 patch Melatonin (Melatonin) 10 mg PO [facility] Last Admin: 04/18/19 22:00 Dose: 10 mg Methadone HCl (Dolophine -) 5 mg PO TID [facility] Last Admin: 04/19/19 14:32 Dose: 5 mg Miscellaneous (Lidoderm Patch Removal) 1 each MC DAILY@2200 [facility] Last Admin: 04/18/19 22:01 Dose: 1 each Morphine Sulfate (Morphine Sulfate) 4 mg IVPUSH Q6H PRN PRN Reason: PAIN LEVEL 6-10 Multivit/Ca Carb/B Cmplx/FA/Prenat (Nephro-Guilherme -) 1 tablet PO DAILY [facility] Last Admin: 04/19/19 10:40 Dose: 1 tablet Nifedipine (Procardia Xl -) 60 mg PO DAILY [facility] Ondansetron HCl (Zofran Injection) 4 mg IVPUSH Q6H PRN PRN Reason: NAUSEA AND/OR VOMITING Petrolatum (Vaseline) 1 applic TP DAILY PRN PRN Reason: DRY SKIN Trazodone HCl 400 mg/ (Trazodone HCl 50 mg) 450 mg PO HS [facility] Last Admin: 04/18/19 22:04 Dose: 450 mg Vancomycin HCl (Vancomycin Oral Solution) 125 mg PO Q6HPO [facility] Last Admin: 04/19/19 17:25 Dose: 125 mg Last Vital Signs Temp Pulse Resp BP Pulse Ox 97.6 F 68 18 117/56 L 97 04/19/19 14:01 04/19/19 14:01 04/19/19 14:01 04/19/19 14:01 04/19/19 09:00 Lungs clear Heart reg ABd soft nontender L BKA R immobilizer CBC, BMP 04/18/19 07:15 04/18/19 10:45 04/18/19 07:15 04/18/19 10:45 FOR HD tomorrow orders written
--- NOTE | 2019-04-19 21:14 | PN ---
Progress Note, Physician History of Present Illness: Pt is alert, afebrile. Pain in LE controlled. No diarrhea/abd pain. - Current Medication List Current Medications: Active Medications Albuterol Sulfate (Ventolin 0.083% Nebulizer Soln -) 1 amp NEB Q4H PRN PRN Reason: SHORT OF BREATH/WHEEZING Amino Acids (Prosource No Carb Liquid Pkt) 30 ml PO BID@0800,1730 [facility] Last Admin: 04/19/19 17:25 Dose: 30 ml Calcium Acetate (Phoslo -) 1,334 mg PO TIDCM [facility] Last Admin: 04/19/19 17:26 Dose: 1,334 mg Doxazosin Mesylate (Cardura -) 2 mg PO HS [facility] Fluticasone Propionate (Flonase -) 1 spray NS DAILY [facility] Last Admin: 04/19/19 10:04 Dose: 1 spray Gabapentin (Neurontin -) 300 mg PO TID [facility] Last Admin: 04/19/19 14:32 Dose: 300 mg Sodium Chloride (Normal Saline -) 1,000 mls @ 42 mls/hr IV ASDIR [facility] Last Admin: 04/19/19 15:51 Dose: Not Given Sodium Chloride (Normal Saline -) 250 mls @ 3,000 mls/hr IV PRN PRN PRN Reason: Hypotension during Dialysis Stop: 04/20/19 18:32 Insulin Aspart (Novolog Vial Sliding Scale -) 1 vial SQ [facility]; Protocol Last Admin: 04/18/19 22:00 Dose: 2 units Insulin Aspart (Novolog Vial Sliding Scale -) 1 vial SQ TIDAC [facility]; Protocol Last Admin: 04/19/19 17:25 Dose: 3 units Insulin Detemir (Levemir Vial) 3 units SQ [facility] Last Admin: 04/18/19 22:01 Dose: 3 units Lidocaine (Lidoderm Patch -) 1 patch TP DAILY [facility] Last Admin: 04/19/19 09:53 Dose: 1 patch Melatonin (Melatonin) 10 mg PO [facility] Last Admin: 04/18/19 22:00 Dose: 10 mg Methadone HCl (Dolophine -) 5 mg PO TID [facility] Last Admin: 04/19/19 14:32 Dose: 5 mg Miscellaneous (Lidoderm Patch Removal) 1 each MC DAILY@2200 [facility] Last Admin: 04/18/19 22:01 Dose: 1 each Morphine Sulfate (Morphine Sulfate) 4 mg IVPUSH Q6H PRN PRN Reason: PAIN LEVEL 6-10 Multivit/Ca Carb/B Cmplx/FA/Prenat (Nephro-Guilherme -) 1 tablet PO DAILY [facility] Last Admin: 04/19/19 10:40 Dose: 1 tablet Nifedipine (Procardia Xl -) 60 mg PO DAILY [facility] Ondansetron HCl (Zofran Injection) 4 mg IVPUSH Q6H PRN PRN Reason: NAUSEA AND/OR VOMITING Petrolatum (Vaseline) 1 applic TP DAILY PRN PRN Reason: DRY SKIN Trazodone HCl 400 mg/ (Trazodone HCl 50 mg) 450 mg PO HS [facility] Last Admin: 04/18/19 22:04 Dose: 450 mg Vancomycin HCl (Vancomycin Oral Solution) 125 mg PO Q6HPO [facility] Last Admin: 04/19/19 17:25 Dose: 125 mg - Objective Vital Signs: Vital Signs Temperature 97.6 F 04/19/19 14:01 Pulse Rate 68 04/19/19 14:01 Respiratory Rate 18 04/19/19 14:01 Blood Pressure 117/56 L 04/19/19 14:01 O2 Sat by Pulse Oximetry (%) 97 04/19/19 09:00 Constitutional: Yes: No Distress, Calm HENT: Yes: Atraumatic Cardiovascular: Yes: Regular Rate and Rhythm Respiratory: Yes: Regular Gastrointestinal: Yes: Normal Bowel Sounds, Soft Extremities: Yes: Amputation Wound/Incision: Yes: Dressing Dry and Intact Labs: CBC, BMP 04/18/19 07:15 04/18/19 10:45 INR, PTT INR 1.15 (0.83-1.09) H 04/16/19 07:45 Problem List - Problems (1) Diabetes Code(s): E11.9 - TYPE 2 DIABETES MELLITUS WITHOUT COMPLICATIONS (2) Diastolic CHF Code(s): I50.30 - UNSPECIFIED DIASTOLIC (CONGESTIVE) HEART FAILURE (3) ESRD (end stage renal disease) on dialysis Code(s): N18.6 - END STAGE RENAL DISEASE; Z99.2 - DEPENDENCE ON RENAL DIALYSIS (4) Gangrene of right foot Code(s): I96 - GANGRENE, NOT ELSEWHERE CLASSIFIED (5) HTN (hypertension) Code(s): I10 - ESSENTIAL (PRIMARY) HYPERTENSION (6) Status post amputation of right foot Code(s): Z89.431 - ACQUIRED ABSENCE OF RIGHT FOOT (7) Amputation, below knee, unilateral, traumatic Code(s): S88.119A - COMPLETE TRAUM AMP AT [facility] & ANK, UNSP LOW LEG, INIT Qualifiers: Encounter type: subsequent encounter Laterality: left Qualified Code(s): S88.112D - Complete traumatic amputation at level between knee and ankle, left lower leg, subsequent encounter (8) Bacteremia due to Gram-positive bacteria Code(s): R78.81 - BACTEREMIA (9) Hemodialysis access, AV graft Code(s): Z99.2 - DEPENDENCE ON RENAL DIALYSIS (10) Osteomyelitis of right foot Code(s): M86.9 - OSTEOMYELITIS, UNSPECIFIED Qualifiers: (11) Peripheral vascular disease due to secondary diabetes Code(s): E13.51 - OTH DIABETES W DIABETIC PERIPHERAL ANGIOPATHY W/O GANGRENE (12) Sepsis Code(s): A41.9 - SEPSIS, UNSPECIFIED ORGANISM Qualifiers: Sepsis type: methicillin susceptible Staphylococcus aureus Qualified Code(s ): A41.01 - Sepsis due to Methicillin susceptible Staphylococcus aureus (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 Code(s): J43.9 - EMPHYSEMA, UNSPECIFIED (14) Diabetic neuropathy Code(s): E11.40 - TYPE 2 DIABETES MELLITUS WITH DIABETIC NEUROPATHY, UNSP Qualifiers: Diabetes mellitus type: type 2 Diabetes mellitus complication detail: diabetic polyneuropathy Qualified Code(s): E11.42 - Type 2 diabetes mellitus with diabetic polyneuropathy (15) HTN (hypertension) Code(s): I10 - ESSENTIAL (PRIMARY) HYPERTENSION Qualifiers: Hypertension type: essential hypertension Qualified Code(s): I10 - Essential (primary) hypertension Assessment/Plan Gram Positive Bacteremia Sepsis Rt foot gangrene s/p Guillotine amp with subsequent Rt BKA ESRD on HD DM with neuropathy PVD -- s/p course of IV antibiotics, on Vancomycin po (c. diff toxin neg, antigen pos) -- wbc remains elevated but stable, otherwise afebrile, vitals normal -- continue monitor wbc
[2019-04-19] MEDS: TRAZODONE HCL PO SCH (21:47)
[2019-04-19] MEDS: MELATONIN 5 MG TABLETS PO SCH (21:48)
[2019-04-19] MEDS: LIDOCAINE PATCH REMOVAL MC SCH (21:48)
[2019-04-19] MEDS: INSULIN (LEVEMIR) 100 UNITS/ML UNITS SQ SCH (21:48)
[2019-04-20] MEDS: METHADONE HCL 5 MG TABLET PO SCH ×3 (06:35→21:45)
[2019-04-20] MEDS: GABAPENTIN 300 MG CAPSULE (FP) PO SCH ×3 (06:35→21:46)
[2019-04-20] MEDS: INSULIN SLIDING SCALE (NOVOLOG) 1 VIAL SQ SCH ×4 (06:36→21:46)
[2019-04-20] MEDS: VANCOMYCIN 250 MG/5 ML ORAL SOLUTION PO SCH ×4 (06:36→23:57)
[2019-04-20 08:01] LABS: BASO % 0.5 % (0-2.0); EOS % 1.4 % (0-4.5); HEMOGLOBIN 7.5 GM/dL (11.7-16.9); LYMPH % 10.7 % (8-40); MCHC 31.1 g/dl (32.0-35.9); MEAN PLT VOLUME 8.1 fl (7.5-11.1); MONO % 6.7 % (3.8-10.2); NEUT % 80.7 % (42.8-82.8); PLATELET COUNT 460 K/MM3 (134-434); RBC 2.67 M/mm3 (4.00-5.60); RDW 16.8 % (11.9-15.9)
[2019-04-20 08:55] LABS: BLOOD UREA NITROGEN 43.3 mg/dL (7-18); CALCIUM 8.2 mg/dL (8.5-10.1); MAGNESIUM 2.6 mg/dL (1.8-2.4); PHOSPHOROUS 4.3 mg/dL (2.5-4.9); POTASSIUM 4.2 mmol/L (3.5-5.1)
[2019-04-20] MEDS: AMINO ACIDS/PROTEIN HYDROLYS 30 ML LIQUID.PKT PO SCH ×2 (08:55→17:15)
[2019-04-20] MEDS: CALCIUM ACETATE 667 MG CAPSULE (FP) PO SCH ×3 (08:55→17:15)
[2019-04-20 09:08] VITALS: BMI 21.7
[2019-04-20] MEDS: LIDOCAINE 5% TOPICAL PATCH TP SCH (09:33)
[2019-04-20] MEDS: FLUTICASONE PROP 0.05% 16 GM NASAL SPRAY NS SCH (09:40)
[2019-04-20] MEDS: NIFEdipine E.R 60 MG TABLET (UD) PO SCH (09:41)
[2019-04-20] MEDS: VITAMIN B COMP W-C 1 EA TABLET PO SCH (09:41)
--- NOTE | 2019-04-20 11:32 | PN ---
Teaching Attending Note Name of Resident: Srini Adame ATTENDING PHYSICIAN STATEMENT I saw and evaluated the patient. I reviewed the resident's note and discussed the case with the resident. I agree with the resident's findings and plan as documented with exceptions below. SUBJECTIVE: Patient seen and examined. pain "all over". no new concerns. OBJECTIVE: Vital Signs Period Temp Pulse Resp BP Sys/Gutierrez Pulse Ox Last 24 Hr 97.3 F-98.0 F 60-86 18-20 82-145/50-82 96-97 Intake & Output 04/17/19 04/18/19 04/19/19 04/20/19 23:59 23:59 23:59 23:59 Intake Total 189 653 2349 500 Output Total 150 100 300 Balance 118 933 6049 200 Weight 178 lb 179 lb 179 lb 4 oz 179 lb 8 oz General: sitting in bed, no acute distress Chest: decreased effort, no rales or wheezing Abdomen:Soft, obese, NT Extremities: bilateral BKA, right stump dressing with YASMIN wrap cleaning, further exam deferred Home Medications Medication Instructions Recorded Albuterol 0.083% Nebulizer Coretta 1 amp NEB Q4H PRN #120 amp 08/23/17 [Ventolin 0.083% Nebulizer Soln -] Fluticasone Prop 0.05% Nasal 1 - 2 spray NS DAILY #1 spray.pump 08/23/17 [Flonase -] Insulin Sliding Scale [Novolog 1 vial SQ ACHS units 10/06/17 Vial Sliding Scale -] Lidocaine 5% Patch [Lidoderm -] 1 patch TP DAILY patch 10/06/17 Lidocaine Patch Removal [Lidoderm 1 each MC DAILY@2200 each 10/06/17 Patch Removal] traZODone HCL [Desyrel -] 450 mg PO HS 04/07/19 Methadone [Dolophine -] 2.5 mg PO TID 04/16/19 Doxazosin Mesylate [Cardura -] 2 mg PO HS #30 tablet 04/20/19 Gabapentin [Neurontin -] 300 mg PO TID #90 capsule 04/20/19 Insulin (Levemir) [Levemir Vial] 3 units SQ HS #1 vial 04/20/19 Insulin Sliding Scale [Novolog 1 vial SQ HS #1 vial 04/20/19 Vial Sliding Scale -] Insulin Sliding Scale [Novolog 1 vial SQ TIDAC #1 vial 04/20/19 Vial Sliding Scale -] Nifedipine ER [Procardia XL -] 60 mg PO DAILY #30 tab.er.24 04/20/19 Vancomycin HCl 125 mg PO Q6H #28 capsule 04/20/19 Vitamin B Comp W-C [Nephro-Guilherme -] 1 tablet PO DAILY #30 tablet 04/20/19 Active Medications Albuterol Sulfate (Ventolin 0.083% Nebulizer Soln -) 1 amp NEB Q4H PRN PRN Reason: SHORT OF BREATH/WHEEZING Amino Acids (Prosource No Carb Liquid Pkt) 30 ml PO BID@0800,1730 [facility] Last Admin: 04/20/19 08:55 Dose: 30 ml Calcium Acetate (Phoslo -) 1,334 mg PO TIDCM [facility] Last Admin: 04/20/19 08:55 Dose: 1,334 mg Doxazosin Mesylate (Cardura -) 2 mg PO [facility] Fluticasone Propionate (Flonase -) 1 spray NS DAILY [facility] Last Admin: 04/20/19 09:40 Dose: 1 spray Gabapentin (Neurontin -) 300 mg PO TID [facility] Last Admin: 04/20/19 06:35 Dose: 300 mg Sodium Chloride (Normal Saline -) 250 mls @ 3,000 mls/hr IV PRN PRN PRN Reason: Hypotension during Dialysis Stop: 04/20/19 18:32 Insulin Aspart (Novolog Vial Sliding Scale -) 1 vial SQ [facility]; Protocol Last Admin: 04/19/19 21:48 Dose: 2 units Insulin Aspart (Novolog Vial Sliding Scale -) 1 vial SQ TIDAC [facility]; Protocol Last Admin: 04/20/19 06:36 Dose: Not Given Insulin Detemir (Levemir Vial) 3 units SQ [facility] Last Admin: 04/19/19 21:48 Dose: 3 units Lidocaine (Lidoderm Patch -) 1 patch TP DAILY [facility] Last Admin: 04/20/19 09:33 Dose: 1 patch Melatonin (Melatonin) 10 mg PO [facility] Last Admin: 04/19/19 21:48 Dose: 10 mg Methadone HCl (Dolophine -) 5 mg PO TID [facility] Last Admin: 04/20/19 06:35 Dose: 5 mg Miscellaneous (Lidoderm Patch Removal) 1 each MC DAILY@2200 [facility] Last Admin: 04/19/19 21:48 Dose: 1 each Morphine Sulfate (Morphine Sulfate) 4 mg IVPUSH Q6H PRN PRN Reason: PAIN LEVEL 6-10 Last Admin: 04/19/19 23:30 Dose: 4 mg Multivit/Ca Carb/B Cmplx/FA/Prenat (Nephro-Guilherme -) 1 tablet PO DAILY [facility] Last Admin: 04/20/19 09:41 Dose: 1 tablet Nifedipine (Procardia Xl -) 60 mg PO DAILY [facility] Last Admin: 04/20/19 09:41 Dose: 60 mg Ondansetron HCl (Zofran Injection) 4 mg IVPUSH Q6H PRN PRN Reason: NAUSEA AND/OR VOMITING Petrolatum (Vaseline) 1 applic TP DAILY PRN PRN Reason: DRY SKIN Trazodone HCl 400 mg/ (Trazodone HCl 50 mg) 450 mg PO HS [facility] Last Admin: 04/19/19 21:47 Dose: 450 mg Vancomycin HCl (Vancomycin Oral Solution) 125 mg PO Q6HPO [facility] Last Admin: 04/20/19 06:36 Dose: 125 mg Laboratory Results - last 24 hr 04/19/19 04/19/19 04/19/19 11:30 17:19 21:46 WBC RBC Hgb Hct MCV MCH MCHC RDW Plt Count MPV Absolute Neuts (auto) Neutrophils % Lymphocytes % Monocytes % Eosinophils % Basophils % Nucleated RBC % Sodium Potassium Chloride Carbon Dioxide Anion Gap BUN Creatinine Est GFR (CKD-EPI)AfAm Est GFR (CKD-EPI)NonAf POC Glucometer 176 247 238 Random Glucose Calcium Phosphorus Magnesium 04/20/19 04/20/19 04/20/19 06:33 06:35 06:35 WBC 13.0 H RBC 2.67 L Hgb 7.5 L Hct 24.0 L MCV 90.0 MCH 28.0 MCHC 31.1 L RDW 16.8 H Plt Count 460 H MPV 8.1 Absolute Neuts (auto) 10.5 H Neutrophils % 80.7 Lymphocytes % 10.7 D Monocytes % 6.7 Eosinophils % 1.4 Basophils % 0.5 Nucleated RBC % 0 Sodium 140 Potassium 4.2 Chloride 101 Carbon Dioxide 30 Anion Gap 8 BUN 43.3 H Creatinine 5.0 H Est GFR (CKD-EPI)AfAm 13.20 Est GFR (CKD-EPI)NonAf 11.39 POC Glucometer 126 Random Glucose 124 H Calcium 8.2 L Phosphorus 4.3 Magnesium 2.6 H Microbiology 04/09/19 10:20 Blood - Peripheral Venous Blood Culture - Final NO GROWTH AFTER 5 DAYS INCUBATION 04/09/19 10:42 Blood - Peripheral Venous Blood Culture - Final NO GROWTH AFTER 5 DAYS INCUBATION 04/09/19 12:15 Foot - Rt Transmetatarsal Amp. Site Gram Stain - Final 04/09/19 12:15 Foot - Rt Transmetatarsal Amp. Site Wound Culture - Final Enterococcus Faecalis Mr S Aureus Morganella Morganii 04/07/19 18:00 Bone Gram Stain - Final 04/07/19 18:00 Bone Tissue Culture - Final Morganella Morganii Proteus Vulgaris Enterococcus Faecalis Mr S Aureus Alpha Hemolytic Streptococcus 04/07/19 18:00 Bone Anaerobic Culture - Final 04/07/19 17:30 Foot - Rt Transmetatarsal Amp. Site Gram Stain - Final 04/07/19 17:30 Foot - Rt Transmetatarsal Amp. Site Wound Culture - Final Morganella Morganii Enterococcus Faecalis Mr S Aureus Proteus Vulgaris 04/06/19 17:45 Foot - Right Gram Stain - Final 04/06/19 17:45 Foot - Right Wound Culture - Final Proteus Vulgaris Mr S Aureus Enterococcus Faecalis 04/08/19 16:10 Stool Clostridioides difficile Antigen - Final 04/08/19 16:10 Stool Clostridioides difficile Toxin Assay - Final 04/06/19 17:15 Blood - Peripheral Venous Blood Culture - Final Presumptive Mrsa (Pbp2a Pos) Streptococcus Mitis 04/06/19 17:45 Blood - Peripheral Venous Blood Culture - Final Mr S Aureus ASSESSMENT AND PLAN: 63 year old male with PMhx of ESRD on HD (TTS), IDDM, HTN, PVD s/p L BKA, Diabetic neuropathy, prior h/o MRSA bacteremia 09/2017 suspected from HD catheter , Right IJ thrombus in 09/2017 (suspected catheter related) admitted with progressive non-healing right foot swelling, redness, foul smelling discharge, chills. 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 Afebrile, bacteremia cleared. Off Zosyn. Vancomycin for total 2 weeks (dose to be given after HD) (last Day Apr 22) Follow up surgical path from 04/17 TTE neg for vegetation. Repeat blood cx neg. Detox input noted, methadone increased. taper morphine to off prior to dc. Endocrine input noted. levemir 3 units hs, 3 meals, avoid snacking, ISS. BP soft, decreased doxazocin to 2 mg , changed to hs, decreased Nifedipine to 60 mg daily. Off IVF, HD per renal, plan for fluid removal today. s/p 2 units PRBC. Epopoeitin per renal. No further diarrhea, PO vancomycin, will continue 1 week after completion of abx. DVTPPX heparin dispo to SNF pending bed availability. Plan discussed with patient.
[2019-04-20] MEDS ORDERED: SODIUM CHLORIDE 250 ML IV PRN (11:37)
[2019-04-20] MEDS ORDERED: EPOETIN ALFA 20,000 UNIT/1 ML VIAL IVPUSH ONE (12:15)
[2019-04-20] MEDS ORDERED: PT OWN MED DRAWER 7, Y5N ONE (13:06)
--- NOTE | 2019-04-20 13:41 | PN ---
Physical Exam: SUBJECTIVE: Patient seen and examined at the bedside. Noted that he still had some pain but it was relatively well controlled. Endorsed good appetite. Denied any cp, sob, abd pain, n/v/c/d, fever, chills, headaches, dizziness, lightheadedness. OBJECTIVE: Vital Signs Period Temp Pulse Resp BP Sys/Gutierrez Pulse Ox Last 24 Hr 97.3 F-98.0 F 60-86 18-20 82-145/50-82 96-97 GENERAL: The patient is awake, alert, and fully oriented, in no acute distress. HEAD: Normal with no signs of trauma. EYES: PERRL, extraocular movements intact, sclera anicteric, conjunctiva clear. ENT: Oropharynx clear without exudates, moist mucous membranes. NECK: Trachea midline, full range of motion, supple. LUNGS: Breath sounds equal, clear to auscultation bilaterally, no wheezes, no crackles, no accessory muscle use. HEART: Regular rate and rhythm, S1, S2 without murmur, rubs. ABDOMEN: Soft, nontender, nondistended, normoactive bowel sounds, no guarding, no rebound, no masses. EXTREMITIES: Amputation L BKA and R BKA. Dressings dry on R side and in immobilizer. NEUROLOGICAL: Cranial nerves II through XII grossly intact. 5/5 muscle strength upper and lower extremities, bilaterally. L and R BKA. PSYCH: Normal mood and affect. Laboratory Results - last 24 hr 04/19/19 04/19/19 04/20/19 17:19 21:46 06:33 WBC RBC Hgb Hct MCV MCH MCHC RDW Plt Count MPV Absolute Neuts (auto) Neutrophils % Lymphocytes % Monocytes % Eosinophils % Basophils % Nucleated RBC % Sodium Potassium Chloride Carbon Dioxide Anion Gap BUN Creatinine Est GFR (CKD-EPI)AfAm Est GFR (CKD-EPI)NonAf POC Glucometer 247 238 126 Random Glucose Calcium Phosphorus Magnesium 04/20/19 04/20/19 04/20/19 06:35 06:35 11:51 WBC 13.0 H RBC 2.67 L Hgb 7.5 L Hct 24.0 L MCV 90.0 MCH 28.0 MCHC 31.1 L RDW 16.8 H Plt Count 460 H MPV 8.1 Absolute Neuts (auto) 10.5 H Neutrophils % 80.7 Lymphocytes % 10.7 D Monocytes % 6.7 Eosinophils % 1.4 Basophils % 0.5 Nucleated RBC % 0 Sodium 140 Potassium 4.2 Chloride 101 Carbon Dioxide 30 Anion Gap 8 BUN 43.3 H Creatinine 5.0 H Est GFR (CKD-EPI)AfAm 13.20 Est GFR (CKD-EPI)NonAf 11.39 POC Glucometer 261 Random Glucose 124 H Calcium 8.2 L Phosphorus 4.3 Magnesium 2.6 H Active Medications Generic Name Dose Route Start Last Admin Trade Name Freq PRN Reason Stop Dose Admin Albuterol Sulfate 1 amp 04/17/19 16:07 Ventolin 0.083% Nebulizer Soln - NEB Q4H PRN SHORT OF BREATH/WHEEZING Amino Acids 30 ml 04/17/19 17:30 04/20/19 08:55 Prosource No Carb Liquid Pkt PO 30 ml BID@0800,1730 [facility] Administration Calcium Acetate 1,334 mg 04/17/19 17:30 04/20/19 08:55 Phoslo - PO 1,334 mg TIDCM [facility] Administration Doxazosin Mesylate 2 mg 04/20/19 22:00 Cardura - PO HS [facility] Fluticasone Propionate 1 spray 04/18/19 10:00 04/20/19 09:40 Flonase - NS 1 spray DAILY [facility] Administration Gabapentin 300 mg 04/17/19 22:00 04/20/19 06:35 Neurontin - PO 300 mg TID [facility] Administration Sodium Chloride 250 mls @ 3,000 mls/hr 04/20/19 11:37 Normal Saline - IV 04/21/19 11:37 PRN PRN Hypotension during Dialysis Insulin Aspart 1 vial 04/17/19 22:00 04/19/19 21:48 Novolog Vial Sliding Scale - SQ 2 units HS [facility] Administration Protocol Insulin Aspart 1 vial 04/17/19 16:30 04/20/19 06:36 Novolog Vial Sliding Scale - SQ Not Given TIDAC [facility] Protocol Insulin Detemir 3 units 04/17/19 22:00 04/19/19 21:48 Levemir Vial SQ 3 units HS [facility] Administration Lidocaine 1 patch 04/18/19 10:00 04/20/19 09:33 Lidoderm Patch - TP 1 patch DAILY [facility] Administration Melatonin 10 mg 04/17/19 22:00 04/19/19 21:48 Melatonin PO 10 mg HS [facility] Administration Methadone HCl 5 mg 04/17/19 22:00 04/20/19 06:35 Dolophine - PO 5 mg TID [facility] Administration Miscellaneous 1 each 04/17/19 22:00 04/19/19 21:48 Lidoderm Patch Removal MC 1 each DAILY@2200 [facility] Administration Morphine Sulfate 2 mg 04/20/19 15:39 Morphine Sulfate IVPUSH Q6H PRN PAIN LEVEL 6-10 Multivit/Ca Carb/B Cmplx/FA/Prenat 1 tablet 04/18/19 10:00 04/20/19 09:41 Nephro-Guilherme - PO 1 tablet DAILY [facility] Administration Nifedipine 60 mg 04/20/19 10:00 04/20/19 09:41 Procardia Xl - PO 60 mg DAILY [facility] Administration Ondansetron HCl 4 mg 04/17/19 16:07 Zofran Injection IVPUSH Q6H PRN NAUSEA AND/OR VOMITING Petrolatum 1 applic 04/17/19 16:07 Vaseline TP DAILY PRN DRY SKIN Trazodone HCl 400 mg/ 450 mg 04/17/19 22:00 04/19/19 21:47 Trazodone HCl 50 mg PO 450 mg HS [facility] Administration Vancomycin HCl 125 mg 04/17/19 18:00 04/20/19 06:36 Vancomycin Oral Solution PO 125 mg Q6HPO [facility] Administration Microbiology 04/09/19 10:20 Blood - Peripheral Venous Blood Culture - Final NO GROWTH AFTER 5 DAYS INCUBATION 04/09/19 10:42 Blood - Peripheral Venous Blood Culture - Final NO GROWTH AFTER 5 DAYS INCUBATION 04/09/19 12:15 Foot - Rt Transmetatarsal Amp. Site Gram Stain - Final 04/09/19 12:15 Foot - Rt Transmetatarsal Amp. Site Wound Culture - Final Enterococcus Faecalis Mr S Aureus Morganella Morganii 04/07/19 18:00 Bone Gram Stain - Final 04/07/19 18:00 Bone Tissue Culture - Final Morganella Morganii Proteus Vulgaris Enterococcus Faecalis Mr S Aureus Alpha Hemolytic Streptococcus 04/07/19 18:00 Bone Anaerobic Culture - Final 04/07/19 17:30 Foot - Rt Transmetatarsal Amp. Site Gram Stain - Final 04/07/19 17:30 Foot - Rt Transmetatarsal Amp. Site Wound Culture - Final Morganella Morganii Enterococcus Faecalis Mr S Aureus Proteus Vulgaris 04/06/19 17:45 Foot - Right Gram Stain - Final 04/06/19 17:45 Foot - Right Wound Culture - Final Proteus Vulgaris Mr S Aureus Enterococcus Faecalis 04/08/19 16:10 Stool Clostridioides difficile Antigen - Final 04/08/19 16:10 Stool Clostridioides difficile Toxin Assay - Final 04/06/19 17:15 Blood - Peripheral Venous Blood Culture - Final Presumptive Mrsa (Pbp2a Pos) Streptococcus Mitis 04/06/19 17:45 Blood - Peripheral Venous Blood Culture - Final Mr S Aureus ASSESSMENT/PLAN: Luciano Judge is a 61 year old male with a past medical history of DM, HTN, ESRD on dialysis (TThS), left BKA, diabetic neuropathy, hx of MRSA bacteremia presenting for a sepsis from likely osteomyelitis of R foot. Sepsis from Osteomyelitis - elevated WBC and febrile 100.4, has been afebrile - foot x-ray with emphysematous changes, deformity, lucency, destructive changes of the distal head of third metatarsal, metatarsal head, base of R third proximal phalynx consistent with osteomyelitis - ID consulted, Vancomycin, completed total 2 weeks of vancomycin, monitor off abx and follow up outpatient - bacteremia with blood culture growing MRSA, repeat blood cultures negative - wound culture as above, continue to follow - pathology results showing that bone margins clear after BKA, viable skin and soft tissue margins, portion of leg with abscesses - continue to follow up on path results from final BKA closure - seen by podiatry and has undergone TMA and subsequent BKA guillotine and formal closure - POD day #3 BKA - echo ordered to evaluate for ?endocarditis, showing normal LV function, size, function, normal EF, ?poor LV compliance, borderline aortic root dilation, trace mitral regurg, mild pericardial effusion, no evidence of vegetation, further workup as per ID - hyperbaric consult as per podiatry - physical therapy, to continue at SNF ESRD - dialysis TThS schedule - avoid fluid overload - nephrology consulted, recs appreciated Diarrhea secondary to likely c diff - positive for c diff antigen - continue oral vancomycin 125mg q6h. will need 1 additional week after completion of IV antibiotics - no longer complains of diarrhea HTN - doxazosin decreased to 2mg qhs, nifedipine decreased to 60mg daily in setting of hypotensive episodes - cardio consulted, recs appreciated DM - hold Levemir 12 units qAM, due to hypoglycemic episode, currently on Levemir 3 units as per endocrine - ISS - BGM - A1c 10.8 - will require tight insulin dosing in the setting of osteomyelitis - endocrinology consulted, recs appreciated, will f/u with endocrine outpatient for optimization of insulin dosing Anemia - likely in setting of chronic renal disease - iron studies showing anemia of chronic disease - given Epogen during dialysis - continue to monitor H/H - 3 units of PRBCs total given during admission Shoulder pain/chronic pain - methadone 2.5mg tid, confirmed with [facility] and confirmed with patient's pharmacy [facility], last ordered and dispensed on 03/13 for a 30 day course, held currently in favor of morphine for pain control s/p BKA - morphine 4mg q4h prn - methadone increased to 5mg tid as per Dr. Carlos - gabapentin 300mg tid - lidocaine patch - pain management consulted Hx of PTSD - trazodone 450mg qhs Prophylaxis - heparin 5000 units subq bid FEN - no IVF, avoid fluid overload - continue to monitor electrolytes and replete as necessary - renal diet, with supplementation, restart after surgery Dispo - continue to monitor on Med-surg - will go to SNF Visit type - Emergency Visit Emergency Visit: Yes ED Registration Date: 04/06/19 Care time: The patient presented to the Emergency Department on the above date and was hospitalized for further evaluation of their emergent condition. - New Patient This patient is new to me today: No - Critical Care Critical Care patient: No
--- NOTE | 2019-04-20 14:45 | PN ---
Progress Note, Physician History of Present Illness: no new issues s/p amputation - Current Medication List Current Medications: Active Medications Albuterol Sulfate (Ventolin 0.083% Nebulizer Soln -) 1 amp NEB Q4H PRN PRN Reason: SHORT OF BREATH/WHEEZING Amino Acids (Prosource No Carb Liquid Pkt) 30 ml PO BID@0800,1730 [facility] Last Admin: 04/20/19 08:55 Dose: 30 ml Calcium Acetate (Phoslo -) 1,334 mg PO TIDCM [facility] Last Admin: 04/20/19 08:55 Dose: 1,334 mg Doxazosin Mesylate (Cardura -) 2 mg PO HS [facility] Fluticasone Propionate (Flonase -) 1 spray NS DAILY [facility] Last Admin: 04/20/19 09:40 Dose: 1 spray Gabapentin (Neurontin -) 300 mg PO TID [facility] Last Admin: 04/20/19 06:35 Dose: 300 mg Sodium Chloride (Normal Saline -) 250 mls @ 3,000 mls/hr IV PRN PRN PRN Reason: Hypotension during Dialysis Stop: 04/21/19 11:37 Insulin Aspart (Novolog Vial Sliding Scale -) 1 vial SQ [facility]; Protocol Last Admin: 04/19/19 21:48 Dose: 2 units Insulin Aspart (Novolog Vial Sliding Scale -) 1 vial SQ TIDAC [facility]; Protocol Last Admin: 04/20/19 06:36 Dose: Not Given Insulin Detemir (Levemir Vial) 3 units SQ [facility] Last Admin: 04/19/19 21:48 Dose: 3 units Lidocaine (Lidoderm Patch -) 1 patch TP DAILY [facility] Last Admin: 04/20/19 09:33 Dose: 1 patch Melatonin (Melatonin) 10 mg PO HS [facility] Last Admin: 04/19/19 21:48 Dose: 10 mg Methadone HCl (Dolophine -) 5 mg PO TID [facility] Last Admin: 04/20/19 06:35 Dose: 5 mg Miscellaneous (Lidoderm Patch Removal) 1 each MC DAILY@2200 [facility] Last Admin: 04/19/19 21:48 Dose: 1 each Morphine Sulfate (Morphine Sulfate) 2 mg IVPUSH Q6H PRN PRN Reason: PAIN LEVEL 6-10 Multivit/Ca Carb/B Cmplx/FA/Prenat (Nephro-Guilherme -) 1 tablet PO DAILY [facility] Last Admin: 12/23/19 09:41 Dose: 1 tablet Nifedipine (Procardia Xl -) 60 mg PO DAILY [facility] Last Admin: 04/20/19 09:41 Dose: 60 mg Ondansetron HCl (Zofran Injection) 4 mg IVPUSH Q6H PRN PRN Reason: NAUSEA AND/OR VOMITING Petrolatum (Vaseline) 1 applic TP DAILY PRN PRN Reason: DRY SKIN Trazodone HCl 400 mg/ (Trazodone HCl 50 mg) 450 mg PO HS [facility] Last Admin: 04/19/19 21:47 Dose: 450 mg Vancomycin HCl (Vancomycin Oral Solution) 125 mg PO Q6HPO [facility] Last Admin: 04/20/19 06:36 Dose: 125 mg - Objective Vital Signs: Vital Signs Temperature 97.3 F L 04/20/19 09:41 Pulse Rate 74 04/20/19 13:53 Respiratory Rate 18 04/20/19 13:30 Blood Pressure 111/63 04/20/19 13:53 O2 Sat by Pulse Oximetry (%) 96 04/20/19 09:00 Constitutional: Yes: No Distress, Calm Cardiovascular: Yes: S1, S2 Respiratory: Yes: Regular, CTA Bilaterally Gastrointestinal: Yes: Normal Bowel Sounds, Soft Musculoskeletal: Yes: Other Extremities: Yes: Other Neurological: Yes: Alert, Oriented Psychiatric: Yes: Alert, Oriented Labs: CBC, BMP 04/20/19 06:35 04/20/19 06:35 INR, PTT INR 1.15 (0.83-1.09) H 04/16/19 07:45 Assessment/Plan 61 year old male with a past medical history of DM, HTN, ESRD on dialysis ([facility]) , left BKA, diabetic neuropathy, hx of MRSA bacteremia, presenting for a sepsis from likely osteomyelitis of R foot. sepsis osteo r foot esrd htn dm gas gangrene mrsa bacteremia Problem List - Problems (1) Diabetes Code(s): E11.9 - TYPE 2 DIABETES MELLITUS WITHOUT COMPLICATIONS (2) Diastolic CHF Code(s): I50.30 - UNSPECIFIED DIASTOLIC (CONGESTIVE) HEART FAILURE (3) ESRD (end stage renal disease) on dialysis Code(s): N18.6 - END STAGE RENAL DISEASE; Z99.2 - DEPENDENCE ON RENAL DIALYSIS (4) Gangrene of right foot Code(s): I96 - GANGRENE, NOT ELSEWHERE CLASSIFIED (5) HTN (hypertension) Code(s): I10 - ESSENTIAL (PRIMARY) HYPERTENSION (6) Status post amputation of right foot Code(s): Z89.431 - ACQUIRED ABSENCE OF RIGHT FOOT (7) Amputation, below knee, unilateral, traumatic Code(s): S88.119A - COMPLETE TRAUM AMP AT LEV BETW KN & ANKL, UNSP LOW LEG, INIT Qualifiers: Encounter type: subsequent encounter Laterality: left Qualified Code(s): S88.112D - Complete traumatic amputation at level between knee and ankle, left lower leg, subsequent encounter (8) Bacteremia due to Gram-positive bacteria Code(s): R78.81 - BACTEREMIA (9) Hemodialysis access, AV graft Code(s): Z99.2 - DEPENDENCE ON RENAL DIALYSIS (10) Osteomyelitis of right foot Code(s): M86.9 - OSTEOMYELITIS, UNSPECIFIED Qualifiers: (11) Peripheral vascular disease due to secondary diabetes Code(s): E13.51 - OTH DIABETES W DIABETIC PERIPHERAL ANGIOPATHY W/O GANGRENE (12) Sepsis Code(s): A41.9 - SEPSIS, UNSPECIFIED ORGANISM Qualifiers: Sepsis type: methicillin susceptible Staphylococcus aureus Qualified Code(s ): A41.01 - Sepsis due to Methicillin susceptible Staphylococcus aureus (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
--- NOTE | 2019-04-20 16:46 | PN ---
Progress Note (short form) - Note Progress Note: POD#1 Pt without any complaints today, getting HD. Vital Signs Period Temp Pulse Resp BP Sys/Gutierrez Pulse Ox Last 24 Hr 97.3 F-98.0 F 60-86 18-20 82-145/50-82 96-97 GEN: A&0x3, NAD Right leg: inc c/d/i with saravanan. No drainage or erythema. Skin edges well approximated and without evidence of ischemia. CBC, BMP // 06:35 12// 06:35 A/P: 63 yo male s/p Right BKA, POD#3 Dressing changed today and xeroform, kerlix and leona wrap applies. Knee immobilizer reapplied also D/w Dr. Daly, continue xeroform, kerlix, leona for dressing. F/u in 3 weeks for staple removal in the wound clinic
--- NOTE | 2019-04-20 17:43 | PN ---
Progress Note (short form) - Note Progress Note: No new complaints Fluctuating blood sugar Vital Signs Period Temp Pulse Resp BP Sys/Gutierrez Pulse Ox Last 24 Hr 97.3 F-98.0 F 60-86 18-20 82-145/50-82 96-97 PE: AOx3 Neck: Supple, NO JVD HEENT: EOM Lungs: CTA CVS; S1s2 Abd: Benign Ext: Left BKA, Rt leg surgery site dressing Neuro: No focal deficit CMP Sodium 140 mmol/L (136-145) 04/20/19 06:35 Potassium 4.2 mmol/L (3.5-5.1) 04/20/19 06:35 Chloride 101 mmol/L (98-107) 04/20/19 06:35 Carbon Dioxide 30 mmol/L (21-32) 04/20/19 06:35 Anion Gap 8 MMOL/L (8-16) 04/20/19 06:35 BUN 43.3 mg/dL (7-18) H 04/20/19 06:35 Creatinine 5.0 mg/dL (0.55-1.3) H 04/20/19 06:35 Est GFR (CKD-EPI)AfAm 13.20 04/20/19 06:35 Est GFR (CKD-EPI)NonAf 11.39 04/20/19 06:35 POC Glucometer 259 UNITS (80-120) 04/20/19 17:11 Random Glucose 124 mg/dL (74-106) H 04/20/19 06:35 Hemoglobin A1c % 10.8 % (4.2-6.3) H 04/07/19 11:15 Lactic Acid 0.9 mmol/L (0.4-2.0) 04/06/19 23:00 Calcium 8.2 mg/dL (8.5-10.1) L 04/20/19 06:35 Phosphorus 4.3 mg/dL (2.5-4.9) 04/20/19 06:35 Magnesium 2.6 mg/dL (1.8-2.4) H 04/20/19 06:35 Iron 21 ug/dL (50-175) L 04/09/19 09:30 TIBC 70 ug/dL (250-450) L 04/09/19 09:30 Iron Saturation 30 % (17.5-39) 04/09/19 09:30 Unsaturated IBC 49 ug/dL (200-275) L 04/09/19 09:30 Ferritin 1970.5 ng/ml (8-388) H 04/09/19 09:30 Total Bilirubin 0.4 mg/dL (0.2-1) 04/12/19 09:30 AST 9 U/L (15-37) L 04/12/19 09:30 ALT 8 U/L (13-61) L 04/12/19 09:30 Alkaline Phosphatase 151 U/L (45-117) H 04/12/19 09:30 Creatine Kinase 26 U/L (26-308) 04/06/19 23:00 Troponin I < 0.02 ng/ml (0.00-0.05) 04/06/19 23:00 C-Reactive Protein 22.3 MG/DL (0.00-0.3) H 04/07/19 11:15 Total Protein 5.2 g/dl (6.4-8.2) L 04/12/19 09:30 Albumin 1.4 g/dl (3.4-5.0) L 04/12/19 09:30 Vitamin B12 1212 pg/ml (193-986) H 04/09/19 09:30 Serum Folate 13 ng/mL (3.1-17.5) 04/09/19 09:30 Current Medications Generic Name Dose Route Start Last Admin Trade Name Freq PRN Reason Stop Dose Admin Albuterol Sulfate 1 amp 04/17/19 16:07 Ventolin 0.083% Nebulizer Soln - NEB Q4H PRN SHORT OF BREATH/WHEEZING Amino Acids 30 ml 04/17/19 17:30 04/20/19 17:15 Prosource No Carb Liquid Pkt PO 30 ml BID@0800,1730 [facility] Administration Calcium Acetate 1,334 mg 04/17/19 17:30 04/20/19 17:15 Phoslo - PO 1,334 mg TIDCM [facility] Administration Doxazosin Mesylate 2 mg 04/20/19 22:00 Cardura - PO HS [facility] Fluticasone Propionate 1 spray 04/18/19 10:00 04/20/19 09:40 Flonase - NS 1 spray DAILY [facility] Administration Gabapentin 300 mg 04/17/19 22:00 04/20/19 14:55 Neurontin - PO 300 mg TID [facility] Administration Sodium Chloride 250 mls @ 3,000 mls/hr 04/20/19 11:37 Normal Saline - IV 04/21/19 11:37 PRN PRN Hypotension during Dialysis Insulin Aspart 1 vial 04/17/19 22:00 04/19/19 21:48 Novolog Vial Sliding Scale - SQ 2 units HS [facility] Administration Protocol Insulin Aspart 1 vial 04/17/19 16:30 04/20/19 17:14 Novolog Vial Sliding Scale - SQ 4 unit TIDAC [facility] Administration Protocol Insulin Detemir 3 units 04/17/19 22:00 04/19/19 21:48 Levemir Vial SQ 3 units HS [facility] Administration Lidocaine 1 patch 04/18/19 10:00 04/20/19 09:33 Lidoderm Patch - TP 1 patch DAILY [facility] Administration Melatonin 10 mg 04/17/19 22:00 04/19/19 21:48 Melatonin PO 10 mg HS [facility] Administration Methadone HCl 5 mg 04/17/19 22:00 04/20/19 14:55 Dolophine - PO 5 mg TID [facility] Administration Miscellaneous 1 each 04/17/19 22:00 04/19/19 21:48 Lidoderm Patch Removal MC 1 each DAILY@2200 [facility] Administration Morphine Sulfate 2 mg 04/20/19 15:39 Morphine Sulfate IVPUSH Q6H PRN PAIN LEVEL 6-10 Multivit/Ca Carb/B Cmplx/FA/Prenat 1 tablet 04/18/19 10:00 04/20/19 09:41 Nephro-Guilherme - PO 1 tablet DAILY [facility] Administration Nifedipine 60 mg 04/20/19 10:00 04/20/19 09:41 Procardia Xl - PO 60 mg DAILY [facility] Administration Ondansetron HCl 4 mg 04/17/19 16:07 Zofran Injection IVPUSH Q6H PRN NAUSEA AND/OR VOMITING Petrolatum 1 applic 04/17/19 16:07 Vaseline TP DAILY PRN DRY SKIN Trazodone HCl 400 mg/ 450 mg 04/17/19 22:00 04/19/19 21:47 Trazodone HCl 50 mg PO 450 mg HS [facility] Administration Vancomycin HCl 125 mg 04/17/19 18:00 04/20/19 17:15 Vancomycin Oral Solution PO 125 mg Q6HPO [facility] Administration AP: Right foot Infection/Metatarsal osteomyelitis: S/P Rt BKA S/P Transmetatarsal amputation: Sepsis ESRD on HD DM Uncontrolled: A1c 10.3/Episode of hypoglycemia asymptomatic HTN PVD S/P Left BKA H/O MRSA bacteremia 09/2017 suspected from HD catheter H.O Right IJ thrombus in 09/2017 (suspected catheter related) BGM QACHS Discussed need to eat 3 regular meals and no snacking between meals unless blood sugar if low. Monitor blood sugar closely as pts with CKD tend to be very sensitive to Insulin and develop hypoglycemia frequently Levemir 3 units daily at HS, Hold if FS <140 or pt is NPO Increase Novolog SS coverage Will F/u
--- NOTE | 2019-04-20 18:23 | PN ---
Progress Note (short form) - Note Progress Note: Renal follow up for ESRD on HD Seen and examined during dialysis earlier today BP low 90's systolic UF limited continues to have moderate pain in his lower leg Vital Signs Temperature 97.3 F L 04/20/19 09:41 Pulse Rate 74 04/20/19 15:00 Respiratory Rate 18 04/20/19 13:30 Blood Pressure 111/63 04/20/19 15:00 O2 Sat by Pulse Oximetry (%) 96 04/20/19 09:00 Intake & Output 04/17/19 04/18/19 04/19/19 04/20/19 23:59 23:59 23:59 23:59 Intake Total 889 841 7421 1300 Output Total 325 450 0531 Balance 737 148 6092 -1100 Weight 80.739 kg 81.193 kg 81.306 kg 81.42 kg NAD awake and alert neck supple, no JVD RRR CTA soft NT/ND no LE edema CBC, BMP 04/20/19 06:35 04/20/19 06:35 Current Medications Albuterol Sulfate (Ventolin 0.083% Nebulizer Soln -) 1 amp NEB Q4H PRN PRN Reason: SHORT OF BREATH/WHEEZING Amino Acids (Prosource No Carb Liquid Pkt) 30 ml PO BID@0800,1730 [facility] Last Admin: 04/20/19 17:15 Dose: 30 ml Calcium Acetate (Phoslo -) 1,334 mg PO TIDCM [facility] Last Admin: 04/20/19 17:15 Dose: 1,334 mg Doxazosin Mesylate (Cardura -) 2 mg PO HS [facility] Fluticasone Propionate (Flonase -) 1 spray NS DAILY [facility] Last Admin: 04/20/19 09:40 Dose: 1 spray Gabapentin (Neurontin -) 300 mg PO TID [facility] Last Admin: 04/20/19 14:55 Dose: 300 mg Sodium Chloride (Normal Saline -) 250 mls @ 3,000 mls/hr IV PRN PRN PRN Reason: Hypotension during Dialysis Stop: 04/21/19 11:37 Insulin Aspart (Novolog Vial Sliding Scale -) 1 vial SQ HS [facility]; Protocol Last Admin: 04/19/19 21:48 Dose: 2 units Insulin Aspart (Novolog Vial Sliding Scale -) 1 vial SQ TIDAC [facility]; Protocol Insulin Detemir (Levemir Vial) 3 units SQ HS [facility] Last Admin: 04/19/19 21:48 Dose: 3 units Lidocaine (Lidoderm Patch -) 1 patch TP DAILY [facility] Last Admin: 04/20/19 09:33 Dose: 1 patch Melatonin (Melatonin) 10 mg PO HS [facility] Last Admin: 04/19/19 21:48 Dose: 10 mg Methadone HCl (Dolophine -) 5 mg PO TID [facility] Last Admin: 04/20/19 14:55 Dose: 5 mg Miscellaneous (Lidoderm Patch Removal) 1 each MC DAILY@2200 [facility] Last Admin: 04/19/19 21:48 Dose: 1 each Morphine Sulfate (Morphine Sulfate) 2 mg IVPUSH Q6H PRN PRN Reason: PAIN LEVEL 6-10 Multivit/Ca Carb/B Cmplx/FA/Prenat (Nephro-Guilherme -) 1 tablet PO DAILY [facility] Last Admin: 04/20/19 09:41 Dose: 1 tablet Nifedipine (Procardia Xl -) 60 mg PO DAILY [facility] Last Admin: 04/20/19 09:41 Dose: 60 mg Ondansetron HCl (Zofran Injection) 4 mg IVPUSH Q6H PRN PRN Reason: NAUSEA AND/OR VOMITING Petrolatum (Vaseline) 1 applic TP DAILY PRN PRN Reason: DRY SKIN Trazodone HCl 400 mg/ (Trazodone HCl 50 mg) 450 mg PO HS [facility] Last Admin: 04/19/19 21:47 Dose: 450 mg Vancomycin HCl (Vancomycin Oral Solution) 125 mg PO Q6HPO [facility] Last Admin: 04/20/19 17:15 Dose: 125 mg 63 year old gentleman with history of ESRD on HD (TTS), DM, PVD s/p BKA who presented from home with non-healing foot wound. 1. ESRD on HD 2. Infected foot wound 3. Anemia of CKD 4. Pseudohyponatremia 5. Metabolic acidosis 6. Leukocytosis 7. PVD 8 DM type 2 on insulin tolerating dialysis marginal BP limiting UF to get epogen 20k with HD today Vascular surgery follow up Abx as per ID Thank you Miguel Jansen DO
[2019-04-20] MEDS: MORPHINE SULFATE 2 MG/ML VIAL IVPUSH PRN (19:29)
[2019-04-20] MEDS ORDERED: traZODone HCL 50 MG TABLET (FP) ONE (21:00)
[2019-04-20] MEDS ORDERED: traZODone HCL 100 MG TABLET (FP) ONE (21:00)
[2019-04-20] MEDS: TRAZODONE HCL PO SCH (21:45)
[2019-04-20] MEDS: LIDOCAINE PATCH REMOVAL MC SCH (21:45)
[2019-04-20] MEDS: MELATONIN 5 MG TABLETS PO SCH (21:45)
[2019-04-20] MEDS: INSULIN (LEVEMIR) 100 UNITS/ML UNITS SQ SCH (21:45)
[2019-04-20] MEDS ORDERED: DOXAZOSIN MESYLATE 2 MG TABLET (FP) PO SCH (22:00)
[2019-04-21] MEDS: METHADONE HCL 5 MG TABLET PO SCH ×2 (06:29→14:14)
[2019-04-21] MEDS: INSULIN SLIDING SCALE (NOVOLOG) 1 VIAL SQ SCH ×2 (06:30→12:04)
[2019-04-21] MEDS: GABAPENTIN 300 MG CAPSULE (FP) PO SCH ×2 (06:30→14:14)
[2019-04-21] MEDS: VANCOMYCIN 250 MG/5 ML ORAL SOLUTION PO SCH ×2 (06:30→12:42)
[2019-04-21] MEDS: MORPHINE SULFATE 2 MG/ML VIAL IVPUSH PRN (06:30)
[2019-04-21 08:49] LABS: BLOOD UREA NITROGEN 31.4 mg/dL (7-18); CALCIUM 7.8 mg/dL (8.5-10.1); CREATININE 3.8 mg/dL (0.55-1.3); MAGNESIUM 2.3 mg/dL (1.8-2.4); PHOSPHOROUS 3.3 mg/dL (2.5-4.9)
--- NOTE | 2019-04-21 09:11 | PN ---
Progress Note (short form) - Note Progress Note: Denies any complaints Fluctuating blood sugar, but better today Vital Signs Period Temp Pulse Resp BP Sys/Gutierrez Pulse Ox Last 24 Hr 97.3 F-98.0 F 60-79 17-20 97-141/58-82 96 PE: AOx3 Neck: Supple, NO JVD HEENT: EOM Lungs: CTA CVS; S1s2 Abd: Benign Ext: Left BKA, Rt leg surgery site dressing Neuro: No focal deficit CMP Sodium 141 mmol/L (136-145) 04/21/19 06:45 Potassium 4.0 mmol/L (3.5-5.1) 04/21/19 06:45 Chloride 102 mmol/L (98-107) 04/21/19 06:45 Carbon Dioxide 34 mmol/L (21-32) H 04/21/19 06:45 Anion Gap 5 MMOL/L (8-16) L 04/21/19 06:45 BUN 31.4 mg/dL (7-18) H 04/21/19 06:45 Creatinine 3.8 mg/dL (0.55-1.3) H 04/21/19 06:45 Est GFR (CKD-EPI)AfAm 18.40 04/21/19 06:45 Est GFR (CKD-EPI)NonAf 15.88 04/21/19 06:45 POC Glucometer 112 UNITS (80-120) 04/21/19 06:28 Random Glucose 103 mg/dL (74-106) 04/21/19 06:45 Hemoglobin A1c % 10.8 % (4.2-6.3) H 04/07/19 11:15 Lactic Acid 0.9 mmol/L (0.4-2.0) 04/06/19 23:00 Calcium 7.8 mg/dL (8.5-10.1) L 04/21/19 06:45 Phosphorus 3.3 mg/dL (2.5-4.9) 04/21/19 06:45 Magnesium 2.3 mg/dL (1.8-2.4) 04/21/19 06:45 Iron 21 ug/dL (50-175) L 04/09/19 09:30 TIBC 70 ug/dL (250-450) L 04/09/19 09:30 Iron Saturation 30 % (17.5-39) 04/09/19 09:30 Unsaturated IBC 49 ug/dL (200-275) L 04/09/19 09:30 Ferritin 1970.5 ng/ml (8-388) H 04/09/19 09:30 Total Bilirubin 0.4 mg/dL (0.2-1) 04/12/19 09:30 AST 9 U/L (15-37) L 04/12/19 09:30 ALT 8 U/L (13-61) L 04/12/19 09:30 Alkaline Phosphatase 151 U/L (45-117) H 04/12/19 09:30 Creatine Kinase 26 U/L (26-308) 04/06/19 23:00 Troponin I < 0.02 ng/ml (0.00-0.05) 04/06/19 23:00 C-Reactive Protein 22.3 MG/DL (0.00-0.3) H 04/07/19 11:15 Total Protein 5.2 g/dl (6.4-8.2) L 04/12/19 09:30 Albumin 1.4 g/dl (3.4-5.0) L 04/12/19 09:30 Vitamin B12 1212 pg/ml (193-986) H 04/09/19 09:30 Serum Folate 13 ng/mL (3.1-17.5) 04/09/19 09:30 Current Medications Generic Name Dose Route Start Last Admin Trade Name Freq PRN Reason Stop Dose Admin Albuterol Sulfate 1 amp 04/17/19 16:07 Ventolin 0.083% Nebulizer Soln - NEB Q4H PRN SHORT OF BREATH/WHEEZING Amino Acids 30 ml 04/17/19 17:30 04/20/19 17:15 Prosource No Carb Liquid Pkt PO 30 ml BID@0800,1730 [facility] Administration Calcium Acetate 1,334 mg 04/17/19 17:30 04/20/19 17:15 Phoslo - PO 1,334 mg TIDCM [facility] Administration Doxazosin Mesylate 2 mg 04/20/19 22:00 04/20/19 21:45 Cardura - PO 2 mg HS [facility] Administration Fluticasone Propionate 1 spray 04/18/19 10:00 04/20/19 09:40 Flonase - NS 1 spray DAILY [facility] Administration Gabapentin 300 mg 04/17/19 22:00 04/21/19 06:30 Neurontin - PO 300 mg TID [facility] Administration Sodium Chloride 250 mls @ 3,000 mls/hr 04/20/19 11:37 Normal Saline - IV 04/21/19 11:37 PRN PRN Hypotension during Dialysis Insulin Aspart 1 vial 04/17/19 22:00 04/20/19 21:46 Novolog Vial Sliding Scale - SQ Not Given HS [facility] Protocol Insulin Aspart 1 vial 04/20/19 17:43 04/21/19 06:30 Novolog Vial Sliding Scale - SQ Not Given TIDAC [facility] Protocol Insulin Detemir 3 units 04/17/19 22:00 04/20/19 21:45 Levemir Vial SQ 3 units HS [facility] Administration Lidocaine 1 patch 04/18/19 10:00 04/20/19 09:33 Lidoderm Patch - TP 1 patch DAILY [facility] Administration Melatonin 10 mg 04/17/19 22:00 04/20/19 21:45 Melatonin PO 10 mg HS [facility] Administration Methadone HCl 5 mg 04/17/19 22:00 04/21/19 06:29 Dolophine - PO 5 mg TID [facility] Administration Miscellaneous 1 each 04/17/19 22:00 04/20/19 21:45 Lidoderm Patch Removal MC 1 each DAILY@2200 [facility] Administration Morphine Sulfate 2 mg 04/20/19 15:39 04/21/19 06:30 Morphine Sulfate IVPUSH 2 mg Q6H PRN Administration PAIN LEVEL 6-10 Multivit/Ca Carb/B Cmplx/FA/Prenat 1 tablet 04/18/19 10:00 04/20/19 09:41 Nephro-Guilherme - PO 1 tablet DAILY [facility] Administration Nifedipine 60 mg 04/20/19 10:00 04/20/19 09:41 Procardia Xl - PO 60 mg DAILY [facility] Administration Ondansetron HCl 4 mg 04/17/19 16:07 Zofran Injection IVPUSH Q6H PRN NAUSEA AND/OR VOMITING Petrolatum 1 applic 04/17/19 16:07 Vaseline TP DAILY PRN DRY SKIN Trazodone HCl 400 mg/ 450 mg 04/17/19 22:00 04/20/19 21:45 Trazodone HCl 50 mg PO 450 mg HS [facility] Administration Vancomycin HCl 125 mg 04/17/19 18:00 04/21/19 06:30 Vancomycin Oral Solution PO 125 mg Q6HPO [facility] Administration AP: Right foot Infection/Metatarsal osteomyelitis: S/P Rt BKA S/P Transmetatarsal amputation: Sepsis ESRD on HD DM Uncontrolled: A1c 10.3/Episode of hypoglycemia asymptomatic HTN PVD S/P Left BKA H/O MRSA bacteremia 09/2017 suspected from HD catheter H.O Right IJ thrombus in 09/2017 (suspected catheter related) BGM QACHS Discussed need to eat 3 regular meals and no snacking between meals unless blood sugar if low. Monitor blood sugar closely as pts with CKD tend to be very sensitive to Insulin and develop hypoglycemia frequently Levemir 3 units daily at HS, Hold if FS <140 or pt is NPO Continue Novolog SS coverage Will F/u
[2019-04-21] MEDS: CALCIUM ACETATE 667 MG CAPSULE (FP) PO SCH ×2 (09:37→12:42)
[2019-04-21] MEDS: AMINO ACIDS/PROTEIN HYDROLYS 30 ML LIQUID.PKT PO SCH (09:37)
[2019-04-21] MEDS: VITAMIN B COMP W-C 1 EA TABLET PO SCH (09:38)
[2019-04-21] MEDS: LIDOCAINE 5% TOPICAL PATCH TP SCH (09:38)
[2019-04-21] MEDS: FLUTICASONE PROP 0.05% 16 GM NASAL SPRAY NS SCH (09:42)
[2019-04-21] MEDS: NIFEdipine E.R 60 MG TABLET (UD) PO SCH (09:50)
--- NOTE | 2019-04-21 13:41 | PN ---
Progress Note (short form) - Note Progress Note: Renal follow up for ESRD on HD Seen and examined at the bedside no acute complaints no shortness of breath, chest pain pain in the leg is improved Vital Signs Temperature 98.0 F 04/21/19 06:30 Pulse Rate 67 04/21/19 06:30 Respiratory Rate 17 04/21/19 06:30 Blood Pressure 140/72 04/21/19 06:30 O2 Sat by Pulse Oximetry (%) 96 04/20/19 21:00 Intake & Output 04/18/19 04/19/19 04/20/19 04/21/19 23:59 23:59 23:59 23:59 Intake Total 970 1420 1620 560 Output Total 100 2400 Balance 870 1420 -780 560 Weight 81.193 kg 81.306 kg 81.42 kg 81.193 kg NAD awake and alert neck supple, no JVD RRR CTA soft NT/ND no LE edema CBC, BMP 04/20/19 06:35 04/21/19 06:45 Current Medications Albuterol Sulfate (Ventolin 0.083% Nebulizer Soln -) 1 amp NEB Q4H PRN PRN Reason: SHORT OF BREATH/WHEEZING Amino Acids (Prosource No Carb Liquid Pkt) 30 ml PO BID@0800,1730 [facility] Last Admin: 04/21/19 09:37 Dose: 30 ml Calcium Acetate (Phoslo -) 1,334 mg PO TIDCM [facility] Last Admin: 04/21/19 12:42 Dose: 1,334 mg Doxazosin Mesylate (Cardura -) 2 mg PO HS [facility] Last Admin: 04/20/19 21:45 Dose: 2 mg Fluticasone Propionate (Flonase -) 1 spray NS DAILY [facility] Last Admin: 04/21/19 09:42 Dose: 1 spray Gabapentin (Neurontin -) 300 mg PO TID [facility] Last Admin: 04/21/19 06:30 Dose: 300 mg Insulin Aspart (Novolog Vial Sliding Scale -) 1 vial SQ HS [facility]; Protocol Last Admin: 04/20/19 21:46 Dose: Not Given Insulin Aspart (Novolog Vial Sliding Scale -) 1 vial SQ TIDAC [facility]; Protocol Last Admin: 04/21/19 12:04 Dose: Not Given Insulin Detemir (Levemir Vial) 3 units SQ HS [facility] Last Admin: 04/20/19 21:45 Dose: 3 units Lidocaine (Lidoderm Patch -) 1 patch TP DAILY [facility] Last Admin: 04/21/19 09:38 Dose: 1 patch Melatonin (Melatonin) 10 mg PO HS [facility] Last Admin: 04/20/19 21:45 Dose: 10 mg Methadone HCl (Dolophine -) 5 mg PO TID [facility] Last Admin: 04/21/19 06:29 Dose: 5 mg Miscellaneous (Lidoderm Patch Removal) 1 each MC DAILY@2200 [facility] Last Admin: 04/20/19 21:45 Dose: 1 each Morphine Sulfate (Morphine Sulfate) 2 mg IVPUSH Q6H PRN PRN Reason: PAIN LEVEL 6-10 Last Admin: 04/21/19 06:30 Dose: 2 mg Multivit/Ca Carb/B Cmplx/FA/Prenat (Nephro-Guilherme -) 1 tablet PO DAILY [facility] Last Admin: 04/21/19 09:38 Dose: 1 tablet Nifedipine (Procardia Xl -) 60 mg PO DAILY [facility] Last Admin: 04/21/19 09:50 Dose: Not Given Ondansetron HCl (Zofran Injection) 4 mg IVPUSH Q6H PRN PRN Reason: NAUSEA AND/OR VOMITING Petrolatum (Vaseline) 1 applic TP DAILY PRN PRN Reason: DRY SKIN Trazodone HCl 400 mg/ (Trazodone HCl 50 mg) 450 mg PO HS [facility] Last Admin: 04/20/19 21:45 Dose: 450 mg Vancomycin HCl (Vancomycin Oral Solution) 125 mg PO Q6HPO [facility] Last Admin: 04/21/19 12:42 Dose: 125 mg 63 year old gentleman with history of ESRD on HD (TTS), DM, PVD s/p BKA who presented from home with non-healing foot wound. 1. ESRD on HD 2. Infected foot wound 3. Anemia of CKD 4. Pseudohyponatremia 5. Metabolic acidosis 6. Leukocytosis 7. PVD 8 DM type 2 on insulin no acute need for dialysis today next dialysis planned for will continue Vancomycin 1g IV with HD for MRSA bacteremia f/u cultures w/o growth will discuss with ID length of Abx treatment to be continued at dialysis Thank you Miguel Jansen DO
[2019-04-21] MEDS ORDERED: VANCOMYCIN 1 GM in D5W (PRE-DOCKED) 1,000 MG/250 ML IVPB ONE (13:43)
--- NOTE | 2019-04-21 14:04 | PN ---
Progress Note, Physician History of Present Illness: POD#11 post right BKA, POD#3 revision and wound closure. Pain adequately controlled. Plan for d/c to [facility]. - Current Medication List Current Medications: Active Medications Albuterol Sulfate (Ventolin 0.083% Nebulizer Soln -) 1 amp NEB Q4H PRN PRN Reason: SHORT OF BREATH/WHEEZING Amino Acids (Prosource No Carb Liquid Pkt) 30 ml PO BID@0800,1730 [facility] Last Admin: 04/21/19 09:37 Dose: 30 ml Calcium Acetate (Phoslo -) 1,334 mg PO TIDCM [facility] Last Admin: 04/21/19 12:42 Dose: 1,334 mg Doxazosin Mesylate (Cardura -) 2 mg PO [facility] Last Admin: 04/20/19 21:45 Dose: 2 mg Fluticasone Propionate (Flonase -) 1 spray NS DAILY [facility] Last Admin: 04/21/19 09:42 Dose: 1 spray Gabapentin (Neurontin -) 300 mg PO TID [facility] Last Admin: 04/21/19 06:30 Dose: 300 mg Insulin Aspart (Novolog Vial Sliding Scale -) 1 vial SQ [facility]; Protocol Last Admin: 04/20/19 21:46 Dose: Not Given Insulin Aspart (Novolog Vial Sliding Scale -) 1 vial SQ TIDAC [facility]; Protocol Last Admin: 04/21/19 12:04 Dose: Not Given Insulin Detemir (Levemir Vial) 3 units SQ [facility] Last Admin: 04/20/19 21:45 Dose: 3 units Lidocaine (Lidoderm Patch -) 1 patch TP DAILY [facility] Last Admin: 04/21/19 09:38 Dose: 1 patch Melatonin (Melatonin) 10 mg PO [facility] Last Admin: 04/20/19 21:45 Dose: 10 mg Methadone HCl (Dolophine -) 5 mg PO TID [facility] Last Admin: 04/21/19 06:29 Dose: 5 mg Miscellaneous (Lidoderm Patch Removal) 1 each MC DAILY@2200 [facility] Last Admin: 04/20/19 21:45 Dose: 1 each Morphine Sulfate (Morphine Sulfate) 2 mg IVPUSH Q6H PRN PRN Reason: PAIN LEVEL 6-10 Last Admin: 04/21/19 06:30 Dose: 2 mg Multivit/Ca Carb/B Cmplx/FA/Prenat (Nephro-Guilherme -) 1 tablet PO DAILY [facility] Last Admin: 04/21/19 09:38 Dose: 1 tablet Nifedipine (Procardia Xl -) 60 mg PO DAILY [facility] Last Admin: 04/21/19 09:50 Dose: Not Given Ondansetron HCl (Zofran Injection) 4 mg IVPUSH Q6H PRN PRN Reason: NAUSEA AND/OR VOMITING Petrolatum (Vaseline) 1 applic TP DAILY PRN PRN Reason: DRY SKIN Trazodone HCl 400 mg/ (Trazodone HCl 50 mg) 450 mg PO HS [facility] Last Admin: 04/20/19 21:45 Dose: 450 mg Vancomycin HCl (Vancomycin Oral Solution) 125 mg PO Q6HPO [facility] Last Admin: 04/21/19 12:42 Dose: 125 mg - Objective Vital Signs: Vital Signs Temperature 98.0 F 04/21/19 06:30 Pulse Rate 67 04/21/19 06:30 Respiratory Rate 17 04/21/19 06:30 Blood Pressure 140/72 04/21/19 06:30 O2 Sat by Pulse Oximetry (%) 96 04/20/19 21:00 Labs: CBC, BMP 04/20/19 06:35 04/21/19 06:45 INR, PTT INR 1.15 (0.83-1.09) H 04/16/19 07:45 Problem List - Problems (1) Cellulitis of right foot Code(s): L03.115 - CELLULITIS OF RIGHT LOWER LIMB (2) ESRD (end stage renal disease) on dialysis Code(s): N18.6 - END STAGE RENAL DISEASE; Z99.2 - DEPENDENCE ON RENAL DIALYSIS (3) Uncontrolled diabetes mellitus Code(s): E11.65 - TYPE 2 DIABETES MELLITUS WITH HYPERGLYCEMIA Qualifiers: Diabetes mellitus type: type 2 Glycemic state: with hyperglycemia Qualified Code(s): E11.65 - Type 2 diabetes mellitus with hyperglycemia (4) Anemia Code(s): D64.9 - ANEMIA, UNSPECIFIED Qualifiers: Anemia type: due to chronic kidney disease Chronic kidney disease stage: on chronic dialysis Qualified Code(s): N18.6 - End stage renal disease; D63.1 - Anemia in chronic kidney disease; Z99.2 - Dependence on renal dialysis (5) Foot infection Code(s): L08.9 - LOCAL INFECTION OF THE SKIN AND SUBCUTANEOUS TISSUE, UNSP (6) Bacteremia due to Gram-positive bacteria Code(s): R78.81 - BACTEREMIA (7) ESRD (end stage renal disease) Code(s): N18.6 - END STAGE RENAL DISEASE (8) Peripheral vascular disease due to secondary diabetes Code(s): E13.51 - OTH DIABETES W DIABETIC PERIPHERAL ANGIOPATHY W/O GANGRENE (9) Diabetic neuropathy Code(s): E11.40 - TYPE 2 DIABETES MELLITUS WITH DIABETIC NEUROPATHY, UNSP Qualifiers: Diabetes mellitus type: type 2 Diabetes mellitus complication detail: diabetic polyneuropathy Qualified Code(s): E11.42 - Type 2 diabetes mellitus with diabetic polyneuropathy (10) Osteomyelitis Code(s): M86.9 - OSTEOMYELITIS, UNSPECIFIED Qualifiers: Osteomyelitis type: other chronic Osteomyelitis location: foot (11) Type 2 diabetes mellitus with foot ulcer Code(s): E11.621 - TYPE 2 DIABETES MELLITUS WITH FOOT ULCER; L97.509 - NON- PRESSURE CHRONIC ULCER OTH PRT UNSP FOOT W UNSP SEVERITY Qualifiers: Diabetes mellitus terminal carman insulin use: with terminal carman use Qualified Code( s): E11.621 - Type 2 diabetes mellitus with foot ulcer; L97.509 - Non-pressure chronic ulcer of other part of unspecified foot with unspecified severity; Z79.4 - FPC (current) use of insulin (12) Below-knee amputation Code(s): S88.119A - COMPLETE TRAUM AMP AT LEV BETW KN & ANKL, UNSP LOW LEG, INIT Assessment/Plan 10/15/2018 Echo: Mod cLVH with normal LV and RV size and fxn, tr-mild MR 09/30/2017 CHAKA: Normal biventricular size and fxn, mild AR, KS, MR, no SIS thrombus or vegetations 1. MRSA bacteremia from osteomyelitis of R foot s/p RLE BKA POD#4 BKA revision and wound closure 2. ESRD on HD TThS, suspected diabetic nephropathy 3. Moderate pericardial effusion referable to uremic pericarditis since resolved 4. Insulin-dependent Type 2 DM c/b neuropathy uncontrolled, A1C 10.8 5. HTN/HCVD 6. PAD 7. Anemia of chronic kidney disease 8. H/o Right IJ/SCV thrombus probably catheter related 9. PAD s/p left BKA 10. History of substance abuse currently on Methadone PLAN: 1. Vanco at HD course per ID, f/u cultures confirms bacteremia clearance, wound care, HBO2. 2. Continue Cardura 4 qd, Procardia XL 90 qd 3. Would defer CHAKA unless persistently bacteremic and we are looking for additional source besides established right foot osteomyeleitis, 04/09 bld cx document clearance 4. Monitor Hgb and transfuse as needed to maintain Hgb>7.0, continue high dose ADRIAN 5. TThS HD per renal 6. D/c to [facility]
[2019-04-21 14:39] VITALS: BP 134/72; PULSE 63; TEMP 98.2
--- NOTE | 2019-04-21 15:34 | PN ---
Progress Note, Physician History of Present Illness: stable no new issues - Current Medication List Current Medications: Active Medications Albuterol Sulfate (Ventolin 0.083% Nebulizer Soln -) 1 amp NEB Q4H PRN PRN Reason: SHORT OF BREATH/WHEEZING Amino Acids (Prosource No Carb Liquid Pkt) 30 ml PO BID@0800,1730 REPLACED BY [facility] Last Admin: 04/21/19 09:37 Dose: 30 ml Calcium Acetate (Phoslo -) 1,334 mg PO TIDCM [facility]PL[facility] BY [facility] Last Admin: 04/21/19 12:42 Dose: 1,334 mg Doxazosin Mesylate (Cardura -) 2 mg PO HS [facility]PL[facility] BY [facility] Last Admin: 04/20/19 21:45 Dose: 2 mg Fluticasone Propionate (Flonase -) 1 spray NS DAILY [facility] Last Admin: 04/21/19 09:42 Dose: 1 spray Gabapentin (Neurontin -) 300 mg PO TID [facility] Last Admin: 04/21/19 14:14 Dose: 300 mg Insulin Aspart (Novolog Vial Sliding Scale -) 1 vial SQ [facility]; Protocol Last Admin: 04/20/19 21:46 Dose: Not Given Insulin Aspart (Novolog Vial Sliding Scale -) 1 vial SQ TIDAC [facility]PL[facility]ED [facility]; Protocol Last Admin: 04/21/19 12:04 Dose: Not Given Insulin Detemir (Levemir Vial) 3 units SQ [facility] Last Admin: 04/20/19 21:45 Dose: 3 units Lidocaine (Lidoderm Patch -) 1 patch TP DAILY [facility] Last Admin: 04/21/19 09:38 Dose: 1 patch Melatonin (Melatonin) 10 mg PO [facility] Last Admin: 04/20/19 21:45 Dose: 10 mg Methadone HCl (Dolophine -) 5 mg PO TID [facility] Last Admin: 04/21/19 14:14 Dose: 5 mg Miscellaneous (Lidoderm Patch Removal) 1 each MC DAILY@2200 REPLACED [facility] Last Admin: 04/20/19 21:45 Dose: 1 each Morphine Sulfate (Morphine Sulfate) 2 mg IVPUSH Q6H PRN PRN Reason: PAIN LEVEL 6-10 Last Admin: 04/21/19 06:30 Dose: 2 mg Multivit/Ca Carb/B Cmplx/FA/Prenat (Nephro-Guilherme -) 1 tablet PO DAILY [facility] Last Admin: 12/24/19 09:38 Dose: 1 tablet Nifedipine (Procardia Xl -) 60 mg PO DAILY [facility] Last Admin: 04/21/19 09:50 Dose: Not Given Ondansetron HCl (Zofran Injection) 4 mg IVPUSH Q6H PRN PRN Reason: NAUSEA AND/OR VOMITING Petrolatum (Vaseline) 1 applic TP DAILY PRN PRN Reason: DRY SKIN Trazodone HCl 400 mg/ (Trazodone HCl 50 mg) 450 mg PO HS [facility]PLACED BY [facility] Last Admin: 04/20/19 21:45 Dose: 450 mg Vancomycin HCl (Vancomycin Oral Solution) 125 mg PO Q6HPO REPLACED BY [facility] Last Admin: 04/21/19 12:42 Dose: 125 mg - Objective Vital Signs: Vital Signs Temperature 98.2 F 04/21/19 10:00 Pulse Rate 63 04/21/19 10:00 Respiratory Rate 18 04/21/19 10:00 Blood Pressure 134/72 04/21/19 10:00 O2 Sat by Pulse Oximetry (%) 96 04/21/19 09:00 Constitutional: Yes: Calm, Mild Distress Cardiovascular: Yes: Regular Rate and Rhythm Respiratory: Yes: Regular, CTA Bilaterally Gastrointestinal: Yes: Normal Bowel Sounds, Soft Musculoskeletal: Yes: WNL Extremities: Yes: Other Wound/Incision: Yes: Dressing Dry and Intact Neurological: Yes: Alert, Oriented Psychiatric: Yes: Alert, Oriented Labs: CBC, BMP 04/20/19 06:35 04/21/19 06:45 INR, PTT INR 1.15 (0.83-1.09) H 04/16/19 07:45 Assessment/Plan 61 year old male with a past medical history of DM, HTN, ESRD on dialysis (TThS) , left BKA, diabetic neuropathy, hx of MRSA bacteremia, presenting for a sepsis from likely osteomyelitis of R foot. sepsis osteo r foot esrd htn dm gas gangrene mrsa bacteremia Problem List - Problems (1) Diabetes Code(s): E11.9 - TYPE 2 DIABETES MELLITUS WITHOUT COMPLICATIONS (2) Diastolic CHF Code(s): I50.30 - UNSPECIFIED DIASTOLIC (CONGESTIVE) HEART FAILURE (3) ESRD (end stage renal disease) on dialysis Code(s): N18.6 - END STAGE RENAL DISEASE; Z99.2 - DEPENDENCE ON RENAL DIALYSIS (4) Gangrene of right foot Code(s): I96 - GANGRENE, NOT ELSEWHERE CLASSIFIED (5) HTN (hypertension) Code(s): I10 - ESSENTIAL (PRIMARY) HYPERTENSION (6) Status post amputation of right foot Code(s): Z89.431 - ACQUIRED ABSENCE OF RIGHT FOOT (7) Amputation, below knee, unilateral, traumatic Code(s): S88.119A - COMPLETE TRAUM AMP AT LEV BETW KN & ANKL, UNSP LOW LEG, INIT Qualifiers: Encounter type: subsequent encounter Laterality: left Qualified Code(s): S88.112D - Complete traumatic amputation at level between knee and ankle, left lower leg, subsequent encounter (8) Bacteremia due to Gram-positive bacteria Code(s): R78.81 - BACTEREMIA (9) Hemodialysis access, AV graft Code(s): Z99.2 - DEPENDENCE ON RENAL DIALYSIS (10) Osteomyelitis of right foot Code(s): M86.9 - OSTEOMYELITIS, UNSPECIFIED Qualifiers: (11) Peripheral vascular disease due to secondary diabetes Code(s): E13.51 - OTH DIABETES W DIABETIC PERIPHERAL ANGIOPATHY W/O GANGRENE (12) Sepsis Code(s): A41.9 - SEPSIS, UNSPECIFIED ORGANISM Qualifiers: Sepsis type: methicillin susceptible Staphylococcus aureus Qualified Code(s ): A41.01 - Sepsis due to Methicillin susceptible Staphylococcus aureus (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
--- NOTE | 2019-04-21 16:14 | PN ---
Teaching Attending Note Name of Resident: Srini Adame ATTENDING PHYSICIAN STATEMENT I saw and evaluated the patient. I reviewed the resident's note and discussed the case with the resident. I agree with the resident's findings and plan as documented with exceptions below. SUBJECTIVE: Patient seen and examined. no complaints. working with PT. OBJECTIVE: Vital Signs Period Temp Pulse Resp BP Sys/Gutierrez Pulse Ox Last 24 Hr 97.9 F-98.2 F 63-79 17-18 134-140/69-72 96-96 Intake & Output 04/18/19 04/19/19 04/20/19 04/21/19 23:59 23:59 23:59 23:59 Intake Total 970 1420 1620 560 Output Total 100 2400 Balance 870 1420 -780 560 Weight 179 lb 179 lb 4 oz 179 lb 8 oz 179 lb General: lying in bed, no acute distress chest: no rales or wheezing Abdomen:soft, NT Extremities: bilateral BKA, ASSESSMENT AND PLAN:
--- NOTE | 2019-04-21 18:48 | DS ---
Physical Exam: SUBJECTIVE: Patient seen and examined at the bedside. Patient noted that his pain was better controlled and that he was feeling better and ready for discharge to rehab. Denied cp, sob, abd pain, n/v/c/d, headaches, dizziness, lightheadedness, fevers, chills. OBJECTIVE: Vital Signs Period Temp Pulse Resp BP Sys/Gutierrez Pulse Ox Last 24 Hr 97.9 F-98.2 F 63-79 17-18 134-140/69-72 96-96 PHYSICAL EXAM GENERAL: The patient is awake, alert, and fully oriented, in no acute distress. HEAD: Normal with no signs of trauma. EYES: PERRL, extraocular movements intact, sclera anicteric, conjunctiva clear. ENT: Oropharynx clear without exudates, moist mucous membranes. NECK: Trachea midline, full range of motion, supple. LUNGS: Breath sounds equal, clear to auscultation bilaterally, no wheezes, no crackles, no accessory muscle use. HEART: Regular rate and rhythm, S1, S2 without murmur, rubs. ABDOMEN: Soft, nontender, nondistended, normoactive bowel sounds, no guarding, no rebound, no masses. EXTREMITIES: Amputation L BKA and R BKA. Dressings dry on R side and in immobilizer. NEUROLOGICAL: Cranial nerves II through XII grossly intact. 5/5 muscle strength upper and lower extremities, bilaterally. L and R BKA. PSYCH: Normal mood and affect. LABS Laboratory Results - last 24 hr 04/20/19 04/21/19 04/21/19 21:42 06:28 06:45 Sodium 141 Potassium 4.0 Chloride 102 Carbon Dioxide 34 H Anion Gap 5 L BUN 31.4 H Creatinine 3.8 H Est GFR (CKD-EPI)AfAm 18.40 Est GFR (CKD-EPI)NonAf 15.88 POC Glucometer 165 112 Random Glucose 103 Calcium 7.8 L Phosphorus 3.3 Magnesium 2.3 04/21/19 12:02 Sodium Potassium Chloride Carbon Dioxide Anion Gap BUN Creatinine Est GFR (CKD-EPI)AfAm Est GFR (CKD-EPI)NonAf POC Glucometer 136 Random Glucose Calcium Phosphorus Magnesium HOSPITAL COURSE: Luciano Judge is a 61 year old male with a past medical history of DM, HTN, ESRD on dialysis ([facility]), left BKA, diabetic neuropathy, hx of MRSA bacteremia presenting for sepsis from likely osteomyelitis of R foot. Foot x-ray noted emphysematous changes, deformity, lucency, destructive changes of the distal head of third metatarsal, metatarsal head, base of R third proximal phalynx consistent with osteomyelitis. ID was consulted and continued the patient on Vancomycin after blood cultures came back for MRSA. Zosyn was discontinued. A total of 2 weeks of vancomycin were administered to the patient that were renally dosed with HD. Patient underwent TMA and subsequent guillotine and formal BKA closure. Pathology results noted that bone margins clear after BKA, viable skin and soft tissue margins, portion of leg with abscesses. Wound care noted to continue Xeroform dressings, YASMIN wrap, and to follow up with wound care for removal of saravanan in 2 weeks. Patient received dialysis while admitted and seen by nephrology. While admitted, patient had developed c diff and was antigen positive and toxin negative. Started on oral vanco and to complete course in the SNF. Diabetes medications were amended as per endocrinology and patient started on Levemir 3 units qhs and on a sliding scale of insulin. Hypertensive medications were changed while patient was admitted due to hypotensive episodes. Pain medications were altered while patient was admitted to assist with pain control. Was advised to continue taking all medications as prescribed and to follow up with his PCP, instrument repairer steam plant, wound care doctor, asset protection professional, infectious disease, and photographic restorer. Patient was advised of the plan, was in agreement, and reiterated the plan. Patient was discharged in stable medical condition. Date of Admission:04/06/19 Date of Discharge: 04/21/19 Minutes to complete discharge: 35 Discharge Summary Problems reviewed: Yes Reason For Visit: FOOT INFECTION Condition: Stable - Instructions Diet, Activity, Other Instructions: You were admitted for an infection in your foot that had spread to your blood. You were started on antibiotics that you will complete outpatient in the rehab facility. You had an amputation of your leg below the knee and are to follow up with vascular surgery for continued management your wounds. You had very high blood sugars when you are admitted and were restarted on your diabetes medications regimen. You had an echocardiogram (ultrasound of the heart) which showed some dysfunction of the heart and valve issues for which you should follow up with a photographic restorer (heart doctor). MEDICATIONS START taking Levemir 3 units at night. Hold off on taking the Levemir at night if your blood sugar is less than 140 or you are not eating. Follow up with the asset protection professional to determine if you need further adjustment of your diabetes medications. Continue taking short acting Novolog Insulin as needed before meals based on pre -meal blood sugar readings. BGM 101-150 0 units, 151-200 3 units, 201-150 4 units, 251-300 5 units, 301-350 6 units, 351-400 7 units, >400 7 units Continue taking short acting Novolog Insulin as needed at night based on nightime blood sugar readings. BGM 101-150 0 units, 151-200 0 units, 201-150 2 units, 251-300 3 units, 301-350 4 units, 351-400 5 units, >400 call MD START taking Nephro-Guilherme 1 tablet daily. START taking gabapentin 300mg three times a day. CHANGE YOUR DOSE of Nifedipine to 60mg daily. STOP TAKING 90mg doses. CHANGE YOUR DOSE of doxazosin to 2mg at night. STOP TAKING 4mg doses. CONTINUE taking oral vancomycin 125mg every 6 hours for an additional 7 days. Continue taking your other home medications as prescribed. REFERRALS Please follow up with your primary care provider, Dr. Juve Riggs, within 1 week. Please follow up with your instrument repairer steam plant, Inderjit Alas, within 1 week. Please follow up with your vascular surgeon, Dr. Al Daly, within 2 weeks. Please follow up with your asset protection professional, Dr. Compa Benito, within 1 week. Please follow up with the infectious disease doctor, Dr. Nimco Brown, within 1 week. Please follow up with the photographic restorer, Dr. Natan Arguello, within 1 week. SPECIAL INSTRUCTIONS Apply Xeroform dressing to the right leg. Continue wrapping the leg in YASMIN bandage and change daily. Keep the right leg in the knee immobilizer. You will have the saravanan removed in 3 weeks at the wound care center. You have an [facility] on May [address] Daly. Please continue getting dialysis on your normal schedule. Follow up with the infectious disease specialist for bloodwork to determine that your infection has been cleared. If you have any symptoms of bleeding from the surgical site, fevers, inability to eat, severely worsening pain, chest pain, shortness of breath, or any other general feelings of unwellness, please call 911 or go to your nearest emergency room. Referrals: Nimco Brown MD [Staff Physician] - 1 Week Juve Riggs MD [Primary Care Provider] - 1 Week Al Daly DO [Staff Physician] - 1 Week Miguel Jansen MD [Staff Physician] - 1 Week Natan Jones MD [Staff Physician] - 1 Week Compa Benito MD [Staff Physician] - 1 Week Disposition: HALFWAY FACILITY - Home Medications Comprehensive Discharge Medication List: Ambulatory Orders Albuterol 0.083% Nebulizer Coretta [Ventolin 0.083% Nebulizer Soln -] 1 amp NEB Q4H PRN #120 amp 08/23/17 Fluticasone Prop 0.05% Nasal [Flonase -] 1 - 2 spray NS DAILY #1 spray.pump Lidocaine 5% Patch [Lidoderm -] 1 patch TP DAILY patch 10/06/17 Lidocaine Patch Removal [Lidoderm Patch Removal] 1 each MC DAILY@2200 each 02/13 traZODone HCL [Desyrel -] 450 mg PO HS 04/07/19 Methadone [Dolophine -] 2.5 mg PO TID 04/16/19 Bismuth Tribromoph/Petrolatum [Xeroform Petrolatum Dress] 1 each TP DAILY #10 bandage 04/20/19 Doxazosin Mesylate [Cardura -] 2 mg PO HS #30 tablet 04/20/19 Gabapentin [Neurontin -] 300 mg PO TID #90 capsule 04/20/19 Insulin (Levemir) [Levemir Vial] 3 units SQ HS #1 vial 04/20/19 Insulin Sliding Scale [Novolog Vial Sliding Scale -] 1 vial SQ HS #1 vial Insulin Sliding Scale [Novolog Vial Sliding Scale -] 1 vial SQ TIDAC #1 vial Nifedipine ER [Procardia XL -] 60 mg PO DAILY #30 tab.er.24 04/20/19 Vancomycin HCl 125 mg PO Q6H #28 capsule 04/20/19 Vitamin B Comp W-C [Nephro-Guilherme -] 1 tablet PO DAILY #30 tablet 04/20/19 Problem List - Problems (1) Acute on chronic diastolic heart failure Code(s): I50.33 - ACUTE ON CHRONIC DIASTOLIC (CONGESTIVE) HEART FAILURE (2) Anemia Code(s): D64.9 - ANEMIA, UNSPECIFIED Qualifiers: Anemia type: due to chronic kidney disease Chronic kidney disease stage: on chronic dialysis Qualified Code(s): N18.6 - End stage renal disease; D63.1 - Anemia in chronic kidney disease; Z99.2 - Dependence on renal dialysis (3) Below-knee amputation Code(s): S88.119A - COMPLETE TRAUM AMP AT LEV BETW KN & ANKL, UNSP LOW LEG, INIT (4) COPD with emphysema Code(s): J43.9 - EMPHYSEMA, UNSPECIFIED (5) Depression Code(s): F32.9 - MAJOR DEPRESSIVE DISORDER, SINGLE EPISODE, UNSPECIFIED (6) Diabetes mellitus Code(s): E11.9 - TYPE 2 DIABETES MELLITUS WITHOUT COMPLICATIONS Qualifiers: Diabetes mellitus type: type 2 Diabetes mellitus intermediate manager insulin use: without alf use Diabetes mellitus complication status: without complication Qualified Code(s): E11.9 - Type 2 diabetes mellitus without complications (7) Diabetic neuropathy Code(s): E11.40 - TYPE 2 DIABETES MELLITUS WITH DIABETIC NEUROPATHY, UNSP Qualifiers: Diabetes mellitus type: type 2 Diabetes mellitus complication detail: diabetic polyneuropathy Qualified Code(s): E11.42 - Type 2 diabetes mellitus with diabetic polyneuropathy (8) Dialysis patient Code(s): Z99.2 - DEPENDENCE ON RENAL DIALYSIS (9) ESRD (end stage renal disease) Code(s): N18.6 - END STAGE RENAL DISEASE (10) Foot infection Code(s): L08.9 - LOCAL INFECTION OF THE SKIN AND SUBCUTANEOUS TISSUE, UNSP (11) GERD (gastroesophageal reflux disease) Code(s): K21.9 - GASTRO-ESOPHAGEAL REFLUX DISEASE WITHOUT ESOPHAGITIS (12) HTN (hypertension) Code(s): I10 - ESSENTIAL (PRIMARY) HYPERTENSION Qualifiers: Hypertension type: essential hypertension Qualified Code(s): I10 - Essential (primary) hypertension (13) Hemodialysis access, AV graft Code(s): Z99.2 - DEPENDENCE ON RENAL DIALYSIS (14) Osteomyelitis Code(s): M86.9 - OSTEOMYELITIS, UNSPECIFIED Qualifiers: Osteomyelitis type: other chronic Osteomyelitis location: foot (15) PTSD (post-traumatic stress disorder) Code(s): F43.10 - POST-TRAUMATIC STRESS DISORDER, UNSPECIFIED (16) Peripheral vascular disease due to secondary diabetes Code(s): E13.51 - OTH DIABETES W DIABETIC PERIPHERAL ANGIOPATHY W/O GANGRENE (17) Type 2 diabetes mellitus with foot ulcer Code(s): E11.621 - TYPE 2 DIABETES MELLITUS WITH FOOT ULCER; L97.509 - NON- PRESSURE CHRONIC ULCER OTH PRT UNSP FOOT W UNSP SEVERITY Qualifiers: Diabetes mellitus alf insulin use: with intermediate manager use Qualified Code( s): E11.621 - Type 2 diabetes mellitus with foot ulcer; L97.509 - Non-pressure chronic ulcer of other part of unspecified foot with unspecified severity; Z79.4 - termite control servicer (current) use of insulin (18) FROYLAN (acute kidney injury) Code(s): N17.9 - ACUTE KIDNEY FAILURE, UNSPECIFIED (19) Bacteremia due to Gram-positive bacteria Code(s): R78.81 - BACTEREMIA (20) Gangrene of right foot Code(s): I96 - GANGRENE, NOT ELSEWHERE CLASSIFIED (21) Osteomyelitis of right foot Code(s): M86.9 - OSTEOMYELITIS, UNSPECIFIED Qualifiers: (22) Sepsis Code(s): A41.9 - SEPSIS, UNSPECIFIED ORGANISM Qualifiers: Sepsis type: methicillin susceptible Staphylococcus aureus Qualified Code(s ): A41.01 - Sepsis due to Methicillin susceptible Staphylococcus aureus (23) Status post amputation of right foot Code(s): Z89.431 - ACQUIRED ABSENCE OF RIGHT FOOT This patient is new to me today: No Emergency Visit: Yes ED Registration Date: 04/06/19 Care time: The patient presented to the Emergency Department on the above date and was hospitalized for further evaluation of their emergent condition. Critical Care patient: No - Discharge Referral [facility]erred to [facility] Med P.C.: No
--- NOTE | 2019-04-23 16:11 | PATH ---
Surgical Pathology Report Patient Name: MARIAJOSE MALAVE Med. Rec. #: [id number] /Age/Gender: 1955 (Age: 63) / M Account: [id number] Location: [address] [place] [address]/[facility] Taken: 04/17/2019 Received: 04/20/2019 Reported: 04/23/2019 Physicians: Al Daly Specimen(s) Received RIGHT BELOW KNEE AMPUTATION Clinical History Gangrene right Final Diagnosis LOWER LEG, RIGHT, BELOW THE KNEE AMPUTATION: PORTION OF PREVIOUSLY AMPUTATED LOWER LEG WITH ACUTE AND CHRONIC INFLAMMATION, ULCERATION, AND REACTIVE CHANGES. UNDERLYING BONE WITH MILD ACUTE OSTEOMYELITIS. SURGICAL MARGINS ARE VIABLE; BONE MARGIN NEGATIVE FOR OSTEOMYELITIS. MODERATE TO SEVERE ATHEROSCLEROSIS. Electronically Signed Cinthia Reeder M.D. Gross Description Received fresh labeled "right below the knee amputation," is a 16.5 cm in length below the knee amputation. The patient has had a previous amputation as there is no foot present. The previous amputation site displays an open wound with exposed bone. There are 2 separately received portions of bone measuring 4.0 x 3.0 x 2.2 cm and 3.5 x 1.7 x 1.5 cm, consistent with true tibia and fibula margins. Also separately received within the same container is a 9.0 x 7.5 x 2.0 cm aggregate of soft tissue fragments. Sectioning of the vasculature reveals focal, segmental atherosclerosis. Field Appraiser sections are submitted in 8 cassettes as follows: 1-bone from previous amputation site, following decalcification; 2-skin and soft tissue from previous amputation site; 3-skin and soft tissue margin; 4-tibial bone margin, following decalcification; 5-fibula bone margin, following decalcification; 6-anterior tibial artery; 7-posterior tibial artery; 8-separately received soft tissue fragments. 04/20/201904/20/2019
--- NOTE | 2019-04-29 19:54 | OP ---
DATE OF OPERATION: 04/17/2019 PREOPERATIVE DIAGNOSIS: Right foot gangrene. POSTOPERATIVE DIAGNOSIS: Right foot gangrene. PROCEDURE: Right below-knee amputation. SURGEON: Al Castillo DO ANESTHESIA: General. BLOOD LOSS: 150 mL INDICATION: The patient is a 63-year-old male who last week had a guillotine amputation of his right leg due to sepsis in his leg, due to gangrene. He now comes back for a formal below-knee amputation for closure of his stump. The patient was consented for the procedure, understanding all risks, benefits and alternatives. DESCRIPTION OF PROCEDURE: The patient was taken to the operating room. Once in the operating room, he was placed on the operating room table in a supine manner. The area of the right leg was then prepped and draped in a sterile surgical manner. General anesthesia was administered to the patient. We then went four fingerbreadths below the tibial tuberosity and alma rosa a stepoff incision to create the flap. We then used a no. 15 blade and were able to take that incision along our incision that was drawn on and we were able to go circumferentially. We then used Bovie electrocautery and we were able to get down through all the subcutaneous tissue. We were then able to take down all the muscular attachments around the tibia and the fibula. We took great care and were able to dissect out the anterior tibial artery and the vein and those were clamped and suture ligated using 0-silk. We then went medially under the soleus muscle and were able to dissect out our peroneal artery. The peroneal artery and vein were clamped and suture ligated using 0-silk for control. We then dissected out our fibula and our tibia. Once that was done, we used our bone saw and we were able to transect the tibia and the fibula. All muscular attachments were then taken down using Bovie electrocautery. The leg was then removed and sent down to pathology. The flap was then well irrigated. Once the flap was well irrigated, we used 2-0 silk and 2-0 Vicryl and we were able to approximate the fascia. Once the fascia was approximated, the skin was closed with skin saravanan. Xeroform was placed, 4 x 4s, Kerlix and Coban were placed. The patient's leg was then placed in a knee immobilizer. Patient tolerated the procedure with no complications and was transferred to the PACU in stable condition. AL CASTILLO DO [id number]
--- NOTE | 2019-04-29 20:04 | OP ---
DATE OF OPERATION: 04/10/2019 PREOPERATIVE DIAGNOSIS: Gangrene, right lower extremity. POSTOPERATIVE DIAGNOSIS: Gangrene, right lower extremity. PROCEDURE: Right guillotine amputation. SURGEON: Al Castillo MD ANESTHESIA: General. BLOOD LOSS: 100 mL. INDICATIONS: The patient is a 63-year-old male who comes in with a week history of right lower extremity gangrene. The patient has been on IV antibiotics since admission but his white blood cell count is now going up and he has tenderness now going up above the ankle with extensive drainage and pus coming out of it. At this point it was decided that he would need an amputation in the form of a guillotine amputation to let all the infection drain out of his leg to prevent septic shock. The patient was consented for the procedure, explaining all risks, benefits and alternatives. DESCRIPTION OF PROCEDURE: He was then taken to the operating room. Once in the operating room, laid on the operating room table in a supine manner. The area of the right lower extremity was prepped and draped in a sterile surgical manner. We then went ahead 4 fingerbreadths above the ankle and we were then able to use a number 15 blade and we were able to make an incision circumferentially, Bovie electrocautery was used to control hemostasis. We were able to take down all the muscles using Bovie electrocautery. Once we got down to the tibia we were able to use our saw and retracted to the tibia. We then dissected out the fibula and retracted to the fibula. Once that was done all attachments were then removed using Bovie electrocautery and the foot was removed along with the lower leg. Bovie electrocautery was used to control all hemostasis. We had enough space to make our flap to do a formal below-knee amputation in the future. At this point the wound was well irrigated. We went ahead and placed some Xeroform on the wound, 4 x 4s, Kerlix, Coban and the leg was placed in the knee immobilizer. The patient did well. Total blood loss 100 mL. The patient was brought to the PACU in stable condition. AL CASTILLO DO [id number]
== END 2019-04-21 15:57 | DRG 853 ==
LOC: JER 16:11 → JERBED 19:02 → J5S 04-07 15:35 → J6S 04-09 15:49 → JICU 04-10 13:20 → J8W 04-13 00:46 → J6S 04-13 19:54
PROVIDERS: ADMIT Internal Medicine; ATTEND Hospitalist
PROC: 0Y6M0Z0 Detachment at Right Foot, Complete, Open Approach (ICD-10-PCS; principal; 2019-04-07 16:15)
PROC: 0JBQ0ZZ Excision of Right Foot Subcutaneous Tissue and Fascia, Open Approach (ICD-10-PCS; 2019-04-07 16:15)
PROC: 0Y9M0ZZ Drainage of Right Foot, Open Approach (ICD-10-PCS; 2019-04-09)
PROC: 0Y6H0Z1 Detachment at Right Lower Leg, High, Open Approach (ICD-10-PCS; 2019-04-10)
PROC: 30233N1 Transfusion of Nonautologous Red Blood Cells into Peripheral Vein, Percutaneous Approach (ICD-10-PCS; 2019-04-10)
PROC: 0Y6H0Z1 Detachment at Right Lower Leg, High, Open Approach (ICD-10-PCS; 2019-04-17)
PROC: 5A1D70Z Performance of Urinary Filtration, Intermittent, Less than 6 Hours Per Day (ICD-10-PCS; 2019-04-20)
DX: A41.02 Sepsis due to Methicillin resistant Staphylococcus aureus (principal); M72.6 Necrotizing fasciitis; N18.6 End stage renal disease; E11.52 Type 2 diabetes mellitus with diabetic peripheral angiopathy with gangrene; L03.115 Cellulitis of right lower limb; I50.32 Chronic diastolic (congestive) heart failure; M86.9 Osteomyelitis, unspecified; A04.72 Enterocolitis due to Clostridium difficile, not specified as recurrent; E87.1 Hypo-osmolality and hyponatremia; E87.2 Acidosis; I13.11 Hypertensive heart and chronic kidney disease without heart failure, with stage 5 chronic kidney disease, or end stage renal disease; R64 Cachexia; E11.69 Type 2 diabetes mellitus with other specified complication; E11.621 Type 2 diabetes mellitus with foot ulcer; E11.65 Type 2 diabetes mellitus with hyperglycemia; J43.9 Emphysema, unspecified; F43.10 Post-traumatic stress disorder, unspecified; E11.42 Type 2 diabetes mellitus with diabetic polyneuropathy; D63.1 Anemia in chronic kidney disease; D72.829 Elevated white blood cell count, unspecified; E11.22 Type 2 diabetes mellitus with diabetic chronic kidney disease; Z99.2 Dependence on renal dialysis; Z68.21 Body mass index [BMI] 21.0-21.9, adult
CPT/HCPCS: 36415; 36430; 36511; 71045-TC-FY; 73590-TC-RT-FY; 73610-TC-RT-FY; 73630-TC-RT-FY; 80048; 80053; 82550; 82565; 82607; 82728; 82746; 82803; 82947; 82962; 83036; 83540; 83550; 83605; 83735; 84100; 84484; 84520; 85025; 85027; 85610; 85651; 85730; 86140; 86803; 86850; 86900; 86901; 86922; 87040; 87070; 87075; 87077; 87186; 87205; 87324; 87340; 87449; 88304-TC; 88305-TC; 88307-TC; 88311-TC; 93005; 93010; 93306-TC; 94760; 97162-GP; 99284-25; G0480; J0131; J0885; J1644; J7030; P9038; P9058

== ENCOUNTER 2019-05-09 07:15 | Inpatient (IN) | payer OTHER ==
--- NOTE | 2019-05-09 07:39 | PDOC ---
Attending Attestation - Resident Resident Name: Sera Mccray - HPI HPI: 05/09/19 08:53 Pt presents to the ED complaining of shortness of breath since Saturday. Sent in from HD for Hgb of 5. Last HD was saturday. Complains of orthopnea and slight swelling in his R arm and leg. Denies fever or cough. Slightly hypoxic on arrival to the ED, denies prior history of COPD or asthma. Pt is concerned for CO poisioning because there was a car parked outside his window last night. - Physicial Exam PE: 05/09/19 09:05 Agree with resident exam. Patient is alert and in NAD. Cv: rrr no m/r/g Pulm: CTA b/l - Medical Decision Making 05/09/19 09:09 Pt presents to the ED complaining of shortness of breath, sent in by Hd for Hgb of 5. Hgb 5.8 on labs in the ED. Found to be slightly hypoxic. Will transfuse on HD, check CXR to evaluate for US, reassess.
--- NOTE | 2019-05-09 07:46 | PDOC ---
History of Present Illness - General Stated Complaint: LOW HEMOGLOBIN Past History - Past Medical History Allergies/Adverse Reactions: Allergies Allergy/AdvReac Type Severity Reaction Status Date / Time shellfish derived Allergy Severe "HIVES" Verified 05/09/19 08:51 No Known Drug Allergies Allergy Verified 05/09/19 08:51 Home Medications: Ambulatory Orders Fluticasone Prop 0.05% Nasal [Flonase -] 1 - 2 spray NS DAILY #1 spray.pump Lidocaine 5% Patch [Lidoderm -] 1 patch TP DAILY patch 10/06/17 Lidocaine Patch Removal [Lidoderm Patch Removal] 1 each MC DAILY@2200 each 02/13 traZODone HCL [Desyrel -] 450 mg PO HS 04/07/19 Methadone [Dolophine -] 2.5 mg PO TID 04/16/19 Doxazosin Mesylate [Cardura -] 2 mg PO HS #30 tablet 04/20/19 Gabapentin [Neurontin -] 300 mg PO TID #90 capsule 04/20/19 Insulin Sliding Scale [Novolog Vial Sliding Scale -] 1 vial SQ TIDAC #1 vial Nifedipine ER [Procardia XL -] 60 mg PO DAILY #30 tab.er.24 04/20/19 Vitamin B Comp W-C [Nephro-Guilherme -] 1 tablet PO DAILY #30 tablet 04/20/19 Insulin (Levemir) [Levemir Vial] 8 unit SQ HS 05/10/19 Anemia: Yes COPD: Yes CHF: No Diabetes: Yes Dialysis: Yes HTN: Yes Thyroid Disease: No Lung CA: Yes (depression) - Surgical History Abdominal Surgery: Yes (HERNIA) Orthopedic Surgery: Yes (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, rt gr toe amputation) - Immunization History Immunization Up to Date: Yes - Psycho Social/Smoking Cessation Hx Smoking Status: No Smoking History: Former smoker Have you smoked in the past 12 months: Yes Number of Cigarettes Smoked Daily: 1 If you are a former smoker, when did you quit?: FEB 2019 Cigars Per Day: 1 'Breaking Loose' booklet given: 09/24/17 Hx Alcohol Use: No Drug/Substance Use Hx: No Substance Use Type: None Hx Substance Use Treatment: No ED Treatment Course - LABORATORY CBC & Chemistry Diagram: 05/10/19 02:15 05/09/19 08:14 Medical Decision Making - Medical Decision Making 05/09/19 08:09 HPI: 63yo M hx ESRD on HD T//S, DM, HTN, b/l BKA (R BKA done during 04/06-04/21 admission, sutures removed yesterday), ?COPD, and hx MRSA bacteremia 2/2 osteomyelitis sent by Hemodialysis clinic for Hb 5.8., with 5 days SOB and hypoxia, with new requirement for O2 5L by NC. Last dialysis , no problems with LUE fistula. SOB constant worse with exertion and laying down since gradual onset Saturday when pt believes was exposed to carbon monoxide for 2hrs at [facility]. No complications since R BKA surgery, sutures removed yesterday, no bleeding or purulence or erythema. Denies fever, chills, fatigue, headache, dizziness, numbness/tingling, weakness, vision changes, cough, chest pain, palpitations, leg swelling, abdominal pain, blood in stool, diarrhea, constipation, nausea, vomiting, dysuria, hematuria, confusion, hx DVT/PE, hemoptysis, recent travel, recent trauma, hormone use, sick contacts (but lives at [facility] and goes to HD). States has had anemia in the past requiring transfusions but only after surgery. Rehab - [facility] PCP - Keely, [facility] - Aniyah Chaudhry ROS: Constitutional: Positive for shaking. Negative for chills, fever, fatigue, diaphoresis. HENT: Negative for sore throat, rhinorrhea, congestion. Eyes: Negative for visual disturbance. Respiratory: Positive for shortness of breath. Negative for cough, and wheezing. Cardiovascular: Negative for chest pain, palpitations, and leg swelling. Gastrointestinal: Negative for abdominal pain, blood in stool, constipation, diarrhea, nausea, and vomiting. Genitourinary: Negative for dysuria, flank pain, and hematuria. Musculoskeletal: Negative for myalgias, back pain, and neck pain. Skin: Positive for sacral ulcer. Negative for rash. Neurological: Negative for light-headedness, dizziness, vertigo, syncope, weakness, numbness and headaches. Psychiatric/Behavioral: Negative for behavioral problems and confusion. PE: Gen: Alert, NAD, comfortable-appearing. HEENT: PERRL, EOMI, MMM, NCAT. No conjunctival pallor. Sclera are non-icteric. CV: Regular rate and rhythm. No murmurs, rubs, or gallops. PULM: No resp distress. CTAB, no wheezes, rales, or rhonchi. ABD: soft, NT/ND, no rebound tenderness or guarding, no CVA tenderness. BACK: No TTP of c/t/l-spine. No step-offs or deformities. RECTAL: Rectal exam performed. No octavio blood, fissures, skin flaps, or hemorrhoids seen. No masses or hemorrhoids felt. No pain with digital insertion. Guiac test negative. +sacral ulcer MSK: +b/l BKA with splint on RLE and compression sleeve on LLE, no wounds/ erythema/warmth/purulence, well-healing surgical site distal RLE, distal LLE screw for prosthetic. 2+ pulses in all extremities. NEURO: AAOx3. PERRL. No gross CN deficits. Strength and sensation grossly intact throughout. EXTREMITIES: No cyanosis. No clubbing. No edema. +LUE fistula with +thrill/ bruit. PSYCH: Normal mood and thought pattern. SKIN: Warm and dry. Normal capillary refill. No rashes. No jaundice. MDM: 63yo M hx ESRD on HD T//, DM, HTN, b/l BKA (R BKA done during 04/06-04/21 admission, sutures removed yesterday), ?COPD, and hx MRSA bacteremia 2/2 osteomyelitis sent by Hemodialysis clinic for Hb 5.8., with 5 days SOB and hypoxia, with new requirement for O2 5L by NC. O2 93% desats to 83% with exertion (95% on NC 3L), other VSS, afebrile. Ddx: most likely symptomatic anemia - FOBT to r/o GIB. Also consider COPD exacerbation, ACS/NM, PNA, metabolic derangement, CO poisoning, infection (UTI, PNA; no e/o wound or surgical infection; no systemic sx of infxn). Also consider PE due to recent surgery, but due to more probable etiology of anemia, tx anemia and consider CTPE if SOB continues despite tx. -EKG -CXR -Transfusion labs -FOBT -document imaging manager -O2 NC 3L -Consult pt's drain cleaner plumber Aniyah Chaudhry at - called at [phone]. Pending call back -Dispo: pending w/u 05/09/19 08:52 EKG reviewed: sinus rhythm with 1st degree AV block, IRBBB, 89bpm, AZ interval 218ms, QTc 447ms, no TWIs, no ST elevations or depressions CXR reviewed: no acute pathology, no significant change since prior 05/09/19 09:39 Labs reviewed. pRBCs ordered for Hb 5.8 Consent for blood transfusion obtained. 6U insulin ordered for glucose 513 Tylenol for pain (from RLE s/p surgery) Called [facility] for admission. 05/09/19 09:54 Signed out to admitting team. 05/09/19 10:[address] Riggs - stated her supervisor television chassis repair doctor was not aware of the system and should not have accepted pt. Pt is a clinic pt so will be admitted to hospitalist. Microblog sent. Dr Aniyah Chaudhry paged again. 05/09/19 10:[address] Mancini - agrees with plan. Transfuse 2U then will do dialysis. 05/09/19 12:24 Signed out to admitting team. Discharge - Discharge Information Problems reviewed: Yes Clinical Impression/Diagnosis: Anemia, ESRD (end stage renal disease), Dialysis patient Condition: Stable - Admission Yes - Follow up/Referral - Patient Discharge Instructions - Post Discharge Activity
[2019-05-09 08:53] LABS: ARTERIAL BLD GAS O2 SATURATION 96.4 % (95-98); ARTERIAL BLOOD GAS BASE EXCESS -1.7 meq/l (-2-2); ARTERIAL BLOOD GAS PCO2 41.2 mmHg (35-45); ARTERIAL BLOOD GAS PO2 95.7 mmHg (80-100); ARTERIAL BLOOD GAS pH 7.36 (7.35-7.45); CARBOXYHEMOGLOBIN 1.5 % (0-2)
[2019-05-09 08:55] LABS: BASO % 0.4 % (0-2.0); EOS % 0.1 % (0-4.5); HEMATOCRIT 18.2 % (35.4-49); LYMPH % 6.9 % (8-40); MCH 27.5 pg (25.7-33.7); MCHC 31.6 g/dl (32.0-35.9); MEAN PLT VOLUME 7.4 fl (7.5-11.1); MONO % 4.6 % (3.8-10.2); PLATELET COUNT 407 K/MM3 (134-434); RBC 2.09 M/mm3 (4.00-5.60); RDW 18.1 % (11.9-15.9)
[2019-05-09 09:00] LABS: ALLENS TEST POSITIVE
[2019-05-09 09:08] LABS: HEMOGLOBIN 5.8 GM/dL (11.7-16.9)
[2019-05-09 09:27] LABS: ALBUMIN 2.4 g/dl (3.4-5.0); BILIRUBIN,TOTAL 0.2 mg/dL (0.2-1); BLOOD UREA NITROGEN 56.1 mg/dL (7-18); CREATININE 4.2 mg/dL (0.55-1.3); MAGNESIUM 2.3 mg/dL (1.8-2.4); POTASSIUM 4.9 mmol/L (3.5-5.1); TOT PROT 7.1 g/dl (6.4-8.2)
[2019-05-09] MEDS ORDERED: ACETAMINOPHEN 1000 MG/100 ML VIAL (NON FORMULARY) IVPB ONE (09:33)
[2019-05-09] MEDS ORDERED: INSULIN REGULAR HUMAN 100 UNITS/ML *VIAL IVPUSH ONE (09:37)
--- NOTE | 2019-05-09 09:58 | HP ---
Admitting History and Physical - Primary Care Physician PCP: [facility] Riggs - Admission History Source: Patient - Past Medical History SCRIPT DEVELOPER: Yes: Peripheral Neuropathy Cardiovascular: Yes: HTN Gastrointestinal: Yes: GERD Renal/: Yes: Renal Failure, Renal Inusuff, Hemodialysis Heme/Onc: Yes: Anemia Infectious Disease: Yes: Other (osteomyelitis) Psych: Yes: Depression Musculoskeletal: Yes: Other (chronic pain) Rheumatology: Yes: Other (history of osteomyelitis) Endocrine: Yes: Diabetes Mellitus - Past Surgical History Past Surgical History: Yes: Amputation (transmetatarsal of Left foot) - Smoking History Smoking history: Former smoker Have you smoked in the past 12 months: Yes Aproximately how many cigarettes per day: 1 If you are a former smoker, when did you quit?: FEB 2019 - Alcohol/Substance Use Hx Alcohol Use: No Number of Drinks Daily: 2 (weekends) History of Substance Use: reports: None - Social History ADL: Support Services History of Recent Travel: No Home Medications - Allergies Allergies/Adverse Reactions: Allergies Allergy/AdvReac Type Severity Reaction Status Date / Time shellfish derived Allergy Severe "HIVES" Verified 05/09/19 08:51 No Known Drug Allergies Allergy Verified 05/09/19 08:51 - Home Medications Home Medications: Ambulatory Orders Albuterol 0.083% Nebulizer Coretta [Ventolin 0.083% Nebulizer Soln -] 1 amp NEB Q4H PRN #120 amp 08/23/17 Fluticasone Prop 0.05% Nasal [Flonase -] 1 - 2 spray NS DAILY #1 spray.pump Lidocaine 5% Patch [Lidoderm -] 1 patch TP DAILY patch 10/06/17 Lidocaine Patch Removal [Lidoderm Patch Removal] 1 each MC DAILY@2200 each 02/13 traZODone HCL [Desyrel -] 450 mg PO HS 04/07/19 Methadone [Dolophine -] 2.5 mg PO TID 04/16/19 Bismuth Tribromoph/Petrolatum [Xeroform Petrolatum Dress] 1 each TP DAILY #10 bandage 04/20/19 Doxazosin Mesylate [Cardura -] 2 mg PO HS #30 tablet 04/20/19 Gabapentin [Neurontin -] 300 mg PO TID #90 capsule 04/20/19 Insulin (Levemir) [Levemir Vial] 3 units SQ HS #1 vial 04/20/19 Insulin Sliding Scale [Novolog Vial Sliding Scale -] 1 vial SQ HS #1 vial Insulin Sliding Scale [Novolog Vial Sliding Scale -] 1 vial SQ TIDAC #1 vial Nifedipine ER [Procardia XL -] 60 mg PO DAILY #30 tab.er.24 04/20/19 Vancomycin HCl 125 mg PO Q6H #28 capsule 04/20/19 Vitamin B Comp W-C [Nephro-Guilherme -] 1 tablet PO DAILY #30 tablet 04/20/19 Physical Examination Vital Signs: Vital Signs Temperature 97.8 F 05/09/19 07:30 Pulse Rate 85 05/09/19 07:30 Respiratory Rate 18 05/09/19 07:30 Blood Pressure 166/97 05/09/19 07:30 O2 Sat by Pulse Oximetry (%) 94 L 05/09/19 07:30 Labs: CBC, BMP 05/09/19 08:14 05/09/19 08:14 CBC,CMP WBC 9.0 K/mm3 (4.0-10.0) 05/09/19 08:14 RBC 2.09 M/mm3 (4.00-5.60) L 05/09/19 08:14 Hgb 5.8 GM/dL (11.7-16.9) L* 05/09/19 08:14 Hct 18.2 % (35.4-49) L D 05/09/19 08:14 MCV 87.0 fl (80-96) 05/09/19 08:14 MCH 27.5 pg (25.7-33.7) 05/09/19 08:14 MCHC 31.6 g/dl (32.0-35.9) L 05/09/19 08:14 RDW 18.1 % (11.9-15.9) H 05/09/19 08:14 Plt Count 407 K/MM3 (134-434) 05/09/19 08:14 MPV 7.4 fl (7.5-11.1) L 05/09/19 08:14 Absolute Neuts (auto) 7.9 K/mm3 (1.5-8.0) 05/09/19 08:14 Neutrophils % 88.0 % (42.8-82.8) H 05/09/19 08:14 Lymphocytes % 6.9 % (8-40) L D 05/09/19 08:14 Monocytes % 4.6 % (3.8-10.2) 05/09/19 08:14 Eosinophils % 0.1 % (0-4.5) D 05/09/19 08:14 Basophils % 0.4 % (0-2.0) 05/09/19 08:14 Nucleated RBC % 0 % (0-0) 05/09/19 08:14 Sodium 131 mmol/L (136-145) L 05/09/19 08:14 Potassium 4.9 mmol/L (3.5-5.1) 05/09/19 08:14 Chloride 98 mmol/L (98-107) 05/09/19 08:14 Carbon Dioxide 24 mmol/L (21-32) 05/09/19 08:14 Anion Gap 10 MMOL/L (8-16) 05/09/19 08:14 BUN 56.1 mg/dL (7-18) H 05/09/19 08:14 Creatinine 4.2 mg/dL (0.55-1.3) H 05/09/19 08:14 Est GFR (CKD-EPI)AfAm 16.30 05/09/19 08:14 Est GFR (CKD-EPI)NonAf 14.07 05/09/19 08:14 Random Glucose 513 mg/dL (74-106) H* 05/09/19 08:14 Calcium 8.0 mg/dL (8.5-10.1) L 05/09/19 08:14 Phosphorus 5.0 mg/dL (2.5-4.9) H 05/09/19 08:14 Magnesium 2.3 mg/dL (1.8-2.4) 05/09/19 08:14 Total Bilirubin 0.2 mg/dL (0.2-1) 05/09/19 08:14 AST 11 U/L (15-37) L 05/09/19 08:14 ALT 23 U/L (13-61) 05/09/19 08:14 Alkaline Phosphatase 231 U/L (45-117) H 05/09/19 08:14 Creatine Kinase 84 U/L (26-308) 05/09/19 08:14 Troponin I < 0.02 ng/ml (0.00-0.05) 05/09/19 08:14 Total Protein 7.1 g/dl (6.4-8.2) 05/09/19 08:14 Albumin 2.4 g/dl (3.4-5.0) L 05/09/19 08:14 Problem List - Problems (1) Anemia Code(s): D64.9 - ANEMIA, UNSPECIFIED Qualifiers: (2) ESRD (end stage renal disease) Code(s): N18.6 - END STAGE RENAL DISEASE (3) COPD with emphysema Code(s): J43.9 - EMPHYSEMA, UNSPECIFIED (4) HTN (hypertension) Code(s): I10 - ESSENTIAL (PRIMARY) HYPERTENSION Qualifiers: (5) Neuropathy Code(s): G62.9 - POLYNEUROPATHY, UNSPECIFIED (6) Severe anemia Code(s): D64.9 - ANEMIA, UNSPECIFIED (7) Type 2 diabetes mellitus with foot ulcer Code(s): E11.621 - TYPE 2 DIABETES MELLITUS WITH FOOT ULCER; L97.509 - NON- PRESSURE CHRONIC ULCER OTH PRT UNSP FOOT W UNSP SEVERITY Qualifiers:
[2019-05-09] MEDS ORDERED: ACETAMINOPHEN INJECTION 100 ML IVPB ONE (10:13)
[2019-05-09] MEDS ORDERED: INSULIN REGULAR HUMAN 100 UNITS/ML *VIAL ONE (10:13)
[2019-05-09] MEDS ORDERED: LIDOCAINE 5% TOPICAL PATCH ONE (10:58)
[2019-05-09] MEDS ORDERED: NIFEdipine E.R. 30 MG TABLET ONE (10:58)
[2019-05-09] MEDS: VITAMIN B COMP W-C 1 EA TABLET PO SCH (11:15)
[2019-05-09] MEDS: PATIENT'S OWN MEDICATION (NON-FORMULARY) (Bismuth Tribromoph/Petrolatum [Xeroform Petrolat TP SCH (11:15)
[2019-05-09] MEDS: FLUTICASONE PROP 0.05% 16 GM NASAL SPRAY NS SCH (11:15)
[2019-05-09] MEDS: LIDOCAINE 5% TOPICAL PATCH TP SCH (11:15)
[2019-05-09] MEDS: NIFEdipine E.R 60 MG TABLET PO SCH (11:15)
[2019-05-09 11:49] LABS: EPI CELLS 1.7 /HPF (0-5/HPF); HYALINE CASTS 1 /lpf (0-8); PH,URINE 6.5 (5.0-8.0); URINE APPEARANCE CLEAR; URINE BACTERIA 1.7 /hpf (NEGATIVE); URINE BILIRUBIN NEGATIVE (NEGATIVE); URINE COLOR YELLOW; URINE GLUCOSE (UA) 2+ (NEGATIVE); URINE KETONE NEGATIVE (NEGATIVE); URINE LEUK ESTERASE NEGATIVE (NEGATIVE); URINE NITRITE NEGATIVE (NEGATIVE); URINE PROTEIN 3+ (NEGATIVE); URINE RBC 4 /hpf (0-4); URINE UROBILINOGEN 0.2 mg/dL (0.2-1.0); URINE WBC 4 /hpf (0-5)
[2019-05-09] MEDS: INSULIN SLIDING SCALE (NOVOLOG) 1 VIAL SQ SCH ×2 (12:01→17:38)
--- NOTE | 2019-05-09 12:26 | HP ---
<Issac Herron - Last Filed: 05/09/19 12:34> CHIEF COMPLAINT: SOB, Anemia PCP: Dr. Riggs ([facility] [place] [facility]) HISTORY OF PRESENT ILLNESS: The patient is a 63yo M w/ PMH ESRD on HD T//S, DM, HTN, b/l BKA (R BKA done during 04/06-04/21 admission, sutures removed yesterday), MRSA bacteremia 2/2 osteomyelitis who was sent by Hemodialysis clinic for Hb 6.4. He was unable to complete HD today. Patient also endorses SOB at half-way for the past 1 week prior. The patient denies fever, cough, sick contacts, sputum production. He has never been this anemic before. In the ED, the patient was hemodynamically stable, but found to have a Hb of 5.8. 2u PRBC were ordered and the patient's cmm technician was consulted, who states that he will be dialyzed after he is transfused. The patient was also found to be hyperglycemic to 513 and was given 6 units of insulin IV in the ED. Recent Travel: none PAST MEDICAL HISTORY: see HPI PAST SURGICAL HISTORY: b/l BKA Social History: Smoking: denies Alcohol: social Drugs: on methadone 2.5 for pain control currently smokes medical marijuana Allergies shellfish derived Allergy (Severe, Verified 05/09/19 08:51) "HIVES" SWELLING No Known Drug Allergies Allergy (Verified 05/09/19 08:51) HOME MEDICATIONS: Home Medications Medication Instructions Recorded Albuterol 0.083% Nebulizer Coretta 1 amp NEB Q4H PRN #120 amp 08/23/17 [Ventolin 0.083% Nebulizer Soln -] Fluticasone Prop 0.05% Nasal 1 - 2 spray NS DAILY #1 spray.pump 08/23/17 [Flonase -] Lidocaine 5% Patch [Lidoderm -] 1 patch TP DAILY patch 10/06/17 Lidocaine Patch Removal [Lidoderm 1 each MC DAILY@2200 each 10/06/17 Patch Removal] traZODone HCL [Desyrel -] 450 mg PO HS 04/07/19 Methadone [Dolophine -] 2.5 mg PO TID 04/16/19 Bismuth Tribromoph/Petrolatum 1 each TP DAILY #10 bandage 04/20/19 [Xeroform Petrolatum Dress] Doxazosin Mesylate [Cardura -] 2 mg PO HS #30 tablet 04/20/19 Gabapentin [Neurontin -] 300 mg PO TID #90 capsule 04/20/19 Insulin (Levemir) [Levemir Vial] 3 units SQ HS #1 vial 04/20/19 Insulin Sliding Scale [Novolog 1 vial SQ HS #1 vial 04/20/19 Vial Sliding Scale -] Insulin Sliding Scale [Novolog 1 vial SQ TIDAC #1 vial 04/20/19 Vial Sliding Scale -] Nifedipine ER [Procardia XL -] 60 mg PO DAILY #30 tab.er.24 04/20/19 Vancomycin HCl 125 mg PO Q6H #28 capsule 04/20/19 Vitamin B Comp W-C [Nephro-Guilherme -] 1 tablet PO DAILY #30 tablet 04/20/19 REVIEW OF SYSTEMS CONSTITUTIONAL: Absent: fever, chills, diaphoresis, generalized weakness, malaise, loss of appetite, weight change HEENT: Absent: rhinorrhea, nasal congestion, throat pain, throat swelling, difficulty swallowing, mouth swelling, ear pain, eye pain, visual changes CARDIOVASCULAR: Absent: chest pain, syncope, palpitations, irregular heart rate, lightheadedness , peripheral edema RESPIRATORY: Absent: cough, stridor, hemoptysis GASTROINTESTINAL: Absent: abdominal pain, abdominal distension, nausea, vomiting, diarrhea, constipation, melena, hematochezia GENITOURINARY: Absent: dysuria, frequency, urgency, hesitancy, hematuria, flank pain, genital pain MUSCULOSKELETAL: Absent: myalgia, arthralgia, joint swelling, back pain, neck pain SKIN: Absent: rash, itching, pallor HEMATOLOGIC/IMMUNOLOGIC: Absent: easy bleeding, easy bruising, lymphadenopathy, frequent infections ENDOCRINE: Absent: unexplained weight gain, unexplained weight loss, heat intolerance, cold intolerance NEUROLOGIC: Absent: headache, focal weakness or paresthesias, dizziness, unsteady gait, seizure, mental status changes, bladder or bowel incontinence PSYCHIATRIC: Absent: anxiety, depression, suicidal or homicidal ideation, hallucinations. PHYSICAL EXAMINATION Vital Signs - 24 hr 05/09/19 05/09/19 05/09/19 07:30 09:26 10:06 Temperature 97.8 F 98 F Pulse Rate 85 Pulse Rate [ 85 89 Left Apical] Respiratory 18 14 18 Rate Blood Pressure 166/97 Blood Pressure 183/101 H 173/103 H [Right Arm] O2 Sat by Pulse 94 L 100 100 Oximetry (%) 05/09/19 05/09/19 05/09/19 10:27 10:42 11:40 Temperature 98 F 98 F 98 F Pulse Rate Pulse Rate [ 77 82 84 Left Apical] Respiratory 18 18 18 Rate Blood Pressure Blood Pressure 174/99 H 164/97 174/93 H [Right Arm] O2 Sat by Pulse 100 100 98 Oximetry (%) GENERAL: Awake, alert, and fully oriented, in no acute distress. HEAD: Normal with no signs of trauma. EYES: Pupils equal, round and reactive to light, extraocular movements intact, sclera anicteric, conjunctiva clear. No lid lag. LUNGS: Breath sounds equal, clear to auscultation bilaterally. No wheezes, and no crackles. No accessory muscle use. HEART: Regular rate and rhythm, normal S1 and S2 without murmur, rub or gallop. ABDOMEN: Soft, nontender, not distended, normoactive bowel sounds, no guarding, no rebound, no masses. No hepatomegaly or splenomegaly. LOWER EXTREMITIES: No peripheral edema noted. Patient is s/p b/l BKA. Both stumps clean, dry and free of wounds or skin breakdown. NEUROLOGICAL: Cranial nerves II-X intact. Normal speech. SKIN: Warm, dry, normal turgor, no rashes or lesions noted, normal capillary refill. Laboratory Results - last 24 hr 05/09/19 05/09/19 05/09/19 08:14 08:14 08:14 WBC 9.0 RBC 2.09 L Hgb 5.8 L* Hct 18.2 L D MCV 87.0 MCH 27.5 MCHC 31.6 L RDW 18.1 H Plt Count 407 MPV 7.4 L Absolute Neuts (auto) 7.9 Neutrophils % 88.0 H Lymphocytes % 6.9 L D Monocytes % 4.6 Eosinophils % 0.1 D Basophils % 0.4 Nucleated RBC % 0 PTT (Actin FS) 43.5 H Anticoagulation Therapy Puncture Site ABG pH ABG pCO2 at Pt Temp ABG pO2 at Pt Temp ABG HCO3 ABG O2 Sat (Measured) ABG O2 Content ABG Base Excess Beau Test Carboxyhemoglobin Methemoglobin O2 Delivery Device Oxygen Flow Rate Vent Mode Vent Rate Mechanical Rate Pressure Support Vent Sodium Potassium Chloride Carbon Dioxide Anion Gap BUN Creatinine Est GFR (CKD-EPI)AfAm Est GFR (CKD-EPI)NonAf POC Glucometer Random Glucose Calcium Phosphorus Magnesium Total Bilirubin AST ALT Alkaline Phosphatase Creatine Kinase 84 Troponin I < 0.02 Total Protein Albumin Urine Color Urine Appearance Urine pH Ur Specific Linwood Urine Protein Urine Glucose (UA) Urine Ketones Urine Blood Urine Nitrite Urine Bilirubin Urine Urobilinogen Ur Leukocyte Esterase Urine WBC (Auto) Urine RBC (Auto) Urine Casts (Auto) U Epithel Cells (Auto) Urine Bacteria (Auto) Stool Occult Blood Blood Type Antibody Screen Crossmatch 05/09/19 05/09/19 05/09/19 08:14 08:14 08:14 WBC RBC Hgb Hct MCV MCH MCHC RDW Plt Count MPV Absolute Neuts (auto) Neutrophils % Lymphocytes % Monocytes % Eosinophils % Basophils % Nucleated RBC % PTT (Actin FS) Anticoagulation Therapy Puncture Site ABG pH ABG pCO2 at Pt Temp ABG pO2 at Pt Temp ABG HCO3 ABG O2 Sat (Measured) ABG O2 Content ABG Base Excess Beau Test Carboxyhemoglobin Methemoglobin O2 Delivery Device Oxygen Flow Rate Vent Mode Vent Rate Mechanical Rate Pressure Support Vent Sodium 131 L Potassium 4.9 Chloride 98 Carbon Dioxide 24 Anion Gap 10 BUN 56.1 H Creatinine 4.2 H Est GFR (CKD-EPI)AfAm 16.30 Est GFR (CKD-EPI)NonAf 14.07 POC Glucometer Random Glucose 513 H* Calcium 8.0 L Phosphorus 5.0 H Magnesium 2.3 Total Bilirubin 0.2 AST 11 L ALT 23 Alkaline Phosphatase 231 H Creatine Kinase Troponin I Total Protein 7.1 Albumin 2.4 L Urine Color Urine Appearance Urine pH Ur Specific Linwood Urine Protein Urine Glucose (UA) Urine Ketones Urine Blood Urine Nitrite Urine Bilirubin Urine Urobilinogen Ur Leukocyte Esterase Urine WBC (Auto) Urine RBC (Auto) Urine Casts (Auto) U Epithel Cells (Auto) Urine Bacteria (Auto) Stool Occult Blood Negative Blood Type B POSITIVE Antibody Screen Negative Crossmatch See Detail 05/09/19 05/09/19 05/09/19 08:44 10:14 11:21 WBC RBC Hgb Hct MCV MCH MCHC RDW Plt Count MPV Absolute Neuts (auto) Neutrophils % Lymphocytes % Monocytes % Eosinophils % Basophils % Nucleated RBC % PTT (Actin FS) Anticoagulation Therapy No Result Required. Puncture Site Right radial ABG pH 7.36 ABG pCO2 at Pt Temp 41.2 ABG pO2 at Pt Temp 95.7 ABG HCO3 22.9 ABG O2 Sat (Measured) 96.4 ABG O2 Content 7.5 ABG Base Excess -1.7 Beau Test Positive Carboxyhemoglobin 1.5 Methemoglobin 1.3 O2 Delivery Device No Result Required. Oxygen Flow Rate Yes Vent Mode No Result Required. Vent Rate No Result Required. Mechanical Rate No Result Required. Pressure Support Vent No Result Required. Sodium Potassium Chloride Carbon Dioxide Anion Gap BUN Creatinine Est GFR (CKD-EPI)AfAm Est GFR (CKD-EPI)NonAf POC Glucometer 413 Random Glucose Calcium Phosphorus Magnesium Total Bilirubin AST ALT Alkaline Phosphatase Creatine Kinase Troponin I Total Protein Albumin Urine Color Yellow Urine Appearance Clear Urine pH 6.5 D Ur Specific Linwood 1.017 Urine Protein 3+ H Urine Glucose (UA) 2+ H Urine Ketones Negative Urine Blood Negative Urine Nitrite Negative Urine Bilirubin Negative Urine Urobilinogen 0.2 Ur Leukocyte Esterase Negative Urine WBC (Auto) 4 Urine RBC (Auto) 4 Urine Casts (Auto) 1 U Epithel Cells (Auto) 1.7 Urine Bacteria (Auto) 1.7 Stool Occult Blood Blood Type Antibody Screen Crossmatch ASSESSMENT/PLAN: The patient is a 63yo M w/ PMH ESRD on HD T//, DM, HTN, b/l BKA (R BKA done during 04/06-04/21 admission, sutures removed yesterday), MRSA bacteremia 2/2 osteomyelitis who was sent by Hemodialysis clinic for Hb 6.4. #Symptomatic anemia likely 2/2 ESRD -Hb 5.8 -2u PRBC ordered in ED -f/u post transfusion CBC -supplemental O2 for SOB -monitor for fluid overload #ESRD -did not complete HD today -nephro aware; will dialyze after transfusion #DM -hyperglycemic to 513 -s/p insulin IV in ed -BGM and ISS TIDAC -will resume home insulin regimen #FEN -no fluids indicated -lytes wnl, will dialyze later -renal/DM diet #Prophy -holding AC while anemic #dispo -admit med surg Visit type - Emergency Visit Emergency Visit: Yes ED Registration Date: 05/09/19 Care time: The patient presented to the Emergency Department on the above date and was hospitalized for further evaluation of their emergent condition. - New Patient This patient is new to me today: Yes Date on this admission: 05/09/19 - Critical Care Critical Care patient: No ATTENDING PHYSICIAN STATEMENT I saw and evaluated the patient. I reviewed the resident's note and discussed the case with the resident. I agree with the resident's findings and plan as documented. SUBJECTIVE: OBJECTIVE: ASSESSMENT AND PLAN: <Mati Reis - Last Filed: 05/09/19 17:57> CHIEF COMPLAINT: Seen and examined. Please see resident note for further historical information. I personally verified all the tolliver historical formation and exam findings. Personally in pretted imaging and diagnostics and reviewed appropriate results. I reviewed all labs and vital signs are per the resident note and EMR as documented. I agree with the above assessment and plan unless supplemented by myself and the following. ASSESSMENT/PLAN: Patient to have shortness of breath on anemia of 5.8. Apparently it looks like this is due to anemia but since patient said he is very athletic also smokes which he quit about 6 months ago at this time will order an echocardiogram to rule out cardiac function for shortness of breath. Also will start him albuterol nebulizer 3 times a day as needed for shortness of breath and. Will order an anemia work-up and I need consult by customs appraiser because he is going to need IV iron which is highly likely that he will develop iron deficiency anemia over the period of time. He said he is not taking iron therapy for some time used to take before but he has stopped for few months. ATTENDING PHYSICIAN STATEMENT I saw and evaluated the patient. I reviewed the resident's note and discussed the case with the resident. I agree with the resident's findings and plan as documented. SUBJECTIVE: OBJECTIVE: ASSESSMENT AND PLAN:
[2019-05-09] MEDS ORDERED: GABAPENTIN 100 MG CAPSULE ONE (14:11)
[2019-05-09] MEDS: GABAPENTIN 300 MG CAPSULE PO SCH ×2 (14:21→21:24)
--- NOTE | 2019-05-09 15:10 | EKG ---
Test Reason : Blood Pressure : / mmHG Vent. Rate : 089 BPM Atrial Rate : 089 BPM P-R Int : 218 ms QRS Dur : 094 ms QT Int : 368 ms P-R-T Axes : 097 053 060 degrees QTc Int : 447 ms SINUS RHYTHM WITH 1ST DEGREE A-V BLOCK INCOMPLETE RIGHT BUNDLE BRANCH BLOCK CANNOT RULE OUT ANTERIOR INFARCT (CITED ON OR BEFORE 24-SEP-2017) ABNORMAL ECG WHEN COMPARED WITH ECG OF 06-APR-2019 19:11, QUESTIONABLE CHANGE IN INITIAL [employer] OF SE[employer]AL LEADS Confirmed by CYRUS PARADA, JORDAN ([id number]) on 05/09/2019 3:10:17 PM Referred By: Confirmed By:JORDAN BRIDGES MD
--- NOTE | 2019-05-09 17:33 | CONSULT ---
Consult Consult Specialty:: Nephrology Reason for Consultation:: ESRD - History of Present Illness Chief Complaint: sent in for anemia History of Present Illness: Pt is a 63 year old male with pmhx of esrd, dm, htn, b/l bka, and osteo who was sent in for worsening anemia. He denies chest pain or shortness of breath. He denies blood in stool. His hg has been steadily dropping in HD. He did get a unit of blood in the ER. He is due for HD today but did not get it. He denies fevers or chills. He denies cough. 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: Yes: Peripheral Neuropathy Cardio/Vascular: Yes: HTN Gastrointestinal: Yes: GERD Renal/: Yes: Renal Failure, Renal Inusuff, Hemodialysis Infectious Disease: Yes: Other (osteomyelitis) Psych: Yes: Depression Musculoskeletal: Yes: Other (chronic pain) Rheumatology: Yes: Other (history of osteomyelitis) Endocrine: Yes: Diabetes Mellitus - Past Surgical History Past Surgical History: Yes: Amputation (transmetatarsal of Left foot) - Alcohol/Substance Use Hx Alcohol Use: No Number of Drinks Daily: 2 (weekends) History of Substance Use: reports: None - Smoking History Smoking history: Former smoker Have you smoked in the past 12 months: Yes Aproximately how many cigarettes per day: 1 If you are a former smoker, when did you quit?: FEB 2019 - Social History Usual Living Arrangement: Alone ADL: Support Services History of Recent Travel: No Home Medications - Allergies Allergies/Adverse Reactions: Allergies Allergy/AdvReac Type Severity Reaction Status Date / Time shellfish derived Allergy Severe "HIVES" Verified 05/09/19 08:51 No Known Drug Allergies Allergy Verified 05/09/19 08:51 - Home Medications Home Medications: Ambulatory Orders Albuterol 0.083% Nebulizer Coretta [Ventolin 0.083% Nebulizer Soln -] 1 amp NEB Q4H PRN #120 amp 08/23/17 Fluticasone Prop 0.05% Nasal [Flonase -] 1 - 2 spray NS DAILY #1 spray.pump Lidocaine 5% Patch [Lidoderm -] 1 patch TP DAILY patch 10/06/17 Lidocaine Patch Removal [Lidoderm Patch Removal] 1 each MC DAILY@2200 each 02/13 traZODone HCL [Desyrel -] 450 mg PO HS 04/07/19 Methadone [Dolophine -] 2.5 mg PO TID 04/16/19 Bismuth Tribromoph/Petrolatum [Xeroform Petrolatum Dress] 1 each TP DAILY #10 bandage 04/20/19 Doxazosin Mesylate [Cardura -] 2 mg PO HS #30 tablet 04/20/19 Gabapentin [Neurontin -] 300 mg PO TID #90 capsule 04/20/19 Insulin (Levemir) [Levemir Vial] 3 units SQ HS #1 vial 04/20/19 Insulin Sliding Scale [Novolog Vial Sliding Scale -] 1 vial SQ HS #1 vial Insulin Sliding Scale [Novolog Vial Sliding Scale -] 1 vial SQ TIDAC #1 vial Nifedipine ER [Procardia XL -] 60 mg PO DAILY #30 tab.er.24 04/20/19 Vancomycin HCl 125 mg PO Q6H #28 capsule 04/20/19 Vitamin B Comp W-C [Nephro-Guilherme -] 1 tablet PO DAILY #30 tablet 04/20/19 Family Medical History Family History: Denies Review of Systems - Review of Systems Constitutional: reports: Malaise Eyes: reports: No Symptoms HENT: reports: No Symptoms Neck: reports: No Symptoms Cardiovascular: reports: No Symptoms Gastrointestinal: reports: No Symptoms Genitourinary: reports: No Symptoms Musculoskeletal: reports: Other (bilateral amputation) Neurological: reports: No Symptoms Endocrine: reports: No Symptoms Physical Exam Vital Signs: Vital Signs Temperature 98.8 F 05/09/19 16:00 Pulse Rate 100 H 05/09/19 16:00 Respiratory Rate 20 05/09/19 16:00 Blood Pressure 139/92 05/09/19 16:00 O2 Sat by Pulse Oximetry (%) 97 05/09/19 16:00 Constitutional: Yes: Calm Eyes: Yes: Conjunctiva Clear HENT: Yes: Atraumatic Neck: Yes: Supple Cardiovascular: Yes: S1, S2 Respiratory: Yes: CTA Bilaterally Gastrointestinal: Yes: Normal Bowel Sounds, Soft Renal/: Yes: WNL Musculoskeletal: Yes: Other (bilateral bka) Edema: No Neurological: Yes: Oriented Psychiatric: Yes: Oriented Labs: CBC, BMP 05/09/19 08:14 05/09/19 08:14 Imaging - Results Chest X-ray: Report Reviewed Problem List - Problems (1) Anemia Code(s): D64.9 - ANEMIA, UNSPECIFIED Qualifiers: (2) ESRD (end stage renal disease) Code(s): N18.6 - END STAGE RENAL DISEASE (3) Below-knee amputation Code(s): S88.119A - COMPLETE TRAUM AMP AT LEV BETW KN & ANKL, UNSP LOW LEG, INIT (4) COPD with emphysema Code(s): J43.9 - EMPHYSEMA, UNSPECIFIED Assessment/Plan Current Medications Generic Name Dose Route Start Last Admin Trade Name Freq PRN Reason Stop Dose Admin Albuterol Sulfate 1 amp 05/09/19 09:53 Ventolin 0.083% Nebulizer Soln - NEB Q4H PRN SHORT OF BREATH/WHEEZING Doxazosin Mesylate 2 mg 05/09/19 22:00 Cardura - PO HS IGGY Fluticasone Propionate 1 spray 05/09/19 10:00 05/09/19 11:15 Flonase - NS 1 spray DAILY IGGY Administration Gabapentin 300 mg 05/09/19 14:00 05/09/19 14:21 Neurontin - PO 300 mg TID IGGY Administration Insulin Aspart 1 vial 05/09/19 11:00 05/09/19 12:01 Novolog Vial Sliding Scale - SQ 12 units TIDAC IGGY Administration Protocol Insulin Detemir 3 units 05/09/19 22:00 Levemir Vial SQ HS IGGY Lidocaine 1 patch 05/09/19 10:00 05/09/19 11:15 Lidoderm Patch - TP 1 patch DAILY IGGY Administration Methadone HCl 2.5 mg 05/09/19 14:00 Dolophine - PO TID IGGY Miscellaneous 1 each 05/09/19 22:00 Lidoderm Patch Removal MC DAILY@2200 [facility] Multivit/Ca Carb/B Cmplx/FA/Prenat 1 tablet 05/09/19 10:00 05/09/19 11:15 Nephro-Guilherme - PO 1 tablet DAILY IGGY Administration Nifedipine 60 mg 05/09/19 10:00 05/09/19 11:15 Procardia Xl - PO 60 mg DAILY IGGY Administration Non-Formulary Medication 1 each 05/09/19 10:00 05/09/19 11:15 Bismuth Tribromoph/Petrolatum [Xeroform Petrolatum Dress] TP Not Given DAILY IGGY Trazodone HCl 450 mg 05/09/19 22:00 Desyrel - PO HS IGGY Impression 1. ESRD on HD 2. anemia 3. PVD 4. DM Plan - transfuse prbc in er - will arrange for HD - prbc with hd as well - renal diet - will need anemia workup - check stool for occult blood - epogen for anemia - check iron studies
[2019-05-09] MEDS: METHADONE HCL 5 MG TABLET PO SCH ×2 (17:42→21:23)
[2019-05-09] MEDS: ALBUTEROL SO4 0.083% IH SOL 2.5 MG/3 ML VIAL.NEB. NEB SCH (19:30)
[2019-05-09] MEDS: LIDOCAINE PATCH REMOVAL MC SCH (21:24)
[2019-05-09] MEDS ORDERED: INSULIN (LEVEMIR) 100 UNITS/ML UNITS SQ SCH (22:00)
[2019-05-09] MEDS ORDERED: traZODone HCL 150 MG TABLET PO SCH (22:00)
[2019-05-09] MEDS ORDERED: traZODone HCL 100 MG TABLET (FP) ONE (22:48)
[2019-05-09] MEDS ORDERED: traZODone HCL 50 MG TABLET (FP) ONE (22:48)
[2019-05-09] MEDS: DOXAZOSIN MESYLATE 2 MG TABLET PO SCH (22:51)
[2019-05-09] MEDS: TRAZODONE HCL PO SCH (22:51)
[2019-05-09] MEDS ORDERED: EPOETIN ALFA 10,000 UNIT/1 ML VIAL IVPUSH ONE (23:45)
[2019-05-09] MEDS ORDERED: SODIUM CHLORIDE 250 ML IV PRN (23:53)
[2019-05-10 02:55] LABS: HEMATOCRIT 20.2 % (35.4-49); MCH 28.1 pg (25.7-33.7); MCHC 32.6 g/dl (32.0-35.9); MEAN CELL VOLUME 86.3 fl (80-96); PLATELET COUNT 317 K/MM3 (134-434); RBC 2.34 M/mm3 (4.00-5.60); WHITE BLOOD COUNT 9.8 K/mm3 (4.0-10.0)
[2019-05-10 03:12] LABS: HEMOGLOBIN 6.6 GM/dL (11.7-16.9)
--- NOTE | 2019-05-10 04:18 | PN ---
Progress Note (short form) - Note Progress Note: Pt'sHb was 6.6 following 2 units PRBCs and HD. Another 2 units PRBCs were ordered to be administered for a total of 4. Will repeat CBC after the next 2 units and transfuse accordingly.
[2019-05-10] MEDS: METHADONE HCL 5 MG TABLET PO SCH ×3 (06:00→23:08)
[2019-05-10] MEDS: GABAPENTIN 300 MG CAPSULE PO SCH ×3 (06:00→23:08)
[2019-05-10] MEDS: INSULIN SLIDING SCALE (NOVOLOG) 1 VIAL SQ SCH ×3 (06:00→17:27)
[2019-05-10] MEDS: ALBUTEROL SO4 0.083% IH SOL 2.5 MG/3 ML VIAL.NEB. NEB SCH ×4 (07:02→20:27)
[2019-05-10] MEDS: VITAMIN B COMP W-C 1 EA TABLET PO SCH (09:31)
[2019-05-10] MEDS: FLUTICASONE PROP 0.05% 16 GM NASAL SPRAY NS SCH (09:31)
[2019-05-10] MEDS: LIDOCAINE 5% TOPICAL PATCH TP SCH (09:31)
[2019-05-10] MEDS: NIFEdipine E.R 60 MG TABLET PO SCH (09:32)
[2019-05-10] MEDS: TIOTROPIUM BROMIDE 2.5 MCG (SPIRIVA) RESPIMAT INHALER IH SCH (09:36)
--- NOTE | 2019-05-10 11:21 | CONSULT ---
Consult Consult Specialty:: Hematology Referred by:: Medicine Reason for Consultation:: Anemia - History of Present Illness Chief Complaint: Patient with recent sudden onset SOB, and headache. Found to to have significant anemia below baseline. History of Present Illness: Dialysis patient, recent [place] ([place]), now in [place], reports onset of above symptoms, which he attributes to exposure to fumes (diesel) in [place] room. (? !) Denies chest pain, diaphoresis. Denies fevers, cough. Also reports episode of noting blood in stools 2 nights ago. (although stool hemeoccult negative on admission) History of PE noted in the past. Not on anticoagulation. Reports having received 4 units RBCs since admission, but says dyspnea not improved. 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: Peripheral Neuropathy Cardio/Vascular: Yes: HTN Gastrointestinal: Yes: GERD Renal/: Yes: Renal Failure, Renal Inusuff, Hemodialysis Infectious Disease: Yes: Other (osteomyelitis) Psych: Yes: Depression Musculoskeletal: Yes: Other (chronic pain) Rheumatology: Yes: Other (history of osteomyelitis) Endocrine: Yes: Diabetes Mellitus - Past Surgical History Past Surgical History: Yes: Amputation (transmetatarsal of Left foot) - Alcohol/Substance Use Hx Alcohol Use: No Number of Drinks Daily: 2 (weekends) History of Substance Use: reports: None - Smoking History Smoking history: Former smoker Have you smoked in the past 12 months: Yes Aproximately how many cigarettes per day: 1 If you are a former smoker, when did you quit?: FEB 2019 - Social History Usual Living Arrangement: Alone ADL: Support Services History of Recent Travel: No Home Medications - Allergies Allergies/Adverse Reactions: Allergies Allergy/AdvReac Type Severity Reaction Status Date / Time shellfish derived Allergy Severe "HIVES" Verified 05/09/19 08:51 No Known Drug Allergies Allergy Verified 05/09/19 08:51 - Home Medications Home Medications: Ambulatory Orders Albuterol 0.083% Nebulizer Coretta [Ventolin 0.083% Nebulizer Soln -] 1 amp NEB Q4H PRN #120 amp 08/23/17 Fluticasone Prop 0.05% Nasal [Flonase -] 1 - 2 spray NS DAILY #1 spray.pump Lidocaine 5% Patch [Lidoderm -] 1 patch TP DAILY patch 10/06/17 Lidocaine Patch Removal [Lidoderm Patch Removal] 1 each MC DAILY@2200 each 02/13 traZODone HCL [Desyrel -] 450 mg PO HS 04/07/19 Methadone [Dolophine -] 2.5 mg PO TID 04/16/19 Bismuth Tribromoph/Petrolatum [Xeroform Petrolatum Dress] 1 each TP DAILY #10 bandage 04/20/19 Doxazosin Mesylate [Cardura -] 2 mg PO HS #30 tablet 04/20/19 Gabapentin [Neurontin -] 300 mg PO TID #90 capsule 04/20/19 Insulin (Levemir) [Levemir Vial] 3 units SQ HS #1 vial 04/20/19 Insulin Sliding Scale [Novolog Vial Sliding Scale -] 1 vial SQ HS #1 vial Insulin Sliding Scale [Novolog Vial Sliding Scale -] 1 vial SQ TIDAC #1 vial Nifedipine ER [Procardia XL -] 60 mg PO DAILY #30 tab.er.24 04/20/19 Vancomycin HCl 125 mg PO Q6H #28 capsule 04/20/19 Vitamin B Comp W-C [Nephro-Guilherme -] 1 tablet PO DAILY #30 tablet 04/20/19 Review of Systems - Review of Systems Constitutional: denies: Diaphoresis, Fever, Loss of Appetite, Night Sweats Eyes: reports: No Symptoms HENT: reports: No Symptoms Neck: reports: No Symptoms Cardiovascular: reports: Shortness of Breath. denies: Chest Pain, Edema, Palpitations Respiratory: reports: Exercise Intolerance, SOB. denies: Wheezing Gastrointestinal: reports: Rectal Bleeding. denies: Abdominal Pain, Vomiting Blood Genitourinary: reports: No Symptoms Musculoskeletal: reports: No Symptoms Neurological: denies: Change in LOC, Weakness Endocrine: denies: Excessive Sweating Hematology/Lymphatic: denies: Easily Bruised, Excessive Bleeding Psychiatric: reports: No Symptoms Physical Exam Vital Signs: Vital Signs Temperature 98.6 F 05/10/19 09:30 Pulse Rate 93 H 05/10/19 09:30 Respiratory Rate 20 05/10/19 09:30 Blood Pressure 175/90 H 05/10/19 09:30 O2 Sat by Pulse Oximetry (%) 97 05/10/19 09:00 Constitutional: Yes: Well Nourished, No Distress, Mild Distress Eyes: Yes: Conjunctiva Clear HENT: Yes: WNL Neck: Yes: Supple, Trachea Midline. No: Lymphadenopathy Cardiovascular: Yes: S1, S2. No: Gallop, Murmur Respiratory: Yes: Regular, CTA Bilaterally Gastrointestinal: Yes: Normal Bowel Sounds. No: Ascites, Distention Musculoskeletal: Yes: WNL Extremities: Yes: Amputation Wound/Incision: Yes: Clean/Dry Neurological: Yes: Alert, Oriented Psychiatric: Yes: Alert, Oriented Labs: CBC, BMP 05/10/19 02:15 05/09/19 08:14 Assessment/Plan Acute on chronic anemia, in a dialysis patient, on [facility]. Recent (uncomplicated) surgery - RLE amputation. Assuming drop was incremental, and assuming no change in dialysis/epo regimen, must be attributable to either hemolysis of hemorrhage. Screen hemolysis labs, albeit with low index of suspicion - haptoglobin, LDH, reticulocyte count. Reports bleeding per rectum, but stool hemeoccult negative. Repeat. Concerned about acute onset, and persistence of dyspnea, despite RBC transfusion , raising concern about etiology other than anemia - would rule out PE - CTangio chest. Continue dialysis/ [facility], as for outpatient. Will follow.
[2019-05-10] MEDS ORDERED: FUROSEMIDE 40 MG/4 ML INJECTABLE VIAL IVPUSH ONE ×2 (11:48)
[2019-05-10] MEDS ORDERED: INSULIN (LEVEMIR) 100 UNITS/ML UNITS SQ SCH (11:55)
--- NOTE | 2019-05-10 12:13 | PN ---
Progress Note (short form) - Note Progress Note: Subjective: No fever or chills. has SOB , SOB has been the same x 1 week . not worse after blood transfusion . has no fever . NO cough . no PC . reports seeing blood after he wiped yesterday . received blood transfusion before Objective: Vital Signs: Last Vital Signs Temp Pulse Resp BP Pulse Ox 98.6 F 93 H 20 175/90 H 97 05/10/19 09:30 05/10/19 09:30 05/10/19 09:30 05/10/19 09:30 05/10/19 09:00 Laboratory Results - last 24 hr 05/09/19 05/09/19 05/09/19 08:14 13:10 17:36 WBC RBC Hgb Hct MCV MCH MCHC RDW Plt Count MPV POC Glucometer 255 46 Blood Type B POSITIVE Antibody Screen Negative Crossmatch See Detail 05/09/19 05/09/19 05/10/19 18:47 21:21 02:15 WBC 9.8 RBC 2.34 L Hgb 6.6 L* Hct 20.2 L MCV 86.3 MCH 28.1 MCHC 32.6 RDW 17.0 H Plt Count 317 D MPV 7.0 L POC Glucometer 133 134 Blood Type Antibody Screen Crossmatch 05/10/19 05/10/19 05:39 11:26 WBC RBC Hgb Hct MCV MCH MCHC RDW Plt Count MPV POC Glucometer 136 187 Blood Type Antibody Screen Crossmatch Physical Exam: NAD , awake, alert. MMM Cv: RRR, possible 2/6 Sm at LLSB Lungs: bibasilar crackles. scattered wheezing abd: soft, NT in epigastric area , ND , NL BS Ext: No edema. b/l BKA. no open wounds s neruo: EOMI, round pupils, no facial droop. tongeu at mid line strength 5/5 in RUE proximally and distally. 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 muscle atrophy in L hand muscles RLE, LLE : 5/5 hip flexion and knee flexion /extension Assessment/Plan: 63 y/o man with h/o ESRD on HD (TTS), IDDM, HTN, PVD s/p L BKA, Diabetic neuropathy, MRSA bacteremia , , R IJ thrombus, 10/14, R foot OM and necrotizing fasciitis , s/p R BKA 04/16, MSSA bacteremia , normocytic anemia , and other medical problems who presented due to anemia. 1- acute on chronci normocytic anemia : not clear about reason. could be due to renal disease. reported one time of blood perrectum yesterday but doubt GI bleed. need to r/o hemolysis - iron studies in 04/16 showed ACD . - check LDH and hapto - GI consult - heme consult - now receiving his 4th unit. will repeat . 2- SOB x 1 week. I doubt it is due to transfusion reaction , or from fluid overload as it has been present x 1 week and did not change after trasnfusion. - lungs have crackles on exam. - give 100 mg of IV lasix. - spoke to dr. Mancini, No HD today as he finished last one at [place] - get CTA to r/o PE given recent hospitalization . Ok to proceed with IV dye. d/ w Dr. Mancini 3- DM : He reports 8 uit sof HS levemir. meds were reconciled with him . - increae levemr. - cont SSI 4- h/o HTN: cont home meds . nifedipine, cardura. 5- chronic pain : cont methadone and lidocain patch DVT Px : Sq heparin Visit type - Emergency Visit Emergency Visit: Yes ED Registration Date: 05/09/19 Care time: The patient presented to the Emergency Department on the above date and was hospitalized for further evaluation of their emergent condition. - New Patient This patient is new to me today: Yes Date on this admission: 05/10/19 - Critical Care Critical Care patient: No
[2019-05-10] MEDS: PATIENT'S OWN MEDICATION (NON-FORMULARY) (Bismuth Tribromoph/Petrolatum [Xeroform Petrolat TP SCH (12:33)
[2019-05-10] MEDS: HEPARIN NA (PORCINE) 5,000 UNITS/ML 1ML VIAL SQ SCH ×2 (13:44→23:23)
[2019-05-10] MEDS ORDERED: PT OWN MED DRAWER 7, Y5N ONE ×3 (17:49→23:02)
--- NOTE | 2019-05-10 18:55 | PN ---
Progress Note, Physician History of Present Illness: Pt seen and examined at bedside. He is awake and alert. He feels that his breathing improved after lasix. He denies chest pain. - Current Medication List Current Medications: Active Medications Albuterol Sulfate (Ventolin 0.083% Nebulizer Soln -) 1 amp NEB Q4H PRN PRN Reason: SHORT OF BREATH/WHEEZING Albuterol Sulfate (Ventolin 0.083% Nebulizer Soln -) 1 amp NEB RQID [facility] Last Admin: 05/10/19 16:34 Dose: 1 amp Doxazosin Mesylate (Cardura -) 2 mg PO HS [facility] Last Admin: 05/09/19 22:51 Dose: 2 mg Fluticasone Propionate (Flonase -) 1 spray NS DAILY [facility] Last Admin: 05/10/19 09:31 Dose: 1 spray Gabapentin (Neurontin -) 300 mg PO TID [facility] Last Admin: 05/10/19 13:43 Dose: 300 mg Heparin Sodium (Porcine) (Heparin -) 5,000 unit SQ TID [facility] Last Admin: 05/10/19 13:44 Dose: 5,000 unit Sodium Chloride (Normal Saline -) 250 mls @ 3,000 mls/hr IV PRN PRN PRN Reason: Hypotension during Dialysis Stop: 05/10/19 23:52 Insulin Aspart (Novolog Vial Sliding Scale -) 1 vial SQ TIDAC [facility]; Protocol Last Admin: 05/10/19 17:27 Dose: Not Given Insulin Detemir (Levemir Vial) 8 units SQ [facility] Lidocaine (Lidoderm Patch -) 1 patch TP DAILY [facility] Last Admin: 05/10/19 09:31 Dose: 1 patch Methadone HCl (Dolophine -) 2.5 mg PO TID [facility] Last Admin: 05/10/19 13:43 Dose: 2.5 mg Miscellaneous (Lidoderm Patch Removal) 1 each MC DAILY@2200 [facility] Last Admin: 05/09/19 21:24 Dose: 1 each Multivit/Ca Carb/B Cmplx/FA/Prenat (Nephro-Guilherme -) 1 tablet PO DAILY [facility] Last Admin: 05/10/19 09:31 Dose: 1 tablet Nifedipine (Procardia Xl -) 60 mg PO DAILY [facility] Last Admin: 05/10/19 09:32 Dose: 60 mg Tiotropium [place] (Spiriva Respimat) 2 puff IH DAILY IGGY Last Admin: 05/10/19 09:36 Dose: 2 puff Trazodone HCl 400 mg/ (Trazodone HCl 50 mg) 450 mg PO HS IGG[facility] Last Admin: 05/09/19 22:51 Dose: 450 mg - Objective Vital Signs: Vital Signs Temperature 98.1 F 05/10/19 16:58 Pulse Rate 105 H 05/10/19 16:58 Respiratory Rate 20 05/10/19 16:58 Blood Pressure 151/81 05/10/19 16:58 O2 Sat by Pulse Oximetry (%) 97 05/10/19 09:00 Constitutional: Yes: Calm Eyes: Yes: Conjunctiva Clear HENT: Yes: Atraumatic Neck: Yes: Supple Cardiovascular: Yes: S1, S2 Respiratory: Yes: On Nasal O2 Gastrointestinal: Yes: Soft Genitourinary: Yes: WNL Extremities: Yes: Other (bilateral amputations) Neurological: Yes: Oriented Psychiatric: Yes: Oriented Labs: CBC, BMP 05/10/19 02:15 05/09/19 08:14 Problem List - Problems (1) Anemia Code(s): D64.9 - ANEMIA, UNSPECIFIED Qualifiers: (2) ESRD (end stage renal disease) Code(s): N18.6 - END STAGE RENAL DISEASE (3) Below-knee amputation Code(s): S88.119A - COMPLETE TRAUM AMP AT LEV BETW KN & ANKL, UNSP LOW LEG, INIT (4) COPD with emphysema Code(s): J43.9 - EMPHYSEMA, UNSPECIFIED Assessment/Plan Current Medications Generic Name Dose Route Start Last Admin Trade Name Freq PRN Reason Stop Dose Admin Albuterol Sulfate 1 amp 05/09/19 09:53 Ventolin 0.083% Nebulizer Soln - NEB Q4H PRN SHORT OF BREATH/WHEEZING Albuterol Sulfate 1 amp 05/09/19 20:00 05/10/19 16:34 Ventolin 0.083% Nebulizer Soln - NEB 1 amp RQID IGGY Administration Doxazosin Mesylate 2 mg 05/09/19 22:00 05/09/19 22:51 Cardura - PO 2 mg HS IGGY Administration Fluticasone Propionate 1 spray 05/09/19 10:00 05/10/19 09:31 Flonase - NS 1 spray DAILY IGGY Administration Gabapentin 300 mg 05/09/19 14:00 05/10/19 13:43 Neurontin - PO 300 mg TID IGGY Administration Heparin Sodium (Porcine) 5,000 unit 05/10/19 14:00 05/10/19 13:44 Heparin - SQ 5,000 unit TID IGGY Administration Sodium Chloride 250 mls @ 3,000 mls/hr 05/09/19 23:53 Normal Saline - IV 05/10/19 23:52 PRN PRN Hypotension during Dialysis Insulin Aspart 1 vial 05/09/19 11:00 05/10/19 17:27 Novolog Vial Sliding Scale - SQ Not Given TIDAC [facility] Protocol Insulin Detemir 8 units 05/10/19 11:55 Levemir Vial SQ HS IGG[facility] Lidocaine 1 patch 05/09/19 10:00 05/10/19 09:31 Lidoderm Patch - TP 1 patch DAILY IGGY Administration Methadone HCl 2.5 mg 05/09/19 14:00 05/10/19 13:43 Dolophine - PO 2.5 mg TID IGGY Administration Miscellaneous 1 each 05/09/19 22:00 05/09/19 21:24 Lidoderm Patch Removal MC 1 each DAILY@2200 IGG[facility] Administration Multivit/Ca Carb/B Cmplx/FA/Prenat 1 tablet 05/09/19 10:00 05/10/19 09:31 Nephro-Guilherme - PO 1 tablet DAILY IGGY Administration Nifedipine 60 mg 05/09/19 10:00 05/10/19 09:32 Procardia Xl - PO 60 mg DAILY IGGY Administration Tiotropium [place] 2 puff 05/10/19 10:00 05/10/19 09:36 Spiriva Respimat IH 2 puff DAILY IGGY Administration Trazodone HCl 400 mg/ 450 mg 05/09/19 22:15 05/09/19 22:51 Trazodone HCl 50 mg PO 450 mg HS IGGY Administration Impression 1. ESRD on HD 2. anemia 3. PVD 4. DM Plan - HD again tomorrow - prbc with HD - cont epogen - discussed with medical team - anemia workup - renal diet - will need anemia workup - check stool for occult blood - check iron studies
[2019-05-10] MEDS ORDERED: SODIUM CHLORIDE 250 ML IV PRN (18:56)
[2019-05-10 20:12] LABS: EOS % 5.9 % (0-4.5); HEMATOCRIT 25.7 % (35.4-49); HEMOGLOBIN 8.4 GM/dL (11.7-16.9); MCH 28.3 pg (25.7-33.7); MCHC 32.6 g/dl (32.0-35.9); MEAN CELL VOLUME 86.9 fl (80-96); MEAN PLT VOLUME 7.3 fl (7.5-11.1); MONO % 6.2 % (3.8-10.2); NEUT % 73.9 % (42.8-82.8); PLATELET COUNT 331 K/MM3 (134-434); RBC 2.96 M/mm3 (4.00-5.60); RDW 16.4 % (11.9-15.9); WHITE BLOOD COUNT 9.3 K/mm3 (4.0-10.0)
[2019-05-10 20:43] LABS: BLOOD UREA NITROGEN 48.5 mg/dL (7-18); CALCIUM 7.3 mg/dL (8.5-10.1); CREATININE 3.9 mg/dL (0.55-1.3); POTASSIUM 4.7 mmol/L (3.5-5.1)
[2019-05-10 20:44] LABS: IRON SERUM 32 ug/dL (50-175); TOTAL IRON BINDING CAPACITY 162 ug/dL (250-450)
[2019-05-10] MEDS: DOXAZOSIN MESYLATE 2 MG TABLET PO SCH (21:03)
[2019-05-10] MEDS ORDERED: traZODone HCL 100 MG TABLET (FP) ONE (23:01)
[2019-05-10] MEDS ORDERED: traZODone HCL 50 MG TABLET (FP) ONE (23:02)
[2019-05-10] MEDS: TRAZODONE HCL PO SCH (23:07)
[2019-05-11] MEDS ORDERED: hydrALAZINE HCL 10 MG TABLET PO ONE ×2 (00:30→03:49)
[2019-05-11] MEDS ORDERED: HEPARIN - 25,000 UNIT in SODIUM CHLORIDE 495 ML IV SCH (00:30)
[2019-05-11] MEDS ORDERED: HEPARIN NA (PORCINE) 5,000 UNITS/ML 1ML VIAL IVPUSH PRN ×2 (00:30)
--- NOTE | 2019-05-11 00:45 | PN ---
Progress Note (short form) - Note Progress Note: Call received from Imaging inside sales person stating that there is a "subsegmental peripheral right lung pulmonary embolism, no saddle embolus, interstitial edema , some infiltrates likely infection and a possibility for malignancy in the lungs, because the left heart border had suspicions for small cell carcinoma with mediastinal lymphadenopathy and sabino hepatis. There is concern for Lymphoma with recommendation for CT A/P (non-emergent). Pt. on assessment had shortness of breath without chest pain or palpitations. VS: 199/117 HR: 102 RR: 18 @100%. We will start Heparin gtt for PE and give Hydralazine 10mg PO for hypertensive Urgency. We will recheck BP in 45min and uptitrate as needed. We defer CT A/P w/ contrast to the primary team as this is non-emergent.
[2019-05-11] MEDS: ALBUTEROL SO4 0.083% IH SOL 2.5 MG/3 ML VIAL.NEB. NEB PRN (01:03)
[2019-05-11] MEDS ORDERED: hydrALAZINE HCL 20 MG/ML VIAL IVPUSH ONE ×2 (02:29→04:02)
[2019-05-11] MEDS: GABAPENTIN 300 MG CAPSULE PO SCH ×3 (06:32→22:30)
[2019-05-11] MEDS: METHADONE HCL 5 MG TABLET PO SCH ×3 (06:32→22:28)
[2019-05-11] MEDS: LIDOCAINE PATCH REMOVAL MC SCH ×2 (06:51→22:33)
[2019-05-11] MEDS: INSULIN SLIDING SCALE (NOVOLOG) 1 VIAL SQ SCH ×4 (06:52→17:24)
[2019-05-11] MEDS: ALBUTEROL SO4 0.083% IH SOL 2.5 MG/3 ML VIAL.NEB. NEB SCH ×3 (07:23→20:40)
[2019-05-11] MEDS ORDERED: APIXABAN 5 MG TABLET PO SCH (10:00)
[2019-05-11] MEDS: VITAMIN B COMP W-C 1 EA TABLET PO SCH (10:34)
[2019-05-11] MEDS: LIDOCAINE 5% TOPICAL PATCH TP SCH (10:34)
[2019-05-11] MEDS: FLUTICASONE PROP 0.05% 16 GM NASAL SPRAY NS SCH (10:35)
[2019-05-11] MEDS: TIOTROPIUM BROMIDE 2.5 MCG (SPIRIVA) RESPIMAT INHALER IH SCH (10:35)
[2019-05-11] MEDS: NIFEdipine E.R 60 MG TABLET PO SCH (10:36)
[2019-05-11] MEDS: NIFEdipine E.R. 30 MG TABLET PO ONE ×2 (11:02→11:23)
--- NOTE | 2019-05-11 12:38 | PN ---
Teaching Attending Note Name of Resident: Rivas Coon ATTENDING PHYSICIAN STATEMENT I saw and evaluated the patient. I reviewed the resident's note and discussed the case with the resident. I agree with the resident's findings and plan as documented. SUBJECTIVE: no fever or chills. SOB is better . lasix helped him yesterday. No CP . Events overnight were noted for CTA results coming back with + PE. He was started on heparin gtt. OBJECTIVE: NAD, awake, alert. MMM Cv: RRR, possible 2/6 Sm at LLSB Lungs: bibasilar crackles have diminished. Abd: soft, NTm nl BS Ext: No edema. b/l BKA. L stump with no open wounds. R leg in a brace Assessment/Plan: 63 y/o man with h/o ESRD on HD (TTS), IDDM, HTN, PVD s/p L BKA, Diabetic neuropathy, MRSA bacteremia , , R IJ thrombus, 10/14, R foot OM and necrotizing fasciitis , s/p R BKA 04/16, MSSA bacteremia , normocytic anemia , and other medical problems who presented due to anemia. 1- Acute on chronic normocytic anemia : Unlikely GI bleed. suspect worsening anemia frm chronic disease, also need to r/o a component of hemolysis given his poor response toransusion initially and given the findings on CT suspicious for lymphoma/cancer - Refused labs this am , so LDh and hapto are pending - cont to monitor HB - appreciate heme input 2- L sided PE:On prelim CT scan . hemodynamically stable. - hepain gtt was started last night. patient refused PTT this am. He is a hard stick and his arm hurts. other options for AC were d/w him. can't use lovenox. heparin bridge to coumadin was d/w him , but requires frequent PTT checks. Eliquis , although not studied thoroughly in ESRD patients, manufacture indicates safety in HD patients. He understands that Eliquis use might be risky ( due to possible risk fro bleed ) , also he understands that coumadin is safer. Due to the risk for non compliance with PTT draws, and risk fro expansion of DVT/PE eliquis is the best choice for him. - start eliquis 10 mg BID x 7 days then 5 BID. - spoke to pharmacist who indicated safety - echo - follow final CT read 3- DM :with hypoglycemia this am. - change levemir to 3 units, and give with supper time. - loose SSI coverage and no HS coverage 4- h/o HTN: cont home meds . nifedipine, cardura. will increase nifedipine to 90. 5- Lung /mediastinal mass: ? lymphoma vs Lung cancer. bx might be a problems while being actively anticoagulated - pulmonary consult - will d/w heme/onc 6-Chronic pain: cont methadone and lidocaine patch 7- ESRD: for HD today . DVT Px: on eliquis now.
[2019-05-11] MEDS ORDERED: EPOETIN ALFA 2,000 UNIT/1 ML VIAL IVPUSH ONE (13:15)
[2019-05-11] MEDS ORDERED: SODIUM CHLORIDE 250 ML IV PRN (13:15)
--- NOTE | 2019-05-11 13:15 | PN ---
Progress Note (short form) - Note Progress Note: Renal follow up for ESRD on HD Seen and examined at the bedside reports mild persistant shortness of breath no chest pain, fever, chills, N/V s/p dialysis on Saturday Vital Signs Temperature 98.4 F 05/11/19 09:00 Pulse Rate 94 H 05/11/19 11:58 Respiratory Rate 05/11/19 11:58 Blood Pressure 160/90 05/11/19 11:58 O2 Sat by Pulse Oximetry (%) 95 05/11/19 09:00 Intake & Output 05/08/19 05/09/19 05/10/19 05/11/19 23:59 23:59 23:59 23:59 Intake Total 320 2550 400 Output Total 5300 200 Balance 320 -2750 200 Weight 79 kg 79.832 kg 80.739 kg NAD awake and alert neck supple, no JVD RRR Dec BS, + rales soft NT/ND no LE edema. + bilateral BKA CBC, BMP 05/10/19 18:41 05/10/19 18:41 Current Medications Albuterol Sulfate (Ventolin 0.083% Nebulizer Soln -) 1 amp NEB Q4H PRN PRN Reason: SHORT OF BREATH/WHEEZING Last Admin: 05/11/19 01:03 Dose: 1 amp Albuterol Sulfate (Ventolin 0.083% Nebulizer Soln -) 1 amp NEB RQID [facility] Last Admin: 05/11/19 11:40 Dose: 1 amp Apixaban (Eliquis -) 10 mg PO BID [facility] Stop: 05/18/19 09:59 Last Admin: 05/11/19 11:22 Dose: 10 mg Doxazosin Mesylate (Cardura -) 2 mg PO HS [facility] Last Admin: 05/10/19 21:03 Dose: 2 mg Epoetin Joe (Epogen -) 12,000 unit IVPUSH ONCE ONE Stop: 05/11/19 13:16 Fluticasone Propionate (Flonase -) 1 spray NS DAILY [facility] Last Admin: 05/11/19 10:35 Dose: 1 spray Gabapentin (Neurontin -) 300 mg PO TID [facility] Last Admin: 05/11/19 06:32 Dose: 300 mg Sodium Chloride (Normal Saline -) 250 mls @ 3,000 mls/hr IV PRN PRN PRN Reason: Hypotension during Dialysis Stop: 05/11/19 18:56 Insulin Aspart (Novolog Vial Sliding Scale -) 1 vial SQ TIDAC [facility]; Protocol Last Admin: 05/11/19 11:22 Dose: Not Given Insulin Detemir (Levemir Vial) 3 units SQ HS [facility] Lidocaine (Lidoderm Patch -) 1 patch TP DAILY [facility] Last Admin: 05/11/19 10:34 Dose: 1 patch Methadone HCl (Dolophine -) 2.5 mg PO TID [facility] Last Admin: 05/11/19 06:32 Dose: 2.5 mg Miscellaneous (Lidoderm Patch Removal) 1 each MC DAILY@2200 [facility] Last Admin: 05/11/19 06:51 Dose: 1 each Multivit/Ca Carb/B Cmplx/FA/Prenat (Nephro-Guilherme -) 1 tablet PO DAILY [facility] Last Admin: 05/11/19 10:34 Dose: 1 tablet Nifedipine (Procardia Xl -) 60 mg PO DAILY [facility] Last Admin: 05/11/19 10:36 Dose: 60 mg Tiotropium [place] (Spiriva Respimat) 2 puff IH DAILY [facility] Last Admin: 05/11/19 10:35 Dose: 2 puff Trazodone HCl 400 mg/ (Trazodone HCl 50 mg) 450 mg PO HS [facility] Last Admin: 05/10/19 23:07 Dose: 450 mg 63 year old gentleman with history of ESRD on HD, DM, hypertension, PVD s/p bilateral BKA presented from HD unit with worsening anemia and shortness of breath. 1. ESRD on HD 2. Acute on Chronic anemia (negative stool occult blood, + recent infection may have lead to ADRIAN resistance) 3. Suspected PE 4. Fluid overload For dialysis today with aggressive UF as tolerated will also have dialysis tomorrow. s/p PRBC transfusion, Hgb improved to > 8 today. Will check CBC today with HD. ? actual PE, official CT read showed no PE. 1.2L fluid restriction Thank you Miguel Jansen DO
[2019-05-11 13:51] LABS: BASO % 0.7 % (0-2.0); EOS % 6.7 % (0-4.5); HEMATOCRIT 25.3 % (35.4-49); HEMOGLOBIN 8.5 GM/dL (11.7-16.9); LYMPH % 9.1 % (8-40); MCH 28.9 pg (25.7-33.7); MCHC 33.6 g/dl (32.0-35.9); MEAN PLT VOLUME 7.1 fl (7.5-11.1); MONO % 6.4 % (3.8-10.2); NEUT % 77.1 % (42.8-82.8); PLATELET COUNT 308 K/MM3 (134-434); RBC 2.94 M/mm3 (4.00-5.60); RDW 16.6 % (11.9-15.9); RETICULOCYTES 1.58 % (0.5-1.5); WHITE BLOOD COUNT 10.1 K/mm3 (4.0-10.0)
[2019-05-11 14:13] LABS: HEMATOCRIT 24.2 % (35.4-49); HEMOGLOBIN 8.1 GM/dL (11.7-16.9); MCH 28.6 pg (25.7-33.7); MCHC 33.5 g/dl (32.0-35.9); MEAN CELL VOLUME 85.4 fl (80-96); MEAN PLT VOLUME 6.9 fl (7.5-11.1); PLATELET COUNT 280 K/MM3 (134-434); RBC 2.83 M/mm3 (4.00-5.60); RDW 16.5 % (11.9-15.9); WHITE BLOOD COUNT 9.8 K/mm3 (4.0-10.0)
[2019-05-11 14:19] LABS: BLOOD UREA NITROGEN 57.4 mg/dL (7-18); CALCIUM 7.7 mg/dL (8.5-10.1); CREATININE 4.3 mg/dL (0.55-1.3); MAGNESIUM 1.9 mg/dL (1.8-2.4); PHOSPHOROUS 5.2 mg/dL (2.5-4.9); POTASSIUM 4.8 mmol/L (3.5-5.1)
[2019-05-11 14:26] LABS: INR 1.38 (0.83-1.09); PROTHROMBIN TIME (PATIENT) 16.3 SEC (9.7-13.0)
--- NOTE | 2019-05-11 14:27 | CON.PULM ---
Consult Consult Specialty:: PULMONARY Referred by:: Dr Hendrix Reason for Consultation:: r/o PE - History of Present Illness Chief Complaint: shortness of breath History of Present Illness: 63yo male with h/o HTN, DM, ESRD on HD, h/o osteomyelitis, h/o bilateral BKAs who was sent from the correction for worsening shortness of breath and anemia. Noted to have Hgb 6.4 s/p 4 units PRBC transfusions. CTA chest done with the overnight reading as "subsegmental peripheral right lung pulmonary embolism, no saddle embolus, interstitial edema, some infiltrates likely infection and a possibility for malignancy in the lungs, because the left heart border had suspicions for small cell carcinoma with mediastinal lymphadenopathy and sabino hepatis." Started on empiric anticoagulation. Official read did not show evidence of central PEs. He denies chest pain or palpitations. + nonproductive cough without wheezing. He reports feeling abdominal distention recently as well. Reports temporary improvement with lasix, currently being dialyzed. - History Source History Provided By: Patient, Medical Record Limitations to Obtaining History: No Limitations - Past Medical History [employer]: Yes: Peripheral Neuropathy Cardio/Vascular: Yes: HTN Gastrointestinal: Yes: GERD Renal/: Yes: Renal Failure, Renal Inusuff, Hemodialysis Infectious Disease: Yes: Other (osteomyelitis) Psych: Yes: Depression Musculoskeletal: Yes: Other (chronic pain) Rheumatology: Yes: Other (history of osteomyelitis) Endocrine: Yes: Diabetes Mellitus - Past Surgical History Past Surgical History: Yes: Amputation (transmetatarsal of Left foot) - Alcohol/Substance Use Hx Alcohol Use: No Number of Drinks Daily: 2 (weekends) History of Substance Use: reports: None - Smoking History Smoking history: Former smoker Have you smoked in the past 12 months: Yes Aproximately how many cigarettes per day: 1 If you are a former smoker, when did you quit?: FEB 2019 - Social History Usual Living Arrangement: Alone ADL: Support Services History of Recent Travel: No Home Medications - Allergies Allergies/Adverse Reactions: Allergies Allergy/AdvReac Type Severity Reaction Status Date / Time shellfish derived Allergy Severe "HIVES" Verified 05/09/19 08:51 No Known Drug Allergies Allergy Verified 05/09/19 08:51 - Home Medications Home Medications: Ambulatory Orders Fluticasone Prop 0.05% Nasal [Flonase -] 1 - 2 spray NS DAILY #1 spray.pump Lidocaine 5% Patch [Lidoderm -] 1 patch TP DAILY patch 10/06/17 Lidocaine Patch Removal [Lidoderm Patch Removal] 1 each MC DAILY@2200 each 02/13 traZODone HCL [Desyrel -] 450 mg PO HS 04/07/19 Methadone [Dolophine -] 2.5 mg PO TID 04/16/19 Doxazosin Mesylate [Cardura -] 2 mg PO HS #30 tablet 04/20/19 Gabapentin [Neurontin -] 300 mg PO TID #90 capsule 04/20/19 Insulin Sliding Scale [Novolog Vial Sliding Scale -] 1 vial SQ TIDAC #1 vial Nifedipine ER [Procardia XL -] 60 mg PO DAILY #30 tab.er.24 04/20/19 Vitamin B Comp W-C [Nephro-Guilherme -] 1 tablet PO DAILY #30 tablet 04/20/19 Insulin (Levemir) [Levemir Vial] 12 unit SQ HS 05/10/19 Nifedipine ER [Procardia Xl -] 90 mg PO DAILY 05/11/19 Review of Systems - Review of Systems Constitutional: reports: Weakness. denies: Chills, Fever Eyes: denies: Recent Change in Vision HENT: denies: Nasal Congestion, Throat Pain Neck: denies: Stiffness, Tenderness Cardiovascular: reports: Shortness of Breath. denies: Chest Pain, Edema, Palpitations Respiratory: reports: Cough, SOB, SOB on Exertion. denies: Hemoptysis, Wheezing Gastrointestinal: reports: Bloating. denies: Nausea, Vomiting Genitourinary: denies: Dysuria, Hematuria Neurological: denies: Headache Endocrine: denies: Unexplained Weight Loss Physical Exam Vital Sings: Vital Signs Temperature 98.2 F 05/11/19 12:53 Pulse Rate 96 H 05/11/19 13:30 Respiratory Rate 18 05/11/19 13:30 Blood Pressure 150/79 05/11/19 13:30 O2 Sat by Pulse Oximetry (%) 95 05/11/19 09:00 Constitutional: Yes: Calm Eyes: Yes: Conjunctiva Clear, EOM Intact HENT: Yes: Atraumatic, Normocephalic Neck: Yes: Supple, Trachea Midline Cardiovascular: Yes: Regular Rate and Rhythm Respiratory: Yes: Rhonchi ...Clubbing: No Gastrointestinal: Yes: Soft, Distention Edema: No Neurological: Yes: Alert, Oriented Labs: CBC, BMP 05/11/19 13:30 05/11/19 13:00 ABG Results ABG pH 7.36 (7.35-7.45) 05/09/19 08:44 ABG pCO2 at Pt Temp 41.2 mmHg (35-45) 05/09/19 08:44 ABG pO2 at Pt Temp 95.7 mmHg (80-100) 05/09/19 08:44 ABG HCO3 22.9 mmol/L (22-27) 05/09/19 08:44 ABG O2 Sat (Measured) 96.4 % (95-98) 05/09/19 08:44 ABG O2 Content 7.5 % vol 05/09/19 08:44 ABG Base Excess -1.7 meq/l (-2-2) 05/09/19 08:44 Imaging - Results Chest X-ray: Report Reviewed, Image Reviewed Cat Scan: Report Reviewed, Image Reviewed (cardiomegaly, bilateral effusions, pulmonary vascular congestion, left sided atelectasis, mediastinal lymphadenopathy) Assessment/Plan Volume Overload Acute on Chronic Diastolic Heart Failure Anemia s/p 4 unit PRBC transfusion r/o Transfusion Associated Circulatory Overload ESRD on HD HTN DM Bilateral BKA h/o Osteomyelitis - reviewed CT chest imaging, poor timing of contrast bolus but no obvious filling defects, do not suspect PE at this time - CT chest findings and clinical exam more consistent with volume overload, mediastinal lymphadenopathy and sabino hepatis can be seen with decompensated heart failure or volume overload/TACO - do not suspect lung mass, more likely atelectasis - will need f/u CT chest in 6-8 weeks when euvolemic - HD per renal with ultrafiltration, may need a lower dry weight - O2 to keep Spo2 >90% - can d/c anticoagulation - inhaled bronchodilators as needed - DVT prophylaxis Thank you for this consult Raymond Hernandez MD
[2019-05-11 14:29] LABS: ACTIVATED PTT 48.2 SECONDS (25.2-36.5)
--- NOTE | 2019-05-11 18:01 | PN ---
Physical Exam: SUBJECTIVE: Patient seen and examined at bedside. He is upset that he has to have multiple blood draws. Otherwise no SOB, CP, NVFD. OBJECTIVE: Vital Signs Temp Pulse Resp BP Pulse Ox 98.2 F 82 18 144/62 95 05/11/19 12:53 05/11/19 15:41 05/11/19 15:41 05/11/19 15:41 05/11/19 09:00 GENERAL: AOx3, in no acute distress. HEAD: NCAT EYES: ROBERTH, EOMI, conjunctiva clear. ENT: Ears normal, nares patent, oropharynx clear without exudates. Moist mucous membranes. NECK: Normal range of motion, supple without lymphadenopathy, JVD, or masses. LUNGS: Crackls at bases BL. No wheezes, and no crackles. No accessory muscle use. HEART: RRR s1 s2 ABDOMEN: Soft, BS present in all 4 quadrants, non-distended, no JVD, MUSCULOSKELETAL: No bony deformities or tenderness. No CVA tenderness. UPPER EXTREMITIES: LEFT arm AV fistula. 2+ pulses, warm, well-perfused. No cyanosis. No clubbing. No peripheral edema. LOWER EXTREMITIES: BL BKA NEUROLOGICAL: RIGHT 5/5, LEFT 4/5 strength. Cranial nerves II-XII intact. Normal speech. Gait not appreciated. PSYCHIATRIC: Not very cooperative and argumentative. Good eye contact. Appropriate mood and affect. SKIN: Warm, dry, normal turgor, no rashes or lesions noted, normal capillary refill. Laboratory Results - last 24 hr 05/10/19 05/10/19 05/10/19 02:15 18:41 18:41 WBC 9.3 RBC 2.96 L Hgb 8.4 L Hct 25.7 L D MCV 86.9 MCH 28.3 MCHC 32.6 RDW 16.4 H Plt Count 331 MPV 7.3 L Absolute Neuts (auto) 6.9 Neutrophils % 73.9 Lymphocytes % 13.0 D Monocytes % 6.2 Eosinophils % 5.9 H D Basophils % 1.0 Nucleated RBC % 0 Retic Count PT with INR INR PTT (Actin FS) D-Dimer Sodium 135 L Potassium 4.7 Chloride 101 Carbon Dioxide 27 Anion Gap 7 L BUN 48.5 H Creatinine 3.9 H Est GFR (CKD-EPI)AfAm 17.83 Est GFR (CKD-EPI)NonAf 15.39 POC Glucometer Random Glucose 284 H Calcium 7.3 L Phosphorus Magnesium Iron TIBC Iron Saturation Unsaturated IBC Ferritin LD Total Hep Bs Antigen Negative Hep C Ab Diagnostic <0.1 05/10/19 05/10/19 05/11/19 18:41 20:26 01:30 WBC RBC Hgb Hct MCV MCH MCHC RDW Plt Count MPV Absolute Neuts (auto) Neutrophils % Lymphocytes % Monocytes % Eosinophils % Basophils % Nucleated RBC % Retic Count PT with INR INR PTT (Actin FS) 48.5 H D-Dimer Sodium Potassium Chloride Carbon Dioxide Anion Gap BUN Creatinine Est GFR (CKD-EPI)AfAm Est GFR (CKD-EPI)NonAf POC Glucometer 224 Random Glucose Calcium Phosphorus Magnesium Iron 32 L TIBC 162 L Iron Saturation 19 Unsaturated IBC 130 L Ferritin LD Total Hep Bs Antigen Hep C Ab Diagnostic 05/11/19 05/11/19 05/11/19 06:35 07:30 11:07 WBC RBC Hgb Hct MCV MCH MCHC RDW Plt Count MPV Absolute Neuts (auto) Neutrophils % Lymphocytes % Monocytes % Eosinophils % Basophils % Nucleated RBC % Retic Count PT with INR INR PTT (Actin FS) D-Dimer Sodium Potassium Chloride Carbon Dioxide Anion Gap BUN Creatinine Est GFR (CKD-EPI)AfAm Est GFR (CKD-EPI)NonAf POC Glucometer 37 68 166 Random Glucose Calcium Phosphorus Magnesium Iron TIBC Iron Saturation Unsaturated IBC Ferritin LD Total Hep Bs Antigen Hep C Ab Diagnostic 05/11/19 05/11/19 05/11/19 13:00 13:00 13:30 WBC 10.1 H RBC 2.94 L Hgb 8.5 L Hct 25.3 L MCV 86.0 MCH 28.9 MCHC 33.6 RDW 16.6 H Plt Count 308 MPV 7.1 L Absolute Neuts (auto) 7.8 Neutrophils % 77.1 Lymphocytes % 9.1 D Monocytes % 6.4 Eosinophils % 6.7 H Basophils % 0.7 Nucleated RBC % 0 Retic Count 1.58 H D PT with INR INR PTT (Actin FS) D-Dimer 1438 H Sodium 135 L Potassium 4.8 Chloride 101 Carbon Dioxide 26 Anion Gap 8 BUN 57.4 H Creatinine 4.3 H Est GFR (CKD-EPI)AfAm 15.85 Est GFR (CKD-EPI)NonAf 13.67 POC Glucometer Random Glucose 204 H Calcium 7.7 L Phosphorus 5.2 H Magnesium 1.9 Iron 24 L TIBC Iron Saturation Unsaturated IBC Ferritin 1311.9 H LD Total 177 Hep Bs Antigen Hep C Ab Diagnostic 05/11/19 05/11/19 05/11/19 13:30 13:30 16:48 WBC 9.8 RBC 2.83 L Hgb 8.1 L Hct 24.2 L MCV 85.4 MCH 28.6 MCHC 33.5 RDW 16.5 H Plt Count 280 MPV 6.9 L Absolute Neuts (auto) Neutrophils % Lymphocytes % Monocytes % Eosinophils % Basophils % Nucleated RBC % Retic Count PT with INR 16.30 H INR 1.38 H PTT (Actin FS) 48.2 H D-Dimer Sodium Potassium Chloride Carbon Dioxide Anion Gap BUN Creatinine Est GFR (CKD-EPI)AfAm Est GFR (CKD-EPI)NonAf POC Glucometer 266 Random Glucose Calcium Phosphorus Magnesium Iron TIBC Iron Saturation Unsaturated IBC Ferritin LD Total Hep Bs Antigen Hep C Ab Diagnostic Active Medications Albuterol Sulfate (Ventolin 0.083% Nebulizer Soln -) 1 amp NEB Q4H PRN PRN Reason: SHORT OF BREATH/WHEEZING Last Admin: 05/11/19 01:03 Dose: 1 amp Albuterol Sulfate (Ventolin 0.083% Nebulizer Soln -) 1 amp NEB RQID [facility] Last Admin: 05/11/19 11:40 Dose: 1 amp Doxazosin Mesylate (Cardura -) 2 mg PO HS [facility] Last Admin: 05/10/19 21:03 Dose: 2 mg Fluticasone Propionate (Flonase -) 1 spray NS DAILY [facility] Last Admin: 05/11/19 10:35 Dose: 1 spray Gabapentin (Neurontin -) 300 mg PO TID [facility] Last Admin: 05/11/19 14:00 Dose: Not Given Sodium Chloride (Normal Saline -) 250 mls @ 3,000 mls/hr IV PRN PRN PRN Reason: Hypotension during Dialysis Stop: 05/11/19 18:56 Sodium Chloride (Normal Saline -) 250 mls @ 3,000 mls/hr IV PRN PRN PRN Reason: Hypotension during Dialysis Stop: 05/12/19 13:15 Insulin Aspart (Novolog Vial Sliding Scale -) 1 vial SQ TIDAC [facility]; Protocol Last Admin: 05/11/19 17:24 Dose: Not Given Insulin Detemir (Levemir Vial) 3 units SQ HS [facility] Lidocaine (Lidoderm Patch -) 1 patch TP DAILY [facility] Last Admin: 05/11/19 10:34 Dose: 1 patch Methadone HCl (Dolophine -) 2.5 mg PO TID [facility] Last Admin: 05/11/19 14:30 Dose: 2.5 mg Miscellaneous (Lidoderm Patch Removal) 1 each MC DAILY@2200 [facility] Last Admin: 05/11/19 06:51 Dose: 1 each Multivit/Ca Carb/B Cmplx/FA/Prenat (Nephro-Guilherme -) 1 tablet PO DAILY [facility] Last Admin: 05/11/19 10:34 Dose: 1 tablet Nifedipine (Procardia Xl -) 60 mg PO DAILY [facility] Last Admin: 05/11/19 10:36 Dose: 60 mg Tiotropium [place] (Spiriva Respimat) 2 puff IH DAILY [facility] Last Admin: 05/11/19 10:35 Dose: 2 puff Trazodone HCl 400 mg/ (Trazodone HCl 50 mg) 450 mg PO [facility] Last Admin: 05/10/19 23:07 Dose: 450 mg ASSESSMENT/PLAN: 63 y/o male PMH HTN, insulin treated DM, ESRD (TTS), PVD s/p BL BKA (2019) and MRSA bacteremia brought in for anemia. Overnight chest CT suspicous of blood clot but not likely given final read. # Possible PE - Overnight read of, "subsegmental peripheral right lung pulmonary embolism, no saddle embolus, interstitial edema, some infiltrates likely infection and a possibility for malignancy in the lungs, because the left heart border had suspicions for small cell carcinoma with mediastinal lymphadenopathy and sabino hepatis. There is concern for Lymphoma with recommendation for CT A/P (non- emergent)." - Pt hemodynamically stable - D dimer 1,438 - Pt elected for PO anticoag with Zabrina after lengthy discussion (please see attending note) - Pulm consulted: Do not suspect PE at this time. CT chest findings and clinical exam more consistent with volume overload, mediastinal lymphadenopathy and sabino hepatis can be seen with decompensated heart failure or volume overload/TACO. Do not suspect lung mass, more likely atelectasis. Can d/c anticoagulation - US of LE to r/o DVT. - F/u CT in 6-8 weeks # Lung/mediastinal mass - Lymphoma vs lung cancer - Pulmonary consult noted as above; more likely atelectasis - F/u heme/onc recommendation # E coli in urine - Consult ID given MRSA # Normocytic anemia - Repeat afternoon CBC demonstrates stable h/h - Most likely ACD however poss hemolysis given low Hb despite transfusion - LDH normal and haptoglobin pending - Heme/onc consulted: Severe ACD and iron studies s/o chronic disease; stool occult is negative # ESRD - Renal consulted: Dialysis tomorrow. - S/p PRBC transfusion, Hgb improved to > 8 today. Will check CBC today with HD. - 1.2L fluid restriction # Chronic pain - Methadone 2.5 mg PO TID - Lidocaine patch # DM - Hold home regimen - ISS ACHS with gentle modification/please see sliding scale instructions - Insulin Levemir lowered to 3 units with supper - Gabapentin 300 mg PO TID # HTN - Cont. curent home regimen: Nifedipine ER 90 mg PO QD (changed from 60 mg), doxazosin 2 mg PO HS # HLD - Cont. curent home regimen: # F/E/N - PO; 1.2L fluid restriction - Cont. to monitor - Low sodium, diabetic diet # DVT prophylaxis - Heparin SQ starting tomorrow given above # Disposition - Admit to observation Rivas Coon MD Visit type - Emergency Visit Emergency Visit: No - New Patient This patient is new to me today: Yes Date on this admission: 05/11/19 - Critical Care Critical Care patient: No ATTENDING PHYSICIAN STATEMENT I saw and evaluated the patient. I reviewed the resident's note and discussed the case with the resident. I agree with the resident's findings and plan as documented. SUBJECTIVE: OBJECTIVE: ASSESSMENT AND PLAN:
--- NOTE | 2019-05-11 18:08 | PN ---
Progress Note (short form) - Note Progress Note: Patient seen and examined Feels better Last Vital Signs Temp Pulse Resp BP Pulse Ox 98.2 F 82 18 144/62 95 05/11/19 12:53 05/11/19 15:41 05/11/19 15:41 05/11/19 15:41 05/11/19 09:00 Cor: RSR, No murmurs, No gallops Lungs: Clear to P&A Abd: Soft, Normal bowel sounds, No organomegaly Ext:No significant edema Labs/Meds reviewed A/P Volume Overload Acute on Chronic Diastolic Heart Failure Anemia s/p 4 unit PRBC transfusion ESRD on HD HTN DM Bilateral BKA h/o Osteomyelitis - CT chest findings and clinical exam more consistent with volume overload, mediastinal lymphadenopathy and sabino hepatis can be seen with decompensated heart failure or volume overload/TACO - will need f/u CT chest when euvolemic - no evidence of PE-- d/c eliquis Severe anemia of chronic disease iron studies s/o chronic disease stool occult is negative urine cx with e.coli--- request ID consult
[2019-05-11] MEDS ORDERED: traZODone HCL 50 MG TABLET (FP) ONE (22:09)
[2019-05-11] MEDS ORDERED: traZODone HCL 100 MG TABLET (FP) ONE (22:09)
[2019-05-11] MEDS: TRAZODONE HCL PO SCH (22:29)
[2019-05-11] MEDS: INSULIN (LEVEMIR) 100 UNITS/ML UNITS SQ SCH (22:31)
[2019-05-11] MEDS: DOXAZOSIN MESYLATE 2 MG TABLET PO SCH (22:32)
[2019-05-12] MEDS: GABAPENTIN 300 MG CAPSULE PO SCH ×3 (05:21→21:57)
[2019-05-12] MEDS: METHADONE HCL 5 MG TABLET PO SCH ×3 (05:21→21:58)
[2019-05-12] MEDS ORDERED: LABETALOL HCL 100 MG TABLET (FP) PO ONE (05:50)
[2019-05-12] MEDS: INSULIN SLIDING SCALE (NOVOLOG) 1 VIAL SQ SCH ×3 (07:19→18:40)
[2019-05-12] MEDS: ALBUTEROL SO4 0.083% IH SOL 2.5 MG/3 ML VIAL.NEB. NEB SCH ×4 (07:51→20:05)
[2019-05-12] MEDS ORDERED: SODIUM CHLORIDE 250 ML IV PRN (09:27)
--- NOTE | 2019-05-12 10:46 | PN ---
Progress Note (short form) - Note Progress Note: PULMONARY Still some shortness of breath but appears less tachypneic. No fevers recorded. Vital Signs Period Temp Pulse Resp BP Sys/Gutierrez Pulse Ox Last 24 Hr 97.9 F-98.2 F 60-113 18-22 135-174/60-115 96 Gen: mildly tachypneic at rest Heart: RRR Lung: scattered rhonchi Abd: soft, nontender Ext: bilateral BKA CBC, BMP 05/11/19 13:30 05/11/19 13:00 Active Medications Albuterol Sulfate (Ventolin 0.083% Nebulizer Soln -) 1 amp NEB Q4H PRN PRN Reason: SHORT OF BREATH/WHEEZING Last Admin: 05/11/19 01:03 Dose: 1 amp Albuterol Sulfate (Ventolin 0.083% Nebulizer Soln -) 1 amp NEB RQID [facility] Last Admin: 05/12/19 07:51 Dose: 1 amp Doxazosin Mesylate (Cardura -) 2 mg PO HS [facility] Last Admin: 05/11/19 22:32 Dose: 2 mg Fluticasone Propionate (Flonase -) 1 spray NS DAILY [facility] Last Admin: 05/11/19 10:35 Dose: 1 spray Gabapentin (Neurontin -) 300 mg PO TID [facility] Last Admin: 05/12/19 05:21 Dose: 300 mg Sodium Chloride (Normal Saline -) 250 mls @ 3,000 mls/hr IV PRN PRN PRN Reason: Hypotension during Dialysis Stop: 05/12/19 13:15 Sodium Chloride (Normal Saline -) 250 mls @ 3,000 mls/hr IV PRN PRN PRN Reason: Hypotension during Dialysis Stop: 05/13/19 09:27 Insulin Aspart (Novolog Vial Sliding Scale -) 1 vial SQ TIDAC [facility]; Protocol Last Admin: 05/12/19 07:19 Dose: Not Given Insulin Detemir (Levemir Vial) 3 units SQ [facility] Last Admin: 05/11/19 22:31 Dose: 3 units Lidocaine (Lidoderm Patch -) 1 patch TP DAILY [facility] Last Admin: 05/11/19 10:34 Dose: 1 patch Methadone HCl (Dolophine -) 2.5 mg PO TID [facility] Last Admin: 05/12/19 05:21 Dose: 2.5 mg Miscellaneous (Lidoderm Patch Removal) 1 each MC DAILY@2200 [facility] Last Admin: 05/11/19 22:33 Dose: 1 each Multivit/Ca Carb/B Cmplx/FA/Prenat (Nephro-Guilherme -) 1 tablet PO DAILY [facility] Last Admin: 05/11/19 10:34 Dose: 1 tablet Nifedipine (Procardia Xl -) 60 mg PO DAILY [facility] Last Admin: 05/11/19 10:36 Dose: 60 mg Tiotropium [place] (Spiriva Respimat) 2 puff IH DAILY [facility] Last Admin: 05/11/19 10:35 Dose: 2 puff Trazodone HCl 400 mg/ (Trazodone HCl 50 mg) 450 mg PO HS [facility] Last Admin: 05/11/19 22:29 Dose: 450 mg A/P Volume Overload Acute on Chronic Diastolic Heart Failure Anemia s/p 4 unit PRBC transfusion r/o Transfusion Associated Circulatory Overload ESRD on HD HTN DM Bilateral BKA h/o Osteomyelitis - CT chest findings and clinical exam more consistent with volume overload, mediastinal lymphadenopathy and sabino hepatis can be seen with decompensated heart failure or volume overload/TACO - do not suspect lung mass, more likely atelectasis - will need f/u CT chest in 6-8 weeks when euvolemic - HD per renal with ultrafiltration, likely needs a lower dry weight - O2 to keep Spo2 >90% - inhaled bronchodilators as needed - DVT prophylaxis
[2019-05-12] MEDS ORDERED: PT OWN MED DRAWER 7, Y5N ONE ×2 (10:50→17:02)
[2019-05-12] MEDS: NIFEdipine E.R 60 MG TABLET PO SCH (10:53)
[2019-05-12] MEDS: LIDOCAINE 5% TOPICAL PATCH TP SCH (10:53)
[2019-05-12] MEDS: VITAMIN B COMP W-C 1 EA TABLET PO SCH (10:53)
[2019-05-12] MEDS: FLUTICASONE PROP 0.05% 16 GM NASAL SPRAY NS SCH (10:55)
[2019-05-12] MEDS: TIOTROPIUM BROMIDE 2.5 MCG (SPIRIVA) RESPIMAT INHALER IH SCH (10:56)
[2019-05-12] MEDS: BACITRACIN 15 GM TUBE TOPICAL OINTMENT TP SCH ×2 (11:57→21:57)
[2019-05-12] MEDS ORDERED: NIFEdipine E.R. 30 MG TABLET PO ONE (13:15)
--- NOTE | 2019-05-12 14:45 | PN ---
Progress Note (short form) - Note Progress Note: Renal follow up for ESRD on HD Seen and examined at the bedside awake and alert offers no acute complaints shortness of breath is improved no chest pain, fever, chills s/p abridged HD yesterday with 1.9L UF Vital Signs Temperature 97.7 F 05/12/19 14:11 Pulse Rate 76 05/12/19 14:11 Respiratory Rate 22 H 05/12/19 14:11 Blood Pressure 126/70 05/12/19 14:11 O2 Sat by Pulse Oximetry (%) 95 05/12/19 09:00 Intake & Output 05/09/19 05/10/19 05/11/19 05/12/19 23:59 23:59 23:59 23:59 Intake Total 320 2550 1177 480 Output Total 5300 2550 Balance 320 -0850 -1373 480 Weight 79 kg 79.832 kg 80.739 kg 80.059 kg NAD awake and alert neck supple, no JVD RRR Dec BS, + rales soft NT/ND no LE edema. + bilateral BKA CBC, BMP 05/11/19 13:30 05/11/19 13:00 Current Medications Albuterol Sulfate (Ventolin 0.083% Nebulizer Soln -) 1 amp NEB Q4H PRN PRN Reason: SHORT OF BREATH/WHEEZING Last Admin: 05/11/19 01:03 Dose: 1 amp Albuterol Sulfate (Ventolin 0.083% Nebulizer Soln -) 1 amp NEB RQID [facility] Last Admin: 05/12/19 11:49 Dose: 1 amp Bacitracin (Bacitracin -) 1 applic TP BID [facility] Last Admin: 05/12/19 11:57 Dose: 1 applic Doxazosin Mesylate (Cardura -) 2 mg PO HS [facility] Last Admin: 05/11/19 22:32 Dose: 2 mg Fluticasone Propionate (Flonase -) 1 spray NS DAILY [facility] Last Admin: 05/12/19 10:55 Dose: 1 spray Gabapentin (Neurontin -) 300 mg PO TID [facility] Last Admin: 05/12/19 13:47 Dose: 300 mg Sodium Chloride (Normal Saline -) 250 mls @ 3,000 mls/hr IV PRN PRN PRN Reason: Hypotension during Dialysis Stop: 01/15/20 09:27 Insulin Aspart (Novolog Vial Sliding Scale -) 1 vial SQ TIDAC [facility]; Protocol Last Admin: 05/12/19 11:56 Dose: Not Given Insulin Detemir (Levemir Vial) 3 units SQ HS [facility] Last Admin: 05/11/19 22:31 Dose: 3 units Lidocaine (Lidoderm Patch -) 1 patch TP DAILY [facility] Last Admin: 05/12/19 10:53 Dose: 1 patch Methadone HCl (Dolophine -) 2.5 mg PO TID [facility] Last Admin: 05/12/19 13:47 Dose: 2.5 mg Miscellaneous (Lidoderm Patch Removal) 1 each MC DAILY@2200 [facility] Last Admin: 05/11/19 22:33 Dose: 1 each Multivit/Ca Carb/B Cmplx/FA/Prenat (Nephro-Guilherme -) 1 tablet PO DAILY [facility] Last Admin: 05/12/19 10:53 Dose: 1 tablet Nifedipine (Procardia Xl -) 90 mg PO DAILY [facility] Tiotropium [place] (Spiriva Respimat) 2 puff IH DAILY [facility] Last Admin: 05/12/19 10:56 Dose: 2 puff Trazodone HCl 400 mg/ (Trazodone HCl 50 mg) 450 mg PO [facility] Last Admin: 05/11/19 22:29 Dose: 450 mg 63 year old gentleman with history of ESRD on HD, DM, hypertension, PVD s/p bilateral BKA presented from HD unit with worsening anemia and shortness of breath. 1. ESRD on HD 2. Acute on Chronic anemia (negative stool occult blood, + recent infection may have lead to ADRIAN resistance) 3. Suspected PE/final CT read showed no PE 4. Fluid overload for additional dialysis today with aggressive UF Hgb improved > 8, no need for additional PRBC continue ADRIAN Final CT read showed no PE, now off Eliquis. LE doppler negative for DVT. Thank you Miguel Jansen DO
[2019-05-12 15:55] LABS: HEMATOCRIT 24.7 % (35.4-49); MCH 28.2 pg (25.7-33.7); MCHC 32.4 g/dl (32.0-35.9); MEAN CELL VOLUME 86.9 fl (80-96); MEAN PLT VOLUME 7.2 fl (7.5-11.1); PLATELET COUNT 297 K/MM3 (134-434); RBC 2.84 M/mm3 (4.00-5.60); RDW 16.5 % (11.9-15.9)
[2019-05-12 16:17] LABS: ALBUMIN 2.5 g/dl (3.4-5.0); BILIRUBIN,TOTAL 0.5 mg/dL (0.2-1); BLOOD UREA NITROGEN 55.2 mg/dL (7-18); CALCIUM 7.7 mg/dL (8.5-10.1); CREATININE 4.2 mg/dL (0.55-1.3); POTASSIUM 5.7 mmol/L (3.5-5.1)
--- NOTE | 2019-05-12 18:48 | CON.ID ---
Consult Consult Specialty:: infectious diseases Referred by:: Reason for Consultation:: sob - History of Present Illness Chief Complaint: sob,weakness History of Present Illness: 63yo male with h/o HTN, DM, ESRD on HD, h/o osteomyelitis, h/o bilateral BKAs who was sent from the halfway for worsening shortness of breath and anemia. Noted to have Hgb 6.4 s/p 4 units PRBC transfusions. 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 Cardio/Vascular: Yes: HTN Gastrointestinal: Yes: GERD Renal/: Yes: Renal Failure, Renal Inusuff, Hemodialysis Infectious Disease: Yes: Other (osteomyelitis) Psych: Yes: Depression Musculoskeletal: Yes: Other (chronic pain) Rheumatology: Yes: Other (history of osteomyelitis) Endocrine: Yes: Diabetes Mellitus - Past Surgical History Past Surgical History: Yes: Amputation (transmetatarsal of Left foot) - Alcohol/Substance Use Hx Alcohol Use: No Number of Drinks Daily: 2 (weekends) History of Substance Use: reports: None - Smoking History Smoking history: Former smoker Have you smoked in the past 12 months: Yes Aproximately how many cigarettes per day: 1 If you are a former smoker, when did you quit?: FEB 2019 - Social History Usual Living Arrangement: Alone ADL: Support Services History of Recent Travel: No Home Medications - Allergies Allergies/Adverse Reactions: Allergies Allergy/AdvReac Type Severity Reaction Status Date / Time shellfish derived Allergy Severe "HIVES" Verified 05/09/19 08:51 No Known Drug Allergies Allergy Verified 05/09/19 08:51 - Home Medications Home Medications: Ambulatory Orders Fluticasone Prop 0.05% Nasal [Flonase -] 1 - 2 spray NS DAILY #1 spray.pump Lidocaine 5% Patch [Lidoderm -] 1 patch TP DAILY patch 10/06/17 Lidocaine Patch Removal [Lidoderm Patch Removal] 1 each MC DAILY@2200 each 02/13 traZODone HCL [Desyrel -] 450 mg PO HS 04/07/19 Methadone [Dolophine -] 2.5 mg PO TID 04/16/19 Doxazosin Mesylate [Cardura -] 2 mg PO HS #30 tablet 12/23/19 Gabapentin [Neurontin -] 300 mg PO TID #90 capsule 04/20/19 Insulin Sliding Scale [Novolog Vial Sliding Scale -] 1 vial SQ TIDAC #1 vial Nifedipine ER [Procardia XL -] 60 mg PO DAILY #30 tab.er.24 04/20/19 Vitamin B Comp W-C [Nephro-Guilherme -] 1 tablet PO DAILY #30 tablet 04/20/19 Insulin (Levemir) [Levemir Vial] 12 unit SQ HS 05/10/19 Doxazosin Mesylate 4 mg PO DAILY 05/11/19 Gabapentin 100 mg PO BID 05/11/19 Nifedipine ER [Procardia Xl -] 90 mg PO DAILY 05/11/19 Review of Systems - Review of Systems Constitutional: reports: No Symptoms Eyes: reports: No Symptoms HENT: reports: No Symptoms Neck: reports: No Symptoms Cardiovascular: reports: No Symptoms Respiratory: reports: SOB, SOB on Exertion Gastrointestinal: reports: No Symptoms Genitourinary: reports: No Symptoms Breasts: reports: No Symptoms Reported Neurological: reports: No Symptoms Endocrine: reports: No Symptoms Hematology/Lymphatic: reports: No Symptoms Psychiatric: reports: No Symptoms Physical Exam Vital Signs: Vital Signs Temperature 97.8 F 05/12/19 15:10 Pulse Rate 81 05/12/19 17:15 Respiratory Rate 18 05/12/19 17:15 Blood Pressure 164/82 05/12/19 17:15 O2 Sat by Pulse Oximetry (%) 95 05/12/19 09:00 Constitutional: Yes: Well Nourished, No Distress, Calm Cardiovascular: Yes: Regular Rate and Rhythm Respiratory: Yes: Regular, Poor Air Entry (bases), Other (crackles scattered) Gastrointestinal: Yes: Normal Bowel Sounds, Soft Musculoskeletal: Yes: WNL Extremities: Yes: Other Neurological: Yes: Alert, Oriented Psychiatric: Yes: Alert, Oriented Labs: CBC, BMP 05/12/19 15:10 05/12/19 15:10 Imaging - Results Chest X-ray: Report Reviewed, Image Reviewed Cat Scan: Report Reviewed, Image Reviewed Assessment/Plan Volume Overload Acute on Chronic Diastolic Heart Failure Anemia s/p 4 unit PRBC transfusion r/o Transfusion Associated Circulatory Overload ESRD on HD HTN DM Bilateral BKA h/o Osteomyelitis bleeding per rectum plan findings probably due to fluid overload will hold off on starting any abx monitor closely rest as per the team
--- NOTE | 2019-05-12 19:27 | PN ---
Teaching Attending Note Name of Resident: Rivas Coon ATTENDING PHYSICIAN STATEMENT I saw and evaluated the patient. I reviewed the resident's note and discussed the case with the resident. I agree with the resident's findings and plan as documented. SUBJECTIVE: No fever or chills. No PEREZ.still SOB . not changed. OBJECTIVE: NAD, awake, alert. MMM Cv: RRR, possible 2/6 SM at LLSB Lungs: bibasilar crackles have diminished. Abd: soft, NT, nl BS Ext: No edema. b/l BKA. L stump with no open wounds. with R BKA, no ulcers Assessment/Plan: 63 y/o man with h/o ESRD on HD (TTS), IDDM, HTN, PVD s/p L BKA, Diabetic neuropathy, MRSA bacteremia , , R IJ thrombus, 10/14, R foot OM and necrotizing fasciitis , s/p R BKA 04/16, MSSA bacteremia , normocytic anemia , and other medical problems who presented due to anemia. 1- Acute on chronic normocytic anemia: suspect worsening anemia from chronic disease - LDH nl, hapto pending. unlikely hemolysis 2- SOB; due to pulm edema . - cont HD. - repeat CT for mediastinal lymphadenopathy 3- DM: with hypoglycemia this am. - c levemir to 3 units with supper - loose SSI coverage and no HS coverage - sensitive to insulin 4- h/o HTN: cont nifedipine 90 mg ( increased here) , and cardura. - add losartan and monitor K. d/w renal 5-Chronic pain: cont methadone and lidocaine patch 7- ESRD: HD per renal DVT PX: add heparin sq
[2019-05-12] MEDS ORDERED: traZODone HCL 50 MG TABLET (FP) ONE (21:07)
[2019-05-12] MEDS ORDERED: traZODone HCL 100 MG TABLET (FP) ONE (21:07)
[2019-05-12] MEDS: TRAZODONE HCL PO SCH (21:57)
[2019-05-12] MEDS: DOXAZOSIN MESYLATE 2 MG TABLET PO SCH (21:58)
[2019-05-12] MEDS: HEPARIN NA (PORCINE) 5,000 UNITS/ML 1ML VIAL SQ SCH (21:58)
[2019-05-12] MEDS: INSULIN (LEVEMIR) 100 UNITS/ML UNITS SQ SCH (22:00)
[2019-05-12] MEDS: LIDOCAINE PATCH REMOVAL MC SCH (22:03)
--- NOTE | 2019-05-12 23:43 | PN ---
Physical Exam: SUBJECTIVE: Patient seen and examined at bedside. Overnight his BP was elevated and the covering team provided 100 mg labetolol to minimal effect. Pt was asymptomatic. BP improved after AM meds administered. Today he c/o SOB in AM, which resolved with nebulizer/time; this has never happened before. OBJECTIVE: Vital Signs Temp Pulse Resp BP Pulse Ox 97.8 F 82 18 160/78 95 05/12/19 15:10 05/12/19 19:00 05/12/19 19:00 05/12/19 19:00 05/12/19 09:00 GENERAL: AOx3, in no acute distress. HEAD: NCAT EYES: ROBERTH, EOMI, conjunctiva clear. ENT: Ears normal, nares patent, oropharynx clear without exudates. Moist mucous membranes. NECK: Normal range of motion, supple without lymphadenopathy, JVD, or masses. LUNGS: Crackls at bases BL. No wheezes, and no crackles. No accessory muscle use. HEART: RRR s1 s2 ABDOMEN: Soft, BS present in all 4 quadrants, non-distended, no JVD, MUSCULOSKELETAL: No bony deformities or tenderness. No CVA tenderness. UPPER EXTREMITIES: LEFT arm AV fistula. 2+ pulses, warm, well-perfused. No cyanosis. No clubbing. No peripheral edema. LOWER EXTREMITIES: BL BKA, some dryness BL and area of chaffing on LEFT nub. NEUROLOGICAL: RIGHT 5/5, LEFT 4/5 strength. Cranial nerves II-XII intact. Normal speech. Gait not appreciated. PSYCHIATRIC: Not very cooperative and argumentative. Good eye contact. Appropriate mood and affect. SKIN: Warm, dry, normal turgor, no rashes or lesions noted, normal capillary refill. Laboratory Results - last 24 hr 05/09/19 05/12/19 05/12/19 08:14 05:16 11:55 WBC RBC Hgb Hct MCV MCH MCHC RDW Plt Count MPV Sodium Potassium Chloride Carbon Dioxide Anion Gap BUN Creatinine Est GFR (CKD-EPI)AfAm Est GFR (CKD-EPI)NonAf POC Glucometer 161 166 Random Glucose Calcium Phosphorus Total Bilirubin AST ALT Alkaline Phosphatase Total Protein Albumin Blood Type B POSITIVE Antibody Screen Negative Crossmatch See Detail 05/12/19 05/12/19 05/12/19 15:10 15:10 21:18 WBC 11.0 H RBC 2.84 L Hgb 8.0 L Hct 24.7 L MCV 86.9 MCH 28.2 MCHC 32.4 RDW 16.5 H Plt Count 297 MPV 7.2 L Sodium 134 L Potassium 5.7 H Chloride 99 Carbon Dioxide 29 Anion Gap 6 L BUN 55.2 H Creatinine 4.2 H Est GFR (CKD-EPI)AfAm 16.30 Est GFR (CKD-EPI)NonAf 14.07 POC Glucometer 346 Random Glucose 280 H Calcium 7.7 L Phosphorus 5.0 H Total Bilirubin 0.5 AST 20 ALT 25 Alkaline Phosphatase 210 H Total Protein 7.0 Albumin 2.5 L Blood Type Antibody Screen Crossmatch Active Medications Albuterol Sulfate (Ventolin 0.083% Nebulizer Soln -) 1 amp NEB Q4H PRN PRN Reason: SHORT OF BREATH/WHEEZING Last Admin: 05/11/19 01:03 Dose: 1 amp Albuterol Sulfate (Ventolin 0.083% Nebulizer Soln -) 1 amp NEB RQID [facility] Last Admin: 05/12/19 20:05 Dose: 1 amp Bacitracin (Bacitracin -) 1 applic TP BID [facility] Last Admin: 05/12/19 21:57 Dose: 1 applic Doxazosin Mesylate (Cardura -) 2 mg PO HS [facility] Last Admin: 05/12/19 21:58 Dose: 2 mg Fluticasone Propionate (Flonase -) 1 spray NS DAILY [facility] Last Admin: 05/12/19 10:55 Dose: 1 spray Gabapentin (Neurontin -) 300 mg PO TID [facility] Last Admin: 05/12/19 21:57 Dose: 300 mg Heparin Sodium (Porcine) (Heparin -) 5,000 unit SQ TID [facility] Last Admin: 05/12/19 21:58 Dose: 5,000 unit Sodium Chloride (Normal Saline -) 250 mls @ 3,000 mls/hr IV PRN PRN PRN Reason: Hypotension during Dialysis Stop: 05/13/19 09:27 Insulin Aspart (Novolog Vial Sliding Scale -) 1 vial SQ TIDAC [facility]; Protocol Last Admin: 05/12/19 18:40 Dose: Not Given Insulin Detemir (Levemir Vial) 3 units SQ HS [facility] Last Admin: 05/12/19 22:00 Dose: 3 units Lidocaine (Lidoderm Patch -) 1 patch TP DAILY [facility] Last Admin: 05/12/19 10:53 Dose: 1 patch Losartan Potassium (Cozaar -) 25 mg PO DAILY [facility] Methadone HCl (Dolophine -) 2.5 mg PO TID [facility] Last Admin: 05/12/19 21:58 Dose: 2.5 mg Miscellaneous (Lidoderm Patch Removal) 1 each MC DAILY@2200 [facility] Last Admin: 05/12/19 22:03 Dose: 1 each Multivit/Ca Carb/B Cmplx/FA/Prenat (Nephro-Guilherme -) 1 tablet PO DAILY [facility] Last Admin: 05/12/19 10:53 Dose: 1 tablet Nifedipine (Procardia Xl -) 90 mg PO DAILY [facility] Tiotropium [place] (Spiriva Respimat) 2 puff IH DAILY [facility] Last Admin: 05/12/19 10:56 Dose: 2 puff Trazodone HCl 400 mg/ (Trazodone HCl 50 mg) 450 mg PO HS [facility] Last Admin: 05/12/19 21:57 Dose: 450 mg ASSESSMENT/PLAN: 63 y/o male PMH HTN, insulin treated DM, ESRD (TTS), PVD s/p BL BKA (2018) and MRSA bacteremia brought in for anemia. Overnight chest CT suspicous of blood clot but not likely given final read. For HD today. # SOB - Pulm already consulted: CT chest findings and clinical exam more consistent with volume overload, mediastinal lymphadenopathy and sabino hepatis can be seen with decompensated heart failure or volume overload/TACO - HD per renal with ultrafiltration, likely needs a lower dry weight # Lung/mediastinal mass - Lymphoma vs lung cancer - Pulmonary consult noted as above; more likely atelectasis - F/u heme/onc recommendation # Normocytic anemia - Repeat afternoon CBC demonstrates stable h/h - Most likely ACD however poss hemolysis given low Hb despite transfusion - LDH normal and haptoglobin pending - Heme/onc consulted: Severe ACD and iron studies s/o chronic disease; stool occult is negative # ESRD - Renal consulted: Dialysis tomorrow. - S/p PRBC transfusion, Hgb improved to > 8 today. Will check CBC today with HD. - 1.2L fluid restriction # Chronic pain - Methadone 2.5 mg PO TID - Lidocaine patch # DM - Hold home regimen - ISS ACHS with gentle modification/please see sliding scale instructions - Insulin Levemir lowered to 3 units with supper - Gabapentin 300 mg PO TID # HTN - Cont. curent home regimen: Nifedipine ER 90 mg PO QD (changed from 60 mg), doxazosin 2 mg PO HS - Discussed benefits of YASMIN/ARB with nephrology and concurs Losartan 50 mg PO QD would be beneficial # Possible PE, ruled out - Overnight read of, "subsegmental peripheral right lung pulmonary embolism, no saddle embolus, interstitial edema, some infiltrates likely infection and a possibility for malignancy in the lungs, because the left heart border had suspicions for small cell carcinoma with mediastinal lymphadenopathy and sabino hepatis. There is concern for Lymphoma with recommendation for CT A/P (non- emergent)." - Pt hemodynamically stable - D dimer 1,438 - Pt elected for PO anticoag with Zabrina after lengthy discussion (please see attending note) - Pulm consulted: Do not suspect PE at this time. CT chest findings and clinical exam more consistent with volume overload, mediastinal lymphadenopathy and sabino hepatis can be seen with decompensated heart failure or volume overload/TACO. Do not suspect lung mass, more likely atelectasis. Can d/c anticoagulation - US of LE to r/o DVT. - F/u CT in 6-8 weeks # E coli in urine - < 10k cfu - Pt asymptomatic # F/E/N - PO; 1.2L fluid restriction - Cont. to monitor - Low sodium, diabetic diet # DVT prophylaxis - Heparin SQ # Disposition - Med/surg Rivas Coon MD Visit type - Emergency Visit Emergency Visit: No - New Patient This patient is new to me today: No - Critical Care Critical Care patient: No ATTENDING PHYSICIAN STATEMENT I saw and evaluated the patient. I reviewed the resident's note and discussed the case with the resident. I agree with the resident's findings and plan as documented. SUBJECTIVE: OBJECTIVE: ASSESSMENT AND PLAN:
[2019-05-13] MEDS: ALBUTEROL SO4 0.083% IH SOL 2.5 MG/3 ML VIAL.NEB. NEB PRN (00:40)
[2019-05-13] MEDS: HEPARIN NA (PORCINE) 5,000 UNITS/ML 1ML VIAL SQ SCH ×3 (07:12→21:57)
[2019-05-13] MEDS: GABAPENTIN 300 MG CAPSULE PO SCH ×3 (07:12→21:58)
[2019-05-13] MEDS: METHADONE HCL 5 MG TABLET PO SCH ×3 (07:12→21:57)
[2019-05-13] MEDS: INSULIN SLIDING SCALE (NOVOLOG) 1 VIAL SQ SCH ×3 (07:13→17:11)
[2019-05-13] MEDS ORDERED: INSULIN (NOVOLOG) ASPART 100 UNITS/ML 10ML VIAL ONE (07:19)
[2019-05-13] MEDS ORDERED: INSULIN (LEVEMIR) 100 UNITS/ML UNITS SQ ONE (07:19)
[2019-05-13] MEDS: ALBUTEROL SO4 0.083% IH SOL 2.5 MG/3 ML VIAL.NEB. NEB SCH ×4 (07:50→20:19)
--- NOTE | 2019-05-13 09:22 | PN ---
Teaching Attending Note Name of Resident: Rivas Coon ATTENDING PHYSICIAN STATEMENT I saw and evaluated the patient. I reviewed the resident's note and discussed the case with the resident. I agree with the resident's findings and plan as documented. SUBJECTIVE: patient is comfortable with no acute distress. Vital Signs Temperature 98.4 F 05/13/19 05:50 Pulse Rate 88 05/13/19 05:50 Respiratory Rate 20 05/13/19 05:50 Blood Pressure 156/79 05/13/19 05:50 O2 Sat by Pulse Oximetry (%) 96 05/12/19 21:00 GENERAL: The patient is awake, alert, and fully oriented, labored breathing. HEAD: Normal with no signs of trauma. EYES: PERRL, extraocular movements intact, sclera anicteric, conjunctiva clear. ENT: Ears normal, oropharynx clear without exudates, moist mucous membranes. NECK: Trachea midline, full range of motion, supple. LUNGS: decreased Breath sounds bl, positive for wheezes, no crackles, no accessory muscle use. HEART: Regular rate and rhythm, S1, S2 without murmur, rub or gallop. ABDOMEN: Soft, nontender, nondistended, normoactive bowel sounds, no guarding, no rebound, no hepatosplenomegaly, no masses. EXTREMITIES: 2+ pulses, warm, well-perfused, no edema. NEUROLOGICAL: Cranial nerves II through XII grossly intact. Normal speech, gait not observed. PSYCH: Normal mood, normal affect. SKIN: Warm, dry, normal turgor, no rashes or lesions noted . CBCD WBC 11.0 K/mm3 (4.0-10.0) H 05/12/19 15:10 RBC 2.84 M/mm3 (4.00-5.60) L 05/12/19 15:10 Hgb 8.0 GM/dL (11.7-16.9) L 05/12/19 15:10 Hct 24.7 % (35.4-49) L 05/12/19 15:10 MCV 86.9 fl (80-96) 05/12/19 15:10 MCHC 32.4 g/dl (32.0-35.9) 05/12/19 15:10 RDW 16.5 % (11.9-15.9) H 01/14/20 15:10 Plt Count 297 K/MM3 (134-434) 05/12/19 15:10 MPV 7.2 fl (7.5-11.1) L 05/12/19 15:10 CMP Sodium 134 mmol/L (136-145) L 05/12/19 15:10 Potassium 5.7 mmol/L (3.5-5.1) H 05/12/19 15:10 Chloride 99 mmol/L (98-107) 05/12/19 15:10 Carbon Dioxide 29 mmol/L (21-32) 05/12/19 15:10 Anion Gap 6 MMOL/L (8-16) L 05/12/19 15:10 BUN 55.2 mg/dL (7-18) H 05/12/19 15:10 Creatinine 4.2 mg/dL (0.55-1.3) H 05/12/19 15:10 Random Glucose 280 mg/dL (74-106) H 05/12/19 15:10 Calcium 7.7 mg/dL (8.5-10.1) L 05/12/19 15:10 Total Bilirubin 0.5 mg/dL (0.2-1) 05/12/19 15:10 AST 20 U/L (15-37) 05/12/19 15:10 ALT 25 U/L (13-61) 05/12/19 15:10 Alkaline Phosphatase 210 U/L (45-117) H 05/12/19 15:10 Total Protein 7.0 g/dl (6.4-8.2) 05/12/19 15:10 Albumin 2.5 g/dl (3.4-5.0) L 05/12/19 15:10 CARDIAC ENZYMES Creatine Kinase 84 U/L (26-308) 05/09/19 08:14 Troponin I < 0.02 ng/ml (0.00-0.05) 05/09/19 08:14 Current Medications Generic Name Dose Route Start Last Admin Trade Name Freq PRN Reason Stop Dose Admin Albuterol Sulfate 1 amp 05/09/19 09:53 05/13/19 00:40 Ventolin 0.083% Nebulizer Soln - NEB 1 amp Q4H PRN Administration SHORT OF BREATH/WHEEZING Albuterol Sulfate 1 amp 05/09/19 20:00 05/12/19 20:05 Ventolin 0.083% Nebulizer Soln - NEB 1 amp RQID [facility] Administration Bacitracin 1 applic 05/12/19 11:15 05/12/19 21:57 Bacitracin - TP 1 applic BID [facility] Administration Doxazosin Mesylate 2 mg 05/09/19 22:00 05/12/19 21:58 Cardura - PO 2 mg HS [facility] Administration Fluticasone Propionate 1 spray 05/09/19 10:00 05/12/19 10:55 Flonase - NS 1 spray DAILY [facility] Administration Gabapentin 300 mg 05/09/19 14:00 05/13/19 07:12 Neurontin - PO 300 mg TID [facility] Administration Heparin Sodium (Porcine) 5,000 unit 05/12/19 22:00 05/13/19 07:12 Heparin - SQ 5,000 unit TID [facility] Administration Sodium Chloride 250 mls @ 3,000 mls/hr 05/12/19 09:27 Normal Saline - IV 05/13/19 09:27 PRN PRN Hypotension during Dialysis Insulin Aspart 1 vial 05/11/19 14:51 05/13/19 07:13 Novolog Vial Sliding Scale - SQ Not Given TIDAC [facility] Protocol Insulin Detemir 3 units 05/11/19 09:57 05/12/19 22:00 Levemir Vial SQ 3 units HS [facility] Administration Lidocaine 1 patch 05/09/19 10:00 05/12/19 10:53 Lidoderm Patch - TP 1 patch DAILY [facility] Administration Losartan Potassium 25 mg 05/13/19 10:00 Cozaar - PO DAILY [facility] Methadone HCl 2.5 mg 05/09/19 14:00 05/13/19 07:12 Dolophine - PO 2.5 mg TID [facility] Administration Miscellaneous 1 each 05/09/19 22:00 05/12/19 22:03 Lidoderm Patch Removal MC 1 each DAILY@2200 [facility] Administration Multivit/Ca Carb/B Cmplx/FA/Prenat 1 tablet 05/09/19 10:00 05/12/19 10:53 Nephro-Guilherme - PO 1 tablet DAILY [facility] Administration Nifedipine 90 mg 05/13/19 10:00 Procardia Xl - PO DAILY [facility] Tiotropium [place] 2 puff 05/10/19 10:00 05/12/19 10:56 Spiriva Respimat IH 2 puff DAILY [facility] Administration Trazodone HCl 400 mg/ 450 mg 05/09/19 22:15 05/12/19 21:57 Trazodone HCl 50 mg PO 450 mg HS [facility] Administration Home Medications Medication Instructions Recorded Fluticasone Prop 0.05% Nasal 1 - 2 spray NS DAILY #1 spray.pump 08/23/17 [Flonase -] Lidocaine 5% Patch [Lidoderm -] 1 patch TP DAILY patch 10/06/17 Lidocaine Patch Removal [Lidoderm 1 each MC DAILY@2200 each 10/06/17 Patch Removal] traZODone HCL [Desyrel -] 450 mg PO HS 04/07/19 Methadone [Dolophine -] 2.5 mg PO TID 04/16/19 Doxazosin Mesylate [Cardura -] 2 mg PO HS #30 tablet 04/20/19 Gabapentin [Neurontin -] 300 mg PO TID #90 capsule 04/20/19 Insulin Sliding Scale [Novolog 1 vial SQ TIDAC #1 vial 04/20/19 Vial Sliding Scale -] Nifedipine ER [Procardia XL -] 60 mg PO DAILY #30 tab.er.24 04/20/19 Vitamin B Comp W-C [Nephro-Guilherme -] 1 tablet PO DAILY #30 tablet 04/20/19 Insulin (Levemir) [Levemir Vial] 12 unit SQ HS 05/10/19 Doxazosin Mesylate 4 mg PO DAILY 05/11/19 Gabapentin 100 mg PO BID 05/11/19 Nifedipine ER [Procardia Xl -] 90 mg PO DAILY 05/11/19 Microbiology 05/09/19 10:14 Urine - Urine Clean Catch Urine Culture - Final Gram Negative [place] CT for mediastinal lymphadenopathy Assessment and plan: patient is a 63 y/o man with h/o ESRD on HD (TTS), IDDM, HTN, PVD s/p L BKA, Diabetic neuropathy, MRSA bacteremia , 10/14, R IJ thrombus, 10/14 , R foot OM and necrotizing fasciitis , s/p R BKA 04/16, MSSA bacteremia , normocytic anemia ,who presented due to anemia. # Acute on chronic normocytic anemia: LDH nl, hapto pending. unlikely hemolysis # SOB; due to pulm edema, patient needing HD # ESRD: HD per renal, nephro on the case. # DM: with hypoglycemia this am. continue with SS with coverage , SSI coverage and no HS coverage , sensitive to insulin # Hx HTN: cont nifedipine 90 mg (increased) , and cardura, losartan and monitor K. d/w renal #Chronic pain: cont methadone and lidocaine patch DVT Px: add heparin sq
--- NOTE | 2019-05-13 10:05 | PN ---
Progress Note, Physician History of Present Illness: stable had some blood in stools - Current Medication List Current Medications: Active Medications Albuterol Sulfate (Ventolin 0.083% Nebulizer Soln -) 1 amp NEB Q4H PRN PRN Reason: SHORT OF BREATH/WHEEZING Last Admin: 05/13/19 00:40 Dose: 1 amp Albuterol Sulfate (Ventolin 0.083% Nebulizer Soln -) 1 amp NEB RQID [facility] Last Admin: 05/12/19 20:05 Dose: 1 amp Bacitracin (Bacitracin -) 1 applic TP BID [facility] Last Admin: 05/12/19 21:57 Dose: 1 applic Doxazosin Mesylate (Cardura -) 2 mg PO HS [facility] Last Admin: 05/12/19 21:58 Dose: 2 mg Fluticasone Propionate (Flonase -) 1 spray NS DAILY [facility] Last Admin: 05/12/19 10:55 Dose: 1 spray Gabapentin (Neurontin -) 300 mg PO TID [facility] Last Admin: 05/13/19 07:12 Dose: 300 mg Heparin Sodium (Porcine) (Heparin -) 5,000 unit SQ TID [facility] Last Admin: 05/13/19 07:12 Dose: 5,000 unit Sodium Chloride (Normal Saline -) 250 mls @ 3,000 mls/hr IV PRN PRN PRN Reason: Hypotension during Dialysis Stop: 05/13/19 09:27 Insulin Aspart (Novolog Vial Sliding Scale -) 1 vial SQ TIDAC [facility]; Protocol Last Admin: 05/13/19 07:13 Dose: Not Given Insulin Detemir (Levemir Vial) 3 units SQ [facility] Last Admin: 05/12/19 22:00 Dose: 3 units Lidocaine (Lidoderm Patch -) 1 patch TP DAILY [facility] Last Admin: 05/12/19 10:53 Dose: 1 patch Losartan Potassium (Cozaar -) 25 mg PO DAILY [facility] Methadone HCl (Dolophine -) 2.5 mg PO TID [facility] Last Admin: 05/13/19 07:12 Dose: 2.5 mg Miscellaneous (Lidoderm Patch Removal) 1 each MC DAILY@2200 [facility] Last Admin: 05/12/19 22:03 Dose: 1 each Multivit/Ca Carb/B Cmplx/FA/Prenat (Nephro-Guilherme -) 1 tablet PO DAILY [facility] Last Admin: 05/12/19 10:53 Dose: 1 tablet Nifedipine (Procardia Xl -) 90 mg PO DAILY [facility] Tiotropium [place] (Spiriva Respimat) 2 puff IH DAILY [facility] Last Admin: 05/12/19 10:56 Dose: 2 puff Trazodone HCl 400 mg/ (Trazodone HCl 50 mg) 450 mg PO HS [facility] Last Admin: 05/12/19 21:57 Dose: 450 mg - Objective Vital Signs: Vital Signs Temperature 98.4 F 05/13/19 05:50 Pulse Rate 88 05/13/19 05:50 Respiratory Rate 20 05/13/19 05:50 Blood Pressure 156/79 05/13/19 05:50 O2 Sat by Pulse Oximetry (%) 96 05/12/19 21:00 Constitutional: Yes: No Distress, Calm Cardiovascular: Yes: Regular Rate and Rhythm Respiratory: Yes: Regular, CTA Bilaterally Gastrointestinal: Yes: Normal Bowel Sounds, Soft Musculoskeletal: Yes: WNL Extremities: Yes: Other (amputations) Neurological: Yes: Alert, Oriented Psychiatric: Yes: Alert, Oriented Labs: CBC, BMP 05/12/19 15:10 05/12/19 15:10 INR, PTT INR 1.38 (0.83-1.09) H 05/11/19 13:30 Assessment/Plan Volume Overload Acute on Chronic Diastolic Heart Failure Anemia s/p 4 unit PRBC transfusion r/o Transfusion Associated Circulatory Overload ESRD on HD HTN DM Bilateral BKA h/o Osteomyelitis bleeding per rectum plan continue current mgmt monitor bleeding per rectum
[2019-05-13] MEDS: LIDOCAINE 5% TOPICAL PATCH TP SCH (10:06)
[2019-05-13] MEDS: LOSARTAN POTASSIUM 25 MG TABLET PO SCH (10:07)
[2019-05-13] MEDS: NIFEdipine E.R. 90 MG TABLET PO SCH (10:07)
[2019-05-13] MEDS: TIOTROPIUM BROMIDE 2.5 MCG (SPIRIVA) RESPIMAT INHALER IH SCH (10:11)
[2019-05-13] MEDS ORDERED: PT OWN MED DRAWER 7, Y5N ONE (10:57)
[2019-05-13] MEDS: VITAMIN B COMP W-C 1 EA TABLET PO SCH (11:08)
[2019-05-13] MEDS: BACITRACIN 15 GM TUBE TOPICAL OINTMENT TP SCH ×2 (11:08→21:56)
[2019-05-13] MEDS ORDERED: FUROSEMIDE 40 MG/4 ML INJECTABLE VIAL IVPUSH ONE (11:30)
--- NOTE | 2019-05-13 11:42 | PN ---
Progress Note (short form) - Note Progress Note: PULMONARY States breathing improving. HD yesterday with removal of 3kg. No fevers recorded. CXR this AM still with congestive changes. Vital Signs Period Temp Pulse Resp BP Sys/Gutierrez Pulse Ox Last 24 Hr 97.7 F-98.4 F 75-112 18-22 126-165/67-83 96 Gen: less tachypneic at rest Heart: RRR Lung: scattered rhonchi Abd: soft, nontender Ext: bilateral BKA CBC, BMP 05/12/19 15:10 05/12/19 15:10 Active Medications Albuterol Sulfate (Ventolin 0.083% Nebulizer Soln -) 1 amp NEB Q4H PRN PRN Reason: SHORT OF BREATH/WHEEZING Last Admin: 05/13/19 00:40 Dose: 1 amp Albuterol Sulfate (Ventolin 0.083% Nebulizer Soln -) 1 amp NEB RQID [facility] Last Admin: 05/13/19 07:50 Dose: 1 amp Bacitracin (Bacitracin -) 1 applic TP BID [facility] Last Admin: 05/13/19 11:08 Dose: 1 applic Doxazosin Mesylate (Cardura -) 2 mg PO HS [facility] Last Admin: 05/12/19 21:58 Dose: 2 mg Fluticasone Propionate (Flonase -) 1 spray NS DAILY [facility] Last Admin: 05/12/19 10:55 Dose: 1 spray Gabapentin (Neurontin -) 300 mg PO TID [facility] Last Admin: 05/13/19 07:12 Dose: 300 mg Heparin Sodium (Porcine) (Heparin -) 5,000 unit SQ TID [facility] Last Admin: 05/13/19 07:12 Dose: 5,000 unit Sodium Chloride (Normal Saline -) 250 mls @ 3,000 mls/hr IV PRN PRN PRN Reason: Hypotension during Dialysis Stop: 05/13/19 09:27 Insulin Aspart (Novolog Vial Sliding Scale -) 1 vial SQ TIDAC [facility]; Protocol Last Admin: 05/13/19 07:13 Dose: Not Given Insulin Detemir (Levemir Vial) 3 units SQ HS [facility] Last Admin: 05/12/19 22:00 Dose: 3 units Lidocaine (Lidoderm Patch -) 1 patch TP DAILY [facility] Last Admin: 05/13/19 10:06 Dose: 1 patch Losartan Potassium (Cozaar -) 25 mg PO DAILY [facility] Last Admin: 05/13/19 10:07 Dose: 25 mg Methadone HCl (Dolophine -) 2.5 mg PO TID [facility] Last Admin: 05/13/19 07:12 Dose: 2.5 mg Miscellaneous (Lidoderm Patch Removal) 1 each MC DAILY@2200 [facility] Last Admin: 05/12/19 22:03 Dose: 1 each Multivit/Ca Carb/B Cmplx/FA/Prenat (Nephro-Guilherme -) 1 tablet PO DAILY [facility] Last Admin: 05/13/19 11:08 Dose: 1 tablet Nifedipine (Procardia Xl -) 90 mg PO DAILY [facility] Last Admin: 05/13/19 10:07 Dose: 90 mg Tiotropium [place] (Spiriva Respimat) 2 puff IH DAILY [facility] Last Admin: 05/12/19 10:56 Dose: 2 puff Trazodone HCl 400 mg/ (Trazodone HCl 50 mg) 450 mg PO HS [facility] Last Admin: 05/12/19 21:57 Dose: 450 mg A/P Volume Overload Acute on Chronic Diastolic Heart Failure Anemia s/p 4 unit PRBC transfusion r/o Transfusion Associated Circulatory Overload ESRD on HD HTN DM Bilateral BKA h/o Osteomyelitis - HD per renal with ultrafiltration, likely needs a lower dry weight - O2 to keep Spo2 >90% - inhaled bronchodilators as needed - will need f/u CT chest in 6-8 weeks when euvolemic - DVT prophylaxis
[2019-05-13] MEDS: FLUTICASONE PROP 0.05% 16 GM NASAL SPRAY NS SCH (12:14)
[2019-05-13] MEDS ORDERED: SODIUM CHLORIDE 250 ML IV PRN (16:47)
--- NOTE | 2019-05-13 16:47 | PN ---
Progress Note (short form) - Note Progress Note: Renal follow up for ESRD on HD Seen and examined at the bedside reports feeling better sob is improved no cough s/p dialysis yesterday Vital Signs Temperature 98.4 F 05/13/19 10:00 Pulse Rate 89 05/13/19 10:00 Respiratory Rate 05/13/19 10:00 Blood Pressure 165/87 05/13/19 10:00 O2 Sat by Pulse Oximetry (%) 96 05/13/19 09:00 Intake & Output 05/10/19 05/11/19 05/12/19 05/13/19 23:59 23:59 23:59 23:59 Intake Total 2550 9216 033 3010 Output Total 5300 2550 3400 Balance -2750 -1373 -2720 1197 Weight 79.832 kg 80.739 kg 81.647 kg 81.703 kg NAD awake and alert neck supple, no JVD RRR Dec BS at lung bases soft NT/ND no LE edema. + bilateral BKA CBC, BMP 05/12/19 15:10 05/12/19 15:10 Current Medications Albuterol Sulfate (Ventolin 0.083% Nebulizer Soln -) 1 amp NEB Q4H PRN PRN Reason: SHORT OF BREATH/WHEEZING Last Admin: 05/13/19 00:40 Dose: 1 amp Albuterol Sulfate (Ventolin 0.083% Nebulizer Soln -) 1 amp NEB RQID [facility] Last Admin: 05/13/19 12:00 Dose: 1 amp Bacitracin (Bacitracin -) 1 applic TP BID [facility] Last Admin: 05/13/19 11:08 Dose: 1 applic Doxazosin Mesylate (Cardura -) 2 mg PO HS [facility] Last Admin: 05/12/19 21:58 Dose: 2 mg Fluticasone Propionate (Flonase -) 1 spray NS DAILY [facility] Last Admin: 05/13/19 12:14 Dose: Not Given Gabapentin (Neurontin -) 300 mg PO TID [facility] Last Admin: 05/13/19 13:34 Dose: 300 mg Heparin Sodium (Porcine) (Heparin -) 5,000 unit SQ TID [facility] Last Admin: 05/13/19 13:34 Dose: 5,000 unit Sodium Chloride (Normal Saline -) 250 mls @ 3,000 mls/hr IV PRN PRN PRN Reason: Hypotension during Dialysis Stop: 05/13/19 09:27 Insulin Aspart (Novolog Vial Sliding Scale -) 1 vial SQ TIDAC [facility]; Protocol Last Admin: 05/13/19 12:09 Dose: 2 units Insulin Detemir (Levemir Vial) 3 units SQ HS [facility] Last Admin: 05/12/19 22:00 Dose: 3 units Lidocaine (Lidoderm Patch -) 1 patch TP DAILY [facility] Last Admin: 05/13/19 10:06 Dose: 1 patch Losartan Potassium (Cozaar -) 25 mg PO DAILY [facility] Last Admin: 05/13/19 10:07 Dose: 25 mg Methadone HCl (Dolophine -) 2.5 mg PO TID [facility] Last Admin: 05/13/19 13:34 Dose: 2.5 mg Miscellaneous (Lidoderm Patch Removal) 1 each MC DAILY@2200 [facility] Last Admin: 05/12/19 22:03 Dose: 1 each Multivit/Ca Carb/B Cmplx/FA/Prenat (Nephro-Guilherme -) 1 tablet PO DAILY [facility] Last Admin: 05/13/19 11:08 Dose: 1 tablet Nifedipine (Procardia Xl -) 90 mg PO DAILY [facility] Last Admin: 05/13/19 10:07 Dose: 90 mg Tiotropium [place] (Spiriva Respimat) 2 puff IH DAILY [facility] Last Admin: 05/13/19 10:11 Dose: 2 puff Trazodone HCl 400 mg/ (Trazodone HCl 50 mg) 450 mg PO HS [facility] Last Admin: 05/12/19 21:57 Dose: 450 mg 63 year old gentleman with history of ESRD on HD, DM, hypertension, PVD s/p bilateral BKA presented from HD unit with worsening anemia and shortness of breath. 1. ESRD on HD 2. Acute on Chronic anemia (negative stool occult blood, + recent infection may have lead to ADRIAN resistance) 3. Suspected PE/final CT read showed no PE 4. Fluid overload volume status improved. No acute indication for dialysis/UF today will plan for dialysis in AM with continued aggressive UF. Thank you Miguel Jansen DO
[2019-05-13] MEDS ORDERED: traZODone HCL 50 MG TABLET (FP) ONE (21:25)
[2019-05-13] MEDS ORDERED: traZODone HCL 100 MG TABLET (FP) ONE (21:25)
[2019-05-13] MEDS: INSULIN (LEVEMIR) 100 UNITS/ML UNITS SQ SCH (21:57)
[2019-05-13] MEDS: DOXAZOSIN MESYLATE 2 MG TABLET PO SCH (21:57)
[2019-05-13] MEDS: LIDOCAINE PATCH REMOVAL MC SCH (21:57)
[2019-05-13] MEDS: TRAZODONE HCL PO SCH (21:57)
--- NOTE | 2019-05-13 22:28 | PN ---
Physical Exam: SUBJECTIVE: Patient seen and examined at bedside. There were no acute events overnight. This AM he denies SOB but is anxious about return of sudden onset SOB. OBJECTIVE: Vital Signs Temp Pulse Resp BP Pulse Ox 98.4 F 89 20 165/87 96 05/13/19 10:00 05/13/19 10:00 05/13/19 10:00 05/13/19 10:00 05/13/19 09:00 GENERAL: AOx3, in no acute distress. Carbon-fiber prosthesis at bedside. HEAD: NCAT EYES: ROBERTH, EOMI, conjunctiva clear. ENT: Ears normal, nares patent, oropharynx clear without exudates. Moist mucous membranes. NECK: Normal range of motion, supple without lymphadenopathy, JVD, or masses. LUNGS: Crackls at bases BL. No wheezes, and no crackles. No accessory muscle use. HEART: RRR s1 s2 ABDOMEN: Soft, BS present in all 4 quadrants, non-distended, no JVD, MUSCULOSKELETAL: No bony deformities or tenderness. No CVA tenderness. UPPER EXTREMITIES: LEFT arm AV fistula. 2+ pulses, warm, well-perfused. No cyanosis. No clubbing. No peripheral edema. LOWER EXTREMITIES: BL BKA, some dryness BL and area of chaffing on LEFT nub. NEUROLOGICAL: RIGHT 5/5, LEFT 4/5 strength. Cranial nerves II-XII intact. Normal speech. Gait not appreciated. PSYCHIATRIC: Not very cooperative and argumentative. Good eye contact. Appropriate mood and affect. SKIN: Warm, dry, normal turgor, no rashes or lesions noted, normal capillary refill. Laboratory Results - last 24 hr 05/09/19 05/11/19 05/13/19 08:14 13:30 07:05 Haptoglobin 186 POC Glucometer 239 Blood Type B POSITIVE Antibody Screen Negative Crossmatch See Detail 05/13/19 05/13/19 12:07 17:09 Haptoglobin POC Glucometer 261 144 Blood Type Antibody Screen Crossmatch Active Medications Albuterol Sulfate (Ventolin 0.083% Nebulizer Soln -) 1 amp NEB Q4H PRN PRN Reason: SHORT OF BREATH/WHEEZING Last Admin: 05/13/19 00:40 Dose: 1 amp Albuterol Sulfate (Ventolin 0.083% Nebulizer Soln -) 1 amp NEB RQID [facility] Last Admin: 05/13/19 20:19 Dose: 1 amp Bacitracin (Bacitracin -) 1 applic TP BID [facility] Last Admin: 05/13/19 21:56 Dose: 1 applic Doxazosin Mesylate (Cardura -) 2 mg PO HS [facility] Last Admin: 05/13/19 21:57 Dose: 2 mg Epoetin [place] (Procrit -) 20,000 unit IVPUSH ONCE ONE Stop: 05/14/19 06:01 Fluticasone Propionate (Flonase -) 1 spray NS DAILY [facility] Last Admin: 05/13/19 12:14 Dose: Not Given Gabapentin (Neurontin -) 300 mg PO TID [facility] Last Admin: 05/13/19 21:58 Dose: 300 mg Heparin Sodium (Porcine) (Heparin -) 5,000 unit SQ TID [facility] Last Admin: 05/13/19 21:57 Dose: 5,000 unit Sodium Chloride (Normal Saline -) 250 mls @ 3,000 mls/hr IV PRN PRN PRN Reason: Hypotension during Dialysis Stop: 05/14/19 16:47 Insulin Aspart ([facility]ial Sliding Scale -) [facility] Protocol Last Admin: 05/13/19 17:11 Dose: Not Given Insulin Detemir (Levemir Vial) 3 units SQ HS [facility] Last Admin: 05/13/19 21:57 Dose: 3 units Lidocaine (Lidoderm Patch -) 1 patch TP DAILY [facility] Last Admin: 05/13/19 10:06 Dose: 1 patch Losartan Potassium (Cozaar -) 25 mg PO DAILY [facility] Last Admin: 05/13/19 10:07 Dose: 25 mg Methadone HCl (Dolophine -) 2.5 mg PO TID [facility] Last Admin: 05/13/19 21:57 Dose: 2.5 mg Miscellaneous (Lidoderm Patch Removal) 1 each MC DAILY@2200 [facility] Last Admin: 05/13/19 21:57 Dose: 1 each Multivit/Ca Carb/B Cmplx/FA/Prenat (Nephro-Guilherme -) 1 tablet PO DAILY [facility] Last Admin: 05/13/19 11:08 Dose: 1 tablet Nifedipine (Procardia Xl -) 90 mg PO DAILY [facility] Last Admin: 05/13/19 10:07 Dose: 90 mg Tiotropium [place] (Spiriva Respimat) 2 puff IH DAILY [facility] Last Admin: 05/13/19 10:11 Dose: 2 puff Trazodone HCl 400 mg/ (Trazodone HCl 50 mg) 450 mg PO HS [facility] Last Admin: 05/13/19 21:57 Dose: 450 mg ASSESSMENT/PLAN: 63 y/o male PMH HTN, insulin treated DM, ESRD (TTS), PVD s/p BL BKA (2019) and MRSA bacteremia brought in for anemia. Overnight chest CT suspicous of blood clot but not likely given final read. Now experiencing sudden onset SOB consistent with crackles on PE and HD yesterday with removal of 3kg. No fevers recorded. CXR this AM still with congestive changes. # SOB - Pulm already consulted: CT chest findings and clinical exam more consistent with volume overload, mediastinal lymphadenopathy and sabino hepatis can be seen with decompensated heart failure or volume overload/TACO - HD per renal with ultrafiltration, likely needs a lower dry weight - Will plan for dialysis in AM with continued aggressive UF # Lung/mediastinal mass - Lymphoma vs lung cancer - Pulmonary consult noted as above; more likely atelectasis - F/u heme/onc recommendation # Normocytic anemia - Repeat afternoon CBC demonstrates stable h/h - Most likely ACD however poss hemolysis given low Hb despite transfusion - LDH normal and haptoglobin pending - Heme/onc consulted: Severe ACD and iron studies s/o chronic disease; stool occult is negative # ESRD - Renal consulted: Dialysis tomorrow. - S/p PRBC transfusion, Hgb improved to > 8 today. Will check CBC today with HD. - 1.2L fluid restriction # Chronic pain - Methadone 2.5 mg PO TID - Lidocaine patch # DM - Hold home regimen - ISS ACHS with gentle modification/please see sliding scale instructions - Insulin Levemir lowered to 3 units with supper - Gabapentin 300 mg PO TID # HTN - Cont. curent home regimen: Nifedipine ER 90 mg PO QD (changed from 60 mg), doxazosin 2 mg PO HS - Discussed benefits of YASMIN/ARB with nephrology and concurs Losartan 50 mg PO QD would be beneficial # Possible PE, ruled out - Overnight read of, "subsegmental peripheral right lung pulmonary embolism, no saddle embolus, interstitial edema, some infiltrates likely infection and a possibility for malignancy in the lungs, because the left heart border had suspicions for small cell carcinoma with mediastinal lymphadenopathy and sabino hepatis. There is concern for Lymphoma with recommendation for CT A/P (non- emergent)." - Pt hemodynamically stable - D dimer 1,438 - Pt elected for PO anticoag with Gretais after lengthy discussion (please see attending note) - Pulm consulted: Do not suspect PE at this time. CT chest findings and clinical exam more consistent with volume overload, mediastinal lymphadenopathy and sabino hepatis can be seen with decompensated heart failure or volume overload/TACO. Do not suspect lung mass, more likely atelectasis. Can d/c anticoagulation - US of LE to r/o DVT. - F/u CT in 6-8 weeks # E coli in urine - < 10k cfu - Pt asymptomatic # F/E/N - PO; 1.2L fluid restriction - Cont. to monitor - Low sodium, diabetic diet # DVT prophylaxis - Heparin SQ # Disposition - Med/surg Rivas Coon MD Visit type - Emergency Visit Emergency Visit: No - New Patient This patient is new to me today: No - Critical Care Critical Care patient: No ATTENDING PHYSICIAN STATEMENT I saw and evaluated the patient. I reviewed the resident's note and discussed the case with the resident. I agree with the resident's findings and plan as documented. SUBJECTIVE: OBJECTIVE: ASSESSMENT AND PLAN:
[2019-05-14] MEDS: INSULIN SLIDING SCALE (NOVOLOG) 1 VIAL SQ SCH ×3 (06:17→16:11)
[2019-05-14] MEDS: GABAPENTIN 300 MG CAPSULE PO SCH ×3 (06:17→22:58)
[2019-05-14] MEDS: METHADONE HCL 5 MG TABLET PO SCH ×3 (06:17→22:57)
[2019-05-14] MEDS: HEPARIN NA (PORCINE) 5,000 UNITS/ML 1ML VIAL SQ SCH ×3 (06:17→22:57)
[2019-05-14] MEDS: ALBUTEROL SO4 0.083% IH SOL 2.5 MG/3 ML VIAL.NEB. NEB SCH ×3 (08:00→17:30)
[2019-05-14] MEDS ORDERED: EPOETIN ALFA 20,000 UNIT/1 ML VIAL IVPUSH ONE (09:30)
[2019-05-14 10:25] LABS: HEMATOCRIT 23.4 % (35.4-49); HEMOGLOBIN 7.6 GM/dL (11.7-16.9); MCHC 32.6 g/dl (32.0-35.9); MEAN CELL VOLUME 88.8 fl (80-96); MEAN PLT VOLUME 7.5 fl (7.5-11.1); PLATELET COUNT 317 K/MM3 (134-434); RBC 2.63 M/mm3 (4.00-5.60); RDW 17.1 % (11.9-15.9); WHITE BLOOD COUNT 9.1 K/mm3 (4.0-10.0)
--- NOTE | 2019-05-14 10:37 | PN ---
Progress Note (short form) - Note Progress Note: PULMONARY States breathing continues to improve. Currently on HD with goal UF 3.5kg. Vital Signs Period Temp Pulse Resp BP Sys/Gutierrez Pulse Ox Last 24 Hr 97.7 F-98.7 F 80-108 18-20 132-161/74-91 96 Gen: less tachypneic at rest Heart: RRR Lung: scattered rhonchi Abd: soft, nontender Ext: bilateral BKA CBC, BMP 05/14/19 09:45 Active Medications Albuterol Sulfate (Ventolin 0.083% Nebulizer Soln -) 1 amp NEB RQID [facility] Last Admin: 05/14/19 08:00 Dose: Not Given Bacitracin (Bacitracin -) 1 applic TP BID [facility] Last Admin: 05/13/19 21:56 Dose: 1 applic Doxazosin Mesylate (Cardura -) 2 mg PO HS [facility] Last Admin: 05/13/19 21:57 Dose: 2 mg Fluticasone Propionate (Flonase -) 1 spray NS DAILY [facility] Last Admin: 05/13/19 12:14 Dose: Not Given Gabapentin (Neurontin -) 300 mg PO TID [facility] Last Admin: 05/14/19 06:17 Dose: 300 mg Heparin Sodium (Porcine) (Heparin -) 5,000 unit SQ TID [facility] Last Admin: 05/14/19 06:17 Dose: 5,000 unit Sodium Chloride (Normal Saline -) 250 mls @ 3,000 mls/hr IV PRN PRN PRN Reason: Hypotension during Dialysis Stop: 05/14/19 16:47 Insulin Aspart (Novolog Vial Sliding Scale -) 1 vial SQ TIDAC [facility]; Protocol Last Admin: 05/14/19 06:17 Dose: Not Given Insulin Detemir (Levemir Vial) 3 units SQ HS [facility] Last Admin: 05/13/19 21:57 Dose: 3 units Lidocaine (Lidoderm Patch -) 1 patch TP DAILY [facility] Last Admin: 05/13/19 10:06 Dose: 1 patch Losartan Potassium (Cozaar -) 25 mg PO DAILY [facility] Last Admin: 05/13/19 10:07 Dose: 25 mg Methadone HCl (Dolophine -) 2.5 mg PO TID [facility] Last Admin: 05/14/19 06:17 Dose: 2.5 mg Miscellaneous (Lidoderm Patch Removal) 1 each MC DAILY@2200 [facility] Last Admin: 05/13/19 21:57 Dose: 1 each Multivit/Ca Carb/B Cmplx/FA/Prenat (Nephro-Guilherme -) 1 tablet PO DAILY [facility] Last Admin: 05/13/19 11:08 Dose: 1 tablet Nifedipine (Procardia Xl -) 90 mg PO DAILY [facility] Last Admin: 05/13/19 10:07 Dose: 90 mg Tiotropium [place] (Spiriva Respimat) 2 puff IH DAILY [facility] Last Admin: 05/13/19 10:11 Dose: 2 puff Trazodone HCl 400 mg/ (Trazodone HCl 50 mg) 450 mg PO HS [facility] Last Admin: 05/13/19 21:57 Dose: 450 mg A/P Volume Overload Acute on Chronic Diastolic Heart Failure Anemia s/p 4 unit PRBC transfusion r/o Transfusion Associated Circulatory Overload ESRD on HD HTN DM Bilateral BKA h/o Osteomyelitis - HD per renal with ultrafiltration, likely needs a lower dry weight - repeat CXR in AM - O2 to keep Spo2 >90% - inhaled bronchodilators as needed - will need f/u CT chest in 6-8 weeks when euvolemic - DVT prophylaxis
[2019-05-14 10:57] LABS: ALBUMIN 2.4 g/dl (3.4-5.0); BILIRUBIN,TOTAL 0.6 mg/dL (0.2-1); BLOOD UREA NITROGEN 49.8 mg/dL (7-18); CALCIUM 7.8 mg/dL (8.5-10.1); CREATININE 4.2 mg/dL (0.55-1.3); PHOSPHOROUS 4.8 mg/dL (2.5-4.9); POTASSIUM 5.4 mmol/L (3.5-5.1); TOT PROT 6.4 g/dl (6.4-8.2)
--- NOTE | 2019-05-14 12:59 | PN ---
Progress Note, Physician History of Present Illness: stable no new issues breathing improving - Current Medication List Current Medications: Active Medications Albuterol Sulfate (Ventolin 0.083% Nebulizer Soln -) 1 amp NEB RQID [facility] Last Admin: 05/14/19 12:33 Dose: Not Given Bacitracin (Bacitracin -) 1 applic TP BID [facility] Last Admin: 05/13/19 21:56 Dose: 1 applic Doxazosin Mesylate (Cardura -) 2 mg PO HS [facility] Last Admin: 05/13/19 21:57 Dose: 2 mg Fluticasone Propionate (Flonase -) 1 spray NS DAILY [facility] Last Admin: 05/13/19 12:14 Dose: Not Given Gabapentin (Neurontin -) 300 mg PO TID [facility] Last Admin: 05/14/19 06:17 Dose: 300 mg Heparin Sodium (Porcine) (Heparin -) 5,000 unit SQ TID [facility] Last Admin: 05/14/19 06:17 Dose: 5,000 unit Sodium Chloride (Normal Saline -) 250 mls @ 3,000 mls/hr IV PRN PRN PRN Reason: Hypotension during Dialysis Stop: 05/14/19 16:47 Insulin Aspart (Novolog Vial Sliding Scale -) [facility] Last Admin: 05/14/19 06:17 Dose: Not Given Insulin Detemir (Levemir Vial) 3 units SQ [facility] Last Admin: 05/13/19 21:57 Dose: 3 units Lidocaine (Lidoderm Patch -) 1 patch TP DAILY [facility] Last Admin: 05/13/19 10:06 Dose: 1 patch Losartan Potassium (Cozaar -) 25 mg PO DAILY [facility] Last Admin: 05/13/19 10:07 Dose: 25 mg Methadone HCl (Dolophine -) 2.5 mg PO TID [facility] Last Admin: 05/14/19 06:17 Dose: 2.5 mg Miscellaneous (Lidoderm Patch Removal) 1 each MC DAILY@2200 [facility] Last Admin: 05/13/19 21:57 Dose: 1 each Multivit/Ca Carb/B Cmplx/FA/Prenat (Nephro-Guilherme -) 1 tablet PO DAILY [facility] Last Admin: 05/13/19 11:08 Dose: 1 tablet Nifedipine (Procardia Xl -) 90 mg PO DAILY [facility] Last Admin: 01/15/20 10:07 Dose: 90 mg Tiotropium [place] (Spiriva Respimat) 2 puff IH DAILY [facility] Last Admin: 05/13/19 10:11 Dose: 2 puff Trazodone HCl 400 mg/ (Trazodone HCl 50 mg) 450 mg PO HS [facility] Last Admin: 05/13/19 21:57 Dose: 450 mg - Objective Vital Signs: Vital Signs Temperature 97.7 F 05/14/19 05:41 Pulse Rate 104 H 05/14/19 12:10 Respiratory Rate 18 05/14/19 12:10 Blood Pressure 171/86 H 05/14/19 12:10 O2 Sat by Pulse Oximetry (%) 96 05/13/19 21:00 Constitutional: Yes: No Distress, Calm Cardiovascular: Yes: S1, S2 Respiratory: Yes: Regular, Poor Air Entry Gastrointestinal: Yes: Normal Bowel Sounds, Soft Musculoskeletal: Yes: WNL Extremities: Yes: Other Neurological: Yes: Alert, Oriented Psychiatric: Yes: Alert, Oriented Labs: CBC, BMP 05/14/19 09:45 05/14/19 09:45 INR, PTT INR 1.38 (0.83-1.09) H 05/11/19 13:30 Assessment/Plan Volume Overload Acute on Chronic Diastolic Heart Failure Anemia s/p 4 unit PRBC transfusion r/o Transfusion Associated Circulatory Overload ESRD on HD HTN DM Bilateral BKA h/o Osteomyelitis bleeding per rectum plan continue current mgmt close watch dialysis rest as per the team
--- NOTE | 2019-05-14 13:34 | PN ---
Physical Exam: SUBJECTIVE: Patient seen and examined in HD suite. Overnight there were no new events. He offers no complaints today. OBJECTIVE: Vital Signs Temp Pulse Resp BP Pulse Ox 99.0 F 81 20 195/98 H 96 05/14/19 22:12 05/14/19 22:12 05/14/19 22:25 05/14/19 22:12 05/14/19 09:00 GENERAL: AOx3, in no acute distress. Carbon-fiber prosthesis at bedside. HEAD: NCAT EYES: ROBERTH, EOMI, conjunctiva clear. ENT: Ears normal, nares patent, oropharynx clear without exudates. Moist mucous membranes. NECK: Normal range of motion, supple without lymphadenopathy, JVD, or masses. LUNGS: Crackles at bases BL. No wheezes, and no crackles. No accessory muscle use. HEART: RRR s1 s2 ABDOMEN: Soft, BS present in all 4 quadrants, non-distended, no JVD, MUSCULOSKELETAL: No bony deformities or tenderness. No CVA tenderness. UPPER EXTREMITIES: LEFT arm AV fistula. 2+ pulses, warm, well-perfused. No cyanosis. No clubbing. No peripheral edema. LOWER EXTREMITIES: BL BKA, some dryness BL and area of chaffing on LEFT nub. NEUROLOGICAL: RIGHT 5/5, LEFT 4/5 strength. Cranial nerves II-XII intact. Normal speech. Gait not appreciated. PSYCHIATRIC: Not very cooperative and argumentative. Good eye contact. Appropriate mood and affect. SKIN: Warm, dry, normal turgor, no rashes or lesions noted, normal capillary refill. Laboratory Results - last 24 hr 05/12/19 05/13/19 05/14/19 14:00 17:09 06:16 WBC RBC Hgb Hct MCV MCH MCHC RDW Plt Count MPV PTT (Actin FS) Sodium Potassium Chloride Carbon Dioxide Anion Gap BUN Creatinine Est GFR (CKD-EPI)AfAm Est GFR (CKD-EPI)NonAf POC Glucometer 144 113 Random Glucose Calcium Phosphorus Erythropoietin 99.1 H Total Bilirubin AST ALT Alkaline Phosphatase Total Protein Albumin Blood Type Antibody Screen 05/14/19 05/14/19 05/14/19 09:45 09:45 09:45 WBC 9.1 RBC 2.63 L Hgb 7.6 L Hct 23.4 L MCV 88.8 MCH 29.0 MCHC 32.6 RDW 17.1 H Plt Count 317 MPV 7.5 PTT (Actin FS) Sodium 138 Potassium 5.4 H Chloride 104 Carbon Dioxide 30 Anion Gap 4 L BUN 49.8 H Creatinine 4.2 H Est GFR (CKD-EPI)AfAm 16.30 Est GFR (CKD-EPI)NonAf 14.07 POC Glucometer Random Glucose 145 H Calcium 7.8 L Phosphorus 4.8 Erythropoietin Total Bilirubin 0.6 AST 9 L ALT 21 Alkaline Phosphatase 175 H Total Protein 6.4 Albumin 2.4 L Blood Type B POSITIVE Antibody Screen Negative 05/14/19 10:30 WBC RBC Hgb Hct MCV MCH MCHC RDW Plt Count MPV PTT (Actin FS) 42.7 H Sodium Potassium Chloride Carbon Dioxide Anion Gap BUN Creatinine Est GFR (CKD-EPI)AfAm Est GFR (CKD-EPI)NonAf POC Glucometer Random Glucose Calcium Phosphorus Erythropoietin Total Bilirubin AST ALT Alkaline Phosphatase Total Protein Albumin Blood Type Antibody Screen Active Medications Bacitracin (Bacitracin -) 1 applic TP BID [facility] Last Admin: 05/14/19 22:56 Dose: 1 applic Doxazosin Mesylate (Cardura -) 2 mg PO HS [facility] Last Admin: 05/14/19 22:57 Dose: 2 mg Fluticasone Propionate (Flonase -) 1 spray NS DAILY [facility] Last Admin: 05/14/19 15:32 Dose: Not Given Gabapentin (Neurontin -) 300 mg PO TID [facility] Last Admin: 05/14/19 22:58 Dose: 300 mg Heparin Sodium (Porcine) (Heparin -) 5,000 unit SQ TID [facility] Last Admin: 05/14/19 22:57 Dose: 5,000 unit Insulin Aspart (Novolog Vial Sliding Scale -) 1 vial SQ TIDAC [facility]; Protocol Last Admin: 05/14/19 16:11 Dose: Not Given Insulin Detemir (Levemir Vial) 3 units SQ [facility] Last Admin: 05/14/19 22:57 Dose: 3 units Lidocaine (Lidoderm Patch -) 1 patch TP DAILY [facility] Last Admin: 05/14/19 14:14 Dose: 1 patch Losartan Potassium (Cozaar -) 25 mg PO DAILY [facility] Last Admin: 05/14/19 14:13 Dose: Not Given Methadone HCl (Dolophine -) 2.5 mg PO TID [facility] Last Admin: 05/14/19 22:57 Dose: 2.5 mg Miscellaneous (Lidoderm Patch Removal) 1 each MC DAILY@2200 [facility] Last Admin: 05/14/19 22:58 Dose: 1 each Multivit/Ca Carb/B Cmplx/FA/Prenat (Nephro-Guilherme -) 1 tablet PO DAILY [facility] Last Admin: 05/14/19 14:16 Dose: 1 tablet Nifedipine (Procardia Xl -) 90 mg PO DAILY [facility] Last Admin: 05/14/19 14:13 Dose: Not Given Tiotropium [place] (Spiriva Respimat) 2 puff IH DAILY [facility] Last Admin: 05/14/19 15:32 Dose: Not Given Trazodone HCl 400 mg/ (Trazodone HCl 50 mg) 450 mg PO HS [facility] Last Admin: 05/14/19 22:57 Dose: 450 mg Vitamin A/Vitamin D (Vitamin A & D Top Oint -) 1 applic TP Q6HPO [facility] Last Admin: 05/15/19 00:14 Dose: 1 applic ASSESSMENT/PLAN: 63 y/o male PMH HTN, insulin treated DM, ESRD (TTS), PVD s/p BL BKA (2018) and MRSA bacteremia brought in for anemia. Overnight chest CT suspicous of blood clot but not likely given final read. Now experiencing sudden onset SOB consistent with crackles on PE and HD yesterday with removal of 3kg. No fevers recorded. CXR this AM still with congestive changes. # SOB - Pulm already consulted: CT chest findings and clinical exam more consistent with volume overload, mediastinal lymphadenopathy and sabino hepatis can be seen with decompensated heart failure or volume overload/TACO - HD per renal with ultrafiltration, likely needs a lower dry weight - HD today with continued aggressive UF; 3.5L removal - F/u am CXR # Lung/mediastinal mass - Lymphoma vs lung cancer - Pulmonary consult noted as above; more likely atelectasis - F/u heme/onc recommendation # Normocytic anemia - Repeat afternoon CBC demonstrates stable h/h - Most likely ACD however poss hemolysis given low Hb despite transfusion - LDH normal and haptoglobin pending - Heme/onc consulted: Severe ACD and iron studies s/o chronic disease; stool occult is negative # ESRD - Renal consulted: Dialysis tomorrow. - S/p PRBC transfusion, Hgb improved to > 8 today. Will check CBC today with HD. - 1.2L fluid restriction # Chronic pain - Methadone 2.5 mg PO TID - Lidocaine patch # DM - Hold home regimen - ISS ACHS with gentle modification/please see sliding scale instructions - Insulin Levemir lowered to 3 units with supper - Gabapentin 300 mg PO TID # HTN - Cont. curent home regimen: Nifedipine ER 90 mg PO QD (changed from 60 mg), doxazosin 2 mg PO HS, ADDED Losartan 25 mg PO QD # Possible PE, ruled out - Overnight read of, "subsegmental peripheral right lung pulmonary embolism, no saddle embolus, interstitial edema, some infiltrates likely infection and a possibility for malignancy in the lungs, because the left heart border had suspicions for small cell carcinoma with mediastinal lymphadenopathy and sabino hepatis. There is concern for Lymphoma with recommendation for CT A/P (non- emergent)." - Pt hemodynamically stable - D dimer 1,438 - Pt elected for PO anticoag with Eliquis after lengthy discussion (please see attending note) - Pulm consulted: Do not suspect PE at this time. CT chest findings and clinical exam more consistent with volume overload, mediastinal lymphadenopathy and sabino hepatis can be seen with decompensated heart failure or volume overload/TACO. Do not suspect lung mass, more likely atelectasis. Can d/c anticoagulation - US of LE to r/o DVT. - F/u CT in 6-8 weeks # E coli in urine - < 10k cfu - Pt asymptomatic # F/E/N - PO; 1.2L fluid restriction - Cont. to monitor - Low sodium, diabetic diet # DVT prophylaxis - Heparin SQ # Disposition - Med/surg Rivas Coon MD Visit type - Emergency Visit Emergency Visit: No - New Patient This patient is new to me today: No - Critical Care Critical Care patient: No ATTENDING PHYSICIAN STATEMENT I saw and evaluated the patient. I reviewed the resident's note and discussed the case with the resident. I agree with the resident's findings and plan as documented. SUBJECTIVE: OBJECTIVE: ASSESSMENT AND PLAN:
--- NOTE | 2019-05-14 13:52 | PN ---
Progress Note (short form) - Note Progress Note: Renal follow up for ESRD on HD Seen and examined during dialysis awake and alert offers no acute complaints BP stable, UF goal ~3L wants to come off early due to back pain does not like his current diet Vital Signs Temperature 97.7 F 05/14/19 05:41 Pulse Rate 104 H 05/14/19 12:10 Respiratory Rate 18 05/14/19 12:10 Blood Pressure 171/86 H 05/14/19 12:10 O2 Sat by Pulse Oximetry (%) 96 05/13/19 21:00 Intake & Output 05/11/19 05/12/19 05/13/19 05/14/19 23:59 23:59 23:59 23:59 Intake Total 7753 458 8353 540 Output Total 2550 3400 Balance -1373 -2720 1737 540 Weight 80.739 kg 81.647 kg 81.703 kg 81.647 kg NAD RRR CTA soft NT/ND no LE edema. + bilateral BKA CBC, BMP 05/14/19 09:45 05/14/19 09:45 Current Medications Albuterol Sulfate (Ventolin 0.083% Nebulizer Soln -) 1 amp NEB RQID [facility] Last Admin: 05/14/19 12:33 Dose: Not Given Bacitracin (Bacitracin -) 1 applic TP BID [facility] Last Admin: 05/13/19 21:56 Dose: 1 applic Doxazosin Mesylate (Cardura -) 2 mg PO HS [facility] Last Admin: 05/13/19 21:57 Dose: 2 mg Fluticasone Propionate (Flonase -) 1 spray NS DAILY [facility] Last Admin: 05/13/19 12:14 Dose: Not Given Gabapentin (Neurontin -) 300 mg PO TID [facility] Last Admin: 05/14/19 06:17 Dose: 300 mg Heparin Sodium (Porcine) (Heparin -) 5,000 unit SQ TID [facility] Last Admin: 05/14/19 06:17 Dose: 5,000 unit Sodium Chloride (Normal Saline -) 250 mls @ 3,000 mls/hr IV PRN PRN PRN Reason: Hypotension during Dialysis Stop: 05/14/19 16:47 Insulin Aspart (Novolog Vial Sliding Scale -) 1 vial SQ TIDAC [facility]; Protocol Last Admin: 05/14/19 06:17 Dose: Not Given Insulin Detemir (Levemir Vial) 3 units SQ HS [facility] Last Admin: 05/13/19 21:57 Dose: 3 units Lidocaine (Lidoderm Patch -) 1 patch TP DAILY [facility] Last Admin: 05/13/19 10:06 Dose: 1 patch Losartan Potassium (Cozaar -) 25 mg PO DAILY [facility] Last Admin: 05/13/19 10:07 Dose: 25 mg Methadone HCl (Dolophine -) 2.5 mg PO TID [facility] Last Admin: 05/14/19 06:17 Dose: 2.5 mg Miscellaneous (Lidoderm Patch Removal) 1 each MC DAILY@2200 [facility] Last Admin: 05/13/19 21:57 Dose: 1 each Multivit/Ca Carb/B Cmplx/FA/Prenat (Nephro-Guilherme -) 1 tablet PO DAILY [facility] Last Admin: 05/13/19 11:08 Dose: 1 tablet Nifedipine (Procardia Xl -) 90 mg PO DAILY [facility] Last Admin: 05/13/19 10:07 Dose: 90 mg Tiotropium [place] (Spiriva Respimat) 2 puff IH DAILY [facility] Last Admin: 05/13/19 10:11 Dose: 2 puff Trazodone HCl 400 mg/ (Trazodone HCl 50 mg) 450 mg PO HS [facility] Last Admin: 05/13/19 21:57 Dose: 450 mg 63 year old gentleman with history of ESRD on HD, DM, hypertension, PVD s/p bilateral BKA presented from HD unit with worsening anemia and shortness of breath. 1. ESRD on HD 2. Acute on Chronic anemia (negative stool occult blood, + recent infection may have lead to DARIAN resistance) 3. Shortness of breath secondary to fluid overload 4. Fluid overload volume status improved. Tolerated dialysis with aggressive UF next dialysis is Saturday Diet changed to diabetic diet per patients request. Will request nutrition evaluation. Continue fluid restriction Start Torsemide 80mg daily Will give ADRIAN with HD for anemia stool occult blood is negative Thank you Miguel Jansen DO
[2019-05-14] MEDS: NIFEdipine E.R. 90 MG TABLET PO SCH (14:13)
[2019-05-14] MEDS: LOSARTAN POTASSIUM 25 MG TABLET PO SCH (14:13)
[2019-05-14] MEDS: BACITRACIN 15 GM TUBE TOPICAL OINTMENT TP SCH ×2 (14:13→22:56)
[2019-05-14] MEDS: LIDOCAINE 5% TOPICAL PATCH TP SCH (14:14)
[2019-05-14] MEDS: VITAMIN B COMP W-C 1 EA TABLET PO SCH (14:16)
[2019-05-14] MEDS: FLUTICASONE PROP 0.05% 16 GM NASAL SPRAY NS SCH (15:32)
[2019-05-14] MEDS: TIOTROPIUM BROMIDE 2.5 MCG (SPIRIVA) RESPIMAT INHALER IH SCH (15:32)
[2019-05-14] MEDS: VITAMINS A AND D TOPICAL OINTMENT 60 GM TUBE TP SCH (18:18)
--- NOTE | 2019-05-14 20:05 | PN ---
Teaching Attending Note Name of Resident: Rivas Coon ATTENDING PHYSICIAN STATEMENT I saw and evaluated the patient. I reviewed the resident's note and discussed the case with the resident. I agree with the resident's findings and plan as documented. SUBJECTIVE: patient is getting HD again. removing 3.5 liter today Vital Signs Temperature 97.7 F 05/14/19 15:10 Pulse Rate 92 H 05/14/19 15:10 Respiratory Rate 20 05/14/19 15:10 Blood Pressure 150/63 05/14/19 15:10 O2 Sat by Pulse Oximetry (%) 96 05/14/19 09:00 GENERAL: The patient is awake, alert, and fully oriented, labored breathing. HEAD: Normal with no signs of trauma. EYES: PERRL, extraocular movements intact, sclera anicteric, conjunctiva clear. ENT: Ears normal, oropharynx clear without exudates, moist mucous membranes. NECK: Trachea midline, full range of motion, supple. LUNGS: decreased Breath sounds bl, positive for wheezing continues but improving , no crackles, no accessory muscle use. HEART: Regular rate and rhythm, S1, S2 without murmur, rub or gallop. ABDOMEN: Soft, nontender, nondistended, normoactive bowel sounds, no guarding, no rebound, no hepatosplenomegaly, no masses. EXTREMITIES: 2+ pulses, warm, well-perfused, no edema. NEUROLOGICAL: Cranial nerves II through XII grossly intact. Normal speech, gait not observed. PSYCH: Normal mood, normal affect. SKIN: Warm, dry, normal turgor, no rashes or lesions noted . CBCD WBC 9.1 K/mm3 (4.0-10.0) 05/14/19 09:45 RBC 2.63 M/mm3 (4.00-5.60) L 05/14/19 09:45 Hgb 7.6 GM/dL (11.7-16.9) L 05/14/19 09:45 Hct 23.4 % (35.4-49) L 05/14/19 09:45 MCV 88.8 fl (80-96) 05/14/19 09:45 MCHC 32.6 g/dl (32.0-35.9) 05/14/19 09:45 RDW 17.1 % (11.9-15.9) H 05/14/19 09:45 Plt Count 317 K/MM3 (134-434) 05/14/19 09:45 MPV 7.5 fl (7.5-11.1) 05/14/19 09:45 CMP Sodium 138 mmol/L (136-145) 05/14/19 09:45 Potassium 5.4 mmol/L (3.5-5.1) H 05/14/19 09:45 Chloride 104 mmol/L (98-107) 05/14/19 09:45 Carbon Dioxide 30 mmol/L (21-32) 05/14/19 09:45 Anion Gap 4 MMOL/L (8-16) L 05/14/19 09:45 BUN 49.8 mg/dL (7-18) H 05/14/19 09:45 Creatinine 4.2 mg/dL (0.55-1.3) H 05/14/19 09:45 Random Glucose 145 mg/dL (74-106) H 05/14/19 09:45 Calcium 7.8 mg/dL (8.5-10.1) L 05/14/19 09:45 Total Bilirubin 0.6 mg/dL (0.2-1) 05/14/19 09:45 AST 9 U/L (15-37) L 05/14/19 09:45 ALT 21 U/L (13-61) 05/14/19 09:45 Alkaline Phosphatase 175 U/L (45-117) H 05/14/19 09:45 Total Protein 6.4 g/dl (6.4-8.2) 05/14/19 09:45 Albumin 2.4 g/dl (3.4-5.0) L 05/14/19 09:45 CARDIAC ENZYMES Creatine Kinase 84 U/L (26-308) 05/09/19 08:14 Troponin I < 0.02 ng/ml (0.00-0.05) 05/09/19 08:14 Current Medications Generic Name Dose Route Start Last Admin Trade Name Freq PRN Reason Stop Dose Admin Bacitracin 1 applic 05/12/19 11:15 05/14/19 14:13 Bacitracin - TP Not Given BID [facility] Doxazosin Mesylate 2 mg 05/09/19 22:00 05/13/19 21:57 Cardura - PO 2 mg HS [facility] Administration Fluticasone Propionate 1 spray 05/09/19 10:00 05/14/19 15:32 Flonase - NS Not Given DAILY [facility] Gabapentin 300 mg 05/09/19 14:00 05/14/19 14:17 Neurontin - PO 300 mg TID [facility] Administration Heparin Sodium (Porcine) 5,000 unit 05/12/19 22:00 05/14/19 14:17 Heparin - SQ Not Given TID [facility] Insulin Aspart 1 vial 05/11/19 14:51 05/14/19 16:11 Novolog Vial Sliding Scale - SQ Not Given TIDAC [facility] Protocol Insulin Detemir 3 units 05/11/19 09:57 05/13/19 21:57 Levemir Vial SQ 3 units HS [facility] Administration Lidocaine 1 patch 05/09/19 10:00 05/14/19 14:14 Lidoderm Patch - TP 1 patch DAILY [facility] Administration Losartan Potassium 25 mg 05/13/19 10:00 05/14/19 14:13 Cozaar - PO Not Given DAILY [facility] Methadone HCl 2.5 mg 05/09/19 14:00 05/14/19 14:16 Dolophine - PO 2.5 mg TID [facility] Administration Miscellaneous 1 each 05/09/19 22:00 05/13/19 21:57 Lidoderm Patch Removal MC 1 each DAILY@2200 [facility] Administration Multivit/Ca Carb/B Cmplx/FA/Prenat 1 tablet 05/09/19 10:00 05/14/19 14:16 Nephro-Guilherme - PO 1 tablet DAILY [facility] Administration Nifedipine 90 mg 05/13/19 10:00 05/14/19 14:13 Procardia Xl - PO Not Given DAILY [facility] Tiotropium [place] 2 puff 05/10/19 10:00 05/14/19 15:32 Spiriva Respimat IH Not Given DAILY [facility] Trazodone HCl 400 mg/ 450 mg 05/09/19 22:15 05/13/19 21:57 Trazodone HCl 50 mg PO 450 mg HS [facility] Administration Vitamin A/Vitamin D 1 applic 05/14/19 18:00 05/14/19 18:18 Vitamin A & D Top Oint - TP 1 applic Q6HPO [facility] Administration Home Medications Medication Instructions Recorded Fluticasone Prop 0.05% Nasal 1 - 2 spray NS DAILY #1 spray.pump 08/23/17 [Flonase -] Lidocaine 5% Patch [Lidoderm -] 1 patch TP DAILY patch 10/06/17 Lidocaine Patch Removal [Lidoderm 1 each MC DAILY@2200 each 10/06/17 Patch Removal] traZODone HCL [Desyrel -] 450 mg PO HS 04/07/19 Methadone [Dolophine -] 2.5 mg PO TID 04/16/19 Doxazosin Mesylate [Cardura -] 2 mg PO HS #30 tablet 04/20/19 Gabapentin [Neurontin -] 300 mg PO TID #90 capsule 04/20/19 Insulin Sliding Scale [Novolog 1 vial SQ TIDAC #1 vial 04/20/19 Vial Sliding Scale -] Nifedipine ER [Procardia XL -] 60 mg PO DAILY #30 tab.er.24 04/20/19 Vitamin B Comp W-C [Nephro-Guilherme -] 1 tablet PO DAILY #30 tablet 04/20/19 Insulin (Levemir) [Levemir Vial] 12 unit SQ HS 05/10/19 Doxazosin Mesylate 4 mg PO DAILY 05/11/19 Gabapentin 100 mg PO BID 05/11/19 Nifedipine ER [Procardia Xl -] 90 mg PO DAILY 05/11/19 Microbiology 05/09/19 10:14 Urine - Urine Clean Catch Urine Culture - Final Gram Negative [place] CT for mediastinal lymphadenopathy Assessment and plan: patient is a 63 y/o man with h/o ESRD on HD ([facility]), IDDM, HTN, PVD s/p L BKA, Diabetic neuropathy, MRSA bacteremia , 10/14, R IJ thrombus, 10/14 , R foot OM and necrotizing fasciitis , s/p R BKA 04/16, MSSA bacteremia , normocytic anemia ,who presented due to anemia. # Acute pulmonary edema with SOB; continue HD as needed, getting HD today again. removing 3.5 liter as per nephro. will check cxr in am # Acute on chronic normocytic anemia: LDH nl, hapto pending. unlikely hemolysis # ESRD: HD per renal, nephro on the case. # DM: with hypoglycemia this am. continue with SS with coverage , SSI coverage and no HS coverage , sensitive to insulin # Hx HTN: cont nifedipine 90 mg (increased) , and cardura, losartan and monitor K. d/w renal #Chronic pain: cont methadone and lidocaine patch DVT Px: heparin sq
[2019-05-14] MEDS ORDERED: traZODone HCL 50 MG TABLET (FP) ONE (22:15)
[2019-05-14] MEDS ORDERED: traZODone HCL 100 MG TABLET (FP) ONE (22:15)
[2019-05-14] MEDS: INSULIN (LEVEMIR) 100 UNITS/ML UNITS SQ SCH (22:57)
[2019-05-14] MEDS: TRAZODONE HCL PO SCH (22:57)
[2019-05-14] MEDS: DOXAZOSIN MESYLATE 2 MG TABLET PO SCH (22:57)
[2019-05-14] MEDS: LIDOCAINE PATCH REMOVAL MC SCH (22:58)
[2019-05-15] MEDS: VITAMINS A AND D TOPICAL OINTMENT 60 GM TUBE TP SCH ×3 (00:14→12:00)
[2019-05-15] MEDS ORDERED: INSULIN (NOVOLOG) ASPART 100 UNITS/ML 10ML VIAL ONE (06:14)
[2019-05-15] MEDS: INSULIN SLIDING SCALE (NOVOLOG) 1 VIAL SQ SCH ×3 (06:40→16:54)
[2019-05-15] MEDS: METHADONE HCL 5 MG TABLET PO SCH ×3 (06:40→21:32)
[2019-05-15] MEDS: GABAPENTIN 300 MG CAPSULE PO SCH ×3 (06:40→21:32)
[2019-05-15] MEDS: HEPARIN NA (PORCINE) 5,000 UNITS/ML 1ML VIAL SQ SCH ×3 (06:40→21:33)
[2019-05-15] MEDS ORDERED: ALBUTEROL SO4 2.5/IPRATROPIUM 0.5 INH SOL 3 ML VIAL.NEB. NEB ONE (09:38)
[2019-05-15] MEDS ORDERED: ALBUTEROL SO4 2.5/IPRATROPIUM 0.5 INH SOL 3 ML VIAL.NEB. NEB STA (09:50)
[2019-05-15] MEDS: VITAMIN B COMP W-C 1 EA TABLET PO SCH (11:13)
[2019-05-15] MEDS: LIDOCAINE 5% TOPICAL PATCH TP SCH (11:13)
[2019-05-15] MEDS: LOSARTAN POTASSIUM 25 MG TABLET PO SCH (11:13)
[2019-05-15] MEDS: NIFEdipine E.R. 90 MG TABLET PO SCH (11:14)
[2019-05-15] MEDS: FLUTICASONE PROP 0.05% 16 GM NASAL SPRAY NS SCH (11:14)
[2019-05-15] MEDS: ALBUTEROL SO4 2.5/IPRATROPIUM 0.5 INH SOL 3 ML VIAL.NEB. NEB SCH ×4 (12:00→19:52)
--- NOTE | 2019-05-15 12:30 | PN ---
Progress Note (short form) - Note Progress Note: PULMONARY States breathing is poor today. "Why are they doing a daily cxr"? Appears stable vss/afebrile Gen: less tachypneic at rest Heart: RRR Lung: scattered rhonchi Abd: soft, nontender Ext: bilateral BKA Chart/labs/meds/notes/images reviewed A/P Volume Overload Acute on Chronic Diastolic Heart Failure Anemia s/p 4 unit PRBC transfusion r/o Transfusion Associated Circulatory Overload ESRD on HD HTN DM Bilateral BKA h/o Osteomyelitis - HD per renal with ultrafiltration - O2 to keep Spo2 >90% - inhaled bronchodilators as needed - will need f/u CT chest in 6-8 weeks when euvolemic - DVT prophylaxis Mariama Lema MD
[2019-05-15] MEDS ORDERED: SODIUM CHLORIDE 250 ML IV PRN (12:47)
--- NOTE | 2019-05-15 13:11 | PN ---
Progress Note (short form) - Note Progress Note: Renal follow up for ESRD on HD Seen and examined at the bedside reports increased dyspnea this am no chest pain or cough No fever, chills s/p HD yesterday nurse reports adherence to fluid restriction Vital Signs Temperature 98 F 05/15/19 05:10 Pulse Rate 78 05/15/19 05:10 Respiratory Rate 05/15/19 05:10 Blood Pressure 180/90 H 05/15/19 05:10 O2 Sat by Pulse Oximetry (%) 96 05/14/19 09:00 Intake & Output 05/12/19 05/13/19 05/14/19 05/15/19 23:59 23:59 23:59 23:59 Intake Total 680 1737 1230 Output Total 3400 Balance -2720 1737 1230 Weight 81.647 kg 81.703 kg 81.647 kg 80.286 kg NAD RRR CTA soft NT/ND no LE edema. + bilateral BKA CBC, BMP 05/14/19 09:45 05/14/19 09:45 Current Medications Albuterol/Ipratropium (Duoneb -) 1 amp NEB RQID [facility] Last Admin: 05/15/19 12:00 Dose: Not Given Bacitracin (Bacitracin -) 1 applic TP BID [facility] Last Admin: 05/14/19 22:56 Dose: 1 applic Doxazosin Mesylate (Cardura -) 2 mg PO HS [facility] Last Admin: 05/14/19 22:57 Dose: 2 mg Fluticasone Propionate (Flonase -) 1 spray NS DAILY [facility] Last Admin: 05/15/19 11:14 Dose: Not Given Gabapentin (Neurontin -) 300 mg PO TID [facility] Last Admin: 05/15/19 06:40 Dose: 300 mg Heparin Sodium (Porcine) (Heparin -) 5,000 unit SQ TID [facility] Last Admin: 05/15/19 06:40 Dose: 5,000 unit Sodium Chloride (Normal Saline -) 250 mls @ 3,000 mls/hr IV PRN PRN PRN Reason: Hypotension during Dialysis Stop: 05/16/19 12:47 Insulin Aspart (Novolog Vial Sliding Scale -) 1 vial SQ TIDAC [facility]; Protocol Last Admin: 05/15/19 06:40 Dose: Not Given Insulin Detemir (Levemir Vial) 3 units SQ [facility] Last Admin: 05/14/19 22:57 Dose: 3 units Lidocaine (Lidoderm Patch -) 1 patch TP DAILY [facility] Last Admin: 05/15/19 11:13 Dose: 1 patch Losartan Potassium (Cozaar -) 25 mg PO DAILY [facility] Last Admin: 05/15/19 11:13 Dose: 25 mg Methadone HCl (Dolophine -) 2.5 mg PO TID [facility] Last Admin: 05/15/19 06:40 Dose: 2.5 mg Miscellaneous (Lidoderm Patch Removal) 1 each MC DAILY@2200 [facility] Last Admin: 05/14/19 22:58 Dose: 1 each Multivit/Ca Carb/B Cmplx/FA/Prenat (Nephro-Guilherme -) 1 tablet PO DAILY [facility] Last Admin: 05/15/19 11:13 Dose: 1 tablet Nifedipine (Procardia Xl -) 90 mg PO DAILY [facility] Last Admin: 05/15/19 11:14 Dose: 90 mg Tiotropium [place] (Spiriva Respimat) 2 puff IH DAILY [facility] Last Admin: 05/14/19 15:32 Dose: Not Given Trazodone HCl 400 mg/ (Trazodone HCl 50 mg) 450 mg PO HS [facility] Last Admin: 05/14/19 22:57 Dose: 450 mg Vitamin A/Vitamin D (Vitamin A & D Top Oint -) 1 applic TP Q6HPO [facility] Last Admin: 05/15/19 06:40 Dose: 1 applic 63 year old gentleman with history of ESRD on HD, DM, hypertension, PVD s/p bilateral BKA presented from HD unit with worsening anemia and shortness of breath. 1. ESRD on HD 2. Acute on Chronic anemia (negative stool occult blood, + recent infection may have lead to ADRIAN resistance) 3. Shortness of breath secondary to fluid overload 4. Fluid overload For isolated UF today with planned 2.5L removal next dialysis is Saturday with aggressive UF as well Diet changed to diabetic diet per patients request. Will request nutrition evaluation. Continue fluid restriction Start Torsemide 80mg daily Will give ADRIAN with HD for anemia stool occult blood is negative Thank you Miguel Jansen DO
--- NOTE | 2019-05-15 13:35 | PN ---
Physical Exam: SUBJECTIVE: Patient seen and examined at bedside. Overnight there were no acute events. He continues to feel SOB in AM. OBJECTIVE: Vital Signs Period Temp Pulse Resp BP Sys/Gutierrez Pulse Ox Last 24 Hr 97.7 F-99.0 F 78-92 20-20 150-195/63-98 GENERAL: AOx3, in no acute distress. Carbon-fiber prosthesis at bedside. HEAD: NCAT EYES: ROBERTH, EOMI, conjunctiva clear. ENT: Ears normal, nares patent, oropharynx clear without exudates. Moist mucous membranes. NECK: Normal range of motion, supple without lymphadenopathy, JVD, or masses. LUNGS: Crackles at bases BL. No wheezes, and no crackles. No accessory muscle use. HEART: RRR s1 s2 ABDOMEN: Soft, BS present in all 4 quadrants, non-distended, no JVD, MUSCULOSKELETAL: No bony deformities or tenderness. No CVA tenderness. UPPER EXTREMITIES: LEFT arm AV fistula. 2+ pulses, warm, well-perfused. No cyanosis. No clubbing. No peripheral edema. LOWER EXTREMITIES: BL BKA, some dryness BL and area of chaffing on LEFT nub. NEUROLOGICAL: RIGHT 5/5, LEFT 4/5 strength. Cranial nerves II-XII intact. Normal speech. Gait not appreciated. PSYCHIATRIC: Not very cooperative and argumentative. Good eye contact. Appropriate mood and affect. SKIN: Warm, dry, normal turgor, no rashes or lesions noted, normal capillary refill. Laboratory Results - last 24 hr 05/14/19 05/15/19 16:01 06:37 POC Glucometer 163 141 Active Medications Albuterol/Ipratropium (Duoneb -) 1 amp NEB RQID [facility] Last Admin: 05/19/19 11:20 Dose: Not Given Azithromycin (Zithromax -) 500 mg PO DAILY [facility] Stop: 05/20/19 10:01 Last Admin: 05/18/19 10:43 Dose: 500 mg Bacitracin (Bacitracin -) 1 applic TP BID [facility] Last Admin: 05/18/19 22:43 Dose: 1 applic Doxazosin Mesylate (Cardura -) 2 mg PO HS [facility] Last Admin: 05/18/19 22:43 Dose: 2 mg Fluticasone Propionate (Flonase -) 1 spray NS DAILY [facility] Last Admin: 05/18/19 10:44 Dose: 1 spray Gabapentin (Neurontin -) 300 mg PO TID [facility] Last Admin: 05/19/19 06:40 Dose: 300 mg Heparin Sodium (Porcine) (Heparin -) 5,000 unit SQ TID [facility] Last Admin: 05/19/19 06:40 Dose: 5,000 unit Sodium Chloride (Normal Saline -) 250 mls @ 3,000 mls/hr IV PRN PRN PRN Reason: Hypotension during Dialysis Stop: 05/19/19 16:23 Insulin Aspart (Novolog Vial Sliding Scale -) 1 vial SQ TIDAC [facility]; Protocol Last Admin: 05/19/19 06:40 Dose: Not Given Insulin Detemir (Levemir Vial) 3 units SQ Q12H [facility] Last Admin: 05/18/19 20:48 Dose: 3 units Lidocaine (Lidoderm Patch -) 1 patch TP DAILY [facility] Last Admin: 05/18/19 10:39 Dose: 1 patch Losartan Potassium (Cozaar -) 25 mg PO DAILY [facility] Last Admin: 05/18/19 10:43 Dose: 25 mg Methadone HCl (Dolophine -) 2.5 mg PO Q8H [facility] Last Admin: 05/19/19 06:40 Dose: 2.5 mg Miscellaneous (Lidoderm Patch Removal) 1 each MC DAILY@2200 [facility] Last Admin: 05/18/19 22:43 Dose: 1 each Multivit/Ca Carb/B Cmplx/FA/Prenat (Nephro-Guilherme -) 1 tablet PO DAILY [facility] Last Admin: 05/18/19 10:43 Dose: 1 tablet Nifedipine (Procardia Xl -) 90 mg PO DAILY [facility] Last Admin: 05/18/19 10:45 Dose: 90 mg Tiotropium [place] (Spiriva Respimat) 2 puff IH DAILY [facility] Last Admin: 05/18/19 10:45 Dose: Not Given Torsemide (Demadex -) 80 mg PO DAILY [facility] Last Admin: 05/18/19 10:43 Dose: 80 mg Trazodone HCl 400 mg/ (Trazodone HCl 50 mg) 450 mg PO HS [facility] Last Admin: 05/18/19 22:41 Dose: 450 mg Vitamin A/Vitamin D (Vitamin A & D Top Oint -) 1 applic TP Q6HPO [facility] Last Admin: 05/19/19 06:40 Dose: 1 applic ASSESSMENT/PLAN: 63 y/o male PMH HTN, insulin treated DM, ESRD (TTS), PVD s/p BL BKA (2019) and MRSA bacteremia brought in for anemia. Overnight chest CT suspicous of blood clot but not likely given final read. Now experiencing sudden onset SOB consistent with crackles on PE and HD with removal of 3kg. No fevers recorded. CXR this AM still with congestive changes. # SOB - Pulm already consulted: CT chest findings and clinical exam more consistent with volume overload, mediastinal lymphadenopathy and sabino hepatis can be seen with decompensated heart failure or volume overload/TACO - HD per renal with ultrafiltration, likely needs a lower dry weight - HD with continued aggressive UF; 3.5L removal - F/u am CXR # Lung/mediastinal mass - Lymphoma vs lung cancer - Pulmonary consult noted as above; more likely atelectasis - F/u heme/onc recommendation # Normocytic anemia - Repeat afternoon CBC demonstrates stable h/h - Most likely ACD however poss hemolysis given low Hb despite transfusion - LDH normal and haptoglobin pending - Heme/onc consulted: Severe ACD and iron studies s/o chronic disease; stool occult is negative # ESRD - Renal consulted: Dialysis tomorrow. - S/p PRBC transfusion, Hgb improved to > 8 today. Will check CBC today with HD. - 1.2L fluid restriction # Chronic pain - Methadone 2.5 mg PO TID - Lidocaine patch # DM - Hold home regimen - ISS ACHS with gentle modification/please see sliding scale instructions - Insulin Levemir lowered to 3 units with supper - Gabapentin 300 mg PO TID # HTN - Cont. curent home regimen: Nifedipine ER 90 mg PO QD (changed from 60 mg), doxazosin 2 mg PO HS, ADDED Losartan 25 mg PO QD # Possible PE, ruled out - Overnight read of, "subsegmental peripheral right lung pulmonary embolism, no saddle embolus, interstitial edema, some infiltrates likely infection and a possibility for malignancy in the lungs, because the left heart border had suspicions for small cell carcinoma with mediastinal lymphadenopathy and sabino hepatis. There is concern for Lymphoma with recommendation for CT A/P (non- emergent)." - Pt hemodynamically stable - D dimer 1,438 - Pt elected for PO anticoag with Zabrina after lengthy discussion (please see attending note) - Pulm consulted: Do not suspect PE at this time. CT chest findings and clinical exam more consistent with volume overload, mediastinal lymphadenopathy and sabino hepatis can be seen with decompensated heart failure or volume overload/TACO. Do not suspect lung mass, more likely atelectasis. Can d/c anticoagulation - US of LE to r/o DVT. - F/u CT in 6-8 weeks # E coli in urine - < 10k cfu - Pt asymptomatic # F/E/N - PO; 1.2L fluid restriction - Cont. to monitor - Low sodium, diabetic diet # DVT prophylaxis - Heparin SQ # Disposition - Med/surg Rivas Coon MD Visit type - Emergency Visit Emergency Visit: No - New Patient This patient is new to me today: No - Critical Care Critical Care patient: No ATTENDING PHYSICIAN STATEMENT I saw and evaluated the patient. I reviewed the resident's note and discussed the case with the resident. I agree with the resident's findings and plan as documented. SUBJECTIVE: OBJECTIVE: ASSESSMENT AND PLAN:
--- NOTE | 2019-05-15 14:41 | PN ---
Progress Note, Physician History of Present Illness: stable no new issues - Current Medication List Current Medications: Active Medications Albuterol/Ipratropium (Duoneb -) 1 amp NEB RQID [facility] Last Admin: 05/15/19 12:00 Dose: Not Given Bacitracin (Bacitracin -) 1 applic TP BID [facility] Last Admin: 05/14/19 22:56 Dose: 1 applic Doxazosin Mesylate (Cardura -) 2 mg PO HS [facility] Last Admin: 05/14/19 22:57 Dose: 2 mg Epoetin Joe (Epogen -) 20,000 unit IVPUSH ONCE ONE Stop: 05/16/19 06:01 Fluticasone Propionate (Flonase -) 1 spray NS DAILY [facility] Last Admin: 05/15/19 11:14 Dose: Not Given Gabapentin (Neurontin -) 300 mg PO TID [facility] Last Admin: 05/15/19 06:40 Dose: 300 mg Heparin Sodium (Porcine) (Heparin -) 5,000 unit SQ TID [facility] Last Admin: 05/15/19 06:40 Dose: 5,000 unit Sodium Chloride (Normal Saline -) 250 mls @ 3,000 mls/hr IV PRN PRN PRN Reason: Hypotension during Dialysis Stop: 05/16/19 13:12 Iron Sucrose 100 mg/ Sodium (Chloride) 100 mls @ 200 mls/hr IVPB ONCE ONE Stop: 05/16/19 07:29 Insulin Aspart (Novolog Vial Sliding Scale -) 1 vial SQ TIDAC [facility]; Protocol Last Admin: 05/15/19 06:40 Dose: Not Given Insulin Detemir (Levemir Vial) 3 units SQ [facility] Last Admin: 05/14/19 22:57 Dose: 3 units Lidocaine (Lidoderm Patch -) 1 patch TP DAILY [facility] Last Admin: 05/15/19 11:13 Dose: 1 patch Losartan Potassium (Cozaar -) 25 mg PO DAILY [facility] Last Admin: 05/15/19 11:13 Dose: 25 mg Methadone HCl (Dolophine -) 2.5 mg PO TID [facility] Last Admin: 05/15/19 06:40 Dose: 2.5 mg Miscellaneous (Lidoderm Patch Removal) 1 each MC DAILY@2200 [facility] Last Admin: 05/14/19 22:58 Dose: 1 each Multivit/Ca Carb/B Cmplx/FA/Prenat (Nephro-Guilherme -) 1 tablet PO DAILY [facility] Last Admin: 05/15/19 11:13 Dose: 1 tablet Nifedipine (Procardia Xl -) 90 mg PO DAILY [facility] Last Admin: 05/15/19 11:14 Dose: 90 mg Tiotropium [place] (Spiriva Respimat) 2 puff IH DAILY [facility] Last Admin: 05/14/19 15:32 Dose: Not Given Torsemide (Demadex -) 80 mg PO DAILY [facility] Trazodone HCl 400 mg/ (Trazodone HCl 50 mg) 450 mg PO HS [facility] Last Admin: 05/14/19 22:57 Dose: 450 mg Vitamin A/Vitamin D (Vitamin A & D Top Oint -) 1 applic TP Q6HPO [facility] Last Admin: 05/15/19 06:40 Dose: 1 applic - Objective Vital Signs: Vital Signs Temperature 98 F 05/15/19 05:10 Pulse Rate 91 H 05/15/19 13:50 Respiratory Rate 18 05/15/19 13:50 Blood Pressure 182/99 H 05/15/19 13:50 O2 Sat by Pulse Oximetry (%) 96 05/14/19 09:00 Constitutional: Yes: No Distress, Calm Cardiovascular: Yes: S1, S2 Respiratory: Yes: Regular, CTA Bilaterally Gastrointestinal: Yes: Normal Bowel Sounds, Soft Musculoskeletal: Yes: WNL Extremities: Yes: Other Neurological: Yes: Alert, Oriented Psychiatric: Yes: Alert, Oriented Labs: CBC, BMP 05/14/19 09:45 05/14/19 09:45 INR, PTT INR 1.38 (0.83-1.09) H 05/11/19 13:30 Assessment/Plan Volume Overload Acute on Chronic Diastolic Heart Failure Anemia s/p 4 unit PRBC transfusion r/o Transfusion Associated Circulatory Overload ESRD on HD HTN DM Bilateral BKA h/o Osteomyelitis bleeding per rectum plan continue current mgmt close watch dialysis rest as per the team
[2019-05-15] MEDS: BACITRACIN 15 GM TUBE TOPICAL OINTMENT TP SCH ×2 (16:41→21:35)
[2019-05-15] MEDS: TIOTROPIUM BROMIDE 2.5 MCG (SPIRIVA) RESPIMAT INHALER IH SCH (16:42)
--- NOTE | 2019-05-15 19:18 | PN ---
Teaching Attending Note Name of Resident: Rivas Coon ATTENDING PHYSICIAN STATEMENT I saw and evaluated the patient. I reviewed the resident's note and discussed the case with the resident. I agree with the resident's findings and plan as documented. SUBJECTIVE: Patient is slightly better Vital Signs Temperature 98 F 05/15/19 05:10 Pulse Rate 83 05/15/19 15:30 Respiratory Rate 18 05/15/19 15:30 Blood Pressure 167/90 05/15/19 15:30 O2 Sat by Pulse Oximetry (%) 96 05/15/19 09:00 GENERAL: The patient is awake, alert, and fully oriented, labored breathing. HEAD: Normal with no signs of trauma. EYES: PERRL, extraocular movements intact, sclera anicteric, conjunctiva clear. ENT: Ears normal, oropharynx clear without exudates, moist mucous membranes. NECK: Trachea midline, full range of motion, supple. LUNGS: decreased Breath sounds bl, positive for wheezing continues but improving , positive for crackles, no accessory muscle use. HEART: Regular rate and rhythm, S1, S2 without murmur, rub or gallop. ABDOMEN: Soft, nontender, nondistended, normoactive bowel sounds, no guarding, no rebound, no hepatosplenomegaly, no masses. EXTREMITIES: 2+ pulses, warm, well-perfused, bl amputation left below knee, right above knee NEUROLOGICAL: Cranial nerves II through XII grossly intact. Normal speech, gait not observed. PSYCH: Normal mood, normal affect. SKIN: Warm, dry, normal turgor, no rashes or lesions noted . CBCD WBC 9.1 K/mm3 (4.0-10.0) 05/14/19 09:45 RBC 2.63 M/mm3 (4.00-5.60) L 05/14/19 09:45 Hgb 7.6 GM/dL (11.7-16.9) L 05/14/19 09:45 Hct 23.4 % (35.4-49) L 05/14/19 09:45 MCV 88.8 fl (80-96) 05/14/19 09:45 MCHC 32.6 g/dl (32.0-35.9) 05/14/19 09:45 RDW 17.1 % (11.9-15.9) H 05/14/19 09:45 Plt Count 317 K/MM3 (134-434) 05/14/19 09:45 MPV 7.5 fl (7.5-11.1) 05/14/19 09:45 CMP Sodium 138 mmol/L (136-145) 05/14/19 09:45 Potassium 5.4 mmol/L (3.5-5.1) H 05/14/19 09:45 Chloride 104 mmol/L (98-107) 05/14/19 09:45 Carbon Dioxide 30 mmol/L (21-32) 05/14/19 09:45 Anion Gap 4 MMOL/L (8-16) L 05/14/19 09:45 BUN 49.8 mg/dL (7-18) H 05/14/19 09:45 Creatinine 4.2 mg/dL (0.55-1.3) H 05/14/19 09:45 Random Glucose 145 mg/dL (74-106) H 05/14/19 09:45 Calcium 7.8 mg/dL (8.5-10.1) L 05/14/19 09:45 Total Bilirubin 0.6 mg/dL (0.2-1) 05/14/19 09:45 AST 9 U/L (15-37) L 05/14/19 09:45 ALT 21 U/L (13-61) 05/14/19 09:45 Alkaline Phosphatase 175 U/L (45-117) H 05/14/19 09:45 Total Protein 6.4 g/dl (6.4-8.2) 05/14/19 09:45 Albumin 2.4 g/dl (3.4-5.0) L 05/14/19 09:45 CARDIAC ENZYMES Creatine Kinase 84 U/L (26-308) 05/09/19 08:14 Troponin I < 0.02 ng/ml (0.00-0.05) 05/09/19 08:14 Current Medications Generic Name Dose Route Start Last Admin Trade Name Freq PRN Reason Stop Dose Admin Albuterol/Ipratropium 1 amp 05/15/19 12:00 05/15/19 15:54 Duoneb - NEB Not Given RQID [facility] Bacitracin 1 applic 05/12/19 11:15 05/15/19 16:41 Bacitracin - TP Not Given BID [facility] Doxazosin Mesylate 2 mg 05/09/19 22:00 05/14/19 22:57 Cardura - PO 2 mg HS [facility] Administration Epoetin Joe 20,000 unit 05/16/19 06:00 Epogen - IVPUSH 05/16/19 06:01 ONCE ONE Fluticasone Propionate 1 spray 05/09/19 10:00 05/15/19 11:14 Flonase - NS Not Given DAILY [facility] Gabapentin 300 mg 05/09/19 14:00 05/15/19 16:42 Neurontin - PO Not Given TID [facility] Heparin Sodium (Porcine) 5,000 unit 05/12/19 22:00 05/15/19 16:42 Heparin - SQ Not Given TID [facility] Sodium Chloride 250 mls @ 3,000 mls/hr 05/15/19 13:12 Normal Saline - IV 05/16/19 13:12 PRN PRN Hypotension during Dialysis Iron Sucrose 100 mg/ Sodium 100 mls @ 200 mls/hr 05/16/19 07:00 Chloride IVPB 05/16/19 07:29 ONCE ONE Insulin Aspart 1 vial 05/11/19 14:51 05/15/19 16:54 Novolog Vial Sliding Scale - SQ Not Given TIDAC [facility] Protocol Insulin Detemir 3 units 05/11/19 09:57 05/14/19 22:57 Levemir Vial SQ 3 units HS [facility] Administration Lidocaine 1 patch 05/09/19 10:00 05/15/19 11:13 Lidoderm Patch - TP 1 patch DAILY [facility] Administration Losartan Potassium 25 mg 05/13/19 10:00 05/15/19 11:13 Cozaar - PO 25 mg DAILY [facility] Administration Methadone HCl 2.5 mg 05/09/19 14:00 05/15/19 16:53 Dolophine - PO 2.5 mg TID [facility] Administration Miscellaneous 1 each 05/09/19 22:00 05/14/19 22:58 Lidoderm Patch Removal MC 1 each DAILY@2200 [facility] Administration Multivit/Ca Carb/B Cmplx/FA/Prenat 1 tablet 05/09/19 10:00 05/15/19 11:13 Nephro-Guilherme - PO 1 tablet DAILY [facility] Administration Nifedipine 90 mg 05/13/19 10:00 05/15/19 11:14 Procardia Xl - PO 90 mg DAILY [facility] Administration Tiotropium [place] 2 puff 05/10/19 10:00 05/15/19 16:42 Spiriva Respimat IH Not Given DAILY [facility] Torsemide 80 mg 05/16/19 10:00 Demadex - PO DAILY [facility] Trazodone HCl 400 mg/ 450 mg 05/09/19 22:15 05/14/19 22:57 Trazodone HCl 50 mg PO 450 mg HS [facility] Administration Vitamin A/Vitamin D 1 applic 05/14/19 18:00 05/15/19 12:00 Vitamin A & D Top Oint - TP 1 applic Q6HPO [facility] Administration 2 Home Medications Medication Instructions Recorded Fluticasone Prop 0.05% Nasal 1 - 2 spray NS DAILY #1 spray.pump 08/23/17 [Flonase -] Lidocaine 5% Patch [Lidoderm -] 1 patch TP DAILY patch 10/06/17 Lidocaine Patch Removal [Lidoderm 1 each MC DAILY@2200 each 10/06/17 Patch Removal] traZODone HCL [Desyrel -] 450 mg PO HS 04/07/19 Methadone [Dolophine -] 2.5 mg PO TID 04/16/19 Doxazosin Mesylate [Cardura -] 2 mg PO HS #30 tablet 04/20/19 Gabapentin [Neurontin -] 300 mg PO TID #90 capsule 04/20/19 Insulin Sliding Scale [Novolog 1 vial SQ TIDAC #1 vial 04/20/19 Vial Sliding Scale -] Nifedipine ER [Procardia XL -] 60 mg PO DAILY #30 tab.er.24 04/20/19 Vitamin B Comp W-C [Nephro-Guilherme -] 1 tablet PO DAILY #30 tablet 04/20/19 Insulin (Levemir) [Levemir Vial] 12 unit SQ HS 05/10/19 Doxazosin Mesylate 4 mg PO DAILY 05/11/19 Gabapentin 100 mg PO BID 05/11/19 Nifedipine ER [Procardia Xl -] 90 mg PO DAILY 05/11/19 Microbiology 05/09/19 10:14 Urine - Urine Clean Catch Urine Culture - Final Gram Negative [facility] CT for mediastinal lymphadenopathy Assessment and plan: patient is a 63 y/o man with h/o ESRD on HD (TTS), IDDM, HTN, PVD s/p L BKA, Diabetic neuropathy, MRSA bacteremia , 10/14, R IJ thrombus, 10/14 , R foot OM and necrotizing fasciitis , s/p R BKA 04/16, MSSA bacteremia , normocytic anemia ,who presented due to anemia. # Acute pulmonary edema with SOB; continue HD as needed, getting HD as needed prn. persistent congestive changes. # Acute on chronic normocytic anemia: due ESRD # ESRD: HD per renal, nephro on the case. continue dialysis prn as per nephro. # DM: with hypoglycemia this am. continue with SS with coverage , SSI coverage and no HS coverage , sensitive to insulin # Hx HTN: cont nifedipine 90 mg (increased) , and cardura, losartan and monitor K. d/w renal #Chronic pain: cont methadone and lidocaine patch DVT Px: heparin sq
[2019-05-15] MEDS ORDERED: traZODone HCL 100 MG TABLET (FP) ONE (21:10)
[2019-05-15] MEDS ORDERED: traZODone HCL 50 MG TABLET (FP) ONE (21:10)
[2019-05-15] MEDS ORDERED: PT OWN MED DRAWER 7, Y5N ONE (21:12)
[2019-05-15] MEDS: INSULIN (LEVEMIR) 100 UNITS/ML UNITS SQ SCH (21:31)
[2019-05-15] MEDS: TRAZODONE HCL PO SCH (21:32)
[2019-05-15] MEDS: LIDOCAINE PATCH REMOVAL MC SCH (21:33)
[2019-05-15] MEDS: DOXAZOSIN MESYLATE 2 MG TABLET PO SCH (21:35)
[2019-05-16] MEDS: VITAMINS A AND D TOPICAL OINTMENT 60 GM TUBE TP SCH ×3 (00:29→12:56)
[2019-05-16] MEDS ORDERED: INSULIN (NOVOLOG) ASPART 100 UNITS/ML 10ML VIAL ONE ×2 (06:26→11:42)
[2019-05-16] MEDS: INSULIN SLIDING SCALE (NOVOLOG) 1 VIAL SQ SCH ×2 (06:28→11:38)
[2019-05-16] MEDS: HEPARIN NA (PORCINE) 5,000 UNITS/ML 1ML VIAL SQ SCH ×3 (06:28→21:47)
[2019-05-16] MEDS: GABAPENTIN 300 MG CAPSULE PO SCH ×3 (06:28→21:47)
[2019-05-16] MEDS: METHADONE HCL 5 MG TABLET PO SCH (06:29)
[2019-05-16] MEDS: ALBUTEROL SO4 2.5/IPRATROPIUM 0.5 INH SOL 3 ML VIAL.NEB. NEB SCH ×4 (08:45→20:50)
[2019-05-16] MEDS ORDERED: PT OWN MED DRAWER 7, Y5N ONE ×2 (10:33→21:41)
[2019-05-16] MEDS: LIDOCAINE 5% TOPICAL PATCH TP SCH (10:55)
[2019-05-16] MEDS: LOSARTAN POTASSIUM 25 MG TABLET PO SCH (10:57)
[2019-05-16] MEDS: TORSEMIDE 20 MG TABLET (FP) PO SCH (10:57)
[2019-05-16] MEDS: VITAMIN B COMP W-C 1 EA TABLET PO SCH (10:57)
[2019-05-16] MEDS: NIFEdipine E.R. 90 MG TABLET PO SCH (10:57)
[2019-05-16] MEDS: BACITRACIN 15 GM TUBE TOPICAL OINTMENT TP SCH ×2 (10:58→21:47)
[2019-05-16] MEDS: FLUTICASONE PROP 0.05% 16 GM NASAL SPRAY NS SCH (11:01)
[2019-05-16] MEDS: TIOTROPIUM BROMIDE 2.5 MCG (SPIRIVA) RESPIMAT INHALER IH SCH (11:02)
--- NOTE | 2019-05-16 12:54 | PN ---
Progress Note (short form) - Note Progress Note: PULMONARY States breathing continues to improve. +cough productive of brown sputum. No fevers. Vital Signs Period Temp Pulse Resp BP Sys/Gutierrez Pulse Ox Last 24 Hr 97.4 F-97.5 F 79-96 18-20 150-182/69-99 Gen: less tachypneic at rest Heart: RRR Lung: scattered rhonchi Abd: soft, nontender Ext: bilateral BKA CBC, BMP 05/14/19 09:45 05/14/19 09:45 Active Medications Albuterol/Ipratropium (Duoneb -) 1 amp NEB RQID [facility] Last Admin: 05/16/19 12:48 Dose: 1 amp Bacitracin (Bacitracin -) 1 applic TP BID [facility] Last Admin: 05/16/19 10:58 Dose: 1 applic Doxazosin Mesylate (Cardura -) 2 mg PO HS [facility] Last Admin: 05/15/19 21:35 Dose: 2 mg Epoetin Joe (Epogen -) 20,000 unit IVPUSH ONCE ONE Stop: 05/16/19 06:01 Fluticasone Propionate (Flonase -) 1 spray NS DAILY [facility] Last Admin: 05/16/19 11:01 Dose: Not Given Gabapentin (Neurontin -) 300 mg PO TID [facility] Last Admin: 05/16/19 06:28 Dose: 300 mg Heparin Sodium (Porcine) (Heparin -) 5,000 unit SQ TID [facility] Last Admin: 05/16/19 06:28 Dose: 5,000 unit Sodium Chloride (Normal Saline -) 250 mls @ 3,000 mls/hr IV PRN PRN PRN Reason: Hypotension during Dialysis Stop: 05/16/19 13:12 Iron Sucrose 100 mg/ Sodium (Chloride) 100 mls @ 200 mls/hr IVPB ONCE ONE Stop: 05/16/19 07:29 Insulin Aspart (Novolog Vial Sliding Scale -) 1 vial SQ TIDAC [facility]; Protocol Last Admin: 05/16/19 11:38 Dose: 4 units Insulin Detemir (Levemir Vial) 3 units SQ HS [facility] Last Admin: 05/15/19 21:31 Dose: 3 units Lidocaine (Lidoderm Patch -) 1 patch TP DAILY [facility] Last Admin: 05/16/19 10:55 Dose: 1 patch Losartan Potassium (Cozaar -) 25 mg PO DAILY [facility] Last Admin: 05/16/19 10:57 Dose: 25 mg Methadone HCl (Dolophine -) 2.5 mg PO TID [facility] Last Admin: 05/16/19 06:29 Dose: 2.5 mg Miscellaneous (Lidoderm Patch Removal) 1 each MC DAILY@2200 [facility] Last Admin: 05/15/19 21:33 Dose: 1 each Multivit/Ca Carb/B Cmplx/FA/Prenat (Nephro-Guilherme -) 1 tablet PO DAILY [facility] Last Admin: 05/16/19 10:57 Dose: 1 tablet Nifedipine (Procardia Xl -) 90 mg PO DAILY [facility] Last Admin: 05/16/19 10:57 Dose: 90 mg Tiotropium [place] (Spiriva Respimat) 2 puff IH DAILY [facility] Last Admin: 05/16/19 11:02 Dose: Not Given Torsemide (Demadex -) 80 mg PO DAILY [facility] Last Admin: 05/16/19 10:57 Dose: 80 mg Trazodone HCl 400 mg/ (Trazodone HCl 50 mg) 450 mg PO HS [facility] Last Admin: 05/15/19 21:32 Dose: 450 mg Vitamin A/Vitamin D (Vitamin A & D Top Oint -) 1 applic TP Q6HPO [facility] Last Admin: 05/16/19 06:29 Dose: 1 applic A/P Volume Overload Acute on Chronic Diastolic Heart Failure Anemia s/p 4 unit PRBC transfusion r/o Transfusion Associated Circulatory Overload Acute Bronchitis ESRD on HD HTN DM Bilateral BKA h/o Osteomyelitis - will start course of azithromycin - HD per renal with ultrafiltration - O2 to keep Spo2 >90% - inhaled bronchodilators as needed - will need f/u CT chest in 6-8 weeks when euvolemic - DVT prophylaxis
--- NOTE | 2019-05-16 14:12 | PN ---
Progress Note, Physician History of Present Illness: Events noted. Pt has had c/o SOB now is producing more thick sputum. Azithromycin was started. He is currently stable, remains afebrile, without acute distress. - Current Medication List Current Medications: Active Medications Albuterol/Ipratropium (Duoneb -) 1 amp NEB RQID [facility] Last Admin: 05/16/19 12:48 Dose: 1 amp Azithromycin (Zithromax -) 500 mg PO DAILY [facility] Stop: 05/20/19 10:01 Bacitracin (Bacitracin -) 1 applic TP BID [facility] Last Admin: 05/16/19 10:58 Dose: 1 applic Doxazosin Mesylate (Cardura -) 2 mg PO HS [facility] Last Admin: 05/15/19 21:35 Dose: 2 mg Epoetin Joe (Epogen -) 20,000 unit IVPUSH ONCE ONE Stop: 05/16/19 06:01 Fluticasone Propionate (Flonase -) 1 spray NS DAILY [facility] Last Admin: 05/16/19 11:01 Dose: Not Given Gabapentin (Neurontin -) 300 mg PO TID [facility] Last Admin: 05/16/19 06:28 Dose: 300 mg Heparin Sodium (Porcine) (Heparin -) 5,000 unit SQ TID [facility] Last Admin: 05/16/19 06:28 Dose: 5,000 unit Sodium Chloride (Normal Saline -) 250 mls @ 3,000 mls/hr IV PRN PRN PRN Reason: Hypotension during Dialysis Stop: 05/16/19 13:12 Iron Sucrose 100 mg/ Sodium (Chloride) 100 mls @ 200 mls/hr IVPB ONCE ONE Stop: 05/16/19 07:29 Insulin Aspart (Novolog Vial Sliding Scale -) 1 vial SQ TIDAC [facility]; Protocol Last Admin: 05/16/19 11:38 Dose: 4 units Insulin Detemir (Levemir Vial) 3 units SQ HS [facility] Last Admin: 05/15/19 21:31 Dose: 3 units Lidocaine (Lidoderm Patch -) 1 patch TP DAILY [facility] Last Admin: 05/16/19 10:55 Dose: 1 patch Losartan Potassium (Cozaar -) 25 mg PO DAILY [facility] Last Admin: 05/16/19 10:57 Dose: 25 mg Miscellaneous (Lidoderm Patch Removal) 1 each MC DAILY@2200 [facility] Last Admin: 05/15/19 21:33 Dose: 1 each Multivit/Ca Carb/B Cmplx/FA/Prenat (Nephro-Guilherme -) 1 tablet PO DAILY [facility] Last Admin: 05/16/19 10:57 Dose: 1 tablet Nifedipine (Procardia Xl -) 90 mg PO DAILY [facility] Last Admin: 05/16/19 10:57 Dose: 90 mg Tiotropium [place] (Spiriva Respimat) 2 puff IH DAILY [facility] Last Admin: 05/16/19 11:02 Dose: Not Given Torsemide (Demadex -) 80 mg PO DAILY [facility] Last Admin: 05/16/19 10:57 Dose: 80 mg Trazodone HCl 400 mg/ (Trazodone HCl 50 mg) 450 mg PO HS [facility] Last Admin: 05/15/19 21:32 Dose: 450 mg Vitamin A/Vitamin D (Vitamin A & D Top Oint -) 1 applic TP Q6HPO [facility] Last Admin: 05/16/19 06:29 Dose: 1 applic - Objective Vital Signs: Vital Signs Temperature 97.4 F L 05/16/19 10:00 Pulse Rate 87 05/16/19 10:00 Respiratory Rate 05/16/19 10:00 Blood Pressure 150/87 05/16/19 10:00 O2 Sat by Pulse Oximetry (%) 96 05/15/19 09:00 Constitutional: Yes: No Distress, Calm Cardiovascular: Yes: Regular Rate and Rhythm Respiratory: Yes: Rhonchi Gastrointestinal: Yes: Normal Bowel Sounds, Soft Extremities: Yes: Amputation Integumentary: Yes: WNL Neurological: Yes: Alert Labs: CBC, BMP 05/14/19 09:45 05/14/19 09:45 INR, PTT INR 1.38 (0.83-1.09) H 05/11/19 13:30 Microbiology 05/09/19 10:14 Urine - Urine Clean Catch Urine Culture - Final Gram Negative Jordan - ....Imaging Chest X-ray: Report Reviewed Problem List - Problems (1) ESRD (end stage renal disease) Code(s): N18.6 - END STAGE RENAL DISEASE (2) Acute on chronic diastolic heart failure Code(s): I50.33 - ACUTE ON CHRONIC DIASTOLIC (CONGESTIVE) HEART FAILURE (3) Below-knee amputation Code(s): S88.119A - COMPLETE TRAUM AMP AT LEV BETW KN & ANKL, UNSP LOW LEG, INIT (4) COPD with emphysema Code(s): J43.9 - EMPHYSEMA, UNSPECIFIED (5) Diabetes mellitus, insulin dependent (IDDM), controlled Code(s): E11.9 - TYPE 2 DIABETES MELLITUS WITHOUT COMPLICATIONS; Z79.4 - NURSING HOME (CURRENT) USE OF INSULIN (6) Diabetic neuropathy Code(s): E11.40 - TYPE 2 DIABETES MELLITUS WITH DIABETIC NEUROPATHY, UNSP Qualifiers: Diabetes mellitus type: type 2 Diabetes mellitus complication detail: diabetic polyneuropathy Qualified Code(s): E11.42 - Type 2 diabetes mellitus with diabetic polyneuropathy Assessment/Plan Volume Overload Acute on Chronic Diastolic Heart Failure Anemia s/p 4 unit PRBC transfusion r/o Transfusion Associated Circulatory Overload ESRD on HD HTN DM Bilateral BKA h/o Osteomyelitis bleeding per rectum -- +productive cough, Azithromycin started -- CXR with progression of congestion -- continue supportive care monitor vitals, currently stable
--- NOTE | 2019-05-16 14:41 | PN ---
Progress Note (short form) - Note Progress Note: for hemodialysis today Current Medications Albuterol/Ipratropium (Duoneb -) 1 amp NEB RQID [facility] Last Admin: 05/16/19 12:48 Dose: 1 amp Azithromycin (Zithromax -) 500 mg PO DAILY [facility] Stop: 05/20/19 10:01 Bacitracin (Bacitracin -) 1 applic TP BID [facility] Last Admin: 05/16/19 10:58 Dose: 1 applic Doxazosin Mesylate (Cardura -) 2 mg PO HS [facility] Last Admin: 05/15/19 21:35 Dose: 2 mg Epoetin Joe (Epogen -) 20,000 unit IVPUSH ONCE ONE Stop: 05/16/19 06:01 Fluticasone Propionate (Flonase -) 1 spray NS DAILY [facility] Last Admin: 05/16/19 11:01 Dose: Not Given Gabapentin (Neurontin -) 300 mg PO TID [facility] Last Admin: 05/16/19 06:28 Dose: 300 mg Heparin Sodium (Porcine) (Heparin -) 5,000 unit SQ TID [facility] Last Admin: 05/16/19 06:28 Dose: 5,000 unit Sodium Chloride (Normal Saline -) 250 mls @ 3,000 mls/hr IV PRN PRN PRN Reason: Hypotension during Dialysis Stop: 05/16/19 13:12 Iron Sucrose 100 mg/ Sodium (Chloride) 100 mls @ 200 mls/hr IVPB ONCE ONE Stop: 05/16/19 07:29 Insulin Aspart (Novolog Vial Sliding Scale -) 1 vial SQ TIDAC [facility]; Protocol Last Admin: 05/16/19 11:38 Dose: 4 units Insulin Detemir (Levemir Vial) 3 units SQ [facility] Last Admin: 05/15/19 21:31 Dose: 3 units Lidocaine (Lidoderm Patch -) 1 patch TP DAILY [facility] Last Admin: 05/16/19 10:55 Dose: 1 patch Losartan Potassium (Cozaar -) 25 mg PO DAILY [facility] Last Admin: 05/16/19 10:57 Dose: 25 mg Miscellaneous (Lidoderm Patch Removal) 1 each MC DAILY@2200 [facility] Last Admin: 05/15/19 21:33 Dose: 1 each Multivit/Ca Carb/B Cmplx/FA/Prenat (Nephro-Guilherme -) 1 tablet PO DAILY [facility] Last Admin: 05/16/19 10:57 Dose: 1 tablet Nifedipine (Procardia Xl -) 90 mg PO DAILY [facility] Last Admin: 05/16/19 10:57 Dose: 90 mg Tiotropium [place] (Spiriva Respimat) 2 puff IH DAILY [facility] Last Admin: 05/16/19 11:02 Dose: Not Given Torsemide (Demadex -) 80 mg PO DAILY [facility] Last Admin: 05/16/19 10:57 Dose: 80 mg Trazodone HCl 400 mg/ (Trazodone HCl 50 mg) 450 mg PO HS [facility] Last Admin: 05/15/19 21:32 Dose: 450 mg Vitamin A/Vitamin D (Vitamin A & D Top Oint -) 1 applic TP Q6HPO [facility] Last Admin: 05/16/19 06:29 Dose: 1 applic Last Vital Signs Temp Pulse Resp BP Pulse Ox 97.4 F L 87 20 150/87 96 05/16/19 10:00 05/16/19 10:00 05/16/19 10:00 05/16/19 10:00 05/15/19 09:00 CBC, BMP 05/14/19 09:45 05/14/19 09:45
[2019-05-16] MEDS: AZITHROMYCIN 250 MG TABLET PO SCH (14:56)
[2019-05-16 16:18] LABS: HEMATOCRIT 24.1 % (35.4-49); HEMOGLOBIN 7.7 GM/dL (11.7-16.9); MCH 28.3 pg (25.7-33.7); MCHC 31.8 g/dl (32.0-35.9); MEAN CELL VOLUME 89.1 fl (80-96); MEAN PLT VOLUME 7.3 fl (7.5-11.1); PLATELET COUNT 303 K/MM3 (134-434); RDW 17.4 % (11.9-15.9); WHITE BLOOD COUNT 10.6 K/mm3 (4.0-10.0)
[2019-05-16 16:49] LABS: BLOOD UREA NITROGEN 47.9 mg/dL (7-18); CALCIUM 8.1 mg/dL (8.5-10.1); CREATININE 4.4 mg/dL (0.55-1.3); PHOSPHOROUS 4.1 mg/dL (2.5-4.9); POTASSIUM 4.5 mmol/L (3.5-5.1)
[2019-05-16] MEDS ORDERED: SODIUM CHLORIDE 250 ML IV PRN (16:55)
[2019-05-16] MEDS ORDERED: EPOETIN ALFA 20,000 UNIT/1 ML VIAL IVPUSH ONE (17:00)
[2019-05-16] MEDS ORDERED: IRON SUCROSE INJECTION 100 MG in SODIUM CHLORIDE 95 ML IVPB ONE (17:30)
[2019-05-16] MEDS ORDERED: traZODone HCL 50 MG TABLET (FP) ONE (21:39)
[2019-05-16] MEDS ORDERED: traZODone HCL 100 MG TABLET (FP) ONE (21:40)
[2019-05-16] MEDS: DOXAZOSIN MESYLATE 2 MG TABLET PO SCH (21:47)
[2019-05-16] MEDS: TRAZODONE HCL PO SCH (21:47)
[2019-05-16] MEDS: LIDOCAINE PATCH REMOVAL MC SCH (21:48)
[2019-05-16] MEDS: INSULIN (LEVEMIR) 100 UNITS/ML UNITS SQ SCH (21:48)
--- NOTE | 2019-05-16 22:16 | PN ---
Progress Note (short form) - Note Progress Note: c/o having thick brown lora sputum, feels better Vital Signs Temperature 97.7 F 05/16/19 15:12 Pulse Rate 80 05/16/19 19:38 Respiratory Rate 18 05/16/19 19:38 Blood Pressure 177/93 H 05/16/19 19:38 O2 Sat by Pulse Oximetry (%) 96 05/15/19 09:00 GENERAL: The patient is awake, alert, and fully oriented, labored breathing. HEAD: Normal with no signs of trauma. EYES: PERRL, extraocular movements intact, sclera anicteric, conjunctiva clear. ENT: Ears normal, oropharynx clear without exudates, moist mucous membranes. NECK: Trachea midline, full range of motion, supple. LUNGS: decreased Breath sounds bl, positive for wheezing continues but improving , positive for crackles, no accessory muscle use. HEART: Regular rate and rhythm, S1, S2 without murmur, rub or gallop. ABDOMEN: Soft, nontender, nondistended, normoactive bowel sounds, no guarding, no rebound, no hepatosplenomegaly, no masses. EXTREMITIES: 2+ pulses, warm, well-perfused, bl amputation left below knee, right above knee NEUROLOGICAL: Cranial nerves II through XII grossly intact. Normal speech, gait not observed. PSYCH: Normal mood, normal affect. SKIN: Warm, dry, normal turgor, no rashes or lesions noted . CBCD WBC 10.6 K/mm3 (4.0-10.0) H 05/16/19 14:45 RBC 2.70 M/mm3 (4.00-5.60) L 05/16/19 14:45 Hgb 7.7 GM/dL (11.7-16.9) L 05/16/19 14:45 Hct 24.1 % (35.4-49) L 05/16/19 14:45 MCV 89.1 fl (80-96) 05/16/19 14:45 MCHC 31.8 g/dl (32.0-35.9) L 05/16/19 14:45 RDW 17.4 % (11.9-15.9) H 05/16/19 14:45 Plt Count 303 K/MM3 (134-434) 05/16/19 14:45 MPV 7.3 fl (7.5-11.1) L 05/16/19 14:45 CMP Sodium 137 mmol/L (136-145) 05/16/19 14:45 Potassium 4.5 mmol/L (3.5-5.1) 05/16/19 14:45 Chloride 100 mmol/L (98-107) 05/16/19 14:45 Carbon Dioxide 32 mmol/L (21-32) 05/16/19 14:45 Anion Gap 5 MMOL/L (8-16) L 05/16/19 14:45 BUN 47.9 mg/dL (7-18) H 05/16/19 14:45 Creatinine 4.4 mg/dL (0.55-1.3) H 05/16/19 14:45 Random Glucose 279 mg/dL (74-106) H 05/16/19 14:45 Calcium 8.1 mg/dL (8.5-10.1) L 05/16/19 14:45 Total Bilirubin 0.6 mg/dL (0.2-1) 05/14/19 09:45 AST 9 U/L (15-37) L 05/14/19 09:45 ALT 21 U/L (13-61) 05/14/19 09:45 Alkaline Phosphatase 175 U/L (45-117) H 05/14/19 09:45 Total Protein 6.4 g/dl (6.4-8.2) 05/14/19 09:45 Albumin 2.4 g/dl (3.4-5.0) L 05/14/19 09:45 CARDIAC ENZYMES Creatine Kinase 84 U/L (26-308) 05/09/19 08:14 Troponin I < 0.02 ng/ml (0.00-0.05) 05/09/19 08:14 Current Medications Generic Name Dose Route Start Last Admin Trade Name Freq PRN Reason Stop Dose Admin Albuterol/Ipratropium 1 amp 05/15/19 12:00 05/16/19 20:50 Duoneb - NEB 1 amp RQID IGGY Administration Azithromycin 500 mg 05/16/19 13:00 05/16/19 14:56 Zithromax - PO 05/20/19 10:01 500 mg DAILY [facility] Administration Bacitracin 1 applic 05/12/19 11:15 05/16/19 21:47 Bacitracin - TP 1 applic BID [facility] Administration Doxazosin Mesylate 2 mg 05/09/19 22:00 05/16/19 21:47 Cardura - PO 2 mg HS [facility]GGY Administration Fluticasone Propionate 1 spray 05/09/19 10:00 05/16/19 11:01 Flonase - NS Not Given DAILY I[facility] Gabapentin 300 mg 05/09/19 14:00 05/16/19 21:47 Neurontin - PO 300 mg TID [facility]Y Administration Heparin Sodium (Porcine) 5,000 unit 05/12/19 22:00 05/16/19 21:47 Heparin - SQ 5,000 unit TID [facility] Administration Insulin Aspart 1 vial 05/11/19 14:51 05/16/19 11:38 Novolog Vial Sliding Scale - SQ 4 units TIDAC [facility] Administration Protocol Insulin Detemir 3 units 05/11/19 09:57 05/16/19 21:48 Levemir Vial SQ 3 units HS [facility] Administration Lidocaine 1 patch 05/09/19 10:00 05/16/19 10:55 Lidoderm Patch - TP 1 patch DAILY [facility] Administration Losartan Potassium 25 mg 05/13/19 10:00 05/16/19 10:57 Cozaar - PO 25 mg DAILY [facility] Administration Miscellaneous 1 each 05/09/19 22:00 05/16/19 21:48 Lidoderm Patch Removal MC 1 each DAILY@2200 [facility] Administration Multivit/Ca Carb/B Cmplx/FA/Prenat 1 tablet 05/09/19 10:00 05/16/19 10:57 Nephro-Guilherme - PO 1 tablet DAILY [facility] Administration Nifedipine 90 mg 05/13/19 10:00 05/16/19 10:57 Procardia Xl - PO 90 mg DAILY [facility] Administration Tiotropium [place] 2 puff 05/10/19 10:00 05/16/19 11:02 Spiriva Respimat IH Not Given DAILY [facility] Torsemide 80 mg 05/16/19 10:00 05/16/19 10:57 Demadex - PO 80 mg DAILY [facility] Administration Trazodone HCl 400 mg/ 450 mg 05/09/19 22:15 05/16/19 21:47 Trazodone HCl 50 mg PO 450 mg HS [facility] Administration Vitamin A/Vitamin D 1 applic 05/14/19 18:00 05/16/19 12:56 Vitamin A & D Top Oint - TP 1 applic Q6HPO [facility] Administration Home Medications Medication Instructions Recorded Fluticasone Prop 0.05% Nasal 1 - 2 spray NS DAILY #1 spray.pump 08/23/17 [Flonase -] Lidocaine 5% Patch [Lidoderm -] 1 patch TP DAILY patch 10/06/17 Lidocaine Patch Removal [Lidoderm 1 each MC DAILY@2200 each 10/06/17 Patch Removal] traZODone HCL [Desyrel -] 450 mg PO HS 04/07/19 Methadone [Dolophine -] 2.5 mg PO TID 04/16/19 Doxazosin Mesylate [Cardura -] 2 mg PO HS #30 tablet 04/20/19 Gabapentin [Neurontin -] 300 mg PO TID #90 capsule 04/20/19 Insulin Sliding Scale [Novolog 1 vial SQ TIDAC #1 vial 04/20/19 Vial Sliding Scale -] Nifedipine ER [Procardia XL -] 60 mg PO DAILY #30 tab.er.24 04/20/19 Vitamin B Comp W-C [Nephro-Guilherme -] 1 tablet PO DAILY #30 tablet 04/20/19 Insulin (Levemir) [Levemir Vial] 12 unit SQ HS 05/10/19 Doxazosin Mesylate 4 mg PO DAILY 05/11/19 Gabapentin 100 mg PO BID 05/11/19 Nifedipine ER [Procardia Xl -] 90 mg PO DAILY 05/11/19 05/09/19 10:14 Urine - Urine Clean Catch Urine Culture - Final Gram Negative [facility] CT for mediastinal lymphadenopathy Assessment and plan: patient is a 63 y/o man with h/o ESRD on HD (TTS), IDDM, HTN, PVD s/p L BKA, Diabetic neuropathy, MRSA bacteremia , 10/14, R IJ thrombus, 10/14 , R foot OM and necrotizing fasciitis , s/p R BKA 04/16, MSSA bacteremia , normocytic anemia ,who presented due to anemia. #Lora brown sputum started on zithromax as per ID # Acute pulmonary edema with SOB; continue HD as needed, getting HD as needed prn. persistent congestive changes. # Acute on chronic normocytic anemia: due ESRD # ESRD: HD per renal, nephro on the case. continue dialysis prn as per nephro. # DM: with hypoglycemia this am. continue with SS with coverage , SSI coverage and no HS coverage , sensitive to insulin # Hx HTN: cont nifedipine 90 mg (increased) , and cardura, losartan and monitor K. d/w renal #Chronic pain: cont methadone and lidocaine patch DVT Px: heparin sq Visit type - Emergency Visit Emergency Visit: Yes ED Registration Date: 05/09/19 Care time: The patient presented to the Emergency Department on the above date and was hospitalized for further evaluation of their emergent condition. - New Patient This patient is new to me today: No - Critical Care Critical Care patient: No - Discharge Referral Referred to [facility] No
[2019-05-16] MEDS: METHADONE HCL 10 MG TABLET PO SCH (23:08)
[2019-05-17] MEDS: VITAMINS A AND D TOPICAL OINTMENT 60 GM TUBE TP SCH ×4 (00:52→18:09)
[2019-05-17] MEDS: INSULIN SLIDING SCALE (NOVOLOG) 1 VIAL SQ SCH ×3 (06:16→16:07)
[2019-05-17] MEDS: METHADONE HCL 10 MG TABLET PO SCH ×3 (06:17→22:32)
[2019-05-17] MEDS: HEPARIN NA (PORCINE) 5,000 UNITS/ML 1ML VIAL SQ SCH ×3 (06:18→21:15)
[2019-05-17] MEDS: GABAPENTIN 300 MG CAPSULE PO SCH ×3 (06:18→21:15)
[2019-05-17] MEDS ORDERED: INSULIN (NOVOLOG) ASPART 100 UNITS/ML 10ML VIAL ONE (06:31)
[2019-05-17] MEDS: ALBUTEROL SO4 2.5/IPRATROPIUM 0.5 INH SOL 3 ML VIAL.NEB. NEB SCH ×4 (07:50→20:50)
[2019-05-17] MEDS ORDERED: PT OWN MED DRAWER 7, Y5N ONE ×2 (09:25→21:10)
[2019-05-17] MEDS: TORSEMIDE 20 MG TABLET (FP) PO SCH (09:33)
[2019-05-17] MEDS: LIDOCAINE 5% TOPICAL PATCH TP SCH (09:33)
[2019-05-17] MEDS: VITAMIN B COMP W-C 1 EA TABLET PO SCH (09:34)
[2019-05-17] MEDS: NIFEdipine E.R. 90 MG TABLET PO SCH (09:34)
[2019-05-17] MEDS: AZITHROMYCIN 250 MG TABLET PO SCH (09:34)
[2019-05-17] MEDS: LOSARTAN POTASSIUM 25 MG TABLET PO SCH (09:35)
[2019-05-17] MEDS: FLUTICASONE PROP 0.05% 16 GM NASAL SPRAY NS SCH (09:35)
[2019-05-17] MEDS: TIOTROPIUM BROMIDE 2.5 MCG (SPIRIVA) RESPIMAT INHALER IH SCH (09:40)
--- NOTE | 2019-05-17 10:52 | PN ---
Teaching Attending Note Name of Resident: Prashant Arzola ATTENDING PHYSICIAN STATEMENT I saw and evaluated the patient. I reviewed the resident's note and discussed the case with the resident. I agree with the resident's findings and plan as documented. SUBJECTIVE: patient continues to be shortness of breath, with wheezing Vital Signs Temperature 97.9 F 05/17/19 09:00 Pulse Rate 86 05/17/19 09:00 Respiratory Rate 20 05/17/19 09:00 Blood Pressure 147/73 05/17/19 09:00 O2 Sat by Pulse Oximetry (%) 96 05/15/19 09:00 GENERAL: The patient is awake, alert, and fully oriented, labored breathing. HEAD: Normal with no signs of trauma. EYES: PERRL, extraocular movements intact, sclera anicteric, conjunctiva clear. ENT: Ears normal, oropharynx clear without exudates, moist mucous membranes. NECK: Trachea midline, full range of motion, supple. LUNGS: decreased Breath sounds bl, positive for wheezing continues but improving slowly , positive for crackles, no accessory muscle use. HEART: Regular rate and rhythm, S1, S2 without murmur, rub or gallop. ABDOMEN: Soft, nontender, nondistended, normoactive bowel sounds, no guarding, no rebound, no hepatosplenomegaly, no masses. EXTREMITIES: 2+ pulses, warm, well-perfused, bl amputation left below knee, right above knee NEUROLOGICAL: Cranial nerves II through XII grossly intact. Normal speech, gait not observed. PSYCH: Normal mood, normal affect. SKIN: Warm, dry, normal turgor, no rashes or lesions noted . CBCD WBC 10.6 K/mm3 (4.0-10.0) H 05/16/19 14:45 RBC 2.70 M/mm3 (4.00-5.60) L 05/16/19 14:45 Hgb 7.7 GM/dL (11.7-16.9) L 05/16/19 14:45 Hct 24.1 % (35.4-49) L 05/16/19 14:45 MCV 89.1 fl (80-96) 05/16/19 14:45 MCHC 31.8 g/dl (32.0-35.9) L 05/16/19 14:45 RDW 17.4 % (11.9-15.9) H 05/16/19 14:45 Plt Count 303 K/MM3 (134-434) 05/16/19 14:45 MPV 7.3 fl (7.5-11.1) L 05/16/19 14:45 CMP Sodium 137 mmol/L (136-145) 05/16/19 14:45 Potassium 4.5 mmol/L (3.5-5.1) 05/16/19 14:45 Chloride 100 mmol/L (98-107) 05/16/19 14:45 Carbon Dioxide 32 mmol/L (21-32) 05/16/19 14:45 Anion Gap 5 MMOL/L (8-16) L 05/16/19 14:45 BUN 47.9 mg/dL (7-18) H 05/16/19 14:45 Creatinine 4.4 mg/dL (0.55-1.3) H 05/16/19 14:45 Random Glucose 279 mg/dL (74-106) H 05/16/19 14:45 Calcium 8.1 mg/dL (8.5-10.1) L 05/16/19 14:45 Total Bilirubin 0.6 mg/dL (0.2-1) 05/14/19 09:45 AST 9 U/L (15-37) L 05/14/19 09:45 ALT 21 U/L (13-61) 05/14/19 09:45 Alkaline Phosphatase 175 U/L (45-117) H 05/14/19 09:45 Total Protein 6.4 g/dl (6.4-8.2) 05/14/19 09:45 Albumin 2.4 g/dl (3.4-5.0) L 05/14/19 09:45 CARDIAC ENZYMES Creatine Kinase 84 U/L (26-308) 05/09/19 08:14 Troponin I < 0.02 ng/ml (0.00-0.05) 05/09/19 08:14 Current Medications Generic Name Dose Route Start Last Admin Trade Name Freq PRN Reason Stop Dose Admin Albuterol/Ipratropium 1 amp 05/15/19 12:00 05/17/19 07:50 Duoneb - NEB 1 amp RQID IGGY Administration Azithromycin 500 mg 05/16/19 13:00 05/17/19 09:34 Zithromax - PO 05/20/19 10:01 500 mg DAILY IGGY Administration Bacitracin 1 applic 05/12/19 11:15 05/16/19 21:47 Bacitracin - TP 1 applic BID IGGY Administration Doxazosin Mesylate 2 mg 05/09/19 22:00 05/16/19 21:47 Cardura - PO 2 mg HS IGGY Administration Fluticasone Propionate 1 spray 05/09/19 10:00 05/17/19 09:35 Flonase - NS 1 spray DAILY [facility] Administration Gabapentin 300 mg 05/09/19 14:00 05/17/19 06:18 Neurontin - PO 300 mg TID IGGY Administration Heparin Sodium (Porcine) 5,000 unit 05/12/19 22:00 05/17/19 06:18 Heparin - SQ 5,000 unit TID IGGY Administration Insulin Aspart 1 vial 05/11/19 14:51 05/17/19 06:16 Novolog Vial Sliding Scale - SQ 4 units TIDAC IGGY Administration Protocol Insulin Detemir 3 units 05/11/19 09:57 05/16/19 21:48 Levemir Vial SQ 3 units HS IGGY Administration Lidocaine 1 patch 05/09/19 10:00 05/17/19 09:33 Lidoderm Patch - TP 1 patch DAILY [facility]Y Administration Losartan Potassium 25 mg 05/13/19 10:00 05/17/19 09:35 Cozaar - PO 25 mg DAILY IGGY Administration Methadone HCl 2.5 mg 05/16/19 23:00 05/17/19 06:17 Dolophine - PO 2.5 mg Q8H IGGY Administration Miscellaneous 1 each 05/09/19 22:00 05/16/19 21:48 Lidoderm Patch Removal MC 1 each DAILY@2200 IGGY Administration Multivit/Ca Carb/B Cmplx/FA/Prenat 1 tablet 05/09/19 10:00 05/17/19 09:34 Nephro-Guilherme - PO 1 tablet DAILY [facility]Y Administration Nifedipine 90 mg 05/13/19 10:00 05/17/19 09:34 Procardia Xl - PO 90 mg DAILY IGGY Administration Tiotropium [place] 2 puff 05/10/19 10:00 05/17/19 09:40 Spiriva Respimat IH 2 puff DAILY IGGY Administration Torsemide 80 mg 05/16/19 10:00 05/17/19 09:33 Demadex - PO 80 mg DAILY IGGY Administration Trazodone HCl 400 mg/ 450 mg 05/09/19 22:15 05/16/19 21:47 Trazodone HCl 50 mg PO 450 mg HS IGGY Administration Vitamin A/Vitamin D 1 applic 05/14/19 18:00 05/17/19 06:18 Vitamin A & D Top Oint - TP 1 applic Q6HPO IGGY Administration Home Medications Medication Instructions Recorded Fluticasone Prop 0.05% Nasal 1 - 2 spray NS DAILY #1 spray.pump 08/23/17 [Flonase -] Lidocaine 5% Patch [Lidoderm -] 1 patch TP DAILY patch 10/06/17 Lidocaine Patch Removal [Lidoderm 1 each MC DAILY@2200 each 10/06/17 Patch Removal] traZODone HCL [Desyrel -] 450 mg PO HS 04/07/19 Methadone [Dolophine -] 2.5 mg PO TID 04/16/19 Doxazosin Mesylate [Cardura -] 2 mg PO HS #30 tablet 04/20/19 Gabapentin [Neurontin -] 300 mg PO TID #90 capsule 04/20/19 Insulin Sliding Scale [Novolog 1 vial SQ TIDAC #1 vial 04/20/19 Vial Sliding Scale -] Nifedipine ER [Procardia XL -] 60 mg PO DAILY #30 tab.er.24 04/20/19 Vitamin B Comp W-C [Nephro-Guilherme -] 1 tablet PO DAILY #30 tablet 04/20/19 Insulin (Levemir) [Levemir Vial] 12 unit SQ HS 05/10/19 Doxazosin Mesylate 4 mg PO DAILY 05/11/19 Gabapentin 100 mg PO BID 05/11/19 Nifedipine ER [Procardia Xl -] 90 mg PO DAILY 05/11/19 05/09/19 10:14 Urine - Urine Clean Catch Urine Culture - Final Gram Negative [facility] CT for mediastinal lymphadenopathy Assessment and plan: patient is a 63 y/o man with h/o ESRD on HD (TTS), IDDM, HTN, PVD s/p L BKA, Diabetic neuropathy, MRSA bacteremia , 10/14, R IJ thrombus, 10/14 , R foot OM and necrotizing fasciitis , s/p R BKA 04/16, MSSA bacteremia , normocytic anemia ,who presented due to anemia. #Elio brown sputum started on zithromax as per ID, continue day #2 # Acute pulmonary edema with SOB; continue HD as needed, getting HD as needed prn. persistent congestive changes. # Acute on chronic normocytic anemia: due ESRD # ESRD: HD per renal, nephro on the case. continue dialysis prn as per nephro. # DM: with hypoglycemia this am. continue with SS with coverage , SSI coverage and no HS coverage , sensitive to insulin # Hx HTN: cont nifedipine 90 mg (increased) , and cardura, losartan and monitor K. d/w renal #Chronic pain: cont methadone and lidocaine patch DVT Px: heparin sq continue dialysis continue zithromax
[2019-05-17] MEDS: BACITRACIN 15 GM TUBE TOPICAL OINTMENT TP SCH ×2 (12:38→21:22)
--- NOTE | 2019-05-17 13:21 | PN ---
Progress Note (short form) - Note Progress Note: PULMONARY Still short of breath. +nonproductive cough. No fevers. Vital Signs Period Temp Pulse Resp BP Sys/Gutierrez Pulse Ox Last 24 Hr 97.7 F-98.1 F 78-89 18-20 147-177/73-95 97 Gen: less tachypneic at rest Heart: RRR Lung: scattered rhonchi Abd: soft, nontender Ext: bilateral BKA CBC, BMP 05/16/19 14:45 05/16/19 14:45 Active Medications Albuterol/Ipratropium (Duoneb -) 1 amp NEB RQID [facility] Last Admin: 05/17/19 11:35 Dose: 1 amp Azithromycin (Zithromax -) 500 mg PO DAILY [facility] Stop: 05/20/19 10:01 Last Admin: 05/17/19 09:34 Dose: 500 mg Bacitracin (Bacitracin -) 1 applic TP BID [facility] Last Admin: 05/17/19 12:38 Dose: 1 applic Doxazosin Mesylate (Cardura -) 2 mg PO HS [facility] Last Admin: 05/16/19 21:47 Dose: 2 mg Fluticasone Propionate (Flonase -) 1 spray NS DAILY [facility] Last Admin: 05/17/19 09:35 Dose: 1 spray Gabapentin (Neurontin -) 300 mg PO TID [facility] Last Admin: 05/17/19 06:18 Dose: 300 mg Heparin Sodium (Porcine) (Heparin -) 5,000 unit SQ TID [facility] Last Admin: 05/17/19 06:18 Dose: 5,000 unit Insulin Aspart (Novolog Vial Sliding Scale -) 1 vial SQ TIDAC [facility]; Protocol Last Admin: 05/17/19 11:43 Dose: 2 units Insulin Detemir (Levemir Vial) 3 units SQ Q12H [facility] Lidocaine (Lidoderm Patch -) 1 patch TP DAILY [facility] Last Admin: 05/17/19 09:33 Dose: 1 patch Losartan Potassium (Cozaar -) 25 mg PO DAILY [facility] Last Admin: 05/17/19 09:35 Dose: 25 mg Methadone HCl (Dolophine -) 2.5 mg PO Q8H [facility] Last Admin: 05/17/19 06:17 Dose: 2.5 mg Miscellaneous (Lidoderm Patch Removal) 1 each MC DAILY@2200 [facility] Last Admin: 05/16/19 21:48 Dose: 1 each Multivit/Ca Carb/B Cmplx/FA/Prenat (Nephro-Guilherme -) 1 tablet PO DAILY [facility] Last Admin: 05/17/19 09:34 Dose: 1 tablet Nifedipine (Procardia Xl -) 90 mg PO DAILY [facility] Last Admin: 05/17/19 09:34 Dose: 90 mg Tiotropium [place] (Spiriva Respimat) 2 puff IH DAILY [facility] Last Admin: 05/17/19 09:40 Dose: 2 puff Torsemide (Demadex -) 80 mg PO DAILY [facility] Last Admin: 05/17/19 09:33 Dose: 80 mg Trazodone HCl 400 mg/ (Trazodone HCl 50 mg) 450 mg PO HS [facility] Last Admin: 05/16/19 21:47 Dose: 450 mg Vitamin A/Vitamin D (Vitamin A & D Top Oint -) 1 applic TP Q6HPO [facility] Last Admin: 05/17/19 12:38 Dose: 1 applic A/P Volume Overload Acute on Chronic Diastolic Heart Failure Anemia s/p 4 unit PRBC transfusion r/o Transfusion Associated Circulatory Overload Acute Bronchitis ESRD on HD HTN DM Bilateral BKA h/o Osteomyelitis - continue azithromycin - HD per renal with ultrafiltration - repeat CXR in AM - O2 to keep Spo2 >90% - inhaled bronchodilators as needed - will need f/u CT chest in 6-8 weeks when euvolemic - DVT prophylaxis
--- NOTE | 2019-05-17 16:34 | PN ---
Physical Exam: SUBJECTIVE: Patient seen and examined NAEON Endorses improvement in breathing. Thinks sputum is better than yesterday OBJECTIVE: Vital Signs Period Temp Pulse Resp BP Sys/Gutierrez Pulse Ox Last 24 Hr 97.7 F-98.1 F 79-89 18-20 138-177/73-93 97 GENERAL: The patient is awake, alert, and fully oriented, in no acute distress. HEAD: NC/AT. EYES: sclera anicteric, conjunctiva clear. No ptosis. ENT: Ears normal, nares patent, oropharynx clear without exudates, moist mucous membranes. NECK: Trachea midline, full range of motion, supple. LUNGS: Mild b/l wheezes w/ coarse BS, no accessory muscle use. HEART: Regular rate and rhythm, S1, S2 without murmur, rub or gallop. ABDOMEN: Soft, nontender, nondistended, normoactive bowel sounds, no guarding. EXTREMITIES: warm, no edema. Amputation incisions intact and w/o drainage. Sensation intact. LUE AVF w/ palpable thrill NEUROLOGICAL: Normal speech, gait not observed. PSYCH: Normal mood, normal affect. SKIN: Warm, dry, normal turgor, no rashes or lesions noted Laboratory Results - last 24 hr 05/16/19 05/16/19 05/16/19 14:45 14:45 21:44 WBC 10.6 H RBC 2.70 L Hgb 7.7 L Hct 24.1 L MCV 89.1 MCH 28.3 MCHC 31.8 L RDW 17.4 H Plt Count 303 MPV 7.3 L Sodium 137 Potassium 4.5 Chloride 100 Carbon Dioxide 32 Anion Gap 5 L BUN 47.9 H Creatinine 4.4 H Est GFR (CKD-EPI)AfAm 15.41 Est GFR (CKD-EPI)NonAf 13.30 POC Glucometer 299 Random Glucose 279 H Calcium 8.1 L Phosphorus 4.1 05/17/19 05/17/19 05/17/19 06:08 11:38 16:01 WBC RBC Hgb Hct MCV MCH MCHC RDW Plt Count MPV Sodium Potassium Chloride Carbon Dioxide Anion Gap BUN Creatinine Est GFR (CKD-EPI)AfAm Est GFR (CKD-EPI)NonAf POC Glucometer 305 281 231 Random Glucose Calcium Phosphorus Active Medications Generic Name Dose Route Start Last Admin Trade Name Freq PRN Reason Stop Dose Admin Albuterol/Ipratropium 1 amp 05/15/19 12:00 05/17/19 15:45 Duoneb - NEB 1 amp RQID IGGY Administration Azithromycin 500 mg 05/16/19 13:00 05/17/19 09:34 Zithromax - PO 05/20/19 10:01 500 mg DAILY IGGY Administration Bacitracin 1 applic 05/12/19 11:15 05/17/19 12:38 Bacitracin - TP 1 applic BID IGGY Administration Doxazosin Mesylate 2 mg 05/09/19 22:00 05/16/19 21:47 Cardura - PO 2 mg HS IGGY Administration Fluticasone Propionate 1 spray 05/09/19 10:00 05/17/19 09:35 Flonase - NS 1 spray DAILY [facility] Administration Gabapentin 300 mg 05/09/19 14:00 05/17/19 14:12 Neurontin - PO 300 mg TID IGGY Administration Heparin Sodium (Porcine) 5,000 unit 05/12/19 22:00 05/17/19 14:12 Heparin - SQ 5,000 unit TID IGG[facility] Administration Insulin Aspart 1 vial 05/11/19 14:51 05/17/19 16:07 Novolog Vial Sliding Scale - SQ Not [facility] Protocol Insulin Detemir 3 units 05/17/19 20:00 Levemir Vial SQ Q12H [facility] Lidocaine 1 patch 05/09/19 10:00 05/17/19 09:33 Lidoderm Patch - TP 1 patch DAILY [facility] Administration Losartan Potassium 25 mg 05/13/19 10:00 05/17/19 09:35 Cozaar - PO 25 mg DAILY [facility] Administration Methadone HCl 2.5 mg 05/16/19 23:00 05/17/19 14:34 Dolophine - PO 2.5 mg Q8H [facility] Administration Miscellaneous 1 each 05/09/19 22:00 05/16/19 21:48 Lidoderm Patch Removal MC 1 each DAILY@2200 [facility] Administration Multivit/Ca Carb/B Cmplx/FA/Prenat 1 tablet 05/09/19 10:00 05/17/19 09:34 Nephro-Guilherme - PO 1 tablet DAILY [facility] Administration Nifedipine 90 mg 05/13/19 10:00 05/17/19 09:34 Procardia Xl - PO 90 mg DAILY [facility] Administration Tiotropium [place] 2 puff 05/10/19 10:00 05/17/19 09:40 Spiriva Respimat IH 2 puff DAILY [facility] Administration Torsemide 80 mg 05/16/19 10:00 05/17/19 09:33 Demadex - PO 80 mg DAILY [facility] Administration Trazodone HCl 400 mg/ 450 mg 05/09/19 22:15 05/16/19 21:47 Trazodone HCl 50 mg PO 450 mg HS [facility] Administration Vitamin A/Vitamin D 1 applic 05/14/19 18:00 05/17/19 12:38 Vitamin A & D Top Oint - TP 1 applic Q6HPO [facility] Administration ASSESSMENT/PLAN: 63 y/o male PMH HTN, insulin treated DM, ESRD (TTS), PVD s/p BL BKA (2018) and MRSA bacteremia brought in for anemia. Overnight chest CT suspicous of blood clot but not likely given final read. Presented w/ complaint of sudden onset SOB consistent with crackles on PE and HD day prior to admission with removal of 3kg. No fevers recorded. CXR with congestive changes. SOB improving with HD. Complaint of brown sputum prompted azithromycin. BGM in the 300s prompted Levemir incr to 3U BID # SOB > weight: 80.7 ...78.0 - Pulm already consulted: CT chest findings and clinical exam more consistent with volume overload, mediastinal lymphadenopathy and sabino hepatis can be seen with decompensated heart failure or volume overload/TACO --rpt CXR AM 05/18/19 --outpt CT Chest in 6-8wk - HD per renal with ultrafiltration, likely needs a lower dry weight - cw HD -- 4.0L on 05/16/19 # Lung/mediastinal mass - Lymphoma vs lung cancer - Pulmonary consult noted as above; more likely atelectasis - F/u heme/onc recommendation # Normocytic anemia - Repeat afternoon CBC demonstrates stable h/h - Most likely ACD however poss hemolysis given low Hb despite transfusion - LDH normal and haptoglobin pending - Heme/onc consulted: Severe ACD and iron studies s/o chronic disease; stool occult is negative # ESRD - Renal consulted: Dialysis - 1.2L fluid restriction # Chronic pain - Methadone 2.5 mg PO TID - Lidocaine patch # DM - Hold home regimen - ISS ACHS with gentle modification/please see sliding scale instructions - Insulin Levemir: 3 units BID - Gabapentin 300 mg PO TID # HTN - Cont. curent home regimen: Nifedipine ER 90 mg PO QD (changed from 60 mg), doxazosin 2 mg PO HS, ADDED Losartan 25 mg PO QD # Possible PE, ruled out - Overnight read of, "subsegmental peripheral right lung pulmonary embolism, no saddle embolus, interstitial edema, some infiltrates likely infection and a possibility for malignancy in the lungs, because the left heart border had suspicions for small cell carcinoma with mediastinal lymphadenopathy and sabino hepatis. There is concern for Lymphoma with recommendation for CT A/P (non- emergent)." - Pt hemodynamically stable - D dimer 1,438 - Pt elected for PO anticoag with Eliquis after lengthy discussion (please see attending note) - Pulm consulted: Do not suspect PE at this time. CT chest findings and clinical exam more consistent with volume overload, mediastinal lymphadenopathy and sabino hepatis can be seen with decompensated heart failure or volume overload/TACO. Do not suspect lung mass, more likely atelectasis. Can d/c anticoagulation - US of LE: neg for DVT - F/u CT in 6-8 weeks # E coli in urine - < 10k cfu - Pt asymptomatic # F/E/N - PO; 1.2L fluid restriction - Cont. to monitor - Low sodium, diabetic diet # DVT prophylaxis - Heparin SQ # Disposition - Med/surg Visit type - Emergency Visit Emergency Visit: No - New Patient This patient is new to me today: No - Critical Care Critical Care patient: No ATTENDING PHYSICIAN STATEMENT I saw and evaluated the patient. I reviewed the resident's note and discussed the case with the resident. I agree with the resident's findings and plan as documented. SUBJECTIVE: OBJECTIVE: ASSESSMENT AND PLAN:
--- NOTE | 2019-05-17 19:26 | PN ---
Progress Note, Physician History of Present Illness: Pt c/o SOB. States cough is only productive in the morning. Remains afebrile. No new complaints. - Current Medication List Current Medications: Active Medications Albuterol/Ipratropium (Duoneb -) 1 amp NEB RQID [facility] Last Admin: 05/17/19 15:45 Dose: 1 amp Azithromycin (Zithromax -) 500 mg PO DAILY [facility] Stop: 05/20/19 10:01 Last Admin: 05/17/19 09:34 Dose: 500 mg Bacitracin (Bacitracin -) 1 applic TP BID [facility] Last Admin: 05/17/19 12:38 Dose: 1 applic Doxazosin Mesylate (Cardura -) 2 mg PO HS [facility] Last Admin: 05/16/19 21:47 Dose: 2 mg Fluticasone Propionate (Flonase -) 1 spray NS DAILY [facility] Last Admin: 05/17/19 09:35 Dose: 1 spray Gabapentin (Neurontin -) 300 mg PO TID [facility] Last Admin: 05/17/19 14:12 Dose: 300 mg Heparin Sodium (Porcine) (Heparin -) 5,000 unit SQ TID [facility] Last Admin: 05/17/19 14:12 Dose: 5,000 unit Insulin Aspart (Novolog Vial Sliding Scale -) 1 vial SQ TIDAC [facility]; Protocol Last Admin: 05/17/19 16:07 Dose: Not Given Insulin Detemir (Levemir Vial) 3 units SQ Q12H [facility] Lidocaine (Lidoderm Patch -) 1 patch TP DAILY [facility] Last Admin: 05/17/19 09:33 Dose: 1 patch Losartan Potassium (Cozaar -) 25 mg PO DAILY [facility] Last Admin: 05/17/19 09:35 Dose: 25 mg Methadone HCl (Dolophine -) 2.5 mg PO Q8H [facility] Last Admin: 05/17/19 14:34 Dose: 2.5 mg Miscellaneous (Lidoderm Patch Removal) 1 each MC DAILY@2200 [facility] Last Admin: 05/16/19 21:48 Dose: 1 each Multivit/Ca Carb/B Cmplx/FA/Prenat (Nephro-Guilherem -) 1 tablet PO DAILY [facility] Last Admin: 05/17/19 09:34 Dose: 1 tablet Nifedipine (Procardia Xl -) 90 mg PO DAILY [facility] Last Admin: 05/17/19 09:34 Dose: 90 mg Tiotropium [place] (Spiriva Respimat) 2 puff IH DAILY [facility] Last Admin: 05/17/19 09:40 Dose: 2 puff Torsemide (Demadex -) 80 mg PO DAILY [facility] Last Admin: 05/17/19 09:33 Dose: 80 mg Trazodone HCl 400 mg/ (Trazodone HCl 50 mg) 450 mg PO HS [facility] Last Admin: 05/16/19 21:47 Dose: 450 mg Vitamin A/Vitamin D (Vitamin A & D Top Oint -) 1 applic TP Q6HPO [facility] Last Admin: 05/17/19 18:09 Dose: 1 applic - Objective Vital Signs: Vital Signs Temperature 97.7 F 05/17/19 14:09 Pulse Rate 89 05/17/19 14:09 Respiratory Rate 05/17/19 14:09 Blood Pressure 138/74 05/17/19 14:09 O2 Sat by Pulse Oximetry (%) 97 05/17/19 09:00 Constitutional: Yes: No Distress, Calm Cardiovascular: Yes: Regular Rate and Rhythm Respiratory: Yes: Rhonchi Gastrointestinal: Yes: Normal Bowel Sounds, Soft Extremities: Yes: Amputation (b/l LE) Integumentary: Yes: WNL Neurological: Yes: Alert Labs: CBC, BMP 05/16/19 14:45 05/16/19 14:45 INR, PTT INR 1.38 (0.83-1.09) H 05/11/19 13:30 Microbiology 05/09/19 10:14 Urine - Urine Clean Catch Urine Culture - Final Gram Negative [place] Problem List - Problems (1) ESRD (end stage renal disease) Code(s): N18.6 - END STAGE RENAL DISEASE (2) Acute on chronic diastolic heart failure Code(s): I50.33 - ACUTE ON CHRONIC DIASTOLIC (CONGESTIVE) HEART FAILURE (3) Below-knee amputation Code(s): S88.119A - COMPLETE TRAUM AMP AT LEV BETW KN & ANKL, UNSP LOW LEG, INIT (4) COPD with emphysema Code(s): J43.9 - EMPHYSEMA, UNSPECIFIED (5) Diabetes mellitus, insulin dependent (IDDM), controlled Code(s): E11.9 - TYPE 2 DIABETES MELLITUS WITHOUT COMPLICATIONS; Z79.4 - SKILLED NURSING (CURRENT) USE OF INSULIN (6) Diabetic neuropathy Code(s): E11.40 - TYPE 2 DIABETES MELLITUS WITH DIABETIC NEUROPATHY, UNSP Qualifiers: Diabetes mellitus type: type 2 Diabetes mellitus complication detail: diabetic polyneuropathy Qualified Code(s): E11.42 - Type 2 diabetes mellitus with diabetic polyneuropathy Assessment/Plan Acute on Chronic Diastolic Heart Failure Anemia s/p 4 unit PRBC transfusion r/o Transfusion Associated Circulatory Overload ESRD on HD HTN DM Bilateral BKA h/o Osteomyelitis bleeding per rectum -- continue Azithromycin , pt still with c/o SOB but cough is less productive today -- CXR to be repeated in a.m. monitor vitals, currently stable
[2019-05-17] MEDS ORDERED: traZODone HCL 100 MG TABLET (FP) ONE (21:09)
[2019-05-17] MEDS ORDERED: traZODone HCL 50 MG TABLET (FP) ONE (21:09)
--- NOTE | 2019-05-17 21:11 | PN ---
Progress Note (short form) - Note Progress Note: for hemodialysis today Current Medications Albuterol/Ipratropium (Duoneb -) 1 amp NEB RQID [facility] Last Admin: 05/17/19 15:45 Dose: 1 amp Azithromycin (Zithromax -) 500 mg PO DAILY [facility] Stop: 05/20/19 10:01 Last Admin: 05/17/19 09:34 Dose: 500 mg Bacitracin (Bacitracin -) 1 applic TP BID [facility] Last Admin: 05/17/19 12:38 Dose: 1 applic Doxazosin Mesylate (Cardura -) 2 mg PO HS [facility] Last Admin: 05/16/19 21:47 Dose: 2 mg Fluticasone Propionate (Flonase -) 1 spray NS DAILY [facility] Last Admin: 05/17/19 09:35 Dose: 1 spray Gabapentin (Neurontin -) 300 mg PO TID [facility] Last Admin: 05/17/19 14:12 Dose: 300 mg Heparin Sodium (Porcine) (Heparin -) 5,000 unit SQ TID [facility] Last Admin: 05/17/19 14:12 Dose: 5,000 unit Insulin Aspart (Novolog Vial Sliding Scale -) [facility]; Protocol Last Admin: 05/17/19 16:07 Dose: Not Given Insulin Detemir (Levemir Vial) 3 units SQ Q12H [facility] Lidocaine (Lidoderm Patch -) 1 patch TP DAILY [facility] Last Admin: 05/17/19 09:33 Dose: 1 patch Losartan Potassium (Cozaar -) 25 mg PO DAILY [facility] Last Admin: 05/17/19 09:35 Dose: 25 mg Methadone HCl (Dolophine -) 2.5 mg PO Q8H [facility] Last Admin: 05/17/19 14:34 Dose: 2.5 mg Miscellaneous (Lidoderm Patch Removal) 1 each MC DAILY@2200 [facility] Last Admin: 05/16/19 21:48 Dose: 1 each Multivit/Ca Carb/B Cmplx/FA/Prenat (Nephro-Guilherme -) 1 tablet PO DAILY [facility] Last Admin: 05/17/19 09:34 Dose: 1 tablet Nifedipine (Procardia Xl -) 90 mg PO DAILY [facility] Last Admin: 05/17/19 09:34 Dose: 90 mg Tiotropium [place] (Spiriva Respimat) 2 puff IH DAILY [facility] Last Admin: 05/17/19 09:40 Dose: 2 puff Torsemide (Demadex -) 80 mg PO DAILY [facility] Last Admin: 05/17/19 09:33 Dose: 80 mg Trazodone HCl 400 mg/ (Trazodone HCl 50 mg) 450 mg PO HS [facility] Last Admin: 05/16/19 21:47 Dose: 450 mg Vitamin A/Vitamin D (Vitamin A & D Top Oint -) 1 applic TP Q6HPO [facility] Last Admin: 05/17/19 18:09 Dose: 1 applic Last Vital Signs Temp Pulse Resp BP Pulse Ox 97.7 F 89 20 138/74 97 05/17/19 14:09 05/17/19 14:09 05/17/19 14:09 05/17/19 14:09 05/17/19 09:00 Lungs clear Heart reg Abd soft Ext no edema CBC, BMP 05/14/19 09:45 05/14/19 09:45 IMP ESRD DM, hypertension, PVD s/p bilateral BKA worsening anemia Fluid overload r/o ADRIAN resistance 2/2 recent infection HD maintenance
[2019-05-17] MEDS: TRAZODONE HCL PO SCH (21:15)
[2019-05-17] MEDS: INSULIN (LEVEMIR) 100 UNITS/ML UNITS SQ SCH (21:19)
[2019-05-17] MEDS: LIDOCAINE PATCH REMOVAL MC SCH (21:23)
[2019-05-17] MEDS: DOXAZOSIN MESYLATE 2 MG TABLET PO SCH (22:33)
[2019-05-18] MEDS: VITAMINS A AND D TOPICAL OINTMENT 60 GM TUBE TP SCH ×4 (00:58→17:03)
[2019-05-18] MEDS: HEPARIN NA (PORCINE) 5,000 UNITS/ML 1ML VIAL SQ SCH ×3 (06:55→22:41)
[2019-05-18] MEDS: GABAPENTIN 300 MG CAPSULE PO SCH ×3 (06:55→22:41)
[2019-05-18] MEDS: METHADONE HCL 10 MG TABLET PO SCH ×3 (06:55→22:41)
[2019-05-18] MEDS ORDERED: INSULIN (NOVOLOG) ASPART 100 UNITS/ML 10ML VIAL ONE ×2 (06:57→12:08)
[2019-05-18] MEDS: INSULIN SLIDING SCALE (NOVOLOG) 1 VIAL SQ SCH ×4 (06:58→17:00)
[2019-05-18] MEDS: ALBUTEROL SO4 2.5/IPRATROPIUM 0.5 INH SOL 3 ML VIAL.NEB. NEB SCH ×4 (07:15→19:51)
[2019-05-18] MEDS: LIDOCAINE 5% TOPICAL PATCH TP SCH (10:39)
[2019-05-18] MEDS: AZITHROMYCIN 250 MG TABLET PO SCH (10:43)
[2019-05-18] MEDS: LOSARTAN POTASSIUM 25 MG TABLET PO SCH (10:43)
[2019-05-18] MEDS: TORSEMIDE 20 MG TABLET (FP) PO SCH (10:43)
[2019-05-18] MEDS: VITAMIN B COMP W-C 1 EA TABLET PO SCH (10:43)
[2019-05-18] MEDS: BACITRACIN 15 GM TUBE TOPICAL OINTMENT TP SCH ×2 (10:44→22:43)
[2019-05-18] MEDS: FLUTICASONE PROP 0.05% 16 GM NASAL SPRAY NS SCH (10:44)
[2019-05-18] MEDS: NIFEdipine E.R. 90 MG TABLET PO SCH (10:45)
[2019-05-18] MEDS: TIOTROPIUM BROMIDE 2.5 MCG (SPIRIVA) RESPIMAT INHALER IH SCH (10:45)
[2019-05-18] MEDS: INSULIN (LEVEMIR) 100 UNITS/ML UNITS SQ SCH ×2 (12:14→20:48)
--- NOTE | 2019-05-18 13:19 | PN ---
Progress Note, Physician History of Present Illness: stable no new issues - Current Medication List Current Medications: Active Medications Albuterol/Ipratropium (Duoneb -) 1 amp NEB RQID [facility] Last Admin: 05/18/19 11:24 Dose: 1 amp Azithromycin (Zithromax -) 500 mg PO DAILY [facility] Stop: 05/20/19 10:01 Last Admin: 05/18/19 10:43 Dose: 500 mg Bacitracin (Bacitracin -) 1 applic TP BID [facility] Last Admin: 05/18/19 10:44 Dose: 1 applic Doxazosin Mesylate (Cardura -) 2 mg PO HS [facility] Last Admin: 05/17/19 22:33 Dose: 2 mg Fluticasone Propionate (Flonase -) 1 spray NS DAILY [facility] Last Admin: 05/18/19 10:44 Dose: 1 spray Gabapentin (Neurontin -) 300 mg PO TID [facility] Last Admin: 05/18/19 06:55 Dose: 300 mg Heparin Sodium (Porcine) (Heparin -) 5,000 unit SQ TID [facility] Last Admin: 05/18/19 06:55 Dose: 5,000 unit Insulin Aspart (Novolog Vial Sliding Scale -) 1 vial SQ TIDAC [facility]; Protocol Last Admin: 05/18/19 12:14 Dose: 4 units Insulin Detemir (Levemir Vial) 3 units SQ Q12H [facility] Last Admin: 05/18/19 12:14 Dose: 3 units Lidocaine (Lidoderm Patch -) 1 patch TP DAILY [facility] Last Admin: 05/18/19 10:39 Dose: 1 patch Losartan Potassium (Cozaar -) 25 mg PO DAILY [facility] Last Admin: 05/18/19 10:43 Dose: 25 mg Methadone HCl (Dolophine -) 2.5 mg PO Q8H [facility] Last Admin: 05/18/19 06:55 Dose: 2.5 mg Miscellaneous (Lidoderm Patch Removal) 1 each MC DAILY@2200 [facility] Last Admin: 05/17/19 21:23 Dose: 1 each Multivit/Ca Carb/B Cmplx/FA/Prenat (Nephro-Guilherme -) 1 tablet PO DAILY [facility] Last Admin: 05/18/19 10:43 Dose: 1 tablet Nifedipine (Procardia Xl -) 90 mg PO DAILY [facility] Last Admin: 05/18/19 10:45 Dose: 90 mg Tiotropium [place] (Spiriva Respimat) 2 puff IH DAILY [facility] Last Admin: 05/18/19 10:45 Dose: Not Given Torsemide (Demadex -) 80 mg PO DAILY [facility] Last Admin: 05/18/19 10:43 Dose: 80 mg Trazodone HCl 400 mg/ (Trazodone HCl 50 mg) 450 mg PO HS [facility] Last Admin: 05/17/19 21:15 Dose: 450 mg Vitamin A/Vitamin D (Vitamin A & D Top Oint -) 1 applic TP Q6HPO [facility] Last Admin: 05/18/19 06:58 Dose: 1 applic - Objective Vital Signs: Vital Signs Temperature 97.7 F 05/18/19 05:01 Pulse Rate 80 05/18/19 05:01 Respiratory Rate 20 05/18/19 05:01 Blood Pressure 144/80 05/18/19 05:01 O2 Sat by Pulse Oximetry (%) 97 05/17/19 09:00 Constitutional: Yes: No Distress, Calm Cardiovascular: Yes: S1, S2 Respiratory: Yes: Regular, CTA Bilaterally Gastrointestinal: Yes: Normal Bowel Sounds, Soft Musculoskeletal: Yes: Other Extremities: Yes: Other Neurological: Yes: Alert, Oriented Psychiatric: Yes: Alert, Oriented Labs: CBC, BMP 05/16/19 14:45 05/16/19 14:45 INR, PTT INR 1.38 (0.83-1.09) H 05/11/19 13:30 Assessment/Plan Volume Overload Acute on Chronic Diastolic Heart Failure Anemia s/p 4 unit PRBC transfusion r/o Transfusion Associated Circulatory Overload ESRD on HD HTN DM Bilateral BKA h/o Osteomyelitis bleeding per rectum plan continue current mgmt close watch dialysis rest as per the team
--- NOTE | 2019-05-18 14:33 | PN ---
Progress Note (short form) - Note Progress Note: Patient seen and examined Still with mild dyspnea Last Vital Signs Temp Pulse Resp BP Pulse Ox 97.8 F 90 20 161/91 96 05/18/19 13:42 05/18/19 13:42 05/18/19 13:42 05/18/19 13:42 05/18/19 09:00 Cor: RSR, No murmurs, No gallops Lungs: Clear to P&A Abd: Soft, Normal bowel sounds, No organomegaly Ext:No significant edema Labs/Meds reviewed A/P Volume Overload Acute on Chronic Diastolic Heart Failure Anemia s/p 4 unit PRBC transfusion ESRD on HD HTN DM Bilateral BKA h/o Osteomyelitis - CT chest findings and clinical exam more consistent with volume overload, mediastinal lymphadenopathy and sabino hepatis can be seen with decompensated heart failure or volume overload/TACO - will need f/u CT chest when euvolemic - no evidence of PE-- d/c eliquis Severe anemia of chronic disease iron studies s/o chronic disease stool occult is negative Pulmonary/renal follow up Consider cardiology consult
--- NOTE | 2019-05-18 16:22 | PN ---
Progress Note (short form) - Note Progress Note: Renal follow up for ESRD on HD Seen and examined at the bedside reports shortness of breath denies any chest pain, fever, chills reports shortness of breath not improving after dialysis last dialysis was Saturday Vital Signs Temperature 97.8 F 05/18/19 13:42 Pulse Rate 90 05/18/19 13:42 Respiratory Rate 20 05/18/19 13:42 Blood Pressure 161/91 05/18/19 13:42 O2 Sat by Pulse Oximetry (%) 96 05/18/19 09:00 Intake & Output 05/15/19 05/16/19 05/17/19 05/18/19 23:59 23:59 23:59 23:59 Intake Total 550 1440 1030 350 Output Total 3000 4400 Balance -2450 -2960 1030 350 Weight 80.286 kg 79.379 kg 78.018 kg 78.131 kg NAD RRR CTA soft NT/ND no LE edema. + bilateral BKA 05/16/19 14:45 05/16/19 14:45 Current Medications Albuterol/Ipratropium (Duoneb -) 1 amp NEB RQID [facility] Last Admin: 05/18/19 16:00 Dose: 1 amp Azithromycin (Zithromax -) 500 mg PO DAILY [facility] Stop: 05/20/19 10:01 Last Admin: 05/18/19 10:43 Dose: 500 mg Bacitracin (Bacitracin -) 1 applic TP BID [facility] Last Admin: 05/18/19 10:44 Dose: 1 applic Doxazosin Mesylate (Cardura -) 2 mg PO HS [facility] Last Admin: 05/17/19 22:33 Dose: 2 mg Fluticasone Propionate (Flonase -) 1 spray NS DAILY [facility] Last Admin: 05/18/19 10:44 Dose: 1 spray Gabapentin (Neurontin -) 300 mg PO TID [facility] Last Admin: 05/18/19 14:44 Dose: 300 mg Heparin Sodium (Porcine) (Heparin -) 5,000 unit SQ TID [facility] Last Admin: 05/18/19 14:43 Dose: 5,000 unit Insulin Aspart (Novolog Vial Sliding Scale -) 1 vial SQ TIDAC [facility]; Protocol Last Admin: 05/18/19 12:14 Dose: 4 units Insulin Detemir (Levemir Vial) 3 units SQ Q12H [facility] Last Admin: 05/18/19 12:14 Dose: 3 units Lidocaine (Lidoderm Patch -) 1 patch TP DAILY [facility] Last Admin: 05/18/19 10:39 Dose: 1 patch Losartan Potassium (Cozaar -) 25 mg PO DAILY [facility] Last Admin: 05/18/19 10:43 Dose: 25 mg Methadone HCl (Dolophine -) 2.5 mg PO Q8H [facility] Last Admin: 05/18/19 14:44 Dose: 2.5 mg Miscellaneous (Lidoderm Patch Removal) 1 each MC DAILY@2200 [facility] Last Admin: 05/17/19 21:23 Dose: 1 each Multivit/Ca Carb/B Cmplx/FA/Prenat (Nephro-Guilherme -) 1 tablet PO DAILY [facility] Last Admin: 05/18/19 10:43 Dose: 1 tablet Nifedipine (Procardia Xl -) 90 mg PO DAILY [facility] Last Admin: 05/18/19 10:45 Dose: 90 mg Tiotropium [place] (Spiriva Respimat) 2 puff IH DAILY [facility] Last Admin: 05/18/19 10:45 Dose: Not Given Torsemide (Demadex -) 80 mg PO DAILY [facility] Last Admin: 05/18/19 10:43 Dose: 80 mg Trazodone HCl 400 mg/ (Trazodone HCl 50 mg) 450 mg PO HS [facility] Last Admin: 05/17/19 21:15 Dose: 450 mg Vitamin A/Vitamin D (Vitamin A & D Top Oint -) 1 applic TP Q6HPO [facility] Last Admin: 05/18/19 14:44 Dose: 1 applic 63 year old gentleman with history of ESRD on HD, DM, hypertension, PVD s/p bilateral BKA presented from HD unit with worsening anemia and shortness of breath. 1. ESRD on HD 2. Acute on Chronic anemia (negative stool occult blood, + recent infection may have lead to ADRIAN resistance) 3. Shortness of breath secondary to fluid overload 4. Fluid overload offered extra session of UF today to improve volume status but pt refused to go to dialysis. WIll arrange for dialysis in AM tomorrow with aggressive UF Continue Nebs as pt has wheezing Fluid restriction of 1.2L, < 2g Na diet continue supplemental O2 Thank you Miguel Jansen DO
[2019-05-18] MEDS ORDERED: SODIUM CHLORIDE 250 ML IV PRN (16:23)
--- NOTE | 2019-05-18 19:22 | PN ---
Progress Note (short form) - Note Progress Note: Patient continues to be short of breath. on vm on and off Vital Signs Temperature 97.8 F 05/18/19 13:42 Pulse Rate 90 05/18/19 13:42 Respiratory Rate 20 05/18/19 13:42 Blood Pressure 161/91 05/18/19 13:42 O2 Sat by Pulse Oximetry (%) 96 05/18/19 09:00 GENERAL: The patient is awake, alert, and fully oriented, labored breathing. HEAD: Normal with no signs of trauma. EYES: PERRL, extraocular movements intact, sclera anicteric, conjunctiva clear. ENT: Ears normal, oropharynx clear without exudates, moist mucous membranes. NECK: Trachea midline, full range of motion, supple. LUNGS: decreased Breath sounds bl, positive for wheezing continues but improving slowly , positive for crackles, no accessory muscle use. HEART: Regular rate and rhythm, S1, S2 without murmur, rub or gallop. ABDOMEN: Soft, nontender, nondistended, normoactive bowel sounds, no guarding, no rebound, no hepatosplenomegaly, no masses. EXTREMITIES: 2+ pulses, warm, well-perfused, bl amputation left below knee, right above knee NEUROLOGICAL: Cranial nerves II through XII grossly intact. Normal speech, gait not observed. PSYCH: Normal mood, normal affect. SKIN: Warm, dry, normal turgor, no rashes or lesions noted . CBCD WBC 10.6 K/mm3 (4.0-10.0) H 05/16/19 14:45 RBC 2.70 M/mm3 (4.00-5.60) L 05/16/19 14:45 Hgb 7.7 GM/dL (11.7-16.9) L 05/16/19 14:45 Hct 24.1 % (35.4-49) L 05/16/19 14:45 MCV 89.1 fl (80-96) 05/16/19 14:45 MCHC 31.8 g/dl (32.0-35.9) L 05/16/19 14:45 RDW 17.4 % (11.9-15.9) H 05/16/19 14:45 Plt Count 303 K/MM3 (134-434) 05/16/19 14:45 MPV 7.3 fl (7.5-11.1) L 05/16/19 14:45 CMP Sodium 137 mmol/L (136-145) 05/16/19 14:45 Potassium 4.5 mmol/L (3.5-5.1) 05/16/19 14:45 Chloride 100 mmol/L (98-107) 05/16/19 14:45 Carbon Dioxide 32 mmol/L (21-32) 05/16/19 14:45 Anion Gap 5 MMOL/L (8-16) L 05/16/19 14:45 BUN 47.9 mg/dL (7-18) H 05/16/19 14:45 Creatinine 4.4 mg/dL (0.55-1.3) H 05/16/19 14:45 Random Glucose 279 mg/dL (74-106) H 05/16/19 14:45 Calcium 8.1 mg/dL (8.5-10.1) L 05/16/19 14:45 Total Bilirubin 0.6 mg/dL (0.2-1) 05/14/19 09:45 AST 9 U/L (15-37) L 05/14/19 09:45 ALT 21 U/L (13-61) 05/14/19 09:45 Alkaline Phosphatase 175 U/L (45-117) H 05/14/19 09:45 Total Protein 6.4 g/dl (6.4-8.2) 05/14/19 09:45 Albumin 2.4 g/dl (3.4-5.0) L 05/14/19 09:45 CARDIAC ENZYMES Creatine Kinase 84 U/L (26-308) 05/09/19 08:14 Troponin I < 0.02 ng/ml (0.00-0.05) 05/09/19 08:14 Current Medications Generic Name Dose Route Start Last Admin Trade Name Freq PRN Reason Stop Dose Admin Albuterol/Ipratropium 1 amp 05/15/19 12:00 05/18/19 16:00 Duoneb - NEB 1 amp RQID [facility] Administration Azithromycin 500 mg 05/16/19 13:00 05/18/19 10:43 Zithromax - PO 05/20/19 10:01 500 mg DAILY [facility] Administration Bacitracin 1 applic 05/12/19 11:15 05/18/19 10:44 Bacitracin - TP 1 applic BID [facility] Administration Doxazosin Mesylate 2 mg 05/09/19 22:00 05/17/19 22:33 Cardura - PO 2 mg HS [facility] Administration Epoetin Joe 20,000 unit 05/19/19 06:00 Procrit - IVPUSH 05/19/19 06:01 ONCE ONE Fluticasone Propionate 1 spray 05/09/19 10:00 05/18/19 10:44 Flonase - NS 1 spray DAILY [facility] Administration Gabapentin 300 mg 05/09/19 14:00 05/18/19 14:44 Neurontin - PO 300 mg TID [facility] Administration Heparin Sodium (Porcine) 5,000 unit 05/12/19 22:00 05/18/19 14:43 Heparin - SQ 5,000 unit TID [facility] Administration Sodium Chloride 250 mls @ 3,000 mls/hr 05/18/19 16:23 Normal Saline - IV 05/19/19 16:23 PRN PRN Hypotension during Dialysis Insulin Aspart 1 vial 05/11/19 14:51 05/18/19 17:00 Novolog Vial Sliding Scale - SQ Not Given TIDAC [facility] Protocol Insulin Detemir 3 units 05/17/19 20:00 05/18/19 12:14 Levemir Vial SQ 3 units Q12H [facility] Administration Lidocaine 1 patch 05/09/19 10:00 05/18/19 10:39 Lidoderm Patch - TP 1 patch DAILY [facility] Administration Losartan Potassium 25 mg 05/13/19 10:00 05/18/19 10:43 Cozaar - PO 25 mg DAILY [facility] Administration Methadone HCl 2.5 mg 05/16/19 23:00 05/18/19 14:44 Dolophine - PO 2.5 mg Q8H [facility] Administration Miscellaneous 1 each 05/09/19 22:00 05/17/19 21:23 Lidoderm Patch Removal MC 1 each DAILY@2200 [facility] Administration Multivit/Ca Carb/B Cmplx/FA/Prenat 1 tablet 05/09/19 10:00 05/18/19 10:43 Nephro-Guilherme - PO 1 tablet DAILY [facility] Administration Nifedipine 90 mg 05/13/19 10:00 05/18/19 10:45 Procardia Xl - PO 90 mg DAILY [facility] Administration Tiotropium [place] 2 puff 05/10/19 10:00 05/18/19 10:45 Spiriva Respimat IH Not Given DAILY [facility] Torsemide 80 mg 05/16/19 10:00 05/18/19 10:43 Demadex - PO 80 mg DAILY [facility] Administration Trazodone HCl 400 mg/ 450 mg 05/09/19 22:15 05/17/19 21:15 Trazodone HCl 50 mg PO 450 mg HS [facility] Administration Vitamin A/Vitamin D 1 applic 05/14/19 18:00 05/18/19 17:03 Vitamin A & D Top Oint - TP 1 applic Q6HPO [facility] Administration Home Medications Medication Instructions Recorded Fluticasone Prop 0.05% Nasal 1 - 2 spray NS DAILY #1 spray.pump 08/23/17 [Flonase -] Lidocaine 5% Patch [Lidoderm -] 1 patch TP DAILY patch 10/06/17 Lidocaine Patch Removal [Lidoderm 1 each MC DAILY@2200 each 10/06/17 Patch Removal] traZODone HCL [Desyrel -] 450 mg PO HS 04/07/19 Methadone [Dolophine -] 2.5 mg PO TID 04/16/19 Doxazosin Mesylate [Cardura -] 2 mg PO HS #30 tablet 04/20/19 Gabapentin [Neurontin -] 300 mg PO TID #90 capsule 04/20/19 Insulin Sliding Scale [Novolog 1 vial SQ TIDAC #1 vial 04/20/19 Vial Sliding Scale -] Nifedipine ER [Procardia XL -] 60 mg PO DAILY #30 tab.er.24 04/20/19 Vitamin B Comp W-C [Nephro-Guilherme -] 1 tablet PO DAILY #30 tablet 04/20/19 Insulin (Levemir) [Levemir Vial] 12 unit SQ HS 05/10/19 Doxazosin Mesylate 4 mg PO DAILY 05/11/19 Gabapentin 100 mg PO BID 05/11/19 Nifedipine ER [Procardia Xl -] 90 mg PO DAILY 05/11/19 05/09/19 10:14 Urine - Urine Clean Catch Urine Culture - Final Gram Negative [facility] CT for mediastinal lymphadenopathy Assessment and plan: patient is a 63 y/o man with h/o ESRD on HD (TTS), IDDM, HTN, PVD s/p L BKA, Diabetic neuropathy, MRSA bacteremia , 10/14, R IJ thrombus, 6/18 , R foot OM and necrotizing fasciitis , s/p R BKA 04/16, MSSA bacteremia , normocytic anemia ,who presented due to anemia. #Elio brown sputum started on zithromax as per ID, continue day #3 # Acute pulmonary edema with SOB continues ; continue HD as needed, getting HD as needed prn. persistent congestive changes. # Acute on chronic normocytic anemia: due ESRD # ESRD: HD per renal, nephro on the case. continue dialysis prn as per nephro. # DM: with hypoglycemia this am. continue with SS with coverage , SSI coverage and no HS coverage , sensitive to insulin # Hx HTN: cont nifedipine 90 mg (increased) , and cardura, losartan and monitor K. d/w renal #Chronic pain: cont methadone and lidocaine patch DVT Px: heparin sq continue dialysis continue zithromax will discuss with nephro Visit type - Emergency Visit Emergency Visit: Yes ED Registration Date: 05/09/19 Care time: The patient presented to the Emergency Department on the above date and was hospitalized for further evaluation of their emergent condition. - New Patient This patient is new to me today: No - Critical Care Critical Care patient: No - Discharge Referral Referred to [facility] No
[2019-05-18] MEDS ORDERED: traZODone HCL 100 MG TABLET (FP) ONE (22:39)
[2019-05-18] MEDS ORDERED: traZODone HCL 50 MG TABLET (FP) ONE (22:39)
[2019-05-18] MEDS: TRAZODONE HCL PO SCH (22:41)
[2019-05-18] MEDS: DOXAZOSIN MESYLATE 2 MG TABLET PO SCH (22:43)
[2019-05-18] MEDS: LIDOCAINE PATCH REMOVAL MC SCH (22:43)
[2019-05-19] MEDS: VITAMINS A AND D TOPICAL OINTMENT 60 GM TUBE TP SCH ×4 (00:45→17:14)
[2019-05-19] MEDS: HEPARIN NA (PORCINE) 5,000 UNITS/ML 1ML VIAL SQ SCH ×2 (06:40→14:00)
[2019-05-19] MEDS: METHADONE HCL 10 MG TABLET PO SCH ×2 (06:40→14:52)
[2019-05-19] MEDS: GABAPENTIN 300 MG CAPSULE PO SCH ×3 (06:40→22:03)
[2019-05-19] MEDS: INSULIN SLIDING SCALE (NOVOLOG) 1 VIAL SQ SCH ×3 (06:40→17:15)
[2019-05-19] MEDS: ALBUTEROL SO4 2.5/IPRATROPIUM 0.5 INH SOL 3 ML VIAL.NEB. NEB SCH ×4 (07:15→20:40)
[2019-05-19] MEDS: FLUTICASONE PROP 0.05% 16 GM NASAL SPRAY NS SCH (08:00)
[2019-05-19] MEDS: INSULIN (LEVEMIR) 100 UNITS/ML UNITS SQ SCH ×2 (08:30→20:48)
[2019-05-19] MEDS ORDERED: PT OWN MED DRAWER 7, Y5N ONE ×3 (08:47→22:15)
[2019-05-19] MEDS: TIOTROPIUM BROMIDE 2.5 MCG (SPIRIVA) RESPIMAT INHALER IH SCH (09:00)
[2019-05-19] MEDS ORDERED: EPOETIN ALFA 20,000 UNIT/1 ML VIAL IVPUSH ONE (09:30)
[2019-05-19 10:00] LABS: HEMATOCRIT 21.6 % (35.4-49); MCHC 32.5 g/dl (32.0-35.9); MEAN PLT VOLUME 7.2 fl (7.5-11.1); PLATELET COUNT 319 K/MM3 (134-434); RBC 2.42 M/mm3 (4.00-5.60); RDW 18.5 % (11.9-15.9); WHITE BLOOD COUNT 9.9 K/mm3 (4.0-10.0)
[2019-05-19] MEDS: BACITRACIN 15 GM TUBE TOPICAL OINTMENT TP SCH ×2 (10:00→22:04)
[2019-05-19] MEDS: LIDOCAINE 5% TOPICAL PATCH TP SCH (10:00)
[2019-05-19] MEDS: VITAMIN B COMP W-C 1 EA TABLET PO SCH (10:00)
[2019-05-19] MEDS: TORSEMIDE 20 MG TABLET (FP) PO SCH (10:00)
[2019-05-19] MEDS: LOSARTAN POTASSIUM 25 MG TABLET PO SCH (10:00)
[2019-05-19] MEDS: NIFEdipine E.R. 90 MG TABLET PO SCH (10:00)
[2019-05-19 10:28] LABS: BLOOD UREA NITROGEN 63.8 mg/dL (7-18); CALCIUM 7.7 mg/dL (8.5-10.1); CREATININE 5.1 mg/dL (0.55-1.3); PHOSPHOROUS 6.5 mg/dL (2.5-4.9); POTASSIUM 5.7 mmol/L (3.5-5.1)
--- NOTE | 2019-05-19 10:58 | PN ---
Progress Note (short form) - Note Progress Note: Seen in HD. SOB On 50% VM. Insists inhaling diesel fluid caused this issue. CXR: worsening pulmonary edema. Intake & Output 05/16/19 05/17/19 05/18/19 05/19/19 23:59 23:59 23:59 23:59 Intake Total 1440 1030 750 727 Output Total 4400 Balance -2960 1030 750 727 Weight 175 lb 172 lb 172 lb 4 oz 179 lb 3.2 oz Last Vital Signs Temp Pulse Resp BP Pulse Ox 98.3 F 83 18 160/88 96 05/19/19 09:10 05/19/19 10:45 05/19/19 10:45 05/19/19 10:45 05/18/19 09:00 Active Medications Albuterol/Ipratropium (Duoneb -) 1 amp NEB RQID [facility] Last Admin: 05/19/19 07:15 Dose: 1 amp Azithromycin (Zithromax -) 500 mg PO DAILY [facility] Stop: 05/20/19 10:01 Last Admin: 05/18/19 10:43 Dose: 500 mg Bacitracin (Bacitracin -) 1 applic TP BID [facility] Last Admin: 05/18/19 22:43 Dose: 1 applic Doxazosin Mesylate (Cardura -) 2 mg PO HS [facility] Last Admin: 05/18/19 22:43 Dose: 2 mg Fluticasone Propionate (Flonase -) 1 spray NS DAILY [facility] Last Admin: 05/18/19 10:44 Dose: 1 spray Gabapentin (Neurontin -) 300 mg PO TID [facility] Last Admin: 05/19/19 06:40 Dose: 300 mg Heparin Sodium (Porcine) (Heparin -) 5,000 unit SQ TID [facility] Last Admin: 05/19/19 06:40 Dose: 5,000 unit Sodium Chloride (Normal Saline -) 250 mls @ 3,000 mls/hr IV PRN PRN PRN Reason: Hypotension during Dialysis Stop: 05/19/19 16:23 Insulin Aspart (Novolog Vial Sliding Scale -) 1 vial SQ TIDAC [facility]; Protocol Last Admin: 05/19/19 06:40 Dose: Not Given Insulin Detemir (Levemir Vial) 3 units SQ Q12H [facility] Last Admin: 05/18/19 20:48 Dose: 3 units Lidocaine (Lidoderm Patch -) 1 patch TP DAILY [facility] Last Admin: 05/18/19 10:39 Dose: 1 patch Losartan Potassium (Cozaar -) 25 mg PO DAILY [facility] Last Admin: 05/18/19 10:43 Dose: 25 mg Methadone HCl (Dolophine -) 2.5 mg PO Q8H [facility] Last Admin: 05/19/19 06:40 Dose: 2.5 mg Miscellaneous (Lidoderm Patch Removal) 1 each MC DAILY@2200 [facility] Last Admin: 05/18/19 22:43 Dose: 1 each Multivit/Ca Carb/B Cmplx/FA/Prenat (Nephro-Guilherme -) 1 tablet PO DAILY [facility] Last Admin: 05/18/19 10:43 Dose: 1 tablet Nifedipine (Procardia Xl -) 90 mg PO DAILY [facility] Last Admin: 05/18/19 10:45 Dose: 90 mg Tiotropium [place] (Spiriva Respimat) 2 puff IH DAILY [facility] Last Admin: 05/18/19 10:45 Dose: Not Given Torsemide (Demadex -) 80 mg PO DAILY [facility] Last Admin: 05/18/19 10:43 Dose: 80 mg Trazodone HCl 400 mg/ (Trazodone HCl 50 mg) 450 mg PO HS [facility] Last Admin: 05/18/19 22:41 Dose: 450 mg Vitamin A/Vitamin D (Vitamin A & D Top Oint -) 1 applic TP Q6HPO [facility] Last Admin: 05/19/19 06:40 Dose: 1 applic Gen: Tachypneic at rest Heart: RRR Lung: Bilateral Rales and rhonchi Abd: soft, nontender Ext: (+) edema Laboratory Results - last 24 hr 05/18/19 05/18/19 05/19/19 11:14 16:56 05:53 WBC RBC Hgb Hct MCV MCH MCHC RDW Plt Count MPV Sodium Potassium Chloride Carbon Dioxide Anion Gap BUN Creatinine Est GFR (CKD-EPI)AfAm Est GFR (CKD-EPI)NonAf POC Glucometer 327 134 213 Random Glucose Calcium Phosphorus Blood Type Antibody Screen 05/19/19 05/19/19 05/19/19 09:15 09:15 09:15 WBC 9.9 RBC 2.42 L Hgb 7.0 L Hct 21.6 L MCV 89.0 MCH 29.0 MCHC 32.5 RDW 18.5 H Plt Count 319 MPV 7.2 L Sodium 136 Potassium 5.7 H Chloride 101 Carbon Dioxide 29 Anion Gap 6 L BUN 63.8 H Creatinine 5.1 H Est GFR (CKD-EPI)AfAm 12.89 Est GFR (CKD-EPI)NonAf 11.12 POC Glucometer Random Glucose 227 H Calcium 7.7 L Phosphorus 6.5 H Blood Type B POSITIVE Antibody Screen Negative A/P Volume Overload Acute on Chronic Diastolic Heart Failure Anemia s/p 4 unit PRBC transfusion r/o Transfusion Associated Circulatory Overload Acute Bronchitis ESRD on HD HTN DM Bilateral BKA h/o Osteomyelitis - continue azithromycin - HD per renal with ultrafiltration - O2 to keep Spo2 >90% - inhaled bronchodilators as needed - will need f/u CT chest in 6-8 weeks when euvolemic - DVT prophylaxis Dr Butt
--- NOTE | 2019-05-19 11:56 | PN ---
Progress Note, Physician History of Present Illness: stable no new issues being dialysed comfortable - Current Medication List Current Medications: Active Medications Albuterol/Ipratropium (Duoneb -) 1 amp NEB RQID [facility] Last Admin: 05/19/19 07:15 Dose: 1 amp Azithromycin (Zithromax -) 500 mg PO DAILY [facility] Stop: 05/20/19 10:01 Last Admin: 05/18/19 10:43 Dose: 500 mg Bacitracin (Bacitracin -) 1 applic TP BID [facility] Last Admin: 05/18/19 22:43 Dose: 1 applic Doxazosin Mesylate (Cardura -) 2 mg PO HS [facility] Last Admin: 05/18/19 22:43 Dose: 2 mg Fluticasone Propionate (Flonase -) 1 spray NS DAILY [facility] Last Admin: 05/18/19 10:44 Dose: 1 spray Gabapentin (Neurontin -) 300 mg PO TID [facility] Last Admin: 05/19/19 06:40 Dose: 300 mg Heparin Sodium (Porcine) (Heparin -) 5,000 unit SQ TID [facility] Last Admin: 05/19/19 06:40 Dose: 5,000 unit Sodium Chloride (Normal Saline -) 250 mls @ 3,000 mls/hr IV PRN PRN PRN Reason: Hypotension during Dialysis Stop: 05/19/19 16:23 Insulin Aspart (Novolog Vial Sliding Scale -) 1 vial SQ TIDAC [facility]; Protocol Last Admin: 05/19/19 06:40 Dose: Not Given Insulin Detemir (Levemir Vial) 3 units SQ Q12H [facility] Last Admin: 05/18/19 20:48 Dose: 3 units Lidocaine (Lidoderm Patch -) 1 patch TP DAILY [facility] Last Admin: 05/18/19 10:39 Dose: 1 patch Losartan Potassium (Cozaar -) 25 mg PO DAILY [facility] Last Admin: 05/18/19 10:43 Dose: 25 mg Methadone HCl (Dolophine -) 2.5 mg PO Q8H [facility] Last Admin: 05/19/19 06:40 Dose: 2.5 mg Miscellaneous (Lidoderm Patch Removal) 1 each MC DAILY@2200 [facility] Last Admin: 05/18/19 22:43 Dose: 1 each Multivit/Ca Carb/B Cmplx/FA/Prenat (Nephro-Guilherme -) 1 tablet PO DAILY [facility] Last Admin: 05/18/19 10:43 Dose: 1 tablet Nifedipine (Procardia Xl -) 90 mg PO DAILY [facility] Last Admin: 05/18/19 10:45 Dose: 90 mg Tiotropium [place] (Spiriva Respimat) 2 puff IH DAILY [facility] Last Admin: 05/18/19 10:45 Dose: Not Given Torsemide (Demadex -) 80 mg PO DAILY [facility] Last Admin: 05/18/19 10:43 Dose: 80 mg Trazodone HCl 400 mg/ (Trazodone HCl 50 mg) 450 mg PO HS [facility] Last Admin: 05/18/19 22:41 Dose: 450 mg Vitamin A/Vitamin D (Vitamin A & D Top Oint -) 1 applic TP Q6HPO [facility] Last Admin: 05/19/19 06:40 Dose: 1 applic - Objective Vital Signs: Vital Signs Temperature 98.3 F 05/19/19 09:10 Pulse Rate 83 05/19/19 10:45 Respiratory Rate 18 05/19/19 10:45 Blood Pressure 160/88 05/19/19 10:45 O2 Sat by Pulse Oximetry (%) 96 05/18/19 09:00 Constitutional: Yes: No Distress, Calm Respiratory: Yes: Regular, CTA Bilaterally Gastrointestinal: Yes: Normal Bowel Sounds, Soft Musculoskeletal: Yes: WNL Extremities: Yes: Other Neurological: Yes: Alert, Oriented Psychiatric: Yes: Alert, Oriented Labs: CBC, BMP 05/19/19 09:15 05/19/19 09:15 INR, PTT INR 1.38 (0.83-1.09) H 05/11/19 13:30 Assessment/Plan Volume Overload Acute on Chronic Diastolic Heart Failure Anemia s/p 4 unit PRBC transfusion r/o Transfusion Associated Circulatory Overload ESRD on HD HTN DM Bilateral BKA h/o Osteomyelitis bleeding per rectum plan continue current mgmt close watch dialysis rest as per the team
--- NOTE | 2019-05-19 14:03 | PN ---
Physical Exam: SUBJECTIVE: Patient seen and examined at bedside. Overnight there was a noted temp of 99.9f. This am he still reports SOB. He also reports cough productive of brown/red sputum, 1 teaspoon, in tissue yesterday. He denies fevers, CP, and chills. OBJECTIVE: Vital Signs Temp Pulse Resp BP Pulse Ox 98.3 F 81 18 166/92 96 05/19/19 09:10 05/19/19 13:11 05/19/19 13:11 05/19/19 13:11 05/18/19 09:00 GENERAL: AOx3, in no acute distress. Carbon-fiber prosthesis at bedside. HEAD: NCAT EYES: ROBERTH, EOMI, conjunctiva clear. ENT: Ears normal, nares patent, oropharynx clear without exudates. Moist mucous membranes. NECK: Normal range of motion, supple without lymphadenopathy, JVD, or masses. LUNGS: Crackles posterior RIGHT lung at baldo. LEFT lung clear. No wheezes, and no crackles. No accessory muscle use. HEART: RRR s1 s2 ABDOMEN: Soft, BS present in all 4 quadrants, non-distended, no JVD, MUSCULOSKELETAL: No bony deformities or tenderness. No CVA tenderness. UPPER EXTREMITIES: LEFT arm AV fistula. 2+ pulses, warm, well-perfused. No cyanosis. No clubbing. No peripheral edema. LOWER EXTREMITIES: BL BKA, some dryness BL and area of chaffing on LEFT nub. NEUROLOGICAL: RIGHT 5/5, LEFT 4/5 strength. Cranial nerves II-XII intact. Normal speech. Gait not appreciated. PSYCHIATRIC: Not very cooperative and argumentative. Good eye contact. Appropriate mood and affect. SKIN: Warm, dry, normal turgor, no rashes or lesions noted, normal capillary refill. Laboratory Results - last 24 hr 05/18/19 05/19/19 05/19/19 16:56 05:53 09:15 WBC RBC Hgb Hct MCV MCH MCHC RDW Plt Count MPV Sodium 136 Potassium 5.7 H Chloride 101 Carbon Dioxide 29 Anion Gap 6 L BUN 63.8 H Creatinine 5.1 H Est GFR (CKD-EPI)AfAm 12.89 Est GFR (CKD-EPI)NonAf 11.12 POC Glucometer 134 213 Random Glucose 227 H Calcium 7.7 L Phosphorus 6.5 H Blood Type Antibody Screen 05/19/19 05/19/19 09:15 09:15 WBC 9.9 RBC 2.42 L Hgb 7.0 L Hct 21.6 L MCV 89.0 MCH 29.0 MCHC 32.5 RDW 18.5 H Plt Count 319 MPV 7.2 L Sodium Potassium Chloride Carbon Dioxide Anion Gap BUN Creatinine Est GFR (CKD-EPI)AfAm Est GFR (CKD-EPI)NonAf POC Glucometer Random Glucose Calcium Phosphorus Blood Type B POSITIVE Antibody Screen Negative Active Medications Albuterol/Ipratropium (Duoneb -) 1 amp NEB RQID [facility] Last Admin: 05/19/19 11:20 Dose: Not Given Azithromycin (Zithromax -) 500 mg PO DAILY [facility] Stop: 05/20/19 10:01 Last Admin: 05/18/19 10:43 Dose: 500 mg Bacitracin (Bacitracin -) 1 applic TP BID [facility] Last Admin: 05/18/19 22:43 Dose: 1 applic Doxazosin Mesylate (Cardura -) 2 mg PO HS [facility] Last Admin: 05/18/19 22:43 Dose: 2 mg Fluticasone Propionate (Flonase -) 1 spray NS DAILY [facility] Last Admin: 05/18/19 10:44 Dose: 1 spray Gabapentin (Neurontin -) 300 mg PO TID [facility] Last Admin: 05/19/19 06:40 Dose: 300 mg Heparin Sodium (Porcine) (Heparin -) 5,000 unit SQ TID [facility] Last Admin: 05/19/19 06:40 Dose: 5,000 unit Sodium Chloride (Normal Saline -) 250 mls @ 3,000 mls/hr IV PRN PRN PRN Reason: Hypotension during Dialysis Stop: 05/19/19 16:23 Insulin Aspart (Novolog Vial Sliding Scale -) 1 vial SQ TIDAC [facility]; Protocol Last Admin: 05/19/19 06:40 Dose: Not Given Insulin Detemir (Levemir Vial) 3 units SQ Q12H [facility] Last Admin: 05/18/19 20:48 Dose: 3 units Lidocaine (Lidoderm Patch -) 1 patch TP DAILY [facility] Last Admin: 05/18/19 10:39 Dose: 1 patch Losartan Potassium (Cozaar -) 25 mg PO DAILY [facility] Last Admin: 05/18/19 10:43 Dose: 25 mg Methadone HCl (Dolophine -) 2.5 mg PO Q8H [facility] Last Admin: 05/19/19 06:40 Dose: 2.5 mg Miscellaneous (Lidoderm Patch Removal) 1 each MC DAILY@2200 [facility] Last Admin: 05/18/19 22:43 Dose: 1 each Multivit/Ca Carb/B Cmplx/FA/Prenat (Nephro-Guilherme -) 1 tablet PO DAILY [facility] Last Admin: 05/18/19 10:43 Dose: 1 tablet Nifedipine (Procardia Xl -) 90 mg PO DAILY [facility] Last Admin: 05/18/19 10:45 Dose: 90 mg Tiotropium [place] (Spiriva Respimat) 2 puff IH DAILY [facility] Last Admin: 05/18/19 10:45 Dose: Not Given Torsemide (Demadex -) 80 mg PO DAILY [facility] Last Admin: 05/18/19 10:43 Dose: 80 mg Trazodone HCl 400 mg/ (Trazodone HCl 50 mg) 450 mg PO HS [facility] Last Admin: 05/18/19 22:41 Dose: 450 mg Vitamin A/Vitamin D (Vitamin A & D Top Oint -) 1 applic TP Q6HPO [facility] Last Admin: 05/19/19 06:40 Dose: 1 applic ASSESSMENT/PLAN: 63 y/o male PMH HTN, insulin treated DM, ESRD (TTS), PVD s/p BL BKA (2018) and MRSA bacteremia brought in for anemia. Overnight chest CT suspicous of blood clot but not likely given final read. Now experiencing sudden onset SOB consistent with crackles on PE and HD with removal of 3kg. No fevers recorded. CXR this AM still with congestive changes. # Productive cough - CXR May 19: Progressive congestive/infiltrative changes, RIGHT pleural fluid and RIGHT base atelectasis - Improves with duonebs - Azithromycin 500 mg PO QD DAY 4 # SOB - Pulm already consulted: CT chest findings and clinical exam more consistent with volume overload, mediastinal lymphadenopathy and sabino hepatis can be seen with decompensated heart failure or volume overload/TACO - HD per renal with ultrafiltration, likely needs a lower dry weight - HD with continued aggressive UF; 3.5L removal - F/u am CXR # Lung/mediastinal mass - Lymphoma vs lung cancer - Pulmonary consult noted as above; more likely atelectasis - F/u heme/onc recommendation # Normocytic anemia - Repeat afternoon CBC demonstrates stable h/h - Most likely ACD however poss hemolysis given low Hb despite transfusion - LDH normal and haptoglobin pending - Heme/onc consulted: Severe ACD and iron studies s/o chronic disease; stool occult is negative # ESRD - Renal consulted: Dialysis tomorrow. - S/p PRBC transfusion, Hgb improved to > 8 today. Will check CBC today with HD. - 1.2L fluid restriction # Chronic pain - Methadone 2.5 mg PO TID - Lidocaine patch # DM - Hold home regimen - ISS ACHS with gentle modification/please see sliding scale instructions - Insulin Levemir lowered to 3 units with supper - Gabapentin 300 mg PO TID # HTN - Cont. curent home regimen: Nifedipine ER 90 mg PO QD (changed from 60 mg), doxazosin 2 mg PO HS, ADDED Losartan 25 mg PO QD # Possible PE, ruled out - Overnight read of, "subsegmental peripheral right lung pulmonary embolism, no saddle embolus, interstitial edema, some infiltrates likely infection and a possibility for malignancy in the lungs, because the left heart border had suspicions for small cell carcinoma with mediastinal lymphadenopathy and sabino hepatis. There is concern for Lymphoma with recommendation for CT A/P (non- emergent)." - Pt hemodynamically stable - D dimer 1,438 - Pt elected for PO anticoag with Zabrina after lengthy discussion (please see attending note) - Pulm consulted: Do not suspect PE at this time. CT chest findings and clinical exam more consistent with volume overload, mediastinal lymphadenopathy and sabino hepatis can be seen with decompensated heart failure or volume overload/TACO. Do not suspect lung mass, more likely atelectasis. Can d/c anticoagulation - US of LE to r/o DVT. - F/u CT in 6-8 weeks # E coli in urine - < 10k cfu - Pt asymptomatic # F/E/N - PO; 1.2L fluid restriction - Cont. to monitor - Low sodium, diabetic diet # DVT prophylaxis - Heparin SQ # Disposition - Med/surg Rivas Coon MD Visit type - Emergency Visit Emergency Visit: No - New Patient This patient is new to me today: No - Critical Care Critical Care patient: No ATTENDING PHYSICIAN STATEMENT I saw and evaluated the patient. I reviewed the resident's note and discussed the case with the resident. I agree with the resident's findings and plan as documented. SUBJECTIVE: OBJECTIVE: ASSESSMENT AND PLAN:
[2019-05-19] MEDS ORDERED: METHADONE HCL 5 MG TABLET PO SCH (14:41)
[2019-05-19] MEDS: AZITHROMYCIN 250 MG TABLET PO SCH (14:51)
[2019-05-19] MEDS: METHADONE HCL 5 MG TABLET PO SCH ×2 (15:00→22:03)
--- NOTE | 2019-05-19 15:06 | PN ---
Progress Note (short form) - Note Progress Note: Renal follow up for ESRD on HD Seen and examined at the bedside s/p dialysis this AM with 3.2L UF SOB is improved today but still has some symptoms no fever, chills, chest pain, N/V/D Vital Signs Temperature 97.8 F 05/19/19 14:57 Pulse Rate 95 H 05/19/19 14:57 Respiratory Rate 05/19/19 14:57 Blood Pressure 158/78 05/19/19 14:57 O2 Sat by Pulse Oximetry (%) 96 05/18/19 09:00 Intake & Output 05/16/19 05/17/19 05/18/19 05/19/19 23:59 23:59 23:59 23:59 Intake Total 1440 6266 505 3103 Output Total 4400 3700 Balance -2960 1030 750 -2673 Weight 79.379 kg 78.018 kg 78.131 kg 81.284 kg NAD RRR CTA soft NT/ND no LE edema. + bilateral BKA CBC, BMP 05/19/19 09:15 05/19/19 09:15 Current Medications Albuterol/Ipratropium (Duoneb -) 1 amp NEB RQID [facility] Last Admin: 05/19/19 11:20 Dose: Not Given Azithromycin (Zithromax -) 500 mg PO DAILY [facility] Stop: 05/20/19 10:01 Last Admin: 05/19/19 14:51 Dose: 500 mg Bacitracin (Bacitracin -) 1 applic TP BID [facility] Last Admin: 05/18/19 22:43 Dose: 1 applic Doxazosin Mesylate (Cardura -) 2 mg PO HS [facility] Last Admin: 05/18/19 22:43 Dose: 2 mg Fluticasone Propionate (Flonase -) 1 spray NS DAILY [facility] Last Admin: 05/18/19 10:44 Dose: 1 spray Gabapentin (Neurontin -) 300 mg PO TID [facility] Last Admin: 05/19/19 15:00 Dose: 300 mg Heparin Sodium (Porcine) (Heparin -) 5,000 unit SQ TID [facility] Last Admin: 05/19/19 06:40 Dose: 5,000 unit Sodium Chloride (Normal Saline -) 250 mls @ 3,000 mls/hr IV PRN PRN PRN Reason: Hypotension during Dialysis Stop: 05/19/19 16:23 Insulin Aspart (Novolog Vial Sliding Scale -) 1 vial SQ TIDAC [facility]; Protocol Last Admin: 05/19/19 06:40 Dose: Not Given Insulin Detemir (Levemir Vial) 3 units SQ Q12H [facility] Last Admin: 05/18/19 20:48 Dose: 3 units Lidocaine (Lidoderm Patch -) 1 patch TP DAILY [facility] Last Admin: 05/18/19 10:39 Dose: 1 patch Losartan Potassium (Cozaar -) 25 mg PO DAILY [facility] Last Admin: 05/18/19 10:43 Dose: 25 mg Methadone HCl (Dolophine -) 2.5 mg PO Q8H [facility] Last Admin: 05/19/19 15:00 Dose: 2.5 mg Miscellaneous (Lidoderm Patch Removal) 1 each MC DAILY@2200 [facility] Last Admin: 05/18/19 22:43 Dose: 1 each Multivit/Ca Carb/B Cmplx/FA/Prenat (Nephro-Guilherme -) 1 tablet PO DAILY [facility] Last Admin: 05/18/19 10:43 Dose: 1 tablet Nifedipine (Procardia Xl -) 90 mg PO DAILY [facility] Last Admin: 05/18/19 10:45 Dose: 90 mg Tiotropium [place] (Spiriva Respimat) 2 puff IH DAILY [facility] Last Admin: 05/18/19 10:45 Dose: Not Given Torsemide (Demadex -) 80 mg PO DAILY [facility] Last Admin: 05/18/19 10:43 Dose: 80 mg Trazodone HCl 400 mg/ (Trazodone HCl 50 mg) 450 mg PO HS [facility] Last Admin: 05/18/19 22:41 Dose: 450 mg Vitamin A/Vitamin D (Vitamin A & D Top Oint -) 1 applic TP Q6HPO [facility] Last Admin: 05/19/19 06:40 Dose: 1 applic 63 year old gentleman with history of ESRD on HD, DM, hypertension, PVD s/p bilateral BKA presented from HD unit with worsening anemia and shortness of breath. 1. ESRD on HD 2. Acute on Chronic anemia (negative stool occult blood, + recent infection may have lead to ADRIAN resistance) 3. Shortness of breath secondary to fluid overload 4. Fluid overload Tolerated dialysis well this am, will need additional UF tomorrow and pt is agreeable Trend K levels Fluid restriction of 1.2L, < 2g Na diet continue supplemental O2 trend BP with additional UF Epogen 08750 units given today if Hgb < 7 may require transfusion Thank you Miguel Jansen DO
[2019-05-19] MEDS ORDERED: SODIUM CHLORIDE 250 ML IV PRN (15:09)
[2019-05-19] MEDS ORDERED: INSULIN (NOVOLOG) ASPART 100 UNITS/ML 10ML VIAL ONE ×2 (17:09→20:45)
[2019-05-19] MEDS ORDERED: LOSARTAN POTASSIUM 25 MG TABLET PO SCH (17:35)
[2019-05-19] MEDS ORDERED: LOSARTAN POTASSIUM 25 MG TABLET PO ONE (17:36)
--- NOTE | 2019-05-19 19:42 | PN ---
Teaching Attending Note Name of Resident: Rivas Coon ATTENDING PHYSICIAN STATEMENT I saw and evaluated the patient. I reviewed the resident's note and discussed the case with the resident. I agree with the resident's findings and plan as documented. SUBJECTIVE: Patient in dialysis today, continues to feel short of breath. Vital Signs Temperature 98.0 F 05/19/19 19:34 Pulse Rate 86 05/19/19 19:34 Respiratory Rate 20 05/19/19 14:57 Blood Pressure 159/91 05/19/19 19:34 O2 Sat by Pulse Oximetry (%) 96 05/18/19 09:00 GENERAL: The patient is awake, alert, and fully oriented, labored breathing. HEAD: Normal with no signs of trauma. EYES: PERRL, extraocular movements intact, sclera anicteric, conjunctiva clear. ENT: Ears normal, oropharynx clear without exudates, moist mucous membranes. NECK: Trachea midline, full range of motion, supple. LUNGS: decreased Breath sounds bl, positive for wheezing continues but improving slowly , positive for crackles, no accessory muscle use. HEART: Regular rate and rhythm, S1, S2 without murmur, rub or gallop. ABDOMEN: Soft, nontender, nondistended, normoactive bowel sounds, no guarding, no rebound, no hepatosplenomegaly, no masses. EXTREMITIES: 2+ pulses, warm, well-perfused, bl amputation left below knee, right above knee NEUROLOGICAL: Cranial nerves II through XII grossly intact. Normal speech, gait not observed. PSYCH: Normal mood, normal affect. SKIN: Warm, dry, normal turgor, no rashes or lesions noted . CBCD WBC 10.6 K/mm3 (4.0-10.0) H 05/16/19 14:45 RBC 2.70 M/mm3 (4.00-5.60) L 05/16/19 14:45 Hgb 7.7 GM/dL (11.7-16.9) L 05/16/19 14:45 Hct 24.1 % (35.4-49) L 05/16/19 14:45 MCV 89.1 fl (80-96) 05/16/19 14:45 MCHC 31.8 g/dl (32.0-35.9) L 05/16/19 14:45 RDW 17.4 % (11.9-15.9) H 05/16/19 14:45 Plt Count 303 K/MM3 (134-434) 05/16/19 14:45 MPV 7.3 fl (7.5-11.1) L 05/16/19 14:45 CMP Sodium 137 mmol/L (136-145) 05/16/19 14:45 Potassium 4.5 mmol/L (3.5-5.1) 05/16/19 14:45 Chloride 100 mmol/L (98-107) 05/16/19 14:45 Carbon Dioxide 32 mmol/L (21-32) 05/16/19 14:45 Anion Gap 5 MMOL/L (8-16) L 05/16/19 14:45 BUN 47.9 mg/dL (7-18) H 05/16/19 14:45 Creatinine 4.4 mg/dL (0.55-1.3) H 05/16/19 14:45 Random Glucose 279 mg/dL (74-106) H 05/16/19 14:45 Calcium 8.1 mg/dL (8.5-10.1) L 05/16/19 14:45 Total Bilirubin 0.6 mg/dL (0.2-1) 05/14/19 09:45 AST 9 U/L (15-37) L 05/14/19 09:45 ALT 21 U/L (13-61) 05/14/19 09:45 Alkaline Phosphatase 175 U/L (45-117) H 05/14/19 09:45 Total Protein 6.4 g/dl (6.4-8.2) 05/14/19 09:45 Albumin 2.4 g/dl (3.4-5.0) L 05/14/19 09:45 CARDIAC ENZYMES Creatine Kinase 84 U/L (26-308) 05/09/19 08:14 Troponin I < 0.02 ng/ml (0.00-0.05) 05/09/19 08:14 Current Medications Generic Name Dose Route Start Last Admin Trade Name Freq PRN Reason Stop Dose Admin Albuterol/Ipratropium 1 amp 05/15/19 12:00 05/18/19 16:00 Duoneb - NEB 1 amp RQID IGGY Administration Azithromycin 500 mg 05/16/19 13:00 05/18/19 10:43 Zithromax - PO 05/20/19 10:01 500 mg DAILY IGGY Administration Bacitracin 1 applic 05/12/19 11:15 05/18/19 10:44 Bacitracin - TP 1 applic BID IGGY Administration Doxazosin Mesylate 2 mg 05/09/19 22:00 05/17/19 22:33 Cardura - PO 2 mg HS [facility] Administration Epoetin Joe 20,000 unit 05/19/19 06:00 Procrit - IVPUSH 05/19/19 06:01 ONCE ONE Fluticasone Propionate 1 spray 05/09/19 10:00 05/18/19 10:44 Flonase - NS 1 spray DAILY [facility] Administration Gabapentin 300 mg 05/09/19 14:00 05/18/19 14:44 Neurontin - PO 300 mg TID [facility] Administration Heparin Sodium (Porcine) 5,000 unit 05/12/19 22:00 05/18/19 14:43 Heparin - SQ 5,000 unit TID [facility] Administration Sodium Chloride 250 mls @ 3,000 mls/hr 05/18/19 16:23 Normal Saline - IV 05/19/19 16:23 PRN PRN Hypotension during Dialysis Insulin Aspart 1 vial 05/11/19 14:51 05/18/19 17:00 Novolog Vial Sliding Scale - SQ Not Given TIDAC [facility] Protocol Insulin Detemir 3 units 05/17/19 20:00 05/18/19 12:14 Levemir Vial SQ 3 units Q12H [facility] Administration Lidocaine 1 patch 05/09/19 10:00 05/18/19 10:39 Lidoderm Patch - TP 1 patch DAILY [facility] Administration Losartan Potassium 25 mg 05/13/19 10:00 05/18/19 10:43 Cozaar - PO 25 mg DAILY [facility] Administration Methadone HCl 2.5 mg 05/16/19 23:00 05/18/19 14:44 Dolophine - PO 2.5 mg Q8H [facility] Administration Miscellaneous 1 each 05/09/19 22:00 05/17/19 21:23 Lidoderm Patch Removal MC 1 each DAILY@2200 [facility] Administration Multivit/Ca Carb/B Cmplx/FA/Prenat 1 tablet 05/09/19 10:00 05/18/19 10:43 Nephro-Guilherme - PO 1 tablet DAILY [facility] Administration Nifedipine 90 mg 05/13/19 10:00 05/18/19 10:45 Procardia Xl - PO 90 mg DAILY [facility] Administration Tiotropium [place] 2 puff 05/10/19 10:00 05/18/19 10:45 Spiriva Respimat IH Not Given DAILY [facility] Torsemide 80 mg 05/16/19 10:00 05/18/19 10:43 Demadex - PO 80 mg DAILY [facility] Administration Trazodone HCl 400 mg/ 450 mg 05/09/19 22:15 05/17/19 21:15 Trazodone HCl 50 mg PO 450 mg HS [facility] Administration Vitamin A/Vitamin D 1 applic 05/14/19 18:00 05/18/19 17:03 Vitamin A & D Top Oint - TP 1 applic Q6HPO [facility] Administration Home Medications Medication Instructions Recorded Fluticasone Prop 0.05% Nasal 1 - 2 spray NS DAILY #1 spray.pump 08/23/17 [Flonase -] Lidocaine 5% Patch [Lidoderm -] 1 patch TP DAILY patch 10/06/17 Lidocaine Patch Removal [Lidoderm 1 each MC DAILY@2200 each 10/06/17 Patch Removal] traZODone HCL [Desyrel -] 450 mg PO HS 04/07/19 Methadone [Dolophine -] 2.5 mg PO TID 04/16/19 Doxazosin Mesylate [Cardura -] 2 mg PO HS #30 tablet 04/20/19 Gabapentin [Neurontin -] 300 mg PO TID #90 capsule 04/20/19 Insulin Sliding Scale [Novolog 1 vial SQ TIDAC #1 vial 04/20/19 Vial Sliding Scale -] Nifedipine ER [Procardia XL -] 60 mg PO DAILY #30 tab.er.24 04/20/19 Vitamin B Comp W-C [Nephro-Guilherme -] 1 tablet PO DAILY #30 tablet 04/20/19 Insulin (Levemir) [Levemir Vial] 12 unit SQ HS 05/10/19 Doxazosin Mesylate 4 mg PO DAILY 05/11/19 Gabapentin 100 mg PO BID 05/11/19 Nifedipine ER [Procardia Xl -] 90 mg PO DAILY 05/11/19 05/09/19 10:14 Urine - Urine Clean Catch Urine Culture - Final Gram Negative [place] CT for mediastinal lymphadenopathy Assessment and plan: patient is a 63 y/o man with h/o ESRD on HD (TTS), IDDM, HTN, PVD s/p L BKA, Diabetic neuropathy, MRSA bacteremia , 10/14, R IJ thrombus, 10/14 , R foot OM and necrotizing fasciitis , s/p R BKA 04/16, MSSA bacteremia , normocytic anemia ,who presented due to anemia. #Elio brown sputum started on zithromax as per ID, continue day #4 as per pulm. to give 5 doses. # Acute pulmonary edema with SOB continues ; continue HD as needed, getting HD as needed prn. persistent congestive changes. # Acute on chronic normocytic anemia: due ESRD on procrit continue # ESRD: HD per renal, nephro on the case. continue dialysis prn as per nephro. # DM: with hypoglycemia this am. continue with SS with coverage , SSI coverage and no HS coverage , sensitive to insulin # Hx HTN: cont nifedipine 90 mg (increased) , and cardura, losartan and monitor K. d/w renal #Chronic pain: cont methadone and lidocaine patch DVT Px: heparin sq continue dialysis continue zithromax one more day total of 5 doses discuss with nephro and pulmonary for the outcome since patient continues to be in an out of SOB.
[2019-05-19] MEDS ORDERED: traZODone HCL 50 MG TABLET (FP) ONE (21:56)
[2019-05-19] MEDS ORDERED: traZODone HCL 100 MG TABLET (FP) ONE (21:56)
[2019-05-19] MEDS: LIDOCAINE PATCH REMOVAL MC SCH (22:03)
[2019-05-19] MEDS: DOXAZOSIN MESYLATE 2 MG TABLET PO SCH (22:04)
[2019-05-19] MEDS: TRAZODONE HCL PO SCH (22:47)
[2019-05-20] MEDS: VITAMINS A AND D TOPICAL OINTMENT 60 GM TUBE TP SCH ×4 (00:15→19:21)
[2019-05-20] MEDS: GABAPENTIN 300 MG CAPSULE PO SCH ×3 (06:24→21:40)
[2019-05-20] MEDS: INSULIN SLIDING SCALE (NOVOLOG) 1 VIAL SQ SCH ×4 (06:24→20:29)
[2019-05-20] MEDS: METHADONE HCL 5 MG TABLET PO SCH ×3 (06:24→22:03)
[2019-05-20] MEDS: ALBUTEROL SO4 2.5/IPRATROPIUM 0.5 INH SOL 3 ML VIAL.NEB. NEB SCH (08:17)
--- NOTE | 2019-05-20 08:20 | PN ---
Progress Note (short form) - Note Progress Note: Feels better. S/P HD yesterday. Does not want to change VM to NC. No acute events overnight. Intake & Output 05/17/19 05/18/19 05/19/19 05/20/19 23:59 23:59 23:59 23:59 Intake Total 7094 295 0334 360 Output Total 3700 Balance 1030 750 -2253 360 Weight 172 lb 172 lb 4 oz 179 lb 3.2 oz 175 lb 7 oz Last Vital Signs Temp Pulse Resp BP Pulse Ox 97.7 F 86 18 139/72 96 05/20/19 04:55 05/20/19 04:55 05/20/19 04:55 05/20/19 04:55 05/18/19 09:00 Active Medications Albuterol/Ipratropium (Duoneb -) 1 amp NEB RQID [facility] Last Admin: 05/20/19 08:17 Dose: Not Given Azithromycin (Zithromax -) 500 mg PO DAILY [facility] Stop: 05/20/19 10:01 Last Admin: 05/19/19 14:51 Dose: 500 mg Bacitracin (Bacitracin -) 1 applic TP BID [facility] Last Admin: 05/19/19 22:04 Dose: 1 applic Doxazosin Mesylate (Cardura -) 2 mg PO HS [facility] Last Admin: 05/19/19 22:04 Dose: 2 mg Fluticasone Propionate (Flonase -) 1 spray NS DAILY [facility] Last Admin: 05/19/19 08:00 Dose: 1 spray Gabapentin (Neurontin -) 300 mg PO TID [facility] Last Admin: 05/20/19 06:24 Dose: 300 mg Sodium Chloride (Normal Saline -) 250 mls @ 3,000 mls/hr IV PRN PRN PRN Reason: Hypotension during Dialysis Stop: 05/20/19 15:09 Insulin Aspart (Novolog Vial Sliding Scale -) 1 vial SQ TIDAC [facility]; Protocol Last Admin: 05/20/19 06:24 Dose: Not Given Insulin Detemir (Levemir Vial) 3 units SQ Q12H [facility] Last Admin: 05/19/19 20:48 Dose: 3 units Lidocaine (Lidoderm Patch -) 1 patch TP DAILY [facility] Last Admin: 05/19/19 10:00 Dose: Not Given Losartan Potassium (Cozaar -) 50 mg PO DAILY [facility] Methadone HCl (Dolophine -) 2.5 mg PO Q8H [facility] Last Admin: 05/20/19 06:24 Dose: 2.5 mg Miscellaneous (Lidoderm Patch Removal) 1 each MC DAILY@2200 [facility] Last Admin: 05/19/19 22:03 Dose: 1 each Multivit/Ca Carb/B Cmplx/FA/Prenat (Nephro-Guilherme -) 1 tablet PO DAILY [facility] Last Admin: 05/19/19 10:00 Dose: Not Given Nifedipine (Procardia Xl -) 90 mg PO DAILY [facility] Last Admin: 05/19/19 10:00 Dose: Not Given Tiotropium [place] (Spiriva Respimat) 2 puff IH DAILY [facility] Last Admin: 05/19/19 09:00 Dose: 2 puff Torsemide (Demadex -) 80 mg PO DAILY [facility] Last Admin: 05/19/19 10:00 Dose: Not Given Trazodone HCl 400 mg/ (Trazodone HCl 50 mg) 450 mg PO HS [facility] Last Admin: 05/19/19 22:47 Dose: 450 mg Vitamin A/Vitamin D (Vitamin A & D Top Oint -) 1 applic TP Q6HPO [facility] Last Admin: 05/20/19 05:30 Dose: 1 applic Gen: NAD Heart: RRR Lung: Bilateral Rales and rhonchi Abd: soft, nontender Ext: (+) edema Laboratory Results - last 24 hr 05/19/19 05/19/19 05/19/19 09:15 09:15 09:15 WBC 9.9 RBC 2.42 L Hgb 7.0 L Hct 21.6 L MCV 89.0 MCH 29.0 MCHC 32.5 RDW 18.5 H Plt Count 319 MPV 7.2 L Sodium 136 Potassium 5.7 H Chloride 101 Carbon Dioxide 29 Anion Gap 6 L BUN 63.8 H Creatinine 5.1 H Est GFR (CKD-EPI)AfAm 12.89 Est GFR (CKD-EPI)NonAf 11.12 POC Glucometer Random Glucose 227 H Calcium 7.7 L Phosphorus 6.5 H Blood Type B POSITIVE Antibody Screen Negative 05/19/19 05/19/19 05/20/19 16:54 20:47 05:53 WBC RBC Hgb Hct MCV MCH MCHC RDW Plt Count MPV Sodium Potassium Chloride Carbon Dioxide Anion Gap BUN Creatinine Est GFR (CKD-EPI)AfAm Est GFR (CKD-EPI)NonAf POC Glucometer 335 284 180 Random Glucose Calcium Phosphorus Blood Type Antibody Screen A/P Volume Overload Acute on Chronic Diastolic Heart Failure Anemia s/p 4 unit PRBC transfusion r/o Transfusion Associated Circulatory Overload Acute Bronchitis ESRD on HD HTN DM Bilateral BKA h/o Osteomyelitis - Azithromycin - HD per renal with ultrafiltration per Renal - O2 to keep Spo2 >90% - inhaled bronchodilators as needed - will need f/u CT chest in 6-8 weeks when euvolemic - DVT prophylaxis Dr Butt
--- NOTE | 2019-05-20 10:45 | PN ---
Progress Note, Physician History of Present Illness: stable no new issues - Current Medication List Current Medications: Active Medications Albuterol/Ipratropium (Duoneb -) 1 amp NEB RQID [facility] Last Admin: 05/20/19 08:17 Dose: Not Given Bacitracin (Bacitracin -) 1 applic TP BID [facility] Last Admin: 05/19/19 22:04 Dose: 1 applic Doxazosin Mesylate (Cardura -) 2 mg PO HS [facility] Last Admin: 05/19/19 22:04 Dose: 2 mg Fluticasone Propionate (Flonase -) 1 spray NS DAILY [facility] Last Admin: 05/19/19 08:00 Dose: 1 spray Gabapentin (Neurontin -) 300 mg PO TID [facility] Last Admin: 05/20/19 06:24 Dose: 300 mg Sodium Chloride (Normal Saline -) 250 mls @ 3,000 mls/hr IV PRN PRN PRN Reason: Hypotension during Dialysis Stop: 05/20/19 15:09 Insulin Aspart (Novolog Vial Sliding Scale -) 1 vial SQ TIDAC [facility]; Protocol Last Admin: 05/20/19 06:24 Dose: Not Given Insulin Detemir (Levemir Vial) 3 units SQ Q12H [facility] Last Admin: 05/19/19 20:48 Dose: 3 units Lidocaine (Lidoderm Patch -) 1 patch TP DAILY [facility] Last Admin: 05/19/19 10:00 Dose: Not Given Losartan Potassium (Cozaar -) 50 mg PO DAILY [facility] Methadone HCl (Dolophine -) 2.5 mg PO Q8H [facility] Last Admin: 05/20/19 06:24 Dose: 2.5 mg Miscellaneous (Lidoderm Patch Removal) 1 each MC DAILY@2200 [facility] Last Admin: 05/19/19 22:03 Dose: 1 each Multivit/Ca Carb/B Cmplx/FA/Prenat (Nephro-Guilherme -) 1 tablet PO DAILY [facility] Last Admin: 05/19/19 10:00 Dose: Not Given Nifedipine (Procardia Xl -) 90 mg PO DAILY [facility] Last Admin: 05/19/19 10:00 Dose: Not Given Tiotropium [place] (Spiriva Respimat) 2 puff IH DAILY [facility] Last Admin: 05/19/19 09:00 Dose: 2 puff Torsemide (Demadex -) 80 mg PO DAILY [facility] Last Admin: 05/19/19 10:00 Dose: Not Given Trazodone HCl 400 mg/ (Trazodone HCl 50 mg) 450 mg PO HS [facility] Last Admin: 05/19/19 22:47 Dose: 450 mg Vitamin A/Vitamin D (Vitamin A & D Top Oint -) 1 applic TP Q6HPO [facility] Last Admin: 05/20/19 05:30 Dose: 1 applic - Objective Vital Signs: Vital Signs Temperature 97.9 F 05/20/19 10:25 Pulse Rate 80 05/20/19 10:30 Respiratory Rate 18 05/20/19 10:30 Blood Pressure 153/90 05/20/19 10:30 O2 Sat by Pulse Oximetry (%) 96 05/18/19 09:00 Constitutional: Yes: No Distress, Calm Cardiovascular: Yes: S1, S2 Respiratory: Yes: Regular, CTA Bilaterally Gastrointestinal: Yes: Normal Bowel Sounds, Soft Musculoskeletal: Yes: WNL Extremities: Yes: Other Neurological: Yes: Alert, Oriented Psychiatric: Yes: Alert, Oriented Labs: CBC, BMP 05/19/19 09:15 05/19/19 09:15 INR, PTT INR 1.38 (0.83-1.09) H 05/11/19 13:30 Assessment/Plan Volume Overload Acute on Chronic Diastolic Heart Failure Anemia s/p 4 unit PRBC transfusion r/o Transfusion Associated Circulatory Overload ESRD on HD HTN DM Bilateral BKA h/o Osteomyelitis bleeding per rectum plan continue current mgmt close watch dialysis rest as per the team
[2019-05-20 13:27] LABS: HEMATOCRIT 22.4 % (35.4-49); HEMOGLOBIN 7.3 GM/dL (11.7-16.9); MCH 29.3 pg (25.7-33.7); MCHC 32.7 g/dl (32.0-35.9); MEAN CELL VOLUME 89.6 fl (80-96); MEAN PLT VOLUME 7.7 fl (7.5-11.1); PLATELET COUNT 327 K/MM3 (134-434); RDW 20.1 % (11.9-15.9); WHITE BLOOD COUNT 8.7 K/mm3 (4.0-10.0)
[2019-05-20] MEDS: BACITRACIN 15 GM TUBE TOPICAL OINTMENT TP SCH ×2 (13:35→21:40)
[2019-05-20] MEDS: VITAMIN B COMP W-C 1 EA TABLET PO SCH (13:35)
[2019-05-20] MEDS: AZITHROMYCIN 250 MG TABLET PO SCH (13:35)
[2019-05-20] MEDS: TORSEMIDE 20 MG TABLET (FP) PO SCH (13:35)
[2019-05-20] MEDS: LOSARTAN POTASSIUM 50 MG TABLET (FP) PO SCH (13:36)
--- NOTE | 2019-05-20 13:36 | PN ---
Progress Note (short form) - Note Progress Note: Renal follow up for ESRD on HD Seen and examined during dialysis awake and alert feels better, sob is improving no chest pain, abd pain, fever or chills Acess with good flow, 2L removed Vital Signs Temperature 97.9 F 05/20/19 10:25 Pulse Rate 72 05/20/19 12:35 Respiratory Rate 18 05/20/19 12:35 Blood Pressure 157/98 05/20/19 12:35 O2 Sat by Pulse Oximetry (%) 96 05/18/19 09:00 Intake & Output 05/17/19 05/18/19 05/19/19 05/20/19 23:59 23:59 23:59 23:59 Intake Total 9749 831 5902 1210 Output Total 3700 2500 Balance 1030 750 -2253 -1290 Weight 78.018 kg 78.131 kg 81.284 kg 79.577 kg NAD RRR CTA soft NT/ND no LE edema. + bilateral BKA CBC, BMP 05/20/19 10:30 Current Medications Bacitracin (Bacitracin -) 1 applic TP BID [facility] Last Admin: 05/19/19 22:04 Dose: 1 applic Doxazosin Mesylate (Cardura -) 2 mg PO HS [facility] Last Admin: 05/19/19 22:04 Dose: 2 mg Fluticasone Propionate (Flonase -) 1 spray NS DAILY [facility] Last Admin: 05/19/19 08:00 Dose: 1 spray Gabapentin (Neurontin -) 300 mg PO TID [facility] Last Admin: 05/20/19 06:24 Dose: 300 mg Sodium Chloride (Normal Saline -) 250 mls @ 3,000 mls/hr IV PRN PRN PRN Reason: Hypotension during Dialysis Stop: 05/20/19 15:09 Insulin Aspart (Novolog Vial Sliding Scale -) 1 vial SQ TIDAC [facility]; Protocol Last Admin: 05/20/19 06:24 Dose: Not Given Insulin Detemir (Levemir Vial) 3 units SQ Q12H [facility] Last Admin: 05/19/19 20:48 Dose: 3 units Lidocaine (Lidoderm Patch -) 1 patch TP DAILY [facility] Last Admin: 05/19/19 10:00 Dose: Not Given Losartan Potassium (Cozaar -) 50 mg PO DAILY [facility] Methadone HCl (Dolophine -) 2.5 mg PO Q8H [facility] Last Admin: 05/20/19 06:24 Dose: 2.5 mg Miscellaneous (Lidoderm Patch Removal) 1 each MC DAILY@2200 [facility] Last Admin: 05/19/19 22:03 Dose: 1 each Multivit/Ca Carb/B Cmplx/FA/Prenat (Nephro-Guilherme -) 1 tablet PO DAILY [facility] Last Admin: 05/19/19 10:00 Dose: Not Given Nifedipine (Procardia Xl -) 90 mg PO DAILY [facility] Last Admin: 05/19/19 10:00 Dose: Not Given Tiotropium [place] (Spiriva Respimat) 2 puff IH DAILY [facility] Last Admin: 05/19/19 09:00 Dose: 2 puff Torsemide (Demadex -) 80 mg PO DAILY [facility] Last Admin: 05/19/19 10:00 Dose: Not Given Trazodone HCl 400 mg/ (Trazodone HCl 50 mg) 450 mg PO HS [facility] Last Admin: 05/19/19 22:47 Dose: 450 mg Vitamin A/Vitamin D (Vitamin A & D Top Oint -) 1 applic TP Q6HPO [facility] Last Admin: 05/20/19 05:30 Dose: 1 applic 63 year old gentleman with history of ESRD on HD, DM, hypertension, PVD s/p bilateral BKA presented from HD unit with worsening anemia and shortness of breath. 1. ESRD on HD 2. Acute on Chronic anemia (negative stool occult blood, + recent infection may have lead to ADRIAN resistance) 3. Shortness of breath secondary to fluid overload 4. Fluid overload Tolerating isolated UF this am, next dialysis planned for tomorrow. Fluid restriction of 1.2L, < 2g Na diet continue supplemental O2 trend BP with additional UF Will continue ADRIAN with HD, trend Hgb on dialysis days if Hgb < 7 may require transfusion Thank you Miguel Jansen DO
[2019-05-20] MEDS: LIDOCAINE 5% TOPICAL PATCH TP SCH (13:37)
[2019-05-20] MEDS: FLUTICASONE PROP 0.05% 16 GM NASAL SPRAY NS SCH (13:39)
[2019-05-20] MEDS: TIOTROPIUM BROMIDE 2.5 MCG (SPIRIVA) RESPIMAT INHALER IH SCH (13:41)
[2019-05-20] MEDS ORDERED: PT OWN MED DRAWER 7, Y5N ONE ×4 (13:59→21:38)
[2019-05-20 14:00] LABS: ALBUMIN 2.5 g/dl (3.4-5.0); BILIRUBIN,TOTAL 0.4 mg/dL (0.2-1); BLOOD UREA NITROGEN 40.6 mg/dL (7-18); CALCIUM 7.7 mg/dL (8.5-10.1); POTASSIUM 5.3 mmol/L (3.5-5.1); TOT PROT 6.6 g/dl (6.4-8.2)
[2019-05-20] MEDS: NIFEdipine E.R. 90 MG TABLET PO SCH (15:15)
[2019-05-20] MEDS: INSULIN (LEVEMIR) 100 UNITS/ML UNITS SQ SCH ×2 (17:24→20:56)
[2019-05-20] MEDS: ALBUTEROL SO4 2.5/IPRATROPIUM 0.5 INH SOL 3 ML VIAL.NEB. NEB PRN ×2 (17:40→21:20)
--- NOTE | 2019-05-20 17:55 | PN ---
Physical Exam: SUBJECTIVE: Patient seen and examined at bedside. Overnight there were no acute events. Today he states he is still SOB and prefers to use venturi mask though he is saturating well. OBJECTIVE: Vital Signs Temp Pulse Resp BP Pulse Ox 98.3 F 80 18 148/76 100 05/20/19 18:00 05/20/19 18:00 05/20/19 21:00 05/20/19 18:00 05/20/19 21:00 GENERAL: AOx3, in no acute distress. Carbon-fiber prosthesis at bedside. HEAD: NCAT EYES: ROBERTH, EOMI, conjunctiva clear. ENT: Ears normal, nares patent, oropharynx clear without exudates. Moist mucous membranes. NECK: Normal range of motion, supple without lymphadenopathy, JVD, or masses. LUNGS: Crackles posterior RIGHT lung at baldo. LEFT lung clear. No wheezes, and no crackles. No accessory muscle use. HEART: RRR s1 s2 ABDOMEN: Soft, BS present in all 4 quadrants, non-distended, no JVD, MUSCULOSKELETAL: No bony deformities or tenderness. No CVA tenderness. UPPER EXTREMITIES: LEFT arm AV fistula. 2+ pulses, warm, well-perfused. No cyanosis. No clubbing. No peripheral edema. LOWER EXTREMITIES: BL BKA, some dryness BL and area of chaffing on LEFT nub. NEUROLOGICAL: RIGHT 5/5, LEFT 4/5 strength. Cranial nerves II-XII intact. Normal speech. Gait not appreciated. PSYCHIATRIC: Not very cooperative and argumentative. Good eye contact. Appropriate mood and affect. SKIN: Warm, dry, normal turgor, no rashes or lesions noted, normal capillary refill. Laboratory Results - last 24 hr 05/19/19 05/20/19 05/20/19 20:47 05:53 10:30 WBC RBC Hgb Hct MCV MCH MCHC RDW Plt Count MPV Sodium 138 Potassium 5.3 H Chloride 100 Carbon Dioxide 29 Anion Gap 9 BUN 40.6 H Creatinine 4.0 H Est GFR (CKD-EPI)AfAm 17.29 Est GFR (CKD-EPI)NonAf 14.92 POC Glucometer 284 180 Random Glucose 324 H Calcium 7.7 L Total Bilirubin 0.4 AST 14 L ALT 24 Alkaline Phosphatase 182 H Total Protein 6.6 Albumin 2.5 L 05/20/19 05/20/19 05/20/19 10:30 13:41 17:02 WBC 8.7 RBC 2.50 L Hgb 7.3 L Hct 22.4 L MCV 89.6 MCH 29.3 MCHC 32.7 RDW 20.1 H Plt Count 327 MPV 7.7 Sodium Potassium Chloride Carbon Dioxide Anion Gap BUN Creatinine Est GFR (CKD-EPI)AfAm Est GFR (CKD-EPI)NonAf POC Glucometer 271 175 Random Glucose Calcium Total Bilirubin AST ALT Alkaline Phosphatase Total Protein Albumin Active Medications Albuterol/Ipratropium (Duoneb -) 1 amp NEB Q4H PRN PRN Reason: SHORTNESS OF BREATH Last Admin: 05/20/19 21:20 Dose: 1 amp Bacitracin (Bacitracin -) 1 applic TP BID [facility] Last Admin: 05/20/19 21:40 Dose: 1 applic Doxazosin Mesylate (Cardura -) 2 mg PO HS [facility] Last Admin: 05/20/19 21:40 Dose: 2 mg Fluticasone Propionate (Flonase -) 1 spray NS DAILY [facility] Last Admin: 05/20/19 13:39 Dose: 1 spray Gabapentin (Neurontin -) 300 mg PO TID [facility] Last Admin: 05/20/19 21:40 Dose: 300 mg Heparin Sodium (Porcine) (Heparin -) 5,000 unit SQ TID [facility] Last Admin: 05/20/19 21:40 Dose: 5,000 unit Sodium Chloride (Normal Saline -) 250 mls @ 3,000 mls/hr IV PRN PRN PRN Reason: Hypotension during Dialysis Stop: 05/20/19 15:09 Insulin Asp[facility] ([facility] -[facility] Last Admin: 05/20/19 20:29 Dose: Not Given Insulin Detemir (Levemir Vial) 3 units SQ Q12H [facility] Last Admin: 05/20/19 20:56 Dose: 3 units Lidocaine (Lidoderm Patch -) 1 patch TP DAILY [facility] Last Admin: 05/20/19 13:37 Dose: 1 patch Losartan Potassium (Cozaar -) 50 mg PO DAILY [facility] Last Admin: 05/20/19 13:36 Dose: 50 mg Methadone HCl (Dolophine -) 2.5 mg PO Q8H [facility] Last Admin: 05/20/19 22:03 Dose: 2.5 mg Miscellaneous (Lidoderm Patch Removal) 1 each MC DAILY@2200 [facility] Last Admin: 05/20/19 21:40 Dose: 1 each Multivit/Ca Carb/B Cmplx/FA/Prenat (Nephro-Guilherme -) 1 tablet PO DAILY [facility] Last Admin: 05/20/19 13:35 Dose: 1 tablet Nifedipine (Procardia Xl -) 90 mg PO DAILY [facility] Last Admin: 05/20/19 15:15 Dose: 90 mg Tiotropium [place] (Spiriva Respimat) 2 puff IH DAILY [facility] Last Admin: 05/20/19 13:41 Dose: 2 puff Torsemide (Demadex -) 80 mg PO DAILY [facility] Last Admin: 05/20/19 13:35 Dose: 80 mg Trazodone HCl 400 mg/ (Trazodone HCl 50 mg) 450 mg PO HS [facility] Last Admin: 05/20/19 21:40 Dose: 450 mg Vitamin A/Vitamin D (Vitamin A & D Top Oint -) 1 applic TP Q6HPO [facility] Last Admin: 05/20/19 19:21 Dose: 1 applic ASSESSMENT/PLAN: 63 y/o male PMH HTN, insulin treated DM, ESRD (TTS), PVD s/p BL BKA (2019) and MRSA bacteremia brought in for anemia. Overnight chest CT suspicous of blood clot but not likely given final read. Now experiencing sudden onset SOB consistent with crackles on PE and HD with removal of 3kg. No fevers recorded. CXR this AM still with congestive changes. HD today. # Acute on chronic normocytic anemia - Most likely 2/2 worsening anemia of chronic disease - Hb today 7.3 # SOB - Pulm edema - Cont. HD per nephrology - Torsemide 80 mg po qd added # HTN - Cont. curent home regimen: Nifedipine ER 90 mg PO QD (changed from 60 mg), doxazosin 2 mg PO HS, ADDED Losartan 25 mg PO QD, torsemide 80 mg po qd # F/E/N - PO; 1.2L fluid restriction - Cont. to monitor - Low sodium, diabetic diet # DVT prophylaxis - Heparin SQ # Disposition - Med/surg Rivas Coon MD Visit type - Emergency Visit Emergency Visit: No - New Patient This patient is new to me today: No - Critical Care Critical Care patient: No ATTENDING PHYSICIAN STATEMENT I saw and evaluated the patient. I reviewed the resident's note and discussed the case with the resident. I agree with the resident's findings and plan as documented. SUBJECTIVE: OBJECTIVE: ASSESSMENT AND PLAN:
--- NOTE | 2019-05-20 19:40 | PN ---
Teaching Attending Note Name of Resident: Rivas Coon ATTENDING PHYSICIAN STATEMENT I saw and evaluated the patient. I reviewed the resident's note and discussed the case with the resident. I agree with the resident's findings and plan as documented. SUBJECTIVE: No fever or chilsl. SOB is better . seen in HD OBJECTIVE: NAD, awake, alert. MMM Cv: RRR, 2/6 SM at LLSB Lungs: CTAB anteriorly. could not move due to HD cath Abd: soft, NT, nl BS Ext: could not visualize stumps Assessment/Plan: 63 y/o man with h/o ESRD on HD (TTS), IDDM, HTN, PVD s/p L BKA, Diabetic neuropathy, MRSA bacteremia , , R IJ thrombus, 10/14, R foot OM and necrotizing fasciitis , s/p R BKA 04/16, MSSA bacteremia , normocytic anemia , and other medical problems who presented due to anemia. 1- Acute on chronic normocytic anemia: suspect worsening anemia from chronic disease 2- SOB; due to pulm edema . 3- DM 4- HTN 5- Chronic pain 6- ESRD - cotn to monitor HB - HD today , and per renal; - co nt torsemide - cont losartan and nifedipine - cont levemir and SSI - add heparin sq
[2019-05-20] MEDS ORDERED: INSULIN (NOVOLOG) ASPART 100 UNITS/ML 10ML VIAL ONE (19:56)
[2019-05-20] MEDS ORDERED: traZODone HCL 50 MG TABLET (FP) ONE (21:37)
[2019-05-20] MEDS ORDERED: traZODone HCL 100 MG TABLET (FP) ONE (21:37)
[2019-05-20] MEDS: HEPARIN NA (PORCINE) 5,000 UNITS/ML 1ML VIAL SQ SCH (21:40)
[2019-05-20] MEDS: TRAZODONE HCL PO SCH (21:40)
[2019-05-20] MEDS: LIDOCAINE PATCH REMOVAL MC SCH (21:40)
[2019-05-20] MEDS: DOXAZOSIN MESYLATE 2 MG TABLET PO SCH (21:40)
[2019-05-21] MEDS: VITAMINS A AND D TOPICAL OINTMENT 60 GM TUBE TP SCH ×4 (00:05→17:40)
[2019-05-21] MEDS: HEPARIN NA (PORCINE) 5,000 UNITS/ML 1ML VIAL SQ SCH ×3 (06:33→21:13)
[2019-05-21] MEDS: METHADONE HCL 5 MG TABLET PO SCH ×3 (06:33→22:47)
[2019-05-21] MEDS: GABAPENTIN 300 MG CAPSULE PO SCH ×3 (06:33→21:13)
[2019-05-21] MEDS: INSULIN SLIDING SCALE (NOVOLOG) 1 VIAL SQ SCH ×3 (06:35→17:40)
[2019-05-21] MEDS: INSULIN (LEVEMIR) 100 UNITS/ML UNITS SQ SCH ×2 (08:53→20:58)
--- NOTE | 2019-05-21 10:05 | PN ---
Progress Note, Physician History of Present Illness: stable no new issues - Current Medication List Current Medications: Active Medications Albuterol/Ipratropium (Duoneb -) 1 amp NEB Q4H PRN PRN Reason: SHORTNESS OF BREATH Last Admin: 05/20/19 21:20 Dose: 1 amp Bacitracin (Bacitracin -) 1 applic TP BID [facility] Last Admin: 05/20/19 21:40 Dose: 1 applic Doxazosin Mesylate (Cardura -) 2 mg PO HS [facility] Last Admin: 05/20/19 21:40 Dose: 2 mg Fluticasone Propionate (Flonase -) 1 spray NS DAILY [facility] Last Admin: 05/20/19 13:39 Dose: 1 spray Gabapentin (Neurontin -) 300 mg PO TID [facility] Last Admin: 05/21/19 06:33 Dose: 300 mg Heparin Sodium (Porcine) (Heparin -) 5,000 unit SQ TID [facility] Last Admin: 05/21/19 06:33 Dose: 5,000 unit Sodium Chloride (Normal Saline -) 250 mls @ 3,000 mls/hr IV PRN PRN PRN Reason: Hypotension during Dialysis Stop: 05/20/19 15:09 Insulin Aspart (Novolog Vial Sliding Scale -) 1 vial SQ TIDAC [facility]; Protocol Last Admin: 05/21/19 06:35 Dose: Not Given Insulin Detemir (Levemir Vial) 3 units SQ Q12H [facility] Last Admin: 05/21/19 08:53 Dose: 3 units Lidocaine (Lidoderm Patch -) 1 patch TP DAILY [facility] Last Admin: 05/20/19 13:37 Dose: 1 patch Losartan Potassium (Cozaar -) 50 mg PO DAILY [facility] Last Admin: 05/20/19 13:36 Dose: 50 mg Methadone HCl (Dolophine -) 2.5 mg PO Q8H [facility] Last Admin: 05/21/19 06:33 Dose: 2.5 mg Miscellaneous (Lidoderm Patch Removal) 1 each MC DAILY@2200 [facility] Last Admin: 05/20/19 21:40 Dose: 1 each Multivit/Ca Carb/B Cmplx/FA/Prenat (Nephro-Guilherme -) 1 tablet PO DAILY [facility] Last Admin: 05/20/19 13:35 Dose: 1 tablet Nifedipine (Procardia Xl -) 90 mg PO DAILY [facility] Last Admin: 05/20/19 15:15 Dose: 90 mg Tiotropium [place] (Spiriva Respimat) 2 puff IH DAILY [facility] Last Admin: 05/20/19 13:41 Dose: 2 puff Torsemide (Demadex -) 80 mg PO DAILY [facility] Last Admin: 05/20/19 13:35 Dose: 80 mg Trazodone HCl 400 mg/ (Trazodone HCl 50 mg) 450 mg PO HS [facility] Last Admin: 05/20/19 21:40 Dose: 450 mg Vitamin A/Vitamin D (Vitamin A & D Top Oint -) 1 applic TP Q6HPO [facility] Last Admin: 05/21/19 06:34 Dose: 1 applic - Objective Vital Signs: Vital Signs Temperature 98.0 F 05/21/19 05:50 Pulse Rate 80 05/21/19 05:50 Respiratory Rate 20 05/21/19 05:50 Blood Pressure 145/79 05/21/19 05:50 O2 Sat by Pulse Oximetry (%) 100 05/20/19 21:00 Labs: CBC, BMP 05/20/19 10:30 05/20/19 10:30 INR, PTT INR 1.38 (0.83-1.09) H 05/11/19 13:30
--- NOTE | 2019-05-21 10:10 | PN ---
Progress Note (short form) - Note Progress Note: In HD. Remains on VM O2. Refuses to taper to NC O2. Breathing feels better. No acute events overnight. Intake & Output 05/18/19 05/19/19 05/20/19 05/21/19 23:59 23:59 23:59 23:59 Intake Total 750 1447 1510 720 Output Total 3700 2500 2500 Balance 668 -2253 -990 -7490 Weight 172 lb 4 oz 179 lb 3.2 oz 175 lb 7 oz 176 lb Last Vital Signs Temp Pulse Resp BP Pulse Ox 98.0 F 80 20 145/79 100 05/21/19 05:50 05/21/19 05:50 05/21/19 05:50 05/21/19 05:50 05/20/19 21:00 Active Medications Albuterol/Ipratropium (Duoneb -) 1 amp NEB Q4H PRN PRN Reason: SHORTNESS OF BREATH Last Admin: 05/20/19 21:20 Dose: 1 amp Bacitracin (Bacitracin -) 1 applic TP BID [facility] Last Admin: 05/20/19 21:40 Dose: 1 applic Doxazosin Mesylate (Cardura -) 2 mg PO HS [facility] Last Admin: 05/20/19 21:40 Dose: 2 mg Fluticasone Propionate (Flonase -) 1 spray NS DAILY [facility] Last Admin: 05/20/19 13:39 Dose: 1 spray Gabapentin (Neurontin -) 300 mg PO TID [facility] Last Admin: 05/21/19 06:33 Dose: 300 mg Heparin Sodium (Porcine) (Heparin -) 5,000 unit SQ TID [facility] Last Admin: 05/21/19 06:33 Dose: 5,000 unit Sodium Chloride (Normal Saline -) 250 mls @ 3,000 mls/hr IV PRN PRN PRN Reason: Hypotension during Dialysis Stop: 05/20/19 15:09 Insulin Aspart (Novolog Vial Sliding Scale -) 1 vial SQ TIDAC [facility]; Protocol Last Admin: 05/21/19 06:35 Dose: Not Given Insulin Detemir (Levemir Vial) 3 units SQ Q12H [facility] Last Admin: 05/21/19 08:53 Dose: 3 units Lidocaine (Lidoderm Patch -) 1 patch TP DAILY [facility] Last Admin: 05/20/19 13:37 Dose: 1 patch Losartan Potassium (Cozaar -) 50 mg PO DAILY [facility] Last Admin: 05/20/19 13:36 Dose: 50 mg Methadone HCl (Dolophine -) 2.5 mg PO Q8H [facility] Last Admin: 05/21/19 06:33 Dose: 2.5 mg Miscellaneous (Lidoderm Patch Removal) 1 each MC DAILY@2200 [facility] Last Admin: 05/20/19 21:40 Dose: 1 each Multivit/Ca Carb/B Cmplx/FA/Prenat (Nephro-Guilherme -) 1 tablet PO DAILY [facility] Last Admin: 05/20/19 13:35 Dose: 1 tablet Nifedipine (Procardia Xl -) 90 mg PO DAILY [facility] Last Admin: 05/20/19 15:15 Dose: 90 mg Tiotropium [place] (Spiriva Respimat) 2 puff IH DAILY [facility] Last Admin: 05/20/19 13:41 Dose: 2 puff Torsemide (Demadex -) 80 mg PO DAILY [facility] Last Admin: 05/20/19 13:35 Dose: 80 mg Trazodone HCl 400 mg/ (Trazodone HCl 50 mg) 450 mg PO HS [facility] Last Admin: 05/20/19 21:40 Dose: 450 mg Vitamin A/Vitamin D (Vitamin A & D Top Oint -) 1 applic TP Q6HPO [facility] Last Admin: 05/21/19 06:34 Dose: 1 applic Gen: NAD Heart: RRR Lung: Bilateral Rales and rhonchi Abd: soft, nontender Ext: (+) edema Laboratory Results - last 24 hr 05/20/19 05/20/19 05/20/19 10:30 10:30 13:41 WBC 8.7 RBC 2.50 L Hgb 7.3 L Hct 22.4 L MCV 89.6 MCH 29.3 MCHC 32.7 RDW 20.1 H Plt Count 327 MPV 7.7 Sodium 138 Potassium 5.3 H Chloride 100 Carbon Dioxide 29 Anion Gap 9 BUN 40.6 H Creatinine 4.0 H Est GFR (CKD-EPI)AfAm 17.29 Est GFR (CKD-EPI)NonAf 14.92 POC Glucometer 271 Random Glucose 324 H Calcium 7.7 L Total Bilirubin 0.4 AST 14 L ALT 24 Alkaline Phosphatase 182 H Total Protein 6.6 Albumin 2.5 L 05/20/19 05/21/19 17:02 05:55 WBC RBC Hgb Hct MCV MCH MCHC RDW Plt Count MPV Sodium Potassium Chloride Carbon Dioxide Anion Gap BUN Creatinine Est GFR (CKD-EPI)AfAm Est GFR (CKD-EPI)NonAf POC Glucometer 175 248 Random Glucose Calcium Total Bilirubin AST ALT Alkaline Phosphatase Total Protein Albumin A/P Volume Overload Acute on Chronic Diastolic Heart Failure Anemia s/p 4 unit PRBC transfusion r/o Transfusion Associated Circulatory Overload Acute Bronchitis ESRD on HD HTN DM Bilateral BKA h/o Osteomyelitis - Azithromycin - HD per renal with ultrafiltration per Renal - O2 to keep Spo2 >90% - inhaled bronchodilators as needed - will need f/u CT chest in 6-8 weeks when euvolemic - DVT prophylaxis Dr Butt
[2019-05-21 10:42] LABS: HEMATOCRIT 22.4 % (35.4-49); HEMOGLOBIN 7.3 GM/dL (11.7-16.9); MCH 28.9 pg (25.7-33.7); MCHC 32.4 g/dl (32.0-35.9); MEAN CELL VOLUME 89.1 fl (80-96); MEAN PLT VOLUME 7.7 fl (7.5-11.1); PLATELET COUNT 349 K/MM3 (134-434); RBC 2.52 M/mm3 (4.00-5.60); RDW 18.9 % (11.9-15.9); WHITE BLOOD COUNT 10.5 K/mm3 (4.0-10.0)
[2019-05-21] MEDS ORDERED: EPOETIN ALFA 20,000 UNIT/1 ML VIAL IVPUSH ONE (11:00)
[2019-05-21 11:25] LABS: ALBUMIN 2.7 g/dl (3.4-5.0); BILIRUBIN,TOTAL 0.6 mg/dL (0.2-1); BLOOD UREA NITROGEN 59.5 mg/dL (7-18); CALCIUM 8.1 mg/dL (8.5-10.1); CREATININE 5.2 mg/dL (0.55-1.3); POTASSIUM 5.7 mmol/L (3.5-5.1); TOT PROT 6.8 g/dl (6.4-8.2)
[2019-05-21] MEDS ORDERED: SODIUM CHLORIDE 250 ML IV PRN (13:28)
--- NOTE | 2019-05-21 13:28 | PN ---
Progress Note (short form) - Note Progress Note: Renal follow up for ESRD on HD Seen and examined during dialysis awake and alert BP stable, goal UF is 3.5L continues o have shortness of breth Vital Signs Temperature 97.9 F 05/20/19 10:25 Pulse Rate 72 05/20/19 12:35 Respiratory Rate 18 05/20/19 12:35 Blood Pressure 157/98 05/20/19 12:35 O2 Sat by Pulse Oximetry (%) 96 05/18/19 09:00 Intake & Output 05/17/19 05/18/19 05/19/19 05/20/19 23:59 23:59 23:59 23:59 Intake Total 6293 278 1452 1210 Output Total 3700 2500 Balance 1030 750 -2253 -1290 Weight 78.018 kg 78.131 kg 81.284 kg 79.577 kg NAD RRR + rales soft NT/ND no LE edema. + bilateral BKA CBC, BMP 05/21/19 10:00 05/21/19 10:00 Current Medications Albuterol/Ipratropium (Duoneb -) 1 amp NEB Q4H PRN PRN Reason: SHORTNESS OF BREATH Last Admin: 05/20/19 21:20 Dose: 1 amp Bacitracin (Bacitracin -) 1 applic TP BID [facility] Last Admin: 05/20/19 21:40 Dose: 1 applic Doxazosin Mesylate (Cardura -) 2 mg PO HS [facility] Last Admin: 05/20/19 21:40 Dose: 2 mg Fluticasone Propionate (Flonase -) 1 spray NS DAILY [facility] Last Admin: 05/20/19 13:39 Dose: 1 spray Gabapentin (Neurontin -) 300 mg PO TID [facility] Last Admin: 05/21/19 06:33 Dose: 300 mg Heparin Sodium (Porcine) (Heparin -) 5,000 unit SQ TID [facility] Last Admin: 05/21/19 06:33 Dose: 5,000 unit Insulin Aspart (Novolog Vial Sliding Scale -) 1 vial SQ TIDAC [facility]; Protocol Last Admin: 05/21/19 06:35 Dose: Not Given Insulin Detemir (Levemir Vial) 3 units SQ Q12H [facility] Last Admin: 05/21/19 08:53 Dose: 3 units Lidocaine (Lidoderm Patch -) 1 patch TP DAILY [facility] Last Admin: 05/20/19 13:37 Dose: 1 patch Losartan Potassium (Cozaar -) 50 mg PO DAILY [facility] Last Admin: 05/20/19 13:36 Dose: 50 mg Methadone HCl (Dolophine -) 2.5 mg PO Q8H [facility] Last Admin: 05/21/19 06:33 Dose: 2.5 mg Miscellaneous (Lidoderm Patch Removal) 1 each MC DAILY@2200 [facility] Last Admin: 05/20/19 21:40 Dose: 1 each Multivit/Ca Carb/B Cmplx/FA/Prenat (Nephro-Guilherme -) 1 tablet PO DAILY [facility] Last Admin: 05/20/19 13:35 Dose: 1 tablet Nifedipine (Procardia Xl -) 90 mg PO DAILY [facility] Last Admin: 05/20/19 15:15 Dose: 90 mg Tiotropium [place] (Spiriva Respimat) 2 puff IH DAILY [facility] Last Admin: 05/20/19 13:41 Dose: 2 puff Torsemide (Demadex -) 80 mg PO DAILY [facility] Last Admin: 05/20/19 13:35 Dose: 80 mg Trazodone HCl 400 mg/ (Trazodone HCl 50 mg) 450 mg PO HS [facility] Last Admin: 05/20/19 21:40 Dose: 450 mg Vitamin A/Vitamin D (Vitamin A & D Top Oint -) 1 applic TP Q6HPO [facility] Last Admin: 05/21/19 06:34 Dose: 1 applic 63 year old gentleman with history of ESRD on HD, DM, hypertension, PVD s/p bilateral BKA presented from HD unit with worsening anemia and shortness of breath. 1. ESRD on HD 2. Acute on Chronic anemia (negative stool occult blood, + recent infection may have lead to ADRIAN resistance) 3. Shortness of breath secondary to fluid overload 4. Fluid overload Tolerating dialysis with 3.5L planned UF. Will arrange additional isolated UF tomorrow. counseled regarding importance of fluid and salt restriction Fluid restriction of 1.2L, < 2g Na diet continue supplemental O2 trend BP with additional UF Will continue ADRIAN with HD, trend Hgb on dialysis days if Hgb < 7 may require transfusion Thank you Miguel Jansen DO
--- NOTE | 2019-05-21 13:35 | PN ---
Physical Exam: SUBJECTIVE: Patient seen and examined at bedside. Overnight there were no acute events; continues to use venti mask despite appropriate oxygention on room air. His SOB is improving. OBJECTIVE: Vital Signs Temp Pulse Resp BP Pulse Ox 97.3 F L 84 20 123/76 100 05/21/19 14:36 05/21/19 14:36 05/21/19 14:36 05/21/19 14:36 05/21/19 09:00 GENERAL: AOx3, in no acute distress. Carbon-fiber prosthesis at bedside. HEAD: NCAT EYES: ROBERTH, EOMI, conjunctiva clear. ENT: Ears normal, nares patent, oropharynx clear without exudates. Moist mucous membranes. NECK: Normal range of motion, supple without lymphadenopathy, JVD, or masses. LUNGS: Crackles posterior RIGHT lung at baldo. LEFT lung clear. No wheezes, and no crackles. No accessory muscle use. HEART: RRR s1 s2 ABDOMEN: Soft, BS present in all 4 quadrants, non-distended, no JVD, MUSCULOSKELETAL: No bony deformities or tenderness. No CVA tenderness. UPPER EXTREMITIES: LEFT arm AV fistula. 2+ pulses, warm, well-perfused. No cyanosis. No clubbing. No peripheral edema. LOWER EXTREMITIES: BL BKA, some dryness BL and area of chaffing on LEFT nub. NEUROLOGICAL: RIGHT 5/5, LEFT 4/5 strength. Cranial nerves II-XII intact. Normal speech. Gait not appreciated. PSYCHIATRIC: Not very cooperative and argumentative. Good eye contact. Appropriate mood and affect. SKIN: Warm, dry, normal turgor, no rashes or lesions noted, normal capillary refill. Laboratory Results - last 24 hr 05/20/19 05/20/19 05/20/19 10:30 13:41 17:02 WBC RBC Hgb Hct MCV MCH MCHC RDW Plt Count MPV Sodium 138 Potassium 5.3 H Chloride 100 Carbon Dioxide 29 Anion Gap 9 BUN 40.6 H Creatinine 4.0 H Est GFR (CKD-EPI)AfAm 17.29 Est GFR (CKD-EPI)NonAf 14.92 POC Glucometer 271 175 Random Glucose 324 H Calcium 7.7 L Total Bilirubin 0.4 AST 14 L ALT 24 Alkaline Phosphatase 182 H Total Protein 6.6 Albumin 2.5 L 05/21/19 05/21/19 05/21/19 05:55 10:00 10:00 WBC 10.5 H RBC 2.52 L Hgb 7.3 L Hct 22.4 L MCV 89.1 MCH 28.9 MCHC 32.4 RDW 18.9 H Plt Count 349 MPV 7.7 Sodium 137 Potassium 5.7 H Chloride 100 Carbon Dioxide 30 Anion Gap 8 BUN 59.5 H Creatinine 5.2 H Est GFR (CKD-EPI)AfAm 12.59 Est GFR (CKD-EPI)NonAf 10.87 POC Glucometer 248 Random Glucose 269 H Calcium 8.1 L Total Bilirubin 0.6 AST 11 L ALT 23 Alkaline Phosphatase 194 H Total Protein 6.8 Albumin 2.7 L Active Medications Albuterol/Ipratropium (Duoneb -) 1 amp NEB Q4H PRN PRN Reason: SHORTNESS OF BREATH Last Admin: 05/21/19 16:00 Dose: 1 amp Bacitracin (Bacitracin -) 1 applic TP BID [facility] Last Admin: 05/20/19 21:40 Dose: 1 applic Doxazosin Mesylate (Cardura -) 2 mg PO HS [facility] Last Admin: 05/20/19 21:40 Dose: 2 mg Fluticasone Propionate (Flonase -) 1 spray NS DAILY [facility] Last Admin: 05/20/19 13:39 Dose: 1 spray Gabapentin (Neurontin -) 300 mg PO TID [facility] Last Admin: 05/21/19 14:32 Dose: 300 mg Heparin Sodium (Porcine) (Heparin -) 5,000 unit SQ TID [facility] Last Admin: 05/21/19 14:32 Dose: 5,000 unit Sodium Chloride (Normal Saline -) 250 mls @ 3,000 mls/hr IV PRN PRN PRN Reason: Hypotension during Dialysis Stop: 05/22/19 13:28 Insulin Aspart (Novolog Vial Sliding Scale -) 1 vial SQ TIDAC [facility]; Protocol Last Admin: 05/21/19 06:35 Dose: Not Given Insulin Detemir (Levemir Vial) 3 units SQ Q12H [facility] Last Admin: 05/21/19 08:53 Dose: 3 units Lidocaine (Lidoderm Patch -) 1 patch TP DAILY [facility] Last Admin: 05/20/19 13:37 Dose: 1 patch Losartan Potassium (Cozaar -) 50 mg PO DAILY [facility] Last Admin: 05/20/19 13:36 Dose: 50 mg Methadone HCl (Dolophine -) 2.5 mg PO Q8H [facility] Last Admin: 05/21/19 14:32 Dose: 2.5 mg Miscellaneous (Lidoderm Patch Removal) 1 each MC DAILY@2200 [facility] Last Admin: 05/20/19 21:40 Dose: 1 each Multivit/Ca Carb/B Cmplx/FA/Prenat (Nephro-Guilherme -) 1 tablet PO DAILY [facility] Last Admin: 05/20/19 13:35 Dose: 1 tablet Nifedipine (Procardia Xl -) 90 mg PO DAILY [facility] Last Admin: 05/20/19 15:15 Dose: 90 mg Tiotropium [place] (Spiriva Respimat) 2 puff IH DAILY [facility] Last Admin: 05/20/19 13:41 Dose: 2 puff Torsemide (Demadex -) 80 mg PO DAILY [facility] Last Admin: 05/20/19 13:35 Dose: 80 mg Trazodone HCl 400 mg/ (Trazodone HCl 50 mg) 450 mg PO HS [facility] Last Admin: 05/20/19 21:40 Dose: 450 mg Vitamin A/Vitamin D (Vitamin A & D Top Oint -) 1 applic TP Q6HPO [facility] Last Admin: 05/21/19 14:32 Dose: 1 applic ASSESSMENT/PLAN: 63 y/o male PMH HTN, insulin treated DM, ESRD (TTS), PVD s/p BL BKA (2019) and MRSA bacteremia brought in for anemia. Overnight chest CT suspicous of blood clot but not likely given final read. Now experiencing sudden onset SOB consistent with crackles on PE and HD with removal of 3kg. No fevers recorded. CXR this AM still with congestive changes. HD today. # SOB - Pulm edema - Cont. HD per nephrology: 3.5L planned UF. Fluid restriction of 1.2L, < 2g Na diet. - Torsemide 80 mg po qd added # Acute on chronic normocytic anemia - Most likely 2/2 worsening anemia of chronic disease - Hb today 7.3, transfuse under 7 # HTN - Cont. curent home regimen: Nifedipine ER 90 mg PO QD (changed from 60 mg), doxazosin 2 mg PO HS, ADDED Losartan 50 mg PO QD, torsemide 80 mg po qd # F/E/N - PO; 1.2L fluid restriction - Cont. to monitor - Low sodium, diabetic diet # DVT prophylaxis - Heparin SQ # Disposition - Med/surg Rivas Coon MD Visit type - Emergency Visit Emergency Visit: No - New Patient This patient is new to me today: No - Critical Care Critical Care patient: No ATTENDING PHYSICIAN STATEMENT I saw and evaluated the patient. I reviewed the resident's note and discussed the case with the resident. I agree with the resident's findings and plan as documented. SUBJECTIVE: OBJECTIVE: ASSESSMENT AND PLAN:
[2019-05-21] MEDS: ALBUTEROL SO4 2.5/IPRATROPIUM 0.5 INH SOL 3 ML VIAL.NEB. NEB PRN ×2 (16:00→22:13)
[2019-05-21] MEDS ORDERED: INSULIN (NOVOLOG) ASPART 100 UNITS/ML 10ML VIAL ONE (17:22)
[2019-05-21] MEDS: FLUTICASONE PROP 0.05% 16 GM NASAL SPRAY NS SCH (17:39)
[2019-05-21] MEDS: NIFEdipine E.R. 90 MG TABLET PO SCH (17:39)
[2019-05-21] MEDS: LIDOCAINE 5% TOPICAL PATCH TP SCH (17:39)
[2019-05-21] MEDS: TIOTROPIUM BROMIDE 2.5 MCG (SPIRIVA) RESPIMAT INHALER IH SCH (17:39)
[2019-05-21] MEDS: VITAMIN B COMP W-C 1 EA TABLET PO SCH (17:39)
[2019-05-21] MEDS: TORSEMIDE 20 MG TABLET (FP) PO SCH (17:39)
[2019-05-21] MEDS: LOSARTAN POTASSIUM 50 MG TABLET (FP) PO SCH (17:39)
[2019-05-21] MEDS: BACITRACIN 15 GM TUBE TOPICAL OINTMENT TP SCH ×2 (17:39→21:13)
--- NOTE | 2019-05-21 17:52 | PN ---
Teaching Attending Note Name of Resident: Rivas Coon ATTENDING PHYSICIAN STATEMENT I saw and evaluated the patient. I reviewed the resident's note and discussed the case with the resident. I agree with the resident's findings and plan as documented. SUBJECTIVE: No fever or chills. No PEREZ. cont to feel SOB and requests venti mask despite nl Sat O2 on RA OBJECTIVE: NAD, awake, alert. MMM Cv: RRR, 2/6 SM at LLSB Lungs: b/l crackles Abd: soft, NT, nl BS Ext: R LE with BKA, with clean stump and no ulcers. refused exam of L LE ( BKA ) Assessment/Plan: 63 y/o man with h/o ESRD on HD (TTS), IDDM, HTN, PVD s/p L BKA, Diabetic neuropathy, MRSA bacteremia , , R IJ thrombus, 10/14, R foot OM and necrotizing fasciitis , s/p R BKA 04/16, MSSA bacteremia , normocytic anemia , and other medical problems who presented due to anemia. 1- Acute on chronic normocytic anemia: suspect worsening anemia from chronic disease. 2- SOB; due to pulm edema . 3- DM 4- HTN 5- Chronic pain 6- ESRD - cotn to monitor HB. No need for transfusion today - HD today , and tomorrow - cont torsemide - cont losartan and nifedipine - cont levemir and SSI - cont heparin sq - will d/w renal when he is to resume his routine HD schedule
[2019-05-21] MEDS ORDERED: traZODone HCL 100 MG TABLET (FP) ONE (20:48)
[2019-05-21] MEDS ORDERED: traZODone HCL 50 MG TABLET (FP) ONE (20:48)
[2019-05-21] MEDS: TRAZODONE HCL PO SCH (21:12)
[2019-05-21] MEDS: DOXAZOSIN MESYLATE 2 MG TABLET PO SCH (21:14)
[2019-05-21] MEDS: LIDOCAINE PATCH REMOVAL MC SCH (21:14)
[2019-05-22] MEDS: HEPARIN NA (PORCINE) 5,000 UNITS/ML 1ML VIAL SQ SCH ×3 (06:37→22:10)
[2019-05-22] MEDS: GABAPENTIN 300 MG CAPSULE PO SCH ×3 (06:37→22:06)
[2019-05-22] MEDS: METHADONE HCL 5 MG TABLET PO SCH ×3 (06:37→22:06)
[2019-05-22] MEDS: VITAMINS A AND D TOPICAL OINTMENT 60 GM TUBE TP SCH ×3 (06:38→17:14)
[2019-05-22] MEDS: INSULIN SLIDING SCALE (NOVOLOG) 1 VIAL SQ SCH ×3 (06:39→17:14)
[2019-05-22] MEDS: INSULIN (LEVEMIR) 100 UNITS/ML UNITS SQ SCH ×2 (08:25→22:05)
[2019-05-22] MEDS ORDERED: PT OWN MED DRAWER 7, Y5N ONE ×2 (09:13→22:06)
[2019-05-22] MEDS: LIDOCAINE 5% TOPICAL PATCH TP SCH (09:20)
[2019-05-22] MEDS: BACITRACIN 15 GM TUBE TOPICAL OINTMENT TP SCH ×2 (09:22→22:05)
[2019-05-22] MEDS: FLUTICASONE PROP 0.05% 16 GM NASAL SPRAY NS SCH (09:22)
[2019-05-22] MEDS: TIOTROPIUM BROMIDE 2.5 MCG (SPIRIVA) RESPIMAT INHALER IH SCH (09:22)
--- NOTE | 2019-05-22 11:20 | PN ---
Progress Note, Physician History of Present Illness: stable no new issues - Current Medication List Current Medications: Active Medications Albuterol/Ipratropium (Duoneb -) 1 amp NEB Q4H PRN PRN Reason: SHORTNESS OF BREATH Last Admin: 05/21/19 22:13 Dose: 1 amp Bacitracin (Bacitracin -) 1 applic TP BID [facility] Last Admin: 05/22/19 09:22 Dose: 1 applic Doxazosin Mesylate (Cardura -) 2 mg PO HS [facility] Last Admin: 05/21/19 21:14 Dose: 2 mg Fluticasone Propionate (Flonase -) 1 spray NS DAILY [facility] Last Admin: 05/22/19 09:22 Dose: 1 spray Gabapentin (Neurontin -) 300 mg PO TID [facility] Last Admin: 05/22/19 06:37 Dose: 300 mg Heparin Sodium (Porcine) (Heparin -) 5,000 unit SQ TID [facility] Last Admin: 05/22/19 06:37 Dose: 5,000 unit Sodium Chloride (Normal Saline -) 250 mls @ 3,000 mls/hr IV PRN PRN PRN Reason: Hypotension during Dialysis Stop: 05/22/19 13:28 Insulin Aspart (Novolog Vial Sliding Scale -) 1 vial SQ TIDAC [facility]; Protocol Last Admin: 05/22/19 06:39 Dose: Not Given Insulin Detemir (Levemir Vial) 3 units SQ Q12H [facility] Last Admin: 05/22/19 08:25 Dose: 3 units Lidocaine (Lidoderm Patch -) 1 patch TP DAILY [facility] Last Admin: 05/22/19 09:20 Dose: 1 patch Losartan Potassium (Cozaar -) 50 mg PO DAILY [facility] Last Admin: 05/21/19 17:39 Dose: Not Given Methadone HCl (Dolophine -) 2.5 mg PO Q8H [facility] Last Admin: 05/22/19 06:37 Dose: 2.5 mg Miscellaneous (Lidoderm Patch Removal) 1 each MC DAILY@2200 [facility] Last Admin: 05/21/19 21:14 Dose: 1 each Multivit/Ca Carb/B Cmplx/FA/Prenat (Nephro-Guilherme -) 1 tablet PO DAILY [facility] Last Admin: 05/21/19 17:39 Dose: Not Given Nifedipine (Procardia Xl -) 90 mg PO DAILY [facility] Last Admin: 05/21/19 17:39 Dose: Not Given Tiotropium [place] (Spiriva Respimat) 2 puff IH DAILY [facility] Last Admin: 05/22/19 09:22 Dose: 2 puff Torsemide (Demadex -) 80 mg PO DAILY [facility] Last Admin: 05/21/19 17:39 Dose: Not Given Trazodone HCl 400 mg/ (Trazodone HCl 50 mg) 450 mg PO HS [facility] Last Admin: 05/21/19 21:12 Dose: 450 mg Vitamin A/Vitamin D (Vitamin A & D Top Oint -) 1 applic TP Q6HPO [facility] Last Admin: 05/22/19 06:38 Dose: Not Given - Objective Vital Signs: Vital Signs Temperature 98.4 F 05/22/19 09:00 Pulse Rate 80 05/22/19 10:40 Respiratory Rate 18 05/22/19 10:40 Blood Pressure 150/98 05/22/19 10:40 O2 Sat by Pulse Oximetry (%) 95 05/22/19 09:00 Constitutional: Yes: No Distress, Calm Cardiovascular: Yes: S1, S2 Respiratory: Yes: Regular, CTA Bilaterally Gastrointestinal: Yes: Normal Bowel Sounds, Soft Musculoskeletal: Yes: WNL Extremities: Yes: Other Neurological: Yes: Alert, Oriented Psychiatric: Yes: Alert, Oriented Labs: CBC, BMP 05/21/19 10:00 05/21/19 10:00 INR, PTT INR 1.38 (0.83-1.09) H 05/11/19 13:30 Assessment/Plan Volume Overload Acute on Chronic Diastolic Heart Failure Anemia s/p 4 unit PRBC transfusion r/o Transfusion Associated Circulatory Overload ESRD on HD HTN DM Bilateral BKA h/o Osteomyelitis bleeding per rectum plan continue current mgmt close watch dialysis rest as per the team
[2019-05-22 12:06] VITALS: BMI 21.4
[2019-05-22] MEDS: TORSEMIDE 20 MG TABLET (FP) PO SCH (12:46)
[2019-05-22] MEDS: VITAMIN B COMP W-C 1 EA TABLET PO SCH (12:46)
[2019-05-22] MEDS: LOSARTAN POTASSIUM 50 MG TABLET (FP) PO SCH (12:46)
--- NOTE | 2019-05-22 13:17 | PN ---
Progress Note (short form) - Note Progress Note: Renal follow up for ESRD on HD Seen and examined during dialysis awake and alert tolerated 2.5L UF still had significant shortness of breath last night no chest pain no cough no fevers Vital Signs Temperature 98.4 F 05/22/19 09:00 Pulse Rate 80 05/22/19 12:03 Respiratory Rate 18 05/22/19 12:03 Blood Pressure 162/98 05/22/19 12:03 O2 Sat by Pulse Oximetry (%) 95 05/22/19 09:00 Intake & Output 05/19/19 05/20/19 05/21/19 05/22/19 23:59 23:59 23:59 23:59 Intake Total 1447 1510 2437 500 Output Total 3700 2500 6400 2800 Balance -2253 -990 -3963 -2300 Weight 81.284 kg 79.577 kg 79.832 kg 80.031 kg NAD RRR + rales soft NT/ND no LE edema. + bilateral BKA CBC, BMP 05/21/19 10:00 05/21/19 10:00 Current Medications Albuterol/Ipratropium (Duoneb -) 1 amp NEB Q4H PRN PRN Reason: SHORTNESS OF BREATH Last Admin: 05/21/19 22:13 Dose: 1 amp Bacitracin (Bacitracin -) 1 applic TP BID [facility] Last Admin: 05/22/19 09:22 Dose: 1 applic Doxazosin Mesylate (Cardura -) 2 mg PO HS [facility] Last Admin: 05/21/19 21:14 Dose: 2 mg Fluticasone Propionate (Flonase -) 1 spray NS DAILY [facility] Last Admin: 05/22/19 09:22 Dose: 1 spray Gabapentin (Neurontin -) 300 mg PO TID [facility] Last Admin: 05/22/19 06:37 Dose: 300 mg Heparin Sodium (Porcine) (Heparin -) 5,000 unit SQ TID [facility] Last Admin: 05/22/19 06:37 Dose: 5,000 unit Sodium Chloride (Normal Saline -) 250 mls @ 3,000 mls/hr IV PRN PRN PRN Reason: Hypotension during Dialysis Stop: 05/22/19 13:28 Insulin Aspart (Novolog Vial Sliding Scale -) 1 vial SQ TIDAC [facility]; Protocol Last Admin: 05/22/19 06:39 Dose: Not Given Insulin Detemir (Levemir Vial) 3 units SQ Q12H [facility] Last Admin: 05/22/19 08:25 Dose: 3 units Lidocaine (Lidoderm Patch -) 1 patch TP DAILY [facility] Last Admin: 05/22/19 09:20 Dose: 1 patch Losartan Potassium (Cozaar -) 50 mg PO DAILY [facility] Last Admin: 05/22/19 12:46 Dose: 50 mg Methadone HCl (Dolophine -) 2.5 mg PO Q8H [facility] Last Admin: 05/22/19 06:37 Dose: 2.5 mg Miscellaneous (Lidoderm Patch Removal) 1 each MC DAILY@2200 [facility] Last Admin: 05/21/19 21:14 Dose: 1 each Multivit/Ca Carb/B Cmplx/FA/Prenat (Nephro-Guilherme -) 1 tablet PO DAILY [facility] Last Admin: 05/22/19 12:46 Dose: 1 tablet Nifedipine (Procardia Xl -) 90 mg PO DAILY [facility] Last Admin: 05/21/19 17:39 Dose: Not Given Tiotropium [place] (Spiriva Respimat) 2 puff IH DAILY [facility] Last Admin: 05/22/19 09:22 Dose: 2 puff Torsemide (Demadex -) 80 mg PO DAILY [facility] Last Admin: 05/22/19 12:46 Dose: 80 mg Trazodone HCl 400 mg/ (Trazodone HCl 50 mg) 450 mg PO HS [facility] Last Admin: 05/21/19 21:12 Dose: 450 mg Vitamin A/Vitamin D (Vitamin A & D Top Oint -) 1 applic TP Q6HPO [facility] Last Admin: 05/22/19 06:38 Dose: Not Given 63 year old gentleman with history of ESRD on HD, DM, hypertension, PVD s/p bilateral BKA presented from HD unit with worsening anemia and shortness of breath. 1. ESRD on HD 2. Acute on Chronic anemia (negative stool occult blood, + recent infection may have lead to ADRIAN resistance) 3. Shortness of breath secondary to fluid overload 4. Fluid overload Tolerating isolated UF today with goal of 2.5L pt continues to have persistent shortness of breath despite very aggressive fluid removal all week will discuss if there is another process to consider with pulmonary planned for dialysis tomorrow with large volume UF as well fluid and salt restriction advised will continue to give hgih dose ADRIAN with HD, transfuse if Hgb < 7 Thank you Miguel Jansen DO
[2019-05-22] MEDS ORDERED: SODIUM CHLORIDE 250 ML IV PRN (13:20)
--- NOTE | 2019-05-22 14:01 | PN ---
Progress Note (short form) - Note Progress Note: PULMONARY Resting comfortably in bed wears v/m mask o2 o2 sats ranging from 95-100 % vss/afebrile Gen: less tachypneic at rest Heart: RRR Lung: scattered rhonchi Abd: soft, nontender Ext: bilateral BKA Chart/labs/meds/notes/images reviewed A/P Dyspnea is multifactorial: Volume overload/Acute on Chronic Diastolic Heart Failure/Anemia s/p 4 unit PRBC transfusion ESRD on HD HTN DM Bilateral BKA h/o Osteomyelitis - HD per renal with ultrafiltration - O2 to keep Spo2 >90% - inhaled bronchodilators as needed - DVT prophylaxis - Low index of suspicion for PE Mariama Lema MD
--- NOTE | 2019-05-22 14:29 | PN ---
Physical Exam: SUBJECTIVE: Patient seen and examined at bedside. Overnight there were no new events. This AM he feels less SOB. OBJECTIVE: Vital Signs Period Temp Pulse Resp BP Sys/Gutierrez Pulse Ox Last 24 Hr 97.3 F-98.4 F 79-84 18-20 123-164/76-100 95-99 GENERAL: AOx3, in no acute distress. Carbon-fiber prosthesis at bedside. HEAD: NCAT EYES: ROBERTH, EOMI, conjunctiva clear. ENT: Ears normal, nares patent, oropharynx clear without exudates. Moist mucous membranes. NECK: Normal range of motion, supple without lymphadenopathy, JVD, or masses. LUNGS: Bibasalar crackles. No wheezes, and no crackles. No accessory muscle use. HEART: RRR s1 s2 ABDOMEN: Soft, BS present in all 4 quadrants, non-distended, no JVD, MUSCULOSKELETAL: No bony deformities or tenderness. No CVA tenderness. UPPER EXTREMITIES: LEFT arm AV fistula. 2+ pulses, warm, well-perfused. No cyanosis. No clubbing. No peripheral edema. LOWER EXTREMITIES: BL BKA, some dryness BL and area of chaffing on LEFT nub. NEUROLOGICAL: RIGHT 5/5, LEFT 4/5 strength. Cranial nerves II-XII intact. Normal speech. Gait not appreciated. PSYCHIATRIC: Not very cooperative and argumentative. Good eye contact. Appropriate mood and affect. SKIN: Warm, dry, normal turgor, no rashes or lesions noted, normal capillary refill. Laboratory Results - last 24 hr 05/21/19 05/21/19 05/22/19 16:37 20:56 05:50 POC Glucometer 292 117 152 05/22/19 12:50 POC Glucometer 177 Active Medications Albuterol/Ipratropium (Duoneb -) 1 amp NEB Q4H PRN PRN Reason: SHORTNESS OF BREATH Last Admin: 05/22/19 22:28 Dose: 1 amp Bacitracin (Bacitracin -) 1 applic TP BID [facility] Last Admin: 05/22/19 22:05 Dose: 1 applic Doxazosin Mesylate (Cardura -) 2 mg PO HS IGGY Last Admin: 05/22/19 22:06 Dose: 2 mg Fluticasone Propionate (Flonase -) 1 spray NS DAILY [facility] Last Admin: 01/24/20 09:22 Dose: 1 spray Gabapentin (Neurontin -) 300 mg PO TID [facility] Last Admin: 05/23/19 06:06 Dose: 300 mg Heparin Sodium (Porcine) (Heparin -) 5,000 unit SQ TID [facility] Last Admin: 05/23/19 06:02 Dose: Not Given Hydralazine HCl (Apresoline -) 50 mg PO BID [facility] Insulin Aspart (Novolog Vial Sliding Scale -) 1 vial SQ TIDAC [facility]; Protocol Last Admin: 05/23/19 06:02 Dose: Not Given Insulin Detemir (Levemir Vial) 3 units SQ Q12H [facility] Last Admin: 05/23/19 08:34 Dose: 3 units Lidocaine (Lidoderm Patch -) 1 patch TP DAILY [facility] Last Admin: 05/22/19 09:20 Dose: 1 patch Methadone HCl (Dolophine -) 2.5 mg PO Q8H [facility] Last Admin: 05/23/19 06:06 Dose: 2.5 mg Miscellaneous (Lidoderm Patch Removal) 1 each MC DAILY@2200 [facility] Last Admin: 05/22/19 22:10 Dose: 1 each Multivit/Ca Carb/B Cmplx/FA/Prenat (Nephro-Guilherme -) 1 tablet PO DAILY [facility] Last Admin: 05/22/19 12:46 Dose: 1 tablet Nifedipine (Procardia Xl -) 90 mg PO DAILY [facility] Last Admin: 05/22/19 15:00 Dose: Not Given Tiotropium [place] (Spiriva Respimat) 2 puff IH DAILY [facility] Last Admin: 05/22/19 09:22 Dose: 2 puff Torsemide (Demadex -) 80 mg PO DAILY [facility] Last Admin: 05/22/19 12:46 Dose: 80 mg Trazodone HCl 400 mg/ (Trazodone HCl 50 mg) 450 mg PO HS [facility] Last Admin: 05/22/19 22:06 Dose: 450 mg Vitamin A/Vitamin D (Vitamin A & D Top Oint -) 1 applic TP Q6HPO [facility] Last Admin: 05/23/19 00:46 Dose: 1 applic ASSESSMENT/PLAN: 63 y/o male PMH HTN, insulin treated DM, ESRD (TTS), PVD s/p BL BKA (2019) and MRSA bacteremia brought in for anemia. SOB active problem now: HD with removal of 3kg give dx of TACO. No fevers recorded. HD today. # SOB - Pulm edema - Cont. HD per nephrology: 3.5L planned UF. Fluid restriction of 1.2L, < 2g Na diet. Tolerated 2.5L UF today. - Torsemide 80 mg po qd # Acute on chronic normocytic anemia - Most likely 2/2 worsening anemia of chronic disease - Transfuse under 7 # HTN - Cont. curent home regimen: Nifedipine ER 90 mg PO QD (changed from 60 mg), doxazosin 2 mg PO HS, Losartan 50 mg PO QD, torsemide 80 mg po qd # F/E/N - PO; 1.2L fluid restriction - Cont. to monitor - Low sodium, diabetic diet # DVT prophylaxis - Heparin SQ # Disposition - Med/surg Rivas Coon MD Visit type - Emergency Visit Emergency Visit: No - New Patient This patient is new to me today: No - Critical Care Critical Care patient: No ATTENDING PHYSICIAN STATEMENT I saw and evaluated the patient. I reviewed the resident's note and discussed the case with the resident. I agree with the resident's findings and plan as documented. SUBJECTIVE: OBJECTIVE: ASSESSMENT AND PLAN:
[2019-05-22] MEDS: NIFEdipine E.R. 90 MG TABLET PO SCH (15:00)
--- NOTE | 2019-05-22 17:48 | PN ---
Teaching Attending Note Name of Resident: Rivas Coon ATTENDING PHYSICIAN STATEMENT I saw and evaluated the patient. I reviewed the resident's note and discussed the case with the resident. I agree with the resident's findings and plan as documented. SUBJECTIVE: he was seen on HD at around 12 pm . No fever or chills. has no Abd pain, still feels SOB . has Venti mask on Objectives. NAD, awake, alert. MMM Cv: RRR, 2/6 SM at LLSB Lungs: b/l crackles Abd: soft, NT, nl BS Ext: R LE with BKA, with clean stump and no ulcers. refused exam of LLE ( BKA ) Assessment/Plan: 63 y/o man with h/o ESRD on HD (TTS), IDDM, HTN, PVD s/p L BKA, Diabetic neuropathy, MRSA bacteremia , , R IJ thrombus, 10/14, R foot OM and necrotizing fasciitis , s/p R BKA 04/16, MSSA bacteremia , normocytic anemia , and other medical problems who presented due to anemia. 1- Acute on chronic normocytic anemia: suspect worsening anemia from chronic disease. 2- SOB; due to pulm edema . 3- DM 4- HTN 5- Chronic pain 6- ESRD - still no clear etiology of his persistent SOB. no improvement despite daily HD. Not sure if we can fix his SOB. - cont to monitor HB. no labs today - received HD today - will d/w renal his losartan: hyperkalemic despite HD daily. - cont torsemide - cont losartan and nifedipine for now - cont levemir and SSI - cont heparin sq - d/w Dr. Jansen by team: resume routine HD tomorrow . dispo: will d/w SW his dc after HD tomorrow. ASSESSMENT AND PLAN:
[2019-05-22] MEDS ORDERED: INSULIN (NOVOLOG) ASPART 100 UNITS/ML 10ML VIAL ONE (20:14)
[2019-05-22] MEDS ORDERED: traZODone HCL 50 MG TABLET (FP) ONE (22:03)
[2019-05-22] MEDS ORDERED: traZODone HCL 100 MG TABLET (FP) ONE (22:04)
[2019-05-22] MEDS: DOXAZOSIN MESYLATE 2 MG TABLET PO SCH (22:06)
[2019-05-22] MEDS: TRAZODONE HCL PO SCH (22:06)
[2019-05-22] MEDS: LIDOCAINE PATCH REMOVAL MC SCH (22:10)
[2019-05-22] MEDS: ALBUTEROL SO4 2.5/IPRATROPIUM 0.5 INH SOL 3 ML VIAL.NEB. NEB PRN (22:28)
[2019-05-23] MEDS: VITAMINS A AND D TOPICAL OINTMENT 60 GM TUBE TP SCH ×4 (00:46→19:30)
[2019-05-23] MEDS: HEPARIN NA (PORCINE) 5,000 UNITS/ML 1ML VIAL SQ SCH ×3 (06:02→21:50)
[2019-05-23] MEDS: INSULIN SLIDING SCALE (NOVOLOG) 1 VIAL SQ SCH ×3 (06:02→17:17)
[2019-05-23] MEDS: METHADONE HCL 5 MG TABLET PO SCH ×3 (06:06→22:03)
[2019-05-23] MEDS: GABAPENTIN 300 MG CAPSULE PO SCH ×3 (06:06→21:51)
[2019-05-23] MEDS: INSULIN (LEVEMIR) 100 UNITS/ML UNITS SQ SCH ×2 (08:34→20:13)
--- NOTE | 2019-05-23 11:19 | PN ---
Progress Note, Physician - Current Medication List Current Medications: Active Medications Albuterol/Ipratropium (Duoneb -) 1 amp NEB Q4H PRN PRN Reason: SHORTNESS OF BREATH Last Admin: 05/22/19 22:28 Dose: 1 amp Bacitracin (Bacitracin -) 1 applic TP BID [facility] Last Admin: 05/22/19 22:05 Dose: 1 applic Doxazosin Mesylate (Cardura -) 2 mg PO HS [facility] Last Admin: 05/22/19 22:06 Dose: 2 mg Epoetin Joe (Epogen -) 20,000 unit IVPUSH ONCE ONE Stop: 05/23/19 06:01 Fluticasone Propionate (Flonase -) 1 spray NS DAILY [facility] Last Admin: 05/22/19 09:22 Dose: 1 spray Gabapentin (Neurontin -) 300 mg PO TID [facility] Last Admin: 05/23/19 06:06 Dose: 300 mg Heparin Sodium (Porcine) (Heparin -) 5,000 unit SQ TID [facility] Last Admin: 05/23/19 06:02 Dose: Not Given Sodium Chloride (Normal Saline -) 250 mls @ 3,000 mls/hr IV PRN PRN PRN Reason: Hypotension during Dialysis Stop: 05/23/19 13:20 Iron Sucrose 100 mg/ Sodium (Chloride) 105 mls @ 200 mls/hr IVPB ONCE ONE Stop: 05/23/19 06:31 Insulin Aspart (Novolog Vial Sliding Scale -) 1 vial SQ TIDAC [facility]; Protocol Last Admin: 05/23/19 06:02 Dose: Not Given Insulin Detemir (Levemir Vial) 3 units SQ Q12H [facility] Last Admin: 05/23/19 08:34 Dose: 3 units Lidocaine (Lidoderm Patch -) 1 patch TP DAILY [facility] Last Admin: 05/22/19 09:20 Dose: 1 patch Losartan Potassium (Cozaar -) 50 mg PO DAILY [facility] Last Admin: 05/22/19 12:46 Dose: 50 mg Methadone HCl (Dolophine -) 2.5 mg PO Q8H [facility] Last Admin: 05/23/19 06:06 Dose: 2.5 mg Miscellaneous (Lidoderm Patch Removal) 1 each MC DAILY@2200 [facility] Last Admin: 05/22/19 22:10 Dose: 1 each Multivit/Ca Carb/B Cmplx/FA/Prenat (Nephro-Guilherme -) 1 tablet PO DAILY [facility] Last Admin: 05/22/19 12:46 Dose: 1 tablet Nifedipine (Procardia Xl -) 90 mg PO DAILY [facility] Last Admin: 05/22/19 15:00 Dose: Not Given Tiotropium [place] (Spiriva Respimat) 2 puff IH DAILY [facility] Last Admin: 05/22/19 09:22 Dose: 2 puff Torsemide (Demadex -) 80 mg PO DAILY [facility] Last Admin: 05/22/19 12:46 Dose: 80 mg Trazodone HCl 400 mg/ (Trazodone HCl 50 mg) 450 mg PO HS [facility] Last Admin: 05/22/19 22:06 Dose: 450 mg Vitamin A/Vitamin D (Vitamin A & D Top Oint -) 1 applic TP Q6HPO [facility] Last Admin: 05/23/19 00:46 Dose: 1 applic - Objective Vital Signs: Vital Signs Temperature 98.1 F 05/22/19 19:15 Pulse Rate 82 05/22/19 19:15 Respiratory Rate 18 05/22/19 21:00 Blood Pressure 144/87 05/22/19 19:15 O2 Sat by Pulse Oximetry (%) 96 05/22/19 21:00 Labs: CBC, BMP 05/21/19 10:00 05/21/19 10:00 INR, PTT INR 1.38 (0.83-1.09) H 05/11/19 13:30
[2019-05-23 11:41] LABS: HEMATOCRIT 22.3 % (35.4-49); HEMOGLOBIN 7.2 GM/dL (11.7-16.9); MCH 28.7 pg (25.7-33.7); MCHC 32.3 g/dl (32.0-35.9); MEAN CELL VOLUME 88.8 fl (80-96); MEAN PLT VOLUME 7.7 fl (7.5-11.1); PLATELET COUNT 351 K/MM3 (134-434); RBC 2.51 M/mm3 (4.00-5.60); RDW 19.2 % (11.9-15.9); WHITE BLOOD COUNT 9.5 K/mm3 (4.0-10.0)
--- NOTE | 2019-05-23 11:47 | PN ---
Progress Note (short form) - Note Progress Note: RENAL Pt is currently on hemodialysis says he is not getting better despite hd had 3 liters removed yesterday Last Vital Signs Temp Pulse Resp BP Pulse Ox 98.1 F 82 18 144/87 96 05/22/19 19:15 05/22/19 19:15 05/22/19 21:00 05/22/19 19:15 05/22/19 21:00 lungs dry crackles and decreased breath sounds cvs s1s2 rr abd soft ext bilat bka neuro a+ox3 CBC, BMP 05/21/19 10:00 05/21/19 10:00 Current Medications Generic Name Dose Route Start Last Admin Trade Name Freq PRN Reason Stop Dose Admin Albuterol/Ipratropium 1 amp 05/20/19 17:24 05/22/19 22:28 Duoneb - NEB 1 amp Q4H PRN Administration SHORTNESS OF BREATH Bacitracin 1 applic 05/12/19 11:15 05/22/19 22:05 Bacitracin - TP 1 applic BID IGGY Administration Doxazosin Mesylate 2 mg 05/09/19 22:00 05/22/19 22:06 Cardura - PO 2 mg HS IGGY Administration Epoetin Joe 20,000 unit 05/23/19 06:00 Epogen - IVPUSH 05/23/19 06:01 ONCE ONE Fluticasone Propionate 1 spray 05/09/19 10:00 05/22/19 09:22 Flonase - NS 1 spray DAILY IGGY Administration Gabapentin 300 mg 05/09/19 14:00 05/23/19 06:06 Neurontin - PO 300 mg TID IGGY Administration Heparin Sodium (Porcine) 5,000 unit 05/20/19 22:00 05/23/19 06:02 Heparin - SQ Not Given TID IGGY Sodium Chloride 250 mls @ 3,000 mls/hr 05/22/19 13:20 Normal Saline - IV 05/23/19 13:20 PRN PRN Hypotension during Dialysis Iron Sucrose 100 mg/ Sodium 105 mls @ 200 mls/hr 05/23/19 06:00 Chloride IVPB 05/23/19 06:31 ONCE ONE Insulin Aspart 1 vial 05/11/19 14:51 05/23/19 06:02 Novolog Vial Sliding Scale - SQ Not Given TIDAC [facility] Protocol Insulin Detemir 3 units 05/17/19 20:00 05/23/19 08:34 Levemir Vial SQ 3 units Q12H IGGY Administration Lidocaine 1 patch 05/09/19 10:00 05/22/19 09:20 Lidoderm Patch - TP 1 patch DAILY IGGY Administration Losartan Potassium 50 mg 05/20/19 10:00 05/22/19 12:46 Cozaar - PO 50 mg DAILY IGGY Administration Methadone HCl 2.5 mg 05/19/19 15:00 05/23/19 06:06 Dolophine - PO 2.5 mg Q8H IGGY Administration Miscellaneous 1 each 05/09/19 22:00 05/22/19 22:10 Lidoderm Patch Removal MC 1 each DAILY@2200 IGGY Administration Multivit/Ca Carb/B Cmplx/FA/Prenat 1 tablet 05/09/19 10:00 05/22/19 12:46 Nephro-Guilherme - PO 1 tablet DAILY IGGY Administration Nifedipine 90 mg 05/13/19 10:00 05/22/19 15:00 Procardia Xl - PO Not Given DAILY IGGY Tiotropium [place] 2 puff 05/10/19 10:00 05/22/19 09:22 Spiriva Respimat IH 2 puff DAILY IGGY Administration Torsemide 80 mg 05/16/19 10:00 05/22/19 12:46 Demadex - PO 80 mg DAILY IGGY Administration Trazodone HCl 400 mg/ 450 mg 05/09/19 22:15 05/22/19 22:06 Trazodone HCl 50 mg PO 450 mg HS IGGY Administration Vitamin A/Vitamin D 1 applic 05/14/19 18:00 05/23/19 00:46 Vitamin A & D Top Oint - TP 1 applic Q6HPO IGGY Administration 63 year old gentleman with history of ESRD on HD, DM, hypertension, PVD s/p bilateral BKA presented from HD unit with worsening anemia and shortness of breath. 1. ESRD on HD 2. Acute on Chronic anemia (negative stool occult blood, + recent infection may have lead to ADRIAN resistance) 3. Shortness of breath secondary to fluid overload 4. Fluid overload- maybe drinking more than he is supposed to PLAN continue fluid removal with hd needs to control fluid intake would ask pul;monary to eval since it may not all be fluid MV
[2019-05-23] MEDS ORDERED: IRON SUCROSE INJECTION 100 MG in SODIUM CHLORIDE 100 ML IVPB ONE (12:15)
[2019-05-23] MEDS ORDERED: EPOETIN ALFA 20,000 UNIT/1 ML VIAL IVPUSH ONE (12:15)
[2019-05-23 12:34] LABS: BLOOD UREA NITROGEN 62.6 mg/dL (7-18); CALCIUM 7.9 mg/dL (8.5-10.1); CREATININE 5.3 mg/dL (0.55-1.3); PHOSPHOROUS 5.7 mg/dL (2.5-4.9); POTASSIUM 5.9 mmol/L (3.5-5.1)
--- NOTE | 2019-05-23 12:38 | PN ---
Teaching Attending Note Name of Resident: Rivas Coon ATTENDING PHYSICIAN STATEMENT I saw and evaluated the patient. I reviewed the resident's note and discussed the case with the resident. I agree with the resident's findings and plan as documented. SUBJECTIVE: No fever or chills. No PEREZ . feels " the same". cont to feel SOB. Objectives: NAD, awake, alert. Flat affect. Cv: RRR, 2/6 SM at LLSB Lungs: b/l crackles Ext: b/l BKAs. Assessment/Plan: 63 y/o man with h/o ESRD on HD (TTS), IDDM, HTN, PVD s/p L BKA, Diabetic neuropathy, MRSA bacteremia , , R IJ thrombus, 10/14, R foot OM and necrotizing fasciitis , s/p R BKA 04/16, MSSA bacteremia , normocytic anemia , and other medical problems who presented due to anemia. 1- Acute on chronic normocytic anemia: suspect worsening anemia from chronic/ renal disease. 2- SOB; due to pulm edema . 3- DM 4- HTN 5- Chronic pain 6- ESRD 7- Hyperkalemia - still no clear etiology of his persistent SOB. will check CT of chest to evaluate for pleural effusion - Stable HB today. No need for transfusion - HD today - stop Losartan due to persistent hyperkalemia , and non compliance with blood work. change to hydralazine 50 BID . dw renal who agrees . - cont torsemide - cont nifedipine - cont levemir and SSI - cont heparin sq - cont his routine HD schedule TTS dispo: dc depends on his Ct scan results. if no Effusion that need to be drained , then can go back to [facility] today if a bed available
--- NOTE | 2019-05-23 15:04 | PN ---
Progress Note (short form) - Note Progress Note: PULMONARY Appears comfortable off O@ on way back from HD o2 sats ranging from 95-100 % vss/afebrile Gen: less tachypneic at rest Heart: RRR Lung: scattered rhonchi Abd: soft, nontender Ext: bilateral BKA Chart/labs/meds/notes/images reviewed A/P Dyspnea is multifactorial: Volume overload/Acute on Chronic Diastolic Heart Failure/Anemia s/p 4 unit PRBC transfusion ESRD on HD HTN DM Bilateral BKA h/o Osteomyelitis - HD per renal with ultrafiltration - O2 to keep Spo2 >90% - inhaled bronchodilators as needed - DVT prophylaxis - Low index of suspicion for PE - House staff has ordered non contrast ct chest Mariama Lema MD
[2019-05-23] MEDS: LIDOCAINE 5% TOPICAL PATCH TP SCH (15:06)
[2019-05-23] MEDS: VITAMIN B COMP W-C 1 EA TABLET PO SCH (15:07)
[2019-05-23] MEDS: FLUTICASONE PROP 0.05% 16 GM NASAL SPRAY NS SCH (15:07)
[2019-05-23] MEDS: BACITRACIN 15 GM TUBE TOPICAL OINTMENT TP SCH ×2 (15:08→21:54)
[2019-05-23] MEDS: TIOTROPIUM BROMIDE 2.5 MCG (SPIRIVA) RESPIMAT INHALER IH SCH (15:08)
[2019-05-23] MEDS: NIFEdipine E.R. 90 MG TABLET PO SCH (15:08)
[2019-05-23] MEDS: TORSEMIDE 20 MG TABLET (FP) PO SCH (15:08)
[2019-05-23] MEDS: LOSARTAN POTASSIUM 50 MG TABLET (FP) PO SCH (15:58)
--- NOTE | 2019-05-23 17:06 | DS ---
Physical Exam: SUBJECTIVE: OBJECTIVE: Vital Signs Period Temp Pulse Resp BP Sys/Gutierrez Pulse Ox Last 24 Hr 98.1 F 72-82 18-20 114-144/64-87 96-100 PHYSICAL EXAM GENERAL: The patient is awake, alert, and fully oriented, in no acute distress. HEAD: Normal with no signs of trauma. EYES: PERRL, extraocular movements intact, sclera anicteric, conjunctiva clear. ENT: Ears normal, nares patent, oropharynx clear without exudates, moist mucous membranes. NECK: Trachea midline, full range of motion, supple. LUNGS: Breath sounds equal, clear to auscultation bilaterally, no wheezes, no crackles, no accessory muscle use. HEART: Regular rate and rhythm, S1, S2 without murmur, rub or gallop. ABDOMEN: Soft, nontender, nondistended, normoactive bowel sounds, no guarding, no rebound, no hepatosplenomegaly, no masses. EXTREMITIES: 2+ pulses, warm, well-perfused, no edema. BL BKA NEUROLOGICAL: Cranial nerves II through XII grossly intact. Normal speech, gait not observed. PSYCH: Normal mood, normal affect. SKIN: Warm, dry, normal turgor, no rashes or lesions noted. LABS Laboratory Results - last 24 hr 05/22/19 05/23/19 05/23/19 17:10 05:59 10:45 WBC RBC Hgb Hct MCV MCH MCHC RDW Plt Count MPV Sodium 135 L Potassium 5.9 H Chloride 100 Carbon Dioxide 28 Anion Gap 7 L BUN 62.6 H Creatinine 5.3 H Est GFR (CKD-EPI)AfAm 12.31 Est GFR (CKD-EPI)NonAf 10.62 POC Glucometer 130 216 Random Glucose 291 H Calcium 7.9 L Phosphorus 5.7 H Blood Type Antibody Screen 05/23/19 05/23/19 10:45 11:21 WBC 9.5 RBC 2.51 L Hgb 7.2 L Hct 22.3 L MCV 88.8 MCH 28.7 MCHC 32.3 RDW 19.2 H Plt Count 351 MPV 7.7 Sodium Potassium Chloride Carbon Dioxide Anion Gap BUN Creatinine Est GFR (CKD-EPI)AfAm Est GFR (CKD-EPI)NonAf POC Glucometer Random Glucose Calcium Phosphorus Blood Type B POSITIVE Antibody Screen Negative HOSPITAL COURSE: Date of Admission:05/09/19 Pt dc ; please see other dc sum Date of Discharge: 05/23/19 Minutes to complete discharge: 40 Discharge Summary Problems reviewed: Yes Reason For Visit: SEVERE ANEMIA Current Active Problems Shortness of breath (Acute) Anemia (Chronic) Dialysis patient (Chronic) ESRD (end stage renal disease) (Chronic) Condition: Stable - Instructions Diet, Activity, Other Instructions: YOUR VISIT You came to the hospital because you were you were short of breath. You were admitted to the hospital for care of low blood count (low hemoglobin). While here you were seen by a office asst, fulling machine operator, and an infectious disease specialist. You benefitted from dialysis. You are now stable and [facility] MEDICATIONS Please continue to take your medications as prescribed. Medication change - Nefedipine 90 mg by mouth once a day (dose increased from 60 mg) New Medications - Hydralazine 25 mg by mouth three times a day. - Torsemide 80 mg by mouth every day. - please administer the levemir with breakfast and with dinner due to increased sensitivity to insulin and risk of hypoglycemia. ADDITIONAL CARE Please make an appointment to see a primary care provider 1 week from today. The [facility] residents clinic is located at [address] [place] [address]. Please call to make an appointment. If you would like to continue seeing Dr. Rivas Coon, please ask for a Saturday morning appointment. Please make an appointment to see a fulling machine operator in 1 week. A referral has to Dr. Jansen has been provided. Please make an appointment to see a office asst in 1 week. A referral has to Dr. Butt has been provided. You will need a follow-up CT scan of the chest in 6-8 weeks from now to evaluate the enlarged lymphondes seen on CT CT scan You can follow with Dr. Wiley from GI for any further GI work up ( colonoscopy ) ADDITIONAL INFORMATION Please call [phone] or come directly to the emergency department if you experience unusual headache, vision change, shortness of breath, chest pain, numbness, tingling, loss of alertness/awareness, loss of function, unusual bleeding or any alarming symptoms. You need 4 Liters of oxygen through nasal cannula at all times. Referrals: Ru Barron MD [Staff Physician] - 1 Week Cinthia Wiley DO [Staff Physician] - 3 Weeks Nando Butt MD [Staff Physician] - 2 Weeks Miguel Jansen MD [Staff Physician] - 1 Week Disposition: HALFWAY FACILITY - Home Medications Comprehensive Discharge Medication List: Ambulatory Orders Fluticasone Prop 0.05% Nasal [Flonase -] 1 - 2 spray NS DAILY #1 spray.pump 08/23/17 Lidocaine 5% Patch [Lidoderm -] 1 patch TP DAILY patch 10/06/17 Lidocaine Patch Removal [Lidoderm Patch Removal] 1 each MC DAILY@2200 each 10/06/17 traZODone HCL [Desyrel -] 450 mg PO HS 04/07/19 Methadone [Dolophine -] 2.5 mg PO TID 04/16/19 Insulin Sliding Scale [Novolog Vial Sliding Scale -] 1 vial SQ TIDAC #1 vial 04/20/19 Vitamin B Comp W-C [Nephro-Guilherme -] 1 tablet PO DAILY #30 tablet 04/20/19 Doxazosin Mesylate 4 mg PO DAILY 05/11/19 Gabapentin 100 mg PO BID 05/11/19 Nifedipine ER [Procardia XL -] 90 mg PO DAILY 05/11/19 Albuterol 0.083% Nebulizer [place] [Ventolin 0.083% Nebulizer Soln -] 1 neb NEB Q6H PRN 30 Days vial 05/23/19 Bacitracin - [Bacitracin Topical Ointment -] 1 applic TP BID tube 05/23/19 Insulin Detemir [Levemir Flextouch] 3 unit SQ BID 30 Days #3 insuln.pen 05/23/19 Nifedipine ER [Procardia XL -] 90 mg PO DAILY tab.er.24 05/23/19 Tiotropium [place] [Spiriva Respimat] 2 puff IH DAILY inhaler 05/23/19 Torsemide [Demadex -] 80 mg PO DAILY 30 Days #30 tablet 05/23/19 Vitamin A & D Top Oint - 1 applic TP Q6HPO tube 05/23/19 hydrALAZINE HCL [Apresoline -] 25 mg PO TID 30 Days #90 tablet 05/23/19 This patient is new to me today: No Emergency Visit: No Critical Care patient: No - Discharge Referral Referred to [facility] No ATTENDING PHYSICIAN STATEMENT I saw and evaluated the patient. I reviewed the resident's note and discussed the case with the resident. I agree with the resident's findings and plan as documented. SUBJECTIVE: OBJECTIVE: ASSESSMENT AND PLAN:
[2019-05-23 17:57] VITALS: TEMP 98.3
[2019-05-23 19:36] LABS: ARTERIAL BLD GAS O2 SATURATION 78.7 % (95-98); ARTERIAL BLOOD GAS BASE EXCESS 7.9 meq/l (-2-2); ARTERIAL BLOOD GAS PCO2 46.4 mmHg (35-45); ARTERIAL BLOOD GAS pH 7.46 (7.35-7.45)
[2019-05-23 19:39] LABS: ALLENS TEST POSITIVE
[2019-05-23 19:43] LABS: ARTERIAL BLOOD GAS PO2 < 49 mmHg (80-100)
--- NOTE | 2019-05-23 19:49 | PN ---
Progress Note (short form) - Note Progress Note: Messaged by RN to come assess pt as transport find his o2 saturation to be 84. He was being picked up for transport to [facility]. The pt was upset and getting dressed. He was at his baseline state of shortness of breath and had no other complaints. Upon reassessment the pt desaturated to 80% on room air with a good wave form. He was given NC and improved immediately. The pt was taken off o2 and he desaturated rapidly from 99 to 84 while seated during normal conversation. BP 152/81, HR 90, RR 22, temp 98.3. He was sitting comfortably and not using accessory muscles. Lungs had BL crackles. He is s/p HD today. He has been assessed for PE regularly during this visit and is on ac so low suspicion. An ABG was ordered, which resulted in ph 7.46, pCO2 464, pO2 49. BiPap was offered and pt refused. He requests venti mask and nebulizer treatment.
[2019-05-23] MEDS ORDERED: INSULIN (NOVOLOG) ASPART 100 UNITS/ML 10ML VIAL ONE (20:08)
[2019-05-23] MEDS: ALBUTEROL SO4 2.5/IPRATROPIUM 0.5 INH SOL 3 ML VIAL.NEB. NEB PRN (20:35)
[2019-05-23] MEDS ORDERED: traZODone HCL 100 MG TABLET (FP) ONE (21:40)
[2019-05-23] MEDS ORDERED: traZODone HCL 50 MG TABLET (FP) ONE (21:40)
[2019-05-23] MEDS: TRAZODONE HCL PO SCH (21:50)
[2019-05-23] MEDS: LIDOCAINE PATCH REMOVAL MC SCH (21:53)
[2019-05-23] MEDS ORDERED: PT OWN MED DRAWER 7, Y5N ONE (21:54)
[2019-05-23] MEDS: DOXAZOSIN MESYLATE 2 MG TABLET PO SCH (22:03)
[2019-05-24] MEDS: VITAMINS A AND D TOPICAL OINTMENT 60 GM TUBE TP SCH ×3 (00:19→13:44)
--- NOTE | 2019-05-24 03:34 | PN ---
Physical Exam: SUBJECTIVE: Patient seen and examined at bedside. Overnight there were no acute events. This AM he offers no complaints and says his SOB is most stable it has been during stay. OBJECTIVE: Vital Signs Temp Pulse Resp BP Pulse Ox 98.3 F 90 18 152/81 98 05/23/19 17:56 05/23/19 17:56 05/23/19 21:00 05/23/19 17:56 05/23/19 21:00 GENERAL: AOx3, in no acute distress. Carbon-fiber prosthesis at bedside. HEAD: NCAT EYES: ROBERTH, EOMI, conjunctiva clear. ENT: Ears normal, nares patent, oropharynx clear without exudates. Moist mucous membranes. NECK: Normal range of motion, supple without lymphadenopathy, JVD, or masses. LUNGS: Bibasalar crackles. No wheezes, and no crackles. No accessory muscle use. HEART: RRR s1 s2 ABDOMEN: Soft, BS present in all 4 quadrants, non-distended, no JVD, MUSCULOSKELETAL: No bony deformities or tenderness. No CVA tenderness. UPPER EXTREMITIES: LEFT arm AV fistula. 2+ pulses, warm, well-perfused. No cyanosis. No clubbing. No peripheral edema. LOWER EXTREMITIES: BL BKA, some dryness BL and area of chaffing on LEFT nub. NEUROLOGICAL: RIGHT 5/5, LEFT 4/5 strength. Cranial nerves II-XII intact. Normal speech. Gait not appreciated. PSYCHIATRIC: Not very cooperative and argumentative. Good eye contact. Appropriate mood and affect. SKIN: Warm, dry, normal turgor, no rashes or lesions noted, normal capillary refill. SKIN: Warm, dry, normal turgor, no rashes or lesions noted Laboratory Results - last 24 hr 05/23/19 05/23/19 05/23/19 05:59 10:45 10:45 WBC RBC Hgb Hct MCV MCH MCHC RDW Plt Count MPV Anticoagulation Therapy Puncture Site ABG pH ABG pCO2 at Pt Temp ABG pO2 at Pt Temp ABG HCO3 ABG O2 Sat (Measured) ABG O2 Content ABG Base Excess Beau Test O2 Delivery Device Oxygen Flow Rate Vent Mode Vent Rate Mechanical Rate Pressure Support Vent Sodium 135 L Potassium 5.9 H Chloride 100 Carbon Dioxide 28 Anion Gap 7 L BUN 62.6 H Creatinine 5.3 H Est GFR (CKD-EPI)AfAm 12.31 Est GFR (CKD-EPI)NonAf 10.62 POC Glucometer 216 Random Glucose 291 H Calcium 7.9 L Phosphorus 5.7 H Creatine Kinase Troponin I Blood Type B POSITIVE Antibody Screen Negative 05/23/19 05/23/19 05/23/19 11:21 17:05 19:30 WBC 9.5 RBC 2.51 L Hgb 7.2 L Hct 22.3 L MCV 88.8 MCH 28.7 MCHC 32.3 RDW 19.2 H Plt Count 351 MPV 7.7 Anticoagulation Therapy No Result Required. Puncture Site Right radial ABG pH 7.46 H ABG pCO2 at Pt Temp 46.4 H ABG pO2 at Pt Temp < 49 L* ABG HCO3 32.3 H ABG O2 Sat (Measured) 78.7 L ABG O2 Content 78.7 ABG Base Excess 7.9 H Beau Test Positive O2 Delivery Device Room air Oxygen Flow Rate No Result Required. Vent Mode No Result Required. Vent Rate No Result Required. Mechanical Rate No Result Required. Pressure Support Vent No Result Required. Sodium Potassium Chloride Carbon Dioxide Anion Gap BUN Creatinine Est GFR (CKD-EPI)AfAm Est GFR (CKD-EPI)NonAf POC Glucometer 243 Random Glucose Calcium Phosphorus Creatine Kinase Troponin I Blood Type Antibody Screen 05/23/19 20:40 WBC RBC Hgb Hct MCV MCH MCHC RDW Plt Count MPV Anticoagulation Therapy Puncture Site ABG pH ABG pCO2 at Pt Temp ABG pO2 at Pt Temp ABG HCO3 ABG O2 Sat (Measured) ABG O2 Content ABG Base Excess Beau Test O2 Delivery Device Oxygen Flow Rate Vent Mode Vent Rate Mechanical Rate Pressure Support Vent Sodium Potassium Chloride Carbon Dioxide Anion Gap BUN Creatinine Est GFR (CKD-EPI)AfAm Est GFR (CKD-EPI)NonAf POC Glucometer Random Glucose Calcium Phosphorus Creatine Kinase 111 Troponin I < 0.02 Blood Type Antibody Screen Active Medications Albuterol/Ipratropium (Duoneb -) 1 amp NEB Q4H PRN PRN Reason: SHORTNESS OF BREATH Last Admin: 05/23/19 20:35 Dose: 1 amp Bacitracin (Bacitracin -) 1 applic TP BID IGGY Last Admin: 05/23/19 21:54 Dose: 1 applic Doxazosin Mesylate (Cardura -) 2 mg PO HS IGGY Last Admin: 05/23/19 22:03 Dose: 2 mg Fluticasone Propionate (Flonase -) 1 spray NS DAILY [facility] Last Admin: 05/23/19 15:07 Dose: 1 spray Gabapentin (Neurontin -) 300 mg PO TID [facility] Last Admin: 05/23/19 21:51 Dose: 300 mg Heparin Sodium (Porcine) (Heparin -) 5,000 unit SQ TID [facility] Last Admin: 05/23/19 21:50 Dose: 5,000 unit Hydralazine HCl (Apresoline -) 50 mg PO BID [facility] Insulin Aspart (Novolog Vial Sliding Scale -) 1 vial SQ TIDAC [facility]; Protocol Last Admin: 05/23/19 17:17 Dose: Not Given Insulin Detemir (Levemir Vial) 3 units SQ Q12H [facility] Last Admin: 05/23/19 20:13 Dose: 3 units Lidocaine (Lidoderm Patch -) 1 patch TP DAILY [facility] Last Admin: 05/23/19 15:06 Dose: 1 patch Methadone HCl (Dolophine -) 2.5 mg PO Q8H [facility] Last Admin: 05/23/19 22:03 Dose: 2.5 mg Miscellaneous (Lidoderm Patch Removal) 1 each MC DAILY@2200 [facility] Last Admin: 05/23/19 21:53 Dose: 1 each Multivit/Ca Carb/B Cmplx/FA/Prenat (Nephro-Guilherme -) 1 tablet PO DAILY [facility] Last Admin: 05/23/19 15:07 Dose: 1 tablet Nifedipine (Procardia Xl -) 90 mg PO DAILY [facility] Last Admin: 05/23/19 15:08 Dose: Not Given Tiotropium [place] (Spiriva Respimat) 2 puff IH DAILY [facility] Last Admin: 05/23/19 15:08 Dose: 2 puff Torsemide (Demadex -) 80 mg PO DAILY [facility] Last Admin: 05/23/19 15:08 Dose: Not Given Trazodone HCl 400 mg/ (Trazodone HCl 50 mg) 450 mg PO HS [facility] Last Admin: 05/23/19 21:50 Dose: 450 mg Vitamin A/Vitamin D (Vitamin A & D Top Oint -) 1 applic TP Q6HPO [facility] Last Admin: 05/24/19 00:19 Dose: Not Given ASSESSMENT/PLAN: 63 y/o male PMH HTN, insulin treated DM, ESRD (TTS), PVD s/p BL BKA (2019) and MRSA bacteremia brought in for anemia. SOB active problem now: HD with removal of 3kg give dx of TACO. HD today and plan to return to regular HD sched. # SOB - S/p HD: 3.5L planned UF. Fluid restriction of 1.2L, < 2g Na diet. Tolerated 2.5L UF today. - Torsemide 80 mg po qd - Case discussed with Dr. Argueta: Despite fluid removal in HD, pt still symptomatic. [place] getting new imaging to assess status since last CXR showed worsening. - CT chest stat - CT findings discussed with Dr. Lema: BL pleural effusions with no great benefit of tap. # Acute on chronic normocytic anemia - Most likely 2/2 worsening anemia of chronic disease - Transfuse under 7 # HTN - Cont. curent home regimen: Nifedipine ER 90 mg PO QD, doxazosin 2 mg PO HS, Losartan 50 mg PO QD, torsemide 80 mg po qd # F/E/N - PO; 1.2L fluid restriction - Cont. to monitor - Low sodium, diabetic diet # DVT prophylaxis - Heparin SQ # Disposition - Med/surg Rivas Coon MD Visit type - Emergency Visit Emergency Visit: No - New Patient This patient is new to me today: No - Critical Care Critical Care patient: No ATTENDING PHYSICIAN STATEMENT I saw and evaluated the patient. I reviewed the resident's note and discussed the case with the resident. I agree with the resident's findings and plan as documented. SUBJECTIVE: OBJECTIVE: ASSESSMENT AND PLAN:
[2019-05-24] MEDS: HEPARIN NA (PORCINE) 5,000 UNITS/ML 1ML VIAL SQ SCH (06:22)
[2019-05-24] MEDS: GABAPENTIN 300 MG CAPSULE PO SCH ×2 (06:23→13:43)
[2019-05-24] MEDS: INSULIN SLIDING SCALE (NOVOLOG) 1 VIAL SQ SCH ×2 (06:23→11:57)
[2019-05-24] MEDS: METHADONE HCL 5 MG TABLET PO SCH ×2 (06:23→13:43)
[2019-05-24] MEDS: ALBUTEROL SO4 2.5/IPRATROPIUM 0.5 INH SOL 3 ML VIAL.NEB. NEB PRN (07:30)
[2019-05-24] MEDS: INSULIN (LEVEMIR) 100 UNITS/ML UNITS SQ SCH (08:27)
[2019-05-24] MEDS ORDERED: hydrALAZINE HCL 50 MG TABLET (FP) PO SCH (10:00)
[2019-05-24] MEDS: TORSEMIDE 20 MG TABLET (FP) PO SCH (10:41)
[2019-05-24] MEDS: NIFEdipine E.R. 90 MG TABLET PO SCH (10:42)
[2019-05-24] MEDS: BACITRACIN 15 GM TUBE TOPICAL OINTMENT TP SCH (10:43)
[2019-05-24] MEDS: TIOTROPIUM BROMIDE 2.5 MCG (SPIRIVA) RESPIMAT INHALER IH SCH (10:43)
[2019-05-24] MEDS: FLUTICASONE PROP 0.05% 16 GM NASAL SPRAY NS SCH (10:43)
[2019-05-24] MEDS: LIDOCAINE 5% TOPICAL PATCH TP SCH (10:43)
[2019-05-24] MEDS: VITAMIN B COMP W-C 1 EA TABLET PO SCH (10:43)
--- NOTE | 2019-05-24 11:56 | PN ---
Progress Note, Physician - Current Medication List Current Medications: Active Medications Albuterol/Ipratropium (Duoneb -) 1 amp NEB Q4H PRN PRN Reason: SHORTNESS OF BREATH Last Admin: 05/24/19 07:30 Dose: 1 amp Bacitracin (Bacitracin -) 1 applic TP BID [facility] Last Admin: 05/24/19 10:43 Dose: 1 applic Doxazosin Mesylate (Cardura -) 2 mg PO HS [facility] Last Admin: 05/23/19 22:03 Dose: 2 mg Fluticasone Propionate (Flonase -) 1 spray NS DAILY [facility] Last Admin: 05/24/19 10:43 Dose: 1 spray Gabapentin (Neurontin -) 300 mg PO TID [facility] Last Admin: 05/24/19 06:23 Dose: 300 mg Heparin Sodium (Porcine) (Heparin -) 5,000 unit SQ TID [facility] Last Admin: 05/24/19 06:22 Dose: Not Given Hydralazine HCl (Apresoline -) 50 mg PO BID [facility] Last Admin: 05/24/19 10:41 Dose: 50 mg Insulin Aspart (Novolog Vial Sliding Scale -) 1 vial SQ TIDAC [facility]; Protocol Last Admin: 05/24/19 06:23 Dose: Not Given Insulin Detemir (Levemir Vial) 3 units SQ Q12H [facility] Last Admin: 05/24/19 08:27 Dose: 3 units Lidocaine (Lidoderm Patch -) 1 patch TP DAILY [facility] Last Admin: 05/24/19 10:43 Dose: 1 patch Methadone HCl (Dolophine -) 2.5 mg PO Q8H [facility] Last Admin: 05/24/19 06:23 Dose: 2.5 mg Miscellaneous (Lidoderm Patch Removal) 1 each MC DAILY@2200 [facility] Last Admin: 05/23/19 21:53 Dose: 1 each Multivit/Ca Carb/B Cmplx/FA/Prenat (Nephro-Guilherme -) 1 tablet PO DAILY [facility] Last Admin: 05/24/19 10:43 Dose: 1 tablet Nifedipine (Procardia Xl -) 90 mg PO DAILY [facility] Last Admin: 05/24/19 10:42 Dose: 90 mg Tiotropium [place] (Spiriva Respimat) 2 puff IH DAILY [facility] Last Admin: 05/24/19 10:43 Dose: 2 puff Torsemide (Demadex -) 80 mg PO DAILY [facility] Last Admin: 05/24/19 10:41 Dose: 80 mg Trazodone HCl 400 mg/ (Trazodone HCl 50 mg) 450 mg PO HS [facility] Last Admin: 05/23/19 21:50 Dose: 450 mg Vitamin A/Vitamin D (Vitamin A & D Top Oint -) 1 applic TP Q6HPO [facility] Last Admin: 05/24/19 06:23 Dose: Not Given - Objective Vital Signs: Vital Signs Temperature 98.3 F 05/24/19 05:36 Pulse Rate 72 05/24/19 10:02 Respiratory Rate 05/24/19 05:36 Blood Pressure 126/66 05/24/19 05:36 O2 Sat by Pulse Oximetry (%) 100 05/24/19 10:02 Labs: CBC, BMP 05/23/19 11:21 05/23/19 10:45 INR, PTT INR 1.38 (0.83-1.09) H 05/11/19 13:30
[2019-05-24 12:06] VITALS: BP 159/81
--- NOTE | 2019-05-24 12:07 | PN ---
Progress Note (short form) - Note Progress Note: PULMONARY Appears comfortable off O2 while washing at bedside vss/afebrile Gen: less tachypneic at rest Heart: RRR Lung: scattered rhonchi Abd: soft, nontender Ext: bilateral BKA Chart/labs/meds/notes/images/ct chest reviewed A/P Dyspnea is multifactorial: Volume overload/Acute on Chronic Diastolic Heart Failure/Anemia s/p 4 unit PRBC transfusion ESRD on HD HTN DM Bilateral BKA h/o Osteomyelitis - HD per renal with ultrafiltration - check spO2 off o2 - inhaled bronchodilators as needed - DVT prophylaxis - Low index of suspicion for PE Mariama Lema MD
[2019-05-24 12:20] VITALS: PULSE 80
--- NOTE | 2019-05-24 12:31 | EKG ---
Test Reason : Blood Pressure : / mmHG Vent. Rate : 092 BPM Atrial Rate : 092 BPM P-R Int : 192 ms QRS Dur : 096 ms QT Int : 370 ms P-R-T Axes : 000 055 055 degrees QTc Int : 457 ms NORMAL SINUS RHYTHM INCOMPLETE RBBB CANNOT RULE OUT SEPTAL INFARCT , AGE UNDETERMINED WHEN COMPARED WITH ECG OF 09-MAY-2019 08:18, NO SIGNIFICANT CHANGE WAS FOUND Confirmed by CARIN ROGERS MD ([id number]) on 05/24/2019 12:31:31 PM Referred By: REDDY Confirmed By:CARIN ROGERS MD
--- NOTE | 2019-05-24 12:46 | PN ---
Progress Note (short form) - Note Progress Note: Subjective: Refused interview and fired MD. Unclear reason. Vital Signs: Last Vital Signs Temp Pulse Resp BP Pulse Ox 98.3 F 80 20 159/81 98 05/24/19 05:36 05/24/19 12:16 05/24/19 10:00 05/24/19 10:00 05/24/19 12:16 Labs: No labs today Imaging: EKG from last night reviewed. No changes from before Assessment/Plan: 63 y/o man with h/o ESRD on HD (TTS), IDDM, HTN, PVD s/p L BKA, Diabetic neuropathy, MRSA bacteremia , , R IJ thrombus, 10/14, R foot OM and necrotizing fasciitis , s/p R BKA 04/16, MSSA bacteremia , normocytic anemia , and other medical problems who presented due to anemia. 1- Acute on chronic normocytic anemia: suspect worsening anemia from chronic/ renal disease. 2- SOB; Hypoxia : due to compromised lungs from renal disease, and other comorbidities. 3- DM 4- HTN 5- Chronic pain 6- ESRD 7- Hyperkalemia - -requires O2 , 4 L at all times. - CT findings were d.w Dr. Cardoso yesterday. No need fr pleurocentesis, as effusion is not responsible for hypoxia . -monitor HB as out pt with HD - HD per his routine schedule TTS -cont Nifedipine and HZN for HTN - cont torsemide - cont levemir and SSI DC today. case was d/w Dr. Gordillo by me and with Dr. Cardoso by RN. all in agreement with DC Visit type - Emergency Visit Emergency Visit: Yes ED Registration Date: 05/09/19 Care time: The patient presented to the Emergency Department on the above date and was hospitalized for further evaluation of their emergent condition. - New Patient This patient is new to me today: No - Critical Care Critical Care patient: No
--- NOTE | 2019-05-25 16:56 | DS ---
Physical Exam: SUBJECTIVE: Patient seen and examined at bedside. There were no acute events overnight. This AM he offers no new complaints. OBJECTIVE: Temp Pulse Resp BP Pulse Ox 98.3 F 80 20 159/81 98 05/24/19 05:36 05/24/19 12:16 05/24/19 10:00 05/24/19 10:00 05/24/19 12:16 PHYSICAL EXAM GENERAL: AOx3, in no acute distress. Carbon-fiber prosthesis at bedside. HEAD: NCAT EYES: ROBERTH, EOMI, conjunctiva clear. ENT: Ears normal, nares patent, oropharynx clear without exudates. Moist mucous membranes. NECK: Normal range of motion, supple without lymphadenopathy, JVD, or masses. LUNGS: Bibasalar crackles. No wheezes, and no crackles. No accessory muscle use. HEART: RRR s1 s2 ABDOMEN: Soft, BS present in all 4 quadrants, non-distended, no JVD, MUSCULOSKELETAL: No bony deformities or tenderness. No CVA tenderness. UPPER EXTREMITIES: LEFT arm AV fistula. 2+ pulses, warm, well-perfused. No cyanosis. No clubbing. No peripheral edema. LOWER EXTREMITIES: BL BKA, some dryness BL and area of chaffing on LEFT nub. NEUROLOGICAL: RIGHT 5/5, LEFT 4/5 strength. Cranial nerves II-XII intact. Normal speech. Gait not appreciated. PSYCHIATRIC: Not very cooperative and argumentative. Good eye contact. Appropriate mood and affect. SKIN: Warm, dry, normal turgor, no rashes or lesions noted, normal capillary refill. SKIN: Warm, dry, normal turgor, no rashes or lesions noted LABS CBC, BMP 05/23/19 11:21 05/23/19 10:45 HOSPITAL COURSE: Date of Admission:05/09/19 63 y/o male PMH HTN, insulin treated DM, ESRD (TTS), PVD s/p BL BKA (2018) and MRSA bacteremia brought in for anemia. Pt recevied transfusion and stabilized. SOB was active complaint throughout stay. He received HD with removal of 3kg given dx of TACO. HD modified for removal of 3.5L planned UF. Fluid restriction of 1.2L, < 2g Na diet. Torsemide 80 mg po qd also added. While CT findings demonstrate BL pleural effusions pulm assessed there would be no great benefit of acquiring a tap. HTN regimen: Nifedipine ER 90 mg PO QD, doxazosin 2 mg PO HS , Losartan 50 mg PO QD, torsemide 80 mg po qd. He was dc to SNF. Date of Discharge: 05/25/19 Minutes to complete discharge: 40 Discharge Summary Problems reviewed: Yes Reason For Visit: SEVERE ANEMIA Condition: Stable - Instructions Diet, Activity, Other Instructions: YOUR VISIT You came to the hospital because you were you were short of breath. You were admitted to the hospital for care of low blood count (low hemoglobin). While here you were seen by a office machine installer, geometrician, and an infectious disease specialist. You benefitted from dialysis. You are now stable and may return to your snf facility. MEDICATIONS Please continue to take your medications as prescribed. Medication change - Nefedipine 90 mg by mouth once a day (dose increased from 60 mg) New Medications - Hydralazine 25 mg by mouth three times a day. - Torsemide 80 mg by mouth every day. - please administer the levemir with breakfast and with dinner due to increased sensitivity to insulin and risk of hypoglycemia. ADDITIONAL CARE Please make an appointment to see a primary care provider 1 week from today. The [facility] residents clinic is located at [address] [place] [address]. Please call to make an appointment. If you would like to continue seeing Dr. Rivas Coon, please ask for a Saturday morning appointment. Please make an appointment to see a geometrician in 1 week. A referral has to Dr. Jansen has been provided. Please make an appointment to see a office machine installer in 1 week. A referral has to Dr. Butt has been provided. You will need a follow-up CT scan of the chest in 6-8 weeks from now to evaluate the enlarged lymphondes seen on CT CT scan You can follow with Dr. Wiley from GI for any further GI work up ( colonoscopy ) ADDITIONAL INFORMATION Please call [phone] or come directly to the emergency department if you experience unusual headache, vision change, shortness of breath, chest pain, numbness, tingling, loss of alertness/awareness, loss of function, unusual bleeding or any alarming symptoms. You need 4 Liters of oxygen through nasal cannula at all times. Referrals: Ru Barron MD [Staff Physician] - 1 Week Cinthia Wiley DO [Staff Physician] - 3 Weeks Nando Butt MD [Staff Physician] - 2 Weeks Miguel Jansen MD [Staff Physician] - 1 Week Disposition: [facility] - Home Medications Comprehensive Discharge Medication List: Ambulatory Orders Fluticasone Prop 0.05% Nasal [Flonase -] 1 - 2 spray NS DAILY #1 spray.pump Lidocaine 5% Patch [Lidoderm -] 1 patch TP DAILY patch 10/06/17 Lidocaine Patch Removal [Lidoderm Patch Removal] 1 each MC DAILY@2200 each 02/13 traZODone HCL [Desyrel -] 450 mg PO HS 04/07/19 Methadone [Dolophine -] 2.5 mg PO TID 04/16/19 Insulin Sliding Scale [Novolog Vial Sliding Scale -] 1 vial SQ TIDAC #1 vial Vitamin B Comp W-C [Nephro-Guilherme -] 1 tablet PO DAILY #30 tablet 04/20/19 Doxazosin Mesylate 4 mg PO DAILY 05/11/19 Gabapentin 100 mg PO BID 05/11/19 Nifedipine ER [Procardia XL -] 90 mg PO DAILY 05/11/19 Albuterol 0.083% Nebulizer Coret[place] [Ventolin 0.083% Nebulizer Soln -] 1 neb NEB Q6H PRN 30 Days vial 05/23/19 Bacitracin - [Bacitracin Topical Ointment -] 1 applic TP BID tube 05/23/19 Insulin Detemir [Levemir Flextouch] 3 unit SQ BID 30 Days #3 insuln.pen Nifedipine ER [Procardia XL -] 90 mg PO DAILY tab.er.24 05/23/19 Tiotropium [place] [Spiriva Respimat] 2 puff IH DAILY inhaler 05/23/19 Torsemide [Demadex -] 80 mg PO DAILY 30 Days #30 tablet 05/23/19 Vitamin A & D Top Oint - 1 applic TP Q6HPO tube 05/23/19 hydrALAZINE HCL [Apresoline -] 25 mg PO TID 30 Days #90 tablet 05/23/19 This patient is new to me today: No Emergency Visit: No Critical Care patient: No - Discharge Referral Referred to [facility] Med [facility].C[facility] No ATTENDING PHYSICIAN STATEMENT I saw and evaluated the patient. I reviewed the resident's note and discussed the case with the resident. I agree with the resident's findings and plan as documented. SUBJECTIVE: OBJECTIVE: ASSESSMENT AND PLAN:
== END 2019-05-24 14:20 | DRG 291 ==
LOC: JER 07:15 → JERBED 09:34 → J8W 15:31 → J6S 05-11 14:35
PROVIDERS: ADMIT Internal Medicine; ATTEND Internal Medicine
PROC: 30233N1 Transfusion of Nonautologous Red Blood Cells into Peripheral Vein, Percutaneous Approach (ICD-10-PCS; principal; 2019-05-09)
PROC: 5A1D70Z Performance of Urinary Filtration, Intermittent, Less than 6 Hours Per Day (ICD-10-PCS; 2019-05-23)
DX: I13.2 Hypertensive heart and chronic kidney disease with heart failure and with stage 5 chronic kidney disease, or end stage renal disease (principal); N18.6 End stage renal disease; I50.33 Acute on chronic diastolic (congestive) heart failure; J81.0 Acute pulmonary edema; I26.99 Other pulmonary embolism without acute cor pulmonale; J98.11 Atelectasis; I10 Essential (primary) hypertension; Z99.2 Dependence on renal dialysis; E11.22 Type 2 diabetes mellitus with diabetic chronic kidney disease; D63.1 Anemia in chronic kidney disease; E87.71 Transfusion associated circulatory overload; E87.5 Hyperkalemia; E11.42 Type 2 diabetes mellitus with diabetic polyneuropathy; E11.649 Type 2 diabetes mellitus with hypoglycemia without coma; J20.9 Acute bronchitis, unspecified
CPT/HCPCS: 36415; 36430; 36511; 36600; 71045-TC-FY; 71250-TC; 71275-TC; 76000-TC-FY; 80048; 80053; 81003; 82272; 82375; 82550; 82668; 82728; 82803; 82962; 83010; 83050; 83540; 83550; 83615; 83735; 84100; 84484; 85025; 85027; 85044; 85379; 85610; 85730; 86803; 86850; 86900; 86901; 86922; 87086; 87340; 93005; 93010; 93970-TC; 94640; 94761; 99285-25; G0463-25; J0885; J1644; J1756; P9038; P9058; Q9967

== ENCOUNTER 2019-05-28 08:10 | Inpatient (IN) | payer OTHER ==
[2019-05-28 08:46] VITALS: BMI 26.2
--- NOTE | 2019-05-28 09:09 | PDOC ---
History of Present Illness - General Chief Complaint: Dialysis Shunt Problem Stated Complaint: DIALYSIS PORT PROBLEM Time Seen by Provider: 05/28/19 08:18 History Source: Patient Exam Limitations: No Limitations - History of Present Illness Initial Comments: 05/28/19 09:25 63yo M w/ PMHx ESRD on HD T//S, IDDM, HTN, b/l BKA (R BKA done during 04/06- admission), diastolic HF, anemia, MRSA bacteremia 2/2 osteomyelitis presenting w dialysis shunt access blockage and hypoglycemia BG 30 this morning at dialysis center. Currently complaining of epigastric gas pain. Denies lightheadedness, chest pain, SOB, LOC. Art Manager - Dr Dill/Addy Past History - Past Medical History Allergies/Adverse Reactions: Allergies Allergy/AdvReac Type Severity Reaction Status Date / Time shellfish derived Allergy Severe "HIVES" Verified 05/28/19 08:12 No Known Drug Allergies Allergy Verified 05/28/19 08:12 Home Medications: Ambulatory Orders Fluticasone Prop 0.05% Nasal [Flonase -] 1 - 2 spray NS DAILY #1 spray.pump Lidocaine 5% Patch [Lidoderm -] 1 patch TP DAILY patch 10/06/17 traZODone HCL [Desyrel -] 450 mg PO HS 04/07/19 Vitamin B Comp W-C [Nephro-Guilherme -] 1 tablet PO DAILY #30 tablet 04/20/19 Doxazosin Mesylate 4 mg PO DAILY 05/11/19 Gabapentin 100 mg PO BID 05/11/19 Nifedipine ER [Procardia XL -] 90 mg PO DAILY 05/11/19 Albuterol 0.083% Nebulizer Coret[place] [Ventolin 0.083% Nebulizer Soln -] 1 neb NEB Q6H PRN 30 Days vial 05/23/19 Bacitracin - [Bacitracin Topical Ointment -] 1 applic TP BID tube 05/23/19 Torsemide [Demadex -] 80 mg PO DAILY 30 Days #30 tablet 05/23/19 Hydralazine HCl 25 mg PO TID 05/28/19 Insulin Detemir [Levemir Flextouch] 3 unit SQ BID 05/28/19 Insulin Lispro [Admelog Solostar] 1 units SQ ASDIR 05/28/19 Methadone HCl 2.5 mg PO TID 05/28/19 Tiotropium [place] [Spiriva Respimat] 1 inh .ROUTE BID 05/28/19 Anemia: Yes COPD: Yes CHF: No Diabetes: Yes Dialysis: Yes HTN: Yes Thyroid Disease: No Lung CA: Yes (depression) - Surgical History Abdominal Surgery: Yes (HERNIA) Orthopedic Surgery: Yes (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, rt gr toe amputation) - Immunization History Immunization Up to Date: Yes - Psycho Social/Smoking Cessation Hx Smoking Status: No Smoking History: Unknown if ever smoked Have you smoked in the past 12 months: Yes Number of Cigarettes Smoked Daily: 1 If you are a former smoker, when did you quit?: FEB 2019 Cigars Per Day: 1 'Breaking Loose' booklet given: 09/24/17 Hx Alcohol Use: No Drug/Substance Use Hx: No Substance Use Type: None Hx Substance Use Treatment: No Review of Systems - Review of Systems Constitutional: No: Chills, Fever HEENTM: No: Eye Pain, Nose Pain Respiratory: No: Cough, Shortness of Breath Cardiac (ROS): No: Chest Pain, Palpitations ABD/GI: No: Abdominal Distended, Constipated, Diarrhea, Nausea, Vomiting : No: Burning, Dysuria Musculoskeletal: No: Back Pain, Neck Pain Integumentary: No: Bruising, Flushing Neurological: No: Headache, Seizure Psychiatric: No: Anxiety, Depression Endocrine: No: Intolerance to Cold, Intolerance to Heat Hematologic/Lymphatic: No: Anemia, Blood Clots *Physical Exam - Vital Signs Last Vital Signs Temp Pulse Resp BP Pulse Ox 98 F 100 H 18 162/86 97 05/28/19 08:12 05/28/19 08:12 05/28/19 08:12 05/28/19 08:12 05/28/19 08:12 - Physical Exam General Appearance: Yes: Nourished, Appropriately Dressed. No: Apparent Distress HEENT: positive: EOMI, LUIS ALFREDO, Normal Voice, Hearing Grossly Normal. negative: Scleral Icterus (R), Scleral Icterus (L) Respiratory/Chest: positive: Lungs Clear, Normal Breath Sounds. negative: Chest Tender, Respiratory Distress Cardiovascular: positive: Regular Rhythm, Regular Rate, S1, S2. negative: Edema , Murmur Extremity: positive: Other (L dialysis shunt. No thrill palpated/auscultated. Woosh blood flow auscultated. L arm 2+ radial pulses, normal sensation, full strength,no sensory deficits) Integumentary: positive: Normal Color Neurologic: positive: store keeper II-XII NML intact, Fully Oriented, Alert, Normal Response, Motor Strength 5/5, Responsive. negative: Sensory Deficit, Confused, Disoriented ED Treatment Course - LABORATORY CBC & Chemistry Diagram: 05/28/19 10:00 05/28/19 09:50 Medical Decision Making - Medical Decision Making 05/28/19 09:51 EKG sinus rhythm w 1st deg block, ID 220, HR 83, QTc 460,unchanged from prior L arm US shows extensive thrombus within the draining vein of AV dialysis fistula with minimal flow around the thrombus. Feeding artery is patent Hgb 8.4 (baseline), K 5.4 --- 63yo M w/ PMHx ESRD on HD T//S, IDDM, HTN, b/l BKA (R BKA done during 04/06- admission), diastolic HF, anemia, MRSA bacteremia 2/2 osteomyelitis presenting w dialysis shunt access blockage and hypoglycemia. Arm neurovascular intact, no thrill felt/auscultated at fistula, wooshing blood flow heard. L arm US showed extensive thrombus within the draining vein of AV dialysis fistula with minimal flow around the thrombus. Feeding artery is patent Hypoglycemia BG 30 d/t inadequate eating. Ate ice cream, breakfast tray, soda in ED, repeat BG 106. Consulted Dr Daly vascular. Waiting for call back Admitted m/s Dr Manley for dialysis shunt blockage revision Discharge - Discharge Information Problems reviewed: Yes Clinical Impression/Diagnosis: AV fistula thrombosis Qualifiers: Encounter type: initial encounter Qualified Code(s): T82.868A - Thrombosis due to vascular prosthetic devices, implants and grafts, initial encounter Condition: Good - Follow up/Referral - Patient Discharge Instructions - Post Discharge Activity
[2019-05-28 10:19] LABS: BASO % 1.1 % (0-2.0); EOS % 5.4 % (0-4.5); HEMATOCRIT 26.2 % (35.4-49); HEMOGLOBIN 8.4 GM/dL (11.7-16.9); LYMPH % 12.4 % (8-40); MCH 28.6 pg (25.7-33.7); MCHC 32.3 g/dl (32.0-35.9); MEAN CELL VOLUME 88.7 fl (80-96); MEAN PLT VOLUME 7.3 fl (7.5-11.1); MONO % 7.5 % (3.8-10.2); NEUT % 73.6 % (42.8-82.8); PLATELET COUNT 521 K/MM3 (134-434); RBC 2.95 M/mm3 (4.00-5.60); RDW 20.2 % (11.9-15.9); WHITE BLOOD COUNT 8.4 K/mm3 (4.0-10.0)
[2019-05-28 10:52] LABS: ALBUMIN 3.4 g/dl (3.4-5.0); BILIRUBIN,TOTAL 0.4 mg/dL (0.2-1); BLOOD UREA NITROGEN 85.6 mg/dL (7-18); CALCIUM 7.8 mg/dL (8.5-10.1); CREATININE 7.2 mg/dL (0.55-1.3); POTASSIUM 5.4 mmol/L (3.5-5.1); TOT PROT 7.9 g/dl (6.4-8.2)
--- NOTE | 2019-05-28 11:51 | PDOC ---
Documentation entered by Rosemary Sanchez SCRIBE, acting as scribe for Mara Rodas MD. Mara Rodas MD: This documentation has been prepared by the Laura shelton Nirvannie, SCRIBE, under my direction and personally reviewed by me in its entirety. I confirm that the documentation accurately reflects all work, treatment, procedures, and medical decision making performed by me. Attending Attestation - Resident Resident Name: LaloAdrián - ED Attending Attestation I have performed the following: I have examined & evaluated the patient, The case was reviewed & discussed with the resident, I agree w/resident's findings & plan, Exceptions are as noted - HPI HPI: 05/28/19 11:18 The patient is a 63 year old male, with a significant past medical history of ESRD (on HD T//Sat), IDDM, HTN, blt BKA, diastolic HF, MRSA bacteremia osteomyelitis, anemia, and recently admitted to [facility] for anemia on 05/09/19- who presents to the emergency department blocked dialysis shunt. As per patient, he was at dialysis today at which time his shunt was found to be blocked and he was observed to have a glucose level of 30. While in the ED, patient only complains of epigastric abdominal pain. last dialysis was on Saturday 5 days ago. missed his session two days ago because unable to get the lift to get him into the dialysis chair. currently no complaints of sob or cp. He denies shortness of breath, chest pain, nausea, vomiting, or diarrhea. Allergies: NKDA, Shellfish Past surgical history: Bilateral BKA. Primary Care Physician: Dr. Riggs (Clinic) Delineator - Dr Aniyah Boyd 05/28/19 11:48 - Physicial Exam PE: 05/28/19 11:49 awake alert lungs faint wheeze expiratory on right . heart rrr on mrg abd soft nt nd ext wwp. left upper ext fistula no erythema. no palp bruit. bilat lower ext bka. - Medical Decision Making 05/28/19 11:50 63 yo male h/o dm htn esrd T R S here with clotted fistula plan us. labs cxr ekg. will require admisison for declotting confirmed clot on us. will d/w dr vegas. will admit to dr Guerrero. Heart Score/ECG Review #1 General ECG Interpretation: Sinus Rhythm, Normal Rate (83), Normal Intervals, No acute ischemic changes
--- NOTE | 2019-05-28 11:52 | PN ---
Progress Note (short form) - Note Progress Note: Renal follow up for ESRD on HD Mr. Judge is a 63 year old gentleman with history of ESRD on HD (TTS), Hypertension, PVD s/p bilateral BKA presented from outpatient dialysis unit with clotted AVF. Pt last had dialysis on Saturday here in the hospital. He missed dialysis on Saturday as they could not transfer him into the chair at the center. He was given kayexalte yesterday at the [place]. He denies any acute complaints. No shortness of breath, chest pain, fever, chills, N/V. He makes urine. Home Medications Medication Instructions Recorded Fluticasone Prop 0.05% Nasal 1 - 2 spray NS DAILY #1 spray.pump 08/23/17 [Flonase -] Lidocaine 5% Patch [Lidoderm -] 1 patch TP DAILY patch 10/06/17 traZODone HCL [Desyrel -] 450 mg PO HS 04/07/19 Vitamin B Comp W-C [Nephro-Guilherme -] 1 tablet PO DAILY #30 tablet 04/20/19 Doxazosin Mesylate 4 mg PO DAILY 05/11/19 Gabapentin 100 mg PO BID 05/11/19 Nifedipine ER [Procardia XL -] 90 mg PO DAILY 05/11/19 Albuterol 0.083% Nebulizer Coretta 1 neb NEB Q6H PRN 30 Days vial 05/23/19 [Ventolin 0.083% Nebulizer Soln -] Bacitracin - [Bacitracin Topical 1 applic TP BID tube 05/23/19 Ointment -] Torsemide [Demadex -] 80 mg PO DAILY 30 Days #30 tablet 05/23/19 Hydralazine HCl 25 mg PO TID 05/28/19 Insulin Detemir [Levemir Flextouch] 3 unit SQ BID 05/28/19 Insulin Lispro [Admelog Solostar] 1 units SQ ASDIR 05/28/19 Methadone HCl 2.5 mg PO TID 05/28/19 Tiotropium [place] [Spiriva 1 inh .ROUTE BID 05/28/19 Respimat] Vital Signs Temperature 98 F 05/28/19 08:12 Pulse Rate 100 H 05/28/19 08:12 Respiratory Rate 18 05/28/19 08:12 Blood Pressure 162/86 05/28/19 08:12 O2 Sat by Pulse Oximetry (%) 97 05/28/19 08:12 Intake & Output 05/25/19 05/26/19 05/27/19 05/28/19 23:59 23:59 23:59 23:59 Weight 76 kg NAD awake and alert neck supple, no JVD RRR CTA, no rales or wheeze soft NT/ND bilateral BKA. No sacral edema left arm AVF, no thrill or bruit CBC, BMP 05/28/19 10:00 05/28/19 09:50 Current Medications Dextrose (D5w -) 1,000 mls @ 42 mls/hr IV .[id number] IGGY 63 year old gentleman with history of ESRD on HD (TTS), Hypertension, PVD s/p bilateral BKA presented from outpatient dialysis unit with clotted AVF. 1. ESRD on HD 2. Non-functioning AVF 3. Hypertension 4. CHF now euvolemic 5. Mild hyperkalemia US doppler of AVF shows thrombosis Consulted vascular surgery: Dr. Daly to eval patient for possible declott no overt hyperkalemia, acidosis or fluid overload to warrant emergent dialysis s/p kayexalate this am Will keep NPO for now pending vascular soha will start D5W as pt had episode of hypoglycemia this am Maintain on home antihypertensive medications Case discussed with Vascular and ER resident Miguel Jansen DO
[2019-05-28] MEDS: DEXTROSE 5%-WATER - 1,000 ML IV SCH ×2 (12:15→22:31)
[2019-05-28] MEDS ORDERED: ALBUTEROL SO4 0.083% IH SOL 2.5 MG/3 ML VIAL.NEB. NEB PRN (13:22)
[2019-05-28] MEDS ORDERED: hydrALAZINE HCL 25 MG TABLET (FP) ONE (14:49)
[2019-05-28] MEDS ORDERED: METHADONE HCL 5 MG TABLET ONE (14:49)
[2019-05-28] MEDS: hydrALAZINE HCL 25 MG TABLET (FP) PO SCH ×2 (14:50→22:29)
[2019-05-28] MEDS: METHADONE HCL 5 MG TABLET PO SCH ×2 (14:50→22:29)
--- NOTE | 2019-05-28 15:56 | CON.CARD ---
Consult Consult Specialty:: Cardiology Referred by:: Yony Reason for Consultation:: Preop - History of Present Illness Chief Complaint: AVF clotted History of Present Illness: 63 year old male with a pmhx of ESRD on HD, dm, htn, b/l BKA, PAD, diastolic CHF , CAD on NST in past, and anemia sent for blockage of AVF and noted to have hypoglycemia treated in the ER. Denies any chest pain or sob. No pnd, orthopnea, or edema. No near syncope. Planned for AVF declotting EKG 05/23/19: sinus rhythm at 92bpm, iRBBB, no ischemic changes Echocardiogram 04/08/19: nl lvef and no significant valve disease NST 09/2018 moderate inferior ischemia. 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: Peripheral Neuropathy Cardio/Vascular: Yes: CAD, HTN Gastrointestinal: Yes: GERD Renal/: Yes: Renal Failure, Renal Inusuff, Hemodialysis Infectious Disease: Yes: Other (osteomyelitis) Psych: Yes: Depression Musculoskeletal: Yes: Other (chronic pain) Rheumatology: Yes: Other (history of osteomyelitis) Endocrine: Yes: Diabetes Mellitus - Past Surgical History Past Surgical History: Yes: Amputation (transmetatarsal of Left foot) - Alcohol/Substance Use Hx Alcohol Use: No Number of Drinks Daily: 2 (weekends) History of Substance Use: reports: None - Smoking History Smoking history: Unknown if ever smoked Have you smoked in the past 12 months: Yes Aproximately how many cigarettes per day: 1 If you are a former smoker, when did you quit?: FEB 2019 - Social History Usual Living Arrangement: Alone ADL: Support Services History of Recent Travel: No Home Medications - Allergies Allergies/Adverse Reactions: Allergies Allergy/AdvReac Type Severity Reaction Status Date / Time shellfish derived Allergy Severe "HIVES" Verified 05/28/19 08:12 No Known Drug Allergies Allergy Verified 05/28/19 08:12 - Home Medications Home Medications: Ambulatory Orders Fluticasone Prop 0.05% Nasal [Flonase -] 1 - 2 spray NS DAILY #1 spray.pump Lidocaine 5% Patch [Lidoderm -] 1 patch TP DAILY patch 10/06/17 traZODone HCL [Desyrel -] 450 mg PO HS 04/07/19 Vitamin B Comp W-C [Nephro-Guilherme -] 1 tablet PO DAILY #30 tablet 04/20/19 Doxazosin Mesylate 4 mg PO DAILY 05/11/19 Gabapentin 100 mg PO BID 05/11/19 Nifedipine ER [Procardia XL -] 90 mg PO DAILY 05/11/19 Albuterol 0.083% Nebulizer Coretta [Ventolin 0.083% Nebulizer Soln -] 1 neb NEB Q6H PRN 30 Days vial 05/23/19 Bacitracin - [Bacitracin Topical Ointment -] 1 applic TP BID tube 05/23/19 Torsemide [Demadex -] 80 mg PO DAILY 30 Days #30 tablet 05/23/19 Hydralazine HCl 25 mg PO TID 05/28/19 Insulin Detemir [Levemir Flextouch] 3 unit SQ BID 05/28/19 Insulin Lispro [Admelog Solostar] 1 units SQ ASDIR 05/28/19 Methadone HCl 2.5 mg PO TID 05/28/19 Tiotropium [place] [Spiriva Respimat] 1 inh .ROUTE BID 05/28/19 Vital Signs: Vital Signs Temperature 97.6 F 05/28/19 13:04 Pulse Rate 90 05/28/19 13:04 Respiratory Rate 18 05/28/19 13:04 Blood Pressure 171/98 H 05/28/19 13:04 O2 Sat by Pulse Oximetry (%) 96 05/28/19 13:04 Constitutional: Yes: No Distress Neck: Yes: Supple Respiratory: Yes: CTA Bilaterally Gastrointestinal: Yes: Soft Cardiovascular: Yes: Regular Rate and Rhythm JVD: No Carotid Bruit: No Heart Sounds: Yes: S1, S2 Murmur: Yes: Systolic Murmur (2/6 RUSB) Edema: No - Other Data Labs, Other Data: CBC, BMP 05/28/19 10:00 05/28/19 09:50 Assessment/Plan 63 year old male with a pmhx of ESRD on HD, dm, htn, b/l BKA, PAD, diastolic CHF , CAD on NST in past, and anemia sent for blockage of AVF and noted to have hypoglycemia treated in the ER. Denies any chest pain or sob. No pnd, orthopnea, or edema. No near syncope. Planned for AVF declotting EKG 05/23/19: sinus rhythm at 92bpm, iRBBB, no ischemic changes Echocardiogram 04/08/19: nl lvef and no significant valve disease NST 09/2018 moderate inferior ischemia. 1) Preop Patient for AVF declotting. Patient with known ESRD, PAD, htn, dm, diastolic CHF, anemia, and CAD on NST in past. No active chest pain. No significant chf on exam. EKG on 05/23/19 with no acute ischemic changes. Moderate cardiac risk for procedure. No cardiac contraindications. director long term care needs follow up with clinical resource director and as an outpatient would consider beta bhupendra/aspirin/statin. Monitor BP if running high has room to increase his nifedipine and hydralazine dose.
--- NOTE | 2019-05-28 16:03 | SPA.PREOP ---
- PRE-OP NOTE Dx: Clotted AV fistula Planned Procedure: Venogram and suction thrombectomy Surgeon: Al Daly DO Last Vital Signs Temp Pulse Resp BP Pulse Ox 97.6 F 90 18 171/98 H 96 05/28/19 13:04 05/28/19 13:04 05/28/19 13:04 05/28/19 13:04 05/28/19 13:04 Lab Results WBC 8.4 K/mm3 (4.0-10.0) 05/28/19 10:00 RBC 2.95 M/mm3 (4.00-5.60) L 05/28/19 10:00 Hgb 8.4 GM/dL (11.7-16.9) L 05/28/19 10:00 Hct 26.2 % (35.4-49) L 05/28/19 10:00 MCV 88.7 fl (80-96) 05/28/19 10:00 MCHC 32.3 g/dl (32.0-35.9) 05/28/19 10:00 RDW 20.2 % (11.9-15.9) H 05/28/19 10:00 Plt Count 521 K/MM3 (134-434) H 05/28/19 10:00 Sodium 140 mmol/L (136-145) 05/28/19 09:50 Potassium 5.4 mmol/L (3.5-5.1) H 05/28/19 09:50 Chloride 105 mmol/L (98-107) 05/28/19 09:50 Carbon Dioxide 22 mmol/L (21-32) 05/28/19 09:50 Anion Gap 12 MMOL/L (8-16) 05/28/19 09:50 BUN 85.6 mg/dL (7-18) H 05/28/19 09:50 Creatinine 7.2 mg/dL (0.55-1.3) H 05/28/19 09:50 Random Glucose 30 mg/dL (74-106) L* 05/28/19 09:50 Calcium 7.8 mg/dL (8.5-10.1) L 05/28/19 09:50 - ASSESSMENT/PLAN 1. Make NPO after midnight except po meds 2. GI/DVT PPX 3. Medical optimization / clearance 4. Consent to be obtained by surgeon after risks, benefits and alternatives discussed with patient and or Health Care Proxy.
[2019-05-28] MEDS: INSULIN SLIDING SCALE (NOVOLOG) 1 VIAL SQ SCH ×2 (16:14→22:30)
[2019-05-28] MEDS ORDERED: traZODone HCL 50 MG TABLET (FP) ONE (21:38)
[2019-05-28] MEDS ORDERED: traZODone HCL 100 MG TABLET (FP) ONE (21:38)
[2019-05-28] MEDS ORDERED: traZODone HCL 150 MG TABLET PO SCH (22:00)
[2019-05-28] MEDS ORDERED: LIDOCAINE PATCH REMOVAL MC SCH (22:00)
[2019-05-28] MEDS ORDERED: TRAZODONE HCL PO SCH (22:00)
[2019-05-28] MEDS ORDERED: INSULIN DETEMIR SQ SCH (22:00)
[2019-05-28] MEDS ORDERED: traZODone HCL 100 MG TABLET (FP) PO SCH (22:00)
[2019-05-28] MEDS: BACITRACIN 15 GM TUBE TOPICAL OINTMENT TP SCH (22:29)
[2019-05-28] MEDS: GABAPENTIN 100 MG CAPSULE PO SCH (22:30)
[2019-05-29] MEDS: METHADONE HCL 5 MG TABLET PO SCH ×3 (06:23→21:52)
[2019-05-29] MEDS: hydrALAZINE HCL 25 MG TABLET (FP) PO SCH ×3 (06:23→21:52)
[2019-05-29] MEDS: INSULIN SLIDING SCALE (NOVOLOG) 1 VIAL SQ SCH ×3 (06:24→21:54)
[2019-05-29] MEDS ORDERED: PT OWN MED DRAWER 7, Y5N ONE ×2 (08:31→20:37)
[2019-05-29] MEDS ORDERED: NIFEdipine E.R. 90 MG TABLET PO SCH (10:00)
[2019-05-29] MEDS ORDERED: traZODone HCL 150 MG TABLET PO SCH (10:00)
[2019-05-29] MEDS ORDERED: TIOTROPIUM BROMIDE 2.5 MCG (SPIRIVA) RESPIMAT INHALER IH SCH (10:00)
[2019-05-29] MEDS ORDERED: FLUTICASONE PROP 0.05% 16 GM NASAL SPRAY NS SCH (10:00)
[2019-05-29] MEDS ORDERED: VITAMIN B COMP W-C 1 EA TABLET PO SCH (10:00)
[2019-05-29] MEDS ORDERED: LIDOCAINE 5% TOPICAL PATCH TP SCH (10:00)
[2019-05-29] MEDS ORDERED: TORSEMIDE 20 MG TABLET (FP) PO SCH (10:00)
[2019-05-29] MEDS ORDERED: DOXAZOSIN MESYLATE 4 MG TABLET PO SCH (10:00)
[2019-05-29] MEDS ORDERED: HEPARIN NA (PORCINE) 5,000 UNITS/ML 1ML VIAL ONE (10:13)
[2019-05-29] MEDS ORDERED: SODIUM CHLORIDE 1,000 ML IV SCH ×2 (10:15→14:57)
[2019-05-29] MEDS ORDERED: ONDANSETRON 4 MG/2 ML VIAL IVPUSH PRN ×2 (10:15→14:57)
[2019-05-29] MEDS ORDERED: MIDAZOLAM HCL 2 MG/2 ML SINGLE DOSE VIAL ONE (10:21)
[2019-05-29] MEDS: BACITRACIN 15 GM TUBE TOPICAL OINTMENT TP SCH ×3 (10:21→22:55)
[2019-05-29] MEDS: GABAPENTIN 100 MG CAPSULE PO SCH ×2 (10:21→21:53)
[2019-05-29] MEDS ORDERED: LIDOCAINE HCL/PF 2% SDV 5ML VIAL ONE (10:22)
[2019-05-29] MEDS ORDERED: fentaNYL CITRATE 250 MCG/5 ML VIAL ONE (10:22)
[2019-05-29] MEDS ORDERED: SUCCINYLCHOLINE CHLORIDE 200 MG/10 ML SYRINGE ONE (10:22)
[2019-05-29] MEDS ORDERED: PROPOFOL 20 ML ONE ×2 (10:22)
--- NOTE | 2019-05-29 10:30 | HP ---
Admitting History and Physical - Primary Care Physician PCP: Antonio Bhakta - Admission Chief Complaint: Dialysis Shunt Malfunction History of Present Illness: Patient is a 63 y/o male with past medical history of ESRD on HD T-Th-S, HTN, B/ L BKA, Diastolic CHF, Anemia, MRSA Bactermia s/s osteomylitis. Patient presented from dialysis center to [facility] for dialysis shunt malfunction and hypoglycemic with BS 30mg/dL. In ER Arterial Duplex of shunt performed and showed extensive thrombus within the draining vein of AV dialysis fistula. Vascular and Renal consulted. History Source: Patient Limitations to Obtaining History: No Limitations - Past Medical History FIRE RANGER: Yes: Peripheral Neuropathy Cardiovascular: Yes: CAD, HTN Gastrointestinal: Yes: GERD Renal/: Yes: Renal Failure, Renal Inusuff, Hemodialysis Heme/Onc: Yes: Anemia Infectious Disease: Yes: Other (osteomyelitis) Psych: Yes: Depression Musculoskeletal: Yes: Other (chronic pain) Rheumatology: Yes: Other (history of osteomyelitis) Endocrine: Yes: Diabetes Mellitus - Past Surgical History Past Surgical History: Yes: Amputation (transmetatarsal of Left foot) - Smoking History Smoking history: Former smoker Have you smoked in the past 12 months: No Aproximately how many cigarettes per day: 1 If you are a former smoker, when did you quit?: FEB 2019 - Alcohol/Substance Use Hx Alcohol Use: No Number of Drinks Daily: 2 (weekends) History of Substance Use: reports: None - Social History ADL: Support Services History of Recent Travel: No Home Medications - Allergies Allergies/Adverse Reactions: Allergies Allergy/AdvReac Type Severity Reaction Status Date / Time shellfish derived Allergy Severe "HIVES" Verified 05/28/19 08:12 No Known Drug Allergies Allergy Verified 05/28/19 08:12 - Home Medications Home Medications: Ambulatory Orders Fluticasone Prop 0.05% Nasal [Flonase -] 1 - 2 spray NS DAILY #1 spray.pump Lidocaine 5% Patch [Lidoderm -] 1 patch TP DAILY patch 10/06/17 traZODone HCL [Desyrel -] 450 mg PO HS 04/07/19 Vitamin B Comp W-C [Nephro-Guilherme -] 1 tablet PO DAILY #30 tablet 04/20/19 Doxazosin Mesylate 4 mg PO DAILY 05/11/19 Gabapentin 100 mg PO BID 05/11/19 Nifedipine ER [Procardia XL -] 90 mg PO DAILY 05/11/19 Albuterol 0.083% Nebulizer Coretta [Ventolin 0.083% Nebulizer Soln -] 1 neb NEB Q6H PRN 30 Days vial 05/23/19 Bacitracin - [Bacitracin Topical Ointment -] 1 applic TP BID tube 05/23/19 Torsemide [Demadex -] 80 mg PO DAILY 30 Days #30 tablet 05/23/19 Hydralazine HCl 25 mg PO TID 05/28/19 Insulin Detemir [Levemir Flextouch] 3 unit SQ BID 05/28/19 Insulin Lispro [Admelog Solostar] 1 units SQ ASDIR 05/28/19 Methadone HCl 2.5 mg PO TID 05/28/19 Tiotropium [place] [Spiriva Respimat] 1 inh .ROUTE BID 05/28/19 Review of Systems - Review of Systems Constitutional: reports: No Symptoms Eyes: reports: No Symptoms HENT: reports: No Symptoms Neck: reports: No Symptoms Cardiovascular: reports: No Symptoms Respiratory: reports: No Symptoms Gastrointestinal: reports: No Symptoms Genitourinary: reports: No Symptoms Breasts: reports: No Symptoms Reported Musculoskeletal: reports: No Symptoms Integumentary: reports: No Symptoms Neurological: reports: No Symptoms Endocrine: reports: No Symptoms Hematology/Lymphatic: reports: No Symptoms Psychiatric: reports: No Symptoms Physical Examination Vital Signs: Vital Signs Temperature 98.1 F 05/29/19 09:00 Pulse Rate 78 05/29/19 09:00 Respiratory Rate 20 05/29/19 09:00 Blood Pressure 164/86 05/29/19 09:00 O2 Sat by Pulse Oximetry (%) 95 05/29/19 09:00 Constitutional: Yes: No Distress, Calm Eyes: Yes: Conjunctiva Clear HENT: Yes: Atraumatic Neck: Yes: Supple Cardiovascular: Yes: Regular Rate and Rhythm Respiratory: Yes: Regular, CTA Bilaterally Gastrointestinal: Yes: Normal Bowel Sounds, Soft Musculoskeletal: Yes: WNL Extremities: Yes: Amputation (B/L BKA), Other (AV fistula LUE, + thrill) Edema: No Neurological: Yes: Alert, Oriented Psychiatric: Yes: Alert, Oriented Labs: CBC, BMP 05/28/19 10:00 05/28/19 09:50 Imaging - Results Ultrasound: Report Reviewed Problem List - Problems (1) AV fistula thrombosis Assessment/Plan: -Arterial Duplex of shunt performed and showed extensive thrombus within the draining vein of AV dialysis fistula -Vascular on board -POD #0 venogram, suction thrombectomy, venoplasty left avg -patient examined in PACU awake and alert, NAD -+thrill on auscultation Code(s): T82.868A - THROMBOSIS DUE TO VASCULAR PROSTH DEV/GRFT, INIT Qualifiers: Encounter type: initial encounter Qualified Code(s): T82.868A - Thrombosis due to vascular prosthetic devices, implants and grafts, initial encounter (2) Anemia Assessment/Plan: -Hg 8.4 -monitor Hg daily -transfuse for Hg <7.0 to avoid fluid overload -anemia profile Code(s): D64.9 - ANEMIA, UNSPECIFIED Qualifiers: (3) Below-knee amputation Assessment/Plan: -PT -fall precaution Code(s): S88.119A - COMPLETE TRAUM AMP AT LEV BETW KN & ANKL, UNSP LOW LEG, INIT (4) COPD with emphysema Assessment/Plan: -keep SpO 2>90% -O2 via NC prn for SOB -Bronchodilators -Spiriva Code(s): J43.9 - EMPHYSEMA, UNSPECIFIED (5) Diabetes mellitus Assessment/Plan: -BGM ACHS -holding Levemir due to episode of hypoglycemia -ISS -HgA1c -Endocrinology consult Code(s): E11.9 - TYPE 2 DIABETES MELLITUS WITHOUT COMPLICATIONS Qualifiers: Diabetes mellitus type: type 2 Diabetes mellitus half-way insulin 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 Diabetes mellitus complication status: without complication Qualified Code(s): E11.9 - Type 2 diabetes mellitus without complications (6) Diastolic CHF Assessment/Plan: -Demadex -1L fluid restriction -strict I&O -daily weights Code(s): I50.30 - UNSPECIFIED DIASTOLIC (CONGESTIVE) HEART FAILURE (7) ESRD (end stage renal disease) on dialysis Assessment/Plan: -Renal on board -dialysis on scheduled days -renal diet -BUN/Cr 85.6/7.2 -monitor renal function daily Code(s): N18.6 - END STAGE RENAL DISEASE; Z99.2 - DEPENDENCE ON RENAL DIALYSIS (8) HTN (hypertension) Assessment/Plan: -Hydralazine, Nifedipine, Cardura -low Na diet Code(s): I10 - ESSENTIAL (PRIMARY) HYPERTENSION Qualifiers: Assessment/Plan see problem list dvt ppx
[2019-05-29] MEDS ORDERED: ceFAZolin SODIUM 1 GM VIAL IVPB ONE ×2 (10:50→10:55)
[2019-05-29] MEDS ORDERED: ceFAZolin SODIUM 1 GM VIAL ONE (10:50)
[2019-05-29] MEDS: DEXTROSE 5%-WATER - 1,000 ML IV SCH (10:57)
[2019-05-29] MEDS ORDERED: LIDOCAINE HCL 1%, 10 MG/ML (20ML VIAL) NR ONE ×2 (11:03)
--- NOTE | 2019-05-29 11:38 | OP ---
Operative Note - Note: Operative Date: 05/29/19 Pre-Operative Diagnosis: clotted left avg Operation: venogram, suction thrombectomy, venoplasty left avg Post-Operative Diagnosis: Same as Pre-op Surgeon: Al Daly Anesthesia: Fractional Estimated Blood Loss (mls): 50 Operative Report Dictated: Yes
--- NOTE | 2019-05-29 14:22 | PN ---
Progress Note, Physician Chief Complaint: No complaints today Went for procedure History of Present Illness: 63 year old male with a pmhx of ESRD on HD, dm, htn, b/l BKA, PAD, diastolic CHF , CAD on NST in past, and anemia sent for blockage of AVF and noted to have hypoglycemia treated in the ER. Denies any chest pain or sob. No pnd, orthopnea, or edema. No near syncope. Planned for AVF declotting EKG 05/23/19: sinus rhythm at 92bpm, iRBBB, no ischemic changes Echocardiogram 04/08/19: nl lvef and no significant valve disease NST 09/2018 moderate inferior ischemia. - Current Medication List Current Medications: Active Medications Albuterol Sulfate (Ventolin 0.083% Nebulizer Soln -) 1 amp NEB Q6H PRN PRN Reason: SHORTNESS OF BREATH Bacitracin (Bacitracin -) 1 applic TP BID [facility] Last Admin: 05/29/19 10:21 Dose: Not Given Doxazosin Mesylate (Cardura -) 4 mg PO DAILY [facility] Last Admin: 05/29/19 10:21 Dose: Not Given Fentanyl (Sublimaze Injection -) 50 mcg IVPUSH [id number] PRN PRN Reason: PAIN-PACU ORDER X 4 DOSES ONLY Fluticasone Propionate (Flonase -) 1 spray NS DAILY [facility] Last Admin: 05/29/19 10:21 Dose: Not Given Gabapentin (Neurontin -) 100 mg PO BID [facility] Last Admin: 05/29/19 10:21 Dose: Not Given Heparin Sodium (Porcine) (Heparin -) 5,000 unit SQ BID [facility] Hydralazine HCl (Apresoline -) 25 mg PO TID [facility] Last Admin: 05/29/19 13:07 Dose: 25 mg Dextrose (D5w -) 1,000 mls @ 42 mls/hr IV Q23H [facility] Last Admin: 05/29/19 10:57 Dose: Not Given Sodium Chloride (Normal Saline -) 1,000 mls @ 42 mls/hr IV ASDIR [facility] Last Admin: 05/29/19 13:07 Dose: Not Given Insulin Aspart (Novolog Vial Sliding Scale -) 1 vial SQ ACHS [facility]; Protocol Last Admin: 05/29/19 10:57 Dose: Not Given Lidocaine (Lidoderm Patch -) 1 patch TP DAILY [facility] Last Admin: 05/29/19 10:21 Dose: Not Given Methadone HCl (Dolophine -) 2.5 mg PO TID [facility] Last Admin: 05/29/19 13:07 Dose: 2.5 mg Miscellaneous (Lidoderm Patch Removal) 1 each MC DAILY@2200 [facility] Last Admin: 05/28/19 22:30 Dose: 1 each Multivit/Ca Carb/B Cmplx/FA/Prenat (Nephro-Guilherme -) 1 tablet PO DAILY [facility] Last Admin: 05/29/19 10:21 Dose: Not Given Nifedipine (Procardia Xl -) 90 mg PO DAILY [facility] Last Admin: 05/29/19 10:21 Dose: Not Given Ondansetron HCl (Zofran Injection) 4 mg IVPUSH Q6H PRN PRN Reason: NAUSEA AND/OR VOMITING Tiotropium [place] (Spiriva Respimat) 2 puff IH DAILY [facility] Last Admin: 05/29/19 10:21 Dose: Not Given Torsemide (Demadex -) 80 mg PO DAILY [facility] Last Admin: 05/29/19 10:21 Dose: Not Given Trazodone HCl 400 mg/ (Trazodone HCl 50 mg) 450 mg PO HS [facility] Last Admin: 05/28/19 22:29 Dose: 450 mg - Objective Vital Signs: Vital Signs Temperature 97.6 F 05/29/19 12:54 Pulse Rate 83 05/29/19 12:54 Respiratory Rate 20 05/29/19 12:54 Blood Pressure 157/91 05/29/19 12:54 O2 Sat by Pulse Oximetry (%) 98 05/29/19 12:54 Constitutional: Yes: No Distress Neck: Yes: Supple Cardiovascular: Yes: Regular Rate and Rhythm, Murmur, S1, S2 Respiratory: Yes: CTA Bilaterally Edema: No (b/l aka) Labs: CBC, BMP 05/28/19 10:00 05/28/19 09:50 Assessment/Plan 63 year old male with a pmhx of ESRD on HD, dm, htn, b/l BKA, PAD, diastolic CHF , CAD on NST in past, and anemia sent for blockage of AVF and noted to have hypoglycemia treated in the ER. Denies any chest pain or sob. No pnd, orthopnea, or edema. No near syncope. Planned for AVF declotting EKG 05/23/19: sinus rhythm at 92bpm, iRBBB, no ischemic changes Echocardiogram 04/08/19: nl lvef and no significant valve disease NST 09/2018 moderate inferior ischemia. -s/p AVF declotting. 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 Monitor BP if running high has room to increase his nifedipine and hydralazine dose. Will sign off Have follow up with Dr. Mcclellan [phone]
[2019-05-29] MEDS ORDERED: SODIUM CHLORIDE 250 ML IV PRN (15:06)
[2019-05-29] MEDS ORDERED: EPOETIN ALFA-EPBX 10,000 UNIT/ML VIAL IVPUSH ONE (15:06)
--- NOTE | 2019-05-29 15:08 | PN ---
Progress Note (short form) - Note Progress Note: Renal follow up for ESRD on HD Seen and examined on dialysis. He offers no acute complaints no shortness of breath or chest pain s/p thrombectomy of AVF by vascular surgery this am BP stable on HD, UF goal 2.5L Access functioning well Vital Signs Temperature 98.5 F 05/29/19 13:55 Pulse Rate 78 05/29/19 15:00 Respiratory Rate 18 05/29/19 15:00 Blood Pressure 152/78 05/29/19 15:00 O2 Sat by Pulse Oximetry (%) 98 05/29/19 12:54 NAD RRR CTA, no rales or wheeze soft NT/ND bilateral BKA. No sacral edema left arm AVF CBC, BMP 05/28/19 10:00 Current Medications Albuterol Sulfate (Ventolin 0.083% Nebulizer Soln -) 1 amp NEB Q6H PRN PRN Reason: SHORTNESS OF BREATH Bacitracin (Bacitracin -) 1 applic TP BID [facility] Doxazosin Mesylate (Cardura -) 4 mg PO DAILY [facility] Fentanyl (Sublimaze Injection -) 50 mcg IVPUSH [id number] PRN PRN Reason: PAIN-PACU ORDER X 4 DOSES ONLY Fluticasone Propionate (Flonase -) 1 spray NS DAILY [facility] Gabapentin (Neurontin -) 100 mg PO BID [facility] Heparin Sodium (Porcine) (Heparin -) 5,000 unit SQ BID [facility] Hydralazine HCl (Apresoline -) 25 mg PO TID [facility] Dextrose (D5w -) 1,000 mls @ 42 mls/hr IV Q23H [facility] Sodium Chloride (Normal Saline -) 1,000 mls @ 42 mls/hr IV ASDIR [facility] Insulin Aspart (Novolog Vial Sliding Scale -) 1 vial SQ ACHS [facility]; Protocol Lidocaine (Lidoderm Patch -) 1 patch TP DAILY [facility] Methadone HCl (Dolophine -) 2.5 mg PO TID [facility] Miscellaneous (Lidoderm Patch Removal) 1 each MC DAILY@2200 [facility] Miscellaneous (Lidoderm Patch Removal) 1 each MC DAILY@2200 [facility] Multivit/Ca Carb/B Cmplx/FA/Prenat (Nephro-Guilherme -) 1 tablet PO DAILY [facility] Nifedipine (Procardia Xl -) 90 mg PO DAILY [facility] Ondansetron HCl (Zofran Injection) 4 mg IVPUSH Q6H PRN PRN Reason: NAUSEA AND/OR VOMITING Tiotropium [place] (Spiriva Respimat) 2 puff IH DAILY [facility] Torsemide (Demadex -) 80 mg PO DAILY [facility] Trazodone HCl 400 mg/ (Trazodone HCl 50 mg) 450 mg PO HS [facility] 63 year old gentleman with history of ESRD on HD (TTS), Hypertension, PVD s/p bilateral BKA presented from outpatient dialysis unit with clotted AVF. 1. ESRD on HD 2. Non-functioning AVF 3. Hypertension 4. CHF now euvolemic 5. Mild hyperkalemia 6. Anemia s/p thrombectomy by vascular surgery this am. Tolerating dialysis well. Maintain on home antihypertensive medications Stable for discharge to [place] following dialysis from renal perspective. Epogen to be given with dialysis today Miguel Jansen DO
[2019-05-29 15:51] LABS: ALBUMIN 2.8 g/dl (3.4-5.0); BILIRUBIN,TOTAL 0.5 mg/dL (0.2-1); BLOOD UREA NITROGEN 99.2 mg/dL (7-18); CALCIUM 7.3 mg/dL (8.5-10.1); MAGNESIUM 2.8 mg/dL (1.8-2.4); PHOSPHOROUS 8.1 mg/dL (2.5-4.9); TOT PROT 6.8 g/dl (6.4-8.2)
[2019-05-29 15:55] LABS: POTASSIUM 6.8 mmol/L (3.5-5.1)
[2019-05-29] MEDS ORDERED: INSULIN SLIDING SCALE (NOVOLOG) 1 VIAL SQ SCH (16:30)
[2019-05-29] MEDS ORDERED: INSULIN (NOVOLOG) ASPART 100 UNITS/ML 10ML VIAL ONE (17:46)
[2019-05-29 18:15] LABS: BLOOD UREA NITROGEN 45.2 mg/dL (7-18); CALCIUM 7.7 mg/dL (8.5-10.1); CREATININE 4.1 mg/dL (0.55-1.3); POTASSIUM 4.3 mmol/L (3.5-5.1)
--- NOTE | 2019-05-29 20:34 | CONSULT ---
Consult Consult Specialty:: endocrine Referred by:: virginia souza Reason for Consultation:: dmt2,esrd - History of Present Illness Chief Complaint: brittle dmt2 History of Present Illness: 63 y/o male with past medical history of DM, ESRD on HD T-Th-S, HTN, B/L BKA, Diastolic CHF, Anemia, MRSA Bactermia s/s osteomylitis. Patient presented from dialysis center to [facility] for dialysis shunt malfunction and hypoglycemic with BS 30mg/dL. In ER Arterial Duplex of shunt performed and showed extensive thrombus within the draining vein of AV dialysis fistula. Vascular and Renal consulted.he admits not able to control bs with diet and stable bs,because poor appetite and labile bs. despite taking insulin and eating healthy bs have not been stable - Past Medical History CLINICAL FELLOW: Yes: Peripheral Neuropathy Cardio/Vascular: Yes: CAD, HTN Gastrointestinal: Yes: GERD Renal/: Yes: Renal Failure, Renal Inusuff, Hemodialysis Infectious Disease: Yes: Other (osteomyelitis) Psych: Yes: Depression Musculoskeletal: Yes: Other (chronic pain) Rheumatology: Yes: Other (history of osteomyelitis) Endocrine: Yes: Diabetes Mellitus - Past Surgical History Past Surgical History: Yes: Amputation (transmetatarsal of Left foot) - Alcohol/Substance Use Hx Alcohol Use: No Number of Drinks Daily: 2 (weekends) History of Substance Use: reports: None - Smoking History Smoking history: Former smoker Have you smoked in the past 12 months: No Aproximately how many cigarettes per day: 1 If you are a former smoker, when did you quit?: FEB 2019 - Social History Usual Living Arrangement: Alone ADL: Support Services History of Recent Travel: No Home Medications - Allergies Allergies/Adverse Reactions: Allergies Allergy/AdvReac Type Severity Reaction Status Date / Time shellfish derived Allergy Severe "HIVES" Verified 05/28/19 08:12 No Known Drug Allergies Allergy Verified 05/28/19 08:12 - Home Medications Home Medications: Ambulatory Orders Fluticasone Prop 0.05% Nasal [Flonase -] 1 - 2 spray NS DAILY #1 spray.pump Lidocaine 5% Patch [Lidoderm -] 1 patch TP DAILY patch 10/06/17 traZODone HCL [Desyrel -] 450 mg PO HS 04/07/19 Vitamin B Comp W-C [Nephro-Guilherme -] 1 tablet PO DAILY #30 tablet 04/20/19 Doxazosin Mesylate 4 mg PO DAILY 05/11/19 Gabapentin 100 mg PO BID 05/11/19 Nifedipine ER [Procardia XL -] 90 mg PO DAILY 05/11/19 Albuterol 0.083% Nebulizer [place] [Ventolin 0.083% Nebulizer Soln -] 1 neb NEB Q6H PRN 30 Days vial 05/23/19 Bacitracin - [Bacitracin Topical Ointment -] 1 applic TP BID tube 05/23/19 Torsemide [Demadex -] 80 mg PO DAILY 30 Days #30 tablet 05/23/19 Hydralazine HCl 25 mg PO TID 05/28/19 Insulin Detemir [Levemir Flextouch] 3 unit SQ BID 05/28/19 Insulin Lispro [Admelog Solostar] 1 units SQ ASDIR 05/28/19 Methadone HCl 2.5 mg PO TID 05/28/19 Tiotropium [place] [Spiriva Respimat] 1 inh .ROUTE BID 05/28/19 Review of Systems - Review of Systems Constitutional: reports: Loss of Appetite, Weakness Eyes: reports: Blurred Vision HENT: reports: No Symptoms Neck: reports: Decreased ROM Cardiovascular: reports: Shortness of Breath Respiratory: reports: Exercise Intolerance, SOB on Exertion Genitourinary: reports: No Symptoms Breasts: reports: No Symptoms Reported Musculoskeletal: reports: Decreased ROM, Muscle Cramps Integumentary: reports: No Symptoms Neurological: reports: Numbness, Parasthesia, Unsteady Gait, Weakness Endocrine: reports: Unexplained Weight Loss Physical Exam Vital Signs: Vital Signs Temperature 98.5 F 05/29/19 13:55 Pulse Rate 82 05/29/19 17:20 Respiratory Rate 18 05/29/19 17:20 Blood Pressure 168/89 05/29/19 17:20 O2 Sat by Pulse Oximetry (%) 98 05/29/19 12:54 Constitutional: Yes: Anxious Eyes: Yes: EOM Intact HENT: Yes: Normocephalic Neck: Yes: Trachea Midline Cardiovascular: Yes: Tachycardia Respiratory: Yes: CTA Bilaterally Gastrointestinal: Yes: Normal Bowel Sounds ...Rectal Exam: Yes: Deferred Musculoskeletal: Yes: Back Pain, Joint Stiffness, Joint Swelling, Muscle Weakness Extremities: Yes: Delayed Capillary Refill Edema: No Neurological: Yes: Alert, Oriented Labs: CBC, BMP 05/28/19 10:00 05/29/19 17:29 Problem List - Problems (1) Type 2 diabetes mellitus with diabetic chronic kidney disease Problems reviewed: Yes Qualifiers: Chronic kidney disease stage: stage 4 (severe) Qualified Code(s): E11.22 - Type 2 diabetes mellitus with diabetic chronic kidney disease; N18.4 - Chronic kidney disease, stage 4 (severe); Z79.4 - senior care (current) use of insulin (2) 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 Problems reviewed: Yes Code(s): E11.311 - TYPE 2 DIABETES W UNSP DIABETIC RETINOPATHY W MACULAR EDEMA (3) AV fistula thrombosis Code(s): T82.868A - THROMBOSIS DUE TO VASCULAR PROSTH DEV/GRFT, INIT Qualifiers: Encounter type: initial encounter Qualified Code(s): T82.868A - Thrombosis due to vascular prosthetic devices, implants and grafts, initial encounter (4) Shortness of breath Code(s): R06.02 - SHORTNESS OF BREATH (5) Acute on chronic diastolic heart failure Code(s): I50.33 - ACUTE ON CHRONIC DIASTOLIC (CONGESTIVE) HEART FAILURE (6) Anemia Code(s): D64.9 - ANEMIA, UNSPECIFIED Qualifiers: (7) Below-knee amputation Code(s): S88.119A - COMPLETE TRAUM AMP AT LEV BETW KN & ANKL, UNSP LOW LEG, INIT (8) COPD with emphysema Code(s): J43.9 - EMPHYSEMA, UNSPECIFIED (9) Chronic pain Code(s): G89.29 - OTHER CHRONIC PAIN Assessment/Plan Current Active Problems uncontrolled dmt2,esrd AV fistula thrombosis (Acute) dmt2,ckd esrd htn ashd,cad Abnormal Lab Results 05/29/19 05/29/19 14:00 17:29 Sodium 134 L Potassium 6.8 H* BUN 99.2 H 45.2 H Creatinine 8.0 H* 4.1 H Random Glucose 234 H 285 H Calcium 7.3 L 7.7 L Phosphorus 8.1 H Magnesium 2.8 H TIBC 204 L Unsaturated IBC 149 L Alkaline Phosphatase 140 H Albumin 2.8 L Laboratory Results - last 24 hr 05/28/19 05/29/19 05/29/19 22:27 06:22 14:00 Sodium 134 L Potassium 6.8 H* Chloride 102 Carbon Dioxide 21 Anion Gap 10 BUN 99.2 H Creatinine 8.0 H* Est GFR (CKD-EPI)AfAm 7.48 Est GFR (CKD-EPI)NonAf 6.45 POC Glucometer 344 121 Random Glucose 234 H Calcium 7.3 L Phosphorus 8.1 H Magnesium 2.8 H Iron 55 TIBC 204 L Iron Saturation 26 Unsaturated IBC 149 L Total Bilirubin 0.5 AST 29 ALT 28 Alkaline Phosphatase 140 H Total Protein 6.8 Albumin 2.8 L TSH 1.36 D Thyroxine (T4) 7.7 05/29/19 05/29/19 16:29 17:29 Sodium 137 Potassium 4.3 Chloride 102 Carbon Dioxide 27 Anion Gap 8 BUN 45.2 H Creatinine 4.1 H Est GFR (CKD-EPI)AfAm 16.79 Est GFR (CKD-EPI)NonAf 14.48 POC Glucometer 291 Random Glucose 285 H Calcium 7.7 L Phosphorus Magnesium Iron TIBC Iron Saturation Unsaturated IBC Total Bilirubin AST ALT Alkaline Phosphatase Total Protein Albumin TSH Thyroxine (T4) plan: bgm qid novolog scale low dose gastroparesis brilltle dm levemir 3 unit bid as sensitivity is low ck hba1c
[2019-05-29] MEDS: TRAZODONE HCL PO SCH (21:52)
[2019-05-29] MEDS: HEPARIN NA (PORCINE) 5,000 UNITS/ML 1ML VIAL SQ SCH (21:53)
[2019-05-29] MEDS ORDERED: LIDOCAINE PATCH REMOVAL MC SCH (22:00)
[2019-05-29] MEDS: LIDOCAINE PATCH REMOVAL MC SCH (22:53)
[2019-05-29] MEDS: ALBUTEROL SO4 0.083% IH SOL 2.5 MG/3 ML VIAL.NEB. NEB PRN (23:37)
[2019-05-30] MEDS: hydrALAZINE HCL 25 MG TABLET (FP) PO SCH ×3 (06:20→21:53)
[2019-05-30] MEDS: INSULIN SLIDING SCALE (NOVOLOG) 1 VIAL SQ SCH ×4 (06:20→21:55)
[2019-05-30] MEDS: METHADONE HCL 5 MG TABLET PO SCH ×3 (06:20→21:52)
[2019-05-30] MEDS: INSULIN (LEVEMIR) 100 UNITS/ML UNITS SQ SCH (06:23)
[2019-05-30] MEDS ORDERED: SODIUM CHLORIDE 250 ML IV PRN (08:22)
[2019-05-30] MEDS ORDERED: HEPARIN NA (PORCINE) 5,000 UNITS/ML 1ML VIAL IVPUSH ONE (08:30)
--- NOTE | 2019-05-30 09:23 | PN ---
Progress Note (short form) - Note Progress Note: POD1 s/p AV fistulogram/thrombectomy for clotted AVF under MAC sedation. Pt is doing well today, is being dialyzed; VSS, no anesthetic issues/complications noted
[2019-05-30] MEDS: HEPARIN NA (PORCINE) 5,000 UNITS/ML 1ML VIAL IVPUSH SCH ×3 (09:50→11:27)
[2019-05-30] MEDS ORDERED: DEXTROSE 5%-WATER - 1,000 ML IV SCH (10:00)
[2019-05-30] MEDS: BACITRACIN 15 GM TUBE TOPICAL OINTMENT TP SCH ×2 (10:00→21:54)
[2019-05-30 10:03] LABS: HEMATOCRIT 24.3 % (35.4-49); HEMOGLOBIN 7.7 GM/dL (11.7-16.9); MCH 28.2 pg (25.7-33.7); MCHC 31.9 g/dl (32.0-35.9); MEAN CELL VOLUME 88.4 fl (80-96); MEAN PLT VOLUME 7.2 fl (7.5-11.1); PLATELET COUNT 423 K/MM3 (134-434); RBC 2.74 M/mm3 (4.00-5.60); WHITE BLOOD COUNT 6.9 K/mm3 (4.0-10.0)
--- NOTE | 2019-05-30 10:09 | PN ---
Progress Note, Physician - Current Medication List Current Medications: Active Medications Albuterol Sulfate (Ventolin 0.083% Nebulizer Soln -) 1 amp NEB Q6H PRN PRN Reason: SHORTNESS OF BREATH Last Admin: 05/29/19 23:37 Dose: 1 amp Bacitracin (Bacitracin -) 1 applic TP BID [facility] Last Admin: 05/29/19 22:55 Dose: Not Given Doxazosin Mesylate (Cardura -) 4 mg PO DAILY [facility] Fentanyl (Sublimaze Injection -) 50 mcg IVPUSH [id number] PRN PRN Reason: PAIN-PACU ORDER X 4 DOSES ONLY Fluticasone Propionate (Flonase -) 1 spray NS DAILY [facility] Gabapentin (Neurontin -) 100 mg PO BID [facility] Last Admin: 05/29/19 21:53 Dose: 100 mg Heparin Sodium (Porcine) (Heparin -) 5,000 unit SQ BID [facility] Last Admin: 05/29/19 21:53 Dose: 5,000 unit Heparin Sodium (Porcine) (Heparin -) 300 unit IVPUSH Q1H [facility] Stop: 05/30/19 10:31 Last Admin: 05/30/19 09:50 Dose: 300 unit Hydralazine HCl (Apresoline -) 25 mg PO TID [facility] Last Admin: 05/30/19 06:20 Dose: 25 mg Dextrose (D5w -) 1,000 mls @ 42 mls/hr IV ASDIR [facility] Sodium Chloride (Normal Saline -) 1,000 mls @ 42 mls/hr IV ASDIR [facility] Last Admin: 05/29/19 19:13 Dose: Not Given Sodium Chloride (Normal Saline -) 250 mls @ 3,000 mls/hr IV PRN PRN PRN Reason: Hypotension during Dialysis Stop: 05/30/19 15:06 Sodium Chloride (Normal Saline -) 250 mls @ 3,000 mls/hr IV PRN PRN PRN Reason: Hypotension during Dialysis Stop: 05/31/19 08:21 Insulin Aspart (Novolog Vial Sliding Scale -) 1 vial SQ ACHS [facility]; Protocol Last Admin: 05/30/19 06:20 Dose: Not Given Insulin Detemir (Levemir Vial) 5 units SQ AM [facility] Last Admin: 05/30/19 06:23 Dose: Not Given Lidocaine (Lidoderm Patch -) 1 patch TP DAILY [facility] Methadone HCl (Dolophine -) 2.5 mg PO TID [facility] Last Admin: 05/30/19 06:20 Dose: 2.5 mg Miscellaneous (Lidoderm Patch Removal) 1 each MC DAILY@2200 [facility] Last Admin: 05/29/19 22:53 Dose: Not Given Multivit/Ca Carb/B Cmplx/FA/Prenat (Nephro-Guilherme -) 1 tablet PO DAILY [facility] Nifedipine (Procardia Xl -) 90 mg PO DAILY [facility] Ondansetron HCl (Zofran Injection) 4 mg IVPUSH Q6H PRN PRN Reason: NAUSEA AND/OR VOMITING Tiotropium [place] (Spiriva Respimat) 2 puff IH DAILY [facility] Torsemide (Demadex -) 80 mg PO DAILY [facility] Trazodone HCl 400 mg/ (Trazodone HCl 50 mg) 450 mg PO HS [facility] Last Admin: 05/29/19 21:52 Dose: 450 mg - Objective Vital Signs: Vital Signs Temperature 98.1 F 05/30/19 08:45 Pulse Rate 79 05/30/19 09:50 Respiratory Rate 18 05/30/19 09:50 Blood Pressure 126/66 05/30/19 09:50 O2 Sat by Pulse Oximetry (%) 98 05/29/19 21:00 Problem List - Problems (1) AV fistula thrombosis Code(s): T82.868A - THROMBOSIS DUE TO VASCULAR PROSTH DEV/GRFT, INIT Qualifiers: Encounter type: initial encounter Qualified Code(s): T82.868A - Thrombosis due to vascular prosthetic devices, implants and grafts, initial encounter (2) Anemia Code(s): D64.9 - ANEMIA, UNSPECIFIED Qualifiers: (3) Below-knee amputation Code(s): S88.119A - COMPLETE TRAUM AMP AT LEV BETW KN & ANKL, UNSP LOW LEG, INIT (4) COPD with emphysema Code(s): J43.9 - EMPHYSEMA, UNSPECIFIED (5) Diabetes mellitus Code(s): E11.9 - TYPE 2 DIABETES MELLITUS WITHOUT COMPLICATIONS Qualifiers: Diabetes mellitus type: type 2 Diabetes mellitus usp insulin use: without usp use Diabetes mellitus complication status: without complication Qualified Code(s): E11.9 - Type 2 diabetes mellitus without complications (6) Diastolic CHF Code(s): I50.30 - UNSPECIFIED DIASTOLIC (CONGESTIVE) HEART FAILURE (7) ESRD (end stage renal disease) on dialysis Code(s): N18.6 - END STAGE RENAL DISEASE; Z99.2 - DEPENDENCE ON RENAL DIALYSIS (8) HTN (hypertension) Code(s): I10 - ESSENTIAL (PRIMARY) HYPERTENSION Qualifiers:
[2019-05-30 10:31] LABS: ALBUMIN 2.8 g/dl (3.4-5.0); BILIRUBIN,TOTAL 0.4 mg/dL (0.2-1); BLOOD UREA NITROGEN 68.1 mg/dL (7-18); CALCIUM 7.6 mg/dL (8.5-10.1); CREATININE 5.7 mg/dL (0.55-1.3); POTASSIUM 4.8 mmol/L (3.5-5.1); TOT PROT 6.5 g/dl (6.4-8.2)
--- NOTE | 2019-05-30 10:59 | PN ---
Progress Note (short form) - Note Progress Note: Renal follow up for ESRD on HD Seen and examined on dialysis. He offers no acute complaints no shortness of breath or chest pain BP stable, UF goal is 2.5L Vital Signs Temperature 98.1 F 05/30/19 08:45 Pulse Rate 84 05/30/19 10:50 Respiratory Rate 18 05/30/19 10:50 Blood Pressure 164/84 05/30/19 10:50 O2 Sat by Pulse Oximetry (%) 98 05/29/19 21:00 Intake & Output 05/27/19 05/28/19 05/29/19 05/30/19 23:59 23:59 23:59 23:59 Intake Total 1552 300 Output Total 800 3750 200 Balance -800 -2198 100 Weight 76 kg NAD RRR CTA, no rales or wheeze soft NT/ND bilateral BKA. No sacral edema left arm AVF CBC, BMP 05/30/19 08:55 05/30/19 08:55 Current Medications Albuterol Sulfate (Ventolin 0.083% Nebulizer Soln -) 1 amp NEB Q6H PRN PRN Reason: SHORTNESS OF BREATH Last Admin: 05/29/19 23:37 Dose: 1 amp Bacitracin (Bacitracin -) 1 applic TP BID [facility] Last Admin: 05/29/19 22:55 Dose: Not Given Doxazosin Mesylate (Cardura -) 4 mg PO DAILY [facility] Fentanyl (Sublimaze Injection -) 50 mcg IVPUSH [id number] PRN PRN Reason: PAIN-PACU ORDER X 4 DOSES ONLY Fluticasone Propionate (Flonase -) 1 spray NS DAILY [facility] Gabapentin (Neurontin -) 100 mg PO BID [facility] Last Admin: 05/29/19 21:53 Dose: 100 mg Heparin Sodium (Porcine) (Heparin -) 5,000 unit SQ BID [facility] Last Admin: 05/29/19 21:53 Dose: 5,000 unit Hydralazine HCl (Apresoline -) 25 mg PO TID [facility] Last Admin: 05/30/19 06:20 Dose: 25 mg Dextrose (D5w -) 1,000 mls @ 42 mls/hr IV ASDIR [facility] Sodium Chloride (Normal Saline -) 1,000 mls @ 42 mls/hr IV ASDIR [facility] Last Admin: 01/31/20 19:13 Dose: Not Given Sodium Chloride (Normal Saline -) 250 mls @ 3,000 mls/hr IV PRN PRN PRN Reason: Hypotension during Dialysis Stop: 05/30/19 15:06 Sodium Chloride (Normal Saline -) 250 mls @ 3,000 mls/hr IV PRN PRN PRN Reason: Hypotension during Dialysis Stop: 05/31/19 08:21 Iron Sucrose 100 mg/ Sodium (Chloride) 100 mls @ 200 mls/hr IVPB ONCE ONE Stop: 05/30/19 11:29 Insulin Aspart (Novolog Vial Sliding Scale -) 1 vial SQ ACHS [facility]; Protocol Last Admin: 05/30/19 06:20 Dose: Not Given Insulin Detemir (Levemir Vial) 5 units SQ AM [facility] Last Admin: 05/30/19 06:23 Dose: Not Given Lidocaine (Lidoderm Patch -) 1 patch TP DAILY [facility] Methadone HCl (Dolophine -) 2.5 mg PO TID [facility] Last Admin: 05/30/19 06:20 Dose: 2.5 mg Miscellaneous (Lidoderm Patch Removal) 1 each MC DAILY@2200 [facility] Last Admin: 05/29/19 22:53 Dose: Not Given Multivit/Ca Carb/B Cmplx/FA/Prenat (Nephro-Guilherme -) 1 tablet PO DAILY [facility] Nifedipine (Procardia Xl -) 90 mg PO DAILY [facility] Ondansetron HCl (Zofran Injection) 4 mg IVPUSH Q6H PRN PRN Reason: NAUSEA AND/OR VOMITING Tiotropium [place] (Spiriva Respimat) 2 puff IH DAILY [facility] Torsemide (Demadex -) 80 mg PO DAILY [facility] Trazodone HCl 400 mg/ (Trazodone HCl 50 mg) 450 mg PO HS [facility] Last Admin: 05/29/19 21:52 Dose: 450 mg 63 year old gentleman with history of ESRD on HD (TTS), Hypertension, PVD s/p bilateral BKA presented from outpatient dialysis unit with clotted AVF. 1. ESRD on HD 2. Non-functioning AVF 3. Hypertension 4. CHF now euvolemic 5. Mild hyperkalemia 6. Anemia s/p thrombectomy by vascular surgery yesterday. Tolerating dialysis well today Getting IV iron in HD today for anemia. No urgent indication for transfusion. Maintain on home antihypertensive medications Stable for discharge to [place] following dialysis from renal perspective. Miguel Jansen DO
[2019-05-30] MEDS ORDERED: IRON SUCROSE INJECTION 100 MG in SODIUM CHLORIDE 95 ML IVPB ONE (11:00)
[2019-05-30] MEDS: HEPARIN NA (PORCINE) 5,000 UNITS/ML 1ML VIAL SQ SCH ×2 (11:15→21:52)
[2019-05-30] MEDS: DOXAZOSIN MESYLATE 4 MG TABLET PO SCH (11:15)
[2019-05-30] MEDS: TORSEMIDE 20 MG TABLET (FP) PO SCH (11:15)
[2019-05-30] MEDS: VITAMIN B COMP W-C 1 EA TABLET PO SCH (11:16)
[2019-05-30] MEDS: GABAPENTIN 100 MG CAPSULE PO SCH ×2 (11:16→21:54)
[2019-05-30] MEDS: NIFEdipine E.R. 90 MG TABLET PO SCH (11:17)
[2019-05-30] MEDS: TIOTROPIUM BROMIDE 2.5 MCG (SPIRIVA) RESPIMAT INHALER IH SCH (11:17)
[2019-05-30] MEDS: FLUTICASONE PROP 0.05% 16 GM NASAL SPRAY NS SCH (11:30)
[2019-05-30] MEDS: LIDOCAINE 5% TOPICAL PATCH TP SCH (11:30)
--- NOTE | 2019-05-30 11:45 | DS ---
Physical Examination Vital Signs: Vital Signs Temperature 98.1 F 05/30/19 08:45 Pulse Rate 81 05/30/19 11:20 Respiratory Rate 18 05/30/19 11:20 Blood Pressure 165/92 05/30/19 11:20 O2 Sat by Pulse Oximetry (%) 98 05/30/19 09:00 Findings/Remarks: Laboratory Last Values WBC 6.9 K/mm3 (4.0-10.0) 05/30/19 08:55 RBC 2.74 M/mm3 (4.00-5.60) L 05/30/19 08:55 Hgb 7.7 GM/dL (11.7-16.9) L 05/30/19 08:55 Hct 24.3 % (35.4-49) L 05/30/19 08:55 MCV 88.4 fl (80-96) 05/30/19 08:55 MCH 28.2 pg (25.7-33.7) 05/30/19 08:55 MCHC 31.9 g/dl (32.0-35.9) L 05/30/19 08:55 RDW 19.0 % (11.9-15.9) H 05/30/19 08:55 Plt Count 423 K/MM3 (134-434) 05/30/19 08:55 MPV 7.2 fl (7.5-11.1) L 05/30/19 08:55 Absolute Neuts (auto) 6.2 K/mm3 (1.5-8.0) 05/28/19 10:00 Neutrophils % 73.6 % (42.8-82.8) 05/28/19 10:00 Lymphocytes % 12.4 % (8-40) 05/28/19 10:00 Monocytes % 7.5 % (3.8-10.2) 05/28/19 10:00 Eosinophils % 5.4 % (0-4.5) H 05/28/19 10:00 Basophils % 1.1 % (0-2.0) 05/28/19 10:00 Nucleated RBC % 0 % (0-0) 05/28/19 10:00 Sodium 139 mmol/L (136-145) 05/30/19 08:55 Potassium 4.8 mmol/L (3.5-5.1) 05/30/19 08:55 Chloride 104 mmol/L (98-107) 05/30/19 08:55 Carbon Dioxide 26 mmol/L (21-32) 05/30/19 08:55 Anion Gap 8 MMOL/L (8-16) 05/30/19 08:55 BUN 68.1 mg/dL (7-18) H 05/30/19 08:55 Creatinine 5.7 mg/dL (0.55-1.3) H 05/30/19 08:55 Est GFR (CKD-EPI)AfAm 11.27 05/30/19 08:55 Est GFR (CKD-EPI)NonAf 9.72 05/30/19 08:55 POC Glucometer 105 UNITS (80-120) 05/30/19 06:14 Random Glucose 165 mg/dL (74-106) H 05/30/19 08:55 Hemoglobin A1c % 6.1 % (4.2-6.3) 05/30/19 08:55 Calcium 7.6 mg/dL (8.5-10.1) L 05/30/19 08:55 Phosphorus 8.1 mg/dL (2.5-4.9) H 05/29/19 14:00 Magnesium 2.8 mg/dL (1.8-2.4) H 05/29/19 14:00 Iron 55 ug/dL (50-175) 05/29/19 14:00 TIBC 204 ug/dL (250-450) L 05/29/19 14:00 Iron Saturation 26 % (17.5-39) 05/29/19 14:00 Unsaturated IBC 149 ug/dL (200-275) L 05/29/19 14:00 Ferritin 1341.6 ng/ml (8-388) H 05/30/19 08:55 Total Bilirubin 0.4 mg/dL (0.2-1) 05/30/19 08:55 AST 20 U/L (15-37) 05/30/19 08:55 ALT 21 U/L (13-61) 05/30/19 08:55 Alkaline Phosphatase 143 U/L (45-117) H 05/30/19 08:55 Total Protein 6.5 g/dl (6.4-8.2) 05/30/19 08:55 Albumin 2.8 g/dl (3.4-5.0) L 05/30/19 08:55 TSH 1.36 uIU/ml (0.358-3.74) D 05/29/19 14:00 Thyroxine (T4) 7.7 ug/dl (4.5-13.9) 05/29/19 14:00 Active Medications Albuterol Sulfate (Ventolin 0.083% Nebulizer Soln -) 1 amp NEB Q6H PRN PRN Reason: SHORTNESS OF BREATH Last Admin: 05/29/19 23:37 Dose: 1 amp Bacitracin (Bacitracin -) 1 applic TP BID [facility] Last Admin: 05/29/19 22:55 Dose: Not Given Doxazosin Mesylate (Cardura -) 4 mg PO DAILY [facility] Last Admin: 05/30/19 11:15 Dose: Not Given Fentanyl (Sublimaze Injection -) 50 mcg IVPUSH [id number] PRN PRN Reason: PAIN-PACU ORDER X 4 DOSES ONLY Fluticasone Propionate (Flonase -) 1 spray NS DAILY [facility] Gabapentin (Neurontin -) 100 mg PO BID [facility] Last Admin: 05/30/19 11:16 Dose: Not Given Heparin Sodium (Porcine) (Heparin -) 5,000 unit SQ BID [facility] Last Admin: 05/30/19 11:15 Dose: Not Given Hydralazine HCl (Apresoline -) 25 mg PO TID [facility] Last Admin: 05/30/19 06:20 Dose: 25 mg Dextrose (D5w -) 1,000 mls @ 42 mls/hr IV ASDIR IGGY Sodium Chloride (Normal Saline -) 1,000 mls @ 42 mls/hr IV ASDIR [facility] Last Admin: 05/29/19 19:13 Dose: Not Given Sodium Chloride (Normal Saline -) 250 mls @ 3,000 mls/hr IV PRN PRN PRN Reason: Hypotension during Dialysis Stop: 05/30/19 15:06 Sodium Chloride (Normal Saline -) 250 mls @ 3,000 mls/hr IV PRN PRN PRN Reason: Hypotension during Dialysis Stop: 05/31/19 08:21 Insulin Aspart (Novolog Vial Sliding Scale -) 1 vial SQ ACHS [facility]; Protocol Last Admin: 05/30/19 06:20 Dose: Not Given Insulin Detemir (Levemir Vial) 5 units SQ AM [facility] Last Admin: 05/30/19 06:23 Dose: Not Given Lidocaine (Lidoderm Patch -) 1 patch TP DAILY [facility] Methadone HCl (Dolophine -) 2.5 mg PO TID [facility] Last Admin: 05/30/19 06:20 Dose: 2.5 mg Miscellaneous (Lidoderm Patch Removal) 1 each MC DAILY@2200 [facility] Last Admin: 05/29/19 22:53 Dose: Not Given Multivit/Ca Carb/B Cmplx/FA/Prenat (Nephro-Guilherme -) 1 tablet PO DAILY [facility] Last Admin: 05/30/19 11:16 Dose: Not Given Nifedipine (Procardia Xl -) 90 mg PO DAILY [facility] Last Admin: 05/30/19 11:17 Dose: Not Given Ondansetron HCl (Zofran Injection) 4 mg IVPUSH Q6H PRN PRN Reason: NAUSEA AND/OR VOMITING Tiotropium [place] (Spiriva Respimat) 2 puff IH DAILY [facility] Last Admin: 05/30/19 11:17 Dose: Not Given Torsemide (Demadex -) 80 mg PO DAILY [facility] Last Admin: 05/30/19 11:15 Dose: Not Given Trazodone HCl 400 mg/ (Trazodone HCl 50 mg) 450 mg PO HS [facility] Last Admin: 05/29/19 21:52 Dose: 450 mg Constitutional: Yes: No Distress, Calm Eyes: Yes: Conjunctiva Clear HENT: Yes: Atraumatic Cardiovascular: Yes: Regular Rate and Rhythm Respiratory: Yes: Regular, CTA Bilaterally Gastrointestinal: Yes: Normal Bowel Sounds, Soft Musculoskeletal: Yes: Muscle Weakness Extremities: Yes: Amputation (b/l BKA) Edema: No Neurological: Yes: Alert, Oriented Psychiatric: Yes: Alert, Oriented Labs: CBC, BMP 05/30/19 08:55 05/30/19 08:55 Discharge Summary Problems reviewed: Yes Reason For Visit: MALFUNCTION OF ARTERIOVENOUS SHUNT Current Active Problems AV fistula thrombosis (Acute) Type 2 diabetes mellitus with diabetic chronic kidney disease (Acute) 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 (Acute) Hospital Course: Patient is a 63 y/o male with past medical history of ESRD on HD T-Th-S, HTN, B/ L BKA, Diastolic CHF, Anemia, MRSA Bactermia s/s osteomylitis. Patient presented from dialysis center to [facility] for dialysis shunt malfunction and hypoglycemic with BS 30mg/dL. In ER Arterial Duplex of shunt performed and showed extensive thrombus within the draining vein of AV dialysis fistula. Vascular and Renal consulted. Arterial Duplex of shunt performed and showed extensive thrombus within the draining vein of AV dialysis fistula. Vascular on board and is POD #1 venogram , suction thrombectomy, venoplasty left avg. Fistula is cleared for use and is currently receiving HD. Hg 7.7 but is receiving Epoeitin and Iron IV during HD. CBC should be repeated on Saturday at [facility]. Condition: Stable - Instructions Diet, Activity, Other Instructions: Follow up with PCP 2 weeks post discharge follow up with Structural Design Engineer Dr Aniyah Willard continue HD on scheduled days check for thrill qshift of AV fistula Hg 7.7 received Iron and Epoeitin in HD, monitor CBC on Saturday renal diet continue with medication as prescribed return to ER if Fistula malfunction, respiratory distress, chest pain Referrals: Aniyah Chaudhry MD [Staff Physician] - Disposition: CARE HOME FACILITY - Home Medications Comprehensive Discharge Medication List: Ambulatory Orders Fluticasone Prop 0.05% Nasal [Flonase -] 1 - 2 spray NS DAILY #1 spray.pump Lidocaine 5% Patch [Lidoderm -] 1 patch TP DAILY patch 10/06/17 traZODone HCL [Desyrel -] 450 mg PO HS 04/07/19 Vitamin B Comp W-C [Nephro-Guilherme -] 1 tablet PO DAILY #30 tablet 04/20/19 Doxazosin Mesylate 4 mg PO DAILY 05/11/19 Gabapentin 100 mg PO BID 05/11/19 Nifedipine ER [Procardia XL -] 90 mg PO DAILY 05/11/19 Albuterol 0.083% Nebulizer [place] [Ventolin 0.083% Nebulizer Soln -] 1 neb NEB Q6H PRN 30 Days vial 05/23/19 Bacitracin - [Bacitracin Topical Ointment -] 1 applic TP BID tube 05/23/19 Torsemide [Demadex -] 80 mg PO DAILY 30 Days #30 tablet 05/23/19 Hydralazine HCl 25 mg PO TID 05/28/19 Insulin Detemir [Levemir Flextouch] 3 unit SQ BID 05/28/19 Insulin Lispro [Admelog Solostar] 1 units SQ ASDIR 05/28/19 Methadone HCl 2.5 mg PO TID 05/28/19 Tiotropium [place] [Spiriva Respimat] 1 inh .ROUTE BID 05/28/19
[2019-05-30] MEDS: ALBUTEROL SO4 0.083% IH SOL 2.5 MG/3 ML VIAL.NEB. NEB PRN (16:22)
[2019-05-30] MEDS ORDERED: INSULIN (NOVOLOG) ASPART 100 UNITS/ML 10ML VIAL ONE (16:55)
[2019-05-30] MEDS ORDERED: PT OWN MED DRAWER 7, Y5N ONE (20:53)
[2019-05-30] MEDS: LIDOCAINE PATCH REMOVAL MC SCH (21:53)
[2019-05-30] MEDS ORDERED: LIDOCAINE 5% TOPICAL PATCH TP ONE (22:45)
[2019-05-30] MEDS: TRAZODONE HCL PO SCH (23:08)
[2019-05-31] MEDS: hydrALAZINE HCL 25 MG TABLET (FP) PO SCH ×3 (06:17→21:49)
[2019-05-31] MEDS: METHADONE HCL 5 MG TABLET PO SCH ×3 (06:17→21:49)
[2019-05-31] MEDS: INSULIN SLIDING SCALE (NOVOLOG) 1 VIAL SQ SCH ×4 (06:18→21:51)
[2019-05-31] MEDS: INSULIN (LEVEMIR) 100 UNITS/ML UNITS SQ SCH (06:18)
[2019-05-31] MEDS: BACITRACIN 15 GM TUBE TOPICAL OINTMENT TP SCH ×2 (09:40→21:50)
[2019-05-31] MEDS: HEPARIN NA (PORCINE) 5,000 UNITS/ML 1ML VIAL SQ SCH ×2 (09:40→21:48)
[2019-05-31] MEDS: VITAMIN B COMP W-C 1 EA TABLET PO SCH (09:41)
[2019-05-31] MEDS: DOXAZOSIN MESYLATE 4 MG TABLET PO SCH (09:41)
[2019-05-31] MEDS: TORSEMIDE 20 MG TABLET (FP) PO SCH (09:41)
[2019-05-31] MEDS: GABAPENTIN 100 MG CAPSULE PO SCH ×2 (09:42→21:51)
[2019-05-31] MEDS: NIFEdipine E.R. 90 MG TABLET PO SCH (09:43)
[2019-05-31] MEDS: LIDOCAINE 5% TOPICAL PATCH TP SCH (09:43)
--- NOTE | 2019-05-31 09:45 | PN ---
Progress Note, Physician Chief Complaint: ESRD on HD Fistula Malfunction History of Present Illness: Previous notes and events reviewed awake and alert NAD denies chest pain, dizziness complain of productive cough - Current Medication List Current Medications: Active Medications Albuterol Sulfate (Ventolin 0.083% Nebulizer Soln -) 1 amp NEB Q6H PRN PRN Reason: SHORTNESS OF BREATH Last Admin: 05/30/19 16:22 Dose: 1 amp Bacitracin (Bacitracin -) 1 applic TP BID [facility] Last Admin: 05/30/19 21:54 Dose: 1 applic Doxazosin Mesylate (Cardura -) 4 mg PO DAILY [facility] Last Admin: 05/30/19 11:15 Dose: Not Given Fentanyl (Sublimaze Injection -) 50 mcg IVPUSH [id number] PRN PRN Reason: PAIN-PACU ORDER X 4 DOSES ONLY Fluticasone Propionate (Flonase -) 1 spray NS DAILY [facility] Last Admin: 05/30/19 11:30 Dose: Not Given Gabapentin (Neurontin -) 100 mg PO BID [facility] Last Admin: 05/30/19 21:54 Dose: 100 mg Heparin Sodium (Porcine) (Heparin -) 5,000 unit SQ BID [facility] Last Admin: 05/30/19 21:52 Dose: 5,000 unit Hydralazine HCl (Apresoline -) 25 mg PO TID [facility] Last Admin: 05/31/19 06:17 Dose: 25 mg Insulin Aspart (Novolog Vial Sliding Scale -) 1 vial SQ [facility]; Protocol Last Admin: 05/31/19 06:18 Dose: Not Given Insulin Detemir (Levemir Vial) 5 units SQ AM [facility] Last Admin: 05/31/19 06:18 Dose: Not Given Lidocaine (Lidoderm Patch -) 1 patch TP DAILY [facility] Last Admin: 05/30/19 11:30 Dose: Not Given Methadone HCl (Dolophine -) 2.5 mg PO TID [facility] Last Admin: 05/31/19 06:17 Dose: 2.5 mg Miscellaneous (Lidoderm Patch Removal) 1 each MC DAILY@2200 [facility] Last Admin: 05/30/19 21:53 Dose: Not Given Miscellaneous (Lidoderm Patch Removal) 1 each MC ONCE ONE Stop: 05/31/19 11:01 Multivit/Ca Carb/B Cmplx/FA/Prenat (Nephro-Guilherme -) 1 tablet PO DAILY [facility] Last Admin: 05/30/19 11:16 Dose: Not Given Nifedipine (Procardia Xl -) 90 mg PO DAILY [facility] Last Admin: 05/30/19 11:17 Dose: Not Given Ondansetron HCl (Zofran Injection) 4 mg IVPUSH Q6H PRN PRN Reason: NAUSEA AND/OR VOMITING Tiotropium [place] (Spiriva Respimat) 2 puff IH DAILY [facility] Last Admin: 05/30/19 11:17 Dose: Not Given Torsemide (Demadex -) 80 mg PO DAILY [facility] Last Admin: 05/30/19 11:15 Dose: Not Given Trazodone HCl 400 mg/ (Trazodone HCl 50 mg) 450 mg PO [facility] Last Admin: 05/30/19 23:08 Dose: 450 mg - Objective Vital Signs: Vital Signs Temperature 98 F 05/31/19 05:47 Pulse Rate 72 05/31/19 05:47 Respiratory Rate 20 05/31/19 05:47 Blood Pressure 156/78 05/31/19 05:47 O2 Sat by Pulse Oximetry (%) 98 05/30/19 21:00 Constitutional: Yes: No Distress, Calm Eyes: Yes: Conjunctiva Clear HENT: Yes: Atraumatic Cardiovascular: Yes: Regular Rate and Rhythm Respiratory: Yes: Regular, Diminished Gastrointestinal: Yes: Normal Bowel Sounds, Soft Musculoskeletal: Yes: Muscle Weakness Extremities: Yes: Amputation (b/l bka) Edema: No Neurological: Yes: Alert, Oriented Psychiatric: Yes: Alert, Oriented Labs: CBC, BMP 05/30/19 08:55 05/30/19 08:55 Microbiology 05/30/19 03:48 Stool Salmonella/Shigella Culture - Preliminary NO ENTERIC PATHOGENS, 24 HOURS, ON PRIMARY PLATES 05/30/19 03:48 Stool Yersinia Culture - Preliminary NO ENTERIC PATHOGENS, 24 HOURS, ON PRIMARY PLATES 05/30/19 03:48 Stool Vibrio Culture - Final NO GROWTH OF VIBRIO SPECIES OBTAINED 05/30/19 03:48 Stool Escherichia coli 0157 Culture - Final NO GROWTH OF E COLI 0157 OBTAINED Problem List - Problems (1) AV fistula thrombosis Assessment/Plan: -Arterial Duplex of shunt performed and showed extensive thrombus within the draining vein of AV dialysis fistula -Vascular on board -POD #2 venogram, suction thrombectomy, venoplasty left avg -+thrill on auscultation Code(s): T82.868A - THROMBOSIS DUE TO VASCULAR PROSTH DEV/GRFT, INIT Qualifiers: Encounter type: initial encounter Qualified Code(s): T82.868A - Thrombosis due to vascular prosthetic devices, implants and grafts, initial encounter (2) Anemia Assessment/Plan: -Hg 7.7 -received Iron infusion and epoietin in HD yesterday -monitor Hg daily -transfuse for Hg <7.0 to avoid fluid overload -anemia profile shows normal Iron 55, TIBC 204, Iron Sat 24 Code(s): D64.9 - ANEMIA, UNSPECIFIED Qualifiers: (3) Below-knee amputation Assessment/Plan: -PT -fall precaution Code(s): S88.119A - COMPLETE TRAUM AMP AT LEV BETW KN & ANKL, UNSP LOW LEG, INIT (4) COPD with emphysema Assessment/Plan: -keep SpO 2>90% -O2 via NC prn for SOB -Bronchodilators -Spiriva Code(s): J43.9 - EMPHYSEMA, UNSPECIFIED (5) Diabetes mellitus Assessment/Plan: -BGM ACHS -holding Levemir due to episode of hypoglycemia -ISS -HgA1c -Endocrinology on board Code(s): E11.9 - TYPE 2 DIABETES MELLITUS WITHOUT COMPLICATIONS Qualifiers: Diabetes mellitus type: type 2 Diabetes mellitus terminologist insulin use: without terminologist use Diabetes mellitus complication status: without complication Qualified Code(s): E11.9 - Type 2 diabetes mellitus without complications (6) Diastolic CHF Assessment/Plan: -Demadex -1L fluid restriction -strict I&O -daily weights Code(s): I50.30 - UNSPECIFIED DIASTOLIC (CONGESTIVE) HEART FAILURE (7) ESRD (end stage renal disease) on dialysis Assessment/Plan: -Renal on board -dialysis on scheduled days -renal diet -BUN/Cr 85.6/7.2 -monitor renal function daily Code(s): N18.6 - END STAGE RENAL DISEASE; Z99.2 - DEPENDENCE ON RENAL DIALYSIS (8) HTN (hypertension) Assessment/Plan: -Hydralazine, Nifedipine, Cardura -low Na diet Code(s): I10 - ESSENTIAL (PRIMARY) HYPERTENSION Qualifiers: Assessment/Plan see problem list dvt ppx
[2019-05-31] MEDS ORDERED: LIDOCAINE PATCH REMOVAL MC ONE (11:00)
[2019-05-31] MEDS: FLUTICASONE PROP 0.05% 16 GM NASAL SPRAY NS SCH (11:09)
[2019-05-31] MEDS: TIOTROPIUM BROMIDE 2.5 MCG (SPIRIVA) RESPIMAT INHALER IH SCH (11:13)
[2019-05-31 11:30] LABS: HEMATOCRIT 25.2 % (35.4-49); HEMOGLOBIN 7.9 GM/dL (11.7-16.9); MCH 27.8 pg (25.7-33.7); MCHC 31.5 g/dl (32.0-35.9); MEAN CELL VOLUME 88.1 fl (80-96); MEAN PLT VOLUME 7.3 fl (7.5-11.1); PLATELET COUNT 400 K/MM3 (134-434); RBC 2.86 M/mm3 (4.00-5.60); RDW 19.1 % (11.9-15.9); WHITE BLOOD COUNT 7.6 K/mm3 (4.0-10.0)
[2019-05-31 11:45] LABS: ALBUMIN 2.8 g/dl (3.4-5.0); BILIRUBIN,TOTAL 0.4 mg/dL (0.2-1); BLOOD UREA NITROGEN 50.8 mg/dL (7-18); CALCIUM 7.8 mg/dL (8.5-10.1); CREATININE 4.9 mg/dL (0.55-1.3); POTASSIUM 4.8 mmol/L (3.5-5.1); TOT PROT 6.6 g/dl (6.4-8.2)
[2019-05-31] MEDS ORDERED: PT OWN MED DRAWER 7, Y5N ONE (11:53)
[2019-05-31] MEDS: ALBUTEROL SO4 0.083% IH SOL 2.5 MG/3 ML VIAL.NEB. NEB PRN (14:50)
[2019-05-31] MEDS ORDERED: INSULIN (LEVEMIR) 100 UNITS/ML UNITS SQ SCH (15:44)
[2019-05-31] MEDS ORDERED: traZODone HCL 100 MG TABLET (FP) ONE (21:35)
[2019-05-31] MEDS ORDERED: traZODone HCL 50 MG TABLET (FP) ONE (21:35)
[2019-05-31] MEDS: TRAZODONE HCL PO SCH (21:48)
[2019-05-31] MEDS: LIDOCAINE PATCH REMOVAL MC SCH (21:50)
--- NOTE | 2019-05-31 22:12 | PN ---
Progress Note, Physician Chief Complaint: sugars improved yet labile - Current Medication List Current Medications: Active Medications Albuterol Sulfate (Ventolin 0.083% Nebulizer Soln -) 1 amp NEB Q6H PRN PRN Reason: SHORTNESS OF BREATH Last Admin: 05/31/19 14:50 Dose: 1 amp Bacitracin (Bacitracin -) 1 applic TP BID [facility] Last Admin: 05/31/19 21:50 Dose: 1 applic Doxazosin Mesylate (Cardura -) 4 mg PO DAILY [facility] Last Admin: 05/31/19 09:41 Dose: 4 mg Fentanyl (Sublimaze Injection -) 50 mcg IVPUSH [id number] PRN PRN Reason: PAIN-PACU ORDER X 4 DOSES ONLY Fluticasone Propionate (Flonase -) 1 spray NS DAILY [facility] Last Admin: 05/31/19 11:09 Dose: 1 spray Gabapentin (Neurontin -) 100 mg PO BID [facility] Last Admin: 05/31/19 21:51 Dose: 100 mg Heparin Sodium (Porcine) (Heparin -) 5,000 unit SQ BID [facility] Last Admin: 05/31/19 21:48 Dose: 5,000 unit Hydralazine HCl (Apresoline -) 25 mg PO TID [facility] Last Admin: 05/31/19 21:49 Dose: 25 mg Insulin Aspart (Novolog Vial Sliding Scale -) 1 vial SQ [facility]; Protocol Last Admin: 05/31/19 21:51 Dose: 3 units Insulin Detemir (Levemir Vial) 10 units SQ AM [facility] Lidocaine (Lidoderm Patch -) 1 patch TP DAILY [facility] Last Admin: 05/31/19 09:43 Dose: 1 patch Methadone HCl (Dolophine -) 2.5 mg PO TID [facility] Last Admin: 05/31/19 21:49 Dose: 2.5 mg Miscellaneous (Lidoderm Patch Removal) 1 each MC DAILY@2200 [facility] Last Admin: 05/31/19 21:50 Dose: Not Given Multivit/Ca Carb/B Cmplx/FA/Prenat (Nephro-Guilherme -) 1 tablet PO DAILY [facility] Last Admin: 05/31/19 09:41 Dose: 1 tablet Nifedipine (Procardia Xl -) 90 mg PO DAILY [facility] Last Admin: 05/31/19 09:43 Dose: 90 mg Ondansetron HCl (Zofran Injection) 4 mg IVPUSH Q6H PRN PRN Reason: NAUSEA AND/OR VOMITING Tiotropium [place] (Spiriva Respimat) 2 puff IH DAILY [facility] Last Admin: 05/31/19 11:13 Dose: 2 puff Torsemide (Demadex -) 80 mg PO DAILY [facility] Last Admin: 05/31/19 09:41 Dose: 80 mg Trazodone HCl 400 mg/ (Trazodone HCl 50 mg) 450 mg PO HS [facility] Last Admin: 05/31/19 21:48 Dose: 450 mg - Objective Vital Signs: Vital Signs Temperature 97.8 F 05/31/19 19:53 Pulse Rate 83 05/31/19 19:53 Respiratory Rate 22 H 05/31/19 16:03 Blood Pressure 139/71 05/31/19 19:53 O2 Sat by Pulse Oximetry (%) 98 05/31/19 09:00 Constitutional: Yes: Calm Eyes: Yes: EOM Intact HENT: Yes: Normocephalic Cardiovascular: Yes: Regular Rate and Rhythm Respiratory: Yes: CTA Bilaterally Gastrointestinal: Yes: Normal Bowel Sounds ...Rectal Exam: Yes: Deferred Musculoskeletal: Yes: Muscle Weakness Edema: No Neurological: Yes: Alert, Oriented Labs: CBC, BMP 05/31/19 10:50 05/31/19 10:50 Problem List - Problems (1) Type 2 diabetes mellitus with diabetic chronic kidney disease Qualifiers: Chronic kidney disease stage: stage 4 (severe) Qualified Code(s): E11.22 - Type 2 diabetes mellitus with diabetic chronic kidney disease; N18.4 - Chronic kidney disease, stage 4 (severe); Z79.4 - joint terminal attack controller (current) use of insulin (2) 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 Code(s): E11.311 - TYPE 2 DIABETES W UNSP DIABETIC RETINOPATHY W MACULAR EDEMA (3) AV fistula thrombosis Code(s): T82.868A - THROMBOSIS DUE TO VASCULAR PROSTH DEV/GRFT, INIT Qualifiers: Encounter type: initial encounter Qualified Code(s): T82.868A - Thrombosis due to vascular prosthetic devices, implants and grafts, initial encounter (4) Shortness of breath Code(s): R06.02 - SHORTNESS OF BREATH (5) Acute on chronic diastolic heart failure Code(s): I50.33 - ACUTE ON CHRONIC DIASTOLIC (CONGESTIVE) HEART FAILURE (6) Anemia Code(s): D64.9 - ANEMIA, UNSPECIFIED Qualifiers: (7) Below-knee amputation Code(s): S88.119A - COMPLETE TRAUM AMP AT LEV BETW KN & ANKL, UNSP LOW LEG, INIT (8) COPD with emphysema Code(s): J43.9 - EMPHYSEMA, UNSPECIFIED (9) Chronic pain Code(s): G89.29 - OTHER CHRONIC PAIN Assessment/Plan Current Active Problems AV fistula thrombosis (Acute) Type 2 diabetes mellitus with diabetic chronic kidney disease (Acute) 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 (Acute) Abnormal Lab Results 05/31/19 05/31/19 10:50 10:50 RBC 2.86 L Hgb 7.9 L Hct 25.2 L MCHC 31.5 L RDW 19.1 H MPV 7.3 L Anion Gap 6 L BUN 50.8 H Creatinine 4.9 H Random Glucose 316 H Calcium 7.8 L Alkaline Phosphatase 161 H Albumin 2.8 L Laboratory Results - last 24 hr 05/31/19 05/31/19 05/31/19 06:16 10:50 10:50 WBC 7.6 RBC 2.86 L Hgb 7.9 L Hct 25.2 L MCV 88.1 MCH 27.8 MCHC 31.5 L RDW 19.1 H Plt Count 400 MPV 7.3 L Sodium 136 Potassium 4.8 Chloride 100 Carbon Dioxide 29 Anion Gap 6 L BUN 50.8 H Creatinine 4.9 H Est GFR (CKD-EPI)AfAm 13.53 Est GFR (CKD-EPI)NonAf 11.67 POC Glucometer 216 Random Glucose 316 H Calcium 7.8 L Total Bilirubin 0.4 AST 18 ALT 18 Alkaline Phosphatase 161 H Total Protein 6.6 Albumin 2.8 L 05/31/19 05/31/19 05/31/19 10:55 16:52 21:47 WBC RBC Hgb Hct MCV MCH MCHC RDW Plt Count MPV Sodium Potassium Chloride Carbon Dioxide Anion Gap BUN Creatinine Est GFR (CKD-EPI)AfAm Est GFR (CKD-EPI)NonAf POC Glucometer 293 366 272 Random Glucose Calcium Total Bilirubin AST ALT Alkaline Phosphatase Total Protein Albumin plan: levemir 10 units am bgm coverage doses glucerna nutrition consult
[2019-06-01 05:54] VITALS: TEMP 97.9
[2019-06-01] MEDS: hydrALAZINE HCL 25 MG TABLET (FP) PO SCH (06:16)
[2019-06-01] MEDS: METHADONE HCL 5 MG TABLET PO SCH (06:16)
[2019-06-01] MEDS: INSULIN SLIDING SCALE (NOVOLOG) 1 VIAL SQ SCH ×2 (06:31→10:49)
[2019-06-01 09:11] LABS: HEMOGLOBIN 7.9 GM/dL (11.7-16.9); MCH 28.9 pg (25.7-33.7); MCHC 32.7 g/dl (32.0-35.9); MEAN CELL VOLUME 88.5 fl (80-96); MEAN PLT VOLUME 7.3 fl (7.5-11.1); PLATELET COUNT 411 K/MM3 (134-434); RBC 2.72 M/mm3 (4.00-5.60); RDW 18.5 % (11.9-15.9)
[2019-06-01] MEDS: BACITRACIN 15 GM TUBE TOPICAL OINTMENT TP SCH (09:15)
[2019-06-01] MEDS: TORSEMIDE 20 MG TABLET (FP) PO SCH (09:15)
[2019-06-01] MEDS: VITAMIN B COMP W-C 1 EA TABLET PO SCH (09:15)
[2019-06-01] MEDS: LIDOCAINE 5% TOPICAL PATCH TP SCH (09:15)
[2019-06-01] MEDS: NIFEdipine E.R. 90 MG TABLET PO SCH (09:16)
[2019-06-01] MEDS: DOXAZOSIN MESYLATE 4 MG TABLET PO SCH (09:16)
[2019-06-01] MEDS: GABAPENTIN 100 MG CAPSULE PO SCH (09:16)
[2019-06-01] MEDS: HEPARIN NA (PORCINE) 5,000 UNITS/ML 1ML VIAL SQ SCH (09:16)
[2019-06-01] MEDS: FLUTICASONE PROP 0.05% 16 GM NASAL SPRAY NS SCH (09:17)
[2019-06-01] MEDS: TIOTROPIUM BROMIDE 2.5 MCG (SPIRIVA) RESPIMAT INHALER IH SCH (09:17)
[2019-06-01 09:55] LABS: ALBUMIN 2.8 g/dl (3.4-5.0); BLOOD UREA NITROGEN 63.3 mg/dL (7-18); CREATININE 5.9 mg/dL (0.55-1.3); POTASSIUM 5.1 mmol/L (3.5-5.1); TOT PROT 6.6 g/dl (6.4-8.2)
[2019-06-01 10:00] LABS: BILIRUBIN,TOTAL 0.5 mg/dL (0.2-1)
[2019-06-01] MEDS ORDERED: INSULIN (NOVOLOG) ASPART 100 UNITS/ML 10ML VIAL ONE (10:27)
--- NOTE | 2019-06-01 11:06 | DS ---
Physical Examination Vital Signs: Vital Signs Temperature 97.9 F 06/01/19 05:52 Pulse Rate 78 06/01/19 05:52 Respiratory Rate 20 06/01/19 05:52 Blood Pressure 120/63 06/01/19 05:52 O2 Sat by Pulse Oximetry (%) 97 05/31/19 21:00 Findings/Remarks: Patient is a 63 y/o male with past medical history of ESRD on HD T-Th-S, HTN, B/ L BKA, Diastolic CHF, Anemia, MRSA Bactermia s/s osteomylitis. Patient presented from dialysis center to [facility] for dialysis shunt malfunction and hypoglycemic with BS 30mg/dL. In ER Arterial Duplex of shunt performed and showed extensive thrombus within the draining vein of AV dialysis fistula. Vascular and Renal consulted. Arterial Duplex of shunt performed and showed extensive thrombus within the draining vein of AV dialysis fistula. Vascular on board and is POD #1 venogram , suction thrombectomy, venoplasty left avg. Fistula is cleared for use and is currently receiving HD. Hg 7.7 but is receiving Epoeitin and Iron IV during HD. CBC should be repeated on Saturday at . Constitutional: Yes: Well Nourished, No Distress, Calm Cardiovascular: Yes: Regular Rate and Rhythm Respiratory: Yes: Regular Gastrointestinal: Yes: Normal Bowel Sounds, Soft Renal/: Yes: Oliguria Musculoskeletal: Yes: WNL Extremities: Yes: WNL Edema: No Peripheral Pulses WNL: Yes Neurological: Yes: Alert, Oriented Psychiatric: Yes: Alert, Oriented Labs: CBC, BMP 06/01/19 07:30 06/01/19 07:30 Discharge Summary Problems reviewed: Yes Reason For Visit: MALFUNCTION OF ARTERIOVENOUS SHUNT Current Active Problems AV fistula thrombosis (Acute) Type 2 diabetes mellitus with diabetic chronic kidney disease (Acute) 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 (Acute) Laboratory Last Values WBC 8.0 K/mm3 (4.0-10.0) 06/01/19 07:30 RBC 2.72 M/mm3 (4.00-5.60) L 06/01/19 07:30 Hgb 7.9 GM/dL (11.7-16.9) L 06/01/19 07:30 Hct 24.0 % (35.4-49) L 06/01/19 07:30 MCV 88.5 fl (80-96) 06/01/19 07:30 MCH 28.9 pg (25.7-33.7) 06/01/19 07:30 MCHC 32.7 g/dl (32.0-35.9) 06/01/19 07:30 RDW 18.5 % (11.9-15.9) H 06/01/19 07:30 Plt Count 411 K/MM3 (134-434) 06/01/19 07:30 MPV 7.3 fl (7.5-11.1) L 06/01/19 07:30 Absolute Neuts (auto) 6.2 K/mm3 (1.5-8.0) 05/28/19 10:00 Neutrophils % 73.6 % (42.8-82.8) 05/28/19 10:00 Lymphocytes % 12.4 % (8-40) 05/28/19 10:00 Monocytes % 7.5 % (3.8-10.2) 05/28/19 10:00 Eosinophils % 5.4 % (0-4.5) H 05/28/19 10:00 Basophils % 1.1 % (0-2.0) 05/28/19 10:00 Nucleated RBC % 0 % (0-0) 05/28/19 10:00 Sodium 136 mmol/L (136-145) 06/01/19 07:30 Potassium 5.1 mmol/L (3.5-5.1) 06/01/19 07:30 Chloride 100 mmol/L (98-107) 06/01/19 07:30 Carbon Dioxide 28 mmol/L (21-32) 06/01/19 07:30 Anion Gap 8 MMOL/L (8-16) 06/01/19 07:30 BUN 63.3 mg/dL (7-18) H 06/01/19 07:30 Creatinine 5.9 mg/dL (0.55-1.3) H 06/01/19 07:30 Est GFR (CKD-EPI)AfAm 10.81 06/01/19 07:30 Est GFR (CKD-EPI)NonAf 9.33 06/01/19 07:30 POC Glucometer 336 UNITS (80-120) 06/01/19 10:23 Random Glucose 269 mg/dL (74-106) H 06/01/19 07:30 Hemoglobin A1c % 6.1 % (4.2-6.3) 05/30/19 08:55 Calcium 8.0 mg/dL (8.5-10.1) L 06/01/19 07:30 Phosphorus 8.1 mg/dL (2.5-4.9) H 05/29/19 14:00 Magnesium 2.8 mg/dL (1.8-2.4) H 05/29/19 14:00 Iron 55 ug/dL (50-175) 05/29/19 14:00 TIBC 204 ug/dL (250-450) L 05/29/19 14:00 Iron Saturation 26 % (17.5-39) 05/29/19 14:00 Unsaturated IBC 149 ug/dL (200-275) L 05/29/19 14:00 Ferritin 1341.6 ng/ml (8-388) H 05/30/19 08:55 Total Bilirubin 0.5 mg/dL (0.2-1) 06/01/19 07:30 AST 21 U/L (15-37) 06/01/19 07:30 ALT 16 U/L (13-61) 06/01/19 07:30 Alkaline Phosphatase 132 U/L (45-117) H 06/01/19 07:30 Total Protein 6.6 g/dl (6.4-8.2) 06/01/19 07:30 Albumin 2.8 g/dl (3.4-5.0) L 06/01/19 07:30 TSH 1.36 uIU/ml (0.358-3.74) D 05/29/19 14:00 Thyroxine (T4) 7.7 ug/dl (4.5-13.9) 05/29/19 14:00 Microbiology 05/30/19 03:48 Stool Salmonella/Shigella Culture - Preliminary NO ENTERIC PATHOGENS, 24 HOURS, ON PRIMARY PLATES 05/30/19 03:48 Stool Yersinia Culture - Preliminary NO ENTERIC PATHOGENS, 24 HOURS, ON PRIMARY PLATES 05/30/19 03:48 Stool Vibrio Culture - Final NO GROWTH OF VIBRIO SPECIES OBTAINED 05/30/19 03:48 Stool Escherichia coli 0157 Culture - Final NO GROWTH OF E COLI 0157 OBTAINED Vital Signs Temp 97.9 F 06/01/19 05:52 Pulse 78 06/01/19 05:52 Resp 20 06/01/19 05:52 BP 120/63 06/01/19 05:52 Pulse Ox 97 05/31/19 21:00 Intake & Output 05/31/19 05/31/19 06/01/19 11:59 23:59 11:59 Intake Total 1160 Output Total 300 200 300 Balance -300 960 -300 Intake: IV 10 s/l 10 Oral 1150 Output: Urine 300 200 300 Void 300 200 300 Other: Voiding Method Urinal Urinal Bowel Movement No No Yes Hospital Course: Patient is a 63 y/o male with past medical history of ESRD on HD T-Th-S, HTN, B/ L BKA, Diastolic CHF, Anemia, MRSA Bactermia s/s osteomylitis. Patient presented from dialysis center to [facility] for dialysis shunt malfunction and hypoglycemic with BS 30mg/dL. In ER Arterial Duplex of shunt performed and showed extensive thrombus within the draining vein of AV dialysis fistula. Vascular and Renal consulted. Arterial Duplex of shunt performed and showed extensive thrombus within the draining vein of AV dialysis fistula. Vascular on board and is POD #1 venogram , suction thrombectomy, venoplasty left avg. Fistula is cleared for use and is currently receiving HD. Hg 7.7 but is receiving Epoeitin and Iron IV during HD. CBC should be repeated on Saturday at SNF. Condition: Stable - Instructions Diet, Activity, Other Instructions: Follow up with PCP 2 weeks post discharge follow up with Team Lead Dr Aniyah Willard continue HD on scheduled days check for thrill qshift of AV fistula Hg 7.7 received Iron and Epoeitin in HD, monitor CBC on Saturday renal diet continue with medication as prescribed return to ER if Fistula malfunction, respiratory distress, chest pain Referrals: Aniyah Chaudhry MD [Staff Physician] - Disposition: [facility] F[facility] - Home Medications Comprehensive Discharge Medication List: Ambulatory Orders Fluticasone Prop 0.05% Nasal [Flonase -] 1 - 2 spray NS DAILY #1 spray.pump Lidocaine 5% Patch [Lidoderm -] 1 patch TP DAILY patch 10/06/17 traZODone HCL [Desyrel -] 450 mg PO HS 04/07/19 Vitamin B Comp W-C [Nephro-Guilherme -] 1 tablet PO DAILY #30 tablet 04/20/19 Doxazosin Mesylate 4 mg PO DAILY 05/11/19 Gabapentin 100 mg PO BID 05/11/19 Nifedipine ER [Procardia XL -] 90 mg PO DAILY 05/11/19 Albuterol 0.083% Nebulizer Coretta [Ventolin 0.083% Nebulizer Soln -] 1 neb NEB Q6H PRN 30 Days vial 05/23/19 Bacitracin - [Bacitracin Topical Ointment -] 1 applic TP BID tube 05/23/19 Torsemide [Demadex -] 80 mg PO DAILY 30 Days #30 tablet 05/23/19 Hydralazine HCl 25 mg PO TID 05/28/19 Insulin Detemir [Levemir Flextouch] 3 unit SQ BID 05/28/19 Insulin Lispro [Admelog Solostar] 1 units SQ ASDIR 05/28/19 Methadone HCl 2.5 mg PO TID 05/28/19 Tiotropium [place] [Spiriva Respimat] 1 inh .ROUTE BID 05/28/19 traZODone HCL [Desyrel -] 450 mg PO HS tablet 05/30/19 Prescription Drug Monitoring Program (I-STOP) results: I-STOP reviewed and no issues identified
[2019-06-01 11:31] VITALS: BP 146/77; PULSE 86
--- NOTE | 2019-06-10 17:25 | OP ---
DATE OF OPERATION: 05/29/2019 PREOPERATIVE DIAGNOSIS: Clotted left arteriovenous graft. POSTOPERATIVE DIAGNOSIS: Clotted left arteriovenous graft. PROCEDURE: Venogram, suction thrombectomy, venoplasty left arteriovenous graft. SURGEON: Al Castillo MD. ANESTHESIA: Fractional. BLOOD LOSS: 50 mL. INDICATION: The patient is a 63-year-old male that comes in with a clotted left AV graft from hemodialysis. He came into the ER, was admitted to the hospital. Patient was consented for the procedure understanding all risks, benefits, and alternatives and then brought to the operating room. DESCRIPTION OF PROCEDURE: Once in the operating room, he was laid on the operating table in a supine manner, and the area of the left arm are prepped and draped in a sterile surgical manner. We then injected 2 mL of lidocaine 1% over the proximal AV graft above the arterial anastomosis. We then went ahead and took our Micropuncture needle and punctured the graft. Micropuncture wire was inserted, Micropuncture sheath was inserted, and a traditional short 6-Congolese sheath was inserted. We then shot a venogram showing that there was clot in the graft, and there was severe stenosis at the venous anastomosis. At this point we placed our 0.035 floppy guidewire into the graft and navigated it across the venous anastomosis. We then used an AV thrombectomy catheter, and we were able to perform suction thrombectomy of the entire graft, all the way into the central vein. We then shot a venogram showing that the graft was patent, but there was a severe stenosis of about 80 or 90 percent at the venous anastomosis. We then went ahead and used a 9 x 8 balloon Ultraverse. We then administered 5000 units of IV heparin to the patient. We then used a 9 x 8 Ultraverse balloon and performed venoplasty of the outflow vein and the venous anastomosis and the graft. Completion venogram now showed that the graft was patient, and the venous anastomosis was patent. We then went to the distal graft and 5 mL of lidocaine 1% was injected there. We then went ahead and used our micropuncture needle and punctured the graft, micropuncture inserted and a short 6 Congolese sheath was placed towards the arterial anastomosis. We went ahead and placed our 0.035 floppy guidewire across the anastomosis. We then used our AV thrombectomy catheter and performed suction thrombectomy of the proximal AV graft all the way to the arterial anastomosis. We then went ahead and used a 6 x 4 Ultraverse balloon and performed venoplasty of the AV graft above the anastomosis. As soon as we did that, the graft became patent, and there was good flow through it, there was a good thrill and bruit in it. Completion of venogram now showed that the graft was patent without any stenosis, and there was a good thrill in it. At this point, we used a 4-0 Biosyn stitch and a [id number] stitch was placed around the sheath, and the sheathes were pulled. Area was then dried. Dermabond was placed. Patient tolerated the procedure without complications. Patient was transferred to PACU in stable condition and will then go to hemodialysis. AL CASTILLO DO [id number]
== END 2019-06-01 12:31 | DRG 252 ==
LOC: JER 08:10 → JERBED 10:00 → J6S 20:43
PROVIDERS: ADMIT Family Medicine; ATTEND Family Medicine
PROC: B50NYZZ Plain Radiography of Left Upper Extremity Veins using Other Contrast (ICD-10-PCS; 2019-05-29)
PROC: 05CY3ZZ Extirpation of Matter from Upper Vein, Percutaneous Approach (ICD-10-PCS; principal; 2019-05-29 09:30)
PROC: 057Y3ZZ Dilation of Upper Vein, Percutaneous Approach (ICD-10-PCS; 2019-05-29 09:30)
DX: T82.868A Thrombosis due to vascular prosthetic devices, implants and grafts, initial encounter (principal); N18.6 End stage renal disease; I50.30 Unspecified diastolic (congestive) heart failure; I13.2 Hypertensive heart and chronic kidney disease with heart failure and with stage 5 chronic kidney disease, or end stage renal disease; E11.649 Type 2 diabetes mellitus with hypoglycemia without coma; E87.5 Hyperkalemia; I25.10 Atherosclerotic heart disease of native coronary artery without angina pectoris; E11.311 Type 2 diabetes mellitus with unspecified diabetic retinopathy with macular edema; K21.9 Gastro-esophageal reflux disease without esophagitis; D64.9 Anemia, unspecified; Y83.9 Surgical procedure, unspecified as the cause of abnormal reaction of the patient, or of later complication, without mention of misadventure at the time of the procedure; Z79.4 Long term (current) use of insulin
CPT/HCPCS: 36415; 70450-TC; 72125-TC; 80048; 80053; 82550; 82728; 82962; 83036; 83540; 83550; 83735; 84100; 84436; 84443; 84484; 85025; 85027; 85610; 87045; 87046; 87177; 87209; 93005; 93010; 93971; 94640; 94760; 99283-25; 99285-25; J1644; J1756; Q5106

== ENCOUNTER 2019-07-16 16:01 | Inpatient (IN) | payer OTHER ==
[2019-07-16 18:55] LABS: BASO % 1.4 % (0-2.0); EOS % 1.8 % (0-4.5); HEMATOCRIT 28.9 % (35.4-49); LYMPH % 17.1 % (8-40); MCH 26.7 pg (25.7-33.7); MCHC 31.3 g/dl (32.0-35.9); MEAN CELL VOLUME 85.3 fl (80-96); MONO % 19.3 % (3.8-10.2); NEUT % 60.4 % (42.8-82.8); PLATELET COUNT 278 K/MM3 (134-434); RBC 3.39 M/mm3 (4.00-5.60); RDW 19.4 % (11.9-15.9); WHITE BLOOD COUNT 3.9 K/mm3 (4.0-10.0)
[2019-07-16 19:34] LABS: BILIRUBIN,TOTAL 0.3 mg/dL (0.2-1); BLOOD UREA NITROGEN 71.3 mg/dL (7-18); CALCIUM 7.4 mg/dL (8.5-10.1); TOT PROT 6.6 g/dl (6.4-8.2)
[2019-07-16 19:49] LABS: POTASSIUM 6.5 mmol/L (3.5-5.1)
[2019-07-16 19:50] LABS: CREATININE 8.7 mg/dL (0.55-1.3)
[2019-07-16] MEDS ORDERED: KETOROLAC TROMETHAMINE 30 MG/1 ML VIAL IM ONE (19:56)
[2019-07-16] MEDS ORDERED: EPOETIN ALFA-EPBX 10,000 UNIT/ML VIAL SQ ONE (20:08)
[2019-07-16 23:36] VITALS: BMI 27.8
[2019-07-17] MEDS ORDERED: LOPERAMIDE HCL 2 MG CAPSULE PO ONE ×2 (01:54→12:27)
[2019-07-17] MEDS ORDERED: EPOETIN ALFA-EPBX 10,000 UNIT/ML VIAL SQ ONE (06:45)
[2019-07-17] MEDS ORDERED: SODIUM CHLORIDE 250 ML IV PRN ×4 (08:10→08:11)
[2019-07-17 08:32] LABS: BASO % 0.7 % (0-2.0); HEMATOCRIT 26.9 % (35.4-49); HEMOGLOBIN 8.6 GM/dL (11.7-16.9); LYMPH % 21.9 % (8-40); MCH 26.5 pg (25.7-33.7); MCHC 31.8 g/dl (32.0-35.9); MEAN CELL VOLUME 83.3 fl (80-96); MEAN PLT VOLUME 7.1 fl (7.5-11.1); NEUT % 56.4 % (42.8-82.8); PLATELET COUNT 245 K/MM3 (134-434); RBC 3.23 M/mm3 (4.00-5.60); RDW 19.6 % (11.9-15.9); WHITE BLOOD COUNT 3.5 K/mm3 (4.0-10.0)
[2019-07-17 09:11] LABS: BLOOD UREA NITROGEN 46.2 mg/dL (7-18); CALCIUM 7.2 mg/dL (8.5-10.1); CREATININE 6.4 mg/dL (0.55-1.3); MAGNESIUM 2.1 mg/dL (1.8-2.4); PHOSPHOROUS 6.1 mg/dL (2.5-4.9); POTASSIUM 4.8 mmol/L (3.5-5.1)
[2019-07-17] MEDS ORDERED: TORSEMIDE 20 MG TABLET (FP) PO SCH (10:00)
[2019-07-17] MEDS: METHADONE HCL 5 MG TABLET PO SCH ×3 (10:36→21:51)
[2019-07-17] MEDS: VITAMIN B COMP W-C 1 EA TABLET (NEPHRO-VITE) PO SCH (10:37)
[2019-07-17] MEDS: DOXAZOSIN MESYLATE 4 MG TABLET PO SCH (10:37)
[2019-07-17] MEDS: NIFEdipine E.R. 90 MG TABLET PO SCH (10:37)
[2019-07-17] MEDS: GABAPENTIN 100 MG CAPSULE PO SCH ×3 (10:37→21:50)
[2019-07-17] MEDS: HEPARIN NA (PORCINE) 5,000 UNITS/ML 1ML VIAL SQ SCH ×2 (10:41→21:49)
[2019-07-17] MEDS: CALCIUM ACETATE 667 MG CAPSULE (FP) PO SCH ×3 (10:41→17:26)
[2019-07-17] MEDS: LIDOCAINE 5% TOPICAL PATCH TP SCH (10:41)
[2019-07-17] MEDS: TIOTROPIUM BROMIDE 2.5 MCG (SPIRIVA) RESPIMAT INHALER IH SCH ×2 (10:42→21:53)
[2019-07-17] MEDS: INSULIN (LEVEMIR) 100 UNITS/ML UNITS SQ SCH ×2 (10:44→22:14)
[2019-07-17] MEDS: hydrALAZINE HCL 50 MG TABLET (FP) PO SCH ×2 (13:16→21:50)
[2019-07-17] MEDS: TORSEMIDE 100 MG TABLET PO SCH ×2 (16:18→17:26)
[2019-07-17] MEDS ORDERED: PT OWN MED DRAWER 7, Y5N ONE (16:51)
[2019-07-17] MEDS: SODIUM ZIRCONIUM CYCLOSILICATE (LOKELMA) 5 GM PACKET PO SCH (17:23)
[2019-07-17] MEDS ORDERED: PIPERACILLIN/TAZOB 2.25 GM 2.25 GM in DEXTROSE 5%-WATER - 50 ML IVPB SCH (21:00)
[2019-07-17] MEDS ORDERED: DEXTROSE 5%-WATER - 50 ML IVPB ONE (21:35)
[2019-07-17] MEDS ORDERED: PIPERACILLIN/TAZOBACTAM 2.25 GM VIAL IVPB ONE (21:35)
[2019-07-17] MEDS: traZODone HCL 50 MG TABLET (FP) PO SCH (21:51)
[2019-07-17] MEDS: PIPERACILLIN/TAZOB 2.25 GM 2.25 GM in DEXTROSE 5%-WATER - 50 ML IVPB SCH (21:52)
[2019-07-17] MEDS: LIDOCAINE PATCH REMOVAL MC SCH (21:53)
[2019-07-18] MEDS ORDERED: PIPERACILLIN/TAZOBACTAM 2.25 GM VIAL IVPB ONE ×4 (03:54→16:37)
[2019-07-18] MEDS ORDERED: DEXTROSE 5%-WATER - 50 ML IVPB ONE ×4 (03:55→16:37)
[2019-07-18] MEDS: PIPERACILLIN/TAZOB 2.25 GM 2.25 GM in DEXTROSE 5%-WATER - 50 ML IVPB SCH ×3 (05:45→14:30)
[2019-07-18] MEDS: METHADONE HCL 5 MG TABLET PO SCH ×3 (06:34→21:30)
[2019-07-18] MEDS: GABAPENTIN 100 MG CAPSULE PO SCH ×3 (06:34→21:30)
[2019-07-18] MEDS: INSULIN (LEVEMIR) 100 UNITS/ML UNITS SQ SCH ×2 (07:28→21:30)
[2019-07-18] MEDS ORDERED: PT OWN MED DRAWER 7, Y5N ONE ×3 (08:31→10:16)
[2019-07-18 08:48] LABS: BLOOD UREA NITROGEN 38.9 mg/dL (7-18); CREATININE 6.1 mg/dL (0.55-1.3); MAGNESIUM 2.1 mg/dL (1.8-2.4); PHOSPHOROUS 6.4 mg/dL (2.5-4.9); POTASSIUM 4.7 mmol/L (3.5-5.1)
[2019-07-18 09:14] LABS: CALCIUM 6.9 mg/dL (8.5-10.1)
[2019-07-18] MEDS: CALCIUM ACETATE 667 MG CAPSULE (FP) PO SCH ×3 (09:20→17:46)
[2019-07-18] MEDS: hydrALAZINE HCL 50 MG TABLET (FP) PO SCH ×2 (09:40→21:30)
[2019-07-18] MEDS: CALCIUM 250MG/VIT-D 125 UNITS 1 COMBO TABLET PO SCH (09:40)
[2019-07-18] MEDS: DOXAZOSIN MESYLATE 4 MG TABLET PO SCH (09:40)
[2019-07-18] MEDS: NIFEdipine E.R. 90 MG TABLET PO SCH (09:40)
[2019-07-18] MEDS: SODIUM ZIRCONIUM CYCLOSILICATE (LOKELMA) 5 GM PACKET PO SCH (09:45)
[2019-07-18] MEDS: LIDOCAINE 5% TOPICAL PATCH TP SCH (09:45)
[2019-07-18] MEDS: VITAMIN B COMP W-C 1 EA TABLET (NEPHRO-VITE) PO SCH (09:45)
[2019-07-18] MEDS: HEPARIN NA (PORCINE) 5,000 UNITS/ML 1ML VIAL SQ SCH ×2 (10:46→23:33)
[2019-07-18] MEDS: TORSEMIDE 100 MG TABLET PO SCH (10:46)
[2019-07-18] MEDS: CALCITRIOL 0.25 MCG CAPSULE (FP) PO SCH (10:47)
[2019-07-18] MEDS: TIOTROPIUM BROMIDE 2.5 MCG (SPIRIVA) RESPIMAT INHALER IH SCH ×2 (10:48→23:35)
[2019-07-18] MEDS: LOPERAMIDE HCL 2 MG CAPSULE PO PRN (11:42)
[2019-07-18] MEDS: traZODone HCL 50 MG TABLET (FP) PO SCH (21:30)
[2019-07-18] MEDS: INSULIN SLIDING SCALE (NOVOLOG) 1 VIAL SQ SCH (23:35)
[2019-07-19] MEDS: GABAPENTIN 100 MG CAPSULE PO SCH ×3 (06:56→22:09)
[2019-07-19] MEDS: METHADONE HCL 5 MG TABLET PO SCH ×3 (06:56→22:09)
[2019-07-19] MEDS: LIDOCAINE PATCH REMOVAL MC SCH ×2 (06:56→22:11)
[2019-07-19] MEDS: INSULIN (LEVEMIR) 100 UNITS/ML UNITS SQ SCH ×2 (06:56→22:10)
[2019-07-19] MEDS: INSULIN SLIDING SCALE (NOVOLOG) 1 VIAL SQ SCH ×4 (06:57→22:12)
[2019-07-19] MEDS: CALCIUM ACETATE 667 MG CAPSULE (FP) PO SCH ×3 (10:15→17:59)
[2019-07-19] MEDS: hydrALAZINE HCL 50 MG TABLET (FP) PO SCH ×2 (10:15→22:09)
[2019-07-19] MEDS: DOXAZOSIN MESYLATE 4 MG TABLET PO SCH (10:15)
[2019-07-19] MEDS: HEPARIN NA (PORCINE) 5,000 UNITS/ML 1ML VIAL SQ SCH ×2 (10:16→22:10)
[2019-07-19] MEDS: LIDOCAINE 5% TOPICAL PATCH TP SCH (10:16)
[2019-07-19] MEDS: SODIUM ZIRCONIUM CYCLOSILICATE (LOKELMA) 5 GM PACKET PO SCH (10:17)
[2019-07-19] MEDS: TIOTROPIUM BROMIDE 2.5 MCG (SPIRIVA) RESPIMAT INHALER IH SCH ×2 (10:17→22:12)
[2019-07-19] MEDS: CALCIUM 250MG/VIT-D 125 UNITS 1 COMBO TABLET PO SCH (10:17)
[2019-07-19] MEDS: NIFEdipine E.R. 90 MG TABLET PO SCH (10:17)
[2019-07-19] MEDS: CALCITRIOL 0.25 MCG CAPSULE (FP) PO SCH (10:17)
[2019-07-19] MEDS: TORSEMIDE 100 MG TABLET PO SCH (10:43)
[2019-07-19] MEDS: VITAMIN B COMP W-C 1 EA TABLET (NEPHRO-VITE) PO SCH (10:43)
[2019-07-19] MEDS: LOPERAMIDE HCL 2 MG CAPSULE PO PRN ×2 (13:51→21:00)
[2019-07-19 14:09] LABS: BASO % 1.1 % (0-2.0); EOS % 4.1 % (0-4.5); HEMOGLOBIN 9.3 GM/dL (11.7-16.9); LYMPH % 23.2 % (8-40); MCH 26.7 pg (25.7-33.7); MCHC 32.2 g/dl (32.0-35.9); MEAN CELL VOLUME 83.1 fl (80-96); MEAN PLT VOLUME 7.1 fl (7.5-11.1); MONO % 12.8 % (3.8-10.2); NEUT % 58.8 % (42.8-82.8); PLATELET COUNT 226 K/MM3 (134-434); RBC 3.49 M/mm3 (4.00-5.60); RDW 19.7 % (11.9-15.9); WHITE BLOOD COUNT 3.4 K/mm3 (4.0-10.0)
[2019-07-19 14:35] LABS: ALBUMIN 2.7 g/dl (3.4-5.0); BILIRUBIN,TOTAL 0.3 mg/dL (0.2-1); BLOOD UREA NITROGEN 50.4 mg/dL (7-18); CALCIUM 7.2 mg/dL (8.5-10.1); POTASSIUM 4.8 mmol/L (3.5-5.1); TOT PROT 6.5 g/dl (6.4-8.2)
[2019-07-19 14:51] LABS: CREATININE 8.1 mg/dL (0.55-1.3)
[2019-07-19] MEDS ORDERED: DEXTROSE 5%-WATER - 50 ML IVPB ONE (17:20)
[2019-07-19] MEDS ORDERED: PIPERACILLIN/TAZOBACTAM 2.25 GM VIAL IVPB ONE (17:20)
[2019-07-19] MEDS: PIPERACILLIN/TAZOB 2.25 GM 2.25 GM in DEXTROSE 5%-WATER - 50 ML IVPB SCH (19:03)
[2019-07-19] MEDS: traZODone HCL 50 MG TABLET (FP) PO SCH (22:09)
[2019-07-20] MEDS ORDERED: PIPERACILLIN/TAZOBACTAM 2.25 GM VIAL IVPB ONE ×3 (01:21→16:59)
[2019-07-20] MEDS ORDERED: DEXTROSE 5%-WATER - 50 ML IVPB ONE ×3 (01:21→16:59)
[2019-07-20] MEDS: PIPERACILLIN/TAZOB 2.25 GM 2.25 GM in DEXTROSE 5%-WATER - 50 ML IVPB SCH ×3 (02:30→17:36)
[2019-07-20] MEDS: METHADONE HCL 5 MG TABLET PO SCH ×3 (06:00→22:03)
[2019-07-20] MEDS: GABAPENTIN 100 MG CAPSULE PO SCH ×3 (06:00→22:04)
[2019-07-20] MEDS: INSULIN SLIDING SCALE (NOVOLOG) 1 VIAL SQ SCH ×4 (07:21→22:06)
[2019-07-20] MEDS: INSULIN (LEVEMIR) 100 UNITS/ML UNITS SQ SCH ×2 (07:21→22:05)
[2019-07-20 08:20] LABS: BASO % 0.7 % (0-2.0); EOS % 6.4 % (0-4.5); HEMATOCRIT 29.3 % (35.4-49); HEMOGLOBIN 9.5 GM/dL (11.7-16.9); MCH 26.8 pg (25.7-33.7); MCHC 32.4 g/dl (32.0-35.9); MEAN CELL VOLUME 82.9 fl (80-96); MEAN PLT VOLUME 7.4 fl (7.5-11.1); MONO % 11.5 % (3.8-10.2); NEUT % 56.4 % (42.8-82.8); PLATELET COUNT 238 K/MM3 (134-434); RBC 3.54 M/mm3 (4.00-5.60); RDW 19.6 % (11.9-15.9); WHITE BLOOD COUNT 3.2 K/mm3 (4.0-10.0)
[2019-07-20 08:50] LABS: ALBUMIN 2.4 g/dl (3.4-5.0); BILIRUBIN,TOTAL 0.3 mg/dL (0.2-1); BLOOD UREA NITROGEN 56.2 mg/dL (7-18); CALCIUM 7.1 mg/dL (8.5-10.1); MAGNESIUM 2.1 mg/dL (1.8-2.4); POTASSIUM 5.3 mmol/L (3.5-5.1); TOT PROT 5.8 g/dl (6.4-8.2)
[2019-07-20 09:13] LABS: CREATININE 8.8 mg/dL (0.55-1.3)
[2019-07-20] MEDS ORDERED: SODIUM CHLORIDE 250 ML IV PRN (10:27)
[2019-07-20] MEDS ORDERED: EPOETIN ALFA 10,000 UNIT/1 ML VIAL IVPUSH ONE (11:00)
[2019-07-20] MEDS: CALCIUM ACETATE 667 MG CAPSULE (FP) PO SCH ×3 (13:04→17:33)
[2019-07-20] MEDS: hydrALAZINE HCL 50 MG TABLET (FP) PO SCH ×3 (14:59→22:42)
[2019-07-20] MEDS: TORSEMIDE 100 MG TABLET PO SCH (15:00)
[2019-07-20] MEDS: DOXAZOSIN MESYLATE 4 MG TABLET PO SCH (15:00)
[2019-07-20] MEDS: HEPARIN NA (PORCINE) 5,000 UNITS/ML 1ML VIAL SQ SCH ×3 (15:00→22:18)
[2019-07-20] MEDS: CALCIUM 250MG/VIT-D 125 UNITS 1 COMBO TABLET PO SCH (15:01)
[2019-07-20] MEDS: LIDOCAINE 5% TOPICAL PATCH TP SCH (15:01)
[2019-07-20] MEDS: VITAMIN B COMP W-C 1 EA TABLET (NEPHRO-VITE) PO SCH (15:01)
[2019-07-20] MEDS: SODIUM ZIRCONIUM CYCLOSILICATE (LOKELMA) 5 GM PACKET PO SCH (15:01)
[2019-07-20] MEDS: TIOTROPIUM BROMIDE 2.5 MCG (SPIRIVA) RESPIMAT INHALER IH SCH (15:02)
[2019-07-20] MEDS: NIFEdipine E.R. 90 MG TABLET PO SCH (15:02)
[2019-07-20] MEDS: CALCITRIOL 0.25 MCG CAPSULE (FP) PO SCH (15:02)
[2019-07-20 19:11] LABS: HEP B CORE AB, TOT Positive (Negative)
[2019-07-20] MEDS ORDERED: INSULIN (LEVEMIR) 100 UNITS/ML UNITS SQ ONE (21:33)
[2019-07-20] MEDS: TRAZODONE HCL PO SCH (22:03)
[2019-07-20] MEDS: ACETAMINOPHEN 325 MG TABLET (FP) PO PRN (22:04)
[2019-07-20] MEDS: LIDOCAINE PATCH REMOVAL MC SCH (22:04)
[2019-07-21] MEDS ORDERED: PT OWN MED DRAWER 7, Y5N ONE ×2 (01:08→21:34)
[2019-07-21] MEDS ORDERED: DEXTROSE 5%-WATER - 50 ML IVPB ONE ×3 (01:10→16:45)
[2019-07-21] MEDS ORDERED: PIPERACILLIN/TAZOBACTAM 2.25 GM VIAL IVPB ONE ×3 (01:10→16:44)
[2019-07-21] MEDS: PIPERACILLIN/TAZOB 2.25 GM 2.25 GM in DEXTROSE 5%-WATER - 50 ML IVPB SCH ×3 (01:36→18:05)
[2019-07-21] MEDS ORDERED: DEXTROSE 50%-WATER - 25 GM/50 ML VIAL IVPUSH ONE ×3 (03:18→03:45)
[2019-07-21] MEDS ORDERED: DEXTROSE 50%-WATER 25 GM/50 ML DISP.SYRIN ONE (03:24)
[2019-07-21] MEDS: GABAPENTIN 100 MG CAPSULE PO SCH ×3 (05:52→22:36)
[2019-07-21] MEDS: METHADONE HCL 5 MG TABLET PO SCH ×3 (05:53→22:34)
[2019-07-21] MEDS: INSULIN (LEVEMIR) 100 UNITS/ML UNITS SQ SCH ×2 (07:29→22:36)
[2019-07-21] MEDS: INSULIN SLIDING SCALE (NOVOLOG) 1 VIAL SQ SCH ×4 (07:29→22:36)
[2019-07-21] MEDS: hydrALAZINE HCL 50 MG TABLET (FP) PO SCH ×2 (12:31→22:35)
[2019-07-21] MEDS: HEPARIN NA (PORCINE) 5,000 UNITS/ML 1ML VIAL SQ SCH ×2 (12:31→22:35)
[2019-07-21] MEDS: DOXAZOSIN MESYLATE 4 MG TABLET PO SCH (12:31)
[2019-07-21] MEDS: TORSEMIDE 100 MG TABLET PO SCH (12:31)
[2019-07-21] MEDS: CALCIUM ACETATE 667 MG CAPSULE (FP) PO SCH ×3 (12:31→17:30)
[2019-07-21] MEDS: LIDOCAINE 5% TOPICAL PATCH TP SCH (12:32)
[2019-07-21] MEDS: CALCIUM 250MG/VIT-D 125 UNITS 1 COMBO TABLET PO SCH (12:32)
[2019-07-21] MEDS: VITAMIN B COMP W-C 1 EA TABLET (NEPHRO-VITE) PO SCH (12:32)
[2019-07-21] MEDS: TIOTROPIUM BROMIDE 2.5 MCG (SPIRIVA) RESPIMAT INHALER IH SCH (12:32)
[2019-07-21] MEDS: SODIUM ZIRCONIUM CYCLOSILICATE (LOKELMA) 5 GM PACKET PO SCH (12:32)
[2019-07-21] MEDS: NIFEdipine E.R. 90 MG TABLET PO SCH (12:32)
[2019-07-21] MEDS: CALCITRIOL 0.25 MCG CAPSULE (FP) PO SCH (12:32)
[2019-07-21 13:49] LABS: BASO % 0.7 % (0-2.0); EOS % 1.7 % (0-4.5); HEMATOCRIT 29.6 % (35.4-49); HEMOGLOBIN 9.4 GM/dL (11.7-16.9); LYMPH % 14.7 % (8-40); MCH 26.5 pg (25.7-33.7); MCHC 31.7 g/dl (32.0-35.9); MEAN CELL VOLUME 83.7 fl (80-96); MEAN PLT VOLUME 7.3 fl (7.5-11.1); MONO % 14.4 % (3.8-10.2); NEUT % 68.5 % (42.8-82.8); PLATELET COUNT 218 K/MM3 (134-434); RBC 3.54 M/mm3 (4.00-5.60); WHITE BLOOD COUNT 3.4 K/mm3 (4.0-10.0)
[2019-07-21 14:15] LABS: ALBUMIN 2.5 g/dl (3.4-5.0); BILIRUBIN,TOTAL 0.3 mg/dL (0.2-1); BLOOD UREA NITROGEN 35.2 mg/dL (7-18); MAGNESIUM 1.8 mg/dL (1.8-2.4)
[2019-07-21] MEDS: TRAZODONE HCL PO SCH (22:35)
[2019-07-21] MEDS: LIDOCAINE PATCH REMOVAL MC SCH (22:36)
[2019-07-21] MEDS: ACETAMINOPHEN 325 MG TABLET (FP) PO PRN (22:37)
[2019-07-22] MEDS ORDERED: PIPERACILLIN/TAZOBACTAM 2.25 GM VIAL IVPB ONE ×3 (02:14→17:02)
[2019-07-22] MEDS ORDERED: DEXTROSE 5%-WATER - 50 ML IVPB ONE ×3 (02:14→17:03)
[2019-07-22] MEDS: PIPERACILLIN/TAZOB 2.25 GM 2.25 GM in DEXTROSE 5%-WATER - 50 ML IVPB SCH ×3 (02:33→17:30)
[2019-07-22] MEDS: GABAPENTIN 100 MG CAPSULE PO SCH ×3 (06:45→22:30)
[2019-07-22] MEDS: METHADONE HCL 5 MG TABLET PO SCH ×3 (06:45→22:28)
[2019-07-22] MEDS: ACETAMINOPHEN 325 MG TABLET (FP) PO PRN ×3 (07:00→23:45)
[2019-07-22] MEDS: INSULIN (LEVEMIR) 100 UNITS/ML UNITS SQ SCH ×2 (07:05→22:25)
[2019-07-22] MEDS: INSULIN SLIDING SCALE (NOVOLOG) 1 VIAL SQ SCH ×4 (07:05→22:25)
[2019-07-22 08:06] LABS: BASO % 1.2 % (0-2.0); EOS % 1.5 % (0-4.5); HEMATOCRIT 28.7 % (35.4-49); HEMOGLOBIN 9.2 GM/dL (11.7-16.9); LYMPH % 14.6 % (8-40); MCH 26.6 pg (25.7-33.7); MCHC 32.1 g/dl (32.0-35.9); MEAN PLT VOLUME 7.7 fl (7.5-11.1); MONO % 7.9 % (3.8-10.2); NEUT % 74.8 % (42.8-82.8); PLATELET COUNT 247 K/MM3 (134-434); RBC 3.46 M/mm3 (4.00-5.60); RDW 19.6 % (11.9-15.9); WHITE BLOOD COUNT 4.4 K/mm3 (4.0-10.0)
[2019-07-22 08:36] LABS: ALBUMIN 2.4 g/dl (3.4-5.0); BILIRUBIN,TOTAL 0.3 mg/dL (0.2-1); BLOOD UREA NITROGEN 42.7 mg/dL (7-18); MAGNESIUM 2.1 mg/dL (1.8-2.4); POTASSIUM 5.2 mmol/L (3.5-5.1); TOT PROT 6.1 g/dl (6.4-8.2)
[2019-07-22 08:45] LABS: CREATININE 7.9 mg/dL (0.55-1.3)
[2019-07-22] MEDS ORDERED: SODIUM CHLORIDE 250 ML IV PRN (09:48)
[2019-07-22] MEDS ORDERED: EPOETIN ALFA-EPBX 10,000 UNIT/ML VIAL IVPUSH ONE (10:30)
[2019-07-22] MEDS: LIDOCAINE 5% TOPICAL PATCH TP SCH (12:04)
[2019-07-22] MEDS: CALCIUM ACETATE 667 MG CAPSULE (FP) PO SCH ×3 (12:23→17:30)
[2019-07-22] MEDS: HEPARIN NA (PORCINE) 5,000 UNITS/ML 1ML VIAL SQ SCH ×2 (12:24→22:24)
[2019-07-22] MEDS ORDERED: PT OWN MED DRAWER 7, Y5N ONE ×2 (14:27→22:28)
[2019-07-22] MEDS: DOXAZOSIN MESYLATE 4 MG TABLET PO SCH (14:39)
[2019-07-22] MEDS: TORSEMIDE 100 MG TABLET PO SCH (14:39)
[2019-07-22] MEDS: VITAMIN B COMP W-C 1 EA TABLET (NEPHRO-VITE) PO SCH (14:40)
[2019-07-22] MEDS: CALCITRIOL 0.25 MCG CAPSULE (FP) PO SCH (14:40)
[2019-07-22] MEDS: hydrALAZINE HCL 50 MG TABLET (FP) PO SCH ×2 (14:40→22:29)
[2019-07-22] MEDS: TIOTROPIUM BROMIDE 2.5 MCG (SPIRIVA) RESPIMAT INHALER IH SCH (14:41)
[2019-07-22] MEDS: CALCIUM 250MG/VIT-D 125 UNITS 1 COMBO TABLET PO SCH (14:41)
[2019-07-22] MEDS: SODIUM ZIRCONIUM CYCLOSILICATE (LOKELMA) 5 GM PACKET PO SCH (14:41)
[2019-07-22] MEDS: NIFEdipine E.R. 90 MG TABLET PO SCH (14:59)
[2019-07-22] MEDS ORDERED: traZODone HCL 50 MG TABLET (FP) ONE (22:27)
[2019-07-22] MEDS ORDERED: traZODone HCL 100 MG TABLET (FP) ONE (22:27)
[2019-07-22] MEDS: TRAZODONE HCL PO SCH (22:29)
[2019-07-22] MEDS: metroNIDAZOLE 500 MG TABLET PO SCH (22:31)
[2019-07-22] MEDS: LIDOCAINE PATCH REMOVAL MC SCH (22:42)
[2019-07-23] MEDS ORDERED: DEXTROSE 5%-WATER - 50 ML IVPB ONE ×2 (01:09→09:10)
[2019-07-23] MEDS ORDERED: PIPERACILLIN/TAZOBACTAM 2.25 GM VIAL IVPB ONE ×2 (01:09→09:09)
[2019-07-23] MEDS: PIPERACILLIN/TAZOB 2.25 GM 2.25 GM in DEXTROSE 5%-WATER - 50 ML IVPB SCH ×2 (01:24→09:24)
[2019-07-23] MEDS: METHADONE HCL 5 MG TABLET PO SCH ×3 (06:12→22:27)
[2019-07-23] MEDS: metroNIDAZOLE 500 MG TABLET PO SCH (06:13)
[2019-07-23] MEDS: GABAPENTIN 100 MG CAPSULE PO SCH ×3 (06:13→22:27)
[2019-07-23] MEDS: INSULIN SLIDING SCALE (NOVOLOG) 1 VIAL SQ SCH ×4 (06:25→22:27)
[2019-07-23] MEDS: INSULIN (LEVEMIR) 100 UNITS/ML UNITS SQ SCH ×2 (06:25→22:27)
[2019-07-23 07:54] LABS: BLOOD UREA NITROGEN 27.6 mg/dL (7-18); CREATININE 6.2 mg/dL (0.55-1.3); POTASSIUM 4.3 mmol/L (3.5-5.1)
[2019-07-23] MEDS ORDERED: PT OWN MED DRAWER 7, Y5N ONE (09:09)
[2019-07-23] MEDS: SODIUM ZIRCONIUM CYCLOSILICATE (LOKELMA) 5 GM PACKET PO SCH (09:24)
[2019-07-23] MEDS: NIFEdipine E.R. 90 MG TABLET PO SCH (09:25)
[2019-07-23] MEDS: CALCIUM 250MG/VIT-D 125 UNITS 1 COMBO TABLET PO SCH (09:25)
[2019-07-23] MEDS: CALCIUM ACETATE 667 MG CAPSULE (FP) PO SCH ×3 (09:25→18:02)
[2019-07-23] MEDS: VITAMIN B COMP W-C 1 EA TABLET (NEPHRO-VITE) PO SCH (09:25)
[2019-07-23] MEDS: CALCITRIOL 0.25 MCG CAPSULE (FP) PO SCH (09:26)
[2019-07-23] MEDS: hydrALAZINE HCL 50 MG TABLET (FP) PO SCH ×2 (09:26→22:26)
[2019-07-23] MEDS: DOXAZOSIN MESYLATE 4 MG TABLET PO SCH (09:26)
[2019-07-23] MEDS: ACETAMINOPHEN 325 MG TABLET (FP) PO PRN (09:26)
[2019-07-23] MEDS: TIOTROPIUM BROMIDE 2.5 MCG (SPIRIVA) RESPIMAT INHALER IH SCH (09:36)
[2019-07-23] MEDS: LIDOCAINE 5% TOPICAL PATCH TP SCH (09:36)
[2019-07-23] MEDS: HEPARIN NA (PORCINE) 5,000 UNITS/ML 1ML VIAL SQ SCH ×2 (09:36→21:36)
[2019-07-23] MEDS: TORSEMIDE 100 MG TABLET PO SCH (09:37)
[2019-07-23] MEDS: VANCOMYCIN 250 MG/5 ML ORAL SOLUTION PO SCH ×3 (12:46→23:03)
[2019-07-23] MEDS ORDERED: traZODone HCL 100 MG TABLET (FP) ONE (21:12)
[2019-07-23] MEDS ORDERED: traZODone HCL 50 MG TABLET (FP) ONE (21:12)
[2019-07-23] MEDS: LIDOCAINE PATCH REMOVAL MC SCH (21:36)
[2019-07-23] MEDS: TRAZODONE HCL PO SCH (22:26)
[2019-07-24] MEDS: INSULIN SLIDING SCALE (NOVOLOG) 1 VIAL SQ SCH ×4 (06:12→22:17)
[2019-07-24] MEDS: VANCOMYCIN 250 MG/5 ML ORAL SOLUTION PO SCH ×3 (06:12→17:16)
[2019-07-24] MEDS: GABAPENTIN 100 MG CAPSULE PO SCH ×3 (06:12→21:56)
[2019-07-24] MEDS: INSULIN (LEVEMIR) 100 UNITS/ML UNITS SQ SCH ×2 (06:12→22:17)
[2019-07-24 08:54] LABS: BLOOD UREA NITROGEN 35.3 mg/dL (7-18); POTASSIUM 4.5 mmol/L (3.5-5.1)
[2019-07-24 09:10] LABS: CREATININE 7.6 mg/dL (0.55-1.3)
[2019-07-24 09:11] LABS: CALCIUM 6.9 mg/dL (8.5-10.1)
[2019-07-24] MEDS ORDERED: PT OWN MED DRAWER 7, Y5N ONE ×2 (09:15→10:21)
[2019-07-24] MEDS: LIDOCAINE 5% TOPICAL PATCH TP SCH (09:29)
[2019-07-24] MEDS: VITAMIN B COMP W-C 1 EA TABLET (NEPHRO-VITE) PO SCH (09:30)
[2019-07-24] MEDS: TORSEMIDE 100 MG TABLET PO SCH (09:30)
[2019-07-24] MEDS: CALCIUM 250MG/VIT-D 125 UNITS 1 COMBO TABLET PO SCH (09:30)
[2019-07-24] MEDS: CALCIUM ACETATE 667 MG CAPSULE (FP) PO SCH ×3 (09:30→17:15)
[2019-07-24] MEDS: HEPARIN NA (PORCINE) 5,000 UNITS/ML 1ML VIAL SQ SCH ×2 (09:30→21:56)
[2019-07-24] MEDS: hydrALAZINE HCL 50 MG TABLET (FP) PO SCH ×2 (09:30→21:56)
[2019-07-24] MEDS: CALCITRIOL 0.25 MCG CAPSULE (FP) PO SCH (12:13)
[2019-07-24] MEDS: NIFEdipine E.R. 90 MG TABLET PO SCH (12:21)
[2019-07-24] MEDS: ACETAMINOPHEN 325 MG TABLET (FP) PO PRN (12:21)
[2019-07-24] MEDS: DOXAZOSIN MESYLATE 4 MG TABLET PO SCH (12:21)
[2019-07-24] MEDS: SODIUM ZIRCONIUM CYCLOSILICATE (LOKELMA) 5 GM PACKET PO SCH (12:28)
[2019-07-24] MEDS: AZITHROMYCIN 250 MG TABLET PO SCH (13:37)
[2019-07-24] MEDS: TIOTROPIUM BROMIDE 2.5 MCG (SPIRIVA) RESPIMAT INHALER IH SCH (13:43)
[2019-07-24] MEDS: LIDOCAINE PATCH REMOVAL MC SCH (22:17)
[2019-07-24] MEDS: TRAZODONE HCL PO SCH (22:17)
[2019-07-25] MEDS: VANCOMYCIN 250 MG/5 ML ORAL SOLUTION PO SCH ×5 (00:41→23:34)
[2019-07-25] MEDS: ACETAMINOPHEN 325 MG TABLET (FP) PO PRN ×2 (02:59→22:53)
[2019-07-25] MEDS ORDERED: PT OWN MED DRAWER 7, Y5N ONE ×2 (03:03→22:49)
[2019-07-25] MEDS: GABAPENTIN 100 MG CAPSULE PO SCH ×3 (06:47→22:05)
[2019-07-25] MEDS: INSULIN (LEVEMIR) 100 UNITS/ML UNITS SQ SCH ×2 (07:39→22:04)
[2019-07-25] MEDS: INSULIN SLIDING SCALE (NOVOLOG) 1 VIAL SQ SCH ×4 (07:39→22:20)
[2019-07-25] MEDS: CALCIUM ACETATE 667 MG CAPSULE (FP) PO SCH ×3 (08:00→17:34)
[2019-07-25] MEDS: HEPARIN NA (PORCINE) 5,000 UNITS/ML 1ML VIAL SQ SCH ×2 (11:13→22:20)
[2019-07-25] MEDS: LIDOCAINE 5% TOPICAL PATCH TP SCH (11:13)
[2019-07-25] MEDS: SODIUM ZIRCONIUM CYCLOSILICATE (LOKELMA) 5 GM PACKET PO SCH (11:13)
[2019-07-25] MEDS: CALCIUM 250MG/VIT-D 125 UNITS 1 COMBO TABLET PO SCH (11:13)
[2019-07-25] MEDS: DOXAZOSIN MESYLATE 4 MG TABLET PO SCH (11:14)
[2019-07-25] MEDS: AZITHROMYCIN 250 MG TABLET PO SCH (11:14)
[2019-07-25] MEDS: CALCITRIOL 0.25 MCG CAPSULE (FP) PO SCH (11:15)
[2019-07-25] MEDS: hydrALAZINE HCL 50 MG TABLET (FP) PO SCH ×2 (11:15→22:19)
[2019-07-25] MEDS: NIFEdipine E.R. 90 MG TABLET PO SCH (11:15)
[2019-07-25] MEDS: VITAMIN B COMP W-C 1 EA TABLET (NEPHRO-VITE) PO SCH (11:15)
[2019-07-25] MEDS: TORSEMIDE 100 MG TABLET PO SCH (11:15)
[2019-07-25] MEDS: TIOTROPIUM BROMIDE 2.5 MCG (SPIRIVA) RESPIMAT INHALER IH SCH (11:16)
[2019-07-25] MEDS: METHADONE HCL 5 MG TABLET PO SCH (22:02)
[2019-07-25] MEDS: TRAZODONE HCL PO SCH (22:04)
[2019-07-25] MEDS: LIDOCAINE PATCH REMOVAL MC SCH (22:05)
[2019-07-26] MEDS: METHADONE HCL 5 MG TABLET PO SCH ×3 (06:19→21:22)
[2019-07-26] MEDS: GABAPENTIN 100 MG CAPSULE PO SCH ×3 (06:20→21:23)
[2019-07-26] MEDS: VANCOMYCIN 250 MG/5 ML ORAL SOLUTION PO SCH ×4 (06:21→23:14)
[2019-07-26] MEDS: INSULIN SLIDING SCALE (NOVOLOG) 1 VIAL SQ SCH ×4 (06:29→21:41)
[2019-07-26] MEDS: INSULIN (LEVEMIR) 100 UNITS/ML UNITS SQ SCH ×2 (06:29→21:40)
[2019-07-26] MEDS ORDERED: SODIUM CHLORIDE 250 ML IV PRN (08:24)
[2019-07-26] MEDS ORDERED: EPOETIN ALFA 10,000 UNIT/1 ML VIAL IVPUSH ONE (08:30)
[2019-07-26] MEDS: CALCIUM ACETATE 667 MG CAPSULE (FP) PO SCH ×4 (09:45→18:20)
[2019-07-26 09:48] LABS: BASO % 0.3 % (0-2.0); EOS % 2.9 % (0-4.5); HEMATOCRIT 28.7 % (35.4-49); HEMOGLOBIN 9.2 GM/dL (11.7-16.9); MCH 26.2 pg (25.7-33.7); MEAN CELL VOLUME 81.7 fl (80-96); MEAN PLT VOLUME 7.8 fl (7.5-11.1); MONO % 10.9 % (3.8-10.2); NEUT % 68.9 % (42.8-82.8); PLATELET COUNT 420 K/MM3 (134-434); RBC 3.52 M/mm3 (4.00-5.60); RDW 19.5 % (11.9-15.9); WHITE BLOOD COUNT 5.3 K/mm3 (4.0-10.0)
[2019-07-26 10:40] LABS: ALBUMIN 2.3 g/dl (3.4-5.0); BILIRUBIN,TOTAL 0.6 mg/dL (0.2-1); CALCIUM 7.4 mg/dL (8.5-10.1); MAGNESIUM 2.1 mg/dL (1.8-2.4); PHOSPHOROUS 6.6 mg/dL (2.5-4.9); POTASSIUM 4.5 mmol/L (3.5-5.1); TOT PROT 6.2 g/dl (6.4-8.2)
[2019-07-26 11:01] LABS: CREATININE 9.9 mg/dL (0.55-1.3)
[2019-07-26] MEDS ORDERED: PT OWN MED DRAWER 7, Y5N ONE (12:44)
[2019-07-26] MEDS: LIDOCAINE 5% TOPICAL PATCH TP SCH ×2 (12:59→21:21)
[2019-07-26] MEDS: HEPARIN NA (PORCINE) 5,000 UNITS/ML 1ML VIAL SQ SCH ×2 (12:59→21:22)
[2019-07-26] MEDS: TORSEMIDE 100 MG TABLET PO SCH (14:26)
[2019-07-26] MEDS: SODIUM ZIRCONIUM CYCLOSILICATE (LOKELMA) 5 GM PACKET PO SCH (14:26)
[2019-07-26] MEDS: hydrALAZINE HCL 50 MG TABLET (FP) PO SCH ×2 (14:26→21:22)
[2019-07-26] MEDS: DOXAZOSIN MESYLATE 4 MG TABLET PO SCH (14:26)
[2019-07-26] MEDS: TIOTROPIUM BROMIDE 2.5 MCG (SPIRIVA) RESPIMAT INHALER IH SCH (14:27)
[2019-07-26] MEDS: AZITHROMYCIN 250 MG TABLET PO SCH (14:27)
[2019-07-26] MEDS: CALCITRIOL 0.25 MCG CAPSULE (FP) PO SCH (14:27)
[2019-07-26] MEDS: CALCIUM 250MG/VIT-D 125 UNITS 1 COMBO TABLET PO SCH (14:27)
[2019-07-26] MEDS: NIFEdipine E.R. 90 MG TABLET PO SCH (14:27)
[2019-07-26] MEDS: VITAMIN B COMP W-C 1 EA TABLET (NEPHRO-VITE) PO SCH (14:27)
[2019-07-26] MEDS: TRAZODONE HCL PO SCH (21:22)
[2019-07-26] MEDS: LIDOCAINE PATCH REMOVAL MC SCH (21:23)
[2019-07-27] MEDS: GABAPENTIN 100 MG CAPSULE PO SCH ×2 (06:33→14:17)
[2019-07-27] MEDS: METHADONE HCL 5 MG TABLET PO SCH ×2 (06:33→14:16)
[2019-07-27] MEDS: VANCOMYCIN 250 MG/5 ML ORAL SOLUTION PO SCH ×3 (06:33→17:33)
[2019-07-27] MEDS: INSULIN (LEVEMIR) 100 UNITS/ML UNITS SQ SCH (06:34)
[2019-07-27] MEDS: INSULIN SLIDING SCALE (NOVOLOG) 1 VIAL SQ SCH ×3 (06:34→17:33)
[2019-07-27 08:06] LABS: BASO % 0.9 % (0-2.0); EOS % 3.7 % (0-4.5); HEMATOCRIT 28.9 % (35.4-49); HEMOGLOBIN 9.2 GM/dL (11.7-16.9); LYMPH % 22.5 % (8-40); MCH 26.2 pg (25.7-33.7); MCHC 31.8 g/dl (32.0-35.9); MEAN CELL VOLUME 82.4 fl (80-96); MEAN PLT VOLUME 7.6 fl (7.5-11.1); MONO % 11.4 % (3.8-10.2); NEUT % 61.5 % (42.8-82.8); PLATELET COUNT 418 K/MM3 (134-434); RBC 3.51 M/mm3 (4.00-5.60); RDW 19.5 % (11.9-15.9); WHITE BLOOD COUNT 3.8 K/mm3 (4.0-10.0)
[2019-07-27 08:30] LABS: ALBUMIN 2.3 g/dl (3.4-5.0); BILIRUBIN,TOTAL 0.4 mg/dL (0.2-1); BLOOD UREA NITROGEN 27.1 mg/dL (7-18); CALCIUM 7.2 mg/dL (8.5-10.1); CREATININE 6.8 mg/dL (0.55-1.3); TOT PROT 6.3 g/dl (6.4-8.2)
[2019-07-27] MEDS: CALCIUM ACETATE 667 MG CAPSULE (FP) PO SCH ×3 (08:35→17:33)
[2019-07-27] MEDS ORDERED: PT OWN MED DRAWER 7, Y5N ONE (09:37)
[2019-07-27] MEDS: AZITHROMYCIN 250 MG TABLET PO SCH (10:14)
[2019-07-27] MEDS: CALCIUM 250MG/VIT-D 125 UNITS 1 COMBO TABLET PO SCH (10:14)
[2019-07-27] MEDS: hydrALAZINE HCL 50 MG TABLET (FP) PO SCH (10:15)
[2019-07-27] MEDS: VITAMIN B COMP W-C 1 EA TABLET (NEPHRO-VITE) PO SCH (10:15)
[2019-07-27] MEDS: SODIUM ZIRCONIUM CYCLOSILICATE (LOKELMA) 5 GM PACKET PO SCH (10:15)
[2019-07-27] MEDS: NIFEdipine E.R. 90 MG TABLET PO SCH (10:18)
[2019-07-27] MEDS: CALCITRIOL 0.25 MCG CAPSULE (FP) PO SCH (10:18)
[2019-07-27] MEDS: DOXAZOSIN MESYLATE 4 MG TABLET PO SCH (10:18)
[2019-07-27] MEDS: TORSEMIDE 100 MG TABLET PO SCH (10:18)
[2019-07-27] MEDS: HEPARIN NA (PORCINE) 5,000 UNITS/ML 1ML VIAL SQ SCH (10:19)
[2019-07-27] MEDS: TIOTROPIUM BROMIDE 2.5 MCG (SPIRIVA) RESPIMAT INHALER IH SCH (10:19)
[2019-07-27] MEDS: LIDOCAINE 5% TOPICAL PATCH TP SCH (10:20)
[2019-07-27 14:11] VITALS: TEMP 97.6
[2019-07-27 21:02] VITALS: BP 166/89; PULSE 76
== END 2019-07-27 21:02 | DRG 193 ==
LOC: JER 16:01 → JERBED 20:57 → J4S 07-17 00:27
PROVIDERS: ADMIT Family Medicine; ATTEND Nurse Practitioner Acute Care
PROC: 5A1D70Z Performance of Urinary Filtration, Intermittent, Less than 6 Hours Per Day (ICD-10-PCS; principal; 2019-07-26)
DX: J12.89 Other viral pneumonia (principal); N18.6 End stage renal disease; I13.2 Hypertensive heart and chronic kidney disease with heart failure and with stage 5 chronic kidney disease, or end stage renal disease; I50.32 Chronic diastolic (congestive) heart failure; A04.72 Enterocolitis due to Clostridium difficile, not specified as recurrent; J44.9 Chronic obstructive pulmonary disease, unspecified; E87.5 Hyperkalemia; E11.22 Type 2 diabetes mellitus with diabetic chronic kidney disease; E83.51 Hypocalcemia; B97.29 Other coronavirus as the cause of diseases classified elsewhere; Z99.2 Dependence on renal dialysis; K21.9 Gastro-esophageal reflux disease without esophagitis; E11.40 Type 2 diabetes mellitus with diabetic neuropathy, unspecified; I73.9 Peripheral vascular disease, unspecified; D64.9 Anemia, unspecified
CPT/HCPCS: 36415; 71045-TC-FY; 80048; 80053; 82962; 83735; 84100; 85025; 86704; 86706; 86707; 86708; 86709; 86803; 87040; 87324; 87340; 87449; 87798; 87804; 93005; 93010; 99285-25; J0885; J1644; Q5106; U0002

== ENCOUNTER 2019-11-01 11:06 | Inpatient (IN) | payer OTHER ==
[2019-11-01] MEDS ORDERED: DEXTROSE 50%-WATER 25 GM/50 ML DISP.SYRIN ONE ×2 (11:13→17:19)
[2019-11-01 11:39] LABS: ARTERIAL BLD GAS O2 SATURATION 94.4 mmHg (95-98); ARTERIAL BLOOD GAS BASE EXCESS -1.2 mmol/L (-2-2); ARTERIAL BLOOD GAS PO2 78.5 mmHg (80-100)
[2019-11-01 11:41] LABS: BASO % 0.8 % (0-2.0); EOS % 3.3 % (0-4.5); HEMATOCRIT 28.7 % (35.4-49); HEMOGLOBIN 8.9 GM/dL (11.7-16.9); LYMPH % 9.3 % (8-40); MCH 25.1 pg (25.7-33.7); MCHC 31.2 g/dl (32.0-35.9); MEAN CELL VOLUME 80.3 fl (80-96); MEAN PLT VOLUME 6.6 fl (7.5-11.1); MONO % 6.2 % (3.8-10.2); NEUT % 80.4 % (42.8-82.8); PLATELET COUNT 537 K/MM3 (134-434); RBC 3.57 M/mm3 (4.00-5.60); RDW 22.1 % (11.9-15.9); WHITE BLOOD COUNT 7.5 K/mm3 (4.0-10.0)
[2019-11-01 11:53] LABS: INR 1.16 (0.83-1.09); PROTHROMBIN TIME (PATIENT) 13.7 SEC (9.7-13.0)
[2019-11-01 11:56] LABS: ACTIVATED PTT 40.4 SECONDS (25.2-36.5)
[2019-11-01 12:02] LABS: ALBUMIN 2.8 g/dl (3.4-5.0); BILIRUBIN,TOTAL 0.4 mg/dL (0.2-1); BLOOD UREA NITROGEN 24.2 mg/dL (7-18); CALCIUM 8.8 mg/dL (8.5-10.1); CREATININE 4.3 mg/dL (0.55-1.3); POTASSIUM 3.7 mmol/L (3.5-5.1); TOT PROT 6.9 g/dl (6.4-8.2)
[2019-11-01 12:10] LABS: ANISOCYTOSIS 1+; MACROCYTOSIS 0; PLATELET ESTIMATE INCREASED
--- NOTE | 2019-11-01 12:23 | PDOC ---
History of Present Illness - General Chief Complaint: Blood Pressure Problem Stated Complaint: LOW BLOOD SUGAR Time Seen by Provider: 11/01/19 11:11 History Source: Patient, EMS, [facility] Records - History of Present Illness Initial Comments: 11/01/19 12:13 Hx HTN, HLD, ESRD (T/Th?Sat HD), COPD, CHF p/w hypoglycemia from [facility] after blood sugar found to be 28 and lethargic. lethargic sugar 28 glucagon, o2 EMS dialysis HD T/Th/Sat, via AVF on LUE (limb alert) methadone torsemide dosasyn methylate levemir 6:30 6u, didnt eat breakfast D10 by EMS en route via IO (minimal administered, line not flushing) --- R AC 20g placed amp D50 given, +orange juice D10 changed to AC line --- Repeat Glu - 138 --- Repeat Glu - 96 D5 maintenance fluids ordered Patient endorsed to/admitted under Dr. Bhakta. --- Repeat Glu - 50 Additional D50 amp ordered --- 11/01/19 18:47 Repeat temp - 102 Ofirmev, vanc/zosyn ordered Past History - Medical History Allergies/Adverse Reactions: Allergies Allergy/AdvReac Type Severity Reaction Status Date / Time shellfish derived Allergy Severe "HIVES" Verified 11/01/19 11:59 No Known Drug Allergies Allergy Verified 11/01/19 11:59 Home Medications: Ambulatory Orders Fluticasone Prop 0.05% Nasal [Flonase -] 1 - 2 spray NS DAILY #1 spray.pump 08/23/17 Doxazosin Mesylate 4 mg PO DAILY 05/11/19 Nifedipine ER [Procardia XL -] 90 mg PO DAILY 05/11/19 Albuterol 0.083% Nebulizer Coretta [Ventolin 0.083% Nebulizer Soln -] 1 neb NEB Q6H PRN 30 Days vial 05/23/19 Insulin Detemir [Levemir Flextouch] 6 unit SQ BID 05/28/19 Methadone HCl 2.5 mg PO TID 05/28/19 Tiotropium [place] [Spiriva Respimat] 1 inh .ROUTE BID 05/28/19 traZODone HCL [Desyrel -] 450 mg PO HS 06/22/19 hydrALAZINE HCL [Apresoline -] 50 mg PO BID #0 tablet 07/17/19 Acetaminophen [Tylenol .Regular Strength -] 650 mg PO Q4H PRN tablet 07/27/19 Torsemide [Demadex -] 100 mg PO DAILY tablet 07/27/19 Diphenoxylate 2.5/Atropine.025 [Lomotil -] 1 combo PO DAILY 11/01/19 Ipratropium/Albuterol Sulfate [Iprat-Albut 0.5-3(2.5) mg/3 ml] 3 ml IH PRN 11/01/19 Mag Hydrox/Aluminum Hyd/Simeth [Claudia-Lanta Liquid] 15 ml PO Q8H PRN 11/01/19 Sucroferric Oxyhydroxide [Velphoro] 2 tab PO TID 11/01/19 Anemia: Yes COPD: Yes CHF: No Diabetes: Yes Dialysis: Yes HTN: Yes Thyroid Disease: No Lung CA: Yes (depression) - Surgical History Abdominal Surgery: Yes (HERNIA) Orthopedic Surgery: Yes (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, rt gr toe amputation) - Immunization History Immunization Up to Date: Yes - Psycho-Social/Smoking History Smoking Status: No Smoking History: Smoker current status UNK Have you smoked in the past 12 months: No Number of Cigarettes Smoked Daily: 1 If you are a former smoker, when did you quit?: FEB 2019 Cigars Per Day: 1 Information on smoking cessation initiated: No 'Breaking Loose' booklet given: 09/24/17 - Substance Abuse Hx (Audit-C & DAST Scrn) How often the patient has a drink containing alcohol: Never Score: In Men: 4 or > Positive; In Women: 3 or > Positive: 0 Screen Result (Pos requires Nsg. Audit-10AR): Negative In the last yr the pt used illegal drug/Rx for NonMed reason: No Score: Yes response is considered Positive: 0 Screen Result (Positive result requires Nsg. DAST-10): Negative *Physical Exam - Vital Signs Last Vital Signs Temp Pulse Resp BP Pulse Ox 91.2 F L 82 16 170/97 100 11/01/19 11:31 11/01/19 11:31 11/01/19 11:31 11/01/19 11:31 11/01/19 11:39 ED Treatment Course - LABORATORY CBC & Chemistry Diagram: 11/01/19 11:15 11/01/19 11:15 - ADDITIONAL ORDERS Additional order review: Laboratory Results 11/01/19 11/01/19 11/01/19 11:51 11:15 11:15 PT with INR INR PTT (Actin FS) Anticoagulation Therapy No Result Required. Puncture Site No Result Required. Patient Temperature No Result Required. ABG pH 7.310 L ABG pCO2 52.00 H ABG pO2 78.5 L ABG HCO3 25.6 ABG O2 Sat (Measured) 94.4 L ABG O2 Content No Result Required. ABG Base Excess -1.2 Beau Test No Result Required. Patient On Oxygen No Result Required. O2 Delivery Device No Result Required. Oxygen Flow Rate No Result Required. Vent Mode No Result Required. Vent Rate No Result Required. Mechanical Rate No Result Required. PEEP No Result Required. Pressure Support Vent No Result Required. Sodium Potassium Chloride Carbon Dioxide Anion Gap BUN Creatinine Est GFR (CKD-EPI)AfAm Est GFR (CKD-EPI)NonAf POC Glucometer 138 Random Glucose Lactic Acid 0.6 Calcium Total Bilirubin AST ALT Alkaline Phosphatase Troponin I Total Protein Albumin 11/01/19 11/01/19 11/01/19 11:15 11:15 11:15 PT with INR 13.70 H INR 1.16 H PTT (Actin FS) 40.4 H Anticoagulation Therapy Puncture Site Patient Temperature ABG pH ABG pCO2 ABG pO2 ABG HCO3 ABG O2 Sat (Measured) ABG O2 Content ABG Base Excess Beau Test Patient On Oxygen O2 Delivery Device Oxygen Flow Rate Vent Mode Vent Rate Mechanical Rate PEEP Pressure Support Vent Sodium 136 Potassium 3.7 Chloride 101 Carbon Dioxide 26 Anion Gap 9 BUN 24.2 H Creatinine 4.3 H Est GFR (CKD-EPI)AfAm 15.73 Est GFR (CKD-EPI)NonAf 13.58 POC Glucometer Random Glucose 275 H Lactic Acid Calcium 8.8 Total Bilirubin 0.4 AST 13 L ALT 12 L Alkaline Phosphatase 80 Troponin I 0.02 Total Protein 6.9 Albumin 2.8 L 11/01/19 11:12 PT with INR INR PTT (Actin FS) Anticoagulation Therapy Puncture Site Patient Temperature ABG pH ABG pCO2 ABG pO2 ABG HCO3 ABG O2 Sat (Measured) ABG O2 Content ABG Base Excess Beau Test Patient On Oxygen O2 Delivery Device Oxygen Flow Rate Vent Mode Vent Rate Mechanical Rate PEEP Pressure Support Vent Sodium Potassium Chloride Carbon Dioxide Anion Gap BUN Creatinine Est GFR (CKD-EPI)AfAm Est GFR (CKD-EPI)NonAf POC Glucometer 27 Random Glucose Lactic Acid Calcium Total Bilirubin AST ALT Alkaline Phosphatase Troponin I Total Protein Albumin 11/01/19 11/01/19 11/01/19 11:51 11:15 11:12 RBC 3.57 L MCV 80.3 MCHC 31.2 L RDW 22.1 H MPV 6.6 L D Neutrophils % 80.4 D Lymphocytes % 9.3 D Monocytes % 6.2 Eosinophils % 3.3 Basophils % 0.8 POC Glucometer 138 27 - RADIOLOGY Radiology Studies Ordered: Category Date Time Status CHEST X-RAY PORTABLE* [RAD] Stat Radiology 11/01/19 11:24 Taken Medical Decision Making - Medical Decision Making 11/01/19 18:43 Repeat temp: 102 genevieve Castro/ivan ordered Discharge - Follow up/Referral Referrals: Antonio Bhakta MD [Primary Care Provider] - - Patient Discharge Instructions - Post Discharge Activity
[2019-11-01 13:12] LABS: EPI CELLS 18 /uL (0-25.1); HYALINE CASTS 5 /uL (0-3.1); PH,URINE 8.5 (5.0-8.0); URINE APPEARANCE CLEAR; URINE BACTERIA 13 /uL (0-1359); URINE BILIRUBIN NEGATIVE (NEGATIVE); URINE COLOR YELLOW; URINE GLUCOSE (UA) NEGATIVE (NEGATIVE); URINE KETONE NEGATIVE (NEGATIVE); URINE LEUK ESTERASE TRACE (NEGATIVE); URINE NITRITE NEGATIVE (NEGATIVE); URINE PROTEIN 3+ (NEGATIVE); URINE RBC 6 /uL (0-23.9); URINE UROBILINOGEN 0.2 mg/dL (0.2-1.0); URINE WBC 12 /uL (0-25.8)
--- NOTE | 2019-11-01 13:31 | PDOC ---
Documentation entered by Genie Abrams SCRIBE, acting as scribe for Mara Rodas MD. Mara Rodas MD: This documentation has been prepared by the paigeibeJose Alberto Ana, SCRIBE, under my direction and personally reviewed by me in its entirety. I confirm that the documentation accurately reflects all work, treatment, procedures, and medical decision making performed by me. Attending Attestation - Resident Resident Name: ShawnaMitchell - ED Attending Attestation I have performed the following: I have examined & evaluated the patient, The case was reviewed & discussed with the resident, I agree w/resident's findings & plan, Exceptions are as noted - HPI HPI: 11/01/19 11:25 64 yo M h/o diabetes, ESRD (on HD T//Sat), IDDM, HTN, blt BKA, diastolic HF, MRSA bacteremia osteomyelitis, anemia, who presents to the ED, BIBA from [facility], with hypoglycemia since earlier today. Per EMS, the patient was at a shelter when his blood sugar dropped to 23 which prompted the shelter to call an ambulance. Per EMS, the patient was hypertensive on scene and various medications were given in the field (including glucagon and lidocaine). Patient stated he does not recall anything from earlier today.EMS place [place] , difficult access, transfered to ED. on arrival to ED. sugar was still 20. pt altered. history per nursing facility and EMS Allergies: shellfish, NKDA. 11/01/19 13:17 - Physicial Exam PE: 11/01/19 13:19 awake alert lungs clear with crackles at bases. heart rrr no mrg abd soft nt nd ext wwp. bilat BKA, left upper ext fistula good thrill. nuero pt altered, but respons to pain. - Medical Decision Making 11/01/19 13:19 64 yo esrd, dm here with hypoglycemia. iv access obtained. given amp glucose. was much more awake following. per nursing staff at [facility],pt was given levamere and did not eat much. received his tray but didn't eat much of it. deneis f/c no cp. last dialysis yesterday. does still make urine. plan gave oral tray after glucose. 11/01/19 14:00 pt with recurrent low sugars, will admit for glucose monitoring. initially hypothermic, likely due to hypoglycemia, placed on mendel hugger, recheck improved. 11/01/19 repeat temperature while in ED was 102. treated for possible sepsis, with keiry and ivan, admitted to dr ruiz. Discharge - Discharge Information Problems reviewed: Yes Clinical Impression/Diagnosis: Hypoglycemia Condition: Stable - Follow up/Referral - Patient Discharge Instructions - Post Discharge Activity
[2019-11-01] MEDS ORDERED: DEXTROSE 5%-0.45% SALINE 1,000 ML IV SCH (16:15)
[2019-11-01] MEDS ORDERED: DEXTROSE 50%-WATER - 25 GM/50 ML VIAL IVPUSH ONE (17:19)
[2019-11-01] MEDS ORDERED: VANCOMYCIN HCL 1,500 MG in DEXTROSE 5%-WATER - 500 ML IVPB ONE (18:42)
[2019-11-01] MEDS ORDERED: ACETAMINOPHEN 1000 MG/100 ML VIAL (NON FORMULARY) IVPB ONE (18:42)
[2019-11-01] MEDS ORDERED: PIPERACILLIN/TAZOB 4.5 GM 4.5 GM in DEXTROSE 5%-WATER 100 ML IVPB ONE (18:42)
[2019-11-01] MEDS ORDERED: PIPERACILLIN/TAZOB 4.5 GM 4.5 GM/100 ML BAG IVPB ONE (18:48)
[2019-11-01] MEDS ORDERED: ACETAMINOPHEN INJECTION 100 ML IVPB ONE (18:48)
[2019-11-01] MEDS ORDERED: ACETAMINOPHEN 325 MG TABLET (FP) PO PRN (19:18)
[2019-11-01] MEDS ORDERED: D5-1/2NS+20 MEQ KCL - 20 MEQ/1,000 ML INFUS.BAG IV SCH (19:30)
[2019-11-01] MEDS ORDERED: HEPARIN NA (PORCINE) 5,000 UNITS/ML 1ML VIAL ONE (22:20)
[2019-11-01] MEDS ORDERED: hydrALAZINE HCL 25 MG TABLET (FP) ONE (22:20)
[2019-11-01] MEDS: HEPARIN NA (PORCINE) 5,000 UNITS/ML 1ML VIAL SQ SCH (22:32)
[2019-11-01] MEDS: hydrALAZINE HCL 50 MG TABLET (FP) PO SCH (22:32)
[2019-11-01] MEDS: INSULIN SLIDING SCALE (NOVOLOG) 1 VIAL SQ SCH (22:32)
[2019-11-01] MEDS ORDERED: METHADONE HCL 5 MG TABLET ONE (22:40)
[2019-11-01] MEDS: METHADONE HCL 5 MG TABLET PO SCH (22:43)
[2019-11-02] MEDS ORDERED: PIPERACILLIN/TAZOB 3.375 GM 3.375 GM/50 ML BAG IVPB ONE (02:42)
[2019-11-02] MEDS: PIPERACILLIN/TAZOB 3.375 GM 3.375 GM in DEXTROSE 5%-WATER - 50 ML IVPB SCH ×3 (02:44→19:26)
[2019-11-02] MEDS: INSULIN SLIDING SCALE (NOVOLOG) 1 VIAL SQ SCH ×5 (06:22→21:23)
[2019-11-02] MEDS: METHADONE HCL 5 MG TABLET PO SCH ×3 (06:23→21:23)
[2019-11-02] MEDS ORDERED: PIPERACILLIN/TAZOBACTAM 3.375 GM VIAL IVPB ONE (09:07)
[2019-11-02] MEDS ORDERED: PT OWN MED DRAWER 7, Y5N ONE (09:07)
[2019-11-02] MEDS ORDERED: DEXTROSE 5%-WATER - 50 ML IVPB ONE ×3 (09:07→16:53)
--- NOTE | 2019-11-02 10:16 | EKG ---
Test Reason : Blood Pressure : / mmHG Vent. Rate : 072 BPM Atrial Rate : 072 BPM P-R Int : 258 ms QRS Dur : 110 ms QT Int : 452 ms P-R-T Axes : 079 065 076 degrees QTc Int : 494 ms SINUS RHYTHM WITH 1ST DEGREE A-V BLOCK INCOMPLETE RIGHT BUNDLE BRANCH BLOCK PROLONGED QT ABNORMAL ECG WHEN COMPARED WITH ECG OF 16-JUL-2019 17:04, CRITERIA FOR ANTEROSEPTAL INFARCT ARE NO LONGER PRESENT QT HAS LENGTHENED Confirmed by Tiffany Matamoros ([id number]) on 11/02/2019 10:16:05 AM Referred By: Confirmed By:Tiffany Matamoros
--- NOTE | 2019-11-02 10:50 | HP ---
Admitting History and Physical - Primary Care Physician PCP: Antonio Bhakta - Admission Chief Complaint: Hypoglycemia. Pneumonia History of Present Illness: 64 yo M h/o diabetes, ESRD (on HD //Sat), IDDM, HTN, blt BKA, diastolic HF, MRSA bacteremia osteomyelitis, anemia, who presents to the ED, [facility] from [facility], with hypoglycemia since earlier today. Per EMS, the patient was at a assisted when his blood sugar dropped to 23 which prompted the assisted to call an ambulance. Per EMS, the patient was hypertensive on scene and various medications were given in the field (including glucagon and lidocaine). Patient stated he does not recall anything from earlier today.EMS place IO , difficult access, transfered to ED. on arrival to ED. sugar was still 20. pt altered. 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 No: O2 Dependent, Previously Intubated, Pulmonary Embolus, Pulmonary Fibrosis, Sleep Apnea Gastrointestinal: Yes: GERD Renal/: Yes: Renal Failure, Renal Inusuff, Hemodialysis Heme/Onc: Yes: Anemia Infectious Disease: Yes: Other (osteomyelitis) Psych: Yes: Depression Musculoskeletal: Yes: Other (chronic pain) Rheumatology: Yes: Other (history of osteomyelitis) Endocrine: Yes: Diabetes Mellitus - Past Surgical History Past Surgical History: Yes: Amputation (transmetatarsal of Left foot, b/l BKA uses prosthesis) - Advance Directives Advance Directives: Yes: Health Care Proxy - Smoking History Smoking history: Smoker current status UNK Have you smoked in the past 12 months: No Aproximately how many cigarettes per day: 1 If you are a former smoker, when did you quit?: FEB 2019 - Alcohol/Substance Use Hx Alcohol Use: No Number of Drinks Daily: 2 (weekends) History of Substance Use: reports: None - Social History ADL: Support Services History of Recent Travel: No Home Medications - Allergies Allergies/Adverse Reactions: Allergies Allergy/AdvReac Type Severity Reaction Status Date / Time shellfish derived Allergy Severe "HIVES" Verified 11/01/19 11:59 No Known Drug Allergies Allergy Verified 11/01/19 11:59 - Home Medications Home Medications: Ambulatory Orders Fluticasone Prop 0.05% Nasal [Flonase -] 1 - 2 spray NS DAILY #1 spray.pump 08/23/17 Doxazosin Mesylate 4 mg PO DAILY 05/11/19 Nifedipine ER [Procardia XL -] 90 mg PO DAILY 05/11/19 Albuterol 0.083% Nebulizer Coretta [Ventolin 0.083% Nebulizer Soln -] 1 neb NEB Q6H PRN 30 Days vial 05/23/19 Insulin Detemir [Levemir Flextouch] 6 unit SQ BID 05/28/19 Methadone HCl 2.5 mg PO TID 05/28/19 Tiotropium [place] [Spiriva Respimat] 1 inh .ROUTE BID 05/28/19 traZODone HCL [Desyrel -] 450 mg PO HS 06/22/19 hydrALAZINE HCL [Apresoline -] 50 mg PO BID #0 tablet 07/17/19 Acetaminophen [Tylenol .Regular Strength -] 650 mg PO Q4H PRN tablet 07/27/19 Torsemide [Demadex -] 100 mg PO DAILY tablet 07/27/19 Diphenoxylate 2.5/Atropine.025 [Lomotil -] 1 combo PO DAILY 11/01/19 Ipratropium/Albuterol Sulfate [Iprat-Albut 0.5-3(2.5) mg/3 ml] 3 ml IH PRN 11/01/19 Mag Hydrox/Aluminum Hyd/Simeth [Claudia-Lanta Liquid] 15 ml PO Q8H PRN 11/01/19 Sucroferric Oxyhydroxide [Velphoro] 2 tab PO TID 11/01/19 Review of Systems - Review of Systems Constitutional: reports: No Symptoms Eyes: reports: No Symptoms HENT: reports: No Symptoms Neck: reports: No Symptoms Cardiovascular: reports: No Symptoms Respiratory: reports: No Symptoms Gastrointestinal: reports: No Symptoms Genitourinary: reports: No Symptoms Breasts: reports: No Symptoms Reported Musculoskeletal: reports: No Symptoms Integumentary: reports: No Symptoms Neurological: reports: No Symptoms Endocrine: reports: No Symptoms Hematology/Lymphatic: reports: No Symptoms Psychiatric: reports: No Symptoms Physical Examination Vital Signs: Vital Signs Temperature 98.6 F 11/02/19 10:00 Pulse Rate 79 11/02/19 10:00 Respiratory Rate 20 20 10:00 Blood Pressure 134/67 11/02/19 10:00 O2 Sat by Pulse Oximetry (%) 100 11/02/19 09:00 Constitutional: Yes: Well Nourished, No Distress, Calm Cardiovascular: Yes: Regular Rate and Rhythm Respiratory: Yes: Regular, Diminished (BLL) Gastrointestinal: Yes: Normal Bowel Sounds, Soft Renal/: Yes: WNL Musculoskeletal: Yes: Muscle Weakness Extremities: Yes: Amputation (BL BKA) Edema: No Peripheral Pulses WNL: Yes Neurological: Yes: Alert, Oriented Psychiatric: Yes: Alert, Oriented Labs: CBC, BMP 11/01/19 11:15 11/01/19 11:15 Problem List - Problems (1) Hypoglycemia Assessment/Plan: -D/C IVF -BGM's more stable -D/C ISS -Renal diet -Last A1c at 6.1 Problems reviewed: Yes Code(s): E16.2 - HYPOGLYCEMIA, UNSPECIFIED (2) Pneumonia Assessment/Plan: - Problems reviewed: Yes Code(s): J18.9 - PNEUMONIA, UNSPECIFIED ORGANISM (3) Chronic anemia Assessment/Plan: -2/2 to CKD -monitor trend Problems reviewed: Yes Code(s): D64.9 - ANEMIA, UNSPECIFIED (4) Diabetes mellitus Assessment/Plan: -Last A1c at 6.1 Problems reviewed: Yes Code(s): E11.9 - TYPE 2 DIABETES MELLITUS WITHOUT COMPLICATIONS Qualifiers: Diabetes mellitus type: type 2 Diabetes mellitus intermediate designer insulin use: without residential use Diabetes mellitus complication status: without complication Qualified Code(s): E11.9 - Type 2 diabetes mellitus without complications (5) ESRD (end stage renal disease) on dialysis Assessment/Plan: -Nephrology consult -Dialysis TTS Problems reviewed: Yes Code(s): N18.6 - END STAGE RENAL DISEASE; Z99.2 - DEPENDENCE ON RENAL DIALYSIS (6) Bacteremia Assessment/Plan: -BC preliminary + cocci in cluster -ID consult appreciated -IV abx -afebrile now, as per pt, earlier temps were checked when he still had bear hugg er on. Problems reviewed: Yes Code(s): R78.81 - BACTEREMIA Assessment/Plan See problem list
--- NOTE | 2019-11-02 10:58 | PN ---
Progress Note (short form) - Note Progress Note: 64 yo man with esrd/hd, bulateral BKA, DM admitted with hypoglycemia and hypothermia he was lethargic on admission after warming blanket he had a fever of 102 currently awake and alert wants to leave no complaints whatsoever other then he wants double servings on the food denies cough, sob, but is wearing NRB mask- apparently uses it prn at the [facility] fever hypoglycemia with hypothermia esrd/hd ?source avf looks alright cxray with increased interstitial markings reports covd positive in June reports retested this past weekend and negative at the [facility] continue zosyn received vanco in ED blood cultures pending will f/u Problem List - Problems (1) Fever Code(s): R50.9 - FEVER, UNSPECIFIED (2) Hypoglycemia Code(s): E16.2 - HYPOGLYCEMIA, UNSPECIFIED (3) ESRD (end stage renal disease) on dialysis Code(s): N18.6 - END STAGE RENAL DISEASE; Z99.2 - DEPENDENCE ON RENAL DIALYSIS
[2019-11-02] MEDS: PIPERACILLIN/TAZOB 2.25 GM 2.25 GM in DEXTROSE 5%-WATER - 50 ML IVPB SCH ×2 (11:47→17:06)
[2019-11-02] MEDS: HEPARIN NA (PORCINE) 5,000 UNITS/ML 1ML VIAL SQ SCH ×2 (11:47→21:23)
[2019-11-02] MEDS: hydrALAZINE HCL 50 MG TABLET (FP) PO SCH ×2 (11:47→21:23)
[2019-11-02] MEDS: NIFEdipine E.R. 90 MG TABLET PO SCH (11:47)
--- NOTE | 2019-11-02 12:48 | CON.PULM ---
Consult Consult Specialty:: PU:M/CCM Referred by:: GABRIELE Reason for Consultation:: Abnormal CXR - History of Present Illness Chief Complaint: AMS History of Present Illness: 64 M, well known to our service. HTN, HLD, ESRD on (//Sat), COPD, CHF, PVD S/P multiple amputations, and multiple admissions. Admitted via the ER due to fever, AMS, and hypoglycemia. Blood sugar was apparently 28. Reports having a recent Negative CPVID19 testing. Denies cough, sputum, SOB, etc. 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 No: O2 Dependent, Previously Intubated, Pulmonary Embolus, Pulmonary Fibrosis, Sleep Apnea Gastrointestinal: Yes: GERD Renal/: Yes: Renal Failure, Renal Inusuff, Hemodialysis Infectious Disease: Yes: Other (osteomyelitis) Psych: Yes: Depression Musculoskeletal: Yes: Other (chronic pain) Rheumatology: Yes: Other (history of osteomyelitis) Endocrine: Yes: Diabetes Mellitus - Past Surgical History Past Surgical History: Yes: Amputation (transmetatarsal of Left foot, b/l BKA uses prosthesis) - Alcohol/Substance Use Hx Alcohol Use: No Number of Drinks Daily: 2 (weekends) History of Substance Use: reports: None - Smoking History Smoking history: Smoker current status UNK Have you smoked in the past 12 months: No Aproximately how many cigarettes per day: 1 If you are a former smoker, when did you quit?: FEB 2019 - Social History Usual Living Arrangement: Alone ADL: Support Services History of Recent Travel: No Home Medications - Allergies Allergies/Adverse Reactions: Allergies Allergy/AdvReac Type Severity Reaction Status Date / Time shellfish derived Allergy Severe "HIVES" Verified 11/01/19 11:59 No Known Drug Allergies Allergy Verified 11/01/19 11:59 - Home Medications Home Medications: Ambulatory Orders Fluticasone Prop 0.05% Nasal [Flonase -] 1 - 2 spray NS DAILY #1 spray.pump 08/23/17 Doxazosin Mesylate 4 mg PO DAILY 05/11/19 Nifedipine ER [Procardia XL -] 90 mg PO DAILY 05/11/19 Albuterol 0.083% Nebulizer Coretta [Ventolin 0.083% Nebulizer Soln -] 1 neb NEB Q6H PRN 30 Days vial 05/23/19 Insulin Detemir [Levemir Flextouch] 6 unit SQ BID 05/28/19 Methadone HCl 2.5 mg PO TID 05/28/19 Tiotropium [place] [Spiriva Respimat] 1 inh .ROUTE BID 05/28/19 traZODone HCL [Desyrel -] 450 mg PO HS 06/22/19 hydrALAZINE HCL [Apresoline -] 50 mg PO BID #0 tablet 07/17/19 Acetaminophen [Tylenol .Regular Strength -] 650 mg PO Q4H PRN tablet 07/27/19 Torsemide [Demadex -] 100 mg PO DAILY tablet 07/27/19 Diphenoxylate 2.5/Atropine.025 [Lomotil -] 1 combo PO DAILY 11/01/19 Ipratropium/Albuterol Sulfate [Iprat-Albut 0.5-3(2.5) mg/3 ml] 3 ml IH PRN 11/01/19 Mag Hydrox/Aluminum Hyd/Simeth [Claudia-Lanta Liquid] 15 ml PO Q8H PRN 11/01/19 Sucroferric Oxyhydroxide [Velphoro] 2 tab PO TID 11/01/19 Review of Systems - Review of Systems Constitutional: reports: Lethargy, Malaise. denies: Chills, Fever, Night Sweats Eyes: reports: No Symptoms HENT: reports: No Symptoms Neck: reports: No Symptoms Cardiovascular: denies: Chest Pain, Edema, Palpitations, Shortness of Breath Respiratory: denies: Cough, Hemoptysis, Orthopnea, PND, Snoring, SOB, SOB on Exertion, Wheezing Gastrointestinal: reports: No Symptoms Genitourinary: reports: No Symptoms Breasts: reports: No Symptoms Reported Musculoskeletal: reports: Back Pain Integumentary: reports: No Symptoms Neurological: reports: Change in LOC Endocrine: reports: No Symptoms Hematology/Lymphatic: reports: No Symptoms Psychiatric: reports: No Symptoms Physical Exam Vital Sings: Vital Signs Temperature 98.6 F 11/02/19 10:00 Pulse Rate 79 11/02/19 10:00 Respiratory Rate 20 11/02/19 10:00 Blood Pressure 134/67 11/02/19 10:00 O2 Sat by Pulse Oximetry (%) 100 11/02/19 09:00 Constitutional: Yes: No Distress Eyes: Yes: Conjunctiva Clear, EOM Intact HENT: Yes: Atraumatic, Normocephalic, Rhinnorhea Neck: Yes: Supple Cardiovascular: Yes: Regular Rate and Rhythm Respiratory: Yes: Diminished, Rales. No: Accessory Muscle Use, Cough, Rhonchi, SOB, SOB on Exertion, Stridor, Tachypnea, Wheezes Gastrointestinal: Yes: WNL, Normal Bowel Sounds, Soft Extremities: Yes: Amputation Integumentary: Yes: Venous Stasis Changes Neurological: Yes: Alert, Oriented Psychiatric: Yes: WNL, Alert, Oriented Labs: CBC, BMP 11/01/19 11:15 11/01/19 11:15 ABG Results ABG pH 7.310 (7.350-7.450) L 11/01/19 11:15 ABG HCO3 25.6 mmol/L (22-27) 11/01/19 11:15 ABG O2 Sat (Measured) 94.4 mmHg (95-98) L 11/01/19 11:15 ABG O2 Content No Result Required. 11/01/19 11:15 ABG Base Excess -1.2 mmol/L (-2-2) 11/01/19 11:15 Imaging - Results Chest X-ray: Report Reviewed, Image Reviewed Problem List - Problems (1) Hypoglycemia Code(s): E16.2 - HYPOGLYCEMIA, UNSPECIFIED (2) Chronic anemia Code(s): D64.9 - ANEMIA, UNSPECIFIED (3) Heart failure Code(s): I50.9 - HEART FAILURE, UNSPECIFIED (4) Low grade fever Code(s): R50.9 - FEVER, UNSPECIFIED (5) Type 2 diabetes mellitus with diabetic chronic kidney disease Code(s): E11.22 - TYPE 2 DIABETES MELLITUS W DIABETIC CHRONIC KIDNEY DISEASE Qualifiers: Diabetes mellitus skilled nursing insulin use: with vermin exterminator use Chronic kidney disease stage: stage 4 (severe) Qualified Code(s): E11.22 - Type 2 diabetes me llitus with diabetic chronic kidney disease; N18.4 - Chronic kidney disease, stage 4 (severe); Z79.4 - extermination supervisor (current) use of insulin (6) 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 Code(s): E11.311 - TYPE 2 DIABETES W UNSP DIABETIC RETINOPATHY W MACULAR EDEMA (7) Acute on chronic diastolic heart failure Code(s): I50.33 - ACUTE ON CHRONIC DIASTOLIC (CONGESTIVE) HEART FAILURE (8) Anemia Code(s): D64.9 - ANEMIA, UNSPECIFIED Qualifiers: (9) Below-knee amputation Code(s): S88.119A - COMPLETE TRAUM AMP AT LEV BETW KN & ANKL, UNSP LOW LEG, INIT (10) COPD with emphysema Code(s): J43.9 - EMPHYSEMA, UNSPECIFIED (11) Chronic pain Code(s): G89.29 - OTHER CHRONIC PAIN (12) Chronic renal insufficiency, stage IV (severe) Code(s): N18.4 - CHRONIC KIDNEY DISEASE, STAGE 4 (SEVERE) (13) Diabetes mellitus Code(s): E11.9 - TYPE 2 DIABETES MELLITUS WITHOUT COMPLICATIONS Qualifiers: Diabetes mellitus type: type 2 Diabetes mellitus skilled nursing insulin use: w ithout vermin exterminator use Diabetes mellitus complication status: without compl ication Qualified Code(s): E11.9 - Type 2 diabetes mellitus without compl ications (14) Diabetic neuropathy Code(s): E11.40 - TYPE 2 DIABETES MELLITUS WITH DIABETIC NEUROPATHY, UNSP Qualifiers: Diabetes mellitus type: type 2 Diabetes mellitus complication detail: diabetic polyneuropathy Qualified Code(s): E11.42 - Type 2 diabetes mellitus with diabetic polyneuropathy (15) ESRD (end stage renal disease) on dialysis Code(s): N18.6 - END STAGE RENAL DISEASE; Z99.2 - DEPENDENCE ON RENAL DIALYSIS (16) GERD (gastroesophageal reflux disease) Code(s): K21.9 - GASTRO-ESOPHAGEAL REFLUX DISEASE WITHOUT ESOPHAGITIS (17) HTN (hypertension) Code(s): I10 - ESSENTIAL (PRIMARY) HYPERTENSION Qualifiers: (18) Neuropathy Code(s): G62.9 - POLYNEUROPATHY, UNSPECIFIED (19) Osteoarthritis Code(s): M19.90 - UNSPECIFIED OSTEOARTHRITIS, UNSPECIFIED SITE Qualifiers: Laterality: bilateral (20) PTSD (post-traumatic stress disorder) Code(s): F43.10 - POST-TRAUMATIC STRESS DISORDER, UNSPECIFIED (21) Peripheral vascular disease due to secondary diabetes Code(s): E13.51 - OTH DIABETES W DIABETIC PERIPHERAL ANGIOPATHY W/O GANGRENE (22) S/P amputation Code(s): Z89.9 - ACQUIRED ABSENCE OF LIMB, UNSPECIFIED Assessment/Plan IMP: R/O COVID19 infection Low clinical suspicion for PNA PLAN: Noted ID evaluation was called Supplemental O2 as needed Monitor off systemic steroids No smoking Follow COVID19 serology BD TX PRN HD for volume removal Patient reports that he will be signing AMA today. Will follow if remains admitted. Thank you Dr Butt
[2019-11-02 12:52] VITALS: BMI 27.1
--- NOTE | 2019-11-02 12:52 | CON.NEP ---
Consult Consult Specialty:: Nephrology Referred by:: Medicine Reason for Consultation:: ESRD on HD - History of Present Illness Chief Complaint: Hypoglyceima History of Present Illness: This is a 64 year old male with history of ESRD on HD (TTS), hypertension, PVD s/p BKA, diastolic HF, IDDM, CKD related anemia, prior COVID infection who presented with hypoglycemia and noted to have hypothermia. Pt seen and examined at the bedside. He offers no acute complaints. Denies any sob, cp, fever, chills, abd pain, flank pain, dysuria. No wounds as per pt. No leg swelling. 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 No: O2 Dependent, Previously Intubated, Pulmonary Embolus, Pulmonary Fibrosis, Sleep Apnea Gastrointestinal: Yes: GERD Renal/: Yes: Renal Failure, Renal Inusuff, Hemodialysis Infectious Disease: Yes: Other (osteomyelitis) Psych: Yes: Depression Musculoskeletal: Yes: Other (chronic pain) Rheumatology: Yes: Other (history of osteomyelitis) Endocrine: Yes: Diabetes Mellitus - Past Surgical History Past Surgical History: Yes: Amputation (transmetatarsal of Left foot, b/l BKA uses prosthesis) - Alcohol/Substance Use Hx Alcohol Use: No Number of Drinks Daily: 2 (weekends) History of Substance Use: reports: None - Smoking History Smoking history: Smoker current status UNK Have you smoked in the past 12 months: No Aproximately how many cigarettes per day: 1 If you are a former smoker, when did you quit?: FEB 2019 - Social History Usual Living Arrangement: Alone ADL: Support Services History of Recent Travel: No Home Medications - Allergies Allergies/Adverse Reactions: Allergies Allergy/AdvReac Type Severity Reaction Status Date / Time shellfish derived Allergy Severe "HIVES" Verified 11/01/19 11:59 No Known Drug Allergies Allergy Verified 11/01/19 11:59 - Home Medications Home Medications: Ambulatory Orders Fluticasone Prop 0.05% Nasal [Flonase -] 1 - 2 spray NS DAILY #1 spray.pump 08/23/17 Doxazosin Mesylate 4 mg PO DAILY 05/11/19 Nifedipine ER [Procardia XL -] 90 mg PO DAILY 05/11/19 Albuterol 0.083% Nebulizer Coretta [Ventolin 0.083% Nebulizer Soln -] 1 neb NEB Q6H PRN 30 Days vial 05/23/19 Insulin Detemir [Levemir Flextouch] 6 unit SQ BID 05/28/19 Methadone HCl 2.5 mg PO TID 05/28/19 Tiotropium [place] [Spiriva Respimat] 1 inh .ROUTE BID 05/28/19 traZODone HCL [Desyrel -] 450 mg PO HS 06/22/19 hydrALAZINE HCL [Apresoline -] 50 mg PO BID #0 tablet 07/17/19 Acetaminophen [Tylenol .Regular Strength -] 650 mg PO Q4H PRN tablet 07/27/19 Torsemide [Demadex -] 100 mg PO DAILY tablet 07/27/19 Diphenoxylate 2.5/Atropine.025 [Lomotil -] 1 combo PO DAILY 11/01/19 Ipratropium/Albuterol Sulfate [Iprat-Albut 0.5-3(2.5) mg/3 ml] 3 ml IH PRN 11/01/19 Mag Hydrox/Aluminum Hyd/Simeth [Claudia-Lanta Liquid] 15 ml PO Q8H PRN 11/01/19 Sucroferric Oxyhydroxide [Velphoro] 2 tab PO TID 11/01/19 Family Medical History Family History: Unremarkable Review of Systems - Review of Systems Constitutional: reports: No Symptoms Eyes: reports: No Symptoms HENT: reports: No Symptoms Neck: reports: No Symptoms Cardiovascular: reports: No Symptoms Respiratory: reports: No Symptoms Gastrointestinal: reports: No Symptoms Genitourinary: reports: No Symptoms Musculoskeletal: reports: No Symptoms Integumentary: reports: No Symptoms Neurological: reports: No Symptoms Endocrine: reports: No Symptoms Hematology/Lymphatic: reports: No Symptoms Nephrology Consult - Height Height: 5 ft 7 in - Weight Weight: 78.744 kg - BMI Body Mass Index (BMI): 27.1 - Lab Results CBC,BMP: CBC, BMP 11/01/19 11:15 11/01/19 11:15 Anion Gap: Anion Gap Anion Gap 9 MMOL/L (8-16) 11/01/19 11:15 - Imaging Chest X-ray: Report Reviewed, Image Reviewed - Physical Examination Vital Signs: Vital Signs Temperature 98.6 F 11/02/19 10:00 Pulse Rate 79 11/02/19 10:00 Respiratory Rate 20 11/02/19 10:00 Blood Pressure 134/67 11/02/19 10:00 O2 Sat by Pulse Oximetry (%) 100 11/02/19 09:00 Constitutional: Yes: No Distress, Calm Neck: Yes: Supple Cardiovascular: Yes: Regular Rate and Rhythm Respiratory: Yes: Regular, Diminished. No: Rales, Rhonchi Gastrointestinal: Yes: Soft Renal/: No: Bladder Distention, CVA Tenderness - Left, CVA Tenderness - Right Extremities: Yes: Amputation Edema: No Neurological: Yes: Alert, Oriented Assessment/Plan 64 year old male with history of ESRD on HD (TTS), hypertension, PVD s/p BKA, diastolic HF, IDDM, CKD related anemia, prior COVID infection who presented with hypoglycemia and noted to have hypothermia. 1. Hypoglycemia 2. Hypothermia/Fever 3. Bilateral infilrates on CXR 4. ESRD on HD 5. Chronic anemia f/u blood cultures, no growth to date ID consulted, will follow up recs COVID PCR pending Hd planned for tomorrow
[2019-11-02] MEDS ORDERED: PIPERACILLIN/TAZOBACTAM 2.25 GM VIAL IVPB ONE ×2 (14:23→16:53)
[2019-11-02] MEDS ORDERED: INSULIN (NOVOLOG) ASPART 100 UNITS/ML 10ML VIAL ONE ×2 (17:17→20:50)
[2019-11-02 17:23] LABS: BASO % 0.6 % (0-2.0); EOS % 3.2 % (0-4.5); HEMATOCRIT 27.5 % (35.4-49); HEMOGLOBIN 8.6 GM/dL (11.7-16.9); LYMPH % 6.9 % (8-40); MCHC 31.2 g/dl (32.0-35.9); MEAN CELL VOLUME 80.2 fl (80-96); MONO % 9.2 % (3.8-10.2); NEUT % 80.1 % (42.8-82.8); PLATELET COUNT 530 K/MM3 (134-434); RBC 3.43 M/mm3 (4.00-5.60); RDW 22.2 % (11.9-15.9); WHITE BLOOD COUNT 10.1 K/mm3 (4.0-10.0)
[2019-11-02 17:49] LABS: ALBUMIN 2.6 g/dl (3.4-5.0); BILIRUBIN,TOTAL 0.8 mg/dL (0.2-1); BLOOD UREA NITROGEN 37.2 mg/dL (7-18); CALCIUM 8.6 mg/dL (8.5-10.1); CREATININE 5.9 mg/dL (0.55-1.3); POTASSIUM 4.7 mmol/L (3.5-5.1); TOT PROT 6.3 g/dl (6.4-8.2)
[2019-11-02] MEDS ORDERED: INSULIN (LEVEMIR) 100 UNITS/ML UNITS SQ ONE (20:54)
--- NOTE | 2019-11-02 23:12 | CONS ---
DATE OF CONSULTATION: DATE OF DICTATION: 11/02/2019 INFECTIOUS DISEASE CONSULTATION HISTORY OF PRESENT ILLNESS: This is a 64-year-old man who presented to the emergency room on October 31 from the assisted with hyperglycemia. She was found to have a blood sugar of 23, at which time the assisted called an ambulance. He was originally hypertensive. He was given multiple medications in the field. He on arrival in the ER, his sugar was still 20. He was noted to be hypothermic. He was placed on a warming blanket. He had cultures drawn. He was given vancomycin and Zosyn. I am asked to see him for further evaluation. After being placed in the warming blanket, he was noted to have a fever of 102. He had blood cultures drawn. This is now the next morning. He is currently awake and alert, reports he feels fine, and wants to return to the assisted. PAST MEDICAL HISTORY: End-stage renal disease on dialysis [id number]. He has a history of diabetes, hypertension, bilateral BKA, heart failure, prior MRSA bacteremia with osteomyelitis. He has a history of anemia. He has got peripheral neuropathy, COPD. He has had pneumonia in the past. Most recently in June he had COVID. He reports he had a repeat COVID test this past weekend at the assisted that was negative. He has a history of depression and anemia. SURGICAL HISTORY: Notable for bilateral BKA. He also has an AV fistula in his left arm that he reports is recent. SOCIAL HISTORY: Notable for recent smoker, quit in February 2019. No history of substance use. Former alcohol drinker, just on weekends. He is residing at the assisted. ALLERGIES: He is allergic to SHELLFISH. MEDICATION: Medications at the assisted include Flonase, doxazosin, nifedipine, insulin, methadone, Spiriva, trazodone, Apresoline, furosemide, Lomotil, ipratropium, albuterol. His director blood bank is Dr. Aniyah Chaudhry. REVIEW OF SYSTEMS: He currently denies fevers, chills, nausea, vomiting, diarrhea, dysuria. He reports he is walking with prosthetic devices at the assisted. PHYSICAL EXAMINATION: General: He is awake and alert. He is requesting double portions. Vital Signs: Temperature 98, pulse 81, blood pressure 113/71, respiratory rate 20. He is wearing a nonrebreather, though he denies being short of breath and says he uses it p.r.n. in the assisted. HEENT: Normocephalic. Eyes are anicteric. Neck: Supple. Lungs: Clear to auscultation. Diminished breath sounds at the bases. Heart: Regular rate and rhythm. AV fistula in the left arm has a good thrill. There is no erythema, induration. Abdomen: Soft, nontender. Extremities: Bilateral BKA sites are well healed. LABORATORY: White count is 10.1, hemoglobin 8.6, platelets are 530. His BUN and creatinine are 37 and 5.9 with a hemoglobin A1c of 6.5. LFTs are normal. Urinalysis has trace leukocytes with 12 white cells. COVID serology is pending, though he reports negative at the assisted, and cultures are pending. He has a chest x-ray notable for increased interstitial markings. IMPRESSION: In summary, this is a 64-year-old man with end-stage renal disease, bilateral below-knee amputation, diabetes, admitted with hypoglycemia and hypothermia, lethargic on admission, fever after warming blanket, currently awake and alert. Source of fever is not clear at this time. His arteriovenous fistula looks unremarkable. Recent COVID positive in June. I would agree with [place] cultures, and vancomycin and Zosyn, with vancomycin by levels until cultures are back. I have ordered a vancomycin level by the morning and Zosyn to be dosed for dialysis, for end-stage renal disease. Case was discussed with the admitting doctor. KEITH ANDRES M.D. [id number]
[2019-11-03] MEDS ORDERED: DEXTROSE 5%-WATER - 50 ML IVPB ONE ×2 (00:09→08:35)
[2019-11-03] MEDS ORDERED: PIPERACILLIN/TAZOBACTAM 2.25 GM VIAL IVPB ONE ×2 (00:09→08:34)
[2019-11-03] MEDS: PIPERACILLIN/TAZOB 2.25 GM 2.25 GM in DEXTROSE 5%-WATER - 50 ML IVPB SCH ×2 (01:13→09:29)
[2019-11-03] MEDS: METHADONE HCL 5 MG TABLET PO SCH ×3 (06:00→22:07)
[2019-11-03] MEDS: INSULIN SLIDING SCALE (NOVOLOG) 1 VIAL SQ SCH ×3 (06:11→22:11)
[2019-11-03] MEDS: HEPARIN NA (PORCINE) 5,000 UNITS/ML 1ML VIAL SQ SCH ×2 (09:28→22:10)
[2019-11-03] MEDS: hydrALAZINE HCL 50 MG TABLET (FP) PO SCH ×2 (09:28→22:07)
[2019-11-03] MEDS: NIFEdipine E.R. 90 MG TABLET PO SCH (09:28)
--- NOTE | 2019-11-03 10:32 | PN ---
Progress Note, Physician Chief Complaint: Bacteremia ESRD Diabetes Mellitus type II Hypoglycemia History of Present Illness: NAD c/o being hot Denies any pain Wants to go home - Current Medication List Current Medications: Active Medications Acetaminophen (Tylenol -) 650 mg PO Q4H PRN PRN Reason: FEVER Epoetin Joe (Procrit -) 20,000 unit IVPUSH ONCE ONE Stop: 11/03/19 08:01 Heparin Sodium (Porcine) (Heparin -) 5,000 unit SQ BID [facility] Last Admin: 11/03/19 09:28 Dose: 5,000 unit Documented by: Hydralazine HCl (Apresoline -) 50 mg PO BID [facility] Last Admin: 11/03/19 09:28 Dose: 50 mg Documented by: Piperacillin Sod/Tazobactam (Sod 2.25 gm/ Dextrose) 50 mls @ 100 mls/hr IVPB Q8H-IV [facility]; Protocol Last Admin: 11/03/19 09:29 Dose: 100 mls/hr Documented by: Sodium Chloride (Normal Saline -) 250 mls @ 3,000 mls/hr IV PRN PRN PRN Reason: Hypotension during Dialysis Stop: 11/03/19 18:23 Insulin Aspart (Novolog Vial Sliding Scale -) 1 vial SQ ACHS [facility]; Protocol Last Admin: 11/03/19 06:11 Dose: Not Given Documented by: Methadone HCl (Dolophine -) 2.5 mg PO TID [facility] Last Admin: 11/03/19 06:00 Dose: 2.5 mg Documented by: Nifedipine (Procardia Xl -) 90 mg PO DAILY [facility] Last Admin: 11/03/19 09:28 Dose: 90 mg Documented by: - Objective Vital Signs: Vital Signs Temperature 98.2 F 11/03/19 09:57 Pulse Rate 73 11/03/19 09:57 Respiratory Rate 20 11/03/19 09:57 Blood Pressure 125/68 11/03/19 09:57 O2 Sat by Pulse Oximetry (%) 100 11/03/19 08:41 Constitutional: Yes: Well Nourished, No Distress, Calm Cardiovascular: Yes: Regular Rate and Rhythm Respiratory: Yes: Regular, CTA Bilaterally Gastrointestinal: Yes: Normal Bowel Sounds, Soft Genitourinary: Yes: WNL Musculoskeletal: Yes: WNL Extremities: Yes: Amputation (BL BKA, wears BL prosthetics) Edema: No Peripheral Pulses WNL: Yes Neurological: Yes: Alert, Oriented Psychiatric: Yes: Alert, Oriented Labs: CBC, BMP 11/02/19 15:10 11/02/19 15:10 INR, PTT INR 1.16 (0.83-1.09) H 11/01/19 11:15 Problem List - Problems (1) Hypoglycemia Assessment/Plan: -D/C IVF -BGM's more stable -D/C ISS -D/C levemir, was getting 6 U BID at [place] -Renal diet -A1c at 6.5 -Start Januvia 25 mg po daily to avoid any future hypoglycemic events Problems reviewed: Yes Code(s): E16.2 - HYPOGLYCEMIA, UNSPECIFIED (2) Pneumonia Assessment/Plan: -Seen by ID and pulmonary -O2 as needed -Likely old scarring from previous covid Problems reviewed: Yes Code(s): J18.9 - PNEUMONIA, UNSPECIFIED ORGANISM (3) Chronic anemia Assessment/Plan: -2/2 to CKD -monitor trend Problems reviewed: Yes Code(s): D64.9 - ANEMIA, UNSPECIFIED (4) Diabetes mellitus Assessment/Plan: -Last A1c at 6.1 Problems reviewed: Yes Code(s): E11.9 - TYPE 2 DIABETES MELLITUS WITHOUT COMPLICATIONS Qualifiers: Diabetes mellitus type: type 2 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 exterminator helper termite insulin use: without custodial use Diabetes mellitus complication status: without complication Qualified Code(s): E11.9 - Type 2 diabetes mellitus without complications (5) ESRD (end stage renal disease) on dialysis Assessment/Plan: -Nephrology consult -Dialysis TTS Problems reviewed: Yes Code(s): N18.6 - END STAGE RENAL DISEASE; Z99.2 - DEPENDENCE ON RENAL DIALYSIS (6) Bacteremia Assessment/Plan: -BC preliminary : Microbiology 11/02/19 16:50 Legionella Antigen - Final Urine For Antigen Detection Streptococcus pneumoniae Antigen (M - Final 11/01/19 11:15 Blood Culture - Preliminary Blood - Peripheral Venous Staphylococcus Coagulase Neg 11/01/19 11:15 Blood Culture - Preliminary Blood - Peripheral Venous Pending Organism 11/01/19 12:45 Urine Culture - Final Urine - Urine Clean Catch Normal Urogenital Latasha -ID consult appreciated -IV abx -Vanco random level -Pre-dialysis blood draw Problems reviewed: Yes Code(s): R78.81 - BACTEREMIA Assessment/Plan See problem list
--- NOTE | 2019-11-03 12:43 | PN ---
Progress Note (short form) - Note Progress Note: More calm today. Reports breathing is improved. Intermittently on VM O2. Intake & Output 10/31/19 11/01/19 11/02/19 11/03/19 23:59 23:59 23:59 23:59 Intake Total 1400 350 Output Total 200 700 350 Balance -200 700 0 Weight 173 lb 6 oz 173 lb 9.6 oz Last Vital Signs Temp Pulse Resp BP Pulse Ox 98.2 F 73 20 125/68 100 11/03/19 09:57 11/03/19 09:57 11/03/19 09:57 11/03/19 09:57 11/03/19 08:41 Active Medications Acetaminophen (Tylenol -) 650 mg PO Q4H PRN PRN Reason: FEVER Epoetin Joe (Procrit -) 20,000 unit IVPUSH ONCE ONE Stop: 11/03/19 08:01 Heparin Sodium (Porcine) (Heparin -) 5,000 unit SQ BID [facility] Last Admin: 11/03/19 09:28 Dose: 5,000 unit Documented by: Hydralazine HCl (Apresoline -) 50 mg PO BID [facility] Last Admin: 11/03/19 09:28 Dose: 50 mg Documented by: Piperacillin Sod/Tazobactam (Sod 2.25 gm/ Dextrose) 50 mls @ 100 mls/hr IVPB Q8H-IV [facility]; Protocol Last Admin: 11/03/19 09:29 Dose: 100 mls/hr Documented by: Sodium Chloride (Normal Saline -) 250 mls @ 3,000 mls/hr IV PRN PRN PRN Reason: Hypotension during Dialysis Stop: 11/03/19 18:23 Insulin Aspart (Novolog Vial Sliding Scale -) 1 vial SQ ACHS [facility]; Protocol Last Admin: 11/03/19 11:08 Dose: Not Given Documented by: Methadone HCl (Dolophine -) 2.5 mg PO TID [facility] Last Admin: 11/03/19 06:00 Dose: 2.5 mg Documented by: Nifedipine (Procardia Xl -) 90 mg PO DAILY [facility] Last Admin: 11/03/19 09:28 Dose: 90 mg Documented by: Sitagliptin Phosphate (Januvia -) 25 mg PO DAILY@0700 [facility] Constitutional: Yes: No Distress Eyes: Yes: Conjunctiva Clear, EOM Intact HENT: Yes: Atraumatic, Normocephalic, Rhinnorhea Neck: Yes: Supple Cardiovascular: Yes: Regular Rate and Rhythm Respiratory: Yes: Diminished, Rales. No: Accessory Muscle Use, Cough, Rhonchi, SOB, SOB on Exertion, Stridor, Tachypnea, Wheezes Gastrointestinal: Yes: WNL, Normal Bowel Sounds, Soft Extremities: Yes: Amputation Integumentary: Yes: Venous Stasis Changes Neurological: Yes: Alert, Oriented Psychiatric: Yes: WNL, Alert, Oriented Labs: Laboratory Results - last 24 hr 11/02/19 11/02/19 11/02/19 15:10 15:10 15:10 WBC 10.1 H RBC 3.43 L Hgb 8.6 L Hct 27.5 L MCV 80.2 MCH 25.0 L MCHC 31.2 L RDW 22.2 H Plt Count 530 H MPV 7.0 L Absolute Neuts (auto) 8.1 H Neutrophils % 80.1 Lymphocytes % 6.9 L D Monocytes % 9.2 Eosinophils % 3.2 Basophils % 0.6 Nucleated RBC % 0 Sodium 135 L Potassium 4.7 Chloride 98 Carbon Dioxide 23 Anion Gap 13 BUN 37.2 H Creatinine 5.9 H Est GFR (CKD-EPI)AfAm 10.73 Est GFR (CKD-EPI)NonAf 9.26 POC Glucometer Random Glucose 95 Hemoglobin A1c % 6.5 H Calcium 8.6 Total Bilirubin 0.8 AST 11 L ALT 11 L Alkaline Phosphatase 74 Total Protein 6.3 L Albumin 2.6 L TSH 0.85 D 11/02/19 11/02/19 11/03/19 16:15 20:36 05:56 WBC RBC Hgb Hct MCV MCH MCHC RDW Plt Count MPV Absolute Neuts (auto) Neutrophils % Lymphocytes % Monocytes % Eosinophils % Basophils % Nucleated RBC % Sodium Potassium Chloride Carbon Dioxide Anion Gap BUN Creatinine Est GFR (CKD-EPI)AfAm Est GFR (CKD-EPI)NonAf POC Glucometer 134 219 223 Random Glucose Hemoglobin A1c % Calcium Total Bilirubin AST ALT Alkaline Phosphatase Total Protein Albumin TSH Imaging - Results Chest X-ray: Report Reviewed, Image Reviewed Problem List - Problems (1) Hypoglycemia Code(s): E16.2 - HYPOGLYCEMIA, UNSPECIFIED (2) Chronic anemia Code(s): D64.9 - ANEMIA, UNSPECIFIED (3) Heart failure Code(s): I50.9 - HEART FAILURE, UNSPECIFIED (4) Low grade fever Code(s): R50.9 - FEVER, UNSPECIFIED (5) Type 2 diabetes mellitus with diabetic chronic kidney disease Code(s): E11.22 - TYPE 2 DIABETES MELLITUS W DIABETIC CHRONIC KIDNEY DISEASE Qualifiers: Diabetes mellitus long-term insulin use: with long-term use Chronic kidney disease stage: stage 4 (severe) Qualified Code(s): E11.22 - Type 2 diabetes mellitus with diabetic chronic kidney disease; N18.4 - Chronic kidney disease, stage 4 (severe); Z79.4 - detention (current) use of insulin (6) 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 Code(s): E11.311 - TYPE 2 DIABETES W UNSP DIABETIC RETINOPATHY W MACULAR EDEMA (7) Acute on chronic diastolic heart failure Code(s): I50.33 - ACUTE ON CHRONIC DIASTOLIC (CONGESTIVE) HEART FAILURE (8) Anemia Code(s): D64.9 - ANEMIA, UNSPECIFIED Qualifiers: (9) Below-knee amputation Code(s): S88.119A - COMPLETE TRAUM AMP AT LEV BETW KN & ANKL, UNSP LOW LEG, INIT (10) COPD with emphysema Code(s): J43.9 - EMPHYSEMA, UNSPECIFIED (11) Chronic pain Code(s): G89.29 - OTHER CHRONIC PAIN (12) Chronic renal insufficiency, stage IV (severe) Code(s): N18.4 - CHRONIC KIDNEY DISEASE, STAGE 4 (SEVERE) (13) Diabetes mellitus Code(s): E11.9 - TYPE 2 DIABETES MELLITUS WITHOUT COMPLICATIONS Qualifiers: Diabetes mellitus type: type 2 Diabetes mellitus long-term insulin use: without salvage determiner use Diabetes mellitus complication status: without complication Qualified Code(s): E11.9 - Type 2 diabetes mellitus without complications (14) Diabetic neuropathy Code(s): E11.40 - TYPE 2 DIABETES MELLITUS WITH DIABETIC NEUROPATHY, UNSP Qualifiers: Diabetes mellitus type: type 2 Diabetes mellitus complication detail: diabetic polyneuropathy Qualified Code(s): E11.42 - Type 2 diabetes mellitus with diabetic polyneuropathy (15) ESRD (end stage renal disease) on dialysis Code(s): N18.6 - END STAGE RENAL DISEASE; Z99.2 - DEPENDENCE ON RENAL DIALYSIS (16) GERD (gastroesophageal reflux disease) Code(s): K21.9 - GASTRO-ESOPHAGEAL REFLUX DISEASE WITHOUT ESOPHAGITIS (17) HTN (hypertension) Code(s): I10 - ESSENTIAL (PRIMARY) HYPERTENSION Qualifiers: (18) Neuropathy Code(s): G62.9 - POLYNEUROPATHY, UNSPECIFIED (19) Osteoarthritis Code(s): M19.90 - UNSPECIFIED OSTEOARTHRITIS, UNSPECIFIED SITE Qualifiers: Laterality: bilateral (20) PTSD (post-traumatic stress disorder) Code(s): F43.10 - POST-TRAUMATIC STRESS DISORDER, UNSPECIFIED (21) Peripheral vascular disease due to secondary diabetes Code(s): E13.51 - OTH DIABETES W DIABETIC PERIPHERAL ANGIOPATHY W/O GANGRENE (22) S/P amputation Code(s): Z89.9 - ACQUIRED ABSENCE OF LIMB, UNSPECIFIED Assessment/Plan IMP: R/O COVID19 infection Low clinical suspicion for PNA Bacteremia PLAN: ABX per ID Supplemental O2 as needed Monitor off systemic steroids No smoking Follow COVID19 serology BD TX PRN HD for volume removal Dr Butt Problem List - Problems (1) Hypoglycemia Code(s): E16.2 - HYPOGLYCEMIA, UNSPECIFIED (2) Chronic anemia Code(s): D64.9 - ANEMIA, UNSPECIFIED (3) Heart failure Code(s): I50.9 - HEART FAILURE, UNSPECIFIED (4) Low grade fever Code(s): R50.9 - FEVER, UNSPECIFIED (5) Type 2 diabetes mellitus with diabetic chronic kidney disease Code(s): E11.22 - TYPE 2 DIABETES MELLITUS W DIABETIC CHRONIC KIDNEY DISEASE Qualifiers: Diabetes mellitus salvage determiner insulin use: with salvage determiner use Chronic kidney disease stage: stage 4 (severe) Qualified Code(s): E11.22 - Type 2 diabetes mellitus with diabetic chronic kidney disease; N18.4 - Chronic kidney disease, stage 4 (severe); Z79.4 - detention (current) use of insulin (6) 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 Code(s): E11.311 - TYPE 2 DIABETES W UNSP DIABETIC RETINOPATHY W MACULAR EDEMA (7) Acute on chronic diastolic heart failure Code(s): I50.33 - ACUTE ON CHRONIC DIASTOLIC (CONGESTIVE) HEART FAILURE (8) Anemia Code(s): D64.9 - ANEMIA, UNSPECIFIED Qualifiers: (9) Below-knee amputation Code(s): S88.119A - COMPLETE TRAUM AMP AT LEV BETW KN & ANKL, UNSP LOW LEG, INIT (10) COPD with emphysema Code(s): J43.9 - EMPHYSEMA, UNSPECIFIED (11) Chronic pain Code(s): G89.29 - OTHER CHRONIC PAIN (12) Chronic renal insufficiency, stage IV (severe) Code(s): N18.4 - CHRONIC KIDNEY DISEASE, STAGE 4 (SEVERE) (13) Diabetes mellitus Code(s): E11.9 - TYPE 2 DIABETES MELLITUS WITHOUT COMPLICATIONS Qualifiers: Diabetes mellitus type: type 2 Diabetes mellitus long-term insulin use: without long-term use Diabetes mellitus complication status: without complicat ion Qualified Code(s): E11.9 - Type 2 diabetes mellitus without complications (14) Diabetic neuropathy Code(s): E11.40 - TYPE 2 DIABETES MELLITUS WITH DIABETIC NEUROPATHY, UNSP Qualifiers: Diabetes mellitus type: type 2 Diabetes mellitus complication detail: diabetic polyneuropathy Qualified Code(s): E11.42 - Type 2 diabetes mellitus with diabetic polyneuropathy (15) ESRD (end stage renal disease) on dialysis Code(s): N18.6 - END STAGE RENAL DISEASE; Z99.2 - DEPENDENCE ON RENAL DIALYSIS (16) GERD (gastroesophageal reflux disease) Code(s): K21.9 - GASTRO-ESOPHAGEAL REFLUX DISEASE WITHOUT ESOPHAGITIS (17) HTN (hypertension) Code(s): I10 - ESSENTIAL (PRIMARY) HYPERTENSION Qualifiers: (18) Neuropathy Code(s): G62.9 - POLYNEUROPATHY, UNSPECIFIED (19) Osteoarthritis Code(s): M19.90 - UNSPECIFIED OSTEOARTHRITIS, UNSPECIFIED SITE Qualifiers: Laterality: bilateral (20) PTSD (post-traumatic stress disorder) Code(s): F43.10 - POST-TRAUMATIC STRESS DISORDER, UNSPECIFIED (21) Peripheral vascular disease due to secondary diabetes Code(s): E13.51 - OTH DIABETES W DIABETIC PERIPHERAL ANGIOPATHY W/O GANGRENE (22) S/P amputation Code(s): Z89.9 - ACQUIRED ABSENCE OF LIMB, UNSPECIFIED
[2019-11-03] MEDS ORDERED: SODIUM CHLORIDE 250 ML IV PRN (14:57)
[2019-11-03] MEDS ORDERED: EPOETIN ALFA 20,000 UNIT/1 ML VIAL IVPUSH ONE (15:00)
--- NOTE | 2019-11-03 15:26 | PN ---
Progress Note (short form) - Note Progress Note: feels well +blood cultures from admission ?source no further fevers no labs from AM Vital Signs Period Temp Pulse Resp BP Sys/Gutierrez Pulse Ox Last 24 Hr 97.3 F-98.6 F 56-95 18-30 110-143/62-77 96-100 cor-rrr lungs clear abd soft,nt ext bilateral bka CBC, BMP 11/02/19 15:10 11/02/19 15:10 Microbiology 11/02/19 16:50 Urine For Antigen Detection Legionella Antigen - Final 11/02/19 16:50 Urine For Antigen Detection Streptococcus pneumoniae Antigen (M - Final 11/01/19 11:15 Blood - Peripheral Venous Blood Culture - Preliminary Staphylococcus Coagulase Neg 11/01/19 11:15 Blood - Peripheral Venous Blood Culture - Preliminary Pending Organism 11/01/19 12:45 Urine - Urine Clean Catch Urine Culture - Final Normal Urogenital Latasha a/p fever-resolved ?source avf looks alright cxray with increased interstitial markings reports covd positive in June reports retested this past weekend and negative at the [place] d/c ivan spoke with HD nurse, repeat blood cultures and vanco level ordered with HD vanco 1 gram at end of HD today echo d/w primary provider
[2019-11-03] MEDS ORDERED: VANCOMYCIN 1,000 MG in DEXTROSE 5%-WATER - 250 ML IVPB ONE (16:38)
[2019-11-03 17:04] LABS: HEMATOCRIT 28.1 % (35.4-49); HEMOGLOBIN 8.6 GM/dL (11.7-16.9); MCH 24.4 pg (25.7-33.7); MCHC 30.8 g/dl (32.0-35.9); MEAN CELL VOLUME 79.2 fl (80-96); PLATELET COUNT 550 K/MM3 (134-434); RBC 3.54 M/mm3 (4.00-5.60); RDW 22.2 % (11.9-15.9); WHITE BLOOD COUNT 7.6 K/mm3 (4.0-10.0)
[2019-11-03 17:26] LABS: BLOOD UREA NITROGEN 52.1 mg/dL (7-18); CALCIUM 8.5 mg/dL (8.5-10.1); CREATININE 7.2 mg/dL (0.55-1.3); PHOSPHOROUS 7.4 mg/dL (2.5-4.9); POTASSIUM 4.9 mmol/L (3.5-5.1)
--- NOTE | 2019-11-03 17:59 | PN ---
Progress Note, Physician Chief Complaint: Hypoglycemia History of Present Illness: Seen and examined during dialysis awake and alert BP stable, access working well UF goal 2.5L he offers no acute complaints - Current Medication List Current Medications: Active Medications Acetaminophen (Tylenol -) 650 mg PO Q4H PRN PRN Reason: FEVER Heparin Sodium (Porcine) (Heparin -) 5,000 unit SQ BID [facility] Last Admin: 11/03/19 09:28 Dose: 5,000 unit Documented by: Hydralazine HCl (Apresoline -) 50 mg PO BID [facility] Last Admin: 11/03/19 09:28 Dose: 50 mg Documented by: Vancomycin HCl 1,000 mg/ (Dextrose) 250 mls @ 166.667 mls/hr IVPB ONCE ONE; Protocol Stop: 11/03/19 18:07 Last Admin: 11/03/19 17:39 Dose: 166.667 mls/hr Documented by: Insulin Aspart (Novolog Vial Sliding Scale -) 1 vial SQ ACHS [facility]; Protocol Last Admin: 11/03/19 11:08 Dose: Not Given Documented by: Methadone HCl (Dolophine -) 2.5 mg PO TID [facility] Last Admin: 11/03/19 13:50 Dose: 2.5 mg Documented by: Nifedipine (Procardia Xl -) 90 mg PO DAILY [facility] Last Admin: 11/03/19 09:28 Dose: 90 mg Documented by: Sitagliptin Phosphate (Januvia -) 25 mg PO DAILY@0700 [facility] - Objective Vital Signs: Vital Signs Temperature 98.2 F 11/03/19 15:27 Pulse Rate 79 11/03/19 15:30 Respiratory Rate 18 11/03/19 15:30 Blood Pressure 143/77 11/03/19 15:30 O2 Sat by Pulse Oximetry (%) 100 11/03/19 08:41 Constitutional: Yes: No Distress Neck: Yes: Supple Cardiovascular: Yes: Regular Rate and Rhythm Respiratory: Yes: Regular Gastrointestinal: Yes: Soft Extremities: Yes: Amputation. No: Cyanosis Edema: No Labs: CBC, BMP 11/03/19 15:30 11/03/19 15:30 INR, PTT INR 1.16 (0.83-1.09) H 11/01/19 11:15 Assessment/Plan 64 year old male with history of ESRD on HD (TTS), hypertension, PVD s/p BKA, diastolic HF, IDDM, CKD related anemia, prior COVID infection who presented with hypoglycemia and noted to have hypothermia. 1. Hypoglycemia 2. Hypothermia/Fever 3. Bilateral infilrates on CXR 4. ESRD on HD 5. Chronic anemia Tolerating dialysis well follow up repeat blood cultures from HD today ABx as per ID Renal diet ADRIAN with HD Miguel Jansen DO
[2019-11-03] MEDS ORDERED: MAG HYDROX/AL HYDROX/SIMETH -MYLANTA- ORAL SUSPENSION PO ONE (22:27)
[2019-11-03] MEDS ORDERED: INSULIN SLIDING SCALE (NOVOLOG) 1 VIAL SQ SCH (23:38)
--- NOTE | 2019-11-03 23:49 | CONSULT ---
Consult Consult Specialty:: Endocrine Referred by:: Dr.Iyad Garner Reason for Consultation:: DMT2 - History of Present Illness Chief Complaint: low sugars History of Present Illness: 64 yo M h/o diabetes mellitusT2, ESRD (on HD T//Sat), HTN, blt BKA, CHF, MRSA bacteremia osteomyelitis, , BIBA from [facility], with hypoglycemia since earlier today. Per EMS, the patient was at a nursing facility when neurohypoglycmic event bs 23mg./dl,pt was given glucagon and bs improved he was unaware of event,has been on low dose detemir 6iu bid,however bs have been difficult to control,denies cp ,nausea or vomiting. - Past Medical History CARE CLINICIAN: Yes: Peripheral Neuropathy Cardio/Vascular: Yes: CAD, CHF, HTN Pulmonary: Yes: Bronchitis, COPD, Pneumonia. No: O2 Dependent, Previously Intubated, Pulmonary Embolus, Pulmonary Fibrosis, Sleep Apnea Gastrointestinal: Yes: GERD Renal/: Yes: Renal Failure, Renal Inusuff, Hemodialysis Infectious Disease: Yes: Other (osteomyelitis) Psych: Yes: Depression Musculoskeletal: Yes: Other (chronic pain) Rheumatology: Yes: Other (history of osteomyelitis) Endocrine: Yes: Diabetes Mellitus - Past Surgical History Past Surgical History: Yes: Amputation (transmetatarsal of Left foot, b/l BKA uses prosthesis) - Alcohol/Substance Use Hx Alcohol Use: No Number of Drinks Daily: 2 (weekends) History of Substance Use: reports: None - Smoking History Smoking history: Smoker current status UNK Have you smoked in the past 12 months: No Aproximately how many cigarettes per day: 1 If you are a former smoker, when did you quit?: FEB 2019 - Social History Usual Living Arrangement: Alone ADL: Support Services History of Recent Travel: No Home Medications - Allergies Allergies/Adverse Reactions: Allergies Allergy/AdvReac Type Severity Reaction Status Date / Time shellfish derived Allergy Severe "HIVES" Verified 11/01/19 11:59 No Known Drug Allergies Allergy Verified 11/01/19 11:59 - Home Medications Home Medications: Ambulatory Orders Fluticasone Prop 0.05% Nasal [Flonase -] 1 - 2 spray NS DAILY #1 spray.pump 08/23/17 Doxazosin Mesylate 4 mg PO DAILY 05/11/19 Nifedipine ER [Procardia XL -] 90 mg PO DAILY 05/11/19 Albuterol 0.083% Nebulizer Coretta [Ventolin 0.083% Nebulizer Soln -] 1 neb NEB Q6H PRN 30 Days vial 05/23/19 Insulin Detemir [Levemir Flextouch] 6 unit SQ BID 05/28/19 Methadone HCl 2.5 mg PO TID 05/28/19 Tiotropium [place] [Spiriva Respimat] 1 inh .ROUTE BID 05/28/19 traZODone HCL [Desyrel -] 450 mg PO HS 06/22/19 hydrALAZINE HCL [Apresoline -] 50 mg PO BID #0 tablet 07/17/19 Acetaminophen [Tylenol .Regular Strength -] 650 mg PO Q4H PRN tablet 07/27/19 Torsemide [Demadex -] 100 mg PO DAILY tablet 07/27/19 Diphenoxylate 2.5/Atropine.025 [Lomotil -] 1 combo PO DAILY 11/01/19 Ipratropium/Albuterol Sulfate [Iprat-Albut 0.5-3(2.5) mg/3 ml] 3 ml IH PRN 11/01/19 Mag Hydrox/Aluminum Hyd/Simeth [Claudia-Lanta Liquid] 15 ml PO Q8H PRN 11/01/19 Sucroferric Oxyhydroxide [Velphoro] 2 tab PO TID 11/01/19 Review of Systems - Review of Systems Constitutional: reports: Lethargy Eyes: reports: No Symptoms HENT: reports: No Symptoms Neck: reports: No Symptoms Cardiovascular: reports: Shortness of Breath Respiratory: reports: Exercise Intolerance Gastrointestinal: reports: Bloating Genitourinary: reports: No Symptoms Breasts: reports: No Symptoms Reported Musculoskeletal: reports: Extremity Pain, Muscle Cramps, Muscle Weakness Integumentary: reports: No Symptoms Neurological: reports: Numbness Endocrine: reports: No Symptoms Physical Exam Vital Signs: Vital Signs Temperature 98.5 F 11/03/19 22:00 Pulse Rate 89 11/03/19 22:00 Respiratory Rate 20 11/03/19 22:00 Blood Pressure 150/80 11/03/19 22:00 O2 Sat by Pulse Oximetry (%) 96 11/03/19 21:00 Labs: CBC, BMP 11/03/19 15:30 11/03/19 15:30 Problem List - Problems (1) Bacteremia Code(s): R78.81 - BACTEREMIA (2) Hypoglycemia Code(s): E16.2 - HYPOGLYCEMIA, UNSPECIFIED (3) Pneumonia Code(s): J18.9 - PNEUMONIA, UNSPECIFIED ORGANISM (4) AV fistula thrombosis Code(s): T82.868A - THROMBOSIS DUE TO VASCULAR PROSTH DEV/GRFT, INIT Qualifiers: Encounter type: initial encounter Qualified Code(s): T82.868A - Thrombosis due to vascular prosthetic devices, implants and grafts, initial encounter (5) Admission for dialysis Code(s): Z99.2 - DEPENDENCE ON RENAL DIALYSIS (6) C. difficile colitis Code(s): A04.72 - ENTEROCOLITIS D/T CLOSTRIDIUM DIFFICILE, NOT SPCF RECUR (7) COVID-19 virus detected Code(s): U07.1 - COVID POSITIVE (8) Chronic anemia Code(s): D64.9 - ANEMIA, UNSPECIFIED Assessment/Plan Current Active Problems DMT2,esrd diabetic neuropathy Bacteremia (Acute) Hypoglycemia (Acute) Pneumonia (Acute) Abnormal Lab Results 11/03/19 11/03/19 15:30 15:30 RBC 3.54 L Hgb 8.6 L Hct 28.1 L MCV 79.2 L MCH 24.4 L MCHC 30.8 L RDW 22.2 H Plt Count 550 H MPV 7.0 L Sodium 132 L BUN 52.1 H Creatinine 7.2 H Random Glucose 314 H Phosphorus 7.4 H Laboratory Results - last 24 hr 11/03/19 11/03/19 11/03/19 05:56 15:30 15:30 WBC 7.6 RBC 3.54 L Hgb 8.6 L Hct 28.1 L MCV 79.2 L MCH 24.4 L MCHC 30.8 L RDW 22.2 H Plt Count 550 H MPV 7.0 L Sodium Potassium Chloride Carbon Dioxide Anion Gap BUN Creatinine Est GFR (CKD-EPI)AfAm Est GFR (CKD-EPI)NonAf POC Glucometer 223 Random Glucose Calcium Phosphorus Random Vancomycin 13.2 11/03/19 11/03/19 15:30 22:09 WBC RBC Hgb Hct MCV MCH MCHC RDW Plt Count MPV Sodium 132 L Potassium 4.9 Chloride 98 Carbon Dioxide 21 Anion Gap 12 BUN 52.1 H Creatinine 7.2 H Est GFR (CKD-EPI)AfAm 8.44 Est GFR (CKD-EPI)NonAf 7.28 POC Glucometer 299 Random Glucose 314 H Calcium 8.5 Phosphorus 7.4 H Random Vancomycin plan: low dose bgm acmeal coverage novolog levemir 8units am titrate to keep fasting below 140mg/dl ck hba1c diet and nutrition
[2019-11-04] MEDS: METHADONE HCL 5 MG TABLET PO SCH ×3 (05:55→21:22)
[2019-11-04] MEDS: INSULIN SLIDING SCALE (NOVOLOG) 1 VIAL SQ SCH ×3 (06:48→12:10)
[2019-11-04] MEDS ORDERED: INSULIN (LEVEMIR) 100 UNITS/ML UNITS SQ SCH ×2 (07:00)
--- NOTE | 2019-11-04 07:30 | PN ---
Progress Note, Physician History of Present Illness: PULMONARY ALERT,COMFORTABLE,-C/O SOB - Current Medication List Current Medications: Active Medications Acetaminophen (Tylenol -) 650 mg PO Q4H PRN PRN Reason: FEVER Heparin Sodium (Porcine) (Heparin -) 5,000 unit SQ BID [facility] Last Admin: 11/03/19 22:10 Dose: Not Given Documented by: Hydralazine HCl (Apresoline -) 50 mg PO BID [facility] Last Admin: 11/03/19 22:07 Dose: 50 mg Documented by: Insulin Aspart (Novolog Vial Sliding Scale -) 1 vial SQ TIDAC [facility]; Protocol Last Admin: 11/04/19 06:48 Dose: Not Given Documented by: Insulin Detemir (Levemir Vial) 8 units SQ AM [facility] Last Admin: 11/04/19 06:48 Dose: Not Given Documented by: Methadone HCl (Dolophine -) 2.5 mg PO TID [facility] Last Admin: 11/04/19 05:55 Dose: 2.5 mg Documented by: Nifedipine (Procardia Xl -) 90 mg PO DAILY [facility] Last Admin: 11/03/19 09:28 Dose: 90 mg Documented by: Sitagliptin Phosphate (Januvia -) 25 mg PO DAILY@0700 [facility] Last Admin: 11/04/19 06:53 Dose: 25 mg Documented by: - Objective Vital Signs: Vital Signs Temperature 98.5 F 11/03/19 22:00 Pulse Rate 89 11/03/19 22:00 Respiratory Rate 20 11/03/19 22:00 Blood Pressure 150/80 11/03/19 22:00 O2 Sat by Pulse Oximetry (%) 96 11/03/19 21:00 Constitutional: Yes: Well Nourished, Calm Eyes: Yes: WNL HENT: Yes: WNL Neck: Yes: WNL Cardiovascular: Yes: Regular Rate and Rhythm, S1, S2 Respiratory: Yes: CTA Bilaterally Gastrointestinal: Yes: Normal Bowel Sounds, Soft Extremities: Yes: WNL Edema: No Labs: CBC, BMP Problem List - Problems (1) Bacteremia Code(s): R78.81 - BACTEREMIA (2) ESRD (end stage renal disease) Code(s): N18.6 - END STAGE RENAL DISEASE Assessment/Plan Problem List - Problems (1) Hypoglycemia Code(s): E16.2 - HYPOGLYCEMIA, UNSPECIFIED (2) Chronic anemia Code(s): D64.9 - ANEMIA, UNSPECIFIED (3) Heart failure Code(s): I50.9 - HEART FAILURE, UNSPECIFIED (4) Low grade fever Code(s): R50.9 - FEVER, UNSPECIFIED (5) Type 2 diabetes mellitus with diabetic chronic kidney disease Code(s): E11.22 - TYPE 2 DIABETES MELLITUS W DIABETIC CHRONIC KIDNEY DISEASE Qualifiers: Diabetes mellitus long term care phlebotomist insulin use: with long term care phlebotomist use Chronic kidney disease stage: stage 4 (severe) Qualified Code(s): E11.22 - Type 2 diabetes mellitus with diabetic chronic kidney disease; N18.4 - Chronic kidney disease, stage 4 (severe); Z79.4 - retirement (current) use of insulin (6) 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 Code(s): E11.311 - TYPE 2 DIABETES W UNSP DIABETIC RETINOPATHY W MACULAR EDEMA (7) Acute on chronic diastolic heart failure Code(s): I50.33 - ACUTE ON CHRONIC DIASTOLIC (CONGESTIVE) HEART FAILURE (8) Anemia Code(s): D64.9 - ANEMIA, UNSPECIFIED Qualifiers: (9) Below-knee amputation Code(s): S88.119A - COMPLETE TRAUM AMP AT LEV BETW KN & ANKL, UNSP LOW LEG, INIT (10) COPD with emphysema Code(s): J43.9 - EMPHYSEMA, UNSPECIFIED (11) Chronic pain Code(s): G89.29 - OTHER CHRONIC PAIN (12) Chronic renal insufficiency, stage IV (severe) Code(s): N18.4 - CHRONIC KIDNEY DISEASE, STAGE 4 (SEVERE) (13) Diabetes mellitus Code(s): E11.9 - TYPE 2 DIABETES MELLITUS WITHOUT COMPLICATIONS Qualifiers: Diabetes mellitus type: type 2 Diabetes mellitus mcc insulin use: without long term care phlebotomist use Diabetes mellitus complication status: without complication Qualified Code(s): E11.9 - Type 2 diabetes mellitus without complications (14) Diabetic neuropathy Code(s): E11.40 - TYPE 2 DIABETES MELLITUS WITH DIABETIC NEUROPATHY, UNSP Qualifiers: Diabetes mellitus type: type 2 Diabetes mellitus complication detail: diabetic polyneuropathy Qualified Code(s): E11.42 - Type 2 diabetes mellitus with diabetic polyneuropathy (15) ESRD (end stage renal disease) on dialysis Code(s): N18.6 - END STAGE RENAL DISEASE; Z99.2 - DEPENDENCE ON RENAL DIALYSIS (16) GERD (gastroesophageal reflux disease) Code(s): K21.9 - GASTRO-ESOPHAGEAL REFLUX DISEASE WITHOUT ESOPHAGITIS (17) HTN (hypertension) Code(s): I10 - ESSENTIAL (PRIMARY) HYPERTENSION Qualifiers: (18) Neuropathy Code(s): G62.9 - POLYNEUROPATHY, UNSPECIFIED (19) Osteoarthritis Code(s): M19.90 - UNSPECIFIED OSTEOARTHRITIS, UNSPECIFIED SITE Qualifiers: Laterality: bilateral (20) PTSD (post-traumatic stress disorder) Code(s): F43.10 - POST-TRAUMATIC STRESS DISORDER, UNSPECIFIED (21) Peripheral vascular disease due to secondary diabetes Code(s): E13.51 - OTH DIABETES W DIABETIC PERIPHERAL ANGIOPATHY W/O GANGRENE (22) S/P amputation Code(s): Z89.9 - ACQUIRED ABSENCE OF LIMB, UNSPECIFIED Assessment/Plan IMP: R/O COVID19 infection Low clinical suspicion for PNA Bacteremia PLAN: ABX per ID Supplemental O2 as needed No smoking BD TX PRN HD for volume removal Covid serology pending Dr BAUM Problem List - Problems (1) Hypoglycemia Code(s): E16.2 - HYPOGLYCEMIA, UNSPECIFIED (2) Chronic anemia Code(s): D64.9 - ANEMIA, UNSPECIFIED (3) Heart failure Code(s): I50.9 - HEART FAILURE, UNSPECIFIED (4) Low grade fever Code(s): R50.9 - FEVER, UNSPECIFIED (5) Type 2 diabetes mellitus with diabetic chronic kidney disease Code(s): E11.22 - TYPE 2 DIABETES MELLITUS W DIABETIC CHRONIC KIDNEY DISEASE Qualifiers: Diabetes mellitus long term care phlebotomist insulin use: with long term care phlebotomist use Chronic kidney disease stage: stage 4 (severe) Qualified Code(s): E11.22 - Type 2 diabetes mellitus with diabetic chronic kidney disease; N18.4 - Chronic kidney disease, stage 4 (severe); Z79.4 - terminal superintendent (current) use of insulin (6) 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 Code(s): E11.311 - TYPE 2 DIABETES W UNSP DIABETIC RETINOPATHY W MACULAR EDEMA (7) Acute on chronic diastolic heart failure Code(s): I50.33 - ACUTE ON CHRONIC DIASTOLIC (CONGESTIVE) HEART FAILURE (8) Anemia Code(s): D64.9 - ANEMIA, UNSPECIFIED Qualifiers: (9) Below-knee amputation Code(s): S88.119A - COMPLETE TRAUM AMP AT [facility] BETW KN & ANKL, UNSP LOW LEG, INIT (10) COPD with emphysema Code(s): J43.9 - EMPHYSEMA, UNSPECIFIED (11) Chronic pain Code(s): G89.29 - OTHER CHRONIC PAIN (12) Chronic renal insufficiency, stage IV (severe) Code(s): N18.4 - CHRONIC KIDNEY DISEASE, STAGE 4 (SEVERE) (13) Diabetes mellitus Code(s): E11.9 - TYPE 2 DIABETES MELLITUS WITHOUT COMPLICATIONS Qualifiers: Diabetes mellitus type: type 2 Diabetes mellitus mcc insulin use: without long term care phlebotomist use Diabetes mellitus complication status: without complication Qualified Code(s): E11.9 - Type 2 diabetes mellitus without complications (14) Diabetic neuropathy Code(s): E11.40 - TYPE 2 DIABETES MELLITUS WITH DIABETIC NEUROPATHY, UNSP Qualifiers: Diabetes mellitus type: type 2 Diabetes mellitus complication detail: diabetic polyneuropathy Qualified Code(s): E11.42 - Type 2 diabetes mellitus with diabetic polyneuropathy (15) ESRD (end stage renal disease) on dialysis
[2019-11-04] MEDS: HEPARIN NA (PORCINE) 5,000 UNITS/ML 1ML VIAL SQ SCH ×2 (10:53→21:22)
[2019-11-04] MEDS: hydrALAZINE HCL 50 MG TABLET (FP) PO SCH ×2 (10:54→21:22)
[2019-11-04] MEDS: NIFEdipine E.R. 90 MG TABLET PO SCH (10:54)
--- NOTE | 2019-11-04 11:41 | PN ---
Progress Note, Physician Chief Complaint: Bacteremia ESRD Diabetes Mellitus type II Hypoglycemia History of Present Illness: NAD No complains today Tolerating Glucerna - Current Medication List Current Medications: Active Medications Acetaminophen (Tylenol -) 650 mg PO Q4H PRN PRN Reason: FEVER Heparin Sodium (Porcine) (Heparin -) 5,000 unit SQ BID [facility] Last Admin: 11/04/19 10:53 Dose: 5,000 unit Documented by: Hydralazine HCl (Apresoline -) 50 mg PO BID [facility] Last Admin: 11/04/19 10:54 Dose: 50 mg Documented by: Methadone HCl (Dolophine -) 2.5 mg PO TID [facility] Last Admin: 11/04/19 05:55 Dose: 2.5 mg Documented by: Nifedipine (Procardia Xl -) 90 mg PO DAILY [facility] Last Admin: 11/04/19 10:54 Dose: 90 mg Documented by: Sitagliptin Phosphate (Januvia -) 25 mg PO DAILY@0700 [facility] Last Admin: 11/04/19 06:53 Dose: 25 mg Documented by: - Objective Vital Signs: Vital Signs Temperature 98.5 F 11/03/19 22:00 Pulse Rate 89 11/03/19 22:00 Respiratory Rate 20 11/03/19 22:00 Blood Pressure 150/80 11/03/19 22:00 O2 Sat by Pulse Oximetry (%) 96 11/03/19 21:00 Constitutional: Yes: Well Nourished, No Distress, Calm Cardiovascular: Yes: Regular Rate and Rhythm Respiratory: Yes: Regular, CTA Bilaterally Gastrointestinal: Yes: Normal Bowel Sounds, Soft Genitourinary: Yes: WNL Musculoskeletal: Yes: WNL Extremities: Yes: Amputation (BLBKA) Edema: No Peripheral Pulses WNL: Yes Neurological: Yes: Alert, Oriented Psychiatric: Yes: Alert, Oriented Labs: CBC, BMP 11/03/19 15:30 11/03/19 15:30 INR, PTT INR 1.16 (0.83-1.09) H 11/01/19 11:15 Problem List - Problems (1) Hypoglycemia Assessment/Plan: -D/C IVF -BGM's more stable -D/C ISS -D/C levemir, was getting 6 U BID at [place] -Renal diet -A1c at 6.5 -Start Januvia 25 mg po daily to avoid any future hypoglycemic events -Repeat A1c in 3 months (jan), if >7.0, may increase Januvia to 50 mg po daily Problems reviewed: Yes Code(s): E16.2 - HYPOGLYCEMIA, UNSPECIFIED (2) Pneumonia Assessment/Plan: -Seen by ID and pulmonary -O2 as needed -Likely old scarring from previous covid Problems reviewed: Yes Code(s): J18.9 - PNEUMONIA, UNSPECIFIED ORGANISM (3) Chronic anemia Assessment/Plan: -2/2 to CKD -monitor trend Problems reviewed: Yes Code(s): D64.9 - ANEMIA, UNSPECIFIED (4) Diabetes mellitus Assessment/Plan: -A1c at 6.5 -Continue Januvia 25 mg po daily -Diabetic Renal diet -Ok to have Glucerna once a day -Repeat A1c in 3 months (Jan), if >7.0, may increase Januvia to 50 mg po daily Problems reviewed: Yes Code(s): E11.9 - TYPE 2 DIABETES MELLITUS WITHOUT COMPLICATIONS Qualifiers: Diabetes mellitus type: type 2 Diabetes mellitus superintendent terminal insulin use: without superintendent terminal use Diabetes mellitus complication status: without complication Qualified Code(s): E11.9 - Type 2 diabetes mellitus without complications (5) ESRD (end stage renal disease) on dialysis Assessment/Plan: -Nephrology consult -Dialysis TTS Problems reviewed: Yes Code(s): N18.6 - END STAGE RENAL DISEASE; Z99.2 - DEPENDENCE ON RENAL DIALYSIS (6) Bacteremia Assessment/Plan: -BC preliminary : Microbiology 11/01/19 11:15 Blood Culture - Preliminary Blood - Peripheral Venous Staphylococcus Coagulase Neg 11/02/19 16:50 Legionella Antigen - Final Urine For Antigen Detection Streptococcus pneumoniae Antigen (M - Final 11/01/19 11:15 Blood Culture - Preliminary Blood - Peripheral Venous Staphylococcus Coagulase Neg -ID consult appreciated -IV abx -For Echo today -Afebrile Problems reviewed: Yes Code(s): R78.81 - BACTEREMIA Assessment/Plan See problem list
--- NOTE | 2019-11-04 17:10 | PN ---
Progress Note (short form) - Note Progress Note: feels well +blood cultures from admission repeat blood cultures sent yesterday no complaints Vital Signs Period Temp Pulse Resp BP Sys/Gutierrez Pulse Ox Last 24 Hr 98.2 F-98.5 F 80-90 18-20 132-163/68-85 96-96 cor-rrr lungs clear abd soft,nt ext bilateral bka CBC, BMP 11/03/19 15:30 11/03/19 15:30 Microbiology 11/01/19 11:15 Blood - Peripheral Venous Blood Culture - Preliminary Staphylococcus Coagulase Neg 11/02/19 16:50 Urine For Antigen Detection Legionella Antigen - Final 11/02/19 16:50 Urine For Antigen Detection Streptococcus pneumoniae Antigen (M - Final 11/01/19 11:15 Blood - Peripheral Venous Blood Culture - Preliminary Staphylococcus Coagulase Neg 11/01/19 12:45 Urine - Urine Clean Catch Urine Culture - Final Normal Urogenital Latasha a/p fever resolved bacteremia- scn- 2 of 4 bottles if repeat blood cultures are negative in am he can be discharged to [place] to complete one week more of vancomycin (total 10 days) esrd/hd d/w primary provider
--- NOTE | 2019-11-04 17:59 | ECHO ---
Version: 1 Name: MARIAJOSE MALAVE Exam: Adult Echocardiogram Study Date: 11/04/2019, 12:14 PM Age: 64 Years MMode/2D Measurements & Calculations IVSd: 1.73 cm LVIDs: 3.4 cm LVIDd: 5.1 cm LVPWd: 1.75 cm LAV (MOD-bp): 109.0 ml ACS: 2.6 cm Ao root diam: 4.1 cm LVOT diam: 2.32 cm LA dimension: 4.5 cm Doppler Measurements & Calculations MV E max johan: 99.9 cm/sec Med E/e': 17.7 MV A max johan: 126.6 cm/sec Med Peak E' Johan: 5.7 cm/sec MV E/A: 0.79 Lat E/e': 14.3 Lat Peak E' Johan: 7.0 cm/sec Ao max P.1 mmHg CLAUDIA(I,D): 3.4 cm Ao mean P.4 mmHg LV V1 mean: 80.4 cm/sec Ao V2 max: 158.8 cm/sec LV V1 mean P.0 mmHg TR max johan: 249.1 cm/sec TR max P.0 mmHg Left Ventricle Moderate LVH with normal LV function, EF 62%. Abnormal diastolic relaxation. Right Ventricle The right ventricular systolic function is grossly normal. Atria LAE (4.4 cm). Right atrial size is normal. Mitral Valve The mitral valve is normal in structure and function. There is trace mitral regurgitation. Tricuspid Valve The tricuspid valve is normal in structure and function. There is mild tricuspid regurgitation. PASP 37 mmHg, mild pulmonary HTN. Aortic Valve The aortic valve is normal in structure and function. Pulmonic Valve The pulmonic valve is normal in structure and function. Great Vessels The aortic root is normal size. Pericardium/Pleura There is no pericardial effusion. Summary Statements Moderate LVH with normal LV function, EF 62%. The right ventricular systolic function is grossly normal. Abnormal diastolic relaxation LAE (4.4 cm) The mitral valve is normal in structure and function. There is trace mitral regurgitation. The tricuspid valve is normal in structure and function. There is mild tricuspid regurgitation. The aortic valve is normal in structure and function. PASP 37 mmHg, mild pulmonary HTN MD Dawood Holliday 11/04/2019, 5:59 PM Ordering Physician: Sarah Gutierrez Referring Physician: SARAH GUTIERREZ Performed By: Yoanna Barrow
[2019-11-05] MEDS: METHADONE HCL 5 MG TABLET PO SCH ×2 (06:08→17:51)
--- NOTE | 2019-11-05 10:23 | PN ---
Progress Note, Physician Chief Complaint: Bacteremia ESRD Diabetes Mellitus type II Hypoglycemia History of Present Illness: NAD No complains today, wants to return to [facility] Tolerating Glucerna Due for dialysis today with Vanco Needs 3 more doses of Vanco with dialysis - Current Medication List Current Medications: Active Medications Acetaminophen (Tylenol -) 650 mg PO Q4H PRN PRN Reason: FEVER Epoetin Joe (Procrit -) 20,000 unit IVPUSH ONCE ONE Stop: 11/05/19 08:56 Heparin Sodium (Porcine) (Heparin -) 5,000 unit SQ BID [facility] Last Admin: 11/04/19 21:22 Dose: 5,000 unit Documented by: Hydralazine HCl (Apresoline -) 50 mg PO BID [facility] Last Admin: 11/04/19 21:22 Dose: 50 mg Documented by: Sodium Chloride (Normal Saline -) 250 mls @ 3,000 mls/hr IV PRN PRN PRN Reason: Hypotension during Dialysis Stop: 11/06/19 08:55 Methadone HCl (Dolophine -) 2.5 mg PO TID [facility] Last Admin: 11/05/19 06:08 Dose: 2.5 mg Documented by: Nifedipine (Procardia Xl -) 90 mg PO DAILY [facility] Last Admin: 11/04/19 10:54 Dose: 90 mg Documented by: Sitagliptin Phosphate (Januvia -) 25 mg PO DAILY@0700 [facility] Last Admin: 11/05/19 06:08 Dose: 25 mg Documented by: Vancomycin HCl (Vancomycin (Pre-Docked)) 1,000 mg IVPB ONCE ONE; Protocol Stop: 11/05/19 09:17 - Objective Vital Signs: Vital Signs Temperature 98.3 F 11/05/19 06:00 Pulse Rate 91 H 11/05/19 06:00 Respiratory Rate 20 11/05/19 06:00 Blood Pressure 124/60 11/05/19 06:00 O2 Sat by Pulse Oximetry (%) 96 11/04/19 20:26 Constitutional: Yes: Well Nourished, No Distress, Calm Cardiovascular: Yes: Regular Rate and Rhythm Respiratory: Yes: Regular, CTA Bilaterally, On Venti-Mask Gastrointestinal: Yes: Normal Bowel Sounds, Soft Genitourinary: Yes: WNL Musculoskeletal: Yes: WNL Extremities: Yes: Amputation (BL BKA) Edema: No Peripheral Pulses WNL: Yes Neurological: Yes: Alert, Oriented Psychiatric: Yes: Alert, Oriented Labs: CBC, BMP 11/03/19 15:30 11/03/19 15:30 INR, PTT INR 1.16 (0.83-1.09) H 11/01/19 11:15 Problem List - Problems (1) Hypoglycemia Assessment/Plan: -D/C IVF -BGM's more stable -D/C ISS -D/C levemir, was getting 6 U BID at [place] -Renal diet -A1c at 6.5 -Start Januvia 25 mg po daily to avoid any future hypoglycemic events -Repeat A1c in 3 months (jan), if >7.0, may increase Januvia to 50 mg po daily Problems reviewed: Yes Code(s): E16.2 - HYPOGLYCEMIA, UNSPECIFIED (2) Pneumonia Assessment/Plan: -Seen by ID and pulmonary -O2 as needed -Likely old scarring from previous covid Problems reviewed: Yes Code(s): J18.9 - PNEUMONIA, UNSPECIFIED ORGANISM (3) Chronic anemia Assessment/Plan: -2/2 to CKD -monitor trend Problems reviewed: Yes Code(s): D64.9 - ANEMIA, UNSPECIFIED (4) Diabetes mellitus Assessment/Plan: -A1c at 6.5 -Continue Januvia 25 mg po daily -Diabetic Renal diet -Ok to have Glucerna once a day -Repeat A1c in 3 months (Jan), if >7.0, may increase Januvia to 50 mg po daily Problems reviewed: Yes Code(s): E11.9 - TYPE 2 DIABETES MELLITUS WITHOUT COMPLICATIONS Qualifiers: Diabetes mellitus type: type 2 Diabetes mellitus ferry terminal supervisor insulin use: without fdc use Diabetes mellitus complication status: without complication Qualified Code(s): E11.9 - Type 2 diabetes mellitus without complications (5) ESRD (end stage renal disease) on dialysis Assessment/Plan: -Nephrology consult -Dialysis TTS Problems reviewed: Yes Code(s): N18.6 - END STAGE RENAL DISEASE; Z99.2 - DEPENDENCE ON RENAL DIALYSIS (6) Bacteremia Assessment/Plan: -Repeat BC: Microbiology 11/01/19 11:15 Blood - Peripheral Venous Blood Culture - Final Staph Capitis Subsp Ureolyticu 11/01/19 11:15 Blood - Peripheral Venous Blood Culture - Final Staph Capitis Subsp Ureolyticu 11/03/19 15:30 Blood - Pre-Dialysis Blood Culture - Preliminary NO GROWTH OBTAINED AFTER 24 HOURS, INCUBATION TO CONTINUE FOR 4 DAYS. 11/03/19 15:30 Blood - Pre-Dialysis Blood Culture - Preliminary NO GROWTH OBTAINED AFTER 24 HOURS, INCUBATION TO CONTINUE FOR 4 DAYS. 11/02/19 16:50 Urine For Antigen Detection Legionella Antigen - Final 11/02/19 16:50 Urine For Antigen Detection Streptococcus pneumoniae Antigen (M - Final 11/01/19 12:45 Urine - Urine Clean Catch Urine Culture - Final Normal Urogenital Latasha -Vanco 3 more doses via dialysis Problems reviewed: Yes Code(s): R78.81 - BACTEREMIA Assessment/Plan See problem list
[2019-11-05] MEDS ORDERED: VANCOMYCIN 1,000 MG in DEXTROSE 5%-WATER - 250 ML IVPB ONE (10:45)
--- NOTE | 2019-11-05 11:09 | PN ---
Progress Note (short form) - Note Progress Note: Reports breathing is improved. Intermittently on VM O2. Wants to go home. Intake & Output 11/02/19 11/03/19 11/04/19 11/05/19 23:59 23:59 23:59 23:59 Intake Total 2558 555 2671 600 Output Total 700 3650 900 120 Balance 700 -2900 1150 480 Weight 173 lb 9.6 oz 170 lb 4.8 oz 175 lb 6 oz Last Vital Signs Temp Pulse Resp BP Pulse Ox 97.9 F 85 20 152/96 96 11/05/19 10:00 11/05/19 10:00 11/05/19 10:00 11/05/19 10:00 11/04/19 20:26 Active Medications Acetaminophen (Tylenol -) 650 mg PO Q4H PRN PRN Reason: FEVER Epoetin Joe (Procrit -) 20,000 unit IVPUSH ONCE ONE Stop: 11/05/19 08:56 Heparin Sodium (Porcine) (Heparin -) 5,000 unit SQ BID [facility] Last Admin: 11/04/19 21:22 Dose: 5,000 unit Documented by: Hydralazine HCl (Apresoline -) 50 mg PO BID [facility] Last Admin: 11/04/19 21:22 Dose: 50 mg Documented by: Sodium Chloride (Normal Saline -) 250 mls @ 3,000 mls/hr IV PRN PRN PRN Reason: Hypotension during Dialysis Stop: 11/06/19 08:55 Vancomycin HCl 1,000 mg/ (Dextrose) 250 mls @ 166.667 mls/hr IVPB ONCE ONE; Protocol Stop: 11/05/19 12:14 Methadone HCl (Dolophine -) 2.5 mg PO TID [facility] Last Admin: 11/05/19 06:08 Dose: 2.5 mg Documented by: Nifedipine (Procardia Xl -) 90 mg PO DAILY [facility] Last Admin: 11/04/19 10:54 Dose: 90 mg Documented by: Sitagliptin Phosphate (Januvia -) 25 mg PO DAILY@0700 [facility] Last Admin: 11/05/19 06:08 Dose: 25 mg Documented by: Vancomycin HCl (Vancomycin (Pre-Docked)) 1,000 mg IVPB ONCE ONE; Protocol Stop: 11/05/19 09:17 Constitutional: Yes: No Distress Eyes: Yes: Conjunctiva Clear, EOM Intact HENT: Yes: Atraumatic, Normocephalic, Rhinnorhea Neck: Yes: Supple Cardiovascular: Yes: Regular Rate and Rhythm Respiratory: Yes: Diminished, Rales. No: Accessory Muscle Use, Cough, Rhonchi, SOB, SOB on Exertion, Stridor, Tachypnea, Wheezes Gastrointestinal: Yes: WNL, Normal Bowel Sounds, Soft Extremities: Yes: Amputation Integumentary: Yes: Venous Stasis Changes Neurological: Yes: Alert, Oriented Psychiatric: Yes: WNL, Alert, Oriented Labs: Laboratory Results - last 24 hr 11/01/19 11/03/19 12:45 15:30 COVID-19 (DEE DEE) Not detected Hep C Ab Diagnostic 0.1 Imaging - Results Chest X-ray: Report Reviewed, Image Reviewed Problem List - Problems (1) Hypoglycemia Code(s): E16.2 - HYPOGLYCEMIA, UNSPECIFIED (2) Chronic anemia Code(s): D64.9 - ANEMIA, UNSPECIFIED (3) Heart failure Code(s): I50.9 - HEART FAILURE, UNSPECIFIED (4) Low grade fever Code(s): R50.9 - FEVER, UNSPECIFIED (5) Type 2 diabetes mellitus with diabetic chronic kidney disease Code(s): E11.22 - TYPE 2 DIABETES MELLITUS W DIABETIC CHRONIC KIDNEY DISEASE Qualifiers: Diabetes mellitus continuous churn buttermaker insulin use: with halfway use Chronic kidney disease stage: stage 4 (severe) Qualified Code(s): E11.22 - Type 2 diabetes mellitus with diabetic chronic kidney disease; N18.4 - Chronic kidney disease, stage 4 (severe); Z79.4 - rodent exterminator (current) use of insulin (6) 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 Code(s): E11.311 - TYPE 2 DIABETES W UNSP DIABETIC RETINOPATHY W MACULAR EDEMA (7) Acute on chronic diastolic heart failure Code(s): I50.33 - ACUTE ON CHRONIC DIASTOLIC (CONGESTIVE) HEART FAILURE (8) Anemia Code(s): D64.9 - ANEMIA, UNSPECIFIED Qualifiers: (9) Below-knee amputation Code(s): S88.119A - COMPLETE TRAUM AMP AT LEV BETW KN & ANKL, UNSP LOW LEG, INIT (10) COPD with emphysema Code(s): J43.9 - EMPHYSEMA, UNSPECIFIED (11) Chronic pain Code(s): G89.29 - OTHER CHRONIC PAIN (12) Chronic renal insufficiency, stage IV (severe) Code(s): N18.4 - CHRONIC KIDNEY DISEASE, STAGE 4 (SEVERE) (13) Diabetes mellitus Code(s): E11.9 - TYPE 2 DIABETES MELLITUS WITHOUT COMPLICATIONS Qualifiers: Diabetes mellitus type: type 2 Diabetes mellitus continuous churn buttermaker insulin use: without halfway use Diabetes mellitus complication status: without complication Qualified Code(s): E11.9 - Type 2 diabetes mellitus without complications (14) Diabetic neuropathy Code(s): E11.40 - TYPE 2 DIABETES MELLITUS WITH DIABETIC NEUROPATHY, UNSP Qualifiers: Diabetes mellitus type: type 2 Diabetes mellitus complication detail: diabetic polyneuropathy Qualified Code(s): E11.42 - Type 2 diabetes mellitus with diabetic polyneuropathy (15) ESRD (end stage renal disease) on dialysis Code(s): N18.6 - END STAGE RENAL DISEASE; Z99.2 - DEPENDENCE ON RENAL DIALYSIS (16) GERD (gastroesophageal reflux disease) Code(s): K21.9 - GASTRO-ESOPHAGEAL REFLUX DISEASE WITHOUT ESOPHAGITIS (17) HTN (hypertension) Code(s): I10 - ESSENTIAL (PRIMARY) HYPERTENSION Qualifiers: (18) Neuropathy Code(s): G62.9 - POLYNEUROPATHY, UNSPECIFIED (19) Osteoarthritis Code(s): M19.90 - UNSPECIFIED OSTEOARTHRITIS, UNSPECIFIED SITE Qualifiers: Laterality: bilateral (20) PTSD (post-traumatic stress disorder) Code(s): F43.10 - POST-TRAUMATIC STRESS DISORDER, UNSPECIFIED (21) Peripheral vascular disease due to secondary diabetes Code(s): E13.51 - OTH DIABETES W DIABETIC PERIPHERAL ANGIOPATHY W/O GANGRENE (22) S/P amputation Code(s): Z89.9 - ACQUIRED ABSENCE OF LIMB, UNSPECIFIED Assessment/Plan IMP: COVID19 infection ruled out Low clinical suspicion for PNA Bacteremia PLAN: ABX per ID Supplemental O2 as needed Monitor off systemic steroids No smoking BD TX PRN HD for volume removal Dr Butt Problem List - Problems (1) Hypoglycemia Code(s): E16.2 - HYPOGLYCEMIA, UNSPECIFIED (2) Chronic anemia Code(s): D64.9 - ANEMIA, UNSPECIFIED (3) Heart failure Code(s): I50.9 - HEART FAILURE, UNSPECIFIED (4) Low grade fever Code(s): R50.9 - FEVER, UNSPECIFIED (5) Type 2 diabetes mellitus with diabetic chronic kidney disease Code(s): E11.22 - TYPE 2 DIABETES MELLITUS W DIABETIC CHRONIC KIDNEY DISEASE Qualifiers: Diabetes mellitus halfway insulin use: with continuous churn buttermaker use Chronic kidney disease stage: stage 4 (severe) Qualified Code(s): E11.22 - Type 2 diabetes mellitus with diabetic chronic kidney disease; N18.4 - Chronic kidney disease, stage 4 (severe); Z79.4 - nursing home (current) use of insulin (6) 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 Code(s): E11.311 - TYPE 2 DIABETES W UNSP DIABETIC RETINOPATHY W MACULAR EDEMA (7) Acute on chronic diastolic heart failure Code(s): I50.33 - ACUTE ON CHRONIC DIASTOLIC (CONGESTIVE) HEART FAILURE (8) Anemia Code(s): D64.9 - ANEMIA, UNSPECIFIED Qualifiers: (9) Below-knee amputation Code(s): S88.119A - COMPLETE TRAUM AMP AT LEV BETW KN & ANKL, UNSP LOW LEG, INIT (10) COPD with emphysema Code(s): J43.9 - EMPHYSEMA, UNSPECIFIED (11) Chronic pain Code(s): G89.29 - OTHER CHRONIC PAIN (12) Chronic renal insufficiency, stage IV (severe) Code(s): N18.4 - CHRONIC KIDNEY DISEASE, STAGE 4 (SEVERE) (13) Diabetes mellitus Code(s): E11.9 - TYPE 2 DIABETES MELLITUS WITHOUT COMPLICATIONS Qualifiers: Diabetes mellitus type: type 2 Diabetes mellitus continuous churn buttermaker insulin use: without halfway use Diabetes mellitus complication status: without complication Qualified Code(s): E11.9 - Type 2 diabetes mellitus without complications (14) Diabetic neuropathy Code(s): E11.40 - TYPE 2 DIABETES MELLITUS WITH DIABETIC NEUROPATHY, UNSP Qualifiers: Diabetes mellitus type: type 2 Diabetes mellitus complication detail: diabetic polyneuropathy Qualified Code(s): E11.42 - Type 2 diabetes mellitus with diabetic polyneuropathy (15) ESRD (end stage renal disease) on dialysis Code(s): N18.6 - END STAGE RENAL DISEASE; Z99.2 - DEPENDENCE ON RENAL DIALYSIS (16) GERD (gastroesophageal reflux disease) Code(s): K21.9 - GASTRO-ESOPHAGEAL REFLUX DISEASE WITHOUT ESOPHAGITIS (17) HTN (hypertension) Code(s): I10 - ESSENTIAL (PRIMARY) HYPERTENSION Qualifiers: (18) Neuropathy Code(s): G62.9 - POLYNEUROPATHY, UNSPECIFIED (19) Osteoarthritis Code(s): M19.90 - UNSPECIFIED OSTEOARTHRITIS, UNSPECIFIED SITE Qualifiers: Laterality: bilateral (20) PTSD (post-traumatic stress disorder) Code(s): F43.10 - POST-TRAUMATIC STRESS DISORDER, UNSPECIFIED (21) Peripheral vascular disease due to secondary diabetes Code(s): E13.51 - OTH DIABETES W DIABETIC PERIPHERAL ANGIOPATHY W/O GANGRENE (22) S/P amputation Code(s): Z89.9 - ACQUIRED ABSENCE OF LIMB, UNSPECIFIED
[2019-11-05] MEDS ORDERED: VANCOMYCIN 1 GRAM (PRE-DOCKED) 1,000 MG/250 ML BAG IVPB ONE (11:45)
--- NOTE | 2019-11-05 12:12 | DS ---
Physical Examination Vital Signs: Vital Signs Temperature 97.9 F 11/05/19 10:00 Pulse Rate 85 11/05/19 10:00 Respiratory Rate 20 11/05/19 10:00 Blood Pressure 152/96 11/05/19 10:00 O2 Sat by Pulse Oximetry (%) 96 11/05/19 09:00 Findings/Remarks: (1) Hypoglycemia Assessment/Plan: -D/C IVF -BGM's more stable -D/C ISS -D/C levemir, was getting 6 U BID at OR -Renal diet, can have 1 glucerna daily -A1c at 6.5 -Start Januvia 25 mg po daily to avoid any future hypoglycemic events -Repeat A1c in 3 months (jan), if >7.0, may increase Januvia to 50 mg po daily Problems reviewed: Yes Code(s): E16.2 - HYPOGLYCEMIA, UNSPECIFIED (2) Pneumonia Assessment/Plan: -Seen by ID and pulmonary -O2 as needed -Likely old scarring from previous covid Problems reviewed: Yes Code(s): J18.9 - PNEUMONIA, UNSPECIFIED ORGANISM (3) Chronic anemia Assessment/Plan: -2/2 to CKD -monitor trend Problems reviewed: Yes Code(s): D64.9 - ANEMIA, UNSPECIFIED (4) Diabetes mellitus Assessment/Plan: -A1c at 6.5 -Continue Januvia 25 mg po daily -Diabetic Renal diet -Ok to have Glucerna once a day -Repeat A1c in 3 months (Jan), if >7.0, may increase Januvia to 50 mg po daily Problems reviewed: Yes Code(s): E11.9 - TYPE 2 DIABETES MELLITUS WITHOUT COMPLICATIONS Qualifiers: Diabetes mellitus type: type 2 Diabetes mellitus long term acute care registered nurse insulin use: without long term acute care registered nurse use Diabetes mellitus complication status: without complication Qualified Code(s): E11.9 - Type 2 diabetes mellitus without complications (5) ESRD (end stage renal disease) on dialysis Assessment/Plan: -Nephrology consult -Dialysis TTS Problems reviewed: Yes Code(s): N18.6 - END STAGE RENAL DISEASE; Z99.2 - DEPENDENCE ON RENAL DIALYSIS (6) Bacteremia Assessment/Plan: -Repeat BC: Microbiology 11/01/19 11:15 Blood - Peripheral Venous Blood Culture - Final Staph Capitis Subsp Ureolyticu 11/01/19 11:15 Blood - Peripheral Venous Blood Culture - Final Staph Capitis Subsp Ureolyticu 11/03/19 15:30 Blood - Pre-Dialysis Blood Culture - Preliminary NO GROWTH OBTAINED AFTER 24 HOURS, INCUBATION TO CO NTINUE FOR 4 DAYS. 11/03/19 15:30 Blood - Pre-Dialysis Blood Culture - Preliminary NO GROWTH OBTAINED AFTER 24 HOURS, INCUBATION TO CONTINUE FOR 4 DAYS. 11/02/19 16:50 Urine For Antigen Detection Legionella Antigen - Final 11/02/19 16:50 Urine For Antigen Detection Streptococcus pneumoniae Antigen (M - Final 11/01/19 12:45 Urine - Urine Clean Catch Urine Culture - Final Normal Urogenital Latasha -Vanco 3 more doses via dialysis Problems reviewed: Yes Code(s): R78.81 - BACTEREMIA Assessment/Plan See problem list Constitutional: Yes: Well Nourished, No Distress, Calm Cardiovascular: Yes: Regular Rate and Rhythm Respiratory: Yes: Regular, CTA Bilaterally Gastrointestinal: Yes: Normal Bowel Sounds, Soft Musculoskeletal: Yes: WNL Extremities: Yes: Amputation (BL BKNA) Edema: No Neurological: Yes: Alert, Oriented Psychiatric: Yes: Alert, Oriented Labs: CBC, BMP 11/03/19 15:30 11/03/19 15:30 Discharge Summary Problems reviewed: Yes Reason For Visit: HYPOGLYCEMIA Current Active Problems Bacteremia (Acute) Bacteremia (Acute) Fever (Acute) Hypoglycemia (Acute) Pneumonia (Acute) Condition: Stable - Instructions Diet, Activity, Other Instructions: Glucerna once day Repeat A1c in 3 months (jan), if >7.0,increase Januvia to 50 mg po daily D/C Levemir and insulin sliding scale OK to have Glucerna 1 a day Referrals: Antonio Bhakta MD [Primary Care Provider] - - Home Medications Comprehensive Discharge Medication List: Ambulatory Orders Fluticasone Prop 0.05% Nasal [Flonase -] 1 - 2 spray NS DAILY #1 spray.pump 08/23/17 Doxazosin Mesylate 4 mg PO DAILY 05/11/19 Nifedipine ER [Procardia XL -] 90 mg PO DAILY 05/11/19 Albuterol 0.083% Nebulizer Coretta [Ventolin 0.083% Nebulizer Soln -] 1 neb NEB Q6H PRN 30 Days vial 05/23/19 Insulin Detemir [Levemir Flextouch] 6 unit SQ BID 05/28/19 Methadone HCl 2.5 mg PO TID 05/28/19 Tiotropium [place] [Spiriva Respimat] 1 inh .ROUTE BID 05/28/19 traZODone HCL [Desyrel -] 450 mg PO HS 06/22/19 hydrALAZINE HCL [Apresoline -] 50 mg PO BID #0 tablet 07/17/19 Acetaminophen [Tylenol .Regular Strength -] 650 mg PO Q4H PRN tablet 07/27/19 Torsemide [Demadex -] 100 mg PO DAILY tablet 07/27/19 Diphenoxylate 2.5/Atropine.025 [Lomotil -] 1 combo PO DAILY 11/01/19 Ipratropium/Albuterol Sulfate [Iprat-Albut 0.5-3(2.5) mg/3 ml] 3 ml IH PRN 11/01/19 Mag Hydrox/Aluminum Hyd/Simeth [Claudia-Lanta Liquid] 15 ml PO Q8H PRN 11/01/19 Sucroferric Oxyhydroxide [Velphoro] 2 tab PO TID 11/01/19 Prescription Drug Monitoring Program (I-STOP) results: I-STOP reviewed and no issues identified
[2019-11-05 14:43] VITALS: TEMP 98.4
[2019-11-05] MEDS ORDERED: VANCOMYCIN 1 GM in D5W (PRE-DOCKED) 1,000 MG/250 ML IVPB ONE (15:00)
[2019-11-05] MEDS ORDERED: SODIUM CHLORIDE 250 ML IV PRN (15:00)
[2019-11-05] MEDS ORDERED: EPOETIN ALFA 20,000 UNIT/1 ML VIAL IVPUSH ONE (15:00)
[2019-11-05 15:26] LABS: HEMATOCRIT 27.4 % (35.4-49); HEMOGLOBIN 8.4 GM/dL (11.7-16.9); MCH 24.4 pg (25.7-33.7); MCHC 30.5 g/dl (32.0-35.9); MEAN CELL VOLUME 79.9 fl (80-96); PLATELET COUNT 539 K/MM3 (134-434); RBC 3.44 M/mm3 (4.00-5.60); WHITE BLOOD COUNT 8.1 K/mm3 (4.0-10.0)
[2019-11-05 15:54] LABS: BLOOD UREA NITROGEN 50.5 mg/dL (7-18); CALCIUM 8.8 mg/dL (8.5-10.1); CREATININE 6.9 mg/dL (0.55-1.3); POTASSIUM 5.2 mmol/L (3.5-5.1)
--- NOTE | 2019-11-05 16:20 | PN ---
Progress Note, Physician Chief Complaint: Hypoglycemia History of Present Illness: Seen and examined during dialysis awake and alert, offers no acute complaints. Blood pressure is stable, access functioning well. Denies any fevers, chills, shortness of breath, chest pain, abdominal pain. - Current Medication List Current Medications: Active Medications Acetaminophen (Tylenol -) 650 mg PO Q4H PRN PRN Reason: FEVER Heparin Sodium (Porcine) (Heparin -) 5,000 unit SQ BID [facility] Last Admin: 11/04/19 21:22 Dose: 5,000 unit Documented by: Hydralazine HCl (Apresoline -) 50 mg PO BID [facility] Last Admin: 11/04/19 21:22 Dose: 50 mg Documented by: Sodium Chloride (Normal Saline -) 250 mls @ 3,000 mls/hr IV PRN PRN PRN Reason: Hypotension during Dialysis Stop: 11/06/19 14:59 Methadone HCl (Dolophine -) 2.5 mg PO TID [facility] Last Admin: 11/05/19 06:08 Dose: 2.5 mg Documented by: Nifedipine (Procardia Xl -) 90 mg PO DAILY [facility] Last Admin: 11/04/19 10:54 Dose: 90 mg Documented by: Sitagliptin Phosphate (Januvia -) 25 mg PO DAILY@0700 [facility] Last Admin: 11/05/19 06:08 Dose: 25 mg Documented by: - Objective Vital Signs: Vital Signs Temperature 98.4 F 11/05/19 13:00 Pulse Rate 77 11/05/19 14:45 Respiratory Rate 18 11/05/19 14:45 Blood Pressure 186/93 H 11/05/19 14:45 O2 Sat by Pulse Oximetry (%) 96 11/05/19 09:00 Constitutional: Yes: No Distress HENT: Yes: Atraumatic Neck: Yes: Supple Cardiovascular: Yes: Regular Rate and Rhythm Respiratory: Yes: Regular Gastrointestinal: Yes: Soft Extremities: Yes: Amputation. No: Cyanosis Edema: No Neurological: Yes: Alert, Oriented Labs: CBC, BMP 11/05/19 13:45 11/05/19 13:45 INR, PTT INR 1.16 (0.83-1.09) H 11/01/19 11:15 Assessment/Plan 64 year old male with history of ESRD on HD (TTS), hypertension, PVD s/p BKA, diastolic HF, IDDM, CKD related anemia, prior COVID infection who presented with hypoglycemia and noted to have hypothermia. 1. Hypoglycemia 2. Hypothermia/Fever 3. Bilateral infilrates on CXR 4. ESRD on HD 5. Chronic anemia Tolerating dialysis well today. Blood pressure is stable. Goal ultrafiltration 2 L as tolerated. Will receive vancomycin 1 g postdialysis today. Repeat cultures have been negative thus far. As per ID recommendations we will continue vancomycin 1 g with dialysis for 3 additional treatments after discharge. Diabetic medications adjusted by primary team. Stable for discharge from renal perspective. Miguel Jansen DO
[2019-11-05 17:23] VITALS: BP 181/96; PULSE 76
[2019-11-05] MEDS: hydrALAZINE HCL 50 MG TABLET (FP) PO SCH (17:50)
[2019-11-05] MEDS: HEPARIN NA (PORCINE) 5,000 UNITS/ML 1ML VIAL SQ SCH (17:51)
[2019-11-05] MEDS: NIFEdipine E.R. 90 MG TABLET PO SCH (17:51)
== END 2019-11-05 17:57 | DRG 637 ==
LOC: JER 11:06 → JERBED 15:38 → J8W 11-02 03:39
PROVIDERS: ADMIT Family Medicine; ATTEND Family Medicine
PROC: 5A1D70Z Performance of Urinary Filtration, Intermittent, Less than 6 Hours Per Day (ICD-10-PCS; principal; 2019-11-03)
DX: E11.649 Type 2 diabetes mellitus with hypoglycemia without coma (principal); J18.9 Pneumonia, unspecified organism; I13.2 Hypertensive heart and chronic kidney disease with heart failure and with stage 5 chronic kidney disease, or end stage renal disease; I50.32 Chronic diastolic (congestive) heart failure; R78.81 Bacteremia; E11.22 Type 2 diabetes mellitus with diabetic chronic kidney disease; N18.6 End stage renal disease; D63.1 Anemia in chronic kidney disease; K21.9 Gastro-esophageal reflux disease without esophagitis; F32.9 Major depressive disorder, single episode, unspecified; G89.29 Other chronic pain; J44.9 Chronic obstructive pulmonary disease, unspecified; R50.9 Fever, unspecified; I25.10 Atherosclerotic heart disease of native coronary artery without angina pectoris; E11.42 Type 2 diabetes mellitus with diabetic polyneuropathy; R68.0 Hypothermia, not associated with low environmental temperature; Z89.511 Acquired absence of right leg below knee; Z79.4 Long term (current) use of insulin; Z99.2 Dependence on renal dialysis; Z89.512 Acquired absence of left leg below knee
CPT/HCPCS: 36415; 36600; 71045-TC-FY; 80048; 80053; 81003; 82803; 82962; 83036; 83605; 84100; 84443; 84484; 85025; 85027; 85610; 85730; 86803; 86850; 86900; 86901; 87040; 87086; 87186; 87899; 93005; 93010; 93306-TC; 99285-25; G0480; J0131; J0885; J1644; U0003

== ENCOUNTER 2020-08-23 13:37 | Inpatient (IN) | payer OTHER ==
[2020-08-23 15:14] LABS: VENOUS BASE EXCESS -2.1 mmol/L (-2-2); VENOUS O2 SATURATION 89.5 % (70-80); VENOUS PCO2 52.3 mmHg (38-52); VENOUS PH 7.292 (7.310-7.410)
[2020-08-23 15:17] LABS: BASO % 0.9 % (0-2.0); EOS % 1.5 % (0-4.5); HEMATOCRIT 28.8 % (35.4-49); HEMOGLOBIN 9.3 GM/dL (11.7-16.9); LYMPH % 10.8 % (8-40); MCH 24.8 pg (25.7-33.7); MCHC 32.4 g/dl (32.0-35.9); MEAN CELL VOLUME 76.5 fl (80-96); MEAN PLT VOLUME 7.5 fl (7.5-11.1); MONO % 9.2 % (3.8-10.2); NEUT % 77.6 % (42.8-82.8); PLATELET COUNT 289 K/MM3 (134-434); RBC 3.76 M/mm3 (4.00-5.60); RDW 21.2 % (11.9-15.9); WHITE BLOOD COUNT 7.9 K/mm3 (4.0-10.0)
[2020-08-23 15:25] LABS: INR 1.02 (0.83-1.09); PROTHROMBIN TIME (PATIENT) 12.3 SEC (9.7-13.0)
[2020-08-23 15:27] LABS: ACTIVATED PTT 36.5 SECONDS (25.2-36.5)
[2020-08-23 15:34] LABS: CHLORIDE 98 mmol/L (98-107); SODIUM 131 mmol/L (136-145)
[2020-08-23 15:36] LABS: ALBUMIN 2.8 g/dl (3.4-5.0); ANION GAP 7 MMOL/L (8-16); BLOOD UREA NITROGEN 26.4 mg/dL (7-18); CALCIUM 8.6 mg/dL (8.5-10.1); CO2 25 mmol/L (21-32); GLUCOSE,RANDOM 487 mg/dL (74-106)
[2020-08-23 15:38] LABS: BILIRUBIN,DIRECT 0.1 mg/dL (0.0-0.2); SGPT/ALT 21 U/L (13-61)
[2020-08-23 15:40] LABS: BILIRUBIN,TOTAL 0.5 mg/dL (0.2-1); CREATININE 4.3 mg/dL (0.55-1.3); SGOT/AST 16 U/L (15-37); TOT PROT 6.5 g/dl (6.4-8.2)
[2020-08-23 15:42] LABS: ALK PHOS 158 U/L (45-117)
[2020-08-23 15:43] LABS: LDH 192 U/L (87-246)
[2020-08-23] MEDS ORDERED: LIDOCAINE HCL 1%, 10 MG/ML (20ML VIAL) ONE (16:49)
[2020-08-23] MEDS ORDERED: INSULIN (NOVOLOG) ASPART 100 UNITS/ML 10ML VIAL SQ ONE (16:59)
[2020-08-23] MEDS ORDERED: MIDAZOLAM HCL 2 MG/2 ML SINGLE DOSE VIAL IVPUSH ONE (17:15)
[2020-08-23] MEDS ORDERED: MIDAZOLAM HCL 2 MG/2 ML SINGLE DOSE VIAL ONE (17:24)
[2020-08-23] MEDS ORDERED: morphine CARPU-JECT 2 MG/1 ML DISP.SYRIN IVPUSH ONE (21:07)
[2020-08-23] MEDS: INSULIN SLIDING SCALE (NOVOLOG) 1 VIAL SQ SCH (21:57)
[2020-08-24] MEDS ORDERED: morphine SULFATE 4 MG/ML VIAL ONE (03:16)
[2020-08-24 07:25] LABS: BASO % 0.7 % (0-2.0); EOS % 2.9 % (0-4.5); HEMATOCRIT 28.3 % (35.4-49); LYMPH % 15.6 % (8-40); MCH 24.9 pg (25.7-33.7); MCHC 31.9 g/dl (32.0-35.9); MEAN CELL VOLUME 78.1 fl (80-96); MEAN PLT VOLUME 7.8 fl (7.5-11.1); MONO % 10.9 % (3.8-10.2); NEUT % 69.9 % (42.8-82.8); PLATELET COUNT 300 K/MM3 (134-434); RBC 3.62 M/mm3 (4.00-5.60); RDW 21.5 % (11.9-15.9); WHITE BLOOD COUNT 7.2 K/mm3 (4.0-10.0)
[2020-08-24 07:46] LABS: CHLORIDE 102 mmol/L (98-107); SODIUM 135 mmol/L (136-145)
[2020-08-24 07:49] LABS: ALBUMIN 2.6 g/dl (3.4-5.0); ANION GAP 7 MMOL/L (8-16); BLOOD UREA NITROGEN 29.8 mg/dL (7-18); CALCIUM 8.8 mg/dL (8.5-10.1); CO2 26 mmol/L (21-32)
[2020-08-24 07:53] LABS: SGOT/AST 19 U/L (15-37); SGPT/ALT 21 U/L (13-61)
[2020-08-24 07:55] LABS: BILIRUBIN,TOTAL 0.5 mg/dL (0.2-1); TOT PROT 6.3 g/dl (6.4-8.2)
[2020-08-24 07:56] LABS: ALK PHOS 100 U/L (45-117); GLUCOSE,RANDOM 42 mg/dL (74-106)
[2020-08-24] MEDS ORDERED: DEXTROSE 50%-WATER - 25 GM/50 ML VIAL IVPUSH ONE ×2 (07:57→08:02)
[2020-08-24] MEDS ORDERED: DEXTROSE 50%-WATER 25 GM/50 ML DISP.SYRIN ONE ×2 (08:04→08:07)
[2020-08-24 08:29] LABS: EPI CELLS 7 /uL (0-25.1); HYALINE CASTS 0 /uL (0-3.1); URINE APPEARANCE CLEAR; URINE BACTERIA 10 /uL (0-1359); URINE BILIRUBIN NEGATIVE (NEGATIVE); URINE COLOR YELLOW; URINE GLUCOSE (UA) 3+ (NEGATIVE); URINE KETONE NEGATIVE (NEGATIVE); URINE LEUK ESTERASE NEGATIVE (NEGATIVE); URINE NITRITE NEGATIVE (NEGATIVE); URINE PROTEIN 2+ (NEGATIVE); URINE RBC 33 /uL (0-23.9); URINE UROBILINOGEN 0.2 mg/dL (0.2-1.0); URINE WBC 19 /uL (0-25.8)
[2020-08-24 08:52] LABS: N-TERMINAL BNP 92373.6 pg/ml (5-125)
[2020-08-24] MEDS: INSULIN SLIDING SCALE (NOVOLOG) 1 VIAL SQ SCH ×4 (08:59→21:07)
[2020-08-24] MEDS ORDERED: METHADONE HCL 5 MG TABLET ONE (09:22)
[2020-08-24] MEDS ORDERED: MORPHINE SULFATE 2 MG/ML VIAL IVPUSH PRN (10:04)
[2020-08-24] MEDS: MORPHINE SULFATE 2 MG/ML VIAL IVPUSH PRN ×3 (10:26→21:47)
[2020-08-24] MEDS: TORSEMIDE 20 MG TABLET (FP) PO SCH (10:29)
[2020-08-24] MEDS: hydrALAZINE HCL 25 MG TABLET (FP) PO SCH ×2 (10:30→21:00)
[2020-08-24] MEDS: NIFEdipine E.R. 90 MG TABLET PO SCH (10:30)
[2020-08-24] MEDS: METHADONE HCL 5 MG TABLET PO SCH ×3 (10:31→21:01)
[2020-08-24] MEDS ORDERED: SODIUM CHLORIDE 250 ML IV PRN (13:27)
[2020-08-24] MEDS ORDERED: oxyCODONE HCL 5 MG TABLET PO PRN (13:39)
[2020-08-24] MEDS ORDERED: PT OWN MED DRAWER 7, Y5N ONE (20:41)
[2020-08-25] MEDS: MORPHINE SULFATE 2 MG/ML VIAL IVPUSH PRN ×4 (02:47→21:27)
[2020-08-25] MEDS: METHADONE HCL 5 MG TABLET PO SCH ×3 (06:06→21:16)
[2020-08-25] MEDS: INSULIN SLIDING SCALE (NOVOLOG) 1 VIAL SQ SCH ×4 (06:16→22:26)
[2020-08-25] MEDS: NIFEdipine E.R. 90 MG TABLET PO SCH ×2 (08:16→09:37)
[2020-08-25] MEDS: TORSEMIDE 20 MG TABLET (FP) PO SCH (09:38)
[2020-08-25] MEDS: hydrALAZINE HCL 25 MG TABLET (FP) PO SCH ×2 (09:38→21:14)
[2020-08-25] MEDS ORDERED: EPOETIN ALFA-EPBX 10,000 UNIT/ML VIAL IVPUSH ONE (12:00)
[2020-08-25 13:31] LABS: BASO % 0.7 % (0-2.0); EOS % 3.9 % (0-4.5); HEMATOCRIT 29.2 % (35.4-49); HEMOGLOBIN 9.3 GM/dL (11.7-16.9); LYMPH % 11.7 % (8-40); MCH 24.7 pg (25.7-33.7); MEAN CELL VOLUME 77.1 fl (80-96); MEAN PLT VOLUME 8.5 fl (7.5-11.1); MONO % 9.3 % (3.8-10.2); NEUT % 74.4 % (42.8-82.8); PLATELET COUNT 350 K/MM3 (134-434); RBC 3.78 M/mm3 (4.00-5.60); RDW 21.3 % (11.9-15.9); WHITE BLOOD COUNT 8.3 K/mm3 (4.0-10.0)
[2020-08-25 13:55] LABS: ALBUMIN 2.6 g/dl (3.4-5.0); BLOOD UREA NITROGEN 53.5 mg/dL (7-18); CALCIUM 8.5 mg/dL (8.5-10.1)
[2020-08-25 13:56] LABS: MAGNESIUM 2.4 mg/dL (1.8-2.4)
[2020-08-25 13:59] LABS: CREATININE 6.3 mg/dL (0.55-1.3)
[2020-08-25 14:00] LABS: BILIRUBIN,TOTAL 0.4 mg/dL (0.2-1); PHOSPHOROUS 7.8 mg/dL (2.5-4.9); TOT PROT 6.1 g/dl (6.4-8.2)
[2020-08-25] MEDS: VITAMINS A AND D TOPICAL OINTMENT 60 GM TUBE TP SCH (17:00)
[2020-08-25] MEDS: oxyCODONE HCL 5 MG TABLET PO PRN (21:15)
[2020-08-26] MEDS: VITAMINS A AND D TOPICAL OINTMENT 60 GM TUBE TP SCH ×4 (01:57→18:15)
[2020-08-26] MEDS: MORPHINE SULFATE 2 MG/ML VIAL IVPUSH PRN ×3 (02:10→20:47)
[2020-08-26] MEDS: oxyCODONE HCL 5 MG TABLET PO PRN ×2 (06:28→21:32)
[2020-08-26] MEDS: METHADONE HCL 5 MG TABLET PO SCH ×3 (06:29→21:27)
[2020-08-26] MEDS: INSULIN SLIDING SCALE (NOVOLOG) 1 VIAL SQ SCH ×4 (06:31→21:38)
[2020-08-26] MEDS: hydrALAZINE HCL 25 MG TABLET (FP) PO SCH ×2 (10:08→21:27)
[2020-08-26] MEDS: NIFEdipine E.R. 90 MG TABLET PO SCH (10:08)
[2020-08-26] MEDS: TORSEMIDE 20 MG TABLET (FP) PO SCH (10:08)
[2020-08-26] MEDS ORDERED: SODIUM CHLORIDE 250 ML IV PRN ×2 (12:32→15:26)
[2020-08-27] MEDS: VITAMINS A AND D TOPICAL OINTMENT 60 GM TUBE TP SCH ×4 (00:07→18:21)
[2020-08-27] MEDS: MORPHINE SULFATE 2 MG/ML VIAL IVPUSH PRN ×2 (04:18→14:07)
[2020-08-27] MEDS: METHADONE HCL 5 MG TABLET PO SCH ×3 (06:05→21:03)
[2020-08-27] MEDS: INSULIN SLIDING SCALE (NOVOLOG) 1 VIAL SQ SCH ×5 (06:14→21:04)
[2020-08-27] MEDS ORDERED: EPOETIN ALFA-EPBX 10,000 UNIT/ML VIAL IVPUSH ONE (09:45)
[2020-08-27 10:21] LABS: EOS % 4.9 % (0-4.5); HEMATOCRIT 28.1 % (35.4-49); LYMPH % 11.7 % (8-40); MCH 24.6 pg (25.7-33.7); MCHC 32.1 g/dl (32.0-35.9); MEAN CELL VOLUME 76.8 fl (80-96); MEAN PLT VOLUME 7.8 fl (7.5-11.1); MONO % 8.7 % (3.8-10.2); NEUT % 73.7 % (42.8-82.8); PLATELET COUNT 365 K/MM3 (134-434); RBC 3.65 M/mm3 (4.00-5.60); RDW 21.7 % (11.9-15.9); WHITE BLOOD COUNT 7.9 K/mm3 (4.0-10.0)
[2020-08-27 10:41] LABS: CALCIUM 8.5 mg/dL (8.5-10.1)
[2020-08-27 10:42] LABS: ALBUMIN 2.5 g/dl (3.4-5.0); BLOOD UREA NITROGEN 50.4 mg/dL (7-18); MAGNESIUM 2.2 mg/dL (1.8-2.4)
[2020-08-27 10:45] LABS: PHOSPHOROUS 6.3 mg/dL (2.5-4.9)
[2020-08-27 10:46] LABS: BILIRUBIN,TOTAL 0.4 mg/dL (0.2-1); TOT PROT 6.1 g/dl (6.4-8.2)
[2020-08-27 11:54] LABS: ANISOCYTOSIS 1+; MACROCYTOSIS 0; PLATELET ESTIMATE NORMAL
[2020-08-27] MEDS ORDERED: PT OWN MED DRAWER 7, Y5N ONE ×2 (11:58→13:47)
[2020-08-27] MEDS: hydrALAZINE HCL 25 MG TABLET (FP) PO SCH ×3 (12:09→21:04)
[2020-08-27] MEDS: TORSEMIDE 20 MG TABLET (FP) PO SCH ×2 (12:09→13:56)
[2020-08-27] MEDS: NIFEdipine E.R. 90 MG TABLET PO SCH ×2 (12:09→13:56)
[2020-08-27] MEDS: MELATONIN 1 MG TABLET PO SCH (21:03)
[2020-08-27] MEDS: oxyCODONE HCL 5 MG TABLET PO PRN (21:04)
[2020-08-28] MEDS: VITAMINS A AND D TOPICAL OINTMENT 60 GM TUBE TP SCH ×4 (00:10→17:44)
[2020-08-28] MEDS: METHADONE HCL 5 MG TABLET PO SCH ×3 (05:51→21:02)
[2020-08-28] MEDS: INSULIN SLIDING SCALE (NOVOLOG) 1 VIAL SQ SCH ×4 (06:04→21:03)
[2020-08-28] MEDS: oxyCODONE HCL 5 MG TABLET PO PRN (06:05)
[2020-08-28 08:05] LABS: BASO % 0.9 % (0-2.0); EOS % 4.8 % (0-4.5); HEMATOCRIT 30.3 % (35.4-49); HEMOGLOBIN 9.7 GM/dL (11.7-16.9); LYMPH % 15.1 % (8-40); MCH 24.5 pg (25.7-33.7); MCHC 31.9 g/dl (32.0-35.9); MEAN CELL VOLUME 76.8 fl (80-96); MEAN PLT VOLUME 8.1 fl (7.5-11.1); MONO % 9.7 % (3.8-10.2); NEUT % 69.5 % (42.8-82.8); PLATELET COUNT 338 K/MM3 (134-434); RBC 3.95 M/mm3 (4.00-5.60); RDW 21.9 % (11.9-15.9); WHITE BLOOD COUNT 8.8 K/mm3 (4.0-10.0)
[2020-08-28 08:17] LABS: CALCIUM 8.5 mg/dL (8.5-10.1); MAGNESIUM 2.2 mg/dL (1.8-2.4)
[2020-08-28 08:19] LABS: BLOOD UREA NITROGEN 39.7 mg/dL (7-18)
[2020-08-28 08:21] LABS: ALBUMIN 2.7 g/dl (3.4-5.0)
[2020-08-28 08:24] LABS: BILIRUBIN,TOTAL 0.5 mg/dL (0.2-1); TOT PROT 6.5 g/dl (6.4-8.2)
[2020-08-28] MEDS: hydrALAZINE HCL 25 MG TABLET (FP) PO SCH ×2 (09:57→21:02)
[2020-08-28] MEDS: NIFEdipine E.R. 90 MG TABLET PO SCH (09:57)
[2020-08-28] MEDS: TORSEMIDE 20 MG TABLET (FP) PO SCH (09:57)
[2020-08-28] MEDS: LIDOCAINE 5% TOPICAL PATCH TP SCH ×2 (13:43→13:54)
[2020-08-28] MEDS: MORPHINE SULFATE 2 MG/ML VIAL IVPUSH PRN (20:57)
[2020-08-28] MEDS: MELATONIN 1 MG TABLET PO SCH (21:02)
[2020-08-28] MEDS ORDERED: LIDOCAINE PATCH REMOVAL MC SCH ×2 (22:00)
[2020-08-29] MEDS: VITAMINS A AND D TOPICAL OINTMENT 60 GM TUBE TP SCH ×3 (00:19→13:58)
[2020-08-29] MEDS: METHADONE HCL 5 MG TABLET PO SCH (05:39)
[2020-08-29] MEDS ORDERED: DEXTROSE 50%-WATER - 25 GM/50 ML VIAL IVPUSH ONE (05:56)
[2020-08-29] MEDS ORDERED: DEXTROSE 50%-WATER 25 GM/50 ML DISP.SYRIN ONE (06:08)
[2020-08-29] MEDS: DEXTROSE 50%-WATER 25 GM/50 ML DISP.SYRIN IVPUSH ONE ×2 (06:11→06:22)
[2020-08-29] MEDS: INSULIN SLIDING SCALE (NOVOLOG) 1 VIAL SQ SCH ×2 (06:19→12:00)
[2020-08-29 09:17] LABS: BASO % 1.2 % (0-2.0); EOS % 3.3 % (0-4.5); HEMATOCRIT 27.3 % (35.4-49); HEMOGLOBIN 8.8 GM/dL (11.7-16.9); LYMPH % 14.2 % (8-40); MCH 24.7 pg (25.7-33.7); MCHC 32.4 g/dl (32.0-35.9); MEAN CELL VOLUME 76.2 fl (80-96); MEAN PLT VOLUME 7.4 fl (7.5-11.1); MONO % 10.7 % (3.8-10.2); NEUT % 70.6 % (42.8-82.8); PLATELET COUNT 324 K/MM3 (134-434); RBC 3.58 M/mm3 (4.00-5.60); RDW 22.4 % (11.9-15.9); WHITE BLOOD COUNT 7.5 K/mm3 (4.0-10.0)
[2020-08-29 09:26] LABS: INR 1.11 (0.83-1.09); PROTHROMBIN TIME (PATIENT) 13.4 SEC (9.7-13.0)
[2020-08-29 10:09] LABS: ALBUMIN 2.6 g/dl (3.4-5.0); BLOOD UREA NITROGEN 51.5 mg/dL (7-18); CALCIUM 8.4 mg/dL (8.5-10.1); MAGNESIUM 2.3 mg/dL (1.8-2.4)
[2020-08-29 10:12] LABS: CREATININE 6.1 mg/dL (0.55-1.3)
[2020-08-29 10:13] LABS: BILIRUBIN,TOTAL 0.5 mg/dL (0.2-1)
[2020-08-29] MEDS: hydrALAZINE HCL 25 MG TABLET (FP) PO SCH (11:15)
[2020-08-29] MEDS: NIFEdipine E.R. 90 MG TABLET PO SCH (11:16)
[2020-08-29] MEDS: LIDOCAINE 5% TOPICAL PATCH TP SCH ×2 (11:16)
[2020-08-29] MEDS: TORSEMIDE 20 MG TABLET (FP) PO SCH (11:16)
[2020-08-29] MEDS ORDERED: ceFAZolin SODIUM 1 GM VIAL IVPB ONE (13:50)
[2020-08-29] MEDS ORDERED: BUPIVACAINE HCL/PF 0.25% (2.5MG/ML) 10 ML VIAL IJ ONE (16:37)
[2020-08-29] MEDS ORDERED: LIDOCAINE 1%/EPI 1:100000 (20 ML MULTI DOSE VIAL) IJ ONE (16:43)
[2020-08-29] MEDS ORDERED: PROMETHAZINE HCL 25 MG/1 ML VIAL IVPUSH PRN (17:36)
[2020-08-29] MEDS ORDERED: ONDANSETRON 4 MG/2 ML VIAL IVPUSH PRN (17:36)
[2020-08-29] MEDS ORDERED: NALOXONE HCL 0.4 MG/ML VIAL IVPUSH PRN (17:37)
[2020-08-29] MEDS: FENTANYL/BUPIVACAINE/NS/PF - PCEA - 50 ML DISP.SYRIN EP SCH ×2 (18:15→22:55)
[2020-08-29] MEDS ORDERED: MORPHINE SULFATE 2 MG/ML VIAL IVPUSH PRN (18:30)
[2020-08-29] MEDS: hydrALAZINE HCL 20 MG/ML VIAL IVPUSH PRN ×2 (19:15→21:30)
[2020-08-29] MEDS ORDERED: CHLORHEXIDINE GLUCONATE 4% CLEANSER FOR DECOLONIZATION TP SCH (22:00)
[2020-08-29] MEDS ORDERED: LIDOCAINE PATCH REMOVAL MC SCH ×2 (22:00)
[2020-08-29] MEDS: MUPIROCIN 2% TOPICAL OINTMENT FOR DECOLONIZATION NS SCH (22:30)
[2020-08-29] MEDS ORDERED: PCA PUMP NR ONE (22:50)
[2020-08-30] MEDS: hydrALAZINE HCL 25 MG TABLET (FP) PO SCH ×3 (01:27→22:01)
[2020-08-30] MEDS: METHADONE HCL 5 MG TABLET PO SCH ×4 (01:27→22:00)
[2020-08-30] MEDS: MELATONIN 1 MG TABLET PO SCH ×2 (01:28→22:01)
[2020-08-30] MEDS ORDERED: hydrALAZINE HCL 20 MG/ML VIAL IVPUSH ONE (02:13)
[2020-08-30] MEDS: LIDOCAINE PATCH REMOVAL MC SCH ×2 (02:45→22:01)
[2020-08-30] MEDS: INSULIN SLIDING SCALE (NOVOLOG) 1 VIAL SQ SCH ×5 (03:18→22:20)
[2020-08-30] MEDS: VITAMINS A AND D TOPICAL OINTMENT 60 GM TUBE TP SCH ×4 (06:00→17:05)
[2020-08-30 07:03] LABS: BASO % 0.5 % (0-2.0); EOS % 0.1 % (0-4.5); HEMATOCRIT 32.8 % (35.4-49); HEMOGLOBIN 10.3 GM/dL (11.7-16.9); LYMPH % 6.3 % (8-40); MCH 24.5 pg (25.7-33.7); MCHC 31.4 g/dl (32.0-35.9); MEAN CELL VOLUME 77.9 fl (80-96); MEAN PLT VOLUME 7.4 fl (7.5-11.1); MONO % 10.2 % (3.8-10.2); NEUT % 82.9 % (42.8-82.8); PLATELET COUNT 348 K/MM3 (134-434); RBC 4.22 M/mm3 (4.00-5.60); RDW 22.8 % (11.9-15.9); WHITE BLOOD COUNT 11.4 K/mm3 (4.0-10.0)
[2020-08-30 07:20] LABS: INR 1.09 (0.83-1.09); PROTHROMBIN TIME (PATIENT) 13.1 SEC (9.7-13.0)
[2020-08-30 07:23] LABS: ACTIVATED PTT 37.9 SECONDS (25.2-36.5)
[2020-08-30 07:36] LABS: CALCIUM 7.8 mg/dL (8.5-10.1)
[2020-08-30 07:37] LABS: ALBUMIN 2.5 g/dl (3.4-5.0); BLOOD UREA NITROGEN 39.6 mg/dL (7-18); MAGNESIUM 2.1 mg/dL (1.8-2.4)
[2020-08-30 07:40] LABS: CREATININE 5.2 mg/dL (0.55-1.3); PHOSPHOROUS 7.2 mg/dL (2.5-4.9)
[2020-08-30 07:41] LABS: BILIRUBIN,TOTAL 0.5 mg/dL (0.2-1); TOT PROT 6.4 g/dl (6.4-8.2)
[2020-08-30] MEDS ORDERED: oxyCODONE HCL 5 MG TABLET PO PRN (08:44)
[2020-08-30] MEDS: FENTANYL/BUPIVACAINE/NS/PF - PCEA - 50 ML DISP.SYRIN EP SCH ×2 (09:24→15:38)
[2020-08-30] MEDS: NIFEdipine E.R. 90 MG TABLET PO SCH (09:34)
[2020-08-30] MEDS: TORSEMIDE 20 MG TABLET (FP) PO SCH (09:34)
[2020-08-30] MEDS: LIDOCAINE 5% TOPICAL PATCH TP SCH (09:35)
[2020-08-30] MEDS ORDERED: LIDOCAINE 5% TOPICAL PATCH TP SCH (10:00)
[2020-08-30] MEDS ORDERED: SODIUM CHLORIDE 250 ML IV PRN (10:44)
[2020-08-30] MEDS: MUPIROCIN 2% TOPICAL OINTMENT FOR DECOLONIZATION NS SCH ×2 (11:05→22:20)
[2020-08-30] MEDS ORDERED: ACETAMINOPHEN 1000 MG/100 ML VIAL (NON FORMULARY) IVPB ONE (11:14)
[2020-08-30] MEDS ORDERED: METHADONE HCL 5 MG TABLET PO SCH (11:15)
[2020-08-30] MEDS ORDERED: FENTANYL/BUPIVACAINE/NS/PF - PCEA - 50 ML DISP.SYRIN EP SCH ×3 (14:33→15:04)
[2020-08-30] MEDS ORDERED: ALBUTEROL SO4 HFA INHALER IH PRN (21:01)
[2020-08-30] MEDS ORDERED: PT OWN MED DRAWER 7, Y5N ONE (21:34)
[2020-08-30] MEDS: CHLORHEXIDINE GLUCONATE 4% CLEANSER FOR DECOLONIZATION TP SCH (22:01)
[2020-08-31] MEDS: VITAMINS A AND D TOPICAL OINTMENT 60 GM TUBE TP SCH ×4 (02:35→18:43)
[2020-08-31] MEDS: oxyCODONE HCL 5 MG TABLET PO PRN ×2 (05:25→22:39)
[2020-08-31 06:08] LABS: ARTERIAL BLD GAS O2 SATURATION 69.4 mmHg (95-98); ARTERIAL BLOOD GAS BASE EXCESS 4.7 mmol/L (-2-2); ARTERIAL BLOOD GAS pH 7.368 (7.350-7.450)
[2020-08-31 06:39] LABS: ARTERIAL BLOOD GAS PO2 38.1 mmHg (80-100)
[2020-08-31] MEDS: INSULIN SLIDING SCALE (NOVOLOG) 1 VIAL SQ SCH ×4 (06:49→23:00)
[2020-08-31 07:16] LABS: BASO % 0.9 % (0-2.0); EOS % 1.6 % (0-4.5); HEMATOCRIT 28.7 % (35.4-49); HEMOGLOBIN 9.1 GM/dL (11.7-16.9); MCH 24.8 pg (25.7-33.7); MCHC 31.7 g/dl (32.0-35.9); MEAN CELL VOLUME 78.2 fl (80-96); MEAN PLT VOLUME 7.6 fl (7.5-11.1); MONO % 11.4 % (3.8-10.2); NEUT % 77.1 % (42.8-82.8); PLATELET COUNT 317 K/MM3 (134-434); RBC 3.67 M/mm3 (4.00-5.60); RDW 22.4 % (11.9-15.9); WHITE BLOOD COUNT 9.3 K/mm3 (4.0-10.0)
[2020-08-31 08:24] LABS: BILIRUBIN,TOTAL 0.4 mg/dL (0.2-1)
[2020-08-31 08:25] LABS: TOT PROT 6.2 g/dl (6.4-8.2)
[2020-08-31 08:26] LABS: BLOOD UREA NITROGEN 27.9 mg/dL (7-18); CREATININE 4.3 mg/dL (0.55-1.3)
[2020-08-31 08:27] LABS: ALBUMIN 2.7 g/dl (3.4-5.0); PHOSPHOROUS 5.8 mg/dL (2.5-4.9)
[2020-08-31 08:31] LABS: CALCIUM 7.8 mg/dL (8.5-10.1)
[2020-08-31 08:32] LABS: MAGNESIUM 1.9 mg/dL (1.8-2.4)
[2020-08-31 08:52] LABS: N-TERMINAL BNP 84232.5 pg/ml (5-125)
[2020-08-31] MEDS: LIDOCAINE 5% TOPICAL PATCH TP SCH (10:26)
[2020-08-31] MEDS: hydrALAZINE HCL 25 MG TABLET (FP) PO SCH ×2 (10:26→22:40)
[2020-08-31] MEDS: METHADONE HCL 5 MG TABLET PO SCH ×2 (10:26→22:43)
[2020-08-31] MEDS: NIFEdipine E.R. 90 MG TABLET PO SCH (10:28)
[2020-08-31] MEDS: TORSEMIDE 20 MG TABLET (FP) PO SCH (10:28)
[2020-08-31 10:59] LABS: ANISOCYTOSIS 3+; MACROCYTOSIS 1+; OVALOCYTE 1+; PLATELET ESTIMATE NORMAL
[2020-08-31] MEDS: FENTANYL/BUPIVACAINE/NS/PF - PCEA - 50 ML DISP.SYRIN EP SCH ×3 (12:15→23:00)
[2020-08-31] MEDS: MUPIROCIN 2% TOPICAL OINTMENT FOR DECOLONIZATION NS SCH ×2 (12:17→22:40)
[2020-08-31] MEDS ORDERED: SODIUM CHLORIDE 250 ML IV PRN (12:22)
[2020-08-31 13:29] VITALS: BMI 21.9
[2020-08-31] MEDS ORDERED: PT OWN MED DRAWER 7, Y5N ONE (22:37)
[2020-08-31] MEDS: MELATONIN 1 MG TABLET PO SCH (22:39)
[2020-08-31] MEDS: INSULIN (LEVEMIR) 100 UNITS/ML UNITS SQ SCH (22:41)
[2020-08-31] MEDS: CHLORHEXIDINE GLUCONATE 4% CLEANSER FOR DECOLONIZATION TP SCH (22:41)
[2020-08-31] MEDS: LIDOCAINE PATCH REMOVAL MC SCH (22:41)
[2020-09-01] MEDS: VITAMINS A AND D TOPICAL OINTMENT 60 GM TUBE TP SCH ×3 (00:25→18:18)
[2020-09-01] MEDS: FENTANYL/BUPIVACAINE/NS/PF - PCEA - 50 ML DISP.SYRIN EP SCH ×3 (05:21→14:55)
[2020-09-01] MEDS ORDERED: EPOETIN ALFA-EPBX 10,000 UNIT/ML VIAL IVPUSH ONE (08:00)
[2020-09-01] MEDS: INSULIN SLIDING SCALE (NOVOLOG) 1 VIAL SQ SCH ×4 (09:00→22:00)
[2020-09-01 09:11] LABS: EOS % 2.2 % (0-4.5); HEMATOCRIT 28.5 % (35.4-49); HEMOGLOBIN 9.2 GM/dL (11.7-16.9); LYMPH % 9.7 % (8-40); MCH 24.9 pg (25.7-33.7); MCHC 32.4 g/dl (32.0-35.9); MEAN PLT VOLUME 7.6 fl (7.5-11.1); MONO % 6.7 % (3.8-10.2); NEUT % 80.4 % (42.8-82.8); PLATELET COUNT 324 K/MM3 (134-434); RDW 23.3 % (11.9-15.9); WHITE BLOOD COUNT 10.1 K/mm3 (4.0-10.0)
[2020-09-01 09:24] LABS: CHLORIDE 102 mmol/L (98-107); SODIUM 139 mmol/L (136-145)
[2020-09-01 09:27] LABS: CALCIUM 8.4 mg/dL (8.5-10.1)
[2020-09-01 09:28] LABS: ALBUMIN 2.7 g/dl (3.4-5.0); ANION GAP 7 MMOL/L (8-16); BLOOD UREA NITROGEN 34.8 mg/dL (7-18); CO2 30 mmol/L (21-32); MAGNESIUM 2.2 mg/dL (1.8-2.4)
[2020-09-01 09:31] LABS: CREATININE 5.6 mg/dL (0.55-1.3); PHOSPHOROUS 6.3 mg/dL (2.5-4.9); SGOT/AST 11 U/L (15-37); SGPT/ALT 9 U/L (13-61)
[2020-09-01 09:33] LABS: BILIRUBIN,TOTAL 0.4 mg/dL (0.2-1); TOT PROT 6.5 g/dl (6.4-8.2)
[2020-09-01 09:34] LABS: ALK PHOS 80 U/L (45-117)
[2020-09-01 09:42] LABS: GLUCOSE,RANDOM 38 mg/dL (74-106)
[2020-09-01] MEDS: TORSEMIDE 20 MG TABLET (FP) PO SCH (10:57)
[2020-09-01] MEDS: METHADONE HCL 5 MG TABLET PO SCH ×2 (10:57→21:49)
[2020-09-01] MEDS: NIFEdipine E.R. 90 MG TABLET PO SCH (10:58)
[2020-09-01] MEDS: hydrALAZINE HCL 25 MG TABLET (FP) PO SCH ×2 (10:58→21:49)
[2020-09-01] MEDS: LIDOCAINE 5% TOPICAL PATCH TP SCH (10:58)
[2020-09-01] MEDS: SEVELAMER CARBONATE 800 MG TAB (FP) PO SCH ×2 (13:00→18:10)
[2020-09-01] MEDS: MUPIROCIN 2% TOPICAL OINTMENT FOR DECOLONIZATION NS SCH ×2 (13:38→21:49)
[2020-09-01] MEDS ORDERED: ACETAMINOPHEN 1000 MG/100 ML VIAL (NON FORMULARY) IVPB ONE (18:57)
[2020-09-01] MEDS ORDERED: PT OWN MED DRAWER 7, Y5N ONE (21:47)
[2020-09-01] MEDS: MELATONIN 1 MG TABLET PO SCH (21:49)
[2020-09-01] MEDS: CHLORHEXIDINE GLUCONATE 4% CLEANSER FOR DECOLONIZATION TP SCH (21:49)
[2020-09-01] MEDS: LIDOCAINE PATCH REMOVAL MC SCH (23:02)
[2020-09-01] MEDS: INSULIN (LEVEMIR) 100 UNITS/ML UNITS SQ SCH (23:02)
[2020-09-02] MEDS: VITAMINS A AND D TOPICAL OINTMENT 60 GM TUBE TP SCH ×3 (00:36→18:42)
[2020-09-02] MEDS: SEVELAMER CARBONATE 800 MG TAB (FP) PO SCH ×3 (08:47→18:30)
[2020-09-02] MEDS: METHADONE HCL 5 MG TABLET PO SCH ×2 (09:44→22:20)
[2020-09-02] MEDS: hydrALAZINE HCL 25 MG TABLET (FP) PO SCH ×2 (09:44→22:20)
[2020-09-02] MEDS: TORSEMIDE 20 MG TABLET (FP) PO SCH (09:44)
[2020-09-02] MEDS: LIDOCAINE 5% TOPICAL PATCH TP SCH (09:46)
[2020-09-02] MEDS: oxyCODONE HCL 5 MG TABLET PO PRN ×2 (09:46→16:39)
[2020-09-02] MEDS: NIFEdipine E.R. 90 MG TABLET PO SCH (09:48)
[2020-09-02] MEDS: MUPIROCIN 2% TOPICAL OINTMENT FOR DECOLONIZATION NS SCH (09:51)
[2020-09-02] MEDS ORDERED: VANCOMYCIN/WATER BAGS 1,250 MG/250 ML BAG IVPB ONE (11:14)
[2020-09-02] MEDS: INSULIN SLIDING SCALE (NOVOLOG) 1 VIAL SQ SCH ×3 (12:00→22:20)
[2020-09-02] MEDS ORDERED: PT OWN MED DRAWER 7, Y5N ONE (12:33)
[2020-09-02] MEDS: FENTANYL/BUPIVACAINE/NS/PF - PCEA - 50 ML DISP.SYRIN EP SCH (15:30)
[2020-09-02] MEDS ORDERED: FENTANYL/BUPIVACAINE/NS/PF - PCEA - 50 ML DISP.SYRIN EP SCH (20:42)
[2020-09-02] MEDS ORDERED: NALOXONE HCL 0.4 MG/ML VIAL IVPUSH PRN (20:42)
[2020-09-02] MEDS ORDERED: ALBUTEROL SO4 HFA INHALER IH PRN (20:42)
[2020-09-02] MEDS ORDERED: PROMETHAZINE HCL 25 MG/1 ML VIAL IVPUSH PRN (20:42)
[2020-09-02] MEDS ORDERED: ONDANSETRON 4 MG/2 ML VIAL IVPUSH PRN (20:42)
[2020-09-02] MEDS ORDERED: CHLORHEXIDINE GLUCONATE 4% CLEANSER FOR DECOLONIZATION TP SCH (22:00)
[2020-09-02] MEDS ORDERED: MUPIROCIN 2% TOPICAL OINTMENT FOR DECOLONIZATION NS SCH (22:00)
[2020-09-02] MEDS: INSULIN (LEVEMIR) 100 UNITS/ML UNITS SQ SCH (22:20)
[2020-09-03] MEDS: VITAMINS A AND D TOPICAL OINTMENT 60 GM TUBE TP SCH ×4 (01:08→18:04)
[2020-09-03] MEDS: MELATONIN 1 MG TABLET PO SCH ×2 (01:08→21:31)
[2020-09-03] MEDS: LIDOCAINE PATCH REMOVAL MC SCH ×2 (02:09→21:31)
[2020-09-03] MEDS: INSULIN SLIDING SCALE (NOVOLOG) 1 VIAL SQ SCH ×4 (06:21→21:26)
[2020-09-03 09:31] LABS: BASO % 0.6 % (0-2.0); EOS % 2.9 % (0-4.5); HEMATOCRIT 26.4 % (35.4-49); HEMOGLOBIN 8.6 GM/dL (11.7-16.9); MCH 24.6 pg (25.7-33.7); MCHC 32.7 g/dl (32.0-35.9); MEAN CELL VOLUME 75.2 fl (80-96); MEAN PLT VOLUME 7.3 fl (7.5-11.1); MONO % 6.8 % (3.8-10.2); NEUT % 79.7 % (42.8-82.8); PLATELET COUNT 290 K/MM3 (134-434); RBC 3.51 M/mm3 (4.00-5.60); RDW 22.5 % (11.9-15.9); WHITE BLOOD COUNT 7.7 K/mm3 (4.0-10.0)
[2020-09-03 09:48] LABS: ALBUMIN 2.4 g/dl (3.4-5.0); BLOOD UREA NITROGEN 49.4 mg/dL (7-18)
[2020-09-03 09:49] LABS: MAGNESIUM 2.2 mg/dL (1.8-2.4)
[2020-09-03 09:52] LABS: CREATININE 6.1 mg/dL (0.55-1.3); PHOSPHOROUS 6.5 mg/dL (2.5-4.9)
[2020-09-03 09:53] LABS: BILIRUBIN,TOTAL 0.4 mg/dL (0.2-1); TOT PROT 5.8 g/dl (6.4-8.2)
[2020-09-03] MEDS ORDERED: EPOETIN ALFA-EPBX 20,000 UNIT/ML VIAL SQ ONE (10:15)
[2020-09-03 10:18] LABS: ANISOCYTOSIS 2+; MACROCYTOSIS 0; PLATELET ESTIMATE NORMAL; TARGET CELLS 1+
[2020-09-03] MEDS: SEVELAMER CARBONATE 800 MG TAB (FP) PO SCH ×3 (12:50→18:03)
[2020-09-03] MEDS: NIFEdipine E.R. 90 MG TABLET PO SCH (12:51)
[2020-09-03] MEDS: METHADONE HCL 5 MG TABLET PO SCH ×2 (12:51→21:25)
[2020-09-03] MEDS: TORSEMIDE 20 MG TABLET (FP) PO SCH (12:52)
[2020-09-03] MEDS: hydrALAZINE HCL 25 MG TABLET (FP) PO SCH ×2 (12:52→21:25)
[2020-09-03] MEDS: oxyCODONE HCL 5 MG TABLET PO PRN ×2 (12:56→21:26)
[2020-09-03] MEDS: LIDOCAINE 5% TOPICAL PATCH TP SCH (13:12)
[2020-09-03] MEDS ORDERED: PT OWN MED DRAWER 7, Y5N ONE (14:33)
[2020-09-03] MEDS ORDERED: SODIUM CHLORIDE 250 ML IV PRN (18:01)
[2020-09-03] MEDS ORDERED: INSULIN (NOVOLOG) ASPART 100 UNITS/ML 10ML VIAL ONE (21:12)
[2020-09-03] MEDS: INSULIN (LEVEMIR) 100 UNITS/ML UNITS SQ SCH (21:27)
[2020-09-04] MEDS: VITAMINS A AND D TOPICAL OINTMENT 60 GM TUBE TP SCH ×4 (00:35→17:01)
[2020-09-04] MEDS: INSULIN SLIDING SCALE (NOVOLOG) 1 VIAL SQ SCH ×4 (06:28→21:10)
[2020-09-04 07:35] LABS: BASO % 1.1 % (0-2.0); EOS % 5.5 % (0-4.5); HEMATOCRIT 27.3 % (35.4-49); HEMOGLOBIN 9.1 GM/dL (11.7-16.9); LYMPH % 12.7 % (8-40); MCH 25.4 pg (25.7-33.7); MCHC 33.5 g/dl (32.0-35.9); MEAN PLT VOLUME 7.3 fl (7.5-11.1); MONO % 7.4 % (3.8-10.2); NEUT % 73.3 % (42.8-82.8); PLATELET COUNT 301 K/MM3 (134-434); RBC 3.59 M/mm3 (4.00-5.60); RDW 21.6 % (11.9-15.9); WHITE BLOOD COUNT 6.9 K/mm3 (4.0-10.0)
[2020-09-04 07:51] LABS: ALBUMIN 2.6 g/dl (3.4-5.0); BLOOD UREA NITROGEN 37.2 mg/dL (7-18); CALCIUM 7.9 mg/dL (8.5-10.1)
[2020-09-04 07:54] LABS: CREATININE 5.1 mg/dL (0.55-1.3)
[2020-09-04 07:56] LABS: BILIRUBIN,TOTAL 0.5 mg/dL (0.2-1); TOT PROT 6.5 g/dl (6.4-8.2)
[2020-09-04] MEDS ORDERED: PT OWN MED DRAWER 7, Y5N ONE (09:42)
[2020-09-04] MEDS: SEVELAMER CARBONATE 800 MG TAB (FP) PO SCH ×3 (09:46→17:01)
[2020-09-04] MEDS: oxyCODONE HCL 5 MG TABLET PO PRN ×2 (09:47→21:12)
[2020-09-04] MEDS: TORSEMIDE 20 MG TABLET (FP) PO SCH (09:47)
[2020-09-04] MEDS: hydrALAZINE HCL 25 MG TABLET (FP) PO SCH (09:47)
[2020-09-04] MEDS: METHADONE HCL 5 MG TABLET PO SCH ×2 (09:48→21:09)
[2020-09-04] MEDS: NIFEdipine E.R. 90 MG TABLET PO SCH (09:48)
[2020-09-04] MEDS: LIDOCAINE 5% TOPICAL PATCH TP SCH ×2 (09:49→09:52)
[2020-09-04] MEDS: MELATONIN 1 MG TABLET PO SCH (21:10)
[2020-09-04] MEDS: LIDOCAINE PATCH REMOVAL MC SCH (21:10)
[2020-09-04] MEDS: hydrALAZINE HCL 50 MG TABLET (FP) PO SCH (21:10)
[2020-09-04] MEDS: INSULIN (LEVEMIR) 100 UNITS/ML UNITS SQ SCH (21:10)
[2020-09-05] MEDS: VITAMINS A AND D TOPICAL OINTMENT 60 GM TUBE TP SCH ×4 (02:21→17:51)
[2020-09-05] MEDS: hydrALAZINE HCL 50 MG TABLET (FP) PO SCH ×3 (06:18→22:40)
[2020-09-05] MEDS: INSULIN SLIDING SCALE (NOVOLOG) 1 VIAL SQ SCH ×4 (06:19→23:10)
[2020-09-05 07:14] LABS: BASO % 1.2 % (0-2.0); EOS % 4.3 % (0-4.5); HEMOGLOBIN 8.4 GM/dL (11.7-16.9); LYMPH % 10.6 % (8-40); MCH 24.7 pg (25.7-33.7); MCHC 32.2 g/dl (32.0-35.9); MEAN CELL VOLUME 76.7 fl (80-96); MEAN PLT VOLUME 7.3 fl (7.5-11.1); MONO % 6.8 % (3.8-10.2); NEUT % 77.1 % (42.8-82.8); PLATELET COUNT 323 K/MM3 (134-434); RBC 3.39 M/mm3 (4.00-5.60); WHITE BLOOD COUNT 8.5 K/mm3 (4.0-10.0)
[2020-09-05 07:44] LABS: ALBUMIN 2.6 g/dl (3.4-5.0); CALCIUM 7.8 mg/dL (8.5-10.1); MAGNESIUM 2.3 mg/dL (1.8-2.4)
[2020-09-05 07:45] LABS: BLOOD UREA NITROGEN 46.7 mg/dL (7-18)
[2020-09-05 07:47] LABS: CREATININE 6.3 mg/dL (0.55-1.3)
[2020-09-05 07:49] LABS: BILIRUBIN,TOTAL 0.5 mg/dL (0.2-1); TOT PROT 6.2 g/dl (6.4-8.2)
[2020-09-05] MEDS: NIFEdipine E.R. 90 MG TABLET PO SCH (09:36)
[2020-09-05] MEDS: TORSEMIDE 20 MG TABLET (FP) PO SCH (09:37)
[2020-09-05] MEDS: SEVELAMER CARBONATE 800 MG TAB (FP) PO SCH ×3 (09:37→17:36)
[2020-09-05] MEDS: METHADONE HCL 5 MG TABLET PO SCH ×2 (09:38→22:39)
[2020-09-05] MEDS: LIDOCAINE 5% TOPICAL PATCH TP SCH (09:38)
[2020-09-05] MEDS ORDERED: SODIUM CHLORIDE 250 ML IV PRN (12:05)
[2020-09-05] MEDS: oxyCODONE HCL 5 MG TABLET PO PRN (13:34)
[2020-09-05] MEDS ORDERED: PT OWN MED DRAWER 7, Y5N ONE ×2 (22:32→23:10)
[2020-09-05] MEDS: MELATONIN 1 MG TABLET PO SCH (22:39)
[2020-09-05] MEDS: INSULIN (LEVEMIR) 100 UNITS/ML UNITS SQ SCH (23:10)
[2020-09-06] MEDS: LIDOCAINE PATCH REMOVAL MC SCH (00:42)
[2020-09-06] MEDS: VITAMINS A AND D TOPICAL OINTMENT 60 GM TUBE TP SCH ×3 (00:51→11:29)
[2020-09-06] MEDS: hydrALAZINE HCL 50 MG TABLET (FP) PO SCH ×2 (06:55→13:58)
[2020-09-06] MEDS: INSULIN SLIDING SCALE (NOVOLOG) 1 VIAL SQ SCH ×2 (07:07→09:59)
[2020-09-06] MEDS ORDERED: EPOETIN ALFA-EPBX 20,000 UNIT/ML VIAL IVPUSH ONE (07:15)
[2020-09-06] MEDS ORDERED: DEXTROSE 50%-WATER - 25 GM/50 ML VIAL IVPUSH ONE (07:45)
[2020-09-06] MEDS ORDERED: DEXTROSE 50%-WATER - 25 GM/50 ML VIAL ONE (08:16)
[2020-09-06] MEDS: SEVELAMER CARBONATE 800 MG TAB (FP) PO SCH ×2 (10:00→11:18)
[2020-09-06] MEDS: LIDOCAINE 5% TOPICAL PATCH TP SCH (10:00)
[2020-09-06 10:02] LABS: BASO % 0.9 % (0-2.0); HEMATOCRIT 26.9 % (35.4-49); HEMOGLOBIN 8.7 GM/dL (11.7-16.9); LYMPH % 4.4 % (8-40); MCH 24.5 pg (25.7-33.7); MCHC 32.5 g/dl (32.0-35.9); MEAN CELL VOLUME 75.3 fl (80-96); MEAN PLT VOLUME 6.9 fl (7.5-11.1); MONO % 6.6 % (3.8-10.2); NEUT % 87.1 % (42.8-82.8); PLATELET COUNT 369 K/MM3 (134-434); RBC 3.57 M/mm3 (4.00-5.60); RDW 22.8 % (11.9-15.9); WHITE BLOOD COUNT 11.6 K/mm3 (4.0-10.0)
[2020-09-06 10:27] LABS: CALCIUM 7.9 mg/dL (8.5-10.1)
[2020-09-06 10:28] LABS: ALBUMIN 2.5 g/dl (3.4-5.0); BLOOD UREA NITROGEN 55.6 mg/dL (7-18); MAGNESIUM 2.3 mg/dL (1.8-2.4)
[2020-09-06 10:31] LABS: CREATININE 7.2 mg/dL (0.55-1.3); PHOSPHOROUS 7.5 mg/dL (2.5-4.9)
[2020-09-06 10:32] LABS: BILIRUBIN,TOTAL 0.6 mg/dL (0.2-1); TOT PROT 6.2 g/dl (6.4-8.2)
[2020-09-06 11:08] VITALS: TEMP 98.2
[2020-09-06] MEDS: METHADONE HCL 5 MG TABLET PO SCH (13:58)
[2020-09-06] MEDS: TORSEMIDE 20 MG TABLET (FP) PO SCH (13:58)
[2020-09-06] MEDS: NIFEdipine E.R. 90 MG TABLET PO SCH (13:58)
[2020-09-06 14:03] VITALS: BP 158/60
[2020-09-06 15:20] VITALS: PULSE 79
== END 2020-09-06 17:21 | DRG 163 ==
LOC: JER 13:37 → JERBED 19:53 → JICU 08-24 09:46 → J8W 08-25 17:26 → J2C 08-29 15:22 → JICU 08-30 02:59 → J7W 09-02 20:13
PROVIDERS: ADMIT Internal Medicine; ATTEND Nurse Practitioner Family
PROC: 0BND4ZZ Release Right Middle Lung Lobe, Percutaneous Endoscopic Approach (ICD-10-PCS; 2020-08-29)
PROC: 0WH93YZ Insertion of Other Device into Right Pleural Cavity, Percutaneous Approach (ICD-10-PCS; 2020-08-29)
PROC: 0BJ08ZZ Inspection of Tracheobronchial Tree, Via Natural or Artificial Opening Endoscopic (ICD-10-PCS; 2020-08-29)
PROC: 0WHB3YZ Insertion of Other Device into Left Pleural Cavity, Percutaneous Approach (ICD-10-PCS; 2020-08-29)
PROC: 0BNF4ZZ Release Right Lower Lung Lobe, Percutaneous Endoscopic Approach (ICD-10-PCS; principal; 2020-08-29 12:00)
PROC: 0BNC4ZZ Release Right Upper Lung Lobe, Percutaneous Endoscopic Approach (ICD-10-PCS; 2020-08-29 12:00)
PROC: 5A1D70Z Performance of Urinary Filtration, Intermittent, Less than 6 Hours Per Day (ICD-10-PCS; 2020-09-06)
DX: J96.01 Acute respiratory failure with hypoxia (principal); N18.6 End stage renal disease; I50.33 Acute on chronic diastolic (congestive) heart failure; J94.2 Hemothorax; I13.2 Hypertensive heart and chronic kidney disease with heart failure and with stage 5 chronic kidney disease, or end stage renal disease; J90 Pleural effusion, not elsewhere classified; J98.11 Atelectasis; J43.9 Emphysema, unspecified; E11.65 Type 2 diabetes mellitus with hyperglycemia; Z99.2 Dependence on renal dialysis; I73.9 Peripheral vascular disease, unspecified; D64.9 Anemia, unspecified; K21.9 Gastro-esophageal reflux disease without esophagitis
CPT/HCPCS: 36415; 36600; 71045-TC-FY; 71250-TC; 80053; 80074; 81003; 82150; 82248; 82550; 82553; 82728; 82803; 82962; 83036; 83605; 83615; 83690; 83735; 83880; 84100; 84443; 84484; 85025; 85610; 85730; 86140; 86803; 86850; 86900; 86901; 87040; 87070; 87081; 87086; 87186; 87205; 87340; 87804; 93005; 93010; 94010; 94760; 94761; 99291; C9803; Q5106; U0003; U0005

== ENCOUNTER 2020-10-05 17:38 | Inpatient (IN) | payer OTHER ==
[2020-10-05 18:44] LABS: BASO % 0.7 % (0-2.0); EOS % 4.6 % (0-4.5); HEMATOCRIT 22.3 % (35.4-49); LYMPH % 12.9 % (8-40); MCH 23.8 pg (25.7-33.7); MEAN CELL VOLUME 76.8 fl (80-96); MEAN PLT VOLUME 7.2 fl (7.5-11.1); MONO % 7.4 % (3.8-10.2); NEUT % 74.4 % (42.8-82.8); PLATELET COUNT 381 K/MM3 (134-434); RBC 2.91 M/mm3 (4.00-5.60); RDW 23.9 % (11.9-15.9); WHITE BLOOD COUNT 7.5 K/mm3 (4.0-10.0)
[2020-10-05 18:46] LABS: HEMOGLOBIN 6.9 GM/dL (11.7-16.9)
[2020-10-05 18:51] LABS: INR 1.18 (0.83-1.09); PROTHROMBIN TIME (PATIENT) 14.4 SEC (9.7-13.0)
[2020-10-05 19:00] LABS: CHLORIDE 106 mmol/L (98-107); SODIUM 138 mmol/L (136-145)
[2020-10-05 19:02] LABS: ANION GAP 11 MMOL/L (8-16); CO2 22 mmol/L (21-32)
[2020-10-05 19:03] LABS: ALBUMIN 2.9 g/dl (3.4-5.0); GLUCOSE,RANDOM 225 mg/dL (74-106); MAGNESIUM 2.8 mg/dL (1.8-2.4)
[2020-10-05 19:06] LABS: SGOT/AST 16 U/L (15-37); SGPT/ALT 16 U/L (13-61)
[2020-10-05 19:07] LABS: BILIRUBIN,TOTAL 0.5 mg/dL (0.2-1); TOT PROT 7.4 g/dl (6.4-8.2)
[2020-10-05 19:08] LABS: ALK PHOS 132 U/L (45-117)
[2020-10-05 19:23] LABS: CREATININE 7.7 mg/dL (0.55-1.3); PHOSPHOROUS > 9.0 mg/dL (2.5-4.9)
[2020-10-05 19:34] LABS: N-TERMINAL BNP 146763.2 pg/ml (5-125)
[2020-10-05] MEDS ORDERED: INSULIN REGULAR HUMAN 100 UNITS/ML *VIAL IVPUSH ONE (19:42)
[2020-10-05] MEDS ORDERED: DEXTROSE 50%-WATER - 25 GM/50 ML VIAL IVPUSH ONE (19:42)
[2020-10-05] MEDS ORDERED: DEXTROSE 50%-WATER 25 GM/50 ML DISP.SYRIN ONE (20:05)
[2020-10-05] MEDS ORDERED: SODIUM ZIRCONIUM CYCLOSILICATE (LOKELMA) 5 GM PACKET ONE (20:05)
[2020-10-05 20:14] LABS: ANISOCYTOSIS 3+; MACROCYTOSIS 1+; PLATELET ESTIMATE NORMAL; TARGET CELLS 1+; TEAR DROP CELLS 1+
[2020-10-05] MEDS: SODIUM ZIRCONIUM CYCLOSILICATE (LOKELMA) 5 GM PACKET PO SCH (20:17)
[2020-10-06 02:00] LABS: EPI CELLS 6 /uL (0-25.1); HYALINE CASTS 1 /uL (0-3.1); URINE APPEARANCE CLEAR; URINE BACTERIA 12 /uL (0-1359); URINE BILIRUBIN NEGATIVE (NEGATIVE); URINE COLOR YELLOW; URINE GLUCOSE (UA) NEGATIVE (NEGATIVE); URINE KETONE NEGATIVE (NEGATIVE); URINE LEUK ESTERASE NEGATIVE (NEGATIVE); URINE NITRITE NEGATIVE (NEGATIVE); URINE PROTEIN 2+ (NEGATIVE); URINE RBC 36 /uL (0-23.9); URINE UROBILINOGEN 0.2 mg/dL (0.2-1.0); URINE WBC 18 /uL (0-25.8)
[2020-10-06 04:08] VITALS: BMI 25.2
[2020-10-06] MEDS ORDERED: ALBUTEROL SO4 2.5/IPRATROPIUM 0.5 INH SOL 3 ML VIAL.NEB. NEB PRN (06:59)
[2020-10-06] MEDS ORDERED: ALBUTEROL SO4 HFA INHALER IH PRN (06:59)
[2020-10-06] MEDS: PREGABALIN 25 MG CAPSULE PO SCH ×3 (08:00→22:03)
[2020-10-06] MEDS: hydrALAZINE HCL 50 MG TABLET (FP) PO SCH ×3 (08:00→22:04)
[2020-10-06] MEDS ORDERED: SEVELAMER CARBONATE 800 MG TAB (FP) PO SCH (08:00)
[2020-10-06] MEDS: SEVELAMER CARBONATE 800 MG TAB (FP) PO SCH ×3 (08:01→18:26)
[2020-10-06] MEDS ORDERED: TORSEMIDE 20 MG TABLET (FP) PO SCH (10:00)
[2020-10-06] MEDS: LIDOCAINE 5% TOPICAL PATCH TP SCH (11:27)
[2020-10-06] MEDS: SODIUM ZIRCONIUM CYCLOSILICATE (LOKELMA) 5 GM PACKET PO SCH (11:27)
[2020-10-06] MEDS: NIFEdipine E.R. 90 MG TABLET PO SCH (11:27)
[2020-10-06] MEDS: TORSEMIDE 20 MG TABLET (FP) PO SCH (11:27)
[2020-10-06] MEDS: DIPHENOXYLATE 2.5/ATROPINE.025 1 COMBO TABLET PO SCH (13:09)
[2020-10-06] MEDS ORDERED: SODIUM CHLORIDE 250 ML IV PRN (15:00)
[2020-10-06] MEDS ORDERED: EPOETIN ALFA-EPBX 20,000 UNIT/ML VIAL IVPUSH ONE (15:00)
[2020-10-06 15:07] LABS: BASO % 0.5 % (0-2.0); EOS % 5.3 % (0-4.5); HEMATOCRIT 21.6 % (35.4-49); MCHC 31.5 g/dl (32.0-35.9); MEAN CELL VOLUME 76.5 fl (80-96); MEAN PLT VOLUME 7.4 fl (7.5-11.1); MONO % 8.8 % (3.8-10.2); NEUT % 73.4 % (42.8-82.8); PLATELET COUNT 341 K/MM3 (134-434); RBC 2.82 M/mm3 (4.00-5.60); RDW 23.7 % (11.9-15.9); WHITE BLOOD COUNT 6.9 K/mm3 (4.0-10.0)
[2020-10-06 15:29] LABS: CHLORIDE 106 mmol/L (98-107); SODIUM 139 mmol/L (136-145)
[2020-10-06 15:32] LABS: ALBUMIN 2.8 g/dl (3.4-5.0); ANION GAP 12 MMOL/L (8-16); BLOOD UREA NITROGEN 60.8 mg/dL (7-18); CALCIUM 7.4 mg/dL (8.5-10.1); CO2 22 mmol/L (21-32); GLUCOSE,RANDOM 286 mg/dL (74-106); MAGNESIUM 2.6 mg/dL (1.8-2.4)
[2020-10-06 15:35] LABS: SGOT/AST 12 U/L (15-37); SGPT/ALT 15 U/L (13-61)
[2020-10-06 15:37] LABS: BILIRUBIN,TOTAL 0.4 mg/dL (0.2-1); TOT PROT 6.9 g/dl (6.4-8.2)
[2020-10-06 15:38] LABS: ALK PHOS 126 U/L (45-117)
[2020-10-06 15:39] LABS: CREATININE 8.3 mg/dL (0.55-1.3)
[2020-10-06 15:41] LABS: HEMOGLOBIN 6.8 GM/dL (11.7-16.9)
[2020-10-06] MEDS ORDERED: PT OWN MED DRAWER 7, Y5N ONE (18:21)
[2020-10-06] MEDS: TIOTROPIUM BROMIDE 2.5 MCG (SPIRIVA) RESPIMAT INHALER IH SCH (18:25)
[2020-10-06] MEDS: LIDOCAINE PATCH REMOVAL MC SCH (22:08)
[2020-10-06] MEDS: oxyCODONE HCL 5 MG TABLET PO PRN (22:46)
[2020-10-07] MEDS: hydrALAZINE HCL 50 MG TABLET (FP) PO SCH ×3 (06:04→21:12)
[2020-10-07] MEDS: PREGABALIN 25 MG CAPSULE PO SCH ×3 (06:04→21:12)
[2020-10-07] MEDS: TORSEMIDE 20 MG TABLET (FP) PO SCH (10:36)
[2020-10-07] MEDS: SEVELAMER CARBONATE 800 MG TAB (FP) PO SCH ×3 (10:36→18:08)
[2020-10-07] MEDS: LIDOCAINE 5% TOPICAL PATCH TP SCH (10:36)
[2020-10-07] MEDS: DIPHENOXYLATE 2.5/ATROPINE.025 1 COMBO TABLET PO SCH (10:36)
[2020-10-07] MEDS: NIFEdipine E.R. 90 MG TABLET PO SCH (10:36)
[2020-10-07] MEDS: SODIUM ZIRCONIUM CYCLOSILICATE (LOKELMA) 5 GM PACKET PO SCH ×2 (10:36→10:52)
[2020-10-07] MEDS: TIOTROPIUM BROMIDE 2.5 MCG (SPIRIVA) RESPIMAT INHALER IH SCH (10:36)
[2020-10-07] MEDS: ACETAMINOPHEN 325 MG TABLET (FP) PO PRN (11:32)
[2020-10-07 12:51] LABS: IRON SERUM 25 ug/dL (50-175); TOTAL IRON BINDING CAPACITY 166 ug/dL (250-450)
[2020-10-07] MEDS: oxyCODONE HCL 5 MG TABLET PO PRN ×2 (14:02→21:14)
[2020-10-07] MEDS ORDERED: SODIUM CHLORIDE 250 ML IV PRN (18:50)
[2020-10-07] MEDS: LIDOCAINE PATCH REMOVAL MC SCH (21:12)
[2020-10-08] MEDS: oxyCODONE HCL 5 MG TABLET PO PRN ×2 (05:37→18:08)
[2020-10-08] MEDS: PREGABALIN 25 MG CAPSULE PO SCH ×3 (05:37→21:23)
[2020-10-08] MEDS: hydrALAZINE HCL 50 MG TABLET (FP) PO SCH ×3 (05:37→21:23)
[2020-10-08 07:57] LABS: EOS % 5.7 % (0-4.5); HEMATOCRIT 26.1 % (35.4-49); HEMOGLOBIN 8.2 GM/dL (11.7-16.9); LYMPH % 10.6 % (8-40); MCH 24.8 pg (25.7-33.7); MCHC 31.6 g/dl (32.0-35.9); MEAN CELL VOLUME 78.7 fl (80-96); MEAN PLT VOLUME 7.3 fl (7.5-11.1); NEUT % 72.7 % (42.8-82.8); PLATELET COUNT 291 K/MM3 (134-434); RBC 3.32 M/mm3 (4.00-5.60); RDW 23.1 % (11.9-15.9); WHITE BLOOD COUNT 8.5 K/mm3 (4.0-10.0)
[2020-10-08] MEDS ORDERED: EPOETIN ALFA-EPBX 20,000 UNIT/ML VIAL SQ ONE (08:00)
[2020-10-08 08:06] LABS: ALBUMIN 2.8 g/dl (3.4-5.0); CALCIUM 8.1 mg/dL (8.5-10.1)
[2020-10-08 08:07] LABS: BLOOD UREA NITROGEN 44.5 mg/dL (7-18)
[2020-10-08 08:09] LABS: CREATININE 6.7 mg/dL (0.55-1.3)
[2020-10-08 08:10] LABS: PHOSPHOROUS 7.2 mg/dL (2.5-4.9)
[2020-10-08 08:11] LABS: BILIRUBIN,TOTAL 0.6 mg/dL (0.2-1)
[2020-10-08] MEDS ORDERED: PT OWN MED DRAWER 7, Y5N ONE (09:07)
[2020-10-08] MEDS ORDERED: SODIUM CHLORIDE 250 ML IV PRN (10:37)
[2020-10-08] MEDS ORDERED: IRON SUCROSE INJECTION 100 MG in SODIUM CHLORIDE 95 ML IVPB ONE (10:37)
[2020-10-08] MEDS: LIDOCAINE 5% TOPICAL PATCH TP SCH ×2 (11:17→11:49)
[2020-10-08] MEDS: TORSEMIDE 20 MG TABLET (FP) PO SCH (11:17)
[2020-10-08] MEDS: SEVELAMER CARBONATE 800 MG TAB (FP) PO SCH ×3 (11:19→18:03)
[2020-10-08] MEDS: NIFEdipine E.R. 90 MG TABLET PO SCH (11:19)
[2020-10-08] MEDS: SODIUM ZIRCONIUM CYCLOSILICATE (LOKELMA) 5 GM PACKET PO SCH (11:19)
[2020-10-08] MEDS: DIPHENOXYLATE 2.5/ATROPINE.025 1 COMBO TABLET PO SCH ×3 (11:21→21:24)
[2020-10-08] MEDS: TIOTROPIUM BROMIDE 2.5 MCG (SPIRIVA) RESPIMAT INHALER IH SCH (12:33)
[2020-10-08] MEDS: ACETAMINOPHEN 325 MG TABLET (FP) PO PRN (13:21)
[2020-10-08] MEDS: LIDOCAINE PATCH REMOVAL MC SCH ×2 (21:28)
[2020-10-09] MEDS: hydrALAZINE HCL 50 MG TABLET (FP) PO SCH ×3 (06:18→21:49)
[2020-10-09] MEDS: oxyCODONE HCL 5 MG TABLET PO PRN ×2 (06:18→21:48)
[2020-10-09] MEDS: DIPHENOXYLATE 2.5/ATROPINE.025 1 COMBO TABLET PO SCH ×3 (06:20→21:49)
[2020-10-09] MEDS: PREGABALIN 25 MG CAPSULE PO SCH ×3 (06:20→21:49)
[2020-10-09] MEDS: LIDOCAINE 5% TOPICAL PATCH TP SCH ×2 (09:10)
[2020-10-09] MEDS: SEVELAMER CARBONATE 800 MG TAB (FP) PO SCH ×3 (09:11→17:52)
[2020-10-09] MEDS: TORSEMIDE 20 MG TABLET (FP) PO SCH (09:11)
[2020-10-09] MEDS: NIFEdipine E.R. 90 MG TABLET PO SCH (09:11)
[2020-10-09] MEDS: TIOTROPIUM BROMIDE 2.5 MCG (SPIRIVA) RESPIMAT INHALER IH SCH (10:36)
[2020-10-09] MEDS ORDERED: SODIUM CHLORIDE 250 ML IV PRN (12:19)
[2020-10-09] MEDS: LIDOCAINE PATCH REMOVAL MC SCH ×2 (21:54)
[2020-10-10] MEDS: DIPHENOXYLATE 2.5/ATROPINE.025 1 COMBO TABLET PO SCH ×2 (06:11→15:35)
[2020-10-10] MEDS: PREGABALIN 25 MG CAPSULE PO SCH ×2 (06:11→15:35)
[2020-10-10] MEDS: hydrALAZINE HCL 50 MG TABLET (FP) PO SCH ×2 (06:11→15:35)
[2020-10-10] MEDS: SEVELAMER CARBONATE 800 MG TAB (FP) PO SCH ×3 (10:38→17:25)
[2020-10-10] MEDS: LIDOCAINE 5% TOPICAL PATCH TP SCH ×2 (10:39)
[2020-10-10] MEDS: TORSEMIDE 20 MG TABLET (FP) PO SCH ×2 (10:39→10:58)
[2020-10-10] MEDS: TIOTROPIUM BROMIDE 2.5 MCG (SPIRIVA) RESPIMAT INHALER IH SCH (10:40)
[2020-10-10] MEDS: NIFEdipine E.R. 90 MG TABLET PO SCH (10:40)
[2020-10-10] MEDS: oxyCODONE HCL 5 MG TABLET PO PRN (10:58)
[2020-10-10 13:11] LABS: HEMATOCRIT 25.6 % (35.4-49); MCH 24.5 pg (25.7-33.7); MCHC 31.4 g/dl (32.0-35.9); MEAN CELL VOLUME 78.2 fl (80-96); MEAN PLT VOLUME 7.2 fl (7.5-11.1); PLATELET COUNT 234 10^3/uL (134-434); RBC 3.27 M/mm3 (4.00-5.60); RDW 22.5 % (11.9-15.9); WHITE BLOOD COUNT 6.4 K/mm3 (4.0-10.0)
[2020-10-10 13:30] LABS: BLOOD UREA NITROGEN 29.8 mg/dL (7-18); CALCIUM 8.8 mg/dL (8.5-10.1)
[2020-10-10 13:34] LABS: CREATININE 5.1 mg/dL (0.55-1.3); PHOSPHOROUS 5.8 mg/dL (2.5-4.9)
[2020-10-10 14:59] VITALS: TEMP 98
[2020-10-10 15:32] VITALS: BP 138/76; PULSE 82
== END 2020-10-10 18:57 | DRG 291 ==
LOC: JER 17:38 → JERBED 19:45 → J4W 10-06 00:41
PROVIDERS: ADMIT Internal Medicine; ATTEND Family Medicine
PROC: 30233N1 Transfusion of Nonautologous Red Blood Cells into Peripheral Vein, Percutaneous Approach (ICD-10-PCS; principal; 2020-10-06)
PROC: 5A1D70Z Performance of Urinary Filtration, Intermittent, Less than 6 Hours Per Day (ICD-10-PCS; 2020-10-06)
PROC: 5A1D70Z Performance of Urinary Filtration, Intermittent, Less than 6 Hours Per Day (ICD-10-PCS; 2020-10-08)
PROC: 5A1D70Z Performance of Urinary Filtration, Intermittent, Less than 6 Hours Per Day (ICD-10-PCS; 2020-10-10)
DX: I13.2 Hypertensive heart and chronic kidney disease with heart failure and with stage 5 chronic kidney disease, or end stage renal disease (principal); N18.6 End stage renal disease; I50.32 Chronic diastolic (congestive) heart failure; E78.5 Hyperlipidemia, unspecified; F32.9 Major depressive disorder, single episode, unspecified; J44.9 Chronic obstructive pulmonary disease, unspecified; D63.1 Anemia in chronic kidney disease; E87.5 Hyperkalemia; E83.39 Other disorders of phosphorus metabolism; E83.41 Hypermagnesemia; I44.0 Atrioventricular block, first degree; I45.10 Unspecified right bundle-branch block; I25.10 Atherosclerotic heart disease of native coronary artery without angina pectoris; E11.42 Type 2 diabetes mellitus with diabetic polyneuropathy; K21.9 Gastro-esophageal reflux disease without esophagitis; G89.29 Other chronic pain; R42 Dizziness and giddiness; E11.22 Type 2 diabetes mellitus with diabetic chronic kidney disease; N25.0 Renal osteodystrophy; K52.9 Noninfective gastroenteritis and colitis, unspecified; Z99.2 Dependence on renal dialysis; Z89.512 Acquired absence of left leg below knee; Z91.15 Patient's noncompliance with renal dialysis; Z89.511 Acquired absence of right leg below knee
CPT/HCPCS: 36415; 36430; 71045-TC-FY; 80048; 80053; 81003; 82550; 82553; 82607; 82728; 82746; 83540; 83550; 83735; 83880; 84100; 84439; 84443; 84484; 85025; 85027; 85610; 85730; 86803; 86850; 86900; 86901; 86922; 87340; 93005; 93010; 93970-TC; 93971; 99285-25; C9803; J1756; P9058; U0003; U0005

== ENCOUNTER 2021-05-23 11:03 | Inpatient (IN) | payer OTHER ==
[2021-05-23 14:01] LABS: BASO % 0.6 % (0-2.0); HEMATOCRIT 31.9 % (35.4-49); HEMOGLOBIN 9.8 GM/dL (11.7-16.9); MCH 25.5 pg (25.7-33.7); MCHC 30.8 g/dl (32.0-35.9); MEAN CELL VOLUME 82.9 fl (80-96); MEAN PLT VOLUME 8.6 fl (7.5-11.1); MONO % 9.9 % (3.8-10.2); NEUT % 69.5 % (42.8-82.8); PLATELET COUNT 208 10^3/uL (134-434); RBC 3.84 M/mm3 (4.00-5.60); WHITE BLOOD COUNT 5.6 K/mm3 (4.0-10.0)
[2021-05-23 14:19] LABS: CHLORIDE 106 mmol/L (98-107); SODIUM 137 mmol/L (136-145)
[2021-05-23 14:23] LABS: ALBUMIN 2.9 g/dl (3.4-5.0); ANION GAP 6 MMOL/L (8-16); CALCIUM 8.5 mg/dL (8.5-10.1); CO2 26 mmol/L (21-32); GLUCOSE,RANDOM 173 mg/dL (74-106); MAGNESIUM 2.6 mg/dL (1.8-2.4)
[2021-05-23 14:26] LABS: PHOSPHOROUS 6.2 mg/dL (2.5-4.9); SGOT/AST 16 U/L (15-37); SGPT/ALT 18 U/L (13-61)
[2021-05-23 14:27] LABS: BILIRUBIN,TOTAL 0.4 mg/dL (0.2-1)
[2021-05-23 14:28] LABS: TOT PROT 6.8 g/dl (6.4-8.2)
[2021-05-23 14:29] LABS: ALK PHOS 131 U/L (45-117)
[2021-05-23 14:41] LABS: ANISOCYTOSIS 1+; MACROCYTOSIS 1+; PLATELET ESTIMATE NORMAL
[2021-05-23] MEDS ORDERED: HALOPERIDOL LACTATE 5 MG/ML IM ONE (15:20)
[2021-05-23] MEDS ORDERED: HALOPERIDOL LACTATE 5 MG/ML ONE (15:21)
[2021-05-23 15:23] LABS: INR 1.04 (0.83-1.09)
[2021-05-23 15:26] LABS: ACTIVATED PTT 42.9 SECONDS (25.2-36.5)
[2021-05-23] MEDS ORDERED: ALBUTEROL SO4 HFA INHALER IH PRN (18:52)
[2021-05-23] MEDS ORDERED: GABAPENTIN 100 MG CAPSULE PO SCH (19:00)
[2021-05-23] MEDS ORDERED: NIFEdipine E.R. 30 MG TABLET ONE (19:43)
[2021-05-23] MEDS: NIFEdipine E.R. 90 MG TABLET PO SCH (19:54)
[2021-05-23 20:33] LABS: ARTERIAL BLOOD GAS PO2 55.8 mmHg (80-100); ARTERIAL BLOOD GAS pH 7.213 (7.350-7.450)
[2021-05-23 20:34] LABS: ALLENS TEST POSITIVE
[2021-05-23] MEDS ORDERED: hydrALAZINE HCL 25 MG TABLET (FP) ONE (21:38)
[2021-05-23] MEDS ORDERED: HEPARIN NA (PORCINE) 5,000 UNITS/ML 1ML VIAL SQ SCH ×2 (22:00)
[2021-05-23] MEDS ORDERED: PATIENT'S OWN MEDICATION (NON-FORMULARY) (Sucroferric Oxyhydroxide [Velphoro] 500 MG Tab.C PO SCH (22:00)
[2021-05-23] MEDS ORDERED: PREGABALIN 25 MG CAPSULE PO SCH (22:00)
[2021-05-23] MEDS ORDERED: INSULIN SLIDING SCALE (NOVOLOG) 1 VIAL SQ SCH ×2 (22:00)
[2021-05-23] MEDS: MOMETASONE FUROATE 220 MCG/IH INHALER IH SCH (22:24)
[2021-05-23] MEDS: hydrALAZINE HCL 50 MG TABLET (FP) PO SCH (22:24)
[2021-05-23] MEDS: INSULIN SLIDING SCALE (NOVOLOG) 1 VIAL SQ SCH (22:25)
[2021-05-24] MEDS: INSULIN SLIDING SCALE (NOVOLOG) 1 VIAL SQ SCH ×4 (06:05→22:15)
[2021-05-24] MEDS: INSULIN (LEVEMIR) 100 UNITS/ML UNITS SQ SCH (06:31)
[2021-05-24] MEDS: NIFEdipine E.R. 90 MG TABLET PO SCH (09:36)
[2021-05-24] MEDS: hydrALAZINE HCL 50 MG TABLET (FP) PO SCH ×2 (09:36→22:09)
[2021-05-24 09:41] LABS: EOS % 4.1 % (0-4.5); HEMATOCRIT 33.5 % (35.4-49); HEMOGLOBIN 10.3 GM/dL (11.7-16.9); LYMPH % 11.3 % (8-40); MCH 25.5 pg (25.7-33.7); MCHC 30.8 g/dl (32.0-35.9); MEAN CELL VOLUME 82.9 fl (80-96); MEAN PLT VOLUME 8.3 fl (7.5-11.1); MONO % 12.6 % (3.8-10.2); PLATELET COUNT 178 10^3/uL (134-434); RBC 4.04 M/mm3 (4.00-5.60); RDW 21.8 % (11.9-15.9); WHITE BLOOD COUNT 5.4 K/mm3 (4.0-10.0)
[2021-05-24 10:16] LABS: CALCIUM 8.7 mg/dL (8.5-10.1)
[2021-05-24 10:17] LABS: ALBUMIN 2.7 g/dl (3.4-5.0); BLOOD UREA NITROGEN 34.3 mg/dL (7-18); MAGNESIUM 2.7 mg/dL (1.8-2.4)
[2021-05-24 10:19] LABS: BILIRUBIN,TOTAL 0.4 mg/dL (0.2-1)
[2021-05-24 10:20] LABS: CREATININE 6.1 mg/dL (0.55-1.3); PHOSPHOROUS 8.4 mg/dL (2.5-4.9); TOT PROT 6.4 g/dl (6.4-8.2)
[2021-05-24] MEDS: DOXAZOSIN MESYLATE 4 MG TABLET PO SCH (10:24)
[2021-05-24] MEDS: TORSEMIDE 20 MG TABLET (FP) PO SCH (10:24)
[2021-05-24] MEDS ORDERED: SODIUM CHLORIDE 250 ML IV PRN (11:45)
[2021-05-24] MEDS: SEVELAMER CARBONATE 800 MG TAB (FP) PO SCH ×2 (12:25→18:26)
[2021-05-24 12:32] VITALS: BMI 21.2
[2021-05-24] MEDS ORDERED: ALBUTEROL SO4 2.5/IPRATROPIUM 0.5 INH SOL 3 ML VIAL.NEB. NEB PRN (17:58)
[2021-05-24] MEDS: methylPREDNISolone NA SUCC 40 MG/1 ML VIAL IVPUSH SCH (18:26)
[2021-05-24] MEDS: MOMETASONE FUROATE 220 MCG/IH INHALER IH SCH (22:09)
[2021-05-24] MEDS: BUDESONIDE/FORMETEROL FUMARATE 80/4.5 mcg INHALER IH SCH (22:09)
[2021-05-25] MEDS: methylPREDNISolone NA SUCC 40 MG/1 ML VIAL IVPUSH SCH ×3 (01:47→18:22)
[2021-05-25] MEDS ORDERED: ACETAMINOPHEN 1000 MG/100 ML BAG IVPB ONE (01:59)
[2021-05-25] MEDS: INSULIN (LEVEMIR) 100 UNITS/ML UNITS SQ SCH ×2 (06:07→16:48)
[2021-05-25] MEDS: INSULIN SLIDING SCALE (NOVOLOG) 1 VIAL SQ SCH ×4 (06:07→22:02)
[2021-05-25] MEDS: TORSEMIDE 20 MG TABLET (FP) PO SCH (11:03)
[2021-05-25] MEDS: NIFEdipine E.R. 90 MG TABLET PO SCH (11:04)
[2021-05-25] MEDS: PANTOPRAZOLE 20 MG TABLET PO SCH (11:04)
[2021-05-25] MEDS: DOXAZOSIN MESYLATE 4 MG TABLET PO SCH (11:04)
[2021-05-25] MEDS: SEVELAMER CARBONATE 800 MG TAB (FP) PO SCH ×3 (11:05→18:25)
[2021-05-25] MEDS: BUDESONIDE/FORMETEROL FUMARATE 80/4.5 mcg INHALER IH SCH ×2 (11:05→22:04)
[2021-05-25] MEDS: hydrALAZINE HCL 50 MG TABLET (FP) PO SCH ×2 (11:10→22:02)
[2021-05-25] MEDS ORDERED: SODIUM CHLORIDE 250 ML IV PRN (12:48)
[2021-05-25] MEDS: MOMETASONE FUROATE 220 MCG/IH INHALER IH SCH (22:04)
[2021-05-26] MEDS: methylPREDNISolone NA SUCC 40 MG/1 ML VIAL IVPUSH SCH ×3 (01:30→17:10)
[2021-05-26] MEDS ORDERED: MELATONIN 5 MG TABLETS PO ONE (02:54)
[2021-05-26] MEDS: INSULIN (LEVEMIR) 100 UNITS/ML UNITS SQ SCH (06:05)
[2021-05-26] MEDS: INSULIN SLIDING SCALE (NOVOLOG) 1 VIAL SQ SCH ×4 (06:09→22:16)
[2021-05-26] MEDS: ALBUTEROL SO4 2.5/IPRATROPIUM 0.5 INH SOL 3 ML VIAL.NEB. NEB SCH ×4 (08:40→20:00)
[2021-05-26 10:20] LABS: HEMATOCRIT 29.9 % (35.4-49); HEMOGLOBIN 9.6 GM/dL (11.7-16.9); MCH 25.8 pg (25.7-33.7); MCHC 32.2 g/dl (32.0-35.9); MEAN PLT VOLUME 8.2 fl (7.5-11.1); PLATELET COUNT 200 10^3/uL (134-434); RBC 3.74 M/mm3 (4.00-5.60); RDW 21.6 % (11.9-15.9); WHITE BLOOD COUNT 8.4 K/mm3 (4.0-10.0)
[2021-05-26 10:44] LABS: CALCIUM 9.2 mg/dL (8.5-10.1)
[2021-05-26 10:48] LABS: PHOSPHOROUS 6.8 mg/dL (2.5-4.9)
[2021-05-26 10:49] LABS: CREATININE 6.6 mg/dL (0.55-1.3)
[2021-05-26 10:50] LABS: BLOOD UREA NITROGEN 69.7 mg/dL (7-18)
[2021-05-26] MEDS: SEVELAMER CARBONATE 800 MG TAB (FP) PO SCH ×3 (13:13→17:11)
[2021-05-26] MEDS: DOXAZOSIN MESYLATE 4 MG TABLET PO SCH (13:17)
[2021-05-26] MEDS: TORSEMIDE 20 MG TABLET (FP) PO SCH (13:18)
[2021-05-26] MEDS: BUDESONIDE/FORMETEROL FUMARATE 80/4.5 mcg INHALER IH SCH ×2 (13:18→22:17)
[2021-05-26] MEDS: NIFEdipine E.R. 90 MG TABLET PO SCH (13:18)
[2021-05-26] MEDS: PANTOPRAZOLE 20 MG TABLET PO SCH (13:18)
[2021-05-26] MEDS: hydrALAZINE HCL 50 MG TABLET (FP) PO SCH (13:18)
[2021-05-26] MEDS ORDERED: hydrALAZINE HCL 50 MG TABLET (FP) PO SCH (13:34)
[2021-05-26] MEDS ORDERED: hydrALAZINE HCL 50 MG TABLET (FP) ONE (21:49)
[2021-05-26] MEDS ORDERED: hydrALAZINE HCL 25 MG TABLET (FP) ONE (21:50)
[2021-05-26] MEDS: MOMETASONE FUROATE 220 MCG/IH INHALER IH SCH (22:17)
[2021-05-26] MEDS ORDERED: oxyCODONE HCL 5 MG TABLET PO ONE (23:10)
[2021-05-27] MEDS: methylPREDNISolone NA SUCC 40 MG/1 ML VIAL IVPUSH SCH ×3 (02:18→18:01)
[2021-05-27] MEDS: INSULIN (LEVEMIR) 100 UNITS/ML UNITS SQ SCH ×2 (06:49→21:09)
[2021-05-27] MEDS: INSULIN SLIDING SCALE (NOVOLOG) 1 VIAL SQ SCH ×4 (06:49→21:08)
[2021-05-27] MEDS: SEVELAMER CARBONATE 800 MG TAB (FP) PO SCH ×3 (08:37→18:01)
[2021-05-27] MEDS: ALBUTEROL SO4 2.5/IPRATROPIUM 0.5 INH SOL 3 ML VIAL.NEB. NEB SCH ×4 (08:50→20:55)
[2021-05-27] MEDS ORDERED: hydrALAZINE HCL 25 MG TABLET (FP) ONE ×2 (09:54→20:47)
[2021-05-27] MEDS ORDERED: hydrALAZINE HCL 50 MG TABLET (FP) ONE ×2 (09:54→20:47)
[2021-05-27] MEDS: TORSEMIDE 20 MG TABLET (FP) PO SCH (10:21)
[2021-05-27] MEDS: PANTOPRAZOLE 20 MG TABLET PO SCH (10:22)
[2021-05-27] MEDS: DOXAZOSIN MESYLATE 4 MG TABLET PO SCH (10:22)
[2021-05-27] MEDS: NIFEdipine E.R. 90 MG TABLET PO SCH (10:22)
[2021-05-27] MEDS: BUDESONIDE/FORMETEROL FUMARATE 80/4.5 mcg INHALER IH SCH ×2 (10:23→21:10)
[2021-05-27] MEDS ORDERED: INSULIN (NOVOLOG) ASPART 100 UNITS/ML 10ML VIAL ONE (11:31)
[2021-05-27] MEDS: PREGABALIN 25 MG CAPSULE PO SCH ×2 (12:27→21:02)
[2021-05-27] MEDS: MOMETASONE FUROATE 220 MCG/IH INHALER IH SCH (21:10)
[2021-05-27] MEDS ORDERED: LIDOCAINE 5% TOPICAL PATCH TP ONE (23:32)
[2021-05-28] MEDS: ACETAMINOPHEN 325 MG TABLET (FP) PO PRN ×2 (00:05→22:22)
[2021-05-28] MEDS: methylPREDNISolone NA SUCC 40 MG/1 ML VIAL IVPUSH SCH ×3 (02:35→17:06)
[2021-05-28] MEDS: INSULIN SLIDING SCALE (NOVOLOG) 1 VIAL SQ SCH ×4 (06:42→22:29)
[2021-05-28] MEDS: INSULIN (LEVEMIR) 100 UNITS/ML UNITS SQ SCH ×2 (06:43→22:31)
[2021-05-28] MEDS: ALBUTEROL SO4 2.5/IPRATROPIUM 0.5 INH SOL 3 ML VIAL.NEB. NEB SCH ×4 (07:48→20:30)
[2021-05-28 08:22] LABS: CHLORIDE 98 mmol/L (98-107); SODIUM 134 mmol/L (136-145)
[2021-05-28 08:28] LABS: ANION GAP 9 MMOL/L (8-16); BLOOD UREA NITROGEN 89.8 mg/dL (7-18); CALCIUM 8.7 mg/dL (8.5-10.1); CO2 28 mmol/L (21-32)
[2021-05-28] MEDS ORDERED: hydrALAZINE HCL 25 MG TABLET (FP) ONE ×2 (08:29→21:12)
[2021-05-28] MEDS ORDERED: hydrALAZINE HCL 50 MG TABLET (FP) ONE ×2 (08:29→21:12)
[2021-05-28 08:31] LABS: SGOT/AST 12 U/L (15-37); SGPT/ALT 23 U/L (13-61)
[2021-05-28 08:33] LABS: BILIRUBIN,TOTAL 0.5 mg/dL (0.2-1); TOT PROT 6.7 g/dl (6.4-8.2)
[2021-05-28 08:35] LABS: ALK PHOS 152 U/L (45-117); GLUCOSE,RANDOM 434 mg/dL (74-106)
[2021-05-28] MEDS: SEVELAMER CARBONATE 800 MG TAB (FP) PO SCH ×3 (09:23→17:06)
[2021-05-28] MEDS: PREGABALIN 25 MG CAPSULE PO SCH ×2 (09:24→22:18)
[2021-05-28] MEDS: PANTOPRAZOLE 20 MG TABLET PO SCH (09:24)
[2021-05-28] MEDS: TORSEMIDE 20 MG TABLET (FP) PO SCH (09:24)
[2021-05-28] MEDS: NIFEdipine E.R. 90 MG TABLET PO SCH (09:25)
[2021-05-28] MEDS: DOXAZOSIN MESYLATE 4 MG TABLET PO SCH (09:25)
[2021-05-28] MEDS: BUDESONIDE/FORMETEROL FUMARATE 80/4.5 mcg INHALER IH SCH ×2 (09:26→22:19)
[2021-05-28] MEDS ORDERED: LIDOCAINE PATCH REMOVAL MC ONE (11:00)
[2021-05-28] MEDS: LIDOCAINE 5% TOPICAL PATCH TP SCH (14:38)
[2021-05-28] MEDS ORDERED: INSULIN (NOVOLOG) ASPART 100 UNITS/ML 10ML VIAL ONE (18:16)
[2021-05-28] MEDS ORDERED: LIDOCAINE PATCH REMOVAL MC SCH (22:00)
[2021-05-28] MEDS: MOMETASONE FUROATE 220 MCG/IH INHALER IH SCH (22:21)
[2021-05-29] MEDS: methylPREDNISolone NA SUCC 40 MG/1 ML VIAL IVPUSH SCH (02:18)
[2021-05-29] MEDS: INSULIN (LEVEMIR) 100 UNITS/ML UNITS SQ SCH (06:08)
[2021-05-29] MEDS: INSULIN SLIDING SCALE (NOVOLOG) 1 VIAL SQ SCH ×3 (06:08→16:26)
[2021-05-29] MEDS: ALBUTEROL SO4 2.5/IPRATROPIUM 0.5 INH SOL 3 ML VIAL.NEB. NEB SCH ×2 (07:22→11:45)
[2021-05-29] MEDS ORDERED: INSULIN (LEVEMIR) 100 UNITS/ML UNITS SQ SCH (08:12)
[2021-05-29] MEDS ORDERED: hydrALAZINE HCL 25 MG TABLET (FP) ONE (08:43)
[2021-05-29] MEDS ORDERED: hydrALAZINE HCL 50 MG TABLET (FP) ONE (08:43)
[2021-05-29] MEDS: TORSEMIDE 20 MG TABLET (FP) PO SCH (09:17)
[2021-05-29] MEDS: PREGABALIN 25 MG CAPSULE PO SCH (09:17)
[2021-05-29] MEDS: SEVELAMER CARBONATE 800 MG TAB (FP) PO SCH ×2 (09:17→11:19)
[2021-05-29] MEDS: PANTOPRAZOLE 20 MG TABLET PO SCH (09:17)
[2021-05-29] MEDS: NIFEdipine E.R. 90 MG TABLET PO SCH (09:18)
[2021-05-29] MEDS: DOXAZOSIN MESYLATE 4 MG TABLET PO SCH (09:18)
[2021-05-29] MEDS: LIDOCAINE 5% TOPICAL PATCH TP SCH (09:18)
[2021-05-29] MEDS: BUDESONIDE/FORMETEROL FUMARATE 80/4.5 mcg INHALER IH SCH (09:19)
[2021-05-29] MEDS ORDERED: predniSONE 20 MG TABLET (UD) PO SCH (10:00)
[2021-05-29 10:39] LABS: CHLORIDE 96 mmol/L (98-107); SODIUM 133 mmol/L (136-145)
[2021-05-29 10:43] LABS: ALBUMIN 3.3 g/dl (3.4-5.0); CALCIUM 9.8 mg/dL (8.5-10.1); CO2 26 mmol/L (21-32); GLUCOSE,RANDOM 148 mg/dL (74-106)
[2021-05-29 10:46] LABS: SGOT/AST 15 U/L (15-37); SGPT/ALT 23 U/L (13-61)
[2021-05-29 10:48] LABS: BILIRUBIN,TOTAL 0.6 mg/dL (0.2-1); TOT PROT 7.1 g/dl (6.4-8.2)
[2021-05-29 10:49] LABS: ALK PHOS 162 U/L (45-117)
[2021-05-29 10:56] LABS: ANION GAP 10 MMOL/L (8-16); BLOOD UREA NITROGEN 112.6 mg/dL (7-18); CREATININE 7.9 mg/dL (0.55-1.3)
[2021-05-29 13:33] VITALS: TEMP 98.2
[2021-05-29] MEDS ORDERED: EPOETIN ALFA-EPBX 10,000 UNIT/ML VIAL IVPUSH ONE (14:00)
[2021-05-29] MEDS ORDERED: SODIUM CHLORIDE 250 ML IV PRN (14:00)
[2021-05-29 15:46] VITALS: BP 150/84; PULSE 80
== END 2021-05-29 16:59 | disposition home or self-care (01) | DRG 189 ==
LOC: JER 11:03 → JERBED 16:31 → INTOOBSV 16:31 → UNDOADMOB 16:31 → JERBED 19:43 → J5S 23:18 → OBSVTOIN 05-24 15:22 → J7W 05-24 18:29
PROVIDERS: ADMIT Internal Medicine
PROC: 5A1D70Z Performance of Urinary Filtration, Intermittent, Less than 6 Hours Per Day (ICD-10-PCS; principal; 2021-05-29)
DX: J96.01 Acute respiratory failure with hypoxia (principal); N18.6 End stage renal disease; I13.2 Hypertensive heart and chronic kidney disease with heart failure and with stage 5 chronic kidney disease, or end stage renal disease; J44.1 Chronic obstructive pulmonary disease with (acute) exacerbation; I50.32 Chronic diastolic (congestive) heart failure; J96.02 Acute respiratory failure with hypercapnia; E11.22 Type 2 diabetes mellitus with diabetic chronic kidney disease; Z99.2 Dependence on renal dialysis; E11.69 Type 2 diabetes mellitus with other specified complication; E11.51 Type 2 diabetes mellitus with diabetic peripheral angiopathy without gangrene; D64.9 Anemia, unspecified; E78.5 Hyperlipidemia, unspecified; K21.9 Gastro-esophageal reflux disease without esophagitis; I25.10 Atherosclerotic heart disease of native coronary artery without angina pectoris; E87.70 Fluid overload, unspecified; F17.210 Nicotine dependence, cigarettes, uncomplicated; E87.5 Hyperkalemia
CPT/HCPCS: 36415; 36600; 70450-TC; 71045-TC-FY; 71275-TC; 80048; 80053; 82550; 82803; 82962; 83735; 84100; 84443; 84484; 85025; 85027; 85610; 85730; 86803; 86850; 86900; 86901; 87340; 87804; 87807; 93005; 93010; 94640; 94761; 97116-GP; 97162-GP; 99291; C9803; G0378; J0131; Q5106; Q9967; U0003; U0005

== ENCOUNTER 2022-02-01 12:49 | Inpatient (IN) | payer OTHER ==
[2022-02-01 15:33] LABS: BASO % 0.5 % (0-2.0); EOS % 2.9 % (0-4.5); HEMATOCRIT 35.5 % (35.4-49); HEMOGLOBIN 11.2 GM/dL (11.7-16.9); LYMPH % 9.7 % (8-40); MCH 26.6 pg (25.7-33.7); MCHC 31.4 g/dl (32.0-35.9); MEAN CELL VOLUME 84.7 fl (80-96); MEAN PLT VOLUME 8.6 fl (7.5-11.1); NEUT % 77.9 % (42.8-82.8); PLATELET COUNT 136 10^3/uL (134-434); RDW 24.9 % (11.9-15.9); WHITE BLOOD COUNT 9.6 K/mm3 (4.0-10.0)
[2022-02-01 15:48] LABS: CHLORIDE 103 mmol/L (98-107); SODIUM 137 mmol/L (136-145)
[2022-02-01 15:51] LABS: CALCIUM 7.7 mg/dL (8.5-10.1)
[2022-02-01 15:52] LABS: ALBUMIN 2.6 g/dl (3.4-5.0); ANION GAP 9 MMOL/L (8-16); BLOOD UREA NITROGEN 13.6 mg/dL (7-18); CO2 26 mmol/L (21-32); GLUCOSE,RANDOM 131 mg/dL (74-106); MAGNESIUM 2.4 mg/dL (1.8-2.4)
[2022-02-01 15:54] LABS: CREATININE 3.9 mg/dL (0.55-1.3); SGOT/AST 29 U/L (15-37); SGPT/ALT 38 U/L (13-61)
[2022-02-01 15:56] LABS: BILIRUBIN,TOTAL 0.6 mg/dL (0.2-1); TOT PROT 6.7 g/dl (6.4-8.2)
[2022-02-01 15:57] LABS: INR 1.21 (0.83-1.09); PROTHROMBIN TIME (PATIENT) 13.9 SEC (9.7-13.0)
[2022-02-01 15:58] LABS: ALK PHOS 139 U/L (45-117)
[2022-02-01 16:00] LABS: ACTIVATED PTT 43.7 SECONDS (25.2-36.5)
[2022-02-01] MEDS ORDERED: ASPIRIN 325 MG ENTERIC COATED TABLET (FP) PO ONE (16:04)
[2022-02-01] MEDS ORDERED: ASPIRIN 325 MG ENTERIC COATED TABLET (FP) ONE (16:21)
[2022-02-01] MEDS ORDERED: DIPHENOXYLATE 2.5/ATROPINE.025 1 COMBO TABLET PO PRN (19:12)
[2022-02-01] MEDS ORDERED: ALBUTEROL SO4 HFA INHALER IH PRN (19:12)
[2022-02-01 19:31] LABS: ANISOCYTOSIS 2+; MACROCYTOSIS 2+; OVALOCYTE 2+; TARGET CELLS 2+; TEAR DROP CELLS 2+
[2022-02-01] MEDS: INSULIN SLIDING SCALE (NOVOLOG) 1 VIAL SQ SCH (21:42)
[2022-02-01] MEDS: INSULIN (LEVEMIR) 100 UNITS/ML UNITS SQ SCH (21:44)
[2022-02-01] MEDS: traZODone HCL 50 MG TABLET (FP) PO SCH (21:54)
[2022-02-01] MEDS: PREGABALIN 25 MG CAPSULE PO SCH (21:57)
[2022-02-01] MEDS ORDERED: GABAPENTIN 100 MG CAPSULE PO SCH (22:00)
[2022-02-01] MEDS: FLUTICASONE/SALMETEROL 100 MCG/50 MCG DISKUS IH SCH (22:00)
[2022-02-01] MEDS: hydrALAZINE HCL 10 MG TABLET PO SCH (22:00)
[2022-02-02] MEDS: hydrALAZINE HCL 10 MG TABLET PO SCH (06:17)
[2022-02-02] MEDS: PREGABALIN 25 MG CAPSULE PO SCH ×3 (06:17→21:59)
[2022-02-02] MEDS: INSULIN SLIDING SCALE (NOVOLOG) 1 VIAL SQ SCH ×4 (06:18→21:59)
[2022-02-02 09:18] LABS: CHLORIDE 107 mmol/L (98-107); SODIUM 139 mmol/L (136-145)
[2022-02-02 09:20] LABS: ALBUMIN 2.6 g/dl (3.4-5.0); ANION GAP 13 MMOL/L (8-16); CALCIUM 8.2 mg/dL (8.5-10.1); CO2 19 mmol/L (21-32); GLUCOSE,RANDOM 68 mg/dL (74-106)
[2022-02-02 09:21] LABS: BLOOD UREA NITROGEN 17.9 mg/dL (7-18)
[2022-02-02 09:24] LABS: CREATININE 4.6 mg/dL (0.55-1.3); SGOT/AST 32 U/L (15-37); SGPT/ALT 37 U/L (13-61)
[2022-02-02 09:25] LABS: BILIRUBIN,TOTAL 0.7 mg/dL (0.2-1); TOT PROT 6.8 g/dl (6.4-8.2)
[2022-02-02 09:26] LABS: ALK PHOS 133 U/L (45-117)
[2022-02-02] MEDS ORDERED: DOXAZOSIN MESYLATE 4 MG TABLET PO SCH (10:00)
[2022-02-02] MEDS: FLUTICASONE/SALMETEROL 100 MCG/50 MCG DISKUS IH SCH ×2 (10:54→22:00)
[2022-02-02 15:14] VITALS: BMI 23.2
[2022-02-02] MEDS ORDERED: HEPARIN NA (PORCINE) 5,000 UNITS/ML 1ML VIAL IVPUSH PRN ×2 (17:01)
[2022-02-02] MEDS: HEPARIN SOD,PORK IN 0.45% NACL 25,000 UNIT/500 ML INFUS.BAG IVPB SCH (19:51)
[2022-02-02] MEDS ORDERED: SODIUM CHLORIDE 250 ML IV PRN (21:32)
[2022-02-02] MEDS: INSULIN (LEVEMIR) 100 UNITS/ML UNITS SQ SCH (21:59)
[2022-02-02] MEDS: traZODone HCL 50 MG TABLET (FP) PO SCH (21:59)
[2022-02-03] MEDS: INSULIN SLIDING SCALE (NOVOLOG) 1 VIAL SQ SCH ×4 (06:09→22:32)
[2022-02-03] MEDS: PREGABALIN 25 MG CAPSULE PO SCH ×3 (06:29→22:14)
[2022-02-03 07:52] LABS: HEMATOCRIT 39.2 % (35.4-49); HEMOGLOBIN 11.9 GM/dL (11.7-16.9); MCH 25.9 pg (25.7-33.7); MCHC 30.4 g/dl (32.0-35.9); MEAN CELL VOLUME 85.2 fl (80-96); PLATELET COUNT 159 10^3/uL (134-434); RBC 4.61 M/mm3 (4.00-5.60); RDW 23.9 % (11.9-15.9)
[2022-02-03 08:11] LABS: CALCIUM 8.1 mg/dL (8.5-10.1)
[2022-02-03 08:12] LABS: BLOOD UREA NITROGEN 29.6 mg/dL (7-18)
[2022-02-03 08:15] LABS: CREATININE 5.6 mg/dL (0.55-1.3); PHOSPHOROUS 7.6 mg/dL (2.5-4.9)
[2022-02-03] MEDS: FLUTICASONE/SALMETEROL 100 MCG/50 MCG DISKUS IH SCH ×2 (09:59→22:32)
[2022-02-03 19:00] LABS: ARTERIAL BLD GAS O2 SATURATION 64.7 % (95-98); ARTERIAL BLOOD GAS BASE EXCESS 1.9 mmol/L (-2-2); ARTERIAL BLOOD GAS pH 7.355 (7.350-7.450)
[2022-02-03 19:02] LABS: ALLENS TEST POSITIVE
[2022-02-03 19:07] LABS: ARTERIAL BLOOD GAS PO2 35.6 mmHg (80-100)
[2022-02-03] MEDS: HEPARIN SOD,PORK IN 0.45% NACL 25,000 UNIT/500 ML INFUS.BAG IVPB SCH (19:40)
[2022-02-03] MEDS: traZODone HCL 50 MG TABLET (FP) PO SCH (22:14)
[2022-02-03] MEDS: INSULIN (LEVEMIR) 100 UNITS/ML UNITS SQ SCH (22:18)
[2022-02-04] MEDS: HEPARIN SOD,PORK IN 0.45% NACL 25,000 UNIT/500 ML INFUS.BAG IVPB SCH ×2 (04:28→19:10)
[2022-02-04] MEDS: PREGABALIN 25 MG CAPSULE PO SCH ×3 (05:51→22:09)
[2022-02-04] MEDS: INSULIN SLIDING SCALE (NOVOLOG) 1 VIAL SQ SCH ×4 (06:10→22:08)
[2022-02-04] MEDS ORDERED: GLUCAGON 1 MG KIT IM ONE (06:14)
[2022-02-04 08:31] LABS: HEMATOCRIT 35.1 % (35.4-49); MCH 26.7 pg (25.7-33.7); MCHC 31.4 g/dl (32.0-35.9); MEAN CELL VOLUME 85.1 fl (80-96); MEAN PLT VOLUME 8.4 fl (7.5-11.1); PLATELET COUNT 139 10^3/uL (134-434); RBC 4.12 M/mm3 (4.00-5.60); RDW 24.5 % (11.9-15.9); WHITE BLOOD COUNT 6.1 K/mm3 (4.0-10.0)
[2022-02-04] MEDS: NIFEdipine E.R 60 MG TABLET PO SCH (09:17)
[2022-02-04] MEDS: TORSEMIDE 20 MG TABLET (FP) PO SCH (09:18)
[2022-02-04] MEDS: FLUTICASONE/SALMETEROL 100 MCG/50 MCG DISKUS IH SCH ×2 (09:18→22:08)
[2022-02-04] MEDS: methylPREDNISolone NA SUCC 40 MG/1 ML VIAL IVPUSH SCH ×3 (13:30→22:09)
[2022-02-04] MEDS: hydrALAZINE HCL 10 MG TABLET PO SCH ×2 (14:45→22:10)
[2022-02-04] MEDS: ALBUTEROL SO4 2.5/IPRATROPIUM 0.5 INH SOL 3 ML VIAL.NEB. NEB SCH ×2 (16:35→20:25)
[2022-02-04] MEDS ORDERED: DEXTROSE 50%-WATER 25 GM/50 ML DISP.SYRIN IVPUSH ONE (17:38)
[2022-02-04] MEDS: INSULIN (LEVEMIR) 100 UNITS/ML UNITS SQ SCH (22:08)
[2022-02-04] MEDS: traZODone HCL 50 MG TABLET (FP) PO SCH (22:09)
[2022-02-05] MEDS: methylPREDNISolone NA SUCC 40 MG/1 ML VIAL IVPUSH SCH ×4 (02:27→21:55)
[2022-02-05] MEDS: hydrALAZINE HCL 10 MG TABLET PO SCH ×3 (06:42→21:52)
[2022-02-05] MEDS: INSULIN SLIDING SCALE (NOVOLOG) 1 VIAL SQ SCH ×4 (06:42→22:06)
[2022-02-05] MEDS: PREGABALIN 25 MG CAPSULE PO SCH ×3 (06:42→21:52)
[2022-02-05] MEDS: ALBUTEROL SO4 2.5/IPRATROPIUM 0.5 INH SOL 3 ML VIAL.NEB. NEB SCH ×4 (07:38→20:05)
[2022-02-05 07:55] LABS: HEMATOCRIT 36.4 % (35.4-49); HEMOGLOBIN 11.2 GM/dL (11.7-16.9); MCH 26.2 pg (25.7-33.7); MCHC 30.8 g/dl (32.0-35.9); MEAN CELL VOLUME 84.9 fl (80-96); MEAN PLT VOLUME 8.6 fl (7.5-11.1); PLATELET COUNT 160 10^3/uL (134-434); RBC 4.29 M/mm3 (4.00-5.60); RDW 24.3 % (11.9-15.9); WHITE BLOOD COUNT 10.7 K/mm3 (4.0-10.0)
[2022-02-05] MEDS: TORSEMIDE 20 MG TABLET (FP) PO SCH (09:00)
[2022-02-05] MEDS: NIFEdipine E.R 60 MG TABLET PO SCH (09:01)
[2022-02-05] MEDS: FLUTICASONE/SALMETEROL 100 MCG/50 MCG DISKUS IH SCH ×2 (09:07→22:06)
[2022-02-05 13:34] LABS: CALCIUM 8.4 mg/dL (8.5-10.1)
[2022-02-05 13:35] LABS: BLOOD UREA NITROGEN 37.5 mg/dL (7-18)
[2022-02-05 13:39] LABS: CREATININE 5.2 mg/dL (0.55-1.3)
[2022-02-05] MEDS ORDERED: SODIUM CHLORIDE 250 ML IV PRN ×3 (16:21→19:11)
[2022-02-05] MEDS ORDERED: VANCOMYCIN 1 GM PREMIX - 1 GM/200 ML BAG IVPB ONE (16:30)
[2022-02-05] MEDS: CEFTRIAXONE 1 GM in DEXTROSE 5%-WATER - 50 ML IVPB SCH (17:29)
[2022-02-05] MEDS: ALBUMIN HUMAN 25% 12.5 GM/50 ML VIAL IV SCH ×2 (18:40→18:41)
[2022-02-05] MEDS: traZODone HCL 50 MG TABLET (FP) PO SCH (21:52)
[2022-02-05] MEDS: INSULIN (LEVEMIR) 100 UNITS/ML UNITS SQ SCH (22:04)
[2022-02-06] MEDS: methylPREDNISolone NA SUCC 40 MG/1 ML VIAL IVPUSH SCH ×4 (02:33→21:56)
[2022-02-06] MEDS: hydrALAZINE HCL 10 MG TABLET PO SCH ×3 (06:16→21:56)
[2022-02-06] MEDS: INSULIN SLIDING SCALE (NOVOLOG) 1 VIAL SQ SCH ×4 (06:17→21:54)
[2022-02-06] MEDS: PREGABALIN 25 MG CAPSULE PO SCH ×3 (06:17→21:56)
[2022-02-06] MEDS ORDERED: VANCOMYCIN 1 GM PREMIX - 200 ML IVPB ONE (08:00)
[2022-02-06 08:42] LABS: HEMATOCRIT 34.8 % (35.4-49); HEMOGLOBIN 11.2 GM/dL (11.7-16.9); MCHC 32.2 g/dl (32.0-35.9); MEAN CELL VOLUME 83.9 fl (80-96); MEAN PLT VOLUME 8.3 fl (7.5-11.1); PLATELET COUNT 141 10^3/uL (134-434); RBC 4.15 M/mm3 (4.00-5.60); RDW 24.3 % (11.9-15.9); WHITE BLOOD COUNT 10.3 K/mm3 (4.0-10.0)
[2022-02-06] MEDS: ALBUTEROL SO4 2.5/IPRATROPIUM 0.5 INH SOL 3 ML VIAL.NEB. NEB SCH ×4 (08:50→20:27)
[2022-02-06] MEDS: CEFTRIAXONE 1 GM in DEXTROSE 5%-WATER - 50 ML IVPB SCH (11:01)
[2022-02-06] MEDS: FLUTICASONE/SALMETEROL 100 MCG/50 MCG DISKUS IH SCH ×2 (11:02→22:02)
[2022-02-06] MEDS: TORSEMIDE 20 MG TABLET (FP) PO SCH (11:13)
[2022-02-06 14:28] LABS: HEMATOCRIT 33.5 % (35.4-49); HEMOGLOBIN 10.7 GM/dL (11.7-16.9); MCH 26.9 pg (25.7-33.7); MCHC 31.9 g/dl (32.0-35.9); MEAN CELL VOLUME 84.6 fl (80-96); MEAN PLT VOLUME 8.5 fl (7.5-11.1); PLATELET COUNT 149 10^3/uL (134-434); RBC 3.96 M/mm3 (4.00-5.60); WHITE BLOOD COUNT 9.9 K/mm3 (4.0-10.0)
[2022-02-06 14:49] LABS: BLOOD UREA NITROGEN 44.2 mg/dL (7-18); CALCIUM 8.3 mg/dL (8.5-10.1)
[2022-02-06 14:53] LABS: CREATININE 4.9 mg/dL (0.55-1.3)
[2022-02-06] MEDS ORDERED: VANCOMYCIN/WATER FOR INJ (PEG) 1,000 MG/200 ML BAG IVPB ONE (16:00)
[2022-02-06] MEDS: INSULIN (LEVEMIR) 100 UNITS/ML UNITS SQ SCH (21:55)
[2022-02-06] MEDS: traZODone HCL 50 MG TABLET (FP) PO SCH (21:56)
[2022-02-07] MEDS: methylPREDNISolone NA SUCC 40 MG/1 ML VIAL IVPUSH SCH ×3 (03:00→17:12)
[2022-02-07] MEDS: PREGABALIN 25 MG CAPSULE PO SCH ×3 (06:35→21:38)
[2022-02-07] MEDS: hydrALAZINE HCL 10 MG TABLET PO SCH ×3 (06:35→21:38)
[2022-02-07] MEDS: INSULIN SLIDING SCALE (NOVOLOG) 1 VIAL SQ SCH ×4 (06:42→21:53)
[2022-02-07] MEDS: INSULIN (LEVEMIR) 100 UNITS/ML UNITS SQ SCH (06:59)
[2022-02-07] MEDS: ALBUTEROL SO4 2.5/IPRATROPIUM 0.5 INH SOL 3 ML VIAL.NEB. NEB SCH ×4 (08:10→20:15)
[2022-02-07 08:54] LABS: HEMATOCRIT 36.8 % (35.4-49); HEMOGLOBIN 11.6 GM/dL (11.7-16.9); MCH 26.9 pg (25.7-33.7); MCHC 31.5 g/dl (32.0-35.9); MEAN CELL VOLUME 85.3 fl (80-96); MEAN PLT VOLUME 8.7 fl (7.5-11.1); PLATELET COUNT 153 10^3/uL (134-434); RBC 4.31 M/mm3 (4.00-5.60); RDW 24.2 % (11.9-15.9); WHITE BLOOD COUNT 9.6 K/mm3 (4.0-10.0)
[2022-02-07] MEDS: TORSEMIDE 20 MG TABLET (FP) PO SCH (09:25)
[2022-02-07] MEDS: CEFTRIAXONE 1 GM in DEXTROSE 5%-WATER - 50 ML IVPB SCH (09:25)
[2022-02-07] MEDS: FLUTICASONE/SALMETEROL 100 MCG/50 MCG DISKUS IH SCH ×2 (09:26→21:53)
[2022-02-07] MEDS ORDERED: SODIUM CHLORIDE 250 ML IV PRN (12:23)
[2022-02-07] MEDS ORDERED: EPOETIN ALFA-EPBX 3,000 UNIT/ML VIAL IVPUSH ONE (13:00)
[2022-02-07] MEDS: traZODone HCL 50 MG TABLET (FP) PO SCH (21:38)
[2022-02-08] MEDS: methylPREDNISolone NA SUCC 40 MG/1 ML VIAL IVPUSH SCH ×3 (01:52→17:37)
[2022-02-08] MEDS: INSULIN (LEVEMIR) 100 UNITS/ML UNITS SQ SCH (06:04)
[2022-02-08] MEDS: INSULIN SLIDING SCALE (NOVOLOG) 1 VIAL SQ SCH ×4 (06:10→21:46)
[2022-02-08] MEDS: hydrALAZINE HCL 10 MG TABLET PO SCH ×3 (06:10→21:42)
[2022-02-08] MEDS: PREGABALIN 25 MG CAPSULE PO SCH ×2 (06:10→15:08)
[2022-02-08] MEDS: ALBUTEROL SO4 2.5/IPRATROPIUM 0.5 INH SOL 3 ML VIAL.NEB. NEB SCH ×4 (08:50→21:44)
[2022-02-08] MEDS: FLUTICASONE/SALMETEROL 100 MCG/50 MCG DISKUS IH SCH ×2 (10:22→21:42)
[2022-02-08] MEDS: TORSEMIDE 20 MG TABLET (FP) PO SCH (10:22)
[2022-02-08] MEDS: ASPIRIN COATED 81 MG TABLET.EC PO SCH (10:23)
[2022-02-08] MEDS: METOPROLOL TARTRATE 25 MG TABLET (FP) PO SCH ×3 (10:24→21:42)
[2022-02-08] MEDS: CEFTRIAXONE 1 GM in DEXTROSE 5%-WATER - 50 ML IVPB SCH (10:26)
[2022-02-08] MEDS ORDERED: INSULIN (NOVOLOG) ASPART 100 UNITS/ML 10ML VIAL ONE (11:22)
[2022-02-08] MEDS ORDERED: VANCOMYCIN/WATER FOR INJ (PEG) 1,000 MG/200 ML BAG IVPB ONE (13:00)
[2022-02-08 14:39] LABS: HEMATOCRIT 35.1 % (35.4-49); HEMOGLOBIN 10.8 GM/dL (11.7-16.9); MCH 26.1 pg (25.7-33.7); MCHC 30.8 g/dl (32.0-35.9); MEAN CELL VOLUME 84.7 fl (80-96); MEAN PLT VOLUME 9.1 fl (7.5-11.1); PLATELET COUNT 156 10^3/uL (134-434); RBC 4.14 M/mm3 (4.00-5.60); RDW 23.9 % (11.9-15.9); WHITE BLOOD COUNT 14.1 K/mm3 (4.0-10.0)
[2022-02-08] MEDS ORDERED: EPOETIN ALFA-EPBX 3,000 UNIT/ML VIAL IVPUSH ONE (16:15)
[2022-02-08] MEDS: ATORVASTATIN CA 20 MG TABLET (FP) PO SCH (21:42)
[2022-02-08] MEDS: traZODone HCL 50 MG TABLET (FP) PO SCH (21:42)
[2022-02-09] MEDS: methylPREDNISolone NA SUCC 40 MG/1 ML VIAL IVPUSH SCH ×2 (02:52→10:44)
[2022-02-09] MEDS: hydrALAZINE HCL 10 MG TABLET PO SCH ×3 (06:25→21:21)
[2022-02-09] MEDS: INSULIN SLIDING SCALE (NOVOLOG) 1 VIAL SQ SCH ×4 (06:25→21:23)
[2022-02-09] MEDS: INSULIN (LEVEMIR) 100 UNITS/ML UNITS SQ SCH (06:26)
[2022-02-09] MEDS: ALBUTEROL SO4 2.5/IPRATROPIUM 0.5 INH SOL 3 ML VIAL.NEB. NEB SCH ×3 (07:40→15:16)
[2022-02-09] MEDS ORDERED: cefTRIAXone SODIUM 1 GM VIAL ONE (10:29)
[2022-02-09] MEDS: CEFTRIAXONE 1 GM in DEXTROSE 5%-WATER - 50 ML IVPB SCH (10:40)
[2022-02-09] MEDS: TORSEMIDE 20 MG TABLET (FP) PO SCH (10:43)
[2022-02-09] MEDS: FLUTICASONE/SALMETEROL 100 MCG/50 MCG DISKUS IH SCH ×2 (10:44→21:35)
[2022-02-09] MEDS: METOPROLOL TARTRATE 25 MG TABLET (FP) PO SCH ×2 (10:44→21:21)
[2022-02-09] MEDS: ASPIRIN COATED 81 MG TABLET.EC PO SCH (10:44)
[2022-02-09] MEDS ORDERED: SODIUM CHLORIDE 250 ML IV PRN (20:02)
[2022-02-09] MEDS: ATORVASTATIN CA 20 MG TABLET (FP) PO SCH (21:21)
[2022-02-09] MEDS: traZODone HCL 50 MG TABLET (FP) PO SCH (21:21)
[2022-02-10] MEDS: INSULIN (LEVEMIR) 100 UNITS/ML UNITS SQ SCH ×2 (06:28→21:31)
[2022-02-10] MEDS: hydrALAZINE HCL 10 MG TABLET PO SCH ×3 (06:28→21:23)
[2022-02-10] MEDS: INSULIN SLIDING SCALE (NOVOLOG) 1 VIAL SQ SCH ×4 (06:28→21:32)
[2022-02-10] MEDS: CEFTRIAXONE 1 GM in DEXTROSE 5%-WATER - 50 ML IVPB SCH (09:44)
[2022-02-10] MEDS: FLUTICASONE/SALMETEROL 100 MCG/50 MCG DISKUS IH SCH ×2 (09:44→21:29)
[2022-02-10] MEDS: predniSONE 20 MG TABLET (UD) PO SCH (09:45)
[2022-02-10] MEDS: ASPIRIN COATED 81 MG TABLET.EC PO SCH (09:45)
[2022-02-10] MEDS: METOPROLOL TARTRATE 25 MG TABLET (FP) PO SCH ×2 (09:45→21:23)
[2022-02-10] MEDS: TORSEMIDE 20 MG TABLET (FP) PO SCH (09:45)
[2022-02-10 16:37] LABS: HEMATOCRIT 35.8 % (35.4-49); HEMOGLOBIN 10.9 GM/dL (11.7-16.9); MCH 25.7 pg (25.7-33.7); MCHC 30.5 g/dl (32.0-35.9); MEAN CELL VOLUME 84.3 fl (80-96); MEAN PLT VOLUME 9.6 fl (7.5-11.1); PLATELET COUNT 169 10^3/uL (134-434); RBC 4.25 M/mm3 (4.00-5.60); WHITE BLOOD COUNT 14.4 K/mm3 (4.0-10.0)
[2022-02-10 17:00] LABS: ALBUMIN 2.5 g/dl (3.4-5.0)
[2022-02-10 17:03] LABS: CREATININE 6.1 mg/dL (0.55-1.3); PHOSPHOROUS 6.5 mg/dL (2.5-4.9)
[2022-02-10 17:04] LABS: BILIRUBIN,TOTAL 0.6 mg/dL (0.2-1)
[2022-02-10 17:26] LABS: BLOOD UREA NITROGEN 96.6 mg/dL (7-18)
[2022-02-10] MEDS: traZODone HCL 50 MG TABLET (FP) PO SCH (21:23)
[2022-02-10] MEDS: ATORVASTATIN CA 20 MG TABLET (FP) PO SCH (21:23)
[2022-02-11] MEDS: INSULIN (LEVEMIR) 100 UNITS/ML UNITS SQ SCH ×2 (06:21→21:29)
[2022-02-11] MEDS: hydrALAZINE HCL 10 MG TABLET PO SCH ×3 (06:21→21:27)
[2022-02-11] MEDS: INSULIN SLIDING SCALE (NOVOLOG) 1 VIAL SQ SCH ×4 (06:31→21:30)
[2022-02-11] MEDS: CEFTRIAXONE 1 GM in DEXTROSE 5%-WATER - 50 ML IVPB SCH (10:41)
[2022-02-11] MEDS: METOPROLOL TARTRATE 25 MG TABLET (FP) PO SCH ×2 (10:50→21:27)
[2022-02-11] MEDS: TORSEMIDE 20 MG TABLET (FP) PO SCH (10:50)
[2022-02-11] MEDS: predniSONE 20 MG TABLET (UD) PO SCH (10:50)
[2022-02-11] MEDS: ASPIRIN COATED 81 MG TABLET.EC PO SCH (10:51)
[2022-02-11] MEDS: FLUTICASONE/SALMETEROL 100 MCG/50 MCG DISKUS IH SCH ×2 (10:51→21:32)
[2022-02-11] MEDS: ACETAMINOPHEN 325 MG TABLET (FP) PO PRN (11:32)
[2022-02-11] MEDS ORDERED: SODIUM CHLORIDE 250 ML IV PRN (11:55)
[2022-02-11] MEDS: BISMUTH SUBSALICYLATE 524 MG/30 ML PO PRN (15:24)
[2022-02-11] MEDS: ATORVASTATIN CA 20 MG TABLET (FP) PO SCH (21:27)
[2022-02-11] MEDS: traZODone HCL 50 MG TABLET (FP) PO SCH (21:27)
[2022-02-12] MEDS: hydrALAZINE HCL 10 MG TABLET PO SCH ×3 (06:11→21:47)
[2022-02-12] MEDS: INSULIN (LEVEMIR) 100 UNITS/ML UNITS SQ SCH ×2 (06:48→21:47)
[2022-02-12] MEDS: INSULIN SLIDING SCALE (NOVOLOG) 1 VIAL SQ SCH ×4 (06:48→21:48)
[2022-02-12] MEDS: ASPIRIN COATED 81 MG TABLET.EC PO SCH (10:39)
[2022-02-12] MEDS: ACETAMINOPHEN 325 MG TABLET (FP) PO PRN (10:39)
[2022-02-12] MEDS: TORSEMIDE 20 MG TABLET (FP) PO SCH (10:40)
[2022-02-12] MEDS: METOPROLOL TARTRATE 25 MG TABLET (FP) PO SCH ×2 (10:40→21:47)
[2022-02-12] MEDS: CEFTRIAXONE 1 GM in DEXTROSE 5%-WATER - 50 ML IVPB SCH (10:40)
[2022-02-12] MEDS: FLUTICASONE/SALMETEROL 100 MCG/50 MCG DISKUS IH SCH ×2 (10:40→21:48)
[2022-02-12] MEDS: BISMUTH SUBSALICYLATE 524 MG/30 ML PO PRN (11:00)
[2022-02-12] MEDS: methylPREDNISolone NA SUCC 40 MG/1 ML VIAL IVPUSH SCH ×2 (14:24→18:26)
[2022-02-12] MEDS: ALBUTEROL SO4 2.5/IPRATROPIUM 0.5 INH SOL 3 ML VIAL.NEB. NEB SCH (20:46)
[2022-02-12] MEDS: ATORVASTATIN CA 20 MG TABLET (FP) PO SCH (21:47)
[2022-02-12] MEDS: traZODone HCL 50 MG TABLET (FP) PO SCH (21:47)
[2022-02-13] MEDS: methylPREDNISolone NA SUCC 40 MG/1 ML VIAL IVPUSH SCH ×3 (02:00→18:21)
[2022-02-13] MEDS: hydrALAZINE HCL 10 MG TABLET PO SCH ×3 (06:01→21:59)
[2022-02-13] MEDS: INSULIN (LEVEMIR) 100 UNITS/ML UNITS SQ SCH ×2 (06:01→22:03)
[2022-02-13] MEDS: INSULIN SLIDING SCALE (NOVOLOG) 1 VIAL SQ SCH ×4 (06:02→22:03)
[2022-02-13] MEDS: ALBUTEROL SO4 2.5/IPRATROPIUM 0.5 INH SOL 3 ML VIAL.NEB. NEB SCH ×4 (07:55→19:45)
[2022-02-13] MEDS: TORSEMIDE 20 MG TABLET (FP) PO SCH (10:09)
[2022-02-13] MEDS: METOPROLOL TARTRATE 25 MG TABLET (FP) PO SCH ×2 (10:09→21:59)
[2022-02-13] MEDS: ASPIRIN COATED 81 MG TABLET.EC PO SCH (10:10)
[2022-02-13] MEDS: FLUTICASONE/SALMETEROL 100 MCG/50 MCG DISKUS IH SCH ×2 (10:10→22:03)
[2022-02-13] MEDS ORDERED: SODIUM CHLORIDE 250 ML IV PRN (15:08)
[2022-02-13 15:20] LABS: HEMATOCRIT 33.2 % (35.4-49); HEMOGLOBIN 10.6 GM/dL (11.7-16.9); MCH 26.9 pg (25.7-33.7); MEAN CELL VOLUME 83.9 fl (80-96); MEAN PLT VOLUME 9.2 fl (7.5-11.1); PLATELET COUNT 241 10^3/uL (134-434); RBC 3.96 M/mm3 (4.00-5.60); RDW 22.3 % (11.9-15.9); WHITE BLOOD COUNT 14.1 K/mm3 (4.0-10.0)
[2022-02-13 15:56] LABS: ANISOCYTOSIS 0; MACROCYTOSIS 0; TARGET CELLS 2+
[2022-02-13] MEDS: ALBUMIN HUMAN 25% 12.5 GM/50 ML VIAL IV SCH ×2 (18:44→18:45)
[2022-02-13] MEDS: traZODone HCL 50 MG TABLET (FP) PO SCH (21:59)
[2022-02-13] MEDS: ATORVASTATIN CA 20 MG TABLET (FP) PO SCH (21:59)
[2022-02-14] MEDS: VANCOMYCIN 250 MG/5 ML ORAL SOLUTION PO SCH ×4 (01:12→17:48)
[2022-02-14] MEDS: methylPREDNISolone NA SUCC 40 MG/1 ML VIAL IVPUSH SCH ×3 (01:39→21:33)
[2022-02-14] MEDS: INSULIN (LEVEMIR) 100 UNITS/ML UNITS SQ SCH ×2 (06:26→21:33)
[2022-02-14] MEDS: hydrALAZINE HCL 10 MG TABLET PO SCH (06:26)
[2022-02-14] MEDS: INSULIN SLIDING SCALE (NOVOLOG) 1 VIAL SQ SCH ×4 (06:27→21:33)
[2022-02-14] MEDS: ALBUTEROL SO4 2.5/IPRATROPIUM 0.5 INH SOL 3 ML VIAL.NEB. NEB SCH ×4 (07:37→20:15)
[2022-02-14] MEDS: ASPIRIN COATED 81 MG TABLET.EC PO SCH (09:33)
[2022-02-14] MEDS: TORSEMIDE 20 MG TABLET (FP) PO SCH (09:33)
[2022-02-14] MEDS: METOPROLOL TARTRATE 25 MG TABLET (FP) PO SCH ×2 (09:34→21:32)
[2022-02-14] MEDS: FLUTICASONE/SALMETEROL 100 MCG/50 MCG DISKUS IH SCH ×2 (09:34→21:34)
[2022-02-14] MEDS ORDERED: SODIUM CHLORIDE 250 ML IV PRN (12:03)
[2022-02-14] MEDS: traZODone HCL 50 MG TABLET (FP) PO SCH (21:32)
[2022-02-14] MEDS: ATORVASTATIN CA 20 MG TABLET (FP) PO SCH (21:32)
[2022-02-15] MEDS: VANCOMYCIN 250 MG/5 ML ORAL SOLUTION PO SCH ×4 (00:30→18:37)
[2022-02-15] MEDS: INSULIN SLIDING SCALE (NOVOLOG) 1 VIAL SQ SCH ×4 (06:37→22:34)
[2022-02-15] MEDS: INSULIN (LEVEMIR) 100 UNITS/ML UNITS SQ SCH ×2 (06:38→22:35)
[2022-02-15] MEDS: ALBUTEROL SO4 2.5/IPRATROPIUM 0.5 INH SOL 3 ML VIAL.NEB. NEB SCH ×4 (07:30→20:31)
[2022-02-15] MEDS: METOPROLOL TARTRATE 25 MG TABLET (FP) PO SCH ×2 (10:00→22:30)
[2022-02-15] MEDS: TORSEMIDE 20 MG TABLET (FP) PO SCH (10:00)
[2022-02-15] MEDS: predniSONE 20 MG TABLET (UD) PO SCH ×2 (11:07→22:29)
[2022-02-15] MEDS: FLUTICASONE/SALMETEROL 100 MCG/50 MCG DISKUS IH SCH ×2 (11:07→22:31)
[2022-02-15] MEDS: ASPIRIN COATED 81 MG TABLET.EC PO SCH (11:07)
[2022-02-15 15:30] LABS: HEMATOCRIT 31.3 % (35.4-49); HEMOGLOBIN 9.9 GM/dL (11.7-16.9); MCH 27.1 pg (25.7-33.7); MCHC 31.7 g/dl (32.0-35.9); MEAN CELL VOLUME 85.3 fl (80-96); PLATELET COUNT 250 10^3/uL (134-434); RBC 3.67 M/mm3 (4.00-5.60); RDW 22.2 % (11.9-15.9); WHITE BLOOD COUNT 13.2 K/mm3 (4.0-10.0)
[2022-02-15 16:01] LABS: CALCIUM 8.5 mg/dL (8.5-10.1)
[2022-02-15 16:02] LABS: ALBUMIN 2.7 g/dl (3.4-5.0); BLOOD UREA NITROGEN 80.4 mg/dL (7-18)
[2022-02-15 16:05] LABS: PHOSPHOROUS 6.8 mg/dL (2.5-4.9)
[2022-02-15 16:06] LABS: TOT PROT 6.2 g/dl (6.4-8.2)
[2022-02-15 16:07] LABS: BILIRUBIN,TOTAL 0.4 mg/dL (0.2-1)
[2022-02-15] MEDS: ATORVASTATIN CA 20 MG TABLET (FP) PO SCH (22:30)
[2022-02-15] MEDS: traZODone HCL 50 MG TABLET (FP) PO SCH (22:31)
[2022-02-16] MEDS: VANCOMYCIN 250 MG/5 ML ORAL SOLUTION PO SCH ×4 (00:03→17:27)
[2022-02-16] MEDS: INSULIN (LEVEMIR) 100 UNITS/ML UNITS SQ SCH ×2 (06:35→21:38)
[2022-02-16] MEDS: INSULIN SLIDING SCALE (NOVOLOG) 1 VIAL SQ SCH ×4 (06:36→21:39)
[2022-02-16] MEDS: ALBUTEROL SO4 2.5/IPRATROPIUM 0.5 INH SOL 3 ML VIAL.NEB. NEB SCH ×4 (07:52→20:23)
[2022-02-16] MEDS: METOPROLOL TARTRATE 25 MG TABLET (FP) PO SCH ×2 (10:03→21:37)
[2022-02-16] MEDS: predniSONE 20 MG TABLET (UD) PO SCH ×2 (10:03→21:37)
[2022-02-16] MEDS: TORSEMIDE 20 MG TABLET (FP) PO SCH (10:03)
[2022-02-16] MEDS: ASPIRIN COATED 81 MG TABLET.EC PO SCH (10:03)
[2022-02-16] MEDS: FLUTICASONE/SALMETEROL 100 MCG/50 MCG DISKUS IH SCH ×2 (10:04→21:37)
[2022-02-16] MEDS ORDERED: SODIUM CHLORIDE 250 ML IV PRN ×2 (12:08→12:09)
[2022-02-16] MEDS: ATORVASTATIN CA 20 MG TABLET (FP) PO SCH (21:37)
[2022-02-16] MEDS: traZODone HCL 50 MG TABLET (FP) PO SCH (21:38)
[2022-02-17] MEDS: VANCOMYCIN 250 MG/5 ML ORAL SOLUTION PO SCH ×4 (00:42→17:06)
[2022-02-17] MEDS: INSULIN (LEVEMIR) 100 UNITS/ML UNITS SQ SCH ×2 (06:13→23:47)
[2022-02-17] MEDS: INSULIN SLIDING SCALE (NOVOLOG) 1 VIAL SQ SCH ×4 (06:13→23:48)
[2022-02-17] MEDS ORDERED: EPOETIN ALFA-EPBX 4,000 UNIT/ML VIAL IVPUSH ONE (08:00)
[2022-02-17] MEDS: ALBUMIN HUMAN 25% 12.5 GM/50 ML VIAL IV SCH ×4 (08:00→09:30)
[2022-02-17] MEDS: ALBUTEROL SO4 2.5/IPRATROPIUM 0.5 INH SOL 3 ML VIAL.NEB. NEB SCH ×2 (08:10→11:40)
[2022-02-17] MEDS: predniSONE 20 MG TABLET (UD) PO SCH ×2 (09:44→22:40)
[2022-02-17] MEDS: ASPIRIN COATED 81 MG TABLET.EC PO SCH (09:44)
[2022-02-17] MEDS: FLUTICASONE/SALMETEROL 100 MCG/50 MCG DISKUS IH SCH ×2 (09:44→22:22)
[2022-02-17] MEDS: METOPROLOL TARTRATE 25 MG TABLET (FP) PO SCH ×2 (09:45→22:39)
[2022-02-17] MEDS: TORSEMIDE 20 MG TABLET (FP) PO SCH (09:45)
[2022-02-17 11:10] LABS: HEMATOCRIT 30.1 % (35.4-49); HEMOGLOBIN 9.4 GM/dL (11.7-16.9); MCH 26.4 pg (25.7-33.7); MCHC 31.2 g/dl (32.0-35.9); MEAN CELL VOLUME 84.4 fl (80-96); MEAN PLT VOLUME 8.9 fl (7.5-11.1); PLATELET COUNT 262 10^3/uL (134-434); RBC 3.57 M/mm3 (4.00-5.60); RDW 21.9 % (11.9-15.9); WHITE BLOOD COUNT 11.9 K/mm3 (4.0-10.0)
[2022-02-17 11:19] LABS: CALCIUM 7.8 mg/dL (8.5-10.1)
[2022-02-17 11:20] LABS: BLOOD UREA NITROGEN 84.7 mg/dL (7-18)
[2022-02-17 11:23] LABS: CREATININE 6.2 mg/dL (0.55-1.3)
[2022-02-17] MEDS: traZODone HCL 50 MG TABLET (FP) PO SCH (22:39)
[2022-02-17] MEDS: ATORVASTATIN CA 20 MG TABLET (FP) PO SCH (22:40)
[2022-02-18] MEDS: VANCOMYCIN 250 MG/5 ML ORAL SOLUTION PO SCH ×5 (00:21→23:29)
[2022-02-18] MEDS ORDERED: INSULIN (NOVOLOG) ASPART 100 UNITS/ML 10ML VIAL SQ ONE (02:06)
[2022-02-18] MEDS: INSULIN (LEVEMIR) 100 UNITS/ML UNITS SQ SCH ×2 (07:10→22:49)
[2022-02-18] MEDS: INSULIN SLIDING SCALE (NOVOLOG) 1 VIAL SQ SCH ×4 (07:10→22:51)
[2022-02-18] MEDS: ASPIRIN COATED 81 MG TABLET.EC PO SCH (10:49)
[2022-02-18] MEDS: predniSONE 20 MG TABLET (UD) PO SCH ×2 (10:49→22:49)
[2022-02-18] MEDS: FLUTICASONE/SALMETEROL 100 MCG/50 MCG DISKUS IH SCH ×2 (10:50→22:03)
[2022-02-18] MEDS: TORSEMIDE 20 MG TABLET (FP) PO SCH (10:50)
[2022-02-18] MEDS: METOPROLOL TARTRATE 25 MG TABLET (FP) PO SCH ×2 (10:50→22:49)
[2022-02-18] MEDS: traZODone HCL 50 MG TABLET (FP) PO SCH (22:47)
[2022-02-18] MEDS: ATORVASTATIN CA 20 MG TABLET (FP) PO SCH (22:49)
[2022-02-19] MEDS: VANCOMYCIN 250 MG/5 ML ORAL SOLUTION PO SCH ×3 (05:38→17:20)
[2022-02-19] MEDS: INSULIN SLIDING SCALE (NOVOLOG) 1 VIAL SQ SCH ×4 (07:30→21:54)
[2022-02-19] MEDS: INSULIN (LEVEMIR) 100 UNITS/ML UNITS SQ SCH ×2 (07:30→21:55)
[2022-02-19] MEDS: ASPIRIN COATED 81 MG TABLET.EC PO SCH (09:38)
[2022-02-19] MEDS: TORSEMIDE 20 MG TABLET (FP) PO SCH (09:38)
[2022-02-19] MEDS: predniSONE 20 MG TABLET (UD) PO SCH ×2 (09:38→21:53)
[2022-02-19] MEDS: METOPROLOL TARTRATE 25 MG TABLET (FP) PO SCH ×2 (09:39→21:51)
[2022-02-19] MEDS: FLUTICASONE/SALMETEROL 100 MCG/50 MCG DISKUS IH SCH ×2 (09:39→22:00)
[2022-02-19] MEDS: traZODone HCL 50 MG TABLET (FP) PO SCH (21:52)
[2022-02-19] MEDS: ATORVASTATIN CA 20 MG TABLET (FP) PO SCH (21:53)
[2022-02-20] MEDS: VANCOMYCIN 250 MG/5 ML ORAL SOLUTION PO SCH ×4 (00:05→17:38)
[2022-02-20] MEDS: INSULIN (LEVEMIR) 100 UNITS/ML UNITS SQ SCH ×2 (06:09→21:43)
[2022-02-20] MEDS: INSULIN SLIDING SCALE (NOVOLOG) 1 VIAL SQ SCH ×4 (06:09→21:43)
[2022-02-20] MEDS ORDERED: SODIUM CHLORIDE 250 ML IV PRN (07:33)
[2022-02-20] MEDS: ALBUMIN HUMAN 25% 12.5 GM/50 ML VIAL IV SCH ×4 (10:00→11:30)
[2022-02-20] MEDS ORDERED: EPOETIN ALFA-EPBX 10,000 UNIT/ML VIAL IVPUSH ONE (10:00)
[2022-02-20 10:29] LABS: HEMATOCRIT 29.8 % (35.4-49); HEMOGLOBIN 9.7 GM/dL (11.7-16.9); MCH 27.9 pg (25.7-33.7); MCHC 32.7 g/dl (32.0-35.9); MEAN CELL VOLUME 85.3 fl (80-96); PLATELET COUNT 271 10^3/uL (134-434); RBC 3.49 M/mm3 (4.00-5.60); RDW 22.3 % (11.9-15.9); WHITE BLOOD COUNT 10.4 K/mm3 (4.0-10.0)
[2022-02-20 10:47] LABS: CHLORIDE 99 mmol/L (98-107); SODIUM 138 mmol/L (136-145)
[2022-02-20 10:58] LABS: GLUCOSE,RANDOM 246 mg/dL (74-106)
[2022-02-20 11:00] LABS: BLOOD UREA NITROGEN 95.2 mg/dL (7-18)
[2022-02-20 11:01] LABS: CREATININE 7.2 mg/dL (0.55-1.3)
[2022-02-20 11:04] LABS: CALCIUM 8.5 mg/dL (8.5-10.1)
[2022-02-20 11:05] LABS: ANION GAP 14 MMOL/L (8-16); CO2 25 mmol/L (21-32)
[2022-02-20 11:20] LABS: PHOSPHOROUS 10.1 mg/dL (2.5-4.9)
[2022-02-20] MEDS: predniSONE 20 MG TABLET (UD) PO SCH ×2 (13:08→21:44)
[2022-02-20] MEDS: ASPIRIN COATED 81 MG TABLET.EC PO SCH (13:08)
[2022-02-20] MEDS: TORSEMIDE 20 MG TABLET (FP) PO SCH (13:08)
[2022-02-20] MEDS: METOPROLOL TARTRATE 25 MG TABLET (FP) PO SCH ×2 (13:14→21:44)
[2022-02-20] MEDS: FLUTICASONE/SALMETEROL 100 MCG/50 MCG DISKUS IH SCH ×2 (13:14→22:35)
[2022-02-20] MEDS: traZODone HCL 50 MG TABLET (FP) PO SCH (21:44)
[2022-02-20] MEDS: ATORVASTATIN CA 20 MG TABLET (FP) PO SCH (21:45)
[2022-02-21 05:39] VITALS: TEMP 97.3
[2022-02-21] MEDS: INSULIN (LEVEMIR) 100 UNITS/ML UNITS SQ SCH (06:15)
[2022-02-21] MEDS: INSULIN SLIDING SCALE (NOVOLOG) 1 VIAL SQ SCH (06:16)
[2022-02-21] MEDS ORDERED: ACETAMINOPHEN 325 MG TABLET (FP) PO PRN (07:26)
[2022-02-21] MEDS ORDERED: BISMUTH SUBSALICYLATE 524 MG/30 ML PO PRN (07:26)
[2022-02-21] MEDS ORDERED: ALBUTEROL SO4 HFA INHALER IH PRN (07:26)
[2022-02-21] MEDS: CALCIUM ACETATE 667 MG CAPSULE (FP) PO SCH ×2 (09:01→12:24)
[2022-02-21] MEDS ORDERED: METOPROLOL TARTRATE 50 MG TABLET (FP) PO SCH (10:00)
[2022-02-21] MEDS ORDERED: predniSONE 20 MG TABLET (UD) PO SCH (10:00)
[2022-02-21] MEDS ORDERED: TORSEMIDE 20 MG TABLET (FP) PO SCH (10:00)
[2022-02-21] MEDS ORDERED: ASPIRIN COATED 81 MG TABLET.EC PO SCH (10:00)
[2022-02-21] MEDS ORDERED: FLUTICASONE/SALMETEROL 100 MCG/50 MCG DISKUS IH SCH (10:00)
[2022-02-21] MEDS ORDERED: INSULIN SLIDING SCALE (NOVOLOG) 1 VIAL SQ SCH (11:00)
[2022-02-21 13:47] VITALS: BP 143/69; PULSE 75; RESP 18
[2022-02-21] MEDS ORDERED: traZODone HCL 50 MG TABLET (FP) PO SCH (22:00)
[2022-02-21] MEDS ORDERED: ATORVASTATIN CA 20 MG TABLET (FP) PO SCH (22:00)
[2022-02-21] MEDS ORDERED: INSULIN (LEVEMIR) 100 UNITS/ML UNITS SQ SCH (22:00)
[2022-02-22] MEDS ORDERED: INSULIN (LEVEMIR) 100 UNITS/ML UNITS SQ SCH (07:00)
== END 2022-02-21 13:52 | DRG 189 ==
LOC: JER 12:49 → JERBED 16:13 → INTOOBSV 16:13 → J4W 18:00 → OBSVTOIN 02-05 10:53
PROVIDERS: ADMIT Family Medicine; ATTEND Family Medicine
PROC: 5A1D70Z Performance of Urinary Filtration, Intermittent, Less than 6 Hours Per Day (ICD-10-PCS; principal; 2022-02-03)
PROC: 5A1D70Z Performance of Urinary Filtration, Intermittent, Less than 6 Hours Per Day (ICD-10-PCS; 2022-02-05)
PROC: 5A1D70Z Performance of Urinary Filtration, Intermittent, Less than 6 Hours Per Day (ICD-10-PCS; 2022-02-06)
PROC: 5A1D70Z Performance of Urinary Filtration, Intermittent, Less than 6 Hours Per Day (ICD-10-PCS; 2022-02-08)
PROC: 5A1D70Z Performance of Urinary Filtration, Intermittent, Less than 6 Hours Per Day (ICD-10-PCS; 2022-02-10)
PROC: 5A1D70Z Performance of Urinary Filtration, Intermittent, Less than 6 Hours Per Day (ICD-10-PCS; 2022-02-12)
PROC: 5A1D70Z Performance of Urinary Filtration, Intermittent, Less than 6 Hours Per Day (ICD-10-PCS; 2022-02-13)
PROC: 5A1D70Z Performance of Urinary Filtration, Intermittent, Less than 6 Hours Per Day (ICD-10-PCS; 2022-02-15)
PROC: 5A1D70Z Performance of Urinary Filtration, Intermittent, Less than 6 Hours Per Day (ICD-10-PCS; 2022-02-17)
PROC: 5A1D70Z Performance of Urinary Filtration, Intermittent, Less than 6 Hours Per Day (ICD-10-PCS; 2022-02-20)
DX: J96.01 Acute respiratory failure with hypoxia (principal); G93.41 Metabolic encephalopathy; N18.6 End stage renal disease; J18.9 Pneumonia, unspecified organism; J44.1 Chronic obstructive pulmonary disease with (acute) exacerbation; I13.2 Hypertensive heart and chronic kidney disease with heart failure and with stage 5 chronic kidney disease, or end stage renal disease; I50.32 Chronic diastolic (congestive) heart failure; I31.39 Other pericardial effusion (noninflammatory); J98.11 Atelectasis; J90 Pleural effusion, not elsewhere classified; A04.72 Enterocolitis due to Clostridium difficile, not specified as recurrent; I47.1 Supraventricular tachycardia; J96.02 Acute respiratory failure with hypercapnia; I25.10 Atherosclerotic heart disease of native coronary artery without angina pectoris; K21.9 Gastro-esophageal reflux disease without esophagitis; E78.5 Hyperlipidemia, unspecified; G89.29 Other chronic pain; I27.20 Pulmonary hypertension, unspecified; E86.0 Dehydration; I44.0 Atrioventricular block, first degree; I95.9 Hypotension, unspecified; D64.9 Anemia, unspecified; R77.8 Other specified abnormalities of plasma proteins; E83.39 Other disorders of phosphorus metabolism; F32.A Depression, unspecified; E11.22 Type 2 diabetes mellitus with diabetic chronic kidney disease; E11.42 Type 2 diabetes mellitus with diabetic polyneuropathy; E11.311 Type 2 diabetes mellitus with unspecified diabetic retinopathy with macular edema; E11.51 Type 2 diabetes mellitus with diabetic peripheral angiopathy without gangrene; I07.1 Rheumatic tricuspid insufficiency; Z89.512 Acquired absence of left leg below knee; Z99.2 Dependence on renal dialysis; Z89.511 Acquired absence of right leg below knee
CPT/HCPCS: 36415; 36600; 70450-TC; 71045-TC-FY; 71275-TC; 80048; 80053; 82140; 82272; 82803; 82962; 83036; 83735; 84100; 84484; 85025; 85027; 85379; 85610; 85730; 86803; 86850; 86900; 86901; 87040; 87324; 87340; 87449; 93005; 93010; 93306-TC; 94640; 94660; 94761; 97116-GP; 97162-GP; 99291; C9803-CS; G0378; G0480; Q5106; U0003; U0005

== ENCOUNTER 2022-03-23 12:49 | Emergency (ER) | payer OTHER ==
[2022-03-23 13:01] VITALS: BP 143/55; PULSE 97; RESP 18; TEMP 97.9; BMI 23.3
== END 2022-03-23 17:30 ==
LOC: JER 12:49
DX: T82.838A Hemorrhage due to vascular prosthetic devices, implants and grafts, initial encounter (principal); N18.6 End stage renal disease; Z99.2 Dependence on renal dialysis
CPT/HCPCS: 99283-25

== ENCOUNTER 2022-03-27 07:59 | Inpatient (IN) | payer OTHER ==
[2022-03-27 08:18] VITALS: BMI 25.9
[2022-03-27] MEDS ORDERED: METOPROLOL TARTRATE 5 MG/5 ML VIAL IVPUSH ONE (08:39)
[2022-03-27] MEDS ORDERED: METOPROLOL TARTRATE 5 MG/5 ML VIAL ONE (09:09)
[2022-03-27 09:33] LABS: BASO % 1.1 % (0-2.0); EOS % 5.5 % (0-4.5); HEMATOCRIT 20.1 % (35.4-49); LYMPH % 10.4 % (8-40); MCH 27.8 pg (25.7-33.7); MCHC 31.5 g/dl (32.0-35.9); MEAN CELL VOLUME 88.2 fl (80-96); MEAN PLT VOLUME 8.2 fl (7.5-11.1); MONO % 13.3 % (3.8-10.2); NEUT % 69.7 % (42.8-82.8); PLATELET COUNT 495 10^3/uL (134-434); RBC 2.28 M/mm3 (4.00-5.60); RDW 18.7 % (11.9-15.9); WHITE BLOOD COUNT 7.5 K/mm3 (4.0-10.0)
[2022-03-27] MEDS ORDERED: METOPROLOL TARTRATE 25 MG TABLET (FP) PO ONE (09:34)
[2022-03-27 09:38] LABS: HEMOGLOBIN 6.3 GM/dL (11.7-16.9)
[2022-03-27] MEDS ORDERED: METOPROLOL TARTRATE 25 MG TABLET (FP) ONE (09:38)
[2022-03-27] MEDS ORDERED: ACETAMINOPHEN 1000 MG/100 ML BAG IVPB ONE (10:08)
[2022-03-27] MEDS ORDERED: ACETAMINOPHEN INJECTION 100 ML IVPB ONE (10:11)
[2022-03-27 10:13] LABS: CALCIUM 7.7 mg/dL (8.5-10.1)
[2022-03-27 10:14] LABS: ALBUMIN 2.2 g/dl (3.4-5.0); BLOOD UREA NITROGEN 27.7 mg/dL (7-18); MAGNESIUM 2.2 mg/dL (1.8-2.4)
[2022-03-27 10:16] LABS: PHOSPHOROUS 6.1 mg/dL (2.5-4.9)
[2022-03-27 10:17] LABS: CREATININE 6.8 mg/dL (0.55-1.3)
[2022-03-27 10:18] LABS: BILIRUBIN,TOTAL 0.7 mg/dL (0.2-1); TOT PROT 5.6 g/dl (6.4-8.2)
[2022-03-27] MEDS ORDERED: SODIUM CHLORIDE 250 ML IV PRN (15:01)
[2022-03-27] MEDS ORDERED: guaiFENesin/D-M SUGAR-FREE/ACLHOL-FREE 5 ML UNIT DOSE PO PRN (21:07)
[2022-03-28] MEDS ORDERED: ALBUTEROL SO4 2.5/IPRATROPIUM 0.5 INH SOL 3 ML VIAL.NEB. NEB PRN (06:04)
[2022-03-28] MEDS ORDERED: ACETAMINOPHEN 325 MG TABLET (FP) PO PRN (06:04)
[2022-03-28] MEDS ORDERED: ALBUTEROL SO4 HFA INHALER IH PRN (06:04)
[2022-03-28] MEDS ORDERED: ALBUTEROL SO4 0.083% IH SOL 2.5 MG/3 ML VIAL.NEB. NEB PRN (06:04)
[2022-03-28] MEDS: INSULIN SLIDING SCALE (NOVOLOG) 1 VIAL SQ SCH ×4 (06:53→21:36)
[2022-03-28] MEDS: METOPROLOL TARTRATE 50 MG TABLET (FP) PO SCH ×2 (08:43→21:28)
[2022-03-28] MEDS: INSULIN (LEVEMIR) 100 UNITS/ML UNITS SQ SCH ×2 (09:05→21:36)
[2022-03-28] MEDS: TORSEMIDE 10 MG TABLET PO SCH (12:15)
[2022-03-28] MEDS: BUDESONIDE/FORMETEROL FUMARATE 160/4.5 mcg INHALER IH SCH ×2 (12:54→21:36)
[2022-03-28 12:58] LABS: HEMATOCRIT 19.1 % (35.4-49); MCH 27.8 pg (25.7-33.7); MCHC 31.3 g/dl (32.0-35.9); MEAN CELL VOLUME 88.8 fl (80-96); MEAN PLT VOLUME 8.5 fl (7.5-11.1); PLATELET COUNT 466 10^3/uL (134-434); RBC 2.15 M/mm3 (4.00-5.60); RDW 18.8 % (11.9-15.9); WHITE BLOOD COUNT 6.9 K/mm3 (4.0-10.0)
[2022-03-28 13:21] LABS: CALCIUM 7.7 mg/dL (8.5-10.1)
[2022-03-28 13:22] LABS: BLOOD UREA NITROGEN 31.8 mg/dL (7-18)
[2022-03-28 13:25] LABS: CREATININE 7.4 mg/dL (0.55-1.3); PHOSPHOROUS 6.7 mg/dL (2.5-4.9)
[2022-03-28] MEDS ORDERED: METOPROLOL TARTRATE 5 MG/5 ML VIAL IVPUSH PRN (17:27)
[2022-03-28] MEDS ORDERED: EPOETIN ALFA-EPBX 20,000 UNIT/ML VIAL IVPUSH ONE (18:00)
[2022-03-28] MEDS: ASPIRIN COATED 81 MG TABLET.EC PO SCH (18:56)
[2022-03-28] MEDS: ALBUTEROL SO4 2.5/IPRATROPIUM 0.5 INH SOL 3 ML VIAL.NEB. NEB SCH (20:05)
[2022-03-28] MEDS: ATORVASTATIN CA 40 MG TABLET (FP) PO SCH (21:28)
[2022-03-28] MEDS: traZODone HCL 50 MG TABLET (FP) PO SCH (21:28)
[2022-03-29] MEDS: INSULIN (LEVEMIR) 100 UNITS/ML UNITS SQ SCH ×2 (06:23→21:43)
[2022-03-29] MEDS: INSULIN SLIDING SCALE (NOVOLOG) 1 VIAL SQ SCH ×4 (06:23→21:44)
[2022-03-29] MEDS: ALBUTEROL SO4 2.5/IPRATROPIUM 0.5 INH SOL 3 ML VIAL.NEB. NEB SCH ×3 (07:57→20:05)
[2022-03-29] MEDS: TORSEMIDE 10 MG TABLET PO SCH (10:09)
[2022-03-29] MEDS: METOPROLOL TARTRATE 50 MG TABLET (FP) PO SCH ×2 (10:09→21:24)
[2022-03-29] MEDS: ASPIRIN COATED 81 MG TABLET.EC PO SCH (10:09)
[2022-03-29] MEDS: PANTOPRAZOLE 40 MG TABLET PO SCH (10:09)
[2022-03-29] MEDS: BUDESONIDE/FORMETEROL FUMARATE 160/4.5 mcg INHALER IH SCH ×2 (10:10→21:44)
[2022-03-29] MEDS ORDERED: SODIUM CHLORIDE 250 ML IV PRN (11:01)
[2022-03-29] MEDS: ATORVASTATIN CA 40 MG TABLET (FP) PO SCH (21:24)
[2022-03-29] MEDS: traZODone HCL 50 MG TABLET (FP) PO SCH (21:24)
[2022-03-30] MEDS: INSULIN SLIDING SCALE (NOVOLOG) 1 VIAL SQ SCH ×4 (06:32→22:28)
[2022-03-30] MEDS: INSULIN (LEVEMIR) 100 UNITS/ML UNITS SQ SCH ×2 (06:32→22:28)
[2022-03-30] MEDS: ALBUTEROL SO4 2.5/IPRATROPIUM 0.5 INH SOL 3 ML VIAL.NEB. NEB SCH ×3 (08:07→20:12)
[2022-03-30 09:35] LABS: BASO % 1.4 % (0-2.0); EOS % 4.7 % (0-4.5); HEMATOCRIT 23.2 % (35.4-49); HEMOGLOBIN 7.6 GM/dL (11.7-16.9); MCH 28.6 pg (25.7-33.7); MCHC 32.5 g/dl (32.0-35.9); MEAN CELL VOLUME 87.8 fl (80-96); MEAN PLT VOLUME 8.2 fl (7.5-11.1); MONO % 12.9 % (3.8-10.2); PLATELET COUNT 429 10^3/uL (134-434); RBC 2.65 M/mm3 (4.00-5.60); RDW 17.3 % (11.9-15.9); WHITE BLOOD COUNT 7.8 K/mm3 (4.0-10.0)
[2022-03-30 10:29] LABS: ALBUMIN 2.2 g/dl (3.4-5.0); CALCIUM 7.5 mg/dL (8.5-10.1)
[2022-03-30 10:30] LABS: BLOOD UREA NITROGEN 27.5 mg/dL (7-18)
[2022-03-30 10:32] LABS: CREATININE 6.8 mg/dL (0.55-1.3)
[2022-03-30 10:34] LABS: BILIRUBIN,TOTAL 0.6 mg/dL (0.2-1); TOT PROT 5.5 g/dl (6.4-8.2)
[2022-03-30] MEDS: TORSEMIDE 10 MG TABLET PO SCH (10:58)
[2022-03-30] MEDS: METOPROLOL TARTRATE 50 MG TABLET (FP) PO SCH ×2 (10:58→22:28)
[2022-03-30] MEDS: BUDESONIDE/FORMETEROL FUMARATE 160/4.5 mcg INHALER IH SCH ×2 (11:07→22:29)
[2022-03-30] MEDS: PANTOPRAZOLE 40 MG TABLET PO SCH (11:08)
[2022-03-30] MEDS: ASPIRIN COATED 81 MG TABLET.EC PO SCH (11:08)
[2022-03-30] MEDS ORDERED: SODIUM CHLORIDE 250 ML IV PRN (11:09)
[2022-03-30] MEDS: traZODone HCL 50 MG TABLET (FP) PO SCH (22:27)
[2022-03-30] MEDS: ATORVASTATIN CA 40 MG TABLET (FP) PO SCH (22:28)
[2022-03-31] MEDS: INSULIN SLIDING SCALE (NOVOLOG) 1 VIAL SQ SCH ×4 (06:40→22:38)
[2022-03-31] MEDS: INSULIN (LEVEMIR) 100 UNITS/ML UNITS SQ SCH ×2 (06:40→22:38)
[2022-03-31] MEDS: ALBUTEROL SO4 2.5/IPRATROPIUM 0.5 INH SOL 3 ML VIAL.NEB. NEB SCH ×3 (08:09→20:35)
[2022-03-31] MEDS: PANTOPRAZOLE 40 MG TABLET PO SCH (09:50)
[2022-03-31] MEDS: BUDESONIDE/FORMETEROL FUMARATE 160/4.5 mcg INHALER IH SCH ×2 (09:55→22:38)
[2022-03-31] MEDS: ASPIRIN COATED 81 MG TABLET.EC PO SCH (09:55)
[2022-03-31] MEDS ORDERED: LOPERAMIDE HCL 2 MG CAPSULE PO ONE (12:59)
[2022-03-31] MEDS ORDERED: SODIUM CHLORIDE 250 ML IV PRN (13:42)
[2022-03-31] MEDS ORDERED: EPOETIN ALFA-EPBX 20,000 UNIT/ML VIAL IVPUSH ONE (14:30)
[2022-03-31 15:51] LABS: HEMATOCRIT 22.9 % (35.4-49); HEMOGLOBIN 7.2 GM/dL (11.7-16.9); MCH 27.6 pg (25.7-33.7); MCHC 31.5 g/dl (32.0-35.9); MEAN CELL VOLUME 87.9 fl (80-96); MEAN PLT VOLUME 8.7 fl (7.5-11.1); PLATELET COUNT 441 10^3/uL (134-434); RBC 2.61 M/mm3 (4.00-5.60); RDW 17.7 % (11.9-15.9); WHITE BLOOD COUNT 7.8 K/mm3 (4.0-10.0)
[2022-03-31 16:11] LABS: CHLORIDE 103 mmol/L (98-107); SODIUM 141 mmol/L (136-145)
[2022-03-31 16:12] LABS: CALCIUM 7.2 mg/dL (8.5-10.1)
[2022-03-31 16:13] LABS: ANION GAP 13 MMOL/L (8-16); BLOOD UREA NITROGEN 38.1 mg/dL (7-18); CO2 25 mmol/L (21-32); GLUCOSE,RANDOM 184 mg/dL (74-106)
[2022-03-31 16:37] LABS: CREATININE 7.8 mg/dL (0.55-1.3)
[2022-03-31] MEDS: TORSEMIDE 10 MG TABLET PO SCH (17:08)
[2022-03-31] MEDS: METOPROLOL TARTRATE 50 MG TABLET (FP) PO SCH ×2 (17:10→22:37)
[2022-03-31] MEDS: VANCOMYCIN 250 MG/5 ML ORAL SOLUTION PO SCH ×2 (18:58→23:01)
[2022-03-31] MEDS: traZODone HCL 50 MG TABLET (FP) PO SCH (22:36)
[2022-03-31] MEDS: ATORVASTATIN CA 40 MG TABLET (FP) PO SCH (22:37)
[2022-04-01] MEDS: INSULIN SLIDING SCALE (NOVOLOG) 1 VIAL SQ SCH ×3 (06:52→16:34)
[2022-04-01] MEDS: VANCOMYCIN 250 MG/5 ML ORAL SOLUTION PO SCH ×4 (06:52→23:30)
[2022-04-01] MEDS: INSULIN (LEVEMIR) 100 UNITS/ML UNITS SQ SCH (06:52)
[2022-04-01] MEDS: ALBUTEROL SO4 2.5/IPRATROPIUM 0.5 INH SOL 3 ML VIAL.NEB. NEB SCH ×3 (08:13→20:44)
[2022-04-01] MEDS: BUDESONIDE/FORMETEROL FUMARATE 160/4.5 mcg INHALER IH SCH (09:52)
[2022-04-01] MEDS: ASPIRIN COATED 81 MG TABLET.EC PO SCH (09:52)
[2022-04-01] MEDS: METOPROLOL TARTRATE 50 MG TABLET (FP) PO SCH ×2 (09:52→22:49)
[2022-04-01] MEDS: TORSEMIDE 10 MG TABLET PO SCH (09:56)
[2022-04-01] MEDS: PANTOPRAZOLE 40 MG TABLET PO SCH (09:56)
[2022-04-01] MEDS: traZODone HCL 50 MG TABLET (FP) PO SCH (22:49)
[2022-04-01] MEDS: ATORVASTATIN CA 40 MG TABLET (FP) PO SCH (22:50)
[2022-04-02] MEDS: INSULIN (LEVEMIR) 100 UNITS/ML UNITS SQ SCH ×3 (01:25→21:26)
[2022-04-02] MEDS: BUDESONIDE/FORMETEROL FUMARATE 160/4.5 mcg INHALER IH SCH ×3 (01:26→22:01)
[2022-04-02] MEDS: INSULIN SLIDING SCALE (NOVOLOG) 1 VIAL SQ SCH ×5 (01:26→21:26)
[2022-04-02] MEDS: VANCOMYCIN 250 MG/5 ML ORAL SOLUTION PO SCH ×3 (06:55→17:19)
[2022-04-02] MEDS: ALBUTEROL SO4 2.5/IPRATROPIUM 0.5 INH SOL 3 ML VIAL.NEB. NEB SCH (07:20)
[2022-04-02] MEDS: TORSEMIDE 10 MG TABLET PO SCH (10:39)
[2022-04-02] MEDS: ASPIRIN COATED 81 MG TABLET.EC PO SCH (10:40)
[2022-04-02] MEDS: METOPROLOL TARTRATE 50 MG TABLET (FP) PO SCH ×2 (10:40→21:20)
[2022-04-02] MEDS: PANTOPRAZOLE 40 MG TABLET PO SCH (10:40)
[2022-04-02] MEDS ORDERED: SODIUM CHLORIDE 250 ML IV PRN (12:50)
[2022-04-02] MEDS: traZODone HCL 50 MG TABLET (FP) PO SCH (21:18)
[2022-04-02] MEDS: ATORVASTATIN CA 40 MG TABLET (FP) PO SCH (21:18)
[2022-04-03] MEDS: VANCOMYCIN 250 MG/5 ML ORAL SOLUTION PO SCH ×3 (00:59→12:56)
[2022-04-03] MEDS: INSULIN (LEVEMIR) 100 UNITS/ML UNITS SQ SCH ×2 (06:31→21:29)
[2022-04-03] MEDS: INSULIN SLIDING SCALE (NOVOLOG) 1 VIAL SQ SCH ×4 (06:31→21:29)
[2022-04-03] MEDS ORDERED: EPOETIN ALFA-EPBX 20,000 UNIT/2 ML MDV IVPUSH ONE (08:00)
[2022-04-03] MEDS: PANTOPRAZOLE 40 MG TABLET PO SCH (10:53)
[2022-04-03] MEDS: ASPIRIN COATED 81 MG TABLET.EC PO SCH (10:53)
[2022-04-03] MEDS: BUDESONIDE/FORMETEROL FUMARATE 160/4.5 mcg INHALER IH SCH ×2 (10:54→21:29)
[2022-04-03] MEDS: METOPROLOL TARTRATE 50 MG TABLET (FP) PO SCH ×2 (13:45→21:27)
[2022-04-03] MEDS: TORSEMIDE 10 MG TABLET PO SCH (13:45)
[2022-04-03 14:14] LABS: HEMATOCRIT 24.4 % (35.4-49); HEMOGLOBIN 7.7 GM/dL (11.7-16.9); MCH 28.3 pg (25.7-33.7); MCHC 31.8 g/dl (32.0-35.9); MEAN CELL VOLUME 88.9 fl (80-96); MEAN PLT VOLUME 8.5 fl (7.5-11.1); PLATELET COUNT 482 10^3/uL (134-434); RBC 2.74 M/mm3 (4.00-5.60); RDW 17.8 % (11.9-15.9); WHITE BLOOD COUNT 8.9 K/mm3 (4.0-10.0)
[2022-04-03] MEDS ORDERED: SODIUM CHLORIDE 250 ML IV PRN (14:29)
[2022-04-03 14:34] LABS: CALCIUM 7.4 mg/dL (8.5-10.1)
[2022-04-03 14:35] LABS: BLOOD UREA NITROGEN 36.4 mg/dL (7-18)
[2022-04-03 14:38] LABS: CREATININE 7.4 mg/dL (0.55-1.3); PHOSPHOROUS 7.2 mg/dL (2.5-4.9)
[2022-04-03] MEDS ORDERED: IRON SUCROSE INJECTION 100 MG in SODIUM CHLORIDE 95 ML IVPB ONE (15:00)
[2022-04-03] MEDS: ATORVASTATIN CA 40 MG TABLET (FP) PO SCH (21:27)
[2022-04-03] MEDS: traZODone HCL 50 MG TABLET (FP) PO SCH (21:28)
[2022-04-04] MEDS: INSULIN SLIDING SCALE (NOVOLOG) 1 VIAL SQ SCH ×3 (06:11→17:31)
[2022-04-04] MEDS: INSULIN (LEVEMIR) 100 UNITS/ML UNITS SQ SCH (06:11)
[2022-04-04] MEDS: TORSEMIDE 10 MG TABLET PO SCH (11:03)
[2022-04-04] MEDS: PANTOPRAZOLE 40 MG TABLET PO SCH (11:03)
[2022-04-04] MEDS: ASPIRIN COATED 81 MG TABLET.EC PO SCH (11:03)
[2022-04-04] MEDS: METOPROLOL TARTRATE 50 MG TABLET (FP) PO SCH (11:03)
[2022-04-04] MEDS: BUDESONIDE/FORMETEROL FUMARATE 160/4.5 mcg INHALER IH SCH (11:20)
[2022-04-04 20:59] VITALS: BP 142/81; PULSE 86; RESP 20; TEMP 97.9
== END 2022-04-04 20:20 | DRG 291 ==
LOC: JER 07:59 → JERBED 11:00 → J4S 15:08
PROVIDERS: ADMIT Family Medicine; ATTEND Family Medicine
PROC: 30233N1 Transfusion of Nonautologous Red Blood Cells into Peripheral Vein, Percutaneous Approach (ICD-10-PCS; principal; 2022-03-28)
DX: I13.2 Hypertensive heart and chronic kidney disease with heart failure and with stage 5 chronic kidney disease, or end stage renal disease (principal); N18.6 End stage renal disease; I47.1 Supraventricular tachycardia; I48.92 Unspecified atrial flutter; K92.2 Gastrointestinal hemorrhage, unspecified; I50.32 Chronic diastolic (congestive) heart failure; E11.22 Type 2 diabetes mellitus with diabetic chronic kidney disease; E11.42 Type 2 diabetes mellitus with diabetic polyneuropathy; Z99.2 Dependence on renal dialysis; E11.51 Type 2 diabetes mellitus with diabetic peripheral angiopathy without gangrene; J44.9 Chronic obstructive pulmonary disease, unspecified; E78.5 Hyperlipidemia, unspecified; I48.91 Unspecified atrial fibrillation; K21.9 Gastro-esophageal reflux disease without esophagitis; D63.1 Anemia in chronic kidney disease; R19.7 Diarrhea, unspecified
CPT/HCPCS: 0241U-QW; 36415; 36430; 71045-TC-FY; 80048; 80053; 82272; 82728; 82962; 83540; 83550; 83735; 84100; 84484; 85025; 85027; 86803; 86850; 86900; 86901; 86922; 87077; 87081; 87324; 87340; 87449; 93005; 93010; 94640; 99291; C9803-CS; J1756; P9058; Q5106; U0003; U0005

== ENCOUNTER 2022-04-05 13:01 | Inpatient (IN) | payer OTHER ==
[2022-04-05 13:08] VITALS: BMI 23.2
[2022-04-05 15:44] LABS: HEMATOCRIT 19.1 % (35.4-49); MCH 28.2 pg (25.7-33.7); MCHC 31.5 g/dl (32.0-35.9); MEAN CELL VOLUME 89.6 fl (80-96); MEAN PLT VOLUME 8.2 fl (7.5-11.1); PLATELET COUNT 407 10^3/uL (134-434); RBC 2.14 M/mm3 (4.00-5.60); RDW 17.9 % (11.9-15.9); WHITE BLOOD COUNT 9.7 K/mm3 (4.0-10.0)
[2022-04-05 15:52] LABS: INR 1.65 (0.83-1.09); PROTHROMBIN TIME (PATIENT) 19.1 SEC (9.7-13.0)
[2022-04-05 15:54] LABS: ACTIVATED PTT 45.2 SECONDS (25.2-36.5)
[2022-04-05 16:05] LABS: CALCIUM 7.3 mg/dL (8.5-10.1)
[2022-04-05 16:06] LABS: ALBUMIN 1.9 g/dl (3.4-5.0); BLOOD UREA NITROGEN 30.8 mg/dL (7-18)
[2022-04-05 16:09] LABS: CREATININE 6.5 mg/dL (0.55-1.3)
[2022-04-05 16:10] LABS: BILIRUBIN,TOTAL 0.5 mg/dL (0.2-1)
[2022-04-06] MEDS ORDERED: ACETAMINOPHEN 325 MG TABLET (FP) PO PRN (09:50)
[2022-04-06] MEDS ORDERED: ALBUTEROL SO4 2.5/IPRATROPIUM 0.5 INH SOL 3 ML VIAL.NEB. NEB PRN (09:50)
[2022-04-06] MEDS ORDERED: ALBUTEROL SO4 HFA INHALER IH PRN (09:50)
[2022-04-06] MEDS ORDERED: EPOETIN ALFA-EPBX 20,000 UNIT/ML VIAL SQ ONE (09:57)
[2022-04-06] MEDS ORDERED: SODIUM CHLORIDE 250 ML IV PRN ×2 (09:57→12:06)
[2022-04-06] MEDS: METOPROLOL TARTRATE 50 MG TABLET (FP) PO SCH ×2 (11:42→22:25)
[2022-04-06] MEDS: PANTOPRAZOLE 40 MG TABLET PO SCH (11:42)
[2022-04-06] MEDS ORDERED: PANTOPRAZOLE 40 MG TABLET PO ONE (11:45)
[2022-04-06] MEDS ORDERED: METOPROLOL TARTRATE 50 MG TABLET (FP) ONE ×2 (11:45→21:46)
[2022-04-06] MEDS: INSULIN SLIDING SCALE (NOVOLOG) 1 VIAL SQ SCH (11:50)
[2022-04-06] MEDS ORDERED: ATORVASTATIN CA 40 MG TABLET (FP) ONE (21:46)
[2022-04-06] MEDS ORDERED: ATORVASTATIN CA 40 MG TABLET (FP) PO SCH (22:00)
[2022-04-07] MEDS: INSULIN SLIDING SCALE (NOVOLOG) 1 VIAL SQ SCH ×2 (00:01→09:29)
[2022-04-07 05:21] LABS: HEMATOCRIT 20.9 % (35.4-49); MCH 28.6 pg (25.7-33.7); MCHC 32.5 g/dl (32.0-35.9); MEAN CELL VOLUME 88.1 fl (80-96); MEAN PLT VOLUME 8.4 fl (7.5-11.1); PLATELET COUNT 357 10^3/uL (134-434); RBC 2.37 M/mm3 (4.00-5.60); RDW 16.7 % (11.9-15.9); WHITE BLOOD COUNT 9.6 K/mm3 (4.0-10.0)
[2022-04-07 05:49] LABS: HEMOGLOBIN 6.8 GM/dL (11.7-16.9)
[2022-04-07 06:41] VITALS: RESP 18
[2022-04-07 09:27] VITALS: BP 132/72; PULSE 51; TEMP 98.2
[2022-04-07] MEDS ORDERED: HEPARIN NA (PORCINE) 5,000 UNITS/ML 1ML VIAL IVPUSH ONE (09:29)
[2022-04-07] MEDS ORDERED: HEPARIN - 25,000 UNIT in SODIUM CHLORIDE 495 ML IV SCH (09:30)
[2022-04-07] MEDS: PANTOPRAZOLE 40 MG TABLET PO SCH (09:33)
[2022-04-07] MEDS: METOPROLOL TARTRATE 50 MG TABLET (FP) PO SCH (09:34)
[2022-04-07] MEDS ORDERED: HEPARIN NA (PORCINE) 5,000 UNITS/ML 1ML VIAL ONE (10:03)
== END 2022-04-07 09:36 | disposition short-term general hospital (02) | DRG 314 ==
LOC: JER 13:01 → JERBED 17:57
PROVIDERS: ADMIT Internal Medicine; ATTEND Internal Medicine
PROC: 30233N1 Transfusion of Nonautologous Red Blood Cells into Peripheral Vein, Percutaneous Approach (ICD-10-PCS; principal; 2022-04-05)
DX: T82.838A Hemorrhage due to vascular prosthetic devices, implants and grafts, initial encounter (principal); N18.6 End stage renal disease; I13.2 Hypertensive heart and chronic kidney disease with heart failure and with stage 5 chronic kidney disease, or end stage renal disease; I50.32 Chronic diastolic (congestive) heart failure; I99.8 Other disorder of circulatory system; D64.9 Anemia, unspecified; I73.9 Peripheral vascular disease, unspecified; Z89.512 Acquired absence of left leg below knee; Z89.511 Acquired absence of right leg below knee; J44.9 Chronic obstructive pulmonary disease, unspecified; E11.9 Type 2 diabetes mellitus without complications; N25.0 Renal osteodystrophy; Y83.9 Surgical procedure, unspecified as the cause of abnormal reaction of the patient, or of later complication, without mention of misadventure at the time of the procedure; K21.9 Gastro-esophageal reflux disease without esophagitis; E87.70 Fluid overload, unspecified
CPT/HCPCS: 36415; 36430; 71045-TC-FY; 80053; 82962; 85027; 85610; 85730; 86850; 86900; 86901; 86922; 93005; 93010; 99285-25; C9803-CS; J1644; P9058; U0003; U0005